=== PATIENT | female | born 1970 | race Caucasian/White ===

== ENCOUNTER 2017-10-20 00:12 | Inpatient (IN) | payer MEDICAID ==
[2017-10-20 01:15] LABS: Absolute Lymphocytes (CBC) 0.4 K/uL (0.7-4.9); Absolute Monocytes 0.5 K/uL (0.1-1.3); Absolute Neutrophil 4.3 K/uL (1.8-8.0); Basophils % 2.3 % (0-1.3); Eosinophils % 6.1 % (0-4.4); Hematocrit 27.8 % (36.0-45.0); Lymphocytes % 7.2 % (15.3-44.8); MCH 32.5 pg (27.0-35.0); MCV 97.6 fL (80-100); MPV 9.5 fL (7.6-11.3); Monocytes % 9.4 % (3.3-12.3); RBC Red Blood Cell Count 2.85 M/uL (3.86-4.86)
[2017-10-20 01:31] LABS: Albumin 2.7 g/dL (3.2-5.5); Bilirubin Direct 0.3 mg/dL (0-0.2); Bilirubin Total 0.9 mg/dL (0.3-1.2); Protein, Total 7.5 g/dL (6.0-8.3)
--- NOTE | 2017-10-20 02:43 | EDPHYS ---
Physician Documentation [facility] Name: Amauri Miller Age: 47 yrs Sex: Female : 1970 Arrival Date: 10/20/2017 Time: 00:14 Bed 20 Private MD: ED Physician Gilberto Duenas HPI: 10/20 02:36 This 47 yrs old Female presents to ER via Wheelchair with complaints of LIVER gs PROBLEMS, POSSIBLE HIGH AMONIA LEVELS. 02:36 The patient presents to the emergency department with weakness of the entire body, gs generalized weakness. Onset: The symptoms/episode began/occurred 1 week(s) ago, and became worse and became persistent. Associated signs and symptoms: Pertinent negatives: altered mental status. Severity of symptoms: At their worst the symptoms were moderate in the emergency department the symptoms are unchanged. Current symptoms: Currently, the patient is not experiencing any symptoms. The patient has experienced similar episodes in the past, several times. EDI ARCHITECT: 03:30 LMP N/A - lk1 Historical: - Allergies: 00:33 No Known Allergies; ak1 - Home Meds: 00:33 ciprofloxacin chl 500 mg once dialy for 30 days [Active]; ferrous sulfate 134 mg (27 mg ak1 iron) Oral tab [Active]; folic acid 1 mg Oral tab 1 tab once daily [Active]; furosemide 40 mg Oral tab 1 tab once daily [Active]; lactulose 20 gram/30 mL Oral soln 30 mL 3 times per day [Active]; multivitamin with minerals Oral tab [Active]; nadolol 20 mg Oral tab 1 tab once daily [Active]; omeprazole 20 mg Oral cpDR 2 caps 2 times per day [Active]; Zofran (as hydrochloride) 4 mg Oral tab 2 tabs for one tab as needed [Active]; potassium chloride 20 mEq Oral TbTQ 1 tab once daily [Active]; rifaximin 550 mg tab Oral 1 tab 2 times per day [Active]; sodium bicarbonate 650 mg Oral tab twice a day [Active]; spironolactone 100 mg Oral tab 1 tab once daily [Active]; vitamin b1 [Active]; Vitamin B-6 Oral [Active]; - PMHx: 00:33 Anemia; Cirrhosis; Hernia; second one, not repaired; possible htn; ak1 - PSHx: 00:33 Hernia repair; paracentesis- 7 or 8 L removed weekly; ak1 - Immunization history:: Adult Immunizations unknown. - Social history:: Smoking status: Patient uses tobacco products, denies chronic smoking, but will smoke occasionally. ROS: 02:36 All other systems are negative. gs Exam: 02:36 Head/Face: Normocephalic, atraumatic. Eyes: Pupils equal round and reactive to light, gs extra-ocular motions intact. Lids and lashes normal. Conjunctiva and sclera are non-icteric and not injected. Cornea within normal limits. Periorbital areas with no swelling, redness, or edema. ENT: Nares patent. No nasal discharge, no septal abnormalities noted. Tympanic membranes are normal and external auditory canals are clear. Oropharynx with no redness, swelling, or masses, exudates, or evidence of obstruction, uvula midline. Mucous membranes moist. Neck: Trachea midline, no thyromegaly or masses palpated, and no cervical lymphadenopathy. Supple, full range of motion without nuchal rigidity, or vertebral point tenderness. No Meningismus. Chest/axilla: Normal chest wall appearance and motion. Nontender with no deformity. No lesions are appreciated. Cardiovascular: Regular rate and rhythm with a normal S1 and S2. No gallops, murmurs, or rubs. Normal PMI, no JVD. No pulse deficits. Respiratory: Lungs have equal breath sounds bilaterally, clear to auscultation and percussion. No rales, rhonchi or wheezes noted. No increased work of breathing, no retractions or nasal flaring. Back: No spinal tenderness. No costovertebral tenderness. Full range of motion. Skin: Warm, dry with normal turgor. Normal color with no rashes, no lesions, and no evidence of cellulitis. MS/ Extremity: Pulses equal, no cyanosis. Neurovascular intact. Full, normal range of motion. Neuro: Awake and alert, GCS 15, oriented to person, place, time, and situation. Cranial nerves II-XII grossly intact. Motor strength 5/5 in all extremities. Sensory grossly intact. Cerebellar exam normal. Normal gait. 02:36 Constitutional: The patient appears alert, awake. 02:36 Abdomen/GI: Inspection: distension, that is moderate, Palpation: abdomen is soft and non-tender, Liver: is enlarged. Vital Signs: 00:30 BP 110 / 76; Pulse 80; Resp 18; Temp 98.4; Pulse Ox 100% on R/A; Weight 61.69 kg (R); ak1 Height 5 ft. 6 in. (167.64 cm) (R); Pain 10/10; 01:00 BP 101 / 62; Pulse 79; Resp 18; Pulse Ox 100% on R/A; lk1 01:30 BP 79 / 55; Pulse 82; Resp 16; Pulse Ox 100% on R/A; Pain 0/10; lk1 02:30 BP 83 / 47; Pulse 79; Resp 16; Pulse Ox 100% on R/A; lk1 03:00 BP 89 / 52; Pulse 86; Resp 15; Pulse Ox 100% on R/A; lk1 03:30 BP 86 / 53; Pulse 85; Resp 16; Pulse Ox 99% on R/A; lk1 00:30 Body Mass Index 21.95 (61.69 kg, 167.64 cm) ak1 01:30 sleeping lk1 03:00 sleeping lk1 03:30 sleeping lk1 MDM: 00:42 Patient medically screened. 02:36 Data reviewed: vital signs, nurses notes. Data interpreted: physical therapy coordinator: Pulse gs oximetry:. ED course: ddx-liver failure,hyperammonia,gen weakness, sepsis. 03 00:43 Order name: Basic Metabolic Panel 10/20 00:43 Order name: CBC with Diff 10/20 00:43 Order name: Hepatic Function 10/20 00:43 Order name: Lipase 10/20 00:43 Order name: AMMONIA 10/20 00:43 Order name: IV Saline Lock; Complete Time: 00:57 10/20 00:43 Order name: Labs collected and sent; Complete Time: 00:57 10/20 01:18 Order name: CBC with Automated Diff; Complete Time: 01:28 EDMS 10/20 01:25 Order name: Basic Metabolic Panel; Complete Time: 02:33 EDMS 10/20 01:25 Order name: Lipase; Complete Time: 02:33 EDMS 10/20 01:31 Order name: Ammonia; Complete Time: 02:33 EDMS 10/20 01:32 Order name: Liver (Hepatic) Function; Complete Time: 02:33 EDMS Administered Medications: 04:12 Drug: Lactulose 30 grams Volume: 45 ml; Route: PO; lk1 04:43 Follow up: Response: No adverse reaction lk1 Disposition: 10/20/17 02:43 Hospitalization ordered by Lizeth Etienne for Inpatient Admission. Preliminary diagnosis is Encephalopathy, unspecified. - Bed requested for Telemetry/MedSurg (Inpatient). - Status is Inpatient Admission. lk1 - Condition is Stable. - Problem is new. - Symptoms are unchanged. UTI on Admission? No Signatures: Dispatcher [employer] EDMS Josi Ruiz RN RN Angella Gtz RN KIMBERLY mo1 Lorena Claire RN RN lk1 Gilberto Duenas MD MD gs Corrections: (The following items were deleted from the chart) 00:57 00:44 UA MICROSCOPIC+U.LAB.BRZ ordered. EDMS EDMS
--- NOTE | 2017-10-20 02:43 | ER ---
Nurse's Notes [facility] Name: Amauri Miller Age: 47 yrs Sex: Female : 1970 Arrival Date: 10/20/2017 Time: 00:14 Bed 20 Private MD: Diagnosis: Encephalopathy, unspecified Presentation: 10/20 00:30 Presenting complaint: Patient states: pain to abd hernia site. pt stated pt ak1 ammonia lever may be high. pt abd was drained last on Saturday. pt c/o vomiting 3 times today. Transition of care: patient was not received from another setting of care. Onset of symptoms is unknown. Care prior to arrival: None. 00:30 Method Of Arrival: Wheelchair ak1 00:30 Acuity: CASI 4 ak1 Triage Assessment: 00:33 General: Appears in no apparent distress. Behavior is calm, cooperative. 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 LMP N/A - lk1 Historical: - Allergies: 00:33 No Known Allergies; ak1 - Home Meds: 00:33 ciprofloxacin chl 500 mg once dialy for 30 days [Active]; ferrous sulfate 134 mg (27 mg ak1 iron) Oral tab [Active]; folic acid 1 mg Oral tab 1 tab once daily [Active]; furosemide 40 mg Oral tab 1 tab once daily [Active]; lactulose 20 gram/30 mL Oral soln 30 mL 3 times per day [Active]; multivitamin with minerals Oral tab [Active]; nadolol 20 mg Oral tab 1 tab once daily [Active]; omeprazole 20 mg Oral cpDR 2 caps 2 times per day [Active]; Zofran (as hydrochloride) 4 mg Oral tab 2 tabs for one tab as needed [Active]; potassium chloride 20 mEq Oral TbTQ 1 tab once daily [Active]; rifaximin 550 mg tab Oral 1 tab 2 times per day [Active]; sodium bicarbonate 650 mg Oral tab twice a day [Active]; spironolactone 100 mg Oral tab 1 tab once daily [Active]; vitamin b1 [Active]; Vitamin B-6 Oral [Active]; - PMHx: 00:33 Anemia; Cirrhosis; Hernia; second one, not repaired; possible htn; ak1 - PSHx: 00:33 Hernia repair; paracentesis- 7 or 8 L removed weekly; ak1 - Immunization history:: Adult Immunizations unknown. - Social history:: Smoking status: Patient uses tobacco products, denies chronic smoking, but will smoke occasionally. Screenin:04 Abuse screen: Denies threats or abuse. Denies injuries from another. Nutritional lk1 screening: No deficits noted. Tuberculosis screening: No symptoms or risk factors identified. Fall Risk Total Mora Fall Scale indicates High Risk Score (45 or more points). Fall prevention measures have been instituted. Side Rails Up X 2 Placed Close to Nursing Station Frequent Obs/Assessments Occuring Family Present and informed to notify staff if the need to leave the bedside As available patient and family educated on Fall Prevention Program and Strategies. Assessment: 00:35 General: Appears uncomfortable, Behavior is calm, cooperative, appropriate for age. lk1 Pain: Complains of pain in abdomen Pain currently is 10 out of 10 on a pain scale. Quality of pain is described as aching. Neuro: Level of Consciousness is awake, alert, obeys commands, Oriented to person, place, time, situation, Moves all extremities. Weakness Gait is unsteady, Speech is normal, Facial symmetry appears normal, Patient states she "feels woozy" and "My vision is a little blurry" and "I can tell my ammonia his high when I feel like this" . Cardiovascular: Heart tones S1 S2 present Capillary refill < 3 seconds Patient's skin is warm and dry. Respiratory: Airway is patent Respiratory effort is even, unlabored, Respiratory pattern is regular, symmetrical, Breath sounds are clear bilaterally. GI: Abdomen is distended, noted to have ascites, Bowel sounds diminished in right upper quadrant, left upper quadrant, right lower quadrant and left lower quadrant. : : No signs and/or symptoms were reported regarding the genitourinary system. EENT: No signs and/or symptoms were reported regarding the EENT system. Derm: No signs and/or symptoms reported regarding the dermatologic system. Musculoskeletal: No signs and/or symptoms reported regarding the musculoskeletal system. Vital Signs: 00:30 BP 110 / 76; Pulse 80; Resp 18; Temp 98.4; Pulse Ox 100% on R/A; Weight 61.69 kg (R); ak1 Height 5 ft. 6 in. (167.64 cm) (R); Pain 10/10; 01:00 BP 101 / 62; Pulse 79; Resp 18; Pulse Ox 100% on R/A; lk1 01:30 BP 79 / 55; Pulse 82; Resp 16; Pulse Ox 100% on R/A; Pain 0/10; lk1 02:30 BP 83 / 47; Pulse 79; Resp 16; Pulse Ox 100% on R/A; lk1 03:00 BP 89 / 52; Pulse 86; Resp 15; Pulse Ox 100% on R/A; lk1 03:30 BP 86 / 53; Pulse 85; Resp 16; Pulse Ox 99% on R/A; lk1 00:30 Body Mass Index 21.95 (61.69 kg, 167.64 cm) ak1 01:30 sleeping lk1 03:00 sleeping lk1 03:30 sleeping lk1 ED Course: 00:14 Patient arrived in ED. al2 00:26 Gilberto Duenas MD is Attending Physician. gs 00:31 Triage completed. ak1 00:33 Arm band placed on Patient placed in an exam room, Patient notified of wait time. ak1 00:57 AMMONIA Sent. cc 00:57 Basic Metabolic Panel Sent. cc 00:57 CBC with Diff Sent. cc 00:57 Hepatic Function Sent. cc 00:57 Lipase Sent. cc 00:57 Initial lab(s) drawn, by me, sent to lab. Inserted saline lock: 20 gauge in right cc forearm, using aseptic technique. Blood collected. 00:59 Lorena Claire, KIMBERLY is Primary Nurse. lk1 02:42 Lizeth Etienne MD is Hospitalizing Provider. gs 04:04 Patient has correct armband on for positive identification. Placed in gown. Bed in low lk1 position. Call light in reach. Adult w/ patient. 04:04 No provider procedures requiring assistance completed. lk1 04:05 Patient admitted, IV remains in place. lk1 Administered Medications: 04:12 Drug: Lactulose 30 grams Volume: 45 ml; Route: PO; lk1 04:43 Follow up: Response: No adverse reaction lk1 Outcome: 02:43 Decision to Hospitalize by Provider. gs 04:42 Admitted to Med/surg accompanied by tech, via stretcher, room 401, with chart. lk1 04:42 Condition: unchanged 04:42 Discharge instructions given to patient, family, Instructed on the need for admit, Demonstrated understanding of instructions. 04:43 Patient left the ED. lk1 Signatures: TenriismSusanne whitlock Amber RN RN ak1 Lorena Claire, RN RN lk1 Gilberto Duenas MD MD gs Love, Angelica al2 Corrections: (The following items were deleted from the chart) 04:05 04:04 IV discontinued, lk1 lk1
[2017-10-20] MEDS ORDERED: ACETAMINOPHEN 500 MG TAB PO PRN (03:26)
[2017-10-20] MEDS: LACTULOSE 20 GM/30 ML UCUP PO SCH ×4 (04:00→21:33)
[2017-10-20] MEDS ORDERED: LACTULOSE 20 GM/30 ML UCUP ONE (04:13)
[2017-10-20] MEDS: MORPHINE 2 MG/ML SYR IV PRN ×3 (05:38→21:33)
[2017-10-20] MEDS: NA CHLORIDE 0.9% 1,000 ML IV SCH (05:38)
[2017-10-20] MEDS ORDERED: VANCOMYCIN 1.5 GM in NA CHLORIDE 0.9% 500 ML IVPB ONE (06:30)
[2017-10-20] MEDS: NADOLOL 40 MG TAB PO SCH (08:23)
[2017-10-20] MEDS: MULTIVITAMIN TAB PO SCH (08:23)
[2017-10-20] MEDS: THIAMINE HCL 100 MG TABLET PO SCH (08:23)
[2017-10-20] MEDS: FERROUS SULFATE 325 MG TAB PO SCH (08:24)
[2017-10-20] MEDS: PANTOPRAZOLE 40MG TABLET PO SCH (08:24)
[2017-10-20] MEDS: PYRIDOXINE (VIT B6) 50 MG TAB PO SCH (08:25)
[2017-10-20] MEDS: Rifaximin 550 MG Tab PO SCH ×2 (08:25→21:00)
[2017-10-20] MEDS: ASPIRIN 81 MG CHEWABLE TABLET PO SCH (08:28)
[2017-10-20] MEDS: FOLIC ACID 1 MG TABLET PO SCH (08:28)
[2017-10-20] MEDS: ONDANSETRON 4 MG/2 ML VIAL IV PRN (08:33)
[2017-10-20] MEDS ORDERED: FUROSEMIDE 40 MG TABLET PO SCH (09:00)
[2017-10-20] MEDS ORDERED: SPIRONOLACTONE 100 MG TAB PO SCH (09:00)
--- NOTE | 2017-10-20 09:06 | P.HP ---
Certification for Inpatient Patient admitted to: Inpatient With expected LOS: >2 Midnights Practitioner: I am a practitioner with admitting privileges, knowledge of patient current condition, hospital course, and medical plan of care. Services: Services provided to patient in accordance with Admission requirements found in Title 42 Section 412.3 of the Code of Federal Regulations Patient History Date of Service: 10/20/17 Reason for admission: Hepatic encephalopathy History of Present Illness: Patient is a 47-year-old female who came into the hospital with altered mental status. Patient recently had a paracentesis done this past Saturday. Patient had 4-5 L of fluid removed. Patient felt somewhat better however she did become more altered. Patient has a history of alcoholic liver cirrhosis. Patient's last drink was about 2 weeks ago. She has had a hard time remaining sober. She has had many family members who have recently. It has been very stressful for her. I had a long talk with her regarding her current condition and the importance of refraining from alcohol so she can possibly get to see a lead accountant and try to get on the transplant list. On this admission , she came in with an elevated ammonia level. She was found to have hepatic encephalopathy. She will be admitted to the hospital for further treatment. She is scheduled for a paracentesis to have additional fluid removed in the morning. We will go ahead and consult Gastroenterology to see if we can arrange for this in the morning. Allergies NKDA Allergy (Uncoded 09/21/15 18:36) Unknown No Known Allergies Allergy (Uncoded 08/16/17 17:44) Unknown Home Medications: Aspirin Chewable [Aspirin Chewable*] 81 mg PO DAILY 02/15/16 Furosemide [Lasix*] 40 mg PO DAILY 02/15/16 Lactulose 20 gm PO TID 02/15/16 Spironolactone [Aldactone*] 20 mg PO DAILY 02/15/16 Ferrous Sulfate [Slow Fe] 1 tab PO DAILY 10/20/17 Folic Acid 1 tab PO DAILY 10/20/17 Multivitamin-Min/Iron/FA/Vit K [Multi-Day Plus Minerals Tablet] 1 tab PO DAILY 10/20/17 Nadolol 1 tab PO DAILY 10/20/17 Omeprazole 1 cap PO DAILY 10/20/17 Ondansetron HCl 1 tab PO Q12HP 10/20/17 Potassium Chloride [K-Dur] 1 tab PO DAILY 10/20/17 Pyridoxine HCl [Vitamin B-6] 1 tab PO DAILY 10/20/17 Rifaximin [Xifaxan] 1 tab PO BID 10/20/17 Sodium Bicarbonate 1 tab PO BID 10/20/17 Thiamine Mononitrate [Vitamin B-1] 1 tab PO DAILY 10/20/17 - Past Medical/Surgical History Has patient received pneumonia vaccine in the past: No Diabetic: No -: Alcoholic liver cirrhosis -: anemia -: Paracentesis -: Hernia repair - Family History Father Notes: pt adopted, does not any history of her parents. - Social History Smoking Status: Smoker current status UNK Alcohol use: Yes CD- Drugs: No Caffeine use: No Place of Residence: Home Physical Examination - Vital Signs Temperature: 97.6 F Blood Pressure: 83/59 Pulse: 86 Respirations: 20 Pulse Ox (%): 99 - Studies Laboratory Data (last 24 hrs) 10/20/17 00:52: WBC 5.8, Hgb 9.3 L, Hct 27.8 L, Plt Count 162 10/20/17 00:52: Sodium 134 L, Potassium 4.0, BUN 40 H, Creatinine 2.73 H, Glucose 107, Total Bilirubin 0.9, AST 36, ALT 19, Alkaline Phosphatase 87, Lipase 33 Assessment & Plan - Advance Directives Does patient have a Living Will: No Does patient have a Durable POA for Healthcare: No
--- NOTE | 2017-10-20 09:22 | P.HP ---
Certification for Inpatient Patient admitted to: Inpatient With expected LOS: >2 Midnights Patient will require the following post-hospital care: None Practitioner: I am a practitioner with admitting privileges, knowledge of patient current condition, hospital course, and medical plan of care. Services: Services provided to patient in accordance with Admission requirements found in Title 42 Section 412.3 of the Code of Federal Regulations Patient History Date of Service: 10/20/17 Reason for admission: hepatic encephalopathy History of Present Illness: Patient is a 47-year-old female who was admitted to the hospital with altered mental status. Patient has a history of alcoholic liver cirrhosis. Patient recently had a paracentesis performed. Patient had 4-5 L of fluid removed and was scheduled to return back Saturday on October 21. However she became obtunded and her brought her into the hospital for further evaluation. In the emergency room she had multiple labs performed.. Patient had an elevated ammonia level and she will require admission for hepatic encephalopathy. Patient also has a wound above the umbilicus. This occurred after she had developed significant amount of ascites. She will need continued IV antibiotic therapy for the wound. We will also order Bactroban ointment for the wound. Allergies NKDA Allergy (Uncoded 09/21/15 18:36) Unknown No Known Allergies Allergy (Uncoded 08/16/17 17:44) Unknown Home Medications: Aspirin Chewable [Aspirin Chewable*] 81 mg PO DAILY 02/15/16 Furosemide [Lasix*] 40 mg PO DAILY 02/15/16 Lactulose 20 gm PO TID 02/15/16 Spironolactone [Aldactone*] 20 mg PO DAILY 02/15/16 Ferrous Sulfate [Slow Fe] 1 tab PO DAILY 10/20/17 Folic Acid 1 tab PO DAILY 10/20/17 Multivitamin-Min/Iron/FA/Vit K [Multi-Day Plus Minerals Tablet] 1 tab PO DAILY 10/20/17 Nadolol 1 tab PO DAILY 10/20/17 Omeprazole 1 cap PO DAILY 10/20/17 Ondansetron HCl 1 tab PO Q12HP 10/20/17 Potassium Chloride [K-Dur] 1 tab PO DAILY 10/20/17 Pyridoxine HCl [Vitamin B-6] 1 tab PO DAILY 10/20/17 Rifaximin [Xifaxan] 1 tab PO BID 10/20/17 Sodium Bicarbonate 1 tab PO BID 10/20/17 Thiamine Mononitrate [Vitamin B-1] 1 tab PO DAILY 10/20/17 - Past Medical/Surgical History Has patient received pneumonia vaccine in the past: No Diabetic: No -: Alcoholic liver cirrhosis -: anemia -: Paracentesis -: Hernia repair - Family History Father Notes: pt adopted, does not any history of her parents. - Social History Smoking Status: Smoker current status UNK Alcohol use: Yes CD- Drugs: No Caffeine use: No Place of Residence: Home Review of Systems 10-point ROS is otherwise unremarkable Physical Examination - Vital Signs Temperature: 97.6 F Blood Pressure: 83/59 Pulse: 86 Respirations: 20 Pulse Ox (%): 99 - Physical Exam General: Alert, In no apparent distress HEENT: Atraumatic, PERRLA, Mucous membr. moist/pink, EOMI, Sclerae nonicteric Neck: Supple, 2+ carotid pulse no bruit, No LAD, Without JVD or thyroid abnormality Respiratory: Clear to auscultation bilaterally, Normal air movement Cardiovascular: Regular rate/rhythm, Normal S1 S2, No murmurs Gastrointestinal: Soft and benign, No rebound, No guarding, Distended, Ascites, Tenderness Musculoskeletal: No clubbing, No swelling, No tenderness Integumentary: No rashes Neurological: Normal gait, Normal speech, Normal strength at 5/5 x4 extr, Normal tone, Normal affect Lymphatics: No axilla or inguinal lymphadenopathy - Studies Laboratory Data (last 24 hrs) 10/20/17 00:52: WBC 5.8, Hgb 9.3 L, Hct 27.8 L, Plt Count 162 10/20/17 00:52: Sodium 134 L, Potassium 4.0, BUN 40 H, Creatinine 2.73 H, Glucose 107, Total Bilirubin 0.9, AST 36, ALT 19, Alkaline Phosphatase 87, Lipase 33 Assessment & Plan - Problems (Diagnosis) (1) Hepatic encephalopathy Onset Date: 09/21/15 Current Visit: Yes Status: Acute (2) Alcoholic cirrhosis of liver Current Visit: No Status: Acute - Plan Plan: 1. Lactulose and rifaximin 2. Monitor ammonia level 3. GI consultation 4. Ultrasound-guided paracentesis 5. Neuro checks q.4 hours 6. Monitor hemodynamics and hold blood pressure meds if systolic blood pressure less than 100 7. Monitor patient for DTs even though she states that she has not had anything to drink for over 2 weeks. Discharge Plan: Home Plan to discharge in: Greater than 2 days - Advance Directives Does patient have a Living Will: No Does patient have a Durable POA for Healthcare: No - Code Status/Comfort Care Code Status Assessed: Yes Code Status: Full Code Critical Care: No Time Spent Managing PTS Care (In Minutes): 50
--- NOTE | 2017-10-20 09:38 | P.PN ---
Subjective Date of Service: 10/20/17 Primary Care Provider: None; GI-Dr. Solis Chief Complaint: hepatic encephalopathy Subjective: Improving (Patient more alert and appropriate this morning. at bedside. No abdominal pain noted. No nausea vomiting. Patient requests a diet. Patient admits not being compliant with lactulose. Patient recently moved back from [place] to the area. She has been in this area before.) Physical Examination - Vital Signs Temperature: 97.6 F Blood Pressure: 83/59 Pulse: 86 Respirations: 20 Pulse Ox (%): 99 - Physical Exam General: Alert, In no apparent distress, Oriented x3, Cooperative, Disheveled HEENT: Atraumatic Neck: Supple Respiratory: Clear to auscultation bilaterally, Normal air movement Cardiovascular: Normal pulses, Regular rate/rhythm Gastrointestinal: Normal bowel sounds, Soft and benign, No tenderness, No masses , No rebound, No guarding, Other (Mild irritation to the skin near the umbilicus. No exudate noted.), Ascites Musculoskeletal: No erythema, No tenderness, No warmth Integumentary: No tenderness/swelling, No erythema, No warmth, No cyanosis Neurological: Normal speech, Normal strength at 5/5 x4 extr, Normal tone, Normal affect Lymphatics: No axilla or inguinal lymphadenopathy - Studies Laboratory Data (last 24 hrs) 10/20/17 00:52: WBC 5.8, Hgb 9.3 L, Hct 27.8 L, Plt Count 162 10/20/17 00:52: Sodium 134 L, Potassium 4.0, BUN 40 H, Creatinine 2.73 H, Glucose 107, Total Bilirubin 0.9, AST 36, ALT 19, Alkaline Phosphatase 87, Lipase 33 Medications List Reviewed: Yes Assessment & Plan - Problems (Diagnosis) (1) History of esophageal varices Current Visit: Yes Status: Chronic Plan: Will continue with nadolol and PPI. Will monitor closely. May need to hold nadolol if blood pressure systolic less than 120. GI has been consulted. Will monitor for any bleeding. No reports of bleeding at this time. (2) Anemia Current Visit: Yes Status: Chronic Plan: This is likely of chronic disease. Will continue with vitamin supplementation. Will hold off on DVT prophylaxis due to history of alcohol abuse, alcohol cirrhosis and history of esophageal varices. Qualifiers: Anemia type: other cause Other causes of anemia: chronic disease, other Qualified Code(s): D63.8 - Anemia in other chronic diseases classified elsewhere (3) Chronic kidney disease Current Visit: Yes Status: Acute Plan: Patient with acute on chronic kidney disease. Will monitor closely. Will check renal ultrasound. Nephrology has been consulted to further address. Qualifiers: Chronic kidney disease stage: stage 4 (severe) Qualified Code(s): N18.4 - Chronic kidney disease, stage 4 (severe) (4) Grief reaction Current Visit: Yes Status: Acute Plan: Patient reports grief reaction. Patient will need counseling as an outpatient. (5) Ascites Current Visit: Yes Status: Acute Plan: Patient reports getting paracentesis weekly. She had 1 done last week. Patient with ascites. Will set up a radiology assisted paracentesis for tomorrow. GI consulted to further address. Qualifiers: Ascites type: due to alcoholic hepatitis Qualified Code(s): K70.11 - Alcoholic hepatitis with ascites (6) Hepatic encephalopathy Onset Date: 09/21/15 Current Visit: Yes Status: Acute Plan: Patient presented with hepatic encephalopathy. Her mentation is much improved. Patient admits to being noncompliant with lactulose. Will continue with lactulose and Xifaxan. Compliance addressed in detail. Will recheck ammonia level tomorrow. Anticipate discharge within the next 1-2 days. (7) Alcoholic cirrhosis Current Visit: Yes Status: Chronic Plan: Patient with chronic alcoholic cirrhosis and ascites. Will continue with above plan of care. GI has been consulted to further address. Patient will have radiology assisted paracentesis tomorrow. Will continue with lactulose and Xifaxan. Compliance with lactulose addressed in detail. Compliance with alcohol cessation addressed in detail. Qualifiers: Ascites presence: with ascites Qualified Code(s): K70.31 - Alcoholic cirrhosis of liver with ascites (8) GERD (gastroesophageal reflux disease) Current Visit: Yes Status: Chronic Plan: Will continue with PPI. Qualifiers: Esophagitis presence: esophagitis presence not specified Qualified Code(s) : K21.9 - Gastro-esophageal reflux disease without esophagitis Discharge Plan: Home Plan to discharge in: 48 Hours Time Spent Managing Pts Care (In Minutes): 55
[2017-10-20 11:56] LABS: Urine Appearance CLEAR; Urine Bilirubin NEGATIVE (NEG); Urine Blood NEGATIVE (NEG); Urine Color YELLOW; Urine Glucose NEGATIVE (NEG); Urine Microscopic Reflex ORDER UMIC; Urine Protein TRACE (NEG); Urine Specific Gravity 1.025 (1.005-1.030); Urine Urobilinogen 0.2 mg/dL (0.2-1.0)
[2017-10-20 13:26] LABS: Urine Bacteria <20 /HPF (<20); Urine Culture Reflex Order NOT NEEDED; Urine RBC <5 /HPF (NONE SEEN)
--- NOTE | 2017-10-20 16:33 | CON ---
Date of Consultation: 10/20/2017 Reason For Consultation: Mental status change. History Of Present Illness: Ms. Miller is a 47-year-old female, well known to our practice with history of alcoholic cirrhosis and past encephalopathy. She recently underwent ascitic fluid tap. Approxim ately 5 L were taken out. She was brought to the hospital with mental status change. However, since brought to the hospital ov er the night, her condition has improved. She is now alert and oriented x3. Denies any hematemesis, melena, or hematochezia. Denies any odynophagia or dysphagia. However, her indicates that she ran out of antibiotic, which is Xifaxan. At this time, the patient denies any abdominal pain, any shortness of breath. Her abdomen is swollen ; however, denies any shortness of breath. Past Medical History: As elaborated above. Past Surgical History: As above. Family History: Unchanged. Social History: Unchanged. Psych History: Unchanged. Review of Systems: General: No weight loss. Some weight gain since last paracentesis. No fever or chills. GI: As elaborated above. Hematologic: As elaborated above. Pulmonary: No shortness of breath, cough, or expectoration. Cardiac: No orthopnea or dyspnea, although she has significant ascites. Genitourinary: No complaint. Musculoskeletal: Generalized weakness and fatigue. Neuropsychiatric: As elaborated above. Neuroendocrine: None. Physical Examination: General: Young female, at this time no other acute distress noted other than ascites. Hemodynamic r espiratory profile within normal range. HEENT: Atraumatic, normocephalic. Some bitemporal wasting. Positive icterus. Mild pallor. Oropha rynx is clear. Neck: Supple. No lymphadenopathy. Trachea in central position. Chest: Clear to auscultation and percussion. Cardiovascular: Normal S1, S2. No S3, no S4. Abdomen: Soft, however, has significant amount of ascites with umbilical hernia. Umbilicus is jesu ed. Bowel sounds are present. No tenderness whatsoever. No hepatomegaly. No splenomegaly. Positi ve fluid thrill. Neurologic: Alert and oriented x3. Intact memory, mentation, and judgment. Very mild asterixis sti ll present. Extremities: Upper and lower extremities are normal, symmetrical. Can move all her extremities. Dermatologic: Normal. Diagnostic Data: Reviewed, analyzed, and discussed with the patient. Hemoglobin and hematocrit 9.3 and 27 respectively. Impression, Plan, And Recommendation: Ms. Miller is a 47-year-old female with hepatic encephalopathy; h owever, her condition is rapidly improving. She has alcoholic cirrhosis. I have had a long discussion with the patient and her family regarding the outcome and I have told th em that we cannot cure her disease; however, we can always give her supportive treatment. She has to be always of Xifaxan and continue on this medication. She still has mild amount of asterixis, which will probably improve with time. She still has significant ascites; however, this is not tight ascites and should be conservative in r emoving fluid, should be all as the last measure since we are also removing lot of protein along with that ascites tap. They expressed g ood understanding. MIHIR/HILARIO Voice ID: [id number] Report ID: [id number]
[2017-10-20] MEDS: MUPIROCIN 2% OINT 22GM TUBE TOP SCH (21:00)
[2017-10-20] MEDS: OCTREOTIDE 500 MCG in NA CHLORIDE 0.9% 500 ML IV SCH (23:00)
--- NOTE | 2017-10-20 23:42 | PN ---
Date of Nephrology Consultation: 10/20/2017 Chief Complaint: Acute kidney injury. History Of Present Illness: Acute kidney injury, severe, nonoliguric, associated with fluid overload and tense ascites, in setting of severe hepatorenal syndrome and associated hypotension . The patient has multiple medical problems including history of alcoholic liver cirrhosis. The patient came to the hospital because of generalized weakness, altered mental status, was found to have severe hyperammonemia secondary to liver failure. The patient is admitted for hepatic encephalopathy, is started on lactulose to treat hyperammonemia. The patient apparently has a paracenteses done in last week on Saturday and 4-5 L of fluid were drained. The patient although was feeling weak and became lethargic. Today, she is somewhat alert. She states that she quit alcohol about 2 weeks ago. She denies any history of kidney disease on previous occasion, denies kidney stones and denies hematuria. Review of Systems: Constitutional: Denies fever, chills. Eyes: Denies vision changes. Ears, Nose, Mouth and Throat: Denies sore throat or earache. Respiratory: Denies PND, orthopnea. Cardiovascular: Denies chest pain or palpitations. GI: Denies melena, hematemesis. Complaining of abdominal distention, ascites, and previous history of paracenteses. : Denies dysuria, hematuria. Extremities: Denies tremor, extremity weakness. All other systems reviewed and all are negative. Past Medical History: Alcoholic liver disease, anemia of chronic disease, paracenteses, and hernia repair. Family History: The patient is adopted. She does not know history of the family. Social History: Smoker. History of heavy alcohol use. Physical Examination: Vital Signs: Blood pressure is 83/59, temperature 97.6, respiratory rate 20, and SpO2 99%. Eyes: Anicteric sclerae. EOMI. Ears, Nose, Mouth, and Throat: Oral mucosa moist. No pallor. Neck: Supple. No JVD. No bruits. Cardiovascular: S1, S2 , RRR, no pericardial friction rub Lungs: few crackels at bases.o wheezing Abdomen: Distended, bowel sounds present, tense ascites present . Umbilical hernia present. Extremities: Some edema present. Skin : warm and dry , no skin rashes Laboratory Data: WBC 5.8, hemoglobin 9.3, hematocrit 27.8, and platelet count 162,000. Sodium 134, potassium 4.0, BUN 40, creatinine 2.73, and glucose 107. Total bilirubin 0.9, AST 36, ALT 19, and lipase 33. Impression And Plan: Acute kidney injury, likely severe hepatorenal syndrome associated witj liver cirrhosis, live failure , fluid overload, tense ascites, hypotension leading to severe renal hypoperfusion and likely nonoliguric acute tubular necrosis with elevated azotemia and kidney failure. Patient will start midodrine, IV albumin, and octreotide to treat hepatorenal syndrome and stabilize renal function. The patient may need a challenge with IV normal saline to induce diuresis. The patient may need paracenteses with IV albumin, and GI consultation was obtained for liver cirrhosis. Continue to monitor fluid balance and adjust medication as needed. Monitor electrolytes and avoid spironolactone in the setting of acute kidney injury with hyperazotemia to prevent hyperkalemia secondary to kidney failure and spironolactone effect. The patient has nonoliguric acute kidney injury. Monitor urine output and start octreotide and midodrine for hepatorenal syndrome. Monitor urine output and fluid balance, check renal panel and adjust electrolytes replacement as needed according to current labs results. CT Scan per stone protocol recommended to rule out obstructive uropathy. Check proteinuria screen and rule out active urinary sediment to evaluate for possible nephritis . FÁTIMA/HILARIO Voice ID: [id number] Report ID: [id number] NHAN
[2017-10-21] MEDS: MIDODRINE HCL 5 MG TABLET PO SCH ×5 (00:21→16:40)
[2017-10-21] MEDS ORDERED: NA CHLORIDE 0.9% 500 ML ONE (00:34)
[2017-10-21] MEDS ORDERED: OCTREOTIDE ACETATE 500 MCG/ML ONE (00:34)
[2017-10-21] MEDS: MORPHINE 2 MG/ML SYR IV PRN ×3 (01:31→20:10)
[2017-10-21] MEDS: LACTULOSE 20 GM/30 ML UCUP PO SCH ×4 (04:00→19:57)
[2017-10-21 05:33] VITALS: BMI 24.5
[2017-10-21 05:36] LABS: Absolute Lymphocytes (CBC) 0.5 K/uL (0.7-4.9); Absolute Monocytes 0.5 K/uL (0.1-1.3); Absolute Neutrophil 3.3 K/uL (1.8-8.0); Basophils % 2.7 % (0-1.3); Eosinophils % 7.7 % (0-4.4); Hematocrit 27.5 % (36.0-45.0); Lymphocytes % 9.8 % (15.3-44.8); MCH 32.4 pg (27.0-35.0); MCV 98.4 fL (80-100); MPV 9.6 fL (7.6-11.3); Monocytes % 10.8 % (3.3-12.3); RBC Red Blood Cell Count 2.79 M/uL (3.86-4.86)
[2017-10-21 06:07] LABS: Magnesium 1.8 mg/dL (1.8-2.5); Potassium 3.7 mEq/L (3.6-5.0)
[2017-10-21 07:04] LABS: Arterial Blood Carboxyhemoglob 1.1 % (0-1.5); Blood Gas Oxyhemoglobin 93.9 % (94-97); Blood O2 Saturation 95.4 % (92-98.5)
[2017-10-21 08:56] LABS: Protime INR 1.15
[2017-10-21] MEDS: NADOLOL 40 MG TAB PO SCH (09:00)
[2017-10-21] MEDS ORDERED: SPIRONOLACTONE 100 MG TAB PO SCH (09:00)
[2017-10-21] MEDS: WATER FOR INJ,STERILE 1,000 ML with NA BICARB 8.4% 150 MEQ IV SCH ×4 (09:27→19:51)
--- NOTE | 2017-10-21 10:32 | P.PN ---
Subjective Date of Service: 10/21/17 Primary Care Provider: None; GI-Dr. Solis Chief Complaint: hepatic encephalopathy Subjective: Doing well (Patient improved. Mentation also improved.) Physical Examination - Vital Signs Temperature: 99.2 F Blood Pressure: 101/70 Pulse: 89 Respirations: 12 Pulse Ox (%): 97 - Physical Exam General: Alert, In no apparent distress, Oriented x3, Cooperative HEENT: Atraumatic Neck: Supple Respiratory: Clear to auscultation bilaterally, Normal air movement Cardiovascular: Normal pulses, Regular rate/rhythm Gastrointestinal: Normal bowel sounds, Soft and benign, No tenderness, No masses , No rebound, No guarding, Ascites (Increased ascites noted.) Musculoskeletal: No erythema, No tenderness, No warmth Integumentary: No tenderness/swelling, No erythema, No warmth, No cyanosis Neurological: Normal speech, Normal strength at 5/5 x4 extr, Normal tone, Normal affect Lymphatics: No axilla or inguinal lymphadenopathy - Studies Medications List Reviewed: Yes Assessment & Plan - Problems (Diagnosis) (1) History of esophageal varices Current Visit: Yes Status: Chronic Plan: Patient be continued on nadolol. Patient to have paracentesis today. She will get IV albumin after this. Patient currently in ICU due to cardiorenal syndrome and acute renal failure. Patient getting bicarbonate drip. Adjustments in medications have been done by nephrology. Will continue monitor closely. Aldactone has been discontinued. Patient now on midodrine. (2) Anemia Current Visit: Yes Status: Chronic Plan: This is likely of chronic disease. Will continue with vitamin supplementation. Will hold off on DVT prophylaxis due to history of alcohol abuse, alcohol cirrhosis and history of esophageal varices. Qualifiers: Anemia type: other cause Other causes of anemia: chronic disease, other Qualified Code(s): D63.8 - Anemia in other chronic diseases classified elsewhere (3) Chronic kidney disease Current Visit: Yes Status: Acute Plan: Patient with acute on chronic kidney disease. Patient with noted cardiorenal syndrome. Will continue with above plan of care. Patient in ICU receiving IV bicarbonate. Patient now on midodrine. Adjustments have been done by nephrology. Qualifiers: Chronic kidney disease stage: stage 4 (severe) Qualified Code(s): N18.4 - Chronic kidney disease, stage 4 (severe) (4) Grief reaction Current Visit: Yes Status: Acute Plan: Patient reports grief reaction. Patient will need counseling as an outpatient. (5) Ascites Current Visit: Yes Status: Acute Plan: Patient to get paracentesis today. Patient will need IV albumin after this. Qualifiers: Ascites type: due to alcoholic hepatitis Qualified Code(s): K70.11 - Alcoholic hepatitis with ascites (6) Hepatic encephalopathy Onset Date: 09/21/15 Current Visit: Yes Status: Acute Plan: This appears resolved. Ammonia level much improved. Compliance with her medication addressed in detail. Will continue with lactulose and Xifaxan. (7) Alcoholic cirrhosis Current Visit: Yes Status: Chronic Plan: Patient with chronic alcoholic cirrhosis and ascites. Patient a get paracentesis today. Will continue with current medications. Adjustments have been made. GI has evaluated the patient. GI reports that the patient is not a good candidate for liver transplant at this time due to her use of alcohol. Qualifiers: Ascites presence: with ascites Qualified Code(s): K70.31 - Alcoholic cirrhosis of liver with ascites (8) GERD (gastroesophageal reflux disease) Current Visit: Yes Status: Chronic Plan: Will continue with PPI. Qualifiers: Esophagitis presence: esophagitis presence not specified Qualified Code(s) : K21.9 - Gastro-esophageal reflux disease without esophagitis (9) Cardiorenal syndrome with renal failure Current Visit: Yes Status: Acute Plan: Will continue with nephrology recommendation. Discharge Plan: Home Plan to discharge in: 48 Hours Time Spent Managing Pts Care (In Minutes): 55
--- NOTE | 2017-10-21 10:51 | RAD REPORT ---
EXAM DESCRIPTION: Ultrasound-guided paracentesis CLINICAL HISTORY: Ascites COMPARISON: None. FINDINGS: Informed consent was obtained and time-out was performed. Patient's abdomen was prepped and draped in the usual sterile fashion. 1% lidocaine was used for loca l anesthetic purposes. A small skin incision was made. A paracentesis catheter was guided into the peroneal cavity under son ographic guidance. A small amount of fluid was sent for requested lab studies. Following this, a large volume paracentes is was performed. 7 liters of clear fluid was obtained. The patient tolerated the procedure well. IMPRESSION: Successful ultrasound-guided paracentesis.
[2017-10-21] MEDS: THIAMINE HCL 100 MG TABLET PO SCH (11:03)
[2017-10-21] MEDS: FOLIC ACID 1 MG TABLET PO SCH (11:03)
[2017-10-21] MEDS: FERROUS SULFATE 325 MG TAB PO SCH (11:03)
[2017-10-21] MEDS: OCTREOTIDE 500 MCG in NA CHLORIDE 0.9% 500 ML IV SCH ×2 (11:03→19:51)
[2017-10-21] MEDS: PANTOPRAZOLE 40MG TABLET PO SCH (11:04)
[2017-10-21] MEDS: MULTIVITAMIN TAB PO SCH (11:04)
[2017-10-21] MEDS: MUPIROCIN 2% OINT 22GM TUBE TOP SCH ×2 (11:04→22:36)
[2017-10-21] MEDS: ASPIRIN 81 MG CHEWABLE TABLET PO SCH (11:04)
--- NOTE | 2017-10-21 12:31 | RAD REPORT ---
EXAM DESCRIPTION: CT - Stone Protocol - 10/21/2017 12:02 pm CLINICAL HISTORY: Flank pain. Renal failure. COMPARISON: None. TECHNIQUE: Axial images were obtained without oral or IV contrast. Lack of contrast limits solid org an and vascular assessment. The [id number] spans the entirety of the system partially obscuring uppermost abdomen and lung bases. Coronal reformatted images were obtained and reviewed. All CT scans are performed using dose optimization technique as appropriate and may include automated exposure control or mA/KV adjustment according to patient size. FINDINGS: Mild linear atelectasis is present in the right lung base. The liver has a nodular contour with areas of fibrosis in the right lobe suspected. This is compatibl e cirrhosis. Small hiatal hernia is present with evidence of esophageal varices. The spleen is mildly enlarged. The pancreas, adrenal glands and kidneys show no acute noncontrast finding. Gallstone is p resent in gallbladder. Moderate volume ascites. No bowel obstruction or free air. No evidence of intra-abdominal abscess. Normal appendix noted. No significant bony abnormality. IMPRESSION: No renal stone or hydronephrosis. Moderate ascites with evidence of liver cirrhosis and mild splenomegaly. Cholelithiasis.
[2017-10-21] MEDS: Rifaximin 550 MG Tab PO SCH ×2 (14:10→19:57)
[2017-10-21] MEDS: PYRIDOXINE (VIT B6) 50 MG TAB PO SCH (14:10)
[2017-10-21 14:59] LABS: Appearance CLEAR (CLEAR); Body Fluid Source PERITONEAL; Body Fluid WBC 3 /mm^3; Color of fluid Yellow (COLORLESS)
[2017-10-21] MEDS ORDERED: ALBUMIN HUMAN 25% 200 ML IV ONE (16:30)
[2017-10-21] MEDS ORDERED: TRAMADOL HCL 50 MG TAB PO PRN (16:32)
[2017-10-21] MEDS ORDERED: HALOPERIDOL LACT 5 MG/ML INJ IV PRN (19:29)
[2017-10-21] MEDS ORDERED: LORazepam 2 MG/ML VIAL IV PRN (19:29)
[2017-10-21] MEDS: NA CHLORIDE 0.9% 1,000 ML IV SCH (23:00)
--- NOTE | 2017-10-22 00:04 | PN ---
Date of Progress Note: 10/21/2017 Chief Complaint: Acute kidney injury. Subjective: Acute kidney injury, severe, nonoliguric associated with chronic liver disease and tense ascites. The patient has multiple medical problems including alcoholic liver cirrhosis, chronic ascites. She presented to the hospital because of altered mental status, confusion, was found to have hyperammonemia. Lactulose was started and the patient was scheduled to have paracentesis. The patient was transferred to ICU for octreotide drip and midodrine to initiate treatment for hepatorenal syndrome. The patient was found to have nonoliguric acute kidney injury, severe. Renal function has somewhat improved since yesterday. Lab work showed creatinine was 2.73 and BUN 40 yesterday. Today, BUN is 31 and creatinine 1.63. Review of Systems: Denies fever, chills. Objective: Lungs: Clear to auscultation bilaterally. Heart: S1, S2. Abdomen: Soft, benign. Extremities: Edema present in both legs. Laboratory Data: Sodium 136, potassium 3.7, chloride 114, CO2 12, BUN 31, creatinine 1.63, glucose 106, ammonia 76. Impression And Plan: 1. Severe metabolic acidosis, hyperchloremic secondary to gastrointestinal losses due to treatment with lactulose and multiple loose bowel movements. The patient developed metabolic acidosis despite the fact that she is on bicarbonate drip. Plan is to increase bicarbonate drip rate. Re-evaluate electrolytes. 2. Acute kidney injury. Continue octreotide and midodrine for hepatorenal syndrome. Monitor potassium level and start spironolactone for potassium sparing effect when renal function improves. 3. Acute kidney injury, hepatorenal syndrome. The patient is responding to midodrine. Continue treatment as before. monitor urine output and fluid balance . I spent total 36 min including 26 min to coordinate care plan. FÁTIMA/MODL Voice ID: [id number] Report ID: [id number] NHAN
[2017-10-22] MEDS: MORPHINE 2 MG/ML SYR IV PRN (00:42)
[2017-10-22] MEDS: ACETAMINOPHEN 500 MG TAB PO PRN ×2 (01:27→12:27)
[2017-10-22 04:35] LABS: Absolute Lymphocytes (CBC) 0.3 K/uL (0.7-4.9); Absolute Monocytes 0.5 K/uL (0.1-1.3); Absolute Neutrophil 3.9 K/uL (1.8-8.0); Basophils % 2.1 % (0-1.3); Eosinophils % 4.5 % (0-4.4); Hematocrit 25.3 % (36.0-45.0); Lymphocytes % 6.4 % (15.3-44.8); MCH 32.8 pg (27.0-35.0); MCV 97.7 fL (80-100); MPV 9.3 fL (7.6-11.3); Monocytes % 10.6 % (3.3-12.3); RBC Red Blood Cell Count 2.58 M/uL (3.86-4.86)
[2017-10-22 04:43] LABS: Potassium 3.7 mEq/L (3.6-5.0)
[2017-10-22] MEDS: LACTULOSE 20 GM/30 ML UCUP PO SCH ×3 (04:44→15:46)
[2017-10-22 04:56] LABS: Magnesium 1.7 mg/dL (1.8-2.5)
[2017-10-22] MEDS ORDERED: POTASSIUM CL SA 10 MEQ TAB PO ONE (07:30)
[2017-10-22] MEDS ORDERED: MAGNESIUM SULFATE 1 gm IVPB 1 GM/100 ML BAG IV ONE (07:45)
[2017-10-22] MEDS ORDERED: MIDODRINE HCL 5 MG TABLET PO SCH (09:00)
[2017-10-22] MEDS ORDERED: NADOLOL 40 MG TAB PO SCH (09:00)
[2017-10-22] MEDS: PANTOPRAZOLE 40MG TABLET PO SCH (09:24)
[2017-10-22] MEDS: ASPIRIN 81 MG CHEWABLE TABLET PO SCH (09:25)
[2017-10-22] MEDS: FOLIC ACID 1 MG TABLET PO SCH (09:25)
[2017-10-22] MEDS: THIAMINE HCL 100 MG TABLET PO SCH (09:25)
[2017-10-22] MEDS: MULTIVITAMIN TAB PO SCH (09:25)
[2017-10-22] MEDS: FERROUS SULFATE 325 MG TAB PO SCH (09:26)
[2017-10-22] MEDS: MUPIROCIN 2% OINT 22GM TUBE TOP SCH (09:26)
[2017-10-22] MEDS: ONDANSETRON 4 MG/2 ML VIAL IV PRN (09:41)
[2017-10-22] MEDS: Rifaximin 550 MG Tab PO SCH (10:13)
[2017-10-22] MEDS: PYRIDOXINE (VIT B6) 50 MG TAB PO SCH (10:13)
[2017-10-22 11:00] VITALS: O2SAT 95
[2017-10-22] MEDS ORDERED: HYDROCODONE/APAP 7.5/325 MG TAB PO PRN (12:54)
--- NOTE | 2017-10-22 16:44 | P.DS ---
Admission Date: 10/20/17 Discharge Date: 10/22/17 Primary Care Provider: None; GI-Dr. Solis Disposition: ROUTINE DISCHARGE Discharge Condition: GOOD Reason for Admission: hepatic encephalopathy Consultations: GI Nephrology Procedures: Paracentesis - Problems (1) History of esophageal varices Status: Chronic (2) Anemia Onset Date: 10/21/17 Status: Chronic Qualifiers: Anemia type: other cause Other causes of anemia: chronic disease, other Qualified Code(s): D63.8 - Anemia in other chronic diseases classified elsewhere (3) Chronic kidney disease Onset Date: 10/21/17 Status: Acute Qualifiers: Chronic kidney disease stage: stage 3 (moderate) Qualified Code(s): N18.3 - Chronic kidney disease, stage 3 (moderate) (4) Grief reaction Onset Date: 10/21/17 Status: Acute (5) Ascites Onset Date: 10/21/17 Status: Acute Qualifiers: Ascites type: due to alcoholic hepatitis Qualified Code(s): K70.11 - Alcoholic hepatitis with ascites (6) Hepatic encephalopathy Onset Date: 09/21/15 Status: Acute (7) Alcoholic cirrhosis Onset Date: 10/21/17 Status: Chronic Qualifiers: Ascites presence: with ascites Qualified Code(s): K70.31 - Alcoholic cirrhosis of liver with ascites (8) GERD (gastroesophageal reflux disease) Onset Date: 10/21/17 Status: Chronic Qualifiers: Esophagitis presence: esophagitis presence not specified Qualified Code(s) : K21.9 - Gastro-esophageal reflux disease without esophagitis (9) Cardiorenal syndrome with renal failure Onset Date: 10/21/17 Status: Acute Brief History of Present Illness: 47-year-old female presented emergency room with hepatic encephalopathy. Patient with history of alcoholic cirrhosis. The patient was admitted for further evaluation. Patient with significant ascites. Patient also in acute renal failure. Hospital Course: During the course of her stay her hepatic encephalopathy resolved. Ammonia improved. Patient has history of alcoholic cirrhosis. She has been seen by GI. Patient admits not taking her medication on a regular basis. Patient also non compliant with alcohol. In the hospital the patient required paracentesis. Cultures were negative. 7 L removed. Compliance with medication and alcohol cessation addressed in detail. At discharge patient will continue with lactulose 20 g 4 times a day and Xifaxan 550 mg twice daily. Strict compliance with medication will need to be enforced. Patient will continue with a 1500 cc per day fluid restriction and low-salt diet. Recommendation is for the patient to follow up with GI in 1 week to follow up this hospitalization and continue her care. Patient may need to see a liver specialist at a higher level of care center to further evaluate. Patient has GERD. Medications have been adjusted. She will no longer take Prilosec. Recommendation at discharge to continue with Protonix 40 mg daily. Patient with history of esophageal varices. At discharge medications have been adjusted. She will continue with nadolol 10 mg daily. Patient has anemia likely of chronic disease with iron deficiency. Patient will continue with iron 325 mg 1 pill daily. Patient will continue multiple vitamin supplements including B6 and thiamine. Recommendation is to recheck CBC in 1-2 weeks to monitor progress. Patient had low blood pressure likely related to her liver disease. At discharge Midodrine 5 mg twice daily has been added. She is to maintain blood pressures above 100 systolic. She is to monitor for orthostatics changes. Further adjustment in medication can be done by her PCP. Patient with history of alcohol abuse. Patient recently used alcohol. Alcohol cessation addressed in detail. Patient understands this. This will need to be enforced as an outpatient. At discharge she will continue with thiamine 100 mg daily and folic acid daily. Patient may continue with aspirin 81 mg daily. Patient with acute on chronic renal disease. Patient presented with cardiorenal syndrome. This has significantly improved. Adjustments in medication have been done. At discharge patient will continue with Aldactone 25 mg daily. Patient will also continue with Bumex 0.5 mg daily. Patient will continue with a 1500 cc per day fluid restriction. Recommendation is for the patient follow up with nephrology as an outpatient to further monitor. Recommendation to recheck lab-BMP in 1 week Vital Signs/Physical Exam: Temp Pulse Resp BP Pulse Ox 98.8 F 94 H 16 95/53 L 93 10/22/17 12:00 10/22/17 12:00 10/22/17 12:10/22/17 12:10/22/17 12:00 General: Alert, In no apparent distress, Oriented x3, Cooperative HEENT: Atraumatic Neck: Supple Respiratory: Clear to auscultation bilaterally, Normal air movement Cardiovascular: Normal pulses, Regular rate/rhythm Gastrointestinal: Normal bowel sounds, Ascites (But significantly improved with recent paracentesis) Musculoskeletal: No erythema, No tenderness, No warmth Integumentary: No erythema, No warmth, No cyanosis Neurological: Normal speech, Normal strength at 5/5 x4 extr, Normal tone, Normal affect Laboratory Data at Discharge: WBC 5.1 K/uL (4.3-10.9) 10/22/17 03:52 Hgb 8.5 g/dL (12.0-15.0) L 10/22/17 03:52 Hct 25.3 % (36.0-45.0) L 10/22/17 03:52 Plt Count 138 K/uL (152-406) L 10/22/17 03:52 PT 13.6 SECONDS (9.5-12.5) H 10/21/17 08:30 INR 1.15 10/21/17 08:30 APTT 34.9 SECONDS (24.3-36.9) 10/21/17 08:30 Sodium 132 mEq/L (135-145) L 10/22/17 03:52 Potassium 3.7 mEq/L (3.6-5.0) 10/22/17 03:52 BUN 24 mg/dL (6-20) H 10/22/17 03:52 Creatinine 1.13 mg/dL (0.44-1.00) H 10/22/17 03:52 Glucose 132 mg/dL (65-120) H 10/22/17 03:52 Magnesium 1.7 mg/dL (1.8-2.5) L 10/22/17 03:52 Total Bilirubin 0.9 mg/dL (0.3-1.2) 10/20/17 00:52 AST 36 IU/L (10-42) 10/20/17 00:52 ALT 19 IU/L (10-60) 10/20/17 00:52 Alkaline Phosphatase 87 IU/L (42-121) 10/20/17 00:52 Lipase 33 U/L (22-51) 10/20/17 00:52 Home Medications: Aspirin Chewable [Aspirin Chewable*] 81 mg PO DAILY 02/15/16 Folic Acid 1 tab PO DAILY 10/20/17 Multivitamin-Min/Iron/FA/Vit K [Multi-Day Plus Minerals Tablet] 1 tab PO DAILY 10/20/17 Ondansetron HCl 1 tab PO Q12HP 10/20/17 Pyridoxine HCl [Vitamin B-6] 1 tab PO DAILY 10/20/17 Rifaximin [Xifaxan] 1 tab PO BID 10/20/17 Thiamine Mononitrate [Vitamin B-1] 1 tab PO DAILY 10/20/17 Bumetanide [Bumex] 0.5 mg PO DAILY #30 tablet 10/22/17 Ferrous Sulfate [Ferrous Sulfate*] 325 mg PO DAILY tab 10/22/17 Lactulose [Cephulac*] 30 ml PO Q6H #1 bottle 10/22/17 Midodrine HCl [Proamatine*] 5 mg PO BID #60 tab 10/22/17 Mupirocin Oint [Bactroban 2% Ointment*] 1 appl TOP BID #1 tube 10/22/17 Nadolol 0.5 tab PO DAILY #30 tablet 10/22/17 Pantoprazole [Protonix Tab*] 40 mg PO DAILY #30 tab 10/22/17 Rifaximin [Xifaxan] 550 mg PO BID #60 tablet 10/22/17 Spironolactone [Aldactone] 25 mg PO DAILY #30 tab 10/22/17 New Medications: Bumetanide [Bumex] 0.5 mg PO DAILY #30 tablet Lactulose [Cephulac*] 30 ml PO Q6H #1 bottle Midodrine HCl [Proamatine*] 5 mg PO BID #60 tab Mupirocin Oint [Bactroban 2% Ointment*] 1 appl TOP BID #1 tube Nadolol 0.5 tab PO DAILY #30 tablet Pantoprazole [Protonix Tab*] 40 mg PO DAILY #30 tab Rifaximin [Xifaxan] 550 mg PO BID #60 tablet Spironolactone [Aldactone] 25 mg PO DAILY #30 tab Patient Discharge Instructions: 1. Patient will need to follow up with a PCP in the local area to establish care. 2. Patient presented with hepatic encephalopathy. Patient with history of alcoholic cirrhosis. Patient seen by GI. Patient required paracentesis. 7 L removed. Compliance with medication and alcohol cessation addressed in detail. At discharge patient will continue with lactulose 20 g 4 times a day and Xifaxan 550 mg twice daily. Strict compliance with medication will need to be enforced. Patient will continue with a 1500 cc per day fluid restriction and low-salt diet. Recommendation is for the patient to follow up with GI in 1 week to follow up this hospitalization and continue her care. Patient may need to see a liver specialist at a higher level of care center to further evaluate. 3. Patient has GERD. Medications have been adjusted. She will no longer take Prilosec. Recommendation at discharge to continue with Protonix 40 mg daily. 4. Patient with history of esophageal varices. At discharge medications have been adjusted. She will continue with nadolol 10 mg daily. 5. Patient has anemia likely of chronic disease with iron deficiency. Patient will continue with iron 325 mg 1 pill daily. Patient will continue multiple vitamin supplements including B6 and thiamine. Recommendation is to recheck CBC in 1-2 weeks to monitor progress. 6. Patient had low blood pressure likely related to her liver disease. At discharge Midodrine 5 mg twice daily has been added. She is to maintain blood pressures above 100 systolic. She is to monitor for orthostatics changes. Further adjustment in medication can be done by her PCP. 7. Patient with history of alcohol abuse. Alcohol cessation addressed in detail. Patient understands this. This will need to be enforced as an outpatient. At discharge she will continue with thiamine 100 mg daily and folic acid daily. 8. Patient may continue with aspirin 81 mg daily. 9. Patient with acute on chronic renal disease. Patient with cardial renal syndrome. Overall stable. Adjustments in medication have been done. At discharge patient will continue with Aldactone 25 mg daily. Patient will also continue with Bumex 0.5 mg daily. Patient will continue with a 1500 cc per day fluid restriction. Recommendation is for the patient follow up with nephrology as an outpatient to further monitor. Recommendation to recheck lab-BMP in 1 week Diet: AHA Activity: Fall precautions Time spent managing pt's care (in minutes): 55
[2017-10-22 17:52] VITALS: BP 99/53; TEMP 98.3
--- NOTE | 2017-10-23 00:55 | PN ---
Date of Progress Note: 10/22/2017 Subjective: The patient doing well. The patient was admitted with acute kidney injury secondary to hepatorenal and anasarca, status post paracentesis. Objective: Vital Signs: Blood pressure of 99/53, pulse of 87. Chest: Clear to auscultation. Heart: S1, S2. Regular. Abdomen: Ascites. Extremities: Plus edema. Laboratory Data: H and H 8.5/25.3. Sodium 132, potassium 3.7, bicarb 19, BUN 24, creatinine 1.1, ca lcium 8.1, magnesium 1.7. Assessment And Plan: 1.Acute kidney injury secondary to hepatorenal, recovered, back to baseline. Resume the patient on her Bumex and Aldactone. The patient cleared from the renal standpoint for discharge. 2.Hypertension. Continue diuresis. 3.Hypertension, controlled, optimal. We will utilize the blood pressure for more diuresis. 4.Anemia, stable. Follow up with GI. 5.Cirrhosis, p.r.n. paracentesis. We will resume diuresis. 6.Hypokalemia, resume Aldactone. JESICA/HILARIO Voice ID: [id number] Report ID: [id number]
--- NOTE | 2017-11-07 21:42 | CON ---
Date of Consultation: 10/20/2017 Consultation note was dictated on October 20, , dictation #[id number]. DICTATION ENDS HERE. FÁTIMA/HILARIO Voice ID: [id number] Report ID: [id number]
== END 2017-10-22 16:37 | disposition home or self-care (01) | DRG 433 ==
LOC: ER 00:12 → ERHOLD 02:46 → 4TH 03:26 → 3RD-ICU 23:54 → 4TH 10-21 22:43
PROVIDERS: ADMIT Hospitalist; ATTEND Hospitalist
DX: E87.6 Hypokalemia; F43.20 Adjustment disorder, unspecified; F17.200 Nicotine dependence, unspecified, uncomplicated; N18.4 Chronic kidney disease, stage 4 (severe); D64.9 Anemia, unspecified; K70.11 Alcoholic hepatitis with ascites; N17.9 Acute kidney failure, unspecified; K21.9 Gastro-esophageal reflux disease without esophagitis; K72.90 Hepatic failure, unspecified without coma; K70.31 Alcoholic cirrhosis of liver with ascites
CPT/HCPCS: 36415; 49083; 74176; 76377; 80048; 80076; 81003; 81015; 82140; 82805; 83690; 83735; 85025; 85610; 85730; 87070; 87205; 89050; 97163; 99285; J2270; J2354; J2405; J3475; J7030; P9047

== ENCOUNTER 2017-10-28 09:20 | Day surgery (SDC) | payer MEDICAID ==
[2017-10-28 10:07] VITALS: BMI 23.6
[2017-10-28] MEDS ORDERED: ALBUMIN HUMAN 25% 100 ML IV SCH (11:30)
--- NOTE | 2017-10-28 12:13 | RAD REPORT ---
EXAM DESCRIPTION: US - Paracentesis Proc Guidance - 10/28/2017 11:13 am CLINICAL HISTORY: Ascites COMPARISON: None. TECHNIQUE: The patient presents for ultrasound-guided paracentesis. The procedure, risks and alterna tives were discussed with the patient in detail. Oral and written consent were obtained. Time out pr ocedure was performed. The patient had no contraindicated allergy or medication history. PT/PTT/INR values were within acceptable limits. Patient is on daily 81 milligram aspirin therapy. She indicates that she has been on this for a long duration and multiple preceding paracentesis procedures perform ed locally and in [place] for performed wall on aspirin. Preliminary sonographic evaluation identified a right lower quadrant access site. The skin and deepe r tissues were anesthetized with 1 percent lidocaine. Under direct sonographic visualization, a para centesis catheter was advanced into the peritoneal cavity. Intraperitoneal placement was confirmed. A pproximately 20 mL of ascites retained for requested laboratory studies. A high-volume paracentesis p rocedure was then initiated with approximately 10 liters of ascites removed. At the conclusion of the procedure, catheter was withdrawn and a bandage placed at the puncture site. Postprocedure care and precaution instructions were given to the patient. Patient was transferred back to the same day surg [facility] area for pending albumin infusion. IMPRESSION: Ultrasound-guided paracentesis as detailed. Approximately 10 liters of ascites was remov ed. Small quantity of ascites retained for laboratory studies.
[2017-10-28 13:09] VITALS: BP 90/56; TEMP 98.2; O2SAT 99
[2017-10-28 13:59] LABS: Body Fluid WBC 40 /mm^3
[2017-10-28 14:09] LABS: Appearance CLEAR (CLEAR); Body Fluid Source PERITONEAL; Color of fluid Colorless (COLORLESS)
== END 2017-10-28 12:20 | disposition home or self-care (01) ==
LOC: DS 09:20
PROVIDERS: ATTEND Internal Medicine Gastroenterology
PROC: 0W9G3ZX Drainage of Peritoneal Cavity, Percutaneous Approach, Diagnostic (ICD-10-PCS; principal; 2017-10-28)
PROC: BW40ZZZ Ultrasonography of Abdomen (ICD-10-PCS; 2017-10-28)
DX: R18.8 Other ascites (principal); R17 Unspecified jaundice; R11.2 Nausea with vomiting, unspecified; R10.33 Periumbilical pain
CPT/HCPCS: 36415; 49083; 87070; 89050; 96365; P9047

== ENCOUNTER 2017-11-07 09:55 | Day surgery (SDC) | payer MEDICAID ==
[2017-11-07 10:45] VITALS: BMI 25.2
[2017-11-07] MEDS ORDERED: ALBUMIN HUMAN 25% 100 ML IV SCH (11:00)
--- NOTE | 2017-11-07 13:00 | RAD REPORT ---
EXAM DESCRIPTION: US - Paracentesis Proc Guidance - 11/07/2017 11:09 am CLINICAL HISTORY: Liver disease with ascites FINDINGS: The risks, benefits and alternatives to the procedure were explained to the patient and in formed consent obtained. The skin and subcutaneous tissues were anesthetized with Lidocaine. Under sonographic guidance an 8 F rench catheter was placed into the right lower quadrant. 10.5 liters liters of yellow fluid was remov ed and sent to the lab. The patient was administered 75 grams of albumin after the procedure. The patient experienced no immediate complication. IMPRESSION: Paracentesis
[2017-11-07 13:28] VITALS: O2SAT 100
[2017-11-07 13:30] VITALS: BP 83/52; TEMP 98.6
[2017-11-07 15:24] LABS: Appearance CLEAR (CLEAR); Body Fluid Source PERITONEAL; Color of fluid Colorless (COLORLESS)
[2017-11-07 15:25] LABS: Body Fluid WBC 1 /mm^3
== END 2017-11-07 13:18 | disposition home or self-care (01) ==
LOC: DS 09:55
PROVIDERS: ATTEND Internal Medicine Gastroenterology
PROC: 0W9G3ZX Drainage of Peritoneal Cavity, Percutaneous Approach, Diagnostic (ICD-10-PCS; principal; 2017-11-07)
PROC: BW40ZZZ Ultrasonography of Abdomen (ICD-10-PCS; 2017-11-07)
DX: K70.31 Alcoholic cirrhosis of liver with ascites (principal); R17 Unspecified jaundice; R16.0 Hepatomegaly, not elsewhere classified
CPT/HCPCS: 36415; 49083; 87070; 89050; 96365; P9047

== ENCOUNTER → 2017-11-19 | Day surgery (SDC) | payer MEDICAID ==
[~2017-11-19] MED LIST: ALBUMIN HUMAN 25% 100 ML IV SCH
[2017-11-19 09:23] VITALS: TEMP 98.3; O2SAT 99; BMI 23.6
--- NOTE | 2017-11-19 11:29 | RAD REPORT ---
EXAM DESCRIPTION: US - Paracentesis Proc Guidance - 11/19/2017 9:36 am CLINICAL HISTORY: Ascites. COMPARISON: Multiple prior paracentesis procedures. TECHNIQUE: The patient presents for ultrasound-guided paracentesis. The procedure, risks and altern atives were discussed with the patient in detail. Oral and written consent were obtained. Time out p rocedure was performed. The patient had no contraindicated allergy or medication history. PT/INR reji ues within acceptable limits. Preliminary sonographic evaluation identified a right lower quadrant access site. The skin and deepe r tissues were anesthetized with 1 percent lidocaine. Under direct sonographic visualization, a para centesis catheter was advanced into the peritoneal cavity. Intraperitoneal placement confirmed and hi gh volume drainage was initiated. A total of 10 liters was removed. At the conclusion of the procedur e, catheter was withdrawn and a bandage placed at the puncture site. Post-procedure care and precaut ion instructions were given to the patient. At the conclusion of the procedure the patient was transf erred back to the same day surgical area for albumin infusion as requested by the referring physician . IMPRESSION: Ultrasound-guided paracentesis as detailed.
[2017-11-19 11:49] VITALS: BP 89/59
== END | disposition home or self-care (01) ==
LOC: DS 08:39
PROVIDERS: ATTEND Internal Medicine Gastroenterology
PROC: 0W9G3ZX Drainage of Peritoneal Cavity, Percutaneous Approach, Diagnostic (ICD-10-PCS; principal; 2017-11-19)
PROC: BW40ZZZ Ultrasonography of Abdomen (ICD-10-PCS; 2017-11-19)
DX: K70.31 Alcoholic cirrhosis of liver with ascites (principal)
CPT/HCPCS: 49083; 96365; P9047

== ENCOUNTER 2017-11-29 09:04 | Day surgery (SDC) | payer MEDICAID ==
--- OUTSIDE RECORDS SUMMARY | 2017-11-29 09:06 | XMS REPORT ---
:1970 [facility] Address [address] [place] [address] Dr. Lockhart [address] [place] [id number] Care Team Providers Name Role Phone JUANA NEL NAVARRO Unavailable Unavailable Problems This patient has no known problems. Allergies, Adverse Reactions, Alerts This patient has no known allergies or adverse reactions. Medications This patient has no known medications. Results Test Description Test Time Test Comments Text Results Atomic Results Result Comments FERRITIN 2017-11-27 15:34:00 Test Item Value Reference Range Comments FERRITIN (BEAKER) (test kvgj=197) 237 ng/mL 5-275 HEPATITIS B SURFACE [id number] 14:54:00 Test Item Value Reference Range Comments HEPATITIS B SURFACE ANTIBODY (BEAKER) (test < mIU/mL <8.0 nunt=044) HEPATITIS B SURFACE [id number] 14:49:00 Test Item Value Reference Range Comments HEPATITIS B SURFACE ANTIGEN (2) (BEAKER) (test Nonreactive Nonreactive eidg=5468) HEPATITIS C [id number] 14:49:00 Test Item Value Reference Range Comments HEPATITIS C ANTIBODY (BEAKER) (test rokj=007) Nonreactive Nonreactive ALPHA FETOPROTEIN (AFP), TUMOR [id number] 14:48:00 Test Item Value Reference Range Comments ALPHA-FETOPROTEIN (BEAKER) (test gcln=8278) 4.9 ng/mL <10.0 HEPATITIS B CORE ANTIBODY, [id number] 14:48:00 Test Item Value Reference Range Comments HEPATITIS B CORE TOTAL ANTIBODY (BEAKER) (test Nonreactive Nonreactive kagq=061) HEPATITIS A ANTIBODY, [id number] 14:48:00 Test Item Value Reference Range Comments HEPATITIS A IGG ANTIBODY (BEAKER) (test Nonreactive Nonreactive ygse=1338) CBC W/PLT COUNT & AUTO [id number] 14:30:00 Test Item Value Reference Range Comments WHITE BLOOD CELL COUNT (BEAKER) (test prmg=112) 5.2 K/ L 3.5-10.5 RED BLOOD CELL COUNT (BEAKER) (test aqtv=509) 2.96 M/ L 3.93-5.22 HEMOGLOBIN (BEAKER) (test ksnx=219) 9.7 GM/DL 11.2-15.7 HEMATOCRIT (BEAKER) (test rzul=003) 31.0 % 34.1-44.9 MEAN CORPUSCULAR VOLUME (BEAKER) (test moqz=593) 104.7 fL 79.4-94.8 MEAN CORPUSCULAR HEMOGLOBIN (BEAKER) (test 32.8 pg 25.6-32.2 gjex=841) MEAN CORPUSCULAR HEMOGLOBIN CONC (BEAKER) (test 31.3 GM/DL 32.2-35.5 agft=354) RED CELL DISTRIBUTION WIDTH (BEAKER) (test 17.8 % 11.7-14.4 uxht=046) PLATELET COUNT (BEAKER) (test brbf=283) 92 K/CU MM 150-450 MEAN PLATELET VOLUME (BEAKER) (test dviq=053) 10.3 fL 9.4-12.3 NUCLEATED RED BLOOD CELLS (BEAKER) (test 0 /100 WBC 0-0 pmkc=109) NEUTROPHILS RELATIVE PERCENT (BEAKER) (test 81 % mtlj=363) LYMPHOCYTES RELATIVE PERCENT (BEAKER) (test 6 % oslg=907) MONOCYTES RELATIVE PERCENT (BEAKER) (test 9 % ngzn=649) EOSINOPHILS RELATIVE PERCENT (BEAKER) (test 3 % vfei=958) BASOPHILS RELATIVE PERCENT (BEAKER) (test 1 % wjqe=731) NEUTROPHILS ABSOLUTE COUNT (BEAKER) (test 4.23 K/ L 1.56-6.13 ykvb=832) LYMPHOCYTES ABSOLUTE COUNT (BEAKER) (test 0.29 K/ L 1.18-3.74 wveu=782) MONOCYTES ABSOLUTE COUNT (BEAKER) (test szyh=891) 0.49 K/ L 0.24-0.36 EOSINOPHILS ABSOLUTE COUNT (BEAKER) (test 0.14 K/ L 0.04-0.36 chpz=432) BASOPHILS ABSOLUTE COUNT (BEAKER) (test nwnr=672) 0.06 K/ L 0.01-0.08 IMMATURE GRANULOCYTES-RELATIVE PERCENT (BEAKER) 0 % 0-1 (test jxgo=7143) COMPREHENSIVE METABOLIC [id number] 14:28:00 Test Item Value Reference Range Comments TOTAL PROTEIN (BEAKER) 7.6 gm/dL 6.0-8.3 (test rvhx=934) ALBUMIN (BEAKER) (test 3.6 g/dL 3.5-5.0 jlxx=3676) ALKALINE PHOSPHATASE 144 U/L 40-150 (BEAKER) (test onen=469) BILIRUBIN TOTAL (BEAKER) 1.1 mg/dL 0.2-1.2 (test cqwt=444) SODIUM (BEAKER) (test 135 meq/L 136-145 vcnf=482) POTASSIUM (BEAKER) (test 3.6 meq/L 3.5-5.1 eisq=983) CHLORIDE (BEAKER) (test 103 meq/L 98-107 fzqr=680) CO2 (BEAKER) (test 22 meq/L 22-29 atwj=452) BLOOD UREA NITROGEN 16 mg/dL 7-21 (BEAKER) (test gerh=092) CREATININE (BEAKER) (test 1.82 mg/dL 0.57-1.25 zkab=945) GLUCOSE RANDOM (BEAKER) 102 mg/dL 70-105 (test zait=375) CALCIUM (BEAKER) (test 9.1 mg/dL 8.4-10.2 fabm=260) AST (SGOT) (BEAKER) (test 39 U/L 5-34 heob=931) ALT (SGPT) (BEAKER) (test 14 U/L 6-55 saby=787) EGFR (BEAKER) (test 30 mL/min/1.73 sq m ESTIMATED GFR IS NOT pmuy=1776) ACCURATE CREATININE CLEARANCE IN PREDICTING GLOMERULAR FILTRATION RATE. ESTIMATED GFR IS NOT APPLICABLE FOR DIALYSIS PATIENTS. BILIRUBIN, [id number] 14:28:00 Test Item Value Reference Range Comments BILIRUBIN DIRECT (BEAKER) (test thvc=977) 0.6 mg/dL 0.1-0.5 IRON, TIBC, % SAT. (WITHOUT FERRITIN)2017-11-27 14:26:00 Test Item Value Reference Range Comments IRON (BEAKER) (test wskc=593) 37 ug/dL 40-160 TOTAL IRON BINDING CAPACITY (BEAKER) (test 219 ug/dL 250-450 hhid=338) IRON % SATURATION (2) (BEAKER) (test hmet=6637) 17 % 20-55 [id number] 14:25:00 Test Item Value Reference Range Comments ALPHA-1 ANTITRYPSIN (BEAKER) (test uvwi=504) 151.80 mg/dL 90.00-200.00 PROTHROMBIN [id number] 14:03:00 Test Item Value Reference Range Comments PROTIME (BEAKER) (test tlew=711) 17.2 seconds 11.7-14.7 INR (BEAKER) (test rxss=227) 1.4 <=5.9 RECOMMENDED COUMADIN/WARFARIN INR THERAPY RANGESSTANDARD DOSE: 2.0 - 3.0 Includes: PROPHYLAXIS forvenous thrombosis, systemic embolization; TREATMENT for venous thrombosis and/or pulmonary embolus.HIGH RISK: Target INR is 2.5-3.5 for patients with mechanical heart valves.
--- OUTSIDE RECORDS SUMMARY | 2017-11-29 09:06 | XMS REPORT | Clinical Summary ---
:1970 Author Organization [facility] Address [address] [place] [address] Phone Care Team Providers Name Role Phone Unavailable Primary Care Provider Unavailable Allergies No Known Allergies Current Medications Prescription Sig. Disp. Refills Start Date End Date Status omeprazole (PRILOSEC) TAKE ONE 2 09/09/2017 Active 40 MG capsule CAPSULE BY MOUTH EVERY DAY 30 MINUTES BEFORE FIRST MEALS midodrine (PROAMATINE) Take 5 mg by 0 10/22/2017 Active 5 MG tablet mouth 2 (two) times daily. mupirocin (BACTROBAN) APPLY 2 TIMES 0 10/22/2017 Active 2 % ointment A DAY pantoprazole Take 40 mg by 0 10/22/2017 Active (PROTONIX) 40 MG mouth daily. tablet ondansetron (ZOFRAN) 4 TK 1 T PO Q 8 0 11/05/2017 Active MG tablet H PRN spironolactone Take 25 mg by 0 10/22/2017 Active (ALDACTONE) 25 MG mouth daily. tablet traMADol (ULTRAM) 50 0 10/30/2017 Active mg tablet sodium bicarbonate 325 Take 325 mg by Active MG tablet mouth 4 (four) times daily. potassium chloride Take 20 mEq by Active (KLOR-CON) 20 mEq mouth daily. packet aspirin 81 MG chewable Take 81 mg by Active tablet mouth daily. nadolol (CORGARD) 20 Take 20 mg by Active MG tablet mouth daily. ibuprofen Take 200 mg by 11/27/2017 Discontinued (ADVIL,MOTRIN) 200 MG mouth every 6 tablet (six) hours as needed for Pain. UNKNOWN Water Pill 11/27/2017 Discontinued Active Problems Problem Noted Date Ascites 11/27/2017 Last Assessment & Plan: Last paracentesis on 10/28/17. Patient has required paracentesis every 1 to 1.5 weeks. Alcoholic cirrhosis of liver with ascites (HCC) 11/27/2017 Last Assessment & Plan: Cirrhosis based on labs, clinical symptoms, and imaging. Screening for malignant neoplasm 11/27/2017 Last Assessment & Plan: Cirrhosis, regardless of etiology, is a risk factor for development of hepatocellular carcinoma. The annual incidence of HCC varies from 1.5-7%. Thus, we recommend surveillance for HCC be performed usin g contrast MRI or CT imaging and alphafetoprotein every 6 months. Immunity status testing 11/27/2017 Last Assessment & Plan: All patients with chronic liver disease, regardless of etiology, should be immunized to prevent hepatitis A and hepatitis B if they are not already immune. We will test for immunity to both viruses - [facility]. Portal hypertension (HCC) 11/27/2017 Last Assessment & Plan: Portal hypertension is evidenced by gastric and esophageal varices seen on EGD and CT scan 10/21/17 and splenomegaly. Encounters Date Type Specialty Care Team Description 11/28/2017 Abstract Transplant Hepatology Tim Riley MD 11/27/2017 Office Visit Hepatology Ugo Doss Alcoholic cirrhosis of MD Ant liver with ascites (HCC) (Primary Dx);Other ascites;Screening for malignant neoplasm;Immunity status testing;Portal hypertension (HCC) after 11/28/2016 Social History Tobacco Use Types Packs/Day Years Used Date Current Every Day Smoker Cigarettes 1 12 Alcohol Use Drinks/Week oz/Week Comments Yes 14 Glasses of wine 8.4 pt states she usually drinks a 6 pack daily Sex Assigned at Date Recorded Not on file Last Filed Vital Signs Vital Sign Reading Time Taken Blood Pressure 109/73 11/27/2017 11:48 AM CDT Pulse 99 11/27/2017 11:48 AM CDT Temperature 36.9 C (98.4 F) 11/27/2017 11:48 AM CDT Respiratory Rate 17 11/27/2017 11:48 AM CDT Oxygen Saturation 99% 11/27/2017 11:48 AM CDT Inhaled Oxygen Concentration - - Weight 65.8 kg (145 lb 1.6 oz) 11/27/2017 11:48 AM CDT Height 167.6 cm (5' 6") 11/27/2017 11:48 AM CDT Body Mass Index 23.42 11/27/2017 11:48 AM CDT Plan of Treatment Date Type Specialty Care Team Description 12/13/2017 Procedure visit Radiology Ugo Doss MD [address] [phone] 01/02/2018 Office Visit Hepatology Ugo Doss MD [address] [id number] Health Maintenance Due Date Last Done Comments INFLUENZA VACCINE 05/05/2018 Results Hepatitis A antibody, IgG (11/27/2017 1:34 PM) Component Value Ref Range Hep A IgG Nonreactive Nonreactive Specimen Performing Laboratory Blood [address] [address] Iron, TIBC, % sat. (without ferritin) (11/27/2017 1:34 PM) Component Value Ref Range Iron 37 (L) 40 - 160 ug/dL TIBC 219 (L) 250 - 450 ug/dL Iron % Saturation 17 (L) 20 - 55 % Specimen Performing Laboratory Blood [address] [address] CBC with platelet count + automated diff (11/27/2017 1:34 PM) Component Value Ref Range WBC 5.2 3.5 - 10.5 K/L RBC 2.96 (L) 3.93 - 5.22 M/L Hemoglobin 9.7 (L) 11.2 - 15.7 GM/DL Hematocrit 31.0 (L) 34.1 - 44.9 % MCV 104.7 (H) 79.4 - 94.8 fL MCH 32.8 (H) 25.6 - 32.2 pg MCHC 31.3 (L) 32.2 - 35.5 GM/DL RDW 17.8 (H) 11.7 - 14.4 % Platelets 92 (L) 150 - 450 K/CU MM MPV 10.3 9.4 - 12.3 fL nRBC 0 0 - 0 /100 WBC % Neutros 81 % % Lymphs 6 % % Monos 9 % % Eos 3 % % Baso 1 % # Neutros 4.23 1.56 - 6.13 K/L # Lymphs 0.29 (L) 1.18 - 3.74 K/L # Monos 0.49 (H) 0.24 - 0.36 K/L # Eos 0.14 0.04 - 0.36 K/L # Baso 0.06 0.01 - 0.08 K/L Immature Granulocytes-Relative 0 0 - 1 % Specimen Performing Laboratory [address] [address] Hepatitis C antibody (11/27/2017 1:34 PM) Component Value Ref Range Hepatitis C Ab Nonreactive Nonreactive Specimen Performing Laboratory [address] [address] [id number]-7-Gwcosemdvta (11/27/2017 1:34 PM) Component Value Ref Range A-1 Antitrypsin 151.80 90.00 - 200.00 mg/dL Specimen Performing Laboratory [address] [address] Alpha fetoprotein (AFP), tumor marker (11/27/2017 1:34 PM) Component Value Ref Range Alpha-Fetoprotein 4.9 <10.0 ng/mL Specimen Performing Laboratory [address] [address] Hepatitis B core antibody, total (11/27/2017 1:34 PM) Component Value Ref Range Hep B Core Total Ab Nonreactive Nonreactive Specimen Performing Laboratory [address] [address] Hepatitis B surface antibody (11/27/2017 1:34 PM) Component Value Ref Range Hep B S Ab <8.0 <8.0 mIU/mL Specimen Performing Laboratory [address] [address] Hepatitis B surface antigen (11/27/2017 1:34 PM) Component Value Ref Range hepatitis B Surface Ag Nonreactive Nonreactive Specimen Performing Laboratory [address] [address] Pro-time/INR (11/27/2017 1:34 PM) Component Value Ref Range Protime 17.2 (H) 11.7 - 14.7 seconds INR 1.4 <=5.9 Specimen Performing Laboratory Blood [facility] [address] [address] Narrative RECOMMENDED COUMADIN/WARFARIN INR THERAPY RANGES STANDARD DOSE: 2.0 - 3.0 Includes: PROPHYLAXIS for venous thrombosis, systemic embolization; TREATMENT for venous thrombosis and/or pulmonary embolus. HIGH RISK: Target INR is 2.5-3.5 for patients with mechanical heart valves. CBC with platelet count + automated diff (11/27/2017 1:34 PM) Specimen Performing Laboratory Blood Narrative The following orders were created for panel order CBC with platelet count + automated diff. Procedure Abnormality Status --------- ------ CBC with platelet count ...[[id number]]AbnormalFinal result Please view results for these tests on the individual orders. Ferritin (11/27/2017 1:34 PM) Component Value Ref Range Ferritin 237 5 - 275 ng/mL Specimen Performing Laboratory Blood [address] [address] Bilirubin, direct (11/27/2017 1:34 PM) Component Value Ref Range Bilirubin, Direct 0.6 (H) 0.1 - 0.5 mg/dL Specimen Performing Laboratory Blood [address] [address] Comprehensive Metabolic Panel (11/27/2017 1:34 PM) Component Value Ref Range Protein, Total 7.6 6.0 - 8.3 gm/dL Albumin 3.6 3.5 - 5.0 g/dL Alkaline Phosphatase 144 40 - 150 U/L Total Bilirubin 1.1 0.2 - 1.2 mg/dL Sodium 135 (L) 136 - 145 meq/L Potassium 3.6 3.5 - 5.1 meq/L Chloride 103 98 - 107 meq/L CO2 22 22 - 29 meq/L BUN 16 7 - 21 mg/dL Creatinine 1.82 (H) 0.57 - 1.25 mg/dL Glucose 102 70 - 105 mg/dL Calcium 9.1 8.4 - 10.2 mg/dL AST 39 (H) 5 - 34 U/L ALT 14 6 - 55 U/L EGFR 30Comment: ESTIMATED GFR IS NOT ACCURATE mL/min/1.73 sq m CREATININE CLEARANCE IN PREDICTING GLOMERULAR FILTRATION RATE. ESTIMATED GFR IS NOT APPLICABLE FOR DIALYSIS PATIENTS. Specimen Performing Laboratory Blood [facility] [address] [address] after 11/28/2016
[2017-11-29 09:28] VITALS: TEMP 97.6
[2017-11-29 09:29] VITALS: BMI 23.6
[2017-11-29] MEDS ORDERED: ALBUMIN HUMAN 25% 100 ML IV SCH (11:15)
[2017-11-29 12:13] VITALS: BP 104/60; O2SAT 100
--- NOTE | 2017-11-29 12:51 | RAD REPORT ---
EXAM DESCRIPTION: US - Paracentesis Proc Guidance - 11/29/2017 10:01 am CLINICAL HISTORY: Recurrent ascites COMPARISON: Multiple prior paracentesis procedures TECHNIQUE: The patient presents for ultrasound-guided paracentesis. The procedure, risks and altern atives were discussed with the patient in detail. Oral and written consent were obtained. Time out p rocedure was performed. The patient had no contraindicated allergy or medication history. Patient's PT/INR/platelet values were normal or within acceptable limits. Preliminary sonographic evaluation identified a right lower quadrant access site. The skin and deepe r tissues were anesthetized with 1 percent lidocaine. Under direct sonographic visualization, a para centesis catheter was advanced into the peritoneal cavity. Approximately 10 mL of ascites retained fo r requested laboratory studies. High-volume paracentesis was then initiated with 10 liters of ascites removed. At the conclusion of the procedure, catheter was withdrawn and a bandage placed at the [facility] site. Postprocedure care and precaution instructions were given to the patient. IMPRESSION: Ultrasound-guided paracentesis as detailed.
[2017-11-29 13:48] LABS: Appearance CLEAR (CLEAR); Body Fluid Source PERITONEAL; Color of fluid Yellow (COLORLESS)
[2017-11-29 13:49] LABS: Body Fluid WBC 62 /mm^3
== END 2017-11-29 12:12 | disposition home or self-care (01) ==
LOC: DS 09:04
PROVIDERS: ATTEND Internal Medicine Gastroenterology
PROC: 0W9G3ZX Drainage of Peritoneal Cavity, Percutaneous Approach, Diagnostic (ICD-10-PCS; principal; 2017-11-29)
PROC: BW40ZZZ Ultrasonography of Abdomen (ICD-10-PCS; 2017-11-29)
DX: K70.31 Alcoholic cirrhosis of liver with ascites (principal)
CPT/HCPCS: 36415; 49083; 87070; 89050; 96365; P9047

== ENCOUNTER 2017-12-05 05:13 | Observation (INO) | payer MEDICAID ==
--- OUTSIDE RECORDS SUMMARY | 2017-12-05 05:16 | XMS REPORT | Clinical Summary ---
:1970 Author Organization [facility] Address [address] [place] [address] Phone Care Team Providers Name Role Phone [...] test for immunity to both viruses - [facility] follow. Portal hypertension (HCC) 11/27/2017 [...] malignant neoplasm;Immunity status testing;Portal hypertension (HCC) after 12/04/2016 Social History Tobacco Use Types Packs/Day Years [...] Procedure visit Radiology Ugo Doss MD [address] [address] [phone] 01/02/2018 Office Visit Hepatology Ugo Doss MD [address] [phone] Health Maintenance Due Date Last Done Comments INFLUENZA VACCINE 05/05/2018 Results Hepatitis A antibody, IgG (11/27/2017 1:34 PM) Component Value Ref Range Hep A IgG Nonreactive Nonreactive Specimen Performing Laboratory Blood [address] [address] Mitochondrial Antibodies, M2 (11/27/2017 1:34 PM) Component Value Ref Range Mitochondria M2 Ab <20.0 See Note: U Comment: Reference Range: NEGATIVE:< OR=20.0 EQUIVOCAL: 20.1-24.9 POSITIVE:> OR=25.0 Specimen Performing Laboratory Blood [facility] [address] [address] Narrative Performing Lab E[facility] [address] [address] Lizette Cason MD, PhD, ABIMBOLA Iron, TIBC, % sat. (without ferritin) (11/27/2017 1:34 PM) Component Value Ref Range Iron 37 (L) 40 - 160 ug/dL TIBC 219 (L) 250 - 450 ug/dL Iron % Saturation 17 (L) 20 - 55 % Specimen Performing Laboratory Blood [address] [address] CBC with platelet count + automated diff [...] 0 - 1 % Specimen Performing Laboratory Blood [address] [address] Hepatitis C antibody (11/27/2017 1:34 PM) Component Value Ref Range Hepatitis C Ab Nonreactive Nonreactive Specimen Performing Laboratory Blood [address] [address] Actin (Smooth Muscle) Antibody, IgG (11/27/2017 1:34 PM) Component Value Ref Range Anti-Smooth Muscle Ab 21 (H) See Note: U Comment: Reference Range: <20 NEGATIVE > OR=20 POSITIVE Antibodies recognizing actin are the main component of smooth muscle antibodies associated with autoimmune liver disease. Actin antibodies are found in approximately 75% of patients with autoimmune hepatitis (AIH) type 1, approximately 65% of patients with autoimmune cholangitis, approximately 30% of patients with primary biliary cirrhosis, and approximately 2% of healthy people. High values are closely correlated with AIH type 1. Specimen Performing Laboratory Blood [facility] [address] [place] [address] Narrative Performing Lab EZ [facility] [address] [place] [address] Lizette Cason MD, PhD, ABIMBOLA [id number]-1-Vytjbfvtnam (11/27/2017 1:34 PM) Component Value Ref Range A-1 Antitrypsin 151.80 90.00 - 200.00 mg/dL Specimen Performing Laboratory Blood [facility] [address] LÓPEZ Titer & Pattern (11/27/2017 1:34 PM) Component Value Ref Range LÓPEZ Titer 1:40 LÓPEZ Pattern Speckled Specimen Performing Laboratory Blood [address] [address] Ceruloplasmin (11/27/2017 1:34 PM) Component Value Ref Range Ceruloplasmin 25 18 - 53 mg/dL Comment: Adults:Males: 18-36 mg/dL Females: 18-53 mg/dL Pediatrics:Males (mg/dL)Females (mg/dL) 0-30 Days 8-25 3-28 31 Days-11 Month 15-4815-43 1-3 Vraoj16-3535-33 4-6 Tnohp71-0518-27 7-9 [id number] 10-12 Linfk53-9914-84 13-15 [id number] 16-18 [id number] The pediatric ranges are derived from the following criteria: Yehuda SJ, Buck JM, Lorna J et al Pediatric reference ranges for Xgcx-1-Ggknsinrsxitg and ceruloplasmin. Clin. Chem 1997; 43:S1999 Pediatric Reference Ranges, 2nd., [place] Yehudaet al. editors. [employer], [place], [place] 1997. Specimen Performing Laboratory Blood [facility] [address] [place] [address] Narrative Performing Lab *SPL [facility], [address] [place] [address] Florencia Almanzar MD, PhD Alpha fetoprotein (AFP), tumor marker (11/27/2017 1:34 PM) Component Value Ref Range Alpha-Fetoprotein 4.9 <10.0 ng/mL Specimen Performing Laboratory Blood [address] [address] Hepatitis B core antibody, total (11/27/2017 1:34 PM) Component Value Ref Range Hep B Core Total Ab Nonreactive Nonreactive Specimen Performing Laboratory Blood [address] [address] Hepatitis B surface antibody (11/27/2017 1:34 PM) Component Value Ref Range Hep B S Ab <8.0 <8.0 mIU/mL Specimen Performing Laboratory Blood [address] [address] Hepatitis B surface antigen (11/27/2017 1:34 PM) Component Value Ref Range hepatitis B Surface Ag Nonreactive Nonreactive Specimen Performing Laboratory [address] [address] Pro-time/INR (11/27/2017 1:34 PM) Component Value Ref Range Protime 17.2 (H) 11.7 - 14.7 seconds INR 1.4 <=5.9 Specimen Performing Laboratory [address] [address] Narrative RECOMMENDED COUMADIN/WARFARIN INR THERAPY RANGES STANDARD [...] Status --------- ------ CBC with platelet count ...[[id number]]AbnormalFinal result Please view results for these tests on the individual orders. Anti-Nuclear Antibody (LÓPEZ) (11/27/2017 1:34 PM) Component Value Ref Range LÓPEZ Positive (A) Negative Specimen Performing Laboratory Blood [address] [address] Ferritin (11/27/2017 1:34 PM) Component Value Ref Range Ferritin 237 5 - 275 ng/mL Specimen Performing Laboratory [address] [address] Bilirubin, direct (11/27/2017 1:34 PM) Component Value Ref Range Bilirubin, Direct 0.6 (H) 0.1 - 0.5 mg/dL Specimen Performing Laboratory [address] [address] Comprehensive Metabolic Panel (11/27/2017 1:34 PM) Component [...] DIALYSIS PATIENTS. Specimen Performing Laboratory Blood [facility] [address] [place] [address] after 12/04/2016
--- OUTSIDE RECORDS SUMMARY | 2017-12-05 05:16 | XMS REPORT ---
:1970 [facility] [place] [address] Care Team Providers Name Role Phone RAMON ARIAS Unavailable Unavailable Problems This patient has no known problems. Allergies, Adverse Reactions, Alerts This patient has no known allergies or adverse reactions. Medications This patient has no known medications. Results Test Description Test Time Test Comments Text Results Atomic Results Result Comments ANTI-NUCLEAR ANTIBODY (LÓPEZ) 2017-11-29 09:50:00 Test Item Value Reference Range Comments ANTI-NUCLEAR ANTIBODY (LÓPEZ) (BEAKER) (test myty=564) Positive Negative LÓPEZ TITER AND [id number] 09:50:00 Test Item Value Reference Range Comments LÓPEZ TITER (BEAKER) (test twqp=0119) :40 LÓPEZ PATTERN (BEAKER) (test fxcs=0380) Speckled [id number] 15:34:00 Test Item Value Reference Range Comments FERRITIN (BEAKER) (test bqla=764) 237 ng/mL 5-275 HEPATITIS B SURFACE [id number] 14:54:00 Test Item Value Reference Range Comments HEPATITIS B SURFACE ANTIBODY (BEAKER) (test < mIU/mL <8.0 qbac=731) HEPATITIS B SURFACE [id number] 14:49:00 Test Item Value Reference Range Comments HEPATITIS B SURFACE ANTIGEN (2) (BEAKER) (test Nonreactive Nonreactive ziis=6490) HEPATITIS C [id number] 14:49:00 Test Item Value Reference Range Comments HEPATITIS C ANTIBODY (BEAKER) (test zadq=930) Nonreactive Nonreactive ALPHA FETOPROTEIN (AFP), TUMOR [id number] 14:48:00 Test Item Value Reference Range Comments ALPHA-FETOPROTEIN (BEAKER) (test cvkn=7552) 4.9 ng/mL <10.0 HEPATITIS B CORE ANTIBODY, [id number] 14:48:00 Test Item Value Reference Range Comments HEPATITIS B CORE TOTAL ANTIBODY (BEAKER) (test Nonreactive Nonreactive thal=452) HEPATITIS A ANTIBODY, [id number] 14:48:00 Test Item Value Reference Range Comments HEPATITIS A IGG ANTIBODY (BEAKER) (test Nonreactive Nonreactive cvbq=0686) CBC W/PLT COUNT & AUTO [id number] 14:30:00 Test Item Value Reference Range Comments WHITE BLOOD CELL COUNT (BEAKER) (test pyyf=481) 5.2 K/ L 3.5-10.5 RED BLOOD CELL COUNT (BEAKER) (test rnni=183) 2.96 M/ L 3.93-5.22 HEMOGLOBIN (BEAKER) (test aapi=245) 9.7 GM/DL 11.2-15.7 HEMATOCRIT (BEAKER) (test wnbr=291) 31.0 % 34.1-44.9 MEAN CORPUSCULAR VOLUME (BEAKER) (test wncj=316) 104.7 fL 79.4-94.8 MEAN CORPUSCULAR HEMOGLOBIN (BEAKER) (test 32.8 pg 25.6-32.2 tcfb=072) MEAN CORPUSCULAR HEMOGLOBIN CONC (BEAKER) (test 31.3 GM/DL 32.2-35.5 qzbe=809) RED CELL DISTRIBUTION WIDTH (BEAKER) (test 17.8 % 11.7-14.4 ubgj=029) PLATELET COUNT (BEAKER) (test pifb=636) 92 K/CU MM 150-450 MEAN PLATELET VOLUME (BEAKER) (test zgzv=917) 10.3 fL 9.4-12.3 NUCLEATED RED BLOOD CELLS (BEAKER) (test 0 /100 WBC 0-0 zyii=932) NEUTROPHILS RELATIVE PERCENT (BEAKER) (test 81 % rbqc=734) LYMPHOCYTES RELATIVE PERCENT (BEAKER) (test 6 % ksjt=321) MONOCYTES RELATIVE PERCENT (BEAKER) (test 9 % owbq=691) EOSINOPHILS RELATIVE PERCENT (BEAKER) (test 3 % amhs=151) BASOPHILS RELATIVE PERCENT (BEAKER) (test 1 % cfwf=679) NEUTROPHILS ABSOLUTE COUNT (BEAKER) (test 4.23 K/ L 1.56-6.13 mwat=115) LYMPHOCYTES ABSOLUTE COUNT (BEAKER) (test 0.29 K/ L 1.18-3.74 adob=369) MONOCYTES ABSOLUTE COUNT (BEAKER) (test slfj=770) 0.49 K/ L 0.24-0.36 EOSINOPHILS ABSOLUTE COUNT (BEAKER) (test 0.14 K/ L 0.04-0.36 frer=905) BASOPHILS ABSOLUTE COUNT (BEAKER) (test otnk=126) 0.06 K/ L 0.01-0.08 IMMATURE GRANULOCYTES-RELATIVE PERCENT (BEAKER) 0 % 0-1 (test etxs=4140) COMPREHENSIVE METABOLIC [id number] 14:28:00 Test Item Value Reference Range Comments TOTAL PROTEIN (BEAKER) 7.6 gm/dL 6.0-8.3 (test yjhe=712) ALBUMIN (BEAKER) (test 3.6 g/dL 3.5-5.0 gyzh=8857) ALKALINE PHOSPHATASE 144 U/L 40-150 (BEAKER) (test ztbk=037) BILIRUBIN TOTAL (BEAKER) 1.1 mg/dL 0.2-1.2 (test javo=045) SODIUM (BEAKER) (test 135 meq/L 136-145 dybe=505) POTASSIUM (BEAKER) (test 3.6 meq/L 3.5-5.1 ckls=200) CHLORIDE (BEAKER) (test 103 meq/L 98-107 uzpd=794) CO2 (BEAKER) (test 22 meq/L 22-29 wuck=465) BLOOD UREA NITROGEN 16 mg/dL 7-21 (BEAKER) (test qqai=135) CREATININE (BEAKER) (test 1.82 mg/dL 0.57-1.25 owqx=278) GLUCOSE RANDOM (BEAKER) 102 mg/dL 70-105 (test fwdd=629) CALCIUM (BEAKER) (test 9.1 mg/dL 8.4-10.2 cuvs=457) AST (SGOT) (BEAKER) (test 39 U/L 5-34 legw=978) ALT (SGPT) (BEAKER) (test 14 U/L 6-55 pldx=711) EGFR (BEAKER) (test 30 mL/min/1.73 sq m ESTIMATED GFR IS NOT utpa=3236) ACCURATE CREATININE CLEARANCE IN PREDICTING GLOMERULAR FILTRATION RATE. ESTIMATED GFR IS NOT APPLICABLE FOR DIALYSIS PATIENTS. BILIRUBIN, [id number] 14:28:00 Test Item Value Reference Range Comments BILIRUBIN DIRECT (BEAKER) (test bcie=978) 0.6 mg/dL 0.1-0.5 IRON, TIBC, % SAT. (WITHOUT FERRITIN)2017-11-27 14:26:00 Test Item Value Reference Range Comments IRON (BEAKER) (test isjv=753) 37 ug/dL 40-160 TOTAL IRON BINDING CAPACITY (BEAKER) (test 219 ug/dL 250-450 mtdo=349) IRON % SATURATION (2) (BEAKER) (test tycy=7426) 17 % 20-55 [id number] 14:25:00 Test Item Value Reference Range Comments ALPHA-1 ANTITRYPSIN (BEAKER) (test spfh=360) 151.80 mg/dL 90.00-200.00 PROTHROMBIN [id number] 14:03:00 Test Item Value Reference Range Comments PROTIME (BEAKER) (test ylme=706) 17.2 seconds 11.7-14.7 INR (BEAKER) (test rpsd=410) 1.4 <=5.9 RECOMMENDED COUMADIN/WARFARIN INR THERAPY RANGESSTANDARD DOSE: 2.0 - 3.0 Includes: PROPHYLAXIS forvenous thrombosis, systemic embolization; TREATMENT for venous thrombosis and/or pulmonary embolus.HIGH RISK: Target INR is 2.5-3.5 for patients with mechanical heart valves.
[2017-12-05 06:07] LABS: Absolute Lymphocytes (CBC) 0.3 K/uL (0.7-4.9); Absolute Monocytes 0.6 K/uL (0.1-1.3); Absolute Neutrophil 2.8 K/uL (1.8-8.0); Basophils % 3.2 % (0-1.3); Eosinophils % 4.5 % (0-4.4); Hematocrit 26.7 % (36.0-45.0); Lymphocytes % 7.9 % (15.3-44.8); MCH 34.4 pg (27.0-35.0); MCV 100.3 fL (80-100); MPV 8.8 fL (7.6-11.3); Monocytes % 14.1 % (3.3-12.3); RBC Red Blood Cell Count 2.66 M/uL (3.86-4.86)
[2017-12-05 06:09] LABS: Bicarbonate 20 mEq/L (21-31); Glucose Level 100 mg/dL (65-120); Potassium 3.4 mEq/L (3.6-5.0); Sodium Level 132 mEq/L (135-145)
[2017-12-05 06:12] LABS: Protime INR 1.18
[2017-12-05 06:15] LABS: ALT/SGPT 20 IU/L (10-60); AST/SGOT 58 IU/L (10-42); Albumin 3.6 g/dL (3.2-5.5); Alkaline Phosphatase 102 IU/L (42-121); BUN Blood Urea Nitrogen 12 mg/dL (6-20); Bilirubin Direct 0.3 mg/dL (0-0.2); Bilirubin Total 0.9 mg/dL (0.3-1.2); Protein, Total 7.2 g/dL (6.0-8.3)
[2017-12-05 06:16] LABS: Alcohol Serum/Plasma 122 mg/dl; Salicylates Level < 4.0 mg/dl (<30)
--- NOTE | 2017-12-05 07:19 | EDPHYS ---
Physician Documentation [facility] Name: Amauri Miller Age: 47 yrs Sex: Female : 1970 Arrival Date: 12/05/2017 Time: 05:14 Bed 6 Private MD: Tray Leigh H ED Physician Josh Guevara HPI: 12/05 05:31 This 47 yrs old Female presents to ER via Ambulatory with complaints of Wound bro Check - Abd. 05:31 Patient presents to ED for recheck of: ulcerated area. The affected area is on the left bro upper quadrant. Previous treatment: none. Progress: The patient reports no change in. The patient has not experienced similar symptoms in the past. 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 LMP N/A - iw Historical: - Allergies: :27 No Known Allergies; tl2 - Home Meds: 05:27 ciprofloxacin chl 500 mg once dialy for 30 days [Active]; ferrous sulfate 134 mg (27 mg tl2 iron) Oral tab [Active]; folic acid 1 mg Oral tab 1 tab once daily [Active]; furosemide 40 mg Oral tab 1 tab once daily [Active]; lactulose 20 gram/30 mL Oral soln 30 mL 3 times per day [Active]; multivitamin with minerals Oral tab [Active]; nadolol 20 mg Oral tab 1 tab once daily [Active]; omeprazole 20 mg Oral cpDR 2 caps 2 times per day [Active]; potassium chloride 20 mEq Oral TbTQ 1 tab once daily [Active]; rifaximin 550 mg tab Oral 1 tab 2 times per day [Active]; sodium bicarbonate 650 mg Oral tab twice a day [Active]; vitamin b1 [Active]; Vitamin B-6 Oral [Active]; Zofran (as hydrochloride) 4 mg Oral tab 2 tabs for one tab as needed [Active]; tramadol 50 mg Oral tab 1 tab every 6 hours [Active]; - PMHx: 05:27 Anemia; Cirrhosis; Hernia; second one, not repaired; possible htn; tl2 - Immunization history:: Adult Immunizations up to date. - Social history:: Smoking status: Patient uses tobacco products, smokes one-half pack cigarettes per day. - Family history:: not pertinent. ROS: 05:31 Constitutional: Negative for fever, chills, and weight loss, Eyes: Negative for injury, bro pain, redness, and discharge, ENT: Negative for injury, pain, and discharge, Neck: Negative for injury, pain, and swelling, Cardiovascular: Negative for chest pain, palpitations, and edema, Respiratory: Negative for shortness of breath, cough, wheezing, and pleuritic chest pain, Back: Negative for injury and pain, : Negative for injury, bleeding, discharge, and swelling, MS/Extremity: Negative for injury and deformity, Skin: Negative for injury, rash, and discoloration, Neuro: Negative for headache, weakness, numbness, tingling, and seizure. 05:31 Abdomen/GI: Positive for abdominal pain. Exam: 05:31 Constitutional: This is a well developed, well nourished patient who is awake, alert, bro and in no acute distress. Head/Face: Normocephalic, atraumatic. Eyes: Pupils equal round and reactive to light, extra-ocular motions intact. Lids and lashes normal. Conjunctiva and sclera are non-icteric and not injected. Cornea within normal limits. Periorbital areas with no swelling, redness, or edema. ENT: Nares patent. No nasal discharge, no septal abnormalities noted. Tympanic membranes are normal and external auditory canals are clear. Oropharynx with no redness, swelling, or masses, exudates, or evidence of obstruction, uvula midline. Mucous membranes moist. Neck: Trachea midline, no thyromegaly or masses palpated, and no cervical lymphadenopathy. Supple, full range of motion without nuchal rigidity, or vertebral point tenderness. No Meningismus. Chest/axilla: Normal chest wall appearance and motion. Nontender with no deformity. No lesions are appreciated. Cardiovascular: Regular rate and rhythm with a normal S1 and S2. No gallops, murmurs, or rubs. Normal PMI, no JVD. No pulse deficits. Respiratory: Lungs have equal breath sounds bilaterally, clear to auscultation and percussion. No rales, rhonchi or wheezes noted. No increased work of breathing, no retractions or nasal flaring. Back: No spinal tenderness. No costovertebral tenderness. Full range of motion. Skin: Warm, dry with normal turgor. Normal color with no rashes, no lesions, and no evidence of cellulitis. MS/ Extremity: Pulses equal, no cyanosis. Neurovascular intact. Full, normal range of motion. Neuro: Awake and alert, GCS 15, oriented to person, place, time, and situation. Cranial nerves II-XII grossly intact. Motor strength 5/5 in all extremities. Sensory grossly intact. Cerebellar exam normal. Normal gait. Psych: Awake, alert, with orientation to person, place and time. Behavior, mood, and affect are within normal limits. 05:31 Abdomen/GI: Inspection: distension, Bowel sounds: normal, Palpation: abdomen is soft and non-tender, Liver: no appreciated palpable abnormalities, Hernia: not appreciated. Vital Signs: 05:27 BP 125 / 81; Pulse 89; Resp 18; Pulse Ox 100% on R/A; Weight 63.5 kg; Height 5 ft. 6 tl2 in. (167.64 cm); Pain 0/10; 06:59 BP 106 / 69; Pulse 85; Resp 18; Pulse Ox 95% on R/A; tl2 05:27 Body Mass Index 22.60 (63.50 kg, 167.64 cm) tl2 MDM: 05:17 Patient medically screened. [facility] 05:35 Data reviewed: vital signs, nurses notes, lab test result(s), EKG, radiologic studies. [facility] 12/05 05:31 Order name: Acetaminophen; Complete Time: 07:06 [facility] 12/05 05:31 Order name: Basic Metabolic Panel; Complete Time: 07:06 [facility] 12/05 05:31 Order name: CBC with Diff [facility] 12/05 05:31 Order name: ETOH Level; Complete Time: 07:06 [facility] 12/05 05:31 Order name: Hepatic Function; Complete Time: 07:06 [facility] 12/05 05:31 Order name: PT-INR; Complete Time: 07:06 [facility] 12/05 05:31 Order name: Ptt, Activated; Complete Time: 07:06 [facility] 12/05 05:31 Order name: Salicylate; Complete Time: 07:06 [facility] 12/05 05:31 Order name: Urine Drug Screen [facility] 12/05 05:31 Order name: AMMONIA; Complete Time: 07:06 [facility] 12/05 05:31 Order name: Urine Culture [facility] 12/05 06:12 Order name: CBC Smear Scan EDMS 12/05 07:10 Order name: Type And Screen [facility] 12/05 10:34 Order name: Urine Dipstick--Ancillary (enter results) ag 12/05 05:31 Order name: EKG; Complete Time: 05:31 [facility] 12/05 05:31 Order name: EKG - Nurse/Tech; Complete Time: 05:55 [facility] 12/05 05:31 Order name: IV Saline Lock; Complete Time: 05:58 [facility] 12/05 05:31 Order name: Labs collected and sent; Complete Time: 05:58 [facility] 12/05 05:31 Order name: Chest Single View XRAY [facility] 12/05 05:31 Order name: Wound dressing; Complete Time: 05:59 [facility] 12/05 05:57 Order name: CT Abd/Pelvis - Without Cont [facility] 12/05 07:28 Order name: CONS Physician Consult EDMS 12/05 07:28 Order name: CONS Physician Consult EDMS Administered Medications: 07:30 Drug: Lactulose 30 grams Volume: 45 ml; Route: PO; iw 08:30 Follow up: Response: No adverse reaction hj 07:31 Drug: Potassium Chloride 20 mEq Route: PO; iw 08:31 Follow up: Response: No adverse reaction hj 08:30 Drug: Thiamine 100 mg Route: IV; Rate: bolus; Site: right antecubital; hj 08:49 Follow up: IV Status: Completed infusion hj Disposition: 12/05/17 07:18 Hospitalization ordered by Argenis Moreno for Observation. Preliminary diagnosis are Alcoholic cirrhosis of liver, Ascites, Abdominal tenderness - cutaneous leak, acites, Alcohol abuse with intoxication, Anemia, unspecified, Hypokalemia. - Bed requested for Telemetry/MedSurg (observation). - Status is Observation. ag - Condition is Stable. - Problem is new. - Symptoms have improved. UTI on Admission? No Signatures: Dispatcher [employer] EDOK Josh Guevara MD MD cha Williams, Irene, RN RN Christi Romero Mani Tomas RN RN Lucy Sellers RN RN Diamante Manzo, KIMBERLY RN tl2 Corrections: (The following items were deleted from the chart) 09:33 07:18 Hospitalization Ordered by Argenis Moreno MD for Observation. Preliminary diagnosis ag is Alcoholic cirrhosis of liver; Ascites; Abdominal tenderness - cutaneous leak, acites; Alcohol abuse with intoxication; Anemia, unspecified; Hypokalemia. Bed requested for Telemetry/MedSurg (observation). Status is Observation. Condition is Stable. Problem is new. Symptoms have improved. UTI on Admission? No. bro 10:05 09:33 12/05/2017 07:18 Hospitalization Ordered by Argenis Moreno MD for Observation. hb Preliminary diagnosis is Alcoholic cirrhosis of liver; Ascites; Abdominal tenderness - cutaneous leak, acites; Alcohol abuse with intoxication; Anemia, unspecified; Hypokalemia. Bed requested for Telemetry/MedSurg (observation). Status is Observation. Condition is Stable. Problem is new. Symptoms have improved. UTI on Admission? No. ag 10:35 10:05 12/05/2017 07:18 Hospitalization Ordered by Argenis Moreno MD for Observation. ag Preliminary diagnosis is Alcoholic cirrhosis of liver; Ascites; Abdominal tenderness - cutaneous leak, acites; Alcohol abuse with intoxication; Anemia, unspecified; Hypokalemia. Bed requested for Telemetry/MedSurg (observation). Status is Observation. Condition is Stable. Problem is new. Symptoms have improved. UTI on Admission? No. hb
--- NOTE | 2017-12-05 07:19 | ER ---
Nurse's Notes [facility] Name: Amauri Miller Age: 47 yrs Sex: Female : 1970 Arrival Date: 12/05/2017 Time: 05:14 Bed 6 Private MD: Tray Leigh H Diagnosis: Alcoholic cirrhosis of liver;Ascites;Abdominal tenderness-cutaneous leak, acites;Alcohol abuse with intoxication;Anemia, unspecified;Hypokalemia Presentation: 12/05 05:23 Presenting complaint: Patient states: I have a paracentesis every two weeks. I have tl2 this scab on my abdomen where I have a hernia and tonight I scratched it and it started draining that fluid. Pt denies pain, SOB, NV. Transition of care: patient was not received from another setting of care. Onset of symptoms was December 05, 2017 at 05:00. Initial Sepsis Screen: Does the patient meet any 2 criteria? No. Patient's initial sepsis screen is negative. Does the patient have a suspected source of infection? No. Patient's initial sepsis screen is negative. Care prior to arrival: None. 05:23 Method Of Arrival: Ambulatory tl2 05:23 Acuity: CASI 3 tl2 Triage Assessment: 05:27 General: Appears in no apparent distress. comfortable, Behavior is calm, cooperative, tl2 appropriate for age. Pain: Denies pain. Neuro: Level of Consciousness is awake, alert, obeys commands, Oriented to person, place, time, situation. Cardiovascular: Denies chest pain. Respiratory: Airway is patent Respiratory effort is even, unlabored, Respiratory pattern is regular, symmetrical, Breath sounds are clear bilaterally. GI: Abdomen is round distended, noted to have ascites, Pt states she has a paracentesis every 2 weeks. : No signs and/or symptoms were reported regarding the genitourinary system. Derm: Skin is pink, warm \T\ dry. Wound noted umbilical area Wound is pink around edges, is draining serous fluid. DIRECTOR TITLE: 07:31 LMP N/A - iw Historical: - Allergies: 05:27 No Known Allergies; tl2 - Home Meds: 05:27 ciprofloxacin chl 500 mg once dialy for 30 days [Active]; ferrous sulfate 134 mg (27 mg tl2 iron) Oral tab [Active]; folic acid 1 mg Oral tab 1 tab once daily [Active]; furosemide 40 mg Oral tab 1 tab once daily [Active]; lactulose 20 gram/30 mL Oral soln 30 mL 3 times per day [Active]; multivitamin with minerals Oral tab [Active]; nadolol 20 mg Oral tab 1 tab once daily [Active]; omeprazole 20 mg Oral cpDR 2 caps 2 times per day [Active]; potassium chloride 20 mEq Oral TbTQ 1 tab once daily [Active]; rifaximin 550 mg tab Oral 1 tab 2 times per day [Active]; sodium bicarbonate 650 mg Oral tab twice a day [Active]; vitamin b1 [Active]; Vitamin B-6 Oral [Active]; Zofran (as hydrochloride) 4 mg Oral tab 2 tabs for one tab as needed [Active]; tramadol 50 mg Oral tab 1 tab every 6 hours [Active]; - PMHx: 05:27 Anemia; Cirrhosis; Hernia; second one, not repaired; possible htn; tl2 - Immunization history:: Adult Immunizations up to date. - Social history:: Smoking status: Patient uses tobacco products, smokes one-half pack cigarettes per day. - Family history:: not pertinent. Screenin:29 Abuse screen: Denies threats or abuse. Nutritional screening: No deficits noted. tl2 Tuberculosis screening: No symptoms or risk factors identified. Fall Risk None identified. Assessment: 05:29 General: see triage assessment. tl2 06:54 Reassessment: Patient appears in no apparent distress at this time. Patient and/or tl2 family updated on plan of care and expected duration. Pain level reassessed. Patient is alert, oriented x 3, equal unlabored respirations, skin warm/dry/pink. Pt returned from CT. 07:31 General: Appears in no apparent distress. Behavior is calm, cooperative. Pain: Denies iw pain. Neuro: Level of Consciousness is awake, alert, obeys commands, Oriented to person, place, time, Moves all extremities. Cardiovascular: Patient's skin is warm and dry. Respiratory: Respiratory effort is even, unlabored, Respiratory pattern is regular, symmetrical. GI: Abdomen is distended, noted to have ascites, wound noted to mid abdomen, pink, with clear peritoneal fluid leaking, abd pad in place, secured with foam tape. Derm: Skin is fragile, Skin is normal. Vital Signs: 05:27 BP 125 / 81; Pulse 89; Resp 18; Pulse Ox 100% on R/A; Weight 63.5 kg; Height 5 ft. 6 tl2 in. (167.64 cm); Pain 0/10; 06:59 BP 106 / 69; Pulse 85; Resp 18; Pulse Ox 95% on R/A; tl2 05:27 Body Mass Index 22.60 (63.50 kg, 167.64 cm) tl2 ED Course: 05:14 Patient arrived in ED. am2 05:15 Tray Leigh MD is Private Physician. am2 05:17 Josh Guevara MD is Attending Physician. bro 05:25 Triage completed. tl2 05:27 Arm band placed on right wrist. tl2 05:29 Patient has correct armband on for positive identification. Bed in low position. Call tl2 light in reach. Side rails up X 1. Adult w/ patient. 05:38 Inserted saline lock: 20 gauge in right forearm, using aseptic technique. Blood tl2 collected. 05:47 EKG done, by ED staff, reviewed by Josh Guevara MD. cb2 05:56 X-ray completed. Portable x-ray completed in exam room. Patient tolerated procedure kw well. 05:56 Chest Single View XRAY In Process Unspecified. EDMS 05:58 Diamante Manzo RN is Primary Nurse. tl2 06:01 Wound care: to puncture located on epigastric area was dressed with ABD pads, Patient bp tolerated well. 06:24 CT Abd/Pelvis - Without Cont In Process Unspecified. EDMS 07:11 Argenis Moreno MD is Hospitalizing Provider. bro 07:33 Primary Nurse role handed off by Diamante Manzo RN iw 07:33 Jennifer Blancas, KIMBERLY is Primary Nurse. iw 08:28 Dressings: ABD pad X 1; abdomen. bm6 10:03 No provider procedures requiring assistance completed. Patient admitted, IV remains in hb place. Administered Medications: 07:30 Drug: Lactulose 30 grams Volume: 45 ml; Route: PO; iw 08:30 Follow up: Response: No adverse reaction hj 07:31 Drug: Potassium Chloride 20 mEq Route: PO; iw 08:31 Follow up: Response: No adverse reaction hj 08:30 Drug: Thiamine 100 mg Route: IV; Rate: bolus; Site: right antecubital; hj 08:49 Follow up: IV Status: Completed infusion hj Outcome: 07:18 Decision to Hospitalize by Provider. bro 10:03 Admitted to Med/surg Other Reprot called to Gertrudis HARRIS. Pt then transported for hb paracentesis with tech. 2nd Floor ROBERT Mondragon RN notified pt will be coming up after paracentesis. 10:05 Condition: stable hb 10:05 Instructed on the need for admit, Demonstrated understanding of instructions. 10:05 Patient left the ED. hb 10:35 Patient left the ED. ag Signatures: Dispatcher [employer] EDJosh Craig MD MD cha Williams, Irene, RN KIMBERLY Fidelina Dave Ana Mani Tomas RN KIMBERLY Lucy Sellers RN RN Diamante Manzo, RN RN tl2 Shamar Nicole 6 Radha Weaver [facility] Abraham Hirsch RN RN bp
[2017-12-05] MEDS ORDERED: POTASSIUM CL SA 10 MEQ TAB PO ONE (07:21)
[2017-12-05] MEDS ORDERED: LACTULOSE 20 GM/30 ML UCUP ONE (07:21)
[2017-12-05 07:46] LABS: Blood Morphology Comment NOT SEEN (NOT SEEN); Platelet Estimate ADEQ; Urine White Blood Cell Casts OK
[2017-12-05] MEDS ORDERED: THIAMINE 200 MG/2 ML INJ ONE (08:36)
--- NOTE | 2017-12-05 08:51 | RAD REPORT ---
EXAM DESCRIPTION: RAD - Chest Single View - 12/05/2017 5:58 am CLINICAL HISTORY: Chest pain. COMPARISON: 09/30/2017 FINDINGS: Portable technique limits examination quality. The lungs are grossly clear. The heart is normal in size. No displaced fractures. IMPRESSION: No acute intrathoracic process suspected.
--- NOTE | 2017-12-05 08:55 | RAD REPORT ---
EXAM DESCRIPTION: CT - Abdomen Pelvis Wo Contrast - 12/05/2017 7:32 am CLINICAL HISTORY: Abdominal pain. Ascites. COMPARISON: 10/21/2017 TECHNIQUE: CT imaging of the abdomen and pelvis was performed without contrast. Solid organ, bowel a nd vascular assessment is limited due to lack of IV and oral contrast. All CT scans are performed using dose optimization technique as appropriate and may include automated exposure control or mA/KV adjustment according to patient size. FINDINGS: Linear atelectasis is seen in the right lung base. Esophageal varices are seen. Shrunken nodular liver contour seen compatible with cirrhosis. Gallstone is present in the gallbladde r. The spleen, pancreas, adrenal glands and kidneys are without acute process. Moderate volume ascites noted. A collection of ascitic fluid is seen anterior to the anterior abdomin al wall fascia, presumably within a ventral hernia, unchanged since prior study. No bowel obstruction or free air seen. The osseous structures are within normal limits. IMPRESSION: Moderate volume ascites. Ascitic fluid is also present within a ventral hernia as detail ed. Liver cirrhosis. Cholelithiasis. A limited non-contrast examination was performed as detailed.
[2017-12-05] MEDS: PIPER/TAZO/NS 3.375gm 3.375 GM/100 ML BAG IVPB SCH ×2 (09:00→17:09)
--- NOTE | 2017-12-05 10:03 | EKG ---
Test Date: 2017-12-05 Test Time: 05:47:14 Golf Course Keeper: OSKAR MEASUREMENT RESULTS: Intervals: Rate: 83 VA: 156 QRSD: 72 QT: 398 QTc: 467 [place]: P: 37 VA: 156 QRS: 47 T: 43 INTERPRETIVE STATEMENTS: Normal sinus rhythm Septal infarct, age undetermined Abnormal ECG No previous ECG available for comparison Electronically Signed On 12-05-17 10:02:51 CDT by Eduard Crawford
[2017-12-05 10:45] LABS: Urine Blood NEGATIVE (NEG); Urine Glucose NEGATIVE (NEG); Urine Protein NEGATIVE (NEG); Urine Specific Gravity <1.005 (1.005-1.030)
[2017-12-05 10:48] LABS: Barbiturates NEGATIVE; Benzodiazepines NEGATIVE; Cocaine NEGATIVE; METHAMPHETAM NEGATIVE; Opiates NEGATIVE; Phencyclidine NEGATIVE; THC Cannibis POSITIVE
--- NOTE | 2017-12-05 11:07 | RAD REPORT ---
EXAM DESCRIPTION: US - Paracentesis Proc Guidance - 12/05/2017 10:49 am CLINICAL HISTORY: Cirrhosis, spontaneous drainage through skin wound COMPARISON: Multiple prior studies TECHNIQUE: The patient presents for ultrasound-guided paracentesis. The procedure, risks and altern atives were discussed with the patient in detail. Oral and written consent were obtained. Time out p rocedure was performed. The patient had no contraindicated allergy or medication history. Preliminary imaging showed far less ascites than typically seen for this patient. An estimated 1 lite r of ascites available for drainage. After discussion with the primary service, it was elected to can milo the therapeutic paracentesis and to perform a diagnostic paracentesis. Preliminary imaging identified a right side access site. The skin and deeper tissues were anesthetize d with 1 percent lidocaine. Under direct sonographic visualization, a 22 gauge needle was advanced i nto the peritoneal cavity. Approximately 5 mL of ascites removed for requested laboratory studies. Ba ndage placed to the puncture site. IMPRESSION: Ultrasound-guided diagnostic paracentesis performed as detailed.
[2017-12-05 11:19] VITALS: BMI 21.9
[2017-12-05 12:04] LABS: Appearance CLEAR (CLEAR); Body Fluid Source PERITONEAL; Body Fluid WBC 350 /mm^3; Color of fluid Colorless (COLORLESS)
[2017-12-05] MEDS ORDERED: LORazepam 2 MG/ML VIAL IV PRN (13:12)
[2017-12-05] MEDS: LACTULOSE 20 GM/30 ML UCUP PO SCH ×2 (13:41→20:58)
[2017-12-05] MEDS: TRAMADOL HCL 50 MG TAB PO PRN ×2 (17:09→23:28)
[2017-12-05] MEDS: MIDODRINE HCL 5 MG TABLET PO SCH (20:59)
--- NOTE | 2017-12-06 01:29 | HP ---
Date of Admission: 12/05/2017 Rn Endocrinology: Dr. Leigh, GI. Chief Complaint: Abdominal pain and discharge from wound. Primary Care Physician: Dr. Leigh. History Of Present Illness: The patient is a 47-year-old female with past medical history of liver c irrhosis secondary to chronic alcohol use, nicotine dependence, as well as anemia, who was in her [facility] state of health until night prior to admission when the patient accidentally scratched out her sca b from her abdomen and noticed fluid leaking. The patient denies any significant abdominal pain, iraida sea, vomiting, fever, chills, chest pain, shortness of breath of breath. The patient came into the E R for further evaluation. Upon arrival, her vital signs were stable. She was afebrile. The patient 's workup revealed a white count of 4, hemoglobin was 9. She did have some mild electrolyte abnormal ities. The patient's symptoms were constant, moderate, progressively worsening. No alleviating or a ggravating factors. The patient was referred for admission. Radiology was consulted for paracentesi s by Dr. Guevara. When the patient was seen in the ER, she was awake, alert, oriented x3, in some m ild distress. Past Medical History: Alcoholic liver cirrhosis, anemia. Past Surgical History: Multiple paracentesis on a biweekly basis. Hernia repair. Allergies: NO KNOWN DRUG ALLERGIES. Medications: Reviewed. Social History: The patient is . Has a son. The patient smokes half a pack per day for porsha ral years. Drinks a glass of wine daily and smokes marijuana. Family History: The patient does not know her family history due to being adopted. She does not kno w the history of her parents. Review of Systems: An 11-point system reviewed, negative except as per HPI. Physical Examination: Vital Signs: Blood pressure 125/81, pulse 89, respirations 18, O2 100% on room air. General: Awake, alert, and oriented x3, in some mild distress, appears older than the stated age, il l-appearing female. BMI 22. CV: S1, S2. Regular rate and rhythm. Peripheral pulses present bilaterally. Respiratory: Clear to auscultation bilaterally. No wheezing. No stridor. No use of accessory musc les. Gastrointestinal: Abdomen is soft, distended. Positive bowel sounds. No guarding or rigidity. Extremities: No clubbing, cyanosis, or edema. Neuro: Cranial nerves 2 through 12 intact grossly. No focal neurological deficit. Speech is normal . Strength is 5/5 bilateral upper and lower extremities. Skin: The patient does have some excoriation and ulceration on the abdomen with opening with resulta nt ascitic fluid discharge. No foul odor. Psych: Mood is okay. Affect is full. Insight and judgment are good. Laboratory Data: WBC 4, H and H 9.2, 26.7, MCV 100.3, platelets 127, neutrophils 70%. INR 1.18. So dium 132, potassium 3.4, chloride 105, CO2 of 20, BUN 12, creatinine 0.86, glucose 100, calcium 8.5, AST 58, ALT 20, alkaline phosphatase 102, total bilirubin 0.9, ammonia 71. Albumin 3.6. UA is negat madeleine. Peritoneal fluid is colorless, clear, and 350 WBC's, 10-30 RBC's, 30 neutrophils, 27 lymphocyte s. UDS; positive for THC. Serum alcohol level 122. Assessment And Plan: A 47-year-old female with; 1.Abdominal ulceration with ascitic fluid discharge. We will obtain wound cultures and the patient may have spontaneous bacterial peritonitis. We will start on IV antibiotics. 2.Acute alcohol intoxication. Alcohol level is 122. We will place on Ativan p.r.n. We will place on thiamine and folate. 3.Alcoholic liver cirrhosis, status post diagnostic paracentesis. The patient only had less than 1 L of ascitic fluid. We will follow up on culture. 4.Anemia, likely secondary to liver disease with macrocytosis. We will monitor H and H. 5.Hypokalemia. We will replace and monitor. 6.Marijuana abuse. 7.Hyponatremia, secondary to alcoholic liver disease. 8.Hyperammonemia. We will continue lactulose. 9.Gastrointestinal and deep venous thrombosis prophylaxes addressed. No chemical anticoagulation du e to recent procedure. 10.Nicotine dependence with cigarette smoking. Counseled. Plan: Continue IV antibiotics. Admit to Med-Surg. Place as observation. Counseled. MIKE Voice ID: [id number]
--- NOTE | 2017-12-06 02:05 | CON ---
Date of Consultation: 12/05/2017 Reason For Consultation: Ascites with spontaneous rupture of intraabdominal wall with ascites over a bdomen. History Of Present Illness: The patient is a 47-year-old white female with history of alcoholic live r disease, end-stage, with massive ascites, requiring recurrent ultrasound-guided paracenteses. The patient states she was in usual state of health and has had decreasing frequency of ultrasound-guided paracenteses which she has needed. However, she had a scab on her abdomen, began scratching it, and then the scab broke off, and then the fluid started coming out of her abdomen. The patient states t hat it overflowed and went all over her new mattress she had just bought and soaked the mattress. Th e patient came to the hospital for further evaluation and care. The patient has been told multiple t imes to refrain from any further alcohol. The patient states she will refrain from alcohol at this t gaye. Allergies: NKDA. Home Medications: Include aspirin, Lasix, Aldactone (spironolactone), iron sulfate, folic acid, mult ivitamins, nadolol, omeprazole, Zofran, potassium, vitamin B6, rifaximin, sodium bicarbonate, vitamin B1, and lactulose. Past Medical History: Significant for alcoholic liver cirrhosis, end-stage, with massive ascites, wi th recurrent ultrasound-guided paracenteses, though the patient states its frequency is decreasing. Hernia repair. Family History: The patient does not know history of her parents, she reports. Social History: Positive for tobacco. Positive for alcohol, beer. No caffeine. Lives at home with her . Review of Systems: The patient had spontaneous rupture after scratching scab on abdomen, with fluid going all over herse lf and all over the bed, soaking her new mattress. The patient denies any melena, hematochezia, aravind temesis, coffee-ground emesis, hematuria, dysphagia, dysuria, polyphagia, polydipsia, seizures, synco pe, shortness of breath, or chest pain. No depression or anxiety. Physical Examination: Vital Signs: The patient is 5 feet 5 inches, 132 pounds, BMI 22 kg/m2, temperature 99.8 degrees Fahr enheit, pulse 92, respirations 18, blood pressure 89/54, and O2 saturation 97%. General: She is a patient lying in bed, with protuberant and large abdomen, with thin extremities. No acute distress. HEENT: Normocephalic, atraumatic. Anicteric. Pupils are equal, round, and reactive to light. Extr aocular movements are intact. Oropharynx clear. Neck: Supple. No masses. Respirations: Clear to auscultation bilaterally. Cardiac: Regular rate and rhythm. Gastrointestinal: Positive bowel sounds. Soft, nontender, and nondistended. No hepatosplenomegaly. Slight dullness on percussion in the flanks. The patient has a large, like a Band-Aid, 2 x 2 fuller ge over the area where her abdomen spontaneously leaked. Extremities: No clubbing, cyanosis, or edema. Muscle wasting is noted in all extremities and face a nd temporal wasting as well. Neurologic: Alert and oriented x3. Grossly nonfocal; 5/5 motor strength. Sensation intact to light touch. Laboratory Data: The patient has a white count of 4.0, hemoglobin 9.2, hematocrit 27, MCV of 100, pl atelet count 127, polys 70, lymphocytes 8, monocytes 14, eosinophils 5, and basophils 3%. PT of 13.9 , INR of 1.2, and PTT 32.2. The patient has a sodium of 132, potassium 3.4, chloride 105, bicarb 20, BUN of 12, creatinine of 0.9, glucose 100, and calcium 8.5. Total bilirubin 0.9, direct bilirubin 0 .3, AST of 58, ALT of 20, alkaline phosphatase 102, ammonia 71, total protein 7.2, and albumin 3.6. UA was negative. Plasma alcohol was 122; normal range is less than 50. Tylenol was less than 10. P ositive for urine THC screen. CT abdomen and pelvis on December 05 revealed moderate volume ascites. Ascitic fluid is also present wit hin the ventral hernia as detailed. Liver cirrhosis and cholelithiasis. Impression: 1.Spontaneous leaking of ascites after scab/wound on the ventral abdominal wall surfaces was scratch ed, and fluid bursted out. She said it went all over her like urine and all over her new mattress an d soaked the mattress. The patient was told to clip her fingernails; so, this would not happen again , hopefully, but the patient needs to stop drinking all alcohol immediately. I told her that her ris k of dying is over 50% in the next 1 to 2 years and that with the rupture of the ascites, the fluid c an get out, and infections and bacteria can get into her abdomen, and she can have a massive infectio n which could cause her with spontaneous bacterial peritonitis. 2.Ascites secondary to end-stage liver disease and cirrhosis secondary alcoholism. The patient note s decreased frequency of ultrasound-guided paracenteses. 3.Cirrhosis secondary to alcohol. Recommendations: 1.No more alcohol. The patient will have to go to [facility]coh[facility] or rehab facility on discharg e. Continue IV antibiotics and switch to p.o. antibiotics as able. 2.Low-sodium diet. 3.Discontinue Aldactone and Xifaxan. Continue lactulose. 4.DT precautions. 5.Thiamine and folate supplementation in this alcoholic. 6.P.r.n. benzodiazepine for probable alcohol withdrawal which will occur in this patient. CORNELIO/HILARIO Voice ID: [id number] Report ID: [id number]
[2017-12-06] MEDS ORDERED: NA CHLORIDE 0.9% 250 ML ONE (02:10)
[2017-12-06] MEDS: PIPER/TAZO/NS 3.375gm 3.375 GM/100 ML BAG IVPB SCH ×3 (02:16→18:34)
[2017-12-06] MEDS: LACTULOSE 20 GM/30 ML UCUP PO SCH ×4 (02:16→21:39)
[2017-12-06 06:44] LABS: Absolute Lymphocytes (CBC) 0.3 K/uL (0.7-4.9); Absolute Monocytes 0.6 K/uL (0.1-1.3); Absolute Neutrophil 3.3 K/uL (1.8-8.0); Basophils % 2.2 % (0-1.3); Eosinophils % 4.9 % (0-4.4); Hematocrit 28.3 % (36.0-45.0); Lymphocytes % 5.6 % (15.3-44.8); MCV 102.2 fL (80-100); MPV 9.3 fL (7.6-11.3); Monocytes % 13.4 % (3.3-12.3); RBC Red Blood Cell Count 2.77 M/uL (3.86-4.86)
[2017-12-06 07:04] LABS: Albumin 3.3 g/dL (3.2-5.5); Bilirubin Total 1.8 mg/dL (0.3-1.2); Potassium 3.9 mEq/L (3.6-5.0)
[2017-12-06] MEDS ORDERED: NADOLOL 40 MG TAB PO SCH (09:00)
[2017-12-06] MEDS ORDERED: NADOLOL 10 MG PO SCH (09:00)
[2017-12-06] MEDS: MIDODRINE HCL 5 MG TABLET PO SCH ×2 (09:00→21:40)
[2017-12-06] MEDS: TRAMADOL HCL 50 MG TAB PO PRN ×2 (10:24→21:40)
[2017-12-06] MEDS: THIAMINE HCL 100 MG TABLET PO SCH (10:25)
[2017-12-06] MEDS: BUMETANIDE 1 MG TABLET PO SCH (10:26)
[2017-12-06] MEDS: SODIUM BICARB 325 MG TAB PO SCH (10:26)
[2017-12-06] MEDS: POTASSIUM CL SA 10 MEQ TAB PO SCH (10:26)
[2017-12-06] MEDS: PANTOPRAZOLE 40MG TABLET PO SCH (10:26)
[2017-12-06] MEDS: FOLIC ACID 1 MG TABLET PO SCH (10:26)
[2017-12-06] MEDS: MUPIROCIN 2% OINT 22GM TUBE TOP SCH (10:27)
--- NOTE | 2017-12-06 16:22 | P.PN ---
Subjective Date of Service: 12/06/17 Chief Complaint: ascites with spontaneous rupture of ventral abdominal wall after scratching Subjective: Improving (No further leaking of ascites fluid since paracentesis yesterday. Feels better. Ascites may have bacterial growth, culture pending.) Review of Systems 10-point ROS is otherwise unremarkable General: Weakness (improved) Physical Examination - Vital Signs Temperature: 98 F Blood Pressure: 99/55 Pulse: 78 Respirations: 18 Pulse Ox (%): 99 - Physical Exam General: Alert, In no apparent distress, Oriented x3, Cooperative HEENT: Atraumatic, Normocephalic, PERRLA, EOMI, Sclerae nonicteric Neck: Supple Respiratory: Normal air movement Cardiovascular: Normal pulses Gastrointestinal: No tenderness, No rebound, No guarding, Ascites (mild) Neurological: Normal speech, Normal strength at 5/5 x4 extr Assessment And Plan - Current Problems (Diagnosis) (1) Ascites Onset Date: 10/21/17 Current Visit: Yes Status: Acute Qualifiers: (2) Chronic kidney disease Onset Date: 10/21/17 Current Visit: No Status: Acute Qualifiers: (3) Hepatic encephalopathy Onset Date: 09/21/15 Current Visit: No Status: Acute (4) Alcoholic cirrhosis Onset Date: 10/21/17 Current Visit: No Status: Chronic Qualifiers: (5) Anemia Onset Date: 10/21/17 Current Visit: No Status: Chronic Qualifiers: (6) GERD (gastroesophageal reflux disease) Onset Date: 10/21/17 Current Visit: No Status: Chronic Qualifiers: (7) History of esophageal varices Current Visit: No Status: Chronic - Plan REC: 1) continue diuretics, lactulose, Xifaxan, antibiotics 2) await ascites fluid culture and other fluid studies 3) continue prn U/S guided paracenteses 4) stop all alcohol now. AA on discharge
--- NOTE | 2017-12-06 17:01 | PN ---
Date of Progress Note: 12/06/2017 Subjective: The patient seen and examined, chart reviewed, and case discussed with RN. The patient states, she is feeling significantly better. The patient was seen by wound care and she has not had any further leaking of ascites fluid from her abdomen. Review of Systems: Negative except as above. Medications: Reviewed. Objective: Vital Signs: Temperature 97.4, heart rate 89, blood pressure 91/50, respirations 18, and O2 98% on room air. General: Awake, alert, oriented x3. CV: S1, S2. Regular rate and rhythm. Peripheral pulses present. No murmurs. Respiratory: Clear to auscultation bilaterally. No wheezing. No stridor. No use of accessory musc les. Gastrointestinal: Abdomen is soft. Mild distention. Bowel sounds positive. No rebound or gu arding. A ventral hernia is present. Extremities: No clubbing, cyanosis, or edema. Neurologic: Nonfocal. Skin: Ulceration around the mid abdominal wall with opening in the skin that is covered with no leak ing ascites fluid. Laboratory Data: Sodium 133, potassium 3.9, chloride 107, CO2 18, BUN 14, creatinine 0.93, glucose 9 2, calcium 8.7, total bilirubin 1.8, AST 54, ALT 20, and alkaline phosphatase 91. WBC 4.5, H and H 9 .4, 28.3, platelets 126, and neutrophils 73%. Microbiology; body fluid culture and sensitivity shows 3+ staph coagulase negative. ID and sensitivity pending. Wound culture from abdomen shows no growt h. Urine culture, 100,000 colony-forming units of mixed daniele. Blood cultures show no growth to eveline e. Assessment: A 47-year-old female with; 1.Abdominal ulceration with ascitic fluid leakage. Wound cultures are negative. Ascites fluid cult ure growing 3+ coagulase-negative Staphylococcus, likely contaminant and will amount to nothing, byrd rob, we will wait for identification and sensitivity. We will continue with IV antibiotics. Appreci ate GI input. 2.Acute alcohol intoxication. Alcohol level 122. Continue Ativan p.r.n. for withdrawal symptoms. Continue thiamine and folate. 3.Alcoholic liver cirrhosis, status post diagnostic paracentesis. Follow up on cultures. 4.Macrocytic anemia due to alcohol. 5.Hypokalemia, replaced. Continue to monitor. 6.Marijuana abuse. 7.Hyponatremia, improved. 8.Hyperammonemia. Continue lactulose. 9.Gastrointestinal and deep venous thrombosis prophylaxis with PPI and SCDs. 10.Nicotine dependence with cigarette smoking. Counseled. Plan: Continue antibiotics. Follow up with body fluid culture. Likely discharge in a.m. if continu es to improve. /MODDavion Voice ID: [id number] Report ID: [id number]
[2017-12-06] MEDS: VANCOMYCIN/NS 1 gm 1 GM/250 ML BAG IVPB SCH (21:40)
[2017-12-06] MEDS: ONDANSETRON 4 MG/2 ML VIAL IV PRN (22:24)
[2017-12-07] MEDS: PIPER/TAZO/NS 3.375gm 3.375 GM/100 ML BAG IVPB SCH ×3 (00:54→17:01)
[2017-12-07] MEDS: LACTULOSE 20 GM/30 ML UCUP PO SCH ×4 (02:59→20:37)
[2017-12-07 05:44] LABS: Absolute Lymphocytes (CBC) 0.2 K/uL (0.7-4.9); Absolute Monocytes 0.5 K/uL (0.1-1.3); Absolute Neutrophil 2.8 K/uL (1.8-8.0); Basophils % 2.6 % (0-1.3); Hematocrit 27.6 % (36.0-45.0); Lymphocytes % 6.2 % (15.3-44.8); MCH 33.8 pg (27.0-35.0); MCV 102.2 fL (80-100); Monocytes % 12.8 % (3.3-12.3); RBC Red Blood Cell Count 2.71 M/uL (3.86-4.86)
[2017-12-07 06:19] LABS: Albumin 3.3 g/dL (3.2-5.5); Bilirubin Total 1.3 mg/dL (0.3-1.2); Potassium 3.6 mEq/L (3.6-5.0); Protein, Total 6.8 g/dL (6.0-8.3)
[2017-12-07] MEDS: NADOLOL 40 MG TAB PO SCH (09:00)
[2017-12-07] MEDS: FOLIC ACID 1 MG TABLET PO SCH (09:20)
[2017-12-07] MEDS: PANTOPRAZOLE 40MG TABLET PO SCH (09:20)
[2017-12-07] MEDS: THIAMINE HCL 100 MG TABLET PO SCH (09:20)
[2017-12-07] MEDS: BUMETANIDE 1 MG TABLET PO SCH (09:20)
[2017-12-07] MEDS: MIDODRINE HCL 5 MG TABLET PO SCH ×2 (09:20→20:38)
[2017-12-07] MEDS: POTASSIUM CL SA 10 MEQ TAB PO SCH (09:20)
[2017-12-07] MEDS: MUPIROCIN 2% OINT 22GM TUBE TOP SCH (09:22)
[2017-12-07] MEDS: TRAMADOL HCL 50 MG TAB PO PRN ×2 (09:23→20:45)
[2017-12-07] MEDS: SODIUM BICARB 325 MG TAB PO SCH (09:27)
[2017-12-07] MEDS: ONDANSETRON 4 MG/2 ML VIAL IV PRN ×2 (09:58→20:48)
[2017-12-07] MEDS: VANCOMYCIN/NS 1 gm 1 GM/250 ML BAG IVPB SCH (16:03)
--- NOTE | 2017-12-08 01:40 | DS ---
Date of Discharge: 12/08/2017 Consultants: Dr. Leigh with Gastroenterology. Admitting Diagnoses: 1. Abdominal ulceration with ascitic fluid discharge. 2. Acute alcohol intoxication. 3. Alcoholic liver cirrhosis. 4. Anemia. 5. Hypokalemia. 6. Marijuana abuse. 7. Hyponatremia. 8. Hyperammonemia. 9. Nicotine dependence with cigarette smoking. Discharge Diagnoses: 1. Abdominal ulceration with ascitic fluid leakage. Wound cultures negative. 2. Acute alcohol intoxication, alcohol level 122. 3. Liver cirrhosis secondary to alcohol, status post diagnostic paracentesis. 4. Macrocytic anemia secondary to alcohol. 5. Hypokalemia, replaced. 6. Marijuana abuse. 7. Hyponatremia, improving. 8. Hyperammonemia, continue lactulose. 9. Acute dependence with cigarette smoking, counseled. Hospital Course: The patient is a 47-year-old female with alcoholic liver cirrhosis, who continues to drink, who sees Dr. Leigh as her primary and as her GI, who comes into the hospital with ascites, fluid leakage from her abdominal wall. The patient has a ventral hernia, which causes pressure, and the patient accidentally scratched one of her scabs and has ascites fluid leaking from that area, has caused ulceration around her skin. The patient had abdominal pads placed, and leakage was stopped. Culture was sent off, which grew out coagulase positive Staph, possible skin contaminant. The patient was continued on broad-spectrum IV antibiotics. She did not have enough ascites for paracentesis, however, did have a diagnostic paracentesis. Her initial fluid analysis did not show any bacterial peritonitis signs. The patient was seen by her GI specialist, Dr. Leigh. The patient's white count remained normal. Her vital signs were stable. She was afebrile. She was resumed on her medication. She was counseled extensively against smoking and more importantly against drinking. Her mortality rate is very high within the next year if she continues to drink. She was started on folate and thiamine. Her alcohol level was elevated at 112. She did not have any acute withdrawal symptoms. The patient had CT scan of the abdomen done, which showed linear atelectasis in the right lung base, esophageal varices, shrunken nodular liver contour compatible with cirrhosis. She had moderate volume ascites and ventral hernia. Ascitic fluid present in the hernia as well. She also showed liver cirrhosis, cholelithiasis. The patient did well overall. Her cytology results from the paracentesis showed no malignant cells. The patient's urine culture showed mixed daniele. She was doing well and tolerating diet. The patient was then cleared for discharge, sent home in a stable condition. Activity: As tolerated. Medications: As per medication reconciliation list. Followup: Follow up with primary care physician in 2-3 days. Return to ER for worsening condition. Diet: Low sodium, 1500 mL fluid restriction. Physical Examination: General: Awake, alert, oriented, no acute distress CV: S1, S2. Respiratory: Moving air well bilaterally. Gastrointestinal: Abdomen is soft, nontender, nondistended. Positive bowel sounds. Extremities: No clubbing, cyanosis, edema. Neuro: Nonfocal. Skin: Some mild ulceration around the central abdominal wall near ascites fluid leakage which is now covered with absorbent. No further leakage. /HILARIO Voice ID: [id number] Report ID: [id number] NHAN
[2017-12-08] MEDS ORDERED: NA CHLORIDE 0.9% 250 ML ONE (01:52)
[2017-12-08] MEDS: LACTULOSE 20 GM/30 ML UCUP PO SCH ×2 (02:00→08:56)
[2017-12-08] MEDS: PIPER/TAZO/NS 3.375gm 3.375 GM/100 ML BAG IVPB SCH ×2 (02:00→08:55)
[2017-12-08] MEDS: ONDANSETRON 4 MG/2 ML VIAL IV PRN ×2 (02:05→08:55)
[2017-12-08 03:48] VITALS: O2SAT 99
[2017-12-08] MEDS: TRAMADOL HCL 50 MG TAB PO PRN (05:05)
[2017-12-08 05:25] LABS: Absolute Lymphocytes (CBC) 0.3 K/uL (0.7-4.9); Absolute Monocytes 0.5 K/uL (0.1-1.3); Basophils % 2.6 % (0-1.3); Eosinophils % 5.7 % (0-4.4); Hematocrit 27.2 % (36.0-45.0); Lymphocytes % 7.3 % (15.3-44.8); MCH 34.4 pg (27.0-35.0); MCV 102.4 fL (80-100); MPV 9.4 fL (7.6-11.3); RBC Red Blood Cell Count 2.65 M/uL (3.86-4.86)
[2017-12-08 06:11] LABS: Albumin 2.9 g/dL (3.2-5.5); Bilirubin Total 1.1 mg/dL (0.3-1.2); Potassium 3.4 mEq/L (3.6-5.0); Protein, Total 6.4 g/dL (6.0-8.3)
[2017-12-08 08:41] VITALS: BP 109/57; TEMP 97.9
[2017-12-08] MEDS: VANCOMYCIN/NS 1 gm 1 GM/250 ML BAG IVPB SCH (08:55)
[2017-12-08] MEDS: THIAMINE HCL 100 MG TABLET PO SCH (08:56)
[2017-12-08] MEDS: POTASSIUM CL SA 10 MEQ TAB PO SCH (08:56)
[2017-12-08] MEDS: FOLIC ACID 1 MG TABLET PO SCH (08:57)
[2017-12-08] MEDS: BUMETANIDE 1 MG TABLET PO SCH (08:57)
[2017-12-08] MEDS: SODIUM BICARB 325 MG TAB PO SCH (08:57)
[2017-12-08] MEDS: MUPIROCIN 2% OINT 22GM TUBE TOP SCH (08:58)
[2017-12-08] MEDS: MIDODRINE HCL 5 MG TABLET PO SCH (08:58)
[2017-12-08] MEDS: NADOLOL 40 MG TAB PO SCH (09:00)
[2017-12-08] MEDS: PANTOPRAZOLE 40MG TABLET PO SCH (09:02)
--- NOTE | 2017-12-08 13:25 | PN ---
Date of Progress Note: 12/08/2017 Subjective: The patient is seen and examined. Chart reviewed and case discussed with RN. The patient is doing well. No further leak from her abdominal wall. Review of Systems: Negative except as above. Medications: Reviewed. Objective: Vital Signs: Temperature 97.9, heart rate 91, blood pressure 109/57 , respirations 16, O2 97% on room air. General: Awake, alert, oriented x3, in no acute distress. CV: S1 and S2. No murmurs. Peripheral pulses present. Respiratory: Moving air well bilaterally. No wheezing. Gastrointestinal: Abdomen is soft, nontender. Mild distention. Ascites is present. Ventral hernia present. Bowel sounds positive. Extremities: No clubbing, cyanosis, or edema. Neurologic: Nonfocal. Skin: Ulceration around the abdominal wall leak with ascites fluid draining, bandaged. Laboratory Data: Sodium 135, potassium 3.4, chloride 111, CO2 19, BUN 15, creatinine 1.01, glucose 91, calcium 8.6. WBC 4.1, hemoglobin and hematocrit of 9.1 and 27.2, platelets 124. Prelim blood culture shows gram-positive cocci in clusters, likely contaminant. Assessment And Plan: A 47-year-old female with: 1. Abdominal ulceration with ascitic fluid leakage. Wound cultures negative. 2. Acute alcohol intoxication, alcohol level of 122, resolved. 3. Liver cirrhosis, secondary to alcohol. Status post diagnostic paracentesis. No spontaneous bacterial peritonitis. 4. Microcytic anemia, secondary to alcohol use. 5. Hypokalemia, replaced. 6. Marijuana abuse. 7. Hyponatremia, improving. 8. Hyperammonemia, on lactulose. 9. Nicotine dependence with cigarette smoking. Counseled. Discharge home on antibiotics. Follow up with GI. /MODL Voice ID: [id number] Report ID: [id number] NHAN
== END 2017-12-08 10:40 | disposition home or self-care (01) ==
LOC: ER 05:13 → ERHOLD 07:25 → 2ND 10:53
PROVIDERS: ADMIT Family Medicine; ATTEND Family Medicine
PROC: 0W9G3ZX Drainage of Peritoneal Cavity, Percutaneous Approach, Diagnostic (ICD-10-PCS; principal; 2017-12-05)
PROC: BW40ZZZ Ultrasonography of Abdomen (ICD-10-PCS; 2017-12-05)
DX: K70.31 Alcoholic cirrhosis of liver with ascites (principal); L98.499 Non-pressure chronic ulcer of skin of other sites with unspecified severity; F10.129 Alcohol abuse with intoxication, unspecified; F12.10 Cannabis abuse, uncomplicated; Y90.6 Blood alcohol level of 120-199 mg/100 ml; E87.6 Hypokalemia; F17.210 Nicotine dependence, cigarettes, uncomplicated; D64.9 Anemia, unspecified; E87.1 Hypo-osmolality and hyponatremia; E72.20 Disorder of urea cycle metabolism, unspecified; K43.9 Ventral hernia without obstruction or gangrene
CPT/HCPCS: 36415; 49083; 71045; 74176; 80048; 80053; 80076; 80307; 80320; 80329; 81003; 82140; 82962; 85025; 85610; 85730; 86850; 86900; 86901; 87040; 87070; 87086; 87088; 87205; 88108; 88305; 89050; 93005; 94760; 96365; 99285; G0378; J2405; J2543; J3370; J3411

== ENCOUNTER 2017-12-16 16:24 | Inpatient (IN) | payer MEDICAID ==
--- OUTSIDE RECORDS SUMMARY | 2017-12-16 16:25 | XMS REPORT ---
:1970 [facility] Address [address] [place] [address] Dr. Lockhart [address] [place] [id number] Care Team Providers Name Role Phone RAMON [...] Range Comments ANTI-NUCLEAR ANTIBODY (LÓPEZ) (BEAKER) (test vusa=879) Positive Negative LÓPEZ TITER AND [id number] 09:50:00 Test Item Value Reference Range Comments LÓPEZ TITER (BEAKER) (test xfoo=4636) :40 LÓPEZ PATTERN (BEAKER) (test orrr=9696) Speckled [id number] 15:34:00 Test Item Value Reference Range Comments FERRITIN (BEAKER) (test eocr=091) 237 ng/mL 5-275 HEPATITIS B SURFACE [id number] 14:54:00 Test Item Value Reference Range Comments HEPATITIS B SURFACE ANTIBODY (BEAKER) (test < mIU/mL <8.0 lmju=340) HEPATITIS B SURFACE [id number] 14:49:00 Test Item Value Reference Range Comments HEPATITIS B SURFACE ANTIGEN (2) (BEAKER) (test Nonreactive Nonreactive irnn=1289) HEPATITIS C [id number] 14:49:00 Test Item Value Reference Range Comments HEPATITIS C ANTIBODY (BEAKER) (test evic=736) Nonreactive Nonreactive ALPHA FETOPROTEIN (AFP), TUMOR [id number] 14:48:00 Test Item Value Reference Range Comments ALPHA-FETOPROTEIN (BEAKER) (test dhzc=3342) 4.9 ng/mL <10.0 HEPATITIS B CORE ANTIBODY, [id number] 14:48:00 Test Item Value Reference Range Comments HEPATITIS B CORE TOTAL ANTIBODY (BEAKER) (test Nonreactive Nonreactive czhv=199) HEPATITIS A ANTIBODY, [id number] 14:48:00 Test Item Value Reference Range Comments HEPATITIS A IGG ANTIBODY (BEAKER) (test Nonreactive Nonreactive uamq=8886) CBC W/PLT COUNT & AUTO [id number] 14:30:00 Test Item Value Reference Range Comments WHITE BLOOD CELL COUNT (BEAKER) (test egoj=432) 5.2 K/ L 3.5-10.5 RED BLOOD CELL COUNT (BEAKER) (test hwvg=633) 2.96 M/ L 3.93-5.22 HEMOGLOBIN (BEAKER) (test qpgu=644) 9.7 GM/DL 11.2-15.7 HEMATOCRIT (BEAKER) (test xgrt=008) 31.0 % 34.1-44.9 MEAN CORPUSCULAR VOLUME (BEAKER) (test djxb=768) 104.7 fL 79.4-94.8 MEAN CORPUSCULAR HEMOGLOBIN (BEAKER) (test 32.8 pg 25.6-32.2 liie=151) MEAN CORPUSCULAR HEMOGLOBIN CONC (BEAKER) (test 31.3 GM/DL 32.2-35.5 fhmq=007) RED CELL DISTRIBUTION WIDTH (BEAKER) (test 17.8 % 11.7-14.4 fqqa=313) PLATELET COUNT (BEAKER) (test vmqa=229) 92 K/CU MM 150-450 MEAN PLATELET VOLUME (BEAKER) (test xtxy=898) 10.3 fL 9.4-12.3 NUCLEATED RED BLOOD CELLS (BEAKER) (test 0 /100 WBC 0-0 aafh=279) NEUTROPHILS RELATIVE PERCENT (BEAKER) (test 81 % akad=653) LYMPHOCYTES RELATIVE PERCENT (BEAKER) (test 6 % yhbo=717) MONOCYTES RELATIVE PERCENT (BEAKER) (test 9 % trcq=164) EOSINOPHILS RELATIVE PERCENT (BEAKER) (test 3 % fqzr=842) BASOPHILS RELATIVE PERCENT (BEAKER) (test 1 % ggin=129) NEUTROPHILS ABSOLUTE COUNT (BEAKER) (test 4.23 K/ L 1.56-6.13 sbns=973) LYMPHOCYTES ABSOLUTE COUNT (BEAKER) (test 0.29 K/ L 1.18-3.74 jjwl=170) MONOCYTES ABSOLUTE COUNT (BEAKER) (test ltuo=175) 0.49 K/ L 0.24-0.36 EOSINOPHILS ABSOLUTE COUNT (BEAKER) (test 0.14 K/ L 0.04-0.36 yhfc=454) BASOPHILS ABSOLUTE COUNT (BEAKER) (test fgac=617) 0.06 K/ L 0.01-0.08 IMMATURE GRANULOCYTES-RELATIVE PERCENT (BEAKER) 0 % 0-1 (test hvdq=6883) COMPREHENSIVE METABOLIC [id number] 14:28:00 Test Item Value Reference Range Comments TOTAL PROTEIN (BEAKER) 7.6 gm/dL 6.0-8.3 (test etvz=962) ALBUMIN (BEAKER) (test 3.6 g/dL 3.5-5.0 kcmx=9975) ALKALINE PHOSPHATASE 144 U/L 40-150 (BEAKER) (test opnw=862) BILIRUBIN TOTAL (BEAKER) 1.1 mg/dL 0.2-1.2 (test oska=620) SODIUM (BEAKER) (test 135 meq/L 136-145 ketx=111) POTASSIUM (BEAKER) (test 3.6 meq/L 3.5-5.1 aldo=983) CHLORIDE (BEAKER) (test 103 meq/L 98-107 ojvz=978) CO2 (BEAKER) (test 22 meq/L 22-29 ktbe=227) BLOOD UREA NITROGEN 16 mg/dL 7-21 (BEAKER) (test jold=628) CREATININE (BEAKER) (test 1.82 mg/dL 0.57-1.25 ayih=889) GLUCOSE RANDOM (BEAKER) 102 mg/dL 70-105 (test ppsj=025) CALCIUM (BEAKER) (test 9.1 mg/dL 8.4-10.2 lhon=911) AST (SGOT) (BEAKER) (test 39 U/L 5-34 hvpy=659) ALT (SGPT) (BEAKER) (test 14 U/L 6-55 vevp=665) EGFR (BEAKER) (test 30 mL/min/1.73 sq m ESTIMATED GFR IS NOT ewqa=3887) ACCURATE CREATININE CLEARANCE IN PREDICTING GLOMERULAR FILTRATION RATE. ESTIMATED GFR IS NOT APPLICABLE FOR DIALYSIS PATIENTS. BILIRUBIN, [id number] 14:28:00 Test Item Value Reference Range Comments BILIRUBIN DIRECT (BEAKER) (test wlrl=290) 0.6 mg/dL 0.1-0.5 IRON, TIBC, % SAT. (WITHOUT FERRITIN)2017-11-27 14:26:00 Test Item Value Reference Range Comments IRON (BEAKER) (test tgoy=422) 37 ug/dL 40-160 TOTAL IRON BINDING CAPACITY (BEAKER) (test 219 ug/dL 250-450 mvnb=463) IRON % SATURATION (2) (BEAKER) (test nqbo=1388) 17 % 20-55 [id number] 14:25:00 Test Item Value Reference Range Comments ALPHA-1 ANTITRYPSIN (BEAKER) (test ccyo=171) 151.80 mg/dL 90.00-200.00 PROTHROMBIN [id number] 14:03:00 Test Item Value Reference Range Comments PROTIME (BEAKER) (test luzy=030) 17.2 seconds 11.7-14.7 INR (BEAKER) (test zrnz=347) 1.4 <=5.9 RECOMMENDED COUMADIN/WARFARIN INR THERAPY RANGESSTANDARD DOSE: 2.0 - 3.0 Includes: PROPHYLAXIS forvenous thrombosis, systemic embolization; TREATMENT for venous thrombosis and/or pulmonary embolus.HIGH RISK: Target INR is 2.5-3.5 for patients with mechanical heart valves.
--- OUTSIDE RECORDS SUMMARY | 2017-12-16 16:25 | XMS REPORT | Clinical Summary ---
:1970 Author Organization [facility] Address [address] [place] [address] Phone Care Team Providers Name Role Phone [...] test for immunity to both viruses - [facility] recommendations will follow. Portal hypertension (HCC) 11/27/2017 Last Assessment & Plan: Portal hypertension is evidenced by gastric and esophageal varices seen on EGD and CT scan 10/21/17 and splenomegaly. Encounters Date Type Specialty Care Team Description 12/06/2017 Documentation Transplant Hepatology Mona Newman RN 12/06/2017 Abstract Transplant Hepatology Mona Newman RN 11/28/2017 Abstract Transplant Hepatology Tim Riley MD 11/27/2017 Office Visit Hepatology Ugo Doss Alcoholic cirrhosis of MD Ant liver with ascites (HCC) (Primary Dx);Other ascites;Screening for malignant neoplasm;Immunity status testing;Portal hypertension (HCC) after 12/15/2016 Social History Tobacco Use Types Packs/Day Years [...] Treatment Date Type Specialty Care Team Description 01/02/2018 Office Visit Hepatology Ugo Doss MD [address] [facility] [address] [place] [address] Health Maintenance Due Date Last Done Comments INFLUENZA VACCINE 05/05/2018 Results Hepatitis A antibody, IgG (11/27/2017 1:34 PM) Component Value Ref Range Hep A IgG Nonreactive Nonreactive Specimen Performing Laboratory Blood [address] [address] Mitochondrial Antibodies, M2 (11/27/2017 1:34 PM) Component Value Ref Range Mitochondria M2 Ab <20.0 See Note: U Comment: Reference Range: NEGATIVE:< OR=20.0 EQUIVOCAL: 20.1-24.9 POSITIVE:> OR=25.0 Specimen Performing Laboratory Blood [facility] [address] [address] Narrative Performing Lab [facility] [address] [address] Lizette Cason MD, PhD, ABIMBOLA Iron, TIBC, % sat. (without ferritin) (11/27/2017 1:34 PM) Component Value Ref Range Iron 37 (L) 40 - 160 ug/dL TIBC 219 (L) 250 - 450 ug/dL Iron % Saturation 17 (L) 20 - 55 % Specimen Performing Laboratory Blood [address] [address] CBC with platelet count + automated diff [...] - 1 % Specimen Performing Laboratory Blood [address] [address] Hepatitis C antibody (11/27/2017 1:34 PM) Component Value Ref Range Hepatitis C Ab Nonreactive Nonreactive Specimen Performing Laboratory Blood [address] [address] Actin (Smooth Muscle) Antibody, IgG (11/27/2017 1:34 [...] Specimen Performing Laboratory Blood [facility] [address] [address] Narrative Performing Lab [facility] [address] [address] Lizette Cason MD, PhD, ABIMBOLA [id number] (11/27/2017 1:34 PM) Component Value Ref Range A-1 Antitrypsin 151.80 90.00 - 200.00 mg/dL Specimen Performing Laboratory Blood [address] [address] LÓPEZ Titer & Pattern (11/27/2017 1:34 PM) Component Value Ref Range LÓPEZ Titer 1:40 LÓPEZ Pattern Speckled Specimen Performing Laboratory Blood [address] [address] Ceruloplasmin (11/27/2017 1:34 PM) Component Value Ref Range Ceruloplasmin 25 18 - 53 mg/dL Comment: Adults:Males: 18-36 mg/dL Females: 18-53 mg/dL Pediatrics:Males (mg/dL)Females (mg/dL) 0-30 Days 8-25 3-28 31 Days-11 Month [id number] 1-3 [id number] 4-6 [id number] 7-9 [id number] 10-12 [id number] 13-15 [id number] 16-18 [id number] The pediatric ranges are derived from the following criteria: Yehuda SJ, Buck JM, Lorna J et al Pediatric reference ranges for Wkwc-8-Myihfeibajhra and ceruloplasmin. Clin. Chem 1997; 43:S1999 Pediatric Reference Ranges, 2nd., [place] Yehudaet al. editors. [employer], [place], [place] 1997. Specimen Performing Laboratory Blood [facility] [address] [place] [address] Narrative Performing Lab *S[facility], [address] [place] [address] Florencia Almanzar MD, PhD Alpha fetoprotein (AFP), tumor marker (11/27/2017 1:34 PM) Component Value Ref Range Alpha-Fetoprotein 4.9 <10.0 ng/mL Specimen Performing Laboratory Blood [address] [address] Hepatitis B core antibody, total (11/27/2017 1:34 PM) Component Value Ref Range Hep B Core Total Ab Nonreactive Nonreactive Specimen Performing Laboratory Blood [address] [address] Hepatitis B surface antibody (11/27/2017 1:34 PM) Component Value Ref Range Hep B S Ab <8.0 <8.0 mIU/mL Specimen Performing Laboratory Blood [address] [address] Hepatitis B surface antigen (11/27/2017 1:34 PM) Component Value Ref Range hepatitis B Surface Ag Nonreactive Nonreactive Specimen Performing Laboratory [address] [address] Pro-time/INR (11/27/2017 1:34 PM) Component Value Ref Range Protime 17.2 (H) 11.7 - 14.7 seconds INR 1.4 <=5.9 Specimen Performing Laboratory [address] [address] Narrative RECOMMENDED COUMADIN/WARFARIN INR THERAPY RANGES STANDARD [...] Status --------- ------ CBC with platelet count ...[[id number]]AbnormalFinal result Please view results for these tests on the individual orders. Anti-Nuclear Antibody (LÓPEZ) (11/27/2017 1:34 PM) Component Value Ref Range LÓPEZ Positive (A) Negative Specimen Performing Laboratory Blood [address] [address] Ferritin (11/27/2017 1:34 PM) Component Value Ref Range Ferritin 237 5 - 275 ng/mL Specimen Performing Laboratory Blood [address] [address] Bilirubin, direct (11/27/2017 1:34 PM) Component Value Ref Range Bilirubin, Direct 0.6 (H) 0.1 - 0.5 mg/dL Specimen Performing Laboratory Blood [address] [address] Comprehensive Metabolic Panel (11/27/2017 1:34 PM) Component [...] DIALYSIS PATIENTS. Specimen Performing Laboratory Blood [facility] [address] [address] after 12/15/2016
[2017-12-16] MEDS ORDERED: PROMETHAZINE 25 MG/ML VIAL ONE ×2 (17:21→19:14)
[2017-12-16] MEDS ORDERED: NA CHLORIDE 0.9% 500 ML ONE (17:22)
[2017-12-16] MEDS ORDERED: PANTOPRAZOLE 40 MG INJ ONE (17:22)
[2017-12-16] MEDS ORDERED: CEFTRIAXONE/SWI 1gm 1 GM/10 ML SYR ONE (17:23)
[2017-12-16] MEDS ORDERED: OCTREOTIDE ACETATE 100 MCG/ML ONE (17:23)
[2017-12-16 17:40] LABS: Absolute Lymphocytes (CBC) 0.2 K/uL (0.7-4.9); Absolute Monocytes 0.6 K/uL (0.1-1.3); Absolute Neutrophil 4.5 K/uL (1.8-8.0); Basophils % 2.5 % (0-1.3); Eosinophils % 0.6 % (0-4.4); Hematocrit 29.8 % (36.0-45.0); Lymphocytes % 3.6 % (15.3-44.8); MCV 101.7 fL (80-100); MPV 9.6 fL (7.6-11.3); Monocytes % 11.3 % (3.3-12.3); RBC Red Blood Cell Count 2.93 M/uL (3.86-4.86)
[2017-12-16 17:43] LABS: Potassium 4.6 mEq/L (3.6-5.0); Protime INR 1.18
[2017-12-16 17:51] LABS: Albumin 3.2 g/dL (3.2-5.5); Bilirubin Direct 0.5 mg/dL (0-0.2); Bilirubin Total 2.1 mg/dL (0.3-1.2); Protein, Total 7.4 g/dL (6.0-8.3)
--- NOTE | 2017-12-16 17:52 | P.HP ---
Certification for Inpatient Patient admitted to: Inpatient With expected LOS: >2 Midnights Patient will require the following post-hospital care: None Practitioner: I am a practitioner with admitting privileges, knowledge of patient current condition, hospital course, and medical plan of care. Services: Services provided to patient in accordance with Admission requirements found in Title 42 Section 412.3 of the Code of Federal Regulations Patient History Date of Service: 12/16/17 Primary Care Provider: None Reason for admission: Hematemesis History of Present Illness: This is a 47 y/o F patient who presented to the ED with complaints of hematemesis. Patient stated that she was not feeling well yesterday. Today had vomited pure blood about 4 times since this morning. Had bowel movement in ED and noted it to be black. Stated that she has history of esophageal varices from alcoholic cirrhosis of the liver. Stated that she has had banding of esophagus in past. Has not had any bleeding for several months. Feeling weak and dizzy. Initial HR of 142 in ED. No hypotension currently Allergies No Known Allergies Allergy (Verified 11/07/17 10:47) Home medications list reviewed: Yes Home Medications: Ondansetron HCl 1 tab PO Q12HP 10/20/17 Bumetanide [Bumex] 0.5 mg PO DAILY #30 tablet 10/22/17 Lactulose [Cephulac*] 30 ml PO Q6H #1 bottle 10/22/17 Midodrine HCl [Proamatine*] 5 mg PO BID #60 tab 10/22/17 Mupirocin Oint [Bactroban 2% Ointment*] 1 appl TOP BID #1 tube 10/22/17 Nadolol 0.5 tab PO DAILY #30 tablet 10/22/17 Pantoprazole [Protonix Tab*] 40 mg PO DAILY #30 tab 10/22/17 Potassium Chloride 20 meq PO DAILY 10/28/17 Sodium Bicarbonate 325 mg PO DAILY 10/28/17 Tramadol HCl [Ultram] 50 mg PO Q6H PRN 11/07/17 Ciprofloxacin HCl [Cipro 500 MG Tablet] 500 mg PO BID #14 tab 12/08/17 Thiamine HCl [Vitamin B-1*] 100 mg PO DAILY tablet 12/08/17 - Past Medical/Surgical History Has patient received pneumonia vaccine in the past: No Diabetic: No -: Alcoholic liver cirrhosis -: anemia -: Paracentesis -: Hernia repair - Family History Father -: Liver disease Notes: pt adopted, does not any history of her parents. - Social History Smoking Status: Light Tobacco smoker (1-9 cigarettes/day) Counseled patient to stop smoking for: less than 10 minutes Smoking therapy provided: Yes Patient receptive to therapy: Yes Alcohol use: Yes CD- Drugs: No Caffeine use: No Place of Residence: Home Review of Systems General: Unremarkable Eyes: Unremarkable ENT: Unremarkable Respiratory: Unremarkable Cardiovascular: Unremarkable Gastrointestinal: Nausea, Vomiting, Melena, Other (Hematemesis), As per HPI Genitourinary: Unremarkable Musculoskeletal: Unremarkable Integumentary: Unremarkable Neurological: Other (dizziness ) Lymphatics: Unremarkable Physical Examination - Vital Signs Temperature: 97.9 F Blood Pressure: 152/64 Pulse: 147 Respirations: 20 Pulse Ox (%): 97 - Physical Exam General: Alert, In no apparent distress, Oriented x3, Cooperative HEENT: Atraumatic, Normocephalic, PERRLA, Mucous membr. moist/pink, EOMI Neck: Supple, 2+ carotid pulse no bruit, JVD not distended, No Thyromegaly Respiratory: Clear to auscultation bilaterally, Normal air movement Cardiovascular: No edema, Normal pulses, Normal S1 S2, No gallops, No rubs, No murmurs, Other (Sinus Tachycardia present) Capillary refill: <2 Seconds Gastrointestinal: Normal bowel sounds, Soft and benign, Distended, Hepatomegaly , Ascites, Tenderness (Mild tenderness to epigastric region) Musculoskeletal: No clubbing, No swelling, No erythema, No tenderness, No warmth Integumentary: No rashes, No breakdown, No significant lesion Neurological: Normal speech, Normal strength at 5/5 x4 extr, Normal tone, Sensation intact, Cranial nerves 3-12 intact, Normal reflexes 2+, Normal affect Assessment and Plan - Problems (Diagnosis) (1) Ascites Onset Date: 10/21/17 Current Visit: No Status: Chronic Qualifiers: (2) Alcoholic cirrhosis Onset Date: 10/21/17 Current Visit: No Status: Chronic Qualifiers: (3) History of esophageal varices Current Visit: No Status: Chronic (4) Gastrointestinal hemorrhage Current Visit: Yes Status: Acute Plan: Patient has been put on octreotide and protonix drips. Nausea medicine given. Monitoring H/H. GI consulted for possible esophageal varices bleed. Qualifiers: GI bleed type/associated pathology: gastrointestinal hemorrhage with hematemesis Qualified Code(s): K92.0 - Hematemesis Discharge Plan: Home Plan to discharge in: Greater than 2 days - Advance Directives Does patient have a Living Will: No Does patient have a Durable POA for Healthcare: No - Code Status/Comfort Care Code Status Assessed: Yes Code Status: Full Code
[2017-12-16] MEDS: OCTREOTIDE 500 MCG in NA CHLORIDE 0.9% 500 ML IV SCH (18:00)
[2017-12-16] MEDS: PANTOPRAZOLE INJ 80 MG in NA CHLORIDE 0.9% 250 ML IV SCH (18:00)
--- NOTE | 2017-12-16 18:02 | EDPHYS ---
Physician Documentation [facility] Name: Amauri Miller Age: 47 yrs Sex: Female : 1970 Arrival Date: 12/16/2017 Time: 16:28 Bed 25 Private MD: ED Physician Tank Lee HPI: 12/16 17:57 This 47 yrs old Female presents to ER via Wheelchair with complaints of rn VOMITING BLOOD. 17:57 The patient presents to the emergency department vomiting blood, a moderate amount, rn coffee grounds in nature, with multiple such episodes. Onset: The symptoms/episode began/occurred this morning. Abdominal pain: none is appreciated. Associated signs and symptoms: Pertinent positives: vomiting. The patient has experienced similar episodes in the past. Reports nausea/vomiting since this morning, no fever, + coffee grounds, has hx of esophageal varices, not on blood thinners, + lightheaded, has seen Dr. Thomason and Dr. Leigh. . 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 N/A - Post-menopause ed1 Historical: - Allergies: 16:50 No Known Allergies; hb - Home Meds: 16:50 ciprofloxacin chl 500 mg once dialy for 30 days [Active]; folic acid 1 mg Oral tab 1 hb tab once daily [Active]; furosemide 40 mg Oral tab 1 tab once daily [Active]; lactulose 20 gram/30 mL Oral soln 30 mL 3 times per day [Active]; multivitamin with minerals Oral tab [Active]; nadolol 20 mg Oral tab 1 tab once daily [Active]; omeprazole 20 mg Oral cpDR 2 caps 2 times per day [Active]; potassium chloride 20 mEq Oral TbTQ 1 tab once daily [Active]; rifaximin 550 mg tab Oral 1 tab 2 times per day [Active]; sodium bicarbonate 650 mg Oral tab twice a day [Active]; ferrous sulfate 134 mg (27 mg iron) Oral tab [Active]; tramadol 50 mg Oral tab 1 tab every 6 hours [Active]; vitamin b1 [Active]; Vitamin B-6 Oral [Active]; Zofran (as hydrochloride) 4 mg Oral tab 2 tabs for one tab as needed [Active]; - PMHx: 16:50 Anemia; Cirrhosis; Hernia; second one, not repaired; possible htn; hb 16:50 esophageal varices; hb - Immunization history:: Adult Immunizations up to date. - Social history:: Smoking status: Patient/guardian denies using tobacco. - Family history:: not pertinent. - Hospitalizations: : No recent hospitalization is reported. ROS: 17:57 Constitutional: Negative for fever, chills, and weight loss, Eyes: Negative for injury, rn pain, redness, and discharge, Cardiovascular: Negative for chest pain, palpitations, and edema, Respiratory: Negative for shortness of breath, cough, wheezing, and pleuritic chest pain, Abdomen/GI: Negative for abdominal pain, diarrhea, and constipation, Back: Negative for injury and pain, MS/Extremity: Negative for injury and deformity, Skin: Negative for injury, rash, and discoloration, Neuro: Negative for headache, numbness, tingling, and seizure. Exam: 17:57 Constitutional: This is a well developed, well nourished patient who is awake, alert, rn + holding emesis bag Head/Face: Normocephalic, atraumatic. Eyes: Pupils equal round and reactive to light, extra-ocular motions intact. Lids and lashes normal. Conjunctiva and sclera are non-icteric and not injected. Cornea within normal limits. Periorbital areas with no swelling, redness, or edema. Neck: Trachea midline, no thyromegaly or masses palpated, and no cervical lymphadenopathy. Supple, full range of motion without nuchal rigidity, or vertebral point tenderness. No Meningismus. Cardiovascular: tachycardic, regular, no murmur Respiratory: Lungs have equal breath sounds bilaterally, clear to auscultation and percussion. No rales, rhonchi or wheezes noted. No increased work of breathing, no retractions or nasal flaring. Abdomen/GI: Soft, non-tender, with normal bowel sounds. No distension or tympany. No guarding or rebound. No evidence of tenderness throughout. MS/ Extremity: Pulses equal, no cyanosis. Neurovascular intact. Full, normal range of motion. Equal circumference. Neuro: Awake and alert, GCS 15, oriented to person, place, time, and situation. Cranial nerves II-XII grossly intact. Motor strength 5/5 in all extremities. Sensory grossly intact. Cerebellar exam normal. Normal gait. Vital Signs: 16:48 BP 102 / 64; Pulse 142; Resp 20; Temp 97.7(TE); Pulse Ox 97% on R/A; Weight 58.97 kg; hb Height 5 ft. 6 in. (167.64 cm); Pain 10/10; 17:55 BP 116 / 91; Pulse 112; Resp 20; Pulse Ox 100% on R/A; Pain 10/10; ed1 18:38 BP 111 / 78; Pulse 126; Resp 20; Pulse Ox 100% on R/A; Pain 9/10; ed1 19:33 BP 91 / 67; Pulse 130; Resp 18; Temp 98.3(TE); Pulse Ox 100% on R/A; Pain 8/10; ed1 16:48 Body Mass Index 20.98 (58.97 kg, 167.64 cm) hb MDM: 16:53 Patient medically screened. rn 17:57 Differential diagnosis: gastritis, varices. 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 Counseling: I had a detailed discussion with the patient and/or guardian regarding: the historical points, exam findings, and any diagnostic results supporting the discharge/admit diagnosis, lab results, the need for further work-up and treatment in the hospital. Response to treatment: the patient's symptoms have mildly improved after treatment, and as a result, I will admit patient. Admission orders: after a detailed discussion of the patient's condition and case, the admit orders are written by me. ED course: Admitted for UGIB, improving vitals, no indication for emergent transfer. . 12/16 17:05 Order name: Basic Metabolic Panel rn 12/16 17:05 Order name: CBC with Diff rn 12/16 17:05 Order name: Hepatic Function; Complete Time: 18:02 rn 12/16 17:05 Order name: Lipase; Complete Time: 18:02 rn 12/16 17:05 Order name: Urine Microscopic Only; Complete Time: 19:12 12/16 17:05 Order name: PT-INR; Complete Time: 17:57 12/16 17:05 Order name: Ptt, Activated; Complete Time: 17:57 12/16 17:05 Order name: Basic Metabolic Panel; Complete Time: 18:02 EDIA 12/16 17:05 Order name: CBC with Automated Diff; Complete Time: 17:57 EDIA 12/16 17:05 Order name: Troponin (emerg Dept Use Only); Complete Time: 19:12 rn 12/16 18:13 Order name: Urine Dipstick--Ancillary (enter results) bd 12/16 18:13 Order name: Urine --Ancillary (enter results) bd 12/16 18:14 Order name: Urine --Ancillary; Complete Time: 19:12 EDMS 12/16 18:14 Order name: Urine Dipstick-Ancillary; Complete Time: 19:12 EDMS 12/16 17:05 Order name: IV Saline Lock; Complete Time: 17:43 rn 12/16 17:05 Order name: Labs collected and sent; Complete Time: 17:43 rn 12/16 17:05 Order name: Urine Dipstick-Ancillary (obtain specimen); Complete Time: 17:43 rn 12/16 17:05 Order name: Urine Test (obtain specimen); Complete Time: 17:43 rn 12/16 17:05 Order name: EKG; Complete Time: 17:06 rn 12/16 17:05 Order name: EKG - Nurse/Tech; Complete Time: 17:59 rn Administered Medications: 17:39 Drug: NS 0.9% 500 ml Route: IV; Rate: bolus; Site: left forearm; aa5 18:39 Follow up: IV Status: Completed infusion; IV Intake: 500ml ed1 17:39 Drug: Rocephin - (cefTRIAXone) 1 grams Route: IVPB; Infused Over: 30 mins; Site: left aa5 forearm; 18:39 Follow up: Response: No adverse reaction; IV Status: Completed infusion ed1 17:39 Drug: Phenergan 25 mg Route: IVP; Site: left forearm; aa5 18:39 Follow up: Response: No adverse reaction; Nausea unchanged ed1 17:40 Drug: ProTONIX 40 mg Route: IVP; Site: left forearm; aa5 18:40 Follow up: Response: No adverse reaction ed1 17:40 Drug: Octreotide 50 mcg Route: IV; Rate: calculated rate; Site: left forearm; aa5 18:39 Follow up: Response: No adverse reaction; IV Status: Completed infusion ed1 18:28 Drug: Octreotide Infusion (50 mcg/hr) - (Octreotide 500 mcg, NS 0.9% 500 ml) Route: IV; ed1 Rate: 50 ml/hr; Site: left forearm; 19:51 Follow up: IV Status: Infusion continued upon admission ed1 18:37 Drug: ProTONIX 8 mg/hr Route: IV; Rate: 25 ml/hr; Site: left hand; ed1 19:51 Follow up: IV Status: Infusion continued upon admission ed1 19:18 Drug: Phenergan 25 mg Route: IVP; Site: left forearm; ed1 19:50 Follow up: Response: Nausea is decreased ed1 Disposition: 12/16/17 18:02 Hospitalization ordered by Rosie Kenney for Inpatient Admission. Preliminary diagnosis are Hematemesis, Unspecified cirrhosis of liver, Esophageal varices with bleeding. - Bed requested for Telemetry/MedSurg (Inpatient). - Status is Inpatient Admission. ed1 - Condition is Stable. - Problem is new. - Symptoms have improved. UTI on Admission? No Signatures: Dispatcher [employer] EDMS Josi Ruiz RN RN Tank Lee MD MD rn Calderon, Audri, RN RN aa5 Darlene Topete LVN [employer] ADMINISTRATOR ed1 Lucy Sellers RN RN Corrections: (The following items were deleted from the chart) 19:29 18:02 Hospitalization Ordered by Rosie Kenney MD for Inpatient Admission. Preliminary mw diagnosis is Hematemesis; Unspecified cirrhosis of liver; Esophageal varices with bleeding. Bed requested for Telemetry/MedSurg (Inpatient). Status is Inpatient Admission. Condition is Stable. Problem is new. Symptoms have improved. UTI on Admission? No. rn 20:24 19:29 12/16/2017 18:02 Hospitalization Ordered by Rosie Kenney MD for Inpatient ed1 Admission. Preliminary diagnosis is Hematemesis; Unspecified cirrhosis of liver; Esophageal varices with bleeding. Bed requested for Telemetry/MedSurg (Inpatient). Status is Inpatient Admission. Condition is Stable. Problem is new. Symptoms have improved. UTI on Admission? No. mw
--- NOTE | 2017-12-16 18:02 | ER ---
Nurse's Notes [facility] Name: Amauri Miller Age: 47 yrs Sex: Female : 1970 Arrival Date: 12/16/2017 Time: 16:28 Bed 25 Private MD: Diagnosis: Hematemesis;Unspecified cirrhosis of liver;Esophageal varices with bleeding Presentation: 12/16 16:46 Presenting complaint: Patient states: Upper abdominal pain and vomiting dark blood hb since this morning. Hx esophageal varices. Transition of care: patient was not received from another setting of care. Onset of symptoms was December 16, 2017. 16:46 Method Of Arrival: Wheelchair hb 16:46 Acuity: CASI 2 hb 16:51 Initial Sepsis Screen: Does the patient meet any 2 criteria? Systolic BP < 90 mmHg. HR ed1 > 90 bpm. Yes Does the patient have a suspected source of infection? No. Patient's initial sepsis screen is negative. Care prior to arrival: None. RN PSYCHIATRIC: 19:35 LMP N/A - Post-menopause ed1 Historical: - Allergies: 16:50 No Known Allergies; hb - Home Meds: 16:50 ciprofloxacin chl 500 mg once dialy for 30 days [Active]; folic acid 1 mg Oral tab 1 hb tab once daily [Active]; furosemide 40 mg Oral tab 1 tab once daily [Active]; lactulose 20 gram/30 mL Oral soln 30 mL 3 times per day [Active]; multivitamin with minerals Oral tab [Active]; nadolol 20 mg Oral tab 1 tab once daily [Active]; omeprazole 20 mg Oral cpDR 2 caps 2 times per day [Active]; potassium chloride 20 mEq Oral TbTQ 1 tab once daily [Active]; rifaximin 550 mg tab Oral 1 tab 2 times per day [Active]; sodium bicarbonate 650 mg Oral tab twice a day [Active]; ferrous sulfate 134 mg (27 mg iron) Oral tab [Active]; tramadol 50 mg Oral tab 1 tab every 6 hours [Active]; vitamin b1 [Active]; Vitamin B-6 Oral [Active]; Zofran (as hydrochloride) 4 mg Oral tab 2 tabs for one tab as needed [Active]; - PMHx: 16:50 Anemia; Cirrhosis; Hernia; second one, not repaired; possible htn; hb 16:50 esophageal varices; hb - Immunization history:: Adult Immunizations up to date. - Social history:: Smoking status: Patient/guardian denies using tobacco. - Family history:: not pertinent. - Hospitalizations: : No recent hospitalization is reported. Screenin:51 Abuse screen: Denies threats or abuse. Denies injuries from another. Nutritional ed1 screening: No deficits noted. Tuberculosis screening: No symptoms or risk factors identified. Fall Risk None identified. Assessment: 16:51 General: Appears uncomfortable, Behavior is calm, cooperative. Pain: Complains of pain ed1 in abdomen Pain does not radiate. Pain currently is 10 out of 10 on a pain scale. Quality of pain is described as stabbing, Pain began 4 hours ago. Is continuous. Neuro: Level of Consciousness is awake, alert, obeys commands, Oriented to person, place, time, situation. Cardiovascular: Denies chest pain, Heart tones S1 S2 present. Respiratory: Airway is patent Respiratory effort is even, unlabored, Respiratory pattern is regular, symmetrical, Breath sounds are clear bilaterally. GI: Abdomen is distended, Pt is actively vomiting bright red blood, Bowel sounds present X 4 quads. Reports nausea, vomiting, Patient currently denies diarrhea. : No signs and/or symptoms were reported regarding the genitourinary system. EENT: No signs and/or symptoms were reported regarding the EENT system. Derm: Skin is intact, is fragile, is thin, Skin is dry, Skin is normal, Skin temperature is warm. Musculoskeletal: Circulation, motion, and sensation intact. Capillary refill < 3 seconds, in bilateral fingers. 16:51 Reassessment: I agree with assessment completed by BRIGITTE Colon . aa5 18:38 Reassessment: Patient appears in no apparent distress at this time. No changes from ed1 previously documented assessment. Patient and/or family updated on plan of care and expected duration. Pain level reassessed. Patient is alert, oriented x 3, equal unlabored respirations, skin warm/dry/pink. Patient states symptoms have not improved. Vital Signs: 16:48 BP 102 / 64; Pulse 142; Resp 20; Temp 97.7(TE); Pulse Ox 97% on R/A; Weight 58.97 kg; hb Height 5 ft. 6 in. (167.64 cm); Pain 10/10; 17:55 BP 116 / 91; Pulse 112; Resp 20; Pulse Ox 100% on R/A; Pain 10/10; ed1 18:38 BP 111 / 78; Pulse 126; Resp 20; Pulse Ox 100% on R/A; Pain 9/10; ed1 19:33 BP 91 / 67; Pulse 130; Resp 18; Temp 98.3(TE); Pulse Ox 100% on R/A; Pain 8/10; ed1 16:48 Body Mass Index 20.98 (58.97 kg, 167.64 cm) hb ED Course: 16:28 Patient arrived in ED. mr 16:48 Triage completed. hb 16:48 Arm band placed on right wrist. hb 16:51 Patient has correct armband on for positive identification. ed1 16:52 Darlene Topete LVN is Primary Nurse. ed1 16:53 Tank Lee MD is Attending Physician. rn 17:15 Urine collected: clean catch specimen, clear. dh3 17:31 Initial lab(s) drawn, by me, sent to lab. T\T\S collected, blood band applied to patient. dh3 Inserted saline lock: 22 gauge in left antecubital area, using aseptic technique. Blood collected. 17:43 Inserted saline lock: 22 gauge in left forearm, using aseptic technique. Blood dh3 collected. 18:01 Rosie Kenney MD is Hospitalizing Provider. rn 18:36 Inserted saline lock: 22 gauge in left hand, using aseptic technique. dh3 19:35 No provider procedures requiring assistance completed. Patient admitted, IV remains in ed1 place. intact, No redness/swelling at site. Administered Medications: 17:39 Drug: NS 0.9% 500 ml Route: IV; Rate: bolus; Site: left forearm; aa5 18:39 Follow up: IV Status: Completed infusion; IV Intake: 500ml ed1 17:39 Drug: Rocephin - (cefTRIAXone) 1 grams Route: IVPB; Infused Over: 30 mins; Site: left aa5 forearm; 18:39 Follow up: Response: No adverse reaction; IV Status: Completed infusion ed1 17:39 Drug: Phenergan 25 mg Route: IVP; Site: left forearm; aa5 18:39 Follow up: Response: No adverse reaction; Nausea unchanged ed1 17:40 Drug: ProTONIX 40 mg Route: IVP; Site: left forearm; aa5 18:40 Follow up: Response: No adverse reaction ed1 17:40 Drug: Octreotide 50 mcg Route: IV; Rate: calculated rate; Site: left forearm; aa5 18:39 Follow up: Response: No adverse reaction; IV Status: Completed infusion ed1 18:28 Drug: Octreotide Infusion (50 mcg/hr) - (Octreotide 500 mcg, NS 0.9% 500 ml) Route: IV; ed1 Rate: 50 ml/hr; Site: left forearm; 19:51 Follow up: IV Status: Infusion continued upon admission ed1 18:37 Drug: ProTONIX 8 mg/hr Route: IV; Rate: 25 ml/hr; Site: left hand; ed1 19:51 Follow up: IV Status: Infusion continued upon admission ed1 19:18 Drug: Phenergan 25 mg Route: IVP; Site: left forearm; ed1 19:50 Follow up: Response: Nausea is decreased ed1 Intake: 18:39 IV: 500ml; Total: 500ml. ed1 Output: 17:55 Gastric: 250ml (Emesis); Total: 250ml. ed1 Outcome: 18:02 Decision to Hospitalize by Provider. rn 19:36 Admitted to Med/surg accompanied by tech, family with patient, via stretcher, room 211, ed1 Report called to KIMBERLY Rodas 19:36 Condition: stable 19:36 Discharge instructions given to patient, family, Instructed on the need for admit. 20:24 Patient left the ED. ed1 Signatures: Yasmeen Pacheco Roman, MD MD rn Calderon, Audri, RN RN aa5 Darlene Topete, GLOVE CUFFER GLOVE CUFFER ed1 Lucy Sellers RN RN hb Herrera, Deanna 3 Corrections: (The following items were deleted from the chart) 19:47 19:36 Admitted to Med/surg accompanied by tech, family with patient, via stretcher, ed1 room 211, with chart, Report called to KIMBERLY Barakat ed1
[2017-12-16 18:14] LABS: Urine Blood NEGATIVE (NEG); Urine Glucose NEGATIVE (NEG); Urine Protein 1+ (NEG); Urine Specific Gravity 1.015 (1.005-1.030)
[2017-12-16 18:27] LABS: Urine Bacteria <20 /HPF (<20); Urine Culture Reflex Order NOT NEEDED; Urine RBC <5 /HPF (NONE SEEN)
[2017-12-16 20:45] VITALS: BMI 18.3
--- NOTE | 2017-12-16 20:58 | EKG ---
Test Date: 2017-12-16 Test Time: 17:26:11 Collections Technician: HANK MEASUREMENT RESULTS: Intervals: Rate: 117 OR: 142 QRSD: 78 QT: 320 QTc: 446 [place]: P: 65 OR: 142 QRS: 66 T: 69 INTERPRETIVE STATEMENTS: Sinus tachycardia Otherwise normal ECG Compared to ECG 12/05/2017 05:47:14 Sinus rhythm no longer present Myocardial infarct finding no longer present Electronically Signed On 12-16-17 20:57:36 CDT by Marek Mccarthy
[2017-12-16] MEDS ORDERED: MORPHINE 4 MG/ML SYR IV PRN (22:04)
[2017-12-16] MEDS ORDERED: PROMETHAZINE 25 MG/ML VIAL IV PRN (22:04)
[2017-12-16] MEDS ORDERED: MORPHINE 4 MG/ML SYR ONE (22:42)
[2017-12-16] MEDS: NA CHLORIDE 0.9% 1,000 ML IV SCH (22:53)
[2017-12-16] MEDS ORDERED: MORPHINE 2 MG/ML SYR IV PRN (23:00)
[2017-12-17] MEDS: PANTOPRAZOLE INJ 80 MG in NA CHLORIDE 0.9% 250 ML IV SCH ×2 (04:00→13:58)
[2017-12-17] MEDS: OCTREOTIDE 500 MCG in NA CHLORIDE 0.9% 500 ML IV SCH ×2 (04:00→13:58)
[2017-12-17] MEDS ORDERED: PANTOPRAZOLE 40 MG INJ ONE (04:48)
[2017-12-17] MEDS ORDERED: NA CHLORIDE 0.9% 250 ML ONE (04:49)
[2017-12-17] MEDS ORDERED: NA CHLORIDE 0.9% 500 ML ONE (04:50)
[2017-12-17] MEDS ORDERED: OCTREOTIDE ACETATE 500 MCG/ML ONE (04:56)
[2017-12-17] MEDS ORDERED: MORPHINE 4 MG/ML SYR ONE (04:57)
[2017-12-17] MEDS: NA CHLORIDE 0.9% 1,000 ML IV SCH (05:11)
[2017-12-17 05:26] LABS: Absolute Lymphocytes (CBC) 0.4 K/uL (0.7-4.9); Absolute Monocytes 0.7 K/uL (0.1-1.3); Absolute Neutrophil 3.7 K/uL (1.8-8.0); Basophils % 3.4 % (0-1.3); Eosinophils % 3.4 % (0-4.4); Hematocrit 23.8 % (36.0-45.0); Lymphocytes % 7.2 % (15.3-44.8); MCH 33.9 pg (27.0-35.0); MCV 103.2 fL (80-100); MPV 9.9 fL (7.6-11.3); Monocytes % 13.1 % (3.3-12.3)
[2017-12-17 05:40] LABS: Albumin 2.6 g/dL (3.2-5.5); Bilirubin Direct 0.4 mg/dL (0-0.2); Bilirubin Total 1.2 mg/dL (0.3-1.2)
[2017-12-17 05:57] LABS: Blood Morphology Comment NOT SEEN (NOT SEEN); Platelet Estimate DECR; Urine White Blood Cell Casts OK
[2017-12-17] MEDS ORDERED: Morphine 2 MG/2 ML SYR IV PRN (07:14)
--- NOTE | 2017-12-17 11:51 | P.PN ---
Subjective Date of Service: 12/17/17 Primary Care Provider: None Chief Complaint: Hematemesis Pt seen and examined at bedside. Case D/W GI. Will be by today to evaluate the pt. Pt usually seen by Dr Leigh who is unavailable at this time. Dr Solis contacted and will see the pt here. No complains of pain. Review of Systems General: As per HPI Physical Examination - Vital Signs Temperature: 98.2 F Blood Pressure: 106/57 Pulse: 112 Respirations: 18 Pulse Ox (%): 97 - Physical Exam General: Alert, In no apparent distress HEENT: Atraumatic, PERRLA, EOMI Neck: Supple, JVD not distended Respiratory: Clear to auscultation bilaterally, Normal air movement Cardiovascular: Regular rate/rhythm, Normal S1 S2 Gastrointestinal: Normal bowel sounds, No tenderness, Other (Area of abd with fluid drainage. Most likley ascitic fluids), Ascites Musculoskeletal: No tenderness Integumentary: No rashes Neurological: Normal speech, Normal tone, Normal affect Lymphatics: No axilla or inguinal lymphadenopathy - Studies Laboratory Data (last 24 hrs) 12/16/17 17:21: PT 13.9 H, INR 1.18, APTT 30.0 12/16/17 17:21: WBC 5.5 D, Hgb 9.7 L, Hct 29.8 L, Plt Count 142 L 12/16/17 17:21: Sodium 128 L, Potassium 4.6, BUN 37 H D, Creatinine 1.76 H, Glucose 119, Total Bilirubin 2.1 H, AST 88 H, ALT 27, Alkaline Phosphatase 114, Lipase 37 Medications List Reviewed: Yes Assessment & Plan - Problems (Diagnosis) (1) Gastrointestinal hemorrhage Onset Date: 12/17/17 Current Visit: Yes Status: Acute Plan: H/o of GI bleed now again with Hematemesis. -GI consulted. Awaiting reccs -H/H q6h -IV protonix and octerotide -IV fluids at 75ml.hr -NPO for now Qualifiers: GI bleed type/associated pathology: gastrointestinal hemorrhage with hematemesis Qualified Code(s): K92.0 - Hematemesis (2) History of esophageal varices Current Visit: No Status: Chronic Plan: H/o Varices due to chronic alcoholic Cirrhosis -IV protonix, Octreotide for now -BB and Rifaxmin started (3) Alcoholic cirrhosis Onset Date: 10/21/17 Current Visit: No Status: Chronic Qualifiers: Ascites presence: with ascites Qualified Code(s): K70.31 - Alcoholic cirrhosis of liver with ascites (4) Ascites Onset Date: 10/21/17 Current Visit: No Status: Chronic Qualifiers: Ascites type: due to alcoholic cirrhosis Qualified Code(s): K70.31 - Alcoholic cirrhosis of liver with ascites (5) GERD (gastroesophageal reflux disease) Onset Date: 10/21/17 Current Visit: No Status: Chronic Qualifiers: Esophagitis presence: with esophagitis Qualified Code(s): K21.0 - Gastro- esophageal reflux disease with esophagitis (6) Marijuana abuse Onset Date: 12/09/17 Current Visit: No Status: Acute (7) Nicotine dependence Onset Date: 12/09/17 Current Visit: No Status: Acute Qualifiers: Nicotine product type: cigarettes Substance use status: unspecified nicotine-induced disorder Qualified Code(s): F17.219 - Nicotine dependence, cigarettes, with unspecified nicotine-induced disorders Discharge Plan: Home Plan to discharge in: 48 Hours - Code Status/Comfort Care Code Status Assessed: Yes Critical Care: No
--- NOTE | 2017-12-17 12:16 | RAD REPORT ---
EXAM DESCRIPTION: CT - Abdomen Pelvis Wo Contrast - 12/17/2017 11:52 am CLINICAL HISTORY: Abdominal pain, ascites, draining wound anterior abdominal wall COMPARISON: Ultrasound study December 05, CT imaging December 05 TECHNIQUE: Axial [address] imaging of the abdomen and pelvis was performed without IV contrast. No IV contrast was given because of allergy, abnormal renal function, patient refusal or physician re quest. Oral contrast was given. All CT scans are performed using dose optimization technique as appropriate and may include automated exposure control or mA/KV adjustment according to patient size. FINDINGS: No suspicious findings in the lung bases. Prominent liver capsule nodularity and enlargement of the left lobe are similar to prior imaging. No new liver parenchymal lesion on noncontrast imaging. Spleen and pancreas are stable. Sludge or possib le some contrast present within the lumen of the gallbladder. Two small stones are present. No new ga llbladder process. No biliary tree dilatation. No hydronephrosis or suspicious renal mass. No significant adrenal finding. Isodense renal masses an d pyelonephritis cannot be excluded in the absence of IV contrast. The urinary bladder is without sig nificant finding. Calero of the stomach are mildly prominent. No discrete gastric wall mass or pneumatosis. Stomach is n ot substantially different from comparison. Small bowel loops are not dilated. No focal colon process seen. Calero of the decompressed colon are mildly prominent. This could be artifact. Mild edema from diminished liver function could be possible. This is not seen as an acute process. There is left-side d diverticulosis. No free air or pneumatosis. No bulky lymphadenopathy or omental thickening. Moderate ascites is seen adjacent to the liver with a mild amount of ascites adjacent to the spleen. Small amount of free fluid is pooling in the dependent portion of the pelvis. The patient has 13 cent imeter TR x 2 centimeter AP x 5 centimeter CC fluid collection in the subcutaneous fatty tissues supe rior and left lateral to the umbilicus. Patient has a known draining wound. The subcutaneous fluid co llection is smaller than seen December 05. It is uncertain if this is fluid accumulating within a small v entral hernia or subcutaneous fluid collection due to a draining wound between the skin and abdominal wall. No air within this fluid collection. No thickened rim or rind. No intraperitoneal walled off or drainable fluid collections seen to suspect intraperitoneal abscess. Vascular calcifications and bony degenerative changes again noted. IMPRESSION: Moderate ascites immediately adjacent to the cirrhotic liver. Small amounts of ascites a re present in the dependent portion of the pelvis and adjacent to the spleen. Fluid collection in the subcutaneous fatty tissues of the anterior abdomen has diminished in size sin ce December 05. This may be fluid accumulation as part of a ventral hernia or could be subcutaneous accum ulation of a draining abdominal wall wound. No thickened wall or rind in the subcutaneous fluid collection and no air. No CT finding to elevate p robability of abscess in the subcutaneous fatty tissues. No peritoneal collection suspicious for abscess. Prominent gallbladder with known gallstones. An acute gallbladder process is doubtful. Full assessment is limited is the absence of IV contrast.
[2017-12-17] MEDS: ACETAMINOPHEN 500 MG TAB PO PRN (13:32)
--- NOTE | 2017-12-17 19:22 | CON ---
Date of Consultation: 12/17/2017 A 47-year-old female, 211. Reason For Consultation: 1.Hematemesis with known history of cirrhosis. 2.Persistent use of alcohol. History Of Present Illness: Ms. Miller is a 47-year-old female, who developed alcoholic cirrhosis for a while. She states that stopped alcohol for a while; however, has reported back to alcohol. Last dr danae was Saturday. After that, she started having nausea, vomiting, and eventually started vomiting blo od. She felt weak and dizzy and also specially symptoms got worse when she stood up. As a result, s he came to the hospital. Today she did not have any further hematemesis, however, stool is still dark. Denies any odynophagia dysphagia. Denies any abdominal pain. Weakness is also there, but is better. Past Medical History: As elaborated above. In addition to hypertension. Past Surgical History: Not related to above. Family History: Denies any gastrointestinal malignancy in the family. Social History: Still continues to drink alcohol as above. Positive tobacco. Psychiatric History: None. Allergies: REVIEWED IN THE CHART. Medications: Reviewed in the chart. Review of Systems: General: No fever, chills. No weight loss, weight gain. Appetite is good. GI: As elaborated above. Hepatologic: As elaborated above, however, no other history of other form of hepatitis, especially i nfectious variety. Pulmonary: No shortness of breath, cough, or expectoration. Cardiac: Palpitation is resolved. No orthopnea, dyspnea. Genitourinary: No complaint. Musculoskeletal: Generalized weakness. Dermatologic: No pruritus. No new lesion. Neuroendocrine: None. Neuropsychiatric: None. Physical Examination: General: Young female, thin build, with prominent abdomen. No other acute distress noted. Hemodyna will respiratory profile within normal range. HEENT: Atraumatic, normocephalic. Positive pallor. Some bitemporal wasting. Facial area appears t o be within normal range. Neck: Supple. No lymph lymphadenopathy. Trachea central in position. Pharyngeal anatomy type 2. Chest: Clear to auscultation and percussion. Cardiovascular: Normal S1, S2. No S3, no S4. Abdomen: Soft, mildly distended. Mild ascites. No hepatomegaly, no splenomegaly. No succussion sp lash. No rebound tenderness. Bowel sounds are excellent. neurologic: alert and oriented x3. Intact memory, mentation, and judgment. No asterixis. No flapp ing tremor. Dermatologic: Upper and lower extremities are wasted, but symmetric. No pitting edema noted. Diagnostic Data: Reviewed and analyzed. Hemoglobin and hematocrit, initial 7.[address] scan trell ws ascites, consistent with cirrhosis. Impression, Plan, And Recommendation: Ms. Miller is a 47-year-old female with recurrent alcohol and alc oholic cirrhosis. She also has ascites, other evidence of portal hypertension. Given the hematemesi s at this time, variceal bleeding will be #1 concern however and up to 40% of cases, it could be due to peptic ulcer disease. She is hungry. We will start her on liquid diet and will prepare her for a n EGD. In the meanwhile, continue on proton pump inhibitor and octreotide and also on nadolol. I have had a long discussion with her regarding the indications, contraindications, possible complica tions, alternatives, all of the above, especially endoscopy, and risk of anesthesia including rare fatalities. She has good understa nding. She is agreeable. MIHIR/HILARIO Voice ID: [id number] Report ID: [id number]
[2017-12-17] MEDS: SODIUM BICARB 325 MG TAB PO SCH (20:17)
[2017-12-17] MEDS ORDERED: Rifaximin 550 MG Tab PO SCH (21:00)
[2017-12-18] MEDS: NA CHLORIDE 0.9% 1,000 ML IV SCH ×3 (00:44→20:37)
[2017-12-18] MEDS ORDERED: NA CHLORIDE 0.9% 250 ML ONE ×2 (02:17→14:25)
[2017-12-18] MEDS: OCTREOTIDE 500 MCG in NA CHLORIDE 0.9% 500 ML IV SCH ×3 (03:03→20:35)
[2017-12-18] MEDS: PANTOPRAZOLE INJ 80 MG in NA CHLORIDE 0.9% 250 ML IV SCH ×3 (03:03→20:35)
[2017-12-18 06:31] LABS: Hematocrit 28.2 % (36.0-45.0)
[2017-12-18] MEDS: NADOLOL 40 MG TAB PO SCH (09:44)
[2017-12-18] MEDS: THIAMINE HCL 100 MG TABLET PO SCH (09:45)
[2017-12-18] MEDS: FOLIC ACID 1 MG TABLET PO SCH (09:45)
[2017-12-18] MEDS: ACETAMINOPHEN 500 MG TAB PO PRN ×2 (09:59→16:36)
[2017-12-18] MEDS: MULTIVIT W/ MINERAL TAB PO SCH (09:59)
[2017-12-18] MEDS: SODIUM BICARB 325 MG TAB PO SCH ×2 (10:00→20:34)
--- NOTE | 2017-12-18 11:02 | P.PN ---
Subjective Date of Service: 12/18/17 Primary Care Provider: None Chief Complaint: Hematemesis Pt seen and examined at bedside. Case D/W GI. Pt usually seen by Dr Leigh who is unavailable at this time. EGD scheduled with Dr Soils today. Complains of being hungry and wants to know when her EGD will be done. Review of Systems General: As per HPI Physical Examination - Vital Signs Temperature: 98.5 F Blood Pressure: 90/62 Pulse: 90 Respirations: 18 Pulse Ox (%): 99 - Physical Exam General: Alert, In no apparent distress HEENT: Atraumatic, PERRLA, EOMI Neck: Supple, JVD not distended Respiratory: Clear to auscultation bilaterally, Normal air movement Cardiovascular: Regular rate/rhythm, Normal S1 S2 Gastrointestinal: Normal bowel sounds, No tenderness Musculoskeletal: No tenderness Integumentary: No rashes Neurological: Normal speech, Normal tone, Normal affect Lymphatics: No axilla or inguinal lymphadenopathy - Studies Medications List Reviewed: Yes Assessment & Plan - Problems (Diagnosis) (1) Gastrointestinal hemorrhage Onset Date: 12/17/17 Current Visit: Yes Status: Acute Plan: H/o of GI bleed now again with Hematemesis. -GI consulted. Reccs appreciated -EGD scheduled for today -H/H q6h -IV protonix and octerotide -IV fluids at 100ml.hr -NPO for now Qualifiers: GI bleed type/associated pathology: gastrointestinal hemorrhage with hematemesis Qualified Code(s): K92.0 - Hematemesis (2) History of esophageal varices Current Visit: No Status: Chronic Plan: H/o Varices due to chronic alcoholic Cirrhosis -IV protonix, Octreotide for now -BB and Rifaxmin started (3) Alcoholic cirrhosis Onset Date: 10/21/17 Current Visit: No Status: Chronic Qualifiers: Ascites presence: with ascites Qualified Code(s): K70.31 - Alcoholic cirrhosis of liver with ascites (4) Ascites Onset Date: 10/21/17 Current Visit: No Status: Chronic Plan: Pt had small leak in the abdomen yesterday. -CT ABD with small. No changes from before. -Will observe for now Qualifiers: Ascites type: due to alcoholic cirrhosis Qualified Code(s): K70.31 - Alcoholic cirrhosis of liver with ascites (5) GERD (gastroesophageal reflux disease) Onset Date: 10/21/17 Current Visit: No Status: Chronic Qualifiers: Esophagitis presence: with esophagitis Qualified Code(s): K21.0 - Gastro- esophageal reflux disease with esophagitis (6) Marijuana abuse Onset Date: 12/09/17 Current Visit: No Status: Acute (7) Nicotine dependence Onset Date: 12/09/17 Current Visit: No Status: Acute Qualifiers: Nicotine product type: cigarettes Substance use status: unspecified nicotine-induced disorder Qualified Code(s): F17.219 - Nicotine dependence, cigarettes, with unspecified nicotine-induced disorders Discharge Plan: Home Plan to discharge in: 24 Hours - Code Status/Comfort Care Code Status Assessed: Yes Critical Care: No
[2017-12-18 12:31] LABS: Hematocrit 23.3 % (36.0-45.0)
[2017-12-18] MEDS ORDERED: PROPOFOL 200 MG/20 ML VIAL IV ONE (14:36)
[2017-12-18] MEDS ORDERED: Phenylephrine HCl 10 MG/ML 1 ML VIAL ONE (14:54)
[2017-12-18] MEDS: ENSURE ENLIVE 237 ML CAN PO SCH (20:34)
[2017-12-18] MEDS ORDERED: NA CHLORIDE 0.9% 1,000 ML IV ONE (21:00)
[2017-12-18] MEDS ORDERED: ONDANSETRON 4 MG/2 ML VIAL IV PRN (23:00)
[2017-12-19 01:07] VITALS: O2SAT 99
--- NOTE | 2017-12-19 02:05 | OP ---
Date of Procedure: 12/18/2017 Surgeon: Merrill Thomason MD A 47-year-old female. Indication: GI bleeding. History of cirrhosis. Premedication: Per anesthesia. Complexity: Moderate. Tolerance Of Sedation: Excellent. Procedure In Detail: The procedure, possible complications, alternatives including but not limited t o the possibility of bleeding, perforation, tear, infection, sepsis, need for surgery, need for blood transfusion, anesthesia related problem explained to the patient. Informed consent was obtained. A fter appropriate level of anesthesia, scope was passed. Esophageal mucosa in the proximal aspect ryan eared to be within normal range. However mid to distal aspect grade 2 esophageal varices noted. No stigmata of bleeding was noted upon repeated examination. In the stomach, diffuse portal hypertensive gastropathy noted in fundus, body, antrum, pyloric area, prepyloric area, and upon retroflexion, no active or passive bleeding noted. Duodenal bulb, duodenal angle, duodenal part 2 appeared to be within normal range. Biopsy from gastric body and antrum done. Having done the above procedure in a safe, diligent, and satisfactory manner, endoscope and rest of t he endoscopic accessories were removed. The patient's oropharyngeal area was cleaned out in a respec tful manner. The patient has been sent in excellent condition to postop recovery, from there to the floor. Impression: 1.Grade 2 esophageal varices in the distal and mid area. No stigmata of bleeding was noted. 2.Portal hypertensive gastropathy. Plan: Await biopsy results. Continue proton pump inhibitor. Start full liquid diet and clearly adv ance unless any recurrent bleeding or blood drop of hemoglobin and hematocrit. Further treatment as an outpatient from tomorrow. Complications none. The patient tolerated the procedure well. She has been advised that stopping alcohol is the primary therapy in this case. MIHIR/HILARIO Voice ID: [id number] Report ID: [id number]
[2017-12-19] MEDS: OCTREOTIDE 500 MCG in NA CHLORIDE 0.9% 500 ML IV SCH (06:33)
[2017-12-19] MEDS: PANTOPRAZOLE INJ 80 MG in NA CHLORIDE 0.9% 250 ML IV SCH (06:33)
[2017-12-19] MEDS: NA CHLORIDE 0.9% 1,000 ML IV SCH (06:34)
[2017-12-19] MEDS: SODIUM BICARB 325 MG TAB PO SCH ×2 (08:14→21:11)
[2017-12-19] MEDS: MULTIVIT W/ MINERAL TAB PO SCH (08:14)
[2017-12-19] MEDS: FOLIC ACID 1 MG TABLET PO SCH (08:14)
[2017-12-19] MEDS: ENSURE ENLIVE 237 ML CAN PO SCH ×2 (08:15→21:12)
[2017-12-19] MEDS: NADOLOL 40 MG TAB PO SCH (08:16)
[2017-12-19] MEDS: THIAMINE HCL 100 MG TABLET PO SCH (08:17)
[2017-12-19] MEDS: ACETAMINOPHEN 500 MG TAB PO PRN ×2 (10:54→18:40)
[2017-12-19 11:29] LABS: Absolute Lymphocytes (CBC) 0.3 K/uL (0.7-4.9); Absolute Monocytes 0.3 K/uL (0.1-1.3); Absolute Neutrophil 3.7 K/uL (1.8-8.0); Eosinophils % 4.8 % (0-4.4); Hematocrit 27.7 % (36.0-45.0); Lymphocytes % 5.8 % (15.3-44.8); MCH 32.6 pg (27.0-35.0); MPV 10.4 fL (7.6-11.3); Monocytes % 6.6 % (3.3-12.3); RBC Red Blood Cell Count 2.75 M/uL (3.86-4.86)
[2017-12-19 11:35] LABS: Potassium 3.9 mEq/L (3.6-5.0)
[2017-12-19] MEDS ORDERED: NA CHLORIDE 0.9% 1,000 ML IV SCH (12:00)
--- NOTE | 2017-12-19 12:15 | P.PN ---
Subjective Date of Service: 12/19/17 Primary Care Provider: None Chief Complaint: Hematemesis Pt seen and examined at bedside. Case D/W GI. Pt usually seen by Dr Leigh who is unavailable at this time. S/p EGD. No acute bleeding noted. Consistent with Esophageal Varies Review of Systems General: As per HPI Physical Examination - Vital Signs Temperature: 98.9 F Blood Pressure: 92/48 Pulse: 79 Respirations: 16 Pulse Ox (%): 95 - Physical Exam General: Alert, In no apparent distress, Oriented x3 HEENT: Atraumatic, PERRLA, EOMI Neck: Supple, JVD distended Respiratory: Clear to auscultation bilaterally, Normal air movement Cardiovascular: Regular rate/rhythm, Normal S1 S2 Gastrointestinal: Normal bowel sounds, No tenderness, Distended, Ascites Musculoskeletal: No tenderness Integumentary: No rashes Neurological: Normal speech, Normal tone, Normal affect Lymphatics: No axilla or inguinal lymphadenopathy - Studies Medications List Reviewed: Yes Assessment & Plan - Problems (Diagnosis) (1) Gastrointestinal hemorrhage Onset Date: 12/17/17 Current Visit: Yes Status: Acute Plan: H/o of GI bleed now again with Hematemesis. -GI consulted. Reccs appreciated -s/p EGD - No acute bleeding or ulcers noted. Esophageal Varies -Switch to PO protonix -CLD for now Qualifiers: GI bleed type/associated pathology: gastrointestinal hemorrhage with hematemesis Qualified Code(s): K92.0 - Hematemesis (2) History of esophageal varices Current Visit: No Status: Chronic Plan: H/o Varices due to chronic alcoholic Cirrhosis -PO protonix now -BB and Rifaxmin started (3) Alcoholic cirrhosis Onset Date: 10/21/17 Current Visit: No Status: Chronic Qualifiers: Ascites presence: with ascites Qualified Code(s): K70.31 - Alcoholic cirrhosis of liver with ascites (4) Ascites Onset Date: 10/21/17 Current Visit: No Status: Chronic Plan: Pt had small leak in the abdomen yesterday. -CT ABD with small. No new changes from before. -Will observe for now Qualifiers: Ascites type: due to alcoholic cirrhosis Qualified Code(s): K70.31 - Alcoholic cirrhosis of liver with ascites (5) GERD (gastroesophageal reflux disease) Onset Date: 10/21/17 Current Visit: No Status: Chronic Qualifiers: Esophagitis presence: with esophagitis Qualified Code(s): K21.0 - Gastro- esophageal reflux disease with esophagitis (6) Marijuana abuse Onset Date: 12/09/17 Current Visit: No Status: Acute (7) Nicotine dependence Onset Date: 12/09/17 Current Visit: No Status: Acute Qualifiers: Nicotine product type: cigarettes Substance use status: unspecified nicotine-induced disorder Qualified Code(s): F17.219 - Nicotine dependence, cigarettes, with unspecified nicotine-induced disorders (8) Low bicarbonate level Current Visit: Yes Status: Acute Plan: Most muro 2.2 to Shallow respiration due to ascites vs medication -Will observe -IV fluids stopped at this time
[2017-12-19] MEDS ORDERED: ALBUMIN HUMAN 25% 100 ML IV ONE (13:00)
[2017-12-19] MEDS: MIDODRINE HCL 5 MG TABLET PO SCH ×2 (13:02→21:11)
[2017-12-19] MEDS: LACTULOSE 20 GM/30 ML UCUP PO SCH ×2 (13:03→21:11)
[2017-12-19] MEDS ORDERED: VANCOMYCIN/NS 1 gm 1 GM/250 ML BAG IVPB ONE (16:00)
[2017-12-19] MEDS: PANTOPRAZOLE 40MG TABLET PO SCH (17:28)
[2017-12-19] MEDS ORDERED: MIDODRINE HCL 5 MG TABLET PO SCH (21:00)
[2017-12-20] MEDS: ENSURE ENLIVE 237 ML CAN PO SCH (09:00)
[2017-12-20] MEDS: NADOLOL 40 MG TAB PO SCH (09:00)
[2017-12-20] MEDS: MULTIVIT W/ MINERAL TAB PO SCH (09:19)
[2017-12-20] MEDS: LACTULOSE 20 GM/30 ML UCUP PO SCH ×2 (09:19→15:16)
[2017-12-20] MEDS: FOLIC ACID 1 MG TABLET PO SCH (09:19)
[2017-12-20] MEDS: SODIUM BICARB 325 MG TAB PO SCH (09:19)
[2017-12-20] MEDS: PANTOPRAZOLE 40MG TABLET PO SCH ×2 (09:19→17:10)
[2017-12-20] MEDS: ACETAMINOPHEN 500 MG TAB PO PRN (09:20)
[2017-12-20] MEDS: THIAMINE HCL 100 MG TABLET PO SCH (09:20)
[2017-12-20] MEDS: MIDODRINE HCL 5 MG TABLET PO SCH (09:20)
[2017-12-20 11:40] LABS: Absolute Lymphocytes (CBC) 0.3 K/uL (0.7-4.9); Absolute Monocytes 0.4 K/uL (0.1-1.3); Absolute Neutrophil 4.2 K/uL (1.8-8.0); Basophils % 1.6 % (0-1.3); Eosinophils % 6.9 % (0-4.4); Hematocrit 28.2 % (36.0-45.0); Lymphocytes % 5.2 % (15.3-44.8); MCH 33.2 pg (27.0-35.0); MCV 100.5 fL (80-100); Monocytes % 8.1 % (3.3-12.3)
[2017-12-20 12:09] LABS: Albumin 2.7 g/dL (3.2-5.5); Protein, Total 5.7 g/dL (6.0-8.3)
--- NOTE | 2017-12-20 15:18 | P.DS ---
Admission Date: 12/16/17 Discharge Date: 12/20/17 Primary Care Provider: None Disposition: ROUTINE DISCHARGE Discharge Condition: GOOD Reason for Admission: Hematemesis Consultations: GI Procedures: EGD - Problems (1) Gastrointestinal hemorrhage Onset Date: 12/17/17 Current Visit: Yes Status: Acute Qualifiers: GI bleed type/associated pathology: gastrointestinal hemorrhage with hematemesis Qualified Code(s): K92.0 - Hematemesis (2) History of esophageal varices Current Visit: No Status: Chronic (3) Alcoholic cirrhosis Onset Date: 10/21/17 Current Visit: No Status: Chronic Qualifiers: Ascites presence: with ascites Qualified Code(s): K70.31 - Alcoholic cirrhosis of liver with ascites (4) Ascites Onset Date: 10/21/17 Current Visit: No Status: Chronic Qualifiers: Ascites type: due to alcoholic cirrhosis Qualified Code(s): K70.31 - Alcoholic cirrhosis of liver with ascites (5) GERD (gastroesophageal reflux disease) Onset Date: 10/21/17 Current Visit: No Status: Chronic Qualifiers: Esophagitis presence: with esophagitis Qualified Code(s): K21.0 - Gastro- esophageal reflux disease with esophagitis (6) Marijuana abuse Onset Date: 12/09/17 Current Visit: No Status: Acute (7) Nicotine dependence Onset Date: 12/09/17 Current Visit: No Status: Acute Qualifiers: Nicotine product type: cigarettes Substance use status: unspecified nicotine-induced disorder Qualified Code(s): F17.219 - Nicotine dependence, cigarettes, with unspecified nicotine-induced disorders (8) Low bicarbonate level Current Visit: Yes Status: Acute Brief History of Present Illness: See HPI Hospital Course: Overall during the hospital stay patient remained stable The patient was initially admitted to the hospital for hematemesis. Patient noted that she has been having hematemesis for past 2-3 days and thus decided to come to the ER. Initially hemoglobin in the ER was low and this patient was admitted for further GI workup. Patient was kept on IV fluids, IV Protonix, IV octreotide, and IV antibiotics. Patient does have a history of alcoholism which has caused her to have liver cirrhosis and esophageal varices. Patient will was given 2 units of transfusion here in the hospital. GI was consulted who did an EGD on the patient was found to have esophageal varices stage II with no acute bleeding along with esophagitis and gastritis. Patient also was found to have some leakage of fluid from her abdomen area most likely ascitic fluid and thus was sent for cultures and grew Staph epidermidis. Patient was stable after 2-3 days of hospitalization without having any acute bleeding. Patient was then discharged home under stable condition upon improvement of her GI bleeding and ascites. Patient was given IV vancomycin has sensitivity to Staph epidermis revealed that he was only sensitive to Vancomycin. Patient followup with GI in about 1-2 weeks post discharge. Patient stated that she will not be drinking anymore alcohol that she understands the importance of alcohol damaging her liver. Patient also to follow up with her primary care provider in about 1-2 days post discharge. Vital Signs/Physical Exam: Temp Pulse Resp BP Pulse Ox 99.1 F 82 16 93/50 L 97 12/20/17 12:00 12/20/17 12:00 12/20/17 12:00 12/20/17 12:00 12/20/17 12:00 General: Alert, In no apparent distress HEENT: Atraumatic, PERRLA, EOMI Neck: Supple, JVD not distended Respiratory: Clear to auscultation bilaterally, Normal air movement Cardiovascular: Regular rate/rhythm, Normal S1 S2 Gastrointestinal: Normal bowel sounds, No tenderness Musculoskeletal: No tenderness Integumentary: No rashes Neurological: Normal speech, Normal tone, Normal affect Lymphatics: No axilla or inguinal lymphadenopathy Laboratory Data at Discharge: WBC 5.4 K/uL (4.3-10.9) D 12/20/17 11:15 Hgb 9.3 g/dL (12.0-15.0) L 12/20/17 11:15 Hct 28.2 % (36.0-45.0) L 12/20/17 11:15 Plt Count 105 K/uL (152-406) L 12/20/17 11:15 PT 13.9 SECONDS (9.5-12.5) H 12/16/17 17:21 INR 1.18 12/16/17 17:21 APTT 30.0 SECONDS (24.3-36.9) 12/16/17 17:21 Sodium 136 mEq/L (135-145) 12/20/17 11:15 Potassium 4.0 mEq/L (3.6-5.0) 12/20/17 11:15 BUN 21 mg/dL (6-20) H 12/20/17 11:15 Creatinine 1.16 mg/dL (0.44-1.00) H 12/20/17 11:15 Glucose 147 mg/dL (65-120) H 12/20/17 11:15 Total Bilirubin 1.0 mg/dL (0.3-1.2) 12/20/17 11:15 AST 64 IU/L (10-42) H 12/20/17 11:15 ALT 25 IU/L (10-60) 12/20/17 11:15 Alkaline Phosphatase 91 IU/L (42-121) 12/20/17 11:15 Lipase 37 U/L (22-51) 12/17/17 04:25 Home Medications: Ondansetron HCl 1 tab PO Q12HP PRN 10/20/17 Potassium Chloride 20 meq PO DAILY 10/28/17 Tramadol HCl [Ultram] 50 mg PO Q6H PRN 11/07/17 Thiamine HCl [Vitamin B-1*] 100 mg PO DAILY tablet 12/08/17 Folic Acid 1 mg PO DAILY 12/17/17 Furosemide 40 mg PO DAILY 12/17/17 Lactulose [Cephulac*] 30 ml PO TID 12/17/17 Multivit-Min/Iron Fum/Folic AC [Qklqq-Kzpniwc-Vnbxfbex Tablet] 1 tab PO DAILY Nadolol 20 mg PO DAILY 12/17/17 Omeprazole 2 cap PO BID 12/17/17 Rifaximin [Xifaxan] 550 mg PO BID 12/17/17 Sodium Bicarbonate 650 mg PO BID 12/17/17 Midodrine HCl [Proamatine*] 5 mg PO BID #60 tab 12/20/17 Pantoprazole [Protonix Tab*] 40 mg PO BIDAC #60 tab 12/20/17 Vancomycin/0.9 % Sod Chloride [Vanco 1.25 gm/250 ml-0.9% NaCl] 1.25 gm IV Q18H 14 Days plast..bag 12/20/17 New Medications: Midodrine HCl [Proamatine*] 5 mg PO BID #60 tab Pantoprazole [Protonix Tab*] 40 mg PO BIDAC #60 tab Vancomycin/0.9 % Sod Chloride [Vanco 1.25 gm/250 ml-0.9% NaCl] 1.25 gm IV Q18H 14 Days plast..bag Patient Discharge Instructions: Please f/u PCP in 1 week post discharge. Please f/u GI in 1 week post discharge. new medication. CiproFloxacin. Flagyl Diet: Regular Activity: Ad alina Followup: Merrill Thomason MD [ACTIVE - CAN ADMIT] - 1 Week
--- NOTE | 2017-12-20 15:21 | RAD REPORT ---
EXAM DESCRIPTION: RAD - Chest Single View - 12/20/2017 3:10 pm CLINICAL HISTORY: Left-sided PICC line COMPARISON: None. FINDINGS: Portable chest was obtained following placement of a left upper extremity PICC line. The c atheter tip is in the SVC.
[2017-12-20] MEDS ORDERED: VANCOMYCIN 1.25 GM in NA CHLORIDE 0.9% 250 ML IVPB SCH ×4 (17:00)
[2017-12-20 17:15] VITALS: BP 91/57; TEMP 98.4
== END 2017-12-20 19:30 | disposition home or self-care (01) | DRG 378 ==
LOC: ER 16:24 → ERHOLD 18:03 → 2ND 19:54
PROVIDERS: ADMIT Family Medicine; ATTEND Family Medicine
PROC: 0DB68ZX Excision of Stomach, Via Natural or Artificial Opening Endoscopic, Diagnostic (ICD-10-PCS; principal; 2017-12-18 10:30)
PROC: 02HV33Z Insertion of Infusion Device into Superior Vena Cava, Percutaneous Approach (ICD-10-PCS; 2017-12-20)
PROC: 30233N1 Transfusion of Nonautologous Red Blood Cells into Peripheral Vein, Percutaneous Approach (ICD-10-PCS; 2017-12-20)
DX: K92.0 Hematemesis (principal); K76.6 Portal hypertension; K70.31 Alcoholic cirrhosis of liver with ascites; I85.10 Secondary esophageal varices without bleeding; B95.7 Other staphylococcus as the cause of diseases classified elsewhere; K21.9 Gastro-esophageal reflux disease without esophagitis; F12.10 Cannabis abuse, uncomplicated; K31.89 Other diseases of stomach and duodenum; F17.210 Nicotine dependence, cigarettes, uncomplicated
CPT/HCPCS: 36415; 71045; 74176; 80048; 80053; 80076; 81003; 81015; 81025; 83690; 84484; 85014; 85018; 85025; 85610; 85730; 86850; 86900; 86901; 87070; 87077; 87186; 88305; 88312; 93005; 99285; C9113; J0696; J2270; J2354; J2370; J2405; J2550; J3370; J7030; P9016; P9047

== ENCOUNTER → 2017-12-25 | Day surgery (SDC) | payer MEDICAID ==
[~2017-12-25] MED LIST changes: -ALBUMIN HUMAN 25% 100 ML IV SCH; +ALBUMIN HUMAN 25% 300 ML IV ONE
--- OUTSIDE RECORDS SUMMARY | 2017-12-25 09:38 | XMS REPORT | Clinical Summary ---
:1970 Author Organization [facility] Address [address] [place] [address] Phone Care Team Providers Name Role Phone [...] test for immunity to both viruses - [facility] recommendations will follow. Portal hypertension (HCC) 11/27/2017 [...] malignant neoplasm;Immunity status testing;Portal hypertension (HCC) after 12/24/2016 Social History Tobacco Use Types Packs/Day Years [...] Office Visit Hepatology Ugo Doss MD [address] [facility] [address] [place] [address] Health Maintenance Due Date Last Done Comments INFLUENZA VACCINE 05/05/2018 Results Hepatitis A antibody, IgG (11/27/2017 1:34 PM) Component Value Ref Range Hep A IgG Nonreactive Nonreactive Specimen Performing Laboratory Blood [address] [address] Mitochondrial Antibodies, M2 (11/27/2017 1:34 PM) Component Value Ref Range Mitochondria M2 Ab <20.0 See Note: U Comment: Reference Range: NEGATIVE:< OR=20.0 EQUIVOCAL: 20.1-24.9 POSITIVE:> OR=25.0 Specimen Performing Laboratory Blood [facility] [address] [address] Narrative Performing Lab [facility] [address] [address] Lizette Cason MD, PhD, ABIMBOLA Iron, TIBC, % sat. (without ferritin) (11/27/2017 1:34 PM) Component Value Ref Range Iron 37 (L) 40 - 160 ug/dL TIBC 219 (L) 250 - 450 ug/dL Iron % Saturation 17 (L) 20 - 55 % Specimen Performing Laboratory Blood [address] [address] CBC with platelet count + automated diff [...] - 1 % Specimen Performing Laboratory Blood [address] [address] Hepatitis C antibody (11/27/2017 1:34 PM) Component Value Ref Range Hepatitis C Ab Nonreactive Nonreactive Specimen Performing Laboratory Blood [address] [address] Actin (Smooth Muscle) Antibody, IgG (11/27/2017 1:34 [...] Specimen Performing Laboratory Blood [facility] [address] [address] Narrative Performing Lab [facility] [address] [address] Lizette Cason MD, PhD, ABIMBOLA [id number]-6-[id number] (11/27/2017 1:34 PM) Component Value Ref Range A-1 Antitrypsin 151.80 90.00 - 200.00 mg/dL Specimen Performing Laboratory Blood [address] [address] LÓPEZ Titer & Pattern (11/27/2017 1:34 PM) Component Value Ref Range LÓPEZ Titer 1:40 LÓPEZ Pattern Speckled Specimen Performing Laboratory Blood [address] [address] Ceruloplasmin (11/27/2017 1:34 PM) Component Value Ref Range Ceruloplasmin 25 18 - 53 mg/dL Comment: Adults:Males: 18-36 mg/dL Females: 18-53 mg/dL Pediatrics:Males (mg/dL)Females (mg/dL) 0-30 Days 8-25 3-28 31 Days-11 Month 15-4815-43 1-3 [id number] 4-6 [id number] 7-9 [id number] 10-12 [id number] 13-15 [id number] 16-18 Gukij25-5340-11 The pediatric ranges are derived from the following criteria: Yehuda SJ, Buck JM, Lorna J et al Pediatric reference ranges for Oq[place]-5-Fxroahefhejrz and ceruloplasmin. Clin. Chem 1997; 43:S1999 Pediatric Reference Ranges, 2nd., [place] Yehudaet al. editors. [employer], [place], [place] 1997. Specimen Performing Laboratory Blood [facility] [address] [place] [address] Narrative Performing Lab *SPL [facility], [address] [place] [address] Florencia Almanzar MD, PhD Alpha fetoprotein (AFP), tumor marker (11/27/2017 1:34 PM) Component Value Ref Range Alpha-Fetoprotein 4.9 <10.0 ng/mL Specimen Performing Laboratory Blood [address] [address] Hepatitis B core antibody, total (11/27/2017 1:34 PM) Component Value Ref Range Hep B Core Total Ab Nonreactive Nonreactive Specimen Performing Laboratory Blood [address] [address] Hepatitis B surface antibody (11/27/2017 1:34 PM) Component Value Ref Range Hep B S Ab <8.0 <8.0 mIU/mL Specimen Performing Laboratory Blood [address] [address] Hepatitis B surface antigen (11/27/2017 1:34 PM) Component Value Ref Range hepatitis B Surface Ag Nonreactive Nonreactive Specimen Performing Laboratory [address] [address] Pro-time/INR (11/27/2017 1:34 PM) Component Value Ref Range Protime 17.2 (H) 11.7 - 14.7 seconds INR 1.4 <=5.9 Specimen Performing Laboratory [address] [address] Narrative RECOMMENDED COUMADIN/WARFARIN INR THERAPY RANGES STANDARD [...] Status --------- ------ CBC with platelet count ...[[id number]]AbnormalFinal result Please view results for these tests on the individual orders. Anti-Nuclear Antibody (LÓPEZ) (11/27/2017 1:34 PM) Component Value Ref Range LÓPEZ Positive (A) Negative Specimen Performing Laboratory Blood [address] [address] Ferritin (11/27/2017 1:34 PM) Component Value Ref Range Ferritin 237 5 - 275 ng/mL Specimen Performing Laboratory Blood [address] [address] Bilirubin, direct (11/27/2017 1:34 PM) Component Value Ref Range Bilirubin, Direct 0.6 (H) 0.1 - 0.5 mg/dL Specimen Performing Laboratory Blood [address] [address] Comprehensive Metabolic Panel (11/27/2017 1:34 PM) Component [...] DIALYSIS PATIENTS. Specimen Performing Laboratory Blood [facility] [address] [address] after 12/24/2016
--- OUTSIDE RECORDS SUMMARY | 2017-12-25 09:38 | XMS REPORT ---
:1970 [facility] Address [address] [place] [address] Dr. Lockhart [address] [place] [address] Care Team Providers Name Role Phone RAMON [...] Range Comments ANTI-NUCLEAR ANTIBODY (LÓPEZ) (BEAKER) (test oyzs=760) Positive Negative LÓPEZ TITER AND [id number] 09:50:00 Test Item Value Reference Range Comments LÓPEZ TITER (BEAKER) (test nokq=8586) :40 LÓPEZ PATTERN (BEAKER) (test ohyw=6009) Speckled [id number] 15:34:00 Test Item Value Reference Range Comments FERRITIN (BEAKER) (test dejo=118) 237 ng/mL 5-275 HEPATITIS B SURFACE [id number] 14:54:00 Test Item Value Reference Range Comments HEPATITIS B SURFACE ANTIBODY (BEAKER) (test < mIU/mL <8.0 sbhi=082) HEPATITIS B SURFACE [id number] 14:49:00 Test Item Value Reference Range Comments HEPATITIS B SURFACE ANTIGEN (2) (BEAKER) (test Nonreactive Nonreactive vbjq=3198) HEPATITIS C [id number] 14:49:00 Test Item Value Reference Range Comments HEPATITIS C ANTIBODY (BEAKER) (test goya=128) Nonreactive Nonreactive ALPHA FETOPROTEIN (AFP), TUMOR [id number] 14:48:00 Test Item Value Reference Range Comments ALPHA-FETOPROTEIN (BEAKER) (test wlay=7219) 4.9 ng/mL <10.0 HEPATITIS B CORE ANTIBODY, [id number] 14:48:00 Test Item Value Reference Range Comments HEPATITIS B CORE TOTAL ANTIBODY (BEAKER) (test Nonreactive Nonreactive casr=072) HEPATITIS A ANTIBODY, [id number] 14:48:00 Test Item Value Reference Range Comments HEPATITIS A IGG ANTIBODY (BEAKER) (test Nonreactive Nonreactive pvyw=0887) CBC W/PLT COUNT & AUTO [id number] 14:30:00 Test Item Value Reference Range Comments WHITE BLOOD CELL COUNT (BEAKER) (test dyst=900) 5.2 K/ L 3.5-10.5 RED BLOOD CELL COUNT (BEAKER) (test fylf=572) 2.96 M/ L 3.93-5.22 HEMOGLOBIN (BEAKER) (test yswn=934) 9.7 GM/DL 11.2-15.7 HEMATOCRIT (BEAKER) (test mtpp=807) 31.0 % 34.1-44.9 MEAN CORPUSCULAR VOLUME (BEAKER) (test xnsg=572) 104.7 fL 79.4-94.8 MEAN CORPUSCULAR HEMOGLOBIN (BEAKER) (test 32.8 pg 25.6-32.2 hnbe=598) MEAN CORPUSCULAR HEMOGLOBIN CONC (BEAKER) (test 31.3 GM/DL 32.2-35.5 doew=500) RED CELL DISTRIBUTION WIDTH (BEAKER) (test 17.8 % 11.7-14.4 vwtn=193) PLATELET COUNT (BEAKER) (test pclz=911) 92 K/CU MM 150-450 MEAN PLATELET VOLUME (BEAKER) (test ksta=375) 10.3 fL 9.4-12.3 NUCLEATED RED BLOOD CELLS (BEAKER) (test 0 /100 WBC 0-0 isxf=743) NEUTROPHILS RELATIVE PERCENT (BEAKER) (test 81 % rfwa=472) LYMPHOCYTES RELATIVE PERCENT (BEAKER) (test 6 % gpqi=539) MONOCYTES RELATIVE PERCENT (BEAKER) (test 9 % hvxh=390) EOSINOPHILS RELATIVE PERCENT (BEAKER) (test 3 % akga=982) BASOPHILS RELATIVE PERCENT (BEAKER) (test 1 % wxtu=914) NEUTROPHILS ABSOLUTE COUNT (BEAKER) (test 4.23 K/ L 1.56-6.13 sdhs=050) LYMPHOCYTES ABSOLUTE COUNT (BEAKER) (test 0.29 K/ L 1.18-3.74 bnmi=842) MONOCYTES ABSOLUTE COUNT (BEAKER) (test ymow=997) 0.49 K/ L 0.24-0.36 EOSINOPHILS ABSOLUTE COUNT (BEAKER) (test 0.14 K/ L 0.04-0.36 ysby=763) BASOPHILS ABSOLUTE COUNT (BEAKER) (test eilw=941) 0.06 K/ L 0.01-0.08 IMMATURE GRANULOCYTES-RELATIVE PERCENT (BEAKER) 0 % 0-1 (test fzcf=0791) COMPREHENSIVE METABOLIC [id number] 14:28:00 Test Item Value Reference Range Comments TOTAL PROTEIN (BEAKER) 7.6 gm/dL 6.0-8.3 (test nnrf=838) ALBUMIN (BEAKER) (test 3.6 g/dL 3.5-5.0 krlp=1236) ALKALINE PHOSPHATASE 144 U/L 40-150 (BEAKER) (test zrum=466) BILIRUBIN TOTAL (BEAKER) 1.1 mg/dL 0.2-1.2 (test lwau=639) SODIUM (BEAKER) (test 135 meq/L 136-145 hckg=774) POTASSIUM (BEAKER) (test 3.6 meq/L 3.5-5.1 qzux=759) CHLORIDE (BEAKER) (test 103 meq/L 98-107 psat=702) CO2 (BEAKER) (test 22 meq/L 22-29 hvmf=241) BLOOD UREA NITROGEN 16 mg/dL 7-21 (BEAKER) (test eews=604) CREATININE (BEAKER) (test 1.82 mg/dL 0.57-1.25 fgoy=888) GLUCOSE RANDOM (BEAKER) 102 mg/dL 70-105 (test bmem=806) CALCIUM (BEAKER) (test 9.1 mg/dL 8.4-10.2 xrsr=316) AST (SGOT) (BEAKER) (test 39 U/L 5-34 kenr=459) ALT (SGPT) (BEAKER) (test 14 U/L 6-55 efms=650) EGFR (BEAKER) (test 30 mL/min/1.73 sq m ESTIMATED GFR IS NOT nqot=4578) ACCURATE CREATININE CLEARANCE IN PREDICTING GLOMERULAR FILTRATION RATE. ESTIMATED GFR IS NOT APPLICABLE FOR DIALYSIS PATIENTS. BILIRUBIN, [id number] 14:28:00 Test Item Value Reference Range Comments BILIRUBIN DIRECT (BEAKER) (test ntuw=304) 0.6 mg/dL 0.1-0.5 IRON, TIBC, % SAT. (WITHOUT FERRITIN)2017-11-27 14:26:00 Test Item Value Reference Range Comments IRON (BEAKER) (test mumc=562) 37 ug/dL 40-160 TOTAL IRON BINDING CAPACITY (BEAKER) (test 219 ug/dL 250-450 komu=103) IRON % SATURATION (2) (BEAKER) (test miqk=9919) 17 % 20-55 [id number] 14:25:00 Test Item Value Reference Range Comments ALPHA-1 ANTITRYPSIN (BEAKER) (test khgp=154) 151.80 mg/dL 90.00-200.00 PROTHROMBIN [id number] 14:03:00 Test Item Value Reference Range Comments PROTIME (BEAKER) (test vnfz=429) 17.2 seconds 11.7-14.7 INR (BEAKER) (test bupr=302) 1.4 <=5.9 RECOMMENDED COUMADIN/WARFARIN INR THERAPY RANGESSTANDARD DOSE: 2.0 - 3.0 Includes: PROPHYLAXIS forvenous thrombosis, systemic embolization; TREATMENT for venous thrombosis and/or pulmonary embolus.HIGH RISK: Target INR is 2.5-3.5 for patients with mechanical heart valves.
[2017-12-25 10:12] VITALS: BP 109/78; TEMP 97.6; O2SAT 100; BMI 21.9
--- NOTE | 2017-12-25 11:52 | RAD REPORT ---
EXAM DESCRIPTION: US - Paracentesis Proc Guidance - 12/25/2017 11:12 am CLINICAL HISTORY: Ascites COMPARISON: Multiple prior paracentesis procedures. TECHNIQUE: The patient presents for ultrasound-guided paracentesis. The procedure, risks and altern atives were discussed with the patient in detail. Oral and written consent were obtained. Time out p rocedure was performed. The patient had no contraindicated allergy or medication history. Preliminary sonographic evaluation identified a right lower quadrant access site. The skin and deepe r tissues were anesthetized with 1 percent lidocaine. Under direct sonographic visualization, a para centesis catheter was advanced into the peritoneal cavity. Approximately 15 mL were retained for requ ested laboratory studies. Drainage was initiated. At the conclusion of the procedure, catheter was wi thdrawn and a bandage placed at the puncture site. Post-procedure care and precaution instructions we re given to the patient. IMPRESSION: 1. Ultrasound-guided paracentesis as detailed. Approximately 10 liters of ascites remove d. 2. A small quantity of fluid was retained for requested laboratory studies.
[2017-12-25 12:10] LABS: Appearance CLEAR (CLEAR); Body Fluid Source PLEURAL; Body Fluid WBC 5 /mm^3; Color of fluid Colorless (COLORLESS)
== END | disposition home or self-care (01) ==
LOC: DS 09:35
PROVIDERS: ATTEND Internal Medicine Gastroenterology
PROC: 0W9G3ZX Drainage of Peritoneal Cavity, Percutaneous Approach, Diagnostic (ICD-10-PCS; principal; 2017-12-25)
PROC: BW40ZZZ Ultrasonography of Abdomen (ICD-10-PCS; 2017-12-25)
DX: K70.31 Alcoholic cirrhosis of liver with ascites (principal)
CPT/HCPCS: 36415; 49083; 87070; 89050; P9047

== ENCOUNTER 2018-01-07 08:58 | Emergency (ER) | payer MEDICAID ==
--- OUTSIDE RECORDS SUMMARY | 2018-01-07 09:02 | XMS REPORT ---
:1970 Author Organization [facility] Address [address] [place] [address] Dr. Lockhart [address] [place] [id number] Care Team Providers Name Role Phone RAMON [...] Range Comments ANTI-NUCLEAR ANTIBODY (LÓPEZ) (BEAKER) (test rglz=611) Positive Negative LÓPEZ TITER AND [id number] 09:50:00 Test Item Value Reference Range Comments LÓPEZ TITER (BEAKER) (test mwkx=9601) :40 LÓPEZ PATTERN (BEAKER) (test ryth=2646) Speckled [id number] 15:34:00 Test Item Value Reference Range Comments FERRITIN (BEAKER) (test asya=859) 237 ng/mL 5-275 HEPATITIS B SURFACE [id number] 14:54:00 Test Item Value Reference Range Comments HEPATITIS B SURFACE ANTIBODY (BEAKER) (test < mIU/mL <8.0 kpcm=359) HEPATITIS B SURFACE [id number] 14:49:00 Test Item Value Reference Range Comments HEPATITIS B SURFACE ANTIGEN (2) (BEAKER) (test Nonreactive Nonreactive gwcw=2837) HEPATITIS C [id number] 14:49:00 Test Item Value Reference Range Comments HEPATITIS C ANTIBODY (BEAKER) (test wdsu=792) Nonreactive Nonreactive ALPHA FETOPROTEIN (AFP), TUMOR [id number] 14:48:00 Test Item Value Reference Range Comments ALPHA-FETOPROTEIN (BEAKER) (test vvbq=3617) 4.9 ng/mL <10.0 HEPATITIS B CORE ANTIBODY, [id number] 14:48:00 Test Item Value Reference Range Comments HEPATITIS B CORE TOTAL ANTIBODY (BEAKER) (test Nonreactive Nonreactive zjsy=859) HEPATITIS A ANTIBODY, [id number] 14:48:00 Test Item Value Reference Range Comments HEPATITIS A IGG ANTIBODY (BEAKER) (test Nonreactive Nonreactive hgot=2405) CBC W/PLT COUNT & AUTO [id number] 14:30:00 Test Item Value Reference Range Comments WHITE BLOOD CELL COUNT (BEAKER) (test wxwr=031) 5.2 K/ L 3.5-10.5 RED BLOOD CELL COUNT (BEAKER) (test coml=064) 2.96 M/ L 3.93-5.22 HEMOGLOBIN (BEAKER) (test txqp=264) 9.7 GM/DL 11.2-15.7 HEMATOCRIT (BEAKER) (test hfkg=148) 31.0 % 34.1-44.9 MEAN CORPUSCULAR VOLUME (BEAKER) (test yjhw=425) 104.7 fL 79.4-94.8 MEAN CORPUSCULAR HEMOGLOBIN (BEAKER) (test 32.8 pg 25.6-32.2 hxmo=010) MEAN CORPUSCULAR HEMOGLOBIN CONC (BEAKER) (test 31.3 GM/DL 32.2-35.5 tdkp=343) RED CELL DISTRIBUTION WIDTH (BEAKER) (test 17.8 % 11.7-14.4 hfsp=343) PLATELET COUNT (BEAKER) (test svyu=985) 92 K/CU MM 150-450 MEAN PLATELET VOLUME (BEAKER) (test wnhe=951) 10.3 fL 9.4-12.3 NUCLEATED RED BLOOD CELLS (BEAKER) (test 0 /100 WBC 0-0 yzol=817) NEUTROPHILS RELATIVE PERCENT (BEAKER) (test 81 % ueqz=930) LYMPHOCYTES RELATIVE PERCENT (BEAKER) (test 6 % fews=537) MONOCYTES RELATIVE PERCENT (BEAKER) (test 9 % mtxp=620) EOSINOPHILS RELATIVE PERCENT (BEAKER) (test 3 % cnqs=270) BASOPHILS RELATIVE PERCENT (BEAKER) (test 1 % oqtu=951) NEUTROPHILS ABSOLUTE COUNT (BEAKER) (test 4.23 K/ L 1.56-6.13 ijjc=404) LYMPHOCYTES ABSOLUTE COUNT (BEAKER) (test 0.29 K/ L 1.18-3.74 hnrx=290) MONOCYTES ABSOLUTE COUNT (BEAKER) (test nnws=991) 0.49 K/ L 0.24-0.36 EOSINOPHILS ABSOLUTE COUNT (BEAKER) (test 0.14 K/ L 0.04-0.36 ozar=720) BASOPHILS ABSOLUTE COUNT (BEAKER) (test dlhf=387) 0.06 K/ L 0.01-0.08 IMMATURE GRANULOCYTES-RELATIVE PERCENT (BEAKER) 0 % 0-1 (test moor=2900) COMPREHENSIVE METABOLIC [id number] 14:28:00 Test Item Value Reference Range Comments TOTAL PROTEIN (BEAKER) 7.6 gm/dL 6.0-8.3 (test votd=190) ALBUMIN (BEAKER) (test 3.6 g/dL 3.5-5.0 lwnu=0495) ALKALINE PHOSPHATASE 144 U/L 40-150 (BEAKER) (test aasz=501) BILIRUBIN TOTAL (BEAKER) 1.1 mg/dL 0.2-1.2 (test polf=680) SODIUM (BEAKER) (test 135 meq/L 136-145 yiap=536) POTASSIUM (BEAKER) (test 3.6 meq/L 3.5-5.1 xbvg=136) CHLORIDE (BEAKER) (test 103 meq/L 98-107 dhrf=596) CO2 (BEAKER) (test 22 meq/L 22-29 hsvn=430) BLOOD UREA NITROGEN 16 mg/dL 7-21 (BEAKER) (test kpzs=839) CREATININE (BEAKER) (test 1.82 mg/dL 0.57-1.25 txlb=711) GLUCOSE RANDOM (BEAKER) 102 mg/dL 70-105 (test ywss=719) CALCIUM (BEAKER) (test 9.1 mg/dL 8.4-10.2 qpis=033) AST (SGOT) (BEAKER) (test 39 U/L 5-34 uvju=944) ALT (SGPT) (BEAKER) (test 14 U/L 6-55 efxr=545) EGFR (BEAKER) (test 30 mL/min/1.73 sq m ESTIMATED GFR IS NOT gbis=8590) ACCURATE CREATININE CLEARANCE IN PREDICTING GLOMERULAR FILTRATION RATE. ESTIMATED GFR IS NOT APPLICABLE FOR DIALYSIS PATIENTS. BILIRUBIN, [id number] 14:28:00 Test Item Value Reference Range Comments BILIRUBIN DIRECT (BEAKER) (test bssc=580) 0.6 mg/dL 0.1-0.5 IRON, TIBC, % SAT. (WITHOUT FERRITIN)2017-11-27 14:26:00 Test Item Value Reference Range Comments IRON (BEAKER) (test lmjf=179) 37 ug/dL 40-160 TOTAL IRON BINDING CAPACITY (BEAKER) (test 219 ug/dL 250-450 mcfu=968) IRON % SATURATION (2) (BEAKER) (test bfis=2773) 17 % 20-55 [id number] 14:25:00 Test Item Value Reference Range Comments ALPHA-1 ANTITRYPSIN (BEAKER) (test xupb=206) 151.80 mg/dL 90.00-200.00 PROTHROMBIN [id number] 14:03:00 Test Item Value Reference Range Comments PROTIME (BEAKER) (test bmkl=458) 17.2 seconds 11.7-14.7 INR (BEAKER) (test boat=928) 1.4 <=5.9 RECOMMENDED COUMADIN/WARFARIN INR THERAPY RANGESSTANDARD DOSE: 2.0 - 3.0 Includes: PROPHYLAXIS forvenous thrombosis, systemic embolization; TREATMENT for venous thrombosis and/or pulmonary embolus.HIGH RISK: Target INR is 2.5-3.5 for patients with mechanical heart valves.
--- OUTSIDE RECORDS SUMMARY | 2018-01-07 09:02 | XMS REPORT | Clinical Summary ---
:1970 Author Organization [facility] Address [address] [place] [address] Phone Care Team Providers Name Role Phone [...] test for immunity to both viruses - [facility] recommendations will follow. Portal hypertension (HCC) 11/27/2017 [...] malignant neoplasm;Immunity status testing;Portal hypertension (HCC) after 01/06/2017 Social History Tobacco Use Types Packs/Day Years [...] 11/27/2017 11:48 AM CDT Plan of Treatment Health Maintenance Due Date Last Done Comments INFLUENZA VACCINE 05/05/2018 Results Hepatitis A antibody, IgG (11/27/2017 1:34 PM) Component Value Ref Range Hep A IgG Nonreactive Nonreactive Specimen Performing Laboratory Blood [address] [address] Mitochondrial Antibodies, M2 (11/27/2017 1:34 PM) Component Value Ref Range Mitochondria M2 Ab <20.0 See Note: U Comment: Reference Range: NEGATIVE:< OR=20.0 EQUIVOCAL: 20.1-24.9 POSITIVE:> OR=25.0 Specimen Performing Laboratory Blood [facility] [address] [address] Narrative Performing Lab EZ [facility] [address] [address] I Kamla BULLOCK, PhD, ABIMBOLA Iron, TIBC, % sat. (without ferritin) (11/27/2017 1:34 PM) Component Value Ref Range Iron 37 (L) 40 - 160 ug/dL TIBC 219 (L) 250 - 450 ug/dL Iron % Saturation 17 (L) 20 - 55 % Specimen Performing Laboratory Blood [address] [address] CBC with platelet count + automated diff [...] - 1 % Specimen Performing Laboratory Blood [address] [address] Hepatitis C antibody (11/27/2017 1:34 PM) Component Value Ref Range Hepatitis C Ab Nonreactive Nonreactive Specimen Performing Laboratory [address] [address] Actin (Smooth Muscle) Antibody, IgG (11/27/2017 1:34 [...] Specimen Performing Laboratory Blood [facility] [address] [address] Narrative Performing Lab EZ [facility] [address] [address] Lizette Cason MD, PhD, ABIMBOLA [id number]-5-[id number] (11/27/2017 1:34 PM) Component Value Ref Range A-1 Antitrypsin 151.80 90.00 - 200.00 mg/dL Specimen Performing Laboratory Blood [address] [address] LÓPEZ Titer & Pattern (11/27/2017 1:34 PM) Component Value Ref Range LÓPEZ Titer 1:40 LÓPEZ Pattern Speckled Specimen Performing Laboratory [address] [address] Ceruloplasmin (11/27/2017 1:34 PM) Component Value Ref Range Ceruloplasmin 25 18 - 53 mg/dL Comment: Adults:Males: 18-36 mg/dL Females: 18-53 mg/dL Pediatrics:Males (mg/dL)Females (mg/dL) 0-30 Days 8-25 3-28 31 Days-11 Month 15-43 1-3 [id number] 4-6 [id number] 7-9 [id number] 10-12 [id number] 13-15 [id number] 16-18 [id number] The pediatric ranges are derived from the following criteria: Yehuda SJ, Buck MERCHANT, Lorna J et al Pediatric reference ranges for Qytp-8-Afctclaevmnzv and ceruloplasmin. Clin. Chem 1997; 43:S1999 Pediatric Reference Ranges, 2nd., [place] Yehudaet al. editors. [employer], [place], [place] 1997. Specimen Performing Laboratory Blood [facility] [address] [address] Narrative Performing Lab *SPL [facility], [address] [place] [phone] Florencia Almanzar MD, PhD Alpha fetoprotein (AFP), tumor marker (11/27/2017 1:34 PM) Component Value Ref Range Alpha-Fetoprotein 4.9 <10.0 ng/mL Specimen Performing Laboratory Blood [address] [address] Hepatitis B core antibody, total (11/27/2017 1:34 PM) Component Value Ref Range Hep B Core Total Ab Nonreactive Nonreactive Specimen Performing Laboratory Blood [address] [address] Hepatitis B surface antibody (11/27/2017 1:34 PM) Component Value Ref Range Hep B S Ab <8.0 <8.0 mIU/mL Specimen Performing Laboratory Blood [address] [address] Hepatitis B surface antigen (11/27/2017 1:34 PM) Component Value Ref Range hepatitis B Surface Ag Nonreactive Nonreactive Specimen Performing Laboratory Blood [address] [address] Pro-time/INR (11/27/2017 1:34 PM) Component Value Ref Range Protime 17.2 (H) 11.7 - 14.7 seconds INR 1.4 <=5.9 Specimen Performing Laboratory Blood [address] [address] Narrative RECOMMENDED COUMADIN/WARFARIN INR THERAPY RANGES STANDARD [...] Status --------- ------ CBC with platelet count ...[[id number]]AbnormalFinal result Please view results for these tests on the individual orders. Anti-Nuclear Antibody (LÓPEZ) (11/27/2017 1:34 PM) Component Value Ref Range LÓPEZ Positive (A) Negative Specimen Performing Laboratory [address] [address] Ferritin (11/27/2017 1:34 PM) Component Value Ref Range Ferritin 237 5 - 275 ng/mL Specimen Performing Laboratory Blood [address] [address] Bilirubin, direct (11/27/2017 1:34 PM) Component Value Ref Range Bilirubin, Direct 0.6 (H) 0.1 - 0.5 mg/dL Specimen Performing Laboratory [address] [address] Comprehensive Metabolic Panel (11/27/2017 1:34 PM) Component [...] DIALYSIS PATIENTS. Specimen Performing Laboratory Blood [facility] [address] [place] [address] after 01/06/2017
[2018-01-07] MEDS ORDERED: ONDANSETRON 4 MG/2 ML VIAL ONE (09:58)
[2018-01-07 10:12] LABS: Absolute Lymphocytes (CBC) 0.2 K/uL (0.7-4.9); Absolute Monocytes 0.4 K/uL (0.1-1.3); Basophils % 1.9 % (0-1.3); Eosinophils % 6.7 % (0-4.4); Hematocrit 28.9 % (36.0-45.0); MCH 32.4 pg (27.0-35.0); MCV 97.3 fL (80-100); MPV 9.3 fL (7.6-11.3); Monocytes % 9.8 % (3.3-12.3); RBC Red Blood Cell Count 2.97 M/uL (3.86-4.86)
[2018-01-07 10:32] LABS: Albumin 3.4 g/dL (3.2-5.5); Bilirubin Direct 0.4 mg/dL (0-0.2); Bilirubin Total 1.3 mg/dL (0.3-1.2); Protein, Total 7.2 g/dL (6.0-8.3)
[2018-01-07 10:35] LABS: Potassium 2.4 mEq/L (3.6-5.0)
[2018-01-07] MEDS ORDERED: NA CHLORIDE 0.9% 500 ML ONE (10:57)
[2018-01-07] MEDS ORDERED: KCL 20 MEQ/100 mL IVPB 20 MEQ/100 ML BAG IV ONE (10:58)
[2018-01-07] MEDS ORDERED: MEPERIDINE HCL 25 MG/0.5 ML ONE (11:17)
--- NOTE | 2018-01-07 12:31 | RAD REPORT ---
EXAM DESCRIPTION: CT - Abdomen Pelvis W Contrast - 01/07/2018 11:55 am CLINICAL HISTORY: Abdominal pain. COMPARISON: None. TECHNIQUE: Computed axial tomography of the abdomen and pelvis was obtained. 100 cc Isovue-300 is ad ministered intravenously. Oral contrast was given. All CT scans are performed using dose optimization technique as appropriate and may include automated exposure control or mA/KV adjustment according to patient size. FINDINGS: A cirrhotic liver is present. Fibrosis is present. The liver is inhomogeneous. Cavernous transformati on of the portal vein is suspected varices are present within the abdomen. Paraesophageal varices are seen. The spleen is mildly enlarged. The pancreas, adrenals and kidneys appear unremarkable. Gallstones are seen without gallbladder wall thickening. A large amount of ascites is present within the abdomen and pelvis. A right ventral hernia contains ascites. IMPRESSION: Cirrhosis with large amount of ascites. Fibrosis is present. Low-density areas within t he liver may represent a combination of inflammation fibrosis. Underlying neoplasm within the right l obe of the liver could also have this appearance. A right ventral hernia contains ascites Cholelithiasis without evidence of cholecystitis
--- NOTE | 2018-01-07 13:04 | EDPHYS ---
Physician Documentation [facility] Name: Amauri Miller Age: 47 yrs Sex: Female : 1970 Arrival Date: 01/07/2018 Time: 09:01 Bed 26 Private MD: Tray Leigh H ED Physician Tank Lee HPI: 01/07 11:23 This 47 yrs old Female presents to ER via Ambulatory with complaints of rn Hernia. 11:23 The patient presents with abdominal pain. The patient presents with abdominal rn distention. Onset: The symptoms/episode began/occurred at an unknown time. Associated signs and symptoms: Pertinent positives: constipation, nausea, Pertinent negatives: blood in stools, vomiting blood. Modifying factors: The symptoms are alleviated by nothing, the symptoms are aggravated by nothing. Severity of pain: At its worst the pain was moderate in the emergency department the pain is unchanged. The patient has experienced similar episodes in the past. Reports abd pain and distension, hasn't had paracentesis in 2 weeks, has cirrhosis, long standing hernia but hurts worse today, + constipation and nausea, no fever. . Historical: - Allergies: 09:14 No Known Allergies; aa5 - PMHx: 09:14 Anemia; Cirrhosis; esophageal varices; Hernia; second one, not repaired; aa5 - Immunization history:: Adult Immunizations up to date. - Social history:: Smoking status: Patient uses tobacco products, 2-3 cigarettes a day . - Ebola Screening: : No symptoms or risks identified at this time. - Family history:: not pertinent. - Hospitalizations: : No recent hospitalization is reported. ROS: 11:23 Constitutional: Negative for fever, chills, and weight loss, Eyes: Negative for injury, rn pain, redness, and discharge, Neck: Negative for injury, pain, and swelling, Cardiovascular: Negative for chest pain, palpitations, and edema, Respiratory: Negative for shortness of breath, cough, wheezing, and pleuritic chest pain, Abdomen/GI: Negative for vomiting, diarrhea MS/Extremity: Negative for injury and deformity, Skin: Negative for injury, rash, and discoloration, Neuro: Negative for headache, weakness, numbness, tingling, and seizure. Exam: 11:23 Constitutional: Thin female with protruberant abdomen Head/Face: Normocephalic, rn atraumatic. Neck: Trachea midline, no thyromegaly or masses palpated, and no cervical lymphadenopathy. Supple, full range of motion without nuchal rigidity, or vertebral point tenderness. No Meningismus. Cardiovascular: Regular rate and rhythm with a normal S1 and S2. No gallops, murmurs, or rubs. Normal PMI, no JVD. No pulse deficits. Respiratory: Lungs have equal breath sounds bilaterally, clear to auscultation and percussion. No rales, rhonchi or wheezes noted. No increased work of breathing, no retractions or nasal flaring. Abdomen/GI: distended abdomen with large ventral hernia, + tenderness, no peritoneal signs Skin: Warm, dry and no evidence of cellulitis. MS/ Extremity: Pulses equal, no cyanosis. Neurovascular intact. Full, normal range of motion. Equal circumference. Neuro: Awake and alert, GCS 15, oriented to person, place, time, and situation. Cranial nerves II-XII grossly intact. Motor strength 5/5 in all extremities. Sensory grossly intact. Cerebellar exam normal. Normal gait. Vital Signs: 09:15 BP 103 / 78; Pulse 107; Resp 18 S; Temp 98.6(O); Pulse Ox 100% on R/A; Weight 61.69 kg aa5 (R); Height 5 ft. 6 in. (167.64 cm) (R); Pain 10/10; 10:00 BP 112 / 81; Pulse 86; Resp 18; Pulse Ox 99% ; aj1 11:00 BP 108 / 77; Pulse 88; Resp 16; Pulse Ox 98% on R/A; aj1 12:00 BP 100 / 72; Pulse 80; Resp 18; Pulse Ox 99% ; aj1 13:55 BP 107 / 72; Pulse 76; Resp 18; Pulse Ox 99% on R/A; aj1 09:15 Body Mass Index 21.95 (61.69 kg, 167.64 cm) aa5 MDM: 09:30 Patient medically screened. rn 13:02 Differential diagnosis: non-specific abd pain, ascites, incarcerated hernia, abd rn distension, constipation. Data reviewed: vital signs, nurses notes, lab test result(s), radiologic studies, CT scan, and as a result, I will admit patient. Counseling: I had a detailed discussion with the patient and/or guardian regarding: the historical points, exam findings, and any diagnostic results supporting the discharge/admit diagnosis, lab results, radiology results, the need for further work-up and treatment in the hospital. Admission orders: after a detailed discussion of the patient's condition and case, the admit orders are written by me. ED course: Pt with generalized ascites, + distension and firm, afebrile, no sign of incarcerated hernia, will admit for paracentesis, sees dr serna.. 13:19 Refusal of service: The patient/guardian displays adequate decision making capability rn and despite a detailed discussion of alternatives, benefits, risks, and consequences refuses: Admission to the hospital for further work-up and treatment. ED course: Pt states has outpt paracentesis scheduled tomorrow, wants to go home. . 01/07 09:44 Order name: Basic Metabolic Panel; Complete Time: 10:36 rn 01/07 09:44 Order name: CBC with Diff; Complete Time: 10:36 rn 01/07 09:44 Order name: Creatinine for Radiology; Complete Time: 10:36 rn 01/07 09:44 Order name: Hepatic Function; Complete Time: 10:36 rn 01/07 09:44 Order name: Lipase; Complete Time: 10:36 rn 01/07 09:45 Order name: CT Abd/Pelvis - W/Contrast; Complete Time: 12:33 rn 01/07 09:44 Order name: IV Saline Lock; Complete Time: 09:52 rn 01/07 09:44 Order name: Labs collected and sent; Complete Time: 09:52 rn Administered Medications: 10:02 Drug: Zofran 4 mg Route: IVP; Site: PICC; aj1 10:53 CANCELLED (Physician Discretion): Potassium Chloride 10 mEq IV at calculated rate once; aa5 administer over 1-2 hours 11:01 Drug: NS 0.9% 500 ml Route: IV; Rate: bolus; Site: PICC; aj1 11:01 Drug: Potassium Chloride 20 mEq Route: IV; Rate: calculated rate; Site: PICC; aj1 11:20 Drug: Demerol 25 mg Route: IVP; Site: PICC; aj1 Disposition: 01/07/18 13:20 Discharged to Home. Impression: Ascites, Ventral hernia. - Condition is Stable. - Discharge Instructions: Ascites. - Medication Reconciliation Form, Thank You Letter, Antibiotic Education, Prescription Opioid Use form. - Follow up: Private Physician; When: Tomorrow; Reason: Recheck today's complaints, Re-evaluation by your physician. - Problem is an ongoing problem. - Symptoms are unchanged. Signatures: Dispatcher [employer] [facility] Claudia Conn, RN RN aj1 Tank Lee MD MD rn Calderon, Audri, RN RN aa5 Corrections: (The following items were deleted from the chart) 10:53 10:37 Potassium Chloride 10 mEq IV at calculated rate once; administer over 1-2 hours aa5 ordered. rn 10:53 10:53 Potassium Chloride 10 mEq IV at calculated rate once; administer over 1-2 hours aa5 ordered. aa5 13:20 09:44 UA MICROSCOPIC+U.LAB.BRZ ordered. [facility] 13:20 13:19 CONS Physician Consult ordered. [facility] 13:20 13:19 Heart Healthy ordered. [facility] 13:20 13:04 Hospitalization Ordered by Rosie Kenney MD for Observation. Preliminary rn diagnosis is Ascites; Unspecified cirrhosis of liver. Bed requested for Telemetry/MedSurg (observation). Status is Observation. Condition is Stable. Problem is an ongoing problem. Symptoms have improved. UTI on Admission? No. rn 13:58 13:20 01/07/2018 13:20 Discharged to Home. Impression: Ascites; Ventral hernia. aj1 Condition is Stable. Forms are Medication Reconciliation Form, Thank You Letter, Antibiotic Education, Prescription Opioid Use. Follow up: Private Physician; When: Tomorrow; Reason: Recheck today's complaints, Re-evaluation by your physician. Problem is an ongoing problem. Symptoms are unchanged. rn
--- NOTE | 2018-01-07 13:04 | ER ---
Nurse's Notes [facility] Name: Amauri Miller Age: 47 yrs Sex: Female : 1970 Arrival Date: 01/07/2018 Time: 09:01 Bed 26 Private MD: Tray Leigh H Diagnosis: Ascites;Ventral hernia Presentation: 01/07 09:10 Presenting complaint: Patient states: "my abdomen is swelling up and it's pushing my aa5 hernia out and it's very painful". Pt reports last paracentesis was 2 weeks ago. Pt also c/o SOB. 09:10 Transition of care: patient was not received from another setting of care. Onset of aa5 symptoms was January 2018. Risk Assessment: Do you want to hurt yourself or someone else? Patient reports no desire to harm self or others. Initial Sepsis Screen: Does the patient meet any 2 criteria? No. Patient's initial sepsis screen is negative. Does the patient have a suspected source of infection? No. Patient's initial sepsis screen is negative. Care prior to arrival: None. 09:10 Method Of Arrival: Ambulatory aa5 09:10 Acuity: CASI 3 aa5 Historical: - Allergies: 09:14 No Known Allergies; aa5 - PMHx: 09:14 Anemia; Cirrhosis; esophageal varices; Hernia; second one, not repaired; aa5 - Immunization history:: Adult Immunizations up to date. - Social history:: Smoking status: Patient uses tobacco products, 2-3 cigarettes a day . - Ebola Screening: : No symptoms or risks identified at this time. - Family history:: not pertinent. - Hospitalizations: : No recent hospitalization is reported. Screenin:15 Abuse screen: Denies threats or abuse. Denies injuries from another. Nutritional aj1 screening: No deficits noted. Tuberculosis screening: No symptoms or risk factors identified. 13:58 Fall Risk None identified. aj1 Assessment: 09:15 General: Appears in no apparent distress. uncomfortable, Behavior is calm, cooperative, aj1 appropriate for age. Pain: Complains of pain in abdomen diffusely Pain does not radiate. Pain currently is 10 out of 10 on a pain scale. Quality of pain is described as pressure, Is continuous, Alleviated by nothing. Aggravated by repositioning, Noted to be guarding. Neuro: Level of Consciousness is awake, alert, obeys commands, Oriented to person, place, time, situation, Speech is normal. Cardiovascular: Patient's skin is warm and dry. Respiratory: Airway is patent Respiratory effort is even, unlabored, Respiratory pattern is regular, symmetrical. GI: Abdomen is distended, Abd is non tender X 4 quads Abd is rigid X 4 quads. Reports nausea, vomiting. : No signs and/or symptoms were reported regarding the genitourinary system. EENT: No signs and/or symptoms were reported regarding the EENT system. Derm: No signs and/or symptoms reported regarding the dermatologic system. Skin is pink, warm \\T\\ dry. normal. Musculoskeletal: No signs and/or symptoms reported regarding the musculoskeletal system. Circulation, motion, and sensation intact. 10:15 Reassessment: Notified CT that patient has finished drinking contrast. aj1 10:15 Reassessment: Patient appears in no apparent distress at this time. No changes from aj1 previously documented assessment. Patient and/or family updated on plan of care and expected duration. Pain level reassessed. Patient is alert, oriented x 3, equal unlabored respirations, skin warm/dry/pink. 11:15 Reassessment: Patient appears in no apparent distress at this time. No changes from aj1 previously documented assessment. Patient and/or family updated on plan of care and expected duration. Pain level reassessed. Patient is alert, oriented x 3, equal unlabored respirations, skin warm/dry/pink. 11:15 Reassessment: Patient states that she is still in a lot of pain and would like some [facility] pain medication. Notified Dr. Lee. Order recieved. 12:32 Reassessment: Patient appears in no apparent distress at this time. No changes from aj1 previously documented assessment. Patient and/or family updated on plan of care and expected duration. Pain level reassessed. Patient is alert, oriented x 3, equal unlabored respirations, skin warm/dry/pink. 13:42 Reassessment: Patient appears in no apparent distress at this time. No changes from aj1 previously documented assessment. Patient and/or family updated on plan of care and expected duration. Pain level reassessed. Patient is alert, oriented x 3, equal unlabored respirations, skin warm/dry/pink. 13:57 Reassessment: Dressing to PICC on left arm changed using sterile technique. Patient aj1 tolerated well. Vital Signs: 09:15 BP 103 / 78; Pulse 107; Resp 18 S; Temp 98.6(O); Pulse Ox 100% on R/A; Weight 61.69 kg aa5 (R); Height 5 ft. 6 in. (167.64 cm) (R); Pain 10/10; 10:00 BP 112 / 81; Pulse 86; Resp 18; Pulse Ox 99% ; aj1 11:00 BP 108 / 77; Pulse 88; Resp 16; Pulse Ox 98% on R/A; aj1 12:00 BP 100 / 72; Pulse 80; Resp 18; Pulse Ox 99% ; aj1 13:55 BP 107 / 72; Pulse 76; Resp 18; Pulse Ox 99% on R/A; aj1 09:15 Body Mass Index 21.95 (61.69 kg, 167.64 cm) aa5 ED Course: 09:01 Patient arrived in ED. mr 09:01 Tray Leigh MD is Private Physician. mr 09:10 Arm band placed on Patient placed in an exam room, on a stretcher. aa5 09:15 Triage completed. aa5 09:15 Patient has correct armband on for positive identification. Bed in low position. Call aj1 light in reach. Side rails up X 1. 09:15 No provider procedures requiring assistance completed. aj1 09:15 Accessed PICC line. using per hospital protocol. Clean \\T\\ dry. Dressing intact. Good aj1 blood return. Flushes easily. 09:30 Tank Lee MD is Attending Physician. rn 09:52 Claudia Conn RN is Primary Nurse. aj1 11:55 CT Abd/Pelvis - W/Contrast In Process Unspecified. EDCO 11:55 CT completed. Patient tolerated procedure well. Patient moved to CT via wheelchair. vr Patient moved back from CT. 13:03 Rosie Kenney MD is Hospitalizing Provider. rn 13:57 PICC line flushed and wrapped with SANTANA wrap per protocol. aj1 Administered Medications: 10:02 Drug: Zofran 4 mg Route: IVP; Site: PICC; aj1 10:53 CANCELLED (Physician Discretion): Potassium Chloride 10 mEq IV at calculated rate once; aa5 administer over 1-2 hours 11:01 Drug: NS 0.9% 500 ml Route: IV; Rate: bolus; Site: PICC; aj1 11:01 Drug: Potassium Chloride 20 mEq Route: IV; Rate: calculated rate; Site: PICC; aj1 11:20 Drug: Demerol 25 mg Route: IVP; Site: PICC; aj1 Outcome: 13:04 Decision to Hospitalize by Provider. rn 13:20 Discharge ordered by MD. rn 13:58 Discharged to home ambulatory. aj1 13:58 Condition: good 13:58 Discharge instructions given to patient, Instructed on discharge instructions, follow up and referral plans. Demonstrated understanding of instructions, follow-up care. 13:58 Patient left the ED. aj1 Signatures: Dispatcher [employer] EDClaudia Mcpherson RN RN aj1 Yasmeen Pacheco Roman, MD MD rn Calderon, Audri, RN RN aa5 Lori Capellan
[2018-01-07] MEDS ORDERED: ONDANSETRON 4 MG/2 ML VIAL IV PRN (13:16)
[2018-01-07 14:18] VITALS: TEMP 98.6
[2018-01-07 14:22] VITALS: O2SAT 99
[2018-01-07 14:23] VITALS: BP 107/72
[2018-01-08] MEDS ORDERED: CEFTRIAXONE 1 GM/NS 50 ML 1 GM/50 ML BAG IV SCH (09:00)
== END 2018-01-07 13:58 | disposition home or self-care (01) ==
LOC: ER 08:58
DX: R18.8 Other ascites (principal); K43.9 Ventral hernia without obstruction or gangrene; K74.60 Unspecified cirrhosis of liver; Z72.0 Tobacco use
CPT/HCPCS: 36415; 74177; 80048; 80076; 83690; 85025; 96374; 96375; 99284; J2175; J2405; Q9967

== ENCOUNTER 2018-02-09 18:06 | Emergency (ER) | payer MEDICAID ==
--- OUTSIDE RECORDS SUMMARY | 2018-02-09 18:08 | XMS REPORT | Clinical Summary ---
:1970 Author Organization [facility] Address [address] [place] [address] Phone Care Team Providers Name Role Phone [...] test for immunity to both viruses - [facility] recommendations will follow. Portal hypertension (HCC) [...] malignant neoplasm;Immunity status testing;Portal hypertension (HCC) after 02/08/2017 Social History Tobacco Use Types Packs/Day Years [...] IgG Nonreactive Nonreactive Specimen Performing Laboratory Blood [address] [address] Mitochondrial Antibodies, M2 (11/27/2017 1:34 PM) Component Value Ref Range Mitochondria M2 Ab <20.0 See Note: U Comment: Reference Range: NEGATIVE:< OR=20.0 EQUIVOCAL: 20.1-24.9 POSITIVE:> OR=25.0 Specimen Performing Laboratory Blood [facility] [address] [address] Narrative Performing Lab EZ [facility] [address] [address] I Kamla BULLOCK, PhD, ABIMBOLA Iron, TIBC, % sat. (without ferritin) (11/27/2017 1:34 PM) Component Value Ref Range Iron 37 (L) 40 - 160 ug/dL TIBC 219 (L) 250 - 450 ug/dL Iron % Saturation 17 (L) 20 - 55 % Specimen Performing Laboratory Blood [address] [address] CBC with platelet count + automated diff [...] - 1 % Specimen Performing Laboratory Blood [address] [address] Hepatitis C antibody (11/27/2017 1:34 PM) Component Value Ref Range Hepatitis C Ab Nonreactive Nonreactive Specimen Performing Laboratory [address] [address] Actin (Smooth Muscle) Antibody, IgG (11/27/2017 1:34 [...] Specimen Performing Laboratory Blood [facility] [address] [address] Narrative Performing Lab EZ [facility] [address] [address] Lizette Cason MD, PhD, ABIMBOLA Fcady-5-Yiwyazgvwpz (11/27/2017 1:34 PM) Component Value Ref Range A-1 Antitrypsin 151.80 90.00 - 200.00 mg/dL Specimen Performing Laboratory Blood [address] [address] LÓPEZ Titer & Pattern (11/27/2017 1:34 PM) Component Value Ref Range LÓPEZ Titer 1:40 LÓPEZ Pattern Speckled Specimen Performing Laboratory [address] [address] Ceruloplasmin (11/27/2017 1:34 PM) Component Value Ref Range Ceruloplasmin 25 18 - 53 mg/dL Comment: Adults:Males: 18-36 mg/dL Females: 18-53 mg/dL Pediatrics:Males (mg/dL)Females (mg/dL) 0-30 Days 8-25 3-28 31 Days-11 Month 15-43 1-3 [id number] 4-6 [id number] 7-9 [id number] 10-12 [id number] 13-15 [id number] 16-18 [id number] The pediatric ranges are derived from the following criteria: Yehuda SJ, Buck MERCHANT, Lorna J et al Pediatric reference ranges for Cdxe-7-Sufjwizksuczw and ceruloplasmin. Clin. Chem 1997; 43:S1999 Pediatric Reference Ranges, 2nd., [place] Yehudaet al. editors. [employer], [place], [place] 1997. Specimen Performing Laboratory Blood [facility] [address] [address] Narrative Performing Lab *SPL [facility], [address] [place] [id number] Florencia Almanzar MD, PhD Alpha fetoprotein (AFP), tumor marker (11/27/2017 1:34 PM) Component Value Ref Range Alpha-Fetoprotein 4.9 <10.0 ng/mL Specimen Performing Laboratory Blood [address] [address] Hepatitis B core antibody, total (11/27/2017 1:34 PM) Component Value Ref Range Hep B Core Total Ab Nonreactive Nonreactive Specimen Performing Laboratory Blood [address] [address] Hepatitis B surface antibody (11/27/2017 1:34 PM) Component Value Ref Range Hep B S Ab <8.0 <8.0 mIU/mL Specimen Performing Laboratory Blood [address] [address] Hepatitis B surface antigen (11/27/2017 1:34 PM) Component Value Ref Range hepatitis B Surface Ag Nonreactive Nonreactive Specimen Performing Laboratory Blood [address] [address] Pro-time/INR (11/27/2017 1:34 PM) Component Value Ref Range Protime 17.2 (H) 11.7 - 14.7 seconds INR 1.4 <=5.9 Specimen Performing Laboratory Blood [address] [address] Narrative RECOMMENDED COUMADIN/WARFARIN INR THERAPY RANGES STANDARD [...] Status --------- ------ CBC with platelet count ...[[id number]]AbnormalFinal result Please view results for these tests on the individual orders. Anti-Nuclear Antibody (LÓPEZ) (11/27/2017 1:34 PM) Component Value Ref Range LÓPEZ Positive (A) Negative Specimen Performing Laboratory [address] [address] Ferritin (11/27/2017 1:34 PM) Component Value Ref Range Ferritin 237 5 - 275 ng/mL Specimen Performing Laboratory Blood [address] [address] Bilirubin, direct (11/27/2017 1:34 PM) Component Value Ref Range Bilirubin, Direct 0.6 (H) 0.1 - 0.5 mg/dL Specimen Performing Laboratory [address] [address] Comprehensive Metabolic Panel (11/27/2017 1:34 PM) Component [...] DIALYSIS PATIENTS. Specimen Performing Laboratory Blood [facility] [address] [place] [address] after 02/08/2017
--- OUTSIDE RECORDS SUMMARY | 2018-02-09 18:08 | XMS REPORT ---
:1970 [facility] Address [facility] [place] [address] [place] [address] Care Team Providers Name Role Phone RAMON [...] Range Comments ANTI-NUCLEAR ANTIBODY (LÓPEZ) (BEAKER) (test vjth=483) Positive Negative LÓPEZ TITER AND [id number] 09:50:00 Test Item Value Reference Range Comments LÓPEZ TITER (BEAKER) (test ybsh=8412) :40 LÓPEZ PATTERN (BEAKER) (test yltk=1011) Speckled [id number] 15:34:00 Test Item Value Reference Range Comments FERRITIN (BEAKER) (test zoco=947) 237 ng/mL 5-275 HEPATITIS B SURFACE [id number] 14:54:00 Test Item Value Reference Range Comments HEPATITIS B SURFACE ANTIBODY (BEAKER) (test < mIU/mL <8.0 oazm=460) HEPATITIS B SURFACE [id number] 14:49:00 Test Item Value Reference Range Comments HEPATITIS B SURFACE ANTIGEN (2) (BEAKER) (test Nonreactive Nonreactive jrwu=8610) HEPATITIS C [id number] 14:49:00 Test Item Value Reference Range Comments HEPATITIS C ANTIBODY (BEAKER) (test cnwz=219) Nonreactive Nonreactive ALPHA FETOPROTEIN (AFP), TUMOR [id number] 14:48:00 Test Item Value Reference Range Comments ALPHA-FETOPROTEIN (BEAKER) (test ufxs=5767) 4.9 ng/mL <10.0 HEPATITIS B CORE ANTIBODY, [id number] 14:48:00 Test Item Value Reference Range Comments HEPATITIS B CORE TOTAL ANTIBODY (BEAKER) (test Nonreactive Nonreactive pbss=720) HEPATITIS A ANTIBODY, [id number] 14:48:00 Test Item Value Reference Range Comments HEPATITIS A IGG ANTIBODY (BEAKER) (test Nonreactive Nonreactive fwzm=8448) CBC W/PLT COUNT & AUTO [id number] 14:30:00 Test Item Value Reference Range Comments WHITE BLOOD CELL COUNT (BEAKER) (test sday=617) 5.2 K/ L 3.5-10.5 RED BLOOD CELL COUNT (BEAKER) (test ewiq=663) 2.96 M/ L 3.93-5.22 HEMOGLOBIN (BEAKER) (test tsrt=018) 9.7 GM/DL 11.2-15.7 HEMATOCRIT (BEAKER) (test royf=159) 31.0 % 34.1-44.9 MEAN CORPUSCULAR VOLUME (BEAKER) (test ctfv=722) 104.7 fL 79.4-94.8 MEAN CORPUSCULAR HEMOGLOBIN (BEAKER) (test 32.8 pg 25.6-32.2 wnma=279) MEAN CORPUSCULAR HEMOGLOBIN CONC (BEAKER) (test 31.3 GM/DL 32.2-35.5 bybt=579) RED CELL DISTRIBUTION WIDTH (BEAKER) (test 17.8 % 11.7-14.4 cuzf=137) PLATELET COUNT (BEAKER) (test aucd=091) 92 K/CU MM 150-450 MEAN PLATELET VOLUME (BEAKER) (test jknp=569) 10.3 fL 9.4-12.3 NUCLEATED RED BLOOD CELLS (BEAKER) (test 0 /100 WBC 0-0 wbze=544) NEUTROPHILS RELATIVE PERCENT (BEAKER) (test 81 % hebf=763) LYMPHOCYTES RELATIVE PERCENT (BEAKER) (test 6 % qvqv=020) MONOCYTES RELATIVE PERCENT (BEAKER) (test 9 % ltpo=602) EOSINOPHILS RELATIVE PERCENT (BEAKER) (test 3 % giix=640) BASOPHILS RELATIVE PERCENT (BEAKER) (test 1 % enbp=455) NEUTROPHILS ABSOLUTE COUNT (BEAKER) (test 4.23 K/ L 1.56-6.13 olag=327) LYMPHOCYTES ABSOLUTE COUNT (BEAKER) (test 0.29 K/ L 1.18-3.74 wnhk=434) MONOCYTES ABSOLUTE COUNT (BEAKER) (test hdvy=439) 0.49 K/ L 0.24-0.36 EOSINOPHILS ABSOLUTE COUNT (BEAKER) (test 0.14 K/ L 0.04-0.36 zrja=977) BASOPHILS ABSOLUTE COUNT (BEAKER) (test qzyc=258) 0.06 K/ L 0.01-0.08 IMMATURE GRANULOCYTES-RELATIVE PERCENT (BEAKER) 0 % 0-1 (test fspv=7393) COMPREHENSIVE METABOLIC [id number] 14:28:00 Test Item Value Reference Range Comments TOTAL PROTEIN (BEAKER) 7.6 gm/dL 6.0-8.3 (test nnxg=736) ALBUMIN (BEAKER) (test 3.6 g/dL 3.5-5.0 larb=7697) ALKALINE PHOSPHATASE 144 U/L 40-150 (BEAKER) (test kqpe=707) BILIRUBIN TOTAL (BEAKER) 1.1 mg/dL 0.2-1.2 (test maab=685) SODIUM (BEAKER) (test 135 meq/L 136-145 lsnl=137) POTASSIUM (BEAKER) (test 3.6 meq/L 3.5-5.1 fltd=154) CHLORIDE (BEAKER) (test 103 meq/L 98-107 qbde=626) CO2 (BEAKER) (test 22 meq/L 22-29 xenw=014) BLOOD UREA NITROGEN 16 mg/dL 7-21 (BEAKER) (test aslw=233) CREATININE (BEAKER) (test 1.82 mg/dL 0.57-1.25 panj=713) GLUCOSE RANDOM (BEAKER) 102 mg/dL 70-105 (test wgrv=048) CALCIUM (BEAKER) (test 9.1 mg/dL 8.4-10.2 squb=961) AST (SGOT) (BEAKER) (test 39 U/L 5-34 aovg=338) ALT (SGPT) (BEAKER) (test 14 U/L 6-55 tbms=324) EGFR (BEAKER) (test 30 mL/min/1.73 sq m ESTIMATED GFR IS NOT htdh=1704) ACCURATE CREATININE CLEARANCE IN PREDICTING GLOMERULAR FILTRATION RATE. ESTIMATED GFR IS NOT APPLICABLE FOR DIALYSIS PATIENTS. BILIRUBIN, [id number] 14:28:00 Test Item Value Reference Range Comments BILIRUBIN DIRECT (BEAKER) (test zgkw=309) 0.6 mg/dL 0.1-0.5 IRON, TIBC, % SAT. (WITHOUT FERRITIN)[id number] 14:26:00 Test Item Value Reference Range Comments IRON (BEAKER) (test ciqh=717) 37 ug/dL 40-160 TOTAL IRON BINDING CAPACITY (BEAKER) (test 219 ug/dL 250-450 qraj=309) IRON % SATURATION (2) (BEAKER) (test kgao=8909) 17 % 20-55 [id number] 14:25:00 Test Item Value Reference Range Comments ALPHA-1 ANTITRYPSIN (BEAKER) (test aqqx=678) 151.80 mg/dL 90.00-200.00 PROTHROMBIN [id number] 14:03:00 Test Item Value Reference Range Comments PROTIME (BEAKER) (test wwya=492) 17.2 seconds 11.7-14.7 INR (BEAKER) (test ujuc=849) 1.4 <=5.9 RECOMMENDED COUMADIN/WARFARIN INR THERAPY RANGESSTANDARD DOSE: 2.0 - 3.0 Includes: PROPHYLAXIS forvenous thrombosis, systemic embolization; TREATMENT for venous thrombosis and/or pulmonary embolus.HIGH RISK: Target INR is 2.5-3.5 for patients with mechanical heart valves.
[2018-02-09 18:41] LABS: Urine Blood NEGATIVE (NEG); Urine Glucose NEGATIVE (NEG); Urine Protein NEGATIVE (NEG); Urine Specific Gravity 1.015 (1.005-1.030)
[2018-02-09] MEDS ORDERED: PROMETHAZINE 25 MG/ML VIAL ONE (18:58)
[2018-02-09] MEDS ORDERED: NA CHLORIDE 0.9% 500 ML ONE ×3 (18:58→21:54)
[2018-02-09] MEDS ORDERED: NA CHLORIDE 0.9% 100 ML IV ONE (18:59)
[2018-02-09 19:04] LABS: Absolute Lymphocytes (CBC) 0.3 K/uL (0.7-4.9); Absolute Monocytes 0.6 K/uL (0.1-1.3); Basophils % 1.2 % (0-1.3); Hematocrit 19.7 % (36.0-45.0); Lymphocytes % 5.9 % (15.3-44.8); MCH 32.9 pg (27.0-35.0); MCV 96.5 fL (80-100); MPV 9.3 fL (7.6-11.3); Monocytes % 11.4 % (3.3-12.3); RBC Red Blood Cell Count 2.04 M/uL (3.86-4.86)
[2018-02-09 19:29] LABS: AST/SGOT 35 U/L (15-37); BUN Blood Urea Nitrogen 33 mg/dL (7-18); Bicarbonate 18 mmol/L (21-32); Glucose Level 108 mg/dL (74-106); Sodium Level 138 mmol/L (136-145)
[2018-02-09 19:30] LABS: ALT/SGPT 18 U/L (12-78); Albumin 3.7 g/dL (3.4-5.0); Alkaline Phosphatase 82 U/L (45-117); Bilirubin Direct 0.4 mg/dL (0-0.2); Lipase 202 U/L (73-393); Protein, Total 7.6 g/dL (6.4-8.2)
[2018-02-09 19:35] LABS: Potassium 2.5 mmol/L (3.5-5.1)
[2018-02-09] MEDS ORDERED: PANTOPRAZOLE 40 MG INJ ONE ×2 (19:54→19:55)
[2018-02-09] MEDS ORDERED: NA CHLORIDE 0.9% 250 ML ONE (19:54)
[2018-02-09] MEDS ORDERED: KCL 20 MEQ/100 mL IVPB 20 MEQ/100 ML BAG IV ONE (19:55)
[2018-02-09] MEDS ORDERED: LACTULOSE 20 GM/30 ML UCUP ONE (19:55)
--- NOTE | 2018-02-09 20:19 | EDPHYS ---
Physician Documentation [facility] Name: Amauri Miller Age: 47 yrs Sex: Female : 1970 Arrival Date: 02/09/2018 Time: 18:08 Bed 14 Private MD: None, None ED Physician Gilberto Duenas HPI: 02/09 18:48 This 47 yrs old Female presents to ER via Wheelchair with complaints of jr8 Dizziness, Confusion. 18:48 Patient with history of cirrhosis of the liver. Stated that she has felt nauseated for jr8 the past day and generally weak. stated that she does not take her lactulose like she needs to. Has felt that she is more confused. Worried that her ammonia is elevated . Severity of symptoms: At their worst the symptoms were mild in the emergency department the symptoms are unchanged. The patient has experienced similar episodes in the past, a few times. The patient has not recently seen a physician. 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 LMP N/A - Post-menopause aj1 Historical: - Allergies: 18:15 No Known Allergies; aj1 - Home Meds: 18:15 ferrous sulfate 134 mg (27 mg iron) Oral tab [Active]; folic acid 1 mg Oral tab 1 tab aj1 once daily [Active]; furosemide 40 mg Oral tab 1 tab once daily [Active]; lactulose 20 gram/30 mL Oral soln 30 mL 3 times per day [Active]; multivitamin with minerals Oral tab [Active]; nadolol 20 mg Oral tab 1 tab once daily [Active]; omeprazole 20 mg Oral cpDR 2 caps 2 times per day [Active]; potassium chloride 20 mEq Oral TbTQ 1 tab once daily [Active]; rifaximin 550 mg tab Oral 1 tab 2 times per day [Active]; sodium bicarbonate 650 mg Oral tab twice a day [Active]; tramadol 50 mg Oral tab 1 tab every 6 hours [Active]; vitamin b1 [Active]; Vitamin B-6 Oral [Active]; Zofran (as hydrochloride) 4 mg Oral tab 2 tabs for one tab as needed [Active]; - PMHx: 18:15 Anemia; Cirrhosis; esophageal varices; Hernia; second one, not repaired; possible htn; aj1 - Immunization history:: Flu vaccine is not up to date. - Social history:: Smoking status: Patient uses tobacco products, 5- 6 cigarettes per day. - Ebola Screening: : Patient denies travel to an Ebola-affected area in the 21 days before illness onset. ROS: 18:48 Eyes: Negative for injury, pain, redness, and discharge, ENT: Negative for injury, jr8 pain, and discharge, Neck: Negative for injury, pain, and swelling, Cardiovascular: Negative for chest pain, palpitations, and edema, Respiratory: Negative for shortness of breath, cough, wheezing, and pleuritic chest pain, Back: Negative for injury and pain, MS/Extremity: Negative for injury and deformity, Skin: Negative for injury, rash, and discoloration, Neuro: Negative for headache, weakness, numbness, tingling, and seizure. Positive for dizziness 18:48 Constitutional: Positive for fatigue, malaise. 18:48 Abdomen/GI: Positive for nausea, Negative for abdominal pain, diarrhea, constipation, abdominal cramps, abdominal distension, anorexia, dysphagia, hematemesis, black/tarry stool, rectal pain, rectal bleeding, bowel incontinence, flatulence. Exam: 18:48 Eyes: Pupils equal round and reactive to light, extra-ocular motions intact. Lids and jr8 lashes normal. Conjunctiva and sclera are non-icteric and not injected. Cornea within normal limits. Periorbital areas with no swelling, redness, or edema. ENT: Nares patent. No nasal discharge, no septal abnormalities noted. Tympanic membranes are normal and external auditory canals are clear. Oropharynx with no redness, swelling, or masses, exudates, or evidence of obstruction, uvula midline. Mucous membranes moist. Neck: Trachea midline, no thyromegaly or masses palpated, and no cervical lymphadenopathy. Supple, full range of motion without nuchal rigidity, or vertebral point tenderness. No Meningismus. Cardiovascular: Regular rate and rhythm with a normal S1 and S2. No gallops, murmurs, or rubs. Normal PMI, no JVD. No pulse deficits. Respiratory: Lungs have equal breath sounds bilaterally, clear to auscultation and percussion. No rales, rhonchi or wheezes noted. No increased work of breathing, no retractions or nasal flaring. Back: No spinal tenderness. No costovertebral tenderness. Full range of motion. Skin: Warm, dry with normal turgor. Normal color with no rashes, no lesions, and no evidence of cellulitis. MS/ Extremity: Pulses equal, no cyanosis. Neurovascular intact. Full, normal range of motion. Neuro: Awake and alert, GCS 15, oriented to person, place, time, and situation. Cranial nerves II-XII grossly intact. Motor strength 5/5 in all extremities. Sensory grossly intact. Cerebellar exam normal. Normal gait. 18:48 Abdomen/GI: Inspection: lower abdominal hernia present. Healing wound noted to abdomen , Bowel sounds: active, all quadrants, Palpation: abdomen is soft and non-tender, in all quadrants. Vital Signs: 18:15 BP 99 / 65; Pulse 112; Resp 18; Temp 99.0; Pulse Ox 100% on R/A; Weight 61.69 kg; aj1 Height 5 ft. 6 in. (167.64 cm); Pain 0/10; 20:08 BP 104 / 73; Pulse 101; Resp 18; Pulse Ox 100% on R/A; Pain 2/10; mg2 18:15 Body Mass Index 21.95 (61.69 kg, 167.64 cm) aj1 MDM: 18:28 Patient medically screened. jr8 19:54 Data reviewed: vital signs, nurses notes, lab test result(s). Data interpreted: Pulse jr8 oximetry: on room air is 100 %. Interpretation: normal. Counseling: I had a detailed discussion with the patient and/or guardian regarding: the historical points, exam findings, and any diagnostic results supporting the discharge/admit diagnosis, lab results, the need to transfer to another facility, [facility] does not immediately have the required specialist. ED course: Dr. Leigh is out of state. Dr. Avila is not available for the next 24-48 hours as well. Will have to transfer for no GI . 02/09 18:37 Order name: Urine Dipstick--Ancillary (enter results); Complete Time: 18:45 ag 02/09 18:37 Order name: Urine --Ancillary (enter results); Complete Time: 18:45 ag 02/09 18:45 Order name: Basic Metabolic Panel; Complete Time: 20:42 8 02/09 18:45 Order name: CBC with Diff; Complete Time: 19:14 [facility] 02/09 18:45 Order name: Creatinine for Radiology; Complete Time: 19:25 02/09 18:45 Order name: Hepatic Function; Complete Time: 20:42 02/09 18:45 Order name: Lipase; Complete Time: 20:42 02/09 18:45 Order name: AMMONIA; Complete Time: 19:25 02/09 20:19 Order name: LAB Add On 02/09 20:22 Order name: Alcohol Serum/Plasma; Complete Time: 20:42 EDMS 02/09 20:25 Order name: PT-INR 02/09 20:25 Order name: Protime (+INR); Complete Time: 21:17 EDMS 02/09 20:27 Order name: Type And Screen [facility] 02/09 20:45 Order name: Packed RBC Leukored -1 EDNV 02/09 18:45 Order name: IV Saline Lock; Complete Time: 18:52 8 02/09 18:45 Order name: Labs collected and sent; Complete Time: 18:52 [facility] 02/09 19:30 Order name: Hemacult; Complete Time: 19:31 rg2 Administered Medications: 19:06 Drug: NS 0.9% 500 ml Route: IV; Rate: bolus; Site: PICC; mg2 20:00 Follow up: Response: No adverse reaction; IV Status: Completed infusion mg2 19:07 Drug: Phenergan 12.5 mg Route: IVP; Site: PICC; mg2 20:00 Follow up: Response: No adverse reaction; Nausea is decreased mg2 20:06 Drug: ProTONIX 8 mg/hr Route: IV; Rate: 25 ml/hr; Site: PICC; mg2 23:10 Follow up: Response: No adverse reaction; IV Status: Infusion continued upon transfer mg2 20:06 Drug: Lactulose 30 grams Volume: 45 ml; Route: PO; mg2 21:00 Follow up: Response: No adverse reaction mg2 20:07 Drug: Potassium Chloride 20 mEq Route: IV; Rate: calculated rate; Site: PICC; mg2 22:00 Follow up: Response: No adverse reaction; IV Status: Completed infusion mg2 20:07 Drug: ProTONIX 40 mg Route: IVP; Site: PICC; mg2 21:00 Follow up: Response: No adverse reaction mg2 20:47 Drug: Rocephin 1 grams Route: IV; Rate: calculated rate; Site: right forearm; mg2 21:30 Follow up: Response: No adverse reaction; IV Status: Completed infusion mg2 22:30 Drug: Octreotide 50 mcg Route: IV; Rate: bolus; Site: left forearm; mg2 22:35 Follow up: Response: No adverse reaction; IV Status: Completed infusion mg2 23:10 Follow up: Response: No adverse reaction; IV Status: Infusion continued upon transfer mg2 22:30 Drug: Octreotide Infusion (50 mcg/hr) - (Octreotide 500 mcg, NS 0.9% 500 ml) Route: IV; mg2 Rate: 50 ml/hr; Site: left forearm; Point of Care Testing: Guaiac: 19:31 Stool Guaiac: Positive; Stool Hemoccult Control: Pass; rg2 Disposition: 02/10 10:34 Co-signature as Attending Physician, Gilberto Duenas MD. Disposition: 02/09/18 20:18 Transfer ordered to [facility]. Diagnosis are Anemia, Gastrointestinal hemorrhage, unspecified, Hypokalemia, Hepatic Encephalopathy. - Reason for transfer: Higher level of care. - Accepting physician is [facility]. - Condition is Stable. - Problem is new. - Symptoms are unchanged. Signatures: Dispatcher [employer] EDMS Case Soler rg2 Claudia Conn RN RN aj1 Guy Arredondo PA PA jr8 Gilberto Duenas MD MD Mykel Jack RN RN mg2 Corrections: (The following items were deleted from the chart) 02/09 23:22 20:18 02/09/2018 20:18 Transfer ordered to [facility]. Diagnosis is mg2 Anemia; Gastrointestinal hemorrhage, unspecified; Hypokalemia; Hepatic Encephalopathy. Reason for transfer: Higher level of care. Accepting physician is [facility]. Condition is Stable. Problem is new. Symptoms are unchanged. jr8
--- NOTE | 2018-02-09 20:19 | ER ---
Nurse's Notes [facility] Name: Amauri Miller Age: 47 yrs Sex: Female : 1970 Arrival Date: 02/09/2018 Time: 18:08 Bed 14 Private MD: None, None Diagnosis: Anemia;Gastrointestinal hemorrhage, unspecified;Hypokalemia;Hepatic Encephalopathy Presentation: 02/09 18:09 Presenting complaint: Patient states: She had a nose bleed yesterday and now today aj1 she's feeling dizzy, with no energy. Also reports nausea, vomiting. Fiance states that she has been acting "spacey" like she does when her ammonia levels are high. Patient denies pain. Transition of care: patient was not received from another setting of care. Onset of symptoms was February 08, 2018. Risk Assessment: Do you want to hurt yourself or someone else? Patient reports no desire to harm self or others. Initial Sepsis Screen: Does the patient meet any 2 criteria? HR > 90 bpm. No. Patient's initial sepsis screen is negative. Does the patient have a suspected source of infection? No. Patient's initial sepsis screen is negative. Care prior to arrival: None. 18:09 Method Of Arrival: Wheelchair aj1 18:09 Acuity: CASI 3 aj1 Triage Assessment: 18:15 General: Appears in no apparent distress. uncomfortable, Behavior is calm, cooperative, aj1 appropriate for age. Pain: Denies pain. Neuro: Level of Consciousness is awake, alert, obeys commands, Oriented to person, place, time, situation, Speech is normal. Cardiovascular: Patient's skin is warm and dry. Respiratory: Airway is patent Respiratory effort is even, unlabored, Respiratory pattern is regular, symmetrical. 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 LMP N/A - Post-menopause aj1 Historical: - Allergies: 18:15 No Known Allergies; aj1 - Home Meds: 18:15 ferrous sulfate 134 mg (27 mg iron) Oral tab [Active]; folic acid 1 mg Oral tab 1 tab aj1 once daily [Active]; furosemide 40 mg Oral tab 1 tab once daily [Active]; lactulose 20 gram/30 mL Oral soln 30 mL 3 times per day [Active]; multivitamin with minerals Oral tab [Active]; nadolol 20 mg Oral tab 1 tab once daily [Active]; omeprazole 20 mg Oral cpDR 2 caps 2 times per day [Active]; potassium chloride 20 mEq Oral TbTQ 1 tab once daily [Active]; rifaximin 550 mg tab Oral 1 tab 2 times per day [Active]; sodium bicarbonate 650 mg Oral tab twice a day [Active]; tramadol 50 mg Oral tab 1 tab every 6 hours [Active]; vitamin b1 [Active]; Vitamin B-6 Oral [Active]; Zofran (as hydrochloride) 4 mg Oral tab 2 tabs for one tab as needed [Active]; - PMHx: 18:15 Anemia; Cirrhosis; esophageal varices; Hernia; second one, not repaired; possible htn; aj1 - Immunization history:: Flu vaccine is not up to date. - Social history:: Smoking status: Patient uses tobacco products, 5- 6 cigarettes per day. - Ebola Screening: : Patient denies travel to an Ebola-affected area in the 21 days before illness onset. Screenin:37 Abuse screen: Denies threats or abuse. Denies injuries from another. Nutritional mg2 screening: No deficits noted. Tuberculosis screening: No symptoms or risk factors identified. 20:00 Fall Risk IV access (20 points). mg2 Assessment: 18:37 General: Appears comfortable, Behavior is calm, cooperative. Pain: Denies pain. Neuro: mg2 Level of Consciousness is awake, alert, obeys commands, confused, Oriented to person, place, situation. Cardiovascular: Capillary refill < 3 seconds Patient's skin is warm and dry. Respiratory: Airway is patent Respiratory effort is even, unlabored, Respiratory pattern is regular, symmetrical. GI: Abdomen is distended, with wound in the hernia area. : EENT: Reports had nose bleeding yesterday \\T\\ 1600 that lasted for 40 min. . Derm: Skin has lesions on in the abdomen. Musculoskeletal: No signs and/or symptoms reported regarding the musculoskeletal system. 18:40 Reassessment: patient refused hospital gown. mg2 19:40 Reassessment: Patient appears in no apparent distress at this time. Patient and/or mg2 family updated on plan of care and expected duration. Pain level reassessed. Patient is alert, oriented x 3, equal unlabored respirations, skin warm/dry/pink. 20:50 Reassessment: Patient appears in no apparent distress at this time. Patient and/or mg2 family updated on plan of care and expected duration. Pain level reassessed. Patient is alert, oriented x 3, equal unlabored respirations, skin warm/dry/pink. 22:00 Reassessment: Patient appears in no apparent distress at this time. Patient and/or mg2 family updated on plan of care and expected duration. Pain level reassessed. Patient is alert, oriented x 3, equal unlabored respirations, skin warm/dry/pink. 22:05 Reassessment: blood transfusion started with first bag of PRBC. informed consent signed mg2 by the . Vital Signs: 18:15 BP 99 / 65; Pulse 112; Resp 18; Temp 99.0; Pulse Ox 100% on R/A; Weight 61.69 kg; aj1 Height 5 ft. 6 in. (167.64 cm); Pain 0/10; 20:08 BP 104 / 73; Pulse 101; Resp 18; Pulse Ox 100% on R/A; Pain 2/10; mg2 18:15 Body Mass Index 21.95 (61.69 kg, 167.64 cm) aj1 ED Course: 18:08 Patient arrived in ED. mr 18:09 None, None is Private Physician. mr 18:14 Triage completed. aj1 18:15 Arm band placed on. aj1 18:20 Mykel Jack, KIMBERLY is Primary Nurse. mg2 18:28 Guy Arredondo PA is PHCP. jr8 18:28 Gilberto Duenas MD is Attending Physician. jr8 18:40 Patient has correct armband on for positive identification. Bed in low position. Call mg2 light in reach. Side rails up X2. Door closed. Warm blanket given. 18:40 Urine --Ancillary (enter results) Sent. em 18:40 Urine Dipstick--Ancillary (enter results) Sent. em 19:35 Notified Nurse Practitioner and/or Physician Viscose Department Worker of a critical lab result(s), fc potassium of 2.5. 23:10 No provider procedures requiring assistance completed. Patient transferred, IV remains mg2 in place. Administered Medications: 19:06 Drug: NS 0.9% 500 ml Route: IV; Rate: bolus; Site: PICC; mg2 20:00 Follow up: Response: No adverse reaction; IV Status: Completed infusion mg2 19:07 Drug: Phenergan 12.5 mg Route: IVP; Site: PICC; mg2 20:00 Follow up: Response: No adverse reaction; Nausea is decreased mg2 20:06 Drug: ProTONIX 8 mg/hr Route: IV; Rate: 25 ml/hr; Site: PICC; mg2 23:10 Follow up: Response: No adverse reaction; IV Status: Infusion continued upon transfer mg2 20:06 Drug: Lactulose 30 grams Volume: 45 ml; Route: PO; mg2 21:00 Follow up: Response: No adverse reaction mg2 20:07 Drug: Potassium Chloride 20 mEq Route: IV; Rate: calculated rate; Site: PICC; mg2 22:00 Follow up: Response: No adverse reaction; IV Status: Completed infusion mg2 20:07 Drug: ProTONIX 40 mg Route: IVP; Site: PICC; mg2 21:00 Follow up: Response: No adverse reaction mg2 20:47 Drug: Rocephin 1 grams Route: IV; Rate: calculated rate; Site: right forearm; mg2 21:30 Follow up: Response: No adverse reaction; IV Status: Completed infusion mg2 22:30 Drug: Octreotide 50 mcg Route: IV; Rate: bolus; Site: left forearm; mg2 22:35 Follow up: Response: No adverse reaction; IV Status: Completed infusion mg2 23:10 Follow up: Response: No adverse reaction; IV Status: Infusion continued upon transfer mg2 22:30 Drug: Octreotide Infusion (50 mcg/hr) - (Octreotide 500 mcg, NS 0.9% 500 ml) Route: IV; mg2 Rate: 50 ml/hr; Site: left forearm; Point of Care Testing: Guaiac: 19:31 Stool Guaiac: Positive; Stool Hemoccult Control: Pass; rg2 Outcome: 20:18 ER care complete, transfer ordered by MD. ulrich 23:10 Transferred by ground EMS to [facility]. mg2 23:10 Condition: stable 23:10 Instructed on the need for transfer, Demonstrated understanding of instructions. 23:22 Patient left the ED. mg2 Signatures: Case Soler rg2 Claudia Conn RN RN aj1 Yasmeen Pacheco mr La Seals RN RN Brandon Wiley, WELDING MACHINE OPERATOR WELDING MACHINE OPERATOR Guy Jaramillo PA PA jr8 Mykel Jack RN RN mg2
[2018-02-09 20:37] LABS: Alcohol Serum/Plasma < 3 mg/dL (0-3)
[2018-02-09] MEDS ORDERED: CEFTRIAXONE/SWI 1gm 1 GM/10 ML SYR ONE (20:37)
[2018-02-09 20:43] LABS: Protime INR 1.19
[2018-02-09] MEDS ORDERED: OCTREOTIDE ACETATE 100 MCG/ML ONE (20:56)
[2018-02-09] MEDS ORDERED: OCTREOTIDE ACETATE 500 MCG/ML ONE (21:10)
[2018-02-09] MEDS ORDERED: HYDROCORTISONE SUC 100 MG INJ ONE (21:50)
[2018-02-09] MEDS ORDERED: ACETAMINOPHEN 325 MG TABLET ONE (21:50)
[2018-02-09] MEDS ORDERED: DIPHENHYDRAMINE 12.5MG/5ML LIQ ONE (21:50)
[2018-02-09] MEDS ORDERED: DIPHENHYDRAMINE 50 MG/ML VIAL ONE (21:51)
[2018-02-09 23:26] VITALS: TEMP 99; O2SAT 100
[2018-02-09 23:27] VITALS: BP 104/73
== END 2018-02-09 23:22 | disposition short-term general hospital (02) ==
LOC: ER 18:06
PROC: 30233N1 Transfusion of Nonautologous Red Blood Cells into Peripheral Vein, Percutaneous Approach (ICD-10-PCS; principal; 2018-02-09)
DX: D64.9 Anemia, unspecified (principal); K72.90 Hepatic failure, unspecified without coma; K74.60 Unspecified cirrhosis of liver; K92.2 Gastrointestinal hemorrhage, unspecified; E87.6 Hypokalemia; F17.210 Nicotine dependence, cigarettes, uncomplicated
CPT/HCPCS: 36415; 80048; 80076; 80320; 81003; 81025; 82140; 83690; 85025; 85610; 86850; 86900; 86901; 99285; C9113; J0696; J1720; J2354; J2550; P9016

== ENCOUNTER 2018-03-04 09:32 | Emergency (ER) | payer MEDICAID ==
--- OUTSIDE RECORDS SUMMARY | 2018-03-04 09:35 | XMS REPORT | Clinical Summary ---
:1970 Author Organization [facility] Address [address] [place] [address] Phone Care Team Providers Name Role Phone Unavailable Primary Care Provider Unavailable Allergies No Known Allergies Current Medications Prescription Sig. Disp. Refills Start Date End Date Status ondansetron (ZOFRAN) TK 1 T PO Q 8 0 11/05/2017 Active 4 MG tablet H PRN sodium bicarbonate Take 650 mg Active 325 MG tablet by mouth 2 (two) times daily . potassium chloride Take 20 mEq Active (KLOR-CON) 20 mEq by mouth packet daily. nadolol (CORGARD) 20 Take 20 mg by Active MG tablet mouth daily. ferrous sulfate 134 Take 134 mg Active mg (27 mg iron) Tab by mouth daily. folic acid (FOLVITE) Take 1 mg by Active 1 MG tablet mouth daily. furosemide (LASIX) Take 40 mg by Active 40 MG tablet mouth daily. lactulose (CEPHULAC) Take 20 g by Active 20 gram packet mouth 3 (three) times daily. multivitamin per Take 1 tablet Active tablet by mouth daily. omeprazole Take 40 mg by Active (PRILOSEC) 40 MG mouth 2 (two) capsule times daily. ibuprofen Take 200 mg 11/27/2017 Discontinued (ADVIL,MOTRIN) 200 by mouth MG tablet every 6 (six) hours as needed for Pain. UNKNOWN Water Pill 11/27/2017 Discontinued omeprazole TAKE ONE 2 09/09/2017 02/10/2018 Discontinued (PRILOSEC) 40 MG CAPSULE BY capsule MOUTH EVERY DAY 30 MINUTES BEFORE FIRST MEALS midodrine Take 5 mg by 0 10/22/2017 02/10/2018 Discontinued (PROAMATINE) 5 MG mouth 2 (two) tablet times daily. mupirocin APPLY 2 TIMES 0 10/22/2017 02/10/2018 Discontinued (BACTROBAN) 2 % A DAY ointment pantoprazole Take 40 mg by 0 10/22/2017 02/10/2018 Discontinued (PROTONIX) 40 MG mouth daily. tablet spironolactone Take 25 mg by 0 10/22/2017 02/10/2018 Discontinued (ALDACTONE) 25 MG mouth daily. tablet traMADol (ULTRAM) 50 0 10/30/2017 02/10/2018 Discontinued mg tablet aspirin 81 MG Take 81 mg by 02/10/2018 Discontinued chewable tablet mouth daily. traMADol (ULTRAM) 50 Take 1 tablet 30 tablet 0 02/15/2018 02/25/2018 mg tablet (50 mg total) by mouth every 6 (six) hours as needed for Pain for up to 10 days. Max Daily Amount: 200 mg Active Problems Problem Noted Date s/p incisional hernia repair 02/11/2018 suspected Spontaneous bacterial peritonitis (HCC) 02/11/2018 Thrombocytopenia due to sequestration (HCC) 02/11/2018 Acute pain 02/11/2018 Melena 02/10/2018 Acute hepatic encephalopathy 02/10/2018 Acute blood loss anemia 02/10/2018 Acute upper GI bleed 02/10/2018 Acute renal failure (ARF) (HCC) 02/10/2018 Ascites 11/27/2017 Last Assessment & Plan: Last [...] test for immunity to both viruses - [facility] recommendations will follow. Portal hypertension (HCC) 11/27/2017 Last Assessment & Plan: Portal hypertension is evidenced by gastric and esophageal varices seen on EGD and CT scan 10/21/17 and splenomegaly. Encounters Date Type Specialty Care Team Description 02/11/2018 Procedure Pass 02/11/2018 Surgery Tamera Mayorga HERNIORRHAPHYCK MD LICCT 02/10/2018 Hospital Encounter General Internal Naresh Alvarado Alcoholic - Medicine MD Kavya cirrhosis of liver 02/15/2018 Lino, with ascites Lionel Brady, (HCC);Acute blood MD loss anemia;Acute hepatic encephalopathy;Acu te renal failure, unspecified acute renal failure type (HCC);Acute upper GI bleed;Other ascites;Umbilical hernia with obstruction;Ascite s due to alcoholic cirrhosis (HCC);Portal hypertension (HCC);Umbilical hernia with gangrene;Incarcera jean claude umbilical hernia;Acute renal failure with tubular necrosis (HCC);Hypovolemia* * 02/10/2018 Anesthesia Event Roxy Anderson MD 02/10/2018 Anesthesia Event Gastroenterology Rafael Almaguer MD 02/10/2018 Procedure Pass Gastroenterology 02/10/2018 Surgery Gastroenterology Raul, UPPER ENDOSCOPY Bonnie Buchanan MD 02/10/2018 Orders Only General Internal Medicine 02/09/2018 Telephone Critical Care Medicine Naresh Alvarado GI Bleeding MD Kavya 12/06/2017 Documentation Transplant Hepatology Mona Newman RN 12/06/2017 Abstract Transplant Hepatology Mona Newman RN 11/28/2017 Abstract Transplant Hepatology Tim Riley MD 11/27/2017 Office Visit Hepatology Ugo Doss MD cirrhosis of liver with ascites (HCC) (Primary Dx);Other ascites;Screening for malignant neoplasm;Immunity status testing;Portal hypertension (HCC) after 03/03/2017 Social History Tobacco Use Types Packs/Day Years Used Date Current Every Day Smoker Cigarettes 1 12 Alcohol Use Drinks/Week oz/Week Comments Yes 14 Glasses of wine 8.4 pt states she usually drinks a 6 pack daily Sex Assigned at Date Recorded Not on file Last Filed Vital Signs Vital Sign Reading Time Taken Blood Pressure 95/64 02/15/2018 3:33 PM CDT Pulse 99 02/15/2018 3:33 PM CDT Temperature 37.2 C (99 F) 02/15/2018 3:33 PM CDT Respiratory Rate 18 02/15/2018 3:33 PM CDT Oxygen Saturation 99% 02/15/2018 3:33 PM CDT Inhaled Oxygen Concentration - - Weight 54.4 kg (120 lb) 02/15/2018 4:00 AM CDT Height 167.6 cm (5' 6") 11/27/2017 11:48 AM CDT Body Mass Index 19.37 02/15/2018 4:00 AM CDT Plan of Treatment Date Type Specialty Care Team Description 03/06/2018 Office Visit Hepatology Ugo Doss MD [address] [id number] Resource, [facility] Health Maintenance Due Date Last Done Comments INFLUENZA VACCINE 05/05/2018 Procedures Procedure Name Priority Date/Time Associated Diagnosis Comments PLACEMENT,WOUND VAC 02/11/2018 11:30 AM Incarcerated umbilical CDT hernia Special Needs (INCISIONAL WOUND VAC, PATIENT HAS CIRRHOSIS) HERNIORRHAPHY,UMBILICAL 02/11/2018 11:30 AM CDT Incarcerated umbilical hernia Special Needs (INCISIONAL WOUND VAC, PATIENT HAS CIRRHOSIS) UPPER ENDOSCOPY 02/10/2018 12:00 PM CDT Gastrointestinal hemorrhage, unspecified gastrointestinal hemorrhage type after 03/03/2017 Results RHYTHM STRIP - SCAN (02/18/2018 10:30 AM)TRANSFUSION SERVICE REPORT - SCAN ( 5:50 PM)Only the most recent of5 resultswithin the time period is included.POC-Glucose meter (02/15/2018 11:14 AM)Only the most recent of17 resultswithin the time period is included. Component Value Ref Range POC-Glucose Meter 119 (H)Comment: TESTED AT [address] 70 - 110 mg/[place] [address] Specimen Performing Laboratory Blood [facility] [address] [address] CBC with platelet count + automated diff (02/15/2018 5:05 AM)Only the most recent of9 resultswithin the time period is included. Component Value Ref Range WBC 5.1 3.5 - 10.5 K/L RBC 2.79 (L) 3.93 - 5.22 M/L Hemoglobin 8.8 (L) 11.2 - 15.7 GM/DL Hematocrit 27.2 (L) 34.1 - 44.9 % MCV 97.5 (H) 79.4 - 94.8 fL MCH 31.5 25.6 - 32.2 pg MCHC 32.4 32.2 - 35.5 GM/DL RDW 18.8 (H) 11.7 - 14.4 % Platelets 86 (L) 150 - 450 K/CU MM MPV 12.6 (H) 9.4 - 12.3 fL nRBC 0 0 - 0 /100 WBC % Neutros 73 % % Lymphs 7 % % Monos 12 % % Eos 6 % % Baso 1 % # Neutros 3.63 1.56 - 6.13 K/L # Lymphs 0.36 (L) 1.18 - 3.74 K/L # Monos 0.61 (H) 0.24 - 0.36 K/L # Eos 0.31 0.04 - 0.36 K/L # Baso 0.06 0.01 - 0.08 K/L Immature Granulocytes-Relative 0 0 - 1 % Specimen Performing Laboratory Blood [address] [address] CBC (Hemogram only) (02/15/2018 5:05 AM)Only the most recent of3 resultswithin the time period is included. Component Value Ref Range WBC 5.1 3.5 - 10.5 K/L RBC 2.79 (L) 3.93 - 5.22 M/L Hemoglobin 8.8 (L) 11.2 - 15.7 GM/DL Hematocrit 27.2 (L) 34.1 - 44.9 % MCV 97.5 (H) 79.4 - 94.8 fL MCH 31.5 25.6 - 32.2 pg MCHC 32.4 32.2 - 35.5 GM/DL RDW 18.8 (H) 11.7 - 14.4 % Platelets 86 (L) 150 - 450 K/CU MM MPV 12.6 (H) 9.4 - 12.3 fL nRBC 0 0 - 0 /100 WBC Specimen Performing Laboratory Blood [address] [address] CBC with platelet count + automated diff (02/15/2018 5:05 AM)Only the most recent of9 resultswithin the time period is included. Specimen Performing Laboratory Blood [facility] The following orders were created for panel order CBC with platelet count + automated diff. Procedure Abnormality Status --------- ------ CBC with platelet count ...[[id number]]AbnormalFinal result Please view results for these tests on the individual orders. Phosphorus (02/15/2018 5:05 AM)Only the most recent of6 resultswithin the time period is included. Component Value Ref Range Phosphorus 3.5 2.3 - 4.7 mg/dL Specimen Performing Laboratory Blood [address] [address] Magnesium (02/15/2018 5:05 AM)Only the most recent of6 resultswithin the time period is included. Component Value Ref Range Magnesium 1.7 1.6 - 2.6 mg/dL Specimen Performing Laboratory Blood [address] [address] Hepatic function panel (02/15/2018 5:05 AM)Only the most recent of5 resultswithin the time period is included. Component Value Ref Range Protein, Total 6.3 6.0 - 8.3 gm/dL Albumin 3.9 3.5 - 5.0 g/dL Total Bilirubin 1.7 (H) 0.2 - 1.2 mg/dL Bilirubin, Direct 1.0 (H) 0.1 - 0.5 mg/dL Alkaline Phosphatase 126 40 - 150 U/L AST 118 (H) 5 - 34 U/L ALT 56 (H) 6 - 55 U/L Specimen Performing Laboratory Blood [address] [address] Basic Metabolic Panel (02/15/2018 5:05 AM)Only the most recent of4 resultswithin the time period is included. Component Value Ref Range Sodium 136 136 - 145 meq/L Potassium 3.2 (L) 3.5 - 5.1 meq/L Chloride 112 (H) 98 - 107 meq/L CO2 14 (L) 22 - 29 meq/L BUN 14 7 - 21 mg/dL Creatinine 0.71 0.57 - 1.25 mg/dL Glucose 92 70 - 105 mg/dL Calcium 8.9 8.4 - 10.2 mg/dL EGFR 88Comment: ESTIMATED GFR IS NOT ACCURATE mL/min/1.73 sq m CREATININE CLEARANCE IN PREDICTING GLOMERULAR FILTRATION RATE. ESTIMATED GFR IS NOT APPLICABLE FOR DIALYSIS PATIENTS. Specimen Performing Laboratory Blood [facility] [address] [address] Prepare Leuko-Red RBC (02/14/2018 11:54 PM) Component Value Ref Range CROSSMATCH COMPATIBLE Unit ABO O Pos UNIT NUMBER [id number] Status TRANSFUSED Blood Bank Product RED BLOOD CELLS PRODUCT CODE [id number] Specimen Performing Laboratory Other [employer] [place] US paracentesis (02/14/2018 5:06 PM) Specimen Performing Laboratory [facility] RIS Narrative FINAL REPORT Paracentesis: Performing MD: Bela Rios M.D. Preoperative Diagnosis:Ascites Postoperative Diagnosis: Ascites Side Seam Envelope Machine Operator: none Specimen: As requested Estimated Blood Loss: less than 10 cc Complications: none Anesthesia: local 2% subcutaneously at the insertion site Grafts or Implants: none Modality: sonography Sedation: none Approach: Right lower quadrant, anterior abdominal wall Technique:After informed written consent was obtained, the patient was prepped and draped in the usual sterile manner.Access was obtained using sonographic guidance.Images documented fluid.The images were saved to PACS.The rightlower quadrant anterior abdominal wall was instrumented.A small bore catheterwas advanced into the peritoneal space.The patient tolerated the procedure well. Impression: Successful, uncomplicated ultrasound guided paracentesis of the right lower quadrant peritoneal space.6400 cc of serosanguineous fluid was removed. Signed: Bela Rios MD Report Verified Date/Time:02/14/2018 17:34:56 Reading Location: [address] Ultrasound Reading Room Procedure Note Interface, External Ris In - 02/14/2018 5:37 PM CDT FINAL REPORT Paracentesis: Performing MD: Bela Rios M.D. Preoperative Diagnosis:Ascites Postoperative Diagnosis: Ascites Side Seam Envelope Machine Operator: none Specimen: As requested Estimated Blood Loss: less than 10 cc Complications: none Anesthesia: local 2% subcutaneously at the insertion site Grafts or Implants: none Modality: sonography Sedation: none Approach: Right lower quadrant, anterior abdominal wall Technique: After informed written consent was obtained, the patient was prepped and draped in the usual sterile manner. Access was obtained using sonographic guidance. Images documented fluid. The images were saved to PACS. The right lower quadrant anterior abdominal wall was instrumented. A small bore catheter was advanced into the peritoneal space. The patient tolerated the procedure well. Impression: Successful, uncomplicated ultrasound guided paracentesis of the right lower quadrant peritoneal space. 6400 cc of serosanguineous fluid was removed. Signed: Bela Rios MD Report Verified Date/Time: 02/14/2018 17:34:56 Reading Location: [place] [id number] Ultrasound Reading Room Body fluid culture + gram stain (02/14/2018 5:00 PM) Component Value Ref Range Result No growth Gram Stain Result <1+ WBCs Gram Stain Result No organisms seen Specimen Performing Laboratory Body Fluid - Ascites [address] [address] Body fluid cell count with differential (02/14/2018 5:00 PM) Component Value Ref Range Appearance Bloody (A) Clear Color Red (A) Colorless, Straw RBCs [address] (H) <=1 /cu mm Adjusted WBC Count 206 (H) <=5 /cu mm Lining Cells 4 (H) <=1 /cu mm % Segs 50 % % Lymphs 5 % % Monos 45 % % Eos 0 % % Baso 0 % Container Body Fluid EDTA Tube Specimen Performing Laboratory Body Fluid - Ascites [address] [address] aPTT (02/14/2018 3:12 PM)Only the most recent of2 resultswithin the time period is included. Component Value Ref Range PTT 28.9 22.5 - 36.0 seconds Specimen Performing Laboratory Blood - Central Venous Line [address] [address] Prothrombin time/INR (02/14/2018 3:12 PM)Only the most recent of3 resultswithin the time period is included. Component Value Ref Range Protime 18.3 (H) 11.7 - 14.7 seconds INR 1.5 <=5.9 Specimen Performing Laboratory Blood - Central Venous Line [address] [address] Narrative RECOMMENDED COUMADIN/WARFARIN INR THERAPY RANGES STANDARD DOSE: 2.0 - 3.0 Includes: PROPHYLAXIS for venous thrombosis, systemic embolization; TREATMENT for venous thrombosis and/or pulmonary embolus. HIGH RISK: Target INR is 2.5-3.5 for patients with mechanical heart valves. Transfuse Leuko-Red RBC (02/13/2018 3:02 PM)Only the most recent of2 resultswithin the time period is included.Comprehensive metabolic panel (2017 5:16 AM)Only the most recent of3 resultswithin the time period is included. Component Value Ref Range Protein, Total 6.6 6.0 - 8.3 gm/dL Albumin 4.5 3.5 - 5.0 g/dL Alkaline Phosphatase 56 40 - 150 U/L Total Bilirubin 1.0 0.2 - 1.2 mg/dL Sodium 138 136 - 145 meq/L Potassium 3.3 (L) 3.5 - 5.1 meq/L Chloride 114 (H) 98 - 107 meq/L CO2 15 (L) 22 - 29 meq/L BUN 15 7 - 21 mg/dL Creatinine 0.83 0.57 - 1.25 mg/dL Glucose 108 (H) 70 - 105 mg/dL Calcium 9.0 8.4 - 10.2 mg/dL AST 51 (H) 5 - 34 U/L ALT 17 6 - 55 U/L EGFR 73Comment: ESTIMATED GFR IS NOT ACCURATE mL/min/1.73 sq m CREATININE CLEARANCE IN PREDICTING GLOMERULAR FILTRATION RATE. ESTIMATED GFR IS NOT APPLICABLE FOR DIALYSIS PATIENTS. Specimen Performing Laboratory Blood - Central Venous Line [address] [address] Prepare RBC (02/12/2018 11:54 PM) Component Value Ref Range CROSSMATCH COMPATIBLE Unit ABO O Pos UNIT NUMBER [id number] Status RETURNED FROM ISSUE Blood Bank Product RED BLOOD CELLS PRODUCT CODE [id number] CROSSMATCH COMPATIBLE Unit ABO O Pos UNIT NUMBER [id number] Status TRANSFUSED Blood Bank Product RED BLOOD CELLS PRODUCT CODE [id number] Specimen Performing Laboratory [employer] [place] HIV-1 Antigen with HIV-1/2 Antibody (02/12/2018 5:29 AM) Component Value Ref Range HIV-1 Antigen with HIV 1&2 Antibody Nonreactive Nonreactive Specimen Performing Laboratory Blood [address] [address] PT/aPTT (02/11/2018 3:47 PM)Only the most recent of2 resultswithin the time period is included. Component Value Ref Range Protime 18.7 (H) 11.7 - 14.7 seconds INR 1.6 <=5.9 PTT 36.5 (H) 22.5 - 36.0 seconds Specimen Performing Laboratory Blood [address] [address] Narrative RECOMMENDED COUMADIN/WARFARIN INR THERAPY RANGES STANDARD DOSE: 2.0 - 3.0 Includes: PROPHYLAXIS for venous thrombosis, systemic embolization; TREATMENT for venous thrombosis and/or pulmonary embolus. HIGH RISK: Target INR is 2.5-3.5 for patients with mechanical heart valves. Tissue Exam (02/11/2018 1:38 PM) Component Value Ref Range Case Report Surgical Pathology Report Case: [id number] Authorizing Provider:Tamera Mayorga MD Collected: 02/11/2018 1338 Ordering Location: [place] [address] ICUReceived: 02/11/2018 1613 Pathologist: Herminia Hope MD Specimen:Hernia Sac, Umbilical DIAGNOSIS SKIN AND HERNIA SAC, EXCISION: - SKIN WITH ULCER, NECROSIS, HERNIA WITH FIBROSIS, ADHESION AND CHRONIC INFLAMMATION Signing Pathologist Direct Phone Line: [phone] CPT Code(s) 78565 CLINICAL HISTORY Incarcerated umbilical hernia SPECIMEN SOURCE Hernia sac umbilical GROSS DESCRIPTION The specimen is received in a formalin-filled container labeled with the patient's information and labeled "umbilical hernial sac" and consists of hemorrhagic membranous tissue measuring 6 x 3 x 0.2 cm with overlying brown skin measuring 5.5 x 3 x 0.3 cm, submitted in A1 and A2. There are no areas of suspicion. CG/ew MICROSCOPIC DESCRIPTION Performed Specimen Performing Laboratory Tissue - Hernia Sac, Umbilical [address] [address] Anaerobic culture (02/11/2018 1:34 PM) Component Value Ref Range Result No anaerobes isolated Specimen Performing Laboratory Wound - Abdomen [address] [address] Surgically obtained culture + gram stain (02/11/2018 1:34 PM) Component Value Ref Range Result No growth Gram Stain Result <1+ WBCs Gram Stain Result No organisms seen Specimen Performing Laboratory Wound - Abdomen [facility] [address] SPIN/CONCENTRATION CHARGE (02/11/2018 1:34 PM) Component Value Ref Range Concentration charged Done Specimen Performing Laboratory [place] [address] Potassium-Stat Lab (02/11/2018 1:21 PM) Component Value Ref Range Potassium 3.9 3.6 - 5.5 meq/L Specimen Performing Laboratory Other [place] [id number] Narrative THIS IS A VENOUS SAMPLE THIS IS A VENOUS SAMPLE THIS IS A VENOUS SAMPLE Sodium Na-Stat Lab (02/11/2018 1:21 PM) Component Value Ref Range Sodium 135 135 - 148 meq/L Specimen Performing Laboratory [address] [address] Narrative THIS IS A VENOUS SAMPLE THIS IS A VENOUS SAMPLE THIS IS A VENOUS SAMPLE Glucose-Stat Lab (02/11/2018 1:21 PM) Component Value Ref Range Glucose 122 (H) 70 - 110 mg/dL Specimen Performing Laboratory Other [address] [address] Narrative THIS IS A VENOUS SAMPLE THIS IS A VENOUS SAMPLE THIS IS A VENOUS SAMPLE HGB/HCT (H&H)-Stat Lab (02/11/2018 1:21 PM) Component Value Ref Range Hemoglobin 8.7 (L) 12.0 - 15.0 g/dL Hematocrit 26.0 (L) 36.0 - 45.0 % Specimen Performing Laboratory Other [address] [address] Narrative THIS IS A VENOUS SAMPLE Calcium, Ionized (02/11/2018 1:21 PM) Component Value Ref Range Calcium, Ion 1.07 (L) 1.12 - 1.27 mmol/L pH, Blood 7.28 Specimen Performing Laboratory Blood [place] [id number] US abdomen complete (02/11/2018 6:57 AM) Specimen Performing Laboratory [employer] RIS Narrative FINAL REPORT Abdominal Ultrasound Clinical Diagnosis: Ascites acute renal failure and hydronephrosis Comparison: No comparison ultrasounds Technique: Multiple transaxial and longitudinal images were obtained through the abdomen with real time ultrasonography.Five MHz transducer was utilized.83 images were submitted for interpretation. Report: Liver: The liver measures 18.8 cm in the right midaxillary line. There are no focal masses.The echogenicity is homogenous. Spleen: The spleen measures 15.1 cm. in the left mid axillary line. Gallbladder: The transverse diameter is 2.2 cm.The wall measures five mm.There are no shadowing stones visualized. Biliary tree: There is no evidence of intra or extra hepatic biliary ductal dilatation.The common bile duct measures six mm. Portal vein: The portal vein measures 12 mm. Pancreas:The pancreatic tail is not well seen secondary to overlying bowel gas. Ascites: Moderate Pleural Effusion: Negative Right kidney: The right kidney measures 10.2 cm. in length without evidence of hydronephrosis. Left kidney: Theleft kidney measures 10.6 cm. in length without evidence of hydronephrosis. IVC/Aorta: Partially seen segments demonstrate no abnormality. Maximum transverse dimension the aorta is 2 cm Impression: Hepatosplenomegaly with moderate ascites. There is scalloping of the liver cortex consistent with cirrhosis. The gallbladder is not distended. Thickened wall is presumed secondary to hypoproteinemia. Signed: Bela Rios MD Report Verified Date/Time:02/11/2018 09:32:36 Reading Location: [address] Ultrasound Reading Room Procedure Note Interface, External Ris In - 02/11/2018 9:34 AM CDT FINAL REPORT Abdominal Ultrasound Clinical Diagnosis: Ascites acute renal failure and hydronephrosis Comparison: No comparison ultrasounds Technique: Multiple transaxial and longitudinal images were obtained through the abdomen with real time ultrasonography. Five MHz transducer was utilized. 83 images were submitted for interpretation. Report: Liver: The liver measures 18.8 cm in the right midaxillary line. There are no focal masses. The echogenicity is homogenous. Spleen: The spleen measures 15.1 cm. in the left mid axillary line. Gallbladder: The transverse diameter is 2.2 cm. The wall measures five mm. There are no shadowing stones visualized. Biliary tree: There is no evidence of intra or extra hepatic biliary ductal dilatation. The common bile duct measures six mm. Portal vein: The portal vein measures 12 mm. Pancreas: The pancreatic tail is not well seen secondary to overlying bowel gas. Ascites: Moderate Pleural Effusion: Negative Right kidney: The right kidney measures 10.2 cm. in length without evidence of hydronephrosis. Left kidney: The left kidney measures 10.6 cm. in length without evidence of hydronephrosis. IVC/Aorta: Partially seen segments demonstrate no abnormality. Maximum transverse dimension the aorta is 2 cm Impression: Hepatosplenomegaly with moderate ascites. There is scalloping of the liver cortex consistent with cirrhosis. The gallbladder is not distended. Thickened wall is presumed secondary to hypoproteinemia. Signed: Bela Rios MD Report Verified Date/Time: 02/11/2018 09:32:36 Reading Location: [place] [id number] Ultrasound Reading Room abdomen/pelvis without iv contrast (02/11/2018 12:01 AM) Specimen Performing Laboratory [employer] Narrative FINAL REPORT HISTORY : Hernia, complicated Technique: Multiple axial images of the abdomen and pelvis were performed without the administration of IV contrast from the lung bases to the pubic symphysis. This exam was performed according to our departmental dose optimization program which includes automated exposure control, adjustment of the mA and/or kV according to patient size and/or use of iterative reconstructive technique. COMPARISON : None COMMENT : The lung bases are clear. The visualized spleen, adrenal glands, kidneys, pancreas, stomach and duodenum are within normal limits. There is hepatic cirrhosis. There is atherosclerotic vascular disease. There is cholelithiasis. There is no abdominal, retroperitoneal or pelvic lymphadenopathy. Multilevel degenerative disc changes of the visualized thoracolumbar spine are seen. There is a large right of midline ventral hernia containing fat as well as fluid. No bowel contents are seen within the hernias, however. No free air is identified in the abdomen or pelvis. There is a moderate amount of abdominal ascites/free fluid. No findings of any bowel obstruction. The small bowel is within normal limits. There is colonic diverticulosis. There are no CT findings to suggest diverticulitis, however. Some nonspecific fluid is seen within the large bowel. This finding can be seen in impending diarrhea or a nonspecific enterocolitis. There is some mild nonspecific thickening identified of the ascending colon that could be due to underdistention. A degree of nonspecific colitis or portal colopathy cannot be entirely excluded. The appendix is visualized. There are no CT findings to suggest appendicitis. The uterus is within normal limits. No adnexal masses/lesions are appreciated. Impression: 1. Large, slightly right of midline ventral hernia containing fat and fluid. No bowel contents are seen within the hernia. 2. Hepatic cirrhosis. 3. Moderate amount of abdominal ascites. 4. Long segment wall thickening of the right colon with fluid in the large bowel. Findings could be due to a nonspecific colitis, portal colopathy or underdistention. 5. Cholelithiasis. Signed: Jesse Hathaway MD Report Verified Date/Time:02/11/2018 07:50:19 Reading Location: [facility] Diagnostic Imaging Reading Room - [place] [address] Procedure Note Interface, External Ris In - 02/11/2018 7:52 AM CDT FINAL REPORT HISTORY : Hernia, complicated Technique: Multiple axial images of the abdomen and pelvis were performed without the administration of IV contrast from the lung bases to the pubic symphysis. This exam was performed according to our departmental dose optimization program which includes automated exposure control, adjustment of the mA and/or kV according to patient size and/or use of iterative reconstructive technique. COMPARISON : None COMMENT : The lung bases are clear. The visualized spleen, adrenal glands, kidneys, pancreas, stomach and duodenum are within normal limits. There is hepatic cirrhosis. There is atherosclerotic vascular disease. There is cholelithiasis. There is no abdominal, retroperitoneal or pelvic lymphadenopathy. Multilevel degenerative disc changes of the visualized thoracolumbar spine are seen. There is a large right of midline ventral hernia containing fat as well as fluid. No bowel contents are seen within the hernias, however. No free air is identified in the abdomen or pelvis. There is a moderate amount of abdominal ascites/free fluid. No findings of any bowel obstruction. The small bowel is within normal limits. There is colonic diverticulosis. There are no CT findings to suggest diverticulitis, however. Some nonspecific fluid is seen within the large bowel. This finding can be seen in impending diarrhea or a nonspecific enterocolitis. There is some mild nonspecific thickening identified of the ascending colon that could be due to underdistention. A degree of nonspecific colitis or portal colopathy cannot be entirely excluded. The appendix is visualized. There are no CT findings to suggest appendicitis. The uterus is within normal limits. No adnexal masses/lesions are appreciated. Impression: 1. Large, slightly right of midline ventral hernia containing fat and fluid. No bowel contents are seen within the hernia. 2. Hepatic cirrhosis. 3. Moderate amount of abdominal ascites. 4. Long segment wall thickening of the right colon with fluid in the large bowel. Findings could be due to a nonspecific colitis, portal colopathy or underdistention. 5. Cholelithiasis. Signed: Jesse Hathaway MD Report Verified Date/Time: 02/11/2018 07:50:19 Reading Location: [facility] Diagnostic Imaging Reading Room - [place] [address] Potassium (02/10/2018 9:04 PM)Only the most recent of2 resultswithin the time period is included. Component Value Ref Range Potassium 3.9Comment: Specimen moderately hemolyzed 3.5 - 5.1 meq/L Specimen Performing Laboratory Blood [address] [address] Sodium, random urine (02/10/2018 6:15 PM) Component Value Ref Range Sodium Urine <20 meq/L Specimen Performing Laboratory Urine - Urine, Voided [address] [address] Narrative Reference Range: No Normals Protein, random urine (02/10/2018 6:15 PM) Component Value Ref Range Protein, Urine 19 (H) 0 - 14 mg/dL Specimen Performing Laboratory [facility] [address] [address] Creatinine, random urine (02/10/2018 6:15 PM) Component Value Ref Range Creatinine, Ur 160.3 mg/dL Specimen Performing Laboratory Urine - Urine, Voided [address] [address] Narrative Reference Range: No Normals Screen, urine (02/10/2018 6:14 PM) Component Value Ref Range Preg Test, Ur Negative Specimen Performing Laboratory [facility] [address] [address] REPORT OF PROCEDURE - ENDOSCOPY URL (02/10/2018 4:35 PM)Urinalysis w/ Microscopic + Reflex to Culture (02/10/2018 4:08 AM) Component Value Ref Range Color, UA Yellow Clarity, UA Hazy Specific [place], UA 1.013 1.001 - 1.035 pH, UA 6.0 5.0 - 8.0 Protein, UA 10 mg/dL (A) Negative Glucose, UA Negative Negative Ketones, UA Trace (A) Negative Bilirubin, UA Negative Negative Blood, UA Negative Negative Nitrite, UA Negative Negative Leukocytes, UA Negative Negative Urobilinogen, UA 0.2 0.2 - 1.0 mg/dL RBC, UA <1 /HPF WBC, UA 2 /HPF Bacteria, UA Rare Mucus Rare Squam Epithel, UA 8 /HPF Hyaline Casts, UA 70 /LPF Amorphous Crystals Rare Specimen Source Specimen Performing Laboratory Urine - Urine, Voided [address] [address] Rapid drug screen, urine (02/10/2018 4:08 AM) Component Value Ref Range Barbiturate Screen Negative Negative Benzodiazepine Screen Negative Negative Cocaine (Metab.) Screen Negative Negative Methadone Screen Negative Negative Opiate Screen Negative Negative Cannabinoid Screen Negative Negative Amph/Methamph Screen Negative Negative Phencyclidine Screen Negative Negative Oxycodone Screen Negative Negative Specimen Performing Laboratory Urine - Urine, Voided [address] [address] Narrative DRUGCUTOFF CONC. Cocaine 300 ng/mL Fwzqatejzds84 ng/mL Ltkdjkfrusgnos244 ng/mL Barbiturate 200 ng/mL Ctiklxyyxgrup78 ng/mL Qtjxnm498 ng/mL Methadone 300 ng/mL Amphetamine/ 1000 ng/mL Methamphetamine Oxycodone 300 ng/mL This assay provides an unconfirmed qualitative test result for the clinical management of patients in emergency situations. Chain of custody not maintained. Some ngcw-cvq-smzuwyg medications, as well as adulterants, may cause inaccurate results. Clinical correlation should be applied. A more comprehensive drug screen or confirmation of a detected drug may be performed upon request. ECG 12 lead (02/10/2018 2:05 AM)Only the most recent of2 resultswithin the time period is included. Specimen Performing Laboratory GE MUSE Narrative Ventricular Rate 84 BPM Atrial Rate 84 BPM P-R Interval 138 ms QRS Duration 70 ms Q-T Interval 436 ms QTC Calculation(Bazett) 515 ms P Wallis 94 degrees R Wallis 24 degrees T Wallis 27 degrees Normal sinus rhythm Low voltage QRS Septal infarct (cited on or before 10-FEB-2018) Prolonged QT Abnormal ECG When compared with ECG of 10-FEB-2018 02:05, No significant changes Confirmed by MD MCFARLANE YOCHAI ([id number]) on 02/10/2018 6:23:14 AM Procedure Note Interface, External Ris In - 02/10/2018 6:23 AM CDT Ventricular Rate 84 BPM Atrial Rate 84 BPM P-R Interval 138 ms QRS Duration 70 ms Q-T Interval 436 ms QTC Calculation(Bazett) 515 ms P Wallis 94 degrees R Wallis 24 degrees T Wallis 27 degrees Normal sinus rhythm Low voltage QRS Septal infarct (cited on or before 10-FEB-2018) Prolonged QT Abnormal ECG When compared with ECG of 10-FEB-2018 02:05, No significant changes Confirmed by MD MCFARLANE YOCHAI ([id number]) on 02/10/2018 6:23:14 AM Blood culture (02/10/2018 2:01 AM)Only the most recent of2 resultswithin the time period is included. Component Value Ref Range Result No growth in 5 days Specimen Performing Laboratory Blood - Line, Venous [address] [address] Blood gas, venous (02/10/2018 2:00 AM) Component Value Ref Range pH, Ortiz 7.42 7.32 - 7.42 pCO2, Ortiz 28 (L) 41 - 51 mmHg pO2, Ortiz 34 25 - 40 mmHg O2 Sat, Ortiz 67.6 40.0 - 70.0 % HCO3, Ortiz 17 (L) 21 - 29 mmol/L Base Excess, Ortiz -6.2 (L) -2.0 - 3.0 mmol/L Patient Temperature 37.0 C Specimen Performing Laboratory Blood - Central Venous Line [address] [address] Type and screen, automated (02/10/2018 1:54 AM) Component Value Ref Range ABO/RH AUTOMATED (BEAKER) O POSITIVE Ab Scrn NEGATIVE Specimen Performing Laboratory Blood [address] [address] Troponin I (02/10/2018 1:54 AM) Component Value Ref Range Troponin I <0.01 0.00 - 0.03 ng/mL Specimen Performing Laboratory [address] [address] Narrative Troponin I (TnI) levels must be interpreted in the context of the presenting symptoms and the clinical findings. Elevated TnI levels indicate myocardial damage, but are not specific for ischemic heart disease. Elevated TnI levels are seen in patients with other cardiac conditions (including myocarditis and congestive heart failure), and slight TnI elevations occur in patients with other conditions, including sepsis, renal failure, acidosis, acute neurological disease, and persistent tachyarrhythmia. Lactic acid, venous, whole blood (02/10/2018 1:54 AM) Component Value Ref Range Lactate, Venous 1.2 0.5 - 2.2 mmol/L Specimen Performing Laboratory [address] [address] Narrative Effective 12/07/2015: Units/Reference Range Change New: 0.5-2.2 mmol/LPrevious: 5-20 mg/dL Fibrinogen (02/10/2018 1:54 AM) Component Value Ref Range Fibrinogen 372 225 - 434 mg/dl Specimen Performing Laboratory Blood [address] [address] Lipase (02/10/2018 1:54 AM) Component Value Ref Range Lipase 40 8 - 78 U/L Specimen Performing Laboratory [address] [address] Creatine Kinase (CK), Total and MB (02/10/2018 1:54 AM) Component Value Ref Range Total CK 30 29 - 200 U/L CK-MB 0.4 0.0 - 6.6 ng/mL MB Relative Index 1.3 % Specimen Performing Laboratory [address] [address] Narrative CK-MB Reference Range: <6.7Normal 6.7-10.0Borderline >10.0 Abnormal Ammonia (02/10/2018 1:54 AM) Component Value Ref Range Ammonia 75 (H) 18 - 72 mol/L Specimen Performing Laboratory [address] [address] Ethanol (02/10/2018 1:54 AM) Component Value Ref Range Ethanol Lvl <10 <=10 mg/dL Specimen Performing Laboratory Blood [address] [address] Hepatitis A antibody, IgG (11/27/2017 1:34 PM) Component Value Ref Range Hep A IgG Nonreactive Nonreactive Specimen Performing Laboratory Blood [address] [address] Mitochondrial Antibodies, M2 (11/27/2017 1:34 PM) Component Value Ref Range Mitochondria M2 Ab <20.0 See Note: U Comment: Reference Range: NEGATIVE:< OR=20.0 EQUIVOCAL: 20.1-24.9 POSITIVE:> OR=25.0 Specimen Performing Laboratory Blood [facility] [address] [address] Narrative Performing Lab [facility] [address] [address] I Kamla BULLOCK, PhD, ABIMBOLA Iron, TIBC, % sat. (without ferritin) (11/27/2017 1:34 PM) Component Value Ref Range Iron 37 (L) 40 - 160 ug/dL TIBC 219 (L) 250 - 450 ug/dL Iron % Saturation 17 (L) 20 - 55 % Specimen Performing Laboratory Blood [address] [address] Hepatitis C antibody (11/27/2017 1:34 PM) Component Value Ref Range Hepatitis C Ab Nonreactive Nonreactive Specimen Performing Laboratory Blood [address] [address] Actin (Smooth Muscle) Antibody, IgG (11/27/2017 1:34 [...] 1. Specimen Performing Laboratory Blood [facility] [address] [place] [address] Narrative Performing Lab EZ [facility] [address] [place] [address] Lizette Cason MD, PhD, ABIMBOLA [id number] (11/27/2017 1:34 PM) Component Value Ref Range A-1 Antitrypsin 151.80 90.00 - 200.00 mg/dL Specimen Performing Laboratory Blood [address] [address] LÓPEZ Titer & Pattern (11/27/2017 1:34 PM) Component Value Ref Range LÓPEZ Titer 1:40 LÓPEZ Pattern Speckled Specimen Performing Laboratory Blood [address] [address] Ceruloplasmin (11/27/2017 1:34 PM) Component Value Ref Range Ceruloplasmin 25 18 - 53 mg/dL Comment: Adults:Males: 18-36 mg/dL Females: 18-53 mg/dL Pediatrics:Males (mg/dL)Females (mg/dL) 0-30 Days 8-25 3-28 31 Days-11 Month 15-4815-43 1-3 [id number] 4-6 [id number] 7-9 Fyeww00-1725-15 10-12 [id number] 13-15 [id number] 16-18 [id number] The pediatric ranges are derived from the following criteria: Yehuda SJ, Buck JM, Lorna J et al Pediatric reference ranges for Phzs-6-Vbybabomecelc and ceruloplasmin. Clin. Chem 1997; 43:S1999 Pediatric Reference Ranges, 2nd., [place] Yehudaet al. editors. [employer], [place], [place] 1997. Specimen Performing Laboratory Blood [facility] [address] [address] Narrative Performing Lab *SPL [facility], [address] [place] [address] Folrencia Almanzar MD, PhD Alpha fetoprotein (AFP), tumor marker (11/27/2017 1:34 PM) Component Value Ref Range Alpha-Fetoprotein 4.9 <10.0 ng/mL Specimen Performing Laboratory [address] [address] Hepatitis B core antibody, total (11/27/2017 1:34 PM) Component Value Ref Range Hep B Core Total Ab Nonreactive Nonreactive Specimen Performing Laboratory [address] [address] Hepatitis B surface antibody (11/27/2017 1:34 PM) Component Value Ref Range Hep B S Ab <8.0 <8.0 mIU/mL Specimen Performing Laboratory [address] [address] Hepatitis B surface antigen (11/27/2017 1:34 PM) Component Value Ref Range hepatitis B Surface Ag Nonreactive Nonreactive Specimen Performing Laboratory [address] [address] Anti-Nuclear Antibody (LÓPEZ) (11/27/2017 1:34 PM) Component Value Ref Range LÓPEZ Positive (A) Negative Specimen Performing Laboratory [address] [address] Ferritin (11/27/2017 1:34 PM) Component Value Ref Range Ferritin 237 5 - 275 ng/mL Specimen Performing Laboratory [address] [address] Bilirubin, direct (11/27/2017 1:34 PM) Component Value Ref Range Bilirubin, Direct 0.6 (H) 0.1 - 0.5 mg/dL Specimen Performing Laboratory [address] [address] after 03/03/2017
--- OUTSIDE RECORDS SUMMARY | 2018-03-04 09:37 | XMS REPORT ---
:1970 [facility] Address [address] [place] [address] Care Team Providers Name Role Phone NICK MCKENZIE Unavailable Unavailable RAMON ARIAS Unavailable Unavailable Problems This patient has no known problems. Allergies, Adverse Reactions, Alerts This patient has no known allergies or adverse reactions. Medications This patient has no known medications. Results Test Description Test Time Test Comments Text Results Atomic Results Result Comments BODY FLUID CULTURE + GRAM STAIN 2018-02-17 05:31:00 Test Item Value Reference Range Comments CULTURE (BEAKER) (test cevr=3523) No growth GRAM STAIN RESULT (BEAKER) (test pmyd=5151) <1+ WBCs GRAM STAIN RESULT (BEAKER) (test mrcy=50850) No organisms seen ANAEROBIC [id number] 02:42:00 Test Item Value Reference Range Comments CULTURE (BEAKER) (test mmpe=1613) No anaerobes isolated POCT-GLUCOSE [id number] 13:58:00 Test Item Value Reference Range Comments POC-GLUCOSE METER (BEAKER) 119 mg/dL 70-110 TESTED AT [facility] [address] [facility] (test kiyv=7885) [facility] [address] CBC W/PLT COUNT & AUTO [id number] 09:22:00 Test Item Value Reference Range Comments WHITE BLOOD CELL COUNT (BEAKER) (test bkgz=549) 5.1 K/ L 3.5-10.5 RED BLOOD CELL COUNT (BEAKER) (test cfei=706) 2.79 M/ L 3.93-5.22 HEMOGLOBIN (BEAKER) (test xfso=989) 8.8 GM/DL 11.2-15.7 HEMATOCRIT (BEAKER) (test zvsx=293) 27.2 % 34.1-44.9 MEAN CORPUSCULAR VOLUME (BEAKER) (test bhoh=169) 97.5 fL 79.4-94.8 MEAN CORPUSCULAR HEMOGLOBIN (BEAKER) (test 31.5 pg 25.6-32.2 tvll=617) MEAN CORPUSCULAR HEMOGLOBIN CONC (BEAKER) (test 32.4 GM/DL 32.2-35.5 gpkz=090) RED CELL DISTRIBUTION WIDTH (BEAKER) (test 18.8 % 11.7-14.4 xroe=433) PLATELET COUNT (BEAKER) (test qjsb=338) 86 K/CU MM 150-450 MEAN PLATELET VOLUME (BEAKER) (test pidy=502) 12.6 fL 9.4-12.3 NUCLEATED RED BLOOD CELLS (BEAKER) (test 0 /100 WBC 0-0 cgjn=344) NEUTROPHILS RELATIVE PERCENT (BEAKER) (test 73 % hdqo=858) LYMPHOCYTES RELATIVE PERCENT (BEAKER) (test 7 % ndha=892) MONOCYTES RELATIVE PERCENT (BEAKER) (test 12 % eqfj=886) EOSINOPHILS RELATIVE PERCENT (BEAKER) (test 6 % xyaw=480) BASOPHILS RELATIVE PERCENT (BEAKER) (test 1 % ntux=242) NEUTROPHILS ABSOLUTE COUNT (BEAKER) (test 3.63 K/ L 1.56-6.13 wxuv=860) LYMPHOCYTES ABSOLUTE COUNT (BEAKER) (test 0.36 K/ L 1.18-3.74 wqql=167) MONOCYTES ABSOLUTE COUNT (BEAKER) (test bvkc=307) 0.61 K/ L 0.24-0.36 EOSINOPHILS ABSOLUTE COUNT (BEAKER) (test 0.31 K/ L 0.04-0.36 derw=113) BASOPHILS ABSOLUTE COUNT (BEAKER) (test hzrx=163) 0.06 K/ L 0.01-0.08 IMMATURE GRANULOCYTES-RELATIVE PERCENT (BEAKER) 0 % 0-1 (test cmbo=5836) CBC (HEMOGRAM ONLY)2018-02-15 09:16:00 Test Item Value Reference Range Comments WHITE BLOOD CELL COUNT (BEAKER) (test ovfm=038) 5.1 K/ L 3.5-10.5 RED BLOOD CELL COUNT (BEAKER) (test ccca=885) 2.79 M/ L 3.93-5.22 HEMOGLOBIN (BEAKER) (test ddtg=005) 8.8 GM/DL 11.2-15.7 HEMATOCRIT (BEAKER) (test meyu=175) 27.2 % 34.1-44.9 MEAN CORPUSCULAR VOLUME (BEAKER) (test yncu=182) 97.5 fL 79.4-94.8 MEAN CORPUSCULAR HEMOGLOBIN (BEAKER) (test 31.5 pg 25.6-32.2 yszd=236) MEAN CORPUSCULAR HEMOGLOBIN CONC (BEAKER) (test 32.4 GM/DL 32.2-35.5 chpf=394) RED CELL DISTRIBUTION WIDTH (BEAKER) (test 18.8 % 11.7-14.4 kxoi=373) PLATELET COUNT (BEAKER) (test reid=358) 86 K/CU MM 150-450 MEAN PLATELET VOLUME (BEAKER) (test lvjf=669) 12.6 fL 9.4-12.3 NUCLEATED RED BLOOD CELLS (BEAKER) (test 0 /100 WBC 0-0 gfum=482) POCT-GLUCOSE [id number] 08:54:00 Test Item Value Reference Range Comments POC-GLUCOSE METER (BEAKER) 135 mg/dL 70-110 TESTED AT [address] (test mhrc=4598) [facility] [address] [id number] 06:41:00 Test Item Value Reference Range Comments PHOSPHORUS (BEAKER) (test hftg=395) 3.5 mg/dL 2.3-4.7 [id number] 06:41:00 Test Item Value Reference Range Comments MAGNESIUM (BEAKER) (test nine=651) 1.7 mg/dL 1.6-2.6 BASIC METABOLIC [id number] 06:41:00 Test Item Value Reference Range Comments SODIUM (BEAKER) (test 136 meq/L 136-145 hdqu=533) POTASSIUM (BEAKER) (test 3.2 meq/L 3.5-5.1 aahz=635) CHLORIDE (BEAKER) (test 112 meq/L 98-107 xlrx=404) CO2 (BEAKER) (test 14 meq/L 22-29 lxvq=961) BLOOD UREA NITROGEN 14 mg/dL 7-21 (BEAKER) (test egju=891) CREATININE (BEAKER) (test 0.71 mg/dL 0.57-1.25 sfgj=066) GLUCOSE RANDOM (BEAKER) 92 mg/dL 70-105 (test utxe=054) CALCIUM (BEAKER) (test 8.9 mg/dL 8.4-10.2 ecvx=679) EGFR (BEAKER) (test 88 mL/min/1.73 sq m ESTIMATED GFR IS NOT fywl=1544) ACCURATE CREATININE CLEARANCE IN PREDICTING GLOMERULAR FILTRATION RATE. ESTIMATED GFR IS NOT APPLICABLE FOR DIALYSIS PATIENTS. HEPATIC FUNCTION [id number] 06:41:00 Test Item Value Reference Range Comments TOTAL PROTEIN (BEAKER) (test ymbo=306) 6.3 gm/dL 6.0-8.3 ALBUMIN (BEAKER) (test iymg=1464) 3.9 g/dL 3.5-5.0 BILIRUBIN TOTAL (BEAKER) (test uupf=455) 1.7 mg/dL 0.2-1.2 BILIRUBIN DIRECT (BEAKER) (test utrx=722) 1.0 mg/dL 0.1-0.5 ALKALINE PHOSPHATASE (BEAKER) (test vkfn=054) 126 U/L 40-150 AST (SGOT) (BEAKER) (test qxru=836) 118 U/L 5-34 ALT (SGPT) (BEAKER) (test xeev=758) 56 U/L 6-55 BLOOD [id number] 06:00:00 Test Item Value Reference Range Comments CULTURE (BEAKER) (test kxqs=1200) No growth in 5 days BLOOD [id number] 06:00:00 Test Item Value Reference Range Comments CULTURE (BEAKER) (test yylj=5113) No growth in 5 days POCT-GLUCOSE [id number] 21:33:00 Test Item Value Reference Range Comments POC-GLUCOSE METER (BEAKER) 126 mg/dL 70-110 TESTED AT [address] (test yupd=0100) [facility] [address] BODY FLUID CELL COUNT WITH [id number] 20:39:00 Test Item Value Reference Range Comments APPEARANCE FLUID (BEAKER) (test wndx=175) Bloody Clear COLOR FLUID (BEAKER) (test pqft=529) Red Colorless, Straw RBC FLUID (BEAKER) (test hqwa=283) [address] /cu mm <=1 ADJUSTED WBC FLUID (BEAKER) (test gcrc=2340) 206 /cu mm <=5 LINING CELLS (BEAKER) (test ugwx=0035) 4 /cu mm <=1 NEUTROPHILS FLUID (BEAKER) (test ypiy=5170) 50 % LYMPHS FLUID (BEAKER) (test ccjm=796) 5 % MONO/MACROPHAGE FLUID (BEAKER) (test xoko=419) 45 % EOSINOPHILS FLUID (BEAKER) (test gbxt=377) 0 % BASO FLUID (BEAKER) (test phse=069) 0 % CONTAINER BODY FLUID (BEAKER) (test pwvq=0362) EDTA Tube TISSUE [id number] 18:33:00Surgical Pathology Report Case: [id number] Authorizing Provider: Tamera Mayorga MD Collected: 02/11/2018 1338 Ordering Location: [place] [address] ICU Received: 02/11/2018 1613 Pathologist: Herminia Hope MD Specimen: Hernia Sac, Umbilical SKIN AND HERNIA SAC, EXCISION:- SKIN WITH ULCER, NECROSIS, HERNIA WITH FIBROSIS, ADHESION AND CHRONIC INFLAMMATION Signing Pathologist Direct Phone Line: [phone] umbilical hernia Hernia sac umbilical The specimen is received in a formalin-filled container labeled with the patient's information and labeled "umbilical hernial sac" and consists of hemorrhagic membranous tissue measuring 6 x 3 x 0.2 cm with overlying brown skin measuring 5.5 x 3 x 0.3 cm, submitted in A1 and A2. There are no areas of suspicion. CG/ew PerformedPOCT-GLUCOSE [id number] 18:27:00 Test Item Value Reference Range Comments POC-GLUCOSE METER (BEAKER) 152 mg/dL 70-110 TESTED AT [facility] [address] (test souz=5792) [facility] [address] U/S, [id number] 17:34:00Send fluid for cell ct \\T\\ diff, C\\T\\ SReason for exam:->poss bile leakShould this be performed atthe bedside?-> YesFINAL REPORT Paracentesis: Performing MD: Fish Rios M.D.Preoperative Diagnosis:AscitesPostoperative Diagnosis: AscitesAssistant: noneSpecimen: As requestedEstimated Blood Loss: less than 10 ccComplications: noneAnesthesia: local 2% subcutaneously at the insertion site Grafts or Implants : noneModality: sonographySedation: noneApproach: Right lower quadrant, anterior abdominalwall Technique: After informed written consent was obtained, the patient was prepped and draped in the usual sterile manner. Access was obtained using sonographic guidance. Images documented fluid.The images were saved to PACS. The right lower quadrant anterior abdominal wall was instrumented.A small bore catheter was advanced into the peritoneal space. The patient tolerated the procedure well. Impression:Successful, uncomplicated ultrasound guided paracentesis of the right lower quadrant peritoneal space. 6400 cc of serosanguineous fluid was removed. Signed: Fish Riosort Verified Date/Time: 02/14/2018 17:34:56 Reading Location: [address] Ultrasound Reading Room [id number] 15:56:00 Test Item Value Reference Range Comments PARTIAL THROMBOPLASTIN TIME (BEAKER) (test 28.9 seconds 22.5-36.0 spcd=298) PROTHROMBIN [id number] 15:55:00 Test Item Value Reference Range Comments PROTIME (BEAKER) (test mdbg=472) 18.3 seconds 11.7-14.7 INR (BEAKER) (test qsie=890) 1.5 <=5.9 RECOMMENDED COUMADIN/WARFARIN INR THERAPY RANGESSTANDARD DOSE: 2.0 - 3.0 Includes: PROPHYLAXIS forvenous thrombosis, systemic embolization; TREATMENT for venous thrombosis and/or pulmonary embolus.HIGH RISK: Target INR is 2.5-3.5 for patients with mechanical heart valves.CBC W/PLT COUNT & AUTO [id number] 15:49:00 Test Item Value Reference Range Comments WHITE BLOOD CELL COUNT (BEAKER) (test bkhv=546) 6.5 K/ L 3.5-10.5 RED BLOOD CELL COUNT (BEAKER) (test xyzl=029) 2.69 M/ L 3.93-5.22 HEMOGLOBIN (BEAKER) (test jzqz=597) 8.5 GM/DL 11.2-15.7 HEMATOCRIT (BEAKER) (test ujhl=867) 25.9 % 34.1-44.9 MEAN CORPUSCULAR VOLUME (BEAKER) (test ojmq=652) 96.3 fL 79.4-94.8 MEAN CORPUSCULAR HEMOGLOBIN (BEAKER) (test 31.6 pg 25.6-32.2 rsyv=747) MEAN CORPUSCULAR HEMOGLOBIN CONC (BEAKER) (test 32.8 GM/DL 32.2-35.5 yzcw=317) RED CELL DISTRIBUTION WIDTH (BEAKER) (test 19.0 % 11.7-14.4 xkbn=395) PLATELET COUNT (BEAKER) (test qeog=203) 63 K/CU MM 150-450 MEAN PLATELET VOLUME (BEAKER) (test tjhz=365) 11.6 fL 9.4-12.3 NUCLEATED RED BLOOD CELLS (BEAKER) (test 0 /100 WBC 0-0 iljk=101) NEUTROPHILS RELATIVE PERCENT (BEAKER) (test 82 % bxlg=464) LYMPHOCYTES RELATIVE PERCENT (BEAKER) (test 4 % tqsz=065) MONOCYTES RELATIVE PERCENT (BEAKER) (test 9 % pgyg=071) EOSINOPHILS RELATIVE PERCENT (BEAKER) (test 3 % jczg=931) BASOPHILS RELATIVE PERCENT (BEAKER) (test 1 % htgu=723) NEUTROPHILS ABSOLUTE COUNT (BEAKER) (test 5.30 K/ L 1.56-6.13 cpfo=193) LYMPHOCYTES ABSOLUTE COUNT (BEAKER) (test 0.26 K/ L 1.18-3.74 ldeg=986) MONOCYTES ABSOLUTE COUNT (BEAKER) (test eqbq=957) 0.59 K/ L 0.24-0.36 EOSINOPHILS ABSOLUTE COUNT (BEAKER) (test 0.20 K/ L 0.04-0.36 wuaa=573) BASOPHILS ABSOLUTE COUNT (BEAKER) (test uwat=640) 0.06 K/ L 0.01-0.08 IMMATURE GRANULOCYTES-RELATIVE PERCENT (BEAKER) 1 % 0-1 (test fvaj=4906) POCT-GLUCOSE [id number] 13:10:00 Test Item Value Reference Range Comments POC-GLUCOSE METER (BEAKER) 138 mg/dL 70-110 TESTED AT [place] [id number] [facility] (test hweb=9456) [facility] [address] SURGICALLY OBTAINED CULTURE + GRAM [id number] 11:29:00 Test Item Value Reference Range Comments CULTURE (BEAKER) (test lemp=0756) No growth GRAM STAIN RESULT (BEAKER) (test <1+ WBCs fpcg=7394) GRAM STAIN RESULT (BEAKER) (test No organisms seen jiae=11728) CBC W/PLT COUNT & AUTO [id number] 09:31:00 Test Item Value Reference Range Comments WHITE BLOOD CELL COUNT (BEAKER) (test kbni=276) 5.3 K/ L 3.5-10.5 RED BLOOD CELL COUNT (BEAKER) (test ozgs=864) 2.76 M/ L 3.93-5.22 HEMOGLOBIN (BEAKER) (test fmkz=623) 8.5 GM/DL 11.2-15.7 HEMATOCRIT (BEAKER) (test maxm=012) 26.7 % 34.1-44.9 MEAN CORPUSCULAR VOLUME (BEAKER) (test ccde=366) 96.7 fL 79.4-94.8 MEAN CORPUSCULAR HEMOGLOBIN (BEAKER) (test 30.8 pg 25.6-32.2 syfq=572) MEAN CORPUSCULAR HEMOGLOBIN CONC (BEAKER) (test 31.8 GM/DL 32.2-35.5 avcx=442) RED CELL DISTRIBUTION WIDTH (BEAKER) (test 19.1 % 11.7-14.4 vjao=578) PLATELET COUNT (BEAKER) (test nxnv=259) 82 K/CU MM 150-450 MEAN PLATELET VOLUME (BEAKER) (test gcea=313) 11.5 fL 9.4-12.3 NUCLEATED RED BLOOD CELLS (BEAKER) (test 0 /100 WBC 0-0 rdnj=903) NEUTROPHILS RELATIVE PERCENT (BEAKER) (test 79 % zyhy=957) LYMPHOCYTES RELATIVE PERCENT (BEAKER) (test 6 % cvxb=249) MONOCYTES RELATIVE PERCENT (BEAKER) (test 10 % fjcq=076) EOSINOPHILS RELATIVE PERCENT (BEAKER) (test 3 % zrny=447) BASOPHILS RELATIVE PERCENT (BEAKER) (test 1 % bgdw=669) NEUTROPHILS ABSOLUTE COUNT (BEAKER) (test 4.21 K/ L 1.56-6.13 heja=932) LYMPHOCYTES ABSOLUTE COUNT (BEAKER) (test 0.33 K/ L 1.18-3.74 gdmv=217) MONOCYTES ABSOLUTE COUNT (BEAKER) (test fwom=887) 0.55 K/ L 0.24-0.36 EOSINOPHILS ABSOLUTE COUNT (BEAKER) (test 0.17 K/ L 0.04-0.36 krpf=096) BASOPHILS ABSOLUTE COUNT (BEAKER) (test sqhq=453) 0.05 K/ L 0.01-0.08 IMMATURE GRANULOCYTES-RELATIVE PERCENT (BEAKER) 1 % 0-1 (test agxw=1720) POCT-GLUCOSE [id number] 08:00:00 Test Item Value Reference Range Comments POC-GLUCOSE METER (BEAKER) 100 mg/dL 70-110 TESTED AT [address] (test ncfj=8758) [facility] [address] [id number] 07:25:00 Test Item Value Reference Range Comments PHOSPHORUS (BEAKER) (test fypg=057) 3.0 mg/dL 2.3-4.7 [id number] 07:25:00 Test Item Value Reference Range Comments MAGNESIUM (BEAKER) (test pmwh=418) 2.0 mg/dL 1.6-2.6 HEPATIC FUNCTION [id number] 07:25:00 Test Item Value Reference Range Comments TOTAL PROTEIN (BEAKER) (test cqbj=949) 6.5 gm/dL 6.0-8.3 ALBUMIN (BEAKER) (test xwnz=0514) 4.2 g/dL 3.5-5.0 BILIRUBIN TOTAL (BEAKER) (test fgfg=462) 1.7 mg/dL 0.2-1.2 BILIRUBIN DIRECT (BEAKER) (test sjtr=471) 1.1 mg/dL 0.1-0.5 ALKALINE PHOSPHATASE (BEAKER) (test dwjx=289) 140 U/L 40-150 AST (SGOT) (BEAKER) (test krfa=330) 182 U/L 5-34 ALT (SGPT) (BEAKER) (test dpuy=970) 58 U/L 6-55 POCT-GLUCOSE [id number] 23:06:00 Test Item Value Reference Range Comments POC-GLUCOSE METER (BEAKER) 106 mg/dL 70-110 TESTED AT [address] (test hrxr=1472) [facility] [address] POCT-GLUCOSE [id number] 17:34:00 Test Item Value Reference Range Comments POC-GLUCOSE METER (BEAKER) 149 mg/dL 70-110 TESTED AT [address] (test squn=9836) [facility] [address] POCT-GLUCOSE [id number] 11:39:00 Test Item Value Reference Range Comments POC-GLUCOSE METER (BEAKER) 117 mg/dL 70-110 TESTED AT [facility] [address] [facility] (test wyau=0709) [facility] [address] POCT-GLUCOSE [id number] 08:13:00 Test Item Value Reference Range Comments POC-GLUCOSE METER (BEAKER) 126 mg/dL 70-110 TESTED AT [facility] [address] [facility] (test vknn=7632) [facility] [address] [id number] 06:41:00 Test Item Value Reference Range Comments PHOSPHORUS (BEAKER) (test dmev=397) 2.1 mg/dL 2.3-4.7 [id number] 06:41:00 Test Item Value Reference Range Comments MAGNESIUM (BEAKER) (test bboi=152) 2.1 mg/dL 1.6-2.6 HEPATIC FUNCTION [id number] 06:41:00 Test Item Value Reference Range Comments TOTAL PROTEIN (BEAKER) (test hjzv=646) 6.6 gm/dL 6.0-8.3 ALBUMIN (BEAKER) (test yvse=6247) 4.5 g/dL 3.5-5.0 BILIRUBIN TOTAL (BEAKER) (test plfp=479) 1.0 mg/dL 0.2-1.2 BILIRUBIN DIRECT (BEAKER) (test eqai=575) 0.6 mg/dL 0.1-0.5 ALKALINE PHOSPHATASE (BEAKER) (test oyhf=218) 56 U/L 40-150 AST (SGOT) (BEAKER) (test mlfp=321) 51 U/L 5-34 ALT (SGPT) (BEAKER) (test egkr=494) 17 U/L 6-55 COMPREHENSIVE METABOLIC [id number] 06:41:00 Test Item Value Reference Range Comments TOTAL PROTEIN (BEAKER) 6.6 gm/dL 6.0-8.3 (test txom=306) ALBUMIN (BEAKER) (test 4.5 g/dL 3.5-5.0 lejc=2687) ALKALINE PHOSPHATASE 56 U/L 40-150 (BEAKER) (test ghdy=933) BILIRUBIN TOTAL (BEAKER) 1.0 mg/dL 0.2-1.2 (test pygs=450) SODIUM (BEAKER) (test 138 meq/L 136-145 orxa=586) POTASSIUM (BEAKER) (test 3.3 meq/L 3.5-5.1 vuha=912) CHLORIDE (BEAKER) (test 114 meq/L 98-107 drbe=520) CO2 (BEAKER) (test 15 meq/L 22-29 xbsq=621) BLOOD UREA NITROGEN 15 mg/dL 7-21 (BEAKER) (test zpjb=118) CREATININE (BEAKER) (test 0.83 mg/dL 0.57-1.25 hnzx=432) GLUCOSE RANDOM (BEAKER) 108 mg/dL 70-105 (test jlid=325) CALCIUM (BEAKER) (test 9.0 mg/dL 8.4-10.2 wobz=149) AST (SGOT) (BEAKER) (test 51 U/L 5-34 kjwf=475) ALT (SGPT) (BEAKER) (test 17 U/L 6-55 baue=323) EGFR (BEAKER) (test 73 mL/min/1.73 sq m ESTIMATED GFR IS NOT krzu=4597) ACCURATE CREATININE CLEARANCE IN PREDICTING GLOMERULAR FILTRATION RATE. ESTIMATED GFR IS NOT APPLICABLE FOR DIALYSIS PATIENTS. CBC W/PLT COUNT & AUTO [id number] 06:25:00 Test Item Value Reference Range Comments WHITE BLOOD CELL COUNT (BEAKER) (test ibsh=752) 6.7 K/ L 3.5-10.5 RED BLOOD CELL COUNT (BEAKER) (test yatu=776) 2.17 M/ L 3.93-5.22 HEMOGLOBIN (BEAKER) (test rqma=493) 6.8 GM/DL 11.2-15.7 HEMATOCRIT (BEAKER) (test qgmm=455) 21.8 % 34.1-44.9 MEAN CORPUSCULAR VOLUME (BEAKER) (test mbed=867) 100.5 fL 79.4-94.8 MEAN CORPUSCULAR HEMOGLOBIN (BEAKER) (test 31.3 pg 25.6-32.2 axxx=209) MEAN CORPUSCULAR HEMOGLOBIN CONC (BEAKER) (test 31.2 GM/DL 32.2-35.5 zbfk=431) RED CELL DISTRIBUTION WIDTH (BEAKER) (test 19.9 % 11.7-14.4 wspd=168) PLATELET COUNT (BEAKER) (test ibub=594) 84 K/CU MM 150-450 MEAN PLATELET VOLUME (BEAKER) (test wklm=980) 11.1 fL 9.4-12.3 NUCLEATED RED BLOOD CELLS (BEAKER) (test 0 /100 WBC 0-0 nhkh=639) NEUTROPHILS RELATIVE PERCENT (BEAKER) (test 84 % zrnf=257) LYMPHOCYTES RELATIVE PERCENT (BEAKER) (test 4 % eghh=423) MONOCYTES RELATIVE PERCENT (BEAKER) (test 12 % invu=020) EOSINOPHILS RELATIVE PERCENT (BEAKER) (test 0 % cyws=711) BASOPHILS RELATIVE PERCENT (BEAKER) (test 0 % losl=402) NEUTROPHILS ABSOLUTE COUNT (BEAKER) (test 5.59 K/ L 1.56-6.13 kuyj=485) LYMPHOCYTES ABSOLUTE COUNT (BEAKER) (test 0.25 K/ L 1.18-3.74 jciy=494) MONOCYTES ABSOLUTE COUNT (BEAKER) (test vefh=661) 0.77 K/ L 0.24-0.36 EOSINOPHILS ABSOLUTE COUNT (BEAKER) (test 0.02 K/ L 0.04-0.36 dsez=002) BASOPHILS ABSOLUTE COUNT (BEAKER) (test htgm=492) 0.00 K/ L 0.01-0.08 IMMATURE GRANULOCYTES-RELATIVE PERCENT (BEAKER) 1 % 0-1 (test ekmv=9391) SPIN/CONCENTRATION [id number] 15:23:00 Test Item Value Reference Range Comments CONCENTRATION CHARGED (BEAKER) (test lrqb=5596) Done POCT-GLUCOSE [id number] 08:15:00 Test Item Value Reference Range Comments POC-GLUCOSE METER (BEAKER) 147 mg/dL 70-110 TESTED AT [address] (test krqj=7436) [facility] [address] HIV-1 ANTIGEN WITH HIV-1/2 [id number] 06:57:00 Test Item Value Reference Range Comments HIV-1 ANTIGEN WITH HIV 1\\T\\2 ANTIBODY (2) Nonreactive Nonreactive (BEAKER) (test ghtg=6888) [id number] 06:35:00 Test Item Value Reference Range Comments PHOSPHORUS (BEAKER) (test mhfk=060) 2.8 mg/dL 2.3-4.7 [id number] 06:35:00 Test Item Value Reference Range Comments MAGNESIUM (BEAKER) (test teei=997) 1.9 mg/dL 1.6-2.6 BASIC METABOLIC [id number] 06:35:00 Test Item Value Reference Range Comments SODIUM (BEAKER) (test 133 meq/L 136-145 emly=284) POTASSIUM (BEAKER) (test 3.9 meq/L 3.5-5.1 zqdu=268) CHLORIDE (BEAKER) (test 111 meq/L 98-107 gkaa=602) CO2 (BEAKER) (test 13 meq/L 22-29 pboq=781) BLOOD UREA NITROGEN 18 mg/dL 7-21 (BEAKER) (test eozu=436) CREATININE (BEAKER) (test 0.86 mg/dL 0.57-1.25 ozyk=600) GLUCOSE RANDOM (BEAKER) 142 mg/dL 70-105 (test iwxq=152) CALCIUM (BEAKER) (test 8.7 mg/dL 8.4-10.2 qkey=287) EGFR (BEAKER) (test 70 mL/min/1.73 sq m ESTIMATED GFR IS NOT pwto=0869) ACCURATE CREATININE CLEARANCE IN PREDICTING GLOMERULAR FILTRATION RATE. ESTIMATED GFR IS NOT APPLICABLE FOR DIALYSIS PATIENTS. HEPATIC FUNCTION [id number] 06:35:00 Test Item Value Reference Range Comments TOTAL PROTEIN (BEAKER) (test rusx=842) 6.4 gm/dL 6.0-8.3 ALBUMIN (BEAKER) (test hojc=0724) 4.0 g/dL 3.5-5.0 BILIRUBIN TOTAL (BEAKER) (test lrga=138) 1.5 mg/dL 0.2-1.2 BILIRUBIN DIRECT (BEAKER) (test uypp=538) 0.9 mg/dL 0.1-0.5 ALKALINE PHOSPHATASE (BEAKER) (test djwn=404) 46 U/L 40-150 AST (SGOT) (BEAKER) (test oyzl=273) 32 U/L 5-34 ALT (SGPT) (BEAKER) (test nwyy=034) 12 U/L 6-55 CBC W/PLT COUNT & AUTO [id number] 06:26:00 Test Item Value Reference Range Comments WHITE BLOOD CELL COUNT (BEAKER) (test mzzj=349) 6.4 K/ L 3.5-10.5 RED BLOOD CELL COUNT (BEAKER) (test xhas=565) 2.47 M/ L 3.93-5.22 HEMOGLOBIN (BEAKER) (test ieki=134) 7.5 GM/DL 11.2-15.7 HEMATOCRIT (BEAKER) (test hcnk=111) 24.3 % 34.1-44.9 MEAN CORPUSCULAR VOLUME (BEAKER) (test bjhz=549) 98.4 fL 79.4-94.8 MEAN CORPUSCULAR HEMOGLOBIN (BEAKER) (test 30.4 pg 25.6-32.2 pvjd=523) MEAN CORPUSCULAR HEMOGLOBIN CONC (BEAKER) (test 30.9 GM/DL 32.2-35.5 ldjm=224) RED CELL DISTRIBUTION WIDTH (BEAKER) (test 20.0 % 11.7-14.4 sfee=650) PLATELET COUNT (BEAKER) (test rxqm=781) 85 K/CU MM 150-450 MEAN PLATELET VOLUME (BEAKER) (test gafa=319) 11.3 fL 9.4-12.3 NUCLEATED RED BLOOD CELLS (BEAKER) (test 0 /100 WBC 0-0 cbow=603) NEUTROPHILS RELATIVE PERCENT (BEAKER) (test 92 % eync=446) LYMPHOCYTES RELATIVE PERCENT (BEAKER) (test 3 % sthm=979) MONOCYTES RELATIVE PERCENT (BEAKER) (test 5 % spnj=860) EOSINOPHILS RELATIVE PERCENT (BEAKER) (test 0 % etey=337) BASOPHILS RELATIVE PERCENT (BEAKER) (test 0 % zyvi=529) NEUTROPHILS ABSOLUTE COUNT (BEAKER) (test 5.89 K/ L 1.56-6.13 xsao=076) LYMPHOCYTES ABSOLUTE COUNT (BEAKER) (test 0.19 K/ L 1.18-3.74 yesi=572) MONOCYTES ABSOLUTE COUNT (BEAKER) (test jicn=910) 0.31 K/ L 0.24-0.36 EOSINOPHILS ABSOLUTE COUNT (BEAKER) (test 0.00 K/ L 0.04-0.36 efsu=695) BASOPHILS ABSOLUTE COUNT (BEAKER) (test uqsc=148) 0.00 K/ L 0.01-0.08 IMMATURE GRANULOCYTES-RELATIVE PERCENT (BEAKER) 1 % 0-1 (test abeb=3647) POCT-GLUCOSE [id number] 00:47:00 Test Item Value Reference Range Comments POC-GLUCOSE METER (BEAKER) 220 mg/dL 70-110 TESTED AT [address] (test xrus=6803) [facility] [id number] 19:57:00 Test Item Value Reference Range Comments PHOSPHORUS (BEAKER) (test qjpv=912) 2.9 mg/dL 2.3-4.7 [id number] 19:57:00 Test Item Value Reference Range Comments MAGNESIUM (BEAKER) (test kcmy=261) 1.7 mg/dL 1.6-2.6 [id number] 16:27:00 Test Item Value Reference Range Comments PROTIME (BEAKER) (test cxvt=346) 18.7 seconds 11.7-14.7 INR (BEAKER) (test iokp=151) 1.6 <=5.9 PARTIAL THROMBOPLASTIN TIME (BEAKER) (test 36.5 seconds 22.5-36.0 rjuq=165) RECOMMENDED COUMADIN/WARFARIN INR THERAPY RANGESSTANDARD DOSE: 2.0 - 3.0 Includes: PROPHYLAXIS forvenous thrombosis, systemic embolization; TREATMENT for venous thrombosis and/or pulmonary embolus.HIGH RISK: Target INR is 2.5-3.5 for patients with mechanical heart valves.BASIC METABOLIC [id number] 16:24: 00 Test Item Value Reference Range Comments SODIUM (BEAKER) (test 136 meq/L 136-145 ylip=006) POTASSIUM (BEAKER) (test 3.7 meq/L 3.5-5.1 nctq=351) CHLORIDE (BEAKER) (test 113 meq/L 98-107 qfif=860) CO2 (BEAKER) (test 16 meq/L 22-29 mgmn=357) BLOOD UREA NITROGEN 20 mg/dL 7-21 (BEAKER) (test adov=070) CREATININE (BEAKER) (test 1.03 mg/dL 0.57-1.25 hisj=644) GLUCOSE RANDOM (BEAKER) 133 mg/dL 70-105 (test lclo=044) CALCIUM (BEAKER) (test 8.2 mg/dL 8.4-10.2 pwfr=848) EGFR (BEAKER) (test 57 mL/min/1.73 sq m ESTIMATED GFR IS NOT bssy=3559) ACCURATE CREATININE CLEARANCE IN PREDICTING GLOMERULAR FILTRATION RATE. ESTIMATED GFR IS NOT APPLICABLE FOR DIALYSIS PATIENTS. CBC W/PLT COUNT & AUTO [id number] 16:00:00 Test Item Value Reference Range Comments WHITE BLOOD CELL COUNT (BEAKER) (test efpj=263) 4.6 K/ L 3.5-10.5 RED BLOOD CELL COUNT (BEAKER) (test aebk=984) 2.57 M/ L 3.93-5.22 HEMOGLOBIN (BEAKER) (test bvti=967) 7.9 GM/DL 11.2-15.7 HEMATOCRIT (BEAKER) (test nkrr=433) 24.9 % 34.1-44.9 MEAN CORPUSCULAR VOLUME (BEAKER) (test urox=038) 96.9 fL 79.4-94.8 MEAN CORPUSCULAR HEMOGLOBIN (BEAKER) (test 30.7 pg 25.6-32.2 szru=659) MEAN CORPUSCULAR HEMOGLOBIN CONC (BEAKER) (test 31.7 GM/DL 32.2-35.5 jzsh=334) RED CELL DISTRIBUTION WIDTH (BEAKER) (test 20.0 % 11.7-14.4 xtit=355) PLATELET COUNT (BEAKER) (test vyqp=557) 101 K/CU MM 150-450 MEAN PLATELET VOLUME (BEAKER) (test hunx=183) 10.5 fL 9.4-12.3 NUCLEATED RED BLOOD CELLS (BEAKER) (test 0 /100 WBC 0-0 unlm=444) NEUTROPHILS RELATIVE PERCENT (BEAKER) (test 94 % vcxc=731) LYMPHOCYTES RELATIVE PERCENT (BEAKER) (test 3 % vmic=677) MONOCYTES RELATIVE PERCENT (BEAKER) (test 2 % bynb=254) EOSINOPHILS RELATIVE PERCENT (BEAKER) (test 1 % swvw=781) BASOPHILS RELATIVE PERCENT (BEAKER) (test 1 % sawf=337) NEUTROPHILS ABSOLUTE COUNT (BEAKER) (test 4.31 K/ L 1.56-6.13 pueb=530) LYMPHOCYTES ABSOLUTE COUNT (BEAKER) (test 0.12 K/ L 1.18-3.74 ypem=183) MONOCYTES ABSOLUTE COUNT (BEAKER) (test 0.10 K/ L 0.24-0.36 mhod=653) EOSINOPHILS ABSOLUTE COUNT (BEAKER) (test 0.03 K/ L 0.04-0.36 ikxw=775) BASOPHILS ABSOLUTE COUNT (BEAKER) (test 0.03 K/ L 0.01-0.08 kscf=564) IMMATURE GRANULOCYTES-RELATIVE PERCENT (BEAKER) 0 % 0-1 (test ljcf=1846) HGB/HCT (H&H) - STAT [id number] 13:33:00 Test Item Value Reference Range Comments HEMOGLOBIN (BEAKER) (test dquq=625) 8.7 g/dL 12.0-15.0 HEMATOCRIT (BEAKER) (test snbc=653) 26.0 % 36.0-45.0 THIS IS A VENOUS SAMPLECALCIUM, [id number] 13:33:00 Test Item Value Reference Range Comments CALCIUM IONIZED (BEAKER) (test ybeb=300) 1.07 mmol/L 1.12-1.27 PH, BLOOD (BEAKER) (test xgtv=6535) 7.28 GLUCOSE-STAT [id number] 13:33:00 Test Item Value Reference Range Comments GLUCOSE RANDOM (BEAKER) (test njiv=901) 122 mg/dL 70-110 THIS IS A VENOUS SAMPLETHIS IS A VENOUS SAMPLETHIS IS A VENOUS SAMPLESODIUM NA- STAT [id number] 13:32:00 Test Item Value Reference Range Comments SODIUM (BEAKER) (test nioz=470) 135 meq/L 135-148 THIS IS A VENOUS SAMPLETHIS IS A VENOUS SAMPLETHIS IS A VENOUS SAMPLEPOTASSIUM- STAT [id number] 13:32:00 Test Item Value Reference Range Comments POTASSIUM (BEAKER) (test rhqa=898) 3.9 meq/L 3.6-5.5 THIS IS A VENOUS SAMPLETHIS IS A VENOUS SAMPLETHIS IS A VENOUS SAMPLEU/S, ABDOMINAL, [id number] 09:32:00Reason for exam:->ascites, acute renal failure, hydronephrosisShould this be performed at the bedside?->YesFINAL REPORT Abdominal Ultrasound Clinical Diagnosis: Ascites acute renal failure and hydronephrosis Comparison: No comparison ultrasounds Technique: Multiple transaxial and longitudinal images were obtained through the abdomen with real time ultrasonography. Five MHz transducer was utilized. 83 images were submitted for interpretation. Report:Liver: The liver measures 18.8 cm in the right midaxillary line. There are no focal masses. The echogenicity is homogenous.Spleen:The spleen measures 15.1 cm. in the left mid axillary line. Gallbladder: The transverse diameter is 2.2 cm. The wall measures five mm. There are no shadowing stones visualized. Biliary tree : There is no evidence of intra or extra hepatic biliary ductal dilatation. The common bile duct measures six mm.Portal vein: The portal vein measures 12 mm. Pancreas: The pancreatic tail is not well seen secondary to overlying bowel gas. Ascites: ModeratePleural Effusion: NegativeRight kidney: The right kidney measures 10.2 cm. in length without evidence of hydronephrosis.Left kidney: The leftkidney measures 10.6 cm. in length without evidence of hydronephrosis.IVC/Aorta: Partially seen segments demonstrate no abnormality. Maximum transverse dimension the aorta is 2 cm Impression: Hepatosplenomegaly with moderate ascites. There is scalloping of the liver cortex consistent with cirrhosis.Thegallbladder is not distended. Thickened wall is presumed secondary to hypoproteinemia. Signed: Fish Rios MDReport Verified Date/Time: 02/11/2018 09:32:36 Reading Location: [address] Ultrasound Reading Room Electronically signed by: FISH RIOS M.D. on 05/2018 09:32 AMPOCT-GLUCOSE [id number] 08:05:00 Test Item Value Reference Range Comments POC-GLUCOSE METER (BEAKER) 117 mg/dL 70-110 TESTED AT [facility] [address] [place] [address] (test jdwh=7104) [facility] [address] COMPREHENSIVE METABOLIC [id number] 07:53:00 Test Item Value Reference Range Comments TOTAL PROTEIN (BEAKER) 6.1 gm/dL 6.0-8.3 (test wdox=334) ALBUMIN (BEAKER) (test 3.2 g/dL 3.5-5.0 mkff=2127) ALKALINE PHOSPHATASE 58 U/L 40-150 (BEAKER) (test orzr=272) BILIRUBIN TOTAL (BEAKER) 1.6 mg/dL 0.2-1.2 (test zfyh=582) SODIUM (BEAKER) (test 135 meq/L 136-145 pqvm=015) POTASSIUM (BEAKER) (test 3.5 meq/L 3.5-5.1 jxmu=538) CHLORIDE (BEAKER) (test 111 meq/L 98-107 becv=841) CO2 (BEAKER) (test 17 meq/L 22-29 zqhv=192) BLOOD UREA NITROGEN 25 mg/dL 7-21 (BEAKER) (test qyub=799) CREATININE (BEAKER) (test 1.29 mg/dL 0.57-1.25 faqi=674) GLUCOSE RANDOM (BEAKER) 110 mg/dL 70-105 (test mrnm=838) CALCIUM (BEAKER) (test 8.5 mg/dL 8.4-10.2 homr=101) AST (SGOT) (BEAKER) (test 39 U/L 5-34 fpse=421) ALT (SGPT) (BEAKER) (test 13 U/L 6-55 vtrg=727) EGFR (BEAKER) (test 44 mL/min/1.73 sq m ESTIMATED GFR IS NOT pfbk=8085) ACCURATE CREATININE CLEARANCE IN PREDICTING GLOMERULAR FILTRATION RATE. ESTIMATED GFR IS NOT APPLICABLE FOR DIALYSIS PATIENTS. CT, [id number] 07:50:00FINAL REPORT HISTORY : Hernia, complicated Technique: Multiple axial images of the abdomen and pelvis were performed without the administration of IV contrast from the lung basesto the pubic symphysis. This exam was performed [...] findings to suggest appendicitis. The uterus is withinnormal limits. No adnexal masses/ lesions are appreciated. Impression: 1. Large, slightly right [...] or underdistention. 5. Cholelithiasis. Signed: Jesse Hathaway MDReport Verified Date/ Time: 02/11/2018 07:50:19 Reading Location: [facility] Diagnostic Imaging Reading Room - [place] [id number] Electronically signed by: JESSE HATHAWAY M.D. on 2017 07:50 [id number] 07:06:00 Test Item Value Reference Range Comments PROTIME (BEAKER) (test riay=491) 17.3 seconds 11.7-14.7 INR (BEAKER) (test yutm=587) 1.4 <=5.9 PARTIAL THROMBOPLASTIN TIME (BEAKER) (test 34.7 seconds 22.5-36.0 nish=319) RECOMMENDED COUMADIN/WARFARIN INR THERAPY RANGESSTANDARD DOSE: 2.0 - 3.0 Includes: PROPHYLAXIS forvenous thrombosis, systemic embolization; TREATMENT for venous thrombosis and/or pulmonary embolus.HIGH RISK: Target INR is 2.5-3.5 for patients with mechanical heart valves.CBC W/PLT COUNT & AUTO [id number] 06:22:00 Test Item Value Reference Range Comments WHITE BLOOD CELL COUNT (BEAKER) (test aeqm=160) 4.1 K/ L 3.5-10.5 RED BLOOD CELL COUNT (BEAKER) (test jllb=587) 2.36 M/ L 3.93-5.22 HEMOGLOBIN (BEAKER) (test btie=664) 7.5 GM/DL 11.2-15.7 HEMATOCRIT (BEAKER) (test kgbe=425) 22.9 % 34.1-44.9 MEAN CORPUSCULAR VOLUME (BEAKER) (test fkwd=376) 97.0 fL 79.4-94.8 MEAN CORPUSCULAR HEMOGLOBIN (BEAKER) (test 31.8 pg 25.6-32.2 omql=293) MEAN CORPUSCULAR HEMOGLOBIN CONC (BEAKER) (test 32.8 GM/DL 32.2-35.5 bxkz=791) RED CELL DISTRIBUTION WIDTH (BEAKER) (test 21.1 % 11.7-14.4 qnqg=052) PLATELET COUNT (BEAKER) (test kjwj=101) 131 K/CU MM 150-450 MEAN PLATELET VOLUME (BEAKER) (test anvs=751) 11.0 fL 9.4-12.3 NUCLEATED RED BLOOD CELLS (BEAKER) (test 0 /100 WBC 0-0 acil=004) NEUTROPHILS RELATIVE PERCENT (BEAKER) (test 69 % yyyd=422) LYMPHOCYTES RELATIVE PERCENT (BEAKER) (test 11 % mvuw=257) MONOCYTES RELATIVE PERCENT (BEAKER) (test 15 % zvbo=650) EOSINOPHILS RELATIVE PERCENT (BEAKER) (test 4 % ljsp=572) BASOPHILS RELATIVE PERCENT (BEAKER) (test 1 % lovu=504) NEUTROPHILS ABSOLUTE COUNT (BEAKER) (test 2.82 K/ L 1.56-6.13 mwow=225) LYMPHOCYTES ABSOLUTE COUNT (BEAKER) (test 0.43 K/ L 1.18-3.74 nxva=308) MONOCYTES ABSOLUTE COUNT (BEAKER) (test 0.60 K/ L 0.24-0.36 qlht=325) EOSINOPHILS ABSOLUTE COUNT (BEAKER) (test 0.17 K/ L 0.04-0.36 qdea=079) BASOPHILS ABSOLUTE COUNT (BEAKER) (test 0.03 K/ L 0.01-0.08 svtm=716) IMMATURE GRANULOCYTES-RELATIVE PERCENT (BEAKER) 1 % 0-1 (test xwkx=9225) POCT-GLUCOSE [id number] 00:49:00 Test Item Value Reference Range Comments POC-GLUCOSE METER (BEAKER) 95 mg/dL 70-110 TESTED AT [facility] [address] [facility] (test oapg=5598) [facility] [address] [id number] 21:49:00 Test Item Value Reference Range Comments POTASSIUM (BEAKER) (test 3.9 meq/L 3.5-5.1 Specimen moderately hemolyzed ngzu=543) SODIUM, RANDOM [id number] 19:06:00 Test Item Value Reference Range Comments SODIUM URINE (BEAKER) (test iihv=511) < meq/L Reference Range: No NormalsCREATININE, RANDOM [id number] 19:02:00 Test Item Value Reference Range Comments CREATININE URINE (BEAKER) (test qbuh=544) 160.3 mg/dL Reference Range: No NormalsPROTEIN, RANDOM [id number] 19:02:00 Test Item Value Reference Range Comments PROTEIN, URINE (BEAKER) (test okpm=4774) 19 mg/dL 0-14 SCREEN, [id number] 18:47:00 Test Item Value Reference Range Comments TEST URINE (BEAKER) (test xipb=098) Negative POCT-GLUCOSE [id number] 18:08:00 Test Item Value Reference Range Comments POC-GLUCOSE METER (BEAKER) 183 mg/dL 70-110 TESTED AT [address] (test ioih=3477) [facility] [address] [id number] 13:33:00 Test Item Value Reference Range Comments POTASSIUM (BEAKER) (test iuld=909) 3.2 meq/L 3.5-5.1 CBC (HEMOGRAM ONLY)2018-02-10 13:20:00 Test Item Value Reference Range Comments WHITE BLOOD CELL COUNT 4.6 K/ L 3.5-10.5 (BEAKER) (test uivi=160) RED BLOOD CELL COUNT (BEAKER) 2.47 M/ L 3.93-5.22 (test zigh=178) HEMOGLOBIN (BEAKER) (test 7.6 GM/DL 11.2-15.7 nhcu=802) HEMATOCRIT (BEAKER) (test 23.0 % 34.1-44.9 kiat=823) MEAN CORPUSCULAR VOLUME 93.1 fL 79.4-94.8 Discordant from previous (BEAKER) (test awgv=013) results. Clinical correlation suggested. MEAN CORPUSCULAR HEMOGLOBIN 30.8 pg 25.6-32.2 (BEAKER) (test nwab=911) MEAN CORPUSCULAR HEMOGLOBIN 33.0 GM/DL 32.2-35.5 CONC (BEAKER) (test kkcd=353) RED CELL DISTRIBUTION WIDTH 20.5 % 11.7-14.4 (BEAKER) (test cjye=627) PLATELET COUNT (BEAKER) (test 111 K/CU MM 150-450 bamr=278) MEAN PLATELET VOLUME (BEAKER) 11.2 fL 9.4-12.3 (test mzoy=069) NUCLEATED RED BLOOD CELLS 0 /100 WBC 0-0 (BEAKER) (test kjuq=889) POCT-GLUCOSE [id number] 11:51:00 Test Item Value Reference Range Comments POC-GLUCOSE METER (BEAKER) 123 mg/dL 70-110 TESTED AT [place] [id number] [facility] (test kjnu=9391) [facility] [address] POCT-GLUCOSE [id number] 06:46:00 Test Item Value Reference Range Comments POC-GLUCOSE METER (BEAKER) 237 mg/dL 70-110 TESTED AT [address] (test nmwp=0147) [facility] [address] CBC (HEMOGRAM ONLY)2018-02-10 06:44:00 Test Item Value Reference Range Comments WHITE BLOOD CELL COUNT (BEAKER) (test pyyl=290) 2.8 K/ L 3.5-10.5 RED BLOOD CELL COUNT (BEAKER) (test czop=419) 2.34 M/ L 3.93-5.22 HEMOGLOBIN (BEAKER) (test jisl=277) 7.2 GM/DL 11.2-15.7 HEMATOCRIT (BEAKER) (test xpeo=198) 22.8 % 34.1-44.9 MEAN CORPUSCULAR VOLUME (BEAKER) (test uomy=981) 97.4 fL 79.4-94.8 MEAN CORPUSCULAR HEMOGLOBIN (BEAKER) (test 30.8 pg 25.6-32.2 fnny=096) MEAN CORPUSCULAR HEMOGLOBIN CONC (BEAKER) (test 31.6 GM/DL 32.2-35.5 vdnd=964) RED CELL DISTRIBUTION WIDTH (BEAKER) (test 20.3 % 11.7-14.4 xmnk=338) PLATELET COUNT (BEAKER) (test obhy=641) 102 K/CU MM 150-450 MEAN PLATELET VOLUME (BEAKER) (test azdh=809) 11.3 fL 9.4-12.3 NUCLEATED RED BLOOD CELLS (BEAKER) (test 0 /100 WBC 0-0 mxic=017) RAPID DRUG SCREEN, [id number] 06:12:00 Test Item Value Reference Range Comments BARBITURATE URINE (BEAKER) (test zwvt=764) Negative Negative BENZODIAZEPINE SCREEN URINE (BEAKER) (test Negative Negative jugf=417) COCAINE (METAB.) SCREEN (BEAKER) (test afsh=1592) Negative Negative METHADONE SCREEN (BEAKER) (test bcpv=9272) Negative Negative OPIATE SCREEN URINE (BEAKER) (test whxr=796) Negative Negative CANNABINOID SCREEN URINE (BEAKER) (test cxqb=330) Negative Negative AMPH/METHAMPH SCREEN (BEAKER) (test szwg=7293) Negative Negative PHENCYCLIDINE SCREEN URINE (BEAKER) (test ipue=925) Negative Negative OXYCODONE SCREEN URINE (BEAKER) (test njfo=9966) Negative Negative DRUG CUTOFF CONC.Cocaine 300 ng/mL Cannabinoid 50 ng/mL Benzodiazepine 200 ng/mLBarbiturate 200 ng/ mLPhencyclidine 25 ng/mLOpiate 300 ng/mLMethadone 300 ng/mLAmphetamine/ 1000 ng/mL MethamphetamineOxycodone 300 ng/mLThis assay provides an unconfirmed qualitative test result for the clinical management of patients in emergency situations. Chain of custody not maintained. Some hwrf-jjg-gvpqvrc medications, as well as adulterants, may cause inaccurate results. Clinical correlation should be applied. A more comprehensive drug screen or confirmation of a detected drug may be performed upon request.URINALYSIS W/ REFLEX URINE [id number] 04:33:00 Test Item Value Reference Range Comments COLOR (BEAKER) (test gjta=174) Yellow CLARITY (BEAKER) (test arpa=644) Hazy SPECIFIC GRAVITY UA (BEAKER) (test prso=942) 1.013 1.001-1.035 PH UA (BEAKER) (test dmfq=547) 6.0 5.0-8.0 PROTEIN UA (BEAKER) (test rmql=246) 10 mg/dL Negative GLUCOSE UA (BEAKER) (test qwsi=622) Negative Negative KETONES UA (BEAKER) (test lpjb=478) Trace Negative BILIRUBIN UA (BEAKER) (test piqx=070) Negative Negative BLOOD UA (BEAKER) (test jxqf=324) Negative Negative NITRITE UA (BEAKER) (test rzoz=273) Negative Negative LEUKOCYTE ESTERASE UA (BEAKER) (test jyna=894) Negative Negative UROBILINOGEN UA (BEAKER) (test rroz=031) 0.2 mg/dL 0.2-1.0 RBC UA (BEAKER) (test fcir=232) < /HPF WBC UA (BEAKER) (test qgbc=989) 2 /HPF BACTERIA (BEAKER) (test tosm=514) Rare MUCUS (BEAKER) (test skpx=5903) Rare SQUAMOUS EPITHELIAL (BEAKER) (test fagd=696) 8 /HPF HYALINE CASTS (BEAKER) (test djkb=195) 70 /LPF AMORPHOUS CRYSTALS (BEAKER) (test aasd=7087) Rare SOURCE(BEAKER) (test fofq=2447) BASIC METABOLIC [id number] 02:35:00 Test Item Value Reference Range Comments SODIUM (BEAKER) (test 137 meq/L 136-145 sbnx=793) POTASSIUM (BEAKER) (test 2.9 meq/L 3.5-5.1 oeqx=011) CHLORIDE (BEAKER) (test 109 meq/L 98-107 zaun=555) CO2 (BEAKER) (test 14 meq/L 22-29 jjjr=259) BLOOD UREA NITROGEN 31 mg/dL 7-21 (BEAKER) (test jovz=253) CREATININE (BEAKER) (test 1.98 mg/dL 0.57-1.25 dzph=473) GLUCOSE RANDOM (BEAKER) 146 mg/dL 70-105 (test rlye=134) CALCIUM (BEAKER) (test 8.9 mg/dL 8.4-10.2 xgxk=587) EGFR (BEAKER) (test 27 mL/min/1.73 sq m ESTIMATED GFR IS NOT vecf=0669) ACCURATE CREATININE CLEARANCE IN PREDICTING GLOMERULAR FILTRATION RATE. ESTIMATED GFR IS NOT APPLICABLE FOR DIALYSIS PATIENTS. [id number] 02:35:00 Test Item Value Reference Range Comments MAGNESIUM (BEAKER) (test cvdc=099) 2.0 mg/dL 1.6-2.6 HEPATIC FUNCTION [id number] 02:35:00 Test Item Value Reference Range Comments TOTAL PROTEIN (BEAKER) (test lipz=989) 7.4 gm/dL 6.0-8.3 ALBUMIN (BEAKER) (test ouxy=0487) 3.8 g/dL 3.5-5.0 BILIRUBIN TOTAL (BEAKER) (test gdzm=085) 1.8 mg/dL 0.2-1.2 BILIRUBIN DIRECT (BEAKER) (test vsll=779) 0.9 mg/dL 0.1-0.5 ALKALINE PHOSPHATASE (BEAKER) (test cpus=035) 73 U/L 40-150 AST (SGOT) (BEAKER) (test qupb=552) 38 U/L 5-34 ALT (SGPT) (BEAKER) (test fwic=267) 14 U/L 6-55 BLOOD GAS, [id number] 02:34:00 Test Item Value Reference Range Comments PH VENOUS (BEAKER) (test rkxe=491) 7.42 7.32-7.42 PCO2 VENOUS (BEAKER) (test bmde=955) 28 mmHg 41-51 PO2 VENOUS (BEAKER) (test ictf=139) 34 mmHg 25-40 O2 SATURATION VENOUS (BEAKER) (test ekrl=669) 67.6 % 40.0-70.0 HCO3 VENOUS (BEAKER) (test vfyq=778) 17 mmol/L 21-29 BASE EXCESS VENOUS (BEAKER) (test emve=097) -6.2 mmol/L -2.0-3.0 PATIENT TEMPERATURE (BEAKER) (test mgho=0221) 37.0 C [id number] 02:33:00 Test Item Value Reference Range Comments PHOSPHORUS (BEAKER) (test wyae=097) 3.7 mg/dL 2.3-4.7 [id number] 02:33:00 Test Item Value Reference Range Comments LIPASE (BEAKER) (test vkuo=112) 40 U/L 8-78 CREATINE KINASE (CK), TOTAL AND [id number] 02:30:00 Test Item Value Reference Range Comments CREATINE KINASE TOTAL (BEAKER) (test iwad=500) 30 U/L 29-200 CREATINE KINASE-MB (BEAKER) (test xrqu=732) 0.4 ng/mL 0.0-6.6 CREATINE KINASE-MB INDEX (BEAKER) (test iubj=797) 1.3 % CK-MB Reference Range:<6.7 Normal6.7-10.0 Borderline>10.0 AbnormalTROPONIN [id number] 02:30:00 Test Item Value Reference Range Comments TROPONIN I (BEAKER) (test sohj=232) < ng/mL 0.00-0.03 Troponin I (TnI) levels must be interpreted [...] failure, acidosis, acute neurological disease, and persistent tachyarrhythmia.[id number] 02:19:00 Test Item Value Reference Range Comments ETHANOL (BEAKER) (test menh=423) < mg/dL <=10 [id number] 02:17:00 Test Item Value Reference Range Comments PARTIAL THROMBOPLASTIN TIME (BEAKER) (test 32.8 seconds 22.5-36.0 musz=896) LACTIC ACID, VENOUS, WHOLE [id number] 02:17:00 Test Item Value Reference Range Comments LACTATE BLOOD VENOUS (2) (BEAKER) (test 1.2 mmol/L 0.5-2.2 qact=9359) Effective 12/07/2015: Units/Reference Range ChangeNew: 0.5-2.2 mmol/L Previous: 5 -20 mg/dLPROTHROMBIN [id number] 02:16:00 Test Item Value Reference Range Comments PROTIME (BEAKER) (test jbjz=206) 17.0 seconds 11.7-14.7 INR (BEAKER) (test sasu=314) 1.4 <=5.9 RECOMMENDED COUMADIN/WARFARIN INR THERAPY RANGESSTANDARD DOSE: 2.0 - 3.0 Includes: PROPHYLAXIS forvenous thrombosis, systemic embolization; TREATMENT for venous thrombosis and/or pulmonary embolus.HIGH RISK: Target INR is 2.5-3.5 for patients with mechanical heart valves.[id number] 02:16:00 Test Item Value Reference Range Comments AMMONIA (BEAKER) (test dlmj=294) 75 mol/L 18-72 [id number] 02:16:00 Test Item Value Reference Range Comments FIBRINOGEN LEVEL (BEAKER) (test lequ=480) 372 mg/dl 225-434 CBC W/PLT COUNT & AUTO [id number] 02:10:00 Test Item Value Reference Range Comments WHITE BLOOD CELL COUNT (BEAKER) (test apkm=023) 4.0 K/ L 3.5-10.5 RED BLOOD CELL COUNT (BEAKER) (test gfwi=180) 2.78 M/ L 3.93-5.22 HEMOGLOBIN (BEAKER) (test edjq=490) 8.5 GM/DL 11.2-15.7 HEMATOCRIT (BEAKER) (test gxpa=570) 25.8 % 34.1-44.9 MEAN CORPUSCULAR VOLUME (BEAKER) (test vzdj=307) 92.8 fL 79.4-94.8 MEAN CORPUSCULAR HEMOGLOBIN (BEAKER) (test 30.6 pg 25.6-32.2 lpmm=997) MEAN CORPUSCULAR HEMOGLOBIN CONC (BEAKER) (test 32.9 GM/DL 32.2-35.5 rhht=508) RED CELL DISTRIBUTION WIDTH (BEAKER) (test 18.7 % 11.7-14.4 lden=845) PLATELET COUNT (BEAKER) (test fbmg=548) 110 K/CU MM 150-450 MEAN PLATELET VOLUME (BEAKER) (test kfqh=927) 11.2 fL 9.4-12.3 NUCLEATED RED BLOOD CELLS (BEAKER) (test 0 /100 WBC 0-0 yqiv=834) NEUTROPHILS RELATIVE PERCENT (BEAKER) (test 92 % wjrn=807) LYMPHOCYTES RELATIVE PERCENT (BEAKER) (test 4 % ttoc=939) MONOCYTES RELATIVE PERCENT (BEAKER) (test 3 % toko=330) EOSINOPHILS RELATIVE PERCENT (BEAKER) (test 1 % wnbb=827) BASOPHILS RELATIVE PERCENT (BEAKER) (test 0 % pcnw=712) NEUTROPHILS ABSOLUTE COUNT (BEAKER) (test 3.69 K/ L 1.56-6.13 pvdo=910) LYMPHOCYTES ABSOLUTE COUNT (BEAKER) (test 0.14 K/ L 1.18-3.74 stkr=937) MONOCYTES ABSOLUTE COUNT (BEAKER) (test 0.11 K/ L 0.24-0.36 onoi=672) EOSINOPHILS ABSOLUTE COUNT (BEAKER) (test 0.03 K/ L 0.04-0.36 fghl=655) BASOPHILS ABSOLUTE COUNT (BEAKER) (test 0.01 K/ L 0.01-0.08 kqyf=188) IMMATURE GRANULOCYTES-RELATIVE PERCENT (BEAKER) 1 % 0-1 (test ragy=8710) ANTI-NUCLEAR ANTIBODY (LÓPEZ)2017-11-29 09:50:00 Test Item Value Reference Range Comments ANTI-NUCLEAR ANTIBODY (LÓPEZ) (BEAKER) (test Positive Negative hfqw=736) LÓPEZ TITER AND [id number] 09:50:00 Test Item Value Reference Range Comments LÓPEZ TITER (BEAKER) (test krsh=1379) :40 LÓPEZ PATTERN (BEAKER) (test ehuz=1763) Speckled [id number] 15:34:00 Test Item Value Reference Range Comments FERRITIN (BEAKER) (test oqdt=698) 237 ng/mL 5-275 HEPATITIS B SURFACE [id number] 14:54:00 Test Item Value Reference Range Comments HEPATITIS B SURFACE ANTIBODY (BEAKER) (test < mIU/mL <8.0 xfsh=246) HEPATITIS B SURFACE [id number] 14:49:00 Test Item Value Reference Range Comments HEPATITIS B SURFACE ANTIGEN (2) (BEAKER) (test Nonreactive Nonreactive vfit=2836) HEPATITIS C [id number] 14:49:00 Test Item Value Reference Range Comments HEPATITIS C ANTIBODY (BEAKER) (test wazr=422) Nonreactive Nonreactive ALPHA FETOPROTEIN (AFP), TUMOR [id number] 14:48:00 Test Item Value Reference Range Comments ALPHA-FETOPROTEIN (BEAKER) (test eunn=7217) 4.9 ng/mL <10.0 HEPATITIS B CORE ANTIBODY, [id number] 14:48:00 Test Item Value Reference Range Comments HEPATITIS B CORE TOTAL ANTIBODY (BEAKER) (test Nonreactive Nonreactive hqhe=455) HEPATITIS A ANTIBODY, [id number] 14:48:00 Test Item Value Reference Range Comments HEPATITIS A IGG ANTIBODY (BEAKER) (test Nonreactive Nonreactive tjvh=9433) CBC W/PLT COUNT & AUTO [id number] 14:30:00 Test Item Value Reference Range Comments WHITE BLOOD CELL COUNT (BEAKER) (test euwz=841) 5.2 K/ L 3.5-10.5 RED BLOOD CELL COUNT (BEAKER) (test luuz=907) 2.96 M/ L 3.93-5.22 HEMOGLOBIN (BEAKER) (test svux=027) 9.7 GM/DL 11.2-15.7 HEMATOCRIT (BEAKER) (test vayl=078) 31.0 % 34.1-44.9 MEAN CORPUSCULAR VOLUME (BEAKER) (test dtgt=052) 104.7 fL 79.4-94.8 MEAN CORPUSCULAR HEMOGLOBIN (BEAKER) (test 32.8 pg 25.6-32.2 pdou=029) MEAN CORPUSCULAR HEMOGLOBIN CONC (BEAKER) (test 31.3 GM/DL 32.2-35.5 oxjg=055) RED CELL DISTRIBUTION WIDTH (BEAKER) (test 17.8 % 11.7-14.4 knwk=255) PLATELET COUNT (BEAKER) (test qclj=837) 92 K/CU MM 150-450 MEAN PLATELET VOLUME (BEAKER) (test ykgi=063) 10.3 fL 9.4-12.3 NUCLEATED RED BLOOD CELLS (BEAKER) (test 0 /100 WBC 0-0 ejyo=362) NEUTROPHILS RELATIVE PERCENT (BEAKER) (test 81 % gcfy=894) LYMPHOCYTES RELATIVE PERCENT (BEAKER) (test 6 % tzca=710) MONOCYTES RELATIVE PERCENT (BEAKER) (test 9 % ptst=615) EOSINOPHILS RELATIVE PERCENT (BEAKER) (test 3 % xltc=988) BASOPHILS RELATIVE PERCENT (BEAKER) (test 1 % qnlo=352) NEUTROPHILS ABSOLUTE COUNT (BEAKER) (test 4.23 K/ L 1.56-6.13 owvu=336) LYMPHOCYTES ABSOLUTE COUNT (BEAKER) (test 0.29 K/ L 1.18-3.74 ozis=217) MONOCYTES ABSOLUTE COUNT (BEAKER) (test xnov=732) 0.49 K/ L 0.24-0.36 EOSINOPHILS ABSOLUTE COUNT (BEAKER) (test 0.14 K/ L 0.04-0.36 ufhd=299) BASOPHILS ABSOLUTE COUNT (BEAKER) (test ieyy=361) 0.06 K/ L 0.01-0.08 IMMATURE GRANULOCYTES-RELATIVE PERCENT (BEAKER) 0 % 0-1 (test vkaq=1402) COMPREHENSIVE METABOLIC [id number] 14:28:00 Test Item Value Reference Range Comments TOTAL PROTEIN (BEAKER) 7.6 gm/dL 6.0-8.3 (test stjo=907) ALBUMIN (BEAKER) (test 3.6 g/dL 3.5-5.0 hcih=2260) ALKALINE PHOSPHATASE 144 U/L 40-150 (BEAKER) (test odql=403) BILIRUBIN TOTAL (BEAKER) 1.1 mg/dL 0.2-1.2 (test oibs=702) SODIUM (BEAKER) (test 135 meq/L 136-145 qcow=120) POTASSIUM (BEAKER) (test 3.6 meq/L 3.5-5.1 ehgw=883) CHLORIDE (BEAKER) (test 103 meq/L 98-107 ypsi=966) CO2 (BEAKER) (test 22 meq/L 22-29 olzb=906) BLOOD UREA NITROGEN 16 mg/dL 7-21 (BEAKER) (test fdfl=523) CREATININE (BEAKER) (test 1.82 mg/dL 0.57-1.25 uobd=352) GLUCOSE RANDOM (BEAKER) 102 mg/dL 70-105 (test cdup=588) CALCIUM (BEAKER) (test 9.1 mg/dL 8.4-10.2 ukhf=115) AST (SGOT) (BEAKER) (test 39 U/L 5-34 qpjg=843) ALT (SGPT) (BEAKER) (test 14 U/L 6-55 xmpi=620) EGFR (BEAKER) (test 30 mL/min/1.73 sq m ESTIMATED GFR IS NOT zoku=8931) ACCURATE CREATININE CLEARANCE IN PREDICTING GLOMERULAR FILTRATION RATE. ESTIMATED GFR IS NOT APPLICABLE FOR DIALYSIS PATIENTS. BILIRUBIN, [id number] 14:28:00 Test Item Value Reference Range Comments BILIRUBIN DIRECT (BEAKER) (test urri=559) 0.6 mg/dL 0.1-0.5 IRON, TIBC, % SAT. (WITHOUT FERRITIN)[id number] 14:26:00 Test Item Value Reference Range Comments IRON (BEAKER) (test jqbr=715) 37 ug/dL 40-160 TOTAL IRON BINDING CAPACITY (BEAKER) (test 219 ug/dL 250-450 vnct=622) IRON % SATURATION (2) (BEAKER) (test qsiy=6333) 17 % 20-55 [id number] 14:25:00 Test Item Value Reference Range Comments ALPHA-1 ANTITRYPSIN (BEAKER) (test appz=678) 151.80 mg/dL 90.00-200.00 PROTHROMBIN [id number] 14:03:00 Test Item Value Reference Range Comments PROTIME (BEAKER) (test dzlf=900) 17.2 seconds 11.7-14.7 INR (MEREDITH) (test uplu=741) 1.4 <=5.9 RECOMMENDED COUMADIN/WARFARIN INR THERAPY RANGESSTANDARD DOSE: 2.0 - 3.0 Includes: PROPHYLAXIS forvenous thrombosis, systemic embolization; TREATMENT for venous thrombosis and/or pulmonary embolus.HIGH RISK: Target INR is 2.5-3.5 for patients with mechanical heart valves.
--- NOTE | 2018-03-04 10:37 | ER ---
Nurse's Notes [facility] Name: Amauri Miller Age: 47 yrs Sex: Female : 1970 Arrival Date: 03/04/2018 Time: 09:36 Bed 18 Private MD: Diagnosis: Abdominal Wound Check Presentation: 03/04 09:46 Presenting complaint: Patient states: just need to get my venancio out on my stomach. tw2 Transition of care: patient was not received from another setting of care. Onset of symptoms was March 04, 2018. Risk Assessment: Do you want to hurt yourself or someone else? Patient reports no desire to harm self or others. Initial Sepsis Screen: Does the patient meet any 2 criteria? No. Patient's initial sepsis screen is negative. Does the patient have a suspected source of infection? No. Patient's initial sepsis screen is negative. Care prior to arrival: None. 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 tw2 Historical: - Allergies: 09:54 No Known Allergies; tw2 - Home Meds: 09:54 ciprofloxacin chl 500 mg once dialy for 30 days [Active]; ferrous sulfate 134 mg (27 mg tw2 iron) Oral tab [Active]; folic acid 1 mg Oral tab 1 tab once daily [Active]; furosemide 40 mg Oral tab 1 tab once daily [Active]; lactulose 20 gram/30 mL Oral soln 30 mL 3 times per day [Active]; multivitamin with minerals Oral tab [Active]; nadolol 20 mg Oral tab 1 tab once daily [Active]; omeprazole 20 mg Oral cpDR 2 caps 2 times per day [Active]; potassium chloride 20 mEq Oral TbTQ 1 tab once daily [Active]; rifaximin 550 mg tab Oral 1 tab 2 times per day [Active]; sodium bicarbonate 650 mg Oral tab twice a day [Active]; tramadol 50 mg Oral tab 1 tab every 6 hours [Active]; vitamin b1 [Active]; Vitamin B-6 Oral [Active]; Zofran (as hydrochloride) 4 mg Oral tab 2 tabs for one tab as needed [Active]; - PMHx: 09:54 Anemia; possible htn; Cirrhosis; esophageal varices; Hernia; second one, not repaired; tw2 - Immunization history:: Adult Immunizations. - Social history:: Smoking status: . - Ebola Screening: : Patient denies travel to an Ebola-affected area in the 21 days before illness onset. Screenin:52 Abuse screen: Denies threats or abuse. Nutritional screening: No deficits noted. tw2 Tuberculosis screening: No symptoms or risk factors identified. Fall Risk None identified. Assessment: 09:50 General: Appears in no apparent distress. Behavior is calm, cooperative, appropriate tw2 for age. Pain: Denies pain. Neuro: Level of Consciousness is awake, alert, obeys commands, Oriented to person, place, time, situation. Cardiovascular: Denies chest pain, shortness of breath, Capillary refill < 3 seconds Patient's skin is warm and dry. Respiratory: Airway is patent Respiratory effort is even, unlabored, Respiratory pattern is regular, symmetrical. GI: Abdomen is round. : No signs and/or symptoms were reported regarding the genitourinary system. EENT: No signs and/or symptoms were reported regarding the EENT system. Derm: No signs and/or symptoms reported regarding the dermatologic system. Derm: Reports " a little bit of drainage on the right side of where the venancio are but i have been taking it easy and dressing it daily", minimal bloody drainage noted on dressing. Musculoskeletal: Range of motion: intact in all extremities. 10:40 Reassessment: Patient appears in no apparent distress at this time. No changes from tw2 previously documented assessment. Patient and/or family updated on plan of care and expected duration. Pain level reassessed. Patient is alert, oriented x 3, equal unlabored respirations, skin warm/dry/pink. Vital Signs: 09:46 BP 124 / 93; Pulse 110; Resp 19; Temp 98.1(TE); Pulse Ox 100% on R/A; Pain 0/10; tw2 09:56 Pulse 106; tw2 10:40 BP 116 / 85; Pulse 98; Resp 17; Pulse Ox 100% on R/A; tw2 ED Course: 09:36 Patient arrived in ED. rg4 09:45 Sara Hess RN is Primary Nurse. tw2 09:46 Triage completed. tw2 09:50 Arm band placed on. tw2 09:52 Bed in low position. Call light in reach. Pulse ox on. NIBP on. tw2 09:59 Josh King PA is PHCP. cp 09:59 Josh Guevara MD is Attending Physician. cp 10:28 Noel Henderson MD is Attending Physician. cp 10:40 No provider procedures requiring assistance completed. Patient did not have IV access tw2 during this emergency room visit. Dressings: non-adherent dressing 4X4s X 4; abdomen. Administered Medications: No medications were administered Outcome: 10:36 Discharge ordered by MD. cp 10:41 Discharged to home ambulatory. tw2 10:41 Condition: stable 10:41 Discharge instructions given to patient, Instructed on discharge instructions, follow up and referral plans. Demonstrated understanding of instructions, follow-up care, wound care. 10:41 Patient left the ED. tw2 Signatures: Josh King PA PA cp Sara Hess RN RN tw2 Leigha Mulligan rg4 Corrections: (The following items were deleted from the chart) 09:52 09:50 Derm: Reports " a little bit of drainage on the right side of where the venancio tw2 are but i have been taking it easy and dressing it daily", minimal bloody drainage noted on dressing, venancio in tact tw2
--- NOTE | 2018-03-04 10:37 | EDPHYS ---
Physician Documentation [facility] Name: Amauri Miller Age: 47 yrs Sex: Female : 1970 Arrival Date: 03/04/2018 Time: 09:36 Bed 18 Private MD: ED Physician Noel Henderson HPI: 03/04 10:25 This 47 yrs old Female presents to ER via Ambulatory with complaints of cp Staple Removal. 10:25 The patient has venancio on the abdomen. Previous treatment: The patient was initially cp treated Approximately 2 weeks ago, the care was rendered at [facility], Treatment type: The patient's original treatment included venancio. Sutures/venancio progress: The patient's wound displays purulent drainage, redness at site, wound dehiscence. Patient reports she has not followed up since surgery for wound check. 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 tw2 Historical: - Allergies: 09:54 No Known Allergies; tw2 - Home Meds: 09:54 ciprofloxacin chl 500 mg once dialy for 30 days [Active]; ferrous sulfate 134 mg (27 mg tw2 iron) Oral tab [Active]; folic acid 1 mg Oral tab 1 tab once daily [Active]; furosemide 40 mg Oral tab 1 tab once daily [Active]; lactulose 20 gram/30 mL Oral soln 30 mL 3 times per day [Active]; multivitamin with minerals Oral tab [Active]; nadolol 20 mg Oral tab 1 tab once daily [Active]; omeprazole 20 mg Oral cpDR 2 caps 2 times per day [Active]; potassium chloride 20 mEq Oral TbTQ 1 tab once daily [Active]; rifaximin 550 mg tab Oral 1 tab 2 times per day [Active]; sodium bicarbonate 650 mg Oral tab twice a day [Active]; tramadol 50 mg Oral tab 1 tab every 6 hours [Active]; vitamin b1 [Active]; Vitamin B-6 Oral [Active]; Zofran (as hydrochloride) 4 mg Oral tab 2 tabs for one tab as needed [Active]; - PMHx: 09:54 Anemia; possible htn; Cirrhosis; esophageal varices; Hernia; second one, not repaired; tw2 - Immunization history:: Adult Immunizations. - Social history:: Smoking status: . - Ebola Screening: : Patient denies travel to an Ebola-affected area in the 21 days before illness onset. ROS: 10:27 Skin: Positive for transverse surgical wound mid abdomen. cp 10:27 All other systems are negative. Exam: 10:28 Head/Face: Normocephalic, atraumatic. cp 10:28 Constitutional: The patient appears in no acute distress, alert, awake, non-toxic, well developed. 10:28 Eyes: Periorbital structures: appear normal, Conjunctiva: normal, no exudate, no injection, Lids and lashes: appear normal, bilaterally. 10:28 ENT: External ear(s): are unremarkable, Nose: is normal, Mouth: Lips: moist, Oral mucosa: moist, Posterior pharynx: is normal, airway is patent. 10:28 Chest/axilla: Inspection: normal. 10:28 Cardiovascular: Rate: tachycardic, Rhythm: regular. 10:28 Respiratory: the patient does not display signs of respiratory distress, Respirations: normal, no use of accessory muscles, no retractions, no splinting, no tachypnea. 10:28 Abdomen/GI: Inspection: distension, Bowel sounds: active, all quadrants, Palpation: soft, in all quadrants, nontender, in all quadrants. 10:28 Skin: Wound recheck: Staple laceration closure: mild erythema, moderate dehiscence, moderate drainage. Vital Signs: 09:46 BP 124 / 93; Pulse 110; Resp 19; Temp 98.1(TE); Pulse Ox 100% on R/A; Pain 0/10; tw2 09:56 Pulse 106; tw2 10:40 BP 116 / 85; Pulse 98; Resp 17; Pulse Ox 100% on R/A; tw2 MDM: 09:59 Patient medically screened. cp 10:32 Data reviewed: vital signs, nurses notes, and as a result, I will discharge patient. ED cp course: Patient instructed on need for f/u with surgeon for wound evaluation and removal of venancio. 03/04 10:08 Order name: Staple Remover Setup; Complete Time: 10:08 tw2 03/04 10:22 Order name: Wound dressing: do not remove venancio, redress wound; Complete Time: 10:25 cp Administered Medications: No medications were administered Disposition: 11:00 Chart complete. cp 21:09 Co-signature as Attending Physician, Noel Henderson MD I agree with the assessment and ps1 plan of care. Attestation: The patient's history, exam findings, diagnostics, and a summary of any interventions or procedures was reviewed in detail with Josh AGGARWAL. Disposition: 03/04/18 10:36 Discharged to Home. Impression: Abdominal Wound Check. - Condition is Stable. - Discharge Instructions: Wound Check, Wound Care. - Medication Reconciliation Form, Thank You Letter, Antibiotic Education, Prescription Opioid Use form. - Follow up: Private Physician; When: surgeon who performed hernia repair; Reason: Wound Recheck. - Problem is an ongoing problem. - Symptoms are unchanged. Signatures: Josh King PA PA cp Sara Hess RN RN tw2 Noel Henderson MD MD ps1 Corrections: (The following items were deleted from the chart) 10:41 10:36 03/04/2018 10:36 Discharged to Home. Impression: Abdominal Wound Check. Condition tw2 is Stable. Forms are Medication Reconciliation Form, Thank You Letter, Antibiotic Education, Prescription Opioid Use. Follow up: Private Physician; When: surgeon who performed hernia repair; Reason: Wound Recheck. Problem is an ongoing problem. Symptoms are unchanged. cp
[2018-03-04 10:52] VITALS: TEMP 98.1; O2SAT 100
[2018-03-04 10:53] VITALS: BP 116/85
== END 2018-03-04 10:41 | disposition home or self-care (01) ==
LOC: ER 09:32
DX: Z48.01 Encounter for change or removal of surgical wound dressing (principal)
CPT/HCPCS: 99283

== ENCOUNTER 2018-04-06 14:30 | Observation (INO) | payer MEDICAID ==
--- OUTSIDE RECORDS SUMMARY | 2018-04-06 14:33 | XMS REPORT | Clinical Summary ---
:1970 Author Organization [facility] Address [address] [place] [address] Phone Care Team Providers Name Role Phone [...] test for immunity to [facility]. Portal hypertension (HCC) 11/27/2017 Last Assessment & Plan: Portal hypertension is evidenced by gastric and esophageal varices seen on EGD and CT scan 10/21/17 and splenomegaly. Encounters Date Type Specialty Care Team Description 02/11/2018 Procedure Pass 02/11/2018 Surgery Tamera Mayorga HERNIORRHAPHYCK MD LICWA 02/10/2018 Hospital Encounter General Internal Naresh Alvarado [...] Bleeding MD Kavya 12/06/2017 Documentation Transplant Hepatology Mnoa Newman RN 12/06/2017 Abstract Transplant Hepatology Mona Newman RN 11/28/2017 Abstract Transplant Hepatology Tim Riley MD 11/27/2017 Office Visit Hepatology Ugo Doss MD cirrhosis of liver with ascites (HCC) (Primary Dx);Other ascites;Screening for malignant neoplasm;Immunity status testing;Portal hypertension (HCC) after 04/05/2017 Social History Tobacco Use Types Packs/Day Years [...] Treatment Date Type Specialty Care Team Description 04/18/2018 Office Visit Hepatology JaUgo chiu MD [address] [id number] Resource, [facility] C Health Maintenance Due Date Last Done Comments [...] Gastrointestinal hemorrhage, unspecified gastrointestinal hemorrhage type after 04/05/2017 Results RHYTHM STRIP - SCAN (02/18/2018 10:30 AM)TRANSFUSION SERVICE REPORT - SCAN ( 5:50 PM)Only the most recent of5 resultswithin the time period is included.POC-Glucose meter (02/15/2018 11:14 AM)Only the most recent of17 resultswithin the time period is included. Component Value Ref Range POC-Glucose Meter 119 (H)Comment: TESTED AT [address] 70 - 110 mg/[place] [address] Specimen Performing Laboratory Blood [facility] [address] [address] CBC with platelet count + automated diff [...] - 1 % Specimen Performing Laboratory Blood [address] [address] CBC (Hemogram only) (02/15/2018 5:05 AM)Only the [...] 0 /100 WBC Specimen Performing Laboratory Blood [address] [address] CBC with platelet count + automated diff (02/15/2018 5:05 AM)Only the most recent of9 resultswithin the time period is included. Specimen Performing Laboratory Blood [facility] The following orders were created for panel order CBC with platelet count + automated diff. Procedure Abnormality Status --------- ------ CBC with platelet count ...[[id number]]AbnormalFinal result Please view results for these tests on the individual orders. Phosphorus (02/15/2018 5:05 AM)Only the most recent of6 resultswithin the time period is included. Component Value Ref Range Phosphorus 3.5 2.3 - 4.7 mg/dL Specimen Performing Laboratory Blood [address] [address] Magnesium (02/15/2018 5:05 AM)Only the most recent of6 resultswithin the time period is included. Component Value Ref Range Magnesium 1.7 1.6 - 2.6 mg/dL Specimen Performing Laboratory Blood [address] [address] Hepatic function panel (02/15/2018 5:05 AM)Only the [...] - 55 U/L Specimen Performing Laboratory Blood [address] [address] Basic Metabolic Panel (02/15/2018 5:05 AM)Only the [...] DIALYSIS PATIENTS. Specimen Performing Laboratory Blood [facility] [address] [address] Prepare Leuko-Red RBC (02/14/2018 11:54 PM) Component Value Ref Range CROSSMATCH COMPATIBLE Unit ABO O Pos UNIT NUMBER [id number] Status TRANSFUSED Blood Bank Product RED BLOOD CELLS PRODUCT CODE D0074N32 Specimen Performing Laboratory Other [facility] US paracentesis (02/14/2018 5:06 PM) Specimen Performing Laboratory GE RIS Narrative FINAL REPORT Paracentesis: Performing MD: Bela Rios M.D. Preoperative Diagnosis:Ascites Postoperative Diagnosis: Ascites Construction Driver: none Specimen: As requested Estimated Blood Loss: [...] MD Report Verified Date/Time:02/14/2018 17:34:56 Reading Location: [address] Ultrasound Reading Room Procedure Note Interface, External Ris In - 02/14/2018 5:37 PM CDT FINAL REPORT Paracentesis: Performing MD: Bela Rios M.D. Preoperative Diagnosis:Ascites Postoperative Diagnosis: Ascites Construction Driver: none Specimen: As requested Estimated Blood Loss: [...] Report Verified Date/Time: 02/14/2018 17:34:56 Reading Location: [place] [id number] Ultrasound Reading Room Body fluid culture + gram stain (02/14/2018 5:00 PM) Component Value Ref Range Result No growth Gram Stain Result <1+ WBCs Gram Stain Result No organisms seen Specimen Performing Laboratory Body Fluid - Ascites [address] [address] Body fluid cell count with differential (02/14/2018 5:00 PM) Component Value Ref Range Appearance Bloody (A) Clear Color Red (A) Colorless, Straw RBCs [address] (H) <=1 /cu mm Adjusted WBC Count 206 (H) <=5 /cu mm Lining Cells 4 (H) <=1 /cu mm % Segs 50 % % Lymphs 5 % % Monos 45 % % Eos 0 % % Baso 0 % Container Body Fluid EDTA Tube Specimen Performing Laboratory Body Fluid - Ascites [address] [address] aPTT (02/14/2018 3:12 PM)Only the most recent of2 resultswithin the time period is included. Component Value Ref Range PTT 28.9 22.5 - 36.0 seconds Specimen Performing Laboratory Blood - Central Venous Line [address] [address] Prothrombin time/INR (02/14/2018 3:12 PM)Only the most recent of3 resultswithin the time period is included. Component Value Ref Range Protime 18.3 (H) 11.7 - 14.7 seconds INR 1.5 <=5.9 Specimen Performing Laboratory Blood - Central Venous Line [address] [address] Narrative RECOMMENDED COUMADIN/WARFARIN INR THERAPY RANGES STANDARD [...] Performing Laboratory Blood - Central Venous Line [address] [address] Prepare RBC (02/12/2018 11:54 PM) Component Value Ref Range CROSSMATCH COMPATIBLE Unit ABO O Pos UNIT NUMBER [id number] Status RETURNED FROM ISSUE Blood Bank Product RED BLOOD CELLS PRODUCT CODE T0064X13 CROSSMATCH COMPATIBLE Unit ABO O Pos UNIT NUMBER [id number] Status TRANSFUSED Blood Bank Product RED BLOOD CELLS PRODUCT CODE [id number] Specimen Performing Laboratory [place] [place] HIV-1 Antigen with HIV-1/2 Antibody (02/12/2018 5:29 AM) Component Value Ref Range HIV-1 Antigen with HIV 1&2 Antibody Nonreactive Nonreactive Specimen Performing Laboratory Blood [address] [address] PT/aPTT (02/11/2018 3:47 PM)Only the most recent of2 resultswithin the time period is included. Component Value Ref Range Protime 18.7 (H) 11.7 - 14.7 seconds INR 1.6 <=5.9 PTT 36.5 (H) 22.5 - 36.0 seconds Specimen Performing Laboratory Blood [address] [address] Narrative RECOMMENDED COUMADIN/WARFARIN INR THERAPY RANGES STANDARD DOSE: 2.0 - 3.0 Includes: PROPHYLAXIS for venous thrombosis, systemic embolization; TREATMENT for venous thrombosis and/or pulmonary embolus. HIGH RISK: Target INR is 2.5-3.5 for patients with mechanical heart valves. Tissue Exam (02/11/2018 1:38 PM) Component Value Ref Range Case Report Surgical Pathology Report Case: [id number] Authorizing Provider:Tamera Mayorga MD Collected: 02/11/2018 1338 Ordering Location: [place] [address] ICUReceived: 02/11/2018 1613 Pathologist: Herminia Hope MD Specimen:Hernia Sac, Umbilical DIAGNOSIS SKIN AND HERNIA SAC, EXCISION: - SKIN WITH ULCER, NECROSIS, HERNIA WITH FIBROSIS, ADHESION AND CHRONIC INFLAMMATION Signing Pathologist Direct Phone Line: [phone] CPT Code(s) 43899 CLINICAL HISTORY Incarcerated umbilical hernia SPECIMEN SOURCE [...] Performing Laboratory Tissue - Hernia Sac, Umbilical [address] [address] AFB culture + smear (02/11/2018 1:34 PM) Component Value Ref Range Result No acid-fast bacilli isolated in 42 days AFB Smear No acid fast bacilli seen Specimen Performing Laboratory Wound - Abdomen [address] [address] Anaerobic culture (02/11/2018 1:34 PM) Component Value Ref Range Result No anaerobes isolated Specimen Performing Laboratory Wound - Abdomen [facility] [address] Surgically obtained culture + gram stain (02/11/2018 1:34 PM) Component Value Ref Range Result No growth Gram Stain Result <1+ WBCs Gram Stain Result No organisms seen Specimen Performing Laboratory Wound - Abdomen [address] [address] Fungus culture + smear (02/11/2018 1:34 PM) Component Value Ref Range Result No fungus isolated in 28 days Fungus Smear No fungi seen Specimen Performing Laboratory Wound - Abdomen [address] [address] SPIN/CONCENTRATION CHARGE (02/11/2018 1:34 PM) Component Value Ref Range Concentration charged Done Specimen Performing Laboratory Wound Abdomen [address] [address] Potassium-Stat Lab (02/11/2018 1:21 PM) Component Value Ref Range Potassium 3.9 3.6 - 5.5 meq/L Specimen Performing Laboratory Other [address] [address] Narrative THIS IS A VENOUS SAMPLE THIS IS A VENOUS SAMPLE THIS IS A VENOUS SAMPLE Sodium Na-Stat Lab (02/11/2018 1:21 PM) Component Value Ref Range Sodium 135 135 - 148 meq/L Specimen Performing Laboratory Other [address] [address] Narrative THIS IS A VENOUS SAMPLE THIS IS A VENOUS SAMPLE THIS IS A VENOUS SAMPLE Glucose-Stat Lab (02/11/2018 1:21 PM) Component Value Ref Range Glucose 122 (H) 70 - 110 mg/dL Specimen Performing Laboratory Other [address] [address] Narrative THIS IS A VENOUS SAMPLE THIS IS A VENOUS SAMPLE THIS IS A VENOUS SAMPLE HGB/HCT (H&H)-Stat Lab (02/11/2018 1:21 PM) Component Value Ref Range Hemoglobin 8.7 (L) 12.0 - 15.0 g/dL Hematocrit 26.0 (L) 36.0 - 45.0 % Specimen Performing Laboratory Other [address] [address] Narrative THIS IS A VENOUS SAMPLE Calcium, Ionized (02/11/2018 1:21 PM) Component Value Ref Range Calcium, Ion 1.07 (L) 1.12 - 1.27 mmol/L pH, Blood 7.28 Specimen Performing Laboratory Blood [facility] [address] [address] US abdomen complete (02/11/2018 6:57 AM) Specimen Performing Laboratory GE RIS Narrative FINAL REPORT Abdominal Ultrasound Clinical [...] MD Report Verified Date/Time:02/11/2018 09:32:36 Reading Location: [address] Ultrasound Reading Room Procedure Note Interface, [...] Report Verified Date/Time: 02/11/2018 09:32:36 Reading Location: [address] Ultrasound Reading Room abdomen/pelvis without iv contrast (02/11/2018 12:01 AM) Specimen Performing Laboratory [employer] Narrative FINAL REPORT HISTORY : Hernia, complicated [...] MD Report Verified Date/Time:02/11/2018 07:50:19 Reading Location: [facility] Diagnostic Imaging Reading Room - [place] [address] Procedure Note Interface, External Ris In - [...] Report Verified Date/Time: 02/11/2018 07:50:19 Reading Location: [facility] Diagnostic Imaging Reading Room - [place] [address] Potassium (02/10/2018 9:04 PM)Only the most recent of2 resultswithin the time period is included. Component Value Ref Range Potassium 3.9Comment: Specimen moderately hemolyzed 3.5 - 5.1 meq/L Specimen Performing Laboratory Blood [address] [address] Sodium, random urine (02/10/2018 6:15 PM) Component Value Ref Range Sodium Urine <20 meq/L Specimen Performing Laboratory Urine - Urine, Voided [address] [address] Narrative Reference Range: No Normals Protein, random urine (02/10/2018 6:15 PM) Component Value Ref Range Protein, Urine 19 (H) 0 - 14 mg/dL Specimen Performing Laboratory Urine - Urine, Voided [address] [address] Creatinine, random urine (02/10/2018 6:15 PM) Component Value Ref Range Creatinine, Ur 160.3 mg/dL Specimen Performing Laboratory Urine - Urine, Voided [address] [address] Narrative Reference Range: No Normals Screen, urine (02/10/2018 6:14 PM) Component Value Ref Range Preg Test, Ur Negative Specimen Performing Laboratory Urine - Urine, Void[address] [address] REPORT OF PROCEDURE - ENDOSCOPY URL (02/10/2018 4:35 PM)Urinalysis w/ Microscopic + Reflex to Culture (02/10/2018 4:08 AM) Component Value Ref Range Color, UA Yellow Clarity, UA Hazy Specific [place], UA 1.013 1.001 - 1.035 pH, UA [...] Specimen Performing Laboratory Urine - Urine, Voided [address] [address] Rapid drug screen, urine (02/10/2018 4:08 AM) Component Value Ref Range Barbiturate Screen Negative Negative Benzodiazepine Screen Negative Negative Cocaine (Metab.) Screen Negative Negative Methadone Screen Negative Negative Opiate Screen Negative Negative Cannabinoid Screen Negative Negative Amph/Methamph Screen Negative Negative Phencyclidine Screen Negative Negative Oxycodone Screen Negative Negative Specimen Performing Laboratory Urine - Urine, Voided [address] [address] Narrative DRUGCUTOFF CONC. Cocaine 300 ng/mL Uxjhafgdhmg49 ng/mL Viodtwnmesvyiu467 ng/mL Barbiturate 200 ng/mL Wyirowyvkwwlv49 ng/mL Dcpbrq436 ng/mL Methadone 300 ng/mL Amphetamine/ 1000 ng/mL Methamphetamine Oxycodone 300 ng/mL This assay provides an unconfirmed qualitative test result for the clinical management of patients in emergency situations. Chain of custody not maintained. Some mefp-vjs-gwdfhuq medications, as well as adulterants, may cause [...] 436 ms QTC Calculation(Bazett) 515 ms P Elmer 94 degrees R Elmer 24 degrees T Elmer 27 degrees Normal sinus rhythm Low voltage QRS Septal infarct (cited on or before 10-FEB-2018) Prolonged QT Abnormal ECG When compared with ECG of 10-FEB-2018 02:05, No significant changes Confirmed by MD MCFARLANE YOCHAI ([id number]) on 02/10/2018 6:23:14 AM Procedure Note Interface, External Ris In - 02/10/2018 6:23 AM CDT Ventricular Rate 84 BPM Atrial Rate 84 BPM P-R Interval 138 ms QRS Duration 70 ms Q-T Interval 436 ms QTC Calculation(Bazett) 515 ms P Elmer 94 degrees R Elmer 24 degrees T Elmer 27 degrees Normal sinus rhythm Low voltage QRS Septal infarct (cited on or before 10-FEB-2018) Prolonged QT Abnormal ECG When compared with ECG of 10-FEB-2018 02:05, No significant changes Confirmed by MD MCFARLANE YOCHAI ([id number]) on 02/10/2018 6:23:14 AM Blood culture (02/10/2018 2:01 AM)Only the most recent of2 resultswithin the time period is included. Component Value Ref Range Result No growth in 5 days Specimen Performing Laboratory Blood - Line, Venous [facility] [address] [address] Blood gas, venous (02/10/2018 2:00 AM) Component [...] Performing Laboratory Blood - Central Venous Line [address] [address] Type and screen, automated (02/10/2018 1:54 AM) Component Value Ref Range ABO/RH AUTOMATED (BEAKER) O POSITIVE Ab Scrn NEGATIVE Specimen Performing Laboratory Blood [address] [address] Troponin I (02/10/2018 1:54 AM) Component Value Ref Range Troponin I <0.01 0.00 - 0.03 ng/mL Specimen Performing Laboratory Blood [address] [address] Narrative Troponin I (TnI) levels must be [...] 0.5 - 2.2 mmol/L Specimen Performing Laboratory Blood [address] [address] Narrative Effective 12/07/2015: Units/Reference Range Change New: 0.5-2.2 mmol/LPrevious: 5-20 mg/dL Fibrinogen (02/10/2018 1:54 AM) Component Value Ref Range Fibrinogen 372 225 - 434 mg/dl Specimen Performing Laboratory Blood [address] [address] Lipase (02/10/2018 1:54 AM) Component Value Ref Range Lipase 40 8 - 78 U/L Specimen Performing Laboratory Blood [address] [address] Creatine Kinase (CK), Total and MB (02/10/2018 1:54 AM) Component Value Ref Range Total CK 30 29 - 200 U/L CK-MB 0.4 0.0 - 6.6 ng/mL MB Relative Index 1.3 % Specimen Performing Laboratory Blood [address] [address] Narrative CK-MB Reference Range: <6.7Normal 6.7-10.0Borderline >10.0 Abnormal Ammonia (02/10/2018 1:54 AM) Component Value Ref Range Ammonia 75 (H) 18 - 72 mol/L Specimen Performing Laboratory Blood [address] [address] Ethanol (02/10/2018 1:54 AM) Component Value Ref Range Ethanol Lvl <10 <=10 mg/dL Specimen Performing Laboratory [address] [address] Hepatitis A antibody, IgG (11/27/2017 1:34 PM) Component Value Ref Range Hep A IgG Nonreactive Nonreactive Specimen Performing Laboratory [address] [address] Mitochondrial Antibodies, M2 (11/27/2017 1:34 PM) Component Value Ref Range Mitochondria M2 Ab <20.0 See Note: U Comment: Reference Range: NEGATIVE:< OR=20.0 EQUIVOCAL: 20.1-24.9 POSITIVE:> OR=25.0 Specimen Performing Laboratory Blood [facility] [address] [address] Narrative Performing Lab [facility] [address] [address] I Kamla BULLOCK, PhD, ABIMBOLA Iron, TIBC, % sat. (without ferritin) (11/27/2017 1:34 PM) Component Value Ref Range Iron 37 (L) 40 - 160 ug/dL TIBC 219 (L) 250 - 450 ug/dL Iron % Saturation 17 (L) 20 - 55 % Specimen Performing Laboratory [address] [address] Hepatitis C antibody (11/27/2017 1:34 PM) Component Value Ref Range Hepatitis C Ab Nonreactive Nonreactive Specimen Performing Laboratory [address] [address] Actin (Smooth Muscle) Antibody, IgG (11/27/2017 1:34 [...] Specimen Performing Laboratory Blood [facility] [address] [address] Narrative Performing Lab EZ [facility] [address] [address] Lizette Cason MD, PhD, ABIMBOLA Abtil-5-Bfsmtxkwxml (11/27/2017 1:34 PM) Component Value Ref Range A-1 Antitrypsin 151.80 90.00 - 200.00 mg/dL Specimen Performing Laboratory Blood [address] [address] LÓPEZ Titer & Pattern (11/27/2017 1:34 PM) Component Value Ref Range LÓPEZ Titer 1:40 LÓPEZ Pattern Speckled Specimen Performing Laboratory Blood [address] [address] Ceruloplasmin (11/27/2017 1:34 PM) Component Value Ref Range Ceruloplasmin 25 18 - 53 mg/dL Comment: Adults:Males: 18-36 mg/dL Females: 18-53 mg/dL Pediatrics:Males (mg/dL)Females (mg/dL) 0-30 Days 8-25 3-28 31 Days-11 Month -43 1-3 Cttme79-7409-09 4-6 Tfvbq53-2449-98 7-9 Thxwv06-5304-33 10-12 Qmtjf27-9262-16 13-15 Gypvr84-9551-84 16-18 Dzzlz05-1389-22 The pediatric ranges are derived from the following criteria: Yehuda S[place], Buck MERCHANT, Lorna Don et al Pediatric reference ranges for Dlkn-1-Tggrdtcfsooiz and ceruloplasmin. Clin. Chem 1997; 43:S1999 Pediatric Reference Ranges, 2nd., [place] Yehuda,et al. editors. [employer], [place], [place] 1997. Specimen Performing Laboratory Blood [facility] [address] [place] [address] Narrative Performing Lab *SPL [facility], [address] [place] [address] Florencia Almanzar MD, PhD Alpha fetoprotein (AFP), tumor marker (11/27/2017 1:34 PM) Component Value Ref Range Alpha-Fetoprotein 4.9 <10.0 ng/mL Specimen Performing Laboratory Blood [address] [address] Hepatitis B core antibody, total (11/27/2017 1:34 PM) Component Value Ref Range Hep B Core Total Ab Nonreactive Nonreactive Specimen Performing Laboratory Blood [address] [address] Hepatitis B surface antibody (11/27/2017 1:34 PM) Component Value Ref Range Hep B S Ab <8.0 <8.0 mIU/mL Specimen Performing Laboratory Blood [address] [address] Hepatitis B surface antigen (11/27/2017 1:34 PM) Component Value Ref Range hepatitis B Surface Ag Nonreactive Nonreactive Specimen Performing Laboratory [address] [address] Anti-Nuclear Antibody (LÓPEZ) (11/27/2017 1:34 PM) Component Value Ref Range LÓPEZ Positive (A) Negative Specimen Performing Laboratory [address] [address] Ferritin (11/27/2017 1:34 PM) Component Value Ref Range Ferritin 237 5 - 275 ng/mL Specimen Performing Laboratory [address] [address] Bilirubin, direct (11/27/2017 1:34 PM) Component Value Ref Range Bilirubin, Direct 0.6 (H) 0.1 - 0.5 mg/dL Specimen Performing Laboratory [address] [place] [address] after 04/05/2017
--- OUTSIDE RECORDS SUMMARY | 2018-04-06 14:34 | XMS REPORT ---
:1970 Author Organization [facility] Address [address] [place] [address] [address] [place] [address] Care Team Providers Name Role Phone NICK MCKENZIE Unavailable Unavailable RAMON ARIAS Unavailable Unavailable Problems This patient has no known problems. Allergies, Adverse Reactions, Alerts This patient has no known allergies or adverse reactions. Medications This patient has no known medications. Results Test Description Test Time Test Comments Text Results Atomic Results Result Comments AFB CULTURE + SMEAR 2018-03-31 00:02:00 Test Item Value Reference Range Comments CULTURE (BEAKER) (test axjj=7653) No acid-fast bacilli isolated in 42 days AFB SMEAR (BEAKER) (test opnt=642) No acid fast bacilli seen FUNGUS CULTURE + [id number] 12:57:00 Test Item Value Reference Range Comments CULTURE (BEAKER) (test No fungus isolated in 28 days kuje=9021) FUNGUS SMEAR (BEAKER) (test No fungi seen ocke=9250) BODY FLUID CULTURE + GRAM [id number] 05:31:00 Test Item Value Reference Range Comments CULTURE (BEAKER) (test qsyt=4581) No growth GRAM STAIN RESULT (BEAKER) (test <1+ WBCs xpdi=1150) GRAM STAIN RESULT (BEAKER) (test No organisms seen vczw=09890) ANAEROBIC [id number] 02:42:00 Test Item Value Reference Range Comments CULTURE (BEAKER) (test aquk=1241) No anaerobes isolated POCT-GLUCOSE [id number] 13:58:00 Test Item Value Reference Range Comments POC-GLUCOSE METER (BEAKER) 119 mg/dL 70-110 TESTED AT [facility] [address] [facility] (test roqw=6121) [facility] [address] CBC W/PLT COUNT & AUTO [id number] 09:22:00 Test Item Value Reference Range Comments WHITE BLOOD CELL COUNT (BEAKER) (test jatr=108) 5.1 K/ L 3.5-10.5 RED BLOOD CELL COUNT (BEAKER) (test gsej=882) 2.79 M/ L 3.93-5.22 HEMOGLOBIN (BEAKER) (test wxbt=684) 8.8 GM/DL 11.2-15.7 HEMATOCRIT (BEAKER) (test oeed=657) 27.2 % 34.1-44.9 MEAN CORPUSCULAR VOLUME (BEAKER) (test nokq=358) 97.5 fL 79.4-94.8 MEAN CORPUSCULAR HEMOGLOBIN (BEAKER) (test 31.5 pg 25.6-32.2 xjra=235) MEAN CORPUSCULAR HEMOGLOBIN CONC (BEAKER) (test 32.4 GM/DL 32.2-35.5 rxvz=348) RED CELL DISTRIBUTION WIDTH (BEAKER) (test 18.8 % 11.7-14.4 xgvm=997) PLATELET COUNT (BEAKER) (test lctc=386) 86 K/CU MM 150-450 MEAN PLATELET VOLUME (BEAKER) (test aluo=167) 12.6 fL 9.4-12.3 NUCLEATED RED BLOOD CELLS (BEAKER) (test 0 /100 WBC 0-0 bdrt=920) NEUTROPHILS RELATIVE PERCENT (BEAKER) (test 73 % uycw=211) LYMPHOCYTES RELATIVE PERCENT (BEAKER) (test 7 % kcse=959) MONOCYTES RELATIVE PERCENT (BEAKER) (test 12 % etwz=491) EOSINOPHILS RELATIVE PERCENT (BEAKER) (test 6 % mfrb=998) BASOPHILS RELATIVE PERCENT (BEAKER) (test 1 % rsrb=998) NEUTROPHILS ABSOLUTE COUNT (BEAKER) (test 3.63 K/ L 1.56-6.13 mnnn=304) LYMPHOCYTES ABSOLUTE COUNT (BEAKER) (test 0.36 K/ L 1.18-3.74 gcjj=088) MONOCYTES ABSOLUTE COUNT (BEAKER) (test ixue=281) 0.61 K/ L 0.24-0.36 EOSINOPHILS ABSOLUTE COUNT (BEAKER) (test 0.31 K/ L 0.04-0.36 jprn=514) BASOPHILS ABSOLUTE COUNT (BEAKER) (test gzcd=511) 0.06 K/ L 0.01-0.08 IMMATURE GRANULOCYTES-RELATIVE PERCENT (BEAKER) 0 % 0-1 (test mejc=9693) CBC (HEMOGRAM ONLY)2018-02-15 09:16:00 Test Item Value Reference Range Comments WHITE BLOOD CELL COUNT (BEAKER) (test limn=987) 5.1 K/ L 3.5-10.5 RED BLOOD CELL COUNT (BEAKER) (test dqqa=061) 2.79 M/ L 3.93-5.22 HEMOGLOBIN (BEAKER) (test yunq=909) 8.8 GM/DL 11.2-15.7 HEMATOCRIT (BEAKER) (test kfir=222) 27.2 % 34.1-44.9 MEAN CORPUSCULAR VOLUME (BEAKER) (test fimz=895) 97.5 fL 79.4-94.8 MEAN CORPUSCULAR HEMOGLOBIN (BEAKER) (test 31.5 pg 25.6-32.2 sjgm=253) MEAN CORPUSCULAR HEMOGLOBIN CONC (BEAKER) (test 32.4 GM/DL 32.2-35.5 bimk=063) RED CELL DISTRIBUTION WIDTH (BEAKER) (test 18.8 % 11.7-14.4 uulu=240) PLATELET COUNT (BEAKER) (test fsfd=451) 86 K/CU MM 150-450 MEAN PLATELET VOLUME (BEAKER) (test yfmh=058) 12.6 fL 9.4-12.3 NUCLEATED RED BLOOD CELLS (BEAKER) (test 0 /100 WBC 0-0 figg=062) POCT-GLUCOSE [id number] 08:54:00 Test Item Value Reference Range Comments POC-GLUCOSE METER (BEAKER) 135 mg/dL 70-110 TESTED AT [address] (test zaes=5471) [facility] [address] [id number] 06:41:00 Test Item Value Reference Range Comments PHOSPHORUS (BEAKER) (test epyt=990) 3.5 mg/dL 2.3-4.7 [id number] 06:41:00 Test Item Value Reference Range Comments MAGNESIUM (BEAKER) (test gels=125) 1.7 mg/dL 1.6-2.6 BASIC METABOLIC [id number] 06:41:00 Test Item Value Reference Range Comments SODIUM (BEAKER) (test 136 meq/L 136-145 xbnx=933) POTASSIUM (BEAKER) (test 3.2 meq/L 3.5-5.1 vmtb=091) CHLORIDE (BEAKER) (test 112 meq/L 98-107 yjxh=923) CO2 (BEAKER) (test 14 meq/L 22-29 pkmr=281) BLOOD UREA NITROGEN 14 mg/dL 7-21 (BEAKER) (test sujs=678) CREATININE (BEAKER) (test 0.71 mg/dL 0.57-1.25 avsl=469) GLUCOSE RANDOM (BEAKER) 92 mg/dL 70-105 (test ctsg=068) CALCIUM (BEAKER) (test 8.9 mg/dL 8.4-10.2 bhkz=977) EGFR (BEAKER) (test 88 mL/min/1.73 sq m ESTIMATED GFR IS NOT ipzb=1070) ACCURATE CREATININE CLEARANCE IN PREDICTING GLOMERULAR FILTRATION RATE. ESTIMATED GFR IS NOT APPLICABLE FOR DIALYSIS PATIENTS. HEPATIC FUNCTION [id number] 06:41:00 Test Item Value Reference Range Comments TOTAL PROTEIN (BEAKER) (test zufh=576) 6.3 gm/dL 6.0-8.3 ALBUMIN (BEAKER) (test dyws=7042) 3.9 g/dL 3.5-5.0 BILIRUBIN TOTAL (BEAKER) (test bmzx=731) 1.7 mg/dL 0.2-1.2 BILIRUBIN DIRECT (BEAKER) (test rubn=677) 1.0 mg/dL 0.1-0.5 ALKALINE PHOSPHATASE (BEAKER) (test fsee=075) 126 U/L 40-150 AST (SGOT) (BEAKER) (test oktr=547) 118 U/L 5-34 ALT (SGPT) (BEAKER) (test awgl=588) 56 U/L 6-55 BLOOD [id number] 06:00:00 Test Item Value Reference Range Comments CULTURE (BEAKER) (test cxws=5527) No growth in 5 days BLOOD [id number] 06:00:00 Test Item Value Reference Range Comments CULTURE (BEAKER) (test uyvz=9591) No growth in 5 days POCT-GLUCOSE [id number] 21:33:00 Test Item Value Reference Range Comments POC-GLUCOSE METER (BEAKER) 126 mg/dL 70-110 TESTED AT [place] [address] [address] (test tbsn=6898) [facility] [address] BODY FLUID CELL COUNT WITH [id number] 20:39:00 Test Item Value Reference Range Comments APPEARANCE FLUID (BEAKER) (test chqy=450) Bloody Clear COLOR FLUID (BEAKER) (test lwlm=911) Red Colorless, Straw RBC FLUID (BEAKER) (test ligi=934) [address] /cu mm <=1 ADJUSTED WBC FLUID (BEAKER) (test sdso=7395) 206 /cu mm <=5 LINING CELLS (BEAKER) (test ypqw=6256) 4 /cu mm <=1 NEUTROPHILS FLUID (BEAKER) (test umsv=8233) 50 % LYMPHS FLUID (BEAKER) (test blii=074) 5 % MONO/MACROPHAGE FLUID (BEAKER) (test cixw=328) 45 % EOSINOPHILS FLUID (BEAKER) (test umzq=406) 0 % BASO FLUID (BEAKER) (test kpwe=668) 0 % CONTAINER BODY FLUID (BEAKER) (test lkih=6846) EDTA Tube TISSUE [id number] 18:33:00Surgical Pathology Report Case: [id number] Authorizing Provider: Tamera Mayorga MD Collected: 02/11/2018 1338 Ordering Location: [place] [address] ICU Received: 02/11/2018 1613 Pathologist: Herminia Hope MD Specimen: Hernia Sac, Umbilical SKIN AND HERNIA SAC, EXCISION:- SKIN WITH ULCER, NECROSIS, HERNIA WITH FIBROSIS, ADHESION AND CHRONIC INFLAMMATION Signing Pathologist Direct Phone Line: [phone] umbilical hernia Hernia sac umbilical The specimen is received in a formalin-filled container labeled with the patient's information and labeled "umbilical hernial sac" and consists of hemorrhagic membranous tissue measuring 6 x 3 x 0.2 cm with overlying brown skin measuring 5.5 x 3 x 0.3 cm, submitted in A1 and A2. There are no areas of suspicion. CG/ew PerformedPOCT-GLUCOSE [id number] 18:27:00 Test Item Value Reference Range Comments POC-GLUCOSE METER (BEAKER) 152 mg/dL 70-110 TESTED AT [facility] [address] (test elok=2200) [place] [address] U/S, [id number] 17:34:00Send fluid for cell ct \\T\\ diff, [...] of serosanguineous fluid was removed. Signed: Fish Rios MDReport Verified Date/Time: 02/14/2018 17:34:56 Reading Location: [address] Ultrasound Reading Room [id number] 15:56:00 Test Item Value Reference Range Comments PARTIAL THROMBOPLASTIN TIME (BEAKER) (test 28.9 seconds 22.5-36.0 sogk=143) PROTHROMBIN [id number] 15:55:00 Test Item Value Reference Range Comments PROTIME (BEAKER) (test ruhb=388) 18.3 seconds 11.7-14.7 INR (BEAKER) (test gvxg=232) 1.5 <=5.9 RECOMMENDED COUMADIN/WARFARIN INR THERAPY RANGESSTANDARD DOSE: 2.0 - 3.0 Includes: PROPHYLAXIS forvenous thrombosis, systemic embolization; TREATMENT for venous thrombosis and/or pulmonary embolus.HIGH RISK: Target INR is 2.5-3.5 for patients with mechanical heart valves.CBC W/PLT COUNT & AUTO [id number] 15:49:00 Test Item Value Reference Range Comments WHITE BLOOD CELL COUNT (BEAKER) (test tacr=663) 6.5 K/ L 3.5-10.5 RED BLOOD CELL COUNT (BEAKER) (test wwey=612) 2.69 M/ L 3.93-5.22 HEMOGLOBIN (BEAKER) (test qzag=432) 8.5 GM/DL 11.2-15.7 HEMATOCRIT (BEAKER) (test xcan=998) 25.9 % 34.1-44.9 MEAN CORPUSCULAR VOLUME (BEAKER) (test yvdg=323) 96.3 fL 79.4-94.8 MEAN CORPUSCULAR HEMOGLOBIN (BEAKER) (test 31.6 pg 25.6-32.2 cayd=107) MEAN CORPUSCULAR HEMOGLOBIN CONC (BEAKER) (test 32.8 GM/DL 32.2-35.5 gkbt=192) RED CELL DISTRIBUTION WIDTH (BEAKER) (test 19.0 % 11.7-14.4 rckr=693) PLATELET COUNT (BEAKER) (test luqe=432) 63 K/CU MM 150-450 MEAN PLATELET VOLUME (BEAKER) (test lvnn=601) 11.6 fL 9.4-12.3 NUCLEATED RED BLOOD CELLS (BEAKER) (test 0 /100 WBC 0-0 hkqs=556) NEUTROPHILS RELATIVE PERCENT (BEAKER) (test 82 % rhqa=128) LYMPHOCYTES RELATIVE PERCENT (BEAKER) (test 4 % onbl=970) MONOCYTES RELATIVE PERCENT (BEAKER) (test 9 % hnpg=574) EOSINOPHILS RELATIVE PERCENT (BEAKER) (test 3 % cqmt=489) BASOPHILS RELATIVE PERCENT (BEAKER) (test 1 % cjid=705) NEUTROPHILS ABSOLUTE COUNT (BEAKER) (test 5.30 K/ L 1.56-6.13 ypqd=222) LYMPHOCYTES ABSOLUTE COUNT (BEAKER) (test 0.26 K/ L 1.18-3.74 ioeh=846) MONOCYTES ABSOLUTE COUNT (BEAKER) (test hqog=079) 0.59 K/ L 0.24-0.36 EOSINOPHILS ABSOLUTE COUNT (BEAKER) (test 0.20 K/ L 0.04-0.36 woxj=101) BASOPHILS ABSOLUTE COUNT (BEAKER) (test jczm=087) 0.06 K/ L 0.01-0.08 IMMATURE GRANULOCYTES-RELATIVE PERCENT (BEAKER) 1 % 0-1 (test lmip=9229) POCT-GLUCOSE [id number] 13:10:00 Test Item Value Reference Range Comments POC-GLUCOSE METER (BEAKER) 138 mg/dL 70-110 TESTED AT [facility] [address] [facility] (test sdss=6879) [place] [address] SURGICALLY OBTAINED CULTURE + GRAM [id number] 11:29:00 Test Item Value Reference Range Comments CULTURE (BEAKER) (test ioum=2394) No growth GRAM STAIN RESULT (BEAKER) (test <1+ WBCs iwgg=3263) GRAM STAIN RESULT (BEAKER) (test No organisms seen zskv=98350) CBC W/PLT COUNT & AUTO [id number] 09:31:00 Test Item Value Reference Range Comments WHITE BLOOD CELL COUNT (BEAKER) (test ohwp=143) 5.3 K/ L 3.5-10.5 RED BLOOD CELL COUNT (BEAKER) (test vjuc=344) 2.76 M/ L 3.93-5.22 HEMOGLOBIN (BEAKER) (test wygc=763) 8.5 GM/DL 11.2-15.7 HEMATOCRIT (BEAKER) (test wtau=780) 26.7 % 34.1-44.9 MEAN CORPUSCULAR VOLUME (BEAKER) (test ukub=678) 96.7 fL 79.4-94.8 MEAN CORPUSCULAR HEMOGLOBIN (BEAKER) (test 30.8 pg 25.6-32.2 algd=712) MEAN CORPUSCULAR HEMOGLOBIN CONC (BEAKER) (test 31.8 GM/DL 32.2-35.5 nsrt=152) RED CELL DISTRIBUTION WIDTH (BEAKER) (test 19.1 % 11.7-14.4 heie=332) PLATELET COUNT (BEAKER) (test vhej=203) 82 K/CU MM 150-450 MEAN PLATELET VOLUME (BEAKER) (test ryyy=640) 11.5 fL 9.4-12.3 NUCLEATED RED BLOOD CELLS (BEAKER) (test 0 /100 WBC 0-0 jkkg=943) NEUTROPHILS RELATIVE PERCENT (BEAKER) (test 79 % jeda=940) LYMPHOCYTES RELATIVE PERCENT (BEAKER) (test 6 % qkqw=843) MONOCYTES RELATIVE PERCENT (BEAKER) (test 10 % siew=090) EOSINOPHILS RELATIVE PERCENT (BEAKER) (test 3 % obtb=058) BASOPHILS RELATIVE PERCENT (BEAKER) (test 1 % hmlx=933) NEUTROPHILS ABSOLUTE COUNT (BEAKER) (test 4.21 K/ L 1.56-6.13 wioe=003) LYMPHOCYTES ABSOLUTE COUNT (BEAKER) (test 0.33 K/ L 1.18-3.74 lscr=704) MONOCYTES ABSOLUTE COUNT (BEAKER) (test ocgc=700) 0.55 K/ L 0.24-0.36 EOSINOPHILS ABSOLUTE COUNT (BEAKER) (test 0.17 K/ L 0.04-0.36 uumc=820) BASOPHILS ABSOLUTE COUNT (BEAKER) (test pnne=769) 0.05 K/ L 0.01-0.08 IMMATURE GRANULOCYTES-RELATIVE PERCENT (BEAKER) 1 % 0-1 (test lbpc=2236) POCT-GLUCOSE [id number] 08:00:00 Test Item Value Reference Range Comments POC-GLUCOSE METER (BEAKER) 100 mg/dL 70-110 TESTED AT [facility] [address] [facility] (test creq=2823) [facility] [address] [id number] 07:25:00 Test Item Value Reference Range Comments PHOSPHORUS (BEAKER) (test pdry=559) 3.0 mg/dL 2.3-4.7 [id number] 07:25:00 Test Item Value Reference Range Comments MAGNESIUM (BEAKER) (test jhxr=282) 2.0 mg/dL 1.6-2.6 HEPATIC FUNCTION [id number] 07:25:00 Test Item Value Reference Range Comments TOTAL PROTEIN (BEAKER) (test xmwk=693) 6.5 gm/dL 6.0-8.3 ALBUMIN (BEAKER) (test qbsh=8640) 4.2 g/dL 3.5-5.0 BILIRUBIN TOTAL (BEAKER) (test qxju=986) 1.7 mg/dL 0.2-1.2 BILIRUBIN DIRECT (BEAKER) (test tlvk=977) 1.1 mg/dL 0.1-0.5 ALKALINE PHOSPHATASE (BEAKER) (test nsui=607) 140 U/L 40-150 AST (SGOT) (BEAKER) (test idxc=452) 182 U/L 5-34 ALT (SGPT) (BEAKER) (test eoza=030) 58 U/L 6-55 POCT-GLUCOSE [id number] 23:06:00 Test Item Value Reference Range Comments POC-GLUCOSE METER (BEAKER) 106 mg/dL 70-110 TESTED AT [address] (test iedh=0556) [facility] [address] POCT-GLUCOSE [id number] 17:34:00 Test Item Value Reference Range Comments POC-GLUCOSE METER (BEAKER) 149 mg/dL 70-110 TESTED AT [address] (test jtqw=2979) [facility] [address] POCT-GLUCOSE [id number] 11:39:00 Test Item Value Reference Range Comments POC-GLUCOSE METER (BEAKER) 117 mg/dL 70-110 TESTED AT [address] (test bkdv=8309) [facility] [address] POCT-GLUCOSE [id number] 08:13:00 Test Item Value Reference Range Comments POC-GLUCOSE METER (BEAKER) 126 mg/dL 70-110 TESTED AT [address] (test efdd=5292) [facility] [address] [id number] 06:41:00 Test Item Value Reference Range Comments PHOSPHORUS (BEAKER) (test hhkw=840) 2.1 mg/dL 2.3-4.7 [id number] 06:41:00 Test Item Value Reference Range Comments MAGNESIUM (BEAKER) (test hxwk=533) 2.1 mg/dL 1.6-2.6 HEPATIC FUNCTION [id number] 06:41:00 Test Item Value Reference Range Comments TOTAL PROTEIN (BEAKER) (test msax=616) 6.6 gm/dL 6.0-8.3 ALBUMIN (BEAKER) (test odsp=8822) 4.5 g/dL 3.5-5.0 BILIRUBIN TOTAL (BEAKER) (test lztk=802) 1.0 mg/dL 0.2-1.2 BILIRUBIN DIRECT (BEAKER) (test pffn=405) 0.6 mg/dL 0.1-0.5 ALKALINE PHOSPHATASE (BEAKER) (test plua=537) 56 U/L 40-150 AST (SGOT) (BEAKER) (test ikin=537) 51 U/L 5-34 ALT (SGPT) (BEAKER) (test dlet=958) 17 U/L 6-55 COMPREHENSIVE METABOLIC [id number] 06:41:00 Test Item Value Reference Range Comments TOTAL PROTEIN (BEAKER) 6.6 gm/dL 6.0-8.3 (test wzcu=702) ALBUMIN (BEAKER) (test 4.5 g/dL 3.5-5.0 bkpq=2146) ALKALINE PHOSPHATASE 56 U/L 40-150 (BEAKER) (test mtcc=734) BILIRUBIN TOTAL (BEAKER) 1.0 mg/dL 0.2-1.2 (test jbef=487) SODIUM (BEAKER) (test 138 meq/L 136-145 ldlo=360) POTASSIUM (BEAKER) (test 3.3 meq/L 3.5-5.1 ujuk=717) CHLORIDE (BEAKER) (test 114 meq/L 98-107 eary=331) CO2 (BEAKER) (test 15 meq/L 22-29 yiuw=914) BLOOD UREA NITROGEN 15 mg/dL 7-21 (BEAKER) (test vvzl=516) CREATININE (BEAKER) (test 0.83 mg/dL 0.57-1.25 otys=682) GLUCOSE RANDOM (BEAKER) 108 mg/dL 70-105 (test yflx=259) CALCIUM (BEAKER) (test 9.0 mg/dL 8.4-10.2 rmqz=466) AST (SGOT) (BEAKER) (test 51 U/L 5-34 hvst=571) ALT (SGPT) (BEAKER) (test 17 U/L 6-55 fjwx=509) EGFR (BEAKER) (test 73 mL/min/1.73 sq m ESTIMATED GFR IS NOT zwnb=2168) ACCURATE CREATININE CLEARANCE IN PREDICTING GLOMERULAR FILTRATION RATE. ESTIMATED GFR IS NOT APPLICABLE FOR DIALYSIS PATIENTS. CBC W/PLT COUNT & AUTO [id number] 06:25:00 Test Item Value Reference Range Comments WHITE BLOOD CELL COUNT (BEAKER) (test rqbw=301) 6.7 K/ L 3.5-10.5 RED BLOOD CELL COUNT (BEAKER) (test eiym=711) 2.17 M/ L 3.93-5.22 HEMOGLOBIN (BEAKER) (test uigw=844) 6.8 GM/DL 11.2-15.7 HEMATOCRIT (BEAKER) (test ybgg=443) 21.8 % 34.1-44.9 MEAN CORPUSCULAR VOLUME (BEAKER) (test uzgk=191) 100.5 fL 79.4-94.8 MEAN CORPUSCULAR HEMOGLOBIN (BEAKER) (test 31.3 pg 25.6-32.2 bqxy=019) MEAN CORPUSCULAR HEMOGLOBIN CONC (BEAKER) (test 31.2 GM/DL 32.2-35.5 zzvj=155) RED CELL DISTRIBUTION WIDTH (BEAKER) (test 19.9 % 11.7-14.4 iecd=428) PLATELET COUNT (BEAKER) (test mteu=469) 84 K/CU MM 150-450 MEAN PLATELET VOLUME (BEAKER) (test whvh=999) 11.1 fL 9.4-12.3 NUCLEATED RED BLOOD CELLS (BEAKER) (test 0 /100 WBC 0-0 vtce=239) NEUTROPHILS RELATIVE PERCENT (BEAKER) (test 84 % yeso=550) LYMPHOCYTES RELATIVE PERCENT (BEAKER) (test 4 % gcdy=245) MONOCYTES RELATIVE PERCENT (BEAKER) (test 12 % rjzm=369) EOSINOPHILS RELATIVE PERCENT (BEAKER) (test 0 % pczm=700) BASOPHILS RELATIVE PERCENT (BEAKER) (test 0 % kmjv=635) NEUTROPHILS ABSOLUTE COUNT (BEAKER) (test 5.59 K/ L 1.56-6.13 hwka=544) LYMPHOCYTES ABSOLUTE COUNT (BEAKER) (test 0.25 K/ L 1.18-3.74 wgvk=628) MONOCYTES ABSOLUTE COUNT (BEAKER) (test mxto=863) 0.77 K/ L 0.24-0.36 EOSINOPHILS ABSOLUTE COUNT (BEAKER) (test 0.02 K/ L 0.04-0.36 vkka=360) BASOPHILS ABSOLUTE COUNT (BEAKER) (test styx=787) 0.00 K/ L 0.01-0.08 IMMATURE GRANULOCYTES-RELATIVE PERCENT (BEAKER) 1 % 0-1 (test rfhp=8148) SPIN/CONCENTRATION [id number] 15:23:00 Test Item Value Reference Range Comments CONCENTRATION CHARGED (BEAKER) (test vewc=9442) Done POCT-GLUCOSE [id number] 08:15:00 Test Item Value Reference Range Comments POC-GLUCOSE METER (BEAKER) 147 mg/dL 70-110 TESTED AT [facility] [address] [facility] (test hmsh=0934) [facility] [address] HIV-1 ANTIGEN WITH HIV-1/2 [id number] 06:57:00 Test Item Value Reference Range Comments HIV-1 ANTIGEN WITH HIV 1\\T\\2 ANTIBODY (2) Nonreactive Nonreactive (BEAKER) (test yujb=7023) [id number] 06:35:00 Test Item Value Reference Range Comments PHOSPHORUS (BEAKER) (test nyow=723) 2.8 mg/dL 2.3-4.7 [id number] 06:35:00 Test Item Value Reference Range Comments MAGNESIUM (BEAKER) (test eava=732) 1.9 mg/dL 1.6-2.6 BASIC METABOLIC [id number] 06:35:00 Test Item Value Reference Range Comments SODIUM (BEAKER) (test 133 meq/L 136-145 akcy=402) POTASSIUM (BEAKER) (test 3.9 meq/L 3.5-5.1 fokk=511) CHLORIDE (BEAKER) (test 111 meq/L 98-107 tncc=766) CO2 (BEAKER) (test 13 meq/L 22-29 uzdf=209) BLOOD UREA NITROGEN 18 mg/dL 7-21 (BEAKER) (test jaek=089) CREATININE (BEAKER) (test 0.86 mg/dL 0.57-1.25 xkyq=394) GLUCOSE RANDOM (BEAKER) 142 mg/dL 70-105 (test zsgd=636) CALCIUM (BEAKER) (test 8.7 mg/dL 8.4-10.2 hdvp=761) EGFR (BEAKER) (test 70 mL/min/1.73 sq m ESTIMATED GFR IS NOT vyrv=1599) ACCURATE CREATININE CLEARANCE IN PREDICTING GLOMERULAR FILTRATION RATE. ESTIMATED GFR IS NOT APPLICABLE FOR DIALYSIS PATIENTS. HEPATIC FUNCTION [id number] 06:35:00 Test Item Value Reference Range Comments TOTAL PROTEIN (BEAKER) (test wdwz=502) 6.4 gm/dL 6.0-8.3 ALBUMIN (BEAKER) (test gxds=1875) 4.0 g/dL 3.5-5.0 BILIRUBIN TOTAL (BEAKER) (test qyfr=675) 1.5 mg/dL 0.2-1.2 BILIRUBIN DIRECT (BEAKER) (test xjrv=658) 0.9 mg/dL 0.1-0.5 ALKALINE PHOSPHATASE (BEAKER) (test nwes=877) 46 U/L 40-150 AST (SGOT) (BEAKER) (test xhxu=874) 32 U/L 5-34 ALT (SGPT) (BEAKER) (test wlkd=282) 12 U/L 6-55 CBC W/PLT COUNT & AUTO [id number] 06:26:00 Test Item Value Reference Range Comments WHITE BLOOD CELL COUNT (BEAKER) (test nkdt=169) 6.4 K/ L 3.5-10.5 RED BLOOD CELL COUNT (BEAKER) (test cdmg=981) 2.47 M/ L 3.93-5.22 HEMOGLOBIN (BEAKER) (test hiov=921) 7.5 GM/DL 11.2-15.7 HEMATOCRIT (BEAKER) (test ymll=336) 24.3 % 34.1-44.9 MEAN CORPUSCULAR VOLUME (BEAKER) (test xwlt=078) 98.4 fL 79.4-94.8 MEAN CORPUSCULAR HEMOGLOBIN (BEAKER) (test 30.4 pg 25.6-32.2 fkvr=356) MEAN CORPUSCULAR HEMOGLOBIN CONC (BEAKER) (test 30.9 GM/DL 32.2-35.5 hiwi=406) RED CELL DISTRIBUTION WIDTH (BEAKER) (test 20.0 % 11.7-14.4 nbww=792) PLATELET COUNT (BEAKER) (test iznl=448) 85 K/CU MM 150-450 MEAN PLATELET VOLUME (BEAKER) (test xetc=638) 11.3 fL 9.4-12.3 NUCLEATED RED BLOOD CELLS (BEAKER) (test 0 /100 WBC 0-0 jrbx=725) NEUTROPHILS RELATIVE PERCENT (BEAKER) (test 92 % ghgg=972) LYMPHOCYTES RELATIVE PERCENT (BEAKER) (test 3 % jmsj=727) MONOCYTES RELATIVE PERCENT (BEAKER) (test 5 % clwa=133) EOSINOPHILS RELATIVE PERCENT (BEAKER) (test 0 % rpwx=659) BASOPHILS RELATIVE PERCENT (BEAKER) (test 0 % zlac=134) NEUTROPHILS ABSOLUTE COUNT (BEAKER) (test 5.89 K/ L 1.56-6.13 rcdf=102) LYMPHOCYTES ABSOLUTE COUNT (BEAKER) (test 0.19 K/ L 1.18-3.74 ulhe=096) MONOCYTES ABSOLUTE COUNT (BEAKER) (test nzdq=326) 0.31 K/ L 0.24-0.36 EOSINOPHILS ABSOLUTE COUNT (BEAKER) (test 0.00 K/ L 0.04-0.36 szqz=589) BASOPHILS ABSOLUTE COUNT (BEAKER) (test qwaf=180) 0.00 K/ L 0.01-0.08 IMMATURE GRANULOCYTES-RELATIVE PERCENT (BEAKER) 1 % 0-1 (test tjho=6464) POCT-GLUCOSE [id number] 00:47:00 Test Item Value Reference Range Comments POC-GLUCOSE METER (BEAKER) 220 mg/dL 70-110 TESTED AT [facility] [address] [facility] (test bmhi=5226) [facility] [id number] [id number] 19:57:00 Test Item Value Reference Range Comments PHOSPHORUS (BEAKER) (test jhcc=523) 2.9 mg/dL 2.3-4.7 [id number] 19:57:00 Test Item Value Reference Range Comments MAGNESIUM (BEAKER) (test ongh=126) 1.7 mg/dL 1.6-2.6 [id number] 16:27:00 Test Item Value Reference Range Comments PROTIME (BEAKER) (test dtit=865) 18.7 seconds 11.7-14.7 INR (BEAKER) (test evpt=942) 1.6 <=5.9 PARTIAL THROMBOPLASTIN TIME (BEAKER) (test 36.5 seconds 22.5-36.0 lbsr=491) RECOMMENDED COUMADIN/WARFARIN INR THERAPY RANGESSTANDARD DOSE: 2.0 - 3.0 Includes: PROPHYLAXIS forvenous thrombosis, systemic embolization; TREATMENT for venous thrombosis and/or pulmonary embolus.HIGH RISK: Target INR is 2.5-3.5 for patients with mechanical heart valves.BASIC METABOLIC [id number] 16:24: 00 Test Item Value Reference Range Comments SODIUM (BEAKER) (test 136 meq/L 136-145 lmgb=302) POTASSIUM (BEAKER) (test 3.7 meq/L 3.5-5.1 yesc=542) CHLORIDE (BEAKER) (test 113 meq/L 98-107 cype=776) CO2 (BEAKER) (test 16 meq/L 22-29 qufg=808) BLOOD UREA NITROGEN 20 mg/dL 7-21 (BEAKER) (test pzyv=256) CREATININE (BEAKER) (test 1.03 mg/dL 0.57-1.25 jpil=308) GLUCOSE RANDOM (BEAKER) 133 mg/dL 70-105 (test mvym=688) CALCIUM (BEAKER) (test 8.2 mg/dL 8.4-10.2 blcu=434) EGFR (BEAKER) (test 57 mL/min/1.73 sq m ESTIMATED GFR IS NOT nito=7587) ACCURATE CREATININE CLEARANCE IN PREDICTING GLOMERULAR FILTRATION RATE. ESTIMATED GFR IS NOT APPLICABLE FOR DIALYSIS PATIENTS. CBC W/PLT COUNT & AUTO [id number] 16:00:00 Test Item Value Reference Range Comments WHITE BLOOD CELL COUNT (BEAKER) (test lhjw=663) 4.6 K/ L 3.5-10.5 RED BLOOD CELL COUNT (BEAKER) (test vvpk=793) 2.57 M/ L 3.93-5.22 HEMOGLOBIN (BEAKER) (test mbwt=414) 7.9 GM/DL 11.2-15.7 HEMATOCRIT (BEAKER) (test hnua=462) 24.9 % 34.1-44.9 MEAN CORPUSCULAR VOLUME (BEAKER) (test pfyj=696) 96.9 fL 79.4-94.8 MEAN CORPUSCULAR HEMOGLOBIN (BEAKER) (test 30.7 pg 25.6-32.2 hexd=970) MEAN CORPUSCULAR HEMOGLOBIN CONC (BEAKER) (test 31.7 GM/DL 32.2-35.5 mpap=423) RED CELL DISTRIBUTION WIDTH (BEAKER) (test 20.0 % 11.7-14.4 wkxx=891) PLATELET COUNT (BEAKER) (test sbov=622) 101 K/CU MM 150-450 MEAN PLATELET VOLUME (BEAKER) (test caqd=595) 10.5 fL 9.4-12.3 NUCLEATED RED BLOOD CELLS (BEAKER) (test 0 /100 WBC 0-0 xsoz=780) NEUTROPHILS RELATIVE PERCENT (BEAKER) (test 94 % aait=239) LYMPHOCYTES RELATIVE PERCENT (BEAKER) (test 3 % otmc=319) MONOCYTES RELATIVE PERCENT (BEAKER) (test 2 % ymlb=489) EOSINOPHILS RELATIVE PERCENT (BEAKER) (test 1 % rrsn=229) BASOPHILS RELATIVE PERCENT (BEAKER) (test 1 % ljtt=322) NEUTROPHILS ABSOLUTE COUNT (BEAKER) (test 4.31 K/ L 1.56-6.13 enif=040) LYMPHOCYTES ABSOLUTE COUNT (BEAKER) (test 0.12 K/ L 1.18-3.74 ggmh=435) MONOCYTES ABSOLUTE COUNT (BEAKER) (test 0.10 K/ L 0.24-0.36 nauh=509) EOSINOPHILS ABSOLUTE COUNT (BEAKER) (test 0.03 K/ L 0.04-0.36 epko=205) BASOPHILS ABSOLUTE COUNT (BEAKER) (test 0.03 K/ L 0.01-0.08 sheh=436) IMMATURE GRANULOCYTES-RELATIVE PERCENT (BEAKER) 0 % 0-1 (test wkev=1431) HGB/HCT (H&H) - STAT [id number] 13:33:00 Test Item Value Reference Range Comments HEMOGLOBIN (BEAKER) (test unqo=032) 8.7 g/dL 12.0-15.0 HEMATOCRIT (BEAKER) (test eagp=005) 26.0 % 36.0-45.0 THIS IS A VENOUS SAMPLECALCIUM, [id number] 13:33:00 Test Item Value Reference Range Comments CALCIUM IONIZED (BEAKER) (test qfze=871) 1.07 mmol/L 1.12-1.27 PH, BLOOD (BEAKER) (test nvjp=5657) 7.28 GLUCOSE-STAT [id number] 13:33:00 Test Item Value Reference Range Comments GLUCOSE RANDOM (BEAKER) (test emrf=497) 122 mg/dL 70-110 THIS IS A VENOUS SAMPLETHIS IS A VENOUS SAMPLETHIS IS A VENOUS SAMPLESODIUM NA- STAT [id number] 13:32:00 Test Item Value Reference Range Comments SODIUM (BEAKER) (test ucfe=111) 135 meq/L 135-148 THIS IS A VENOUS SAMPLETHIS IS A VENOUS SAMPLETHIS IS A VENOUS SAMPLEPOTASSIUM- STAT [id number] 13:32:00 Test Item Value Reference Range Comments POTASSIUM (BEAKER) (test mlfe=374) 3.9 meq/L 3.6-5.5 THIS IS A VENOUS SAMPLETHIS IS A VENOUS SAMPLETHIS IS A VENOUS SAMPLEU/S, ABDOMINAL, [id number] 09:32:00Reason for exam:->ascites, acute renal failure, hydronephrosisShould [...] presumed secondary to hypoproteinemia. Signed: Fish Rios Verified Date/Time: 02/11/2018 09:32:36 Reading Location: [address] Ultrasound Reading Room Electronically signed by: FISH RIOS M.D. on 05/2018 09:32 AMPOCT-GLUCOSE [id number] 08:05:00 Test Item Value Reference Range Comments POC-GLUCOSE METER (BEAKER) 117 mg/dL 70-110 TESTED AT [facility] [address] [place] [address] (test zooo=9635) [facility] [address] COMPREHENSIVE METABOLIC [id number] 07:53:00 Test Item Value Reference Range Comments TOTAL PROTEIN (BEAKER) 6.1 gm/dL 6.0-8.3 (test hxlz=978) ALBUMIN (BEAKER) (test 3.2 g/dL 3.5-5.0 arqg=4394) ALKALINE PHOSPHATASE 58 U/L 40-150 (BEAKER) (test tttc=524) BILIRUBIN TOTAL (BEAKER) 1.6 mg/dL 0.2-1.2 (test gfgd=222) SODIUM (BEAKER) (test 135 meq/L 136-145 gjov=081) POTASSIUM (BEAKER) (test 3.5 meq/L 3.5-5.1 mios=285) CHLORIDE (BEAKER) (test 111 meq/L 98-107 pqai=649) CO2 (BEAKER) (test 17 meq/L 22-29 lsua=163) BLOOD UREA NITROGEN 25 mg/dL 7-21 (BEAKER) (test cfrt=039) CREATININE (BEAKER) (test 1.29 mg/dL 0.57-1.25 rmrr=810) GLUCOSE RANDOM (BEAKER) 110 mg/dL 70-105 (test ymqj=372) CALCIUM (BEAKER) (test 8.5 mg/dL 8.4-10.2 pykj=931) AST (SGOT) (BEAKER) (test 39 U/L 5-34 bqqw=544) ALT (SGPT) (BEAKER) (test 13 U/L 6-55 jnfg=393) EGFR (BEAKER) (test 44 mL/min/1.73 sq m ESTIMATED GFR IS NOT rmjf=0099) ACCURATE CREATININE CLEARANCE IN PREDICTING GLOMERULAR FILTRATION RATE. ESTIMATED GFR IS NOT APPLICABLE FOR DIALYSIS PATIENTS. CT, [id number] 07:50:00FINAL REPORT HISTORY : Hernia, complicated Technique: [...] Verified Date/ Time: 02/11/2018 07:50:19 Reading Location: [facility] Diagnostic Imaging Reading Room - [place] [address] Electronically signed by: JESSE HATHAWAY M.D. on 2017 07:50 [id number] 07:06:00 Test Item Value Reference Range Comments PROTIME (BEAKER) (test tvcb=190) 17.3 seconds 11.7-14.7 INR (BEAKER) (test qyal=037) 1.4 <=5.9 PARTIAL THROMBOPLASTIN TIME (BEAKER) (test 34.7 seconds 22.5-36.0 lzqc=276) RECOMMENDED COUMADIN/WARFARIN INR THERAPY RANGESSTANDARD DOSE: 2.0 - 3.0 Includes: PROPHYLAXIS forvenous thrombosis, systemic embolization; TREATMENT for venous thrombosis and/or pulmonary embolus.HIGH RISK: Target INR is 2.5-3.5 for patients with mechanical heart valves.CBC W/PLT COUNT & AUTO [id number] 06:22:00 Test Item Value Reference Range Comments WHITE BLOOD CELL COUNT (BEAKER) (test rgdg=806) 4.1 K/ L 3.5-10.5 RED BLOOD CELL COUNT (BEAKER) (test jkvo=436) 2.36 M/ L 3.93-5.22 HEMOGLOBIN (BEAKER) (test nmct=410) 7.5 GM/DL 11.2-15.7 HEMATOCRIT (BEAKER) (test zzek=610) 22.9 % 34.1-44.9 MEAN CORPUSCULAR VOLUME (BEAKER) (test jiuh=601) 97.0 fL 79.4-94.8 MEAN CORPUSCULAR HEMOGLOBIN (BEAKER) (test 31.8 pg 25.6-32.2 wrlh=638) MEAN CORPUSCULAR HEMOGLOBIN CONC (BEAKER) (test 32.8 GM/DL 32.2-35.5 eort=877) RED CELL DISTRIBUTION WIDTH (BEAKER) (test 21.1 % 11.7-14.4 uydj=546) PLATELET COUNT (BEAKER) (test ixls=805) 131 K/CU MM 150-450 MEAN PLATELET VOLUME (BEAKER) (test gvph=230) 11.0 fL 9.4-12.3 NUCLEATED RED BLOOD CELLS (BEAKER) (test 0 /100 WBC 0-0 upzr=868) NEUTROPHILS RELATIVE PERCENT (BEAKER) (test 69 % fnig=832) LYMPHOCYTES RELATIVE PERCENT (BEAKER) (test 11 % mtql=877) MONOCYTES RELATIVE PERCENT (BEAKER) (test 15 % krwz=404) EOSINOPHILS RELATIVE PERCENT (BEAKER) (test 4 % oozu=934) BASOPHILS RELATIVE PERCENT (BEAKER) (test 1 % keer=775) NEUTROPHILS ABSOLUTE COUNT (BEAKER) (test 2.82 K/ L 1.56-6.13 ffkk=225) LYMPHOCYTES ABSOLUTE COUNT (BEAKER) (test 0.43 K/ L 1.18-3.74 odbl=547) MONOCYTES ABSOLUTE COUNT (BEAKER) (test 0.60 K/ L 0.24-0.36 cfya=980) EOSINOPHILS ABSOLUTE COUNT (BEAKER) (test 0.17 K/ L 0.04-0.36 nxrs=739) BASOPHILS ABSOLUTE COUNT (BEAKER) (test 0.03 K/ L 0.01-0.08 zlds=508) IMMATURE GRANULOCYTES-RELATIVE PERCENT (BEAKER) 1 % 0-1 (test ebuj=3668) POCT-GLUCOSE [id number] 00:49:00 Test Item Value Reference Range Comments POC-GLUCOSE METER (BEAKER) 95 mg/dL 70-110 TESTED AT [address] (test farn=6727) [place] [address] [id number] 21:49:00 Test Item Value Reference Range Comments POTASSIUM (BEAKER) (test 3.9 meq/L 3.5-5.1 Specimen moderately hemolyzed exvh=760) SODIUM, RANDOM [id number] 19:06:00 Test Item Value Reference Range Comments SODIUM URINE (BEAKER) (test tyol=737) < meq/L Reference Range: No NormalsCREATININE, RANDOM [id number] 19:02:00 Test Item Value Reference Range Comments CREATININE URINE (BEAKER) (test kjkk=113) 160.3 mg/dL Reference Range: No NormalsPROTEIN, RANDOM [id number] 19:02:00 Test Item Value Reference Range Comments PROTEIN, URINE (BEAKER) (test ndps=7852) 19 mg/dL 0-14 SCREEN, [id number] 18:47:00 Test Item Value Reference Range Comments TEST URINE (BEAKER) (test bdqw=673) Negative POCT-GLUCOSE [id number] 18:08:00 Test Item Value Reference Range Comments POC-GLUCOSE METER (BEAKER) 183 mg/dL 70-110 TESTED AT [address] (test mqfm=0063) [place] [address] [id number] 13:33:00 Test Item Value Reference Range Comments POTASSIUM (BEAKER) (test kgjb=696) 3.2 meq/L 3.5-5.1 CBC (HEMOGRAM ONLY)2018-02-10 13:20:00 Test Item Value Reference Range Comments WHITE BLOOD CELL COUNT 4.6 K/ L 3.5-10.5 (BEAKER) (test xijl=581) RED BLOOD CELL COUNT (BEAKER) 2.47 M/ L 3.93-5.22 (test dkjp=030) HEMOGLOBIN (BEAKER) (test 7.6 GM/DL 11.2-15.7 guhw=372) HEMATOCRIT (BEAKER) (test 23.0 % 34.1-44.9 sblk=280) MEAN CORPUSCULAR VOLUME 93.1 fL 79.4-94.8 Discordant from previous (BEAKER) (test wvqg=686) results. Clinical correlation suggested. MEAN CORPUSCULAR HEMOGLOBIN 30.8 pg 25.6-32.2 (BEAKER) (test ezun=544) MEAN CORPUSCULAR HEMOGLOBIN 33.0 GM/DL 32.2-35.5 CONC (BEAKER) (test bcqr=060) RED CELL DISTRIBUTION WIDTH 20.5 % 11.7-14.4 (BEAKER) (test xhps=884) PLATELET COUNT (BEAKER) (test 111 K/CU MM 150-450 tzlr=619) MEAN PLATELET VOLUME (BEAKER) 11.2 fL 9.4-12.3 (test vfiz=878) NUCLEATED RED BLOOD CELLS 0 /100 WBC 0-0 (BEAKER) (test qszu=957) POCT-GLUCOSE [id number] 11:51:00 Test Item Value Reference Range Comments POC-GLUCOSE METER (BEAKER) 123 mg/dL 70-110 TESTED AT [address] (test ysfw=8571) [facility] [address] POCT-GLUCOSE [id number] 06:46:00 Test Item Value Reference Range Comments POC-GLUCOSE METER (BEAKER) 237 mg/dL 70-110 TESTED AT [address] (test kwxb=0178) [facility] [address] CBC (HEMOGRAM ONLY)2018-02-10 06:44:00 Test Item Value Reference Range Comments WHITE BLOOD CELL COUNT (BEAKER) (test fujw=487) 2.8 K/ L 3.5-10.5 RED BLOOD CELL COUNT (BEAKER) (test tuqn=485) 2.34 M/ L 3.93-5.22 HEMOGLOBIN (BEAKER) (test yxwc=579) 7.2 GM/DL 11.2-15.7 HEMATOCRIT (BEAKER) (test twue=920) 22.8 % 34.1-44.9 MEAN CORPUSCULAR VOLUME (BEAKER) (test cacs=113) 97.4 fL 79.4-94.8 MEAN CORPUSCULAR HEMOGLOBIN (BEAKER) (test 30.8 pg 25.6-32.2 teih=223) MEAN CORPUSCULAR HEMOGLOBIN CONC (BEAKER) (test 31.6 GM/DL 32.2-35.5 dcsi=283) RED CELL DISTRIBUTION WIDTH (BEAKER) (test 20.3 % 11.7-14.4 xryp=224) PLATELET COUNT (BEAKER) (test bern=710) 102 K/CU MM 150-450 MEAN PLATELET VOLUME (BEAKER) (test mvpm=654) 11.3 fL 9.4-12.3 NUCLEATED RED BLOOD CELLS (BEAKER) (test 0 /100 WBC 0-0 qfyu=065) RAPID DRUG SCREEN, [id number] 06:12:00 Test Item Value Reference Range Comments BARBITURATE URINE (BEAKER) (test huee=784) Negative Negative BENZODIAZEPINE SCREEN URINE (BEAKER) (test Negative Negative ygql=918) COCAINE (METAB.) SCREEN (BEAKER) (test nxva=4771) Negative Negative METHADONE SCREEN (BEAKER) (test feed=8730) Negative Negative OPIATE SCREEN URINE (BEAKER) (test lepa=114) Negative Negative CANNABINOID SCREEN URINE (BEAKER) (test rfjw=250) Negative Negative AMPH/METHAMPH SCREEN (BEAKER) (test zrbq=0661) Negative Negative PHENCYCLIDINE SCREEN URINE (BEAKER) (test coxw=589) Negative Negative OXYCODONE SCREEN URINE (BEAKER) (test otmn=5307) Negative Negative DRUG CUTOFF CONC.Cocaine 300 ng/mL Cannabinoid 50 ng/mL Benzodiazepine 200 ng/mLBarbiturate 200 ng/ mLPhencyclidine 25 ng/mLOpiate 300 ng/mLMethadone 300 ng/mLAmphetamine/ 1000 ng/mL MethamphetamineOxycodone 300 ng/mLThis assay provides an unconfirmed qualitative test result for the clinical management of patients in emergency situations. Chain of custody not maintained. Some gwmj-rgg-fqzbzuw medications, as well as adulterants, may cause inaccurate results. Clinical correlation should be applied. A more comprehensive drug screen or confirmation of a detected drug may be performed upon request.URINALYSIS W/ REFLEX URINE [id number] 04:33:00 Test Item Value Reference Range Comments COLOR (BEAKER) (test fzfl=905) Yellow CLARITY (BEAKER) (test qlmn=530) Hazy SPECIFIC GRAVITY UA (BEAKER) (test gzdc=561) 1.013 1.001-1.035 PH UA (BEAKER) (test qoih=246) 6.0 5.0-8.0 PROTEIN UA (BEAKER) (test yydg=751) 10 mg/dL Negative GLUCOSE UA (BEAKER) (test tbey=301) Negative Negative KETONES UA (BEAKER) (test ozfm=123) Trace Negative BILIRUBIN UA (BEAKER) (test ygdc=785) Negative Negative BLOOD UA (BEAKER) (test bgvp=279) Negative Negative NITRITE UA (BEAKER) (test ismz=320) Negative Negative LEUKOCYTE ESTERASE UA (BEAKER) (test adbn=379) Negative Negative UROBILINOGEN UA (BEAKER) (test fvnp=297) 0.2 mg/dL 0.2-1.0 RBC UA (BEAKER) (test bgaa=241) < /HPF WBC UA (BEAKER) (test gzxr=405) 2 /HPF BACTERIA (BEAKER) (test sncj=530) Rare MUCUS (BEAKER) (test kddb=6777) Rare SQUAMOUS EPITHELIAL (BEAKER) (test zyyr=724) 8 /HPF HYALINE CASTS (BEAKER) (test dgla=342) 70 /LPF AMORPHOUS CRYSTALS (BEAKER) (test jwpy=7328) Rare SOURCE(BEAKER) (test acfi=9943) BASIC METABOLIC [id number] 02:35:00 Test Item Value Reference Range Comments SODIUM (BEAKER) (test 137 meq/L 136-145 xljx=220) POTASSIUM (BEAKER) (test 2.9 meq/L 3.5-5.1 huya=242) CHLORIDE (BEAKER) (test 109 meq/L 98-107 varm=223) CO2 (BEAKER) (test 14 meq/L 22-29 uriv=993) BLOOD UREA NITROGEN 31 mg/dL 7-21 (BEAKER) (test xolc=784) CREATININE (BEAKER) (test 1.98 mg/dL 0.57-1.25 wapm=132) GLUCOSE RANDOM (BEAKER) 146 mg/dL 70-105 (test fshl=785) CALCIUM (BEAKER) (test 8.9 mg/dL 8.4-10.2 nlwf=304) EGFR (BEAKER) (test 27 mL/min/1.73 sq m ESTIMATED GFR IS NOT mrgi=4288) ACCURATE CREATININE CLEARANCE IN PREDICTING GLOMERULAR FILTRATION RATE. ESTIMATED GFR IS NOT APPLICABLE FOR DIALYSIS PATIENTS. [id number] 02:35:00 Test Item Value Reference Range Comments MAGNESIUM (BEAKER) (test gnnl=999) 2.0 mg/dL 1.6-2.6 HEPATIC FUNCTION [id number] 02:35:00 Test Item Value Reference Range Comments TOTAL PROTEIN (BEAKER) (test wqed=013) 7.4 gm/dL 6.0-8.3 ALBUMIN (BEAKER) (test rppo=6758) 3.8 g/dL 3.5-5.0 BILIRUBIN TOTAL (BEAKER) (test dbdn=593) 1.8 mg/dL 0.2-1.2 BILIRUBIN DIRECT (BEAKER) (test cduc=615) 0.9 mg/dL 0.1-0.5 ALKALINE PHOSPHATASE (BEAKER) (test fbgj=466) 73 U/L 40-150 AST (SGOT) (BEAKER) (test eult=225) 38 U/L 5-34 ALT (SGPT) (BEAKER) (test gumo=634) 14 U/L 6-55 BLOOD GAS, [id number] 02:34:00 Test Item Value Reference Range Comments PH VENOUS (BEAKER) (test rpdf=044) 7.42 7.32-7.42 PCO2 VENOUS (BEAKER) (test kbha=089) 28 mmHg 41-51 PO2 VENOUS (BEAKER) (test fvtu=010) 34 mmHg 25-40 O2 SATURATION VENOUS (BEAKER) (test lcpw=012) 67.6 % 40.0-70.0 HCO3 VENOUS (BEAKER) (test nwei=854) 17 mmol/L 21-29 BASE EXCESS VENOUS (BEAKER) (test euzv=380) -6.2 mmol/L -2.0-3.0 PATIENT TEMPERATURE (BEAKER) (test dkzz=9625) 37.0 C [id number] 02:33:00 Test Item Value Reference Range Comments PHOSPHORUS (BEAKER) (test qohe=291) 3.7 mg/dL 2.3-4.7 [id number] 02:33:00 Test Item Value Reference Range Comments LIPASE (BEAKER) (test jgwx=765) 40 U/L 8-78 CREATINE KINASE (CK), TOTAL AND [id number] 02:30:00 Test Item Value Reference Range Comments CREATINE KINASE TOTAL (BEAKER) (test bwdq=777) 30 U/L 29-200 CREATINE KINASE-MB (BEAKER) (test ufdg=807) 0.4 ng/mL 0.0-6.6 CREATINE KINASE-MB INDEX (BEAKER) (test ilcw=265) 1.3 % CK-MB Reference Range:<6.7 Normal6.7-10.0 Borderline>10.0 AbnormalTROPONIN [id number] 02:30:00 Test Item Value Reference Range Comments TROPONIN I (BEAKER) (test cyvd=593) < ng/mL 0.00-0.03 Troponin I (TnI) levels [...] failure, acidosis, acute neurological disease, and persistent tachyarrhythmia.[id number] 02:19:00 Test Item Value Reference Range Comments ETHANOL (BEAKER) (test wreu=105) < mg/dL <=10 [id number] 02:17:00 Test Item Value Reference Range Comments PARTIAL THROMBOPLASTIN TIME (BEAKER) (test 32.8 seconds 22.5-36.0 aqrm=680) LACTIC ACID, VENOUS, WHOLE [id number] 02:17:00 Test Item Value Reference Range Comments LACTATE BLOOD VENOUS (2) (BEAKER) (test 1.2 mmol/L 0.5-2.2 favo=6416) Effective 12/07/2015: Units/Reference Range ChangeNew: 0.5-2.2 mmol/L Previous: 5 -20 mg/dLPROTHROMBIN [id number] 02:16:00 Test Item Value Reference Range Comments PROTIME (BEAKER) (test qwme=553) 17.0 seconds 11.7-14.7 INR (BEAKER) (test hohz=856) 1.4 <=5.9 RECOMMENDED COUMADIN/WARFARIN INR THERAPY RANGESSTANDARD DOSE: 2.0 - 3.0 Includes: PROPHYLAXIS forvenous thrombosis, systemic embolization; TREATMENT for venous thrombosis and/or pulmonary embolus.HIGH RISK: Target INR is 2.5-3.5 for patients with mechanical heart valves.[id number] 02:16:00 Test Item Value Reference Range Comments AMMONIA (BEAKER) (test krvb=674) 75 mol/L 18-72 [id number] 02:16:00 Test Item Value Reference Range Comments FIBRINOGEN LEVEL (BEAKER) (test cisf=912) 372 mg/dl 225-434 CBC W/PLT COUNT & AUTO [id number] 02:10:00 Test Item Value Reference Range Comments WHITE BLOOD CELL COUNT (BEAKER) (test eqvd=679) 4.0 K/ L 3.5-10.5 RED BLOOD CELL COUNT (BEAKER) (test ngvv=236) 2.78 M/ L 3.93-5.22 HEMOGLOBIN (BEAKER) (test snbc=284) 8.5 GM/DL 11.2-15.7 HEMATOCRIT (BEAKER) (test gqdr=680) 25.8 % 34.1-44.9 MEAN CORPUSCULAR VOLUME (BEAKER) (test uxct=797) 92.8 fL 79.4-94.8 MEAN CORPUSCULAR HEMOGLOBIN (BEAKER) (test 30.6 pg 25.6-32.2 pqfb=567) MEAN CORPUSCULAR HEMOGLOBIN CONC (BEAKER) (test 32.9 GM/DL 32.2-35.5 mqbe=138) RED CELL DISTRIBUTION WIDTH (BEAKER) (test 18.7 % 11.7-14.4 hvsw=358) PLATELET COUNT (BEAKER) (test wjsj=019) 110 K/CU MM 150-450 MEAN PLATELET VOLUME (BEAKER) (test veza=747) 11.2 fL 9.4-12.3 NUCLEATED RED BLOOD CELLS (BEAKER) (test 0 /100 WBC 0-0 kkuk=787) NEUTROPHILS RELATIVE PERCENT (BEAKER) (test 92 % penn=636) LYMPHOCYTES RELATIVE PERCENT (BEAKER) (test 4 % kbew=073) MONOCYTES RELATIVE PERCENT (BEAKER) (test 3 % bqpf=863) EOSINOPHILS RELATIVE PERCENT (BEAKER) (test 1 % atux=692) BASOPHILS RELATIVE PERCENT (BEAKER) (test 0 % ttzy=592) NEUTROPHILS ABSOLUTE COUNT (BEAKER) (test 3.69 K/ L 1.56-6.13 abwt=401) LYMPHOCYTES ABSOLUTE COUNT (BEAKER) (test 0.14 K/ L 1.18-3.74 aeas=576) MONOCYTES ABSOLUTE COUNT (BEAKER) (test 0.11 K/ L 0.24-0.36 vxuo=375) EOSINOPHILS ABSOLUTE COUNT (BEAKER) (test 0.03 K/ L 0.04-0.36 afvl=328) BASOPHILS ABSOLUTE COUNT (BEAKER) (test 0.01 K/ L 0.01-0.08 rwov=656) IMMATURE GRANULOCYTES-RELATIVE PERCENT (BEAKER) 1 % 0-1 (test tuaf=1150) ANTI-NUCLEAR ANTIBODY (LÓPEZ)2017-11-29 09:50:00 Test Item Value Reference Range Comments ANTI-NUCLEAR ANTIBODY (LÓPEZ) (BEAKER) (test Positive Negative pfdy=268) LÓPEZ TITER AND [id number] 09:50:00 Test Item Value Reference Range Comments LÓPEZ TITER (BEAKER) (test oxhv=3211) :40 LÓPEZ PATTERN (BEAKER) (test ellh=6945) Speckled [id number] 15:34:00 Test Item Value Reference Range Comments FERRITIN (BEAKER) (test myue=402) 237 ng/mL 5-275 HEPATITIS B SURFACE [id number] 14:54:00 Test Item Value Reference Range Comments HEPATITIS B SURFACE ANTIBODY (BEAKER) (test < mIU/mL <8.0 offz=549) HEPATITIS B SURFACE [id number] 14:49:00 Test Item Value Reference Range Comments HEPATITIS B SURFACE ANTIGEN (2) (BEAKER) (test Nonreactive Nonreactive qbmb=4936) HEPATITIS C [id number] 14:49:00 Test Item Value Reference Range Comments HEPATITIS C ANTIBODY (BEAKER) (test knts=312) Nonreactive Nonreactive ALPHA FETOPROTEIN (AFP), TUMOR [id number] 14:48:00 Test Item Value Reference Range Comments ALPHA-FETOPROTEIN (BEAKER) (test dcfj=7204) 4.9 ng/mL <10.0 HEPATITIS B CORE ANTIBODY, [id number] 14:48:00 Test Item Value Reference Range Comments HEPATITIS B CORE TOTAL ANTIBODY (BEAKER) (test Nonreactive Nonreactive sett=793) HEPATITIS A ANTIBODY, [id number] 14:48:00 Test Item Value Reference Range Comments HEPATITIS A IGG ANTIBODY (BEAKER) (test Nonreactive Nonreactive wquc=1528) CBC W/PLT COUNT & AUTO [id number] 14:30:00 Test Item Value Reference Range Comments WHITE BLOOD CELL COUNT (BEAKER) (test zvql=515) 5.2 K/ L 3.5-10.5 RED BLOOD CELL COUNT (BEAKER) (test bsrd=731) 2.96 M/ L 3.93-5.22 HEMOGLOBIN (BEAKER) (test jbbi=616) 9.7 GM/DL 11.2-15.7 HEMATOCRIT (BEAKER) (test prkq=853) 31.0 % 34.1-44.9 MEAN CORPUSCULAR VOLUME (BEAKER) (test nphm=673) 104.7 fL 79.4-94.8 MEAN CORPUSCULAR HEMOGLOBIN (BEAKER) (test 32.8 pg 25.6-32.2 hjsh=544) MEAN CORPUSCULAR HEMOGLOBIN CONC (BEAKER) (test 31.3 GM/DL 32.2-35.5 lwyf=071) RED CELL DISTRIBUTION WIDTH (BEAKER) (test 17.8 % 11.7-14.4 cavg=587) PLATELET COUNT (BEAKER) (test gbuu=773) 92 K/CU MM 150-450 MEAN PLATELET VOLUME (BEAKER) (test knji=354) 10.3 fL 9.4-12.3 NUCLEATED RED BLOOD CELLS (BEAKER) (test 0 /100 WBC 0-0 okkq=074) NEUTROPHILS RELATIVE PERCENT (BEAKER) (test 81 % wjnk=407) LYMPHOCYTES RELATIVE PERCENT (BEAKER) (test 6 % axxt=297) MONOCYTES RELATIVE PERCENT (BEAKER) (test 9 % mowh=106) EOSINOPHILS RELATIVE PERCENT (BEAKER) (test 3 % gxpp=935) BASOPHILS RELATIVE PERCENT (BEAKER) (test 1 % cqgu=365) NEUTROPHILS ABSOLUTE COUNT (BEAKER) (test 4.23 K/ L 1.56-6.13 pkzg=101) LYMPHOCYTES ABSOLUTE COUNT (BEAKER) (test 0.29 K/ L 1.18-3.74 gtmy=101) MONOCYTES ABSOLUTE COUNT (BEAKER) (test aqpw=253) 0.49 K/ L 0.24-0.36 EOSINOPHILS ABSOLUTE COUNT (BEAKER) (test 0.14 K/ L 0.04-0.36 iqvf=119) BASOPHILS ABSOLUTE COUNT (BEAKER) (test okww=449) 0.06 K/ L 0.01-0.08 IMMATURE GRANULOCYTES-RELATIVE PERCENT (BEAKER) 0 % 0-1 (test xepz=7264) COMPREHENSIVE METABOLIC [id number] 14:28:00 Test Item Value Reference Range Comments TOTAL PROTEIN (BEAKER) 7.6 gm/dL 6.0-8.3 (test tryj=567) ALBUMIN (BEAKER) (test 3.6 g/dL 3.5-5.0 bblj=8194) ALKALINE PHOSPHATASE 144 U/L 40-150 (BEAKER) (test tlfs=030) BILIRUBIN TOTAL (BEAKER) 1.1 mg/dL 0.2-1.2 (test kbtf=602) SODIUM (BEAKER) (test 135 meq/L 136-145 ipwe=835) POTASSIUM (BEAKER) (test 3.6 meq/L 3.5-5.1 kgzh=317) CHLORIDE (BEAKER) (test 103 meq/L 98-107 hjab=814) CO2 (BEAKER) (test 22 meq/L 22-29 yyjt=489) BLOOD UREA NITROGEN 16 mg/dL 7-21 (BEAKER) (test eoih=228) CREATININE (BEAKER) (test 1.82 mg/dL 0.57-1.25 tsfi=985) GLUCOSE RANDOM (BEAKER) 102 mg/dL 70-105 (test wjif=574) CALCIUM (BEAKER) (test 9.1 mg/dL 8.4-10.2 zenn=877) AST (SGOT) (BEAKER) (test 39 U/L 5-34 hbgl=244) ALT (SGPT) (BEAKER) (test 14 U/L 6-55 lcrm=834) EGFR (BEAKER) (test 30 mL/min/1.73 sq m ESTIMATED GFR IS NOT pwjs=6026) ACCURATE CREATININE CLEARANCE IN PREDICTING GLOMERULAR FILTRATION RATE. ESTIMATED GFR IS NOT APPLICABLE FOR DIALYSIS PATIENTS. BILIRUBIN, [id number] 14:28:00 Test Item Value Reference Range Comments BILIRUBIN DIRECT (BEAKER) (test pbqb=377) 0.6 mg/dL 0.1-0.5 IRON, TIBC, % SAT. (WITHOUT FERRITIN)2017-11-27 14:26:00 Test Item Value Reference Range Comments IRON (BEAKER) (test wlab=713) 37 ug/dL 40-160 TOTAL IRON BINDING CAPACITY (BEAKER) (test 219 ug/dL 250-450 rnyh=886) IRON % SATURATION (2) (BEAKER) (test ekfq=9399) 17 % 20-55 [id number] 14:25:00 Test Item Value Reference Range Comments ALPHA-1 ANTITRYPSIN (BEAKER) (test dgtc=651) 151.80 mg/dL 90.00-200.00 PROTHROMBIN TIME/[id number] 14:03:00 Test Item Value Reference Range Comments PROTIME (BEAKER) (test gvht=975) 17.2 seconds 11.7-14.7 INR (BEAKER) (test akem=130) 1.4 <=5.9 RECOMMENDED COUMADIN/WARFARIN INR THERAPY RANGESSTANDARD DOSE: 2.0 - 3.0 Includes: PROPHYLAXIS forvenous thrombosis, systemic embolization; TREATMENT for venous thrombosis and/or pulmonary embolus.HIGH RISK: Target INR is 2.5-3.5 for patients with mechanical heart valves.
[2018-04-06 15:52] LABS: Barbiturates NEGATIVE (NEGATIVE); Benzodiazepines NEGATIVE (NEGATIVE); Cocaine NEGATIVE (NEGATIVE); METHAMPHETAM NEGATIVE (NEGATIVE); Methadone NEGATIVE (NEGATIVE); Opiates NEGATIVE (NEGATIVE); Phencyclidine NEGATIVE (NEGATIVE); THC Cannibis NEGATIVE (NEGATIVE)
[2018-04-06 15:54] LABS: Absolute Lymphocytes (CBC) 0.2 K/uL (0.7-4.9); Absolute Monocytes 0.4 K/uL (0.1-1.3); Absolute Neutrophil 2.8 K/uL (1.8-8.0); Basophils % 2.4 % (0-1.3); Eosinophils % 5.4 % (0-4.4); Hematocrit 29.6 % (36.0-45.0); MPV 9.7 fL (7.6-11.3); Monocytes % 10.9 % (3.3-12.3); RBC Red Blood Cell Count 3.08 M/uL (3.86-4.86)
[2018-04-06 15:57] LABS: Protime INR 1.22
[2018-04-06 16:03] LABS: Albumin 3.9 g/dL (3.4-5.0); Bilirubin Direct 0.5 mg/dL (0-0.2); Bilirubin Total 1.3 mg/dL (0.2-1.0); Magnesium 1.7 mg/dL (1.8-2.4); Protein, Total 7.9 g/dL (6.4-8.2)
--- NOTE | 2018-04-06 16:19 | RAD REPORT ---
EXAM DESCRIPTION: [place] Single View04/06/2018 3:53 pm CLINICAL HISTORY: PALPITATIONS COMPARISON: Chest Single View dated 12/20/2017; FINDINGS: The lungs appear clear of acute infiltrate. The heart is normal size IMPRESSION: No acute abnormalities displayed
[2018-04-06] MEDS ORDERED: POTASSIUM 25 MEQ EFFERV TAB ONE ×2 (16:46→17:41)
[2018-04-06] MEDS ORDERED: KCL 20 MEQ/100 mL IVPB 20 MEQ/100 ML BAG IV ONE (16:46)
[2018-04-06] MEDS ORDERED: NA CHLORIDE 0.9% 250 ML ONE ×2 (16:46→20:11)
--- NOTE | 2018-04-06 17:53 | ER ---
Nurse's Notes [facility] Name: Amauri Miller Age: 47 yrs Sex: Female : 1970 Arrival Date: 04/06/2018 Time: 14:33 Bed 30 Private MD: None, None Diagnosis: Hypokalemia Presentation: 04/06 14:37 Presenting complaint: Patient states: palpitations and SOB since yesterday. Pt reports aa5 last paracentesis was Saturday. Pt states "I stopped drinking a week ago". Transition of care: patient was not received from another setting of care. Onset of symptoms was April 2018. Risk Assessment: Do you want to hurt yourself or someone else? Patient reports no desire to harm self or others. Initial Sepsis Screen: Does the patient meet any 2 criteria? No. Patient's initial sepsis screen is negative. Does the patient have a suspected source of infection? No. Patient's initial sepsis screen is negative. Care prior to arrival: None. 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 - Social history:: Smoking status: Patient uses tobacco products, denies chronic smoking, but will smoke occasionally. - Ebola Screening: : No symptoms or risks identified at this time. Screenin:12 Abuse screen: Denies threats or abuse. Denies injuries from another. Nutritional wh screening: No deficits noted. Tuberculosis screening: No symptoms or risk factors identified. Fall Risk None identified. Assessment: 15:03 General: Appears in no apparent distress. comfortable, Behavior is calm, cooperative, wh appropriate for age. Pain: Denies pain. Neuro: Level of Consciousness is awake, alert, obeys commands, Logistics Management Specialist are equal bilaterally. Cardiovascular: Reports palpitations, for 2 days now lasting 2 to 3 seconds Heart tones S1 S2 Capillary refill < 3 seconds Rhythm is regular. Respiratory: Airway is patent Respiratory effort is even, unlabored, Respiratory pattern is regular, symmetrical, Breath sounds are clear bilaterally. GI: Abdomen is round non-distended, Pt with open wound from previous hernia repair, dressing dry and intact Bowel sounds present X 4 quads. Abd is soft and non tender X 4 quads. Reports once a week Paracentesis done last one done Saturday. : No signs and/or symptoms were reported regarding the genitourinary system. EENT: No signs and/or symptoms were reported regarding the EENT system. Derm: Skin is intact, is healthy with good turgor, Skin is pink, warm \\T\\ dry. normal. Musculoskeletal: Range of motion: intact in all extremities. 16:11 Reassessment: Patient appears in no apparent distress at this time. Patient and/or wh family updated on plan of care and expected duration. Pain level reassessed. Patient is alert, oriented x 3, equal unlabored respirations, skin warm/dry/pink. 16:57 Reassessment: Patient appears in no apparent distress at this time. Patient and/or wh family updated on plan of care and expected duration. Pain level reassessed. Patient is alert, oriented x 3, equal unlabored respirations, skin warm/dry/pink. 18:22 Reassessment: Patient appears in no apparent distress at this time. Patient and/or wh family updated on plan of care and expected duration. Pain level reassessed. Patient is alert, oriented x 3, equal unlabored respirations, skin warm/dry/pink. 19:14 Reassessment: Patient and/or family updated on plan of care and expected duration. Pain sr5 level reassessed. Patient is alert, oriented x 3, equal unlabored respirations, skin warm/dry/pink. Sinus rhythm on monitor, denies CP at this time. Requesting meal tray. Awaiting transfer to inpatient. 19:38 Reassessment: No changes from previously documented assessment. Patient and/or family sr5 updated on plan of care and expected duration. Pain level reassessed. Patient is alert, oriented x 3, equal unlabored respirations, skin warm/dry/pink. 19:50 Reassessment: Report given to 2nd floor receiving RN. sr5 Vital Signs: 14:38 BP 129 / 87; Pulse 96; Resp 16 S; Temp 97.7(TE); Pulse Ox 100% on R/A; Weight 57.15 kg aa5 (R); Height 5 ft. 6 in. (167.64 cm) (R); Pain 10/10; 15:30 BP 107 / 74; Pulse 84; Resp 18; Pulse Ox 100% on R/A; wh 16:57 BP 104 / 71; Pulse 88; Resp 17; Pulse Ox 99% on R/A; wh 18:22 BP 99 / 82; Pulse 85; Resp 17; Pulse Ox 100% on R/A; wh 19:38 BP 95 / 67; Pulse 94; Resp 18; Pulse Ox 100% ; Pain 5/10; sr5 14:38 Body Mass Index 20.34 (57.15 kg, 167.64 cm) aa5 14:38 reports chest pain aa5 19:38 denies CP. c/o pain to hernia repair site. Bandage remains dry/intact. Requesting meal sr5 tray Vitals: 19:38 Cardiac Rhythm Assessment Sinus rhythm. sr5 ED Course: 14:33 Patient arrived in ED. mr 14:33 None, None is Private Physician. mr 14:37 Triage completed. aa5 14:37 Arm band placed on. aa5 14:43 Felicia Ovalles is Primary Nurse. wh 14:54 Jeovanny Tobar NP is PHCP. pm1 14:54 Harley Olguin MD is Attending Physician. pm1 15:09 Inserted saline lock: 22 gauge in right forearm, using aseptic technique. Blood wh collected. 15:48 X-ray completed. Portable x-ray completed in exam room. Patient tolerated procedure jb2 well. 15:54 XRAY Chest (1 view) In Process Unspecified. EDMS 16:13 Patient has correct armband on for positive identification. Placed in gown. Bed in low wh position. Call light in reach. Side rails up X 1. hospital monitor on. Pulse ox on. NIBP on. 17:53 Rudi Denise MD is Hospitalizing Provider. pm1 17:53 Jose Denise MD is Hospitalizing Provider. pm1 Administered Medications: 16:50 Drug: Potassium Effervescent Tablet 50 mEq Route: PO; wh 17:31 Follow up: Response: No adverse reaction wh 16:50 Drug: Potassium Chloride 20 mEq Route: IV; Rate: calculated rate; Site: right forearm; wh 18:45 Follow up: IV Status: Completed infusion; IV Intake: 200ml sr5 17:31 Drug: Potassium Effervescent Tablet 50 mEq Route: PO; wh 17:41 Follow up: Response: No adverse reaction Intake: 18:45 IV: 200ml; Total: 200ml. sr5 Outcome: 17:53 Decision to Hospitalize by Provider. pm1 20:00 Patient left the ED. sr5 Signatures: Dispatcher [employer] Yasmeen Song mr Hankins, Stevo jb2 Shu Fatima, RN RN aa5 Jeovanny Tobar, SUPERVISOR SOLDER MAKING SUPERVISOR SOLDER MAKING pm1 Mainor Garcia RN RN sr5 Felicia Ovalles
--- NOTE | 2018-04-06 17:54 | EDPHYS ---
Physician Documentation [facility] Name: Amauri Miller Age: 47 yrs Sex: Female : 1970 Arrival Date: 04/06/2018 Time: 14:33 Bed 30 Private MD: None, None ED Physician Harley Olguin HPI: 04/06 16:00 This 47 yrs old Female presents to ER via Ambulatory with complaints of pm1 Palpitations. 16:00 The patient presents with a history of heart racing. Context: The symptoms occur at pm1 rest. Onset: The symptoms/episode began/occurred yesterday. Duration: The patient or guardian reports multiple episodes, the episodes last approximately 3 second(s). Modifying factors: The symptoms are aggravated by nothing. The symptoms are alleviated by nothing. Associated signs and symptoms: Pertinent positives: SOB with palpitations, Pertinent negatives: chest pain, fever, nausea, vomiting. Severity of symptoms: in the emergency department the symptoms have resolved. The patient has not experienced similar symptoms in the past. The patient has been recently seen by a physician: Saturday had a paracentesis here. 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 - Social history:: Smoking status: Patient uses tobacco products, denies chronic smoking, but will smoke occasionally. - Ebola Screening: : No symptoms or risks identified at this time. ROS: 16:00 Constitutional: Negative for fever, chills, and weight loss, Eyes: Negative for injury, pm1 pain, redness, and discharge, ENT: Negative for injury, pain, and discharge, Neck: Negative for injury, pain, and swelling, Abdomen/GI: Negative for abdominal pain, nausea, vomiting, diarrhea, and constipation. 16:00 Back: Negative for injury and pain, : Negative for injury, bleeding, discharge, and swelling, MS/Extremity: Negative for injury and deformity, Skin: Negative for injury, rash, and discoloration, Neuro: Negative for headache, weakness, numbness, tingling, and seizure. 16:00 Cardiovascular: Positive for palpitations, Negative for chest pain. 16:00 Respiratory: Positive for SOB with palpitations, Negative for cough, dyspnea on exertion. Exam: 16:00 Constitutional: This is a well developed, well nourished patient who is awake, alert, pm1 and in no acute distress. Head/Face: Normocephalic, atraumatic. Eyes: Pupils equal round and reactive to light, extra-ocular motions intact. Lids and lashes normal. Conjunctiva and sclera are non-icteric and not injected. Cornea within normal limits. Periorbital areas with no swelling, redness, or edema. ENT: Nares patent. No nasal discharge, no septal abnormalities noted. Tympanic membranes are normal and external auditory canals are clear. Oropharynx with no redness, swelling, or masses, exudates, or evidence of obstruction, uvula midline. Mucous membranes moist. Neck: Trachea midline, no thyromegaly or masses palpated, and no cervical lymphadenopathy. Supple, full range of motion without nuchal rigidity, or vertebral point tenderness. No Meningismus. Chest/axilla: Normal chest wall appearance and motion. Nontender with no deformity. No lesions are appreciated. Cardiovascular: Regular rate and rhythm with a normal S1 and S2. No gallops, murmurs, or rubs. Normal PMI, no JVD. No pulse deficits. Respiratory: Lungs have equal breath sounds bilaterally, clear to auscultation and percussion. No rales, rhonchi or wheezes noted. No increased work of breathing, no retractions or nasal flaring. 16:00 Abdomen/GI: Inspection: abdomen appears normal, distension. Vital Signs: 14:38 BP 129 / 87; Pulse 96; Resp 16 S; Temp 97.7(TE); Pulse Ox 100% on R/A; Weight 57.15 kg aa5 (R); Height 5 ft. 6 in. (167.64 cm) (R); Pain 10/10; 15:30 BP 107 / 74; Pulse 84; Resp 18; Pulse Ox 100% on R/A; wh 16:57 BP 104 / 71; Pulse 88; Resp 17; Pulse Ox 99% on R/A; wh 18:22 BP 99 / 82; Pulse 85; Resp 17; Pulse Ox 100% on R/A; wh 19:38 BP 95 / 67; Pulse 94; Resp 18; Pulse Ox 100% ; Pain 5/10; sr5 14:38 Body Mass Index 20.34 (57.15 kg, 167.64 cm) aa5 14:38 reports chest pain aa5 19:38 denies CP. c/o pain to hernia repair site. Bandage remains dry/intact. Requesting meal sr5 tray MDM: 15:05 Patient medically screened. pm1 17:45 Physician consultation: Tray Leigh MD was contacted at 17:45, regarding consult, pm1 patient's condition, He is out of town until Saturday. Recommends observation admission to hospitalist. 17:51 Data reviewed: vital signs. Data interpreted: Pulse oximetry: on room air is 99 %. pm1 Interpretation: normal. Counseling: I had a detailed discussion with the patient and/or guardian regarding: the historical points, exam findings, and any diagnostic results supporting the discharge/admit diagnosis, lab results, the need for further work-up and treatment in the hospital. 17:51 Physician consultation: Jose Denise MD was called at 17:52, was contacted at 17:52, pm1 regarding admission, patient's condition, and will see patient would like medications started, potassium replacement protocol. 04/06 15:15 Order name: Basic Metabolic Panel; Complete Time: 16:29 pm1 04/06 15:15 Order name: CBC with Diff; Complete Time: 16:29 pm1 04/06 15:15 Order name: LFT's; Complete Time: 16:29 pm1 04/06 15:15 Order name: Magnesium; Complete Time: 16:29 pm1 04/06 15:15 Order name: PT-INR; Complete Time: 16:29 pm1 04/06 15:15 Order name: Ptt, Activated; Complete Time: 16:29 pm1 04/06 15:16 Order name: UDS; Complete Time: 16:29 pm1 04/06 16:37 Order name: Urine Dipstick--Ancillary (enter results) 04/06 18:08 Order name: Basic Metabolic Panel EDMS 04/06 18:08 Order name: Basic Metabolic Panel EDNC 04/06 18:08 Order name: CBC with Automated Diff EDMS 04/06 18:08 Order name: CBC with Automated Diff EDMS 04/06 15:15 Order name: XRAY Chest (1 view); Complete Time: 16:29 pm1 04/06 15:15 Order name: EKG; Complete Time: 15:16 pm1 04/06 15:15 Order name: Cardiac monitoring; Complete Time: 15:37 pm1 04/06 15:15 Order name: EKG - Nurse/Tech; Complete Time: 15:37 pm1 04/06 15:15 Order name: IV Saline Lock; Complete Time: 15:37 pm1 04/06 15:15 Order name: Labs collected and sent; Complete Time: 15:37 pm1 04/06 15:15 Order name: O2 Per Protocol; Complete Time: 15:37 pm1 04/06 15:15 Order name: O2 Sat Monitoring; Complete Time: 15:37 pm1 04/06 15:16 Order name: Urine Dipstick-Ancillary (obtain specimen); Complete Time: 15:37 pm1 Administered Medications: 16:50 Drug: Potassium Effervescent Tablet 50 mEq Route: PO; 17:31 Follow up: Response: No adverse reaction 16:50 Drug: Potassium Chloride 20 mEq Route: IV; Rate: calculated rate; Site: right forearm; 18:45 Follow up: IV Status: Completed infusion; IV Intake: 200ml sr5 17:31 Drug: Potassium Effervescent Tablet 50 mEq Route: PO; 17:41 Follow up: Response: No adverse reaction Disposition: 04/06/18 17:53 Hospitalization ordered by Jose Denise for Observation. Preliminary diagnosis is Hypokalemia. - Bed requested for Telemetry/MedSurg (observation). - Status is Observation. sr5 - Condition is Stable. - Problem is new. - Symptoms have improved. UTI on Admission? No Addendum: 04/10/2018 07:13 Co-signature as Attending Physician, Harley Olguin MD I agree with the assessment and k dr plan of care. Signatures: Dispatcher [employer] EDNC Harley Olguin MD MD kdr Calderon, Audri RN RN aa5 Jeovanny Tobar NP FINANCIAL ASSOCIATE pm1 Mainor Garcia RN RN sr5 Felicia Ovalles Farzana Rivera Corrections: (The following items were deleted from the chart) 04/06 18:27 17:53 Hospitalization Ordered by Jose Denise MD for Observation. Preliminary eb diagnosis is Hypokalemia. Bed requested for Telemetry/MedSurg (observation). Status is Observation. Condition is Stable. Problem is new. Symptoms have improved. UTI on Admission? No. pm1 20:00 18:27 04/06/2018 17:53 Hospitalization Ordered by Jose Denise MD for Observation. sr5 Preliminary diagnosis is Hypokalemia. Bed requested for Telemetry/MedSurg (observation). Status is Observation. Condition is Stable. Problem is new. Symptoms have improved. UTI on Admission? No. eb
[2018-04-06] MEDS ORDERED: ACETAMINOPHEN 500 MG TAB PO PRN (18:06)
--- NOTE | 2018-04-06 19:10 | P.HP ---
Certification for Inpatient With expected LOS: <2 Midnights Patient will require the following post-hospital care: None Practitioner: I am a practitioner with admitting privileges, knowledge of patient current condition, hospital course, and medical plan of care. Services: Services provided to patient in accordance with Admission requirements found in Title 42 Section 412.3 of the Code of Federal Regulations Patient History Date of Service: 04/06/18 Primary Care Provider: Dr. randolph Reason for admission: Hypokalemia and palpitations History of Present Illness: Patient is 47 years of age with a history of alcohol-induced cirrhosis admitted with sudden onset of palpitations and she felt dizzy patient came to the emergency room and was found to be hypokalemic she does take diuretics in addition to a lactulose and recently feeling nauseated no fever chills also seen by a surgical department at [facility] for hernia Allergies No Known Allergies Allergy (Verified 04/04/18 09:28) Home Medications: Potassium Chloride 20 meq PO DAILY 10/28/17 Tramadol HCl [Ultram] 50 mg PO Q6H PRN 11/07/17 Thiamine HCl [Vitamin B-1*] 100 mg PO DAILY tablet 12/08/17 Nadolol 20 mg PO DAILY 12/17/17 Sodium Bicarbonate 325 mg PO DAILY 12/17/17 Bumetanide [Bumex] 0.5 mg PO DAILY 02/06/18 Ciprofloxacin [Ciprofloxacin 500 MG/5 ML Susp] 500 mg PO BID 02/06/18 Lactulose [Cephulac] 30 ml PO Q6H 02/06/18 Midodrine HCl [Proamatine] 5 mg PO BID 02/06/18 Mupirocin Cream [Bactroban 2% Cream*] 1 ryan TOP BID 02/06/18 Ondansetron HCl [Zofran] 4 mg PO Q12H PRN 02/06/18 Pantoprazole [Protonix Tab*] 40 mg PO DAILY 02/06/18 - Past Medical/Surgical History Diabetic: No -: Alcoholic liver cirrhosis -: anemia -: Esophageal varices -: HTN -: Paracentesis -: Hernia repair -: Banding - Family History Father -: Liver disease Notes: pt adopted, does not any history of her parents. - Social History Alcohol use: Yes CD- Drugs: No Caffeine use: No Review of Systems 10-point ROS is otherwise unremarkable General: Weakness Cardiovascular: Palpitations Physical Examination - Vital Signs Temperature: 96 F Blood Pressure: 129/87 Pulse: 96 Respirations: 16 Pulse Ox (%): 100 - Physical Exam General: Alert, Oriented x3 HEENT: Atraumatic Neck: Supple Respiratory: Clear to auscultation bilaterally, Normal air movement Cardiovascular: No edema, Regular rate/rhythm, Normal S1 S2 Gastrointestinal: Normal bowel sounds, Soft and benign, Other (She has a wound dehiscence) Musculoskeletal: No clubbing, No swelling Integumentary: No rashes, No breakdown - Studies Laboratory Data (last 24 hrs) 04/06/18 15:25: PT 14.4 H, INR 1.22, APTT 33.9 04/06/18 15:25: WBC 3.7 L, Hgb 10.5 L, Hct 29.6 L, Plt Count 104 L 04/06/18 15:25: Sodium 139, Potassium 2.0 L*, BUN 19 H, Creatinine 1.50 H, Glucose 117 H, Magnesium 1.7 L, Total Bilirubin 1.3 H, AST 50 H, ALT 25, Alkaline Phosphatase 133 H Assessment and Plan - Problems (Diagnosis) (1) Hypokalemia Onset Date: 12/09/17 Current Visit: No Status: Acute Plan: Patient is 47 years of age admitted with palpitations secondary to hypokalemia he does take diuretics and lactulose at home patient end-stage liver cirrhosis and is to replace her potassium he does take diuretics at home chest x-rays clear mild pancytopenia former cirrhosis plan to also replace her magnesium Discharge Plan: Home Plan to discharge in: 24 Hours - Advance Directives Does patient have a Living Will: No Does patient have a Durable POA for Healthcare: No
[2018-04-06] MEDS ORDERED: Magnesium Sulfate 2gm IVPB 2 G/50 ML BAG IV ONE (19:13)
[2018-04-06 20:15] VITALS: O2SAT 100
[2018-04-06 20:32] VITALS: BMI 19.4
[2018-04-06] MEDS ORDERED: HYDROCODONE/APAP 10/325 TAB PO PRN (23:10)
[2018-04-06] MEDS ORDERED: TEMAZEPAM 15 MG CAP PO PRN (23:10)
[2018-04-06 23:33] LABS: Potassium 2.6 mmol/L (3.5-5.1)
[2018-04-07] MEDS ORDERED: POTASSIUM 25 MEQ EFFERV TAB PO ONE ×2 (00:06→06:00)
[2018-04-07 00:26] LABS: Urine Appearance CLEAR; Urine Bilirubin NEGATIVE (NEG); Urine Blood NEGATIVE (NEG); Urine Color YELLOW; Urine Glucose NEGATIVE (NEG); Urine Protein NEGATIVE (NEG); Urine Specific Gravity 1.015 (1.005-1.030)
[2018-04-07 00:34] LABS: Urine Microscopic Reflex NO UMIC
[2018-04-07] MEDS ORDERED: KCL 20 MEQ/100 mL IVPB 20 MEQ/100 ML BAG IV SCH (01:00)
[2018-04-07 05:05] LABS: Absolute Lymphocytes (CBC) 0.2 K/uL (0.7-4.9); Absolute Monocytes 0.3 K/uL (0.1-1.3); Absolute Neutrophil 2.2 K/uL (1.8-8.0); Basophils % 0.9 % (0-1.3); Eosinophils % 7.8 % (0-4.4); Hematocrit 26.3 % (36.0-45.0); Lymphocytes % 8.2 % (15.3-44.8); MCH 32.9 pg (27.0-35.0); MCV 95.9 fL (80-100); MPV 9.9 fL (7.6-11.3); Monocytes % 9.8 % (3.3-12.3); RBC Red Blood Cell Count 2.74 M/uL (3.86-4.86)
[2018-04-07 05:42] LABS: Blood Morphology Comment NOT SEEN (NOT SEEN); Platelet Estimate ADEQ; Urine White Blood Cell Casts OK
[2018-04-07 07:24] LABS: Magnesium 2.4 mg/dL (1.8-2.4); Potassium 4.2 mmol/L (3.5-5.1)
--- NOTE | 2018-04-07 07:56 | EKG ---
Test Date: 2018-04-06 Test Time: 14:59:49 Office Clin Asst: JUANITA MEASUREMENT RESULTS: Intervals: Rate: 90 MS: 156 QRSD: 80 QT: 394 QTc: 481 [place]: P: 46 MS: 156 QRS: 14 T: 38 INTERPRETIVE STATEMENTS: Normal sinus rhythm Nonspecific ST abnormality Prolonged QT Abnormal ECG Compared to ECG 12/16/2017 17:26:11 ST (T wave) deviation now present Prolonged QT interval now present Sinus tachycardia no longer present Electronically Signed On 04-07-18 07:54:47 CDT by Eduard Crawford
[2018-04-07] MEDS ORDERED: DIPHENHYDRAMINE 25 MG TAB/CAP PO PRN (09:31)
[2018-04-07] MEDS ORDERED: MUPIROCIN 2% OINT 22GM TUBE TOP SCH (10:15)
[2018-04-07] MEDS ORDERED: THIAMINE HCL 100 MG TABLET PO SCH (10:15)
[2018-04-07] MEDS ORDERED: FOLIC ACID 1 MG TABLET PO SCH (11:00)
[2018-04-07] MEDS ORDERED: MIDODRINE HCL 5 MG TABLET PO SCH (11:00)
[2018-04-07] MEDS ORDERED: Rifaximin 550 MG Tab PO SCH (11:00)
[2018-04-07] MEDS ORDERED: PANTOPRAZOLE 40MG TABLET PO SCH (11:30)
--- NOTE | 2018-04-07 12:08 | PN ---
Date of Progress Note: 04/07/2018 Subjective: The patient is seen and examined. Chart reviewed and case discussed with RN. The patie nt still very somnolent and drowsy. Denies any pain. Review of Systems: Negative as above. Medications: List reviewed. Physical Examination: Vital Signs: Temperature 98.2, heart rate 87, blood pressure 92/56, respirations 15, O2 97% on room air. General: Asleep, but arousable, somnolent, ill-appearing female. CV: S1, S2. No murmurs. Peripheral pulses present. Respiratory: Diminished breath sounds at the bases. No wheezing or stridor. Poor inspiratory effor t. Gastrointestinal: Abdomen is soft, nontender, nondistended. Positive bowel sounds. Extremities: No clubbing, cyanosis. Trace edema. Neurologic: Nonfocal. Laboratory Data: Sodium 139, potassium 4.2, chloride 105, CO2 26, BUN 20, creatinine 1.4, glucose 97 , calcium 8.7, magnesium 2.4. WBC 3, H and H 9 and 26.3, platelets 86, neutrophils 73%. Assessment And Plan: A 47-year-old female with: 1.Dizziness. We will obtain PT evaluation and ambulate with assist. May be related to the patient' s generalized condition. 2.Hypokalemia. We will replace and monitor. Check magnesium level. 3.Palpitations, resolved. 4.History of alcoholic liver cirrhosis. We will resume home medications. Continue lactulose. 5.Thrombocytopenia, likely related to liver cirrhosis. 6.Acute kidney injury. Creatinine is improved from yesterday. We will continue to monitor. 7.Hypomagnesemia, replaced. 8.Normocytic normochromic anemia. Plan: Follow up on wound cultures, PT eval, likely discharge in the next 24 hours if improves. SA/MODL Voice ID: [id number] Report ID: [id number]
[2018-04-07 13:14] VITALS: BP 103/56; TEMP 97.3
--- NOTE | 2018-04-07 13:54 | P.DS ---
Admission Date: 04/06/18 Discharge Date: 04/07/18 Primary Care Provider: Dr. randolph Disposition: ROUTINE DISCHARGE Discharge Condition: FAIR Reason for Admission: Hypokalemia and palpitations - Problems (1) Palpitations Status: Acute (2) Chronic kidney disease Onset Date: 10/21/17 Status: Acute Qualifiers: (3) Hypokalemia Onset Date: 12/09/17 Status: Acute (4) Nicotine dependence Onset Date: 12/09/17 Status: Acute Qualifiers: Nicotine product type: cigarettes Substance use status: unspecified nicotine-induced disorder Qualified Code(s): F17.219 - Nicotine dependence, cigarettes, with unspecified nicotine-induced disorders (5) Alcoholic cirrhosis Onset Date: 10/21/17 Status: Chronic Qualifiers: Ascites presence: with ascites Qualified Code(s): K70.31 - Alcoholic cirrhosis of liver with ascites (6) Anemia Onset Date: 10/21/17 Status: Chronic Qualifiers: (7) GERD (gastroesophageal reflux disease) Onset Date: 10/21/17 Status: Chronic Qualifiers: Esophagitis presence: with esophagitis Qualified Code(s): K21.0 - Gastro- esophageal reflux disease with esophagitis (8) History of esophageal varices Status: Chronic Brief History of Present Illness: From H&P Patient is 47 years of age with a history of alcohol-induced cirrhosis admitted with sudden onset of palpitations and she felt dizzy patient came to the emergency room and was found to be hypokalemic she does take diuretics in addition to a lactulose and recently feeling nauseated no fever chills also seen by a surgical department at [facility] Course: Patient is a 47-year-old female with history of alcoholic liver cirrhosis comes in with dizziness palpitations. Patient was started on IV fluids her potassium was found to be low which was replaced her home medications were continued patient does have some level of chronic kidney disease however creatinine was slightly above baseline baseline at 1.5 patient's creatinine improved she was recommended to lower her dose of Bumex to 1 mg daily. Patient voiced understanding she will continue her potassium supplementation. Patient was able to ambulate well with PT she no longer had any dizziness or palpitations. Patient was then cleared for discharge and was sent home in a stable condition. Vital Signs/Physical Exam: Temp Pulse Resp BP Pulse Ox 97.3 F 88 16 103/56 L 100 04/07/18 12:00 04/07/18 12:00 04/07/18 12:00 04/07/18 12:00 04/07/18 12:00 Other Physical/Emotional Findings: PLEASE SEE PROGRESS NOTE DICTATED ON THE DAY OF DISCHARGE FOR PHYSICAL EXAM FINDINGS Laboratory Data at Discharge: WBC 3.0 K/uL (4.3-10.9) L D 04/07/18 04:27 Hgb 9.0 g/dL (12.0-15.0) L 04/07/18 04:27 Hct 26.3 % (36.0-45.0) L 04/07/18 04:27 Plt Count 86 K/uL (152-406) L* 04/07/18 04:27 PT 14.4 SECONDS (9.5-12.5) H 04/06/18 15:25 INR 1.22 04/06/18 15:25 APTT 33.9 SECONDS (24.3-36.9) 04/06/18 15:25 Sodium 139 mmol/L (136-145) 04/07/18 06:56 Potassium 4.2 mmol/L (3.5-5.1) D 04/07/18 06:56 BUN 20 mg/dL (7-18) H 04/07/18 06:56 Creatinine 1.40 mg/dL (0.55-1.3) H 04/07/18 06:56 Glucose 97 mg/dL (74-106) 04/07/18 06:56 Magnesium 2.4 mg/dL (1.8-2.4) D 04/07/18 06:56 Total Bilirubin 1.3 mg/dL (0.2-1.0) H 04/06/18 15:25 AST 50 U/L (15-37) H 04/06/18 15:25 ALT 25 U/L (12-78) 04/06/18 15:25 Alkaline Phosphatase 133 U/L (45-117) H 04/06/18 15:25 Home Medications: Diphenhydramine [Benadryl*] 2 tab PO BEDTIME PRN 04/06/18 Folic Acid 1 mg PO DAILY 04/06/18 Lactulose [Cephulac*] 20 gm PO TID 04/06/18 Midodrine HCl [Proamatine*] 5 mg PO BID 04/06/18 Multivitamin [Multivitamins] 1 each PO DAILY 04/06/18 Mupirocin Oint [Bactroban 2% Ointment*] 1 appl TOP DAILY 04/06/18 Ondansetron HCl [Zofran] 4 mg PO SEECOM PRN 04/06/18 Pantoprazole Sodium [Protonix] 40 mg PO AC 04/06/18 Potassium Chloride [Klor-Con] 20 meq PO DAILY 04/06/18 Rifaximin [Xifaxan] 550 mg PO BID 04/06/18 Thiamine HCl [Vitamin B-1*] 100 mg PO DAILY 04/06/18 Tramadol HCl [Ultram] 50 mg PO Q6H PRN 04/06/18 Bumetanide [Bumex] 1 mg PO DAILY #30 tab 04/07/18 New Medications: Bumetanide [Bumex] 1 mg PO DAILY #30 tab Patient Discharge Instructions: f/up w PCP in 2-3 days. Return to ER for worsening condition Diet: Low sodium (1500 ml fluid restriction) Activity: Ad alina
[2018-04-07] MEDS ORDERED: LACTULOSE 20 GM/30 ML UCUP PO SCH (14:00)
[2018-04-08] MEDS ORDERED: FOLIC ACID 1 MG TABLET PO SCH (09:00)
[2018-04-17 14:42] LABS: Urine Blood NEGATIVE (NEG); Urine Glucose NEGATIVE (NEG); Urine Protein NEGATIVE (NEG); Urine Specific Gravity 1.015 (1.005-1.030); Urine pH 5.5 (5.0-7.0)
== END 2018-04-07 16:12 | disposition home or self-care (01) ==
LOC: ER 14:30 → ERHOLD 18:05 → 2ND 18:45
PROVIDERS: ADMIT Internal Medicine Sleep Medicine; ATTEND Internal Medicine Sleep Medicine
DX: E87.6 Hypokalemia (principal); R00.2 Palpitations; K70.31 Alcoholic cirrhosis of liver with ascites; K21.9 Gastro-esophageal reflux disease without esophagitis; D64.9 Anemia, unspecified; T81.30XA Disruption of wound, unspecified, initial encounter; F17.210 Nicotine dependence, cigarettes, uncomplicated; E83.42 Hypomagnesemia; N17.9 Acute kidney failure, unspecified
CPT/HCPCS: 36415; 71045; 80048; 80076; 80307; 81003; 83735; 85025; 85610; 85730; 87070; 87077; 87186; 87205; 93005; 96365; 96366; 97163; 99284; G0378; J3475

== ENCOUNTER 2018-09-10 14:21 | Inpatient (IN) | payer MEDICAID ==
--- OUTSIDE RECORDS SUMMARY | 2018-09-10 14:26 | XMS REPORT | Clinical Summary ---
:1970 Author Organization [facility] Address [address] [place] [address] Care Team Providers Name Role Phone Alison Kebede MD Primary Care Provider Allergies No Known Allergies Medications Medication Sig Dispensed Refills Start Date End Date Status ondansetron ODT Take 4 mg by 0 Active (ZOFRAN-ODT) 4 MG mouth every disintegrating tablet 8 (eight) hours as needed for nausea or vomiting. ferrous sulfate 325 Take 325 mg 0 Active (65 FE) MG tablet by mouth daily with breakfast. folic acid (FOLVITE) Take 1 mg by 0 Active 1 MG tablet mouth daily. lactulose (CEPHULAC) Take 20 g by 0 Active 20 gram packet mouth 3 (three) times a day. midodrine Take 5 mg by 0 Active (PROAMATINE) 5 MG mouth 3 tablet (three) times a day. nadolol (CORGARD) 20 Take 20 mg 0 Active MG tablet by mouth daily. omeprazole (PriLOSEC) Take 40 mg 0 Active 40 MG capsule by mouth daily. potassium chloride Take 20 mEq 0 Active (KLOR-CON) 20 mEq by mouth 2 packet (two) times a day. BUMETanide (BUMEX) 2 Take 2 mg by 0 08/04/2018 Discontinued MG tablet mouth daily. spironolactone Take 100 mg 0 08/07/2018 Discontinued (ALDACTONE) 100 MG by mouth tablet daily. furosemide (LASIX) 40 Take 40 mg 0 08/07/2018 Discontinued mg tablet by mouth 2 (two) times a day. sodium bicarbonate Take 648 mg 0 08/08/2018 Discontinued 650 mg tablet by mouth 4 (four) times a day. furosemide (LASIX) 40 Take 1 60 tablet 0 08/07/2018 09/06/2018 mg tablet tablet (40 mg total) by mouth 2 (two) times a day for 30 days. spironolactone Take 1 30 tablet 0 08/07/2018 09/06/2018 (ALDACTONE) 100 MG tablet (100 tablet mg total) by mouth daily for 30 days. Active Problems Problem Noted Date Generalized abdominal pain 08/04/2018 Ascites due to alcoholic cirrhosis 08/04/2018 Encounters Date Type Specialty Care Team Description 08/04/2018 - Hospital Encounter General Internal Schaferling, Generalized abdominal pain (Primary Dx); 08/08/2018 Medicine Dorothy Win MD Ascites due to alcoholic cirrhosis (HCC); Torie Lima Intractable pain MD Cj Aguilar, Tom Garner Sr., MD Sanders, Sunny Buchanan MD after 09/09/2017 Social History Tobacco Use Types Packs/Day Years Used Date Current Some Day Smoker 0.5 36 Smokeless Tobacco: Never Used Tobacco Cessation: Ready to Quit: No; Counseling Given: Yes Alcohol Use Drinks/Week oz/Week Comments Yes quit 2 months Alcohol Habits Answer Date Recorded How often do you have a drink containing alcohol? Never 08/04/2018 How many drinks containing alcohol do you have on a typical Not asked day when you are drinking? How often do you have six or more drinks on one occasion? Not asked Sex Assigned at Date Recorded Not on file Job Start Date Occupation Industry Not on file Not on file Not on file Travel History Travel Start Travel End No recent travel history available. Last Filed Vital Signs Vital Sign Reading Time Taken Blood Pressure 109/68 08/08/2018 4:30 PM [facility] Pulse 105 08/08/2018 4:30 PM [facility] Temperature 36.6 C (97.9 F) 08/08/2018 3:40 PM [facility] Respiratory Rate 18 08/08/2018 4:30 PM [facility] Oxygen Saturation 100% 08/08/2018 3:40 PM [facility] Inhaled Oxygen Concentration - - Weight 59 kg (130 lb) 08/04/2018 4:30 AM [facility] Height 167.6 cm (5' 6") 08/04/2018 4:30 AM [facility] Body Mass Index 20.98 08/04/2018 4:30 AM [facility] Plan of Treatment Health Maintenance Due Date Last Done Comments CERVICAL CANCER SCREENING 1990 INFLUENZA VACCINE 03/05/2018 Procedures Procedure Name Priority Date/Time Associated Comments Diagnosis ESTIMATED GFR Routine 08/08/2018 2:25 Results for this PM [facility] procedure are in the results section. BASIC METABOLIC PANEL Routine 08/08/2018 2:25 Results for this PM [facility] procedure are in the results section. US ABDOMINAL Routine 08/08/2018 9:50 Results for this PARACENTESIS IMAGING AM [facility] procedure are in the results section. ESTIMATED GFR Routine 08/07/2018 4:40 Results for this AM [facility] procedure are in the results section. BASIC METABOLIC PANEL Routine 08/07/2018 4:40 Results for this AM [facility] procedure are in the results section. VENOUS BLOOD GAS Routine 08/06/2018 6:42 Results for this PM [facility] procedure are in the results section. US ABDOMINAL Routine 08/06/2018 2:30 Results for this PARACENTESIS IMAGING PM [facility] procedure are in the results section. SMEAR REVIEW Routine 08/06/2018 6:45 Results for this AM [facility] procedure are in the results section. ESTIMATED GFR Routine 08/06/2018 6:45 Results for this AM [facility] procedure are in the results section. LACTIC ACID LEVEL Routine 08/06/2018 6:45 Results for this AM [facility] procedure are in the results section. HC COMPLETE BLD COUNT Routine 08/06/2018 6:45 Results for this W/AUTO DIFF AM [facility] procedure are in the results section. PROTHROMBIN TIME WITH Routine 08/06/2018 6:45 Results for this INR AM [facility] procedure are in the results section. BASIC METABOLIC PANEL Routine 08/06/2018 6:45 Results for this AM [facility] procedure are in the results section. PARTIAL THROMBOPLASTIN Routine 08/06/2018 6:45 Results for this TIME (PTT) AM [facility] procedure are in the results section. LACTIC ACID LEVEL, Timed 08/05/2018 6:00 Results for this SEPSIS - NOW AND REPEAT PM [facility] procedure are in 2X EVERY 3 HOURS the results section. LACTIC ACID LEVEL, Timed 08/05/2018 3:25 Results for this SEPSIS - NOW AND REPEAT PM [facility] procedure are in 2X EVERY 3 HOURS the results section. SMEAR REVIEW Routine 08/05/2018 4:35 Results for this AM [facility] procedure are in the results section. ESTIMATED GFR Routine 08/05/2018 4:35 Results for this AM [facility] procedure are in the results section. AMMONIA LEVEL Routine 08/05/2018 4:35 Results for this AM [facility] procedure are in the results section. BASIC METABOLIC PANEL Routine 08/05/2018 4:35 Results for this AM [facility] procedure are in the results section. HC COMPLETE BLD COUNT Routine 08/05/2018 4:35 Results for this W/AUTO DIFF AM [facility] procedure are in the results section. US ABDOMINAL STAT 08/04/2018 1:35 Results for this PARACENTESIS IMAGING PM [facility] procedure are in the results section. XR CHEST 1 VW PORTABLE STAT 08/04/2018 5:19 Results for this AM [facility] procedure are in the results section. SMEAR REVIEW STAT 08/04/2018 5:00 Results for this AM [facility] procedure are in the results section. AMMONIA LEVEL STAT 08/04/2018 5:00 Results for this AM [facility] procedure are in the results section. ESTIMATED GFR STAT 08/04/2018 5:00 Results for this AM [facility] procedure are in the results section. MAGNESIUM LEVEL STAT 08/04/2018 5:00 Results for this AM [facility] procedure are in the results section. PARTIAL THROMBOPLASTIN STAT 08/04/2018 5:00 Results for this TIME (PTT) AM [facility] procedure are in the results section. PROTHROMBIN TIME WITH STAT 08/04/2018 5:00 Results for this INR AM [facility] procedure are in the results section. HC COMPLETE BLD COUNT STAT 08/04/2018 5:00 Results for this W/AUTO DIFF AM [facility] procedure are in the results section. COMPREHENSIVE METABOLIC STAT 08/04/2018 5:00 Results for this PANEL AM [facility] procedure are in the results section. after 09/09/2017 Results Estimated GFR (08/08/2018 2:25 PM [facility])Only the most recent of5 resultswithin the time period is included. Estimated GFR 59 (A) mL/min/1.73 m2 [facility] Comment: [facility] CatergoryUnitsInterpretation G1 >=90 Normal or high G2 60-89Mildly decreased [id number] to moderately decreased [id number] to severely decreased G4 15-29Severely decreased G5 <15Kidney failure The eGFR was calculated using the Chronic Kidney Disease Epidemiology Collaboration (CKD-EPI) equation. Interpretation is based on recommendations of the National Kidney Foundation-Kidney Disease Outcomes Quality Initiative (NKF-KDOQI) published in 2014. Specimen Plasma specimen Performing Organization Address City/State/Zipcode [place] [address], [address] [place] [address] PATHOLOGY AND GENOMIC S MEDICINE [facility] THE [address] [place] [address] [facility] Basic metabolic panel (08/08/2018 2:25 PM [facility])Only the most recent of4 resultswithin the time period is included. Sodium 139 135 - 148 mEq/L [facility] Potassium 3.7 3.5 - 5.0 mEq/L [facility] Chloride 107 98 - 112 mEq/L [facility] CO2 17 (L) 24 - 31 mEq/L [facility] Anion gap 15 7 - 15 mEq/L [facility] BUN 20 6 - 20 mg/dL [facility] Creatinine 1.10 (H) 0.50 - 0.90 mg/dL [facility] Glucose 105 (H) 65 - 99 mg/dL [facility] Calcium 9.2 8.3 - 10.2 mg/dL [facility] Specimen Plasma specimen Performing Organization Address City/State/[place]code [place] [address], [address] [place] [address] PATHOLOGY AND GENOMIC S MEDICINE [facility] [address] [place] [address] [facility] US Abdominal Paracentesis Imaging (08/08/2018 9:50 AM [facility])Only the most recent of3 resultswithin the time period is included. Narrative Performed At [facility] Ultrasound-guided paracentesis. Clinical Indication Ascites. Anesthesia Lidocaine 1%. Sedation None. Technique Written informed consent was obtained prior to the procedure. The patient was placed in a supine position, and ultrasound imaging over the abdomen was performed, demonstrating a large amount of ascites. The right lower abdomen was sterilely prepared and draped in the routine manner. Lidocaine 1% was used for local anesthetic. Using real-time ultrasound guidance, a 5 Persian Yueh catheter was advanced successfully into the peritoneal cavity with return of cloudy yellow ascites. A total of 5000 mL of fluid was removed. The Yueh catheter was removed and hemostasis was achieved with manual compression. The patient tolerated the procedure well. Complications None. Impression: Successful ultrasound-guided paracentesis with removal of 5000 ml of cloudy yellow ascites. [id number] Procedure Note Hm Interface, Radiology Results Incoming - 08/08/2018 12:03 PM [facility] Procedure Ultrasound-guided paracentesis. Clinical Indication Ascites. Anesthesia Lidocaine 1%. Sedation None. Technique Written informed consent was obtained prior to the procedure. The patient was placed in a supine position, and ultrasound imaging over the abdomen was performed, demonstrating a large amount of ascites. The right lower abdomen was sterilely prepared and draped in the routine manner. Lidocaine 1% was used for local anesthetic. Using real-time ultrasound guidance, a 5 Persian Yueh catheter was advanced successfully into the peritoneal cavity with return of cloudy yellow ascites. A total of 5000 mL of fluid was removed. The Yueh catheter was removed and hemostasis was achieved with manual compression. The patient tolerated the procedure well. Complications None. Impression: Successful ultrasound-guided paracentesis with removal of 5000 ml of cloudy yellow ascites. [facility]-[id number] Performing Organization Address City/[facility] Phone Number [facility] [address] [place] [address] Venous blood gas (08/06/2018 6:42 PM [facility]) pH, venous 7.41 7.32 - 7.42 [facility] pCO2, venous 24 (L) 45 - 51 mmHg [facility] pO2, venous 75 (H) 25 - 40 mmHg [facility] Base excess, venous -9 (L) -2 - 2 meq/L [facility] O2 saturation, venous 95 (H) 40 - 70 % [facility] Bicarbonate, venous 14.5 (L) 21.0 - 28.0 mmol/L [facility] Specimen Blood Performing Organization Address City/[facility] [place] Number [place] [address], [address] [place] [address] PATHOLOGY AND GENOMIC S MEDICINE [facility] THE [address] [place] [address] [facility] Smear review (08/06/2018 6:45 AM [facility])Only the most recent of3 resultswithin the time period is included. Platelet slide review Decreased (A) [facility] Anisocytosis Moderate [facility] Tear drop cells Occasional [facility] Schistocytes Occasional [facility] Spherocytes Occasional [facility] Performing Organization Address City/[facility] Phone Number [facility] DEPARTMENT OF [facility] [place] [address] PATHOLOGY [facility] THE [address] Partial thromboplastin time, activated (08/06/2018 6:45 AM [facility])Only the most recent of2 resultswithin the time period is included. PTT 42.1 (H) 23.0 - 36.0 sec [facility] Comment: [facility] PTT therapeutic range for unfractionated heparin is 61.0-112.0 seconds which corresponds to Anti-Xa 0.3-0.7 U/ml. Specimen Blood Performing Organization Address [facility] Phone Number [facility] DEPARTMENT OF [facility] [address] Prothrombin time with INR (08/06/2018 6:45 AM [facility])Only the most recent of2 resultswithin the time period is included. Prothrombin time 15.2 (H) 11.5 - 14.5 sec [facility] INR 1.2 [facility] Comment: [facility] The International Normalized Ratio (INR) is a therapeutic monitoring tool for patients who are stable on oral anticoagulant therapy. An INR of 2.0-3.0 is suggested for deep vein thrombosis/pulmonary embolism. Specimen Blood Performing Organization Address [facility] Phone Number [facility] DEPARTMENT OF [facility] [address] THE [address] [address] CBC with platelet and differential (08/06/2018 6:45 AM [facility])Only the most recent of3 resultswithin the time period is included. WBC 3.27 (L) 4.50 - 11.00 k/uL [facility] RBC 2.52 (L) 4.20 - 5.50 m/uL [facility] HGB 7.7 (L) 12.0 - 16.0 g/dL [facility] HCT 24.6 (L) 37.0 - 47.0 % [facility] MCV 97.6 82.0 - 100.0 fL [facility] MCH 30.6 27.0 - 34.0 pg [facility] MCHC 31.3 31.0 - 37.0 g/dL [facility] RDW - SD 72.1 (H) 37.0 - 55.0 fL [facility] MPV 10.3 8.8 - 13.2 fL [facility] Platelet count 115 (L) 150 - 400 k/uL [facility] Nucleated RBC 0.00 /100 WBC [facility] Neutrophils 72.2 (H) 39.0 - 69.0 % [facility] Lymphocytes 6.7 (L) 25.0 - 45.0 % [facility] Monocytes 14.4 (H) 0.0 - 10.0 % [facility] Eosinophils 4.9 0.0 - 5.0 % [facility] Basophils 1.5 (H) 0.0 - 1.0 % [facility] Immature granulocytes 0.3Comment: "Immature 0.0 - 1.0 % [facility] granulocytes" [facility] (promyelocytes, myelocytes, metamyelocytes) Specimen Blood Performing Organization Address City/[facility] Phone Number [place] [id number], [address] [place] [address] PATHOLOGY AND [employer] S MEDICINE [facility] THE [address] Lactic acid level (08/06/2018 6:45 AM [facility]) Lactic acid 1.6 0.5 - 2.2 mmol/L [facility] Specimen Plasma specimen Performing Organization Address City/[facility] Phone Number [place] [address], [address] [place] [address] PATHOLOGY AND GENOMIC S MEDICINE [facility] THE [address] [place] [id number] Lactic acid level, SEPSIS - Now and repeat 2x every 3 hours (08/05/2018 6:00 PM [facility])Only the most recent of2 resultswithin the time period is included. Lactic acid 1.5 0.5 - 2.2 mmol/L [facility] Specimen Plasma specimen Performing Organization Address City/State/Zipcode Phone Number [facility] [place] [address], [address] [place] [address] PATHOLOGY AND GENOMIC S MEDICINE [facility] THE [address] [place] [address] [facility] Ammonia level (08/05/2018 4:35 AM [facility])Only the most recent of2 resultswithin the time period is included. Ammonia 276 (H) 11 - 51 umol/L [facility] Specimen Blood Performing Organization Address [facility] Phone Number [facility] [place] [address], [address] [place] [address] PATHOLOGY AND GENOMIC S MEDICINE [facility] THE [address] [place] [address] [facility] XR Chest 1 Vw Portable (08/04/2018 5:19 AM [facility]) Narrative Performed At Examination:XR CHEST 1 VW PORTABLE [facility] Clinical History:sob Comparison: None. Technique: Single frontal view of the chest is obtained. Findings: Low lung volume with vascular crowding is noted. The heart size is normal. No pleural effusion is seen. Impression: Low lung volume but no acute infiltrate. [facility]-[id number] Procedure Note Hm Interface, Radiology Results Incoming - 08/04/2018 5:46 AM [facility] Examination: XR CHEST 1 VW PORTABLE Clinical History: sob Comparison: None. Technique: Single frontal view of the chest is obtained. Findings: Low lung volume with vascular crowding is noted. The heart size is normal. No pleural effusion is seen. Impression: Low lung volume but no acute infiltrate. [id number] Performing Organization Address City/[facility]/Zipcode Phone Number [facility] [address] [place] [address] Magnesium level (08/04/2018 5:00 AM [facility]) Magnesium 1.9 1.6 - 2.6 mg/dL [facility] Specimen Plasma specimen Performing Organization Address City/[facility]/Zipcode Phone Number [facility] [place] [address], [address] [place] [address] PATHOLOGY AND GENOMIC S MEDICINE [facility] THE [address] [place] [address] [facility] Comprehensive metabolic panel (08/04/2018 5:00 AM [facility]) Sodium 137 135 - 148 mEq/L [facility] Potassium 3.8 3.5 - 5.0 mEq/L [facility] Chloride 109 98 - 112 mEq/L [facility] CO2 13 (LL) 24 - 31 mEq/L [facility] Comment: [facility] CO2 Results called to and read back by FISH VIEYRA RN/ED at [id number] by ROXANNA. Anion gap 15 7 - 15 mEq/L [facility] BUN 23 (H) 6 - 20 mg/dL [facility] Creatinine 1.65 (H) 0.50 - 0.90 mg/dL [facility] Glucose 94 65 - 99 mg/dL [facility] Calcium 8.6 8.3 - 10.2 mg/dL [facility] Protein 7.0 6.3 - 8.3 g/dL [facility] Comment: [facility] Stigler 4.6-7.0 g/dL 1 week 4.4-7.6 g/dL 7 months-1year5.1-7.3 g/dL 1-2 years5.6-7.5 g/dL >3 years6.0-8.0 g/dL 18-150 6.3-8.3 g/dL Albumin 3.1 (L) 3.5 - 5.0 g/dL [facility] A/G ratio 0.8 0.7 - 3.8 [facility] Alkaline phosphatase 147 (H) 35 - 104 U/L [facility] AST 66 (H) 10 - 35 U/L [facility] ALT 36 5 - 50 U/L [facility] Total bilirubin 1.0 0.0 - 1.2 mg/dL [facility] Specimen Plasma specimen Performing Organization Address City/State/[place]code [place] [address], [address] [place] [address] PATHOLOGY AND GENOMIC S MEDICINE [facility] THE [address] [place] [address] [facility] after 09/09/2017 Insurance Payer Benefit Plan / Group Subscriber ID Type Phone Address GARCIA GARCIA [employer] xxxxxxxxx HMO Advance Directives Patient has advance care planning documents on file. For more information, please contact:Keith Mcwilliams[address] [place] [address]
--- OUTSIDE RECORDS SUMMARY | 2018-09-10 14:27 | XMS REPORT | Clinical Summary ---
:[address] [facility] Address [address] [place] [address] Care Team Providers Name Role Phone Tray Leigh Primary Care Provider Allergies No Known Allergies Medications Medication Sig Dispensed Refills Start Date End Date Status ondansetron (ZOFRAN) TK 1 T PO Q 8 0 11/05/2017 Active 4 MG tablet H PRN sodium bicarbonate Take 650 mg 0 Active 325 MG tablet by mouth 2 (two) times daily . potassium chloride Take 20 mEq 0 Active (KLOR-CON) 20 mEq by mouth packet daily. nadolol (CORGARD) 20 Take 20 mg by 0 Active MG tablet mouth daily. ferrous sulfate 134 Take 134 mg 0 Active mg (27 mg iron) Tab by mouth daily. folic acid (FOLVITE) Take 1 mg by 0 Active 1 MG tablet mouth daily. furosemide (LASIX) Take 40 mg by 0 Active 40 MG tablet mouth daily. lactulose (CEPHULAC) Take 20 g by 0 Active 20 gram packet mouth 3 (three) times daily. multivitamin per Take 1 tablet 0 Active tablet by mouth daily. omeprazole Take 40 mg by 0 Active (PRILOSEC) 40 MG mouth 2 (two) capsule times daily. midodrine TWICE DAILY 0 10/22/2017 Active (PROAMATINE) 5 MG tablet pantoprazole DAILY 0 10/22/2017 Active (PROTONIX) 40 MG tablet spironolactone Take 100 mg 0 Active (ALDACTONE) 100 MG by mouth 2 tablet (two) times daily. bumetanide (BUMEX) 2 Take 2 mg by 0 Active MG tablet mouth daily. rifAXIMin 550 mg Tab Take 1 tablet 60 tablet 0 05/27/2018 Active (550 mg total) by mouth 2 (two) times daily. ibuprofen Take 200 mg 0 11/27/2017 Discontinued (ADVIL,MOTRIN) 200 by mouth MG tablet every 6 (six) hours as needed for Pain. UNKNOWN Water Pill 0 11/27/2017 Discontinued omeprazole TAKE ONE 2 09/09/2017 [...] aspirin 81 MG Take 81 mg by 0 02/10/2018 Discontinued chewable tablet mouth daily. traMADol (ULTRAM) 50 Take 1 tablet 30 tablet 0 02/15/2018 02/25/2018 mg tablet (50 mg total) by mouth every 6 (six) hours as needed for Pain for up to 10 days. Max Daily Amount: 200 mg ondansetron (ZOFRAN) EVERY TWELVE 0 10/20/2017 05/27/2018 Discontinued 4 MG tablet HOURS NEEDED rifAXIMin 550 mg Tab Take 1 tablet 60 tablet 0 05/27/2018 05/27/2018 Discontinued (550 mg total) by mouth 2 (two) times daily. Active Problems Problem Noted Date Hepatic encephalopathy 05/23/2018 s/p incisional hernia repair 02/11/2018 suspected Spontaneous bacterial peritonitis 02/11/2018 Thrombocytopenia due to sequestration 02/11/2018 Acute pain 02/11/2018 Melena 02/10/2018 Acute hepatic encephalopathy 02/10/2018 Acute blood loss anemia 02/10/2018 Acute upper GI bleed 02/10/2018 Acute renal failure (ARF) 02/10/2018 Ascites 11/27/2017 Last Assessment & Plan: Last paracentesis on 10/28/17. Patient has required paracentesis every 1 to 1.5 weeks. Alcoholic cirrhosis of liver with ascites 11/27/2017 Last Assessment & Plan: Cirrhosis based [...] [facility]. Portal hypertension 11/27/2017 Last Assessment & Plan: Portal hypertension is evidenced by gastric and esophageal varices seen on EGD and CT scan 10/21/17 and splenomegaly. Hypertension Liver disorder Encounters Date Type Specialty Care Team Description 07/24/2018 Hospital Encounter Radiology [facility], No Show MD Alison 07/09/2018 Hospital Encounter Radiology System, No Show Provider Not In 06/21/2018 Outside Orders Central Scheduling System, Alcoholic cirrhosis of liver with ascites (HCC) (Primary Dx); Provider Not Other ascites In 06/13/2018 Telephone Case Management [facility] Enriqueta D, encephalopathy RN (Social Work Follow-up Call / CM - Transition Care Team ) 06/12/2018 Telephone Lily Smith, RN encephalopathy (#4 call- final attempt of 7day call) 06/12/2018 Telephone Lily Smith, RN encephalopathy (#3 call- 2nd attempt of 7day f/u call) 06/10/2018 Telephone Lily Smith, RN encephalopathy (#2 call- 7day f/u call 1st attempt) 06/02/2018 Telephone Case Management [place], Liver Cirrhosis Enriqueta D, (Social Work fruit dryer / CM - Transition Care Team ) 06/02/2018 Telephone Case Management [facility], Liver Cirrhosis Enriqueta D, (Social Work fruit dryer / CM - Transition Care Team ) 05/30/2018 Telephone Case Management [place], Liver Cirrhosis Enriqueta D, (Social Work fruit dryer / CM - Transition Care Team ) 05/30/2018 Telephone Case Management [facility], Liver Cirrhosis Enriqueta D, (Social Work housing grant analyst/ CM - Transition Care Team ) 05/29/2018 Telephone Lily Smith liver cirrhosis (#1 M, RN call- 24-48hr f/u call) 05/23/2018 Hospital Encounter General Internal [place], Hepatic encephalopathy (HCC) (Primary Dx); - Medicine Gilberto Anemia, unspecified type; 05/27/2018 MD John Hypokalemia; Hopkins, Melo Acute renal failure, unspecified acute renal failure type ( HCC); MD Kate Elevated LFTs; Chelsie, Acute blood loss anemia; Enriqueta Moore, Acute hepatic encephalopathy; Acute pain 05/23/2018 Orders Only General Internal Medicine 05/23/2018 Telephone Radiology Arianne Farmer RN 02/11/2018 Anesthesia Event Roxy Anderson MD 02/11/2018 Surgery Tamera Mayorga HERNIORRHAPHY,UMBILIC FMD [place] 02/10/2018 Anesthesia Event Gastroenterology Rafael Almaguer MD 02/10/2018 Surgery Gastroenterology Raul, UPPER ENDOSCOPY Bonnie Buchanan MD 02/10/2018 Hospital Encounter General Internal Naresh Alvarado Alcoholic cirrhosis of liver with ascites (HCC); - Medicine MD Kavya Acute blood loss anemia; 02/15/2018 Lino, Acute hepatic encephalopathy; Lionel Brady, Acute renal failure, unspecified acute renal failure type (HCC); Acute upper GI bleed; Other ascites; Umbilical hernia with obstruction; Ascites due to alcoholic cirrhosis (HCC); Portal hypertension (HCC); Umbilical hernia with gangrene; Incarcerated umbilical hernia; Acute renal failure with tubular necrosis (HCC); Hypovolemia; Thrombocytopenia due to sequestration (HCC) 02/10/2018 Orders Only General Internal Medicine 02/09/2018 Telephone Critical Care Naresh Alvarado GI Bleeding Loreto Hoff MD 12/06/2017 Documentation Transplant Hepatology Mona Newman RN 12/06/2017 Abstract Transplant Hepatology Mona Newman RN 11/28/2017 Abstract Transplant Hepatology Tim Riley MD 11/27/2017 Office Visit Hepatology Ugo Doss Alcoholic cirrhosis of liver with ascites (HCC) (Primary Dx); MD Ant Other ascites; Screening for malignant neoplasm; Immunity status testing; Portal hypertension (HCC) after 09/09/2017 Social History Tobacco Use Types [...] Vital Sign Reading Time Taken Blood Pressure 122/71 05/27/2018 3:43 PM CDT Pulse 94 05/27/2018 3:43 PM CDT Temperature 37.1 C (98.7 F) 05/27/2018 3:43 PM CDT Respiratory Rate 19 05/27/2018 3:43 PM CDT Oxygen Saturation 100% 05/27/2018 3:43 PM CDT Inhaled Oxygen Concentration 22.5% 02/10/2018 12:43 PM CDT Weight 55.8 kg (123 lb) 05/23/2018 11:00 PM CDT Height 167.6 cm (5' 6") 05/23/2018 11:00 PM CDT Body Mass Index 19.85 05/23/2018 11:00 PM CDT Plan of Treatment Health Maintenance Due Date Last Done Comments INFLUENZA VACCINE 05/05/2018 Procedures Procedure Name Priority Date/Time Associated Comments Diagnosis BASIC METABOLIC PANEL Routine 05/27/2018 2:39 Results for this (7) AM CDT procedure are in the results section. TRANSFUSION SERVICE 05/26/2018 6:12 REPORT - SCAN PM CDT US PARACENTESIS Routine 05/26/2018 3:49 Results for this PM CDT procedure are in the results section. BODY FLUID CULTURE + STAT 05/26/2018 3:20 Results for this GRAM STAIN PM CDT procedure are in the results section. BODY FLUID CELL COUNT STAT 05/26/2018 3:20 Results for this WITH DIFFERENTIAL PM CDT procedure are in the results section. AMMONIA Routine 05/26/2018 5:16 Results for this AM CDT procedure are in the results section. MAGNESIUM Routine 05/26/2018 5:16 Results for this AM CDT procedure are in the results section. COMPREHENSIVE Routine 05/26/2018 5:16 Results for this METABOLIC PANEL AM CDT procedure are in the results section. POTASSIUM Routine 05/26/2018 5:16 Results for this AM CDT procedure are in the results section. PREPARE LEUKO-REDUCED Routine 05/25/2018 11:54 Results for this RBC PM CDT procedure are in the results section. TRANSFUSION SERVICE 05/25/2018 6:02 REPORT - SCAN PM CDT CBC W/PLT COUNT & AUTO Routine 05/25/2018 3:49 Results for this DIFFERENTIAL AM CDT procedure are in the results section. CBC W/PLT COUNT & AUTO Routine 05/25/2018 3:49 Results for this DIFFERENTIAL AM CDT procedure are in the results section. BASIC METABOLIC PANEL Routine 05/25/2018 3:49 Results for this (7) AM CDT procedure are in the results section. TRANSFUSE Routine 05/25/2018 12:17 LEUKO-REDUCED RED AM CDT BLOOD CELLS TRANSFUSE Routine 05/24/2018 7:01 LEUKO-REDUCED RED PM CDT BLOOD CELLS CREATININE, RANDOM Routine 05/24/2018 1:38 Results for this URINE PM CDT procedure are in the results section. SODIUM, RANDOM URINE Routine 05/24/2018 1:38 Results for this PM CDT procedure are in the results section. OCCULT BLOOD, STOOL STAT 05/24/2018 1:38 Results for this PM CDT procedure are in the results section. TYPE AND SCREEN, Routine 05/24/2018 1:36 Results for this AUTOMATED PM CDT procedure are in the results section. ALPHA FETOPROTEIN Routine 05/24/2018 1:36 Results for this (AFP), TUMOR MARKER PM CDT procedure are in the results section. HEPATITIS PANEL, ACUTE Routine 05/24/2018 1:36 Results for this PM CDT procedure are in the results section. US RENAL COMPLETE Routine 05/24/2018 11:37 Results for this AM CDT procedure are in the results section. CBC W/PLT COUNT & AUTO Routine 05/24/2018 4:26 Results for this DIFFERENTIAL AM CDT procedure are in the results section. CBC W/PLT COUNT & AUTO Routine 05/24/2018 4:26 Results for this DIFFERENTIAL AM CDT procedure are in the results section. BASIC METABOLIC PANEL Routine 05/24/2018 4:26 Results for this (7) AM CDT procedure are in the results section. BASIC METABOLIC PANEL STAT 05/23/2018 6:36 Results for this (7) PM CDT procedure are in the results section. CT BRAIN WITHOUT IV STAT 05/23/2018 5:55 Results for this CONTRAST PM CDT procedure are in the results section. US PARACENTESIS STAT 05/23/2018 5:50 Results for this PM CDT procedure are in the results section. XR CHEST 1 VIEW STAT 05/23/2018 4:25 Results for this PORTABLE/BEDSIDE PM CDT procedure are in the results section. ECG 12-LEAD Routine 05/23/2018 3:52 PM CDT Procedure Note - Interface, External Ris In - 05/23/2018 3:52 PM CDT Ventricular Rate 98 BPM Atrial Rate 98 BPM P-R Interval 136 ms QRS Duration 74 ms Q-T Interval 434 ms QTC Calculation(Bazett) 554 ms P [place] 71 degrees R [place] 36 degrees T [place] 61 degrees Normal sinus rhythm Nonspecific ST abnormality Prolonged QT Abnormal ECG No previous ECGs available ECG 12-LEAD STAT 05/23/2018 3:52 Results for this PM CDT procedure are in the results section. URINALYSIS W/ STAT 05/23/2018 3:47 Results for this MICROSCOPIC PM CDT procedure are in the results section. URINE CULTURE STAT 05/23/2018 3:47 Results for this PM CDT procedure are in the results section. PROTHROMBIN TIME/INR STAT 05/23/2018 3:40 Results for this PM CDT procedure are in the results section. BLOOD CULTURE STAT 05/23/2018 3:39 Results for this PM CDT procedure are in the results section. CBC W/PLT COUNT & STAT 05/23/2018 3:38 Results for this AUTO DIFFERENTIAL PM CDT procedure are in the results section. LIPASE STAT 05/23/2018 3:38 Results for this PM CDT procedure are in the results section. LACTIC ACID, VENOUS, STAT 05/23/2018 3:38 Results for this WHOLE BLOOD PM CDT procedure are in the results section. COMPREHENSIVE STAT 05/23/2018 3:38 Results for this METABOLIC PANEL PM CDT procedure are in the results section. CBC W/PLT COUNT & STAT 05/23/2018 3:38 Results for this AUTO DIFFERENTIAL PM CDT procedure are in the results section. AMMONIA STAT 05/23/2018 3:38 Results for this PM CDT procedure are in the results section. BLOOD CULTURE STAT 05/23/2018 3:24 Results for this PM CDT procedure are in the results section. RHYTHM STRIP - SCAN 02/18/2018 10:30 AM CDT TRANSFUSION SERVICE 02/15/2018 5:50 REPORT - SCAN PM CDT POCT-GLUCOSE METER Routine 02/15/2018 11:14 Results for this AM CDT procedure are in the results section. POCT-GLUCOSE METER Routine 02/15/2018 8:48 Results for this AM CDT procedure are in the results section. CBC W/PLT COUNT & Routine 02/15/2018 5:05 Results for this AUTO DIFFERENTIAL AM CDT procedure are in the results section. BASIC METABOLIC PANEL Routine 02/15/2018 5:05 Results for this (7) AM CDT procedure are in the results section. CBC (HEMOGRAM ONLY) Routine 02/15/2018 5:05 Results for this AM CDT procedure are in the results section. PHOSPHORUS Routine 02/15/2018 5:05 Results for this AM CDT procedure are in the results section. MAGNESIUM Routine 02/15/2018 5:05 Results for this AM CDT procedure are in the results section. HEPATIC FUNCTION Routine 02/15/2018 5:05 Results for this PANEL AM CDT procedure are in the results section. CBC W/PLT COUNT & Routine 02/15/2018 5:05 Results for this AUTO DIFFERENTIAL AM CDT procedure are in the results section. PREPARE LEUKO-REDUCED Routine 02/14/2018 11:54 Results for this RBC PM CDT procedure are in the results section. POCT-GLUCOSE METER Routine 02/14/2018 9:30 Results for this PM CDT procedure are in the results section. POCT-GLUCOSE METER Routine 02/14/2018 6:07 Results for this PM CDT procedure are in the results section. TRANSFUSION SERVICE 02/14/2018 5:50 REPORT - SCAN PM CDT US PARACENTESIS Routine 02/14/2018 5:06 Results for this PM CDT procedure are in the results section. BODY FLUID CULTURE + Routine 02/14/2018 5:00 Results for this GRAM STAIN PM CDT procedure are in the results section. BODY FLUID CELL COUNT Routine 02/14/2018 5:00 Results for this WITH DIFFERENTIAL PM CDT procedure are in the results section. APTT Routine 02/14/2018 3:12 Results for this PM CDT procedure are in the results section. PROTHROMBIN TIME/INR IVANA 02/14/2018 3:12 Results for this PM CDT procedure are in the results section. CBC W/PLT COUNT & IVANA 02/14/2018 2:39 Results for this AUTO DIFFERENTIAL PM CDT procedure are in the results section. CBC W/PLT COUNT & IVANA 02/14/2018 2:39 Results for this AUTO DIFFERENTIAL PM CDT procedure are in the results section. POCT-GLUCOSE METER Routine 02/14/2018 12:50 Results for this PM CDT procedure are in the results section. CBC W/PLT COUNT & Routine 02/14/2018 8:44 Results for this AUTO DIFFERENTIAL AM CDT procedure are in the results section. CBC W/PLT COUNT & Routine 02/14/2018 8:44 Results for this AUTO DIFFERENTIAL AM CDT procedure are in the results section. POCT-GLUCOSE METER Routine 02/14/2018 7:54 Results for this AM CDT procedure are in the results section. PHOSPHORUS Routine 02/14/2018 6:00 Results for this AM CDT procedure are in the results section. MAGNESIUM Routine 02/14/2018 6:00 Results for this AM CDT procedure are in the results section. HEPATIC FUNCTION Routine 02/14/2018 6:00 Results for this PANEL AM CDT procedure are in the results section. POCT-GLUCOSE METER Routine 02/13/2018 10:51 Results for this PM CDT procedure are in the results section. TRANSFUSION SERVICE 02/13/2018 6:00 REPORT - SCAN PM CDT POCT-GLUCOSE METER Routine 02/13/2018 5:23 Results for this PM CDT procedure are in the results section. TRANSFUSE Routine 02/13/2018 3:02 LEUKO-REDUCED RED PM CDT BLOOD CELLS POCT-GLUCOSE METER Routine 02/13/2018 11:37 Results for this AM CDT procedure are in the results section. POCT-GLUCOSE METER Routine 02/13/2018 8:11 Results for this AM CDT procedure are in the results section. CBC W/PLT COUNT & Routine 02/13/2018 5:16 Results for this AUTO DIFFERENTIAL AM CDT procedure are in the results section. COMPREHENSIVE Routine 02/13/2018 5:16 Results for this METABOLIC PANEL AM CDT procedure are in the results section. PHOSPHORUS Routine 02/13/2018 5:16 Results for this AM CDT procedure are in the results section. MAGNESIUM Routine 02/13/2018 5:16 Results for this AM CDT procedure are in the results section. HEPATIC FUNCTION Routine 02/13/2018 5:16 Results for this PANEL AM CDT procedure are in the results section. CBC W/PLT COUNT & Routine 02/13/2018 5:16 Results for this AUTO DIFFERENTIAL AM CDT procedure are in the results section. PREPARE RBC STAT 02/12/2018 11:54 Results for this PM CDT procedure are in the results section. TRANSFUSION SERVICE 02/12/2018 6:01 REPORT - SCAN PM CDT POCT-GLUCOSE METER Routine 02/12/2018 8:12 Results for this AM CDT procedure are in the results section. CBC W/PLT COUNT & Routine 02/12/2018 5:29 Results for this AUTO DIFFERENTIAL AM CDT procedure are in the results section. PHOSPHORUS Routine 02/12/2018 5:29 Results for this AM CDT procedure are in the results section. MAGNESIUM Routine 02/12/2018 5:29 Results for this AM CDT procedure are in the results section. HIV-1 ANTIGEN WITH Routine 02/12/2018 5:29 Results for this HIV-1/2 ANTIBODY AM CDT procedure are in the results section. BASIC METABOLIC PANEL Routine 02/12/2018 5:29 Results for this (7) AM CDT procedure are in the results section. HEPATIC FUNCTION Routine 02/12/2018 5:29 Results for this PANEL AM CDT procedure are in the results section. CBC W/PLT COUNT & Routine 02/12/2018 5:29 Results for this AUTO DIFFERENTIAL AM CDT procedure are in the results section. POCT-GLUCOSE METER Routine 02/11/2018 11:55 Results for this PM CDT procedure are in the results section. TRANSFUSION SERVICE 02/11/2018 6:02 REPORT - SCAN PM CDT CBC W/PLT COUNT & STAT 02/11/2018 3:47 Results for this AUTO DIFFERENTIAL PM CDT procedure are in the results section. PHOSPHORUS Routine 02/11/2018 3:47 Results for this PM CDT procedure are in the results section. MAGNESIUM Routine 02/11/2018 3:47 Results for this PM CDT procedure are in the results section. PT/APTT Routine 02/11/2018 3:47 Results for this PM CDT procedure are in the results section. BASIC METABOLIC PANEL STAT 02/11/2018 3:47 Results for this (7) PM CDT procedure are in the results section. CBC W/PLT COUNT & STAT 02/11/2018 3:47 Results for this AUTO DIFFERENTIAL PM CDT procedure are in the results section. TISSUE EXAM AP Routine 02/11/2018 1:38 Results for this PM CDT procedure are in the results section. AFB CULTURE + SMEAR Routine 02/11/2018 1:34 Results for this PM CDT procedure are in the results section. ANAEROBIC CULTURE Routine 02/11/2018 1:34 Results for this PM CDT procedure are in the results section. SURGICALLY OBTAINED Routine 02/11/2018 1:34 Results for this CULTURE + GRAM STAIN PM CDT procedure are in the results section. FUNGUS CULTURE + Routine 02/11/2018 1:34 Results for this SMEAR PM CDT procedure are in the results section. SPIN/CONCENTRATION Routine 02/11/2018 1:34 Results for this CHARGE PM CDT procedure are in the results section. HGB/HCT (H&H) - STAT STAT 02/11/2018 1:21 Results for this LAB PM CDT procedure are in the results section. GLUCOSE-STAT LAB STAT 02/11/2018 1:21 Results for this PM CDT procedure are in the results section. POTASSIUM-STAT LAB STAT 02/11/2018 1:21 Results for this PM CDT procedure are in the results section. SODIUM NA-STAT LAB STAT 02/11/2018 1:21 Results for this PM CDT procedure are in the results section. CALCIUM, IONIZED STAT 02/11/2018 1:21 Results for this PM CDT procedure are in the results section. TRANSFUSE Routine 02/11/2018 12:47 LEUKO-REDUCED RED PM CDT BLOOD CELLS PLACEMENT,WOUND VAC 02/11/2018 11:30 Incarcerated AM CDT umbilical hernia Special Needs (INCISIONAL WOUND VAC, PATIENT HAS CIRRHOSIS) HERNIORRHAPHY,UMBILICAL 02/11/2018 11:30 AM CDT Incarcerated umbilical hernia Special Needs (INCISIONAL WOUND VAC, PATIENT HAS CIRRHOSIS) POCT-GLUCOSE METER Routine 02/11/2018 7:43 Results for this AM CDT procedure are in the results section. US ABDOMEN COMPLETE IVANA 02/11/2018 6:57 Results for this AM CDT procedure are in the results section. CBC W/PLT COUNT & Routine 02/11/2018 5:32 Results for this AUTO DIFFERENTIAL AM CDT procedure are in the results section. PT/APTT Routine 02/11/2018 5:32 Results for this AM CDT procedure are in the results section. CBC W/PLT COUNT & Routine 02/11/2018 5:32 Results for this AUTO DIFFERENTIAL AM CDT procedure are in the results section. COMPREHENSIVE Routine 02/11/2018 5:32 Results for this METABOLIC PANEL AM CDT procedure are in the results section. POCT-GLUCOSE METER Routine 02/11/2018 12:45 Results for this AM CDT procedure are in the results section. CT ABDOMEN/PELVIS Routine 02/11/2018 12:01 Results for this WITHOUT IV CONTRAST AM CDT procedure are in the results section. POTASSIUM Routine 02/10/2018 9:04 Results for this PM CDT procedure are in the results section. PROTEIN, RANDOM URINE STAT 02/10/2018 6:15 Results for this PM CDT procedure are in the results section. CREATININE, RANDOM STAT 02/10/2018 6:15 Results for this URINE PM CDT procedure are in the results section. SODIUM, RANDOM URINE STAT 02/10/2018 6:15 Results for this PM CDT procedure are in the results section. SCREEN, IVANA 02/10/2018 6:14 Results for this URINE PM CDT procedure are in the results section. POCT-GLUCOSE METER Routine 02/10/2018 6:06 Results for this PM CDT procedure are in the results section. REPORT OF PROCEDURE - 02/10/2018 4:35 ENDOSCOPY URL PM CDT POTASSIUM STAT 02/10/2018 1:09 Results for this PM CDT procedure are in the results section. CBC (HEMOGRAM ONLY) STAT 02/10/2018 1:09 Results for this PM CDT procedure are in the results section. UPPER ENDOSCOPY 02/10/2018 12:00 Gastrointestinal PM CDT hemorrhage, unspecified gastrointestinal hemorrhage type POCT-GLUCOSE METER Routine 02/10/2018 11:46 Results for this AM CDT procedure are in the results section. POCT-GLUCOSE METER Routine 02/10/2018 6:45 Results for this AM CDT procedure are in the results section. CBC (HEMOGRAM ONLY) STAT 02/10/2018 6:35 Results for this AM CDT procedure are in the results section. URINALYSIS W/ REFLEX STAT 02/10/2018 4:08 Results for this URINE CULTURE AM CDT procedure are in the results section. RAPID DRUG SCREEN, STAT 02/10/2018 4:08 Results for this URINE AM CDT procedure are in the results section. ECG 12-LEAD Routine 02/10/2018 2:05 Results for this AM CDT procedure are in the results section. ECG 12-LEAD Routine 02/10/2018 2:05 AM CDT Procedure Note - Interface, External Ris In - 02/10/2018 4:08 AM CDT Ventricular Rate 84 BPM Atrial Rate 84 BPM P-R Interval 138 ms QRS Duration 70 ms Q-T Interval 436 ms QTC Calculation(Bazett) 515 ms P [place] 94 degrees R [place] 24 degrees T [place] 27 degrees Normal sinus rhythm Low voltage QRS Septal infarct (cited on or before 10-FEB-2018) Abnormal ECG When compared with ECG of 10-FEB-2018 02:05, Sinus rhythm has replaced Junctional rhythm ECG 12-LEAD Routine 02/10/2018 2:05 AM CDT Procedure Note - Interface, External Ris In - 02/10/2018 4:08 AM CDT Ventricular Rate 87 BPM Atrial Rate 39 BPM QRS Duration 64 ms Q-T Interval 430 ms QTC Calculation(Bazett) 517 ms R [place] 30 degrees T [place] 20 degrees Accelerated Junctional rhythm Septal infarct , age undetermined Abnormal ECG When compared with ECG of 10-FEB-2018 02:04, Previous ECG has undetermined rhythm, needs review ECG 12-LEAD STAT 02/10/2018 2:05 AM CDT ECG 12-LEAD Routine 02/10/2018 2:04 AM CDT Procedure Note - Interface, External Ris In - 02/10/2018 4:07 AM CDT Ventricular Rate 0 BPM Atrial Rate 0 BPM QRS Duration 0 ms Q-T Interval 0 ms QTC Calculation(Bazett) 0 ms R [place] 0 degrees T [place] 0 degrees No QRS complexes found, no ECG analysis possible No previous ECGs available BLOOD CULTURE STAT 02/10/2018 2:01 AM Results for this CDT procedure are in the results section. BLOOD GAS, VENOUS STAT 02/10/2018 2:00 AM Results for this CDT procedure are in the results section. BLOOD CULTURE STAT 02/10/2018 1:56 AM Results for this CDT procedure are in the results section. CBC W/PLT COUNT & AUTO STAT 02/10/2018 1:54 AM Results for this DIFFERENTIAL CDT procedure are in the results section. TYPE AND SCREEN, STAT 02/10/2018 1:54 AM Results for this AUTOMATED CDT procedure are in the results section. ETHANOL STAT 02/10/2018 1:54 AM Results for this CDT procedure are in the results section. AMMONIA STAT 02/10/2018 1:54 AM Results for this CDT procedure are in the results section. TROPONIN I STAT 02/10/2018 1:54 AM Results for this CDT procedure are in the results section. CREATINE KINASE (CK), STAT 02/10/2018 1:54 AM Results for this TOTAL AND MB CDT procedure are in the results section. LIPASE STAT 02/10/2018 1:54 AM Results for this CDT procedure are in the results section. FIBRINOGEN STAT 02/10/2018 1:54 AM Results for this CDT procedure are in the results section. APTT STAT 02/10/2018 1:54 AM Results for this CDT procedure are in the results section. PROTHROMBIN TIME/INR STAT 02/10/2018 1:54 AM Results for this CDT procedure are in the results section. LACTIC ACID, VENOUS, STAT 02/10/2018 1:54 AM Results for this WHOLE BLOOD CDT procedure are in the results section. HEPATIC FUNCTION PANEL STAT 02/10/2018 1:54 AM Results for this CDT procedure are in the results section. PHOSPHORUS STAT 02/10/2018 1:54 AM Results for this CDT procedure are in the results section. MAGNESIUM STAT 02/10/2018 1:54 AM Results for this CDT procedure are in the results section. BASIC METABOLIC PANEL STAT 02/10/2018 1:54 AM Results for this (7) CDT procedure are in the results section. CBC W/PLT COUNT & AUTO STAT 02/10/2018 1:54 AM Results for this DIFFERENTIAL CDT procedure are in the results section. CBC W/PLT COUNT & AUTO Routine 11/27/2017 1:34 PM Alcoholic Results for this DIFFERENTIAL CDT cirrhosis of liver procedure are in with ascites (HCC) the results section. LÓPEZ TITER AND PATTERN Routine 11/27/2017 1:34 PM Alcoholic Results for this CDT cirrhosis of liver procedure are in with ascites (HCC) the results section. ALPHA FETOPROTEIN Routine 11/27/2017 1:34 PM Other ascites Results for this (AFP), TUMOR MARKER CDT procedure are in the results section. MITOCHONDRIA M2 Routine 11/27/2017 1:34 PM Alcoholic Results for this ANTIBODY (IGG) CDT cirrhosis of liver procedure are in with ascites (HCC) the results section. ACTIN (SMOOTH MUSCLE) Routine 11/27/2017 1:34 PM Alcoholic Results for this ANTIBODY, IGG CDT cirrhosis of liver procedure are in with ascites (HCC) the results section. ANTI-NUCLEAR ANTIBODY Routine 11/27/2017 1:34 PM Alcoholic Results for this (LÓPEZ) CDT cirrhosis of liver procedure are in with ascites (HCC) the results section. CERULOPLASMIN Routine 11/27/2017 1:34 PM Alcoholic Results for this CDT cirrhosis of liver procedure are in with ascites (HCC) the results section. [id number]\\, Routine 11/27/2017 1:34 PM Alcoholic Results for this SERUM CDT cirrhosis of liver procedure are in with ascites (HCC) the results section. FERRITIN Routine 11/27/2017 1:34 PM Alcoholic Results for this CDT cirrhosis of liver procedure are in with ascites (HCC) the results section. IRON, TIBC, % SAT. Routine 11/27/2017 1:34 PM Alcoholic Results for this (WITHOUT FERRITIN) CDT cirrhosis of liver procedure are in with ascites (HCC) the results section. HEPATITIS C ANTIBODY Routine 11/27/2017 1:34 PM Alcoholic Results for this CDT cirrhosis of liver procedure are in with ascites (HCC) the results section. HEPATITIS B CORE Routine 11/27/2017 1:34 PM Alcoholic Results for this ANTIBODY, TOTAL CDT cirrhosis of liver procedure are in with ascites (HCC) the results section. HEPATITIS B SURFACE Routine 11/27/2017 1:34 PM Alcoholic Results for this ANTIBODY CDT cirrhosis of liver procedure are in with ascites (HCC) the results section. HEPATITIS B SURFACE Routine 11/27/2017 1:34 PM Alcoholic Results for this ANTIGEN CDT cirrhosis of liver procedure are in with ascites (HCC) the results section. HEPATITIS A ANTIBODY, Routine 11/27/2017 1:34 PM Alcoholic Results for this IGG CDT cirrhosis of liver procedure are in with ascites (HCC) the results section. PROTHROMBIN TIME/INR Routine 11/27/2017 1:34 PM Alcoholic Results for this CDT cirrhosis of liver procedure are in with ascites (HCC) the results section. CBC W/PLT COUNT & AUTO Routine 11/27/2017 1:34 PM Alcoholic Results for this DIFFERENTIAL CDT cirrhosis of liver procedure are in with ascites (HCC) the results section. BILIRUBIN, DIRECT Routine 11/27/2017 1:34 PM Alcoholic Results for this CDT cirrhosis of liver procedure are in with ascites (HCC) the results section. COMPREHENSIVE Routine 11/27/2017 1:34 PM Alcoholic Results for this METABOLIC PANEL CDT cirrhosis of liver procedure are in with ascites (HCC) the results section. after 09/09/2017 Results Basic Metabolic Panel (05/27/2018 2:39 AM CDT)Only the most recent of8 resultswithin the time period is included. Sodium 134 (L) 135 - 148 meq/L [facility] Potassium 3.5 3.5 - 5.5 meq/L [facility] Chloride 107 (H) 98 - 106 meq/L [facility] CO2 15 (L) 20 - 31 meq/L [facility] BUN 22 10 - 26 mg/dL [facility] Creatinine 1.51 (H) 0.50 - 1.20 mg/dL [facility] Glucose 105 70 - 110 mg/dL [facility] Calcium 9.7 8.5 - 10.5 mg/dL [facility] EGFR 37Comment: ESTIMATED GFR IS NOT mL/min/1.73 sq m [facility] ACCURATE CREATININE CLEARANCE IN PREDICTING GLOMERULAR FILTRATION RATE. ESTIMATED GFR IS NOT APPLICABLE FOR DIALYSIS PATIENTS. Specimen Blood - Arm, Right Narrative Performed At [facility] Specimen slightly icteric Performing Organization Address City/State/Zipcode Phone Number [facility] [address] [place] [address] TRANSFUSION SERVICE REPORT - SCAN (05/26/2018 6:12 PM CDT)Only the most recent of7 resultswithin the time period is included. Narrative Performed At US paracentesis (05/26/2018 3:49 PM CDT)Only the most recent of3 resultswithin the time period is included. Narrative Performed At FINAL REPORT [facility] Ultrasound guided paracentesis, 05/26/2018. Clinical History:Ascites. Sedation: None. Rehabilitation Physician:Vishnu Biggs MD News Technical Director:None. Estimated Blood Loss: < 1 cc. Specimen: 3000 cc of clear yellow fluid, samples sent to laboratory. Technique:Informed consent was obtained.The risks of pain, bleeding, infection, bowel perforation, injury to adjacent structures, and adverse medication reactions were discussed with the patient. After informed consent was obtained, the patient's abdomen was scanned.The right lower quadrant of the abdomen was selected for paracentesis.After the largest fluid pocket area was marked, and the anterior abdominal wall was evaluated with color Doppler to exclude presence of blood vessels traversing the area, the skin was prepped and draped in the usual sterile manner.After local anesthesia was achieved with 1% lidocaine, a 5 Liberian one-step catheter was advanced into the peritoneal cavity under ultrasound guidance. After completion of drainage, the catheter was removed. There was no evidence of complication. Impression: Successful ultrasound guided paracentesis. Signed: Vishnu Biggs MD Report Verified Date/Time:05/26/2018 16:05:11 Reading Location: [facility] Radiology Reading Room Procedure Note Interface, External Ris In - 05/27/2018 7:25 AM CDT FINAL REPORT Ultrasound guided paracentesis, 05/26/2018. Clinical History: Ascites. Sedation: None. Rehabilitation Physician: Vishnu Biggs MD News Technical Director: None. Estimated Blood Loss: < 1 cc. Specimen: 3000 cc of clear yellow fluid, samples sent to laboratory. Technique: Informed consent was obtained. The risks of pain, bleeding, infection, bowel perforation, injury to adjacent structures, and adverse medication reactions were discussed with the patient. After informed consent was obtained, the patient's abdomen was scanned. The right lower quadrant of the abdomen was selected for paracentesis. After the largest fluid pocket area was marked, and the anterior abdominal wall was evaluated with color Doppler to exclude presence of blood vessels traversing the area, the skin was prepped and draped in the usual sterile manner. After local anesthesia was achieved with 1% lidocaine, a 5 Liberian one-step catheter was advanced into the peritoneal cavity under ultrasound guidance. After completion of drainage, the catheter was removed. There was no evidence of complication. Impression: Successful ultrasound guided paracentesis. Signed: Vishnu Biggs MD Report Verified Date/Time: 05/26/2018 16:05:11 Reading Location: [facility] Radiology Reading Room Performing Organization Address City/State/Zipcode Phone Number [facility] Body fluid culture (05/26/2018 3:20 PM CDT)Only the most recent of2 resultswithin the time period is included. Result No growth [facility] Gram Stain Result 2+ WBCs [facility] Gram Stain Result No organisms seen [facility] Specimen Body Fluid - Ascites Performing Organization Address City/[facility]/Zipcode Phone Number [facility] [address] [place] [address] Body fluid cell count with differential (05/26/2018 3:20 PM CDT)Only the most recent of2 resultswithin the time period is included. Appearance Hazy (A) Clear [facility] Color Straw Colorless, Straw [facility] RBCs 1,220 (H) <=1 /uL [facility] Adjusted WBC Count 193 (H) <=5 /cu mm [facility] Lining Cells 14 (H) <=1 /cu mm [facility] % Segs 44 % [facility] % Lymphs 26 % [facility] % Monos 30 % [facility] % Eos 0 % [facility] % Baso 0 % [facility] Interpretation Negative for malignant [facility] cells. Pathologist: Stanislav Sofia M.D. [facility] (electronic signature) Container Body Fluid Sterile Cup [facility] Specimen Body Fluid - Ascites Performing Organization Address [facility] Phone Number [facility] [address] [place] [address] Potassium (05/26/2018 5:16 AM CDT)Only the most recent of3 resultswithin the time period is included. Potassium 3.7 3.5 - 5.5 meq/L [facility] Specimen Blood - Arm, Right Performing Organization Address [facility] Phone Number [facility] [address] [place] [address] [phone] Magnesium (05/26/2018 5:16 AM CDT)Only the most recent of7 resultswithin the time period is included. Magnesium 2.1 1.5 - 3.0 mg/dL [facility] Specimen Blood - Arm, Right Performing Organization Address [facility] Phone Number [facility] [address] [place] [address] Ammonia (05/26/2018 5:16 AM CDT)Only the most recent of3 resultswithin the time period is included. Ammonia 134 (H) 12 - 72 mol/L [facility] Specimen Blood - Arm, Right Performing Organization Address [facility] Phone Number [facility] [address] [place] [address] Comprehensive metabolic panel (05/26/2018 5:16 AM CDT)Only the most recent of5 resultswithin the time period is included. Protein, Total 7.5 6.0 - 8.5 gm/dL [facility] Albumin 3.9 3.5 - 5.0 g/dL [facility] Alkaline Phosphatase 97 30 - 115 U/L [facility] Total Bilirubin 2.3 (H) 0.1 - 1.3 mg/dL [facility] Sodium 134 (L) 135 - 148 meq/L [facility] Potassium 3.7 3.5 - 5.5 meq/L [facility] Chloride 105 98 - 106 meq/L [facility] CO2 16 (L) 20 - 31 meq/L [facility] BUN 25 10 - 26 mg/dL [facility] Creatinine 1.74 (H) 0.50 - 1.20 mg/dL [facility] Glucose 116 (H) 70 - 110 mg/dL [facility] Calcium 9.6 8.5 - 10.5 mg/dL [facility] AST 44 (H) 5 - 40 U/L [facility] ALT 23 6 - 50 U/L [facility] EGFR 31Comment: ESTIMATED GFR mL/min/1.73 sq m [facility] IS NOT ACCURATE CREATININE CLEARANCE IN PREDICTING GLOMERULAR FILTRATION RATE. ESTIMATED GFR IS NOT APPLICABLE FOR DIALYSIS PATIENTS. Specimen Blood - Arm, Right Performing Organization Address City/State/Zipcode Phone Number [facility] [address] [place] [address] [phone] Prepare Leuko-Red RBC (05/25/2018 11:54 PM CDT)Only the most recent of2 resultswithin the time period is included. CROSSMATCH COMPATIBLE SAFETRACE TX Unit ABO O Pos SAFETRACE TX UNIT NUMBER [id number] SAFETRACE TX Status TRANSFUSED SAFETRACE TX Blood Bank Product RED BLOOD CELLS SAFETRACE TX PRODUCT CODE [id number] SAFETRACE TX CROSSMATCH COMPATIBLE SAFETRACE TX Unit ABO O Pos SAFETRACE TX UNIT NUMBER [id number] SAFETRACE TX Status TRANSFUSED SAFETRACE TX Blood Bank Product RED BLOOD CELLS SAFETRACE TX PRODUCT CODE [id number] SAFETRACE TX Specimen Other Performing Organization Address City/State/Zipcode Phone Number [facility] [place] CBC with platelet count + automated diff (05/25/2018 3:49 AM CDT)Only the most recent of12 resultswithin the time period is included. WBC 4.5 4.0 - 10.0 K/L [facility] RBC 3.28 (L) 4.00 - 5.00 M/L [facility] Hemoglobin 10.0 (L) 12.0 - 15.5 GM/DL [facility] Hematocrit 29.9 (L) 36.0 - 46.0 % [facility] MCV 91.2 82.0 - 99.0 fL [facility] MCH 30.5 27.0 - 33.0 pg [facility] MCHC 33.4 32.0 - 36.0 GM/DL [facility] RDW 17.4 (H) 12.0 - 15.0 % [facility] Platelets 105 (L) 150 - 430 K/CU MM [facility] MPV 10.5Comment: 6.0 - 11.5 fL [facility] MPV-Approximately 20% positive bias due to method change. nRBC 0 0 - 0 /100 WBC [facility] % Neutros 71 % [facility] % Lymphs 8 % [facility] % Monos 13 % [facility] % Eos 6 % [facility] % Baso 1 % [facility] # Neutros 3.22 1.80 - 8.00 K/L [facility] # Lymphs 0.38 (L) 1.48 - 4.50 K/L [facility] # Monos 0.57 0.00 - 1.30 K/L [facility] # Eos 0.29 0.00 - 0.50 K/L [facility] # Baso 0.05 0.00 - 0.20 K/L [facility] Immature 0 0 - 0 % [facility] Granulocytes-Relative Specimen Blood Performing Organization Address City/[facility]/Zipcode Phone Number [facility] [address] [place] [address] Transfuse Leuko-Red RBC (05/25/2018 12:17 AM CDT)Only the most recent of5 resultswithin the time period is included.Occult blood, stool (05/24/2018 1:38 PM CDT) Occult blood Positive (A) Negative [facility] Specimen Stool Performing Organization Address [facility] Phone Number [facility] [address] [place] [address] [phone] Sodium, random urine (05/24/2018 1:38 PM CDT)Only the most recent of2 resultswithin the time period is included. Sodium Urine 28 meq/L [facility] Specimen Urine Narrative Performed At [facility] Reference Range: No Normals Performing Organization Address [facility] Phone Number [facility] [address] [place] [address] [phone] Creatinine, random urine (05/24/2018 1:38 PM CDT)Only the most recent of2 resultswithin the time period is included. Creatinine, Ur 42.7 mg/dL [facility] Specimen Urine Narrative Performed At [facility] Reference Range: No Normals Performing Organization Address [facility] Phone Number [facility] [address] [place] [address] [phone] Type and screen, automated (05/24/2018 1:36 PM CDT)Only the most recent of2 resultswithin the time period is included. ABORh O POSITIVE [facility] Antibody Screen NEGATIVE [facility] Specimen Blood Performing Organization Address [facility] Phone Number [facility] [address] [place] [address] [phone] [facility] Alpha fetoprotein (AFP), tumor marker (05/24/2018 1:36 PM CDT)Only the most recent of2 resultswithin the time period is included. Alpha-Fetoprotein 5.5 <10.0 ng/mL [facility] Specimen Blood Performing Organization Address City/[facility]/Zipcode Phone Number [facility] [address] [place] [id number] [place] Hepatitis panel, acute (05/24/2018 1:36 PM CDT) Hep A IgM HEPATITIS A TEST NEGATIVE Nonreactive [facility] Hep B C IgM NON-REACTIVE Nonreactive [facility] Hepatitis C Ab NON-REACTIVE Nonreactive [facility] hepatitis B Surface Ag NON-REACTIVE Nonreactive [facility] Specimen Blood Performing Organization Address City/State/Zipcode Phone Number [facility] [address] [place] [address] [phone] CENTER US renal complete (05/24/2018 11:37 AM CDT) Narrative Performed At FINAL REPORT [employer] [facility] RENAL ULTRASOUND HISTORY: Acute kidney injury COMPARISON: Abdominal ultrasound 02/11/2018 TECHNIQUE: Real-time ultrasound of the kidneys was performed. FINDINGS: The kidneys are normal in size. The right kidney measures 11.6 cm in length and the left kidney measures 11.1 cm in length. Renal cortical thickness measures 1.1 cm on the right and 1.6 cm on the left. Renal echogenicity appears mildly increased bilaterally suggestive of chronic renal parenchymal disease. No renal mass lesion. No hydronephrosis or calculi are seen. Limited Doppler evaluation of the bilateral main renal arteries and veins demonstrated patency. The bladder is unremarkable. Incidental note is made of cirrhosis with ascites. IMPRESSION: 1. No acute ultrasound abnormalities are visualized in the kidneys. 2. Increased renal echogenicity bilaterally suggestive of chronic renal parenchymal disease. Signed: Mariel Greenberg MD Report Verified Date/Time:05/24/2018 11:53:08 Reading Location: [address] Transitional Reading Room Procedure Note Interface, External Ris In - 05/24/2018 11:55 AM CDT FINAL REPORT RENAL ULTRASOUND HISTORY: Acute kidney injury COMPARISON: Abdominal ultrasound 02/11/2018 TECHNIQUE: Real-time ultrasound of the kidneys was performed. FINDINGS: The kidneys are normal in size. The right kidney measures 11.6 cm in length and the left kidney measures 11.1 cm in length. Renal cortical thickness measures 1.1 cm on the right and 1.6 cm on the left. Renal echogenicity appears mildly increased bilaterally suggestive of chronic renal parenchymal disease. No renal mass lesion. No hydronephrosis or calculi are seen. Limited Doppler evaluation of the bilateral main renal arteries and veins demonstrated patency. The bladder is unremarkable. Incidental note is made of cirrhosis with ascites. IMPRESSION: 1. No acute ultrasound abnormalities are visualized in the kidneys. 2. Increased renal echogenicity bilaterally suggestive of chronic renal parenchymal disease. Signed: Mariel Greenberg MD Report Verified Date/Time: 05/24/2018 11:53:08 Reading Location: [id number] Transitional Reading Room Performing Organization Address City/State/Zipcode Phone Number [facility] brain without IV contrast (05/23/2018 5:55 PM CDT) Narrative Performed At FINAL REPORT [facility] CT head without contrast 05/23/2018 5:55 PM CLINICAL HISTORY: ALTERED MENTAL STATUS BLOATED ABSCESS altered mental status TECHNIQUE: Axial noncontrast CT images through the head were obtained. This examination was performed according to our departmental dose optimization program, which includes automated exposure control, adjustment of the mA and/or kV according to patient size, and/or use of iterated reconstruction technique. COMPARISON: None available FINDINGS: There is no hemorrhage, extra-axial collection, mass, hydrocephalus, or midline shift. There is no CT evidence for cerebral infarction. There is generalized parenchymal volume loss. The visualized paranasal sinuses and mastoid air cells are well aerated. The skull is intact. IMPRESSION: No intracranial hemorrhage or mass effect. If concern for acute pathology persists, further evaluation with MRI is recommended. Signed: Denis Silver MD Report Verified Date/Time:05/23/2018 17:56:33 Reading Location: [facility] Radiology Reading Room Procedure Note Interface, External Ris In - 05/23/2018 5:58 PM CDT FINAL REPORT CT head without contrast 05/23/2018 5:55 PM CLINICAL HISTORY: ALTERED MENTAL STATUS BLOATED ABSCESS altered mental status TECHNIQUE: Axial noncontrast CT images through the head were obtained. This examination was performed according to our departmental dose optimization program, which includes automated exposure control, adjustment of the mA and/or kV according to patient size, and/or use of iterated reconstruction technique. COMPARISON: None available FINDINGS: There is no hemorrhage, extra-axial collection, mass, hydrocephalus, or midline shift. There is no CT evidence for cerebral infarction. There is generalized parenchymal volume loss. The visualized paranasal sinuses and mastoid air cells are well aerated. The skull is intact. IMPRESSION: No intracranial hemorrhage or mass effect. If concern for acute pathology persists, further evaluation with MRI is recommended. Signed: Denis Silver MD Report Verified Date/Time: 05/23/2018 17:56:33 Reading Location: [facility] Radiology Reading Room Performing Organization Address [facility] Phone Number GE RIS XR chest 1 view portable / bedside (05/23/2018 4:25 PM CDT) Narrative Performed At FINAL REPORT [facility] CHEST AP PORTABLE History provided: Altered mental status Heart size normal. Lungs clear and vascularity normal. IMPRESSION: Clear chest. Signed: Gonzalo Serrano MD Report Verified Date/Time:05/23/2018 16:22:47 Reading Location: [facility] Radiology Reading Room Procedure Note Interface, External Ris In - 05/23/2018 4:45 PM CDT FINAL REPORT CHEST AP PORTABLE History provided: Altered mental status Heart size normal. Lungs clear and vascularity normal. IMPRESSION: Clear chest. Signed: Gonzalo Serrano MD Report Verified Date/Time: 05/23/2018 16:22:47 Reading Location: [facility] Radiology Reading Room Performing Organization Address [facility] Phone Number GE RIS ECG 12 lead (05/23/2018 3:52 PM CDT)Only the most recent of3 resultswithin the time period is included. Narrative Performed At Ventricular Rate 98 BPM GE MUSE Atrial Rate 98 BPM P-R Interval 136 ms QRS Duration 74 ms Q-T Interval 434 ms QTC Calculation(Bazett) 554 ms P [place] 71 degrees R [place] 36 degrees T [place] 61 degrees Normal sinus rhythm Nonspecific ST abnormality Prolonged QT Abnormal ECG No previous ECGs available Procedure Note Interface, External Ris In - 05/26/2018 4:49 PM CDT Ventricular Rate 98 BPM Atrial Rate 98 BPM P-R Interval 136 ms QRS Duration 74 ms Q-T Interval 434 ms QTC Calculation(Bazett) 554 ms P [place] 71 degrees R [place] 36 degrees T [place] 61 degrees Normal sinus rhythm Nonspecific ST abnormality Prolonged QT Abnormal ECG No previous ECGs available Performing Organization Address [facility] Phone Number GE MUSE Urinalysis w/Microscopic (05/23/2018 3:47 PM CDT) Color, UA Yellow [facility] Clarity, UA Hazy [facility] Specific [place], UA 1.016 1.001 - 1.035 [facility] pH, UA 5.0 5.0 - 8.0 [facility] Protein, UA Negative Negative [facility] Glucose, UA Negative Negative [facility] Ketones, UA Negative Negative [facility] Bilirubin, UA Negative Negative [facility] Blood, UA Negative Negative [facility] Nitrite, UA Negative Negative [facility] Leukocytes, UA Negative Negative [facility] Urobilinogen, UA <1.0 0.2 - 1.0 mg/dL [facility] RBC, UA 1 /HPF [facility] WBC, UA 1 /HPF [facility] Bacteria, UA Rare [facility] Mucus Rare [facility] Squam Epithel, UA <1 /HPF [facility] Hyaline Casts, UA 4 /LPF [facility] Specimen Source [facility] Specimen Urine - Urine, Straight Catheter Performing Organization Address [facility] Phone Number [facility] [address] [place] [address] [phone] Urine culture (05/23/2018 3:47 PM CDT) Result No growth [facility] Specimen Urine - Urine, Straight Catheter Performing Organization Address [facility] Phone Number [facility] [address] [place] [address] [phone] Prothrombin time/INR (05/23/2018 3:40 PM CDT)Only the most recent of4 resultswithin the time period is included. Protime 16.1 (H) 11.8 - 14.4 seconds [facility] INR 1.3 1.2 - 1.5 [facility] Specimen Blood - Arm, Right Narrative Performed At [facility] RECOMMENDED COUMADIN/WARFARIN INR THERAPY RANGES STANDARD DOSE: 2.0 - 3.0 Includes: PROPHYLAXIS for venous thrombosis, systemic embolization; TREATMENT for venous thrombosis and/or pulmonary embolus. HIGH RISK: Target INR is 2.5-3.5 for patients with mechanical heart valves. Performing Organization Address [facility] Phone Number [facility] [address] [place] [address] Blood culture (05/23/2018 3:39 PM CDT)Only the most recent of4 resultswithin the time period is included. Result No growth in 5 days [facility] Specimen Blood - Arm, Right Performing Organization Address [facility] Phone Number [facility] [address] [place] [address] Lactic acid, venous, whole blood (05/23/2018 3:38 PM CDT)Only the most recent of2 resultswithin the time period is included. Lactate, Venous 2.0Comment: Specimen moderately 0.5 - 2.2 mmol/L [facility] hemolyzed Specimen Blood - Line, Venous Narrative Performed At [facility] Effective 12/07/2015: Units/Reference Range Change New: 0.5-2.2 mmol/LPrevious: 5-20 mg/dL Performing Organization Address [facility] Number [facility] [address] [place] [address] Lipase (05/23/2018 3:38 PM CDT)Only the most recent of2 resultswithin the time period is included. Lipase 82 (H) 8 - 78 U/L [facility] Specimen Blood - Line, Venous Performing Organization Address [facility] Phone Number [facility] [address] [place] [address] RHYTHM STRIP - SCAN (02/18/2018 10:30 AM CDT) Narrative Performed At POC-Glucose meter (02/15/2018 11:14 AM CDT)Only the most recent of17 resultswithin the time period is included. POC-Glucose Meter 119 (H)Comment: TESTED AT 70 - 110 mg/dL [facility] [address] [facility] [address] Specimen Blood Performing Organization Address City/[facility]/Zipcode Phone Number [address] [address] CENTER CBC (Hemogram only) (02/15/2018 5:05 AM CDT)Only the most recent of3 resultswithin the time period is included. WBC 5.1 3.5 - 10.5 K/L [facility] RBC 2.79 (L) 3.93 - 5.22 M/L [facility] Hemoglobin 8.8 (L) 11.2 - 15.7 GM/DL [facility] Hematocrit 27.2 (L) 34.1 - 44.9 % [facility] MCV 97.5 (H) 79.4 - 94.8 fL [facility] MCH 31.5 25.6 - 32.2 pg [facility] MCHC 32.4 32.2 - 35.5 GM/DL [facility] RDW 18.8 (H) 11.7 - 14.4 % [facility] Platelets 86 (L) 150 - 450 K/CU MM [facility] MPV 12.6 (H) 9.4 - 12.3 fL [facility] nRBC 0 0 - 0 /100 WBC [facility] Specimen Blood Performing Organization Address City/State/Zipcode Phone Number [address] [address] CENTER Phosphorus (02/15/2018 5:05 AM CDT)Only the most recent of6 resultswithin the time period is included. Phosphorus 3.5 2.3 - 4.7 mg/dL [facility] Specimen Blood Performing Organization Address City/[facility] Phone Number [facility] [address] [place] [address] [place] Hepatic function panel (02/15/2018 5:05 AM CDT)Only the most recent of5 resultswithin the time period is included. Protein, Total 6.3 6.0 - 8.3 gm/dL [facility] Albumin 3.9 3.5 - 5.0 g/dL [facility] Total Bilirubin 1.7 (H) 0.2 - 1.2 mg/dL [facility] Bilirubin, Direct 1.0 (H) 0.1 - 0.5 mg/dL [facility] Alkaline Phosphatase 126 40 - 150 U/L [facility] AST 118 (H) 5 - 34 U/L [facility] ALT 56 (H) 6 - 55 U/L [facility] Specimen Blood Performing Organization Address City/[facility] Phone Number [address] [address] [place] aPTT (02/14/2018 3:12 PM CDT)Only the most recent of2 resultswithin the time period is included. PTT 28.9 22.5 - 36.0 seconds [facility] Specimen Blood - Central Venous Line Performing Organization Address City/[facility] Phone Number [facility] [address] [place] [address] [phone] CENTER Prepare RBC (02/12/2018 11:54 PM CDT) CROSSMATCH COMPATIBLE SAFETRACE TX Unit ABO O Pos SAFETRACE TX UNIT NUMBER [id number] SAFETRACE TX Status RETURNED FROM ISSUE SAFETRACE TX Blood Bank Product RED BLOOD CELLS SAFETRACE TX PRODUCT CODE [id number] SAFETRACE TX CROSSMATCH COMPATIBLE SAFETRACE TX Unit ABO O Pos SAFETRACE TX UNIT NUMBER [id number] SAFETRACE TX Status TRANSFUSED SAFETRACE TX Blood Bank Product RED BLOOD CELLS SAFETRACE TX PRODUCT CODE [id number] SAFETRACE TX Performing Organization Address [facility] Phone Number SAFETRACE TX HIV-1 Antigen with HIV-1/2 Antibody (02/12/2018 5:29 AM CDT) HIV-1 Antigen with HIV 1&2 NON-REACTIVE Nonreactive [facility] Antibody [facility] Specimen Blood Performing Organization Address [facility] Phone Number [facility] [address] [place] [address] [phone] CENTER PT/aPTT (02/11/2018 3:47 PM CDT)Only the most recent of2 resultswithin the time period is included. Protime 18.7 (H) 11.7 - 14.7 seconds [facility] INR 1.6 <=5.9 [facility] PTT 36.5 (H) 22.5 - 36.0 seconds [facility] Specimen Blood Narrative Performed At [facility] RECOMMENDED COUMADIN/WARFARIN INR THERAPY RANGES STANDARD DOSE: 2.0 - 3.0 Includes: PROPHYLAXIS for venous thrombosis, systemic embolization; TREATMENT for venous thrombosis and/or pulmonary embolus. HIGH RISK: Target INR is 2.5-3.5 for patients with mechanical heart valves. Performing Organization Address [facility] Phone Number [address] [phone] CENTER Tissue Exam (02/11/2018 1:38 PM CDT) Case Report Surgical Pathology Report Case: [id number] [facility] Authorizing Provider:Tamera Mayorga MD Collected: 02/11/2018 1338 [facility]ICAL [facility]ENTER Ordering Location: [place] [address] ICUReceived: 02/11/2018 1613 Pathologist: Herminia Hope MD Specimen:Hernia Sac, Umbilical DIAGNOSIS SKIN AND HERNIA SAC, EXCISION: [facility] - SKIN WITH ULCER, NECROSIS, HERNIA WITH FIBROSIS, ADHESION AND CHRONIC INFLAMMATION [facility] Signing Pathologist Direct Phone Line: [phone] CPT Code(s) 87500 [facility] CLINICAL HISTORY Incarcerated umbilical [facility] hernia [facility] SPECIMEN SOURCE Hernia sac umbilical [facility] GROSS DESCRIPTION The specimen is received in [facility] a formalin-filled container [facility] labeled with the patient's information and labeled "umbilical hernial sac" and consists of hemorrhagic membranous tissue measuring 6 x 3 x 0.2 cm with overlying brown skin measuring 5.5 x 3 x 0.3 cm, submitted in A1 and A2. There are no areas of suspicion. CG/ew MICROSCOPIC DESCRIPTION Performed [facility] Specimen Tissue - Hernia Sac, Umbilical Performing Organization Address [facility] Phone Number [address] [address] [phone] CENTER AFB culture + smear (02/11/2018 1:34 PM CDT) Result No acid-fast bacilli isolated in [facility] 42 days CENTER AFB Smear No acid fast bacilli seen [facility] Specimen Wound - Abdomen Performing Organization Address [facility] Phone Number [address] [address] [phone] [place] Anaerobic culture (02/11/2018 1:34 PM CDT) Result No anaerobes isolated [facility] Specimen Wound - Abdomen Performing Organization Address [facility] Phone Number [address] [address] CENTER Surgically obtained culture + gram stain (02/11/2018 1:34 PM CDT) Result No growth [facility] Gram Stain Result <1+ WBCs [facility] Gram Stain Result No organisms seen [facility] Specimen Wound - Abdomen Performing Organization Address [facility]/State/[facility] Phone Number [address] [address] [phone] [place] Fungus culture + smear (02/11/2018 1:34 PM CDT) Result No fungus isolated in 28 days [facility] Fungus Smear No fungi seen [facility] Specimen Wound - Abdomen Performing Organization Address [facility] Phone Number [address] [address] [phone] [place] SPIN/CONCENTRATION CHARGE (02/11/2018 1:34 PM CDT) Concentration charged Done [facility] Specimen Wound - Abdomen Performing Organization Address [facility] Number [address] [address] [phone] [place] Potassium-Stat Lab (02/11/2018 1:21 PM CDT) Potassium 3.9 3.6 - 5.5 meq/L [facility] Specimen Other Narrative Performed At THIS IS A VENOUS SAMPLE [facility] THIS IS A VENOUS SAMPLE THIS IS A VENOUS SAMPLE Performing Organization Address [facility] Number [address] [address] [phone] [place] Sodium Na-Stat Lab (02/11/2018 1:21 PM CDT) Sodium 135 135 - 148 meq/L [facility] Specimen Other Narrative Performed At THIS IS A VENOUS SAMPLE [facility] THIS IS A VENOUS SAMPLE THIS IS A VENOUS SAMPLE Performing Organization Address [facility] Phone Number [address] [address] [place] Glucose-Stat Lab (02/11/2018 1:21 PM CDT) Glucose 122 (H) 70 - 110 mg/dL [facility] Specimen Other Narrative Performed At THIS IS A VENOUS SAMPLE [facility] THIS IS A VENOUS SAMPLE THIS IS A VENOUS SAMPLE Performing Organization Address City/[facility]/Zipcode Phone Number [address] [address] [phone] [place] HGB/HCT (H&H)-Stat Lab (02/11/2018 1:21 PM CDT) Hemoglobin 8.7 (L) 12.0 - 15.0 g/dL [facility] Hematocrit 26.0 (L) 36.0 - 45.0 % [facility] Specimen Other Narrative Performed At THIS IS A VENOUS SAMPLE [facility] Performing Organization Address [facility] Phone Number [address] [address] [place] Calcium, Ionized (02/11/2018 1:21 PM CDT) Calcium, Ion 1.07 (L) 1.12 - 1.27 mmol/L [facility] pH, Blood 7.28 [facility] Specimen Blood Performing Organization Address City/[facility] Phone Number [address] [address] [place] US abdomen complete (02/11/2018 6:57 AM CDT) Narrative Performed At [facility] Abdominal Ultrasound Clinical Diagnosis: Ascites acute renal [...] MD Report Verified Date/Time:02/11/2018 09:32:36 Reading Location: [address] Ultrasound Reading Room Procedure Note Interface, [...] Report Verified Date/Time: 02/11/2018 09:32:36 Reading Location: [facility] [id number] Ultrasound Reading Room Performing Organization Address City/State/Zipcode Phone Number [facility] CT abdomen/pelvis without iv contrast (02/11/2018 12:01 AM CDT) Narrative Performed At [facility] HISTORY : Hernia, complicated Technique: Multiple axial [...] MD Report Verified Date/Time:02/11/2018 07:50:19 Reading Location: [facility] Diagnostic Imaging Reading Room - [place] [address] Procedure Note Interface, External Ris In - [...] Report Verified Date/Time: 02/11/2018 07:50:19 Reading Location: [facility] Diagnostic Imaging Reading Room - [place] [address] Performing Organization Address City/[facility]/Zipcode Phone Number GE RIS Protein, random urine (02/10/2018 6:15 PM CDT) Protein, Urine 19 (H) 0 - 14 mg/dL [facility] Specimen Urine - Urine, Voided Performing Organization Address [facility] Phone Number [address] [address] [phone] [place] Screen, urine (02/10/2018 6:14 PM CDT) Preg Test, Ur Negative [facility] Specimen Urine - Urine, Voided Performing Organization Address [facility] Phone Number [address] [address] CENTER REPORT OF PROCEDURE - ENDOSCOPY URL (02/10/2018 4:35 PM CDT) Narrative Performed At Urinalysis w/Microscopic + Reflex to Culture (02/10/2018 4:08 AM CDT) Color, UA Yellow [facility] Clarity, UA Hazy [facility] Specific [place], UA 1.013 1.001 - 1.035 [facility] pH, UA 6.0 5.0 - 8.0 [facility] Protein, UA 10 mg/dL (A) Negative [facility] Glucose, UA Negative Negative [facility] Ketones, UA Trace (A) Negative [facility] Bilirubin, UA Negative Negative [facility] Blood, UA Negative Negative [facility] Nitrite, UA Negative Negative [facility] Leukocytes, UA Negative Negative [facility] Urobilinogen, UA 0.2 0.2 - 1.0 mg/dL [facility] RBC, UA <1 /HPF [facility] WBC, UA 2 /HPF [facility] Bacteria, UA Rare [facility] Mucus Rare [facility] Squam Epithel, UA 8 /HPF [facility] Hyaline Casts, UA 70 /LPF [facility] Amorphous Crystals Rare [facility] Specimen Source [facility] Specimen Urine - Urine, Voided Performing Organization Address City/State/Zipcode Phone Number [facility] [address] [place] [address] [place] Rapid drug screen, urine (02/10/2018 4:08 AM CDT) Barbiturate Screen Negative Negative [facility] Benzodiazepine Screen Negative Negative [facility] Cocaine (Metab.) Screen Negative Negative [facility] Methadone Screen Negative Negative [facility] Opiate Screen Negative Negative [facility] Cannabinoid Screen Negative Negative [facility] Amph/Methamph Screen Negative Negative [facility] Phencyclidine Screen Negative Negative [facility] Oxycodone Screen Negative Negative [facility] Specimen Urine - Urine, Voided Narrative Performed At [facility] DRUGCUTOFF CONC. Cocaine 300 ng/mL Bbyhaxpcekt24 ng/mL Zeeovuelrixhxb705 ng/mL Barbiturate 200 ng/mL Mfuoslhypxbhn48 ng/mL Okqmwt149 ng/mL Methadone 300 ng/mL Amphetamine/ 1000 ng/mL Methamphetamine Oxycodone 300 ng/mL This assay provides an unconfirmed qualitative test result for the clinical management of patients in emergency situations. Chain of custody not maintained. Some hugs-koa-dybbutl medications, as well as adulterants, may cause inaccurate results. Clinical correlation should be applied. A more comprehensive drug screen or confirmation of a detected drug may be performed upon request. Performing Organization Address [facility] Phone Number [address] [address] [place] Blood gas, venous (02/10/2018 2:00 AM CDT) pH, Ortiz 7.42 7.32 - 7.42 [facility] pCO2, Ortiz 28 (L) 41 - 51 mmHg [facility] pO2, Ortiz 34 25 - 40 mmHg [facility] O2 Sat, Ortiz 67.6 40.0 - 70.0 % [facility] HCO3, Ortiz 17 (L) 21 - 29 mmol/L [facility] Base Excess, Ortiz -6.2 (L) -2.0 - 3.0 mmol/L [facility] Patient Temperature 37.0 C [facility] Specimen Blood - Central Venous Line Performing Organization Address [facility] Phone Number [address] [address] [phone] [place] Troponin I (02/10/2018 1:54 AM CDT) Troponin I <0.01 0.00 - 0.03 ng/mL [facility] Specimen Blood Narrative Performed At [facility] Troponin I (TnI) levels must be interpreted [...] acidosis, acute neurological disease, and persistent tachyarrhythmia. Performing Organization Address [facility] Phone Number [address] [address] [phone] CENTER Fibrinogen (02/10/2018 1:54 AM CDT) Fibrinogen 372 225 - 434 mg/dl [facility] Specimen Blood Performing Organization Address [facility] Phone Number [address] [address] [phone] [place] Creatine Kinase (CK), Total and MB (02/10/2018 1:54 AM CDT) Total CK 30 29 - 200 U/L [facility] CK-MB 0.4 0.0 - 6.6 ng/mL [facility] MB Relative Index 1.3 % [facility] Specimen Blood Narrative Performed At CK-MB Reference Range: [facility] <6.7Normal 6.7-10.0Borderline >10.0 Abnormal Performing Organization Address [facility] Phone Number [address] [address] [phone] CENTER Ethanol (02/10/2018 1:54 AM CDT) Ethanol Lvl <10 <=10 mg/dL [facility] Specimen Blood Performing Organization Address [facility] Phone Number [address] [address] [phone] [place] Hepatitis A antibody, IgG (11/27/2017 1:34 PM CDT) Hep A IgG Nonreactive Nonreactive [facility] Specimen Blood Performing Organization Address [facility] Phone Number [address] [address] [place] Mitochondrial Antibodies, M2 (11/27/2017 1:34 PM CDT) Mitochondria M2 Ab <20.0 See Note: U [facility] Comment: Reference Range: NEGATIVE:< OR=20.0 EQUIVOCAL: 20.1-24.9 POSITIVE:> OR=25.0 Specimen Blood Narrative Performed At Performing Lab [facility] EZ [facility] [address] [place] [address] Lizette Cason MD, PhD, ABIMBOLA Performing Organization Address City/[facility] Phone Number [facility] [place] [id number] [place] [address] Iron, TIBC, % sat. (without ferritin) (11/27/2017 1:34 PM CDT) Iron 37 (L) 40 - 160 ug/dL [facility] TIBC 219 (L) 250 - 450 ug/dL [facility] Iron % Saturation 17 (L) 20 - 55 % [facility] Specimen Blood Performing Organization Address [facility] Phone Number [address] [phone] [place] Hepatitis C antibody (11/27/2017 1:34 PM CDT) Hepatitis C Ab NON-REACTIVE Nonreactive [facility] Specimen Blood Performing Organization Address [facility] Phone Number [address] [phone] [place] Actin (Smooth Muscle) Antibody, IgG (11/27/2017 1:34 PM CDT) Anti-Smooth Muscle Ab 21 (H) See Note: U [facility] Comment: [facility] Reference Range: <20 NEGATIVE > OR=20 POSITIVE [...] closely correlated with AIH type 1. Specimen Blood Narrative Performed At Performing Lab [facility] E[facility] [place] [address] [place] [address] Lizette Cason MD, PhD, ABIMBOLA Performing Organization Address City/[facility] Phone Number [facility] [place] [address] [facility] [address] [facility] [id number] (11/27/2017 1:34 PM CDT) A-1 Antitrypsin 151.80 90.00 - 200.00 mg/dL [facility] Specimen Blood Performing Organization Address City/State/Zipcode Phone Number [address] [address] [phone] CENTER LÓPEZ Titer & Pattern (11/27/2017 1:34 PM CDT) LÓPEZ Titer 1:40 [facility] LÓPEZ Pattern Speckled [facility] Specimen Blood Performing Organization Address City/State/Zipcode Phone Number [address] [address] CENTER Ceruloplasmin (11/27/2017 1:34 PM CDT) Ceruloplasmin 25 18 - 53 mg/dL [facility] Comment: Adults:Males: 18-36 mg/dL Females: 18-53 mg/dL Pediatrics:Males (mg/dL)Females (mg/dL) 0-30 Days 8-25 3-28 31 Days-11 Month 15-43 1-3 [id number] 4-6 [id number] 7-9 [id number] 10-12 [id number] 13-15 [id number] 16-18 [id number] The pediatric ranges are derived from the following criteria: Yehuda FINN, Buck MERCHANT, Lorna J et al Pediatric reference ranges for Oagi-0-Ckqgepctutbde and ceruloplasmin. Clin. Chem 1997; 43:S1999 Pediatric Reference Ranges, 2nd., [place] Yehudaet al. editors. [employer], [place], [place] 1997. Specimen Blood Narrative Performed At Performing Lab [facility] *[facility], [address] [place] [id number] Florencia Almanzar MD, PhD Performing Organization Address City/State/Zipcode Phone Number [facility], [place] [address] [facility] [id number] [facility] Hepatitis B core antibody, total (11/27/2017 1:34 PM CDT) Hep B Core Total Ab NON-REACTIVE Nonreactive [facility] Specimen Blood Performing Organization Address City/[facility] Phone Number [address] [address] CENTER Hepatitis B surface antibody (11/27/2017 1:34 PM CDT) Hep B S Ab <8.0 <8.0 mIU/mL [facility] Specimen Blood Performing Organization Address [facility] Phone Number [address] [phone] [place] Hepatitis B surface antigen (11/27/2017 1:34 PM CDT) hepatitis B Surface Ag NON-REACTIVE Nonreactive [facility] Specimen Blood Performing Organization Address [facility] Phone Number [address] [address] [phone] CENTER Anti-Nuclear Antibody (LÓPEZ) (11/27/2017 1:34 PM CDT) LÓPEZ Positive (A) Negative [facility] Specimen Blood Performing Organization Address [facility]/Zipcode Phone Number [address] [address] CENTER Ferritin (11/27/2017 1:34 PM CDT) Ferritin 237 5 - 275 ng/mL [facility] Specimen Blood Performing Organization Address [facility]/Zipcode Phone Number [address] [address] [phone] CENTER Bilirubin, direct (11/27/2017 1:34 PM CDT) Bilirubin, Direct 0.6 (H) 0.1 - 0.5 mg/dL [facility] Specimen Blood Performing Organization Address City/State/Zipcode Phone Number [facility] [address] [place] [address] CENTER after 09/09/2017 Insurance Payer Benefit Plan / Group Subscriber ID Type Phone Address [employer]ARC[employer] MEDICAID MEDICAID GARCIA xxxxxxxxx Advance Directives For more information, please contact:[facility] [place], [place] [phone] Code Status Date Activated Date Inactivated Comments Full Code 05/23/2018 8:59 PM 05/27/2018 7:11 PM This code status was determined by: Patient Full Code 02/10/2018 2:37 AM 02/15/2018 7:08 PM This code status was determined by: Patient
--- OUTSIDE RECORDS SUMMARY | 2018-09-10 14:29 | XMS REPORT ---
:1970 [facility] [address] [place] [address] [place] [id number] Care Team Providers Name Role Phone CLEVE ALCOCER Unavailable Unavailable NICK MCKENZIE Unavailable Unavailable RAMON ARIAS Unavailable Unavailable Problems This patient has no known problems. Allergies, Adverse Reactions, Alerts This patient has no known allergies or adverse reactions. Medications This patient has no known medications. Results Test Description Test Time Test Comments Text Results Atomic Results Result Comments U/S, PARACENTESIS 2018-06-02 Reason for FINAL REPORT PATIENT ID: [id number] exam:->ascitesReason for [id number] Ultrasound exam:->possible sbpShould guided paracentesis, this be performed at the 05/23/2018. Clinical bedside?->Yes History: Ascites. Sedation: None. Miner Placer: Mckenzie. Supervisor Maintenance: None. Estimated Blood Loss: < 1 cc. Specimen: 6500 cc of clear yellow fluid, samples sent [...] was achieved with 1% lidocaine, a 5 [place] one-step catheter was advanced into the peritoneal cavity under ultrasound guidance. After completion of drainage, the catheter was removed. There was no evidence of complication. Patient Disposition: The patient was discharged from the ultrasound department after the paracentesis, in good condition. Impression:Successful ultrasound guided paracentesis. Signed: Pino Rincon Verified Date/Time: 06/02/2018 08:43:07 Reading Location: [facility] B1 P048 Angio Body Reading Room FLUID CULTURE + GRAM STAIN 2018-05-29 08:26:00 Test Item Value Reference Range Comments CULTURE (BEAKER) (test cxho=4556) No growth GRAM STAIN RESULT (BEAKER) (test sqyp=4212) 2+ WBCs GRAM STAIN RESULT (BEAKER) (test lyau=42086) No organisms seen BLOOD [id number] 19:00:00 Test Item Value Reference Range Comments CULTURE (BEAKER) (test otzn=6934) No growth in 5 days BLOOD [id number] 19:00:00 Test Item Value Reference Range Comments CULTURE (BEAKER) (test dtwz=1045) No growth in 5 days BODY FLUID CELL COUNT WITH [id number] 15:04:00 Test Item Value Reference Range Comments APPEARANCE FLUID (BEAKER) (test Hazy Clear eycf=475) COLOR FLUID (BEAKER) (test Straw Colorless, Straw rccz=933) RBC FLUID (BEAKER) (test 1220 /uL <=1 kqng=448) ADJUSTED WBC FLUID (BEAKER) 193 /cu mm <=5 (test pist=6603) LINING CELLS (BEAKER) (test 14 /cu mm <=1 octm=9638) NEUTROPHILS FLUID (BEAKER) 44 % (test qtei=3991) LYMPHS FLUID (BEAKER) (test 26 % exnj=548) MONO/MACROPHAGE FLUID (BEAKER) 30 % (test ouic=199) EOSINOPHILS FLUID (BEAKER) 0 % (test ogdj=427) BASO FLUID (BEAKER) (test 0 % vdvx=682) INTERPRETATION-210 (BEAKER) Negative for malignant (test gfvc=6264) cells. WVIH-ZVJMLXWEQEK-713 (BEAKER) Stanislav Sofia M.D. (test ohpb=8850) (electronic signature) CONTAINER BODY FLUID (BEAKER) Sterile Cup (test tuzu=6975) BASIC METABOLIC [id number] 03:33:00 Test Item Value Reference Range Comments SODIUM (BEAKER) (test 134 meq/L 135-148 ilax=263) POTASSIUM (BEAKER) (test 3.5 meq/L 3.5-5.5 wkih=511) CHLORIDE (BEAKER) (test 107 meq/L 98-106 scxc=387) CO2 (BEAKER) (test 15 meq/L 20-31 xjbv=796) BLOOD UREA NITROGEN 22 mg/dL 10-26 (BEAKER) (test ctcj=056) CREATININE (BEAKER) (test 1.51 mg/dL 0.50-1.20 hziz=600) GLUCOSE RANDOM (BEAKER) 105 mg/dL 70-110 (test govx=320) CALCIUM (BEAKER) (test 9.7 mg/dL 8.5-10.5 rhpo=208) EGFR (BEAKER) (test 37 mL/min/1.73 sq m ESTIMATED GFR IS NOT nkjp=8632) ACCURATE CREATININE CLEARANCE IN PREDICTING GLOMERULAR FILTRATION RATE. ESTIMATED GFR IS NOT APPLICABLE FOR DIALYSIS PATIENTS. Specimen slightly ictericU/S, [id number] 16:05:00Reason for exam:-& gt;ascites, please only remove about 3L, pt with ZUNILDA too, dont want to shift fluidbalanceFINAL REPORT Ultrasound guided paracentesis , 05/26/2018. Clinical History:Ascites. Sedation: None. Miner Placer: Vishnu Biggs MD Supervisor Maintenance: None. Estimated Blood Loss: < 1 cc. Specimen: 3000 cc of clear yellow fluid, samples sent to laboratory. Technique: Informed consent was obtained. The risks of pain, bleeding, infection, bowel perforation, injury to adjacent structures, and adverse medication reactions were discussed with the patient. After informed consent was obtained, the patient's abdomen was scanned. The right lower quadrant of theabdomen was selected for paracentesis. After the largest fluid pocket area was marked, and the anterior abdominal wall was evaluated with color Doppler to exclude presence of blood vessels traversing the area, the skin was prepped and draped in the usual sterile manner. After local anesthesia was achieved with 1 % lidocaine, a 5 [place]orese one-step catheter was advanced into the peritoneal cavity under ultrasound guidance. After completion of drainage, the catheter was removed. There was no evidence ofcomplication. Impression:Successful ultrasound guided paracentesis. Signed: V[facility]nu [facility] Verified Date/ Time: 05/26/2018 16:05:11 Reading Location: [facility] Radiology Reading Room COMPREHENSIVE METABOLIC [id number] 05:55:00 Test Item Value Reference Range Comments TOTAL PROTEIN (BEAKER) 7.5 gm/dL 6.0-8.5 (test ipwx=073) ALBUMIN (BEAKER) (test 3.9 g/dL 3.5-5.0 wafw=4109) ALKALINE PHOSPHATASE 97 U/L 30-115 (BEAKER) (test ksee=123) BILIRUBIN TOTAL (BEAKER) 2.3 mg/dL 0.1-1.3 (test nwih=188) SODIUM (BEAKER) (test 134 meq/L 135-148 wroz=614) POTASSIUM (BEAKER) (test 3.7 meq/L 3.5-5.5 ufxl=470) CHLORIDE (BEAKER) (test 105 meq/L 98-106 tuod=118) CO2 (BEAKER) (test 16 meq/L 20-31 jpnj=619) BLOOD UREA NITROGEN 25 mg/dL 10-26 (BEAKER) (test xgwz=716) CREATININE (BEAKER) (test 1.74 mg/dL 0.50-1.20 bsau=294) GLUCOSE RANDOM (BEAKER) 116 mg/dL 70-110 (test arpq=312) CALCIUM (BEAKER) (test 9.6 mg/dL 8.5-10.5 zfhg=015) AST (SGOT) (BEAKER) (test 44 U/L 5-40 rqzt=795) ALT (SGPT) (BEAKER) (test 23 U/L 6-50 yqso=011) EGFR (BEAKER) (test 31 mL/min/1.73 sq m ESTIMATED GFR IS NOT daix=8160) ACCURATE CREATININE CLEARANCE IN PREDICTING GLOMERULAR FILTRATION RATE. ESTIMATED GFR IS NOT APPLICABLE FOR DIALYSIS PATIENTS. [id number] 05:51:00 Test Item Value Reference Range Comments POTASSIUM (BEAKER) (test fgwu=881) 3.7 meq/L 3.5-5.5 [id number] 05:51:00 Test Item Value Reference Range Comments MAGNESIUM (BEAKER) (test qdhy=208) 2.1 mg/dL 1.5-3.0 [id number] 05:31:00 Test Item Value Reference Range Comments AMMONIA (BEAKER) (test irmi=265) 134 mol/L 12-72 URINE [id number] 12:48:00 Test Item Value Reference Range Comments CULTURE (BEAKER) (test fnyk=3771) No growth BASIC METABOLIC [id number] 04:24:00 Test Item Value Reference Range Comments SODIUM (BEAKER) (test 131 meq/L 135-148 zenm=363) POTASSIUM (BEAKER) (test 3.5 meq/L 3.5-5.5 mqph=877) CHLORIDE (BEAKER) (test 103 meq/L 98-106 bytn=005) CO2 (BEAKER) (test 17 meq/L 20-31 fqgm=693) BLOOD UREA NITROGEN 27 mg/dL 10-26 (BEAKER) (test jhbz=098) CREATININE (BEAKER) (test 2.29 mg/dL 0.50-1.20 sjmh=578) GLUCOSE RANDOM (BEAKER) 93 mg/dL 70-110 (test crgm=388) CALCIUM (BEAKER) (test 9.2 mg/dL 8.5-10.5 rlca=689) EGFR (BEAKER) (test 23 mL/min/1.73 sq m ESTIMATED GFR IS NOT zuzw=3475) ACCURATE CREATININE CLEARANCE IN PREDICTING GLOMERULAR FILTRATION RATE. ESTIMATED GFR IS NOT APPLICABLE FOR DIALYSIS PATIENTS. CBC W/PLT COUNT & AUTO [id number] 03:55:00 Test Item Value Reference Range Comments WHITE BLOOD CELL COUNT (BEAKER) 4.5 K/ L 4.0-10.0 (test tvxu=900) RED BLOOD CELL COUNT (BEAKER) 3.28 M/ L 4.00-5.00 (test rfjr=687) HEMOGLOBIN (BEAKER) (test 10.0 GM/DL 12.0-15.5 htqx=501) HEMATOCRIT (BEAKER) (test 29.9 % 36.0-46.0 aivw=610) MEAN CORPUSCULAR VOLUME 91.2 fL 82.0-99.0 (BEAKER) (test lutl=026) MEAN CORPUSCULAR HEMOGLOBIN 30.5 pg 27.0-33.0 (BEAKER) (test tkcl=745) MEAN CORPUSCULAR HEMOGLOBIN 33.4 GM/DL 32.0-36.0 CONC (BEAKER) (test dcoe=663) RED CELL DISTRIBUTION WIDTH 17.4 % 12.0-15.0 (BEAKER) (test eaic=795) PLATELET COUNT (BEAKER) (test 105 K/CU MM 150-430 wpoz=788) MEAN PLATELET VOLUME (BEAKER) 10.5 fL 6.0-11.5 MPV-Approximately 20% (test zscb=565) positive bias due to method change. NUCLEATED RED BLOOD CELLS 0 /100 WBC 0-0 (BEAKER) (test ugsq=153) NEUTROPHILS RELATIVE PERCENT 71 % (BEAKER) (test mnll=790) LYMPHOCYTES RELATIVE PERCENT 8 % (BEAKER) (test toih=922) MONOCYTES RELATIVE PERCENT 13 % (BEAKER) (test istw=450) EOSINOPHILS RELATIVE PERCENT 6 % (BEAKER) (test zepq=944) BASOPHILS RELATIVE PERCENT 1 % (BEAKER) (test aplm=045) NEUTROPHILS ABSOLUTE COUNT 3.22 K/ L 1.80-8.00 (BEAKER) (test ywqw=835) LYMPHOCYTES ABSOLUTE COUNT 0.38 K/ L 1.48-4.50 (BEAKER) (test lfyh=527) MONOCYTES ABSOLUTE COUNT 0.57 K/ L 0.00-1.30 (BEAKER) (test ekjd=757) EOSINOPHILS ABSOLUTE COUNT 0.29 K/ L 0.00-0.50 (BEAKER) (test wftw=593) BASOPHILS ABSOLUTE COUNT 0.05 K/ L 0.00-0.20 (BEAKER) (test qbug=486) IMMATURE GRANULOCYTES-RELATIVE 0 % 0-0 PERCENT (BEAKER) (test ujrg=4747) HEPATITIS PANEL, [id number] 20:47:00 Test Item Value Reference Range Comments HEPATITIS A IGM ANTIBODY (BEAKER) (test Nonreactive Nonreactive rquw=426) HEPATITIS B CORE IGM ANTIBODY (BEAKER) (test Nonreactive Nonreactive qeth=963) HEPATITIS C ANTIBODY (BEAKER) (test unrg=505) Nonreactive Nonreactive HEPATITIS B SURFACE ANTIGEN (2) (BEAKER) (test Nonreactive Nonreactive ggwj=0241) ALPHA FETOPROTEIN (AFP), TUMOR [id number] 19:52:00 Test Item Value Reference Range Comments ALPHA-FETOPROTEIN (BEAKER) (test yoei=9220) 5.5 ng/mL <10.0 CREATININE, RANDOM [id number] 14:08:00 Test Item Value Reference Range Comments CREATININE URINE (BEAKER) (test ifvg=655) 42.7 mg/dL Reference Range: No NormalsSODIUM, RANDOM [id number] 14:08:00 Test Item Value Reference Range Comments SODIUM URINE (BEAKER) (test opsr=977) 28 meq/L Reference Range: No NormalsOCCULT BLOOD, [id number] 13:56:00 Test Item Value Reference Range Comments FECAL OCCULT BLOOD (BEAKER) (test pfpi=100) Positive Negative U/S, RENAL, [id number] 11:53:00Reason for exam:->akiFINAL REPORT RENAL ULTRASOUND HISTORY: Acute kidney injury COMPARISON : Abdominal ultrasound 02/11/2018 TECHNIQUE: Real-time ultrasound of the kidneys was performed. FINDINGS: Thekidneys are normal in size. The right kidney measures 11.6 cm in length and the left kidney oqolsbpf45.1 cm in length. Renal cortical thickness measures 1.1 cm on the right and 1.6 cm on the left. Renal echogenicity appears mildly increased bilaterally suggestive of chronic renal parenchymal disease.No renal mass lesion. No hydronephrosis or calculi are seen. Limited Doppler evaluation of the bilateral main renal arteries and veins demonstrated patency. The bladder is unremarkable. Incidental noteis made of cirrhosis with ascites. IMPRESSION: 1. No acute ultrasound abnormalities are visualizedin the kidneys. 2. Increased renal echogenicity bilaterally suggestive of chronic renal parenchymaldisease. Signed: Mariel Greenberg MDReport Verified Date/Time: 05/24/2018 11:53:08 Reading Location: [address] Reading Room BASIC METABOLIC [id number] 05:13:00 Test Item Value Reference Range Comments SODIUM (BEAKER) (test 131 meq/L 135-148 imrq=736) POTASSIUM (BEAKER) (test 2.8 meq/L 3.5-5.5 zfrr=005) CHLORIDE (BEAKER) (test 101 meq/L 98-106 ktzw=113) CO2 (BEAKER) (test 17 meq/L 20-31 uqyx=646) BLOOD UREA NITROGEN 28 mg/dL 10-26 (BEAKER) (test eajg=613) CREATININE (BEAKER) (test 2.85 mg/dL 0.50-1.20 jjoq=837) GLUCOSE RANDOM (BEAKER) 91 mg/dL 70-110 (test ouec=818) CALCIUM (BEAKER) (test 9.0 mg/dL 8.5-10.5 wsre=470) EGFR (BEAKER) (test 18 mL/min/1.73 sq m ESTIMATED GFR IS NOT xogf=3606) ACCURATE CREATININE CLEARANCE IN PREDICTING GLOMERULAR FILTRATION RATE. ESTIMATED GFR IS NOT APPLICABLE FOR DIALYSIS PATIENTS. CBC W/PLT COUNT & AUTO [id number] 04:39:00 Test Item Value Reference Range Comments WHITE BLOOD CELL COUNT (BEAKER) 5.4 K/ L 4.0-10.0 (test yjbi=528) RED BLOOD CELL COUNT (BEAKER) 2.26 M/ L 4.00-5.00 (test acld=913) HEMOGLOBIN (BEAKER) (test 7.2 GM/DL 12.0-15.5 gqsr=120) HEMATOCRIT (BEAKER) (test 21.3 % 36.0-46.0 aljj=501) MEAN CORPUSCULAR VOLUME 94.2 fL 82.0-99.0 (BEAKER) (test gvgc=967) MEAN CORPUSCULAR HEMOGLOBIN 31.9 pg 27.0-33.0 (BEAKER) (test ykok=968) MEAN CORPUSCULAR HEMOGLOBIN 33.8 GM/DL 32.0-36.0 CONC (BEAKER) (test cqbu=749) RED CELL DISTRIBUTION WIDTH 17.1 % 12.0-15.0 (BEAKER) (test wuwj=994) PLATELET COUNT (BEAKER) (test 98 K/CU MM 150-430 owtx=116) MEAN PLATELET VOLUME (BEAKER) 10.4 fL 6.0-11.5 MPV-Approximately 20% (test yfjs=428) positive bias due to method change. NUCLEATED RED BLOOD CELLS 0 /100 WBC 0-0 (BEAKER) (test hfgq=839) NEUTROPHILS RELATIVE PERCENT 77 % (BEAKER) (test rpsc=300) LYMPHOCYTES RELATIVE PERCENT 7 % (BEAKER) (test pnix=995) MONOCYTES RELATIVE PERCENT 10 % (BEAKER) (test fufl=662) EOSINOPHILS RELATIVE PERCENT 5 % (BEAKER) (test gigd=719) BASOPHILS RELATIVE PERCENT 1 % (BEAKER) (test jflh=435) NEUTROPHILS ABSOLUTE COUNT 4.15 K/ L 1.80-8.00 (BEAKER) (test fdpj=286) LYMPHOCYTES ABSOLUTE COUNT 0.35 K/ L 1.48-4.50 (BEAKER) (test mljk=953) MONOCYTES ABSOLUTE COUNT 0.55 K/ L 0.00-1.30 (BEAKER) (test uzht=626) EOSINOPHILS ABSOLUTE COUNT 0.27 K/ L 0.00-0.50 (BEAKER) (test efna=430) BASOPHILS ABSOLUTE COUNT 0.04 K/ L 0.00-0.20 (BEAKER) (test iqiy=333) IMMATURE GRANULOCYTES-RELATIVE 0 % 0-0 PERCENT (BEAKER) (test sdbo=1428) BASIC METABOLIC [id number] 19:11:00 Test Item Value Reference Range Comments SODIUM (BEAKER) (test 130 meq/L 135-148 rbpp=843) POTASSIUM (BEAKER) (test 3.8 meq/L 3.5-5.5 Specimen slightly lasq=394) hemolyzed CHLORIDE (BEAKER) (test 100 meq/L 98-106 vicx=075) CO2 (BEAKER) (test 17 meq/L 20-31 pbgk=270) BLOOD UREA NITROGEN 27 mg/dL 10-26 (BEAKER) (test iscs=153) CREATININE (BEAKER) (test 2.86 mg/dL 0.50-1.20 Specimen slightly rrkl=699) hemolyzed GLUCOSE RANDOM (BEAKER) 97 mg/dL 70-110 (test ozlk=186) CALCIUM (BEAKER) (test 8.8 mg/dL 8.5-10.5 rwyd=146) EGFR (BEAKER) (test 18 mL/min/1.73 sq m ESTIMATED GFR IS NOT hkzh=6360) ACCURATE CREATININE CLEARANCE IN PREDICTING GLOMERULAR FILTRATION RATE. ESTIMATED GFR IS NOT APPLICABLE FOR DIALYSIS PATIENTS. CT, BRAIN, WITHOUT [id number] 17:56:00Reason for exam:->ALTERED MENTAL STATUSReason for exam:->BLOATEDReason for exam:->ABSCESSIsthe patient ?->NoWhat is the patient's sedation requirement?->No SedationFINAL REPORT CT head without contrast 05/23/2018 5:55 PM CLINICAL HISTORY: ALTERED MENTAL STATUSBLOATEDABSCESSaltered mental status TECHNIQUE: Axial noncontrast CT images throughthe head were obtained. This examination was performed [...] persists, further evaluation with MRI is recommended. Signed : Denis Silver Verified Date/Time: 05/23/2018 17:56:33 Reading Location: [facility] Radiology Reading Room COMPREHENSIVE METABOLIC [id number] 16:54:00 Test Item Value Reference Range Comments TOTAL PROTEIN (BEAKER) 7.2 gm/dL 6.0-8.5 Specimen slightly (test wrth=482) hemolyzed ALBUMIN (BEAKER) (test 3.5 g/dL 3.5-5.0 Specimen slightly pcoo=8582) hemolyzed ALKALINE PHOSPHATASE 122 U/L 30-115 (BEAKER) (test nizx=358) BILIRUBIN TOTAL (BEAKER) 1.5 mg/dL 0.1-1.3 Specimen slightly (test tqmj=107) hemolyzed SODIUM (BEAKER) (test 131 meq/L 135-148 ionv=005) POTASSIUM (BEAKER) (test 2.9 meq/L 3.5-5.5 Specimen slightly diuu=664) hemolyzed CHLORIDE (BEAKER) (test 101 meq/L 98-106 pdac=358) CO2 (BEAKER) (test 16 meq/L 20-31 nytl=874) BLOOD UREA NITROGEN 27 mg/dL 10-26 (BEAKER) (test drdw=375) CREATININE (BEAKER) (test 2.98 mg/dL 0.50-1.20 Specimen slightly bwox=192) hemolyzed GLUCOSE RANDOM (BEAKER) 99 mg/dL 70-110 (test csga=024) CALCIUM (BEAKER) (test 8.9 mg/dL 8.5-10.5 muut=105) AST (SGOT) (BEAKER) (test 53 U/L 5-40 Specimen slightly vahn=861) hemolyzed ALT (SGPT) (BEAKER) (test 23 U/L 6-50 Specimen slightly fqca=661) hemolyzed EGFR (BEAKER) (test 17 mL/min/1.73 sq m ESTIMATED GFR IS NOT shhf=2270) ACCURATE CREATININE CLEARANCE IN PREDICTING GLOMERULAR FILTRATION RATE. ESTIMATED GFR IS NOT APPLICABLE FOR DIALYSIS PATIENTS. [id number] 16:38:00 Test Item Value Reference Range Comments LIPASE (BEAKER) (test prql=196) 82 U/L 8-78 PROTHROMBIN [id number] 16:28:00 Test Item Value Reference Range Comments PROTIME (BEAKER) (test teqw=597) 16.1 seconds 11.8-14.4 INR (BEAKER) (test grig=234) 1.3 1.2-1.5 RECOMMENDED COUMADIN/WARFARIN INR THERAPY RANGESSTANDARD DOSE: 2.0 - 3.0 Includes: PROPHYLAXIS forvenous thrombosis, systemic embolization; TREATMENT for venous thrombosis and/or pulmonary embolus.HIGH RISK: Target INR is 2.5-3.5 for patients with mechanical heart valves.CBC W/PLT COUNT & AUTO [id number] 16:26:00 Test Item Value Reference Range Comments WHITE BLOOD CELL COUNT (BEAKER) 7.1 K/ L 4.0-10.0 (test tpzg=803) RED BLOOD CELL COUNT (BEAKER) 2.50 M/ L 4.00-5.00 (test ijwy=765) HEMOGLOBIN (BEAKER) (test 8.0 GM/DL 12.0-15.5 zwoi=241) HEMATOCRIT (BEAKER) (test 24.1 % 36.0-46.0 mgyj=068) MEAN CORPUSCULAR VOLUME 96.4 fL 82.0-99.0 (BEAKER) (test xurw=468) MEAN CORPUSCULAR HEMOGLOBIN 32.0 pg 27.0-33.0 (BEAKER) (test navx=237) MEAN CORPUSCULAR HEMOGLOBIN 33.2 GM/DL 32.0-36.0 CONC (BEAKER) (test andx=084) RED CELL DISTRIBUTION WIDTH 17.3 % 12.0-15.0 (BEAKER) (test ssil=920) PLATELET COUNT (BEAKER) (test 115 K/CU MM 150-430 ocuc=716) MEAN PLATELET VOLUME (BEAKER) 11.3 fL 6.0-11.5 MPV-Approximately 20% (test lije=140) positive bias due to method change. NUCLEATED RED BLOOD CELLS 0 /100 WBC 0-0 (BEAKER) (test dvjx=612) NEUTROPHILS RELATIVE PERCENT 90 % (BEAKER) (test ggkk=365) LYMPHOCYTES RELATIVE PERCENT 4 % (BEAKER) (test gdut=355) MONOCYTES RELATIVE PERCENT 4 % (BEAKER) (test eyeq=017) EOSINOPHILS RELATIVE PERCENT 1 % (BEAKER) (test jqfg=681) BASOPHILS RELATIVE PERCENT 1 % (BEAKER) (test aeqt=348) NEUTROPHILS ABSOLUTE COUNT 6.34 K/ L 1.80-8.00 (BEAKER) (test ogac=410) LYMPHOCYTES ABSOLUTE COUNT 0.25 K/ L 1.48-4.50 (BEAKER) (test allo=461) MONOCYTES ABSOLUTE COUNT 0.30 K/ L 0.00-1.30 (BEAKER) (test zzsv=970) EOSINOPHILS ABSOLUTE COUNT 0.10 K/ L 0.00-0.50 (BEAKER) (test dsie=445) BASOPHILS ABSOLUTE COUNT 0.04 K/ L 0.00-0.20 (BEAKER) (test fjyl=636) IMMATURE GRANULOCYTES-RELATIVE 0 % 0-0 PERCENT (BEAKER) (test moic=5339) RAD, CHEST, 1 VIEW, NON [id number] 16:22:00Reason for exam:->altered mental statusShould this be performed at the bedside?->YesIs the patient ?->NoFINAL REPORT CHEST AP PORTABLE History provided: Altered mental status Heart size normal. Lungs clear and vascularity normal. IMPRESSION: Clear chest. Signed: Gonzalo Serrano MDReport Verified Date/ Time: 05/23/2018 16:22:47 Reading Location: [facility] Radiology Reading Room URINALYSIS W/ [id number] 16:19:00 Test Item Value Reference Range Comments COLOR (BEAKER) (test yeqb=436) Yellow CLARITY (BEAKER) (test aeic=892) Hazy SPECIFIC GRAVITY UA (BEAKER) (test byfu=193) 1.016 1.001-1.035 PH UA (BEAKER) (test sgql=146) 5.0 5.0-8.0 PROTEIN UA (BEAKER) (test hbeo=600) Negative Negative GLUCOSE UA (BEAKER) (test uhaq=750) Negative Negative KETONES UA (BEAKER) (test xxxi=912) Negative Negative BILIRUBIN UA (BEAKER) (test cwrm=392) Negative Negative BLOOD UA (BEAKER) (test omnl=923) Negative Negative NITRITE UA (BEAKER) (test nxbm=091) Negative Negative LEUKOCYTE ESTERASE UA (BEAKER) (test rgdz=505) Negative Negative UROBILINOGEN UA (BEAKER) (test xnmz=926) < mg/dL 0.2-1.0 RBC UA (BEAKER) (test frpz=999) 1 /HPF WBC UA (BEAKER) (test vclk=579) 1 /HPF BACTERIA (BEAKER) (test rkto=891) Rare MUCUS (BEAKER) (test zwyg=3989) Rare SQUAMOUS EPITHELIAL (BEAKER) (test zkav=478) < /HPF HYALINE CASTS (BEAKER) (test fnsx=501) 4 /LPF SOURCE(BEAKER) (test avsb=5184) LACTIC ACID, VENOUS, WHOLE [id number] 16:12:00 Test Item Value Reference Range Comments LACTATE BLOOD VENOUS (2) 2.0 mmol/L 0.5-2.2 Specimen moderately hemolyzed (BEAKER) (test nkht=7891) Effective 12/07/2015: Units/Reference Range ChangeNew: 0.5-2.2 mmol/L Previous: 5 -20 mg/[id number] 16:07:00 Test Item Value Reference Range Comments AMMONIA (BEAKER) (test 90 mol/L 12-72 Specimen moderately hemolyzed mdbd=007) AFB CULTURE + [id number] 00:02:00 Test Item Value Reference Range Comments CULTURE (BEAKER) (test No acid-fast bacilli isolated ylda=0053) in 42 days AFB SMEAR (BEAKER) (test No acid fast bacilli seen qoxz=926) FUNGUS CULTURE + [id number] 12:57:00 Test Item Value Reference Range Comments CULTURE (BEAKER) (test No fungus isolated in 28 days mxzo=5039) FUNGUS SMEAR (BEAKER) (test No fungi seen bqeb=1601) BODY FLUID CULTURE + GRAM [id number] 05:31:00 Test Item Value Reference Range Comments CULTURE (BEAKER) (test wxfc=8840) No growth GRAM STAIN RESULT (BEAKER) (test <1+ WBCs sqtf=7542) GRAM STAIN RESULT (BEAKER) (test No organisms seen ijpk=38456) ANAEROBIC [id number] 02:42:00 Test Item Value Reference Range Comments CULTURE (BEAKER) (test kiwh=5701) No anaerobes isolated POCT-GLUCOSE [id number] 13:58:00 Test Item Value Reference Range Comments POC-GLUCOSE METER (BEAKER) 119 mg/dL 70-[address] [facility] [address] [facility] (test beso=3300) [facility] [address] CBC W/PLT COUNT & AUTO [id number] 09:22:00 Test Item Value Reference Range Comments WHITE BLOOD CELL COUNT (BEAKER) (test mrtd=825) 5.1 K/ L 3.5-10.5 RED BLOOD CELL COUNT (BEAKER) (test chud=825) 2.79 M/ L 3.93-5.22 HEMOGLOBIN (BEAKER) (test gudv=759) 8.8 GM/DL 11.2-15.7 HEMATOCRIT (BEAKER) (test fqea=977) 27.2 % 34.1-44.9 MEAN CORPUSCULAR VOLUME (BEAKER) (test fdsd=847) 97.5 fL 79.4-94.8 MEAN CORPUSCULAR HEMOGLOBIN (BEAKER) (test 31.5 pg 25.6-32.2 dnvi=760) MEAN CORPUSCULAR HEMOGLOBIN CONC (BEAKER) (test 32.4 GM/DL 32.2-35.5 ipgt=395) RED CELL DISTRIBUTION WIDTH (BEAKER) (test 18.8 % 11.7-14.4 hcpn=123) PLATELET COUNT (BEAKER) (test wpxr=124) 86 K/CU MM 150-450 MEAN PLATELET VOLUME (BEAKER) (test utho=420) 12.6 fL 9.4-12.3 NUCLEATED RED BLOOD CELLS (BEAKER) (test 0 /100 WBC 0-0 zmil=499) NEUTROPHILS RELATIVE PERCENT (BEAKER) (test 73 % rjus=620) LYMPHOCYTES RELATIVE PERCENT (BEAKER) (test 7 % eycn=303) MONOCYTES RELATIVE PERCENT (BEAKER) (test 12 % wygz=743) EOSINOPHILS RELATIVE PERCENT (BEAKER) (test 6 % gjqj=933) BASOPHILS RELATIVE PERCENT (BEAKER) (test 1 % uzvp=667) NEUTROPHILS ABSOLUTE COUNT (BEAKER) (test 3.63 K/ L 1.56-6.13 vevh=505) LYMPHOCYTES ABSOLUTE COUNT (BEAKER) (test 0.36 K/ L 1.18-3.74 kohl=075) MONOCYTES ABSOLUTE COUNT (BEAKER) (test oafw=725) 0.61 K/ L 0.24-0.36 EOSINOPHILS ABSOLUTE COUNT (BEAKER) (test 0.31 K/ L 0.04-0.36 mxha=151) BASOPHILS ABSOLUTE COUNT (BEAKER) (test jrrs=555) 0.06 K/ L 0.01-0.08 IMMATURE GRANULOCYTES-RELATIVE PERCENT (BEAKER) 0 % 0-1 (test iqhq=6082) CBC (HEMOGRAM ONLY)2018-02-15 09:16:00 Test Item Value Reference Range Comments WHITE BLOOD CELL COUNT (BEAKER) (test ghpy=937) 5.1 K/ L 3.5-10.5 RED BLOOD CELL COUNT (BEAKER) (test orif=190) 2.79 M/ L 3.93-5.22 HEMOGLOBIN (BEAKER) (test baoq=496) 8.8 GM/DL 11.2-15.7 HEMATOCRIT (BEAKER) (test wysx=881) 27.2 % 34.1-44.9 MEAN CORPUSCULAR VOLUME (BEAKER) (test fnzr=533) 97.5 fL 79.4-94.8 MEAN CORPUSCULAR HEMOGLOBIN (BEAKER) (test 31.5 pg 25.6-32.2 lcbi=572) MEAN CORPUSCULAR HEMOGLOBIN CONC (BEAKER) (test 32.4 GM/DL 32.2-35.5 oswj=376) RED CELL DISTRIBUTION WIDTH (BEAKER) (test 18.8 % 11.7-14.4 fpdm=187) PLATELET COUNT (BEAKER) (test ievi=750) 86 K/CU MM 150-450 MEAN PLATELET VOLUME (BEAKER) (test zuvt=735) 12.6 fL 9.4-12.3 NUCLEATED RED BLOOD CELLS (BEAKER) (test 0 /100 WBC 0-0 dxwu=589) POCT-GLUCOSE [id number] 08:54:00 Test Item Value Reference Range Comments POC-GLUCOSE METER (BEAKER) 135 mg/dL 70-[address] [facility] [address] [facility] (test jxad=0059) [facility] [id number] [id number] 06:41:00 Test Item Value Reference Range Comments PHOSPHORUS (BEAKER) (test vizw=039) 3.5 mg/dL 2.3-4.7 [id number] 06:41:00 Test Item Value Reference Range Comments MAGNESIUM (BEAKER) (test rsjl=393) 1.7 mg/dL 1.6-2.6 BASIC METABOLIC [id number] 06:41:00 Test Item Value Reference Range Comments SODIUM (BEAKER) (test 136 meq/L 136-145 wlob=116) POTASSIUM (BEAKER) (test 3.2 meq/L 3.5-5.1 xzad=067) CHLORIDE (BEAKER) (test 112 meq/L 98-107 cadt=489) CO2 (BEAKER) (test 14 meq/L 22-29 lzdh=128) BLOOD UREA NITROGEN 14 mg/dL 7-21 (BEAKER) (test qjor=882) CREATININE (BEAKER) (test 0.71 mg/dL 0.57-1.25 iujw=641) GLUCOSE RANDOM (BEAKER) 92 mg/dL 70-105 (test pbxb=892) CALCIUM (BEAKER) (test 8.9 mg/dL 8.4-10.2 ehcw=617) EGFR (BEAKER) (test 88 mL/min/1.73 sq m ESTIMATED GFR IS NOT iljn=1473) ACCURATE CREATININE CLEARANCE IN PREDICTING GLOMERULAR FILTRATION RATE. ESTIMATED GFR IS NOT APPLICABLE FOR DIALYSIS PATIENTS. HEPATIC FUNCTION [id number] 06:41:00 Test Item Value Reference Range Comments TOTAL PROTEIN (BEAKER) (test oqst=283) 6.3 gm/dL 6.0-8.3 ALBUMIN (BEAKER) (test dgbn=8683) 3.9 g/dL 3.5-5.0 BILIRUBIN TOTAL (BEAKER) (test yaap=303) 1.7 mg/dL 0.2-1.2 BILIRUBIN DIRECT (BEAKER) (test cxyc=168) 1.0 mg/dL 0.1-0.5 ALKALINE PHOSPHATASE (BEAKER) (test cgrq=334) 126 U/L 40-150 AST (SGOT) (BEAKER) (test nmve=364) 118 U/L 5-34 ALT (SGPT) (BEAKER) (test tnjx=641) 56 U/L 6-55 BLOOD [id number] 06:00:00 Test Item Value Reference Range Comments CULTURE (BEAKER) (test lsuh=2243) No growth in 5 days BLOOD [id number] 06:00:00 Test Item Value Reference Range Comments CULTURE (BEAKER) (test uvsn=2822) No growth in 5 days POCT-GLUCOSE [id number] 21:33:00 Test Item Value Reference Range Comments POC-GLUCOSE METER (BEAKER) 126 mg/dL 70-[address] [facility] [address] [facility] (test qacg=2527) [facility] [address] BODY FLUID CELL COUNT WITH [id number] 20:39:00 Test Item Value Reference Range Comments APPEARANCE FLUID (BEAKER) (test ckdm=023) Bloody Clear COLOR FLUID (BEAKER) (test arra=545) Red Colorless, Straw RBC FLUID (BEAKER) (test zgqa=411) 18270 /cu mm <=1 ADJUSTED WBC FLUID (BEAKER) (test asei=7432) 206 /cu mm <=5 LINING CELLS (BEAKER) (test jxkp=8384) 4 /cu mm <=1 NEUTROPHILS FLUID (BEAKER) (test zaac=4021) 50 % LYMPHS FLUID (BEAKER) (test cudb=489) 5 % MONO/MACROPHAGE FLUID (BEAKER) (test uftq=545) 45 % EOSINOPHILS FLUID (BEAKER) (test mree=092) 0 % BASO FLUID (BEAKER) (test nfxv=940) 0 % CONTAINER BODY FLUID (BEAKER) (test tqti=5609) EDTA Tube TISSUE [id number] 18:33:00Surgical Pathology Report Case: [id number] Authorizing Provider: Tamera Mayorga MD Collected: 02/11/2018 1338 Ordering Location: [place] [address] ICU Received: 02/11/2018 1613 Pathologist: Herminia Hope MD Specimen: Hernia Sac, Umbilical SKIN AND HERNIA SAC, EXCISION:- SKIN WITH ULCER, NECROSIS, HERNIA WITH FIBROSIS, ADHESION AND CHRONIC INFLAMMATION Signing Pathologist Direct Phone Line: [phone] 72207Uhgtifkylwqw umbilical hernia Hernia sac umbilical The specimen is received in a formalin-filled container labeled with the patient's information and labeled "umbilical hernial sac" and consists of hemorrhagic membranous tissue measuring 6 x 3 x 0.2 cm with overlying brown skin measuring 5.5 x 3 x 0.3 cm, submitted in A1 and A2. There are no areas of suspicion. CG/ew PerformedPOCT-GLUCOSE [id number] 18:27:00 Test Item Value Reference Range Comments POC-GLUCOSE METER (BEAKER) 152 mg/dL 70-110 TESTED AT [address] (test fwsc=9755) [facility] [address] U/S, [id number] 17:34:00Send fluid for cell ct \\T\\ diff, C\\T\\ SReason for exam:->poss bile leakShould this be performed atthe bedside?-> YesFINAL REPORT Paracentesis: Performing MD: Bela Rios M.D.Preoperative Diagnosis:AscitesPostoperative Diagnosis: AscitesAssistant: noneSpecimen: As [...] serosanguineous fluid was removed. Signed: Bela Rios MDReport Verified Date/Time: 02/14/2018 17:34:56 Reading Location: [facility] B1 [id number] Ultrasound Reading Room [id number] 15:56:00 Test Item Value Reference Range Comments PARTIAL THROMBOPLASTIN TIME (BEAKER) (test 28.9 seconds 22.5-36.0 wamq=980) PROTHROMBIN [id number] 15:55:00 Test Item Value Reference Range Comments PROTIME (BEAKER) (test jigh=639) 18.3 seconds 11.7-14.7 INR (BEAKER) (test uqhc=491) 1.5 <=5.9 RECOMMENDED COUMADIN/WARFARIN INR THERAPY RANGESSTANDARD DOSE: 2.0 - 3.0 Includes: PROPHYLAXIS forvenous thrombosis, systemic embolization; TREATMENT for venous thrombosis and/or pulmonary embolus.HIGH RISK: Target INR is 2.5-3.5 for patients with mechanical heart valves.CBC W/PLT COUNT & AUTO [id number] 15:49:00 Test Item Value Reference Range Comments WHITE BLOOD CELL COUNT (BEAKER) (test klxt=800) 6.5 K/ L 3.5-10.5 RED BLOOD CELL COUNT (BEAKER) (test fmdf=613) 2.69 M/ L 3.93-5.22 HEMOGLOBIN (BEAKER) (test fpjr=764) 8.5 GM/DL 11.2-15.7 HEMATOCRIT (BEAKER) (test hnuo=818) 25.9 % 34.1-44.9 MEAN CORPUSCULAR VOLUME (BEAKER) (test pegx=961) 96.3 fL 79.4-94.8 MEAN CORPUSCULAR HEMOGLOBIN (BEAKER) (test 31.6 pg 25.6-32.2 mcfo=034) MEAN CORPUSCULAR HEMOGLOBIN CONC (BEAKER) (test 32.8 GM/DL 32.2-35.5 ljbu=903) RED CELL DISTRIBUTION WIDTH (BEAKER) (test 19.0 % 11.7-14.4 bilp=508) PLATELET COUNT (BEAKER) (test qxuy=057) 63 K/CU MM 150-450 MEAN PLATELET VOLUME (BEAKER) (test eftk=968) 11.6 fL 9.4-12.3 NUCLEATED RED BLOOD CELLS (BEAKER) (test 0 /100 WBC 0-0 zyej=623) NEUTROPHILS RELATIVE PERCENT (BEAKER) (test 82 % nzpx=634) LYMPHOCYTES RELATIVE PERCENT (BEAKER) (test 4 % tkyk=695) MONOCYTES RELATIVE PERCENT (BEAKER) (test 9 % njuj=258) EOSINOPHILS RELATIVE PERCENT (BEAKER) (test 3 % bdvn=674) BASOPHILS RELATIVE PERCENT (BEAKER) (test 1 % vjvl=067) NEUTROPHILS ABSOLUTE COUNT (BEAKER) (test 5.30 K/ L 1.56-6.13 nokt=327) LYMPHOCYTES ABSOLUTE COUNT (BEAKER) (test 0.26 K/ L 1.18-3.74 lilz=437) MONOCYTES ABSOLUTE COUNT (BEAKER) (test enfx=722) 0.59 K/ L 0.24-0.36 EOSINOPHILS ABSOLUTE COUNT (BEAKER) (test 0.20 K/ L 0.04-0.36 szhj=605) BASOPHILS ABSOLUTE COUNT (BEAKER) (test cnse=969) 0.06 K/ L 0.01-0.08 IMMATURE GRANULOCYTES-RELATIVE PERCENT (BEAKER) 1 % 0-1 (test rswt=7432) POCT-GLUCOSE [id number] 13:10:00 Test Item Value Reference Range Comments POC-GLUCOSE METER (BEAKER) 138 mg/dL 70-110 TESTED AT [address] (test rsny=9029) [facility] [address] SURGICALLY OBTAINED CULTURE + GRAM [id number] 11:29:00 Test Item Value Reference Range Comments CULTURE (BEAKER) (test cqtr=1980) No growth GRAM STAIN RESULT (BEAKER) (test <1+ WBCs ugks=4613) GRAM STAIN RESULT (BEAKER) (test No organisms seen semg=49379) CBC W/PLT COUNT & AUTO [id number] 09:31:00 Test Item Value Reference Range Comments WHITE BLOOD CELL COUNT (BEAKER) (test fila=530) 5.3 K/ L 3.5-10.5 RED BLOOD CELL COUNT (BEAKER) (test kbpr=302) 2.76 M/ L 3.93-5.22 HEMOGLOBIN (BEAKER) (test pvuo=474) 8.5 GM/DL 11.2-15.7 HEMATOCRIT (BEAKER) (test qodi=721) 26.7 % 34.1-44.9 MEAN CORPUSCULAR VOLUME (BEAKER) (test zmxl=111) 96.7 fL 79.4-94.8 MEAN CORPUSCULAR HEMOGLOBIN (BEAKER) (test 30.8 pg 25.6-32.2 ybuh=751) MEAN CORPUSCULAR HEMOGLOBIN CONC (BEAKER) (test 31.8 GM/DL 32.2-35.5 ckmr=250) RED CELL DISTRIBUTION WIDTH (BEAKER) (test 19.1 % 11.7-14.4 htev=148) PLATELET COUNT (BEAKER) (test owoz=169) 82 K/CU MM 150-450 MEAN PLATELET VOLUME (BEAKER) (test sapl=762) 11.5 fL 9.4-12.3 NUCLEATED RED BLOOD CELLS (BEAKER) (test 0 /100 WBC 0-0 xdeg=423) NEUTROPHILS RELATIVE PERCENT (BEAKER) (test 79 % wobe=276) LYMPHOCYTES RELATIVE PERCENT (BEAKER) (test 6 % sdlr=085) MONOCYTES RELATIVE PERCENT (BEAKER) (test 10 % lald=724) EOSINOPHILS RELATIVE PERCENT (BEAKER) (test 3 % rxzx=483) BASOPHILS RELATIVE PERCENT (BEAKER) (test 1 % txzu=920) NEUTROPHILS ABSOLUTE COUNT (BEAKER) (test 4.21 K/ L 1.56-6.13 mcmi=438) LYMPHOCYTES ABSOLUTE COUNT (BEAKER) (test 0.33 K/ L 1.18-3.74 ybva=294) MONOCYTES ABSOLUTE COUNT (BEAKER) (test inpm=809) 0.55 K/ L 0.24-0.36 EOSINOPHILS ABSOLUTE COUNT (BEAKER) (test 0.17 K/ L 0.04-0.36 plma=414) BASOPHILS ABSOLUTE COUNT (BEAKER) (test soiw=425) 0.05 K/ L 0.01-0.08 IMMATURE GRANULOCYTES-RELATIVE PERCENT (BEAKER) 1 % 0-1 (test ugav=3113) POCT-GLUCOSE [id number] 08:00:00 Test Item Value Reference Range Comments POC-GLUCOSE METER (BEAKER) 100 mg/dL 70-[address] [facility] [address] [facility] (test mxxn=9259) [facility] [address] [id number] 07:25:00 Test Item Value Reference Range Comments PHOSPHORUS (BEAKER) (test galk=615) 3.0 mg/dL 2.3-4.7 [id number] 07:25:00 Test Item Value Reference Range Comments MAGNESIUM (BEAKER) (test wfox=429) 2.0 mg/dL 1.6-2.6 HEPATIC FUNCTION [id number] 07:25:00 Test Item Value Reference Range Comments TOTAL PROTEIN (BEAKER) (test rbyq=920) 6.5 gm/dL 6.0-8.3 ALBUMIN (BEAKER) (test fedj=2957) 4.2 g/dL 3.5-5.0 BILIRUBIN TOTAL (BEAKER) (test wpmp=418) 1.7 mg/dL 0.2-1.2 BILIRUBIN DIRECT (BEAKER) (test mvga=253) 1.1 mg/dL 0.1-0.5 ALKALINE PHOSPHATASE (BEAKER) (test unmo=819) 140 U/L 40-150 AST (SGOT) (BEAKER) (test ykiw=943) 182 U/L 5-34 ALT (SGPT) (BEAKER) (test crsb=086) 58 U/L 6-55 POCT-GLUCOSE [id number] 23:06:00 Test Item Value Reference Range Comments POC-GLUCOSE METER (BEAKER) 106 mg/dL 70-110 TESTED AT [address] (test ykqp=6587) [facility] [address] POCT-GLUCOSE [id number] 17:34:00 Test Item Value Reference Range Comments POC-GLUCOSE METER (BEAKER) 149 mg/dL 70-110 TESTED AT [address] (test ibcv=9989) [facility] [address] POCT-GLUCOSE [id number] 11:39:00 Test Item Value Reference Range Comments POC-GLUCOSE METER (BEAKER) 117 mg/dL 70-110 TESTED AT [address] (test vntf=3839) [facility] [address] POCT-GLUCOSE [id number] 08:13:00 Test Item Value Reference Range Comments POC-GLUCOSE METER (BEAKER) 126 mg/dL 70-110 TESTED AT [address] (test uytv=9758) [facility] [address] [id number] 06:41:00 Test Item Value Reference Range Comments PHOSPHORUS (BEAKER) (test trez=808) 2.1 mg/dL 2.3-4.7 [id number] 06:41:00 Test Item Value Reference Range Comments MAGNESIUM (BEAKER) (test oqch=505) 2.1 mg/dL 1.6-2.6 HEPATIC FUNCTION [id number] 06:41:00 Test Item Value Reference Range Comments TOTAL PROTEIN (BEAKER) (test iazu=304) 6.6 gm/dL 6.0-8.3 ALBUMIN (BEAKER) (test lrov=9993) 4.5 g/dL 3.5-5.0 BILIRUBIN TOTAL (BEAKER) (test pwht=853) 1.0 mg/dL 0.2-1.2 BILIRUBIN DIRECT (BEAKER) (test nvag=947) 0.6 mg/dL 0.1-0.5 ALKALINE PHOSPHATASE (BEAKER) (test bgjn=120) 56 U/L 40-150 AST (SGOT) (BEAKER) (test vnxv=676) 51 U/L 5-34 ALT (SGPT) (BEAKER) (test rqjf=912) 17 U/L 6-55 COMPREHENSIVE METABOLIC [id number] 06:41:00 Test Item Value Reference Range Comments TOTAL PROTEIN (BEAKER) 6.6 gm/dL 6.0-8.3 (test vudg=460) ALBUMIN (BEAKER) (test 4.5 g/dL 3.5-5.0 cvdv=9992) ALKALINE PHOSPHATASE 56 U/L 40-150 (BEAKER) (test cnqt=803) BILIRUBIN TOTAL (BEAKER) 1.0 mg/dL 0.2-1.2 (test ltum=093) SODIUM (BEAKER) (test 138 meq/L 136-145 fnwe=849) POTASSIUM (BEAKER) (test 3.3 meq/L 3.5-5.1 awqk=122) CHLORIDE (BEAKER) (test 114 meq/L 98-107 dopo=924) CO2 (BEAKER) (test 15 meq/L 22-29 ejhq=332) BLOOD UREA NITROGEN 15 mg/dL 7-21 (BEAKER) (test lacg=035) CREATININE (BEAKER) (test 0.83 mg/dL 0.57-1.25 mmrq=604) GLUCOSE RANDOM (BEAKER) 108 mg/dL 70-105 (test ktyy=339) CALCIUM (BEAKER) (test 9.0 mg/dL 8.4-10.2 qxrz=281) AST (SGOT) (BEAKER) (test 51 U/L 5-34 vcxw=684) ALT (SGPT) (BEAKER) (test 17 U/L 6-55 hmwl=068) EGFR (BEAKER) (test 73 mL/min/1.73 sq m ESTIMATED GFR IS NOT kwwb=9596) ACCURATE CREATININE CLEARANCE IN PREDICTING GLOMERULAR FILTRATION RATE. ESTIMATED GFR IS NOT APPLICABLE FOR DIALYSIS PATIENTS. CBC W/PLT COUNT & AUTO [id number] 06:25:00 Test Item Value Reference Range Comments WHITE BLOOD CELL COUNT (BEAKER) (test fngy=435) 6.7 K/ L 3.5-10.5 RED BLOOD CELL COUNT (BEAKER) (test dtiy=778) 2.17 M/ L 3.93-5.22 HEMOGLOBIN (BEAKER) (test rlue=376) 6.8 GM/DL 11.2-15.7 HEMATOCRIT (BEAKER) (test qkws=807) 21.8 % 34.1-44.9 MEAN CORPUSCULAR VOLUME (BEAKER) (test onzd=386) 100.5 fL 79.4-94.8 MEAN CORPUSCULAR HEMOGLOBIN (BEAKER) (test 31.3 pg 25.6-32.2 rsoq=950) MEAN CORPUSCULAR HEMOGLOBIN CONC (BEAKER) (test 31.2 GM/DL 32.2-35.5 mvha=195) RED CELL DISTRIBUTION WIDTH (BEAKER) (test 19.9 % 11.7-14.4 csfw=244) PLATELET COUNT (BEAKER) (test jgkf=937) 84 K/CU MM 150-450 MEAN PLATELET VOLUME (BEAKER) (test meca=274) 11.1 fL 9.4-12.3 NUCLEATED RED BLOOD CELLS (BEAKER) (test 0 /100 WBC 0-0 fjjl=347) NEUTROPHILS RELATIVE PERCENT (BEAKER) (test 84 % odft=389) LYMPHOCYTES RELATIVE PERCENT (BEAKER) (test 4 % wmdt=710) MONOCYTES RELATIVE PERCENT (BEAKER) (test 12 % qjiu=622) EOSINOPHILS RELATIVE PERCENT (BEAKER) (test 0 % vpph=818) BASOPHILS RELATIVE PERCENT (BEAKER) (test 0 % eccv=846) NEUTROPHILS ABSOLUTE COUNT (BEAKER) (test 5.59 K/ L 1.56-6.13 nvhh=526) LYMPHOCYTES ABSOLUTE COUNT (BEAKER) (test 0.25 K/ L 1.18-3.74 osxf=510) MONOCYTES ABSOLUTE COUNT (BEAKER) (test vtdg=143) 0.77 K/ L 0.24-0.36 EOSINOPHILS ABSOLUTE COUNT (BEAKER) (test 0.02 K/ L 0.04-0.36 bgxd=635) BASOPHILS ABSOLUTE COUNT (BEAKER) (test xhre=765) 0.00 K/ L 0.01-0.08 IMMATURE GRANULOCYTES-RELATIVE PERCENT (BEAKER) 1 % 0-1 (test lndj=0300) SPIN/CONCENTRATION [id number] 15:23:00 Test Item Value Reference Range Comments CONCENTRATION CHARGED (BEAKER) (test jwwq=1614) Done POCT-GLUCOSE [id number] 08:15:00 Test Item Value Reference Range Comments POC-GLUCOSE METER (BEAKER) 147 mg/dL 70-[address] [facility] [address] [facility] (test updq=6105) [facility] [address] HIV-1 ANTIGEN WITH HIV-1/2 [id number] 06:57:00 Test Item Value Reference Range Comments HIV-1 ANTIGEN WITH HIV 1\\T\\2 ANTIBODY (2) Nonreactive Nonreactive (BEAKER) (test mzfk=1990) [id number] 06:35:00 Test Item Value Reference Range Comments PHOSPHORUS (BEAKER) (test oxap=679) 2.8 mg/dL 2.3-4.7 [id number] 06:35:00 Test Item Value Reference Range Comments MAGNESIUM (BEAKER) (test tzit=204) 1.9 mg/dL 1.6-2.6 BASIC METABOLIC [id number] 06:35:00 Test Item Value Reference Range Comments SODIUM (BEAKER) (test 133 meq/L 136-145 rgbz=513) POTASSIUM (BEAKER) (test 3.9 meq/L 3.5-5.1 tklv=558) CHLORIDE (BEAKER) (test 111 meq/L 98-107 jfrd=877) CO2 (BEAKER) (test 13 meq/L 22-29 zaec=997) BLOOD UREA NITROGEN 18 mg/dL 7-21 (BEAKER) (test ztjs=234) CREATININE (BEAKER) (test 0.86 mg/dL 0.57-1.25 wail=919) GLUCOSE RANDOM (BEAKER) 142 mg/dL 70-105 (test rvui=958) CALCIUM (BEAKER) (test 8.7 mg/dL 8.4-10.2 mdym=436) EGFR (BEAKER) (test 70 mL/min/1.73 sq m ESTIMATED GFR IS NOT wmrw=2475) ACCURATE CREATININE CLEARANCE IN PREDICTING GLOMERULAR FILTRATION RATE. ESTIMATED GFR IS NOT APPLICABLE FOR DIALYSIS PATIENTS. HEPATIC FUNCTION [id number] 06:35:00 Test Item Value Reference Range Comments TOTAL PROTEIN (BEAKER) (test dxzo=839) 6.4 gm/dL 6.0-8.3 ALBUMIN (BEAKER) (test zrqv=0489) 4.0 g/dL 3.5-5.0 BILIRUBIN TOTAL (BEAKER) (test rzgn=248) 1.5 mg/dL 0.2-1.2 BILIRUBIN DIRECT (BEAKER) (test fumh=382) 0.9 mg/dL 0.1-0.5 ALKALINE PHOSPHATASE (BEAKER) (test tsiy=269) 46 U/L 40-150 AST (SGOT) (BEAKER) (test qstb=367) 32 U/L 5-34 ALT (SGPT) (BEAKER) (test twtx=146) 12 U/L 6-55 CBC W/PLT COUNT & AUTO [id number] 06:26:00 Test Item Value Reference Range Comments WHITE BLOOD CELL COUNT (BEAKER) (test mzpg=559) 6.4 K/ L 3.5-10.5 RED BLOOD CELL COUNT (BEAKER) (test mesm=198) 2.47 M/ L 3.93-5.22 HEMOGLOBIN (BEAKER) (test fgji=526) 7.5 GM/DL 11.2-15.7 HEMATOCRIT (BEAKER) (test onnr=884) 24.3 % 34.1-44.9 MEAN CORPUSCULAR VOLUME (BEAKER) (test brbz=054) 98.4 fL 79.4-94.8 MEAN CORPUSCULAR HEMOGLOBIN (BEAKER) (test 30.4 pg 25.6-32.2 roks=514) MEAN CORPUSCULAR HEMOGLOBIN CONC (BEAKER) (test 30.9 GM/DL 32.2-35.5 snvw=159) RED CELL DISTRIBUTION WIDTH (BEAKER) (test 20.0 % 11.7-14.4 guzw=557) PLATELET COUNT (BEAKER) (test djif=092) 85 K/CU MM 150-450 MEAN PLATELET VOLUME (BEAKER) (test uqzd=507) 11.3 fL 9.4-12.3 NUCLEATED RED BLOOD CELLS (BEAKER) (test 0 /100 WBC 0-0 fjyi=612) NEUTROPHILS RELATIVE PERCENT (BEAKER) (test 92 % luhk=987) LYMPHOCYTES RELATIVE PERCENT (BEAKER) (test 3 % peoc=575) MONOCYTES RELATIVE PERCENT (BEAKER) (test 5 % mmge=317) EOSINOPHILS RELATIVE PERCENT (BEAKER) (test 0 % viuv=934) BASOPHILS RELATIVE PERCENT (BEAKER) (test 0 % rjfp=037) NEUTROPHILS ABSOLUTE COUNT (BEAKER) (test 5.89 K/ L 1.56-6.13 slma=774) LYMPHOCYTES ABSOLUTE COUNT (BEAKER) (test 0.19 K/ L 1.18-3.74 lbmq=311) MONOCYTES ABSOLUTE COUNT (BEAKER) (test wdyv=386) 0.31 K/ L 0.24-0.36 EOSINOPHILS ABSOLUTE COUNT (BEAKER) (test 0.00 K/ L 0.04-0.36 dxtg=229) BASOPHILS ABSOLUTE COUNT (BEAKER) (test mycw=442) 0.00 K/ L 0.01-0.08 IMMATURE GRANULOCYTES-RELATIVE PERCENT (BEAKER) 1 % 0-1 (test jctl=9160) POCT-GLUCOSE [id number] 00:47:00 Test Item Value Reference Range Comments POC-GLUCOSE METER (BEAKER) 220 mg/dL 70-110 TESTED AT [address] (test zqsu=9078) [facility] [address] [id number] 19:57:00 Test Item Value Reference Range Comments PHOSPHORUS (BEAKER) (test ujhy=602) 2.9 mg/dL 2.3-4.7 [id number] 19:57:00 Test Item Value Reference Range Comments MAGNESIUM (BEAKER) (test qhli=003) 1.7 mg/dL 1.6-2.6 [id number] 16:27:00 Test Item Value Reference Range Comments PROTIME (BEAKER) (test nkkh=785) 18.7 seconds 11.7-14.7 INR (BEAKER) (test habu=802) 1.6 <=5.9 PARTIAL THROMBOPLASTIN TIME (BEAKER) (test 36.5 seconds 22.5-36.0 kmzm=880) RECOMMENDED COUMADIN/WARFARIN INR THERAPY RANGESSTANDARD DOSE: 2.0 - 3.0 Includes: PROPHYLAXIS forvenous thrombosis, systemic embolization; TREATMENT for venous thrombosis and/or pulmonary embolus.HIGH RISK: Target INR is 2.5-3.5 for patients with mechanical heart valves.BASIC METABOLIC [id number] 16:24: 00 Test Item Value Reference Range Comments SODIUM (BEAKER) (test 136 meq/L 136-145 bxkt=333) POTASSIUM (BEAKER) (test 3.7 meq/L 3.5-5.1 oldh=695) CHLORIDE (BEAKER) (test 113 meq/L 98-107 cbix=098) CO2 (BEAKER) (test 16 meq/L 22-29 sotg=394) BLOOD UREA NITROGEN 20 mg/dL 7-21 (BEAKER) (test ehnv=425) CREATININE (BEAKER) (test 1.03 mg/dL 0.57-1.25 iiai=332) GLUCOSE RANDOM (BEAKER) 133 mg/dL 70-105 (test vfoh=886) CALCIUM (BEAKER) (test 8.2 mg/dL 8.4-10.2 slsi=559) EGFR (BEAKER) (test 57 mL/min/1.73 sq m ESTIMATED GFR IS NOT fgpi=4405) ACCURATE CREATININE CLEARANCE IN PREDICTING GLOMERULAR FILTRATION RATE. ESTIMATED GFR IS NOT APPLICABLE FOR DIALYSIS PATIENTS. CBC W/PLT COUNT & AUTO [id number] 16:00:00 Test Item Value Reference Range Comments WHITE BLOOD CELL COUNT (BEAKER) (test umqc=163) 4.6 K/ L 3.5-10.5 RED BLOOD CELL COUNT (BEAKER) (test qblg=152) 2.57 M/ L 3.93-5.22 HEMOGLOBIN (BEAKER) (test vjaz=135) 7.9 GM/DL 11.2-15.7 HEMATOCRIT (BEAKER) (test fpqw=017) 24.9 % 34.1-44.9 MEAN CORPUSCULAR VOLUME (BEAKER) (test gfgy=572) 96.9 fL 79.4-94.8 MEAN CORPUSCULAR HEMOGLOBIN (BEAKER) (test 30.7 pg 25.6-32.2 raij=929) MEAN CORPUSCULAR HEMOGLOBIN CONC (BEAKER) (test 31.7 GM/DL 32.2-35.5 dyaf=259) RED CELL DISTRIBUTION WIDTH (BEAKER) (test 20.0 % 11.7-14.4 jqft=146) PLATELET COUNT (BEAKER) (test dvjl=954) 101 K/CU MM 150-450 MEAN PLATELET VOLUME (BEAKER) (test njvq=083) 10.5 fL 9.4-12.3 NUCLEATED RED BLOOD CELLS (BEAKER) (test 0 /100 WBC 0-0 hfmc=100) NEUTROPHILS RELATIVE PERCENT (BEAKER) (test 94 % nrib=513) LYMPHOCYTES RELATIVE PERCENT (BEAKER) (test 3 % pldy=601) MONOCYTES RELATIVE PERCENT (BEAKER) (test 2 % nuhk=558) EOSINOPHILS RELATIVE PERCENT (BEAKER) (test 1 % jesg=646) BASOPHILS RELATIVE PERCENT (BEAKER) (test 1 % ilhg=986) NEUTROPHILS ABSOLUTE COUNT (BEAKER) (test 4.31 K/ L 1.56-6.13 ycuh=670) LYMPHOCYTES ABSOLUTE COUNT (BEAKER) (test 0.12 K/ L 1.18-3.74 txtn=420) MONOCYTES ABSOLUTE COUNT (BEAKER) (test 0.10 K/ L 0.24-0.36 hmjy=926) EOSINOPHILS ABSOLUTE COUNT (BEAKER) (test 0.03 K/ L 0.04-0.36 njqx=184) BASOPHILS ABSOLUTE COUNT (BEAKER) (test 0.03 K/ L 0.01-0.08 qptc=925) IMMATURE GRANULOCYTES-RELATIVE PERCENT (BEAKER) 0 % 0-1 (test fkiq=2777) HGB/HCT (H&H) - STAT [id number] 13:33:00 Test Item Value Reference Range Comments HEMOGLOBIN (BEAKER) (test rwhu=806) 8.7 g/dL 12.0-15.0 HEMATOCRIT (BEAKER) (test irix=107) 26.0 % 36.0-45.0 THIS IS A VENOUS SAMPLECALCIUM, [id number] 13:33:00 Test Item Value Reference Range Comments CALCIUM IONIZED (BEAKER) (test pgnh=565) 1.07 mmol/L 1.12-1.27 PH, BLOOD (BEAKER) (test utbq=8257) 7.28 GLUCOSE-STAT [id number] 13:33:00 Test Item Value Reference Range Comments GLUCOSE RANDOM (BEAKER) (test kgkt=647) 122 mg/dL 70-110 THIS IS A VENOUS SAMPLETHIS IS A VENOUS SAMPLETHIS IS A VENOUS SAMPLESODIUM NA- STAT [id number] 13:32:00 Test Item Value Reference Range Comments SODIUM (BEAKER) (test xioi=946) 135 meq/L 135-148 THIS IS A VENOUS SAMPLETHIS IS A VENOUS SAMPLETHIS IS A VENOUS SAMPLEPOTASSIUM- STAT [id number] 13:32:00 Test Item Value Reference Range Comments POTASSIUM (BEAKER) (test tsjn=818) 3.9 meq/L 3.6-5.5 THIS IS A VENOUS SAMPLETHIS IS A VENOUS SAMPLETHIS IS A VENOUS SAMPLEU/S, ABDOMINAL, [id number] 09:32:00Reason for exam:->ascites, acute renal failure, hydronephrosisShould [...] presumed secondary to hypoproteinemia. Signed: Bela Rios MDReport Verified Date/Time: 02/11/2018 09:32:36 Reading Location: [address] Ultrasound Reading Room Electronically signed by: BELA RIOS M.D. on 05/2018 09:32 AMPOCT-GLUCOSE [id number] 08:05:00 Test Item Value Reference Range Comments POC-GLUCOSE METER (BEAKER) 117 mg/dL 70-[address] [facility] [address] [facility] (test uymo=4999) [facility] [address] COMPREHENSIVE METABOLIC [id number] 07:53:00 Test Item Value Reference Range Comments TOTAL PROTEIN (BEAKER) 6.1 gm/dL 6.0-8.3 (test ggyd=505) ALBUMIN (BEAKER) (test 3.2 g/dL 3.5-5.0 ucit=0096) ALKALINE PHOSPHATASE 58 U/L 40-150 (BEAKER) (test salh=531) BILIRUBIN TOTAL (BEAKER) 1.6 mg/dL 0.2-1.2 (test bqxo=502) SODIUM (BEAKER) (test 135 meq/L 136-145 ebap=627) POTASSIUM (BEAKER) (test 3.5 meq/L 3.5-5.1 zqyz=243) CHLORIDE (BEAKER) (test 111 meq/L 98-107 hgvh=692) CO2 (BEAKER) (test 17 meq/L 22-29 uqxd=687) BLOOD UREA NITROGEN 25 mg/dL 7-21 (BEAKER) (test wrgd=024) CREATININE (BEAKER) (test 1.29 mg/dL 0.57-1.25 proy=131) GLUCOSE RANDOM (BEAKER) 110 mg/dL 70-105 (test pssw=663) CALCIUM (BEAKER) (test 8.5 mg/dL 8.4-10.2 mjdt=959) AST (SGOT) (BEAKER) (test 39 U/L 5-34 idwu=553) ALT (SGPT) (BEAKER) (test 13 U/L 6-55 qvfh=410) EGFR (BEAKER) (test 44 mL/min/1.73 sq m ESTIMATED GFR IS NOT rwad=6893) ACCURATE CREATININE CLEARANCE IN PREDICTING GLOMERULAR FILTRATION RATE. ESTIMATED GFR IS NOT APPLICABLE FOR DIALYSIS PATIENTS. CT, [id number] 07:50:00FINAL REPORT HISTORY : Hernia, complicated Technique: [...] or underdistention. 5. Cholelithiasis. Signed: Jesse Hathaway Verified Date/ Time: 02/11/2018 07:50:19 Reading Location: [facility] Diagnostic Imaging Reading Room - [place] [id number] Electronically signed by: JESSE HATHAWAY M.D. on 2017 07:50 [id number] 07:06:00 Test Item Value Reference Range Comments PROTIME (BEAKER) (test tgvu=306) 17.3 seconds 11.7-14.7 INR (BEAKER) (test wgjw=287) 1.4 <=5.9 PARTIAL THROMBOPLASTIN TIME (BEAKER) (test 34.7 seconds 22.5-36.0 qvux=468) RECOMMENDED COUMADIN/WARFARIN INR THERAPY RANGESSTANDARD DOSE: 2.0 - 3.0 Includes: PROPHYLAXIS forvenous thrombosis, systemic embolization; TREATMENT for venous thrombosis and/or pulmonary embolus.HIGH RISK: Target INR is 2.5-3.5 for patients with mechanical heart valves.CBC W/PLT COUNT & AUTO [id number] 06:22:00 Test Item Value Reference Range Comments WHITE BLOOD CELL COUNT (BEAKER) (test yoex=873) 4.1 K/ L 3.5-10.5 RED BLOOD CELL COUNT (BEAKER) (test rgch=773) 2.36 M/ L 3.93-5.22 HEMOGLOBIN (BEAKER) (test ycrz=290) 7.5 GM/DL 11.2-15.7 HEMATOCRIT (BEAKER) (test bqdt=377) 22.9 % 34.1-44.9 MEAN CORPUSCULAR VOLUME (BEAKER) (test lobl=918) 97.0 fL 79.4-94.8 MEAN CORPUSCULAR HEMOGLOBIN (BEAKER) (test 31.8 pg 25.6-32.2 xvsw=610) MEAN CORPUSCULAR HEMOGLOBIN CONC (BEAKER) (test 32.8 GM/DL 32.2-35.5 xvjn=535) RED CELL DISTRIBUTION WIDTH (BEAKER) (test 21.1 % 11.7-14.4 ogkz=033) PLATELET COUNT (BEAKER) (test uvpk=616) 131 K/CU MM 150-450 MEAN PLATELET VOLUME (BEAKER) (test cheq=711) 11.0 fL 9.4-12.3 NUCLEATED RED BLOOD CELLS (BEAKER) (test 0 /100 WBC 0-0 cbvy=827) NEUTROPHILS RELATIVE PERCENT (BEAKER) (test 69 % tksf=565) LYMPHOCYTES RELATIVE PERCENT (BEAKER) (test 11 % mvcz=472) MONOCYTES RELATIVE PERCENT (BEAKER) (test 15 % yytt=313) EOSINOPHILS RELATIVE PERCENT (BEAKER) (test 4 % vqvq=777) BASOPHILS RELATIVE PERCENT (BEAKER) (test 1 % pqad=538) NEUTROPHILS ABSOLUTE COUNT (BEAKER) (test 2.82 K/ L 1.56-6.13 ypfv=537) LYMPHOCYTES ABSOLUTE COUNT (BEAKER) (test 0.43 K/ L 1.18-3.74 xgyg=660) MONOCYTES ABSOLUTE COUNT (BEAKER) (test 0.60 K/ L 0.24-0.36 ymae=961) EOSINOPHILS ABSOLUTE COUNT (BEAKER) (test 0.17 K/ L 0.04-0.36 jyzq=906) BASOPHILS ABSOLUTE COUNT (BEAKER) (test 0.03 K/ L 0.01-0.08 vxgt=028) IMMATURE GRANULOCYTES-RELATIVE PERCENT (BEAKER) 1 % 0-1 (test cidc=7234) POCT-GLUCOSE [id number] 00:49:00 Test Item Value Reference Range Comments POC-GLUCOSE METER (BEAKER) 95 mg/dL 70-[address] [facility] [address] [facility] (test bkkr=5920) [facility] [address] [id number] 21:49:00 Test Item Value Reference Range Comments POTASSIUM (BEAKER) (test 3.9 meq/L 3.5-5.1 Specimen moderately hemolyzed hyje=107) SODIUM, RANDOM [id number] 19:06:00 Test Item Value Reference Range Comments SODIUM URINE (BEAKER) (test dknu=670) < meq/L Reference Range: No NormalsCREATININE, RANDOM [id number] 19:02:00 Test Item Value Reference Range Comments CREATININE URINE (BEAKER) (test xdgq=003) 160.3 mg/dL Reference Range: No NormalsPROTEIN, RANDOM [id number] 19:02:00 Test Item Value Reference Range Comments PROTEIN, URINE (BEAKER) (test rpgm=4065) 19 mg/dL 0-14 SCREEN, [id number] 18:47:00 Test Item Value Reference Range Comments TEST URINE (BEAKER) (test ynlr=077) Negative POCT-GLUCOSE [id number] 18:08:00 Test Item Value Reference Range Comments POC-GLUCOSE METER (BEAKER) 183 mg/dL 70-110 TESTED AT [address] (test xfnu=4921) [facility] [address] [id number] 13:33:00 Test Item Value Reference Range Comments POTASSIUM (BEAKER) (test umfs=733) 3.2 meq/L 3.5-5.1 CBC (HEMOGRAM ONLY)2018-02-10 13:20:00 Test Item Value Reference Range Comments WHITE BLOOD CELL COUNT 4.6 K/ L 3.5-10.5 (BEAKER) (test halx=931) RED BLOOD CELL COUNT (BEAKER) 2.47 M/ L 3.93-5.22 (test akzd=021) HEMOGLOBIN (BEAKER) (test 7.6 GM/DL 11.2-15.7 xuno=922) HEMATOCRIT (BEAKER) (test 23.0 % 34.1-44.9 ktqw=067) MEAN CORPUSCULAR VOLUME 93.1 fL 79.4-94.8 Discordant from previous (BEAKER) (test evqq=146) results. Clinical correlation suggested. MEAN CORPUSCULAR HEMOGLOBIN 30.8 pg 25.6-32.2 (BEAKER) (test drjh=634) MEAN CORPUSCULAR HEMOGLOBIN 33.0 GM/DL 32.2-35.5 CONC (BEAKER) (test yzpp=897) RED CELL DISTRIBUTION WIDTH 20.5 % 11.7-14.4 (BEAKER) (test qqfg=913) PLATELET COUNT (BEAKER) (test 111 K/CU MM 150-450 kuka=221) MEAN PLATELET VOLUME (BEAKER) 11.2 fL 9.4-12.3 (test szpe=295) NUCLEATED RED BLOOD CELLS 0 /100 WBC 0-0 (BEAKER) (test prqg=728) POCT-GLUCOSE [id number] 11:51:00 Test Item Value Reference Range Comments POC-GLUCOSE METER (BEAKER) 123 mg/dL 70-110 TESTED AT [place] [id number] [facility] (test zqno=1593) [facility] [address] POCT-GLUCOSE [id number] 06:46:00 Test Item Value Reference Range Comments POC-GLUCOSE METER (BEAKER) 237 mg/dL 70-[address] [facility] [address] (test gomh=7283) [facility] [address] CBC (HEMOGRAM ONLY)2018-02-10 06:44:00 Test Item Value Reference Range Comments WHITE BLOOD CELL COUNT (BEAKER) (test xicb=618) 2.8 K/ L 3.5-10.5 RED BLOOD CELL COUNT (BEAKER) (test ehys=808) 2.34 M/ L 3.93-5.22 HEMOGLOBIN (BEAKER) (test fuuq=721) 7.2 GM/DL 11.2-15.7 HEMATOCRIT (BEAKER) (test vkrp=153) 22.8 % 34.1-44.9 MEAN CORPUSCULAR VOLUME (BEAKER) (test cmfv=250) 97.4 fL 79.4-94.8 MEAN CORPUSCULAR HEMOGLOBIN (BEAKER) (test 30.8 pg 25.6-32.2 dogu=133) MEAN CORPUSCULAR HEMOGLOBIN CONC (BEAKER) (test 31.6 GM/DL 32.2-35.5 qdys=250) RED CELL DISTRIBUTION WIDTH (BEAKER) (test 20.3 % 11.7-14.4 uqfp=364) PLATELET COUNT (BEAKER) (test vpxl=878) 102 K/CU MM 150-450 MEAN PLATELET VOLUME (BEAKER) (test cdco=671) 11.3 fL 9.4-12.3 NUCLEATED RED BLOOD CELLS (BEAKER) (test 0 /100 WBC 0-0 qxpk=361) RAPID DRUG SCREEN, [id number] 06:12:00 Test Item Value Reference Range Comments BARBITURATE URINE (BEAKER) (test vcac=511) Negative Negative BENZODIAZEPINE SCREEN URINE (BEAKER) (test Negative Negative dgjk=899) COCAINE (METAB.) SCREEN (BEAKER) (test tcjm=6576) Negative Negative METHADONE SCREEN (BEAKER) (test jpbu=3070) Negative Negative OPIATE SCREEN URINE (BEAKER) (test lsfk=118) Negative Negative CANNABINOID SCREEN URINE (BEAKER) (test kpva=577) Negative Negative AMPH/METHAMPH SCREEN (BEAKER) (test pvog=1954) Negative Negative PHENCYCLIDINE SCREEN URINE (BEAKER) (test pdeg=441) Negative Negative OXYCODONE SCREEN URINE (BEAKER) (test pcuw=3664) Negative Negative DRUG CUTOFF CONC.Cocaine 300 ng/mL Cannabinoid 50 ng/mL Benzodiazepine 200 ng/mLBarbiturate 200 ng/ mLPhencyclidine 25 ng/mLOpiate 300 ng/mLMethadone 300 ng/mLAmphetamine/ 1000 ng/mL MethamphetamineOxycodone 300 ng/mLThis assay provides an unconfirmed qualitative test result for the clinical management of patients in emergency situations. Chain of custody not maintained. Some pylr-yvc-iztmuwy medications, as well as adulterants, may cause inaccurate results. Clinical correlation should be applied. A more comprehensive drug screen or confirmation of a detected drug may be performed upon request.URINALYSIS W/ REFLEX URINE [id number] 04:33:00 Test Item Value Reference Range Comments COLOR (BEAKER) (test odsf=190) Yellow CLARITY (BEAKER) (test qbbx=105) Hazy SPECIFIC GRAVITY UA (BEAKER) (test zrbv=441) 1.013 1.001-1.035 PH UA (BEAKER) (test mvvv=884) 6.0 5.0-8.0 PROTEIN UA (BEAKER) (test jmaz=252) 10 mg/dL Negative GLUCOSE UA (BEAKER) (test efgc=052) Negative Negative KETONES UA (BEAKER) (test odts=579) Trace Negative BILIRUBIN UA (BEAKER) (test jljs=883) Negative Negative BLOOD UA (BEAKER) (test dxok=126) Negative Negative NITRITE UA (BEAKER) (test asla=113) Negative Negative LEUKOCYTE ESTERASE UA (BEAKER) (test lfmw=021) Negative Negative UROBILINOGEN UA (BEAKER) (test qxmg=104) 0.2 mg/dL 0.2-1.0 RBC UA (BEAKER) (test avei=570) < /HPF WBC UA (BEAKER) (test ieyk=851) 2 /HPF BACTERIA (BEAKER) (test psxc=070) Rare MUCUS (BEAKER) (test jpkk=4566) Rare SQUAMOUS EPITHELIAL (BEAKER) (test hkgz=723) 8 /HPF HYALINE CASTS (BEAKER) (test ofut=922) 70 /LPF AMORPHOUS CRYSTALS (BEAKER) (test pudm=8616) Rare SOURCE(BEAKER) (test lqrn=1994) BASIC METABOLIC [id number] 02:35:00 Test Item Value Reference Range Comments SODIUM (BEAKER) (test 137 meq/L 136-145 hnam=748) POTASSIUM (BEAKER) (test 2.9 meq/L 3.5-5.1 nzrf=588) CHLORIDE (BEAKER) (test 109 meq/L 98-107 kqjz=737) CO2 (BEAKER) (test 14 meq/L 22-29 tjer=729) BLOOD UREA NITROGEN 31 mg/dL 7-21 (BEAKER) (test ppdf=350) CREATININE (BEAKER) (test 1.98 mg/dL 0.57-1.25 hvhk=099) GLUCOSE RANDOM (BEAKER) 146 mg/dL 70-105 (test dfup=583) CALCIUM (BEAKER) (test 8.9 mg/dL 8.4-10.2 efkt=878) EGFR (BEAKER) (test 27 mL/min/1.73 sq m ESTIMATED GFR IS NOT icid=2757) ACCURATE CREATININE CLEARANCE IN PREDICTING GLOMERULAR FILTRATION RATE. ESTIMATED GFR IS NOT APPLICABLE FOR DIALYSIS PATIENTS. [id number] 02:35:00 Test Item Value Reference Range Comments MAGNESIUM (BEAKER) (test cydn=500) 2.0 mg/dL 1.6-2.6 HEPATIC FUNCTION [id number] 02:35:00 Test Item Value Reference Range Comments TOTAL PROTEIN (BEAKER) (test cdaf=287) 7.4 gm/dL 6.0-8.3 ALBUMIN (BEAKER) (test mprd=1046) 3.8 g/dL 3.5-5.0 BILIRUBIN TOTAL (BEAKER) (test wqwy=293) 1.8 mg/dL 0.2-1.2 BILIRUBIN DIRECT (BEAKER) (test xptn=389) 0.9 mg/dL 0.1-0.5 ALKALINE PHOSPHATASE (BEAKER) (test hmde=794) 73 U/L 40-150 AST (SGOT) (BEAKER) (test gtee=327) 38 U/L 5-34 ALT (SGPT) (BEAKER) (test ptcy=830) 14 U/L 6-55 BLOOD GAS, [id number] 02:34:00 Test Item Value Reference Range Comments PH VENOUS (BEAKER) (test yxvr=969) 7.42 7.32-7.42 PCO2 VENOUS (BEAKER) (test wyzy=729) 28 mmHg 41-51 PO2 VENOUS (BEAKER) (test gmdg=856) 34 mmHg 25-40 O2 SATURATION VENOUS (BEAKER) (test zxtd=601) 67.6 % 40.0-70.0 HCO3 VENOUS (BEAKER) (test idlg=283) 17 mmol/L 21-29 BASE EXCESS VENOUS (BEAKER) (test kdge=227) -6.2 mmol/L -2.0-3.0 PATIENT TEMPERATURE (BEAKER) (test yemu=3545) 37.0 C [id number] 02:33:00 Test Item Value Reference Range Comments PHOSPHORUS (BEAKER) (test yhlo=396) 3.7 mg/dL 2.3-4.7 [id number] 02:33:00 Test Item Value Reference Range Comments LIPASE (BEAKER) (test zsrc=297) 40 U/L 8-78 CREATINE KINASE (CK), TOTAL AND [id number] 02:30:00 Test Item Value Reference Range Comments CREATINE KINASE TOTAL (BEAKER) (test kdrf=370) 30 U/L 29-200 CREATINE KINASE-MB (BEAKER) (test bxxa=919) 0.4 ng/mL 0.0-6.6 CREATINE KINASE-MB INDEX (BEAKER) (test tyeg=423) 1.3 % CK-MB Reference Range:<6.7 Normal6.7-10.0 Borderline>10.0 AbnormalTROPONIN [id number] 02:30:00 Test Item Value Reference Range Comments TROPONIN I (BEAKER) (test vswo=928) < ng/mL 0.00-0.03 Troponin I (TnI) levels [...] failure, acidosis, acute neurological disease, and persistent tachyarrhythmia.[id number] 02:19:00 Test Item Value Reference Range Comments ETHANOL (BEAKER) (test odky=631) < mg/dL <=10 [id number] 02:17:00 Test Item Value Reference Range Comments PARTIAL THROMBOPLASTIN TIME (BEAKER) (test 32.8 seconds 22.5-36.0 rzzd=068) LACTIC ACID, VENOUS, WHOLE [id number] 02:17:00 Test Item Value Reference Range Comments LACTATE BLOOD VENOUS (2) (BEAKER) (test 1.2 mmol/L 0.5-2.2 ehcj=8575) Effective 12/07/2015: Units/Reference Range ChangeNew: 0.5-2.2 mmol/L Previous: 5 -20 mg/dLPROTHROMBIN [id number] 02:16:00 Test Item Value Reference Range Comments PROTIME (BEAKER) (test posi=748) 17.0 seconds 11.7-14.7 INR (BEAKER) (test jzrb=962) 1.4 <=5.9 RECOMMENDED COUMADIN/WARFARIN INR THERAPY RANGESSTANDARD DOSE: 2.0 - 3.0 Includes: PROPHYLAXIS forvenous thrombosis, systemic embolization; TREATMENT for venous thrombosis and/or pulmonary embolus.HIGH RISK: Target INR is 2.5-3.5 for patients with mechanical heart valves.[id number] 02:16:00 Test Item Value Reference Range Comments AMMONIA (BEAKER) (test huko=130) 75 mol/L 18-72 [id number] 02:16:00 Test Item Value Reference Range Comments FIBRINOGEN LEVEL (BEAKER) (test lkrw=848) 372 mg/dl 225-434 CBC W/PLT COUNT & AUTO [id number] 02:10:00 Test Item Value Reference Range Comments WHITE BLOOD CELL COUNT (BEAKER) (test bkdc=531) 4.0 K/ L 3.5-10.5 RED BLOOD CELL COUNT (BEAKER) (test qfbi=223) 2.78 M/ L 3.93-5.22 HEMOGLOBIN (BEAKER) (test tuth=715) 8.5 GM/DL 11.2-15.7 HEMATOCRIT (BEAKER) (test vsie=725) 25.8 % 34.1-44.9 MEAN CORPUSCULAR VOLUME (BEAKER) (test vzrx=397) 92.8 fL 79.4-94.8 MEAN CORPUSCULAR HEMOGLOBIN (BEAKER) (test 30.6 pg 25.6-32.2 ryat=616) MEAN CORPUSCULAR HEMOGLOBIN CONC (BEAKER) (test 32.9 GM/DL 32.2-35.5 zhuc=450) RED CELL DISTRIBUTION WIDTH (BEAKER) (test 18.7 % 11.7-14.4 rpyl=065) PLATELET COUNT (BEAKER) (test japj=953) 110 K/CU MM 150-450 MEAN PLATELET VOLUME (BEAKER) (test nwzi=382) 11.2 fL 9.4-12.3 NUCLEATED RED BLOOD CELLS (BEAKER) (test 0 /100 WBC 0-0 wdkq=773) NEUTROPHILS RELATIVE PERCENT (BEAKER) (test 92 % erpy=696) LYMPHOCYTES RELATIVE PERCENT (BEAKER) (test 4 % bzca=424) MONOCYTES RELATIVE PERCENT (BEAKER) (test 3 % ckfw=948) EOSINOPHILS RELATIVE PERCENT (BEAKER) (test 1 % hklg=159) BASOPHILS RELATIVE PERCENT (BEAKER) (test 0 % mdru=065) NEUTROPHILS ABSOLUTE COUNT (BEAKER) (test 3.69 K/ L 1.56-6.13 ztpt=433) LYMPHOCYTES ABSOLUTE COUNT (BEAKER) (test 0.14 K/ L 1.18-3.74 qfrr=085) MONOCYTES ABSOLUTE COUNT (BEAKER) (test 0.11 K/ L 0.24-0.36 cgvv=413) EOSINOPHILS ABSOLUTE COUNT (BEAKER) (test 0.03 K/ L 0.04-0.36 adtg=140) BASOPHILS ABSOLUTE COUNT (BEAKER) (test 0.01 K/ L 0.01-0.08 alff=045) IMMATURE GRANULOCYTES-RELATIVE PERCENT (BEAKER) 1 % 0-1 (test kuhl=2800) ANTI-NUCLEAR ANTIBODY (LÓPEZ)2017-11-29 09:50:00 Test Item Value Reference Range Comments ANTI-NUCLEAR ANTIBODY (LÓPEZ) (BEAKER) (test Positive Negative bbrb=441) LÓPEZ TITER AND [id number] 09:50:00 Test Item Value Reference Range Comments LÓPEZ TITER (BEAKER) (test qffv=6029) :40 LÓPEZ PATTERN (BEAKER) (test stog=7051) Speckled [id number] 15:34:00 Test Item Value Reference Range Comments FERRITIN (BEAKER) (test nwrf=797) 237 ng/mL 5-275 HEPATITIS B SURFACE [id number] 14:54:00 Test Item Value Reference Range Comments HEPATITIS B SURFACE ANTIBODY (BEAKER) (test < mIU/mL <8.0 hkgd=769) HEPATITIS B SURFACE [id number] 14:49:00 Test Item Value Reference Range Comments HEPATITIS B SURFACE ANTIGEN (2) (BEAKER) (test Nonreactive Nonreactive tcvk=1062) HEPATITIS C [id number] 14:49:00 Test Item Value Reference Range Comments HEPATITIS C ANTIBODY (BEAKER) (test jraz=873) Nonreactive Nonreactive ALPHA FETOPROTEIN (AFP), TUMOR [id number] 14:48:00 Test Item Value Reference Range Comments ALPHA-FETOPROTEIN (BEAKER) (test qoml=1840) 4.9 ng/mL <10.0 HEPATITIS B CORE ANTIBODY, [id number] 14:48:00 Test Item Value Reference Range Comments HEPATITIS B CORE TOTAL ANTIBODY (BEAKER) (test Nonreactive Nonreactive fftp=301) HEPATITIS A ANTIBODY, [id number] 14:48:00 Test Item Value Reference Range Comments HEPATITIS A IGG ANTIBODY (BEAKER) (test Nonreactive Nonreactive wxkf=8824) CBC W/PLT COUNT & AUTO [id number] 14:30:00 Test Item Value Reference Range Comments WHITE BLOOD CELL COUNT (BEAKER) (test aodz=783) 5.2 K/ L 3.5-10.5 RED BLOOD CELL COUNT (BEAKER) (test kpwm=281) 2.96 M/ L 3.93-5.22 HEMOGLOBIN (BEAKER) (test wkxi=090) 9.7 GM/DL 11.2-15.7 HEMATOCRIT (BEAKER) (test qpmt=027) 31.0 % 34.1-44.9 MEAN CORPUSCULAR VOLUME (BEAKER) (test vnsg=622) 104.7 fL 79.4-94.8 MEAN CORPUSCULAR HEMOGLOBIN (BEAKER) (test 32.8 pg 25.6-32.2 nthl=633) MEAN CORPUSCULAR HEMOGLOBIN CONC (BEAKER) (test 31.3 GM/DL 32.2-35.5 gzyn=618) RED CELL DISTRIBUTION WIDTH (BEAKER) (test 17.8 % 11.7-14.4 hqdv=561) PLATELET COUNT (BEAKER) (test aiyn=980) 92 K/CU MM 150-450 MEAN PLATELET VOLUME (BEAKER) (test cpcv=719) 10.3 fL 9.4-12.3 NUCLEATED RED BLOOD CELLS (BEAKER) (test 0 /100 WBC 0-0 bbbx=179) NEUTROPHILS RELATIVE PERCENT (BEAKER) (test 81 % rksx=707) LYMPHOCYTES RELATIVE PERCENT (BEAKER) (test 6 % itpc=070) MONOCYTES RELATIVE PERCENT (BEAKER) (test 9 % bekl=837) EOSINOPHILS RELATIVE PERCENT (BEAKER) (test 3 % eqmp=822) BASOPHILS RELATIVE PERCENT (BEAKER) (test 1 % rjub=705) NEUTROPHILS ABSOLUTE COUNT (BEAKER) (test 4.23 K/ L 1.56-6.13 jcoj=253) LYMPHOCYTES ABSOLUTE COUNT (BEAKER) (test 0.29 K/ L 1.18-3.74 zscx=007) MONOCYTES ABSOLUTE COUNT (BEAKER) (test xkbo=395) 0.49 K/ L 0.24-0.36 EOSINOPHILS ABSOLUTE COUNT (BEAKER) (test 0.14 K/ L 0.04-0.36 itpx=883) BASOPHILS ABSOLUTE COUNT (BEAKER) (test drbo=257) 0.06 K/ L 0.01-0.08 IMMATURE GRANULOCYTES-RELATIVE PERCENT (BEAKER) 0 % 0-1 (test gmne=1061) COMPREHENSIVE METABOLIC [id number] 14:28:00 Test Item Value Reference Range Comments TOTAL PROTEIN (BEAKER) 7.6 gm/dL 6.0-8.3 (test oahf=525) ALBUMIN (BEAKER) (test 3.6 g/dL 3.5-5.0 zrfz=4093) ALKALINE PHOSPHATASE 144 U/L 40-150 (BEAKER) (test ewbs=172) BILIRUBIN TOTAL (BEAKER) 1.1 mg/dL 0.2-1.2 (test izhh=391) SODIUM (BEAKER) (test 135 meq/L 136-145 djbo=102) POTASSIUM (BEAKER) (test 3.6 meq/L 3.5-5.1 qlgx=988) CHLORIDE (BEAKER) (test 103 meq/L 98-107 wyuh=560) CO2 (BEAKER) (test 22 meq/L 22-29 aaks=243) BLOOD UREA NITROGEN 16 mg/dL 7-21 (BEAKER) (test ducr=468) CREATININE (BEAKER) (test 1.82 mg/dL 0.57-1.25 xudd=015) GLUCOSE RANDOM (BEAKER) 102 mg/dL 70-105 (test tlbl=951) CALCIUM (BEAKER) (test 9.1 mg/dL 8.4-10.2 nngv=661) AST (SGOT) (BEAKER) (test 39 U/L 5-34 kdwz=915) ALT (SGPT) (BEAKER) (test 14 U/L 6-55 eboy=177) EGFR (BEAKER) (test 30 mL/min/1.73 sq m ESTIMATED GFR IS NOT dgwl=3762) ACCURATE CREATININE CLEARANCE IN PREDICTING GLOMERULAR FILTRATION RATE. ESTIMATED GFR IS NOT APPLICABLE FOR DIALYSIS PATIENTS. BILIRUBIN, [id number] 14:28:00 Test Item Value Reference Range Comments BILIRUBIN DIRECT (BEAKER) (test wsgu=145) 0.6 mg/dL 0.1-0.5 IRON, TIBC, % SAT. (WITHOUT FERRITIN)2017-11-27 14:26:00 Test Item Value Reference Range Comments IRON (BEAKER) (test ishe=418) 37 ug/dL 40-160 TOTAL IRON BINDING CAPACITY (BEAKER) (test 219 ug/dL 250-450 nnnc=423) IRON % SATURATION (2) (BEAKER) (test zped=5570) 17 % 20-55 [id number] 14:25:00 Test Item Value Reference Range Comments ALPHA-1 ANTITRYPSIN (BEAKER) (test wcjz=601) 151.80 mg/dL 90.00-200.00 PROTHROMBIN [id number] 14:03:00 Test Item Value Reference Range Comments PROTIME (BEAKER) (test pmop=559) 17.2 seconds 11.7-14.7 INR (BEAKER) (test hahz=649) 1.4 <=5.9 RECOMMENDED COUMADIN/WARFARIN INR THERAPY RANGESSTANDARD DOSE: 2.0 - 3.0 Includes: PROPHYLAXIS forvenous thrombosis, systemic embolization; TREATMENT for venous thrombosis and/or pulmonary embolus.HIGH RISK: Target INR is 2.5-3.5 for patients with mechanical heart valves.
[2018-09-10] MEDS ORDERED: PANTOPRAZOLE 40 MG INJ ONE (14:57)
[2018-09-10] MEDS ORDERED: ONDANSETRON 4 MG/2 ML VIAL ONE (14:57)
[2018-09-10] MEDS ORDERED: NA CHLORIDE 0.9% 1,000 ML ONE (14:58)
[2018-09-10] MEDS: PANTOPRAZOLE INJ 80 MG in NA CHLORIDE 0.9% 250 ML IV SCH (15:00)
[2018-09-10 15:03] LABS: Absolute Lymphocytes (CBC) 0.3 K/uL (0.7-4.9); Absolute Monocytes 0.7 K/uL (0.1-1.3); Absolute Neutrophil 4.7 K/uL (1.8-8.0); Basophils % 0.7 % (0-1.3); Eosinophils % 0.1 % (0-4.4); Hematocrit 16.7 % (36.0-45.0); Lymphocytes % 4.9 % (15.3-44.8); MPV 9.3 fL (7.6-11.3); Monocytes % 12.4 % (3.3-12.3); RBC Red Blood Cell Count 1.71 M/uL (3.86-4.86)
[2018-09-10 15:24] LABS: Albumin 2.2 g/dL (3.4-5.0); Bilirubin Direct 0.5 mg/dL (0-0.2); Bilirubin Total 0.9 mg/dL (0.2-1.0); Potassium 3.5 mmol/L (3.5-5.1); Protein, Total 5.6 g/dL (6.4-8.2)
[2018-09-10 15:39] LABS: Protime INR 1.46
--- NOTE | 2018-09-10 15:55 | ER ---
Nurse's Notes [facility] Name: Amauri Miller Age: 47 yrs Sex: Female : 1970 Arrival Date: 09/10/2018 Time: 14:24 Bed 6 Private MD: Diagnosis: Hematemesis;Upper GI bleed;Anemia;Ascites Presentation: 09/10 14:28 Presenting complaint: EMS states: hx of cirrhosis, pt has had increased abd distention iw over past couple days, was due for paracentesis yesterday, was unable to go, has been vomiting blood for a couple days, small amounts, pt hypotensive at 70's systolic. Transition of care: patient was not received from another setting of care. Onset of symptoms was September 08, 2018. Risk Assessment: Do you want to hurt yourself or someone else? Patient reports no desire to harm self or others. Initial Sepsis Screen: Does the patient meet any 2 criteria? Systolic BP < 90 mmHg. HR > 90 bpm. Does the patient have a suspected source of infection? No. Patient's initial sepsis screen is negative. Care prior to arrival: Medication(s) given: Normal saline infusion, 500 mL, IV initiated. 20 GA, in the left forearm, Med neb given. 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: 17:06 LMP N/A - Irregular menses bp Historical: - Allergies: 14:45 No Known Allergies; iw - Home Meds: 14:45 ferrous sulfate 134 mg (27 mg iron) Oral tab [Active]; folic acid 1 mg Oral tab 1 tab iw once daily [Active]; furosemide 40 mg Oral tab 1 tab once daily [Active]; lactulose 20 gram/30 mL Oral soln 30 mL 3 times per day [Active]; multivitamin with minerals Oral tab [Active]; nadolol 20 mg Oral tab 1 tab once daily [Active]; omeprazole 20 mg Oral cpDR 2 caps 2 times per day [Active]; potassium chloride 20 mEq Oral TbTQ 1 tab once daily [Active]; rifaximin 550 mg tab Oral 1 tab 2 times per day [Active]; sodium bicarbonate 650 mg Oral tab twice a day [Active]; tramadol 50 mg Oral tab 1 tab every 6 hours [Active]; vitamin b1 [Active]; Zofran (as hydrochloride) 4 mg Oral tab 2 tabs for one tab as needed [Active]; Vitamin B-6 Oral [Active]; - PMHx: 14:45 Anemia; Cirrhosis; esophageal varices; Hernia; second one, not repaired; iw - Ebola Screening: : Patient negative for fever greater than or equal to 101.5 degrees Fahrenheit, and additional compatible Ebola Virus Disease symptoms Patient denies exposure to infectious person Patient denies travel to an Ebola-affected area in the 21 days before illness onset No symptoms or risks identified at this time. - Family history:: not pertinent. - Hospitalizations: : No recent hospitalization is reported. Screenin:46 Abuse screen: Denies threats or abuse. Denies injuries from another. Nutritional iw screening: Has had N/V for 3 or more days. Tuberculosis screening: No symptoms or risk factors identified. Fall Risk IV access (20 points). Assessment: 14:30 General: Appears distressed, uncomfortable, Behavior is cooperative, appropriate for bp age, drowsy. Pain: Complains of pain in abdomen diffusely. Neuro: Level of Consciousness is awake, obeys commands, lethargic, Oriented to person, place, time, situation, Appropriate for age. Cardiovascular: Rhythm is sinus tachycardia. Respiratory: Airway is patent Respiratory effort is even, unlabored, Respiratory pattern is regular, symmetrical. GI: Abdomen is distended, noted to have ascites, Bowel sounds diminished in abdomen diffusely Hepatomegaly noted. : No signs and/or symptoms were reported regarding the genitourinary system. EENT: No deficits noted. Derm: No deficits noted. Musculoskeletal: Circulation, motion, and sensation intact. Range of motion: intact in all extremities. 16:10 Reassessment: ADMIT MD AT B/S. PT TO ADMIT TO ENDOSCOPY. bp 17:07 Reassessment: PT PADILLA WITH ENDOSCOPY PERSONNEL. bp Vital Signs: 14:45 BP 79 / 55; Pulse 128; Resp 22 S; Temp 98.2(TE); Pulse Ox 100% on R/A; iw 15:16 BP 90 / 46; Pulse 118; Resp 18; Pulse Ox 100% on R/A; aj 16:07 BP 99 / 67; Pulse 115; Resp 14; Pulse Ox 100% ; bp 17:06 BP 94 / 51; Pulse 121; Resp 20; Pulse Ox 100% ; bp ED Course: 14:24 Patient arrived in ED. rn 14:24 Tank Lee MD is Attending Physician. rn 14:35 Abraham Hirsch, KIMBERLY is Primary Nurse. bp 14:35 First set of blood cultures drawn by me. jb1 14:40 EKG done, by surgical scrub technician. reviewed by Tank Lee MD. at1 14:43 Triage completed. iw 14:46 Maintain EMS IV. Dressing intact. Good blood return noted. Site clean \T\ dry. Gauge \T\ iw site: 20 LFA. 14:46 Arm band placed on right wrist. iw 14:50 Inserted saline lock: 22 gauge in left forearm, using aseptic technique. Blood jb1 collected. 14:50 Initial lab(s) drawn, by me, sent to lab. jb1 14:50 Second set of blood cultures drawn by me. jb1 15:54 Charanjit Washington DO is Hospitalizing Provider. rn 16:04 Inserted saline lock: 22 gauge in right forearm, using aseptic technique. jb1 16:04 T\T\S collected, blood band applied to patient. jb1 17:08 No provider procedures requiring assistance completed. Patient admitted, IV remains in bp place. Administered Medications: 14:45 Drug: NS 0.9% 1000 ml Route: IV; Rate: 1000 ml; Site: left forearm; bp 17:09 Follow up: IV Status: Completed infusion; IV Intake: 1000ml bp 14:45 Drug: ProTONIX 40 mg Route: IVP; Site: left forearm; bp 17:10 Follow up: Response: No adverse reaction bp 14:45 Drug: Zofran 4 mg Route: IVP; Site: left forearm; bp 15:39 Follow up: Response: No adverse reaction bp 15:04 Drug: ProTONIX 8 mg/hr Route: IV; Rate: 25 ml/hr; Site: left forearm; bp 17:09 Follow up: IV Status: Infusion continued upon admission bp 16:00 Drug: Octreotide 50 mcg Route: IV; Rate: calculated rate; Site: right forearm; bp 16:32 Follow up: IV Status: Completed infusion bp 16:00 Drug: Rocephin - (cefTRIAXone) 1 grams Route: IVPB; Infused Over: 30 mins; Site: right bp forearm; 16:32 Follow up: IV Status: Completed infusion; IV Intake: 50ml bp 16:06 Drug: NS 0.9% 1000 ml Route: IV; Rate: 1000 ml; Site: left forearm; bp 17:08 Follow up: IV Status: Completed infusion; IV Intake: 1000ml bp 16:31 Drug: Octreotide Infusion (50 mcg/hr) - (Octreotide 500 mcg, NS 0.9% 500 ml) Route: IV; bp Rate: 50 ml/hr; Site: right forearm; 17:08 Follow up: IV Status: Completed infusion; IV Intake: 1000ml bp Intake: 16:32 IV: 50ml; Total: 50ml. bp 17:08 IV: 1000ml; Total: 1050ml. bp 17:08 IV: 1000ml; Total: 2050ml. bp 17:09 IV: 1000ml; Total: 3050ml. bp Outcome: 15:55 Decision to Hospitalize by Provider. rn 17:10 Patient left the ED. bp Signatures: Tim Granado jb1 Radha Rueda, RN Jennifer Reeves RN RN iw Tank Lee MD MD rn Radha Burns, inpatient nursing aide EKG Tat1 Abraham Hirsch RN RN bp
--- NOTE | 2018-09-10 15:56 | EDPHYS ---
Physician Documentation [facility] Name: Amauri Miller Age: 47 yrs Sex: Female : 1970 Arrival Date: 09/10/2018 Time: 14:24 Bed 6 Private MD: ED Physician Tank Lee HPI: 09/10 15:00 This 47 yrs old Female presents to ER via EMS with complaints of GI Bleeding, rn Abdominal Distention. 15:00 The patient presents to the emergency department vomiting blood. Onset: The rn symptoms/episode began/occurred 2 day(s) ago. Abdominal pain: described as achy, located in the abdomen diffusely. Modifying factors: The symptoms are alleviated by nothing, the symptoms are aggravated by nothing. Severity of symptoms: At their worst the symptoms were moderate in the emergency department the symptoms are unchanged. The patient has experienced similar episodes in the past. Reports abd distension, had scheduled paracentesis yesterday, couldn't make it due to unknown reason, reports needs fluid removed, also reports vomiting bright red blood for 2-3 days.. 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 LMP N/A - Irregular menses bp Historical: - Allergies: 14:45 No Known Allergies; iw - Home Meds: 14:45 ferrous sulfate 134 mg (27 mg iron) Oral tab [Active]; folic acid 1 mg Oral tab 1 tab iw once daily [Active]; furosemide 40 mg Oral tab 1 tab once daily [Active]; lactulose 20 gram/30 mL Oral soln 30 mL 3 times per day [Active]; multivitamin with minerals Oral tab [Active]; nadolol 20 mg Oral tab 1 tab once daily [Active]; omeprazole 20 mg Oral cpDR 2 caps 2 times per day [Active]; potassium chloride 20 mEq Oral TbTQ 1 tab once daily [Active]; rifaximin 550 mg tab Oral 1 tab 2 times per day [Active]; sodium bicarbonate 650 mg Oral tab twice a day [Active]; tramadol 50 mg Oral tab 1 tab every 6 hours [Active]; vitamin b1 [Active]; Zofran (as hydrochloride) 4 mg Oral tab 2 tabs for one tab as needed [Active]; Vitamin B-6 Oral [Active]; - PMHx: 14:45 Anemia; Cirrhosis; esophageal varices; Hernia; second one, not repaired; iw - Ebola Screening: : Patient negative for fever greater than or equal to 101.5 degrees Fahrenheit, and additional compatible Ebola Virus Disease symptoms Patient denies exposure to infectious person Patient denies travel to an Ebola-affected area in the 21 days before illness onset No symptoms or risks identified at this time. - Family history:: not pertinent. - Hospitalizations: : No recent hospitalization is reported. ROS: 15:00 Constitutional: Negative for fever, chills, and weight loss, Eyes: Negative for injury, rn pain, redness, and discharge, Cardiovascular: Negative for chest pain, palpitations, and edema, Respiratory: Negative for shortness of breath, cough, wheezing, and pleuritic chest pain, Abdomen/GI: + abdominal distension and pain MS/Extremity: Negative for injury and deformity, Skin: Negative for injury, rash, and discoloration, Neuro: Negative for headache, numbness, tingling, and seizure. Exam: 15:00 Constitutional: cachectic female, + protruberant abdomen Head/Face: Normocephalic, rn atraumatic. Cardiovascular: tachycardic, regular, no murmur Respiratory: Lungs have equal breath sounds bilaterally, clear to auscultation , mild tachypnea, clear bilaterally Abdomen/GI: + distended abdomen, no peritoneal signs, + fluid wave MS/ Extremity: Pulses equal, no cyanosis. Neurovascular intact. Full, normal range of motion. Equal circumference. Neuro: Awake and alert, GCS 15, oriented to person, place, time, and situation. Cranial nerves II-XII grossly intact. Motor strength 5/5 in all extremities. Sensory grossly intact. Cerebellar exam normal. Vital Signs: 14:45 BP 79 / 55; Pulse 128; Resp 22 S; Temp 98.2(TE); Pulse Ox 100% on R/A; iw 15:16 BP 90 / 46; Pulse 118; Resp 18; Pulse Ox 100% on R/A; aj 16:07 BP 99 / 67; Pulse 115; Resp 14; Pulse Ox 100% ; bp 17:06 BP 94 / 51; Pulse 121; Resp 20; Pulse Ox 100% ; bp MDM: 14:24 Patient medically screened. rn 15:40 ED course: Called Dr. Solis, sustainability consultanthome planning consultant salesperson took down information and states will rn notify him immediately, told her about clinical status, hypotension, and hematemesis, will admit to Dr. Washington in ICU. . 15:46 Differential diagnosis: gastritis, hemorrhagic shock, varices. Data reviewed: vital rn signs, nurses notes, lab test result(s), and as a result, I will admit patient. ED course: Spoke with Dr. Solis, asked me to call Dr. Leigh, who directed me back to Dr. Solis, contacted Will again and states will see patient. . 15:49 Counseling: I had a detailed discussion with the patient and/or guardian regarding: the rn historical points, exam findings, and any diagnostic results supporting the discharge/admit diagnosis, lab results, the need for further work-up and treatment in the hospital. Response to treatment: the patient's symptoms have mildly improved after treatment, and as a result, I will admit patient. ED course: Pt admitted to Dr. Washington, Dr. Solis aware of clinical status, blood ordered. NO longer vomiting. BP still low but stable. Low threshold for central line with pressor if does not improve. . 15:53 ED course: SPoke again with Dr. Solis, he plans on doing Endoscopy and is calling rn out Endo team. . 09/10 14:25 Order name: CBC with Diff; Complete Time: 15:30 rn 09/10 14:25 Order name: Basic Metabolic Panel; Complete Time: 15:30 rn 09/10 14:25 Order name: Protime (+inr) rn 09/10 14:25 Order name: Ptt, Activated rn 09/10 14:25 Order name: Urine Culture rn 09/10 14:25 Order name: Urine Microscopic Only rn 09/10 14:25 Order name: Procalcitonin; Complete Time: 15:59 rn 09/10 14:25 Order name: Lactate; Complete Time: 15:59 rn 09/10 14:25 Order name: Blood Culture Adult (2) rn 09/10 14:25 Order name: LFT's; Complete Time: 15:30 rn 09/10 14:36 Order name: AMMONIA; Complete Time: 15:30 bp 09/10 15:20 Order name: TS bd 09/10 15:22 Order name: Bb Add On bd 09/10 16:21 Order name: Packed RBC Leukored -1 EDMS 09/10 14:25 Order name: IV Start; Complete Time: 14:44 rn 09/10 15:31 Order name: EKG Electrocardiogram EDMS 09/10 15:41 Order name: Labs - recollect needed bd Administered Medications: 14:45 Drug: NS 0.9% 1000 ml Route: IV; Rate: 1000 ml; Site: left forearm; bp 17:09 Follow up: IV Status: Completed infusion; IV Intake: 1000ml bp 14:45 Drug: ProTONIX 40 mg Route: IVP; Site: left forearm; bp 17:10 Follow up: Response: No adverse reaction bp 14:45 Drug: Zofran 4 mg Route: IVP; Site: left forearm; bp 15:39 Follow up: Response: No adverse reaction bp 15:04 Drug: ProTONIX 8 mg/hr Route: IV; Rate: 25 ml/hr; Site: left forearm; bp 17:09 Follow up: IV Status: Infusion continued upon admission bp 16:00 Drug: Octreotide 50 mcg Route: IV; Rate: calculated rate; Site: right forearm; bp 16:32 Follow up: IV Status: Completed infusion bp 16:00 Drug: Rocephin - (cefTRIAXone) 1 grams Route: IVPB; Infused Over: 30 mins; Site: right bp forearm; 16:32 Follow up: IV Status: Completed infusion; IV Intake: 50ml bp 16:06 Drug: NS 0.9% 1000 ml Route: IV; Rate: 1000 ml; Site: left forearm; bp 17:08 Follow up: IV Status: Completed infusion; IV Intake: 1000ml bp 16:31 Drug: Octreotide Infusion (50 mcg/hr) - (Octreotide 500 mcg, NS 0.9% 500 ml) Route: IV; bp Rate: 50 ml/hr; Site: right forearm; 17:08 Follow up: IV Status: Completed infusion; IV Intake: 1000ml bp Disposition: 09/10/18 15:55 Hospitalization ordered by Charanjit Washington for Inpatient Admission. Preliminary diagnosis are Hematemesis, Upper GI bleed, Anemia, Ascites. - Bed requested for DAY SURGERY OTHER. - Status is Inpatient Admission. bp - Condition is Serious. - Problem is new. - Symptoms have improved. UTI on Admission? No Critical care time excluding procedures: 15:54 Critical care time: Bedside Care: 25 minutes, Consultation: 10 minutes. Total time: 35 rn minutes Signatures: Dispatcher [employer] EDMS Dirrim, Kavya Jennifer Blancas RN RN iw Nieto, Roman, MD MD rn Peltier, Brian, RN RN bp Corrections: (The following items were deleted from the chart) 16:44 15:55 Hospitalization Ordered by Charanjit Felix for Inpatient Admission. Preliminary bd diagnosis is Hematemesis; Upper GI bleed; Anemia; Ascites. Bed requested for Intensive Care Unit. Status is Inpatient Admission. Condition is Serious. Problem is new. Symptoms have improved. UTI on Admission? No. rn 16:45 16:44 09/10/2018 15:55 Hospitalization Ordered by Charanjit Felix for Inpatient bd Admission. Preliminary diagnosis is Hematemesis; Upper GI bleed; Anemia; Ascites. Bed requested for Intensive Care Unit. Status is Inpatient Admission. Condition is Serious. Problem is new. Symptoms have improved. UTI on Admission? No. bd 16:46 16:45 09/10/2018 15:55 Hospitalization Ordered by [facility] for Inpatient bd Admission. Preliminary diagnosis is Hematemesis; Upper GI bleed; Anemia; Ascites. Bed requested for DAY SURGERY OTHER. Status is Inpatient Admission. Condition is Serious. Problem is new. Symptoms have improved. UTI on Admission? No. bd 17:10 16:46 09/10/2018 15:55 Hospitalization Ordered by Charanjit Felix for Inpatient bp Admission. Preliminary diagnosis is Hematemesis; Upper GI bleed; Anemia; Ascites. Bed requested for DAY SURGERY OTHER. Status is Inpatient Admission. Condition is Serious. Problem is new. Symptoms have improved. UTI on Admission? No. bd
[2018-09-10] MEDS ORDERED: CEFTRIAXONE/SWI 1gm 1 GM/10 ML SYR ONE (16:31)
[2018-09-10] MEDS ORDERED: OCTREOTIDE ACETATE 100 MCG/ML ONE (16:31)
--- NOTE | 2018-09-10 16:41 | P.HP ---
Certification for Inpatient Patient admitted to: Inpatient With expected LOS: >2 Midnights Patient will require the following post-hospital care: None Practitioner: I am a practitioner with admitting privileges, knowledge of patient current condition, hospital course, and medical plan of care. Services: Services provided to patient in accordance with Admission requirements found in Title 42 Section 412.3 of the Code of Federal Regulations Patient History Date of Service: 09/10/18 Primary Care Provider: None; GI-Dr. Kebede([place]) Reason for admission: Hematemesis History of Present Illness: 47-year-old female with history of alcoholic cirrhosis, chronic renal disease, alcohol abuse. Patient recently moved back to the area from . Over the last several days patient has reported some hematemesis. She reports this as mild but getting worse. She is not able to keep anything down just ice. She has some abdominal pain related to severe ascites. She reports getting paracentesis done every other week. Patient admits still drinking wine. Patient denies any melena or rectal bleeding. Patient is had history of GI bleed in the past. In the ER patient was hypotensive. Hemoglobin was found to be at 5.5. White count 5.7. Previous hemoglobin around 8.5. Creatinine 1.2 and GFR-48. Lactic acid elevated. Pro calcitonin unremarkable. Blood pressure around 77 systolic. Patient was given IV fluid bolus, Rocephin, octreotide and Protonix. Improvement in BP around 99 systolic. ER discussed case with GI. GI plans for EGD. Blood has been ordered. I was asked to admit the patient to ICU. When I saw the patient ER, she appeared stable. She was without any significant pain. She did not appear septic. Patient admits drinking wine regularly still. She also smokes. Unclear patient has been compliant with follow up with GI. Allergies No Known Allergies Allergy (Verified 04/06/18 22:12) Home medications list reviewed: Yes Home Medications: Diphenhydramine [Benadryl*] 2 tab PO BEDTIME PRN 04/06/18 Folic Acid 1 mg PO DAILY 04/06/18 Lactulose [Cephulac*] 20 gm PO TID 04/06/18 Multivitamin [Multivitamins] 1 each PO DAILY 04/06/18 Mupirocin Oint [Bactroban 2% Ointment*] 1 appl TOP DAILY 04/06/18 Ondansetron HCl [Zofran] 4 mg PO SEECOM PRN 04/06/18 Potassium Chloride [Klor-Con] 20 meq PO DAILY 04/06/18 Rifaximin [Xifaxan] 550 mg PO BID 04/06/18 Thiamine HCl [Vitamin B-1*] 100 mg PO DAILY 04/06/18 Tramadol HCl [Ultram] 50 mg PO Q6H PRN 04/06/18 Bumetanide [Bumex*] 1 mg PO DAILY #30 tab 04/07/18 Midodrine HCl [Proamatine*] 5 mg PO BID #60 tab 04/28/18 Pantoprazole [Protonix Tab*] 40 mg PO BIDAC #60 tab 04/28/18 - Past Medical/Surgical History Diabetic: No -: Advanced alcohol liver cirrhosis -: Anemia of chronic disease -: History of esophageal varices -: Alcohol abuse -: Tobacco abuse -: Multiple paracentesis -: Hernia repair -: Esophageal banding with multiple EGD Psychosocial/ Personal History: Patient is single. She has 3 children. She does not work. - Family History Father -: Liver disease Notes: patient adopted, does not any history of her parents - Social History Smoking Status: Heavy Tobacco smoker (>10 cigarettes/day) Counseled patient to stop smoking for: less than 10 minutes Smoking therapy provided: Yes Patient receptive to therapy: No Alcohol use: Yes CD- Drugs: No Caffeine use: Yes Place of Residence: Home Review of Systems General: Weakness, As per HPI Eyes: Unremarkable ENT: As per HPI, Unremarkable Respiratory: Shortness of Breath Cardiovascular: Unremarkable Gastrointestinal: Nausea, Vomiting, Abdominal Pain, As per HPI Genitourinary: Unremarkable Musculoskeletal: Unremarkable Integumentary: As per HPI Neurological: Unremarkable Lymphatics: Unremarkable Physical Examination - Physical Exam General: Alert, In no apparent distress, Oriented x3, Cooperative HEENT: Atraumatic, Normocephalic, Mucous membr. moist/pink, Scleral icterus Neck: Supple, No Thyromegaly Respiratory: Clear to auscultation bilaterally, Normal air movement Cardiovascular: Normal pulses, Regular rate/rhythm Gastrointestinal: Normal bowel sounds, Soft and benign, Distended, Ascites ( Severe ascites with abdominal striae ), Tenderness (Mild pain with palpation) Musculoskeletal: No erythema, No tenderness, No warmth Integumentary: No erythema, No warmth, No cyanosis Neurological: Normal speech, Normal strength at 5/5 x4 extr, Normal tone, Normal affect - Studies Laboratory Data (last 24 hrs) 09/10/18 14:45: PT 17.3 H, INR 1.46, APTT 30.9 09/10/18 14:45: Sodium 137, Potassium 3.5, BUN 36 H, Creatinine 1.20, Glucose 100, Total Bilirubin 0.9, AST 232 H, ALT 73, Alkaline Phosphatase 113 09/10/18 14:45: WBC 5.7, Hgb 5.5 L*, Hct 16.7 L*, Plt Count 173 Assessment and Plan - Plan Impression: Hematemesis and hypotension secondary to acute on chronic anemia with upper GI bleed complicated with history of alcoholic cirrhosis and history of esophageal varices Advanced ascites with history of multiple recurrent paracentesis Acute on chronic renal failure, stage II with hypovolemia Alcohol abuse Tobacco abuse Plan: Hematemesis and hypotension secondary to acute on chronic anemia with upper GI bleed complicated with history of alcoholic cirrhosis and history of esophageal varices: Patient will be admitted to ICU. Case discussed with ER physician and GI. GI plans for EGD soon. Blood pressure improved with bolus of fluid. Patient has received Rocephin, octreotide and Protonix. Patient to receive 2 units of packed red blood cells. Anticipate once transfusion is started then GI will proceed with EGD. Patient will continue with octreotide and Protonix drips. Will need to monitor hemoglobin closely. Await findings from EGD. Await further recommendations from GI. Once the patient is stable will need to continue with Xifaxan and lactulose. Will monitor for hepatic encephalopathy. Blood cultures obtained. Urine drug screen obtained. Advanced ascites with history of multiple recurrent paracentesis: Will require abdominal paracentesis likely in the next day due to severe advanced ascites. GI recommends that the patient have a TIPS procedure in the near future as she has had recurrent paracentesis. Acute on chronic renal failure, stage II with hypovolemia: Nephrology consulted. Will monitor closely. Patient will continue with IV fluids. Will continue with diuretic therapy to prevent overload. Alcohol abuse: Admits alcohol abuse. She continues to drink on a regular basis. Patient does not appear willing to quit. Education address concerning the need for cessation especially in light of her liver cirrhosis and GI bleed. Will continue to discuss this in detail. Tobacco abuse: Will address lifestyle modification education. May need nicotine patch. Discharge Plan: Home Plan to discharge in: Greater than 2 days - Advance Directives Does patient have a Living Will: No Does patient have a Durable POA for Healthcare: Yes - Code Status/Comfort Care Code Status Assessed: Yes (Patient full code.) Time Spent Managing Pts Care (In Minutes): 55
[2018-09-10] MEDS: OCTREOTIDE 500 MCG in NA CHLORIDE 0.9% 500 ML IV SCH ×2 (17:00→21:57)
--- NOTE | 2018-09-10 17:12 | EKG ---
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
[2018-09-10] MEDS ORDERED: PROPOFOL 200 MG/20 ML VIAL IV ONE (17:14)
[2018-09-10] MEDS ORDERED: LIDOCAINE 1% MPF 2 ML AMPULE ONE (17:14)
[2018-09-10] MEDS ORDERED: Ringers Lactate 1,000 ML IV ONE (17:24)
[2018-09-10] MEDS ORDERED: NA CHLORIDE 0.9% 500 ML ONE (17:25)
[2018-09-10] MEDS ORDERED: ALBUMIN HUM 5% 250 ML IV ONE (17:27)
[2018-09-10] MEDS ORDERED: MIDAZOLAM HCL 2 MG/2 ML INJ ONE (17:31)
[2018-09-10] MEDS ORDERED: ACETAMINOPHEN 650MG/RECT SUPP PR PRN (17:45)
[2018-09-10] MEDS ORDERED: NA CHLORIDE 0.9% 1,000 ML IV SCH (17:45)
[2018-09-10] MEDS ORDERED: NA CHLORIDE 0.9% 100 ML ONE (18:36)
[2018-09-10] MEDS ORDERED: FUROSEMIDE 20 MG/ 2ML VIAL IV SCH (19:00)
[2018-09-10] MEDS: ONDANSETRON 4 MG/2 ML VIAL IV PRN (19:15)
[2018-09-10 19:25] LABS: Thyroid Stimulating Hormone 0.971 uIU/mL (0.360-3.740)
[2018-09-10 19:57] LABS: Barbiturates NEGATIVE (NEGATIVE); Benzodiazepines POSITIVE (NEGATIVE); Cocaine NEGATIVE (NEGATIVE); METHAMPHETAM NEGATIVE (NEGATIVE); Methadone NEGATIVE (NEGATIVE); Opiates NEGATIVE (NEGATIVE); Phencyclidine NEGATIVE (NEGATIVE); THC Cannibis NEGATIVE (NEGATIVE)
[2018-09-10] MEDS: FUROSEMIDE 20 MG/ 2ML VIAL IV PRN (21:57)
[2018-09-10] MEDS ORDERED: NA CHLORIDE 0.9% 250 ML IV SCH (22:00)
[2018-09-10] MEDS ORDERED: MORPHINE 2 MG/ML SYR IV ONE (23:24)
[2018-09-11] MEDS ORDERED: MORPHINE 2 MG/ML SYR ONE (00:22)
[2018-09-11] MEDS: PANTOPRAZOLE INJ 80 MG in NA CHLORIDE 0.9% 250 ML IV SCH ×3 (00:56→20:53)
[2018-09-11] MEDS: FUROSEMIDE 20 MG/ 2ML VIAL IV PRN ×2 (02:00→10:14)
[2018-09-11 02:30] LABS: Hematocrit 20.6 % (36.0-45.0)
[2018-09-11 05:18] LABS: Absolute Lymphocytes (CBC) 0.3 K/uL (0.7-4.9); Absolute Monocytes 0.9 K/uL (0.1-1.3); Absolute Neutrophil 5.5 K/uL (1.8-8.0); Lymphocytes % 4.6 % (15.3-44.8); MPV 9.4 fL (7.6-11.3); Monocytes % 13.5 % (3.3-12.3); RBC Red Blood Cell Count 2.18 M/uL (3.86-4.86)
[2018-09-11 05:19] LABS: Hematocrit 20.4 % (36.0-45.0)
[2018-09-11 05:44] LABS: Albumin 2.5 g/dL (3.4-5.0); Bilirubin Total 2.1 mg/dL (0.2-1.0); Magnesium 1.7 mg/dL (1.8-2.4); Potassium 3.8 mmol/L (3.5-5.1); Protein, Total 5.6 g/dL (6.4-8.2)
[2018-09-11] MEDS ORDERED: MAGNESIUM SULFATE 1 gm IVPB 1 GM/100 ML BAG IV ONE (06:06)
[2018-09-11] MEDS ORDERED: KCL 20 MEQ/100 mL IVPB 20 MEQ/100 ML BAG IV SCH (07:00)
[2018-09-11] MEDS: MORPHINE 2 MG/ML SYR IV PRN (08:17)
[2018-09-11] MEDS: CEFTRIAXONE/SWI 1gm 1 GM/10 ML SYR IVP SCH (08:18)
[2018-09-11] MEDS: SPIRONOLACTONE 100 MG TAB PO SCH (09:00)
[2018-09-11] MEDS: MIDODRINE HCL 5 MG TABLET PO SCH ×3 (09:00→20:55)
--- NOTE | 2018-09-11 09:49 | ECHO ---
HEIGHT: 5 ft 6 in WEIGHT: 171 lb 0 oz DATE OF STUDY: 09/11/[address]: Charanjit Washington DO 2-DIMENSIONAL: YES M.MODE: YES DOPPLER: YES COLOR FLOW: YES TDS: PORTABLE: DEFINITY: BUBBLE STUDY: DIAGNOSIS: ALCOHOL CIRRHOSIS, SEVERE ASCITES, GI BLEED CARDIAC HISTORY: CATHERIZATION: SURGERY: PROSTHETIC VALVE: PACEMAKER: MEASUREMENTS (cm) DIASTOLIC (NORMALS) SYSTOLIC (NORMALS) IVSd 1.1 (0.6-1.2) LA Diam 3.4 (1.9-4.0) LVEF 68% LVIDd 3.8 (3.5-5.7) LVIDs 2.4 (2.0-3.5) %FS 37% LVPWd 1.1 (0.6-1.2) Ao Diam 2.9 (2.0-3.7) 2 DIMENSIONAL ASSESSMENT: RIGHT ATRIUM: NORMAL LEFT ATRIUM: NORMAL RIGHT VENTRICLE: NORMAL LEFT VENTRICLE: NORMAL TRICUSPID VALVE: NORMAL MITRAL VALVE: NORMAL PULMONIC VALVE: NORMAL AORTIC VALVE: NORMAL PERICARDIAL EFFUSION: NONE AORTIC ROOT: NORMAL LEFT VENTRICULAR WALL MOTION: NORMAL DOPPLER/COLOR FLOW: MILD TO MODERATE MITRAL REGURGITATION. COMMENTS: NORMAL 2-DIMENSIONAL ECHOCARDIOGRAM. MILD TO MODERATE MITRAL REGURGITATION. ASCITES INCIDENTALLY NOTED. TECHNOLOGIST: OLGA LERNER
[2018-09-11] MEDS: OCTREOTIDE 500 MCG in NA CHLORIDE 0.9% 500 ML IV SCH ×2 (10:02→20:53)
[2018-09-11] MEDS: ALBUMIN HUMAN 25% 100 ML IV SCH ×2 (11:00→17:00)
--- NOTE | 2018-09-11 11:24 | P.PN ---
Subjective Date of Service: 09/11/18 Primary Care Provider: None; GI-Dr. Kebede([place]) Chief Complaint: Hematemesis Subjective: Improving Physical Examination - Vital Signs Temperature: 98.1 F Blood Pressure: 144/71 Pulse: 102 Respirations: 15 Pulse Ox (%): 97 - Physical Exam General: Alert, In no apparent distress, Oriented x3, Cooperative HEENT: Atraumatic Neck: Supple Respiratory: Clear to auscultation bilaterally, Normal air movement Cardiovascular: Normal pulses, Regular rate/rhythm Gastrointestinal: Normal bowel sounds, Ascites (Large amount of ascites noted), Tenderness (Tenderness due to ascites) Neurological: Normal speech, Normal strength at 5/5 x4 extr, Normal tone, Normal affect - Studies Laboratory Data (last 24 hrs) 09/10/18 14:45: PT 17.3 H, INR 1.46, APTT 30.9 09/10/18 14:45: Sodium 137, Potassium 3.5, BUN 36 H, Creatinine 1.20, Glucose 100, Total Bilirubin 0.9, AST 232 H, ALT 73, Alkaline Phosphatase 113 09/10/18 14:45: WBC 5.7, Hgb 5.5 L*, Hct 16.7 L*, Plt Count 173 Medications List Reviewed: Yes Assessment & Plan Discharge Plan: Home Plan to discharge in: 72 Hours Physician Review Additional Text: Impression: Hematemesis and hypotension secondary to acute on chronic anemia with upper GI bleed complicated with history of alcoholic cirrhosis and history of esophageal varices Advanced ascites with history of multiple recurrent paracentesis Acute on chronic renal failure, stage II with hypovolemia Alcohol abuse Tobacco abuse Plan: Hematemesis and hypotension secondary to acute on chronic anemia with upper GI bleed complicated with history of alcoholic cirrhosis and history of esophageal varices: Patient remains in ICU. Patient has received 2 units of blood. She will receive another unit. Will try to maintain hemoglobin above 8.0. Case discussed with GI. Patient had a lot of scarring from her previous esophageal varices. Banding was done. No active bleeding identified. Continue with Protonix, Rocephin and octreotide. Will start clear liquid diet. Nephrology on board. We will hold Lasix and Aldactone and provide albumin as the patient will get the paracentesis today. Will continue to monitor closely. Will provide lactulose and Xifaxan. Will review and restart home medications. Will continue to address compliance with medication and alcohol cessation. Advanced ascites with history of multiple recurrent paracentesis: Will get abdominal paracentesis to remove some fluid from the advanced ascites. GI recommends that the patient have a TIPS procedure in the near future as she has had recurrent paracentesis. Acute on chronic renal failure, stage II with hypovolemia: Nephrology consulted. Diuretics on hold as per Nephrology. Will monitor closely. Alcohol abuse: Admits alcohol abuse. She continues to drink on a regular basis. Patient does not appear willing to quit. Will continue to address alcohol cessation especially in light of her alcoholic cirrhosis. Tobacco abuse: Will address lifestyle modification education. May need nicotine patch. Time Spent Managing Pts Care (In Minutes): 55
[2018-09-11] MEDS ORDERED: ALBUMIN HUMAN 25% 100 ML IV ONE (12:20)
--- NOTE | 2018-09-11 12:20 | RAD REPORT ---
EXAM DESCRIPTION: US - Paracentesis Proc Guidance - 09/11/2018 11:25 am CLINICAL HISTORY: Ascites COMPARISON: Multiple prior paracentesis procedures TECHNIQUE: The patient presents for ultrasound-guided paracentesis. The procedure, risks and altern atives were discussed with the patient in detail. Oral and written consent were obtained. Time out p rocedure was performed. The patient had no contraindicated allergy or medication history. PT, INR va lues within acceptable limits. Preliminary sonographic evaluation identified right lower quadrant access site. The skin and deeper tissues were anesthetized with 1 percent lidocaine. Under direct sonographic visualization, a parace ntesis catheter was advanced into the peritoneal cavity. Large volume drainage was initiated. Approx imately 12 liters of ascites removed. At the conclusion of the procedure, catheter was withdrawn and a bandage placed at the puncture site. The patient was transferred back to the intensive care unit for post paracentesis care and ongoing c are. The patient also pending albumin infusion per consulting systems software designer orders. IMPRESSION: Ultrasound-guided paracentesis as detailed.
--- NOTE | 2018-09-11 12:21 | RAD REPORT ---
EXAM DESCRIPTION: US - Renal Ultrasound-Complete - 09/11/2018 11:25 am CLINICAL HISTORY: Ascites, renal insufficiency COMPARISON: None. FINDINGS: The right kidney measures 10.6 x 5.2 x 5.0 cm. The left kidney measures 10.7 x 6.1 x 4.4 cm. Cortical thickness is normal. There is increase in cortical echogenicity that is nonspecific but can indicate underlying medical renal disease. No mass identified in either kidney. There is fullness of the left renal pelvis without clear hydronephrosis. Bladder was not well visualized. IMPRESSION: 1. Fullness of the left renal pelvis without hydronephrosis. 2. No hydronephrosis of the right kidney. No mass of either kidney. 3. Mild underlying medical renal disease is evident.
[2018-09-11] MEDS ORDERED: POTASSIUM CL SA 10 MEQ TAB PO ONE (12:37)
[2018-09-11] MEDS: LACTULOSE 20 GM/30 ML UCUP PO SCH (12:46)
[2018-09-11] MEDS: XIFAXAN 550 MG PO SCH ×2 (12:46→20:54)
[2018-09-11] MEDS: FOLIC ACID 1 MG, MULTIVITAMINS INJ 10 ML, THIAMINE HCL 100 MG in NA CHLORIDE 0.9% 1,000 ML IV SCH (12:52)
[2018-09-11 13:05] LABS: Hematocrit 23.9 % (36.0-45.0)
[2018-09-11] MEDS: HYDROCODONE/APAP 7.5/325 MG TAB PO PRN ×2 (14:51→20:54)
[2018-09-11] MEDS: TRAZODONE 50 MG TABLET PO SCH (20:54)
--- NOTE | 2018-09-11 21:47 | P.CNS ---
Date of Consult: 09/11/18 Reason for Consult: Volume managmement Primary Care Provider: None; GI-Dr. Kebede([place]) Chief Complaint: Hematemesis History of Present Illness: 47-year-old woman with history of alcoholic liver cirrhosis, chronic renal disease, recurrent ascites with multiple paracentesis in the past Presented with bloody vomitus Pt also was complaining of Abd distension and pain In the ER patient was hypotensive. Hemoglobin was found to be at 5.5. White count 5.7. Lactic acid elevated 7.3. Pro calcitonin unremarkable. Blood pressure around 77 systolic. Patient was given IV fluid bolus, Rocephin, octreotide and Protonix. Allergies No Known Allergies Allergy (Verified 09/10/18 18:25) Home Medications: Diphenhydramine [Benadryl*] 2 tab PO BEDTIME PRN 04/06/18 Folic Acid 1 mg PO DAILY 04/06/18 Lactulose [Cephulac*] 15 gm PO DAILY 04/06/18 Ondansetron HCl [Zofran] 4 mg PO Q8H PRN 04/06/18 Rifaximin [Xifaxan] 550 mg PO BID 04/06/18 Thiamine HCl [Vitamin B-1*] 100 mg PO DAILY 04/06/18 Bumetanide [Bumex*] 3 mg PO DAILY 09/10/18 Furosemide 40 mg PO BID 09/10/18 Melatonin/Pyridoxine [Melatonin 5 mg Tablet] 10 mg PO BEDTIME 09/10/18 Midodrine HCl [Proamatine*] 5 mg PO TID 09/10/18 Potassium Gluconate [Potassium] 99 mg PO DAILY 09/10/18 Pyridoxine [Vitamin B-6] 100 mg PO DAILY 09/10/18 Spironolactone 100 mg PO DAILY 09/10/18 Trazodone [Desyrel*] 50 mg PO BEDTIME MDD 1 09/10/18 - Past Medical/Surgical History Diabetic: No -: cirrhosis -: etoh abuse -: abdominal distention -: paracentesis -: vomiting blood for 3 days -: anemia -: varices -: hernia -: Multiple paracentesis -: Hernia repair -: Esophageal banding with multiple EGD's Psychosocial/ Personal History: Patient is single. She has 3 children. She does not work. - Family History Father Medical History: Liver disease Notes: patient adopted, does not any history of her parents - Social History Smoking Status: Current some day smoker Alcohol use: Yes CD- Drugs: No Caffeine use: Yes Place of Residence: Home Physical Examination Temp Pulse Resp BP Pulse Ox 98.8 F 87 12 100/60 100 09/11/18 20:00 09/11/18 20:00 09/11/18 20:00 09/11/18 20:00 09/11/18 20:00 General: Alert, In no apparent distress HEENT: Atraumatic Neck: Supple, Without JVD or thyroid abnormality Respiratory: Clear to auscultation bilaterally Cardiovascular: No edema, Normal pulses, Regular rate/rhythm, Normal S1 S2 Gastrointestinal: Distended, Ascites Integumentary: No rashes - Problems (1) Acute on chronic renal failure Onset Date: 09/11/18 Current Visit: Yes Status: Acute (2) Alcohol abuse Onset Date: 09/11/18 Current Visit: Yes Status: Acute (3) Gastrointestinal hemorrhage Onset Date: 09/11/18 Current Visit: Yes Status: Acute Qualifiers: GI bleed type/associated pathology: gastrointestinal hemorrhage with hematemesis Qualified Code(s): K92.0 - Hematemesis Conclusions/Impression: Assessment and plan Acute anemia Transfuse to keep Hb >7.0 S/P EGD PPI Octreotide plan jolene paracentcis Hold lasix and aldactone Albumin after paracentecis Midodrine prn Lactic acidosis Due to hypovolemic shock Pt with asciticsis Albumin and pressers Shocked liver Hx of alcohol abuse and alcoholic cirrhosis monitor for withdrawal
--- NOTE | 2018-09-11 23:16 | OP ---
Surgeon: Rg Solis MD Procedure To Be Performed: Esophagogastroduodenoscopy. Performing Physician: Rg Solis MD. Indication For Procedure: Upper GI bleed, anemia, history of esophageal varices. Of note, the patient actually follows Dr. Leigh, but he is not available at this time, so he asked me to see the patient. Complexity: High due to probability of therapeutic intervention and low hemoglobin and hematocrit. Plan For Anesthesia: Monitored anesthesia care. Technique: After obtaining informed consent from the patient and explaining risks and complications which include but are not limited to bleeding, infection , perforation, and anesthesia complications, the patient was placed in left lateral position and sedation was given. From then on, the scope was further advanced to the mouth and carefully guided up till the second portion of the duodenum. There was no active bleeding seen in the esophagus, but there were some residual clots of blood in the gastric fundus. Recent stigmata of bleeding were identified and were treated as detailed below. After the completion of examination, the scope and equipment were withdrawn and procedure terminated in a safe manner. Findings: Esophagus: In the mid and distal esophagus, there was evidence of scarring from prior banding procedure. There was one site that appeared to have a little platelet plug that was seen. In the stomach, diffuse portal hypertensive gastropathy seen. (In the past patient has had spontaneous oozing from the gastropathy). The views of the fundus were obscured due to old blood. Duodenum: The bulb and second portion appeared normal. Subsequently the scope was withdrawn and esophageal bands were attached to the tip of the scope and it was reinserted. With the first band, I tried to band the most likely site of bleed which appeared to have the platelet plug. This was not easy initially due to the scarring, however eventually I was able to securely place a band. Another band was successfully placed more proximally on another varix. No bleeding noted during the entire maneuver. Complications: None. Tolerance To Anesthesia: Excellent. Postoperative Diagnoses: Esophageal varices, status post banding. Plan: 1. Continue octreotide and PPI drip. 2. Continue antibiotics. 3. She is scheduled for a paracentesis tomorrow by Radiology. 4. She can follow up with Dr. Leigh if there are no further episodes of bleeding. If however there seems to be evidence of recurrent bleed, she may need to be transferred to a higher level facility for possible other intervention and/or TIPS. She may also need TIPS due to the recurrent ascites that she has been developing. This was discussed with the patient as well as Dr. Washington. /HILARIO Voice ID: [id number] Report ID: [id number] MTDD
[2018-09-12] MEDS: DIPHENHYDRAMINE 25 MG TAB/CAP PO PRN ×2 (00:38→21:55)
[2018-09-12] MEDS: ALBUMIN HUMAN 25% 100 ML IV SCH ×4 (02:16→20:19)
[2018-09-12] MEDS: OCTREOTIDE 500 MCG in NA CHLORIDE 0.9% 500 ML IV SCH ×2 (05:38→17:16)
[2018-09-12] MEDS: PANTOPRAZOLE INJ 80 MG in NA CHLORIDE 0.9% 250 ML IV SCH (05:38)
[2018-09-12 06:26] LABS: Absolute Lymphocytes (CBC) 0.3 K/uL (0.7-4.9); Absolute Monocytes 0.4 K/uL (0.1-1.3); Absolute Neutrophil 3.1 K/uL (1.8-8.0); Basophils % 1.4 % (0-1.3); Eosinophils % 3.9 % (0-4.4); Hematocrit 17.5 % (36.0-45.0); Lymphocytes % 6.5 % (15.3-44.8); MPV 9.2 fL (7.6-11.3); Monocytes % 10.3 % (3.3-12.3)
[2018-09-12 06:31] LABS: Albumin 3.5 g/dL (3.4-5.0); Bilirubin Total 1.8 mg/dL (0.2-1.0); Magnesium 1.9 mg/dL (1.8-2.4); Potassium 3.1 mmol/L (3.5-5.1); Protein, Total 5.5 g/dL (6.4-8.2)
[2018-09-12] MEDS ORDERED: POTASSIUM 25 MEQ EFFERV TAB PO ONE (07:32)
[2018-09-12 07:52] LABS: Anisocytosis 2+; Blood Morphology Comment NOTED (NOT SEEN); Platelet Estimate DECR; Polychromasia 1+
[2018-09-12 07:59] LABS: Hematocrit 17.9 % (36.0-45.0)
[2018-09-12] MEDS: SPIRONOLACTONE 100 MG TAB PO SCH ×2 (09:00→09:45)
[2018-09-12] MEDS: MIDODRINE HCL 5 MG TABLET PO SCH ×3 (09:45→21:52)
[2018-09-12] MEDS: XIFAXAN 550 MG PO SCH ×2 (09:46→20:24)
[2018-09-12] MEDS: LACTULOSE 20 GM/30 ML UCUP PO SCH (09:46)
[2018-09-12] MEDS: CEFTRIAXONE/SWI 1gm 1 GM/10 ML SYR IVP SCH (09:46)
[2018-09-12] MEDS ORDERED: NA CHLORIDE 0.9% 250 ML ONE ×2 (10:02→15:34)
--- NOTE | 2018-09-12 13:24 | P.PN ---
Subjective Date of Service: 09/12/18 Primary Care Provider: None; GI-Dr. Kebede([place]) Chief Complaint: Hematemesis Subjective: Other (Patient doing better. She wants to increase her diet. No vomiting of blood.) Physical Examination - Vital Signs Temperature: 98.8 F Blood Pressure: 89/56 Pulse: 90 Respirations: 18 Pulse Ox (%): 94 - Physical Exam General: Alert, In no apparent distress, Oriented x3, Cooperative HEENT: Atraumatic Neck: Supple Respiratory: Clear to auscultation bilaterally, Normal air movement Cardiovascular: Normal pulses, Regular rate/rhythm Gastrointestinal: Normal bowel sounds, Soft and benign, Non-distended, Ascites Musculoskeletal: No tenderness, No warmth Neurological: Normal speech, Normal strength at 5/5 x4 extr, Normal tone, Normal affect - Studies Medications List Reviewed: Yes Assessment & Plan Discharge Plan: Home Plan to discharge in: 48 Hours Physician Review Additional Text: Impression: Hematemesis and hypotension secondary to acute on chronic anemia with upper GI bleed complicated with history of alcoholic cirrhosis and history of esophageal varices Advanced ascites with history of multiple recurrent paracentesis Acute on chronic renal failure, stage II with hypovolemia Alcohol abuse Tobacco abuse Thrombocytopenia secondary to alcoholic cirrhosis Plan: Hematemesis and hypotension secondary to acute on chronic anemia with upper GI bleed complicated with history of alcoholic cirrhosis and history of esophageal varices: Patient stable at this time. Hemoglobin low. Will provide 2 units of blood. Will monitor closely. Will advance diet. Will continue with midodrine. Case discussed with GI. Case also discussed with nephrology. Anticipate discharge once hemoglobin is stable and she is tolerating her diet. Will check with GI on when she can transition off Protonix drip. Alcohol cessation addressed in detail. Compliance also address with the patient. Advanced directives address in detail with the patient as well. Patient understands that she has a terminal illness. If she continues to drink alcohol this will likely worsen her condition. Patient with increased mortality. Will continue to address advanced directives. Advanced ascites with history of multiple recurrent paracentesis: 12 L of fluid removed. Ascites improved. GI recommends that the patient have a TIPS procedure in the near future as she has had recurrent paracentesis. Acute on chronic renal failure, stage II with hypovolemia: Nephrology consulted. Diuretics adjusted by Nephrology Alcohol abuse: Admits alcohol abuse. She continues to drink on a regular basis. Patient does not appear willing to quit. Will continue to address alcohol cessation especially in light of her alcoholic cirrhosis. Tobacco abuse: Will address lifestyle modification education. May need nicotine patch. Thrombocytopenia secondary to alcoholic cirrhosis: Will monitor closely. Time Spent Managing Pts Care (In Minutes): 55
[2018-09-12] MEDS ORDERED: SODIUM CHLORIDE 0.9% 10ML INJ IV PRN (14:44)
[2018-09-12] MEDS: FOLIC ACID 1 MG, MULTIVITAMINS INJ 10 ML, THIAMINE HCL 100 MG in NA CHLORIDE 0.9% 1,000 ML IV SCH (16:00)
[2018-09-12] MEDS: HYDROCODONE/APAP 7.5/325 MG TAB PO PRN (16:07)
[2018-09-12] MEDS ORDERED: FUROSEMIDE 20 MG/ 2ML VIAL IV SCH (19:00)
[2018-09-12] MEDS: TRAZODONE 50 MG TABLET PO SCH (20:20)
[2018-09-12] MEDS: PANTOPRAZOLE 40 MG INJ IVP SCH (20:20)
[2018-09-12] MEDS: MORPHINE 2 MG/ML SYR IV PRN (20:24)
[2018-09-12 21:21] LABS: Hematocrit 25.1 % (36.0-45.0)
[2018-09-12] MEDS ORDERED: POTASSIUM CL SA 10 MEQ TAB PO ONE (22:34)
--- NOTE | 2018-09-12 23:42 | P.PN ---
Subjective Date of Service: 09/12/18 Primary Care Provider: None; GI-Dr. Kbeede([place]) Chief Complaint: Hematemesis Subjective: Improving pt with alcoholic cirrhosis admitted for hematamesis asceites S/P 12liter removal BP on low side now start albumin, cont to hold lasix Cont midodrine K replaced Physical Examination - Vital Signs Temperature: 98.7 F Blood Pressure: 86/50 Pulse: 84 Respirations: 16 Pulse Ox (%): 96 - Physical Exam General: In no apparent distress, Oriented x3 HEENT: Atraumatic Neck: Supple, Without JVD or thyroid abnormality Respiratory: Clear to auscultation bilaterally Cardiovascular: No edema, Normal S1 S2, No rubs Gastrointestinal: Normal bowel sounds, Soft and benign, Distended Integumentary: No rashes - Studies Medications List Reviewed: Yes Assessment And Plan - Current Problems (Diagnosis) (1) Acute on chronic renal failure Onset Date: 09/11/18 Current Visit: Yes Status: Acute (2) Alcohol abuse Onset Date: 09/11/18 Current Visit: Yes Status: Acute (3) Gastrointestinal hemorrhage Onset Date: 09/11/18 Current Visit: Yes Status: Acute Qualifiers: GI bleed type/associated pathology: gastrointestinal hemorrhage with hematemesis Qualified Code(s): K92.0 - Hematemesis - Plan Acute anemia Due to Hematamesis Transfuse to keep Hb >7.0 S/P EGD PPI Octreotide Hold lasix Lactic acidosis Due to hypovolemic shock improved Shocked liver Improving Ascites 2/2 liver cirrhosis S/P paracentesis hold lasix , cont midodrine will give albumin Hx of alcohol abuse and alcoholic cirrhosis monitor for withdrawal Overall poor prognosis
[2018-09-13] MEDS: ALBUMIN HUMAN 25% 100 ML IV SCH ×3 (02:30→17:21)
[2018-09-13] MEDS: OCTREOTIDE 500 MCG in NA CHLORIDE 0.9% 500 ML IV SCH (02:34)
[2018-09-13] MEDS: ACETAMINOPHEN 500 MG TAB PO PRN (04:17)
[2018-09-13 05:15] VITALS: BMI 24.3
[2018-09-13 06:52] LABS: Absolute Lymphocytes (CBC) 0.2 K/uL (0.7-4.9); Absolute Neutrophil 3.8 K/uL (1.8-8.0); Basophils % 1.3 % (0-1.3); Eosinophils % 3.9 % (0-4.4); Hematocrit 24.5 % (36.0-45.0); Lymphocytes % 4.5 % (15.3-44.8); MPV 9.5 fL (7.6-11.3); Monocytes % 11.6 % (3.3-12.3); RBC Red Blood Cell Count 2.67 M/uL (3.86-4.86)
[2018-09-13 06:53] LABS: Absolute Monocytes 0.6 K/uL (0.1-1.3)
[2018-09-13 06:56] LABS: Albumin 3.5 g/dL (3.4-5.0); Bilirubin Total 2.4 mg/dL (0.2-1.0); Magnesium 1.9 mg/dL (1.8-2.4); Protein, Total 5.8 g/dL (6.4-8.2)
[2018-09-13] MEDS: PANTOPRAZOLE 40 MG INJ IVP SCH ×2 (09:03→20:19)
[2018-09-13] MEDS: MIDODRINE HCL 5 MG TABLET PO SCH ×3 (09:03→20:19)
[2018-09-13] MEDS: LACTULOSE 20 GM/30 ML UCUP PO SCH (09:03)
[2018-09-13] MEDS: SPIRONOLACTONE 100 MG TAB PO SCH (09:04)
[2018-09-13] MEDS: CEFTRIAXONE/SWI 1gm 1 GM/10 ML SYR IVP SCH (09:05)
[2018-09-13] MEDS: XIFAXAN 550 MG PO SCH ×2 (09:19→20:20)
[2018-09-13] MEDS: FOLIC ACID 1 MG, MULTIVITAMINS INJ 10 ML, THIAMINE HCL 100 MG in NA CHLORIDE 0.9% 1,000 ML IV SCH (10:15)
[2018-09-13] MEDS: ONDANSETRON 4 MG/2 ML VIAL IV PRN (10:15)
--- NOTE | 2018-09-13 10:37 | P.PN ---
Subjective Date of Service: 09/13/18 Primary Care Provider: None; GI-Dr. Kebede([place]) Chief Complaint: Hematemesis Subjective: Improving, Doing well Physical Examination - Vital Signs Temperature: 99.7 F Blood Pressure: 96/52 Pulse: 98 Respirations: 16 Pulse Ox (%): 91 - Physical Exam General: Alert, In no apparent distress, Oriented x3, Cooperative HEENT: Atraumatic Neck: Supple Respiratory: Clear to auscultation bilaterally, Normal air movement Cardiovascular: Normal pulses, Regular rate/rhythm Gastrointestinal: Normal bowel sounds, Soft and benign, No tenderness, No masses , No rebound, No guarding, Ascites Musculoskeletal: No erythema, No tenderness, No warmth Integumentary: No tenderness/swelling, No erythema, No warmth, No cyanosis Neurological: Normal speech, Normal strength at 5/5 x4 extr, Normal tone, Normal affect - Studies Medications List Reviewed: Yes Assessment & Plan Discharge Plan: Home Plan to discharge in: 48 Hours Physician Review Additional Text: Impression: Hematemesis and hypotension secondary to acute on chronic anemia with upper GI bleed complicated with history of alcoholic cirrhosis and history of esophageal varices Advanced ascites with history of multiple recurrent paracentesis Acute on chronic renal failure, stage II with hypovolemia Alcohol abuse Tobacco abuse Thrombocytopenia secondary to alcoholic cirrhosis Plan: Hematemesis and hypotension secondary to acute on chronic anemia with upper GI bleed complicated with history of alcoholic cirrhosis and history of esophageal varices: Patient stable at this time. Patient received another 2 units of blood yesterday. Hemoglobin improved to 8.3. Continue to monitor closely. Will try to maintain hemoglobin above 8.0. Case discussed with GI yesterday. Will discontinue octreotide and continue with Protonix b.i.d.. Will increase midodrine for better blood pressure control. Encourage ambulation. Diet advanced. Alcohol cessation continues to be addressed. Anticipate discharge in the next 24-48 hr. If hemoglobin stable. Advanced ascites with history of multiple recurrent paracentesis: 12 L of fluid removed. Ascites improved. GI recommends that the patient have a TIPS procedure in the near future as she has had recurrent paracentesis. This will need to be done as an outpatient. Patient understands that she will need see hepatology as an outpatient for this. Acute on chronic renal failure, stage II with hypovolemia: Nephrology consulted. Diuretics adjusted by Nephrology Alcohol abuse: Alcohol cessation addressed in detail. Patient understands the risks and complications with alcohol. Tobacco abuse: Will address lifestyle modification education. May need nicotine patch. Thrombocytopenia secondary to alcoholic cirrhosis: This has improved. Will monitor closely. Time Spent Managing Pts Care (In Minutes): 55
[2018-09-13] MEDS ORDERED: ALBUMIN HUMAN 25% 50 ML IV ONE (10:56)
--- NOTE | 2018-09-13 14:50 | PN ---
Date of Progress Note: 09/13/2018 Chief Complaint: Acute on chronic kidney injury. History Of Present Illness: The patient has acute on chronic nonoliguric kidney injury. She is on IV fluids and nutrition for alcoholic cirrhosis. She has paracentesis done for ascites with tense ascites present on arrival. The patient is on potassium replacement and she was started on albumin and midodrine for hepatorenal syndrome. The patient has nonoliguric urine output. Blood pressure in systolic is improving from 80s to 90s. The patient is on midodrine for blood pressure support to prevent renal hypoperfusion and to control hepatorenal syndrome. Review of Systems: The patient denies fever, chills. Physical Examination: Lungs: Few crackles at the bases. Heart: S1, S2. Abdomen: Soft, benign. Extremities: No edema. Laboratory Work: Sodium 136, potassium 4.0, chloride 108, CO2 18, BUN 30, creatinine 1.08, calcium is 7.5, magnesium 1.9, total bilirubin 2.4, albumin 3.5. Impression And Plan: 1. Acute on chronic kidney injury with hepatorenal syndrome. Continue midodrine. Blood pressure is improving. Adjust midodrine dose according to blood pressure. 2. Alcoholic liver disease. Alcohol abuse, gastrointestinal hemorrhage. Monitor hemoglobin level and continue PPI and octreotide. 3. Acute kidney injury. Lasix currently on hold. 4. Hepatorenal syndrome. Continue midodrine with albumin for blood pressure control. The patient has ascites and required paracentesis for tense ascites. FÁTIMA/HILARIO Voice ID: [id number] Report ID: [id number] MTDD
[2018-09-13 18:08] LABS: Hematocrit 26.7 % (36.0-45.0)
[2018-09-13] MEDS: TRAZODONE 50 MG TABLET PO SCH (20:19)
[2018-09-14] MEDS: ALBUMIN HUMAN 25% 100 ML IV SCH ×3 (00:03→16:31)
[2018-09-14] MEDS: DIPHENHYDRAMINE 25 MG TAB/CAP PO PRN ×2 (00:24→22:27)
[2018-09-14] MEDS: HYDROCODONE/APAP 7.5/325 MG TAB PO PRN ×2 (02:14→20:47)
[2018-09-14 06:13] LABS: Absolute Lymphocytes (CBC) 0.2 K/uL (0.7-4.9); Absolute Monocytes 0.6 K/uL (0.1-1.3); Absolute Neutrophil 3.4 K/uL (1.8-8.0); Basophils % 1.3 % (0-1.3); Eosinophils % 4.8 % (0-4.4); Hematocrit 25.3 % (36.0-45.0); Lymphocytes % 4.6 % (15.3-44.8); MPV 9.3 fL (7.6-11.3); Monocytes % 13.6 % (3.3-12.3)
[2018-09-14 06:55] LABS: Magnesium 2.1 mg/dL (1.8-2.4); Potassium 3.7 mmol/L (3.5-5.1)
[2018-09-14] MEDS ORDERED: POTASSIUM 25 MEQ EFFERV TAB PO ONE (07:23)
[2018-09-14] MEDS: LACTULOSE 20 GM/30 ML UCUP PO SCH (08:33)
[2018-09-14] MEDS: PANTOPRAZOLE 40 MG INJ IVP SCH (08:34)
[2018-09-14] MEDS: FOLIC ACID 1 MG TABLET PO SCH (08:34)
[2018-09-14] MEDS: THIAMINE HCL 100 MG TABLET PO SCH (08:34)
[2018-09-14] MEDS: CEFTRIAXONE/SWI 1gm 1 GM/10 ML SYR IVP SCH (08:35)
[2018-09-14] MEDS: MIDODRINE HCL 5 MG TABLET PO SCH ×3 (08:49→20:47)
[2018-09-14] MEDS: XIFAXAN 550 MG PO SCH ×2 (08:50→20:48)
[2018-09-14] MEDS: SPIRONOLACTONE 100 MG TAB PO SCH (08:52)
[2018-09-14 11:46] LABS: Hematocrit 25.7 % (36.0-45.0)
--- NOTE | 2018-09-14 11:57 | P.PN ---
Subjective Date of Service: 09/14/18 Primary Care Provider: None; GI-Dr. Kebede([place]) Chief Complaint: Hematemesis Subjective: Doing well (No melena, hematemesis or rectal bleeding), Other ( Desires paracentesis) Physical Examination - Vital Signs Temperature: 98.8 F Blood Pressure: 95/54 Pulse: 88 Respirations: 16 Pulse Ox (%): 95 - Physical Exam General: Alert, In no apparent distress, Oriented x3, Cooperative HEENT: Atraumatic Neck: Supple Respiratory: Clear to auscultation bilaterally, Normal air movement Cardiovascular: Normal pulses, Regular rate/rhythm Gastrointestinal: Normal bowel sounds, No tenderness, No masses, No rebound, No guarding, Ascites (Large amount of ascites noted) Musculoskeletal: No erythema, No tenderness, No warmth Integumentary: No tenderness/swelling, No erythema, No warmth, No cyanosis Neurological: Normal speech, Normal strength at 5/5 x4 extr, Normal tone, Normal affect - Studies Medications List Reviewed: Yes Assessment & Plan Discharge Plan: Home Plan to discharge in: 24 Hours Physician Review Additional Text: Impression: Hematemesis and hypotension secondary to acute on chronic anemia with upper GI bleed complicated with history of alcoholic cirrhosis and history of esophageal varices Advanced ascites with history of multiple recurrent paracentesis Acute on chronic renal failure, stage II with hypovolemia Alcohol abuse Tobacco abuse Thrombocytopenia secondary to alcoholic cirrhosis Plan: Hematemesis and hypotension secondary to acute on chronic anemia with upper GI bleed complicated with history of alcoholic cirrhosis and history of esophageal varices: Patient improving and stable at this time. Patient has received a total of 4 units of blood. Hemoglobin remained stable. Patient off octreotide. Will transition to Protonix oral b.i.d.. Midodrine was increased yesterday with good blood pressure control. Patient tolerating diet. Anticipate discharge tomorrow after paracentesis. Patient will need to receive albumin after paracentesis. Patient will need to follow up with GI as an outpatient for referral for TIPS procedure and follow up with hepatology. Patient counseled extensively on alcohol cessation. Patient understands this especially if she is to improve and be considered for liver transplant in the future. Patient plans to quit alcohol. I will turn the service over to Dr. Reza tomorrow. I will go over the plan of care with her. Advanced ascites with history of multiple recurrent paracentesis: 12 L of fluid removed on September 11. Ascites improved but still present. Patient desires paracentesis prior to discharge. Will make arrangements for paracentesis tomorrow. Anticipate discharge tomorrow after paracentesis. GI recommends that the patient have a TIPS procedure in the near future as she has had recurrent paracentesis. This will need to be done as an outpatient. Patient understands that she will need see hepatology as an outpatient for this. Acute on chronic renal failure, stage II with hypovolemia: Nephrology consulted. Diuretics adjusted by Nephrology Alcohol abuse: Alcohol cessation addressed in detail. Patient understands the risks and complications with alcohol. Tobacco abuse: Will continue to address lifestyle modification education. May need nicotine patch. Thrombocytopenia secondary to alcoholic cirrhosis: This has improved. Will monitor closely. Time Spent Managing Pts Care (In Minutes): 55
[2018-09-14] MEDS: MORPHINE 2 MG/ML SYR IV PRN (13:36)
[2018-09-14] MEDS: PANTOPRAZOLE 40MG TABLET PO SCH (16:31)
[2018-09-14] MEDS: TRAZODONE 50 MG TABLET PO SCH (20:47)
[2018-09-15] MEDS: ALBUMIN HUMAN 25% 100 ML IV SCH ×2 (00:16→09:00)
--- NOTE | 2018-09-15 01:32 | PN ---
Date of Progress Note: 09/14/2018 Chief Complaint: Acute on chronic kidney injury. History Of Present Illness: The patient was found to have elevated azotemia. She is on IV fluids and is on p.o. clear liquid diet. She has alcoholic liver disease with liver cirrhosis. She was found to have pancreatitis and ascites. Paracentesis was done for ascites. The patient is on potassium replacement. She was started on IV albumin and midodrine for hepatorenal syndrome. The patient has nonoliguric urine output. Blood pressure is improving. Midodrine dose was adjusted. Review of Systems: The patient denies fever or chills. Physical Examination: Lungs: Clear to auscultation bilaterally. Heart: S1, S2. Abdomen: Soft, benign. Extremities: No edema. Laboratory Data: potassium 3.7, chloride 109, CO2 of 17, BUN 23, creatinine 0.95, glucose is 105, calcium 8.2. Impression And Plan: 1. Hepatorenal syndrome. Creatinine level is improving from 1.24 to 0.95. There is persistent hyperazotemia, improving BUN from 46 to 23. 2. Blood pressure is ranging from 96/57 to 105/62. Continue current dose of midodrine. Continue hydration. The patient is on p.o. fluid intake and is on clear liquids. 3. Monitor ammonia level. 4. Hypokalemia, improved. Potassium was 3.1, is improving to 4.0 range. 5. Monitor urine output and continue to evaluate renal function. FÁTIMA/MODDavion Voice ID: [id number] Report ID: [id number] NHAN
[2018-09-15 05:25] LABS: Absolute Lymphocytes (CBC) 0.2 K/uL (0.7-4.9); Absolute Monocytes 0.6 K/uL (0.1-1.3); Absolute Neutrophil 3.3 K/uL (1.8-8.0); Basophils % 0.8 % (0-1.3); Eosinophils % 5.8 % (0-4.4); Hematocrit 24.7 % (36.0-45.0); Lymphocytes % 4.6 % (15.3-44.8); RBC Red Blood Cell Count 2.64 M/uL (3.86-4.86)
[2018-09-15 05:26] LABS: Potassium 3.8 mmol/L (3.5-5.1)
[2018-09-15] MEDS: ACETAMINOPHEN 500 MG TAB PO PRN (05:35)
[2018-09-15] MEDS: PANTOPRAZOLE 40MG TABLET PO SCH ×3 (07:30→16:32)
[2018-09-15] MEDS: POTASSIUM 25 MEQ EFFERV TAB PO ONE ×2 (07:30→12:23)
[2018-09-15] MEDS: SPIRONOLACTONE 100 MG TAB PO SCH ×2 (09:00→12:09)
[2018-09-15] MEDS: CEFTRIAXONE/SWI 1gm 1 GM/10 ML SYR IVP SCH ×2 (09:00→12:24)
[2018-09-15] MEDS: FOLIC ACID 1 MG TABLET PO SCH ×2 (09:00→12:10)
[2018-09-15] MEDS: XIFAXAN 550 MG PO SCH ×2 (09:00→12:12)
[2018-09-15] MEDS: THIAMINE HCL 100 MG TABLET PO SCH ×2 (09:00→12:08)
[2018-09-15] MEDS: MIDODRINE HCL 5 MG TABLET PO SCH ×4 (09:00→16:31)
[2018-09-15] MEDS: LACTULOSE 20 GM/30 ML UCUP PO SCH ×2 (09:00→12:09)
[2018-09-15] MEDS: ONDANSETRON 4 MG/2 ML VIAL IV PRN (09:45)
[2018-09-15 10:47] VITALS: O2SAT 94
--- NOTE | 2018-09-15 11:13 | P.DS ---
Admission Date: 09/10/18 Discharge Date: 09/15/18 Primary Care Provider: None; GI-Dr. Kebede([place]) Disposition: ROUTINE DISCHARGE Discharge Condition: GOOD Reason for Admission: Hematemesis Consultations: Nephrology Procedures: 09/11/2018: Paracentesis, removed 12 L of fluid 09/15/2018: Paracentesis, removed 12 L of fluid Brief History of Present Illness: This is a 47-year-old female with history of alcoholic cirrhosis, chronic renal disease, alcohol abuse admitted for hematemesis with hypotension, acute on chronic anemia, advanced ascites and acute on chronic renal failure. She came to the ER with complaints of abdominal pain related to severe ascites, unable to keep anything down. She reported getting paracentesis done every other week and continues alcohol usage. She does have a history of GI bleed in the past. In the ER, she was hypotensive with a hemoglobin of 5.5, creatinine of 1.2 and GFR 48 along with lactic acid elevations. Her blood pressure was in the 70s systolic. In the ER, she was given IV fluid bolus, Rocephin, octreotide and Protonix which improved her blood pressure to 99-100 systolic. Patient was then admitted to the ICU for further management. Of note, Patient recently moved back to the area from . Hospital Course: Hematemesis hypotension Acute on chronic anemia Upper GI bleed History of alcoholic cirrhosis History of esophageal varices Patient was admitted to the ICU for further management. GI was consulted, EGD was planned. She received 5 units of packed red blood cells throughout the stay. Patient was started on octreotide and Protonix drip. Patient underwent an EGD. Patient had a lot of scarring from her previous esophageal varices. Banding was done. No active bleeding identified. She was continued on Protonix , Rocephin and octreotide. She was slowly started on clear liquid diet, advance as tolerated. She underwent 2 sessions of paracentesis prior to discharge. Her hemoglobin was maintained above 8.0. She was started on midodrine. Octreotide was discontinued prior to discharge and she was continued on Protonix twice a day. Her midodrine was increased for better blood pressure control. Her hemoglobin and remained stable status post 4 units of PRBCs. She was tolerating a diet prior to discharge. Blood cultures remained negative Urine culture remained negative Advanced ascites with history of multiple recurrent paracentesis Patient underwent abdominal paracentesis x2 throughout the stay. 12L of fluid removed both times. GI recommends that the patient have a TIPS procedure in the near future as she has had recurrent paracentesis. patient understands that she will need see hepatology as an outpatient for this. Acute on chronic renal failure, stage II with hypovolemia Nephrology was consulted. IV fluids were started along with diuretic therapy to prevent overload. Nephrology consulted. And diuretics were held as per Nephrology. Her creatinine improved back to baseline, in the normal range prior to discharge. Alcohol abuse: Admits alcohol abuse. She continues to drink on a regular basis. She is interested in quitting, states that she was taught alcohol usage. Education address concerning the need for cessation especially in light of her liver cirrhosis and GI bleed. Patient understood that she has a terminal illness. If she continues to drink alcohol this will likely worsen her condition. Vital Signs/Physical Exam: Temp Pulse Resp BP Pulse Ox 98.9 F 86 16 90/60 94 09/15/18 08:00 09/15/18 08:00 09/15/18 08:00 09/15/18 08:00 09/15/18 08:00 General: Alert, In no apparent distress, Oriented x3 HEENT: Atraumatic, PERRLA, EOMI Neck: Supple, JVD not distended Respiratory: Clear to auscultation bilaterally, Normal air movement Cardiovascular: Regular rate/rhythm, Normal S1 S2 Gastrointestinal: Normal bowel sounds, No tenderness Musculoskeletal: No tenderness Integumentary: No rashes Neurological: Normal speech, Normal tone, Normal affect Lymphatics: No axilla or inguinal lymphadenopathy Laboratory Data at Discharge: WBC 4.4 K/uL (4.3-10.9) 09/15/18 04:48 Hgb 8.4 g/dL (12.0-15.0) L 09/15/18 04:48 Hct 24.7 % (36.0-45.0) L 09/15/18 04:48 Plt Count 101 K/uL (152-406) L 09/15/18 04:48 PT 17.3 SECONDS (9.5-12.5) H 09/10/18 14:45 INR 1.46 09/10/18 14:45 APTT 30.9 SECONDS (24.3-36.9) 09/10/18 14:45 Sodium 137 mmol/L (136-145) 09/15/18 04:48 Potassium 3.8 mmol/L (3.5-5.1) 09/15/18 04:48 BUN 18 mg/dL (7-18) 09/15/18 04:48 Creatinine 0.89 mg/dL (0.55-1.3) 09/15/18 04:48 Glucose 108 mg/dL (74-106) H 09/15/18 04:48 Magnesium 2.0 mg/dL (1.8-2.4) 09/15/18 04:48 Total Bilirubin 2.4 mg/dL (0.2-1.0) H 09/13/18 05:26 AST 170 U/L (15-37) H 09/13/18 05:26 ALT 85 U/L (12-78) H 09/13/18 05:26 Alkaline Phosphatase 66 U/L (45-117) 09/13/18 05:26 Triglycerides 71 mg/dL (<150) 09/11/18 04:57 Cholesterol 66 mg/dL (<200) 09/11/18 04:57 HDL Cholesterol 27 mg/dL (40-60) L 09/11/18 04:57 Cholesterol/HDL Ratio 2.44 09/11/18 04:57 Home Medications: Diphenhydramine [Benadryl*] 2 tab PO BEDTIME PRN 04/06/18 Folic Acid 1 mg PO DAILY 04/06/18 Lactulose [Cephulac*] 15 gm PO DAILY 04/06/18 Ondansetron HCl [Zofran] 4 mg PO Q8H PRN 04/06/18 Rifaximin [Xifaxan] 550 mg PO BID 04/06/18 Thiamine HCl [Vitamin B-1*] 100 mg PO DAILY 04/06/18 Melatonin/Pyridoxine [Melatonin 5 mg Tablet] 10 mg PO BEDTIME 09/10/18 Potassium Gluconate [Potassium] 99 mg PO DAILY 09/10/18 Pyridoxine [Vitamin B-6*] 100 mg PO DAILY 09/10/18 Spironolactone 100 mg PO DAILY 09/10/18 Trazodone [Desyrel*] 50 mg PO BEDTIME MDD 1 09/10/18 Midodrine HCl 10 mg PO TID #90 tablet 09/15/18 Pantoprazole [Protonix Tab*] 40 mg PO BIDAC #60 tab 09/15/18 New Medications: Midodrine HCl 10 mg PO TID #90 tablet Pantoprazole [Protonix Tab*] 40 mg PO BIDAC #60 tab Patient Discharge Instructions: Please follow up with the primary care physician 1 week. Please follow up with Gastroenterology in 2-3 weeks. Information provided to you Diet: Low sodium Activity: Ad alina Time spent managing pt's care (in minutes): 55
[2018-09-15] MEDS ORDERED: ALBUMIN HUMAN 25% 100 ML IV ONE (11:18)
--- NOTE | 2018-09-15 11:22 | RAD REPORT ---
EXAM DESCRIPTION: US - Paracentesis Proc Guidance - 09/15/2018 10:59 am CLINICAL HISTORY: Ascites COMPARISON: Multiple prior paracentesis procedures TECHNIQUE: The patient presents from the fourth floor for ultrasound-guided paracentesis. The proce dure, risks and alternatives were discussed with the patient in detail. Oral and written consent were obtained. Time out procedure was performed. The patient had no contraindicated allergy or medicati on history. PT, INR values within acceptable limits. Preliminary sonographic evaluation identified right lower quadrant access site. The skin and deeper tissues were anesthetized with 1 percent lidocaine. Under direct sonographic visualization, a parace ntesis catheter was advanced into the peritoneal cavity. Large volume drainage was initiated. Approx imately 12 liters of ascites removed. At the conclusion of the procedure, catheter was withdrawn and a bandage placed at the puncture site. Patient was transferred back to the floor for continued care. Albumin protocol deferred to the prima ry or consulting nephrology service. Patient's nurse was contacted after the procedure regarding the albumin therapy protocol. IMPRESSION: Ultrasound-guided paracentesis as detailed.
[2018-09-15] MEDS: MORPHINE 2 MG/ML SYR IV PRN (12:23)
[2018-09-15] MEDS: HYDROCODONE/APAP 7.5/325 MG TAB PO PRN (16:32)
[2018-09-15 17:39] VITALS: BP 98/54; TEMP 98.2
--- NOTE | 2018-09-16 03:50 | PN ---
Date of Progress Note: 09/15/2018 Chief Complaint: [id number] kidney injury. History Of Present Illness: The patient was found to have elevated azotemia. She is on IV fluids, a nd she is advancing with p.o. intake. She was started on clear liquid diet. She has alcoholic liver disease, liver cirrhosis. She was found to have pancreatitis and ascites. She underwent paracentes is. Review of Systems: Denies fever or chills. Physical Examination: Lungs: Clear to auscultation bilaterally. Heart: S1 and S2. Abdomen: Soft, benign, nontender. Extremities: No edema. Laboratory Data: Potassium 3.7, BUN 23, creatinine 0.95, and glucose 105. Impression And Plan: 1.Acute kidney injury. Hepatorenal syndrome. Creatinine level is improving from 1.24 to 0.95. 2.Persistent hyperazotemia, BUN improving from 46 to 23. 3.Hypotension. Continue midodrine. Adjust midodrine dose for systolic blood pressure 100. Continu e IV hydration. 4.Liver cirrhosis, chronic liver disease. Monitor ammonia level. 5.Hypokalemia. Potassium level is improving. Continue replacement. EB/MODL Voice ID: [id number] Report ID: [id number]
== END 2018-09-15 19:10 | disposition home or self-care (01) | DRG 432 ==
LOC: ER 14:21 → ERHOLD 16:15 → 3RD-ICU 17:52 → 4TH 09-11 18:45
PROVIDERS: ADMIT Family Medicine; ATTEND Family Medicine
PROC: 30233N1 Transfusion of Nonautologous Red Blood Cells into Peripheral Vein, Percutaneous Approach (ICD-10-PCS; principal; 2018-09-10 16:31)
PROC: 06L38CZ Occlusion of Esophageal Vein with Extraluminal Device, Via Natural or Artificial Opening Endoscopic (ICD-10-PCS; 2018-09-11)
PROC: 0W9G3ZZ Drainage of Peritoneal Cavity, Percutaneous Approach (ICD-10-PCS; 2018-09-11)
PROC: 0W9G3ZZ Drainage of Peritoneal Cavity, Percutaneous Approach (ICD-10-PCS; 2018-09-15)
DX: K70.31 Alcoholic cirrhosis of liver with ascites (principal); R57.1 Hypovolemic shock; K72.00 Acute and subacute hepatic failure without coma; K85.90 Acute pancreatitis without necrosis or infection, unspecified; K92.0 Hematemesis; N17.9 Acute kidney failure, unspecified; E87.2 Acidosis; I95.9 Hypotension, unspecified; F17.210 Nicotine dependence, cigarettes, uncomplicated; F10.20 Alcohol dependence, uncomplicated; D63.8 Anemia in other chronic diseases classified elsewhere; N18.2 Chronic kidney disease, stage 2 (mild); D69.6 Thrombocytopenia, unspecified; E87.6 Hypokalemia
CPT/HCPCS: 36415; 36430; 49083; 76770; 80048; 80053; 80061; 80076; 80307; 82140; 83605; 83735; 84132; 84145; 84439; 84443; 85014; 85018; 85025; 85610; 85730; 86850; 86900; 86901; 87040; 93005; 93306; 97163; 99284; C9113; J0696; J1940; J2001; J2250; J2270; J2354; J2405; J2704; J3411; J3475; J7030; P9016; P9045; P9047

== ENCOUNTER 2018-09-23 16:49 | Inpatient (IN) | payer MEDICAID ==
--- OUTSIDE RECORDS SUMMARY | 2018-09-23 16:50 | XMS REPORT | Clinical Summary ---
:1970 Author Organization [facility] Address [address] [place] [address] Care Team Providers Name Role Phone Alison [...] Sr., MD Sanders, Sunny Buchanan MD after 09/22/2017 Social History Tobacco Use Types Packs/Day Years [...] Taken Blood Pressure 109/68 08/08/2018 4:30 PM PUTTY MAKER Pulse 105 08/08/2018 4:30 PM PUTTY MAKER Temperature 36.6 C (97.9 F) 08/08/2018 3:40 PM PUTTY MAKER Respiratory Rate 18 08/08/2018 4:30 PM PUTTY MAKER Oxygen Saturation 100% 08/08/2018 3:40 PM PUTTY MAKER Inhaled Oxygen Concentration - - Weight 59 kg (130 lb) 08/04/2018 4:30 AM PUTTY MAKER Height 167.6 cm (5' 6") 08/04/2018 4:30 AM PUTTY MAKER Body Mass Index 20.98 08/04/2018 4:30 AM PUTTY MAKER Plan of Treatment Health Maintenance Due Date Last Done Comments CERVICAL CANCER SCREENING 1990 INFLUENZA VACCINE 03/05/2018 Procedures Procedure Name Priority Date/Time Associated Comments Diagnosis ESTIMATED GFR Routine 08/08/2018 2:25 Results for this PM P[facility]TY MAKER procedure are in the results section. BASIC METABOLIC PANEL Routine 08/08/2018 2:25 Results for this PM [facility]ER procedure are in the results section. US ABDOMINAL Routine 08/08/2018 9:50 Results for this PARACENTESIS IMAGING AM [facility] MAKER procedure are in the results section. ESTIMATED GFR Routine 08/07/2018 4:40 Results for this AM [facility] procedure are in the results section. BASIC METABOLIC PANEL Routine 08/07/2018 4:40 Results for this AM [facility]ER procedure are in the results section. VENOUS BLOOD GAS Routine 08/06/2018 6:42 Results for this PM [facility] procedure are in the results section. US ABDOMINAL Routine 08/06/2018 2:30 Results for this PARACENTESIS IMAGING PM [facility]TY MAKER procedure are in the results section. SMEAR REVIEW Routine 08/06/2018 6:45 Results for this AM [facility] procedure are in the results section. ESTIMATED GFR Routine 08/06/2018 6:45 Results for this AM [facility] procedure are in the results section. LACTIC ACID LEVEL Routine 08/06/2018 6:45 Results for this AM [facility] procedure are in the results section. HC COMPLETE BLD COUNT Routine 08/06/2018 6:45 Results for this W/AUTO DIFF AM [facility] procedure are in the results section. PROTHROMBIN TIME WITH Routine 08/06/2018 6:45 Results for this INR AM [facility]KER procedure are in the results section. BASIC METABOLIC PANEL Routine 08/06/2018 6:45 Results for this AM [facility]ER procedure are in the results section. PARTIAL THROMBOPLASTIN Routine 08/06/2018 6:45 Results for this TIME (PTT) AM [facility] procedure are in the results section. LACTIC ACID LEVEL, Timed 08/05/2018 6:00 Results for this SEPSIS - NOW AND REPEAT PM [facility]TY MAKER procedure are in 2X EVERY 3 HOURS the results section. LACTIC ACID LEVEL, Timed 08/05/2018 3:25 Results for this SEPSIS - NOW AND REPEAT PM [facility]TY [facility]KER procedure are in 2X EVERY 3 HOURS the results section. SMEAR REVIEW Routine 08/05/2018 4:35 Results for this AM [facility]ER procedure are in the results section. ESTIMATED GFR Routine 08/05/2018 4:35 Results for this AM [facility] procedure are in the results section. AMMONIA LEVEL Routine 08/05/2018 4:35 Results for this AM [facility]ER procedure are in the results section. BASIC METABOLIC PANEL Routine 08/05/2018 4:35 Results for this AM [facility]ER procedure are in the results section. HC COMPLETE BLD COUNT Routine 08/05/2018 4:35 Results for this W/AUTO DIFF AM [facility] procedure are in the results section. US ABDOMINAL STAT 08/04/2018 1:35 Results for this PARACENTESIS IMAGING PM [facility]TY MAKER procedure are in the results section. XR CHEST 1 VW PORTABLE STAT 08/04/2018 5:19 Results for this AM [facility] procedure are in the results section. SMEAR REVIEW STAT 08/04/2018 5:00 Results for this AM [facility] procedure are in the results section. AMMONIA LEVEL STAT 08/04/2018 5:00 Results for this AM [facility] procedure are in the results section. ESTIMATED GFR STAT 08/04/2018 5:00 Results for this AM [facility] procedure are in the results section. MAGNESIUM LEVEL STAT 08/04/2018 5:00 Results for this AM [facility] procedure are in the results section. PARTIAL THROMBOPLASTIN STAT 08/04/2018 5:00 Results for this TIME (PTT) AM [facility] procedure are in the results section. PROTHROMBIN TIME WITH STAT 08/04/2018 5:00 Results for this INR AM [facility]ER procedure are in the results section. HC COMPLETE BLD COUNT STAT 08/04/2018 5:00 Results for this W/AUTO DIFF AM [facility] procedure are in the results section. COMPREHENSIVE METABOLIC STAT 08/04/2018 5:00 Results for this PANEL AM [facility]KER procedure are in the results section. after 09/22/2017 Results Estimated GFR (08/08/2018 2:25 PM PUTTY MAKER)Only the most recent of5 resultswithin the time period is included. Estimated GFR 59 (A) mL/min/1.73 m2 [facility] Comment: [facility] CatergoryUnitsInterpretation G1 >=90 Normal or high G2 60-89Mildly decreased [id number] to moderately decreased [id number] to severely decreased G4 15-29Severely decreased G5 <15Kidney failure The eGFR was calculated using the Chronic Kidney Disease Epidemiology Collaboration (CKD-EPI) equation. Interpretation is based on recommendations of the National Kidney Foundation-Kidney Disease Outcomes Quality Initiative (NKF-KDOQI) published in 2014. Specimen Plasma specimen Performing Organization Address City/State/Zipcode [place] [address], [address] [place] [address] PATHOLOGY AND GENOMIC S MEDICINE [facility] THE [address] [place] [address] [facility] Basic metabolic panel (08/08/2018 2:25 PM PUTTY MAKER)Only the most recent of4 resultswithin the time period is included. Sodium 139 135 - 148 mEq/L [facility] Potassium 3.7 3.5 - 5.0 mEq/L [facility] Chloride 107 98 - 112 mEq/L [facility] CO2 17 (L) 24 - 31 mEq/L [facility] Anion gap 15 7 - 15 mEq/L [facility] BUN 20 6 - 20 mg/dL [facility] Creatinine 1.10 (H) 0.50 - 0.90 mg/dL [facility] Glucose 105 (H) 65 - 99 mg/dL [facility] Calcium 9.2 8.3 - 10.2 mg/dL [facility] Specimen Plasma specimen Performing Organization Address City/State/[place]code [place] [address], [address] [place] [address] PATHOLOGY AND GENOMIC S MEDICINE [facility] THE [address] [place] [address] [facility] US Abdominal Paracentesis Imaging (08/08/2018 9:50 AM PUTTY MAKER)Only the most recent of3 resultswithin the time period is included. Narrative Performed At [facility] Ultrasound-guided paracentesis. Clinical Indication Ascites. Anesthesia [...] anesthetic. Using real-time ultrasound guidance, a 5 Prydeinig Yueh catheter was advanced successfully into the peritoneal cavity with return of cloudy yellow ascites. A total of 5000 mL of fluid was removed. The Yueh catheter was removed and hemostasis was achieved with manual compression. The patient tolerated the procedure well. Complications None. Impression: Successful ultrasound-guided paracentesis with removal of 5000 ml of cloudy yellow ascites. [id number] Procedure Note Hm Interface, Radiology Results Incoming - 08/08/2018 12:03 PM PUTTY MAKER Procedure Ultrasound-guided paracentesis. Clinical Indication Ascites. Anesthesia [...] anesthetic. Using real-time ultrasound guidance, a 5 Prydeinig Yueh catheter was advanced successfully into the peritoneal cavity with return of cloudy yellow ascites. A total of 5000 mL of fluid was removed. The Yueh catheter was removed and hemostasis was achieved with manual compression. The patient tolerated the procedure well. Complications None. Impression: Successful ultrasound-guided paracentesis with removal of 5000 ml of cloudy yellow ascites. [facility]-[id number] Performing Organization Address City/[facility] Phone Number [facility] [address] [place] [address] Venous blood gas (08/06/2018 6:42 PM PUTTY MAKER) pH, venous 7.41 7.32 - 7.42 [facility] pCO2, venous 24 (L) 45 - 51 mmHg [facility] pO2, venous 75 (H) 25 - 40 mmHg [facility] Base excess, venous -9 (L) -2 - 2 meq/L [facility] O2 saturation, venous 95 (H) 40 - 70 % [facility] Bicarbonate, venous 14.5 (L) 21.0 - 28.0 mmol/L [facility] Specimen Blood Performing Organization Address City/[facility] [place] Number [place] [address], [address] [place] [address] PATHOLOGY AND GENOMIC S MEDICINE [facility] THE [address] [place] [address] [facility] Smear review (08/06/2018 6:45 AM PUTTY MAKER)Only the most recent of3 resultswithin the time period is included. Platelet slide review Decreased (A) [facility] Anisocytosis Moderate [facility] Tear drop cells Occasional [facility] Schistocytes Occasional [facility] Spherocytes Occasional [facility] Performing Organization Address City/[facility] Phone Number [facility] DEPARTMENT OF [facility] [place] [address] PATHOLOGY [facility] THE [address] Partial thromboplastin time, activated (08/06/2018 6:45 AM PUTTY MAKER)Only the most recent of2 resultswithin the time period is included. PTT 42.1 (H) 23.0 - 36.0 sec [facility] THE Comment: [facility] PTT therapeutic range for unfractionated heparin is 61.0-112.0 seconds which corresponds to Anti-Xa 0.3-0.7 U/ml. Specimen Blood Performing Organization Address [facility] Phone Number [facility] DEPARTMENT OF [facility] [address] Prothrombin time with INR (08/06/2018 6:45 AM PUTTY MAKER)Only the most recent of2 resultswithin the time period is included. Prothrombin time 15.2 (H) 11.5 - 14.5 sec [facility] INR 1.2 [facility] THE Comment: [facility] The International Normalized Ratio (INR) is a therapeutic monitoring tool for patients who are stable on oral anticoagulant therapy. An INR of 2.0-3.0 is suggested for deep vein thrombosis/pulmonary embolism. Specimen Blood Performing Organization Address [facility] Phone Number [facility] DEPARTMENT OF [facility] [address] [address] [address] CBC with platelet and differential (08/06/2018 6:45 AM PUTTY MAKER)Only the most recent of3 resultswithin the time period is included. WBC 3.27 (L) 4.50 - 11.00 k/uL [facility] RBC 2.52 (L) 4.20 - 5.50 m/uL [facility] HGB 7.7 (L) 12.0 - 16.0 g/dL [facility] HCT 24.6 (L) 37.0 - 47.0 % [facility] MCV 97.6 82.0 - 100.0 fL [facility] MCH 30.6 27.0 - 34.0 pg [facility] MCHC 31.3 31.0 - 37.0 g/dL [facility] RDW - SD 72.1 (H) 37.0 - 55.0 fL [facility] MPV 10.3 8.8 - 13.2 fL [facility] Platelet count 115 (L) 150 - 400 k/uL [facility] Nucleated RBC 0.00 /100 WBC [facility] Neutrophils 72.2 (H) 39.0 - 69.0 % [facility] Lymphocytes 6.7 (L) 25.0 - 45.0 % [facility] Monocytes 14.4 (H) 0.0 - 10.0 % [facility] Eosinophils 4.9 0.0 - 5.0 % [facility] Basophils 1.5 (H) 0.0 - 1.0 % [facility] Immature granulocytes 0.3Comment: "Immature 0.0 - 1.0 % [facility] granulocytes" [facility] (promyelocytes, myelocytes, metamyelocytes) Specimen Blood Performing Organization Address City/[facility] Phone Number [place] [phone], [address] [place] [address] PATHOLOGY AND [place] S MEDICINE [facility] THE [address] Lactic acid level (08/06/2018 6:45 AM PUTTY MAKER) Lactic acid 1.6 0.5 - 2.2 mmol/L [facility] Specimen Plasma specimen Performing Organization Address City/[facility] Phone Number [place] [address], [address] [place] [address] PATHOLOGY AND GENOMIC S MEDICINE [facility] THE [address] [place] [id number] Lactic acid level, SEPSIS - Now and repeat 2x every 3 hours (08/05/2018 6:00 PM PUTTY MAKER)Only the most recent of2 resultswithin the time period is included. Lactic acid 1.5 0.5 - 2.2 mmol/L [facility] Specimen Plasma specimen Performing Organization Address City/State/Zipcode Phone Number [facility] [place] [address], [address] [place] [address] PATHOLOGY AND GENOMIC S MEDICINE [facility] THE [address] [place] [address] [facility] Ammonia level (08/05/2018 4:35 AM PUTTY MAKER)Only the most recent of2 resultswithin the time period is included. Ammonia 276 (H) 11 - 51 umol/L [facility] Specimen Blood Performing Organization Address [facility] [place] Phone Number [facility] [place] [address], [address] [place] [address] PATHOLOGY AND GENOMIC S MEDICINE [facility] THE [address] [place] [address] [facility] XR Chest 1 Vw Portable (08/04/2018 5:19 AM PUTTY MAKER) Narrative Performed At Examination:XR CHEST 1 VW PORTABLE [facility] Clinical History:sob Comparison: None. Technique: Single frontal view of the chest is obtained. Findings: Low lung volume with vascular crowding is noted. The heart size is normal. No pleural effusion is seen. Impression: Low lung volume but no acute infiltrate. [facility]-[id number] Procedure Note Hm Interface, Radiology Results Incoming - 08/04/2018 5:46 AM PUTTY MAKER Examination: XR CHEST 1 VW PORTABLE Clinical History: sob Comparison: None. Technique: Single frontal view of the chest is obtained. Findings: Low lung volume with vascular crowding is noted. The heart size is normal. No pleural effusion is seen. Impression: Low lung volume but no acute infiltrate. [facility]-[id number] Performing Organization Address City/[facility]/Zipcode Phone Number [facility] [address] [place] [address] Magnesium level (08/04/2018 5:00 AM PUTTY MAKER) Magnesium 1.9 1.6 - 2.6 mg/dL [facility] Specimen Plasma specimen Performing Organization Address City/[facility]/Zipcode Phone Number [facility] [place] [address], [address] [place] [address] PATHOLOGY AND GENOMIC S MEDICINE [facility] THE [address] [place] [address] [facility] Comprehensive metabolic panel (08/04/2018 5:00 AM PUTTY MAKER) Sodium 137 135 - 148 mEq/L [facility] Potassium 3.8 3.5 - 5.0 mEq/L [facility] Chloride 109 98 - 112 mEq/L [facility] CO2 13 (LL) 24 - 31 mEq/L [facility] Comment: [facility] CO2 Results called to and read back by FISH VIEYRA RN/ED at [id number] by ROXANNA. Anion gap 15 7 - 15 mEq/L [facility] BUN 23 (H) 6 - 20 mg/dL [facility] Creatinine 1.65 (H) 0.50 - 0.90 mg/dL [facility] Glucose 94 65 - 99 mg/dL [facility] Calcium 8.6 8.3 - 10.2 mg/dL [facility] Protein 7.0 6.3 - 8.3 g/dL [facility] Comment: [facility] [place] 4.6-7.0 g/dL 1 week 4.4-7.6 g/dL 7 months-1year5.1-7.3 g/dL 1-2 years5.6-7.5 g/dL >3 years6.0-8.0 g/dL 18-150 6.3-8.3 g/dL Albumin 3.1 (L) 3.5 - 5.0 g/dL [facility] A/G ratio 0.8 0.7 - 3.8 [facility] Alkaline phosphatase 147 (H) 35 - 104 U/L [facility] AST 66 (H) 10 - 35 U/L [facility] ALT 36 5 - 50 U/L [facility] Total bilirubin 1.0 0.0 - 1.2 mg/dL [facility] Specimen Plasma specimen Performing Organization Address City/State/[place]code [place] [address], [address] [place] [address] PATHOLOGY AND GENOMIC S MEDICINE [facility] THE [address] [place] [address] [facility] after 09/22/2017 Insurance Payer Benefit Plan / Group Subscriber ID Type Phone Address JOSE GARCIA [email or web address] xxxxxxxxx HMO Advance Directives Patient has advance care planning documents on file. For more information, please contact:Keith Mcwilliams[address] [place] [address]
--- OUTSIDE RECORDS SUMMARY | 2018-09-23 16:53 | XMS REPORT | Clinical Summary ---
:1970 Author Organization [facility] Address [address] [place] [address] Care Team Providers Name Role Phone Tray [...] test [facility] to [facility]. Portal hypertension 11/27/2017 [...] [place], Liver Cirrhosis Enriqueta D, (Social Work tax compliance officer / CM - Transition Care Team ) 06/02/2018 Telephone Case Management [place], Liver Cirrhosis Enriqueta D, (Social Work tax compliance officer / CM - Transition Care Team ) 05/30/2018 Telephone Case Management [place], Liver Cirrhosis Enriqueta D, (Social Work tax compliance officer / CM - Transition Care Team ) 05/30/2018 Telephone Case Management [place], Liver Cirrhosis Enriqueta D, (Social Work road consultant/ CM - Transition Care Team ) 05/29/2018 [...] Immunity status testing; Portal hypertension (HCC) after 09/22/2017 Social History Tobacco Use Types [...] 434 ms QTC Calculation(Bazett) 554 ms P [place] 71 degrees R [place] 36 degrees T [place] 61 degrees Normal sinus rhythm Nonspecific ST [...] 436 ms QTC Calculation(Bazett) 515 ms P [place] 94 degrees R [place] 24 degrees T [place] 27 degrees Normal sinus rhythm Low voltage [...] 430 ms QTC Calculation(Bazett) 517 ms R [place] 30 degrees T [place] 20 degrees Accelerated Junctional rhythm Septal infarct [...] 0 ms QTC Calculation(Bazett) 0 ms R [place] 0 degrees T [place] 0 degrees No QRS complexes found, no [...] in with ascites (HCC) the results section. [id number]\\, Routine 11/27/2017 1:34 PM Alcoholic Results for [...] with ascites (HCC) the results section. after 09/22/2017 Results Basic Metabolic Panel (05/27/2018 2:39 AM CDT)Only the most recent of8 resultswithin the time period is included. Sodium 134 (L) 135 - 148 meq/L [facility] Potassium 3.5 3.5 - 5.5 meq/L [facility] Chloride 107 (H) 98 - 106 meq/L [facility] CO2 15 (L) 20 - 31 meq/L [facility] BUN 22 10 - 26 mg/dL [facility] Creatinine 1.51 (H) 0.50 - 1.20 mg/dL [facility] Glucose 105 70 - 110 mg/dL [facility] Calcium 9.7 8.5 - 10.5 mg/dL [facility] EGFR 37Comment: ESTIMATED GFR IS NOT mL/min/1.73 sq m [facility] ACCURATE CREATININE CLEARANCE IN PREDICTING GLOMERULAR FILTRATION RATE. ESTIMATED GFR IS NOT APPLICABLE FOR DIALYSIS PATIENTS. Specimen Blood - Arm, Right Narrative Performed At [facility] Specimen slightly icteric Performing Organization Address City/State/Zipcode Phone Number [facility] [address] [place] [address] [phone] TRANSFUSION SERVICE REPORT - SCAN (05/26/2018 6:12 PM CDT)Only the most recent of7 resultswithin the time period is included. Narrative Performed At US paracentesis (05/26/2018 3:49 PM CDT)Only the most recent of3 resultswithin the time period is included. Narrative Performed At FINAL REPORT [facility] Ultrasound guided paracentesis, 05/26/2018. Clinical History:Ascites. Sedation: None. Saxophone Player:Vishnu Biggs MD Menagerie Caretaker:None. Estimated Blood Loss: < 1 cc. Specimen: [...] was achieved with 1% lidocaine, a 5 Mongolian one-step catheter was advanced into the peritoneal cavity under ultrasound guidance. After completion of drainage, the catheter was removed. There was no evidence of complication. Impression: Successful ultrasound guided paracentesis. Signed: Vishnu Biggs MD Report Verified Date/Time:05/26/2018 16:05:11 Reading Location: [facility] Radiology Reading Room Procedure Note Interface, External Ris In - 05/27/2018 7:25 AM CDT FINAL REPORT Ultrasound guided paracentesis, 05/26/2018. Clinical History: Ascites. Sedation: None. Saxophone Player: Vishnu Biggs MD Menagerie Caretaker: None. Estimated Blood Loss: < 1 cc. [...] was achieved with 1% lidocaine, a 5 Mongolian one-step catheter was advanced into the peritoneal cavity under ultrasound guidance. After completion of drainage, the catheter was removed. There was no evidence of complication. Impression: Successful ultrasound guided paracentesis. Signed: Vishnu Biggs MD Report Verified Date/Time: 05/26/2018 16:05:11 Reading Location: [facility] Radiology Reading Room Performing Organization Address City/State/Zipcode Phone Number [facility] Body fluid culture (05/26/2018 3:20 PM CDT)Only the most recent of2 resultswithin the time period is included. Result No growth [facility] Gram Stain Result 2+ WBCs [facility] Gram Stain Result No organisms seen [facility] Specimen Body Fluid - Ascites Performing Organization Address City/[facility]/Zipcode Phone Number [facility] [address] [place] [address] Body fluid cell count with differential (05/26/2018 3:20 PM CDT)Only the most recent of2 resultswithin the time period is included. Appearance Hazy (A) Clear [facility] Color Straw Colorless, Straw [facility] RBCs 1,220 (H) <=1 /uL [facility] Adjusted WBC Count 193 (H) <=5 /cu mm [facility] Lining Cells 14 (H) <=1 /cu mm [facility] % Segs 44 % [facility] % Lymphs 26 % [facility] % Monos 30 % [facility] % Eos 0 % [facility] % Baso 0 % [facility] Interpretation Negative for malignant [facility] cells. Pathologist: Stanislav Sofia M.D. [facility] (electronic signature) Container Body Fluid Sterile Cup [facility] Specimen Body Fluid - Ascites Performing Organization Address [facility] Phone Number [facility] [address] [place] [address] Potassium (05/26/2018 5:16 AM CDT)Only the most recent of3 resultswithin the time period is included. Potassium 3.7 3.5 - 5.5 meq/L [facility] Specimen Blood - Arm, Right Performing Organization Address [facility] Phone Number [facility] [address] [place] [address] Magnesium (05/26/2018 5:16 AM CDT)Only the most recent of7 resultswithin the time period is included. Magnesium 2.1 1.5 - 3.0 mg/dL [facility] Specimen Blood - Arm, Right Performing Organization Address [facility] Phone Number [facility] [address] [place] [address] Ammonia (05/26/2018 5:16 AM CDT)Only the most recent of3 resultswithin the time period is included. Ammonia 134 (H) 12 - 72 mol/L [facility] Specimen Blood - Arm, Right Performing Organization Address [facility] Phone Number [facility] [address] [place] [address] Comprehensive metabolic panel (05/26/2018 5:16 AM CDT)Only the most recent of5 resultswithin the time period is included. Protein, Total 7.5 6.0 - 8.5 gm/dL [facility] Albumin 3.9 3.5 - 5.0 g/dL [facility] Alkaline Phosphatase 97 30 - 115 U/L [facility] Total Bilirubin 2.3 (H) 0.1 - 1.3 mg/dL [facility] Sodium 134 (L) 135 - 148 meq/L [facility] Potassium 3.7 3.5 - 5.5 meq/L [facility] Chloride 105 98 - 106 meq/L [facility] CO2 16 (L) 20 - 31 meq/L [facility] BUN 25 10 - 26 mg/dL [facility] Creatinine 1.74 (H) 0.50 - 1.20 mg/dL [facility] Glucose 116 (H) 70 - 110 mg/dL [facility] Calcium 9.6 8.5 - 10.5 mg/dL [facility] AST 44 (H) 5 - 40 U/L [facility] ALT 23 6 - 50 U/L [facility] EGFR 31Comment: ESTIMATED GFR mL/min/1.73 sq m [facility] IS NOT ACCURATE CREATININE CLEARANCE IN PREDICTING GLOMERULAR FILTRATION RATE. ESTIMATED GFR IS NOT APPLICABLE FOR DIALYSIS PATIENTS. Specimen Blood - Arm, Right Performing Organization Address City/State/Zipcode Phone Number [facility] [address] [place] [address] Prepare Leuko-Red RBC (05/25/2018 11:54 PM CDT)Only the most recent of2 resultswithin the time period is included. CROSSMATCH COMPATIBLE SAFETRACE TX Unit ABO O Pos SAFETRACE TX UNIT NUMBER [id number] SAFETRACE TX Status TRANSFUSED SAFETRACE TX Blood Bank Product RED BLOOD CELLS SAFETRACE TX PRODUCT CODE [id number] SAFETRACE TX CROSSMATCH COMPATIBLE SAFETRACE TX Unit ABO O Pos SAFETRACE TX UNIT NUMBER [id number] SAFETRACE TX Status TRANSFUSED SAFETRACE TX Blood Bank Product RED BLOOD CELLS SAFETRACE TX PRODUCT CODE [id number] SAFETRACE TX Specimen Other Performing Organization Address City/State/Zipcode Phone Number [facility] [place] CBC with platelet count + automated diff (05/25/2018 3:49 AM CDT)Only the most recent of12 resultswithin the time period is included. WBC 4.5 4.0 - 10.0 K/L [facility] RBC 3.28 (L) 4.00 - 5.00 M/L [facility] Hemoglobin 10.0 (L) 12.0 - 15.5 GM/DL [facility] Hematocrit 29.9 (L) 36.0 - 46.0 % [facility] MCV 91.2 82.0 - 99.0 fL [facility] MCH 30.5 27.0 - 33.0 pg [facility] MCHC 33.4 32.0 - 36.0 GM/DL [facility] RDW 17.4 (H) 12.0 - 15.0 % [facility] Platelets 105 (L) 150 - 430 K/CU MM [facility] MPV 10.5Comment: 6.0 - 11.5 fL [facility] MPV-Approximately 20% positive bias due to method change. nRBC 0 0 - 0 /100 WBC [facility] % Neutros 71 % [facility] % Lymphs 8 % [facility] % Monos 13 % [facility] % Eos 6 % [facility] % Baso 1 % [facility] # Neutros 3.22 1.80 - 8.00 K/L [facility] # Lymphs 0.38 (L) 1.48 - 4.50 K/L [facility] # Monos 0.57 0.00 - 1.30 K/L [facility] # Eos 0.29 0.00 - 0.50 K/L [facility] # Baso 0.05 0.00 - 0.20 K/L [facility] Immature 0 0 - 0 % [facility] Granulocytes-Relative Specimen Blood Performing Organization Address City/[facility]/Zipcode Phone Number [facility] [address] [place] [address] Transfuse Leuko-Red RBC (05/25/2018 12:17 AM CDT)Only the most recent of5 resultswithin the time period is included.Occult blood, stool (05/24/2018 1:38 PM CDT) Occult blood Positive (A) Negative [facility] Specimen Stool Performing Organization Address [facility] Phone Number [facility] [address] [place] [address] Sodium, random urine (05/24/2018 1:38 PM CDT)Only the most recent of2 resultswithin the time period is included. Sodium Urine 28 meq/L [facility] Specimen Urine Narrative Performed At [facility] Reference Range: No Normals Performing Organization Address [facility] Phone Number [facility] [address] [place] [address] Creatinine, random urine (05/24/2018 1:38 PM CDT)Only the most recent of2 resultswithin the time period is included. Creatinine, Ur 42.7 mg/dL [facility] Specimen Urine Narrative Performed At [facility] Reference Range: No Normals Performing Organization Address [facility] Phone Number [facility] [address] [place] [address] [phone] Type and screen, automated (05/24/2018 1:36 PM CDT)Only the most recent of2 resultswithin the time period is included. ABORh O POSITIVE [facility] Antibody Screen NEGATIVE [facility] Specimen Blood Performing Organization Address [facility] Phone Number [facility] [address] [place] [address] [facility] Alpha fetoprotein (AFP), tumor marker (05/24/2018 1:36 PM CDT)Only the most recent of2 resultswithin the time period is included. Alpha-Fetoprotein 5.5 <10.0 ng/mL [facility] Specimen Blood Performing Organization Address City/[facility]/Zipcode Phone Number [facility] [address] [place] [address] [phone] [place] Hepatitis panel, acute (05/24/2018 1:36 PM CDT) Hep A IgM HEPATITIS A TEST NEGATIVE Nonreactive [facility] Hep B C IgM NON-REACTIVE Nonreactive [facility] Hepatitis C Ab NON-REACTIVE Nonreactive [facility] hepatitis B Surface Ag NON-REACTIVE Nonreactive [facility] Specimen Blood Performing Organization Address City/State/Zipcode Phone Number [facility] [address] [place] [address] CENTER US renal complete (05/24/2018 11:37 AM CDT) Narrative Performed At FINAL REPORT [facility] RENAL ULTRASOUND HISTORY: Acute kidney injury COMPARISON: [...] MD Report Verified Date/Time:05/24/2018 11:53:08 Reading Location: [address] Transitional Reading Room Procedure Note Interface, [...] Report Verified Date/Time: 05/24/2018 11:53:08 Reading Location: [facility] Transitional Reading Room Performing Organization Address City/State/Zipcode Phone Number [email or web address] [address] brain without IV contrast (05/23/2018 5:55 PM CDT) Narrative Performed At FINAL REPORT [email or web address] [address] head without contrast 05/23/2018 5:55 PM [...] MD Report Verified Date/Time:05/23/2018 17:56:33 Reading Location: [facility] Radiology Reading Room Procedure Note Interface, External [...] Report Verified Date/Time: 05/23/2018 17:56:33 Reading Location: [facility] Radiology Reading Room Performing Organization Address [facility] Phone Number [facility] XR chest 1 view portable / bedside (05/23/2018 4:25 PM CDT) Narrative Performed At FINAL REPORT [facility] CHEST AP PORTABLE History provided: Altered mental status Heart size normal. Lungs clear and vascularity normal. IMPRESSION: Clear chest. Signed: Gonzalo Serrano MD Report Verified Date/Time:05/23/2018 16:22:47 Reading Location: [facility] Radiology Reading Room Procedure Note Interface, External Ris In - 05/23/2018 4:45 PM CDT FINAL REPORT CHEST AP PORTABLE History provided: Altered mental status Heart size normal. Lungs clear and vascularity normal. IMPRESSION: Clear chest. Signed: Gonzalo Serrano MD Report Verified Date/Time: 05/23/2018 16:22:47 Reading Location: [facility] Radiology Reading Room Performing Organization Address [facility] Phone Number [facility] ECG 12 lead (05/23/2018 3:52 PM CDT)Only the most recent of3 resultswithin the time period is included. Narrative Performed At Ventricular Rate 98 BPM [facility]USE Atrial Rate 98 BPM P-R Interval 136 ms QRS Duration 74 ms Q-T Interval 434 ms QTC Calculation(Bazett) 554 ms P [place] 71 degrees R [place] 36 degrees T [place] 61 degrees Normal sinus rhythm Nonspecific ST abnormality Prolonged QT Abnormal ECG No previous ECGs available Procedure Note Interface, External Ris In - 05/26/2018 4:49 PM CDT Ventricular Rate 98 BPM Atrial Rate 98 BPM P-R Interval 136 ms QRS Duration 74 ms Q-T Interval 434 ms QTC Calculation(Bazett) 554 ms P [place] 71 degrees R [place] 36 degrees T [place] 61 degrees Normal sinus rhythm Nonspecific ST abnormality Prolonged QT Abnormal ECG No previous ECGs available Performing Organization Address [facility] Phone Number GE MUSE Urinalysis w/Microscopic (05/23/2018 3:47 PM CDT) Color, UA Yellow [facility] Clarity, UA Hazy [facility] Specific [place], UA 1.016 1.001 - 1.035 [facility] pH, UA 5.0 5.0 - 8.0 [facility] Protein, UA Negative Negative [facility] Glucose, UA Negative Negative [facility] Ketones, UA Negative Negative [facility] Bilirubin, UA Negative Negative [facility] Blood, UA Negative Negative [facility] Nitrite, UA Negative Negative [facility] Leukocytes, UA Negative Negative [facility] Urobilinogen, UA <1.0 0.2 - 1.0 mg/dL [facility] RBC, UA 1 /HPF [facility] WBC, UA 1 /HPF [facility] Bacteria, UA Rare [facility] Mucus Rare [facility] Squam Epithel, UA <1 /HPF [facility] Hyaline Casts, UA 4 /LPF [facility] Specimen Source [facility] Specimen Urine - Urine, Straight Catheter Performing Organization Address [facility] Phone Number [facility] [address] [place] [address] [phone] Urine culture (05/23/2018 3:47 PM CDT) Result No growth [facility] Specimen Urine - Urine, Straight Catheter Performing Organization Address [facility] Phone Number [facility] [address] [place] [address] Prothrombin time/INR (05/23/2018 3:40 PM CDT)Only the most recent of4 resultswithin the time period is included. Protime 16.1 (H) 11.8 - 14.4 seconds [facility] INR 1.3 1.2 - 1.5 [facility] Specimen Blood - Arm, Right Narrative Performed At [facility] RECOMMENDED COUMADIN/WARFARIN INR THERAPY RANGES STANDARD DOSE: 2.0 - 3.0 Includes: PROPHYLAXIS for venous thrombosis, systemic embolization; TREATMENT for venous thrombosis and/or pulmonary embolus. HIGH RISK: Target INR is 2.5-3.5 for patients with mechanical heart valves. Performing Organization Address [facility] Phone Number [facility] [address] [place] [address] Blood culture (05/23/2018 3:39 PM CDT)Only the most recent of4 resultswithin the time period is included. Result No growth in 5 days [facility] Specimen Blood - Arm, Right Performing Organization Address [facility] Phone Number [facility] [address] [place] [address] Lactic acid, venous, whole blood (05/23/2018 3:38 PM CDT)Only the most recent of2 resultswithin the time period is included. Lactate, Venous 2.0Comment: Specimen moderately 0.5 - 2.2 mmol/L [facility] hemolyzed Specimen Blood - Line, Venous Narrative Performed At [facility] Effective 12/07/2015: Units/Reference Range Change New: 0.5-2.2 mmol/LPrevious: 5-20 mg/dL Performing Organization Address [facility] Number [facility] [address] [place] [address] [phone] Lipase (05/23/2018 3:38 PM CDT)Only the most recent of2 resultswithin the time period is included. Lipase 82 (H) 8 - 78 U/L [facility] Specimen Blood - Line, Venous Performing Organization Address [facility] Phone Number [facility] [address] [place] [address] RHYTHM STRIP - SCAN (02/18/2018 10:30 AM CDT) Narrative Performed At POC-Glucose meter (02/15/2018 11:14 AM CDT)Only the most recent of17 resultswithin the time period is included. POC-Glucose Meter 119 (H)Comment: TESTED AT 70 - 110 mg/dL [facility] [address] [place] [address] Specimen Blood Performing Organization Address City/[facility]/Zipcode Phone Number [address] [address] [phone] CENTER CBC (Hemogram only) (02/15/2018 5:05 AM CDT)Only the most recent of3 resultswithin the time period is included. WBC 5.1 3.5 - 10.5 K/L [facility] RBC 2.79 (L) 3.93 - 5.22 M/L [facility] Hemoglobin 8.8 (L) 11.2 - 15.7 GM/DL [facility] Hematocrit 27.2 (L) 34.1 - 44.9 % [facility] MCV 97.5 (H) 79.4 - 94.8 fL [facility] MCH 31.5 25.6 - 32.2 pg [facility] MCHC 32.4 32.2 - 35.5 GM/DL [facility] RDW 18.8 (H) 11.7 - 14.4 % [facility] Platelets 86 (L) 150 - 450 K/CU MM [facility] MPV 12.6 (H) 9.4 - 12.3 fL [facility] nRBC 0 0 - 0 /100 WBC [facility] Specimen Blood Performing Organization Address City/State/Zipcode Phone Number [address] [address] [phone] CENTER Phosphorus (02/15/2018 5:05 AM CDT)Only the most recent of6 resultswithin the time period is included. Phosphorus 3.5 2.3 - 4.7 mg/dL [facility] Specimen Blood Performing Organization Address City/[facility] Phone Number [facility] [address] [place] [address] [phone] [place] Hepatic function panel (02/15/2018 5:05 AM CDT)Only the most recent of5 resultswithin the time period is included. Protein, Total 6.3 6.0 - 8.3 gm/dL [facility] Albumin 3.9 3.5 - 5.0 g/dL [facility] Total Bilirubin 1.7 (H) 0.2 - 1.2 mg/dL [facility] Bilirubin, Direct 1.0 (H) 0.1 - 0.5 mg/dL [facility] Alkaline Phosphatase 126 40 - 150 U/L [facility] AST 118 (H) 5 - 34 U/L [facility] ALT 56 (H) 6 - 55 U/L [facility] Specimen Blood Performing Organization Address City/[facility] Phone Number [address] [address] [phone] [place] aPTT (02/14/2018 3:12 PM CDT)Only the most recent of2 resultswithin the time period is included. PTT 28.9 22.5 - 36.0 seconds [facility] Specimen Blood - Central Venous Line Performing Organization Address City/[facility] Phone Number [facility] [address] [place] [address] [phone] CENTER Prepare RBC (02/12/2018 11:54 PM CDT) CROSSMATCH COMPATIBLE SAFETRACE TX Unit ABO O Pos SAFETRACE TX UNIT NUMBER [id number] [place] [place] Status RETURNED FROM ISSUE SAFETRACE TX Blood Bank Product RED BLOOD CELLS SAFETRACE TX PRODUCT CODE [id number] SAFETRACE TX CROSSMATCH COMPATIBLE SAFETRACE TX Unit ABO O Pos SAFETRACE TX UNIT NUMBER [id number] [facility]AFET[facility]ACE TX Status TRANSFUSED SAFETRACE TX Blood Bank Product RED BLOOD CELLS [place]ET[place] TX PRODUCT CODE [id number] SAFETRACE TX Performing Organization Address [facility] Phone Number SAFETRACE TX HIV-1 Antigen with HIV-1/2 Antibody (02/12/2018 5:29 AM CDT) HIV-1 Antigen with HIV 1&2 NON-REACTIVE Nonreactive [facility] Antibody [facility] Specimen Blood Performing Organization Address [facility] Phone Number [facility] [address] [place] [address] [phone] CENTER PT/aPTT (02/11/2018 3:47 PM CDT)Only the most recent of2 resultswithin the time period is included. Protime 18.7 (H) 11.7 - 14.7 seconds [facility] INR 1.6 <=5.9 [facility] PTT 36.5 (H) 22.5 - 36.0 seconds [facility] Specimen Blood Narrative Performed At [facility] RECOMMENDED COUMADIN/WARFARIN INR THERAPY RANGES STANDARD DOSE: 2.0 - 3.0 Includes: PROPHYLAXIS for venous thrombosis, systemic embolization; TREATMENT for venous thrombosis and/or pulmonary embolus. HIGH RISK: Target INR is 2.5-3.5 for patients with mechanical heart valves. Performing Organization Address [facility] Phone Number [address] [phone] CENTER Tissue Exam (02/11/2018 1:38 PM CDT) Case Report Surgical Pathology Report Case: [id number] [facility] Authorizing Provider:Tamera Mayorga MD Collected: 02/11/2018 1338 [facility] Ordering Location: [place] [address] ICUReceived: 02/11/2018 1613 Pathologist: Herminia Hope MD Specimen:Hernia Sac, Umbilical DIAGNOSIS SKIN AND HERNIA SAC, EXCISION: [facility] - SKIN WITH ULCER, NECROSIS, HERNIA WITH FIBROSIS, ADHESION AND CHRONIC INFLAMMATION [facility] Signing Pathologist Direct Phone Line: [phone] CPT Code(s) 35374 [facility] CLINICAL HISTORY Incarcerated umbilical [facility] hernia [facility] SPECIMEN SOURCE Hernia sac umbilical [facility] GROSS DESCRIPTION The specimen is received in [facility] a formalin-filled container [facility] labeled with the patient's information and labeled "umbilical hernial sac" and consists of hemorrhagic membranous tissue measuring 6 x 3 x 0.2 cm with overlying brown skin measuring 5.5 x 3 x 0.3 cm, submitted in A1 and A2. There are no areas of suspicion. CG/ew MICROSCOPIC DESCRIPTION Performed [facility] Specimen Tissue - Hernia Sac, Umbilical Performing Organization Address [facility] Phone Number [address] [address] [phone] CENTER AFB culture + smear (02/11/2018 1:34 PM CDT) Result No acid-fast bacilli isolated in [facility] 42 days CENTER AFB Smear No acid fast bacilli seen [facility] Specimen Wound - Abdomen Performing Organization Address [facility] Phone Number [address] [address] [place] Anaerobic culture (02/11/2018 1:34 PM CDT) Result No anaerobes isolated [facility] Specimen Wound - Abdomen Performing Organization Address [facility] Phone Number [address] [address] CENTER Surgically obtained culture + gram stain (02/11/2018 1:34 PM CDT) Result No growth [facility] Gram Stain Result <1+ WBCs [facility] Gram Stain Result No organisms seen [facility] Specimen Wound - Abdomen Performing Organization Address [facility]/State/[facility] Phone Number [address] [address] [phone] [place] Fungus culture + smear (02/11/2018 1:34 PM CDT) Result No fungus isolated in 28 days [facility] Fungus Smear No fungi seen [facility] Specimen Wound - Abdomen Performing Organization Address [facility] Phone Number [address] [address] [place] SPIN/CONCENTRATION CHARGE (02/11/2018 1:34 PM CDT) Concentration charged Done [facility] Specimen Wound - Abdomen Performing Organization Address [facility] Number [address] [address] [phone] [place] Potassium-Stat Lab (02/11/2018 1:21 PM CDT) Potassium 3.9 3.6 - 5.5 meq/L [facility] Specimen Other Narrative Performed At THIS IS A VENOUS SAMPLE [facility] THIS IS A VENOUS SAMPLE THIS IS A VENOUS SAMPLE Performing Organization Address [facility] Number [address] [address] [place] Sodium Na-Stat Lab (02/11/2018 1:21 PM CDT) Sodium 135 135 - 148 meq/L [facility] Specimen Other Narrative Performed At THIS IS A VENOUS SAMPLE [facility] THIS IS A VENOUS SAMPLE THIS IS A VENOUS SAMPLE Performing Organization Address [facility] Phone Number [address] [address] [phone] [place] Glucose-Stat Lab (02/11/2018 1:21 PM CDT) Glucose 122 (H) 70 - 110 mg/dL [facility] Specimen Other Narrative Performed At THIS IS A VENOUS SAMPLE [facility] THIS IS A VENOUS SAMPLE THIS IS A VENOUS SAMPLE Performing Organization Address City/[facility]/Zipcode Phone Number [address] [address] [phone] [place] HGB/HCT (H&H)-Stat Lab (02/11/2018 1:21 PM CDT) Hemoglobin 8.7 (L) 12.0 - 15.0 g/dL [facility] Hematocrit 26.0 (L) 36.0 - 45.0 % [facility] Specimen Other Narrative Performed At THIS IS A VENOUS SAMPLE [facility] Performing Organization Address [facility] Phone Number [address] [address] [phone] [place] Calcium, Ionized (02/11/2018 1:21 PM CDT) Calcium, Ion 1.07 (L) 1.12 - 1.27 mmol/L [facility] pH, Blood 7.28 [facility] Specimen Blood Performing Organization Address City/[facility] Phone Number [address] [address] [place] US abdomen complete (02/11/2018 6:57 AM CDT) Narrative Performed At FINAL REPORT [email or web address] Abdominal Ultrasound Clinical Diagnosis: Ascites acute renal [...] MD Report Verified Date/Time:02/11/2018 09:32:36 Reading Location: [address] Ultrasound Reading Room Procedure Note Interface, [...] Report Verified Date/Time: 02/11/2018 09:32:36 Reading Location: [facility] [id number] Ultrasound Reading Room Performing Organization Address City/State/Zipcode Phone Number [email or web address] CT abdomen/pelvis without iv contrast (02/11/2018 12:01 AM CDT) Narrative Performed At FINAL REPORT [email or web address] HISTORY : Hernia, complicated Technique: Multiple axial [...] MD Report Verified Date/Time:02/11/2018 07:50:19 Reading Location: [facility] Diagnostic Imaging Reading Room - [place] [address] Procedure Note Interface, External Ris In - [...] Report Verified Date/Time: 02/11/2018 07:50:19 Reading Location: [facility] Diagnostic Imaging Reading Room - [place] [address] Performing Organization Address City/[facility]/Zipcode Phone Number [facility] Protein, random urine (02/10/2018 6:15 PM CDT) Protein, Urine 19 (H) 0 - 14 mg/dL [facility] Specimen Urine - Urine, Voided Performing Organization Address [facility] Phone Number [address] [address] [place] Screen, urine (02/10/2018 6:14 PM CDT) Preg Test, Ur Negative [facility] Specimen Urine - Urine, Voided Performing Organization Address [facility] Phone Number [address] [address] CENTER REPORT OF PROCEDURE - ENDOSCOPY URL (02/10/2018 4:35 PM CDT) Narrative Performed At Urinalysis w/Microscopic + Reflex to Culture (02/10/2018 4:08 AM CDT) Color, UA Yellow [facility] Clarity, UA Hazy [facility] Specific [place], UA 1.013 1.001 - 1.035 [facility] pH, UA 6.0 5.0 - 8.0 [facility] Protein, UA 10 mg/dL (A) Negative [facility] Glucose, UA Negative Negative [facility] Ketones, UA Trace (A) Negative [facility] Bilirubin, UA Negative Negative [facility] Blood, UA Negative Negative [facility] Nitrite, UA Negative Negative [facility] Leukocytes, UA Negative Negative [facility] Urobilinogen, UA 0.2 0.2 - 1.0 mg/dL [facility] RBC, UA <1 /HPF [facility] WBC, UA 2 /HPF [facility] Bacteria, UA Rare [facility] Mucus Rare [facility] Squam Epithel, UA 8 /HPF [facility] Hyaline Casts, UA 70 /LPF [facility] Amorphous Crystals Rare [facility] Specimen Source [facility] Specimen Urine - Urine, Voided Performing Organization Address City/State/Zipcode Phone Number [facility] [address] [place] [address] [phone] [place] Rapid drug screen, urine (02/10/2018 4:08 AM CDT) Barbiturate Screen Negative Negative [facility] Benzodiazepine Screen Negative Negative [facility] Cocaine (Metab.) Screen Negative Negative [facility] Methadone Screen Negative Negative [facility] Opiate Screen Negative Negative [facility] Cannabinoid Screen Negative Negative [facility] Amph/Methamph Screen Negative Negative [facility] Phencyclidine Screen Negative Negative [facility] Oxycodone Screen Negative Negative [facility] Specimen Urine - Urine, Voided Narrative Performed At [facility] DRUGCUTOFF CONC. Cocaine 300 ng/mL Wvxdqdvxbjv17 ng/mL Cptdptfmskjwuw429 ng/mL Barbiturate 200 ng/mL Toeeajlgmdwka46 ng/mL Zzxmso118 ng/mL Methadone 300 ng/mL Amphetamine/ 1000 ng/mL Methamphetamine Oxycodone 300 ng/mL This assay provides an unconfirmed qualitative test result for the clinical management of patients in emergency situations. Chain of custody not maintained. Some ejah-swb-aysmxsp medications, as well as adulterants, may cause inaccurate results. Clinical correlation should be applied. A more comprehensive drug screen or confirmation of a detected drug may be performed upon request. Performing Organization Address [facility] Phone Number [address] [address] [phone] [place] Blood gas, venous (02/10/2018 2:00 AM CDT) pH, Ortiz 7.42 7.32 - 7.42 [facility] pCO2, Ortiz 28 (L) 41 - 51 mmHg [facility] pO2, Ortiz 34 25 - 40 mmHg [facility] O2 Sat, Ortiz 67.6 40.0 - 70.0 % [facility] HCO3, Ortiz 17 (L) 21 - 29 mmol/L [facility] Base Excess, Ortiz -6.2 (L) -2.0 - 3.0 mmol/L [facility] Patient Temperature 37.0 C [facility] Specimen Blood - Central Venous Line Performing Organization Address [facility] Phone Number [address] [address] [place] Troponin I (02/10/2018 1:54 AM CDT) Troponin I <0.01 0.00 - 0.03 ng/mL [facility] Specimen Blood Narrative Performed At [facility] Troponin I (TnI) levels must [...] disease, and persistent tachyarrhythmia. Performing Organization Address [facility] Phone Number [address] [address] C[place] Fibrinogen (02/10/2018 1:54 AM CDT) Fibrinogen 372 225 - 434 mg/dl [facility] Specimen Blood Performing Organization Address [facility] Phone Number [address] [address] [place] Creatine Kinase (CK), Total and MB (02/10/2018 1:54 AM CDT) Total CK 30 29 - 200 U/L [facility] CK-MB 0.4 0.0 - 6.6 ng/mL [facility] MB Relative Index 1.3 % [facility] Specimen Blood Narrative Performed At CK-MB Reference Range: [facility] <6.7Normal 6.7-10.0Borderline >10.0 Abnormal Performing Organization Address [facility] Phone Number [address] [address] [place] Ethanol (02/10/2018 1:54 AM CDT) Ethanol Lvl <10 <=10 mg/dL [facility] Specimen Blood Performing Organization Address [facility] Phone Number [address] [address] [place] Hepatitis A antibody, IgG (11/27/2017 1:34 PM CDT) Hep A IgG Nonreactive Nonreactive [facility] Specimen Blood Performing Organization Address [facility] Phone Number [address] [address] [phone] [place] Mitochondrial Antibodies, M2 (11/27/2017 1:34 PM CDT) Mitochondria M2 Ab <20.0 See Note: U [facility] Comment: Reference Range: NEGATIVE:< OR=20.0 EQUIVOCAL: 20.1-24.9 POSITIVE:> OR=25.0 Specimen Blood Narrative Performed At Performing Lab [facility] [address] [place] [address] Lizette Cason MD, PhD, ABIMBOLA Performing Organization Address City/[facility] Phone Number [place] [phone] [place] [address] Iron, TIBC, % sat. (without ferritin) (11/27/2017 1:34 PM CDT) Iron 37 (L) 40 - 160 ug/dL [facility] TIBC 219 (L) 250 - 450 ug/dL [facility] Iron % Saturation 17 (L) 20 - 55 % [facility] Specimen Blood Performing Organization Address [facility] Phone Number [address] [phone] [place] Hepatitis C antibody (11/27/2017 1:34 PM CDT) Hepatitis C Ab NON-REACTIVE Nonreactive [facility] Specimen Blood Performing Organization Address [facility] Phone Number [address] [phone] [place] Actin (Smooth Muscle) Antibody, IgG (11/27/2017 1:34 [...] Specimen Blood Narrative Performed At Performing Lab [facility] [place] [address] [place] [address] Lizette Cason MD, PhD, ABIMBOLA Performing Organization Address City/[facility] Phone Number [place] [address] [facility] [address] [facility] Uppkb-0-Pgemwtdbmev (11/27/2017 1:34 PM CDT) A-1 Antitrypsin 151.80 90.00 - 200.00 mg/dL [facility] Specimen Blood Performing Organization Address City/State/Zipcode Phone Number [address] [address] [phone] CENTER [place] Titer & Pattern (11/27/2017 1:34 PM CDT) [place] Titer 1:40 [facility] [place] Pattern Speckled [facility] Specimen Blood Performing Organization Address City/State/Zipcode Phone Number [address] [address] C[place] Ceruloplasmin (11/27/2017 1:34 PM CDT) Ceruloplasmin 25 18 - 53 mg/dL [facility] Comment: Adults:Males: 18-36 mg/dL Females: 18-53 mg/dL Pediatrics:Males (mg/dL)Females (mg/dL) 0-30 Days 8-25 3-28 31 Days-11 Month 15-43 1-3 Gezlk45-2220-83 4-6 Ngfze92-4394-49 7-9 Yyewu97-9737-85 10-12 Wulcx34-3335-66 13-15 Nfmle00-6625-42 16-18 Jiupu70-1700-88 The pediatric ranges are derived from the following criteria: Yehuda FINN, Buck MERCHANT, Lorna J et al Pediatric reference ranges for Boyn-0-Aadfezugtxmrg and ceruloplasmin. Clin. Chem 1997; 43:S1999 Pediatric Reference Ranges, 2nd., [place] Yehudaet al. editors. [employer], [place], [place] 1997. Specimen Blood Narrative Performed At Performing Lab [facility] *SPL [facility], [address] [place] [phone] Florencia Almanzar MD, PhD Performing Organization Address City/State/Zipcode Phone Number [facility], [place] [address] [facility]ATED [address] [facility] Hepatitis B core antibody, total (11/27/2017 1:34 PM CDT) Hep B Core Total Ab NON-REACTIVE Nonreactive [facility] Specimen Blood Performing Organization Address City/[facility] Phone Number [address] [address] C[place] Hepatitis B surface antibody (11/27/2017 1:34 PM CDT) Hep B S Ab <8.0 <8.0 mIU/mL [facility] Specimen Blood Performing Organization Address [facility] Phone Number [address] [phone] [place] Hepatitis B surface antigen (11/27/2017 1:34 PM CDT) hepatitis B Surface Ag NON-REACTIVE Nonreactive [facility] Specimen Blood Performing Organization Address [facility] Phone Number [address] [address] [phone] CENTER Anti-Nuclear Antibody (LÓPEZ) (11/27/2017 1:34 PM CDT) [place] Positive (A) Negative [facility] Specimen Blood Performing Organization Address [facility]/Zipcode Phone Number [address] [address] C[place] Ferritin (11/27/2017 1:34 PM CDT) Ferritin 237 5 - 275 ng/mL [facility] Specimen Blood Performing Organization Address [facility]/Zipcode Phone Number [address] [address] CENTER Bilirubin, direct (11/27/2017 1:34 PM CDT) Bilirubin, Direct 0.6 (H) 0.1 - 0.5 mg/dL [facility] Specimen Blood Performing Organization Address City/State/Zipcode Phone Number [facility] [address] [place] [address] CENTER after 09/22/2017 Insurance Payer Benefit Plan / Group Subscriber ID Type Phone Address GARCIA MEDICAID MEDICAID GARCIA xxxxxxxxx Advance Directives For more information, please contact:[facility] [place], [place] [phone] Code Status Date Activated Date Inactivated Comments Full Code 05/23/2018 8:59 PM 05/27/2018 7:11 PM This code status was determined by: Patient Full Code 02/10/2018 2:37 AM 02/15/2018 7:08 PM This code status was determined by: Patient
--- OUTSIDE RECORDS SUMMARY | 2018-09-23 16:55 | XMS REPORT ---
:1970 [facility] Address [address] [place] [address] [place] [address] Care Team Providers Name Role Phone CLEVE ALCOCER Unavailable Unavailable NICK MCKENZIE Unavailable Unavailable RAMON RAIAS Unavailable Unavailable Problems This patient has no known problems. Allergies, Adverse Reactions, Alerts This patient has no known allergies or adverse reactions. Medications This patient has no known medications. Results Test Description Test Time Test Comments Text Results Atomic Results Result Comments U/S, PARACENTESIS 2018-06-02 Reason for FINAL REPORT PATIENT ID: [id number] exam:->ascitesReason for [id number] Ultrasound exam:->possible sbpShould guided paracentesis, this be performed at the 05/23/2018. Clinical bedside?->Yes History: Ascites. Sedation: None. Radio Broadcaster: Mckenzie. College Sports Assistant: None. Estimated Blood Loss: < 1 cc. [...] was achieved with 1% lidocaine, a 5 Tongan one-step catheter was advanced into the peritoneal cavity under ultrasound guidance. After completion of drainage, the catheter was removed. There was no evidence of complication. Patient Disposition: The patient was discharged from the ultrasound department after the paracentesis, in good condition. Impression:Successful ultrasound guided paracentesis. Signed: Pino Rincon Verified Date/Time: 06/02/2018 08:43:07 Reading Location: [facility] B1 P048 Angio Body Reading Room FLUID CULTURE + GRAM STAIN 2018-05-29 08:26:00 Test Item Value Reference Range Comments CULTURE (BEAKER) (test deko=5662) No growth GRAM STAIN RESULT (BEAKER) (test edph=4891) 2+ WBCs GRAM STAIN RESULT (BEAKER) (test szjt=94569) No organisms seen BLOOD [id number] 19:00:00 Test Item Value Reference Range Comments CULTURE (BEAKER) (test zybt=1691) No growth in 5 days BLOOD [id number] 19:00:00 Test Item Value Reference Range Comments CULTURE (BEAKER) (test sbws=6867) No growth in 5 days BODY FLUID CELL COUNT WITH [id number] 15:04:00 Test Item Value Reference Range Comments APPEARANCE FLUID (BEAKER) (test Hazy Clear hfos=650) COLOR FLUID (BEAKER) (test Straw Colorless, Straw ctoc=878) RBC FLUID (BEAKER) (test 1220 /uL <=1 wqax=284) ADJUSTED WBC FLUID (BEAKER) 193 /cu mm <=5 (test mooj=4023) LINING CELLS (BEAKER) (test 14 /cu mm <=1 qzhz=0694) NEUTROPHILS FLUID (BEAKER) 44 % (test zxiq=4016) LYMPHS FLUID (BEAKER) (test 26 % lcyw=886) MONO/MACROPHAGE FLUID (BEAKER) 30 % (test hrck=355) EOSINOPHILS FLUID (BEAKER) 0 % (test atvh=752) BASO FLUID (BEAKER) (test 0 % jepc=947) INTERPRETATION-210 (BEAKER) Negative for malignant (test qqdo=6122) cells. GUGU-ZBMXNBIRTNZ-328 (BEAKER) Stanislav Sofia M.D. (test kbvc=5750) (electronic signature) CONTAINER BODY FLUID (BEAKER) Sterile Cup (test qpcj=8329) BASIC METABOLIC [id number] 03:33:00 Test Item Value Reference Range Comments SODIUM (BEAKER) (test 134 meq/L 135-148 jdch=761) POTASSIUM (BEAKER) (test 3.5 meq/L 3.5-5.5 vwna=890) CHLORIDE (BEAKER) (test 107 meq/L 98-106 fsfm=969) CO2 (BEAKER) (test 15 meq/L 20-31 gegb=623) BLOOD UREA NITROGEN 22 mg/dL 10-26 (BEAKER) (test eive=836) CREATININE (BEAKER) (test 1.51 mg/dL 0.50-1.20 fzgf=232) GLUCOSE RANDOM (BEAKER) 105 mg/dL 70-110 (test lrng=712) CALCIUM (BEAKER) (test 9.7 mg/dL 8.5-10.5 yskp=299) EGFR (BEAKER) (test 37 mL/min/1.73 sq m ESTIMATED GFR IS NOT qmov=2524) ACCURATE CREATININE CLEARANCE IN PREDICTING GLOMERULAR FILTRATION RATE. ESTIMATED GFR IS NOT APPLICABLE FOR DIALYSIS PATIENTS. Specimen slightly ictericU/S, [id number] 16:05:00Reason for exam:-& gt;ascites, please only remove about 3L, pt with ZUNILDA too, dont want to shift fluidbalanceFINAL REPORT Ultrasound guided paracentesis , 05/26/2018. Clinical History:Ascites. Sedation: None. Radio Broadcaster: Vishnu Biggs MD College Sports Assistant: None. Estimated Blood Loss: < 1 cc. [...] achieved with 1 % lidocaine, a 5 Tongan one-step catheter was advanced into the peritoneal cavity under ultrasound guidance. After completion of drainage, the catheter was removed. There was no evidence ofcomplication. Impression:Successful ultrasound guided paracentesis. Signed: [facility] Verified Date/ Time: 05/26/2018 16:05:11 Reading Location: [facility] Radiology Reading Room COMPREHENSIVE METABOLIC [id number] 05:55:00 Test Item Value Reference Range Comments TOTAL PROTEIN (BEAKER) 7.5 gm/dL 6.0-8.5 (test hkoi=955) ALBUMIN (BEAKER) (test 3.9 g/dL 3.5-5.0 arag=3383) ALKALINE PHOSPHATASE 97 U/L 30-115 (BEAKER) (test pjrn=386) BILIRUBIN TOTAL (BEAKER) 2.3 mg/dL 0.1-1.3 (test hrve=197) SODIUM (BEAKER) (test 134 meq/L 135-148 fjhz=625) POTASSIUM (BEAKER) (test 3.7 meq/L 3.5-5.5 ymqm=730) CHLORIDE (BEAKER) (test 105 meq/L 98-106 rjhh=787) CO2 (BEAKER) (test 16 meq/L 20-31 zzkh=586) BLOOD UREA NITROGEN 25 mg/dL 10-26 (BEAKER) (test jlhs=812) CREATININE (BEAKER) (test 1.74 mg/dL 0.50-1.20 sqkp=313) GLUCOSE RANDOM (BEAKER) 116 mg/dL 70-110 (test didn=004) CALCIUM (BEAKER) (test 9.6 mg/dL 8.5-10.5 pwkc=402) AST (SGOT) (BEAKER) (test 44 U/L 5-40 xfbs=403) ALT (SGPT) (BEAKER) (test 23 U/L 6-50 ppmx=385) EGFR (BEAKER) (test 31 mL/min/1.73 sq m ESTIMATED GFR IS NOT pspo=1366) ACCURATE CREATININE CLEARANCE IN PREDICTING GLOMERULAR FILTRATION RATE. ESTIMATED GFR IS NOT APPLICABLE FOR DIALYSIS PATIENTS. [id number] 05:51:00 Test Item Value Reference Range Comments POTASSIUM (BEAKER) (test loag=945) 3.7 meq/L 3.5-5.5 [id number] 05:51:00 Test Item Value Reference Range Comments MAGNESIUM (BEAKER) (test riia=852) 2.1 mg/dL 1.5-3.0 [id number] 05:31:00 Test Item Value Reference Range Comments AMMONIA (BEAKER) (test zwmi=563) 134 mol/L 12-72 URINE [id number] 12:48:00 Test Item Value Reference Range Comments CULTURE (BEAKER) (test fvel=7514) No growth BASIC METABOLIC [id number] 04:24:00 Test Item Value Reference Range Comments SODIUM (BEAKER) (test 131 meq/L 135-148 wepq=120) POTASSIUM (BEAKER) (test 3.5 meq/L 3.5-5.5 tmid=651) CHLORIDE (BEAKER) (test 103 meq/L 98-106 fjyk=178) CO2 (BEAKER) (test 17 meq/L 20-31 mywt=277) BLOOD UREA NITROGEN 27 mg/dL 10-26 (BEAKER) (test njhs=291) CREATININE (BEAKER) (test 2.29 mg/dL 0.50-1.20 kwzx=775) GLUCOSE RANDOM (BEAKER) 93 mg/dL 70-110 (test lcyb=552) CALCIUM (BEAKER) (test 9.2 mg/dL 8.5-10.5 bngf=532) EGFR (BEAKER) (test 23 mL/min/1.73 sq m ESTIMATED GFR IS NOT yyeh=6881) ACCURATE CREATININE CLEARANCE IN PREDICTING GLOMERULAR FILTRATION RATE. ESTIMATED GFR IS NOT APPLICABLE FOR DIALYSIS PATIENTS. CBC W/PLT COUNT & AUTO [id number] 03:55:00 Test Item Value Reference Range Comments WHITE BLOOD CELL COUNT (BEAKER) 4.5 K/ L 4.0-10.0 (test asfh=077) RED BLOOD CELL COUNT (BEAKER) 3.28 M/ L 4.00-5.00 (test nniy=358) HEMOGLOBIN (BEAKER) (test 10.0 GM/DL 12.0-15.5 ftoj=698) HEMATOCRIT (BEAKER) (test 29.9 % 36.0-46.0 oqng=937) MEAN CORPUSCULAR VOLUME 91.2 fL 82.0-99.0 (BEAKER) (test bkjg=901) MEAN CORPUSCULAR HEMOGLOBIN 30.5 pg 27.0-33.0 (BEAKER) (test cngj=089) MEAN CORPUSCULAR HEMOGLOBIN 33.4 GM/DL 32.0-36.0 CONC (BEAKER) (test iczx=695) RED CELL DISTRIBUTION WIDTH 17.4 % 12.0-15.0 (BEAKER) (test nmrt=331) PLATELET COUNT (BEAKER) (test 105 K/CU MM 150-430 weyl=545) MEAN PLATELET VOLUME (BEAKER) 10.5 fL 6.0-11.5 MPV-Approximately 20% (test gwvq=635) positive bias due to method change. NUCLEATED RED BLOOD CELLS 0 /100 WBC 0-0 (BEAKER) (test deor=518) NEUTROPHILS RELATIVE PERCENT 71 % (BEAKER) (test jdor=575) LYMPHOCYTES RELATIVE PERCENT 8 % (BEAKER) (test htbv=494) MONOCYTES RELATIVE PERCENT 13 % (BEAKER) (test dgip=647) EOSINOPHILS RELATIVE PERCENT 6 % (BEAKER) (test ifrq=728) BASOPHILS RELATIVE PERCENT 1 % (BEAKER) (test zlsu=547) NEUTROPHILS ABSOLUTE COUNT 3.22 K/ L 1.80-8.00 (BEAKER) (test wtjc=306) LYMPHOCYTES ABSOLUTE COUNT 0.38 K/ L 1.48-4.50 (BEAKER) (test avwj=966) MONOCYTES ABSOLUTE COUNT 0.57 K/ L 0.00-1.30 (BEAKER) (test wktv=115) EOSINOPHILS ABSOLUTE COUNT 0.29 K/ L 0.00-0.50 (BEAKER) (test oyjc=348) BASOPHILS ABSOLUTE COUNT 0.05 K/ L 0.00-0.20 (BEAKER) (test pxwz=723) IMMATURE GRANULOCYTES-RELATIVE 0 % 0-0 PERCENT (BEAKER) (test coet=6408) HEPATITIS PANEL, [id number] 20:47:00 Test Item Value Reference Range Comments HEPATITIS A IGM ANTIBODY (BEAKER) (test Nonreactive Nonreactive qhdc=215) HEPATITIS B CORE IGM ANTIBODY (BEAKER) (test Nonreactive Nonreactive jguc=832) HEPATITIS C ANTIBODY (BEAKER) (test bcec=057) Nonreactive Nonreactive HEPATITIS B SURFACE ANTIGEN (2) (BEAKER) (test Nonreactive Nonreactive vjec=8514) ALPHA FETOPROTEIN (AFP), TUMOR [id number] 19:52:00 Test Item Value Reference Range Comments ALPHA-FETOPROTEIN (BEAKER) (test yjum=2834) 5.5 ng/mL <10.0 CREATININE, RANDOM [id number] 14:08:00 Test Item Value Reference Range Comments CREATININE URINE (BEAKER) (test tuwt=770) 42.7 mg/dL Reference Range: No NormalsSODIUM, RANDOM [id number] 14:08:00 Test Item Value Reference Range Comments SODIUM URINE (BEAKER) (test slje=239) 28 meq/L Reference Range: No NormalsOCCULT BLOOD, [id number] 13:56:00 Test Item Value Reference Range Comments FECAL OCCULT BLOOD (BEAKER) (test aoqy=893) Positive Negative U/S, RENAL, [id number] 11:53:00Reason for exam:->akiFINAL REPORT RENAL ULTRASOUND HISTORY: Acute kidney injury COMPARISON : Abdominal ultrasound 02/11/2018 TECHNIQUE: Real-time ultrasound of the kidneys was performed. FINDINGS: Thekidneys are normal in size. The right kidney measures 11.6 cm in length and the left kidney fyvfkicc45.1 cm in length. Renal cortical thickness measures [...] MDReport Verified Date/Time: 05/24/2018 11:53:08 Reading Location: [address] Reading Room BASIC METABOLIC [id number] 05:13:00 Test Item Value Reference Range Comments SODIUM (BEAKER) (test 131 meq/L 135-148 yfja=276) POTASSIUM (BEAKER) (test 2.8 meq/L 3.5-5.5 plnf=156) CHLORIDE (BEAKER) (test 101 meq/L 98-106 lslk=781) CO2 (BEAKER) (test 17 meq/L 20-31 sycd=025) BLOOD UREA NITROGEN 28 mg/dL 10-26 (BEAKER) (test wwsk=193) CREATININE (BEAKER) (test 2.85 mg/dL 0.50-1.20 fufc=757) GLUCOSE RANDOM (BEAKER) 91 mg/dL 70-110 (test hxbl=620) CALCIUM (BEAKER) (test 9.0 mg/dL 8.5-10.5 yhwd=170) EGFR (BEAKER) (test 18 mL/min/1.73 sq m ESTIMATED GFR IS NOT ytju=6955) ACCURATE CREATININE CLEARANCE IN PREDICTING GLOMERULAR FILTRATION RATE. ESTIMATED GFR IS NOT APPLICABLE FOR DIALYSIS PATIENTS. CBC W/PLT COUNT & AUTO [id number] 04:39:00 Test Item Value Reference Range Comments WHITE BLOOD CELL COUNT (BEAKER) 5.4 K/ L 4.0-10.0 (test fpdt=276) RED BLOOD CELL COUNT (BEAKER) 2.26 M/ L 4.00-5.00 (test asfh=299) HEMOGLOBIN (BEAKER) (test 7.2 GM/DL 12.0-15.5 murc=142) HEMATOCRIT (BEAKER) (test 21.3 % 36.0-46.0 jjha=973) MEAN CORPUSCULAR VOLUME 94.2 fL 82.0-99.0 (BEAKER) (test hsij=511) MEAN CORPUSCULAR HEMOGLOBIN 31.9 pg 27.0-33.0 (BEAKER) (test uyzw=024) MEAN CORPUSCULAR HEMOGLOBIN 33.8 GM/DL 32.0-36.0 CONC (BEAKER) (test afma=638) RED CELL DISTRIBUTION WIDTH 17.1 % 12.0-15.0 (BEAKER) (test caah=878) PLATELET COUNT (BEAKER) (test 98 K/CU MM 150-430 pnbf=599) MEAN PLATELET VOLUME (BEAKER) 10.4 fL 6.0-11.5 MPV-Approximately 20% (test njqe=584) positive bias due to method change. NUCLEATED RED BLOOD CELLS 0 /100 WBC 0-0 (BEAKER) (test thbl=756) NEUTROPHILS RELATIVE PERCENT 77 % (BEAKER) (test vynh=394) LYMPHOCYTES RELATIVE PERCENT 7 % (BEAKER) (test vkfa=225) MONOCYTES RELATIVE PERCENT 10 % (BEAKER) (test cgod=135) EOSINOPHILS RELATIVE PERCENT 5 % (BEAKER) (test utjf=117) BASOPHILS RELATIVE PERCENT 1 % (BEAKER) (test vono=639) NEUTROPHILS ABSOLUTE COUNT 4.15 K/ L 1.80-8.00 (BEAKER) (test larj=367) LYMPHOCYTES ABSOLUTE COUNT 0.35 K/ L 1.48-4.50 (BEAKER) (test neif=463) MONOCYTES ABSOLUTE COUNT 0.55 K/ L 0.00-1.30 (BEAKER) (test ajqc=990) EOSINOPHILS ABSOLUTE COUNT 0.27 K/ L 0.00-0.50 (BEAKER) (test vphh=907) BASOPHILS ABSOLUTE COUNT 0.04 K/ L 0.00-0.20 (BEAKER) (test zjpc=840) IMMATURE GRANULOCYTES-RELATIVE 0 % 0-0 PERCENT (BEAKER) (test ftcm=9209) BASIC METABOLIC [id number] 19:11:00 Test Item Value Reference Range Comments SODIUM (BEAKER) (test 130 meq/L 135-148 ggli=681) POTASSIUM (BEAKER) (test 3.8 meq/L 3.5-5.5 Specimen slightly qtml=205) hemolyzed CHLORIDE (BEAKER) (test 100 meq/L 98-106 kbjw=282) CO2 (BEAKER) (test 17 meq/L 20-31 rrru=791) BLOOD UREA NITROGEN 27 mg/dL 10-26 (BEAKER) (test wmyk=209) CREATININE (BEAKER) (test 2.86 mg/dL 0.50-1.20 Specimen slightly ictl=103) hemolyzed GLUCOSE RANDOM (BEAKER) 97 mg/dL 70-110 (test juxd=022) CALCIUM (BEAKER) (test 8.8 mg/dL 8.5-10.5 lwgk=091) EGFR (BEAKER) (test 18 mL/min/1.73 sq m ESTIMATED GFR IS NOT xrlh=9698) ACCURATE CREATININE CLEARANCE IN PREDICTING GLOMERULAR FILTRATION RATE. ESTIMATED GFR IS NOT APPLICABLE FOR DIALYSIS PATIENTS. CT, BRAIN, WITHOUT [id number] 17:56:00Reason for exam:->ALTERED MENTAL STATUSReason for exam:->BLOATEDReason [...] Silver Verified Date/Time: 05/23/2018 17:56:33 Reading Location: [facility] Radiology Reading Room COMPREHENSIVE METABOLIC [id number] 16:54:00 Test Item Value Reference Range Comments TOTAL PROTEIN (BEAKER) 7.2 gm/dL 6.0-8.5 Specimen slightly (test tfxl=801) hemolyzed ALBUMIN (BEAKER) (test 3.5 g/dL 3.5-5.0 Specimen slightly rbts=1172) hemolyzed ALKALINE PHOSPHATASE 122 U/L 30-115 (BEAKER) (test uwaj=970) BILIRUBIN TOTAL (BEAKER) 1.5 mg/dL 0.1-1.3 Specimen slightly (test bmzv=072) hemolyzed SODIUM (BEAKER) (test 131 meq/L 135-148 wcar=697) POTASSIUM (BEAKER) (test 2.9 meq/L 3.5-5.5 Specimen slightly stje=395) hemolyzed CHLORIDE (BEAKER) (test 101 meq/L 98-106 moqh=594) CO2 (BEAKER) (test 16 meq/L 20-31 lcyi=914) BLOOD UREA NITROGEN 27 mg/dL 10-26 (BEAKER) (test cclx=033) CREATININE (BEAKER) (test 2.98 mg/dL 0.50-1.20 Specimen slightly wznw=008) hemolyzed GLUCOSE RANDOM (BEAKER) 99 mg/dL 70-110 (test dbyk=528) CALCIUM (BEAKER) (test 8.9 mg/dL 8.5-10.5 dmuk=023) AST (SGOT) (BEAKER) (test 53 U/L 5-40 Specimen slightly jiwq=726) hemolyzed ALT (SGPT) (BEAKER) (test 23 U/L 6-50 Specimen slightly nvth=628) hemolyzed EGFR (BEAKER) (test 17 mL/min/1.73 sq m ESTIMATED GFR IS NOT tenh=3352) ACCURATE CREATININE CLEARANCE IN PREDICTING GLOMERULAR FILTRATION RATE. ESTIMATED GFR IS NOT APPLICABLE FOR DIALYSIS PATIENTS. [id number] 16:38:00 Test Item Value Reference Range Comments LIPASE (BEAKER) (test mmcn=969) 82 U/L 8-78 PROTHROMBIN [id number] 16:28:00 Test Item Value Reference Range Comments PROTIME (BEAKER) (test ktfc=653) 16.1 seconds 11.8-14.4 INR (BEAKER) (test xsli=228) 1.3 1.2-1.5 RECOMMENDED COUMADIN/WARFARIN INR THERAPY RANGESSTANDARD DOSE: 2.0 - 3.0 Includes: PROPHYLAXIS forvenous thrombosis, systemic embolization; TREATMENT for venous thrombosis and/or pulmonary embolus.HIGH RISK: Target INR is 2.5-3.5 for patients with mechanical heart valves.CBC W/PLT COUNT & AUTO [id number] 16:26:00 Test Item Value Reference Range Comments WHITE BLOOD CELL COUNT (BEAKER) 7.1 K/ L 4.0-10.0 (test rqeg=641) RED BLOOD CELL COUNT (BEAKER) 2.50 M/ L 4.00-5.00 (test dcnq=351) HEMOGLOBIN (BEAKER) (test 8.0 GM/DL 12.0-15.5 ogbr=526) HEMATOCRIT (BEAKER) (test 24.1 % 36.0-46.0 mlzb=501) MEAN CORPUSCULAR VOLUME 96.4 fL 82.0-99.0 (BEAKER) (test erlj=430) MEAN CORPUSCULAR HEMOGLOBIN 32.0 pg 27.0-33.0 (BEAKER) (test bjfn=040) MEAN CORPUSCULAR HEMOGLOBIN 33.2 GM/DL 32.0-36.0 CONC (BEAKER) (test unly=537) RED CELL DISTRIBUTION WIDTH 17.3 % 12.0-15.0 (BEAKER) (test bxji=064) PLATELET COUNT (BEAKER) (test 115 K/CU MM 150-430 czsf=487) MEAN PLATELET VOLUME (BEAKER) 11.3 fL 6.0-11.5 MPV-Approximately 20% (test jtbf=515) positive bias due to method change. NUCLEATED RED BLOOD CELLS 0 /100 WBC 0-0 (BEAKER) (test zrhi=260) NEUTROPHILS RELATIVE PERCENT 90 % (BEAKER) (test rbsl=195) LYMPHOCYTES RELATIVE PERCENT 4 % (BEAKER) (test tonc=456) MONOCYTES RELATIVE PERCENT 4 % (BEAKER) (test kqoo=894) EOSINOPHILS RELATIVE PERCENT 1 % (BEAKER) (test jvbs=001) BASOPHILS RELATIVE PERCENT 1 % (BEAKER) (test nvkp=841) NEUTROPHILS ABSOLUTE COUNT 6.34 K/ L 1.80-8.00 (BEAKER) (test izqo=280) LYMPHOCYTES ABSOLUTE COUNT 0.25 K/ L 1.48-4.50 (BEAKER) (test kudf=229) MONOCYTES ABSOLUTE COUNT 0.30 K/ L 0.00-1.30 (BEAKER) (test vpvo=064) EOSINOPHILS ABSOLUTE COUNT 0.10 K/ L 0.00-0.50 (BEAKER) (test qdnk=179) BASOPHILS ABSOLUTE COUNT 0.04 K/ L 0.00-0.20 (BEAKER) (test fuzo=491) IMMATURE GRANULOCYTES-RELATIVE 0 % 0-0 PERCENT (BEAKER) (test hkgm=6651) RAD, CHEST, 1 VIEW, NON [id number] 16:22:00Reason for exam:->altered mental statusShould this be performed at the bedside?->YesIs the patient ?->NoFINAL REPORT CHEST AP PORTABLE History provided: Altered mental status Heart size normal. Lungs clear and vascularity normal. IMPRESSION: Clear chest. Signed: Gonzalo Serrano MDReport Verified Date/ Time: 05/23/2018 16:22:47 Reading Location: [facility] Radiology Reading Room URINALYSIS W/ [id number] 16:19:00 Test Item Value Reference Range Comments COLOR (BEAKER) (test rwuq=952) Yellow CLARITY (BEAKER) (test muka=356) Hazy SPECIFIC GRAVITY UA (BEAKER) (test ecar=745) 1.016 1.001-1.035 PH UA (BEAKER) (test ejim=427) 5.0 5.0-8.0 PROTEIN UA (BEAKER) (test mufm=093) Negative Negative GLUCOSE UA (BEAKER) (test cilu=727) Negative Negative KETONES UA (BEAKER) (test grou=560) Negative Negative BILIRUBIN UA (BEAKER) (test tcio=427) Negative Negative BLOOD UA (BEAKER) (test wjvu=430) Negative Negative NITRITE UA (BEAKER) (test cius=369) Negative Negative LEUKOCYTE ESTERASE UA (BEAKER) (test czji=641) Negative Negative UROBILINOGEN UA (BEAKER) (test piab=655) < mg/dL 0.2-1.0 RBC UA (BEAKER) (test affv=967) 1 /HPF WBC UA (BEAKER) (test ntxi=347) 1 /HPF BACTERIA (BEAKER) (test itbh=227) Rare MUCUS (BEAKER) (test pzdx=9824) Rare SQUAMOUS EPITHELIAL (BEAKER) (test alsd=080) < /HPF HYALINE CASTS (BEAKER) (test hida=479) 4 /LPF SOURCE(BEAKER) (test mgkt=3038) LACTIC ACID, VENOUS, WHOLE [id number] 16:12:00 Test Item Value Reference Range Comments LACTATE BLOOD VENOUS (2) 2.0 mmol/L 0.5-2.2 Specimen moderately hemolyzed (BEAKER) (test kqsv=0793) Effective 12/07/2015: Units/Reference Range ChangeNew: 0.5-2.2 mmol/L Previous: 5 -20 mg/[id number] 16:07:00 Test Item Value Reference Range Comments AMMONIA (BEAKER) (test 90 mol/L 12-72 Specimen moderately hemolyzed licd=579) AFB CULTURE + [id number] 00:02:00 Test Item Value Reference Range Comments CULTURE (BEAKER) (test No acid-fast bacilli isolated clmh=7451) in 42 days AFB SMEAR (BEAKER) (test No acid fast bacilli seen fadg=357) FUNGUS CULTURE + [id number] 12:57:00 Test Item Value Reference Range Comments CULTURE (BEAKER) (test No fungus isolated in 28 days aigp=5706) FUNGUS SMEAR (BEAKER) (test No fungi seen yxgg=6140) BODY FLUID CULTURE + GRAM [id number] 05:31:00 Test Item Value Reference Range Comments CULTURE (BEAKER) (test ccms=9287) No growth GRAM STAIN RESULT (BEAKER) (test <1+ WBCs ujwj=9621) GRAM STAIN RESULT (BEAKER) (test No organisms seen yxtw=38224) ANAEROBIC [id number] 02:42:00 Test Item Value Reference Range Comments CULTURE (BEAKER) (test untx=5166) No anaerobes isolated POCT-GLUCOSE [id number] 13:58:00 Test Item Value Reference Range Comments POC-GLUCOSE METER (BEAKER) 119 mg/dL 70-[address] [facility] [address] [facility] (test ogrp=0139) [facility] [address] CBC W/PLT COUNT & AUTO [id number] 09:22:00 Test Item Value Reference Range Comments WHITE BLOOD CELL COUNT (BEAKER) (test sxcw=679) 5.1 K/ L 3.5-10.5 RED BLOOD CELL COUNT (BEAKER) (test tado=895) 2.79 M/ L 3.93-5.22 HEMOGLOBIN (BEAKER) (test bufi=401) 8.8 GM/DL 11.2-15.7 HEMATOCRIT (BEAKER) (test uxql=709) 27.2 % 34.1-44.9 MEAN CORPUSCULAR VOLUME (BEAKER) (test nfms=055) 97.5 fL 79.4-94.8 MEAN CORPUSCULAR HEMOGLOBIN (BEAKER) (test 31.5 pg 25.6-32.2 djox=675) MEAN CORPUSCULAR HEMOGLOBIN CONC (BEAKER) (test 32.4 GM/DL 32.2-35.5 bkqr=133) RED CELL DISTRIBUTION WIDTH (BEAKER) (test 18.8 % 11.7-14.4 fhjq=949) PLATELET COUNT (BEAKER) (test exib=418) 86 K/CU MM 150-450 MEAN PLATELET VOLUME (BEAKER) (test pizz=908) 12.6 fL 9.4-12.3 NUCLEATED RED BLOOD CELLS (BEAKER) (test 0 /100 WBC 0-0 jern=603) NEUTROPHILS RELATIVE PERCENT (BEAKER) (test 73 % qmww=726) LYMPHOCYTES RELATIVE PERCENT (BEAKER) (test 7 % xefu=744) MONOCYTES RELATIVE PERCENT (BEAKER) (test 12 % bihx=720) EOSINOPHILS RELATIVE PERCENT (BEAKER) (test 6 % nytr=402) BASOPHILS RELATIVE PERCENT (BEAKER) (test 1 % ddgy=589) NEUTROPHILS ABSOLUTE COUNT (BEAKER) (test 3.63 K/ L 1.56-6.13 bexk=674) LYMPHOCYTES ABSOLUTE COUNT (BEAKER) (test 0.36 K/ L 1.18-3.74 yehf=559) MONOCYTES ABSOLUTE COUNT (BEAKER) (test xdry=233) 0.61 K/ L 0.24-0.36 EOSINOPHILS ABSOLUTE COUNT (BEAKER) (test 0.31 K/ L 0.04-0.36 zfmv=691) BASOPHILS ABSOLUTE COUNT (BEAKER) (test wzzq=086) 0.06 K/ L 0.01-0.08 IMMATURE GRANULOCYTES-RELATIVE PERCENT (BEAKER) 0 % 0-1 (test yohv=7889) CBC (HEMOGRAM ONLY)2018-02-15 09:16:00 Test Item Value Reference Range Comments WHITE BLOOD CELL COUNT (BEAKER) (test txjm=773) 5.1 K/ L 3.5-10.5 RED BLOOD CELL COUNT (BEAKER) (test lsvw=456) 2.79 M/ L 3.93-5.22 HEMOGLOBIN (BEAKER) (test jbnn=387) 8.8 GM/DL 11.2-15.7 HEMATOCRIT (BEAKER) (test dtep=805) 27.2 % 34.1-44.9 MEAN CORPUSCULAR VOLUME (BEAKER) (test cutb=574) 97.5 fL 79.4-94.8 MEAN CORPUSCULAR HEMOGLOBIN (BEAKER) (test 31.5 pg 25.6-32.2 sutx=178) MEAN CORPUSCULAR HEMOGLOBIN CONC (BEAKER) (test 32.4 GM/DL 32.2-35.5 wnic=122) RED CELL DISTRIBUTION WIDTH (BEAKER) (test 18.8 % 11.7-14.4 gipw=997) PLATELET COUNT (BEAKER) (test qiii=114) 86 K/CU MM 150-450 MEAN PLATELET VOLUME (BEAKER) (test dwiw=402) 12.6 fL 9.4-12.3 NUCLEATED RED BLOOD CELLS (BEAKER) (test 0 /100 WBC 0-0 xgcj=151) POCT-GLUCOSE [id number] 08:54:00 Test Item Value Reference Range Comments POC-GLUCOSE METER (BEAKER) 135 mg/dL 70-[address] [facility] [address] [facility] (test ursh=6166) [facility] [address] [id number] 06:41:00 Test Item Value Reference Range Comments PHOSPHORUS (BEAKER) (test nagz=197) 3.5 mg/dL 2.3-4.7 [id number] 06:41:00 Test Item Value Reference Range Comments MAGNESIUM (BEAKER) (test sgju=699) 1.7 mg/dL 1.6-2.6 BASIC METABOLIC [id number] 06:41:00 Test Item Value Reference Range Comments SODIUM (BEAKER) (test 136 meq/L 136-145 iybk=989) POTASSIUM (BEAKER) (test 3.2 meq/L 3.5-5.1 bgup=512) CHLORIDE (BEAKER) (test 112 meq/L 98-107 rvuc=207) CO2 (BEAKER) (test 14 meq/L 22-29 rdyo=086) BLOOD UREA NITROGEN 14 mg/dL 7-21 (BEAKER) (test ieac=633) CREATININE (BEAKER) (test 0.71 mg/dL 0.57-1.25 ozbb=158) GLUCOSE RANDOM (BEAKER) 92 mg/dL 70-105 (test buzl=939) CALCIUM (BEAKER) (test 8.9 mg/dL 8.4-10.2 euhp=477) EGFR (BEAKER) (test 88 mL/min/1.73 sq m ESTIMATED GFR IS NOT wvtj=7730) ACCURATE CREATININE CLEARANCE IN PREDICTING GLOMERULAR FILTRATION RATE. ESTIMATED GFR IS NOT APPLICABLE FOR DIALYSIS PATIENTS. HEPATIC FUNCTION [id number] 06:41:00 Test Item Value Reference Range Comments TOTAL PROTEIN (BEAKER) (test ilrx=958) 6.3 gm/dL 6.0-8.3 ALBUMIN (BEAKER) (test wreu=5242) 3.9 g/dL 3.5-5.0 BILIRUBIN TOTAL (BEAKER) (test thwp=539) 1.7 mg/dL 0.2-1.2 BILIRUBIN DIRECT (BEAKER) (test pgph=134) 1.0 mg/dL 0.1-0.5 ALKALINE PHOSPHATASE (BEAKER) (test xosc=805) 126 U/L 40-150 AST (SGOT) (BEAKER) (test cmor=147) 118 U/L 5-34 ALT (SGPT) (BEAKER) (test levj=441) 56 U/L 6-55 BLOOD [id number] 06:00:00 Test Item Value Reference Range Comments CULTURE (BEAKER) (test xwyl=5668) No growth in 5 days BLOOD [id number] 06:00:00 Test Item Value Reference Range Comments CULTURE (BEAKER) (test qfcs=3020) No growth in 5 days POCT-GLUCOSE [id number] 21:33:00 Test Item Value Reference Range Comments POC-GLUCOSE METER (BEAKER) 126 mg/dL 70-[address] [facility] [address] [facility] [employer] (test ldla=9805) [facility] [address] BODY FLUID CELL COUNT WITH [id number] 20:39:00 Test Item Value Reference Range Comments APPEARANCE FLUID (BEAKER) (test zumt=639) Bloody Clear COLOR FLUID (BEAKER) (test sqch=277) Red Colorless, Straw RBC FLUID (BEAKER) (test fmsh=732) 71984 /cu mm <=1 ADJUSTED WBC FLUID (BEAKER) (test iajl=3071) 206 /cu mm <=5 LINING CELLS (BEAKER) (test sopc=5158) 4 /cu mm <=1 NEUTROPHILS FLUID (BEAKER) (test elrg=8077) 50 % LYMPHS FLUID (BEAKER) (test aihk=308) 5 % MONO/MACROPHAGE FLUID (BEAKER) (test deop=747) 45 % EOSINOPHILS FLUID (BEAKER) (test qjjl=554) 0 % BASO FLUID (BEAKER) (test incv=404) 0 % CONTAINER BODY FLUID (BEAKER) (test xkrw=7261) EDTA Tube TISSUE [id number] 18:33:00Surgical Pathology Report Case: [id number] Authorizing Provider: Tamera Mayorga MD Collected: 02/11/2018 1338 Ordering Location: [place] [address] ICU Received: 02/11/2018 1613 Pathologist: Herminia Hope MD Specimen: Hernia Sac, Umbilical SKIN AND HERNIA SAC, EXCISION:- SKIN WITH ULCER, NECROSIS, HERNIA WITH FIBROSIS, ADHESION AND CHRONIC INFLAMMATION Signing Pathologist Direct Phone Line: [phone] umbilical hernia Hernia sac umbilical The specimen is received in a formalin-filled container labeled with the patient's information and labeled "umbilical hernial sac" and consists of hemorrhagic membranous tissue measuring 6 x 3 x 0.2 cm with overlying brown skin measuring 5.5 x 3 x 0.3 cm, submitted in A1 and A2. There are no areas of suspicion. CG/ew PerformedPOCT-GLUCOSE [id number] 18:27:00 Test Item Value Reference Range Comments POC-GLUCOSE METER (BEAKER) 152 mg/dL 70-110 TESTED AT [address] (test lavt=1768) [facility] [address] U/S, [id number] 17:34:00Send fluid for cell ct \\T\\ diff, [...] MDReport Verified Date/Time: 02/14/2018 17:34:56 Reading Location: [facility] B1 [id number] Ultrasound Reading Room [id number] 15:56:00 Test Item Value Reference Range Comments PARTIAL THROMBOPLASTIN TIME (BEAKER) (test 28.9 seconds 22.5-36.0 ejqu=317) PROTHROMBIN [id number] 15:55:00 Test Item Value Reference Range Comments PROTIME (BEAKER) (test xkxp=318) 18.3 seconds 11.7-14.7 INR (BEAKER) (test wjtu=780) 1.5 <=5.9 RECOMMENDED COUMADIN/WARFARIN INR THERAPY RANGESSTANDARD DOSE: 2.0 - 3.0 Includes: PROPHYLAXIS forvenous thrombosis, systemic embolization; TREATMENT for venous thrombosis and/or pulmonary embolus.HIGH RISK: Target INR is 2.5-3.5 for patients with mechanical heart valves.CBC W/PLT COUNT & AUTO [id number] 15:49:00 Test Item Value Reference Range Comments WHITE BLOOD CELL COUNT (BEAKER) (test dqta=213) 6.5 K/ L 3.5-10.5 RED BLOOD CELL COUNT (BEAKER) (test vqql=508) 2.69 M/ L 3.93-5.22 HEMOGLOBIN (BEAKER) (test swwx=625) 8.5 GM/DL 11.2-15.7 HEMATOCRIT (BEAKER) (test bbfu=371) 25.9 % 34.1-44.9 MEAN CORPUSCULAR VOLUME (BEAKER) (test cmpk=561) 96.3 fL 79.4-94.8 MEAN CORPUSCULAR HEMOGLOBIN (BEAKER) (test 31.6 pg 25.6-32.2 ayei=520) MEAN CORPUSCULAR HEMOGLOBIN CONC (BEAKER) (test 32.8 GM/DL 32.2-35.5 sldr=512) RED CELL DISTRIBUTION WIDTH (BEAKER) (test 19.0 % 11.7-14.4 qqyp=471) PLATELET COUNT (BEAKER) (test hdum=614) 63 K/CU MM 150-450 MEAN PLATELET VOLUME (BEAKER) (test wysc=286) 11.6 fL 9.4-12.3 NUCLEATED RED BLOOD CELLS (BEAKER) (test 0 /100 WBC 0-0 rlbv=591) NEUTROPHILS RELATIVE PERCENT (BEAKER) (test 82 % ggqc=945) LYMPHOCYTES RELATIVE PERCENT (BEAKER) (test 4 % wzrs=097) MONOCYTES RELATIVE PERCENT (BEAKER) (test 9 % uvmf=015) EOSINOPHILS RELATIVE PERCENT (BEAKER) (test 3 % xzci=175) BASOPHILS RELATIVE PERCENT (BEAKER) (test 1 % xbar=424) NEUTROPHILS ABSOLUTE COUNT (BEAKER) (test 5.30 K/ L 1.56-6.13 aghf=134) LYMPHOCYTES ABSOLUTE COUNT (BEAKER) (test 0.26 K/ L 1.18-3.74 puez=221) MONOCYTES ABSOLUTE COUNT (BEAKER) (test kbcl=980) 0.59 K/ L 0.24-0.36 EOSINOPHILS ABSOLUTE COUNT (BEAKER) (test 0.20 K/ L 0.04-0.36 gvjw=139) BASOPHILS ABSOLUTE COUNT (BEAKER) (test ifcw=017) 0.06 K/ L 0.01-0.08 IMMATURE GRANULOCYTES-RELATIVE PERCENT (BEAKER) 1 % 0-1 (test zquc=8563) POCT-GLUCOSE [id number] 13:10:00 Test Item Value Reference Range Comments POC-GLUCOSE METER (BEAKER) 138 mg/dL 70-110 TESTED AT [address] (test lgle=6658) [facility] [address] SURGICALLY OBTAINED CULTURE + GRAM [id number] 11:29:00 Test Item Value Reference Range Comments CULTURE (BEAKER) (test zycz=9155) No growth GRAM STAIN RESULT (BEAKER) (test <1+ WBCs ryon=7624) GRAM STAIN RESULT (BEAKER) (test No organisms seen eaod=83660) CBC W/PLT COUNT & AUTO [id number] 09:31:00 Test Item Value Reference Range Comments WHITE BLOOD CELL COUNT (BEAKER) (test phzz=843) 5.3 K/ L 3.5-10.5 RED BLOOD CELL COUNT (BEAKER) (test dfqu=157) 2.76 M/ L 3.93-5.22 HEMOGLOBIN (BEAKER) (test flyq=684) 8.5 GM/DL 11.2-15.7 HEMATOCRIT (BEAKER) (test fwhg=041) 26.7 % 34.1-44.9 MEAN CORPUSCULAR VOLUME (BEAKER) (test zpjk=506) 96.7 fL 79.4-94.8 MEAN CORPUSCULAR HEMOGLOBIN (BEAKER) (test 30.8 pg 25.6-32.2 owyt=798) MEAN CORPUSCULAR HEMOGLOBIN CONC (BEAKER) (test 31.8 GM/DL 32.2-35.5 bcuo=698) RED CELL DISTRIBUTION WIDTH (BEAKER) (test 19.1 % 11.7-14.4 wvlf=097) PLATELET COUNT (BEAKER) (test nlkg=326) 82 K/CU MM 150-450 MEAN PLATELET VOLUME (BEAKER) (test erkf=453) 11.5 fL 9.4-12.3 NUCLEATED RED BLOOD CELLS (BEAKER) (test 0 /100 WBC 0-0 wpiw=151) NEUTROPHILS RELATIVE PERCENT (BEAKER) (test 79 % iwap=776) LYMPHOCYTES RELATIVE PERCENT (BEAKER) (test 6 % eccz=133) MONOCYTES RELATIVE PERCENT (BEAKER) (test 10 % boio=978) EOSINOPHILS RELATIVE PERCENT (BEAKER) (test 3 % yvnt=879) BASOPHILS RELATIVE PERCENT (BEAKER) (test 1 % nseg=526) NEUTROPHILS ABSOLUTE COUNT (BEAKER) (test 4.21 K/ L 1.56-6.13 ddkn=025) LYMPHOCYTES ABSOLUTE COUNT (BEAKER) (test 0.33 K/ L 1.18-3.74 hefy=329) MONOCYTES ABSOLUTE COUNT (BEAKER) (test fqwc=032) 0.55 K/ L 0.24-0.36 EOSINOPHILS ABSOLUTE COUNT (BEAKER) (test 0.17 K/ L 0.04-0.36 xico=750) BASOPHILS ABSOLUTE COUNT (BEAKER) (test fwlo=669) 0.05 K/ L 0.01-0.08 IMMATURE GRANULOCYTES-RELATIVE PERCENT (BEAKER) 1 % 0-1 (test qony=0279) POCT-GLUCOSE [id number] 08:00:00 Test Item Value Reference Range Comments POC-GLUCOSE METER (BEAKER) 100 mg/dL 70-[address] [facility] [address] [facility] (test quzs=7470) [facility] [address] [id number] 07:25:00 Test Item Value Reference Range Comments PHOSPHORUS (BEAKER) (test jxtl=187) 3.0 mg/dL 2.3-4.7 [id number] 07:25:00 Test Item Value Reference Range Comments MAGNESIUM (BEAKER) (test iuxb=129) 2.0 mg/dL 1.6-2.6 HEPATIC FUNCTION [id number] 07:25:00 Test Item Value Reference Range Comments TOTAL PROTEIN (BEAKER) (test wroj=176) 6.5 gm/dL 6.0-8.3 ALBUMIN (BEAKER) (test cfee=2144) 4.2 g/dL 3.5-5.0 BILIRUBIN TOTAL (BEAKER) (test hhus=635) 1.7 mg/dL 0.2-1.2 BILIRUBIN DIRECT (BEAKER) (test jjpw=565) 1.1 mg/dL 0.1-0.5 ALKALINE PHOSPHATASE (BEAKER) (test phgs=159) 140 U/L 40-150 AST (SGOT) (BEAKER) (test hyof=644) 182 U/L 5-34 ALT (SGPT) (BEAKER) (test qfdl=449) 58 U/L 6-55 POCT-GLUCOSE [id number] 23:06:00 Test Item Value Reference Range Comments POC-GLUCOSE METER (BEAKER) 106 mg/dL 70-110 TESTED AT [address] (test itfr=8213) [facility] [address] POCT-GLUCOSE [id number] 17:34:00 Test Item Value Reference Range Comments POC-GLUCOSE METER (BEAKER) 149 mg/dL 70-110 TESTED AT [address] (test bwtb=4187) [facility] [address] POCT-GLUCOSE [id number] 11:39:00 Test Item Value Reference Range Comments POC-GLUCOSE METER (BEAKER) 117 mg/dL 70-110 TESTED AT [address] (test uuiu=9018) [facility] [address] POCT-GLUCOSE [id number] 08:13:00 Test Item Value Reference Range Comments POC-GLUCOSE METER (BEAKER) 126 mg/dL 70-110 TESTED AT [address] (test tpkh=3999) [facility] [address] [id number] 06:41:00 Test Item Value Reference Range Comments PHOSPHORUS (BEAKER) (test igze=952) 2.1 mg/dL 2.3-4.7 [id number] 06:41:00 Test Item Value Reference Range Comments MAGNESIUM (BEAKER) (test bxtb=194) 2.1 mg/dL 1.6-2.6 HEPATIC FUNCTION [id number] 06:41:00 Test Item Value Reference Range Comments TOTAL PROTEIN (BEAKER) (test baoa=430) 6.6 gm/dL 6.0-8.3 ALBUMIN (BEAKER) (test fhxd=5204) 4.5 g/dL 3.5-5.0 BILIRUBIN TOTAL (BEAKER) (test nylv=867) 1.0 mg/dL 0.2-1.2 BILIRUBIN DIRECT (BEAKER) (test pvtf=095) 0.6 mg/dL 0.1-0.5 ALKALINE PHOSPHATASE (BEAKER) (test topt=050) 56 U/L 40-150 AST (SGOT) (BEAKER) (test jbkd=069) 51 U/L 5-34 ALT (SGPT) (BEAKER) (test snkf=786) 17 U/L 6-55 COMPREHENSIVE METABOLIC [id number] 06:41:00 Test Item Value Reference Range Comments TOTAL PROTEIN (BEAKER) 6.6 gm/dL 6.0-8.3 (test xqsy=487) ALBUMIN (BEAKER) (test 4.5 g/dL 3.5-5.0 rjyt=9773) ALKALINE PHOSPHATASE 56 U/L 40-150 (BEAKER) (test sjng=216) BILIRUBIN TOTAL (BEAKER) 1.0 mg/dL 0.2-1.2 (test mzyn=503) SODIUM (BEAKER) (test 138 meq/L 136-145 szoy=039) POTASSIUM (BEAKER) (test 3.3 meq/L 3.5-5.1 akff=937) CHLORIDE (BEAKER) (test 114 meq/L 98-107 bwth=453) CO2 (BEAKER) (test 15 meq/L 22-29 wcvh=523) BLOOD UREA NITROGEN 15 mg/dL 7-21 (BEAKER) (test cpvr=206) CREATININE (BEAKER) (test 0.83 mg/dL 0.57-1.25 ymhw=052) GLUCOSE RANDOM (BEAKER) 108 mg/dL 70-105 (test sekf=828) CALCIUM (BEAKER) (test 9.0 mg/dL 8.4-10.2 ceyw=668) AST (SGOT) (BEAKER) (test 51 U/L 5-34 zxqp=705) ALT (SGPT) (BEAKER) (test 17 U/L 6-55 ahcx=106) EGFR (BEAKER) (test 73 mL/min/1.73 sq m ESTIMATED GFR IS NOT yjvm=6229) ACCURATE CREATININE CLEARANCE IN PREDICTING GLOMERULAR FILTRATION RATE. ESTIMATED GFR IS NOT APPLICABLE FOR DIALYSIS PATIENTS. CBC W/PLT COUNT & AUTO [id number] 06:25:00 Test Item Value Reference Range Comments WHITE BLOOD CELL COUNT (BEAKER) (test bhgt=109) 6.7 K/ L 3.5-10.5 RED BLOOD CELL COUNT (BEAKER) (test kamw=462) 2.17 M/ L 3.93-5.22 HEMOGLOBIN (BEAKER) (test xour=934) 6.8 GM/DL 11.2-15.7 HEMATOCRIT (BEAKER) (test cibg=501) 21.8 % 34.1-44.9 MEAN CORPUSCULAR VOLUME (BEAKER) (test mkys=434) 100.5 fL 79.4-94.8 MEAN CORPUSCULAR HEMOGLOBIN (BEAKER) (test 31.3 pg 25.6-32.2 jmou=115) MEAN CORPUSCULAR HEMOGLOBIN CONC (BEAKER) (test 31.2 GM/DL 32.2-35.5 wdsv=128) RED CELL DISTRIBUTION WIDTH (BEAKER) (test 19.9 % 11.7-14.4 oayc=082) PLATELET COUNT (BEAKER) (test rvdf=869) 84 K/CU MM 150-450 MEAN PLATELET VOLUME (BEAKER) (test zymk=348) 11.1 fL 9.4-12.3 NUCLEATED RED BLOOD CELLS (BEAKER) (test 0 /100 WBC 0-0 hgkt=704) NEUTROPHILS RELATIVE PERCENT (BEAKER) (test 84 % umbe=502) LYMPHOCYTES RELATIVE PERCENT (BEAKER) (test 4 % uzac=659) MONOCYTES RELATIVE PERCENT (BEAKER) (test 12 % bpko=111) EOSINOPHILS RELATIVE PERCENT (BEAKER) (test 0 % jlgk=198) BASOPHILS RELATIVE PERCENT (BEAKER) (test 0 % gzrx=470) NEUTROPHILS ABSOLUTE COUNT (BEAKER) (test 5.59 K/ L 1.56-6.13 eeeg=631) LYMPHOCYTES ABSOLUTE COUNT (BEAKER) (test 0.25 K/ L 1.18-3.74 tbaf=808) MONOCYTES ABSOLUTE COUNT (BEAKER) (test cfsk=524) 0.77 K/ L 0.24-0.36 EOSINOPHILS ABSOLUTE COUNT (BEAKER) (test 0.02 K/ L 0.04-0.36 cglt=711) BASOPHILS ABSOLUTE COUNT (BEAKER) (test nrlo=382) 0.00 K/ L 0.01-0.08 IMMATURE GRANULOCYTES-RELATIVE PERCENT (BEAKER) 1 % 0-1 (test cfhv=7686) SPIN/CONCENTRATION [id number] 15:23:00 Test Item Value Reference Range Comments CONCENTRATION CHARGED (BEAKER) (test kdth=5626) Done POCT-GLUCOSE [id number] 08:15:00 Test Item Value Reference Range Comments POC-GLUCOSE METER (BEAKER) 147 mg/dL 70-[address] [facility] [address] [facility] (test wtnj=9792) [facility] [address] HIV-1 ANTIGEN WITH HIV-1/2 [id number] 06:57:00 Test Item Value Reference Range Comments HIV-1 ANTIGEN WITH HIV 1\\T\\2 ANTIBODY (2) Nonreactive Nonreactive (BEAKER) (test nimd=9835) [id number] 06:35:00 Test Item Value Reference Range Comments PHOSPHORUS (BEAKER) (test ljqi=979) 2.8 mg/dL 2.3-4.7 [id number] 06:35:00 Test Item Value Reference Range Comments MAGNESIUM (BEAKER) (test czfh=529) 1.9 mg/dL 1.6-2.6 BASIC METABOLIC [id number] 06:35:00 Test Item Value Reference Range Comments SODIUM (BEAKER) (test 133 meq/L 136-145 drbs=145) POTASSIUM (BEAKER) (test 3.9 meq/L 3.5-5.1 dqrk=662) CHLORIDE (BEAKER) (test 111 meq/L 98-107 oypi=858) CO2 (BEAKER) (test 13 meq/L 22-29 ccac=755) BLOOD UREA NITROGEN 18 mg/dL 7-21 (BEAKER) (test lncb=178) CREATININE (BEAKER) (test 0.86 mg/dL 0.57-1.25 phnu=941) GLUCOSE RANDOM (BEAKER) 142 mg/dL 70-105 (test bqrs=572) CALCIUM (BEAKER) (test 8.7 mg/dL 8.4-10.2 ryrp=510) EGFR (BEAKER) (test 70 mL/min/1.73 sq m ESTIMATED GFR IS NOT bvrw=4440) ACCURATE CREATININE CLEARANCE IN PREDICTING GLOMERULAR FILTRATION RATE. ESTIMATED GFR IS NOT APPLICABLE FOR DIALYSIS PATIENTS. HEPATIC FUNCTION [id number] 06:35:00 Test Item Value Reference Range Comments TOTAL PROTEIN (BEAKER) (test ycvn=181) 6.4 gm/dL 6.0-8.3 ALBUMIN (BEAKER) (test xcxr=7563) 4.0 g/dL 3.5-5.0 BILIRUBIN TOTAL (BEAKER) (test wnvn=052) 1.5 mg/dL 0.2-1.2 BILIRUBIN DIRECT (BEAKER) (test ocds=859) 0.9 mg/dL 0.1-0.5 ALKALINE PHOSPHATASE (BEAKER) (test eeus=428) 46 U/L 40-150 AST (SGOT) (BEAKER) (test eczq=375) 32 U/L 5-34 ALT (SGPT) (BEAKER) (test qyqe=838) 12 U/L 6-55 CBC W/PLT COUNT & AUTO [id number] 06:26:00 Test Item Value Reference Range Comments WHITE BLOOD CELL COUNT (BEAKER) (test stnm=731) 6.4 K/ L 3.5-10.5 RED BLOOD CELL COUNT (BEAKER) (test mukl=133) 2.47 M/ L 3.93-5.22 HEMOGLOBIN (BEAKER) (test swbx=218) 7.5 GM/DL 11.2-15.7 HEMATOCRIT (BEAKER) (test yayi=441) 24.3 % 34.1-44.9 MEAN CORPUSCULAR VOLUME (BEAKER) (test djzu=161) 98.4 fL 79.4-94.8 MEAN CORPUSCULAR HEMOGLOBIN (BEAKER) (test 30.4 pg 25.6-32.2 lkjj=665) MEAN CORPUSCULAR HEMOGLOBIN CONC (BEAKER) (test 30.9 GM/DL 32.2-35.5 odde=914) RED CELL DISTRIBUTION WIDTH (BEAKER) (test 20.0 % 11.7-14.4 eihy=684) PLATELET COUNT (BEAKER) (test rwsp=255) 85 K/CU MM 150-450 MEAN PLATELET VOLUME (BEAKER) (test rsvr=340) 11.3 fL 9.4-12.3 NUCLEATED RED BLOOD CELLS (BEAKER) (test 0 /100 WBC 0-0 rkll=108) NEUTROPHILS RELATIVE PERCENT (BEAKER) (test 92 % rcln=758) LYMPHOCYTES RELATIVE PERCENT (BEAKER) (test 3 % qyzx=545) MONOCYTES RELATIVE PERCENT (BEAKER) (test 5 % nkjw=479) EOSINOPHILS RELATIVE PERCENT (BEAKER) (test 0 % ftzn=093) BASOPHILS RELATIVE PERCENT (BEAKER) (test 0 % cqyd=060) NEUTROPHILS ABSOLUTE COUNT (BEAKER) (test 5.89 K/ L 1.56-6.13 gngk=250) LYMPHOCYTES ABSOLUTE COUNT (BEAKER) (test 0.19 K/ L 1.18-3.74 jofm=456) MONOCYTES ABSOLUTE COUNT (BEAKER) (test gmvx=673) 0.31 K/ L 0.24-0.36 EOSINOPHILS ABSOLUTE COUNT (BEAKER) (test 0.00 K/ L 0.04-0.36 xpiy=293) BASOPHILS ABSOLUTE COUNT (BEAKER) (test qiax=524) 0.00 K/ L 0.01-0.08 IMMATURE GRANULOCYTES-RELATIVE PERCENT (BEAKER) 1 % 0-1 (test rhgi=4436) POCT-GLUCOSE [id number] 00:47:00 Test Item Value Reference Range Comments POC-GLUCOSE METER (BEAKER) 220 mg/dL 70-110 TESTED AT [address] (test uygf=7895) [facility] [address] [id number] 19:57:00 Test Item Value Reference Range Comments PHOSPHORUS (BEAKER) (test vqwv=566) 2.9 mg/dL 2.3-4.7 [id number] 19:57:00 Test Item Value Reference Range Comments MAGNESIUM (BEAKER) (test sxaz=556) 1.7 mg/dL 1.6-2.6 [id number] 16:27:00 Test Item Value Reference Range Comments PROTIME (BEAKER) (test akcf=108) 18.7 seconds 11.7-14.7 INR (BEAKER) (test emmj=642) 1.6 <=5.9 PARTIAL THROMBOPLASTIN TIME (BEAKER) (test 36.5 seconds 22.5-36.0 opbb=103) RECOMMENDED COUMADIN/WARFARIN INR THERAPY RANGESSTANDARD DOSE: 2.0 - 3.0 Includes: PROPHYLAXIS forvenous thrombosis, systemic embolization; TREATMENT for venous thrombosis and/or pulmonary embolus.HIGH RISK: Target INR is 2.5-3.5 for patients with mechanical heart valves.BASIC METABOLIC [id number] 16:24: 00 Test Item Value Reference Range Comments SODIUM (BEAKER) (test 136 meq/L 136-145 dquj=330) POTASSIUM (BEAKER) (test 3.7 meq/L 3.5-5.1 qzvv=572) CHLORIDE (BEAKER) (test 113 meq/L 98-107 skpj=502) CO2 (BEAKER) (test 16 meq/L 22-29 gzmr=175) BLOOD UREA NITROGEN 20 mg/dL 7-21 (BEAKER) (test gibp=227) CREATININE (BEAKER) (test 1.03 mg/dL 0.57-1.25 mkbr=627) GLUCOSE RANDOM (BEAKER) 133 mg/dL 70-105 (test cngm=878) CALCIUM (BEAKER) (test 8.2 mg/dL 8.4-10.2 lbxr=676) EGFR (BEAKER) (test 57 mL/min/1.73 sq m ESTIMATED GFR IS NOT wbig=7171) ACCURATE CREATININE CLEARANCE IN PREDICTING GLOMERULAR FILTRATION RATE. ESTIMATED GFR IS NOT APPLICABLE FOR DIALYSIS PATIENTS. CBC W/PLT COUNT & AUTO [id number] 16:00:00 Test Item Value Reference Range Comments WHITE BLOOD CELL COUNT (BEAKER) (test jizb=448) 4.6 K/ L 3.5-10.5 RED BLOOD CELL COUNT (BEAKER) (test doly=926) 2.57 M/ L 3.93-5.22 HEMOGLOBIN (BEAKER) (test hnvu=656) 7.9 GM/DL 11.2-15.7 HEMATOCRIT (BEAKER) (test ubra=644) 24.9 % 34.1-44.9 MEAN CORPUSCULAR VOLUME (BEAKER) (test tglq=889) 96.9 fL 79.4-94.8 MEAN CORPUSCULAR HEMOGLOBIN (BEAKER) (test 30.7 pg 25.6-32.2 mdsa=990) MEAN CORPUSCULAR HEMOGLOBIN CONC (BEAKER) (test 31.7 GM/DL 32.2-35.5 cumx=313) RED CELL DISTRIBUTION WIDTH (BEAKER) (test 20.0 % 11.7-14.4 okjb=469) PLATELET COUNT (BEAKER) (test dfdt=157) 101 K/CU MM 150-450 MEAN PLATELET VOLUME (BEAKER) (test vynw=943) 10.5 fL 9.4-12.3 NUCLEATED RED BLOOD CELLS (BEAKER) (test 0 /100 WBC 0-0 qogm=722) NEUTROPHILS RELATIVE PERCENT (BEAKER) (test 94 % aanq=918) LYMPHOCYTES RELATIVE PERCENT (BEAKER) (test 3 % uzaf=981) MONOCYTES RELATIVE PERCENT (BEAKER) (test 2 % kzbd=053) EOSINOPHILS RELATIVE PERCENT (BEAKER) (test 1 % mtom=508) BASOPHILS RELATIVE PERCENT (BEAKER) (test 1 % vdzb=531) NEUTROPHILS ABSOLUTE COUNT (BEAKER) (test 4.31 K/ L 1.56-6.13 usnj=653) LYMPHOCYTES ABSOLUTE COUNT (BEAKER) (test 0.12 K/ L 1.18-3.74 ptny=935) MONOCYTES ABSOLUTE COUNT (BEAKER) (test 0.10 K/ L 0.24-0.36 avex=867) EOSINOPHILS ABSOLUTE COUNT (BEAKER) (test 0.03 K/ L 0.04-0.36 ihzs=003) BASOPHILS ABSOLUTE COUNT (BEAKER) (test 0.03 K/ L 0.01-0.08 mmeq=338) IMMATURE GRANULOCYTES-RELATIVE PERCENT (BEAKER) 0 % 0-1 (test mdcf=3452) HGB/HCT (H&H) - STAT [id number] 13:33:00 Test Item Value Reference Range Comments HEMOGLOBIN (BEAKER) (test uxdi=649) 8.7 g/dL 12.0-15.0 HEMATOCRIT (BEAKER) (test czqc=351) 26.0 % 36.0-45.0 THIS IS A VENOUS SAMPLECALCIUM, [id number] 13:33:00 Test Item Value Reference Range Comments CALCIUM IONIZED (BEAKER) (test fslw=137) 1.07 mmol/L 1.12-1.27 PH, BLOOD (BEAKER) (test fpas=9585) 7.28 GLUCOSE-STAT [id number] 13:33:00 Test Item Value Reference Range Comments GLUCOSE RANDOM (BEAKER) (test vwse=275) 122 mg/dL 70-110 THIS IS A VENOUS SAMPLETHIS IS A VENOUS SAMPLETHIS IS A VENOUS SAMPLESODIUM NA- STAT [id number] 13:32:00 Test Item Value Reference Range Comments SODIUM (BEAKER) (test sgpv=604) 135 meq/L 135-148 THIS IS A VENOUS SAMPLETHIS IS A VENOUS SAMPLETHIS IS A VENOUS SAMPLEPOTASSIUM- STAT [id number] 13:32:00 Test Item Value Reference Range Comments POTASSIUM (BEAKER) (test tach=570) 3.9 meq/L 3.6-5.5 THIS IS A VENOUS SAMPLETHIS IS A VENOUS SAMPLETHIS IS A VENOUS SAMPLEU/S, ABDOMINAL, [id number] 09:32:00Reason for exam:->ascites, acute renal failure, hydronephrosisShould [...] MDReport Verified Date/Time: 02/11/2018 09:32:36 Reading Location: [address] Ultrasound Reading Room Electronically signed by: BELA RIOS M.D. on 05/2018 09:32 AMPOCT-GLUCOSE [id number] 08:05:00 Test Item Value Reference Range Comments POC-GLUCOSE METER (BEAKER) 117 mg/dL 70-[address] [facility] [address] [facility] (test hctl=8468) [facility] [address] COMPREHENSIVE METABOLIC [id number] 07:53:00 Test Item Value Reference Range Comments TOTAL PROTEIN (BEAKER) 6.1 gm/dL 6.0-8.3 (test wudd=721) ALBUMIN (BEAKER) (test 3.2 g/dL 3.5-5.0 ehii=1161) ALKALINE PHOSPHATASE 58 U/L 40-150 (BEAKER) (test tkau=618) BILIRUBIN TOTAL (BEAKER) 1.6 mg/dL 0.2-1.2 (test tppv=937) SODIUM (BEAKER) (test 135 meq/L 136-145 hdlt=040) POTASSIUM (BEAKER) (test 3.5 meq/L 3.5-5.1 mins=461) CHLORIDE (BEAKER) (test 111 meq/L 98-107 luyv=224) CO2 (BEAKER) (test 17 meq/L 22-29 xdcs=651) BLOOD UREA NITROGEN 25 mg/dL 7-21 (BEAKER) (test bnkp=724) CREATININE (BEAKER) (test 1.29 mg/dL 0.57-1.25 omhy=426) GLUCOSE RANDOM (BEAKER) 110 mg/dL 70-105 (test dwmx=253) CALCIUM (BEAKER) (test 8.5 mg/dL 8.4-10.2 erds=387) AST (SGOT) (BEAKER) (test 39 U/L 5-34 tljl=274) ALT (SGPT) (BEAKER) (test 13 U/L 6-55 rahf=300) EGFR (BEAKER) (test 44 mL/min/1.73 sq m ESTIMATED GFR IS NOT zmpl=8869) ACCURATE CREATININE CLEARANCE IN PREDICTING GLOMERULAR FILTRATION RATE. ESTIMATED GFR IS NOT APPLICABLE FOR DIALYSIS PATIENTS. CT, [id number] 07:50:00FINAL REPORT HISTORY : Hernia, complicated Technique: [...] [facility] Diagnostic Imaging Reading Room - [place] [id number] Electronically signed by: JESSE HATHAWAY M.D. on 2017 07:50 [id number] 07:06:00 Test Item Value Reference Range Comments PROTIME (BEAKER) (test rfvn=630) 17.3 seconds 11.7-14.7 INR (BEAKER) (test vfns=777) 1.4 <=5.9 PARTIAL THROMBOPLASTIN TIME (BEAKER) (test 34.7 seconds 22.5-36.0 vazr=070) RECOMMENDED COUMADIN/WARFARIN INR THERAPY RANGESSTANDARD DOSE: 2.0 - 3.0 Includes: PROPHYLAXIS forvenous thrombosis, systemic embolization; TREATMENT for venous thrombosis and/or pulmonary embolus.HIGH RISK: Target INR is 2.5-3.5 for patients with mechanical heart valves.CBC W/PLT COUNT & AUTO [id number] 06:22:00 Test Item Value Reference Range Comments WHITE BLOOD CELL COUNT (BEAKER) (test lpyn=972) 4.1 K/ L 3.5-10.5 RED BLOOD CELL COUNT (BEAKER) (test untx=667) 2.36 M/ L 3.93-5.22 HEMOGLOBIN (BEAKER) (test gnps=414) 7.5 GM/DL 11.2-15.7 HEMATOCRIT (BEAKER) (test wmmo=429) 22.9 % 34.1-44.9 MEAN CORPUSCULAR VOLUME (BEAKER) (test srkh=277) 97.0 fL 79.4-94.8 MEAN CORPUSCULAR HEMOGLOBIN (BEAKER) (test 31.8 pg 25.6-32.2 rorz=110) MEAN CORPUSCULAR HEMOGLOBIN CONC (BEAKER) (test 32.8 GM/DL 32.2-35.5 hmnz=346) RED CELL DISTRIBUTION WIDTH (BEAKER) (test 21.1 % 11.7-14.4 odvd=415) PLATELET COUNT (BEAKER) (test duqr=691) 131 K/CU MM 150-450 MEAN PLATELET VOLUME (BEAKER) (test tqdu=483) 11.0 fL 9.4-12.3 NUCLEATED RED BLOOD CELLS (BEAKER) (test 0 /100 WBC 0-0 qqks=919) NEUTROPHILS RELATIVE PERCENT (BEAKER) (test 69 % rpnw=107) LYMPHOCYTES RELATIVE PERCENT (BEAKER) (test 11 % zxzn=237) MONOCYTES RELATIVE PERCENT (BEAKER) (test 15 % unjf=175) EOSINOPHILS RELATIVE PERCENT (BEAKER) (test 4 % xedu=499) BASOPHILS RELATIVE PERCENT (BEAKER) (test 1 % srok=806) NEUTROPHILS ABSOLUTE COUNT (BEAKER) (test 2.82 K/ L 1.56-6.13 esxy=941) LYMPHOCYTES ABSOLUTE COUNT (BEAKER) (test 0.43 K/ L 1.18-3.74 cfmy=388) MONOCYTES ABSOLUTE COUNT (BEAKER) (test 0.60 K/ L 0.24-0.36 oxfj=312) EOSINOPHILS ABSOLUTE COUNT (BEAKER) (test 0.17 K/ L 0.04-0.36 mybv=366) BASOPHILS ABSOLUTE COUNT (BEAKER) (test 0.03 K/ L 0.01-0.08 pbye=980) IMMATURE GRANULOCYTES-RELATIVE PERCENT (BEAKER) 1 % 0-1 (test uixj=0689) POCT-GLUCOSE [id number] 00:49:00 Test Item Value Reference Range Comments POC-GLUCOSE METER (BEAKER) 95 mg/dL 70-[address] [facility] [address] [employer] [facility] [employer] (test guvj=1566) [facility] [address] [id number] 21:49:00 Test Item Value Reference Range Comments POTASSIUM (BEAKER) (test 3.9 meq/L 3.5-5.1 Specimen moderately hemolyzed gwsb=020) SODIUM, RANDOM [id number] 19:06:00 Test Item Value Reference Range Comments SODIUM URINE (BEAKER) (test ovnw=157) < meq/L Reference Range: No NormalsCREATININE, RANDOM [id number] 19:02:00 Test Item Value Reference Range Comments CREATININE URINE (BEAKER) (test xdru=007) 160.3 mg/dL Reference Range: No NormalsPROTEIN, RANDOM [id number] 19:02:00 Test Item Value Reference Range Comments PROTEIN, URINE (BEAKER) (test txdl=7744) 19 mg/dL 0-14 SCREEN, [id number] 18:47:00 Test Item Value Reference Range Comments TEST URINE (BEAKER) (test havz=396) Negative POCT-GLUCOSE [id number] 18:08:00 Test Item Value Reference Range Comments POC-GLUCOSE METER (BEAKER) 183 mg/dL 70-110 TESTED AT [address] (test btya=4475) [facility] [address] [id number] 13:33:00 Test Item Value Reference Range Comments POTASSIUM (BEAKER) (test foaj=934) 3.2 meq/L 3.5-5.1 CBC (HEMOGRAM ONLY)2018-02-10 13:20:00 Test Item Value Reference Range Comments WHITE BLOOD CELL COUNT 4.6 K/ L 3.5-10.5 (BEAKER) (test cwoy=691) RED BLOOD CELL COUNT (BEAKER) 2.47 M/ L 3.93-5.22 (test qjgo=689) HEMOGLOBIN (BEAKER) (test 7.6 GM/DL 11.2-15.7 tcor=022) HEMATOCRIT (BEAKER) (test 23.0 % 34.1-44.9 ywvz=288) MEAN CORPUSCULAR VOLUME 93.1 fL 79.4-94.8 Discordant from previous (BEAKER) (test fafs=882) results. Clinical correlation suggested. MEAN CORPUSCULAR HEMOGLOBIN 30.8 pg 25.6-32.2 (BEAKER) (test rolf=967) MEAN CORPUSCULAR HEMOGLOBIN 33.0 GM/DL 32.2-35.5 CONC (BEAKER) (test hdbv=093) RED CELL DISTRIBUTION WIDTH 20.5 % 11.7-14.4 (BEAKER) (test omqh=401) PLATELET COUNT (BEAKER) (test 111 K/CU MM 150-450 qmoj=593) MEAN PLATELET VOLUME (BEAKER) 11.2 fL 9.4-12.3 (test jqlo=945) NUCLEATED RED BLOOD CELLS 0 /100 WBC 0-0 (BEAKER) (test tyyj=281) POCT-GLUCOSE [id number] 11:51:00 Test Item Value Reference Range Comments POC-GLUCOSE METER (BEAKER) 123 mg/dL 70-110 TESTED AT [place] [id number] [employer] [facility] (test skkf=4400) [facility] [address] POCT-GLUCOSE [id number] 06:46:00 Test Item Value Reference Range Comments POC-GLUCOSE METER (BEAKER) 237 mg/dL 70-[address] [facility] [address] (test ixbk=0071) [facility] [address] CBC (HEMOGRAM ONLY)2018-02-10 06:44:00 Test Item Value Reference Range Comments WHITE BLOOD CELL COUNT (BEAKER) (test mgav=181) 2.8 K/ L 3.5-10.5 RED BLOOD CELL COUNT (BEAKER) (test lwic=893) 2.34 M/ L 3.93-5.22 HEMOGLOBIN (BEAKER) (test ibim=585) 7.2 GM/DL 11.2-15.7 HEMATOCRIT (BEAKER) (test xvhs=747) 22.8 % 34.1-44.9 MEAN CORPUSCULAR VOLUME (BEAKER) (test anrm=825) 97.4 fL 79.4-94.8 MEAN CORPUSCULAR HEMOGLOBIN (BEAKER) (test 30.8 pg 25.6-32.2 grrs=452) MEAN CORPUSCULAR HEMOGLOBIN CONC (BEAKER) (test 31.6 GM/DL 32.2-35.5 jjfa=396) RED CELL DISTRIBUTION WIDTH (BEAKER) (test 20.3 % 11.7-14.4 njbw=077) PLATELET COUNT (BEAKER) (test vwin=959) 102 K/CU MM 150-450 MEAN PLATELET VOLUME (BEAKER) (test djkq=898) 11.3 fL 9.4-12.3 NUCLEATED RED BLOOD CELLS (BEAKER) (test 0 /100 WBC 0-0 koyx=861) RAPID DRUG SCREEN, [id number] 06:12:00 Test Item Value Reference Range Comments BARBITURATE URINE (BEAKER) (test ikgr=047) Negative Negative BENZODIAZEPINE SCREEN URINE (BEAKER) (test Negative Negative watv=418) COCAINE (METAB.) SCREEN (BEAKER) (test zpux=6854) Negative Negative METHADONE SCREEN (BEAKER) (test epwb=1794) Negative Negative OPIATE SCREEN URINE (BEAKER) (test stmo=919) Negative Negative CANNABINOID SCREEN URINE (BEAKER) (test anew=058) Negative Negative AMPH/METHAMPH SCREEN (BEAKER) (test mkvv=7649) Negative Negative PHENCYCLIDINE SCREEN URINE (BEAKER) (test jebg=234) Negative Negative OXYCODONE SCREEN URINE (BEAKER) (test oxam=1921) Negative Negative DRUG CUTOFF CONC.Cocaine 300 ng/mL Cannabinoid 50 ng/mL Benzodiazepine 200 ng/mLBarbiturate 200 ng/ mLPhencyclidine 25 ng/mLOpiate 300 ng/mLMethadone 300 ng/mLAmphetamine/ 1000 ng/mL MethamphetamineOxycodone 300 ng/mLThis assay provides an unconfirmed qualitative test result for the clinical management of patients in emergency situations. Chain of custody not maintained. Some ofad-sag-gdwogum medications, as well as adulterants, may cause inaccurate results. Clinical correlation should be applied. A more comprehensive drug screen or confirmation of a detected drug may be performed upon request.URINALYSIS W/ REFLEX URINE [id number] 04:33:00 Test Item Value Reference Range Comments COLOR (BEAKER) (test iery=232) Yellow CLARITY (BEAKER) (test pbfe=068) Hazy SPECIFIC GRAVITY UA (BEAKER) (test bmgn=733) 1.013 1.001-1.035 PH UA (BEAKER) (test gyst=689) 6.0 5.0-8.0 PROTEIN UA (BEAKER) (test nhoj=062) 10 mg/dL Negative GLUCOSE UA (BEAKER) (test unrv=700) Negative Negative KETONES UA (BEAKER) (test uaxn=703) Trace Negative BILIRUBIN UA (BEAKER) (test ffye=949) Negative Negative BLOOD UA (BEAKER) (test xaym=359) Negative Negative NITRITE UA (BEAKER) (test gizn=929) Negative Negative LEUKOCYTE ESTERASE UA (BEAKER) (test kiqk=358) Negative Negative UROBILINOGEN UA (BEAKER) (test adkb=622) 0.2 mg/dL 0.2-1.0 RBC UA (BEAKER) (test jqxa=800) < /HPF WBC UA (BEAKER) (test numz=449) 2 /HPF BACTERIA (BEAKER) (test iljn=081) Rare MUCUS (BEAKER) (test juut=3208) Rare SQUAMOUS EPITHELIAL (BEAKER) (test pdok=475) 8 /HPF HYALINE CASTS (BEAKER) (test snxs=732) 70 /LPF AMORPHOUS CRYSTALS (BEAKER) (test ceez=2606) Rare SOURCE(BEAKER) (test zxsa=9441) BASIC METABOLIC [id number] 02:35:00 Test Item Value Reference Range Comments SODIUM (BEAKER) (test 137 meq/L 136-145 tlxj=789) POTASSIUM (BEAKER) (test 2.9 meq/L 3.5-5.1 hylz=938) CHLORIDE (BEAKER) (test 109 meq/L 98-107 thob=349) CO2 (BEAKER) (test 14 meq/L 22-29 wswd=870) BLOOD UREA NITROGEN 31 mg/dL 7-21 (BEAKER) (test aihx=004) CREATININE (BEAKER) (test 1.98 mg/dL 0.57-1.25 dwsu=972) GLUCOSE RANDOM (BEAKER) 146 mg/dL 70-105 (test nqow=315) CALCIUM (BEAKER) (test 8.9 mg/dL 8.4-10.2 ihyf=172) EGFR (BEAKER) (test 27 mL/min/1.73 sq m ESTIMATED GFR IS NOT eokp=7552) ACCURATE CREATININE CLEARANCE IN PREDICTING GLOMERULAR FILTRATION RATE. ESTIMATED GFR IS NOT APPLICABLE FOR DIALYSIS PATIENTS. [id number] 02:35:00 Test Item Value Reference Range Comments MAGNESIUM (BEAKER) (test cbqn=750) 2.0 mg/dL 1.6-2.6 HEPATIC FUNCTION [id number] 02:35:00 Test Item Value Reference Range Comments TOTAL PROTEIN (BEAKER) (test muir=744) 7.4 gm/dL 6.0-8.3 ALBUMIN (BEAKER) (test uopn=5905) 3.8 g/dL 3.5-5.0 BILIRUBIN TOTAL (BEAKER) (test xqec=128) 1.8 mg/dL 0.2-1.2 BILIRUBIN DIRECT (BEAKER) (test hpvb=051) 0.9 mg/dL 0.1-0.5 ALKALINE PHOSPHATASE (BEAKER) (test cmvb=420) 73 U/L 40-150 AST (SGOT) (BEAKER) (test rput=373) 38 U/L 5-34 ALT (SGPT) (BEAKER) (test lqow=896) 14 U/L 6-55 BLOOD GAS, [id number] 02:34:00 Test Item Value Reference Range Comments PH VENOUS (BEAKER) (test jwoz=550) 7.42 7.32-7.42 PCO2 VENOUS (BEAKER) (test swzn=651) 28 mmHg 41-51 PO2 VENOUS (BEAKER) (test slhu=996) 34 mmHg 25-40 O2 SATURATION VENOUS (BEAKER) (test hkcq=617) 67.6 % 40.0-70.0 HCO3 VENOUS (BEAKER) (test ljrr=507) 17 mmol/L 21-29 BASE EXCESS VENOUS (BEAKER) (test suvl=400) -6.2 mmol/L -2.0-3.0 PATIENT TEMPERATURE (BEAKER) (test fifr=4477) 37.0 C [id number] 02:33:00 Test Item Value Reference Range Comments PHOSPHORUS (BEAKER) (test cukg=082) 3.7 mg/dL 2.3-4.7 [id number] 02:33:00 Test Item Value Reference Range Comments LIPASE (BEAKER) (test wuok=010) 40 U/L 8-78 CREATINE KINASE (CK), TOTAL AND [id number] 02:30:00 Test Item Value Reference Range Comments CREATINE KINASE TOTAL (BEAKER) (test wvfe=657) 30 U/L 29-200 CREATINE KINASE-MB (BEAKER) (test xpcs=156) 0.4 ng/mL 0.0-6.6 CREATINE KINASE-MB INDEX (BEAKER) (test zadm=927) 1.3 % CK-MB Reference Range:<6.7 Normal6.7-10.0 Borderline>10.0 AbnormalTROPONIN [id number] 02:30:00 Test Item Value Reference Range Comments TROPONIN I (BEAKER) (test nqwf=525) < ng/mL 0.00-0.03 Troponin I (TnI) levels [...] failure, acidosis, acute neurological disease, and persistent tachyarrhythmia.[id number] 02:19:00 Test Item Value Reference Range Comments ETHANOL (BEAKER) (test utlj=291) < mg/dL <=10 [id number] 02:17:00 Test Item Value Reference Range Comments PARTIAL THROMBOPLASTIN TIME (BEAKER) (test 32.8 seconds 22.5-36.0 cjdt=816) LACTIC ACID, VENOUS, WHOLE [id number] 02:17:00 Test Item Value Reference Range Comments LACTATE BLOOD VENOUS (2) (BEAKER) (test 1.2 mmol/L 0.5-2.2 lytp=5133) Effective 12/07/2015: Units/Reference Range ChangeNew: 0.5-2.2 mmol/L Previous: 5 -20 mg/dLPROTHROMBIN TIME/[id number] 02:16:00 Test Item Value Reference Range Comments PROTIME (BEAKER) (test wtvg=702) 17.0 seconds 11.7-14.7 INR (BEAKER) (test uush=502) 1.4 <=5.9 RECOMMENDED COUMADIN/WARFARIN INR THERAPY RANGESSTANDARD DOSE: 2.0 - 3.0 Includes: PROPHYLAXIS forvenous thrombosis, systemic embolization; TREATMENT for venous thrombosis and/or pulmonary embolus.HIGH RISK: Target INR is 2.5-3.5 for patients with mechanical heart valves.[id number] 02:16:00 Test Item Value Reference Range Comments AMMONIA (BEAKER) (test dhqe=963) 75 mol/L 18-72 [id number] 02:16:00 Test Item Value Reference Range Comments FIBRINOGEN LEVEL (BEAKER) (test hmrd=290) 372 mg/dl 225-434 CBC W/PLT COUNT & AUTO [id number] 02:10:00 Test Item Value Reference Range Comments WHITE BLOOD CELL COUNT (BEAKER) (test nvmn=542) 4.0 K/ L 3.5-10.5 RED BLOOD CELL COUNT (BEAKER) (test gbrj=599) 2.78 M/ L 3.93-5.22 HEMOGLOBIN (BEAKER) (test aiyb=115) 8.5 GM/DL 11.2-15.7 HEMATOCRIT (BEAKER) (test hzwm=772) 25.8 % 34.1-44.9 MEAN CORPUSCULAR VOLUME (BEAKER) (test apfi=869) 92.8 fL 79.4-94.8 MEAN CORPUSCULAR HEMOGLOBIN (BEAKER) (test 30.6 pg 25.6-32.2 jbvr=003) MEAN CORPUSCULAR HEMOGLOBIN CONC (BEAKER) (test 32.9 GM/DL 32.2-35.5 qdaz=495) RED CELL DISTRIBUTION WIDTH (BEAKER) (test 18.7 % 11.7-14.4 sumx=293) PLATELET COUNT (BEAKER) (test mlvd=053) 110 K/CU MM 150-450 MEAN PLATELET VOLUME (BEAKER) (test gkci=165) 11.2 fL 9.4-12.3 NUCLEATED RED BLOOD CELLS (BEAKER) (test 0 /100 WBC 0-0 jeiw=257) NEUTROPHILS RELATIVE PERCENT (BEAKER) (test 92 % zwmq=831) LYMPHOCYTES RELATIVE PERCENT (BEAKER) (test 4 % elgo=660) MONOCYTES RELATIVE PERCENT (BEAKER) (test 3 % slwn=252) EOSINOPHILS RELATIVE PERCENT (BEAKER) (test 1 % hxjs=132) BASOPHILS RELATIVE PERCENT (BEAKER) (test 0 % uyyd=269) NEUTROPHILS ABSOLUTE COUNT (BEAKER) (test 3.69 K/ L 1.56-6.13 sbfs=622) LYMPHOCYTES ABSOLUTE COUNT (BEAKER) (test 0.14 K/ L 1.18-3.74 tvyw=827) MONOCYTES ABSOLUTE COUNT (BEAKER) (test 0.11 K/ L 0.24-0.36 lcaq=203) EOSINOPHILS ABSOLUTE COUNT (BEAKER) (test 0.03 K/ L 0.04-0.36 pfxy=227) BASOPHILS ABSOLUTE COUNT (BEAKER) (test 0.01 K/ L 0.01-0.08 wtqo=613) IMMATURE GRANULOCYTES-RELATIVE PERCENT (BEAKER) 1 % 0-1 (test ojyf=1074) ANTI-NUCLEAR ANTIBODY (LÓPEZ)2017-11-29 09:50:00 Test Item Value Reference Range Comments ANTI-NUCLEAR ANTIBODY (LÓPEZ) (BEAKER) (test Positive Negative kbpt=325) LÓPEZ TITER AND [id number] 09:50:00 Test Item Value Reference Range Comments LÓPEZ TITER (BEAKER) (test zvti=0804) :40 LÓPEZ PATTERN (BEAKER) (test xntw=7309) Speckled [id number] 15:34:00 Test Item Value Reference Range Comments FERRITIN (BEAKER) (test rgsn=963) 237 ng/mL 5-275 HEPATITIS B SURFACE [id number] 14:54:00 Test Item Value Reference Range Comments HEPATITIS B SURFACE ANTIBODY (BEAKER) (test < mIU/mL <8.0 dfje=351) HEPATITIS B SURFACE [id number] 14:49:00 Test Item Value Reference Range Comments HEPATITIS B SURFACE ANTIGEN (2) (BEAKER) (test Nonreactive Nonreactive dkro=5311) HEPATITIS C [id number] 14:49:00 Test Item Value Reference Range Comments HEPATITIS C ANTIBODY (BEAKER) (test qezh=068) Nonreactive Nonreactive ALPHA FETOPROTEIN (AFP), TUMOR [id number] 14:48:00 Test Item Value Reference Range Comments ALPHA-FETOPROTEIN (BEAKER) (test skpn=9601) 4.9 ng/mL <10.0 HEPATITIS B CORE ANTIBODY, [id number] 14:48:00 Test Item Value Reference Range Comments HEPATITIS B CORE TOTAL ANTIBODY (BEAKER) (test Nonreactive Nonreactive xpzx=497) HEPATITIS A ANTIBODY, [id number] 14:48:00 Test Item Value Reference Range Comments HEPATITIS A IGG ANTIBODY (BEAKER) (test Nonreactive Nonreactive tmfc=0903) CBC W/PLT COUNT & AUTO [id number] 14:30:00 Test Item Value Reference Range Comments WHITE BLOOD CELL COUNT (BEAKER) (test knse=344) 5.2 K/ L 3.5-10.5 RED BLOOD CELL COUNT (BEAKER) (test alrl=241) 2.96 M/ L 3.93-5.22 HEMOGLOBIN (BEAKER) (test apdg=281) 9.7 GM/DL 11.2-15.7 HEMATOCRIT (BEAKER) (test lfsj=952) 31.0 % 34.1-44.9 MEAN CORPUSCULAR VOLUME (BEAKER) (test cauf=246) 104.7 fL 79.4-94.8 MEAN CORPUSCULAR HEMOGLOBIN (BEAKER) (test 32.8 pg 25.6-32.2 rgdo=502) MEAN CORPUSCULAR HEMOGLOBIN CONC (BEAKER) (test 31.3 GM/DL 32.2-35.5 cpet=294) RED CELL DISTRIBUTION WIDTH (BEAKER) (test 17.8 % 11.7-14.4 diqp=880) PLATELET COUNT (BEAKER) (test bvpm=690) 92 K/CU MM 150-450 MEAN PLATELET VOLUME (BEAKER) (test bmih=400) 10.3 fL 9.4-12.3 NUCLEATED RED BLOOD CELLS (BEAKER) (test 0 /100 WBC 0-0 zvzq=577) NEUTROPHILS RELATIVE PERCENT (BEAKER) (test 81 % vran=940) LYMPHOCYTES RELATIVE PERCENT (BEAKER) (test 6 % pgya=231) MONOCYTES RELATIVE PERCENT (BEAKER) (test 9 % fkay=854) EOSINOPHILS RELATIVE PERCENT (BEAKER) (test 3 % nhuq=288) BASOPHILS RELATIVE PERCENT (BEAKER) (test 1 % vfol=670) NEUTROPHILS ABSOLUTE COUNT (BEAKER) (test 4.23 K/ L 1.56-6.13 hdzh=143) LYMPHOCYTES ABSOLUTE COUNT (BEAKER) (test 0.29 K/ L 1.18-3.74 xykm=229) MONOCYTES ABSOLUTE COUNT (BEAKER) (test mooe=250) 0.49 K/ L 0.24-0.36 EOSINOPHILS ABSOLUTE COUNT (BEAKER) (test 0.14 K/ L 0.04-0.36 suva=604) BASOPHILS ABSOLUTE COUNT (BEAKER) (test ykxy=117) 0.06 K/ L 0.01-0.08 IMMATURE GRANULOCYTES-RELATIVE PERCENT (BEAKER) 0 % 0-1 (test iqxi=4536) COMPREHENSIVE METABOLIC [id number] 14:28:00 Test Item Value Reference Range Comments TOTAL PROTEIN (BEAKER) 7.6 gm/dL 6.0-8.3 (test oxea=268) ALBUMIN (BEAKER) (test 3.6 g/dL 3.5-5.0 gamc=9790) ALKALINE PHOSPHATASE 144 U/L 40-150 (BEAKER) (test mhaw=989) BILIRUBIN TOTAL (BEAKER) 1.1 mg/dL 0.2-1.2 (test oydh=778) SODIUM (BEAKER) (test 135 meq/L 136-145 qvil=652) POTASSIUM (BEAKER) (test 3.6 meq/L 3.5-5.1 aifq=553) CHLORIDE (BEAKER) (test 103 meq/L 98-107 kwlb=690) CO2 (BEAKER) (test 22 meq/L 22-29 lfgx=462) BLOOD UREA NITROGEN 16 mg/dL 7-21 (BEAKER) (test mouq=777) CREATININE (BEAKER) (test 1.82 mg/dL 0.57-1.25 wqmt=067) GLUCOSE RANDOM (BEAKER) 102 mg/dL 70-105 (test dyvf=972) CALCIUM (BEAKER) (test 9.1 mg/dL 8.4-10.2 focw=751) AST (SGOT) (BEAKER) (test 39 U/L 5-34 nkvz=552) ALT (SGPT) (BEAKER) (test 14 U/L 6-55 vewc=017) EGFR (BEAKER) (test 30 mL/min/1.73 sq m ESTIMATED GFR IS NOT fbcs=9380) ACCURATE CREATININE CLEARANCE IN PREDICTING GLOMERULAR FILTRATION RATE. ESTIMATED GFR IS NOT APPLICABLE FOR DIALYSIS PATIENTS. BILIRUBIN, [id number] 14:28:00 Test Item Value Reference Range Comments BILIRUBIN DIRECT (BEAKER) (test pdbl=200) 0.6 mg/dL 0.1-0.5 IRON, TIBC, % SAT. (WITHOUT FERRITIN)2017-11-27 14:26:00 Test Item Value Reference Range Comments IRON (BEAKER) (test hhyq=611) 37 ug/dL 40-160 TOTAL IRON BINDING CAPACITY (BEAKER) (test 219 ug/dL 250-450 czmw=694) IRON % SATURATION (2) (BEAKER) (test lxkt=9803) 17 % 20-55 [id number] 14:25:00 Test Item Value Reference Range Comments ALPHA-1 ANTITRYPSIN (BEAKER) (test jaja=552) 151.80 mg/dL 90.00-200.00 PROTHROMBIN [id number] 14:03:00 Test Item Value Reference Range Comments PROTIME (BEAKER) (test eflh=533) 17.2 seconds 11.7-14.7 INR (BEAKER) (test gzsv=687) 1.4 <=5.9 RECOMMENDED COUMADIN/WARFARIN INR THERAPY RANGESSTANDARD DOSE: 2.0 - 3.0 Includes: PROPHYLAXIS forvenous thrombosis, systemic embolization; TREATMENT for venous thrombosis and/or pulmonary embolus.HIGH RISK: Target INR is 2.5-3.5 for patients with mechanical heart valves.
[2018-09-23 17:51] LABS: Absolute Lymphocytes (CBC) 0.3 K/uL (0.7-4.9); Absolute Monocytes 0.8 K/uL (0.1-1.3); Absolute Neutrophil 6.3 K/uL (1.8-8.0); Basophils % 1.1 % (0-1.3); Eosinophils % 0.4 % (0-4.4); Hematocrit 21.8 % (36.0-45.0); Lymphocytes % 3.8 % (15.3-44.8); MPV 9.5 fL (7.6-11.3); Monocytes % 11.1 % (3.3-12.3); RBC Red Blood Cell Count 2.31 M/uL (3.86-4.86)
[2018-09-23] MEDS ORDERED: NA CHLORIDE 0.9% 1,000 ML ONE (17:56)
--- NOTE | 2018-09-23 18:44 | EDPHYS ---
Physician Documentation [facility] Name: Amauri Miller Age: 48 yrs Sex: Female : 1970 Arrival Date: 09/23/2018 Time: 16:51 Bed 24 Private MD: ED Physician Josh Guevara HPI: 09/23 18:38 This 48 yrs old Female presents to ER via EMS with complaints of vomiting snw blood. 18:38 The patient presents to the emergency department vomiting blood, with rectal bleeding. snw Onset: The symptoms/episode began/occurred suddenly, today. Abdominal pain: described as vague,\E\. Modifying factors: The symptoms are alleviated by nothing. Severity of symptoms: At their worst the symptoms were moderate. The patient has experienced similar episodes in the past, chronically. The patient has been recently seen by a physician: with similar presenting complaints. [employer]: 16:55 LMP N/A - Post-menopause ca1 Historical: - Allergies: 16:55 No Known Allergies; ca1 - PMHx: 16:55 Anemia; Cirrhosis; esophageal varices; Hernia; second one, not repaired; possible htn; ca1 - PSHx: 16:55 Hernia Surgery; ca1 - Immunization history:: Flu vaccine is not up to date. - Social history:: Smoking status: Patient uses tobacco products, denies chronic smoking, but will smoke occasionally. - Ebola Screening: : Patient negative for fever greater than or equal to 101.5 degrees Fahrenheit, and additional compatible Ebola Virus Disease symptoms Patient denies exposure to infectious person Patient denies travel to an Ebola-affected area in the 21 days before illness onset. ROS: 18:38 Constitutional: Negative for fever, chills, and weight loss, Eyes: Negative for injury, snw pain, redness, and discharge, ENT: Negative for injury, pain, and discharge, Neck: Negative for injury, pain, and swelling, Cardiovascular: Negative for chest pain, palpitations, and edema, Respiratory: Negative for shortness of breath, cough, wheezing, and pleuritic chest pain. 18:38 Back: Negative for injury and pain, : Negative for injury, bleeding, discharge, and swelling, MS/Extremity: Negative for injury and deformity, Skin: Negative for injury, rash, and discoloration, Neuro: Negative for headache, weakness, numbness, tingling, and seizure. 18:38 Abdomen/GI: Positive for nausea and vomiting, hematemesis, black/tarry stool. Exam: 18:31 Head/Face: Normocephalic, atraumatic. Eyes: Pupils equal round and reactive to light, snw extra-ocular motions intact. Lids and lashes normal. Conjunctiva and sclera are non-icteric and not injected. Cornea within normal limits. Periorbital areas with no swelling, redness, or edema. ENT: Nares patent. No nasal discharge, no septal abnormalities noted. Tympanic membranes are normal and external auditory canals are clear. Oropharynx with no redness, swelling, or masses, exudates, or evidence of obstruction, uvula midline. Mucous membranes moist. Neck: Trachea midline, no thyromegaly or masses palpated, and no cervical lymphadenopathy. Supple, full range of motion without nuchal rigidity, or vertebral point tenderness. No Meningismus. Chest/axilla: Normal chest wall appearance and motion. Nontender with no deformity. No lesions are appreciated. 18:31 Respiratory: Lungs have equal breath sounds bilaterally, clear to auscultation and percussion. No rales, rhonchi or wheezes noted. No increased work of breathing, no retractions or nasal flaring. 18:31 Back: No spinal tenderness. No costovertebral tenderness. Full range of motion. 18:31 Constitutional: The patient appears alert, awake, febrile, uncomfortable, malnourished with severe ascites, paracentesis last week (700ml) 18:31 Cardiovascular: Rate: tachycardic, Heart sounds: normal. 18:31 Abdomen/GI: Inspection: gravid appearance, is noted, Bowel sounds: normal, Palpation: mild abdominal tenderness, organomegaly is appreciated, +alcoholic cirrhosis. 18:31 Skin: Appearance: Color: dusky. Vital Signs: 16:55 BP 105 / 71; Pulse 112; Resp 18; Temp 100; Pulse Ox 100% on R/A; Weight 57.61 kg; ca1 Height 5 ft. 6 in. (167.64 cm); Pain 10/10; 18:00 BP 110 / 70; Pulse 110; Resp 20; Temp 99.8(O); Pulse Ox 100% on R/A; Pain 3/10; ls4 19:00 BP 104 / 69; Pulse 117; Resp 22; Pulse Ox 100% on R/A; Pain 4/10; ls4 20:00 BP 108 / 74; Pulse 116; Resp 22; Pulse Ox 100% on R/A; Pain 3/10; ls4 16:55 Body Mass Index 20.50 (57.61 kg, 167.64 cm) ca1 MDM: 18:04 Patient medically screened. snw 18:29 Data reviewed: vital signs, nurses notes. Data interpreted: Pulse oximetry: on room air snw is 100 %. Interpretation: normal. Counseling: I had a detailed discussion with the patient and/or guardian regarding: the historical points, exam findings, and any diagnostic results supporting the discharge/admit diagnosis, lab results, the need for further work-up and treatment in the hospital. Physician consultation: Tray Leigh MD was called at 18:29, was contacted at 18:29, regarding consult, Rocephin 1gm/IV Q 12 hour. 18:45 Physician consultation: Charanjit Washington DO was called at 18:46, was contacted at 18:45, snw regarding admission, to the ICU. 09/23 17:14 Order name: Basic Metabolic Panel [facility] 09/23 17:14 Order name: CBC with Diff; Complete Time: 18:08 snw 09/23 17:14 Order name: Creatinine for Radiology; Complete Time: 18:08 snw 09/23 17:14 Order name: Hepatic Function snw 09/23 17:14 Order name: Lipase snw 09/23 17:14 Order name: AMMONIA; Complete Time: 18:08 snw 09/23 17:14 Order name: TS sn 09/23 17:19 Order name: Urine Dipstick--Ancillary (enter results); Complete Time: 19:49 bd 09/23 18:14 Order name: ETOH Level; Complete Time: 19:09 snw 09/23 18:14 Order name: PT-INR; Complete Time: 18:59 snw 09/23 18:14 Order name: Ptt, Activated; Complete Time: 18:59 snw 09/23 18:44 Order name: Bb Add On snw 09/23 19:19 Order name: Packed RBC Leukored -1 EDID 09/23 17:14 Order name: IV Saline Lock; Complete Time: 17:34 snw 09/23 17:14 Order name: Labs collected and sent; Complete Time: 17:34 snw Administered Medications: 17:43 Drug: NS 0.9% 1000 ml Route: IV; Rate: 75 ml/hr; Site: right forearm; ls4 21:49 Follow up: IV Status: Completed infusion; IV Intake: 300ml ls4 18:38 Drug: Rocephin - (cefTRIAXone) 1 grams Route: IVPB; Infused Over: 10 mins; Site: right ls4 forearm; 19:10 Follow up: IV Status: Completed infusion; IV Intake: 10ml ls4 19:14 Drug: ProTONIX 8 mg/hr Route: IV; Rate: 25 ml/hr; Site: right forearm; ls4 21:48 Follow up: IV Status: Infusion continued upon admission ls4 20:54 Drug: Octreotide Infusion (50 mcg/hr) - (Octreotide 500 mcg, NS 0.9% 500 ml) Route: IV; ls4 Rate: 50 ml/hr; Site: left forearm; 21:48 Follow up: IV Status: Infusion continued upon admission ls4 21:45 Not Given (Other Intervention Used; other ): Octreotide 100 mcg IV at calculated rate ls4 once Disposition: 09/24 07:01 Co-signature as Attending Physician, Josh Guevara MD I agree with the assessment and bro plan of care. Disposition: 09/23/18 18:42 Hospitalization ordered by Kamar Zapata for Inpatient Admission. Preliminary diagnosis are Alcoholic cirrhosis of liver with ascites, Gastrointestinal hemorrhage, unspecified. - Bed requested for Intensive Care Unit. - Status is Inpatient Admission. ls4 - Condition is Fair. - Problem is an acute exacerbation. - Symptoms have worsened. UTI on Admission? No Signatures: Dispatcher [employer] EDID Josi Ruiz RN RN mw Anderson, Corey, MD MD cha Therrien, Shelly, SUPREME COURT JUSTICE-C SUPREME [facility] JUSTICE-Csnw Joanne Torres RN RN ls4 Tootie Mariee RN RN ca1 Corrections: (The following items were deleted from the chart) 09/23 20:17 18:42 Hospitalization Ordered by Kamar Zapata MD for Inpatient Admission. Preliminary diagnosis is Alcoholic cirrhosis of liver with ascites; Gastrointestinal hemorrhage, unspecified. Bed requested for Intensive Care Unit. Status is Inpatient Admission. Condition is Fair. Problem is an acute exacerbation. Symptoms have worsened. UTI on Admission? No. snw 21:47 20:17 09/23/2018 18:42 Hospitalization Ordered by Kamar Zapata MD for Inpatient ls4 Admission. Preliminary diagnosis is Alcoholic cirrhosis of liver with ascites; Gastrointestinal hemorrhage, unspecified. Bed requested for Intensive Care Unit. Status is Inpatient Admission. Condition is Fair. Problem is an acute exacerbation. Symptoms have worsened. UTI on Admission? No. mw
--- NOTE | 2018-09-23 18:44 | ER ---
Nurse's Notes [facility] Name: Amauri Miller Age: 48 yrs Sex: Female : 1970 Arrival Date: 09/23/2018 Time: 16:51 Bed 24 Private MD: Diagnosis: Alcoholic cirrhosis of liver with ascites;Gastrointestinal hemorrhage, unspecified Presentation: 09/23 16:52 Presenting complaint: EMS states: pt has Liver Cirrhosis complains of abdominal pain, ca1 vomiting of blood this morning and black tarry stool. Transition of care: patient was not received from another setting of care. Onset of symptoms was September 23, 2018. Risk Assessment: Do you want to hurt yourself or someone else? Patient reports no desire to harm self or others. Initial Sepsis Screen: Does the patient meet any 2 criteria? HR > 90 bpm. Does the patient have a suspected source of infection? No. Patient's initial sepsis screen is negative. Care prior to arrival: IV initiated. 22 GA, in the left forearm, Glucose check: 95. 16:52 Method Of Arrival: EMS: [facility] ca1 16:52 Acuity: CASI 3 ca1 Triage Assessment: 16:55 General: Appears in no apparent distress. ill, Behavior is calm, cooperative, ca1 appropriate for age. Pain: Complains of pain in abdomen Pain currently is 10 out of 10 on a pain scale. 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 - Social history:: Smoking status: Patient uses tobacco products, denies chronic smoking, but will smoke occasionally. - Ebola Screening: : Patient negative for fever greater than or equal to 101.5 degrees Fahrenheit, and additional compatible Ebola Virus Disease symptoms Patient denies exposure to infectious person Patient denies travel to an Ebola-affected area in the 21 days before illness onset. Screenin:59 Abuse screen: Denies threats or abuse. Denies injuries from another. Nutritional ls4 screening: No deficits noted. Tuberculosis screening: No symptoms or risk factors identified. Fall Risk None identified. Assessment: 16:57 General: Appears ill, Behavior is calm, cooperative. Neuro: Level of Consciousness is ls4 awake, alert, obeys commands, Oriented to person, place, time, situation. Cardiovascular: Capillary refill < 3 seconds Pulses are 2+ in right radial artery and left radial artery. Respiratory: Airway is patent Respiratory effort is even, unlabored, Breath sounds are clear bilaterally. GI: Abdomen is round distended, noted to have ascites, Bowel sounds diminished in right lower quadrant and abdomen diffusely Reports bloody stool, vomiting. : No deficits noted. 18:00 Reassessment: Patient appears in no apparent distress at this time. Patient and/or ls4 family updated on plan of care and expected duration. Pain level reassessed. Patient is alert, oriented x 3, equal unlabored respirations, skin warm/dry/pink. 19:00 Reassessment: No changes from previously documented assessment. Patient and/or family ls4 updated on plan of care and expected duration. Pain level reassessed. Patient is alert, oriented x 3, equal unlabored respirations, skin warm/dry/pink. 20:00 Reassessment: No changes from previously documented assessment. Patient and/or family ls4 updated on plan of care and expected duration. Pain level reassessed. Patient is alert, oriented x 3, equal unlabored respirations, skin warm/dry/pink. 21:51 Reassessment: No changes from previously documented assessment. Patient and/or family ls4 updated on plan of care and expected duration. Pain level reassessed. Patient is alert, oriented x 3, equal unlabored respirations, skin warm/dry/pink. pt transferred to ICU 7, bedside report to Mohsen. Questions answered. . Vital Signs: 16:55 BP 105 / 71; Pulse 112; Resp 18; Temp 100; Pulse Ox 100% on R/A; Weight 57.61 kg; ca1 Height 5 ft. 6 in. (167.64 cm); Pain 10/10; 18:00 BP 110 / 70; Pulse 110; Resp 20; Temp 99.8(O); Pulse Ox 100% on R/A; Pain 3/10; ls4 19:00 BP 104 / 69; Pulse 117; Resp 22; Pulse Ox 100% on R/A; Pain 4/10; ls4 20:00 BP 108 / 74; Pulse 116; Resp 22; Pulse Ox 100% on R/A; Pain 3/10; ls4 16:55 Body Mass Index 20.50 (57.61 kg, 167.64 cm) ca1 ED Course: 16:51 Patient arrived in ED. ca1 16:54 Triage completed. ca1 16:55 Joanne Torres, RN is Primary Nurse. ls4 16:57 Arm band placed on. ls4 16:59 Bed in low position. Call light in reach. Side rails up X 1. gasket notcher on. Pulse ls4 ox on. NIBP on. Warm blanket given. 17:13 Rebekah Canchola FNP-C is PHCP. snw 17:13 Josh Guevara MD is Attending Physician. snw 18:02 No provider procedures requiring assistance completed. Inserted saline lock: 24 gauge ls4 in left forearm, using aseptic technique. 18:02 Initial lab(s) drawn, by me, sent to lab. ls4 18:41 Kamar Zapata MD is Hospitalizing Provider. snw 21:44 Patient admitted, IV remains in place. No redness/swelling at site. ls4 Administered Medications: 17:43 Drug: NS 0.9% 1000 ml Route: IV; Rate: 75 ml/hr; Site: right forearm; ls4 21:49 Follow up: IV Status: Completed infusion; IV Intake: 300ml ls4 18:38 Drug: Rocephin - (cefTRIAXone) 1 grams Route: IVPB; Infused Over: 10 mins; Site: right ls4 forearm; 19:10 Follow up: IV Status: Completed infusion; IV Intake: 10ml ls4 19:14 Drug: ProTONIX 8 mg/hr Route: IV; Rate: 25 ml/hr; Site: right forearm; ls4 21:48 Follow up: IV Status: Infusion continued upon admission ls4 20:54 Drug: Octreotide Infusion (50 mcg/hr) - (Octreotide 500 mcg, NS 0.9% 500 ml) Route: IV; ls4 Rate: 50 ml/hr; Site: left forearm; 21:48 Follow up: IV Status: Infusion continued upon admission ls4 21:45 Not Given (Other Intervention Used; other ): Octreotide 100 mcg IV at calculated rate ls4 once Intake: 19:10 IV: 10ml; Total: 10ml. ls4 21:49 IV: 300ml; Total: 310ml. ls4 Outcome: 18:42 Decision to Hospitalize by Provider. snw 20:32 Admitted to ICU accompanied by nurse, accompanied by tech, room 7, with chart. ls4 20:40 Admitted to ICU Report called to Mohsen HARRIS ls4 20:40 Condition: unchanged 21:47 Patient left the ED. ls4 Signatures: Rebekah Canchola, GROCERY CLERK SELLING-C GROCERY CLERK SELLING-Csnw Joanne Torres RN RN ls4 Tootie Mariee RN RN ca1 Corrections: (The following items were deleted from the chart) 16:58 16:55 LMP N/A - Pre-menarche ca1 ca1
[2018-09-23] MEDS ORDERED: CEFTRIAXONE/SWI 1gm 1 GM/10 ML SYR ONE (18:48)
[2018-09-23 18:50] LABS: Protime INR 1.32
[2018-09-23] MEDS: PANTOPRAZOLE INJ 80 MG in NA CHLORIDE 0.9% 250 ML IV SCH (19:00)
[2018-09-23] MEDS ORDERED: NA CHLORIDE 0.9% 500 ML ONE ×2 (19:04→20:51)
[2018-09-23 19:46] LABS: Urine Blood NEGATIVE (NEG); Urine Glucose NEGATIVE (NEG); Urine Protein NEGATIVE (NEG)
--- NOTE | 2018-09-23 20:27 | P.HP ---
Certification for Inpatient Patient admitted to: Inpatient With expected LOS: >2 Midnights Practitioner: I am a practitioner with admitting privileges, knowledge of patient current condition, hospital course, and medical plan of care. Services: Services provided to patient in accordance with Admission requirements found in Title 42 Section 412.3 of the Code of Federal Regulations Patient History Date of Service: 09/23/18 Reason for admission: GIB History of Present Illness: Ms Miller is a 48 years old woman with history of alcoholic cirrhosis requiring recurrent paracentesis done every 2 weeks, last one 1 week ago, history of esophageal varices, states that got depressed yesterday and drank about 1 pint of vodka. After that, she start feeling severe abdominal pain, associated with bloody vomiting and black tarry stools. Last drink though was this morning. At arrival her BP was 105/71 HR 112, lab shows Hgb 7.5 mg/dl. Temp 100.0F. Chemestry is still pending. Allergies No Known Allergies Allergy (Verified 09/10/18 18:25) Home medications list reviewed: Yes Home Medications: Diphenhydramine [Benadryl*] 2 tab PO BEDTIME PRN 04/06/18 Folic Acid 1 mg PO DAILY 04/06/18 Lactulose [Cephulac*] 15 gm PO DAILY 04/06/18 Ondansetron HCl [Zofran] 4 mg PO Q8H PRN 04/06/18 Rifaximin [Xifaxan] 550 mg PO BID 04/06/18 Thiamine HCl [Vitamin B-1*] 100 mg PO DAILY 04/06/18 Melatonin/Pyridoxine [Melatonin 5 mg Tablet] 10 mg PO BEDTIME 09/10/18 Potassium Gluconate [Potassium] 99 mg PO DAILY 09/10/18 Pyridoxine [Vitamin B-6*] 100 mg PO DAILY 09/10/18 Spironolactone 100 mg PO DAILY 09/10/18 Trazodone [Desyrel*] 50 mg PO BEDTIME MDD 1 09/10/18 Midodrine HCl 10 mg PO TID #90 tablet 09/15/18 Pantoprazole [Protonix Tab*] 40 mg PO BIDAC #60 tab 09/15/18 - Past Medical/Surgical History Diabetic: No -: cirrhosis -: etoh abuse -: abdominal distention -: paracentesis -: GIB -: anemia -: varices -: hernia -: Multiple paracentesis -: Hernia repair -: Esophageal banding with multiple EGD's Psychosocial/ Personal History: Patient is single. She has 3 children. She does not work. - Family History Father -: Liver disease Notes: patient adopted, does not any history of her parents - Social History Smoking Status: Current every day smoker Counseled patient to stop smoking for: less than 10 minutes Alcohol use: Yes CD- Drugs: No Caffeine use: Yes Place of Residence: Home Review of Systems 10-point ROS is otherwise unremarkable Physical Examination - Physical Exam General: Alert, In no apparent distress HEENT: Atraumatic, PERRLA, Mucous membr. moist/pink, EOMI, Sclerae nonicteric Neck: Supple, 2+ carotid pulse no bruit, No LAD, Without JVD or thyroid abnormality Respiratory: Clear to auscultation bilaterally, Normal air movement Cardiovascular: Regular rate/rhythm, Normal S1 S2 Gastrointestinal: Hypoactive, Distended, Ascites, Tenderness Musculoskeletal: No tenderness Integumentary: No rashes Neurological: Normal speech, Normal strength at 5/5 x4 extr, Normal tone, Normal affect Lymphatics: No axilla or inguinal lymphadenopathy - Studies Laboratory Data (last 24 hrs) 09/23/18 18:31: PT 15.4 H, INR 1.32, APTT 31.3 09/23/18 17:19: Creatinine 1.07 09/23/18 17:19: WBC 7.5 D, Hgb 7.5 L*, Hct 21.8 L, Plt Count 191 D Assessment and Plan - Problems (Diagnosis) (1) Acute blood loss anemia Onset Date: 04/25/18 Current Visit: No Status: Acute (2) Alcohol abuse Onset Date: 09/11/18 Current Visit: No Status: Acute (3) Gastrointestinal hemorrhage Onset Date: 09/11/18 Current Visit: No Status: Acute Qualifiers: GI bleed type/associated pathology: gastrointestinal hemorrhage with hematemesis Qualified Code(s): K92.0 - Hematemesis (4) Tobacco abuse Onset Date: 09/11/18 Current Visit: No Status: Acute (5) Alcoholic cirrhosis Onset Date: 09/11/18 Current Visit: No Status: Chronic Qualifiers: Ascites presence: with ascites Qualified Code(s): K70.31 - Alcoholic cirrhosis of liver with ascites (6) Ascites Onset Date: 09/11/18 Current Visit: No Status: Chronic Qualifiers: Ascites type: due to alcoholic cirrhosis Qualified Code(s): K70.31 - Alcoholic cirrhosis of liver with ascites (7) History of esophageal varices Current Visit: No Status: Chronic - Plan The patient will be admitted to ICU for close monitoring, check serial Hgb/hct, will order protonix and octreotide continue infusion. Consult Dr eLigh for EGD. Will potentially transfuse PRBC's if is needed. - Advance Directives Does patient have a Living Will: No Does patient have a Durable POA for Healthcare: No - Code Status/Comfort Care Code Status Assessed: Yes Code Status: Full Code
[2018-09-23] MEDS ORDERED: OCTREOTIDE ACETATE 100 MCG/ML ONE (20:38)
[2018-09-23] MEDS ORDERED: OCTREOTIDE ACETATE 500 MCG/ML ONE (20:51)
[2018-09-23] MEDS ORDERED: ONDANSETRON 4 MG/2 ML VIAL IV PRN (21:01)
[2018-09-23 21:50] LABS: Albumin 3.7 g/dL (3.4-5.0); Bilirubin Direct 0.5 mg/dL (0-0.2); Bilirubin Total 0.9 mg/dL (0.2-1.0); Potassium 3.2 mmol/L (3.5-5.1); Protein, Total 6.4 g/dL (6.4-8.2)
[2018-09-23] MEDS: NA CHLORIDE 0.9% 1,000 ML IV SCH (22:39)
[2018-09-23] MEDS: OCTREOTIDE 500 MCG in NA CHLORIDE 0.9% 500 ML IV SCH (22:39)
[2018-09-23] MEDS ORDERED: FENTANYL CITR 100 MCG/2 ML IV ONE (23:15)
[2018-09-24] MEDS: NA CHLORIDE 0.9% 1,000 ML IV SCH ×2 (02:21→17:01)
[2018-09-24] MEDS ORDERED: PANTOPRAZOLE 40 MG INJ ONE (02:25)
[2018-09-24] MEDS ORDERED: NA CHLORIDE 0.9% 250 ML ONE (02:26)
[2018-09-24] MEDS: PANTOPRAZOLE INJ 80 MG in NA CHLORIDE 0.9% 250 ML IV SCH ×3 (04:51→17:44)
[2018-09-24 05:28] LABS: Absolute Lymphocytes (CBC) 0.3 K/uL (0.7-4.9); Absolute Monocytes 0.6 K/uL (0.1-1.3); Absolute Neutrophil 4.2 K/uL (1.8-8.0); Basophils % 1.5 % (0-1.3); Eosinophils % 3.1 % (0-4.4); Hematocrit 21.3 % (36.0-45.0); Lymphocytes % 6.4 % (15.3-44.8); MPV 9.1 fL (7.6-11.3); Monocytes % 10.9 % (3.3-12.3); RBC Red Blood Cell Count 2.35 M/uL (3.86-4.86)
[2018-09-24 05:41] LABS: Potassium 3.1 mmol/L (3.5-5.1)
[2018-09-24] MEDS: KCL 20 MEQ/100 mL IVPB 20 MEQ/100 ML BAG IV SCH ×2 (05:59→08:00)
[2018-09-24] MEDS ORDERED: NA CHLORIDE 0.9% 250 ML IV SCH (06:00)
[2018-09-24 06:17] LABS: Anisocytosis 1+; Blood Morphology Comment NOTED (NOT SEEN); Platelet Estimate ADEQ
[2018-09-24] MEDS: OCTREOTIDE 500 MCG in NA CHLORIDE 0.9% 500 ML IV SCH ×3 (07:01→17:44)
[2018-09-24] MEDS ORDERED: CEFTRIAXONE 1 GM/NS 50 ML 1 GM/50 ML BAG IV SCH (09:00)
[2018-09-24] MEDS: CEFTRIAXONE/SWI 1gm 1 GM/10 ML SYR IV SCH (09:35)
[2018-09-24] MEDS ORDERED: POTASSIUM 25 MEQ EFFERV TAB PO ONE (10:25)
[2018-09-24] MEDS: LACTULOSE 20 GM/30 ML UCUP PO SCH ×3 (11:44→20:43)
[2018-09-24] MEDS: FOLIC ACID 1 MG TABLET PO SCH (11:45)
[2018-09-24] MEDS: MIDODRINE HCL 5 MG TABLET PO SCH ×3 (11:45→20:44)
--- NOTE | 2018-09-24 11:50 | RAD REPORT ---
EXAM DESCRIPTION: US - Paracentesis Proc Guidance - 09/24/2018 10:32 am CLINICAL HISTORY: Liver disease with ascites FINDINGS: The risks, benefits and alternatives to the procedure were explained to the patient and in formed consent obtained. The skin and subcutaneous tissues were anesthetized with Lidocaine. Under sonographic guidance an 8 F rench catheter was placed into the right lower quadrant. 12 liters yellow fluid removed and sent to l ab. The patient experienced no immediate complication. IMPRESSION: Paracentesis
[2018-09-24] MEDS ORDERED: ALBUMIN HUMAN 25% 100 ML IV ONE (11:59)
[2018-09-24] MEDS ORDERED: LORazepam 2 MG/ML VIAL IV PRN (14:19)
[2018-09-24 14:57] LABS: Appearance CLEAR (CLEAR); Body Fluid Source OTHER; Body Fluid WBC 4 /mm^3; Color of fluid Yellow (COLORLESS)
--- NOTE | 2018-09-24 15:58 | P.PN ---
Subjective Date of Service: 09/24/18 Primary Care Provider: none Chief Complaint: GIB Subjective: Other (Patient feels better today. No hematemesis or nausea this morning.) Physical Examination - Vital Signs Temperature: 98.7 F Blood Pressure: 99/60 Pulse: 71 Respirations: 12 Pulse Ox (%): 100 - Physical Exam General: Alert, In no apparent distress, Oriented x3, Cooperative HEENT: Atraumatic Neck: Supple Respiratory: Clear to auscultation bilaterally, Normal air movement Cardiovascular: Normal pulses, Regular rate/rhythm Gastrointestinal: Normal bowel sounds, No tenderness, No masses, No rebound, Ascites (Large ascites noted) Musculoskeletal: No tenderness, No warmth Integumentary: No erythema, No warmth, No cyanosis Neurological: Normal speech, Normal strength at 5/5 x4 extr, Normal tone, Normal affect - Studies Laboratory Data (last 24 hrs) 09/23/18 18:31: PT 15.4 H, INR 1.32, APTT 31.3 09/23/18 17:19: Creatinine 1.07 09/23/18 17:19: WBC 7.5 D, Hgb 7.5 L*, Hct 21.8 L, Plt Count 191 D Medications List Reviewed: Yes Assessment & Plan Discharge Plan: Home Plan to discharge in: Greater than 2 days Physician Review Additional Text: Impression: Acute on chronic anemia with acute recurrent upper GI bleed likely related to esophageal varices with history of alcoholic cirrhosis and esophageal varices Advanced ascites with history of multiple recurrent paracentesis Acute on chronic renal failure, stage 3 with hypovolemia Alcohol abuse Tobacco abuse Thrombocytopenia secondary to alcoholic cirrhosis Plan: Acute on chronic anemia with acute recurrent upper GI bleed likely related to esophageal varices with history of alcoholic cirrhosis and esophageal varices : Patient has received 1 unit of blood. Patient will receive another unit. No nausea or vomiting noted. Continue with current medication-Rocephin, Protonix/ octreotide drip, and midodrine. Patient to get paracentesis today. GI plans for EGD tomorrow. Will continue to monitor closely. Advanced ascites with history of multiple recurrent paracentesis: Paracentesis to be done today. Patient to get albumin after paracentesis Acute on chronic renal failure, stage 3 with hypovolemia: Continue to monitor closely. Alcohol abuse: Patient continues to drink alcohol at home. Alcohol cessation addressed in detail. Patient understands the risks and complications with alcohol. Tobacco abuse: Will continue to address lifestyle modification education. May need nicotine patch. Thrombocytopenia secondary to alcoholic cirrhosis: Will monitor closely. Time Spent Managing Pts Care (In Minutes): 55
[2018-09-24 17:26] LABS: Hematocrit 24.8 % (36.0-45.0)
[2018-09-24] MEDS ORDERED: POTASSIUM CL SA 10 MEQ TAB PO ONE (20:22)
[2018-09-24 23:32] LABS: Hematocrit 21.6 % (36.0-45.0)
[2018-09-25 05:15] LABS: Absolute Lymphocytes (CBC) 0.2 K/uL (0.7-4.9); Absolute Monocytes 0.4 K/uL (0.1-1.3); Absolute Neutrophil 2.7 K/uL (1.8-8.0); Basophils % 2.9 % (0-1.3); Eosinophils % 4.1 % (0-4.4); Lymphocytes % 6.5 % (15.3-44.8); MPV 9.1 fL (7.6-11.3); Monocytes % 11.2 % (3.3-12.3); RBC Red Blood Cell Count 2.42 M/uL (3.86-4.86)
[2018-09-25] MEDS: PANTOPRAZOLE INJ 80 MG in NA CHLORIDE 0.9% 250 ML IV SCH ×2 (05:29→13:33)
[2018-09-25] MEDS: OCTREOTIDE 500 MCG in NA CHLORIDE 0.9% 500 ML IV SCH ×2 (05:29→13:34)
[2018-09-25 05:36] LABS: Albumin 3.8 g/dL (3.4-5.0); Protein, Total 5.9 g/dL (6.4-8.2)
[2018-09-25] MEDS ORDERED: THIAMINE 200 MG/2 ML INJ IVP SCH (09:00)
[2018-09-25] MEDS: FOLIC ACID 1 MG TABLET PO SCH (09:03)
[2018-09-25] MEDS: MIDODRINE HCL 5 MG TABLET PO SCH ×3 (09:04→20:12)
[2018-09-25] MEDS: LACTULOSE 20 GM/30 ML UCUP PO SCH ×3 (09:04→20:12)
[2018-09-25] MEDS: CEFTRIAXONE/SWI 1gm 1 GM/10 ML SYR IV SCH (09:05)
--- NOTE | 2018-09-25 11:36 | P.PN ---
Subjective Date of Service: 09/25/18 Primary Care Provider: none Chief Complaint: GIB Subjective: Improving (Patient reports improvement. No nausea or vomiting noted.) Physical Examination - Vital Signs Temperature: 98.1 F Blood Pressure: 91/54 Pulse: 82 Respirations: 14 Pulse Ox (%): 95 - Physical Exam General: Alert, In no apparent distress, Oriented x3, Cooperative HEENT: Atraumatic Neck: Supple Respiratory: Clear to auscultation bilaterally, Normal air movement Cardiovascular: Normal pulses, Regular rate/rhythm Gastrointestinal: Normal bowel sounds, Soft and benign, Non-distended, No masses , No rebound, No guarding, Ascites (Ascites noted but improved) Musculoskeletal: No tenderness, No warmth Integumentary: No erythema, No warmth, No cyanosis Neurological: Normal speech, Normal strength at 5/5 x4 extr, Normal tone, Normal affect - Studies Medications List Reviewed: Yes Assessment & Plan Discharge Plan: Home Plan to discharge in: 48 Hours Physician Review Additional Text: Impression: Acute on chronic anemia with acute recurrent upper GI bleed likely related to esophageal varices with history of alcoholic cirrhosis and esophageal varices Advanced ascites with history of multiple recurrent paracentesis Acute on chronic renal failure, stage 3 with hypovolemia Alcohol abuse Tobacco abuse Thrombocytopenia secondary to alcoholic cirrhosis Plan: Acute on chronic anemia with acute recurrent upper GI bleed likely related to esophageal varices with history of alcoholic cirrhosis and esophageal varices : Patient has received 2 units of blood. Hemoglobin remained stable. Will monitor closely. Continue with Rocephin, Protonix/Octreotide drip. Patient also on midodrine. Will advance diet. If tolerating diet then will transition patient to the floor. Patient did get the paracentesis yesterday. 12 L removed. Patient much improved. EGD cancel today since the patient is without any nausea/vomiting. Advanced ascites with history of multiple recurrent paracentesis: 12 L removed from abdomen after paracentesis yesterday. Acute on chronic renal failure, stage 3 with hypovolemia: Continue to monitor closely. Alcohol abuse: Patient continues to drink alcohol at home. Alcohol cessation addressed in detail. Patient understands the risks and complications with alcohol. This was readdressed again in detail. Patient understands this in detail. She spoke to family. She has been encouraged to quit. She appears willing to quit. Tobacco abuse: Will continue to address lifestyle modification education. May need nicotine patch. Thrombocytopenia secondary to alcoholic cirrhosis: Will monitor closely. Time Spent Managing Pts Care (In Minutes): 55
[2018-09-25] MEDS ORDERED: DIAZEPAM 10 MG/2 ML INJ SYRINGE ONE (12:02)
[2018-09-25 13:18] LABS: Hematocrit 24.8 % (36.0-45.0)
[2018-09-25] MEDS ORDERED: TRAMADOL HCL 50 MG TAB PO PRN (14:53)
[2018-09-25] MEDS: HYDROCODONE/APAP 7.5/325 MG TAB PO PRN ×2 (15:06→22:24)
--- NOTE | 2018-09-25 18:51 | P.PN ---
Subjective Date of Service: 09/25/18 Primary Care Provider: none Chief Complaint: GIB, ESLD/cirrhosis EtOH, massive ascites Subjective: Improving (Feels much better, planning what she will do with ex- and ex-boyfriend on discharge. No bleeding since admission. EGD with esophageal variceal banding last week with Dr. Solis.) Review of Systems 10-point ROS is otherwise unremarkable General: Weakness, Malaise Physical Examination - Vital Signs Temperature: 98.2 F Blood Pressure: 104/63 Pulse: 86 Respirations: 18 Pulse Ox (%): 100 - Physical Exam General: Alert, In no apparent distress, Oriented x3, Cooperative HEENT: Atraumatic, Normocephalic, PERRLA, EOMI Neck: Supple Respiratory: Normal air movement Cardiovascular: Normal pulses Gastrointestinal: Soft and benign, No tenderness, No rebound, No guarding, Ascites Neurological: Normal speech, Normal strength at 5/5 x4 extr - Studies Medications List Reviewed: Yes Assessment And Plan - Current Problems (Diagnosis) (1) Cirrhosis, alcoholic Current Visit: Yes Status: Acute (2) Acute alcohol intoxication Onset Date: 12/09/17 Current Visit: No Status: Acute (3) Acute on chronic renal failure Onset Date: 09/11/18 Current Visit: No Status: Acute (4) Alcohol abuse Onset Date: 09/11/18 Current Visit: No Status: Acute (5) Gastrointestinal hemorrhage Onset Date: 09/11/18 Current Visit: No Status: Acute Qualifiers: GI bleed type/associated pathology: gastrointestinal hemorrhage with hematemesis Qualified Code(s): K92.0 - Hematemesis (6) Hematemesis Onset Date: 09/11/18 Current Visit: No Status: Acute (7) Hepatic encephalopathy Onset Date: 09/21/15 Current Visit: No Status: Acute (8) Hypotension Onset Date: 09/11/18 Current Visit: No Status: Acute (9) Tobacco abuse Onset Date: 09/11/18 Current Visit: No Status: Acute (10) Alcoholic cirrhosis Onset Date: 09/11/18 Current Visit: No Status: Chronic Qualifiers: Ascites presence: with ascites Qualified Code(s): K70.31 - Alcoholic cirrhosis of liver with ascites (11) Ascites Onset Date: 09/11/18 Current Visit: No Status: Chronic Qualifiers: Ascites type: due to alcoholic cirrhosis Qualified Code(s): K70.31 - Alcoholic cirrhosis of liver with ascites - Plan REC: 1) continue IV Octreotide and Ceftriaxone 2) serial H&Hs with goal hgb 7-8 3) PPI therapy 4) advance diet slowly from CLs to FLs to GI soft low salt 5) AA or other rehab on discharge Physician Review Additional Text: Impression: Acute on chronic anemia with acute recurrent upper GI bleed likely related to esophageal varices with history of alcoholic cirrhosis and esophageal varices Advanced ascites with history of multiple recurrent paracentesis Acute on chronic renal failure, stage 3 with hypovolemia Alcohol abuse Tobacco abuse Thrombocytopenia secondary to alcoholic cirrhosis Plan: Acute on chronic anemia with acute recurrent upper GI bleed likely related to esophageal varices with history of alcoholic cirrhosis and esophageal varices : Patient has received 2 units of blood. Hemoglobin remained stable. Will monitor closely. Continue with Rocephin, Protonix/Octreotide drip. Patient also on midodrine. Will advance diet. If tolerating diet then will transition patient to the floor. Patient did get the paracentesis yesterday. 12 L removed. Patient much improved. EGD cancel today since the patient is without any nausea/vomiting. Advanced ascites with history of multiple recurrent paracentesis: 12 L removed from abdomen after paracentesis yesterday. Acute on chronic renal failure, stage 3 with hypovolemia: Continue to monitor closely. Alcohol abuse: Patient continues to drink alcohol at home. Alcohol cessation addressed in detail. Patient understands the risks and complications with alcohol. This was readdressed again in detail. Patient understands this in detail. She spoke to family. She has been encouraged to quit. She appears willing to quit. Tobacco abuse: Will continue to address lifestyle modification education. May need nicotine patch. Thrombocytopenia secondary to alcoholic cirrhosis: Will monitor closely.
[2018-09-25] MEDS: LORazepam 2 MG/ML VIAL IV PRN (21:10)
[2018-09-26 02:10] LABS: Hematocrit 23.1 % (36.0-45.0)
[2018-09-26] MEDS: PANTOPRAZOLE INJ 80 MG in NA CHLORIDE 0.9% 250 ML IV SCH ×4 (02:11→19:15)
[2018-09-26] MEDS: OCTREOTIDE 500 MCG in NA CHLORIDE 0.9% 500 ML IV SCH ×4 (02:29→19:15)
[2018-09-26 05:14] LABS: Absolute Lymphocytes (CBC) 0.2 K/uL (0.7-4.9); Absolute Monocytes 0.4 K/uL (0.1-1.3); Absolute Neutrophil 2.8 K/uL (1.8-8.0); Basophils % 1.4 % (0-1.3); Eosinophils % 4.6 % (0-4.4); Hematocrit 23.4 % (36.0-45.0); Lymphocytes % 5.6 % (15.3-44.8); Monocytes % 12.2 % (3.3-12.3); RBC Red Blood Cell Count 2.53 M/uL (3.86-4.86)
[2018-09-26] MEDS: LORazepam 2 MG/ML VIAL IV PRN ×3 (05:22→23:53)
[2018-09-26 05:27] LABS: Albumin 3.4 g/dL (3.4-5.0); Potassium 3.9 mmol/L (3.5-5.1); Protein, Total 5.8 g/dL (6.4-8.2)
[2018-09-26 06:52] VITALS: BMI 24.0
[2018-09-26] MEDS ORDERED: POTASSIUM CL SA 10 MEQ TAB PO ONE (07:50)
[2018-09-26] MEDS: LACTULOSE 20 GM/30 ML UCUP PO SCH ×3 (09:31→20:01)
[2018-09-26] MEDS: FUROSEMIDE 20 MG TABLET PO SCH (09:32)
[2018-09-26] MEDS: SPIRONOLACTONE 25 MG TABLET PO SCH (09:32)
[2018-09-26] MEDS: THIAMINE HCL 100 MG TABLET PO SCH (09:33)
[2018-09-26] MEDS: FOLIC ACID 1 MG TABLET PO SCH (09:33)
[2018-09-26] MEDS: CEFTRIAXONE/SWI 1gm 1 GM/10 ML SYR IV SCH (09:33)
[2018-09-26] MEDS: MIDODRINE HCL 5 MG TABLET PO SCH ×3 (09:39→20:01)
--- NOTE | 2018-09-26 15:44 | P.PN ---
Subjective Date of Service: 09/26/18 Primary Care Provider: none Chief Complaint: GIB, ESLD/cirrhosis EtOH, massive ascites Subjective: Improving, Doing well Physical Examination - Vital Signs Temperature: 97.7 F Blood Pressure: 99/62 Pulse: 78 Respirations: 16 Pulse Ox (%): 100 - Physical Exam General: Alert, In no apparent distress, Oriented x3, Cooperative HEENT: Atraumatic Neck: Supple Respiratory: Clear to auscultation bilaterally, Normal air movement Cardiovascular: Normal pulses, Regular rate/rhythm Gastrointestinal: Normal bowel sounds, Soft and benign, Non-distended, No tenderness, No masses, No rebound, No guarding, Ascites Musculoskeletal: No erythema, No tenderness, No warmth Integumentary: No tenderness/swelling, No erythema, No warmth, No cyanosis Neurological: Normal speech, Normal strength at 5/5 x4 extr, Normal tone, Normal affect - Studies Medications List Reviewed: Yes Assessment & Plan Discharge Plan: Home Plan to discharge in: 24 Hours Physician Review Additional Text: Impression: Acute on chronic anemia with acute recurrent upper GI bleed likely related to esophageal varices with history of alcoholic cirrhosis and esophageal varices Advanced ascites with history of multiple recurrent paracentesis Acute on chronic renal failure, stage 3 with hypovolemia Alcohol abuse Tobacco abuse Thrombocytopenia secondary to alcoholic cirrhosis Plan: Acute on chronic anemia with acute recurrent upper GI bleed likely related to esophageal varices with history of alcoholic cirrhosis and esophageal varices status post paracentesis : Patient continues to improve. Will transfer patient to the floor. Will have physical therapy ambulate. Will advance diet. Continue current medications. Anticipate discharge tomorrow. Patient desires to go home. Advanced ascites with history of multiple recurrent paracentesis status post paracentesis: 12 L removed from abdomen after paracentesis the other day. Acute on chronic renal failure, stage 3 with hypovolemia: Continue to monitor closely. Alcohol abuse: Patient continues to drink alcohol at home. Alcohol cessation addressed in detail. Patient understands the risks and complications with alcohol. This was readdressed again in detail. Patient understands this in detail. She spoke to family. She has been encouraged to quit. She appears willing to quit. Tobacco abuse: Will continue to address lifestyle modification education. May need nicotine patch. Thrombocytopenia secondary to alcoholic cirrhosis: Will monitor closely. Time Spent Managing Pts Care (In Minutes): 55
[2018-09-26] MEDS: HYDROCODONE/APAP 7.5/325 MG TAB PO PRN (19:46)
[2018-09-27] MEDS: OCTREOTIDE 500 MCG in NA CHLORIDE 0.9% 500 ML IV SCH ×3 (01:23→15:15)
[2018-09-27] MEDS: PANTOPRAZOLE INJ 80 MG in NA CHLORIDE 0.9% 250 ML IV SCH ×3 (01:24→15:15)
[2018-09-27 05:04] LABS: Absolute Lymphocytes (CBC) 0.2 K/uL (0.7-4.9); Absolute Monocytes 0.4 K/uL (0.1-1.3); Absolute Neutrophil 2.7 K/uL (1.8-8.0); Eosinophils % 5.6 % (0-4.4); Hematocrit 23.2 % (36.0-45.0); Lymphocytes % 6.5 % (15.3-44.8); MPV 8.8 fL (7.6-11.3); Monocytes % 12.1 % (3.3-12.3); RBC Red Blood Cell Count 2.46 M/uL (3.86-4.86)
[2018-09-27 05:27] LABS: Albumin 3.5 g/dL (3.4-5.0); Bilirubin Total 1.1 mg/dL (0.2-1.0); Potassium 3.7 mmol/L (3.5-5.1)
--- NOTE | 2018-09-27 08:21 | P.PN ---
Subjective Date of Service: 09/27/18 Primary Care Provider: none Chief Complaint: GIB, ESLD/cirrhosis EtOH, massive ascites Subjective: Improving (No bleeding since admission. Hgb within goal range 7-8, now at 7.7Feels better. Wants to consider anti-depressant medication. No complaints today. Moved from ICU to floor. Tolerating GI soft diet well.) Review of Systems 10-point ROS is otherwise unremarkable General: Weakness (Improved. ) Physical Examination - Vital Signs Temperature: 99.3 F Blood Pressure: 105/58 Pulse: 79 Respirations: 17 Pulse Ox (%): 95 - Physical Exam General: Alert, In no apparent distress, Oriented x3, Cooperative HEENT: Atraumatic, Normocephalic, PERRLA, EOMI Neck: Supple Respiratory: Diminished (in bases) Cardiovascular: Normal pulses Gastrointestinal: Soft and benign, No tenderness, No rebound, No guarding, Ascites Neurological: Normal speech, Normal strength at 5/5 x4 extr - Studies Medications List Reviewed: Yes Assessment And Plan - Current Problems (Diagnosis) (1) Cirrhosis, alcoholic Current Visit: Yes Status: Acute (2) Acute alcohol intoxication Onset Date: 12/09/17 Current Visit: No Status: Acute (3) Acute on chronic renal failure Onset Date: 09/11/18 Current Visit: No Status: Acute (4) Alcohol abuse Onset Date: 09/11/18 Current Visit: No Status: Acute (5) Gastrointestinal hemorrhage Onset Date: 09/11/18 Current Visit: No Status: Acute Qualifiers: GI bleed type/associated pathology: gastrointestinal hemorrhage with hematemesis Qualified Code(s): K92.0 - Hematemesis (6) Hematemesis Onset Date: 09/11/18 Current Visit: No Status: Acute (7) Hepatic encephalopathy Onset Date: 09/21/15 Current Visit: No Status: Acute (8) Hypotension Onset Date: 09/11/18 Current Visit: No Status: Acute (9) Tobacco abuse Onset Date: 09/11/18 Current Visit: No Status: Acute (10) Alcoholic cirrhosis Onset Date: 09/11/18 Current Visit: No Status: Chronic Qualifiers: Ascites presence: with ascites Qualified Code(s): K70.31 - Alcoholic cirrhosis of liver with ascites (11) Ascites Onset Date: 09/11/18 Current Visit: No Status: Chronic Qualifiers: Ascites type: due to alcoholic cirrhosis Qualified Code(s): K70.31 - Alcoholic cirrhosis of liver with ascites - Plan REC: 1) continue IV Octreotide and Ceftriaxone 2) serial H&Hs with goal hgb 7-8 3) PPI therapy 4) consider anti-depressant medication 5) outpatient EGD with variceal banding in 2 weeks 6) AA or other rehab on discharge Physician Review Additional Text: Impression: Acute on chronic anemia with acute recurrent upper GI bleed likely related to esophageal varices with history of alcoholic cirrhosis and esophageal varices Advanced ascites with history of multiple recurrent paracentesis Acute on chronic renal failure, stage 3 with hypovolemia Alcohol abuse Tobacco abuse Thrombocytopenia secondary to alcoholic cirrhosis Plan: Acute on chronic anemia with acute recurrent upper GI bleed likely related to esophageal varices with history of alcoholic cirrhosis and esophageal varices status post paracentesis : Patient continues to improve. Will transfer patient to the floor. Will have physical therapy ambulate. Will advance diet. Continue current medications. Anticipate discharge tomorrow. Patient desires to go home. Advanced ascites with history of multiple recurrent paracentesis status post paracentesis: 12 L removed from abdomen after paracentesis the other day. Acute on chronic renal failure, stage 3 with hypovolemia: Continue to monitor closely. Alcohol abuse: Patient continues to drink alcohol at home. Alcohol cessation addressed in detail. Patient understands the risks and complications with alcohol. This was readdressed again in detail. Patient understands this in detail. She spoke to family. She has been encouraged to quit. She appears willing to quit. Tobacco abuse: Will continue to address lifestyle modification education. May need nicotine patch. Thrombocytopenia secondary to alcoholic cirrhosis: Will monitor closely.
[2018-09-27] MEDS: MIDODRINE HCL 5 MG TABLET PO SCH ×2 (08:35→14:05)
[2018-09-27] MEDS: SPIRONOLACTONE 25 MG TABLET PO SCH (08:36)
[2018-09-27] MEDS: HYDROCODONE/APAP 7.5/325 MG TAB PO PRN (08:36)
[2018-09-27] MEDS: THIAMINE HCL 100 MG TABLET PO SCH (08:37)
[2018-09-27] MEDS: LACTULOSE 20 GM/30 ML UCUP PO SCH ×2 (08:37→14:04)
[2018-09-27] MEDS: CEFTRIAXONE/SWI 1gm 1 GM/10 ML SYR IV SCH (08:38)
[2018-09-27] MEDS: FUROSEMIDE 20 MG TABLET PO SCH (08:38)
[2018-09-27] MEDS: FOLIC ACID 1 MG TABLET PO SCH (08:38)
[2018-09-27] MEDS ORDERED: POTASSIUM 25 MEQ EFFERV TAB PO ONE (09:00)
--- NOTE | 2018-09-27 09:54 | P.DS ---
Admission Date: 09/23/18 Discharge Date: 09/27/18 Primary Care Provider: none Disposition: ROUTINE DISCHARGE Discharge Condition: GOOD Reason for Admission: GIB, ESLD/cirrhosis EtOH, massive ascites Consultations: GI-Dr. Leigh Procedures: Paracentesis: 12 L removed Medical problem list: Acute on chronic anemia with acute recurrent upper GI bleed likely related to esophageal varices with history of alcoholic cirrhosis and esophageal varices Advanced ascites with history of multiple recurrent paracentesis status post paracentesis Acute on chronic renal failure, stage 2 with hypovolemia Alcohol abuse Tobacco abuse Thrombocytopenia secondary to alcoholic cirrhosis Orthostatic hypotension on midodrine Brief History of Present Illness: 48-year-old female with history of alcoholic cirrhosis and esophageal varices. Patient presented with hematemesis. Patient was admitted for further evaluation due to anemia. Hospital Course: Patient presented with hematemesis secondary to acute on chronic anemia with acute recurrent upper GI bleed related to esophageal varices with history of alcoholic cirrhosis and severe ascites. Patient was given multiple transfusions. Hemoglobin stabilized. GI was consulted. No GI intervention was required during the hospital stay. Hemoglobin remained stable at discharge. At discharge she will continue with iron 325 mg 1 pill twice daily, thiamine 100 mg daily, folic acid 1 mg daily, lactulose daily to maintain 3-4 bowel movements daily, Xifaxan 550 mg 1 pill twice daily, and Protonix 40 mg 1 pill twice daily. Patient has been counseled extensively about cessation of alcohol. Patient understands the risks of continued alcohol including reoccurrence of a GI bleed and worsening liver failure. Patient plans to quit. She is in the process of moving to get away from the people that provide her alcohol. Recommend to follow up with GI in 1-2 weeks to follow up this hospitalization. Patient will require hepatology evaluation as an outpatient in [facility] if the patient remains alcohol free for possible intervention. Patient will establish care with a local physician to continue her care. Recommend to recheck lab-CBC, CMP in 1-2 weeks. Patient with advanced ascites with history of multiple recurrent paracentesis. Patient did get a paracentesis during her hospital stay. 12 L removed. Patient will likely need outpatient paracentesis every 2-4 weeks. This can be arranged as an outpatient by her PCP or GI. Diuretic therapy adjusted. At discharge she will continue with Lasix 20 mg daily and Aldactone 25 mg daily. Patient continue with a 1500 cc per day fluid restriction and low-salt diet. Recommend to follow up with GI in 1 week. Patient with acute on chronic renal failure. Patient receive IV fluids and blood. Renal function now stable. Recommend to recheck lab-CMP in 1-2 weeks to monitor progress. Patient with orthostatic hypotension. Patient remains on midodrine. Patient will continue with midodrine 5 mg 1 pill 3 times a day. Medication can be further adjusted by her PCP. Tobacco and alcohol cessation education provided Vital Signs/Physical Exam: Temp Pulse Resp BP Pulse Ox 99.3 F 82 17 96/59 L 95 09/27/18 08:20 09/27/18 08:38 09/27/18 08:20 09/27/18 08:38 09/27/18 08:20 General: Alert, In no apparent distress, Oriented x3, Cooperative HEENT: Atraumatic Neck: Supple Respiratory: Clear to auscultation bilaterally, Normal air movement Cardiovascular: Normal pulses, Regular rate/rhythm Gastrointestinal: Normal bowel sounds, Soft and benign, Non-distended, No tenderness, No masses, No rebound, No guarding, Ascites Musculoskeletal: No erythema, No tenderness, No warmth Integumentary: No tenderness/swelling, No erythema, No warmth, No cyanosis Neurological: Normal speech, Normal strength at 5/5 x4 extr, Normal tone, Normal affect Laboratory Data at Discharge: WBC 3.7 K/uL (4.3-10.9) L 09/27/18 04:47 Hgb 7.7 g/dL (12.0-15.0) L* 09/27/18 04:47 Hct 23.2 % (36.0-45.0) L 09/27/18 04:47 Plt Count 93 K/uL (152-406) L* 09/27/18 04:47 PT 15.4 SECONDS (9.5-12.5) H 09/23/18 18:31 INR 1.32 09/23/18 18:31 APTT 31.3 SECONDS (24.3-36.9) 09/23/18 18:31 Sodium 140 mmol/L (136-145) 09/27/18 04:47 Potassium 3.7 mmol/L (3.5-5.1) 09/27/18 04:47 BUN 19 mg/dL (7-18) H 09/27/18 04:47 Creatinine 0.80 mg/dL (0.55-1.3) 09/27/18 04:47 Glucose 113 mg/dL (74-106) H 09/27/18 04:47 Magnesium 2.0 mg/dL (1.8-2.4) 09/27/18 04:47 Total Bilirubin 1.1 mg/dL (0.2-1.0) H 09/27/18 04:47 AST 32 U/L (15-37) 09/27/18 04:47 ALT 25 U/L (12-78) 09/27/18 04:47 Alkaline Phosphatase 91 U/L (45-117) 09/27/18 04:47 Lipase 209 U/L (73-393) 09/23/18 21:23 Home Medications: Diphenhydramine [Benadryl*] 2 tab PO BEDTIME PRN 04/06/18 Ondansetron HCl [Zofran] 4 mg PO Q8H PRN 04/06/18 Melatonin/Pyridoxine [Melatonin 5 mg Tablet] 10 mg PO BEDTIME 09/10/18 Pyridoxine [Vitamin B-6*] 100 mg PO DAILY 09/10/18 Trazodone [Desyrel*] 50 mg PO BEDTIME MDD 1 09/10/18 Ferrous Sulfate [Iron] 325 mg PO BID #60 tablet 09/27/18 Folic Acid 1 mg PO DAILY #30 tablet 09/27/18 Furosemide [Lasix*] 20 mg PO DAILY #30 tab 09/27/18 Lactulose [Cephulac*] 30 ml PO DAILY #1 bottle 09/27/18 Midodrine HCl 5 mg PO TID #90 tablet 09/27/18 Pantoprazole [Protonix Tab*] 40 mg PO BIDAC #60 tab 09/27/18 Rifaximin [Xifaxan] 550 mg PO BID #60 tablet 09/27/18 Spironolactone [Aldactone*] 25 mg PO DAILY #30 tab 09/27/18 Thiamine HCl [Vitamin B-1*] 100 mg PO DAILY #30 tablet 09/27/18 New Medications: Ferrous Sulfate [Iron] 325 mg PO BID #60 tablet Folic Acid 1 mg PO DAILY #30 tablet Furosemide [Lasix*] 20 mg PO DAILY #30 tab Lactulose [Cephulac*] 30 ml PO DAILY #1 bottle Midodrine HCl 5 mg PO TID #90 tablet Pantoprazole [Protonix Tab*] 40 mg PO BIDAC #60 tab Rifaximin [Xifaxan] 550 mg PO BID #60 tablet Spironolactone [Aldactone*] 25 mg PO DAILY #30 tab Thiamine HCl [Vitamin B-1*] 100 mg PO DAILY #30 tablet Patient Discharge Instructions: 1. Patient will establish care with a PCP to follow up this hospitalization within 1 week. 2. Patient presented with hematemesis secondary to acute on chronic anemia with acute recurrent upper GI bleed related to esophageal varices with history of alcoholic cirrhosis and severe ascites. Patient was given multiple transfusions. Hemoglobin stabilized. GI was consulted. No GI intervention was required during the hospital stay. Hemoglobin remained stable at discharge. At discharge she will continue with iron 325 mg 1 pill twice daily, thiamine 100 mg daily, folic acid 1 mg daily, lactulose daily to maintain 3-4 bowel movements daily, Xifaxan 550 mg 1 pill twice daily, and Protonix 40 mg 1 pill twice daily. Patient has been counseled extensively about cessation of alcohol. Patient understands the risks of continued alcohol including reoccurrence of a GI bleed and worsening liver failure. Patient plans to quit. She is in the process of moving to get away from the people that provide her alcohol. Recommend to follow up with GI in 1-2 weeks to follow up this hospitalization. Patient will require hepatology evaluation as an outpatient in [facility] if the patient remains alcohol free for possible intervention. Patient will establish care with a local physician to continue her care. Recommend to recheck lab-CBC, CMP in 1-2 weeks. 3. Patient with advanced ascites with history of multiple recurrent paracentesis. Patient did get a paracentesis during her hospital stay. 12 L removed. Patient will likely need outpatient paracentesis every 2-4 weeks. This can be arranged as an outpatient by her PCP or GI. Diuretic therapy adjusted. At discharge she will continue with Lasix 20 mg daily and Aldactone 25 mg daily. Patient continue with a 1500 cc per day fluid restriction and low- salt diet. Recommend to follow up with GI in 1 week. 4. Patient with acute on chronic renal failure. Patient receive IV fluids and blood. Renal function now stable. Recommend to recheck lab-CMP in 1-2 weeks to monitor progress. 5. Patient with orthostatic hypotension. Patient remains on midodrine. Patient will continue with midodrine 5 mg 1 pill 3 times a day. Medication can be further adjusted by her PCP. Diet: GI soft, alcohol free Activity: Fall precautions Time spent managing pt's care (in minutes): 55
[2018-09-27 11:18] VITALS: O2SAT 99
[2018-09-27 12:43] VITALS: BP 97/63; TEMP 98.2
[2018-09-27] MEDS: LORazepam 2 MG/ML VIAL IV PRN (14:11)
== END 2018-09-27 16:00 | disposition home or self-care (01) | DRG 432 ==
LOC: ER 16:49 → ERHOLD 20:19 → 3RD-ICU 20:52 → 4TH 09-26 17:00
PROVIDERS: ADMIT Internal Medicine; ATTEND Family Medicine
PROC: 30233N1 Transfusion of Nonautologous Red Blood Cells into Peripheral Vein, Percutaneous Approach (ICD-10-PCS; principal; 2018-09-23)
PROC: 0W9G3ZX Drainage of Peritoneal Cavity, Percutaneous Approach, Diagnostic (ICD-10-PCS; 2018-09-24)
DX: K70.31 Alcoholic cirrhosis of liver with ascites (principal); I85.11 Secondary esophageal varices with bleeding; D62 Acute posthemorrhagic anemia; N17.9 Acute kidney failure, unspecified; K92.0 Hematemesis; F17.210 Nicotine dependence, cigarettes, uncomplicated; D69.6 Thrombocytopenia, unspecified; I95.1 Orthostatic hypotension; E86.1 Hypovolemia; F10.120 Alcohol abuse with intoxication, uncomplicated; K72.90 Hepatic failure, unspecified without coma; N18.3 Chronic kidney disease, stage 3 (moderate)
CPT/HCPCS: 36415; 36430; 49083; 80048; 80053; 80076; 80320; 81003; 82140; 83690; 83735; 84132; 85014; 85018; 85025; 85610; 85730; 86850; 86900; 86901; 88108; 88305; 89050; 94760; 99285; C9113; J0696; J2354; J3010; J3360; J3411; J7030; P9016; P9047

== ENCOUNTER → 2018-10-01 | Day surgery (SDC) | payer MEDICAID ==
[~2018-10-01] MED LIST changes: +ALBUMIN HUMAN 25% 200 ML IV ONE; -ALBUMIN HUMAN 25% 300 ML IV ONE
--- OUTSIDE RECORDS SUMMARY | 2018-10-01 09:21 | XMS REPORT | Clinical Summary ---
:1970 Author Organization [facility] Address [address] [place] [address] Care Team Providers Name Role Phone Alison [...] Sr., MD Sanders, Sunny Buchanan MD after 09/30/2017 Social History Tobacco Use Types Packs/Day Years [...] Taken Blood Pressure 109/68 08/08/2018 4:30 PM [employer] Pulse 105 08/08/2018 4:30 PM [employer] Temperature 36.6 C (97.9 F) 08/08/2018 3:40 PM [employer] Respiratory Rate 18 08/08/2018 4:30 PM [employer] Oxygen Saturation 100% 08/08/2018 3:40 PM [employer] Inhaled Oxygen Concentration - - Weight 59 kg (130 lb) 08/04/2018 4:30 AM [employer] Height 167.6 cm (5' 6") 08/04/2018 4:30 AM [employer] Body Mass Index 20.98 08/04/2018 4:30 AM [employer] Plan of Treatment Health Maintenance Due Date Last Done Comments CERVICAL CANCER SCREENING 1990 INFLUENZA VACCINE 03/05/2018 Procedures Procedure Name Priority Date/Time Associated Comments Diagnosis ESTIMATED GFR Routine 08/08/2018 2:25 Results for this PM [employer] procedure are in the results section. BASIC METABOLIC PANEL Routine 08/08/2018 2:25 Results for this PM [employer] procedure are in the results section. US ABDOMINAL Routine 08/08/2018 9:50 Results for this PARACENTESIS IMAGING AM [employer] procedure are in the results section. ESTIMATED GFR Routine 08/07/2018 4:40 Results for this AM [employer] procedure are in the results section. BASIC METABOLIC PANEL Routine 08/07/2018 4:40 Results for this AM [employer] procedure are in the results section. VENOUS BLOOD GAS Routine 08/06/2018 6:42 Results for this PM [employer] procedure are in the results section. US ABDOMINAL Routine 08/06/2018 2:30 Results for this PARACENTESIS IMAGING PM [employer] procedure are in the results section. SMEAR REVIEW Routine 08/06/2018 6:45 Results for this AM [employer] procedure are in the results section. ESTIMATED GFR Routine 08/06/2018 6:45 Results for this AM [employer] procedure are in the results section. LACTIC ACID LEVEL Routine 08/06/2018 6:45 Results for this AM [employer] procedure are in the results section. HC COMPLETE BLD COUNT Routine 08/06/2018 6:45 Results for this W/AUTO DIFF AM [employer] procedure are in the results section. PROTHROMBIN TIME WITH Routine 08/06/2018 6:45 Results for this INR AM [employer] procedure are in the results section. BASIC METABOLIC PANEL Routine 08/06/2018 6:45 Results for this AM [employer] procedure are in the results section. PARTIAL THROMBOPLASTIN Routine 08/06/2018 6:45 Results for this TIME (PTT) AM [employer] procedure are in the results section. LACTIC ACID LEVEL, Timed 08/05/2018 6:00 Results for this SEPSIS - NOW AND REPEAT PM [employer] procedure are in 2X EVERY 3 HOURS the results section. LACTIC ACID LEVEL, Timed 08/05/2018 3:25 Results for this SEPSIS - NOW AND REPEAT PM [employer] procedure are in 2X EVERY 3 HOURS the results section. SMEAR REVIEW Routine 08/05/2018 4:35 Results for this AM [employer] procedure are in the results section. ESTIMATED GFR Routine 08/05/2018 4:35 Results for this AM [employer] procedure are in the results section. AMMONIA LEVEL Routine 08/05/2018 4:35 Results for this AM [employer] procedure are in the results section. BASIC METABOLIC PANEL Routine 08/05/2018 4:35 Results for this AM [employer] procedure are in the results section. HC COMPLETE BLD COUNT Routine 08/05/2018 4:35 Results for this W/AUTO DIFF AM [employer] procedure are in the results section. US ABDOMINAL STAT 08/04/2018 1:35 Results for this PARACENTESIS IMAGING PM [employer] procedure are in the results section. XR CHEST 1 VW PORTABLE STAT 08/04/2018 5:19 Results for this AM [employer] procedure are in the results section. SMEAR REVIEW STAT 08/04/2018 5:00 Results for this AM [employer] procedure are in the results section. AMMONIA LEVEL STAT 08/04/2018 5:00 Results for this AM [employer] procedure are in the results section. ESTIMATED GFR STAT 08/04/2018 5:00 Results for this AM [employer] procedure are in the results section. MAGNESIUM LEVEL STAT 08/04/2018 5:00 Results for this AM [employer] procedure are in the results section. PARTIAL THROMBOPLASTIN STAT 08/04/2018 5:00 Results for this TIME (PTT) AM [employer] procedure are in the results section. PROTHROMBIN TIME WITH STAT 08/04/2018 5:00 Results for this INR AM [employer] procedure are in the results section. HC COMPLETE BLD COUNT STAT 08/04/2018 5:00 Results for this W/AUTO DIFF AM [employer] procedure are in the results section. COMPREHENSIVE METABOLIC STAT 08/04/2018 5:00 Results for this PANEL AM [employer] procedure are in the results section. after 09/30/2017 Results Estimated GFR (08/08/2018 2:25 PM [employer])Only the most recent of5 resultswithin the time period is included. Estimated GFR 59 (A) mL/min/1.73 m2 [facility] Comment: [facility] CatergoryUnitsInterpretation G1 >=90 Normal or high G2 60-89Mildly decreased [id number] to moderately decreased D6m04-31Hnmcqspgiy to severely decreased G4 15-29Severely decreased G5 <15Kidney failure The eGFR was calculated using the Chronic Kidney Disease Epidemiology Collaboration (CKD-EPI) equation. Interpretation is based on recommendations of the National Kidney Foundation-Kidney Disease Outcomes Quality Initiative (NKF-KDOQI) published in 2014. Specimen Plasma specimen Performing Organization Address City/State/Zipcode [place] [id number], [address] [place] [address] PATHOLOGY AND GENOMIC S MEDICINE [facility] THE [address] [place] [address] [facility] Basic metabolic panel (08/08/2018 2:25 PM [employer])Only the most recent of4 resultswithin the time period is included. Sodium 139 135 - 148 mEq/L [facility] Potassium 3.7 3.5 - 5.0 mEq/L [facility] Chloride 107 98 - 112 mEq/L [facility] CO2 17 (L) 24 - 31 mEq/L [facility] Anion gap 15 7 - 15 mEq/L [facility] BUN 20 6 - 20 mg/dL [facility] Creatinine 1.10 (H) 0.50 - 0.90 mg/dL [facility] Glucose 105 (H) 65 - 99 mg/dL [facility] Calcium 9.2 8.3 - 10.2 mg/dL [facility] Specimen Plasma specimen Performing Organization Address City/State/[place]code [place] [address], [address] [place] [address] PATHOLOGY AND GENOMIC S MEDICINE [facility] THE [address] [place] [address] [facility] US Abdominal Paracentesis Imaging (08/08/2018 9:50 AM [employer])Only the most recent of3 resultswithin the time period is included. Narrative Performed At [facility] Ultrasound-guided paracentesis. Clinical Indication [...] anesthetic. Using real-time ultrasound guidance, a 5 [place] Yueh catheter was advanced successfully into the peritoneal cavity with return of cloudy yellow ascites. A total of 5000 mL of fluid was removed. The Yueh catheter was removed and hemostasis was achieved with manual compression. The patient tolerated the procedure well. Complications None. Impression: Successful ultrasound-guided paracentesis with removal of 5000 ml of cloudy yellow ascites. [id number] Procedure Note Hm Interface, Radiology Results Incoming - 08/08/2018 12:03 PM [employer] Procedure Ultrasound-guided paracentesis. Clinical Indication Ascites. Anesthesia [...] anesthetic. Using real-time ultrasound guidance, a 5 [place] Yueh catheter was advanced successfully into the peritoneal cavity with return of cloudy yellow ascites. A total of 5000 mL of fluid was removed. The Yueh catheter was removed and hemostasis was achieved with manual compression. The patient tolerated the procedure well. Complications None. Impression: Successful ultrasound-guided paracentesis with removal of 5000 ml of cloudy yellow ascites. [facility]-[id number] Performing Organization Address City/[facility] Phone [facility] [address] [place] [address] Venous blood gas (08/06/2018 6:42 PM [employer]) pH, venous 7.41 7.32 - 7.42 [facility] pCO2, venous 24 (L) 45 - 51 mmHg [facility] pO2, venous 75 (H) 25 - 40 mmHg [facility] Base excess, venous -9 (L) -2 - 2 meq/L [facility] O2 saturation, venous 95 (H) 40 - 70 % [facility] Bicarbonate, venous 14.5 (L) 21.0 - 28.0 mmol/L [facility] Specimen Blood Performing Organization Address City/[facility] [place] Number [place] [address], [address] [place] [address] PATHOLOGY AND GENOMIC S MEDICINE [facility] THE [address] [place] [address] [facility] Smear review (08/06/2018 6:45 AM [employer])Only the most recent of3 resultswithin the time period is included. Platelet slide review Decreased (A) [facility] Anisocytosis Moderate [facility] Tear drop cells Occasional [facility] Schistocytes Occasional [facility] Spherocytes Occasional [facility] Performing Organization Address City/[facility] Phone Number [facility] [place]PARTMENT [place] [address] PATHOLOGY [facility] THE [address] Partial thromboplastin time, activated (08/06/2018 6:45 AM [employer])Only the most recent of2 resultswithin the time period is included. PTT 42.1 (H) 23.0 - 36.[address] [facility] THE Comment: [facility] PTT therapeutic range for unfractionated heparin is 61.0-112.0 seconds which corresponds to Anti-Xa 0.3-0.7 U/ml. Specimen Blood Performing Organization Address [facility] Phone Number [facility] DEPARTMENT OF [facility] [address] Prothrombin time with INR (08/06/2018 6:45 AM [employer])Only the most recent of2 resultswithin the time period is included. Prothrombin time 15.2 (H) 11.5 - 14.5 sec [facility] INR 1.[address] [facility] THE Comment: [facility] The International Normalized Ratio (INR) is a therapeutic monitoring tool for patients who are stable on oral anticoagulant therapy. An INR of 2.0-3.0 is suggested for deep vein thrombosis/pulmonary embolism. Specimen Blood Performing Organization Address [facility] Phone Number [facility] DEPARTMENT OF [facility] [address] [address] [address] CBC with platelet and differential (08/06/2018 6:45 AM [employer])Only the most recent of3 resultswithin the time period is included. WBC 3.27 (L) 4.50 - 11.00 k/uL [facility] RBC 2.52 (L) 4.20 - 5.50 m/uL [facility] HGB 7.7 (L) 12.0 - 16.0 g/dL [facility] HCT 24.6 (L) 37.0 - 47.0 % [facility] MCV 97.6 82.0 - 100.0 fL [facility] MCH 30.6 27.0 - 34.0 pg [facility] MCHC 31.3 31.0 - 37.0 g/dL [facility] RDW - SD 72.1 (H) 37.0 - 55.0 fL [facility] MPV 10.3 8.8 - 13.2 fL [facility] Platelet count 115 (L) 150 - 400 k/uL [facility] Nucleated RBC 0.00 /100 WBC [facility] Neutrophils 72.2 (H) 39.0 - 69.0 % [facility] Lymphocytes 6.7 (L) 25.0 - 45.0 % [facility] Monocytes 14.4 (H) 0.0 - 10.0 % [facility] Eosinophils 4.9 0.0 - 5.0 % [facility] Basophils 1.5 (H) 0.0 - 1.0 % [facility] Immature granulocytes 0.3Comment: "Immature 0.0 - 1.0 % [facility] granulocytes" [facility] (promyelocytes, myelocytes, metamyelocytes) Specimen Blood Performing Organization Address City/[facility] Phone Number [place] [phone], [address] [place] [address] PATHOLOGY AND Mingly S MEDICINE [facility] THE [address] Lactic acid level (08/06/2018 6:45 AM [employer]) Lactic acid 1.6 0.5 - 2.2 mmol/L [facility] Specimen Plasma specimen Performing Organization Address City/[facility] Cent[facility]ode Phone Number [place] [phone], [address] [place] [address] PATHOLOGY AND GENOMIC S MEDICINE [facility] THE [address] [place] [id number] Lactic acid level, SEPSIS - Now and repeat 2x every 3 hours (08/05/2018 6:00 PM [employer])Only the most recent of2 resultswithin the time period is included. Lactic acid 1.5 0.5 - 2.2 mmol/L [facility] Specimen Plasma specimen Performing Organization Address City/State/Zipcode Phone Number [facility] [place] [address], [address] [place] [address] PATHOLOGY AND GENOMIC S MEDICINE [facility] THE [address] [place] [address] [facility] Ammonia level (08/05/2018 4:35 AM [employer])Only the most recent of2 resultswithin the time period is included. Ammonia 276 (H) 11 - 51 umol/L [facility] Specimen Blood Performing Organization Address [facility] Phone Number [facility] [place] [address], [address] [place] [address] PATHOLOGY AND GENOMIC S MEDICINE [facility] THE [address] [place] [address] [facility] XR Chest 1 Vw Portable (08/04/2018 5:19 AM [employer]) Narrative Performed At Examination:XR CHEST 1 VW PORTABLE [facility] Clinical History:sob Comparison: None. Technique: Single frontal view of the chest is obtained. Findings: Low lung volume with vascular crowding is noted. The heart size is normal. No pleural effusion is seen. Impression: Low lung volume but no acute infiltrate. [facility]-[id number] Procedure Note Hm Interface, Radiology Results Incoming - 08/04/2018 5:46 AM [employer] Examination: XR CHEST 1 VW PORTABLE Clinical History: sob Comparison: None. Technique: Single frontal view of the chest is obtained. Findings: Low lung volume with vascular crowding is noted. The heart size is normal. No pleural effusion is seen. Impression: Low lung volume but no acute infiltrate. [facility]-[id number] Performing Organization Address City/[facility]/Zipcode Phone Number [facility] [address] [place] [address] Magnesium level (08/04/2018 5:00 AM [employer]) Magnesium 1.9 1.6 - 2.6 mg/dL [facility] Specimen Plasma specimen Performing Organization Address City/[facility]/Zipcode Phone Number [facility] [place] [address], [address] [place] [address] PATHOLOGY AND GENOMIC S MEDICINE [facility] THE [address] [place] [address] [facility] Comprehensive metabolic panel (08/04/2018 5:00 AM [employer]) Sodium 137 135 - 148 mEq/L [facility] Potassium 3.8 3.5 - 5.0 mEq/L [facility] Chloride 109 98 - 112 mEq/L [facility] CO2 13 (LL) 24 - 31 mEq/L [facility] THE Comment: [facility] CO2 Results called to and read back by FISH VIEYRA RN/ED at [id number] by ROXANNA. Anion gap 15 7 - 15 mEq/L [facility] BUN 23 (H) 6 - 20 mg/dL [facility] Creatinine 1.65 (H) 0.50 - 0.90 mg/dL [facility] Glucose 94 65 - 99 mg/dL [facility] Calcium 8.6 8.3 - 10.2 mg/dL [facility] Protein 7.0 6.3 - 8.3 g/dL [facility] THE Comment: [facility] [place] 4.6-7.0 g/dL 1 week 4.4-7.6 g/dL 7 months-1year5.1-7.3 g/dL 1-2 years5.6-7.5 g/dL >3 years6.0-8.0 g/dL 18-150 6.3-8.3 g/dL Albumin 3.1 (L) 3.5 - 5.0 g/dL [facility] A/G ratio 0.8 0.7 - 3.8 [facility] Alkaline phosphatase 147 (H) 35 - 104 U/L [facility] AST 66 (H) 10 - 35 U/L [facility] ALT 36 5 - 50 U/L [facility] Total bilirubin 1.0 0.0 - 1.2 mg/dL [facility] Specimen Plasma specimen Performing Organization Address City/State/[place] [address], [address] [place] [address] PATHOLOGY AND GENOMIC S MEDICINE [facility] THE [address] [place] [address] [facility] after 09/30/2017 Insurance Payer Benefit Plan / Group Subscriber ID Type Phone Address JOSE GARCIA [facility] [employer] xxxxxxxxx HMO Advance Directives Patient has advance care planning documents on file. For more information, please contact:Keith Mcwilliams[address] [place] [address]
--- OUTSIDE RECORDS SUMMARY | 2018-10-01 09:23 | XMS REPORT | Clinical Summary ---
:1970 Author Organization [facility] Address [address] [place] [address] Care Team Providers Name Role Phone Tray [...] test for immunity to both viruses - [facility]. Portal hypertension 11/27/2017 Last [...] [place], Liver Cirrhosis Enriqueta D, (Social Work superintendent radio communications / CM - Transition Care Team ) 06/02/2018 Telephone Case Management [place], Liver Cirrhosis Enriqueta D, (Social Work superintendent radio communications / CM - Transition Care Team ) 05/30/2018 Telephone Case Management [place], Liver Cirrhosis Enriqueta D, (Social Work superintendent radio communications / CM - Transition Care Team ) 05/30/2018 Telephone Case Management [place], Liver Cirrhosis Enriqueta D, (Social Work pneumatic tester mechanic/ CM - Transition Care Team ) 05/29/2018 [...] Immunity status testing; Portal hypertension (HCC) after 09/30/2017 Social History Tobacco Use Types [...] 434 ms QTC Calculation(Bazett) 554 ms P [place] 71 degrees R [place] 36 degrees [place] 61 degrees Normal sinus rhythm Nonspecific ST [...] 436 ms QTC Calculation(Bazett) 515 ms P [place] 94 degrees [place] 24 degrees [place] 27 degrees Normal sinus rhythm Low voltage [...] 430 ms QTC Calculation(Bazett) 517 ms R [place] 30 degrees [place] 20 degrees Accelerated Junctional rhythm Septal infarct [...] 0 ms QTC Calculation(Bazett) 0 ms R [place] 0 degrees [place] 0 degrees No QRS complexes found, no [...] in with ascites (HCC) the results section. [id number], Routine 11/27/2017 1:34 PM Alcoholic Results for [...] with ascites (HCC) the results section. after 09/30/2017 Results Basic Metabolic Panel (05/27/2018 2:39 AM CDT)Only the most recent of8 resultswithin the time period is included. Sodium 134 (L) 135 - 148 meq/L [facility] Potassium 3.5 3.5 - 5.5 meq/L [facility] Chloride 107 (H) 98 - 106 meq/L [facility] CO2 15 (L) 20 - 31 meq/L [facility] BUN 22 10 - 26 mg/dL [facility] Creatinine 1.51 (H) 0.50 - 1.20 mg/dL [facility] Glucose 105 70 - 110 mg/dL [facility] Calcium 9.7 8.5 - 10.5 mg/dL [facility] EGFR 37Comment: ESTIMATED GFR IS NOT mL/min/1.73 sq m [facility] ACCURATE CREATININE CLEARANCE IN PREDICTING GLOMERULAR FILTRATION RATE. ESTIMATED GFR IS NOT APPLICABLE FOR DIALYSIS PATIENTS. Specimen Blood - Arm, Right Narrative Performed At [facility] Specimen slightly icteric Performing Organization Address City/State/Zipcode Phone Number [facility] [address] [place] [address] TRANSFUSION SERVICE REPORT - SCAN (05/26/2018 6:12 PM CDT)Only the most recent of7 resultswithin the time period is included. Narrative Performed At US paracentesis (05/26/2018 3:49 PM CDT)Only the most recent of3 resultswithin the time period is included. Narrative Performed At FINAL REPORT [facility] Ultrasound guided paracentesis, 05/26/2018. Clinical History:Ascites. Sedation: None. Uniforms Sales Representative:Vishnu Biggs MD Electrical Technician Instructor:None. Estimated Blood Loss: < 1 cc. Specimen: [...] was achieved with 1% lidocaine, a 5 Greenlandic one-step catheter was advanced into the peritoneal cavity under ultrasound guidance. After completion of drainage, the catheter was removed. There was no evidence of complication. Impression: Successful ultrasound guided paracentesis. Signed: Vishnu Biggs MD Report Verified Date/Time:05/26/2018 16:05:11 Reading Location: [facility] Radiology Reading Room Procedure Note Interface, External Ris In - 05/27/2018 7:25 AM CDT FINAL REPORT Ultrasound guided paracentesis, 05/26/2018. Clinical History: Ascites. Sedation: None. Uniforms Sales Representative: Vishnu Biggs MD Electrical Technician Instructor: None. Estimated Blood Loss: < 1 cc. [...] was achieved with 1% lidocaine, a 5 Greenlandic one-step catheter was advanced into the peritoneal cavity under ultrasound guidance. After completion of drainage, the catheter was removed. There was no evidence of complication. Impression: Successful ultrasound guided paracentesis. Signed: Vishnu Biggs MD Report Verified Date/Time: 05/26/2018 16:05:11 Reading Location: [facility] Radiology Reading Room Performing Organization Address City/State/Zipcode Phone Number [facility] Body fluid culture (05/26/2018 3:20 PM CDT)Only the most recent of2 resultswithin the time period is included. Result No growth [facility] Gram Stain Result 2+ WBCs [facility] Gram Stain Result No organisms seen [facility] Specimen Body Fluid - Ascites Performing Organization Address City/[facility]/Zipcode Phone Number [facility] [address] [place] [address] Body fluid cell count with differential (05/26/2018 3:20 PM CDT)Only the most recent of2 resultswithin the time period is included. Appearance Hazy (A) Clear [facility] Color Straw Colorless, Straw [facility] RBCs 1,220 (H) <=1 /uL [facility] Adjusted WBC Count 193 (H) <=5 /cu mm [facility] Lining Cells 14 (H) <=1 /cu mm [facility] % Segs 44 % [facility] % Lymphs 26 % [facility] % Monos 30 % [facility] % Eos 0 % [facility] % Baso 0 % [facility] Interpretation Negative for malignant [facility] cells. Pathologist: Stanislav Sofia M.D. [facility] (electronic signature) Container Body Fluid Sterile Cup [facility] Specimen Body Fluid - Ascites Performing Organization Address [facility] Phone Number [facility] [address] [place] [address] [phone] Potassium (05/26/2018 5:16 AM CDT)Only the most recent of3 resultswithin the time period is included. Potassium 3.7 3.5 - 5.5 meq/L [facility] Specimen Blood - Arm, Right Performing Organization Address [facility] [place] [place] Phone Number [facility] [address] [place] [address] Magnesium (05/26/2018 5:16 AM CDT)Only the most recent of7 resultswithin the time period is included. Magnesium 2.1 1.5 - 3.0 mg/dL [facility] Specimen Blood - Arm, Right Performing Organization Address [facility] Phone Number [facility] [address] [place] [address] [phone] Ammonia (05/26/2018 5:16 AM CDT)Only the most recent of3 resultswithin the time period is included. Ammonia 134 (H) 12 - 72 mol/L [facility] Specimen Blood - Arm, Right Performing Organization Address [facility] Phone Number [facility] [address] [place] [address] [phone] Comprehensive metabolic panel (05/26/2018 5:16 AM CDT)Only the most recent of5 resultswithin the time period is included. Protein, Total 7.5 6.0 - 8.5 gm/dL [facility] Albumin 3.9 3.5 - 5.0 g/dL [facility] Alkaline Phosphatase 97 30 - 115 U/L [facility] Total Bilirubin 2.3 (H) 0.1 - 1.3 mg/dL [facility] Sodium 134 (L) 135 - 148 meq/L [facility] Potassium 3.7 3.5 - 5.5 meq/L [facility] Chloride 105 98 - 106 meq/L [facility] CO2 16 (L) 20 - 31 meq/L [facility] BUN 25 10 - 26 mg/dL [facility] Creatinine 1.74 (H) 0.50 - 1.20 mg/dL [facility] Glucose 116 (H) 70 - 110 mg/dL [facility] Calcium 9.6 8.5 - 10.5 mg/dL [facility] AST 44 (H) 5 - 40 U/L [facility] ALT 23 6 - 50 U/L [facility] EGFR 31Comment: ESTIMATED GFR mL/min/1.73 sq m [facility] IS NOT ACCURATE CREATININE CLEARANCE IN PREDICTING GLOMERULAR FILTRATION RATE. ESTIMATED GFR IS NOT APPLICABLE FOR DIALYSIS PATIENTS. Specimen Blood - Arm, Right Performing Organization Address City/State/Zipcode Phone Number [facility] [address] [place] [address] Prepare Leuko-Red RBC (05/25/2018 11:54 PM CDT)Only the most recent of2 resultswithin the time period is included. CROSSMATCH COMPATIBLE SAFETRACE TX Unit ABO O Pos SAFETRACE TX UNIT NUMBER [id number] SAFETRACE TX Status TRANSFUSED SAFETRACE TX Blood Bank Product RED BLOOD CELLS SAFETRACE TX PRODUCT CODE [id number] SAFETRACE TX CROSSMATCH COMPATIBLE SAFETRACE TX Unit ABO O Pos SAFETRACE TX UNIT NUMBER [id number] SAFETRACE TX Status TRANSFUSED SAFETRACE TX Blood Bank Product RED BLOOD CELLS SAFETRACE [place] PRODUCT CODE [id number] SAFETRACE [place] Specimen Other Performing Organization Address City/State/Zipcode Phone Number [place] CBC with platelet count + automated diff (05/25/2018 3:49 AM CDT)Only the most recent of12 resultswithin the time period is included. WBC 4.5 4.0 - 10.0 K/L [facility] RBC 3.28 (L) 4.00 - 5.00 M/L [facility] Hemoglobin 10.0 (L) 12.0 - 15.5 GM/DL [facility] Hematocrit 29.9 (L) 36.0 - 46.0 % [facility] MCV 91.2 82.0 - 99.0 fL [facility] MCH 30.5 27.0 - 33.0 pg [facility] MCHC 33.4 32.0 - 36.0 GM/DL [facility] RDW 17.4 (H) 12.0 - 15.0 % [facility] Platelets 105 (L) 150 - 430 K/CU MM [facility] MPV 10.5Comment: 6.0 - 11.5 fL [facility] MPV-Approximately 20% positive bias due to method change. nRBC 0 0 - 0 /100 WBC [facility] % Neutros 71 % [facility] % Lymphs 8 % [facility] % Monos 13 % [facility] % Eos 6 % [facility] % Baso 1 % [facility] # Neutros 3.22 1.80 - 8.00 K/L [facility] # Lymphs 0.38 (L) 1.48 - 4.50 K/L [facility] # Monos 0.57 0.00 - 1.30 K/L [facility] # Eos 0.29 0.00 - 0.50 K/L [facility] # Baso 0.05 0.00 - 0.20 K/L [facility] Immature 0 0 - 0 % [facility] Granulocytes-Relative Specimen Blood Performing Organization Address City/[facility]/Zipcode Phone Number [facility] [address] [place] [address] [phone] Transfuse Leuko-Red RBC (05/25/2018 12:17 AM CDT)Only the most recent of5 resultswithin the time period is included.Occult blood, stool (05/24/2018 1:38 PM CDT) Occult blood Positive (A) Negative [facility] Specimen Stool Performing Organization Address [facility] Phone Number [facility] [address] [place] [address] [phone] Sodium, random urine (05/24/2018 1:38 PM CDT)Only the most recent of2 resultswithin the time period is included. Sodium Urine 28 meq/L [facility] Specimen Urine Narrative Performed At [facility] Reference Range: No Normals Performing Organization Address [facility] Phone Number [facility] [address] [place] [address] Creatinine, random urine (05/24/2018 1:38 PM CDT)Only the most recent of2 resultswithin the time period is included. Creatinine, Ur 42.7 mg/dL [facility] Specimen Urine Narrative Performed At [facility] Reference Range: No Normals Performing Organization Address [facility] [place] [place] Phone Number [facility] [address] [place] [address] Type and screen, automated (05/24/2018 1:36 PM CDT)Only the most recent of2 resultswithin the time period is included. ABORh O POSITIVE [facility] Antibody Screen NEGATIVE [facility] Specimen Blood Performing Organization Address [facility] Phone Number [facility] [address] [place] [address] [facility] Alpha fetoprotein (AFP), tumor marker (05/24/2018 1:36 PM CDT)Only the most recent of2 resultswithin the time period is included. Alpha-Fetoprotein 5.5 <10.0 ng/mL [facility] Specimen Blood Performing Organization Address City/[facility]/Zipcode Phone Number [facility] [address] [place] [address] [place] Hepatitis panel, acute (05/24/2018 1:36 PM CDT) Hep A IgM HEPATITIS A TEST NEGATIVE Nonreactive [facility] Hep B C IgM NON-REACTIVE Nonreactive [facility] Hepatitis C Ab NON-REACTIVE Nonreactive [facility] hepatitis B Surface Ag NON-REACTIVE Nonreactive [facility] Specimen Blood Performing Organization Address City/State/Zipcode Phone Number [facility] [address] [place] [address] CENTER US renal complete (05/24/2018 11:37 AM CDT) Narrative Performed At FINAL REPORT [facility] RENAL ULTRASOUND HISTORY: [...] MD Report Verified Date/Time:05/24/2018 11:53:08 Reading Location: [address] Transitional Reading Room Procedure Note Interface, [...] Report Verified Date/Time: 05/24/2018 11:53:08 Reading Location: [facility] C0[facility] Transitional Reading Room Performing Organization Address City/State/Zipcode Phone Number [facility] CT brain without IV contrast (05/23/2018 5:55 PM CDT) Narrative Performed At FINAL REPORT [facility] CT head without contrast 05/23/2018 5:55 PM [...] MD Report Verified Date/Time:05/23/2018 17:56:33 Reading Location: [facility] Radiology Reading Room Procedure Note Interface, External [...] Report Verified Date/Time: 05/23/2018 17:56:33 Reading Location: [facility] Radiology Reading Room Performing Organization Address [facility] [place] [place] Phone Number GE RIS XR chest 1 view portable / bedside (05/23/2018 4:25 PM CDT) Narrative Performed At FINAL REPORT [facility] CHEST AP PORTABLE History provided: Altered mental status Heart size normal. Lungs clear and vascularity normal. IMPRESSION: Clear chest. Signed: Gonzalo Serrano MD Report Verified Date/Time:05/23/2018 16:22:47 Reading Location: [facility] Radiology Reading Room Procedure Note Interface, External Ris In - 05/23/2018 4:45 PM CDT FINAL REPORT CHEST AP PORTABLE History provided: Altered mental status Heart size normal. Lungs clear and vascularity normal. IMPRESSION: Clear chest. Signed: Gonzalo Serrano MD Report Verified Date/Time: 05/23/2018 16:22:47 Reading Location: [facility] Radiology Reading Room Performing Organization Address [facility] [place] [place] Phone Number [facility] RIS ECG 12 lead (05/23/2018 3:52 PM CDT)Only the most recent of3 resultswithin the time period is included. Narrative Performed At Ventricular Rate 98 BPM [facility] Atrial Rate 98 BPM P-R Interval 136 ms QRS Duration 74 ms Q-T Interval 434 ms QTC Calculation(Bazett) 554 ms P [place] 71 degrees [place] 36 degrees [place] 61 degrees Normal sinus rhythm Nonspecific ST abnormality Prolonged QT Abnormal ECG No previous ECGs available Procedure Note Interface, External Ris In - 05/26/2018 4:49 PM CDT Ventricular Rate 98 BPM Atrial Rate 98 BPM P-R Interval 136 ms QRS Duration 74 ms Q-T Interval 434 ms QTC Calculation(Bazett) 554 ms P [place] 71 degrees [place] 36 degrees [place] 61 degrees Normal sinus rhythm Nonspecific ST abnormality Prolonged QT Abnormal ECG No previous ECGs available Performing Organization Address [facility] [place] [place] Phone Number GE MUSE Urinalysis w/Microscopic (05/23/2018 3:47 PM CDT) Color, UA Yellow [facility] Clarity, UA Hazy [facility] Specific [place], UA 1.016 1.001 - 1.035 [facility] pH, UA 5.0 5.0 - 8.0 [facility] Protein, UA Negative Negative [facility] Glucose, UA Negative Negative [facility] Ketones, UA Negative Negative [facility] Bilirubin, UA Negative Negative [facility] Blood, UA Negative Negative [facility] Nitrite, UA Negative Negative [facility] Leukocytes, UA Negative Negative [facility] Urobilinogen, UA <1.0 0.2 - 1.0 mg/dL [facility] RBC, UA 1 /HPF [facility] WBC, UA 1 /HPF [facility] Bacteria, UA Rare [facility] Mucus Rare [facility] Squam Epithel, UA <1 /HPF [facility] Hyaline Casts, UA 4 /LPF [facility] Specimen Source [facility] Specimen Urine - Urine, Straight Catheter Performing Organization Address [facility] [place] [place] Phone Number [facility] [address] [place] [address] Urine culture (05/23/2018 3:47 PM CDT) Result No growth [facility] Specimen Urine - Urine, Straight Catheter Performing Organization Address [facility] [place] [place] Phone Number [facility] [address] [place] [address] [phone] Prothrombin time/INR (05/23/2018 3:40 PM CDT)Only the most recent of4 resultswithin the time period is included. Protime 16.1 (H) 11.8 - 14.4 seconds [facility] INR 1.3 1.2 - 1.5 [facility] Specimen Blood - Arm, Right Narrative Performed At [facility] RECOMMENDED COUMADIN/WARFARIN INR THERAPY RANGES STANDARD DOSE: 2.0 - 3.0 Includes: PROPHYLAXIS for venous thrombosis, systemic embolization; TREATMENT for venous thrombosis and/or pulmonary embolus. HIGH RISK: Target INR is 2.5-3.5 for patients with mechanical heart valves. Performing Organization Address [facility] [place] [place] Phone Number [facility] [address] [place] [address] [phone] Blood culture (05/23/2018 3:39 PM CDT)Only the most recent of4 resultswithin the time period is included. Result No growth in 5 days [facility] Specimen Blood - Arm, Right Performing Organization Address [facility] [place] [place] Phone Number [facility] [address] [place] [address] Lactic acid, venous, whole blood (05/23/2018 3:38 PM CDT)Only the most recent of2 resultswithin the time period is included. Lactate, Venous 2.0Comment: Specimen moderately 0.5 - 2.2 mmol/L [facility] hemolyzed Specimen Blood - Line, Venous Narrative Performed At [facility] Effective 12/07/2015: Units/Reference Range Change New: 0.5-2.2 mmol/LPrevious: 5-20 mg/dL Performing Organization Address [facility] Number [facility] [address] [place] [address] Lipase (05/23/2018 3:38 PM CDT)Only the most recent of2 resultswithin the time period is included. Lipase 82 (H) 8 - 78 U/L [facility] Specimen Blood - Line, Venous Performing Organization Address [facility] [place] [place] Phone Number [facility] [address] [place] [address] RHYTHM STRIP - SCAN (02/18/2018 10:30 AM CDT) Narrative Performed At POC-Glucose meter (02/15/2018 11:14 AM CDT)Only the most recent of17 resultswithin the time period is included. POC-Glucose Meter 119 (H)Comment: TESTED AT 70 - 110 mg/dL [facility] [address] [facility] [address] Specimen Blood Performing Organization Address City/[facility]/Zipcode Phone Number [address] [address] CENTER CBC (Hemogram only) (02/15/2018 5:05 AM CDT)Only the most recent of3 resultswithin the time period is included. WBC 5.1 3.5 - 10.5 K/L [facility] RBC 2.79 (L) 3.93 - 5.22 M/L [facility] Hemoglobin 8.8 (L) 11.2 - 15.7 GM/DL [facility] Hematocrit 27.2 (L) 34.1 - 44.9 % [facility] MCV 97.5 (H) 79.4 - 94.8 fL [facility] MCH 31.5 25.6 - 32.2 pg [facility] MCHC 32.4 32.2 - 35.5 GM/DL [facility] RDW 18.8 (H) 11.7 - 14.4 % [facility] Platelets 86 (L) 150 - 450 K/CU MM [facility] MPV 12.6 (H) 9.4 - 12.3 fL [facility] nRBC 0 0 - 0 /100 WBC [facility] Specimen Blood Performing Organization Address City/State/Zipcode Phone Number [address] [address] CENTER Phosphorus (02/15/2018 5:05 AM CDT)Only the most recent of6 resultswithin the time period is included. Phosphorus 3.5 2.3 - 4.7 mg/dL [facility] Specimen Blood Performing Organization Address City/[facility] Phone Number [facility] [address] [place] [phone] [place] Hepatic function panel (02/15/2018 5:05 AM CDT)Only the most recent of5 resultswithin the time period is included. Protein, Total 6.3 6.0 - 8.3 gm/dL [facility] Albumin 3.9 3.5 - 5.0 g/dL [facility] Total Bilirubin 1.7 (H) 0.2 - 1.2 mg/dL [facility] Bilirubin, Direct 1.0 (H) 0.1 - 0.5 mg/dL [facility] Alkaline Phosphatase 126 40 - 150 U/L [facility] AST 118 (H) 5 - 34 U/L [facility] ALT 56 (H) 6 - 55 U/L [facility] Specimen Blood Performing Organization Address City/[facility] Phone Number [address] [address] [place] aPTT (02/14/2018 3:12 PM CDT)Only the most recent of2 resultswithin the time period is included. PTT 28.9 22.5 - 36.0 seconds [facility] Specimen Blood - Central Venous Line Performing Organization Address City/[facility] Phone Number [facility] [address] [place] [phone] CENTER Prepare RBC (02/12/2018 11:54 PM CDT) CROSSMATCH COMPATIBLE SAFETRACE TX Unit ABO O Pos SAFETRACE TX UNIT NUMBER [id number] SAFETRACE TX Status RETURNED FROM ISSUE SAFETRACE TX Blood Bank Product RED BLOOD CELLS SAFETRACE TX PRODUCT CODE [id number] SAFETRACE TX CROSSMATCH COMPATIBLE SAFETRACE TX Unit ABO O Pos SAFETRACE TX UNIT NUMBER [id number] SAFETRACE TX Status TRANSFUSED SAFETRACE TX Blood Bank Product RED BLOOD CELLS SAFETRACE TX PRODUCT CODE [id number] SAFETRACE TX Performing Organization Address [facility] [place] [place] Phone Number SAFETRACE TX HIV-1 Antigen with HIV-1/2 Antibody (02/12/2018 5:29 AM CDT) HIV-1 Antigen with HIV 1&2 NON-REACTIVE Nonreactive [facility] Antibody [facility] Specimen Blood Performing Organization Address [facility] Phone Number [facility] [address] [place] [address] [phone] CENTER PT/aPTT (02/11/2018 3:47 PM CDT)Only the most recent of2 resultswithin the time period is included. Protime 18.7 (H) 11.7 - 14.7 seconds [facility] INR 1.6 <=5.9 [facility] PTT 36.5 (H) 22.5 - 36.0 seconds [facility] Specimen Blood Narrative Performed At [facility] RECOMMENDED COUMADIN/WARFARIN INR THERAPY RANGES STANDARD DOSE: 2.0 - 3.0 Includes: PROPHYLAXIS for venous thrombosis, systemic embolization; TREATMENT for venous thrombosis and/or pulmonary embolus. HIGH RISK: Target INR is 2.5-3.5 for patients with mechanical heart valves. Performing Organization Address [facility] [place], [place] Phone Number [address] [phone] CENTER Tissue Exam (02/11/2018 1:38 PM CDT) Case Report Surgical Pathology Report Case: [id number] [facility] Authorizing Provider:Tamera Mayorga MD Collected: 02/11/2018 1338 [facility] Ordering Location: [place] [address] ICUReceived: 02/11/2018 1613 Pathologist: Herminia Hope MD Specimen:Hernia Sac, Umbilical DIAGNOSIS SKIN AND HERNIA SAC, EXCISION: [facility] - SKIN WITH ULCER, NECROSIS, HERNIA WITH FIBROSIS, ADHESION AND CHRONIC INFLAMMATION [facility] Signing Pathologist Direct Phone Line: [phone] CPT Code(s) 88063 [facility] CLINICAL HISTORY Incarcerated umbilical [facility] hernia [facility]IM[facility] S[facility] Hernia sac umbilical [facility] GROSS DESCRIPTION The specimen is received in [facility] a formalin-filled container [facility] labeled with the patient's information and labeled "umbilical hernial sac" and consists of hemorrhagic membranous tissue measuring 6 x 3 x 0.2 cm with overlying brown skin measuring 5.5 x 3 x 0.3 cm, submitted in A1 and A2. There are no areas of suspicion. CG/ew MICROSCOPIC DESCRIPTION Performed [facility] Specimen Tissue - Hernia Sac, Umbilical Performing Organization Address [facility] Phone Number [address] [address] CENTER AFB culture + smear (02/11/2018 1:34 PM CDT) Result No acid-fast bacilli isolated in [facility] 42 days CENTER AFB Smear No acid fast bacilli seen [facility] Specimen Wound - Abdomen Performing Organization Address [facility] Phone Number [address] [address] [place] Anaerobic culture (02/11/2018 1:34 PM CDT) Result No anaerobes isolated [facility] Specimen Wound - Abdomen Performing Organization Address [facility] Phone Number [address] [address] [phone] CENTER Surgically obtained culture + gram stain (02/11/2018 1:34 PM CDT) Result No growth [facility] Gram Stain Result <1+ WBCs [facility] Gram Stain Result No organisms seen [facility] Specimen Wound - Abdomen Performing Organization Address [facility]/State[facility] Phone Number [address] [address] [place] Fungus culture + smear (02/11/2018 1:34 PM CDT) Result No fungus isolated in 28 days [facility] Fungus Smear No fungi seen [facility] Specimen Wound - Abdomen Performing Organization Address [facility] Phone Number [address] [address] [place] SPIN/CONCENTRATION CHARGE (02/11/2018 1:34 PM CDT) Concentration charged Done [facility] Specimen Wound - Abdomen Performing Organization Address [facility] Number [address] [address] [place] Potassium-Stat Lab (02/11/2018 1:21 PM CDT) Potassium 3.9 3.6 - 5.5 meq/L [facility] Specimen Other Narrative Performed At [facility] THIS IS A VENOUS SAMPLE THIS IS A [facility]ENOUS SAMPLE Performing Organization Address [facility] Number [address] [address] [place] Sodium Na-Stat Lab (02/11/2018 1:21 PM CDT) Sodium 135 135 - 148 meq/L [facility] Specimen Other Narrative Performed At [facility] THIS IS A VENOUS SAMPLE THIS IS A VENOUS SAMPLE Performing Organization Address [facility] [place] [place] Phone Number [address] [address] [place] Glucose-Stat Lab (02/11/2018 1:21 PM CDT) Glucose 122 (H) 70 - 110 mg/dL [facility] Specimen Other Narrative Performed At [facility] THIS IS A VENOUS SAMPLE THIS IS A VENOUS SAMPLE Performing Organization Address City/[facility]/Zipcode Phone Number [address] [address] [phone] [place] HGB/HCT (H&H)-Stat Lab (02/11/2018 1:21 PM CDT) Hemoglobin 8.7 (L) 12.0 - 15.0 g/dL [facility] Hematocrit 26.0 (L) 36.0 - 45.0 % [facility] Specimen Other Narrative Performed At [facility] Performing Organization Address [facility] Phone Number [address] [address] [place] Calcium, Ionized (02/11/2018 1:21 PM CDT) Calcium, Ion 1.07 (L) 1.12 - 1.27 mmol/L [facility] pH, Blood 7.28 [facility] Specimen Blood Performing Organization Address City/[facility] Phone Number [address] [address] [phone] [place] US abdomen complete (02/11/2018 6:57 AM CDT) Narrative Performed At FINAL REPORT [facility] Abdominal Ultrasound Clinical Diagnosis: Ascites acute renal [...] MD Report Verified Date/Time:02/11/2018 09:32:36 Reading Location: [address] Ultrasound Reading Room Procedure Note Interface, [...] Report Verified Date/Time: 02/11/2018 09:32:36 Reading Location: [facility] [id number] Ultrasound Reading Room Performing Organization Address City/State/Zipcode Phone Number [facility] CT abdomen/pelvis without iv contrast (02/11/2018 12:01 AM CDT) Narrative Performed At FINAL REPORT [facility] HISTORY : Hernia, complicated Technique: Multiple axial [...] MD Report Verified Date/Time:02/11/2018 07:50:19 Reading Location: [facility] Diagnostic Imaging Reading Room - [place] [address] Procedure Note Interface, External Ris In - [...] Report Verified Date/Time: 02/11/2018 07:50:19 Reading Location: [facility] Diagnostic Imaging Reading Room - [place] [address] Performing Organization Address City/[facility]/Zipcode Phone Number [facility] Protein, random urine (02/10/2018 6:15 PM CDT) Protein, Urine 19 (H) 0 - 14 mg/dL [facility] Specimen Urine - Urine, Voided Performing Organization Address [facility] Phone Number [address] [address] [phone] [place] Screen, urine (02/10/2018 6:14 PM CDT) Preg Test, Ur Negative [facility] Specimen Urine - Urine, Voided Performing Organization Address [facility] Phone Number [address] [address] CENTER REPORT OF PROCEDURE - ENDOSCOPY URL (02/10/2018 4:35 PM CDT) Narrative Performed At Urinalysis w/Microscopic + Reflex to Culture (02/10/2018 4:08 AM CDT) Color, UA Yellow [facility] Clarity, UA Hazy [facility] Specific [place], UA 1.013 1.001 - 1.035 [facility] pH, UA 6.0 5.0 - 8.0 [facility] Protein, UA 10 mg/dL (A) Negative [facility] Glucose, UA Negative Negative [facility] Ketones, UA Trace (A) Negative [facility] Bilirubin, UA Negative Negative [facility] Blood, UA Negative Negative [facility] Nitrite, UA Negative Negative [facility] Leukocytes, UA Negative Negative [facility] Urobilinogen, UA 0.2 0.2 - 1.0 mg/dL [facility] RBC, UA <1 /HPF [facility] WBC, UA 2 /HPF [facility] Bacteria, UA Rare [facility] Mucus Rare [facility] Squam Epithel, UA 8 /HPF [facility] Hyaline Casts, UA 70 /LPF [facility] Amorphous Crystals Rare [facility] Specimen Source [facility] Specimen Urine - Urine, Voided Performing Organization Address City/State/Zipcode Phone Number [facility] [address] [place] [address] [place] Rapid drug screen, urine (02/10/2018 4:08 AM CDT) Barbiturate Screen Negative Negative [facility] Benzodiazepine Screen Negative Negative [facility] Cocaine (Metab.) Screen Negative Negative [facility] Methadone Screen Negative Negative [facility] Opiate Screen Negative Negative [facility] Cannabinoid Screen Negative Negative [facility] Amph/Methamph Screen Negative Negative [facility] Phencyclidine Screen Negative Negative [facility] Oxycodone Screen Negative Negative [facility] Specimen Urine - Urine, Voided Narrative Performed At [facility] DRUGCUTOFF CONC. Cocaine 300 ng/mL Hlwpcocxors80 ng/mL Jqyaaxwqbsxpru414 ng/mL Barbiturate 200 ng/mL Wzsdyxiianvuc49 ng/mL Kfjpxh839 ng/mL Methadone 300 ng/mL Amphetamine/ 1000 ng/mL Methamphetamine Oxycodone 300 ng/mL This assay provides an unconfirmed qualitative test result for the clinical management of patients in emergency situations. Chain of custody not maintained. Some xxfa-phe-ruxcahl medications, as well as adulterants, may cause inaccurate results. Clinical correlation should be applied. A more comprehensive drug screen or confirmation of a detected drug may be performed upon request. Performing Organization Address [facility] Phone Number [address] [address] [place] Blood gas, venous (02/10/2018 2:00 AM CDT) pH, Ortiz 7.42 7.32 - 7.42 [facility] pCO2, [place] 28 (L) 41 - 51 mmHg [facility] pO2, [place] 34 25 - 40 mmHg [facility] O2 Sat, [place] 67.6 40.0 - 70.0 % [facility] HCO3, [place] 17 (L) 21 - 29 mmol/L [facility] Base Excess, [place] -6.2 (L) -2.0 - 3.0 mmol/L [facility] Patient Temperature 37.0 C [facility] Specimen Blood - Central Venous Line Performing Organization Address [facility] [place], [place] Phone Number [address] [address] [phone] [place] Troponin I (02/10/2018 1:54 AM CDT) Troponin I <0.01 0.00 - 0.03 ng/mL [facility] Specimen Blood Narrative Performed At [facility] Troponin I (TnI) levels must be interpreted [...] disease, and persistent tachyarrhythmia. Performing Organization Address [facility] Phone Number [address] [address] CENTER Fibrinogen (02/10/2018 1:54 AM CDT) Fibrinogen 372 225 - 434 mg/dl [facility] Specimen Blood Performing Organization Address [facility] Phone Number [address] [address] [place] Creatine Kinase (CK), Total and MB (02/10/2018 1:54 AM CDT) Total CK 30 29 - 200 U/L [facility] CK-MB 0.4 0.0 - 6.6 ng/mL [facility] MB Relative Index 1.3 % [facility] Specimen Blood Narrative Performed At CK-MB Reference Range: [facility] <6.7Normal 6.7-10.0Borderline >10.0 Abnormal Performing Organization Address [facility] Phone Number [address] [address] CENTER Ethanol (02/10/2018 1:54 AM CDT) Ethanol Lvl <10 <=10 mg/dL [facility] Specimen Blood Performing Organization Address [facility] Phone Number [address] [address] [place] Hepatitis A antibody, IgG (11/27/2017 1:34 PM CDT) Hep A IgG Nonreactive Nonreactive [facility] Specimen Blood Performing Organization Address [facility] Phone Number [address] [address] [phone] [place] Mitochondrial Antibodies, M2 (11/27/2017 1:34 PM CDT) Mitochondria M2 Ab <20.0 See Note: U [facility] Comment: Reference Range: NEGATIVE:< OR=20.0 EQUIVOCAL: 20.1-24.9 POSITIVE:> OR=25.0 Specimen Blood Narrative Performed At Performing Lab [facility] [place] [address] [place] [address] Lizette Cason MD, PhD, [place] Performing Organization Address City/[facility] Phone Number [place] [id number] [place] [address] Iron, TIBC, % sat. (without ferritin) (11/27/2017 1:34 PM CDT) Iron 37 (L) 40 - 160 ug/dL [facility] TIBC 219 (L) 250 - 450 ug/dL [facility] Iron % Saturation 17 (L) 20 - 55 % [facility] Specimen Blood Performing Organization Address [facility] Phone Number [address] [phone] [place] Hepatitis C antibody (11/27/2017 1:34 PM CDT) Hepatitis C Ab NON-REACTIVE Nonreactive [facility] Specimen Blood Performing Organization Address [facility] Phone Number [address] [phone] [place] Actin (Smooth Muscle) Antibody, IgG (11/27/2017 1:34 [...] Specimen Blood Narrative Performed At Performing Lab [facility] [employer] [place] [address] [place] [address] Lizette Cason MD, PhD, [place] Performing Organization Address City/[facility] Phone Number [place] [address] [facility] [address] [facility] Creic-7-Oqlztbtainw (11/27/2017 1:34 PM CDT) A-1 Antitrypsin 151.80 90.00 - 200.00 mg/dL [facility] Specimen Blood Performing Organization Address City/State/Zipcode Phone Number [address] [address] CENTER [place] Titer & Pattern (11/27/2017 1:34 PM CDT) [place] Titer 1:40 [facility] [place] Pattern Speckled [facility] Specimen Blood Performing Organization Address City/State/Zipcode Phone Number [address] [address] CENTER Ceruloplasmin (11/27/2017 1:34 PM CDT) Ceruloplasmin 25 18 - 53 mg/dL [facility] Comment: Adults:Males: 18-36 mg/dL Females: 18-53 mg/dL Pediatrics:Males (mg/dL)Females (mg/dL) 0-30 Days 8-25 3-28 31 Days-11 Month 15-43 1-3 [id number] 4-6 Vlzze35-8885-56 7-9 Ppfyq48-1023-97 10-12 [id number] 13-15 Disyw60-1791-03 16-18 [id number] The pediatric ranges are derived from the following criteria: Yehuda FINN, Buck MERCHANT, Lorna J et al Pediatric reference ranges for Neei-8-Zwvyzqwlnjbrb and ceruloplasmin. Clin. Chem 1997; 43:S1999 Pediatric Reference Ranges, 2nd., [place] Yehudaet al. editors. [employer], [place], [place] 1997. Specimen Blood Narrative Performed At Performing Lab [facility] *SPL [facility], [id number] [place] [phone] Florencia Almanzar MD, PhD Performing Organization Address City/State/Zipcode Phone Number [facility] [place] [address] [facility] [address] [facility] Hepatitis B core antibody, total (11/27/2017 1:34 PM CDT) Hep B Core Total Ab NON-REACTIVE Nonreactive [facility] Specimen Blood Performing Organization Address City/[facility] Phone Number [address] [address] CENTER Hepatitis B surface antibody (11/27/2017 1:34 PM CDT) Hep B S Ab <8.0 <8.0 mIU/mL [facility] Specimen Blood Performing Organization Address [facility] Phone Number [address] [phone] [place] Hepatitis B surface antigen (11/27/2017 1:34 PM CDT) hepatitis B Surface Ag NON-REACTIVE Nonreactive [facility] Specimen Blood Performing Organization Address [facility] Phone Number [address] [address] CENTER Anti-Nuclear Antibody (LÓPEZ) (11/27/2017 1:34 PM CDT) [place] Positive (A) Negative [facility] Specimen Blood Performing Organization Address [facility]/Zipcode Phone Number [address] [address] CENTER Ferritin (11/27/2017 1:34 PM CDT) Ferritin 237 5 - 275 ng/mL [facility] Specimen Blood Performing Organization Address [facility]/Zipcode Phone Number [address] [address] [phone] CENTER Bilirubin, direct (11/27/2017 1:34 PM CDT) Bilirubin, Direct 0.6 (H) 0.1 - 0.5 mg/dL [facility] Specimen Blood Performing Organization Address City/State/Zipcode Phone Number [facility] [address] [place] [address] CENTER after 09/30/2017 Insurance Payer Benefit Plan / Group Subscriber ID Type Phone Address GARCIA MEDICAID MEDICAID GARCIA xxxxxxxxx Advance Directives For more information, please contact:[facility] [place], [place] [phone] Code Status Date Activated Date Inactivated Comments Full Code 05/23/2018 8:59 PM 05/27/2018 7:11 PM This code status was determined by: Patient Full Code 02/10/2018 2:37 AM 02/15/2018 7:08 PM This code status was determined by: Patient
--- OUTSIDE RECORDS SUMMARY | 2018-10-01 09:25 | XMS REPORT ---
:1970 [facility] [address] [place] [address] [address]. [address] [place] [address] Care Team Providers Name Role Phone CLEVE ALCOCER Unavailable Unavailable NICK MCKENZIE Unavailable Unavailable JUANA, RAMON NEUMANN Unavailable Unavailable Problems This patient has no known problems. Allergies, Adverse Reactions, Alerts This patient has no known allergies or adverse reactions. Medications This patient has no known medications. Results Test Description Test Time Test Comments Text Results Atomic Results Result Comments U/S, PARACENTESIS 2018-06-02 Reason for FINAL REPORT PATIENT ID: 08:43:[id number] exam:->ascitesReason for [id number] Ultrasound exam:->possible sbpShould guided paracentesis, this be performed at the 05/23/2018. Clinical bedside?->Yes History: Ascites. Sedation: None. Utilization Management Rn: Mckenzie. Personnel And Payroll Technician: None. Estimated Blood Loss: < 1 cc. [...] was achieved with 1% lidocaine, a 5 Japanese one-step catheter was advanced into the peritoneal cavity under ultrasound guidance. After completion of drainage, the catheter was removed. There was no evidence of complication. Patient Disposition: The patient was discharged from the ultrasound department after the paracentesis, in good condition. Impression:Successful ultrasound guided paracentesis. Signed: Mckenzie, Pino MDReport Verified Date/Time: 06/02/2018 08:43:07 Reading Location: [facility] B1 P048 [facility] Body Reading Room FLUID CULTURE + GRAM STAIN 2018-05-29 08:26:00 Test Item Value Reference Range Comments CULTURE (BEAKER) (test hmqn=9731) No growth GRAM STAIN RESULT (BEAKER) (test hxvu=2134) 2+ WBCs GRAM STAIN RESULT (BEAKER) (test gcvt=49120) No organisms seen BLOOD [id number] 19:00:00 Test Item Value Reference Range Comments CULTURE (BEAKER) (test roro=0716) No growth in 5 days BLOOD [id number] 19:00:00 Test Item Value Reference Range Comments CULTURE (BEAKER) (test arca=5650) No growth in 5 days BODY FLUID CELL COUNT WITH [id number] 15:04:00 Test Item Value Reference Range Comments APPEARANCE FLUID (BEAKER) (test Hazy Clear vxpm=070) COLOR FLUID (BEAKER) (test Straw Colorless, Straw utpq=768) RBC FLUID (BEAKER) (test 1220 /uL <=1 kosl=485) ADJUSTED WBC FLUID (BEAKER) 193 /cu mm <=5 (test ypnh=7241) LINING CELLS (BEAKER) (test 14 /cu mm <=1 rvds=1739) NEUTROPHILS FLUID (BEAKER) 44 % (test idio=0715) LYMPHS FLUID (BEAKER) (test 26 % seul=161) MONO/MACROPHAGE FLUID (BEAKER) 30 % (test lkpy=562) EOSINOPHILS FLUID (BEAKER) 0 % (test cwnw=479) BASO FLUID (BEAKER) (test 0 % wgga=668) INTERPRETATION-210 (BEAKER) Negative for malignant (test cugv=7703) cells. FVJY-LKXJFLULLQF-214 (BEAKER) Stanislav Sofia M.D. (test lbpb=0890) (electronic signature) CONTAINER BODY FLUID (BEAKER) Sterile Cup (test nxvi=6855) BASIC METABOLIC [id number] 03:33:00 Test Item Value Reference Range Comments SODIUM (BEAKER) (test 134 meq/L 135-148 vqbu=907) POTASSIUM (BEAKER) (test 3.5 meq/L 3.5-5.5 zxup=257) CHLORIDE (BEAKER) (test 107 meq/L 98-106 uyux=103) CO2 (BEAKER) (test 15 meq/L 20-31 uoam=420) BLOOD UREA NITROGEN 22 mg/dL 10-26 (BEAKER) (test enuu=163) CREATININE (BEAKER) (test 1.51 mg/dL 0.50-1.20 gyhs=343) GLUCOSE RANDOM (BEAKER) 105 mg/dL 70-110 (test nokx=411) CALCIUM (BEAKER) (test 9.7 mg/dL 8.5-10.5 qcrd=296) EGFR (BEAKER) (test 37 mL/min/1.73 sq m ESTIMATED GFR IS NOT mrzm=8334) ACCURATE CREATININE CLEARANCE IN PREDICTING GLOMERULAR FILTRATION RATE. ESTIMATED GFR IS NOT APPLICABLE FOR DIALYSIS PATIENTS. Specimen slightly ictericU/S, [id number] 16:05:00Reason for exam:-& gt;ascites, please only remove about 3L, pt with ZUNILDA too, dont want to shift fluidbalanceFINAL REPORT Ultrasound guided paracentesis , 05/26/2018. Clinical History:Ascites. Sedation: None. Utilization Management Rn: Vishnu Biggs MD Personnel And Payroll Technician: None. Estimated Blood Loss: < 1 cc. [...] achieved with 1 % lidocaine, a 5 Japanese one-step catheter was advanced into the peritoneal cavity under ultrasound guidance. After completion of drainage, the catheter was removed. There was no evidence ofcomplication. Impression:Successful ultrasound guided paracentesis. Signed: Vishnu Biggs [facility] Verified Date/ Time: 05/26/2018 16:05:11 Reading Location: [facility] Radiology Reading Room COMPREHENSIVE METABOLIC [id number] 05:55:00 Test Item Value Reference Range Comments TOTAL PROTEIN (BEAKER) 7.5 gm/dL 6.0-8.5 (test gnqi=168) ALBUMIN (BEAKER) (test 3.9 g/dL 3.5-5.0 imbx=6193) ALKALINE PHOSPHATASE 97 U/L 30-115 (BEAKER) (test znjk=919) BILIRUBIN TOTAL (BEAKER) 2.3 mg/dL 0.1-1.3 (test kocl=264) SODIUM (BEAKER) (test 134 meq/L 135-148 nfqh=572) POTASSIUM (BEAKER) (test 3.7 meq/L 3.5-5.5 cqse=910) CHLORIDE (BEAKER) (test 105 meq/L 98-106 hutl=254) CO2 (BEAKER) (test 16 meq/L 20-31 gmaj=061) BLOOD UREA NITROGEN 25 mg/dL 10-26 (BEAKER) (test dawl=102) CREATININE (BEAKER) (test 1.74 mg/dL 0.50-1.20 qqem=006) GLUCOSE RANDOM (BEAKER) 116 mg/dL 70-110 (test cqlp=587) CALCIUM (BEAKER) (test 9.6 mg/dL 8.5-10.5 oakd=956) AST (SGOT) (BEAKER) (test 44 U/L 5-40 twgt=288) ALT (SGPT) (BEAKER) (test 23 U/L 6-50 fyud=358) EGFR (BEAKER) (test 31 mL/min/1.73 sq m ESTIMATED GFR IS NOT rlev=1915) ACCURATE CREATININE CLEARANCE IN PREDICTING GLOMERULAR FILTRATION RATE. ESTIMATED GFR IS NOT APPLICABLE FOR DIALYSIS PATIENTS. [id number] 05:51:00 Test Item Value Reference Range Comments POTASSIUM (BEAKER) (test mfdc=526) 3.7 meq/L 3.5-5.5 [id number] 05:51:00 Test Item Value Reference Range Comments MAGNESIUM (BEAKER) (test lccb=231) 2.1 mg/dL 1.5-3.0 [id number] 05:31:00 Test Item Value Reference Range Comments AMMONIA (BEAKER) (test kbvs=097) 134 mol/L 12-72 URINE [id number] 12:48:00 Test Item Value Reference Range Comments CULTURE (BEAKER) (test vubb=0674) No growth BASIC METABOLIC [id number] 04:24:00 Test Item Value Reference Range Comments SODIUM (BEAKER) (test 131 meq/L 135-148 lque=567) POTASSIUM (BEAKER) (test 3.5 meq/L 3.5-5.5 rzhl=652) CHLORIDE (BEAKER) (test 103 meq/L 98-106 wzxg=020) CO2 (BEAKER) (test 17 meq/L 20-31 rwvm=655) BLOOD UREA NITROGEN 27 mg/dL 10-26 (BEAKER) (test emjg=246) CREATININE (BEAKER) (test 2.29 mg/dL 0.50-1.20 dwkf=512) GLUCOSE RANDOM (BEAKER) 93 mg/dL 70-110 (test pgtp=276) CALCIUM (BEAKER) (test 9.2 mg/dL 8.5-10.5 sohi=181) EGFR (BEAKER) (test 23 mL/min/1.73 sq m ESTIMATED GFR IS NOT bkam=8437) ACCURATE CREATININE CLEARANCE IN PREDICTING GLOMERULAR FILTRATION RATE. ESTIMATED GFR IS NOT APPLICABLE FOR DIALYSIS PATIENTS. CBC W/PLT COUNT & AUTO [id number] 03:55:00 Test Item Value Reference Range Comments WHITE BLOOD CELL COUNT (BEAKER) 4.5 K/ L 4.0-10.0 (test srkg=953) RED BLOOD CELL COUNT (BEAKER) 3.28 M/ L 4.00-5.00 (test yjpc=306) HEMOGLOBIN (BEAKER) (test 10.0 GM/DL 12.0-15.5 elod=498) HEMATOCRIT (BEAKER) (test 29.9 % 36.0-46.0 lxnw=289) MEAN CORPUSCULAR VOLUME 91.2 fL 82.0-99.0 (BEAKER) (test xxor=523) MEAN CORPUSCULAR HEMOGLOBIN 30.5 pg 27.0-33.0 (BEAKER) (test atgv=560) MEAN CORPUSCULAR HEMOGLOBIN 33.4 GM/DL 32.0-36.0 CONC (BEAKER) (test unhc=302) RED CELL DISTRIBUTION WIDTH 17.4 % 12.0-15.0 (BEAKER) (test vtgy=196) PLATELET COUNT (BEAKER) (test 105 K/CU MM 150-430 kklo=454) MEAN PLATELET VOLUME (BEAKER) 10.5 fL 6.0-11.5 MPV-Approximately 20% (test zcbb=285) positive bias due to method change. NUCLEATED RED BLOOD CELLS 0 /100 WBC 0-0 (BEAKER) (test rnjc=898) NEUTROPHILS RELATIVE PERCENT 71 % (BEAKER) (test gwks=492) LYMPHOCYTES RELATIVE PERCENT 8 % (BEAKER) (test wccj=544) MONOCYTES RELATIVE PERCENT 13 % (BEAKER) (test wkzq=277) EOSINOPHILS RELATIVE PERCENT 6 % (BEAKER) (test iedh=531) BASOPHILS RELATIVE PERCENT 1 % (BEAKER) (test oupr=837) NEUTROPHILS ABSOLUTE COUNT 3.22 K/ L 1.80-8.00 (BEAKER) (test bryv=711) LYMPHOCYTES ABSOLUTE COUNT 0.38 K/ L 1.48-4.50 (BEAKER) (test qlxf=302) MONOCYTES ABSOLUTE COUNT 0.57 K/ L 0.00-1.30 (BEAKER) (test umvd=088) EOSINOPHILS ABSOLUTE COUNT 0.29 K/ L 0.00-0.50 (BEAKER) (test uxyp=287) BASOPHILS ABSOLUTE COUNT 0.05 K/ L 0.00-0.20 (BEAKER) (test fjrh=460) IMMATURE GRANULOCYTES-RELATIVE 0 % 0-0 PERCENT (BEAKER) (test cklg=3372) HEPATITIS PANEL, [id number] 20:47:00 Test Item Value Reference Range Comments HEPATITIS A IGM ANTIBODY (BEAKER) (test Nonreactive Nonreactive zvmr=495) HEPATITIS B CORE IGM ANTIBODY (BEAKER) (test Nonreactive Nonreactive rios=448) HEPATITIS C ANTIBODY (BEAKER) (test hycf=969) Nonreactive Nonreactive HEPATITIS B SURFACE ANTIGEN (2) (BEAKER) (test Nonreactive Nonreactive xade=3563) ALPHA FETOPROTEIN (AFP), TUMOR [id number] 19:52:00 Test Item Value Reference Range Comments ALPHA-FETOPROTEIN (BEAKER) (test cpkr=4670) 5.5 ng/mL <10.0 CREATININE, RANDOM [id number] 14:08:00 Test Item Value Reference Range Comments CREATININE URINE (BEAKER) (test ryji=038) 42.7 mg/dL Reference Range: No NormalsSODIUM, RANDOM [id number] 14:08:00 Test Item Value Reference Range Comments SODIUM URINE (BEAKER) (test zmsv=703) 28 meq/L Reference Range: No NormalsOCCULT BLOOD, [id number] 13:56:00 Test Item Value Reference Range Comments FECAL OCCULT BLOOD (BEAKER) (test kcsh=568) Positive Negative U/S, RENAL, [id number] 11:53:00Reason for exam:->akiFINAL REPORT RENAL ULTRASOUND HISTORY: Acute kidney injury COMPARISON : Abdominal ultrasound 02/11/2018 TECHNIQUE: Real-time ultrasound of the kidneys was performed. FINDINGS: Thekidneys are normal in size. The right kidney measures 11.6 cm in length and the left kidney cjssjamz52.1 cm in length. Renal cortical thickness measures [...] MDReport Verified Date/Time: 05/24/2018 11:53:08 Reading Location: [address] Reading Room BASIC METABOLIC [id number] 05:13:00 Test Item Value Reference Range Comments SODIUM (BEAKER) (test 131 meq/L 135-148 yivg=888) POTASSIUM (BEAKER) (test 2.8 meq/L 3.5-5.5 kiwu=442) CHLORIDE (BEAKER) (test 101 meq/L 98-106 kirb=113) CO2 (BEAKER) (test 17 meq/L 20-31 ilvu=905) BLOOD UREA NITROGEN 28 mg/dL 10-26 (BEAKER) (test ymru=753) CREATININE (BEAKER) (test 2.85 mg/dL 0.50-1.20 rosb=377) GLUCOSE RANDOM (BEAKER) 91 mg/dL 70-110 (test xnlh=670) CALCIUM (BEAKER) (test 9.0 mg/dL 8.5-10.5 bsoz=229) EGFR (BEAKER) (test 18 mL/min/1.73 sq m ESTIMATED GFR IS NOT jsfw=4654) ACCURATE CREATININE CLEARANCE IN PREDICTING GLOMERULAR FILTRATION RATE. ESTIMATED GFR IS NOT APPLICABLE FOR DIALYSIS PATIENTS. CBC W/PLT COUNT & AUTO [id number] 04:39:00 Test Item Value Reference Range Comments WHITE BLOOD CELL COUNT (BEAKER) 5.4 K/ L 4.0-10.0 (test kzto=639) RED BLOOD CELL COUNT (BEAKER) 2.26 M/ L 4.00-5.00 (test uwhj=939) HEMOGLOBIN (BEAKER) (test 7.2 GM/DL 12.0-15.5 pali=580) HEMATOCRIT (BEAKER) (test 21.3 % 36.0-46.0 bgkd=322) MEAN CORPUSCULAR VOLUME 94.2 fL 82.0-99.0 (BEAKER) (test lngj=054) MEAN CORPUSCULAR HEMOGLOBIN 31.9 pg 27.0-33.0 (BEAKER) (test coho=550) MEAN CORPUSCULAR HEMOGLOBIN 33.8 GM/DL 32.0-36.0 CONC (BEAKER) (test rlyj=252) RED CELL DISTRIBUTION WIDTH 17.1 % 12.0-15.0 (BEAKER) (test dbsr=313) PLATELET COUNT (BEAKER) (test 98 K/CU MM 150-430 ojix=772) MEAN PLATELET VOLUME (BEAKER) 10.4 fL 6.0-11.5 MPV-Approximately 20% (test blld=231) positive bias due to method change. NUCLEATED RED BLOOD CELLS 0 /100 WBC 0-0 (BEAKER) (test qouj=857) NEUTROPHILS RELATIVE PERCENT 77 % (BEAKER) (test csif=179) LYMPHOCYTES RELATIVE PERCENT 7 % (BEAKER) (test rqoc=559) MONOCYTES RELATIVE PERCENT 10 % (BEAKER) (test ieyj=006) EOSINOPHILS RELATIVE PERCENT 5 % (BEAKER) (test nnhy=577) BASOPHILS RELATIVE PERCENT 1 % (BEAKER) (test cxug=359) NEUTROPHILS ABSOLUTE COUNT 4.15 K/ L 1.80-8.00 (BEAKER) (test afcl=163) LYMPHOCYTES ABSOLUTE COUNT 0.35 K/ L 1.48-4.50 (BEAKER) (test winu=062) MONOCYTES ABSOLUTE COUNT 0.55 K/ L 0.00-1.30 (BEAKER) (test ynur=290) EOSINOPHILS ABSOLUTE COUNT 0.27 K/ L 0.00-0.50 (BEAKER) (test iugv=181) BASOPHILS ABSOLUTE COUNT 0.04 K/ L 0.00-0.20 (BEAKER) (test luuq=099) IMMATURE GRANULOCYTES-RELATIVE 0 % 0-0 PERCENT (BEAKER) (test kmes=2392) BASIC METABOLIC [id number] 19:11:00 Test Item Value Reference Range Comments SODIUM (BEAKER) (test 130 meq/L 135-148 ohbd=089) POTASSIUM (BEAKER) (test 3.8 meq/L 3.5-5.5 Specimen slightly kuzs=308) hemolyzed CHLORIDE (BEAKER) (test 100 meq/L 98-106 fgzc=283) CO2 (BEAKER) (test 17 meq/L 20-31 ukjf=114) BLOOD UREA NITROGEN 27 mg/dL 10-26 (BEAKER) (test lscl=301) CREATININE (BEAKER) (test 2.86 mg/dL 0.50-1.20 Specimen slightly susm=512) hemolyzed GLUCOSE RANDOM (BEAKER) 97 mg/dL 70-110 (test leya=789) CALCIUM (BEAKER) (test 8.8 mg/dL 8.5-10.5 rnex=460) EGFR (BEAKER) (test 18 mL/min/1.73 sq m ESTIMATED GFR IS NOT kjhb=7422) ACCURATE CREATININE CLEARANCE IN PREDICTING GLOMERULAR FILTRATION RATE. ESTIMATED GFR IS NOT APPLICABLE FOR DIALYSIS PATIENTS. CT, BRAIN, WITHOUT [id number] 17:56:00Reason for exam:->ALTERED MENTAL STATUSReason for exam:->BLOATEDReason [...] Silver Verified Date/Time: 05/23/2018 17:56:33 Reading Location: [facility] Radiology Reading Room COMPREHENSIVE METABOLIC [id number] 16:54:00 Test Item Value Reference Range Comments TOTAL PROTEIN (BEAKER) 7.2 gm/dL 6.0-8.5 Specimen slightly (test jviw=915) hemolyzed ALBUMIN (BEAKER) (test 3.5 g/dL 3.5-5.0 Specimen slightly nbmc=5531) hemolyzed ALKALINE PHOSPHATASE 122 U/L 30-115 (BEAKER) (test ylkg=529) BILIRUBIN TOTAL (BEAKER) 1.5 mg/dL 0.1-1.3 Specimen slightly (test uhak=209) hemolyzed SODIUM (BEAKER) (test 131 meq/L 135-148 ntre=360) POTASSIUM (BEAKER) (test 2.9 meq/L 3.5-5.5 Specimen slightly idqi=235) hemolyzed CHLORIDE (BEAKER) (test 101 meq/L 98-106 mfxl=200) CO2 (BEAKER) (test 16 meq/L 20-31 bfnc=007) BLOOD UREA NITROGEN 27 mg/dL 10-26 (BEAKER) (test seqx=856) CREATININE (BEAKER) (test 2.98 mg/dL 0.50-1.20 Specimen slightly ypwy=508) hemolyzed GLUCOSE RANDOM (BEAKER) 99 mg/dL 70-110 (test yfmc=154) CALCIUM (BEAKER) (test 8.9 mg/dL 8.5-10.5 ruek=656) AST (SGOT) (BEAKER) (test 53 U/L 5-40 Specimen slightly vggf=969) hemolyzed ALT (SGPT) (BEAKER) (test 23 U/L 6-50 Specimen slightly pbwo=234) hemolyzed EGFR (BEAKER) (test 17 mL/min/1.73 sq m ESTIMATED GFR IS NOT ohal=4298) ACCURATE CREATININE CLEARANCE IN PREDICTING GLOMERULAR FILTRATION RATE. ESTIMATED GFR IS NOT APPLICABLE FOR DIALYSIS PATIENTS. [id number] 16:38:00 Test Item Value Reference Range Comments LIPASE (BEAKER) (test befv=767) 82 U/L 8-78 PROTHROMBIN [id number] 16:28:00 Test Item Value Reference Range Comments PROTIME (BEAKER) (test covp=764) 16.1 seconds 11.8-14.4 INR (BEAKER) (test hdch=117) 1.3 1.2-1.5 RECOMMENDED COUMADIN/WARFARIN INR THERAPY RANGESSTANDARD DOSE: 2.0 - 3.0 Includes: PROPHYLAXIS forvenous thrombosis, systemic embolization; TREATMENT for venous thrombosis and/or pulmonary embolus.HIGH RISK: Target INR is 2.5-3.5 for patients with mechanical heart valves.CBC W/PLT COUNT & AUTO [id number] 16:26:00 Test Item Value Reference Range Comments WHITE BLOOD CELL COUNT (BEAKER) 7.1 K/ L 4.0-10.0 (test hmkj=156) RED BLOOD CELL COUNT (BEAKER) 2.50 M/ L 4.00-5.00 (test hagy=912) HEMOGLOBIN (BEAKER) (test 8.0 GM/DL 12.0-15.5 rsrl=898) HEMATOCRIT (BEAKER) (test 24.1 % 36.0-46.0 yqha=900) MEAN CORPUSCULAR VOLUME 96.4 fL 82.0-99.0 (BEAKER) (test typh=379) MEAN CORPUSCULAR HEMOGLOBIN 32.0 pg 27.0-33.0 (BEAKER) (test dhqo=618) MEAN CORPUSCULAR HEMOGLOBIN 33.2 GM/DL 32.0-36.0 CONC (BEAKER) (test tehy=939) RED CELL DISTRIBUTION WIDTH 17.3 % 12.0-15.0 (BEAKER) (test uqmy=971) PLATELET COUNT (BEAKER) (test 115 K/CU MM 150-430 xnlx=307) MEAN PLATELET VOLUME (BEAKER) 11.3 fL 6.0-11.5 MPV-Approximately 20% (test jtml=646) positive bias due to method change. NUCLEATED RED BLOOD CELLS 0 /100 WBC 0-0 (BEAKER) (test gkrv=979) NEUTROPHILS RELATIVE PERCENT 90 % (BEAKER) (test tnns=947) LYMPHOCYTES RELATIVE PERCENT 4 % (BEAKER) (test drcs=887) MONOCYTES RELATIVE PERCENT 4 % (BEAKER) (test crjf=739) EOSINOPHILS RELATIVE PERCENT 1 % (BEAKER) (test iuly=170) BASOPHILS RELATIVE PERCENT 1 % (BEAKER) (test tuuw=457) NEUTROPHILS ABSOLUTE COUNT 6.34 K/ L 1.80-8.00 (BEAKER) (test ubbh=725) LYMPHOCYTES ABSOLUTE COUNT 0.25 K/ L 1.48-4.50 (BEAKER) (test mdvn=226) MONOCYTES ABSOLUTE COUNT 0.30 K/ L 0.00-1.30 (BEAKER) (test kanr=648) EOSINOPHILS ABSOLUTE COUNT 0.10 K/ L 0.00-0.50 (BEAKER) (test sbcd=993) BASOPHILS ABSOLUTE COUNT 0.04 K/ L 0.00-0.20 (BEAKER) (test odxf=305) IMMATURE GRANULOCYTES-RELATIVE 0 % 0-0 PERCENT (BEAKER) (test ethb=9329) RAD, CHEST, 1 VIEW, NON [id number] 16:22:00Reason for exam:->altered mental statusShould this be performed at the bedside?->YesIs the patient ?->NoFINAL REPORT CHEST AP PORTABLE History provided: Altered mental status Heart size normal. Lungs clear and vascularity normal. IMPRESSION: Clear chest. Signed: Gonzalo Serranoeport Verified Date/ Time: 05/23/2018 16:22:47 Reading Location: [facility] Radiology Reading Room URINALYSIS W/ [id number] 16:19:00 Test Item Value Reference Range Comments COLOR (BEAKER) (test oolb=764) Yellow CLARITY (BEAKER) (test luqw=232) Hazy SPECIFIC GRAVITY UA (BEAKER) (test rsgd=449) 1.016 1.001-1.035 PH UA (BEAKER) (test ysfc=080) 5.0 5.0-8.0 PROTEIN UA (BEAKER) (test etlb=759) Negative Negative GLUCOSE UA (BEAKER) (test skmn=310) Negative Negative KETONES UA (BEAKER) (test rfwq=391) Negative Negative BILIRUBIN UA (BEAKER) (test sngf=911) Negative Negative BLOOD UA (BEAKER) (test pfgm=413) Negative Negative NITRITE UA (BEAKER) (test lbyk=731) Negative Negative LEUKOCYTE ESTERASE UA (BEAKER) (test hjxz=392) Negative Negative UROBILINOGEN UA (BEAKER) (test fznf=008) < mg/dL 0.2-1.0 RBC UA (BEAKER) (test yymv=565) 1 /HPF WBC UA (BEAKER) (test hklx=179) 1 /HPF BACTERIA (BEAKER) (test punm=127) Rare MUCUS (BEAKER) (test azcm=9947) Rare SQUAMOUS EPITHELIAL (BEAKER) (test xoss=981) < /HPF HYALINE CASTS (BEAKER) (test xsnw=045) 4 /LPF SOURCE(BEAKER) (test eluy=4142) LACTIC ACID, VENOUS, WHOLE [id number] 16:12:00 Test Item Value Reference Range Comments LACTATE BLOOD VENOUS (2) 2.0 mmol/L 0.5-2.2 Specimen moderately hemolyzed (BEAKER) (test ayds=1514) Effective 12/07/2015: Units/Reference Range ChangeNew: 0.5-2.2 mmol/L Previous: 5 -20 mg/[id number] 16:07:00 Test Item Value Reference Range Comments AMMONIA (BEAKER) (test 90 mol/L 12-72 Specimen moderately hemolyzed dsna=680) AFB CULTURE + [id number] 00:02:00 Test Item Value Reference Range Comments CULTURE (BEAKER) (test No acid-fast bacilli isolated ggby=9861) in 42 days AFB SMEAR (BEAKER) (test No acid fast bacilli seen ygod=117) FUNGUS CULTURE + [id number] 12:57:00 Test Item Value Reference Range Comments CULTURE (BEAKER) (test No fungus isolated in 28 days csfy=5011) FUNGUS SMEAR (BEAKER) (test No fungi seen aorm=0001) BODY FLUID CULTURE + GRAM [id number] 05:31:00 Test Item Value Reference Range Comments CULTURE (BEAKER) (test jots=7549) No growth GRAM STAIN RESULT (BEAKER) (test <1+ WBCs vlsc=3925) GRAM STAIN RESULT (BEAKER) (test No organisms seen bzvr=19215) ANAEROBIC [id number] 02:42:00 Test Item Value Reference Range Comments CULTURE (BEAKER) (test vdqu=6790) No anaerobes isolated POCT-GLUCOSE [id number] 13:58:00 Test Item Value Reference Range Comments POC-GLUCOSE METER (BEAKER) 119 mg/dL 70-110 TESTED AT [facility] [address] [facility] (test dnfp=7694) [facility] [address] CBC W/PLT COUNT & AUTO [id number] 09:22:00 Test Item Value Reference Range Comments WHITE BLOOD CELL COUNT (BEAKER) (test kwkc=468) 5.1 K/ L 3.5-10.5 RED BLOOD CELL COUNT (BEAKER) (test rkjc=097) 2.79 M/ L 3.93-5.22 HEMOGLOBIN (BEAKER) (test xiuc=304) 8.8 GM/DL 11.2-15.7 HEMATOCRIT (BEAKER) (test nrhw=134) 27.2 % 34.1-44.9 MEAN CORPUSCULAR VOLUME (BEAKER) (test vode=102) 97.5 fL 79.4-94.8 MEAN CORPUSCULAR HEMOGLOBIN (BEAKER) (test 31.5 pg 25.6-32.2 fipn=252) MEAN CORPUSCULAR HEMOGLOBIN CONC (BEAKER) (test 32.4 GM/DL 32.2-35.5 fpfn=429) RED CELL DISTRIBUTION WIDTH (BEAKER) (test 18.8 % 11.7-14.4 rvpm=152) PLATELET COUNT (BEAKER) (test ordi=552) 86 K/CU MM 150-450 MEAN PLATELET VOLUME (BEAKER) (test qrsa=037) 12.6 fL 9.4-12.3 NUCLEATED RED BLOOD CELLS (BEAKER) (test 0 /100 WBC 0-0 oiuk=368) NEUTROPHILS RELATIVE PERCENT (BEAKER) (test 73 % cwgj=498) LYMPHOCYTES RELATIVE PERCENT (BEAKER) (test 7 % tsey=416) MONOCYTES RELATIVE PERCENT (BEAKER) (test 12 % ixck=634) EOSINOPHILS RELATIVE PERCENT (BEAKER) (test 6 % uzff=974) BASOPHILS RELATIVE PERCENT (BEAKER) (test 1 % iegg=266) NEUTROPHILS ABSOLUTE COUNT (BEAKER) (test 3.63 K/ L 1.56-6.13 zovf=428) LYMPHOCYTES ABSOLUTE COUNT (BEAKER) (test 0.36 K/ L 1.18-3.74 nqua=662) MONOCYTES ABSOLUTE COUNT (BEAKER) (test prxd=793) 0.61 K/ L 0.24-0.36 EOSINOPHILS ABSOLUTE COUNT (BEAKER) (test 0.31 K/ L 0.04-0.36 vuvw=308) BASOPHILS ABSOLUTE COUNT (BEAKER) (test wngj=398) 0.06 K/ L 0.01-0.08 IMMATURE GRANULOCYTES-RELATIVE PERCENT (BEAKER) 0 % 0-1 (test kxgx=2636) CBC (HEMOGRAM ONLY)2018-02-15 09:16:00 Test Item Value Reference Range Comments WHITE BLOOD CELL COUNT (BEAKER) (test lqfx=716) 5.1 K/ L 3.5-10.5 RED BLOOD CELL COUNT (BEAKER) (test swsc=734) 2.79 M/ L 3.93-5.22 HEMOGLOBIN (BEAKER) (test rfhb=100) 8.8 GM/DL 11.2-15.7 HEMATOCRIT (BEAKER) (test wkqk=235) 27.2 % 34.1-44.9 MEAN CORPUSCULAR VOLUME (BEAKER) (test konw=397) 97.5 fL 79.4-94.8 MEAN CORPUSCULAR HEMOGLOBIN (BEAKER) (test 31.5 pg 25.6-32.2 oqnt=555) MEAN CORPUSCULAR HEMOGLOBIN CONC (BEAKER) (test 32.4 GM/DL 32.2-35.5 iwxx=874) RED CELL DISTRIBUTION WIDTH (BEAKER) (test 18.8 % 11.7-14.4 ceso=370) PLATELET COUNT (BEAKER) (test cppt=739) 86 K/CU MM 150-450 MEAN PLATELET VOLUME (BEAKER) (test npdt=172) 12.6 fL 9.4-12.3 NUCLEATED RED BLOOD CELLS (BEAKER) (test 0 /100 WBC 0-0 kwbh=846) POCT-GLUCOSE [id number] 08:54:00 Test Item Value Reference Range Comments POC-GLUCOSE METER (BEAKER) 135 mg/dL 70-110 TESTED AT [facility] [address] [facility] (test emui=9269) [facility] [address] [id number] 06:41:00 Test Item Value Reference Range Comments PHOSPHORUS (BEAKER) (test yltv=658) 3.5 mg/dL 2.3-4.7 [id number] 06:41:00 Test Item Value Reference Range Comments MAGNESIUM (BEAKER) (test ness=862) 1.7 mg/dL 1.6-2.6 BASIC METABOLIC [id number] 06:41:00 Test Item Value Reference Range Comments SODIUM (BEAKER) (test 136 meq/L 136-145 ooei=172) POTASSIUM (BEAKER) (test 3.2 meq/L 3.5-5.1 dynf=557) CHLORIDE (BEAKER) (test 112 meq/L 98-107 plwk=467) CO2 (BEAKER) (test 14 meq/L 22-29 ehkw=208) BLOOD UREA NITROGEN 14 mg/dL 7-21 (BEAKER) (test lxoy=555) CREATININE (BEAKER) (test 0.71 mg/dL 0.57-1.25 mjlo=098) GLUCOSE RANDOM (BEAKER) 92 mg/dL 70-105 (test agnq=397) CALCIUM (BEAKER) (test 8.9 mg/dL 8.4-10.2 kchq=351) EGFR (BEAKER) (test 88 mL/min/1.73 sq m ESTIMATED GFR IS NOT fpbf=1342) ACCURATE CREATININE CLEARANCE IN PREDICTING GLOMERULAR FILTRATION RATE. ESTIMATED GFR IS NOT APPLICABLE FOR DIALYSIS PATIENTS. HEPATIC FUNCTION [id number] 06:41:00 Test Item Value Reference Range Comments TOTAL PROTEIN (BEAKER) (test zyyp=732) 6.3 gm/dL 6.0-8.3 ALBUMIN (BEAKER) (test hpsy=7424) 3.9 g/dL 3.5-5.0 BILIRUBIN TOTAL (BEAKER) (test xgtf=959) 1.7 mg/dL 0.2-1.2 BILIRUBIN DIRECT (BEAKER) (test uwwe=570) 1.0 mg/dL 0.1-0.5 ALKALINE PHOSPHATASE (BEAKER) (test fjpa=818) 126 U/L 40-150 AST (SGOT) (BEAKER) (test iddt=626) 118 U/L 5-34 ALT (SGPT) (BEAKER) (test bodu=857) 56 U/L 6-55 BLOOD [id number] 06:00:00 Test Item Value Reference Range Comments CULTURE (BEAKER) (test mara=7922) No growth in 5 days BLOOD [id number] 06:00:00 Test Item Value Reference Range Comments CULTURE (BEAKER) (test ahsd=6024) No growth in 5 days POCT-GLUCOSE [id number] 21:33:00 Test Item Value Reference Range Comments POC-GLUCOSE METER (BEAKER) 126 mg/dL 70-110 TESTED AT [place] [id number] [facility] (test jcqt=7743) [facility] [id number] BODY FLUID CELL COUNT WITH [id number] 20:39:00 Test Item Value Reference Range Comments APPEARANCE FLUID (BEAKER) (test lbus=783) Bloody Clear COLOR FLUID (BEAKER) (test uziw=674) Red Colorless, Straw RBC FLUID (BEAKER) (test bjmk=769) [address] /cu mm <=1 ADJUSTED WBC FLUID (BEAKER) (test vydq=8202) 206 /cu mm <=5 LINING CELLS (BEAKER) (test jlzr=9277) 4 /cu mm <=1 NEUTROPHILS FLUID (BEAKER) (test vbhd=0674) 50 % LYMPHS FLUID (BEAKER) (test suxz=989) 5 % MONO/MACROPHAGE FLUID (BEAKER) (test ebvq=327) 45 % EOSINOPHILS FLUID (BEAKER) (test lrag=931) 0 % BASO FLUID (BEAKER) (test qkvs=765) 0 % CONTAINER BODY FLUID (BEAKER) (test vmxu=2255) EDTA Tube TISSUE [id number] 18:33:00Surgical Pathology Report Case: [id number] Authorizing Provider: Tamera Mayorga MD Collected: 02/11/2018 2303 Ordering Location: [place] [address] ICU Received: 02/11/2018 1613 Pathologist: Herminia Hope MD Specimen: Hernia Sac, Umbilical SKIN AND HERNIA SAC, EXCISION:- SKIN WITH ULCER, NECROSIS, HERNIA WITH FIBROSIS, ADHESION AND CHRONIC INFLAMMATION Signing Pathologist Direct Phone Line: [phone] umbilical hernia Hernia sac umbilical The specimen is received in a formalin-filled container labeled with the patient's information and labeled "umbilical hernial sac" and consists of hemorrhagic membranous tissue measuring 6 x 3 x 0.2 cm with overlying brown skin measuring 5.5 x 3 x 0.3 cm, submitted in A1 and A2. There are no areas of suspicion. CG/ew PerformedPOCT-GLUCOSE [id number] 18:27:00 Test Item Value Reference Range Comments POC-GLUCOSE METER (BEAKER) 152 mg/dL 70-110 TESTED AT [facility] [address] [place] [address] (test fcsd=0271) [facility] [address] U/S, [id number] 17:34:00Send fluid for cell ct \\T\\ diff, [...] MDReport Verified Date/Time: 02/14/2018 17:34:56 Reading Location: [facility] [id number] Ultrasound Reading Room [id number] 15:56:00 Test Item Value Reference Range Comments PARTIAL THROMBOPLASTIN TIME (BEAKER) (test 28.9 seconds 22.5-36.0 wgxv=496) PROTHROMBIN [id number] 15:55:00 Test Item Value Reference Range Comments PROTIME (BEAKER) (test uwlg=295) 18.3 seconds 11.7-14.7 INR (BEAKER) (test xzeh=511) 1.5 <=5.9 RECOMMENDED COUMADIN/WARFARIN INR THERAPY RANGESSTANDARD DOSE: 2.0 - 3.0 Includes: PROPHYLAXIS forvenous thrombosis, systemic embolization; TREATMENT for venous thrombosis and/or pulmonary embolus.HIGH RISK: Target INR is 2.5-3.5 for patients with mechanical heart valves.CBC W/PLT COUNT & AUTO [id number] 15:49:00 Test Item Value Reference Range Comments WHITE BLOOD CELL COUNT (BEAKER) (test zoed=373) 6.5 K/ L 3.5-10.5 RED BLOOD CELL COUNT (BEAKER) (test njsc=168) 2.69 M/ L 3.93-5.22 HEMOGLOBIN (BEAKER) (test oqhg=287) 8.5 GM/DL 11.2-15.7 HEMATOCRIT (BEAKER) (test yhrq=151) 25.9 % 34.1-44.9 MEAN CORPUSCULAR VOLUME (BEAKER) (test qaug=806) 96.3 fL 79.4-94.8 MEAN CORPUSCULAR HEMOGLOBIN (BEAKER) (test 31.6 pg 25.6-32.2 kpap=650) MEAN CORPUSCULAR HEMOGLOBIN CONC (BEAKER) (test 32.8 GM/DL 32.2-35.5 mooh=317) RED CELL DISTRIBUTION WIDTH (BEAKER) (test 19.0 % 11.7-14.4 anks=736) PLATELET COUNT (BEAKER) (test nuyz=883) 63 K/CU MM 150-450 MEAN PLATELET VOLUME (BEAKER) (test qnzp=717) 11.6 fL 9.4-12.3 NUCLEATED RED BLOOD CELLS (BEAKER) (test 0 /100 WBC 0-0 lbqg=130) NEUTROPHILS RELATIVE PERCENT (BEAKER) (test 82 % nfie=048) LYMPHOCYTES RELATIVE PERCENT (BEAKER) (test 4 % sigw=281) MONOCYTES RELATIVE PERCENT (BEAKER) (test 9 % sxkk=718) EOSINOPHILS RELATIVE PERCENT (BEAKER) (test 3 % pkkl=005) BASOPHILS RELATIVE PERCENT (BEAKER) (test 1 % pdgd=866) NEUTROPHILS ABSOLUTE COUNT (BEAKER) (test 5.30 K/ L 1.56-6.13 vwwy=500) LYMPHOCYTES ABSOLUTE COUNT (BEAKER) (test 0.26 K/ L 1.18-3.74 ymod=185) MONOCYTES ABSOLUTE COUNT (BEAKER) (test zenx=585) 0.59 K/ L 0.24-0.36 EOSINOPHILS ABSOLUTE COUNT (BEAKER) (test 0.20 K/ L 0.04-0.36 emze=751) BASOPHILS ABSOLUTE COUNT (BEAKER) (test ktdk=278) 0.06 K/ L 0.01-0.08 IMMATURE GRANULOCYTES-RELATIVE PERCENT (BEAKER) 1 % 0-1 (test mtbw=4798) POCT-GLUCOSE [id number] 13:10:00 Test Item Value Reference Range Comments POC-GLUCOSE METER (BEAKER) 138 mg/dL 70-110 TESTED AT [address] (test pgww=7490) [facility] [address] SURGICALLY OBTAINED CULTURE + GRAM [id number] 11:29:00 Test Item Value Reference Range Comments CULTURE (BEAKER) (test psrz=7368) No growth GRAM STAIN RESULT (BEAKER) (test <1+ WBCs qxow=5177) GRAM STAIN RESULT (BEAKER) (test No organisms seen rchs=06893) CBC W/PLT COUNT & AUTO [id number] 09:31:00 Test Item Value Reference Range Comments WHITE BLOOD CELL COUNT (BEAKER) (test vbws=041) 5.3 K/ L 3.5-10.5 RED BLOOD CELL COUNT (BEAKER) (test mddj=951) 2.76 M/ L 3.93-5.22 HEMOGLOBIN (BEAKER) (test zyjg=812) 8.5 GM/DL 11.2-15.7 HEMATOCRIT (BEAKER) (test fbas=973) 26.7 % 34.1-44.9 MEAN CORPUSCULAR VOLUME (BEAKER) (test zkto=132) 96.7 fL 79.4-94.8 MEAN CORPUSCULAR HEMOGLOBIN (BEAKER) (test 30.8 pg 25.6-32.2 gtxo=012) MEAN CORPUSCULAR HEMOGLOBIN CONC (BEAKER) (test 31.8 GM/DL 32.2-35.5 lzkc=943) RED CELL DISTRIBUTION WIDTH (BEAKER) (test 19.1 % 11.7-14.4 swpo=692) PLATELET COUNT (BEAKER) (test kkkg=426) 82 K/CU MM 150-450 MEAN PLATELET VOLUME (BEAKER) (test tnaw=721) 11.5 fL 9.4-12.3 NUCLEATED RED BLOOD CELLS (BEAKER) (test 0 /100 WBC 0-0 fbxm=469) NEUTROPHILS RELATIVE PERCENT (BEAKER) (test 79 % odbk=766) LYMPHOCYTES RELATIVE PERCENT (BEAKER) (test 6 % lhgz=969) MONOCYTES RELATIVE PERCENT (BEAKER) (test 10 % whin=965) EOSINOPHILS RELATIVE PERCENT (BEAKER) (test 3 % rdfm=202) BASOPHILS RELATIVE PERCENT (BEAKER) (test 1 % xeus=924) NEUTROPHILS ABSOLUTE COUNT (BEAKER) (test 4.21 K/ L 1.56-6.13 cbao=216) LYMPHOCYTES ABSOLUTE COUNT (BEAKER) (test 0.33 K/ L 1.18-3.74 dwww=143) MONOCYTES ABSOLUTE COUNT (BEAKER) (test pmlt=030) 0.55 K/ L 0.24-0.36 EOSINOPHILS ABSOLUTE COUNT (BEAKER) (test 0.17 K/ L 0.04-0.36 datz=067) BASOPHILS ABSOLUTE COUNT (BEAKER) (test eleu=251) 0.05 K/ L 0.01-0.08 IMMATURE GRANULOCYTES-RELATIVE PERCENT (BEAKER) 1 % 0-1 (test lvgt=8741) POCT-GLUCOSE [id number] 08:00:00 Test Item Value Reference Range Comments POC-GLUCOSE METER (BEAKER) 100 mg/dL 70-110 TESTED AT [facility] [address] [facility] (test ffvq=7735) [facility] [address] [id number] 07:25:00 Test Item Value Reference Range Comments PHOSPHORUS (BEAKER) (test dvde=287) 3.0 mg/dL 2.3-4.7 [id number] 07:25:00 Test Item Value Reference Range Comments MAGNESIUM (BEAKER) (test slmz=890) 2.0 mg/dL 1.6-2.6 HEPATIC FUNCTION [id number] 07:25:00 Test Item Value Reference Range Comments TOTAL PROTEIN (BEAKER) (test jbzc=285) 6.5 gm/dL 6.0-8.3 ALBUMIN (BEAKER) (test zptc=5182) 4.2 g/dL 3.5-5.0 BILIRUBIN TOTAL (BEAKER) (test dqix=520) 1.7 mg/dL 0.2-1.2 BILIRUBIN DIRECT (BEAKER) (test orad=383) 1.1 mg/dL 0.1-0.5 ALKALINE PHOSPHATASE (BEAKER) (test cqrr=700) 140 U/L 40-150 AST (SGOT) (BEAKER) (test xeqh=841) 182 U/L 5-34 ALT (SGPT) (BEAKER) (test mrhr=495) 58 U/L 6-55 POCT-GLUCOSE [id number] 23:06:00 Test Item Value Reference Range Comments POC-GLUCOSE METER (BEAKER) 106 mg/dL 70-110 TESTED AT [address] (test lqhw=5214) [facility] [address] POCT-GLUCOSE [id number] 17:34:00 Test Item Value Reference Range Comments POC-GLUCOSE METER (BEAKER) 149 mg/dL 70-110 TESTED AT [address] (test ujta=5607) [facility] [address] POCT-GLUCOSE [id number] 11:39:00 Test Item Value Reference Range Comments POC-GLUCOSE METER (BEAKER) 117 mg/dL 70-110 TESTED AT [address] (test gacq=5238) [facility] [address] POCT-GLUCOSE [id number] 08:13:00 Test Item Value Reference Range Comments POC-GLUCOSE METER (BEAKER) 126 mg/dL 70-110 TESTED AT [address] (test fxdh=1909) [facility] [address] [id number] 06:41:00 Test Item Value Reference Range Comments PHOSPHORUS (BEAKER) (test pgyr=488) 2.1 mg/dL 2.3-4.7 [id number] 06:41:00 Test Item Value Reference Range Comments MAGNESIUM (BEAKER) (test mjng=318) 2.1 mg/dL 1.6-2.6 HEPATIC FUNCTION [id number] 06:41:00 Test Item Value Reference Range Comments TOTAL PROTEIN (BEAKER) (test prjw=788) 6.6 gm/dL 6.0-8.3 ALBUMIN (BEAKER) (test tzih=7268) 4.5 g/dL 3.5-5.0 BILIRUBIN TOTAL (BEAKER) (test wjfg=748) 1.0 mg/dL 0.2-1.2 BILIRUBIN DIRECT (BEAKER) (test wlqn=636) 0.6 mg/dL 0.1-0.5 ALKALINE PHOSPHATASE (BEAKER) (test egwy=076) 56 U/L 40-150 AST (SGOT) (BEAKER) (test ocyu=962) 51 U/L 5-34 ALT (SGPT) (BEAKER) (test wdjv=295) 17 U/L 6-55 COMPREHENSIVE METABOLIC [id number] 06:41:00 Test Item Value Reference Range Comments TOTAL PROTEIN (BEAKER) 6.6 gm/dL 6.0-8.3 (test grmt=231) ALBUMIN (BEAKER) (test 4.5 g/dL 3.5-5.0 bqpb=8961) ALKALINE PHOSPHATASE 56 U/L 40-150 (BEAKER) (test jutz=960) BILIRUBIN TOTAL (BEAKER) 1.0 mg/dL 0.2-1.2 (test ilyg=748) SODIUM (BEAKER) (test 138 meq/L 136-145 ttdh=641) POTASSIUM (BEAKER) (test 3.3 meq/L 3.5-5.1 hofd=873) CHLORIDE (BEAKER) (test 114 meq/L 98-107 bogi=619) CO2 (BEAKER) (test 15 meq/L 22-29 qmww=233) BLOOD UREA NITROGEN 15 mg/dL 7-21 (BEAKER) (test goph=326) CREATININE (BEAKER) (test 0.83 mg/dL 0.57-1.25 wpje=210) GLUCOSE RANDOM (BEAKER) 108 mg/dL 70-105 (test zauq=705) CALCIUM (BEAKER) (test 9.0 mg/dL 8.4-10.2 xske=973) AST (SGOT) (BEAKER) (test 51 U/L 5-34 cbll=092) ALT (SGPT) (BEAKER) (test 17 U/L 6-55 spjm=786) EGFR (BEAKER) (test 73 mL/min/1.73 sq m ESTIMATED GFR IS NOT ivtc=5056) ACCURATE CREATININE CLEARANCE IN PREDICTING GLOMERULAR FILTRATION RATE. ESTIMATED GFR IS NOT APPLICABLE FOR DIALYSIS PATIENTS. CBC W/PLT COUNT & AUTO [id number] 06:25:00 Test Item Value Reference Range Comments WHITE BLOOD CELL COUNT (BEAKER) (test jmdd=039) 6.7 K/ L 3.5-10.5 RED BLOOD CELL COUNT (BEAKER) (test bhxd=329) 2.17 M/ L 3.93-5.22 HEMOGLOBIN (BEAKER) (test kssr=323) 6.8 GM/DL 11.2-15.7 HEMATOCRIT (BEAKER) (test nhrz=018) 21.8 % 34.1-44.9 MEAN CORPUSCULAR VOLUME (BEAKER) (test szeh=773) 100.5 fL 79.4-94.8 MEAN CORPUSCULAR HEMOGLOBIN (BEAKER) (test 31.3 pg 25.6-32.2 wfdk=632) MEAN CORPUSCULAR HEMOGLOBIN CONC (BEAKER) (test 31.2 GM/DL 32.2-35.5 jofx=257) RED CELL DISTRIBUTION WIDTH (BEAKER) (test 19.9 % 11.7-14.4 kyrf=209) PLATELET COUNT (BEAKER) (test pbgi=250) 84 K/CU MM 150-450 MEAN PLATELET VOLUME (BEAKER) (test bpcl=557) 11.1 fL 9.4-12.3 NUCLEATED RED BLOOD CELLS (BEAKER) (test 0 /100 WBC 0-0 twjz=203) NEUTROPHILS RELATIVE PERCENT (BEAKER) (test 84 % upqm=123) LYMPHOCYTES RELATIVE PERCENT (BEAKER) (test 4 % rzpz=515) MONOCYTES RELATIVE PERCENT (BEAKER) (test 12 % bzot=015) EOSINOPHILS RELATIVE PERCENT (BEAKER) (test 0 % ugov=442) BASOPHILS RELATIVE PERCENT (BEAKER) (test 0 % fpfe=240) NEUTROPHILS ABSOLUTE COUNT (BEAKER) (test 5.59 K/ L 1.56-6.13 zlmy=421) LYMPHOCYTES ABSOLUTE COUNT (BEAKER) (test 0.25 K/ L 1.18-3.74 prsg=379) MONOCYTES ABSOLUTE COUNT (BEAKER) (test lilr=419) 0.77 K/ L 0.24-0.36 EOSINOPHILS ABSOLUTE COUNT (BEAKER) (test 0.02 K/ L 0.04-0.36 mpnb=041) BASOPHILS ABSOLUTE COUNT (BEAKER) (test itfr=491) 0.00 K/ L 0.01-0.08 IMMATURE GRANULOCYTES-RELATIVE PERCENT (BEAKER) 1 % 0-1 (test comf=1785) SPIN/CONCENTRATION [id number] 15:23:00 Test Item Value Reference Range Comments CONCENTRATION CHARGED (BEAKER) (test nceu=5248) Done POCT-GLUCOSE [id number] 08:15:00 Test Item Value Reference Range Comments POC-GLUCOSE METER (BEAKER) 147 mg/dL 70-110 TESTED AT [address] (test qppc=8095) [facility] [address] HIV-1 ANTIGEN WITH HIV-1/2 [id number] 06:57:00 Test Item Value Reference Range Comments HIV-1 ANTIGEN WITH HIV 1\\T\\2 ANTIBODY (2) Nonreactive Nonreactive (BEAKER) (test oeiq=2636) [id number] 06:35:00 Test Item Value Reference Range Comments PHOSPHORUS (BEAKER) (test rvut=011) 2.8 mg/dL 2.3-4.7 [id number] 06:35:00 Test Item Value Reference Range Comments MAGNESIUM (BEAKER) (test posd=268) 1.9 mg/dL 1.6-2.6 BASIC METABOLIC [id number] 06:35:00 Test Item Value Reference Range Comments SODIUM (BEAKER) (test 133 meq/L 136-145 khfj=887) POTASSIUM (BEAKER) (test 3.9 meq/L 3.5-5.1 qdxz=460) CHLORIDE (BEAKER) (test 111 meq/L 98-107 ecxs=188) CO2 (BEAKER) (test 13 meq/L 22-29 vzye=155) BLOOD UREA NITROGEN 18 mg/dL 7-21 (BEAKER) (test cpog=371) CREATININE (BEAKER) (test 0.86 mg/dL 0.57-1.25 fvxk=506) GLUCOSE RANDOM (BEAKER) 142 mg/dL 70-105 (test gjdo=912) CALCIUM (BEAKER) (test 8.7 mg/dL 8.4-10.2 hnea=100) EGFR (BEAKER) (test 70 mL/min/1.73 sq m ESTIMATED GFR IS NOT igbg=4074) ACCURATE CREATININE CLEARANCE IN PREDICTING GLOMERULAR FILTRATION RATE. ESTIMATED GFR IS NOT APPLICABLE FOR DIALYSIS PATIENTS. HEPATIC FUNCTION [id number] 06:35:00 Test Item Value Reference Range Comments TOTAL PROTEIN (BEAKER) (test hedu=339) 6.4 gm/dL 6.0-8.3 ALBUMIN (BEAKER) (test qmkd=0395) 4.0 g/dL 3.5-5.0 BILIRUBIN TOTAL (BEAKER) (test gnun=525) 1.5 mg/dL 0.2-1.2 BILIRUBIN DIRECT (BEAKER) (test dbrf=708) 0.9 mg/dL 0.1-0.5 ALKALINE PHOSPHATASE (BEAKER) (test dlua=761) 46 U/L 40-150 AST (SGOT) (BEAKER) (test rsuk=760) 32 U/L 5-34 ALT (SGPT) (BEAKER) (test eaoq=761) 12 U/L 6-55 CBC W/PLT COUNT & AUTO [id number] 06:26:00 Test Item Value Reference Range Comments WHITE BLOOD CELL COUNT (BEAKER) (test kdtj=175) 6.4 K/ L 3.5-10.5 RED BLOOD CELL COUNT (BEAKER) (test ksfq=803) 2.47 M/ L 3.93-5.22 HEMOGLOBIN (BEAKER) (test tsqq=522) 7.5 GM/DL 11.2-15.7 HEMATOCRIT (BEAKER) (test bipl=284) 24.3 % 34.1-44.9 MEAN CORPUSCULAR VOLUME (BEAKER) (test odgh=173) 98.4 fL 79.4-94.8 MEAN CORPUSCULAR HEMOGLOBIN (BEAKER) (test 30.4 pg 25.6-32.2 gctp=670) MEAN CORPUSCULAR HEMOGLOBIN CONC (BEAKER) (test 30.9 GM/DL 32.2-35.5 gcnf=483) RED CELL DISTRIBUTION WIDTH (BEAKER) (test 20.0 % 11.7-14.4 qwee=041) PLATELET COUNT (BEAKER) (test zkep=244) 85 K/CU MM 150-450 MEAN PLATELET VOLUME (BEAKER) (test blts=413) 11.3 fL 9.4-12.3 NUCLEATED RED BLOOD CELLS (BEAKER) (test 0 /100 WBC 0-0 pymv=365) NEUTROPHILS RELATIVE PERCENT (BEAKER) (test 92 % mfiw=573) LYMPHOCYTES RELATIVE PERCENT (BEAKER) (test 3 % frlx=648) MONOCYTES RELATIVE PERCENT (BEAKER) (test 5 % skdk=666) EOSINOPHILS RELATIVE PERCENT (BEAKER) (test 0 % obhs=769) BASOPHILS RELATIVE PERCENT (BEAKER) (test 0 % vhxl=126) NEUTROPHILS ABSOLUTE COUNT (BEAKER) (test 5.89 K/ L 1.56-6.13 ljlr=782) LYMPHOCYTES ABSOLUTE COUNT (BEAKER) (test 0.19 K/ L 1.18-3.74 cixt=602) MONOCYTES ABSOLUTE COUNT (BEAKER) (test ofxu=323) 0.31 K/ L 0.24-0.36 EOSINOPHILS ABSOLUTE COUNT (BEAKER) (test 0.00 K/ L 0.04-0.36 posa=553) BASOPHILS ABSOLUTE COUNT (BEAKER) (test clvh=925) 0.00 K/ L 0.01-0.08 IMMATURE GRANULOCYTES-RELATIVE PERCENT (BEAKER) 1 % 0-1 (test hvmv=4810) POCT-GLUCOSE [id number] 00:47:00 Test Item Value Reference Range Comments POC-GLUCOSE METER (BEAKER) 220 mg/dL 70-110 TESTED AT [facility] [address] [facility] (test jaln=2669) [facility] [address] [id number] 19:57:00 Test Item Value Reference Range Comments PHOSPHORUS (BEAKER) (test uote=441) 2.9 mg/dL 2.3-4.7 [id number] 19:57:00 Test Item Value Reference Range Comments MAGNESIUM (BEAKER) (test mjvz=847) 1.7 mg/dL 1.6-2.6 [id number] 16:27:00 Test Item Value Reference Range Comments PROTIME (BEAKER) (test balu=111) 18.7 seconds 11.7-14.7 INR (BEAKER) (test nxhu=732) 1.6 <=5.9 PARTIAL THROMBOPLASTIN TIME (BEAKER) (test 36.5 seconds 22.5-36.0 musk=430) RECOMMENDED COUMADIN/WARFARIN INR THERAPY RANGESSTANDARD DOSE: 2.0 - 3.0 Includes: PROPHYLAXIS forvenous thrombosis, systemic embolization; TREATMENT for venous thrombosis and/or pulmonary embolus.HIGH RISK: Target INR is 2.5-3.5 for patients with mechanical heart valves.BASIC METABOLIC [id number] 16:24: 00 Test Item Value Reference Range Comments SODIUM (BEAKER) (test 136 meq/L 136-145 xtqs=542) POTASSIUM (BEAKER) (test 3.7 meq/L 3.5-5.1 ylah=633) CHLORIDE (BEAKER) (test 113 meq/L 98-107 rkqy=063) CO2 (BEAKER) (test 16 meq/L 22-29 hmvz=399) BLOOD UREA NITROGEN 20 mg/dL 7-21 (BEAKER) (test fhrr=904) CREATININE (BEAKER) (test 1.03 mg/dL 0.57-1.25 yvua=386) GLUCOSE RANDOM (BEAKER) 133 mg/dL 70-105 (test pxkk=373) CALCIUM (BEAKER) (test 8.2 mg/dL 8.4-10.2 gfvp=766) EGFR (BEAKER) (test 57 mL/min/1.73 sq m ESTIMATED GFR IS NOT jfaa=8268) ACCURATE CREATININE CLEARANCE IN PREDICTING GLOMERULAR FILTRATION RATE. ESTIMATED GFR IS NOT APPLICABLE FOR DIALYSIS PATIENTS. CBC W/PLT COUNT & AUTO [id number] 16:00:00 Test Item Value Reference Range Comments WHITE BLOOD CELL COUNT (BEAKER) (test csrw=104) 4.6 K/ L 3.5-10.5 RED BLOOD CELL COUNT (BEAKER) (test kuzj=756) 2.57 M/ L 3.93-5.22 HEMOGLOBIN (BEAKER) (test xvxd=289) 7.9 GM/DL 11.2-15.7 HEMATOCRIT (BEAKER) (test hnuh=951) 24.9 % 34.1-44.9 MEAN CORPUSCULAR VOLUME (BEAKER) (test ogri=494) 96.9 fL 79.4-94.8 MEAN CORPUSCULAR HEMOGLOBIN (BEAKER) (test 30.7 pg 25.6-32.2 ubos=478) MEAN CORPUSCULAR HEMOGLOBIN CONC (BEAKER) (test 31.7 GM/DL 32.2-35.5 ukrq=034) RED CELL DISTRIBUTION WIDTH (BEAKER) (test 20.0 % 11.7-14.4 pvsj=377) PLATELET COUNT (BEAKER) (test kxjh=334) 101 K/CU MM 150-450 MEAN PLATELET VOLUME (BEAKER) (test rqee=851) 10.5 fL 9.4-12.3 NUCLEATED RED BLOOD CELLS (BEAKER) (test 0 /100 WBC 0-0 dell=914) NEUTROPHILS RELATIVE PERCENT (BEAKER) (test 94 % krol=541) LYMPHOCYTES RELATIVE PERCENT (BEAKER) (test 3 % rpie=217) MONOCYTES RELATIVE PERCENT (BEAKER) (test 2 % cpdl=868) EOSINOPHILS RELATIVE PERCENT (BEAKER) (test 1 % uljo=219) BASOPHILS RELATIVE PERCENT (BEAKER) (test 1 % ywvg=331) NEUTROPHILS ABSOLUTE COUNT (BEAKER) (test 4.31 K/ L 1.56-6.13 vetg=302) LYMPHOCYTES ABSOLUTE COUNT (BEAKER) (test 0.12 K/ L 1.18-3.74 mweb=345) MONOCYTES ABSOLUTE COUNT (BEAKER) (test 0.10 K/ L 0.24-0.36 uuwx=403) EOSINOPHILS ABSOLUTE COUNT (BEAKER) (test 0.03 K/ L 0.04-0.36 sunh=746) BASOPHILS ABSOLUTE COUNT (BEAKER) (test 0.03 K/ L 0.01-0.08 xjir=536) IMMATURE GRANULOCYTES-RELATIVE PERCENT (BEAKER) 0 % 0-1 (test ptog=4253) HGB/HCT (H&H) - STAT [id number] 13:33:00 Test Item Value Reference Range Comments HEMOGLOBIN (BEAKER) (test drty=375) 8.7 g/dL 12.0-15.0 HEMATOCRIT (BEAKER) (test erin=048) 26.0 % 36.0-45.0 THIS IS A VENOUS SAMPLECALCIUM, [id number] 13:33:00 Test Item Value Reference Range Comments CALCIUM IONIZED (BEAKER) (test muop=336) 1.07 mmol/L 1.12-1.27 PH, BLOOD (BEAKER) (test impc=4135) 7.28 GLUCOSE-STAT [id number] 13:33:00 Test Item Value Reference Range Comments GLUCOSE RANDOM (BEAKER) (test zdnb=350) 122 mg/dL 70-110 THIS IS A VENOUS SAMPLETHIS IS A VENOUS SAMPLETHIS IS A VENOUS SAMPLESODIUM NA- STAT [id number] 13:32:00 Test Item Value Reference Range Comments SODIUM (BEAKER) (test wapt=135) 135 meq/L 135-148 THIS IS A VENOUS SAMPLETHIS IS A VENOUS SAMPLETHIS IS A VENOUS SAMPLEPOTASSIUM- STAT [id number] 13:32:00 Test Item Value Reference Range Comments POTASSIUM (BEAKER) (test dmjc=313) 3.9 meq/L 3.6-5.5 THIS IS A VENOUS SAMPLETHIS IS A VENOUS SAMPLETHIS IS A VENOUS SAMPLEU/S, ABDOMINAL, [id number] 09:32:00Reason for exam:->ascites, acute renal failure, hydronephrosisShould [...] MDReport Verified Date/Time: 02/11/2018 09:32:36 Reading Location: [place] [id number] Ultrasound Reading Room Electronically signed by: BELA RIOS M.D. on 05/2018 09:32 AMPOCT-GLUCOSE [id number] 08:05:00 Test Item Value Reference Range Comments POC-GLUCOSE METER (BEAKER) 117 mg/dL 70-110 TESTED AT [facility] [address] [facility] (test smoz=9554) [facility] [address] COMPREHENSIVE METABOLIC [id number] 07:53:00 Test Item Value Reference Range Comments TOTAL PROTEIN (BEAKER) 6.1 gm/dL 6.0-8.3 (test keok=436) ALBUMIN (BEAKER) (test 3.2 g/dL 3.5-5.0 rzpr=3241) ALKALINE PHOSPHATASE 58 U/L 40-150 (BEAKER) (test zblp=197) BILIRUBIN TOTAL (BEAKER) 1.6 mg/dL 0.2-1.2 (test jjxo=511) SODIUM (BEAKER) (test 135 meq/L 136-145 xqlv=532) POTASSIUM (BEAKER) (test 3.5 meq/L 3.5-5.1 oaud=244) CHLORIDE (BEAKER) (test 111 meq/L 98-107 bhvc=017) CO2 (BEAKER) (test 17 meq/L 22-29 jwcy=069) BLOOD UREA NITROGEN 25 mg/dL 7-21 (BEAKER) (test zuyz=227) CREATININE (BEAKER) (test 1.29 mg/dL 0.57-1.25 hsvh=398) GLUCOSE RANDOM (BEAKER) 110 mg/dL 70-105 (test nuxu=953) CALCIUM (BEAKER) (test 8.5 mg/dL 8.4-10.2 pgim=484) AST (SGOT) (BEAKER) (test 39 U/L 5-34 qceo=052) ALT (SGPT) (BEAKER) (test 13 U/L 6-55 nphu=860) EGFR (MEREDITH) (test 44 mL/min/1.73 sq m ESTIMATED GFR IS NOT snym=2322) ACCURATE CREATININE CLEARANCE IN PREDICTING GLOMERULAR FILTRATION RATE. ESTIMATED GFR IS NOT APPLICABLE FOR DIALYSIS PATIENTS. CT, [id number] 07:50:00FINAL REPORT HISTORY : Hernia, complicated Technique: [...] colopathy or underdistention. 5. Cholelithiasis. Signed: Jesse Hathawayeport Verified Date/ Time: 02/11/2018 07:50:19 Reading Location: [facility] Diagnostic Imaging Reading Room - [place] [id number] Electronically signed by: JESSE HATHAWAY M.D. on 2017 07:50 [id number] 07:06:00 Test Item Value Reference Range Comments PROTIME (BEAKER) (test ewsp=462) 17.3 seconds 11.7-14.7 INR (BEAKER) (test rjcg=975) 1.4 <=5.9 PARTIAL THROMBOPLASTIN TIME (BEAKER) (test 34.7 seconds 22.5-36.0 zocj=773) RECOMMENDED COUMADIN/WARFARIN INR THERAPY RANGESSTANDARD DOSE: 2.0 - 3.0 Includes: PROPHYLAXIS forvenous thrombosis, systemic embolization; TREATMENT for venous thrombosis and/or pulmonary embolus.HIGH RISK: Target INR is 2.5-3.5 for patients with mechanical heart valves.CBC W/PLT COUNT & AUTO [id number] 06:22:00 Test Item Value Reference Range Comments WHITE BLOOD CELL COUNT (BEAKER) (test iebw=420) 4.1 K/ L 3.5-10.5 RED BLOOD CELL COUNT (BEAKER) (test qhhi=508) 2.36 M/ L 3.93-5.22 HEMOGLOBIN (BEAKER) (test poyn=756) 7.5 GM/DL 11.2-15.7 HEMATOCRIT (BEAKER) (test rdez=301) 22.9 % 34.1-44.9 MEAN CORPUSCULAR VOLUME (BEAKER) (test dzus=295) 97.0 fL 79.4-94.8 MEAN CORPUSCULAR HEMOGLOBIN (BEAKER) (test 31.8 pg 25.6-32.2 rvom=119) MEAN CORPUSCULAR HEMOGLOBIN CONC (BEAKER) (test 32.8 GM/DL 32.2-35.5 lnah=038) RED CELL DISTRIBUTION WIDTH (BEAKER) (test 21.1 % 11.7-14.4 prpb=456) PLATELET COUNT (BEAKER) (test vwpu=959) 131 K/CU MM 150-450 MEAN PLATELET VOLUME (BEAKER) (test tmcs=718) 11.0 fL 9.4-12.3 NUCLEATED RED BLOOD CELLS (BEAKER) (test 0 /100 WBC 0-0 vkfu=040) NEUTROPHILS RELATIVE PERCENT (BEAKER) (test 69 % xyao=565) LYMPHOCYTES RELATIVE PERCENT (BEAKER) (test 11 % srgm=798) MONOCYTES RELATIVE PERCENT (BEAKER) (test 15 % qfkm=144) EOSINOPHILS RELATIVE PERCENT (BEAKER) (test 4 % uqen=879) BASOPHILS RELATIVE PERCENT (BEAKER) (test 1 % vwxa=655) NEUTROPHILS ABSOLUTE COUNT (BEAKER) (test 2.82 K/ L 1.56-6.13 wcrz=834) LYMPHOCYTES ABSOLUTE COUNT (BEAKER) (test 0.43 K/ L 1.18-3.74 wzkd=850) MONOCYTES ABSOLUTE COUNT (BEAKER) (test 0.60 K/ L 0.24-0.36 cphn=482) EOSINOPHILS ABSOLUTE COUNT (BEAKER) (test 0.17 K/ L 0.04-0.36 rnch=492) BASOPHILS ABSOLUTE COUNT (BEAKER) (test 0.03 K/ L 0.01-0.08 wwxw=109) IMMATURE GRANULOCYTES-RELATIVE PERCENT (BEAKER) 1 % 0-1 (test qbyf=7431) POCT-GLUCOSE [id number] 00:49:00 Test Item Value Reference Range Comments POC-GLUCOSE METER (BEAKER) 95 mg/dL 70-110 TESTED AT [facility] [address] [facility] (test bciz=4148) [facility] [address] [id number] 21:49:00 Test Item Value Reference Range Comments POTASSIUM (BEAKER) (test 3.9 meq/L 3.5-5.1 Specimen moderately hemolyzed bmha=842) SODIUM, RANDOM [id number] 19:06:00 Test Item Value Reference Range Comments SODIUM URINE (BEAKER) (test zpzl=589) < meq/L Reference Range: No NormalsCREATININE, RANDOM [id number] 19:02:00 Test Item Value Reference Range Comments CREATININE URINE (BEAKER) (test tarb=752) 160.3 mg/dL Reference Range: No NormalsPROTEIN, RANDOM [id number] 19:02:00 Test Item Value Reference Range Comments PROTEIN, URINE (BEAKER) (test xpqz=0298) 19 mg/dL 0-14 SCREEN, [id number] 18:47:00 Test Item Value Reference Range Comments TEST URINE (BEAKER) (test txms=728) Negative POCT-GLUCOSE [id number] 18:08:00 Test Item Value Reference Range Comments POC-GLUCOSE METER (BEAKER) 183 mg/dL 70-110 TESTED AT [address] (test xyhe=9158) [facility] [address] [id number] 13:33:00 Test Item Value Reference Range Comments POTASSIUM (BEAKER) (test jhda=097) 3.2 meq/L 3.5-5.1 CBC (HEMOGRAM ONLY)2018-02-10 13:20:00 Test Item Value Reference Range Comments WHITE BLOOD CELL COUNT 4.6 K/ L 3.5-10.5 (BEAKER) (test hrmg=655) RED BLOOD CELL COUNT (BEAKER) 2.47 M/ L 3.93-5.22 (test qxhx=549) HEMOGLOBIN (BEAKER) (test 7.6 GM/DL 11.2-15.7 gygm=446) HEMATOCRIT (BEAKER) (test 23.0 % 34.1-44.9 iboi=821) MEAN CORPUSCULAR VOLUME 93.1 fL 79.4-94.8 Discordant from previous (BEAKER) (test yukt=258) results. Clinical correlation suggested. MEAN CORPUSCULAR HEMOGLOBIN 30.8 pg 25.6-32.2 (BEAKER) (test teym=817) MEAN CORPUSCULAR HEMOGLOBIN 33.0 GM/DL 32.2-35.5 CONC (BEAKER) (test naof=079) RED CELL DISTRIBUTION WIDTH 20.5 % 11.7-14.4 (BEAKER) (test ltna=518) PLATELET COUNT (BEAKER) (test 111 K/CU MM 150-450 okln=506) MEAN PLATELET VOLUME (BEAKER) 11.2 fL 9.4-12.3 (test hurs=119) NUCLEATED RED BLOOD CELLS 0 /100 WBC 0-0 (BEAKER) (test kydk=174) POCT-GLUCOSE [id number] 11:51:00 Test Item Value Reference Range Comments POC-GLUCOSE METER (BEAKER) 123 mg/dL 70-110 TESTED AT [address] (test gqtk=5721) [facility] [address] POCT-GLUCOSE [id number] 06:46:00 Test Item Value Reference Range Comments POC-GLUCOSE METER (BEAKER) 237 mg/dL 70-110 TESTED AT [facility] [address] (test uvjq=0882) [facility] [address] CBC (HEMOGRAM ONLY)2018-02-10 06:44:00 Test Item Value Reference Range Comments WHITE BLOOD CELL COUNT (BEAKER) (test mqvg=510) 2.8 K/ L 3.5-10.5 RED BLOOD CELL COUNT (BEAKER) (test lcfq=851) 2.34 M/ L 3.93-5.22 HEMOGLOBIN (BEAKER) (test bytj=952) 7.2 GM/DL 11.2-15.7 HEMATOCRIT (BEAKER) (test eizw=355) 22.8 % 34.1-44.9 MEAN CORPUSCULAR VOLUME (BEAKER) (test tylc=791) 97.4 fL 79.4-94.8 MEAN CORPUSCULAR HEMOGLOBIN (BEAKER) (test 30.8 pg 25.6-32.2 jabb=688) MEAN CORPUSCULAR HEMOGLOBIN CONC (BEAKER) (test 31.6 GM/DL 32.2-35.5 hsll=476) RED CELL DISTRIBUTION WIDTH (BEAKER) (test 20.3 % 11.7-14.4 sbtx=175) PLATELET COUNT (BEAKER) (test eind=964) 102 K/CU MM 150-450 MEAN PLATELET VOLUME (BEAKER) (test zgjf=640) 11.3 fL 9.4-12.3 NUCLEATED RED BLOOD CELLS (BEAKER) (test 0 /100 WBC 0-0 yaqp=026) RAPID DRUG SCREEN, [id number] 06:12:00 Test Item Value Reference Range Comments BARBITURATE URINE (BEAKER) (test kzec=513) Negative Negative BENZODIAZEPINE SCREEN URINE (BEAKER) (test Negative Negative edhe=068) COCAINE (METAB.) SCREEN (BEAKER) (test wmsr=0342) Negative Negative METHADONE SCREEN (BEAKER) (test vngj=8114) Negative Negative OPIATE SCREEN URINE (BEAKER) (test vxfr=814) Negative Negative CANNABINOID SCREEN URINE (BEAKER) (test twoi=002) Negative Negative AMPH/METHAMPH SCREEN (BEAKER) (test tuxb=6181) Negative Negative PHENCYCLIDINE SCREEN URINE (BEAKER) (test afvp=164) Negative Negative OXYCODONE SCREEN URINE (BEAKER) (test nwtp=5188) Negative Negative DRUG CUTOFF CONC.Cocaine 300 ng/mL Cannabinoid 50 ng/mL Benzodiazepine 200 ng/mLBarbiturate 200 ng/ mLPhencyclidine 25 ng/mLOpiate 300 ng/mLMethadone 300 ng/mLAmphetamine/ 1000 ng/mL MethamphetamineOxycodone 300 ng/mLThis assay provides an unconfirmed qualitative test result for the clinical management of patients in emergency situations. Chain of custody not maintained. Some oszi-ldt-cdrqozb medications, as well as adulterants, may cause inaccurate results. Clinical correlation should be applied. A more comprehensive drug screen or confirmation of a detected drug may be performed upon request.URINALYSIS W/ REFLEX URINE [id number] 04:33:00 Test Item Value Reference Range Comments COLOR (BEAKER) (test ycfa=798) Yellow CLARITY (BEAKER) (test tndy=507) Hazy SPECIFIC GRAVITY UA (BEAKER) (test yapn=352) 1.013 1.001-1.035 PH UA (BEAKER) (test ijca=560) 6.0 5.0-8.0 PROTEIN UA (BEAKER) (test oser=836) 10 mg/dL Negative GLUCOSE UA (BEAKER) (test mbnf=347) Negative Negative KETONES UA (BEAKER) (test hzao=700) Trace Negative BILIRUBIN UA (BEAKER) (test tque=438) Negative Negative BLOOD UA (BEAKER) (test npiz=277) Negative Negative NITRITE UA (BEAKER) (test vymq=632) Negative Negative LEUKOCYTE ESTERASE UA (BEAKER) (test qwrk=653) Negative Negative UROBILINOGEN UA (BEAKER) (test whwj=385) 0.2 mg/dL 0.2-1.0 RBC UA (BEAKER) (test wqkc=824) < /HPF WBC UA (BEAKER) (test jgxk=506) 2 /HPF BACTERIA (BEAKER) (test vvfi=766) Rare MUCUS (BEAKER) (test amlt=6548) Rare SQUAMOUS EPITHELIAL (BEAKER) (test nxzw=487) 8 /HPF HYALINE CASTS (BEAKER) (test kpin=635) 70 /LPF AMORPHOUS CRYSTALS (BEAKER) (test zxrc=0348) Rare SOURCE(BEAKER) (test ibzw=6162) BASIC METABOLIC [id number] 02:35:00 Test Item Value Reference Range Comments SODIUM (BEAKER) (test 137 meq/L 136-145 muqb=505) POTASSIUM (BEAKER) (test 2.9 meq/L 3.5-5.1 pwcs=200) CHLORIDE (BEAKER) (test 109 meq/L 98-107 cvjo=893) CO2 (BEAKER) (test 14 meq/L 22-29 jwjv=402) BLOOD UREA NITROGEN 31 mg/dL 7-21 (BEAKER) (test awww=606) CREATININE (BEAKER) (test 1.98 mg/dL 0.57-1.25 ptgg=411) GLUCOSE RANDOM (BEAKER) 146 mg/dL 70-105 (test cjwr=097) CALCIUM (BEAKER) (test 8.9 mg/dL 8.4-10.2 fktu=584) EGFR (BEAKER) (test 27 mL/min/1.73 sq m ESTIMATED GFR IS NOT kset=1024) ACCURATE CREATININE CLEARANCE IN PREDICTING GLOMERULAR FILTRATION RATE. ESTIMATED GFR IS NOT APPLICABLE FOR DIALYSIS PATIENTS. [id number] 02:35:00 Test Item Value Reference Range Comments MAGNESIUM (BEAKER) (test akti=398) 2.0 mg/dL 1.6-2.6 HEPATIC FUNCTION [id number] 02:35:00 Test Item Value Reference Range Comments TOTAL PROTEIN (BEAKER) (test swip=667) 7.4 gm/dL 6.0-8.3 ALBUMIN (BEAKER) (test cqym=5256) 3.8 g/dL 3.5-5.0 BILIRUBIN TOTAL (BEAKER) (test tmyz=693) 1.8 mg/dL 0.2-1.2 BILIRUBIN DIRECT (BEAKER) (test bfck=831) 0.9 mg/dL 0.1-0.5 ALKALINE PHOSPHATASE (BEAKER) (test nuit=422) 73 U/L 40-150 AST (SGOT) (BEAKER) (test eusj=970) 38 U/L 5-34 ALT (SGPT) (BEAKER) (test bvjm=908) 14 U/L 6-55 BLOOD GAS, [id number] 02:34:00 Test Item Value Reference Range Comments PH VENOUS (BEAKER) (test evyy=771) 7.42 7.32-7.42 PCO2 VENOUS (BEAKER) (test imdj=326) 28 mmHg 41-51 PO2 VENOUS (BEAKER) (test lmxo=448) 34 mmHg 25-40 O2 SATURATION VENOUS (BEAKER) (test xmxq=369) 67.6 % 40.0-70.0 HCO3 VENOUS (BEAKER) (test mcrr=901) 17 mmol/L 21-29 BASE EXCESS VENOUS (BEAKER) (test xrjq=717) -6.2 mmol/L -2.0-3.0 PATIENT TEMPERATURE (BEAKER) (test idqt=7849) 37.0 C [id number] 02:33:00 Test Item Value Reference Range Comments PHOSPHORUS (BEAKER) (test gwse=710) 3.7 mg/dL 2.3-4.7 [id number] 02:33:00 Test Item Value Reference Range Comments LIPASE (BEAKER) (test krno=713) 40 U/L 8-78 CREATINE KINASE (CK), TOTAL AND [id number] 02:30:00 Test Item Value Reference Range Comments CREATINE KINASE TOTAL (BEAKER) (test nclc=884) 30 U/L 29-200 CREATINE KINASE-MB (BEAKER) (test wunu=922) 0.4 ng/mL 0.0-6.6 CREATINE KINASE-MB INDEX (BEAKER) (test jhso=150) 1.3 % CK-MB Reference Range:<6.7 Normal6.7-10.0 Borderline>10.0 AbnormalTROPONIN [id number] 02:30:00 Test Item Value Reference Range Comments TROPONIN I (BEAKER) (test wetv=920) < ng/mL 0.00-0.03 Troponin I (TnI) levels [...] failure, acidosis, acute neurological disease, and persistent tachyarrhythmia.[id number] 02:19:00 Test Item Value Reference Range Comments ETHANOL (BEAKER) (test grdg=814) < mg/dL <=10 [id number] 02:17:00 Test Item Value Reference Range Comments PARTIAL THROMBOPLASTIN TIME (BEAKER) (test 32.8 seconds 22.5-36.0 cajn=115) LACTIC ACID, VENOUS, WHOLE [id number] 02:17:00 Test Item Value Reference Range Comments LACTATE BLOOD VENOUS (2) (BEAKER) (test 1.2 mmol/L 0.5-2.2 jext=6090) Effective 12/07/2015: Units/Reference Range ChangeNew: 0.5-2.2 mmol/L Previous: 5 -20 mg/dLPROTHROMBIN [id number] 02:16:00 Test Item Value Reference Range Comments PROTIME (BEAKER) (test gtbu=257) 17.0 seconds 11.7-14.7 INR (BEAKER) (test qeai=573) 1.4 <=5.9 RECOMMENDED COUMADIN/WARFARIN INR THERAPY RANGESSTANDARD DOSE: 2.0 - 3.0 Includes: PROPHYLAXIS forvenous thrombosis, systemic embolization; TREATMENT for venous thrombosis and/or pulmonary embolus.HIGH RISK: Target INR is 2.5-3.5 for patients with mechanical heart valves.[id number] 02:16:00 Test Item Value Reference Range Comments AMMONIA (BEAKER) (test nzon=704) 75 mol/L 18-72 [id number] 02:16:00 Test Item Value Reference Range Comments FIBRINOGEN LEVEL (BEAKER) (test rtfs=288) 372 mg/dl 225-434 CBC W/PLT COUNT & AUTO [id number] 02:10:00 Test Item Value Reference Range Comments WHITE BLOOD CELL COUNT (BEAKER) (test yzum=722) 4.0 K/ L 3.5-10.5 RED BLOOD CELL COUNT (BEAKER) (test nrkf=482) 2.78 M/ L 3.93-5.22 HEMOGLOBIN (BEAKER) (test tlax=012) 8.5 GM/DL 11.2-15.7 HEMATOCRIT (BEAKER) (test jbgf=406) 25.8 % 34.1-44.9 MEAN CORPUSCULAR VOLUME (BEAKER) (test owxa=462) 92.8 fL 79.4-94.8 MEAN CORPUSCULAR HEMOGLOBIN (BEAKER) (test 30.6 pg 25.6-32.2 mkyt=556) MEAN CORPUSCULAR HEMOGLOBIN CONC (BEAKER) (test 32.9 GM/DL 32.2-35.5 nggo=307) RED CELL DISTRIBUTION WIDTH (BEAKER) (test 18.7 % 11.7-14.4 ilzh=896) PLATELET COUNT (BEAKER) (test vgzz=785) 110 K/CU MM 150-450 MEAN PLATELET VOLUME (BEAKER) (test gskt=205) 11.2 fL 9.4-12.3 NUCLEATED RED BLOOD CELLS (BEAKER) (test 0 /100 WBC 0-0 wrwf=559) NEUTROPHILS RELATIVE PERCENT (BEAKER) (test 92 % mmpo=842) LYMPHOCYTES RELATIVE PERCENT (BEAKER) (test 4 % cffz=072) MONOCYTES RELATIVE PERCENT (BEAKER) (test 3 % yyqk=093) EOSINOPHILS RELATIVE PERCENT (BEAKER) (test 1 % mhqx=234) BASOPHILS RELATIVE PERCENT (BEAKER) (test 0 % iihl=233) NEUTROPHILS ABSOLUTE COUNT (BEAKER) (test 3.69 K/ L 1.56-6.13 iewb=034) LYMPHOCYTES ABSOLUTE COUNT (BEAKER) (test 0.14 K/ L 1.18-3.74 wosa=127) MONOCYTES ABSOLUTE COUNT (BEAKER) (test 0.11 K/ L 0.24-0.36 hdve=170) EOSINOPHILS ABSOLUTE COUNT (BEAKER) (test 0.03 K/ L 0.04-0.36 hkei=135) BASOPHILS ABSOLUTE COUNT (BEAKER) (test 0.01 K/ L 0.01-0.08 kxsj=886) IMMATURE GRANULOCYTES-RELATIVE PERCENT (BEAKER) 1 % 0-1 (test xfua=5681) ANTI-NUCLEAR ANTIBODY (LÓPEZ)2017-11-29 09:50:00 Test Item Value Reference Range Comments ANTI-NUCLEAR ANTIBODY (LÓPEZ) (BEAKER) (test Positive Negative vvvj=045) LÓPEZ TITER AND [id number] 09:50:00 Test Item Value Reference Range Comments LÓPEZ TITER (BEAKER) (test oygm=9207) :40 LÓPEZ PATTERN (BEAKER) (test rwda=6545) Speckled [id number] 15:34:00 Test Item Value Reference Range Comments FERRITIN (BEAKER) (test jmxt=463) 237 ng/mL 5-275 HEPATITIS B SURFACE [id number] 14:54:00 Test Item Value Reference Range Comments HEPATITIS B SURFACE ANTIBODY (BEAKER) (test < mIU/mL <8.0 qdri=960) HEPATITIS B SURFACE [id number] 14:49:00 Test Item Value Reference Range Comments HEPATITIS B SURFACE ANTIGEN (2) (BEAKER) (test Nonreactive Nonreactive rnmq=2012) HEPATITIS C [id number] 14:49:00 Test Item Value Reference Range Comments HEPATITIS C ANTIBODY (BEAKER) (test jqbu=704) Nonreactive Nonreactive ALPHA FETOPROTEIN (AFP), TUMOR [id number] 14:48:00 Test Item Value Reference Range Comments ALPHA-FETOPROTEIN (BEAKER) (test dnoh=4941) 4.9 ng/mL <10.0 HEPATITIS B CORE ANTIBODY, [id number] 14:48:00 Test Item Value Reference Range Comments HEPATITIS B CORE TOTAL ANTIBODY (BEAKER) (test Nonreactive Nonreactive hslr=781) HEPATITIS A ANTIBODY, [id number] 14:48:00 Test Item Value Reference Range Comments HEPATITIS A IGG ANTIBODY (BEAKER) (test Nonreactive Nonreactive bmky=5459) CBC W/PLT COUNT & AUTO [id number] 14:30:00 Test Item Value Reference Range Comments WHITE BLOOD CELL COUNT (BEAKER) (test cgdw=073) 5.2 K/ L 3.5-10.5 RED BLOOD CELL COUNT (BEAKER) (test gzuc=057) 2.96 M/ L 3.93-5.22 HEMOGLOBIN (BEAKER) (test cobm=963) 9.7 GM/DL 11.2-15.7 HEMATOCRIT (BEAKER) (test ksuj=159) 31.0 % 34.1-44.9 MEAN CORPUSCULAR VOLUME (BEAKER) (test yhmk=906) 104.7 fL 79.4-94.8 MEAN CORPUSCULAR HEMOGLOBIN (BEAKER) (test 32.8 pg 25.6-32.2 jieg=646) MEAN CORPUSCULAR HEMOGLOBIN CONC (BEAKER) (test 31.3 GM/DL 32.2-35.5 bacf=724) RED CELL DISTRIBUTION WIDTH (BEAKER) (test 17.8 % 11.7-14.4 dqtp=974) PLATELET COUNT (BEAKER) (test ivem=423) 92 K/CU MM 150-450 MEAN PLATELET VOLUME (BEAKER) (test oipx=609) 10.3 fL 9.4-12.3 NUCLEATED RED BLOOD CELLS (BEAKER) (test 0 /100 WBC 0-0 kiol=470) NEUTROPHILS RELATIVE PERCENT (BEAKER) (test 81 % qcbd=296) LYMPHOCYTES RELATIVE PERCENT (BEAKER) (test 6 % ushf=524) MONOCYTES RELATIVE PERCENT (BEAKER) (test 9 % jxks=193) EOSINOPHILS RELATIVE PERCENT (BEAKER) (test 3 % pabn=540) BASOPHILS RELATIVE PERCENT (BEAKER) (test 1 % qcuy=253) NEUTROPHILS ABSOLUTE COUNT (BEAKER) (test 4.23 K/ L 1.56-6.13 sgmn=579) LYMPHOCYTES ABSOLUTE COUNT (BEAKER) (test 0.29 K/ L 1.18-3.74 fpch=831) MONOCYTES ABSOLUTE COUNT (BEAKER) (test vswu=945) 0.49 K/ L 0.24-0.36 EOSINOPHILS ABSOLUTE COUNT (BEAKER) (test 0.14 K/ L 0.04-0.36 rlbn=196) BASOPHILS ABSOLUTE COUNT (BEAKER) (test rkgg=026) 0.06 K/ L 0.01-0.08 IMMATURE GRANULOCYTES-RELATIVE PERCENT (BEAKER) 0 % 0-1 (test gcma=5047) COMPREHENSIVE METABOLIC [id number] 14:28:00 Test Item Value Reference Range Comments TOTAL PROTEIN (BEAKER) 7.6 gm/dL 6.0-8.3 (test xnkd=890) ALBUMIN (BEAKER) (test 3.6 g/dL 3.5-5.0 iztv=1357) ALKALINE PHOSPHATASE 144 U/L 40-150 (BEAKER) (test xvrv=904) BILIRUBIN TOTAL (BEAKER) 1.1 mg/dL 0.2-1.2 (test tjfo=271) SODIUM (BEAKER) (test 135 meq/L 136-145 ngll=767) POTASSIUM (BEAKER) (test 3.6 meq/L 3.5-5.1 fttb=496) CHLORIDE (BEAKER) (test 103 meq/L 98-107 wdmy=070) CO2 (BEAKER) (test 22 meq/L 22-29 qsci=919) BLOOD UREA NITROGEN 16 mg/dL 7-21 (BEAKER) (test qbgr=231) CREATININE (BEAKER) (test 1.82 mg/dL 0.57-1.25 uqsk=266) GLUCOSE RANDOM (BEAKER) 102 mg/dL 70-105 (test efhy=248) CALCIUM (BEAKER) (test 9.1 mg/dL 8.4-10.2 ypnn=789) AST (SGOT) (BEAKER) (test 39 U/L 5-34 lgbb=953) ALT (SGPT) (BEAKER) (test 14 U/L 6-55 hmkf=412) EGFR (BEAKER) (test 30 mL/min/1.73 sq m ESTIMATED GFR IS NOT ybih=2782) ACCURATE CREATININE CLEARANCE IN PREDICTING GLOMERULAR FILTRATION RATE. ESTIMATED GFR IS NOT APPLICABLE FOR DIALYSIS PATIENTS. BILIRUBIN, [id number] 14:28:00 Test Item Value Reference Range Comments BILIRUBIN DIRECT (BEAKER) (test bsbx=991) 0.6 mg/dL 0.1-0.5 IRON, TIBC, % SAT. (WITHOUT FERRITIN)[id number] 14:26:00 Test Item Value Reference Range Comments IRON (BEAKER) (test acfk=983) 37 ug/dL 40-160 TOTAL IRON BINDING CAPACITY (BEAKER) (test 219 ug/dL 250-450 rmsi=420) IRON % SATURATION (2) (BEAKER) (test srzc=6119) 17 % 20-55 [id number] 14:25:00 Test Item Value Reference Range Comments ALPHA-1 ANTITRYPSIN (BEAKER) (test vcil=045) 151.80 mg/dL 90.00-200.00 PROTHROMBIN [id number] 14:03:00 Test Item Value Reference Range Comments PROTIME (BEAKER) (test ezxl=372) 17.2 seconds 11.7-14.7 INR (BEAKER) (test pwst=313) 1.4 <=5.9 RECOMMENDED COUMADIN/WARFARIN INR THERAPY RANGESSTANDARD DOSE: 2.0 - 3.0 Includes: PROPHYLAXIS forvenous thrombosis, systemic embolization; TREATMENT for venous thrombosis and/or pulmonary embolus.HIGH RISK: Target INR is 2.5-3.5 for patients with mechanical heart valves.
[2018-10-01 10:00] VITALS: O2SAT 100
--- NOTE | 2018-10-01 10:53 | RAD REPORT ---
EXAM DESCRIPTION: US - Paracentesis Proc Guidance - 10/01/2018 10:47 am CLINICAL HISTORY: ASCITES Ascites COMPARISON: Paracentesis Proc Guidance dated 09/24/2018 FINDINGS: Informed consent was obtained and time-out was performed. Patient's abdomen was prepped and draped in the usual sterile fashion. 1% lidocaine was used for loca l anesthetic purposes. A small skin incision was made along the right lower quadrant. A paracentesis catheter was guided int o the peroneal cavity under sonographic guidance. A small amount of fluid was sent for requested lab studies. A large volume paracentesis was performed . The patient tolerated the procedure well. Patient was administered IV albumin per protocol following the procedure. IMPRESSION: Successful ultrasound-guided paracentesis.
[2018-10-01 14:05] LABS: Appearance CLEAR (CLEAR); Body Fluid Source PLEURAL; Color of fluid Yellow (COLORLESS)
[2018-10-01 14:06] LABS: Body Fluid WBC 21 /mm^3
[2018-10-01 15:05] VITALS: BMI 22.6
[2018-10-01 15:13] VITALS: TEMP 98.2
[2018-10-01 15:15] VITALS: BP 105/62
== END ==
LOC: DS 09:17
PROVIDERS: ATTEND Internal Medicine Gastroenterology
PROC: 0W9G3ZX Drainage of Peritoneal Cavity, Percutaneous Approach, Diagnostic (ICD-10-PCS; principal; 2018-10-01)
PROC: BW40ZZZ Ultrasonography of Abdomen (ICD-10-PCS; 2018-10-01)
DX: R18.8 Other ascites (principal)
CPT/HCPCS: 36415; 49083; 87070; 89050; 96365; P9047

== ENCOUNTER 2018-10-06 23:13 | Inpatient (IN) | payer MEDICAID ==
--- OUTSIDE RECORDS SUMMARY | 2018-10-06 23:15 | XMS REPORT | Clinical Summary ---
:1970 Author Organization [facility] Address [address] [place] [address] Care Team Providers Name Role Phone Alison [...] Sr., MD Sanders, Sunny Buchanan MD after 10/05/2017 Social History Tobacco Use Types Packs/Day Years [...] Taken Blood Pressure 109/68 08/08/2018 4:30 PM VEGETABLE PREPARER Pulse 105 08/08/2018 4:30 PM VEGETABLE PREPARER Temperature 36.6 C (97.9 F) 08/08/2018 3:40 PM VEGETABLE PREPARER Respiratory Rate 18 08/08/2018 4:30 PM VEGETABLE PREPARER Oxygen Saturation 100% 08/08/2018 3:40 PM VEGETABLE PREPARER Inhaled Oxygen Concentration - - Weight 59 kg (130 lb) 08/04/2018 4:30 AM VEGETABLE PREPARER Height 167.6 cm (5' 6") 08/04/2018 4:30 AM VEGETABLE PREPARER Body Mass Index 20.98 08/04/2018 4:30 AM VEGETABLE PREPARER Plan of Treatment Health Maintenance Due Date Last Done Comments CERVICAL CANCER SCREENING 1990 INFLUENZA VACCINE 03/05/2018 Procedures Procedure Name Priority Date/Time Associated Comments Diagnosis ESTIMATED GFR Routine 08/08/2018 2:25 Results for this PM VEGETABLE PREPARER procedure are in the results section. BASIC METABOLIC PANEL Routine 08/08/2018 2:25 Results for this PM VEGETABLE PREPARER procedure are in the results section. US ABDOMINAL Routine 08/08/2018 9:50 Results for this PARACENTESIS IMAGING AM VEGETABLE PREPARER procedure are in the results section. ESTIMATED GFR Routine 08/07/2018 4:40 Results for this AM VEGETABLE PREPARER procedure are in the results section. BASIC METABOLIC PANEL Routine 08/07/2018 4:40 Results for this AM VEGETABLE PREPARER procedure are in the results section. VENOUS BLOOD GAS Routine 08/06/2018 6:42 Results for this PM VEGETABLE PREPARER procedure are in the results section. US ABDOMINAL Routine 08/06/2018 2:30 Results for this PARACENTESIS IMAGING PM VEGETABLE PREPARER procedure are in the results section. SMEAR REVIEW Routine 08/06/2018 6:45 Results for this AM VEGETABLE PREPARER procedure are in the results section. ESTIMATED GFR Routine 08/06/2018 6:45 Results for this AM VEGETABLE PREPARER procedure are in the results section. LACTIC ACID LEVEL Routine 08/06/2018 6:45 Results for this AM VEGETABLE PREPARER procedure are in the results section. HC COMPLETE BLD COUNT Routine 08/06/2018 6:45 Results for this W/AUTO DIFF AM VEGETABLE PREPARER procedure are in the results section. PROTHROMBIN TIME WITH Routine 08/06/2018 6:45 Results for this INR AM VEGETABLE PREPARER procedure are in the results section. BASIC METABOLIC PANEL Routine 08/06/2018 6:45 Results for this AM VEGETABLE PREPARER procedure are in the results section. PARTIAL THROMBOPLASTIN Routine 08/06/2018 6:45 Results for this TIME (PTT) AM VEGETABLE PREPARER procedure are in the results section. LACTIC ACID LEVEL, Timed 08/05/2018 6:00 Results for this SEPSIS - NOW AND REPEAT PM VEGETABLE PREPARER procedure are in 2X EVERY 3 HOURS the results section. LACTIC ACID LEVEL, Timed 08/05/2018 3:25 Results for this SEPSIS - NOW AND REPEAT PM VEGETABLE PREPARER procedure are in 2X EVERY 3 HOURS the results section. SMEAR REVIEW Routine 08/05/2018 4:35 Results for this AM VEGETABLE PREPARER procedure are in the results section. ESTIMATED GFR Routine 08/05/2018 4:35 Results for this AM VEGETABLE PREPARER procedure are in the results section. AMMONIA LEVEL Routine 08/05/2018 4:35 Results for this AM VEGETABLE PREPARER procedure are in the results section. BASIC METABOLIC PANEL Routine 08/05/2018 4:35 Results for this AM VEGETABLE PREPARER procedure are in the results section. HC COMPLETE BLD COUNT Routine 08/05/2018 4:35 Results for this W/AUTO DIFF AM VEGETABLE PREPARER procedure are in the results section. US ABDOMINAL STAT 08/04/2018 1:35 Results for this PARACENTESIS IMAGING PM VEGETABLE PREPARER procedure are in the results section. XR CHEST 1 VW PORTABLE STAT 08/04/2018 5:19 Results for this AM VEGETABLE PREPARER procedure are in the results section. SMEAR REVIEW STAT 08/04/2018 5:00 Results for this AM VEGETABLE PREPARER procedure are in the results section. AMMONIA LEVEL STAT 08/04/2018 5:00 Results for this AM VEGETABLE PREPARER procedure are in the results section. ESTIMATED GFR STAT 08/04/2018 5:00 Results for this AM VEGETABLE PREPARER procedure are in the results section. MAGNESIUM LEVEL STAT 08/04/2018 5:00 Results for this AM VEGETABLE PREPARER procedure are in the results section. PARTIAL THROMBOPLASTIN STAT 08/04/2018 5:00 Results for this TIME (PTT) AM VEGETABLE PREPARER procedure are in the results section. PROTHROMBIN TIME WITH STAT 08/04/2018 5:00 Results for this INR AM VEGETABLE PREPARER procedure are in the results section. HC COMPLETE BLD COUNT STAT 08/04/2018 5:00 Results for this W/AUTO DIFF AM VEGETABLE PREPARER procedure are in the results section. COMPREHENSIVE METABOLIC STAT 08/04/2018 5:00 Results for this PANEL AM VEGETABLE PREPARER procedure are in the results section. after 10/05/2017 Results Estimated GFR (08/08/2018 2:25 PM VEGETABLE PREPARER)Only the most recent of5 resultswithin the time period is included. Estimated GFR 59 (A) mL/min/1.73 m2 [facility] Comment: [facility] CatergoryUnitsInterpretation G1 >=90 Normal or high G2 60-89Mildly decreased [id number] to moderately decreased [id number] to severely decreased G4 15-29Severely decreased G5 <15Kidney failure The eGFR was calculated using the Chronic Kidney Disease Epidemiology Collaboration (CKD-EPI) equation. Interpretation is based on recommendations of the National Kidney Foundation-Kidney Disease Outcomes Quality Initiative (NKF-KDOQI) published in 2014. Specimen Plasma specimen Performing Organization Address City/State/Zipcode [place] [id number], [address] [place] [address] PATHOLOGY AND GENOMIC S MEDICINE [facility] [address] [place] [address] [facility] Basic metabolic panel (08/08/2018 2:25 PM VEGETABLE PREPARER)Only the most recent of4 resultswithin the time period is included. Sodium 139 135 - 148 mEq/L [facility] Potassium 3.7 3.5 - 5.0 mEq/L [facility] Chloride 107 98 - 112 mEq/L [facility] CO2 17 (L) 24 - 31 mEq/L [facility] Anion gap 15 7 - 15 mEq/L [facility] BUN 20 6 - 20 mg/dL [facility] Creatinine 1.10 (H) 0.50 - 0.90 mg/dL [facility] Glucose 105 (H) 65 - 99 mg/dL [facility] Calcium 9.2 8.3 - 10.2 mg/dL [facility] Specimen Plasma specimen Performing Organization Address City/State/[place]code [place] [address], [address] [place] [address] PATHOLOGY AND GENOMIC S MEDICINE [facility] THE [address] [place] [address] [facility] US Abdominal Paracentesis Imaging (08/08/2018 9:50 AM VEGETABLE PREPARER)Only the most recent of3 resultswithin the time period is included. Narrative Performed At [facility] Ultrasound-guided paracentesis. Clinical Indication [...] anesthetic. Using real-time ultrasound guidance, a 5 Iraqi Yueh catheter was advanced successfully into the peritoneal cavity with return of cloudy yellow ascites. A total of 5000 mL of fluid was removed. The Yueh catheter was removed and hemostasis was achieved with manual compression. The patient tolerated the procedure well. Complications None. Impression: Successful ultrasound-guided paracentesis with removal of 5000 ml of cloudy yellow ascites. [id number] Procedure Note Hm Interface, Radiology Results Incoming - 08/08/2018 12:03 PM VEGETABLE PREPARER Procedure Ultrasound-guided paracentesis. Clinical Indication Ascites. Anesthesia [...] anesthetic. Using real-time ultrasound guidance, a 5 Iraqi Yueh catheter was advanced successfully into the peritoneal cavity with return of cloudy yellow ascites. A total of 5000 mL of fluid was removed. The Yueh catheter was removed and hemostasis was achieved with manual compression. The patient tolerated the procedure well. Complications None. Impression: Successful ultrasound-guided paracentesis with removal of 5000 ml of cloudy yellow ascites. [facility]-[id number] Performing Organization Address City/[facility] Phone Number [facility] [address] [place] [address] Venous blood gas (08/06/2018 6:42 PM VEGETABLE PREPARER) pH, venous 7.41 7.32 - 7.42 [facility] pCO2, venous 24 (L) 45 - 51 mmHg [facility] pO2, venous 75 (H) 25 - 40 mmHg [facility] Base excess, venous -9 (L) -2 - 2 meq/L [facility] O2 saturation, venous 95 (H) 40 - 70 % [facility] Bicarbonate, venous 14.5 (L) 21.0 - 28.0 mmol/L [facility] Specimen Blood Performing Organization Address City/[facility] [place] Number [place] [address], [address] [place] [address] PATHOLOGY AND GENOMIC S MEDICINE [facility] THE [address] [place] [address] [facility] Smear review (08/06/2018 6:45 AM VEGETABLE PREPARER)Only the most recent of3 resultswithin the time period is included. Platelet slide review Decreased (A) [facility] Anisocytosis Moderate [facility] Tear drop cells Occasional [facility] Schistocytes Occasional [facility] Spherocytes Occasional [facility] Performing Organization Address City/[facility] Phone Number [facility] DEPARTMENT OF [facility] [place] [address] PATHOLOGY [facility] THE [address] Partial thromboplastin time, activated (08/06/2018 6:45 AM VEGETABLE PREPARER)Only the most recent of2 resultswithin the time period is included. PTT 42.1 (H) 23.0 - 36.0 sec [facility] Comment: [facility] PTT therapeutic range for unfractionated heparin is 61.0-112.0 seconds which corresponds to Anti-Xa 0.3-0.7 U/ml. Specimen Blood Performing Organization Address [facility] Phone Number [facility] DEPARTMENT OF [facility] [address] Prothrombin time with INR (08/06/2018 6:45 AM VEGETABLE PREPARER)Only the most recent of2 resultswithin the time period is included. Prothrombin time 15.2 (H) 11.5 - 14.5 sec [facility] INR 1.2 [facility] Comment: [facility] The International Normalized Ratio (INR) is a therapeutic monitoring tool for patients who are stable on oral anticoagulant therapy. An INR of 2.0-3.0 is suggested for deep vein thrombosis/pulmonary embolism. Specimen Blood Performing Organization Address [facility] Phone Number [facility] DEPARTMENT OF [facility] [address] [address] [address] CBC with platelet and differential (08/06/2018 6:45 AM VEGETABLE PREPARER)Only the most recent of3 resultswithin the time period is included. WBC 3.27 (L) 4.50 - 11.00 k/uL [facility] RBC 2.52 (L) 4.20 - 5.50 m/uL [facility] HGB 7.7 (L) 12.0 - 16.0 g/dL [facility] HCT 24.6 (L) 37.0 - 47.0 % [facility] MCV 97.6 82.0 - 100.0 fL [facility] MCH 30.6 27.0 - 34.0 pg [facility] MCHC 31.3 31.0 - 37.0 g/dL [facility] RDW - SD 72.1 (H) 37.0 - 55.0 fL [facility] MPV 10.3 8.8 - 13.2 fL [facility] Platelet count 115 (L) 150 - 400 k/uL [facility] Nucleated RBC 0.00 /100 WBC [facility] Neutrophils 72.2 (H) 39.0 - 69.0 % [facility] Lymphocytes 6.7 (L) 25.0 - 45.0 % [facility] Monocytes 14.4 (H) 0.0 - 10.0 % [facility] Eosinophils 4.9 0.0 - 5.0 % [facility] Basophils 1.5 (H) 0.0 - 1.0 % [facility] Immature granulocytes 0.3Comment: "Immature 0.0 - 1.0 % [facility] granulocytes" [facility] (promyelocytes, myelocytes, metamyelocytes) Specimen Blood Performing Organization Address City/[facility] Phone Number [place] [id number], [address] [place] [address] PATHOLOGY AND WelVU S MEDICINE [facility] THE [address] Lactic acid level (08/06/2018 6:45 AM VEGETABLE PREPARER) Lactic acid 1.6 0.5 - 2.2 mmol/L [facility] Specimen Plasma specimen Performing Organization Address City/[facility] Phone Number [place] [phone], [address] [place] [address] PATHOLOGY AND GENOMIC S MEDICINE [facility] [address] [place] [id number] Lactic acid level, SEPSIS - Now and repeat 2x every 3 hours (08/05/2018 6:00 PM VEGETABLE PREPARER)Only the most recent of2 resultswithin the time period is included. Lactic acid 1.5 0.5 - 2.2 mmol/L [facility] Specimen Plasma specimen Performing Organization Address City/State/Zipcode Phone Number [facility] [place] [address], [address] [place] [address] PATHOLOGY AND GENOMIC S MEDICINE [facility] THE [address] [place] [address] [facility] Ammonia level (08/05/2018 4:35 AM VEGETABLE PREPARER)Only the most recent of2 resultswithin the time period is included. Ammonia 276 (H) 11 - 51 umol/L [facility] Specimen Blood Performing Organization Address [facility] Phone Number [facility] [place] [address], [address] [place] [address] PATHOLOGY AND GENOMIC S MEDICINE [facility] THE [address] [place] [address] [facility] XR Chest 1 Vw Portable (08/04/2018 5:19 AM VEGETABLE PREPARER) Narrative Performed At Examination:XR CHEST 1 VW PORTABLE [facility] Clinical History:sob Comparison: None. Technique: Single frontal view of the chest is obtained. Findings: Low lung volume with vascular crowding is noted. The heart size is normal. No pleural effusion is seen. Impression: Low lung volume but no acute infiltrate. [facility]-[id number] Procedure Note Hm Interface, Radiology Results Incoming - 08/04/2018 5:46 AM VEGETABLE PREPARER Examination: XR CHEST 1 VW PORTABLE Clinical History: sob Comparison: None. Technique: Single frontal view of the chest is obtained. Findings: Low lung volume with vascular crowding is noted. The heart size is normal. No pleural effusion is seen. Impression: Low lung volume but no acute infiltrate. [facility]-[id number] Performing Organization Address City/[facility]/Zipcode Phone Number [facility] [address] [place] [address] Magnesium level (08/04/2018 5:00 AM VEGETABLE PREPARER) Magnesium 1.9 1.6 - 2.6 mg/dL [facility] Specimen Plasma specimen Performing Organization Address City/[facility]/Zipcode Phone Number [facility] [place] [address], [address] [place] [address] PATHOLOGY AND GENOMIC S MEDICINE [facility] THE [address] [place] [address] [facility] Comprehensive metabolic panel (08/04/2018 5:00 AM VEGETABLE PREPARER) Sodium 137 135 - 148 mEq/L [facility] Potassium 3.8 3.5 - 5.0 mEq/L [facility] Chloride 109 98 - 112 mEq/L [facility] CO2 13 (LL) 24 - 31 mEq/L [facility] Comment: [facility] CO2 Results called to and read back by FISH VIEYRA RN/ED at [id number] by ROXANNA. Anion gap 15 7 - 15 mEq/L [facility] BUN 23 (H) 6 - 20 mg/dL [facility] Creatinine 1.65 (H) 0.50 - 0.90 mg/dL [facility] Glucose 94 65 - 99 mg/dL [facility] Calcium 8.6 8.3 - 10.2 mg/dL [facility] Protein 7.0 6.3 - 8.3 g/dL [facility] Comment: [facility] 4.6-7.0 g/dL 1 week 4.4-7.6 g/dL 7 months-1year5.1-7.3 g/dL 1-2 years5.6-7.5 g/dL >3 years6.0-8.0 g/dL 18-150 6.3-8.3 g/dL Albumin 3.1 (L) 3.5 - 5.0 g/dL [facility] A/G ratio 0.8 0.7 - 3.8 [facility] Alkaline phosphatase 147 (H) 35 - 104 U/L [facility] AST 66 (H) 10 - 35 U/L [facility] ALT 36 5 - 50 U/L [facility] Total bilirubin 1.0 0.0 - 1.2 mg/dL [facility] Specimen Plasma specimen Performing Organization Address City/State/[place]code [place] [address], [address] [place] [address] PATHOLOGY AND GENOMIC S MEDICINE [facility] [address] [place] [address] [facility] after 10/05/2017 Insurance Payer Benefit Plan / Group Subscriber ID Type Phone Address GARCIA GACRIA apprupt [employer] DOMENICA xxxxxxxxx HMO Advance Directives Patient has advance care planning documents on file. For more information, please contact:[facility] [place] [address]
--- OUTSIDE RECORDS SUMMARY | 2018-10-06 23:17 | XMS REPORT | Clinical Summary ---
:1970 Author Organization [facility] Address [address] [place] [address] Care Team Providers Name Role Phone Tray [...] test for immunity to both viruses - [facility]. Portal hypertension [...] Jefferson, Liver Cirrhosis Enriqueta D, (Social Work program support specialist / CM - Transition Care Team ) 06/02/2018 Telephone Case Management Jefferson, Liver Cirrhosis Enriqueta D, (Social Work program support specialist / CM - Transition Care Team ) 05/30/2018 Telephone Case Management Jefferson, Liver Cirrhosis Enriqueta D, (Social Work program support specialist / CM - Transition Care Team ) 05/30/2018 Telephone Case Management Jefferson, Liver Cirrhosis Enriqueta D, (Social Work adult protective caseworker/ CM - Transition Care Team ) 05/29/2018 [...] Immunity status testing; Portal hypertension (HCC) after 10/05/2017 Social History Tobacco Use Types [...] 05/23/2018 11:00 PM CDT Plan of Treatment Not on file Procedures Procedure Name Priority Date/Time Associated Comments [...] 434 ms QTC Calculation(Bazett) 554 ms P [place] 71 degrees R [place] 36 degrees T [place] 61 degrees Normal sinus rhythm Nonspecific ST [...] 436 ms QTC Calculation(Bazett) 515 ms P [place] 94 degrees R [place] 24 degrees T [place] 27 degrees Normal sinus rhythm Low voltage [...] 430 ms QTC Calculation(Bazett) 517 ms R [place] 30 degrees T [place] 20 degrees Accelerated Junctional rhythm Septal infarct [...] 0 ms QTC Calculation(Bazett) 0 ms R [place] 0 degrees T [place] 0 degrees No QRS complexes found, no [...] in with ascites (HCC) the results section. [id number]\\, Routine 11/27/2017 1:34 PM Alcoholic Results for [...] with ascites (HCC) the results section. after 10/05/2017 Results Basic Metabolic Panel (05/27/2018 2:39 AM CDT)Only the most recent of8 resultswithin the time period is included. Sodium 134 (L) 135 - 148 meq/L [facility] Potassium 3.5 3.5 - 5.5 meq/L [facility] Chloride 107 (H) 98 - 106 meq/L [facility] CO2 15 (L) 20 - 31 meq/L [facility] BUN 22 10 - 26 mg/dL [facility] Creatinine 1.51 (H) 0.50 - 1.20 mg/dL [facility] Glucose 105 70 - 110 mg/dL [facility] Calcium 9.7 8.5 - 10.5 mg/dL [facility] EGFR 37Comment: ESTIMATED GFR IS NOT mL/min/1.73 sq m [facility] ACCURATE CREATININE CLEARANCE IN PREDICTING GLOMERULAR FILTRATION RATE. ESTIMATED GFR IS NOT APPLICABLE FOR DIALYSIS PATIENTS. Specimen Blood - Arm, Right Narrative Performed At [facility] Specimen slightly icteric Performing Organization Address City/State/Zipcode Phone Number [facility] [address] [place], [place] [id number] TRANSFUSION SERVICE REPORT - SCAN (05/26/2018 6:12 PM CDT)Only the most recent of7 resultswithin the time period is included. Narrative Performed At US paracentesis (05/26/2018 3:49 PM CDT)Only the most recent of3 resultswithin the time period is included. Narrative Performed At FINAL REPORT [facility] Ultrasound guided paracentesis, 05/26/2018. Clinical History:Ascites. Sedation: None. Soda Jerker:Vishnu Biggs MD Fabricator Artificial Breast:None. Estimated Blood Loss: < 1 cc. Specimen: [...] MD Report Verified Date/Time:05/26/2018 16:05:11 Reading Location: [facility] Radiology Reading Room Procedure Note Interface, External Ris In - 05/27/2018 7:25 AM CDT FINAL REPORT Ultrasound guided paracentesis, 05/26/2018. Clinical History: Ascites. Sedation: None. Soda Jerker: Vishnu Biggs MD Fabricator Artificial Breast: None. Estimated Blood Loss: < 1 cc. [...] Report Verified Date/Time: 05/26/2018 16:05:11 Reading Location: [facility] Radiology Reading Room Performing Organization Address City/[facility]/Zipcode Phone Number [facility] Body fluid culture (05/26/2018 3:20 PM CDT)Only the most recent of2 resultswithin the time period is included. Result No growth [facility] Gram Stain Result 2+ WBCs [facility] Gram Stain Result No organisms seen [facility] Specimen Body Fluid - Ascites Performing Organization Address City/[facility]/Zipcode Phone Number [facility] [address] [place] [address] Body fluid cell count with differential (05/26/2018 3:20 PM CDT)Only the most recent of2 resultswithin the time period is included. Appearance Hazy (A) Clear [facility] Color Straw Colorless, Straw [facility] RBCs 1,220 (H) <=1 /uL [facility] Adjusted WBC Count 193 (H) <=5 /cu mm [facility] Lining Cells 14 (H) <=1 /cu mm [facility] % Segs 44 % [facility] % Lymphs 26 % [facility] % Monos 30 % [facility] % Eos 0 % [facility] % Baso 0 % [facility] Interpretation Negative for malignant [facility] cells. Pathologist: Stanislav Sofia M.D. [facility] (electronic signature) Container Body Fluid Sterile Cup [facility] Specimen Body Fluid - Ascites Performing Organization Address [facility] Phone Number [facility] [address] [place] [address] [phone] Potassium (05/26/2018 5:16 AM CDT)Only the most recent of3 resultswithin the time period is included. Potassium 3.7 3.5 - 5.5 meq/L [facility] Specimen Blood - Arm, Right Performing Organization Address [facility] Phone Number [facility] [address] [place] [address] Magnesium (05/26/2018 5:16 AM CDT)Only the most recent of7 resultswithin the time period is included. Magnesium 2.1 1.5 - 3.0 mg/dL [facility] Specimen Blood - Arm, Right Performing Organization Address [facility] Phone Number [facility] [address] [place] [address] Ammonia (05/26/2018 5:16 AM CDT)Only the most recent of3 resultswithin the time period is included. Ammonia 134 (H) 12 - 72 mol/L [facility] Specimen Blood - Arm, Right Performing Organization Address [facility] Phone Number [facility] [address] [place] [phone] Comprehensive metabolic panel (05/26/2018 5:16 AM CDT)Only the most recent of5 resultswithin the time period is included. Protein, Total 7.5 6.0 - 8.5 gm/dL [facility] Albumin 3.9 3.5 - 5.0 g/dL [facility] Alkaline Phosphatase 97 30 - 115 U/L [facility] Total Bilirubin 2.3 (H) 0.1 - 1.3 mg/dL [facility] Sodium 134 (L) 135 - 148 meq/L [facility] Potassium 3.7 3.5 - 5.5 meq/L [facility] Chloride 105 98 - 106 meq/L [facility] CO2 16 (L) 20 - 31 meq/L [facility] BUN 25 10 - 26 mg/dL [facility] Creatinine 1.74 (H) 0.50 - 1.20 mg/dL [facility] Glucose 116 (H) 70 - 110 mg/dL [facility] Calcium 9.6 8.5 - 10.5 mg/dL [facility] AST 44 (H) 5 - 40 U/L [facility] ALT 23 6 - 50 U/L [facility] EGFR 31Comment: ESTIMATED GFR mL/min/1.73 sq m [facility] IS NOT ACCURATE CREATININE CLEARANCE IN PREDICTING GLOMERULAR FILTRATION RATE. ESTIMATED GFR IS NOT APPLICABLE FOR DIALYSIS PATIENTS. Specimen Blood - Arm, Right Performing Organization Address City/State/Zipcode Phone Number [facility] [address] [place] [address] [phone] Prepare Leuko-Red RBC (05/25/2018 11:54 PM CDT)Only the most recent of2 resultswithin the time period is included. CROSSMATCH COMPATIBLE SAFETRACE TX Unit ABO O Pos SAFETRACE TX UNIT NUMBER [id number] SAFETRACE TX Status TRANSFUSED SAFETRACE TX Blood Bank Product RED BLOOD CELLS SAFETRACE TX PRODUCT CODE [id number] SAFETRACE TX CROSSMATCH COMPATIBLE SAFETRACE TX Unit ABO O Pos SAFETRACE TX UNIT NUMBER [id number] SAFETRACE TX Status TRANSFUSED SAFETRACE TX Blood Bank Product RED BLOOD CELLS SAFETRACE TX PRODUCT CODE [id number] SAFETRACE TX Specimen Other Performing Organization Address City/[facility]/Zipcode Phone Number SAFETRACE [place] CBC with platelet count + automated diff (05/25/2018 3:49 AM CDT)Only the most recent of12 resultswithin the time period is included. WBC 4.5 4.0 - 10.0 K/L [facility] RBC 3.28 (L) 4.00 - 5.00 M/L [facility] Hemoglobin 10.0 (L) 12.0 - 15.5 GM/DL [facility] Hematocrit 29.9 (L) 36.0 - 46.0 % [facility] MCV 91.2 82.0 - 99.0 fL [facility] MCH 30.5 27.0 - 33.0 pg [facility] MCHC 33.4 32.0 - 36.0 GM/DL [facility] RDW 17.4 (H) 12.0 - 15.0 % [facility] Platelets 105 (L) 150 - 430 K/CU MM [facility] MPV 10.5Comment: 6.0 - 11.5 fL [facility] MPV-Approximately 20% positive bias due to method change. nRBC 0 0 - 0 /100 WBC [facility] % Neutros 71 % [facility] % Lymphs 8 % [facility] % Monos 13 % [facility] % Eos 6 % [facility] % Baso 1 % [facility] # Neutros 3.22 1.80 - 8.00 K/L [facility] # Lymphs 0.38 (L) 1.48 - 4.50 K/L [facility] # Monos 0.57 0.00 - 1.30 K/L [facility] # Eos 0.29 0.00 - 0.50 K/L [facility] # Baso 0.05 0.00 - 0.20 K/L [facility] Immature 0 0 - 0 % [facility] Granulocytes-Relative Specimen Blood Performing Organization Address City/[facility]/Zipcode Phone Number [facility] [address] [place] [address] Transfuse Leuko-Red RBC (05/25/2018 12:17 AM CDT)Only the most recent of5 resultswithin the time period is included.Occult blood, stool (05/24/2018 1:38 PM CDT) Occult blood Positive (A) Negative [facility] Specimen Stool Performing Organization Address [facility] Phone Number [facility] [address] [place] [address] Sodium, random urine (05/24/2018 1:38 PM CDT)Only the most recent of2 resultswithin the time period is included. Sodium Urine 28 meq/L [facility] Specimen Urine Narrative Performed At [facility] Reference Range: No Normals Performing Organization Address [facility] Phone Number [facility] [address] [place] [address] [phone] Creatinine, random urine (05/24/2018 1:38 PM CDT)Only the most recent of2 resultswithin the time period is included. Creatinine, Ur 42.7 mg/dL [facility] Specimen Urine Narrative Performed At [facility] Reference Range: No Normals Performing Organization Address [facility] Phone Number [facility] [address] [place] [address] Type and screen, automated (05/24/2018 1:36 PM CDT)Only the most recent of2 resultswithin the time period is included. ABORh O POSITIVE [facility] Antibody Screen NEGATIVE [facility] Specimen Blood Performing Organization Address [facility] Phone Number [facility] [address] [place] [address] [phone] [facility] Alpha fetoprotein (AFP), tumor marker (05/24/2018 1:36 PM CDT)Only the most recent of2 resultswithin the time period is included. Alpha-Fetoprotein 5.5 <10.0 ng/mL [facility] Specimen Blood Performing Organization Address City/[facility]/Zipcode Phone Number [facility] [address] [place] [address] CENTER Hepatitis panel, acute (05/24/2018 1:36 PM CDT) Hep A IgM HEPATITIS A TEST NEGATIVE Nonreactive [facility] Hep B C IgM NON-REACTIVE Nonreactive [facility] Hepatitis C Ab NON-REACTIVE Nonreactive [facility] hepatitis B Surface Ag NON-REACTIVE Nonreactive [facility] Specimen Blood Performing Organization Address City/State/Zipcode Phone Number [facility] [address] [place] [address] [phone] CENTER US renal complete (05/24/2018 11:37 AM CDT) Narrative Performed At FINAL REPORT [facility] RENAL ULTRASOUND HISTORY: Acute kidney injury [...] MD Report Verified Date/Time:05/24/2018 11:53:08 Reading Location: [address] Reading Room Procedure Note Interface, External Ris [...] Report Verified Date/Time: 05/24/2018 11:53:08 Reading Location: [address] Transitional Reading Room Performing Organization Address City/State/Zipcode Phone Number [facility] CT brain without IV contrast (05/23/2018 5:55 PM CDT) Narrative Performed At FINAL REPORT [facility] CT head without contrast 05/23/2018 5:55 PM [...] MD Report Verified Date/Time:05/23/2018 17:56:33 Reading Location: [facility] Radiology Reading Room Procedure Note Interface, External [...] Report Verified Date/Time: 05/23/2018 17:56:33 Reading Location: [facility] Radiology Reading Room Performing Organization Address [facility] Phone Number GE RIS XR chest 1 view portable / bedside (05/23/2018 4:25 PM CDT) Narrative Performed At FINAL REPORT GE [facility] CHEST AP PORTABLE History provided: Altered mental status Heart size normal. Lungs clear and vascularity normal. IMPRESSION: Clear chest. Signed: Gonzalo Serrano MD Report Verified Date/Time:05/23/2018 16:22:47 Reading Location: [facility] Radiology Reading Room Procedure Note Interface, External Ris In - 05/23/2018 4:45 PM CDT FINAL REPORT CHEST AP PORTABLE History provided: Altered mental status Heart size normal. Lungs clear and vascularity normal. IMPRESSION: Clear chest. Signed: Gonzalo Serrano MD Report Verified Date/Time: 05/23/2018 16:22:47 Reading Location: [facility] Radiology Reading Room Performing Organization Address [facility] Phone Number GE RIS ECG 12 lead (05/23/2018 3:52 PM CDT)Only the most recent of3 resultswithin the time period is included. Narrative Performed At Ventricular Rate 98 BPM GE MUSE Atrial Rate 98 BPM P-R Interval 136 ms QRS Duration 74 ms Q-T Interval 434 ms QTC Calculation(Bazett) 554 ms P [place] 71 degrees R [place] 36 degrees T [place] 61 degrees Normal sinus rhythm Nonspecific ST abnormality Prolonged QT Abnormal ECG No previous ECGs available Procedure Note Interface, External Ris In - 05/26/2018 4:49 PM CDT Ventricular Rate 98 BPM Atrial Rate 98 BPM P-R Interval 136 ms QRS Duration 74 ms Q-T Interval 434 ms QTC Calculation(Bazett) 554 ms P [place] 71 degrees R [place] 36 degrees T [place] 61 degrees Normal sinus rhythm Nonspecific ST abnormality Prolonged QT Abnormal ECG No previous ECGs available Performing Organization Address [facility] Phone Number GE MUSE Urinalysis w/Microscopic (05/23/2018 3:47 PM CDT) Color, UA Yellow [facility] Clarity, UA Hazy [facility] Specific [place], UA 1.016 1.001 - 1.035 [facility] pH, UA 5.0 5.0 - 8.0 [facility] Protein, UA Negative Negative [facility] Glucose, UA Negative Negative [facility] Ketones, UA Negative Negative [facility] Bilirubin, UA Negative Negative [facility] Blood, UA Negative Negative [facility] Nitrite, UA Negative Negative [facility] Leukocytes, UA Negative Negative [facility] Urobilinogen, UA <1.0 0.2 - 1.0 mg/dL [facility] RBC, UA 1 /HPF [facility] WBC, UA 1 /HPF [facility] Bacteria, UA Rare [facility] Mucus Rare [facility] Squam Epithel, UA <1 /HPF [facility] Hyaline Casts, UA 4 /LPF [facility] Specimen Source [facility] Specimen Urine - Urine, Straight Catheter Performing Organization Address [facility] Phone Number [facility] [address] [place] [address] Urine culture (05/23/2018 3:47 PM CDT) Result No growth [facility] Specimen Urine - Urine, Straight Catheter Performing Organization Address [facility] Phone Number [facility] [address] [place], [place] [address] Prothrombin time/INR (05/23/2018 3:40 PM CDT)Only the most recent of4 resultswithin the time period is included. Protime 16.1 (H) 11.8 - 14.4 seconds [facility] INR 1.3 1.2 - 1.5 [facility] Specimen Blood - Arm, Right Narrative Performed At [facility] RECOMMENDED COUMADIN/WARFARIN INR THERAPY RANGES STANDARD DOSE: 2.0 - 3.0 Includes: PROPHYLAXIS for venous thrombosis, systemic embolization; TREATMENT for venous thrombosis and/or pulmonary embolus. HIGH RISK: Target INR is 2.5-3.5 for patients with mechanical heart valves. Performing Organization Address [facility] Phone Number [facility] [address] [place] [address] Blood culture (05/23/2018 3:39 PM CDT)Only the most recent of4 resultswithin the time period is included. Result No growth in 5 days [facility] Specimen Blood - Arm, Right Performing Organization Address [facility] Phone Number [facility] [address] [place] [address] Lactic acid, venous, whole blood (05/23/2018 3:38 PM CDT)Only the most recent of2 resultswithin the time period is included. Lactate, Venous 2.0Comment: Specimen moderately 0.5 - 2.2 mmol/L [facility] hemolyzed Specimen Blood - Line, Venous Narrative Performed At [facility] Effective 12/07/2015: Units/Reference Range Change New: 0.5-2.2 mmol/LPrevious: 5-20 mg/dL Performing Organization Address [facility] Number [facility] [address] [place] [address] Lipase (05/23/2018 3:38 PM CDT)Only the most recent of2 resultswithin the time period is included. Lipase 82 (H) 8 - 78 U/L [facility] Specimen Blood - Line, Venous Performing Organization Address [facility] Phone Number [facility] [address] [place] [address] RHYTHM STRIP - SCAN (02/18/2018 10:30 AM CDT) Narrative Performed At POC-Glucose meter (02/15/2018 11:14 AM CDT)Only the most recent of17 resultswithin the time period is included. POC-Glucose Meter 119 (H)Comment: TESTED AT 70 - 110 mg/dL [facility] [address] [facility] [address] Specimen Blood Performing Organization Address City/[facility]/Zipcode Phone Number [address] [address] CENTER CBC (Hemogram only) (02/15/2018 5:05 AM CDT)Only the most recent of3 resultswithin the time period is included. WBC 5.1 3.5 - 10.5 K/L [facility] RBC 2.79 (L) 3.93 - 5.22 M/L [facility] Hemoglobin 8.8 (L) 11.2 - 15.7 GM/DL [facility] Hematocrit 27.2 (L) 34.1 - 44.9 % [facility] MCV 97.5 (H) 79.4 - 94.8 fL [facility] MCH 31.5 25.6 - 32.2 pg [facility] MCHC 32.4 32.2 - 35.5 GM/DL [facility] RDW 18.8 (H) 11.7 - 14.4 % [facility] Platelets 86 (L) 150 - 450 K/CU MM [facility] MPV 12.6 (H) 9.4 - 12.3 fL [facility] nRBC 0 0 - 0 /100 WBC [facility] Specimen Blood Performing Organization Address City/State/Zipcode Phone Number [address] [address] CENTER Phosphorus (02/15/2018 5:05 AM CDT)Only the most recent of6 resultswithin the time period is included. Phosphorus 3.5 2.3 - 4.7 mg/dL [facility] Specimen Blood Performing Organization Address City/[facility] Phone Number [address] [phone] [place] Hepatic function panel (02/15/2018 5:05 AM CDT)Only the most recent of5 resultswithin the time period is included. Protein, Total 6.3 6.0 - 8.3 gm/dL [facility] Albumin 3.9 3.5 - 5.0 g/dL [facility] Total Bilirubin 1.7 (H) 0.2 - 1.2 mg/dL [facility] Bilirubin, Direct 1.0 (H) 0.1 - 0.5 mg/dL [facility] Alkaline Phosphatase 126 40 - 150 U/L [facility] AST 118 (H) 5 - 34 U/L [facility] ALT 56 (H) 6 - 55 U/L [facility] Specimen Blood Performing Organization Address [facility] Phone Number [address] [address] [place] aPTT (02/14/2018 3:12 PM CDT)Only the most recent of2 resultswithin the time period is included. PTT 28.9 22.5 - 36.0 seconds [facility] Specimen Blood - Central Venous Line Performing Organization Address City/[facility] Phone Number [address] [phone] [place] Prepare RBC (02/12/2018 11:54 PM CDT) CROSSMATCH COMPATIBLE SAFETRACE TX Unit ABO O Pos SAFETRACE TX UNIT NUMBER [id number] SAFETRACE TX Status RETURNED FROM ISSUE SAFETRACE TX Blood Bank Product RED BLOOD CELLS SAFETRACE TX PRODUCT CODE [id number] SAFETRACE TX CROSSMATCH COMPATIBLE SAFETRACE TX Unit ABO O Pos SAFETRACE TX UNIT NUMBER [id number] SAFETRACE TX Status TRANSFUSED SAFETRACE TX Blood Bank Product RED BLOOD CELLS [place] PRODUCT CODE [id number] [place] Performing Organization Address [facility]oid Phone Number [place] HIV-1 Antigen with HIV-1/2 Antibody (02/12/2018 5:29 AM CDT) HIV-1 Antigen with HIV 1&2 NON-REACTIVE Nonreactive [facility] Antibody [facility]ICAL [facility]ENTER Specimen Blood Performing Organization Address City/[facility] Centercode Phone Number [address] [address] [phone] CENTER PT/aPTT (02/11/2018 3:47 PM CDT)Only the most recent of2 resultswithin the time period is included. Protime 18.7 (H) 11.7 - 14.7 seconds [facility] INR 1.6 <=5.9 [facility] PTT 36.5 (H) 22.5 - 36.0 seconds [facility] Specimen Blood Narrative Performed At [facility] RECOMMENDED COUMADIN/WARFARIN INR THERAPY RANGES STANDARD DOSE: 2.0 - 3.0 Includes: PROPHYLAXIS for venous thrombosis, systemic embolization; TREATMENT for venous thrombosis and/or pulmonary embolus. HIGH RISK: Target INR is 2.5-3.5 for patients with mechanical heart valves. Performing Organization Address [facility]oid Phone Number [address] [phone] CENTER Tissue Exam (02/11/2018 1:38 PM CDT) Case Report Surgical Pathology Report Case: [id number] [facility] Authorizing Provider:Tamera Mayorga MD Collected: 02/11/2018 1338 MEDICAL CENTER Ordering Location: [place] [address] ICUReceived: 02/11/2018 1613 Pathologist: Herminia Hope MD Specimen:Hernia Sac, Umbilical DIAGNOSIS SKIN AND HERNIA SAC, EXCISION: [facility] - SKIN WITH ULCER, NECROSIS, HERNIA WITH FIBROSIS, ADHESION AND CHRONIC INFLAMMATION [facility] Signing Pathologist Direct Phone Line: [phone] CPT Code(s) 52170 [facility] CLINICAL HISTORY Incarcerated umbilical [facility] hernia [facility]ENTER SPECIMEN SOURCE Hernia sac umbilical [facility] GROSS DESCRIPTION The specimen is received in [facility] a formalin-filled container [facility] labeled with the patient's information and labeled "umbilical hernial sac" and consists of hemorrhagic membranous tissue measuring 6 x 3 x 0.2 cm with overlying brown skin measuring 5.5 x 3 x 0.3 cm, submitted in A1 and A2. There are no areas of suspicion. CG/ew MICROSCOPIC DESCRIPTION Performed [facility] Specimen Tissue - Hernia Sac, Umbilical Performing Organization Address [facility]oid Phone Number [address] [address] [phone] CENTER AFB culture + smear (02/11/2018 1:34 PM CDT) Result No acid-fast bacilli isolated in [facility] 42 days CENTER AFB Smear No acid fast bacilli seen [facility] Specimen Wound - Abdomen Performing Organization Address [facility] Centercode Phone Number [address] [address] CENTER Anaerobic culture (02/11/2018 1:34 PM CDT) Result No anaerobes isolated [facility] Specimen Wound - Abdomen Performing Organization Address City/[facility] Centercode Phone Number [address] [address] CENTER Surgically obtained culture + gram stain (02/11/2018 1:34 PM CDT) Result No growth [facility] Gram Stain Result <1+ WBCs [facility] Gram Stain Result No organisms seen [facility] Specimen Wound - Abdomen Performing Organization Address [facility]ode Phone Number [facility] [address] [phone] [place] Fungus culture + smear (02/11/2018 1:34 PM CDT) Result No fungus isolated in 28 days [facility] Fungus Smear No fungi seen [facility] Specimen Wound - Abdomen Performing Organization Address [facility] Centercode Phone Number [address] [address] [place] SPIN/CONCENTRATION CHARGE (02/11/2018 1:34 PM CDT) Concentration charged Done [facility] Specimen Wound - Abdomen Performing Organization Address [facility] Phone Number [address] [address] [place] Potassium-Stat Lab (02/11/2018 1:21 PM CDT) Potassium 3.9 3.6 - 5.5 meq/L [facility] Specimen Other Narrative Performed At THIS IS A VENOUS SAMPLE [facility] THIS IS A VENOUS SAMPLE THIS IS A VENOUS SAMPLE Performing Organization Address [facility] Phone Number [address] [address] [place] Sodium Na-Stat Lab (02/11/2018 1:21 PM CDT) Sodium 135 135 - 148 meq/L [facility] Specimen Other Narrative Performed At THIS IS A VENOUS SAMPLE [facility] THIS IS A VENOUS SAMPLE THIS IS A VENOUS SAMPLE Performing Organization Address [facility] Centercoid Phone Number [address] [address] [place] Glucose-Stat Lab (02/11/2018 1:21 PM CDT) Glucose 122 (H) 70 - 110 mg/dL [facility] Specimen Other Narrative Performed At THIS IS A VENOUS SAMPLE [facility] THIS IS A VENOUS SAMPLE THIS IS A VENOUS SAMPLE Performing Organization Address City/[facility]/Zipcode Phone Number [address] [address] CENTER HGB/HCT (H&H)-Stat Lab (02/11/2018 1:21 PM CDT) Hemoglobin 8.7 (L) 12.0 - 15.0 g/dL [facility] Hematocrit 26.0 (L) 36.0 - 45.0 % [facility] Specimen Other Narrative Performed At THIS IS A VENOUS SAMPLE [facility] Performing Organization Address City/[facility]/Zipcode Phone Number [address] [address] [phone] [place] Calcium, Ionized (02/11/2018 1:21 PM CDT) Calcium, Ion 1.07 (L) 1.12 - 1.27 mmol/L [facility] pH, Blood 7.28 [facility] Specimen Blood Performing Organization Address City/[facility] Centercode Phone Number [address] [address] [phone] [place] US abdomen complete (02/11/2018 6:57 AM CDT) Narrative Performed At FINAL REPORT [facility] Abdominal Ultrasound Clinical Diagnosis: Ascites acute renal [...] MD Report Verified Date/Time:02/11/2018 09:32:36 Reading Location: [address] Ultrasound Reading Room Procedure Note Interface, [...] Report Verified Date/Time: 02/11/2018 09:32:36 Reading Location: [facility] [id number] Ultrasound Reading Room Performing Organization Address City/State/Zipcode Phone Number [facility] CT abdomen/pelvis without iv contrast (02/11/2018 12:01 AM CDT) Narrative Performed At FINAL REPORT [facility] HISTORY : Hernia, complicated Technique: Multiple axial [...] MD Report Verified Date/Time:02/11/2018 07:50:19 Reading Location: [facility] Diagnostic Imaging Reading Room - [place] [address] Procedure Note Interface, External Ris In [...] Report Verified Date/Time: 02/11/2018 07:50:19 Reading Location: [facility] Diagnostic Imaging Reading Room - [place] [address] Performing Organization Address City/[facility]ercode Phone Number GE RIS Protein, random urine (02/10/2018 6:15 PM CDT) Protein, Urine 19 (H) 0 - 14 mg/dL [facility] Specimen Urine - Urine, Voided Performing Organization Address [facility]ercoid Phone Number [address] [address] [phone] [place] Screen, urine (02/10/2018 6:14 PM CDT) Preg Test, Ur Negative [facility] Specimen Urine - Urine, Voided Performing Organization Address [facility] Phone Number [address] [address] [phone] [place] REPORT OF PROCEDURE - ENDOSCOPY URL (02/10/2018 4:35 PM CDT) Narrative Performed At Urinalysis w/Microscopic + Reflex to Culture (02/10/2018 4:08 AM CDT) Color, UA Yellow [facility] Clarity, UA Hazy [facility] Specific [place], UA 1.013 1.001 - 1.035 [facility] pH, UA 6.0 5.0 - 8.0 [facility] Protein, UA 10 mg/dL (A) Negative [facility] Glucose, UA Negative Negative [facility] Ketones, UA Trace (A) Negative [facility] Bilirubin, UA Negative Negative [facility] Blood, UA Negative Negative [facility] Nitrite, UA Negative Negative [facility] Leukocytes, UA Negative Negative [facility] Urobilinogen, UA 0.2 0.2 - 1.0 mg/dL [facility] RBC, UA <1 /HPF [facility] WBC, UA 2 /HPF [facility] Bacteria, UA Rare [facility] Mucus Rare [facility] Squam Epithel, UA 8 /HPF [facility] Hyaline Casts, UA 70 /LPF [facility] Amorphous Crystals Rare [facility] Specimen Source [facility] Specimen Urine - Urine, Voided Performing Organization Address City/State/Zipcode Phone Number [facility] [address] [place] [address] CENTER Rapid drug screen, urine (02/10/2018 4:08 AM CDT) Barbiturate Screen Negative Negative [facility] Benzodiazepine Screen Negative Negative [facility] Cocaine (Metab.) Screen Negative Negative [facility] Methadone Screen Negative Negative [facility] Opiate Screen Negative Negative [facility] Cannabinoid Screen Negative Negative [facility] Amph/Methamph Screen Negative Negative [facility] Phencyclidine Screen Negative Negative [facility] Oxycodone Screen Negative Negative [facility] Specimen Urine - Urine, Voided Narrative Performed At [facility] DRUGCUTOFF CONC. Cocaine 300 ng/mL Nornyvohkgv49 ng/mL Zdtzzvflbjoeoy378 ng/mL Barbiturate 200 ng/mL Grxmkaogrrana72 ng/mL Rskrhw766 ng/mL Methadone 300 ng/mL Amphetamine/ 1000 ng/mL Methamphetamine Oxycodone 300 ng/mL This assay provides an unconfirmed qualitative test result for the clinical management of patients in emergency situations. Chain of custody not maintained. Some hqaw-hep-yznpabi medications, as well as adulterants, may cause inaccurate results. Clinical correlation should be applied. A more comprehensive drug screen or confirmation of a detected drug may be performed upon request. Performing Organization Address [facility] Centercode Phone Number [address] [phone] [place] Blood gas, venous (02/10/2018 2:00 AM CDT) pH, Ortiz 7.42 7.32 - 7.42 [facility] pCO2, Ortiz 28 (L) 41 - 51 mmHg [facility] pO2, Ortiz 34 25 - 40 mmHg [facility] O2 Sat, Ortiz 67.6 40.0 - 70.0 % [facility] HCO3, Ortiz 17 (L) 21 - 29 mmol/L [facility] Base Excess, Ortiz -6.2 (L) -2.0 - 3.0 mmol/L [facility] Patient Temperature 37.0 C [facility] Specimen Blood - Central Venous Line Performing Organization Address [facility]ercoid Phone Number [address] [address] [place] Troponin I (02/10/2018 1:54 AM CDT) Troponin I <0.01 0.00 - 0.03 ng/mL [facility] Specimen Blood Narrative Performed At [facility] Troponin I (TnI) levels must be interpreted [...] disease, and persistent tachyarrhythmia. Performing Organization Address [facility]ercode Phone Number [address] [address] [phone] [place] Fibrinogen (02/10/2018 1:54 AM CDT) Fibrinogen 372 225 - 434 mg/dl [facility] Specimen Blood Performing Organization Address [facility]ercoid Phone Number [address] [address] [place] Creatine Kinase (CK), Total and MB (02/10/2018 1:54 AM CDT) Total CK 30 29 - 200 U/L [facility] CK-MB 0.4 0.0 - 6.6 ng/mL [facility] MB Relative Index 1.3 % [facility] Specimen Blood Narrative Performed At CK-MB Reference Range: [facility] <6.7Normal 6.7-10.0Borderline >10.0 Abnormal Performing Organization Address [facility] Phone Number [address] [address] [place] Ethanol (02/10/2018 1:54 AM CDT) Ethanol Lvl <10 <=10 mg/dL [facility] Specimen Blood Performing Organization Address [facility] Phone Number [address] [address] [phone] [place] Hepatitis A antibody, IgG (11/27/2017 1:34 PM CDT) Hep A IgG Nonreactive Nonreactive [facility] Specimen Blood Performing Organization Address [facility] Centercode Phone Number [address] [address] [phone] [place] Mitochondrial Antibodies, M2 (11/27/2017 1:34 PM CDT) Mitochondria M2 Ab <20.0 See Note: U [facility] Comment: Reference Range: NEGATIVE:< OR=20.0 EQUIVOCAL: 20.1-24.9 POSITIVE:> OR=25.0 Specimen Blood Narrative Performed At Performing Lab [facility] [employer] [facility] [address] [address] Lizette Cason MD, PhD, ABIMBOLA Performing Organization Address City/[facility] Centercoid Phone Number [place] [address] [place] [address] Iron, TIBC, % sat. (without ferritin) (11/27/2017 1:34 PM CDT) Iron 37 (L) 40 - 160 ug/dL [facility] TIBC 219 (L) 250 - 450 ug/dL [facility] Iron % Saturation 17 (L) 20 - 55 % [facility] Specimen Blood Performing Organization Address [facility]ercoid Phone Number [address] [address] [place] Hepatitis C antibody (11/27/2017 1:34 PM CDT) Hepatitis C Ab NON-REACTIVE Nonreactive [facility] Specimen Blood Performing Organization Address [facility]ercoid Phone Number [address] [address] [place] Actin (Smooth Muscle) Antibody, IgG (11/27/2017 1:34 [...] Specimen Blood Narrative Performed At Performing Lab [facility] E[facility] [address] [place] [address] Lizette Cason MD, PhD, ABIMBOL[place] Performing Organization Address [facility] Centercode Phone Number [facility] [place] [address] [facility] Xgajj-2-Mtlueyaczro (11/27/2017 1:34 PM CDT) A-1 Antitrypsin 151.80 90.00 - 200.00 mg/dL [facility] Specimen Blood Performing Organization Address City/[facility]/Zipcode Phone Number [address] [address] [phone] CENTER LÓPE[place] Titer & Pattern (11/27/2017 1:34 PM CDT) L[place] Titer 1:40 [facility] LÓPEZ Pattern Speckled [facility] Specimen Blood Performing Organization Address [facility]/Zipcode Phone Number [address] [address] CENTER Ceruloplasmin (11/27/2017 1:34 PM CDT) Ceruloplasmin 25 18 - 53 mg/dL [facility] Comment: Adults:Males: 18-36 mg/dL Females: 18-53 mg/dL Pediatrics:Males (mg/dL)Females (mg/dL) 0-30 Days 8-25 3-28 31 Days-11 Month 15-4815-43 1-3 Kyjps96-8115-22 4-6 Kzfxl64-8987-93 7-9 Ybbvy56-4314-24 10-12 Fwbpj37-0540-35 13-15 Gtuzz66-2570-80 16-18 Ysfkv86-3631-96 The pediatric ranges are derived from the following criteria: Yehuda SJ, Buck MERCHANT, Lorna J et al Pediatric reference ranges for Ktrn-8-Qroqcpcjdthdp and ceruloplasmin. Clin. Chem 1997; 43:S1999 Pediatric Reference Ranges, 2nd., [place] Yehudaet al. editors. [employer], [place], [place] 1997. Specimen Blood Narrative Performed At Performing Lab [facility] *[facility], [address] [place] [id number] Florencia Almanzar MD, PhD Performing Organization Address City/State/Zipcode Phone Number [facility], [place] [address] [facility] [address] [facility] Hepatitis B core antibody, total (11/27/2017 1:34 PM CDT) Hep B Core Total Ab NON-REACTIVE Nonreactive [facility] Specimen Blood Performing Organization Address City/[facility] Centercode Phone Number [address] [address] CENTER Hepatitis B surface antibody (11/27/2017 1:34 PM CDT) Hep B S Ab <8.0 <8.0 mIU/mL [facility] Specimen Blood Performing Organization Address [facility] Centercode Phone Number [address] [address] [phone] [place] Hepatitis B surface antigen (11/27/2017 1:34 PM CDT) hepatitis B Surface Ag NON-REACTIVE Nonreactive [facility] Specimen Blood Performing Organization Address [facility]ode Phone Number [address] [address] [phone] CENTER Anti-Nuclear Antibody (LÓPEZ) (11/27/2017 1:34 PM CDT) LÓPEZ Positive (A) Negative [facility] Specimen Blood Performing Organization Address [facility]/Zipcode Phone Number [address] [address] CENTER Ferritin (11/27/2017 1:34 PM CDT) Ferritin 237 5 - 275 ng/mL [facility] Specimen Blood Performing Organization Address [facility]/Zipcode Phone Number [address] [address] CENTER Bilirubin, direct (11/27/2017 1:34 PM CDT) Bilirubin, Direct 0.6 (H) 0.1 - 0.5 mg/dL [facility] CENTER Specimen Blood Performing Organization Address City/State/Zipcode Phone Number [facility] [address] [place] [address] CENTER after 10/05/2017 Insurance Payer Benefit Plan / Group Subscriber ID Type Phone Address GARCIA MEDICAID MEDICAID GARCIA xxxxxxxxx Advance Directives For more information, please contact:[facility] [place] [address] [phone] Code Status Date Activated Date Inactivated Comments Full Code 05/23/2018 8:59 PM 05/27/2018 7:11 PM This code status was determined by: Patient Full Code 02/10/2018 2:37 AM 02/15/2018 7:08 PM This code status was determined by: Patient
--- OUTSIDE RECORDS SUMMARY | 2018-10-06 23:20 | XMS REPORT ---
:1970 [facility] Address [address] [place] [address] [place] [address] Care Team Providers Name Role Phone CLEVE [...] FINAL REPORT PATIENT ID: [id number] exam:->ascitesReason for [id number] Ultrasound exam:->possible sbpShould guided paracentesis, this be performed at the 05/23/2018. Clinical bedside?->Yes History: Ascites. Sedation: None. Adjunct Art History Instructor: Mckenzie. Shipping Lead Person: None. Estimated Blood Loss: < 1 cc. [...] was achieved with 1% lidocaine, a 5 Brazilian one-step catheter was advanced into the peritoneal cavity under ultrasound guidance. After completion of drainage, the catheter was removed. There was no evidence of complication. Patient Disposition: The patient was discharged from the ultrasound department after the paracentesis, in good condition. Impression:Successful ultrasound guided paracentesis. Signed: Pino Rincon Verified Date/Time: 06/02/2018 08:43:07 Reading Location: [facility] B1 P048 Angio Body Reading Room FLUID CULTURE + GRAM STAIN 2018-05-29 08:26:00 Test Item Value Reference Range Comments CULTURE (BEAKER) (test eiwx=4000) No growth GRAM STAIN RESULT (BEAKER) (test rfwc=9063) 2+ WBCs GRAM STAIN RESULT (BEAKER) (test uyuy=72985) No organisms seen BLOOD [id number] 19:00:00 Test Item Value Reference Range Comments CULTURE (BEAKER) (test enck=7117) No growth in 5 days BLOOD [id number] 19:00:00 Test Item Value Reference Range Comments CULTURE (BEAKER) (test vciz=5577) No growth in 5 days BODY FLUID CELL COUNT WITH [id number] 15:04:00 Test Item Value Reference Range Comments APPEARANCE FLUID (BEAKER) (test Hazy Clear bgwz=623) COLOR FLUID (BEAKER) (test Straw Colorless, Straw aekn=342) RBC FLUID (BEAKER) (test 1220 /uL <=1 uidh=850) ADJUSTED WBC FLUID (BEAKER) 193 /cu mm <=5 (test rnrs=1488) LINING CELLS (BEAKER) (test 14 /cu mm <=1 objf=4488) NEUTROPHILS FLUID (BEAKER) 44 % (test apav=0160) LYMPHS FLUID (BEAKER) (test 26 % bxxy=192) MONO/MACROPHAGE FLUID (BEAKER) 30 % (test kofk=267) EOSINOPHILS FLUID (BEAKER) 0 % (test ubxo=476) BASO FLUID (BEAKER) (test 0 % fipf=540) INTERPRETATION-210 (BEAKER) Negative for malignant (test noyl=1867) cells. [id number]-SJXHUTWGDUH-927 (BEAKER) Stanislav Sofia M.D. (test lgkx=4733) (electronic signature) CONTAINER BODY FLUID (BEAKER) Sterile Cup (test mihg=9081) BASIC METABOLIC [id number] 03:33:00 Test Item Value Reference Range Comments SODIUM (BEAKER) (test 134 meq/L 135-148 aosk=981) POTASSIUM (BEAKER) (test 3.5 meq/L 3.5-5.5 eoly=362) CHLORIDE (BEAKER) (test 107 meq/L 98-106 djso=286) CO2 (BEAKER) (test 15 meq/L 20-31 nvwq=123) BLOOD UREA NITROGEN 22 mg/dL 10-26 (BEAKER) (test maen=047) CREATININE (BEAKER) (test 1.51 mg/dL 0.50-1.20 hxel=343) GLUCOSE RANDOM (BEAKER) 105 mg/dL 70-110 (test zgtu=626) CALCIUM (BEAKER) (test 9.7 mg/dL 8.5-10.5 asmq=338) EGFR (BEAKER) (test 37 mL/min/1.73 sq m ESTIMATED GFR IS NOT rbka=6178) ACCURATE CREATININE CLEARANCE IN PREDICTING GLOMERULAR FILTRATION RATE. ESTIMATED GFR IS NOT APPLICABLE FOR DIALYSIS PATIENTS. Specimen slightly ictericU/S, [id number] 16:05:00Reason for exam:-& gt;ascites, please only remove about 3L, pt with ZUNILDA too, dont want to shift fluidbalanceFINAL REPORT Ultrasound guided paracentesis , 05/26/2018. Clinical History:Ascites. Sedation: None. Adjunct Art History Instructor: Vishnu Biggs MD Shipping Lead Person: None. Estimated Blood Loss: < 1 cc. [...] achieved with 1 % lidocaine, a 5 Brazilian one-step catheter was advanced into the peritoneal cavity under ultrasound guidance. After completion of drainage, the catheter was removed. There was no evidence ofcomplication. Impression:Successful ultrasound guided paracentesis. Signed: [facility]nu [facility] Verified Date/ Time: 05/26/2018 16:05:11 Reading Location: [facility] Radiology Reading Room COMPREHENSIVE METABOLIC [id number] 05:55:00 Test Item Value Reference Range Comments TOTAL PROTEIN (BEAKER) 7.5 gm/dL 6.0-8.5 (test inzj=206) ALBUMIN (BEAKER) (test 3.9 g/dL 3.5-5.0 yiko=3652) ALKALINE PHOSPHATASE 97 U/L 30-115 (BEAKER) (test vdob=052) BILIRUBIN TOTAL (BEAKER) 2.3 mg/dL 0.1-1.3 (test oddk=228) SODIUM (BEAKER) (test 134 meq/L 135-148 qwdq=231) POTASSIUM (BEAKER) (test 3.7 meq/L 3.5-5.5 kost=720) CHLORIDE (BEAKER) (test 105 meq/L 98-106 onlx=182) CO2 (BEAKER) (test 16 meq/L 20-31 vles=526) BLOOD UREA NITROGEN 25 mg/dL 10-26 (BEAKER) (test uvgm=056) CREATININE (BEAKER) (test 1.74 mg/dL 0.50-1.20 tnlr=441) GLUCOSE RANDOM (BEAKER) 116 mg/dL 70-110 (test rmio=293) CALCIUM (BEAKER) (test 9.6 mg/dL 8.5-10.5 eeoz=548) AST (SGOT) (BEAKER) (test 44 U/L 5-40 tnqf=329) ALT (SGPT) (BEAKER) (test 23 U/L 6-50 xapq=334) EGFR (BEAKER) (test 31 mL/min/1.73 sq m ESTIMATED GFR IS NOT hgnx=9934) ACCURATE CREATININE CLEARANCE IN PREDICTING GLOMERULAR FILTRATION RATE. ESTIMATED GFR IS NOT APPLICABLE FOR DIALYSIS PATIENTS. [id number] 05:51:00 Test Item Value Reference Range Comments POTASSIUM (BEAKER) (test zkab=166) 3.7 meq/L 3.5-5.5 [id number] 05:51:00 Test Item Value Reference Range Comments MAGNESIUM (BEAKER) (test kvfp=295) 2.1 mg/dL 1.5-3.0 [id number] 05:31:00 Test Item Value Reference Range Comments AMMONIA (BEAKER) (test welm=373) 134 mol/L 12-72 URINE [id number] 12:48:00 Test Item Value Reference Range Comments CULTURE (BEAKER) (test yryp=7632) No growth BASIC METABOLIC [id number] 04:24:00 Test Item Value Reference Range Comments SODIUM (BEAKER) (test 131 meq/L 135-148 ytaq=347) POTASSIUM (BEAKER) (test 3.5 meq/L 3.5-5.5 moie=880) CHLORIDE (BEAKER) (test 103 meq/L 98-106 mndi=382) CO2 (BEAKER) (test 17 meq/L 20-31 kunv=449) BLOOD UREA NITROGEN 27 mg/dL 10-26 (BEAKER) (test oxbe=839) CREATININE (BEAKER) (test 2.29 mg/dL 0.50-1.20 ccov=068) GLUCOSE RANDOM (BEAKER) 93 mg/dL 70-110 (test kbio=716) CALCIUM (BEAKER) (test 9.2 mg/dL 8.5-10.5 wkav=011) EGFR (BEAKER) (test 23 mL/min/1.73 sq m ESTIMATED GFR IS NOT sslj=9487) ACCURATE CREATININE CLEARANCE IN PREDICTING GLOMERULAR FILTRATION RATE. ESTIMATED GFR IS NOT APPLICABLE FOR DIALYSIS PATIENTS. CBC W/PLT COUNT & AUTO [id number] 03:55:00 Test Item Value Reference Range Comments WHITE BLOOD CELL COUNT (BEAKER) 4.5 K/ L 4.0-10.0 (test ojqb=965) RED BLOOD CELL COUNT (BEAKER) 3.28 M/ L 4.00-5.00 (test ulqz=330) HEMOGLOBIN (BEAKER) (test 10.0 GM/DL 12.0-15.5 rwoo=903) HEMATOCRIT (BEAKER) (test 29.9 % 36.0-46.0 gxio=122) MEAN CORPUSCULAR VOLUME 91.2 fL 82.0-99.0 (BEAKER) (test vosq=902) MEAN CORPUSCULAR HEMOGLOBIN 30.5 pg 27.0-33.0 (BEAKER) (test bplb=439) MEAN CORPUSCULAR HEMOGLOBIN 33.4 GM/DL 32.0-36.0 CONC (BEAKER) (test xpgl=320) RED CELL DISTRIBUTION WIDTH 17.4 % 12.0-15.0 (BEAKER) (test werj=740) PLATELET COUNT (BEAKER) (test 105 K/CU MM 150-430 azxi=740) MEAN PLATELET VOLUME (BEAKER) 10.5 fL 6.0-11.5 MPV-Approximately 20% (test kxej=029) positive bias due to method change. NUCLEATED RED BLOOD CELLS 0 /100 WBC 0-0 (BEAKER) (test shrj=944) NEUTROPHILS RELATIVE PERCENT 71 % (BEAKER) (test njit=546) LYMPHOCYTES RELATIVE PERCENT 8 % (BEAKER) (test alyj=085) MONOCYTES RELATIVE PERCENT 13 % (BEAKER) (test jhbk=312) EOSINOPHILS RELATIVE PERCENT 6 % (BEAKER) (test vbiy=031) BASOPHILS RELATIVE PERCENT 1 % (BEAKER) (test qjnh=978) NEUTROPHILS ABSOLUTE COUNT 3.22 K/ L 1.80-8.00 (BEAKER) (test bcer=968) LYMPHOCYTES ABSOLUTE COUNT 0.38 K/ L 1.48-4.50 (BEAKER) (test uqvl=745) MONOCYTES ABSOLUTE COUNT 0.57 K/ L 0.00-1.30 (BEAKER) (test qiry=253) EOSINOPHILS ABSOLUTE COUNT 0.29 K/ L 0.00-0.50 (BEAKER) (test jcuu=107) BASOPHILS ABSOLUTE COUNT 0.05 K/ L 0.00-0.20 (BEAKER) (test rgsx=791) IMMATURE GRANULOCYTES-RELATIVE 0 % 0-0 PERCENT (BEAKER) (test ctkk=6192) HEPATITIS PANEL, [id number] 20:47:00 Test Item Value Reference Range Comments HEPATITIS A IGM ANTIBODY (BEAKER) (test Nonreactive Nonreactive sifx=728) HEPATITIS B CORE IGM ANTIBODY (BEAKER) (test Nonreactive Nonreactive bvbz=762) HEPATITIS C ANTIBODY (BEAKER) (test zkiu=570) Nonreactive Nonreactive HEPATITIS B SURFACE ANTIGEN (2) (BEAKER) (test Nonreactive Nonreactive ynia=1708) ALPHA FETOPROTEIN (AFP), TUMOR [id number] 19:52:00 Test Item Value Reference Range Comments ALPHA-FETOPROTEIN (BEAKER) (test gtoy=2477) 5.5 ng/mL <10.0 CREATININE, RANDOM [id number] 14:08:00 Test Item Value Reference Range Comments CREATININE URINE (BEAKER) (test onhd=076) 42.7 mg/dL Reference Range: No NormalsSODIUM, RANDOM [id number] 14:08:00 Test Item Value Reference Range Comments SODIUM URINE (BEAKER) (test mfyd=626) 28 meq/L Reference Range: No NormalsOCCULT BLOOD, [id number] 13:56:00 Test Item Value Reference Range Comments FECAL OCCULT BLOOD (BEAKER) (test fqox=579) Positive Negative U/S, RENAL, [id number] 11:53:00Reason for exam:->akiFINAL REPORT RENAL ULTRASOUND HISTORY: Acute kidney injury COMPARISON : Abdominal ultrasound 02/11/2018 TECHNIQUE: Real-time ultrasound of the kidneys was performed. FINDINGS: Thekidneys are normal in size. The right kidney measures 11.6 cm in length and the left kidney hazudvzq97.1 cm in length. Renal cortical thickness measures [...] MDReport Verified Date/Time: 05/24/2018 11:53:08 Reading Location: [address] Reading Room BASIC METABOLIC [id number] 05:13:00 Test Item Value Reference Range Comments SODIUM (BEAKER) (test 131 meq/L 135-148 vhjf=979) POTASSIUM (BEAKER) (test 2.8 meq/L 3.5-5.5 dwqf=069) CHLORIDE (BEAKER) (test 101 meq/L 98-106 eurl=030) CO2 (BEAKER) (test 17 meq/L 20-31 ggxw=742) BLOOD UREA NITROGEN 28 mg/dL 10-26 (BEAKER) (test kssj=393) CREATININE (BEAKER) (test 2.85 mg/dL 0.50-1.20 ughk=641) GLUCOSE RANDOM (BEAKER) 91 mg/dL 70-110 (test vpjm=631) CALCIUM (BEAKER) (test 9.0 mg/dL 8.5-10.5 gomz=535) EGFR (BEAKER) (test 18 mL/min/1.73 sq m ESTIMATED GFR IS NOT dvrn=8036) ACCURATE CREATININE CLEARANCE IN PREDICTING GLOMERULAR FILTRATION RATE. ESTIMATED GFR IS NOT APPLICABLE FOR DIALYSIS PATIENTS. CBC W/PLT COUNT & AUTO [id number] 04:39:00 Test Item Value Reference Range Comments WHITE BLOOD CELL COUNT (BEAKER) 5.4 K/ L 4.0-10.0 (test pygp=602) RED BLOOD CELL COUNT (BEAKER) 2.26 M/ L 4.00-5.00 (test zyna=481) HEMOGLOBIN (BEAKER) (test 7.2 GM/DL 12.0-15.5 jcfg=509) HEMATOCRIT (BEAKER) (test 21.3 % 36.0-46.0 jtng=069) MEAN CORPUSCULAR VOLUME 94.2 fL 82.0-99.0 (BEAKER) (test xblf=881) MEAN CORPUSCULAR HEMOGLOBIN 31.9 pg 27.0-33.0 (BEAKER) (test bqgp=964) MEAN CORPUSCULAR HEMOGLOBIN 33.8 GM/DL 32.0-36.0 CONC (BEAKER) (test nvor=176) RED CELL DISTRIBUTION WIDTH 17.1 % 12.0-15.0 (BEAKER) (test fggp=069) PLATELET COUNT (BEAKER) (test 98 K/CU MM 150-430 bxzl=249) MEAN PLATELET VOLUME (BEAKER) 10.4 fL 6.0-11.5 MPV-Approximately 20% (test pxvn=664) positive bias due to method change. NUCLEATED RED BLOOD CELLS 0 /100 WBC 0-0 (BEAKER) (test jrbw=584) NEUTROPHILS RELATIVE PERCENT 77 % (BEAKER) (test smcb=505) LYMPHOCYTES RELATIVE PERCENT 7 % (BEAKER) (test wqpu=517) MONOCYTES RELATIVE PERCENT 10 % (BEAKER) (test sdxf=968) EOSINOPHILS RELATIVE PERCENT 5 % (BEAKER) (test cnni=939) BASOPHILS RELATIVE PERCENT 1 % (BEAKER) (test uclq=029) NEUTROPHILS ABSOLUTE COUNT 4.15 K/ L 1.80-8.00 (BEAKER) (test yluy=895) LYMPHOCYTES ABSOLUTE COUNT 0.35 K/ L 1.48-4.50 (BEAKER) (test pkgi=706) MONOCYTES ABSOLUTE COUNT 0.55 K/ L 0.00-1.30 (BEAKER) (test nubi=457) EOSINOPHILS ABSOLUTE COUNT 0.27 K/ L 0.00-0.50 (BEAKER) (test exvb=744) BASOPHILS ABSOLUTE COUNT 0.04 K/ L 0.00-0.20 (BEAKER) (test zkbs=022) IMMATURE GRANULOCYTES-RELATIVE 0 % 0-0 PERCENT (BEAKER) (test bosk=4563) BASIC METABOLIC [id number] 19:11:00 Test Item Value Reference Range Comments SODIUM (BEAKER) (test 130 meq/L 135-148 tpld=876) POTASSIUM (BEAKER) (test 3.8 meq/L 3.5-5.5 Specimen slightly jzzj=649) hemolyzed CHLORIDE (BEAKER) (test 100 meq/L 98-106 qefb=741) CO2 (BEAKER) (test 17 meq/L 20-31 lkvg=130) BLOOD UREA NITROGEN 27 mg/dL 10-26 (BEAKER) (test yzmf=362) CREATININE (BEAKER) (test 2.86 mg/dL 0.50-1.20 Specimen slightly qxpc=739) hemolyzed GLUCOSE RANDOM (BEAKER) 97 mg/dL 70-110 (test zmch=773) CALCIUM (BEAKER) (test 8.8 mg/dL 8.5-10.5 dqpy=882) EGFR (BEAKER) (test 18 mL/min/1.73 sq m ESTIMATED GFR IS NOT iizt=9667) ACCURATE CREATININE CLEARANCE IN PREDICTING GLOMERULAR FILTRATION RATE. ESTIMATED GFR IS NOT APPLICABLE FOR DIALYSIS PATIENTS. CT, BRAIN, WITHOUT [id number] 17:56:00Reason for exam:->ALTERED MENTAL STATUSReason for exam:->BLOATEDReason [...] Silver Verified Date/Time: 05/23/2018 17:56:33 Reading Location: [facility] Radiology Reading Room COMPREHENSIVE METABOLIC [id number] 16:54:00 Test Item Value Reference Range Comments TOTAL PROTEIN (BEAKER) 7.2 gm/dL 6.0-8.5 Specimen slightly (test yqmq=767) hemolyzed ALBUMIN (BEAKER) (test 3.5 g/dL 3.5-5.0 Specimen slightly bsii=7112) hemolyzed ALKALINE PHOSPHATASE 122 U/L 30-115 (BEAKER) (test piab=867) BILIRUBIN TOTAL (BEAKER) 1.5 mg/dL 0.1-1.3 Specimen slightly (test byzq=116) hemolyzed SODIUM (BEAKER) (test 131 meq/L 135-148 guif=036) POTASSIUM (BEAKER) (test 2.9 meq/L 3.5-5.5 Specimen slightly wabu=701) hemolyzed CHLORIDE (BEAKER) (test 101 meq/L 98-106 wtzv=841) CO2 (BEAKER) (test 16 meq/L 20-31 fqzn=791) BLOOD UREA NITROGEN 27 mg/dL 10-26 (BEAKER) (test xbmr=717) CREATININE (BEAKER) (test 2.98 mg/dL 0.50-1.20 Specimen slightly vumn=123) hemolyzed GLUCOSE RANDOM (BEAKER) 99 mg/dL 70-110 (test wgbz=766) CALCIUM (BEAKER) (test 8.9 mg/dL 8.5-10.5 xjlb=960) AST (SGOT) (BEAKER) (test 53 U/L 5-40 Specimen slightly bcsj=544) hemolyzed ALT (SGPT) (BEAKER) (test 23 U/L 6-50 Specimen slightly zbzx=999) hemolyzed EGFR (BEAKER) (test 17 mL/min/1.73 sq m ESTIMATED GFR IS NOT taye=8601) ACCURATE CREATININE CLEARANCE IN PREDICTING GLOMERULAR FILTRATION RATE. ESTIMATED GFR IS NOT APPLICABLE FOR DIALYSIS PATIENTS. [id number] 16:38:00 Test Item Value Reference Range Comments LIPASE (BEAKER) (test slve=129) 82 U/L 8-78 PROTHROMBIN [id number] 16:28:00 Test Item Value Reference Range Comments PROTIME (BEAKER) (test zqdh=887) 16.1 seconds 11.8-14.4 INR (BEAKER) (test cutj=241) 1.3 1.2-1.5 RECOMMENDED COUMADIN/WARFARIN INR THERAPY RANGESSTANDARD DOSE: 2.0 - 3.0 Includes: PROPHYLAXIS forvenous thrombosis, systemic embolization; TREATMENT for venous thrombosis and/or pulmonary embolus.HIGH RISK: Target INR is 2.5-3.5 for patients with mechanical heart valves.CBC W/PLT COUNT & AUTO [id number] 16:26:00 Test Item Value Reference Range Comments WHITE BLOOD CELL COUNT (BEAKER) 7.1 K/ L 4.0-10.0 (test mhce=274) RED BLOOD CELL COUNT (BEAKER) 2.50 M/ L 4.00-5.00 (test pzcj=739) HEMOGLOBIN (BEAKER) (test 8.0 GM/DL 12.0-15.5 fwdd=481) HEMATOCRIT (BEAKER) (test 24.1 % 36.0-46.0 wdoe=375) MEAN CORPUSCULAR VOLUME 96.4 fL 82.0-99.0 (BEAKER) (test xkwc=125) MEAN CORPUSCULAR HEMOGLOBIN 32.0 pg 27.0-33.0 (BEAKER) (test dsgf=232) MEAN CORPUSCULAR HEMOGLOBIN 33.2 GM/DL 32.0-36.0 CONC (BEAKER) (test jxaw=415) RED CELL DISTRIBUTION WIDTH 17.3 % 12.0-15.0 (BEAKER) (test jxjf=176) PLATELET COUNT (BEAKER) (test 115 K/CU MM 150-430 pnjv=233) MEAN PLATELET VOLUME (BEAKER) 11.3 fL 6.0-11.5 MPV-Approximately 20% (test ibar=726) positive bias due to method change. NUCLEATED RED BLOOD CELLS 0 /100 WBC 0-0 (BEAKER) (test rbem=739) NEUTROPHILS RELATIVE PERCENT 90 % (BEAKER) (test akvv=060) LYMPHOCYTES RELATIVE PERCENT 4 % (BEAKER) (test zulh=969) MONOCYTES RELATIVE PERCENT 4 % (BEAKER) (test ajxd=227) EOSINOPHILS RELATIVE PERCENT 1 % (BEAKER) (test irty=772) BASOPHILS RELATIVE PERCENT 1 % (BEAKER) (test uhrp=953) NEUTROPHILS ABSOLUTE COUNT 6.34 K/ L 1.80-8.00 (BEAKER) (test greg=771) LYMPHOCYTES ABSOLUTE COUNT 0.25 K/ L 1.48-4.50 (BEAKER) (test zyjo=698) MONOCYTES ABSOLUTE COUNT 0.30 K/ L 0.00-1.30 (BEAKER) (test rylc=349) EOSINOPHILS ABSOLUTE COUNT 0.10 K/ L 0.00-0.50 (BEAKER) (test femn=507) BASOPHILS ABSOLUTE COUNT 0.04 K/ L 0.00-0.20 (BEAKER) (test venz=030) IMMATURE GRANULOCYTES-RELATIVE 0 % 0-0 PERCENT (BEAKER) (test oebb=3940) RAD, CHEST, 1 VIEW, NON [id number] 16:22:00Reason for exam:->altered mental statusShould this be performed at the bedside?->YesIs the patient ?->NoFINAL REPORT CHEST AP PORTABLE History provided: Altered mental status Heart size normal. Lungs clear and vascularity normal. IMPRESSION: Clear chest. Signed: Gonzalo Serrano MDReport Verified Date/ Time: 05/23/2018 16:22:47 Reading Location: [facility] Radiology Reading Room URINALYSIS W/ [id number] 16:19:00 Test Item Value Reference Range Comments COLOR (BEAKER) (test zymv=256) Yellow CLARITY (BEAKER) (test qlbv=376) Hazy SPECIFIC GRAVITY UA (BEAKER) (test xwkg=902) 1.016 1.001-1.035 PH UA (BEAKER) (test ntju=004) 5.0 5.0-8.0 PROTEIN UA (BEAKER) (test yywg=122) Negative Negative GLUCOSE UA (BEAKER) (test guro=105) Negative Negative KETONES UA (BEAKER) (test zdtz=564) Negative Negative BILIRUBIN UA (BEAKER) (test hvop=472) Negative Negative BLOOD UA (BEAKER) (test sqbe=979) Negative Negative NITRITE UA (BEAKER) (test czcn=371) Negative Negative LEUKOCYTE ESTERASE UA (BEAKER) (test xgdh=270) Negative Negative UROBILINOGEN UA (BEAKER) (test ndpi=931) < mg/dL 0.2-1.0 RBC UA (BEAKER) (test gjvk=765) 1 /HPF WBC UA (BEAKER) (test rmpj=874) 1 /HPF BACTERIA (BEAKER) (test fgyn=084) Rare MUCUS (BEAKER) (test fsbp=3691) Rare SQUAMOUS EPITHELIAL (BEAKER) (test ippn=218) < /HPF HYALINE CASTS (BEAKER) (test indn=068) 4 /LPF SOURCE(BEAKER) (test nwgq=6472) LACTIC ACID, VENOUS, WHOLE [id number] 16:12:00 Test Item Value Reference Range Comments LACTATE BLOOD VENOUS (2) 2.0 mmol/L 0.5-2.2 Specimen moderately hemolyzed (BEAKER) (test zuva=2868) Effective 12/07/2015: Units/Reference Range ChangeNew: 0.5-2.2 mmol/L Previous: 5 -20 mg/[id number] 16:07:00 Test Item Value Reference Range Comments AMMONIA (BEAKER) (test 90 mol/L 12-72 Specimen moderately hemolyzed yrrx=706) AFB CULTURE + [id number] 00:02:00 Test Item Value Reference Range Comments CULTURE (BEAKER) (test No acid-fast bacilli isolated shal=3143) in 42 days AFB SMEAR (BEAKER) (test No acid fast bacilli seen fauq=355) FUNGUS CULTURE + [id number] 12:57:00 Test Item Value Reference Range Comments CULTURE (BEAKER) (test No fungus isolated in 28 days ohmc=5469) FUNGUS SMEAR (BEAKER) (test No fungi seen mzph=5248) BODY FLUID CULTURE + GRAM [id number] 05:31:00 Test Item Value Reference Range Comments CULTURE (BEAKER) (test daha=2272) No growth GRAM STAIN RESULT (BEAKER) (test <1+ WBCs oufx=6441) GRAM STAIN RESULT (BEAKER) (test No organisms seen ldvd=60400) ANAEROBIC [id number] 02:42:00 Test Item Value Reference Range Comments CULTURE (BEAKER) (test njhv=2231) No anaerobes isolated POCT-GLUCOSE [id number] 13:58:00 Test Item Value Reference Range Comments POC-GLUCOSE METER (BEAKER) 119 mg/dL 70-110 TESTED AT [facility] [address] [facility] (test dkiz=8931) [facility] [address] CBC W/PLT COUNT & AUTO [id number] 09:22:00 Test Item Value Reference Range Comments WHITE BLOOD CELL COUNT (BEAKER) (test ursh=764) 5.1 K/ L 3.5-10.5 RED BLOOD CELL COUNT (BEAKER) (test nyep=608) 2.79 M/ L 3.93-5.22 HEMOGLOBIN (BEAKER) (test wsyo=438) 8.8 GM/DL 11.2-15.7 HEMATOCRIT (BEAKER) (test epxx=995) 27.2 % 34.1-44.9 MEAN CORPUSCULAR VOLUME (BEAKER) (test mgjv=829) 97.5 fL 79.4-94.8 MEAN CORPUSCULAR HEMOGLOBIN (BEAKER) (test 31.5 pg 25.6-32.2 fbla=683) MEAN CORPUSCULAR HEMOGLOBIN CONC (BEAKER) (test 32.4 GM/DL 32.2-35.5 fzgz=406) RED CELL DISTRIBUTION WIDTH (BEAKER) (test 18.8 % 11.7-14.4 ihkm=001) PLATELET COUNT (BEAKER) (test lijh=937) 86 K/CU MM 150-450 MEAN PLATELET VOLUME (BEAKER) (test vvhx=185) 12.6 fL 9.4-12.3 NUCLEATED RED BLOOD CELLS (BEAKER) (test 0 /100 WBC 0-0 llqr=267) NEUTROPHILS RELATIVE PERCENT (BEAKER) (test 73 % ootw=218) LYMPHOCYTES RELATIVE PERCENT (BEAKER) (test 7 % fndi=906) MONOCYTES RELATIVE PERCENT (BEAKER) (test 12 % drti=629) EOSINOPHILS RELATIVE PERCENT (BEAKER) (test 6 % kwfm=379) BASOPHILS RELATIVE PERCENT (BEAKER) (test 1 % wpmo=572) NEUTROPHILS ABSOLUTE COUNT (BEAKER) (test 3.63 K/ L 1.56-6.13 ugxm=847) LYMPHOCYTES ABSOLUTE COUNT (BEAKER) (test 0.36 K/ L 1.18-3.74 dcsf=335) MONOCYTES ABSOLUTE COUNT (BEAKER) (test rbji=862) 0.61 K/ L 0.24-0.36 EOSINOPHILS ABSOLUTE COUNT (BEAKER) (test 0.31 K/ L 0.04-0.36 wtkd=437) BASOPHILS ABSOLUTE COUNT (BEAKER) (test hvqs=402) 0.06 K/ L 0.01-0.08 IMMATURE GRANULOCYTES-RELATIVE PERCENT (BEAKER) 0 % 0-1 (test remj=3025) CBC (HEMOGRAM ONLY)2018-02-15 09:16:00 Test Item Value Reference Range Comments WHITE BLOOD CELL COUNT (BEAKER) (test pvkw=636) 5.1 K/ L 3.5-10.5 RED BLOOD CELL COUNT (BEAKER) (test woay=184) 2.79 M/ L 3.93-5.22 HEMOGLOBIN (BEAKER) (test ocsy=448) 8.8 GM/DL 11.2-15.7 HEMATOCRIT (BEAKER) (test elvz=710) 27.2 % 34.1-44.9 MEAN CORPUSCULAR VOLUME (BEAKER) (test sskt=270) 97.5 fL 79.4-94.8 MEAN CORPUSCULAR HEMOGLOBIN (BEAKER) (test 31.5 pg 25.6-32.2 lgtv=945) MEAN CORPUSCULAR HEMOGLOBIN CONC (BEAKER) (test 32.4 GM/DL 32.2-35.5 kbci=680) RED CELL DISTRIBUTION WIDTH (BEAKER) (test 18.8 % 11.7-14.4 vpxo=157) PLATELET COUNT (BEAKER) (test kamj=693) 86 K/CU MM 150-450 MEAN PLATELET VOLUME (BEAKER) (test ddkq=845) 12.6 fL 9.4-12.3 NUCLEATED RED BLOOD CELLS (BEAKER) (test 0 /100 WBC 0-0 llyd=923) POCT-GLUCOSE [id number] 08:54:00 Test Item Value Reference Range Comments POC-GLUCOSE METER (BEAKER) 135 mg/dL 70-110 TESTED AT [facility] [address] [facility] (test vyxk=8670) [facility] [id number] [id number] 06:41:00 Test Item Value Reference Range Comments PHOSPHORUS (BEAKER) (test fual=550) 3.5 mg/dL 2.3-4.7 [id number] 06:41:00 Test Item Value Reference Range Comments MAGNESIUM (BEAKER) (test wcqb=256) 1.7 mg/dL 1.6-2.6 BASIC METABOLIC [id number] 06:41:00 Test Item Value Reference Range Comments SODIUM (BEAKER) (test 136 meq/L 136-145 qgeq=853) POTASSIUM (BEAKER) (test 3.2 meq/L 3.5-5.1 sedt=547) CHLORIDE (BEAKER) (test 112 meq/L 98-107 zszd=145) CO2 (BEAKER) (test 14 meq/L 22-29 ufyr=724) BLOOD UREA NITROGEN 14 mg/dL 7-21 (BEAKER) (test rozt=913) CREATININE (BEAKER) (test 0.71 mg/dL 0.57-1.25 lcfq=373) GLUCOSE RANDOM (BEAKER) 92 mg/dL 70-105 (test rlbv=471) CALCIUM (BEAKER) (test 8.9 mg/dL 8.4-10.2 csjb=086) EGFR (BEAKER) (test 88 mL/min/1.73 sq m ESTIMATED GFR IS NOT hcrw=2678) ACCURATE CREATININE CLEARANCE IN PREDICTING GLOMERULAR FILTRATION RATE. ESTIMATED GFR IS NOT APPLICABLE FOR DIALYSIS PATIENTS. HEPATIC FUNCTION [id number] 06:41:00 Test Item Value Reference Range Comments TOTAL PROTEIN (BEAKER) (test yifd=757) 6.3 gm/dL 6.0-8.3 ALBUMIN (BEAKER) (test qgbi=2430) 3.9 g/dL 3.5-5.0 BILIRUBIN TOTAL (BEAKER) (test anwd=625) 1.7 mg/dL 0.2-1.2 BILIRUBIN DIRECT (BEAKER) (test pvpj=919) 1.0 mg/dL 0.1-0.5 ALKALINE PHOSPHATASE (BEAKER) (test bmbg=178) 126 U/L 40-150 AST (SGOT) (BEAKER) (test fyii=977) 118 U/L 5-34 ALT (SGPT) (BEAKER) (test pquh=723) 56 U/L 6-55 BLOOD [id number] 06:00:00 Test Item Value Reference Range Comments CULTURE (BEAKER) (test uyea=3735) No growth in 5 days BLOOD [id number] 06:00:00 Test Item Value Reference Range Comments CULTURE (BEAKER) (test ikyx=9257) No growth in 5 days POCT-GLUCOSE [id number] 21:33:00 Test Item Value Reference Range Comments POC-GLUCOSE METER (BEAKER) 126 mg/dL 70-110 TESTED AT [facility] [address] [facility] (test moss=2849) [facility] [address] BODY FLUID CELL COUNT WITH [id number] 20:39:00 Test Item Value Reference Range Comments APPEARANCE FLUID (BEAKER) (test chsq=968) Bloody Clear COLOR FLUID (BEAKER) (test eykl=270) Red Colorless, Straw RBC FLUID (BEAKER) (test bsyz=601) [address] /cu mm <=1 ADJUSTED WBC FLUID (BEAKER) (test agfh=4119) 206 /cu mm <=5 LINING CELLS (BEAKER) (test dluc=1589) 4 /cu mm <=1 NEUTROPHILS FLUID (BEAKER) (test fbph=0246) 50 % LYMPHS FLUID (BEAKER) (test dsbe=520) 5 % MONO/MACROPHAGE FLUID (BEAKER) (test yhya=775) 45 % EOSINOPHILS FLUID (BEAKER) (test amwq=410) 0 % BASO FLUID (BEAKER) (test xlqt=442) 0 % CONTAINER BODY FLUID (BEAKER) (test lyme=7087) EDTA Tube TISSUE [id number] 18:33:00Surgical Pathology Report Case: [id number] Authorizing Provider: Tamera Mayorga MD Collected: 02/11/2018 1338 Ordering Location: [place] [address] ICU Received: 02/11/2018 1613 Pathologist: Herminia Hope MD Specimen: Hernia Sac, Umbilical SKIN AND HERNIA SAC, EXCISION:- SKIN WITH ULCER, NECROSIS, HERNIA WITH FIBROSIS, ADHESION AND CHRONIC INFLAMMATION Signing Pathologist Direct Phone Line: [phone] umbilical hernia Hernia sac umbilical The specimen is received in a formalin-filled container labeled with the patient's information and labeled "umbilical hernial sac" and consists of hemorrhagic membranous tissue measuring 6 x 3 x 0.2 cm with overlying brown skin measuring 5.5 x 3 x 0.3 cm, submitted in A1 and A2. There are no areas of suspicion. CG/ew PerformedPOCT-GLUCOSE [id number] 18:27:00 Test Item Value Reference Range Comments POC-GLUCOSE METER (BEAKER) 152 mg/dL 70-110 TESTED AT [address] (test rpzl=1578) [facility] [address] U/S, [id number] 17:34:00Send fluid for cell ct \\T\\ diff, [...] 02/14/2018 17:34:56 Reading Location: [facility] B1 [id number] Ultrasound Reading Room [id number] 15:56:00 Test Item Value Reference Range Comments PARTIAL THROMBOPLASTIN TIME (BEAKER) (test 28.9 seconds 22.5-36.0 xzde=689) PROTHROMBIN [id number] 15:55:00 Test Item Value Reference Range Comments PROTIME (BEAKER) (test tlmg=020) 18.3 seconds 11.7-14.7 INR (BEAKER) (test kpft=812) 1.5 <=5.9 RECOMMENDED COUMADIN/WARFARIN INR THERAPY RANGESSTANDARD DOSE: 2.0 - 3.0 Includes: PROPHYLAXIS forvenous thrombosis, systemic embolization; TREATMENT for venous thrombosis and/or pulmonary embolus.HIGH RISK: Target INR is 2.5-3.5 for patients with mechanical heart valves.CBC W/PLT COUNT & AUTO [id number] 15:49:00 Test Item Value Reference Range Comments WHITE BLOOD CELL COUNT (BEAKER) (test tonk=169) 6.5 K/ L 3.5-10.5 RED BLOOD CELL COUNT (BEAKER) (test gixo=785) 2.69 M/ L 3.93-5.22 HEMOGLOBIN (BEAKER) (test befe=046) 8.5 GM/DL 11.2-15.7 HEMATOCRIT (BEAKER) (test hihq=377) 25.9 % 34.1-44.9 MEAN CORPUSCULAR VOLUME (BEAKER) (test athn=160) 96.3 fL 79.4-94.8 MEAN CORPUSCULAR HEMOGLOBIN (BEAKER) (test 31.6 pg 25.6-32.2 ucxo=671) MEAN CORPUSCULAR HEMOGLOBIN CONC (BEAKER) (test 32.8 GM/DL 32.2-35.5 iviz=992) RED CELL DISTRIBUTION WIDTH (BEAKER) (test 19.0 % 11.7-14.4 iuqf=073) PLATELET COUNT (BEAKER) (test xtlu=792) 63 K/CU MM 150-450 MEAN PLATELET VOLUME (BEAKER) (test wmlo=254) 11.6 fL 9.4-12.3 NUCLEATED RED BLOOD CELLS (BEAKER) (test 0 /100 WBC 0-0 poyf=680) NEUTROPHILS RELATIVE PERCENT (BEAKER) (test 82 % ogkg=634) LYMPHOCYTES RELATIVE PERCENT (BEAKER) (test 4 % ekgc=465) MONOCYTES RELATIVE PERCENT (BEAKER) (test 9 % dwsf=553) EOSINOPHILS RELATIVE PERCENT (BEAKER) (test 3 % dhva=878) BASOPHILS RELATIVE PERCENT (BEAKER) (test 1 % axnw=113) NEUTROPHILS ABSOLUTE COUNT (BEAKER) (test 5.30 K/ L 1.56-6.13 rdbg=928) LYMPHOCYTES ABSOLUTE COUNT (BEAKER) (test 0.26 K/ L 1.18-3.74 jofd=235) MONOCYTES ABSOLUTE COUNT (BEAKER) (test vvlt=393) 0.59 K/ L 0.24-0.36 EOSINOPHILS ABSOLUTE COUNT (BEAKER) (test 0.20 K/ L 0.04-0.36 pifq=697) BASOPHILS ABSOLUTE COUNT (BEAKER) (test dygz=693) 0.06 K/ L 0.01-0.08 IMMATURE GRANULOCYTES-RELATIVE PERCENT (BEAKER) 1 % 0-1 (test afnz=9331) POCT-GLUCOSE [id number] 13:10:00 Test Item Value Reference Range Comments POC-GLUCOSE METER (BEAKER) 138 mg/dL 70-110 TESTED AT [address] (test oenv=8932) [facility] [address] SURGICALLY OBTAINED CULTURE + GRAM [id number] 11:29:00 Test Item Value Reference Range Comments CULTURE (BEAKER) (test vtdy=3380) No growth GRAM STAIN RESULT (BEAKER) (test <1+ WBCs bnjx=2629) GRAM STAIN RESULT (BEAKER) (test No organisms seen fldc=33748) CBC W/PLT COUNT & AUTO [id number] 09:31:00 Test Item Value Reference Range Comments WHITE BLOOD CELL COUNT (BEAKER) (test hcha=079) 5.3 K/ L 3.5-10.5 RED BLOOD CELL COUNT (BEAKER) (test nhql=108) 2.76 M/ L 3.93-5.22 HEMOGLOBIN (BEAKER) (test jkoi=346) 8.5 GM/DL 11.2-15.7 HEMATOCRIT (BEAKER) (test buii=742) 26.7 % 34.1-44.9 MEAN CORPUSCULAR VOLUME (BEAKER) (test tqtj=044) 96.7 fL 79.4-94.8 MEAN CORPUSCULAR HEMOGLOBIN (BEAKER) (test 30.8 pg 25.6-32.2 akbx=193) MEAN CORPUSCULAR HEMOGLOBIN CONC (BEAKER) (test 31.8 GM/DL 32.2-35.5 agqv=182) RED CELL DISTRIBUTION WIDTH (BEAKER) (test 19.1 % 11.7-14.4 jgkf=803) PLATELET COUNT (BEAKER) (test hhlk=174) 82 K/CU MM 150-450 MEAN PLATELET VOLUME (BEAKER) (test zyxo=811) 11.5 fL 9.4-12.3 NUCLEATED RED BLOOD CELLS (BEAKER) (test 0 /100 WBC 0-0 vdqh=058) NEUTROPHILS RELATIVE PERCENT (BEAKER) (test 79 % fgoh=987) LYMPHOCYTES RELATIVE PERCENT (BEAKER) (test 6 % rooq=417) MONOCYTES RELATIVE PERCENT (BEAKER) (test 10 % ljwp=708) EOSINOPHILS RELATIVE PERCENT (BEAKER) (test 3 % gtpi=438) BASOPHILS RELATIVE PERCENT (BEAKER) (test 1 % jset=780) NEUTROPHILS ABSOLUTE COUNT (BEAKER) (test 4.21 K/ L 1.56-6.13 quxt=931) LYMPHOCYTES ABSOLUTE COUNT (BEAKER) (test 0.33 K/ L 1.18-3.74 qghr=431) MONOCYTES ABSOLUTE COUNT (BEAKER) (test zgbw=999) 0.55 K/ L 0.24-0.36 EOSINOPHILS ABSOLUTE COUNT (BEAKER) (test 0.17 K/ L 0.04-0.36 mdoj=095) BASOPHILS ABSOLUTE COUNT (BEAKER) (test ucgp=265) 0.05 K/ L 0.01-0.08 IMMATURE GRANULOCYTES-RELATIVE PERCENT (BEAKER) 1 % 0-1 (test iwjr=2791) POCT-GLUCOSE [id number] 08:00:00 Test Item Value Reference Range Comments POC-GLUCOSE METER (BEAKER) 100 mg/dL 70-110 TESTED AT [facility] [address] [facility] (test pvzx=5818) [facility] [address] [id number] 07:25:00 Test Item Value Reference Range Comments PHOSPHORUS (BEAKER) (test qerl=933) 3.0 mg/dL 2.3-4.7 [id number] 07:25:00 Test Item Value Reference Range Comments MAGNESIUM (BEAKER) (test kozj=509) 2.0 mg/dL 1.6-2.6 HEPATIC FUNCTION [id number] 07:25:00 Test Item Value Reference Range Comments TOTAL PROTEIN (BEAKER) (test rtbr=650) 6.5 gm/dL 6.0-8.3 ALBUMIN (BEAKER) (test zsyp=6600) 4.2 g/dL 3.5-5.0 BILIRUBIN TOTAL (BEAKER) (test blbu=277) 1.7 mg/dL 0.2-1.2 BILIRUBIN DIRECT (BEAKER) (test qrwt=093) 1.1 mg/dL 0.1-0.5 ALKALINE PHOSPHATASE (BEAKER) (test vkme=155) 140 U/L 40-150 AST (SGOT) (BEAKER) (test sfru=477) 182 U/L 5-34 ALT (SGPT) (BEAKER) (test llwu=304) 58 U/L 6-55 POCT-GLUCOSE [id number] 23:06:00 Test Item Value Reference Range Comments POC-GLUCOSE METER (BEAKER) 106 mg/dL 70-110 TESTED AT [address] (test zmmk=4178) [facility] [address] POCT-GLUCOSE [id number] 17:34:00 Test Item Value Reference Range Comments POC-GLUCOSE METER (BEAKER) 149 mg/dL 70-110 TESTED AT [address] (test etlz=5883) [facility] [address] POCT-GLUCOSE [id number] 11:39:00 Test Item Value Reference Range Comments POC-GLUCOSE METER (BEAKER) 117 mg/dL 70-110 TESTED AT [address] (test rjyd=6846) [facility] [address] POCT-GLUCOSE [id number] 08:13:00 Test Item Value Reference Range Comments POC-GLUCOSE METER (BEAKER) 126 mg/dL 70-110 TESTED AT [address] (test dffj=4273) [facility] [address] [id number] 06:41:00 Test Item Value Reference Range Comments PHOSPHORUS (BEAKER) (test nffh=905) 2.1 mg/dL 2.3-4.7 [id number] 06:41:00 Test Item Value Reference Range Comments MAGNESIUM (BEAKER) (test tqic=344) 2.1 mg/dL 1.6-2.6 HEPATIC FUNCTION [id number] 06:41:00 Test Item Value Reference Range Comments TOTAL PROTEIN (BEAKER) (test odwc=235) 6.6 gm/dL 6.0-8.3 ALBUMIN (BEAKER) (test cuin=1957) 4.5 g/dL 3.5-5.0 BILIRUBIN TOTAL (BEAKER) (test ezkv=659) 1.0 mg/dL 0.2-1.2 BILIRUBIN DIRECT (BEAKER) (test zdzi=574) 0.6 mg/dL 0.1-0.5 ALKALINE PHOSPHATASE (BEAKER) (test crwu=489) 56 U/L 40-150 AST (SGOT) (BEAKER) (test woog=247) 51 U/L 5-34 ALT (SGPT) (BEAKER) (test ucrr=475) 17 U/L 6-55 COMPREHENSIVE METABOLIC [id number] 06:41:00 Test Item Value Reference Range Comments TOTAL PROTEIN (BEAKER) 6.6 gm/dL 6.0-8.3 (test aujv=262) ALBUMIN (BEAKER) (test 4.5 g/dL 3.5-5.0 owih=4096) ALKALINE PHOSPHATASE 56 U/L 40-150 (BEAKER) (test pmdd=685) BILIRUBIN TOTAL (BEAKER) 1.0 mg/dL 0.2-1.2 (test ifos=761) SODIUM (BEAKER) (test 138 meq/L 136-145 cubb=940) POTASSIUM (BEAKER) (test 3.3 meq/L 3.5-5.1 kuri=542) CHLORIDE (BEAKER) (test 114 meq/L 98-107 brpw=512) CO2 (BEAKER) (test 15 meq/L 22-29 phvi=020) BLOOD UREA NITROGEN 15 mg/dL 7-21 (BEAKER) (test xflb=521) CREATININE (BEAKER) (test 0.83 mg/dL 0.57-1.25 qxui=128) GLUCOSE RANDOM (BEAKER) 108 mg/dL 70-105 (test uhns=325) CALCIUM (BEAKER) (test 9.0 mg/dL 8.4-10.2 drrn=636) AST (SGOT) (BEAKER) (test 51 U/L 5-34 myms=341) ALT (SGPT) (BEAKER) (test 17 U/L 6-55 hpxa=128) EGFR (BEAKER) (test 73 mL/min/1.73 sq m ESTIMATED GFR IS NOT wfhl=2228) ACCURATE CREATININE CLEARANCE IN PREDICTING GLOMERULAR FILTRATION RATE. ESTIMATED GFR IS NOT APPLICABLE FOR DIALYSIS PATIENTS. CBC W/PLT COUNT & AUTO [id number] 06:25:00 Test Item Value Reference Range Comments WHITE BLOOD CELL COUNT (BEAKER) (test ekki=306) 6.7 K/ L 3.5-10.5 RED BLOOD CELL COUNT (BEAKER) (test pcne=524) 2.17 M/ L 3.93-5.22 HEMOGLOBIN (BEAKER) (test zgzw=336) 6.8 GM/DL 11.2-15.7 HEMATOCRIT (BEAKER) (test rtms=730) 21.8 % 34.1-44.9 MEAN CORPUSCULAR VOLUME (BEAKER) (test fpnh=870) 100.5 fL 79.4-94.8 MEAN CORPUSCULAR HEMOGLOBIN (BEAKER) (test 31.3 pg 25.6-32.2 lzdh=681) MEAN CORPUSCULAR HEMOGLOBIN CONC (BEAKER) (test 31.2 GM/DL 32.2-35.5 hqna=014) RED CELL DISTRIBUTION WIDTH (BEAKER) (test 19.9 % 11.7-14.4 sjue=956) PLATELET COUNT (BEAKER) (test kxxp=718) 84 K/CU MM 150-450 MEAN PLATELET VOLUME (BEAKER) (test vtpe=228) 11.1 fL 9.4-12.3 NUCLEATED RED BLOOD CELLS (BEAKER) (test 0 /100 WBC 0-0 yfir=041) NEUTROPHILS RELATIVE PERCENT (BEAKER) (test 84 % kpso=412) LYMPHOCYTES RELATIVE PERCENT (BEAKER) (test 4 % zijo=538) MONOCYTES RELATIVE PERCENT (BEAKER) (test 12 % plyb=773) EOSINOPHILS RELATIVE PERCENT (BEAKER) (test 0 % vhwz=703) BASOPHILS RELATIVE PERCENT (BEAKER) (test 0 % xyrs=074) NEUTROPHILS ABSOLUTE COUNT (BEAKER) (test 5.59 K/ L 1.56-6.13 btxk=222) LYMPHOCYTES ABSOLUTE COUNT (BEAKER) (test 0.25 K/ L 1.18-3.74 dhyj=539) MONOCYTES ABSOLUTE COUNT (BEAKER) (test lfmy=687) 0.77 K/ L 0.24-0.36 EOSINOPHILS ABSOLUTE COUNT (BEAKER) (test 0.02 K/ L 0.04-0.36 ddkp=432) BASOPHILS ABSOLUTE COUNT (BEAKER) (test vraa=199) 0.00 K/ L 0.01-0.08 IMMATURE GRANULOCYTES-RELATIVE PERCENT (BEAKER) 1 % 0-1 (test cahs=1771) SPIN/CONCENTRATION [id number] 15:23:00 Test Item Value Reference Range Comments CONCENTRATION CHARGED (BEAKER) (test glpo=5667) Done POCT-GLUCOSE [id number] 08:15:00 Test Item Value Reference Range Comments POC-GLUCOSE METER (BEAKER) 147 mg/dL 70-110 TESTED AT [facility] [address] [facility] (test dlqh=9746) [facility] [address] HIV-1 ANTIGEN WITH HIV-1/2 [id number] 06:57:00 Test Item Value Reference Range Comments HIV-1 ANTIGEN WITH HIV 1\\T\\2 ANTIBODY (2) Nonreactive Nonreactive (BEAKER) (test qdmo=4987) [id number] 06:35:00 Test Item Value Reference Range Comments PHOSPHORUS (BEAKER) (test tltz=631) 2.8 mg/dL 2.3-4.7 [id number] 06:35:00 Test Item Value Reference Range Comments MAGNESIUM (BEAKER) (test shnb=194) 1.9 mg/dL 1.6-2.6 BASIC METABOLIC [id number] 06:35:00 Test Item Value Reference Range Comments SODIUM (BEAKER) (test 133 meq/L 136-145 yumn=526) POTASSIUM (BEAKER) (test 3.9 meq/L 3.5-5.1 cros=486) CHLORIDE (BEAKER) (test 111 meq/L 98-107 pctf=742) CO2 (BEAKER) (test 13 meq/L 22-29 razx=778) BLOOD UREA NITROGEN 18 mg/dL 7-21 (BEAKER) (test uyur=253) CREATININE (BEAKER) (test 0.86 mg/dL 0.57-1.25 hrty=105) GLUCOSE RANDOM (BEAKER) 142 mg/dL 70-105 (test vsmo=139) CALCIUM (BEAKER) (test 8.7 mg/dL 8.4-10.2 hqlo=959) EGFR (BEAKER) (test 70 mL/min/1.73 sq m ESTIMATED GFR IS NOT oepo=3571) ACCURATE CREATININE CLEARANCE IN PREDICTING GLOMERULAR FILTRATION RATE. ESTIMATED GFR IS NOT APPLICABLE FOR DIALYSIS PATIENTS. HEPATIC FUNCTION [id number] 06:35:00 Test Item Value Reference Range Comments TOTAL PROTEIN (BEAKER) (test mzuy=957) 6.4 gm/dL 6.0-8.3 ALBUMIN (BEAKER) (test vsal=7762) 4.0 g/dL 3.5-5.0 BILIRUBIN TOTAL (BEAKER) (test zofh=158) 1.5 mg/dL 0.2-1.2 BILIRUBIN DIRECT (BEAKER) (test nvvj=558) 0.9 mg/dL 0.1-0.5 ALKALINE PHOSPHATASE (BEAKER) (test drhr=012) 46 U/L 40-150 AST (SGOT) (BEAKER) (test yvrl=187) 32 U/L 5-34 ALT (SGPT) (BEAKER) (test bsej=510) 12 U/L 6-55 CBC W/PLT COUNT & AUTO [id number] 06:26:00 Test Item Value Reference Range Comments WHITE BLOOD CELL COUNT (BEAKER) (test rglp=464) 6.4 K/ L 3.5-10.5 RED BLOOD CELL COUNT (BEAKER) (test osql=434) 2.47 M/ L 3.93-5.22 HEMOGLOBIN (BEAKER) (test vyvb=927) 7.5 GM/DL 11.2-15.7 HEMATOCRIT (BEAKER) (test bxkx=321) 24.3 % 34.1-44.9 MEAN CORPUSCULAR VOLUME (BEAKER) (test sxxk=267) 98.4 fL 79.4-94.8 MEAN CORPUSCULAR HEMOGLOBIN (BEAKER) (test 30.4 pg 25.6-32.2 utle=153) MEAN CORPUSCULAR HEMOGLOBIN CONC (BEAKER) (test 30.9 GM/DL 32.2-35.5 lcfc=543) RED CELL DISTRIBUTION WIDTH (BEAKER) (test 20.0 % 11.7-14.4 zeeq=972) PLATELET COUNT (BEAKER) (test ohop=050) 85 K/CU MM 150-450 MEAN PLATELET VOLUME (BEAKER) (test bqqj=158) 11.3 fL 9.4-12.3 NUCLEATED RED BLOOD CELLS (BEAKER) (test 0 /100 WBC 0-0 ofhl=028) NEUTROPHILS RELATIVE PERCENT (BEAKER) (test 92 % xtem=519) LYMPHOCYTES RELATIVE PERCENT (BEAKER) (test 3 % csce=114) MONOCYTES RELATIVE PERCENT (BEAKER) (test 5 % dols=571) EOSINOPHILS RELATIVE PERCENT (BEAKER) (test 0 % mxiw=241) BASOPHILS RELATIVE PERCENT (BEAKER) (test 0 % qqoh=315) NEUTROPHILS ABSOLUTE COUNT (BEAKER) (test 5.89 K/ L 1.56-6.13 wxam=629) LYMPHOCYTES ABSOLUTE COUNT (BEAKER) (test 0.19 K/ L 1.18-3.74 hjzy=153) MONOCYTES ABSOLUTE COUNT (BEAKER) (test nppd=561) 0.31 K/ L 0.24-0.36 EOSINOPHILS ABSOLUTE COUNT (BEAKER) (test 0.00 K/ L 0.04-0.36 otie=897) BASOPHILS ABSOLUTE COUNT (BEAKER) (test iidw=381) 0.00 K/ L 0.01-0.08 IMMATURE GRANULOCYTES-RELATIVE PERCENT (BEAKER) 1 % 0-1 (test rkeo=6436) POCT-GLUCOSE [id number] 00:47:00 Test Item Value Reference Range Comments POC-GLUCOSE METER (BEAKER) 220 mg/dL 70-110 TESTED AT [address] (test gxzo=6388) [facility] [address] [id number] 19:57:00 Test Item Value Reference Range Comments PHOSPHORUS (BEAKER) (test ldti=549) 2.9 mg/dL 2.3-4.7 [id number] 19:57:00 Test Item Value Reference Range Comments MAGNESIUM (BEAKER) (test ivap=875) 1.7 mg/dL 1.6-2.6 [id number] 16:27:00 Test Item Value Reference Range Comments PROTIME (BEAKER) (test ioud=816) 18.7 seconds 11.7-14.7 INR (BEAKER) (test hccl=102) 1.6 <=5.9 PARTIAL THROMBOPLASTIN TIME (BEAKER) (test 36.5 seconds 22.5-36.0 mmwb=155) RECOMMENDED COUMADIN/WARFARIN INR THERAPY RANGESSTANDARD DOSE: 2.0 - 3.0 Includes: PROPHYLAXIS forvenous thrombosis, systemic embolization; TREATMENT for venous thrombosis and/or pulmonary embolus.HIGH RISK: Target INR is 2.5-3.5 for patients with mechanical heart valves.BASIC METABOLIC [id number] 16:24: 00 Test Item Value Reference Range Comments SODIUM (BEAKER) (test 136 meq/L 136-145 hsgl=843) POTASSIUM (BEAKER) (test 3.7 meq/L 3.5-5.1 jpcn=994) CHLORIDE (BEAKER) (test 113 meq/L 98-107 jfwo=721) CO2 (BEAKER) (test 16 meq/L 22-29 yasm=445) BLOOD UREA NITROGEN 20 mg/dL 7-21 (BEAKER) (test mdnz=241) CREATININE (BEAKER) (test 1.03 mg/dL 0.57-1.25 zumb=119) GLUCOSE RANDOM (BEAKER) 133 mg/dL 70-105 (test bniu=817) CALCIUM (BEAKER) (test 8.2 mg/dL 8.4-10.2 gwpe=223) EGFR (BEAKER) (test 57 mL/min/1.73 sq m ESTIMATED GFR IS NOT tojg=0874) ACCURATE CREATININE CLEARANCE IN PREDICTING GLOMERULAR FILTRATION RATE. ESTIMATED GFR IS NOT APPLICABLE FOR DIALYSIS PATIENTS. CBC W/PLT COUNT & AUTO [id number] 16:00:00 Test Item Value Reference Range Comments WHITE BLOOD CELL COUNT (BEAKER) (test yfsv=909) 4.6 K/ L 3.5-10.5 RED BLOOD CELL COUNT (BEAKER) (test oeev=248) 2.57 M/ L 3.93-5.22 HEMOGLOBIN (BEAKER) (test gtnh=345) 7.9 GM/DL 11.2-15.7 HEMATOCRIT (BEAKER) (test epfu=338) 24.9 % 34.1-44.9 MEAN CORPUSCULAR VOLUME (BEAKER) (test lsrr=067) 96.9 fL 79.4-94.8 MEAN CORPUSCULAR HEMOGLOBIN (BEAKER) (test 30.7 pg 25.6-32.2 aczb=732) MEAN CORPUSCULAR HEMOGLOBIN CONC (BEAKER) (test 31.7 GM/DL 32.2-35.5 alhw=209) RED CELL DISTRIBUTION WIDTH (BEAKER) (test 20.0 % 11.7-14.4 ogzd=198) PLATELET COUNT (BEAKER) (test qzfj=374) 101 K/CU MM 150-450 MEAN PLATELET VOLUME (BEAKER) (test xmpt=881) 10.5 fL 9.4-12.3 NUCLEATED RED BLOOD CELLS (BEAKER) (test 0 /100 WBC 0-0 rlmi=542) NEUTROPHILS RELATIVE PERCENT (BEAKER) (test 94 % segw=119) LYMPHOCYTES RELATIVE PERCENT (BEAKER) (test 3 % ftiy=020) MONOCYTES RELATIVE PERCENT (BEAKER) (test 2 % qzrd=282) EOSINOPHILS RELATIVE PERCENT (BEAKER) (test 1 % ctxg=346) BASOPHILS RELATIVE PERCENT (BEAKER) (test 1 % mpwa=100) NEUTROPHILS ABSOLUTE COUNT (BEAKER) (test 4.31 K/ L 1.56-6.13 yrqy=271) LYMPHOCYTES ABSOLUTE COUNT (BEAKER) (test 0.12 K/ L 1.18-3.74 lldk=614) MONOCYTES ABSOLUTE COUNT (BEAKER) (test 0.10 K/ L 0.24-0.36 awce=534) EOSINOPHILS ABSOLUTE COUNT (BEAKER) (test 0.03 K/ L 0.04-0.36 wsfd=038) BASOPHILS ABSOLUTE COUNT (BEAKER) (test 0.03 K/ L 0.01-0.08 qdjr=981) IMMATURE GRANULOCYTES-RELATIVE PERCENT (BEAKER) 0 % 0-1 (test zhmk=2555) HGB/HCT (H&H) - STAT [id number] 13:33:00 Test Item Value Reference Range Comments HEMOGLOBIN (BEAKER) (test anmn=035) 8.7 g/dL 12.0-15.0 HEMATOCRIT (BEAKER) (test ncmk=060) 26.0 % 36.0-45.0 THIS IS A VENOUS SAMPLECALCIUM, [id number] 13:33:00 Test Item Value Reference Range Comments CALCIUM IONIZED (BEAKER) (test zheo=272) 1.07 mmol/L 1.12-1.27 PH, BLOOD (BEAKER) (test fxnz=5641) 7.28 GLUCOSE-STAT [id number] 13:33:00 Test Item Value Reference Range Comments GLUCOSE RANDOM (BEAKER) (test gonr=271) 122 mg/dL 70-110 THIS IS A VENOUS SAMPLETHIS IS A VENOUS SAMPLETHIS IS A VENOUS SAMPLESODIUM NA- STAT [id number] 13:32:00 Test Item Value Reference Range Comments SODIUM (BEAKER) (test xqdb=098) 135 meq/L 135-148 THIS IS A VENOUS SAMPLETHIS IS A VENOUS SAMPLETHIS IS A VENOUS SAMPLEPOTASSIUM- STAT [id number] 13:32:00 Test Item Value Reference Range Comments POTASSIUM (BEAKER) (test mtjk=166) 3.9 meq/L 3.6-5.5 THIS IS A VENOUS SAMPLETHIS IS A VENOUS SAMPLETHIS IS A VENOUS SAMPLEU/S, ABDOMINAL, [id number] 09:32:00Reason for exam:->ascites, acute renal failure, hydronephrosisShould [...] MDReport Verified Date/Time: 02/11/2018 09:32:36 Reading Location: [address] Ultrasound Reading Room Electronically signed by: BELA RIOS M.D. on 05/2018 09:32 AMPOCT-GLUCOSE [id number] 08:05:00 Test Item Value Reference Range Comments POC-GLUCOSE METER (BEAKER) 117 mg/dL 70-110 TESTED AT [facility] [address] [facility] (test iybg=9397) [facility] [address] COMPREHENSIVE METABOLIC [id number] 07:53:00 Test Item Value Reference Range Comments TOTAL PROTEIN (BEAKER) 6.1 gm/dL 6.0-8.3 (test focv=671) ALBUMIN (BEAKER) (test 3.2 g/dL 3.5-5.0 cbaj=9297) ALKALINE PHOSPHATASE 58 U/L 40-150 (BEAKER) (test veyc=590) BILIRUBIN TOTAL (BEAKER) 1.6 mg/dL 0.2-1.2 (test kzkt=030) SODIUM (BEAKER) (test 135 meq/L 136-145 turx=784) POTASSIUM (BEAKER) (test 3.5 meq/L 3.5-5.1 xfin=554) CHLORIDE (BEAKER) (test 111 meq/L 98-107 juce=900) CO2 (BEAKER) (test 17 meq/L 22-29 cisi=936) BLOOD UREA NITROGEN 25 mg/dL 7-21 (BEAKER) (test jcos=804) CREATININE (BEAKER) (test 1.29 mg/dL 0.57-1.25 deqd=748) GLUCOSE RANDOM (BEAKER) 110 mg/dL 70-105 (test kvej=139) CALCIUM (BEAKER) (test 8.5 mg/dL 8.4-10.2 vblj=989) AST (SGOT) (BEAKER) (test 39 U/L 5-34 yhkm=387) ALT (SGPT) (BEAKER) (test 13 U/L 6-55 vhak=374) EGFR (BEAKER) (test 44 mL/min/1.73 sq m ESTIMATED GFR IS NOT wqha=7530) ACCURATE CREATININE CLEARANCE IN PREDICTING GLOMERULAR FILTRATION RATE. ESTIMATED GFR IS NOT APPLICABLE FOR DIALYSIS PATIENTS. CT, [id number] 07:50:00FINAL REPORT HISTORY : Hernia, complicated Technique: [...] Verified Date/ Time: 02/11/2018 07:50:19 Reading Location: [facility] Diagnostic Imaging Reading Room - [place] [id number] Electronically signed by: JESSE HATHAWAY M.D. on 2017 07:50 [id number] 07:06:00 Test Item Value Reference Range Comments PROTIME (BEAKER) (test jetv=566) 17.3 seconds 11.7-14.7 INR (BEAKER) (test nuyh=601) 1.4 <=5.9 PARTIAL THROMBOPLASTIN TIME (BEAKER) (test 34.7 seconds 22.5-36.0 rwxq=503) RECOMMENDED COUMADIN/WARFARIN INR THERAPY RANGESSTANDARD DOSE: 2.0 - 3.0 Includes: PROPHYLAXIS forvenous thrombosis, systemic embolization; TREATMENT for venous thrombosis and/or pulmonary embolus.HIGH RISK: Target INR is 2.5-3.5 for patients with mechanical heart valves.CBC W/PLT COUNT & AUTO [id number] 06:22:00 Test Item Value Reference Range Comments WHITE BLOOD CELL COUNT (BEAKER) (test fldh=765) 4.1 K/ L 3.5-10.5 RED BLOOD CELL COUNT (BEAKER) (test uucc=427) 2.36 M/ L 3.93-5.22 HEMOGLOBIN (BEAKER) (test phzd=326) 7.5 GM/DL 11.2-15.7 HEMATOCRIT (BEAKER) (test kmzr=383) 22.9 % 34.1-44.9 MEAN CORPUSCULAR VOLUME (BEAKER) (test pnxx=927) 97.0 fL 79.4-94.8 MEAN CORPUSCULAR HEMOGLOBIN (BEAKER) (test 31.8 pg 25.6-32.2 lrjn=164) MEAN CORPUSCULAR HEMOGLOBIN CONC (BEAKER) (test 32.8 GM/DL 32.2-35.5 djwp=421) RED CELL DISTRIBUTION WIDTH (BEAKER) (test 21.1 % 11.7-14.4 vpai=155) PLATELET COUNT (BEAKER) (test kvcs=086) 131 K/CU MM 150-450 MEAN PLATELET VOLUME (BEAKER) (test nbjj=888) 11.0 fL 9.4-12.3 NUCLEATED RED BLOOD CELLS (BEAKER) (test 0 /100 WBC 0-0 tbhp=121) NEUTROPHILS RELATIVE PERCENT (BEAKER) (test 69 % sjum=752) LYMPHOCYTES RELATIVE PERCENT (BEAKER) (test 11 % bxnh=439) MONOCYTES RELATIVE PERCENT (BEAKER) (test 15 % pzje=366) EOSINOPHILS RELATIVE PERCENT (BEAKER) (test 4 % vemu=492) BASOPHILS RELATIVE PERCENT (BEAKER) (test 1 % fewv=043) NEUTROPHILS ABSOLUTE COUNT (BEAKER) (test 2.82 K/ L 1.56-6.13 wrwa=609) LYMPHOCYTES ABSOLUTE COUNT (BEAKER) (test 0.43 K/ L 1.18-3.74 ynzo=346) MONOCYTES ABSOLUTE COUNT (BEAKER) (test 0.60 K/ L 0.24-0.36 nfhf=746) EOSINOPHILS ABSOLUTE COUNT (BEAKER) (test 0.17 K/ L 0.04-0.36 sucq=920) BASOPHILS ABSOLUTE COUNT (BEAKER) (test 0.03 K/ L 0.01-0.08 lcyo=599) IMMATURE GRANULOCYTES-RELATIVE PERCENT (BEAKER) 1 % 0-1 (test pgei=5728) POCT-GLUCOSE [id number] 00:49:00 Test Item Value Reference Range Comments POC-GLUCOSE METER (BEAKER) 95 mg/dL 70-110 TESTED AT [facility] [address] [facility] (test zlyp=2141) [facility] [address] [id number] 21:49:00 Test Item Value Reference Range Comments POTASSIUM (BEAKER) (test 3.9 meq/L 3.5-5.1 Specimen moderately hemolyzed jnyj=005) SODIUM, RANDOM [id number] 19:06:00 Test Item Value Reference Range Comments SODIUM URINE (BEAKER) (test wsmx=147) < meq/L Reference Range: No NormalsCREATININE, RANDOM [id number] 19:02:00 Test Item Value Reference Range Comments CREATININE URINE (BEAKER) (test wjlm=656) 160.3 mg/dL Reference Range: No NormalsPROTEIN, RANDOM [id number] 19:02:00 Test Item Value Reference Range Comments PROTEIN, URINE (BEAKER) (test ordw=1604) 19 mg/dL 0-14 SCREEN, [id number] 18:47:00 Test Item Value Reference Range Comments TEST URINE (BEAKER) (test igmm=119) Negative POCT-GLUCOSE [id number] 18:08:00 Test Item Value Reference Range Comments POC-GLUCOSE METER (BEAKER) 183 mg/dL 70-110 TESTED AT [address] (test aswd=9554) [facility] [address] [id number] 13:33:00 Test Item Value Reference Range Comments POTASSIUM (BEAKER) (test nzjg=122) 3.2 meq/L 3.5-5.1 CBC (HEMOGRAM ONLY)[id number] 13:20:00 Test Item Value Reference Range Comments WHITE BLOOD CELL COUNT 4.6 K/ L 3.5-10.5 (BEAKER) (test decv=167) RED BLOOD CELL COUNT (BEAKER) 2.47 M/ L 3.93-5.22 (test vypy=522) HEMOGLOBIN (BEAKER) (test 7.6 GM/DL 11.2-15.7 ghan=890) HEMATOCRIT (BEAKER) (test 23.0 % 34.1-44.9 xyqp=671) MEAN CORPUSCULAR VOLUME 93.1 fL 79.4-94.8 Discordant from previous (BEAKER) (test ttyb=088) results. Clinical correlation suggested. MEAN CORPUSCULAR HEMOGLOBIN 30.8 pg 25.6-32.2 (BEAKER) (test cwlu=208) MEAN CORPUSCULAR HEMOGLOBIN 33.0 GM/DL 32.2-35.5 CONC (BEAKER) (test pzko=214) RED CELL DISTRIBUTION WIDTH 20.5 % 11.7-14.4 (BEAKER) (test lpdc=411) PLATELET COUNT (BEAKER) (test 111 K/CU MM 150-450 ypfb=088) MEAN PLATELET VOLUME (BEAKER) 11.2 fL 9.4-12.3 (test omvw=459) NUCLEATED RED BLOOD CELLS 0 /100 WBC 0-0 (BEAKER) (test ltma=518) POCT-GLUCOSE [id number] 11:51:00 Test Item Value Reference Range Comments POC-GLUCOSE METER (BEAKER) 123 mg/dL 70-110 TESTED AT [place] [id number] [facility] (test pqgj=0828) [facility] [address] POCT-GLUCOSE [id number] 06:46:00 Test Item Value Reference Range Comments POC-GLUCOSE METER (BEAKER) 237 mg/dL 70-110 TESTED AT [facility] [address] (test mtof=2178) [facility] [address] CBC (HEMOGRAM ONLY)2018-02-10 06:44:00 Test Item Value Reference Range Comments WHITE BLOOD CELL COUNT (BEAKER) (test etyy=001) 2.8 K/ L 3.5-10.5 RED BLOOD CELL COUNT (BEAKER) (test dsmw=947) 2.34 M/ L 3.93-5.22 HEMOGLOBIN (BEAKER) (test rdzg=204) 7.2 GM/DL 11.2-15.7 HEMATOCRIT (BEAKER) (test mwep=602) 22.8 % 34.1-44.9 MEAN CORPUSCULAR VOLUME (BEAKER) (test vxme=331) 97.4 fL 79.4-94.8 MEAN CORPUSCULAR HEMOGLOBIN (BEAKER) (test 30.8 pg 25.6-32.2 lysn=960) MEAN CORPUSCULAR HEMOGLOBIN CONC (BEAKER) (test 31.6 GM/DL 32.2-35.5 gmva=445) RED CELL DISTRIBUTION WIDTH (BEAKER) (test 20.3 % 11.7-14.4 wiad=507) PLATELET COUNT (BEAKER) (test jxdq=702) 102 K/CU MM 150-450 MEAN PLATELET VOLUME (BEAKER) (test fyzs=943) 11.3 fL 9.4-12.3 NUCLEATED RED BLOOD CELLS (BEAKER) (test 0 /100 WBC 0-0 smfx=307) RAPID DRUG SCREEN, [id number] 06:12:00 Test Item Value Reference Range Comments BARBITURATE URINE (BEAKER) (test togb=130) Negative Negative BENZODIAZEPINE SCREEN URINE (BEAKER) (test Negative Negative iibm=160) COCAINE (METAB.) SCREEN (BEAKER) (test owdp=5834) Negative Negative METHADONE SCREEN (BEAKER) (test fojv=2121) Negative Negative OPIATE SCREEN URINE (BEAKER) (test wbzl=973) Negative Negative CANNABINOID SCREEN URINE (BEAKER) (test zhzv=505) Negative Negative AMPH/METHAMPH SCREEN (BEAKER) (test aadi=3132) Negative Negative PHENCYCLIDINE SCREEN URINE (BEAKER) (test ypye=311) Negative Negative OXYCODONE SCREEN URINE (BEAKER) (test mvlk=4720) Negative Negative DRUG CUTOFF CONC.Cocaine 300 ng/mL Cannabinoid 50 ng/mL Benzodiazepine 200 ng/mLBarbiturate 200 ng/ mLPhencyclidine 25 ng/mLOpiate 300 ng/mLMethadone 300 ng/mLAmphetamine/ 1000 ng/mL MethamphetamineOxycodone 300 ng/mLThis assay provides an unconfirmed qualitative test result for the clinical management of patients in emergency situations. Chain of custody not maintained. Some gjmm-kqp-obbznjb medications, as well as adulterants, may cause inaccurate results. Clinical correlation should be applied. A more comprehensive drug screen or confirmation of a detected drug may be performed upon request.URINALYSIS W/ REFLEX URINE [id number] 04:33:00 Test Item Value Reference Range Comments COLOR (BEAKER) (test gyzt=776) Yellow CLARITY (BEAKER) (test gkhi=202) Hazy SPECIFIC GRAVITY UA (BEAKER) (test wtcu=638) 1.013 1.001-1.035 PH UA (BEAKER) (test lcdq=927) 6.0 5.0-8.0 PROTEIN UA (BEAKER) (test qzbf=887) 10 mg/dL Negative GLUCOSE UA (BEAKER) (test hvsj=433) Negative Negative KETONES UA (BEAKER) (test fczc=032) Trace Negative BILIRUBIN UA (BEAKER) (test jkrn=359) Negative Negative BLOOD UA (BEAKER) (test muhq=873) Negative Negative NITRITE UA (BEAKER) (test zpbb=399) Negative Negative LEUKOCYTE ESTERASE UA (BEAKER) (test glvf=707) Negative Negative UROBILINOGEN UA (BEAKER) (test cwff=888) 0.2 mg/dL 0.2-1.0 RBC UA (BEAKER) (test jaub=276) < /HPF WBC UA (BEAKER) (test cwjl=357) 2 /HPF BACTERIA (BEAKER) (test lwlf=315) Rare MUCUS (BEAKER) (test aecw=9997) Rare SQUAMOUS EPITHELIAL (BEAKER) (test rlgr=732) 8 /HPF HYALINE CASTS (BEAKER) (test zycp=044) 70 /LPF AMORPHOUS CRYSTALS (BEAKER) (test hymd=2788) Rare SOURCE(BEAKER) (test udfg=4612) BASIC METABOLIC [id number] 02:35:00 Test Item Value Reference Range Comments SODIUM (BEAKER) (test 137 meq/L 136-145 zxbt=642) POTASSIUM (BEAKER) (test 2.9 meq/L 3.5-5.1 clhp=145) CHLORIDE (BEAKER) (test 109 meq/L 98-107 zwfa=534) CO2 (BEAKER) (test 14 meq/L 22-29 zpam=140) BLOOD UREA NITROGEN 31 mg/dL 7-21 (BEAKER) (test vhem=786) CREATININE (BEAKER) (test 1.98 mg/dL 0.57-1.25 alys=377) GLUCOSE RANDOM (BEAKER) 146 mg/dL 70-105 (test lgjq=524) CALCIUM (BEAKER) (test 8.9 mg/dL 8.4-10.2 dhmt=656) EGFR (BEAKER) (test 27 mL/min/1.73 sq m ESTIMATED GFR IS NOT yfrl=0038) ACCURATE CREATININE CLEARANCE IN PREDICTING GLOMERULAR FILTRATION RATE. ESTIMATED GFR IS NOT APPLICABLE FOR DIALYSIS PATIENTS. [id number] 02:35:00 Test Item Value Reference Range Comments MAGNESIUM (BEAKER) (test aidx=997) 2.0 mg/dL 1.6-2.6 HEPATIC FUNCTION [id number] 02:35:00 Test Item Value Reference Range Comments TOTAL PROTEIN (BEAKER) (test emxl=105) 7.4 gm/dL 6.0-8.3 ALBUMIN (BEAKER) (test yqtv=6293) 3.8 g/dL 3.5-5.0 BILIRUBIN TOTAL (BEAKER) (test pvzw=513) 1.8 mg/dL 0.2-1.2 BILIRUBIN DIRECT (BEAKER) (test wkcd=312) 0.9 mg/dL 0.1-0.5 ALKALINE PHOSPHATASE (BEAKER) (test axjl=769) 73 U/L 40-150 AST (SGOT) (BEAKER) (test eywt=188) 38 U/L 5-34 ALT (SGPT) (BEAKER) (test erxh=771) 14 U/L 6-55 BLOOD GAS, [id number] 02:34:00 Test Item Value Reference Range Comments PH VENOUS (BEAKER) (test kmxy=452) 7.42 7.32-7.42 PCO2 VENOUS (BEAKER) (test zhdi=256) 28 mmHg 41-51 PO2 VENOUS (BEAKER) (test mkof=191) 34 mmHg 25-40 O2 SATURATION VENOUS (BEAKER) (test dzkr=710) 67.6 % 40.0-70.0 HCO3 VENOUS (BEAKER) (test jqel=886) 17 mmol/L 21-29 BASE EXCESS VENOUS (BEAKER) (test qcty=885) -6.2 mmol/L -2.0-3.0 PATIENT TEMPERATURE (BEAKER) (test hthr=0800) 37.0 C [id number] 02:33:00 Test Item Value Reference Range Comments PHOSPHORUS (BEAKER) (test ycjj=963) 3.7 mg/dL 2.3-4.7 [id number] 02:33:00 Test Item Value Reference Range Comments LIPASE (BEAKER) (test aszv=798) 40 U/L 8-78 CREATINE KINASE (CK), TOTAL AND [id number] 02:30:00 Test Item Value Reference Range Comments CREATINE KINASE TOTAL (BEAKER) (test gzjc=465) 30 U/L 29-200 CREATINE KINASE-MB (BEAKER) (test fyvp=351) 0.4 ng/mL 0.0-6.6 CREATINE KINASE-MB INDEX (BEAKER) (test uesy=933) 1.3 % CK-MB Reference Range:<6.7 Normal6.7-10.0 Borderline>10.0 AbnormalTROPONIN [id number] 02:30:00 Test Item Value Reference Range Comments TROPONIN I (BEAKER) (test bevo=852) < ng/mL 0.00-0.03 Troponin I (TnI) levels [...] failure, acidosis, acute neurological disease, and persistent tachyarrhythmia.[id number] 02:19:00 Test Item Value Reference Range Comments ETHANOL (BEAKER) (test hfkw=149) < mg/dL <=10 [id number] 02:17:00 Test Item Value Reference Range Comments PARTIAL THROMBOPLASTIN TIME (BEAKER) (test 32.8 seconds 22.5-36.0 srub=493) LACTIC ACID, VENOUS, WHOLE [id number] 02:17:00 Test Item Value Reference Range Comments LACTATE BLOOD VENOUS (2) (BEAKER) (test 1.2 mmol/L 0.5-2.2 rcrz=2181) Effective 12/07/2015: Units/Reference Range ChangeNew: 0.5-2.2 mmol/L Previous: 5 -20 mg/dLPROTHROMBIN [id number] 02:16:00 Test Item Value Reference Range Comments PROTIME (BEAKER) (test nnck=851) 17.0 seconds 11.7-14.7 INR (BEAKER) (test wvle=621) 1.4 <=5.9 RECOMMENDED COUMADIN/WARFARIN INR THERAPY RANGESSTANDARD DOSE: 2.0 - 3.0 Includes: PROPHYLAXIS forvenous thrombosis, systemic embolization; TREATMENT for venous thrombosis and/or pulmonary embolus.HIGH RISK: Target INR is 2.5-3.5 for patients with mechanical heart valves.[id number] 02:16:00 Test Item Value Reference Range Comments AMMONIA (BEAKER) (test dbby=064) 75 mol/L 18-72 [id number] 02:16:00 Test Item Value Reference Range Comments FIBRINOGEN LEVEL (BEAKER) (test mkbo=211) 372 mg/dl 225-434 CBC W/PLT COUNT & AUTO [id number] 02:10:00 Test Item Value Reference Range Comments WHITE BLOOD CELL COUNT (BEAKER) (test jrtk=847) 4.0 K/ L 3.5-10.5 RED BLOOD CELL COUNT (BEAKER) (test cyir=541) 2.78 M/ L 3.93-5.22 HEMOGLOBIN (BEAKER) (test xaum=688) 8.5 GM/DL 11.2-15.7 HEMATOCRIT (BEAKER) (test yfcv=825) 25.8 % 34.1-44.9 MEAN CORPUSCULAR VOLUME (BEAKER) (test gjlz=381) 92.8 fL 79.4-94.8 MEAN CORPUSCULAR HEMOGLOBIN (BEAKER) (test 30.6 pg 25.6-32.2 qxaw=748) MEAN CORPUSCULAR HEMOGLOBIN CONC (BEAKER) (test 32.9 GM/DL 32.2-35.5 zfzj=246) RED CELL DISTRIBUTION WIDTH (BEAKER) (test 18.7 % 11.7-14.4 ppew=259) PLATELET COUNT (BEAKER) (test vqyc=399) 110 K/CU MM 150-450 MEAN PLATELET VOLUME (BEAKER) (test zvar=694) 11.2 fL 9.4-12.3 NUCLEATED RED BLOOD CELLS (BEAKER) (test 0 /100 WBC 0-0 sjam=017) NEUTROPHILS RELATIVE PERCENT (BEAKER) (test 92 % qbdt=860) LYMPHOCYTES RELATIVE PERCENT (BEAKER) (test 4 % kzin=743) MONOCYTES RELATIVE PERCENT (BEAKER) (test 3 % mavz=346) EOSINOPHILS RELATIVE PERCENT (BEAKER) (test 1 % fqon=581) BASOPHILS RELATIVE PERCENT (BEAKER) (test 0 % ldrw=580) NEUTROPHILS ABSOLUTE COUNT (BEAKER) (test 3.69 K/ L 1.56-6.13 mxzh=167) LYMPHOCYTES ABSOLUTE COUNT (BEAKER) (test 0.14 K/ L 1.18-3.74 btet=215) MONOCYTES ABSOLUTE COUNT (BEAKER) (test 0.11 K/ L 0.24-0.36 aact=734) EOSINOPHILS ABSOLUTE COUNT (BEAKER) (test 0.03 K/ L 0.04-0.36 pwxf=872) BASOPHILS ABSOLUTE COUNT (BEAKER) (test 0.01 K/ L 0.01-0.08 muwx=804) IMMATURE GRANULOCYTES-RELATIVE PERCENT (BEAKER) 1 % 0-1 (test vlzp=7119) ANTI-NUCLEAR ANTIBODY (LÓPEZ)2017-11-29 09:50:00 Test Item Value Reference Range Comments ANTI-NUCLEAR ANTIBODY (LÓPEZ) (BEAKER) (test Positive Negative opvc=527) LÓPEZ TITER AND [id number] 09:50:00 Test Item Value Reference Range Comments LÓPEZ TITER (BEAKER) (test egek=8312) :40 LÓPEZ PATTERN (BEAKER) (test onoz=2636) Speckled [id number] 15:34:00 Test Item Value Reference Range Comments FERRITIN (BEAKER) (test oynz=475) 237 ng/mL 5-275 HEPATITIS B SURFACE [id number] 14:54:00 Test Item Value Reference Range Comments HEPATITIS B SURFACE ANTIBODY (BEAKER) (test < mIU/mL <8.0 txlm=130) HEPATITIS B SURFACE [id number] 14:49:00 Test Item Value Reference Range Comments HEPATITIS B SURFACE ANTIGEN (2) (BEAKER) (test Nonreactive Nonreactive bmoj=6749) HEPATITIS C [id number] 14:49:00 Test Item Value Reference Range Comments HEPATITIS C ANTIBODY (BEAKER) (test xeax=675) Nonreactive Nonreactive ALPHA FETOPROTEIN (AFP), TUMOR [id number] 14:48:00 Test Item Value Reference Range Comments ALPHA-FETOPROTEIN (BEAKER) (test zsdn=8711) 4.9 ng/mL <10.0 HEPATITIS B CORE ANTIBODY, [id number] 14:48:00 Test Item Value Reference Range Comments HEPATITIS B CORE TOTAL ANTIBODY (BEAKER) (test Nonreactive Nonreactive plkd=379) HEPATITIS A ANTIBODY, [id number] 14:48:00 Test Item Value Reference Range Comments HEPATITIS A IGG ANTIBODY (BEAKER) (test Nonreactive Nonreactive tvze=7194) CBC W/PLT COUNT & AUTO [id number] 14:30:00 Test Item Value Reference Range Comments WHITE BLOOD CELL COUNT (BEAKER) (test mzus=162) 5.2 K/ L 3.5-10.5 RED BLOOD CELL COUNT (BEAKER) (test fcbj=012) 2.96 M/ L 3.93-5.22 HEMOGLOBIN (BEAKER) (test kdqg=229) 9.7 GM/DL 11.2-15.7 HEMATOCRIT (BEAKER) (test hpql=196) 31.0 % 34.1-44.9 MEAN CORPUSCULAR VOLUME (BEAKER) (test mwba=690) 104.7 fL 79.4-94.8 MEAN CORPUSCULAR HEMOGLOBIN (BEAKER) (test 32.8 pg 25.6-32.2 jgbg=290) MEAN CORPUSCULAR HEMOGLOBIN CONC (BEAKER) (test 31.3 GM/DL 32.2-35.5 bwiu=660) RED CELL DISTRIBUTION WIDTH (BEAKER) (test 17.8 % 11.7-14.4 mndk=834) PLATELET COUNT (BEAKER) (test fxjd=085) 92 K/CU MM 150-450 MEAN PLATELET VOLUME (BEAKER) (test vilt=285) 10.3 fL 9.4-12.3 NUCLEATED RED BLOOD CELLS (BEAKER) (test 0 /100 WBC 0-0 iune=640) NEUTROPHILS RELATIVE PERCENT (BEAKER) (test 81 % rrtw=079) LYMPHOCYTES RELATIVE PERCENT (BEAKER) (test 6 % wltv=490) MONOCYTES RELATIVE PERCENT (BEAKER) (test 9 % cnoh=951) EOSINOPHILS RELATIVE PERCENT (BEAKER) (test 3 % rcwi=450) BASOPHILS RELATIVE PERCENT (BEAKER) (test 1 % icrg=900) NEUTROPHILS ABSOLUTE COUNT (BEAKER) (test 4.23 K/ L 1.56-6.13 fiei=174) LYMPHOCYTES ABSOLUTE COUNT (BEAKER) (test 0.29 K/ L 1.18-3.74 siqn=770) MONOCYTES ABSOLUTE COUNT (BEAKER) (test pgul=108) 0.49 K/ L 0.24-0.36 EOSINOPHILS ABSOLUTE COUNT (BEAKER) (test 0.14 K/ L 0.04-0.36 znlm=922) BASOPHILS ABSOLUTE COUNT (BEAKER) (test yagd=308) 0.06 K/ L 0.01-0.08 IMMATURE GRANULOCYTES-RELATIVE PERCENT (BEAKER) 0 % 0-1 (test tryu=3015) COMPREHENSIVE METABOLIC [id number] 14:28:00 Test Item Value Reference Range Comments TOTAL PROTEIN (BEAKER) 7.6 gm/dL 6.0-8.3 (test iznr=327) ALBUMIN (BEAKER) (test 3.6 g/dL 3.5-5.0 zaid=9424) ALKALINE PHOSPHATASE 144 U/L 40-150 (BEAKER) (test kxze=712) BILIRUBIN TOTAL (BEAKER) 1.1 mg/dL 0.2-1.2 (test rvhf=640) SODIUM (BEAKER) (test 135 meq/L 136-145 hpdi=072) POTASSIUM (BEAKER) (test 3.6 meq/L 3.5-5.1 crrj=004) CHLORIDE (BEAKER) (test 103 meq/L 98-107 buho=804) CO2 (BEAKER) (test 22 meq/L 22-29 apcg=563) BLOOD UREA NITROGEN 16 mg/dL 7-21 (BEAKER) (test oszd=365) CREATININE (BEAKER) (test 1.82 mg/dL 0.57-1.25 rvyh=873) GLUCOSE RANDOM (BEAKER) 102 mg/dL 70-105 (test duqf=446) CALCIUM (BEAKER) (test 9.1 mg/dL 8.4-10.2 wysc=601) AST (SGOT) (BEAKER) (test 39 U/L 5-34 crrv=457) ALT (SGPT) (BEAKER) (test 14 U/L 6-55 pffr=004) EGFR (BEAKER) (test 30 mL/min/1.73 sq m ESTIMATED GFR IS NOT clnr=3039) ACCURATE CREATININE CLEARANCE IN PREDICTING GLOMERULAR FILTRATION RATE. ESTIMATED GFR IS NOT APPLICABLE FOR DIALYSIS PATIENTS. BILIRUBIN, [id number] 14:28:00 Test Item Value Reference Range Comments BILIRUBIN DIRECT (BEAKER) (test ahre=526) 0.6 mg/dL 0.1-0.5 IRON, TIBC, % SAT. (WITHOUT FERRITIN)2017-11-27 14:26:00 Test Item Value Reference Range Comments IRON (BEAKER) (test xcal=537) 37 ug/dL 40-160 TOTAL IRON BINDING CAPACITY (BEAKER) (test 219 ug/dL 250-450 uvuq=946) IRON % SATURATION (2) (BEAKER) (test takv=2472) 17 % 20-55 [id number] 14:25:00 Test Item Value Reference Range Comments ALPHA-1 ANTITRYPSIN (BEAKER) (test pdye=729) 151.80 mg/dL 90.00-200.00 PROTHROMBIN [id number] 14:03:00 Test Item Value Reference Range Comments PROTIME (BEAKER) (test scoy=078) 17.2 seconds 11.7-14.7 INR (BEAKER) (test vdrw=663) 1.4 <=5.9 RECOMMENDED COUMADIN/WARFARIN INR THERAPY RANGESSTANDARD DOSE: 2.0 - 3.0 Includes: PROPHYLAXIS forvenous thrombosis, systemic embolization; TREATMENT for venous thrombosis and/or pulmonary embolus.HIGH RISK: Target INR is 2.5-3.5 for patients with mechanical heart valves.
[2018-10-07 00:22] LABS: Absolute Lymphocytes (CBC) 0.3 K/uL (0.7-4.9); Absolute Monocytes 0.7 K/uL (0.1-1.3); Basophils % 0.9 % (0-1.3); Eosinophils % 0.2 % (0-4.4); Lymphocytes % 3.2 % (15.3-44.8); MPV 10.7 fL (7.6-11.3); Monocytes % 7.2 % (3.3-12.3); RBC Red Blood Cell Count 2.06 M/uL (3.86-4.86)
[2018-10-07 00:23] LABS: Protime INR 1.46
[2018-10-07] MEDS ORDERED: PANTOPRAZOLE 40 MG INJ ONE ×2 (00:34→00:51)
[2018-10-07] MEDS ORDERED: NA CHLORIDE 0.9% 1,000 ML ONE (00:34)
[2018-10-07] MEDS ORDERED: ONDANSETRON 4 MG/2 ML VIAL ONE (00:34)
[2018-10-07] MEDS ORDERED: OCTREOTIDE ACETATE 100 MCG/ML ONE ×2 (00:37→00:47)
[2018-10-07 00:40] LABS: ALT/SGPT 39 U/L (12-78); AST/SGOT 77 U/L (15-37); Albumin 3.2 g/dL (3.4-5.0); Alkaline Phosphatase 121 U/L (45-117); BUN Blood Urea Nitrogen 62 mg/dL (7-18); Bicarbonate 24 mmol/L (21-32); Bilirubin Direct 0.6 mg/dL (0-0.2); Bilirubin Total 1.5 mg/dL (0.2-1.0); Glucose Level 164 mg/dL (74-106); Magnesium 2.1 mg/dL (1.8-2.4); NT PRO-BNP 112 pg/mL (<125); Potassium 3.2 mmol/L (3.5-5.1); Protein, Total 6.1 g/dL (6.4-8.2); Sodium Level 138 mmol/L (136-145); Troponin (Emerg Dept Use Only) < 0.02 ng/mL (0.0-0.045)
[2018-10-07] MEDS ORDERED: NA CHLORIDE 0.9% 500 ML ONE ×2 (00:48→02:04)
[2018-10-07 00:51] LABS: Hematocrit 19.3 % (36.0-45.0)
[2018-10-07] MEDS ORDERED: NA CHLORIDE 0.9% 250 ML ONE ×4 (00:51→20:00)
[2018-10-07 01:11] LABS: Anisocytosis 1+; Blood Morphology Comment NOTED (NOT SEEN); Platelet Estimate ADEQ; Platelets, Giant FEW; Polychromasia SLIGHT; Urine White Blood Cell Casts OK
--- NOTE | 2018-10-07 02:30 | EDPHYS ---
Physician Documentation [facility] Name: Amauri Miller Age: 48 yrs Sex: Female : 1970 Arrival Date: 10/06/2018 Time: 23:24 Bed 13 Private MD: ED Physician Josh Guevara HPI: 10/06 23:55 This 48 yrs old Female presents to ER via EMS with complaints of Bloody cp Stools, vomiting of blood. 23:55 Onset: The symptoms/episode began/occurred 2 day(s) ago. cp 23:55 Associated signs and symptoms: Pertinent negatives: abdominal pain, chest pain, cp constipation, cough, diarrhea, fever. 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 cc3 Historical: - Allergies: 23:10 No Known Allergies; cc3 - Home Meds: 23:10 ciprofloxacin chl 500 mg once dialy for 30 days [Active]; ferrous sulfate 134 mg (27 mg cc3 iron) Oral tab [Active]; folic acid 1 mg Oral tab 1 tab once daily [Active]; furosemide 40 mg Oral tab 1 tab once daily [Active]; lactulose 20 gram/30 mL Oral soln 30 mL 3 times per day [Active]; multivitamin with minerals Oral tab [Active]; nadolol 20 mg Oral tab 1 tab once daily [Active]; omeprazole 20 mg Oral cpDR 2 caps 2 times per day [Active]; potassium chloride 20 mEq Oral TbTQ 1 tab once daily [Active]; rifaximin 550 mg tab Oral 1 tab 2 times per day [Active]; sodium bicarbonate 650 mg Oral tab twice a day [Active]; tramadol 50 mg Oral tab 1 tab every 6 hours [Active]; vitamin b1 [Active]; Zofran (as hydrochloride) 4 mg Oral tab 2 tabs for one tab as needed [Active]; Vitamin B-6 Oral [Active]; - PMHx: 23:10 Anemia; Cirrhosis; esophageal varices; Hernia; second one, not repaired; possible htn; cc3 - Immunization history:: Adult Immunizations up to date. - Social history:: Smoking status: Patient uses tobacco products, smokes one pack cigarettes per day. - Ebola Screening: : No symptoms or risks identified at this time. ROS: 10/07 00:00 Constitutional: Negative for body aches, chills, fever, poor PO intake. cp 00:00 Eyes: Negative for injury, pain, redness, and discharge. cp 00:00 ENT: Negative for drainage from ear(s), ear pain, sore throat, difficulty swallowing, difficulty handling secretions. 00:00 Cardiovascular: Negative for chest pain, edema. 00:00 Respiratory: Negative for cough, shortness of breath, wheezing. 00:00 Abdomen/GI: Positive for hematemesis, black/tarry stool, Negative for abdominal pain, vomiting, diarrhea, constipation. 00:00 : Negative for urinary symptoms. 00:00 Skin: Negative for cellulitis, rash. 00:00 Neuro: Negative for altered mental status, headache, syncope. 00:00 All other systems are negative. Exam: 00:05 Constitutional: The patient appears in no acute distress, alert, awake, cp non-diaphoretic, non-toxic, well developed, well nourished. 00:05 Head/Face: Normocephalic, atraumatic. cp 00:05 Eyes: Periorbital structures: appear normal, Conjunctiva: normal, no exudate, no injection, Sclera: no appreciated abnormality, Lids and lashes: appear normal, bilaterally. 00:05 ENT: External ear(s): are unremarkable, Nose: is normal, Mouth: Lips: moist, Oral mucosa: moist, Posterior pharynx: Airway: no evidence of obstruction, patent. 00:05 Neck: ROM/movement: is normal, is supple, without pain, no range of motions limitations, no nuchal rigidity. 00:05 Chest/axilla: Inspection: normal, Palpation: is normal, no crepitus, no tenderness. 00:05 Cardiovascular: Rate: tachycardic, Rhythm: regular, Edema: is not appreciated, JVD: is not appreciated. 00:05 Respiratory: the patient does not display signs of respiratory distress, Respirations: normal, no use of accessory muscles, no retractions, no splinting, no tachypnea, labored breathing, is not present, Breath sounds: are clear throughout, no decreased breath sounds, no stridor, no wheezing. 00:05 Abdomen/GI: Inspection: distension, that is severe, Bowel sounds: active, all quadrants, Palpation: soft, in all quadrants, mild abdominal tenderness, in the umbilical area, rebound tenderness, is not appreciated, involuntary guarding, is not appreciated. 00:05 Back: pain, is absent, ROM is normal. 00:05 Skin: cellulitis, is not appreciated, no rash present. 00:05 Neuro: Orientation: to person, place \T\ time. Mentation: is normal, Cerebellar function: is grossly normal, Motor: moves all fours, strength is normal. 00:55 ECG was reviewed by the Attending Physician. cp Vital Signs: 10/06 23:10 BP 96 / 73; Pulse 134; Resp 25 S; Temp 98.7(O); Pulse Ox 100% on R/A; Weight 63.5 kg cc3 (R); Height 5 ft. 6 in. (167.64 cm) (R); 10/07 00:46 BP 91 / 61; Pulse 136; Resp 20 S; Pulse Ox 99% on R/A; cc3 01:06 BP 91 / 55; Pulse 118; Resp 23 S; Pulse Ox 100% on R/A; cc3 02:10 BP 89 / 39; Pulse 124; Resp 13 S; Temp 99(O); Pulse Ox 100% on R/A; cc3 02:15 BP 83 / 51; Pulse 123; Resp 16 S; Temp 99(O); Pulse Ox 100% on R/A; cc3 02:20 BP 85 / 48; Pulse 124; Resp 19 S; Temp 98.8(O); Pulse Ox 98% on R/A; cc3 02:25 BP 95 / 52; Pulse 128; Resp 19 S; Temp 98.8(O); Pulse Ox 100% on R/A; cc3 02:40 BP 103 / 59; Pulse 122; Resp 23 S; Temp 98.8(O); Pulse Ox 100% on R/A; cc3 03:10 BP 106 / 68; Pulse 125; Resp 25 S; Temp 98.8(O); Pulse Ox 98% on R/A; cc3 03:40 BP 89 / 56; Pulse 121; Resp 17 S; Temp 98.9(O); Pulse Ox 99% on R/A; cc3 04:10 BP 109 / 90; Pulse 118; Resp 15 S; Temp 98.9(O); Pulse Ox 99% on R/A; cc3 04:40 BP 132 / 91; Pulse 123; Resp 14 S; Temp 98.9(O); Pulse Ox 99% on R/A; cc3 05:10 BP 108 / 76; Pulse 118; Resp 15 S; Temp 98.8(O); Pulse Ox 99% on R/A; cc3 10/06 23:10 Body Mass Index 22.60 (63.50 kg, 167.64 cm) cc3 MDM: 10/06 23:45 Patient medically screened. 10/07 01:20 Physician consultation: Tray Leigh MD was called at 01:20, left message on voicemail. 01:44 Physician consultation: Rg Solis MD was called at 01:44, was contacted at 01:44, regarding consult, patient's condition, spoke with nurse practitioner. 02:20 Data reviewed: vital signs, nurses notes, lab test result(s), EKG, radiologic studies, cp plain films, I have discussed the patient's presentation/case with the attending Emergency Department Physician;. 02:20 Test interpretation: by ED physician or midlevel provider: ECG, plain radiologic cp studies. 10/07 00:07 Order name: Basic Metabolic Panel; Complete Time: 00:54 cp 10/07 00:56 Interpretation: Normal except: K 3.2; GLUC 164; BUN 62; GFR 47; CA 7.9. cp 10/07 00:07 Order name: CBC with Diff; Complete Time: 01:26 cp 10/07 00:55 Interpretation: Normal except: WBC 10.2; RBC 2.06; HGB 6.3; PLT 195; RDW 20.1; MPV cp 10.7; DIAMANTE% 88.5; LYM% 3.2; NEUT A 9.0; LYMA 0.3. 03 00:07 Order name: LFT's; Complete Time: 00:54 cp 10/07 01:27 Interpretation: Normal except: AST 77; ALK 121; BILIT 1.5; BILID 0.6; TP 6.1; ALB 3.2. cp 10/07 00:07 Order name: Magnesium; Complete Time: 00:54 cp 10/07 00:07 Order name: NT PRO-BNP; Complete Time: 00:54 cp 10/07 00:07 Order name: PT-INR; Complete Time: 00:54 cp 10/07 01:27 Interpretation: Reviewed. 10/07 00:07 Order name: Troponin (emerg Dept Use Only); Complete Time: 00:54 cp 10/07 02:15 Interpretation: Reviewed. cp 10/07 00:07 Order name: XRAY Chest (1 view) cp 10/07 00:07 Order name: Type And Screen cp 10/07 00:07 Order name: ETOH Level; Complete Time: 00:54 cp 10/07 00:59 Order name: Packed RBC Leukored -1 EDMS 10/07 01:11 Order name: CBC Smear Scan; Complete Time: 01:26 EDMS 10/07 00:07 Order name: EKG; Complete Time: 00:08 cp 10/07 00:07 Order name: Cardiac monitoring; Complete Time: 00:53 cp 10/07 00:07 Order name: EKG - Nurse/Tech; Complete Time: 00:53 cp 10/07 00:07 Order name: IV Saline Lock; Complete Time: 00:53 cp 10/07 00:07 Order name: Labs collected and sent; Complete Time: 00:53 cp 10/07 00:07 Order name: O2 Per Protocol; Complete Time: 00:53 cp 10/07 00:07 Order name: O2 Sat Monitoring; Complete Time: 00:53 cp 03 02:45 Order name: Transfuse; Complete Time: 02:45 cc3 EC:55 Rate is 130 beats/min. Rhythm is regular. OR interval is normal. QRS interval is cp normal. QT interval is normal. Interpreted by me. Reviewed by me. Administered Medications: 00:30 Drug: Zofran 4 mg Route: IVP; Site: right upper arm; cc3 01:14 Follow up: Response: No adverse reaction; Nausea is decreased; Vomiting decreased cc3 00:35 Drug: NS 0.9% 1000 ml Route: IV; Rate: 1 bolus; Site: right upper arm; cc3 01:35 Follow up: Response: No adverse reaction; IV Status: Completed infusion; IV Intake: cc3 1000ml 00:36 Drug: ProTONIX 40 mg Route: IVP; Site: right upper arm; cc3 01:13 Follow up: Response: No adverse reaction cc3 00:42 Drug: Octreotide 50 mcg Route: IV; Rate: bolus; Site: right upper arm; cc3 00:50 Follow up: Response: No adverse reaction; IV Status: Completed infusion cc3 00:53 Drug: ProTONIX 8 mg/hr Route: IV; Rate: 25 ml/hr; Site: right forearm; fc 00:53 Drug: Octreotide Infusion (50 mcg/hr) - (Octreotide 500 mcg, NS 0.9% 500 ml) Route: IV; fc Rate: 50 ml/hr; Site: right forearm; 02:55 Drug: Vitamin K1 10 mg Route: Sub-Q; Site: left upper arm; cc3 03:01 Follow up: Response: No adverse reaction cc3 Disposition: 10/07/18 02:30 Hospitalization ordered by Kamar Zapata for Inpatient Admission. Preliminary diagnosis are Gastrointestinal hemorrhage, unspecified, Hematemesis, Anemia in chronic diseases classified elsewhere, Alcoholic cirrhosis of liver with ascites. - Bed requested for Intensive Care Unit. - Status is Inpatient Admission. rb1 - Condition is Stable. - Problem is an acute exacerbation. - Symptoms have improved. UTI on Admission? No Addendum: 10/08/2018 11:15 Co-signature as Attending Physician, Josh Guevara MD I agree with the assessment and c soria plan of care. Signatures: Dispatcher [employer] EDMS Josi Ruiz RN RN mw Anderson, Corey, MD MD cha Chretien, Felicia, RN RN fc Ballard, Brenda, RN RN bb Page, Corey, PA PA cp Barber, Rebecca, RN RN rb1 Shaina Ariza cc3 Corrections: (The following items were deleted from the chart) 03 00:55 00:55 Normal except: WBC 10.2; RBC 2.06; HGB 6.3; PLT 195; RDW 20.1; MPV 10.7; DIAMANTE% cp 88.5; LYM% 3.2; NEUT A 9.0. cp 00:56 00:55 Normal except: K 3.2; GLUC 164; BUN 62; GFR 47. cp cp 02:30 02:30 Hospitalization Ordered by Kamar Zapata MD for Inpatient Admission. Preliminary cp diagnosis is Gastrointestinal hemorrhage, unspecified; Hematemesis; Anemia in chronic diseases classified elsewhere. Bed requested for Intensive Care Unit. Status is Inpatient Admission. Condition is Stable. Problem is an acute exacerbation. Symptoms have improved. UTI on Admission? No. cp 03:09 02:30 10/07/2018 02:30 Hospitalization Ordered by Kamar Zapata MD for Inpatient bb Admission. Preliminary diagnosis is Gastrointestinal hemorrhage, unspecified; Hematemesis; Anemia in chronic diseases classified elsewhere; Alcoholic cirrhosis of liver with ascites. Bed requested for Intensive Care Unit. Status is Inpatient Admission. Condition is Stable. Problem is an acute exacerbation. Symptoms have improved. UTI on Admission? No. cp 05:37 03:09 10/07/2018 02:30 Hospitalization Ordered by Kamar Zapata MD for Inpatient mw Admission. Preliminary diagnosis is Gastrointestinal hemorrhage, unspecified; Hematemesis; Anemia in chronic diseases classified elsewhere; Alcoholic cirrhosis of liver with ascites. Bed requested for [email or web address] ER HOLD. Status is Inpatient Admission. Condition is Stable. Problem is an acute exacerbation. Symptoms have improved. UTI on Admission? No. bb 08:13 05:37 10/07/2018 02:30 Hospitalization Ordered by Kamar Zapata MD for Inpatient rb1 Admission. Preliminary diagnosis is Gastrointestinal hemorrhage, unspecified; Hematemesis; Anemia in chronic diseases classified elsewhere; Alcoholic cirrhosis of liver with ascites. Bed requested for Intensive Care Unit. Status is Inpatient Admission. Condition is Stable. Problem is an acute exacerbation. Symptoms have improved. UTI on Admission? No. mw
--- NOTE | 2018-10-07 02:30 | ER ---
Nurse's Notes [facility] Name: Amauri Miller Age: 48 yrs Sex: Female : 1970 Arrival Date: 10/06/2018 Time: 23:24 Bed 13 Private MD: Diagnosis: Gastrointestinal hemorrhage, unspecified;Hematemesis;Anemia in chronic diseases classified elsewhere;Alcoholic cirrhosis of liver with ascites Presentation: 10/06 23:10 Presenting complaint: EMS states: vomiting of blood and blood in stools since 2 days. cc3 Transition of care: patient was not received from another setting of care. Onset of symptoms was October 04, 2018. Risk Assessment: Do you want to hurt yourself or someone else? Patient reports no desire to harm self or others. Initial Sepsis Screen: Does the patient meet any 2 criteria? No. Patient's initial sepsis screen is negative. Does the patient have a suspected source of infection? No. Patient's initial sepsis screen is negative. Care prior to arrival: None. 23:10 Method Of Arrival: EMS: [facility] cc3 23:10 Acuity: CASI 3 cc3 Triage Assessment: 23:10 General: Appears in no apparent distress. uncomfortable, Behavior is calm, cooperative, cc3 appropriate for age. Pain: Complains of pain in abdomen. EENT: No signs and/or symptoms were reported regarding the EENT system. Neuro: Level of Consciousness is awake, alert, obeys commands, Oriented to person, place, time, situation, Appropriate for age. Cardiovascular: Patient's skin is warm and dry. Respiratory: Airway is patent Respiratory effort is even, unlabored, Respiratory pattern is regular, symmetrical. GI: Abdomen is distended, noted to have ascites, with dry wound noted on the upper part of the umbilical area Pt is actively vomiting bright red blood. : No signs and/or symptoms were reported regarding the genitourinary system. Derm: Wound noted dry wound over her abdomen. Musculoskeletal: Circulation, motion, and sensation intact. Range of motion: intact in all extremities. 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 cc3 Historical: - Allergies: 23:10 No Known Allergies; cc3 - Home Meds: 23:10 ciprofloxacin chl 500 mg once dialy for 30 days [Active]; ferrous sulfate 134 mg (27 mg cc3 iron) Oral tab [Active]; folic acid 1 mg Oral tab 1 tab once daily [Active]; furosemide 40 mg Oral tab 1 tab once daily [Active]; lactulose 20 gram/30 mL Oral soln 30 mL 3 times per day [Active]; multivitamin with minerals Oral tab [Active]; nadolol 20 mg Oral tab 1 tab once daily [Active]; omeprazole 20 mg Oral cpDR 2 caps 2 times per day [Active]; potassium chloride 20 mEq Oral TbTQ 1 tab once daily [Active]; rifaximin 550 mg tab Oral 1 tab 2 times per day [Active]; sodium bicarbonate 650 mg Oral tab twice a day [Active]; tramadol 50 mg Oral tab 1 tab every 6 hours [Active]; vitamin b1 [Active]; Zofran (as hydrochloride) 4 mg Oral tab 2 tabs for one tab as needed [Active]; Vitamin B-6 Oral [Active]; - PMHx: 23:10 Anemia; Cirrhosis; esophageal varices; Hernia; second one, not repaired; possible htn; cc3 - Immunization history:: Adult Immunizations up to date. - Social history:: Smoking status: Patient uses tobacco products, smokes one pack cigarettes per day. - Ebola Screening: : No symptoms or risks identified at this time. Screenin:10 Abuse screen: Denies threats or abuse. Denies injuries from another. Nutritional cc3 screening: No deficits noted. Tuberculosis screening: No symptoms or risk factors identified. Fall Risk Ambulatory Aid- None/Bed Rest/Nurse Assist (0 pts). Gait- Weak (10 pts.). Mental Status- Oriented to own ability (0 pts). Assessment: 23:10 General: see triage note. cc3 10/07 00:25 Reassessment: Patient appears in no apparent distress at this time. Patient and/or cc3 family updated on plan of care and expected duration. Pain level reassessed. Patient is alert, oriented x 3, equal unlabored respirations, skin warm/dry/pink. 01:12 Reassessment: Patient appears in no apparent distress at this time. Patient and/or cc3 family updated on plan of care and expected duration. Pain level reassessed. Patient is alert, oriented x 3, equal unlabored respirations, skin warm/dry/pink. 01:45 Reassessment: PA Page ordered for 2 units of PRBC transfusion for hemoglobin of 6.3, cc3 consent for blood transfusion secured and completed signed by the patient herself. 02:10 Reassessment: Patient appears in no apparent distress at this time. Patient and/or cc3 family updated on plan of care and expected duration. Pain level reassessed. Patient is alert, oriented x 3, equal unlabored respirations, skin warm/dry/pink. First unit of packed RBC received with unit number [id number], blood counterchecked and started with KIMBERLY Topete, patient closely monitored at bedside. See transfusion record for vital signs recorded. 03:00 Reassessment: Patient appears in no apparent distress at this time. Patient and/or cc3 family updated on plan of care and expected duration. Pain level reassessed. Patient is alert, oriented x 3, equal unlabored respirations, skin warm/dry/pink. Patient on ER Hold, charting continued in [facility]. 07:38 Reassessment: Gave report to KIMBERLY Lyon. Information from the SBAR was given. All rb1 questions asked and answered. Vital Signs: 10/06 23:10 BP 96 / 73; Pulse 134; Resp 25 S; Temp 98.7(O); Pulse Ox 100% on R/A; Weight 63.5 kg cc3 (R); Height 5 ft. 6 in. (167.64 cm) (R); 05 00:46 BP 91 / 61; Pulse 136; Resp 20 S; Pulse Ox 99% on R/A; cc3 01:06 BP 91 / 55; Pulse 118; Resp 23 S; Pulse Ox 100% on R/A; cc3 02:10 BP 89 / 39; Pulse 124; Resp 13 S; Temp 99(O); Pulse Ox 100% on R/A; cc3 02:15 BP 83 / 51; Pulse 123; Resp 16 S; Temp 99(O); Pulse Ox 100% on R/A; cc3 02:20 BP 85 / 48; Pulse 124; Resp 19 S; Temp 98.8(O); Pulse Ox 98% on R/A; cc3 02:25 BP 95 / 52; Pulse 128; Resp 19 S; Temp 98.8(O); Pulse Ox 100% on R/A; cc3 02:40 BP 103 / 59; Pulse 122; Resp 23 S; Temp 98.8(O); Pulse Ox 100% on R/A; cc3 03:10 BP 106 / 68; Pulse 125; Resp 25 S; Temp 98.8(O); Pulse Ox 98% on R/A; cc3 03:40 BP 89 / 56; Pulse 121; Resp 17 S; Temp 98.9(O); Pulse Ox 99% on R/A; cc3 04:10 BP 109 / 90; Pulse 118; Resp 15 S; Temp 98.9(O); Pulse Ox 99% on R/A; cc3 04:40 BP 132 / 91; Pulse 123; Resp 14 S; Temp 98.9(O); Pulse Ox 99% on R/A; cc3 05:10 BP 108 / 76; Pulse 118; Resp 15 S; Temp 98.8(O); Pulse Ox 99% on R/A; cc3 / 23:10 Body Mass Index 22.60 (63.50 kg, 167.64 cm) cc3 ED Course: 10/06 23:10 Arm band placed on right wrist. Patient notified of wait time. cc3 23:10 Patient has correct armband on for positive identification. Placed in gown. Bed in low cc3 position. Call light in reach. Side rails up X 1. vehicle monitor technician on. Pulse ox on. NIBP on. 23:24 Patient arrived in ED. ed1 23:25 Inserted saline lock: 22 gauge in right forearm, using aseptic technique. Blood mt collected. 23:27 Shaina Ariza is Primary Nurse. cc3 23:43 Triage completed. cc3 23:45 [facility] cp 23:45 Josh Guevara MD is Attending Physician. cp 10/07 00:30 T\T\S collected, blood band applied to patient. Inserted 18 gauge 8 cm midline to right fc upper basilic vein on first attempt. Line with good blood return and flushes well. 00:52 Notified Nurse Practitioner and/or Physician Drive Away Driver of a critical lab result(s), hgb fc 6.3, hct 19.1 Josh AGGARWAL notified. 00:53 X-ray completed. Portable x-ray completed in exam room. Patient tolerated procedure kw well. 00:55 XRAY Chest (1 view) In Process Unspecified. EDMS 02:29 Kamar Zapata MD is Hospitalizing Provider. cp 07:00 Report given to KIMBERLY Quinones. cc3 07:32 Stacie Clifton RN is Primary Nurse. rb1 08:13 No provider procedures requiring assistance completed. Patient admitted, IV remains in rb1 place. Administered Medications: 00:30 Drug: Zofran 4 mg Route: IVP; Site: right upper arm; cc3 01:14 Follow up: Response: No adverse reaction; Nausea is decreased; Vomiting decreased cc3 00:35 Drug: NS 0.9% 1000 ml Route: IV; Rate: 1 bolus; Site: right upper arm; cc3 01:35 Follow up: Response: No adverse reaction; IV Status: Completed infusion; IV Intake: cc3 1000ml 00:36 Drug: ProTONIX 40 mg Route: IVP; Site: right upper arm; cc3 01:13 Follow up: Response: No adverse reaction cc3 00:42 Drug: Octreotide 50 mcg Route: IV; Rate: bolus; Site: right upper arm; cc3 00:50 Follow up: Response: No adverse reaction; IV Status: Completed infusion cc3 00:53 Drug: ProTONIX 8 mg/hr Route: IV; Rate: 25 ml/hr; Site: right forearm; fc 00:53 Drug: Octreotide Infusion (50 mcg/hr) - (Octreotide 500 mcg, NS 0.9% 500 ml) Route: IV; fc Rate: 50 ml/hr; Site: right forearm; 02:55 Drug: Vitamin K1 10 mg Route: Sub-Q; Site: left upper arm; cc3 03:01 Follow up: Response: No adverse reaction cc3 Intake: 01:35 IV: 1000ml; Total: 1000ml. cc3 Outcome: 02:30 Decision to Hospitalize by Provider. cp 08:13 Patient left the ED. rb1 08:13 Admitted to OR accompanied by nurse, via stretcher, with chart, Report called to rb1 Report was called to KIMBERLY Lyon in ICU at 0738. Gave bedside report to KIMBERLY Spencer from [facility] when she came to transport the pt. to the OR. 08:13 Condition: stable 08:13 Instructed on the need for admit. Signatures: Dispatcher [employer] EDMS La Seals RN RN fc Riggs, Erika, RN RN ed1 Fidelina Dave Corey, PA PA cp Barber, Rebecca, RN RN rb1 Annel Astudillo mt, Charlene cc3 Corrections: (The following items were deleted from the chart) 01:07 10/06 23:10 BP 96 / 73; Pulse 134bpm; Resp 20bpm; Spontaneous; Pulse Ox 100% RA; Temp cc3 98.7F Oral; 63.5 kg Reported; Height 5 ft. 6 in. Reported; BMI: 22.6; cc3 10/07 06:14 02:10 Reassessment: Patient appears in no apparent distress at this time. Patient cc3 and/or family updated on plan of care and expected duration. Pain level reassessed. Patient is alert, oriented x 3, equal unlabored respirations, skin warm/dry/pink. First unit of packed RBC received with unit number [id number], blood counterchecked and started with KIMBERLY Topete, patient closely monitored at bedside. cc3
[2018-10-07] MEDS ORDERED: VITAMIN K (ADULT) 10 MG/ML ONE (03:02)
--- NOTE | 2018-10-07 03:13 | P.HP ---
Certification for Inpatient Patient admitted to: Inpatient With expected LOS: >2 Midnights Practitioner: I am a practitioner with admitting privileges, knowledge of patient current condition, hospital course, and medical plan of care. Services: Services provided to patient in accordance with Admission requirements found in Title 42 Section 412.3 of the Code of Federal Regulations Patient History Date of Service: 10/07/18 Reason for admission: GIB History of Present Illness: Ms Miller is a 48 years old woman with history of alcoholic liver cirrhosis, portal hypertension with recurrent episodes of ascites requiring paracentesis, previous GIB due to esophageal varices requiring banding procedure, who came to ED complaining of epigastric abdominal pain, associated with bloody vomiting and black stools. Her symptoms started last night. She states that had samoan food and only had 1 gerson. She blamed her symptoms to the samoan food. She was feeling dizzy today. At arrival her lab work was remarkable for anemia, Hgb was 6.3 mg/dl, BUN 62, hypokalemic, abnormal liver function. Her BP was 96/78, HR 134 bpm. Allergies No Known Allergies Allergy (Verified 09/10/18 18:25) Home medications list reviewed: Yes Home Medications: Diphenhydramine [Benadryl*] 2 tab PO BEDTIME PRN 04/06/18 Ondansetron HCl [Zofran] 4 mg PO Q8H PRN 04/06/18 Melatonin/Pyridoxine [Melatonin 5 mg Tablet] 10 mg PO BEDTIME 09/10/18 Pyridoxine [Vitamin B-6*] 100 mg PO DAILY 09/10/18 Trazodone [Desyrel*] 50 mg PO BEDTIME MDD 1 09/10/18 Ferrous Sulfate [Iron] 325 mg PO BID #60 tablet 09/27/18 Folic Acid 1 mg PO DAILY #30 tablet 09/27/18 Furosemide [Lasix*] 20 mg PO DAILY #30 tab 09/27/18 Lactulose [Cephulac*] 30 ml PO DAILY #1 bottle 09/27/18 Midodrine HCl 5 mg PO TID #90 tablet 09/27/18 Pantoprazole [Protonix Tab*] 40 mg PO BIDAC #60 tab 09/27/18 Rifaximin [Xifaxan] 550 mg PO BID #60 tablet 09/27/18 Spironolactone [Aldactone*] 25 mg PO DAILY #30 tab 09/27/18 Thiamine HCl [Vitamin B-1*] 100 mg PO DAILY #30 tablet 09/27/18 - Past Medical/Surgical History Diabetic: No -: cirrhosis -: etoh abuse -: ascites -: hernia -: GIB -: anemia -: esophageal varices -: hernia -: Multiple paracentesis -: Hernia repair -: Esophageal banding with multiple EGD's Psychosocial/ Personal History: Patient is single. She has 3 children. She does not work. - Family History Father -: Liver disease Notes: patient adopted, does not any history of her parents - Social History Smoking Status: Current every day smoker Counseled patient to stop smoking for: less than 10 minutes Alcohol use: Yes CD- Drugs: No Caffeine use: Yes Place of Residence: Home Review of Systems 10-point ROS is otherwise unremarkable Physical Examination - Physical Exam General: Alert, In no apparent distress HEENT: Atraumatic, PERRLA, Mucous membr. moist/pink, EOMI, Scleral icterus Neck: Supple, 2+ carotid pulse no bruit, No LAD, Without JVD or thyroid abnormality Respiratory: Normal air movement, Diminished Cardiovascular: Regular rate/rhythm, Normal S1 S2 Gastrointestinal: Normal bowel sounds, Distended, Ascites, Tenderness Musculoskeletal: No tenderness Integumentary: No rashes Neurological: Normal speech, Normal strength at 5/5 x4 extr, Normal tone, Normal affect Lymphatics: No axilla or inguinal lymphadenopathy - Studies Laboratory Data (last 24 hrs) 10/06/18 23:20: PT 17.0 H, INR 1.46 10/06/18 23:20: WBC 10.2 D, Hgb 6.3 L*, Hct 19.3 L* D, Plt Count 195 D 10/06/18 23:20: Sodium 138, Potassium 3.2 L, BUN 62 H D, Creatinine 1.22, Glucose 164 H, Magnesium 2.1, Total Bilirubin 1.5 H, AST 77 H, ALT 39, Alkaline Phosphatase 121 H Assessment and Plan - Problems (Diagnosis) (1) Acute blood loss anemia Onset Date: 04/25/18 Current Visit: No Status: Acute (2) Acute on chronic renal failure Onset Date: 09/11/18 Current Visit: No Status: Acute Qualifiers: Chronic kidney disease stage: stage 3 (moderate) (3) Cirrhosis, alcoholic Current Visit: No Status: Acute Qualifiers: Ascites presence: with ascites Qualified Code(s): K70.31 - Alcoholic cirrhosis of liver with ascites (4) Gastrointestinal hemorrhage Onset Date: 09/11/18 Current Visit: No Status: Acute Qualifiers: GI bleed type/associated pathology: gastrointestinal hemorrhage with hematemesis Qualified Code(s): K92.0 - Hematemesis (5) Hypokalemia Onset Date: 12/09/17 Current Visit: No Status: Acute (6) Tobacco abuse Onset Date: 09/11/18 Current Visit: No Status: Acute (7) History of esophageal varices Current Visit: No Status: Chronic - Plan The patient will be admitted to ICU due to upper GIB. Will continue with Protonix and Octreotide drip, Josh King spoke with Dr Solis's PA, who comfirmed that will see the patient in the morning. In the meantime will transfuse 2 units of PRBC's, and 2 FFP's. Keep her NPO. - Advance Directives Does patient have a Living Will: No Does patient have a Durable POA for Healthcare: No - Code Status/Comfort Care Code Status Assessed: Yes Code Status: Full Code
[2018-10-07] MEDS: PANTOPRAZOLE INJ 80 MG in NA CHLORIDE 0.9% 250 ML IV SCH ×2 (04:00→14:04)
[2018-10-07] MEDS ORDERED: OCTREOTIDE 500 MCG in NA CHLORIDE 0.9% 500 ML IV SCH (04:00)
[2018-10-07] MEDS: NA CHLORIDE 0.9% 1,000 ML IV SCH ×2 (04:00→12:59)
--- NOTE | 2018-10-07 08:24 | RAD REPORT ---
EXAM DESCRIPTION: [place] Single View10/07/2018 12:57 am CLINICAL HISTORY: Hemoptysis COMPARISON: April 2018 FINDINGS: The lungs appear clear of acute infiltrate. The heart is normal size IMPRESSION: No acute abnormalities displayed
[2018-10-07] MEDS ORDERED: LIDOCAINE 1% MPF 5 ML VIAL ONE (08:47)
[2018-10-07] MEDS ORDERED: PROPOFOL 200 MG/20 ML VIAL IV ONE ×2 (08:47)
[2018-10-07] MEDS ORDERED: CEFTRIAXONE 1 GM/NS 50 ML 1 GM/50 ML BAG IV SCH (09:00)
--- NOTE | 2018-10-07 09:52 | OP ---
Surgeon: Rg Solis MD Procedure To Be Performed: Esophagogastroduodenoscopy. Performing Physician: Rg Solis M.D. Indication For Procedure: Upper GI bleed, likely varices, and the patient with cirrhosis. Of note, the patient is Dr. Leigh's patient. However, he is unavailable at this time. Therefore, I am going to do the case. Plan For Anesthesia: Monitored anesthesia care. Complexity: High. Technique: After obtaining informed consent from the patient and explaining risks and complications which include, but are not limited to bleeding, infection, perforation, and anesthesia complication, the patient was placed in the left lateral position, and sedation was given. The scope was advanced into the mouth, and carefully guided up until the second portion of the duodenum. Stigmata of active bleeding was seen in the esophagus, and was treated. After the completion of examination, the scope and equipment were withdrawn, and procedure was terminated in a safe manner. Findings: Duodenum: No gross lesion seen in the brief view of the duodenum. Stomach: Evidence of moderate portal hypertensive gastropathy. No bleeding. Retroflexion did not r eveal any definitive gastric varices. Esophagus: In the mid and distal esophagus, at least grade 3 varices with significant scarring were seen. Two large ulcers were visualized at the site of prior bandings. The more proximal ulcer actua llisela had bleeding from its margin, which was quite significant, and nearby varix also was seen right n ext to the ulcer. Ideally, this would be treated with TIPS; however, we did not have that ability at least at this time. Therefore, decision was taken to try banding first. One band was successfully placed more distal to this bleeding varix, and then another band was attempted. This was accomplishe d with some difficulty as there was significant scarring, but we were able to get a good whole of the varix, and banded. This resulted in the bleeding stopping completely. Complications: None. Tolerance To Anesthesia: Excellent. Postoperative Diagnosis: Esophageal varices with bleeding from varix as well as ulcerated area. Plan: Continue IV PPI, octreotide, and antibiotics. I also briefly discussed the case with the Live r Team. They agreed that the TIPS would be the way to go if there is any further evidence of rebleed ing noted. I will communicate this to the primary team. We will keep the patient n.p.o. for now. US/HILARIO Voice ID: [id number] Report ID: [id number]
[2018-10-07] MEDS: FOLIC ACID 1 MG, MULTIVITAMINS INJ 10 ML, THIAMINE HCL 100 MG in NA CHLORIDE 0.9% 1,000 ML IV SCH ×2 (09:57→16:15)
[2018-10-07] MEDS: CEFTRIAXONE/SWI 1gm 1 GM/10 ML SYR IV SCH (10:06)
[2018-10-07] MEDS: MIDODRINE HCL 5 MG TABLET PO SCH ×3 (10:06→19:59)
--- NOTE | 2018-10-07 10:31 | EKG ---
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
[2018-10-07] MEDS: OCTREOTIDE 500 MCG in NA CHLORIDE 0.9% 500 ML IV SCH ×2 (10:49→21:21)
--- NOTE | 2018-10-07 11:37 | P.PN ---
Subjective Date of Service: 10/07/18 Primary Care Provider: None Chief Complaint: GIB Subjective: Other (No significant nausea, vomiting at this time.) Physical Examination - Vital Signs Temperature: 97.7 F Blood Pressure: 112/71 Pulse: 103 Respirations: 16 Pulse Ox (%): 97 - Physical Exam General: Alert, In no apparent distress, Oriented x3, Cooperative HEENT: Atraumatic Neck: Supple Respiratory: Clear to auscultation bilaterally, Normal air movement Cardiovascular: Abnormal pulses (Mild sinus tachycardia) Gastrointestinal: Normal bowel sounds, Soft and benign, No tenderness, No masses , No rebound, No guarding, Ascites (Severe abdominal ascites noted) Musculoskeletal: No erythema, No tenderness, No warmth Integumentary: No tenderness/swelling, No erythema, No warmth, No cyanosis Neurological: Normal speech, Normal strength at 5/5 x4 extr, Normal tone, Normal affect - Studies Laboratory Data (last 24 hrs) 10/06/18 23:20: PT 17.0 H, INR 1.46 10/06/18 23:20: WBC 10.2 D, Hgb 6.3 L*, Hct 19.3 L* D, Plt Count 195 D 10/06/18 23:20: Sodium 138, Potassium 3.2 L, BUN 62 H D, Creatinine 1.22, Glucose 164 H, Magnesium 2.1, Total Bilirubin 1.5 H, AST 77 H, ALT 39, Alkaline Phosphatase 121 H Medications List Reviewed: Yes Assessment & Plan Discharge Plan: Home Plan to discharge in: Greater than 2 days Physician Review Additional Text: Impression: Acute on chronic anemia with acute recurrent upper GI bleed secondary to esophageal varices bleed with gastric ulcer status post banding with history of alcoholic cirrhosis and esophageal varices complicated with alcohol abuse Acute on chronic renal failure, stage III Severe advanced ascites with history of multiple recurrent paracentesis Alcohol/tobacco abuse Orthostatic hypotension on midodrine Plan: Acute on chronic anemia with acute recurrent upper GI bleed secondary to esophageal varices bleed with gastric ulcer status post banding with history of alcoholic cirrhosis and esophageal varices complicated with alcohol abuse: Spoke with GI this morning. GI performed EGD. Bleeding noted to varices and gastric ulcer. Banding was done with stoppage of bleeding. Scarring noted to esophageal area. GI spoke with liver center-Dr Doss. If the patient continues to bleed patient will need to be transferred to liver center for TIPS procedure. At this time no bleeding noted. Will consider advancing diet to clears tomorrow. Continue with IV Protonix, Rocephin and octreotide. If the patient continues to improve patient may be able to be discharged home over the next couple of days. Will need to monitor closely. Patient to get 2 units of blood. Will monitor hemoglobin closely. Continue to reassess and monitor serial lab/exam. Acute on chronic renal failure, stage III: Continue fluids. Will monitor closely. Severe advanced ascites with history of multiple recurrent paracentesis: Will order radiology assisted paracentesis tomorrow. Albumin IV to be given after paracentesis. Alcohol/tobacco abuse: Continue to address lifestyle modification education including alcohol and tobacco cessation. Orthostatic hypotension on midodrine: Will restart midodrine. Time Spent Managing Pts Care (In Minutes): 55
[2018-10-07] MEDS ORDERED: FUROSEMIDE 20 MG/ 2ML VIAL IV ONE ×2 (15:50→18:39)
[2018-10-07 17:43] LABS: Potassium 3.3 mmol/L (3.5-5.1)
[2018-10-07 18:05] LABS: Hematocrit 19.3 % (36.0-45.0)
[2018-10-07] MEDS ORDERED: MORPHINE 2 MG/ML SYR IV PRN (18:26)
[2018-10-07] MEDS: ONDANSETRON 4 MG/2 ML VIAL IV PRN (19:56)
[2018-10-07] MEDS: HYDROCODONE/APAP 7.5/325 MG TAB PO PRN (20:00)
[2018-10-07] MEDS ORDERED: TRAZODONE 50 MG TABLET PO ONE (23:17)
[2018-10-07] MEDS: KCL 20 MEQ/100 mL IVPB 20 MEQ/100 ML BAG IV SCH (23:26)
[2018-10-08 00:59] LABS: Hematocrit 20.7 % (36.0-45.0)
[2018-10-08] MEDS: KCL 20 MEQ/100 mL IVPB 20 MEQ/100 ML BAG IV SCH ×3 (01:06→10:26)
[2018-10-08] MEDS: PANTOPRAZOLE INJ 80 MG in NA CHLORIDE 0.9% 250 ML IV SCH ×5 (02:37→20:00)
[2018-10-08 05:38] LABS: Absolute Lymphocytes (CBC) 0.3 K/uL (0.7-4.9); Absolute Monocytes 0.4 K/uL (0.1-1.3); Absolute Neutrophil 3.6 K/uL (1.8-8.0); Basophils % 1.9 % (0-1.3); Eosinophils % 3.9 % (0-4.4); Lymphocytes % 6.5 % (15.3-44.8); Monocytes % 9.1 % (3.3-12.3); RBC Red Blood Cell Count 2.13 M/uL (3.86-4.86)
[2018-10-08 05:43] LABS: Hematocrit 19.6 % (36.0-45.0)
[2018-10-08 06:13] LABS: Albumin 2.7 g/dL (3.4-5.0); Bilirubin Total 1.9 mg/dL (0.2-1.0); Magnesium 1.9 mg/dL (1.8-2.4); Potassium 3.4 mmol/L (3.5-5.1); Protein, Total 5.1 g/dL (6.4-8.2)
[2018-10-08] MEDS ORDERED: NA CHLORIDE 0.9% 250 ML ONE ×2 (06:37→23:35)
[2018-10-08] MEDS: MIDODRINE HCL 5 MG TABLET PO SCH ×3 (08:37→21:25)
[2018-10-08] MEDS: CEFTRIAXONE/SWI 1gm 1 GM/10 ML SYR IV SCH (08:37)
[2018-10-08] MEDS: OCTREOTIDE 500 MCG in NA CHLORIDE 0.9% 500 ML IV SCH ×2 (08:38→18:23)
[2018-10-08] MEDS: NA CHLORIDE 0.9% 1,000 ML IV SCH ×3 (10:00→20:00)
--- NOTE | 2018-10-08 10:03 | RAD REPORT ---
EXAM DESCRIPTION: US - Paracentesis Proc Guidance - 10/08/2018 9:46 am CLINICAL HISTORY: Ascities Ascites COMPARISON: Paracentesis Proc Guidance dated 10/01/2018 FINDINGS: Informed consent was obtained and time-out was performed. Patient's abdomen was prepped and draped in the usual sterile fashion. 1% lidocaine was used for loca l anesthetic purposes. A small skin incision was made along the right lower quadrant. A paracentesis catheter was guided int o the peroneal cavity under sonographic guidance. A small amount of fluid was sent for requested lab studies. A large volume paracentesis was performed . The patient tolerated the procedure well. Following the procedure, the patient transferred back to the ICU. IMPRESSION: Successful ultrasound-guided paracentesis.
[2018-10-08] MEDS ORDERED: ALBUMIN HUMAN 25% 100 ML IV ONE (10:20)
[2018-10-08 12:44] LABS: Hematocrit 22.3 % (36.0-45.0)
[2018-10-08] MEDS: HYDROCODONE/APAP 7.5/325 MG TAB PO PRN ×2 (13:19→21:25)
[2018-10-08] MEDS: FOLIC ACID 1 MG, MULTIVITAMINS INJ 10 ML, THIAMINE HCL 100 MG in NA CHLORIDE 0.9% 1,000 ML IV SCH (13:20)
[2018-10-08] MEDS ORDERED: POTASSIUM 25 MEQ EFFERV TAB PO ONE (15:33)
[2018-10-08 15:39] LABS: Appearance SLT. TURBID (CLEAR); Body Fluid Source PERITONEAL; Color of fluid Pink (COLORLESS)
[2018-10-08 15:45] LABS: Body Fluid WBC 25 /mm^3
--- NOTE | 2018-10-08 16:09 | P.PN ---
Subjective Date of Service: 10/08/18 Primary Care Provider: None Chief Complaint: GIB Subjective: Improving Physical Examination - Vital Signs Temperature: 97 F Blood Pressure: 117/65 Pulse: 82 Respirations: 12 Pulse Ox (%): 100 - Physical Exam General: Alert, In no apparent distress, Oriented x3, Cooperative HEENT: Atraumatic Neck: Supple Respiratory: Clear to auscultation bilaterally, Normal air movement Cardiovascular: Normal pulses, Regular rate/rhythm Gastrointestinal: Normal bowel sounds, No tenderness, No masses, No rebound, No guarding, Ascites Integumentary: No tenderness/swelling, No erythema, No warmth, No cyanosis Neurological: Normal speech, Normal strength at 5/5 x4 extr, Normal tone, Normal affect - Studies Medications List Reviewed: Yes Assessment & Plan Discharge Plan: Home Plan to discharge in: 48 Hours Physician Review Additional Text: Impression: Acute on chronic anemia with acute recurrent upper GI bleed secondary to esophageal varices bleed with gastric ulcer status post banding with history of alcoholic cirrhosis and esophageal varices complicated with alcohol abuse Acute on chronic renal failure, stage III Severe advanced ascites with history of multiple recurrent paracentesis Alcohol/tobacco abuse Orthostatic hypotension on midodrine Plan: Acute on chronic anemia with acute recurrent upper GI bleed secondary to esophageal varices bleed with gastric ulcer status post banding with history of alcoholic cirrhosis and esophageal varices complicated with alcohol abuse: Patient continues to do well. Will advance diet to clear liquid. Patient receiving another unit of blood. Will continue to monitor hemoglobin. Anticipate improvement with patient. If bleeding continues will need to transfer to liver center for TIPS procedure. Continue IV Protonix, Rocephin and octreotide. If the patient continues to improve and hemoglobin stable the patient can be possibly discharge in the next couple of days. Will continue monitor closely. Acute on chronic renal failure, stage III: Continue fluids. Will monitor closely. Severe advanced ascites with history of multiple recurrent paracentesis: Paracentesis ordered for today. Patient will get albumin IV after paracentesis. Alcohol/tobacco abuse: Continue to address lifestyle modification education including alcohol and tobacco cessation. Orthostatic hypotension on midodrine: Continue with midodrine. Time Spent Managing Pts Care (In Minutes): 55
[2018-10-08 19:17] LABS: Hematocrit 21.6 % (36.0-45.0)
[2018-10-08] MEDS ORDERED: TRAZODONE 50 MG TABLET PO ONE (22:51)
[2018-10-09 05:55] LABS: Absolute Lymphocytes (CBC) 0.2 K/uL (0.7-4.9); Absolute Monocytes 0.4 K/uL (0.1-1.3); Basophils % 1.4 % (0-1.3); Eosinophils % 6.2 % (0-4.4); Hematocrit 26.5 % (36.0-45.0); MPV 9.6 fL (7.6-11.3); Monocytes % 9.4 % (3.3-12.3); RBC Red Blood Cell Count 2.92 M/uL (3.86-4.86)
[2018-10-09 05:58] LABS: Albumin 3.4 g/dL (3.4-5.0); Bilirubin Total 3.3 mg/dL (0.2-1.0); Magnesium 2.1 mg/dL (1.8-2.4); Protein, Total 5.7 g/dL (6.4-8.2)
[2018-10-09] MEDS: NA CHLORIDE 0.9% 1,000 ML IV SCH (06:00)
[2018-10-09 07:02] VITALS: BMI 22.8
[2018-10-09] MEDS: OCTREOTIDE 500 MCG in NA CHLORIDE 0.9% 500 ML IV SCH (07:07)
[2018-10-09] MEDS: PANTOPRAZOLE INJ 80 MG in NA CHLORIDE 0.9% 250 ML IV SCH (07:08)
[2018-10-09] MEDS: CEFTRIAXONE/SWI 1gm 1 GM/10 ML SYR IV SCH (08:30)
[2018-10-09] MEDS: MIDODRINE HCL 5 MG TABLET PO SCH ×3 (08:30→22:14)
[2018-10-09] MEDS: FOLIC ACID 1 MG, MULTIVITAMINS INJ 10 ML, THIAMINE HCL 100 MG in NA CHLORIDE 0.9% 1,000 ML IV SCH (08:34)
[2018-10-09 08:59] LABS: Anisocytosis 1+; Blood Morphology Comment NOTED (NOT SEEN); Macrocytosis 1+; Platelet Estimate DECR
[2018-10-09] MEDS ORDERED: DIPHENHYDRAMINE 25 MG TAB/CAP PO PRN (09:33)
--- NOTE | 2018-10-09 09:42 | P.PN ---
Subjective Date of Service: 10/09/18 Primary Care Provider: None Chief Complaint: GIB Subjective: Improving (No nausea, vomiting, melena or rectal bleeding. No abdominal pain noted. Patient desires more to eat.) Physical Examination - Vital Signs Temperature: 97.1 F Blood Pressure: 107/63 Pulse: 79 Respirations: 10 Pulse Ox (%): 99 - Physical Exam General: Alert, In no apparent distress, Oriented x3, Cooperative HEENT: Atraumatic Neck: Supple Respiratory: Clear to auscultation bilaterally, Normal air movement Cardiovascular: Normal pulses, Regular rate/rhythm Gastrointestinal: Normal bowel sounds, Soft and benign, Non-distended, No tenderness, No masses, No rebound, No guarding, Ascites Integumentary: No tenderness/swelling, No erythema, No warmth, No cyanosis Neurological: Normal speech, Normal strength at 5/5 x4 extr, Normal tone, Normal affect - Studies Medications List Reviewed: Yes Assessment & Plan Discharge Plan: Home Plan to discharge in: 24 Hours Physician Review Additional Text: Impression: Acute on chronic anemia with acute recurrent upper GI bleed secondary to esophageal varices bleed with gastric ulcer status post banding with history of alcoholic cirrhosis and esophageal varices complicated with alcohol abuse Acute on chronic renal failure, stage III Severe advanced ascites with history of multiple recurrent paracentesis Alcohol/tobacco abuse Orthostatic hypotension on midodrine Plan: Acute on chronic anemia with acute recurrent upper GI bleed secondary to esophageal varices bleed with gastric ulcer status post banding with history of alcoholic cirrhosis and esophageal varices complicated with alcohol abuse: Patient continues to do well. H&H now stable. Will transfer the patient to the floor. Will advance diet to GI soft. Will restart home medication including lactulose, Xifaxan. Will change Protonix to oral b.i.d.. Will discontinue octreotide. Continue IV Rocephin. Anticipate discharge tomorrow if significantly improved. Will have physical therapy ambulate. Discontinue IV fluids. Restart diuretic therapy. Patient will require TIPS procedure as an outpatient. She understands this. She also understands that she needs to quit alcohol. She put plans in place to quit alcohol entirely. This will need to be readdressed and monitored closely as an outpatient. Acute on chronic renal failure, stage III: Much improved. Discontinue IV fluids. Severe advanced ascites with history of multiple recurrent paracentesis: Paracentesis done yesterday. Will monitor closely. Alcohol/tobacco abuse: Continue to address lifestyle modification education including alcohol and tobacco cessation. Patient plans to quit alcohol entirely. Orthostatic hypotension on midodrine: Continue with midodrine. Time Spent Managing Pts Care (In Minutes): 55
[2018-10-09] MEDS: HYDROCODONE/APAP 7.5/325 MG TAB PO PRN (13:06)
[2018-10-09] MEDS: PANTOPRAZOLE 40MG TABLET PO SCH (17:27)
[2018-10-09] MEDS ORDERED: NACHLORIDE 0.45% 500 ML IV SCH (20:45)
[2018-10-09] MEDS ORDERED: MELATONIN 5 MG TABLET PO SCH (21:00)
[2018-10-09] MEDS ORDERED: Rifaximin 550 MG Tab PO SCH (21:00)
[2018-10-09] MEDS ORDERED: NICOTINE 7 MG/PAT TD SCH (22:00)
[2018-10-09] MEDS: FERROUS SULFATE 325 MG TAB PO SCH (22:15)
[2018-10-10 06:43] LABS: Absolute Lymphocytes (CBC) 0.2 K/uL (0.7-4.9); Absolute Monocytes 0.5 K/uL (0.1-1.3); Absolute Neutrophil 4.3 K/uL (1.8-8.0); Basophils % 1.3 % (0-1.3); Eosinophils % 5.3 % (0-4.4); Hematocrit 27.5 % (36.0-45.0); Lymphocytes % 4.6 % (15.3-44.8); MPV 9.6 fL (7.6-11.3); Monocytes % 9.1 % (3.3-12.3); RBC Red Blood Cell Count 2.99 M/uL (3.86-4.86)
[2018-10-10 06:53] LABS: Albumin 3.3 g/dL (3.4-5.0); Bilirubin Total 1.7 mg/dL (0.2-1.0); Magnesium 1.9 mg/dL (1.8-2.4); Potassium 4.2 mmol/L (3.5-5.1); Protein, Total 5.9 g/dL (6.4-8.2)
[2018-10-10] MEDS: HYDROCODONE/APAP 7.5/325 MG TAB PO PRN (08:44)
[2018-10-10] MEDS: CEFTRIAXONE/SWI 1gm 1 GM/10 ML SYR IV SCH (08:45)
[2018-10-10] MEDS: MIDODRINE HCL 5 MG TABLET PO SCH ×2 (08:45→13:25)
[2018-10-10] MEDS: FERROUS SULFATE 325 MG TAB PO SCH (08:46)
[2018-10-10] MEDS: PANTOPRAZOLE 40MG TABLET PO SCH (08:46)
[2018-10-10] MEDS ORDERED: PYRIDOXINE (VIT B6) 50 MG TAB PO SCH (09:00)
[2018-10-10] MEDS ORDERED: FUROSEMIDE 20 MG TABLET PO SCH (09:00)
[2018-10-10] MEDS ORDERED: SPIRONOLACTONE 25 MG TABLET PO SCH (09:00)
[2018-10-10] MEDS ORDERED: LACTULOSE 20 GM/30 ML UCUP PO SCH (09:00)
[2018-10-10] MEDS ORDERED: THIAMINE HCL 100 MG TABLET PO SCH (09:00)
[2018-10-10] MEDS ORDERED: NICOTINE 7 MG/PAT TD SCH (09:00)
[2018-10-10] MEDS ORDERED: FOLIC ACID 1 MG TABLET PO SCH (09:00)
--- NOTE | 2018-10-10 09:58 | P.DS ---
Admission Date: 10/07/18 Discharge Date: 10/10/18 Primary Care Provider: None; Richard Solis Disposition: ROUTINE DISCHARGE Discharge Condition: GOOD Reason for Admission: GIB Consultations: GI-Dr. Solis Procedures: EGD: Findings: Duodenum: No gross lesion seen in the brief view of the duodenum. Stomach: Evidence of moderate portal hypertensive gastropathy. No bleeding. Retroflexion did not reveal any definitive gastric varices. Esophagus: In the mid and distal esophagus, at least grade 3 varices with significant scarring were seen. Two large ulcers were visualized at the site of prior bandings. The more proximal ulcer actually had bleeding from its margin, which was quite significant, and nearby varix also was seen right next to the ulcer. Ideally, this would be treated with TIPS; however, we did not have that ability at least at this time. Therefore, decision was taken to try banding first. One band was successfully placed more distal to this bleeding varix, and then another band was attempted. This was accomplished with some difficulty as there was significant scarring, but we were able to get a good whole of the varix, and banded. This resulted in the bleeding stopping completely. Complications: None. Tolerance To Anesthesia: Excellent. Postoperative Diagnosis: Esophageal varices with bleeding from varix as well as ulcerated area. Plan: Continue IV PPI, octreotide, and antibiotics. I also briefly discussed the case with the Liver Team. They agreed that the TIPS would be the way to go if there is any further evidence of rebleeding noted. I will communicate this to the primary team. We will keep the patient Paracentesis: FINDINGS: Informed consent was obtained and time-out was performed. Patient's abdomen was prepped and draped in the usual sterile fashion. 1% lidocaine was used for local anesthetic purposes. A small skin incision was made along the right lower quadrant. A paracentesis catheter was guided into the peroneal cavity under sonographic guidance. A small amount of fluid was sent for requested lab studies. A large volume paracentesis was performed. The patient tolerated the procedure well. Following the procedure, the patient transferred back to the ICU. IMPRESSION: Successful ultrasound-guided paracentesis. Medical problem list: Acute on chronic anemia with acute recurrent upper GI bleed secondary to esophageal varices bleed with ulcer status post EGD showing moderate portal hypertensive gastropathy, grade 3 varices with significant scarring, 2 large ulcers with prior banding, and proximal ulcer with bleeding nearby varix that required banding secondary to alcoholic cirrhosis and alcohol abuse Acute on chronic renal failure, stage II Severe advanced ascites with history of multiple recurrent paracentesis Alcohol/tobacco abuse Orthostatic hypotension on midodrine Brief History of Present Illness: 48-year-old female presented emergency room with hematemesis and melena. Patient found to have recurrent upper GI bleed. Patient with history of alcoholic cirrhosis, esophageal varices and prior banding. Patient was severely anemic. Patient admitted to alcohol use. The patient was admitted to ICU for further treatment. Hospital Course: Patient presented with acute on chronic anemia with acute recurrent upper GI bleed secondary to esophageal varices bleeding with ulcer. Patient was admitted to ICU. Patient was started on IV octreotide, Rocephin and Protonix. Patient required multiple transfusions. Patient was seen and evaluated by GI. Patient had EGD showing moderate portal hypertensive gastropathy, grade 3 varices with significant scarring, 2 large ulcers with prior banding, and proximal ulcer with bleeding nearby varix. That ulcer required banding. Bleeding stopped. After multiple transfusions, hemoglobin stabilized. Patient was transitioned to the floor with good recovery. If her bleeding had continued then she would have required transfer for TIPS procedure. GI did speak to the liver center/assembler wet wash-Dr. Doss, who made recommendations. Now that her bleeding has stopped, patient will need TIPS procedure as an outpatient. Patient was counseled heavily on alcohol cessation. Patient plans to quit. She is making arrangements so that she and family members do not bring alcohol to her home. She understands that if she continues to drink alcohol this may compromise her significantly including . If she returns for recurrent upper GI bleed, patient will need to be transferred to liver center for TIPS procedure as the patient has extensive scarring and banding to the esophageal area. This was recommended by GI and liver center. At discharge she will continue with Protonix 40 mg 1 pill twice daily. She will continue with Xifaxan 550 mg one pill twice daily and lactulose 30 g daily to maintain 3-4 bowel movements a day, medication may need to be adjusted. Patient will also continue with Benadryl 50 mg at bedtime as needed for itching , folic acid 1 mg daily, Aldactone 25 mg daily, thiamine 100 mg daily, and iron 325 mg 1 pill twice daily. Patient will be provided with tramadol 50 mg daily as needed for pain. Alcohol cessation to be enforced. Recommend to follow up with GI in 1 week to make arrangements for outpatient TIPS procedure. Patient to make arrangements to establish care with a PCP to continue her care. Recommend to recheck lab-CBC and CMP in 1-2 weeks to monitor her progress. Patient with acute on chronic renal failure. Patient received IV fluids during her stay. This improved. Patient now at baseline. Patient with severe advanced ascites. She has had multiple recurrent paracentesis. During the course of her stay patient received paracentesis. Patient received IV albumin after the procedure. Culture negative. She will need to make arrangements with a new PCP or with GI to continue with outpatient paracentesis. Patient has required paracentesis every 1-2 weeks. Hopefully this will resolve once TIPS procedure has been done. TIPS procedure does increase risk for hepatic encephalopathy. This will need to be monitored closely. Patient will continue with Aldactone 25 mg daily. Patient with orthostatic hypotension on midodrine. Patient will continue with midodrine 5 mg 1 pill 3 times a day. Fall precautions in place. Vital Signs/Physical Exam: Temp Pulse Resp BP Pulse Ox 99.0 F 90 16 87/50 L 96 10/10/18 08:00 10/10/18 08:43 10/10/18 08:00 10/10/18 08:43 10/10/18 08:00 General: Alert, In no apparent distress, Oriented x3, Cooperative HEENT: Atraumatic Neck: Supple Respiratory: Clear to auscultation bilaterally, Normal air movement Cardiovascular: Normal pulses, Regular rate/rhythm Gastrointestinal: Normal bowel sounds, Soft and benign, Non-distended, No tenderness, No masses, No rebound, No guarding, Ascites Musculoskeletal: No erythema, No tenderness, No warmth Integumentary: No erythema, No warmth, No cyanosis Neurological: Normal speech, Normal strength at 5/5 x4 extr, Normal tone, Normal affect Laboratory Data at Discharge: WBC 5.3 K/uL (4.3-10.9) D 10/10/18 06:13 Hgb 9.2 g/dL (12.0-15.0) L 10/10/18 06:13 Hct 27.5 % (36.0-45.0) L 10/10/18 06:13 Plt Count 103 K/uL (152-406) L 10/10/18 06:13 PT 17.0 SECONDS (9.5-12.5) H 10/06/18 23:20 INR 1.46 10/06/18 23:20 Sodium 142 mmol/L (136-145) 10/10/18 06:13 Potassium 4.2 mmol/L (3.5-5.1) 10/10/18 06:13 BUN 16 mg/dL (7-18) 10/10/18 06:13 Creatinine 0.74 mg/dL (0.55-1.3) 10/10/18 06:13 Glucose 111 mg/dL (74-106) H 10/10/18 06:13 Magnesium 1.9 mg/dL (1.8-2.4) 10/10/18 06:13 Total Bilirubin 1.7 mg/dL (0.2-1.0) H 10/10/18 06:13 AST 39 U/L (15-37) H 10/10/18 06:13 ALT 23 U/L (12-78) 10/10/18 06:13 Alkaline Phosphatase 107 U/L (45-117) 10/10/18 06:13 Home Medications: Diphenhydramine [Benadryl*] 2 tab PO BEDTIME PRN 04/06/18 Ondansetron HCl [Zofran] 4 mg PO Q8H PRN 04/06/18 Melatonin/Pyridoxine [Melatonin 5 mg Tablet] 10 mg PO BEDTIME 09/10/18 Pyridoxine [Vitamin B-6*] 100 mg PO DAILY 09/10/18 Ferrous Sulfate [Iron] 325 mg PO BID #60 tablet 09/27/18 Folic Acid 1 mg PO DAILY #30 tablet 09/27/18 Lactulose [Cephulac*] 30 ml PO DAILY #1 bottle 09/27/18 Pantoprazole [Protonix Tab*] 40 mg PO BIDAC #60 tab 09/27/18 Rifaximin [Xifaxan] 550 mg PO BID #60 tablet 09/27/18 Spironolactone [Aldactone*] 25 mg PO DAILY #30 tab 09/27/18 Thiamine HCl [Vitamin B-1*] 100 mg PO DAILY #30 tablet 09/27/18 Midodrine HCl [Proamatine*] 5 mg PO TID #90 tab 10/10/18 Trazodone [Desyrel*] 50 mg PO BEDTIME PRN #15 tablet MDD 1 10/10/18 New Medications: Midodrine HCl [Proamatine*] 5 mg PO TID #90 tab Trazodone [Desyrel*] 50 mg PO BEDTIME PRN #15 tablet MDD 1 PRN Reason: Pain Scale 2-4 (Mild) Patient Discharge Instructions: 1. Patient will establish care with a PCP and follow up with GI as directed. 2. Patient presented with acute on chronic anemia with acute recurrent upper GI bleed secondary to esophageal varices bleeding with ulcer. Patient was admitted to ICU. Patient was started on IV octreotide, Rocephin and Protonix. Patient required multiple transfusions. Patient was seen and evaluated by GI. Patient had EGD showing moderate portal hypertensive gastropathy, grade 3 varices with significant scarring, 2 large ulcers with prior banding, and proximal ulcer with bleeding nearby varix. That ulcer required banding. Bleeding stopped. After multiple transfusions, hemoglobin stabilized. Patient was transitioned to the floor with good recovery. If her bleeding had continued then she would have required transfer for TIPS procedure. GI did speak to the liver center/assembler wet wash-Dr. Doss, who made recommendations. Now that her bleeding has stopped, patient will need TIPS procedure as an outpatient. Patient was counseled heavily on alcohol cessation. Patient plans to quit. She is making arrangements so that she and family members do not bring alcohol to her home. She understands that if she continues to drink alcohol this may compromise her significantly including . If she returns for recurrent upper GI bleed, patient will need to be transferred to liver center for TIPS procedure as the patient has extensive scarring and banding to the esophageal area. This was recommended by GI and liver center. At discharge she will continue with Protonix 40 mg 1 pill twice daily. She will continue with Xifaxan 550 mg one pill twice daily and lactulose 30 g daily to maintain 3-4 bowel movements a day, medication may need to be adjusted. Patient will also continue with Benadryl 50 mg at bedtime as needed for itching, folic acid 1 mg daily, Aldactone 25 mg daily, thiamine 100 mg daily, and iron 325 mg 1 pill twice daily. Patient will be provided with tramadol 50 mg daily as needed for pain. Alcohol cessation to be enforced. Recommend to follow up with GI in 1 week to make arrangements for outpatient TIPS procedure. Patient to make arrangements to establish care with a PCP to continue her care. Recommend to recheck lab-CBC and CMP in 1-2 weeks to monitor her progress. 3. Patient with acute on chronic renal failure. Patient received IV fluids during her stay. This improved. Patient now at baseline. 4. Patient with severe advanced ascites. She has had multiple recurrent paracentesis. During the course of her stay patient received paracentesis. Patient received IV albumin after the procedure. Culture negative. She will need to make arrangements with a new PCP or with GI to continue with outpatient paracentesis. Patient has required paracentesis every 1-2 weeks. Hopefully this will resolve once TIPS procedure has been done. TIPS procedure does increase risk for hepatic encephalopathy. This will need to be monitored closely. Patient will continue with Aldactone 25 mg daily. 5. Patient with orthostatic hypotension on midodrine. Patient will continue with midodrine 5 mg 1 pill 3 times a day. Fall precautions in place. Diet: GI soft diet Activity: Fall precautions Time spent managing pt's care (in minutes): 55
[2018-10-10 10:00] VITALS: O2SAT 96
[2018-10-10] MEDS: ONDANSETRON 4 MG/2 ML VIAL IV PRN (10:05)
[2018-10-10 12:37] VITALS: BP 84/53; TEMP 98.8
== END 2018-10-10 14:42 | disposition home or self-care (01) | DRG 441 ==
LOC: ER 23:13 → ERHOLD 10-07 03:04 → 3RD-ICU 10-07 07:56 → 4TH 10-09 11:30
PROVIDERS: ADMIT Internal Medicine; ATTEND Family Medicine
PROC: 30233K1 Transfusion of Nonautologous Frozen Plasma into Peripheral Vein, Percutaneous Approach (ICD-10-PCS; 2018-10-07)
PROC: 30233N1 Transfusion of Nonautologous Red Blood Cells into Peripheral Vein, Percutaneous Approach (ICD-10-PCS; 2018-10-07)
PROC: 06L38CZ Occlusion of Esophageal Vein with Extraluminal Device, Via Natural or Artificial Opening Endoscopic (ICD-10-PCS; principal; 2018-10-07 08:45)
PROC: 0W9G3ZX Drainage of Peritoneal Cavity, Percutaneous Approach, Diagnostic (ICD-10-PCS; 2018-10-08)
DX: K76.6 Portal hypertension (principal); I85.11 Secondary esophageal varices with bleeding; K22.11 Ulcer of esophagus with bleeding; D62 Acute posthemorrhagic anemia; N17.9 Acute kidney failure, unspecified; K31.89 Other diseases of stomach and duodenum; K70.31 Alcoholic cirrhosis of liver with ascites; F10.20 Alcohol dependence, uncomplicated; D50.0 Iron deficiency anemia secondary to blood loss (chronic); I95.1 Orthostatic hypotension; F17.210 Nicotine dependence, cigarettes, uncomplicated; E87.6 Hypokalemia; N18.3 Chronic kidney disease, stage 3 (moderate)
CPT/HCPCS: 36415; 49083; 71045; 80048; 80053; 80076; 80320; 83735; 83880; 84132; 84484; 85014; 85018; 85025; 85610; 86850; 86900; 86901; 87070; 88108; 88305; 89050; 93005; 96372; 99285; C9113; J0696; J1940; J2270; J2354; J2405; J2704; J3411; J3430; J7030; P9016; P9017; P9047; P9059

== ENCOUNTER 2018-12-06 04:20 | Emergency (ER) | payer MEDICAID ==
--- OUTSIDE RECORDS SUMMARY | 2018-12-06 04:23 | XMS REPORT | Clinical Summary ---
:1970 Author Organization [facility] Address [address] [place] [address] Care Team Providers Name Role Phone Alison [...] Sr., MD Sanders, Sunny Buchanan MD after 12/05/2017 Social History Tobacco Use Types Packs/Day Years [...] Taken Blood Pressure 109/68 08/08/2018 4:30 PM [facility] Pulse 105 08/08/2018 4:30 PM [facility] Temperature 36.6 C (97.9 F) 08/08/2018 3:40 PM [facility] Respiratory Rate 18 08/08/2018 4:30 PM [facility] Oxygen Saturation 100% 08/08/2018 3:40 PM [facility] Inhaled Oxygen Concentration - - Weight 59 kg (130 lb) 08/04/2018 4:30 AM [facility] Height 167.6 cm (5' 6") 08/04/2018 4:30 AM [facility] Body Mass Index 20.98 08/04/2018 4:30 AM [facility] Plan of Treatment Health Maintenance Due Date Last Done Comments CERVICAL CANCER SCREENING 1990 INFLUENZA VACCINE 03/05/2019 Procedures Procedure Name Priority Date/Time Associated Comments Diagnosis ESTIMATED GFR Routine 08/08/2018 2:25 Results for this PM [facility] procedure are in the results section. BASIC METABOLIC PANEL Routine 08/08/2018 2:25 Results for this PM [employer] [facility] procedure are in the results section. US ABDOMINAL Routine 08/08/2018 9:50 Results for this PARACENTESIS IMAGING AM [employer] procedure are in the results section. ESTIMATED GFR Routine 08/07/2018 4:40 Results for this AM [employer] procedure are in the results section. BASIC METABOLIC PANEL Routine 08/07/2018 4:40 Results for this AM [employer] procedure are in the results section. VENOUS BLOOD GAS Routine 08/06/2018 6:42 Results for this PM [employer] procedure are in the results section. US ABDOMINAL Routine 08/06/2018 2:30 Results for this PARACENTESIS IMAGING PM [employer] procedure are in the results section. SMEAR REVIEW Routine 08/06/2018 6:45 Results for this AM [employer] procedure are in the results section. ESTIMATED GFR Routine 08/06/2018 6:45 Results for this AM [employer] procedure are in the results section. LACTIC ACID LEVEL Routine 08/06/2018 6:45 Results for this AM [employer] procedure are in the results section. HC COMPLETE BLD COUNT Routine 08/06/2018 6:45 Results for this W/AUTO DIFF AM [employer] procedure are in the results section. PROTHROMBIN TIME WITH Routine 08/06/2018 6:45 Results for this INR AM [employer] procedure are in the results section. BASIC METABOLIC PANEL Routine 08/06/2018 6:45 Results for this AM [employer] procedure are in the results section. PARTIAL THROMBOPLASTIN Routine 08/06/2018 6:45 Results for this TIME (PTT) AM [employer] procedure are in the results section. LACTIC ACID LEVEL, Timed 08/05/2018 6:00 Results for this SEPSIS - NOW AND REPEAT PM [employer] procedure are in 2X EVERY 3 HOURS the results section. LACTIC ACID LEVEL, Timed 08/05/2018 3:25 Results for this SEPSIS - NOW AND REPEAT PM [employer] procedure are in 2X EVERY 3 HOURS the results section. SMEAR REVIEW Routine 08/05/2018 4:35 Results for this AM [employer] procedure are in the results section. ESTIMATED GFR Routine 08/05/2018 4:35 Results for this AM [employer] procedure are in the results section. AMMONIA LEVEL Routine 08/05/2018 4:35 Results for this AM [employer] procedure are in the results section. BASIC METABOLIC PANEL Routine 08/05/2018 4:35 Results for this AM [employer] procedure are in the results section. HC COMPLETE BLD COUNT Routine 08/05/2018 4:35 Results for this W/AUTO DIFF AM [employer] procedure are in the results section. US ABDOMINAL STAT 08/04/2018 1:35 Results for this PARACENTESIS IMAGING PM [employer] procedure are in the results section. XR CHEST 1 VW PORTABLE STAT 08/04/2018 5:19 Results for this AM [employer] procedure are in the results section. SMEAR REVIEW STAT 08/04/2018 5:00 Results for this AM [employer] procedure are in the results section. AMMONIA LEVEL STAT 08/04/2018 5:00 Results for this AM [employer] procedure are in the results section. ESTIMATED GFR STAT 08/04/2018 5:00 Results for this AM [employer] procedure are in the results section. MAGNESIUM LEVEL STAT 08/04/2018 5:00 Results for this AM [employer] procedure are in the results section. PARTIAL THROMBOPLASTIN STAT 08/04/2018 5:00 Results for this TIME (PTT) AM [employer] procedure are in the results section. PROTHROMBIN TIME WITH STAT 08/04/2018 5:00 Results for this INR AM [employer] procedure are in the results section. HC COMPLETE BLD COUNT STAT 08/04/2018 5:00 Results for this W/AUTO DIFF AM [employer] procedure are in the results section. COMPREHENSIVE METABOLIC STAT 08/04/2018 5:00 Results for this PANEL AM [employer] procedure are in the results section. after 12/05/2017 Results Estimated GFR (08/08/2018 2:25 PM [employer])Only the most recent of5 resultswithin the time period is included. Estimated GFR 59 (A) mL/min/1.73 m2 [facility] Comment: [facility] CatergoryUnitsInterpretation G1 >=90 Normal or high G2 60-89Mildly decreased [id number] to moderately decreased [id number] to severely decreased G4 15-29Severely decreased G5 <15Kidney failure The eGFR was calculated using the Chronic Kidney Disease Epidemiology Collaboration (CKD-EPI) equation. Interpretation is based on recommendations of the National Kidney Foundation-Kidney Disease Outcomes Quality Initiative (NKF-KDOQI) published in 2014. Specimen Plasma specimen Performing Organization Address City/State/Zipcode [place] [address], [address] [place] [address] PATHOLOGY AND GENOMIC S MEDICINE [facility] [address] [place] [address] [facility] Basic metabolic panel (08/08/2018 2:25 PM [facility])Only the most recent of4 resultswithin the time period is included. Sodium 139 135 - 148 mEq/L [facility] Potassium 3.7 3.5 - 5.0 mEq/L [facility] Chloride 107 98 - 112 mEq/L [facility] CO2 17 (L) 24 - 31 mEq/L [facility] Anion gap 15 7 - 15 mEq/L [facility] BUN 20 6 - 20 mg/dL [facility] Creatinine 1.10 (H) 0.50 - 0.90 mg/dL [facility] Glucose 105 (H) 65 - 99 mg/dL [facility] Calcium 9.2 8.3 - 10.2 mg/dL [facility] Specimen Plasma specimen Performing Organization Address City/State/[place]code [place] [address], [address] [place] [address] PATHOLOGY AND GENOMIC S MEDICINE [facility] THE [address] [place] [address] [facility] US Abdominal Paracentesis Imaging (08/08/2018 9:50 AM [facility])Only the most recent of3 resultswithin the time period is included. Narrative Performed At [facility] Ultrasound-guided paracentesis. Clinical [...] anesthetic. Using real-time ultrasound guidance, a 5 Argentine Yueh catheter was advanced successfully into the peritoneal cavity with return of cloudy yellow ascites. A total of 5000 mL of fluid was removed. The Yueh catheter was removed and hemostasis was achieved with manual compression. The patient tolerated the procedure well. Complications None. Impression: Successful ultrasound-guided paracentesis with removal of 5000 ml of cloudy yellow ascites. [id number] Procedure Note Hm Interface, Radiology Results Incoming - 08/08/2018 12:03 PM [facility] [employer] [facility] Procedure Ultrasound-guided paracentesis. Clinical Indication Ascites. Anesthesia [...] anesthetic. Using real-time ultrasound guidance, a 5 Argentine Yueh catheter was advanced successfully into the peritoneal cavity with return of cloudy yellow ascites. A total of 5000 mL of fluid was removed. The Yueh catheter was removed and hemostasis was achieved with manual compression. The patient tolerated the procedure well. Complications None. Impression: Successful ultrasound-guided paracentesis with removal of 5000 ml of cloudy yellow ascites. [facility]-[id number] Performing Organization Address City/[facility] Phone Number [facility] [address] [place] [address] Venous blood gas (08/06/2018 6:42 PM [facility] [employer]) pH, venous 7.41 7.32 - 7.42 [facility] pCO2, venous 24 (L) 45 - 51 mmHg [facility] pO2, venous 75 (H) 25 - 40 mmHg [facility] Base excess, venous -9 (L) -2 - 2 meq/L [facility] O2 saturation, venous 95 (H) 40 - 70 % [facility] Bicarbonate, venous 14.5 (L) 21.0 - 28.0 mmol/L [facility] Specimen Blood Performing Organization Address City/[facility] [place] Number [place] [address], [address] [place] [address] PATHOLOGY AND GENOMIC S MEDICINE [facility] THE [address] [place] [address] [facility] Smear review (08/06/2018 6:45 AM [employer])Only the most recent of3 resultswithin the time period is included. Platelet slide review Decreased (A) [facility] Anisocytosis Moderate [facility] Tear drop cells Occasional [facility] Schistocytes Occasional [facility] Spherocytes Occasional [facility] Performing Organization Address City/[facility] Phone Number [facility] DEPARTMENT OF [facility] [place] [address] PATHOLOGY [facility] THE [address] Partial thromboplastin time, activated (08/06/2018 6:45 AM [employer])Only the most recent of2 resultswithin the time period is included. PTT 42.1 (H) 23.0 - 36.0 sec [facility] THE Comment: [facility] PTT therapeutic range for unfractionated heparin is 61.0-112.0 seconds which corresponds to Anti-Xa 0.3-0.7 U/ml. Specimen Blood Performing Organization Address [facility] Phone Number [facility] DEPARTMENT OF [facility] [address] Prothrombin time with INR (08/06/2018 6:45 AM [employer])Only the most recent of2 resultswithin the time period is included. Prothrombin time 15.2 (H) 11.5 - 14.5 sec [facility] INR 1.2 [facility] THE Comment: [facility] The International Normalized Ratio (INR) is a therapeutic monitoring tool for patients who are stable on oral anticoagulant therapy. An INR of 2.0-3.0 is suggested for deep vein thrombosis/pulmonary embolism. Specimen Blood Performing Organization Address [facility] Phone Number [facility] DEPARTMENT OF [facility] [address] [address] [address] CBC with platelet and differential (08/06/2018 6:45 AM [employer])Only the most recent of3 resultswithin the time period is included. WBC 3.27 (L) 4.50 - 11.00 k/uL [facility] RBC 2.52 (L) 4.20 - 5.50 m/uL [facility] HGB 7.7 (L) 12.0 - 16.0 g/dL [facility] HCT 24.6 (L) 37.0 - 47.0 % [facility] MCV 97.6 82.0 - 100.0 fL [facility] MCH 30.6 27.0 - 34.0 pg [facility] MCHC 31.3 31.0 - 37.0 g/dL [facility] RDW - SD 72.1 (H) 37.0 - 55.0 fL [facility] MPV 10.3 8.8 - 13.2 fL [facility] Platelet count 115 (L) 150 - 400 k/uL [facility] Nucleated RBC 0.00 /100 WBC [facility] Neutrophils 72.2 (H) 39.0 - 69.0 % [facility] Lymphocytes 6.7 (L) 25.0 - 45.0 % [facility] Monocytes 14.4 (H) 0.0 - 10.0 % [facility] Eosinophils 4.9 0.0 - 5.0 % [facility] Basophils 1.5 (H) 0.0 - 1.0 % [facility] Immature granulocytes 0.3Comment: "Immature 0.0 - 1.0 % [facility] granulocytes" [facility] (promyelocytes, myelocytes, metamyelocytes) Specimen Blood Performing Organization Address City/[facility] Phone Number [place] [phone], [address] [place] [address] PATHOLOGY AND [employer] S MEDICINE [facility] THE [address] Lactic acid level (08/06/2018 6:45 AM [employer]) Lactic acid 1.6 0.5 - 2.2 mmol/L [facility] Specimen Plasma specimen Performing Organization Address City/[facility] Phone Number [place] [address], [address] [place] [address] PATHOLOGY AND GENOMIC S MEDICINE [facility] THE [address] [place] [phone] Lactic acid level, SEPSIS - Now and repeat 2x every 3 hours (08/05/2018 6:00 PM [employer])Only the most recent of2 resultswithin the time period is included. Lactic acid 1.5 0.5 - 2.2 mmol/L [facility] Specimen Plasma specimen Performing Organization Address City/State/Zipcode Phone Number [facility] [address], [address] [place] [address] PATHOLOGY AND GENOMIC S MEDICINE [facility] THE [address] [place] [address] [facility] Ammonia level (08/05/2018 4:35 AM [employer])Only the most recent of2 resultswithin the time period is included. Ammonia 276 (H) 11 - 51 umol/L [facility] Specimen Blood Performing Organization Address [facility] Phone Number [facility] [address], [address] [place] [address] PATHOLOGY AND GENOMIC S MEDICINE [facility] THE [address] [place] [address] [facility] XR Chest 1 Vw Portable (08/04/2018 5:19 AM [employer]) Narrative Performed At Examination:XR CHEST 1 VW PORTABLE [facility] Clinical History:sob Comparison: None. Technique: Single frontal view of the chest is obtained. Findings: Low lung volume with vascular crowding is noted. The heart size is normal. No pleural effusion is seen. Impression: Low lung volume but no acute infiltrate. [facility]-[id number] Procedure Note Hm Interface, Radiology Results Incoming - 08/04/2018 5:46 AM [employer] Examination: XR CHEST 1 VW PORTABLE Clinical History: sob Comparison: None. Technique: Single frontal view of the chest is obtained. Findings: Low lung volume with vascular crowding is noted. The heart size is normal. No pleural effusion is seen. Impression: Low lung volume but no acute infiltrate. [facility]-[id number] Performing Organization Address City/[facility]/Zipcode Phone Number [facility] [address] [place] [address] Magnesium level (08/04/2018 5:00 AM [employer]ER) Magnesium 1.9 1.6 - 2.6 mg/dL [facility] Specimen Plasma specimen Performing Organization Address City/[facility]/Zipcode Phone Number [facility] [address], [address] [place] [address] PATHOLOGY AND GENOMIC S MEDICINE [facility] THE [address] [place] [address] [facility] Comprehensive metabolic panel (08/04/2018 5:00 AM [employer]ER) Sodium 137 135 - 148 mEq/L [facility] Potassium 3.8 3.5 - 5.0 mEq/L [facility] Chloride 109 98 - 112 mEq/L [facility] CO2 13 (LL) 24 - 31 mEq/L [facility] THE Comment: [facility] CO2 Results called to and read back by FISH VIEYRA RN/ED at [id number] by ROXANNA. Anion gap 15 7 - 15 mEq/L [facility] BUN 23 (H) 6 - 20 mg/dL [facility] Creatinine 1.65 (H) 0.50 - 0.90 mg/dL [facility] Glucose 94 65 - 99 mg/dL [facility] Calcium 8.6 8.3 - 10.2 mg/dL [facility] Protein 7.0 6.3 - 8.3 g/dL [facility] THE Comment: [facility] [place] 4.6-7.0 g/dL 1 week 4.4-7.6 g/dL 7 months-1year5.1-7.3 g/dL 1-2 years5.6-7.5 g/dL >3 years6.0-8.0 g/dL 18-150 6.3-8.3 g/dL Albumin 3.1 (L) 3.5 - 5.0 g/dL [facility] A/G ratio 0.8 0.7 - 3.8 [facility] Alkaline phosphatase 147 (H) 35 - 104 U/L [facility] AST 66 (H) 10 - 35 U/L [facility] ALT 36 5 - 50 U/L [facility] Total bilirubin 1.0 0.0 - 1.2 mg/dL [facility] Specimen Plasma specimen Performing Organization Address City/State/[place]code [place] [address], [address] [place] [address] PATHOLOGY AND GENOMIC S MEDICINE [facility] [address] [place] [address] [facility] after 12/05/2017 Insurance Payer Benefit Plan / Group Subscriber ID Type Phone Address GARCIA GARCIA [employer] DOMENICA xxxxxxxxx HMO Advance Directives Patient has advance care planning documents on file. For more information, please contact:Keith Mcwilliams[address] [place] [address]
--- OUTSIDE RECORDS SUMMARY | 2018-12-06 04:25 | XMS REPORT | Clinical Summary ---
:1970 Author Organization [facility] Address [address] [place] [address] Care Team Providers Name Role Phone Tray [...] total) by mouth 2 (two) times daily. omeprazole TAKE ONE 2 09/09/2017 02/10/2018 Discontinued [...] test for immunity to both viruses - [facility] recommendations will follow. Portal hypertension 11/27/2017 Last [...] Other ascites In 06/13/2018 Telephone Case Management [place], hepatic Enriqueta D, encephalopathy RN (Social Work Follow-up Call / CM - Transition Care Team ) 06/12/2018 Telephone Lily Smith hepatic M, RN encephalopathy (#4 call- final attempt of 7day call) 06/12/2018 Telephone Lily Smith hepatic M, RN encephalopathy (#3 call- 2nd attempt of 7day f/u call) 06/10/2018 Telephone Lily Smith M, RN encephalopathy (#2 call- 7day f/u call 1st attempt) 06/02/2018 Telephone Case Management [place], Liver Cirrhosis Enriqueta D, (Social Work brass wind instruments tube bender / CM - Transition Care Team ) 06/02/2018 Telephone Case Management [place], Liver Cirrhosis Enriqueta D, (Social Work brass wind instruments tube bender / CM - Transition Care Team ) 05/30/2018 Telephone Case Management [place], Liver Cirrhosis Enriqueta D, (Social Work brass wind instruments tube bender / CM - Transition Care Team ) 05/30/2018 Telephone Case Management [place], Liver Cirrhosis Enriqueta D, (Social Work hot stick worker/ CM - Transition Care Team ) 05/29/2018 Telephone Lily Smith liver cirrhosis (#1 M, RN call- 24-48hr f/u call) 05/23/2018 Hospital Encounter General Internal [place], Hepatic encephalopathy (HCC) (Primary Dx); - Medicine [...] Anderson MD 02/11/2018 Surgery Tamera Mayorga HERNIORRHAPHY,UMBILIC F., [place] 02/10/2018 Anesthesia Event Gastroenterology Rafael Almaguer [...] 12/06/2017 Abstract Transplant Hepatology Mona Newman RN after 12/05/2017 Social History Tobacco Use Types [...] 434 ms QTC Calculation(Bazett) 554 ms P [place] 71 degrees R [place] 36 degrees T [place] 61 degrees Normal sinus rhythm Nonspecific ST [...] are in the results section. LACTIC ACID, VENOUS STAT 05/23/2018 3:38 Results for this PM [...] 436 ms QTC Calculation(Bazett) 515 ms P [place] 94 degrees R [place] 24 degrees T [place] 27 degrees Normal sinus rhythm Low voltage [...] 430 ms QTC Calculation(Bazett) 517 ms R [place] 30 degrees T [place] 20 degrees Accelerated Junctional rhythm Septal infarct [...] 0 ms QTC Calculation(Bazett) 0 ms R [place] 0 degrees T [place] 0 degrees No QRS complexes found, no ECG analysis possible No previous ECGs available BLOOD CULTURE STAT 02/10/2018 2:01 AM CDT BLOOD GAS, VENOUS STAT 02/10/2018 2:00 AM CDT BLOOD CULTURE STAT 02/10/2018 1:56 AM CDT CBC W/PLT COUNT & AUTO STAT 02/10/2018 1:54 AM CDT Results for this DIFFERENTIAL procedure are in the results section. TYPE AND SCREEN, AUTOMATED STAT 02/10/2018 1:54 AM CDT ETHANOL STAT 02/10/2018 1:54 AM CDT AMMONIA STAT 02/10/2018 1:54 AM CDT TROPONIN I STAT 02/10/2018 1:54 AM CDT CREATINE KINASE (CK), TOTAL STAT 02/10/2018 1:54 AM CDT Results for this AND MB procedure are in the results section. LIPASE STAT 02/10/2018 1:54 AM CDT FIBRINOGEN STAT 02/10/2018 1:54 AM CDT APTT STAT 02/10/2018 1:54 AM CDT PROTHROMBIN TIME/INR STAT 02/10/2018 1:54 AM CDT LACTIC ACID, VENOUS STAT 02/10/2018 1:54 AM CDT HEPATIC FUNCTION PANEL STAT 02/10/2018 1:54 AM CDT PHOSPHORUS STAT 02/10/2018 1:54 AM CDT MAGNESIUM STAT 02/10/2018 1:54 AM CDT BASIC METABOLIC PANEL (7) STAT 02/10/2018 1:54 AM CDT CBC W/PLT COUNT & AUTO STAT 02/10/2018 1:54 AM CDT Results for this DIFFERENTIAL procedure are in the results section. after 12/05/2017 Results Basic Metabolic Panel (05/27/2018 2:39 AM CDT)Only the most recent of8 resultswithin the time period is included. Sodium 134 (L) 135 - 148 meq/L [facility] Potassium 3.5 3.5 - 5.5 meq/L [facility] Chloride 107 (H) 98 - 106 meq/L [facility] CO2 15 (L) 20 - 31 meq/L [facility] BUN 22 10 - 26 mg/dL [facility] Creatinine 1.51 (H) 0.50 - 1.20 mg/dL [facility] Glucose 105 70 - 110 mg/dL [facility] Calcium 9.7 8.5 - 10.5 mg/dL [facility] EGFR 37Comment: ESTIMATED GFR IS NOT mL/min/1.[address] [facility] ACCURATE CREATININE CLEARANCE IN PREDICTING GLOMERULAR FILTRATION RATE. ESTIMATED GFR IS NOT APPLICABLE FOR DIALYSIS PATIENTS. Specimen Blood Narrative Performed At [facility] Specimen slightly icteric Performing Organization Address City/State/Zipcode Phone Number [facility] [address] [place] [address] TRANSFUSION SERVICE REPORT - SCAN (05/26/2018 6:12 PM CDT)Only the most recent of7 resultswithin the time period is included. Narrative Performed At US paracentesis (05/26/2018 3:49 PM CDT)Only the most recent of3 resultswithin the time period is included. Specimen Narrative Performed At FINAL REPORT [facility] Ultrasound guided paracentesis, 05/26/2018. Clinical History:Ascites. Sedation: None. Youth Services Librarian:Vishnu Biggs MD Tree Driller:None. Estimated Blood Loss: < 1 cc. Specimen: [...] was achieved with 1% lidocaine, a 5 Indian one-step catheter was advanced into the peritoneal cavity under ultrasound guidance. After completion of drainage, the catheter was removed. There was no evidence of complication. Impression: Successful ultrasound guided paracentesis. Signed: Vishnu Biggs MD Report Verified Date/Time:05/26/2018 16:05:11 Reading Location: [facility] Radiology Reading Room Procedure Note Interface, External Ris In - 05/27/2018 7:25 AM CDT FINAL REPORT Ultrasound guided paracentesis, 05/26/2018. Clinical History: Ascites. Sedation: None. Youth Services Librarian: Vishnu Biggs MD Tree Driller: None. Estimated Blood Loss: < 1 cc. [...] was achieved with 1% lidocaine, a 5 Indian one-step catheter was advanced into the peritoneal cavity under ultrasound guidance. After completion of drainage, the catheter was removed. There was no evidence of complication. Impression: Successful ultrasound guided paracentesis. Signed: Vishnu Biggs MD Report Verified Date/Time: 05/26/2018 16:05:11 Reading Location: [facility] Radiology Reading Room Performing Organization Address [facility] Phone Number [facility] Body fluid culture (05/26/2018 3:20 PM CDT)Only the most recent of2 resultswithin the time period is included. Result No growth [facility] Gram Stain Result 2+ WBCs [facility] Gram Stain Result No organisms seen [facility] Specimen Body Fluid Performing Organization Address [facility] Phone Number [facility] [address] [place] [address] [phone] Body fluid cell count with differential (05/26/2018 3:20 PM CDT)Only the most recent of2 resultswithin the time period is included. Appearance Hazy (A) Clear [facility] Color Straw Colorless, Straw [facility] RBCs 1,220 (H) <=1 /uL [facility] Adjusted WBC Count 193 (H) <=5 /cu mm [facility] Lining Cells 14 (H) <=1 /cu mm [facility] % Segs 44 % [facility] % Lymphs 26 % [facility] % Monos 30 % [facility] % Eos 0 % [facility] % Baso 0 % [facility] Interpretation Negative for malignant [facility] cells. Pathologist: Stanislav Sofia M.D. [facility] (electronic signature) Container Body Fluid Sterile Cup [facility] Specimen Body Fluid Performing Organization Address [facility] Phone Number [facility] [address] [place] [address] Potassium (05/26/2018 5:16 AM CDT)Only the most recent of3 resultswithin the time period is included. Potassium 3.7 3.5 - 5.5 meq/L [facility] Specimen Blood Performing Organization Address [facility] Phone Number [facility] [address] [place] [address] Magnesium (05/26/2018 5:16 AM CDT)Only the most recent of7 resultswithin the time period is included. Magnesium 2.1 1.5 - 3.0 mg/dL [facility] Specimen Blood Performing Organization Address City/[facility]/Zipcode Phone Number [facility] [address] [place] [address] [phone] Ammonia (05/26/2018 5:16 AM CDT)Only the most recent of3 resultswithin the time period is included. Ammonia 134 (H) 12 - 72 mol/L [facility] Specimen Blood Performing Organization Address [facility] Phone Number [facility] [address] [place] [address] Comprehensive metabolic panel (05/26/2018 5:16 AM CDT)Only the most recent of4 resultswithin the time period is included. Protein, Total 7.5 6.0 - 8.5 gm/dL [facility] Albumin 3.9 3.5 - 5.0 g/dL [facility] Alkaline Phosphatase 97 30 - 115 U/L [facility] Total Bilirubin 2.3 (H) 0.1 - 1.3 mg/dL [facility] Sodium 134 (L) 135 - 148 meq/L [facility] Potassium 3.7 3.5 - 5.5 meq/L [facility] Chloride 105 98 - 106 meq/L [facility] CO2 16 (L) 20 - 31 meq/L [facility] BUN 25 10 - 26 mg/dL [facility] Creatinine 1.74 (H) 0.50 - 1.20 mg/dL [facility] Glucose 116 (H) 70 - 110 mg/dL [facility] Calcium 9.6 8.5 - 10.5 mg/dL [facility] AST 44 (H) 5 - 40 U/L [facility] ALT 23 6 - 50 U/L [facility] EGFR 31Comment: ESTIMATED GFR mL/min/1.[address] [facility] IS NOT ACCURATE CREATININE CLEARANCE IN PREDICTING GLOMERULAR FILTRATION RATE. ESTIMATED GFR IS NOT APPLICABLE FOR DIALYSIS PATIENTS. Specimen Blood Performing Organization Address City/[facility] Phone Number [facility] [address] [place] [address] Prepare Leuko-Red RBC (05/25/2018 11:54 PM CDT)Only the most recent of2 resultswithin the time period is included. CROSSMATCH COMPATIBLE SAFETRACE TX Unit ABO O Pos SAFETRACE TX UNIT NUMBER [id number] SAFETRACE TX Status TRANSFUSED SAFETRACE TX Blood Bank Product RED BLOOD CELLS SAFETRACE TX PRODUCT CODE [id number] SAFETRACE TX CROSSMATCH COMPATIBLE SAFETRACE TX Unit ABO O Pos SAFETRACE TX UNIT NUMBER [id number] SAFETRACE TX Status TRANSFUSED SAFETRACE TX Blood Bank Product RED BLOOD CELLS SAFETRACE TX PRODUCT CODE [id number] SAFETRACE TX Specimen Other Performing Organization Address City/State/[facility] Phone Number SAFETRACE TX CBC with platelet count + automated diff (05/25/2018 3:49 AM CDT)Only the most recent of11 resultswithin the time period is included. WBC 4.5 4.0 - 10.0 K/L [facility] RBC 3.28 (L) 4.00 - 5.00 M/L [facility] Hemoglobin 10.0 (L) 12.0 - 15.5 GM/DL [facility] Hematocrit 29.9 (L) 36.0 - 46.0 % [facility] MCV 91.2 82.0 - 99.0 fL [facility] MCH 30.5 27.0 - 33.0 pg [facility] MCHC 33.4 32.0 - 36.0 GM/DL [facility] RDW 17.4 (H) 12.0 - 15.0 % [facility] Platelets 105 (L) 150 - 430 K/CU MM [facility] MPV 10.5Comment: 6.0 - 11.5 fL [facility] MPV-Approximately 20% positive bias due to method change. nRBC 0 0 - 0 /[address] [facility] % Neutros 71 % [facility] % Lymphs 8 % [facility] % Monos 13 % [facility] % Eos 6 % [facility] % Baso 1 % [facility] # Neutros 3.22 1.80 - 8.00 K/L [facility] # Lymphs 0.38 (L) 1.48 - 4.50 K/L [facility] # Monos 0.57 0.00 - 1.30 K/L [facility] # Eos 0.29 0.00 - 0.50 K/L [facility] # Baso 0.05 0.00 - 0.20 K/L [facility] Immature 0 0 - 0 % [facility] Granulocytes-Relative Specimen Blood Performing Organization Address [facility] Phone Number [facility] [address] [place] [address] Transfuse Leuko-Red RBC (05/25/2018 12:17 AM CDT)Only the most recent of5 resultswithin the time period is included.Occult blood, stool (05/24/2018 1:38 PM CDT) Occult blood Positive (A) Negative [facility] Specimen Stool Performing Organization Address [facility] [address] [place] [address] [phone] Sodium, random urine (05/24/2018 1:38 PM CDT)Only the most recent of2 resultswithin the time period is included. Sodium Urine 28 meq/L [facility] Specimen Urine Narrative Performed At [facility] Reference Range: No Normals Performing Organization Address [facility] [address] [place] [address] [phone] Creatinine, random urine (05/24/2018 1:38 PM CDT)Only the most recent of2 resultswithin the time period is included. Creatinine, Ur 42.7 mg/dL [facility] Specimen Urine Narrative Performed At [facility] Reference Range: No Normals Performing Organization Address [facility] Number [facility] [address] [place] [address] Type and screen, automated (05/24/2018 1:36 PM CDT)Only the most recent of2 resultswithin the time period is included. ABORh O POSITIVE [facility] Antibody Screen NEGATIVE [facility] Specimen Blood Performing Organization Address City/[facility] Phone Number [facility] [address] [facility] [place] [address] [facility] Alpha fetoprotein (AFP), tumor marker (05/24/2018 1:36 PM CDT) Alpha-Fetoprotein 5.5 <10.0 ng/mL [facility] Specimen Blood Performing Organization Address City/[facility]/Zipcode Phone Number [facility] [address] [place] [phone] [place] Hepatitis panel, acute (05/24/2018 1:36 PM CDT) Hep A IgM HEPATITIS A TEST NEGATIVE Nonreactive [facility] Hep B C IgM NON-REACTIVE Nonreactive [facility] Hepatitis C Ab NON-REACTIVE Nonreactive [facility] hepatitis B Surface Ag NON-REACTIVE Nonreactive [facility] Specimen Blood Performing Organization Address City/[facility] Phone Number [address] [phone] CENTER US renal complete (05/24/2018 11:37 AM CDT) Specimen Narrative Performed At FINAL REPORT [employer] RENAL ULTRASOUND HISTORY: Acute kidney injury COMPARISON: [...] MD Report Verified Date/Time:05/24/2018 11:53:08 Reading Location: [address] Transitional Reading Room Procedure Note Interface, [...] Report Verified Date/Time: 05/24/2018 11:53:08 Reading Location: [facility] Transitional Reading Room Performing Organization Address City/State/Zipcode Phone Number [facility] CT brain without IV contrast (05/23/2018 5:55 PM CDT) Specimen Narrative Performed At FINAL REPORT [facility] CT head without contrast 05/23/2018 5:55 PM [...] MD Report Verified Date/Time:05/23/2018 17:56:33 Reading Location: [facility] Radiology Reading Room Procedure Note Interface, [...] Report Verified Date/Time: 05/23/2018 17:56:33 Reading Location: [facility] Radiology Reading Room Performing Organization Address City/State/Zipcode Phone Number [facility] XR chest 1 view portable / bedside (05/23/2018 4:25 PM CDT) Specimen Narrative Performed At FINAL REPORT [employer] RIS CHEST AP PORTABLE History provided: Altered mental status Heart size normal. Lungs clear and vascularity normal. IMPRESSION: Clear chest. Signed: Gonzalo Serrano MD Report Verified Date/Time:05/23/2018 16:22:47 Reading Location: [facility] Radiology Reading Room Procedure Note Interface, External Ris In - 05/23/2018 4:45 PM CDT FINAL REPORT CHEST AP PORTABLE History provided: Altered mental status Heart size normal. Lungs clear and vascularity normal. IMPRESSION: Clear chest. Signed: Gonzalo Serrano MD Report Verified Date/Time: 05/23/2018 16:22:47 Reading Location: [facility] Radiology Reading Room Performing Organization Address City/[facility] Phone Number [employer] ECG 12 lead (05/23/2018 3:52 PM CDT)Only the most recent of3 resultswithin the time period is included. Specimen Narrative Performed At Ventricular Rate 98 BPM [facility] Atrial Rate 98 BPM P-R Interval 136 ms QRS Duration 74 ms Q-T Interval 434 ms QTC Calculation(Bazett) 554 ms P [place] 71 degrees R [place] 36 degrees T [place] 61 degrees Normal sinus rhythm Nonspecific ST abnormality Prolonged QT Abnormal ECG No previous ECGs available Procedure Note Interface, External Ris In - 05/26/2018 4:49 PM CDT Ventricular Rate 98 BPM Atrial Rate 98 BPM P-R Interval 136 ms QRS Duration 74 ms Q-T Interval 434 ms QTC Calculation(Bazett) 554 ms P [place] 71 degrees R [place] 36 degrees T [place] 61 degrees Normal sinus rhythm Nonspecific ST abnormality Prolonged QT Abnormal ECG No previous ECGs available Performing Organization Address [facility] Phone Number [employer] MUSE Urinalysis w/Microscopic (05/23/2018 3:47 PM CDT) Color, UA Yellow [facility] Clarity, UA Hazy [facility] Specific Arrey, UA 1.016 1.001 - 1.035 [facility] pH, UA 5.0 5.0 - 8.0 [facility] Protein, UA Negative Negative [facility] Glucose, UA Negative Negative [facility] Ketones, UA Negative Negative [facility] Bilirubin, UA Negative Negative [facility] Blood, UA Negative Negative [facility] Nitrite, UA Negative Negative [facility] Leukocytes, UA Negative Negative [facility] Urobilinogen, UA <1.0 0.2 - 1.0 mg/dL [facility] RBC, UA 1 /HPF [facility] WBC, UA 1 /HPF [facility] Bacteria, UA Rare [facility] Mucus Rare [facility] Squam Epithel, UA <1 /HPF [facility] Hyaline Casts, UA 4 /LPF [facility] Specimen Source [facility] Specimen Urine - Urine, Straight Catheter Performing Organization Address [facility] Phone Number [facility] [address] [place], [place] [address] [phone] Urine culture (05/23/2018 3:47 PM CDT) Result No growth [facility] Specimen Urine - Urine, Straight Catheter Performing Organization Address [facility] Phone Number [facility] [address] [place] [address] Prothrombin time/INR (05/23/2018 3:40 PM CDT)Only the most recent of3 resultswithin the time period is included. Protime 16.1 (H) 11.8 - 14.4 seconds [facility] INR 1.3 1.2 - 1.5 [facility] Specimen Blood Narrative Performed At [facility] RECOMMENDED COUMADIN/WARFARIN INR THERAPY RANGES STANDARD DOSE: 2.0 - 3.0 Includes: PROPHYLAXIS for venous thrombosis, systemic embolization; TREATMENT for venous thrombosis and/or pulmonary embolus. HIGH RISK: Target INR is 2.5-3.5 for patients with mechanical heart valves. Performing Organization Address [facility]/[place] [id number] [place] [address] Blood culture (05/23/2018 3:39 PM CDT)Only the most recent of4 resultswithin the time period is included. Result No growth in 5 days [facility] Specimen Blood Performing Organization Address [facility] [address] [place] [address] Lactic acid, venous, whole blood (05/23/2018 3:38 PM CDT)Only the most recent of2 resultswithin the time period is included. Lactate, Venous 2.0Comment: Specimen moderately 0.5 - 2.2 mmol/L [facility] hemolyzed Specimen Blood Narrative Performed At [facility] Effective 12/07/2015: Units/Reference Range Change New: 0.5-2.2 mmol/LPrevious: 5-20 mg/dL Performing Organization Address [facility] Number [facility] [address] [place] [address] [phone] Lipase (05/23/2018 3:38 PM CDT)Only the most recent of2 resultswithin the time period is included. Lipase 82 (H) 8 - 78 U/L [facility] Specimen Blood Performing Organization Address City/State/Zipcode Phone Number [facility] [address] [place] [address] RHYTHM STRIP - SCAN (02/18/2018 10:30 AM CDT) Narrative Performed At POC-Glucose meter (02/15/2018 11:14 AM CDT)Only the most recent of17 resultswithin the time period is included. POC-Glucose Meter 119 (H)Comment: TESTED AT 70 - 110 mg/dL [address] [address] Specimen Blood Performing Organization Address City/[facility]/Zipcode Phone Number [address] [phone] CENTER CBC (Hemogram only) (02/15/2018 5:05 AM CDT)Only the most recent of3 resultswithin the time period is included. WBC 5.1 3.5 - 10.5 K/L [facility] RBC 2.79 (L) 3.93 - 5.22 M/L [facility] Hemoglobin 8.8 (L) 11.2 - 15.7 GM/DL [facility] [facility] Hematocrit 27.2 (L) 34.1 - 44.9 % [facility] MCV 97.5 (H) 79.4 - 94.8 fL [facility] MCH 31.5 25.6 - 32.2 pg [facility] MCHC 32.4 32.2 - 35.5 GM/DL [facility] RDW 18.8 (H) 11.7 - 14.4 % [facility] Platelets 86 (L) 150 - 450 K/CU MM [facility] MPV 12.6 (H) 9.4 - 12.3 fL [facility] nRBC 0 0 - 0 /100 WBC [facility] Specimen Blood Performing Organization Address City/[facility] Phone Number [address] [address] CENTER Phosphorus (02/15/2018 5:05 AM CDT)Only the most recent of6 resultswithin the time period is included. Phosphorus 3.5 2.3 - 4.7 mg/dL [facility] Specimen Blood Performing Organization Address [facility] Phone Number [address] [address] [phone] [place] Hepatic function panel (02/15/2018 5:05 AM CDT)Only the most recent of5 resultswithin the time period is included. Protein, Total 6.3 6.0 - 8.3 gm/dL [facility] Albumin 3.9 3.5 - 5.0 g/dL [facility] Total Bilirubin 1.7 (H) 0.2 - 1.2 mg/dL [facility] Bilirubin, Direct 1.0 (H) 0.1 - 0.5 mg/dL [facility] Alkaline Phosphatase 126 40 - 150 U/L [facility] AST 118 (H) 5 - 34 U/L [facility] ALT 56 (H) 6 - 55 U/L [facility] Specimen Blood Performing Organization Address City/[facility] Phone Number [address] [address] [phone] CENTER aPTT (02/14/2018 3:12 PM CDT)Only the most recent of2 resultswithin the time period is included. PTT 28.9 22.5 - 36.0 seconds [facility] Specimen Blood Performing Organization Address City/[facility] Phone Number [address] [address] [phone] CENTER Prepare RBC (02/12/2018 11:54 PM CDT) CROSSMATCH COMPATIBLE SAFETRACE TX Unit ABO O Pos SAFETRACE TX UNIT NUMBER [id number] SAFETRACE TX Status RETURNED FROM ISSUE SAFETRACE TX Blood Bank Product RED BLOOD CELLS SAFETRACE TX PRODUCT CODE [id number] SAFETRACE TX CROSSMATCH COMPATIBLE SAFETRACE TX Unit ABO O Pos SAFETRACE TX UNIT NUMBER [id number] SAFETRACE TX Status TRANSFUSED SAFETRACE TX Blood Bank Product RED BLOOD CELLS SAFETRACE TX PRODUCT CODE [id number] SAFETRACE TX Performing Organization Address [facility] Phone Number SAFETRACE TX HIV-1 Antigen with HIV-1/2 Antibody (02/12/2018 5:29 AM CDT) HIV-1 Antigen with HIV 1&2 NON-REACTIVE Nonreactive [facility] Specimen Blood Performing Organization Address [facility] Phone Number [address] [address] CENTER PT/aPTT (02/11/2018 3:47 PM CDT)Only the most recent of2 resultswithin the time period is included. Protime 18.7 (H) 11.7 - 14.7 seconds [facility] INR 1.6 <=5.9 [facility] PTT 36.5 (H) 22.5 - 36.0 seconds [facility] Specimen Blood Narrative Performed At [facility] RECOMMENDED COUMADIN/WARFARIN INR THERAPY RANGES STANDARD DOSE: 2.0 - 3.0 Includes: PROPHYLAXIS for venous thrombosis, systemic embolization; TREATMENT for venous thrombosis and/or pulmonary embolus. HIGH RISK: Target INR is 2.5-3.5 for patients with mechanical heart valves. Performing Organization Address [facility] Phone Number [address] [address] CENTER Tissue Exam (02/11/2018 1:38 PM CDT) Case Report Surgical Pathology Report Case: [id number] [facility] Authorizing Provider:Tamera Mayorga MD Collected: 02/11/2018 1338 [facility]ICAL [facility]ENTER Ordering Location: [place] [address] ICUReceived: 02/11/2018 1613 Pathologist: Herminia Hope MD Specimen:Hernia Sac, Umbilical DIAGNOSIS SKIN AND HERNIA SAC, EXCISION: [facility] - SKIN WITH ULCER, NECROSIS, HERNIA WITH FIBROSIS, ADHESION AND CHRONIC INFLAMMATION [facility] Signing Pathologist Direct Phone Line: [phone] CPT Code(s) 09798 [facility] CLINICAL HISTORY Incarcerated umbilical [facility] hernia [facility]ENTER SPECIMEN SOURCE Hernia sac umbilical [facility] GROSS DESCRIPTION The specimen is received in [facility] a formalin-filled container [facility] labeled with the patient's information and labeled "umbilical hernial sac" and consists of hemorrhagic membranous tissue measuring 6 x 3 x 0.2 cm with overlying brown skin measuring 5.5 x 3 x 0.3 cm, submitted in A1 and A2. There are no areas of suspicion. CG/ew MICROSCOPIC DESCRIPTION Performed [facility] Specimen Tissue - Hernia Sac, Umbilical Performing Organization Address City/[facility] Phone Number [facility] [address] [place] [address] CENTER AFB culture + smear (02/11/2018 1:34 PM CDT) Result No acid-fast bacilli isolated in [facility] 42 days CENTER AF[employer] Smear No acid fast bacilli seen [facility] Specimen Wound Performing Organization Address City/[facility] Phone Number [facility] [address] [place] [address] [place] Anaerobic culture (02/11/2018 1:34 PM CDT) Result No anaerobes isolated [facility] Specimen Wound Performing Organization Address City/[facility] Phone Number [address] [address] [phone] [place] Surgically obtained culture + gram stain (02/11/2018 1:34 PM CDT) Result No growth [facility] Gram Stain Result <1+ WBCs [facility] Gram Stain Result No organisms seen [facility] Specimen Wound Performing Organization Address City/[facility] Phone Number [address] [address] [place] Fungus culture + smear (02/11/2018 1:34 PM CDT) Result No fungus isolated in 28 days [facility] Fungus Smear No fungi seen [facility] Specimen Wound Performing Organization Address [facility] Phone Number [address] [address] [phone] [place] SPIN/CONCENTRATION CHARGE (02/11/2018 1:34 PM CDT) Concentration charged Done [facility] Specimen Wound Performing Organization Address [facility] Number [address] [address] [phone] [place] Potassium-Stat Lab (02/11/2018 1:21 PM CDT) Potassium 3.9 3.6 - 5.5 meq/L [facility] Specimen Other Narrative Performed At THIS IS A VENOUS SAMPLE [facility] THIS IS A VENOUS SAMPLE THIS IS A VENOUS SAMPLE Performing Organization Address [facility] Phone Number [address] [address] [place] Sodium Na-Stat Lab (02/11/2018 1:21 PM CDT) Sodium 135 135 - 148 meq/L [facility] Specimen Other Narrative Performed At THIS IS A VENOUS SAMPLE [facility] THIS IS A VENOUS SAMPLE THIS IS A VENOUS SAMPLE Performing Organization Address City/[facility] Phone Number [address] [address] [place] Glucose-Stat Lab (02/11/2018 1:21 PM CDT) Glucose 122 (H) 70 - 110 mg/dL [facility] Specimen Other Narrative Performed At THIS IS A VENOUS SAMPLE [facility] THIS IS A VENOUS SAMPLE THIS IS A VENOUS SAMPLE Performing Organization Address [facility] Phone Number [address] [address] [phone] [place] HGB/HCT (H&H)-Stat Lab (02/11/2018 1:21 PM CDT) Hemoglobin 8.7 (L) 12.0 - 15.0 g/dL [facility] Hematocrit 26.0 (L) 36.0 - 45.0 % [facility] Specimen Other Narrative Performed At THIS IS A VENOUS SAMPLE [facility] Performing Organization Address [facility] Phone Number [address] [address] [place] Calcium, Ionized (02/11/2018 1:21 PM CDT) Calcium, Ion 1.07 (L) 1.12 - 1.27 mmol/L [facility] pH, Blood 7.28 [facility] Specimen Blood Performing Organization Address [facility] Phone Number [address] [address] [place] US abdomen complete (02/11/2018 6:57 AM CDT) Specimen Narrative Performed At FINAL REPORT [employer] Abdominal Ultrasound Clinical Diagnosis: Ascites acute renal [...] MD Report Verified Date/Time:02/11/2018 09:32:36 Reading Location: [address] Ultrasound Reading Room Procedure Note Interface, [...] Report Verified Date/Time: 02/11/2018 09:32:36 Reading Location: [facility] [id number] Ultrasound Reading Room Performing Organization Address City/State/Zipcode Phone Number [employer] [facility] CT abdomen/pelvis without iv contrast (02/11/2018 12:01 AM CDT) Specimen Narrative Performed At FINAL REPORT [employer] HISTORY : Hernia, complicated Technique: Multiple axial [...] MD Report Verified Date/Time:02/11/2018 07:50:19 Reading Location: [facility] Diagnostic Imaging Reading Room - [place] [address] Procedure Note Interface, External Ris In - [...] Report Verified Date/Time: 02/11/2018 07:50:19 Reading Location: [facility] Diagnostic Imaging Reading Room - [place] [address] Performing Organization Address City/State/Zipcode Phone Number [facility] Protein, random urine (02/10/2018 6:15 PM CDT) Protein, Urine 19 (H) 0 - 14 mg/dL [facility] Specimen Urine Performing Organization Address [facility] Phone Number [address] [address] [phone] [place] Screen, urine (02/10/2018 6:14 PM CDT) Preg Test, Ur Negative [facility] Specimen Urine Performing Organization Address [facility] Phone Number [address] [address] [place] REPORT OF PROCEDURE - ENDOSCOPY URL (02/10/2018 4:35 PM CDT) Narrative Performed At Urinalysis w/Microscopic + Reflex to Culture (02/10/2018 4:08 AM CDT) Color, UA Yellow [facility] Clarity, UA Hazy [facility] Specific Arrey, UA 1.013 1.001 - 1.035 [facility] pH, UA 6.0 5.0 - 8.0 [facility] Protein, UA 10 mg/dL (A) Negative [facility] Glucose, UA Negative Negative [facility] Ketones, UA Trace (A) Negative [facility] Bilirubin, UA Negative Negative [facility] Blood, UA Negative Negative [facility] Nitrite, UA Negative Negative [facility] Leukocytes, UA Negative Negative [facility] Urobilinogen, UA 0.2 0.2 - 1.0 mg/dL [facility] RBC, UA <1 /HPF [facility] WBC, UA 2 /HPF [facility] Bacteria, UA Rare [facility] Mucus Rare [facility] Squam Epithel, UA 8 /HPF [facility] Hyaline Casts, UA 70 /LPF [facility] Amorphous Crystals Rare [facility] Specimen Source [facility] Specimen Urine Performing Organization Address City/State/Zipcode Phone Number [facility] [address] [place] [address] CENTER Rapid drug screen, urine (02/10/2018 4:08 AM CDT) Barbiturate Screen Negative Negative [facility] Benzodiazepine Screen Negative Negative [facility] Cocaine (Metab.) Screen Negative Negative [facility] Methadone Screen Negative Negative [facility] Opiate Screen Negative Negative [facility] Cannabinoid Screen Negative Negative [facility] Amph/Methamph Screen Negative Negative [facility] Phencyclidine Screen Negative Negative [facility] Oxycodone Screen Negative Negative [facility] Specimen Urine Narrative Performed At [facility] DRUGCUTOFF CONC. Cocaine 300 ng/mL Cckeipxqdgx89 ng/mL Tpxlbmxfguymey833 ng/mL Barbiturate 200 ng/mL Busmwyyjbdgnn85 ng/mL Fqsydo716 ng/mL Methadone 300 ng/mL Amphetamine/ 1000 ng/mL Methamphetamine Oxycodone 300 ng/mL This assay provides an unconfirmed qualitative test result for the clinical management of patients in emergency situations. Chain of custody not maintained. Some ymij-ajn-awaegxs medications, as well as adulterants, may cause inaccurate results. Clinical correlation should be applied. A more comprehensive drug screen or confirmation of a detected drug may be performed upon request. Performing Organization Address City/[facility]/Zipcode Phone Number [address] [address] [place] Blood gas, venous (02/10/2018 2:00 AM CDT) pH, Ortiz 7.42 7.32 - 7.42 [facility] pCO2, Ortiz 28 (L) 41 - 51 mmHg [facility] pO2, Ortiz 34 25 - 40 mmHg [facility] O2 Sat, Ortiz 67.6 40.0 - 70.0 % [facility] HCO3, Ortiz 17 (L) 21 - 29 mmol/L [facility] Base Excess, Ortiz -6.2 (L) -2.0 - 3.0 mmol/L [facility] Patient Temperature 37.0 C [facility] Specimen Blood Performing Organization Address City/[facility]/Zipcode Phone Number [facility] [address] [place] [address] [phone] [place] Troponin I (02/10/2018 1:54 AM CDT) Troponin I <0.01 0.00 - 0.03 ng/mL [facility] Specimen Blood Narrative Performed At [facility] Troponin I (TnI) levels must be interpreted [...] disease, and persistent tachyarrhythmia. Performing Organization Address [facility] Phone Number [address] [address] [phone] CENTER Fibrinogen (02/10/2018 1:54 AM CDT) Fibrinogen 372 225 - 434 mg/dl [facility] Specimen Blood Performing Organization Address [facility] Phone Number [address] [address] [place] Creatine Kinase (CK), Total and MB (02/10/2018 1:54 AM CDT) Total CK 30 29 - 200 U/L [facility] CK-MB 0.4 0.0 - 6.6 ng/mL [facility] MB Relative Index 1.3 % [facility] Specimen Blood Narrative Performed At CK-MB Reference Range: [facility] <6.7Normal 6.7-10.0Borderline >10.0 Abnormal Performing Organization Address [facility] Phone Number [address] [address] CENTER Ethanol (02/10/2018 1:54 AM CDT) Ethanol Lvl <10 <=10 mg/dL [facility] Specimen Blood Performing Organization Address [facility] Phone Number [address] [address] [phone] CENTER after 12/05/2017 Insurance Payer Benefit Plan / Group Subscriber ID Type Phone Address [employer] MED[place] MEDICAID [place] xxxxxxxxx Advance Directives For more information, please contact:[address] [phone] Code Status Date Activated Date Inactivated Comments Full Code 05/23/2018 8:59 PM 05/27/2018 7:11 PM This code status was determined by: Patient Full Code 02/10/2018 2:37 AM 02/15/2018 7:08 PM This code status was determined by: Patient
--- OUTSIDE RECORDS SUMMARY | 2018-12-06 04:28 | XMS REPORT ---
:1970 [facility] Address [address] [place] [address] [place] [address] Care Team Providers Name Role Phone CLEVE [...] FINAL REPORT PATIENT ID: [id number] exam:->ascitesReason for [id number] Ultrasound exam:->possible sbpShould guided paracentesis, this be performed at the 05/23/2018. Clinical bedside?->Yes History: Ascites. Sedation: None. Staff Physician: Mckenzie. Biomass Plant Manager: None. Estimated Blood Loss: < 1 cc. [...] was achieved with 1% lidocaine, a 5 Tu[place] one-step catheter was advanced into the peritoneal cavity under ultrasound guidance. After completion of drainage, the catheter was removed. There was no evidence of complication. Patient Disposition: The patient was discharged from the ultrasound department after the paracentesis, in good condition. Impression:Successful ultrasound guided paracentesis. Signed: Pino Rincon Verified Date/Time: 06/02/2018 08:43:07 Reading Location: [facility] B1 P048 Angio Body Reading Room FLUID CULTURE + GRAM STAIN 2018-05-29 08:26:00 Test Item Value Reference Range Comments CULTURE (BEAKER) (test dvop=2085) No growth GRAM STAIN RESULT (BEAKER) (test tohd=5123) 2+ WBCs GRAM STAIN RESULT (BEAKER) (test kgfs=80488) No organisms seen BLOOD [id number] 19:00:00 Test Item Value Reference Range Comments CULTURE (BEAKER) (test qyye=0754) No growth in 5 days BLOOD [id number] 19:00:00 Test Item Value Reference Range Comments CULTURE (BEAKER) (test leko=3305) No growth in 5 days BODY FLUID CELL COUNT WITH [id number] 15:04:00 Test Item Value Reference Range Comments APPEARANCE FLUID (BEAKER) (test Hazy Clear okql=507) COLOR FLUID (BEAKER) (test Straw Colorless, Straw kmvg=452) RBC FLUID (BEAKER) (test 1220 /uL <=1 gxyg=057) ADJUSTED WBC FLUID (BEAKER) 193 /cu mm <=5 (test tgau=3706) LINING CELLS (BEAKER) (test 14 /cu mm <=1 yhcz=2948) NEUTROPHILS FLUID (BEAKER) 44 % (test hzms=0761) LYMPHS FLUID (BEAKER) (test 26 % cppb=768) MONO/MACROPHAGE FLUID (BEAKER) 30 % (test qgsu=872) EOSINOPHILS FLUID (BEAKER) 0 % (test vmhm=166) BASO FLUID (BEAKER) (test 0 % scll=204) INTERPRETATION-210 (BEAKER) Negative for malignant (test ycnj=7162) cells. HBUG-NSXJMOOGZLR-609 (BEAKER) Stanislav Sofia M.D. (test hneq=5230) (electronic signature) CONTAINER BODY FLUID (BEAKER) Sterile Cup (test mahd=8084) BASIC METABOLIC [id number] 03:33:00 Test Item Value Reference Range Comments SODIUM (BEAKER) (test 134 meq/L 135-148 koqp=721) POTASSIUM (BEAKER) (test 3.5 meq/L 3.5-5.5 vpqq=006) CHLORIDE (BEAKER) (test 107 meq/L 98-106 srnw=382) CO2 (BEAKER) (test 15 meq/L 20-31 thuf=871) BLOOD UREA NITROGEN 22 mg/dL 10-26 (BEAKER) (test qxev=776) CREATININE (BEAKER) (test 1.51 mg/dL 0.50-1.20 aeng=711) GLUCOSE RANDOM (BEAKER) 105 mg/dL 70-110 (test nhsj=327) CALCIUM (BEAKER) (test 9.7 mg/dL 8.5-10.5 fdmm=196) EGFR (BEAKER) (test 37 mL/min/1.73 sq m ESTIMATED GFR IS NOT vtoz=2645) ACCURATE CREATININE CLEARANCE IN PREDICTING GLOMERULAR FILTRATION RATE. ESTIMATED GFR IS NOT APPLICABLE FOR DIALYSIS PATIENTS. Specimen slightly ictericU/S, [id number] 16:05:00Reason for exam:-& gt;ascites, please only remove about 3L, pt with ZUNILDA too, dont want to shift fluidbalanceFINAL REPORT Ultrasound guided paracentesis , 05/26/2018. Clinical History:Ascites. Sedation: None. Staff Physician: Vishnu Biggs MD Biomass Plant Manager: None. Estimated Blood Loss: < 1 cc. [...] achieved with 1 % lidocaine, a 5 Tu[place]uan one-step catheter was advanced into the peritoneal cavity under ultrasound guidance. After completion of drainage, the catheter was removed. There was no evidence ofcomplication. Impression:Successful ultrasound guided paracentesis. Signed: Vishnu Biggsepfre[facility] Verified Date/ Time: 05/26/2018 16:05:11 Reading Location: [facility] Radiology Reading Room COMPREHENSIVE METABOLIC [id number] 05:55:00 Test Item Value Reference Range Comments TOTAL PROTEIN (BEAKER) 7.5 gm/dL 6.0-8.5 (test essh=330) ALBUMIN (BEAKER) (test 3.9 g/dL 3.5-5.0 bnuv=6264) ALKALINE PHOSPHATASE 97 U/L 30-115 (BEAKER) (test oogz=060) BILIRUBIN TOTAL (BEAKER) 2.3 mg/dL 0.1-1.3 (test itof=215) SODIUM (BEAKER) (test 134 meq/L 135-148 grnb=426) POTASSIUM (BEAKER) (test 3.7 meq/L 3.5-5.5 thfx=191) CHLORIDE (BEAKER) (test 105 meq/L 98-106 jsaq=240) CO2 (BEAKER) (test 16 meq/L 20-31 ntqo=251) BLOOD UREA NITROGEN 25 mg/dL 10-26 (BEAKER) (test hrxb=170) CREATININE (BEAKER) (test 1.74 mg/dL 0.50-1.20 antq=848) GLUCOSE RANDOM (BEAKER) 116 mg/dL 70-110 (test ydcf=881) CALCIUM (BEAKER) (test 9.6 mg/dL 8.5-10.5 rglg=622) AST (SGOT) (BEAKER) (test 44 U/L 5-40 nsuu=449) ALT (SGPT) (BEAKER) (test 23 U/L 6-50 icsb=499) EGFR (BEAKER) (test 31 mL/min/1.73 sq m ESTIMATED GFR IS NOT zxsy=9722) ACCURATE CREATININE CLEARANCE IN PREDICTING GLOMERULAR FILTRATION RATE. ESTIMATED GFR IS NOT APPLICABLE FOR DIALYSIS PATIENTS. [id number] 05:51:00 Test Item Value Reference Range Comments POTASSIUM (BEAKER) (test hzek=992) 3.7 meq/L 3.5-5.5 [id number] 05:51:00 Test Item Value Reference Range Comments MAGNESIUM (BEAKER) (test awds=944) 2.1 mg/dL 1.5-3.0 [id number] 05:31:00 Test Item Value Reference Range Comments AMMONIA (BEAKER) (test uewa=554) 134 mol/L 12-72 URINE [id number] 12:48:00 Test Item Value Reference Range Comments CULTURE (BEAKER) (test rfme=8757) No growth BASIC METABOLIC [id number] 04:24:00 Test Item Value Reference Range Comments SODIUM (BEAKER) (test 131 meq/L 135-148 xdfd=101) POTASSIUM (BEAKER) (test 3.5 meq/L 3.5-5.5 eodn=705) CHLORIDE (BEAKER) (test 103 meq/L 98-106 liof=023) CO2 (BEAKER) (test 17 meq/L 20-31 oqse=999) BLOOD UREA NITROGEN 27 mg/dL 10-26 (BEAKER) (test srbh=624) CREATININE (BEAKER) (test 2.29 mg/dL 0.50-1.20 nbbb=463) GLUCOSE RANDOM (BEAKER) 93 mg/dL 70-110 (test eqbg=667) CALCIUM (BEAKER) (test 9.2 mg/dL 8.5-10.5 gqfc=620) EGFR (BEAKER) (test 23 mL/min/1.73 sq m ESTIMATED GFR IS NOT hjzm=9957) ACCURATE CREATININE CLEARANCE IN PREDICTING GLOMERULAR FILTRATION RATE. ESTIMATED GFR IS NOT APPLICABLE FOR DIALYSIS PATIENTS. CBC W/PLT COUNT & AUTO [id number] 03:55:00 Test Item Value Reference Range Comments WHITE BLOOD CELL COUNT (BEAKER) 4.5 K/ L 4.0-10.0 (test mjfm=696) RED BLOOD CELL COUNT (BEAKER) 3.28 M/ L 4.00-5.00 (test zokm=648) HEMOGLOBIN (BEAKER) (test 10.0 GM/DL 12.0-15.5 nzvl=572) HEMATOCRIT (BEAKER) (test 29.9 % 36.0-46.0 kwtb=072) MEAN CORPUSCULAR VOLUME 91.2 fL 82.0-99.0 (BEAKER) (test owcb=750) MEAN CORPUSCULAR HEMOGLOBIN 30.5 pg 27.0-33.0 (BEAKER) (test vwrf=564) MEAN CORPUSCULAR HEMOGLOBIN 33.4 GM/DL 32.0-36.0 CONC (BEAKER) (test ogzp=347) RED CELL DISTRIBUTION WIDTH 17.4 % 12.0-15.0 (BEAKER) (test daim=160) PLATELET COUNT (BEAKER) (test 105 K/CU MM 150-430 lubw=561) MEAN PLATELET VOLUME (BEAKER) 10.5 fL 6.0-11.5 MPV-Approximately 20% (test etso=583) positive bias due to method change. NUCLEATED RED BLOOD CELLS 0 /100 WBC 0-0 (BEAKER) (test ucec=223) NEUTROPHILS RELATIVE PERCENT 71 % (BEAKER) (test lfuy=942) LYMPHOCYTES RELATIVE PERCENT 8 % (BEAKER) (test wdyd=328) MONOCYTES RELATIVE PERCENT 13 % (BEAKER) (test aswl=118) EOSINOPHILS RELATIVE PERCENT 6 % (BEAKER) (test slie=037) BASOPHILS RELATIVE PERCENT 1 % (BEAKER) (test hxzh=002) NEUTROPHILS ABSOLUTE COUNT 3.22 K/ L 1.80-8.00 (BEAKER) (test zagl=852) LYMPHOCYTES ABSOLUTE COUNT 0.38 K/ L 1.48-4.50 (BEAKER) (test rrfy=025) MONOCYTES ABSOLUTE COUNT 0.57 K/ L 0.00-1.30 (BEAKER) (test tuar=039) EOSINOPHILS ABSOLUTE COUNT 0.29 K/ L 0.00-0.50 (BEAKER) (test ayme=826) BASOPHILS ABSOLUTE COUNT 0.05 K/ L 0.00-0.20 (BEAKER) (test ztpa=494) IMMATURE GRANULOCYTES-RELATIVE 0 % 0-0 PERCENT (BEAKER) (test sjfa=7703) HEPATITIS PANEL, [id number] 20:47:00 Test Item Value Reference Range Comments HEPATITIS A IGM ANTIBODY (BEAKER) (test Nonreactive Nonreactive jvwb=344) HEPATITIS B CORE IGM ANTIBODY (BEAKER) (test Nonreactive Nonreactive vmlf=309) HEPATITIS C ANTIBODY (BEAKER) (test hmir=331) Nonreactive Nonreactive HEPATITIS B SURFACE ANTIGEN (2) (BEAKER) (test Nonreactive Nonreactive gzon=3338) ALPHA FETOPROTEIN (AFP), TUMOR [id number] 19:52:00 Test Item Value Reference Range Comments ALPHA-FETOPROTEIN (BEAKER) (test laod=5789) 5.5 ng/mL <10.0 CREATININE, RANDOM [id number] 14:08:00 Test Item Value Reference Range Comments CREATININE URINE (BEAKER) (test jmth=104) 42.7 mg/dL Reference Range: No NormalsSODIUM, RANDOM [id number] 14:08:00 Test Item Value Reference Range Comments SODIUM URINE (BEAKER) (test vhmo=445) 28 meq/L Reference Range: No NormalsOCCULT BLOOD, [id number] 13:56:00 Test Item Value Reference Range Comments FECAL OCCULT BLOOD (BEAKER) (test aflt=384) Positive Negative U/S, RENAL, [id number] 11:53:00Reason for exam:->akiFINAL REPORT RENAL ULTRASOUND HISTORY: Acute kidney injury COMPARISON : Abdominal ultrasound 02/11/2018 TECHNIQUE: Real-time ultrasound of the kidneys was performed. FINDINGS: Thekidneys are normal in size. The right kidney measures 11.6 cm in length and the left kidney pcwogfup04.1 cm in length. Renal cortical thickness measures [...] MDReport Verified Date/Time: 05/24/2018 11:53:08 Reading Location: [address] Reading Room BASIC METABOLIC [id number] 05:13:00 Test Item Value Reference Range Comments SODIUM (BEAKER) (test 131 meq/L 135-148 vuou=102) POTASSIUM (BEAKER) (test 2.8 meq/L 3.5-5.5 rcur=140) CHLORIDE (BEAKER) (test 101 meq/L 98-106 kpvi=886) CO2 (BEAKER) (test 17 meq/L 20-31 utky=204) BLOOD UREA NITROGEN 28 mg/dL 10-26 (BEAKER) (test dwik=266) CREATININE (BEAKER) (test 2.85 mg/dL 0.50-1.20 ijhq=242) GLUCOSE RANDOM (BEAKER) 91 mg/dL 70-110 (test hbgx=455) CALCIUM (BEAKER) (test 9.0 mg/dL 8.5-10.5 efga=688) EGFR (BEAKER) (test 18 mL/min/1.73 sq m ESTIMATED GFR IS NOT crtf=8513) ACCURATE CREATININE CLEARANCE IN PREDICTING GLOMERULAR FILTRATION RATE. ESTIMATED GFR IS NOT APPLICABLE FOR DIALYSIS PATIENTS. CBC W/PLT COUNT & AUTO [id number] 04:39:00 Test Item Value Reference Range Comments WHITE BLOOD CELL COUNT (BEAKER) 5.4 K/ L 4.0-10.0 (test zjnx=148) RED BLOOD CELL COUNT (BEAKER) 2.26 M/ L 4.00-5.00 (test kjtc=489) HEMOGLOBIN (BEAKER) (test 7.2 GM/DL 12.0-15.5 lbuo=235) HEMATOCRIT (BEAKER) (test 21.3 % 36.0-46.0 ivyy=726) MEAN CORPUSCULAR VOLUME 94.2 fL 82.0-99.0 (BEAKER) (test ikwr=822) MEAN CORPUSCULAR HEMOGLOBIN 31.9 pg 27.0-33.0 (BEAKER) (test daac=299) MEAN CORPUSCULAR HEMOGLOBIN 33.8 GM/DL 32.0-36.0 CONC (BEAKER) (test qglp=730) RED CELL DISTRIBUTION WIDTH 17.1 % 12.0-15.0 (BEAKER) (test swnr=320) PLATELET COUNT (BEAKER) (test 98 K/CU MM 150-430 vuso=275) MEAN PLATELET VOLUME (BEAKER) 10.4 fL 6.0-11.5 MPV-Approximately 20% (test kehe=497) positive bias due to method change. NUCLEATED RED BLOOD CELLS 0 /100 WBC 0-0 (BEAKER) (test gcug=034) NEUTROPHILS RELATIVE PERCENT 77 % (BEAKER) (test nyio=553) LYMPHOCYTES RELATIVE PERCENT 7 % (BEAKER) (test ytmc=606) MONOCYTES RELATIVE PERCENT 10 % (BEAKER) (test lzuy=312) EOSINOPHILS RELATIVE PERCENT 5 % (BEAKER) (test ouhq=531) BASOPHILS RELATIVE PERCENT 1 % (BEAKER) (test ysjq=947) NEUTROPHILS ABSOLUTE COUNT 4.15 K/ L 1.80-8.00 (BEAKER) (test clcy=762) LYMPHOCYTES ABSOLUTE COUNT 0.35 K/ L 1.48-4.50 (BEAKER) (test vjiw=163) MONOCYTES ABSOLUTE COUNT 0.55 K/ L 0.00-1.30 (BEAKER) (test xngc=351) EOSINOPHILS ABSOLUTE COUNT 0.27 K/ L 0.00-0.50 (BEAKER) (test fkje=451) BASOPHILS ABSOLUTE COUNT 0.04 K/ L 0.00-0.20 (BEAKER) (test ijil=708) IMMATURE GRANULOCYTES-RELATIVE 0 % 0-0 PERCENT (BEAKER) (test agjq=7253) BASIC METABOLIC [id number] 19:11:00 Test Item Value Reference Range Comments SODIUM (BEAKER) (test 130 meq/L 135-148 xrqq=135) POTASSIUM (BEAKER) (test 3.8 meq/L 3.5-5.5 Specimen slightly ggfm=430) hemolyzed CHLORIDE (BEAKER) (test 100 meq/L 98-106 kuzf=633) CO2 (BEAKER) (test 17 meq/L 20-31 poka=981) BLOOD UREA NITROGEN 27 mg/dL 10-26 (BEAKER) (test yxzx=588) CREATININE (BEAKER) (test 2.86 mg/dL 0.50-1.20 Specimen slightly ascw=598) hemolyzed GLUCOSE RANDOM (BEAKER) 97 mg/dL 70-110 (test vfsp=426) CALCIUM (BEAKER) (test 8.8 mg/dL 8.5-10.5 kadr=991) EGFR (BEAKER) (test 18 mL/min/1.73 sq m ESTIMATED GFR IS NOT otfd=4555) ACCURATE CREATININE CLEARANCE IN PREDICTING GLOMERULAR FILTRATION RATE. ESTIMATED GFR IS NOT APPLICABLE FOR DIALYSIS PATIENTS. CT, BRAIN, WITHOUT [id number] 17:56:00Reason for exam:->ALTERED MENTAL STATUSReason for exam:->BLOATEDReason [...] Silver Verified Date/Time: 05/23/2018 17:56:33 Reading Location: [facility] Radiology Reading Room COMPREHENSIVE METABOLIC [id number] 16:54:00 Test Item Value Reference Range Comments TOTAL PROTEIN (BEAKER) 7.2 gm/dL 6.0-8.5 Specimen slightly (test vdza=208) hemolyzed ALBUMIN (BEAKER) (test 3.5 g/dL 3.5-5.0 Specimen slightly btsy=8959) hemolyzed ALKALINE PHOSPHATASE 122 U/L 30-115 (BEAKER) (test aori=837) BILIRUBIN TOTAL (BEAKER) 1.5 mg/dL 0.1-1.3 Specimen slightly (test scfe=271) hemolyzed SODIUM (BEAKER) (test 131 meq/L 135-148 mvgw=548) POTASSIUM (BEAKER) (test 2.9 meq/L 3.5-5.5 Specimen slightly vcgt=029) hemolyzed CHLORIDE (BEAKER) (test 101 meq/L 98-106 btvz=509) CO2 (BEAKER) (test 16 meq/L 20-31 gfar=981) BLOOD UREA NITROGEN 27 mg/dL 10-26 (BEAKER) (test bmpn=652) CREATININE (BEAKER) (test 2.98 mg/dL 0.50-1.20 Specimen slightly nfsq=183) hemolyzed GLUCOSE RANDOM (BEAKER) 99 mg/dL 70-110 (test gssf=122) CALCIUM (BEAKER) (test 8.9 mg/dL 8.5-10.5 bejj=727) AST (SGOT) (BEAKER) (test 53 U/L 5-40 Specimen slightly ksxb=961) hemolyzed ALT (SGPT) (BEAKER) (test 23 U/L 6-50 Specimen slightly rcoh=131) hemolyzed EGFR (BEAKER) (test 17 mL/min/1.73 sq m ESTIMATED GFR IS NOT uqoq=4477) ACCURATE CREATININE CLEARANCE IN PREDICTING GLOMERULAR FILTRATION RATE. ESTIMATED GFR IS NOT APPLICABLE FOR DIALYSIS PATIENTS. [id number] 16:38:00 Test Item Value Reference Range Comments LIPASE (BEAKER) (test atim=288) 82 U/L 8-78 PROTHROMBIN [id number] 16:28:00 Test Item Value Reference Range Comments PROTIME (BEAKER) (test yhze=249) 16.1 seconds 11.8-14.4 INR (BEAKER) (test vjhi=807) 1.3 1.2-1.5 RECOMMENDED COUMADIN/WARFARIN INR THERAPY RANGESSTANDARD DOSE: 2.0 - 3.0 Includes: PROPHYLAXIS forvenous thrombosis, systemic embolization; TREATMENT for venous thrombosis and/or pulmonary embolus.HIGH RISK: Target INR is 2.5-3.5 for patients with mechanical heart valves.CBC W/PLT COUNT & AUTO [id number] 16:26:00 Test Item Value Reference Range Comments WHITE BLOOD CELL COUNT (BEAKER) 7.1 K/ L 4.0-10.0 (test kowe=126) RED BLOOD CELL COUNT (BEAKER) 2.50 M/ L 4.00-5.00 (test twea=413) HEMOGLOBIN (BEAKER) (test 8.0 GM/DL 12.0-15.5 uzyw=746) HEMATOCRIT (BEAKER) (test 24.1 % 36.0-46.0 zmhj=345) MEAN CORPUSCULAR VOLUME 96.4 fL 82.0-99.0 (BEAKER) (test bljo=640) MEAN CORPUSCULAR HEMOGLOBIN 32.0 pg 27.0-33.0 (BEAKER) (test lzou=437) MEAN CORPUSCULAR HEMOGLOBIN 33.2 GM/DL 32.0-36.0 CONC (BEAKER) (test dgef=742) RED CELL DISTRIBUTION WIDTH 17.3 % 12.0-15.0 (BEAKER) (test vzjw=680) PLATELET COUNT (BEAKER) (test 115 K/CU MM 150-430 akxh=835) MEAN PLATELET VOLUME (BEAKER) 11.3 fL 6.0-11.5 MPV-Approximately 20% (test niua=713) positive bias due to method change. NUCLEATED RED BLOOD CELLS 0 /100 WBC 0-0 (BEAKER) (test vzkv=707) NEUTROPHILS RELATIVE PERCENT 90 % (BEAKER) (test evsu=613) LYMPHOCYTES RELATIVE PERCENT 4 % (BEAKER) (test uvoi=784) MONOCYTES RELATIVE PERCENT 4 % (BEAKER) (test glmp=343) EOSINOPHILS RELATIVE PERCENT 1 % (BEAKER) (test ihaq=868) BASOPHILS RELATIVE PERCENT 1 % (BEAKER) (test gbbj=008) NEUTROPHILS ABSOLUTE COUNT 6.34 K/ L 1.80-8.00 (BEAKER) (test yjzd=700) LYMPHOCYTES ABSOLUTE COUNT 0.25 K/ L 1.48-4.50 (BEAKER) (test elra=299) MONOCYTES ABSOLUTE COUNT 0.30 K/ L 0.00-1.30 (BEAKER) (test vdeg=316) EOSINOPHILS ABSOLUTE COUNT 0.10 K/ L 0.00-0.50 (BEAKER) (test nyxw=566) BASOPHILS ABSOLUTE COUNT 0.04 K/ L 0.00-0.20 (BEAKER) (test wvmj=687) IMMATURE GRANULOCYTES-RELATIVE 0 % 0-0 PERCENT (BEAKER) (test yylv=9797) RAD, CHEST, 1 VIEW, NON [id number] 16:22:00Reason for exam:->altered mental statusShould this be performed at the bedside?->YesIs the patient ?->NoFINAL REPORT CHEST AP PORTABLE History provided: Altered mental status Heart size normal. Lungs clear and vascularity normal. IMPRESSION: Clear chest. Signed: Gonzalo Serrano MDReport Verified Date/ Time: 05/23/2018 16:22:47 Reading Location: [facility] Radiology Reading Room URINALYSIS W/ [id number] 16:19:00 Test Item Value Reference Range Comments COLOR (BEAKER) (test nqqf=906) Yellow CLARITY (BEAKER) (test twyu=520) Hazy SPECIFIC GRAVITY UA (BEAKER) (test dsrp=338) 1.016 1.001-1.035 PH UA (BEAKER) (test kgqb=049) 5.0 5.0-8.0 PROTEIN UA (BEAKER) (test aivn=388) Negative Negative GLUCOSE UA (BEAKER) (test ajct=771) Negative Negative KETONES UA (BEAKER) (test vwzu=299) Negative Negative BILIRUBIN UA (BEAKER) (test vxyn=795) Negative Negative BLOOD UA (BEAKER) (test ssvs=948) Negative Negative NITRITE UA (BEAKER) (test olki=975) Negative Negative LEUKOCYTE ESTERASE UA (BEAKER) (test xokg=951) Negative Negative UROBILINOGEN UA (BEAKER) (test ezfy=575) < mg/dL 0.2-1.0 RBC UA (BEAKER) (test odgj=507) 1 /HPF WBC UA (BEAKER) (test ujmt=639) 1 /HPF BACTERIA (BEAKER) (test tfep=156) Rare MUCUS (BEAKER) (test qvqo=1240) Rare SQUAMOUS EPITHELIAL (BEAKER) (test sezf=586) < /HPF HYALINE CASTS (BEAKER) (test tkow=904) 4 /LPF SOURCE(BEAKER) (test ypmk=2742) LACTIC ACID, VENOUS, WHOLE [id number] 16:12:00 Test Item Value Reference Range Comments LACTATE BLOOD VENOUS (2) 2.0 mmol/L 0.5-2.2 Specimen moderately hemolyzed (BEAKER) (test cflp=4468) Effective 12/07/2015: Units/Reference Range ChangeNew: 0.5-2.2 mmol/L Previous: 5 -20 mg/[id number] 16:07:00 Test Item Value Reference Range Comments AMMONIA (BEAKER) (test 90 mol/L 12-72 Specimen moderately hemolyzed zcpk=285) AFB CULTURE + [id number] 00:02:00 Test Item Value Reference Range Comments CULTURE (BEAKER) (test No acid-fast bacilli isolated iwrk=4379) in 42 days AFB SMEAR (BEAKER) (test No acid fast bacilli seen srjq=456) FUNGUS CULTURE + [id number] 12:57:00 Test Item Value Reference Range Comments CULTURE (BEAKER) (test No fungus isolated in 28 days htxd=9512) FUNGUS SMEAR (BEAKER) (test No fungi seen gdzg=2716) BODY FLUID CULTURE + GRAM [id number] 05:31:00 Test Item Value Reference Range Comments CULTURE (BEAKER) (test frfh=1476) No growth GRAM STAIN RESULT (BEAKER) (test <1+ WBCs hkrj=2220) GRAM STAIN RESULT (BEAKER) (test No organisms seen jowg=47056) ANAEROBIC [id number] 02:42:00 Test Item Value Reference Range Comments CULTURE (BEAKER) (test ibrh=8671) No anaerobes isolated POCT-GLUCOSE [id number] 13:58:00 Test Item Value Reference Range Comments POC-GLUCOSE METER (BEAKER) 119 mg/dL 70-110 TESTED AT [facility] [address] [facility] (test dwmv=6707) [facility] [address] CBC W/PLT COUNT & AUTO [id number] 09:22:00 Test Item Value Reference Range Comments WHITE BLOOD CELL COUNT (BEAKER) (test jhrw=720) 5.1 K/ L 3.5-10.5 RED BLOOD CELL COUNT (BEAKER) (test kfvf=070) 2.79 M/ L 3.93-5.22 HEMOGLOBIN (BEAKER) (test ttuy=904) 8.8 GM/DL 11.2-15.7 HEMATOCRIT (BEAKER) (test mjmo=018) 27.2 % 34.1-44.9 MEAN CORPUSCULAR VOLUME (BEAKER) (test lpvo=410) 97.5 fL 79.4-94.8 MEAN CORPUSCULAR HEMOGLOBIN (BEAKER) (test 31.5 pg 25.6-32.2 tnzq=765) MEAN CORPUSCULAR HEMOGLOBIN CONC (BEAKER) (test 32.4 GM/DL 32.2-35.5 pnhg=926) RED CELL DISTRIBUTION WIDTH (BEAKER) (test 18.8 % 11.7-14.4 uwzc=155) PLATELET COUNT (BEAKER) (test hybx=653) 86 K/CU MM 150-450 MEAN PLATELET VOLUME (BEAKER) (test ktqr=739) 12.6 fL 9.4-12.3 NUCLEATED RED BLOOD CELLS (BEAKER) (test 0 /100 WBC 0-0 keob=621) NEUTROPHILS RELATIVE PERCENT (BEAKER) (test 73 % ovxs=326) LYMPHOCYTES RELATIVE PERCENT (BEAKER) (test 7 % mnao=642) MONOCYTES RELATIVE PERCENT (BEAKER) (test 12 % intx=398) EOSINOPHILS RELATIVE PERCENT (BEAKER) (test 6 % airc=707) BASOPHILS RELATIVE PERCENT (BEAKER) (test 1 % gdeb=682) NEUTROPHILS ABSOLUTE COUNT (BEAKER) (test 3.63 K/ L 1.56-6.13 rztk=190) LYMPHOCYTES ABSOLUTE COUNT (BEAKER) (test 0.36 K/ L 1.18-3.74 qfwp=857) MONOCYTES ABSOLUTE COUNT (BEAKER) (test yhec=351) 0.61 K/ L 0.24-0.36 EOSINOPHILS ABSOLUTE COUNT (BEAKER) (test 0.31 K/ L 0.04-0.36 ubgu=615) BASOPHILS ABSOLUTE COUNT (BEAKER) (test swln=538) 0.06 K/ L 0.01-0.08 IMMATURE GRANULOCYTES-RELATIVE PERCENT (BEAKER) 0 % 0-1 (test fouw=5535) CBC (HEMOGRAM ONLY)2018-02-15 09:16:00 Test Item Value Reference Range Comments WHITE BLOOD CELL COUNT (BEAKER) (test ruxc=420) 5.1 K/ L 3.5-10.5 RED BLOOD CELL COUNT (BEAKER) (test agsn=950) 2.79 M/ L 3.93-5.22 HEMOGLOBIN (BEAKER) (test hbdg=785) 8.8 GM/DL 11.2-15.7 HEMATOCRIT (BEAKER) (test ixjc=538) 27.2 % 34.1-44.9 MEAN CORPUSCULAR VOLUME (BEAKER) (test oaof=185) 97.5 fL 79.4-94.8 MEAN CORPUSCULAR HEMOGLOBIN (BEAKER) (test 31.5 pg 25.6-32.2 hlzl=138) MEAN CORPUSCULAR HEMOGLOBIN CONC (BEAKER) (test 32.4 GM/DL 32.2-35.5 vfie=124) RED CELL DISTRIBUTION WIDTH (BEAKER) (test 18.8 % 11.7-14.4 zksv=040) PLATELET COUNT (BEAKER) (test ityb=458) 86 K/CU MM 150-450 MEAN PLATELET VOLUME (BEAKER) (test ovpq=164) 12.6 fL 9.4-12.3 NUCLEATED RED BLOOD CELLS (BEAKER) (test 0 /100 WBC 0-0 awgu=753) POCT-GLUCOSE [id number] 08:54:00 Test Item Value Reference Range Comments POC-GLUCOSE METER (BEAKER) 135 mg/dL 70-110 TESTED AT [facility] [address] [facility] (test tvku=3481) [facility] [address] [id number] 06:41:00 Test Item Value Reference Range Comments PHOSPHORUS (BEAKER) (test hsjo=141) 3.5 mg/dL 2.3-4.7 [id number] 06:41:00 Test Item Value Reference Range Comments MAGNESIUM (BEAKER) (test hhvu=369) 1.7 mg/dL 1.6-2.6 BASIC METABOLIC [id number] 06:41:00 Test Item Value Reference Range Comments SODIUM (BEAKER) (test 136 meq/L 136-145 nvlv=963) POTASSIUM (BEAKER) (test 3.2 meq/L 3.5-5.1 qwqo=838) CHLORIDE (BEAKER) (test 112 meq/L 98-107 defj=924) CO2 (BEAKER) (test 14 meq/L 22-29 luws=734) BLOOD UREA NITROGEN 14 mg/dL 7-21 (BEAKER) (test sobr=749) CREATININE (BEAKER) (test 0.71 mg/dL 0.57-1.25 xcyw=768) GLUCOSE RANDOM (BEAKER) 92 mg/dL 70-105 (test qhey=995) CALCIUM (BEAKER) (test 8.9 mg/dL 8.4-10.2 empo=808) EGFR (BEAKER) (test 88 mL/min/1.73 sq m ESTIMATED GFR IS NOT itqr=0841) ACCURATE CREATININE CLEARANCE IN PREDICTING GLOMERULAR FILTRATION RATE. ESTIMATED GFR IS NOT APPLICABLE FOR DIALYSIS PATIENTS. HEPATIC FUNCTION [id number] 06:41:00 Test Item Value Reference Range Comments TOTAL PROTEIN (BEAKER) (test iruu=140) 6.3 gm/dL 6.0-8.3 ALBUMIN (BEAKER) (test lnfk=5661) 3.9 g/dL 3.5-5.0 BILIRUBIN TOTAL (BEAKER) (test goju=148) 1.7 mg/dL 0.2-1.2 BILIRUBIN DIRECT (BEAKER) (test dpcj=074) 1.0 mg/dL 0.1-0.5 ALKALINE PHOSPHATASE (BEAKER) (test mqtz=907) 126 U/L 40-150 AST (SGOT) (BEAKER) (test enka=278) 118 U/L 5-34 ALT (SGPT) (BEAKER) (test txci=239) 56 U/L 6-55 BLOOD [id number] 06:00:00 Test Item Value Reference Range Comments CULTURE (BEAKER) (test vrmm=7516) No growth in 5 days BLOOD [id number] 06:00:00 Test Item Value Reference Range Comments CULTURE (BEAKER) (test kgew=3888) No growth in 5 days POCT-GLUCOSE [id number] 21:33:00 Test Item Value Reference Range Comments POC-GLUCOSE METER (BEAKER) 126 mg/dL 70-110 TESTED AT [facility] [address] [facility] (test qavj=6462) [facility] [address] BODY FLUID CELL COUNT WITH [id number] 20:39:00 Test Item Value Reference Range Comments APPEARANCE FLUID (BEAKER) (test wtdg=741) Bloody Clear COLOR FLUID (BEAKER) (test yxch=568) Red Colorless, Straw RBC FLUID (BEAKER) (test bakq=916) [address] /cu mm <=1 ADJUSTED WBC FLUID (BEAKER) (test npuo=7534) 206 /cu mm <=5 LINING CELLS (BEAKER) (test hdim=6022) 4 /cu mm <=1 NEUTROPHILS FLUID (BEAKER) (test xjrs=9931) 50 % LYMPHS FLUID (BEAKER) (test suaw=024) 5 % MONO/MACROPHAGE FLUID (BEAKER) (test nqon=751) 45 % EOSINOPHILS FLUID (BEAKER) (test ediw=223) 0 % BASO FLUID (BEAKER) (test nqig=288) 0 % CONTAINER BODY FLUID (BEAKER) (test jqcf=2485) EDTA Tube TISSUE [id number] 18:33:00Surgical Pathology Report Case: [id number] Authorizing Provider: Tamera Mayorga MD Collected: 02/11/2018 1338 Ordering Location: [place] [address] ICU Received: 02/11/2018 1613 Pathologist: Herminia Hope MD Specimen: Hernia Sac, Umbilical SKIN AND HERNIA SAC, EXCISION:- SKIN WITH ULCER, NECROSIS, HERNIA WITH FIBROSIS, ADHESION AND CHRONIC INFLAMMATION Signing Pathologist Direct Phone Line: [phone] umbilical hernia Hernia sac umbilical The specimen is received in a formalin-filled container labeled with the patient's information and labeled "umbilical hernial sac" and consists of hemorrhagic membranous tissue measuring 6 x 3 x 0.2 cm with overlying brown skin measuring 5.5 x 3 x 0.3 cm, submitted in A1 and A2. There are no areas of suspicion. CG/ew PerformedPOCT-GLUCOSE [id number] 18:27:00 Test Item Value Reference Range Comments POC-GLUCOSE METER (BEAKER) 152 mg/dL 70-110 TESTED AT [address] (test iqir=2844) [facility] [address] U/S, [id number] 17:34:00Send fluid for cell ct \\T\\ diff, [...] MDReport Verified Date/Time: 02/14/2018 17:34:56 Reading Location: [facility] B1 [id number] Ultrasound Reading Room [id number] 15:56:00 Test Item Value Reference Range Comments PARTIAL THROMBOPLASTIN TIME (BEAKER) (test 28.9 seconds 22.5-36.0 avax=097) PROTHROMBIN [id number] 15:55:00 Test Item Value Reference Range Comments PROTIME (BEAKER) (test znfc=554) 18.3 seconds 11.7-14.7 INR (BEAKER) (test tytg=209) 1.5 <=5.9 RECOMMENDED COUMADIN/WARFARIN INR THERAPY RANGESSTANDARD DOSE: 2.0 - 3.0 Includes: PROPHYLAXIS forvenous thrombosis, systemic embolization; TREATMENT for venous thrombosis and/or pulmonary embolus.HIGH RISK: Target INR is 2.5-3.5 for patients with mechanical heart valves.CBC W/PLT COUNT & AUTO [id number] 15:49:00 Test Item Value Reference Range Comments WHITE BLOOD CELL COUNT (BEAKER) (test iixz=712) 6.5 K/ L 3.5-10.5 RED BLOOD CELL COUNT (BEAKER) (test bkck=119) 2.69 M/ L 3.93-5.22 HEMOGLOBIN (BEAKER) (test ihqb=662) 8.5 GM/DL 11.2-15.7 HEMATOCRIT (BEAKER) (test xzpx=709) 25.9 % 34.1-44.9 MEAN CORPUSCULAR VOLUME (BEAKER) (test yspm=561) 96.3 fL 79.4-94.8 MEAN CORPUSCULAR HEMOGLOBIN (BEAKER) (test 31.6 pg 25.6-32.2 qgmo=378) MEAN CORPUSCULAR HEMOGLOBIN CONC (BEAKER) (test 32.8 GM/DL 32.2-35.5 hxxu=085) RED CELL DISTRIBUTION WIDTH (BEAKER) (test 19.0 % 11.7-14.4 vwuv=066) PLATELET COUNT (BEAKER) (test bvbm=221) 63 K/CU MM 150-450 MEAN PLATELET VOLUME (BEAKER) (test pdyp=739) 11.6 fL 9.4-12.3 NUCLEATED RED BLOOD CELLS (BEAKER) (test 0 /100 WBC 0-0 yomm=520) NEUTROPHILS RELATIVE PERCENT (BEAKER) (test 82 % hiyi=439) LYMPHOCYTES RELATIVE PERCENT (BEAKER) (test 4 % rqpk=661) MONOCYTES RELATIVE PERCENT (BEAKER) (test 9 % kyna=438) EOSINOPHILS RELATIVE PERCENT (BEAKER) (test 3 % xjrq=668) BASOPHILS RELATIVE PERCENT (BEAKER) (test 1 % cdse=118) NEUTROPHILS ABSOLUTE COUNT (BEAKER) (test 5.30 K/ L 1.56-6.13 abtb=316) LYMPHOCYTES ABSOLUTE COUNT (BEAKER) (test 0.26 K/ L 1.18-3.74 ujgo=666) MONOCYTES ABSOLUTE COUNT (BEAKER) (test ksun=671) 0.59 K/ L 0.24-0.36 EOSINOPHILS ABSOLUTE COUNT (BEAKER) (test 0.20 K/ L 0.04-0.36 uler=324) BASOPHILS ABSOLUTE COUNT (BEAKER) (test wxbx=757) 0.06 K/ L 0.01-0.08 IMMATURE GRANULOCYTES-RELATIVE PERCENT (BEAKER) 1 % 0-1 (test butg=9664) POCT-GLUCOSE [id number] 13:10:00 Test Item Value Reference Range Comments POC-GLUCOSE METER (BEAKER) 138 mg/dL 70-110 TESTED AT [address] (test ovru=3276) [facility] [address] SURGICALLY OBTAINED CULTURE + GRAM [id number] 11:29:00 Test Item Value Reference Range Comments CULTURE (BEAKER) (test rsww=9856) No growth GRAM STAIN RESULT (BEAKER) (test <1+ WBCs cidq=2792) GRAM STAIN RESULT (BEAKER) (test No organisms seen kuwk=60334) CBC W/PLT COUNT & AUTO [id number] 09:31:00 Test Item Value Reference Range Comments WHITE BLOOD CELL COUNT (BEAKER) (test ovmq=223) 5.3 K/ L 3.5-10.5 RED BLOOD CELL COUNT (BEAKER) (test wzzm=045) 2.76 M/ L 3.93-5.22 HEMOGLOBIN (BEAKER) (test mryl=432) 8.5 GM/DL 11.2-15.7 HEMATOCRIT (BEAKER) (test jsxp=539) 26.7 % 34.1-44.9 MEAN CORPUSCULAR VOLUME (BEAKER) (test taku=581) 96.7 fL 79.4-94.8 MEAN CORPUSCULAR HEMOGLOBIN (BEAKER) (test 30.8 pg 25.6-32.2 srkj=558) MEAN CORPUSCULAR HEMOGLOBIN CONC (BEAKER) (test 31.8 GM/DL 32.2-35.5 tmxh=939) RED CELL DISTRIBUTION WIDTH (BEAKER) (test 19.1 % 11.7-14.4 fdcz=364) PLATELET COUNT (BEAKER) (test aary=919) 82 K/CU MM 150-450 MEAN PLATELET VOLUME (BEAKER) (test jtxh=722) 11.5 fL 9.4-12.3 NUCLEATED RED BLOOD CELLS (BEAKER) (test 0 /100 WBC 0-0 qmvb=634) NEUTROPHILS RELATIVE PERCENT (BEAKER) (test 79 % gxfe=731) LYMPHOCYTES RELATIVE PERCENT (BEAKER) (test 6 % rmlw=552) MONOCYTES RELATIVE PERCENT (BEAKER) (test 10 % kuvu=323) EOSINOPHILS RELATIVE PERCENT (BEAKER) (test 3 % rsxr=012) BASOPHILS RELATIVE PERCENT (BEAKER) (test 1 % vchv=048) NEUTROPHILS ABSOLUTE COUNT (BEAKER) (test 4.21 K/ L 1.56-6.13 mzbr=778) LYMPHOCYTES ABSOLUTE COUNT (BEAKER) (test 0.33 K/ L 1.18-3.74 lwom=556) MONOCYTES ABSOLUTE COUNT (BEAKER) (test sila=446) 0.55 K/ L 0.24-0.36 EOSINOPHILS ABSOLUTE COUNT (BEAKER) (test 0.17 K/ L 0.04-0.36 dqik=200) BASOPHILS ABSOLUTE COUNT (BEAKER) (test tykp=906) 0.05 K/ L 0.01-0.08 IMMATURE GRANULOCYTES-RELATIVE PERCENT (BEAKER) 1 % 0-1 (test gxtm=7105) POCT-GLUCOSE [id number] 08:00:00 Test Item Value Reference Range Comments POC-GLUCOSE METER (BEAKER) 100 mg/dL 70-110 TESTED AT [facility] [address] [facility] (test nspg=6803) [facility] [address] [id number] 07:25:00 Test Item Value Reference Range Comments PHOSPHORUS (BEAKER) (test ylub=764) 3.0 mg/dL 2.3-4.7 [id number] 07:25:00 Test Item Value Reference Range Comments MAGNESIUM (BEAKER) (test iurx=297) 2.0 mg/dL 1.6-2.6 HEPATIC FUNCTION [id number] 07:25:00 Test Item Value Reference Range Comments TOTAL PROTEIN (BEAKER) (test oijj=976) 6.5 gm/dL 6.0-8.3 ALBUMIN (BEAKER) (test bhnz=7451) 4.2 g/dL 3.5-5.0 BILIRUBIN TOTAL (BEAKER) (test uszx=547) 1.7 mg/dL 0.2-1.2 BILIRUBIN DIRECT (BEAKER) (test back=245) 1.1 mg/dL 0.1-0.5 ALKALINE PHOSPHATASE (BEAKER) (test oqzu=142) 140 U/L 40-150 AST (SGOT) (BEAKER) (test fykr=652) 182 U/L 5-34 ALT (SGPT) (BEAKER) (test xpzz=870) 58 U/L 6-55 POCT-GLUCOSE [id number] 23:06:00 Test Item Value Reference Range Comments POC-GLUCOSE METER (BEAKER) 106 mg/dL 70-110 TESTED AT [address] (test mmmb=2524) [facility] [address] POCT-GLUCOSE [id number] 17:34:00 Test Item Value Reference Range Comments POC-GLUCOSE METER (BEAKER) 149 mg/dL 70-110 TESTED AT [address] (test uggi=0382) [facility] [address] POCT-GLUCOSE [id number] 11:39:00 Test Item Value Reference Range Comments POC-GLUCOSE METER (BEAKER) 117 mg/dL 70-110 TESTED AT [address] (test lagu=6516) [facility] [address] POCT-GLUCOSE [id number] 08:13:00 Test Item Value Reference Range Comments POC-GLUCOSE METER (BEAKER) 126 mg/dL 70-110 TESTED AT [address] (test ykms=4875) [facility] [address] [id number] 06:41:00 Test Item Value Reference Range Comments PHOSPHORUS (BEAKER) (test csds=462) 2.1 mg/dL 2.3-4.7 [id number] 06:41:00 Test Item Value Reference Range Comments MAGNESIUM (BEAKER) (test wrbk=782) 2.1 mg/dL 1.6-2.6 HEPATIC FUNCTION [id number] 06:41:00 Test Item Value Reference Range Comments TOTAL PROTEIN (BEAKER) (test kldl=568) 6.6 gm/dL 6.0-8.3 ALBUMIN (BEAKER) (test evgv=7912) 4.5 g/dL 3.5-5.0 BILIRUBIN TOTAL (BEAKER) (test prci=747) 1.0 mg/dL 0.2-1.2 BILIRUBIN DIRECT (BEAKER) (test atkb=714) 0.6 mg/dL 0.1-0.5 ALKALINE PHOSPHATASE (BEAKER) (test bosv=213) 56 U/L 40-150 AST (SGOT) (BEAKER) (test xwbh=154) 51 U/L 5-34 ALT (SGPT) (BEAKER) (test zbvr=044) 17 U/L 6-55 COMPREHENSIVE METABOLIC [id number] 06:41:00 Test Item Value Reference Range Comments TOTAL PROTEIN (BEAKER) 6.6 gm/dL 6.0-8.3 (test mwgn=380) ALBUMIN (BEAKER) (test 4.5 g/dL 3.5-5.0 vlxl=1884) ALKALINE PHOSPHATASE 56 U/L 40-150 (BEAKER) (test nmzi=786) BILIRUBIN TOTAL (BEAKER) 1.0 mg/dL 0.2-1.2 (test iatk=936) SODIUM (BEAKER) (test 138 meq/L 136-145 uwdg=374) POTASSIUM (BEAKER) (test 3.3 meq/L 3.5-5.1 aopf=402) CHLORIDE (BEAKER) (test 114 meq/L 98-107 chgd=441) CO2 (BEAKER) (test 15 meq/L 22-29 wjtg=173) BLOOD UREA NITROGEN 15 mg/dL 7-21 (BEAKER) (test idpr=805) CREATININE (BEAKER) (test 0.83 mg/dL 0.57-1.25 vfyf=540) GLUCOSE RANDOM (BEAKER) 108 mg/dL 70-105 (test qmiv=806) CALCIUM (BEAKER) (test 9.0 mg/dL 8.4-10.2 vzac=280) AST (SGOT) (BEAKER) (test 51 U/L 5-34 etkp=853) ALT (SGPT) (BEAKER) (test 17 U/L 6-55 stbv=119) EGFR (BEAKER) (test 73 mL/min/1.73 sq m ESTIMATED GFR IS NOT wzgl=4711) ACCURATE CREATININE CLEARANCE IN PREDICTING GLOMERULAR FILTRATION RATE. ESTIMATED GFR IS NOT APPLICABLE FOR DIALYSIS PATIENTS. CBC W/PLT COUNT & AUTO [id number] 06:25:00 Test Item Value Reference Range Comments WHITE BLOOD CELL COUNT (BEAKER) (test kpsd=559) 6.7 K/ L 3.5-10.5 RED BLOOD CELL COUNT (BEAKER) (test dshy=261) 2.17 M/ L 3.93-5.22 HEMOGLOBIN (BEAKER) (test bnhw=404) 6.8 GM/DL 11.2-15.7 HEMATOCRIT (BEAKER) (test zgxn=133) 21.8 % 34.1-44.9 MEAN CORPUSCULAR VOLUME (BEAKER) (test tqxx=007) 100.5 fL 79.4-94.8 MEAN CORPUSCULAR HEMOGLOBIN (BEAKER) (test 31.3 pg 25.6-32.2 uavt=931) MEAN CORPUSCULAR HEMOGLOBIN CONC (BEAKER) (test 31.2 GM/DL 32.2-35.5 gknb=574) RED CELL DISTRIBUTION WIDTH (BEAKER) (test 19.9 % 11.7-14.4 keaa=283) PLATELET COUNT (BEAKER) (test iefy=324) 84 K/CU MM 150-450 MEAN PLATELET VOLUME (BEAKER) (test jtql=881) 11.1 fL 9.4-12.3 NUCLEATED RED BLOOD CELLS (BEAKER) (test 0 /100 WBC 0-0 lgpx=326) NEUTROPHILS RELATIVE PERCENT (BEAKER) (test 84 % mdzz=389) LYMPHOCYTES RELATIVE PERCENT (BEAKER) (test 4 % nbdq=019) MONOCYTES RELATIVE PERCENT (BEAKER) (test 12 % mryp=315) EOSINOPHILS RELATIVE PERCENT (BEAKER) (test 0 % cwoc=127) BASOPHILS RELATIVE PERCENT (BEAKER) (test 0 % snxx=128) NEUTROPHILS ABSOLUTE COUNT (BEAKER) (test 5.59 K/ L 1.56-6.13 mvhl=725) LYMPHOCYTES ABSOLUTE COUNT (BEAKER) (test 0.25 K/ L 1.18-3.74 ujrc=618) MONOCYTES ABSOLUTE COUNT (BEAKER) (test hohp=606) 0.77 K/ L 0.24-0.36 EOSINOPHILS ABSOLUTE COUNT (BEAKER) (test 0.02 K/ L 0.04-0.36 anaw=327) BASOPHILS ABSOLUTE COUNT (BEAKER) (test gopl=000) 0.00 K/ L 0.01-0.08 IMMATURE GRANULOCYTES-RELATIVE PERCENT (BEAKER) 1 % 0-1 (test gkpi=7389) SPIN/CONCENTRATION [id number] 15:23:00 Test Item Value Reference Range Comments CONCENTRATION CHARGED (BEAKER) (test xmkf=5395) Done POCT-GLUCOSE [id number] 08:15:00 Test Item Value Reference Range Comments POC-GLUCOSE METER (BEAKER) 147 mg/dL 70-110 TESTED AT [facility] [address] [facility] (test voyc=5501) [facility] [address] HIV-1 ANTIGEN WITH HIV-1/2 [id number] 06:57:00 Test Item Value Reference Range Comments HIV-1 ANTIGEN WITH HIV 1\\T\\2 ANTIBODY (2) Nonreactive Nonreactive (BEAKER) (test byif=8759) [id number] 06:35:00 Test Item Value Reference Range Comments PHOSPHORUS (BEAKER) (test dgda=229) 2.8 mg/dL 2.3-4.7 [id number] 06:35:00 Test Item Value Reference Range Comments MAGNESIUM (BEAKER) (test fgqm=870) 1.9 mg/dL 1.6-2.6 BASIC METABOLIC [id number] 06:35:00 Test Item Value Reference Range Comments SODIUM (BEAKER) (test 133 meq/L 136-145 ygul=744) POTASSIUM (BEAKER) (test 3.9 meq/L 3.5-5.1 vtvh=934) CHLORIDE (BEAKER) (test 111 meq/L 98-107 ytrc=262) CO2 (BEAKER) (test 13 meq/L 22-29 pckp=743) BLOOD UREA NITROGEN 18 mg/dL 7-21 (BEAKER) (test xgem=311) CREATININE (BEAKER) (test 0.86 mg/dL 0.57-1.25 irpi=547) GLUCOSE RANDOM (BEAKER) 142 mg/dL 70-105 (test arlk=824) CALCIUM (BEAKER) (test 8.7 mg/dL 8.4-10.2 zyks=428) EGFR (BEAKER) (test 70 mL/min/1.73 sq m ESTIMATED GFR IS NOT wjvg=3659) ACCURATE CREATININE CLEARANCE IN PREDICTING GLOMERULAR FILTRATION RATE. ESTIMATED GFR IS NOT APPLICABLE FOR DIALYSIS PATIENTS. HEPATIC FUNCTION [id number] 06:35:00 Test Item Value Reference Range Comments TOTAL PROTEIN (BEAKER) (test amqf=982) 6.4 gm/dL 6.0-8.3 ALBUMIN (BEAKER) (test jags=8666) 4.0 g/dL 3.5-5.0 BILIRUBIN TOTAL (BEAKER) (test ihlm=486) 1.5 mg/dL 0.2-1.2 BILIRUBIN DIRECT (BEAKER) (test wdmf=871) 0.9 mg/dL 0.1-0.5 ALKALINE PHOSPHATASE (BEAKER) (test ydwh=713) 46 U/L 40-150 AST (SGOT) (BEAKER) (test esnm=636) 32 U/L 5-34 ALT (SGPT) (BEAKER) (test klbj=292) 12 U/L 6-55 CBC W/PLT COUNT & AUTO [id number] 06:26:00 Test Item Value Reference Range Comments WHITE BLOOD CELL COUNT (BEAKER) (test hazy=728) 6.4 K/ L 3.5-10.5 RED BLOOD CELL COUNT (BEAKER) (test vpxz=953) 2.47 M/ L 3.93-5.22 HEMOGLOBIN (BEAKER) (test npfg=837) 7.5 GM/DL 11.2-15.7 HEMATOCRIT (BEAKER) (test pdln=695) 24.3 % 34.1-44.9 MEAN CORPUSCULAR VOLUME (BEAKER) (test alve=081) 98.4 fL 79.4-94.8 MEAN CORPUSCULAR HEMOGLOBIN (BEAKER) (test 30.4 pg 25.6-32.2 xwfz=521) MEAN CORPUSCULAR HEMOGLOBIN CONC (BEAKER) (test 30.9 GM/DL 32.2-35.5 nghf=417) RED CELL DISTRIBUTION WIDTH (BEAKER) (test 20.0 % 11.7-14.4 fxko=987) PLATELET COUNT (BEAKER) (test gijq=989) 85 K/CU MM 150-450 MEAN PLATELET VOLUME (BEAKER) (test fmsb=595) 11.3 fL 9.4-12.3 NUCLEATED RED BLOOD CELLS (BEAKER) (test 0 /100 WBC 0-0 hade=940) NEUTROPHILS RELATIVE PERCENT (BEAKER) (test 92 % pkpy=774) LYMPHOCYTES RELATIVE PERCENT (BEAKER) (test 3 % opvh=367) MONOCYTES RELATIVE PERCENT (BEAKER) (test 5 % wgcu=376) EOSINOPHILS RELATIVE PERCENT (BEAKER) (test 0 % zthe=641) BASOPHILS RELATIVE PERCENT (BEAKER) (test 0 % wnms=409) NEUTROPHILS ABSOLUTE COUNT (BEAKER) (test 5.89 K/ L 1.56-6.13 wltp=936) LYMPHOCYTES ABSOLUTE COUNT (BEAKER) (test 0.19 K/ L 1.18-3.74 ximn=351) MONOCYTES ABSOLUTE COUNT (BEAKER) (test pjzo=702) 0.31 K/ L 0.24-0.36 EOSINOPHILS ABSOLUTE COUNT (BEAKER) (test 0.00 K/ L 0.04-0.36 encd=349) BASOPHILS ABSOLUTE COUNT (BEAKER) (test zunx=132) 0.00 K/ L 0.01-0.08 IMMATURE GRANULOCYTES-RELATIVE PERCENT (BEAKER) 1 % 0-1 (test cuxr=0406) POCT-GLUCOSE [id number] 00:47:00 Test Item Value Reference Range Comments POC-GLUCOSE METER (BEAKER) 220 mg/dL 70-110 TESTED AT [address] (test uleo=9076) [facility] [address] [id number] 19:57:00 Test Item Value Reference Range Comments PHOSPHORUS (BEAKER) (test jshb=214) 2.9 mg/dL 2.3-4.7 [id number] 19:57:00 Test Item Value Reference Range Comments MAGNESIUM (BEAKER) (test pkrw=537) 1.7 mg/dL 1.6-2.6 [id number] 16:27:00 Test Item Value Reference Range Comments PROTIME (BEAKER) (test tcvl=617) 18.7 seconds 11.7-14.7 INR (BEAKER) (test fchp=138) 1.6 <=5.9 PARTIAL THROMBOPLASTIN TIME (BEAKER) (test 36.5 seconds 22.5-36.0 cxvt=118) RECOMMENDED COUMADIN/WARFARIN INR THERAPY RANGESSTANDARD DOSE: 2.0 - 3.0 Includes: PROPHYLAXIS forvenous thrombosis, systemic embolization; TREATMENT for venous thrombosis and/or pulmonary embolus.HIGH RISK: Target INR is 2.5-3.5 for patients with mechanical heart valves.BASIC METABOLIC [id number] 16:24: 00 Test Item Value Reference Range Comments SODIUM (BEAKER) (test 136 meq/L 136-145 fntk=655) POTASSIUM (BEAKER) (test 3.7 meq/L 3.5-5.1 ecwu=986) CHLORIDE (BEAKER) (test 113 meq/L 98-107 dqjv=347) CO2 (BEAKER) (test 16 meq/L 22-29 mxrj=341) BLOOD UREA NITROGEN 20 mg/dL 7-21 (BEAKER) (test lpya=189) CREATININE (BEAKER) (test 1.03 mg/dL 0.57-1.25 ngwj=912) GLUCOSE RANDOM (BEAKER) 133 mg/dL 70-105 (test inyp=713) CALCIUM (BEAKER) (test 8.2 mg/dL 8.4-10.2 xfth=682) EGFR (BEAKER) (test 57 mL/min/1.73 sq m ESTIMATED GFR IS NOT qjel=8653) ACCURATE CREATININE CLEARANCE IN PREDICTING GLOMERULAR FILTRATION RATE. ESTIMATED GFR IS NOT APPLICABLE FOR DIALYSIS PATIENTS. CBC W/PLT COUNT & AUTO [id number] 16:00:00 Test Item Value Reference Range Comments WHITE BLOOD CELL COUNT (BEAKER) (test ewok=149) 4.6 K/ L 3.5-10.5 RED BLOOD CELL COUNT (BEAKER) (test sevi=644) 2.57 M/ L 3.93-5.22 HEMOGLOBIN (BEAKER) (test dthe=448) 7.9 GM/DL 11.2-15.7 HEMATOCRIT (BEAKER) (test pcbp=362) 24.9 % 34.1-44.9 MEAN CORPUSCULAR VOLUME (BEAKER) (test mszb=635) 96.9 fL 79.4-94.8 MEAN CORPUSCULAR HEMOGLOBIN (BEAKER) (test 30.7 pg 25.6-32.2 mttw=103) MEAN CORPUSCULAR HEMOGLOBIN CONC (BEAKER) (test 31.7 GM/DL 32.2-35.5 xanp=184) RED CELL DISTRIBUTION WIDTH (BEAKER) (test 20.0 % 11.7-14.4 fgbt=180) PLATELET COUNT (BEAKER) (test hsnw=909) 101 K/CU MM 150-450 MEAN PLATELET VOLUME (BEAKER) (test iurt=631) 10.5 fL 9.4-12.3 NUCLEATED RED BLOOD CELLS (BEAKER) (test 0 /100 WBC 0-0 oyyx=708) NEUTROPHILS RELATIVE PERCENT (BEAKER) (test 94 % hwlc=092) LYMPHOCYTES RELATIVE PERCENT (BEAKER) (test 3 % lkvq=519) MONOCYTES RELATIVE PERCENT (BEAKER) (test 2 % qqfg=305) EOSINOPHILS RELATIVE PERCENT (BEAKER) (test 1 % gugj=402) BASOPHILS RELATIVE PERCENT (BEAKER) (test 1 % nafn=723) NEUTROPHILS ABSOLUTE COUNT (BEAKER) (test 4.31 K/ L 1.56-6.13 drll=937) LYMPHOCYTES ABSOLUTE COUNT (BEAKER) (test 0.12 K/ L 1.18-3.74 pvaj=850) MONOCYTES ABSOLUTE COUNT (BEAKER) (test 0.10 K/ L 0.24-0.36 hyih=889) EOSINOPHILS ABSOLUTE COUNT (BEAKER) (test 0.03 K/ L 0.04-0.36 yqlt=353) BASOPHILS ABSOLUTE COUNT (BEAKER) (test 0.03 K/ L 0.01-0.08 ajre=107) IMMATURE GRANULOCYTES-RELATIVE PERCENT (BEAKER) 0 % 0-1 (test tbin=8323) HGB/HCT (H&H) - STAT [id number] 13:33:00 Test Item Value Reference Range Comments HEMOGLOBIN (BEAKER) (test eynv=997) 8.7 g/dL 12.0-15.0 HEMATOCRIT (BEAKER) (test jsjj=226) 26.0 % 36.0-45.0 THIS IS A VENOUS SAMPLECALCIUM, [id number] 13:33:00 Test Item Value Reference Range Comments CALCIUM IONIZED (BEAKER) (test lzlp=648) 1.07 mmol/L 1.12-1.27 PH, BLOOD (BEAKER) (test ayyv=9468) 7.28 GLUCOSE-STAT [id number] 13:33:00 Test Item Value Reference Range Comments GLUCOSE RANDOM (BEAKER) (test elyc=554) 122 mg/dL 70-110 THIS IS A VENOUS SAMPLETHIS IS A VENOUS SAMPLETHIS IS A VENOUS SAMPLESODIUM NA- STAT [id number] 13:32:00 Test Item Value Reference Range Comments SODIUM (BEAKER) (test vgwq=684) 135 meq/L 135-148 THIS IS A VENOUS SAMPLETHIS IS A VENOUS SAMPLETHIS IS A VENOUS SAMPLEPOTASSIUM- STAT [id number] 13:32:00 Test Item Value Reference Range Comments POTASSIUM (BEAKER) (test yply=854) 3.9 meq/L 3.6-5.5 THIS IS A VENOUS SAMPLETHIS IS A VENOUS SAMPLETHIS IS A VENOUS SAMPLEU/S, ABDOMINAL, [id number] 09:32:00Reason for exam:->ascites, acute renal failure, hydronephrosisShould [...] MDReport Verified Date/Time: 02/11/2018 09:32:36 Reading Location: [address] Ultrasound Reading Room Electronically signed by: BELA RIOS M.D. on 05/2018 09:32 AMPOCT-GLUCOSE [id number] 08:05:00 Test Item Value Reference Range Comments POC-GLUCOSE METER (BEAKER) 117 mg/dL 70-110 TESTED AT [facility] [address] [facility] (test yqxw=2817) [facility] [address] COMPREHENSIVE METABOLIC [id number] 07:53:00 Test Item Value Reference Range Comments TOTAL PROTEIN (BEAKER) 6.1 gm/dL 6.0-8.3 (test wmko=087) ALBUMIN (BEAKER) (test 3.2 g/dL 3.5-5.0 uyzf=2785) ALKALINE PHOSPHATASE 58 U/L 40-150 (BEAKER) (test beqo=689) BILIRUBIN TOTAL (BEAKER) 1.6 mg/dL 0.2-1.2 (test sphs=101) SODIUM (BEAKER) (test 135 meq/L 136-145 hapl=437) POTASSIUM (BEAKER) (test 3.5 meq/L 3.5-5.1 vyvc=488) CHLORIDE (BEAKER) (test 111 meq/L 98-107 vjzk=365) CO2 (BEAKER) (test 17 meq/L 22-29 ceii=009) BLOOD UREA NITROGEN 25 mg/dL 7-21 (BEAKER) (test pjct=606) CREATININE (BEAKER) (test 1.29 mg/dL 0.57-1.25 lufc=559) GLUCOSE RANDOM (BEAKER) 110 mg/dL 70-105 (test ctav=251) CALCIUM (BEAKER) (test 8.5 mg/dL 8.4-10.2 hoen=176) AST (SGOT) (BEAKER) (test 39 U/L 5-34 ypmq=133) ALT (SGPT) (BEAKER) (test 13 U/L 6-55 axyx=199) EGFR (BEAKER) (test 44 mL/min/1.73 sq m ESTIMATED GFR IS NOT zxap=9436) ACCURATE CREATININE CLEARANCE IN PREDICTING GLOMERULAR FILTRATION RATE. ESTIMATED GFR IS NOT APPLICABLE FOR DIALYSIS PATIENTS. CT, [id number] 07:50:00FINAL REPORT HISTORY : Hernia, complicated Technique: [...] Verified Date/ Time: 02/11/2018 07:50:19 Reading Location: [facility] Diagnostic Imaging Reading Room - [place] [id number] Electronically signed by: JESSE HATHAWAY M.D. on 2017 07:50 [id number] 07:06:00 Test Item Value Reference Range Comments PROTIME (BEAKER) (test hkqt=701) 17.3 seconds 11.7-14.7 INR (BEAKER) (test kywm=152) 1.4 <=5.9 PARTIAL THROMBOPLASTIN TIME (BEAKER) (test 34.7 seconds 22.5-36.0 cxju=613) RECOMMENDED COUMADIN/WARFARIN INR THERAPY RANGESSTANDARD DOSE: 2.0 - 3.0 Includes: PROPHYLAXIS forvenous thrombosis, systemic embolization; TREATMENT for venous thrombosis and/or pulmonary embolus.HIGH RISK: Target INR is 2.5-3.5 for patients with mechanical heart valves.CBC W/PLT COUNT & AUTO [id number] 06:22:00 Test Item Value Reference Range Comments WHITE BLOOD CELL COUNT (BEAKER) (test mrma=134) 4.1 K/ L 3.5-10.5 RED BLOOD CELL COUNT (BEAKER) (test zunj=106) 2.36 M/ L 3.93-5.22 HEMOGLOBIN (BEAKER) (test shfv=107) 7.5 GM/DL 11.2-15.7 HEMATOCRIT (BEAKER) (test wenv=055) 22.9 % 34.1-44.9 MEAN CORPUSCULAR VOLUME (BEAKER) (test naxi=719) 97.0 fL 79.4-94.8 MEAN CORPUSCULAR HEMOGLOBIN (BEAKER) (test 31.8 pg 25.6-32.2 ibkf=248) MEAN CORPUSCULAR HEMOGLOBIN CONC (BEAKER) (test 32.8 GM/DL 32.2-35.5 nupx=021) RED CELL DISTRIBUTION WIDTH (BEAKER) (test 21.1 % 11.7-14.4 ciqf=063) PLATELET COUNT (BEAKER) (test qpok=063) 131 K/CU MM 150-450 MEAN PLATELET VOLUME (BEAKER) (test fony=259) 11.0 fL 9.4-12.3 NUCLEATED RED BLOOD CELLS (BEAKER) (test 0 /100 WBC 0-0 jmso=865) NEUTROPHILS RELATIVE PERCENT (BEAKER) (test 69 % cxeu=920) LYMPHOCYTES RELATIVE PERCENT (BEAKER) (test 11 % kyqw=035) MONOCYTES RELATIVE PERCENT (BEAKER) (test 15 % qbjq=322) EOSINOPHILS RELATIVE PERCENT (BEAKER) (test 4 % bgav=392) BASOPHILS RELATIVE PERCENT (BEAKER) (test 1 % qgig=529) NEUTROPHILS ABSOLUTE COUNT (BEAKER) (test 2.82 K/ L 1.56-6.13 wcpl=773) LYMPHOCYTES ABSOLUTE COUNT (BEAKER) (test 0.43 K/ L 1.18-3.74 izau=170) MONOCYTES ABSOLUTE COUNT (BEAKER) (test 0.60 K/ L 0.24-0.36 rzpy=452) EOSINOPHILS ABSOLUTE COUNT (BEAKER) (test 0.17 K/ L 0.04-0.36 pnzj=918) BASOPHILS ABSOLUTE COUNT (BEAKER) (test 0.03 K/ L 0.01-0.08 ebzm=718) IMMATURE GRANULOCYTES-RELATIVE PERCENT (BEAKER) 1 % 0-1 (test vtro=2155) POCT-GLUCOSE [id number] 00:49:00 Test Item Value Reference Range Comments POC-GLUCOSE METER (BEAKER) 95 mg/dL 70-110 TESTED AT [facility] [address] [facility] (test zswc=7344) [facility] [address] [id number] 21:49:00 Test Item Value Reference Range Comments POTASSIUM (BEAKER) (test 3.9 meq/L 3.5-5.1 Specimen moderately hemolyzed mwre=658) SODIUM, RANDOM [id number] 19:06:00 Test Item Value Reference Range Comments SODIUM URINE (BEAKER) (test ruuw=646) < meq/L Reference Range: No NormalsCREATININE, RANDOM [id number] 19:02:00 Test Item Value Reference Range Comments CREATININE URINE (BEAKER) (test izvp=344) 160.3 mg/dL Reference Range: No NormalsPROTEIN, RANDOM [id number] 19:02:00 Test Item Value Reference Range Comments PROTEIN, URINE (BEAKER) (test irwu=7343) 19 mg/dL 0-14 SCREEN, [id number] 18:47:00 Test Item Value Reference Range Comments TEST URINE (BEAKER) (test yubs=820) Negative POCT-GLUCOSE [id number] 18:08:00 Test Item Value Reference Range Comments POC-GLUCOSE METER (BEAKER) 183 mg/dL 70-110 TESTED AT [address] (test kfun=4857) [facility] [address] [id number] 13:33:00 Test Item Value Reference Range Comments POTASSIUM (BEAKER) (test qfve=391) 3.2 meq/L 3.5-5.1 CBC (HEMOGRAM ONLY)[id number] 13:20:00 Test Item Value Reference Range Comments WHITE BLOOD CELL COUNT 4.6 K/ L 3.5-10.5 (BEAKER) (test wtcc=965) RED BLOOD CELL COUNT (BEAKER) 2.47 M/ L 3.93-5.22 (test psif=654) HEMOGLOBIN (BEAKER) (test 7.6 GM/DL 11.2-15.7 sdte=289) HEMATOCRIT (BEAKER) (test 23.0 % 34.1-44.9 irdr=295) MEAN CORPUSCULAR VOLUME 93.1 fL 79.4-94.8 Discordant from previous (BEAKER) (test ctsb=734) results. Clinical correlation suggested. MEAN CORPUSCULAR HEMOGLOBIN 30.8 pg 25.6-32.2 (BEAKER) (test jpxx=141) MEAN CORPUSCULAR HEMOGLOBIN 33.0 GM/DL 32.2-35.5 CONC (BEAKER) (test zsco=214) RED CELL DISTRIBUTION WIDTH 20.5 % 11.7-14.4 (BEAKER) (test vusr=177) PLATELET COUNT (BEAKER) (test 111 K/CU MM 150-450 evgb=884) MEAN PLATELET VOLUME (BEAKER) 11.2 fL 9.4-12.3 (test vuxe=935) NUCLEATED RED BLOOD CELLS 0 /100 WBC 0-0 (BEAKER) (test fmpc=073) POCT-GLUCOSE [id number] 11:51:00 Test Item Value Reference Range Comments POC-GLUCOSE METER (BEAKER) 123 mg/dL 70-110 TESTED AT [place] [id number] [facility] (test nmgv=1464) [facility] [address] POCT-GLUCOSE [id number] 06:46:00 Test Item Value Reference Range Comments POC-GLUCOSE METER (BEAKER) 237 mg/dL 70-110 TESTED AT [facility] [address] (test itpr=7837) [facility] [address] CBC (HEMOGRAM ONLY)2018-02-10 06:44:00 Test Item Value Reference Range Comments WHITE BLOOD CELL COUNT (BEAKER) (test rgmp=575) 2.8 K/ L 3.5-10.5 RED BLOOD CELL COUNT (BEAKER) (test bzub=538) 2.34 M/ L 3.93-5.22 HEMOGLOBIN (BEAKER) (test vsuu=141) 7.2 GM/DL 11.2-15.7 HEMATOCRIT (BEAKER) (test qhvh=437) 22.8 % 34.1-44.9 MEAN CORPUSCULAR VOLUME (BEAKER) (test scdy=717) 97.4 fL 79.4-94.8 MEAN CORPUSCULAR HEMOGLOBIN (BEAKER) (test 30.8 pg 25.6-32.2 pcyq=886) MEAN CORPUSCULAR HEMOGLOBIN CONC (BEAKER) (test 31.6 GM/DL 32.2-35.5 pbab=400) RED CELL DISTRIBUTION WIDTH (BEAKER) (test 20.3 % 11.7-14.4 syej=851) PLATELET COUNT (BEAKER) (test behg=874) 102 K/CU MM 150-450 MEAN PLATELET VOLUME (BEAKER) (test mqhj=014) 11.3 fL 9.4-12.3 NUCLEATED RED BLOOD CELLS (BEAKER) (test 0 /100 WBC 0-0 tqqf=271) RAPID DRUG SCREEN, [id number] 06:12:00 Test Item Value Reference Range Comments BARBITURATE URINE (BEAKER) (test arpx=894) Negative Negative BENZODIAZEPINE SCREEN URINE (BEAKER) (test Negative Negative gvch=145) COCAINE (METAB.) SCREEN (BEAKER) (test tehx=1210) Negative Negative METHADONE SCREEN (BEAKER) (test kjcu=3645) Negative Negative OPIATE SCREEN URINE (BEAKER) (test cnnt=207) Negative Negative CANNABINOID SCREEN URINE (BEAKER) (test ykjt=924) Negative Negative AMPH/METHAMPH SCREEN (BEAKER) (test oagz=1411) Negative Negative PHENCYCLIDINE SCREEN URINE (BEAKER) (test kgne=811) Negative Negative OXYCODONE SCREEN URINE (BEAKER) (test nnlu=8776) Negative Negative DRUG CUTOFF CONC.Cocaine 300 ng/mL Cannabinoid 50 ng/mL Benzodiazepine 200 ng/mLBarbiturate 200 ng/ mLPhencyclidine 25 ng/mLOpiate 300 ng/mLMethadone 300 ng/mLAmphetamine/ 1000 ng/mL MethamphetamineOxycodone 300 ng/mLThis assay provides an unconfirmed qualitative test result for the clinical management of patients in emergency situations. Chain of custody not maintained. Some plfa-yzk-sklnfib medications, as well as adulterants, may cause inaccurate results. Clinical correlation should be applied. A more comprehensive drug screen or confirmation of a detected drug may be performed upon request.URINALYSIS W/ REFLEX URINE [id number] 04:33:00 Test Item Value Reference Range Comments COLOR (BEAKER) (test qxck=419) Yellow CLARITY (BEAKER) (test adxy=131) Hazy SPECIFIC GRAVITY UA (BEAKER) (test kghz=377) 1.013 1.001-1.035 PH UA (BEAKER) (test sqai=922) 6.0 5.0-8.0 PROTEIN UA (BEAKER) (test divn=308) 10 mg/dL Negative GLUCOSE UA (BEAKER) (test awwy=215) Negative Negative KETONES UA (BEAKER) (test pnai=610) Trace Negative BILIRUBIN UA (BEAKER) (test txsj=598) Negative Negative BLOOD UA (BEAKER) (test sxqv=051) Negative Negative NITRITE UA (BEAKER) (test ddir=628) Negative Negative LEUKOCYTE ESTERASE UA (BEAKER) (test kgwy=639) Negative Negative UROBILINOGEN UA (BEAKER) (test zhke=835) 0.2 mg/dL 0.2-1.0 RBC UA (BEAKER) (test wwdk=050) < /HPF WBC UA (BEAKER) (test pybb=688) 2 /HPF BACTERIA (BEAKER) (test pdwh=146) Rare MUCUS (BEAKER) (test ffkg=9405) Rare SQUAMOUS EPITHELIAL (BEAKER) (test jmhm=103) 8 /HPF HYALINE CASTS (BEAKER) (test zjct=311) 70 /LPF AMORPHOUS CRYSTALS (BEAKER) (test crod=9115) Rare SOURCE(BEAKER) (test rtmn=7024) BASIC METABOLIC [id number] 02:35:00 Test Item Value Reference Range Comments SODIUM (BEAKER) (test 137 meq/L 136-145 sxtk=912) POTASSIUM (BEAKER) (test 2.9 meq/L 3.5-5.1 auow=655) CHLORIDE (BEAKER) (test 109 meq/L 98-107 hzsb=339) CO2 (BEAKER) (test 14 meq/L 22-29 zqvw=982) BLOOD UREA NITROGEN 31 mg/dL 7-21 (BEAKER) (test eerd=909) CREATININE (BEAKER) (test 1.98 mg/dL 0.57-1.25 hnso=776) GLUCOSE RANDOM (BEAKER) 146 mg/dL 70-105 (test rinh=164) CALCIUM (BEAKER) (test 8.9 mg/dL 8.4-10.2 oqex=412) EGFR (BEAKER) (test 27 mL/min/1.73 sq m ESTIMATED GFR IS NOT pdgo=0608) ACCURATE CREATININE CLEARANCE IN PREDICTING GLOMERULAR FILTRATION RATE. ESTIMATED GFR IS NOT APPLICABLE FOR DIALYSIS PATIENTS. [id number] 02:35:00 Test Item Value Reference Range Comments MAGNESIUM (BEAKER) (test qnqs=387) 2.0 mg/dL 1.6-2.6 HEPATIC FUNCTION [id number] 02:35:00 Test Item Value Reference Range Comments TOTAL PROTEIN (BEAKER) (test nmjg=800) 7.4 gm/dL 6.0-8.3 ALBUMIN (BEAKER) (test jwdm=1740) 3.8 g/dL 3.5-5.0 BILIRUBIN TOTAL (BEAKER) (test xsgn=322) 1.8 mg/dL 0.2-1.2 BILIRUBIN DIRECT (BEAKER) (test frrs=427) 0.9 mg/dL 0.1-0.5 ALKALINE PHOSPHATASE (BEAKER) (test omwl=101) 73 U/L 40-150 AST (SGOT) (BEAKER) (test eraj=391) 38 U/L 5-34 ALT (SGPT) (BEAKER) (test fzau=158) 14 U/L 6-55 BLOOD GAS, [id number] 02:34:00 Test Item Value Reference Range Comments PH VENOUS (BEAKER) (test keck=608) 7.42 7.32-7.42 PCO2 VENOUS (BEAKER) (test ckkl=280) 28 mmHg 41-51 PO2 VENOUS (BEAKER) (test zeft=719) 34 mmHg 25-40 O2 SATURATION VENOUS (BEAKER) (test ygmq=912) 67.6 % 40.0-70.0 HCO3 VENOUS (BEAKER) (test vbdl=360) 17 mmol/L 21-29 BASE EXCESS VENOUS (BEAKER) (test mpje=490) -6.2 mmol/L -2.0-3.0 PATIENT TEMPERATURE (BEAKER) (test hwti=1276) 37.0 C [id number] 02:33:00 Test Item Value Reference Range Comments PHOSPHORUS (BEAKER) (test iods=508) 3.7 mg/dL 2.3-4.7 [id number] 02:33:00 Test Item Value Reference Range Comments LIPASE (BEAKER) (test uvnz=646) 40 U/L 8-78 CREATINE KINASE (CK), TOTAL AND [id number] 02:30:00 Test Item Value Reference Range Comments CREATINE KINASE TOTAL (BEAKER) (test lpty=690) 30 U/L 29-200 CREATINE KINASE-MB (BEAKER) (test zgdm=208) 0.4 ng/mL 0.0-6.6 CREATINE KINASE-MB INDEX (BEAKER) (test pitq=432) 1.3 % CK-MB Reference Range:<6.7 Normal6.7-10.0 Borderline>10.0 AbnormalTROPONIN [id number] 02:30:00 Test Item Value Reference Range Comments TROPONIN I (BEAKER) (test ddgu=062) < ng/mL 0.00-0.03 Troponin I (TnI) levels [...] failure, acidosis, acute neurological disease, and persistent tachyarrhythmia.[id number] 02:19:00 Test Item Value Reference Range Comments ETHANOL (BEAKER) (test uwrt=458) < mg/dL <=10 [id number] 02:17:00 Test Item Value Reference Range Comments PARTIAL THROMBOPLASTIN TIME (BEAKER) (test 32.8 seconds 22.5-36.0 soan=810) LACTIC ACID, VENOUS, WHOLE [id number] 02:17:00 Test Item Value Reference Range Comments LACTATE BLOOD VENOUS (2) (BEAKER) (test 1.2 mmol/L 0.5-2.2 fmod=0256) Effective 12/07/2015: Units/Reference Range ChangeNew: 0.5-2.2 mmol/L Previous: 5 -20 mg/dLPROTHROMBIN [id number] 02:16:00 Test Item Value Reference Range Comments PROTIME (BEAKER) (test eklp=907) 17.0 seconds 11.7-14.7 INR (BEAKER) (test dojv=251) 1.4 <=5.9 RECOMMENDED COUMADIN/WARFARIN INR THERAPY RANGESSTANDARD DOSE: 2.0 - 3.0 Includes: PROPHYLAXIS forvenous thrombosis, systemic embolization; TREATMENT for venous thrombosis and/or pulmonary embolus.HIGH RISK: Target INR is 2.5-3.5 for patients with mechanical heart valves.[id number] 02:16:00 Test Item Value Reference Range Comments AMMONIA (BEAKER) (test hvxy=592) 75 mol/L 18-72 [id number] 02:16:00 Test Item Value Reference Range Comments FIBRINOGEN LEVEL (BEAKER) (test eemf=058) 372 mg/dl 225-434 CBC W/PLT COUNT & AUTO [id number] 02:10:00 Test Item Value Reference Range Comments WHITE BLOOD CELL COUNT (BEAKER) (test xaif=149) 4.0 K/ L 3.5-10.5 RED BLOOD CELL COUNT (BEAKER) (test jplc=318) 2.78 M/ L 3.93-5.22 HEMOGLOBIN (BEAKER) (test fsbb=789) 8.5 GM/DL 11.2-15.7 HEMATOCRIT (BEAKER) (test jfwy=421) 25.8 % 34.1-44.9 MEAN CORPUSCULAR VOLUME (BEAKER) (test kbmm=109) 92.8 fL 79.4-94.8 MEAN CORPUSCULAR HEMOGLOBIN (BEAKER) (test 30.6 pg 25.6-32.2 jhqg=931) MEAN CORPUSCULAR HEMOGLOBIN CONC (BEAKER) (test 32.9 GM/DL 32.2-35.5 phue=374) RED CELL DISTRIBUTION WIDTH (BEAKER) (test 18.7 % 11.7-14.4 indb=836) PLATELET COUNT (BEAKER) (test jhcy=652) 110 K/CU MM 150-450 MEAN PLATELET VOLUME (BEAKER) (test izvj=120) 11.2 fL 9.4-12.3 NUCLEATED RED BLOOD CELLS (BEAKER) (test 0 /100 WBC 0-0 apxi=353) NEUTROPHILS RELATIVE PERCENT (BEAKER) (test 92 % mhxu=852) LYMPHOCYTES RELATIVE PERCENT (BEAKER) (test 4 % jejc=941) MONOCYTES RELATIVE PERCENT (BEAKER) (test 3 % zyup=250) EOSINOPHILS RELATIVE PERCENT (BEAKER) (test 1 % bpjd=154) BASOPHILS RELATIVE PERCENT (BEAKER) (test 0 % ggns=983) NEUTROPHILS ABSOLUTE COUNT (BEAKER) (test 3.69 K/ L 1.56-6.13 zfjn=134) LYMPHOCYTES ABSOLUTE COUNT (BEAKER) (test 0.14 K/ L 1.18-3.74 xbrv=051) MONOCYTES ABSOLUTE COUNT (BEAKER) (test 0.11 K/ L 0.24-0.36 dmca=918) EOSINOPHILS ABSOLUTE COUNT (BEAKER) (test 0.03 K/ L 0.04-0.36 wfzc=700) BASOPHILS ABSOLUTE COUNT (BEAKER) (test 0.01 K/ L 0.01-0.08 qqhg=629) IMMATURE GRANULOCYTES-RELATIVE PERCENT (BEAKER) 1 % 0-1 (test gbqu=5737) ANTI-NUCLEAR ANTIBODY (LÓPEZ)2017-11-29 09:50:00 Test Item Value Reference Range Comments ANTI-NUCLEAR ANTIBODY (LÓPEZ) (BEAKER) (test Positive Negative lsby=093) LÓPEZ TITER AND [id number] 09:50:00 Test Item Value Reference Range Comments LÓPEZ TITER (BEAKER) (test dnjc=6970) :40 LÓPEZ PATTERN (BEAKER) (test xoui=6443) Speckled [id number] 15:34:00 Test Item Value Reference Range Comments FERRITIN (BEAKER) (test wuih=916) 237 ng/mL 5-275 HEPATITIS B SURFACE [id number] 14:54:00 Test Item Value Reference Range Comments HEPATITIS B SURFACE ANTIBODY (BEAKER) (test < mIU/mL <8.0 vgmz=437) HEPATITIS B SURFACE [id number] 14:49:00 Test Item Value Reference Range Comments HEPATITIS B SURFACE ANTIGEN (2) (BEAKER) (test Nonreactive Nonreactive ioqc=7915) HEPATITIS C [id number] 14:49:00 Test Item Value Reference Range Comments HEPATITIS C ANTIBODY (BEAKER) (test mzag=379) Nonreactive Nonreactive ALPHA FETOPROTEIN (AFP), TUMOR [id number] 14:48:00 Test Item Value Reference Range Comments ALPHA-FETOPROTEIN (BEAKER) (test hbwz=7512) 4.9 ng/mL <10.0 HEPATITIS B CORE ANTIBODY, [id number] 14:48:00 Test Item Value Reference Range Comments HEPATITIS B CORE TOTAL ANTIBODY (BEAKER) (test Nonreactive Nonreactive xwgn=348) HEPATITIS A ANTIBODY, [id number] 14:48:00 Test Item Value Reference Range Comments HEPATITIS A IGG ANTIBODY (BEAKER) (test Nonreactive Nonreactive cozd=6321) CBC W/PLT COUNT & AUTO [id number] 14:30:00 Test Item Value Reference Range Comments WHITE BLOOD CELL COUNT (BEAKER) (test yfqj=727) 5.2 K/ L 3.5-10.5 RED BLOOD CELL COUNT (BEAKER) (test unve=260) 2.96 M/ L 3.93-5.22 HEMOGLOBIN (BEAKER) (test xvxl=295) 9.7 GM/DL 11.2-15.7 HEMATOCRIT (BEAKER) (test onbj=068) 31.0 % 34.1-44.9 MEAN CORPUSCULAR VOLUME (BEAKER) (test ryhn=595) 104.7 fL 79.4-94.8 MEAN CORPUSCULAR HEMOGLOBIN (BEAKER) (test 32.8 pg 25.6-32.2 acsx=707) MEAN CORPUSCULAR HEMOGLOBIN CONC (BEAKER) (test 31.3 GM/DL 32.2-35.5 mlso=137) RED CELL DISTRIBUTION WIDTH (BEAKER) (test 17.8 % 11.7-14.4 yuqp=752) PLATELET COUNT (BEAKER) (test fkgw=613) 92 K/CU MM 150-450 MEAN PLATELET VOLUME (BEAKER) (test vbap=130) 10.3 fL 9.4-12.3 NUCLEATED RED BLOOD CELLS (BEAKER) (test 0 /100 WBC 0-0 kasl=910) NEUTROPHILS RELATIVE PERCENT (BEAKER) (test 81 % jqpy=744) LYMPHOCYTES RELATIVE PERCENT (BEAKER) (test 6 % fukf=365) MONOCYTES RELATIVE PERCENT (BEAKER) (test 9 % lsae=819) EOSINOPHILS RELATIVE PERCENT (BEAKER) (test 3 % vgvg=782) BASOPHILS RELATIVE PERCENT (BEAKER) (test 1 % xsoj=018) NEUTROPHILS ABSOLUTE COUNT (BEAKER) (test 4.23 K/ L 1.56-6.13 bamu=505) LYMPHOCYTES ABSOLUTE COUNT (BEAKER) (test 0.29 K/ L 1.18-3.74 flch=531) MONOCYTES ABSOLUTE COUNT (BEAKER) (test npes=203) 0.49 K/ L 0.24-0.36 EOSINOPHILS ABSOLUTE COUNT (BEAKER) (test 0.14 K/ L 0.04-0.36 vnka=979) BASOPHILS ABSOLUTE COUNT (BEAKER) (test evsp=725) 0.06 K/ L 0.01-0.08 IMMATURE GRANULOCYTES-RELATIVE PERCENT (BEAKER) 0 % 0-1 (test arpp=0318) COMPREHENSIVE METABOLIC [id number] 14:28:00 Test Item Value Reference Range Comments TOTAL PROTEIN (BEAKER) 7.6 gm/dL 6.0-8.3 (test iqpp=573) ALBUMIN (BEAKER) (test 3.6 g/dL 3.5-5.0 fltf=8278) ALKALINE PHOSPHATASE 144 U/L 40-150 (BEAKER) (test ebpn=814) BILIRUBIN TOTAL (BEAKER) 1.1 mg/dL 0.2-1.2 (test muau=482) SODIUM (BEAKER) (test 135 meq/L 136-145 mufn=772) POTASSIUM (BEAKER) (test 3.6 meq/L 3.5-5.1 vonu=330) CHLORIDE (BEAKER) (test 103 meq/L 98-107 jqse=365) CO2 (BEAKER) (test 22 meq/L 22-29 yhpv=086) BLOOD UREA NITROGEN 16 mg/dL 7-21 (BEAKER) (test ohbp=020) CREATININE (BEAKER) (test 1.82 mg/dL 0.57-1.25 auzc=438) GLUCOSE RANDOM (BEAKER) 102 mg/dL 70-105 (test tsbf=591) CALCIUM (BEAKER) (test 9.1 mg/dL 8.4-10.2 arfb=151) AST (SGOT) (BEAKER) (test 39 U/L 5-34 negj=556) ALT (SGPT) (BEAKER) (test 14 U/L 6-55 rgss=471) EGFR (BEAKER) (test 30 mL/min/1.73 sq m ESTIMATED GFR IS NOT uroy=1537) ACCURATE CREATININE CLEARANCE IN PREDICTING GLOMERULAR FILTRATION RATE. ESTIMATED GFR IS NOT APPLICABLE FOR DIALYSIS PATIENTS. BILIRUBIN, [id number] 14:28:00 Test Item Value Reference Range Comments BILIRUBIN DIRECT (BEAKER) (test vcrt=942) 0.6 mg/dL 0.1-0.5 IRON, TIBC, % SAT. (WITHOUT FERRITIN)2017-11-27 14:26:00 Test Item Value Reference Range Comments IRON (BEAKER) (test iqhz=430) 37 ug/dL 40-160 TOTAL IRON BINDING CAPACITY (BEAKER) (test 219 ug/dL 250-450 nywd=150) IRON % SATURATION (2) (BEAKER) (test qhtm=8607) 17 % 20-55 [id number] 14:25:00 Test Item Value Reference Range Comments ALPHA-1 ANTITRYPSIN (BEAKER) (test rpkk=128) 151.80 mg/dL 90.00-200.00 PROTHROMBIN [id number] 14:03:00 Test Item Value Reference Range Comments PROTIME (BEAKER) (test cpij=911) 17.2 seconds 11.7-14.7 INR (BEAKER) (test pdrm=081) 1.4 <=5.9 RECOMMENDED COUMADIN/WARFARIN INR THERAPY RANGESSTANDARD DOSE: 2.0 - 3.0 Includes: PROPHYLAXIS forvenous thrombosis, systemic embolization; TREATMENT for venous thrombosis and/or pulmonary embolus.HIGH RISK: Target INR is 2.5-3.5 for patients with mechanical heart valves.
--- NOTE | 2018-12-06 04:37 | EDPHYS ---
Physician Documentation [facility] Name: Amauri Miller Age: 48 yrs Sex: Female : 1970 Arrival Date: 12/06/2018 Time: 04:24 Bed 14 Private MD: JAGDISH Physician Josh Guevara HPI: 12/06 04:30 This 48 yrs old Female presents to ER via Unassigned with complaints of bro ascites, bleeding of skin. 04:30 The patient presents with abdominal pain in the upper abdomen, in the lower abdomen, bro abdominal distention in the upper abdomen, in the lower abdomen. Onset: The symptoms/episode began/occurred 1 day(s) ago. alcohol cirrhosis. Onset: The symptoms/episode began/occurred 1 day(s) ago. The symptoms do not radiate. Associated signs and symptoms: Pertinent positives: bleeding at umbilicus. Severity of pain: At its worst the pain was mild in the emergency department the pain is unchanged. PROGRAM THERAPIST: 07:05 LMP N/A - Irregular menses rb1 Historical: - Allergies: 04:00 No Known Allergies; jb4 - Home Meds: 04:00 ciprofloxacin chl 500 mg once dialy for 30 days [Active]; ferrous sulfate 134 mg (27 mg jb4 iron) Oral tab [Active]; folic acid 1 mg Oral tab 1 tab once daily [Active]; furosemide 40 mg Oral tab 1 tab once daily [Active]; lactulose 20 gram/30 mL Oral soln 30 mL 3 times per day [Active]; nadolol 20 mg Oral tab 1 tab once daily [Active]; rifaximin 550 mg tab Oral 1 tab 2 times per day [Active]; potassium chloride 20 mEq Oral TbTQ 1 tab once daily [Active]; multivitamin with minerals Oral tab [Active]; omeprazole 20 mg Oral cpDR 2 caps 2 times per day [Active]; sodium bicarbonate 650 mg Oral tab twice a day [Active]; tramadol 50 mg Oral tab 1 tab every 6 hours [Active]; vitamin b1 [Active]; Vitamin B-6 Oral [Active]; Zofran (as hydrochloride) 4 mg Oral tab 2 tabs for one tab as needed [Active]; - PMHx: 04:00 Anemia; Cirrhosis; esophageal varices; possible htn; Hernia; second one, not repaired; jb4 - PSHx: 04:00 Hernia repair; jb4 - Immunization history:: Adult Immunizations up to date. - Social history:: Smoking status: Patient uses tobacco products, Patient uses alcohol. - Family history:: not pertinent. - Ebola Screening: : No symptoms or risks identified at this time. ROS: 04:30 Constitutional: Negative for fever, chills, and weight loss, Eyes: Negative for injury, bro pain, redness, and discharge, ENT: Negative for injury, pain, and discharge, Neck: Negative for injury, pain, and swelling, Cardiovascular: Negative for chest pain, palpitations, and edema, Respiratory: Negative for shortness of breath, cough, wheezing, and pleuritic chest pain, Back: Negative for injury and pain, : Negative for injury, bleeding, discharge, and swelling, MS/Extremity: Negative for injury and deformity, Neuro: Negative for headache, weakness, numbness, tingling, and seizure, Psych: Negative for depression, anxiety, suicide ideation, homicidal ideation, and hallucinations, Allergy/Immunology: Negative for hives, rash, and allergies, Endocrine: Negative for neck swelling, polydipsia, polyuria, polyphagia, and marked weight changes, Hematologic/Lymphatic: Negative for swollen nodes, abnormal bleeding, and unusual bruising. 04:30 Abdomen/GI: Positive for abdominal pain, abdominal distension. 04:30 Skin: Positive for ulceration, varicose vein. Exam: 04:30 Constitutional: This is a well developed, well nourished patient who is awake, alert, bro and in no acute distress. Head/Face: Normocephalic, atraumatic. Eyes: Pupils equal round and reactive to light, extra-ocular motions intact. Lids and lashes normal. Conjunctiva and sclera are non-icteric and not injected. Cornea within normal limits. Periorbital areas with no swelling, redness, or edema. ENT: Nares patent. No nasal discharge, no septal abnormalities noted. Tympanic membranes are normal and external auditory canals are clear. Oropharynx with no redness, swelling, or masses, exudates, or evidence of obstruction, uvula midline. Mucous membranes moist. Neck: Trachea midline, no thyromegaly or masses palpated, and no cervical lymphadenopathy. Supple, full range of motion without nuchal rigidity, or vertebral point tenderness. No Meningismus. Chest/axilla: Normal chest wall appearance and motion. Nontender with no deformity. No lesions are appreciated. Cardiovascular: Regular rate and rhythm with a normal S1 and S2. No gallops, murmurs, or rubs. Normal PMI, no JVD. No pulse deficits. Respiratory: Lungs have equal breath sounds bilaterally, clear to auscultation and percussion. No rales, rhonchi or wheezes noted. No increased work of breathing, no retractions or nasal flaring. Back: No spinal tenderness. No costovertebral tenderness. Full range of motion. MS/ Extremity: Pulses equal, no cyanosis. Neurovascular intact. Full, normal range of motion. Neuro: Awake and alert, GCS 15, oriented to person, place, time, and situation. Cranial nerves II-XII grossly intact. Motor strength 5/5 in all extremities. Sensory grossly intact. Cerebellar exam normal. Normal gait. Psych: Awake, alert, with orientation to person, place and time. Behavior, mood, and affect are within normal limits. 04:30 Abdomen/GI: Inspection: distension, Bowel sounds: normal, Palpation: abdomen is soft and non-tender, Liver: is firm, Hernia: not appreciated. 06:53 Abdomen/GI: Rectal exam: is unremarkable, rectal tone normal, Stool: guaiac negative, bro hemorrhoid(s), are not appreciated, mass, is not appreciated, swelling, is not appreciated, tenderness, is not appreciated. Vital Signs: 04:00 BP 99 / 79; Pulse 109; Resp 22; Temp 98.1(O); Pulse Ox 100% on R/A; Weight 59.87 kg jb4 (R); Height 5 ft. 6 in. (167.64 cm); Pain 0/10; 05:00 BP 111 / 81; Pulse 107; Resp 20; Pulse Ox 100% on R/A; jb4 06:15 BP 107 / 80; Pulse 112; Resp 15; Pulse Ox 98% on R/A; jb4 07:05 BP 109 / 78; Pulse 108; Resp 16; Temp 98.1(O); Pulse Ox 99% on R/A; Pain 3/10; rb1 08:05 BP 113 / 77; Pulse 104; Resp 16; Temp 98.3(O); Pulse Ox 100% on R/A; Pain 3/10; rb1 09:05 BP 117 / 81; Pulse 104; Resp 14; Temp 98.3(O); Pulse Ox 100% on R/A; Pain 2/10; rb1 09:45 BP 107 / 75; Pulse 107; Resp 16; Temp 98.2(O); Pulse Ox 100% on R/A; Pain 2/10; rb1 04:00 Body Mass Index 21.31 (59.87 kg, 167.64 cm) jb4 06:15 See [facility] eliceo medrano for further vital signs jb4 Procedures: 04:54 Peripheral line: by aseptic technique a peripheral line was placed in the right bro external jugular vein, . Laceration: 04:54 Wound Repair of .2cm ( 0.1in ) subcutaneous laceration to umbilical area. Distal bro neuro/vascular/tendon intact. Anesthesia: none with 1 mls of none. Wound prep: Moderate cleansing by me. Skin closed with 1 5-0 Prolene using interrupted sutures. Dressed with pressure dressing, non-adherent dressing. MDM: 04:34 Data reviewed: vital signs, nurses notes, lab test result(s), EKG, radiologic studies, [facility] plain films. 04:36 Patient medically screened. [facility] 12/06 04:29 Order name: Basic Metabolic Panel; Complete Time: 05:45 [facility] 12/06 04:29 Order name: CBC with Diff; Complete Time: 05:18 [facility] 12/06 04:29 Order name: LFT's; Complete Time: 05:45 [facility] 12/06 04:29 Order name: Magnesium; Complete Time: 05:45 [facility] 12/06 04:29 Order name: NT PRO-BNP; Complete Time: 05:45 [facility] 12/06 04:29 Order name: PT-INR; Complete Time: 05:18 [facility] 12/06 04:29 Order name: Troponin (emerg Dept Use Only); Complete Time: 05:45 [facility] 12/06 04:29 Order name: Lipase; Complete Time: 05:45 [facility] 12/06 04:29 Order name: AMMONIA; Complete Time: 05:45 [facility] 12/06 04:29 Order name: Type And Screen [facility] 12/06 04:29 Order name: Blood Culture Adult (2) bro 12/06 04:29 Order name: Urine Culture [facility] 12/06 05:58 Order name: Packed RBC Leukored -1 EDMS 12/06 06:10 Order name: Urine Dipstick--Ancillary (enter results) [facility] 12/06 04:29 Order name: XRAY Chest (1 view) [facility] 12/06 04:29 Order name: EKG; Complete Time: 04:30 [facility] 12/06 04:29 Order name: Cardiac monitoring; Complete Time: 05:07 [facility] 12/06 04:29 Order name: EKG - Nurse/Tech; Complete Time: 05:07 [facility] 12/06 04:29 Order name: IV Saline Lock; Complete Time: 05:07 [facility] 12/06 04:29 Order name: Labs collected and sent; Complete Time: 05:07 [facility] 12/06 04:29 Order name: O2 Per Protocol; Complete Time: 05:07 [facility] 12/06 04:29 Order name: O2 Sat Monitoring; Complete Time: 05:07 [facility] 12/06 06:10 Order name: Urine --Ancillary (enter results) [facility] 12/06 04:29 Order name: Prolene, Sutures; Complete Time: 05:04 [facility] 12/06 04:29 Order name: Dressing - Wound; Complete Time: 05:04 [facility] 12/06 04:29 Order name: Gloves, Sterile; Complete Time: 05:04 [facility] 12/06 04:29 Order name: Setup Suture Tray; Complete Time: 05:04 [facility] 12/06 05:22 Order name: Transfuse; Complete Time: 07:13 [facility] Administered Medications: 05:04 Drug: Vitamin K1 10 mg Route: Sub-Q; Site: left upper arm; [facility] 06:01 Follow up: Response: No adverse reaction [facility] 05:29 Drug: ProTONIX 40 mg {Note: administered to right EJ.} Route: IVP; Site: Other; [facility] 06:01 Follow up: Response: No adverse reaction [facility] 05:31 Drug: Rocephin - (cefTRIAXone) 1 grams {Note: Administered to Right EJ, via IV push per [facility] pharmacy protocol.} Route: IVPB; Infused Over: 30 mins; Site: Other; 05:33 Follow up: Response: No adverse reaction; IV Status: Completed infusion; IV Intake: [id number] 05:38 Drug: NS 0.9% 500 ml {Note: infusing in right EJ.} Route: IV; Rate: bolus; Site: Other; [facility] 06:08 Follow up: Response: No adverse reaction; IV Status: Completed infusion; IV Intake: jb4 500ml 06:08 Drug: NS 0.9% 1000 ml {Note: Infusing to right EJ.} Route: IV; Rate: 125 ml/hr; Site: [facility] Other; 06:20 Drug: Tylenol 500 mg Route: PO; jb4 07:00 Follow up: Response: No adverse reaction [facility] 06:22 Drug: Benadryl 12.5 mg {Note: administered to right EJ..} Route: IVP; Site: Other; [facility] 07:00 Follow up: Response: No adverse reaction [facility] Disposition: 12/06/18 04:[address] [facility]. Diagnosis are Alcoholic cirrhosis of liver with ascites, Ascites, Pressure ulcer - varicose bleeding, Encephalopathy, unspecified - hepatic encephlopathy. - Reason for transfer: Higher level of care. - Accepting physician is [facility] liver team. - Condition is Fair. - Problem is new. - Symptoms have improved. Signatures: Dispatcher [employer] EDJosh Craig MD MD cha Barber, Rebecca, KIMBERLY HARRIS [facility] Bharat Flores RN RN jb4 Corrections: (The following items were deleted from the chart) 05:47 04:36 12/06/2018 04:[address] [facility]. Diagnosis is bro Alcoholic cirrhosis of liver with ascites; Ascites; Pressure ulcer - varicose bleeding. Reason for transfer: Higher level of care. Accepting physician is [facility] liver team. Condition is Fair. Problem is new. Symptoms have improved. [facility] 10:03 05:47 12/06/2018 04:[address] [facility]. Diagnosis is rb1 Alcoholic cirrhosis of liver with ascites; Ascites; Pressure ulcer - varicose bleeding; Encephalopathy, unspecified - hepatic encephlopathy. Reason for transfer: Higher level of care. Accepting physician is [facility] liver team. Condition is Fair. Problem is new. Symptoms have improved. bro
[2018-12-06] MEDS ORDERED: VITAMIN K (ADULT) 10 MG/ML ONE (04:59)
[2018-12-06 05:03] LABS: Absolute Lymphocytes (CBC) 0.3 K/uL (0.7-4.9); Absolute Monocytes 0.7 K/uL (0.1-1.3); Absolute Neutrophil 3.3 K/uL (1.8-8.0); Basophils % 1.7 % (0-1.3); Eosinophils % 2.9 % (0-4.4); Lymphocytes % 6.7 % (15.3-44.8); MPV 9.1 fL (7.6-11.3); Monocytes % 14.7 % (3.3-12.3); RBC Red Blood Cell Count 2.18 M/uL (3.86-4.86)
[2018-12-06 05:04] LABS: Protime INR 1.15
[2018-12-06 05:07] LABS: Hematocrit 18.9 % (36.0-45.0)
[2018-12-06 05:17] LABS: ALT/SGPT 23 U/L (12-78); AST/SGOT 45 U/L (15-37); Alkaline Phosphatase 194 U/L (45-117); BUN Blood Urea Nitrogen 11 mg/dL (7-18); Bicarbonate 16 mmol/L (21-32); Bilirubin Direct 0.2 mg/dL (0-0.2); Bilirubin Total 0.4 mg/dL (0.2-1.0); Glucose Level 98 mg/dL (74-106); Lipase 370 U/L (73-393); Magnesium 2.3 mg/dL (1.8-2.4); NT PRO-BNP 112 pg/mL (<125); Potassium 4.1 mmol/L (3.5-5.1); Protein, Total 6.9 g/dL (6.4-8.2); Sodium Level 141 mmol/L (136-145); Troponin (Emerg Dept Use Only) < 0.02 ng/mL (0.0-0.045)
[2018-12-06] MEDS ORDERED: CEFTRIAXONE/SWI 1gm 1 GM/10 ML SYR ONE (05:35)
[2018-12-06] MEDS ORDERED: NA CHLORIDE 0.9% 1,000 ML ONE (05:35)
[2018-12-06] MEDS ORDERED: PANTOPRAZOLE 40 MG INJ ONE (05:35)
[2018-12-06] MEDS ORDERED: ACETAMINOPHEN 500 MG TAB ONE (06:29)
[2018-12-06] MEDS ORDERED: DIPHENHYDRAMINE 50 MG/ML VIAL ONE (06:30)
[2018-12-06] MEDS ORDERED: NA CHLORIDE 0.9% 500 ML ONE (06:30)
--- NOTE | 2018-12-06 06:46 | EKG ---
Test Date: 2018-12-06 Test Time: 04:46:01 Senior [employer] Design Engineer: ERNESTINA MEASUREMENT RESULTS: Intervals: Rate: 104 MT: 146 QRSD: 74 QT: 358 QTc: 470 [place]: P: 43 MT: 146 QRS: 47 T: 60 INTERPRETIVE STATEMENTS: Sinus tachycardia Otherwise normal ECG Compared to ECG 10/07/2018 00:48:34 No significant changes Electronically Signed On 12-06-18 06:45:45 CDT by Marek Mccarthy
[2018-12-06 07:17] LABS: Urine Blood NEGATIVE (NEG); Urine Glucose NEGATIVE (NEG); Urine Protein 1+ (NEG)
--- NOTE | 2018-12-06 10:03 | RAD REPORT ---
EXAM DESCRIPTION: [place] Single View12/06/2018 4:50 am CLINICAL HISTORY: Abdominal pain COMPARISON: October 2018 FINDINGS: The lungs appear clear of acute infiltrate. The heart is normal size IMPRESSION: No acute abnormalities displayed
--- NOTE | 2018-12-06 10:04 | ER ---
Nurse's Notes [facility] Name: Amauri Miller Age: 48 yrs Sex: Female : 1970 Arrival Date: 12/06/2018 Time: 04:24 Bed 14 Private MD: Diagnosis: Alcoholic cirrhosis of liver with ascites;Ascites;Pressure ulcer-varicose bleeding;Encephalopathy, unspecified-hepatic encephlopathy Presentation: 12/06 04:00 Presenting complaint: EMS states: Pt reported abdominal bleeding. on scene patient was jb4 holding a towel to her stomach. Pt bleeding continuously profusely. 04:00 Transition of care: patient was not received from another setting of care. Onset of jb4 symptoms was December 06, 2018. Risk Assessment: Do you want to hurt yourself or someone else? Patient reports no desire to harm self or others. Initial Sepsis Screen: Does the patient meet any 2 criteria? RR > 20 per min. HR > 90 bpm. Yes Does the patient have a suspected source of infection? Yes: Other: abdominal distention If YES to both, name of provider notified: Josh Guevara MD Care prior to arrival: None. 04:00 Method Of Arrival: EMS: [facility] 04:00 Acuity: CASI 2 jb4 Triage Assessment: 04:00 General: Appears distressed, uncomfortable, Behavior is cooperative, appropriate for jb4 age, anxious. Pain: Denies pain. EENT: No signs and/or symptoms were reported regarding the EENT system. Neuro: Level of Consciousness is awake, alert, obeys commands, Oriented to person, place, time, situation. Cardiovascular: Heart tones S1 S2 present Patient's skin is warm and dry. Respiratory: Airway is patent Respiratory effort is even, unlabored, Respiratory pattern is regular, symmetrical, tachypnea Breath sounds are clear bilaterally. GI: Abdomen is round distended, noted to have ascites, Profuse bleeding noted to middle of the abdomen. Pressure applied, Provider notified. : No signs and/or symptoms were reported regarding the genitourinary system. Derm: Skin is intact, Skin is pink, warm \T\ dry. Musculoskeletal: Circulation, motion, and sensation intact. SHADE BANDER: 07:05 LMP N/A - Irregular menses rb1 Historical: - Allergies: 04:00 No Known Allergies; jb4 - Home Meds: 04:00 ciprofloxacin chl 500 mg once dialy for 30 days [Active]; ferrous sulfate 134 mg (27 mg jb4 iron) Oral tab [Active]; folic acid 1 mg Oral tab 1 tab once daily [Active]; furosemide 40 mg Oral tab 1 tab once daily [Active]; lactulose 20 gram/30 mL Oral soln 30 mL 3 times per day [Active]; nadolol 20 mg Oral tab 1 tab once daily [Active]; rifaximin 550 mg tab Oral 1 tab 2 times per day [Active]; potassium chloride 20 mEq Oral TbTQ 1 tab once daily [Active]; multivitamin with minerals Oral tab [Active]; omeprazole 20 mg Oral cpDR 2 caps 2 times per day [Active]; sodium bicarbonate 650 mg Oral tab twice a day [Active]; tramadol 50 mg Oral tab 1 tab every 6 hours [Active]; vitamin b1 [Active]; Vitamin B-6 Oral [Active]; Zofran (as hydrochloride) 4 mg Oral tab 2 tabs for one tab as needed [Active]; - PMHx: 04:00 Anemia; Cirrhosis; esophageal varices; possible htn; Hernia; second one, not repaired; jb4 - PSHx: 04:00 Hernia repair; jb4 - Immunization history:: Adult Immunizations up to date. - Social history:: Smoking status: Patient uses tobacco products, Patient uses alcohol. - Family history:: not pertinent. - Ebola Screening: : No symptoms or risks identified at this time. Screenin:00 Abuse screen: Denies threats or abuse. Nutritional screening: No deficits noted. jb4 Tuberculosis screening: No symptoms or risk factors identified. Fall Risk Secondary diagnosis (15 points) Ascites, abdominal distention. Abdominal bleed.. IV access (20 points). Mental Status- Oriented to own ability (0 pts). Total Mora Fall Scale indicates Low Risk Score (25-44 pts). Fall prevention measures have been instituted. Side Rails Up X 2 Placed close to Nursing Station Frequent Obs/Assesments occuring As available Patient and Family Educated on Fall Prevention Program and strategies. Assessment: 04:00 General: see triage note.. jb4 04:20 Reassessment: No changes from previously documented assessment. Patient and/or family jb4 updated on plan of care and expected duration. Pain level reassessed. Patient is alert, oriented x 3, equal unlabored respirations, skin warm/dry/pink. Provider at the bedside performing laceration repair. ABD bandage applied to site. 05:00 Reassessment: No changes from previously documented assessment. Patient and/or family jb4 updated on plan of care and expected duration. Pain level reassessed. Patient is alert, oriented x 3, equal unlabored respirations, skin warm/dry/pink. 06:00 Reassessment: No changes from previously documented assessment. Patient and/or family jb4 updated on plan of care and expected duration. Pain level reassessed. Patient is alert, oriented x 3, equal unlabored respirations, skin warm/dry/pink. 07:05 Reassessment: Patient appears in no apparent distress at this time. Patient and/or jb4 family updated on plan of care and expected duration. Pain level reassessed. Patient is alert, oriented x 3, equal unlabored respirations, skin warm/dry/pink. Blood cross checked at the bed side with KIMBERLY Quinones. 07:05 Pain: Denies pain. Respiratory: Airway is patent Respiratory effort is even, unlabored, jb4 Respiratory pattern is regular, symmetrical, Breath sounds are clear bilaterally. Denies cough, shortness of breath. 07:05 General: Appears in no apparent distress. comfortable, Behavior is calm, cooperative. rb1 Neuro: Level of Consciousness is awake, alert, obeys commands, Oriented to person, place, time, situation. Cardiovascular: Capillary refill < 3 seconds is brisk in bilateral fingers Rhythm is sinus tachycardia. Respiratory: Airway is patent Respiratory effort is even, unlabored, Respiratory pattern is regular, symmetrical, Breath sounds are clear bilaterally. Denies shortness of breath. GI: No signs and/or symptoms were reported involving the gastrointestinal system. : No signs and/or symptoms were reported regarding the genitourinary system. Derm: Skin is dry, Skin is normal, Skin temperature is warm. 07:05 Pain: Complains of pain in right front headache Pain currently is 3 out of 10 on a pain rb1 scale. Pain began Pt. describes it as a sinus headache. 07:38 Reassessment: Report called to KIMBERLY Anand at receiving facility. jb4 08:05 Reassessment: Patient appears in no apparent distress at this time. No changes from rb1 previously documented assessment. Neuro: Level of Consciousness is awake, alert, obeys commands, Oriented to person, place, time, situation. Respiratory: Airway is patent Respiratory effort is even, unlabored, Respiratory pattern is regular, symmetrical, Breath sounds are clear bilaterally. Denies shortness of breath. Derm: No bleeding noted on the abdomen at this time. 09:05 Reassessment: Patient appears in no apparent distress at this time. No changes from rb1 previously documented assessment. Blood infusion complete. No adverse reactions noted at this time. Pt. denies SOB. Lung sounds are clear bilaterally. 09:45 Reassessment: Patient appears in no apparent distress at this time. No changes from rb1 previously documented assessment. Gave report to [facility]. Information from the [facility] was given. All questions asked and answered. Vital Signs: 04:00 BP 99 / 79; Pulse 109; Resp 22; Temp 98.1(O); Pulse Ox 100% on R/A; Weight 59.87 kg jb4 (R); Height 5 ft. 6 in. (167.64 cm); Pain 0/10; 05:00 BP 111 / 81; Pulse 107; Resp 20; Pulse Ox 100% on R/A; jb4 06:15 BP 107 / 80; Pulse 112; Resp 15; Pulse Ox 98% on R/A; jb4 07:05 BP 109 / 78; Pulse 108; Resp 16; Temp 98.1(O); Pulse Ox 99% on R/A; Pain 3/10; rb1 08:05 BP 113 / 77; Pulse 104; Resp 16; Temp 98.3(O); Pulse Ox 100% on R/A; Pain 3/10; rb1 09:05 BP 117 / 81; Pulse 104; Resp 14; Temp 98.3(O); Pulse Ox 100% on R/A; Pain 2/10; rb1 09:45 BP 107 / 75; Pulse 107; Resp 16; Temp 98.2(O); Pulse Ox 100% on R/A; Pain 2/10; rb1 04:00 Body Mass Index 21.31 (59.87 kg, 167.64 cm) jb4 06:15 See [facility] eliceo medrano for further vital signs jb4 ED Course: 04:00 Arm band placed on right wrist. EKG completed in triage. Results shown to jb4 04:00 Patient has correct armband on for positive identification. Placed in gown. Bed in low jb4 position. Call light in reach. Side rails up X 1. hospital monitor on. Pulse ox on. NIBP on. 04:24 Patient arrived in ED. fc 04:26 Josh Guevara MD is Attending Physician. bro 04:31 Bharat Flores, RN is Primary Nurse. jb4 04:38 Triage completed. jb4 04:45 X-ray completed. Portable x-ray completed in exam room. Patient tolerated procedure az well. 04:50 XRAY Chest (1 view) In Process Unspecified. EDMS 05:08 EKG done, by ED staff, reviewed by Josh Guevara MD. Inserted saline lock: 18 gauge in ag4 right EJ, using aseptic technique. Blood collected. 09:58 No provider procedures requiring assistance completed. Patient transferred, IV remains rb1 in place. Administered Medications: 05:04 Drug: Vitamin K1 10 mg Route: Sub-Q; Site: left upper arm; [facility] 06:01 Follow up: Response: No adverse reaction [facility] 05:29 Drug: ProTONIX 40 mg {Note: administered to right EJ.} Route: IVP; Site: Other; [facility] 06:01 Follow up: Response: No adverse reaction 4 05:31 Drug: Rocephin - (cefTRIAXone) 1 grams {Note: Administered to Right EJ, via IV push per [facility] pharmacy protocol.} Route: IVPB; Infused Over: 30 mins; Site: Other; 05:33 Follow up: Response: No adverse reaction; IV Status: Completed infusion; IV Intake: [id number] 05:38 Drug: NS 0.9% 500 ml {Note: infusing in right EJ.} Route: IV; Rate: bolus; Site: Other; [facility] 06:08 Follow up: Response: No adverse reaction; IV Status: Completed infusion; IV Intake: jb4 500ml 06:08 Drug: NS 0.9% 1000 ml {Note: Infusing to right EJ.} Route: IV; Rate: 125 ml/hr; Site: [address]; 06:20 Drug: Tylenol 500 mg Route: PO; [facility] 07:00 Follow up: Response: No adverse reaction [facility] 06:22 Drug: Benadryl 12.5 mg {Note: administered to right EJ..} Route: IVP; Site: Other; [facility] 07:00 Follow up: Response: No adverse reaction jb4 Intake: 05:33 IV: 10ml; Total: 10ml. jb4 06:08 IV: 500ml; Total: 510ml. jb4 Outcome: 04:36 ER care complete, transfer ordered by . bro 09:58 Transferred by ground EMS to [facility], Transfer form completed. rb1 09:58 Condition: stable 09:58 Instructed on the need for transfer. 10:03 Patient left the ED. rb1 Signatures: Dispatcher [employer] EDMS Josh Guevara MD MD cha Chretien, Felicia, RN RN Stacie Galvan RN RN rb1 Bharat Flores RN RN jb4 Rosey Johnson Adan ag4 Corrections: (The following items were deleted from the chart) 05:14 04:00 BP 111 / 81; Pulse 107bpm; Resp 20bpm; Pulse Ox 100% RA; jb4 jb4
[2018-12-06 10:19] VITALS: O2SAT 100
[2018-12-06 10:21] VITALS: BP 107/75; TEMP 98.2
== END 2018-12-06 10:03 | disposition short-term general hospital (02) ==
LOC: ER 04:20
PROC: 0JQ80ZZ Repair Abdomen Subcutaneous Tissue and Fascia, Open Approach (ICD-10-PCS; principal; 2018-12-06)
PROC: 05HP33Z Insertion of Infusion Device into Right External Jugular Vein, Percutaneous Approach (ICD-10-PCS; 2018-12-06)
DX: K70.31 Alcoholic cirrhosis of liver with ascites (principal); K72.90 Hepatic failure, unspecified without coma; L89.899 Pressure ulcer of other site, unspecified stage; D64.9 Anemia, unspecified; Z72.0 Tobacco use
CPT/HCPCS: 36415; 71045; 80048; 80076; 81003; 81025; 82140; 83690; 83735; 83880; 84484; 85025; 85610; 86850; 86900; 86901; 87040; 87086; 87088; 93005; 96372; 96374; 96375; 99285; C9113; J0696; J3430; J7030; P9016

== ENCOUNTER 2019-01-29 16:23 | Emergency (ER) | payer MEDICAID ==
--- OUTSIDE RECORDS SUMMARY | 2019-01-29 16:32 | XMS REPORT | Clinical Summary ---
:1970 Author Organization [facility] Address [address] [place] [address] Care Team Providers Name Role Phone Alison [...] Sr., MD Sanders, Sunny Buchanan MD after 01/28/2018 Social History Tobacco Use Types Packs/Day Years [...] Taken Blood Pressure 109/68 08/08/2018 4:30 PM VIDEO NEWS EDITOR Pulse 105 08/08/2018 4:30 PM VIDEO NEWS EDITOR Temperature 36.6 C (97.9 F) 08/08/2018 3:40 PM VIDEO NEWS EDITOR Respiratory Rate 18 08/08/2018 4:30 PM VIDEO NEWS EDITOR Oxygen Saturation 100% 08/08/2018 3:40 PM VIDEO NEWS EDITOR Inhaled Oxygen Concentration - - Weight 59 kg (130 lb) 08/04/2018 4:30 AM VIDEO NEWS EDITOR Height 167.6 cm (5' 6") 08/04/2018 4:30 AM VIDEO NEWS EDITOR Body Mass Index 20.98 08/04/2018 4:30 AM VIDEO NEWS EDITOR Plan of Treatment Health Maintenance Due Date Last Done Comments INFLUENZA VACCINE 03/05/2019 Procedures Procedure Name Priority Date/Time Associated Comments Diagnosis ESTIMATED GFR Routine 08/08/2018 2:25 Results for this PM VIDEO NEWS EDITOR procedure are in the results section. BASIC METABOLIC PANEL Routine 08/08/2018 2:25 Results for this PM [employer]IDEO NEWS EDITOR procedure are in the results section. US ABDOMINAL Routine 08/08/2018 9:50 Results for this PARACENTESIS IMAGING AM [employer]IDEO NEWS EDITOR procedure are in the results section. ESTIMATED GFR Routine 08/07/2018 4:40 Results for this AM VIDEO NEWS EDITOR procedure are in the results section. BASIC METABOLIC PANEL Routine 08/07/2018 4:40 Results for this AM VIDEO NEWS EDITOR procedure are in the results section. VENOUS BLOOD GAS Routine 08/06/2018 6:42 Results for this PM [employer]IDEO NEWS EDITOR procedure are in the results section. US ABDOMINAL Routine 08/06/2018 2:30 Results for this [facility]AC[facility]ESIS IMAGING PM [employer] EDITOR procedure are in the results section. SMEAR REVIEW Routine 08/06/2018 6:45 Results for this AM VIDEO NEWS EDITOR procedure are in the results section. ESTIMATED GFR Routine 08/06/2018 6:45 Results for this AM [employer]IDEO NEWS EDITOR procedure are in the results section. LACTIC ACID LEVEL Routine 08/06/2018 6:45 Results for this AM VIDEO NEWS EDITOR procedure are in the results section. HC COMPLETE BLD COUNT Routine 08/06/2018 6:45 Results for this W/AUTO DIFF AM [employer]IDEO NEWS EDITOR procedure are in the results section. PROTHROMBIN TIME WITH Routine 08/06/2018 6:45 Results for this INR AM VIDEO NEWS EDITOR procedure are in the results section. BASIC METABOLIC PANEL Routine 08/06/2018 6:45 Results for this AM VIDEO NEWS EDITOR procedure are in the results section. PARTIAL THROMBOPLASTIN Routine 08/06/2018 6:45 Results for this TIME (PTT) AM VIDEO NEWS EDITOR procedure are in the results section. LACTIC ACID LEVEL, Timed 08/05/2018 6:00 Results for this SEPSIS - NOW AND REPEAT PM VIDEO NEWS EDITOR procedure are in 2X EVERY 3 HOURS the results section. LACTIC ACID LEVEL, Timed 08/05/2018 3:25 Results for this SEPSIS - NOW AND REPEAT PM VIDEO NEWS EDITOR procedure are in 2X EVERY 3 HOURS the results section. SMEAR REVIEW Routine 08/05/2018 4:35 Results for this AM VIDEO NEWS EDITOR procedure are in the results section. ESTIMATED GFR Routine 08/05/2018 4:35 Results for this AM VIDEO NEWS EDITOR procedure are in the results section. AMMONIA LEVEL Routine 08/05/2018 4:35 Results for this AM VIDEO NEWS EDITOR procedure are in the results section. BASIC METABOLIC PANEL Routine 08/05/2018 4:35 Results for this AM [employer]IDEO NEWS EDITOR procedure are in the results section. HC COMPLETE BLD COUNT Routine 08/05/2018 4:35 Results for this W/AUTO DIFF AM [employer]IDEO NEWS EDITOR procedure are in the results section. US ABDOMINAL STAT 08/04/2018 1:35 Results for this [facility]ACENTESIS IMAGING PM [employer] NEWS EDITOR procedure are in the results section. XR CHEST 1 VW PORTABLE STAT 08/04/2018 5:19 Results for this AM VIDEO NEWS EDITOR procedure are in the results section. SMEAR REVIEW STAT 08/04/2018 5:00 Results for this AM VIDEO NEWS EDITOR procedure are in the results section. AMMONIA LEVEL STAT 08/04/2018 5:00 Results for this AM VIDEO NEWS EDITOR procedure are in the results section. ESTIMATED GFR STAT 08/04/2018 5:00 Results for this AM VIDEO NEWS EDITOR procedure are in the results section. MAGNESIUM LEVEL STAT 08/04/2018 5:00 Results for this AM VIDEO NEWS EDITOR procedure are in the results section. PARTIAL THROMBOPLASTIN STAT 08/04/2018 5:00 Results for this TIME (PTT) AM VIDEO NEWS EDITOR procedure are in the results section. PROTHROMBIN TIME WITH STAT 08/04/2018 5:00 Results for this INR AM VIDEO NEWS EDITOR procedure are in the results section. HC COMPLETE BLD COUNT STAT 08/04/2018 5:00 Results for this W/AUTO DIFF AM [employer]IDEO NEWS EDITOR procedure are in the results section. COMPREHENSIVE METABOLIC STAT 08/04/2018 5:00 Results for this PANEL AM VIDEO NEWS EDITOR procedure are in the results section. after 01/28/2018 Results Estimated GFR (08/08/2018 2:25 PM VIDEO NEWS EDITOR)Only the most recent of5 resultswithin the time period is included. Estimated GFR 59 (A) mL/min/1.73 [place] Comment: m2 [facility] THE CatergoryUnitsInterpretation [facility] G1 >=90 Normal or high HOSPITAL G2 60-89Mildly decreased [id number] to moderately decreased [id number] to severely decreased G4 15-29Severely decreased G5 <15Kidney failure The eGFR was calculated using the Chronic Kidney Disease Epidemiology Collaboration (CKD-EPI) equation. Interpretation is based on recommendations of the National Kidney Foundation-Kidney Disease Outcomes Quality Initiative (NKF-KDOQI) published in 2014. Specimen Plasma specimen Performing Organization Address City/State/Zipcode [place] [address], [address] [place] [address] PATHOLOGY AND GENOMIC S MEDICINE [place] [address] [place] [address] [facility] Basic metabolic panel (08/08/2018 2:25 PM VIDEO NEWS EDITOR)Only the most recent of4 resultswithin the time period is included. Sodium 139 135 - 148 mEq/L [facility] Potassium 3.7 3.5 - 5.0 mEq/L [facility] Chloride 107 98 - 112 mEq/L [facility] CO2 17 (L) 24 - 31 mEq/L [facility] Anion gap 15 7 - 15 mEq/L [facility] BUN 20 6 - 20 mg/dL [facility] Creatinine 1.10 (H) 0.50 - 0.90 mg/dL [facility] Glucose 105 (H) 65 - 99 mg/dL [facility] Calcium 9.2 8.3 - 10.2 mg/dL [facility] Specimen Plasma specimen Performing Organization Address City/State/[place]code [place] [address], [address] [place] [address] PATHOLOGY AND GENOMIC S MEDICINE [facility] [place] [address] [address] [place] [address] [facility] US Abdominal Paracentesis Imaging (08/08/2018 9:50 AM VIDEO NEWS EDITOR)Only the most recent of3 resultswithin the time period is included. Specimen Narrative Performed At Procedure [facility] Ultrasound-guided paracentesis. Clinical Indication Ascites. Anesthesia [...] anesthetic. Using real-time ultrasound guidance, a 5 Israeli Yueh catheter was advanced successfully into the peritoneal cavity with return of cloudy yellow ascites. A total of 5000 mL of fluid was removed. The Yueh catheter was removed and hemostasis was achieved with manual compression. The patient tolerated the procedure well. Complications None. Impression: Successful ultrasound-guided paracentesis with removal of 5000 ml of cloudy yellow ascites. [id number] Procedure Note Hm Interface, Radiology Results Incoming - 08/08/2018 12:03 PM VIDEO NEWS EDITOR Procedure Ultrasound-guided paracentesis. Clinical Indication Ascites. Anesthesia [...] anesthetic. Using real-time ultrasound guidance, a 5 Israeli Yueh catheter was advanced successfully into the peritoneal cavity with return of cloudy yellow ascites. A total of 5000 mL of fluid was removed. The Yueh catheter was removed and hemostasis was achieved with manual compression. The patient tolerated the procedure well. Complications None. Impression: Successful ultrasound-guided paracentesis with removal of 5000 ml of cloudy yellow ascites. [facility]-[id number] Performing Organization Address City/[facility] Phone Number [facility] [address] [place] [address] Venous blood gas (08/06/2018 6:42 PM VIDEO NEWS EDITOR) pH, venous 7.41 7.32 - 7.42 [facility] pCO2, venous 24 (L) 45 - 51 mmHg [facility] pO2, venous 75 (H) 25 - 40 mmHg [facility] Base excess, venous -9 (L) -2 - 2 meq/L [facility] O2 saturation, 95 (H) 40 - 70 % [facility] venous [facility] Bicarbonate, venous 14.5 (L) 21.0 - 28.0 [facility] mmol/L [facility] Specimen Blood Performing Organization Address City/[facility] [place] Number [place] [address], [address] [place] [address] PATHOLOGY AND GENOMIC S MEDICINE [facility] THE [address] [place] [address] [facility] Smear review (08/06/2018 6:45 AM VIDEO NEWS EDITOR)Only the most recent of3 resultswithin the time period is included. Platelet slide review Decreased (A) [facility] Anisocytosis Moderate [facility] Tear drop cells Occasional [facility] Schistocytes Occasional [facility] Spherocytes Occasional [facility] Specimen Performing Organization Address City/State/Zipcode Phone Number [facility] DEPARTMENT OF [facility] [place] [address] PATHOLOGY AND [facility] THE [address] Partial thromboplastin time, activated (08/06/2018 6:45 AM VIDEO NEWS EDITOR)Only the most recent of2 resultswithin the time period is included. PTT 42.1 (H) 23.0 - 36.0 KEITH MCWILLIAMS Comment: [facility] PTT therapeutic range for unfractionated heparin is HOSPITAL 61.0-112.0 seconds which corresponds to Anti-Xa 0.3-0.7 U/ml. Specimen Blood Performing Organization Address City/[facility] Phone Number [facility] DEPARTMENT OF [facility] [address] THE [address] [address] Prothrombin time with INR (08/06/2018 6:45 AM VIDEO NEWS EDITOR)Only the most recent of2 resultswithin the time period is included. Prothrombin time 15.2 (H) 11.5 - 14.5 [place] sec [facility] INR 1.2 [place] Comment: [facility] THE The International Normalized Ratio (INR) is a therapeutic [facility] monitoring tool for patients who are stable on oral HOSPITAL anticoagulant therapy. An INR of 2.0-3.0 is suggested for deep vein thrombosis/pulmonary embolism. Specimen Blood Performing Organization Address City/[facility]/Zipcode Phone Number [facility] DEPARTMENT OF [facility] [place] [address] PATHOLOGY AND [facility] THE [address] [address] CBC with platelet and differential (08/06/2018 6:45 AM VIDEO NEWS EDITOR)Only the most recent of3 resultswithin the time period is included. WBC 3.27 (L) 4.50 - 11.00 [place] k/uL [facility] RBC 2.52 (L) 4.20 - 5.50 [place] m/uL [facility] HGB 7.7 (L) 12.0 - 16.0 [place] g/dL [facility] HCT 24.6 (L) 37.0 - 47.0 % [facility] MCV 97.6 82.0 - 100.0 [place] fL [facility] MCH 30.6 27.0 - 34.0 pg [facility] MCHC 31.3 31.0 - 37.0 [place] g/dL [facility] RDW - SD 72.1 (H) 37.0 - 55.0 fL [facility] MPV 10.3 8.8 - 13.2 fL [facility] Platelet count 115 (L) 150 - 400 k/uL [facility] Nucleated RBC 0.00 /100 WBC [facility] Neutrophils 72.2 (H) 39.0 - 69.0 % [facility] Lymphocytes 6.7 (L) 25.0 - 45.0 % [facility] Monocytes 14.4 (H) 0.0 - 10.0 % [facility] Eosinophils 4.9 0.0 - 5.0 % [facility] Basophils 1.5 (H) 0.0 - 1.0 % [facility] Immature granulocytes 0.3Comment: 0.0 - 1.0 % [place] "Immature [facility] granulocytes"[facility] (promyelocytes HOSPITAL , myelocytes, metamyelocytes ) Specimen Blood Performing Organization Address City/[facility]/Zipcode Phone Number [place] [address], [address] [place] [address] PATHOLOGY AND GENOMIC S MEDICINE [facility] [address] [place] [phone] Lactic acid level (08/06/2018 6:45 AM VIDEO NEWS EDITOR) Lactic acid 1.6 0.5 - 2.2 mmol/L [facility] Specimen Plasma specimen Performing Organization Address City/[facility] Phone Number [facility] DEPARTMENT [place] [address], [address] [place] [address] PATHOLOGY AND GENOMIC S MEDICINE [facility] THE [address] [place] [id number] Lactic acid level, SEPSIS - Now and repeat 2x every 3 hours (08/05/2018 6:00 PM VIDEO NEWS EDITOR)Only the most recent of2 resultswithin the time period is included. Lactic acid 1.5 0.5 - 2.2 mmol/L [facility] Specimen Plasma specimen Performing Organization Address City/[facility]/Zipcode Phone Number [facility] [place] [address], [address] [place] [address] PATHOLOGY AND GENOMIC S MEDICINE [facility] THE [address] [address] [place] [phone] [place] [address] Ammonia level (08/05/2018 4:35 AM VIDEO NEWS EDITOR)Only the most recent of2 resultswithin the time period is included. Ammonia 276 (H) 11 - 51 umol/L [facility] Specimen Blood Performing Organization Address [facility] Phone Number [facility] [place] [address], [address] [place] [address] PATHOLOGY AND GENOMIC S MEDICINE [facility] THE [address] [place] [address] [place] [address] XR Chest 1 Vw Portable (08/04/2018 5:19 AM VIDEO NEWS EDITOR) Specimen Narrative Performed At Examination:XR CHEST 1 VW PORTABLE [facility] Clinical History:sob Comparison: None. Technique: Single frontal view of the chest is obtained. Findings: Low lung volume with vascular crowding is noted. The heart size is normal. No pleural effusion is seen. Impression: Low lung volume but no acute infiltrate. [facility]-[id number] Procedure Note Hm Interface, Radiology Results Incoming - 08/04/2018 5:46 AM VIDEO NEWS EDITOR Examination: XR CHEST 1 VW PORTABLE Clinical History: sob Comparison: None. Technique: Single frontal view of the chest is obtained. Findings: Low lung volume with vascular crowding is noted. The heart size is normal. No pleural effusion is seen. Impression: Low lung volume but no acute infiltrate. [facility]-[id number] Performing Organization Address City/[facility]/Zipcode Phone Number [facility] [address] [place] [address] Magnesium level (08/04/2018 5:00 AM VIDEO NEWS EDITOR) Magnesium 1.9 1.6 - 2.6 mg/dL [facility] Specimen Plasma specimen Performing Organization Address City/State/Zipcode [place] [address], [address] [place] [address] PATHOLOGY AND GENOMIC S MEDICINE [facility] THE [address] [place] [address] [facility] Comprehensive metabolic panel (08/04/2018 5:00 AM VIDEO NEWS EDITOR) Sodium 137 135 - 148 [place] mEq/L [facility] Potassium 3.8 3.5 - 5.0 [place] mEq/L [facility] Chloride 109 98 - 112 [place] mEq/L [facility] CO2 13 (LL) 24 - 31 mEq/L [place] Comment: [facility] THE CO2 Results called to and read back by FISH VIEYRA RN/ED at [id number] [facility] by [facility]. HOSPITAL Anion gap 15 7 - 15 mEq/L [facility] BUN 23 (H) 6 - 20 mg/dL [facility] Creatinine 1.65 (H) 0.50 - 0.90 [place] mg/dL [facility] Glucose 94 65 - 99 mg/dL [facility] Calcium 8.6 8.3 - 10.2 [place] mg/dL [facility] Protein 7.0 6.3 - 8.3 [place] Comment: g/dL [facility] [place] 4.6-7.0 g/dL [facility] 1 week 4.4-7.6 g/dL HOSPITAL 7 months-1year5.1-7.3 g/dL 1-2 years5.6-7.5 g/dL >3 years6.0-8.0 g/dL 18-150 6.3-8.3 g/dL Albumin 3.1 (L) 3.5 - 5.0 [place] g/dL [facility] A/G ratio 0.8 0.7 - 3.8 [facility] Alkaline phosphatase 147 (H) 35 - 104 U/L [facility] AST 66 (H) 10 - 35 U/L [facility] ALT 36 5 - 50 U/L [facility] Total bilirubin 1.0 0.0 - 1.2 [place] mg/dL [facility] Specimen Plasma specimen Performing Organization Address City/State/Zipcode [place] Number [place] [address], [address] [place] [address] PATHOLOGY AND GENOMIC S MEDICINE KE[facility] MCWILLIAMS THE [address] [place] [address] [facility] after 01/28/2018 Advance Directives Patient has advance care planning documents on file. For more information, please contact:Keith Mcwilliams[address] [place] [address]
--- OUTSIDE RECORDS SUMMARY | 2019-01-29 16:34 | XMS REPORT | Clinical Summary ---
:1970 Author Organization [facility] Address [address] [place] [address] Care Team Providers Name Role Phone Tray [...] 0 10/22/2017 Active (PROAMATINE) 5 MG tablet spironolactone Take 100 mg 0 Active (ALDACTONE) 100 MG by mouth 2 tablet (two) times daily. rifAXIMin 550 mg Tab Take 1 [...] 05/27/2018 Discontinued 4 MG tablet HOURS NEEDED pantoprazole DAILY 0 10/22/2017 12/08/2018 Discontinued (PROTONIX) 40 MG tablet bumetanide (BUMEX) 2 Take 2 mg by 0 12/08/2018 Discontinued MG tablet mouth daily. rifAXIMin 550 mg Tab Take 1 tablet 60 tablet 0 05/27/2018 05/27/2018 Discontinued (550 mg total) by mouth 2 (two) times daily. Active Problems Problem Noted Date Bleeding 12/07/2018 Cirrhosis 12/07/2018 Anemia 12/07/2018 Hepatic encephalopathy 05/23/2018 s/p incisional hernia repair [...] test [facility]. Portal hypertension 11/27/2017 Last Assessment & Plan: Portal hypertension is evidenced by gastric and esophageal varices seen on EGD and CT scan 10/21/17 and splenomegaly. Hypertension Liver disorder Encounters Date Type Specialty Care Team Description 12/06/[address] [facility] Internal [place], Portal hypertension (HCC); - Encounter Medicine Richard-Filiberto Decompensated hepatic cirrhosis (HCC); 12/08/2018 MD Lupillo Other ascites; Lino, Ascites due to alcoholic cirrhosis (HCC); Lionel Brady, Screening for malignant neoplasm; Immunization counseling; Esophageal varices without bleeding, unspecified esophageal varices type (HCC); Portal hypertensive gastropathy (HCC) 07/24/2018 [facility] Radiology Alison Kebede, No Show Encounter 07/09/2018 [facility] Radiology Alison Kebede, No Show Encounter 06/21/2018 Outside Orders Central Scheduling System, Alcoholic cirrhosis of liver with ascites (HCC) (Primary Dx); Provider Not In Other ascites 06/13/2018 Telephone Case Management [place] hepatic encephalopathy Enriqueta Swain RN (Social Work Follow-up Call / CM - Transition Care Team ) 06/12/2018 Telephone Lily Smith hepatic duy Velasquez RN (#4 call- final attempt of 7day call) 06/12/2018 Telephone Lily Smith RN (#3 call- 2nd attempt of 7day f/u call) 06/10/2018 Telephone Lily Smith RN (#2 call- 7day f/u call 1st attempt) 06/02/2018 Telephone Case Management [place], Liver Cirrhosis Enriqueta Swain, RN (Social Work Referral / CM - Transition Care Team ) 06/02/2018 Telephone Case Management [place], Liver Cirrhosis Enriqueta Swain, RN (Social Work Referral / CM - Transition Care Team ) 05/30/2018 Telephone Case Management [place], Liver Cirrhosis Enriqueta Swain, RN (Social Work Referral / CM - Transition Care Team ) 05/30/2018 Telephone Case Management [place], Liver Cirrhosis Enriqueta Swain RN (Social Work Referral/ CM - Transition Care Team ) 05/29/2018 Telephone Lily Smith liver cirrhosis (#1 M, RN call- 24-48hr f/u call) 05/23/[address] [facility] Internal [place], Hepatic encephalopathy (HCC) (Primary Dx); - Encounter Medicine Gilberto Anemia, unspecified type; 05/27/2018 MD John Hypokalemia; Kellie Melo Acute renal failure, unspecified acute renal failure type ( HCC); MD Kate Elevated LFTs; Chelsie, Acute blood loss anemia; Enriqueta Moore, Acute hepatic encephalopathy; Acute pain 05/23/2018 Orders Only General Internal Medicine 05/23/2018 Telephone Radiology Arianne Farmer RN 02/11/2018 Anesthesia Event Roxy Anderson MD 02/11/2018 Surgery Tmaera Mayorga HERNIORRHAPHY,UMBILICA MD Nelson L 02/10/2018 Anesthesia Event Gastroenterology Rafael Almaguer MD 02/10/2018 Surgery Gastroenterology Raul, Suneal UPPER ENDOSCOPY MD Chanel 02/10/[address] [facility] Internal Naresh Alvarado Alcoholic cirrhosis of liver with ascites (HCC); - Encounter Medicine MD Kavya Acute blood loss anemia; [...] Medicine Naresh Alvarado GI Bleeding MD Kavya after 01/28/2018 Social History Tobacco Use Types [...] Vital Sign Reading Time Taken Blood Pressure 109/55 12/08/2018 11:00 AM CDT Pulse 79 12/08/2018 11:00 AM CDT Temperature 36.6 C (97.9 F) 12/08/2018 11:00 AM CDT Respiratory Rate 18 12/08/2018 11:00 AM CDT Oxygen Saturation 98% 12/08/2018 11:00 AM CDT Inhaled Oxygen Concentration 22.5% 02/10/2018 12:43 PM CDT Weight 55.8 kg (123 lb) 05/23/2018 11:00 PM CDT Height 167.6 cm (5' 6") 12/06/2018 11:13 AM CDT Body Mass Index 19.85 05/23/2018 11:00 PM CDT Plan of Treatment Not on file Procedures Procedure Name Priority Date/Time Associated Comments Diagnosis TRANSFUSION SERVICE 12/09/2018 6:15 REPORT - SCAN PM CDT REPORT OF PROCEDURE - 12/09/2018 1:00 ENDOSCOPY SCAN PM CDT PREPARE LEUKO-REDUCED Routine 12/08/2018 11:54 Results for this RBC PM CDT procedure are in the results section. TRANSFUSION SERVICE 12/08/2018 6:01 REPORT - SCAN PM CDT CBC W/PLT COUNT & AUTO Routine 12/08/2018 4:31 Results for this DIFFERENTIAL AM CDT procedure are in the results section. CBC W/PLT COUNT & AUTO Routine 12/08/2018 4:31 Results for this DIFFERENTIAL AM CDT procedure are in the results section. BASIC METABOLIC PANEL Routine 12/08/2018 4:31 Results for this (7) AM CDT procedure are in the results section. TRANSFUSION SERVICE 12/07/2018 6:01 REPORT - SCAN PM CDT CBC W/PLT COUNT & AUTO Routine 12/07/2018 7:10 Results for this DIFFERENTIAL AM CDT procedure are in the results section. CBC W/PLT COUNT & AUTO Routine 12/07/2018 7:10 Results for this DIFFERENTIAL AM CDT procedure are in the results section. BASIC METABOLIC PANEL Routine 12/07/2018 7:10 Results for this (7) AM CDT procedure are in the results section. TRANSFUSE Routine 12/07/2018 6:10 LEUKO-REDUCED RED AM CDT BLOOD CELLS TRANSFUSE Routine 12/07/2018 2:24 LEUKO-REDUCED RED AM CDT BLOOD CELLS TYPE AND SCREEN, Routine 12/06/2018 6:10 Results for this AUTOMATED PM CDT procedure are in the results section. US PARACENTESIS Routine 12/06/2018 5:43 Results for this PM CDT procedure are in the results section. PROTHROMBIN TIME/INR Routine 12/06/2018 2:49 Results for this PM CDT procedure are in the results section. APTT Routine 12/06/2018 2:49 Results for this PM CDT procedure are in the results section. CBC W/PLT COUNT & AUTO Routine 12/06/2018 12:42 Results for this DIFFERENTIAL PM CDT procedure are in the results section. AMMONIA Routine 12/06/2018 12:42 Results for this PM CDT procedure are in the results section. B-TYPE NATRIURETIC Routine 12/06/2018 12:42 Results for this FACTOR (BNP) PM CDT procedure are in the results section. CBC W/PLT COUNT & AUTO Routine 12/06/2018 12:42 Results for this DIFFERENTIAL PM CDT procedure are in the results section. COMPREHENSIVE Routine 12/06/2018 12:42 Results for this METABOLIC PANEL PM CDT procedure are in the results section. BASIC METABOLIC PANEL Routine 05/27/2018 2:39 Results [...] 434 ms QTC Calculation(Bazett) 554 ms P Wilkinson 71 degrees R Wilkinson 36 degrees T Wilkinson 61 degrees Normal sinus rhythm Nonspecific ST [...] 436 ms QTC Calculation(Bazett) 515 ms P Wilkinson 94 degrees R Wilkinson 24 degrees T Wilkinson 27 degrees Normal sinus rhythm Low voltage [...] 430 ms QTC Calculation(Bazett) 517 ms R Wilkinson 30 degrees T Wilkinson 20 degrees Accelerated Junctional rhythm Septal infarct [...] 0 ms QTC Calculation(Bazett) 0 ms R Wilkinson 0 degrees T Wilkinson 0 degrees No QRS complexes found, no [...] in the results section. after 01/28/2018 Results TRANSFUSION SERVICE REPORT - SCAN (12/09/2018 6:15 PM CDT)Only the most recent of10 resultswithin the time period is included. Narrative Performed At EKG-SCANNED (12/09/2018 1:00 PM CDT) Narrative Performed At Prepare Leuko-Red RBC (12/08/2018 11:54 PM CDT)Only the most recent of3 resultswithin the time period is included. CROSSMATCH COMPATIBLE SAFETRACE TX Unit ABO O Pos SAFETRACE TX UNIT NUMBER [id number] [facility]AFET[facility]ACE TX Status TX_TIMEINCHART [facility]AFET[facility] TX Blood Bank Product RED BLOOD CELLS SAFETRACE TX PRODUCT CODE [id number] SAFETRACE TX CROSSMATCH COMPATIBLE SAFETRACE TX Unit ABO O Pos SAFETRACE TX UNIT NUMBER [id number] SAFETRACE TX Status TX_TIMEINCHART SAFETRACE TX Blood Bank Product RED BLOOD CELLS [place]ET[place] PRODUCT CODE [id number] [facility] [place] Specimen Other Performing Organization Address City/State/Zipcode Phone Number [employer] [place] CBC with platelet count + automated diff (12/08/2018 4:31 AM CDT)Only the most recent of14 resultswithin the time period is included. WBC 4.3 3.5 - 10.5 K/L [facility] RBC 2.91 (L) 3.93 - 5.22 M/L [facility] Hemoglobin 8.1 (L) 11.2 - 15.7 GM/DL [facility] Hematocrit 25.6 (L) 34.1 - 44.9 % [facility] MCV 88.0 79.4 - 94.8 fL [facility] MCH 27.8 25.6 - 32.2 pg [facility] MCHC 31.6 (L) 32.2 - 35.5 GM/DL [facility] RDW 16.3 (H) 11.7 - 14.4 % [facility] Platelets 129 (L) 150 - 450 K/CU MM [facility] MPV 11.5 9.4 - 12.3 fL [facility] nRBC 0 0 - 0 /100 WBC [facility] % Neutros 71 % [facility] % Lymphs 6 % [facility] % Monos 14 % [facility] % Eos 7 % [facility] % Baso 1 % [facility] # Neutros 3.07 1.56 - 6.13 K/L [facility] # Lymphs 0.27 (L) 1.18 - 3.74 K/L [facility] # Monos 0.60 (H) 0.24 - 0.36 K/L [facility] # Eos 0.29 0.04 - 0.36 K/L [facility] # Baso 0.06 0.01 - 0.08 K/L [facility] Immature Granulocytes-Relative 0 0 - 1 % [facility] Specimen Blood Performing Organization Address City/[facility]/Zipcode Phone Number [address] [address] CENTER Basic Metabolic Panel (12/08/2018 4:31 AM CDT)Only the most recent of10 resultswithin the time period is included. Sodium 133 (L) 136 - 145 meq/L [facility] Potassium 3.0 (L) 3.5 - 5.1 meq/L [facility] Chloride 107 98 - 107 meq/L [facility] CO2 18 (L) 22 - 29 meq/L [facility] BUN 15 7 - 21 mg/dL [facility] Creatinine 0.93 0.57 - 1.25 mg/dL [facility] Glucose 94 70 - 105 mg/dL [facility] Calcium 8.1 (L) 8.4 - 10.2 mg/dL [facility] EGFR 64Comment: ESTIMATED GFR IS mL/min/1.73 sq m [facility] NOT ACCURATE [facility] CLEARANCE IN PREDICTING GLOMERULAR FILTRATION RATE. ESTIMATED GFR IS NOT APPLICABLE FOR DIALYSIS PATIENTS. Specimen Blood Performing Organization Address City/State/Zipcode Phone Number [facility] [address] [place] [address] [phone] CENTER Transfuse Leuko-Red RBC (12/07/2018 6:10 AM CDT)Only the most recent of8 resultswithin the time period is included.Type and screen, automated (2018 6:10 PM CDT)Only the most recent of3 resultswithin the time period is included. ABO/RH AUTOMATED (BEAKER) O POSITIVE [facility] Ab Scrn NEGATIVE [facility] Specimen Blood Performing Organization Address City/State/Zipcode Phone Number [facility] [address] [place], [place] [phone] US paracentesis (12/06/2018 5:43 PM CDT)Only the most recent of4 resultswithin the time period is included. Specimen Narrative Performed At FINAL REPORT GE RIS Paracentesis dated 12/06/2018 Procedure: Ultrasound-guided paracentesis. Preprocedure diagnosis: Ascites Postprocedure diagnosis: Ascites Conscious sedation: None. Radiologist: Laure Jules M.D. Machine Operator Picker: None Anesthesia: 1% Xylocaine mixed with sodium bicarbonate local anesthesia. Technique: After obtaining informed consent, ultrasound-guided paracentesis was performed under usual sterile technique. Using a 5 khmer drainage catheter, puncture was made in the right lower quadrant abdomen. Approximately 11,500 cc of serous fluid was removed. Patient tolerated the procedure well without complication. Complication: None Graft/Implant: None Estimated Blood Loss: None Impression: Ultrasound-guided paracentesis. Signed: Laure Jules MD Report Verified Date/Time:12/06/2018 17:49:10 Reading Location: [facility] B1 [id number] Consult Reading Room Procedure Note Interface, External Ris In - 12/06/2018 5:55 PM CDT FINAL REPORT Paracentesis dated 12/06/2018 Procedure: Ultrasound-guided paracentesis. Preprocedure diagnosis: Ascites Postprocedure diagnosis: Ascites Conscious sedation: None. Radiologist: Laure Jules M.D. Machine Operator Picker: None Anesthesia: 1% Xylocaine mixed with sodium bicarbonate local anesthesia. Technique: After obtaining informed consent, ultrasound-guided paracentesis was performed under usual sterile technique. Using a 5 khmer drainage catheter, puncture was made in the right lower quadrant abdomen. Approximately 11,500 cc of serous fluid was removed. Patient tolerated the procedure well without complication. Complication: None Graft/Implant: None Estimated Blood Loss: None Impression: Ultrasound-guided paracentesis. Signed: Laure Jules MD Report Verified Date/Time: 12/06/2018 17:49:10 Reading Location: [facility] [id number] Consult Reading Room Performing Organization Address [facility] Phone Number [facility] aPTT (12/06/2018 2:49 PM CDT)Only the most recent of3 resultswithin the time period is included. PTT 35.9 22.5 - 36.0 seconds [facility] Specimen Blood Performing Organization Address [facility] Phone Number [address] [address] CENTER Prothrombin time/INR (12/06/2018 2:49 PM CDT)Only the most recent of4 resultswithin the time period is included. Protime 16.7 (H) 11.7 - 14.7 seconds [facility] INR 1.4 <=5.9 [facility] Specimen Blood Narrative Performed At RECOMMENDED COUMADIN/WARFARIN INR THERAPY [facility] RANGES STANDARD DOSE: 2.0 - 3.0 Includes: PROPHYLAXIS for venous thrombosis, systemic embolization; TREATMENT for venous thrombosis and/or pulmonary embolus. HIGH RISK: Target INR is 2.5-3.5 for patients with mechanical heart valves. Performing Organization Address [facility] Phone Number [address] [address] CENTER B-type Natriuretic Factor (BNP) (12/06/2018 12:42 PM CDT) BNP 45 0 - 100 pg/mL [facility] Specimen Blood Performing Organization Address City/State/Zipcode Phone Number [facility] [address] [place] [address] [phone] CENTER Ammonia (12/06/2018 12:42 PM CDT)Only the most recent of4 resultswithin the time period is included. Ammonia 62 18 - 72 mol/L [facility] Specimen Blood Performing Organization Address City/State/Zipcode Phone Number [facility] [address] [place] [address] [phone] [place] Comprehensive metabolic panel (12/06/2018 12:42 PM CDT)Only the most recent of5 resultswithin the time period is included. Protein, Total 6.6 6.0 - 8.3 gm/dL [facility] Albumin 3.3 (L) 3.5 - 5.0 g/dL [facility] Alkaline Phosphatase 152 (H) 40 - 150 U/L [facility] Total Bilirubin 1.3 (H) 0.2 - 1.2 mg/dL [facility] Sodium 135 (L) 136 - 145 meq/L [facility] Potassium 4.5 3.5 - 5.1 meq/L [facility] Chloride 112 (H) 98 - 107 meq/L [facility] CO2 15 (L) 22 - 29 meq/L [facility] BUN 11 7 - 21 mg/dL [facility] Creatinine 0.70 0.57 - 1.25 mg/dL [facility] Glucose 85 70 - 105 mg/dL [facility] Calcium 8.3 (L) 8.4 - 10.2 mg/dL [facility] AST 42 (H) 5 - 34 U/L [facility] ALT 18 6 - 55 U/L [facility] EGFR 89Comment: ESTIMATED GFR mL/min/1.73 sq m [facility] IS NOT ACCURATE [facility] CREATININE CLEARANCE IN PREDICTING GLOMERULAR FILTRATION RATE. ESTIMATED GFR IS NOT APPLICABLE FOR DIALYSIS PATIENTS. Specimen Blood Performing Organization Address City/[facility]/Zipcode Phone Number [facility] [address] [place] [address] CENTER Body fluid culture (05/26/2018 3:20 PM CDT)Only the most recent of2 resultswithin the time period is included. Result No growth [facility] Gram Stain Result 2+ WBCs [facility] Gram Stain Result No organisms seen [facility] Specimen Body Fluid Performing Organization Address [facility] Phone Number [facility] [address] [place] [address] [phone] Body fluid cell count with differential (05/26/2018 3:20 PM CDT)Only the most recent of2 resultswithin the time period is included. Appearance Hazy (A) Clear [facility] Color Straw Colorless, Straw [facility] RBCs 1,220 (H) <=1 /uL [facility] Adjusted WBC Count 193 (H) <=5 /cu mm [facility] Lining Cells 14 (H) <=1 /cu mm [facility] % Segs 44 % [facility] % Lymphs 26 % [facility] % Monos 30 % [facility] % Eos 0 % [facility] % Baso 0 % [facility] Interpretation Negative for malignant [facility] cells. Pathologist: Stanislav Sofia M.D. [facility] (electronic signature) Container Body Fluid Sterile Cup [facility] Specimen Body Fluid Performing Organization Address [facility] Phone Number [facility] [address] [place] [address] Potassium (05/26/2018 5:16 AM CDT)Only the most recent of3 resultswithin the time period is included. Potassium 3.7 3.5 - 5.5 meq/L [facility] Specimen Blood Performing Organization Address [facility] Facility[facility] Phone Number [facility] [address] [place], [place] [phone] Magnesium (05/26/2018 5:16 AM CDT)Only the most recent of7 resultswithin the time period is included. Magnesium 2.1 1.5 - 3.0 mg/dL [facility] Specimen Blood Performing Organization Address [facility] Phone Number [facility] [address] [place] [address] Occult blood, stool (05/24/2018 1:38 PM CDT) Occult blood Positive (A) Negative [facility] Specimen Stool Performing Organization Address [facility] Phone Number [facility] [phone] [place] [phone] Sodium, random urine (05/24/2018 1:38 PM CDT)Only the most recent of2 resultswithin the time period is included. Sodium Urine 28 meq/L [facility] Specimen Urine Narrative Performed At [facility] Reference Range: No Normals Performing Organization Address [facility] Phone Number [facility] [address] [place] [address] [phone] Creatinine, random urine (05/24/2018 1:38 PM CDT)Only the most recent of2 resultswithin the time period is included. Creatinine, Ur 42.7 mg/dL [facility] Specimen Urine Narrative Performed At [facility] Reference Range: No Normals Performing Organization Address [facility] Phone Number [facility] [address] [place] [address] [phone] Alpha fetoprotein (AFP), tumor marker (05/24/2018 1:36 PM CDT) Alpha-Fetoprotein 5.5 <10.0 ng/mL [facility] Specimen Blood Performing Organization Address [facility] Phone Number [place] [phone] [place] [address] CENTER Hepatitis panel, acute (05/24/2018 1:36 PM CDT) Hep A IgM Nonreactive Nonreactive [facility] Hep B C IgM Nonreactive Nonreactive [facility] Hepatitis C Ab Nonreactive Nonreactive [facility] hepatitis B Surface Ag Nonreactive Nonreactive [facility] Specimen Blood Performing Organization Address City/State/Zipcode Phone Number [facility] [address] [place] [address] [phone] CENTER US renal complete (05/24/2018 11:37 AM CDT) Specimen Narrative Performed At FINAL REPORT [facility] RENAL ULTRASOUND HISTORY: Acute kidney injury [...] Report Verified Date/Time:05/24/2018 11:53:08 Reading Location: [address] Reading Room Procedure Note Interface, External [...] Report Verified Date/Time: 05/24/2018 11:53:08 Reading Location: [facility] C0[facility] Transitional Reading Room Performing Organization Address City/State/Zipcode Phone Number [facility] CT brain without IV contrast (05/23/2018 5:55 PM CDT) Specimen Narrative Performed At FINAL REPORT [facility] CT head without contrast 05/23/2018 5:55 PM [...] MD Report Verified Date/Time:05/23/2018 17:56:33 Reading Location: [facility] Radiology Reading Room Procedure Note Interface, [...] evaluation with MRI is recommended. Signed: Denis iSlver MD Report Verified Date/Time: 05/23/2018 17:56:33 Reading Location: [facility] Radiology Reading Room Performing Organization Address [facility] Phone Number GE RIS XR chest 1 view portable / bedside (05/23/2018 4:25 PM CDT) Specimen Narrative Performed At FINAL REPORT GE RIS CHEST AP PORTABLE History provided: Altered mental status Heart size normal. Lungs clear and vascularity normal. IMPRESSION: Clear chest. Signed: Gonzalo Serrano MD Report Verified Date/Time:05/23/2018 16:22:47 Reading Location: [facility] Radiology Reading Room Procedure Note Interface, External Ris In - 05/23/2018 4:45 PM CDT FINAL REPORT CHEST AP PORTABLE History provided: Altered mental status Heart size normal. Lungs clear and vascularity normal. IMPRESSION: Clear chest. Signed: Gonzalo Serrano MD Report Verified Date/Time: 05/23/2018 16:22:47 Reading Location: [facility] Radiology Reading Room Performing Organization Address [facility] Phone Number GE RIS ECG 12 lead (05/23/2018 3:52 PM CDT)Only the most recent of3 resultswithin the time period is included. Specimen Narrative Performed At Ventricular Rate 98 BPM GE MUSE Atrial Rate 98 BPM P-R Interval 136 ms QRS Duration 74 ms Q-T Interval 434 ms QTC Calculation(Bazett) 554 ms P Wilkinson 71 degrees R Wilkinson 36 degrees T Wilkinson 61 degrees Normal sinus rhythm Nonspecific ST abnormality Prolonged QT Abnormal ECG No previous ECGs available Procedure Note Interface, External Ris In - 05/26/2018 4:49 PM CDT Ventricular Rate 98 BPM Atrial Rate 98 BPM P-R Interval 136 ms QRS Duration 74 ms Q-T Interval 434 ms QTC Calculation(Bazett) 554 ms P Wilkinson 71 degrees R Wilkinson 36 degrees T Wilkinson 61 degrees Normal sinus rhythm Nonspecific ST abnormality Prolonged QT Abnormal ECG No previous ECGs available Performing Organization Address [facility] [place] Phone Number GE MUSE Urinalysis w/Microscopic (05/23/2018 3:47 PM CDT) Color, UA Yellow [facility] Clarity, UA Hazy [facility] Specific [place], UA 1.016 1.001 - 1.035 [facility] pH, UA 5.0 5.0 - 8.0 [facility] Protein, UA Negative Negative [facility] Glucose, UA Negative Negative [facility] Ketones, UA Negative Negative [facility] Bilirubin, UA Negative Negative [facility] Blood, UA Negative Negative [facility] Nitrite, UA Negative Negative [facility] Leukocytes, UA Negative Negative [facility] Urobilinogen, UA <1.0 0.2 - 1.0 mg/dL [facility] RBC, UA 1 /HPF [facility] WBC, UA 1 /HPF [facility] Bacteria, UA Rare [facility] Mucus Rare [facility] Squam Epithel, UA <1 /HPF [facility] Hyaline Casts, UA 4 /LPF [facility] Specimen Source [facility] Specimen Urine - Urine, Straight Catheter Performing Organization Address [facility] Phone Number [facility] [address] [place] [address] [phone] Urine culture (05/23/2018 3:47 PM CDT) Result No growth [facility] Specimen Urine - Urine, Straight Catheter Performing Organization Address [facility] [place] Phone Number [facility] [address] [place] [address] [phone] Blood culture (05/23/2018 3:39 PM CDT)Only the most recent of4 resultswithin the time period is included. Result No growth in 5 days [facility] Specimen Blood Performing Organization Address [facility] [place] Phone Number [facility] [address] [place] [address] Lactic acid, venous, whole blood (05/23/2018 3:38 PM CDT)Only the most recent of2 resultswithin the time period is included. Lactate, Venous 2.0Comment: Specimen moderately 0.5 - 2.2 mmol/L [facility] hemolyzed Specimen Blood Narrative Performed At [facility] Effective 12/07/2015: Units/Reference Range Change New: 0.5-2.2 mmol/LPrevious: 5-20 mg/dL Performing Organization Address [facility] [place] Phone Number [facility] [address] [place] [address] Lipase (05/23/2018 3:38 PM CDT)Only the most recent of2 resultswithin the time period is included. Lipase 82 (H) 8 - 78 U/L [facility] Specimen Blood Performing Organization Address [facility] [place] Phone Number [facility] [address] [place] [address] [phone] RHYTHM STRIP - SCAN (02/18/2018 10:30 AM CDT) Narrative Performed At POC-Glucose meter (02/15/2018 11:14 AM CDT)Only the most recent of17 resultswithin the time period is included. POC-Glucose Meter 119 (H)Comment: TESTED AT 70 - 110 mg/dL [address] [address] Specimen Blood Performing Organization Address [facility] [place] Phone Number [address] [address] CENTER CBC (Hemogram only) (02/15/2018 5:05 AM CDT)Only the most recent of3 resultswithin the time period is included. WBC 5.1 3.5 - 10.5 K/L [facility] RBC 2.79 (L) 3.93 - 5.22 M/L [facility] Hemoglobin 8.8 (L) 11.2 - 15.7 GM/DL [facility] Hematocrit 27.2 (L) 34.1 - 44.9 % [facility] MCV 97.5 (H) 79.4 - 94.8 fL [facility] MCH 31.5 25.6 - 32.2 pg [facility] MCHC 32.4 32.2 - 35.5 GM/DL [facility] RDW 18.8 (H) 11.7 - 14.4 % [facility] Platelets 86 (L) 150 - 450 K/CU MM [facility] MPV 12.6 (H) 9.4 - 12.3 fL [facility] nRBC 0 0 - 0 /100 WBC [facility] Specimen Blood Performing Organization Address City/[facility]/Zipcode Phone Number [address] [address] CENTER Phosphorus (02/15/2018 5:05 AM CDT)Only the most recent of6 resultswithin the time period is included. Phosphorus 3.5 2.3 - 4.7 mg/dL [facility] Specimen Blood Performing Organization Address City/[facility]/Zipcode Phone Number [address] [address] CENTER Hepatic function panel (02/15/2018 5:05 AM CDT)Only the most recent of5 resultswithin the time period is included. Protein, Total 6.3 6.0 - 8.3 gm/dL [facility] Albumin 3.9 3.5 - 5.0 g/dL [facility] Total Bilirubin 1.7 (H) 0.2 - 1.2 mg/dL [facility] Bilirubin, Direct 1.0 (H) 0.1 - 0.5 mg/dL [facility] Alkaline Phosphatase 126 40 - 150 U/L [facility] AST 118 (H) 5 - 34 U/L [facility] ALT 56 (H) 6 - 55 U/L [facility] Specimen Blood Performing Organization Address City/[facility]/Zipcode Phone Number [facility] [address] [place] [address] CENTER Prepare RBC (02/12/2018 11:54 PM CDT) CROSSMATCH COMPATIBLE SAFETRACE TX Unit ABO O Pos SAFETRACE TX UNIT NUMBER [id number] SAFETRACE TX Status RETURNED FROM ISSUE SAFETRACE TX Blood Bank Product RED BLOOD CELLS SAFETRACE TX PRODUCT CODE [id number] SAFETRACE TX CROSSMATCH COMPATIBLE SAFETRACE TX Unit ABO O Pos SAFETRACE TX UNIT NUMBER [id number] SAFETRACE TX Status TRANSFUSED SAFETRACE TX Blood Bank Product RED BLOOD CELLS SAFETRACE TX PRODUCT CODE [id number] SAFETRACE TX Performing Organization Address [facility] Phone Number SAFETRACE TX HIV-1 Antigen with HIV-1/2 Antibody (02/12/2018 5:29 AM CDT) HIV-1 Antigen with HIV 1&2 Nonreactive Nonreactive [facility] Specimen Blood Performing Organization Address City/[facility] Phone Number [address] [address] CENTER PT/aPTT (02/11/2018 3:47 PM CDT)Only the most recent of2 resultswithin the time period is included. Protime 18.7 (H) 11.7 - 14.7 seconds [facility] INR 1.6 <=5.9 [facility] PTT 36.5 (H) 22.5 - 36.0 seconds [facility] Specimen Blood Narrative Performed At [facility] RECOMMENDED COUMADIN/WARFARIN INR THERAPY RANGES STANDARD DOSE: 2.0 - 3.0 Includes: PROPHYLAXIS for venous thrombosis, systemic embolization; TREATMENT for venous thrombosis and/or pulmonary embolus. HIGH RISK: Target INR is 2.5-3.5 for patients with mechanical heart valves. Performing Organization Address [facility]/Zipcode Phone Number [address] [address] [phone] [place] Tissue Exam (02/11/2018 1:38 PM CDT) Case Report Surgical Pathology Report Case: [id number] [facility] Authorizing Provider:Tamera Mayorga MD Collected: 02/11/2018 1338 [facility] Ordering Location: [place] [address] ICUReceived: 02/11/2018 1613 Pathologist: Herminia Hope MD Specimen:Hernia Sac, Umbilical DIAGNOSIS SKIN AND HERNIA SAC, EXCISION: [facility] - SKIN WITH ULCER, NECROSIS, HERNIA WITH FIBROSIS, ADHESION AND CHRONIC INFLAMMATION [facility] Signing Pathologist Direct Phone Line: [phone] CPT Code(s) 25796 [facility] CLINICAL HISTORY Incarcerated umbilical [facility] hernia [facility] SPECIMEN SOURCE Hernia sac umbilical [facility] GROSS DESCRIPTION The specimen is received in [facility] a formalin-filled container [facility] labeled with the patient's information and labeled "umbilical hernial sac" and consists of hemorrhagic membranous tissue measuring 6 x 3 x 0.2 cm with overlying brown skin measuring 5.5 x 3 x 0.3 cm, submitted in A1 and A2. There are no areas of suspicion. CG/ew MICROSCOPIC DESCRIPTION Performed [facility] Specimen Tissue - Hernia Sac, Umbilical Performing Organization Address [facility]/Zipcode Phone Number [address] [address] [phone] CENTER AFB culture + smear (02/11/2018 1:34 PM CDT) Result No acid-fast bacilli isolated in [facility] 42 days CENTER [employer] Smear No acid fast bacilli seen [facility] Specimen Wound Performing Organization Address [facility]/Zipcode Phone Number [address] [address] [phone] [place] Anaerobic culture (02/11/2018 1:34 PM CDT) Result No anaerobes isolated [facility] Specimen Wound Performing Organization Address [facility] Phone Number [address] [address] [place] Surgically obtained culture + gram stain (02/11/2018 1:34 PM CDT) Result No growth [facility] Gram Stain Result <1+ WBCs [facility] Gram Stain Result No organisms seen [facility] Specimen Wound Performing Organization Address [facility] [place] [facility] Phone Number [address] [address] [place] Fungus culture + smear (02/11/2018 1:34 PM CDT) Result No fungus isolated in 28 days [facility] Fungus Smear No fungi seen [facility] Specimen Wound Performing Organization Address [facility] Phone Number [address] [address] [place] SPIN/CONCENTRATION CHARGE (02/11/2018 1:34 PM CDT) Concentration charged Done [facility] Specimen Wound Performing Organization Address [facility] [place] [facility] Phone Number [address] [address] [place] Potassium-Stat Lab (02/11/2018 1:21 PM CDT) Potassium 3.9 3.6 - 5.5 meq/L [facility] Specimen Other Narrative Performed At THIS IS A VENOUS SAMPLE [facility] THIS IS A VENOUS SAMPLE THIS IS A VENOUS SAMPLE Performing Organization Address [facility] [place] [facility] Phone Number [address] [address] [phone] [place] Sodium Na-Stat Lab (02/11/2018 1:21 PM CDT) Sodium 135 135 - 148 meq/L [facility] Specimen Other Narrative Performed At THIS IS A VENOUS SAMPLE [facility] THIS IS A VENOUS SAMPLE THIS IS A VENOUS SAMPLE Performing Organization Address [facility] [place] [facility] Phone Number [address] [address] [phone] [place] Glucose-Stat Lab (02/11/2018 1:21 PM CDT) Glucose 122 (H) 70 - 110 mg/dL [facility] Specimen Other Narrative Performed At THIS IS A VENOUS SAMPLE [facility] THIS IS A VENOUS SAMPLE THIS IS A VENOUS SAMPLE Performing Organization Address [facility] [place] [facility] Phone Number [address] [address] [place] HGB/HCT (H&H)-Stat Lab (02/11/2018 1:21 PM CDT) Hemoglobin 8.7 (L) 12.0 - 15.0 g/dL [facility] Hematocrit 26.0 (L) 36.0 - 45.0 % [facility] Specimen Other Narrative Performed At THIS IS A VENOUS SAMPLE [facility] Performing Organization Address [facility] [place] [facility] Phone Number [address] [address] [phone] [place] Calcium, Ionized (02/11/2018 1:21 PM CDT) Calcium, Ion 1.07 (L) 1.12 - 1.27 mmol/L [facility] pH, Blood 7.28 [facility] Specimen Blood Performing Organization Address [facility] Phone Number [address] [address] [place] US abdomen complete (02/11/2018 6:57 AM CDT) Specimen Narrative Performed At FINAL REPORT [facility] Abdominal Ultrasound Clinical Diagnosis: Ascites acute renal [...] MD Report Verified Date/Time:02/11/2018 09:32:36 Reading Location: [address] Ultrasound Reading Room Procedure Note Interface, [...] Report Verified Date/Time: 02/11/2018 09:32:36 Reading Location: [place] [id number] Ultrasound Reading Room Performing Organization Address City/State/Zipcode Phone Number [facility] abdomen/pelvis without iv contrast (02/11/2018 12:01 AM CDT) Specimen Narrative Performed At FINAL REPORT [facility] HISTORY : Hernia, complicated Technique: Multiple axial [...] MD Report Verified Date/Time:02/11/2018 07:50:19 Reading Location: [facility] Diagnostic Imaging Reading Room - [place] [address] Procedure Note Interface, External Ris In - [...] colopathy or underdistention. 5. Cholelithiasis. Signed: Jesse Hatahway MD Report Verified Date/Time: 02/11/2018 07:50:19 Reading Location: [facility] Diagnostic Imaging Reading Room - [place] [address] Performing Organization Address [facility] Phone Number RIS Protein, random urine (02/10/2018 6:15 PM CDT) Protein, Urine 19 (H) 0 - 14 mg/dL [facility] Specimen Urine Performing Organization Address [facility] Phone Number [address] [address] [place] Screen, urine (02/10/2018 6:14 PM CDT) Preg Test, Ur Negative [facility] Specimen Urine Performing Organization Address [facility] Phone Number [address] [address] [place] REPORT OF PROCEDURE - ENDOSCOPY URL (02/10/2018 4:35 PM CDT) Narrative Performed At Urinalysis w/Microscopic + Reflex to Culture (02/10/2018 4:08 AM CDT) Color, UA Yellow [facility] Clarity, UA Hazy [facility] Specific [place], UA 1.013 1.001 - 1.035 [facility] pH, UA 6.0 5.0 - 8.0 [facility] Protein, UA 10 mg/dL (A) Negative [facility] Glucose, UA Negative Negative [facility] Ketones, UA Trace (A) Negative [facility] Bilirubin, UA Negative Negative [facility] Blood, UA Negative Negative [facility] Nitrite, UA Negative Negative [facility] Leukocytes, UA Negative Negative [facility] Urobilinogen, UA 0.2 0.2 - 1.0 mg/dL [facility] RBC, UA <1 /HPF [facility] WBC, UA 2 /HPF [facility] Bacteria, UA Rare [facility] Mucus Rare [facility] Squam Epithel, UA 8 /HPF [facility] Hyaline Casts, UA 70 /LPF [facility] Amorphous Crystals Rare [facility] Specimen Source [facility] Specimen Urine Performing Organization Address City/State/Zipcode Phone Number [facility] [address] [place] [address] CENTER Rapid drug screen, urine (02/10/2018 4:08 AM CDT) Barbiturate Screen Negative Negative [facility] Benzodiazepine Screen Negative Negative [facility] Cocaine (Metab.) Screen Negative Negative [facility] Methadone Screen Negative Negative [facility] Opiate Screen Negative Negative [facility] Cannabinoid Screen Negative Negative [facility] Amph/Methamph Screen Negative Negative [facility] Phencyclidine Screen Negative Negative [facility] Oxycodone Screen Negative Negative [facility] Specimen Urine Narrative Performed At [facility] DRUGCUTOFF CONC. Cocaine 300 ng/mL Qfdigujnkgp31 ng/mL Neldxuedmegtlg619 ng/mL Barbiturate 200 ng/mL Jdvwnanvizror73 ng/mL Zxaleu805 ng/mL Methadone 300 ng/mL Amphetamine/ 1000 ng/mL Methamphetamine Oxycodone 300 ng/mL This assay provides an unconfirmed qualitative test result for the clinical management of patients in emergency situations. Chain of custody not maintained. Some qxvz-oel-fwgqtdw medications, as well as adulterants, may cause inaccurate results. Clinical correlation should be applied. A more comprehensive drug screen or confirmation of a detected drug may be performed upon request. Performing Organization Address City/[facility] Phone Number [address] [address] [place] Blood gas, venous (02/10/2018 2:00 AM CDT) pH, Ortiz 7.42 7.32 - 7.42 [facility] pCO2, Ortiz 28 (L) 41 - 51 mmHg [facility] pO2, Ortiz 34 25 - 40 mmHg [facility] O2 Sat, Ortiz 67.6 40.0 - 70.0 % [facility] HCO3, Ortiz 17 (L) 21 - 29 mmol/L [facility] Base Excess, Ortiz -6.2 (L) -2.0 - 3.0 mmol/L [facility] Patient Temperature 37.0 C [facility] Specimen Blood Performing Organization Address City/[facility]/Zipcode Phone Number [address] [address] CENTER Troponin I (02/10/2018 1:54 AM CDT) Troponin I <0.01 0.00 - 0.03 ng/mL [facility] Specimen Blood Narrative Performed At [facility] Troponin I (TnI) levels must be [...] disease, and persistent tachyarrhythmia. Performing Organization Address City/[facility] Phone Number [address] [address] CENTER Fibrinogen (02/10/2018 1:54 AM CDT) Fibrinogen 372 225 - 434 mg/dl [facility] Specimen Blood Performing Organization Address [facility] Phone Number [address] [address] [place] Creatine Kinase (CK), Total and MB (02/10/2018 1:54 AM CDT) Total CK 30 29 - 200 U/L [facility] CK-MB 0.4 0.0 - 6.6 ng/mL [facility] MB Relative Index 1.3 % [facility] Specimen Blood Narrative Performed At CK-MB Reference Range: [facility] <6.7Normal 6.7-10.0Borderline >10.0 Abnormal Performing Organization Address [facility] Phone Number [address] [address] [phone] CENTER Ethanol (02/10/2018 1:54 AM CDT) Ethanol Lvl <10 <=10 mg/dL [facility] Specimen Blood Performing Organization Address [facility] Phone Number [address] [address] [phone] CENTER after 01/28/2018 Insurance Payer Benefit Plan / Group Subscriber ID Type Phone Address GARCIA MEDICAID MEDICAID GARCIA xxxxxxxxx Advance Directives For more information, please contact:[address] [phone] Code Status Date Activated Date Inactivated Comments Full Code 05/23/2018 8:59 PM 05/27/2018 7:11 PM This code status was determined by: Patient Full Code 02/10/2018 2:37 AM 02/15/2018 7:08 PM This code status was determined by: Patient
--- OUTSIDE RECORDS SUMMARY | 2019-01-29 16:37 | XMS REPORT ---
:1970 [facility] Address [address] [place] [address] Care Team Providers Name Role Phone KENYA CHANTE PETERSON Unavailable Unavailable CLEVE ALCOCER Unavailable Unavailable NICK MCKENZIE Unavailable Unavailable RAMON ARIAS Unavailable Unavailable Problems This patient has no known problems. Allergies, Adverse Reactions, Alerts This patient has no known allergies or adverse reactions. Medications This patient has no known medications. Results Test Description Test Time Test Comments Text Results Atomic Results Result Comments BASIC METABOLIC PANEL 2018-12-08 05:46:00 Test Item Value Reference Range Comments SODIUM (BEAKER) (test 133 meq/L 136-145 kaki=363) POTASSIUM (BEAKER) (test 3.0 meq/L 3.5-5.1 fwgy=009) CHLORIDE (BEAKER) (test 107 meq/L 98-107 zduc=652) CO2 (BEAKER) (test tmjh=521) 18 meq/L 22-29 BLOOD UREA NITROGEN (BEAKER) 15 mg/dL 7-21 (test muwl=735) CREATININE (BEAKER) (test 0.93 mg/dL 0.57-1.25 hlop=835) GLUCOSE RANDOM (BEAKER) 94 mg/dL 70-105 (test nyyn=595) CALCIUM (BEAKER) (test 8.1 mg/dL 8.4-10.2 oloy=458) EGFR (BEAKER) (test 64 mL/min/1.73 sq m ESTIMATED GFR IS NOT djvg=9182) ACCURATE CREATININE CLEARANCE IN PREDICTING GLOMERULAR FILTRATION RATE. ESTIMATED GFR IS NOT APPLICABLE FOR DIALYSIS PATIENTS. CBC W/PLT COUNT & AUTO [id number] 05:30:00 Test Item Value Reference Range Comments WHITE BLOOD CELL COUNT (BEAKER) (test htds=113) 4.3 K/ L 3.5-10.5 RED BLOOD CELL COUNT (BEAKER) (test wlkx=845) 2.91 M/ L 3.93-5.22 HEMOGLOBIN (BEAKER) (test xpyl=196) 8.1 GM/DL 11.2-15.7 HEMATOCRIT (BEAKER) (test ghfj=022) 25.6 % 34.1-44.9 MEAN CORPUSCULAR VOLUME (BEAKER) (test jrkm=570) 88.0 fL 79.4-94.8 MEAN CORPUSCULAR HEMOGLOBIN (BEAKER) (test 27.8 pg 25.6-32.2 rcxg=126) MEAN CORPUSCULAR HEMOGLOBIN CONC (BEAKER) (test 31.6 GM/DL 32.2-35.5 pidb=785) RED CELL DISTRIBUTION WIDTH (BEAKER) (test 16.3 % 11.7-14.4 wish=574) PLATELET COUNT (BEAKER) (test qott=706) 129 K/CU MM 150-450 MEAN PLATELET VOLUME (BEAKER) (test frjq=362) 11.5 fL 9.4-12.3 NUCLEATED RED BLOOD CELLS (BEAKER) (test 0 /100 WBC 0-0 gfzo=367) NEUTROPHILS RELATIVE PERCENT (BEAKER) (test 71 % xsfx=715) LYMPHOCYTES RELATIVE PERCENT (BEAKER) (test 6 % ohxn=970) MONOCYTES RELATIVE PERCENT (BEAKER) (test 14 % syxf=452) EOSINOPHILS RELATIVE PERCENT (BEAKER) (test 7 % gcwh=290) BASOPHILS RELATIVE PERCENT (BEAKER) (test 1 % xfsw=162) NEUTROPHILS ABSOLUTE COUNT (BEAKER) (test 3.07 K/ L 1.56-6.13 kjqb=742) LYMPHOCYTES ABSOLUTE COUNT (BEAKER) (test 0.27 K/ L 1.18-3.74 llwz=509) MONOCYTES ABSOLUTE COUNT (BEAKER) (test 0.60 K/ L 0.24-0.36 lhed=499) EOSINOPHILS ABSOLUTE COUNT (BEAKER) (test 0.29 K/ L 0.04-0.36 gtqt=035) BASOPHILS ABSOLUTE COUNT (BEAKER) (test 0.06 K/ L 0.01-0.08 rkfp=193) IMMATURE GRANULOCYTES-RELATIVE PERCENT (BEAKER) 0 % 0-1 (test brgy=1891) BASIC METABOLIC [id number] 07:48:00 Test Item Value Reference Range Comments SODIUM (BEAKER) (test 134 meq/L 136-145 asgp=101) POTASSIUM (BEAKER) (test 3.7 meq/L 3.5-5.1 Specimen slightly uait=345) hemolyzed CHLORIDE (BEAKER) (test 107 meq/L 98-107 yxdm=330) CO2 (BEAKER) (test 17 meq/L 22-29 tund=018) BLOOD UREA NITROGEN 15 mg/dL 7-21 (BEAKER) (test zcen=777) CREATININE (BEAKER) (test 0.84 mg/dL 0.57-1.25 Specimen slightly mvti=812) hemolyzed GLUCOSE RANDOM (BEAKER) 88 mg/dL 70-105 (test zvqg=806) CALCIUM (BEAKER) (test 8.1 mg/dL 8.4-10.2 wtjm=305) EGFR (BEAKER) (test 72 mL/min/1.73 sq m ESTIMATED GFR IS NOT scje=8656) ACCURATE CREATININE CLEARANCE IN PREDICTING GLOMERULAR FILTRATION RATE. ESTIMATED GFR IS NOT APPLICABLE FOR DIALYSIS PATIENTS. CBC W/PLT COUNT & AUTO [id number] 07:40:00 Test Item Value Reference Range Comments WHITE BLOOD CELL COUNT (BEAKER) (test lqoe=822) 4.3 K/ L 3.5-10.5 RED BLOOD CELL COUNT (BEAKER) (test rjxv=298) 2.96 M/ L 3.93-5.22 HEMOGLOBIN (BEAKER) (test gqrh=834) 8.2 GM/DL 11.2-15.7 HEMATOCRIT (BEAKER) (test ouvu=385) 26.4 % 34.1-44.9 MEAN CORPUSCULAR VOLUME (BEAKER) (test zrdu=017) 89.2 fL 79.4-94.8 MEAN CORPUSCULAR HEMOGLOBIN (BEAKER) (test 27.7 pg 25.6-32.2 ccji=738) MEAN CORPUSCULAR HEMOGLOBIN CONC (BEAKER) (test 31.1 GM/DL 32.2-35.5 cqcu=514) RED CELL DISTRIBUTION WIDTH (BEAKER) (test 15.9 % 11.7-14.4 ssaa=439) PLATELET COUNT (BEAKER) (test nzbb=246) 121 K/CU MM 150-450 MEAN PLATELET VOLUME (BEAKER) (test kuoe=735) 11.4 fL 9.4-12.3 NUCLEATED RED BLOOD CELLS (BEAKER) (test 0 /100 WBC 0-0 eoww=218) NEUTROPHILS RELATIVE PERCENT (BEAKER) (test 83 % kiiy=836) LYMPHOCYTES RELATIVE PERCENT (BEAKER) (test 4 % hvjs=923) MONOCYTES RELATIVE PERCENT (BEAKER) (test 7 % fvbv=203) EOSINOPHILS RELATIVE PERCENT (BEAKER) (test 4 % jssi=239) BASOPHILS RELATIVE PERCENT (BEAKER) (test 1 % vecf=823) NEUTROPHILS ABSOLUTE COUNT (BEAKER) (test 3.57 K/ L 1.56-6.13 yftu=294) LYMPHOCYTES ABSOLUTE COUNT (BEAKER) (test 0.18 K/ L 1.18-3.74 zicf=447) MONOCYTES ABSOLUTE COUNT (BEAKER) (test 0.31 K/ L 0.24-0.36 ckeo=263) EOSINOPHILS ABSOLUTE COUNT (BEAKER) (test 0.17 K/ L 0.04-0.36 gwzr=198) BASOPHILS ABSOLUTE COUNT (BEAKER) (test 0.06 K/ L 0.01-0.08 hkxa=192) IMMATURE GRANULOCYTES-RELATIVE PERCENT (BEAKER) 1 % 0-1 (test cowu=3860) U/S, [id number] 17:49:00TherapeuticReason for exam:-> AscitesShould this be performed at the bedside?->NoFINAL REPORT Paracentesis dated 12/06/2018 Procedure: Ultrasound-guided paracentesis. Preprocedure diagnosis: Ascites Postprocedure diagnosis: Ascites Conscious sedation: None. Radiologist: Laure Jules M.D. Machine Repairer Maintenance: None Anesthesia: 1% Xylocaine mixed with sodium bicarbonate local anesthesia. Technique: After obtaining informed consent, ultrasound-guided paracentesis was performed under usual sterile technique. Using a 5 romanian drainage catheter , puncture was made in the right lower quadrant abdomen. Approximately 11,500 cc of serous fluid was removed. Patient tolerated theprocedure well without complication. Complication: None Graft/Implant: None Estimated Blood Loss: None Impression: Ultrasound-guided paracentesis. Signed: Laure Jules MDReport Verified Date/Time: 12/06/2018 17:49:10 Reading Location: [facility] [id number] Consult Reading Room 05: 49 [id number] 15:10:00 Test Item Value Reference Range Comments PARTIAL THROMBOPLASTIN TIME (BEAKER) (test 35.9 seconds 22.5-36.0 svnq=358) PROTHROMBIN [id number] 15:09:00 Test Item Value Reference Range Comments PROTIME (BEAKER) (test nenk=351) 16.7 seconds 11.7-14.7 INR (BEAKER) (test litf=275) 1.4 <=5.9 RECOMMENDED COUMADIN/WARFARIN INR THERAPY RANGESSTANDARD DOSE: 2.0 - 3.0 Includes: PROPHYLAXIS forvenous thrombosis, systemic embolization; TREATMENT for venous thrombosis and/or pulmonary embolus.HIGH RISK: Target INR is 2.5-3.5 for patients with mechanical heart valves.B-TYPE NATRIURETIC FACTOR (BNP)2018-12 13:18:00 Test Item Value Reference Range Comments B-TYPE NATRIURETIC PEPTIDE (BEAKER) (test ocyg=541) 45 pg/mL 0-100 COMPREHENSIVE METABOLIC [id number] 13:12:00 Test Item Value Reference Range Comments TOTAL PROTEIN (BEAKER) 6.6 gm/dL 6.0-8.3 (test flxa=380) ALBUMIN (BEAKER) (test 3.3 g/dL 3.5-5.0 aeib=2231) ALKALINE PHOSPHATASE 152 U/L 40-150 (BEAKER) (test piwv=297) BILIRUBIN TOTAL (BEAKER) 1.3 mg/dL 0.2-1.2 (test fxuj=629) SODIUM (BEAKER) (test 135 meq/L 136-145 wjui=745) POTASSIUM (BEAKER) (test 4.5 meq/L 3.5-5.1 pgkg=592) CHLORIDE (BEAKER) (test 112 meq/L 98-107 ruup=217) CO2 (BEAKER) (test 15 meq/L 22-29 fzmt=186) BLOOD UREA NITROGEN 11 mg/dL 7-21 (BEAKER) (test ycmd=907) CREATININE (BEAKER) (test 0.70 mg/dL 0.57-1.25 vxea=336) GLUCOSE RANDOM (BEAKER) 85 mg/dL 70-105 (test qyzk=984) CALCIUM (BEAKER) (test 8.3 mg/dL 8.4-10.2 udri=666) AST (SGOT) (BEAKER) (test 42 U/L 5-34 khfk=583) ALT (SGPT) (BEAKER) (test 18 U/L 6-55 vvyg=712) EGFR (BEAKER) (test 89 mL/min/1.73 sq m ESTIMATED GFR IS NOT mqdq=6357) ACCURATE CREATININE CLEARANCE IN PREDICTING GLOMERULAR FILTRATION RATE. ESTIMATED GFR IS NOT APPLICABLE FOR DIALYSIS PATIENTS. CBC W/PLT COUNT & AUTO [id number] 13:05:00 Test Item Value Reference Range Comments WHITE BLOOD CELL COUNT (BEAKER) (test csct=229) 3.9 K/ L 3.5-10.5 RED BLOOD CELL COUNT (BEAKER) (test feaa=288) 2.30 M/ L 3.93-5.22 HEMOGLOBIN (BEAKER) (test iovy=602) 6.2 GM/DL 11.2-15.7 HEMATOCRIT (BEAKER) (test mprt=335) 20.9 % 34.1-44.9 MEAN CORPUSCULAR VOLUME (BEAKER) (test gmqr=505) 90.9 fL 79.4-94.8 MEAN CORPUSCULAR HEMOGLOBIN (BEAKER) (test 27.0 pg 25.6-32.2 qdux=586) MEAN CORPUSCULAR HEMOGLOBIN CONC (BEAKER) (test 29.7 GM/DL 32.2-35.5 dkos=800) RED CELL DISTRIBUTION WIDTH (BEAKER) (test 17.0 % 11.7-14.4 vhzw=763) PLATELET COUNT (BEAKER) (test jasy=053) 136 K/CU MM 150-450 MEAN PLATELET VOLUME (BEAKER) (test hdci=841) 10.6 fL 9.4-12.3 NUCLEATED RED BLOOD CELLS (BEAKER) (test 0 /100 WBC 0-0 qxqy=195) NEUTROPHILS RELATIVE PERCENT (BEAKER) (test 75 % zddz=663) LYMPHOCYTES RELATIVE PERCENT (BEAKER) (test 7 % iqel=924) MONOCYTES RELATIVE PERCENT (BEAKER) (test 14 % hsie=817) EOSINOPHILS RELATIVE PERCENT (BEAKER) (test 2 % phum=809) BASOPHILS RELATIVE PERCENT (BEAKER) (test 1 % ktic=870) NEUTROPHILS ABSOLUTE COUNT (BEAKER) (test 2.90 K/ L 1.56-6.13 alhh=551) LYMPHOCYTES ABSOLUTE COUNT (BEAKER) (test 0.25 K/ L 1.18-3.74 ngwd=563) MONOCYTES ABSOLUTE COUNT (BEAKER) (test 0.54 K/ L 0.24-0.36 xqea=712) EOSINOPHILS ABSOLUTE COUNT (BEAKER) (test 0.09 K/ L 0.04-0.36 ayiz=017) BASOPHILS ABSOLUTE COUNT (BEAKER) (test 0.05 K/ L 0.01-0.08 juqw=813) IMMATURE GRANULOCYTES-RELATIVE PERCENT (BEAKER) 1 % 0-1 (test xrfr=5565) [id number] 13:02:00 Test Item Value Reference Range Comments AMMONIA (BEAKER) (test hdti=764) 62 mol/L 18-72 U/S, [id number] 08:43:00Reason for exam:->ascitesReason for exam: ->possible sbpShould this be performed at the bedside?->YesFINAL REPORT Ultrasound guided paracentesis, 05/23/2018. Clinical History:Ascites. Sedation: None. Paper Wrapping Machine Operator: Mckenzie. Machine Repairer Maintenance : None. Estimated Blood Loss: < 1 cc. Specimen: 6500 cc of clear yellow fluid, samples sent to laboratory. Technique: Informed consent was obtained. The risks of pain, bleeding, infection, bowel perforation, injury to adjacent structures, and adverse medication reactions were discussed with the patient. After informed consent was obtained, the patient's abdomen was scanned. The right lower quadrant of the abdomen wasselected for paracentesis. After the largest fluid pocket area was marked, and the anterior abdominal wall was evaluated with color Doppler to exclude presence of blood vessels traversing the area, the skin was prepped and draped in the usual sterile manner. After local anesthesia was achieved with 1% lidocaine, a 5 Faroese one-step catheter was advanced into the peritoneal cavity under ultrasound guidance. After completion of drainage, the catheter was removed. There was no evidence of complication. Patient Disposition: The patient was discharged from the ultrasound department after the paracentesis, in good condition. Impression: Successful ultrasound guided paracentesis. Signed: Pino Rincon Verified Date/Time: 06/02/2018 08:43:07 Reading Location: [facility] B1 P048 Angio Body Reading Room Electronically signed by: PINO RINCON M.D. on 2017 08:43 AMBODY FLUID CULTURE + GRAM [id number] 08:26:00 Test Item Value Reference Range Comments CULTURE (BEAKER) (test mdlz=8415) No growth GRAM STAIN RESULT (BEAKER) (test 2+ WBCs eotm=6290) GRAM STAIN RESULT (BEAKER) (test No organisms seen pfzw=55192) BLOOD [id number] 19:00:00 Test Item Value Reference Range Comments CULTURE (BEAKER) (test tnjg=7134) No growth in 5 days BLOOD [id number] 19:00:00 Test Item Value Reference Range Comments CULTURE (BEAKER) (test lwkk=4046) No growth in 5 days BODY FLUID CELL COUNT WITH [id number] 15:04:00 Test Item Value Reference Range Comments APPEARANCE FLUID (BEAKER) (test Hazy Clear flcl=783) COLOR FLUID (BEAKER) (test Straw Colorless, Straw otcg=912) RBC FLUID (BEAKER) (test 1220 /uL <=1 ooxm=697) ADJUSTED WBC FLUID (BEAKER) 193 /cu mm <=5 (test burx=1501) LINING CELLS (BEAKER) (test 14 /cu mm <=1 yanu=2204) NEUTROPHILS FLUID (BEAKER) 44 % (test yhwe=7510) LYMPHS FLUID (BEAKER) (test 26 % xout=106) MONO/MACROPHAGE FLUID (BEAKER) 30 % (test plra=217) EOSINOPHILS FLUID (BEAKER) 0 % (test cdgv=623) BASO FLUID (BEAKER) (test 0 % sykr=114) INTERPRETATION-210 (BEAKER) Negative for malignant (test gyrx=8543) cells. WHNK-JHCCJOTRHUU-019 (BEAKER) Stanislav Sofia M.D. (test mapo=2626) (electronic signature) CONTAINER BODY FLUID (BEAKER) Sterile Cup (test nofx=2674) BASIC METABOLIC [id number] 03:33:00 Test Item Value Reference Range Comments SODIUM (BEAKER) (test 134 meq/L 135-148 jyzk=386) POTASSIUM (BEAKER) (test 3.5 meq/L 3.5-5.5 sdnb=949) CHLORIDE (BEAKER) (test 107 meq/L 98-106 fvtx=529) CO2 (BEAKER) (test 15 meq/L 20-31 ehhr=775) BLOOD UREA NITROGEN 22 mg/dL 10-26 (BEAKER) (test lhed=419) CREATININE (BEAKER) (test 1.51 mg/dL 0.50-1.20 tnrb=807) GLUCOSE RANDOM (BEAKER) 105 mg/dL 70-110 (test tmuj=749) CALCIUM (BEAKER) (test 9.7 mg/dL 8.5-10.5 gwcy=480) EGFR (BEAKER) (test 37 mL/min/1.73 sq m ESTIMATED GFR IS NOT xfvs=4245) ACCURATE CREATININE CLEARANCE IN PREDICTING GLOMERULAR FILTRATION RATE. ESTIMATED GFR IS NOT APPLICABLE FOR DIALYSIS PATIENTS. Specimen slightly ictericU/S, [id number] 16:05:00Reason for exam:-& gt;ascites, please only remove about 3L, pt with ZUNILDA too, dont want to shift fluidbalanceFINAL REPORT Ultrasound guided paracentesis , 05/26/2018. Clinical History:Ascites. Sedation: None. Paper Wrapping Machine Operator: Vishnu Biggs MD Machine Repairer Maintenance: None. Estimated Blood Loss: < 1 [...] achieved with 1 % lidocaine, a 5 Faroese one-step catheter was advanced into the peritoneal cavity under ultrasound guidance. After completion of drainage, the catheter was removed. There was no evidence ofcomplication. Impression:Successful ultrasound guided paracentesis. Signed: Vishnu Biggs MDReport Verified Date/ Time: 05/26/2018 16:05:11 Reading Location: [facility] Radiology Reading Room COMPREHENSIVE METABOLIC [id number] 05:55:00 Test Item Value Reference Range Comments TOTAL PROTEIN (BEAKER) 7.5 gm/dL 6.0-8.5 (test sjxr=364) ALBUMIN (BEAKER) (test 3.9 g/dL 3.5-5.0 dvsq=0698) ALKALINE PHOSPHATASE 97 U/L 30-115 (BEAKER) (test qneo=829) BILIRUBIN TOTAL (BEAKER) 2.3 mg/dL 0.1-1.3 (test bthu=666) SODIUM (BEAKER) (test 134 meq/L 135-148 iauj=143) POTASSIUM (BEAKER) (test 3.7 meq/L 3.5-5.5 tole=818) CHLORIDE (BEAKER) (test 105 meq/L 98-106 cfib=113) CO2 (BEAKER) (test 16 meq/L 20-31 cvry=008) BLOOD UREA NITROGEN 25 mg/dL 10-26 (BEAKER) (test pppa=879) CREATININE (BEAKER) (test 1.74 mg/dL 0.50-1.20 zbhb=276) GLUCOSE RANDOM (BEAKER) 116 mg/dL 70-110 (test hydz=599) CALCIUM (BEAKER) (test 9.6 mg/dL 8.5-10.5 twbe=428) AST (SGOT) (BEAKER) (test 44 U/L 5-40 fspv=656) ALT (SGPT) (BEAKER) (test 23 U/L 6-50 sdqc=908) EGFR (BEAKER) (test 31 mL/min/1.73 sq m ESTIMATED GFR IS NOT bxlw=8958) ACCURATE CREATININE CLEARANCE IN PREDICTING GLOMERULAR FILTRATION RATE. ESTIMATED GFR IS NOT APPLICABLE FOR DIALYSIS PATIENTS. [id number] 05:51:00 Test Item Value Reference Range Comments POTASSIUM (BEAKER) (test ubly=386) 3.7 meq/L 3.5-5.5 [id number] 05:51:00 Test Item Value Reference Range Comments MAGNESIUM (BEAKER) (test wwel=527) 2.1 mg/dL 1.5-3.0 [id number] 05:31:00 Test Item Value Reference Range Comments AMMONIA (BEAKER) (test lqyo=162) 134 mol/L 12-72 URINE [id number] 12:48:00 Test Item Value Reference Range Comments CULTURE (BEAKER) (test urpy=8790) No growth BASIC METABOLIC [id number] 04:24:00 Test Item Value Reference Range Comments SODIUM (BEAKER) (test 131 meq/L 135-148 tquw=560) POTASSIUM (BEAKER) (test 3.5 meq/L 3.5-5.5 thbb=528) CHLORIDE (BEAKER) (test 103 meq/L 98-106 gpat=247) CO2 (BEAKER) (test 17 meq/L 20-31 wton=766) BLOOD UREA NITROGEN 27 mg/dL 10-26 (BEAKER) (test luqo=834) CREATININE (BEAKER) (test 2.29 mg/dL 0.50-1.20 unxl=859) GLUCOSE RANDOM (BEAKER) 93 mg/dL 70-110 (test dnox=882) CALCIUM (BEAKER) (test 9.2 mg/dL 8.5-10.5 swez=899) EGFR (BEAKER) (test 23 mL/min/1.73 sq m ESTIMATED GFR IS NOT yewb=3515) ACCURATE CREATININE CLEARANCE IN PREDICTING GLOMERULAR FILTRATION RATE. ESTIMATED GFR IS NOT APPLICABLE FOR DIALYSIS PATIENTS. CBC W/PLT COUNT & AUTO [id number] 03:55:00 Test Item Value Reference Range Comments WHITE BLOOD CELL COUNT (BEAKER) 4.5 K/ L 4.0-10.0 (test ynad=831) RED BLOOD CELL COUNT (BEAKER) 3.28 M/ L 4.00-5.00 (test uwzh=390) HEMOGLOBIN (BEAKER) (test 10.0 GM/DL 12.0-15.5 dtms=952) HEMATOCRIT (BEAKER) (test 29.9 % 36.0-46.0 iwqc=936) MEAN CORPUSCULAR VOLUME 91.2 fL 82.0-99.0 (BEAKER) (test ehzr=557) MEAN CORPUSCULAR HEMOGLOBIN 30.5 pg 27.0-33.0 (BEAKER) (test cgaw=426) MEAN CORPUSCULAR HEMOGLOBIN 33.4 GM/DL 32.0-36.0 CONC (BEAKER) (test zxjc=442) RED CELL DISTRIBUTION WIDTH 17.4 % 12.0-15.0 (BEAKER) (test izqq=735) PLATELET COUNT (BEAKER) (test 105 K/CU MM 150-430 sbge=790) MEAN PLATELET VOLUME (BEAKER) 10.5 fL 6.0-11.5 MPV-Approximately 20% (test jdev=341) positive bias due to method change. NUCLEATED RED BLOOD CELLS 0 /100 WBC 0-0 (BEAKER) (test lcpg=295) NEUTROPHILS RELATIVE PERCENT 71 % (BEAKER) (test qqcg=438) LYMPHOCYTES RELATIVE PERCENT 8 % (BEAKER) (test wotk=394) MONOCYTES RELATIVE PERCENT 13 % (BEAKER) (test zsgt=602) EOSINOPHILS RELATIVE PERCENT 6 % (BEAKER) (test lifn=199) BASOPHILS RELATIVE PERCENT 1 % (BEAKER) (test tbgw=090) NEUTROPHILS ABSOLUTE COUNT 3.22 K/ L 1.80-8.00 (BEAKER) (test ogds=098) LYMPHOCYTES ABSOLUTE COUNT 0.38 K/ L 1.48-4.50 (BEAKER) (test awop=127) MONOCYTES ABSOLUTE COUNT 0.57 K/ L 0.00-1.30 (BEAKER) (test venb=178) EOSINOPHILS ABSOLUTE COUNT 0.29 K/ L 0.00-0.50 (BEAKER) (test avbu=610) BASOPHILS ABSOLUTE COUNT 0.05 K/ L 0.00-0.20 (BEAKER) (test gnqv=833) IMMATURE GRANULOCYTES-RELATIVE 0 % 0-0 PERCENT (BEAKER) (test jowz=5982) HEPATITIS PANEL, [id number] 20:47:00 Test Item Value Reference Range Comments HEPATITIS A IGM ANTIBODY (BEAKER) (test Nonreactive Nonreactive yarv=237) HEPATITIS B CORE IGM ANTIBODY (BEAKER) (test Nonreactive Nonreactive xfdv=545) HEPATITIS C ANTIBODY (BEAKER) (test paxv=406) Nonreactive Nonreactive HEPATITIS B SURFACE ANTIGEN (2) (BEAKER) (test Nonreactive Nonreactive tubs=7429) ALPHA FETOPROTEIN (AFP), TUMOR [id number] 19:52:00 Test Item Value Reference Range Comments ALPHA-FETOPROTEIN (BEAKER) (test zizg=1561) 5.5 ng/mL <10.0 CREATININE, RANDOM [id number] 14:08:00 Test Item Value Reference Range Comments CREATININE URINE (BEAKER) (test knug=107) 42.7 mg/dL Reference Range: No NormalsSODIUM, RANDOM [id number] 14:08:00 Test Item Value Reference Range Comments SODIUM URINE (BEAKER) (test gmcn=696) 28 meq/L Reference Range: No NormalsOCCULT BLOOD, [id number] 13:56:00 Test Item Value Reference Range Comments FECAL OCCULT BLOOD (BEAKER) (test ptvc=286) Positive Negative U/S, RENAL, [id number] 11:53:00Reason for exam:->akiFINAL REPORT RENAL ULTRASOUND HISTORY: Acute kidney injury COMPARISON : Abdominal ultrasound 02/11/2018 TECHNIQUE: Real-time ultrasound of the kidneys was performed. FINDINGS: Thekidneys are normal in size. The right kidney measures 11.6 cm in length and the left kidney ixihqpyh93.1 cm in length. Renal cortical thickness measures [...] MDReport Verified Date/Time: 05/24/2018 11:53:08 Reading Location: [address] Reading Room BASIC METABOLIC [id number] 05:13:00 Test Item Value Reference Range Comments SODIUM (BEAKER) (test 131 meq/L 135-148 kxun=715) POTASSIUM (BEAKER) (test 2.8 meq/L 3.5-5.5 sjks=100) CHLORIDE (BEAKER) (test 101 meq/L 98-106 bynx=612) CO2 (BEAKER) (test 17 meq/L 20-31 ssif=527) BLOOD UREA NITROGEN 28 mg/dL 10-26 (BEAKER) (test fakb=772) CREATININE (BEAKER) (test 2.85 mg/dL 0.50-1.20 petp=211) GLUCOSE RANDOM (BEAKER) 91 mg/dL 70-110 (test bugo=494) CALCIUM (BEAKER) (test 9.0 mg/dL 8.5-10.5 jrhn=223) EGFR (BEAKER) (test 18 mL/min/1.73 sq m ESTIMATED GFR IS NOT eust=0613) ACCURATE CREATININE CLEARANCE IN PREDICTING GLOMERULAR FILTRATION RATE. ESTIMATED GFR IS NOT APPLICABLE FOR DIALYSIS PATIENTS. CBC W/PLT COUNT & AUTO [id number] 04:39:00 Test Item Value Reference Range Comments WHITE BLOOD CELL COUNT (BEAKER) 5.4 K/ L 4.0-10.0 (test dxce=029) RED BLOOD CELL COUNT (BEAKER) 2.26 M/ L 4.00-5.00 (test nqwm=461) HEMOGLOBIN (BEAKER) (test 7.2 GM/DL 12.0-15.5 niku=999) HEMATOCRIT (BEAKER) (test 21.3 % 36.0-46.0 edyk=718) MEAN CORPUSCULAR VOLUME 94.2 fL 82.0-99.0 (BEAKER) (test rfgx=001) MEAN CORPUSCULAR HEMOGLOBIN 31.9 pg 27.0-33.0 (BEAKER) (test cmlh=614) MEAN CORPUSCULAR HEMOGLOBIN 33.8 GM/DL 32.0-36.0 CONC (BEAKER) (test ccwv=200) RED CELL DISTRIBUTION WIDTH 17.1 % 12.0-15.0 (BEAKER) (test imkf=534) PLATELET COUNT (BEAKER) (test 98 K/CU MM 150-430 bcvm=656) MEAN PLATELET VOLUME (BEAKER) 10.4 fL 6.0-11.5 MPV-Approximately 20% (test czua=363) positive bias due to method change. NUCLEATED RED BLOOD CELLS 0 /100 WBC 0-0 (BEAKER) (test caps=955) NEUTROPHILS RELATIVE PERCENT 77 % (BEAKER) (test dwdh=710) LYMPHOCYTES RELATIVE PERCENT 7 % (BEAKER) (test weub=342) MONOCYTES RELATIVE PERCENT 10 % (BEAKER) (test wccz=441) EOSINOPHILS RELATIVE PERCENT 5 % (BEAKER) (test igmo=344) BASOPHILS RELATIVE PERCENT 1 % (BEAKER) (test ufcs=606) NEUTROPHILS ABSOLUTE COUNT 4.15 K/ L 1.80-8.00 (BEAKER) (test hsbj=505) LYMPHOCYTES ABSOLUTE COUNT 0.35 K/ L 1.48-4.50 (BEAKER) (test aysg=794) MONOCYTES ABSOLUTE COUNT 0.55 K/ L 0.00-1.30 (BEAKER) (test hhhq=684) EOSINOPHILS ABSOLUTE COUNT 0.27 K/ L 0.00-0.50 (BEAKER) (test uajn=377) BASOPHILS ABSOLUTE COUNT 0.04 K/ L 0.00-0.20 (BEAKER) (test fbfk=110) IMMATURE GRANULOCYTES-RELATIVE 0 % 0-0 PERCENT (BEAKER) (test nvqb=7856) BASIC METABOLIC [id number] 19:11:00 Test Item Value Reference Range Comments SODIUM (BEAKER) (test 130 meq/L 135-148 ughm=030) POTASSIUM (BEAKER) (test 3.8 meq/L 3.5-5.5 Specimen slightly zyro=232) hemolyzed CHLORIDE (BEAKER) (test 100 meq/L 98-106 wqrt=890) CO2 (BEAKER) (test 17 meq/L 20-31 mfye=858) BLOOD UREA NITROGEN 27 mg/dL 10-26 (BEAKER) (test mdpg=768) CREATININE (BEAKER) (test 2.86 mg/dL 0.50-1.20 Specimen slightly esxl=324) hemolyzed GLUCOSE RANDOM (BEAKER) 97 mg/dL 70-110 (test evij=232) CALCIUM (BEAKER) (test 8.8 mg/dL 8.5-10.5 dtnj=691) EGFR (BEAKER) (test 18 mL/min/1.73 sq m ESTIMATED GFR IS NOT jwdw=2871) ACCURATE CREATININE CLEARANCE IN PREDICTING GLOMERULAR FILTRATION RATE. ESTIMATED GFR IS NOT APPLICABLE FOR DIALYSIS PATIENTS. CT, BRAIN, WITHOUT [id number] 17:56:00Reason for exam:->ALTERED MENTAL STATUSReason for exam:->BLOATEDReason [...] Silver Verified Date/Time: 05/23/2018 17:56:33 Reading Location: [facility] Radiology Reading Room COMPREHENSIVE METABOLIC [id number] 16:54:00 Test Item Value Reference Range Comments TOTAL PROTEIN (BEAKER) 7.2 gm/dL 6.0-8.5 Specimen slightly (test tjqo=039) hemolyzed ALBUMIN (BEAKER) (test 3.5 g/dL 3.5-5.0 Specimen slightly wjvr=6723) hemolyzed ALKALINE PHOSPHATASE 122 U/L 30-115 (BEAKER) (test camv=024) BILIRUBIN TOTAL (BEAKER) 1.5 mg/dL 0.1-1.3 Specimen slightly (test puvq=238) hemolyzed SODIUM (BEAKER) (test 131 meq/L 135-148 gcgl=959) POTASSIUM (BEAKER) (test 2.9 meq/L 3.5-5.5 Specimen slightly przr=021) hemolyzed CHLORIDE (BEAKER) (test 101 meq/L 98-106 labn=004) CO2 (BEAKER) (test 16 meq/L 20-31 jmjp=193) BLOOD UREA NITROGEN 27 mg/dL 10-26 (BEAKER) (test dhpw=602) CREATININE (BEAKER) (test 2.98 mg/dL 0.50-1.20 Specimen slightly hvzw=254) hemolyzed GLUCOSE RANDOM (BEAKER) 99 mg/dL 70-110 (test nugi=011) CALCIUM (BEAKER) (test 8.9 mg/dL 8.5-10.5 lene=256) AST (SGOT) (BEAKER) (test 53 U/L 5-40 Specimen slightly rvii=404) hemolyzed ALT (SGPT) (BEAKER) (test 23 U/L 6-50 Specimen slightly xofq=177) hemolyzed EGFR (BEAKER) (test 17 mL/min/1.73 sq m ESTIMATED GFR IS NOT akrb=7850) ACCURATE CREATININE CLEARANCE IN PREDICTING GLOMERULAR FILTRATION RATE. ESTIMATED GFR IS NOT APPLICABLE FOR DIALYSIS PATIENTS. [id number] 16:38:00 Test Item Value Reference Range Comments LIPASE (BEAKER) (test xweb=601) 82 U/L 8-78 PROTHROMBIN [id number] 16:28:00 Test Item Value Reference Range Comments PROTIME (BEAKER) (test ktww=111) 16.1 seconds 11.8-14.4 INR (BEAKER) (test wuna=961) 1.3 1.2-1.5 RECOMMENDED COUMADIN/WARFARIN INR THERAPY RANGESSTANDARD DOSE: 2.0 - 3.0 Includes: PROPHYLAXIS forvenous thrombosis, systemic embolization; TREATMENT for venous thrombosis and/or pulmonary embolus.HIGH RISK: Target INR is 2.5-3.5 for patients with mechanical heart valves.CBC W/PLT COUNT & AUTO [id number] 16:26:00 Test Item Value Reference Range Comments WHITE BLOOD CELL COUNT (BEAKER) 7.1 K/ L 4.0-10.0 (test zdjs=891) RED BLOOD CELL COUNT (BEAKER) 2.50 M/ L 4.00-5.00 (test jhcp=185) HEMOGLOBIN (BEAKER) (test 8.0 GM/DL 12.0-15.5 eqep=418) HEMATOCRIT (BEAKER) (test 24.1 % 36.0-46.0 bmye=279) MEAN CORPUSCULAR VOLUME 96.4 fL 82.0-99.0 (BEAKER) (test ajos=019) MEAN CORPUSCULAR HEMOGLOBIN 32.0 pg 27.0-33.0 (BEAKER) (test cdmf=978) MEAN CORPUSCULAR HEMOGLOBIN 33.2 GM/DL 32.0-36.0 CONC (BEAKER) (test nsea=465) RED CELL DISTRIBUTION WIDTH 17.3 % 12.0-15.0 (BEAKER) (test jdee=903) PLATELET COUNT (BEAKER) (test 115 K/CU MM 150-430 efbu=185) MEAN PLATELET VOLUME (BEAKER) 11.3 fL 6.0-11.5 MPV-Approximately 20% (test gfws=856) positive bias due to method change. NUCLEATED RED BLOOD CELLS 0 /100 WBC 0-0 (BEAKER) (test tynm=696) NEUTROPHILS RELATIVE PERCENT 90 % (BEAKER) (test iecv=405) LYMPHOCYTES RELATIVE PERCENT 4 % (BEAKER) (test sqxi=009) MONOCYTES RELATIVE PERCENT 4 % (BEAKER) (test zgdy=130) EOSINOPHILS RELATIVE PERCENT 1 % (BEAKER) (test smlq=901) BASOPHILS RELATIVE PERCENT 1 % (BEAKER) (test cepm=058) NEUTROPHILS ABSOLUTE COUNT 6.34 K/ L 1.80-8.00 (BEAKER) (test bzsu=331) LYMPHOCYTES ABSOLUTE COUNT 0.25 K/ L 1.48-4.50 (BEAKER) (test htze=695) MONOCYTES ABSOLUTE COUNT 0.30 K/ L 0.00-1.30 (BEAKER) (test ggrk=753) EOSINOPHILS ABSOLUTE COUNT 0.10 K/ L 0.00-0.50 (BEAKER) (test zzdb=769) BASOPHILS ABSOLUTE COUNT 0.04 K/ L 0.00-0.20 (BEAKER) (test okio=487) IMMATURE GRANULOCYTES-RELATIVE 0 % 0-0 PERCENT (BEAKER) (test ctxw=8718) RAD, CHEST, 1 VIEW, NON [id number] 16:22:00Reason for exam:->altered mental statusShould this be performed at the bedside?->YesIs the patient ?->NoFINAL REPORT CHEST AP PORTABLE History provided: Altered mental status Heart size normal. Lungs clear and vascularity normal. IMPRESSION: Clear chest. Signed: Gonzalo Serranoeport Verified Date/ Time: 05/23/2018 16:22:47 Reading Location: [facility] Radiology Reading Room URINALYSIS W/ [id number] 16:19:00 Test Item Value Reference Range Comments COLOR (BEAKER) (test hjbn=120) Yellow CLARITY (BEAKER) (test sjcg=706) Hazy SPECIFIC GRAVITY UA (BEAKER) (test dqfe=485) 1.016 1.001-1.035 PH UA (BEAKER) (test dugn=902) 5.0 5.0-8.0 PROTEIN UA (BEAKER) (test ikbe=132) Negative Negative GLUCOSE UA (BEAKER) (test neuz=023) Negative Negative KETONES UA (BEAKER) (test rnec=774) Negative Negative BILIRUBIN UA (BEAKER) (test slzr=381) Negative Negative BLOOD UA (BEAKER) (test pscv=502) Negative Negative NITRITE UA (BEAKER) (test mjph=429) Negative Negative LEUKOCYTE ESTERASE UA (BEAKER) (test prpn=759) Negative Negative UROBILINOGEN UA (BEAKER) (test zixa=318) < mg/dL 0.2-1.0 RBC UA (BEAKER) (test dkal=939) 1 /HPF WBC UA (BEAKER) (test fczw=874) 1 /HPF BACTERIA (BEAKER) (test krpt=627) Rare MUCUS (BEAKER) (test xxut=9567) Rare SQUAMOUS EPITHELIAL (BEAKER) (test llpu=351) < /HPF HYALINE CASTS (BEAKER) (test fjyv=996) 4 /LPF SOURCE(BEAKER) (test mjau=1917) LACTIC ACID, VENOUS, WHOLE [id number] 16:12:00 Test Item Value Reference Range Comments LACTATE BLOOD VENOUS (2) 2.0 mmol/L 0.5-2.2 Specimen moderately hemolyzed (BEAKER) (test gsrn=0196) Effective 12/07/2015: Units/Reference Range ChangeNew: 0.5-2.2 mmol/L Previous: 5 -20 mg/[id number] 16:07:00 Test Item Value Reference Range Comments AMMONIA (BEAKER) (test 90 mol/L 12-72 Specimen moderately hemolyzed eoys=619) AFB CULTURE + [id number] 00:02:00 Test Item Value Reference Range Comments CULTURE (BEAKER) (test No acid-fast bacilli isolated saey=0249) in 42 days AFB SMEAR (BEAKER) (test No acid fast bacilli seen tijw=145) FUNGUS CULTURE + [id number] 12:57:00 Test Item Value Reference Range Comments CULTURE (BEAKER) (test No fungus isolated in 28 days ripp=3676) FUNGUS SMEAR (BEAKER) (test No fungi seen fucg=3999) BODY FLUID CULTURE + GRAM [id number] 05:31:00 Test Item Value Reference Range Comments CULTURE (BEAKER) (test cpfn=2373) No growth GRAM STAIN RESULT (BEAKER) (test <1+ WBCs urdh=6014) GRAM STAIN RESULT (BEAKER) (test No organisms seen jxpf=02639) ANAEROBIC [id number] 02:42:00 Test Item Value Reference Range Comments CULTURE (BEAKER) (test usiu=3895) No anaerobes isolated POCT-GLUCOSE [id number] 13:58:00 Test Item Value Reference Range Comments POC-GLUCOSE METER (BEAKER) 119 mg/dL 70-110 TESTED AT [facility] [address] [facility] (test gzoz=5278) [facility] [address] CBC W/PLT COUNT & AUTO [id number] 09:22:00 Test Item Value Reference Range Comments WHITE BLOOD CELL COUNT (BEAKER) (test ktah=118) 5.1 K/ L 3.5-10.5 RED BLOOD CELL COUNT (BEAKER) (test okml=000) 2.79 M/ L 3.93-5.22 HEMOGLOBIN (BEAKER) (test vytu=265) 8.8 GM/DL 11.2-15.7 HEMATOCRIT (BEAKER) (test kiqa=928) 27.2 % 34.1-44.9 MEAN CORPUSCULAR VOLUME (BEAKER) (test qddp=001) 97.5 fL 79.4-94.8 MEAN CORPUSCULAR HEMOGLOBIN (BEAKER) (test 31.5 pg 25.6-32.2 eisi=948) MEAN CORPUSCULAR HEMOGLOBIN CONC (BEAKER) (test 32.4 GM/DL 32.2-35.5 chsx=737) RED CELL DISTRIBUTION WIDTH (BEAKER) (test 18.8 % 11.7-14.4 hknj=660) PLATELET COUNT (BEAKER) (test dbqi=883) 86 K/CU MM 150-450 MEAN PLATELET VOLUME (BEAKER) (test lfbr=516) 12.6 fL 9.4-12.3 NUCLEATED RED BLOOD CELLS (BEAKER) (test 0 /100 WBC 0-0 vklv=615) NEUTROPHILS RELATIVE PERCENT (BEAKER) (test 73 % uahx=353) LYMPHOCYTES RELATIVE PERCENT (BEAKER) (test 7 % vdaj=679) MONOCYTES RELATIVE PERCENT (BEAKER) (test 12 % ckun=877) EOSINOPHILS RELATIVE PERCENT (BEAKER) (test 6 % pxum=164) BASOPHILS RELATIVE PERCENT (BEAKER) (test 1 % kpwj=670) NEUTROPHILS ABSOLUTE COUNT (BEAKER) (test 3.63 K/ L 1.56-6.13 nzpn=120) LYMPHOCYTES ABSOLUTE COUNT (BEAKER) (test 0.36 K/ L 1.18-3.74 ytvs=261) MONOCYTES ABSOLUTE COUNT (BEAKER) (test qwba=205) 0.61 K/ L 0.24-0.36 EOSINOPHILS ABSOLUTE COUNT (BEAKER) (test 0.31 K/ L 0.04-0.36 zjkk=266) BASOPHILS ABSOLUTE COUNT (BEAKER) (test eftc=849) 0.06 K/ L 0.01-0.08 IMMATURE GRANULOCYTES-RELATIVE PERCENT (BEAKER) 0 % 0-1 (test zsid=9336) CBC (HEMOGRAM ONLY)2018-02-15 09:16:00 Test Item Value Reference Range Comments WHITE BLOOD CELL COUNT (BEAKER) (test rvgj=867) 5.1 K/ L 3.5-10.5 RED BLOOD CELL COUNT (BEAKER) (test uexd=438) 2.79 M/ L 3.93-5.22 HEMOGLOBIN (BEAKER) (test mgfg=623) 8.8 GM/DL 11.2-15.7 HEMATOCRIT (BEAKER) (test psnj=841) 27.2 % 34.1-44.9 MEAN CORPUSCULAR VOLUME (BEAKER) (test xrty=483) 97.5 fL 79.4-94.8 MEAN CORPUSCULAR HEMOGLOBIN (BEAKER) (test 31.5 pg 25.6-32.2 udsp=687) MEAN CORPUSCULAR HEMOGLOBIN CONC (BEAKER) (test 32.4 GM/DL 32.2-35.5 ivvk=626) RED CELL DISTRIBUTION WIDTH (BEAKER) (test 18.8 % 11.7-14.4 yzmj=472) PLATELET COUNT (BEAKER) (test cihy=648) 86 K/CU MM 150-450 MEAN PLATELET VOLUME (BEAKER) (test diis=384) 12.6 fL 9.4-12.3 NUCLEATED RED BLOOD CELLS (BEAKER) (test 0 /100 WBC 0-0 uiav=234) POCT-GLUCOSE [id number] 08:54:00 Test Item Value Reference Range Comments POC-GLUCOSE METER (BEAKER) 135 mg/dL 70-110 TESTED AT [facility] [address] [facility] (test lhbz=9424) [facility] [address] [id number] 06:41:00 Test Item Value Reference Range Comments PHOSPHORUS (BEAKER) (test vgnm=364) 3.5 mg/dL 2.3-4.7 [id number] 06:41:00 Test Item Value Reference Range Comments MAGNESIUM (BEAKER) (test mwcq=238) 1.7 mg/dL 1.6-2.6 BASIC METABOLIC [id number] 06:41:00 Test Item Value Reference Range Comments SODIUM (BEAKER) (test 136 meq/L 136-145 bhig=742) POTASSIUM (BEAKER) (test 3.2 meq/L 3.5-5.1 tdvw=897) CHLORIDE (BEAKER) (test 112 meq/L 98-107 slfm=063) CO2 (BEAKER) (test 14 meq/L 22-29 duee=955) BLOOD UREA NITROGEN 14 mg/dL 7-21 (BEAKER) (test uuua=908) CREATININE (BEAKER) (test 0.71 mg/dL 0.57-1.25 cdsf=178) GLUCOSE RANDOM (BEAKER) 92 mg/dL 70-105 (test vjnx=448) CALCIUM (BEAKER) (test 8.9 mg/dL 8.4-10.2 mgoc=792) EGFR (BEAKER) (test 88 mL/min/1.73 sq m ESTIMATED GFR IS NOT zcbx=8160) ACCURATE CREATININE CLEARANCE IN PREDICTING GLOMERULAR FILTRATION RATE. ESTIMATED GFR IS NOT APPLICABLE FOR DIALYSIS PATIENTS. HEPATIC FUNCTION [id number] 06:41:00 Test Item Value Reference Range Comments TOTAL PROTEIN (BEAKER) (test wqbi=668) 6.3 gm/dL 6.0-8.3 ALBUMIN (BEAKER) (test wfaq=3924) 3.9 g/dL 3.5-5.0 BILIRUBIN TOTAL (BEAKER) (test uxru=127) 1.7 mg/dL 0.2-1.2 BILIRUBIN DIRECT (BEAKER) (test znis=910) 1.0 mg/dL 0.1-0.5 ALKALINE PHOSPHATASE (BEAKER) (test bnqg=032) 126 U/L 40-150 AST (SGOT) (BEAKER) (test xenl=997) 118 U/L 5-34 ALT (SGPT) (BEAKER) (test bwwv=007) 56 U/L 6-55 BLOOD [id number] 06:00:00 Test Item Value Reference Range Comments CULTURE (BEAKER) (test oqlv=1201) No growth in 5 days BLOOD [id number] 06:00:00 Test Item Value Reference Range Comments CULTURE (BEAKER) (test jtuv=5848) No growth in 5 days POCT-GLUCOSE [id number] 21:33:00 Test Item Value Reference Range Comments POC-GLUCOSE METER (BEAKER) 126 mg/dL 70-110 TESTED AT [facility] [address] [facility] (test tkut=9902) [facility] [address] BODY FLUID CELL COUNT WITH [id number] 20:39:00 Test Item Value Reference Range Comments APPEARANCE FLUID (BEAKER) (test ojky=002) Bloody Clear COLOR FLUID (BEAKER) (test envl=807) Red Colorless, Straw RBC FLUID (BEAKER) (test zokf=757) [address] /cu mm <=1 ADJUSTED WBC FLUID (BEAKER) (test epwq=0270) 206 /cu mm <=5 LINING CELLS (BEAKER) (test fseh=4529) 4 /cu mm <=1 NEUTROPHILS FLUID (BEAKER) (test ezqi=9340) 50 % LYMPHS FLUID (BEAKER) (test vlwa=115) 5 % MONO/MACROPHAGE FLUID (BEAKER) (test fawq=153) 45 % EOSINOPHILS FLUID (BEAKER) (test xcrk=827) 0 % BASO FLUID (BEAKER) (test owwq=493) 0 % CONTAINER BODY FLUID (BEAKER) (test ipxq=9194) EDTA Tube TISSUE [id number] 18:33:00Surgical Pathology Report Case: [id number] Authorizing Provider: Tamera Mayorga MD Collected: 02/11/2018 7728 Ordering Location: [place] [address] ICU Received: 02/11/2018 1613 Pathologist: Herminia Hope MD Specimen: Hernia Sac, Umbilical SKIN AND HERNIA SAC, EXCISION:- SKIN WITH ULCER, NECROSIS, HERNIA WITH FIBROSIS, ADHESION AND CHRONIC INFLAMMATION Signing Pathologist Direct Phone Line: [phone] 13771Rdzytjzoqioe umbilical hernia Hernia sac umbilical The specimen is received in a formalin-filled container labeled with the patient's information and labeled "umbilical hernial sac" and consists of hemorrhagic membranous tissue measuring 6 x 3 x 0.2 cm with overlying brown skin measuring 5.5 x 3 x 0.3 cm, submitted in A1 and A2. There are no areas of suspicion. CG/ew PerformedPOCT-GLUCOSE [id number] 18:27:00 Test Item Value Reference Range Comments POC-GLUCOSE METER (BEAKER) 152 mg/dL 70-110 TESTED AT [facility] [address] [place] [address] (test fzke=4292) [facility] [address] U/S, [id number] 17:34:00Send fluid for cell ct \\T\\ diff, [...] MDReport Verified Date/Time: 02/14/2018 17:34:56 Reading Location: [facility] B1 [id number] Ultrasound Reading Room [id number] 15:56:00 Test Item Value Reference Range Comments PARTIAL THROMBOPLASTIN TIME (BEAKER) (test 28.9 seconds 22.5-36.0 znwo=782) PROTHROMBIN [id number] 15:55:00 Test Item Value Reference Range Comments PROTIME (BEAKER) (test wigg=825) 18.3 seconds 11.7-14.7 INR (BEAKER) (test wakc=329) 1.5 <=5.9 RECOMMENDED COUMADIN/WARFARIN INR THERAPY RANGESSTANDARD DOSE: 2.0 - 3.0 Includes: PROPHYLAXIS forvenous thrombosis, systemic embolization; TREATMENT for venous thrombosis and/or pulmonary embolus.HIGH RISK: Target INR is 2.5-3.5 for patients with mechanical heart valves.CBC W/PLT COUNT & AUTO [id number] 15:49:00 Test Item Value Reference Range Comments WHITE BLOOD CELL COUNT (BEAKER) (test fuas=994) 6.5 K/ L 3.5-10.5 RED BLOOD CELL COUNT (BEAKER) (test ejnp=296) 2.69 M/ L 3.93-5.22 HEMOGLOBIN (BEAKER) (test vuxq=796) 8.5 GM/DL 11.2-15.7 HEMATOCRIT (BEAKER) (test kmqj=378) 25.9 % 34.1-44.9 MEAN CORPUSCULAR VOLUME (BEAKER) (test ihds=961) 96.3 fL 79.4-94.8 MEAN CORPUSCULAR HEMOGLOBIN (BEAKER) (test 31.6 pg 25.6-32.2 vtxb=675) MEAN CORPUSCULAR HEMOGLOBIN CONC (BEAKER) (test 32.8 GM/DL 32.2-35.5 kftn=878) RED CELL DISTRIBUTION WIDTH (BEAKER) (test 19.0 % 11.7-14.4 bawq=765) PLATELET COUNT (BEAKER) (test vrur=735) 63 K/CU MM 150-450 MEAN PLATELET VOLUME (BEAKER) (test eixk=262) 11.6 fL 9.4-12.3 NUCLEATED RED BLOOD CELLS (BEAKER) (test 0 /100 WBC 0-0 micd=819) NEUTROPHILS RELATIVE PERCENT (BEAKER) (test 82 % dtpc=406) LYMPHOCYTES RELATIVE PERCENT (BEAKER) (test 4 % bvir=400) MONOCYTES RELATIVE PERCENT (BEAKER) (test 9 % bvcq=085) EOSINOPHILS RELATIVE PERCENT (BEAKER) (test 3 % epbj=289) BASOPHILS RELATIVE PERCENT (BEAKER) (test 1 % dvzb=623) NEUTROPHILS ABSOLUTE COUNT (BEAKER) (test 5.30 K/ L 1.56-6.13 bqlx=428) LYMPHOCYTES ABSOLUTE COUNT (BEAKER) (test 0.26 K/ L 1.18-3.74 cora=139) MONOCYTES ABSOLUTE COUNT (BEAKER) (test ekce=298) 0.59 K/ L 0.24-0.36 EOSINOPHILS ABSOLUTE COUNT (BEAKER) (test 0.20 K/ L 0.04-0.36 pmyk=487) BASOPHILS ABSOLUTE COUNT (BEAKER) (test yexv=743) 0.06 K/ L 0.01-0.08 IMMATURE GRANULOCYTES-RELATIVE PERCENT (BEAKER) 1 % 0-1 (test gnca=6724) POCT-GLUCOSE [id number] 13:10:00 Test Item Value Reference Range Comments POC-GLUCOSE METER (BEAKER) 138 mg/dL 70-110 TESTED AT [address] (test qfpn=0654) [facility] [address] SURGICALLY OBTAINED CULTURE + GRAM [id number] 11:29:00 Test Item Value Reference Range Comments CULTURE (BEAKER) (test rdzs=8259) No growth GRAM STAIN RESULT (BEAKER) (test <1+ WBCs mfky=7767) GRAM STAIN RESULT (BEAKER) (test No organisms seen xmdd=11854) CBC W/PLT COUNT & AUTO [id number] 09:31:00 Test Item Value Reference Range Comments WHITE BLOOD CELL COUNT (BEAKER) (test dgjn=939) 5.3 K/ L 3.5-10.5 RED BLOOD CELL COUNT (BEAKER) (test jbjw=207) 2.76 M/ L 3.93-5.22 HEMOGLOBIN (BEAKER) (test ukcy=778) 8.5 GM/DL 11.2-15.7 HEMATOCRIT (BEAKER) (test ffry=764) 26.7 % 34.1-44.9 MEAN CORPUSCULAR VOLUME (BEAKER) (test ffcu=588) 96.7 fL 79.4-94.8 MEAN CORPUSCULAR HEMOGLOBIN (BEAKER) (test 30.8 pg 25.6-32.2 ncth=476) MEAN CORPUSCULAR HEMOGLOBIN CONC (BEAKER) (test 31.8 GM/DL 32.2-35.5 vzoy=015) RED CELL DISTRIBUTION WIDTH (BEAKER) (test 19.1 % 11.7-14.4 lrex=989) PLATELET COUNT (BEAKER) (test hdqc=405) 82 K/CU MM 150-450 MEAN PLATELET VOLUME (BEAKER) (test qdww=051) 11.5 fL 9.4-12.3 NUCLEATED RED BLOOD CELLS (BEAKER) (test 0 /100 WBC 0-0 qodr=075) NEUTROPHILS RELATIVE PERCENT (BEAKER) (test 79 % jbvv=270) LYMPHOCYTES RELATIVE PERCENT (BEAKER) (test 6 % ggea=732) MONOCYTES RELATIVE PERCENT (BEAKER) (test 10 % otgr=811) EOSINOPHILS RELATIVE PERCENT (BEAKER) (test 3 % fjvp=095) BASOPHILS RELATIVE PERCENT (BEAKER) (test 1 % eudq=399) NEUTROPHILS ABSOLUTE COUNT (BEAKER) (test 4.21 K/ L 1.56-6.13 mdnt=279) LYMPHOCYTES ABSOLUTE COUNT (BEAKER) (test 0.33 K/ L 1.18-3.74 avmm=074) MONOCYTES ABSOLUTE COUNT (BEAKER) (test aerx=697) 0.55 K/ L 0.24-0.36 EOSINOPHILS ABSOLUTE COUNT (BEAKER) (test 0.17 K/ L 0.04-0.36 dnel=334) BASOPHILS ABSOLUTE COUNT (BEAKER) (test qabo=751) 0.05 K/ L 0.01-0.08 IMMATURE GRANULOCYTES-RELATIVE PERCENT (BEAKER) 1 % 0-1 (test bnzc=7741) POCT-GLUCOSE [id number] 08:00:00 Test Item Value Reference Range Comments POC-GLUCOSE METER (BEAKER) 100 mg/dL 70-110 TESTED AT [facility] [address] (test nnqt=5590) [facility] [address] [id number] 07:25:00 Test Item Value Reference Range Comments PHOSPHORUS (BEAKER) (test xidf=267) 3.0 mg/dL 2.3-4.7 [id number] 07:25:00 Test Item Value Reference Range Comments MAGNESIUM (BEAKER) (test lgef=822) 2.0 mg/dL 1.6-2.6 HEPATIC FUNCTION [id number] 07:25:00 Test Item Value Reference Range Comments TOTAL PROTEIN (BEAKER) (test gmuh=456) 6.5 gm/dL 6.0-8.3 ALBUMIN (BEAKER) (test tvun=5187) 4.2 g/dL 3.5-5.0 BILIRUBIN TOTAL (BEAKER) (test pxmt=930) 1.7 mg/dL 0.2-1.2 BILIRUBIN DIRECT (BEAKER) (test exjy=262) 1.1 mg/dL 0.1-0.5 ALKALINE PHOSPHATASE (BEAKER) (test nqfm=982) 140 U/L 40-150 AST (SGOT) (BEAKER) (test kvav=917) 182 U/L 5-34 ALT (SGPT) (BEAKER) (test tkak=044) 58 U/L 6-55 POCT-GLUCOSE [id number] 23:06:00 Test Item Value Reference Range Comments POC-GLUCOSE METER (BEAKER) 106 mg/dL 70-110 TESTED AT [address] (test tutu=9059) [facility] [address] POCT-GLUCOSE [id number] 17:34:00 Test Item Value Reference Range Comments POC-GLUCOSE METER (BEAKER) 149 mg/dL 70-110 TESTED AT [address] (test knin=2318) [facility] [address] POCT-GLUCOSE [id number] 11:39:00 Test Item Value Reference Range Comments POC-GLUCOSE METER (BEAKER) 117 mg/dL 70-110 TESTED AT [address] (test tove=9657) [facility] [address] POCT-GLUCOSE [id number] 08:13:00 Test Item Value Reference Range Comments POC-GLUCOSE METER (BEAKER) 126 mg/dL 70-110 TESTED AT [address] (test fmiz=3706) [facility] [address] [id number] 06:41:00 Test Item Value Reference Range Comments PHOSPHORUS (BEAKER) (test dhec=048) 2.1 mg/dL 2.3-4.7 [id number] 06:41:00 Test Item Value Reference Range Comments MAGNESIUM (BEAKER) (test kxpu=278) 2.1 mg/dL 1.6-2.6 HEPATIC FUNCTION [id number] 06:41:00 Test Item Value Reference Range Comments TOTAL PROTEIN (BEAKER) (test bmnh=894) 6.6 gm/dL 6.0-8.3 ALBUMIN (BEAKER) (test mymo=8871) 4.5 g/dL 3.5-5.0 BILIRUBIN TOTAL (BEAKER) (test soev=105) 1.0 mg/dL 0.2-1.2 BILIRUBIN DIRECT (BEAKER) (test rhds=921) 0.6 mg/dL 0.1-0.5 ALKALINE PHOSPHATASE (BEAKER) (test jgsx=178) 56 U/L 40-150 AST (SGOT) (BEAKER) (test mqii=990) 51 U/L 5-34 ALT (SGPT) (BEAKER) (test ixta=669) 17 U/L 6-55 COMPREHENSIVE METABOLIC [id number] 06:41:00 Test Item Value Reference Range Comments TOTAL PROTEIN (BEAKER) 6.6 gm/dL 6.0-8.3 (test ezuf=293) ALBUMIN (BEAKER) (test 4.5 g/dL 3.5-5.0 jtda=5812) ALKALINE PHOSPHATASE 56 U/L 40-150 (BEAKER) (test yvfy=747) BILIRUBIN TOTAL (BEAKER) 1.0 mg/dL 0.2-1.2 (test ooiw=415) SODIUM (BEAKER) (test 138 meq/L 136-145 xoas=972) POTASSIUM (BEAKER) (test 3.3 meq/L 3.5-5.1 rwvd=992) CHLORIDE (BEAKER) (test 114 meq/L 98-107 kadp=966) CO2 (BEAKER) (test 15 meq/L 22-29 tyqu=703) BLOOD UREA NITROGEN 15 mg/dL 7-21 (BEAKER) (test fxxv=217) CREATININE (BEAKER) (test 0.83 mg/dL 0.57-1.25 wpyv=605) GLUCOSE RANDOM (BEAKER) 108 mg/dL 70-105 (test gscc=979) CALCIUM (BEAKER) (test 9.0 mg/dL 8.4-10.2 kiyi=650) AST (SGOT) (BEAKER) (test 51 U/L 5-34 xsrh=856) ALT (SGPT) (BEAKER) (test 17 U/L 6-55 isdb=326) EGFR (BEAKER) (test 73 mL/min/1.73 sq m ESTIMATED GFR IS NOT ukas=6778) ACCURATE CREATININE CLEARANCE IN PREDICTING GLOMERULAR FILTRATION RATE. ESTIMATED GFR IS NOT APPLICABLE FOR DIALYSIS PATIENTS. CBC W/PLT COUNT & AUTO [id number] 06:25:00 Test Item Value Reference Range Comments WHITE BLOOD CELL COUNT (BEAKER) (test bppw=641) 6.7 K/ L 3.5-10.5 RED BLOOD CELL COUNT (BEAKER) (test zthe=016) 2.17 M/ L 3.93-5.22 HEMOGLOBIN (BEAKER) (test psiu=199) 6.8 GM/DL 11.2-15.7 HEMATOCRIT (BEAKER) (test glna=591) 21.8 % 34.1-44.9 MEAN CORPUSCULAR VOLUME (BEAKER) (test ztvb=490) 100.5 fL 79.4-94.8 MEAN CORPUSCULAR HEMOGLOBIN (BEAKER) (test 31.3 pg 25.6-32.2 jkwv=836) MEAN CORPUSCULAR HEMOGLOBIN CONC (BEAKER) (test 31.2 GM/DL 32.2-35.5 znus=929) RED CELL DISTRIBUTION WIDTH (BEAKER) (test 19.9 % 11.7-14.4 cvzo=280) PLATELET COUNT (BEAKER) (test wtvo=838) 84 K/CU MM 150-450 MEAN PLATELET VOLUME (BEAKER) (test squn=935) 11.1 fL 9.4-12.3 NUCLEATED RED BLOOD CELLS (BEAKER) (test 0 /100 WBC 0-0 kfzl=226) NEUTROPHILS RELATIVE PERCENT (BEAKER) (test 84 % nipb=924) LYMPHOCYTES RELATIVE PERCENT (BEAKER) (test 4 % crtp=789) MONOCYTES RELATIVE PERCENT (BEAKER) (test 12 % hiqu=360) EOSINOPHILS RELATIVE PERCENT (BEAKER) (test 0 % ccnn=174) BASOPHILS RELATIVE PERCENT (BEAKER) (test 0 % mwlo=797) NEUTROPHILS ABSOLUTE COUNT (BEAKER) (test 5.59 K/ L 1.56-6.13 adko=213) LYMPHOCYTES ABSOLUTE COUNT (BEAKER) (test 0.25 K/ L 1.18-3.74 sxfr=457) MONOCYTES ABSOLUTE COUNT (BEAKER) (test kjbn=699) 0.77 K/ L 0.24-0.36 EOSINOPHILS ABSOLUTE COUNT (BEAKER) (test 0.02 K/ L 0.04-0.36 hloq=524) BASOPHILS ABSOLUTE COUNT (BEAKER) (test rveg=221) 0.00 K/ L 0.01-0.08 IMMATURE GRANULOCYTES-RELATIVE PERCENT (BEAKER) 1 % 0-1 (test yvof=9292) SPIN/CONCENTRATION [id number] 15:23:00 Test Item Value Reference Range Comments CONCENTRATION CHARGED (BEAKER) (test issk=5486) Done POCT-GLUCOSE [id number] 08:15:00 Test Item Value Reference Range Comments POC-GLUCOSE METER (BEAKER) 147 mg/dL 70-110 TESTED AT [facility] [address] [facility] (test olwh=2735) [facility] [address] HIV-1 ANTIGEN WITH HIV-1/2 [id number] 06:57:00 Test Item Value Reference Range Comments HIV-1 ANTIGEN WITH HIV 1\\T\\2 ANTIBODY (2) Nonreactive Nonreactive (BEAKER) (test wslx=3270) [id number] 06:35:00 Test Item Value Reference Range Comments PHOSPHORUS (BEAKER) (test lpkx=337) 2.8 mg/dL 2.3-4.7 [id number] 06:35:00 Test Item Value Reference Range Comments MAGNESIUM (BEAKER) (test cbkn=504) 1.9 mg/dL 1.6-2.6 BASIC METABOLIC [id number] 06:35:00 Test Item Value Reference Range Comments SODIUM (BEAKER) (test 133 meq/L 136-145 xzij=135) POTASSIUM (BEAKER) (test 3.9 meq/L 3.5-5.1 tbgn=995) CHLORIDE (BEAKER) (test 111 meq/L 98-107 dgrm=513) CO2 (BEAKER) (test 13 meq/L 22-29 jkya=552) BLOOD UREA NITROGEN 18 mg/dL 7-21 (BEAKER) (test avyj=096) CREATININE (BEAKER) (test 0.86 mg/dL 0.57-1.25 jvui=301) GLUCOSE RANDOM (BEAKER) 142 mg/dL 70-105 (test sigr=307) CALCIUM (BEAKER) (test 8.7 mg/dL 8.4-10.2 uiro=022) EGFR (BEAKER) (test 70 mL/min/1.73 sq m ESTIMATED GFR IS NOT dezu=5266) ACCURATE CREATININE CLEARANCE IN PREDICTING GLOMERULAR FILTRATION RATE. ESTIMATED GFR IS NOT APPLICABLE FOR DIALYSIS PATIENTS. HEPATIC FUNCTION [id number] 06:35:00 Test Item Value Reference Range Comments TOTAL PROTEIN (BEAKER) (test rlxp=274) 6.4 gm/dL 6.0-8.3 ALBUMIN (BEAKER) (test rucq=2876) 4.0 g/dL 3.5-5.0 BILIRUBIN TOTAL (BEAKER) (test xyob=114) 1.5 mg/dL 0.2-1.2 BILIRUBIN DIRECT (BEAKER) (test xgwe=628) 0.9 mg/dL 0.1-0.5 ALKALINE PHOSPHATASE (BEAKER) (test admv=857) 46 U/L 40-150 AST (SGOT) (BEAKER) (test lwan=042) 32 U/L 5-34 ALT (SGPT) (BEAKER) (test sdxt=826) 12 U/L 6-55 CBC W/PLT COUNT & AUTO [id number] 06:26:00 Test Item Value Reference Range Comments WHITE BLOOD CELL COUNT (BEAKER) (test yrvl=028) 6.4 K/ L 3.5-10.5 RED BLOOD CELL COUNT (BEAKER) (test hkfx=940) 2.47 M/ L 3.93-5.22 HEMOGLOBIN (BEAKER) (test mlvw=775) 7.5 GM/DL 11.2-15.7 HEMATOCRIT (BEAKER) (test oqqo=251) 24.3 % 34.1-44.9 MEAN CORPUSCULAR VOLUME (BEAKER) (test otst=905) 98.4 fL 79.4-94.8 MEAN CORPUSCULAR HEMOGLOBIN (BEAKER) (test 30.4 pg 25.6-32.2 emfs=504) MEAN CORPUSCULAR HEMOGLOBIN CONC (BEAKER) (test 30.9 GM/DL 32.2-35.5 usyd=491) RED CELL DISTRIBUTION WIDTH (BEAKER) (test 20.0 % 11.7-14.4 lnol=698) PLATELET COUNT (BEAKER) (test zxel=811) 85 K/CU MM 150-450 MEAN PLATELET VOLUME (BEAKER) (test drfb=115) 11.3 fL 9.4-12.3 NUCLEATED RED BLOOD CELLS (BEAKER) (test 0 /100 WBC 0-0 xvje=021) NEUTROPHILS RELATIVE PERCENT (BEAKER) (test 92 % iiwn=592) LYMPHOCYTES RELATIVE PERCENT (BEAKER) (test 3 % ntab=525) MONOCYTES RELATIVE PERCENT (BEAKER) (test 5 % wpwu=748) EOSINOPHILS RELATIVE PERCENT (BEAKER) (test 0 % rjcl=164) BASOPHILS RELATIVE PERCENT (BEAKER) (test 0 % cneg=748) NEUTROPHILS ABSOLUTE COUNT (BEAKER) (test 5.89 K/ L 1.56-6.13 ngor=350) LYMPHOCYTES ABSOLUTE COUNT (BEAKER) (test 0.19 K/ L 1.18-3.74 nunr=819) MONOCYTES ABSOLUTE COUNT (BEAKER) (test hhqn=624) 0.31 K/ L 0.24-0.36 EOSINOPHILS ABSOLUTE COUNT (BEAKER) (test 0.00 K/ L 0.04-0.36 lmrx=428) BASOPHILS ABSOLUTE COUNT (BEAKER) (test rgbj=424) 0.00 K/ L 0.01-0.08 IMMATURE GRANULOCYTES-RELATIVE PERCENT (BEAKER) 1 % 0-1 (test vhps=2451) POCT-GLUCOSE [id number] 00:47:00 Test Item Value Reference Range Comments POC-GLUCOSE METER (BEAKER) 220 mg/dL 70-110 TESTED AT [address] (test muyl=0707) [facility] [address] [id number] 19:57:00 Test Item Value Reference Range Comments PHOSPHORUS (BEAKER) (test dhgj=823) 2.9 mg/dL 2.3-4.7 [id number] 19:57:00 Test Item Value Reference Range Comments MAGNESIUM (BEAKER) (test gcut=952) 1.7 mg/dL 1.6-2.6 [id number] 16:27:00 Test Item Value Reference Range Comments PROTIME (BEAKER) (test gsce=227) 18.7 seconds 11.7-14.7 INR (BEAKER) (test tfwh=042) 1.6 <=5.9 PARTIAL THROMBOPLASTIN TIME (BEAKER) (test 36.5 seconds 22.5-36.0 cgkc=168) RECOMMENDED COUMADIN/WARFARIN INR THERAPY RANGESSTANDARD DOSE: 2.0 - 3.0 Includes: PROPHYLAXIS forvenous thrombosis, systemic embolization; TREATMENT for venous thrombosis and/or pulmonary embolus.HIGH RISK: Target INR is 2.5-3.5 for patients with mechanical heart valves.BASIC METABOLIC [id number] 16:24: 00 Test Item Value Reference Range Comments SODIUM (BEAKER) (test 136 meq/L 136-145 dhdj=934) POTASSIUM (BEAKER) (test 3.7 meq/L 3.5-5.1 exus=209) CHLORIDE (BEAKER) (test 113 meq/L 98-107 yufm=309) CO2 (BEAKER) (test 16 meq/L 22-29 zmwb=794) BLOOD UREA NITROGEN 20 mg/dL 7-21 (BEAKER) (test obcm=669) CREATININE (BEAKER) (test 1.03 mg/dL 0.57-1.25 svhr=988) GLUCOSE RANDOM (BEAKER) 133 mg/dL 70-105 (test qnew=745) CALCIUM (BEAKER) (test 8.2 mg/dL 8.4-10.2 fggq=135) EGFR (BEAKER) (test 57 mL/min/1.73 sq m ESTIMATED GFR IS NOT zhjw=6835) ACCURATE CREATININE CLEARANCE IN PREDICTING GLOMERULAR FILTRATION RATE. ESTIMATED GFR IS NOT APPLICABLE FOR DIALYSIS PATIENTS. CBC W/PLT COUNT & AUTO [id number] 16:00:00 Test Item Value Reference Range Comments WHITE BLOOD CELL COUNT (BEAKER) (test cgls=119) 4.6 K/ L 3.5-10.5 RED BLOOD CELL COUNT (BEAKER) (test ipbr=635) 2.57 M/ L 3.93-5.22 HEMOGLOBIN (BEAKER) (test frtp=363) 7.9 GM/DL 11.2-15.7 HEMATOCRIT (BEAKER) (test ykfy=822) 24.9 % 34.1-44.9 MEAN CORPUSCULAR VOLUME (BEAKER) (test zjbn=549) 96.9 fL 79.4-94.8 MEAN CORPUSCULAR HEMOGLOBIN (BEAKER) (test 30.7 pg 25.6-32.2 xhal=773) MEAN CORPUSCULAR HEMOGLOBIN CONC (BEAKER) (test 31.7 GM/DL 32.2-35.5 iqub=002) RED CELL DISTRIBUTION WIDTH (BEAKER) (test 20.0 % 11.7-14.4 rtqa=980) PLATELET COUNT (BEAKER) (test dakm=573) 101 K/CU MM 150-450 MEAN PLATELET VOLUME (BEAKER) (test rrvr=648) 10.5 fL 9.4-12.3 NUCLEATED RED BLOOD CELLS (BEAKER) (test 0 /100 WBC 0-0 rwgg=250) NEUTROPHILS RELATIVE PERCENT (BEAKER) (test 94 % vrjy=626) LYMPHOCYTES RELATIVE PERCENT (BEAKER) (test 3 % nnlw=344) MONOCYTES RELATIVE PERCENT (BEAKER) (test 2 % xctu=859) EOSINOPHILS RELATIVE PERCENT (BEAKER) (test 1 % mzai=809) BASOPHILS RELATIVE PERCENT (BEAKER) (test 1 % opqj=902) NEUTROPHILS ABSOLUTE COUNT (BEAKER) (test 4.31 K/ L 1.56-6.13 itdk=461) LYMPHOCYTES ABSOLUTE COUNT (BEAKER) (test 0.12 K/ L 1.18-3.74 yovh=733) MONOCYTES ABSOLUTE COUNT (BEAKER) (test 0.10 K/ L 0.24-0.36 zhel=906) EOSINOPHILS ABSOLUTE COUNT (BEAKER) (test 0.03 K/ L 0.04-0.36 ahrj=984) BASOPHILS ABSOLUTE COUNT (BEAKER) (test 0.03 K/ L 0.01-0.08 gied=815) IMMATURE GRANULOCYTES-RELATIVE PERCENT (BEAKER) 0 % 0-1 (test ibrj=7062) HGB/HCT (H&H) - STAT [id number] 13:33:00 Test Item Value Reference Range Comments HEMOGLOBIN (BEAKER) (test okbp=398) 8.7 g/dL 12.0-15.0 HEMATOCRIT (BEAKER) (test qxom=318) 26.0 % 36.0-45.0 THIS IS A VENOUS SAMPLECALCIUM, [id number] 13:33:00 Test Item Value Reference Range Comments CALCIUM IONIZED (BEAKER) (test undw=193) 1.07 mmol/L 1.12-1.27 PH, BLOOD (BEAKER) (test zxso=6509) 7.28 GLUCOSE-STAT [id number] 13:33:00 Test Item Value Reference Range Comments GLUCOSE RANDOM (BEAKER) (test abzc=337) 122 mg/dL 70-110 THIS IS A VENOUS SAMPLETHIS IS A VENOUS SAMPLETHIS IS A VENOUS SAMPLESODIUM NA- STAT [id number] 13:32:00 Test Item Value Reference Range Comments SODIUM (BEAKER) (test bwis=067) 135 meq/L 135-148 THIS IS A VENOUS SAMPLETHIS IS A VENOUS SAMPLETHIS IS A VENOUS SAMPLEPOTASSIUM- STAT [id number] 13:32:00 Test Item Value Reference Range Comments POTASSIUM (BEAKER) (test mijq=566) 3.9 meq/L 3.6-5.5 THIS IS A VENOUS SAMPLETHIS IS A VENOUS SAMPLETHIS IS A VENOUS SAMPLEU/S, ABDOMINAL, [id number] 09:32:00Reason for exam:->ascites, acute renal failure, hydronephrosisShould [...] MDReport Verified Date/Time: 02/11/2018 09:32:36 Reading Location: [place] [id number] Ultrasound Reading Room Electronically signed by: BELA RIOS M.D. on 05/2018 09:32 AMPOCT-GLUCOSE [id number] 08:05:00 Test Item Value Reference Range Comments POC-GLUCOSE METER (BEAKER) 117 mg/dL 70-110 TESTED AT [facility] [address] [facility] (test jhbv=6521) [facility] [address] COMPREHENSIVE METABOLIC [id number] 07:53:00 Test Item Value Reference Range Comments TOTAL PROTEIN (BEAKER) 6.1 gm/dL 6.0-8.3 (test tuxf=060) ALBUMIN (BEAKER) (test 3.2 g/dL 3.5-5.0 skqa=8363) ALKALINE PHOSPHATASE 58 U/L 40-150 (BEAKER) (test hdur=776) BILIRUBIN TOTAL (BEAKER) 1.6 mg/dL 0.2-1.2 (test htan=487) SODIUM (BEAKER) (test 135 meq/L 136-145 bpds=743) POTASSIUM (BEAKER) (test 3.5 meq/L 3.5-5.1 ibeo=640) CHLORIDE (BEAKER) (test 111 meq/L 98-107 rqcz=032) CO2 (BEAKER) (test 17 meq/L 22-29 jhlq=474) BLOOD UREA NITROGEN 25 mg/dL 7-21 (BEAKER) (test yptu=509) CREATININE (BEAKER) (test 1.29 mg/dL 0.57-1.25 zxtt=631) GLUCOSE RANDOM (BEAKER) 110 mg/dL 70-105 (test wupb=086) CALCIUM (BEAKER) (test 8.5 mg/dL 8.4-10.2 rsnm=430) AST (SGOT) (BEAKER) (test 39 U/L 5-34 gvth=233) ALT (SGPT) (BEAKER) (test 13 U/L 6-55 vpth=699) EGFR (BEAKER) (test 44 mL/min/1.73 sq m ESTIMATED GFR IS NOT sngy=5536) ACCURATE CREATININE CLEARANCE IN PREDICTING GLOMERULAR FILTRATION RATE. ESTIMATED GFR IS NOT APPLICABLE FOR DIALYSIS PATIENTS. CT, [id number] 07:50:00FINAL REPORT HISTORY : Hernia, complicated Technique: [...] Verified Date/ Time: 02/11/2018 07:50:19 Reading Location: [facility] Diagnostic Imaging Reading Room - [facility] F1 [id number] Electronically signed by: JESSE HATHAWAY M.D. on 2017 07:50 [id number] 07:06:00 Test Item Value Reference Range Comments PROTIME (BEAKER) (test suxn=075) 17.3 seconds 11.7-14.7 INR (BEAKER) (test ijzu=982) 1.4 <=5.9 PARTIAL THROMBOPLASTIN TIME (BEAKER) (test 34.7 seconds 22.5-36.0 bhfm=049) RECOMMENDED COUMADIN/WARFARIN INR THERAPY RANGESSTANDARD DOSE: 2.0 - 3.0 Includes: PROPHYLAXIS forvenous thrombosis, systemic embolization; TREATMENT for venous thrombosis and/or pulmonary embolus.HIGH RISK: Target INR is 2.5-3.5 for patients with mechanical heart valves.CBC W/PLT COUNT & AUTO [id number] 06:22:00 Test Item Value Reference Range Comments WHITE BLOOD CELL COUNT (BEAKER) (test loxm=428) 4.1 K/ L 3.5-10.5 RED BLOOD CELL COUNT (BEAKER) (test pckt=221) 2.36 M/ L 3.93-5.22 HEMOGLOBIN (BEAKER) (test hhkp=611) 7.5 GM/DL 11.2-15.7 HEMATOCRIT (BEAKER) (test whoh=563) 22.9 % 34.1-44.9 MEAN CORPUSCULAR VOLUME (BEAKER) (test ualq=567) 97.0 fL 79.4-94.8 MEAN CORPUSCULAR HEMOGLOBIN (BEAKER) (test 31.8 pg 25.6-32.2 qnda=853) MEAN CORPUSCULAR HEMOGLOBIN CONC (BEAKER) (test 32.8 GM/DL 32.2-35.5 xdxz=400) RED CELL DISTRIBUTION WIDTH (BEAKER) (test 21.1 % 11.7-14.4 ukow=359) PLATELET COUNT (BEAKER) (test iail=332) 131 K/CU MM 150-450 MEAN PLATELET VOLUME (BEAKER) (test sqfl=418) 11.0 fL 9.4-12.3 NUCLEATED RED BLOOD CELLS (BEAKER) (test 0 /100 WBC 0-0 uvob=802) NEUTROPHILS RELATIVE PERCENT (BEAKER) (test 69 % gfgx=365) LYMPHOCYTES RELATIVE PERCENT (BEAKER) (test 11 % mwzb=766) MONOCYTES RELATIVE PERCENT (BEAKER) (test 15 % buto=704) EOSINOPHILS RELATIVE PERCENT (BEAKER) (test 4 % rcqt=766) BASOPHILS RELATIVE PERCENT (BEAKER) (test 1 % ddwf=653) NEUTROPHILS ABSOLUTE COUNT (BEAKER) (test 2.82 K/ L 1.56-6.13 dawo=349) LYMPHOCYTES ABSOLUTE COUNT (BEAKER) (test 0.43 K/ L 1.18-3.74 gffv=695) MONOCYTES ABSOLUTE COUNT (BEAKER) (test 0.60 K/ L 0.24-0.36 potl=537) EOSINOPHILS ABSOLUTE COUNT (BEAKER) (test 0.17 K/ L 0.04-0.36 ronl=820) BASOPHILS ABSOLUTE COUNT (BEAKER) (test 0.03 K/ L 0.01-0.08 aicu=395) IMMATURE GRANULOCYTES-RELATIVE PERCENT (BEAKER) 1 % 0-1 (test wnky=5696) POCT-GLUCOSE [id number] 00:49:00 Test Item Value Reference Range Comments POC-GLUCOSE METER (BEAKER) 95 mg/dL 70-110 TESTED AT [facility] [address] [facility] (test wdsf=3415) [facility] [address] [id number] 21:49:00 Test Item Value Reference Range Comments POTASSIUM (BEAKER) (test 3.9 meq/L 3.5-5.1 Specimen moderately hemolyzed aohj=907) SODIUM, RANDOM [id number] 19:06:00 Test Item Value Reference Range Comments SODIUM URINE (BEAKER) (test acnu=274) < meq/L Reference Range: No NormalsCREATININE, RANDOM [id number] 19:02:00 Test Item Value Reference Range Comments CREATININE URINE (BEAKER) (test iroo=008) 160.3 mg/dL Reference Range: No NormalsPROTEIN, RANDOM [id number] 19:02:00 Test Item Value Reference Range Comments PROTEIN, URINE (BEAKER) (test hnum=1128) 19 mg/dL 0-14 SCREEN, [id number] 18:47:00 Test Item Value Reference Range Comments TEST URINE (BEAKER) (test wkex=480) Negative POCT-GLUCOSE [id number] 18:08:00 Test Item Value Reference Range Comments POC-GLUCOSE METER (BEAKER) 183 mg/dL 70-110 TESTED AT [address] (test nowx=9228) [facility] [address] [id number] 13:33:00 Test Item Value Reference Range Comments POTASSIUM (BEAKER) (test udaf=843) 3.2 meq/L 3.5-5.1 CBC (HEMOGRAM ONLY)2018-02-10 13:20:00 Test Item Value Reference Range Comments WHITE BLOOD CELL COUNT 4.6 K/ L 3.5-10.5 (BEAKER) (test lamc=375) RED BLOOD CELL COUNT (BEAKER) 2.47 M/ L 3.93-5.22 (test oaas=957) HEMOGLOBIN (BEAKER) (test 7.6 GM/DL 11.2-15.7 sbie=623) HEMATOCRIT (BEAKER) (test 23.0 % 34.1-44.9 ovjj=439) MEAN CORPUSCULAR VOLUME 93.1 fL 79.4-94.8 Discordant from previous (BEAKER) (test eusr=631) results. Clinical correlation suggested. MEAN CORPUSCULAR HEMOGLOBIN 30.8 pg 25.6-32.2 (BEAKER) (test ydms=699) MEAN CORPUSCULAR HEMOGLOBIN 33.0 GM/DL 32.2-35.5 CONC (BEAKER) (test gvmu=647) RED CELL DISTRIBUTION WIDTH 20.5 % 11.7-14.4 (BEAKER) (test wpxo=729) PLATELET COUNT (BEAKER) (test 111 K/CU MM 150-450 dcgl=406) MEAN PLATELET VOLUME (BEAKER) 11.2 fL 9.4-12.3 (test kuwp=966) NUCLEATED RED BLOOD CELLS 0 /100 WBC 0-0 (BEAKER) (test eldy=643) POCT-GLUCOSE [id number] 11:51:00 Test Item Value Reference Range Comments POC-GLUCOSE METER (BEAKER) 123 mg/dL 70-110 TESTED AT [address] (test ujsv=2394) [facility] [address] POCT-GLUCOSE [id number] 06:46:00 Test Item Value Reference Range Comments POC-GLUCOSE METER (BEAKER) 237 mg/dL 70-110 TESTED AT [facility] [address] (test fbpk=3834) [facility] [address] CBC (HEMOGRAM ONLY)2018-02-10 06:44:00 Test Item Value Reference Range Comments WHITE BLOOD CELL COUNT (BEAKER) (test pkex=735) 2.8 K/ L 3.5-10.5 RED BLOOD CELL COUNT (BEAKER) (test qwnf=991) 2.34 M/ L 3.93-5.22 HEMOGLOBIN (BEAKER) (test waft=438) 7.2 GM/DL 11.2-15.7 HEMATOCRIT (BEAKER) (test xntx=195) 22.8 % 34.1-44.9 MEAN CORPUSCULAR VOLUME (BEAKER) (test vars=155) 97.4 fL 79.4-94.8 MEAN CORPUSCULAR HEMOGLOBIN (BEAKER) (test 30.8 pg 25.6-32.2 fbau=356) MEAN CORPUSCULAR HEMOGLOBIN CONC (BEAKER) (test 31.6 GM/DL 32.2-35.5 xxux=878) RED CELL DISTRIBUTION WIDTH (BEAKER) (test 20.3 % 11.7-14.4 vtlb=388) PLATELET COUNT (BEAKER) (test nkhe=053) 102 K/CU MM 150-450 MEAN PLATELET VOLUME (BEAKER) (test ottf=191) 11.3 fL 9.4-12.3 NUCLEATED RED BLOOD CELLS (BEAKER) (test 0 /100 WBC 0-0 umpx=670) RAPID DRUG SCREEN, [id number] 06:12:00 Test Item Value Reference Range Comments BARBITURATE URINE (BEAKER) (test jglq=337) Negative Negative BENZODIAZEPINE SCREEN URINE (BEAKER) (test Negative Negative qoyf=241) COCAINE (METAB.) SCREEN (BEAKER) (test rorf=0274) Negative Negative METHADONE SCREEN (BEAKER) (test bdtx=3941) Negative Negative OPIATE SCREEN URINE (BEAKER) (test cezd=630) Negative Negative CANNABINOID SCREEN URINE (BEAKER) (test nvao=159) Negative Negative AMPH/METHAMPH SCREEN (BEAKER) (test gyiv=3439) Negative Negative PHENCYCLIDINE SCREEN URINE (BEAKER) (test skte=535) Negative Negative OXYCODONE SCREEN URINE (BEAKER) (test vywq=5253) Negative Negative DRUG CUTOFF CONC.Cocaine 300 ng/mL Cannabinoid 50 ng/mL Benzodiazepine 200 ng/mLBarbiturate 200 ng/ mLPhencyclidine 25 ng/mLOpiate 300 ng/mLMethadone 300 ng/mLAmphetamine/ 1000 ng/mL MethamphetamineOxycodone 300 ng/mLThis assay provides an unconfirmed qualitative test result for the clinical management of patients in emergency situations. Chain of custody not maintained. Some relg-xyl-bfdhfzj medications, as well as adulterants, may cause inaccurate results. Clinical correlation should be applied. A more comprehensive drug screen or confirmation of a detected drug may be performed upon request.URINALYSIS W/ REFLEX URINE [id number] 04:33:00 Test Item Value Reference Range Comments COLOR (BEAKER) (test tyks=363) Yellow CLARITY (BEAKER) (test pawh=773) Hazy SPECIFIC GRAVITY UA (BEAKER) (test rtti=794) 1.013 1.001-1.035 PH UA (BEAKER) (test anfm=677) 6.0 5.0-8.0 PROTEIN UA (BEAKER) (test dwnx=272) 10 mg/dL Negative GLUCOSE UA (BEAKER) (test baeh=847) Negative Negative KETONES UA (BEAKER) (test xmqy=871) Trace Negative BILIRUBIN UA (BEAKER) (test ijie=367) Negative Negative BLOOD UA (BEAKER) (test qrjd=765) Negative Negative NITRITE UA (BEAKER) (test kmkm=266) Negative Negative LEUKOCYTE ESTERASE UA (BEAKER) (test nmgk=785) Negative Negative UROBILINOGEN UA (BEAKER) (test uuii=063) 0.2 mg/dL 0.2-1.0 RBC UA (BEAKER) (test akpb=903) < /HPF WBC UA (BEAKER) (test roct=890) 2 /HPF BACTERIA (BEAKER) (test wczv=461) Rare MUCUS (BEAKER) (test ijrk=4799) Rare SQUAMOUS EPITHELIAL (BEAKER) (test qkiy=553) 8 /HPF HYALINE CASTS (BEAKER) (test zwtz=918) 70 /LPF AMORPHOUS CRYSTALS (BEAKER) (test drej=9063) Rare SOURCE(BEAKER) (test niqf=2802) BASIC METABOLIC [id number] 02:35:00 Test Item Value Reference Range Comments SODIUM (BEAKER) (test 137 meq/L 136-145 shjt=128) POTASSIUM (BEAKER) (test 2.9 meq/L 3.5-5.1 ttlr=536) CHLORIDE (BEAKER) (test 109 meq/L 98-107 lthf=911) CO2 (BEAKER) (test 14 meq/L 22-29 wgiy=989) BLOOD UREA NITROGEN 31 mg/dL 7-21 (BEAKER) (test fhbi=178) CREATININE (BEAKER) (test 1.98 mg/dL 0.57-1.25 cojl=922) GLUCOSE RANDOM (BEAKER) 146 mg/dL 70-105 (test eirm=648) CALCIUM (BEAKER) (test 8.9 mg/dL 8.4-10.2 ftyo=013) EGFR (BEAKER) (test 27 mL/min/1.73 sq m ESTIMATED GFR IS NOT txwd=8018) ACCURATE CREATININE CLEARANCE IN PREDICTING GLOMERULAR FILTRATION RATE. ESTIMATED GFR IS NOT APPLICABLE FOR DIALYSIS PATIENTS. [id number] 02:35:00 Test Item Value Reference Range Comments MAGNESIUM (BEAKER) (test twyb=400) 2.0 mg/dL 1.6-2.6 HEPATIC FUNCTION [id number] 02:35:00 Test Item Value Reference Range Comments TOTAL PROTEIN (BEAKER) (test qztv=763) 7.4 gm/dL 6.0-8.3 ALBUMIN (BEAKER) (test xxge=1730) 3.8 g/dL 3.5-5.0 BILIRUBIN TOTAL (BEAKER) (test ojqb=582) 1.8 mg/dL 0.2-1.2 BILIRUBIN DIRECT (BEAKER) (test pltb=461) 0.9 mg/dL 0.1-0.5 ALKALINE PHOSPHATASE (BEAKER) (test qcdy=002) 73 U/L 40-150 AST (SGOT) (BEAKER) (test uxoe=972) 38 U/L 5-34 ALT (SGPT) (BEAKER) (test voqb=018) 14 U/L 6-55 BLOOD GAS, [id number] 02:34:00 Test Item Value Reference Range Comments PH VENOUS (BEAKER) (test yfdn=105) 7.42 7.32-7.42 PCO2 VENOUS (BEAKER) (test xnox=572) 28 mmHg 41-51 PO2 VENOUS (BEAKER) (test ckef=137) 34 mmHg 25-40 O2 SATURATION VENOUS (BEAKER) (test lrjd=282) 67.6 % 40.0-70.0 HCO3 VENOUS (BEAKER) (test dnrk=115) 17 mmol/L 21-29 BASE EXCESS VENOUS (BEAKER) (test invh=812) -6.2 mmol/L -2.0-3.0 PATIENT TEMPERATURE (BEAKER) (test zfur=5540) 37.0 C [id number] 02:33:00 Test Item Value Reference Range Comments PHOSPHORUS (BEAKER) (test uicm=104) 3.7 mg/dL 2.3-4.7 [id number] 02:33:00 Test Item Value Reference Range Comments LIPASE (BEAKER) (test midl=994) 40 U/L 8-78 CREATINE KINASE (CK), TOTAL AND [id number] 02:30:00 Test Item Value Reference Range Comments CREATINE KINASE TOTAL (BEAKER) (test bxat=872) 30 U/L 29-200 CREATINE KINASE-MB (BEAKER) (test yhyw=238) 0.4 ng/mL 0.0-6.6 CREATINE KINASE-MB INDEX (BEAKER) (test ylpn=834) 1.3 % CK-MB Reference Range:<6.7 Normal6.7-10.0 Borderline>10.0 AbnormalTROPONIN [id number] 02:30:00 Test Item Value Reference Range Comments TROPONIN I (BEAKER) (test yjlw=142) < ng/mL 0.00-0.03 Troponin I (TnI) levels [...] failure, acidosis, acute neurological disease, and persistent tachyarrhythmia.[id number] 02:19:00 Test Item Value Reference Range Comments ETHANOL (BEAKER) (test zrqk=641) < mg/dL <=10 [id number] 02:17:00 Test Item Value Reference Range Comments PARTIAL THROMBOPLASTIN TIME (BEAKER) (test 32.8 seconds 22.5-36.0 fvau=273) LACTIC ACID, VENOUS, WHOLE [id number] 02:17:00 Test Item Value Reference Range Comments LACTATE BLOOD VENOUS (2) (BEAKER) (test 1.2 mmol/L 0.5-2.2 rafs=6969) Effective 12/07/2015: Units/Reference Range ChangeNew: 0.5-2.2 mmol/L Previous: 5 -20 mg/dLPROTHROMBIN [id number] 02:16:00 Test Item Value Reference Range Comments PROTIME (BEAKER) (test gfdy=496) 17.0 seconds 11.7-14.7 INR (BEAKER) (test kfrf=701) 1.4 <=5.9 RECOMMENDED COUMADIN/WARFARIN INR THERAPY RANGESSTANDARD DOSE: 2.0 - 3.0 Includes: PROPHYLAXIS forvenous thrombosis, systemic embolization; TREATMENT for venous thrombosis and/or pulmonary embolus.HIGH RISK: Target INR is 2.5-3.5 for patients with mechanical heart valves.[id number] 02:16:00 Test Item Value Reference Range Comments AMMONIA (BEAKER) (test nslm=641) 75 mol/L 18-72 [id number] 02:16:00 Test Item Value Reference Range Comments FIBRINOGEN LEVEL (BEAKER) (test rscw=955) 372 mg/dl 225-434 CBC W/PLT COUNT & AUTO [id number] 02:10:00 Test Item Value Reference Range Comments WHITE BLOOD CELL COUNT (BEAKER) (test ptpm=677) 4.0 K/ L 3.5-10.5 RED BLOOD CELL COUNT (BEAKER) (test gqql=104) 2.78 M/ L 3.93-5.22 HEMOGLOBIN (BEAKER) (test kczp=336) 8.5 GM/DL 11.2-15.7 HEMATOCRIT (BEAKER) (test tbyw=104) 25.8 % 34.1-44.9 MEAN CORPUSCULAR VOLUME (BEAKER) (test lbfo=683) 92.8 fL 79.4-94.8 MEAN CORPUSCULAR HEMOGLOBIN (BEAKER) (test 30.6 pg 25.6-32.2 uttt=073) MEAN CORPUSCULAR HEMOGLOBIN CONC (BEAKER) (test 32.9 GM/DL 32.2-35.5 npvb=950) RED CELL DISTRIBUTION WIDTH (BEAKER) (test 18.7 % 11.7-14.4 quji=716) PLATELET COUNT (BEAKER) (test gzyg=595) 110 K/CU MM 150-450 MEAN PLATELET VOLUME (BEAKER) (test vxtq=961) 11.2 fL 9.4-12.3 NUCLEATED RED BLOOD CELLS (BEAKER) (test 0 /100 WBC 0-0 obnz=694) NEUTROPHILS RELATIVE PERCENT (BEAKER) (test 92 % zknr=285) LYMPHOCYTES RELATIVE PERCENT (BEAKER) (test 4 % ccsy=332) MONOCYTES RELATIVE PERCENT (BEAKER) (test 3 % swfg=359) EOSINOPHILS RELATIVE PERCENT (BEAKER) (test 1 % itfw=796) BASOPHILS RELATIVE PERCENT (BEAKER) (test 0 % iewm=417) NEUTROPHILS ABSOLUTE COUNT (BEAKER) (test 3.69 K/ L 1.56-6.13 mfce=115) LYMPHOCYTES ABSOLUTE COUNT (BEAKER) (test 0.14 K/ L 1.18-3.74 ptzp=106) MONOCYTES ABSOLUTE COUNT (BEAKER) (test 0.11 K/ L 0.24-0.36 tqwa=207) EOSINOPHILS ABSOLUTE COUNT (BEAKER) (test 0.03 K/ L 0.04-0.36 gfsz=928) BASOPHILS ABSOLUTE COUNT (BEAKER) (test 0.01 K/ L 0.01-0.08 bepg=611) IMMATURE GRANULOCYTES-RELATIVE PERCENT (BEAKER) 1 % 0-1 (test tmmh=9717) ANTI-NUCLEAR ANTIBODY (LÓPEZ)2017-11-29 09:50:00 Test Item Value Reference Range Comments ANTI-NUCLEAR ANTIBODY (LÓPEZ) (BEAKER) (test Positive Negative yueu=715) LÓPEZ TITER AND [id number] 09:50:00 Test Item Value Reference Range Comments LÓPEZ TITER (BEAKER) (test ssyz=2469) :40 LÓPEZ PATTERN (BEAKER) (test vnxr=9299) Speckled [id number] 15:34:00 Test Item Value Reference Range Comments FERRITIN (BEAKER) (test twch=013) 237 ng/mL 5-275 HEPATITIS B SURFACE [id number] 14:54:00 Test Item Value Reference Range Comments HEPATITIS B SURFACE ANTIBODY (BEAKER) (test < mIU/mL <8.0 hqvy=385) HEPATITIS B SURFACE [id number] 14:49:00 Test Item Value Reference Range Comments HEPATITIS B SURFACE ANTIGEN (2) (BEAKER) (test Nonreactive Nonreactive wkrz=1708) HEPATITIS C [id number] 14:49:00 Test Item Value Reference Range Comments HEPATITIS C ANTIBODY (BEAKER) (test lgja=267) Nonreactive Nonreactive ALPHA FETOPROTEIN (AFP), TUMOR [id number] 14:48:00 Test Item Value Reference Range Comments ALPHA-FETOPROTEIN (BEAKER) (test arir=3449) 4.9 ng/mL <10.0 HEPATITIS B CORE ANTIBODY, [id number] 14:48:00 Test Item Value Reference Range Comments HEPATITIS B CORE TOTAL ANTIBODY (BEAKER) (test Nonreactive Nonreactive xeji=585) HEPATITIS A ANTIBODY, [id number] 14:48:00 Test Item Value Reference Range Comments HEPATITIS A IGG ANTIBODY (BEAKER) (test Nonreactive Nonreactive myqe=2641) CBC W/PLT COUNT & AUTO [id number] 14:30:00 Test Item Value Reference Range Comments WHITE BLOOD CELL COUNT (BEAKER) (test voca=132) 5.2 K/ L 3.5-10.5 RED BLOOD CELL COUNT (BEAKER) (test xhys=924) 2.96 M/ L 3.93-5.22 HEMOGLOBIN (BEAKER) (test ycme=248) 9.7 GM/DL 11.2-15.7 HEMATOCRIT (BEAKER) (test tgcs=211) 31.0 % 34.1-44.9 MEAN CORPUSCULAR VOLUME (BEAKER) (test kppg=863) 104.7 fL 79.4-94.8 MEAN CORPUSCULAR HEMOGLOBIN (BEAKER) (test 32.8 pg 25.6-32.2 mjqx=991) MEAN CORPUSCULAR HEMOGLOBIN CONC (BEAKER) (test 31.3 GM/DL 32.2-35.5 hmxd=997) RED CELL DISTRIBUTION WIDTH (BEAKER) (test 17.8 % 11.7-14.4 foky=782) PLATELET COUNT (BEAKER) (test jxxc=132) 92 K/CU MM 150-450 MEAN PLATELET VOLUME (BEAKER) (test zdvj=072) 10.3 fL 9.4-12.3 NUCLEATED RED BLOOD CELLS (BEAKER) (test 0 /100 WBC 0-0 ddib=370) NEUTROPHILS RELATIVE PERCENT (BEAKER) (test 81 % fixh=078) LYMPHOCYTES RELATIVE PERCENT (BEAKER) (test 6 % uuyr=459) MONOCYTES RELATIVE PERCENT (BEAKER) (test 9 % zmsf=187) EOSINOPHILS RELATIVE PERCENT (BEAKER) (test 3 % nzcv=707) BASOPHILS RELATIVE PERCENT (BEAKER) (test 1 % ltou=830) NEUTROPHILS ABSOLUTE COUNT (BEAKER) (test 4.23 K/ L 1.56-6.13 zvyv=416) LYMPHOCYTES ABSOLUTE COUNT (BEAKER) (test 0.29 K/ L 1.18-3.74 zcqu=452) MONOCYTES ABSOLUTE COUNT (BEAKER) (test kcjh=251) 0.49 K/ L 0.24-0.36 EOSINOPHILS ABSOLUTE COUNT (BEAKER) (test 0.14 K/ L 0.04-0.36 rift=292) BASOPHILS ABSOLUTE COUNT (BEAKER) (test wlyw=960) 0.06 K/ L 0.01-0.08 IMMATURE GRANULOCYTES-RELATIVE PERCENT (BEAKER) 0 % 0-1 (test lkre=7688) COMPREHENSIVE METABOLIC [id number] 14:28:00 Test Item Value Reference Range Comments TOTAL PROTEIN (BEAKER) 7.6 gm/dL 6.0-8.3 (test drzw=121) ALBUMIN (BEAKER) (test 3.6 g/dL 3.5-5.0 xkgm=4125) ALKALINE PHOSPHATASE 144 U/L 40-150 (BEAKER) (test zvfk=739) BILIRUBIN TOTAL (BEAKER) 1.1 mg/dL 0.2-1.2 (test usfv=318) SODIUM (BEAKER) (test 135 meq/L 136-145 xonb=422) POTASSIUM (BEAKER) (test 3.6 meq/L 3.5-5.1 fwog=101) CHLORIDE (BEAKER) (test 103 meq/L 98-107 unpu=071) CO2 (BEAKER) (test 22 meq/L 22-29 sfhj=779) BLOOD UREA NITROGEN 16 mg/dL 7-21 (BEAKER) (test sihf=616) CREATININE (BEAKER) (test 1.82 mg/dL 0.57-1.25 jqqi=590) GLUCOSE RANDOM (BEAKER) 102 mg/dL 70-105 (test pxxj=639) CALCIUM (BEAKER) (test 9.1 mg/dL 8.4-10.2 hymv=716) AST (SGOT) (BEAKER) (test 39 U/L 5-34 qsol=221) ALT (SGPT) (BEAKER) (test 14 U/L 6-55 kelc=615) EGFR (BEAKER) (test 30 mL/min/1.73 sq m ESTIMATED GFR IS NOT royl=1524) ACCURATE CREATININE CLEARANCE IN PREDICTING GLOMERULAR FILTRATION RATE. ESTIMATED GFR IS NOT APPLICABLE FOR DIALYSIS PATIENTS. BILIRUBIN, [id number] 14:28:00 Test Item Value Reference Range Comments BILIRUBIN DIRECT (BEAKER) (test yega=753) 0.6 mg/dL 0.1-0.5 IRON, TIBC, % SAT. (WITHOUT FERRITIN)2017-11-27 14:26:00 Test Item Value Reference Range Comments IRON (BEAKER) (test iklk=371) 37 ug/dL 40-160 TOTAL IRON BINDING CAPACITY (BEAKER) (test 219 ug/dL 250-450 fcoy=631) IRON % SATURATION (2) (BEAKER) (test gici=7232) 17 % 20-55 [id number] 14:25:00 Test Item Value Reference Range Comments ALPHA-1 ANTITRYPSIN (BEAKER) (test hdwd=944) 151.80 mg/dL 90.00-200.00 PROTHROMBIN TIME/[id number] 14:03:00 Test Item Value Reference Range Comments PROTIME (BEAKER) (test wqpp=202) 17.2 seconds 11.7-14.7 INR (BEAKER) (test thyv=243) 1.4 <=5.9 RECOMMENDED COUMADIN/WARFARIN INR THERAPY RANGESSTANDARD DOSE: 2.0 - 3.0 Includes: PROPHYLAXIS forvenous thrombosis, systemic embolization; TREATMENT for venous thrombosis and/or pulmonary embolus.HIGH RISK: Target INR is 2.5-3.5 for patients with mechanical heart valves.
[2019-01-29 17:33] LABS: Absolute Lymphocytes (CBC) 0.1 K/uL (0.7-4.9); Basophils % 1.1 % (0-1.3); Eosinophils % 1.2 % (0-4.4); Hematocrit 34.1 % (36.0-45.0); Lymphocytes % 2.4 % (15.3-44.8); MPV 8.8 fL (7.6-11.3); Monocytes % 11.7 % (3.3-12.3); RBC Red Blood Cell Count 3.85 M/uL (3.86-4.86)
[2019-01-29 17:49] LABS: Albumin 3.3 g/dL (3.4-5.0); Bilirubin Direct 0.5 mg/dL (0-0.2); Potassium 4.7 mmol/L (3.5-5.1); Protein, Total 8.2 g/dL (6.4-8.2)
[2019-01-29 18:38] LABS: Urine Blood NEGATIVE (NEG); Urine Glucose NEGATIVE (NEG); Urine Protein 1+ (NEG); Urine Specific Gravity 1.025 (1.005-1.030)
--- NOTE | 2019-01-29 18:47 | RAD REPORT ---
EXAM DESCRIPTION: CT - Abdomen Pelvis W Contrast - 01/29/2019 6:24 pm CLINICAL HISTORY: Abdominal pain . COMPARISON: January 2018 TECHNIQUE: Computed axial tomography of the abdomen pelvis was obtained. 100 cc Isovue-300 was admin istered intravenously. Oral contrast was not requested which limits evaluation of bowel. All CT scans are performed using dose optimization technique as appropriate and may include automated exposure control or mA/KV adjustment according to patient size. FINDINGS: A cirrhotic liver contains areas of fibrosis. Spleen measures 14 centimeters. Varices with in the upper abdomen. Small amount of ascites The pancreas, adrenals and kidneys appear unremarkable. Gallstones without gallbladder wall thickening. There is no evidence of diverticulitis. . The wall of the colon appears mildly thickened Subcutaneous abscess is not seen IMPRESSION: Cirrhosis Mild thickening of the wall of the colon probably secondary to hypoalbuminemia. Colitis can also this appearance should be correlated clinically Cholelithiasis without cholecystitis.
--- NOTE | 2019-01-29 19:01 | EDPHYS ---
Physician Documentation [facility] Name: Amauri Miller Age: 48 yrs Sex: Female : 1970 Arrival Date: 01/29/2019 Time: 16:29 Bed 26 Private MD: ED Physician Gilberto Duenas HPI: 01/29 17:55 This 48 yrs old Female presents to ER via EMS with complaints of abdominal pm1 pain and wound on abdomen. 17:55 The patient presents with abdominal pain in the upper abdomen. Onset: The pm1 symptoms/episode began/occurred 3 day(s) ago. The symptoms do not radiate. Associated signs and symptoms: Pertinent positives: diarrhea, nausea, Pertinent negatives: chest pain, constipation, shortness of breath, vomiting, fever that has resolved three days ago. Modifying factors: The symptoms are alleviated by nothing, the symptoms are aggravated by nothing. The patient has been recently seen by a physician: paracentesis last week. Patient with wound on abdomen where prior hernia repair performed 8 months ago. Reports clear discharge from the wound when she stands up. No redness warmth on abdomen. 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 mg2 Historical: - Allergies: 16:36 No Known Allergies; mg2 - Home Meds: 18:21 ciprofloxacin chl 500 mg once dialy for 30 days [Active]; ferrous sulfate 134 mg (27 mg mg2 iron) Oral tab [Active]; folic acid 1 mg Oral tab 1 tab once daily [Active]; furosemide 40 mg Oral tab 1 tab once daily [Active]; lactulose 20 gram/30 mL Oral soln 30 mL 3 times per day [Active]; multivitamin with minerals Oral tab [Active]; nadolol 20 mg Oral tab 1 tab once daily [Active]; omeprazole 20 mg Oral cpDR 2 caps 2 times per day [Active]; potassium chloride 20 mEq Oral TbTQ 1 tab once daily [Active]; rifaximin 550 mg tab Oral 1 tab 2 times per day [Active]; sodium bicarbonate 650 mg Oral tab twice a day [Active]; tramadol 50 mg Oral tab 1 tab every 6 hours [Active]; vitamin b1 [Active]; Vitamin B-6 Oral [Active]; Zofran (as hydrochloride) 4 mg Oral tab 2 tabs for one tab as needed [Active]; - PMHx: 16:36 Anemia; Cirrhosis; esophageal varices; Hernia; second one, not repaired; possible htn; mg2 - PSHx: 16:36 Hernia repair; mg2 - Immunization history:: Flu vaccine is not up to date. - Social history:: Smoking status: Patient uses tobacco products, smokes one-half pack cigarettes per day. - Ebola Screening: : No symptoms or risks identified at this time. ROS: 17:55 Constitutional: Negative for fever, chills, and weight loss, Eyes: Negative for injury, pm1 pain, redness, and discharge, ENT: Negative for injury, pain, and discharge, Neck: Negative for injury, pain, and swelling, Cardiovascular: Negative for chest pain, palpitations, and edema, Respiratory: Negative for shortness of breath, cough, wheezing, and pleuritic chest pain. 17:55 Back: Negative for injury and pain, : Negative for injury, bleeding, discharge, and swelling, MS/Extremity: Negative for injury and deformity. 17:55 Neuro: Negative for headache, weakness, numbness, tingling, and seizure. 17:55 Abdomen/GI: Positive for abdominal pain, nausea, diarrhea, Negative for vomiting. 17:55 Skin: Positive for wound on hernia repair scar tissue. Exam: 17:55 Constitutional: This is a well developed, well nourished patient who is awake, alert, pm1 and in no acute distress. Head/Face: Normocephalic, atraumatic. Eyes: Pupils equal round and reactive to light, extra-ocular motions intact. Lids and lashes normal. Conjunctiva and sclera are non-icteric and not injected. Cornea within normal limits. Periorbital areas with no swelling, redness, or edema. ENT: Nares patent. No nasal discharge, no septal abnormalities noted. Tympanic membranes are normal and external auditory canals are clear. Oropharynx with no redness, swelling, or masses, exudates, or evidence of obstruction, uvula midline. Mucous membranes moist. Neck: Trachea midline, no thyromegaly or masses palpated, and no cervical lymphadenopathy. Supple, full range of motion without nuchal rigidity, or vertebral point tenderness. No Meningismus. Chest/axilla: Normal chest wall appearance and motion. Nontender with no deformity. No lesions are appreciated. Cardiovascular: Regular rate and rhythm with a normal S1 and S2. No gallops, murmurs, or rubs. Normal PMI, no JVD. No pulse deficits. Respiratory: Lungs have equal breath sounds bilaterally, clear to auscultation and percussion. No rales, rhonchi or wheezes noted. No increased work of breathing, no retractions or nasal flaring. Abdomen/GI: Soft, non-tender, with normal bowel sounds. No distension or tympany. No guarding or rebound. No evidence of tenderness throughout. Back: No spinal tenderness. No costovertebral tenderness. Full range of motion. 17:55 MS/ Extremity: Pulses equal, no cyanosis. Neurovascular intact. Full, normal range of motion. 17:55 Skin: Appearance: normal except for affected area, abscess, not appreciated, cellulitis, is not appreciated, injury, abrasion(s), small abrasion noted, 1 cm(s), of the hernia scar tissue on ventral abdomen. 17:55 Neuro: Orientation: is normal, Motor: is normal, moves all fours, Sensation: is normal, no obvious gross deficits. Vital Signs: 16:35 BP 117 / 77; Pulse 100; Resp 18; Temp 99; Pulse Ox 100% on R/A; Weight 61.69 kg; Height mg2 5 ft. 6 in. (167.64 cm); Pain 10/10; 18:19 BP 103 / 66; Pulse 109; Resp 18; Pulse Ox 99% on R/A; mg2 18:43 BP 118 / 75; Pulse 103; Resp 18; Pulse Ox 100% on R/A; mg2 19:55 BP 122 / 77; Pulse 101; Resp 18; Temp 99; Pulse Ox 100% on R/A; Pain 0/10; mg2 16:35 Body Mass Index 21.95 (61.69 kg, 167.64 cm) mg2 MDM: 16:49 Patient medically screened. pm1 18:58 Data reviewed: vital signs. Data interpreted: Pulse oximetry: on room air is 100 %. pm1 Interpretation: normal. Counseling: I had a detailed discussion with the patient and/or guardian regarding: the historical points, exam findings, and any diagnostic results supporting the discharge/admit diagnosis, lab results, radiology results, the need for outpatient follow up, to return to the emergency department if symptoms worsen or persist or if there are any questions or concerns that arise at home. 01/29 17:02 Order name: Basic Metabolic Panel; Complete Time: 17:55 pm1 01/29 17:02 Order name: CBC with Diff; Complete Time: 17:35 pm1 01/29 17:02 Order name: Creatinine for Radiology; Complete Time: 17:55 pm1 01/29 17:02 Order name: Hepatic Function; Complete Time: 17:55 pm1 01/29 17:02 Order name: Lipase; Complete Time: 17:55 pm1 01/29 18:18 Order name: Urine Dipstick--Ancillary (enter results); Complete Time: 18:43 eb 01/29 17:02 Order name: IV Saline Lock; Complete Time: 17:25 pm1 01/29 17:02 Order name: Labs collected and sent; Complete Time: 17:25 pm1 01/29 17:02 Order name: CT Abd/Pelvis - IV Contrast Only; Complete Time: 18:53 pm1 01/29 17:02 Order name: Urine Dipstick-Ancillary (obtain specimen); Complete Time: 18:22 pm1 01/29 17:02 Order name: Urine Test (obtain specimen); Complete Time: 18:22 pm01/29 18:18 Order name: Urine --Ancillary (enter results); Complete Time: 18:43 eb Administered Medications: 19:22 Drug: Cipro 500 mg Route: PO; mg2 19:56 Follow up: Response: No adverse reaction mg2 19:22 Drug: Flagyl 500 mg Volume: 100 ml; Route: IVPB; Rate: 200 ml/hr; Infused Over: 30 mg2 mins; Site: right antecubital; 19:56 Follow up: Response: No adverse reaction; IV Status: Completed infusion mg2 Disposition: 01/30 16:45 Co-signature as Attending Physician, Gilberto Duenas MD. gs Disposition: 01/29/19 19:00 Discharged to Home. Impression: Abrasion of abdominal wall, Colitis. - Condition is Stable. - Discharge Instructions: Abrasion, Colitis. - Prescriptions for Bactroban 2 % Topical Ointment - Apply to affected area 1 application by TOPICAL route every 12 hours; 30 gram. Flagyl 500 mg Oral Tablet - take 1 tablet by ORAL route every 8 hours for 10 days; 30 tablet. Cipro 500 mg Oral Tablet - take 1 tablet by ORAL route every 12 hours for 10 days; 20 tablet. promethazine 25 mg Oral Tablet - take 1 tablet by ORAL route every 6 hours As needed; 20 tablet. - Medication Reconciliation Form, Thank You Letter, Antibiotic Education, Prescription Opioid Use form. - Follow up: Emergency Department; When: As needed; Reason: Worsening of condition. Follow up: Private Physician; When: 2 - 3 days; Reason: Recheck today's complaints, Continuance of care, Re-evaluation by your physician. - Problem is new. - Symptoms have improved. Signatures: Dispatcher [employer] EDMS Jeovanny Tobar, HYDROELECTRIC PLANT ELECTRICAL ENGINEER HYDROELECTRIC PLANT ELECTRICAL ENGINEER pm1 Gilberto Duenas MD MD gs Mykel Jack, KIMBERLY RN mg2 Corrections: (The following items were deleted from the chart) 01/29 19:14 19:00 01/29/2019 19:00 Discharged to Home. Impression: Abrasion of abdominal wall. pm1 Condition is Stable. Forms are Medication Reconciliation Form, Thank You Letter, Antibiotic Education, Prescription Opioid Use. Follow up: Emergency Department; When: As needed; Reason: Worsening of condition. Follow up: Private Physician; When: 2 - 3 days; Reason: Recheck today's complaints, Continuance of care, Re-evaluation by your physician. Problem is new. Symptoms have improved. pm1 20:57 19:14 01/29/2019 19:00 Discharged to Home. Impression: Abrasion of abdominal wall; mg2 Colitis. Condition is Stable. Discharge Instructions: Abrasion. Prescriptions for Bactroban 2 % Topical Ointment - Apply to affected area 1 application by TOPICAL route every 12 hours; 30 gram, Doxycycline Hyclate 100 mg Oral Tablet - take 1 tablet by ORAL route every 12 hours; 20 tablet. and Forms are Medication Reconciliation Form, Thank You Letter, Antibiotic Education, Prescription Opioid Use. Follow up: Emergency Department; When: As needed; Reason: Worsening of condition. Follow up: Private Physician; When: 2 - 3 days; Reason: Recheck today's complaints, Continuance of care, Re-evaluation by your physician. Problem is new. Symptoms have improved. pm1
--- NOTE | 2019-01-29 19:01 | ER ---
Nurse's Notes [facility] Name: Amauri Miller Age: 48 yrs Sex: Female : 1970 Arrival Date: 01/29/2019 Time: 16:29 Bed 26 Private MD: Diagnosis: Abrasion of abdominal wall;Colitis Presentation: 01/29 16:31 Presenting complaint: EMS states: patient had a hernia repair 8 months ago in [place] [address] and for 3 days now she noticed yellow discharges from the post op site. the site was already healed but now it's open. had low grade fever 2 nights ago. she also complained of upper abdominal and lower back pain with n/v and diarrhea since yesterday. BGL 82 mg/dl. Transition of care: patient was not received from another setting of care. Onset of symptoms was January 27, 2019. Risk Assessment: Do you want to hurt yourself or someone else? Patient reports no desire to harm self or others. Initial Sepsis Screen: Does the patient meet any 2 criteria? No. Patient's initial sepsis screen is negative. Does the patient have a suspected source of infection? No. Patient's initial sepsis screen is negative. Care prior to arrival: None. 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 Historical: - Allergies: 16:36 No Known Allergies; mg2 - Home Meds: 18:21 ciprofloxacin chl 500 mg once dialy for 30 days [Active]; ferrous sulfate 134 mg (27 mg mg2 iron) Oral tab [Active]; folic acid 1 mg Oral tab 1 tab once daily [Active]; furosemide 40 mg Oral tab 1 tab once daily [Active]; lactulose 20 gram/30 mL Oral soln 30 mL 3 times per day [Active]; multivitamin with minerals Oral tab [Active]; nadolol 20 mg Oral tab 1 tab once daily [Active]; omeprazole 20 mg Oral cpDR 2 caps 2 times per day [Active]; potassium chloride 20 mEq Oral TbTQ 1 tab once daily [Active]; rifaximin 550 mg tab Oral 1 tab 2 times per day [Active]; sodium bicarbonate 650 mg Oral tab twice a day [Active]; tramadol 50 mg Oral tab 1 tab every 6 hours [Active]; vitamin b1 [Active]; Vitamin B-6 Oral [Active]; Zofran (as hydrochloride) 4 mg Oral tab 2 tabs for one tab as needed [Active]; - PMHx: 16:36 Anemia; Cirrhosis; esophageal varices; Hernia; second one, not repaired; possible htn; mg2 - PSHx: 16:36 Hernia repair; mg2 - Immunization history:: Flu vaccine is not up to date. - Social history:: Smoking status: Patient uses tobacco products, smokes one-half pack cigarettes per day. - Ebola Screening: : No symptoms or risks identified at this time. Screenin:25 Abuse screen: Denies threats or abuse. Denies injuries from another. Nutritional mg2 screening: No deficits noted. Tuberculosis screening: No symptoms or risk factors identified. Fall Risk IV access (20 points). Assessment: 18:16 General: Appears in no apparent distress. comfortable, Behavior is calm, cooperative. mg2 Pain: Complains of pain in back and abdomen Pain does not radiate. Pain currently is 6 out of 10 on a pain scale. Quality of pain is described as burning, aching, Pain began gradually, 2-3 days ago. Is intermittent. Neuro: Level of Consciousness is awake, alert, obeys commands, Oriented to person, place, time, situation. Cardiovascular: Capillary refill < 3 seconds Patient's skin is warm and dry. Respiratory: Airway is patent Respiratory effort is even, unlabored, Respiratory pattern is regular, symmetrical. GI: Abdomen is flat, non-distended, Reports upper abdominal pain, diarrhea, nausea, vomiting, since 2 days now. : Urine is clear. EENT: No signs and/or symptoms were reported regarding the EENT system. Derm: Skin post op site -(umbilical hernia) red and open, reported some discharge for the last 3 days. Musculoskeletal: Circulation, motion, and sensation intact. Capillary refill < 3 seconds. 19:10 Reassessment: No changes from previously documented assessment. mg2 19:22 Reassessment: patient is up for discharge once IV antibiotic is completed. mg2 Vital Signs: 16:35 BP 117 / 77; Pulse 100; Resp 18; Temp 99; Pulse Ox 100% on R/A; Weight 61.69 kg; Height mg2 5 ft. 6 in. (167.64 cm); Pain 10/10; 18:19 BP 103 / 66; Pulse 109; Resp 18; Pulse Ox 99% on R/A; mg2 18:43 BP 118 / 75; Pulse 103; Resp 18; Pulse Ox 100% on R/A; mg2 19:55 BP 122 / 77; Pulse 101; Resp 18; Temp 99; Pulse Ox 100% on R/A; Pain 0/10; mg2 16:35 Body Mass Index 21.95 (61.69 kg, 167.64 cm) mg2 ED Course: 16:29 Patient arrived in ED. mg2 16:31 Mykel Jack RN is Primary Nurse. mg2 16:32 Jeovanny Tobar NP is PHCP. pm1 16:32 Gilberto Duenas MD is Attending Physician. pm1 16:35 Triage completed. mg2 17:25 No provider procedures requiring assistance completed. Inserted saline lock: 20 gauge mg2 in right antecubital area, using aseptic technique. Blood collected. 18:18 Patient has correct armband on for positive identification. Pulse ox on. NIBP on. Door mg2 closed. Warm blanket given. Pillow given. socks provided. 18:27 CT Abd/Pelvis - IV Contrast Only In Process Unspecified. EDMS 19:10 Arm band placed on. mg2 19:57 IV discontinued, intact, bleeding controlled, No redness/swelling at site. Pressure mg2 dressing applied. Administered Medications: 19:22 Drug: Cipro 500 mg Route: PO; mg2 19:56 Follow up: Response: No adverse reaction mg2 19:22 Drug: Flagyl 500 mg Volume: 100 ml; Route: IVPB; Rate: 200 ml/hr; Infused Over: 30 mg2 mins; Site: right antecubital; 19:56 Follow up: Response: No adverse reaction; IV Status: Completed infusion mg2 Outcome: 19:00 Discharge ordered by . pm1 19:56 Condition: stable mg2 19:56 Discharge instructions given to patient, Instructed on discharge instructions, follow up and referral plans. medication usage, Demonstrated understanding of instructions, follow-up care, medications, Prescriptions given X 4. 20:57 Patient left the ED. mg2 Signatures: Dispatcher [employer] EDMS Jeovanny Tobar, JASON PACKAGING CLERK pm1 Mykel Jack RN RN mg2
[2019-01-29] MEDS ORDERED: CIPROFLOXACIN HCL 500 MG TAB ONE (19:34)
[2019-01-29] MEDS ORDERED: METRONIDAZOLE 500mg IVPB 500 MG/100 ML BAG IV ONE (19:34)
[2019-01-29 21:35] VITALS: BP 122/77; TEMP 99; O2SAT 100
== END 2019-01-29 20:57 | disposition home or self-care (01) ==
LOC: ER 16:23
DX: K52.9 Noninfective gastroenteritis and colitis, unspecified (principal); S30.811A Abrasion of abdominal wall, initial encounter; K74.60 Unspecified cirrhosis of liver; F17.210 Nicotine dependence, cigarettes, uncomplicated
CPT/HCPCS: 36415; 74177; 80048; 80076; 81003; 81025; 83690; 85025; 96365; 99284; Q9967

== ENCOUNTER 2019-02-10 10:41 | Observation (INO) | payer MEDICAID ==
--- OUTSIDE RECORDS SUMMARY | 2019-02-10 10:45 | XMS REPORT | Clinical Summary ---
:1970 Author Organization [facility] Address [address] [place] [address] Care Team Providers Name Role Phone Alison [...] abdominal pain (Primary Dx); 08/08/2018 Medicine Dorothy iWn MD Ascites due to alcoholic cirrhosis (HCC); Torie Lima Intractable pain MD Cj Aguilar, Tom Garner Sr., MD Sanders, Sunny Buchanan MD after 02/09/2018 Social History Tobacco Use Types Packs/Day Years [...] Taken Blood Pressure 109/68 08/08/2018 4:30 PM HEDDLE MACHINE OPERATOR Pulse 105 08/08/2018 4:30 PM HEDDLE MACHINE OPERATOR Temperature 36.6 C (97.9 F) 08/08/2018 3:40 PM HEDDLE MACHINE OPERATOR Respiratory Rate 18 08/08/2018 4:30 PM HEDDLE MACHINE OPERATOR Oxygen Saturation 100% 08/08/2018 3:40 PM HEDDLE MACHINE OPERATOR Inhaled Oxygen Concentration - - Weight 59 kg (130 lb) 08/04/2018 4:30 AM HEDDLE MACHINE OPERATOR Height 167.6 cm (5' 6") 08/04/2018 4:30 AM HEDDLE MACHINE OPERATOR Body Mass Index 20.98 08/04/2018 4:30 AM HEDDLE MACHINE OPERATOR Plan of Treatment Health Maintenance Due Date Last Done Comments INFLUENZA VACCINE 03/05/2019 Procedures Procedure Name Priority Date/Time Associated Comments Diagnosis ESTIMATED GFR Routine 08/08/2018 2:25 Results for this PM HEDDLE MACHINE OPERATOR procedure are in the results section. BASIC METABOLIC PANEL Routine 08/08/2018 2:25 Results for this PM HEDDLE MACHINE OPERATOR procedure are in the results section. US ABDOMINAL Routine 08/08/2018 9:50 Results for this PARACENTESIS IMAGING AM HEDDLE MACHINE OPERATOR procedure are in the results section. ESTIMATED GFR Routine 08/07/2018 4:40 Results for this AM HEDDLE MACHINE OPERATOR procedure are in the results section. BASIC METABOLIC PANEL Routine 08/07/2018 4:40 Results for this AM HEDDLE MACHINE OPERATOR procedure are in the results section. VENOUS BLOOD GAS Routine 08/06/2018 6:42 Results for this PM HEDDLE MACHINE OPERATOR procedure are in the results section. US ABDOMINAL Routine 08/06/2018 2:30 Results for this PARACENTESIS IMAGING PM HEDDLE MACHINE OPERATOR procedure are in the results section. SMEAR REVIEW Routine 08/06/2018 6:45 Results for this AM HEDDLE MACHINE OPERATOR procedure are in the results section. ESTIMATED GFR Routine 08/06/2018 6:45 Results for this AM HEDDLE MACHINE OPERATOR procedure are in the results section. LACTIC ACID LEVEL Routine 08/06/2018 6:45 Results for this AM HEDDLE MACHINE OPERATOR procedure are in the results section. HC COMPLETE BLD COUNT Routine 08/06/2018 6:45 Results for this W/AUTO DIFF AM HEDDLE MACHINE OPERATOR procedure are in the results section. PROTHROMBIN TIME WITH Routine 08/06/2018 6:45 Results for this INR AM HEDDLE MACHINE OPERATOR procedure are in the results section. BASIC METABOLIC PANEL Routine 08/06/2018 6:45 Results for this AM HEDDLE MACHINE OPERATOR procedure are in the results section. PARTIAL THROMBOPLASTIN Routine 08/06/2018 6:45 Results for this TIME (PTT) AM HEDDLE MACHINE OPERATOR procedure are in the results section. LACTIC ACID LEVEL, Timed 08/05/2018 6:00 Results for this SEPSIS - NOW AND REPEAT PM HEDDLE MACHINE OPERATOR procedure are in 2X EVERY 3 HOURS the results section. LACTIC ACID LEVEL, Timed 08/05/2018 3:25 Results for this SEPSIS - NOW AND REPEAT PM HEDDLE MACHINE OPERATOR procedure are in 2X EVERY 3 HOURS the results section. SMEAR REVIEW Routine 08/05/2018 4:35 Results for this AM HEDDLE MACHINE OPERATOR procedure are in the results section. ESTIMATED GFR Routine 08/05/2018 4:35 Results for this AM HEDDLE MACHINE OPERATOR procedure are in the results section. AMMONIA LEVEL Routine 08/05/2018 4:35 Results for this AM HEDDLE MACHINE OPERATOR procedure are in the results section. BASIC METABOLIC PANEL Routine 08/05/2018 4:35 Results for this AM HEDDLE MACHINE OPERATOR procedure are in the results section. HC COMPLETE BLD COUNT Routine 08/05/2018 4:35 Results for this W/AUTO DIFF AM HEDDLE MACHINE OPERATOR procedure are in the results section. US ABDOMINAL STAT 08/04/2018 1:35 Results for this PARACENTESIS IMAGING PM HEDDLE MACHINE OPERATOR procedure are in the results section. XR CHEST 1 VW PORTABLE STAT 08/04/2018 5:19 Results for this AM HEDDLE MACHINE OPERATOR procedure are in the results section. SMEAR REVIEW STAT 08/04/2018 5:00 Results for this AM HEDDLE MACHINE OPERATOR procedure are in the results section. AMMONIA LEVEL STAT 08/04/2018 5:00 Results for this AM HEDDLE MACHINE OPERATOR procedure are in the results section. ESTIMATED GFR STAT 08/04/2018 5:00 Results for this AM HEDDLE MACHINE OPERATOR procedure are in the results section. MAGNESIUM LEVEL STAT 08/04/2018 5:00 Results for this AM HEDDLE MACHINE OPERATOR procedure are in the results section. PARTIAL THROMBOPLASTIN STAT 08/04/2018 5:00 Results for this TIME (PTT) AM HEDDLE MACHINE OPERATOR procedure are in the results section. PROTHROMBIN TIME WITH STAT 08/04/2018 5:00 Results for this INR AM HEDDLE MACHINE OPERATOR procedure are in the results section. HC COMPLETE BLD COUNT STAT 08/04/2018 5:00 Results for this W/AUTO DIFF AM HEDDLE MACHINE OPERATOR procedure are in the results section. COMPREHENSIVE METABOLIC STAT 08/04/2018 5:00 Results for this PANEL AM HEDDLE MACHINE OPERATOR procedure are in the results section. after 02/09/2018 Results Estimated GFR (08/08/2018 2:25 PM HEDDLE MACHINE OPERATOR)Only the most recent of5 resultswithin the time period is included. Estimated GFR 59 (A) mL/min/1.73 [place] Comment: m2 YARSANI THE CatergoryUnitsInterpretation [facility] G1 >=90 Normal or high HOSPITAL G2 60-89Mildly decreased [id number] to moderately decreased [id number] to severely decreased G4 15-29Severely decreased G5 <15Kidney failure The eGFR was calculated using the Chronic Kidney Disease Epidemiology Collaboration (CKD-EPI) equation. Interpretation is based on recommendations of the National Kidney Foundation-Kidney Disease Outcomes Quality Initiative (NKF-KDOQI) published in 2014. Specimen Plasma specimen Performing Organization Address City/State/Zipcode [place] [address], [address] [place] [address] PATHOLOGY AND GENOMIC S MEDICINE [place] [address] [place] [address] [facility] Basic metabolic panel (08/08/2018 2:25 PM HEDDLE MACHINE OPERATOR)Only the most recent of4 resultswithin the time period is included. Sodium 139 135 - 148 mEq/L [facility] Potassium 3.7 3.5 - 5.0 mEq/L [facility] Chloride 107 98 - 112 mEq/L [facility] CO2 17 (L) 24 - 31 mEq/L [facility] Anion gap 15 7 - 15 mEq/L [facility] BUN 20 6 - 20 mg/dL [facility] Creatinine 1.10 (H) 0.50 - 0.90 mg/dL [facility] Glucose 105 (H) 65 - 99 mg/dL [facility] Calcium 9.2 8.3 - 10.2 mg/dL [facility] Specimen Plasma specimen Performing Organization Address City/State/[place]code [place] [address], [address] [place] [address] PATHOLOGY AND GENOMIC S MEDICINE [facility] [address] [place] [address] [facility] US Abdominal Paracentesis Imaging (08/08/2018 9:50 AM HEDDLE MACHINE OPERATOR)Only the most recent of3 resultswithin the time [...] of 5000 ml of cloudy yellow ascites. [id number] Procedure Note Hm Interface, Radiology Results Incoming - 08/08/2018 12:03 PM HEDDLE MACHINE OPERATOR Procedure Ultrasound-guided paracentesis. Clinical Indication Ascites. Anesthesia [...] of 5000 ml of cloudy yellow ascites. [facility]-[id number] Performing Organization Address City/[facility] Cent[facility]ode Phone Number [facility] [address] [place] [address] Venous blood gas (08/06/2018 6:42 PM HEDDLE MACHINE OPERATOR) pH, venous 7.41 7.32 - 7.42 [facility] pCO2, venous 24 (L) 45 - 51 mmHg [facility] pO2, venous 75 (H) 25 - 40 mmHg [facility] Base excess, venous -9 (L) -2 - 2 meq/L [facility] O2 saturation, 95 (H) 40 - 70 % [facility] venous [facility] Bicarbonate, venous 14.5 (L) 21.0 - 28.0 [facility] mmol/L [facility] Specimen Blood Performing Organization Address City/[facility] Centercova [place] Number [place] [address], [address] [place] [address] PATHOLOGY AND GENOMIC S MEDICINE [facility] THE [address] [place] [address] [facility] Smear review (08/06/2018 6:45 AM HEDDLE MACHINE OPERATOR)Only the most recent of3 resultswithin the time period is included. Platelet slide review Decreased (A) [facility] Anisocytosis Moderate [facility] Tear drop cells Occasional [facility] Schistocytes Occasional [facility] Spherocytes Occasional [facility] Specimen Performing Organization Address City/State/Zipcode Phone Number [facility] DEPARTMENT OF [facility] [place] [address] PATHOLOGY AND [facility] THE [address] Partial thromboplastin time, activated (08/06/2018 6:45 AM HEDDLE MACHINE OPERATOR)Only the most recent of2 resultswithin the time period is included. PTT 42.1 (H) 23.0 - 36.0 KEITH MCWILLIAMS Comment: [facility] PTT therapeutic range for unfractionated heparin is HOSPITAL 61.0-112.0 seconds which corresponds to Anti-Xa 0.3-0.7 U/ml. Specimen Blood Performing Organization Address City/[facility] Centercode Phone Number [facility] DEPARTMENT OF [facility] [address] [place] [address] [address] Prothrombin time with INR (08/06/2018 6:45 AM HEDDLE MACHINE OPERATOR)Only the most recent of2 resultswithin the time period is included. Prothrombin time 15.2 (H) 11.5 - 14.5 [place] sec [facility] INR 1.2 [place] Comment: YARSANI THE The International Normalized Ratio (INR) is a therapeutic [facility] monitoring tool for patients who are stable on oral HOSPITAL anticoagulant therapy. An INR of 2.0-3.0 is suggested for deep vein thrombosis/pulmonary embolism. Specimen Blood Performing Organization Address City/[facility]/Zipcode Phone Number [facility] DEPARTMENT OF [facility] [place] [address] PATHOLOGY AND [facility] THE [address] [address] CBC with platelet and differential (08/06/2018 6:45 AM HEDDLE MACHINE OPERATOR)Only the most recent of3 resultswithin the time period is included. WBC 3.27 (L) 4.50 - 11.00 [place] k/uL [facility] RBC 2.52 (L) 4.20 - 5.50 [place] m/uL [facility] HGB 7.7 (L) 12.0 - 16.0 [place] g/dL [facility] HCT 24.6 (L) 37.0 - 47.0 % [facility] MCV 97.6 82.0 - 100.0 [place] fL [facility] MCH 30.6 27.0 - 34.0 pg [facility] MCHC 31.3 31.0 - 37.0 [place] g/dL [facility] RDW - SD 72.1 (H) 37.0 - 55.0 fL [facility] MPV 10.3 8.8 - 13.2 fL [facility] Platelet count 115 (L) 150 - 400 k/uL [facility] Nucleated RBC 0.00 /100 WBC [facility] Neutrophils 72.2 (H) 39.0 - 69.0 % [facility] Lymphocytes 6.7 (L) 25.0 - 45.0 % [facility] Monocytes 14.4 (H) 0.0 - 10.0 % [facility] Eosinophils 4.9 0.0 - 5.0 % [facility] Basophils 1.5 (H) 0.0 - 1.0 % [facility] Immature granulocytes 0.3Comment: 0.0 - 1.0 % [place] "Immature [facility] granulocytes"[facility] (promyelocytes HOSPITAL , myelocytes, metamyelocytes ) Specimen Blood Performing Organization Address City/[facility]/Zipcode Phone Number [place] [address], [address] [place] [address] PATHOLOGY AND GENOMIC S MEDICINE [facility] [place] [address] [place] [phone] Lactic acid level (08/06/2018 6:45 AM HEDDLE MACHINE OPERATOR) Lactic acid 1.6 0.5 - 2.2 mmol/L [facility] Specimen Plasma specimen Performing Organization Address City/[facility] Centercode Phone Number [facility] DEPARTMENT [place] [address], [address] [place] [address] PATHOLOGY AND GENOMIC S MEDICINE [facility] THE [address] [place] [phone] Lactic acid level, SEPSIS - Now and repeat 2x every 3 hours (08/05/2018 6:00 PM HEDDLE MACHINE OPERATOR)Only the most recent of2 resultswithin the time period is included. Lactic acid 1.5 0.5 - 2.2 mmol/L [facility] Specimen Plasma specimen Performing Organization Address City/[facility]/Zipcode Phone Number [facility] [place] [address], [address] [place] [address] PATHOLOGY AND GENOMIC S MEDICINE [facility] THE [address] [address] [place] [phone] [place] [address] Ammonia level (08/05/2018 4:35 AM HEDDLE MACHINE OPERATOR)Only the most recent of2 resultswithin the time period is included. Ammonia 276 (H) 11 - 51 umol/L [facility] Specimen Blood Performing Organization Address [facility] [facility] Centercova Phone Number [facility] [place] [address], [address] [place] [address] PATHOLOGY AND GENOMIC S MEDICINE [facility] THE [address] [place] [address] [place] [address] XR Chest 1 Vw Portable (08/04/2018 5:19 AM HEDDLE MACHINE OPERATOR) Specimen Narrative Performed At Examination:XR CHEST 1 VW PORTABLE RADIANT Clinical History:sob Comparison: None. Technique: Single frontal view of the chest is obtained. Findings: Low lung volume with vascular crowding is noted. The heart size is normal. No pleural effusion is seen. Impression: Low lung volume but no acute infiltrate. [facility]-[id number] Procedure Note Hm Interface, Radiology Results Incoming - 08/04/2018 5:46 AM HEDDLE MACHINE OPERATOR Examination: XR CHEST 1 VW PORTABLE Clinical History: sob Comparison: None. Technique: Single frontal view of the chest is obtained. Findings: Low lung volume with vascular crowding is noted. The heart size is normal. No pleural effusion is seen. Impression: Low lung volume but no acute infiltrate. [facility]-[id number] Performing Organization Address City/[facility]/Zipcode Phone Number [facility] [address] [place] [address] Magnesium level (08/04/2018 5:00 AM HEDDLE MACHINE OPERATOR) Magnesium 1.9 1.6 - 2.6 mg/dL [facility] Specimen Plasma specimen Performing Organization Address City/State/Zipcode [place] [address], [address] [place] [address] PATHOLOGY AND GENOMIC S MEDICINE [facility] THE [address] [place] [address] [facility] Comprehensive metabolic panel (08/04/2018 5:00 AM HEDDLE MACHINE OPERATOR) Sodium 137 135 - 148 [place] mEq/L [facility] Potassium 3.8 3.5 - 5.0 [place] mEq/L [facility] Chloride 109 98 - 112 [place] mEq/L [facility] CO2 13 (LL) 24 - 31 mEq/L [place] Comment: YARSANI THE CO2 Results called to and read back by FISH VIEYRA RN/ED at [id number] [facility] by [facility]. HOSPITAL Anion gap 15 7 - 15 mEq/L [facility] BUN 23 (H) 6 - 20 mg/dL [facility] Creatinine 1.65 (H) 0.50 - 0.90 [place] mg/dL [facility] Glucose 94 65 - 99 mg/dL [facility] Calcium 8.6 8.3 - 10.2 [place] mg/dL [facility] Protein 7.0 6.3 - 8.3 [place] Comment: g/dL YARSANI THE [place] 4.6-7.0 g/dL [facility] 1 week 4.4-7.6 g/dL HOSPITAL 7 months-1year5.1-7.3 g/dL 1-2 years5.6-7.5 g/dL >3 years6.0-8.0 g/dL 18-150 6.3-8.3 g/dL Albumin 3.1 (L) 3.5 - 5.0 [place] g/dL [facility] A/G ratio 0.8 0.7 - 3.8 [facility] Alkaline phosphatase 147 (H) 35 - 104 U/L [facility] AST 66 (H) 10 - 35 U/L [facility] ALT 36 5 - 50 U/L [facility] Total bilirubin 1.0 0.0 - 1.2 [place] mg/dL [facility] Specimen Plasma specimen Performing Organization Address City/State/Zipcode [place] Number [place] [address], [address] [place] [address] PATHOLOGY AND GENOMIC S MEDICINE KEITH MCWILLIAMS THE [address] [place] [address] [facility] after 02/09/2018 Advance Directives Patient has advance care planning documents on file. For more information, please contact:Keith Mcwilliams[address] [place] [address]
--- OUTSIDE RECORDS SUMMARY | 2019-02-10 10:47 | XMS REPORT | Clinical Summary ---
:1970 Author Organization [facility] Address [address] [place] [address] Care Team Providers Name Role Phone Tray [...] Date Type Specialty Care Team Description 12/06/2018 [facility] Internal Shamsee, Portal hypertension (HCC); - Encounter Medicine Richard-Filiberto Decompensated hepatic cirrhosis (HCC); 12/08/2018 MD Lupillo Other ascites; Lino, Ascites due to alcoholic cirrhosis (HCC); Lionel Brady, Screening for malignant neoplasm; Immunization counseling; Esophageal varices without bleeding, unspecified esophageal varices type (HCC); Portal hypertensive gastropathy (HCC) 07/24/2018 [facility] Radiology Alison Kebede, No Show Encounter 07/09/2018 [facility] Radiology Alison Kebede, No Show Encounter [...] M, RN call- 24-48hr f/u call) 05/23/2018 [facility] Internal [place], Hepatic encephalopathy (HCC) (Primary Dx); [...] Roxy Anderson MD 02/11/2018 Surgery Tamera Mayorga HERNIORRHAPHY,UMBILICA MD Nelson L 02/10/2018 Anesthesia Event Gastroenterology Rafael Almaguer MD 02/10/2018 Surgery Gastroenterology Raul, Suneal UPPER ENDOSCOPY MD Chanel 02/10/2018 [facility] Internal Naresh Alvarado Alcoholic cirrhosis of liver [...] Naresh Alvarado GI Bleeding MD Kavya after 02/09/2018 Social History Tobacco Use Types [...] 434 ms QTC Calculation(Bazett) 554 ms P [place] 71 degrees R [place] 36 degrees [place] 61 degrees Normal sinus rhythm Nonspecific ST [...] 436 ms QTC Calculation(Bazett) 515 ms [place] 94 degrees R [place] 24 degrees [place] 27 degrees Normal sinus rhythm Low voltage [...] 430 ms QTC Calculation(Bazett) 517 ms R [place] 30 degrees [place] 20 degrees Accelerated Junctional rhythm Septal infarct [...] 0 ms QTC Calculation(Bazett) 0 ms R [place] 0 degrees [place] 0 degrees No QRS complexes found, no [...] in the results section. after 02/09/2018 Results TRANSFUSION SERVICE REPORT - SCAN (12/09/2018 6:15 PM CDT)Only the most recent of10 resultswithin the time period is included. Narrative Performed At EKG-SCANNED (12/09/2018 1:00 PM CDT) Narrative Performed At Prepare Leuko-Red RBC (12/08/2018 11:54 PM CDT)Only the most recent of3 resultswithin the time period is included. CROSSMATCH COMPATIBLE SAFETRACE TX Unit ABO O Pos SAFETRACE TX UNIT NUMBER [id number] [facility]AF[place]ACE TX Status TX_TIMEINCHART [facility]AF[place]ACE TX Blood Bank Product RED BLOOD CELLS SAFETRACE TX PRODUCT CODE [id number] SAFETRACE TX CROSSMATCH COMPATIBLE SAFETRACE TX Unit ABO O Pos SAFETRACE TX UNIT NUMBER [id number] SAFETRACE TX Status TX_TIMEINCHART SAFETRACE TX Blood Bank Product RED BLOOD CELLS [place] PRODUCT CODE [id number] [place] Specimen Other Performing Organization Address City/State/Zipcode Phone Number [place] CBC with platelet count + automated diff (12/08/2018 4:31 AM CDT)Only the most recent of14 resultswithin the time period is included. WBC 4.3 3.5 - 10.5 K/L [facility] RBC 2.91 (L) 3.93 - 5.22 M/L [facility] Hemoglobin 8.1 (L) 11.2 - 15.7 GM/DL [facility] Hematocrit 25.6 (L) 34.1 - 44.9 % [facility] MCV 88.0 79.4 - 94.8 fL [facility] MCH 27.8 25.6 - 32.2 pg [facility] MCHC 31.6 (L) 32.2 - 35.5 GM/DL [facility] RDW 16.3 (H) 11.7 - 14.4 % [facility] Platelets 129 (L) 150 - 450 K/CU MM [facility] MPV 11.5 9.4 - 12.3 fL [facility] nRBC 0 0 - 0 /100 WBC [facility] % Neutros 71 % [facility] % Lymphs 6 % [facility] % Monos 14 % [facility] % Eos 7 % [facility] % Baso 1 % [facility] # Neutros 3.07 1.56 - 6.13 K/L [facility] # Lymphs 0.27 (L) 1.18 - 3.74 K/L [facility] # Monos 0.60 (H) 0.24 - 0.36 K/L [facility] # Eos 0.29 0.04 - 0.36 K/L [facility] # Baso 0.06 0.01 - 0.08 K/L [facility] Immature Granulocytes-Relative 0 0 - 1 % [facility] Specimen Blood Performing Organization Address City/[facility]/Zipcode Phone Number [address] [address] [phone] CENTER Basic Metabolic Panel (12/08/2018 4:31 AM CDT)Only the most recent of10 resultswithin the time period is included. Sodium 133 (L) 136 - 145 meq/L [facility] Potassium 3.0 (L) 3.5 - 5.1 meq/L [facility] Chloride 107 98 - 107 meq/L [facility] CO2 18 (L) 22 - 29 meq/L [facility] BUN 15 7 - 21 mg/dL [facility] Creatinine 0.93 0.57 - 1.25 mg/dL [facility] Glucose 94 70 - 105 mg/dL [facility] Calcium 8.1 (L) 8.4 - 10.2 mg/dL [facility] EGFR 64Comment: ESTIMATED GFR IS mL/min/1.73 sq m [facility] NOT ACCURATE [facility] CLEARANCE IN PREDICTING GLOMERULAR FILTRATION RATE. ESTIMATED GFR IS NOT APPLICABLE FOR DIALYSIS PATIENTS. Specimen Blood Performing Organization Address City/State/Zipcode Phone Number [facility] [address] [place] [address] [phone] CENTER Transfuse Leuko-Red RBC (12/07/2018 6:10 AM CDT)Only the most recent of8 resultswithin the time period is included.Type and screen, automated (2018 6:10 PM CDT)Only the most recent of3 resultswithin the time period is included. ABO/RH AUTOMATED (BEAKER) O POSITIVE [facility] Ab Scrn NEGATIVE [facility] Specimen Blood Performing Organization Address City/State/Zipcode Phone Number [facility] [address] [place], [place] [phone] US paracentesis (12/06/2018 5:43 PM CDT)Only the most recent of4 resultswithin the time period is included. Specimen Narrative Performed At FINAL REPORT GE RIS Paracentesis dated 12/06/2018 Procedure: Ultrasound-guided paracentesis. Preprocedure diagnosis: Ascites Postprocedure diagnosis: Ascites Conscious sedation: None. Radiologist: Laure Jules M.D. Contract Mail Carrier: None Anesthesia: 1% Xylocaine mixed with sodium bicarbonate local anesthesia. Technique: After obtaining informed consent, ultrasound-guided paracentesis was performed under usual sterile technique. Using a 5 barbadian drainage catheter, puncture was made in the right lower quadrant abdomen. Approximately 11,500 cc of serous fluid was removed. Patient tolerated the procedure well without complication. Complication: None Graft/Implant: None Estimated Blood Loss: None Impression: Ultrasound-guided paracentesis. Signed: Laure Jules MD Report Verified Date/Time:12/06/2018 17:49:10 Reading Location: [facility] B1 C013W Consult Reading Room Procedure Note Interface, External Ris In - 12/06/2018 5:55 PM CDT FINAL REPORT Paracentesis dated 12/06/2018 Procedure: Ultrasound-guided paracentesis. Preprocedure diagnosis: Ascites Postprocedure diagnosis: Ascites Conscious sedation: None. Radiologist: Laure Jules M.D. Contract Mail Carrier: None Anesthesia: 1% Xylocaine mixed with sodium bicarbonate local anesthesia. Technique: After obtaining informed consent, ultrasound-guided paracentesis was performed under usual sterile technique. Using a 5 barbadian drainage catheter, puncture was made in the right lower quadrant abdomen. Approximately 11,500 cc of serous fluid was removed. Patient tolerated the procedure well without complication. Complication: None Graft/Implant: None Estimated Blood Loss: None Impression: Ultrasound-guided paracentesis. Signed: Laure Jules MD Report Verified Date/Time: 12/06/2018 17:49:10 Reading Location: [facility] [id number] Consult Reading Room Performing Organization Address [facility] Phone Number [facility] aPTT (12/06/2018 2:49 PM CDT)Only the most recent of3 resultswithin the time period is included. PTT 35.9 22.5 - 36.0 seconds [facility] Specimen Blood Performing Organization Address [facility] Phone Number [address] [address] CENTER Prothrombin time/INR (12/06/2018 2:49 PM CDT)Only the most recent of4 resultswithin the time period is included. Protime 16.7 (H) 11.7 - 14.7 seconds [facility] INR 1.4 <=5.9 [facility] Specimen Blood Narrative Performed At RECOMMENDED COUMADIN/WARFARIN INR THERAPY [facility] RANGES STANDARD DOSE: 2.0 - 3.0 Includes: PROPHYLAXIS for venous thrombosis, systemic embolization; TREATMENT for venous thrombosis and/or pulmonary embolus. HIGH RISK: Target INR is 2.5-3.5 for patients with mechanical heart valves. Performing Organization Address [facility] Phone Number [address] [address] CENTER B-type Natriuretic Factor (BNP) (12/06/2018 12:42 PM CDT) BNP 45 0 - 100 pg/mL [facility] Specimen Blood Performing Organization Address City/State/Zipcode Phone Number [facility] [address] [place] [address] CENTER Ammonia (12/06/2018 12:42 PM CDT)Only the most recent of4 resultswithin the time period is included. Ammonia 62 18 - 72 mol/L [facility] Specimen Blood Performing Organization Address City/State/Zipcode Phone Number [facility] [address] [place] [address] [place] Comprehensive metabolic panel (12/06/2018 12:42 PM CDT)Only the most recent of5 resultswithin the time period is included. Protein, Total 6.6 6.0 - 8.3 gm/dL [facility] Albumin 3.3 (L) 3.5 - 5.0 g/dL [facility] Alkaline Phosphatase 152 (H) 40 - 150 U/L [facility] Total Bilirubin 1.3 (H) 0.2 - 1.2 mg/dL [facility] Sodium 135 (L) 136 - 145 meq/L [facility] Potassium 4.5 3.5 - 5.1 meq/L [facility] Chloride 112 (H) 98 - 107 meq/L [facility] CO2 15 (L) 22 - 29 meq/L [facility] BUN 11 7 - 21 mg/dL [facility] Creatinine 0.70 0.57 - 1.25 mg/dL [facility] Glucose 85 70 - 105 mg/dL [facility] Calcium 8.3 (L) 8.4 - 10.2 mg/dL [facility] AST 42 (H) 5 - 34 U/L [facility] ALT 18 6 - 55 U/L [facility] EGFR 89Comment: ESTIMATED GFR mL/min/1.73 sq m [facility] IS NOT ACCURATE [facility] CREATININE CLEARANCE IN PREDICTING GLOMERULAR FILTRATION RATE. ESTIMATED GFR IS NOT APPLICABLE FOR DIALYSIS PATIENTS. Specimen Blood Performing Organization Address City/[facility]/Zipcode Phone Number [facility] [address] [place] [address] [phone] CENTER Body fluid culture (05/26/2018 3:20 PM CDT)Only the most recent of2 resultswithin the time period is included. Result No growth [facility] Gram Stain Result 2+ WBCs [facility] Gram Stain Result No organisms seen [facility] Specimen Body Fluid Performing Organization Address [facility] Phone Number [facility] [address] [place] [address] Body fluid cell count with differential (05/26/2018 3:20 PM CDT)Only the most recent of2 resultswithin the time period is included. Appearance Hazy (A) Clear [facility] Color Straw Colorless, Straw [facility] RBCs 1,220 (H) <=1 /uL [facility] Adjusted WBC Count 193 (H) <=5 /cu mm [facility] Lining Cells 14 (H) <=1 /cu mm [facility] % Segs 44 % [facility] % Lymphs 26 % [facility] % Monos 30 % [facility] % Eos 0 % [facility] % Baso 0 % [facility] Interpretation Negative for malignant [facility] cells. Pathologist: Stanislav Sofia M.D. [facility] (electronic signature) Container Body Fluid Sterile Cup [facility] Specimen Body Fluid Performing Organization Address [facility] Phone Number [facility] [address] [place] [address] [phone] Potassium (05/26/2018 5:16 AM CDT)Only the most recent of3 resultswithin the time period is included. Potassium 3.7 3.5 - 5.5 meq/L [facility] Specimen Blood Performing Organization Address [facility] Cent[facility] Phone Number [facility] [address] [place], [place] [phone] Magnesium (05/26/2018 5:16 AM CDT)Only the most recent of7 resultswithin the time period is included. Magnesium 2.1 1.5 - 3.0 mg/dL [facility] Specimen Blood Performing Organization Address [facility] Phone Number [facility] [address] [place] [address] Occult blood, stool (05/24/2018 1:38 PM CDT) Occult blood Positive (A) Negative [facility] Specimen Stool Performing Organization Address [facility] Phone Number [facility] [id number] [place] [address] [phone] Sodium, random urine (05/24/2018 1:38 PM CDT)Only the most recent of2 resultswithin the time period is included. Sodium Urine 28 meq/L [facility] Specimen Urine Narrative Performed At [facility] Reference Range: No Normals Performing Organization Address [facility] Phone Number [facility] [address] [place] [address] [phone] Creatinine, random urine (05/24/2018 1:38 PM CDT)Only the most recent of2 resultswithin the time period is included. Creatinine, Ur 42.7 mg/dL [facility] Specimen Urine Narrative Performed At [facility] Reference Range: No Normals Performing Organization Address [facility] Phone Number [facility] [address] [place] [address] Alpha fetoprotein (AFP), tumor marker (05/24/2018 1:36 PM CDT) Alpha-Fetoprotein 5.5 <10.0 ng/mL [facility] Specimen Blood Performing Organization Address [facility] Phone Number [place] [phone] [place] [address] CENTER Hepatitis panel, acute (05/24/2018 1:36 PM CDT) Hep A IgM Nonreactive Nonreactive [facility] Hep B C IgM Nonreactive Nonreactive [facility] Hepatitis C Ab Nonreactive Nonreactive [facility] hepatitis B Surface Ag Nonreactive Nonreactive [facility] Specimen Blood Performing Organization Address City/State/Zipcode Phone Number [facility] [address] [place] [address] CENTER US renal complete (05/24/2018 11:37 AM CDT) Specimen Narrative Performed At FINAL REPORT [facility] RENAL ULTRASOUND HISTORY: Acute kidney injury [...] MD Report Verified Date/Time:05/24/2018 11:53:08 Reading Location: [address] Reading Room Procedure Note Interface, External [...] Report Verified Date/Time: 05/24/2018 11:53:08 Reading Location: [facility] C0[facility] Transitional Reading Room Performing Organization Address City/State/Zipcode Phone Number iHydroRun CT brain without IV contrast (05/23/2018 5:55 PM CDT) Specimen Narrative Performed At FINAL REPORT [facility]HydroRun CT head without contrast 05/23/2018 5:55 PM [...] MD Report Verified Date/Time:05/23/2018 17:56:33 Reading Location: [facility] Radiology Reading Room Procedure Note Interface, External [...] Report Verified Date/Time: 05/23/2018 17:56:33 Reading Location: [facility] Radiology Reading Room Performing Organization Address [facility] Phone Number GE RIS XR chest 1 view portable / bedside (05/23/2018 4:25 PM CDT) Specimen Narrative Performed At FINAL REPORT GE RIS CHEST AP PORTABLE History provided: Altered mental status Heart size normal. Lungs clear and vascularity normal. IMPRESSION: Clear chest. Signed: Gonzalo Serrano MD Report Verified Date/Time:05/23/2018 16:22:47 Reading Location: [facility] Radiology Reading Room Procedure Note Interface, External Ris In - 05/23/2018 4:45 PM CDT FINAL REPORT CHEST AP PORTABLE History provided: Altered mental status Heart size normal. Lungs clear and vascularity normal. IMPRESSION: Clear chest. Signed: Gonzalo Serrano MD Report Verified Date/Time: 05/23/2018 16:22:47 Reading Location: [facility] Radiology Reading Room Performing Organization Address [facility] Phone Number GE RIS ECG 12 lead (05/23/2018 3:52 PM CDT)Only the most recent of3 resultswithin the time period is included. Specimen Narrative Performed At Ventricular Rate 98 BPM GE MUSE Atrial Rate 98 BPM P-R Interval 136 ms QRS Duration 74 ms Q-T Interval 434 ms QTC Calculation(Bazett) 554 ms P [place] 71 degrees R [place] 36 degrees [place] 61 degrees Normal sinus rhythm Nonspecific ST abnormality Prolonged QT Abnormal ECG No previous ECGs available Procedure Note Interface, External Ris In - 05/26/2018 4:49 PM CDT Ventricular Rate 98 BPM Atrial Rate 98 BPM P-R Interval 136 ms QRS Duration 74 ms Q-T Interval 434 ms QTC Calculation(Bazett) 554 ms P [place] 71 degrees R [place] 36 degrees T [place] 61 degrees Normal sinus rhythm Nonspecific ST abnormality Prolonged QT Abnormal ECG No previous ECGs available Performing Organization Address [facility] Phone Number GE MUSE Urinalysis w/Microscopic (05/23/2018 3:47 PM CDT) Color, UA Yellow [facility] Clarity, UA Hazy [facility] Specific Mcloud, UA 1.016 1.001 - 1.035 [facility] pH, UA 5.0 5.0 - 8.0 [facility] Protein, UA Negative Negative [facility] Glucose, UA Negative Negative [facility] Ketones, UA Negative Negative [facility] Bilirubin, UA Negative Negative [facility] Blood, UA Negative Negative [facility] Nitrite, UA Negative Negative [facility] Leukocytes, UA Negative Negative [facility] Urobilinogen, UA <1.0 0.2 - 1.0 mg/dL [facility] RBC, UA 1 /HPF [facility] WBC, UA 1 /HPF [facility] Bacteria, UA Rare [facility] Mucus Rare [facility] Squam Epithel, UA <1 /HPF [facility] Hyaline Casts, UA 4 /LPF [facility] Specimen Source [facility] Specimen Urine - Urine, Straight Catheter Performing Organization Address [facility] Phone Number [facility] [address] [place] [address] Urine culture (05/23/2018 3:47 PM CDT) Result No growth [facility] Specimen Urine - Urine, Straight Catheter Performing Organization Address [facility] Phone Number [facility] [address] [place] [address] [phone] Blood culture (05/23/2018 3:39 PM CDT)Only the most recent of4 resultswithin the time period is included. Result No growth in 5 days [facility] Specimen Blood Performing Organization Address [facility] Phone Number [facility] [address] [place] [address] Lactic acid, venous, whole blood (05/23/2018 3:38 PM CDT)Only the most recent of2 resultswithin the time period is included. Lactate, Venous 2.0Comment: Specimen moderately 0.5 - 2.2 mmol/L [facility] hemolyzed Specimen Blood Narrative Performed At [facility] Effective 12/07/2015: Units/Reference Range Change New: 0.5-2.2 mmol/LPrevious: 5-20 mg/dL Performing Organization Address [facility] Phone Number [facility] [address] [place] [address] [phone] Lipase (05/23/2018 3:38 PM CDT)Only the most recent of2 resultswithin the time period is included. Lipase 82 (H) 8 - 78 U/L [facility] Specimen Blood Performing Organization Address [facility] Phone Number [facility] [address] [place] [address] [phone] RHYTHM STRIP - SCAN (02/18/2018 10:30 AM CDT) Narrative Performed At POC-Glucose meter (02/15/2018 11:14 AM CDT)Only the most recent of17 resultswithin the time period is included. POC-Glucose Meter 119 (H)Comment: TESTED AT 70 - 110 mg/dL [address] [address] Specimen Blood Performing Organization Address [facility] Phone Number [address] [address] CENTER CBC (Hemogram only) (02/15/2018 5:05 AM CDT)Only the most recent of3 resultswithin the time period is included. WBC 5.1 3.5 - 10.5 K/L [facility] RBC 2.79 (L) 3.93 - 5.22 M/L [facility] Hemoglobin 8.8 (L) 11.2 - 15.7 GM/DL [facility] Hematocrit 27.2 (L) 34.1 - 44.9 % [facility] MCV 97.5 (H) 79.4 - 94.8 fL [facility] MCH 31.5 25.6 - 32.2 pg [facility] MCHC 32.4 32.2 - 35.5 GM/DL [facility] RDW 18.8 (H) 11.7 - 14.4 % [facility] Platelets 86 (L) 150 - 450 K/CU MM [facility] MPV 12.6 (H) 9.4 - 12.3 fL [facility] nRBC 0 0 - 0 /100 WBC [facility] Specimen Blood Performing Organization Address City/[facility]/Zipcode Phone Number [address] [address] [phone] CENTER Phosphorus (02/15/2018 5:05 AM CDT)Only the most recent of6 resultswithin the time period is included. Phosphorus 3.5 2.3 - 4.7 mg/dL [facility] Specimen Blood Performing Organization Address City/[facility]/Zipcode Phone Number [address] [address] [phone] CENTER Hepatic function panel (02/15/2018 5:05 AM CDT)Only the most recent of5 resultswithin the time period is included. Protein, Total 6.3 6.0 - 8.3 gm/dL [facility] Albumin 3.9 3.5 - 5.0 g/dL [facility] Total Bilirubin 1.7 (H) 0.2 - 1.2 mg/dL [facility] Bilirubin, Direct 1.0 (H) 0.1 - 0.5 mg/dL [facility] Alkaline Phosphatase 126 40 - 150 U/L [facility] AST 118 (H) 5 - 34 U/L [facility] ALT 56 (H) 6 - 55 U/L [facility] Specimen Blood Performing Organization Address City/[facility]/Zipcode Phone Number [facility] [address] [place] [phone] CENTER Prepare RBC (02/12/2018 11:54 PM CDT) CROSSMATCH COMPATIBLE [place]AFET[place] Unit ABO O Pos SAFET[facility] TX UNIT NUMBER [id number] [place] Status RETURNED FROM ISSUE [facility] [place] Blood Bank Product RED BLOOD CELLS [facility]AF[facility] [place] PRODUCT CODE [id number] [place]AF[place] [place] CROSSMATCH COMPATIBLE SAFETRACE TX Unit ABO O Pos SAFETRACE TX UNIT NUMBER [id number] [facility] TX Status TRANSFUSED [facility] [place] Blood Bank Product RED BLOOD CELLS [facility] [place] PRODUCT CODE [id number] [place]AF[place] TX Performing Organization Address City/[facility] Phone Number SAF[facility] [place] HIV-1 Antigen with HIV-1/2 Antibody (02/12/2018 5:29 AM CDT) HIV-1 Antigen with HIV 1&2 Nonreactive Nonreactive [facility] Specimen Blood Performing Organization Address City/[facility] Cent[facility]ode Phone Number [address] [address] CENTER PT/aPTT (02/11/2018 3:47 PM CDT)Only the most recent of2 resultswithin the time period is included. Protime 18.7 (H) 11.7 - 14.7 seconds [facility] INR 1.6 <=5.9 [facility] PTT 36.5 (H) 22.5 - 36.0 seconds [facility] Specimen Blood Narrative Performed At [facility] RECOMMENDED COUMADIN/WARFARIN INR THERAPY RANGES STANDARD DOSE: 2.0 - 3.0 Includes: PROPHYLAXIS for venous thrombosis, systemic embolization; TREATMENT for venous thrombosis and/or pulmonary embolus. HIGH RISK: Target INR is 2.5-3.5 for patients with mechanical heart valves. Performing Organization Address [facility]/Zipcode Phone Number [address] [address] [place] Tissue Exam (02/11/2018 1:38 PM CDT) Case Report Surgical Pathology Report Case: [id number] [facility] Authorizing Provider:Tamera Mayorga MD Collected: 02/11/2018 1338 MEDICAL CENTER Ordering Location: [place] [address] ICUReceived: 02/11/2018 1613 Pathologist: Herminia Hope MD Specimen:Hernia Sac, Umbilical DIAGNOSIS SKIN AND HERNIA SAC, EXCISION: [facility] - SKIN WITH ULCER, NECROSIS, HERNIA WITH FIBROSIS, ADHESION AND CHRONIC INFLAMMATION [facility] Signing Pathologist Direct Phone Line: [phone] CPT Code(s) 22238 [facility] CLINICAL HISTORY Incarcerated umbilical [facility] hernia MEDICAL CENTER SPECIMEN SOURCE Hernia sac umbilical [facility] GROSS DESCRIPTION The specimen is [...] areas of suspicion. CG/ew MICROSCOPIC DESCRIPTION Performed [facility] Specimen Tissue - Hernia Sac, Umbilical Performing Organization Address [facility]/Zipcode Phone Number [address] [address] CENTER AFB culture + smear (02/11/2018 1:34 PM CDT) Result No acid-fast bacilli isolated in [facility] 42 days CENTER AFB Smear No acid fast bacilli seen [facility] Specimen Wound Performing Organization Address [facility]/Zipcode Phone Number [address] [address] [place] Anaerobic culture (02/11/2018 1:34 PM CDT) Result No anaerobes isolated [facility] Specimen Wound Performing Organization Address [facility] Centerconj Phone Number [address] [address] [place] Surgically obtained culture + gram stain (02/11/2018 1:34 PM CDT) Result No growth [facility] Gram Stain Result <1+ WBCs [facility] Gram Stain Result No organisms seen [facility] Specimen Wound Performing Organization Address [facility] Phone Number [address] [address] [phone] [place] Fungus culture + smear (02/11/2018 1:34 PM CDT) Result No fungus isolated in 28 days [facility] Fungus Smear No fungi seen [facility] Specimen Wound Performing Organization Address [facility] Phone Number [address] [address] [place] SPIN/CONCENTRATION CHARGE (02/11/2018 1:34 PM CDT) Concentration charged Done [facility] Specimen Wound Performing Organization Address [facility] Phone Number [address] [address] [place] Potassium-Stat Lab (02/11/2018 1:21 PM CDT) Potassium 3.9 3.6 - 5.5 meq/L [facility] Specimen Other Narrative Performed At THIS IS A VENOUS SAMPLE [facility] THIS IS A VENOUS SAMPLE THIS IS A VENOUS SAMPLE Performing Organization Address [facility] Phone Number [address] [address] [place] Sodium Na-Stat Lab (02/11/2018 1:21 PM CDT) Sodium 135 135 - 148 meq/L [facility] Specimen Other Narrative Performed At THIS IS A VENOUS SAMPLE [facility] THIS IS A VENOUS SAMPLE THIS IS A VENOUS SAMPLE Performing Organization Address [facility] Phone Number [address] [address] [phone] [place] Glucose-Stat Lab (02/11/2018 1:21 PM CDT) Glucose 122 (H) 70 - 110 mg/dL [facility] Specimen Other Narrative Performed At THIS IS A VENOUS SAMPLE [facility] THIS IS A VENOUS SAMPLE THIS IS A VENOUS SAMPLE Performing Organization Address [facility] Phone Number [address] [address] [place] HGB/HCT (H&H)-Stat Lab (02/11/2018 1:21 PM CDT) Hemoglobin 8.7 (L) 12.0 - 15.0 g/dL [facility] Hematocrit 26.0 (L) 36.0 - 45.0 % [facility] Specimen Other Narrative Performed At THIS IS A VENOUS SAMPLE [facility] Performing Organization Address [facility] Phone Number [address] [address] [phone] [place] Calcium, Ionized (02/11/2018 1:21 PM CDT) Calcium, Ion 1.07 (L) 1.12 - 1.27 mmol/L [facility] pH, Blood 7.28 [facility] Specimen Blood Performing Organization Address [facility] Centercon[facility] Phone Number [address] [address] [phone] [place] US abdomen complete (02/11/2018 6:57 AM CDT) Specimen Narrative Performed At FINAL REPORT [facility] Abdominal Ultrasound Clinical Diagnosis: Ascites acute [...] MD Report Verified Date/Time:02/11/2018 09:32:36 Reading Location: [address] Ultrasound Reading Room Procedure Note Interface, [...] Report Verified Date/Time: 02/11/2018 09:32:36 Reading Location: [place] [id number] Ultrasound Reading Room Performing Organization Address City/State/Zipcode Phone Number [facility] CT abdomen/pelvis without iv contrast (02/11/2018 12:01 AM CDT) Specimen Narrative Performed At FINAL REPORT [facility] HISTORY : Hernia, complicated Technique: Multiple axial [...] MD Report Verified Date/Time:02/11/2018 07:50:19 Reading Location: [facility] Diagnostic Imaging Reading Room - [place] [address] Procedure Note Interface, External Ris In - [...] Report Verified Date/Time: 02/11/2018 07:50:19 Reading Location: [facility] Diagnostic Imaging Reading Room - [place] [address] Performing Organization Address [facility] Phone Number RIS Protein, random urine (02/10/2018 6:15 PM CDT) Protein, Urine 19 (H) 0 - 14 mg/dL [facility] Specimen Urine Performing Organization Address [facility] Phone Number [address] [address] [place] Screen, urine (02/10/2018 6:14 PM CDT) Preg Test, Ur Negative [facility] Specimen Urine Performing Organization Address [facility] Phone Number [address] [address] [place] REPORT OF PROCEDURE - ENDOSCOPY URL (02/10/2018 4:35 PM CDT) Narrative Performed At Urinalysis w/Microscopic + Reflex to Culture (02/10/2018 4:08 AM CDT) Color, UA Yellow [facility] Clarity, UA Hazy [facility] Specific Mcloud, UA 1.013 1.001 - 1.035 [facility] pH, UA 6.0 5.0 - 8.0 [facility] Protein, UA 10 mg/dL (A) Negative [facility] Glucose, UA Negative Negative [facility] Ketones, UA Trace (A) Negative [facility] Bilirubin, UA Negative Negative [facility] Blood, UA Negative Negative [facility] Nitrite, UA Negative Negative [facility] Leukocytes, UA Negative Negative [facility] Urobilinogen, UA 0.2 0.2 - 1.0 mg/dL [facility] RBC, UA <1 /HPF [facility] WBC, UA 2 /HPF [facility] Bacteria, UA Rare [facility] Mucus Rare [facility] Squam Epithel, UA 8 /HPF [facility] Hyaline Casts, UA 70 /LPF [facility] Amorphous Crystals Rare [facility] Specimen Source [facility] Specimen Urine Performing Organization Address City/State/Zipcode Phone Number [facility] [address] [place] [address] CENTER Rapid drug screen, urine (02/10/2018 4:08 AM CDT) Barbiturate Screen Negative Negative [facility] Benzodiazepine Screen Negative Negative [facility] Cocaine (Metab.) Screen Negative Negative [facility] Methadone Screen Negative Negative [facility] Opiate Screen Negative Negative [facility] Cannabinoid Screen Negative Negative [facility] Amph/Methamph Screen Negative Negative [facility] Phencyclidine Screen Negative Negative [facility] Oxycodone Screen Negative Negative [facility] Specimen Urine Narrative Performed At [facility] DRUGCUTOFF CONC. Cocaine 300 ng/mL Fvyirfslwro68 ng/mL Eqmiberuxbwmmk566 ng/mL Barbiturate 200 ng/mL Wtyjdsrgzpwab22 ng/mL Pmupjj914 ng/mL Methadone 300 ng/mL Amphetamine/ 1000 ng/mL Methamphetamine Oxycodone 300 ng/mL This assay provides an unconfirmed qualitative test result for the clinical management of patients in emergency situations. Chain of custody not maintained. Some zqsb-slb-aehlcrw medications, as well as adulterants, may cause inaccurate results. Clinical correlation should be applied. A more comprehensive drug screen or confirmation of a detected drug may be performed upon request. Performing Organization Address City/[facility] [place] [facility] Centercode Phone Number [address] [address] [phone] [place] Blood gas, venous (02/10/2018 2:00 AM CDT) pH, Ortiz 7.42 7.32 - 7.42 [facility] pCO2, Ortiz 28 (L) 41 - 51 mmHg [facility] pO2, Ortiz 34 25 - 40 mmHg [facility] O2 Sat, Ortiz 67.6 40.0 - 70.0 % [facility] HCO3, Ortiz 17 (L) 21 - 29 mmol/L [facility] Base Excess, Ortiz -6.2 (L) -2.0 - 3.0 mmol/L [facility] Patient Temperature 37.0 C [facility] Specimen Blood Performing Organization Address City/[facility]/Zipcode Phone Number [address] [address] CENTER Troponin I (02/10/2018 1:54 AM CDT) Troponin I <0.01 0.00 - 0.03 ng/mL [facility] Specimen Blood Narrative Performed At [facility] Troponin I (TnI) levels must [...] disease, and persistent tachyarrhythmia. Performing Organization Address City/[facility] [place] [facility] Centercode Phone Number [address] [address] CENTER Fibrinogen (02/10/2018 1:54 AM CDT) Fibrinogen 372 225 - 434 mg/dl [facility] Specimen Blood Performing Organization Address [facility] Phone Number [address] [address] [phone] [place] Creatine Kinase (CK), Total and MB (02/10/2018 1:54 AM CDT) Total CK 30 29 - 200 U/L [facility] CK-MB 0.4 0.0 - 6.6 ng/mL [facility] MB Relative Index 1.3 % [facility] Specimen Blood Narrative Performed At CK-MB Reference Range: [facility] <6.7Normal 6.7-10.0Borderline >10.0 Abnormal Performing Organization Address [facility] [place] [facility] Centercode Phone Number [address] [address] CENTER Ethanol (02/10/2018 1:54 AM CDT) Ethanol Lvl <10 <=10 mg/dL [facility] Specimen Blood Performing Organization Address [facility] [place] [facility] Centercode Phone Number [address] [address] CENTER after 02/09/2018 Insurance Payer Benefit Plan / Group Subscriber ID Type Phone Address GARCIA MEDICAID MEDICAID GARCIA xxxxxxxxx Advance Directives For more information, please contact:[address] [phone] Code Status Date Activated Date Inactivated Comments Full Code 05/23/2018 8:59 PM 05/27/2018 7:11 PM This code status was determined by: Patient Full Code 02/10/2018 2:37 AM 02/15/2018 7:08 PM This code status was determined by: Patient
--- OUTSIDE RECORDS SUMMARY | 2019-02-10 10:51 | XMS REPORT ---
:1970 [facility] Address [address] [place] [address] Care Team Providers Name Role Phone KENYA [...] Comments SODIUM (BEAKER) (test 133 meq/L 136-145 ensv=605) POTASSIUM (BEAKER) (test 3.0 meq/L 3.5-5.1 blqp=404) CHLORIDE (BEAKER) (test 107 meq/L 98-107 toqc=406) CO2 (BEAKER) (test zgso=635) 18 meq/L 22-29 BLOOD UREA NITROGEN (BEAKER) 15 mg/dL 7-21 (test hnap=659) CREATININE (BEAKER) (test 0.93 mg/dL 0.57-1.25 hwqf=096) GLUCOSE RANDOM (BEAKER) 94 mg/dL 70-105 (test qzrw=580) CALCIUM (BEAKER) (test 8.1 mg/dL 8.4-10.2 kkpm=744) EGFR (BEAKER) (test 64 mL/min/1.73 sq m ESTIMATED GFR IS NOT qevn=2193) ACCURATE CREATININE CLEARANCE IN PREDICTING GLOMERULAR FILTRATION RATE. ESTIMATED GFR IS NOT APPLICABLE FOR DIALYSIS PATIENTS. CBC W/PLT COUNT & AUTO [id number] 05:30:00 Test Item Value Reference Range Comments WHITE BLOOD CELL COUNT (BEAKER) (test mryg=264) 4.3 K/ L 3.5-10.5 RED BLOOD CELL COUNT (BEAKER) (test dpip=751) 2.91 M/ L 3.93-5.22 HEMOGLOBIN (BEAKER) (test nuif=409) 8.1 GM/DL 11.2-15.7 HEMATOCRIT (BEAKER) (test hblk=280) 25.6 % 34.1-44.9 MEAN CORPUSCULAR VOLUME (BEAKER) (test aeud=761) 88.0 fL 79.4-94.8 MEAN CORPUSCULAR HEMOGLOBIN (BEAKER) (test 27.8 pg 25.6-32.2 bjdx=092) MEAN CORPUSCULAR HEMOGLOBIN CONC (BEAKER) (test 31.6 GM/DL 32.2-35.5 obhw=805) RED CELL DISTRIBUTION WIDTH (BEAKER) (test 16.3 % 11.7-14.4 base=699) PLATELET COUNT (BEAKER) (test rbqj=435) 129 K/CU MM 150-450 MEAN PLATELET VOLUME (BEAKER) (test uvsi=535) 11.5 fL 9.4-12.3 NUCLEATED RED BLOOD CELLS (BEAKER) (test 0 /100 WBC 0-0 uhhy=887) NEUTROPHILS RELATIVE PERCENT (BEAKER) (test 71 % lqzq=586) LYMPHOCYTES RELATIVE PERCENT (BEAKER) (test 6 % emid=950) MONOCYTES RELATIVE PERCENT (BEAKER) (test 14 % xzej=241) EOSINOPHILS RELATIVE PERCENT (BEAKER) (test 7 % yqkr=782) BASOPHILS RELATIVE PERCENT (BEAKER) (test 1 % ethw=800) NEUTROPHILS ABSOLUTE COUNT (BEAKER) (test 3.07 K/ L 1.56-6.13 bxpo=170) LYMPHOCYTES ABSOLUTE COUNT (BEAKER) (test 0.27 K/ L 1.18-3.74 xnem=948) MONOCYTES ABSOLUTE COUNT (BEAKER) (test 0.60 K/ L 0.24-0.36 vkpa=351) EOSINOPHILS ABSOLUTE COUNT (BEAKER) (test 0.29 K/ L 0.04-0.36 lpgg=080) BASOPHILS ABSOLUTE COUNT (BEAKER) (test 0.06 K/ L 0.01-0.08 rzyu=445) IMMATURE GRANULOCYTES-RELATIVE PERCENT (BEAKER) 0 % 0-1 (test vcfu=5566) BASIC METABOLIC [id number] 07:48:00 Test Item Value Reference Range Comments SODIUM (BEAKER) (test 134 meq/L 136-145 rwxs=540) POTASSIUM (BEAKER) (test 3.7 meq/L 3.5-5.1 Specimen slightly cdkm=476) hemolyzed CHLORIDE (BEAKER) (test 107 meq/L 98-107 pjsd=486) CO2 (BEAKER) (test 17 meq/L 22-29 eanx=760) BLOOD UREA NITROGEN 15 mg/dL 7-21 (BEAKER) (test jmzj=437) CREATININE (BEAKER) (test 0.84 mg/dL 0.57-1.25 Specimen slightly goce=788) hemolyzed GLUCOSE RANDOM (BEAKER) 88 mg/dL 70-105 (test ktqx=232) CALCIUM (BEAKER) (test 8.1 mg/dL 8.4-10.2 pxev=853) EGFR (BEAKER) (test 72 mL/min/1.73 sq m ESTIMATED GFR IS NOT wdcw=9082) ACCURATE CREATININE CLEARANCE IN PREDICTING GLOMERULAR FILTRATION RATE. ESTIMATED GFR IS NOT APPLICABLE FOR DIALYSIS PATIENTS. CBC W/PLT COUNT & AUTO [id number] 07:40:00 Test Item Value Reference Range Comments WHITE BLOOD CELL COUNT (BEAKER) (test unyz=315) 4.3 K/ L 3.5-10.5 RED BLOOD CELL COUNT (BEAKER) (test kyte=173) 2.96 M/ L 3.93-5.22 HEMOGLOBIN (BEAKER) (test ureb=349) 8.2 GM/DL 11.2-15.7 HEMATOCRIT (BEAKER) (test fdpd=578) 26.4 % 34.1-44.9 MEAN CORPUSCULAR VOLUME (BEAKER) (test umcx=455) 89.2 fL 79.4-94.8 MEAN CORPUSCULAR HEMOGLOBIN (BEAKER) (test 27.7 pg 25.6-32.2 bvvd=987) MEAN CORPUSCULAR HEMOGLOBIN CONC (BEAKER) (test 31.1 GM/DL 32.2-35.5 caza=058) RED CELL DISTRIBUTION WIDTH (BEAKER) (test 15.9 % 11.7-14.4 ugrh=753) PLATELET COUNT (BEAKER) (test mnnl=681) 121 K/CU MM 150-450 MEAN PLATELET VOLUME (BEAKER) (test uqas=246) 11.4 fL 9.4-12.3 NUCLEATED RED BLOOD CELLS (BEAKER) (test 0 /100 WBC 0-0 bfko=846) NEUTROPHILS RELATIVE PERCENT (BEAKER) (test 83 % mgkf=135) LYMPHOCYTES RELATIVE PERCENT (BEAKER) (test 4 % stmi=682) MONOCYTES RELATIVE PERCENT (BEAKER) (test 7 % andk=153) EOSINOPHILS RELATIVE PERCENT (BEAKER) (test 4 % znpd=090) BASOPHILS RELATIVE PERCENT (BEAKER) (test 1 % hwux=291) NEUTROPHILS ABSOLUTE COUNT (BEAKER) (test 3.57 K/ L 1.56-6.13 vjok=054) LYMPHOCYTES ABSOLUTE COUNT (BEAKER) (test 0.18 K/ L 1.18-3.74 yzic=286) MONOCYTES ABSOLUTE COUNT (BEAKER) (test 0.31 K/ L 0.24-0.36 ofuv=637) EOSINOPHILS ABSOLUTE COUNT (BEAKER) (test 0.17 K/ L 0.04-0.36 ybns=593) BASOPHILS ABSOLUTE COUNT (BEAKER) (test 0.06 K/ L 0.01-0.08 mplx=622) IMMATURE GRANULOCYTES-RELATIVE PERCENT (BEAKER) 1 % 0-1 (test nztg=5063) U/S, [id number] 17:49:00TherapeuticReason for exam:-> AscitesShould this be performed at the bedside?->NoFINAL REPORT Paracentesis dated 12/06/2018 Procedure: Ultrasound-guided paracentesis. Preprocedure diagnosis: Ascites Postprocedure diagnosis: Ascites Conscious sedation: None. Radiologist: Laure Jules M.D. Roofer Metal: None Anesthesia: 1% Xylocaine mixed with sodium bicarbonate local anesthesia. Technique: After obtaining informed consent, ultrasound-guided paracentesis was performed under usual sterile technique. Using a 5 botswanan drainage catheter , puncture was made in the right lower quadrant abdomen. Approximately 11,500 cc of serous fluid was removed. Patient tolerated theprocedure well without complication. Complication: None Graft/Implant: None Estimated Blood Loss: None Impression: Ultrasound-guided paracentesis. Signed: Laure Jules MDReport Verified Date/Time: 12/06/2018 17:49:10 Reading Location: [facility] [id number] Consult Reading Room 05: 49 [id number] 15:10:00 Test Item Value Reference Range Comments PARTIAL THROMBOPLASTIN TIME (BEAKER) (test 35.9 seconds 22.5-36.0 nxfa=919) PROTHROMBIN TIME/[id number] 15:09:00 Test Item Value Reference Range Comments PROTIME (BEAKER) (test lcdy=031) 16.7 seconds 11.7-14.7 INR (BEAKER) (test wnxu=954) 1.4 <=5.9 RECOMMENDED COUMADIN/WARFARIN INR THERAPY RANGESSTANDARD DOSE: 2.0 - 3.0 Includes: PROPHYLAXIS forvenous thrombosis, systemic embolization; TREATMENT for venous thrombosis and/or pulmonary embolus.HIGH RISK: Target INR is 2.5-3.5 for patients with mechanical heart valves.B-TYPE NATRIURETIC FACTOR (BNP)2018-12 13:18:00 Test Item Value Reference Range Comments B-TYPE NATRIURETIC PEPTIDE (BEAKER) (test orrv=133) 45 pg/mL 0-100 COMPREHENSIVE METABOLIC [id number] 13:12:00 Test Item Value Reference Range Comments TOTAL PROTEIN (BEAKER) 6.6 gm/dL 6.0-8.3 (test niqb=779) ALBUMIN (BEAKER) (test 3.3 g/dL 3.5-5.0 kknh=5781) ALKALINE PHOSPHATASE 152 U/L 40-150 (BEAKER) (test wcna=660) BILIRUBIN TOTAL (BEAKER) 1.3 mg/dL 0.2-1.2 (test jrue=464) SODIUM (BEAKER) (test 135 meq/L 136-145 jaut=094) POTASSIUM (BEAKER) (test 4.5 meq/L 3.5-5.1 eqad=465) CHLORIDE (BEAKER) (test 112 meq/L 98-107 yjsb=702) CO2 (BEAKER) (test 15 meq/L 22-29 ispd=729) BLOOD UREA NITROGEN 11 mg/dL 7-21 (BEAKER) (test fkyo=070) CREATININE (BEAKER) (test 0.70 mg/dL 0.57-1.25 dmoz=793) GLUCOSE RANDOM (BEAKER) 85 mg/dL 70-105 (test xnuz=930) CALCIUM (BEAKER) (test 8.3 mg/dL 8.4-10.2 okgl=332) AST (SGOT) (BEAKER) (test 42 U/L 5-34 xslh=827) ALT (SGPT) (BEAKER) (test 18 U/L 6-55 iryf=024) EGFR (BEAKER) (test 89 mL/min/1.73 sq m ESTIMATED GFR IS NOT veqw=1907) ACCURATE CREATININE CLEARANCE IN PREDICTING GLOMERULAR FILTRATION RATE. ESTIMATED GFR IS NOT APPLICABLE FOR DIALYSIS PATIENTS. CBC W/PLT COUNT & AUTO [id number] 13:05:00 Test Item Value Reference Range Comments WHITE BLOOD CELL COUNT (BEAKER) (test dqyo=140) 3.9 K/ L 3.5-10.5 RED BLOOD CELL COUNT (BEAKER) (test vmae=984) 2.30 M/ L 3.93-5.22 HEMOGLOBIN (BEAKER) (test xgyr=911) 6.2 GM/DL 11.2-15.7 HEMATOCRIT (BEAKER) (test fvyd=004) 20.9 % 34.1-44.9 MEAN CORPUSCULAR VOLUME (BEAKER) (test fpqr=865) 90.9 fL 79.4-94.8 MEAN CORPUSCULAR HEMOGLOBIN (BEAKER) (test 27.0 pg 25.6-32.2 xjsg=328) MEAN CORPUSCULAR HEMOGLOBIN CONC (BEAKER) (test 29.7 GM/DL 32.2-35.5 tnuc=913) RED CELL DISTRIBUTION WIDTH (BEAKER) (test 17.0 % 11.7-14.4 jovw=718) PLATELET COUNT (BEAKER) (test vaji=045) 136 K/CU MM 150-450 MEAN PLATELET VOLUME (BEAKER) (test zrha=161) 10.6 fL 9.4-12.3 NUCLEATED RED BLOOD CELLS (BEAKER) (test 0 /100 WBC 0-0 pnbn=170) NEUTROPHILS RELATIVE PERCENT (BEAKER) (test 75 % elnu=210) LYMPHOCYTES RELATIVE PERCENT (BEAKER) (test 7 % lapk=080) MONOCYTES RELATIVE PERCENT (BEAKER) (test 14 % jyte=058) EOSINOPHILS RELATIVE PERCENT (BEAKER) (test 2 % thxv=257) BASOPHILS RELATIVE PERCENT (BEAKER) (test 1 % ozas=470) NEUTROPHILS ABSOLUTE COUNT (BEAKER) (test 2.90 K/ L 1.56-6.13 ejiz=636) LYMPHOCYTES ABSOLUTE COUNT (BEAKER) (test 0.25 K/ L 1.18-3.74 rabm=564) MONOCYTES ABSOLUTE COUNT (BEAKER) (test 0.54 K/ L 0.24-0.36 azzl=218) EOSINOPHILS ABSOLUTE COUNT (BEAKER) (test 0.09 K/ L 0.04-0.36 lomv=173) BASOPHILS ABSOLUTE COUNT (BEAKER) (test 0.05 K/ L 0.01-0.08 atkj=564) IMMATURE GRANULOCYTES-RELATIVE PERCENT (BEAKER) 1 % 0-1 (test rjdr=5173) [id number] 13:02:00 Test Item Value Reference Range Comments AMMONIA (BEAKER) (test vdmv=551) 62 mol/L 18-72 U/S, [id number] 08:43:00Reason for exam:->ascitesReason for exam: ->possible sbpShould this be performed at the bedside?->YesFINAL REPORT Ultrasound guided paracentesis, 05/23/2018. Clinical History:Ascites. Sedation: None. Nozzle Tender: Mckenzie. Roofer Metal : None. Estimated Blood Loss: < 1 [...] was achieved with 1% lidocaine, a 5 Dominican one-step catheter was advanced into the peritoneal cavity under ultrasound guidance. After completion of drainage, the catheter was removed. There was no evidence of complication. Patient Disposition: The patient was discharged from the ultrasound department after the paracentesis, in good condition. Impression: Successful ultrasound guided paracentesis. Signed: Pino Rincon Verified Date/Time: 06/02/2018 08:43:07 Reading Location: [facility] B1 P048 Angio Body Reading Room Electronically signed by: PINO RINCON M.D. on 2017 08:43 AMBODY FLUID CULTURE + GRAM [id number] 08:26:00 Test Item Value Reference Range Comments CULTURE (BEAKER) (test pzvu=1796) No growth GRAM STAIN RESULT (BEAKER) (test 2+ WBCs gkgr=7806) GRAM STAIN RESULT (BEAKER) (test No organisms seen jzgb=46328) BLOOD [id number] 19:00:00 Test Item Value Reference Range Comments CULTURE (BEAKER) (test dpvi=8497) No growth in 5 days BLOOD [id number] 19:00:00 Test Item Value Reference Range Comments CULTURE (BEAKER) (test dxcc=7598) No growth in 5 days BODY FLUID CELL COUNT WITH [id number] 15:04:00 Test Item Value Reference Range Comments APPEARANCE FLUID (BEAKER) (test Hazy Clear vspb=226) COLOR FLUID (BEAKER) (test Straw Colorless, Straw ufmn=426) RBC FLUID (BEAKER) (test 1220 /uL <=1 qlil=017) ADJUSTED WBC FLUID (BEAKER) 193 /cu mm <=5 (test bqzi=9267) LINING CELLS (BEAKER) (test 14 /cu mm <=1 gcni=0583) NEUTROPHILS FLUID (BEAKER) 44 % (test ssbe=2902) LYMPHS FLUID (BEAKER) (test 26 % onuq=429) MONO/MACROPHAGE FLUID (BEAKER) 30 % (test eulz=015) EOSINOPHILS FLUID (BEAKER) 0 % (test qwhx=774) BASO FLUID (BEAKER) (test 0 % vybq=524) INTERPRETATION-210 (BEAKER) Negative for malignant (test rkik=6549) cells. UOPM-VLYERSEDJDS-171 (BEAKER) Stanislav Sofia M.D. (test ygto=0345) (electronic signature) CONTAINER BODY FLUID (BEAKER) Sterile Cup (test gtpe=4160) BASIC METABOLIC [id number] 03:33:00 Test Item Value Reference Range Comments SODIUM (BEAKER) (test 134 meq/L 135-148 xncv=534) POTASSIUM (BEAKER) (test 3.5 meq/L 3.5-5.5 qtpd=458) CHLORIDE (BEAKER) (test 107 meq/L 98-106 icaa=227) CO2 (BEAKER) (test 15 meq/L 20-31 nuhz=808) BLOOD UREA NITROGEN 22 mg/dL 10-26 (BEAKER) (test evlq=778) CREATININE (BEAKER) (test 1.51 mg/dL 0.50-1.20 qkzy=775) GLUCOSE RANDOM (BEAKER) 105 mg/dL 70-110 (test bvos=636) CALCIUM (BEAKER) (test 9.7 mg/dL 8.5-10.5 vfna=065) EGFR (BEAKER) (test 37 mL/min/1.73 sq m ESTIMATED GFR IS NOT ymtv=0810) ACCURATE CREATININE CLEARANCE IN PREDICTING GLOMERULAR FILTRATION RATE. ESTIMATED GFR IS NOT APPLICABLE FOR DIALYSIS PATIENTS. Specimen slightly ictericU/S, [id number] 16:05:00Reason for exam:-& gt;ascites, please only remove about 3L, pt with ZUNILDA too, dont want to shift fluidbalanceFINAL REPORT Ultrasound guided paracentesis , 05/26/2018. Clinical History:Ascites. Sedation: None. Nozzle Tender: Vishnu Biggs MD Roofer Metal: None. Estimated Blood Loss: < 1 cc. [...] achieved with 1 % lidocaine, a 5 Dominican one-step catheter was advanced into the peritoneal cavity under ultrasound guidance. After completion of drainage, the catheter was removed. There was no evidence ofcomplication. Impression:Successful ultrasound guided paracentesis. Signed: Vishnu Biggs MDReport Verified Date/ Time: 05/26/2018 16:05:11 Reading Location: [facility] Radiology Reading Room COMPREHENSIVE METABOLIC [id number] 05:55:00 Test Item Value Reference Range Comments TOTAL PROTEIN (BEAKER) 7.5 gm/dL 6.0-8.5 (test uqod=731) ALBUMIN (BEAKER) (test 3.9 g/dL 3.5-5.0 arzm=8668) ALKALINE PHOSPHATASE 97 U/L 30-115 (BEAKER) (test bmoo=506) BILIRUBIN TOTAL (BEAKER) 2.3 mg/dL 0.1-1.3 (test fkxt=966) SODIUM (BEAKER) (test 134 meq/L 135-148 itfi=260) POTASSIUM (BEAKER) (test 3.7 meq/L 3.5-5.5 jrwo=769) CHLORIDE (BEAKER) (test 105 meq/L 98-106 adez=660) CO2 (BEAKER) (test 16 meq/L 20-31 kpcz=294) BLOOD UREA NITROGEN 25 mg/dL 10-26 (BEAKER) (test ybox=380) CREATININE (BEAKER) (test 1.74 mg/dL 0.50-1.20 fpsy=112) GLUCOSE RANDOM (BEAKER) 116 mg/dL 70-110 (test srrg=339) CALCIUM (BEAKER) (test 9.6 mg/dL 8.5-10.5 oezb=145) AST (SGOT) (BEAKER) (test 44 U/L 5-40 hvtf=755) ALT (SGPT) (BEAKER) (test 23 U/L 6-50 duzx=857) EGFR (BEAKER) (test 31 mL/min/1.73 sq m ESTIMATED GFR IS NOT xpsn=6087) ACCURATE CREATININE CLEARANCE IN PREDICTING GLOMERULAR FILTRATION RATE. ESTIMATED GFR IS NOT APPLICABLE FOR DIALYSIS PATIENTS. [id number] 05:51:00 Test Item Value Reference Range Comments POTASSIUM (BEAKER) (test cofb=701) 3.7 meq/L 3.5-5.5 [id number] 05:51:00 Test Item Value Reference Range Comments MAGNESIUM (BEAKER) (test lcvd=376) 2.1 mg/dL 1.5-3.0 [id number] 05:31:00 Test Item Value Reference Range Comments AMMONIA (BEAKER) (test qhsz=184) 134 mol/L 12-72 URINE [id number] 12:48:00 Test Item Value Reference Range Comments CULTURE (BEAKER) (test vldk=0924) No growth BASIC METABOLIC [id number] 04:24:00 Test Item Value Reference Range Comments SODIUM (BEAKER) (test 131 meq/L 135-148 yjjw=006) POTASSIUM (BEAKER) (test 3.5 meq/L 3.5-5.5 pegp=978) CHLORIDE (BEAKER) (test 103 meq/L 98-106 meiw=306) CO2 (BEAKER) (test 17 meq/L 20-31 bcfy=745) BLOOD UREA NITROGEN 27 mg/dL 10-26 (BEAKER) (test lpkn=769) CREATININE (BEAKER) (test 2.29 mg/dL 0.50-1.20 yvcf=333) GLUCOSE RANDOM (BEAKER) 93 mg/dL 70-110 (test kusz=803) CALCIUM (BEAKER) (test 9.2 mg/dL 8.5-10.5 dqvv=589) EGFR (BEAKER) (test 23 mL/min/1.73 sq m ESTIMATED GFR IS NOT vzlu=5328) ACCURATE CREATININE CLEARANCE IN PREDICTING GLOMERULAR FILTRATION RATE. ESTIMATED GFR IS NOT APPLICABLE FOR DIALYSIS PATIENTS. CBC W/PLT COUNT & AUTO [id number] 03:55:00 Test Item Value Reference Range Comments WHITE BLOOD CELL COUNT (BEAKER) 4.5 K/ L 4.0-10.0 (test nncb=490) RED BLOOD CELL COUNT (BEAKER) 3.28 M/ L 4.00-5.00 (test tuwb=893) HEMOGLOBIN (BEAKER) (test 10.0 GM/DL 12.0-15.5 wxqn=486) HEMATOCRIT (BEAKER) (test 29.9 % 36.0-46.0 khfe=342) MEAN CORPUSCULAR VOLUME 91.2 fL 82.0-99.0 (BEAKER) (test ejtp=725) MEAN CORPUSCULAR HEMOGLOBIN 30.5 pg 27.0-33.0 (BEAKER) (test oacw=805) MEAN CORPUSCULAR HEMOGLOBIN 33.4 GM/DL 32.0-36.0 CONC (BEAKER) (test jaaz=713) RED CELL DISTRIBUTION WIDTH 17.4 % 12.0-15.0 (BEAKER) (test gaph=780) PLATELET COUNT (BEAKER) (test 105 K/CU MM 150-430 qylf=915) MEAN PLATELET VOLUME (BEAKER) 10.5 fL 6.0-11.5 MPV-Approximately 20% (test ijnw=976) positive bias due to method change. NUCLEATED RED BLOOD CELLS 0 /100 WBC 0-0 (BEAKER) (test dpkt=604) NEUTROPHILS RELATIVE PERCENT 71 % (BEAKER) (test dypv=740) LYMPHOCYTES RELATIVE PERCENT 8 % (BEAKER) (test fkfm=515) MONOCYTES RELATIVE PERCENT 13 % (BEAKER) (test gmiv=114) EOSINOPHILS RELATIVE PERCENT 6 % (BEAKER) (test cegh=409) BASOPHILS RELATIVE PERCENT 1 % (BEAKER) (test lxyy=280) NEUTROPHILS ABSOLUTE COUNT 3.22 K/ L 1.80-8.00 (BEAKER) (test knef=571) LYMPHOCYTES ABSOLUTE COUNT 0.38 K/ L 1.48-4.50 (BEAKER) (test kesj=842) MONOCYTES ABSOLUTE COUNT 0.57 K/ L 0.00-1.30 (BEAKER) (test qbtp=396) EOSINOPHILS ABSOLUTE COUNT 0.29 K/ L 0.00-0.50 (BEAKER) (test qvzh=773) BASOPHILS ABSOLUTE COUNT 0.05 K/ L 0.00-0.20 (BEAKER) (test pzpd=108) IMMATURE GRANULOCYTES-RELATIVE 0 % 0-0 PERCENT (BEAKER) (test qcea=9406) HEPATITIS PANEL, [id number] 20:47:00 Test Item Value Reference Range Comments HEPATITIS A IGM ANTIBODY (BEAKER) (test Nonreactive Nonreactive pbfw=055) HEPATITIS B CORE IGM ANTIBODY (BEAKER) (test Nonreactive Nonreactive gedt=913) HEPATITIS C ANTIBODY (BEAKER) (test mbif=515) Nonreactive Nonreactive HEPATITIS B SURFACE ANTIGEN (2) (BEAKER) (test Nonreactive Nonreactive hbqh=7442) ALPHA FETOPROTEIN (AFP), TUMOR [id number] 19:52:00 Test Item Value Reference Range Comments ALPHA-FETOPROTEIN (BEAKER) (test kbnx=2635) 5.5 ng/mL <10.0 CREATININE, RANDOM [id number] 14:08:00 Test Item Value Reference Range Comments CREATININE URINE (BEAKER) (test znuw=711) 42.7 mg/dL Reference Range: No NormalsSODIUM, RANDOM [id number] 14:08:00 Test Item Value Reference Range Comments SODIUM URINE (BEAKER) (test stir=479) 28 meq/L Reference Range: No NormalsOCCULT BLOOD, [id number] 13:56:00 Test Item Value Reference Range Comments FECAL OCCULT BLOOD (BEAKER) (test tjzi=493) Positive Negative U/S, RENAL, [id number] 11:53:00Reason for exam:->akiFINAL REPORT RENAL ULTRASOUND HISTORY: Acute kidney injury COMPARISON : Abdominal ultrasound 02/11/2018 TECHNIQUE: Real-time ultrasound of the kidneys was performed. FINDINGS: Thekidneys are normal in size. The right kidney measures 11.6 cm in length and the left kidney dqgwrnca84.1 cm in length. Renal cortical thickness measures [...] MDReport Verified Date/Time: 05/24/2018 11:53:08 Reading Location: [address] Reading Room BASIC METABOLIC [id number] 05:13:00 Test Item Value Reference Range Comments SODIUM (BEAKER) (test 131 meq/L 135-148 kvfb=318) POTASSIUM (BEAKER) (test 2.8 meq/L 3.5-5.5 kicw=870) CHLORIDE (BEAKER) (test 101 meq/L 98-106 qmja=150) CO2 (BEAKER) (test 17 meq/L 20-31 umkm=334) BLOOD UREA NITROGEN 28 mg/dL 10-26 (BEAKER) (test gipj=094) CREATININE (BEAKER) (test 2.85 mg/dL 0.50-1.20 wugj=135) GLUCOSE RANDOM (BEAKER) 91 mg/dL 70-110 (test ksgf=281) CALCIUM (BEAKER) (test 9.0 mg/dL 8.5-10.5 snwx=260) EGFR (BEAKER) (test 18 mL/min/1.73 sq m ESTIMATED GFR IS NOT oyas=7838) ACCURATE CREATININE CLEARANCE IN PREDICTING GLOMERULAR FILTRATION RATE. ESTIMATED GFR IS NOT APPLICABLE FOR DIALYSIS PATIENTS. CBC W/PLT COUNT & AUTO [id number] 04:39:00 Test Item Value Reference Range Comments WHITE BLOOD CELL COUNT (BEAKER) 5.4 K/ L 4.0-10.0 (test mhka=640) RED BLOOD CELL COUNT (BEAKER) 2.26 M/ L 4.00-5.00 (test clvp=088) HEMOGLOBIN (BEAKER) (test 7.2 GM/DL 12.0-15.5 nkrd=201) HEMATOCRIT (BEAKER) (test 21.3 % 36.0-46.0 wttf=508) MEAN CORPUSCULAR VOLUME 94.2 fL 82.0-99.0 (BEAKER) (test wjph=898) MEAN CORPUSCULAR HEMOGLOBIN 31.9 pg 27.0-33.0 (BEAKER) (test lvaw=765) MEAN CORPUSCULAR HEMOGLOBIN 33.8 GM/DL 32.0-36.0 CONC (BEAKER) (test nsdp=481) RED CELL DISTRIBUTION WIDTH 17.1 % 12.0-15.0 (BEAKER) (test magg=373) PLATELET COUNT (BEAKER) (test 98 K/CU MM 150-430 ahee=763) MEAN PLATELET VOLUME (BEAKER) 10.4 fL 6.0-11.5 MPV-Approximately 20% (test xjzc=310) positive bias due to method change. NUCLEATED RED BLOOD CELLS 0 /100 WBC 0-0 (BEAKER) (test ykey=451) NEUTROPHILS RELATIVE PERCENT 77 % (BEAKER) (test lync=652) LYMPHOCYTES RELATIVE PERCENT 7 % (BEAKER) (test rrwe=506) MONOCYTES RELATIVE PERCENT 10 % (BEAKER) (test zslm=191) EOSINOPHILS RELATIVE PERCENT 5 % (BEAKER) (test vfnp=422) BASOPHILS RELATIVE PERCENT 1 % (BEAKER) (test vuix=914) NEUTROPHILS ABSOLUTE COUNT 4.15 K/ L 1.80-8.00 (BEAKER) (test ccxg=291) LYMPHOCYTES ABSOLUTE COUNT 0.35 K/ L 1.48-4.50 (BEAKER) (test wdcx=778) MONOCYTES ABSOLUTE COUNT 0.55 K/ L 0.00-1.30 (BEAKER) (test kiqe=125) EOSINOPHILS ABSOLUTE COUNT 0.27 K/ L 0.00-0.50 (BEAKER) (test bwxk=695) BASOPHILS ABSOLUTE COUNT 0.04 K/ L 0.00-0.20 (BEAKER) (test yvsq=776) IMMATURE GRANULOCYTES-RELATIVE 0 % 0-0 PERCENT (BEAKER) (test rtbd=0992) BASIC METABOLIC [id number] 19:11:00 Test Item Value Reference Range Comments SODIUM (BEAKER) (test 130 meq/L 135-148 ghpk=632) POTASSIUM (BEAKER) (test 3.8 meq/L 3.5-5.5 Specimen slightly hqld=615) hemolyzed CHLORIDE (BEAKER) (test 100 meq/L 98-106 mngb=897) CO2 (BEAKER) (test 17 meq/L 20-31 zbkg=438) BLOOD UREA NITROGEN 27 mg/dL 10-26 (BEAKER) (test ycix=555) CREATININE (BEAKER) (test 2.86 mg/dL 0.50-1.20 Specimen slightly wfkj=357) hemolyzed GLUCOSE RANDOM (BEAKER) 97 mg/dL 70-110 (test uyhk=443) CALCIUM (BEAKER) (test 8.8 mg/dL 8.5-10.5 ljay=819) EGFR (BEAKER) (test 18 mL/min/1.73 sq m ESTIMATED GFR IS NOT imcy=6246) ACCURATE CREATININE CLEARANCE IN PREDICTING GLOMERULAR FILTRATION RATE. ESTIMATED GFR IS NOT APPLICABLE FOR DIALYSIS PATIENTS. CT, BRAIN, WITHOUT [id number] 17:56:00Reason for exam:->ALTERED MENTAL STATUSReason for exam:->BLOATEDReason [...] Silver Verified Date/Time: 05/23/2018 17:56:33 Reading Location: [facility] Radiology Reading Room COMPREHENSIVE METABOLIC [id number] 16:54:00 Test Item Value Reference Range Comments TOTAL PROTEIN (BEAKER) 7.2 gm/dL 6.0-8.5 Specimen slightly (test fgdn=230) hemolyzed ALBUMIN (BEAKER) (test 3.5 g/dL 3.5-5.0 Specimen slightly lhct=5462) hemolyzed ALKALINE PHOSPHATASE 122 U/L 30-115 (BEAKER) (test iuut=716) BILIRUBIN TOTAL (BEAKER) 1.5 mg/dL 0.1-1.3 Specimen slightly (test tlop=781) hemolyzed SODIUM (BEAKER) (test 131 meq/L 135-148 ijus=464) POTASSIUM (BEAKER) (test 2.9 meq/L 3.5-5.5 Specimen slightly yzve=487) hemolyzed CHLORIDE (BEAKER) (test 101 meq/L 98-106 yljf=546) CO2 (BEAKER) (test 16 meq/L 20-31 cjcp=626) BLOOD UREA NITROGEN 27 mg/dL 10-26 (BEAKER) (test pxrj=360) CREATININE (BEAKER) (test 2.98 mg/dL 0.50-1.20 Specimen slightly ddjj=898) hemolyzed GLUCOSE RANDOM (BEAKER) 99 mg/dL 70-110 (test sqna=820) CALCIUM (BEAKER) (test 8.9 mg/dL 8.5-10.5 ltnl=848) AST (SGOT) (BEAKER) (test 53 U/L 5-40 Specimen slightly yula=087) hemolyzed ALT (SGPT) (BEAKER) (test 23 U/L 6-50 Specimen slightly ohgx=065) hemolyzed EGFR (BEAKER) (test 17 mL/min/1.73 sq m ESTIMATED GFR IS NOT jrqo=7343) ACCURATE CREATININE CLEARANCE IN PREDICTING GLOMERULAR FILTRATION RATE. ESTIMATED GFR IS NOT APPLICABLE FOR DIALYSIS PATIENTS. [id number] 16:38:00 Test Item Value Reference Range Comments LIPASE (BEAKER) (test mmgy=933) 82 U/L 8-78 PROTHROMBIN [id number] 16:28:00 Test Item Value Reference Range Comments PROTIME (BEAKER) (test iuyv=003) 16.1 seconds 11.8-14.4 INR (BEAKER) (test cgsz=548) 1.3 1.2-1.5 RECOMMENDED COUMADIN/WARFARIN INR THERAPY RANGESSTANDARD DOSE: 2.0 - 3.0 Includes: PROPHYLAXIS forvenous thrombosis, systemic embolization; TREATMENT for venous thrombosis and/or pulmonary embolus.HIGH RISK: Target INR is 2.5-3.5 for patients with mechanical heart valves.CBC W/PLT COUNT & AUTO [id number] 16:26:00 Test Item Value Reference Range Comments WHITE BLOOD CELL COUNT (BEAKER) 7.1 K/ L 4.0-10.0 (test bkig=104) RED BLOOD CELL COUNT (BEAKER) 2.50 M/ L 4.00-5.00 (test iwdu=139) HEMOGLOBIN (BEAKER) (test 8.0 GM/DL 12.0-15.5 jgcv=373) HEMATOCRIT (BEAKER) (test 24.1 % 36.0-46.0 izrr=425) MEAN CORPUSCULAR VOLUME 96.4 fL 82.0-99.0 (BEAKER) (test uxxd=632) MEAN CORPUSCULAR HEMOGLOBIN 32.0 pg 27.0-33.0 (BEAKER) (test sojw=536) MEAN CORPUSCULAR HEMOGLOBIN 33.2 GM/DL 32.0-36.0 CONC (BEAKER) (test xepl=533) RED CELL DISTRIBUTION WIDTH 17.3 % 12.0-15.0 (BEAKER) (test yimi=327) PLATELET COUNT (BEAKER) (test 115 K/CU MM 150-430 htbz=349) MEAN PLATELET VOLUME (BEAKER) 11.3 fL 6.0-11.5 MPV-Approximately 20% (test mgqc=223) positive bias due to method change. NUCLEATED RED BLOOD CELLS 0 /100 WBC 0-0 (BEAKER) (test pgzk=243) NEUTROPHILS RELATIVE PERCENT 90 % (BEAKER) (test gfnp=832) LYMPHOCYTES RELATIVE PERCENT 4 % (BEAKER) (test wupx=590) MONOCYTES RELATIVE PERCENT 4 % (BEAKER) (test olji=976) EOSINOPHILS RELATIVE PERCENT 1 % (BEAKER) (test eswl=501) BASOPHILS RELATIVE PERCENT 1 % (BEAKER) (test pwyn=348) NEUTROPHILS ABSOLUTE COUNT 6.34 K/ L 1.80-8.00 (BEAKER) (test eyqt=266) LYMPHOCYTES ABSOLUTE COUNT 0.25 K/ L 1.48-4.50 (BEAKER) (test rrqk=808) MONOCYTES ABSOLUTE COUNT 0.30 K/ L 0.00-1.30 (BEAKER) (test xkap=714) EOSINOPHILS ABSOLUTE COUNT 0.10 K/ L 0.00-0.50 (BEAKER) (test tweq=058) BASOPHILS ABSOLUTE COUNT 0.04 K/ L 0.00-0.20 (BEAKER) (test cars=829) IMMATURE GRANULOCYTES-RELATIVE 0 % 0-0 PERCENT (BEAKER) (test fiyn=8889) RAD, CHEST, 1 VIEW, NON [id number] 16:22:00Reason for exam:->altered mental statusShould this be performed at the bedside?->YesIs the patient ?->NoFINAL REPORT CHEST AP PORTABLE History provided: Altered mental status Heart size normal. Lungs clear and vascularity normal. IMPRESSION: Clear chest. Signed: Gonzalo Serranoeport Verified Date/ Time: 05/23/2018 16:22:47 Reading Location: [facility] Radiology Reading Room URINALYSIS W/ [id number] 16:19:00 Test Item Value Reference Range Comments COLOR (BEAKER) (test xahs=057) Yellow CLARITY (BEAKER) (test gxjn=311) Hazy SPECIFIC GRAVITY UA (BEAKER) (test vnlf=557) 1.016 1.001-1.035 PH UA (BEAKER) (test nmpg=710) 5.0 5.0-8.0 PROTEIN UA (BEAKER) (test hurz=946) Negative Negative GLUCOSE UA (BEAKER) (test vowq=196) Negative Negative KETONES UA (BEAKER) (test pijb=458) Negative Negative BILIRUBIN UA (BEAKER) (test xmaf=300) Negative Negative BLOOD UA (BEAKER) (test qlza=395) Negative Negative NITRITE UA (BEAKER) (test utbd=985) Negative Negative LEUKOCYTE ESTERASE UA (BEAKER) (test hqjd=575) Negative Negative UROBILINOGEN UA (BEAKER) (test ywcj=366) < mg/dL 0.2-1.0 RBC UA (BEAKER) (test tyno=109) 1 /HPF WBC UA (BEAKER) (test exzt=827) 1 /HPF BACTERIA (BEAKER) (test hdjs=576) Rare MUCUS (BEAKER) (test tayw=8984) Rare SQUAMOUS EPITHELIAL (BEAKER) (test aykj=003) < /HPF HYALINE CASTS (BEAKER) (test hoex=422) 4 /LPF SOURCE(BEAKER) (test lbol=9411) LACTIC ACID, VENOUS, WHOLE [id number] 16:12:00 Test Item Value Reference Range Comments LACTATE BLOOD VENOUS (2) 2.0 mmol/L 0.5-2.2 Specimen moderately hemolyzed (BEAKER) (test hkfo=2058) Effective 12/07/2015: Units/Reference Range ChangeNew: 0.5-2.2 mmol/L Previous: 5 -20 mg/[id number] 16:07:00 Test Item Value Reference Range Comments AMMONIA (BEAKER) (test 90 mol/L 12-72 Specimen moderately hemolyzed yxgo=107) AFB CULTURE + [id number] 00:02:00 Test Item Value Reference Range Comments CULTURE (BEAKER) (test No acid-fast bacilli isolated mrzk=9227) in 42 days AFB SMEAR (BEAKER) (test No acid fast bacilli seen azkw=354) FUNGUS CULTURE + [id number] 12:57:00 Test Item Value Reference Range Comments CULTURE (BEAKER) (test No fungus isolated in 28 days rfer=6094) FUNGUS SMEAR (BEAKER) (test No fungi seen gesz=4551) BODY FLUID CULTURE + GRAM [id number] 05:31:00 Test Item Value Reference Range Comments CULTURE (BEAKER) (test koqr=6925) No growth GRAM STAIN RESULT (BEAKER) (test <1+ WBCs iopq=2864) GRAM STAIN RESULT (BEAKER) (test No organisms seen yjri=85668) ANAEROBIC [id number] 02:42:00 Test Item Value Reference Range Comments CULTURE (BEAKER) (test jnwq=2712) No anaerobes isolated POCT-GLUCOSE [id number] 13:58:00 Test Item Value Reference Range Comments POC-GLUCOSE METER (BEAKER) 119 mg/dL 70-110 TESTED AT [facility] [address] [facility] (test hzqv=8364) [facility] [address] CBC W/PLT COUNT & AUTO [id number] 09:22:00 Test Item Value Reference Range Comments WHITE BLOOD CELL COUNT (BEAKER) (test lgiq=568) 5.1 K/ L 3.5-10.5 RED BLOOD CELL COUNT (BEAKER) (test yqkf=153) 2.79 M/ L 3.93-5.22 HEMOGLOBIN (BEAKER) (test fzkl=305) 8.8 GM/DL 11.2-15.7 HEMATOCRIT (BEAKER) (test ceel=945) 27.2 % 34.1-44.9 MEAN CORPUSCULAR VOLUME (BEAKER) (test zbmv=952) 97.5 fL 79.4-94.8 MEAN CORPUSCULAR HEMOGLOBIN (BEAKER) (test 31.5 pg 25.6-32.2 xyhv=551) MEAN CORPUSCULAR HEMOGLOBIN CONC (BEAKER) (test 32.4 GM/DL 32.2-35.5 rdlr=458) RED CELL DISTRIBUTION WIDTH (BEAKER) (test 18.8 % 11.7-14.4 qbux=484) PLATELET COUNT (BEAKER) (test cghh=287) 86 K/CU MM 150-450 MEAN PLATELET VOLUME (BEAKER) (test ckjy=618) 12.6 fL 9.4-12.3 NUCLEATED RED BLOOD CELLS (BEAKER) (test 0 /100 WBC 0-0 vcij=262) NEUTROPHILS RELATIVE PERCENT (BEAKER) (test 73 % wrsp=237) LYMPHOCYTES RELATIVE PERCENT (BEAKER) (test 7 % qfjx=754) MONOCYTES RELATIVE PERCENT (BEAKER) (test 12 % djdu=820) EOSINOPHILS RELATIVE PERCENT (BEAKER) (test 6 % wcff=323) BASOPHILS RELATIVE PERCENT (BEAKER) (test 1 % lbbz=232) NEUTROPHILS ABSOLUTE COUNT (BEAKER) (test 3.63 K/ L 1.56-6.13 molq=175) LYMPHOCYTES ABSOLUTE COUNT (BEAKER) (test 0.36 K/ L 1.18-3.74 aapp=221) MONOCYTES ABSOLUTE COUNT (BEAKER) (test uwyz=592) 0.61 K/ L 0.24-0.36 EOSINOPHILS ABSOLUTE COUNT (BEAKER) (test 0.31 K/ L 0.04-0.36 feul=307) BASOPHILS ABSOLUTE COUNT (BEAKER) (test tepd=461) 0.06 K/ L 0.01-0.08 IMMATURE GRANULOCYTES-RELATIVE PERCENT (BEAKER) 0 % 0-1 (test begg=5715) CBC (HEMOGRAM ONLY)2018-02-15 09:16:00 Test Item Value Reference Range Comments WHITE BLOOD CELL COUNT (BEAKER) (test mwll=609) 5.1 K/ L 3.5-10.5 RED BLOOD CELL COUNT (BEAKER) (test vbzp=989) 2.79 M/ L 3.93-5.22 HEMOGLOBIN (BEAKER) (test subk=534) 8.8 GM/DL 11.2-15.7 HEMATOCRIT (BEAKER) (test klio=180) 27.2 % 34.1-44.9 MEAN CORPUSCULAR VOLUME (BEAKER) (test pwaq=925) 97.5 fL 79.4-94.8 MEAN CORPUSCULAR HEMOGLOBIN (BEAKER) (test 31.5 pg 25.6-32.2 sflr=008) MEAN CORPUSCULAR HEMOGLOBIN CONC (BEAKER) (test 32.4 GM/DL 32.2-35.5 ihus=245) RED CELL DISTRIBUTION WIDTH (BEAKER) (test 18.8 % 11.7-14.4 llxk=534) PLATELET COUNT (BEAKER) (test cxyd=003) 86 K/CU MM 150-450 MEAN PLATELET VOLUME (BEAKER) (test bijp=294) 12.6 fL 9.4-12.3 NUCLEATED RED BLOOD CELLS (BEAKER) (test 0 /100 WBC 0-0 aqrr=528) POCT-GLUCOSE [id number] 08:54:00 Test Item Value Reference Range Comments POC-GLUCOSE METER (BEAKER) 135 mg/dL 70-110 TESTED AT [facility] [address] [facility] (test wbux=5347) [facility] [address] [id number] 06:41:00 Test Item Value Reference Range Comments PHOSPHORUS (BEAKER) (test jpcf=519) 3.5 mg/dL 2.3-4.7 [id number] 06:41:00 Test Item Value Reference Range Comments MAGNESIUM (BEAKER) (test mbca=926) 1.7 mg/dL 1.6-2.6 BASIC METABOLIC [id number] 06:41:00 Test Item Value Reference Range Comments SODIUM (BEAKER) (test 136 meq/L 136-145 ebom=998) POTASSIUM (BEAKER) (test 3.2 meq/L 3.5-5.1 gncc=226) CHLORIDE (BEAKER) (test 112 meq/L 98-107 styc=042) CO2 (BEAKER) (test 14 meq/L 22-29 hrmk=231) BLOOD UREA NITROGEN 14 mg/dL 7-21 (BEAKER) (test gbkj=829) CREATININE (BEAKER) (test 0.71 mg/dL 0.57-1.25 gtjy=752) GLUCOSE RANDOM (BEAKER) 92 mg/dL 70-105 (test abus=888) CALCIUM (BEAKER) (test 8.9 mg/dL 8.4-10.2 wgox=394) EGFR (BEAKER) (test 88 mL/min/1.73 sq m ESTIMATED GFR IS NOT yyba=0581) ACCURATE CREATININE CLEARANCE IN PREDICTING GLOMERULAR FILTRATION RATE. ESTIMATED GFR IS NOT APPLICABLE FOR DIALYSIS PATIENTS. HEPATIC FUNCTION [id number] 06:41:00 Test Item Value Reference Range Comments TOTAL PROTEIN (BEAKER) (test ggut=501) 6.3 gm/dL 6.0-8.3 ALBUMIN (BEAKER) (test plvf=2257) 3.9 g/dL 3.5-5.0 BILIRUBIN TOTAL (BEAKER) (test auyh=184) 1.7 mg/dL 0.2-1.2 BILIRUBIN DIRECT (BEAKER) (test vmsj=340) 1.0 mg/dL 0.1-0.5 ALKALINE PHOSPHATASE (BEAKER) (test sppq=690) 126 U/L 40-150 AST (SGOT) (BEAKER) (test hpsm=682) 118 U/L 5-34 ALT (SGPT) (BEAKER) (test shay=313) 56 U/L 6-55 BLOOD [id number] 06:00:00 Test Item Value Reference Range Comments CULTURE (BEAKER) (test cuyf=2398) No growth in 5 days BLOOD [id number] 06:00:00 Test Item Value Reference Range Comments CULTURE (BEAKER) (test rexc=4225) No growth in 5 days POCT-GLUCOSE [id number] 21:33:00 Test Item Value Reference Range Comments POC-GLUCOSE METER (BEAKER) 126 mg/dL 70-110 TESTED AT [facility] [address] [facility] (test qxxi=7183) [facility] [address] BODY FLUID CELL COUNT WITH [id number] 20:39:00 Test Item Value Reference Range Comments APPEARANCE FLUID (BEAKER) (test qlzg=749) Bloody Clear COLOR FLUID (BEAKER) (test bpdn=029) Red Colorless, Straw RBC FLUID (BEAKER) (test fisj=549) [address] /cu mm <=1 ADJUSTED WBC FLUID (BEAKER) (test opte=8696) 206 /cu mm <=5 LINING CELLS (BEAKER) (test mhwj=3191) 4 /cu mm <=1 NEUTROPHILS FLUID (BEAKER) (test kvuh=1761) 50 % LYMPHS FLUID (BEAKER) (test blbv=457) 5 % MONO/MACROPHAGE FLUID (BEAKER) (test okal=287) 45 % EOSINOPHILS FLUID (BEAKER) (test kocq=451) 0 % BASO FLUID (BEAKER) (test kvfl=608) 0 % CONTAINER BODY FLUID (BEAKER) (test ngyz=3526) EDTA Tube TISSUE [id number] 18:33:00Surgical Pathology Report Case: [id number] Authorizing Provider: Tamera Mayorga MD Collected: 02/11/2018 9378 Ordering Location: [place] [address] ICU Received: 02/11/2018 1613 Pathologist: Herminia Hope MD Specimen: Hernia Sac, Umbilical SKIN AND HERNIA SAC, EXCISION:- SKIN WITH ULCER, NECROSIS, HERNIA WITH FIBROSIS, ADHESION AND CHRONIC INFLAMMATION Signing Pathologist Direct Phone Line: [phone] umbilical hernia Hernia sac umbilical The specimen is received in a formalin-filled container labeled with the patient's information and labeled "umbilical hernial sac" and consists of hemorrhagic membranous tissue measuring 6 x 3 x 0.2 cm with overlying brown skin measuring 5.5 x 3 x 0.3 cm, submitted in A1 and A2. There are no areas of suspicion. CG/ew PerformedPOCT-GLUCOSE [id number] 18:27:00 Test Item Value Reference Range Comments POC-GLUCOSE METER (BEAKER) 152 mg/dL 70-110 TESTED AT [facility] [address] [place] [address] (test qtyp=8632) [facility] [address] U/S, [id number] 17:34:00Send fluid for cell ct \\T\\ diff, [...] MDReport Verified Date/Time: 02/14/2018 17:34:56 Reading Location: [facility] B1 [id number] Ultrasound Reading Room [id number] 15:56:00 Test Item Value Reference Range Comments PARTIAL THROMBOPLASTIN TIME (BEAKER) (test 28.9 seconds 22.5-36.0 hwkw=858) PROTHROMBIN TIME/[id number] 15:55:00 Test Item Value Reference Range Comments PROTIME (BEAKER) (test qshp=007) 18.3 seconds 11.7-14.7 INR (BEAKER) (test turk=917) 1.5 <=5.9 RECOMMENDED COUMADIN/WARFARIN INR THERAPY RANGESSTANDARD DOSE: 2.0 - 3.0 Includes: PROPHYLAXIS forvenous thrombosis, systemic embolization; TREATMENT for venous thrombosis and/or pulmonary embolus.HIGH RISK: Target INR is 2.5-3.5 for patients with mechanical heart valves.CBC W/PLT COUNT & AUTO [id number] 15:49:00 Test Item Value Reference Range Comments WHITE BLOOD CELL COUNT (BEAKER) (test ziva=675) 6.5 K/ L 3.5-10.5 RED BLOOD CELL COUNT (BEAKER) (test gqws=714) 2.69 M/ L 3.93-5.22 HEMOGLOBIN (BEAKER) (test hgkl=352) 8.5 GM/DL 11.2-15.7 HEMATOCRIT (BEAKER) (test zrpr=734) 25.9 % 34.1-44.9 MEAN CORPUSCULAR VOLUME (BEAKER) (test bolg=485) 96.3 fL 79.4-94.8 MEAN CORPUSCULAR HEMOGLOBIN (BEAKER) (test 31.6 pg 25.6-32.2 kmxb=909) MEAN CORPUSCULAR HEMOGLOBIN CONC (BEAKER) (test 32.8 GM/DL 32.2-35.5 ujcc=212) RED CELL DISTRIBUTION WIDTH (BEAKER) (test 19.0 % 11.7-14.4 ciir=456) PLATELET COUNT (BEAKER) (test mlfl=989) 63 K/CU MM 150-450 MEAN PLATELET VOLUME (BEAKER) (test vjmn=224) 11.6 fL 9.4-12.3 NUCLEATED RED BLOOD CELLS (BEAKER) (test 0 /100 WBC 0-0 gose=841) NEUTROPHILS RELATIVE PERCENT (BEAKER) (test 82 % rous=476) LYMPHOCYTES RELATIVE PERCENT (BEAKER) (test 4 % lxur=610) MONOCYTES RELATIVE PERCENT (BEAKER) (test 9 % njas=427) EOSINOPHILS RELATIVE PERCENT (BEAKER) (test 3 % rqxw=552) BASOPHILS RELATIVE PERCENT (BEAKER) (test 1 % xtua=400) NEUTROPHILS ABSOLUTE COUNT (BEAKER) (test 5.30 K/ L 1.56-6.13 voao=816) LYMPHOCYTES ABSOLUTE COUNT (BEAKER) (test 0.26 K/ L 1.18-3.74 dpmn=635) MONOCYTES ABSOLUTE COUNT (BEAKER) (test ibrp=813) 0.59 K/ L 0.24-0.36 EOSINOPHILS ABSOLUTE COUNT (BEAKER) (test 0.20 K/ L 0.04-0.36 sdzu=814) BASOPHILS ABSOLUTE COUNT (BEAKER) (test xtvo=207) 0.06 K/ L 0.01-0.08 IMMATURE GRANULOCYTES-RELATIVE PERCENT (BEAKER) 1 % 0-1 (test dose=3926) POCT-GLUCOSE [id number] 13:10:00 Test Item Value Reference Range Comments POC-GLUCOSE METER (BEAKER) 138 mg/dL 70-110 TESTED AT [address] (test fatm=1793) [facility] [address] SURGICALLY OBTAINED CULTURE + GRAM [id number] 11:29:00 Test Item Value Reference Range Comments CULTURE (BEAKER) (test lyzk=5721) No growth GRAM STAIN RESULT (BEAKER) (test <1+ WBCs hfld=5460) GRAM STAIN RESULT (BEAKER) (test No organisms seen fvsh=93383) CBC W/PLT COUNT & AUTO [id number] 09:31:00 Test Item Value Reference Range Comments WHITE BLOOD CELL COUNT (BEAKER) (test dqbd=428) 5.3 K/ L 3.5-10.5 RED BLOOD CELL COUNT (BEAKER) (test xfil=867) 2.76 M/ L 3.93-5.22 HEMOGLOBIN (BEAKER) (test oowh=677) 8.5 GM/DL 11.2-15.7 HEMATOCRIT (BEAKER) (test kriq=135) 26.7 % 34.1-44.9 MEAN CORPUSCULAR VOLUME (BEAKER) (test ivhy=723) 96.7 fL 79.4-94.8 MEAN CORPUSCULAR HEMOGLOBIN (BEAKER) (test 30.8 pg 25.6-32.2 zspm=243) MEAN CORPUSCULAR HEMOGLOBIN CONC (BEAKER) (test 31.8 GM/DL 32.2-35.5 lliw=290) RED CELL DISTRIBUTION WIDTH (BEAKER) (test 19.1 % 11.7-14.4 yaxf=650) PLATELET COUNT (BEAKER) (test tkpt=354) 82 K/CU MM 150-450 MEAN PLATELET VOLUME (BEAKER) (test yhjm=229) 11.5 fL 9.4-12.3 NUCLEATED RED BLOOD CELLS (BEAKER) (test 0 /100 WBC 0-0 vang=967) NEUTROPHILS RELATIVE PERCENT (BEAKER) (test 79 % ywxs=177) LYMPHOCYTES RELATIVE PERCENT (BEAKER) (test 6 % ttmp=685) MONOCYTES RELATIVE PERCENT (BEAKER) (test 10 % fomv=442) EOSINOPHILS RELATIVE PERCENT (BEAKER) (test 3 % czge=847) BASOPHILS RELATIVE PERCENT (BEAKER) (test 1 % osyv=794) NEUTROPHILS ABSOLUTE COUNT (BEAKER) (test 4.21 K/ L 1.56-6.13 lscj=433) LYMPHOCYTES ABSOLUTE COUNT (BEAKER) (test 0.33 K/ L 1.18-3.74 nypn=251) MONOCYTES ABSOLUTE COUNT (BEAKER) (test fcsy=544) 0.55 K/ L 0.24-0.36 EOSINOPHILS ABSOLUTE COUNT (BEAKER) (test 0.17 K/ L 0.04-0.36 btrj=975) BASOPHILS ABSOLUTE COUNT (BEAKER) (test wkew=050) 0.05 K/ L 0.01-0.08 IMMATURE GRANULOCYTES-RELATIVE PERCENT (BEAKER) 1 % 0-1 (test wahl=9447) POCT-GLUCOSE [id number] 08:00:00 Test Item Value Reference Range Comments POC-GLUCOSE METER (BEAKER) 100 mg/dL 70-110 TESTED AT [facility] [address] (test hhla=6557) [facility] [address] [id number] 07:25:00 Test Item Value Reference Range Comments PHOSPHORUS (BEAKER) (test kuxb=181) 3.0 mg/dL 2.3-4.7 [id number] 07:25:00 Test Item Value Reference Range Comments MAGNESIUM (BEAKER) (test cnts=874) 2.0 mg/dL 1.6-2.6 HEPATIC FUNCTION [id number] 07:25:00 Test Item Value Reference Range Comments TOTAL PROTEIN (BEAKER) (test expw=453) 6.5 gm/dL 6.0-8.3 ALBUMIN (BEAKER) (test umkz=5702) 4.2 g/dL 3.5-5.0 BILIRUBIN TOTAL (BEAKER) (test gmgr=518) 1.7 mg/dL 0.2-1.2 BILIRUBIN DIRECT (BEAKER) (test xzhq=678) 1.1 mg/dL 0.1-0.5 ALKALINE PHOSPHATASE (BEAKER) (test wgay=760) 140 U/L 40-150 AST (SGOT) (BEAKER) (test vzdi=412) 182 U/L 5-34 ALT (SGPT) (BEAKER) (test xrlg=393) 58 U/L 6-55 POCT-GLUCOSE [id number] 23:06:00 Test Item Value Reference Range Comments POC-GLUCOSE METER (BEAKER) 106 mg/dL 70-110 TESTED AT [address] (test cmxo=3415) [facility] [address] POCT-GLUCOSE [id number] 17:34:00 Test Item Value Reference Range Comments POC-GLUCOSE METER (BEAKER) 149 mg/dL 70-110 TESTED AT [address] (test sycv=0735) [facility] [address] POCT-GLUCOSE [id number] 11:39:00 Test Item Value Reference Range Comments POC-GLUCOSE METER (BEAKER) 117 mg/dL 70-110 TESTED AT [address] (test ypwe=1731) [facility] [address] POCT-GLUCOSE [id number] 08:13:00 Test Item Value Reference Range Comments POC-GLUCOSE METER (BEAKER) 126 mg/dL 70-110 TESTED AT [address] (test ztcm=6746) [facility] [address] [id number] 06:41:00 Test Item Value Reference Range Comments PHOSPHORUS (BEAKER) (test awjr=397) 2.1 mg/dL 2.3-4.7 [id number] 06:41:00 Test Item Value Reference Range Comments MAGNESIUM (BEAKER) (test nceu=390) 2.1 mg/dL 1.6-2.6 HEPATIC FUNCTION [id number] 06:41:00 Test Item Value Reference Range Comments TOTAL PROTEIN (BEAKER) (test omhm=991) 6.6 gm/dL 6.0-8.3 ALBUMIN (BEAKER) (test ukjk=4812) 4.5 g/dL 3.5-5.0 BILIRUBIN TOTAL (BEAKER) (test zntq=204) 1.0 mg/dL 0.2-1.2 BILIRUBIN DIRECT (BEAKER) (test btcf=071) 0.6 mg/dL 0.1-0.5 ALKALINE PHOSPHATASE (BEAKER) (test dfbt=970) 56 U/L 40-150 AST (SGOT) (BEAKER) (test ehqy=896) 51 U/L 5-34 ALT (SGPT) (BEAKER) (test utnj=744) 17 U/L 6-55 COMPREHENSIVE METABOLIC [id number] 06:41:00 Test Item Value Reference Range Comments TOTAL PROTEIN (BEAKER) 6.6 gm/dL 6.0-8.3 (test ijou=225) ALBUMIN (BEAKER) (test 4.5 g/dL 3.5-5.0 lcms=2256) ALKALINE PHOSPHATASE 56 U/L 40-150 (BEAKER) (test cbsw=596) BILIRUBIN TOTAL (BEAKER) 1.0 mg/dL 0.2-1.2 (test oxmi=476) SODIUM (BEAKER) (test 138 meq/L 136-145 zote=947) POTASSIUM (BEAKER) (test 3.3 meq/L 3.5-5.1 zsze=136) CHLORIDE (BEAKER) (test 114 meq/L 98-107 aqyu=673) CO2 (BEAKER) (test 15 meq/L 22-29 mpnz=072) BLOOD UREA NITROGEN 15 mg/dL 7-21 (BEAKER) (test gpoo=209) CREATININE (BEAKER) (test 0.83 mg/dL 0.57-1.25 aqbs=441) GLUCOSE RANDOM (BEAKER) 108 mg/dL 70-105 (test zwue=061) CALCIUM (BEAKER) (test 9.0 mg/dL 8.4-10.2 mosg=324) AST (SGOT) (BEAKER) (test 51 U/L 5-34 dxej=811) ALT (SGPT) (BEAKER) (test 17 U/L 6-55 zvhf=667) EGFR (BEAKER) (test 73 mL/min/1.73 sq m ESTIMATED GFR IS NOT eqvh=8442) ACCURATE CREATININE CLEARANCE IN PREDICTING GLOMERULAR FILTRATION RATE. ESTIMATED GFR IS NOT APPLICABLE FOR DIALYSIS PATIENTS. CBC W/PLT COUNT & AUTO [id number] 06:25:00 Test Item Value Reference Range Comments WHITE BLOOD CELL COUNT (BEAKER) (test izdg=758) 6.7 K/ L 3.5-10.5 RED BLOOD CELL COUNT (BEAKER) (test vpdw=826) 2.17 M/ L 3.93-5.22 HEMOGLOBIN (BEAKER) (test spjy=678) 6.8 GM/DL 11.2-15.7 HEMATOCRIT (BEAKER) (test obga=240) 21.8 % 34.1-44.9 MEAN CORPUSCULAR VOLUME (BEAKER) (test gade=450) 100.5 fL 79.4-94.8 MEAN CORPUSCULAR HEMOGLOBIN (BEAKER) (test 31.3 pg 25.6-32.2 edzn=649) MEAN CORPUSCULAR HEMOGLOBIN CONC (BEAKER) (test 31.2 GM/DL 32.2-35.5 mjvb=939) RED CELL DISTRIBUTION WIDTH (BEAKER) (test 19.9 % 11.7-14.4 dcty=013) PLATELET COUNT (BEAKER) (test azwd=355) 84 K/CU MM 150-450 MEAN PLATELET VOLUME (BEAKER) (test zkzf=710) 11.1 fL 9.4-12.3 NUCLEATED RED BLOOD CELLS (BEAKER) (test 0 /100 WBC 0-0 bjwj=529) NEUTROPHILS RELATIVE PERCENT (BEAKER) (test 84 % uwht=665) LYMPHOCYTES RELATIVE PERCENT (BEAKER) (test 4 % kmez=504) MONOCYTES RELATIVE PERCENT (BEAKER) (test 12 % zlnk=901) EOSINOPHILS RELATIVE PERCENT (BEAKER) (test 0 % kbtj=952) BASOPHILS RELATIVE PERCENT (BEAKER) (test 0 % icll=623) NEUTROPHILS ABSOLUTE COUNT (BEAKER) (test 5.59 K/ L 1.56-6.13 lpfa=733) LYMPHOCYTES ABSOLUTE COUNT (BEAKER) (test 0.25 K/ L 1.18-3.74 shbk=030) MONOCYTES ABSOLUTE COUNT (BEAKER) (test iqnw=917) 0.77 K/ L 0.24-0.36 EOSINOPHILS ABSOLUTE COUNT (BEAKER) (test 0.02 K/ L 0.04-0.36 hfgi=211) BASOPHILS ABSOLUTE COUNT (BEAKER) (test wivk=801) 0.00 K/ L 0.01-0.08 IMMATURE GRANULOCYTES-RELATIVE PERCENT (BEAKER) 1 % 0-1 (test isns=6181) SPIN/CONCENTRATION [id number] 15:23:00 Test Item Value Reference Range Comments CONCENTRATION CHARGED (BEAKER) (test fukx=8976) Done POCT-GLUCOSE [id number] 08:15:00 Test Item Value Reference Range Comments POC-GLUCOSE METER (BEAKER) 147 mg/dL 70-110 TESTED AT [facility] [address] [facility] (test lrai=6861) [facility] [address] HIV-1 ANTIGEN WITH HIV-1/2 [id number] 06:57:00 Test Item Value Reference Range Comments HIV-1 ANTIGEN WITH HIV 1\\T\\2 ANTIBODY (2) Nonreactive Nonreactive (BEAKER) (test pxgw=4163) [id number] 06:35:00 Test Item Value Reference Range Comments PHOSPHORUS (BEAKER) (test qerd=416) 2.8 mg/dL 2.3-4.7 [id number] 06:35:00 Test Item Value Reference Range Comments MAGNESIUM (BEAKER) (test uqwa=342) 1.9 mg/dL 1.6-2.6 BASIC METABOLIC [id number] 06:35:00 Test Item Value Reference Range Comments SODIUM (BEAKER) (test 133 meq/L 136-145 dhjo=643) POTASSIUM (BEAKER) (test 3.9 meq/L 3.5-5.1 tdkw=070) CHLORIDE (BEAKER) (test 111 meq/L 98-107 ptso=159) CO2 (BEAKER) (test 13 meq/L 22-29 wfol=606) BLOOD UREA NITROGEN 18 mg/dL 7-21 (BEAKER) (test ouaa=296) CREATININE (BEAKER) (test 0.86 mg/dL 0.57-1.25 abxb=339) GLUCOSE RANDOM (BEAKER) 142 mg/dL 70-105 (test cbvp=833) CALCIUM (BEAKER) (test 8.7 mg/dL 8.4-10.2 nutr=889) EGFR (BEAKER) (test 70 mL/min/1.73 sq m ESTIMATED GFR IS NOT uyut=9704) ACCURATE CREATININE CLEARANCE IN PREDICTING GLOMERULAR FILTRATION RATE. ESTIMATED GFR IS NOT APPLICABLE FOR DIALYSIS PATIENTS. HEPATIC FUNCTION [id number] 06:35:00 Test Item Value Reference Range Comments TOTAL PROTEIN (BEAKER) (test whki=383) 6.4 gm/dL 6.0-8.3 ALBUMIN (BEAKER) (test udgl=6192) 4.0 g/dL 3.5-5.0 BILIRUBIN TOTAL (BEAKER) (test nzay=799) 1.5 mg/dL 0.2-1.2 BILIRUBIN DIRECT (BEAKER) (test ilzj=073) 0.9 mg/dL 0.1-0.5 ALKALINE PHOSPHATASE (BEAKER) (test xzup=421) 46 U/L 40-150 AST (SGOT) (BEAKER) (test slhm=032) 32 U/L 5-34 ALT (SGPT) (BEAKER) (test tbeg=131) 12 U/L 6-55 CBC W/PLT COUNT & AUTO [id number] 06:26:00 Test Item Value Reference Range Comments WHITE BLOOD CELL COUNT (BEAKER) (test mfxc=771) 6.4 K/ L 3.5-10.5 RED BLOOD CELL COUNT (BEAKER) (test dqqt=079) 2.47 M/ L 3.93-5.22 HEMOGLOBIN (BEAKER) (test ephd=788) 7.5 GM/DL 11.2-15.7 HEMATOCRIT (BEAKER) (test jdwu=751) 24.3 % 34.1-44.9 MEAN CORPUSCULAR VOLUME (BEAKER) (test fgvz=502) 98.4 fL 79.4-94.8 MEAN CORPUSCULAR HEMOGLOBIN (BEAKER) (test 30.4 pg 25.6-32.2 viir=886) MEAN CORPUSCULAR HEMOGLOBIN CONC (BEAKER) (test 30.9 GM/DL 32.2-35.5 onyg=152) RED CELL DISTRIBUTION WIDTH (BEAKER) (test 20.0 % 11.7-14.4 iide=839) PLATELET COUNT (BEAKER) (test yofa=527) 85 K/CU MM 150-450 MEAN PLATELET VOLUME (BEAKER) (test odwb=393) 11.3 fL 9.4-12.3 NUCLEATED RED BLOOD CELLS (BEAKER) (test 0 /100 WBC 0-0 zrfl=318) NEUTROPHILS RELATIVE PERCENT (BEAKER) (test 92 % fqup=229) LYMPHOCYTES RELATIVE PERCENT (BEAKER) (test 3 % vmcp=655) MONOCYTES RELATIVE PERCENT (BEAKER) (test 5 % kfbp=814) EOSINOPHILS RELATIVE PERCENT (BEAKER) (test 0 % bvac=359) BASOPHILS RELATIVE PERCENT (BEAKER) (test 0 % zvjg=374) NEUTROPHILS ABSOLUTE COUNT (BEAKER) (test 5.89 K/ L 1.56-6.13 bvxn=655) LYMPHOCYTES ABSOLUTE COUNT (BEAKER) (test 0.19 K/ L 1.18-3.74 kauu=257) MONOCYTES ABSOLUTE COUNT (BEAKER) (test lsgo=415) 0.31 K/ L 0.24-0.36 EOSINOPHILS ABSOLUTE COUNT (BEAKER) (test 0.00 K/ L 0.04-0.36 pkcs=098) BASOPHILS ABSOLUTE COUNT (BEAKER) (test ncgd=618) 0.00 K/ L 0.01-0.08 IMMATURE GRANULOCYTES-RELATIVE PERCENT (BEAKER) 1 % 0-1 (test pgjy=2255) POCT-GLUCOSE [id number] 00:47:00 Test Item Value Reference Range Comments POC-GLUCOSE METER (BEAKER) 220 mg/dL 70-110 TESTED AT [address] (test zucx=7437) [facility] [address] [id number] 19:57:00 Test Item Value Reference Range Comments PHOSPHORUS (BEAKER) (test iupd=029) 2.9 mg/dL 2.3-4.7 [id number] 19:57:00 Test Item Value Reference Range Comments MAGNESIUM (BEAKER) (test fswu=135) 1.7 mg/dL 1.6-2.6 [id number] 16:27:00 Test Item Value Reference Range Comments PROTIME (BEAKER) (test kspu=144) 18.7 seconds 11.7-14.7 INR (BEAKER) (test gnfi=572) 1.6 <=5.9 PARTIAL THROMBOPLASTIN TIME (BEAKER) (test 36.5 seconds 22.5-36.0 urcp=916) RECOMMENDED COUMADIN/WARFARIN INR THERAPY RANGESSTANDARD DOSE: 2.0 - 3.0 Includes: PROPHYLAXIS forvenous thrombosis, systemic embolization; TREATMENT for venous thrombosis and/or pulmonary embolus.HIGH RISK: Target INR is 2.5-3.5 for patients with mechanical heart valves.BASIC METABOLIC [id number] 16:24: 00 Test Item Value Reference Range Comments SODIUM (BEAKER) (test 136 meq/L 136-145 awfn=620) POTASSIUM (BEAKER) (test 3.7 meq/L 3.5-5.1 xunf=322) CHLORIDE (BEAKER) (test 113 meq/L 98-107 fulk=003) CO2 (BEAKER) (test 16 meq/L 22-29 tgui=702) BLOOD UREA NITROGEN 20 mg/dL 7-21 (BEAKER) (test hbjd=566) CREATININE (BEAKER) (test 1.03 mg/dL 0.57-1.25 xvrr=040) GLUCOSE RANDOM (BEAKER) 133 mg/dL 70-105 (test lzqh=542) CALCIUM (BEAKER) (test 8.2 mg/dL 8.4-10.2 dfan=781) EGFR (BEAKER) (test 57 mL/min/1.73 sq m ESTIMATED GFR IS NOT nlyn=2992) ACCURATE CREATININE CLEARANCE IN PREDICTING GLOMERULAR FILTRATION RATE. ESTIMATED GFR IS NOT APPLICABLE FOR DIALYSIS PATIENTS. CBC W/PLT COUNT & AUTO [id number] 16:00:00 Test Item Value Reference Range Comments WHITE BLOOD CELL COUNT (BEAKER) (test gzvv=544) 4.6 K/ L 3.5-10.5 RED BLOOD CELL COUNT (BEAKER) (test jxdw=507) 2.57 M/ L 3.93-5.22 HEMOGLOBIN (BEAKER) (test vqed=776) 7.9 GM/DL 11.2-15.7 HEMATOCRIT (BEAKER) (test hmfe=928) 24.9 % 34.1-44.9 MEAN CORPUSCULAR VOLUME (BEAKER) (test tkte=721) 96.9 fL 79.4-94.8 MEAN CORPUSCULAR HEMOGLOBIN (BEAKER) (test 30.7 pg 25.6-32.2 acvg=805) MEAN CORPUSCULAR HEMOGLOBIN CONC (BEAKER) (test 31.7 GM/DL 32.2-35.5 yrte=797) RED CELL DISTRIBUTION WIDTH (BEAKER) (test 20.0 % 11.7-14.4 ltdq=022) PLATELET COUNT (BEAKER) (test egtf=914) 101 K/CU MM 150-450 MEAN PLATELET VOLUME (BEAKER) (test ktbb=166) 10.5 fL 9.4-12.3 NUCLEATED RED BLOOD CELLS (BEAKER) (test 0 /100 WBC 0-0 hfuc=620) NEUTROPHILS RELATIVE PERCENT (BEAKER) (test 94 % dnet=105) LYMPHOCYTES RELATIVE PERCENT (BEAKER) (test 3 % arrq=466) MONOCYTES RELATIVE PERCENT (BEAKER) (test 2 % lupb=802) EOSINOPHILS RELATIVE PERCENT (BEAKER) (test 1 % wzua=960) BASOPHILS RELATIVE PERCENT (BEAKER) (test 1 % iiun=449) NEUTROPHILS ABSOLUTE COUNT (BEAKER) (test 4.31 K/ L 1.56-6.13 adnu=220) LYMPHOCYTES ABSOLUTE COUNT (BEAKER) (test 0.12 K/ L 1.18-3.74 xaoj=451) MONOCYTES ABSOLUTE COUNT (BEAKER) (test 0.10 K/ L 0.24-0.36 qeyd=620) EOSINOPHILS ABSOLUTE COUNT (BEAKER) (test 0.03 K/ L 0.04-0.36 yzyg=057) BASOPHILS ABSOLUTE COUNT (BEAKER) (test 0.03 K/ L 0.01-0.08 qrjq=594) IMMATURE GRANULOCYTES-RELATIVE PERCENT (BEAKER) 0 % 0-1 (test ifyd=3588) HGB/HCT (H&H) - STAT [id number] 13:33:00 Test Item Value Reference Range Comments HEMOGLOBIN (BEAKER) (test jpxf=897) 8.7 g/dL 12.0-15.0 HEMATOCRIT (BEAKER) (test dixr=053) 26.0 % 36.0-45.0 THIS IS A VENOUS SAMPLECALCIUM, [id number] 13:33:00 Test Item Value Reference Range Comments CALCIUM IONIZED (BEAKER) (test ydvy=379) 1.07 mmol/L 1.12-1.27 PH, BLOOD (BEAKER) (test gcjb=8527) 7.28 GLUCOSE-STAT [id number] 13:33:00 Test Item Value Reference Range Comments GLUCOSE RANDOM (BEAKER) (test ubij=175) 122 mg/dL 70-110 THIS IS A VENOUS SAMPLETHIS IS A VENOUS SAMPLETHIS IS A VENOUS SAMPLESODIUM NA- STAT [id number] 13:32:00 Test Item Value Reference Range Comments SODIUM (BEAKER) (test oijw=643) 135 meq/L 135-148 THIS IS A VENOUS SAMPLETHIS IS A VENOUS SAMPLETHIS IS A VENOUS SAMPLEPOTASSIUM- STAT [id number] 13:32:00 Test Item Value Reference Range Comments POTASSIUM (BEAKER) (test rjhn=587) 3.9 meq/L 3.6-5.5 THIS IS A VENOUS SAMPLETHIS IS A VENOUS SAMPLETHIS IS A VENOUS SAMPLEU/S, ABDOMINAL, [id number] 09:32:00Reason for exam:->ascites, acute renal failure, hydronephrosisShould [...] MDReport Verified Date/Time: 02/11/2018 09:32:36 Reading Location: [place] [id number] Ultrasound Reading Room Electronically signed by: BELA RIOS M.D. on 05/2018 09:32 AMPOCT-GLUCOSE [id number] 08:05:00 Test Item Value Reference Range Comments POC-GLUCOSE METER (BEAKER) 117 mg/dL 70-110 TESTED AT [facility] [address] [facility] (test tffl=7326) [facility] [address] COMPREHENSIVE METABOLIC [id number] 07:53:00 Test Item Value Reference Range Comments TOTAL PROTEIN (BEAKER) 6.1 gm/dL 6.0-8.3 (test jiof=570) ALBUMIN (BEAKER) (test 3.2 g/dL 3.5-5.0 lkrw=8841) ALKALINE PHOSPHATASE 58 U/L 40-150 (BEAKER) (test cugc=588) BILIRUBIN TOTAL (BEAKER) 1.6 mg/dL 0.2-1.2 (test nhwk=358) SODIUM (BEAKER) (test 135 meq/L 136-145 nves=657) POTASSIUM (BEAKER) (test 3.5 meq/L 3.5-5.1 xmnr=188) CHLORIDE (BEAKER) (test 111 meq/L 98-107 rubm=702) CO2 (BEAKER) (test 17 meq/L 22-29 gptg=314) BLOOD UREA NITROGEN 25 mg/dL 7-21 (BEAKER) (test pspk=151) CREATININE (BEAKER) (test 1.29 mg/dL 0.57-1.25 gchm=294) GLUCOSE RANDOM (BEAKER) 110 mg/dL 70-105 (test lieu=318) CALCIUM (BEAKER) (test 8.5 mg/dL 8.4-10.2 nvij=039) AST (SGOT) (BEAKER) (test 39 U/L 5-34 anbt=791) ALT (SGPT) (BEAKER) (test 13 U/L 6-55 zrag=678) EGFR (BEAKER) (test 44 mL/min/1.73 sq m ESTIMATED GFR IS NOT ztmv=7471) ACCURATE CREATININE CLEARANCE IN PREDICTING GLOMERULAR FILTRATION RATE. ESTIMATED GFR IS NOT APPLICABLE FOR DIALYSIS PATIENTS. CT, [id number] 07:50:00FINAL REPORT HISTORY : Hernia, complicated Technique: [...] Verified Date/ Time: 02/11/2018 07:50:19 Reading Location: [facility] Diagnostic Imaging Reading Room - [facility] F1 [id number] Electronically signed by: JESSE HATHAWAY M.D. on 2017 07:50 [id number] 07:06:00 Test Item Value Reference Range Comments PROTIME (BEAKER) (test cjbx=856) 17.3 seconds 11.7-14.7 INR (BEAKER) (test xkxe=676) 1.4 <=5.9 PARTIAL THROMBOPLASTIN TIME (BEAKER) (test 34.7 seconds 22.5-36.0 ntnd=058) RECOMMENDED COUMADIN/WARFARIN INR THERAPY RANGESSTANDARD DOSE: 2.0 - 3.0 Includes: PROPHYLAXIS forvenous thrombosis, systemic embolization; TREATMENT for venous thrombosis and/or pulmonary embolus.HIGH RISK: Target INR is 2.5-3.5 for patients with mechanical heart valves.CBC W/PLT COUNT & AUTO [id number] 06:22:00 Test Item Value Reference Range Comments WHITE BLOOD CELL COUNT (BEAKER) (test yjse=681) 4.1 K/ L 3.5-10.5 RED BLOOD CELL COUNT (BEAKER) (test yqgr=007) 2.36 M/ L 3.93-5.22 HEMOGLOBIN (BEAKER) (test jxmj=835) 7.5 GM/DL 11.2-15.7 HEMATOCRIT (BEAKER) (test ovms=848) 22.9 % 34.1-44.9 MEAN CORPUSCULAR VOLUME (BEAKER) (test ifpw=207) 97.0 fL 79.4-94.8 MEAN CORPUSCULAR HEMOGLOBIN (BEAKER) (test 31.8 pg 25.6-32.2 shih=238) MEAN CORPUSCULAR HEMOGLOBIN CONC (BEAKER) (test 32.8 GM/DL 32.2-35.5 uogz=122) RED CELL DISTRIBUTION WIDTH (BEAKER) (test 21.1 % 11.7-14.4 oxks=351) PLATELET COUNT (BEAKER) (test qlau=410) 131 K/CU MM 150-450 MEAN PLATELET VOLUME (BEAKER) (test hoee=258) 11.0 fL 9.4-12.3 NUCLEATED RED BLOOD CELLS (BEAKER) (test 0 /100 WBC 0-0 wtra=597) NEUTROPHILS RELATIVE PERCENT (BEAKER) (test 69 % ixxg=051) LYMPHOCYTES RELATIVE PERCENT (BEAKER) (test 11 % pszl=896) MONOCYTES RELATIVE PERCENT (BEAKER) (test 15 % rrhe=917) EOSINOPHILS RELATIVE PERCENT (BEAKER) (test 4 % tfiw=640) BASOPHILS RELATIVE PERCENT (BEAKER) (test 1 % genh=423) NEUTROPHILS ABSOLUTE COUNT (BEAKER) (test 2.82 K/ L 1.56-6.13 ujzx=096) LYMPHOCYTES ABSOLUTE COUNT (BEAKER) (test 0.43 K/ L 1.18-3.74 vnrk=006) MONOCYTES ABSOLUTE COUNT (BEAKER) (test 0.60 K/ L 0.24-0.36 ogap=501) EOSINOPHILS ABSOLUTE COUNT (BEAKER) (test 0.17 K/ L 0.04-0.36 fyzh=050) BASOPHILS ABSOLUTE COUNT (BEAKER) (test 0.03 K/ L 0.01-0.08 etde=137) IMMATURE GRANULOCYTES-RELATIVE PERCENT (BEAKER) 1 % 0-1 (test dlqu=6000) POCT-GLUCOSE [id number] 00:49:00 Test Item Value Reference Range Comments POC-GLUCOSE METER (BEAKER) 95 mg/dL 70-110 TESTED AT [facility] [address] [facility] (test hkiv=2754) [facility] [address] [id number] 21:49:00 Test Item Value Reference Range Comments POTASSIUM (BEAKER) (test 3.9 meq/L 3.5-5.1 Specimen moderately hemolyzed fkuy=909) SODIUM, RANDOM [id number] 19:06:00 Test Item Value Reference Range Comments SODIUM URINE (BEAKER) (test ufdx=049) < meq/L Reference Range: No NormalsCREATININE, RANDOM [id number] 19:02:00 Test Item Value Reference Range Comments CREATININE URINE (BEAKER) (test nvdw=251) 160.3 mg/dL Reference Range: No NormalsPROTEIN, RANDOM [id number] 19:02:00 Test Item Value Reference Range Comments PROTEIN, URINE (BEAKER) (test sqcx=3886) 19 mg/dL 0-14 SCREEN, [id number] 18:47:00 Test Item Value Reference Range Comments TEST URINE (BEAKER) (test btsu=762) Negative POCT-GLUCOSE [id number] 18:08:00 Test Item Value Reference Range Comments POC-GLUCOSE METER (BEAKER) 183 mg/dL 70-110 TESTED AT [address] (test pvsh=0658) [facility] [address] [id number] 13:33:00 Test Item Value Reference Range Comments POTASSIUM (BEAKER) (test zian=015) 3.2 meq/L 3.5-5.1 CBC (HEMOGRAM ONLY)2018-02-10 13:20:00 Test Item Value Reference Range Comments WHITE BLOOD CELL COUNT 4.6 K/ L 3.5-10.5 (BEAKER) (test mxzi=905) RED BLOOD CELL COUNT (BEAKER) 2.47 M/ L 3.93-5.22 (test lmrh=990) HEMOGLOBIN (BEAKER) (test 7.6 GM/DL 11.2-15.7 ojap=557) HEMATOCRIT (BEAKER) (test 23.0 % 34.1-44.9 btzi=136) MEAN CORPUSCULAR VOLUME 93.1 fL 79.4-94.8 Discordant from previous (BEAKER) (test gosj=811) results. Clinical correlation suggested. MEAN CORPUSCULAR HEMOGLOBIN 30.8 pg 25.6-32.2 (BEAKER) (test amte=013) MEAN CORPUSCULAR HEMOGLOBIN 33.0 GM/DL 32.2-35.5 CONC (BEAKER) (test edrm=038) RED CELL DISTRIBUTION WIDTH 20.5 % 11.7-14.4 (BEAKER) (test rrdu=584) PLATELET COUNT (BEAKER) (test 111 K/CU MM 150-450 xhva=512) MEAN PLATELET VOLUME (BEAKER) 11.2 fL 9.4-12.3 (test urnj=962) NUCLEATED RED BLOOD CELLS 0 /100 WBC 0-0 (BEAKER) (test parp=249) POCT-GLUCOSE [id number] 11:51:00 Test Item Value Reference Range Comments POC-GLUCOSE METER (BEAKER) 123 mg/dL 70-110 TESTED AT [address] (test hycg=5484) [facility] [address] POCT-GLUCOSE [id number] 06:46:00 Test Item Value Reference Range Comments POC-GLUCOSE METER (BEAKER) 237 mg/dL 70-110 TESTED AT [facility] [address] (test ohcm=7271) [facility] [address] CBC (HEMOGRAM ONLY)2018-02-10 06:44:00 Test Item Value Reference Range Comments WHITE BLOOD CELL COUNT (BEAKER) (test vuut=247) 2.8 K/ L 3.5-10.5 RED BLOOD CELL COUNT (BEAKER) (test icqd=725) 2.34 M/ L 3.93-5.22 HEMOGLOBIN (BEAKER) (test zvjs=217) 7.2 GM/DL 11.2-15.7 HEMATOCRIT (BEAKER) (test biqy=638) 22.8 % 34.1-44.9 MEAN CORPUSCULAR VOLUME (BEAKER) (test abkb=767) 97.4 fL 79.4-94.8 MEAN CORPUSCULAR HEMOGLOBIN (BEAKER) (test 30.8 pg 25.6-32.2 zisn=465) MEAN CORPUSCULAR HEMOGLOBIN CONC (BEAKER) (test 31.6 GM/DL 32.2-35.5 kwpf=475) RED CELL DISTRIBUTION WIDTH (BEAKER) (test 20.3 % 11.7-14.4 zifl=520) PLATELET COUNT (BEAKER) (test rhuj=415) 102 K/CU MM 150-450 MEAN PLATELET VOLUME (BEAKER) (test bfzl=286) 11.3 fL 9.4-12.3 NUCLEATED RED BLOOD CELLS (BEAKER) (test 0 /100 WBC 0-0 hoox=707) RAPID DRUG SCREEN, [id number] 06:12:00 Test Item Value Reference Range Comments BARBITURATE URINE (BEAKER) (test chym=584) Negative Negative BENZODIAZEPINE SCREEN URINE (BEAKER) (test Negative Negative sxwr=086) COCAINE (METAB.) SCREEN (BEAKER) (test xwti=1501) Negative Negative METHADONE SCREEN (BEAKER) (test iquc=8448) Negative Negative OPIATE SCREEN URINE (BEAKER) (test ztzm=290) Negative Negative CANNABINOID SCREEN URINE (BEAKER) (test zsqj=510) Negative Negative AMPH/METHAMPH SCREEN (BEAKER) (test jwwu=2333) Negative Negative PHENCYCLIDINE SCREEN URINE (BEAKER) (test xtbz=202) Negative Negative OXYCODONE SCREEN URINE (BEAKER) (test cyvt=8174) Negative Negative DRUG CUTOFF CONC.Cocaine 300 ng/mL Cannabinoid 50 ng/mL Benzodiazepine 200 ng/mLBarbiturate 200 ng/ mLPhencyclidine 25 ng/mLOpiate 300 ng/mLMethadone 300 ng/mLAmphetamine/ 1000 ng/mL MethamphetamineOxycodone 300 ng/mLThis assay provides an unconfirmed qualitative test result for the clinical management of patients in emergency situations. Chain of custody not maintained. Some innn-iwb-whvmdkd medications, as well as adulterants, may cause inaccurate results. Clinical correlation should be applied. A more comprehensive drug screen or confirmation of a detected drug may be performed upon request.URINALYSIS W/ REFLEX URINE [id number] 04:33:00 Test Item Value Reference Range Comments COLOR (BEAKER) (test uofu=763) Yellow CLARITY (BEAKER) (test kcbw=347) Hazy SPECIFIC GRAVITY UA (BEAKER) (test ihaq=140) 1.013 1.001-1.035 PH UA (BEAKER) (test udxi=046) 6.0 5.0-8.0 PROTEIN UA (BEAKER) (test cdct=106) 10 mg/dL Negative GLUCOSE UA (BEAKER) (test prwa=255) Negative Negative KETONES UA (BEAKER) (test kjfw=057) Trace Negative BILIRUBIN UA (BEAKER) (test skhq=904) Negative Negative BLOOD UA (BEAKER) (test xfxd=893) Negative Negative NITRITE UA (BEAKER) (test sxua=473) Negative Negative LEUKOCYTE ESTERASE UA (BEAKER) (test dqvv=616) Negative Negative UROBILINOGEN UA (BEAKER) (test zgdd=404) 0.2 mg/dL 0.2-1.0 RBC UA (BEAKER) (test unne=764) < /HPF WBC UA (BEAKER) (test njox=897) 2 /HPF BACTERIA (BEAKER) (test qvbb=046) Rare MUCUS (BEAKER) (test kjpk=0123) Rare SQUAMOUS EPITHELIAL (BEAKER) (test zhsu=912) 8 /HPF HYALINE CASTS (BEAKER) (test nfdj=233) 70 /LPF AMORPHOUS CRYSTALS (BEAKER) (test pfiv=8855) Rare SOURCE(BEAKER) (test hryn=7748) BASIC METABOLIC [id number] 02:35:00 Test Item Value Reference Range Comments SODIUM (BEAKER) (test 137 meq/L 136-145 edqy=176) POTASSIUM (BEAKER) (test 2.9 meq/L 3.5-5.1 soif=959) CHLORIDE (BEAKER) (test 109 meq/L 98-107 upop=495) CO2 (BEAKER) (test 14 meq/L 22-29 xoei=861) BLOOD UREA NITROGEN 31 mg/dL 7-21 (BEAKER) (test mqjg=619) CREATININE (BEAKER) (test 1.98 mg/dL 0.57-1.25 rzmn=924) GLUCOSE RANDOM (BEAKER) 146 mg/dL 70-105 (test hriy=836) CALCIUM (BEAKER) (test 8.9 mg/dL 8.4-10.2 ygrf=598) EGFR (BEAKER) (test 27 mL/min/1.73 sq m ESTIMATED GFR IS NOT piou=7912) ACCURATE CREATININE CLEARANCE IN PREDICTING GLOMERULAR FILTRATION RATE. ESTIMATED GFR IS NOT APPLICABLE FOR DIALYSIS PATIENTS. [id number] 02:35:00 Test Item Value Reference Range Comments MAGNESIUM (BEAKER) (test vrrx=051) 2.0 mg/dL 1.6-2.6 HEPATIC FUNCTION [id number] 02:35:00 Test Item Value Reference Range Comments TOTAL PROTEIN (BEAKER) (test bjjs=355) 7.4 gm/dL 6.0-8.3 ALBUMIN (BEAKER) (test ptxm=9219) 3.8 g/dL 3.5-5.0 BILIRUBIN TOTAL (BEAKER) (test khub=964) 1.8 mg/dL 0.2-1.2 BILIRUBIN DIRECT (BEAKER) (test amxw=352) 0.9 mg/dL 0.1-0.5 ALKALINE PHOSPHATASE (BEAKER) (test wgpj=885) 73 U/L 40-150 AST (SGOT) (BEAKER) (test nnnb=449) 38 U/L 5-34 ALT (SGPT) (BEAKER) (test zhca=145) 14 U/L 6-55 BLOOD GAS, [id number] 02:34:00 Test Item Value Reference Range Comments PH VENOUS (BEAKER) (test kdyp=822) 7.42 7.32-7.42 PCO2 VENOUS (BEAKER) (test ndcr=862) 28 mmHg 41-51 PO2 VENOUS (BEAKER) (test orln=806) 34 mmHg 25-40 O2 SATURATION VENOUS (BEAKER) (test oued=443) 67.6 % 40.0-70.0 HCO3 VENOUS (BEAKER) (test rtin=907) 17 mmol/L 21-29 BASE EXCESS VENOUS (BEAKER) (test xdup=731) -6.2 mmol/L -2.0-3.0 PATIENT TEMPERATURE (BEAKER) (test ihrb=8634) 37.0 C [id number] 02:33:00 Test Item Value Reference Range Comments PHOSPHORUS (BEAKER) (test hbkf=581) 3.7 mg/dL 2.3-4.7 [id number] 02:33:00 Test Item Value Reference Range Comments LIPASE (BEAKER) (test aidc=799) 40 U/L 8-78 CREATINE KINASE (CK), TOTAL AND [id number] 02:30:00 Test Item Value Reference Range Comments CREATINE KINASE TOTAL (BEAKER) (test bsyg=240) 30 U/L 29-200 CREATINE KINASE-MB (BEAKER) (test babc=886) 0.4 ng/mL 0.0-6.6 CREATINE KINASE-MB INDEX (BEAKER) (test tfof=109) 1.3 % CK-MB Reference Range:<6.7 Normal6.7-10.0 Borderline>10.0 AbnormalTROPONIN [id number] 02:30:00 Test Item Value Reference Range Comments TROPONIN I (BEAKER) (test nsax=048) < ng/mL 0.00-0.03 Troponin I (TnI) levels [...] failure, acidosis, acute neurological disease, and persistent tachyarrhythmia.[id number] 02:19:00 Test Item Value Reference Range Comments ETHANOL (BEAKER) (test ebtd=423) < mg/dL <=10 [id number] 02:17:00 Test Item Value Reference Range Comments PARTIAL THROMBOPLASTIN TIME (BEAKER) (test 32.8 seconds 22.5-36.0 zfyw=930) LACTIC ACID, VENOUS, WHOLE [id number] 02:17:00 Test Item Value Reference Range Comments LACTATE BLOOD VENOUS (2) (BEAKER) (test 1.2 mmol/L 0.5-2.2 bxts=3142) Effective 12/07/2015: Units/Reference Range ChangeNew: 0.5-2.2 mmol/L Previous: 5 -20 mg/dLPROTHROMBIN [id number] 02:16:00 Test Item Value Reference Range Comments PROTIME (BEAKER) (test wclz=804) 17.0 seconds 11.7-14.7 INR (BEAKER) (test gsdj=655) 1.4 <=5.9 RECOMMENDED COUMADIN/WARFARIN INR THERAPY RANGESSTANDARD DOSE: 2.0 - 3.0 Includes: PROPHYLAXIS forvenous thrombosis, systemic embolization; TREATMENT for venous thrombosis and/or pulmonary embolus.HIGH RISK: Target INR is 2.5-3.5 for patients with mechanical heart valves.[id number] 02:16:00 Test Item Value Reference Range Comments AMMONIA (BEAKER) (test ppne=403) 75 mol/L 18-72 [id number] 02:16:00 Test Item Value Reference Range Comments FIBRINOGEN LEVEL (BEAKER) (test siur=432) 372 mg/dl 225-434 CBC W/PLT COUNT & AUTO [id number] 02:10:00 Test Item Value Reference Range Comments WHITE BLOOD CELL COUNT (BEAKER) (test cmvn=086) 4.0 K/ L 3.5-10.5 RED BLOOD CELL COUNT (BEAKER) (test gxcp=445) 2.78 M/ L 3.93-5.22 HEMOGLOBIN (BEAKER) (test zczi=126) 8.5 GM/DL 11.2-15.7 HEMATOCRIT (BEAKER) (test cggu=004) 25.8 % 34.1-44.9 MEAN CORPUSCULAR VOLUME (BEAKER) (test xypn=102) 92.8 fL 79.4-94.8 MEAN CORPUSCULAR HEMOGLOBIN (BEAKER) (test 30.6 pg 25.6-32.2 sqde=081) MEAN CORPUSCULAR HEMOGLOBIN CONC (BEAKER) (test 32.9 GM/DL 32.2-35.5 axpm=988) RED CELL DISTRIBUTION WIDTH (BEAKER) (test 18.7 % 11.7-14.4 dhib=569) PLATELET COUNT (BEAKER) (test ojga=796) 110 K/CU MM 150-450 MEAN PLATELET VOLUME (BEAKER) (test ctjf=973) 11.2 fL 9.4-12.3 NUCLEATED RED BLOOD CELLS (BEAKER) (test 0 /100 WBC 0-0 lzza=700) NEUTROPHILS RELATIVE PERCENT (BEAKER) (test 92 % wkzh=481) LYMPHOCYTES RELATIVE PERCENT (BEAKER) (test 4 % vqro=560) MONOCYTES RELATIVE PERCENT (BEAKER) (test 3 % acep=761) EOSINOPHILS RELATIVE PERCENT (BEAKER) (test 1 % swrv=612) BASOPHILS RELATIVE PERCENT (BEAKER) (test 0 % lbmf=899) NEUTROPHILS ABSOLUTE COUNT (BEAKER) (test 3.69 K/ L 1.56-6.13 kjoq=293) LYMPHOCYTES ABSOLUTE COUNT (BEAKER) (test 0.14 K/ L 1.18-3.74 actg=044) MONOCYTES ABSOLUTE COUNT (BEAKER) (test 0.11 K/ L 0.24-0.36 ciby=066) EOSINOPHILS ABSOLUTE COUNT (BEAKER) (test 0.03 K/ L 0.04-0.36 hvyn=598) BASOPHILS ABSOLUTE COUNT (BEAKER) (test 0.01 K/ L 0.01-0.08 zokv=026) IMMATURE GRANULOCYTES-RELATIVE PERCENT (BEAKER) 1 % 0-1 (test hvpg=4066) ANTI-NUCLEAR ANTIBODY (LÓPEZ)2017-11-29 09:50:00 Test Item Value Reference Range Comments ANTI-NUCLEAR ANTIBODY (LÓPEZ) (BEAKER) (test Positive Negative aaah=368) LÓPEZ TITER AND [id number] 09:50:00 Test Item Value Reference Range Comments LÓPEZ TITER (BEAKER) (test ndos=7849) :40 LÓPEZ PATTERN (BEAKER) (test dsky=4507) Speckled [id number] 15:34:00 Test Item Value Reference Range Comments FERRITIN (BEAKER) (test avsu=571) 237 ng/mL 5-275 HEPATITIS B SURFACE [id number] 14:54:00 Test Item Value Reference Range Comments HEPATITIS B SURFACE ANTIBODY (BEAKER) (test < mIU/mL <8.0 xerh=581) HEPATITIS B SURFACE [id number] 14:49:00 Test Item Value Reference Range Comments HEPATITIS B SURFACE ANTIGEN (2) (BEAKER) (test Nonreactive Nonreactive nwtl=2423) HEPATITIS C [id number] 14:49:00 Test Item Value Reference Range Comments HEPATITIS C ANTIBODY (BEAKER) (test bybl=823) Nonreactive Nonreactive ALPHA FETOPROTEIN (AFP), TUMOR [id number] 14:48:00 Test Item Value Reference Range Comments ALPHA-FETOPROTEIN (BEAKER) (test yrnr=1275) 4.9 ng/mL <10.0 HEPATITIS B CORE ANTIBODY, [id number] 14:48:00 Test Item Value Reference Range Comments HEPATITIS B CORE TOTAL ANTIBODY (BEAKER) (test Nonreactive Nonreactive sxbw=230) HEPATITIS A ANTIBODY, [id number] 14:48:00 Test Item Value Reference Range Comments HEPATITIS A IGG ANTIBODY (BEAKER) (test Nonreactive Nonreactive dzni=8813) CBC W/PLT COUNT & AUTO [id number] 14:30:00 Test Item Value Reference Range Comments WHITE BLOOD CELL COUNT (BEAKER) (test pzod=531) 5.2 K/ L 3.5-10.5 RED BLOOD CELL COUNT (BEAKER) (test gzdr=489) 2.96 M/ L 3.93-5.22 HEMOGLOBIN (BEAKER) (test lmuu=092) 9.7 GM/DL 11.2-15.7 HEMATOCRIT (BEAKER) (test abuc=115) 31.0 % 34.1-44.9 MEAN CORPUSCULAR VOLUME (BEAKER) (test jbyd=897) 104.7 fL 79.4-94.8 MEAN CORPUSCULAR HEMOGLOBIN (BEAKER) (test 32.8 pg 25.6-32.2 yztq=097) MEAN CORPUSCULAR HEMOGLOBIN CONC (BEAKER) (test 31.3 GM/DL 32.2-35.5 vakk=992) RED CELL DISTRIBUTION WIDTH (BEAKER) (test 17.8 % 11.7-14.4 aqmk=447) PLATELET COUNT (BEAKER) (test cdph=370) 92 K/CU MM 150-450 MEAN PLATELET VOLUME (BEAKER) (test zkot=780) 10.3 fL 9.4-12.3 NUCLEATED RED BLOOD CELLS (BEAKER) (test 0 /100 WBC 0-0 bjzv=039) NEUTROPHILS RELATIVE PERCENT (BEAKER) (test 81 % mcwt=242) LYMPHOCYTES RELATIVE PERCENT (BEAKER) (test 6 % lmal=730) MONOCYTES RELATIVE PERCENT (BEAKER) (test 9 % whlk=898) EOSINOPHILS RELATIVE PERCENT (BEAKER) (test 3 % pofb=776) BASOPHILS RELATIVE PERCENT (BEAKER) (test 1 % uqsj=214) NEUTROPHILS ABSOLUTE COUNT (BEAKER) (test 4.23 K/ L 1.56-6.13 iear=110) LYMPHOCYTES ABSOLUTE COUNT (BEAKER) (test 0.29 K/ L 1.18-3.74 dutl=987) MONOCYTES ABSOLUTE COUNT (BEAKER) (test oovk=724) 0.49 K/ L 0.24-0.36 EOSINOPHILS ABSOLUTE COUNT (BEAKER) (test 0.14 K/ L 0.04-0.36 ytbi=081) BASOPHILS ABSOLUTE COUNT (BEAKER) (test zraz=847) 0.06 K/ L 0.01-0.08 IMMATURE GRANULOCYTES-RELATIVE PERCENT (BEAKER) 0 % 0-1 (test xitx=1364) COMPREHENSIVE METABOLIC [id number] 14:28:00 Test Item Value Reference Range Comments TOTAL PROTEIN (BEAKER) 7.6 gm/dL 6.0-8.3 (test ouik=052) ALBUMIN (BEAKER) (test 3.6 g/dL 3.5-5.0 jksb=9917) ALKALINE PHOSPHATASE 144 U/L 40-150 (BEAKER) (test mqqi=436) BILIRUBIN TOTAL (BEAKER) 1.1 mg/dL 0.2-1.2 (test nshl=060) SODIUM (BEAKER) (test 135 meq/L 136-145 xlkx=584) POTASSIUM (BEAKER) (test 3.6 meq/L 3.5-5.1 sgzi=028) CHLORIDE (BEAKER) (test 103 meq/L 98-107 nlwl=690) CO2 (BEAKER) (test 22 meq/L 22-29 dtab=933) BLOOD UREA NITROGEN 16 mg/dL 7-21 (BEAKER) (test vazl=868) CREATININE (BEAKER) (test 1.82 mg/dL 0.57-1.25 hijd=505) GLUCOSE RANDOM (BEAKER) 102 mg/dL 70-105 (test yqzd=242) CALCIUM (BEAKER) (test 9.1 mg/dL 8.4-10.2 ipbl=014) AST (SGOT) (BEAKER) (test 39 U/L 5-34 bygy=891) ALT (SGPT) (BEAKER) (test 14 U/L 6-55 lchc=172) EGFR (BEAKER) (test 30 mL/min/1.73 sq m ESTIMATED GFR IS NOT esrv=5350) ACCURATE CREATININE CLEARANCE IN PREDICTING GLOMERULAR FILTRATION RATE. ESTIMATED GFR IS NOT APPLICABLE FOR DIALYSIS PATIENTS. BILIRUBIN, [id number] 14:28:00 Test Item Value Reference Range Comments BILIRUBIN DIRECT (BEAKER) (test tnnq=959) 0.6 mg/dL 0.1-0.5 IRON, TIBC, % SAT. (WITHOUT FERRITIN)[id number] 14:26:00 Test Item Value Reference Range Comments IRON (BEAKER) (test karc=955) 37 ug/dL 40-160 TOTAL IRON BINDING CAPACITY (BEAKER) (test 219 ug/dL 250-450 oysx=643) IRON % SATURATION (2) (BEAKER) (test ulje=2370) 17 % 20-55 [id number] 14:25:00 Test Item Value Reference Range Comments ALPHA-1 ANTITRYPSIN (BEAKER) (test khah=341) 151.80 mg/dL 90.00-200.00 PROTHROMBIN [id number] 14:03:00 Test Item Value Reference Range Comments PROTIME (BEAKER) (test bybr=262) 17.2 seconds 11.7-14.7 INR (BEAKER) (test cvpr=132) 1.4 <=5.9 RECOMMENDED COUMADIN/WARFARIN INR THERAPY RANGESSTANDARD DOSE: 2.0 - 3.0 Includes: PROPHYLAXIS forvenous thrombosis, systemic embolization; TREATMENT for venous thrombosis and/or pulmonary embolus.HIGH RISK: Target INR is 2.5-3.5 for patients with mechanical heart valves.
[2019-02-10 11:42] LABS: Absolute Lymphocytes (CBC) 0.2 K/uL (0.7-4.9); Basophils % 2.7 % (0-1.3); Eosinophils % 7.4 % (0-4.4); Hematocrit 23.1 % (36.0-45.0); Lymphocytes % 4.6 % (15.3-44.8); MPV 8.6 fL (7.6-11.3); Monocytes % 14.1 % (3.3-12.3); RBC Red Blood Cell Count 2.56 M/uL (3.86-4.86)
[2019-02-10] MEDS ORDERED: ALBUMIN HUMAN 25% 100 ML IV ONE ×2 (12:15→14:00)
[2019-02-10 12:20] LABS: Albumin 2.7 g/dL (3.4-5.0); Bilirubin Direct 0.4 mg/dL (0-0.2); Bilirubin Total 0.8 mg/dL (0.2-1.0); Potassium 3.4 mmol/L (3.5-5.1); Protein, Total 7.6 g/dL (6.4-8.2)
[2019-02-10] MEDS ORDERED: ALBUMIN HUMAN 25% 50 ML IV ONE (12:28)
[2019-02-10] MEDS ORDERED: NA CHLORIDE 0.9% 1,000 ML ONE (12:28)
[2019-02-10 12:44] LABS: Anisocytosis 1+; Blood Morphology Comment NOTED (NOT SEEN); Platelet Estimate ADEQ; Urine White Blood Cell Casts OK
--- NOTE | 2019-02-10 12:46 | RAD REPORT ---
EXAM DESCRIPTION: RAD - Chest Single View - 02/10/2019 12:28 pm CLINICAL HISTORY: Cough, shortness of breath, cirrhosis, ascites COMPARISON: December 06, 2018 TECHNIQUE: AP portable chest image was obtained 1224 hours . FINDINGS: Lung volumes are low. No consolidation or mass. No failure or volume overload findings. No free air under the diaphragm. Heart and vasculature are normal. No measurable pleural effusion and no pneumothorax. No acute bony abnormality seen. No acute aortic findings suspected. IMPRESSION: No acute cardiopulmonary process.
[2019-02-10 13:52] LABS: Magnesium 2.4 mg/dL (1.8-2.4); NT PRO-BNP 64 pg/mL (<125); Troponin (Emerg Dept Use Only) < 0.02 ng/mL (0.0-0.045)
[2019-02-10] MEDS ORDERED: PANTOPRAZOLE 40 MG INJ ONE ×3 (13:59→15:41)
[2019-02-10 14:04] LABS: Hematocrit 23.1 % (36.0-45.0); RBC Red Blood Cell Count 2.54 M/uL (3.86-4.86)
--- NOTE | 2019-02-10 14:14 | RAD REPORT ---
EXAM DESCRIPTION: US - Paracentesis Proc Guidance - 02/10/2019 12:40 pm CLINICAL HISTORY: Liver disease with ascites FINDINGS: The risks, benefits and alternatives to the procedure were explained to the patient and in formed consent obtained. The skin and subcutaneous tissues were anesthetized with Lidocaine. Under sonographic guidance an 8 F rench catheter was placed into the right lower quadrant. 12 liters of whitish yellow fluid removed The patient experienced no immediate complication. IMPRESSION: Paracentesis
[2019-02-10 14:23] LABS: Potassium 3.5 mmol/L (3.5-5.1)
[2019-02-10 14:36] LABS: Protime INR 1.07
--- NOTE | 2019-02-10 15:34 | EDPHYS ---
Physician Documentation [facility] Name: Amauri Miller Age: 48 yrs Sex: Female : 1970 Arrival Date: 02/10/2019 Time: 10:42 Bed 19 Private MD: JAGDISH Physician Josh Guevara HPI: 02/10 11:39 This 48 yrs old Female presents to ER via Wheelchair with complaints of bro Abdominal Swelling. 11:39 The patient presents with abdominal pain in the upper abdomen, in the lower abdomen, bro abdominal distention in the upper abdomen, in the lower abdomen. Onset: The symptoms/episode began/occurred 2 day(s) ago. The symptoms do not radiate. Associated signs and symptoms: none. The symptoms are described as constant, crampy. Modifying factors: The symptoms are alleviated by nothing, the symptoms are aggravated by nothing. Severity of pain: At its worst the pain was mild in the emergency department the pain is unchanged. The patient has not experienced similar symptoms in the past. 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 LMP N/A - Irregular menses bp Historical: - Allergies: 11:07 No Known Allergies; bp - Home Meds: 11:47 ciprofloxacin chl 500 mg once dialy for 30 days [Active]; ferrous sulfate 134 mg (27 mg tr5 iron) Oral tab [Active]; furosemide 40 mg Oral tab 1 tab once daily [Active]; folic acid 1 mg Oral tab 1 tab once daily [Active]; multivitamin with minerals Oral tab [Active]; lactulose 20 gram/30 mL Oral soln 30 mL 3 times per day [Active]; nadolol 20 mg Oral tab 1 tab once daily [Active]; omeprazole 20 mg Oral cpDR 2 caps 2 times per day [Active]; potassium chloride 20 mEq Oral TbTQ 1 tab once daily [Active]; rifaximin 550 mg tab Oral 1 tab 2 times per day [Active]; sodium bicarbonate 650 mg Oral tab twice a day [Active]; tramadol 50 mg Oral tab 1 tab every 6 hours [Active]; vitamin b1 [Active]; Vitamin B-6 Oral [Active]; Zofran (as hydrochloride) 4 mg Oral tab 2 tabs for one tab as needed [Active]; - PMHx: 11:07 Anemia; Cirrhosis; esophageal varices; Hernia; second one, not repaired; bp 11:47 possible htn; tr5 - Immunization history:: Adult Immunizations up to date. - Social history:: Smoking status: Patient/guardian denies using tobacco. - Ebola Screening: : No symptoms or risks identified at this time. - Family history:: not pertinent. ROS: 11:39 Constitutional: Negative for fever, chills, and weight loss, Eyes: Negative for injury, bro pain, redness, and discharge, ENT: Negative for injury, pain, and discharge, Neck: Negative for injury, pain, and swelling, Cardiovascular: Negative for chest pain, palpitations, and edema, Respiratory: Negative for shortness of breath, cough, wheezing, and pleuritic chest pain, Back: Negative for injury and pain, : Negative for injury, bleeding, discharge, and swelling, MS/Extremity: Negative for injury and deformity, Skin: Negative for injury, rash, and discoloration, Neuro: Negative for headache, weakness, numbness, tingling, and seizure. 11:39 Abdomen/GI: Positive for abdominal pain, abdominal distension, of the right upper quadrant, left upper quadrant, right lower quadrant and left lower quadrant. Exam: 11:39 Constitutional: This is a well developed, well nourished patient who is awake, alert, bro and in no acute distress. Head/Face: Normocephalic, atraumatic. Eyes: Pupils equal round and reactive to light, extra-ocular motions intact. Lids and lashes normal. Conjunctiva and sclera are non-icteric and not injected. Cornea within normal limits. Periorbital areas with no swelling, redness, or edema. ENT: Nares patent. No nasal discharge, no septal abnormalities noted. Tympanic membranes are normal and external auditory canals are clear. Oropharynx with no redness, swelling, or masses, exudates, or evidence of obstruction, uvula midline. Mucous membranes moist. Neck: Trachea midline, no thyromegaly or masses palpated, and no cervical lymphadenopathy. Supple, full range of motion without nuchal rigidity, or vertebral point tenderness. No Meningismus. Chest/axilla: Normal chest wall appearance and motion. Nontender with no deformity. No lesions are appreciated. Cardiovascular: Regular rate and rhythm with a normal S1 and S2. No gallops, murmurs, or rubs. Normal PMI, no JVD. No pulse deficits. Respiratory: Lungs have equal breath sounds bilaterally, clear to auscultation and percussion. No rales, rhonchi or wheezes noted. No increased work of breathing, no retractions or nasal flaring. Back: No spinal tenderness. No costovertebral tenderness. Full range of motion. Female : Normal external genitalia. Skin: Warm, dry with normal turgor. Normal color with no rashes, no lesions, and no evidence of cellulitis. MS/ Extremity: Pulses equal, no cyanosis. Neurovascular intact. Full, normal range of motion. Neuro: Awake and alert, GCS 15, oriented to person, place, time, and situation. Cranial nerves II-XII grossly intact. Motor strength 5/5 in all extremities. Sensory grossly intact. Cerebellar exam normal. Normal gait. Psych: Awake, alert, with orientation to person, place and time. Behavior, mood, and affect are within normal limits. 11:39 Abdomen/GI: Inspection: distension, Bowel sounds: normal, Palpation: mild abdominal tenderness, Liver: no appreciated palpable abnormalities, Hernia: not appreciated, TENSE ASCITES. 14:47 Abdomen/GI: Rectal exam: is unremarkable, rectal tone normal, Stool: normal, guaiac bro negative, hemorrhoid(s), are not appreciated, mass, is not appreciated, swelling, is not appreciated, tenderness, is not appreciated, fecal impaction, is not appreciated. Vital Signs: 11:05 BP 103 / 61; Pulse 112; Resp 20; Temp 98.9; Pulse Ox 100% ; Weight 61.69 kg; Height 5 bp ft. 6 in. (167.64 cm); 14:02 BP 111 / 68; Pulse 100; Resp 16; Pulse Ox 100% ; tr5 11:05 Body Mass Index 21.95 (61.69 kg, 167.64 cm) bp MDM: 11:03 Patient medically screened. bro 11:40 Data reviewed: vital signs, nurses notes, lab test result(s), EKG, radiologic studies, bro plain films. 02/10 11:25 Order name: Basic Metabolic Panel; Complete Time: 13:15 ms 02/10 11:25 Order name: CBC with Diff ms 02/10 11:25 Order name: Creatinine for Radiology; Complete Time: 13:15 ms 02/10 11:25 Order name: Hepatic Function; Complete Time: 13:15 ms 02/10 11:25 Order name: Lipase; Complete Time: 13:15 ms 02/10 11:37 Order name: Magnesium [facility] 02/10 11:37 Order name: NT PRO-BNP [facility] 02/10 11:37 Order name: PT-INR [facility] 02/10 11:37 Order name: Troponin (emerg Dept Use Only) [facility] 02/10 11:47 Order name: CBC with Automated Diff; Complete Time: 13:15 EDMS 02/10 12:13 Order name: Type And Screen [facility] 02/10 12:45 Order name: CBC Smear Scan; Complete Time: 13:15 EDMS 02/10 13:39 Order name: CBC w/o diff [facility] 02/10 13:39 Order name: Chem 7 [facility] 02/10 11:25 Order name: IV Saline Lock; Complete Time: 12:09 ms 02/10 11:25 Order name: Labs collected and sent; Complete Time: 12:09 ms 02/10 11:37 Order name: XRAY Chest (1 view); Complete Time: 13:15 [facility] 02/10 11:37 Order name: EKG; Complete Time: 11:39 [facility] 02/10 11:37 Order name: Cardiac monitoring; Complete Time: 12:09 [facility] 02/10 11:55 Order name: Paracentesis Proc Guidance EDPR 02/10 14:01 Order name: Diet Regular; Complete Time: 15:14 [facility] 02/10 15:10 Order name: CBC without Diff EDPR 02/10 15:11 Order name: Basic Metabolic Panel EDPR 02/10 15:25 Order name: Regular EDPR 02/10 15:35 Order name: Packed RBC Leukored [facility] 02/10 11:37 Order name: EKG - Nurse/Tech; Complete Time: 12:09 [facility] 02/10 11:37 Order name: O2 Per Protocol; Complete Time: 12:09 [facility] 02/10 11:37 Order name: O2 Sat Monitoring; Complete Time: 12:09 [facility] Administered Medications: 13:56 Drug: Albumin 25 grams Volume: 100 ml; Route: IVPB; Site: right forearm; aa5 14:20 Follow up: Response: No adverse reaction; IV Status: Completed infusion tr5 13:56 Drug: ProTONIX 40 mg Route: IVP; Site: right forearm; aa5 14:33 Follow up: Response: No adverse reaction tr5 14:32 Drug: Albumin 25 grams Volume: 100 ml; Route: IVPB; Site: left forearm; tr5 14:54 Follow up: Response: No adverse reaction; IV Status: Completed infusion tr5 14:55 Drug: NS 0.9% 1000 ml Route: IV; Rate: 75 ml/hr; Site: right forearm; tr5 15:29 Drug: ProTONIX 40 mg Route: IVP; Site: right forearm; tr5 Disposition: 02/10/19 14:41 Hospitalization ordered by Charanjit [place] for Observation. Preliminary diagnosis are Anemia, unspecified, Unspecified cirrhosis of liver, Ascites. - Bed requested for Telemetry/MedSurg (observation). - Status is Observation. tr5 - Condition is Fair. - Problem is new. - Symptoms have improved. UTI on Admission? No Signatures: Dispatcher [employer] Lillian Barragan, RN RN Josh Browne MD MD cha Solis, Maria ms Calderon, Audri, RN RN aa5 Abraham Hirsch RN Jose Elias Julio RN RN tr5 Corrections: (The following items were deleted from the chart) 16:05 14:41 Hospitalization Ordered by Charanjit [place] DO for Observation. Preliminary dw diagnosis is Anemia, unspecified; Unspecified cirrhosis of liver; Ascites. Bed requested for Telemetry/MedSurg (observation). Status is Observation. Condition is Fair. Problem is new. Symptoms have improved. UTI on Admission? No. [facility] 16:56 16:05 02/10/2019 14:41 Hospitalization Ordered by Charanjit [place] DO for Observation. tr5 Preliminary diagnosis is Anemia, unspecified; Unspecified cirrhosis of liver; Ascites. Bed requested for Telemetry/MedSurg (observation). Status is Observation. Condition is Fair. Problem is new. Symptoms have improved. UTI on Admission? No. dw
--- NOTE | 2019-02-10 15:34 | ER ---
Nurse's Notes [facility] Name: Amauri Miller Age: 48 yrs Sex: Female : 1970 Arrival Date: 02/10/2019 Time: 10:42 Bed 19 Private MD: Diagnosis: Anemia, unspecified;Unspecified cirrhosis of liver;Ascites Presentation: 02/10 11:05 Presenting complaint: Patient states: FLUID OVERLOAD AND SHORTNESS OF BREATH 2/2 bp CIRRHOSIS. Transition of care: patient was not received from another setting of care. Onset of symptoms is unknown. Risk Assessment: Do you want to hurt yourself or someone else? Patient reports no desire to harm self or others. Initial Sepsis Screen: Does the patient meet any 2 criteria? HR > 90 bpm. No. Patient's initial sepsis screen is negative. Does the patient have a suspected source of infection? No. Patient's initial sepsis screen is negative. Care prior to arrival: LAST PARACENTESIS x2 WK. 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 - Irregular menses bp Historical: - Allergies: 11:07 No Known Allergies; bp - Home Meds: 11:47 ciprofloxacin chl 500 mg once dialy for 30 days [Active]; ferrous sulfate 134 mg (27 mg tr5 iron) Oral tab [Active]; furosemide 40 mg Oral tab 1 tab once daily [Active]; folic acid 1 mg Oral tab 1 tab once daily [Active]; multivitamin with minerals Oral tab [Active]; lactulose 20 gram/30 mL Oral soln 30 mL 3 times per day [Active]; nadolol 20 mg Oral tab 1 tab once daily [Active]; omeprazole 20 mg Oral cpDR 2 caps 2 times per day [Active]; potassium chloride 20 mEq Oral TbTQ 1 tab once daily [Active]; rifaximin 550 mg tab Oral 1 tab 2 times per day [Active]; sodium bicarbonate 650 mg Oral tab twice a day [Active]; tramadol 50 mg Oral tab 1 tab every 6 hours [Active]; vitamin b1 [Active]; Vitamin B-6 Oral [Active]; Zofran (as hydrochloride) 4 mg Oral tab 2 tabs for one tab as needed [Active]; - PMHx: 11:07 Anemia; Cirrhosis; esophageal varices; Hernia; second one, not repaired; bp 11:47 possible htn; tr5 - Immunization history:: Adult Immunizations up to date. - Social history:: Smoking status: Patient/guardian denies using tobacco. - Ebola Screening: : No symptoms or risks identified at this time. - Family history:: not pertinent. Screenin:15 Abuse screen: Denies threats or abuse. Nutritional screening: No deficits noted. tr5 Tuberculosis screening: No symptoms or risk factors identified. Fall Risk No fall in past 12 months (0 pts). No secondary diagnosis (0 pts). IV access (20 points). Ambulatory Aid- None/Bed Rest/Nurse Assist (0 pts). Gait- Normal/Bed Rest/Wheelchair (0 pts) Mental Status- Oriented to own ability (0 pts). Total Mora Fall Scale indicates No Risk (0-24 pts). Assessment: 11:06 General: Appears comfortable, Behavior is calm, cooperative. Pain: Complains of pain in tr5 abdomen Pain does not radiate. Pain currently is 9 out of 10 on a pain scale. Quality of pain is described as aching, crampy, Is continuous. Neuro: Level of Consciousness is awake, alert, Oriented to person, place, time, Jet Mechanic are equal bilaterally Moves all extremities. Cardiovascular: Heart tones present Bruits absent Capillary refill < 3 seconds Pulses are all present. Edema is absent. Respiratory: Airway is patent Trachea midline Respiratory effort is even, Respiratory pattern is symmetrical, Breath sounds are clear bilaterally. GI: Bowel sounds diminished in right upper quadrant, left upper quadrant, right lower quadrant and left lower quadrant Abd is rigid X 4 quads. Reports lower abdominal pain, upper abdominal pain. : No signs and/or symptoms were reported regarding the genitourinary system. EENT: No signs and/or symptoms were reported regarding the EENT system. Derm: Skin is intact, Skin is dry, Skin is pink, warm \T\ dry. Skin temperature is warm. Musculoskeletal: Capillary refill < 3 seconds, Range of motion: intact in all extremities, 11:41 Reassessment: Patient and/or family updated on plan of care and expected duration. Pain tr5 level reassessed. 13:36 Reassessment: Pt back from radiology. Ultrasound guided Paracentesis completed by Dr. maria isabel Marcus, 12 Liters drained. . 13:55 Reassessment: Repeat CBC and Chem 7 drawn and sent to lab. Pt lying down in bed, aa5 watching TV. Equal unlabored, respirations. Pt requesting to eat, was notified and stated to keep pt NPO at this time. Pt was notified. . Vital Signs: 11:05 BP 103 / 61; Pulse 112; Resp 20; Temp 98.9; Pulse Ox 100% ; Weight 61.69 kg; Height 5 bp ft. 6 in. (167.64 cm); 14:02 BP 111 / 68; Pulse 100; Resp 16; Pulse Ox 100% ; tr5 11:05 Body Mass Index 21.95 (61.69 kg, 167.64 cm) bp ED Course: 10:42 Patient arrived in ED. as 11:03 Josh Guevara MD is Attending Physician. bro 11:05 Arm band placed on. bp 11:06 Triage completed. bp 11:15 Patient has correct armband on for positive identification. Bed in low position. Call tr5 light in reach. Side rails up X 1. 11:41 Jose Elias Huynh, RN is Primary Nurse. tr5 12:26 Patient moved to radiology via stretcher. tr5 12:35 XRAY Chest (1 view) In Process Unspecified. EDMS 12:40 Paracentesis Proc Guidance In Process Unspecified. EDMS 14:40 Charanjit [place] DO is Hospitalizing Provider. bro 16:00 Awaiting bed assignment. tr5 16:55 No provider procedures requiring assistance completed. Patient admitted, IV remains in tr5 place. Administered Medications: 13:56 Drug: Albumin 25 grams Volume: 100 ml; Route: IVPB; Site: right forearm; aa5 14:20 Follow up: Response: No adverse reaction; IV Status: Completed infusion tr5 13:56 Drug: ProTONIX 40 mg Route: IVP; Site: right forearm; aa5 14:33 Follow up: Response: No adverse reaction tr5 14:32 Drug: Albumin 25 grams Volume: 100 ml; Route: IVPB; Site: left forearm; tr5 14:54 Follow up: Response: No adverse reaction; IV Status: Completed infusion tr5 14:55 Drug: NS 0.9% 1000 ml Route: IV; Rate: 75 ml/hr; Site: right forearm; tr5 15:29 Drug: ProTONIX 40 mg Route: IVP; Site: right forearm; tr5 Outcome: 14:41 Decision to Hospitalize by Provider. bro 16:55 Admitted to Med/surg accompanied by tech, via stretcher, with chart. tr5 16:55 Condition: stable 16:55 Instructed on the need for admit. 16:56 Patient left the ED. tr5 Signatures: Dispatcher [employer] EDJosh Craig MD MD cha Martinez, Amelia as Calderon, Audri, RN RN aa5 Abraham Hirsch RN RN bp Rodriguez, Tommie, RN RN tr5 Corrections: (The following items were deleted from the chart) 14:07 13:55 Reassessment: Repeat CBC and Chem 7 drawn and sent to lab. Pt lying down in bed, aa5 watching TV. Equal unlabored, respirations.. aa5
--- NOTE | 2019-02-10 15:36 | P.HP ---
Certification for Inpatient Patient admitted to: Observation With expected LOS: <2 Midnights Patient will require the following post-hospital care: None Practitioner: I am a practitioner with admitting privileges, knowledge of patient current condition, hospital course, and medical plan of care. Services: Services provided to patient in accordance with Admission requirements found in Title 42 Section 412.3 of the Code of Federal Regulations Patient History Date of Service: 02/10/19 Primary Care Provider: Dr. Leigh-GI Reason for admission: Shortness of breath, abdominal ascites History of Present Illness: 48-year-old female with history of alcoholic cirrhosis, multiple recurrent paracentesis, anemia of chronic disease, portal hypertensive gastropathy, and varices presented to the ER with increasing shortness of breath and abdominal distention related to ascites. Patient seen by GI locally. Patient was to have scheduled outpatient paracentesis tomorrow but she could not wait. Patient reported worsening shortness of breath. She came to the ER for further evaluation. In the ER patient evaluated. She denied it nausea, vomiting, hematemesis, melena or rectal bleeding. Radiology assisted paracentesis was done in the emergency room. 12 L removed. Albumin given thereafter. On lab hemoglobin 7.4 with repeat at 7.5. This is slightly low then her average. Sodium 137, potassium 3.5, BUN of 16, creatinine 0.95 with a GFR 63. AST 61, ALT 67. Lipase 261. INR within normal range. Chest x-ray unremarkable. Due to the severity of her symptoms and anemia patient was admitted for observation. I saw the patient ER, she appeared comfortable. She just had her paracentesis. Patient reports that she did drink 1 beer the other day. She is trying very hard to quit Allergies No Known Allergies Allergy (Verified 01/21/19 08:24) Home medications list reviewed: Yes Home Medications: Diphenhydramine [Benadryl*] 2 tab PO BEDTIME PRN 04/06/18 Ondansetron HCl [Zofran] 4 mg PO Q8H PRN 04/06/18 Melatonin/Pyridoxine [Melatonin 5 mg Tablet] 10 mg PO BEDTIME 09/10/18 Pyridoxine [Vitamin B-6*] 100 mg PO DAILY 09/10/18 Ferrous Sulfate [Iron] 325 mg PO BID #60 tablet 09/27/18 Folic Acid 1 mg PO DAILY #30 tablet 09/27/18 Lactulose [Cephulac*] 30 ml PO DAILY #1 bottle 09/27/18 Pantoprazole [Protonix Tab*] 40 mg PO BIDAC #60 tab 09/27/18 Rifaximin [Xifaxan] 550 mg PO BID #60 tablet 09/27/18 Spironolactone [Aldactone*] 25 mg PO DAILY #30 tab 09/27/18 Thiamine HCl [Vitamin B-1*] 100 mg PO DAILY #30 tablet 09/27/18 Midodrine HCl [Proamatine*] 5 mg PO TID #90 tab 10/10/18 Trazodone [Desyrel*] 50 mg PO BEDTIME PRN #15 tablet MDD 1 10/10/18 - Past Medical/Surgical History Diabetic: No -: Severe alcoholic cirrhosis -: Severe abdominal ascites with Multiple paracentesis -: History of GI bleed with esophageal varices -: Portal hypertensive gastropathy -: Anemia of chronic disease with iron deficiency -: Multiple paracentesis -: Hernia repair -: Esophageal banding with multiple EGD's Psychosocial/ Personal History: Patient is single. She has 3 children. She does not work. - Family History Father -: Liver disease Notes: patient adopted, does not any history of her parents - Social History Smoking Status: Former smoker Alcohol use: Yes CD- Drugs: No Caffeine use: Yes Place of Residence: Home Review of Systems General: Weakness, As per HPI Eyes: Unremarkable ENT: Unremarkable Respiratory: Shortness of Breath, As per HPI Cardiovascular: Unremarkable Gastrointestinal: Distention, As per HPI Genitourinary: Unremarkable Musculoskeletal: Unremarkable Integumentary: Unremarkable Neurological: Unremarkable Lymphatics: Unremarkable Physical Examination - Physical Exam General: Alert, In no apparent distress, Oriented x3, Cooperative HEENT: Atraumatic, Normocephalic, PERRLA, Mucous membr. moist/pink Neck: Supple, No Thyromegaly Respiratory: Clear to auscultation bilaterally, Normal air movement Cardiovascular: Normal pulses, Regular rate/rhythm Gastrointestinal: Normal bowel sounds, Soft and benign, No masses, No rebound, No guarding, Ascites (Severe abdominal ascites noted status post paracentesis) Musculoskeletal: No erythema, No tenderness, No warmth Integumentary: No tenderness/swelling, No erythema, No warmth, No cyanosis Neurological: Normal speech, Normal strength at 5/5 x4 extr, Normal tone, Normal affect - Studies Laboratory Data (last 24 hrs) 02/10/19 13:55: Sodium 137, Potassium 3.5, BUN 16, Creatinine 0.95, Glucose 95 02/10/19 13:55: WBC 3.6 L, Hgb 7.5 L*, Hct 23.1 L, Plt Count 163 02/10/19 11:30: PT 12.6 H, INR 1.07 02/10/19 11:30: Magnesium 2.4 02/10/19 11:30: Creatinine 0.97 02/10/19 11:30: WBC 4.0 L D, Hgb 7.4 L* D, Hct 23.1 L D, Plt Count 168 02/10/19 11:30: Sodium 137, Potassium 3.4 L, BUN 16, Creatinine 1.00, Glucose 98 , Total Bilirubin 0.8, AST 67 H, ALT 61, Alkaline Phosphatase 157 H, Lipase 261 Assessment and Plan - Plan Impression: Shortness of breath secondary to severe ascites with history of multiple recurrent paracentesis status post paracentesis, 12 L Chronic alcoholic cirrhosis Chronic anemia with iron deficiency complicated with history of GI bleed/ esophageal varices/portal hypertensive gastropathy Alcohol abuse Plan: Patient will be admitted for observation. Patient is status post paracentesis. 12 L removed. Albumin given in the emergency room post paracentesis. Patient less short of breath at this time. Will maintain sats above 90%. Wean off oxygen. Patient with history of anemia. Hemoglobin 7.5. This is below her average. Will transfuse 1 unit of blood. Will recheck hemoglobin after transfusion. If above 8.0 then no need for further transfusion. No evidence of GI bleed is noted at this time. Guaiac stool negative. Patient denies any hematemesis or melena. Alcohol cessation addressed in detail. Compliance with medication addressed. Anticipate discharge within the next 24 hr with clinical improvement and stability of her anemia. Discharge Plan: Home Plan to discharge in: 24 Hours - Advance Directives Does patient have a Living Will: No Does patient have a Durable POA for Healthcare: No - Code Status/Comfort Care Code Status Assessed: Yes (Patient is full code) Time Spent Managing Pts Care (In Minutes): 55
[2019-02-10] MEDS ORDERED: TRAMADOL HCL 50 MG TAB PO PRN (16:52)
[2019-02-10] MEDS ORDERED: ONDANSETRON 4 MG/2 ML VIAL IV PRN (16:52)
[2019-02-10] MEDS ORDERED: ACETAMINOPHEN 500 MG TAB PO PRN (16:52)
[2019-02-10] MEDS: HYDROCODONE/APAP 7.5/325 MG TAB PO PRN ×2 (17:29→23:14)
[2019-02-10 17:50] VITALS: BMI 21.9
[2019-02-10] MEDS ORDERED: hydrOXYzine HCl 25 MG TAB PO PRN (18:18)
[2019-02-10] MEDS ORDERED: CETIRIZINE HCL 5 MG TABLET PO ONE (18:26)
[2019-02-10] MEDS: PANTOPRAZOLE 40MG TABLET PO SCH (18:31)
[2019-02-10] MEDS ORDERED: NA CHLORIDE 0.9% 250 ML ONE (18:44)
[2019-02-10] MEDS ORDERED: FUROSEMIDE 20 MG/ 2ML VIAL IV SCH (19:00)
[2019-02-10] MEDS: Rifaximin 550 MG Tab PO SCH (21:40)
[2019-02-10] MEDS: LACTULOSE 20 GM/30 ML UCUP PO SCH (21:40)
[2019-02-10] MEDS: FERROUS SULFATE 325 MG TAB PO SCH (21:41)
[2019-02-10 23:08] LABS: Hematocrit 23.6 % (36.0-45.0)
[2019-02-11] MEDS ORDERED: NA CHLORIDE 0.9% 100 ML IV ONE (01:20)
[2019-02-11 06:19] LABS: Hematocrit 26.1 % (36.0-45.0); RBC Red Blood Cell Count 2.95 M/uL (3.86-4.86)
[2019-02-11 06:20] LABS: Absolute Lymphocytes (CBC) 0.2 K/uL (0.7-4.9); Basophils % 1.6 % (0-1.3); Eosinophils % 8.6 % (0-4.4); Lymphocytes % 3.7 % (15.3-44.8); MPV 8.8 fL (7.6-11.3); Monocytes % 11.3 % (3.3-12.3)
[2019-02-11 07:08] LABS: Albumin 3.1 g/dL (3.4-5.0); Bilirubin Total 2.2 mg/dL (0.2-1.0); Potassium 3.6 mmol/L (3.5-5.1); Protein, Total 7.1 g/dL (6.4-8.2)
[2019-02-11] MEDS: HYDROCODONE/APAP 7.5/325 MG TAB PO PRN (07:55)
[2019-02-11] MEDS: LACTULOSE 20 GM/30 ML UCUP PO SCH (08:00)
[2019-02-11] MEDS: FERROUS SULFATE 325 MG TAB PO SCH (08:00)
[2019-02-11] MEDS: PANTOPRAZOLE 40MG TABLET PO SCH (08:01)
[2019-02-11] MEDS: Rifaximin 550 MG Tab PO SCH (08:10)
[2019-02-11] MEDS ORDERED: SPIRONOLACTONE 25 MG TABLET PO SCH (09:00)
--- NOTE | 2019-02-11 09:12 | P.DS ---
Admission Date: 02/10/19 Discharge Date: 02/11/19 Primary Care Provider: Dr. Leigh-GI Disposition: ROUTINE DISCHARGE Discharge Condition: GOOD Reason for Admission: Shortness of breath, abdominal ascites Consultations: none Procedures: Medical Problem List: Shortness of breath secondary to severe ascites with history of multiple recurrent paracentesis status post paracentesis, 12 L Chronic alcoholic cirrhosis Acute on Chronic anemia with iron deficiency complicated with history of GI bleed/esophageal varices/portal hypertensive gastropathy, status post 2 units of packed red blood cells transfused Alcohol abuse Chronic orthostatic hypotension on midodrine Brief History of Present Illness: 48-year-old female with history of alcoholic cirrhosis, multiple recurrent paracentesis, anemia of chronic disease, portal hypertensive gastropathy, and varices presented to the ER with increasing shortness of breath and abdominal distention related to ascites. Patient seen by GI locally. Patient was to have scheduled outpatient paracentesis tomorrow but she could not wait. Patient reported worsening shortness of breath. She came to the ER for further evaluation. In the ER patient evaluated. She denied it nausea, vomiting, hematemesis, melena or rectal bleeding. Radiology assisted paracentesis was done in the emergency room. 12 L removed. Albumin given thereafter. On lab hemoglobin 7.4 with repeat at 7.5. This is slightly low then her average. Sodium 137, potassium 3.5, BUN of 16, creatinine 0.95 with a GFR 63. AST 61, ALT 67. Lipase 261. INR within normal range. Chest x-ray unremarkable. Due to the severity of her symptoms and anemia patient was admitted for observation. I saw the patient ER, she appeared comfortable. She just had her paracentesis. Patient reports that she did drink 1 beer the other day. She is trying very hard to quit Hospital Course: Patient presented with shortness of breath secondary to severe ascites. Patient with history of multiple recurrent paracentesis due to chronic alcoholic cirrhosis. Patient was to have an outpatient paracentesis but the patient could not wait. She came to the ER for further evaluation and treatment. Patient with severe ascites. Radiology assisted paracentesis was done. 12 L removed. Albumin given. Patient also had some anemia. This was below her baseline. The patient was admitted for observation. During the course of her stay patient received 2 units of packed red blood cells. Hemoglobin improved. Patient currently stable this time. No significant shortness of breath noted. At discharge patient will continue her Xifaxan 550 mg 1 pill twice daily and lactulose 30 mg 3 times a day. Recommend to follow up with her food service specialist. Patient will continue with her scheduled outpatient paracentesis in the near future. Patient in process of seen hepatology for further treatment. Patient with acute on chronic anemia. As mentioned above patient received 2 units of packed red blood cells. Hemoglobin now stable. At discharge she will continue with iron 325 mg 1 pill twice daily, folic acid 1 pill daily, and thiamine 100 mg daily. Recommend to recheck CBC in 1-2 weeks to monitor progress. Patient had no melena, rectal bleeding or hematemesis. Patient with prior history of GI bleed with esophageal varices. At discharge she will also continue with Protonix 40 mg 1 pill twice daily. Patient with history of chronic orthostatic hypotension. Patient takes midodrine to maintain blood pressure. At discharge, she will continue with midodrine 5 mg 1 pill twice daily. Patient with alcohol abuse. Patient has being decreasing her alcohol intake. Recommend to continue with alcohol cessation. Patient plans to eventually quit. This was highly encouraged. Vital Signs/Physical Exam: Temp Pulse Resp BP Pulse Ox 99.0 F 82 16 94/57 L 99 02/11/19 04:00 02/11/19 08:22 02/11/19 04:00 02/11/19 08:22 02/11/19 04:00 General: Alert, In no apparent distress, Oriented x3, Cooperative HEENT: Atraumatic Neck: Supple Respiratory: Clear to auscultation bilaterally, Normal air movement Cardiovascular: Normal pulses, Regular rate/rhythm Gastrointestinal: Normal bowel sounds, Soft and benign, Non-distended, No tenderness, No masses, No rebound, No guarding, Ascites Musculoskeletal: No erythema, No tenderness, No warmth Integumentary: No erythema, No warmth, No cyanosis Neurological: Normal speech, Normal strength at 5/5 x4 extr, Normal tone, Normal affect Laboratory Data at Discharge: WBC 4.6 K/uL (4.3-10.9) D 02/11/19 05:51 Hgb 8.7 g/dL (12.0-15.0) L 02/11/19 05:51 Hct 26.1 % (36.0-45.0) L 02/11/19 05:51 Plt Count 146 K/uL (152-406) L 02/11/19 05:51 PT 12.6 SECONDS (9.5-12.5) H 02/10/19 11:30 INR 1.07 02/10/19 11:30 Sodium 137 mmol/L (136-145) 02/11/19 05:51 Potassium 3.6 mmol/L (3.5-5.1) 02/11/19 05:51 BUN 19 mg/dL (7-18) H 02/11/19 05:51 Creatinine 1.25 mg/dL (0.55-1.3) 02/11/19 05:51 Glucose 103 mg/dL (74-106) 02/11/19 05:51 Magnesium 2.3 mg/dL (1.8-2.4) 02/11/19 05:51 Total Bilirubin 2.2 mg/dL (0.2-1.0) H 02/11/19 05:51 AST 47 U/L (15-37) H 02/11/19 05:51 ALT 43 U/L (12-78) 02/11/19 05:51 Alkaline Phosphatase 149 U/L (45-117) H 02/11/19 05:51 Lipase 261 U/L (73-393) 02/10/19 11:30 Home Medications: Ondansetron HCl [Zofran] 4 mg PO Q8H PRN 04/06/18 Melatonin/Pyridoxine [Melatonin 5 mg Tablet] 10 mg PO BEDTIME 09/10/18 Pyridoxine [Vitamin B-6*] 50 mg PO BID 09/10/18 Ferrous Sulfate [Iron] 325 mg PO BID #60 tablet 09/27/18 Folic Acid 1 mg PO DAILY #30 tablet 09/27/18 Pantoprazole [Protonix Tab*] 40 mg PO BIDAC #60 tab 09/27/18 Rifaximin [Xifaxan] 550 mg PO BID #60 tablet 09/27/18 Thiamine HCl [Vitamin B-1*] 100 mg PO DAILY #30 tablet 09/27/18 Lactulose [Cephulac*] 30 ml PO TID 02/10/19 Midodrine HCl [Proamatine*] 5 mg PO BID 02/10/19 Potassium 1 tab PO DAILY 02/10/19 Spironolactone [Aldactone*] 50 mg PO BID 02/10/19 Patient Discharge Instructions: 1. Recommend follow up with her PCP in 1 week. 2. Patient presented with shortness of breath secondary to severe ascites. Patient with history of multiple recurrent paracentesis due to chronic alcoholic cirrhosis. Patient was to have an outpatient paracentesis but the patient could not wait. She came to the ER for further evaluation and treatment. Patient with severe ascites. Radiology assisted paracentesis was done. 12 L removed. Albumin given. Patient also had some anemia. This was below her baseline. The patient was admitted for observation. During the course of her stay patient received 2 units of packed red blood cells. Hemoglobin improved. Patient currently stable this time. No significant shortness of breath noted. At discharge patient will continue her Xifaxan 550 mg 1 pill twice daily and lactulose 30 mg 3 times a day. Recommend to follow up with her food service specialist. Patient will continue with her scheduled outpatient paracentesis in the near future. Patient in process of seen hepatology for further treatment. 3. Patient with acute on chronic anemia. As mentioned above patient received 2 units of packed red blood cells. Hemoglobin now stable. At discharge she will continue with iron 325 mg 1 pill twice daily, folic acid 1 pill daily, and thiamine 100 mg daily. Recommend to recheck CBC in 1-2 weeks to monitor progress. Patient had no melena, rectal bleeding or hematemesis. Patient with prior history of GI bleed with esophageal varices. At discharge she will also continue with Protonix 40 mg 1 pill twice daily. 4. Patient with history of chronic orthostatic hypotension. Patient takes midodrine to maintain blood pressure. At discharge, she will continue with midodrine 5 mg 1 pill twice daily. 5. Patient with alcohol abuse. Patient has being decreasing her alcohol intake. Recommend to continue with alcohol cessation. Patient plans to eventually quit. This was highly encouraged. Diet: GI soft diet Activity: Fall precautions Time spent managing pt's care (in minutes): 55
[2019-02-11 09:31] VITALS: O2SAT 100
[2019-02-11] MEDS ORDERED: POTASSIUM CL SA 10 MEQ TAB PO ONE (09:32)
[2019-02-11 12:55] VITALS: BP 99/58; TEMP 97.3
[2019-02-11] MEDS ORDERED: MIDODRINE HCL 5 MG TABLET PO SCH (21:00)
== END 2019-02-11 13:41 | disposition home or self-care (01) ==
LOC: ER 10:41 → ERHOLD 15:22 → 4TH 16:34
PROVIDERS: ADMIT Family Medicine; ATTEND Family Medicine
DX: K70.31 Alcoholic cirrhosis of liver with ascites (principal); R06.02 Shortness of breath; D50.0 Iron deficiency anemia secondary to blood loss (chronic); I95.1 Orthostatic hypotension; F10.10 Alcohol abuse, uncomplicated; Z79.899 Other long term (current) drug therapy; Z87.19 Personal history of other diseases of the digestive system
CPT/HCPCS: 36415; 36430; 49083; 71045; 80048; 80053; 80076; 83690; 83735; 83880; 84484; 85014; 85018; 85025; 85027; 85610; 86850; 86900; 86901; 93005; 99285; C9113; J1940; J2405; J7030; P9016; P9047

== ENCOUNTER 2023-03-18 20:11 | Emergency (ER) | payer OTHER ==
--- OUTSIDE RECORDS SUMMARY | 2023-03-18 20:22 | XMS REPORT | Continuity of Care Document ---
:1970 Author Organization [facility] t Address [address] [place] [address] Care Team Providers Name Role Phone NOLOCAL, PRIMARY CARE DOC Primary Care Physician Unavailable GC_CCW_Ramineni_R Attending Clinician Unavailable JANETTE HERNANDEZ MD Attending Clinician HUGO BOOKER Attending Clinician CHANTE ZAMBRANO Attending Clinician Unavail able CLEVE ALCOCER Attending Clinician Unavailable NICK MCKENZIE Attending Clinician Unavailable RAMON ARIAS Attending Clinician Unavailable GC_CCW_Ramineni_R Admitting Clinician Unavailable CHANTE ZAMBRANO Admitting Clinician Unavail able NEAL WHEELER Admitting Clinician Unavailable NICK MCKENZIE Admitting Clinician Unavailable Payers Payer Name Policy Type Policy Effective Date Expiration Date Sour ce Number MEDICAID NA [place] [id number] MEDICAID NA [facility] JAGDEEP CARE NA [facility] Problems Condition Condition Condition Status Onset Resolution Last Treating Co mments Source Name Details Category Date Date Treatment Clinician Date Generalize Generalize Disease Active 2017-08 M ethodi d d abdominal abdominal 00:00: [facility]osp [facility] pain pain 00 l Ascites Ascites Disease Active 2017-08 Method[facility] due to due to st alcoholic alcoholic 00:00: Hosp [facility]aye cirrhosis cirrhosis 00 l Abdominal Abdominal Problem Active [facility] pain pain lle [facility] Alcoholic Alcoholic Problem Active [facility] cirrhosis cirrhosis lle of liver of liver [facility] a with with l ascites ascites Hospita [facility] Poorly Poorly Problem Active [place] controlled controlled ll e ascites ascites [facility] Hepatic Problem Active [place] encephalop lle athy [facility] Rhabdomyol Problem Active [facility] [facility] ysis [facility] Altered Problem Active [place] mental lle status [facility] Open wound Problem Active [facility] anterior [facility] abdominal l wall [facility]ospita l Hepatic Problem Active [place] cirrhosis lle [facility] Urinary Problem Active [place] tract [facility]le infection [facility] Confusion Problem Active [place] [facility] Allergies, Adverse Reactions, Alerts Allergy Allergy Status Severity Reaction(s) Onset Inactive Treating Comm ents Source Name Type Date Date Clinician No Known DA Active [facility]ie 04-27 [place] [facility] Social History Social Habit Start Date Stop Date Quantity Comments Source Gender identity [facility] Sexual orientation [facility] History of tobacco Occasional [facility] use tobacco smoker Hospital History of Social 2019-03-26 2019-03-[address] function 00:00:00 00:00:00 Hospital Alcohol intake 2018-08-06 2018-08-06 Current drinker [facility] 00:00:00 00:00:00 of alcohol Hospital (finding) Alcohol Comment 2018-08-04 2018-08-04 quit 2 months Method ist 00:00:00 00:00:00 Hospital Cigarettes smoked 2018-08-04 2018-08-[address] current (pack per 00:00:00 00:00:00 Hospita l day) - Reported Cigarette 2018-08-04 2018-08-04 [facility] 00:[facility]00:00 Hospital Tobacco use and 2018-08-04 2018-08-04 Smokeless tobacco Id thodist exposure 00:00:00 00:00:00 non-user Hospital Sex Assigned At [birth year] [facility] 00[facility] Smoking Status Start Date Stop Date Source Occasional tobacco [facility] 2018[facility] Ordered Filled Start Stop Current Ordering Indication Dosage Frequency Signature Comments Components Source Medication Medication Date Date Medication? Clinician (SIG) Name Name Lactulose Lactulose 2019-0 Yes 20 THREE TIME [place] (LACTULOSE (LACTULOSE 5-13 A lle 10 GM/15 ML 10 GM/15 ML 13:48: DAY(;15; Memoria ORAL SOLN) ORAL SOLN) 00 21) l 10 GM/15 ML 10 GM/15 ML H ospita JUSTINO JUSTINO l Rifaximin Rifaximin 0 Yes 550 EVERY [facility] [place] (Xifaxan) (Xifaxan) 5-13 TWELVE lle 550 MG TAB 550 MG TAB 13:48: HOURS [facility] 00 l Hospita l ondansetron 2018-0 Yes 4mg Q8H Take 4 mg M ethodi ODT 1-[address] (ZOFRAN-ODT 17:26: every 8 Hos jorge alberto ) 4 MG 49 (eight) l disintegrat hours as ing tablet needed for nausea or vomiting. ferrous 2019-0 Yes 325mg QD Take 325 Metho di sulfate 325 1-[address] (65 FE) MG 17:26: mouth Hospit a tablet 49 daily with l breakfast. folic acid 2019-0 Yes 1mg QD Take 1 mg Me thodi (FOLVITE) 1 1-[address] MG tablet 17:26: daily. Hospit a 49 l lactulose 2019-0 Yes 20g Q.[id number] Take 20 g [facility] (CEPHULAC) 1-04 [id number] mouth [address] 20 gram 17:26: 3D (three) Hospita packet 49 times a l day. midodrine 2019-0 Yes 5mg Q.25027772 Take 5 mg [facility] (PROAMATINE -04 [id number] by mouth 3 st ) 5 MG 17:26: 3D (three) Hospita tablet 49 times a l day. nadolol 2019-0 Yes 20mg QD Take 20 mg Meth dipti (CORGARD) 1-[address] 20 MG 17:26: daily. Hospita tablet 49 l omeprazole 2019-0 Yes 40mg QD Take 40 mg M ethodi (PriLOSEC) 1-[address] 40 MG 17:26: daily. Hospita capsule 49 l potassium 2019-0 Yes 20meq Q.5D Take 20 Meth dipti chloride 1-[address] (KLOR-CON) 17:26: mouth 2 Hosp faye 20 mEq 49 (two) l packet times a day. HYDROXYZINE HYDROXYZINE Yes 25 THREE TIME [place] HCL (ATARAX HCL (ATARAX A l le 25 MG TAB) 25 MG TAB) DAY(; Memoria 25 MG TAB 25 MG TAB 21) l Hospita l Midodrine Midodrine Yes 5 THREE TIME [place] HCl HCl A lle (PROAMATINE (PROAMATINE DAY(; Memoria 5 MG TAB) 5 5 MG TAB) 5 21) l MG TAB MG TAB Hospita l Promethazin Promethazin Yes 25 EVERY SIX [place] e HCl e HCl HOURS lle (PROMETHAZI (PROMETHAZI NEEDED as Memoria NE 25 MG NE 25 MG needed l TABLET) 25 TABLET) 25 Hos jorge alberto MG TAB MG TAB l Vital Signs Vital Name Observation Time Observation Value Comments Source Heart Rate 2020-01-02 09:00:00 80 /min [facility] BP Systolic 2020-01-02 07:51:00 110 mm[Hg] [facility] BP Diastolic 2020-01-02 07:51:00 62 mm[Hg] Jordan mendoza [facility] Body Temperature 2020-01-02 07:51:00 96.9 [degF] Geo [facility] Respiratory rate 2020-01-02 07:51:00 16 /min Geo [facility] Oxygen saturation by 2020-01-02 07:51:00 96 /min [place] Pulse oximetry [facility] Height 2020-01-02 06:00:00 66 [in_i] [facility] Weight 2020-01-02 06:00:[address] [facility] BMI (Body Mass 2020-01-02 06:00:00 20.9 kg/m2 [place] Index) [facility] BP Systolic 2019-12-16 13:56:00 109 mm[Hg] Jordan [facility] BP Diastolic 2019-12-16 13:56:00 66 mm[Hg] Jordan mendoza [facility] al Body Temperature 2019-12-16 13:56:00 98.5 [degF] Geo [facility] Respiratory rate 2019-12-16 13:56:00 18 /min [place] Heart Rate 2019-12-16 13:56:00 111 /min [facility] Oxygen saturation by 2019-12-16 13:56:00 95 /min [place] Pulse oximetry [facility] ital Height 2019-12-16 06:00:00 68 [in_i] Jordan [facility] Weight 2019-12-16 06:00:[address] [facility] BMI (Body Mass 2019-12-16 06:00:00 17.1 kg/m2 [facility] Respiratory rate 2019-04-16 13:37:00 18 /min [facility] Procedures Procedure Date / Time Performing Clinician Source Performed BASIC METABOLIC PANEL 2020-01-02 00:00:00 [facility] CBCA W/PLT & AUTO 2020-01-02 00:00:00 [facility] AMMONIA 2020-01-02 00:00:00 [facility] ALCOHOL 2020-01-01 00:00:00 [facility] AMMONIA 2020-01-01 00:00:00 [facility] CK 2020-01-01 00:00:00 [facility] CKMB 2020-01-01 00:00:00 [facility] MYOGLOBIN,BLOOD 2020-01-01 00:00:00 [facility] TROPONIN I 2020-01-01 00:00:00 [facility] PROCALCITONIN 2019-12-31 00:00:00 [facility] LACTIC ACID 2019-12-31 00:00:00 [facility] URINE CULTURE 2019-12-31 00:00:00 [facility] AMMONIA 2019-12-31 00:00:00 [facility] ALCOHOL 2019-12-31 00:00:00 [facility] URINE DRUG 2019-12-31 00:00:00 [facility] CK 2019-12-31 00:00:00 [facility] CKMB 2019-12-31 00:00:00 [facility] MYOGLOBIN,BLOOD 2019-12-31 00:00:00 [facility] TROPONIN I 2019-12-31 00:00:[address] [facility] [address] BRAIN W/O CONTRAST 2019-12-31 00:00:00 [facility] CHEST 1 VIEW (AP) 2019-12-31 00:00:00 [facility] CBCA W/PLT & AUTO 2019-12-31 00:00:00 [facility] COMPREHENSIVE METABOLIC 2019-12-31 00:00:00 [facility] UA COMPLETE W/CULTURE 2019-12-31 00:00:00 [facility] PROTIME 2019-12-31 00:00:00 [facility] PTT 2019-12-31 00:00:00 [facility] CARDIAC MARKERS PANEL 2019-12-31 00:00:00 [facility] AMYLASE 2019-12-31 00:00:00 [facility] LIPASE 2019-12-31 00:00:00 [facility] BLOOD CULTURE 2019-12-31 00:00:00 [facility] AMMONIA 2019-12-16 00:00:00 [facility] BASIC METABOLIC PANEL 2019-12-15 00:00:00 [facility] AMMONIA 2019-12-15 00:00:00 [facility] AMMONIA 2019-12-14 00:00:00 [facility] BASIC METABOLIC PANEL 2019-12-14 00:00:00 [facility] MAGNESIUM 2019-12-14 00:00:00 [facility] CBCA W/PLT & AUTO 2019-12-13 00:00:00 [facility] COMPREHENSIVE METABOLIC 2019-12-13 00:00:00 [facility] AMMONIA 2019-12-13 00:00:00 [facility] CBCA W/PLT & AUTO 2019-12-12 00:00:00 [facility] COMPREHENSIVE METABOLIC 2019-12-12 00:00:00 [facility] UA COMPLETE W/CULTURE 2019-12-12 00:00:00 [facility] PROTIME 2019-12-12 00:00:00 [facility] PTT 2019-12-12 00:00:00 [facility] BNP RAPID 2019-12-12 00:00:00 [facility] AMYLASE 2019-12-12 00:00:00 [facility] LIPASE 2019-12-12 00:00:00 [facility] AMMONIA 2019-12-12 00:00:00 [facility] LACTIC ACID 2019-12-12 00:00:00 [facility] URINE DRUG 2019-12-12 00:00:00 [facility] BLOOD CULTURE 2019-12-12 00:00:00 [facility] CARDIAC MARKERS PANEL 2019-12-12 00:00:00 [facility] () [facility] WOUND CULTURE 2019-12-12 00:00:00 [facility] ALCOHOL 2019-12-12 00:00:00 [facility] CHEST 1 VIEW (AP) 2019-12-12 00:00:00 [facility] CT ABD & PELVIS W 2019-12-12 00:00:00 [facility] CT BRAIN W/O CONTRAST 2019-12-12 00:00:00 [facility] CBCA W/PLT & AUTO 2019-04-27 00:00:00 [facility] COMPREHENSIVE METABOLIC 2019-04-27 00:00:00 [facility] AMYLASE 2019-04-27 00:00:00 [facility] LIPASE 2019-04-27 00:00:00 [facility] TYPE AND SCREEN 2019-04-27 00:00:00 [facility] PACKED CELLS (RBC) 2019-04-27 00:00:00 [facility] LACTIC ACID 2019-04-27 00:00:00 [facility] STOOL OCCULT BLOOD 2019-04-27 00:00:00 [facility] GASTRICULT 2019-04-27 00:00:00 [facility] PROTIME 2019-04-27 00:00:00 [facility] PTT 2019-04-27 00:00:00 [facility] FRESH FROZEN PLASMA 2019-04-27 00:00:00 [facility] ALCOHOL 2019-04-27 00:00:00 [facility] BASIC METABOLIC PANEL 2019-04-16 00:00:00 [facility] CBCA W/PLT & AUTO 2019-04-16 00:00:00 [facility] ERYTHROCYTE 2019-04-16 00:00:00 [facility] AFT, SERUM,TUMOR MARKER* 2019-04-16 00:00:00 [facility] BASIC METABOLIC PANEL 2019-04-14 00:00:00 [facility] VANCOMYCIN TROUGH 2019-04-14 00:00:00 [facility] URINE CULTURE 2019-04-13 00:00:00 [facility] US ECHO GUIDANCE 2019-04-13 00:00:00 [facility] PARACENTESIS [facility] DRAINAGE OF PERITONEAL 2019-04-13 00:00:00 [facility] CAVITY, PERCUTANEOUS Hospital APPROACH, DIAGN VANCOMYCIN TROUGH 2019-04-12 00:00:00 [facility] CBCA W/PLT & AUTO 2019-04-12 00:00:00 [facility] COMPREHENSIVE METABOLIC 2019-04-12 00:00:00 [facility] BLOOD CULTURE 2019-04-12 00:00:00 [facility] BASIC METABOLIC PANEL 2019-04-11 00:00:00 [facility] CBCA W/PLT & AUTO 2019-04-11 00:00:00 [facility] VANCOMYCIN TROUGH 2019-04-10 00:00:00 [facility] CBCA W/PLT & AUTO 2019-04-10 00:00:00 [facility] BASIC METABOLIC PANEL 2019-04-10 00:00:00 [facility] BLOOD CULTURE 2019-04-10 00:00:00 [facility] CBCA W/PLT & AUTO 2019-04-09 00:00:00 [facility] COMPREHENSIVE METABOLIC 2019-04-09 00:00:00 [facility] PACKED CELLS (RBC) 2019-04-09 00:00:00 [facility] STOOL OCCULT BLOOD 2019-04-09 00:00:00 [facility] TYPE AND SCREEN 2019-04-09 00:00:00 [facility] HEMOGLOBIN 2019-04-09 00:00:00 [facility] HEMATOCRIT 2019-04-09 00:00:00 [facility] TRANSFUSE NONAUT RED 2019-04-09 00:00:[address] [facility] [place] [place] BLOOD CELLS IN [facility] VEIN, PERC URINE CULTURE 2019-04-08 00:00:00 [facility] PROTIME 2019-04-08 00:00:00 [facility] PTT 2019-04-08 00:00:00 [facility] A1C 2019-04-08 00:00:00 [facility] LIPID PANEL 2019-04-08 00:00:00 [facility] THYROID STIMULATING 2019-04-08 00:00:00 [facility] BODY FLUID CULTURE 2019-04-08 00:00:00 [facility] BODY FLUID CELL COUNT 2019-04-08 00:00:00 [facility] US ECHO GUIDANCE 2019-04-08 00:00:00 [facility] PARACENTESIS [facility] DRAINAGE OF PERITONEAL 2019-04-08 00:00:00 [facility] CAVITY, PERCUTANEOUS Hospital APPROACH CBCA W/PLT & AUTO 2019-04-07 00:00:00 [facility] COMPREHENSIVE METABOLIC 2019-04-07 00:00:00 [facility] LACTIC ACID 2019-04-07 00:00:00 [facility] UA COMPLETE W/CULTURE 2019-04-07 00:00:00 [facility] BLOOD CULTURE 2019-04-07 00:00:00 [facility] HIV ANTIGEN/ANTIBODY 2019-04-07 00:00:00 [facility] CHEST 2 VIEWS 2019-04-07 00:00:[address] [facility] [address] ABD & PELVIS W 2019-04-07 00:00:00 [facility] Plan of Care Planned Activity Planned Date Details Comments Source Future Scheduled 2023-03-09 Screening for [facility] Test 14:37:42 malignant neoplasm of colon (procedure) [code = 560447438] Future Scheduled 2023-03-09 Screening for [facility] Test 14:37:42 malignant neoplasm of colon (procedure) [code = 599767895] Future Scheduled 2023-03-09 Screening for [facility] Test 14:37:42 malignant neoplasm of colon (procedure) [code = 648385917] Future Scheduled 2023-03-09 [facility] 14:37:42 (#1) [code = COVID-19 VACCINE (#1)] Future Scheduled 2023-03-09 Screening for [facility] Test 14:37:42 malignant neoplasm of cervix (procedure) [code = 876620270] Future Scheduled 2023-03-09 BREAST CANCER [facility] Test 14:37:42 SCREENING [code = BREAST CANCER SCREENING] Future Scheduled 2023-03-09 Screening for [facility] Test 14:37:42 malignant neoplasm of colon (procedure) [code = 296149146] Future Scheduled 2023-03-09 Screening for [facility] Test 14:37:42 malignant neoplasm of colon (procedure) [code = 137506845] Future Scheduled 2023-03-09 SHINGLES VACCINES [facility] Test 14:37:42 (1 of 2) [code = SHINGLES VACCINES (1 of 2)] Future Scheduled 2023-03-09 INFLUENZA VACCINE [facility] Test 14:37:42 [code = INFLUENZA VACCINE] Encounters Start End Encounter Admission Attending Care Care Encounter Source Date/Time Date/Time Type Type Clinicians Facility Department ID 2022-11-11 2022-11-11 Outpatient GC_CCW_Rami PRIV PRIV [id number] [facility] 00:00:00 00:00:00 luisito_Estefania [id number] Medica l 2019-12-31 2020-01-02 Discharged [place] [id number] [place] 14:14:00 13:39:00 Inpatient [facility] 92 [facility] Hospita l 2019-12-12 2019-12-16 Discharged [facility] [id number] [place] 16:25:00 14:51:00 Inpatient [facility] 66 [facility] Hospita l 2019-08-04 2019-08-04 Departed [facility] [id number] [place] 11:53:00 13:55:00 Emergency [facility] 44 [facility] Hospita l 2019-04-27 2019-04-27 Departed HERNANDEZ [facility] [id number] [place] 15:16:00 18:31:00 Emergency JANETTE 01 [facility] 2019-04-07 2019-04-16 Discharged TAMMY BOOKERED [facility] [id number] [place] 17:12:00 14:25:00 [facility] Results Test Description Test Time Test Comments Results Result Comments Source White Blood Count 2020-01-02 03:50:00 Test Item Value Reference Range Interpretation Comme nts White Blood Count (test code = 6690-2) 3.1 4.1-12.9 [facility] [id number] 03:50:00 Test Item Value Reference Range Interpretation Comments Red Blood Count (test code = 789-8) 2.63 3.64-5.20 [facility]emoglobin2020-05-30 03:50:00 Test Item Value Reference Range Interpretation Comments Hemoglobin (test code = 718-7) 8.1 10.6-15.6 [facility] Falls[facility]ematocrit2020-05-30 03:50:00 Test Item Value Reference Range Interpretation Comments Hematocrit (test code = 18665-7) 25.3 32.0-45.9 [facility] Corpuscular [id number] 03:50:00 Test Item Value Reference Range Interpretation Comments Mean Corpuscular Volume (test code = 96.3 74.6-98.2 49178-5) [facility] Corpuscular [id number] 03:50:00 Test Item Value Reference Range Interpretation Comments Mean Corpuscular Hemoglobin (test code 30.9 24.3-33.8 = 51258-9) [facility] Corpuscular Hgb Concent [id number] 03:50:00 Test Item Value Reference Range Interpretation Comments Mean Corpuscular Hgb Concent Diff (test 32.0 32.0-36.0 code = 32523-0) [facility] Cell Distribution [id number] 03:50:00 Test Item Value Reference Range Interpretation Comments Red Cell Distribution Width (test code 18.1 11.4-16.3 = 77015-6) 1+ [facility]ISOCYTOSIS[facility] FallsPlatelet [id number] 03:50:00 Test Item Value Reference Range Interpretation Comments Platelet Count (test code = 777-3) 129 168-441 [facility] Platelet [id number] 03:50:00 Test Item Value Reference Range Interpretation Comments Mean Platelet Volume (test code = 9.1 6.8-10.2 77774-0) [facility] FallsGranulocytes (%)2020-01-02 03:50:00 Test Item Value Reference Range Interpretation Comments Granulocytes (%) (test code = 96222-6) 69.1 39.8-78.1 [facility] FallsLymphocytes %2020-01-02 03:50:00 Test Item Value Reference Range Interpretation Comments Lymphocytes % (test code = 736-9) 10.6 14.1-47.6 [facility] FallsMonocytes %2020-01-02 03:50:00 Test Item Value Reference Range Interpretation Comments Monocytes % (test code = 5905-5) 11.6 3.8-11.6 [facility] FallsEosinophils %2020-01-02 03:50:00 Test Item Value Reference Range Interpretation Comments Eosinophils % (test code = 713-8) 6.5 0.6-7.3 [facility]ophils %2020-01-02 03:50:00 Test Item Value Reference Range Interpretation Comments Basophils % (test code = 45911-1) 2.2 0.0-2.0 [facility] FallsGranulocytes #2020-01-02 03:50:00 Test Item Value Reference Range Interpretation Comments Granulocytes # (test code = 16275-9) 2.2 1.6-10.1 [facility] FallsLymphocytes #2020-01-02 03:50:00 Test Item Value Reference Range Interpretation Comments Lymphocytes # (test code = 85277-8) 0.3 0.6-6.1 [facility] FallsMonocytes #2020-01-02 03:50:00 Test Item Value Reference Range Interpretation Comments Monocytes # (test code = 742-7) 0.4 0.2-1.5 [facility] FallsEosinophils #2020-01-02 03:50:00 Test Item Value Reference Range Interpretation Comments Eosinophils # (test code = 711-2) 0.2 0.0-0.9 [facility] Falls[facility]ophils #2020-01-02 03:50:00 Test Item Value Reference Range Interpretation Comments Basophils # (test code = 70884-7) 0.1 0.0-0.2 [facility] FallsManual [id number] 03:50:00 Test Item Value Reference Range Interpretation Comments Manual Differential (test code = Manual NO Differential) [facility] [id number] 03:50:00 Test Item Value Reference Range Interpretation Comments Sodium Level (test code = 2951-2) 141 135-144 [facility] FallsPotassium [id number] 03:50:00 Test Item Value Reference Range Interpretation Comments Potassium Level (test code = 2823-3) 2.5 3.5-5.1 Critical Result S_K:2.5 Called to and read back by: ISRAEL ROJAS at: 01/02/2020 06:19:53 by:SUSI SzymanskiTyler County HospitalChloride Level 2020-01-02 03:50:00 Test Item Value Reference Range Interpretation Comments Chloride Level (test code = 2075-0) 125 101-111 [facility] FallsCarbon Dioxide [id number] 03:50:00 Test Item Value Reference Range Interpretation Comments Carbon Dioxide Level (test code = 2027-9) [facility] FallsAnion [id number] 03:50:00 Test Item Value Reference Range Interpretation Comments Anion Gap (test code = 45063-1) 6.5 10-20 [facility] FallsGlucose [id number] 03:50:00 Test Item Value Reference Range Interpretation Comments Glucose Level (test code = 2345-7) 90 65-99 Prediabetes 100 to 125 mg/dlDiabetes 126mg/dl or higher Prediabetes refers to individuals with plasma glucose levelsintermediate between those considered normal and thoseconsidered diabetic and is also referred to as impairedglucose tolerance (IGT) or impaired fasting glucose (IFG). [facility] FallsBlood Urea Cunsclws5532-04-30 03:50:00 Test Item Value Reference Range Interpretation Comments Blood Urea Nitrogen (test code = 9 03-30 3094-0) [facility] FallsCreatinine2020-05-30 03:50:00 Test Item Value Reference Range Interpretation Comments Creatinine (test code = 2160-0) 0.5 0.44-1.00 [facility] FallsEGFR [id number] 03:50:00 Test Item Value Reference Range Interpretation Comments EGFR Note (test code = 89470-7) 101.4 63.8-143.2 eGFR (Estimated Glomerular Filtration Rate) eGFR calculation value obtained using the [facility] HospitalQuadratic (Q) equation. The reportable reference range isrecommended to be greater than 60 ml/min/1.73m. This is anestimation of the patient's GFR and clinical correlation isrecommended. This eGFR calculation does not account for race. This resultmay differ from other equations available. [facility] FallsCalcium [id number] 03:50:00 Test Item Value Reference Range Interpretation Comments Calcium Level (test code = 51332-0) 7.2 8.9-10.3 [facility] FallsAmmonia2020-05-30 03:50:00 Test Item Value Reference Range Interpretation Comments Ammonia (test code = 16103-0) 90 11-35 [facility] FallsCreatine Ktzbux9171-36-71 02:59:00 Test Item Value Reference Range Interpretation Comments Creatine Kinase (test code = 2157-6) 309 38-234 [facility] FallsCreatine Kinase [id number] 02:59:00 Test Item Value Reference Range Interpretation Comments Creatine Kinase MB (test code = 5.90 0.6-6.3 59151-9) [facility] FallsTroponin [id number] 02:59:00 Test Item Value Reference Range Interpretation Comments Troponin I (test code = 25227-1) 0.02 0.00-0.03 Troponin I-Interpretation Reference : <0.03 ng/mL NEGATIVE 0.04 - 0.49 ng/mL EQUIVOCAL = OR >0.5 ng/mL CONSISTENT WITH ACUTE MYOCARDIAL INJURY 98% of confirmed AMI patients will have at least one valuein a set or serial specimens >0.50 ng/ml. 99% of normals are between 0.0 - 0.10 ng/ml. Serial samples on a patient that are all <0.10 ng/mleffectively rules out AMI. Persistently increasedtroponin I values that are above theupper limit of normal but below the threshold for AMIindicate mycardial injury but not necessarily an ischemicmechanism of injury. Troponin Important Points 1. Troponin is specific for myocardial injury but not forAMI. Elevated troponin levels above the upper limit ofnormal but below the AMI cutoff may be present in cardiacinjury other then AMI and represent some degree of risk. 2. Elevated troponin levels inconsistent with patienthistory or clinical condition should be considered a sign toinvestigate for other cardiac conditions. 3. Serial sampling is critical for accurate diagnosis.[facility] FallsMyoglobin 2020-01-01 02:59:00 Test Item Value Reference Range Interpretation Comments Myoglobin (test code = 2639-3) 91 14.3-65.8 [facility] FallsAlcohols2020-05-29 02:59:00 Test Item Value Reference Range Interpretation Comments Alcohols (test code = 5643-2) < 5 0-5 [facility] FallsLactic Acid Vzayf9879-20-01 22:19:00 Test Item Value Reference Range Interpretation Comments Lactic Acid Level (test code = 2524-7) 1.9 0.5-2.0 [facility] FallsUrine Lpocpmy8975-24-11 15:16:00 Test Item Value Reference Range Interpretation Comments Urine Culture (test code = ESCHERICHIA COLI 630-4) [facility] FallsProthrombin Jmhu6979-37-70 14:50:00 Test Item Value Reference Range Interpretation Comments Prothrombin Time (test code = 5964-2) 15.1 10.0-12.9 [facility] FallsINR International Normalized Lqrun0262-21-74 14:50:00 Test Item Value Reference Range Interpretation Comments INR International Normalized Ratio 1.4 0.91-1.15 (test code = 6301-6) THE INR IS TO BE USED ONLY FOR MONITORING ORAL ANTICOAGULANTTHERAPY. INDICATION INR VALUE 1. Prophylaxis of venous thrombosis 2.0-3.0 (high-risk surgery) Treatment of venous thrombosis Treatment of PEPrevention of systemic embolism Tissue heart valves AMI (to prevent systemic embolism) Valvular heart disease Atrial fibrillation Bileaflet mechanical valve in aortic position 2. Mechanical prosthetic heart valves (high risk) 2.5-3.5 Thrombosis and Antiphospholipid syndrome Prevention of recurrent GA Sixth ACCP Consensus Conference on Antithrombotic Therapy,Chest 2001; 119:Supplement 8-21.[facility] FallsActivated Partial Thromboplast Bpgp4661-11-90 14:50:00 Test Item Value Reference Range Interpretation Comments Activated Partial Thromboplast Time 37.8 25.1-36.5 (test code = 3173-2) [facility] FallsAlbumin2020-05-28 14:50:00 Test Item Value Reference Range Interpretation Comments Albumin (test code = 1751-7) 2.4 3.5-5.0 [facility] FallsTotal Axoxvekyt4458-28-75 14:50:00 Test Item Value Reference Range Interpretation Comments Total Bilirubin (test code = 1975-2) 1.6 0.2-1.2 [facility] FallsAlkaline Pybsgplfmdn6598-65-65 14:50:00 Test Item Value Reference Range Interpretation Comments Alkaline Phosphatase (test code = 118 32-91 6768-6) [facility] FallsTotal Kosfioy2265-85-80 14:50:00 Test Item Value Reference Range Interpretation Comments Total Protein (test code = 2885-2) 6.8 6.5-8.1 [facility] FallsAlanine Aminotransferase (ALT/SGPT)2019-12-31 14:50:00 Test Item Value Reference Range Interpretation Comments Alanine Aminotransferase (ALT/SGPT) 31 7-55 (test code = 1742-6) [facility] FallsAspartate Amino Transf (AST/SGOT)2019-12-31 14:50:00 Test Item Value Reference Range Interpretation Comments Aspartate Amino Transf (AST/SGOT) (test 78 15 code = 1920-8) [facility] FallsGlobulin2020-05-28 14:50:00 Test Item Value Reference Range Interpretation Comments Globulin (test code = 32006-3) 4.4 2.3-3.5 [facility] FallsAlbumin/Globulin Mingy0512-58-72 14:50:00 Test Item Value Reference Range Interpretation Comments Albumin/Globulin Ratio (test code = 0.5 1.2-2.2 1759-0) [facility] FallsAmylase Yabmz5140-14-95 14:50:00 Test Item Value Reference Range Interpretation Comments Amylase Level (test code = 1798-8) 81 36-128 [facility] FallsLipase2020-05-28 14:50:00 Test Item Value Reference Range Interpretation Comments Lipase (test code = 3040-3) 18 22-51 [facility] FallsJsbepbmvAscksedpyzbsc5139-62-69 14:50:00 Test Item Value Reference Range Interpretation Comments Procalcitonin (test code = 98554-3) 0.10 0-0.49 PROCALCITONIN <0.50 ng/mL Systemic infection is not likely. Local bacterial infection is possible. PROCALCITONIN >0.50-2.00 ng/mL Systemic infection is possible. PROCALCITONIN >2.00 ng/mL Systemic infection is likely, unless other causes are known PROCALCITONIN >10.00 ng/mL Critical systemic inflammatory response, most likely due to bacterial sepsis.[facility] FallsUrine Cannabinoids Yghfqq2166-82-55 14:40:00 Test Item Value Reference Range Interpretation Comments Urine Cannabinoids Screen (test code NEGATIVE NEGATIVE = 75363-7) [facility] FallsPhencyclidine (PCP) Qtzctg8385-58-17 14:40:00 Test Item Value Reference Range Interpretation Comments Phencyclidine (PCP) Screen (test NEGATIVE NEGATIVE code = Phencyclidine (PCP) Screen) [facility] FallsCocaine Spwopl2600-50-32 14:40:00 Test Item Value Reference Range Interpretation Comments Cocaine Screen (test code = 3397-7) NEGATIVE NEGATIVE [facility] Methamphetamines [id number] 14:40:00 Test Item Value Reference Range Interpretation Comments Urine Methamphetamines Screen (test NEGATIVE NEGATIVE code = 66599-2) [facility] FallsOpiates Msoorq9021-95-01 14:40:00 Test Item Value Reference Range Interpretation Comments Opiates Screen (test code = 22192-9) NEGATIVE NEGATIVE [facility] Amphetamines Cvelmz8062-78-29 14:40:00 Test Item Value Reference Range Interpretation Comments Urine Amphetamines Screen (test code NEGATIVE NEGATIVE = 97422-6) [facility] FallsBenzodiazepines Csvlxc9234-04-06 14:40:00 Test Item Value Reference Range Interpretation Comments Benzodiazepines Screen (test code = NEGATIVE NEGATIVE 77227-9) [facility] FallsTricyclic Antidepressants Yomkgc3321-15-24 14:40:00 Test Item Value Reference Range Interpretation Comments Tricyclic Antidepressants Screen NEGATIVE NEGATIVE (test code = 73818-4) [facility] FallsMethadone Ttwfji4499-94-44 14:40:00 Test Item Value Reference Range Interpretation Comments Methadone Screen (test code = NEGATIVE NEGATIVE 96176-9) [facility] Barbiturates Nhagpp2928-36-52 14:40:00 Test Item Value Reference Range Interpretation Comments Urine Barbiturates Screen (test code NEGATIVE NEGATIVE = 63655-0) [facility] FallsOxycodone Ndwroo7773-38-55 14:40:00 Test Item Value Reference Range Interpretation Comments Oxycodone Screen (test code = NEGATIVE NEGATIVE 83159-9) [facility] FallsPropoxyphene Iotkxr8590-65-12 14:40:00 Test Item Value Reference Range Interpretation Comments Propoxyphene Screen (test code = NEGATIVE NEGATIVE 45139-1) [facility] FallsUrine Buprenorphine Yixufm5783-25-40 14:40:00 Test Item Value Reference Range Interpretation Comments Urine Buprenorphine Screen (test NEGATIVE NEGATIVE code = 3414-0) CUT OFF CONCENTRATIONS:AMPHETAMINE 500 ng/mlBARBITURATES 200 ng/mlBENZODIAZEPINES 150 ng/mlBUPRENORPHINE 10 ng/mlCOCAINE 150 ng/mlMETHAMPHETAMINE 500 ng/mlMETHADONE 200 ng/mlOPIATES 100 ng/gsARFHRHIYN317 ng/mlPHENCYCLIDINE 25 ng/mlPROPOXYPHENE 300 ng/mlCANNIBINOIDS 50 ng/mlTRICYCLIC QPBNECKPQRYRDBF857 ng/ml ATTENTION:It is important to remember that the Par[employer] EnergyTOX device, likeother instant drug testing immunoassays are screening testsand they give a preliminary result. A presumptive positiveresult(s) should be explored for possible alternativeexplanations- i.e. known related/unrelated cross reactivecompounds, etc. Alternative, more specific methods likeGC/MS OR LC/MS should be utilized to obtain adefinitiveconfirmed quantitative result. A presumptive positive result for any drug does not indicatethe level of intoxication, administration route orconcentration of that drug in the urine specimen. A negative result may not necessarily indicate drug-freeurine. Negative results can be obtained when drug is presentbut below the cut-off level of the test.[facility] FallsUrine [id number] 14:40:00 Test Item Value Reference Range Interpretation Comments Urine Color (test code = 51989-1) [place] YELLOW Substances that cause abnormal urine color may affect thereadability of test pads on urinalysis reagent strips. Thesesubstances include visible levels of blood or bilirubin anddrugs containing dyes (e.g., Pyridium, Azo Gantrisin, AzoGantanol), nitrofurantion (Macrodantin, Furadantin), orriboflavin.[facility] Lkzxdaw2657-48-62 14:40:00 Test Item Value Reference Range Interpretation Comments Urine Clarity (test code = 80950-4) Cloudy CLEAR [facility] Ddttlon0101-78-66 14:40:00 Test Item Value Reference Range Interpretation Comments Urine Glucose (test code = 5792-7) NEGATIVE NEGATIVE [facility] Ctvcbnqdy1809-31-54 14:40:00 Test Item Value Reference Range Interpretation Comments Urine Bilirubin (test code = 5770-3) NEGATIVE NEGATIVE [facility] Rjslgtc6260-43-49 14:40:00 Test Item Value Reference Range Interpretation Comments Urine Ketones (test code = 5797-6) NEGATIVE NEGATIVE [facility] Specific Ekzogyv3762-54-89 14:40:00 Test Item Value Reference Range Interpretation Comments Urine Specific Cherry Plain (test code = 1.023 1.002-1.030 5811-5) [facility] Gzqyv4804-01-64 14:40:00 Test Item Value Reference Range Interpretation Comments Urine Blood (test code = 95804-7) SMALL NEGATIVE [facility] [id number] 14:40:00 Test Item Value Reference Range Interpretation Comments Urine pH (test code = 5803-2) 6 5.0-8.0 [facility] Zcruwsy9246-82-49 14:40:00 Test Item Value Reference Range Interpretation Comments Urine Protein (test code = 5804-0) 30 NEGATIVE [facility] Tnwdqeojgdwf2294-68-47 14:40:00 Test Item Value Reference Range Interpretation Comments Urine Urobilinogen (test code = 2.0 NEGATIVE 10873-8) [facility] Ectzpwk9807-59-87 14:40:00 Test Item Value Reference Range Interpretation Comments Urine Nitrite (test code = 5802-4) POSITIVE NEGATIVE [facility] Leukocyte Zoehxpwy4884-97-51 14:40:00 Test Item Value Reference Range Interpretation Comments Urine Leukocyte Esterase (test code = 250 NEGATIVE 91314-2) [facility] [id number] 14:40:00 Test Item Value Reference Range Interpretation Comments Urine RBC (test code = 07593-4) 6-14 0-2 [facility] [id number] 14:40:00 Test Item Value Reference Range Interpretation Comments Urine WBC (test code = 60305-4) TNTC 0-5 "Urine Culture test was reflexed and added to this specimen"[facility] Squamous Epithelial Ceile2909-76-69 14:40:00 Test Item Value Reference Range Interpretation Comments Urine Squamous Epithelial Cells (test 0-2 0-5 code = 48648-4) [facility] Rqtuokpr2244-93-41 14:40:00 Test Item Value Reference Range Interpretation Comments Urine Bacteria (test code = 97093-7) 2+ NEGATIVE "Urine Culture test was reflexed and added to this specimen"[facility] WBC Tnzisp6052-68-19 14:40:00 Test Item Value Reference Range Interpretation Comments Urine WBC Clumps (test code = 23916-5) 15-30 NEGATIVE [facility] [id number] 14:40:00 Test Item Value Reference Range Interpretation Comments Urine Mucus (test code = 06792-6) MANY NEGATIVE [facility] FallsAmmonia2020-05-13 05:00:00 Test Item Value Reference Range Interpretation Comments Ammonia (test code = 70391-7) 75 11-35 [facility] Kjgtv8659-69-83 04:11:00 Test Item Value Reference Range Interpretation Comments Sodium Level (test code = 2951-2) 135 135-144 [facility] FallsPotassium Lijbg8996-07-74 04:11:00 Test Item Value Reference Range Interpretation Comments Potassium Level (test code = 2823-3) 4.2 3.5-5.1 [facility] FallsChloride Bqlbo9803-10-98 04:11:00 Test Item Value Reference Range Interpretation Comments Chloride Level (test code = 2075-0) 115 101-111 [facility] FallsCarbon Dioxide Goexr7864-47-94 04:11:00 Test Item Value Reference Range Interpretation Comments Carbon Dioxide Level (test code = 16 22-32 8-9) [facility] FallsAnion Luw3839-50-33 04:11:00 Test Item Value Reference Range Interpretation Comments Anion Gap (test code = 32367-2) 8.2 10-20 [facility] FallsGlucose Ssxuc6076-51-93 04:11:00 Test Item Value Reference Range Interpretation Comments Glucose Level (test code = 2345-7) 95 65-99 Prediabetes 100 to 125 mg/dlDiabetes 126mg/dl or higher Prediabetes refers to individuals with plasma glucose levelsintermediate between those considered normal and thoseconsidered diabetic and is also referred to as impairedglucose tolerance (IGT) or impaired fasting glucose (IFG). [facility] FallsBlood Urea Xfdiyqpr7400-70-49 04:11:00 Test Item Value Reference Range Interpretation Comments Blood Urea Nitrogen (test code = 6 03-30 3094-0) [facility] FallsCreatinine2020-05-12 04:11:00 Test Item Value Reference Range Interpretation Comments Creatinine (test code = 2160-0) 0.6 0.44-1.00 [facility] FallsEGFR [id number] 04:11:00 Test Item Value Reference Range Interpretation Comments EGFR Note (test code = 93402-1) 101.4 63.8-143.2 eGFR (Estimated Glomerular Filtration Rate) eGFR calculation value obtained using the [facility] HospitalQuadratic (Q) equation. The reportable reference range isrecommended to be greater than 60 ml/min/1.73m. This is anestimation of the patient's GFR and clinical correlation isrecommended. This eGFR calculation does not account for race. This resultmay differ from other equations available. [facility] FallsCalcium Hvwyi4905-00-10 04:11:00 Test Item Value Reference Range Interpretation Comments Calcium Level (test code = 00430-3) 7.7 8.9-10.3 [facility]gn[facility] Vhtvk3867-43-02 04:16:00 Test Item Value Reference Range Interpretation Comments Magnesium Level (test code = 21921-9) 2.0 1.8-2.5 [facility] Tjxkh6592-56-00 04:16:00 Test Item Value Reference Range Interpretation Comments Magnesium Level (test code = 58492-5) 2.0 1.8-2.5 [facility] Blood Tysjq2286-13-95 03:08:00 Test Item Value Reference Range Interpretation Comments White Blood Count (test code = 6690-2) 5.4 4.1-12.9 [facility] Blood Prwwd5133-15-88 03:08:00 Test Item Value Reference Range Interpretation Comments Red Blood Count (test code = 789-8) 3.05 3.64-5.20 [facility] FallsHemoglobin2020-05-10 03:08:00 Test Item Value Reference Range Interpretation Comments Hemoglobin (test code = 718-7) 9.6 10.6-15.6 [facility] FallsHematocrit2020-05-10 03:08:00 Test Item Value Reference Range Interpretation Comments Hematocrit (test code = 51860-8) 29.3 32.0-45.9 [facility] Corpuscular Isvkmh6138-24-97 03:08:00 Test Item Value Reference Range Interpretation Comments Mean Corpuscular Volume (test code = 96.1 74.6-98.2 64532-3) [facility] Corpuscular Ejurrkgnuj6490-05-94 03:08:00 Test Item Value Reference Range Interpretation Comments Mean Corpuscular Hemoglobin (test code 31.5 24.3-33.8 = 09293-3) [facility] Corpuscular Hgb Concent Icdb3696-66-27 03:08:00 Test Item Value Reference Range Interpretation Comments Mean Corpuscular Hgb Concent Diff (test 32.8 32.0-36.0 code = 43349-2) [facility] FallsRed Cell Distribution Tdmyr6297-21-56 03:08:00 Test Item Value Reference Range Interpretation Comments Red Cell Distribution Width (test code 16.9 11.4-16.3 = 86917-4) [facility] FallsPlatelet Xgvtu5555-30-59 03:08:00 Test Item Value Reference Range Interpretation Comments Platelet Count (test code = 777-3) 208 168441 [facility] Platelet Jjbtnk4366-19-90 03:08:00 Test Item Value Reference Range Interpretation Comments Mean Platelet Volume (test code = 7.9 6.8-10.2 60819-6) [facility] FallsGranulocytes (%)2019-12-13 03:08:00 Test Item Value Reference Range Interpretation Comments Granulocytes (%) (test code = 81216-8) 75.3 39.8-78.1 [facility] HospitalLymphocytes %2019-12-13 03:08:00 Test Item Value Reference Range Interpretation Comments Lymphocytes % (test code = 736-9) 6.2 14.1-47.6 [facility] HospitalMonocytes %2019-12-13 03:08:00 Test Item Value Reference Range Interpretation Comments Monocytes % (test code = 5905-5) 9.5 3.8-11.6 [facility] HospitalEosinophils %2019-12-13 03:08:00 Test Item Value Reference Range Interpretation Comments Eosinophils % (test code = 713-8) 6.8 0.6-7.3 [facility] FallsBasophils %2019-12-13 03:08:00 Test Item Value Reference Range Interpretation Comments Basophils % (test code = 34132-2) 2.2 0.0-2.0 [facility] FallsGranulocytes #2019-12-13 03:08:00 Test Item Value Reference Range Interpretation Comments Granulocytes # (test code = 95206-1) 4.1 1.6-10.1 [facility] FallsLymphocytes #2019-12-13 03:08:00 Test Item Value Reference Range Interpretation Comments Lymphocytes # (test code = 38622-6) 0.3 0.6-6.1 [facility] FallsMonocytes #2019-12-13 03:08:00 Test Item Value Reference Range Interpretation Comments Monocytes # (test code = 742-7) 0.5 0.2-1.5 [facility] HospitalEosinophils #2019-12-13 03:08:00 Test Item Value Reference Range Interpretation Comments Eosinophils # (test code = 711-2) 0.4 0.0-0.9 [facility] FallsBasophils #2019-12-13 03:08:00 Test Item Value Reference Range Interpretation Comments Basophils # (test code = 94135-3) 0.1 0.0-0.2 [facility] FallsManual Kcxzkvxbzqcc2169-36-20 03:08:00 Test Item Value Reference Range Interpretation Comments Manual Differential (test code = Manual NO Differential) [facility] FallsAlbumin2020-05-10 03:08:00 Test Item Value Reference Range Interpretation Comments Albumin (test code = 1751-7) 2.3 3.5-5.0 [facility] Ljbfjqocr5610-32-48 03:08:00 Test Item Value Reference Range Interpretation Comments Total Bilirubin (test code = 1975-2) 2.0 0.2-1.2 [facility] FallsAlkaline Jfzhsqodyyg6113-59-89 03:08:00 Test Item Value Reference Range Interpretation Comments Alkaline Phosphatase (test code = 131 32-91 6768-6) [facility] Sycgmmd1253-77-39 03:08:00 Test Item Value Reference Range Interpretation Comments Total Protein (test code = 2885-2) 7.0 6.5-8.1 [facility] FallsAlanine Aminotransferase (ALT/SGPT)2019-12-13 03:08:00 Test Item Value Reference Range Interpretation Comments Alanine Aminotransferase (ALT/SGPT) 22 7-55 (test code = 1742-6) [facility] FallsAspartate Amino Transf (AST/SGOT)2019-12-13 03:08:00 Test Item Value Reference Range Interpretation Comments Aspartate Amino Transf (AST/SGOT) (test 65 15-41 code = 1920-8) [facility] FallsGlobulin2020-05-10 03:08:00 Test Item Value Reference Range Interpretation Comments Globulin (test code = 48922-2) 4.7 2.3-3.5 [facility] FallsAlbumin/Globulin Fhtfk1007-29-32 03:08:00 Test Item Value Reference Range Interpretation Comments Albumin/Globulin Ratio (test code = 0.5 1.2-2.2 1759-0) [facility] FallsLactic Acid Vlrex5666-95-35 20:26:00 Test Item Value Reference Range Interpretation Comments Lactic Acid Level (test code = 2524-7) 1.8 0.5-2.0 [facility] FallsAlcohols2020-05-09 19:00:00 Test Item Value Reference Range Interpretation Comments Alcohols (test code = 5643-2) < 5 0-5 [facility] FallsUrine Cannabinoids Dpgajq8950-51-51 17:53:00 Test Item Value Reference Range Interpretation Comments Urine Cannabinoids Screen (test code NEGATIVE NEGATIVE = 31043-3) [facility] FallsPhencyclidine (PCP) Czndsb2446-34-00 17:53:00 Test Item Value Reference Range Interpretation Comments Phencyclidine (PCP) Screen (test NEGATIVE NEGATIVE code = Phencyclidine (PCP) Screen) [facility] FallsCocaine Kowtxu1937-96-31 17:53:00 Test Item Value Reference Range Interpretation Comments Cocaine Screen (test code = 3397-7) NEGATIVE NEGATIVE [facility] Methamphetamines [id number] 17:53:00 Test Item Value Reference Range Interpretation Comments Urine Methamphetamines Screen (test NEGATIVE NEGATIVE code = 95271-5) [facility] Falls[facility]piates [id number] 17:53:00 Test Item Value Reference Range Interpretation Comments Opiates Screen (test code = 99315-6) NEGATIVE NEGATIVE [facility] Amphetamines [id number] 17:53:00 Test Item Value Reference Range Interpretation Comments Urine Amphetamines Screen (test code NEGATIVE NEGATIVE = 01817-4) [facility] FallsBenzodiazepines [id number] 17:53:00 Test Item Value Reference Range Interpretation Comments Benzodiazepines Screen (test code = NEGATIVE NEGATIVE 38225-3) [facility] FallsTricyclic Antidepressants [id number] 17:53:00 Test Item Value Reference Range Interpretation Comments Tricyclic Antidepressants Screen NEGATIVE NEGATIVE (test code = 61764-7) [facility] FallsMethadone [id number] 17:53:00 Test Item Value Reference Range Interpretation Comments Methadone Screen (test code = NEGATIVE NEGATIVE 00845-8) [facility] Barbiturates [id number] 17:53:00 Test Item Value Reference Range Interpretation Comments Urine Barbiturates Screen (test code NEGATIVE NEGATIVE = 08522-6) [facility] FallsOxycodone [id number] 17:53:00 Test Item Value Reference Range Interpretation Comments Oxycodone Screen (test code = NEGATIVE NEGATIVE 12800-0) [facility] FallsPropoxyphene [id number] 17:53:00 Test Item Value Reference Range Interpretation Comments Propoxyphene Screen (test code = NEGATIVE NEGATIVE 61417-6) [facility] Buprenorphine [id number] 17:53:00 Test Item Value Reference Range Interpretation Comments Urine Buprenorphine Screen (test NEGATIVE NEGATIVE code = 3414-0) CUT OFF CONCENTRATIONS:AMPHETAMINE 500 ng/mlBARBITURATES 200 ng/mlBENZODIAZEPINES 150 ng/mlBUPRENORPHINE 10 ng/mlCOCAINE 150 ng/mlMETHAMPHETAMINE 500 ng/mlMETHADONE 200 ng/mlOPIATES 100 ng/hhMELOGLIIA730 ng/mlPHENCYCLIDINE 25 ng/mlPROPOXYPHENE 300 ng/mlCANNIBINOIDS 50 ng/mlTRICYCLIC ANTIDEPRESSANTS 300 ng/ml ATTENTION:It is important to remember that the [facility] [facility] [employer] device, likeother instant drug testing immunoassays are screening testsand they give a preliminary result. A presumptive positiveresult(s)should be explored for possible alternativeexplanations- i.e. known related/unrelated cross reactivec ompounds, etc. Alternative, more specific methods likeGC/MS OR LC/MS should be utilized to obtain a definitiveconfirmed quantitative result. A presumptive positive result for any drug does not indicatethe level of intoxication, administration route orconcentration of that drug in the urine specimen. A negative result may not necessarily indicate drug-freeurine. Negative results can be obtained when drug is presentbut below the cut-off level of the test. [facility] [id number] 17:53:00 Test Item Value Reference Range Interpretation Comments Urine Color (test code = 21833-6) [place] YELLOW Substances that cause abnormal urine color may affect thereadability of test pads on urinalysis reagent strips. Thesesubstances include visible levels of blood or bilirubin anddrugs containing dyes (e.g., Pyridium, Azo Gantrisin, AzoGantanol), nitrofurantion (Macrodantin, Furadantin), orriboflavin.[facility] [id number] 17:53:00 Test Item Value Reference Range Interpretation Comments Urine Clarity (test code = 32873-4) Cloudy CLEAR [facility] [id number] 17:53:00 Test Item Value Reference Range Interpretation Comments Urine Glucose (test code = 5792-7) NEGATIVE NEGATIVE [facility] [id number] 17:53:00 Test Item Value Reference Range Interpretation Comments Urine Bilirubin (test code = 5770-3) NEGATIVE NEGATIVE [facility] [id number] 17:53:00 Test Item Value Reference Range Interpretation Comments Urine Ketones (test code = 5797-6) NEGATIVE NEGATIVE [facility] Specific [id number] 17:53:00 Test Item Value Reference Range Interpretation Comments Urine Specific [place] (test code = 1.014 1.002-1.030 5811-5) [facility] [id number] 17:53:00 Test Item Value Reference Range Interpretation Comments Urine Blood (test code = 54221-2) NEGATIVE NEGATIVE [facility] [id number] 17:53:00 Test Item Value Reference Range Interpretation Comments Urine pH (test code = 5803-2) 7 5.0-8.0 [facility] [id number] 17:53:00 Test Item Value Reference Range Interpretation Comments Urine Protein (test code = 5804-0) NEGATIVE NEGATIVE [facility] Qkfbwdfdmkdx4542-79-14 17:53:00 Test Item Value Reference Range Interpretation Comments Urine Urobilinogen (test code = 4.0 NEGATIVE 73645-3) [facility] [id number] 17:53:00 Test Item Value Reference Range Interpretation Comments Urine Nitrite (test code = 5802-4) NEGATIVE NEGATIVE [facility] Leukocyte [id number] 17:53:00 Test Item Value Reference Range Interpretation Comments Urine Leukocyte Esterase (test code = 25 NEGATIVE 19620-4) [facility] [id number] 17:53:00 Test Item Value Reference Range Interpretation Comments Urine RBC (test code = 25374-8) 0-2 0-2 [facility] [id number] 17:53:00 Test Item Value Reference Range Interpretation Comments Urine WBC (test code = 36204-4) 3-5 0-5 [facility] Squamous Epithelial [id number] 17:53:00 Test Item Value Reference Range Interpretation Comments Urine Squamous Epithelial Cells (test 31-50 0-5 code = 16338-1) [facility] [id number] 17:53:00 Test Item Value Reference Range Interpretation Comments Urine Bacteria (test code = 69969-7) RARE NEGATIVE [facility] Hyaline [id number] 17:53:00 Test Item Value Reference Range Interpretation Comments Urine Hyaline Casts (test code = 0-2 0-2 99295-1) [facility] Amorphous [id number] 17:53:00 Test Item Value Reference Range Interpretation Comments Urine Amorphous Crystals (test OCCASIONAL NEGATIVE code = 89182-7) [facility] [id number] 17:53:00 Test Item Value Reference Range Interpretation Comments Urine Mucus (test code = 12932-5) 2+ NEGATIVE [facility] Hyaline [id number] 17:53:00 Test Item Value Reference Range Interpretation Comments Urine Hyaline Casts (test code = 0-2 0-2 29924-4) [facility] Amorphous [id number] 17:53:00 Test Item Value Reference Range Interpretation Comments Urine Amorphous Crystals (test OCCASIONAL NEGATIVE code = 77922-7) [facility] FallsProthrombin [id number] 16:30:00 Test Item Value Reference Range Interpretation Comments Prothrombin Time (test code = 5964-2) 16.0 10.0-12.9 [facility] FallsINR International Normalized [id number] 16:30:00 Test Item Value Reference Range Interpretation Comments INR International Normalized Ratio 1.4 0.91-1.15 (test code = 6301-6) THE INR IS TO BE USED ONLY FOR MONITORING ORAL ANTICOAGULANTTHERAPY. INDICATION INR VALUE 1. Prophylaxis of venous thrombosis 2.0-3.0 (high-risk surgery) Treatment of venous thrombosis Treatment of PEPrevention of systemic embolism Tissue heart valves AMI (to prevent systemic embolism) Valvular heart disease Atrial fibrillation Bileaflet mechanical valve in aortic position 2. Mechanical prosthetic heart valves (high risk) 2.5-3.5 Thrombosis and Antiphospholipid syndrome Prevention of recurrent [place] Sixth ACCP Consensus Conference on Antithrombotic Therapy,Chest 2001; 119:Supplement 8-21.[facility]Act[facility] Partial Thromboplast [id number] 16:30:00 Test Item Value Reference Range Interpretation Comments Activated Partial Thromboplast Time 42.7 25.1-36.5 (test code = 3173-2) [facility] FallsAmylase [id number] 16:30:00 Test Item Value Reference Range Interpretation Comments Amylase Level (test code = 1798-8) 54 36-128 [facility] FallsLipase2020-05-09 16:30:00 Test Item Value Reference Range Interpretation Comments Lipase (test code = 3040-3) 19 22-51 [facility] FallsCreatine [id number] 16:30:00 Test Item Value Reference Range Interpretation Comments Creatine Kinase (test code = 2157-6) 1055 38-234 [facility] FallsCreatine Kinase [id number] 16:30:00 Test Item Value Reference Range Interpretation Comments Creatine Kinase MB (test code = 4.55 0.6-6.3 30383-5) [facility] FallsTroponin [id number] 16:30:00 Test Item Value Reference Range Interpretation Comments Troponin I (test code = 42624-2) < 0.01 0.00-0.03 Troponin I-Interpretation Reference : <0.03 ng/mL NEGATIVE 0.04 - 0.49 ng/mL EQUIVOCAL = OR >0.5 ng/mL CONSISTENT WITH ACUTE MYOCARDIAL INJURY 98% of confirmed AMI patients will have at least one valuein a set or serial specimens >0.50 ng/ml. 99% of normals are between 0.0 - 0.10 ng/ml. Serial samples on a patient that are all <0.10 ng/mleffectively rules out AMI. Persistently increasedtroponin I values that are above theupper limit of normal but below the threshold for AMIindicate mycardial injury but not necessarily an ischemicmechanism of injury. Troponin Important Points 1. Troponin is specific for myocardial injury but not forAMI. Elevated troponin levels above the upper limit ofnormal but below the AMI cutoff may be present in cardiacinjury other then AMI and represent some degree of risk. 2. Elevated troponin levels inconsistent with patienthistory or clinical condition should be considered a sign toinvestigate for other cardiac conditions. 3. Serial sampling is critical for accurate diagnosis.[facility] FallsMyoglobin 2019-12-12 16:30:00 Test Item Value Reference Range Interpretation Comments Myoglobin (test code = 2639-3) 1884 14.3-65.8 [facility] FallsB-Type Natriuretic [id number] 16:30:00 Test Item Value Reference Range Interpretation Comments B-Type Natriuretic Peptide (test code = 34 0-100 09092-6) [facility] FallsBlood [id number] 16:30:00 Test Item Value Reference Range Interpretation Comments Blood Culture (test code NO GROWTH AT 48 HRS = Blood Culture) [facility] FallsB-Type Natriuretic [id number] 16:30:00 Test Item Value Reference Range Interpretation Comments B-Type Natriuretic Peptide (test code = 34 0-100 65517-0) [facility] [id number] 16:30:00 Test Item Value Reference Range Interpretation Comments Blood Culture (test code NO GROWTH AT 5 DAYS. = Blood Culture) [facility] [id number] 16:16:00 Test Item Value Reference Range Interpretation Comments Blood Culture (test code NO GROWTH AT 48 HRS = Blood Culture) [facility] [id number] 16:16:00 Test Item Value Reference Range Interpretation Comments Blood Culture (test code NO GROWTH AT 5 DAYS. = Blood Culture) [facility]- SP PARACENTESIS W [id number] 08:09:00 Patient Name: AMAURI CAPELLAN Unit No: [id number] EXAMS: CPT CODE: [id number] SP PARACENTESIS W [id number] Site ID: [id number] EXAMINATION: Ultrasound-guided paracentesis. INDICATION: Ascites. CONSENT: Informed consent was obtained from the patient. The risks, benefits, potential complications and alternatives were reviewed and all questions answered to the patient's satisfaction. Sedation/Medications: None. FINDINGS: ascites. PROCEDURE: After sterile preparation and draping, 1% lidocaine was utilized for local anesthesia. Following sterile preparation and local anesthetic and using 2 D real-time ultrasound for guidance, a 5 Fr sheath on a trocar needle was introduced into the peritoneal fluid collection in the right lower quadrant from an anterior approach. Images of needle position documented. The sheath was advanced into the deepest fluid pocket and a total of 12.6 liters of harrison-colored fluid was then evacuated from the peritoneum without difficulty. Fluid was submitted to the laboratory. No immediate complications. IMPRESSION: Successful ultrasound guided paracentesis. at 0809 Reported and signed by: Shilo Tesfaye CC: May Dewitt MD; Oscar Mcleod MD; Shilo Tesfaye MD Dictated Date/Time: 05/04/2019 (0809) Technologist: Toby Giles Fluoro Time: DAP (Gy m2): Air Kerma (mGy): Trnscrpt: 05/04/2019 (0809) [facility] CenterEst[facility] NAME: AMAURI CAPELLAN Interventional Lab PHYS: Shilo Newton MD [address] [place] [address] : 1970 AGE: 48 SEX: F [place], [place] [address] LOC: B.243 W PHONE #: EXAM DATE: 05/01/2019 STATUS: DIS IN FAX #: RAD #: D/C DT 05/02/2019 PAGE 1 Signed ReportBASIC METABOLIC [id number] 03:45:00 Test Item Value Reference Range Interpretation Comments SODIUM (test code = 134.0 mmol/L 133-144 N NA) POTASSIUM (test code 3.7 mmol/L 3.5-5.1 N = K) CHLORIDE (test code 109 mmol/L 95-105 H = CL) CARBON DIOXIDE (test 15 mmol/L 21-32 LL ON 04/06 03/23 AT code = CO2) 0344, B.LAB.CHIEF DEPUTY SHERIFF CALLED TO JENNY CARTER . The report was confirmed by re ad back protocols Y,N:Y . ANION GAP (test code 10.0 GAP calc 4.0-15.0 N = GAP) GLUCOSE (test code = 115 MG/DL 70-110 H GLU) BLOOD UREA NITROGEN 22 MG/DL 7-18 H (test code = BUN) CREATININE (test 0.97 MG/DL 0.55-1.30 N Results may be code = CREAT) depressed if patient is takingN-Acetylc yste ine (NAC) and Metamizole (Dipyrone). CALCIUM (test code = 7.5 MG/DL 8.5-10.1 L CA) INDEX HEMOLYSIS 1 NORMAL <10 MG 1 NORMAL (test code = Index/DL HEMINDEX) INDEX ICTERIC (test 2 TRACE 2-5 MG 1 NORMAL code = ICTINDEX) Index/DL INDEX LIPEMIA (test 1 NORMAL <50 MG 1 NORMAL code = LIPINDEX) Index/DL Is this a LINE draw? NVANCOMYCIN [id number] 22:26:00 Test Item Value Reference Range Interpretation Comments VANCOMYCIN TROUGH 23.1 mcG/ML 10-20 H (test code = VANCT) -------- VANCO MYCIN TROUGH MONITORI NG GOALS:. Vancomy johanny trough should b e obtained prior to 4th dose with Q 8H and Q 12H intervals.. Vancomycin trou gh should be obtai michael prior to 3rd do se with Q 24H and Q 48H intervals.. Vancomycin peak s are not recommended for routine monitoring.---- ------ ----- ------ Indication Trou gh Goal (mcg/mL)------- ------ -- ------ Bacteremia, Endocarditis, 15-20 Osteomyelitis, MRSA pneumonia, heal thcare acquired pneumo pearl, meningitis, cul tures with EDMUNDO of 2 f or Vancomycin----- ------ ------ ------ Cellulitis, emp irical coverage 10-15 ------ - ------ UTI, pediatric patient 10-15 ------ - ------ Renal Function Note - Serum creatinin e and blood urea nitr ogen should be monit ored at baseline and every 48H while on Vancomycin. Is this a LINE draw? N- NM MYOCRD SPECT R/S [id number] 12:15:00 Patient Name: AMAURI CAPELLAN Unit No: [id number] EXAMS: CPT CODE: [id number] NM MYOCRD SPECT R/S MULT 60251 The patient exercised according to standard Lexiscan protocol and received 13 mCi of technetium sestamibi at rest and 30.4 mCi of technetium sestamibi during Lexiscan infusion. Baseline EKG showed normal sinus rhythmwith nonspecific T wave changes. During lexiscan infusion, there were no further EKG changes Myocardial perfusion images show homogenous radiotracer uptake throughout the left ventricle without any perfusion defects. Gated SPECT images show normal left ventricular wall motion and thickening with an overall ejection fraction of 68 %. Conclusion: Normal myocardial perfusion study Normal left ventricular wall function. at 1215 Reported and signed by: Magdalene Smart M.D. Nuclear Medicine Cardiology exams performed on dual head cameras with appropriate software for processing and reporting. CC: Juani Florez NP; Oscar Solano NAME: AMAURI CAPELLAN MEDICAL IMAGING PHYS: Juani Ruiz NP [address] [place] [address] : 1970 AGE: 48 SEX: F [place] [address] LOC: B.560 W PHONE #: [phone] EXAM DATE: 05/01/2019 STATUS: ADM IN FAX #: [phone] RAD NO: DC Dt: PAGE 1 Signed Rep ort Patient Name: AMAURI CAPELLAN Unit No: [id number] EXAMS: CPT CODE: [id number] NM MYOCRD SPECT R/S MULT 39229 (Continued) Technologist: Claudia Daniel; Courtney Campbell; ... Transcribed Date/Time: 05/01/2019 (1210) - [email or web address] Orig Print D/T: S: 05/01/2019 (3907) DILLON Solano NAME: AMAURI CAPELLAN MEDICAL IMAGING PHYS: Juani Ruiz [address] : 1970 AGE: 48 SEX: Jo SOLANO, BHAV[place] [address] LOC: B.243 W PHONE #: [phone] EXAM DATE: 05/01/2019 STATUS: ADM IN FAX #: [phone] RAD NO: DC Dt: PAGE 2 Signed ReportBASIC METABOLIC [id number] 03:49:00 Test Item Value Reference Range Interpretation Comments SODIUM (test code = 136.0 mmol/L 133-144 N NA) POTASSIUM (test code 3.6 mmol/L 3.5-5.1 N = K) CHLORIDE (test code 111 mmol/L 95-105 H = CL) CARBON DIOXIDE (test 16 mmol/L 21-32 L code = CO2) ANION GAP (test code 9.0 GAP calc 4.0-15.0 N = GAP) GLUCOSE (test code = 97 MG/DL 70-110 N GLU) BLOOD UREA NITROGEN 24 MG/DL 7-18 H (test code = BUN) CREATININE (test 0.96 MG/DL 0.55-1.30 N Results may be code = CREAT) depressed if patient is takingN-Acetylc yste ine (NAC) and Metamizole (Dipyrone). CALCIUM (test code = 7.4 MG/DL 8.5-10.1 L CA) INDEX HEMOLYSIS 1 NORMAL <10 MG 1 NORMAL (test code = Index/DL HEMINDEX) INDEX ICTERIC (test 2 TRACE 2-5 MG 1 NORMAL code = ICTINDEX) Index/DL INDEX LIPEMIA (test 1 NORMAL <50 MG 1 NORMAL code = LIPINDEX) Index/DL Is this a LINE draw? NBASIC METABOLIC [id number] 03:40:00 Test Item Value Reference Range Interpretation Comments SODIUM (test code = NA) 136.0 mmol/L 133-144 N POTASSIUM (test code = K) 3.6 mmol/L 3.5-5.1 N CHLORIDE (test code = CL) 111 mmol/L 95-105 H CARBON DIOXIDE (test code mmol/L 21-32 = CO2) ANION GAP (test code = GAP calc 4.0-15.0 GAP) GLUCOSE (test code = GLU) MG/DL 70-110 BLOOD UREA NITROGEN (test MG/DL 7-18 code = BUN) CREATININE (test code = MG/DL 0.55-1.30 CREAT) CALCIUM (test code = CA) 7.4 MG/DL 8.5-10.1 L INDEX HEMOLYSIS (test 1 NORMAL <10 MG 1 NORMAL code = HEMINDEX) Index/DL INDEX ICTERIC (test code 2 TRACE 2-5 MG 1 NORMAL = ICTINDEX) Index/DL INDEX LIPEMIA (test code 1 NORMAL <50 MG 1 NORMAL = LIPINDEX) Index/DL Is this a LINE draw? [facility] W/AUTO [id number] 03:32:00 Test Item Value Reference Range Interpretation Comments WHITE BLOOD CELL (test code = 9.5 K/mm3 4.1-12.1 N WBC) RED BLOOD CELL (test code = RBC) 4.07 M/mm3 3.8-5.5 N HEMOGLOBIN (test code = HGB) 12.3 G/DL 10.6-15.8 N HEMATOCRIT (test code = HCT) 36.8 % 31.8-47.4 N MEAN CELL VOLUME (test code = 90.4 fL 80.1-101.1 N MCV) MEAN CELL HGB (test code = MCH) 30.2 pg 25.3-35.3 N MEAN CELL HGB CONCETRATION (test 33.4 G/DL 32.7-35.1 N code = MCHC) RED CELL DISTRIBUTION WIDTH 18.3 % 12.2-16.4 H (test code = RDW) RED CELL DISTRIBUTION WIDTH 53.1 fL 36.4-46.3 H (test code = RDW-SD) PLATELET COUNT (test code = PLT) 102 K/mm3 155-337 L MEAN PLATELET VOLUME (test code 11.3 fL 6.8-11.2 H = MPV) GRANULOCYTE % (test code = GR%) 76.7 % 37.8-82.6 N IMMATURE GRANULOCYTE % (test 4.6 % 0.0-2.0 H code = IG%) LYMPHOCYTE % (test code = LY%) 4.0 % 14.1-45.4 L MONOCYTE % (test code = MO%) 10.5 % 2.5-11.7 N EOSINOPHIL % (test code = EO%) 3.6 % 0.0-6.2 N BASOPHIL % (test code = BA%) 0.6 % 0.0-2.1 N NUCLEATED RBC % (test code = 0.0 /100WBC% 0.0-1.0 N NRBC%) GRANULOCYTE # (test code = GR#) 7.31 k/mm3 2.0-13.7 N IMMATURE GRANULOCYTE # (test 0.44 K/mm3 0.00-0.03 H code = IG#) LYMPHOCYTE # (test code = LY#) 0.38 K/mm3 0.6-3.8 L MONOCYTE # (test code = MO#) 1.00 K/mm3 0.11-0.59 H EOSINOPHIL # (test code = EO#) 0.34 K/mm3 0.0-0.4 N BASOPHIL # (test code = BA#) 0.06 K/mm3 0.0-0.1 N NUCLEATED RBC # (test code = 0.00 K/mm3 0.0-0.05 N NRBC#) GLUCOSE BEDSIDE [id number] 11:36:00 Test Item Value Reference Range Interpretation Comments GLUCOSE BEDSIDE TESTING (test code 121 MG/DL 70-119 H = GLUBED) CBC W/MANUAL [id number] 06:50:00 Test Item Value Reference Range Interpretation Comments WHITE BLOOD CELL (test 10.8 K/mm3 4.1-12.1 N code = WBC) RED BLOOD CELL (test 4.28 M/mm3 3.8-5.5 N code = RBC) HEMOGLOBIN (test code = 12.7 G/DL 10.6-15.8 N HGB) HEMATOCRIT (test code = 37.2 % 31.8-47.4 N HCT) MEAN CELL VOLUME (test 86.9 fL 80.1-101.1 N code = MCV) MEAN CELL HGB (test code 29.7 pg 25.3-35.3 N = MCH) MEAN CELL HGB 34.1 G/DL 32.7-35.1 N CONCETRATION (test code = MCHC) RED CELL DISTRIBUTION 17.4 % 12.2-16.4 H WIDTH (test code = RDW) RED CELL DISTRIBUTION 50.4 fL 36.4-46.3 H WIDTH (test code = RDW-SD) PLATELET COUNT (test 115 K/mm3 155-337 L code = PLT) MEAN PLATELET VOLUME 11.1 fL 6.8-11.2 N (test code = MPV) GRANULOCYTE % (test code 79.5 % 37.8-82.6 N = GR%) IMMATURE GRANULOCYTE % 4.9 % 0.0-2.0 H (test code = IG%) LYMPHOCYTE % (test code 3.9 % 14.1-45.4 L = LY%) MONOCYTE % (test code = 9.4 % 2.5-11.7 N MO%) EOSINOPHIL % (test code 1.8 % 0.0-6.2 N = EO%) BASOPHIL % (test code = 0.5 % 0.0-2.1 N BA%) NUCLEATED RBC % (test 0.0 /100WBC% 0.0-1.0 N code = NRBC%) GRANULOCYTE # (test code 8.56 k/mm3 2.0-13.7 N = GR#) IMMATURE GRANULOCYTE # 0.53 K/mm3 0.00-0.03 H (test code = IG#) LYMPHOCYTE # (test code 0.42 K/mm3 0.6-3.8 L = LY#) MONOCYTE # (test code = 1.01 K/mm3 0.11-0.59 H MO#) EOSINOPHIL # (test code 0.19 K/mm3 0.0-0.4 N = EO#) BASOPHIL # (test code = 0.05 K/mm3 0.0-0.1 N BA#) NUCLEATED RBC # (test 0.00 K/mm3 0.0-0.05 N code = NRBC#) MANUAL DIFF REQUIRED MAN DIFF INDICATED CRITERIA (test code = MDIFF) DIFF/SCN WBC [id number] 06:50:00 Test Item Value Reference Range Interpretation Comments TOTAL CELLS COUNTED (test 100 #CELLS >100 code = TCC) SEGMENTED NEUTROPHILS (test 82 % 40-75 H code = SEG) LYMPHOCYTE (test code = 4 % 18.7-40.6 L LYMPH) MONOCYTE (test code = MON) 10 % 3.8-11.4 N EOSINOPHIL (test code = EOS) 2 % 0.0-4.1 N METAMYELOCYTE (test code = 1 % 0-2 N META) MYELOCYTE (test code = MYELO) 1 % 0-1 N POLYCHROMASIA (test code = SLIGHT ON SCAN NONE POLC) ANISOCYTOSIS (test code = SLIGHT ON SCAN NONE ANISO) PLATELET ESTIMATE (test code SL DECR ON SCAN ADEQUATE = PLTEST) BASIC METABOLIC [id number] 05:10:00 Test Item Value Reference Range Interpretation Comments SODIUM (test code = 136.0 mmol/L 133-144 N NA) POTASSIUM (test code 4.2 mmol/L 3.5-5.1 N = K) CHLORIDE (test code 111 mmol/L 95-105 H = CL) CARBON DIOXIDE (test 15 mmol/L 21-32 LL ON 04/06 01/21 AT code = CO2) 0510, B.LAB.AR CALLED TO KIMBERLY MCDONALD. The repo rt was confirmed b y read back emery cols Y,N: Y. ANION GAP (test code 10.0 GAP calc 4.0-15.0 N = GAP) GLUCOSE (test code = 117 MG/DL 70-110 H GLU) BLOOD UREA NITROGEN 38 MG/DL 7-18 H (test code = BUN) CREATININE (test 1.09 MG/DL 0.55-1.30 N Results may be code = CREAT) depressed if patient is takingN-Acetylc yste ine (NAC) and Metamizole (Dipyrone). CALCIUM (test code = 7.7 MG/DL 8.5-10.1 L CA) INDEX HEMOLYSIS 1 NORMAL <10 MG 1 NORMAL (test code = Index/DL HEMINDEX) INDEX ICTERIC (test 1 NORMAL <2 MG 1 NORMAL code = ICTINDEX) Index/DL INDEX LIPEMIA (test 1 NORMAL <50 MG 1 NORMAL code = LIPINDEX) Index/DL CBC W/MANUAL [id number] 04:26:00 Test Item Value Reference Range Interpretation Comments WHITE BLOOD CELL (test 10.8 K/mm3 4.1-12.1 N code = WBC) RED BLOOD CELL (test 4.28 M/mm3 3.8-5.5 N code = RBC) HEMOGLOBIN (test code = 12.7 G/DL 10.6-15.8 N HGB) HEMATOCRIT (test code = 37.2 % 31.8-47.4 N HCT) MEAN CELL VOLUME (test 86.9 fL 80.1-101.1 N code = MCV) MEAN CELL HGB (test code 29.7 pg 25.3-35.3 N = MCH) MEAN CELL HGB 34.1 G/DL 32.7-35.1 N CONCETRATION (test code = MCHC) RED CELL DISTRIBUTION 17.4 % 12.2-16.4 H WIDTH (test code = RDW) RED CELL DISTRIBUTION 50.4 fL 36.4-46.3 H WIDTH (test code = RDW-SD) PLATELET COUNT (test 115 K/mm3 155-337 L code = PLT) MEAN PLATELET VOLUME 11.1 fL 6.8-11.2 N (test code = MPV) GRANULOCYTE % (test code 79.5 % 37.8-82.6 N = GR%) IMMATURE GRANULOCYTE % 4.9 % 0.0-2.0 H (test code = IG%) LYMPHOCYTE % (test code 3.9 % 14.1-45.4 L = LY%) MONOCYTE % (test code = 9.4 % 2.5-11.7 N MO%) EOSINOPHIL % (test code 1.8 % 0.0-6.2 N = EO%) BASOPHIL % (test code = 0.5 % 0.0-2.1 N BA%) NUCLEATED RBC % (test 0.0 /100WBC% 0.0-1.0 N code = NRBC%) GRANULOCYTE # (test code 8.56 k/mm3 2.0-13.7 N = GR#) IMMATURE GRANULOCYTE # 0.53 K/mm3 0.00-0.03 H (test code = IG#) LYMPHOCYTE # (test code 0.42 K/mm3 0.6-3.8 L = LY#) MONOCYTE # (test code = 1.01 K/mm3 0.11-0.59 H MO#) EOSINOPHIL # (test code 0.19 K/mm3 0.0-0.4 N = EO#) BASOPHIL # (test code = 0.05 K/mm3 0.0-0.1 N BA#) NUCLEATED RBC # (test 0.00 K/mm3 0.0-0.05 N code = NRBC#) MANUAL DIFF REQUIRED MAN DIFF INDICATED CRITERIA (test code = MDIFF) DIFF/SCN WBC [id number] 04:26:00 Test Item Value Reference Range Interpretation Comments TOTAL CELLS COUNTED (test code = #CELLS >100 TCC) SEGMENTED NEUTROPHILS (test code = % 40-75 SEG) LYMPHOCYTE (test code = LYMPH) % 18.7-40.6 MORPHOLOGY COMMENT (test code = MOC) ON SCAN NORMAL RBCS PLATELET ESTIMATE (test code = ON SCAN ADEQUATE PLTEST) CBC W/MANUAL [id number] 04:26:00 Test Item Value Reference Range Interpretation Comments WHITE BLOOD CELL (test 10.8 K/mm3 4.1-12.1 N code = WBC) RED BLOOD CELL (test 4.28 M/mm3 3.8-5.5 N code = RBC) HEMOGLOBIN (test code = 12.7 G/DL 10.6-15.8 N HGB) HEMATOCRIT (test code = 37.2 % 31.8-47.4 N HCT) MEAN CELL VOLUME (test 86.9 fL 80.1-101.1 N code = MCV) MEAN CELL HGB (test code 29.7 pg 25.3-35.3 N = MCH) MEAN CELL HGB 34.1 G/DL 32.7-35.1 N CONCETRATION (test code = MCHC) RED CELL DISTRIBUTION 17.4 % 12.2-16.4 H WIDTH (test code = RDW) RED CELL DISTRIBUTION 50.4 fL 36.4-46.3 H WIDTH (test code = RDW-SD) PLATELET COUNT (test 115 K/mm3 155-337 L code = PLT) MEAN PLATELET VOLUME 11.1 fL 6.8-11.2 N (test code = MPV) GRANULOCYTE % (test code 79.5 % 37.8-82.6 N = GR%) IMMATURE GRANULOCYTE % 4.9 % 0.0-2.0 H (test code = IG%) LYMPHOCYTE % (test code 3.9 % 14.1-45.4 L = LY%) MONOCYTE % (test code = 9.4 % 2.5-11.7 N MO%) EOSINOPHIL % (test code 1.8 % 0.0-6.2 N = EO%) BASOPHIL % (test code = 0.5 % 0.0-2.1 N BA%) NUCLEATED RBC % (test 0.0 /100WBC% 0.0-1.0 N code = NRBC%) GRANULOCYTE # (test code 8.56 k/mm3 2.0-13.7 N = GR#) IMMATURE GRANULOCYTE # 0.53 K/mm3 0.00-0.03 H (test code = IG#) LYMPHOCYTE # (test code 0.42 K/mm3 0.6-3.8 L = LY#) MONOCYTE # (test code = 1.01 K/mm3 0.11-0.59 H MO#) EOSINOPHIL # (test code 0.19 K/mm3 0.0-0.4 N = EO#) BASOPHIL # (test code = 0.05 K/mm3 0.0-0.1 N BA#) NUCLEATED RBC # (test 0.00 K/mm3 0.0-0.05 N code = NRBC#) MANUAL DIFF REQUIRED MAN DIFF INDICATED CRITERIA (test code = MDIFF) DIFF/SCN WBC [id number] 04:26:00 Test Item Value Reference Range Interpretation Comments TOTAL CELLS COUNTED (test code = #CELLS >100 TCC) SEGMENTED NEUTROPHILS (test code = % 40-75 SEG) LYMPHOCYTE (test code = LYMPH) % 18.7-40.6 MORPHOLOGY COMMENT (test code = MOC) ON SCAN NORMAL RBCS PLATELET ESTIMATE (test code = ON SCAN ADEQUATE PLTEST) HGB [id number] 22:43:00 Test Item Value Reference Range Interpretation Comments RED BLOOD CELL (test code = RBC) 4.44 M/mm3 3.8-5.5 N HEMOGLOBIN (test code = HGB) 13.4 G/DL 10.6-15.8 N HEMATOCRIT (test code = HCT) 39.3 % 31.8-47.4 N MEAN CELL VOLUME (test code = MCV) 88.5 fL 80.1-101.1 N PERITONEAL FLD CELL [id number] 13:22:00 Test Item Value Reference Range Interpretation Comments PERITONEAL FLD COLOR STRAW DESCRIP. COLORLESS (test code = COLPT) PERITONEAL FLD CLEAR DESCRIP. CLEAR APPEARANCE (test code = APPPT) PERITONEAL FLD WBC 126 #/mm3 0-300 N (test code = WBCPT) PERITONEAL FLD RBC 495 #/mm3 0-0 H (test code = RBCPT) PERITONEAL FLD POLY 78 % 0-49 H (test code = POLYPT) PERITONEAL FLD 12 % 0-25 N LYMPHOCYTE (test code = LYMPHPT) PERITONEAL FLD 10 % 0-71 N MONOCYTE (test code = MONOPT) PERITONEAL FLD FEW NONE MACROPHAGE (test code = MACPT) PERITONEAL FLD RARE NONE MESOTHELIAL (test code = MESPT) PERITONEAL FLD DIFF PATH REVIEW. NONE WBC'S- I NCREASED COMMENT (test code = COMMENT NEUTROP HILS NO COMPT) ORGANISMS IDENTIFIED. Gianfranco ESPARZA MD. PERITONEAL FLD [id number] 13:22:00 Test Item Value Reference Interpretation Comments Range PERITONEAL FLD 112 mg/dL () GLUCOSE (test : code = GLUPT) Peritoneal : P leural : Synovial :: _: :___ :: : Transudate : Exudate : :: _: : :___ :: Not Estab. : Eq ual to simultaneously drawn plasma :: _: : The method perf ormance specifications have not been established for this test in body fluid. The test result should be integ rated into clinical contex t for interpretation. The reference intervals and o ther method performancespec ifications have not been establ ished for this test. Thetest r esult should be integrated into the clinical contextfor inte rpretation. PERITONEAL FLD [id number] 13:22:00 Test Item Value Reference Range Interpretation Comments PERITONEAL FLD LDH 59 IU/L () (test code = LDHPT) : Pe ritoneal : Pleural : Syn ovial : CSF :: : :_ : :: : Transudate: Exu date : : :: : __: :_ : :: Not Estab. : <200 U /L : >200 U/L : <240 U/L : Not Estab.:: :___ : ____:____ ___: The method performa nce specifications have not been establishe d for this test in shana dy fluid. The test result should be integrated i nto the clinical contex t for interpretation. The reference inter vals and other method performancespec ification s have not been established for this test. Thetest r esult should be integ rated into the clinic al contextfor interpretation. Performed At: [facility] [address] [place] , [place] [id number] Dagoberto Ricardo MD Ph:[phone] PERITONEAL FLD [id number] 13:22:00 Test Item Value Reference Range Interpretation Comments PERITONEAL FLD 11 U/L () AMYLASE (test code = AMYPT) : Peritone al : Pleural : Synov ial :: _: : :: : Singh sudate : Exudate : :: _: ___: : :: 88-109 U/L : Not Estab. : Not Es tab.: Not Estab. :: _: ___: : : The met hod performance spe cifications have not been e stablished for this test i n body fluid. The test result should be integ rated into the clinical co ntext for interpretation. The method performance spe cifications have not beenes tablished for this test i n body fluid. The test resultshould be integrated into the clinic al context forinterpretati on. CBC W/MANUAL [id number] 13:12:00 Test Item Value Reference Range Interpretation Comments WHITE BLOOD CELL (test 10.6 K/mm3 4.1-12.1 N code = WBC) RED BLOOD CELL (test 3.57 M/mm3 3.8-5.5 L code = RBC) HEMOGLOBIN (test code = 10.6 G/DL 10.6-15.8 N HGB) HEMATOCRIT (test code = 30.9 % 31.8-47.4 L HCT) MEAN CELL VOLUME (test 86.6 fL 80.1-101.1 N code = MCV) MEAN CELL HGB (test code 29.7 pg 25.3-35.3 N = MCH) MEAN CELL HGB 34.3 G/DL 32.7-35.1 N CONCETRATION (test code = MCHC) RED CELL DISTRIBUTION 15.9 % 12.2-16.4 N WIDTH (test code = RDW) RED CELL DISTRIBUTION 48.7 fL 36.4-46.3 H WIDTH (test code = RDW-SD) PLATELET COUNT (test 91 K/mm3 155-337 L code = PLT) MEAN PLATELET VOLUME 10.9 fL 6.8-11.2 N (test code = MPV) GRANULOCYTE % (test code 81.0 % 37.8-82.6 N = GR%) IMMATURE GRANULOCYTE % 5.1 % 0.0-2.0 H (test code = IG%) LYMPHOCYTE % (test code 4.0 % 14.1-45.4 L = LY%) MONOCYTE % (test code = 9.5 % 2.5-11.7 N MO%) EOSINOPHIL % (test code 0.3 % 0.0-6.2 N = EO%) BASOPHIL % (test code = 0.1 % 0.0-2.1 N BA%) NUCLEATED RBC % (test 0.5 /100WBC% 0.0-1.0 N code = NRBC%) GRANULOCYTE # (test code 8.57 k/mm3 2.0-13.7 N = GR#) IMMATURE GRANULOCYTE # 0.54 K/mm3 0.00-0.03 H (test code = IG#) LYMPHOCYTE # (test code 0.42 K/mm3 0.6-3.8 L = LY#) MONOCYTE # (test code = 1.01 K/mm3 0.11-0.59 H MO#) EOSINOPHIL # (test code 0.03 K/mm3 0.0-0.4 N = EO#) BASOPHIL # (test code = 0.01 K/mm3 0.0-0.1 N BA#) NUCLEATED RBC # (test 0.05 K/mm3 0.0-0.05 N code = NRBC#) MANUAL DIFF REQUIRED MAN DIFF INDICATED CRITERIA (test code = MDIFF) DIFF/SCN WBC [id number] 13:12:00 Test Item Value Reference Range Interpretation Comments TOTAL CELLS COUNTED (test 100 #CELLS >100 code = TCC) SEGMENTED NEUTROPHILS (test 91 % 40-75 H code = SEG) LYMPHOCYTE (test code = 1 % 18.7-40.6 L LYMPH) MONOCYTE (test code = MON) 6 % 3.8-11.4 N EOSINOPHIL (test code = EOS) 1 % 0.0-4.1 N MYELOCYTE (test code = MYELO) 1 % 0-1 N POLYCHROMASIA (test code = SLIGHT ON SCAN NONE POLC) PLATELET ESTIMATE (test code SL DECR ON SCAN ADEQUATE = PLTEST) CBC W/MANUAL [id number] 11:53:00 Test Item Value Reference Range Interpretation Comments WHITE BLOOD CELL (test 10.6 K/mm3 4.1-12.1 N code = WBC) RED BLOOD CELL (test 3.57 M/mm3 3.8-5.5 L code = RBC) HEMOGLOBIN (test code = 10.6 G/DL 10.6-15.8 N HGB) HEMATOCRIT (test code = 30.9 % 31.8-47.4 L HCT) MEAN CELL VOLUME (test 86.6 fL 80.1-101.1 N code = MCV) MEAN CELL HGB (test code 29.7 pg 25.3-35.3 N = MCH) MEAN CELL HGB 34.3 G/DL 32.7-35.1 N CONCETRATION (test code = MCHC) RED CELL DISTRIBUTION 15.9 % 12.2-16.4 N WIDTH (test code = RDW) RED CELL DISTRIBUTION 48.7 fL 36.4-46.3 H WIDTH (test code = RDW-SD) PLATELET COUNT (test 91 K/mm3 155-337 L code = PLT) MEAN PLATELET VOLUME 10.9 fL 6.8-11.2 N (test code = MPV) GRANULOCYTE % (test code 81.0 % 37.8-82.6 N = GR%) IMMATURE GRANULOCYTE % 5.1 % 0.0-2.0 H (test code = IG%) LYMPHOCYTE % (test code 4.0 % 14.1-45.4 L = LY%) MONOCYTE % (test code = 9.5 % 2.5-11.7 N MO%) EOSINOPHIL % (test code 0.3 % 0.0-6.2 N = EO%) BASOPHIL % (test code = 0.1 % 0.0-2.1 N BA%) NUCLEATED RBC % (test 0.5 /100WBC% 0.0-1.0 N code = NRBC%) GRANULOCYTE # (test code 8.57 k/mm3 2.0-13.7 N = GR#) IMMATURE GRANULOCYTE # 0.54 K/mm3 0.00-0.03 H (test code = IG#) LYMPHOCYTE # (test code 0.42 K/mm3 0.6-3.8 L = LY#) MONOCYTE # (test code = 1.01 K/mm3 0.11-0.59 H MO#) EOSINOPHIL # (test code 0.03 K/mm3 0.0-0.4 N = EO#) BASOPHIL # (test code = 0.01 K/mm3 0.0-0.1 N BA#) NUCLEATED RBC # (test 0.05 K/mm3 0.0-0.05 N code = NRBC#) MANUAL DIFF REQUIRED MAN DIFF INDICATED CRITERIA (test code = MDIFF) DIFF/SCN WBC [id number] 11:53:00 Test Item Value Reference Range Interpretation Comments TOTAL CELLS COUNTED (test code = #CELLS >100 TCC) SEGMENTED NEUTROPHILS (test code = % 40-75 SEG) LYMPHOCYTE (test code = LYMPH) % 18.7-40.6 MORPHOLOGY COMMENT (test code = MOC) ON SCAN NORMAL RBCS PLATELET ESTIMATE (test code = ON SCAN ADEQUATE PLTEST) CBC W/MANUAL [id number] 11:53:00 Test Item Value Reference Range Interpretation Comments WHITE BLOOD CELL (test 10.6 K/mm3 4.1-12.1 N code = WBC) RED BLOOD CELL (test 3.57 M/mm3 3.8-5.5 L code = RBC) HEMOGLOBIN (test code = 10.6 G/DL 10.6-15.8 N HGB) HEMATOCRIT (test code = 30.9 % 31.8-47.4 L HCT) MEAN CELL VOLUME (test 86.6 fL 80.1-101.1 N code = MCV) MEAN CELL HGB (test code 29.7 pg 25.3-35.3 N = MCH) MEAN CELL HGB 34.3 G/DL 32.7-35.1 N CONCETRATION (test code = MCHC) RED CELL DISTRIBUTION 15.9 % 12.2-16.4 N WIDTH (test code = RDW) RED CELL DISTRIBUTION 48.7 fL 36.4-46.3 H WIDTH (test code = RDW-SD) PLATELET COUNT (test 91 K/mm3 155-337 L code = PLT) MEAN PLATELET VOLUME 10.9 fL 6.8-11.2 N (test code = MPV) GRANULOCYTE % (test code 81.0 % 37.8-82.6 N = GR%) IMMATURE GRANULOCYTE % 5.1 % 0.0-2.0 H (test code = IG%) LYMPHOCYTE % (test code 4.0 % 14.1-45.4 L = LY%) MONOCYTE % (test code = 9.5 % 2.5-11.7 N MO%) EOSINOPHIL % (test code 0.3 % 0.0-6.2 N = EO%) BASOPHIL % (test code = 0.1 % 0.0-2.1 N BA%) NUCLEATED RBC % (test 0.5 /100WBC% 0.0-1.0 N code = NRBC%) GRANULOCYTE # (test code 8.57 k/mm3 2.0-13.7 N = GR#) IMMATURE GRANULOCYTE # 0.54 K/mm3 0.00-0.03 H (test code = IG#) LYMPHOCYTE # (test code 0.42 K/mm3 0.6-3.8 L = LY#) MONOCYTE # (test code = 1.01 K/mm3 0.11-0.59 H MO#) EOSINOPHIL # (test code 0.03 K/mm3 0.0-0.4 N = EO#) BASOPHIL # (test code = 0.01 K/mm3 0.0-0.1 N BA#) NUCLEATED RBC # (test 0.05 K/mm3 0.0-0.05 N code = NRBC#) MANUAL DIFF REQUIRED MAN DIFF INDICATED CRITERIA (test code = MDIFF) DIFF/SCN WBC [id number] 11:53:00 Test Item Value Reference Range Interpretation Comments TOTAL CELLS COUNTED (test code = #CELLS >100 TCC) SEGMENTED NEUTROPHILS (test code = % 40-75 SEG) LYMPHOCYTE (test code = LYMPH) % 18.7-40.6 MORPHOLOGY COMMENT (test code = MOC) ON SCAN NORMAL RBCS PLATELET ESTIMATE (test code = ON SCAN ADEQUATE PLTEST) PERITONEAL FLD CELL [id number] 11:10:00 Test Item Value Reference Range Interpretation Comments PERITONEAL FLD COLOR (test STRAW DESCRIP. COLORLESS code = COLPT) PERITONEAL FLD APPEARANCE CLEAR DESCRIP. CLEAR (test code = APPPT) PERITONEAL FLD WBC (test code 126 #/mm3 0-300 N = WBCPT) PERITONEAL FLD RBC (test code 495 #/mm3 0-0 H = RBCPT) PERITONEAL FLD POLY (test code 78 % 0-49 H = POLYPT) PERITONEAL FLD LYMPHOCYTE 12 % 0-25 N (test code = LYMPHPT) PERITONEAL FLD MONOCYTE (test 10 % 0-71 N code = MONOPT) PERITONEAL FLD MACROPHAGE FEW NONE (test code = MACPT) PERITONEAL FLD MESOTHELIAL RARE NONE (test code = MESPT) PERITONEAL FLD [id number] 11:10:00 Test Item Value Reference Interpretation Comments Range PERITONEAL FLD 112 mg/dL () GLUCOSE (test : code = GLUPT) Peritoneal : P leural : Synovial :: _: :___ :: : Transudate : Exudate : :: _: : :___ :: Not Estab. : Eq ual to simultaneously drawn plasma :: _: : The method perf ormance specifications have not been established for this test in body fluid. The test result should be integ rated into clinical contex t for interpretation. The reference intervals and o ther method performancespec ifications have not been establ ished for this test. Thetest r esult should be integrated into the clinical contextfor inte rpretation. PERITONEAL FLD [id number] 11:10:00 Test Item Value Reference Range Interpretation Comments PERITONEAL FLD LDH (test code = LDHPT) PERITONEAL FLD [id number] 11:10:00 Test Item Value Reference Range Interpretation Comments PERITONEAL FLD AMYLASE (test code = AMYPT) PERITONEAL FLD CELL [id number] 11:10:00 Test Item Value Reference Range Interpretation Comments PERITONEAL FLD COLOR (test STRAW DESCRIP. COLORLESS code = COLPT) PERITONEAL FLD APPEARANCE CLEAR DESCRIP. CLEAR (test code = APPPT) PERITONEAL FLD WBC (test code 126 #/mm3 0-300 N = WBCPT) PERITONEAL FLD RBC (test code 495 #/mm3 0-0 H = RBCPT) PERITONEAL FLD POLY (test code 78 % 0-49 H = POLYPT) PERITONEAL FLD LYMPHOCYTE 12 % 0-25 N (test code = LYMPHPT) PERITONEAL FLD MONOCYTE (test 10 % 0-71 N code = MONOPT) PERITONEAL FLD MACROPHAGE FEW NONE (test code = MACPT) PERITONEAL FLD MESOTHELIAL RARE NONE (test code = MESPT) PERITONEAL FLD [id number] 11:10:00 Test Item Value Reference Interpretation Comments Range PERITONEAL FLD 112 mg/dL () GLUCOSE (test : code = GLUPT) Peritoneal : P leural : Synovial :: _: :___ :: : Transudate : Exudate : :: _: : :___ :: Not Estab. : Eq ual to simultaneously drawn plasma :: _: : The method perf ormance specifications have not been established for this test in body fluid. The test result should be integ rated into clinical contex t for interpretation. The reference intervals and o ther method performancespec ifications have not been establ ished for this test. Thetest r esult should be integrated into the clinical contextfor inte rpretation. PERITONEAL FLD [id number] 11:10:00 Test Item Value Reference Range Interpretation Comments PERITONEAL FLD LDH (test code = LDHPT) PERITONEAL FLD [id number] 11:10:00 Test Item Value Reference Range Interpretation Comments PERITONEAL FLD 11 U/L () AMYLASE (test code = AMYPT) : Peritone al : Pleural : Synov ial :: _: : :: : Singh sudate : Exudate : :: _: ___: : :: 88-109 U/L : Not Estab. : Not Es tab.: Not Estab. :: _: ___: : : The met hod performance spe cifications have not been e stablished for this test i n body fluid. The test result should be integ rated into the clinical co ntext for interpretation. The method performance spe cifications have not beenes tablished for this test i n body fluid. The test resultshould be integrated into the clinic al context forinterpretati on. PERITONEAL FLD CELL [id number] 11:10:00 Test Item Value Reference Range Interpretation Comments PERITONEAL FLD COLOR (test STRAW DESCRIP. COLORLESS code = COLPT) PERITONEAL FLD APPEARANCE CLEAR DESCRIP. CLEAR (test code = APPPT) PERITONEAL FLD WBC (test code 126 #/mm3 0-300 N = WBCPT) PERITONEAL FLD RBC (test code 495 #/mm3 0-0 H = RBCPT) PERITONEAL FLD POLY (test code 78 % 0-49 H = POLYPT) PERITONEAL FLD LYMPHOCYTE 12 % 0-25 N (test code = LYMPHPT) PERITONEAL FLD MONOCYTE (test 10 % 0-71 N code = MONOPT) PERITONEAL FLD MACROPHAGE FEW NONE (test code = MACPT) PERITONEAL FLD MESOTHELIAL RARE NONE (test code = MESPT) PERITONEAL FLD [id number] 11:10:00 Test Item Value Reference Interpretation Comments Range PERITONEAL FLD 112 mg/dL () GLUCOSE (test : code = GLUPT) Peritoneal : P leural : Synovial :: _: :___ :: : Transudate : Exudate : :: _: : :___ :: Not Estab. : Eq ual to simultaneously drawn plasma :: _: : The method perf ormance specifications have not been established for this test in body fluid. The test result should be integ rated into clinical contex t for interpretation. The reference intervals and o ther method performancespec ifications have not been establ ished for this test. Thetest r esult should be integrated into the clinical contextfor inte rpretation. PERITONEAL FLD [id number] 11:10:00 Test Item Value Reference Range Interpretation Comments PERITONEAL FLD LDH 59 IU/L () (test code = LDHPT) : Pe ritoneal : Pleural : Syn ovial : CSF :: : :_ : :: : Transudate: Exu date : : :: : __: :_ : :: Not Estab. : <200 U /L : >200 U/L : <240 U/L : Not Estab.:: :___ : ____:____ ___: The method performa nce specifications have not been establishe d for this test in shana dy fluid. The test result should be integrated i nto the clinical contex t for interpretation. The reference inter vals and other method performancespec ification s have not been established for this test. Thetest r esult should be integ rated into the clinic al contextfor interpretation. Performed At: [facility] [address] [facility] [address] [place] , [place] [id number] Kyle L MD Ph:[phone] PERITONEAL FLD [id number] 11:10:00 Test Item Value Reference Range Interpretation Comments PERITONEAL FLD 11 U/L () AMYLASE (test code = AMYPT) : Peritone al : Pleural : Synov ial :: _: : :: : Tra nsudate : Exudate : :: _: ___: : :: 88-109 U/L : Not Estab. : Not Es tab.: Not Estab. :: _: ___: : : The met hod performance spe cifications have not been e stablished for this test i n body fluid. The test result should be integ rated into the clinical co ntext for interpretation. The method performance spe cifications have not beenes tablished for this test i n body fluid. The test resultshould be integrated into the clinic al context forinterpretati on. BODY FLUID [id number] 11:10:00 Test Item Value Reference Range Interpretation Comments BODY FLUID 0.3 g/dL () ALBUMIN (test : code = ALBF) Peritoneal : Pl eural : Synovial :: _: :____ :: : Transudate : Ex udate : :: _: :_ :____ :: Not Estab. : No t Estab. : Not Estab.: Not Est ab. :: _: :_ :____ : The method perf ormance specifications have not been established for this test in body fluid. The test result should be integ rated into the clinical contex t for interpretation. The reference intervals and o ther method performancespec ifications have not been establ ished for this test. Thetest r esult should be integrated into the clinical contextfor inte rpretation. Effective May jermain2018 the reference i nterval for [id number] Albumin, Body Fluid will be changing to Not Estab.Performed At: [facility] [address] [place], [place] [id number] Dagoberto Ricardo MD Ph:[phone] Specimen comments: PERITONEAL FLUIDCBC W/MANUAL [id number] 06:17:00 Test Item Value Reference Range Interpretation Comments WHITE BLOOD CELL (test 12.9 K/mm3 4.1-12.1 H code = WBC) RED BLOOD CELL (test 4.07 M/mm3 3.8-5.5 N code = RBC) HEMOGLOBIN (test code = 12.2 G/DL 10.6-15.8 HGB) HEMATOCRIT (test code = 35.0 % 31.8-47.4 N HCT) MEAN CELL VOLUME (test 86.0 fL 80.1-101.1 N code = MCV) MEAN CELL HGB (test code 30.0 pg 25.3-35.3 N = MCH) MEAN CELL HGB 34.9 G/DL 32.7-35.1 N CONCETRATION (test code = MCHC) RED CELL DISTRIBUTION 15.7 % 12.2-16.4 N WIDTH (test code = RDW) RED CELL DISTRIBUTION 47.8 fL 36.4-46.3 H WIDTH (test code = RDW-SD) PLATELET COUNT (test 111 K/mm3 155-337 L code = PLT) MEAN PLATELET VOLUME 11.1 fL 6.8-11.2 N (test code = MPV) GRANULOCYTE % (test code 79.1 % 37.8-82.6 N = GR%) IMMATURE GRANULOCYTE % 6.1 % 0.0-2.0 H (test code = IG%) LYMPHOCYTE % (test code 3.2 % 14.1-45.4 L = LY%) MONOCYTE % (test code = 11.3 % 2.5-11.7 N MO%) EOSINOPHIL % (test code 0.0 % 0.0-6.2 N = EO%) BASOPHIL % (test code = 0.3 % 0.0-2.1 N BA%) NUCLEATED RBC % (test 0.6 /100WBC% 0.0-1.0 N code = NRBC%) GRANULOCYTE # (test code 10.24 k/mm3 2.0-13.7 N = GR#) IMMATURE GRANULOCYTE # 0.79 K/mm3 0.00-0.03 H (test code = IG#) LYMPHOCYTE # (test code 0.41 K/mm3 0.6-3.8 L = LY#) MONOCYTE # (test code = 1.46 K/mm3 0.11-0.59 H MO#) EOSINOPHIL # (test code 0.00 K/mm3 0.0-0.4 N = EO#) BASOPHIL # (test code = 0.04 K/mm3 0.0-0.1 N BA#) NUCLEATED RBC # (test 0.08 K/mm3 0.0-0.05 H code = NRBC#) MANUAL DIFF REQUIRED MAN DIFF INDICATED CRITERIA (test code = MDIFF) DIFF/SCN WBC [id number] 06:17:00 Test Item Value Reference Range Interpretation Comments TOTAL CELLS COUNTED (test 100 #CELLS >100 code = TCC) SEGMENTED NEUTROPHILS (test 87 % 40-75 H code = SEG) LYMPHOCYTE (test code = 2 % 18.7-40.6 L LYMPH) MONOCYTE (test code = MON) 5 % 3.8-11.4 N METAMYELOCYTE (test code = 5 % 0-2 H META) MYELOCYTE (test code = 1 % 0-1 N MYELO) NUCLEATED RED BLOOD CELL 2.00 #/100WBC 0-0.5 H (test code = NRBC) POLYCHROMASIA (test code = SLIGHT ON SCAN NONE POLC) ANISOCYTOSIS (test code = SLIGHT ON SCAN NONE ANISO) OVALOCYTES (test code = FEW ON SCAN NONE OVAL) ETHAN CELLS (test code = FEW ON SCAN NONE BUR) PLATELET ESTIMATE (test SL DECR ON SCAN ADEQUATE code = PLTEST) PLATELET MORPHOLOGY (test LARGE FEW ON SCAN NORMAL PLTS code = PLTMORPH) BASIC METABOLIC [id number] 04:00:00 Test Item Value Reference Range Interpretation Comments SODIUM (test code = 140.0 mmol/L 133-144 N NA) POTASSIUM (test code 3.3 mmol/L 3.5-5.1 L = K) CHLORIDE (test code 112 mmol/L 95-105 H = CL) CARBON DIOXIDE (test 17 mmol/L 21-32 L code = CO2) ANION GAP (test code 11.0 GAP calc 4.0-15.0 N = GAP) GLUCOSE (test code = 123 MG/DL 70-110 H GLU) BLOOD UREA NITROGEN 49 MG/DL 7-18 H (test code = BUN) CREATININE (test 1.35 MG/DL 0.55-1.30 H Results may be code = CREAT) depressed if patient is takingN-Acetylc yste ine (NAC) and Metamizole (Dipyrone). CALCIUM (test code = 7.6 MG/DL 8.5-10.1 L CA) INDEX HEMOLYSIS 1 NORMAL <10 MG 1 NORMAL (test code = Index/DL HEMINDEX) INDEX ICTERIC (test 2 TRACE 2-5 MG 1 NORMAL code = ICTINDEX) Index/DL INDEX LIPEMIA (test 1 NORMAL <50 MG 1 NORMAL code = LIPINDEX) Index/DL [id number] 04:00:00 Test Item Value Reference Range Interpretation Comments MAGNESIUM (test code = MAG) 1.8 MG/DL 1.6-2.6 N CBC W/MANUAL [id number] 03:57:00 Test Item Value Reference Range Interpretation Comments WHITE BLOOD CELL (test 12.9 K/mm3 4.1-12.1 H code = WBC) RED BLOOD CELL (test 4.07 M/mm3 3.8-5.5 N code = RBC) HEMOGLOBIN (test code = 12.2 G/DL 10.6-15.8 HGB) HEMATOCRIT (test code = 35.0 % 31.8-47.4 N HCT) MEAN CELL VOLUME (test 86.0 fL 80.1-101.1 N code = MCV) MEAN CELL HGB (test code 30.0 pg 25.3-35.3 N = MCH) MEAN CELL HGB 34.9 G/DL 32.7-35.1 N CONCETRATION (test code = MCHC) RED CELL DISTRIBUTION 15.7 % 12.2-16.4 N WIDTH (test code = RDW) RED CELL DISTRIBUTION 47.8 fL 36.4-46.3 H WIDTH (test code = RDW-SD) PLATELET COUNT (test 111 K/mm3 155-337 L code = PLT) MEAN PLATELET VOLUME 11.1 fL 6.8-11.2 N (test code = MPV) GRANULOCYTE % (test code 79.1 % 37.8-82.6 N = GR%) IMMATURE GRANULOCYTE % 6.1 % 0.0-2.0 H (test code = IG%) LYMPHOCYTE % (test code 3.2 % 14.1-45.4 L = LY%) MONOCYTE % (test code = 11.3 % 2.5-11.7 N MO%) EOSINOPHIL % (test code 0.0 % 0.0-6.2 N = EO%) BASOPHIL % (test code = 0.3 % 0.0-2.1 N BA%) NUCLEATED RBC % (test 0.6 /100WBC% 0.0-1.0 N code = NRBC%) GRANULOCYTE # (test code 10.24 k/mm3 2.0-13.7 N = GR#) IMMATURE GRANULOCYTE # 0.79 K/mm3 0.00-0.03 H (test code = IG#) LYMPHOCYTE # (test code 0.41 K/mm3 0.6-3.8 L = LY#) MONOCYTE # (test code = 1.46 K/mm3 0.11-0.59 H MO#) EOSINOPHIL # (test code 0.00 K/mm3 0.0-0.4 N = EO#) BASOPHIL # (test code = 0.04 K/mm3 0.0-0.1 N BA#) NUCLEATED RBC # (test 0.08 K/mm3 0.0-0.05 H code = NRBC#) MANUAL DIFF REQUIRED MAN DIFF INDICATED CRITERIA (test code = MDIFF) DIFF/SCN WBC [id number] 03:57:00 Test Item Value Reference Range Interpretation Comments TOTAL CELLS COUNTED (test code = #CELLS >100 TCC) SEGMENTED NEUTROPHILS (test code = % 40-75 SEG) LYMPHOCYTE (test code = LYMPH) % 18.7-40.6 MORPHOLOGY COMMENT (test code = MOC) ON SCAN NORMAL RBCS PLATELET ESTIMATE (test code = ON SCAN ADEQUATE PLTEST) CBC W/MANUAL [id number] 03:57:00 Test Item Value Reference Range Interpretation Comments WHITE BLOOD CELL (test 12.9 K/mm3 4.1-12.1 H code = WBC) RED BLOOD CELL (test 4.07 M/mm3 3.8-5.5 N code = RBC) HEMOGLOBIN (test code = 12.2 G/DL 10.6-15.8 HGB) HEMATOCRIT (test code = 35.0 % 31.8-47.4 N HCT) MEAN CELL VOLUME (test 86.0 fL 80.1-101.1 N code = MCV) MEAN CELL HGB (test code 30.0 pg 25.3-35.3 N = MCH) MEAN CELL HGB 34.9 G/DL 32.7-35.1 N CONCETRATION (test code = MCHC) RED CELL DISTRIBUTION 15.7 % 12.2-16.4 N WIDTH (test code = RDW) RED CELL DISTRIBUTION 47.8 fL 36.4-46.3 H WIDTH (test code = RDW-SD) PLATELET COUNT (test 111 K/mm3 155-337 L code = PLT) MEAN PLATELET VOLUME 11.1 fL 6.8-11.2 N (test code = MPV) GRANULOCYTE % (test code 79.1 % 37.8-82.6 N = GR%) IMMATURE GRANULOCYTE % 6.1 % 0.0-2.0 H (test code = IG%) LYMPHOCYTE % (test code 3.2 % 14.1-45.4 L = LY%) MONOCYTE % (test code = 11.3 % 2.5-11.7 N MO%) EOSINOPHIL % (test code 0.0 % 0.0-6.2 N = EO%) BASOPHIL % (test code = 0.3 % 0.0-2.1 N BA%) NUCLEATED RBC % (test 0.6 /100WBC% 0.0-1.0 N code = NRBC%) GRANULOCYTE # (test code 10.24 k/mm3 2.0-13.7 N = GR#) IMMATURE GRANULOCYTE # 0.79 K/mm3 0.00-0.03 H (test code = IG#) LYMPHOCYTE # (test code 0.41 K/mm3 0.6-3.8 L = LY#) MONOCYTE # (test code = 1.46 K/mm3 0.11-0.59 H MO#) EOSINOPHIL # (test code 0.00 K/mm3 0.0-0.4 N = EO#) BASOPHIL # (test code = 0.04 K/mm3 0.0-0.1 N BA#) NUCLEATED RBC # (test 0.08 K/mm3 0.0-0.05 H code = NRBC#) MANUAL DIFF REQUIRED MAN DIFF INDICATED CRITERIA (test code = MDIFF) DIFF/SCN WBC [id number] 03:57:00 Test Item Value Reference Range Interpretation Comments TOTAL CELLS COUNTED (test code = #CELLS >100 TCC) SEGMENTED NEUTROPHILS (test code = % 40-75 SEG) LYMPHOCYTE (test code = LYMPH) % 18.7-40.6 MORPHOLOGY COMMENT (test code = MOC) ON SCAN NORMAL RBCS PLATELET ESTIMATE (test code = ON SCAN ADEQUATE PLTEST) CBC W/MANUAL [id number] 19:07:00 Test Item Value Reference Range Interpretation Comments WHITE BLOOD CELL 7.7 K/mm3 4.1-12.1 N (test code = WBC) RED BLOOD CELL (test 2.16 M/mm3 3.8-5.5 L code = RBC) HEMOGLOBIN (test 6.5 G/DL 10.6-15.8 L code = HGB) HEMATOCRIT (test 19.2 % 31.8-47.4 LL ON 04/28/19 AT code = HCT) 1824, B.LAB.PRF CALLED TO ZARA Robertson The report w as confirmed by re ad back protocols Y,N: Y. MEAN CELL VOLUME 88.9 fL 80.1-101.1 N (test code = MCV) MEAN CELL HGB (test 30.1 pg 25.3-35.3 N code = MCH) MEAN CELL HGB 33.9 G/DL 32.7-35.1 N CONCETRATION (test code = MCHC) RED CELL 16.1 % 12.2-16.4 N DISTRIBUTION WIDTH (test code = RDW) RED CELL 50.9 fL 36.4-46.3 H DISTRIBUTION WIDTH (test code = RDW-SD) PLATELET COUNT (test 66 K/mm3 155-337 L code = PLT) MEAN PLATELET VOLUME 10.9 fL 6.8-11.2 N (test code = MPV) GRANULOCYTE % (test 81.0 % 37.8-82.6 N code = GR%) IMMATURE GRANULOCYTE 5.2 % 0.0-2.0 H % (test code = IG%) LYMPHOCYTE % (test 2.6 % 14.1-45.4 L code = LY%) MONOCYTE % (test 11.2 % 2.5-11.7 N code = MO%) EOSINOPHIL % (test 0.0 % 0.0-6.2 N code = EO%) BASOPHIL % (test 0.0 % 0.0-2.1 N code = BA%) NUCLEATED RBC % 1.0 /100WBC% 0.0-1.0 N (test code = NRBC%) GRANULOCYTE # (test 6.21 k/mm3 2.0-13.7 N code = GR#) IMMATURE GRANULOCYTE 0.40 K/mm3 0.00-0.03 H # (test code = IG#) LYMPHOCYTE # (test 0.20 K/mm3 0.6-3.8 L code = LY#) MONOCYTE # (test 0.86 K/mm3 0.11-0.59 H code = MO#) EOSINOPHIL # (test 0.00 K/mm3 0.0-0.4 N code = EO#) BASOPHIL # (test 0.00 K/mm3 0.0-0.1 N code = BA#) NUCLEATED RBC # 0.08 K/mm3 0.0-0.05 H (test code = NRBC#) MANUAL DIFF REQUIRED MAN DIFF CRITERIA (test code = MDIFF) INDICATED DIFF/SCN WBC [id number] 19:07:00 Test Item Value Reference Range Interpretation Comments TOTAL CELLS COUNTED (test 100 #CELLS >100 code = TCC) SEGMENTED NEUTROPHILS (test 93 % 40-75 H code = SEG) LYMPHOCYTE (test code = 4 % 18.7-40.6 L LYMPH) MONOCYTE (test code = MON) 3 % 3.8-11.4 L POLYCHROMASIA (test code = SLIGHT ON SCAN NONE POLC) ANISOCYTOSIS (test code = SLIGHT ON SCAN NONE ANISO) OVALOCYTES (test code = FEW ON SCAN NONE OVAL) TOXIC GRANULATION (test SLIGHT ON SCAN NONE code = TOX) ETHAN CELLS (test code = FEW ON SCAN NONE BUR) PLATELET ESTIMATE (test MOD DECR ON SCAN ADEQUATE A code = PLTEST) PLATELET MORPHOLOGY (test LARGE FEW ON SCAN NORMAL PLTS code = PLTMORPH) CBC W/MANUAL [id number] 19:06:00 Test Item Value Reference Range Interpretation Comments WHITE BLOOD CELL 7.7 K/mm3 4.1-12.1 N (test code = WBC) RED BLOOD CELL (test 2.16 M/mm3 3.8-5.5 L code = RBC) HEMOGLOBIN (test 6.5 G/DL 10.6-15.8 L code = HGB) HEMATOCRIT (test 19.2 % 31.8-47.4 LL ON 04/28/19 AT code = HCT) 1824, B.LAB.PRF CALLED TO ZARA R M. The report w as confirmed by re ad back protocols Y,N: Y. MEAN CELL VOLUME 88.9 fL 80.1-101.1 N (test code = MCV) MEAN CELL HGB (test 30.1 pg 25.3-35.3 N code = MCH) MEAN CELL HGB 33.9 G/DL 32.7-35.1 N CONCETRATION (test code = MCHC) RED CELL 16.1 % 12.2-16.4 N DISTRIBUTION WIDTH (test code = RDW) RED CELL 50.9 fL 36.4-46.3 H DISTRIBUTION WIDTH (test code = RDW-SD) PLATELET COUNT (test 66 K/mm3 155-337 L code = PLT) MEAN PLATELET VOLUME 10.9 fL 6.8-11.2 N (test code = MPV) GRANULOCYTE % (test 81.0 % 37.8-82.6 N code = GR%) IMMATURE GRANULOCYTE 5.2 % 0.0-2.0 H % (test code = IG%) LYMPHOCYTE % (test 2.6 % 14.1-45.4 L code = LY%) MONOCYTE % (test 11.2 % 2.5-11.7 N code = MO%) EOSINOPHIL % (test 0.0 % 0.0-6.2 N code = EO%) BASOPHIL % (test 0.0 % 0.0-2.1 N code = BA%) NUCLEATED RBC % 1.0 /100WBC% 0.0-1.0 N (test code = NRBC%) GRANULOCYTE # (test 6.21 k/mm3 2.0-13.7 N code = GR#) IMMATURE GRANULOCYTE 0.40 K/mm3 0.00-0.03 H # (test code = IG#) LYMPHOCYTE # (test 0.20 K/mm3 0.6-3.8 L code = LY#) MONOCYTE # (test 0.86 K/mm3 0.11-0.59 H code = MO#) EOSINOPHIL # (test 0.00 K/mm3 0.0-0.4 N code = EO#) BASOPHIL # (test 0.00 K/mm3 0.0-0.1 N code = BA#) NUCLEATED RBC # 0.08 K/mm3 0.0-0.05 H (test code = NRBC#) MANUAL DIFF REQUIRED MAN DIFF CRITERIA (test code = MDIFF) INDICATED DIFF/SCN WBC [id number] 19:06:00 Test Item Value Reference Range Interpretation Comments TOTAL CELLS COUNTED (test 100 #CELLS >100 code = TCC) SEGMENTED NEUTROPHILS (test 93 % 40-75 H code = SEG) LYMPHOCYTE (test code = 4 % 18.7-40.6 L LYMPH) MONOCYTE (test code = MON) 3 % 3.8-11.4 L POLYCHROMASIA (test code = SLIGHT ON SCAN NONE POLC) ANISOCYTOSIS (test code = SLIGHT ON SCAN NONE ANISO) OVALOCYTES (test code = FEW ON SCAN NONE OVAL) ETHAN CELLS (test code = FEW ON SCAN NONE BUR) PLATELET ESTIMATE (test MOD DECR ON SCAN ADEQUATE A code = PLTEST) PLATELET MORPHOLOGY (test LARGE FEW ON SCAN NORMAL PLTS code = PLTMORPH) CBC W/MANUAL [id number] 18:24:00 Test Item Value Reference Range Interpretation Comments WHITE BLOOD CELL 7.7 K/mm3 4.1-12.1 N (test code = WBC) RED BLOOD CELL (test 2.16 M/mm3 3.8-5.5 L code = RBC) HEMOGLOBIN (test 6.5 G/DL 10.6-15.8 L code = HGB) HEMATOCRIT (test 19.2 % 31.8-47.4 LL ON 04/28/19 AT code = HCT) 1824, B.LAB.PRF CALLED TO ZARA Robertson The report w as confirmed by re ad back protocols Y,N: Y. MEAN CELL VOLUME 88.9 fL 80.1-101.1 N (test code = MCV) MEAN CELL HGB (test 30.1 pg 25.3-35.3 N code = MCH) MEAN CELL HGB 33.9 G/DL 32.7-35.1 N CONCETRATION (test code = MCHC) RED CELL 16.1 % 12.2-16.4 N DISTRIBUTION WIDTH (test code = RDW) RED CELL 50.9 fL 36.4-46.3 H DISTRIBUTION WIDTH (test code = RDW-SD) PLATELET COUNT (test 66 K/mm3 155-337 L code = PLT) MEAN PLATELET VOLUME 10.9 fL 6.8-11.2 N (test code = MPV) GRANULOCYTE % (test 81.0 % 37.8-82.6 N code = GR%) IMMATURE GRANULOCYTE 5.2 % 0.0-2.0 H % (test code = IG%) LYMPHOCYTE % (test 2.6 % 14.1-45.4 L code = LY%) MONOCYTE % (test 11.2 % 2.5-11.7 N code = MO%) EOSINOPHIL % (test 0.0 % 0.0-6.2 N code = EO%) BASOPHIL % (test 0.0 % 0.0-2.1 N code = BA%) NUCLEATED RBC % 1.0 /100WBC% 0.0-1.0 N (test code = NRBC%) GRANULOCYTE # (test 6.21 k/mm3 2.0-13.7 N code = GR#) IMMATURE GRANULOCYTE 0.40 K/mm3 0.00-0.03 H # (test code = IG#) LYMPHOCYTE # (test 0.20 K/mm3 0.6-3.8 L code = LY#) MONOCYTE # (test 0.86 K/mm3 0.11-0.59 H code = MO#) EOSINOPHIL # (test 0.00 K/mm3 0.0-0.4 N code = EO#) BASOPHIL # (test 0.00 K/mm3 0.0-0.1 N code = BA#) NUCLEATED RBC # 0.08 K/mm3 0.0-0.05 H (test code = NRBC#) MANUAL DIFF REQUIRED MAN DIFF CRITERIA (test code = MDIFF) INDICATED DIFF/SCN WBC [id number] 18:24:00 Test Item Value Reference Range Interpretation Comments TOTAL CELLS COUNTED (test code = #CELLS >100 TCC) SEGMENTED NEUTROPHILS (test code = % 40-75 SEG) LYMPHOCYTE (test code = LYMPH) % 18.7-40.6 MORPHOLOGY COMMENT (test code = MOC) ON SCAN NORMAL RBCS PLATELET ESTIMATE (test code = ON SCAN ADEQUATE PLTEST) CBC W/MANUAL [id number] 18:24:00 Test Item Value Reference Range Interpretation Comments WHITE BLOOD CELL 7.7 K/mm3 4.1-12.1 N (test code = WBC) RED BLOOD CELL (test 2.16 M/mm3 3.8-5.5 L code = RBC) HEMOGLOBIN (test 6.5 G/DL 10.6-15.8 L code = HGB) HEMATOCRIT (test 19.2 % 31.8-47.4 LL ON 04/28/19 AT code = HCT) 1824, B.LAB.PRF CALLED TO ZARA Robertson The report w as confirmed by re ad back protocols Y,N: Y. MEAN CELL VOLUME 88.9 fL 80.1-101.1 N (test code = MCV) MEAN CELL HGB (test 30.1 pg 25.3-35.3 N code = MCH) MEAN CELL HGB 33.9 G/DL 32.7-35.1 N CONCETRATION (test code = MCHC) RED CELL 16.1 % 12.2-16.4 N DISTRIBUTION WIDTH (test code = RDW) RED CELL 50.9 fL 36.4-46.3 H DISTRIBUTION WIDTH (test code = RDW-SD) PLATELET COUNT (test 66 K/mm3 155-337 L code = PLT) MEAN PLATELET VOLUME 10.9 fL 6.8-11.2 N (test code = MPV) GRANULOCYTE % (test 81.0 % 37.8-82.6 N code = GR%) IMMATURE GRANULOCYTE 5.2 % 0.0-2.0 H % (test code = IG%) LYMPHOCYTE % (test 2.6 % 14.1-45.4 L code = LY%) MONOCYTE % (test 11.2 % 2.5-11.7 N code = MO%) EOSINOPHIL % (test 0.0 % 0.0-6.2 N code = EO%) BASOPHIL % (test 0.0 % 0.0-2.1 N code = BA%) NUCLEATED RBC % 1.0 /100WBC% 0.0-1.0 N (test code = NRBC%) GRANULOCYTE # (test 6.21 k/mm3 2.0-13.7 N code = GR#) IMMATURE GRANULOCYTE 0.40 K/mm3 0.00-0.03 H # (test code = IG#) LYMPHOCYTE # (test 0.20 K/mm3 0.6-3.8 L code = LY#) MONOCYTE # (test 0.86 K/mm3 0.11-0.59 H code = MO#) EOSINOPHIL # (test 0.00 K/mm3 0.0-0.4 N code = EO#) BASOPHIL # (test 0.00 K/mm3 0.0-0.1 N code = BA#) NUCLEATED RBC # 0.08 K/mm3 0.0-0.05 H (test code = NRBC#) MANUAL DIFF REQUIRED MAN DIFF CRITERIA (test code = MDIFF) INDICATED DIFF/SCN WBC [id number] 18:24:00 Test Item Value Reference Range Interpretation Comments TOTAL CELLS COUNTED (test code = #CELLS >100 TCC) SEGMENTED NEUTROPHILS (test code = % 40-75 SEG) LYMPHOCYTE (test code = LYMPH) % 18.7-40.6 MORPHOLOGY COMMENT (test code = MOC) ON SCAN NORMAL RBCS PLATELET ESTIMATE (test code = ON SCAN ADEQUATE PLTEST) PERITONEAL FLD CELL [id number] 17:43:00 Test Item Value Reference Range Interpretation Comments PERITONEAL FLD COLOR (test STRAW DESCRIP. COLORLESS code = COLPT) PERITONEAL FLD APPEARANCE CLEAR DESCRIP. CLEAR (test code = APPPT) PERITONEAL FLD WBC (test code 126 #/mm3 0-300 N = WBCPT) PERITONEAL FLD RBC (test code 495 #/mm3 0-0 H = RBCPT) PERITONEAL FLD POLY (test code 78 % 0-49 H = POLYPT) PERITONEAL FLD LYMPHOCYTE 12 % 0-25 N (test code = LYMPHPT) PERITONEAL FLD MONOCYTE (test 10 % 0-71 N code = MONOPT) PERITONEAL FLD MACROPHAGE FEW NONE (test code = MACPT) PERITONEAL FLD MESOTHELIAL RARE NONE (test code = MESPT) PERITONEAL FLD [id number] 17:43:00 Test Item Value Reference Range Interpretation Comments PERITONEAL FLD GLUCOSE (test code = GLUPT) PERITONEAL FLD [id number] 17:43:00 Test Item Value Reference Range Interpretation Comments PERITONEAL FLD LDH (test code = LDHPT) PERITONEAL FLD [id number] 17:43:00 Test Item Value Reference Range Interpretation Comments PERITONEAL FLD AMYLASE (test code = AMYPT) PERITONEAL FLD CELL [id number] 16:44:00 Test Item Value Reference Range Interpretation Comments PERITONEAL FLD COLOR (test STRAW DESCRIP. COLORLESS code = COLPT) PERITONEAL FLD APPEARANCE CLEAR DESCRIP. CLEAR (test code = APPPT) PERITONEAL FLD WBC (test code 126 #/mm3 0-300 N = WBCPT) PERITONEAL FLD RBC (test code 495 #/mm3 0-0 H = RBCPT) PERITONEAL FLD POLY (test code % 0-49 = POLYPT) PERITONEAL FLD [id number] 16:44:00 Test Item Value Reference Range Interpretation Comments PERITONEAL FLD GLUCOSE (test code = GLUPT) PERITONEAL FLD [id number] 16:44:00 Test Item Value Reference Range Interpretation Comments PERITONEAL FLD LDH (test code = LDHPT) PERITONEAL FLD [id number] 16:44:00 Test Item Value Reference Range Interpretation Comments PERITONEAL FLD AMYLASE (test code = AMYPT) PERITONEAL FLD CELL [id number] 16:39:00 Test Item Value Reference Range Interpretation Comments PERITONEAL FLD COLOR (test code = DESCRIP. COLORLESS COLPT) PERITONEAL FLD APPEARANCE (test DESCRIP. CLEAR code = APPPT) PERITONEAL FLD WBC (test code = 126 #/mm3 0-300 N WBCPT) PERITONEAL FLD RBC (test code = 495 #/mm3 0-0 H RBCPT) PERITONEAL FLD POLY (test code = % 0-49 POLYPT) PERITONEAL FLD [id number] 16:39:00 Test Item Value Reference Range Interpretation Comments PERITONEAL FLD GLUCOSE (test code = GLUPT) PERITONEAL FLD [id number] 16:39:00 Test Item Value Reference Range Interpretation Comments PERITONEAL FLD LDH (test code = LDHPT) PERITONEAL FLD [id number] 16:39:00 Test Item Value Reference Range Interpretation Comments PERITONEAL FLD AMYLASE (test code = AMYPT) PERITONEAL FLD CELL [id number] 16:35:00 Test Item Value Reference Range Interpretation Comments PERITONEAL FLD COLOR (test code = DESCRIP. COLORLESS COLPT) PERITONEAL FLD APPEARANCE (test DESCRIP. CLEAR code = APPPT) PERITONEAL FLD WBC (test code = #/mm3 0-300 WBCPT) PERITONEAL FLD RBC (test code = 495 #/mm3 0-0 H RBCPT) PERITONEAL FLD POLY (test code = % 0-49 POLYPT) PERITONEAL FLD [id number] 16:35:00 Test Item Value Reference Range Interpretation Comments PERITONEAL FLD GLUCOSE (test code = GLUPT) PERITONEAL FLD [id number] 16:35:00 Test Item Value Reference Range Interpretation Comments PERITONEAL FLD LDH (test code = LDHPT) PERITONEAL FLD [id number] 16:35:00 Test Item Value Reference Range Interpretation Comments PERITONEAL FLD AMYLASE (test code = AMYPT) - SP PARACENTESIS W [id number] 15:59:00 Patient Name: AMAURI CAPELLAN Unit No: [id number] EXAMS: CPT CODE: [id number] SP PARACENTESIS W [id number] Site ID: [id number] EXAMINATION: Ultrasound-guided paracentesis. INDICATION: Ascites. CONSENT: Informed consent was obtained from the patient. The risks, benefits, potential complications and alternatives were reviewed and all questions answered to the patient's satisfaction. Sedation/Medications: None. FINDINGS: ascites. PROCEDURE: After sterile preparation and draping, 1% lidocaine was utilized for local anesthesia. Following sterile preparation and local anesthetic and using 2 D real-time ultrasound for guidance, a 5 Fr sheath on a trocar needle was introduced into the peritoneal fluid collectionin the right lower quadrant from an anterior approach. Images of needle position documented. The sheath was advanced into the deepest fluid pocket and a total of 10 liters of harrison-colored fluid was then evacuated from the peritoneum without difficulty. Fluid was submitted to the laboratory. No immediate complications. IMPRESSION: Successful ultrasound guided paracentesis. at 1559 Reported and signed by: Shilo Tesfaye CC: Oscar Mcleod MD;Shilo Tesfaye MD Dictated Date/Time: 04/28/2019 (1559) Technologist: Tamar Ruiz Time: DAP (Gy m2): Air Kerma (mGy): Trnscrpt: 04/28/2019 (1559) [place] [place] [facility] PHYS: Shilo Newton MD [address] [place] [address] Blvd : 1970 AGE: 48 SEX: F [place], [place] [address] LOC: [id number] PHONE #: EXAM DATE: 04/28/2019 STATUS:ADM IN FAX #: RAD #: D/C DT PAGE 1 Signed ReportUA RFLX MICR CULT IF [id number] 14:08:00 Test Item Value Reference Range Interpretation Comments UA COLOR (test code = YELLOW DESCRIPT YELLOW COLU) UA APPEARANCE (test code CLEAR DESCRIPT CLEAR = APPU) UA GLUCOSE DIPSTICK (test NEGATIVE (0) mg/dL (NEG) 0 code = DGLUU) UA BILIRUBIN DIPSTICK NEGATIVE (0) mg/dL (NEG) 0 (test code = BILU) UA KETONE DIPSTICK (test 0 (NEG) mg/dL (NEG) 0 code = KETU) UA SPECIFIC GRAVITY (test 1.014 SG 1.001-1.035 code = SGU) UA BLOOD DIPSTICK (test NEGATIVE (0) mg/DL (NEG) 0 code = CHASIDY) UA PH DIPSTICK (test code 6.0 pH UNITS 4.6-8.0 = BALBIR) UA PROTEIN DIPSTICK (test NEGATIVE (0) mg/dL <30 (1+) code = PROU) UA UROBILINIOGEN DIPSTICK NORMAL (0) mg/dL <2.0 (1+) (test code = URO) UA NITRITE DIPSTICK (test NEGATIVE (0) SCREEN NEG code = CRYSTAL) UA LEUKOCYTE ESTERASE NEGATIVE (0) (NEG) 0 DIPSTICK (test code = Leuk/mcL LEUU) UA COMMENT (test code = MONROY SPEC Notes SpecComment COMU) UA WBC (test code = WBCU) 0-3 #WBC/HPF 0-3 UA RBC (test code = RBCU) 0-3 #RBC/HPF 0-3 UA BACTERIA (test code = FEW >1 /HPF NONE-FEW BACU) UA SQUAMOUS CELLS (test RARE >0 /HPF NONE-SQepi code = SQU) UA CULTURE NEEDED? (test Crit NOTmet CULT-N/A Cult byWBC code = UACULT) Criteria Indication for culture: Flank PainCBC W/MANUAL [id number] 13:04:00 Test Item Value Reference Range Interpretation Comments WHITE BLOOD CELL (test 9.7 K/mm3 4.1-12.1 N code = WBC) RED BLOOD CELL (test 2.65 M/mm3 3.8-5.5 L code = RBC) HEMOGLOBIN (test code = 7.7 G/DL 10.6-15.8 L HGB) HEMATOCRIT (test code = 23.2 % 31.8-47.4 L HCT) MEAN CELL VOLUME (test 87.5 fL 80.1-101.1 N code = MCV) MEAN CELL HGB (test code 29.1 pg 25.3-35.3 N = MCH) MEAN CELL HGB 33.2 G/DL 32.7-35.1 N CONCETRATION (test code = MCHC) RED CELL DISTRIBUTION 15.7 % 12.2-16.4 N WIDTH (test code = RDW) RED CELL DISTRIBUTION 49.2 fL 36.4-46.3 H WIDTH (test code = RDW-SD) PLATELET COUNT (test 92 K/mm3 155-337 L code = PLT) MEAN PLATELET VOLUME 11.5 fL 6.8-11.2 H (test code = MPV) GRANULOCYTE % (test code 81.8 % 37.8-82.6 N = GR%) IMMATURE GRANULOCYTE % 5.6 % 0.0-2.0 H (test code = IG%) LYMPHOCYTE % (test code 2.8 % 14.1-45.4 L = LY%) MONOCYTE % (test code = 9.7 % 2.5-11.7 N MO%) EOSINOPHIL % (test code 0.0 % 0.0-6.2 N = EO%) BASOPHIL % (test code = 0.1 % 0.0-2.1 N BA%) NUCLEATED RBC % (test 0.9 /100WBC% 0.0-1.0 N code = NRBC%) GRANULOCYTE # (test code 7.93 k/mm3 2.0-13.7 N = GR#) IMMATURE GRANULOCYTE # 0.54 K/mm3 0.00-0.03 H (test code = IG#) LYMPHOCYTE # (test code 0.27 K/mm3 0.6-3.8 L = LY#) MONOCYTE # (test code = 0.94 K/mm3 0.11-0.59 H MO#) EOSINOPHIL # (test code 0.00 K/mm3 0.0-0.4 N = EO#) BASOPHIL # (test code = 0.01 K/mm3 0.0-0.1 N BA#) NUCLEATED RBC # (test 0.09 K/mm3 0.0-0.05 H code = NRBC#) MANUAL DIFF REQUIRED MAN DIFF INDICATED CRITERIA (test code = MDIFF) DIFF/SCN WBC [id number] 13:04:00 Test Item Value Reference Range Interpretation Comments TOTAL CELLS COUNTED (test 100 #CELLS >100 code = TCC) SEGMENTED NEUTROPHILS (test 88 % 40-75 H code = SEG) LYMPHOCYTE (test code = 5 % 18.7-40.6 L LYMPH) MONOCYTE (test code = MON) 3 % 3.8-11.4 L METAMYELOCYTE (test code = 1 % 0-2 N META) MYELOCYTE (test code = MYELO) 3 % 0-1 H NUCLEATED RED BLOOD CELL 1.00 #/100WBC 0-0.5 H (test code = NRBC) POLYCHROMASIA (test code = SLIGHT ON SCAN NONE POLC) ANISOCYTOSIS (test code = SLIGHT ON SCAN NONE ANISO) PLATELET ESTIMATE (test code SL DECR ON SCAN ADEQUATE = PLTEST) CBC W/MANUAL [id number] 12:23:00 Test Item Value Reference Range Interpretation Comments WHITE BLOOD CELL (test 9.7 K/mm3 4.1-12.1 N code = WBC) RED BLOOD CELL (test 2.65 M/mm3 3.8-5.5 L code = RBC) HEMOGLOBIN (test code = 7.7 G/DL 10.6-15.8 L HGB) HEMATOCRIT (test code = 23.2 % 31.8-47.4 L HCT) MEAN CELL VOLUME (test 87.5 fL 80.1-101.1 N code = MCV) MEAN CELL HGB (test code 29.1 pg 25.3-35.3 N = MCH) MEAN CELL HGB 33.2 G/DL 32.7-35.1 N CONCETRATION (test code = MCHC) RED CELL DISTRIBUTION 15.7 % 12.2-16.4 N WIDTH (test code = RDW) RED CELL DISTRIBUTION 49.2 fL 36.4-46.3 H WIDTH (test code = RDW-SD) PLATELET COUNT (test 92 K/mm3 155-337 L code = PLT) MEAN PLATELET VOLUME 11.5 fL 6.8-11.2 H (test code = MPV) GRANULOCYTE % (test code 81.8 % 37.8-82.6 N = GR%) IMMATURE GRANULOCYTE % 5.6 % 0.0-2.0 H (test code = IG%) LYMPHOCYTE % (test code 2.8 % 14.1-45.4 L = LY%) MONOCYTE % (test code = 9.7 % 2.5-11.7 N MO%) EOSINOPHIL % (test code 0.0 % 0.0-6.2 N = EO%) BASOPHIL % (test code = 0.1 % 0.0-2.1 N BA%) NUCLEATED RBC % (test 0.9 /100WBC% 0.0-1.0 N code = NRBC%) GRANULOCYTE # (test code 7.93 k/mm3 2.0-13.7 N = GR#) IMMATURE GRANULOCYTE # 0.54 K/mm3 0.00-0.03 H (test code = IG#) LYMPHOCYTE # (test code 0.27 K/mm3 0.6-3.8 L = LY#) MONOCYTE # (test code = 0.94 K/mm3 0.11-0.59 H MO#) EOSINOPHIL # (test code 0.00 K/mm3 0.0-0.4 N = EO#) BASOPHIL # (test code = 0.01 K/mm3 0.0-0.1 N BA#) NUCLEATED RBC # (test 0.09 K/mm3 0.0-0.05 H code = NRBC#) MANUAL DIFF REQUIRED MAN DIFF INDICATED CRITERIA (test code = MDIFF) DIFF/SCN WBC [id number] 12:23:00 Test Item Value Reference Range Interpretation Comments TOTAL CELLS COUNTED (test code = #CELLS >100 TCC) SEGMENTED NEUTROPHILS (test code = % 40-75 SEG) LYMPHOCYTE (test code = LYMPH) % 18.7-40.6 MORPHOLOGY COMMENT (test code = MOC) ON SCAN NORMAL RBCS PLATELET ESTIMATE (test code = ON SCAN ADEQUATE PLTEST) CBC W/MANUAL [id number] 12:23:00 Test Item Value Reference Range Interpretation Comments WHITE BLOOD CELL (test 9.7 K/mm3 4.1-12.1 N code = WBC) RED BLOOD CELL (test 2.65 M/mm3 3.8-5.5 L code = RBC) HEMOGLOBIN (test code = 7.7 G/DL 10.6-15.8 L HGB) HEMATOCRIT (test code = 23.2 % 31.8-47.4 L HCT) MEAN CELL VOLUME (test 87.5 fL 80.1-101.1 N code = MCV) MEAN CELL HGB (test code 29.1 pg 25.3-35.3 N = MCH) MEAN CELL HGB 33.2 G/DL 32.7-35.1 N CONCETRATION (test code = MCHC) RED CELL DISTRIBUTION 15.7 % 12.2-16.4 N WIDTH (test code = RDW) RED CELL DISTRIBUTION 49.2 fL 36.4-46.3 H WIDTH (test code = RDW-SD) PLATELET COUNT (test 92 K/mm3 155-337 L code = PLT) MEAN PLATELET VOLUME 11.5 fL 6.8-11.2 H (test code = MPV) GRANULOCYTE % (test code 81.8 % 37.8-82.6 N = GR%) IMMATURE GRANULOCYTE % 5.6 % 0.0-2.0 H (test code = IG%) LYMPHOCYTE % (test code 2.8 % 14.1-45.4 L = LY%) MONOCYTE % (test code = 9.7 % 2.5-11.7 N MO%) EOSINOPHIL % (test code 0.0 % 0.0-6.2 N = EO%) BASOPHIL % (test code = 0.1 % 0.0-2.1 N BA%) NUCLEATED RBC % (test 0.9 /100WBC% 0.0-1.0 N code = NRBC%) GRANULOCYTE # (test code 7.93 k/mm3 2.0-13.7 N = GR#) IMMATURE GRANULOCYTE # 0.54 K/mm3 0.00-0.03 H (test code = IG#) LYMPHOCYTE # (test code 0.27 K/mm3 0.6-3.8 L = LY#) MONOCYTE # (test code = 0.94 K/mm3 0.11-0.59 H MO#) EOSINOPHIL # (test code 0.00 K/mm3 0.0-0.4 N = EO#) BASOPHIL # (test code = 0.01 K/mm3 0.0-0.1 N BA#) NUCLEATED RBC # (test 0.09 K/mm3 0.0-0.05 H code = NRBC#) MANUAL DIFF REQUIRED MAN DIFF INDICATED CRITERIA (test code = MDIFF) DIFF/SCN WBC [id number] 12:23:00 Test Item Value Reference Range Interpretation Comments TOTAL CELLS COUNTED (test code = #CELLS >100 TCC) SEGMENTED NEUTROPHILS (test code = % 40-75 SEG) LYMPHOCYTE (test code = LYMPH) % 18.7-40.6 MORPHOLOGY COMMENT (test code = MOC) ON SCAN NORMAL RBCS PLATELET ESTIMATE (test code = ON SCAN ADEQUATE PLTEST) CBC W/MANUAL [id number] 12:10:00 Test Item Value Reference Range Interpretation Comments WHITE BLOOD CELL 14.6 K/mm3 4.1-12.1 H (test code = WBC) RED BLOOD CELL (test 1.07 M/mm3 3.8-5.5 LL code = RBC) HEMOGLOBIN (test 3.2 G/DL 10.6-15.8 LL ON 04/27/19 AT code = HGB) 2028, B.LAB.AK CALLED TO [facility]. The report was confirmed b y read back protocols Y,N: Y. HEMATOCRIT (test 10.8 % 31.8-47.4 LL ON 04/27/19 AT code = HCT) B.LAB.AK CALLED TO [facility]. The report was confirmed by re ad back protocols Y,N: Y. MEAN CELL VOLUME 100.9 fL 80.1-101.1 N (test code = MCV) MEAN CELL HGB (test 29.9 pg 25.3-35.3 N code = MCH) MEAN CELL HGB 29.6 G/DL 32.7-35.1 L CONCETRATION (test code = MCHC) RED CELL 16.5 % 12.2-16.4 H DISTRIBUTION WIDTH (test code = RDW) RED CELL 52.8 fL 36.4-46.3 H DISTRIBUTION WIDTH (test code = RDW-SD) PLATELET COUNT (test 217 K/mm3 155-337 N code = PLT) MEAN PLATELET VOLUME 12.5 fL 6.8-11.2 H (test code = MPV) GRANULOCYTE % (test 71.3 % 37.8-82.6 N code = GR%) IMMATURE GRANULOCYTE 11.6 % 0.0-2.0 H % (test code = IG%) LYMPHOCYTE % (test 4.2 % 14.1-45.4 L code = LY%) MONOCYTE % (test 12.6 % 2.5-11.7 H code = MO%) EOSINOPHIL % (test 0.3 % 0.0-6.2 N code = EO%) BASOPHIL % (test 0.0 % 0.0-2.1 N code = BA%) NUCLEATED RBC % 1.6 /100WBC% 0.0-1.0 H (test code = NRBC%) GRANULOCYTE # (test 10.44 k/mm3 2.0-13.7 N code = GR#) IMMATURE GRANULOCYTE 1.69 K/mm3 0.00-0.03 H # (test code = IG#) LYMPHOCYTE # (test 0.61 K/mm3 0.6-3.8 N code = LY#) MONOCYTE # (test 1.85 K/mm3 0.11-0.59 H code = MO#) EOSINOPHIL # (test 0.04 K/mm3 0.0-0.4 N code = EO#) BASOPHIL # (test 0.00 K/mm3 0.0-0.1 N code = BA#) NUCLEATED RBC # 0.24 K/mm3 0.0-0.05 H (test code = NRBC#) MANUAL DIFF REQUIRED MAN DIFF CRITERIA (test code = MDIFF) INDICATED DIFF/SCN PATHOLOGIST'S [id number] 12:10:00 Test Item Value Reference Range Interpretation Comments PATHOLOGIST'S EXTERNAL COMMENTS RBC'S- HYPOCHR OMIC ANEMIA FINDINGS (test WITH INCREASE D code = PATH) POLYCHROMASIA A NDNRBC'S. WBC'S- LEUKOCYT OSIS WITH LEFT SHIFT. RAREPROMYELOCYT ES IDENTIFIED. Gianfranco ESPARZA MD. WBC [id number] 12:10:00 Test Item Value Reference Range Interpretation Comments TOTAL CELLS COUNTED (test code 100 #CELLS >100 = TCC) SEGMENTED NEUTROPHILS (test 82 % 40-75 H code = SEG) LYMPHOCYTE (test code = LYMPH) 9 % 18.7-40.6 L ATYPICAL LYMPH (test code = 2 % 0-0 H ALYMPH) MONOCYTE (test code = MON) 2 % 3.8-11.4 L MYELOCYTE (test code = MYELO) 4 % 0-1 H PROMYELOCYTE (test code = 1 % 0-0 H PROM) NUCLEATED RED BLOOD CELL (test 1.00 #/100WBC 0-0.5 H code = NRBC) POLYCHROMASIA (test code = SLIGHT ON SCAN NONE POLC) ANISOCYTOSIS (test code = MOD ON SCAN NONE A ANISO) ETHAN CELLS (test code = BUR) FEW ON SCAN NONE PLATELET ESTIMATE (test code = ADEQ ON SCAN ADEQUATE PLTEST) [id number] 10:49:00 Test Item Value Reference Range Interpretation Comments TROPONIN-I 0.141 NG/ML 0.000-0.045 HH Critical values after the (test code = first occurrenc e are excluded TROPI) fromcall docume ntation requirements fo r this analyte due to thepatie nt diagnosis or therapy prot ocols.An elevated tropon in value alone is not sufficie nt todiagnose a myocardial in farction. Rather, the pat ient'sclinical presentation (h istory, physical exam) and ECGshould be used in conj unction with troponin in the diagnostic evaluation of s uspected myocardial infa rction. Aserial samplin g protocol is recommended to facilitate theidentificati on of temporal changes in trop onin levelscharacter istic of [place]. HCG [id number] 09:00:00 Test Item Value Reference Range Interpretation Comments HCG SERUM (test <1 mi-IU/ML 0-3 N INTERPRET B- HCG LEVELS code = HCG) LESS THAN OR EQ UAL TO 3 MIU/ML NEG Specimen comments: PRE-OP ENDOComments to [employer] Machine Operator: BLOOD ALREADY IN LABIs this a LINE draw? NCBC W/MANUAL [id number] 08:42:00 Test Item Value Reference Range Interpretation Comments WHITE BLOOD CELL (test 11.5 K/mm3 4.1-12.1 N code = WBC) RED BLOOD CELL (test 3.35 M/mm3 3.8-5.5 L code = RBC) HEMOGLOBIN (test code = 9.7 G/DL 10.6-15.8 L HGB) HEMATOCRIT (test code = 28.8 % 31.8-47.4 L HCT) MEAN CELL VOLUME (test 86.0 fL 80.1-101.1 code = MCV) MEAN CELL HGB (test code 29.0 pg 25.3-35.3 N = MCH) MEAN CELL HGB 33.7 G/DL 32.7-35.1 N CONCETRATION (test code = MCHC) RED CELL DISTRIBUTION 15.3 % 12.2-16.4 N WIDTH (test code = RDW) RED CELL DISTRIBUTION 46.1 fL 36.4-46.3 N WIDTH (test code = RDW-SD) PLATELET COUNT (test 110 K/mm3 155-337 L code = PLT) MEAN PLATELET VOLUME 11.8 fL 6.8-11.2 H (test code = MPV) GRANULOCYTE % (test code 79.1 % 37.8-82.6 N = GR%) IMMATURE GRANULOCYTE % 7.9 % 0.0-2.0 H (test code = IG%) LYMPHOCYTE % (test code 3.1 % 14.1-45.4 L = LY%) MONOCYTE % (test code = 9.3 % 2.5-11.7 N MO%) EOSINOPHIL % (test code 0.1 % 0.0-6.2 N = EO%) BASOPHIL % (test code = 0.5 % 0.0-2.1 N BA%) NUCLEATED RBC % (test 1.3 /100WBC% 0.0-1.0 H code = NRBC%) GRANULOCYTE # (test code 9.07 k/mm3 2.0-13.7 N = GR#) IMMATURE GRANULOCYTE # 0.90 K/mm3 0.00-0.03 H (test code = IG#) LYMPHOCYTE # (test code 0.35 K/mm3 0.6-3.8 L = LY#) MONOCYTE # (test code = 1.07 K/mm3 0.11-0.59 H MO#) EOSINOPHIL # (test code 0.01 K/mm3 0.0-0.4 N = EO#) BASOPHIL # (test code = 0.06 K/mm3 0.0-0.1 N BA#) NUCLEATED RBC # (test 0.15 K/mm3 0.0-0.05 H code = NRBC#) MANUAL DIFF REQUIRED MAN DIFF INDICATED CRITERIA (test code = MDIFF) DIFF/SCN WBC [id number] 08:42:00 Test Item Value Reference Range Interpretation Comments TOTAL CELLS COUNTED (test 100 #CELLS >100 code = TCC) SEGMENTED NEUTROPHILS (test 86 % 40-75 H code = SEG) LYMPHOCYTE (test code = 2 % 18.7-40.6 L LYMPH) ATYPICAL LYMPH (test code = 1 % 0-0 H ALYMPH) MONOCYTE (test code = MON) 5 % 3.8-11.4 N METAMYELOCYTE (test code = 3 % 0-2 H META) MYELOCYTE (test code = MYELO) 3 % 0-1 H NUCLEATED RED BLOOD CELL 1.00 #/100WBC 0-0.5 H (test code = NRBC) POLYCHROMASIA (test code = SLIGHT ON SCAN NONE POLC) ANISOCYTOSIS (test code = SLIGHT ON SCAN NONE ANISO) OVALOCYTES (test code = OVAL) FEW ON SCAN NONE PLATELET ESTIMATE (test code SL DECR ON SCAN ADEQUATE = PLTEST) CBC W/MANUAL [id number] 07:01:00 Test Item Value Reference Range Interpretation Comments WHITE BLOOD CELL (test 11.5 K/mm3 4.1-12.1 N code = WBC) RED BLOOD CELL (test 3.35 M/mm3 3.8-5.5 L code = RBC) HEMOGLOBIN (test code = 9.7 G/DL 10.6-15.8 L HGB) HEMATOCRIT (test code = 28.8 % 31.8-47.4 L HCT) MEAN CELL VOLUME (test 86.0 fL 80.1-101.1 code = MCV) MEAN CELL HGB (test code 29.0 pg 25.3-35.3 N = MCH) MEAN CELL HGB 33.7 G/DL 32.7-35.1 N CONCETRATION (test code = MCHC) RED CELL DISTRIBUTION 15.3 % 12.2-16.4 N WIDTH (test code = RDW) RED CELL DISTRIBUTION 46.1 fL 36.4-46.3 N WIDTH (test code = RDW-SD) PLATELET COUNT (test 110 K/mm3 155-337 L code = PLT) MEAN PLATELET VOLUME 11.8 fL 6.8-11.2 H (test code = MPV) GRANULOCYTE % (test code 79.1 % 37.8-82.6 N = GR%) IMMATURE GRANULOCYTE % 7.9 % 0.0-2.0 H (test code = IG%) LYMPHOCYTE % (test code 3.1 % 14.1-45.4 L = LY%) MONOCYTE % (test code = 9.3 % 2.5-11.7 N MO%) EOSINOPHIL % (test code 0.1 % 0.0-6.2 N = EO%) BASOPHIL % (test code = 0.5 % 0.0-2.1 N BA%) NUCLEATED RBC % (test 1.3 /100WBC% 0.0-1.0 H code = NRBC%) GRANULOCYTE # (test code 9.07 k/mm3 2.0-13.7 N = GR#) IMMATURE GRANULOCYTE # 0.90 K/mm3 0.00-0.03 H (test code = IG#) LYMPHOCYTE # (test code 0.35 K/mm3 0.6-3.8 L = LY#) MONOCYTE # (test code = 1.07 K/mm3 0.11-0.59 H MO#) EOSINOPHIL # (test code 0.01 K/mm3 0.0-0.4 N = EO#) BASOPHIL # (test code = 0.06 K/mm3 0.0-0.1 N BA#) NUCLEATED RBC # (test 0.15 K/mm3 0.0-0.05 H code = NRBC#) MANUAL DIFF REQUIRED MAN DIFF INDICATED CRITERIA (test code = MDIFF) DIFF/SCN WBC [id number] 07:01:00 Test Item Value Reference Range Interpretation Comments TOTAL CELLS COUNTED (test code = #CELLS >100 TCC) SEGMENTED NEUTROPHILS (test code = % 40-75 SEG) LYMPHOCYTE (test code = LYMPH) % 18.7-40.6 MORPHOLOGY COMMENT (test code = MOC) ON SCAN NORMAL RBCS PLATELET ESTIMATE (test code = ON SCAN ADEQUATE PLTEST) CBC W/MANUAL [id number] 07:01:00 Test Item Value Reference Range Interpretation Comments WHITE BLOOD CELL (test 11.5 K/mm3 4.1-12.1 N code = WBC) RED BLOOD CELL (test 3.35 M/mm3 3.8-5.5 L code = RBC) HEMOGLOBIN (test code = 9.7 G/DL 10.6-15.8 L HGB) HEMATOCRIT (test code = 28.8 % 31.8-47.4 L HCT) MEAN CELL VOLUME (test 86.0 fL 80.1-101.1 code = MCV) MEAN CELL HGB (test code 29.0 pg 25.3-35.3 N = MCH) MEAN CELL HGB 33.7 G/DL 32.7-35.1 N CONCETRATION (test code = MCHC) RED CELL DISTRIBUTION 15.3 % 12.2-16.4 N WIDTH (test code = RDW) RED CELL DISTRIBUTION 46.1 fL 36.4-46.3 N WIDTH (test code = RDW-SD) PLATELET COUNT (test 110 K/mm3 155-337 L code = PLT) MEAN PLATELET VOLUME 11.8 fL 6.8-11.2 H (test code = MPV) GRANULOCYTE % (test code 79.1 % 37.8-82.6 N = GR%) IMMATURE GRANULOCYTE % 7.9 % 0.0-2.0 H (test code = IG%) LYMPHOCYTE % (test code 3.1 % 14.1-45.4 L = LY%) MONOCYTE % (test code = 9.3 % 2.5-11.7 N MO%) EOSINOPHIL % (test code 0.1 % 0.0-6.2 N = EO%) BASOPHIL % (test code = 0.5 % 0.0-2.1 N BA%) NUCLEATED RBC % (test 1.3 /100WBC% 0.0-1.0 H code = NRBC%) GRANULOCYTE # (test code 9.07 k/mm3 2.0-13.7 N = GR#) IMMATURE GRANULOCYTE # 0.90 K/mm3 0.00-0.03 H (test code = IG#) LYMPHOCYTE # (test code 0.35 K/mm3 0.6-3.8 L = LY#) MONOCYTE # (test code = 1.07 K/mm3 0.11-0.59 H MO#) EOSINOPHIL # (test code 0.01 K/mm3 0.0-0.4 N = EO#) BASOPHIL # (test code = 0.06 K/mm3 0.0-0.1 N BA#) NUCLEATED RBC # (test 0.15 K/mm3 0.0-0.05 H code = NRBC#) MANUAL DIFF REQUIRED MAN DIFF INDICATED CRITERIA (test code = MDIFF) DIFF/SCN WBC [id number] 07:01:00 Test Item Value Reference Range Interpretation Comments TOTAL CELLS COUNTED (test code = #CELLS >100 TCC) SEGMENTED NEUTROPHILS (test code = % 40-75 SEG) LYMPHOCYTE (test code = LYMPH) % 18.7-40.6 MORPHOLOGY COMMENT (test code = MOC) ON SCAN NORMAL RBCS PLATELET ESTIMATE (test code = ON SCAN ADEQUATE PLTEST) BASIC METABOLIC [id number] 06:50:00 Test Item Value Reference Range Interpretation Comments SODIUM (test code = 139.0 mmol/L 133-144 N NA) POTASSIUM (test code 3.4 mmol/L 3.5-5.1 L = K) CHLORIDE (test code 110 mmol/L 95-105 H = CL) CARBON DIOXIDE (test 17 mmol/L 21-32 L code = CO2) ANION GAP (test code 12.0 GAP calc 4.0-15.0 N = GAP) GLUCOSE (test code = 133 MG/DL 70-110 H GLU) BLOOD UREA NITROGEN 58 MG/DL 7-18 H (test code = BUN) CREATININE (test 1.35 MG/DL 0.55-1.30 H Results may be code = CREAT) depressed if patient is takingN-Acetylc yste ine (NAC) and Metamizole (Dipyrone). CALCIUM (test code = 7.5 MG/DL 8.5-10.1 L CA) INDEX HEMOLYSIS 1 NORMAL <10 MG 1 NORMAL (test code = Index/DL HEMINDEX) INDEX ICTERIC (test 2 TRACE 2-5 MG 1 NORMAL code = ICTINDEX) Index/DL INDEX LIPEMIA (test 1 NORMAL <50 MG 1 NORMAL code = LIPINDEX) Index/DL BASIC METABOLIC [id number] 06:42:00 Test Item Value Reference Range Interpretation Comments SODIUM (test code = NA) 139.0 mmol/L 133-144 N POTASSIUM (test code = K) 3.4 mmol/L 3.5-5.1 L CHLORIDE (test code = CL) 110 mmol/L 95-105 H CARBON DIOXIDE (test code mmol/L 21-32 = CO2) ANION GAP (test code = GAP calc 4.0-15.0 GAP) GLUCOSE (test code = GLU) MG/DL 70-110 BLOOD UREA NITROGEN (test MG/DL 7-18 code = BUN) CREATININE (test code = MG/DL 0.55-1.30 CREAT) CALCIUM (test code = CA) MG/DL 8.5-10.1 INDEX HEMOLYSIS (test 1 NORMAL <10 MG 1 NORMAL code = HEMINDEX) Index/DL INDEX ICTERIC (test code 2 TRACE 2-5 MG 1 NORMAL = ICTINDEX) Index/DL INDEX LIPEMIA (test code 1 NORMAL <50 MG 1 NORMAL = LIPINDEX) Index/DL LACTIC [id number] 04:16:00 Test Item Value Reference Range Interpretation Comments LACTIC ACID (test code = LACT) 1.6 mmol/L 0.4-2.0 N Specimen comments: SEPSIS WORKUPTHYROID STIMULATING [id number] 02:23:00 Test Item Value Reference Range Interpretation Comments THYROID STIMULATING HORMONE 1.440 mc IU/ML 0.340-4.820 N (test code = TSH) [id number] 02:23:00 Test Item Value Reference Range Interpretation Comments TROPONIN-I 0.304 NG/ML 0.000-0.045 HH Critical values after the (test code = first occurrenc e are excluded TROPI) fromcall docume ntation requirements fo r this analyte due to thepatie nt diagnosis or therapy prot ocols.An elevated tropon in value alone is not sufficie nt todiagnose a myocardial in farction. Rather, the pat ient'sclinical presentation (h istory, physical exam) and ECGshould be used in conj unction with troponin in the diagnostic evaluation of s uspected myocardial infa rction. Aserial samplin g protocol is recommended to facilitate theidentificati on of temporal changes in trop onin levelscharacter istic of [place]. PROCALCITONIN (PCT)2019-04-28 02:23:00 Test Item Value Reference Range Interpretation Comments PROCALCITONIN (PCT) 1.21 NG/ML 0.00-0.10 H PROCALCI TONIN (PCT) (test code = PROCAL) NORMAL RANGE (ADULT) <0.05 NG/ML-nor mal <0.50 NG/ML-low risk of severe sepsis a nd/or septic shock >2 .00 NG/ML-high risk of severe sepsis a nd/or septic shcock Concentrations of <0.5 ng/mL do not ex clude an infection.Local ized infections (wit hout systemic signs) or a systemicinfecti on in its initial sta ges (<6 hours) can be associatedwith such low concentrations. It is recommended to retestPCT withi n 6-24 hours if concen trations <2 NG/ML. CBC W/MANUAL [id number] 02:13:00 Test Item Value Reference Range Interpretation Comments WHITE BLOOD CELL 11.6 K/mm3 4.1-12.1 N (test code = WBC) RED BLOOD CELL (test 1.88 M/mm3 3.8-5.5 LL code = RBC) HEMOGLOBIN (test 5.6 G/DL 10.6-15.8 LL ON 04/27/19 AT code = HGB) 2135, B.LAB.GP CALLED TO DEM[facility] COOPER. The report was confirmed by re ad back protocols Y,N: Y. HEMATOCRIT (test 17.9 % 31.8-47.4 LL ON 04/27/19 AT code = HCT) 2135, B.LAB.GP CALLED TO [facility]. The report was confirmed by re ad back protocols Y,N: Y. MEAN CELL VOLUME 95.2 fL 80.1-101.1 N (test code = MCV) MEAN CELL HGB (test 29.8 pg 25.3-35.3 N code = MCH) MEAN CELL HGB 31.3 G/DL 32.7-35.1 L CONCETRATION (test code = MCHC) RED CELL 15.1 % 12.2-16.4 N DISTRIBUTION WIDTH (test code = RDW) RED CELL 50.7 fL 36.4-46.3 H DISTRIBUTION WIDTH (test code = RDW-SD) PLATELET COUNT (test 120 K/mm3 155-337 L code = PLT) MEAN PLATELET VOLUME 12.1 fL 6.8-11.2 H (test code = MPV) GRANULOCYTE % (test 76.1 % 37.8-82.6 N code = GR%) IMMATURE GRANULOCYTE 10.3 % 0.0-2.0 H % (test code = IG%) LYMPHOCYTE % (test 2.7 % 14.1-45.4 L code = LY%) MONOCYTE % (test 10.5 % 2.5-11.7 N code = MO%) EOSINOPHIL % (test 0.2 % 0.0-6.2 N code = EO%) BASOPHIL % (test 0.2 % 0.0-2.1 N code = BA%) NUCLEATED RBC % 1.7 /100WBC% 0.0-1.0 H (test code = NRBC%) GRANULOCYTE # (test 8.82 k/mm3 2.0-13.7 N code = GR#) IMMATURE GRANULOCYTE 1.19 K/mm3 0.00-0.03 H # (test code = IG#) LYMPHOCYTE # (test 0.31 K/mm3 0.6-3.8 L code = LY#) MONOCYTE # (test 1.21 K/mm3 0.11-0.59 H code = MO#) EOSINOPHIL # (test 0.02 K/mm3 0.0-0.4 N code = EO#) BASOPHIL # (test 0.02 K/mm3 0.0-0.1 N code = BA#) NUCLEATED RBC # 0.20 K/mm3 0.0-0.05 H (test code = NRBC#) MANUAL DIFF REQUIRED MAN DIFF CRITERIA (test code = MDIFF) INDICATED DIFF/SCN WBC [id number] 02:13:00 Test Item Value Reference Range Interpretation Comments TOTAL CELLS COUNTED (test 100 #CELLS >100 code = TCC) SEGMENTED NEUTROPHILS (test 79 % 40-75 H code = SEG) LYMPHOCYTE (test code = 2 % 18.7-40.6 L LYMPH) ATYPICAL LYMPH (test code = 1 % 0-0 H ALYMPH) MONOCYTE (test code = MON) 12 % 3.8-11.4 H EOSINOPHIL (test code = EOS) 1 % 0.0-4.1 N METAMYELOCYTE (test code = 2 % 0-2 N META) MYELOCYTE (test code = MYELO) 3 % 0-1 H NUCLEATED RED BLOOD CELL 3.00 #/100WBC 0-0.5 H (test code = NRBC) POLYCHROMASIA (test code = SLIGHT ON SCAN NONE POLC) ANISOCYTOSIS (test code = MOD ON SCAN NONE A ANISO) MICROCYTOSIS (test code = SLIGHT ON SCAN NONE MICR) MACROCYTOSIS (test code = SLIGHT ON SCAN NONE MACR) OVALOCYTES (test code = OVAL) FEW ON SCAN NONE ETHAN CELLS (test code = BUR) FEW ON SCAN NONE ACANTHOCYTES (test code = FEW ON SCAN NONE ACAN) PLATELET ESTIMATE (test code SL DECR ON SCAN ADEQUATE = PLTEST) LACTIC [id number] 02:07:00 Test Item Value Reference Range Interpretation Comments LACTIC ACID (test 2.9 mmol/L 0.4-2.0 HH Critical v alues after the code = LACT) first occurrenc e are excluded fromca ll documentation requirements fo r this analyte due to thepatient diagnosis or th erapy protocols. Specimen comments: SEPSIS WORKUPTHYROID STIMULATING [id number] 01:58:00 Test Item Value Reference Range Interpretation Comments THYROID STIMULATING HORMONE 1.440 mc IU/ML 0.340-4.820 N (test code = TSH) [id number] 01:58:00 Test Item Value Reference Range Interpretation Comments TROPONIN-I 0.304 NG/ML 0.000-0.045 HH Critical values after the (test code = first occurrenc e are excluded TROPI) fromcall docume ntation requirements fo r this analyte due to thepatie nt diagnosis or therapy prot ocols.An elevated tropon in value alone is not sufficie nt todiagnose a myocardial in farction. Rather, the pat ient'sclinical presentation (h istory, physical exam) and ECGshould be used in conj unction with troponin in the diagnostic evaluation of s uspected myocardial infa rction. Aserial samplin g protocol is recommended to facilitate theidentificati on of temporal changes in trop onin levelscharacter istic of [place]. PROCALCITONIN (PCT)2019-04-28 01:58:00 Test Item Value Reference Range Interpretation Comments PROCALCITONIN (PCT) (test code = NG/ML 0.00-0.10 PROCAL) THYROID STIMULATING [id number] 01:49:00 Test Item Value Reference Range Interpretation Comments THYROID STIMULATING HORMONE (test mc IU/ML 0.340-4.820 code = TSH) [id number] 01:49:00 Test Item Value Reference Range Interpretation Comments TROPONIN-I 0.304 NG/ML 0.000-0.045 HH Critical values after the (test code = first occurrenc e are excluded TROPI) fromcall docume ntation requirements fo r this analyte due to thepatie nt diagnosis or therapy prot ocols.An elevated tropon in value alone is not sufficie nt todiagnose a myocardial in farction. Rather, the pat ient'sclinical presentation (h istory, physical exam) and ECGshould be used in conj unction with troponin in the diagnostic evaluation of s uspected myocardial infa rction. Aserial samplin g protocol is recommended to facilitate theidentificati on of temporal changes in trop onin levelscharacter istic of [place]. PROCALCITONIN (PCT)2019-04-28 01:49:00 Test Item Value Reference Range Interpretation Comments PROCALCITONIN (PCT) (test code = NG/ML 0.00-0.10 PROCAL) - CT ABD PELVIS W/O [id number] 23:36:00 Patient Name: AMAURI CAPELLAN Unit No: [id number] EXAMS: CPT CODE: [id number] CT ABD PELVIS W/O CONT 74498 AFTER HOURS SERVICE ON: 04/27/2019 11:[address] Scan of the Abdomen and Pelvis Without Contrast Location Code M12 History: BACK PAIN Technique: Axial and reconstructed coronal scans were performed on a helical scanner pre oral and IV contrast. Study is limited secondary to lack of oral and IV contrast. One or more of the following dose reduction techniques were used: Automated exposure control, adj ustment of the mA and/or kV according to patient size, and/or utilization of iterative reconstruction technique. Findings: Large amount of ascites is present in the abdomen and pelvis so significant abdominal distention. The liver surface is nodular and cirrhotic appearing. Spleen is borderline enlarged measuring 13 cm. There are multiple gallstones. There are no peripancreatic inflammatory changes. Kidneys and adrenal glands are within normal limits. There is no hydronephrosis. There is no retroperitoneal adenopathy. Bladder, uterus and adnexa are within normal limits. Small bowel loops are fluid-filled. There is no evidence of small bowel obstruction or free air. There is wall thickening of the gastric body and antrum. The appendix is not visualized. There is a fluid containing umbilical herniameasuring 6.4 cm. IMPRESSION: Extensive ascites and a nodular cirrhotic appearing liver. Cholelithiasis. No bowel obstruction or free air. Extensive wall thickening of the stomach. Endoscopic correlation recommended. Fluid containing umbilical hernia. at 2336 Reported and signed by: Lizeth España M.D. CC: Oscar Mcleod MD Dictated Date/Time: 04/27/2019 (2336) Technologist: Joselin Sosa CTDI: 10.62 DLP: 1250.01 Trnscrpt: 04/27/2019 (2336) GreggMA50 [facility] [place] NAME: NEENA[address] PHYS: SIMAL. - Oscar Mcleod [place], [place] [address] : 1970 AGE: 48 SEX: F LOC: [id number] D PHONE #: [phone] EXAM DATE: 04/27/2019 STATUS: ADM IN FAX #: [phone] RAD #: D/C DT PAGE 1 Signed Report Patient Name: AMAURI CAPELLAN Unit No: [id number] EXAMS: CPT CODE: [id number] CT ABD PELVIS W/O CONT [id number] (Continued) Orig Print D/T: S: 04/27/2019 (2340) DILLON Solano NAME: AMAURI CAPELLAN [address] [place] [address] Blvd PHYS: EDI.Marie - Oscar Mcleod [place], [place] [address] : 1970 AGE: 48 SEX: F LOC: [id number] D PHONE #: [phone] EXAM DATE: 04/27/2019 STATUS: ADM IN FAX #: [phone] RAD #: D/C DT PAGE 2 Signed ReportLACTIC ACID 2019-04-27 23:20:00 Test Item Value Reference Range Interpretation Comments LACTIC ACID (test 6.2 mmol/L 0.4-2.0 HH ON AT 2318, code = LACT) B.LAB.AR CALLED TO KIMBERLY PORTER . The report was conf irmed by read back emery darrell Y,N:Y . Critica l values after the first occurrence are excluded. Specimen comments: SEPSIS WORKUPPT AND [id number] 22:26:00 Test Item Value Reference Interpretation Comments Range PT PATIENT (test 16.6 SECONDS 9.4-12.5 H code = PTP) INTERNATIONAL 1.46 INR 0.88-1.13 H NORMAL RATIO (test Unit --------- code = INR) ---------Therap eutic range for INR i s dependent upon the situation.2.0-3 .0 Prophylaxis / v enous thromboembolism , Treatment of DV T, Acute myocardial infa rction stroke preventi on, Systemic emboli sm prevention in fibrillation3.0 -4.5 AMI recurrence prev ention, Systemic emboli sm prevention in p rosthetic heart 3.0-5.4 A GA mortality reduc tion THROMBOPLASTIN TIME 21.3 SECONDS 24-37.7 L THERAPEU TIC RANGE FOR PARTIAL (test code UNFRACTIO NATED HEPARIN = = PTT) 50.5-83.6 SEC T his test is not recommen ded to monitor low molecularweight heparin or danaparoid. Order LMWH test COLLECTION THROUGH LINES THAT HAVE BEEN PREVIOUSLY FLUS HEDWITH HEPARIN SHOULD BE AVOIDED DUE TO POSSIBLE HEPARINCONTAMIN ATION [id number] 22:26:00 Test Item Value Reference Range Interpretation Comments FIBRINOGEN (test code = FIB) 232 mg/dL 192-485 N CBC W/MANUAL [id number] 21:37:00 Test Item Value Reference Range Interpretation Comments WHITE BLOOD CELL 11.6 K/mm3 4.1-12.1 N (test code = WBC) RED BLOOD CELL (test 1.88 M/mm3 3.8-5.5 LL code = RBC) HEMOGLOBIN (test 5.6 G/DL 10.6-15.8 LL ON 04/27/19 AT code = HGB) 2134, B.LAB.GP CALLED TO DEMIAN COOPER. The report was confirmed by re ad back protocols Y,N: Y. HEMATOCRIT (test 17.9 % 31.8-47.4 LL ON 04/27/19 AT code = HCT) 2134, B.LAB.GP CALLED TO DEMIAN CAMPBELL. The report was confirmed by re ad back protocols Y,N: Y. MEAN CELL VOLUME 95.2 fL 80.1-101.1 N (test code = MCV) MEAN CELL HGB (test 29.8 pg 25.3-35.3 N code = MCH) MEAN CELL HGB 31.3 G/DL 32.7-35.1 L CONCETRATION (test code = MCHC) RED CELL 15.1 % 12.2-16.4 N DISTRIBUTION WIDTH (test code = RDW) RED CELL 50.7 fL 36.4-46.3 H DISTRIBUTION WIDTH (test code = RDW-SD) PLATELET COUNT (test 120 K/mm3 155-337 L code = PLT) MEAN PLATELET VOLUME 12.1 fL 6.8-11.2 H (test code = MPV) GRANULOCYTE % (test 76.1 % 37.8-82.6 N code = GR%) IMMATURE GRANULOCYTE 10.3 % 0.0-2.0 H % (test code = IG%) LYMPHOCYTE % (test 2.7 % 14.1-45.4 L code = LY%) MONOCYTE % (test 10.5 % 2.5-11.7 N code = MO%) EOSINOPHIL % (test 0.2 % 0.0-6.2 N code = EO%) BASOPHIL % (test 0.2 % 0.0-2.1 N code = BA%) NUCLEATED RBC % 1.7 /100WBC% 0.0-1.0 H (test code = NRBC%) GRANULOCYTE # (test 8.82 k/mm3 2.0-13.7 N code = GR#) IMMATURE GRANULOCYTE 1.19 K/mm3 0.00-0.03 H # (test code = IG#) LYMPHOCYTE # (test 0.31 K/mm3 0.6-3.8 L code = LY#) MONOCYTE # (test 1.21 K/mm3 0.11-0.59 H code = MO#) EOSINOPHIL # (test 0.02 K/mm3 0.0-0.4 N code = EO#) BASOPHIL # (test 0.02 K/mm3 0.0-0.1 N code = BA#) NUCLEATED RBC # 0.20 K/mm3 0.0-0.05 H (test code = NRBC#) MANUAL DIFF REQUIRED MAN DIFF CRITERIA (test code = MDIFF) INDICATED DIFF/SCN WBC [id number] 21:37:00 Test Item Value Reference Range Interpretation Comments TOTAL CELLS COUNTED (test code = #CELLS >100 TCC) SEGMENTED NEUTROPHILS (test code = % 40-75 SEG) LYMPHOCYTE (test code = LYMPH) % 18.7-40.6 MORPHOLOGY COMMENT (test code = MOC) ON SCAN NORMAL RBCS PLATELET ESTIMATE (test code = ON SCAN ADEQUATE PLTEST) CBC W/MANUAL [id number] 21:37:00 Test Item Value Reference Range Interpretation Comments WHITE BLOOD CELL 11.6 K/mm3 4.1-12.1 N (test code = WBC) RED BLOOD CELL (test 1.88 M/mm3 3.8-5.5 LL code = RBC) HEMOGLOBIN (test 5.6 G/DL 10.6-15.8 LL ON 04/27/19 AT code = HGB) 2135, B.LAB.GP CALLED TO [facility] COOPER. The report was confirmed by re ad back protocols Y,N: Y. HEMATOCRIT (test 17.9 % 31.8-47.4 LL ON 04/27/19 AT code = HCT) 2135, B.LAB.GP CALLED TO [facility] CO[facility]. The report was confirmed by re ad back protocols Y,N: Y. MEAN CELL VOLUME 95.2 fL 80.1-101.1 N (test code = MCV) MEAN CELL HGB (test 29.8 pg 25.3-35.3 N code = MCH) MEAN CELL HGB 31.3 G/DL 32.7-35.1 L CONCETRATION (test code = MCHC) RED CELL 15.1 % 12.2-16.4 N DISTRIBUTION WIDTH (test code = RDW) RED CELL 50.7 fL 36.4-46.3 H DISTRIBUTION WIDTH (test code = RDW-SD) PLATELET COUNT (test 120 K/mm3 155-337 L code = PLT) MEAN PLATELET VOLUME 12.1 fL 6.8-11.2 H (test code = MPV) GRANULOCYTE % (test 76.1 % 37.8-82.6 N code = GR%) IMMATURE GRANULOCYTE 10.3 % 0.0-2.0 H % (test code = IG%) LYMPHOCYTE % (test 2.7 % 14.1-45.4 L code = LY%) MONOCYTE % (test 10.5 % 2.5-11.7 N code = MO%) EOSINOPHIL % (test 0.2 % 0.0-6.2 N code = EO%) BASOPHIL % (test 0.2 % 0.0-2.1 N code = BA%) NUCLEATED RBC % 1.7 /100WBC% 0.0-1.0 H (test code = NRBC%) GRANULOCYTE # (test 8.82 k/mm3 2.0-13.7 N code = GR#) IMMATURE GRANULOCYTE 1.19 K/mm3 0.00-0.03 H # (test code = IG#) LYMPHOCYTE # (test 0.31 K/mm3 0.6-3.8 L code = LY#) MONOCYTE # (test 1.21 K/mm3 0.11-0.59 H code = MO#) EOSINOPHIL # (test 0.02 K/mm3 0.0-0.4 N code = EO#) BASOPHIL # (test 0.02 K/mm3 0.0-0.1 N code = BA#) NUCLEATED RBC # 0.20 K/mm3 0.0-0.05 H (test code = NRBC#) MANUAL DIFF REQUIRED MAN DIFF CRITERIA (test code = MDIFF) INDICATED DIFF/SCN WBC [id number] 21:37:00 Test Item Value Reference Range Interpretation Comments TOTAL CELLS COUNTED (test code = #CELLS >100 TCC) SEGMENTED NEUTROPHILS (test code = % 40-75 SEG) LYMPHOCYTE (test code = LYMPH) % 18.7-40.6 MORPHOLOGY COMMENT (test code = MOC) ON SCAN NORMAL RBCS PLATELET ESTIMATE (test code = ON SCAN ADEQUATE PLTEST) CALCIUM [id number] 21:33:00 Test Item Value Reference Range Interpretation Comments CALCIUM IONIZED (test code = ELDON) 0.83 mmol/L 1.13-1.32 L - XR CHEST 1 [id number] 21:06:00 FAX: Oscar Mcleod MD [phone] [place]: E St: PRE Patient Name: AMAURI DOLAN Unit No: [id number] EXAMS: CPT CODE: [id number] XR CHEST 1 V 48588 - XR CHEST 1 V, 04/27/2019 8:26 PM Reason For Examination: cp Comparison: None available Location: R16 Findings LUNGS: No definite consolidation, question vascular congestion although exam findings limited by low lung volumes PLEURA: No pleural effusions CARDIOMEDIASTINAL SILHOUETTE Nonspecific prominence of the upper mediastinum is seen possibly reflecting aortic ectasiaIMPRESSION: No definite consolidation. Question vascular congestion, evaluation limited by low lung v olumes Nonspecific prominence of the upper mediastinum at 2106 Reported and signed by: Lorena Valderrama M.D. CC: Oscar Mcleod MD Dictated Date/Time: 04/27/2019 (2105)Technologist: James Hernandez Transcribed Date/Time: 04/27/2019 (2105) By: [email or web address] Orig Print D/T: S: 04/27/2019 (2108) DILLON Solano NAME: KIMBERLY DOLAN[address] PHYS: Oscar Min MD, [place] [address] : 1970 AGE: 48 SEX: F LOC: B.ERS PHONE #: [phone] EXAM DATE: 04/27/2019 STATUS: PRE ER FAX #: [phone] RAD NO: DC Dt: PAGE 1 Signed ReportCBC W/MANUAL [id number] 21:05:00 Test Item Value Reference Range Interpretation Comments WHITE BLOOD CELL 14.6 K/mm3 4.1-12.1 H (test code = WBC) RED BLOOD CELL (test 1.07 M/mm3 3.8-5.5 LL code = RBC) HEMOGLOBIN (test 3.2 G/DL 10.6-15.8 LL ON 04/27/19 AT code = HGB) 2028, B.LAB.AK CALLED TO [facility]. The report was confirmed b y read back protocols Y,N: Y. HEMATOCRIT (test 10.8 % 31.8-47.4 LL ON 04/27/19 AT code = HCT) 2029, B.LAB.AK CALLED TO [facility]. The report was confirmed by re ad back protocols Y,N: Y. MEAN CELL VOLUME 100.9 fL 80.1-101.1 N (test code = MCV) MEAN CELL HGB (test 29.9 pg 25.3-35.3 N code = MCH) MEAN CELL HGB 29.6 G/DL 32.7-35.1 L CONCETRATION (test code = MCHC) RED CELL 16.5 % 12.2-16.4 H DISTRIBUTION WIDTH (test code = RDW) RED CELL 52.8 fL 36.4-46.3 H DISTRIBUTION WIDTH (test code = RDW-SD) PLATELET COUNT (test 217 K/mm3 155-337 N code = PLT) MEAN PLATELET VOLUME 12.5 fL 6.8-11.2 H (test code = MPV) GRANULOCYTE % (test 71.3 % 37.8-82.6 N code = GR%) IMMATURE GRANULOCYTE 11.6 % 0.0-2.0 H % (test code = IG%) LYMPHOCYTE % (test 4.2 % 14.1-45.4 L code = LY%) MONOCYTE % (test 12.6 % 2.5-11.7 H code = MO%) EOSINOPHIL % (test 0.3 % 0.0-6.2 N code = EO%) BASOPHIL % (test 0.0 % 0.0-2.1 N code = BA%) NUCLEATED RBC % 1.6 /100WBC% 0.0-1.0 H (test code = NRBC%) GRANULOCYTE # (test 10.44 k/mm3 2.0-13.7 N code = GR#) IMMATURE GRANULOCYTE 1.69 K/mm3 0.00-0.03 H # (test code = IG#) LYMPHOCYTE # (test 0.61 K/mm3 0.6-3.8 N code = LY#) MONOCYTE # (test 1.85 K/mm3 0.11-0.59 H code = MO#) EOSINOPHIL # (test 0.04 K/mm3 0.0-0.4 N code = EO#) BASOPHIL # (test 0.00 K/mm3 0.0-0.1 N code = BA#) NUCLEATED RBC # 0.24 K/mm3 0.0-0.05 H (test code = NRBC#) MANUAL DIFF REQUIRED MAN DIFF CRITERIA (test code = MDIFF) INDICATED DIFF/SCN PATHOLOGIST'S [id number] 21:05:00 Test Item Value Reference Range Interpretation Comments PATHOLOGIST'S FINDINGS (test code = EXTERNAL COMMENTS PATH) WBC [id number] 21:05:00 Test Item Value Reference Range Interpretation Comments TOTAL CELLS COUNTED (test code 100 #CELLS >100 = TCC) SEGMENTED NEUTROPHILS (test 82 % 40-75 H code = SEG) LYMPHOCYTE (test code = LYMPH) 9 % 18.7-40.6 L ATYPICAL LYMPH (test code = 2 % 0-0 H ALYMPH) MONOCYTE (test code = MON) 2 % 3.8-11.4 L MYELOCYTE (test code = MYELO) 4 % 0-1 H PROMYELOCYTE (test code = 1 % 0-0 H PROM) NUCLEATED RED BLOOD CELL (test 1.00 #/100WBC 0-0.5 H code = NRBC) POLYCHROMASIA (test code = SLIGHT ON SCAN NONE POLC) ANISOCYTOSIS (test code = MOD ON SCAN NONE A ANISO) ETHAN CELLS (test code = BUR) FEW ON SCAN NONE PLATELET ESTIMATE (test code = ADEQ ON SCAN ADEQUATE PLTEST) [id number] 20:50:00 Test Item Value Reference Range Interpretation Comments TROPONIN-I 0.064 NG/ML 0.000-0.045 HH ON 04/27/19 AT 2049, (test code = B.LAB.SRS2 CALL ED TO [facility]ORD[facility]) [place]. The repo rt was confirmed by re ad back protocols Y,N: Y. Critical values after th e first occurrence are excluded.An elevated tropon in value alone is not sufficie nt todiagnose a myocardial in farction. Rather, the pat ient'sclinical presentation (h istory, physical exam) and ECGshould be used in conj unction with troponin in the diagnostic evaluation of s uspected myocardial infa rction. Aserial samplin g protocol is recommended to facilitate theidentificati on of temporal changes in trop onin levelscharacter istic of GA. - XR ABDOMEN 1 [id number] 20:44:00 FAX: Oscar Mcleod MD [phone] [place]: E St: PRE Patient Name: AMAURI DOLAN Unit No: [id number] EXAMS: CPT CODE: [id number] XR ABDOMEN 1 V 60829 - XR ABDOMEN 1 V, 04/27/2019 7:44 PM Reason For Examination: abd pain Comparison: None available Location: R16: Findings: Appearance of the abdomen is nearly nondiagnostic secondary to patient's habitus. No definite prominent small bowel dilation is visualized. Impression: Appearance of the abdomen is nearly nondiagnostic secondary to patient's habitus. No definite prominent small bowel dilation is visualized. at 2043 Reported and signed by: Lorena Valderrama M.D. CC: Oscar Mcleod MD Dictated Date/Time: 04/27/2019 (2043)Technologist: James Hernandez Transcribed Date/Time: 04/27/2019 (2043) By: [email or web address] Orig Print D/T: S: 04/27/2019 (2046) NEVILLE Xiomara NAME: KEL[address] PHYS: EDI. - Oscar Mcleod MD, [place] [address] : 1970 AGE: 48 SEX: F LOC: [facility] PHONE #: [phone] EXAM DATE: 04/27/2019 STATUS: PRE ER FAX #: [phone] RAD NO: DC Dt: PAGE 1 Signed [id number] 20:36:00 Test Item Value Reference Range Interpretation Comments MODALITY (test code = MOD) NC COMMENT DESCRIPTION VENOUS BLOOD GAS [id number] 20:36:00 Test Item Value Reference Range Interpretation Comments VENOUS BLOOD GAS PH (test code 7.16 pH units 7.32-7.42 L = PHV) VENOUS BLOOD GAS [id number] 20:36:00 Test Item Value Reference Range Interpretation Comments VENOUS BLOOD GAS PCO2 (test code = 23 mmHg 41-51 L PCO2V) VENOUS BLOOD GAS [id number] 20:36:00 Test Item Value Reference Range Interpretation Comments VENOUS BLOOD GAS PO2 (test code = 23 mmHg 25-40 L PO2V) VBG [id number] 20:36:00 Test Item Value Reference Range Interpretation Comments VBG HCO3 (test code = HCO3V) 8.3 mmol/L 24-28 L VENOUS BLOOD GAS [id number] 20:36:00 Test Item Value Reference Range Interpretation Comments VENOUS BLOOD GAS SITE (test code Venous Site DESCRIPTION = SITEV) COMPREHENSIVE METABOLIC [id number] 20:32:00 Test Item Value Reference Range Interpretation Comments SODIUM (test code = 136.0 mmol/L 133-144 N NA) POTASSIUM (test code 4.5 mmol/L 3.5-5.1 N = K) CHLORIDE (test code 108 mmol/L 95-105 H = CL) CARBON DIOXIDE (test 8 mmol/L 21-32 LL ON 04/06 10/21 AT 2031, code = CO2) B.LAB.SRS2 CALL ED TO [facility]. Th e report was conf irmed by read back protocols Y,N: Y. ANION GAP (test code 20.0 GAP calc 4.0-15.0 H = GAP) GLUCOSE (test code = 94 MG/DL 70-110 N GLU) BLOOD UREA NITROGEN 57 MG/DL 7-18 H (test code = BUN) GLOMERULAR 32 estGFR >60 L The estimated FILTRATION RATE glomerular (test code = GFR) filtration rate is computed usingpatient ra ce, age, sex, and s july creatinine. If any of theneeded da ta elements are mi ssing the Laboratory can notcompute an estimation of t he glomerular filtration rate .The GFR value units = ml/min/1.73 met er squared. EstimatedGFR va lues above 60 should be interpreted as >60, not anexact number.--- DRUG DOSAGE ALERT -- - Drug dosage adjustments uti lize different calculationpara meter s. CREATININE (test 1.70 MG/DL 0.55-1.30 H Results may be code = CREAT) depressed if p atient is takingN-Acetylc ystei ne (NAC) and Metamizole (Dipyrone). TOTAL PROTEIN (test 5.2 G/DL 6.4-8.2 L code = PROT) ALBUMIN (test code = 1.5 G/DL 3.4-5.0 L ALB) ALBUMIN/GLOBULIN 0.4 RATIO 1.2-2.2 L RATIO (test code = A/G) CALCIUM (test code = 7.0 MG/DL 8.5-10.1 L CA) BILIRUBIN TOTAL 0.61 MG/DL 0.00-1.00 N (test code = BILT) BILIRUBIN DIRECT 0.37 MG/DL 0.00-0.30 H (test code = BILD) BILIRUBIN INDIRECT 0.24 MG/DL 0.2-1.3 N (test code = BILIND) SGOT/AST (test code 46 Unit/L 15-37 H = AST) SGPT/ALT (test code 24 Unit/L 12-78 N = ALT) ALKALINE PHOSPHATASE 138 Unit/L 45-117 H TOTAL (test code = ALKP) INDEX HEMOLYSIS 1 NORMAL <10 1 NORMAL (test code = MG Index/DL HEMINDEX) INDEX ICTERIC (test 1 NORMAL <2 MG 1 NORMAL code = ICTINDEX) Index/DL INDEX LIPEMIA (test 1 NORMAL <50 1 NORMAL code = LIPINDEX) MG Index/DL CBC W/MANUAL [id number] 20:30:00 Test Item Value Reference Range Interpretation Comments WHITE BLOOD CELL 14.6 K/mm3 4.1-12.1 H (test code = WBC) RED BLOOD CELL (test 1.07 M/mm3 3.8-5.5 LL code = RBC) HEMOGLOBIN (test 3.2 G/DL 10.6-15.8 LL ON 04/27/19 AT code = HGB) 2028, B.LAB.AK CALLED TO [facility]. The report was confirmed b y read back protocols Y,N: Y. HEMATOCRIT (test 10.8 % 31.8-47.4 LL ON 04/27/19 AT code = HCT) 2029, B.LAB.AK CALLED TO [facility]. The report was confirmed by re ad back protocols Y,N: Y. MEAN CELL VOLUME 100.9 fL 80.1-101.1 N (test code = MCV) MEAN CELL HGB (test 29.9 pg 25.3-35.3 N code = MCH) MEAN CELL HGB 29.6 G/DL 32.7-35.1 L CONCETRATION (test code = MCHC) RED CELL 16.5 % 12.2-16.4 H DISTRIBUTION WIDTH (test code = RDW) RED CELL 52.8 fL 36.4-46.3 H DISTRIBUTION WIDTH (test code = RDW-SD) PLATELET COUNT (test 217 K/mm3 155-337 N code = PLT) MEAN PLATELET VOLUME 12.5 fL 6.8-11.2 H (test code = MPV) GRANULOCYTE % (test 71.3 % 37.8-82.6 N code = GR%) IMMATURE GRANULOCYTE 11.6 % 0.0-2.0 H % (test code = IG%) LYMPHOCYTE % (test 4.2 % 14.1-45.4 L code = LY%) MONOCYTE % (test 12.6 % 2.5-11.7 H code = MO%) EOSINOPHIL % (test 0.3 % 0.0-6.2 N code = EO%) BASOPHIL % (test 0.0 % 0.0-2.1 N code = BA%) NUCLEATED RBC % 1.6 /100WBC% 0.0-1.0 H (test code = NRBC%) GRANULOCYTE # (test 10.44 k/mm3 2.0-13.7 N code = GR#) IMMATURE GRANULOCYTE 1.69 K/mm3 0.00-0.03 H # (test code = IG#) LYMPHOCYTE # (test 0.61 K/mm3 0.6-3.8 N code = LY#) MONOCYTE # (test 1.85 K/mm3 0.11-0.59 H code = MO#) EOSINOPHIL # (test 0.04 K/mm3 0.0-0.4 N code = EO#) BASOPHIL # (test 0.00 K/mm3 0.0-0.1 N code = BA#) NUCLEATED RBC # 0.24 K/mm3 0.0-0.05 H (test code = NRBC#) MANUAL DIFF REQUIRED MAN DIFF CRITERIA (test code = MDIFF) INDICATED DIFF/SCN PATHOLOGIST'S [id number] 20:30:00 Test Item Value Reference Range Interpretation Comments PATHOLOGIST'S FINDINGS (test code = EXTERNAL COMMENTS PATH) WBC [id number] 20:30:00 Test Item Value Reference Range Interpretation Comments TOTAL CELLS COUNTED (test code = #CELLS >100 TCC) SEGMENTED NEUTROPHILS (test code = % 40-75 SEG) LYMPHOCYTE (test code = LYMPH) % 18.7-40.6 MORPHOLOGY COMMENT (test code = MOC) ON SCAN NORMAL RBCS PLATELET ESTIMATE (test code = ON SCAN ADEQUATE PLTEST) CBC W/MANUAL [id number] 20:30:00 Test Item Value Reference Range Interpretation Comments WHITE BLOOD CELL 14.6 K/mm3 4.1-12.1 H (test code = WBC) RED BLOOD CELL (test 1.07 M/mm3 3.8-5.5 LL code = RBC) HEMOGLOBIN (test 3.2 G/DL 10.6-15.8 LL ON 04/27/19 AT code = HGB) 2028, B.LAB.AK CALLED TO [facility] ER. The report was confirmed b y read back protocols Y,N: Y. HEMATOCRIT (test 10.8 % 31.8-47.4 LL ON 04/27/19 AT code = HCT) B.LAB.AK CALLED TO [facility]. The report was confirmed by re ad back protocols Y,N: Y. MEAN CELL VOLUME 100.9 fL 80.1-101.1 N (test code = MCV) MEAN CELL HGB (test 29.9 pg 25.3-35.3 N code = MCH) MEAN CELL HGB 29.6 G/DL 32.7-35.1 L CONCETRATION (test code = MCHC) RED CELL 16.5 % 12.2-16.4 H DISTRIBUTION WIDTH (test code = RDW) RED CELL 52.8 fL 36.4-46.3 H DISTRIBUTION WIDTH (test code = RDW-SD) PLATELET COUNT (test 217 K/mm3 155-337 N code = PLT) MEAN PLATELET VOLUME 12.5 fL 6.8-11.2 H (test code = MPV) GRANULOCYTE % (test 71.3 % 37.8-82.6 N code = GR%) IMMATURE GRANULOCYTE 11.6 % 0.0-2.0 H % (test code = IG%) LYMPHOCYTE % (test 4.2 % 14.1-45.4 L code = LY%) MONOCYTE % (test 12.6 % 2.5-11.7 H code = MO%) EOSINOPHIL % (test 0.3 % 0.0-6.2 N code = EO%) BASOPHIL % (test 0.0 % 0.0-2.1 N code = BA%) NUCLEATED RBC % 1.6 /100WBC% 0.0-1.0 H (test code = NRBC%) GRANULOCYTE # (test 10.44 k/mm3 2.0-13.7 N code = GR#) IMMATURE GRANULOCYTE 1.69 K/mm3 0.00-0.03 H # (test code = IG#) LYMPHOCYTE # (test 0.61 K/mm3 0.6-3.8 N code = LY#) MONOCYTE # (test 1.85 K/mm3 0.11-0.59 H code = MO#) EOSINOPHIL # (test 0.04 K/mm3 0.0-0.4 N code = EO#) BASOPHIL # (test 0.00 K/mm3 0.0-0.1 N code = BA#) NUCLEATED RBC # 0.24 K/mm3 0.0-0.05 H (test code = NRBC#) MANUAL DIFF REQUIRED MAN DIFF CRITERIA (test code = MDIFF) INDICATED DIFF/SCN WBC [id number] 20:30:00 Test Item Value Reference Range Interpretation Comments TOTAL CELLS COUNTED (test code = #CELLS >100 TCC) SEGMENTED NEUTROPHILS (test code = % 40-75 SEG) LYMPHOCYTE (test code = LYMPH) % 18.7-40.6 MORPHOLOGY COMMENT (test code = MOC) ON SCAN NORMAL RBCS PLATELET ESTIMATE (test code = ON SCAN ADEQUATE PLTEST) PT AND [id number] 20:25:00 Test Item Value Reference Interpretation Comments Range PT PATIENT (test 21.3 SECONDS 9.4-12.5 H code = PTP) INTERNATIONAL 1.87 INR 0.88-1.13 H NORMAL RATIO (test Unit --------- code = INR) ---------Therap eutic range for INR i s dependent upon the situation.2.0-3 .0 Prophylaxis / v enous thromboembolism , Treatment of DV T, Acute myocardial infa rction stroke preventi on, Systemic emboli sm prevention in fibrillation3.0 -4.5 AMI recurrence prev ention, Systemic emboli sm prevention in p rosthetic heart 3.0-5.4 A GA mortality reduc tion THROMBOPLASTIN TIME 30.8 SECONDS 24-37.7 N THERAPEU TIC RANGE FOR PARTIAL (test code UNFRACTIO NATED HEPARIN = = PTT) 50.5-83.6 SEC T his test is not recommen ded to monitor low molecularweight heparin or danaparoid. Order LMWH test COLLECTION THROUGH LINES THAT HAVE BEEN PREVIOUSLY FLUS HEDWITH HEPARIN SHOULD BE AVOIDED DUE TO POSSIBLE HEPARINCONTAMIN ATION Lactic Acid [id number] 16:54:00 Test Item Value Reference Range Interpretation Comments Lactic Acid Level (test code = 2524-7) 7.3 0.5-2.0 HH Critical Result S_LAC:7.3 Called to and read back by: JOHAN BARTLETT at: 04/27/2019 16:57:46 by:[facility] BeevilleAlcohols 2019-04-27 16:52:00 Test Item Value Reference Range Interpretation Comments Alcohols (test code = 5643-2) < 5 0-5 [facility] FallsProthrombin [id number] 16:46:00 Test Item Value Reference Range Interpretation Comments Prothrombin Time (test code = 5964-2) 20.0 10.0-12.9 H [facility] FallsINR International Normalized [id number] 16:46:00 Test Item Value Reference Range Interpretation Comments INR International Normalized Ratio 1.8 0.91-1.15 H (test code = 6301-6) THE INR IS TO BE USED ONLY FOR MONITORING ORAL ANTICOAGULANTTHERAPY. INDICATION INR VALUE 1. Prophylaxis of venous thrombosis 2.0-3.0 (high-risk surgery) Treatment of venous thrombosis Treatment of PEPrevention of systemic embolism Tissue heart valves AMI (to prevent systemic embolism) Valvular heart disease Atrial fibrillation Bileaflet mechanical valve in aortic position 2. Mechanical prosthetic heart valves (high risk) 2.5-3.5 Thrombosis and Antiphospholipid syndrome Prevention of recurrent GA Sixth ACCP Consensus Conference on Antithrombotic Therapy,Chest 2001; 119:Supplement 8-21.[facility] FallsActivated Partial Thromboplast [id number] 16:46:00 Test Item Value Reference Range Interpretation Comments Activated Partial Thromboplast Time 30.5 25.1-36.5 (test code = 3173-2) [facility] [id number] 16:36:00 Test Item Value Reference Range Interpretation Comments Segmented Neutrophils (test code = 85 42-75 H 47457-5) [facility] [id number] 16:36:00 Test Item Value Reference Range Interpretation Comments Lymphocytes (test code = 87295-6) 5 20-51 L [facility] FallsMonocytes2019-09-23 16:36:00 Test Item Value Reference Range Interpretation Comments Monocytes (test code = 26684-5) 6 2-9 [facility] [id number] 16:36:00 Test Item Value Reference Range Interpretation Comments Eosinophils (test code = 27771-3) 4 1-4 [facility] FallsNucleated Red Blood [id number] 16:36:00 Test Item Value Reference Range Interpretation Comments Nucleated Red Blood Cells (test code = 3 >0 H 51038-5) [facility] FallsPlatelet [id number] 16:36:00 Test Item Value Reference Range Interpretation Comments Platelet Estimate (test code = ADEQUATE ADEQUATE 83303-7) [facility] FallsPlatelet [id number] 16:36:00 Test Item Value Reference Range Interpretation Comments Platelet Morphology LARGE PLATELETS SEEN NORMAL (test code = 59651-0) [facility] FallsNormal RBC [id number] 16:36:00 Test Item Value Reference Range Interpretation Comments Normal RBC Morphology (test SEE MORPHOLOGY NORMAL code = 04394-1) [facility] FallsF[id number] 16:36:00 Test Item Value Reference Range Interpretation Comments Hypochromasia (test code = 728-6) 1+ NONE A [facility] FallsBlood Urea [id number] 16:13:00 Test Item Value Reference Range Interpretation Comments Blood Urea Nitrogen (test code = 66 8-26 H 3094-0) [facility] FallsCreatinine2019-09-23 16:13:00 Test Item Value Reference Range Interpretation Comments Creatinine (test code = 2160-0) 1.6 0.44-1.00 H [facility] FallsEGFR [id number] 16:13:00 Test Item Value Reference Range Interpretation Comments EGFR Note (test code = 37665-1) 45.6 63.8-143.2 L eGFR (Estimated Glomerular Filtration Rate) eGFR calculation value obtained using the Baptist HospitalQuadratic (Q) equation. The reportable reference range isrecommended to be greater than 60 ml/min/1.73m. This is anestimation of the patient's GFR and clinical correlation isrecommended. This eGFR calculation does not account for race. This resultmay differ from other equations available. [facility] FallsAlbumin2019-09-23 16:13:00 Test Item Value Reference Range Interpretation Comments Albumin (test code = 1751-7) 1.5 3.5-5.0 L [facility] FallsTotal [id number] 16:13:00 Test Item Value Reference Range Interpretation Comments Total Bilirubin (test code = 1975-2) 0.8 0.2-1.2 [facility] FallsAlkaline [id number] 16:13:00 Test Item Value Reference Range Interpretation Comments Alkaline Phosphatase (test code = 129 32-91 H 6768-6) [facility] FallsTotal [id number] 16:13:00 Test Item Value Reference Range Interpretation Comments Total Protein (test code = 2885-2) 5.1 6.5-8.1 L [facility] FallsAlanine Aminotransferase (ALT/SGPT)2019-04-27 16:13:00 Test Item Value Reference Range Interpretation Comments Alanine Aminotransferase (ALT/SGPT) 21 7-55 (test code = 1742-6) [facility] FallsAspartate Amino Transf (AST/SGOT)2019-04-27 16:13:00 Test Item Value Reference Range Interpretation Comments Aspartate Amino Transf (AST/SGOT) (test 53 15-41 H code = 1920-8) [facility] FallsGlobulin2019-09-23 16:13:00 Test Item Value Reference Range Interpretation Comments Globulin (test code = 21924-0) 3.6 2.3-3.5 H [facility] FallsAlbumin/Globulin [id number] 16:13:00 Test Item Value Reference Range Interpretation Comments Albumin/Globulin Ratio (test code = 0.4 1.2-2.2 L 1759-0) [facility] FallsAmylase [id number] 16:13:00 Test Item Value Reference Range Interpretation Comments Amylase Level (test code = 1798-8) 77 36-128 [facility]Lip[facility]2019-09-23 16:13:00 Test Item Value Reference Range Interpretation Comments Lipase (test code = 3040-3) 62 22-51 H [facility] [place]White Blood [id number] 16:06:00 Test Item Value Reference Range Interpretation Comments White Blood Count (test code = 6690-2) 10.1 4.1-12.9 [facility] [place] [place] Blood [id number] 16:06:00 Test Item Value Reference Range Interpretation Comments Red Blood Count (test code = 789-8) 0.85 3.64-5.20 L [facility] FallsHemoglobin2019-09-23 16:06:00 Test Item Value Reference Range Interpretation Comments Hemoglobin (test code = 718-7) 2.7 10.6-15.6 LL ALERT (CRITICAL) VALUE -CALLED RESULTS TO AND VERBAL READ BACK FROMANICETO GANDARA @ [id number] 04/27/19 [facility]emat[facility]2019-09-23 16:06:00 Test Item Value Reference Range Interpretation Comments Hematocrit (test code = 38057-2) 8.2 32.0-45.9 L [facility] Corpuscular [id number] 16:06:00 Test Item Value Reference Range Interpretation Comments Mean Corpuscular Volume (test code = 96.6 74.6-98.2 07752-3) [facility] Corpuscular [id number] 16:06:00 Test Item Value Reference Range Interpretation Comments Mean Corpuscular Hemoglobin (test code 31.5 24.3-33.8 = 28513-8) [facility] Corpuscular Hgb Concent [id number] 16:06:00 Test Item Value Reference Range Interpretation Comments Mean Corpuscular Hgb Concent Diff (test 32.6 32.0-36.0 code = 98450-0) [facility] [place] Cell Distribution [id number] 16:06:00 Test Item Value Reference Range Interpretation Comments Red Cell Distribution Width (test code 16.9 11.4-16.3 H = 53500-0) [facility] FallsPlatelet Misup9232-03-76 16:06:00 Test Item Value Reference Range Interpretation Comments Platelet Count (test code = 777-3) 197 168-441 [facility] Platelet Niubuy4676-78-96 16:06:00 Test Item Value Reference Range Interpretation Comments Mean Platelet Volume (test code = 10.3 6.8-10.2 H 89652-4) [facility] FallsGranulocytes (%)2019-04-27 16:06:00 Test Item Value Reference Range Interpretation Comments Granulocytes (%) (test code = 65300-9) 74.3 39.8-78.1 [facility] FallsLymphocytes %2019-04-27 16:06:00 Test Item Value Reference Range Interpretation Comments Lymphocytes % (test code = 736-9) 5.3 14.1-47.6 L [facility] HospitalMonocytes %2019-04-27 16:06:00 Test Item Value Reference Range Interpretation Comments Monocytes % (test code = 5905-5) 18.6 3.8-11.6 H [facility] HospitalEosinophils %2019-04-27 16:06:00 Test Item Value Reference Range Interpretation Comments Eosinophils % (test code = 713-8) 0.6 0.6-7.3 [facility] FallsBasophils %2019-04-27 16:06:00 Test Item Value Reference Range Interpretation Comments Basophils % (test code = 08650-8) 1.2 0.0-2.0 [facility] FallsGranulocytes #2019-04-27 16:06:00 Test Item Value Reference Range Interpretation Comments Granulocytes # (test code = 65934-7) 7.5 1.6-10.1 [facility] FallsLymphocytes #2019-04-27 16:06:00 Test Item Value Reference Range Interpretation Comments Lymphocytes # (test code = 82722-8) 0.5 0.6-6.1 L [facility] FallsMonocytes #2019-04-27 16:06:00 Test Item Value Reference Range Interpretation Comments Monocytes # (test code = 742-7) 1.9 0.2-1.5 H [facility] HospitalEosinophils #2019-04-27 16:06:00 Test Item Value Reference Range Interpretation Comments Eosinophils # (test code = 711-2) 0.1 0.0-0.9 [facility] FallsBasophils #2019-04-27 16:06:00 Test Item Value Reference Range Interpretation Comments Basophils # (test code = 77921-6) 0.1 0.0-0.2 [facility] FallsManual Fmiystfcdxdu3281-25-65 16:06:00 Test Item Value Reference Range Interpretation Comments Manual Differential (test code = Manual YES Differential) [facility] Sgmpt0442-33-58 16:05:00 Test Item Value Reference Range Interpretation Comments Sodium Level (test code = 2951-2) 131 135-144 L [facility] FallsPotassium Blqcc9391-26-74 16:05:00 Test Item Value Reference Range Interpretation Comments Potassium Level (test code = 2823-3) 4.2 3.5-5.1 [facility] FallsChloride Znneh4695-48-62 16:05:00 Test Item Value Reference Range Interpretation Comments Chloride Level (test code = 2075-0) 105 101-111 [facility] FallsCarbon Dioxide Wofum2587-70-74 16:05:00 Test Item Value Reference Range Interpretation Comments Carbon Dioxide Level (test code = 14 22-32 L 8-9) [facility] FallsAnion Emv3311-01-85 16:05:00 Test Item Value Reference Range Interpretation Comments Anion Gap (test code = 26906-4) 16.2 10-20 [facility] FallsGlucose Vkysy0451-82-29 16:05:00 Test Item Value Reference Range Interpretation Comments Glucose Level (test code = 2345-7) 119 65-99 H Prediabetes 100 to 125 mg/dlDiabetes 126 mg/dl or higher Prediabetes refers to individuals with plasma glucose levelsintermediate between those considered normal and thoseconsidered diabetic and is also referred to as impairedglucose tolerance (IGT) or impaired fasting glucose (IFG). [facility] FallsCalcium Yqybe3204-02-46 16:05:00 Test Item Value Reference Range Interpretation Comments Calcium Level (test code = 91130-6) 7.2 8.9-10.3 L [facility] FallsBlood Weeevde9774-72-51 14:23:00 Test Item Value Reference Range Interpretation Comments Blood Culture (test NO GROWTH AT 5 DAYS. code = 600-7) [facility]ood Dkyudam5322-46-17 14:23:00 Test Item Value Reference Range Interpretation Comments Blood Culture (test NO GROWTH AT 5 DAYS. code = 600-7) [facility] FallsTumor Marker Alpha Vawbaqflaur0940-28-70 08:25:00 Test Item Value Reference Range Interpretation Comments Tumor Marker Alpha Fetoprotein (test 3.1 0.0-8.3 code = 79439-5) [facility] Electrochemiluminescence Immunoassay(ECLIA) Values obtained with different assay methods or kits cannotbe used interchangeably. Results cannot be interpreted asabsolute evidence of the presence or absence of malignantdisease. This test is not interpretable in females.Performed at: [facility] Lab[address] [id number] Director: Dagoberto Rodriguez MD, Phone: [phone]. David's [facility] Medical Centerellavaous Test Cyepoyx5911-69-82 14:03:00 Test Item Value Reference Range Interpretation Comments Miscellaneous Test Comment (test code = YES YES Miscellaneous Test Comment) [facility] FallsErythrocyte Sedimentation Pncg0830-14-98 14:03:00 Test Item Value Reference Range Interpretation Comments Erythrocyte Sedimentation Rate (test 117 0-20 H code = 4537-7) [facility] Centerellaneous Test Wiowkgv4641-32-11 14:03:00 Test Item Value Reference Range Interpretation Comments Miscellaneous Test Comment (test code = YES YES Miscellaneous Test Comment) [facility] FallsErythrocyte Sedimentation Egrd4687-64-12 14:03:00 Test Item Value Reference Range Interpretation Comments Erythrocyte Sedimentation Rate (test 117 0-20 H code = 4537-7) [facility] Bowlvex3067-55-97 05:49:00 Test Item Value Reference Range Interpretation Comments Blood Culture (test NO GROWTH AT 5 DAYS. code = 600-7) [facility] Sqfkhxm1285-99-60 05:49:00 Test Item Value Reference Range Interpretation Comments Blood Culture (test NO GROWTH AT 5 DAYS. code = 600-7) [facility] Nruwtaj0055-26-95 05:49:00 Test Item Value Reference Range Interpretation Comments Blood Culture (test NO GROWTH AT 5 DAYS. code = 600-7) [facility]odium Yttqh7041-22-29 05:16:00 Test Item Value Reference Range Interpretation Comments Sodium Level (test code = 2951-2) 129 135-144 L [facility] FallsPotassium Bhfjl0975-08-51 05:16:00 Test Item Value Reference Range Interpretation Comments Potassium Level (test code = 2823-3) 3.1 3.5-5.1 L [facility] FallsChloride Rlvfk9315-41-09 05:16:00 Test Item Value Reference Range Interpretation Comments Chloride Level (test code = 2075-0) 107 101-111 [facility] FallsCarbon Dioxide Gjgke3099-86-86 05:16:00 Test Item Value Reference Range Interpretation Comments Carbon Dioxide Level (test code = 15 22-32 L 2027-9) [facility] FallsAnion Cft2421-51-80 05:16:00 Test Item Value Reference Range Interpretation Comments Anion Gap (test code = 65543-2) 10.1 10-20 [facility] FallsGlucose Ifnfs1300-77-73 05:16:00 Test Item Value Reference Range Interpretation Comments Glucose Level (test code = 2345-7) 117 65-99 H Prediabetes 100 to 125 mg/dlDiabetes 126mg/dl or higher Prediabetes refers to individuals with plasma glucose levelsintermediate between those considered normal and thoseconsidered diabetic and is also referred to as impairedglucose tolerance (IGT) or impaired fasting glucose (IFG). [facility] FallsBlood Urea Rlogzprr6099-31-84 05:16:00 Test Item Value Reference Range Interpretation Comments Blood Urea Nitrogen (test code = 15 03-30 3094-0) [facility] FallsCreatinine2019-09-12 05:16:00 Test Item Value Reference Range Interpretation Comments Creatinine (test code = 2160-0) 1.0 0.44-1.00 [facility] FallsEGFR Rgvm7974-55-37 05:16:00 Test Item Value Reference Range Interpretation Comments EGFR Note (test code = 93994-5) 90.1 63.8-143.2 eGFR (Estimated Glomerular Filtration Rate) eGFR calculation value obtained using the Baptist HospitalQuadratic (Q) equation. The reportable reference range isrecommended to be greater than 60 ml/min/1.73m. This is anestimation of the patient's GFR and clinical correlation isrecommended. This eGFR calculation does not account for race. This resultmay differ from other equations available. [facility] FallsCalcium Ekhxf9732-33-81 05:16:00 Test Item Value Reference Range Interpretation Comments Calcium Level (test code = 73751-9) 7.6 8.9-10.3 L [facility] FallsWhite Blood Wdnaq8405-19-32 05:05:00 Test Item Value Reference Range Interpretation Comments White Blood Count (test code = 6690-2) 8.1 4.1-12.9 [facility] FallsRed Blood Efagj1647-11-09 05:05:00 Test Item Value Reference Range Interpretation Comments Red Blood Count (test code = 789-8) 2.54 3.64-5.20 L [facility] FallsHemoglobin2019-09-12 05:05:00 Test Item Value Reference Range Interpretation Comments Hemoglobin (test code = 718-7) 8.0 10.6-15.6 L [facility] FallsHematocrit2019-09-12 05:05:00 Test Item Value Reference Range Interpretation Comments Hematocrit (test code = 75025-2) 23.3 32.0-45.9 L [facility] Corpuscular Yiubwj2274-66-12 05:05:00 Test Item Value Reference Range Interpretation Comments Mean Corpuscular Volume (test code = 91.8 74.6-98.2 00836-3) [facility] Corpuscular Vachhxkjmn0152-98-27 05:05:00 Test Item Value Reference Range Interpretation Comments Mean Corpuscular Hemoglobin (test code 31.6 24.3-33.8 = 33177-8) [facility] Corpuscular Hgb Concent Xeir1107-66-89 05:05:00 Test Item Value Reference Range Interpretation Comments Mean Corpuscular Hgb Concent Diff (test 34.4 32.0-36.0 code = 64988-0) [facility] FallsRed Cell Distribution Mpmrt9594-70-15 05:05:00 Test Item Value Reference Range Interpretation Comments Red Cell Distribution Width (test code 15.6 11.4-16.3 = 44382-6) [facility] FallsPlatelet Wyzco9644-57-07 05:05:00 Test Item Value Reference Range Interpretation Comments Platelet Count (test code = 777-3) 179 168-441 [facility] Platelet Rewkxe5312-36-02 05:05:00 Test Item Value Reference Range Interpretation Comments Mean Platelet Volume (test code = 8.9 6.8-10.2 68234-9) [facility] FallsGranulocytes (%)2019-04-16 05:05:00 Test Item Value Reference Range Interpretation Comments Granulocytes (%) (test code = 81833-0) 79.9 39.8-78.1 H [facility] FallsLymphocytes %2019-04-16 05:05:00 Test Item Value Reference Range Interpretation Comments Lymphocytes % (test code = 736-9) 2.6 14.1-47.6 L [facility] FallsMonocytes %2019-04-16 05:05:00 Test Item Value Reference Range Interpretation Comments Monocytes % (test code = 5905-5) 15.3 3.8-11.6 H [facility] FallsEosinophils %2019-04-16 05:05:00 Test Item Value Reference Range Interpretation Comments Eosinophils % (test code = 713-8) 1.6 0.6-7.3 [facility] FallsBasophils %2019-04-16 05:05:00 Test Item Value Reference Range Interpretation Comments Basophils % (test code = 43818-4) 0.6 0.0-2.0 [facility] FallsGranulocytes #2019-04-16 05:05:00 Test Item Value Reference Range Interpretation Comments Granulocytes # (test code = 29384-0) 6.5 1.6-10.1 [facility] FallsLymphocytes #2019-04-16 05:05:00 Test Item Value Reference Range Interpretation Comments Lymphocytes # (test code = 12923-6) 0.2 0.6-6.1 L [facility] FallsMonocytes #2019-04-16 05:05:00 Test Item Value Reference Range Interpretation Comments Monocytes # (test code = 742-7) 1.2 0.2-1.5 [facility] FallsEosinophils #2019-04-16 05:05:00 Test Item Value Reference Range Interpretation Comments Eosinophils # (test code = 711-2) 0.1 0.0-0.9 [facility] FallsBasophils #2019-04-16 05:05:00 Test Item Value Reference Range Interpretation Comments Basophils # (test code = 17239-0) 0.0 0.0-0.2 [facility] FallsManual Twjjgrbbzwgo7917-95-39 05:05:00 Test Item Value Reference Range Interpretation Comments Manual Differential (test code = Manual NO Differential) [facility] FallsBlood Yfznbyh8756-04-11 08:16:00 Test Item Value Reference Range Interpretation Comments Blood Culture (test code NO GROWTH AT 48 HRS = 600-7) [facility] Centerycin Level Jenwrg1387-27-18 07:38:00 Test Item Value Reference Range Interpretation Comments Vancomycin Level Trough (test code = 19.8 10-15 H 4092-3) [facility] Centerycin Level Kqptmw2299-38-25 07:38:00 Test Item Value Reference Range Interpretation Comments Vancomycin Level Trough (test code = 19.8 10-15 H 4092-3) [facility] FallsAlbumin2019-09-08 05:51:00 Test Item Value Reference Range Interpretation Comments Albumin (test code = 1751-7) 2.1 3.5-5.0 L [facility] FallsTotal Dtoolnjno7859-81-53 05:51:00 Test Item Value Reference Range Interpretation Comments Total Bilirubin (test code = 1975-2) 1.1 0.2-1.2 [facility] FallsAlkaline Tseyaxxvlqh6037-22-73 05:51:00 Test Item Value Reference Range Interpretation Comments Alkaline Phosphatase (test code = 108 32-91 H 6768-6) [facility] FallsTotal Lclgbfu3211-41-13 05:51:00 Test Item Value Reference Range Interpretation Comments Total Protein (test code = 2885-2) 5.9 6.5-8.1 L [facility] FallsAlanine Aminotransferase (ALT/SGPT)2019-04-12 05:51:00 Test Item Value Reference Range Interpretation Comments Alanine Aminotransferase (ALT/SGPT) 33 7-55 (test code = 1742-6) [facility] FallsAspartate Amino Transf (AST/SGOT)2019-04-12 05:51:00 Test Item Value Reference Range Interpretation Comments Aspartate Amino Transf (AST/SGOT) (test 64 15-41 H code = 1920-8) [facility] FallsGlobulin2019-09-08 05:51:00 Test Item Value Reference Range Interpretation Comments Globulin (test code = 05137-5) 3.8 2.3-3.5 H [facility] FallsAlbumin/Globulin Eairo6464-06-85 05:51:00 Test Item Value Reference Range Interpretation Comments Albumin/Globulin Ratio (test code = 0.6 1.2-2.2 L 1759-0) [facility] FallsUrine Pctgwhw3051-60-96 06:12:00 Test Item Value Reference Range Interpretation Comments Urine Culture (test Organism: Escherichia code = 630-4) Coli [facility] Syjjgfx6727-98-90 06:12:00 Test Item Value Reference Range Interpretation Comments Urine Culture (test Organism: Escherichia code = 630-4) Coli [facility] FallsHemoglobin2019-09-05 15:43:00 Test Item Value Reference Range Interpretation Comments Hemoglobin (test code = 718-7) 8.0 10.6-15.6 L [facility] FallsHematocrit2019-09-05 15:43:00 Test Item Value Reference Range Interpretation Comments Hematocrit (test code = 83369-2) 24.1 32.0-45.9 L [facility] FallsHemoglobin2019-09-05 15:43:00 Test Item Value Reference Range Interpretation Comments Hemoglobin (test code = 718-7) 8.0 10.6-15.6 L [facility] FallsHematocrit2019-09-05 15:43:00 Test Item Value Reference Range Interpretation Comments Hematocrit (test code = 11631-5) 24.1 32.0-45.9 L [facility] Oepcamb5622-82-46 08:19:00 Test Item Value Reference Range Interpretation Comments Blood Culture (test Organism: Group G code = 600-7) Streptococcus [facility] Wqvwhzp2334-14-55 08:19:00 Test Item Value Reference Range Interpretation Comments Blood Culture (test Organism: Group G code = 600-7) Streptococcus [facility] FallsGlucose (Fingerstick)2019-04-08 17:31:00 Test Item Value Reference Range Interpretation Comments Glucose (Fingerstick) (test code = 207 65-99 H 18265-0) [facility] FallsGlucose (Fingerstick)2019-04-08 17:31:00 Test Item Value Reference Range Interpretation Comments Glucose (Fingerstick) (test code = 207 65-99 H 83113-3) [facility] Fluid Segmented Goxinhktcva4458-06-48 15:46:00 Test Item Value Reference Range Interpretation Comments Body Fluid Segmented Neutrophils (test 96 code = 98984-8) [facility] Uqspkpqpcov4314-62-56 15:46:00 Test Item Value Reference Range Interpretation Comments Body Fluid Lymphocytes (test code = 4 04637-2) [facility]#CELLS FATJLZV0303-65-03 15:46:00 Test Item Value Reference Range Interpretation Comments #CELLS COUNTED (test code = #CELLS 100 COUNTED) [facility] Segmented Ntetkaalcmr6084-90-04 15:46:00 Test Item Value Reference Range Interpretation Comments Body Fluid Segmented Neutrophils (test 96 code = 62019-3) [facility] Fluid Jodocbiptnr0030-39-96 15:46:00 Test Item Value Reference Range Interpretation Comments Body Fluid Lymphocytes (test code = 4 93284-5) [facility] [place]#CELLS GJUWKHP3873-69-73 15:46:00 Test Item Value Reference Range Interpretation Comments #CELLS COUNTED (test code = #CELLS [address]) [facility] Fluid Nwnj5065-16-72 15:31:00 Test Item Value Reference Range Interpretation Comments Body Fluid Type (test code = PERITONEAL FLUID 14760-9) [facility] Fluid [id number] 15:31:00 Test Item Value Reference Range Interpretation Comments Body Fluid RBC (test code = 79579-1) 200 0-[address] [facility] Fluid BWA1135-60-00 15:31:00 Test Item Value Reference Range Interpretation Comments Body Fluid WBC (test code = 45759-1) 2200 0-20 H [facility]#ZFRVFHUXFJ9680-86-71 15:31:00 Test Item Value Reference Range Interpretation Comments #CONTAINERS (test code = #CONTAINERS) 1 [facility] TOTAL [id number] 15:31:00 Test Item Value Reference Range Interpretation Comments BF TOTAL VOLUME (test code = BF TOTAL 1000 VOLUME) [facility] TXDSEVHB9652-13-89 15:31:00 Test Item Value Reference Range Interpretation Comments SPECIMEN ADEQUACY (test code = ADEQUATE SPECIMEN ADEQUACY) [facility] Fluid Vwaa4623-19-78 15:31:00 Test Item Value Reference Range Interpretation Comments Body Fluid Type (test code = PERITONEAL FLUID 88573-6) [facility] [id number] 15:31:00 Test Item Value Reference Range Interpretation Comments Body Fluid RBC (test code = 36025-1) 200 0-[address] [facility] Fluid [id number] 15:31:00 Test Item Value Reference Range Interpretation Comments Body Fluid WBC (test code = 87212-3) 2200 0-20 H [facility]#VZIKWRSJLV2824-54-95 15:31:00 Test Item Value Reference Range Interpretation Comments #CONTAINERS (test code = #CONTAINERS) 1 [facility] TOTAL GERDHM2642-03-54 15:31:00 Test Item Value Reference Range Interpretation Comments BF TOTAL VOLUME (test code = BF TOTAL 1000 VOLUME) [facility] VILFBBVZ5727-22-06 15:31:00 Test Item Value Reference Range Interpretation Comments SPECIMEN ADEQUACY (test code = ADEQUATE SPECIMEN ADEQUACY) [facility] Smear Pathologist Ullusg1950-02-83 14:25:00 Test Item Value Reference Range Interpretation Comments Blood Smear Pathologist PANCYTOPENIA. Review (test code = [place] [address]-0) BLASTS, SCHISTOCYTES, OR PLATELET CLUMPS IDENTFIED. DR. REEVES; LAB.KN [facility] Smear Pathologist Djiiwx5088-71-46 14:25:00 Test Item Value Reference Range Interpretation Comments Blood Smear Pathologist PANCYTOPENIA. Review (test code = [place] [address]-9) BLASTS, SCHISTOCYTES, OR PLATELET CLUMPS IDENTFIED. DR. REEVES; LAB.KN [facility] FallsCholesterol Ozdfm0355-26-52 13:03:00 Test Item Value Reference Range Interpretation Comments Cholesterol Level (test code = 2093-3) 71 0-200 [facility] FallsTriglycerides Nfrbv6624-23-05 13:03:00 Test Item Value Reference Range Interpretation Comments Triglycerides Level (test code = 34 10-150 2571-8) Normal triglycerides: <150 mg/dLBorderline-high triglycerides: 150-199 mg/dLHigh triglycerides: 200-499 mg/dLVery high triglycerides: > or = 500 mg/dLB[facility] FallsHDL Mjquawrhojh6588-64-66 13:03:00 Test Item Value Reference Range Interpretation Comments HDL Cholesterol (test code = 2085-9) 23.1 40-130 L [facility] FallsN/F2537-06-26 13:03:00 Test Item Value Reference Range Interpretation Comments N/A (test code = 37726-6) 3.1 0.0-5.0 [facility] FallsLDL Cholesterol (Measured)2019-04-08 13:03:00 Test Item Value Reference Range Interpretation Comments LDL Cholesterol (Measured) (test code = 37 0-130 15025-2) *LDL Cholesterol <130 mg/dL, No CHD or CHD Risk Equivalent <100 mg/dL, With CHD or CHD Risk Equivalent LDL Cholesterol Therapeutic Goal:100 mg/dL or Less if CHD or CHD Risk Equivalent Present<130 mg/dL if No CHD or REq; 2 or more Risk Factors<160 mg/dL if No CHD or REq; 0-1 Risk Factors Reference: ATP III, SALVATORE, 285:19, 1066-97, 2001.[facility] FallsThyroid Stimulating Hormone (TSH)2019-04-08 13:03:00 Test Item Value Reference Range Interpretation Comments Thyroid Stimulating Hormone (TSH) (test 1.83 0.34-5.6 code = 3015-5) [facility] FallsCholesterol Ifdyh2239-38-92 13:03:00 Test Item Value Reference Range Interpretation Comments Cholesterol Level (test code = 2093-3) 71 0-200 [facility] FallsTriglycerides Gqgdb8994-11-20 13:03:00 Test Item Value Reference Range Interpretation Comments Triglycerides Level (test code = 34 10-150 2571-8) Normal triglycerides: <150 mg/dLBorderline-high triglycerides: 150-199 mg/dLHigh triglycerides: 200-499 mg/dLVery high triglycerides: > or = 500 mg/dLB[facility] FallsHDL Gxrcmpzsmhw7011-29-50 13:03:00 Test Item Value Reference Range Interpretation Comments HDL Cholesterol (test code = 2085-9) 23.1 40-130 L [facility] FallsN/[id number] 13:03:00 Test Item Value Reference Range Interpretation Comments N/A (test code = 58260-7) 3.1 0.0-5.0 [facility] FallsLDL Cholesterol (Measured)2019-04-08 13:03:00 Test Item Value Reference Range Interpretation Comments LDL Cholesterol (Measured) (test code = 37 0-130 84585-9) *LDL Cholesterol <130 mg/dL, No CHD or CHD Risk Equivalent <100 mg/dL, With CHD or CHD Risk Equivalent LDL Cholesterol Therapeutic Goal:100 mg/dL or Less if CHD or CHD Risk Equivalent Present<130 mg/dL if No CHD or REq; 2 or more Risk Factors<160 mg/dL if No CHD or REq; 0-1 Risk Factors Reference: ATP III, SALVATORE, 285:19, 0154-06, 2001.[facility] FallsThyroid Stimulating Hormone (TSH)2019-04-08 13:03:00 Test Item Value Reference Range Interpretation Comments Thyroid Stimulating Hormone (TSH) (test 1.83 0.34-5.6 code = 3015-5) [facility] FallsHemoglobin A1c [id number] 12:52:00 Test Item Value Reference Range Interpretation Comments Hemoglobin A1c Percent (test code = 5.10 4.0-5.6 4548-4) Prediabetes 5.7% to 6.4%Diabetes 6.5% orhigher Elevated levels of HbA1c suggest the need for moreaggressive treatment of glycemia. The [place] Diabetes[employer] recommends that a primary goal of therapy shouldbe a HbA1c of <7% and that physicians should reevaluate thetreatment regimen in patients with HbA1c values consistently>8%. [facility]/[id number] 12:52:00 Test Item Value Reference Range Interpretation Comments N/A (test code = 14758-7) 101 A1C Result% Estimated Avg.Glucose (EAG) 6.0% 126 mg/dL 6.5% 140 mg/dL 7.0% 154 mg/dL 7.5% 169 mg/dL 8.0% 183 mg/dL 8.5% 197 mg/dL 9.0% 212 mg/dL 9.5% 226 mg/dL 10.0% 240 mg/dL Reference: ross Montero, Diabetes Care 31: 1437, 2008.[facility] FallsHemoglobin A1c [id number] 12:52:00 Test Item Value Reference Range Interpretation Comments Hemoglobin A1c Percent (test code = 5.10 4.0-5.6 4548-4) Prediabetes 5.7% to 6.4%Diabetes 6.5% or higher Elevated levels of HbA1c suggest the need for moreaggressive treatment of glycemia. The [place] [employer] recommends that a primary goal of therapy shouldbe a HbA1c of <7% and that physicians should reevaluate thetreatment regimen in patients with HbA1c values consistently>8%. [facility]/[id number] 12:52:00 Test Item Value Reference Range Interpretation Comments N/A (test code = 84162-6) 101 A1C Result% Estimated Avg.Glucose (EAG) 6.0% 126 mg/dL 6.5% 140 mg/dL 7.0% 154 mg/dL 7.5% 169 mg/dL 8.0% 183 mg/dL 8.5% 197 mg/dL 9.0% 212 mg/dL 9.5% 226 mg/dL10.0% 240 mg/dL Reference: ross Montero, Diabetes Care 31: 1437, 2008. [facility]/[id number] 12:25:00 Test Item Value Reference Range Interpretation Comments N/A (test code = N/A) CALCULATE BELOW CORONARY HEART DISEASE (CHD) RISK FACTORS: +1, Age (y): Men, >45 Women, >55 or Premature Menopause Without Estrogen Therapy +1, Family History of Premature CHD +1, Current Cigarette Smoking +1, Hypertension +1, Low HDL-C: <40 mg/dL -1, High HDL-C: 60 mg/dL or More Total RFs CHD Risk Equivalents (REq): Diabetes Other Forms of Atherosclerotic Disease Lipid testing of hospitalized patients may be inaccurate dueto fluctuations from the patients normal metabolic state. Accurate triglyceride and LDL testing requires a fastingspecimen. If non-fasting cholesterol > or = 200 mg/dL orHDL is < 40 mg/dL, fasting lipid panel is recommended.Repeat testing recommended prior to treatment. [facility]/[id number] 12:25:00 Test Item Value Reference Range Interpretation Comments N/A (test code = N/A) CALCULATE BELOW CORONARY HEART DISEASE (CHD) RISK FACTORS: +1, Age (y): Men, >45 Women, >55 or Premature Menopause Without Estrogen Therapy +1, Family History of Premature CHD +1, Current Cigarette Smoking +1, Hypertension +1, Low HDL-C: <40 mg/dL -1, High HDL-C: 60 mg/dL or More Total RFs CHD Risk Equivalents (REq): Diabetes Other Forms of Atherosclerotic Disease Lipid testing of hospitalized patients may be inaccurate dueto fluctuations from the patients normal metabolic state. Accurate triglyceride and LDL testing requires a fastingspecimen. If non-fastingcholesterol > or = 200 mg/dL orHDL is < 40 mg/dL, fasting lipid panel is recommended.Repeat testing recommended prior to treatment. [facility] HospitalProthrombin [id number] 11:12:00 Test Item Value Reference Range Interpretation Comments Prothrombin Time (test code = 5964-2) 15.0 10.0-12.9 H [facility] FallsINR International Normalized [id number] 11:12:00 Test Item Value Reference Range Interpretation Comments INR International Normalized Ratio 1.4 0.91-1.15 H (test code = 6301-6) THE INR IS TO BE USED ONLY FOR MONITORING ORAL ANTICOAGULANTTHERAPY. INDICATION INR VALUE 1. Prophylaxis of venous thrombosis 2.0-3.0 (high-risk surgery) Treatment of venous thrombosis Treatment of PE Prevention of systemic embolism Tissue heart valves AMI (to prevent systemic embolism) Valvular heart disease Atrial fibrillation Bileaflet mechanical valve in aortic position 2. Mechanical prostheticheart valves (high risk) 2.5-3.5 Thrombosis and Antiphospholipid syndrome Prevention of recurrent MISixth ACCP Consensus Conference on Antithrombotic Therapy,Chest 2001; 119:Supplement 8-21.[facility] FallsActivated Partial Thromboplast [id number] 11:12:00 Test Item Value Reference Range Interpretation Comments Activated Partial Thromboplast Time 35.1 25.1-36.5 (test code = 3173-2) [facility] [id number] 01:06:00 Test Item Value Reference Range Interpretation Comments Urine Color (test code = 54035-3) [place] YELLOW A Substances that cause abnormal urine color may affect thereadability of test pads on urinalysis reagent strips. Thesesubstances include visible levels of blood or bilirubin anddrugs containing dyes (e.g., Pyridium, Azo Gantrisin, AzoGantanol), nitrofurantion (Macrodantin, Furadantin), orriboflavin.[facility] [id number] 01:06:00 Test Item Value Reference Range Interpretation Comments Urine Clarity (test code = 28575-5) Cloudy CLEAR A [facility] [id number] 01:06:00 Test Item Value Reference Range Interpretation Comments Urine Glucose (test code = 5792-7) NEGATIVE NEGATIVE [facility] [id number] 01:06:00 Test Item Value Reference Range Interpretation Comments Urine Bilirubin (test code = 5770-3) SMALL NEGATIVE A [facility] [id number] 01:06:00 Test Item Value Reference Range Interpretation Comments Urine Ketones (test code = 5797-6) NEGATIVE NEGATIVE [facility] Specific [id number] 01:06:00 Test Item Value Reference Range Interpretation Comments Urine Specific [place] (test code = 1.049 1.002-1.030 H 5811-5) [facility] [id number] 01:06:00 Test Item Value Reference Range Interpretation Comments Urine Blood (test code = 20052-8) LARGE NEGATIVE A [facility] [id number] 01:06:00 Test Item Value Reference Range Interpretation Comments Urine pH (test code = 5803-2) 5 5.0-8.0 [facility] Ogasuwz3080-17-07 01:06:00 Test Item Value Reference Range Interpretation Comments Urine Protein (test code = 5804-0) NEGATIVE NEGATIVE [facility] [id number] 01:06:00 Test Item Value Reference Range Interpretation Comments Urine Urobilinogen (test code = 2.0 NEGATIVE A 37013-2) [facility] [id number] 01:06:00 Test Item Value Reference Range Interpretation Comments Urine Nitrite (test code = 5802-4) NEGATIVE NEGATIVE [facility] Leukocyte Dqxrafbj7248-02-52 01:06:00 Test Item Value Reference Range Interpretation Comments Urine Leukocyte Esterase (test code = 250 NEGATIVE A 30042-6) [facility] [id number] 01:06:00 Test Item Value Reference Range Interpretation Comments Urine RBC (test code = 30999-0) 15-30 0-2 A [facility] [id number] 01:06:00 Test Item Value Reference Range Interpretation Comments Urine WBC (test code = 56429-0) 6-14 0-5 A "Urine Culture test was reflexed and added to this specimen"[facility] Squamous Epithelial [id number] 01:06:00 Test Item Value Reference Range Interpretation Comments Urine Squamous Epithelial Cells (test 3-5 0-5 code = 37207-4) [facility] [id number] 01:06:00 Test Item Value Reference Range Interpretation Comments Urine Bacteria (test code = 54487-4) RARE NEGATIVE A [facility] WBC [id number] 01:06:00 Test Item Value Reference Range Interpretation Comments Urine WBC Clumps (test code = 78804-4) 6-14 NEGATIVE A [facility] Amorphous [id number] 01:06:00 Test Item Value Reference Range Interpretation Comments Urine Amorphous Crystals (test code = RARE NEGATIVE A 29537-3) [facility] [id number] 01:06:00 Test Item Value Reference Range Interpretation Comments Urine Mucus (test code = 16575-1) 1+ NEGATIVE [facility] [id number] 01:06:00 Test Item Value Reference Range Interpretation Comments Urine Color (test code = 65569-8) [place] YELLOW A Substances that cause abnormal urine color may affect thereadability of test pads on urinalysis reagent strips. Thesesubstances include visible levels of blood or bilirubin anddrugs containing dyes (e.g., Pyridium, Azo Gantrisin, AzoGantanol), nitrofurantion (Macrodantin, Furadantin), orriboflavin.[facility] [id number] 01:06:00 Test Item Value Reference Range Interpretation Comments Urine Clarity (test code = 26103-9) Cloudy CLEAR A [facility] [id number] 01:06:00 Test Item Value Reference Range Interpretation Comments Urine Glucose (test code = 5792-7) NEGATIVE NEGATIVE [facility] [id number] 01:06:00 Test Item Value Reference Range Interpretation Comments Urine Bilirubin (test code = 5770-3) SMALL NEGATIVE A [facility] [id number] 01:06:00 Test Item Value Reference Range Interpretation Comments Urine Ketones (test code = 5797-6) NEGATIVE NEGATIVE [facility] Specific [id number] 01:06:00 Test Item Value Reference Range Interpretation Comments Urine Specific [place] (test code = 1.049 1.002-1.030 H 5811-5) [facility] [id number] 01:06:00 Test Item Value Reference Range Interpretation Comments Urine Blood (test code = 29526-2) LARGE NEGATIVE A [facility] [id number] 01:06:00 Test Item Value Reference Range Interpretation Comments Urine pH (test code = 5803-2) 5 5.0-8.0 [facility] Bsjwpny3365-09-77 01:06:00 Test Item Value Reference Range Interpretation Comments Urine Protein (test code = 5804-0) NEGATIVE NEGATIVE [facility] Bpdzucyragyg0436-03-06 01:06:00 Test Item Value Reference Range Interpretation Comments Urine Urobilinogen (test code = 2.0 NEGATIVE A 55698-0) [facility] [id number] 01:06:00 Test Item Value Reference Range Interpretation Comments Urine Nitrite (test code = 5802-4) NEGATIVE NEGATIVE [facility] Leukocyte [id number] 01:06:00 Test Item Value Reference Range Interpretation Comments Urine Leukocyte Esterase (test code = 250 NEGATIVE A 58391-7) [facility] [id number] 01:06:00 Test Item Value Reference Range Interpretation Comments Urine RBC (test code = 68208-5) 15-30 0-2 A [facility] [id number] 01:06:00 Test Item Value Reference Range Interpretation Comments Urine WBC (test code = 19413-4) 6-14 0-5 A "Urine Culture test was reflexed and added to this specimen"[facility] Squamous Epithelial [id number] 01:06:00 Test Item Value Reference Range Interpretation Comments Urine Squamous Epithelial Cells (test 3-5 0-5 code = 46286-4) [facility] Rigikcjc7536-60-29 01:06:00 Test Item Value Reference Range Interpretation Comments Urine Bacteria (test code = 65962-1) RARE NEGATIVE A [facility] WBC [id number] 01:06:00 Test Item Value Reference Range Interpretation Comments Urine WBC Clumps (test code = 47912-2) 6-14 NEGATIVE A [facility] Amorphous [id number] 01:06:00 Test Item Value Reference Range Interpretation Comments Urine Amorphous Crystals (test code = RARE NEGATIVE A 72686-6) [facility] [id number] 01:06:00 Test Item Value Reference Range Interpretation Comments Urine Mucus (test code = 76009-4) 1+ [facility]IVE [facility] and Ab, 4th [id number] 22:41:00 Test Item Value Reference Range Interpretation Comments HIV (1&2) Ag and Ab, 4th NONREACTIVE NONREACTIVE Generation (test code = 11303-6) Limitations -The interpretation of specimens with a final result of reactiveby this assay and indeterminate by supplemental testing is not definitive; further clarification maybe obtained by testing another specimen taken at least 1 month later.-Reactive test results should be confirmed by additional testing using other tests.-A Nonreactive result does not preclude the possibility of exposure to HIV or infection with HIV.-A person who has HIV-1 p24 antigen or antibodies to HIV-1 or HIV-2 is presumed to be infected with the virus. However a person who has participated in anHIV vaccine study may develop antibodies to the vaccine and may not be infected with HIV.-The performance of this assay has not been established for individual younger than 2 years of age.- Specimens from individuals infected with HIV-1 and/or HIV-2 who are receiving antiretroviral (ART) therapy may produce false negative test results.-Specimens from individuals with Toxoplasma IgG, human anti-mouse antibodies, rheumatoid factor, elevated triglycerides (above 600 mg/dL), herpes simplex virus infection , hospitalized and cancer patients may give false positive test results. [facility]HIV (1&2) Ag and Ab, 4th [id number] 22:41:00 Test Item Value Reference Range Interpretation Comments HIV (1&2) Ag and Ab, 4th NONREACTIVE NONREACTIVE Generation (test code = 10877-6) Limitations -The interpretation of specimens with a final result of reactiveby this assay and indeterminate by supplemental testing is not definitive; further clarification maybe obtained by testing another specimen taken at least 1 month later.-Reactive test results should be confirmed by additional testing using other tests.-A Nonreactive result does not preclude the possibility of exposure to HIV or infection with HIV.-A person who has HIV-1 p24 antigen or antibodies to HIV-1 or HIV-2 is presumed to be infected with the virus. However a person who has participated in anHIV vaccine study may develop antibodies to the vaccine and may not be infected with HIV.-The performance of this assay has not been established for individual younger than 2 years of age.- Specimens from individuals infected with HIV-1 and/or HIV-2 who are receiving antiretroviral (ART) therapy may produce false negative test results.-Specimens from individuals with Toxoplasma IgG, human anti-mouse antibodies, rheumatoid factor, elevated triglycerides (above 600 mg/dL), herpes simplex virus infection , hospitalized and cancer patients may give false positive test results. [facility] FallsLactic Acid [id number] 22:16:00 Test Item Value Reference Range Interpretation Comments Lactic Acid Level (test code = 2524-7) 2.2 0.5-2.0 Critical Result S_LAC:2.2 Called to and read back by: AADL POMPA at: 04/07/2019 22:19:39 by:[facility]ANYHill [facility] Hospitalegmented Neutrophils 2019-04-07 19:12:00 Test Item Value Reference Range Interpretation Comments Segmented Neutrophils (test code = 42 42-75 32818-2) [facility] FallsBand [id number] 19:12:00 Test Item Value Reference Range Interpretation Comments Band Neutrophils (test code = 43366-9) 16 2-10 H [facility] FallsZxikatdwEahpcofvwdg2282-29-14 19:12:00 Test Item Value Reference Range Interpretation Comments Lymphocytes (test code = 57450-0) 30 20-51 [facility] FallsMonocytes2019-09-03 19:12:00 Test Item Value Reference Range Interpretation Comments Monocytes (test code = 94186-6) 10 2-9 H [facility] FallsEmeivvubJvzdssapbyk7613-18-32 19:12:00 Test Item Value Reference Range Interpretation Comments Eosinophils (test code = 96532-2) 2 1-4 [facility] FallsPlatelet [id number] 19:12:00 Test Item Value Reference Range Interpretation Comments Platelet Estimate (test code = DECREASED ADEQUATE A 46279-1) [facility] FallsPlatelet [id number] 19:12:00 Test Item Value Reference Range Interpretation Comments Platelet Morphology (test code = NORMAL NORMAL 01026-9) [facility] FallsNormal RBC [id number] 19:12:00 Test Item Value Reference Range Interpretation Comments Normal RBC Morphology (test code = NORMAL NORMAL 36433-8) [facility] [id number] 19:12:00 Test Item Value Reference Range Interpretation Comments Band Neutrophils (test code = 61627-4) 16 2-10 H [facility] METABOLIC [id number] 05:46:00 Test Item Value Reference Range Interpretation Comments SODIUM (BEAKER) 133 meq/L 136-145 L (test code = 381) POTASSIUM (BEAKER) 3.0 meq/L 3.5-5.1 L (test code = 379) CHLORIDE (BEAKER) 107 meq/L 98-107 (test code = 382) CO2 (BEAKER) (test 18 meq/L 22-29 L code = 355) BLOOD UREA NITROGEN 15 mg/dL 7-21 (BEAKER) (test code = 354) CREATININE (BEAKER) 0.93 mg/dL 0.57-1.25 (test code = 358) GLUCOSE RANDOM 94 mg/dL 70-105 (BEAKER) (test code = 652) CALCIUM (BEAKER) 8.1 mg/dL 8.4-10.2 L (test code = 697) EGFR (BEAKER) (test 64 mL/min/1.73 ESTIMA CLARK GFR IS code = 1092) sq m NOT ACCURATE CREATININE CLEARANCE IN PREDICTING GLOMERULAR FILTRATION RATE . ESTIMATED GFR I S NOT APPLICABLE FOR DIALYSIS PATIEN TS. CBC W/PLT COUNT & AUTO [id number] 05:30:00 Test Item Value Reference Range Interpretation Comments WHITE BLOOD CELL COUNT (BEAKER) 4.3 K/ L 3.5-10.5 (test code = 775) RED BLOOD CELL COUNT (BEAKER) 2.91 M/ L 3.93-5.22 L (test code = 761) HEMOGLOBIN (BEAKER) (test code = 8.1 GM/DL 11.2-15.7 L 410) HEMATOCRIT (BEAKER) (test code = 25.6 % 34.1-44.9 L 411) MEAN CORPUSCULAR VOLUME (BEAKER) 88.0 fL 79.4-94.8 (test code = 753) MEAN CORPUSCULAR HEMOGLOBIN 27.8 pg 25.6-32.2 (BEAKER) (test code = 751) MEAN CORPUSCULAR HEMOGLOBIN CONC 31.6 GM/DL 32.2-35.5 L (BEAKER) (test code = 752) RED CELL DISTRIBUTION WIDTH 16.3 % 11.7-14.4 H (BEAKER) (test code = 412) PLATELET COUNT (BEAKER) (test 129 K/CU MM 150-450 L code = 756) MEAN PLATELET VOLUME (BEAKER) 11.5 fL 9.4-12.3 (test code = 754) NUCLEATED RED BLOOD CELLS 0 /100 WBC 0-0 (BEAKER) (test code = 413) NEUTROPHILS RELATIVE PERCENT 71 % (BEAKER) (test code = 429) LYMPHOCYTES RELATIVE PERCENT 6 % (BEAKER) (test code = 430) MONOCYTES RELATIVE PERCENT 14 % (BEAKER) (test code = 431) EOSINOPHILS RELATIVE PERCENT 7 % (BEAKER) (test code = 432) BASOPHILS RELATIVE PERCENT 1 % (BEAKER) (test code = 437) NEUTROPHILS ABSOLUTE COUNT 3.07 K/ L 1.56-6.13 (BEAKER) (test code = 670) LYMPHOCYTES ABSOLUTE COUNT 0.27 K/ L 1.18-3.74 L (BEAKER) (test code = 414) MONOCYTES ABSOLUTE COUNT (BEAKER) 0.60 K/ L 0.24-0.36 H (test code = 415) EOSINOPHILS ABSOLUTE COUNT 0.29 K/ L 0.04-0.36 (BEAKER) (test code = 416) BASOPHILS ABSOLUTE COUNT (BEAKER) 0.06 K/ L 0.01-0.08 (test code = 417) IMMATURE GRANULOCYTES-RELATIVE 0 % 0-1 PERCENT (BEAKER) (test code = 2801) BASIC METABOLIC [id number] 07:48:00 Test Item Value Reference Range Interpretation Comments SODIUM (BEAKER) 134 meq/L 136-145 L (test code = 381) POTASSIUM (BEAKER) 3.7 meq/L 3.5-5.1 Specimen slightly (test code = 379) hemolyzed CHLORIDE (BEAKER) 107 meq/L 98-107 (test code = 382) CO2 (BEAKER) (test 17 meq/L 22-29 L code = 355) BLOOD UREA NITROGEN 15 mg/dL 7-21 (BEAKER) (test code = 354) CREATININE (BEAKER) 0.84 mg/dL 0.57-1.25 Specimen slightly (test code = 358) hemolyzed GLUCOSE RANDOM 88 mg/dL 70-105 (BEAKER) (test code = 652) CALCIUM (BEAKER) 8.1 mg/dL 8.4-10.2 L (test code = 697) EGFR (BEAKER) (test 72 mL/min/1.73 ESTIMA CLARK GFR IS code = 1092) sq m NOT ACCURATE CREATININE CLEARANCE IN PREDICTING GLOMERULAR FILTRATION RATE . ESTIMATED GFR I S NOT APPLICABLE FOR DIALYSIS PATIEN TS. CBC W/PLT COUNT & AUTO [id number] 07:40:00 Test Item Value Reference Range Interpretation Comments WHITE BLOOD CELL COUNT (BEAKER) 4.3 K/ L 3.5-10.5 (test code = 775) RED BLOOD CELL COUNT (BEAKER) 2.96 M/ L 3.93-5.22 L (test code = 761) HEMOGLOBIN (BEAKER) (test code = 8.2 GM/DL 11.2-15.7 L 410) HEMATOCRIT (BEAKER) (test code = 26.4 % 34.1-44.9 L 411) MEAN CORPUSCULAR VOLUME (BEAKER) 89.2 fL 79.4-94.8 (test code = 753) MEAN CORPUSCULAR HEMOGLOBIN 27.7 pg 25.6-32.2 (BEAKER) (test code = 751) MEAN CORPUSCULAR HEMOGLOBIN CONC 31.1 GM/DL 32.2-35.5 L (BEAKER) (test code = 752) RED CELL DISTRIBUTION WIDTH 15.9 % 11.7-14.4 H (BEAKER) (test code = 412) PLATELET COUNT (BEAKER) (test 121 K/CU MM 150-450 L code = 756) MEAN PLATELET VOLUME (BEAKER) 11.4 fL 9.4-12.3 (test code = 754) NUCLEATED RED BLOOD CELLS 0 /100 WBC 0-0 (BEAKER) (test code = 413) NEUTROPHILS RELATIVE PERCENT 83 % (BEAKER) (test code = 429) LYMPHOCYTES RELATIVE PERCENT 4 % (BEAKER) (test code = 430) MONOCYTES RELATIVE PERCENT 7 % (BEAKER) (test code = 431) EOSINOPHILS RELATIVE PERCENT 4 % (BEAKER) (test code = 432) BASOPHILS RELATIVE PERCENT 1 % (BEAKER) (test code = 437) NEUTROPHILS ABSOLUTE COUNT 3.57 K/ L 1.56-6.13 (BEAKER) (test code = 670) LYMPHOCYTES ABSOLUTE COUNT 0.18 K/ L 1.18-3.74 L (BEAKER) (test code = 414) MONOCYTES ABSOLUTE COUNT (BEAKER) 0.31 K/ L 0.24-0.36 (test code = 415) EOSINOPHILS ABSOLUTE COUNT 0.17 K/ L 0.04-0.36 (BEAKER) (test code = 416) BASOPHILS ABSOLUTE COUNT (BEAKER) 0.06 K/ L 0.01-0.08 (test code = 417) IMMATURE GRANULOCYTES-RELATIVE 1 % 0-1 PERCENT (BEAKER) (test code = 2801) U/S, [id number] 17:49:00TherapeuticReason for exam:- >AscitesShould this be performed at the bedside?->NoFINAL REPORT Paracentesis dated 12/06/2018 Procedure: Ultrasound-guided paracentes is. Preprocedure diagnosis: Ascites Postprocedure diagnosis: Ascites Conscious sedation: None. Radiologist: Laure Jules M.D. Terrazzo Polisher: None Anesthesia: 1% Xylocaine mixed with sodium bicarbonate localanesthesia. Technique: After obtaining informed consent, ultrasound-guided paracentesis was performed under usual sterile technique. Using a 5 telugu drainage catheter, puncture was made in the right lower quadrant abdomen. Approximately 11,500 cc of serous fluid was removed. Patient tolerated the procedure well without complication. Complication: None Graft/Implant: None Estimated Blood Loss: None Impression: Ultrasound-guided paracentesis. Signed: Laure Julesort Verified Date/Time: 12/06/2018 17:49:10 Reading Location: [address] Consult Reading [facility] 2018-12[facility] 15:10:00 Test Item Value Reference Range Interpretation Comments PARTIAL THROMBOPLASTIN TIME 35.9 seconds 22.5-36.0 (BEAKER) (test code = 760) PROTHROMBIN TIME/[id number] 15:09:00 Test Item Value Reference Range Interpretation Comments PROTIME (BEAKER) (test code = 16.7 seconds 11.7-14.7 H 759) INR (BEAKER) (test code = 370) 1.4 <=5.9 RECOMMENDED COUMADIN/WARFARIN INR THERAPY RANGESSTANDARD DOSE: 2.0 - 3.0 Includes: PROPHYLAXIS for venous thrombosis, systemic embolization; TREATMENT for venous thrombosis and/or pulmonary embolus.HIGH RISK: Target INR is 2.5-3.5 for patients with mechanical heart valves.B-TYPE NATRIURETIC FACTOR (BNP) 2018-12-06 13:18:00 Test Item Value Reference Range Interpretation Comments B-TYPE NATRIURETIC PEPTIDE (BEAKER) 45 pg/mL 0-100 (test code = 700) COMPREHENSIVE METABOLIC [id number] 13:12:00 Test Item Value Reference Range Interpretation Comments TOTAL PROTEIN 6.6 gm/dL 6.0-8.3 (BEAKER) (test code = 770) ALBUMIN (BEAKER) 3.3 g/dL 3.5-5.0 L (test code = 1145) ALKALINE PHOSPHATASE 152 U/L 40-150 H (BEAKER) (test code = 346) BILIRUBIN TOTAL 1.3 mg/dL 0.2-1.2 H (BEAKER) (test code = 377) SODIUM (BEAKER) (test 135 meq/L 136-145 L code = 381) POTASSIUM (BEAKER) 4.5 meq/L 3.5-5.1 (test code = 379) CHLORIDE (BEAKER) 112 meq/L 98-107 H (test code = 382) CO2 (BEAKER) (test 15 meq/L 22-29 L code = 355) BLOOD UREA NITROGEN 11 mg/dL 7-21 (BEAKER) (test code = 354) CREATININE (BEAKER) 0.70 mg/dL 0.57-1.25 (test code = 358) GLUCOSE RANDOM 85 mg/dL 70-105 (BEAKER) (test code = 652) CALCIUM (BEAKER) 8.3 mg/dL 8.4-10.2 L (test code = 697) AST (SGOT) (BEAKER) 42 U/L 5-34 H (test code = 353) ALT (SGPT) (BEAKER) 18 U/L 6-55 (test code = 347) EGFR (BEAKER) (test 89 mL/min/1.73 ESTIMA CLARK GFR IS code = 1092) sq m NOT ACCURATE CREATININE CLEARANCE IN PREDICTING GLOMERULAR FILTRATION RATE . ESTIMATED GFR I S NOT APPLICABLE FOR DIALYSIS PATIEN TS. CBC W/PLT COUNT & AUTO [id number] 13:05:00 Test Item Value Reference Range Interpretation Comments WHITE BLOOD CELL COUNT (BEAKER) 3.9 K/ L 3.5-10.5 (test code = 775) RED BLOOD CELL COUNT (BEAKER) 2.30 M/ L 3.93-5.22 L (test code = 761) HEMOGLOBIN (BEAKER) (test code = 6.2 GM/DL 11.2-15.7 L 410) HEMATOCRIT (BEAKER) (test code = 20.9 % 34.1-44.9 L 411) MEAN CORPUSCULAR VOLUME (BEAKER) 90.9 fL 79.4-94.8 (test code = 753) MEAN CORPUSCULAR HEMOGLOBIN 27.0 pg 25.6-32.2 (BEAKER) (test code = 751) MEAN CORPUSCULAR HEMOGLOBIN CONC 29.7 GM/DL 32.2-35.5 L (BEAKER) (test code = 752) RED CELL DISTRIBUTION WIDTH 17.0 % 11.7-14.4 H (BEAKER) (test code = 412) PLATELET COUNT (BEAKER) (test 136 K/CU MM 150-450 L code = 756) MEAN PLATELET VOLUME (BEAKER) 10.6 fL 9.4-12.3 (test code = 754) NUCLEATED RED BLOOD CELLS 0 /100 WBC 0-0 (BEAKER) (test code = 413) NEUTROPHILS RELATIVE PERCENT 75 % (BEAKER) (test code = 429) LYMPHOCYTES RELATIVE PERCENT 7 % (BEAKER) (test code = 430) MONOCYTES RELATIVE PERCENT 14 % (BEAKER) (test code = 431) EOSINOPHILS RELATIVE PERCENT 2 % (BEAKER) (test code = 432) BASOPHILS RELATIVE PERCENT 1 % (BEAKER) (test code = 437) NEUTROPHILS ABSOLUTE COUNT 2.90 K/ L 1.56-6.13 (BEAKER) (test code = 670) LYMPHOCYTES ABSOLUTE COUNT 0.25 K/ L 1.18-3.74 L (BEAKER) (test code = 414) MONOCYTES ABSOLUTE COUNT (BEAKER) 0.54 K/ L 0.24-0.36 H (test code = 415) EOSINOPHILS ABSOLUTE COUNT 0.09 K/ L 0.04-0.36 (BEAKER) (test code = 416) BASOPHILS ABSOLUTE COUNT (BEAKER) 0.05 K/ L 0.01-0.08 (test code = 417) IMMATURE GRANULOCYTES-RELATIVE 1 % 0-1 PERCENT (BEAKER) (test code = 2801) [id number] 13:02:00 Test Item Value Reference Range Interpretation Comments AMMONIA (BEAKER) (test code = 348) 62 mol/L 18-72 U/S, [id number] 08:43:00Reason for exam:->ascitesReason for exam:->possible sbpShould this be performed at the bedside?->YesFINAL REPORT Ultrasound guided paracentesis, 05/23/2018. Clinical History: Ascites. Sedation: None. Non Licensed Nuclear Equipment Operator: Mckenzie. Terrazzo Polisher: None. Estimated Blood Loss: < 1 cc. Specimen: 6500 cc of clear yellow fluid, samples sent to laboratory. Technique: Informed consent was obtained. The risks of pain, bleeding, infection, bowel perforation, injury to adjacent structures, and adverse medication reactions were discussed with the patient. After informed consent was obtained, thepatient's abdomen was scanned. The right lower quadrant of the abdomen was selected for paracentesis. After the largest fluid pocket area was marked, and the anterior abdominal wall was evaluated with color Doppler to exclude presence of blood vessels traversing the area, the skin was prepped and draped in the usual sterile manner. After local anesthesia was achieved with 1% lidocaine, a 5 Amharic one-step catheter was advanced into the peritoneal cavity under ultrasound guidance. After completion ofdrainage, the catheter was removed. There was no evidence of complication. Patient Disposition: The patient was discharged from the ultrasound department after the paracentesis, in good condition. Impression:Successful ultrasound guided paracentesis. Signed: [facility] Verified Date/Time:06/02/2018 08:43:07 Reading Location: [place] [address] Angio Body Reading Room BODY FLUID CULTURE + GRAM [id number] 08:26:00 Test Item Value Reference Range Interpretation Comments CULTURE (BEAKER) (test code No growth = 1095) GRAM STAIN RESULT (BEAKER) 2+ WBCs (test code = 1123) GRAM STAIN RESULT (BEAKER) No organisms seen (test code = 71690) BLOOD [id number] 19:00:00 Test Item Value Reference Range Interpretation Comments CULTURE (BEAKER) (test No growth in 5 days code = 1095) BLOOD [id number] 19:00:00 Test Item Value Reference Range Interpretation Comments CULTURE (BEAKER) (test No growth in 5 days code = 1095) BODY FLUID CELL COUNT WITH [id number] 15:04:00 Test Item Value Reference Range Interpretation Comments APPEARANCE FLUID Hazy Clear A (BEAKER) (test code = 510) COLOR FLUID (BEAKER) Straw Colorless, Straw (test code = 511) RBC FLUID (BEAKER) 1220 /uL <=1 H (test code = 513) ADJUSTED WBC FLUID 193 /cu mm <=5 H (BEAKER) (test code = 1691) LINING CELLS (BEAKER) 14 /cu mm <=1 H (test code = 1590) NEUTROPHILS FLUID 44 % (BEAKER) (test code = 1656) LYMPHS FLUID (BEAKER) 26 % (test code = 488) MONO/MACROPHAGE FLUID 30 % (BEAKER) (test code = 489) EOSINOPHILS FLUID 0 % (BEAKER) (test code = 491) BASO FLUID (BEAKER) 0 % (test code = 492) INTERPRETATION-210 Negative for (BEAKER) (test code = malignant cells. 2619) FIXA-NVBEADSEDAT-975 Stanislav Sofia M.D. (BEAKER) (test code = (electronic 4530) signature) CONTAINER BODY FLUID Sterile Cup (BEAKER) (test code = 4483) BASIC METABOLIC [id number] 03:33:00 Test Item Value Reference Range Interpretation Comments SODIUM (BEAKER) 134 meq/L 135-148 L (test code = 381) POTASSIUM (BEAKER) 3.5 meq/L 3.5-5.5 (test code = 379) CHLORIDE (BEAKER) 107 meq/L 98-106 H (test code = 382) CO2 (BEAKER) (test 15 meq/L 20-31 L code = 355) BLOOD UREA NITROGEN 22 mg/dL 10-26 (BEAKER) (test code = 354) CREATININE (BEAKER) 1.51 mg/dL 0.50-1.20 H (test code = 358) GLUCOSE RANDOM 105 mg/dL 70-110 (BEAKER) (test code = 652) CALCIUM (BEAKER) 9.7 mg/dL 8.5-10.5 (test code = 697) EGFR (BEAKER) (test 37 mL/min/1.73 ESTIMA CLARK GFR IS code = 1092) sq m NOT ACCURATE CREATININE CLEARANCE IN PREDICTING GLOMERULAR FILTRATION RATE . ESTIMATED GFR I S NOT APPLICABLE FOR DIALYSIS PATIEN TS. Specimen slightly ictericU/S, [id number] 16:05:00Reason for exam:- >ascites, please only remove about 3L, pt with ZUNILDA too, dont want to shift fluidbalanceFINAL REPORT Ultrasound guided paracentesis, 05/26/2018. Clinical History: Ascites. Sedation: None. Non Licensed Nuclear Equipment Operator: Vishnu Perez MD Terrazzo Polisher: None. Estimated Blood Loss: <1 cc. Specimen: 3000 cc of clear yellow [...] marked, and the anterior abdominal wall was evalu ated with color Doppler to exclude presence of blood vessels traversing the area, the skin was prepped and draped in the usual sterile manner. After local anesthesia was achieved with 1% lidocaine, a 5French one-step catheter was advanced into the peritoneal cavity under ultrasound guidance. After completion of drainage, the catheter was removed. There was no evidence of complication. Impression:Successful ultrasound guided paracentesis. Signed: Vishnu Perez [facility] Verified Date/Time: 05/26/2018 16:05:11 Reading Location: [facility] Radiology Reading Room COMPREHENSIVE METABOLIC [id number] 05:55:00 Test Item Value Reference Range Interpretation Comments TOTAL PROTEIN 7.5 gm/dL 6.0-8.5 (BEAKER) (test code = 770) ALBUMIN (BEAKER) 3.9 g/dL 3.5-5.0 (test code = 1145) ALKALINE PHOSPHATASE 97 U/L 30-115 (BEAKER) (test code = 346) BILIRUBIN TOTAL 2.3 mg/dL 0.1-1.3 H (BEAKER) (test code = 377) SODIUM (BEAKER) (test 134 meq/L 135-148 L code = 381) POTASSIUM (BEAKER) 3.7 meq/L 3.5-5.5 (test code = 379) CHLORIDE (BEAKER) 105 meq/L 98-106 (test code = 382) CO2 (BEAKER) (test 16 meq/L 20-31 L code = 355) BLOOD UREA NITROGEN 25 mg/dL 10-26 (BEAKER) (test code = 354) CREATININE (BEAKER) 1.74 mg/dL 0.50-1.20 H (test code = 358) GLUCOSE RANDOM 116 mg/dL 70-110 H (BEAKER) (test code = 652) CALCIUM (BEAKER) 9.6 mg/dL 8.5-10.5 (test code = 697) AST (SGOT) (BEAKER) 44 U/L 5-40 H (test code = 353) ALT (SGPT) (BEAKER) 23 U/L 6-50 (test code = 347) EGFR (BEAKER) (test 31 mL/min/1.73 ESTIMA CLARK GFR IS code = 1092) sq m NOT ACCURATE CREATININE CLEARANCE IN PREDICTING GLOMERULAR FILTRATION RATE . ESTIMATED GFR I S NOT APPLICABLE FOR DIALYSIS PATIEN TS. [id number] 05:51:00 Test Item Value Reference Range Interpretation Comments POTASSIUM (BEAKER) (test code = 3.7 meq/L 3.5-5.5 379) [id number] 05:51:00 Test Item Value Reference Range Interpretation Comments MAGNESIUM (BEAKER) (test code = 2.1 mg/dL 1.5-3.0 627) [id number] 05:31:00 Test Item Value Reference Range Interpretation Comments AMMONIA (BEAKER) (test code = 348) 134 mol/L 12-72 H URINE [id number] 12:48:00 Test Item Value Reference Range Interpretation Comments CULTURE (BEAKER) (test code = 1095) No growth BASIC METABOLIC [id number] 04:24:00 Test Item Value Reference Range Interpretation Comments SODIUM (BEAKER) 131 meq/L 135-148 L (test code = 381) POTASSIUM (BEAKER) 3.5 meq/L 3.5-5.5 (test code = 379) CHLORIDE (BEAKER) 103 meq/L 98-106 (test code = 382) CO2 (BEAKER) (test 17 meq/L 20-31 L code = 355) BLOOD UREA NITROGEN 27 mg/dL 10-26 H (BEAKER) (test code = 354) CREATININE (BEAKER) 2.29 mg/dL 0.50-1.20 H (test code = 358) GLUCOSE RANDOM 93 mg/dL 70-110 (BEAKER) (test code = 652) CALCIUM (BEAKER) 9.2 mg/dL 8.5-10.5 (test code = 697) EGFR (BEAKER) (test 23 mL/min/1.73 ESTIMA CLARK GFR IS code = 1092) sq m NOT ACCURATE CREATININE CLEARANCE IN PREDICTING GLOMERULAR FILTRATION RATE . ESTIMATED GFR I S NOT APPLICABLE FOR DIALYSIS PATIEN TS. CBC W/PLT COUNT & AUTO [id number] 03:55:00 Test Item Value Reference Range Interpretation Comments WHITE BLOOD CELL COUNT 4.5 K/ L 4.0-10.0 (BEAKER) (test code = 775) RED BLOOD CELL COUNT 3.28 M/ L 4.00-5.00 L (BEAKER) (test code = 761) HEMOGLOBIN (BEAKER) 10.0 GM/DL 12.0-15.5 L (test code = 410) HEMATOCRIT (BEAKER) 29.9 % 36.0-46.0 L (test code = 411) MEAN CORPUSCULAR VOLUME 91.2 fL 82.0-99.0 (BEAKER) (test code = 753) MEAN CORPUSCULAR 30.5 pg 27.0-33.0 HEMOGLOBIN (BEAKER) (test code = 751) MEAN CORPUSCULAR 33.4 GM/DL 32.0-36.0 HEMOGLOBIN CONC (BEAKER) (test code = 752) RED CELL DISTRIBUTION 17.4 % 12.0-15.0 H WIDTH (BEAKER) (test code = 412) PLATELET COUNT (BEAKER) 105 K/CU MM 150-430 L (test code = 756) MEAN PLATELET VOLUME 10.5 fL 6.0-11.5 MPV-Robin roximately (BEAKER) (test code = 20% po sitive bias 754) due to method change. NUCLEATED RED BLOOD 0 /100 WBC 0-0 CELLS (BEAKER) (test code = 413) NEUTROPHILS RELATIVE 71 % PERCENT (BEAKER) (test code = 429) LYMPHOCYTES RELATIVE 8 % PERCENT (BEAKER) (test code = 430) MONOCYTES RELATIVE 13 % PERCENT (BEAKER) (test code = 431) EOSINOPHILS RELATIVE 6 % PERCENT (BEAKER) (test code = 432) BASOPHILS RELATIVE 1 % PERCENT (BEAKER) (test code = 437) NEUTROPHILS ABSOLUTE 3.22 K/ L 1.80-8.00 COUNT (BEAKER) (test code = 670) LYMPHOCYTES ABSOLUTE 0.38 K/ L 1.48-4.50 L COUNT (BEAKER) (test code = 414) MONOCYTES ABSOLUTE 0.57 K/ L 0.00-1.30 COUNT (BEAKER) (test code = 415) EOSINOPHILS ABSOLUTE 0.29 K/ L 0.00-0.50 COUNT (BEAKER) (test code = 416) BASOPHILS ABSOLUTE 0.05 K/ L 0.00-0.20 COUNT (BEAKER) (test code = 417) IMMATURE 0 % 0-0 GRANULOCYTES-RELATIVE PERCENT (BEAKER) (test code = 2801) HEPATITIS PANEL, [id number] 20:47:00 Test Item Value Reference Range Interpretation Comments HEPATITIS A IGM ANTIBODY (BEAKER) Nonreactive Nonreactive (test code = 498) HEPATITIS B CORE IGM ANTIBODY Nonreactive Nonreactive (BEAKER) (test code = 645) HEPATITIS C ANTIBODY (BEAKER) Nonreactive Nonreactive (test code = 367) HEPATITIS B SURFACE ANTIGEN (2) Nonreactive Nonreactive (BEAKER) (test code = 2585) ALPHA FETOPROTEIN (AFP), TUMOR [id number] 19:52:00 Test Item Value Reference Range Interpretation Comments ALPHA-FETOPROTEIN (BEAKER) (test 5.5 ng/mL <10.0 code = 1094) CREATININE, RANDOM [id number] 14:08:00 Test Item Value Reference Range Interpretation Comments CREATININE URINE (BEAKER) (test 42.7 mg/dL code = 375) Reference Range: No NormalsSODIUM, RANDOM [id number] 14:08:00 Test Item Value Reference Range Interpretation Comments SODIUM URINE (BEAKER) (test code = 28 meq/L 243) Reference Range: No NormalsOCCULT BLOOD, [id number] 13:56:00 Test Item Value Reference Range Interpretation Comments FECAL OCCULT BLOOD (BEAKER) (test Positive Negative A code = 618) U/S, RENAL, [id number] 11:53:00Reason for exam:->akiFINAL REPORT RENAL ULTRASOUND HISTORY: Acute kidney injury COMPARISON: Abdominal ultrasound 02/11/2018 TECHNIQUE: Real-time ultrasound of the kidneys was performed. FINDINGS: The kidneys are normal in size. The right kidney measures 11.6 cm in length and the left kidney measures 11.1 cm in length. Renal cortical thickness measures 1.1 cm on the right and 1.6 cm on the left. Renal e chogenicity appears mildly increased bilaterally suggestive of chronic renal parenchymal disease. Norenal mass lesion. No hydronephrosis or calculi are seen. Limited Doppler evaluation of the bilateral main renal arteries and veins demonstrated patency. The bladder is unremarkable. Incidental note ismade of cirrhosis with ascites. IMPRESSION: 1. No acute ultrasound abnormalities are visualized in the kidneys. 2. Increased renal echogenicity bilaterally suggestive of chronic renal parenchymal disease. Signed: Mariel Greenberg MDReport Verified Date/Time: 05/24/2018 11:53:08 Reading Location: [address] Transitional Reading Room BASIC METABOLIC [id number] 05:13:00 Test Item Value Reference Range Interpretation Comments SODIUM (BEAKER) 131 meq/L 135-148 L (test code = 381) POTASSIUM (BEAKER) 2.8 meq/L 3.5-5.5 LL (test code = 379) CHLORIDE (BEAKER) 101 meq/L 98-106 (test code = 382) CO2 (BEAKER) (test 17 meq/L 20-31 L code = 355) BLOOD UREA NITROGEN 28 mg/dL 10-26 H (BEAKER) (test code = 354) CREATININE (BEAKER) 2.85 mg/dL 0.50-1.20 H (test code = 358) GLUCOSE RANDOM 91 mg/dL 70-110 (BEAKER) (test code = 652) CALCIUM (BEAKER) 9.0 mg/dL 8.5-10.5 (test code = 697) EGFR (BEAKER) (test 18 mL/min/1.73 ESTIMA CLARK GFR IS code = 1092) sq m NOT ACCURATE CREATININE CLEARANCE IN PREDICTING GLOMERULAR FILTRATION RATE . ESTIMATED GFR I S NOT APPLICABLE FOR DIALYSIS PATIEN TS. CBC W/PLT COUNT & AUTO [id number] 04:39:00 Test Item Value Reference Range Interpretation Comments WHITE BLOOD CELL COUNT 5.4 K/ L 4.0-10.0 (BEAKER) (test code = 775) RED BLOOD CELL COUNT 2.26 M/ L 4.00-5.00 L (BEAKER) (test code = 761) HEMOGLOBIN (BEAKER) 7.2 GM/DL 12.0-15.5 L (test code = 410) HEMATOCRIT (BEAKER) 21.3 % 36.0-46.0 L (test code = 411) MEAN CORPUSCULAR VOLUME 94.2 fL 82.0-99.0 (BEAKER) (test code = 753) MEAN CORPUSCULAR 31.9 pg 27.0-33.0 HEMOGLOBIN (BEAKER) (test code = 751) MEAN CORPUSCULAR 33.8 GM/DL 32.0-36.0 HEMOGLOBIN CONC (BEAKER) (test code = 752) RED CELL DISTRIBUTION 17.1 % 12.0-15.0 H WIDTH (BEAKER) (test code = 412) PLATELET COUNT (BEAKER) 98 K/CU MM 150-430 L (test code = 756) MEAN PLATELET VOLUME 10.4 fL 6.0-11.5 MPV-Robin roximately (BEAKER) (test code = 20% po sitive bias 754) due to method change. NUCLEATED RED BLOOD 0 /100 WBC 0-0 CELLS (BEAKER) (test code = 413) NEUTROPHILS RELATIVE 77 % PERCENT (BEAKER) (test code = 429) LYMPHOCYTES RELATIVE 7 % PERCENT (BEAKER) (test code = 430) MONOCYTES RELATIVE 10 % PERCENT (BEAKER) (test code = 431) EOSINOPHILS RELATIVE 5 % PERCENT (BEAKER) (test code = 432) BASOPHILS RELATIVE 1 % PERCENT (BEAKER) (test code = 437) NEUTROPHILS ABSOLUTE 4.15 K/ L 1.80-8.00 COUNT (BEAKER) (test code = 670) LYMPHOCYTES ABSOLUTE 0.35 K/ L 1.48-4.50 L COUNT (BEAKER) (test code = 414) MONOCYTES ABSOLUTE COUNT 0.55 K/ L 0.00-1.30 (BEAKER) (test code = 415) EOSINOPHILS ABSOLUTE 0.27 K/ L 0.00-0.50 COUNT (BEAKER) (test code = 416) BASOPHILS ABSOLUTE COUNT 0.04 K/ L 0.00-0.20 (BEAKER) (test code = 417) IMMATURE 0 % 0-0 GRANULOCYTES-RELATIVE PERCENT (BEAKER) (test code = 2801) BASIC METABOLIC [id number] 19:11:00 Test Item Value Reference Range Interpretation Comments SODIUM (BEAKER) 130 meq/L 135-148 L (test code = 381) POTASSIUM (BEAKER) 3.8 meq/L 3.5-5.5 Specimen slightly (test code = 379) hemolyzed CHLORIDE (BEAKER) 100 meq/L 98-106 (test code = 382) CO2 (BEAKER) (test 17 meq/L 20-31 L code = 355) BLOOD UREA NITROGEN 27 mg/dL 10-26 H (BEAKER) (test code = 354) CREATININE (BEAKER) 2.86 mg/dL 0.50-1.20 H Specimen slightly (test code = 358) hemolyzed GLUCOSE RANDOM 97 mg/dL 70-110 (BEAKER) (test code = 652) CALCIUM (BEAKER) 8.8 mg/dL 8.5-10.5 (test code = 697) EGFR (BEAKER) (test 18 mL/min/1.73 ESTIMA CLARK GFR IS code = 1092) sq m NOT ACCURATE CREATININE CLEARANCE IN PREDICTING GLOMERULAR FILTRATION RATE . ESTIMATED GFR I S NOT APPLICABLE FOR DIALYSIS PATIEN TS. CT, BRAIN, WITHOUT [id number] 17:56:00Reason for exam:->ALTERED MENTAL STATUSReason for exam:->BLOATEDReason [...] iterated reconstruction technique. COMPARISON: None available FINDINGS: Thereis no hemorrhage, extra-axial collection, mass, hydrocephalus, or midline shift. There is no CT evidence for cerebral infarction. There is generalized parenchymal volume loss. The visualized paranasal sinuses and mastoid air cells are well aerated. The skull is intact. IMPRESSION: No intracranial hemorrhage or mass effect. If concern for acute pathology persists, further evaluation with MRI is recommended. Signed: Georgia Silver Verified Date/Time: 05/23/2018 17:56:33 Reading Location: [facility] Radiology Reading [facility] [id number] 16:54:00 Test Item Value Reference Range Interpretation Comments TOTAL PROTEIN 7.2 gm/dL 6.0-8.5 Specimen sligh tly (BEAKER) (test code = hemoly zed 770) ALBUMIN (BEAKER) 3.5 g/dL 3.5-5.0 Specimen sl ightly (test code = 1145) hemolyzed ALKALINE PHOSPHATASE 122 U/L 30-115 H (BEAKER) (test code = 346) BILIRUBIN TOTAL 1.5 mg/dL 0.1-1.3 H Specimen sli ghtly (BEAKER) (test code = hemoly zed 377) SODIUM (BEAKER) (test 131 meq/L 135-148 L code = 381) POTASSIUM (BEAKER) 2.9 meq/L 3.5-5.5 LL Specimen slightly (test code = 379) hemolyzed CHLORIDE (BEAKER) 101 meq/L 98-106 (test code = 382) CO2 (BEAKER) (test 16 meq/L 20-31 L code = 355) BLOOD UREA NITROGEN 27 mg/dL 10-26 H (BEAKER) (test code = 354) CREATININE (BEAKER) 2.98 mg/dL 0.50-1.20 H Specimen slightly (test code = 358) hemolyzed GLUCOSE RANDOM 99 mg/dL 70-110 (BEAKER) (test code = 652) CALCIUM (BEAKER) 8.9 mg/dL 8.5-10.5 (test code = 697) AST (SGOT) (BEAKER) 53 U/L 5-40 H Specimen slightly (test code = 353) hemolyzed ALT (SGPT) (BEAKER) 23 U/L 6-50 Specimen slightly (test code = 347) hemolyzed EGFR (BEAKER) (test 17 mL/min/1.73 ESTIMA CLARK GFR IS code = 1092) sq m NOT ACCURATE CREATININE CLEARANCE IN PREDICTING GLOMERULAR FILTRATION RATE . ESTIMATED GFR I S NOT APPLICABLE FOR DIALYSIS PATIEN TS. [id number] 16:38:00 Test Item Value Reference Range Interpretation Comments LIPASE (BEAKER) (test code = 749) 82 U/L 8-78 H PROTHROMBIN [id number] 16:28:00 Test Item Value Reference Range Interpretation Comments PROTIME (BEAKER) (test code = 16.1 seconds 11.8-14.4 H 759) INR (BEAKER) (test code = 370) 1.3 1.2-1.5 RECOMMENDED COUMADIN/WARFARIN INR THERAPY RANGESSTANDARD DOSE: 2.0 - 3.0 Includes: PROPHYLAXIS for venous thrombosis, systemic embolization; TREATMENT for venous thrombosis and/or pulmonary embolus.HIGH RISK: Target INR is 2.5-3.5 for patients with mechanical heart valves.CBC W/PLT COUNT & AUTO [id number] 16:26:00 Test Item Value Reference Range Interpretation Comments WHITE BLOOD CELL COUNT 7.1 K/ L 4.0-10.0 (BEAKER) (test code = 775) RED BLOOD CELL COUNT 2.50 M/ L 4.00-5.00 L (BEAKER) (test code = 761) HEMOGLOBIN (BEAKER) 8.0 GM/DL 12.0-15.5 L (test code = 410) HEMATOCRIT (BEAKER) 24.1 % 36.0-46.0 L (test code = 411) MEAN CORPUSCULAR VOLUME 96.4 fL 82.0-99.0 (BEAKER) (test code = 753) MEAN CORPUSCULAR 32.0 pg 27.0-33.0 HEMOGLOBIN (BEAKER) (test code = 751) MEAN CORPUSCULAR 33.2 GM/DL 32.0-36.0 HEMOGLOBIN CONC (BEAKER) (test code = 752) RED CELL DISTRIBUTION 17.3 % 12.0-15.0 H WIDTH (BEAKER) (test code = 412) PLATELET COUNT (BEAKER) 115 K/CU MM 150-430 L (test code = 756) MEAN PLATELET VOLUME 11.3 fL 6.0-11.5 MPV-Robin roximately (BEAKER) (test code = 20% po sitive bias 754) due to method change. NUCLEATED RED BLOOD 0 /100 WBC 0-0 CELLS (BEAKER) (test code = 413) NEUTROPHILS RELATIVE 90 % PERCENT (BEAKER) (test code = 429) LYMPHOCYTES RELATIVE 4 % PERCENT (BEAKER) (test code = 430) MONOCYTES RELATIVE 4 % PERCENT (BEAKER) (test code = 431) EOSINOPHILS RELATIVE 1 % PERCENT (BEAKER) (test code = 432) BASOPHILS RELATIVE 1 % PERCENT (BEAKER) (test code = 437) NEUTROPHILS ABSOLUTE 6.34 K/ L 1.80-8.00 COUNT (BEAKER) (test code = 670) LYMPHOCYTES ABSOLUTE 0.25 K/ L 1.48-4.50 L COUNT (BEAKER) (test code = 414) MONOCYTES ABSOLUTE 0.30 K/ L 0.00-1.30 COUNT (BEAKER) (test code = 415) EOSINOPHILS ABSOLUTE 0.10 K/ L 0.00-0.50 COUNT (BEAKER) (test code = 416) BASOPHILS ABSOLUTE 0.04 K/ L 0.00-0.20 COUNT (BEAKER) (test code = 417) IMMATURE 0 % 0-0 GRANULOCYTES-RELATIVE PERCENT (BEAKER) (test code = 2801) RAD, CHEST, 1 VIEW, NON [id number] 16:22:00Reason for exam:->altered mental statusShould this be performed at the bedside?->YesIs the patient ?->NoFINAL REPORT CHEST AP PORTABLE History provided: Altered mental status Heart size normal. Lungs clear and vascularity normal. IMPRESSION: Clear chest. Signed: Bruno Serrano MDReportVerified Date/Time: 05/23/2018 16:22:47 Reading Location: [facility] Radiology Reading Room URINALYSIS W/ [id number] 16:19:00 Test Item Value Reference Range Interpretation Comments COLOR (BEAKER) (test code = 470) Yellow CLARITY (BEAKER) (test code = 469) Hazy SPECIFIC GRAVITY UA (BEAKER) (test 1.016 1.001-1.035 code = 468) PH UA (BEAKER) (test code = 467) 5.0 5.0-8.0 PROTEIN UA (BEAKER) (test code = Negative Negative 464) GLUCOSE UA (BEAKER) (test code = Negative Negative 365) KETONES UA (BEAKER) (test code = Negative Negative 371) BILIRUBIN UA (BEAKER) (test code = Negative Negative 462) BLOOD UA (BEAKER) (test code = 461) Negative Negative NITRITE UA (BEAKER) (test code = Negative Negative 465) LEUKOCYTE ESTERASE UA (BEAKER) (test Negative Negative code = 466) UROBILINOGEN UA (BEAKER) (test code < mg/dL 0.2-1.0 = 463) RBC UA (BEAKER) (test code = 519) 1 /HPF WBC UA (BEAKER) (test code = 520) 1 /HPF BACTERIA (BEAKER) (test code = 517) Rare MUCUS (BEAKER) (test code = 1574) Rare SQUAMOUS EPITHELIAL (BEAKER) (test < /HPF code = 516) HYALINE CASTS (BEAKER) (test code = 4 /LPF 514) SOURCE(BEAKER) (test code = 2795) LACTIC ACID, VENOUS, WHOLE [id number] 16:12:00 Test Item Value Reference Range Interpretation Comments LACTATE BLOOD VENOUS 2.0 mmol/L 0.5-2.2 Specime n moderately (2) (BEAKER) (test hemolyzed code = 2872) Effective 12/07/2015: Units/Reference Range ChangeNew: 0.5-2.2 mmol/L Previous: 5- 20 mg/[id number] 16:07:00 Test Item Value Reference Range Interpretation Comments AMMONIA (BEAKER) 90 mol/L 12-72 H Specimen mo derately (test code = 348) hemolyzed AFB CULTURE + [id number] 00:02:00 Test Item Value Reference Range Interpretation Comments CULTURE (BEAKER) (test No acid-fast bacilli code = 1095) isolated in 42 days AFB SMEAR (BEAKER) No acid fast bacilli (test code = 994) seen FUNGUS CULTURE + [id number] 12:57:00 Test Item Value Reference Range Interpretation Comments CULTURE (BEAKER) (test No fungus isolated in code = 1095) 28 days FUNGUS SMEAR (BEAKER) No fungi seen (test code = 1406) BODY FLUID CULTURE + GRAM [id number] 05:31:00 Test Item Value Reference Range Interpretation Comments CULTURE (BEAKER) (test code No growth = 1095) GRAM STAIN RESULT (BEAKER) <1+ WBCs (test code = 1123) GRAM STAIN RESULT (BEAKER) No organisms seen (test code = 43026) ANAEROBIC [id number] 02:42:00 Test Item Value Reference Range Interpretation Comments CULTURE (BEAKER) (test No anaerobes isolated code = 1095) POCT-GLUCOSE [id number] 13:58:00 Test Item Value Reference Range Interpretation Comments POC-GLUCOSE METER 119 mg/dL 70-110 H TESTED AT [facility] 6720 (BEAKER) (test code = [place] 1538) [address] CBC W/PLT COUNT & AUTO [id number] 09:22:00 Test Item Value Reference Range Interpretation Comments WHITE BLOOD CELL COUNT (BEAKER) 5.1 K/ L 3.5-10.5 (test code = 775) RED BLOOD CELL COUNT (BEAKER) 2.79 M/ L 3.93-5.22 L (test code = 761) HEMOGLOBIN (BEAKER) (test code = 8.8 GM/DL 11.2-15.7 L 410) HEMATOCRIT (BEAKER) (test code = 27.2 % 34.1-44.9 L 411) MEAN CORPUSCULAR VOLUME (BEAKER) 97.5 fL 79.4-94.8 H (test code = 753) MEAN CORPUSCULAR HEMOGLOBIN 31.5 pg 25.6-32.2 (BEAKER) (test code = 751) MEAN CORPUSCULAR HEMOGLOBIN CONC 32.4 GM/DL 32.2-35.5 (BEAKER) (test code = 752) RED CELL DISTRIBUTION WIDTH 18.8 % 11.7-14.4 H (BEAKER) (test code = 412) PLATELET COUNT (BEAKER) (test code 86 K/CU MM 150-450 L = 756) MEAN PLATELET VOLUME (BEAKER) 12.6 fL 9.4-12.3 H (test code = 754) NUCLEATED RED BLOOD CELLS (BEAKER) 0 /100 WBC 0-0 (test code = 413) NEUTROPHILS RELATIVE PERCENT 73 % (BEAKER) (test code = 429) LYMPHOCYTES RELATIVE PERCENT 7 % (BEAKER) (test code = 430) MONOCYTES RELATIVE PERCENT 12 % (BEAKER) (test code = 431) EOSINOPHILS RELATIVE PERCENT 6 % (BEAKER) (test code = 432) BASOPHILS RELATIVE PERCENT 1 % (BEAKER) (test code = 437) NEUTROPHILS ABSOLUTE COUNT 3.63 K/ L 1.56-6.13 (BEAKER) (test code = 670) LYMPHOCYTES ABSOLUTE COUNT 0.36 K/ L 1.18-3.74 L (BEAKER) (test code = 414) MONOCYTES ABSOLUTE COUNT (BEAKER) 0.61 K/ L 0.24-0.36 H (test code = 415) EOSINOPHILS ABSOLUTE COUNT 0.31 K/ L 0.04-0.36 (BEAKER) (test code = 416) BASOPHILS ABSOLUTE COUNT (BEAKER) 0.06 K/ L 0.01-0.08 (test code = 417) IMMATURE GRANULOCYTES-RELATIVE 0 % 0-1 PERCENT (BEAKER) (test code = 2801) CBC (HEMOGRAM ONLY)2018-02-15 09:16:00 Test Item Value Reference Range Interpretation Comments WHITE BLOOD CELL COUNT (BEAKER) 5.1 K/ L 3.5-10.5 (test code = 775) RED BLOOD CELL COUNT (BEAKER) 2.79 M/ L 3.93-5.22 L (test code = 761) HEMOGLOBIN (BEAKER) (test code = 8.8 GM/DL 11.2-15.7 L 410) HEMATOCRIT (BEAKER) (test code = 27.2 % 34.1-44.9 L 411) MEAN CORPUSCULAR VOLUME (BEAKER) 97.5 fL 79.4-94.8 H (test code = 753) MEAN CORPUSCULAR HEMOGLOBIN 31.5 pg 25.6-32.2 (BEAKER) (test code = 751) MEAN CORPUSCULAR HEMOGLOBIN CONC 32.4 GM/DL 32.2-35.5 (BEAKER) (test code = 752) RED CELL DISTRIBUTION WIDTH 18.8 % 11.7-14.4 H (BEAKER) (test code = 412) PLATELET COUNT (BEAKER) (test code 86 K/CU MM 150-450 L = 756) MEAN PLATELET VOLUME (BEAKER) 12.6 fL 9.4-12.3 H (test code = 754) NUCLEATED RED BLOOD CELLS (BEAKER) 0 /100 WBC 0-0 (test code = 413) POCT-GLUCOSE [id number] 08:54:00 Test Item Value Reference Range Interpretation Comments POC-GLUCOSE METER 135 mg/dL 70-110 H TESTED AT [facility] 6720 (BEAKER) (test code = [facility] 1538) [address] [id number] 06:41:00 Test Item Value Reference Range Interpretation Comments PHOSPHORUS (BEAKER) (test code = 3.5 mg/dL 2.3-4.7 604) [id number] 06:41:00 Test Item Value Reference Range Interpretation Comments MAGNESIUM (BEAKER) (test code = 1.7 mg/dL 1.6-2.6 627) BASIC METABOLIC [id number] 06:41:00 Test Item Value Reference Range Interpretation Comments SODIUM (BEAKER) 136 meq/L 136-145 (test code = 381) POTASSIUM (BEAKER) 3.2 meq/L 3.5-5.1 L (test code = 379) CHLORIDE (BEAKER) 112 meq/L 98-107 H (test code = 382) CO2 (BEAKER) (test 14 meq/L 22-29 L code = 355) BLOOD UREA NITROGEN 14 mg/dL 7-21 (BEAKER) (test code = 354) CREATININE (BEAKER) 0.71 mg/dL 0.57-1.25 (test code = 358) GLUCOSE RANDOM 92 mg/dL 70-105 (BEAKER) (test code = 652) CALCIUM (BEAKER) 8.9 mg/dL 8.4-10.2 (test code = 697) EGFR (BEAKER) (test 88 mL/min/1.73 ESTIMA CLARK GFR IS code = 1092) sq m NOT ACCURATE CREATININE CLEARANCE IN PREDICTING GLOMERULAR FILTRATION RATE . ESTIMATED GFR I S NOT APPLICABLE FOR DIALYSIS PATIEN TS. HEPATIC FUNCTION [id number] 06:41:00 Test Item Value Reference Range Interpretation Comments TOTAL PROTEIN (BEAKER) (test code = 6.3 gm/dL 6.0-8.3 770) ALBUMIN (BEAKER) (test code = 1145) 3.9 g/dL 3.5-5.0 BILIRUBIN TOTAL (BEAKER) (test code 1.7 mg/dL 0.2-1.2 H = 377) BILIRUBIN DIRECT (BEAKER) (test 1.0 mg/dL 0.1-0.5 H code = 706) ALKALINE PHOSPHATASE (BEAKER) (test 126 U/L 40-150 code = 346) AST (SGOT) (BEAKER) (test code = 118 U/L 5-34 H 353) ALT (SGPT) (BEAKER) (test code = 56 U/L 6-55 H 347) BLOOD [id number] 06:00:00 Test Item Value Reference Range Interpretation Comments CULTURE (BEAKER) (test No growth in 5 days code = 1095) BLOOD [id number] 06:00:00 Test Item Value Reference Range Interpretation Comments CULTURE (BEAKER) (test No growth in 5 days code = 1095) POCT-GLUCOSE [id number] 21:33:00 Test Item Value Reference Range Interpretation Comments POC-GLUCOSE METER 126 mg/dL 70-110 H TESTED AT [facility] 6720 (BEAKER) (test code = [facility] [place] 1538) [address] BODY FLUID CELL COUNT WITH [id number] 20:39:00 Test Item Value Reference Range Interpretation Comments APPEARANCE FLUID (BEAKER) (test Bloody Clear A code = 510) COLOR FLUID (BEAKER) (test code Red Colorless, Straw A = 511) RBC FLUID (BEAKER) (test code = 15951 /cu mm <=1 H 513) ADJUSTED WBC FLUID (BEAKER) 206 /cu mm <=5 H (test code = 1691) LINING CELLS (BEAKER) (test 4 /cu mm <=1 H code = 1590) NEUTROPHILS FLUID (BEAKER) 50 % (test code = 1656) LYMPHS FLUID (BEAKER) (test 5 % code = 488) MONO/MACROPHAGE FLUID (BEAKER) 45 % (test code = 489) EOSINOPHILS FLUID (BEAKER) 0 % (test code = 491) BASO FLUID (BEAKER) (test code 0 % = 492) CONTAINER BODY FLUID (BEAKER) EDTA Tube (test code = 2873) TISSUE [id number] 18:33:00Surgical Pathology Report Case: [id number] Authorizing Provider: Tamera Mayorga MD Collected: 02/11/2018 1338 Ordering Location: [place] [address] ICU Received: 02/11/2018 1613 Pathologist: Herminia Hope MD Specimen: Hernia Sac, Umbilical SKIN AND HERNIA SAC, EXCISION:- SKIN WITH ULCER, NECROSIS, HERNIAWITH FIBROSIS, ADHESION AND CHRONIC INFLAMMATION Signing Pathologist Direct Phone Line: [phone] signed by Herminia Hope MD on 02/14/2018 at 6:33 [id number] umbilical hernia Hernia sac umbilical The specimen is received in a formalin-filled container labeled with the patient's information and labeled "umbilical hernial sac" and consists of hemorrhagic membranous tissue measuring 6 x 3 x 0.2 cm with overlying brown skin measuring 5.5 x 3 x 0.3 cm, submitted in A1 and A2. Thereare no areas of suspicion. CG/ew PerformedPOCT-GLUCOSE [id number] 18:27:00 Test Item Value Reference Range Interpretation Comments POC-GLUCOSE METER 152 mg/dL 70-110 H TESTED AT [facility] 6720 [facility] (test code = MAGGY [place] 1538) [address] U/S, [id number] 17:34:00Send fluid for cell ct \\T\\ diff, C\\T\\SReason for exam:->poss bile leakShould this be performed atthe bedside?->YesFINAL REPORT Paracentesis: Performing MD: Bela Rios M.D.Preoperative Diagnosis:AscitesPostoperative Diagnosis: AscitesAssistant: noneSpecimen: As requestedEstimated Blood Loss: less than 10 ccComplications: noneAnesthesia: local 2% subcutaneously at the insertion site Grafts or I mplants: noneModality: sonographySedation: noneApproach: Right lower quadrant, anterior abdominal wall Technique: [...] serosanguineous fluid was removed. Signed: Bela Rios Verified Date/Time:02/14/2018 17:34:56 Reading Location: [address] Ultrasound Reading Room [id number] 15:56:00 Test Item Value Reference Range Interpretation Comments PARTIAL THROMBOPLASTIN TIME 28.9 seconds 22.5-36.0 (BEAKER) (test code = 760) PROTHROMBIN [id number] 15:55:00 Test Item Value Reference Range Interpretation Comments PROTIME (BEAKER) (test code = 18.3 seconds 11.7-14.7 H 759) INR (BEAKER) (test code = 370) 1.5 <=5.9 RECOMMENDED COUMADIN/WARFARIN INR THERAPY RANGESSTANDARD DOSE: 2.0 - 3.0 Includes: PROPHYLAXIS for venous thrombosis, systemic embolization; TREATMENT for venous thrombosis and/or pulmonary embolus.HIGH RISK: Target INR is 2.5-3.5 for patients with mechanical heart valves.CBC W/PLT COUNT & AUTO [id number] 15:49:00 Test Item Value Reference Range Interpretation Comments WHITE BLOOD CELL COUNT (BEAKER) 6.5 K/ L 3.5-10.5 (test code = 775) RED BLOOD CELL COUNT (BEAKER) 2.69 M/ L 3.93-5.22 L (test code = 761) HEMOGLOBIN (BEAKER) (test code = 8.5 GM/DL 11.2-15.7 L 410) HEMATOCRIT (BEAKER) (test code = 25.9 % 34.1-44.9 L 411) MEAN CORPUSCULAR VOLUME (BEAKER) 96.3 fL 79.4-94.8 H (test code = 753) MEAN CORPUSCULAR HEMOGLOBIN 31.6 pg 25.6-32.2 (BEAKER) (test code = 751) MEAN CORPUSCULAR HEMOGLOBIN CONC 32.8 GM/DL 32.2-35.5 (BEAKER) (test code = 752) RED CELL DISTRIBUTION WIDTH 19.0 % 11.7-14.4 H (BEAKER) (test code = 412) PLATELET COUNT (BEAKER) (test code 63 K/CU MM 150-450 L = 756) MEAN PLATELET VOLUME (BEAKER) 11.6 fL 9.4-12.3 (test code = 754) NUCLEATED RED BLOOD CELLS (BEAKER) 0 /100 WBC 0-0 (test code = 413) NEUTROPHILS RELATIVE PERCENT 82 % (BEAKER) (test code = 429) LYMPHOCYTES RELATIVE PERCENT 4 % (BEAKER) (test code = 430) MONOCYTES RELATIVE PERCENT 9 % (BEAKER) (test code = 431) EOSINOPHILS RELATIVE PERCENT 3 % (BEAKER) (test code = 432) BASOPHILS RELATIVE PERCENT 1 % (BEAKER) (test code = 437) NEUTROPHILS ABSOLUTE COUNT 5.30 K/ L 1.56-6.13 (BEAKER) (test code = 670) LYMPHOCYTES ABSOLUTE COUNT 0.26 K/ L 1.18-3.74 L (BEAKER) (test code = 414) MONOCYTES ABSOLUTE COUNT (BEAKER) 0.59 K/ L 0.24-0.36 H (test code = 415) EOSINOPHILS ABSOLUTE COUNT 0.20 K/ L 0.04-0.36 (BEAKER) (test code = 416) BASOPHILS ABSOLUTE COUNT (BEAKER) 0.06 K/ L 0.01-0.08 (test code = 417) IMMATURE GRANULOCYTES-RELATIVE 1 % 0-1 PERCENT (BEAKER) (test code = 2801) POCT-GLUCOSE [id number] 13:10:00 Test Item Value Reference Range Interpretation Comments POC-GLUCOSE METER 138 mg/dL 70-110 H TESTED AT [facility] 6720 (BEAKER) ([facility] 1538[facility] [address] SURGICALLY OBTAINED CULTURE + GRAM [id number] 11:29:00 Test Item Value Reference Range Interpretation Comments CULTURE (BEAKER) (test code No growth = 1095) GRAM STAIN RESULT (BEAKER) <1+ WBCs (test code = 1123) GRAM STAIN RESULT (BEAKER) No organisms seen (test code = 15934) CBC W/PLT COUNT & AUTO [id number] 09:31:00 Test Item Value Reference Range Interpretation Comments WHITE BLOOD CELL COUNT (BEAKER) 5.3 K/ L 3.5-10.5 (test code = 775) RED BLOOD CELL COUNT (BEAKER) 2.76 M/ L 3.93-5.22 L (test code = 761) HEMOGLOBIN (BEAKER) (test code = 8.5 GM/DL 11.2-15.7 L 410) HEMATOCRIT (BEAKER) (test code = 26.7 % 34.1-44.9 L 411) MEAN CORPUSCULAR VOLUME (BEAKER) 96.7 fL 79.4-94.8 H (test code = 753) MEAN CORPUSCULAR HEMOGLOBIN 30.8 pg 25.6-32.2 (BEAKER) (test code = 751) MEAN CORPUSCULAR HEMOGLOBIN CONC 31.8 GM/DL 32.2-35.5 L (BEAKER) (test code = 752) RED CELL DISTRIBUTION WIDTH 19.1 % 11.7-14.4 H (BEAKER) (test code = 412) PLATELET COUNT (BEAKER) (test code 82 K/CU MM 150-450 L = 756) MEAN PLATELET VOLUME (BEAKER) 11.5 fL 9.4-12.3 (test code = 754) NUCLEATED RED BLOOD CELLS (BEAKER) 0 /100 WBC 0-0 (test code = 413) NEUTROPHILS RELATIVE PERCENT 79 % (BEAKER) (test code = 429) LYMPHOCYTES RELATIVE PERCENT 6 % (BEAKER) (test code = 430) MONOCYTES RELATIVE PERCENT 10 % (BEAKER) (test code = 431) EOSINOPHILS RELATIVE PERCENT 3 % (BEAKER) (test code = 432) BASOPHILS RELATIVE PERCENT 1 % (BEAKER) (test code = 437) NEUTROPHILS ABSOLUTE COUNT 4.21 K/ L 1.56-6.13 (BEAKER) (test code = 670) LYMPHOCYTES ABSOLUTE COUNT 0.33 K/ L 1.18-3.74 L (BEAKER) (test code = 414) MONOCYTES ABSOLUTE COUNT (BEAKER) 0.55 K/ L 0.24-0.36 H (test code = 415) EOSINOPHILS ABSOLUTE COUNT 0.17 K/ L 0.04-0.36 (BEAKER) (test code = 416) BASOPHILS ABSOLUTE COUNT (BEAKER) 0.05 K/ L 0.01-0.08 (test code = 417) IMMATURE GRANULOCYTES-RELATIVE 1 % 0-1 PERCENT (BEAKER) (test code = 2801) POCT-GLUCOSE [id number] 08:00:00 Test Item Value Reference Range Interpretation Comments POC-GLUCOSE METER 100 mg/dL 70-110 TESTED AT [place] [address] [facility] (test code = MAGGY [place] 1538) [address] [id number] 07:25:00 Test Item Value Reference Range Interpretation Comments PHOSPHORUS (BEAKER) (test code = 3.0 mg/dL 2.3-4.7 604) [id number] 07:25:00 Test Item Value Reference Range Interpretation Comments MAGNESIUM (BEAKER) (test code = 2.0 mg/dL 1.6-2.6 627) HEPATIC FUNCTION [id number] 07:25:00 Test Item Value Reference Range Interpretation Comments TOTAL PROTEIN (BEAKER) (test code = 6.5 gm/dL 6.0-8.3 770) ALBUMIN (BEAKER) (test code = 1145) 4.2 g/dL 3.5-5.0 BILIRUBIN TOTAL (BEAKER) (test code 1.7 mg/dL 0.2-1.2 H = 377) BILIRUBIN DIRECT (BEAKER) (test 1.1 mg/dL 0.1-0.5 H code = 706) ALKALINE PHOSPHATASE (BEAKER) (test 140 U/L 40-150 code = 346) AST (SGOT) (BEAKER) (test code = 182 U/L 5-34 H 353) ALT (SGPT) (BEAKER) (test code = 58 U/L 6-55 H 347) POCT-GLUCOSE [id number] 23:06:00 Test Item Value Reference Range Interpretation Comments POC-GLUCOSE METER 106 mg/dL 70-110 TESTED AT [place] [address] (BEAKER) (test code = [facility] [place] 1538) [address] POCT-GLUCOSE [id number] 17:34:00 Test Item Value Reference Range Interpretation Comments POC-GLUCOSE METER 149 mg/dL 70-110 H TESTED AT [place] [address] (BEAKER) (test code = [facility] [place] 1538) [address] POCT-GLUCOSE [id number] 11:39:00 Test Item Value Reference Range Interpretation Comments POC-GLUCOSE METER 117 mg/dL 70-110 H TESTED AT [facility] 6720 (BEAKER) (test code = MAG[place] 1538) [address] POCT-GLUCOSE [id number] 08:13:00 Test Item Value Reference Range Interpretation Comments POC-GLUCOSE METER 126 mg/dL 70-110 H TESTED AT [facility] 6720 (BEAKER) (test code = [facility] [place] 1538) [address] [id number] 06:41:00 Test Item Value Reference Range Interpretation Comments PHOSPHORUS (BEAKER) (test code = 2.1 mg/dL 2.3-4.7 L 604) [id number] 06:41:00 Test Item Value Reference Range Interpretation Comments MAGNESIUM (BEAKER) (test code = 2.1 mg/dL 1.6-2.6 627) HEPATIC FUNCTION [id number] 06:41:00 Test Item Value Reference Range Interpretation Comments TOTAL PROTEIN (BEAKER) (test code = 6.6 gm/dL 6.0-8.3 770) ALBUMIN (BEAKER) (test code = 1145) 4.5 g/dL 3.5-5.0 BILIRUBIN TOTAL (BEAKER) (test code 1.0 mg/dL 0.2-1.2 = 377) BILIRUBIN DIRECT (BEAKER) (test 0.6 mg/dL 0.1-0.5 H code = 706) ALKALINE PHOSPHATASE (BEAKER) (test 56 U/L 40-150 code = 346) AST (SGOT) (BEAKER) (test code = 51 U/L 5-34 H 353) ALT (SGPT) (BEAKER) (test code = 17 U/L 6-55 347) COMPREHENSIVE METABOLIC [id number] 06:41:00 Test Item Value Reference Range Interpretation Comments TOTAL PROTEIN 6.6 gm/dL 6.0-8.3 (BEAKER) (test code = 770) ALBUMIN (BEAKER) 4.5 g/dL 3.5-5.0 (test code = 1145) ALKALINE PHOSPHATASE 56 U/L 40-150 (BEAKER) (test code = 346) BILIRUBIN TOTAL 1.0 mg/dL 0.2-1.2 (BEAKER) (test code = 377) SODIUM (BEAKER) (test 138 meq/L 136-145 code = 381) POTASSIUM (BEAKER) 3.3 meq/L 3.5-5.1 L (test code = 379) CHLORIDE (BEAKER) 114 meq/L 98-107 H (test code = 382) CO2 (BEAKER) (test 15 meq/L 22-29 L code = 355) BLOOD UREA NITROGEN 15 mg/dL 7-21 (BEAKER) (test code = 354) CREATININE (BEAKER) 0.83 mg/dL 0.57-1.25 (test code = 358) GLUCOSE RANDOM 108 mg/dL 70-105 H (BEAKER) (test code = 652) CALCIUM (BEAKER) 9.0 mg/dL 8.4-10.2 (test code = 697) AST (SGOT) (BEAKER) 51 U/L 5-34 H (test code = 353) ALT (SGPT) (BEAKER) 17 U/L 6-55 (test code = 347) EGFR (BEAKER) (test 73 mL/min/1.73 ESTIMA CLARK GFR IS code = 1092) sq m NOT ACCURATE CREATININE CLEARANCE IN PREDICTING GLOMERULAR FILTRATION RATE . ESTIMATED GFR I S NOT APPLICABLE FOR DIALYSIS PATIEN TS. CBC W/PLT COUNT & AUTO [id number] 06:25:00 Test Item Value Reference Range Interpretation Comments WHITE BLOOD CELL COUNT (BEAKER) 6.7 K/ L 3.5-10.5 (test code = 775) RED BLOOD CELL COUNT (BEAKER) 2.17 M/ L 3.93-5.22 L (test code = 761) HEMOGLOBIN (BEAKER) (test code = 6.8 GM/DL 11.2-15.7 L 410) HEMATOCRIT (BEAKER) (test code = 21.8 % 34.1-44.9 L 411) MEAN CORPUSCULAR VOLUME (BEAKER) 100.5 fL 79.4-94.8 H (test code = 753) MEAN CORPUSCULAR HEMOGLOBIN 31.3 pg 25.6-32.2 (BEAKER) (test code = 751) MEAN CORPUSCULAR HEMOGLOBIN CONC 31.2 GM/DL 32.2-35.5 L (BEAKER) (test code = 752) RED CELL DISTRIBUTION WIDTH 19.9 % 11.7-14.4 H (BEAKER) (test code = 412) PLATELET COUNT (BEAKER) (test code 84 K/CU MM 150-450 L = 756) MEAN PLATELET VOLUME (BEAKER) 11.1 fL 9.4-12.3 (test code = 754) NUCLEATED RED BLOOD CELLS (BEAKER) 0 /100 WBC 0-0 (test code = 413) NEUTROPHILS RELATIVE PERCENT 84 % (BEAKER) (test code = 429) LYMPHOCYTES RELATIVE PERCENT 4 % (BEAKER) (test code = 430) MONOCYTES RELATIVE PERCENT 12 % (BEAKER) (test code = 431) EOSINOPHILS RELATIVE PERCENT 0 % (BEAKER) (test code = 432) BASOPHILS RELATIVE PERCENT 0 % (BEAKER) (test code = 437) NEUTROPHILS ABSOLUTE COUNT 5.59 K/ L 1.56-6.13 (BEAKER) (test code = 670) LYMPHOCYTES ABSOLUTE COUNT 0.25 K/ L 1.18-3.74 L (BEAKER) (test code = 414) MONOCYTES ABSOLUTE COUNT (BEAKER) 0.77 K/ L 0.24-0.36 H (test code = 415) EOSINOPHILS ABSOLUTE COUNT 0.02 K/ L 0.04-0.36 L (BEAKER) (test code = 416) BASOPHILS ABSOLUTE COUNT (BEAKER) 0.00 K/ L 0.01-0.08 L (test code = 417) IMMATURE GRANULOCYTES-RELATIVE 1 % 0-1 PERCENT (BEAKER) (test code = 2802) SPIN/CONCENTRATION [id number] 15:23:00 Test Item Value Reference Range Interpretation Comments CONCENTRATION CHARGED (BEAKER) (test Done code = 2657) POCT-GLUCOSE [id number] 08:15:00 Test Item Value Reference Range Interpretation Comments POC-GLUCOSE METER 147 mg/dL 70-110 H TESTED AT [facility] 6720 (BEAKER) (test code = CY[place] 1538) [address] HIV-1 ANTIGEN WITH HIV-1/2 [id number] 06:57:00 Test Item Value Reference Range Interpretation Comments HIV-1 ANTIGEN WITH HIV 1\\T\\2 Nonreactive Nonreactive ANTIBODY (2) (BEAKER) (test code = 2586) [id number] 06:35:00 Test Item Value Reference Range Interpretation Comments PHOSPHORUS (BEAKER) (test code = 2.8 mg/dL 2.3-4.7 604) [id number] 06:35:00 Test Item Value Reference Range Interpretation Comments MAGNESIUM (BEAKER) (test code = 1.9 mg/dL 1.6-2.6 627) BASIC METABOLIC [id number] 06:35:00 Test Item Value Reference Range Interpretation Comments SODIUM (BEAKER) 133 meq/L 136-145 L (test code = 381) POTASSIUM (BEAKER) 3.9 meq/L 3.5-5.1 (test code = 379) CHLORIDE (BEAKER) 111 meq/L 98-107 H (test code = 382) CO2 (BEAKER) (test 13 meq/L 22-29 L code = 355) BLOOD UREA NITROGEN 18 mg/dL 7-21 (BEAKER) (test code = 354) CREATININE (BEAKER) 0.86 mg/dL 0.57-1.25 (test code = 358) GLUCOSE RANDOM 142 mg/dL 70-105 H (BEAKER) (test code = 652) CALCIUM (BEAKER) 8.7 mg/dL 8.4-10.2 (test code = 697) EGFR (BEAKER) (test 70 mL/min/1.73 ESTIMA CLARK GFR IS code = 1092) sq m NOT ACCURATE CREATININE CLEARANCE IN PREDICTING GLOMERULAR FILTRATION RATE . ESTIMATED GFR I S NOT APPLICABLE FOR DIALYSIS PATIEN TS. HEPATIC FUNCTION [id number] 06:35:00 Test Item Value Reference Range Interpretation Comments TOTAL PROTEIN (BEAKER) (test code = 6.4 gm/dL 6.0-8.3 770) ALBUMIN (BEAKER) (test code = 1145) 4.0 g/dL 3.5-5.0 BILIRUBIN TOTAL (BEAKER) (test code 1.5 mg/dL 0.2-1.2 H = 377) BILIRUBIN DIRECT (BEAKER) (test 0.9 mg/dL 0.1-0.5 H code = 706) ALKALINE PHOSPHATASE (BEAKER) (test 46 U/L 40-150 code = 346) AST (SGOT) (BEAKER) (test code = 32 U/L 5-34 353) ALT (SGPT) (BEAKER) (test code = 12 U/L 6-55 347) CBC W/PLT COUNT & AUTO [id number] 06:26:00 Test Item Value Reference Range Interpretation Comments WHITE BLOOD CELL COUNT (BEAKER) 6.4 K/ L 3.5-10.5 (test code = 775) RED BLOOD CELL COUNT (BEAKER) 2.47 M/ L 3.93-5.22 L (test code = 761) HEMOGLOBIN (BEAKER) (test code = 7.5 GM/DL 11.2-15.7 L 410) HEMATOCRIT (BEAKER) (test code = 24.3 % 34.1-44.9 L 411) MEAN CORPUSCULAR VOLUME (BEAKER) 98.4 fL 79.4-94.8 H (test code = 753) MEAN CORPUSCULAR HEMOGLOBIN 30.4 pg 25.6-32.2 (BEAKER) (test code = 751) MEAN CORPUSCULAR HEMOGLOBIN CONC 30.9 GM/DL 32.2-35.5 L (BEAKER) (test code = 752) RED CELL DISTRIBUTION WIDTH 20.0 % 11.7-14.4 H (BEAKER) (test code = 412) PLATELET COUNT (BEAKER) (test code 85 K/CU MM 150-450 L = 756) MEAN PLATELET VOLUME (BEAKER) 11.3 fL 9.4-12.3 (test code = 754) NUCLEATED RED BLOOD CELLS (BEAKER) 0 /100 WBC 0-0 (test code = 413) NEUTROPHILS RELATIVE PERCENT 92 % (BEAKER) (test code = 429) LYMPHOCYTES RELATIVE PERCENT 3 % (BEAKER) (test code = 430) MONOCYTES RELATIVE PERCENT 5 % (BEAKER) (test code = 431) EOSINOPHILS RELATIVE PERCENT 0 % (BEAKER) (test code = 432) BASOPHILS RELATIVE PERCENT 0 % (BEAKER) (test code = 437) NEUTROPHILS ABSOLUTE COUNT 5.89 K/ L 1.56-6.13 (BEAKER) (test code = 670) LYMPHOCYTES ABSOLUTE COUNT 0.19 K/ L 1.18-3.74 L (BEAKER) (test code = 414) MONOCYTES ABSOLUTE COUNT (BEAKER) 0.31 K/ L 0.24-0.36 (test code = 415) EOSINOPHILS ABSOLUTE COUNT 0.00 K/ L 0.04-0.36 L (BEAKER) (test code = 416) BASOPHILS ABSOLUTE COUNT (BEAKER) 0.00 K/ L 0.01-0.08 L (test code = 417) IMMATURE GRANULOCYTES-RELATIVE 1 % 0-1 PERCENT (BEAKER) (test code = 8411) POCT-GLUCOSE [id number] 00:47:00 Test Item Value Reference Range Interpretation Comments POC-GLUCOSE METER 220 mg/dL 70-110 H TESTED AT [facility] [address] (BEAKER) (test code = [facility]38) [id number] 19:57:00 Test Item Value Reference Range Interpretation Comments PHOSPHORUS (BEAKER) (test code = 2.9 mg/dL 2.3-4.7 604) [id number] 19:57:00 Test Item Value Reference Range Interpretation Comments MAGNESIUM (BEAKER) (test code = 1.7 mg/dL 1.6-2.6 627) [id number] 16:27:00 Test Item Value Reference Range Interpretation Comments PROTIME (BEAKER) (test code = 18.7 seconds 11.7-14.7 H 759) INR (BEAKER) (test code = 370) 1.6 <=5.9 PARTIAL THROMBOPLASTIN TIME 36.5 seconds 22.5-36.0 H (BEAKER) (test code = 760) RECOMMENDED COUMADIN/WARFARIN INR THERAPY RANGESSTANDARD DOSE: 2.0 - 3.0 Includes: PROPHYLAXIS for venous thrombosis, systemic embolization; TREATMENT for venous thrombosis and/or pulmonary embolus.HIGH RISK: Target INR is 2.5-3.5 for patients with mechanical heart valves.BASIC METABOLIC [id number] 16:24:00 Test Item Value Reference Range Interpretation Comments SODIUM (BEAKER) 136 meq/L 136-145 (test code = 381) POTASSIUM (BEAKER) 3.7 meq/L 3.5-5.1 (test code = 379) CHLORIDE (BEAKER) 113 meq/L 98-107 H (test code = 382) CO2 (BEAKER) (test 16 meq/L 22-29 L code = 355) BLOOD UREA NITROGEN 20 mg/dL 7-21 (BEAKER) (test code = 354) CREATININE (BEAKER) 1.03 mg/dL 0.57-1.25 (test code = 358) GLUCOSE RANDOM 133 mg/dL 70-105 H (BEAKER) (test code = 652) CALCIUM (BEAKER) 8.2 mg/dL 8.4-10.2 L (test code = 697) EGFR (BEAKER) (test 57 mL/min/1.73 ESTIMA CLARK GFR IS code = 1092) sq m NOT ACCURATE CREATININE CLEARANCE IN PREDICTING GLOMERULAR FILTRATION RATE . ESTIMATED GFR I S NOT APPLICABLE FOR DIALYSIS PATIEN TS. CBC W/PLT COUNT & AUTO [id number] 16:00:00 Test Item Value Reference Range Interpretation Comments WHITE BLOOD CELL COUNT (BEAKER) 4.6 K/ L 3.5-10.5 (test code = 775) RED BLOOD CELL COUNT (BEAKER) 2.57 M/ L 3.93-5.22 L (test code = 761) HEMOGLOBIN (BEAKER) (test code = 7.9 GM/DL 11.2-15.7 L 410) HEMATOCRIT (BEAKER) (test code = 24.9 % 34.1-44.9 L 411) MEAN CORPUSCULAR VOLUME (BEAKER) 96.9 fL 79.4-94.8 H (test code = 753) MEAN CORPUSCULAR HEMOGLOBIN 30.7 pg 25.6-32.2 (BEAKER) (test code = 751) MEAN CORPUSCULAR HEMOGLOBIN CONC 31.7 GM/DL 32.2-35.5 L (BEAKER) (test code = 752) RED CELL DISTRIBUTION WIDTH 20.0 % 11.7-14.4 H (BEAKER) (test code = 412) PLATELET COUNT (BEAKER) (test 101 K/CU MM 150-450 L code = 756) MEAN PLATELET VOLUME (BEAKER) 10.5 fL 9.4-12.3 (test code = 754) NUCLEATED RED BLOOD CELLS 0 /100 WBC 0-0 (BEAKER) (test code = 413) NEUTROPHILS RELATIVE PERCENT 94 % (BEAKER) (test code = 429) LYMPHOCYTES RELATIVE PERCENT 3 % (BEAKER) (test code = 430) MONOCYTES RELATIVE PERCENT 2 % (BEAKER) (test code = 431) EOSINOPHILS RELATIVE PERCENT 1 % (BEAKER) (test code = 432) BASOPHILS RELATIVE PERCENT 1 % (BEAKER) (test code = 437) NEUTROPHILS ABSOLUTE COUNT 4.31 K/ L 1.56-6.13 (BEAKER) (test code = 670) LYMPHOCYTES ABSOLUTE COUNT 0.12 K/ L 1.18-3.74 L (BEAKER) (test code = 414) MONOCYTES ABSOLUTE COUNT (BEAKER) 0.10 K/ L 0.24-0.36 L (test code = 415) EOSINOPHILS ABSOLUTE COUNT 0.03 K/ L 0.04-0.36 L (BEAKER) (test code = 416) BASOPHILS ABSOLUTE COUNT (BEAKER) 0.03 K/ L 0.01-0.08 (test code = 417) IMMATURE GRANULOCYTES-RELATIVE 0 % 0-1 PERCENT (BEAKER) (test code = 2801) HGB/HCT (H&H) - STAT [id number] 13:33:00 Test Item Value Reference Range Interpretation Comments HEMOGLOBIN (BEAKER) (test code = 8.7 g/dL 12.0-15.0 L 410) HEMATOCRIT (BEAKER) (test code = 26.0 % 36.0-45.0 L 411) THIS IS A VENOUS SAMPLECALCIUM, [id number] 13:33:00 Test Item Value Reference Range Interpretation Comments CALCIUM IONIZED (BEAKER) (test 1.07 mmol/L 1.12-1.27 L code = 698) PH, BLOOD (BEAKER) (test code = 7.28 1810) GLUCOSE-STAT [id number] 13:33:00 Test Item Value Reference Range Interpretation Comments GLUCOSE RANDOM (BEAKER) (test code 122 mg/dL 70-110 H = 652) THIS IS A VENOUS SAMPLETHIS IS A VENOUS SAMPLETHIS IS A VENOUS SAMPLESODIUM NA- STAT [id number] 13:32:00 Test Item Value Reference Range Interpretation Comments SODIUM (BEAKER) (test code = 381) 135 meq/L 135-148 THIS IS A VENOUS SAMPLETHIS IS A VENOUS SAMPLETHIS IS A VENOUS SAMPLEPOTASSIUM- STAT [id number] 13:32:00 Test Item Value Reference Range Interpretation Comments POTASSIUM (BEAKER) (test code = 3.9 meq/L 3.6-5.5 379) THIS IS A VENOUS SAMPLETHIS IS A VENOUS SAMPLETHIS IS A VENOUS SAMPLEU/S, ABDOMINAL, [id number] 09:32:00Reason for exam:->ascites, acute renal failure, hydronephrosisShould this be performed at the bedside?->YesFINAL REPORT Abdominal Ultrasound Clinical Diagnosis: Ascites acute renal failure and hydronephrosis Comparison: No comparison ultrasounds Technique: Multiple transaxial and longitudinal images were obtained through the abdomen with real time ultrasonography. Five MHz transducer was utilized. 83 images were submitted for interpretation. Report:Liver: The liver measures 18.8 cm inthe right midaxillary line. There are no focal masses. The echogenicity is homogenous.Spleen: The spleen measures 15.1 cm. in the left mid axillary line. Gallbladder: The transverse diameter is 2.2 cm.The wall measures five mm. There are no [...] length without evidence of hydronephrosis.Left kidney: The left kidney measures 10.6 cm. in length without evidence of hydronephrosis.IVC/Aorta: Partially seen segments demonstrate no abnormality. Maximum transverse dimension the aorta is 2 cm Impression:Hepatosplenomegaly with moderate ascites. There is scalloping of the liver cortex consistent with cirrhosis.The gallbladder is not distended. Thickened wall is presumed secondary to hypoproteinemia. Signed: Bela Riosort Verified Date/Time: 02/11/2018 09:32:36 Reading Location: [address] Ultrasound Reading Room POCT-GLUCOSE [id number] 08:05:00 Test Item Value Reference Range Interpretation Comments POC-GLUCOSE METER 117 mg/dL 70-110 H TESTED AT [facility] ([facility]) (test code = [facility] 1538) [id number] COMPREHENSIVE METABOLIC [id number] 07:53:00 Test Item Value Reference Range Interpretation Comments TOTAL PROTEIN 6.1 gm/dL 6.0-8.3 ([facility]) (test code = 770) ALBUMIN ([facility]) 3.2 g/dL 3.5-5.0 L (test code = 1145) ALKALINE PHOSPHATASE 58 U/L 40-150 ([facility]) (test code = 346) BILIRUBIN TOTAL 1.6 mg/dL 0.2-1.2 H ([facility]) (test code = 377) SODIUM (BEAKER) (test 135 meq/L 136-145 L code = 381) POTASSIUM (BEAKER) 3.5 meq/L 3.5-5.1 (test code = 379) CHLORIDE (BEAKER) 111 meq/L 98-107 H (test code = 382) CO2 (BEAKER) (test 17 meq/L 22-29 L code = 355) BLOOD UREA NITROGEN 25 mg/dL 7-21 H (BEAKER) (test code = 354) CREATININE (BEAKER) 1.29 mg/dL 0.57-1.25 H (test code = 358) GLUCOSE RANDOM 110 mg/dL 70-105 H (BEAKER) (test code = 652) CALCIUM (BEAKER) 8.5 mg/dL 8.4-10.2 (test code = 697) AST (SGOT) (BEAKER) 39 U/L 5-34 H (test code = 353) ALT (SGPT) (BEAKER) 13 U/L 6-55 (test code = 347) EGFR (BEAKER) (test 44 mL/min/1.73 ESTIMA CLARK GFR IS code = 1092) sq m NOT ACCURATE CREATININE CLEARANCE IN PREDICTING GLOMERULAR FILTRATION RATE . ESTIMATED GFR I S NOT APPLICABLE FOR DIALYSIS PATIEN TS. CT, [id number] 07:50:00FINAL REPORT HISTORY : Hernia, complicated Technique: Multiple axial images of the abdomen and pelvis were performed without the administration of IV contrast from the lung bases to the pubic symphysis. This exam was performed according to our departmental dose optimization program which includes automated exposure control, adjustment of the mA and/or kV according to patient sizeand/or use of iterative reconstructive technique. COMPARISON : [...] seen within the hernias, however. No free airis identified in the abdomen or pelvis. There [...] or portal colopathy cannot be entirely excluded. Theappendix is visualized. There are no CT findings [...] portal colopathy or underdistention. 5. Cholelithiasis. Signed: Tyrell Mercerort Verified Date/Time: 02/11/2018 07:50:19 Reading Location: [facility] Diagnostic Imaging Reading Room - [place] [address] [id number] 07:06:00 Test Item Value Reference Range Interpretation Comments PROTIME (BEAKER) (test code = 17.3 seconds 11.7-14.7 H 759) INR (BEAKER) (test code = 370) 1.4 <=5.9 PARTIAL THROMBOPLASTIN TIME 34.7 seconds 22.5-36.0 (BEAKER) (test code = 760) RECOMMENDED COUMADIN/WARFARIN INR THERAPY RANGESSTANDARD DOSE: 2.0 - 3.0 Includes: PROPHYLAXIS for venous thrombosis, systemic embolization; TREATMENT for venous thrombosis and/or pulmonary embolus.HIGH RISK: Target INR is 2.5-3.5 for patients with mechanical heart valves.CBC W/PLT COUNT & AUTO [id number] 06:22:00 Test Item Value Reference Range Interpretation Comments WHITE BLOOD CELL COUNT (BEAKER) 4.1 K/ L 3.5-10.5 (test code = 775) RED BLOOD CELL COUNT (BEAKER) 2.36 M/ L 3.93-5.22 L (test code = 761) HEMOGLOBIN (BEAKER) (test code = 7.5 GM/DL 11.2-15.7 L 410) HEMATOCRIT (BEAKER) (test code = 22.9 % 34.1-44.9 L 411) MEAN CORPUSCULAR VOLUME (BEAKER) 97.0 fL 79.4-94.8 H (test code = 753) MEAN CORPUSCULAR HEMOGLOBIN 31.8 pg 25.6-32.2 (BEAKER) (test code = 751) MEAN CORPUSCULAR HEMOGLOBIN CONC 32.8 GM/DL 32.2-35.5 (BEAKER) (test code = 752) RED CELL DISTRIBUTION WIDTH 21.1 % 11.7-14.4 H (BEAKER) (test code = 412) PLATELET COUNT (BEAKER) (test 131 K/CU MM 150-450 L code = 756) MEAN PLATELET VOLUME (BEAKER) 11.0 fL 9.4-12.3 (test code = 754) NUCLEATED RED BLOOD CELLS 0 /100 WBC 0-0 (BEAKER) (test code = 413) NEUTROPHILS RELATIVE PERCENT 69 % (BEAKER) (test code = 429) LYMPHOCYTES RELATIVE PERCENT 11 % (BEAKER) (test code = 430) MONOCYTES RELATIVE PERCENT 15 % (BEAKER) (test code = 431) EOSINOPHILS RELATIVE PERCENT 4 % (BEAKER) (test code = 432) BASOPHILS RELATIVE PERCENT 1 % (BEAKER) (test code = 437) NEUTROPHILS ABSOLUTE COUNT 2.82 K/ L 1.56-6.13 (BEAKER) (test code = 670) LYMPHOCYTES ABSOLUTE COUNT 0.43 K/ L 1.18-3.74 L (BEAKER) (test code = 414) MONOCYTES ABSOLUTE COUNT (BEAKER) 0.60 K/ L 0.24-0.36 H (test code = 415) EOSINOPHILS ABSOLUTE COUNT 0.17 K/ L 0.04-0.36 (BEAKER) (test code = 416) BASOPHILS ABSOLUTE COUNT (BEAKER) 0.03 K/ L 0.01-0.08 (test code = 417) IMMATURE GRANULOCYTES-RELATIVE 1 % 0-1 PERCENT (BEAKER) (test code = 2801) POCT-GLUCOSE [id number] 00:49:00 Test Item Value Reference Range Interpretation Comments POC-GLUCOSE METER 95 mg/dL 70-110 TESTED AT [place] [address] (BEAKER) (test code = [place] [address] 1538) [id number] 21:49:00 Test Item Value Reference Range Interpretation Comments POTASSIUM (BEAKER) 3.9 meq/L 3.5-5.1 Specimen moderately (test code = 379) hemolyzed SODIUM, RANDOM [id number] 19:06:00 Test Item Value Reference Range Interpretation Comments SODIUM URINE (BEAKER) (test code = < meq/L 243) Reference Range: No NormalsCREATININE, RANDOM [id number] 19:02:00 Test Item Value Reference Range Interpretation Comments CREATININE URINE (BEAKER) (test 160.3 mg/dL code = 375) Reference Range: No NormalsPROTEIN, RANDOM [id number] 19:02:00 Test Item Value Reference Range Interpretation Comments PROTEIN, URINE (BEAKER) (test code = 19 mg/dL 0-14 H 1569) SCREEN, [id number] 18:47:00 Test Item Value Reference Range Interpretation Comments TEST URINE (BEAKER) (test Negative code = 583) POCT-GLUCOSE [id number] 18:08:00 Test Item Value Reference Range Interpretation Comments POC-GLUCOSE METER 183 mg/dL 70-110 H TESTED AT [place] [address] (BEAKER) (test code = [facility] 1538) [id number] 13:33:00 Test Item Value Reference Range Interpretation Comments POTASSIUM (BEAKER) (test code = 3.2 meq/L 3.5-5.1 L 379) CBC (HEMOGRAM ONLY)2018-02-10 13:20:00 Test Item Value Reference Range Interpretation Comments WHITE BLOOD CELL COUNT 4.6 K/ L 3.5-10.5 (BEAKER) (test code = 775) RED BLOOD CELL COUNT 2.47 M/ L 3.93-5.22 L (BEAKER) (test code = 761) HEMOGLOBIN (BEAKER) 7.6 GM/DL 11.2-15.7 L (test code = 410) HEMATOCRIT (BEAKER) 23.0 % 34.1-44.9 L (test code = 411) MEAN CORPUSCULAR 93.1 fL 79.4-94.8 Discordant from VOLUME (BEAKER) (test previo us results. code = 753) Clinical correl ation suggested. MEAN CORPUSCULAR 30.8 pg 25.6-32.2 HEMOGLOBIN (BEAKER) (test code = 751) MEAN CORPUSCULAR 33.0 GM/DL 32.2-35.5 HEMOGLOBIN CONC (BEAKER) (test code = 752) RED CELL DISTRIBUTION 20.5 % 11.7-14.4 H WIDTH (BEAKER) (test code = 412) PLATELET COUNT 111 K/CU MM 150-450 L (BEAKER) (test code = 756) MEAN PLATELET VOLUME 11.2 fL 9.4-12.3 (BEAKER) (test code = 754) NUCLEATED RED BLOOD 0 /100 WBC 0-0 CELLS (BEAKER) (test code = 413) POCT-GLUCOSE [id number] 11:51:00 Test Item Value Reference Range Interpretation Comments POC-GLUCOSE METER 123 mg/dL 70-110 H TESTED AT [place] [address] [facility] (test code = [place] 1538) [id number] POCT-GLUCOSE [id number] 06:46:00 Test Item Value Reference Range Interpretation Comments POC-GLUCOSE METER 237 mg/dL 70-110 H TESTED AT [place] [address] ([facility]) (test code = [place] 1538) [id number] CBC (HEMOGRAM ONLY)2018-02-10 06:44:00 Test Item Value Reference Range Interpretation Comments WHITE BLOOD CELL COUNT (BEAKER) 2.8 K/ L 3.5-10.5 L (test code = 775) RED BLOOD CELL COUNT (BEAKER) 2.34 M/ L 3.93-5.22 L (test code = 761) HEMOGLOBIN (BEAKER) (test code = 7.2 GM/DL 11.2-15.7 L 410) HEMATOCRIT (BEAKER) (test code = 22.8 % 34.1-44.9 L 411) MEAN CORPUSCULAR VOLUME (BEAKER) 97.4 fL 79.4-94.8 H (test code = 753) MEAN CORPUSCULAR HEMOGLOBIN 30.8 pg 25.6-32.2 (BEAKER) (test code = 751) MEAN CORPUSCULAR HEMOGLOBIN CONC 31.6 GM/DL 32.2-35.5 L (BEAKER) (test code = 752) RED CELL DISTRIBUTION WIDTH 20.3 % 11.7-14.4 H (BEAKER) (test code = 412) PLATELET COUNT (BEAKER) (test 102 K/CU MM 150-450 L code = 756) MEAN PLATELET VOLUME (BEAKER) 11.3 fL 9.4-12.3 (test code = 754) NUCLEATED RED BLOOD CELLS 0 /100 WBC 0-0 (BEAKER) (test code = 413) RAPID DRUG SCREEN, [id number] 06:12:00 Test Item Value Reference Range Interpretation Comments BARBITURATE URINE (BEAKER) (test Negative Negative code = 725) BENZODIAZEPINE SCREEN URINE (BEAKER) Negative Negative (test code = 726) COCAINE (METAB.) SCREEN (BEAKER) Negative Negative (test code = 1164) METHADONE SCREEN (BEAKER) (test code Negative Negative = 1436) OPIATE SCREEN URINE (BEAKER) (test Negative Negative code = 734) CANNABINOID SCREEN URINE (BEAKER) Negative Negative (test code = 727) AMPH/METHAMPH SCREEN (BEAKER) (test Negative Negative code = 1438) PHENCYCLIDINE SCREEN URINE (BEAKER) Negative Negative (test code = 608) OXYCODONE SCREEN URINE (BEAKER) Negative Negative (test code = 2761) DRUG CUTOFF CONC.Cocaine 300 ng/mL Cannabinoid 50 ng/mL Benzodiazepine 200 ng/mLBarbiturate 200 ng/mLPhencyclidine 25 ng/mLOpiate 300 ng/mLMethadone 300 ng/mLAmphetamine/ 1000 ng/mL MethamphetamineOxycodone 300 ng/mLThis assay provides an unconfirmed qualitative test result for the clinical management of patients in emergency situations. Chain of custody not maintained. Some lyhe-uff-tcnccby medications, as well as adulterants, may cause inaccurate results. Clinical correlation should be applied. Saira comprehensive drug screen or confirmation of a detected drug may be performed upon request.URINALYSIS W/ REFLEX URINE [id number] 04:33:00 Test Item Value Reference Range Interpretation Comments COLOR (BEAKER) (test code = 470) Yellow CLARITY (BEAKER) (test code = 469) Hazy SPECIFIC GRAVITY UA (BEAKER) (test 1.013 1.001-1.035 code = 468) PH UA (BEAKER) (test code = 467) 6.0 5.0-8.0 PROTEIN UA (BEAKER) (test code = 10 mg/dL Negative A 464) GLUCOSE UA (BEAKER) (test code = Negative Negative 365) KETONES UA (BEAKER) (test code = Trace Negative A 371) BILIRUBIN UA (BEAKER) (test code = Negative Negative 462) BLOOD UA (BEAKER) (test code = 461) Negative Negative NITRITE UA (BEAKER) (test code = Negative Negative 465) LEUKOCYTE ESTERASE UA (BEAKER) Negative Negative (test code = 466) UROBILINOGEN UA (BEAKER) (test code 0.2 mg/dL 0.2-1.0 = 463) RBC UA (BEAKER) (test code = 519) < /HPF WBC UA (BEAKER) (test code = 520) 2 /HPF BACTERIA (BEAKER) (test code = 517) Rare MUCUS (BEAKER) (test code = 1574) Rare SQUAMOUS EPITHELIAL (BEAKER) (test 8 /HPF code = 516) HYALINE CASTS (BEAKER) (test code = 70 /LPF 514) AMORPHOUS CRYSTALS (BEAKER) (test Rare code = 1584) SOURCE(BEAKER) (test code = 2795) BASIC METABOLIC [id number] 02:35:00 Test Item Value Reference Range Interpretation Comments SODIUM (BEAKER) 137 meq/L 136-145 (test code = 381) POTASSIUM (BEAKER) 2.9 meq/L 3.5-5.1 L (test code = 379) CHLORIDE (BEAKER) 109 meq/L 98-107 H (test code = 382) CO2 (BEAKER) (test 14 meq/L 22-29 L code = 355) BLOOD UREA NITROGEN 31 mg/dL 7-21 H (BEAKER) (test code = 354) CREATININE (BEAKER) 1.98 mg/dL 0.57-1.25 H (test code = 358) GLUCOSE RANDOM 146 mg/dL 70-105 H (BEAKER) (test code = 652) CALCIUM (BEAKER) 8.9 mg/dL 8.4-10.2 (test code = 697) EGFR (BEAKER) (test 27 mL/min/1.73 ESTIMA CLARK GFR IS code = 1092) sq m NOT ACCURATE CREATININE CLEARANCE IN PREDICTING GLOMERULAR FILTRATION RATE . ESTIMATED GFR I S NOT APPLICABLE FOR DIALYSIS PATIEN TS. [id number] 02:35:00 Test Item Value Reference Range Interpretation Comments MAGNESIUM (BEAKER) (test code = 2.0 mg/dL 1.6-2.6 627) HEPATIC FUNCTION [id number] 02:35:00 Test Item Value Reference Range Interpretation Comments TOTAL PROTEIN (BEAKER) (test code = 7.4 gm/dL 6.0-8.3 770) ALBUMIN (BEAKER) (test code = 1145) 3.8 g/dL 3.5-5.0 BILIRUBIN TOTAL (BEAKER) (test code 1.8 mg/dL 0.2-1.2 H = 377) BILIRUBIN DIRECT (BEAKER) (test 0.9 mg/dL 0.1-0.5 H code = 706) ALKALINE PHOSPHATASE (BEAKER) (test 73 U/L 40-150 code = 346) AST (SGOT) (BEAKER) (test code = 38 U/L 5-34 H 353) ALT (SGPT) (BEAKER) (test code = 14 U/L 6-55 347) BLOOD GAS, [id number] 02:34:00 Test Item Value Reference Range Interpretation Comments PH VENOUS (BEAKER) (test code = 7.42 7.32-7.42 701) PCO2 VENOUS (BEAKER) (test code = 28 mmHg 41-51 L 755) PO2 VENOUS (BEAKER) (test code = 34 mmHg 25-40 702) O2 SATURATION VENOUS (BEAKER) 67.6 % 40.0-70.0 (test code = 703) HCO3 VENOUS (BEAKER) (test code = 17 mmol/L 21-29 L 705) BASE EXCESS VENOUS (BEAKER) (test -6.2 mmol/L -2.0-3.0 L code = 704) PATIENT TEMPERATURE (BEAKER) 37.0 C (test code = 1818) [id number] 02:33:00 Test Item Value Reference Range Interpretation Comments PHOSPHORUS (BEAKER) (test code = 3.7 mg/dL 2.3-4.7 604) [id number] 02:33:00 Test Item Value Reference Range Interpretation Comments LIPASE (BEAKER) (test code = 749) 40 U/L 8-78 CREATINE KINASE (CK), TOTAL AND [id number] 02:30:00 Test Item Value Reference Range Interpretation Comments CREATINE KINASE TOTAL (BEAKER) 30 U/L 29-200 (test code = 380) CREATINE KINASE-MB (BEAKER) (test 0.4 ng/mL 0.0-6.6 code = 750) CREATINE KINASE-MB INDEX (BEAKER) 1.3 % (test code = 395) CK-MB Reference Range:<6.7 Normal6.7-10.0 Borderline>10.0 AbnormalTROPONIN [id number] 02:30:00 Test Item Value Reference Range Interpretation Comments TROPONIN I (BEAKER) (test code = 397) < ng/mL 0.00-0.03 Troponin I (TnI) levels [...] failure, acidosis, acute neurological disease, and persistent tachyarrhythmia.[id number] 02:19:00 Test Item Value Reference Range Interpretation Comments ETHANOL (BEAKER) (test code = 400) < mg/dL <=10 [id number] 02:17:00 Test Item Value Reference Range Interpretation Comments PARTIAL THROMBOPLASTIN TIME 32.8 seconds 22.5-36.0 (BEAKER) (test code = 760) LACTIC ACID, VENOUS, WHOLE [id number] 02:17:00 Test Item Value Reference Range Interpretation Comments LACTATE BLOOD VENOUS (2) (BEAKER) 1.2 mmol/L 0.5-2.2 (test code = 2872) Effective 12/07/2015: Units/Reference Range ChangeNew: 0.5-2.2 mmol/L Previous: 5- 20 mg/dLPROTHROMBIN [id number] 02:16:00 Test Item Value Reference Range Interpretation Comments PROTIME (BEAKER) (test code = 17.0 seconds 11.7-14.7 H 759) INR (BEAKER) (test code = 370) 1.4 <=5.9 RECOMMENDED COUMADIN/WARFARIN INR THERAPY RANGESSTANDARD DOSE: 2.0 - 3.0 Includes: PROPHYLAXIS for venous thrombosis, systemic embolization; TREATMENT for venous thrombosis and/or pulmonary embolus.HIGH RISK: Target INR is 2.5-3.5 for patients with mechanical heart valves.[id number] 02:16:00 Test Item Value Reference Range Interpretation Comments AMMONIA (BEAKER) (test code = 348) 75 mol/L 18-72 H [id number] 02:16:00 Test Item Value Reference Range Interpretation Comments FIBRINOGEN LEVEL (BEAKER) (test 372 mg/dl 225-434 code = 658) CBC W/PLT COUNT & AUTO [id number] 02:10:00 Test Item Value Reference Range Interpretation Comments WHITE BLOOD CELL COUNT (BEAKER) 4.0 K/ L 3.5-10.5 (test code = 775) RED BLOOD CELL COUNT (BEAKER) 2.78 M/ L 3.93-5.22 L (test code = 761) HEMOGLOBIN (BEAKER) (test code = 8.5 GM/DL 11.2-15.7 L 410) HEMATOCRIT (BEAKER) (test code = 25.8 % 34.1-44.9 L 411) MEAN CORPUSCULAR VOLUME (BEAKER) 92.8 fL 79.4-94.8 (test code = 753) MEAN CORPUSCULAR HEMOGLOBIN 30.6 pg 25.6-32.2 (BEAKER) (test code = 751) MEAN CORPUSCULAR HEMOGLOBIN CONC 32.9 GM/DL 32.2-35.5 (BEAKER) (test code = 752) RED CELL DISTRIBUTION WIDTH 18.7 % 11.7-14.4 H (BEAKER) (test code = 412) PLATELET COUNT (BEAKER) (test 110 K/CU MM 150-450 L code = 756) MEAN PLATELET VOLUME (BEAKER) 11.2 fL 9.4-12.3 (test code = 754) NUCLEATED RED BLOOD CELLS 0 /100 WBC 0-0 (BEAKER) (test code = 413) NEUTROPHILS RELATIVE PERCENT 92 % (BEAKER) (test code = 429) LYMPHOCYTES RELATIVE PERCENT 4 % (BEAKER) (test code = 430) MONOCYTES RELATIVE PERCENT 3 % (BEAKER) (test code = 431) EOSINOPHILS RELATIVE PERCENT 1 % (BEAKER) (test code = 432) BASOPHILS RELATIVE PERCENT 0 % (BEAKER) (test code = 437) NEUTROPHILS ABSOLUTE COUNT 3.69 K/ L 1.56-6.13 (BEAKER) (test code = 670) LYMPHOCYTES ABSOLUTE COUNT 0.14 K/ L 1.18-3.74 L (BEAKER) (test code = 414) MONOCYTES ABSOLUTE COUNT (BEAKER) 0.11 K/ L 0.24-0.36 L (test code = 415) EOSINOPHILS ABSOLUTE COUNT 0.03 K/ L 0.04-0.36 L (BEAKER) (test code = 416) BASOPHILS ABSOLUTE COUNT (BEAKER) 0.01 K/ L 0.01-0.08 (test code = 417) IMMATURE GRANULOCYTES-RELATIVE 1 % 0-1 PERCENT (BEAKER) (test code = 2801) ANTI-NUCLEAR ANTIBODY (LÓPEZ)[id number] 09:50:00 Test Item Value Reference Range Interpretation Comments ANTI-NUCLEAR ANTIBODY (LÓPEZ) (BEAKER) Positive Negative A (test code = 418) LÓPEZ TITER AND [id number] 09:50:00 Test Item Value Reference Range Interpretation Comments LÓPEZ TITER (BEAKER) (test code = :40 1541) LÓPEZ PATTERN (BEAKER) (test code = Speckled 1781) [id number] 15:34:00 Test Item Value Reference Range Interpretation Comments FERRITIN (BEAKER) (test code = 361) 237 ng/mL 5-275 HEPATITIS B SURFACE [id number] 14:54:00 Test Item Value Reference Range Interpretation Comments HEPATITIS B SURFACE ANTIBODY < mIU/mL <8.0 (BEAKER) (test code = 647) HEPATITIS B SURFACE [id number] 14:49:00 Test Item Value Reference Range Interpretation Comments HEPATITIS B SURFACE ANTIGEN (2) Nonreactive Nonreactive (BEAKER) (test code = 2585) HEPATITIS C [id number] 14:49:00 Test Item Value Reference Range Interpretation Comments HEPATITIS C ANTIBODY (BEAKER) Nonreactive Nonreactive (test code = 367) ALPHA FETOPROTEIN (AFP), TUMOR [id number] 14:48:00 Test Item Value Reference Range Interpretation Comments ALPHA-FETOPROTEIN (BEAKER) (test 4.9 ng/mL <10.0 code = 1094) HEPATITIS B CORE ANTIBODY, [id number] 14:48:00 Test Item Value Reference Range Interpretation Comments HEPATITIS B CORE TOTAL ANTIBODY Nonreactive Nonreactive (BEAKER) (test code = 497) HEPATITIS A ANTIBODY, [id number] 14:48:00 Test Item Value Reference Range Interpretation Comments HEPATITIS A IGG ANTIBODY (BEAKER) Nonreactive Nonreactive (test code = 2797) CBC W/PLT COUNT & AUTO [id number] 14:30:00 Test Item Value Reference Range Interpretation Comments WHITE BLOOD CELL COUNT (BEAKER) 5.2 K/ L 3.5-10.5 (test code = 775) RED BLOOD CELL COUNT (BEAKER) 2.96 M/ L 3.93-5.22 L (test code = 761) HEMOGLOBIN (BEAKER) (test code = 9.7 GM/DL 11.2-15.7 L 410) HEMATOCRIT (BEAKER) (test code = 31.0 % 34.1-44.9 L 411) MEAN CORPUSCULAR VOLUME (BEAKER) 104.7 fL 79.4-94.8 H (test code = 753) MEAN CORPUSCULAR HEMOGLOBIN 32.8 pg 25.6-32.2 H (BEAKER) (test code = 751) MEAN CORPUSCULAR HEMOGLOBIN CONC 31.3 GM/DL 32.2-35.5 L (BEAKER) (test code = 752) RED CELL DISTRIBUTION WIDTH 17.8 % 11.7-14.4 H (BEAKER) (test code = 412) PLATELET COUNT (BEAKER) (test code 92 K/CU MM 150-450 L = 756) MEAN PLATELET VOLUME (BEAKER) 10.3 fL 9.4-12.3 (test code = 754) NUCLEATED RED BLOOD CELLS (BEAKER) 0 /100 WBC 0-0 (test code = 413) NEUTROPHILS RELATIVE PERCENT 81 % (BEAKER) (test code = 429) LYMPHOCYTES RELATIVE PERCENT 6 % (BEAKER) (test code = 430) MONOCYTES RELATIVE PERCENT 9 % (BEAKER) (test code = 431) EOSINOPHILS RELATIVE PERCENT 3 % (BEAKER) (test code = 432) BASOPHILS RELATIVE PERCENT 1 % (BEAKER) (test code = 437) NEUTROPHILS ABSOLUTE COUNT 4.23 K/ L 1.56-6.13 (BEAKER) (test code = 670) LYMPHOCYTES ABSOLUTE COUNT 0.29 K/ L 1.18-3.74 L (BEAKER) (test code = 414) MONOCYTES ABSOLUTE COUNT (BEAKER) 0.49 K/ L 0.24-0.36 H (test code = 415) EOSINOPHILS ABSOLUTE COUNT 0.14 K/ L 0.04-0.36 (BEAKER) (test code = 416) BASOPHILS ABSOLUTE COUNT (BEAKER) 0.06 K/ L 0.01-0.08 (test code = 417) IMMATURE GRANULOCYTES-RELATIVE 0 % 0-1 PERCENT (BEAKER) (test code = 2801) COMPREHENSIVE METABOLIC [id number] 14:28:00 Test Item Value Reference Range Interpretation Comments TOTAL PROTEIN 7.6 gm/dL 6.0-8.3 (BEAKER) (test code = 770) ALBUMIN (BEAKER) 3.6 g/dL 3.5-5.0 (test code = 1145) ALKALINE PHOSPHATASE 144 U/L 40-150 (BEAKER) (test code = 346) BILIRUBIN TOTAL 1.1 mg/dL 0.2-1.2 (BEAKER) (test code = 377) SODIUM (BEAKER) (test 135 meq/L 136-145 L code = 381) POTASSIUM (BEAKER) 3.6 meq/L 3.5-5.1 (test code = 379) CHLORIDE (BEAKER) 103 meq/L 98-107 (test code = 382) CO2 (BEAKER) (test 22 meq/L 22-29 code = 355) BLOOD UREA NITROGEN 16 mg/dL 7-21 (BEAKER) (test code = 354) CREATININE (BEAKER) 1.82 mg/dL 0.57-1.25 H (test code = 358) GLUCOSE RANDOM 102 mg/dL 70-105 (BEAKER) (test code = 652) CALCIUM (BEAKER) 9.1 mg/dL 8.4-10.2 (test code = 697) AST (SGOT) (BEAKER) 39 U/L 5-34 H (test code = 353) ALT (SGPT) (BEAKER) 14 U/L 6-55 (test code = 347) EGFR (BEAKER) (test 30 mL/min/1.73 ESTIMA CLARK GFR IS code = 1092) sq m NOT ACCURATE CREATININE CLEARANCE IN PREDICTING GLOMERULAR FILTRATION RATE . ESTIMATED GFR I S NOT APPLICABLE FOR DIALYSIS PATIEN TS. BILIRUBIN, [id number] 14:28:00 Test Item Value Reference Range Interpretation Comments BILIRUBIN DIRECT (BEAKER) (test 0.6 mg/dL 0.1-0.5 H code = 706) IRON, TIBC, % SAT. (WITHOUT FERRITIN)[id number] 14:26:00 Test Item Value Reference Range Interpretation Comments IRON (BEAKER) (test code = 547) 37 ug/dL 40-160 L TOTAL IRON BINDING CAPACITY 219 ug/dL 250-450 L (BEAKER) (test code = 769) IRON % SATURATION (2) (BEAKER) 17 % 20-55 L (test code = 2590) [id number] 14:25:00 Test Item Value Reference Range Interpretation Comments ALPHA-1 ANTITRYPSIN (BEAKER) 151.80 mg/dL 90.00-200.00 (test code = 502) PROTHROMBIN TIME/[id number] 14:03:00 Test Item Value Reference Range Interpretation Comments PROTIME (BEAKER) (test code = 17.2 seconds 11.7-14.7 H 759) INR (BEAKER) (test code = 370) 1.4 <=5.9 RECOMMENDED COUMADIN/WARFARIN INR THERAPY RANGESSTANDARD DOSE: 2.0 - 3.0 Includes: PROPHYLAXIS for venous thrombosis, systemic embolization; TREATMENT for venous thrombosis and/or pulmonary embolus.HIGH RISK: Target INR is 2.5-3.5 for patients with mechanical heart valves. Notes Date/Time Note Provider Source 2019-05-02 14:37:00-00:00 [id number] [address] PATIENT NAME: AMAURI CAPELLAN ADMIT DATE: 9 ACCOUNT NO: [id number] ROOM NO: [facility] AGE: 48 REPORT TYPE: DISCHARGE SUMMARY SEX: F ADMITTING PHYSICIAN:May Dewitt MD ATTENDING PHYSICIAN:May Dewitt MD ADMISSION DATE: 04/27/2019 DISCHARGE DATE: 05/02/2019 PRIMARY CARE PHYSICIAN: In [facility] COURSE: This is a 48-year-old female tr ansferred from [facility] because of abdominal pain, nausea, vomit ing, hematemesis and black stools. The patient also had history of cirrhosis, a dmitted with diagnosis of septic shock with lactate of more than 6 and with cirrhosis and upper GI bleed with varices. GI was consulted, was started on broad-spectrum antibiotics, also had severe ascites. IR was consulted for paracentesis. The patient was seen by senior construction manager due to elevated troponin le vels and for preop evaluation prior to EGD. Had EGD done by Dr. South. PPI was continue d. The patient remained in ICU and later on she was able to be transferred out of ICU and has been improving. Had paracentesis by IR. Cultures stay ed negative. The patient was started on vancomycin for gram-positive cocci in blood, but at this time they came back as a contamination. All of the culture s came back as contamination. Repeat blood cultures are negative. Plan was to discharge the patient today. The patient had a paracentes is yesterday as well. Today, she really wants to go home. She states that she will leave AMA if not discharged. She is cleared by cardiology. Stress test was done, it came back a s negative. Cleared by GI and all the consultants for the discharge. H and H h as been negative. Denies any further bleeding. States that she is on the medi rob regimen and has a primary care physician and GI doctor in [place] and her cousin is on her way to come pick her up and again insisting to go home today . RN reports that she had a temperature of 100 earlier today, so I recommend ed to watch the temperature overnight today and make sure that she does not have any temperature, but the patient again seems to be leaning towards leavin g and most likely will leave once her cousin is here, understands all the ris k, but wants to sign AMA papers and leave once the cousin is here. If she agrees to stay, then she will be watched overnight and if remains fever f ree, then can be discharged tomorrow, but again the patient seems to be lean ing towards leaving AMA once the cousin is here. She states that she has her doctor, GI doctor, primary care doctor and also gets paracentesis on regula r basis every 2 weeks and her doctors are arranging it in [place] and agrees to follow up with primary care physician and GI on Saturday. FINAL DIAGNOSES: 1. Septic shock, on presentation, resolved. 2. Upper gastrointestinal bleed. 3. Acute blood loss anemia. 4. Now H and H is better. PATIENT NAME: AMAURI CAPELLAN 7182 5. Severe recurrent ascites, increasing, paracentesis regularly as outpatient. 6. Elevated troponin. Stress test negative. Mariola cyn by cardiology for the discharge. 7. Hepatic encephalopathy, resolved. DISPOSITION: Home. DISCHARGE MEDICATIONS: See medication reconcilia tion form. DISCHARGE INSTRUCTIONS: The patient is a ctually recommended to stay today, but again she is wanting to leave AMA, agrees to fol low up with primary care physician, GI, and IR on Saturday and recommended to go to the ER if any of the symptoms worsens. Recommended to monitor the blo od pressure. The patient is planning to leave AMA. Dictated By: Chas Hilliard MD WT: DS:RAMILA/SARA/MICHELLE Conf#: [id number]/DID#: [id number] Authenticated and Edited by Chas Hilliard MD O n 05/03/19 11:39:48 PM Electronically Signed by Chas Hilliard MD on at 2341 PATIENT NAME: AMAURI CAPELLAN 7182 2019-05-02 09:26:00-00:00 [facility] Prog.Note-Vancomycin REPORT#:[id number] REPORT STATUS: Signed DATE:05/02/19 TIME: 925 PATIENT: AMAURI CAPELLAN UNIT #: [id number] ROOM/BED: [address] : [birth year] AGE: 48 SEX: F ATTEND: Jamie Dewitt MD ADM AUTHOR: Abiodun Barlow Ph * ALL edits or amendments must be made on the Le[employer]/computer document * Vancomycin Vancomycin Medication Therapy: Vancomycin Labs: Laboratory Tests: 05/016 Toxicology Vancomycin Trough (10 - 20 mcG/ML) 23.1 H Laboratory Test : 05/02 0309 Chemistry BUN (7 - 18 MG/DL) 22 H Creatinine (0.55 - 1.30 MG/DL) 0.97 Microbiology: 04/30 121 BLOOD: Blood Culture - RES 04/30 1213 BLOOD: Blood Culture - RES Treatment plan: consult (VANC TROUGH=23.1) Regimen: 243 SEPSIS GOAL 15-20 VANCOMYCIN 1500MG IVPB Q12HRS (1000,2200) TROUGH DUE 05-01-2019 @ 2100 = 23.1; 2200 DOSE W NOT GIVEN; LAST DOSE WAS GIVEN @904 ON 05/01; TROUGH WAS TA ASHLEE @2115 ON 05/01 ON TIME; CHANGE ORDER TO; VANC 1.25GM IV Q12H (1000,2200) ; NEXT TROUGH DUE: 05/03 @2100= 04/30 SCR 1.09 CRCL 97 ML/MIN; 05/01 SCR 0.96; CRCL=84ML/MIN; 05/01 SCR 0.97; CRCL=83ML/MIN; at 0927 RPT #:[id number] END OF REPORT 2019-05-01 17:11:00-00:[address] [facility] ([facility]) Op/Inv Procedure Note - Brief REPORT#:[id number] REPORT STATUS: Signed DATE:05/01/19 TIME: 1710 PATIENT: AMAURI CAPELLAN UNIT #: [id number] ROOM/BED: [address] : [birth year] AGE: 48 SEX: F ATTEND: Jamie Dewitt MD ADM AUTHOR: Shilo Tesfaye MD * ALL edits or amendments must be made on the el ectronic/computer document * Op/Inv Proc Note - Brief TEXT Brief Op/Inv Procedure Note Note details: Pre-procedure: Ascites Post-procedure: Same Procedure: US-guided paracentesis Primary Surgeon: Dr. Tesfaye Assistants: None Anesthetic: Local; EBL: Less than 10 cc Specimens Removed: None Complications: None Drains: None Fluid Findings: Harrison clear. Full procedure details will be under imaging. Electronically Signed by Shilo Tesfaye MD on at 1711 RPT #:[id number] END OF REPORT 2019-05-01 11:30:00-00:00 [facility] ([facility]) Cardiology Progress Note REPORT#:[id number] REPORT STATUS: Signed DATE:05/01/19 TIME: 1130 PATIENT: AMAURI CAPELLAN UNIT #: [id number] ROOM/BED: [address] : 69 AGE: 48 SEX: F ATTEND: Jenny Dewitt MD ADM AUTHOR: Magdalene Smart MD * ALL edits or amendments must be made on the [employer]/computer document * Subjective Free Text Subj Notes Free Text Subj Notes: Patient is seen in the stress lab. She denies an y active chest pain, palpitations or dizziness. Objective General VS/I O: Vital Signs: Date Time Temp Pulse Resp B/P B/P Pulse O2 O2 F low FiO2 Mean Ox Delivery Rate 05/01 0905 90/59 69.3 05/01 0826 99.5 90 18 83/53 63.1 94 Room air 05/01 0318 99.1 86 12 94/58 69.8 97 04/30 2339 98.8 81 12 97/56 70.1 97 04/30 2054 98.4 79 14 96/59 71.2 100 04/30 1959 97.7 84 18 107/69 81.9 96 04/30 1621 98.1 85 18 104/65 78.1 98 Room air 04/30 1535 98 21 04/30 1207 98.6 83 20 110/68 81.6 98 Room air Patient Weight Weight (lb): 217 Weight (oz): 2.49 Weight (kg): 98.500 Free Text Obj Notes Free Text Obj Notes: General Impression: Alert and oriented x3, not i n acute distress HEENT: Normocephalic atrauma tic, extraocular movements intact, pupils equal and reactive to light bilaterally Cardiovascular: Heart regular rate and rhythm, S 1 S2 audible, no murmurs Chest: Lungs clear to auscul tation bilaterally, no rhonchi, no wheeze, no rales Abdomen: Bowel sounds present, abdomen soft, non -tender, non-distended, no organomegaly Extremities: No cyanosis, clubbing or edema. Diagnosis, Assessment Plan Free Text DxA P Notes Free Text DxA P Notes: 1. Preprocedure evaluation, cardiac clearance Patient with history of hypertension and cirrhos is She denies history of diabetes, hyperlipidemia, stroke, CHF, lung disease or kidney disease Minimal troponin elevation likely demand ischemi a in the setting of severe anemia Patient of moderate risk for perioperative cardi ovascular events. 2. GI bleed/Severe anemia Management per GI team. 3. Hypertension, Benign: Blood pressure will be check ed at regular intervals and dose adjustment will be made accordingly. Patient is educated about the importance of low- sodium diet and exercise is recommended. Side effects of the medications currently being used for the patient were explained to him in detail. 4. Ascites Status post paracentesis 5. Elevated lactic acid 6. Elevated troponin Likely demand ischemia in the setting of severe anemia no hx CAD, no CP Obtain echo to evaluate LVEF, assess for RWMA an d valve disease Patient underwent stress test today. Pending res ults. Electronically Signed by Magdalene Smart MD on 0 05/01/19 at 1131 RPT #:[id number] END OF REPORT 2019-05-01 11:30:00-00:[address] [facility] ([facility] Hospitalist Progress Note REPORT#:[id number] REPORT STATUS: Signed DATE:05/01/19 TIME: 1130 PATIENT: AMAURI CAPELLAN UNIT #: [id number] ROOM/BED: [address] : [birth year] AGE: 48 SEX: F ATTEND: Jamie Dewitt MD ADM AUTHOR: Chas Hilliard MD * ALL edits or amendments must be made on the [employer]/computer document * Subjective Chief Complaint: pt seen in room blood Cx 1/2 +ve for GPC on vanc Back from stress test Abd is distended Pt has no c/o other than abdominal distention Denies CP/sob Patient reports: Yes: resting comfortably. No : chest pain, chills, constipation, cough, diarrhea , dizziness, fever, headache, nausea, pain, shor tness of breath, vomiting. Nursing reports: No: complaints. Objective General VS/I O: Vital Signs: Date Time Temp Pulse Resp B/P B/P Pulse O2 O2 F low FiO2 Mean Ox Delivery Rate 05/01 1209 37.5 82 18 100/61 73.9 99 Room air 05/01 0905 90/59 69.3 05/01 08 37.5 90 18 83/53 63.1 94 Room air 05/01 0318 37.3 86 12 94/58 69.8 97 04/30 2339 37.1 81 12 97/56 70.1 97 04/30 2054 36.9 79 14 96/59 71.2 100 04/30 1959 36.5 84 18 107/69 81.9 96 04/30 1621 36.7 85 18 104/65 78.1 98 Room air 04/30 1535 98 21 Patient Weight Weight (lb): 217 Weight (oz): 2.49 Weight (kg): 98.500 Medications: Active Meds + DC'd Last 24 Hrs Regadenoson 0.4 MG .STK-MED ONE IV (DC) Technetium TC99M Sestamibi 30.4 mCi .STK-MED ONE IV (DC) Technetium TC99M Sestamibi 13 mCi .STK-MED ONE I V (DC) Diphenhydramine HCl 50 MG BEDTIME PRN PRN PO Undefined Medication 1 APPLIC Q6H PRN PRN TOPICA L Acetaminophen 650 MG Q6H PRN PRN PO Vancomycin HCl 1,500 MG Q12H IV Sodium Chloride 500 ML Furosemide 40 MG DAILY PO Spironolactone 12.5 MG DAILY PO Miscellaneous Information 1 EACH ASDIR IV (CKD) Lactulose 30 ML TID PO (CKD) Pantoprazole 40 MG BID IV Thiamine HCl 100 MG Q24H IV Sodium Chloride 100 ML Furosemide 20 MG BLOOD-DOSE AFTER IV (DC) Mupirocin 1 APPLIC BID NASAL Calcium Gluconate 1,000 MG ASDIR PRN IV Sodium Chloride 100 ML Magnesium Sulfate 50 ML ASDIR PRN IV Magnesium Sulfate/Dextrose 100 ML ASDIR PRN IV Ondansetron HCl 4 MG Q6H PRN PRN IV Potassium Chloride 20 MEQ ASDIR PRN PO Potassium Chloride 40 MEQ ASDIR PRN PO Potassium Chloride 40 MEQ ASDIR PRN PO Potassium Chloride 200 ML ASDIR PRN IV Potassium Chloride 400 ML ASDIR PRN IV Potassium Chloride 400 ML ASDIR PRN IV Potassium Chloride 100 ML ASDIR PRN IV Potassium Chloride 200 ML ASDIR PRN IV Potassium Chloride 200 ML ASDIR PRN IV Potassium Phos/Sodium Phos 1 PKT ASDIR PRN PO (C KD) Potassium Phosphate 15 MM ASDIR PRN IV (CKD) Sodium Chloride 250 ML Potassium Phosphate 30 MM ASDIR PRN IV (CKD) Sodium Chloride 500 ML Ceftriaxone Sodium 1 GM BEDTIME IV Sterile Water 10 ML Albuterol Sulfate 2.5 MG RTQ6H PRN PRN INH Dextrose/Water 25 ML ASDIR PRN IV Glucagon 1 MG ASDIR PRN IM Glucose Polymer 15 GM ASDIR PRN PO Physical Exam General appearance: alert, awake, oriented, no a cute distress ENT: moist mucosal membranes Neck: supple/no meningismus Cardiovascular: regular rate rhythm Respiratory: decreased breath sounds Abdomen: ascites, fluid wave c/w ascites, non-te nder, soft Extremities: moves all Psychiatry: normal affect Results Findings/Data: Laboratory Tests 05/01 235 Chemistry Sodium (133 - 144 mmol/L) 136.0 Potassium (3.5 - 5.1 mmol/L) 3.6 Chloride (95 - 105 mmol/L) 111 H Carbon Dioxide (21 - 32 mmol/L) 16 L Anion Gap (4.0 - 15.0 GAP calc) 9.0 BUN (7 - 18 MG/DL) 24 H Creatinine (0.55 - 1.30 MG/DL) 0.96 Glucose (70 - 110 MG/DL) 97 Calcium (8.5 - 10.1 MG/DL) 7.4 L Specimen Appearance (1 NORMAL Index/DL) 2 TRACE 2-5 MG Specimen Hemolysis (1 NORMAL Index/DL) 1 NORMAL <10 MG Laboratory Tests 05/01 235 Hematology WBC (4.1 - 12.1 K/mm3) 9.5 RBC (3.8 - 5.5 M/mm3) 4.07 Hgb (10.6 - 15.8 G/DL) 12.3 Hct (31.8 - 47.4 %) 36.8 MCV (80.1 - 101.1 fL) 90.4 MCH (25.3 - 35.3 pg) 30.2 MCHC (32.7 - 35.1 G/DL) 33.4 RDW (12.2 - 16.4 %) 18.3 H Plt Count (155 - 337 K/mm3) 102 L MPV (6.8 - 11.2 fL) 11.3 H Gran % (37.8 - 82.6 %) 76.7 Lymph % (Auto) (14.1 - 45.4 %) 4.0 L [place] % (Auto) (2.5 - 11.7 %) 10.5 Eos % (Auto) (0.0 - 6.2 %) 3.6 Baso % (Auto) (0.0 - 2.1 %) 0.6 Gran # (2.0 - 13.7 k/mm3) 7.31 Lymph # (Auto) (0.6 - 3.8 K/mm3) 0.38 L [place] # (Auto) (0.11 - 0.59 K/mm3) 1.00 H Eos # (Auto) (0.0 - 0.4 K/mm3) 0.34 Baso # (Auto) (0.0 - 0.1 K/mm3) 0.06 Immature Gran % (0.0 - 2.0 %) 4.6 H Nucleated RBC % (0.0 - 1.0 /100WBC%) 0.0 Nucleated RBCs # (0.0 - 0.05 K/mm3) 0.00 Results: labs reviewed, vital signs stable, curr ent med profile rev'd Diagnosis, Assessment Plan Free Text DxA P Notes Free Text DxA P Notes: 1. Septic shock on presentation with lactic acid more than 6. Resolved blood cx +ve for GPC in 1/2 On vanc Follow culture results If am blood Cx negative this am then possibly co ntaminated specimen 2. Upper gastrointestinal bleed . Continue Protonix. s/p EGD HH stable 3. Severe acute blood loss anemia. will monitor and keep hb above 7, HH stable 4. Severe ascites. Status post paracentesis 10 L of fluid removed We will start patient on Lasix and small dose of Aldactone if blood pressure allows, BP on the lower side. Pt w distended abdomen. re consult IR for repeat paracentesis 5. Increase in troponin, possibly demand ischemi a. cardio following. Await stress test result 6. Hepatic encephalopathy improved with the lact ulose 7. We will do deep venous thrombosis and gastroi ntestinal prophylaxes. 8. Will advance diet increase activity Disposition if hemoglobin stable and repeat bloo d Cx negative from am will anticipate discharging her home tomorrow Await IR for repeat paracentesis Dw pt an RN Electronically Signed by Chas Hilliard MD on 04/06 02/20 at 1339 RPT #:[id number] END OF REPORT 2019-04-30 15:17:00-00:00 [facility] ([facility]) Hospitalist Progress Note REPORT#:[id number] REPORT STATUS: Signed DATE:04/30/19 TIME: 1516 PATIENT: AMAURI CAPELLAN UNIT #: [id number] ROOM/BED: [address] : [birth year] AGE: 48 SEX: F ATTEND: Jamie Dewitt MD ADM AUTHOR: May Dewitt MD * ALL edits or amendments must be made on the [employer]/computer document * Subjective Chief Complaint: pt seen in room blood Cx 1/2 +ve for GPC started on vanc Objective General VS/I O: Vital Signs: Date Time Temp Pulse Resp B/P B/P Pulse O2 O2 F low FiO2 Mean Ox Delivery Rate 04/30 2339 37.1 81 12 97/56 70.1 97 04/30 2054 36.9 79 14 96/59 71.2 100 04/30 1959 36.5 84 18 107/69 81.9 96 04/30 1621 36.7 85 18 104/65 78.1 98 Room air 04/30 1535 98 21 04/30 1207 37.0 83 20 110/68 81.6 98 Room air 04/30 0749 36.9 83 18 94/56 68.6 93 Room air 04/30 0343 37.5 86 14 104/67 79.5 97 Patient Weight Weight (lb): 217 Weight (oz): 2.49 Weight (kg): 98.500 Medications: Active Meds + DC'd Last 24 Hrs Diphenhydramine HCl 50 MG BEDTIME PRN PRN PO Undefined Medication 1 APPLIC Q6H PRN PRN TOPICA L Acetaminophen 650 MG Q6H PRN PRN PO Vancomycin HCl 1,500 MG Q12H IV Sodium Chloride 500 ML Furosemide 40 MG DAILY PO Spironolactone 12.5 MG DAILY PO Miscellaneous Information 1 EACH ASDIR IV (CKD) Lactulose 30 ML TID PO (CKD) Pantoprazole 40 MG BID IV Thiamine HCl 100 MG Q24H IV Sodium Chloride 100 ML Furosemide 20 MG BLOOD-DOSE AFTER IV (CKD) Mupirocin 1 APPLIC BID NASAL Calcium Gluconate 1,000 MG ASDIR PRN IV Sodium Chloride 100 ML Magnesium Sulfate 50 ML ASDIR PRN IV Magnesium Sulfate/Dextrose 100 ML ASDIR PRN IV Ondansetron HCl 4 MG Q6H PRN PRN IV Potassium Chloride 20 MEQ ASDIR PRN PO Potassium Chloride 40 MEQ ASDIR PRN PO Potassium Chloride 40 MEQ ASDIR PRN PO Potassium Chloride 200 ML ASDIR PRN IV Potassium Chloride 400 ML ASDIR PRN IV Potassium Chloride 400 ML ASDIR PRN IV Potassium Chloride 100 ML ASDIR PRN IV Potassium Chloride 200 ML ASDIR PRN IV Potassium Chloride 200 ML ASDIR PRN IV Potassium Phos/Sodium Phos 1 PKT ASDIR PRN PO (C KD) Potassium Phosphate 15 MM ASDIR PRN IV (CKD) Sodium Chloride 250 ML Potassium Phosphate 30 MM ASDIR PRN IV (CKD) Sodium Chloride 500 ML Ceftriaxone Sodium 1 GM BEDTIME IV Sterile Water 10 ML Albuterol Sulfate 2.5 MG RTQ6H PRN PRN INH Dextrose/Water 25 ML ASDIR PRN IV Glucagon 1 MG ASDIR PRN IM Glucose Polymer 15 GM ASDIR PRN PO Physical Exam General appearance: alert, awake, oriented ENT: moist mucosal membranes Neck: supple/no meningismus Cardiovascular: regular rate rhythm Respiratory: decreased breath sounds Abdomen: ascites, fluid wave c/w ascites, non-te nder, soft Extremities: moves all Results Findings/Data: Laboratory Tests 04/30 04/30 0748 0329 Chemistry Sodium (133 - 144 mmol/L) 136.0 Potassium (3.5 - 5.1 mmol/L) 4.2 Chloride (95 - 105 mmol/L) 111 H Carbon Dioxide (21 - 32 mmol/L) 15 *L Anion Gap (4.0 - 15.0 GAP calc) 10.0 BUN (7 - 18 MG/DL) 38 H Creatinine (0.55 - 1.30 MG/DL) 1.09 Glucose (70 - 110 MG/DL) 117 H POC Glucose (70 - 119 MG/DL) 121 H Calcium (8.5 - 10.1 MG/DL) 7.7 L Specimen Appearance (1 NORMAL Index/DL) 1 BRIAN L <2 MG Specimen Hemolysis (1 NORMAL Index/DL) 1 NORMAL <10 MG Laboratory Tests 04/30 0329 Hematology WBC (4.1 - 12.1 K/mm3) 10.8 RBC (3.8 - 5.5 M/mm3) 4.28 Hgb (10.6 - 15.8 G/DL) 12.7 Hct (31.8 - 47.4 %) 37.2 MCV (80.1 - 101.1 fL) 86.9 MCH (25.3 - 35.3 pg) 29.7 MCHC (32.7 - 35.1 G/DL) 34.1 RDW (12.2 - 16.4 %) 17.4 H Plt Count (155 - 337 K/mm3) 115 L MPV (6.8 - 11.2 fL) 11.1 Gran % (37.8 - 82.6 %) 79.5 Lymph % (Auto) (14.1 - 45.4 %) 3.9 L [place] % (Auto) (2.5 - 11.7 %) 9.4 Eos % (Auto) (0.0 - 6.2 %) 1.8 Baso % (Auto) (0.0 - 2.1 %) 0.5 Gran # (2.0 - 13.7 k/mm3) 8.56 Lymph # (Auto) (0.6 - 3.8 K/mm3) 0.42 L [place] # (Auto) (0.11 - 0.59 K/mm3) 1.01 H Eos # (Auto) (0.0 - 0.4 K/mm3) 0.19 Baso # (Auto) (0.0 - 0.1 K/mm3) 0.05 Add Manual Diff (CRITERIA DIFF/SCN) MAN DIFF IN DICATED Total Counted (100 #CELLS) 100 Immature Gran % (0.0 - 2.0 %) 4.9 H Seg Neutrophils % (40 - 75 %) 82 H Lymphocytes % (Manual) (18.7 - 40.6 %) 4 L Monocytes % (Manual) (3.8 - 11.4 %) 10 Eosinophils % (Manual) (0.0 - 4.1 %) 2 Nucleated RBC % (0.0 - 1.0 /100WBC%) 0.0 Metamyelocytes (0 - 2 %) 1 Myelocytes (0 - 1 %) 1 Nucleated RBCs # (0.0 - 0.05 K/mm3) 0.00 Platelet Estimate (ADEQUATE ON SCAN) SL DECR Polychromasia (NONE ON SCAN) SLIGHT Anisocytosis (NONE ON SCAN) SLIGHT Diagnosis, Assessment Plan Free Text DxA P Notes Free Text DxA P Notes: 1. Septic shock on presentation with lactic acid more than 6. We will continue sepsis protocol. Continue antib iotics. blood cx +ve for GPC in 08/06 On vanc Repeated blood cX this am If am blood Cx negative this am then possibly co ntaminated specimen 2. Upper gastrointestinal bleed . Continue Protonix. s/p EGD DC octreotide 3. Severe acute blood loss anemia. will monitor and keep hb above 7 4. Severe ascites. Status post paracentesis 10 L of fluid removed We will start patient on Lasix and small dose of Aldactone if blood pressure allows 5. Increase in troponin, possibly demand ischemi a. cardio following. 6. Hepatic encephalopathy improved with the lact ulose 7. We will do deep venous thrombosis and gastroi ntestinal prophylaxes. 8. Will advance diet increase activity Disposition if hemoglobin stable and repeat bloo d Cx negative from am will anticipate discharging her home tomorrow Electronically Signed by May Dewitt MD on at 0200 RPT #:[id number] END OF REPORT 2019-04-30 09:28:00-00:00 [facility] Prog.Note-Vancomycin REPORT#:[id number] REPORT STATUS: Signed DATE:04/30/19 TIME: 927 PATIENT: AMAURI CAPELLAN UNIT #: [id number] ROOM/BED: [address] : [birth year] AGE: 48 SEX: F ATTEND: Jenny Cruz ADM AUTHOR: Margie Sargent [facility] * ALL edits or amendments must be made on the el [employer]/computer document * Vancomycin Vancomycin Medication Therapy: Vancomycin Goal trough: 15-20 mcg/ml Indication for treatment: SEPSIS Current therapy: VANCOMYCIN 1500MG IVPB Q12H Day of therapy: 1 Weight: Actual weight (kg): 99 Labs: Laboratory Test : 04/30 04/29 0329 1125 Chemistry BUN (7 - 18 MG/DL) 38 H Creatinine (0.55 - 1.30 MG/DL) 1.09 Hematology WBC (4.1 - 12.1 K/mm3) 10.8 10.6 Microbiology: 04/30 841 BLOOD: Blood Culture - ORD 04/30 841 BLOOD: Blood Culture - ORD 04/28 1418 PERITONEAL: Body Fluid Culture - RES 04/28 141 PERITONEAL: Gram Stain - RES 04/27 2358 NASAL: MSSA Surveillance Screen - RES 04/27 2358 NASAL: MRSA Screen - RES 04/27 2200 BLOOD: Blood Culture - RES GRAM POSITIVE COCCI 04/27 2200 BLOOD: Blood Culture - RES 04/27 2200 BLOOD: Blood Culture - RES GRAM POSITIVE COCCI Treatment plan: initiation of therapy Follow up: Lab: TROUGH DUE 05-01-19 @ 2100 at 0929 RPT #:[id number] END OF REPORT 2019-04-30 09:22:00-00:[address] [facility] ([facility]) Gastroenterology Progress Note REPORT#:[id number] REPORT STATUS: Signed DATE:04/30/19 TIME: 921 PATIENT: AMAURI CAPELLAN UNIT #: [id number] ROOM/BED: [address] : [birth year] AGE: 48 SEX: F ATTEND: Jenny Cruz ADM AUTHOR: Morelia Westno [employer] [facility] TECHNICIAN * ALL edits or amendments must be made on the [employer] document * Subjective Comments: Pt reports mild nausea but improved and no vomit ing. Denies abd pain or cramping. Stools are loose due to lactul ose but no bloody or black appearance. Objective Physical Exam VS/I O: Last Documented: Result Date Time Pulse Ox 93 04/30 0749 B/P 94/56 04/30 0749 B/P Mean 68.6 04/30 07 O2 Delivery Room air 04/30 749 Temp 98.4 04/30 749 Pulse 83 04/30 0749 Resp 18 04/30 0749 O2 Flow Rate 2.349195 04/27 2110 24 hour I O ending at 0700: 04/30 0700 04/29 1900 Intake Total Output Total Balance Number 1 Bowel Movements Number Voids 5 Patient 98.5 kg Weight Weight Bed scale Measurement Method Patient Weight Weight (lb): 217 Weight (oz): 2.49 Weight (kg): 98.500 HEENT: anicteric, moist mucosal membranes Abdomen: Abd distended with ascites fluid noted, large drsg intact to lower abd, active bowel sounds. soft, non-tender. Extremities: no clubbing, no cyanosis, no edema Neuro/CLINICAL SALES CONSULTANT: alert, oriented X 3 Skin: dry, intact, normal color Results Findings/Data: Laboratory Tests 04/30/19328: [Embedded Image Not Available] 04/29/192234: [Embedded Image Not Available] 04/29/19 1125: [Embedded Image Not Available] Laboratory Tests 04/30 329 Chemistry Sodium (133 - 144 mmol/L) 136.0 Potassium (3.5 - 5.1 mmol/L) 4.2 Chloride (95 - 105 mmol/L) 111 H Carbon Dioxide (21 - 32 mmol/L) 15 *L Anion Gap (4.0 - 15.0 GAP calc) 10.0 BUN (7 - 18 MG/DL) 38 H Creatinine (0.55 - 1.30 MG/DL) 1.09 Glucose (70 - 110 MG/DL) 117 H Calcium (8.5 - 10.1 MG/DL) 7.7 L Specimen Appearance (1 NORMAL Index/DL) 1 BRIAN L <2 MG Specimen Hemolysis (1 NORMAL Index/DL) 1 NORMAL <10 MG Laboratory Tests 04/30 Hematology WBC (4.1 - 12.1 K/mm3) 10.8 RBC (3.8 - 5.5 M/mm3) 4.28 4.44 Hgb (10.6 - 15.8 G/DL) 12.7 13.4 Hct (31.8 - 47.4 %) 37.2 39.3 MCV (80.1 - 101.1 fL) 86.9 88.5 MCH (25.3 - 35.3 pg) 29.7 MCHC (32.7 - 35.1 G/DL) 34.1 RDW (12.2 - 16.4 %) 17.4 H Plt Count (155 - 337 K/mm3) 115 L MPV (6.8 - 11.2 fL) 11.1 Gran % (37.8 - 82.6 %) 79.5 Lymph % (Auto) (14.1 - 45.4 %) 3.9 L [place] % (Auto) (2.5 - 11.7 %) 9.4 Eos % (Auto) (0.0 - 6.2 %) 1.8 Baso % (Auto) (0.0 - 2.1 %) 0.5 Gran # (2.0 - 13.7 k/mm3) 8.56 Lymph # (Auto) (0.6 - 3.8 K/mm3) 0.42 L [place] # (Auto) (0.11 - 0.59 K/mm3) 1.01 H Eos # (Auto) (0.0 - 0.4 K/mm3) 0.19 Baso # (Auto) (0.0 - 0.1 K/mm3) 0.05 Add Manual Diff (CRITERIA DIFF/SCN) MAN DIFF IN DICATED Total Counted (100 #CELLS) 100 Immature Gran % (0.0 - 2.0 %) 4.9 H Seg Neutrophils % (40 - 75 %) 82 H Lymphocytes % (Manual) (18.7 - 40.6 %) 4 L Monocytes % (Manual) (3.8 - 11.4 %) 10 Eosinophils % (Manual) (0.0 - 4.1 %) 2 Nucleated RBC % (0.0 - 1.0 /100WBC%) 0.0 Metamyelocytes (0 - 2 %) 1 Myelocytes (0 - 1 %) 1 Nucleated RBCs # (0.0 - 0.05 K/mm3) 0.00 Platelet Estimate (ADEQUATE ON SCAN) SL DECR Polychromasia (NONE ON SCAN) SLIGHT Anisocytosis (NONE ON SCAN) SLIGHT 04/29 1125 Hematology WBC (4.1 - 12.1 K/mm3) 10.6 RBC (3.8 - 5.5 M/mm3) 3.57 L Hgb (10.6 - 15.8 G/DL) 10.6 Hct (31.8 - 47.4 %) 30.9 L MCV (80.1 - 101.1 fL) 86.6 MCH (25.3 - 35.3 pg) 29.7 MCHC (32.7 - 35.1 G/DL) 34.3 RDW (12.2 - 16.4 %) 15.9 Plt Count (155 - 337 K/mm3) 91 L MPV (6.8 - 11.2 fL) 10.9 Gran % (37.8 - 82.6 %) 81.0 Lymph % (Auto) (14.1 - 45.4 %) 4.0 L [place] % (Auto) (2.5 - 11.7 %) 9.5 Eos % (Auto) (0.0 - 6.2 %) 0.3 Baso % (Auto) (0.0 - 2.1 %) 0.1 Gran # (2.0 - 13.7 k/mm3) 8.57 Lymph # (Auto) (0.6 - 3.8 K/mm3) 0.42 L [place] # (Auto) (0.11 - 0.59 K/mm3) 1.01 H Eos # (Auto) (0.0 - 0.4 K/mm3) 0.03 Baso # (Auto) (0.0 - 0.1 K/mm3) 0.01 Add Manual Diff (CRITERIA DIFF/SCN) MAN DIFF IN DICATED Total Counted (100 #CELLS) 100 Immature Gran % (0.0 - 2.0 %) 5.1 H Seg Neutrophils % (40 - 75 %) 91 H Lymphocytes % (Manual) (18.7 - 40.6 %) 1 L Monocytes % (Manual) (3.8 - 11.4 %) 6 Eosinophils % (Manual) (0.0 - 4.1 %) 1 Nucleated RBC % (0.0 - 1.0 /100WBC%) 0.5 Myelocytes (0 - 1 %) 1 Nucleated RBCs # (0.0 - 0.05 K/mm3) 0.05 Platelet Estimate (ADEQUATE ON SCAN) SL DECR Polychromasia (NONE ON SCAN) SLIGHT Diagnosis, Assessment Plan Free Text A P: Patient with cirrhosis non c ompliant with hx of esophageal varices who presents with anemia and hematemesis to an OSH - s/p EGD with portal hypertensive gastropathy, duodenitis with hemorrhage. Continu e PPI. S/p paracetesis paracentesis due to asci anat-- will need diuretics on discharge if BP able to hold Follow H/H, transfuse to uli ntain hgb >7.0 and/or if hemodynamically unstable or signs of occult GIB-stable. Lactulose TID for encephalopathy, goal 3-4 soft stools daily. Recommend albumin if low BPs-spironolact one/furosemide if b/p stable and renal fxn stable Check for SBP with paracentesis with 10 liters r emoved, neg cultures. Repeat para prn symptomatic ascites Thrombocytopenia-stable. at 0925 RPT #:[id number] END OF REPORT 2019-04-30 09:22:00-00:00 [facility] Gastroenterology Progress Note REPORT#:[id number] REPORT STATUS: Signed DATE:04/30/19 TIME: 921 PATIENT: AMAURI CAPELLAN UNIT #: [id number] ROOM/BED: [address] : [birth year] AGE: 48 SEX: F ATTEND: Jamie Dewitt MD ADM AUTHOR: Morelia Weston [employer] LAB TECHNICIAN * ALL edits or amendments must be made on the [employer]/computer document * Subjective Comments: Pt reports mild nausea but improved and no vomit ing. Denies abd pain or cramping. Stools are loose due to lactul ose but no bloody or black appearance. Objective Physical Exam VS/I O: Last Documented: Result Date Time Pulse Ox 93 04/30 749 B/P 94/56 04/30 0749 B/P Mean 68.6 04/30 0749 O2 Delivery Room air 04/30 749 Temp 98.4 04/30 749 Pulse 83 04/30 0749 Resp 18 04/30 749 O2 Flow Rate 2.763497 04/270 24 hour I O ending at 0700: 04/30 0700 04/29 1900 Intake Total Output Total Balance Number 1 Bowel Movements Number Voids 5 Patient 98.5 kg Weight Weight Bed scale Measurement Method Patient Weight Weight (lb): 217 Weight (oz): 2.49 Weight (kg): 98.500 HEENT: anicteric, moist mucosal membranes Abdomen: Abd distended with ascites fluid noted, large drsg intact to lower abd, active bowel sounds. soft, non-tender. Extremities: no clubbing, no cyanosis, no edema Neuro/CLINICAL SALES CONSULTANT: alert, oriented X 3 Skin: dry, intact, normal color Results Findings/Data: Laboratory Tests 04/30/19328: [Embedded Image Not Available] 04/29/192234: [Embedded Image Not Available] 04/29/19 1125: [Embedded Image Not Available] Laboratory Tests 04/30 329 Chemistry Sodium (133 - 144 mmol/L) 136.0 Potassium (3.5 - 5.1 mmol/L) 4.2 Chloride (95 - 105 mmol/L) 111 H Carbon Dioxide (21 - 32 mmol/L) 15 *L Anion Gap (4.0 - 15.0 GAP calc) 10.0 BUN (7 - 18 MG/DL) 38 H Creatinine (0.55 - 1.30 MG/DL) 1.09 Glucose (70 - 110 MG/DL) 117 H Calcium (8.5 - 10.1 MG/DL) 7.7 L Specimen Appearance (1 NORMAL Index/DL) 1 BRIAN L <2 MG Specimen Hemolysis (1 NORMAL Index/DL) 1 NORMAL <10 MG Laboratory Tests 04/30 Hematology WBC (4.1 - 12.1 K/mm3) 10.8 RBC (3.8 - 5.5 M/mm3) 4.28 4.44 Hgb (10.6 - 15.8 G/DL) 12.7 13.4 Hct (31.8 - 47.4 %) 37.2 39.3 MCV (80.1 - 101.1 fL) 86.9 88.5 MCH (25.3 - 35.3 pg) 29.7 MCHC (32.7 - 35.1 G/DL) 34.1 RDW (12.2 - 16.4 %) 17.4 H Plt Count (155 - 337 K/mm3) 115 L MPV (6.8 - 11.2 fL) 11.1 Gran % (37.8 - 82.6 %) 79.5 Lymph % (Auto) (14.1 - 45.4 %) 3.9 L [place] % (Auto) (2.5 - 11.7 %) 9.4 Eos % (Auto) (0.0 - 6.2 %) 1.8 Baso % (Auto) (0.0 - 2.1 %) 0.5 Gran # (2.0 - 13.7 k/mm3) 8.56 Lymph # (Auto) (0.6 - 3.8 K/mm3) 0.42 L [place] # (Auto) (0.11 - 0.59 K/mm3) 1.01 H Eos # (Auto) (0.0 - 0.4 K/mm3) 0.19 Baso # (Auto) (0.0 - 0.1 K/mm3) 0.05 Add Manual Diff (CRITERIA DIFF/SCN) MAN DIFF IN DICATED Total Counted (100 #CELLS) 100 Immature Gran % (0.0 - 2.0 %) 4.9 H Seg Neutrophils % (40 - 75 %) 82 H Lymphocytes % (Manual) (18.7 - 40.6 %) 4 L Monocytes % (Manual) (3.8 - 11.4 %) 10 Eosinophils % (Manual) (0.0 - 4.1 %) 2 Nucleated RBC % (0.0 - 1.0 /100WBC%) 0.0 Metamyelocytes (0 - 2 %) 1 Myelocytes (0 - 1 %) 1 Nucleated RBCs # (0.0 - 0.05 K/mm3) 0.00 Platelet Estimate (ADEQUATE ON SCAN) SL DECR Polychromasia (NONE ON SCAN) SLIGHT Anisocytosis (NONE ON SCAN) SLIGHT 04/29 1125 Hematology WBC (4.1 - 12.1 K/mm3) 10.6 RBC (3.8 - 5.5 M/mm3) 3.57 L Hgb (10.6 - 15.8 G/DL) 10.6 Hct (31.8 - 47.4 %) 30.9 L MCV (80.1 - 101.1 fL) 86.6 MCH (25.3 - 35.3 pg) 29.7 MCHC (32.7 - 35.1 G/DL) 34.3 RDW (12.2 - 16.4 %) 15.9 Plt Count (155 - 337 K/mm3) 91 L MPV (6.8 - 11.2 fL) 10.9 Gran % (37.8 - 82.6 %) 81.0 Lymph % (Auto) (14.1 - 45.4 %) 4.0 L [place] % (Auto) (2.5 - 11.7 %) 9.5 Eos % (Auto) (0.0 - 6.2 %) 0.3 Baso % (Auto) (0.0 - 2.1 %) 0.1 Gran # (2.0 - 13.7 k/mm3) 8.57 Lymph # (Auto) (0.6 - 3.8 K/mm3) 0.42 L [place] # (Auto) (0.11 - 0.59 K/mm3) 1.01 H Eos # (Auto) (0.0 - 0.4 K/mm3) 0.03 Baso # (Auto) (0.0 - 0.1 K/mm3) 0.01 Add Manual Diff (CRITERIA DIFF/SCN) MAN DIFF IN DICATED Total Counted (100 #CELLS) 100 Immature Gran % (0.0 - 2.0 %) 5.1 H Seg Neutrophils % (40 - 75 %) 91 H Lymphocytes % (Manual) (18.7 - 40.6 %) 1 L Monocytes % (Manual) (3.8 - 11.4 %) 6 Eosinophils % (Manual) (0.0 - 4.1 %) 1 Nucleated RBC % (0.0 - 1.0 /100WBC%) 0.5 Myelocytes (0 - 1 %) 1 Nucleated RBCs # (0.0 - 0.05 K/mm3) 0.05 Platelet Estimate (ADEQUATE ON SCAN) SL DECR Polychromasia (NONE ON SCAN) SLIGHT Diagnosis, Assessment Plan Free Text A P: Patient with cirrhosis non c ompliant with hx of esophageal varices who presents with anemia and hematemesis to an OSH - s/p EGD with portal hypertensive gastropathy, duodenitis with hemorrhage. Continu e PPI. S/p paracetesis paracentesis due to asci anat-- will need diuretics on discharge if BP able to hold Follow H/H, transfuse to uli ntain hgb >7.0 and/or if hemodynamically unstable or signs of occult GIB-stable. Lactulose TID for encephalopathy, goal 3-4 soft stools daily. Recommend albumin if low BPs-spironolact one/furosemide if b/p stable and renal fxn stable Check for SBP with paracentesis with 10 liters r emoved, neg cultures. Repeat para prn symptomatic ascites Thrombocytopenia-stable. at 0925 Electronically Signed by Sandy South MD on 01/21 at 1141 RPT #:[id number] END OF REPORT 2019-04-29 15:37:00-00:[address] [facility] ([facility]) Cardiology Progress Note REPORT#:[id number] REPORT STATUS: Signed DATE:04/29/19 TIME: 1536 PATIENT: AMAURI CAPELLAN UNIT #: [id number] ROOM/BED: [address] : [birth year] AGE: 48 SEX: F ATTEND: Jenny Cruz ADM AUTHOR: Juani Florez NP * ALL edits or amendments must be made on the [employer]/computer document * Subjective Comments: feeling better no CP she reports epeisode of CP yesterday after given med just prior to her EGD no recurrent pain Objective General VS/I O: 24 hour I O ending at 0700: 04/30 0700 04/29 1900 Intake Total Output Total Balance Number 1 Bowel Movements Number Voids 5 Patient 98.5 kg Weight Weight Bed scale Measurement Method Vital Signs: Date Time Temp Pulse Resp B/P B/P Pulse O2 O2 F low FiO2 Mean Ox Delivery Rate 04/30 0749 98.4 83 18 94/56 68.6 93 Room air 04/30 0343 99.5 86 14 104/67 79.5 97 04/29 2328 98.8 79 12 103/63 76.4 96 04/29 1919 99.1 73 14 106/69 81.5 96 Room air 04/29 1841 77 18 04/29 1830 81 21 105/63 79 95 04/29 1811 82 24 116/63 84 96 04/29 1800 82 19 98 04/29 1730 80 19 98 04/29 1700 76 15 99 04/29 1630 77 21 99 04/29 1600 76 59 100/59 76 98 04/29 1530 77 44 101/55 73 98 04/29 1500 79 22 94/53 68 98 04/29 1430 72 61 100/57 72 97 04/29 1422 73 24 98 04/29 1400 74 27 104/62 78 98 04/29 1330 73 41 111/68 85 97 04/29 1306 76 29 108/63 80 97 04/29 1300 84 25 04/29 1230 69 15 100/59 74 98 04/29 1200 66 20 99/59 75 97 04/29 1130 70 27 92/50 65 97 04/29 1100 70 17 90/55 70 97 04/29 1030 67 14 100/55 72 97 Patient Weight Weight (lb): 217 Weight (oz): 2.49 Weight (kg): 98.500 Medications: Active Meds + DC'd Last 24 Hrs Vancomycin HCl 1,500 MG Q12H IV Sodium Chloride 500 ML Furosemide 40 MG DAILY PO Spironolactone 12.5 MG DAILY PO Miscellaneous Information 1 EACH ASDIR IV (CKD) Lactulose 30 ML TID PO (CKD) Pantoprazole 40 MG BID IV Insulin Human Regular 100 UNIT ASDIR IV (CAN) Sodium Chloride 100 ML Potassium Chloride 40 MEQ ONCE ONE PO (DC) Thiamine HCl 100 MG Q24H IV Sodium Chloride 100 ML Furosemide 20 MG BLOOD-DOSE AFTER IV (CKD) Sodium Chloride 250 ML ASDIR IV (DC) Mupirocin 1 APPLIC BID NASAL Calcium Gluconate 1,000 MG ASDIR PRN IV Sodium Chloride 100 ML Magnesium Sulfate 50 ML ASDIR PRN IV Magnesium Sulfate/Dextrose 100 ML ASDIR PRN IV Ondansetron HCl 4 MG Q6H PRN PRN IV Potassium Chloride 20 MEQ ASDIR PRN PO Potassium Chloride 40 MEQ ASDIR PRN PO Potassium Chloride 40 MEQ ASDIR PRN PO Potassium Chloride 200 ML ASDIR PRN IV Potassium Chloride 400 ML ASDIR PRN IV Potassium Chloride 400 ML ASDIR PRN IV Potassium Chloride 100 ML ASDIR PRN IV Potassium Chloride 200 ML ASDIR PRN IV Potassium Chloride 200 ML ASDIR PRN IV Potassium Phos/Sodium Phos 1 PKT ASDIR PRN PO (C KD) Potassium Phosphate 15 MM ASDIR PRN IV (CKD) Sodium Chloride 250 ML Potassium Phosphate 30 MM ASDIR PRN IV (CKD) Sodium Chloride 500 ML Ceftriaxone Sodium 1 GM BEDTIME IV Sterile Water 10 ML Albuterol Sulfate 2.5 MG RTQ6H PRN PRN INH Dextrose/Water 25 ML ASDIR PRN IV Glucagon 1 MG ASDIR PRN IM Glucose Polymer 15 GM ASDIR PRN PO Norepinephrine/Dextrose 250 ML ASDIR IV (DC) Octreotide Acetate 500 MCG ASDIR IV (DC) Sodium Chloride 249 ML Pantoprazole Sodium 80 MG ASDIR IV (DC) Sodium Chloride 100 ML Physical Exam General appearance: alert, awake, oriented, no a cute distress, pleasant Head/Eyes: atraumatic, EOMI Neck: no JVD Cardiovascular: CV assessment: regular rate and rhythm, normal heart sounds Respiratory: decreased breath sounds, no distres s Abdomen: soft Genitourinary: no monroy Lower extremity: LE assessment: no edema Musculoskeletal: FAULKNER Neuro/CLINICAL SALES CONSULTANT: alert, oriented X 3 Skin: dry (pale) Psychiatry: normal affect Results Findings/Data: Laboratory Tests 04/30 329 Chemistry Sodium (133 - 144 mmol/L) 136.0 Potassium (3.5 - 5.1 mmol/L) 4.2 Chloride (95 - 105 mmol/L) 111 H Carbon Dioxide (21 - 32 mmol/L) 15 *L Anion Gap (4.0 - 15.0 GAP calc) 10.0 BUN (7 - 18 MG/DL) 38 H Creatinine (0.55 - 1.30 MG/DL) 1.09 Glucose (70 - 110 MG/DL) 117 H Calcium (8.5 - 10.1 MG/DL) 7.7 L Specimen Appearance (1 NORMAL Index/DL) 1 BRIAN L <2 MG Specimen Hemolysis (1 NORMAL Index/DL) 1 NORMAL <10 MG Laboratory Tests 04/30 2235 Hematology WBC (4.1 - 12.1 K/mm3) 10.8 RBC (3.8 - 5.5 M/mm3) 4.28 4.44 Hgb (10.6 - 15.8 G/DL) 12.7 13.4 Hct (31.8 - 47.4 %) 37.2 39.3 MCV (80.1 - 101.1 fL) 86.9 88.5 MCH (25.3 - 35.3 pg) 29.7 MCHC (32.7 - 35.1 G/DL) 34.1 RDW (12.2 - 16.4 %) 17.4 H Plt Count (155 - 337 K/mm3) 115 L MPV (6.8 - 11.2 fL) 11.1 Gran % (37.8 - 82.6 %) 79.5 Lymph % (Auto) (14.1 - 45.4 %) 3.9 L [place] % (Auto) (2.5 - 11.7 %) 9.4 Eos % (Auto) (0.0 - 6.2 %) 1.8 Baso % (Auto) (0.0 - 2.1 %) 0.5 Gran # (2.0 - 13.7 k/mm3) 8.56 Lymph # (Auto) (0.6 - 3.8 K/mm3) 0.42 L [place] # (Auto) (0.11 - 0.59 K/mm3) 1.01 H Eos # (Auto) (0.0 - 0.4 K/mm3) 0.19 Baso # (Auto) (0.0 - 0.1 K/mm3) 0.05 Add Manual Diff (CRITERIA DIFF/SCN) MAN DIFF IN DICATED Total Counted (100 #CELLS) 100 Immature Gran % (0.0 - 2.0 %) 4.9 H Seg Neutrophils % (40 - 75 %) 82 H Lymphocytes % (Manual) (18.7 - 40.6 %) 4 L Monocytes % (Manual) (3.8 - 11.4 %) 10 Eosinophils % (Manual) (0.0 - 4.1 %) 2 Nucleated RBC % (0.0 - 1.0 /100WBC%) 0.0 Metamyelocytes (0 - 2 %) 1 Myelocytes (0 - 1 %) 1 Nucleated RBCs # (0.0 - 0.05 K/mm3) 0.00 Platelet Estimate (ADEQUATE ON SCAN) SL DECR Polychromasia (NONE ON SCAN) SLIGHT Anisocytosis (NONE ON SCAN) SLIGHT 04/29 1125 Hematology WBC (4.1 - 12.1 K/mm3) 10.6 RBC (3.8 - 5.5 M/mm3) 3.57 L Hgb (10.6 - 15.8 G/DL) 10.6 Hct (31.8 - 47.4 %) 30.9 L MCV (80.1 - 101.1 fL) 86.6 MCH (25.3 - 35.3 pg) 29.7 MCHC (32.7 - 35.1 G/DL) 34.3 RDW (12.2 - 16.4 %) 15.9 Plt Count (155 - 337 K/mm3) 91 L MPV (6.8 - 11.2 fL) 10.9 Gran % (37.8 - 82.6 %) 81.0 Lymph % (Auto) (14.1 - 45.4 %) 4.0 L [place] % (Auto) (2.5 - 11.7 %) 9.5 Eos % (Auto) (0.0 - 6.2 %) 0.3 Baso % (Auto) (0.0 - 2.1 %) 0.1 Gran # (2.0 - 13.7 k/mm3) 8.57 Lymph # (Auto) (0.6 - 3.8 K/mm3) 0.42 L [place] # (Auto) (0.11 - 0.59 K/mm3) 1.01 H Eos # (Auto) (0.0 - 0.4 K/mm3) 0.03 Baso # (Auto) (0.0 - 0.1 K/mm3) 0.01 Add Manual Diff (CRITERIA DIFF/SCN) MAN DIFF IN DICATED Total Counted (100 #CELLS) 100 Immature Gran % (0.0 - 2.0 %) 5.1 H Seg Neutrophils % (40 - 75 %) 91 H Lymphocytes % (Manual) (18.7 - 40.6 %) 1 L Monocytes % (Manual) (3.8 - 11.4 %) 6 Eosinophils % (Manual) (0.0 - 4.1 %) 1 Nucleated RBC % (0.0 - 1.0 /100WBC%) 0.5 Myelocytes (0 - 1 %) 1 Nucleated RBCs # (0.0 - 0.05 K/mm3) 0.05 Platelet Estimate (ADEQUATE ON SCAN) SL DECR Polychromasia (NONE ON SCAN) SLIGHT Diagnosis, Assessment Plan Free Text DxA P Notes Free Text DxA P Notes: 1. Preprocedure evaluation, cardiac clearance Patient with history of hypertension and cirrhos is She denies history of diabetes, hyperlipidemia, stroke, CHF, lung disease or kidney disease Minimal troponin elevation likely demand ischemi a in the setting of severe anemia Patient of moderate risk for perioperative cardi ovascular events. 2. GI bleed/Severe anemia Work-up pending 3. HTN BPs on the low side. Continue to monitor. Patient states she always has low BPs. 4. Ascites Status post paracentesis 5. Elevated lactic acid 6. Elevated troponin Likely demand ischemia in the setting of severe anemia no hx CAD, no CP Obtain echo to evaluate LVEF, assess for RWMA an d valve disease Further ischemic eval when cleared from GI stand point Electronically Signed by Juani Florez NP on at 1017 RPT #:[id number] END OF REPORT 2019-04-29 14:56:00-00:[address] [facility] ([facility]) Gastroenterology Progress Note REPORT#:[id number] REPORT STATUS: Signed DATE:04/29/19 TIME: 1455 PATIENT: AMAURI CAPELLAN UNIT #: [id number] ROOM/BED: [address] : [birth year] AGE: 48 SEX: F ATTEND: Jenny Cruz ADM AUTHOR: Morelia Weston NP * ALL edits or amendments must be made on the [employer]/computer document * Subjective Comments: Pt awake, alert, tolerating a diet. Reports naus ea but denies vomiting. Large stool due to lactulose but no melena or hematoch ezia. Objective Physical Exam VS/I O: Last Documented: Result Date Time Pulse Ox 98 04/29 1422 Pulse 73 04/29 1422 Resp 24 04/29 1422 B/P 104/62 04/29 1400 B/P Mean 78 04/29 1400 O2 Delivery Room air 04/29 1004 Temp 98.5 04/29 0737 O2 Flow Rate 2.897753 04/27 2110 24 hour I O ending at 0700: 04/29 0700 04/28 1900 Intake Total 3450.00 1191.80 Output Total 1350 375 Balance 2100.00 816.80 Intake, Blood 250 Product Intake, IV 320.00 571.80 Intake, Oral 1380 120 Intake, 1750 250 Packed Cells Number 1 Bowel Movements Number Voids 1 Output, Urine 1350 375 Patient Weight Weight (lb): 217 Weight (oz): 2.49 Weight (kg): 98.500 Medications: Active Meds + DC'd Last 24 Hrs Furosemide 40 MG DAILY PO Spironolactone 12.5 MG DAILY PO Potassium Chloride 40 MEQ ONCE ONE PO (DC) Albumin Human 200 ML ONCE ONE IV (DC) Thiamine HCl 100 MG Q24H IV Sodium Chloride 100 ML Furosemide 20 MG BLOOD-DOSE AFTER IV (CKD) Sodium Chloride 250 ML ASDIR IV (DC) Mupirocin 1 APPLIC BID NASAL Calcium Gluconate 1,000 MG ASDIR PRN IV Sodium Chloride 100 ML Magnesium Sulfate 50 ML ASDIR PRN IV Magnesium Sulfate/Dextrose 100 ML ASDIR PRN IV Ondansetron HCl 4 MG Q6H PRN PRN IV Potassium Chloride 20 MEQ ASDIR PRN PO Potassium Chloride 40 MEQ ASDIR PRN PO Potassium Chloride 40 MEQ ASDIR PRN PO Potassium Chloride 200 ML ASDIR PRN IV Potassium Chloride 400 ML ASDIR PRN IV Potassium Chloride 400 ML ASDIR PRN IV Potassium Chloride 100 ML ASDIR PRN IV Potassium Chloride 200 ML ASDIR PRN IV Potassium Chloride 200 ML ASDIR PRN IV Potassium Phos/Sodium Phos 1 PKT ASDIR PRN PO (C KD) Potassium Phosphate 15 MM ASDIR PRN IV (CKD) Sodium Chloride 250 ML Potassium Phosphate 30 MM ASDIR PRN IV (CKD) Sodium Chloride 500 ML Sodium Chloride 250 ML ASDIR IV (DC) Ceftriaxone Sodium 1 GM BEDTIME IV Sterile Water 10 ML Albuterol Sulfate 2.5 MG RTQ6H PRN PRN INH Dextrose/Water 25 ML ASDIR PRN IV Glucagon 1 MG ASDIR PRN IM Glucose Polymer 15 GM ASDIR PRN PO Norepinephrine/Dextrose 250 ML ASDIR IV (DC) Octreotide Acetate 500 MCG ASDIR IV (DC) Sodium Chloride 249 ML Pantoprazole Sodium 80 MG ASDIR IV (CKD) Sodium Chloride 100 ML General appearance: chronically ill appearing, a lert, awake, oriented HEENT: anicteric, moist mucosal membranes Abdomen: Abd distended with ascites fluid noted, large drsg intact to lower abd, active bowel sounds. soft, non-tender. Extremities: no clubbing, no cyanosis, no edema Neuro/CLINICAL SALES CONSULTANT: alert, oriented X 3 Skin: dry, intact, normal color Results Findings/Data: Laboratory Tests 04/29/19 1125: [Embedded Image Not Available] 04/29/19 0330: [Embedded Image Not Available] 04/28/19 1815: [Embedded Image Not Available] Laboratory Tests 04/29 330 Chemistry Sodium (133 - 144 mmol/L) 140.0 Potassium (3.5 - 5.1 mmol/L) 3.3 L Chloride (95 - 105 mmol/L) 112 H Carbon Dioxide (21 - 32 mmol/L) 17 L Anion Gap (4.0 - 15.0 GAP calc) 11.0 BUN (7 - 18 MG/DL) 49 H Creatinine (0.55 - 1.30 MG/DL) 1.35 H Glucose (70 - 110 MG/DL) 123 H Calcium (8.5 - 10.1 MG/DL) 7.6 L Magnesium (1.6 - 2.6 MG/DL) 1.8 Specimen Appearance (1 NORMAL Index/DL) 2 TRACE 2-5 MG Specimen Hemolysis (1 NORMAL Index/DL) 1 BRIAN L <10 MG Laboratory Tests 04/29 1125 Hematology WBC (4.1 - 12.1 K/mm3) 10.6 RBC (3.8 - 5.5 M/mm3) 3.57 L Hgb (10.6 - 15.8 G/DL) 10.6 Hct (31.8 - 47.4 %) 30.9 L MCV (80.1 - 101.1 fL) 86.6 MCH (25.3 - 35.3 pg) 29.7 MCHC (32.7 - 35.1 G/DL) 34.3 RDW (12.2 - 16.4 %) 15.9 Plt Count (155 - 337 K/mm3) 91 L MPV (6.8 - 11.2 fL) 10.9 Gran % (37.8 - 82.6 %) 81.0 Lymph % (Auto) (14.1 - 45.4 %) 4.0 L [place] % (Auto) (2.5 - 11.7 %) 9.5 Eos % (Auto) (0.0 - 6.2 %) 0.3 Baso % (Auto) (0.0 - 2.1 %) 0.1 Gran # (2.0 - 13.7 k/mm3) 8.57 Lymph # (Auto) (0.6 - 3.8 K/mm3) 0.42 L [place] # (Auto) (0.11 - 0.59 K/mm3) 1.01 H Eos # (Auto) (0.0 - 0.4 K/mm3) 0.03 Baso # (Auto) (0.0 - 0.1 K/mm3) 0.01 Add Manual Diff (CRITERIA DIFF/SCN) MAN DIFF IN DICATED Total Counted (100 #CELLS) 100 Immature Gran % (0.0 - 2.0 %) 5.1 H Seg Neutrophils % (40 - 75 %) 91 H Lymphocytes % (Manual) (18.7 - 40.6 %) 1 L Monocytes % (Manual) (3.8 - 11.4 %) 6 Eosinophils % (Manual) (0.0 - 4.1 %) 1 Nucleated RBC % (0.0 - 1.0 /100WBC%) 0.5 Myelocytes (0 - 1 %) 1 Nucleated RBCs # (0.0 - 0.05 K/mm3) 0.05 Platelet Estimate (ADEQUATE ON SCAN) SL DECR Polychromasia (NONE ON SCAN) SLIGHT 04/29 0330 Hematology WBC (4.1 - 12.1 K/mm3) 12.9 H RBC (3.8 - 5.5 M/mm3) 4.07 Hgb (10.6 - 15.8 G/DL) 12.2 Hct (31.8 - 47.4 %) 35.0 MCV (80.1 - 101.1 fL) 86.0 MCH (25.3 - 35.3 pg) 30.0 MCHC (32.7 - 35.1 G/DL) 34.9 RDW (12.2 - 16.4 %) 15.7 Plt Count (155 - 337 K/mm3) 111 L MPV (6.8 - 11.2 fL) 11.1 Gran % (37.8 - 82.6 %) 79.1 Lymph % (Auto) (14.1 - 45.4 %) 3.2 L [place] % (Auto) (2.5 - 11.7 %) 11.3 Eos % (Auto) (0.0 - 6.2 %) 0.0 Baso % (Auto) (0.0 - 2.1 %) 0.3 Gran # (2.0 - 13.7 k/mm3) 10.24 Lymph # (Auto) (0.6 - 3.8 K/mm3) 0.41 L [place] # (Auto) (0.11 - 0.59 K/mm3) 1.46 H Eos # (Auto) (0.0 - 0.4 K/mm3) 0.00 Baso # (Auto) (0.0 - 0.1 K/mm3) 0.04 Add Manual Diff (CRITERIA DIFF/SCN) MAN DIFF IN DICATED Total Counted (100 #CELLS) 100 Immature Gran % (0.0 - 2.0 %) 6.1 H Seg Neutrophils % (40 - 75 %) 87 H Lymphocytes % (Manual) (18.7 - 40.6 %) 2 L Monocytes % (Manual) (3.8 - 11.4 %) 5 Nucleated RBC % (0.0 - 1.0 /100WBC%) 0.6 Metamyelocytes (0 - 2 %) 5 H Myelocytes (0 - 1 %) 1 Nucleated RBCs # (0.0 - 0.05 K/mm3) 0.08 H Platelet Estimate (ADEQUATE ON SCAN) SL DECR Plt Morphology Comment (NORMAL PLTS ON SCAN) LA RGE FEW Polychromasia (NONE ON SCAN) SLIGHT Anisocytosis (NONE ON SCAN) SLIGHT Ovalocytes (NONE ON SCAN) FEW [place] Cells (NONE ON SCAN) FEW 04/28 1815 Hematology WBC (4.1 - 12.1 K/mm3) 7.7 RBC (3.8 - 5.5 M/mm3) 2.16 L Hgb (10.6 - 15.8 G/DL) 6.5 L Hct (31.8 - 47.4 %) 19.2 *L MCV (80.1 - 101.1 fL) 88.9 MCH (25.3 - 35.3 pg) 30.1 MCHC (32.7 - 35.1 G/DL) 33.9 RDW (12.2 - 16.4 %) 16.1 Plt Count (155 - 337 K/mm3) 66 L MPV (6.8 - 11.2 fL) 10.9 Gran % (37.8 - 82.6 %) 81.0 Lymph % (Auto) (14.1 - 45.4 %) 2.6 L [place] % (Auto) (2.5 - 11.7 %) 11.2 Eos % (Auto) (0.0 - 6.2 %) 0.0 Baso % (Auto) (0.0 - 2.1 %) 0.0 Gran # (2.0 - 13.7 k/mm3) 6.21 Lymph # (Auto) (0.6 - 3.8 K/mm3) 0.20 L [place] # (Auto) (0.11 - 0.59 K/mm3) 0.86 H Eos # (Auto) (0.0 - 0.4 K/mm3) 0.00 Baso # (Auto) (0.0 - 0.1 K/mm3) 0.00 Add Manual Diff (CRITERIA DIFF/SCN) MAN DIFF IN DICATED Total Counted (100 #CELLS) 100 Immature Gran % (0.0 - 2.0 %) 5.2 H Seg Neutrophils % (40 - 75 %) 93 H Lymphocytes % (Manual) (18.7 - 40.6 %) 4 L Monocytes % (Manual) (3.8 - 11.4 %) 3 L Nucleated RBC % (0.0 - 1.0 /100WBC%) 1.0 Nucleated RBCs # (0.0 - 0.05 K/mm3) 0.08 H Toxic Granulation (NONE ON SCAN) SLIGHT Platelet Estimate (ADEQUATE ON SCAN) MOD DECR L Plt Morphology Comment (NORMAL PLTS ON SCAN) LA RGE FEW Polychromasia (NONE ON SCAN) SLIGHT Anisocytosis (NONE ON SCAN) SLIGHT Ovalocytes (NONE ON SCAN) FEW Ethan Cells (NONE ON SCAN) FEW Diagnosis, Assessment Plan Free Text A P: Patient with cirrhosis non c ompliant with hx of esophageal varices who presents with anemia and hematemesis to an OSH - s/p EGD with portal hypertensive gastropathy, duodenitis with hemorrhage. Continue PPI, octreotide has been dc'd. S/p paracetesis paracentesis due to asci anat-- will need diuretics on discharge if BP able to hold Follow H/H, transfuse to uli ntain hgb >7.0 and/or if hemodynamically unstable or signs of occult GIB. If recurrent bleeding consi darcie bleeding scan. Lactulose TID for encephalopathy, goal 3-4 soft stools daily. Recommend albumin if low BPs-spironolact one/furosemide if b/p stable and renal fxn stable Check for SBP with paracentesis with 10 liters removed, gram stain pending but fluid cultures so far negative. at 1504 RPT #:[id number] END OF REPORT 2019-04-29 14:56:00-00:[address] ([facility]) Gastroenterology Progress Note REPORT#:[id number] REPORT STATUS: Signed DATE:04/29/19 TIME: 1455 PATIENT: AMAURI CAPELLAN UNIT #: [id number] [facility] AGE: 48 SEX: F ATTEND: Jamie Dewitt MD ADM AUTHOR: Morelia Weston [employer] QA LAB TECHNICIAN * ALL edits or amendments must be made on the [employer]/computer document * Subjective Comments: Pt awake, alert, tolerating a diet. Reports naus ea but denies vomiting. Large stool due to lactulose but no melena or hematoch ezia. Objective Physical Exam VS/I O: Last Documented: Result Date Time Pulse Ox 98 04/29 1422 Pulse 73 04/29 1422 Resp 24 04/29 1422 B/P 104/62 04/29 1400 B/P Mean 78 04/29 1400 O2 Delivery Room air 04/29 1004 Temp 98.5 04/29 0737 O2 Flow Rate 2.357126 04/27 2110 24 hour I O ending at 0700: 04/29 0700 04/28 1900 Intake Total 3450.00 1191.80 Output Total 1350 375 Balance 2100.00 816.80 Intake, Blood 250 Product Intake, IV 320.00 571.80 Intake, Oral 1380 120 Intake, 1750 250 Packed Cells Number 1 Bowel Movements Number Voids 1 Output, Urine 1350 375 Patient Weight Weight (lb): 217 Weight (oz): 2.49 Weight (kg): 98.500 Medications: Active Meds + DC'd Last 24 Hrs Furosemide 40 MG DAILY PO Spironolactone 12.5 MG DAILY PO Potassium Chloride 40 MEQ ONCE ONE PO (DC) Albumin Human 200 ML ONCE ONE IV (DC) Thiamine HCl 100 MG Q24H IV Sodium Chloride 100 ML Furosemide 20 MG BLOOD-DOSE AFTER IV (CKD) Sodium Chloride 250 ML ASDIR IV (DC) Mupirocin 1 APPLIC BID NASAL Calcium Gluconate 1,000 MG ASDIR PRN IV Sodium Chloride 100 ML Magnesium Sulfate 50 ML ASDIR PRN IV Magnesium Sulfate/Dextrose 100 ML ASDIR PRN IV Ondansetron HCl 4 MG Q6H PRN PRN IV Potassium Chloride 20 MEQ ASDIR PRN PO Potassium Chloride 40 MEQ ASDIR PRN PO Potassium Chloride 40 MEQ ASDIR PRN PO Potassium Chloride 200 ML ASDIR PRN IV Potassium Chloride 400 ML ASDIR PRN IV Potassium Chloride 400 ML ASDIR PRN IV Potassium Chloride 100 ML ASDIR PRN IV Potassium Chloride 200 ML ASDIR PRN IV Potassium Chloride 200 ML ASDIR PRN IV Potassium Phos/Sodium Phos 1 PKT ASDIR PRN PO (C KD) Potassium Phosphate 15 MM ASDIR PRN IV (CKD) Sodium Chloride 250 ML Potassium Phosphate 30 MM ASDIR PRN IV (CKD) Sodium Chloride 500 ML Sodium Chloride 250 ML ASDIR IV (DC) Ceftriaxone Sodium 1 GM BEDTIME IV Sterile Water 10 ML Albuterol Sulfate 2.5 MG RTQ6H PRN PRN INH Dextrose/Water 25 ML ASDIR PRN IV Glucagon 1 MG ASDIR PRN IM Glucose Polymer 15 GM ASDIR PRN PO Norepinephrine/Dextrose 250 ML ASDIR IV (DC) Octreotide Acetate 500 MCG ASDIR IV (DC) Sodium Chloride 249 ML Pantoprazole Sodium 80 MG ASDIR IV (CKD) Sodium Chloride 100 ML General appearance: chronically ill appearing, a lert, awake, oriented HEENT: anicteric, moist mucosal membranes Abdomen: Abd distended with ascites fluid noted, large drsg intact to lower abd, active bowel sounds. soft, non-tender. Extremities: no clubbing, no cyanosis, no edema Neuro/CLINICAL SALES CONSULTANT: alert, oriented X 3 Skin: dry, intact, normal color Results Findings/Data: Laboratory Tests 04/29/19 1125: [Embedded Image Not Available] 04/29/19 0330: [Embedded Image Not Available] 04/28/19 1815: [Embedded Image Not Available] Laboratory Tests 04/29 330 Chemistry Sodium (133 - 144 mmol/L) 140.0 Potassium (3.5 - 5.1 mmol/L) 3.3 L Chloride (95 - 105 mmol/L) 112 H Carbon Dioxide (21 - 32 mmol/L) 17 L Anion Gap (4.0 - 15.0 GAP calc) 11.0 BUN (7 - 18 MG/DL) 49 H Creatinine (0.55 - 1.30 MG/DL) 1.35 H Glucose (70 - 110 MG/DL) 123 H Calcium (8.5 - 10.1 MG/DL) 7.6 L Magnesium (1.6 - 2.6 MG/DL) 1.8 Specimen Appearance (1 NORMAL Index/DL) 2 TRACE 2-5 MG Specimen Hemolysis (1 NORMAL Index/DL) 1 BRIAN L <10 MG Laboratory Tests 04/29 1125 Hematology WBC (4.1 - 12.1 K/mm3) 10.6 RBC (3.8 - 5.5 M/mm3) 3.57 L Hgb (10.6 - 15.8 G/DL) 10.6 Hct (31.8 - 47.4 %) 30.9 L MCV (80.1 - 101.1 fL) 86.6 MCH (25.3 - 35.3 pg) 29.7 MCHC (32.7 - 35.1 G/DL) 34.3 RDW (12.2 - 16.4 %) 15.9 Plt Count (155 - 337 K/mm3) 91 L MPV (6.8 - 11.2 fL) 10.9 Gran % (37.8 - 82.6 %) 81.0 Lymph % (Auto) (14.1 - 45.4 %) 4.0 L [place] % (Auto) (2.5 - 11.7 %) 9.5 Eos % (Auto) (0.0 - 6.2 %) 0.3 Baso % (Auto) (0.0 - 2.1 %) 0.1 Gran # (2.0 - 13.7 k/mm3) 8.57 Lymph # (Auto) (0.6 - 3.8 K/mm3) 0.42 L [place] # (Auto) (0.11 - 0.59 K/mm3) 1.01 H Eos # (Auto) (0.0 - 0.4 K/mm3) 0.03 Baso # (Auto) (0.0 - 0.1 K/mm3) 0.01 Add Manual Diff (CRITERIA DIFF/SCN) MAN DIFF IN DICATED Total Counted (100 #CELLS) 100 Immature Gran % (0.0 - 2.0 %) 5.1 H Seg Neutrophils % (40 - 75 %) 91 H Lymphocytes % (Manual) (18.7 - 40.6 %) 1 L Monocytes % (Manual) (3.8 - 11.4 %) 6 Eosinophils % (Manual) (0.0 - 4.1 %) 1 Nucleated RBC % (0.0 - 1.0 /100WBC%) 0.5 Myelocytes (0 - 1 %) 1 Nucleated RBCs # (0.0 - 0.05 K/mm3) 0.05 Platelet Estimate (ADEQUATE ON SCAN) SL DECR Polychromasia (NONE ON SCAN) SLIGHT 04/29 0330 Hematology WBC (4.1 - 12.1 K/mm3) 12.9 H RBC (3.8 - 5.5 M/mm3) 4.07 Hgb (10.6 - 15.8 G/DL) 12.2 Hct (31.8 - 47.4 %) 35.0 MCV (80.1 - 101.1 fL) 86.0 MCH (25.3 - 35.3 pg) 30.0 MCHC (32.7 - 35.1 G/DL) 34.9 RDW (12.2 - 16.4 %) 15.7 Plt Count (155 - 337 K/mm3) 111 L MPV (6.8 - 11.2 fL) 11.1 Gran % (37.8 - 82.6 %) 79.1 Lymph % (Auto) (14.1 - 45.4 %) 3.2 L [place] % (Auto) (2.5 - 11.7 %) 11.3 Eos % (Auto) (0.0 - 6.2 %) 0.0 Baso % (Auto) (0.0 - 2.1 %) 0.3 Gran # (2.0 - 13.7 k/mm3) 10.24 Lymph # (Auto) (0.6 - 3.8 K/mm3) 0.41 L [place] # (Auto) (0.11 - 0.59 K/mm3) 1.46 H Eos # (Auto) (0.0 - 0.4 K/mm3) 0.00 Baso # (Auto) (0.0 - 0.1 K/mm3) 0.04 Add Manual Diff (CRITERIA DIFF/SCN) MAN DIFF I NDICATED Total Counted (100 #CELLS) 100 Immature Gran % (0.0 - 2.0 %) 6.1 H Seg Neutrophils % (40 - 75 %) 87 H Lymphocytes % (Manual) (18.7 - 40.6 %) 2 L Monocytes % (Manual) (3.8 - 11.4 %) 5 Nucleated RBC % (0.0 - 1.0 /100WBC%) 0.6 Metamyelocytes (0 - 2 %) 5 H Myelocytes (0 - 1 %) 1 Nucleated RBCs # (0.0 - 0.05 K/mm3) 0.08 H Platelet Estimate (ADEQUATE ON SCAN) SL DECR Plt Morphology Comment (NORMAL PLTS ON SCAN) LA RGE FEW Polychromasia (NONE ON SCAN) SLIGHT Anisocytosis (NONE ON SCAN) SLIGHT Ovalocytes (NONE ON SCAN) FEW Ethan Cells (NONE ON SCAN) FEW 04/28 1815 Hematology WBC (4.1 - 12.1 K/mm3) 7.7 RBC (3.8 - 5.5 M/mm3) 2.16 L Hgb (10.6 - 15.8 G/DL) 6.5 L Hct (31.8 - 47.4 %) 19.2 *L MCV (80.1 - 101.1 fL) 88.9 MCH (25.3 - 35.3 pg) 30.1 MCHC (32.7 - 35.1 G/DL) 33.9 RDW (12.2 - 16.4 %) 16.1 Plt Count (155 - 337 K/mm3) 66 L MPV (6.8 - 11.2 fL) 10.9 Gran % (37.8 - 82.6 %) 81.0 Lymph % (Auto) (14.1 - 45.4 %) 2.6 L [place] % (Auto) (2.5 - 11.7 %) 11.2 Eos % (Auto) (0.0 - 6.2 %) 0.0 Baso % (Auto) (0.0 - 2.1 %) 0.0 Gran # (2.0 - 13.7 k/mm3) 6.21 Lymph # (Auto) (0.6 - 3.8 K/mm3) 0.20 L [place] # (Auto) (0.11 - 0.59 K/mm3) 0.86 H Eos # (Auto) (0.0 - 0.4 K/mm3) 0.00 Baso # (Auto) (0.0 - 0.1 K/mm3) 0.00 Add Manual Diff (CRITERIA DIFF/SCN) MAN DIFF IN DICATED Total Counted (100 #CELLS) 100 Immature Gran % (0.0 - 2.0 %) 5.2 H Seg Neutrophils % (40 - 75 %) 93 H Lymphocytes % (Manual) (18.7 - 40.6 %) 4 L Monocytes % (Manual) (3.8 - 11.4 %) 3 L Nucleated RBC % (0.0 - 1.0 /100WBC%) 1.0 Nucleated RBCs # (0.0 - 0.05 K/mm3) 0.08 H Toxic Granulation (NONE ON SCAN) SLIGHT Platelet Estimate (ADEQUATE ON SCAN) MOD DECR L Plt Morphology Comment (NORMAL PLTS ON SCAN) LA RGE FEW Polychromasia (NONE ON SCAN) SLIGHT Anisocytosis (NONE ON SCAN) SLIGHT Ovalocytes (NONE ON SCAN) FEW Ethan Cells (NONE ON SCAN) FEW Diagnosis, Assessment Plan Free Text A P: Patient with cirrhosis non c ompliant with hx of esophageal varices who presents with anemia and hematemesis to an OSH - s/p EGD with portal hypertensive gastropathy, duodenitis with hemorrhage. Continue PPI, octreotide has been dc'd. S/p paracetesis paracentesis due to asci anat-- will need diuretics on discharge if BP able to hold Follow H/H, transfuse to uli ntain hgb >7.0 and/or if hemodynamically unstable or signs of occult GIB. If recurrent bleeding consi darcie bleeding scan. Lactulose TID for encephalopathy, goal 3-4 soft stools daily. Recommend albumin if low BPs-spironolact one/furosemide if b/p stable and renal fxn stable Check for SBP with paracentesis with 10 liters removed, gram stain pending but fluid cultures so far negative. at 1504 Electronically Signed by Sandy South MD on 01/21 at 1142 RPT #:[id number] END OF REPORT 2019-04-29 14:35:00-00:[address] [facility] ([facility]) Hospitalist Progress Note REPORT#:[id number] REPORT STATUS: Signed DATE:04/29/19 TIME: 1435 PATIENT: AMAURI CAPELLAN UNIT #: [id number] ROOM/BED: [address] : [birth year] AGE: 48 SEX: F ATTEND: Jenny Cruz ADM AUTHOR: Vanessa Webb MD * ALL edits or amendments must be made on the el [employer]/computer document * Subjective Free Text Subj Notes Free Subj Notes: pt feeling better Hb 10 today Status post paracentesis 10 L of fluid was remov ed Objective General VS/I O: Vital Signs: Date Time Temp Pulse Resp B/P B/P Pulse O2 O2 F low FiO2 Mean Ox Delivery Rate 04/29 1422 73 24 98 / 1400 74 27 104/62 78 98 / 1330 73 41 111/68 85 97 / 1306 76 29 108/63 80 97 / 1300 84 25 09/ 1230 69 15 100/59 74 98 09/ 1200 66 20 99/59 75 97 09/ 1130 70 27 92/50 65 97 / 1100 70 17 90/55 70 97 09/ 1030 67 14 100/55 72 97 09/ 1004 97 Room air / 1000 67 19 97/56 71 97 09/ 0930 64 21 109/60 80 97 09/25 0900 64 22 100/59 77 99 09/25 0830 62 29 108/56 75 98 09/25 0800 67 35 91/53 68 97 09/25 0737 36.9 64 27 107/62 77 96 09/25 0730 63 16 107/62 80 97 09/25 0700 62 16 108/59 79 97 09/25 0637 61 16 96 09/25 0630 61 17 104/59 77 97 09/25 0600 63 103/59 78 96 09/25 0530 65 19 100/59 77 95 09/25 0517 36.9 09/25 0500 65 16 106/58 76 96 09/25 0431 63 14 106/58 77 95 09/25 0430 63 16 95 09/25 0400 65 91/56 68 94 09/25 0330 61 18 108/63 81 97 09/25 0300 65 18 106/60 78 95 09/25 0230 62 22 114/63 84 95 09/25 0200 68 105/58 76 94 09/25 0130 71 100/56 73 95 09/25 0124 72 25 95 09/25 0104 37.0 69 14 87/51 98 09/25 0100 73 28 87/51 62 94 09/25 0047 96 Room air / 0030 72 99/58 76 96 09/25 0015 69 19 97 09/25 0000 72 21 89/54 69 97 09/24 2330 70 24 105/57 76 98 09/24 2309 37.0 09/24 2300 71 27 97/54 73 96 09/24 2249 37.4 09/24 2245 67 22 97 09/24 2239 37.4 69 15 103/56 98 09/24 2230 68 103/56 76 98 09/24 2200 69 106/53 73 97 09/24 2145 66 23 98 09/24 2130 78 89/63 72 97 09/24 2125 36.9 09/24 2115 68 19 98 09/24 2100 69 114/57 80 98 09/24 2059 36.9 69 14 107/56 98 09/24 2047 36.8 71 14 107/56 98 09/24 2030 71 107/56 78 97 09/24 2014 69 26 95 09/24 2000 65 106/58 77 96 09/24 1945 70 25 96 09/24 1930 70 22 111/56 77 95 09/24 1915 73 19 95 09/24 1900 75 112/59 80 97 09/24 1830 110/59 79 09/24 1829 74 25 96 09/24 1815 71 22 96 09/24 1800 67 16 109/58 78 97 09/24 1745 69 18 97 09/24 1730 66 22 106/59 78 97 09/24 1715 69 16 96 09/24 1700 68 15 106/59 77 97 09/24 1645 67 12 97 09/24 1630 67 13 100/58 74 98 09/24 1628 66 15 98 09/24 1627 67 22 105/59 78 98 09/24 1624 66 19 104/59 79 98 09/24 1621 67 22 103/55 74 98 09/24 1618 74 39 101/59 72 98 09/24 1615 67 22 98/54 73 98 09/24 1612 67 34 98/52 72 98 09/24 1609 66 18 109/58 78 99 09/24 1606 68 17 103/56 76 98 09/24 1603 66 18 101/51 72 98 09/24 1600 72 29 93/55 69 98 09/24 1557 66 24 102/58 76 99 09/24 1554 67 20 105/58 77 98 09/24 1551 67 13 103/58 77 98 09/24 1548 71 25 99/58 75 98 09/24 1545 70 21 102/52 74 98 09/24 1542 72 16 114/58 78 98 09/24 1540 77 14 121/57 82 97 09/24 1536 70 32 99/57 75 98 09/24 1533 68 19 105/58 75 98 09/24 1530 69 15 100/59 77 98 09/24 1527 68 17 105/55 74 99 09/24 1524 69 17 101/56 75 99 09/24 1521 69 19 105/57 78 98 09/24 1518 71 26 107/57 80 99 09/24 1515 72 16 108/58 78 99 09/24 1512 68 21 107/60 77 99 09/24 1509 69 20 107/57 77 99 09/24 1506 67 22 104/55 74 99 09/24 1503 67 19 105/56 75 99 09/24 1500 67 32 105/56 73 99 09/24 1457 67 21 103/57 74 98 09/24 1454 66 16 100/55 73 99 09/24 1451 71 22 105/56 76 98 09/24 1448 68 17 101/55 74 99 09/24 1445 68 28 102/58 75 99 09/24 1442 68 24 105/59 76 98 09/24 1439 67 24 95/57 72 99 09/24 1436 69 18 104/59 80 99 24 hour I O ending at 0700: 04/29 0700 04/28 1900 Intake Total 3450.00 1191.80 Output Total 1350 375 Balance 2100.00 816.80 Intake, Blood 250 Product Intake, IV 320.00 571.80 Intake, Oral 1380 120 Intake, 1750 250 Packed Cells Number 1 Bowel Movements Number Voids 1 Output, Urine 1350 375 Patient Weight Weight (lb): 217 Weight (oz): 2.49 Weight (kg): 98.500 Medications: Active Meds + DC'd Last 24 Hrs Albumin Human 200 ML ONCE ONE IV (DC) Thiamine HCl 100 MG Q24H IV Sodium Chloride 100 ML Furosemide 20 MG BLOOD-DOSE AFTER IV (CKD) Sodium Chloride 250 ML ASDIR IV (DC) Mupirocin 1 APPLIC BID NASAL Calcium Gluconate 1,000 MG ASDIR PRN IV Sodium Chloride 100 ML Magnesium Sulfate 50 ML ASDIR PRN IV Magnesium Sulfate/Dextrose 100 ML ASDIR PRN IV Ondansetron HCl 4 MG Q6H PRN PRN IV Potassium Chloride 20 MEQ ASDIR PRN PO Potassium Chloride 40 MEQ ASDIR PRN PO Potassium Chloride 40 MEQ ASDIR PRN PO Potassium Chloride 200 ML ASDIR PRN IV Potassium Chloride 400 ML ASDIR PRN IV Potassium Chloride 400 ML ASDIR PRN IV Potassium Chloride 100 ML ASDIR PRN IV Potassium Chloride 200 ML ASDIR PRN IV Potassium Chloride 200 ML ASDIR PRN IV Potassium Phos/Sodium Phos 1 PKT ASDIR PRN PO (C KD) Potassium Phosphate 15 MM ASDIR PRN IV (CKD) Sodium Chloride 250 ML Potassium Phosphate 30 MM ASDIR PRN IV (CKD) Sodium Chloride 500 ML Sodium Chloride 250 ML ASDIR IV (DC) Ceftriaxone Sodium 1 GM BEDTIME IV Sterile Water 10 ML Albuterol Sulfate 2.5 MG RTQ6H PRN PRN INH Dextrose/Water 25 ML ASDIR PRN IV Glucagon 1 MG ASDIR PRN IM Glucose Polymer 15 GM ASDIR PRN PO Norepinephrine/Dextrose 250 ML ASDIR IV Octreotide Acetate 500 MCG ASDIR IV (CKD) Sodium Chloride 249 ML Pantoprazole Sodium 80 MG ASDIR IV (CKD) Sodium Chloride 100 ML Physical Exam General appearance: , awake, oriented ENT: moist mucosal membranes Neck: supple/no meningismus Cardiovascular: regular rate rhythm Respiratory: decreased breath sounds Abdomen: ascites, fluid wave c/w ascites, non-te nder, soft Extremities: moves all Results Findings/Data: Laboratory Tests 04/29 0330 Chemistry Sodium (133 - 144 mmol/L) 140.0 Potassium (3.5 - 5.1 mmol/L) 3.3 L Chloride (95 - 105 mmol/L) 112 H Carbon Dioxide (21 - 32 mmol/L) 17 L Anion Gap (4.0 - 15.0 GAP calc) 11.0 BUN (7 - 18 MG/DL) 49 H Creatinine (0.55 - 1.30 MG/DL) 1.35 H Glucose (70 - 110 MG/DL) 123 H Calcium (8.5 - 10.1 MG/DL) 7.6 L Magnesium (1.6 - 2.6 MG/DL) 1.8 Specimen Appearance (1 NORMAL Index/DL) 2 TRACE 2-5 MG Specimen Hemolysis (1 NORMAL Index/DL) 1 NORMAL <10 MG Laboratory Tests 04/29 1125 Hematology WBC (4.1 - 12.1 K/mm3) 10.6 RBC (3.8 - 5.5 M/mm3) 3.57 L Hgb (10.6 - 15.8 G/DL) 10.6 Hct (31.8 - 47.4 %) 30.9 L MCV (80.1 - 101.1 fL) 86.6 MCH (25.3 - 35.3 pg) 29.7 MCHC (32.7 - 35.1 G/DL) 34.3 RDW (12.2 - 16.4 %) 15.9 Plt Count (155 - 337 K/mm3) 91 L MPV (6.8 - 11.2 fL) 10.9 Gran % (37.8 - 82.6 %) 81.0 Lymph % (Auto) (14.1 - 45.4 %) 4.0 L [place] % (Auto) (2.5 - 11.7 %) 9.5 Eos % (Auto) (0.0 - 6.2 %) 0.3 Baso % (Auto) (0.0 - 2.1 %) 0.1 Gran # (2.0 - 13.7 k/mm3) 8.57 Lymph # (Auto) (0.6 - 3.8 K/mm3) 0.42 L [place] # (Auto) (0.11 - 0.59 K/mm3) 1.01 H Eos # (Auto) (0.0 - 0.4 K/mm3) 0.03 Baso # (Auto) (0.0 - 0.1 K/mm3) 0.01 Add Manual Diff (CRITERIA DIFF/SCN) MAN DIFF IN DICATED Total Counted (100 #CELLS) 100 Immature Gran % (0.0 - 2.0 %) 5.1 H Seg Neutrophils % (40 - 75 %) 91 H Lymphocytes % (Manual) (18.7 - 40.6 %) 1 L Monocytes % (Manual) (3.8 - 11.4 %) 6 Eosinophils % (Manual) (0.0 - 4.1 %) 1 Nucleated RBC % (0.0 - 1.0 /100WBC%) 0.5 Myelocytes (0 - 1 %) 1 Nucleated RBCs # (0.0 - 0.05 K/mm3) 0.05 Platelet Estimate (ADEQUATE ON SCAN) SL DECR Polychromasia (NONE ON SCAN) SLIGHT 04/29 0330 Hematology WBC (4.1 - 12.1 K/mm3) 12.9 H RBC (3.8 - 5.5 M/mm3) 4.07 Hgb (10.6 - 15.8 G/DL) 12.2 Hct (31.8 - 47.4 %) 35.0 MCV (80.1 - 101.1 fL) 86.0 MCH (25.3 - 35.3 pg) 30.0 MCHC (32.7 - 35.1 G/DL) 34.9 RDW (12.2 - 16.4 %) 15.7 Plt Count (155 - 337 K/mm3) 111 L MPV (6.8 - 11.2 fL) 11.1 Gran % (37.8 - 82.6 %) 79.1 Lymph % (Auto) (14.1 - 45.4 %) 3.2 L [place] % (Auto) (2.5 - 11.7 %) 11.3 Eos % (Auto) (0.0 - 6.2 %) 0.0 Baso % (Auto) (0.0 - 2.1 %) 0.3 Gran # (2.0 - 13.7 k/mm3) 10.24 Lymph # (Auto) (0.6 - 3.8 K/mm3) 0.41 L [place] # (Auto) (0.11 - 0.59 K/mm3) 1.46 H Eos # (Auto) (0.0 - 0.4 K/mm3) 0.00 Baso # (Auto) (0.0 - 0.1 K/mm3) 0.04 Add Manual Diff (CRITERIA DIFF/SCN) MAN DIFF IN DICATED Total Counted (100 #CELLS) 100 Immature Gran % (0.0 - 2.0 %) 6.1 H Seg Neutrophils % (40 - 75 %) 87 H Lymphocytes % (Manual) (18.7 - 40.6 %) 2 L Monocytes % (Manual) (3.8 - 11.4 %) 5 Nucleated RBC % (0.0 - 1.0 /100WBC%) 0.6 Metamyelocytes (0 - 2 %) 5 H Myelocytes (0 - 1 %) 1 Nucleated RBCs # (0.0 - 0.05 K/mm3) 0.08 H Platelet Estimate (ADEQUATE ON SCAN) SL DECR Plt Morphology Comment (NORMAL PLTS ON SCAN) LA RGE FEW Polychromasia (NONE ON SCAN) SLIGHT Anisocytosis (NONE ON SCAN) SLIGHT Ovalocytes (NONE ON SCAN) FEW Ethan Cells (NONE ON SCAN) FEW 04/28 1815 Hematology WBC (4.1 - 12.1 K/mm3) 7.7 RBC (3.8 - 5.5 M/mm3) 2.16 L Hgb (10.6 - 15.8 G/DL) 6.5 L Hct (31.8 - 47.4 %) 19.2 *L MCV (80.1 - 101.1 fL) 88.9 MCH (25.3 - 35.3 pg) 30.1 MCHC (32.7 - 35.1 G/DL) 33.9 RDW (12.2 - 16.4 %) 16.1 Plt Count (155 - 337 K/mm3) 66 L MPV (6.8 - 11.2 fL) 10.9 Gran % (37.8 - 82.6 %) 81.0 Lymph % (Auto) (14.1 - 45.4 %) 2.6 L [place] % (Auto) (2.5 - 11.7 %) 11.2 Eos % (Auto) (0.0 - 6.2 %) 0.0 Baso % (Auto) (0.0 - 2.1 %) 0.0 Gran # (2.0 - 13.7 k/mm3) 6.21 Lymph # (Auto) (0.6 - 3.8 K/mm3) 0.20 L [place] # (Auto) (0.11 - 0.59 K/mm3) 0.86 H Eos # (Auto) (0.0 - 0.4 K/mm3) 0.00 Baso # (Auto) (0.0 - 0.1 K/mm3) 0.00 Add Manual Diff (CRITERIA DIFF/SCN) MAN DIFF IN DICATED Total Counted (100 #CELLS) 100 Immature Gran % (0.0 - 2.0 %) 5.2 H Seg Neutrophils % (40 - 75 %) 93 H Lymphocytes % (Manual) (18.7 - 40.6 %) 4 L Monocytes % (Manual) (3.8 - 11.4 %) 3 L Nucleated RBC % (0.0 - 1.0 /100WBC%) 1.0 Nucleated RBCs # (0.0 - 0.05 K/mm3) 0.08 H Toxic Granulation (NONE ON SCAN) SLIGHT Platelet Estimate (ADEQUATE ON SCAN) MOD DECR L Plt Morphology Comment (NORMAL PLTS ON SCAN) LA RGE FEW Polychromasia (NONE ON SCAN) SLIGHT Anisocytosis (NONE ON SCAN) SLIGHT Ovalocytes (NONE ON SCAN) FEW Ethan Cells (NONE ON SCAN) FEW Diagnosis, Assessment Plan Free Text DxA P Notes Free Text DxA P Notes: 1. Septic shock on presentation with lactic acid more than 6. We will continue sepsis protocol. Continue antib iotics. Cultures negative today 2. Upper gastrointestinal bleed . Continue Protonix. s/p EGD DC octreotide 3. Severe acute blood loss anemia. will monitor and keep hb above 7 4. Severe ascites. Status post paracentesis 10 L of fluid removed We will start patient on Lasix and small dose of Aldactone if blood pressure allows 5. Increase in troponin, possibly demand ischemi a. cardio following. 6. Hepatic encephalopathy improved with the lact ulose 7. We will do deep venous thrombosis and gastroi ntestinal prophylaxes. 8. Will advance diet increase activity Disposition if hemoglobin stable will an ticipate discharging her home tomorrow Electronically Signed by Vanessa Webb MD on 04/06 12/21 at 1438 RPT #:[id number] END OF REPORT 2019-04-29 14:34:00-00:[address] [facility] ([facility]) Critical Care Progress Note REPORT#:[id number] REPORT STATUS: Signed DATE:04/29/19 TIME: 1434 PATIENT: AMAURI CAPELLAN UNIT #: [id number] ROOM/BED: [address] : [birth year] AGE: 48 SEX: F ATTEND: Jenny Cruz ADM AUTHOR: Andrew De Luna MD * ALL edits or amendments must be made on the el [employer]/computer document * Subjective Patient reports: No: complaints. Nursing reports: No: complaints. Comments: THE PT SEEMS TO BE DOING FAIRLY WELL ON RX. Objective General VS/I O Last Documented: Result Date Time Pulse Ox 98 04/29 1422 Pulse 73 04/29 1422 Resp 24 04/29 1422 B/P 104/62 04/29 1400 B/P Mean 78 04/29 1400 O2 Delivery Room air 04/29 1004 Temp 36.9 04/29 0737 O2 Flow Rate 2.312809 04/27 2110 24 hour I O ending at 0700: 04/29 0700 04/28 1900 Intake Total 3450.00 1191.80 Output Total 1350 375 Balance 2100.00 816.80 Intake, Blood 250 Product Intake, IV 320.00 571.80 Intake, Oral 1380 120 Intake, 1750 250 Packed Cells Number 1 Bowel Movements Number Voids 1 Output, Urine 1350 375 Physical Exam General appearance: alert, awake Head/Eyes: atraumatic, normocephalic, PERRL ENT: normal ear left, normal ear right, normal n ose Neck: full range of motion, non-tender, normal t hyroid Cardiovascular: normal heart sounds, normal S1 S 2, normal rate and rhythm Respiratory/Chest: decreased breath soun ds, aerating well, symmetric expansion Abdomen: ascites, soft, non-tender Extremities: no clubbing, no cyanosis, no edema Results Findings/Data: Laboratory Tests 04/29/19 1125: [Embedded Image Not Available] 04/29/19 033: [Embedded Image Not Available] 04/28/19 1815: [Embedded Image Not Available] Laboratory Tests 04/29 033 Chemistry Sodium (133 - 144 mmol/L) 140.0 Potassium (3.5 - 5.1 mmol/L) 3.3 L Chloride (95 - 105 mmol/L) 112 H Carbon Dioxide (21 - 32 mmol/L) 17 L Anion Gap (4.0 - 15.0 GAP calc) 11.0 BUN (7 - 18 MG/DL) 49 H Creatinine (0.55 - 1.30 MG/DL) 1.35 H Glucose (70 - 110 MG/DL) 123 H Calcium (8.5 - 10.1 MG/DL) 7.6 L Magnesium (1.6 - 2.6 MG/DL) 1.8 Specimen Appearance (1 NORMAL Index/DL) 2 TRACE 2-5 MG Specimen Hemolysis (1 NORMAL Index/DL) 1 NORMAL <10 MG Laboratory Tests 04/29 1125 Hematology WBC (4.1 - 12.1 K/mm3) 10.6 RBC (3.8 - 5.5 M/mm3) 3.57 L Hgb (10.6 - 15.8 G/DL) 10.6 Hct (31.8 - 47.4 %) 30.9 L MCV (80.1 - 101.1 fL) 86.6 MCH (25.3 - 35.3 pg) 29.7 MCHC (32.7 - 35.1 G/DL) 34.3 RDW (12.2 - 16.4 %) 15.9 Plt Count (155 - 337 K/mm3) 91 L MPV (6.8 - 11.2 fL) 10.9 Gran % (37.8 - 82.6 %) 81.0 Lymph % (Auto) (14.1 - 45.4 %) 4.0 L [place] % (Auto) (2.5 - 11.7 %) 9.5 Eos % (Auto) (0.0 - 6.2 %) 0.3 Baso % (Auto) (0.0 - 2.1 %) 0.1 Gran # (2.0 - 13.7 k/mm3) 8.57 Lymph # (Auto) (0.6 - 3.8 K/mm3) 0.42 L [place] # (Auto) (0.11 - 0.59 K/mm3) 1.01 H Eos # (Auto) (0.0 - 0.4 K/mm3) 0.03 Baso # (Auto) (0.0 - 0.1 K/mm3) 0.01 Add Manual Diff (CRITERIA DIFF/SCN) MAN DIFF IN DICATED Total Counted (100 #CELLS) 100 Immature Gran % (0.0 - 2.0 %) 5.1 H Seg Neutrophils % (40 - 75 %) 91 H Lymphocytes % (Manual) (18.7 - 40.6 %) 1 L Monocytes % (Manual) (3.8 - 11.4 %) 6 Eosinophils % (Manual) (0.0 - 4.1 %) 1 Nucleated RBC % (0.0 - 1.0 /100WBC%) 0.5 Myelocytes (0 - 1 %) 1 Nucleated RBCs # (0.0 - 0.05 K/mm3) 0.05 Platelet Estimate (ADEQUATE ON SCAN) SL DECR Polychromasia (NONE ON SCAN) SLIGHT 04/29 0330 Hematology WBC (4.1 - 12.1 K/mm3) 12.9 H RBC (3.8 - 5.5 M/mm3) 4.07 Hgb (10.6 - 15.8 G/DL) 12.2 Hct (31.8 - 47.4 %) 35.0 MCV (80.1 - 101.1 fL) 86.0 MCH (25.3 - 35.3 pg) 30.0 MCHC (32.7 - 35.1 G/DL) 34.9 RDW (12.2 - 16.4 %) 15.7 Plt Count (155 - 337 K/mm3) 111 L MPV (6.8 - 11.2 fL) 11.1 Gran % (37.8 - 82.6 %) 79.1 Lymph % (Auto) (14.1 - 45.4 %) 3.2 L [place] % (Auto) (2.5 - 11.7 %) 11.3 Eos % (Auto) (0.0 - 6.2 %) 0.0 Baso % (Auto) (0.0 - 2.1 %) 0.3 Gran # (2.0 - 13.7 k/mm3) 10.24 Lymph # (Auto) (0.6 - 3.8 K/mm3) 0.41 L [place] # (Auto) (0.11 - 0.59 K/mm3) 1.46 H Eos # (Auto) (0.0 - 0.4 K/mm3) 0.00 Baso # (Auto) (0.0 - 0.1 K/mm3) 0.04 Add Manual Diff (CRITERIA DIFF/SCN) MAN DIFF I NDICATED Total Counted (100 #CELLS) 100 Immature Gran % (0.0 - 2.0 %) 6.1 H Seg Neutrophils % (40 - 75 %) 87 H Lymphocytes % (Manual) (18.7 - 40.6 %) 2 L Monocytes % (Manual) (3.8 - 11.4 %) 5 Nucleated RBC % (0.0 - 1.0 /100WBC%) 0.6 Metamyelocytes (0 - 2 %) 5 H Myelocytes (0 - 1 %) 1 Nucleated RBCs # (0.0 - 0.05 K/mm3) 0.08 H Platelet Estimate (ADEQUATE ON SCAN) SL DECR Plt Morphology Comment (NORMAL PLTS ON SCAN) LA RGE FEW Polychromasia (NONE ON SCAN) SLIGHT Anisocytosis (NONE ON SCAN) SLIGHT Ovalocytes (NONE ON SCAN) FEW [place] Cells (NONE ON SCAN) FEW 04/28 1815 Hematology WBC (4.1 - 12.1 K/mm3) 7.7 RBC (3.8 - 5.5 M/mm3) 2.16 L Hgb (10.6 - 15.8 G/DL) 6.5 L Hct (31.8 - 47.4 %) 19.2 *L MCV (80.1 - 101.1 fL) 88.9 MCH (25.3 - 35.3 pg) 30.1 MCHC (32.7 - 35.1 G/DL) 33.9 RDW (12.2 - 16.4 %) 16.1 Plt Count (155 - 337 K/mm3) 66 L MPV (6.8 - 11.2 fL) 10.9 Gran % (37.8 - 82.6 %) 81.0 Lymph % (Auto) (14.1 - 45.4 %) 2.6 L [place] % (Auto) (2.5 - 11.7 %) 11.2 Eos % (Auto) (0.0 - 6.2 %) 0.0 Baso % (Auto) (0.0 - 2.1 %) 0.0 Gran # (2.0 - 13.7 k/mm3) 6.21 Lymph # (Auto) (0.6 - 3.8 K/mm3) 0.20 L [place] # (Auto) (0.11 - 0.59 K/mm3) 0.86 H Eos # (Auto) (0.0 - 0.4 K/mm3) 0.00 Baso # (Auto) (0.0 - 0.1 K/mm3) 0.00 Add Manual Diff (CRITERIA DIFF/SCN) MAN DIFF IN DICATED Total Counted (100 #CELLS) 100 Immature Gran % (0.0 - 2.0 %) 5.2 H Seg Neutrophils % (40 - 75 %) 93 H Lymphocytes % (Manual) (18.7 - 40.6 %) 4 L Monocytes % (Manual) (3.8 - 11.4 %) 3 L Nucleated RBC % (0.0 - 1.0 /100WBC%) 1.0 Nucleated RBCs # (0.0 - 0.05 K/mm3) 0.08 H Toxic Granulation (NONE ON SCAN) SLIGHT Platelet Estimate (ADEQUATE ON SCAN) MOD DECR L Plt Morphology Comment (NORMAL PLTS ON SCAN) LA RGE FEW Polychromasia (NONE ON SCAN) SLIGHT Anisocytosis (NONE ON SCAN) SLIGHT Ovalocytes (NONE ON SCAN) FEW Ethan Cells (NONE ON SCAN) FEW Microbiology: 04/28 141 PERITONEAL: Body Fluid Culture - RECD 04/28 1418 PERITONEAL: Gram Stain - RECD 04/27 2358 NASAL: MSSA Surveillance Screen - RES 04/27 2358 NASAL: MRSA Screen - RES 04/27 2200 BLOOD: Blood Culture - RES 04/27 2200 BLOOD: Blood Culture - RES Results: labs reviewed, current med profile rev' d Treatment Prophylaxis Treatment Prophylaxis Oxygen: nasal cannula Lines: peripheral Anti-infectives: ceftriaxone Ulcer prophylaxis: famotidine Diagnosis, Assessment Plan Problem List/A P: 1. Upper GI bleed 2. Symptomatic anemia 3. Hemorrhagic shock Free Text A P: 04/28 THE PT SEEMS TO BE DOING FAIRLY WELL ON SUPPLEMENTAL O2 AND HAS HAD ENDOSCOPY. CERTAINLY I AM CONCERNED ABOUT HER LONG HX OF TOBACCO AND ETOH ABUSE. THERE IS EVIDENCE OF CIRRHOSIS AND ASCITES WITH P ROTAL HTN AND ONGOING DUODENITIS. WILL PLAN ANGELITO RN VIEWED CXR FLU WITH GI SERIAL H/H RX K 04/29 THE PT SEEMS TO BE DOING FAIRLY WELLTHER E IS EVIDENCE OF CIRRHOSIS AND ASCITES WITH PROTAL HTN AND ONGOING DUODENITIS. THE PT U NDERWENT PARACENTESIS FOR 10 LITERS YESTERDAY. WILL PLAN ANGELITO RN FLU WITH GI SERIAL H/H TX MED SURG at 1438 RPT #:[id number] END OF REPORT 2019-04-28 23:42:00-00:00 [facility] ([facility]) GE Consultation Note REPORT#:[id number] REPORT STATUS: Signed DATE:04/28/19 TIME: 2341 PATIENT: AMAURI CAPELLAN UNIT #: [id number] [address] AGE: 48 SEX: F ATTEND: Jenny Cruz ADM AUTHOR: Sandy South MD * ALL edits or amendments must be made on the el [employer]/computer document * History of Present Illness Reason for consult: Hematemesis HPI: This is a 48-year-old female who was tra nsferred from [place] who has hx of cirrhosis because of the abdominal pain, nausea and vomiting blood. She was found to be severely anemic at [place]. Patie nt also presented encephalopathic. She was tra nsfused on arrival. She has hx of esophageal varices and banding. History - Adult longitudinal Past medical history: Reports: Anemia, Hypertension, Cirrhosis. 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 Review of Systems Unable to obtain due to: encephalopathic Objective Physical Exam VS/I O: Last Documented: Result Date Time Temp 37.0 04/28 2309 Pulse Ox 96 04/28 2300 B/P 97/54 04/28 2300 B/P Mean 73 04/28 2300 Pulse 71 04/28 2300 Resp 27 04/28 2300 O2 Delivery Room air 04/28 0756 O2 Flow Rate 2.407993 04/27 2110 24 hour I O ending at 0700: 04/28 0700 04/27 1900 Intake Total 2151.70 Output Total Balance 2151.70 Intake, IV 1801.70 Intake, 350 Packed Cells Number 1 Bowel Movements Number Voids 4 Patient 74.091 kg Weight Weight Stated/Reported Measurement Method Patient Weight Weight (lb): Weight (oz): Weight (kg): 74.091 Medications: Active Meds + DC'd Last 24 Hrs Albumin Human 200 ML ONCE ONE IV (DC) Thiamine HCl 100 MG Q24H IV Sodium Chloride 100 ML Furosemide 20 MG BLOOD-DOSE AFTER IV (CKD) Sodium Chloride 250 ML ASDIR IV Lidocaine HCl 0 .STK-MED ONE .ROUTE (DC) Propofol 20 ML .STK-MED ONE IV (DC) Mupirocin 1 APPLIC BID NASAL Albumin Human 200 ML Q1H IV (DC) Hydrocortisone Sodium Succinate 100 MG Q12HR IV (DC) Lactulose 300 ML ONCE ONE RECTAL (DC) Sodium Chloride 700 ML Calcium Gluconate 1,000 MG ASDIR PRN IV Sodium Chloride 100 ML Lactulose 1,000 ML ONCE ONE RECTAL (CAN) Magnesium Sulfate 50 ML ASDIR PRN IV Magnesium Sulfate/Dextrose 100 ML ASDIR PRN IV Ondansetron HCl 4 MG Q6H PRN PRN IV Potassium Chloride 20 MEQ ASDIR PRN PO Potassium Chloride 40 MEQ ASDIR PRN PO Potassium Chloride 40 MEQ ASDIR PRN PO Potassium Chloride 200 ML ASDIR PRN IV Potassium Chloride 400 ML ASDIR PRN IV Potassium Chloride 400 ML ASDIR PRN IV Potassium Chloride 100 ML ASDIR PRN IV Potassium Chloride 200 ML ASDIR PRN IV Potassium Chloride 200 ML ASDIR PRN IV Potassium Phos/Sodium Phos 1 PKT ASDIR PRN PO (C KD) Potassium Phosphate 15 MM ASDIR PRN IV (CKD) Sodium Chloride 250 ML Potassium Phosphate 30 MM ASDIR PRN IV (CKD) Sodium Chloride 500 ML Sodium Chloride 250 ML ASDIR IV Ceftriaxone Sodium 1 GM BEDTIME IV Sterile Water 10 ML Albuterol Sulfate 2.5 MG RTQ6H PRN PRN INH Dextrose/Water 25 ML ASDIR PRN IV Glucagon 1 MG ASDIR PRN IM Glucose Polymer 15 GM ASDIR PRN PO Norepinephrine/Dextrose 250 ML ASDIR IV Octreotide Acetate 500 MCG ASDIR IV (CKD) Sodium Chloride 249 ML Pantoprazole Sodium 80 MG ASDIR IV (CKD) Sodium Chloride 100 ML Octreotide Acetate 500 MCG .[id number] ONE IV (DC) Sodium Chloride 249 ML Pantoprazole Sodium 80 MG X1ED STA IV (DC) Sodium Chloride 100 ML General appearance: awake HEENT: normocephalic Cardiovascular: normal heart sounds Respiratory: symmetric expansion Abdomen: ascites Extremities: no cyanosis Neuro/CLINICAL SALES CONSULTANT: disoriented Results Findings/Data: Laboratory Tests 04/28/19 1815: [Embedded Image Not Available] 04/28/19 1157: [Embedded Image Not Available] 04/28/19 0545: [Embedded Image Not Available] Laboratory Tests 04/28 04/28 04/28 1020 0545 0330 Chemistry Sodium (133 - 144 mmol/L) 139.0 Potassium (3.5 - 5.1 mmol/L) 3.4 L Chloride (95 - 105 mmol/L) 110 H Carbon Dioxide (21 - 32 mmol/L) 17 L Anion Gap (4.0 - 15.0 GAP calc) 12.0 BUN (7 - 18 MG/DL) 58 H Creatinine (0.55 - 1.30 MG/DL) 1.35 H Glucose (70 - 110 MG/DL) 133 H Lactic Acid (0.4 - 2.0 mmol/L) 1.6 Calcium (8.5 - 10.1 MG/DL) 7.5 L Troponin I (0.000 - 0.045 NG/ML) 0.141 *H Specimen Appearance (1 NORMAL Index/DL) 2 TRACE 2-5 MG Specimen Hemolysis (1 NORMAL Index/DL) 1 NORMAL <10 MG 04/28 04/28 0107 0107 Chemistry Lactic Acid (0.4 - 2.0 mmol/L) 2.9 *H Troponin I (0.000 - 0.045 NG/ML) 0.304 *H Procalcitonin (0.00 - 0.10 NG/ML) 1.21 H TSH (0.340 - 4.820 mc IU/ML) 1.440 Laboratory Tests 04/28 1815 Hematology WBC (4.1 - 12.1 K/mm3) 7.7 RBC (3.8 - 5.5 M/mm3) 2.16 L Hgb (10.6 - 15.8 G/DL) 6.5 L Hct (31.8 - 47.4 %) 19.2 *L MCV (80.1 - 101.1 fL) 88.9 MCH (25.3 - 35.3 pg) 30.1 MCHC (32.7 - 35.1 G/DL) 33.9 RDW (12.2 - 16.4 %) 16.1 Plt Count (155 - 337 K/mm3) 66 L MPV (6.8 - 11.2 fL) 10.9 Gran % (37.8 - 82.6 %) 81.0 Lymph % (Auto) (14.1 - 45.4 %) 2.6 L [place] % (Auto) (2.5 - 11.7 %) 11.2 Eos % (Auto) (0.0 - 6.2 %) 0.0 Baso % (Auto) (0.0 - 2.1 %) 0.0 Gran # (2.0 - 13.7 k/mm3) 6.21 Lymph # (Auto) (0.6 - 3.8 K/mm3) 0.20 L [place] # (Auto) (0.11 - 0.59 K/mm3) 0.86 H Eos # (Auto) (0.0 - 0.4 K/mm3) 0.00 Baso # (Auto) (0.0 - 0.1 K/mm3) 0.00 Add Manual Diff (CRITERIA DIFF/SCN) MAN DIFF IN DICATED Total Counted (100 #CELLS) 100 Immature Gran % (0.0 - 2.0 %) 5.2 H Seg Neutrophils % (40 - 75 %) 93 H Lymphocytes % (Manual) (18.7 - 40.6 %) 4 L Monocytes % (Manual) (3.8 - 11.4 %) 3 L Nucleated RBC % (0.0 - 1.0 /100WBC%) 1.0 Nucleated RBCs # (0.0 - 0.05 K/mm3) 0.08 H Toxic Granulation (NONE ON SCAN) SLIGHT Platelet Estimate (ADEQUATE ON SCAN) MOD DECR L Plt Morphology Comment (NORMAL PLTS ON SCAN) LA RGE FEW Polychromasia (NONE ON SCAN) SLIGHT Anisocytosis (NONE ON SCAN) SLIGHT Ovalocytes (NONE ON SCAN) FEW Ethan Cells (NONE ON SCAN) FEW 04/28 1157 Hematology WBC (4.1 - 12.1 K/mm3) 9.7 RBC (3.8 - 5.5 M/mm3) 2.65 L Hgb (10.6 - 15.8 G/DL) 7.7 L Hct (31.8 - 47.4 %) 23.2 L MCV (80.1 - 101.1 fL) 87.5 MCH (25.3 - 35.3 pg) 29.1 MCHC (32.7 - 35.1 G/DL) 33.2 RDW (12.2 - 16.4 %) 15.7 Plt Count (155 - 337 K/mm3) 92 L MPV (6.8 - 11.2 fL) 11.5 H Gran % (37.8 - 82.6 %) 81.8 Lymph % (Auto) (14.1 - 45.4 %) 2.8 L [place] % (Auto) (2.5 - 11.7 %) 9.7 Eos % (Auto) (0.0 - 6.2 %) 0.0 Baso % (Auto) (0.0 - 2.1 %) 0.1 Gran # (2.0 - 13.7 k/mm3) 7.93 Lymph # (Auto) (0.6 - 3.8 K/mm3) 0.27 L [place] # (Auto) (0.11 - 0.59 K/mm3) 0.94 H Eos # (Auto) (0.0 - 0.4 K/mm3) 0.00 Baso # (Auto) (0.0 - 0.1 K/mm3) 0.01 Add Manual Diff (CRITERIA DIFF/SCN) MAN DIFF IN DICATED Total Counted (100 #CELLS) 100 Immature Gran % (0.0 - 2.0 %) 5.6 H Seg Neutrophils % (40 - 75 %) 88 H Lymphocytes % (Manual) (18.7 - 40.6 %) 5 L Monocytes % (Manual) (3.8 - 11.4 %) 3 L Nucleated RBC % (0.0 - 1.0 /100WBC%) 0.9 Metamyelocytes (0 - 2 %) 1 Myelocytes (0 - 1 %) 3 H Nucleated RBCs # (0.0 - 0.05 K/mm3) 0.09 H Platelet Estimate (ADEQUATE ON SCAN) SL DECR Polychromasia (NONE ON SCAN) SLIGHT Anisocytosis (NONE ON SCAN) SLIGHT 04/28 0545 Hematology WBC (4.1 - 12.1 K/mm3) 11.5 RBC (3.8 - 5.5 M/mm3) 3.35 L Hgb (10.6 - 15.8 G/DL) 9.7 L Hct (31.8 - 47.4 %) 28.8 L MCV (80.1 - 101.1 fL) 86.0 MCH (25.3 - 35.3 pg) 29.0 MCHC (32.7 - 35.1 G/DL) 33.7 RDW (12.2 - 16.4 %) 15.3 Plt Count (155 - 337 K/mm3) 110 L MPV (6.8 - 11.2 fL) 11.8 H Gran % (37.8 - 82.6 %) 79.1 Lymph % (Auto) (14.1 - 45.4 %) 3.1 L [place] % (Auto) (2.5 - 11.7 %) 9.3 Eos % (Auto) (0.0 - 6.2 %) 0.1 Baso % (Auto) (0.0 - 2.1 %) 0.5 Gran # (2.0 - 13.7 k/mm3) 9.07 Lymph # (Auto) (0.6 - 3.8 K/mm3) 0.35 L [place] # (Auto) (0.11 - 0.59 K/mm3) 1.07 H Eos # (Auto) (0.0 - 0.4 K/mm3) 0.01 Baso # (Auto) (0.0 - 0.1 K/mm3) 0.06 Add Manual Diff (CRITERIA DIFF/SCN) MAN DIFF IN DICATED Total Counted (100 #CELLS) 100 Immature Gran % (0.0 - 2.0 %) 7.9 H Seg Neutrophils % (40 - 75 %) 86 H Lymphocytes % (Manual) (18.7 - 40.6 %) 2 L Atypical Lymphs % (0 - 0 %) 1 H Monocytes % (Manual) (3.8 - 11.4 %) 5 Nucleated RBC % (0.0 - 1.0 /100WBC%) 1.3 H Metamyelocytes (0 - 2 %) 3 H Myelocytes (0 - 1 %) 3 H Nucleated RBCs # (0.0 - 0.05 K/mm3) 0.15 H Platelet Estimate (ADEQUATE ON SCAN) SL DECR Polychromasia (NONE ON SCAN) SLIGHT Anisocytosis (NONE ON SCAN) SLIGHT Ovalocytes (NONE ON SCAN) FEW Laboratory Tests 04/28 0545 Miscellaneous Maternal Serum HCG (0 - 3 mi-IU/ML) <1 Laboratory Tests 04/28 1418 Other Body Source Peritoneal Color (COLORLESS DESCRIP.) STRAW Peritoneal Appearance (CLEAR DESCRIP.) CLEAR Peritoneal WBC (0 - 300 #/mm3) 126 Peritoneal RBC (0 - 0 #/mm3) 495 H [place] Polynucl WBCs (0 - 49 %) 78 H [place] Lymphocytes (0 - 25 %) 12 Peritoneal Monocytes (0 - 71 %) 10 [place] Mesothelial (NONE) RARE [place] Macrophages (NONE) FEW Laboratory Tests 04/28 1400 Urines Urine Color (YELLOW DESCRIPT) YELLOW Urine Appearance (CLEAR DESCRIPT) CLEAR Urine pH (4.6 - 8.0 pH UNITS) 6.0 Ur Specific [place] (1.001 - 1.035 SG) 1.014 Urine Protein (<30 (1+) mg/dL) NEGATIVE (0) Urine Glucose (UA) ((NEG) 0 mg/dL) NEGATIVE (0 ) Urine Ketones ((NEG) 0 mg/dL) 0 (NEG) Urine Blood ((NEG) 0 mg/DL) NEGATIVE (0) Urine Nitrite (NEG SCREEN) NEGATIVE (0) Urine Bilirubin ((NEG) 0 mg/dL) NEGATIVE (0) Urine Urobilinogen (<2.0 (1+) mg/dL) NORMAL (0) Ur Leukocyte Esterase ((NEG) 0 Leuk/mcL) NEGATI VE (0) Urine RBC (0 - 3 #RBC/HPF) 0-3 Urine WBC (0 - 3 #WBC/HPF) 0-3 Ur Squamous Epith Cells (NONE - SQepi /HPF) RAR E >0 Urine Bacteria (NONE - FEW /HPF) FEW >1 Urine Culture Screen (Cult byWBC Criteria) Crit NOTmet CULT-N/A Urine Comment (SpecComment Notes) MONROY SPEC Diagnosis, Assessment Plan Free Text DxA P Notes Free Text DxA P Notes: Patient with cirrhosis non c ompliant with hx of esophageal varices who presents with anemia and hematemesis to an OSH - currently on PPI and octreotide drips. Recommend EGD today to evalute for varices and n eed for possible banding Recommend paracentesis due to ascites-- will need diuretics on discharge if BP able to hold Monitor H/H for now Lactulose TID for encephalopathy Recommend albumin if low BPs Check for SBP with paracentesis If bleeding persists then consider bleeding scan Electronically Signed by Sandy South MD on at 2350 RPT #:[id number] END OF REPORT 2019-04-28 17:21:00-00:[address] [facility] ([facility]) Hospitalist Progress Note REPORT#:[id number] REPORT STATUS: Signed DATE:04/28/19 TIME: 172 PATIENT: AMAURI CAPELLAN UNIT #: [id number] ROOM[address]BED: [address] : [birth year] AGE: 48 SEX: F ATTEND: Jenny Cruz ADM AUTHOR: Vanessa Webb MD * ALL edits or amendments must be made on the el [employer] document * Subjective Free Text Subj Notes Free Subj Notes: pt s/p transfusion S/p EGD Objective General VS/I O: Vital Signs: Date Time Temp Pulse Resp B/P B/P Pulse O2 O2 F low FiO2 Mean Ox Delivery Rate 04/28 1628 66 15 98 09/ 1627 67 22 105/59 78 98 09/ 1624 66 19 104/59 79 98 09/ 1621 67 22 103/55 74 98 09/24 1618 74 39 101/59 72 98 09/ 1615 67 22 98/54 73 98 09/24 1612 67 34 98/52 72 98 09/ 1609 66 18 109/58 78 99 09/ 1606 68 17 103/56 76 98 09/24 1603 66 18 101/51 72 98 09/ 1600 72 29 93/55 69 98 09/24 1557 66 24 102/58 76 99 09/ 1554 67 20 105/58 77 98 09/24 1551 67 13 103/58 77 98 09/24 1548 71 25 99/58 75 98 09/24 1545 70 21 102/52 74 98 09/24 1542 72 16 114/58 78 98 09/24 1540 77 14 121/57 82 97 09/24 1536 70 32 99/57 75 98 09/24 1533 68 19 105/58 75 98 09/24 1530 69 15 100/59 77 98 09/24 1527 68 17 105/55 74 99 09/24 1524 69 17 101/56 75 99 09/24 1521 69 19 105/57 78 98 09/24 1518 71 26 107/57 80 99 09/24 1515 72 16 108/58 78 99 09/24 1512 68 21 107/60 77 99 09/24 1509 69 20 107/57 77 99 09/24 1506 67 22 104/55 74 99 09/24 1503 67 19 105/56 75 99 09/24 1500 67 32 105/56 73 99 09/24 1457 67 21 103/57 74 98 09/24 1454 66 16 100/55 73 99 09/24 1451 71 22 105/56 76 98 09/24 1448 68 17 101/55 74 99 09/24 1445 68 28 102/58 75 99 09/24 1442 68 24 105/59 76 98 09/24 1439 67 24 95/57 72 99 09/24 1436 69 18 104/59 80 99 09/24 1433 70 20 107/59 78 99 09/24 1430 70 16 106/57 77 98 09/24 1427 68 19 105/59 76 98 09/24 1424 68 15 103/60 77 98 09/24 1421 69 19 103/59 77 99 09/24 1418 72 18 103/62 78 98 09/24 1415 71 17 108/60 80 98 09/24 1412 69 18 105/60 78 99 09/24 1409 68 19 107/60 78 97 09/24 1406 72 18 110/58 78 97 09/24 1403 68 22 96/55 73 99 09/24 1400 70 25 98/54 71 99 09/24 1357 71 32 97/53 69 98 09/24 1354 71 20 97/55 71 98 09/24 1351 69 19 96/55 71 99 09/24 1348 68 17 97/55 72 98 09/24 1345 75 19 93/51 67 99 09/24 1342 80 27 112/65 84 97 09/24 1339 79 26 105/61 78 99 09/24 1336 70 23 95/50 67 99 09/24 1333 72 24 102/58 77 98 09/24 1330 68 20 102/57 77 98 09/24 1327 69 32 102/59 78 98 09/24 1324 76 22 94/53 71 99 09/24 1321 71 22 100/55 73 99 09/24 1318 71 16 99/57 76 98 09/24 1315 67 23 98/54 71 98 09/24 1312 68 17 101/56 73 99 09/24 1309 68 17 101/55 72 99 09/24 1306 71 21 97/53 70 99 09/24 1303 76 26 92/53 68 98 09/24 1300 79 30 100/56 75 99 09/24 1257 70 18 97/56 73 98 09/24 1254 70 23 95/53 70 98 09/24 1251 71 17 92/55 68 98 09/24 1248 80 31 105/57 76 98 09/24 1245 70 17 98/55 73 98 09/24 1242 70 27 94/53 71 98 09/24 1239 71 28 94/56 70 98 09/24 1236 72 25 98/60 70 98 09/24 1233 73 35 87/52 66 97 09/24 1230 71 25 98/54 73 97 09/24 1227 73 27 95/54 72 98 09/24 1224 75 28 98/55 74 97 09/24 1221 73 27 104/55 73 98 09/24 1218 71 24 98/55 74 98 09/24 1215 74 20 97/50 69 98 09/24 1212 76 32 97/51 71 98 09/24 1209 75 40 104/58 76 98 09/24 1206 76 29 96/55 73 98 09/24 1203 79 27 91/52 67 98 09/24 1200 73 18 105/59 76 98 09/24 1157 75 17 93/50 67 98 09/24 1154 76 18 93/52 69 97 09/24 1151 75 18 108/64 80 97 09/24 1148 77 22 108/60 79 97 09/24 1145 79 22 107/60 75 97 09/24 1139 77 18 107/62 78 96 09/24 1136 80 17 108/66 80 96 09/24 1133 80 16 110/65 80 95 09/24 1130 82 15 116/60 82 94 09/24 1128 94 21 119/59 83 92 09/24 1115 81 28 144/94 115 100 09/24 1103 62 26 100 09/24 1100 47 27 102/53 73 100 09/24 1045 72 19 103/64 79 97 09/24 1030 79 25 104/63 78 97 09/24 1015 79 15 110/61 81 94 09/24 1000 75 14 85/49 63 95 09/24 0945 77 14 86/48 62 92 09/24 0930 78 13 89/50 65 90 09/24 0915 80 14 83/46 60 91 09/24 0901 76 13 85/46 59 93 09/24 0900 77 13 85/46 59 93 09/24 0845 85 16 100/59 76 90 09/24 0830 80 13 97/56 71 93 09/24 0815 81 13 98/53 68 93 09/24 0800 81 13 97/54 72 92 09/24 0756 93 Room air 09/24 0745 76 14 99/58 75 96 09/24 0730 73 14 95/52 70 92 09/24 0715 76 17 100/55 72 95 09/24 0700 86 14 102/54 74 94 09/24 0645 84 13 98/56 72 92 09/24 0630 87 15 93/52 69 91 09/24 0615 90 11 87/49 62 91 09/24 0600 91 11 89/50 64 92 09/24 0545 93 13 92/51 68 93 09/24 0530 91 15 96/52 71 92 09/24 0515 92 15 101/53 70 93 09/24 0507 93 Room air 09/24 0500 88 15 97/55 73 94 09/24 0445 83 11 89/51 65 96 09/24 0430 92 21 94/55 69 92 09/24 0415 96 29 88/53 65 93 09/24 0400 37.6 98 31 93/50 67 96 09/24 0345 37.5 98 23 93/55 68 09/24 0330 99 20 103/63 78 96 09/24 0315 100 22 100/56 74 97 09/24 0300 99 19 97/53 72 94 09/24 0245 106 30 109/68 83 96 09/24 0230 102 18 106/65 80 91 09/24 0215 109 23 85/46 61 95 09/24 0200 115 21 96/51 70 95 09/24 0145 112 22 98/54 74 95 09/24 0130 108 19 107/68 83 94 09/24 0115 109 20 113/69 86 96 09/24 0100 120 22 97/55 71 96 09/24 0045 109 17 112/63 79 98 09/24 0030 37.1 117 24 100/59 76 98 09/24 0015 113 17 94/53 69 98 09/24 0000 37.2 114 19 112/68 83 96 09/23 2345 115 19 117/75 92 97 09/23 2330 115 19 117/73 88 98 09/23 2315 37.2 113 26 143/76 100 98 09/23 2200 37.1 114 27 124/67 86 100 Room air 09/23 2150 117 25 112/65 80 100 Room air 09/23 2135 117 24 98/54 68 100 Room air 09/23 2125 36.6 119 24 97/53 67 100 Room air 09/23 2116 118 19 84/48 60 100 Room air 09/ 2110 36.8 119 23 77/40 52 100 Nasal 2.000 000 cannula 04/275 116 24 93/48 63 100 Nasal 2.974749 cannula 04/27 2000 117 24 99/59 72 99 Nasal 2.070837 cannula 04/27 1930 36.9 132 20 79/46 57 100 Room air 24 hour I O ending at 0700: 04/28 0700 04/27 1900 Intake Total 2151.70 Output Total Balance 2151.70 Intake, IV 1801.70 Intake, 350 Packed Cells Number 1 Bowel Movements Number Voids 4 Patient 74.091 kg Weight Weight Stated/Reported Measurement Method Patient Weight Weight (lb): Weight (oz): Weight (kg): 74.091 Medications: Active Meds + DC'd Last 24 Hrs Albumin Human 200 ML ONCE ONE IV (DC) Thiamine HCl 100 MG Q24H IV Sodium Chloride 100 ML Furosemide 20 MG BLOOD-DOSE AFTER IV (CKD) Sodium Chloride 250 ML ASDIR IV Lidocaine HCl 0 .STK-MED ONE .ROUTE (DC) Propofol 20 ML .STK-MED ONE IV (DC) Mupirocin 1 APPLIC BID NASAL Albumin Human 200 ML Q1H IV (DC) Hydrocortisone Sodium Succinate 100 MG Q12HR IV (DC) Lactulose 300 ML ONCE ONE RECTAL (DC) Sodium Chloride 700 ML Calcium Gluconate 1,000 MG ASDIR PRN IV Sodium Chloride 100 ML Lactulose 1,000 ML ONCE ONE RECTAL (CAN) Magnesium Sulfate 50 ML ASDIR PRN IV Magnesium Sulfate/Dextrose 100 ML ASDIR PRN IV Ondansetron HCl 4 MG Q6H PRN PRN IV Potassium Chloride 20 MEQ ASDIR PRN PO Potassium Chloride 40 MEQ ASDIR PRN PO Potassium Chloride 40 MEQ ASDIR PRN PO Potassium Chloride 200 ML ASDIR PRN IV Potassium Chloride 400 ML ASDIR PRN IV Potassium Chloride 400 ML ASDIR PRN IV Potassium Chloride 100 ML ASDIR PRN IV Potassium Chloride 200 ML ASDIR PRN IV Potassium Chloride 200 ML ASDIR PRN IV Potassium Phos/Sodium Phos 1 PKT ASDIR PRN PO (C KD) Potassium Phosphate 15 MM ASDIR PRN IV (CKD) Sodium Chloride 250 ML Potassium Phosphate 30 MM ASDIR PRN IV (CKD) Sodium Chloride 500 ML Sodium Chloride 250 ML ASDIR IV Ceftriaxone Sodium 1 GM BEDTIME IV Sterile Water 10 ML Albuterol Sulfate 2.5 MG RTQ6H PRN PRN INH Dextrose/Water 25 ML ASDIR PRN IV Glucagon 1 MG ASDIR PRN IM Glucose Polymer 15 GM ASDIR PRN PO Norepinephrine/Dextrose 250 ML ASDIR IV Octreotide Acetate 500 MCG ASDIR IV (CKD) Sodium Chloride 249 ML Pantoprazole Sodium 80 MG ASDIR IV (CKD) Sodium Chloride 100 ML Calcium Gluconate 1,000 MG X1ED STA IV (DC) Sodium Chloride 100 ML Octreotide Acetate 500 MCG .[id number] ONE IV (DC) Sodium Chloride 249 ML Pantoprazole Sodium 80 MG X1ED STA IV (DC) Sodium Chloride 100 ML Physical Exam General appearance: alert, awake ENT: moist mucosal membranes Neck: supple/no meningismus Cardiovascular: regular rate rhythm Respiratory: decreased breath sounds Abdomen: ascites, distended Extremities: moves all Results Findings/Data: Laboratory Tests 04/27 2034 Blood Gas Puncture Site (DESCRIPTION Site) Venous VBG pH (7.32 - 7.42 pH units) 7.16 L VBG pCO2 (41 - 51 mmHg) 23 L VBG pO2 (25 - 40 mmHg) 23 L VBG HCO3 (24 - 28 mmol/L) 8.3 L O2 Delivery Method (DESCRIPTION COMMENT) DE Laboratory Tests 04/28 04/28 04/28 1020 0545 0330 Chemistry Sodium (133 - 144 mmol/L) 139.0 Potassium (3.5 - 5.1 mmol/L) 3.4 L Chloride (95 - 105 mmol/L) 110 H Carbon Dioxide (21 - 32 mmol/L) 17 L Anion Gap (4.0 - 15.0 GAP calc) 12.0 BUN (7 - 18 MG/DL) 58 H Creatinine (0.55 - 1.30 MG/DL) 1.35 H Glucose (70 - 110 MG/DL) 133 H Lactic Acid (0.4 - 2.0 mmol/L) 1.6 Calcium (8.5 - 10.1 MG/DL) 7.5 L Troponin I (0.000 - 0.045 NG/ML) 0.141 *H Specimen Appearance (1 NORMAL Index/DL) 2 TRACE 2-5 MG Specimen Hemolysis (1 NORMAL Index/DL) 1 NORMAL <10 MG 04/28 04/28 04/27 04/27 0107 7 5490 5640 Chemistry Lactic Acid (0.4 - 2.0 mmol/L) 2.9 *H 6.2 *H Ionized Calcium Javed (1.13 - 1.32 mmol/L) 0.83 L Troponin I (0.000 - 0.045 NG/ML) 0.304 *H Procalcitonin (0.00 - 0.10 NG/ML) 1.21 H TSH (0.340 - 4.820 mc IU/ML) 1.440 04/27 Chemistry Sodium (133 - 144 mmol/L) 136.0 Potassium (3.5 - 5.1 mmol/L) 4.5 Chloride (95 - 105 mmol/L) 108 H Carbon Dioxide (21 - 32 mmol/L) 8 *L Anion Gap (4.0 - 15.0 GAP calc) 20.0 H BUN (7 - 18 MG/DL) 57 H Creatinine (0.55 - 1.30 MG/DL) 1.70 H Glomerular Filtr Rate (>60 estGFR) 32 L Glucose (70 - 110 MG/DL) 94 Calcium (8.5 - 10.1 MG/DL) 7.0 L Total Bilirubin (0.00 - 1.00 MG/DL) 0.61 Direct Bilirubin (0.00 - 0.30 MG/DL) 0.37 H Indirect Bilirubin (0.2 - 1.3 MG/DL) 0.24 AST (15 - 37 Unit/L) 46 H ALT (12 - 78 Unit/L) 24 Total Alk Phosphatase (45 - 117 Unit/L) 138 H Troponin I (0.000 - 0.045 NG/ML) 0.064 *H Total Protein (6.4 - 8.2 G/DL) 5.2 L Albumin (3.4 - 5.0 G/DL) 1.5 L Albumin/Globulin Ratio (1.2 - 2.2 RATIO) 0.4 L Specimen Appearance (1 NORMAL Index/DL) 1 BRIAN L <2 MG Specimen Hemolysis (1 NORMAL Index/DL) 1 BRIAN L <10 MG Laboratory Tests 04/27 Coagulation PT (9.4 - 12.5 SECONDS) 16.6 H 21.3 H INR (0.88 - 1.13 INR Unit) 1.46 H 1.87 H PTT (Miguel) (24 - 37.7 SECONDS) 21.3 L 30.8 Fibrinogen (192 - 485 mg/dL) 232 Laboratory Tests 04/28 1157 Hematology WBC (4.1 - 12.1 K/mm3) 9.7 RBC (3.8 - 5.5 M/mm3) 2.65 L Hgb (10.6 - 15.8 G/DL) 7.7 L Hct (31.8 - 47.4 %) 23.2 L MCV (80.1 - 101.1 fL) 87.5 MCH (25.3 - 35.3 pg) 29.1 MCHC (32.7 - 35.1 G/DL) 33.2 RDW (12.2 - 16.4 %) 15.7 Plt Count (155 - 337 K/mm3) 92 L MPV (6.8 - 11.2 fL) 11.5 H Gran % (37.8 - 82.6 %) 81.8 Lymph % (Auto) (14.1 - 45.4 %) 2.8 L [place] % (Auto) (2.5 - 11.7 %) 9.7 Eos % (Auto) (0.0 - 6.2 %) 0.0 Baso % (Auto) (0.0 - 2.1 %) 0.1 Gran # (2.0 - 13.7 k/mm3) 7.93 Lymph # (Auto) (0.6 - 3.8 K/mm3) 0.27 L [place] # (Auto) (0.11 - 0.59 K/mm3) 0.94 H Eos # (Auto) (0.0 - 0.4 K/mm3) 0.00 Baso # (Auto) (0.0 - 0.1 K/mm3) 0.01 Add Manual Diff (CRITERIA DIFF/SCN) MAN DIFF IN DICATED Total Counted (100 #CELLS) 100 Immature Gran % (0.0 - 2.0 %) 5.6 H Seg Neutrophils % (40 - 75 %) 88 H Lymphocytes % (Manual) (18.7 - 40.6 %) 5 L Monocytes % (Manual) (3.8 - 11.4 %) 3 L Nucleated RBC % (0.0 - 1.0 /100WBC%) 0.9 Metamyelocytes (0 - 2 %) 1 Myelocytes (0 - 1 %) 3 H Nucleated RBCs # (0.0 - 0.05 K/mm3) 0.09 H Platelet Estimate (ADEQUATE ON SCAN) SL DECR Polychromasia (NONE ON SCAN) SLIGHT Anisocytosis (NONE ON SCAN) SLIGHT 04/28 0545 Hematology WBC (4.1 - 12.1 K/mm3) 11.5 RBC (3.8 - 5.5 M/mm3) 3.35 L Hgb (10.6 - 15.8 G/DL) 9.7 L Hct (31.8 - 47.4 %) 28.8 L MCV (80.1 - 101.1 fL) 86.0 MCH (25.3 - 35.3 pg) 29.0 MCHC (32.7 - 35.1 G/DL) 33.7 RDW (12.2 - 16.4 %) 15.3 Plt Count (155 - 337 K/mm3) 110 L MPV (6.8 - 11.2 fL) 11.8 H Gran % (37.8 - 82.6 %) 79.1 Lymph % (Auto) (14.1 - 45.4 %) 3.1 L [place] % (Auto) (2.5 - 11.7 %) 9.3 Eos % (Auto) (0.0 - 6.2 %) 0.1 Baso % (Auto) (0.0 - 2.1 %) 0.5 Gran # (2.0 - 13.7 k/mm3) 9.07 Lymph # (Auto) (0.6 - 3.8 K/mm3) 0.35 L [place] # (Auto) (0.11 - 0.59 K/mm3) 1.07 H Eos # (Auto) (0.0 - 0.4 K/mm3) 0.01 Baso # (Auto) (0.0 - 0.1 K/mm3) 0.06 Add Manual Diff (CRITERIA DIFF/SCN) MAN DIFF IN DICATED Total Counted (100 #CELLS) 100 Immature Gran % (0.0 - 2.0 %) 7.9 H Seg Neutrophils % (40 - 75 %) 86 H Lymphocytes % (Manual) (18.7 - 40.6 %) 2 L Atypical Lymphs % (0 - 0 %) 1 H Monocytes % (Manual) (3.8 - 11.4 %) 5 Nucleated RBC % (0.0 - 1.0 /100WBC%) 1.3 H Metamyelocytes (0 - 2 %) 3 H Myelocytes (0 - 1 %) 3 H Nucleated RBCs # (0.0 - 0.05 K/mm3) 0.15 H Platelet Estimate (ADEQUATE ON SCAN) SL DECR Polychromasia (NONE ON SCAN) SLIGHT Anisocytosis (NONE ON SCAN) SLIGHT Ovalocytes (NONE ON SCAN) FEW 04/275 Hematology WBC (4.1 - 12.1 K/mm3) 11.6 RBC (3.8 - 5.5 M/mm3) 1.88 *L Hgb (10.6 - 15.8 G/DL) 5.6 *L Hct (31.8 - 47.4 %) 17.9 *L MCV (80.1 - 101.1 fL) 95.2 MCH (25.3 - 35.3 pg) 29.8 MCHC (32.7 - 35.1 G/DL) 31.3 L RDW (12.2 - 16.4 %) 15.1 Plt Count (155 - 337 K/mm3) 120 L MPV (6.8 - 11.2 fL) 12.1 H Gran % (37.8 - 82.6 %) 76.1 Lymph % (Auto) (14.1 - 45.4 %) 2.7 L [place] % (Auto) (2.5 - 11.7 %) 10.5 Eos % (Auto) (0.0 - 6.2 %) 0.2 Baso % (Auto) (0.0 - 2.1 %) 0.2 Gran # (2.0 - 13.7 k/mm3) 8.82 Lymph # (Auto) (0.6 - 3.8 K/mm3) 0.31 L [place] # (Auto) (0.11 - 0.59 K/mm3) 1.21 H Eos # (Auto) (0.0 - 0.4 K/mm3) 0.02 Baso # (Auto) (0.0 - 0.1 K/mm3) 0.02 Add Manual Diff (CRITERIA DIFF/SCN) MAN DIFF IN DICATED Total Counted (100 #CELLS) 100 Immature Gran % (0.0 - 2.0 %) 10.3 H Seg Neutrophils % (40 - 75 %) 79 H Lymphocytes % (Manual) (18.7 - 40.6 %) 2 L Atypical Lymphs % (0 - 0 %) 1 H Monocytes % (Manual) (3.8 - 11.4 %) 12 H Eosinophils % (Manual) (0.0 - 4.1 %) 1 Nucleated RBC % (0.0 - 1.0 /100WBC%) 1.7 H Metamyelocytes (0 - 2 %) 2 Myelocytes (0 - 1 %) 3 H Nucleated RBCs # (0.0 - 0.05 K/mm3) 0.20 H Platelet Estimate (ADEQUATE ON SCAN) SL DECR Polychromasia (NONE ON SCAN) SLIGHT Anisocytosis (NONE ON SCAN) MOD H Microcytosis (NONE ON SCAN) SLIGHT Macrocytosis (NONE ON SCAN) SLIGHT Ovalocytes (NONE ON SCAN) FEW Ethan Cells (NONE ON SCAN) FEW Acanthocytes (Spur) (NONE ON SCAN) FEW 04/27 1945 Hematology WBC (4.1 - 12.1 K/mm3) 14.6 H RBC (3.8 - 5.5 M/mm3) 1.07 *L Hgb (10.6 - 15.8 G/DL) 3.2 *L Hct (31.8 - 47.4 %) 10.8 *L MCV (80.1 - 101.1 fL) 100.9 MCH (25.3 - 35.3 pg) 29.9 MCHC (32.7 - 35.1 G/DL) 29.6 L RDW (12.2 - 16.4 %) 16.5 H Plt Count (155 - 337 K/mm3) 217 MPV (6.8 - 11.2 fL) 12.5 H Gran % (37.8 - 82.6 %) 71.3 Lymph % (Auto) (14.1 - 45.4 %) 4.2 L [place] % (Auto) (2.5 - 11.7 %) 12.6 H Eos % (Auto) (0.0 - 6.2 %) 0.3 Baso % (Auto) (0.0 - 2.1 %) 0.0 Gran # (2.0 - 13.7 k/mm3) 10.44 Lymph # (Auto) (0.6 - 3.8 K/mm3) 0.61 [place] # (Auto) (0.11 - 0.59 K/mm3) 1.85 H Eos # (Auto) (0.0 - 0.4 K/mm3) 0.04 Baso # (Auto) (0.0 - 0.1 K/mm3) 0.00 Add Manual Diff (CRITERIA DIFF/SCN) MAN DIFF IN DICATED Total Counted (100 #CELLS) 100 Immature Gran % (0.0 - 2.0 %) 11.6 H Seg Neutrophils % (40 - 75 %) 82 H Lymphocytes % (Manual) (18.7 - 40.6 %) 9 L Atypical Lymphs % (0 - 0 %) 2 H Monocytes % (Manual) (3.8 - 11.4 %) 2 L Nucleated RBC % (0.0 - 1.0 /100WBC%) 1.6 H Myelocytes (0 - 1 %) 4 H Promyelocytes (0 - 0 %) 1 H Nucleated RBCs # (0.0 - 0.05 K/mm3) 0.24 H Platelet Estimate (ADEQUATE ON SCAN) ADEQ Polychromasia (NONE ON SCAN) SLIGHT Anisocytosis (NONE ON SCAN) MOD H Ethan Cells (NONE ON SCAN) FEW Hem Pathologist Report (COMMENTS EXTERNAL) Laboratory Tests 04/28 0545 Miscellaneous Maternal Serum HCG (0 - 3 mi-IU/ML) <1 Laboratory Tests 04/28 1418 Other Body Source Peritoneal Color (COLORLESS DESCRIP.) STRAW Peritoneal Appearance (CLEAR DESCRIP.) CLEAR Peritoneal WBC (0 - 300 #/mm3) 126 Peritoneal RBC (0 - 0 #/mm3) 495 H Laboratory Tests 04/28 1400 Urines Urine Color (YELLOW DESCRIPT) YELLOW Urine Appearance (CLEAR DESCRIPT) CLEAR Urine pH (4.6 - 8.0 pH UNITS) 6.0 Ur Specific [place] (1.001 - 1.035 SG) 1.014 Urine Protein (<30 (1+) mg/dL) NEGATIVE (0) Urine Glucose (UA) ((NEG) 0 mg/dL) NEGATIVE (0 ) Urine Ketones ((NEG) 0 mg/dL) 0 (NEG) Urine Blood ((NEG) 0 mg/DL) NEGATIVE (0) Urine Nitrite (NEG SCREEN) NEGATIVE (0) Urine Bilirubin ((NEG) 0 mg/dL) NEGATIVE (0) Urine Urobilinogen (<2.0 (1+) mg/dL) NORMAL (0) Ur Leukocyte Esterase ((NEG) 0 Leuk/mcL) NEGATI VE (0) Urine RBC (0 - 3 #RBC/HPF) 0-3 Urine WBC (0 - 3 #WBC/HPF) 0-3 Ur Squamous Epith Cells (NONE - SQepi /HPF) RAR E >0 Urine Bacteria (NONE - FEW /HPF) FEW >1 Urine Culture Screen (Cult byWBC Criteria) Crit NOTmet CULT-N/A Urine Comment (SpecComment Notes) MONROY SPEC Diagnosis, Assessment Plan Free Text DxA P Notes Free Text DxA P Notes: 1. Septic shock on presentation with lactic acid more than 6. We will continue sepsis protocol. Continue antib iotics. Follow up cultures. 2. Upper gastrointestinal bleed secondar y to varices. Continue Sandostatin and Protonix. s/p EGD 3. Severe acute blood loss anemia. will monitor and keep hb above 7 4. Severe ascites. IR consulted for paracentesis when the patient is stable. 5. Increase in troponin, possibly demand ischemi a. cardio following. 6. The patient has hepatic encephalopathy. We wi ll continue lactulose to make sure at least 3 bowel movements per day. 7. We will do deep venous thrombosis and gastroi ntestinal prophylaxes. Electronically Signed by Vanessa Webb MD on 04/06 11/21 at 1725 RPT #:[id number] END OF REPORT 2019-04-28 16:00:00-00:[address] [facility] ([facility]) Op/Inv Procedure Note - Brief REPORT#:[id number] REPORT STATUS: Signed DATE:04/28/19 TIME: 1600 PATIENT: AMAURI CAPELLAN UNIT #: [id number] ROOM/BED: [address] : [birth year] AGE: 48 SEX: F ATTEND: Jenny Cruz ADM AUTHOR: Shilo Tesfaye MD * ALL edits or amendments must be made on the el ectronic/computer document * Op/Inv Proc Note - Brief TEXT Brief Op/Inv Procedure Note Note details: Pre-procedure: Ascites Post-procedure: Same Procedure: US-guided paracentesis Primary Surgeon: __Dr. Tesfaye_ Assistants: None Anesthetic: Local; EBL: Less than 10 cc Specimens Removed: None Complications: None Drains: None Fluid Findings: Harrison clear. Please see full procedure report under imaging. Electronically Signed by Shilo Tesfaye MD on at 1600 RPT #:[id number] END OF REPORT 2019-04-28 12:14:00-00:00 [facility] Critical Care Consult Note REPORT#:[id number] REPORT STATUS: Signed DATE:04/28/19 TIME: 1214 PATIENT: AMAURI CAPELLAN UNIT #: [id number] ROOM/BED: [address] : [birth year] AGE: 48 SEX: F ATTEND: Jenny Cruz ADM AUTHOR: Andrew De Luna MD * ALL edits or amendments must be made on the el [employer]/computer document * History of Present Illness HPI Requesting clinician: hospitalist Reason for consult: CRITICAL CARE Chief complaint: HEMATEMESIS HPI: MRS CAPELLAN IS A 48 YO WF WHO PRESENTS TO [facility] WIT H A HX OF HEMATEMESIS AND HEMATOCHEZIA, SHE HAS HAD ISSUES LIKE THIS IN PAST AND HAS BEEN DX WITH PORTAL 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 SHE DENIES ANY F C CHEST PAIN OR SOB WHEEZING COUGH OR SPUTUM PRODUCTION. History - Adult longitudinal Past medical history: Reports: Anemia, Hypertension, Cirrhosis. 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 Skin: Denies: itching, laceration. Allergy/Immun: Denies: itching, rhinorrhea. Eyes: Denies: photophobia, swelling. ENT: Denies: tongue pain, tongue swelling. Respiratory: Denies: SOLIZ (dyspnea on exertion), hemoptysis, n on productive cough, SOB, wheezing. Cardiovascular: Denies: chest pain, SOLIZ (dyspnea on exertion), e nickie, orthopnea. GI: Reports: hematemesis, hematochezia, nausea, vomi ting. Denies: melena. Objective Physical Exam: VS/I O: Last Documented: Result Date Time Pulse Ox 100 04/28 1103 Pulse 62 04/28 1103 Resp 26 04/28 1103 B/P 102/53 04/28 1100 B/P Mean 73 04/28 1100 O2 Delivery Room air 04/28 0756 Temp 37.6 04/28 0400 O2 Flow Rate 2.996676 04/27 2110 24 hour I O ending at 0700: 04/28 0700 04/27 1900 Intake Total 2151.70 Output Total Balance 2151.70 Intake, IV 1801.70 Intake, 350 Packed Cells Number 1 Bowel Movements Number Voids 4 Patient 74.091 kg Weight Weight Stated/Reported Measurement Method General appearance: alert, awake Head/Eyes: atraumatic, normocephalic, PERRL ENT: normal ear left, normal ear right, normal n ose Neck: full range of motion, non-tender, normal t hyroid Cardiovascular: normal heart sounds, normal S1 S 2, normal rate and rhythm Respiratory/Chest: decreased breath soun ds, aerating well, symmetric expansion Abdomen: ascites, soft, non-tender Extremities: no clubbing, no cyanosis, no edema Results: Findings/Data: Laboratory Tests 04/28/19 0545: [Embedded Image Not Available] 04/27/192114: [Embedded Image Not Available] 04/27/191944: [Embedded Image Not Available] Laboratory Tests 04/27 2034 Blood Gas Puncture Site (DESCRIPTION Site) Venous VBG pH (7.32 - 7.42 pH units) 7.16 L VBG pCO2 (41 - 51 mmHg) 23 L VBG pO2 (25 - 40 mmHg) 23 L VBG HCO3 (24 - 28 mmol/L) 8.3 L O2 Delivery Method (DESCRIPTION COMMENT) DE Laboratory Tests 04/28 04/28 04/28 1020 0545 0330 Chemistry Sodium (133 - 144 mmol/L) 139.0 Potassium (3.5 - 5.1 mmol/L) 3.4 L Chloride (95 - 105 mmol/L) 110 H Carbon Dioxide (21 - 32 mmol/L) 17 L Anion Gap (4.0 - 15.0 GAP calc) 12.0 BUN (7 - 18 MG/DL) 58 H Creatinine (0.55 - 1.30 MG/DL) 1.35 H Glucose (70 - 110 MG/DL) 133 H Lactic Acid (0.4 - 2.0 mmol/L) 1.6 Calcium (8.5 - 10.1 MG/DL) 7.5 L Troponin I (0.000 - 0.045 NG/ML) 0.141 *H Specimen Appearance (1 NORMAL Index/DL) 2 TRACE 2-5 MG Specimen Hemolysis (1 NORMAL Index/DL) 1 BRIAN L <10 MG 04/28 04/28 04/27 04/27 0107 0107 2234 2114 Chemistry Lactic Acid (0.4 - 2.0 mmol/L) 2.9 *H 6.2 *H Ionized Calcium Javed (1.13 - 1.32 mmol/L) 0.83 L Troponin I (0.000 - 0.045 NG/ML) 0.304 *H Procalcitonin (0.00 - 0.10 NG/ML) 1.21 H TSH (0.340 - 4.820 mc IU/ML) 1.440 04/27 Chemistry Sodium (133 - 144 mmol/L) 136.0 Potassium (3.5 - 5.1 mmol/L) 4.5 Chloride (95 - 105 mmol/L) 108 H Carbon Dioxide (21 - 32 mmol/L) 8 *L Anion Gap (4.0 - 15.0 GAP calc) 20.0 H BUN (7 - 18 MG/DL) 57 H Creatinine (0.55 - 1.30 MG/DL) 1.70 H Glomerular Filtr Rate (>60 estGFR) 32 L Glucose (70 - 110 MG/DL) 94 Calcium (8.5 - 10.1 MG/DL) 7.0 L Total Bilirubin (0.00 - 1.00 MG/DL) 0.61 Direct Bilirubin (0.00 - 0.30 MG/DL) 0.37 H Indirect Bilirubin (0.2 - 1.3 MG/DL) 0.24 AST (15 - 37 Unit/L) 46 H ALT (12 - 78 Unit/L) 24 Total Alk Phosphatase (45 - 117 Unit/L) 138 H Troponin I (0.000 - 0.045 NG/ML) 0.064 *H Total Protein (6.4 - 8.2 G/DL) 5.2 L Albumin (3.4 - 5.0 G/DL) 1.5 L Albumin/Globulin Ratio (1.2 - 2.2 RATIO) 0.4 L Specimen Appearance (1 NORMAL Index/DL) 1 BRIAN L <2 MG Specimen Hemolysis (1 NORMAL Index/DL) 1 NORMAL <10 MG Laboratory Tests 04/27 Coagulation PT (9.4 - 12.5 SECONDS) 16.6 H 21.3 H INR (0.88 - 1.13 INR Unit) 1.46 H 1.87 H PTT (Miguel) (24 - 37.7 SECONDS) 21.3 L 30.8 Fibrinogen (192 - 485 mg/dL) 232 Laboratory Tests 04/28 0545 Hematology WBC (4.1 - 12.1 K/mm3) 11.5 RBC (3.8 - 5.5 M/mm3) 3.35 L Hgb (10.6 - 15.8 G/DL) 9.7 L Hct (31.8 - 47.4 %) 28.8 L MCV (80.1 - 101.1 fL) 86.0 MCH (25.3 - 35.3 pg) 29.0 MCHC (32.7 - 35.1 G/DL) 33.7 RDW (12.2 - 16.4 %) 15.3 Plt Count (155 - 337 K/mm3) 110 L MPV (6.8 - 11.2 fL) 11.8 H Gran % (37.8 - 82.6 %) 79.1 Lymph % (Auto) (14.1 - 45.4 %) 3.1 L [place] % (Auto) (2.5 - 11.7 %) 9.3 Eos % (Auto) (0.0 - 6.2 %) 0.1 Baso % (Auto) (0.0 - 2.1 %) 0.5 Gran # (2.0 - 13.7 k/mm3) 9.07 Lymph # (Auto) (0.6 - 3.8 K/mm3) 0.35 L [place] # (Auto) (0.11 - 0.59 K/mm3) 1.07 H Eos # (Auto) (0.0 - 0.4 K/mm3) 0.01 Baso # (Auto) (0.0 - 0.1 K/mm3) 0.06 Add Manual Diff (CRITERIA DIFF/SCN) MAN DIFF IN DICATED Total Counted (100 #CELLS) 100 Immature Gran % (0.0 - 2.0 %) 7.9 H Seg Neutrophils % (40 - 75 %) 86 H Lymphocytes % (Manual) (18.7 - 40.6 %) 2 L Atypical Lymphs % (0 - 0 %) 1 H Monocytes % (Manual) (3.8 - 11.4 %) 5 Nucleated RBC % (0.0 - 1.0 /100WBC%) 1.3 H Metamyelocytes (0 - 2 %) 3 H Myelocytes (0 - 1 %) 3 H Nucleated RBCs # (0.0 - 0.05 K/mm3) 0.15 H Platelet Estimate (ADEQUATE ON SCAN) SL DECR Polychromasia (NONE ON SCAN) SLIGHT Anisocytosis (NONE ON SCAN) SLIGHT Ovalocytes (NONE ON SCAN) FEW 04/27 2115 Hematology WBC (4.1 - 12.1 K/mm3) 11.6 RBC (3.8 - 5.5 M/mm3) 1.88 *L Hgb (10.6 - 15.8 G/DL) 5.6 *L Hct (31.8 - 47.4 %) 17.9 *L MCV (80.1 - 101.1 fL) 95.2 MCH (25.3 - 35.3 pg) 29.8 MCHC (32.7 - 35.1 G/DL) 31.3 L RDW (12.2 - 16.4 %) 15.1 Plt Count (155 - 337 K/mm3) 120 L MPV (6.8 - 11.2 fL) 12.1 H Gran % (37.8 - 82.6 %) 76.1 Lymph % (Auto) (14.1 - 45.4 %) 2.7 L [place] % (Auto) (2.5 - 11.7 %) 10.5 Eos % (Auto) (0.0 - 6.2 %) 0.2 Baso % (Auto) (0.0 - 2.1 %) 0.2 Gran # (2.0 - 13.7 k/mm3) 8.82 Lymph # (Auto) (0.6 - 3.8 K/mm3) 0.31 L [place] # (Auto) (0.11 - 0.59 K/mm3) 1.21 H Eos # (Auto) (0.0 - 0.4 K/mm3) 0.02 Baso # (Auto) (0.0 - 0.1 K/mm3) 0.02 Add Manual Diff (CRITERIA DIFF/SCN) MAN DIFF I NDICATED Total Counted (100 #CELLS) 100 Immature Gran % (0.0 - 2.0 %) 10.3 H Seg Neutrophils % (40 - 75 %) 79 H Lymphocytes % (Manual) (18.7 - 40.6 %) 2 L Atypical Lymphs % (0 - 0 %) 1 H Monocytes % (Manual) (3.8 - 11.4 %) 12 H Eosinophils % (Manual) (0.0 - 4.1 %) 1 Nucleated RBC % (0.0 - 1.0 /100WBC%) 1.7 H Metamyelocytes (0 - 2 %) 2 Myelocytes (0 - 1 %) 3 H Nucleated RBCs # (0.0 - 0.05 K/mm3) 0.20 H Platelet Estimate (ADEQUATE ON SCAN) SL DECR Polychromasia (NONE ON SCAN) SLIGHT Anisocytosis (NONE ON SCAN) MOD H Microcytosis (NONE ON SCAN) SLIGHT Macrocytosis (NONE ON SCAN) SLIGHT Ovalocytes (NONE ON SCAN) FEW Ethan Cells (NONE ON SCAN) FEW Acanthocytes (Spur) (NONE ON SCAN) FEW 04/27 1945 Hematology WBC (4.1 - 12.1 K/mm3) 14.6 H RBC (3.8 - 5.5 M/mm3) 1.07 *L Hgb (10.6 - 15.8 G/DL) 3.2 *L Hct (31.8 - 47.4 %) 10.8 *L MCV (80.1 - 101.1 fL) 100.9 MCH (25.3 - 35.3 pg) 29.9 MCHC (32.7 - 35.1 G/DL) 29.6 L RDW (12.2 - 16.4 %) 16.5 H Plt Count (155 - 337 K/mm3) 217 MPV (6.8 - 11.2 fL) 12.5 H Gran % (37.8 - 82.6 %) 71.3 Lymph % (Auto) (14.1 - 45.4 %) 4.2 L [place] % (Auto) (2.5 - 11.7 %) 12.6 H Eos % (Auto) (0.0 - 6.2 %) 0.3 Baso % (Auto) (0.0 - 2.1 %) 0.0 Gran # (2.0 - 13.7 k/mm3) 10.44 Lymph # (Auto) (0.6 - 3.8 K/mm3) 0.61 [place] # (Auto) (0.11 - 0.59 K/mm3) 1.85 H Eos # (Auto) (0.0 - 0.4 K/mm3) 0.04 Baso # (Auto) (0.0 - 0.1 K/mm3) 0.00 Add Manual Diff (CRITERIA DIFF/SCN) MAN DIFF IN DICATED Total Counted (100 #CELLS) 100 Immature Gran % (0.0 - 2.0 %) 11.6 H Seg Neutrophils % (40 - 75 %) 82 H Lymphocytes % (Manual) (18.7 - 40.6 %) 9 L Atypical Lymphs % (0 - 0 %) 2 H Monocytes % (Manual) (3.8 - 11.4 %) 2 L Nucleated RBC % (0.0 - 1.0 /100WBC%) 1.6 H Myelocytes (0 - 1 %) 4 H Promyelocytes (0 - 0 %) 1 H Nucleated RBCs # (0.0 - 0.05 K/mm3) 0.24 H Platelet Estimate (ADEQUATE ON SCAN) ADEQ Polychromasia (NONE ON SCAN) SLIGHT Anisocytosis (NONE ON SCAN) MOD H Ethan Cells (NONE ON SCAN) FEW Hem Pathologist Report (COMMENTS EXTERNAL) Laboratory Tests 04/28 0545 Miscellaneous Maternal Serum HCG (0 - 3 mi-IU/ML) <1 Microbiology: 04/27 2358 NASAL: MSSA Surveillance Screen - REC D 04/27 2358 NASAL: MRSA Screen - RECD 04/27 2200 BLOOD: Blood Culture - RES 04/27 2200 BLOOD: Blood Culture - RES Radiology data: Recent Impressions: RADIOLOGY - XR ABDOMEN 1 V 04/27 2010 Report Impression - Status: SIGNED Entered: 04/27/20192046 Impression: Appearance of the abdomen is nearly nondiagnosti c secondary to patient's habitus. No definite prominent small b owel dilation is visualized. Impression By: [email or web address] - Lorena Patton RADIOLOGY - XR CHEST 1 V 04/27 2033 Report Impression - Status: SIGNED Entered: 04/27/20192108 IMPRESSION: No definite consolidation. Question vascular con gestion, evaluation limited by low lung volumes Nonspecific prominence of the upper mediastinum Impression By: [email or web address] - Lorena Patton CAT SCAN - CT ABD PELVIS W/O CONT 04/27 225 Report Impression - Status: SIGNED Entered: 04/27/2019 2340 IMPRESSION: Extensive ascites and a nodular cirrhotic appear ing liver. Cholelithiasis. No bowel obstruction or free air. Extensive wall thickening of the stomach. Endosc opic correlation recommended. Fluid containing umbilical hernia. Impression By: [email or web address] - Ailyn Álvarez Results: labs reviewed, vital signs stab le, x-ray personally reviewed, current med profile rev'd Treatment Prophylaxis Treatment Prophylaxis Oxygen: nasal cannula Lines: peripheral Anti-infectives: ceftriaxone Ulcer prophylaxis: pantoprazole Diagnosis, Assessment Plan Diagnosis, Assessment Plan Problem List/A P: 1. Upper GI bleed 2. Symptomatic anemia 3. Hemorrhagic shock Free Text A P: 04/28 THE PT SEEMS TO BE DOING FAIRLY WELL ON SUPPLEMENTAL O2 AND HAS HAD ENDOSCOPY. CERTAINLY I AM CONCERNED ABOUT HER LONG HX OF TOBACCO AND ETOH ABUSE. THERE IS EVIDENCE OF CIRRHOSIS AND ASCITES WITH P ROTAL HTN AND ONGOING DUODENITIS. WILL PLAN DW RN VIEWED CXR FLU WITH GI SERIAL H/H RX K at 1225 RPT #:[id number] END OF REPORT 2019-04-28 11:14:00-00:00 [id number] [place] [address] PATIENT NAME: AMAURI CAPELLAN ADMIT DATE: 9 ACCOUNT NO: [id number] ROOM NO: [id number].[id number] AGE: 48 REPORT TYPE: ELECTROCARDIOGRAM SEX: F ADMITTING PHYSICIAN:Jenny Cruz MD ATTENDING PHYSICIAN:Jenny Cruz MD Order: [id number] Test Reason : CHEST PAIN Test Date/Time Stamp: SatApr 28 2019 11:14:25 Blood Pressure : / mmHG Vent. Rate : 071 BPM Atrial Rate : 071 BPM P-R Int : 158 ms QRS Dur : 094 ms QT Int : 472 ms P-R-T Axes : 038 038 054 degree s QTc Int : 512 ms Normal sinus rhythm Prolonged QT Abnormal ECG No previous ECGs available Confirmed by JING GARCIA MD ([id number]) on 2018 7:09:05 AM Referred By: Oscar Mcleod Confirmed by:JING KEENAN MD at 0709 PATIENT NAME: AMAURI CAPELLAN 7182 2019-04-28 10:55:00-00:00 [id number] [place] [address] PATIENT NAME: AMAURI CAPELLAN ADMIT DATE: 9 ACCOUNT NO: [id number] ROOM NO: [place] [address] AGE: 48 REPORT TYPE: ENDOSCOPY REPORT SEX: F ADMITTING PHYSICIAN:Jenny Cruz MD ATTENDING PHYSICIAN:Jenny Cruz MD Patient Name: Amauri Capellan Attending MD: Sandy South MD Gender: Female Procedure Date No Time: 04/28/2019 Date of : 1970 Instrument Name: [id number] Referring Physician: Oscar Mcleod, Indications: Recent gastrointestinal bleeding, H ematemesis Medicines: Monitored Anesthesia Care Procedure: Upper GI endoscopy Complications: No immediate complications. Estim ated blood loss: Minimal. Pre-Sedation Assessment: Pre-Anesthesia Assessment: - Prior to the procedure, a History and Physica l was performed, and patient medications and allergies were reviewed . The patient's tolerance of previous anesthesia was also reviewed. The r isks and benefits of the procedure and the sedation options and risks we re discussed with the patient. All questions were answered, and infor med consent was obtained. Prior Anticoagulants: The patient has taken no previous anticoagulant or antiplatelet agents. ASA Grade Assessment: IV - A patient with severe systemic disease that is a constant threat to l edil. After reviewing the risks and benefits, the patient was deemed in s atisfactory condition to undergo the procedure. - H and P completed, I have examined the patien t on this date and have reviewed the medical history, drug history, and previous anesthesia experience. Results of the relevant diagnostic studies have been reviewed. Planned choice of anesthesia risk, co mplications, benefits and alternatives have been discussed. - Airway Examination: normal oropharyngeal airw ay and neck mobility. After obtaining informed consent, the endoscope was passed under direct visualization. Throughout the procedure, the pa tient's blood pressure, EKG, pulse, and oxygen saturations were monitor ed continuously. The Endoscope was introduced through the mouth, and advanced to the second part of duodenum. The upper GI endoscopy was ac complished without difficulty. The patient tolerated the procedure well. Findings: The upper third of the esophagus and m iddle third of the esophagus were normal. A post variceal banding scar was found in the l ower PATIENT NAME: AMAURI CAPELLAN 7182 third of the esophagus. The scar was unremarka ble in appearance. Portal hypertensive gastropathy was found in th e stomach. Retained fluid was found in the gastric fundus. Patchy moderate inflammation with hemorrhage characterized by friability was found in the du odenal bulb. Coagulation for hemostasis using argon pl asma was successful. The second portion of the duodenum was normal. Estimated Blood Loss: Estimated blood loss was m inimal. Impression: - Normal upper third of esophagus an d middle third of esophagus. - Scar in the lower third of the esophagus. - Portal hypertensive gastropathy. - Retained gastric fluid. - Duodenitis with hemorrhage. Treated with arg on plasma coagulation (APC). - Normal second portion of the duodenum. - No specimens collected. Recommendation: - Return patient to ICU for ongo ing care. - NPO. - Continue present medications. - Use Prilosec (omeprazole) 40 mg PO BID for 6 weeks. Procedure Code(s): --- Professional --- 63802, Esophagogastroduodenoscopy, flexible, tr ansoral; with control of bleeding, any method Diagnosis Code(s): --- Professional --- K22.8, Other specified diseases of esophagus K76.6, Portal hypertension K31.89, Other diseases of stomach and duodenum K29.81, Duodenitis with bleeding K92.2, Gastrointestinal hemorrhage, unspecified K92.0, Hematemesis CPT copyright 2017 [employer]. All rights reserved. The codes documented in this report are prelimin yuval and upon fresh work inspector review may be revised to meet current compliance requiremen ts. Sandy South MD Sandy South MD 04/28/2019 11:37:28 AM This report has been signed electronically. Provation {[id number]}.pdf ProVation FT PDF Electronically Signed by Sandy South MD on at 1132 PATIENT NAME: AMAURI CAPELLAN 7182 2019-04-28 10:33:00-00:00 [id number] [address] PATIENT NAME: AMAURI CAPELLAN ADMIT DATE: 9 ACCOUNT NO: [id number] ROOM NO: [place] [address] AGE: 48 REPORT TYPE: eECHOCARDIOGRAM REPORT SEX: F ADMITTING PHYSICIAN:Jenny Cruz MD ATTENDING PHYSICIAN:Jenny Cruz MD Name: AMAURI CAPELLAN Study Date: 04/28/2019 10: 33 AMPatient Location: [address] URN: [id number] BP: 100/55 mmHg : 66 in Gender: Female Weight: 163 lb : 1970 Gender: Female Age: 48 yrs Ethnicity: W BSA: 1.8 m2 Reason For Study: anemia/elevated trop Cardiac Measurements with Normal Values: Ao root diam: 3.2 cm 20-37 mmACS: 2.2 cm 15-26 m m LA dimension: 4.1 cm 19-40 mm LVIDd: 5.1 cm 37-56 mm LVIDs: 3.5 cm - IVSd: 0.95 cm6-11 mm RVDd: 2.5 cm 7-23 mm MMode/2D Measurements Calculations LVPWd: 0.92 cm FS: 31.0 % EDV(Teich): 124.4 ml ESV(Teich): 51.8 ml EF(Teich): 58.3 % LVOT diam: 2.0 cm Ao root area: 7.8 cm2 LVOT area: 3.1 cm2 Doppler Measurements Calculations MV E max garfield: 83.8 cm/sec MV dec slope: 337.0 cm /sec2 MV A max garfield: 60.2 cm/sec MV dec time: 0.25 sec MV E/A: 1.4 TR max garfield: 265.0 cm/sec RAP systole: 5.0 mmHg TR max P.1 mmHg RVSP(TR): 33.1 mmHg Conclusions Left ventricular systolic function is normal. Ej ection Fraction = 55-60%. PATIENT NAME: AMAURI CAPELLAN [id number] The left ventricular wall motion is normal. There is normal left ventricular wall thickness. Right ventricular systolic pressure is normal. Left Ventricle The left ventricle is normal in size. There is n ormal left ventricular wall thickness. Left ventricular systolic function is normal. Ejection Fraction = 55-60%. The left ventricular wall motion is norm al. Right Ventricle The right ventricle is normal in size and functi on. Atria The left atrium is mildly dilated. Right atrial size is normal. Mitral Valve The mitral valve is normal in structure and func tion. There is trace mitral regurgitation. Tricuspid Valve The tricuspid valve is normal in structure and f unction. There is trace tricuspid regurgitation. Right ventricular systo lic pressure is normal. Aortic Valve The aortic valve is normal in structure and func tion. Pulmonic Valve The pulmonic valve is not well visualized. Great Vessels The aortic root is normal size. Pericardium/Pleural There is no pericardial effusion. Electronically signed by: MAGDALENE SMART MD 10:51 AM Ordering Physician: Juani Florez Referring Physician: Oscar Mcleod Performed By: Ayo Miller at 1052 PATIENT NAME: AMAURI CAPELLAN [id number] 2019-04-28 10:23:00-00:[address] [facility] ([facility]) Cardiology Consultation REPORT#:[id number] REPORT STATUS: Signed DATE:04/28/19 TIME: 1023 PATIENT: AMAURI CAPELLAN UNIT #: [id number] [facility] AGE: 48 SEX: F ATTEND: Jenny Cruz ADM AUTHOR: Lee Padron MD * ALL edits or amendments must be made on the el [employer]/computer document * History of Present Illness HPI Requesting Clinician: Anesthesia Reason for consult: preop eval Chief complaint: GI bleed HPI: 48-year-old female presents with complaints of vomiting blood also passing dark stools over the last several days. She has a his tory of tobacco and alcohol abuse. She states she quit drinking drinking robin roximately 3 months ago. She denies chest pain, palpitations, syncope. She re ports associated generalized weakness and dizziness. No history of CAD, CHF, diabetes, stroke, CKD. Patient has a history of hernia, with me sh repair. She has a history of anemia and has received blood transfusions in the past. History - Adult longitudinal Past medical history: Reports: Anemia, Hypertension, Cirrhosis. Alcohol use: Alcohol use (quit 3 months ago) Smoking status for patients 13 years old or olde r: Former Smoker Medications: Home Medications: Medication Dose/Rte/Freq Days Qty Entered Last Max Daily Dose Reviewed Unable to Obtain Home Medication History Current Hospital Medications: Anti-Infective Agents Sig/Ever Start time Last Medication Dose Route Stop Time Status Admin Ceftriaxone Sodium 1 GM BEDTIME 04/27 2359 AC 0 04/28 (ROCEPHIN) IV 05/02 0400 0132 Sterile Water 10 ML (STERILE WATER) Antineoplastic Agents Sig/Ever Start time Last Medication Dose Route Stop Time Status Admin Octreotide Acetate 500 MCG ASDIR 04/27 234 CK D 04/28 (SandoSTATIN) IV 05/27 2346 0133 Sodium Chloride 249 ML (NORMAL SALINE 250 ML) Octreotide Acetate 500 MCG .[id number] ONE 04/27 2 000 DC (SandoSTATIN) IV 04/28 0829 Sodium Chloride 249 ML (NORMAL SALINE 250 ML) Autonomic Drugs Sig/Ever Start time Last Medication Dose Route Stop Time Status Admin Albuterol Sulfate 2.5 MG RTQ6H PRN PRN 04/27 23 45 AC (PROVENTIL) INH 05/27 2346 Norepinephrine/ 250 ML ASDIR 04/27 2345 AC Dextrose IV 05/27 2346 (LEVOPHED-D5W 8 MG/ 250 ML) Blood Derivatives Sig/Ever Start time Last Medication Dose Route Stop Time Status Admin Albumin Human 200 ML Q1H 04/28 100 DC 04/28 (ALBUMINAR-25) IV 04/28 0259 0238 Central Nervous System Agents Sig/Ever Start time Last Medication Dose Route Stop Time Status Admin Magnesium Sulfate 50 ML ASDIR PRN 04/28 15 AC (MAGNESIUM SULFATE IV 05/28 16 2GM/50ML BAG) Magnesium Sulfate/ 100 ML ASDIR PRN 04/28 15 AC Dextrose IV 05/28 16 (MAGNESIUM SULFATE 1GM/D5W 100ML) Electrolytic, Caloric, And Stephen Sig/Ever Start time Last Medication Dose Route Stop Time Status Admin Lactulose 300 ML ONCE ONE 04/28 100 DC 04/28 (CHRONULAC 20 GM/30 RECTAL 04/28 101 0355 ML) Sodium Chloride 700 ML (SODIUM CHLORIDE IRRIGATION) Calcium Gluconate 1,000 MG ASDIR PRN 04/28 15 AC (CALCIUM GLUCONATE IV 05/28 16 10%) Sodium Chloride 100 ML (SODIUM CHLORIDE 0.9% 100 ML MINIBAG) Lactulose 1,000 ML ONCE ONE 04/28 15 CAN (LACTULOSE) RECTAL 04/28 16 Potassium Chloride 20 MEQ ASDIR PRN 04/28 15 AC (K-DUR) PO 05/28 16 Potassium Chloride 40 MEQ ASDIR PRN 04/28 15 AC (K-DUR) PO 05/28 16 Potassium Chloride 40 MEQ ASDIR PRN 04/28 15 AC (K-DUR) PO 05/28 16 Potassium Chloride 200 ML ASDIR PRN 04/28 15 AC (KCL 10 MEQ/100ML) IV 05/28 16 Potassium Chloride 400 ML ASDIR PRN 04/28 15 AC (KCL 10 MEQ/100ML) IV 05/28 16 Potassium Chloride 400 ML ASDIR PRN 04/28 15 AC (KCL 10 MEQ/100ML) IV 05/28 16 Potassium Chloride 100 ML ASDIR PRN 04/28 15 AC (KCL 20 MEQ/100 ML) IV 05/28 16 Potassium Chloride 200 ML ASDIR PRN 04/28 15 AC (KCL 20 MEQ/100 ML) IV 05/28 16 Potassium Chloride 200 ML ASDIR PRN 04/28 15 AC (KCL 20 MEQ/100 ML) IV 05/28 16 Potassium Phos/ 1 PKT ASDIR PRN 04/28 15 CKD Sodium Phos PO 05/28 16 (PHOS-NAK PACKET) Potassium Phosphate 15 MM ASDIR PRN 04/28 15 CKD (POTASSIUM PHOS 15MM/ IV 05/28 16 5ML) Sodium Chloride 250 ML (NORMAL SALINE 250 ML) Potassium Phosphate 30 MM ASDIR PRN 04/28 15 CKD (POTASSIUM PHOS 15MM/ IV 05/28 16 5ML) Sodium Chloride 500 ML (SODIUM CHLORIDE 0.9% 500 ML) Sodium Chloride 250 ML ASDIR 04/28 15 AC (NORMAL SALINE 250 IV 04/29 0002 ML) Dextrose/Water 25 ML ASDIR PRN 04/27 2345 AC (DEXTROSE 50%-WATER) IV 05/27 2346 Glucose Polymer 15 GM ASDIR PRN 04/27 2345 AC (GLUTOSE) PO 05/27 2346 Calcium Gluconate 1,000 MG X1ED STA 04/27 2106 DC 04/27 (CALCIUM GLUCONATE IV 04/27 10%) Sodium Chloride 100 ML (SODIUM CHLORIDE 0.9% 100 ML MINIBAG) Gastrointestinal Drugs Sig/Ever Start time Last Medication Dose Route Stop Time Status Admin Ondansetron HCl 4 MG Q6H PRN PRN 04/28 15 AC (ZOFRAN) IV 05/28 16 Pantoprazole Sodium 80 MG ASDIR 04/27 2345 CKD 04/28 (Protonix IV) IV 05/27 2346 0134 Sodium Chloride 100 ML (NORMAL SALINE 100 ML) Pantoprazole Sodium 80 MG X1ED STA 04/27 1946 D C (Protonix IV) IV 04/28 0545 Sodium Chloride 100 ML (NORMAL SALINE 100 ML) Hormones And Synthetic Substit Sig/Ever Start time Last Medication Dose Route Stop Time Status Admin Hydrocortisone 100 MG Q12HR 04/28 010 AC 04/06 4 Sodium Succinate IV 05/28 010 0850 (Solu-CORTEF) Glucagon 1 MG ASDIR PRN 04/27 2345 AC (GLUCAGON) IM 05/27 2346 Skin And Mucous Membrane Agent Sig/Ever Start time Last Medication Dose Route Stop Time Status Admin Mupirocin 1 APPLIC BID 04/28 0200 AC 04/28 (BACTROBAN NASAL - NASAL 05/02 0901 0850 ADULT ICU) Allergies: Coded Allergies: No Known Allergies (04/27/19) Review of Systems Additional notes: 12 point ROS performed with pertinent +/- per HP I Objective Physical Exam VS/I O: Vital Signs: Date Time Temp Pulse Resp B/P B/P Pulse O2 O2 Flow FiO2 Mean Ox Delivery Rate 04/28 0756 93 Room air 04/28 0715 76 17 100/55 72 95 04/28 0700 86 14 102/54 74 94 04/28 0645 84 13 98/56 72 92 04/28 0630 87 15 93/52 69 91 04/28 0615 90 11 87/49 62 91 04/28 0600 91 11 89/50 64 92 04/28 0545 93 13 92/51 68 93 04/28 0530 91 15 96/52 71 92 04/28 0515 92 15 101/53 70 93 04/28 0507 93 Room air 04/28 0500 88 15 97/55 73 94 04/28 0445 83 11 89/51 65 96 04/28 0430 92 21 94/55 69 92 04/28 0415 96 29 88/53 65 93 / 0400 37.6 98 31 93/50 67 96 / 0345 37.5 98 23 93/55 68 / 0330 99 20 103/63 78 96 / 0315 100 22 100/56 74 97 / 0300 99 19 97/53 72 94 / 0245 106 30 109/68 83 96 / 0230 102 18 106/65 80 91 / 0215 109 23 85/46 61 95 04/28 0200 115 21 96/51 70 95 04/28 0145 112 22 98/54 74 95 / 0130 108 19 107/68 83 94 / 0115 109 20 113/69 86 96 /24 0100 120 22 97/55 71 96 / 0045 109 17 112/63 79 98 / 0030 37.1 117 24 100/59 76 98 / 0015 113 17 94/53 69 98 09/24 0000 37.2 114 19 112/68 83 96 / 2345 115 19 117/75 92 97 / 2330 115 19 117/73 88 98 / 2315 37.2 113 26 143/76 100 98 2200 37.1 114 27 124/67 86 100 Room air 04/270 117 25 112/65 80 100 Room air 04/27 2135 117 24 98/54 68 100 Room air 04/27 2125 36.6 119 24 97/53 67 100 Room air 04/27 2116 118 19 84/48 60 100 Room air 04/27 2110 36.8 119 23 77/40 52 100 Nasal 2.000 000 cannula 04/27 2105 116 24 93/48 63 100 Nasal 2.258220 cannula 04/27 2000 117 24 99/59 72 99 Nasal 2.070106 cannula 04/27 1930 36.9 132 20 79/46 57 100 Room air 24 hour I O ending at 0700: 04/28 0700 04/27 1900 Intake Total 2151.70 Output Total Balance 2151.70 Intake, IV 1801.70 Intake, 350 Packed Cells Number 1 Bowel Movements Number Voids 4 Patient 74.091 kg Weight Weight Stated/Reported Measurement Method Patient Weight Weight (lb): Weight (oz): Weight (kg): 74.091 General appearance: awake, oriented, no acute di stress, pleasant Head/Eyes: atraumatic, EOMI Neck: no JVD Cardiovascular: CV assessment: regular rate and rhythm, normal heart sounds Respiratory: decreased breath sounds, no distres s Abdomen: distended Genitourinary: no monroy Lower extremity: LE assessment: no edema Musculoskeletal: FAULKNRE Neuro/CLINICAL SALES CONSULTANT: alert, oriented X 3 Skin: dry (pale) Psychiatry: normal affect Results Findings/Data: Laboratory Tests 04/27 2034 Blood Gas Puncture Site (DESCRIPTION Site) Venous VBG pH (7.32 - 7.42 pH units) 7.16 L VBG pCO2 (41 - 51 mmHg) 23 L VBG pO2 (25 - 40 mmHg) 23 L VBG HCO3 (24 - 28 mmol/L) 8.3 L O2 Delivery Method (DESCRIPTION COMMENT) DE Laboratory Tests 04/28 04/28 04/28 0545 0330 0107 Chemistry Sodium (133 - 144 mmol/L) 139.0 Potassium (3.5 - 5.1 mmol/L) 3.4 L Chloride (95 - 105 mmol/L) 110 H Carbon Dioxide (21 - 32 mmol/L) 17 L Anion Gap (4.0 - 15.0 GAP calc) 12.0 BUN (7 - 18 MG/DL) 58 H Creatinine (0.55 - 1.30 MG/DL) 1.35 H Glucose (70 - 110 MG/DL) 133 H Lactic Acid (0.4 - 2.0 mmol/L) 1.6 Calcium (8.5 - 10.1 MG/DL) 7.5 L Troponin I (0.000 - 0.045 NG/ML) 0.304 *H Procalcitonin (0.00 - 0.10 NG/ML) 1.21 H TSH (0.340 - 4.820 mc IU/ML) 1.440 Specimen Appearance (1 NORMAL Index/DL) 2 TRACE 2-5 MG Specimen Hemolysis (1 NORMAL Index/DL) 1 NORMAL <10 MG 04/287 2234 2114 1944 Chemistry Lactic Acid (0.4 - 2.0 mmol/L) 2.9 *H 6.2 *H Ionized Calcium Javed (1.13 - 1.32 mmol/L) 0.83 L Troponin I (0.000 - 0.045 NG/ML) 0.064 *H 04/27 1945 Chemistry Sodium (133 - 144 mmol/L) 136.0 Potassium (3.5 - 5.1 mmol/L) 4.5 Chloride (95 - 105 mmol/L) 108 H Carbon Dioxide (21 - 32 mmol/L) 8 *L Anion Gap (4.0 - 15.0 GAP calc) 20.0 H BUN (7 - 18 MG/DL) 57 H Creatinine (0.55 - 1.30 MG/DL) 1.70 H Glomerular Filtr Rate (>60 estGFR) 32 L Glucose (70 - 110 MG/DL) 94 Calcium (8.5 - 10.1 MG/DL) 7.0 L Total Bilirubin (0.00 - 1.00 MG/DL) 0.61 Direct Bilirubin (0.00 - 0.30 MG/DL) 0.37 H Indirect Bilirubin (0.2 - 1.3 MG/DL) 0.24 AST (15 - 37 Unit/L) 46 H ALT (12 - 78 Unit/L) 24 Total Alk Phosphatase (45 - 117 Unit/L) 138 H Total Protein (6.4 - 8.2 G/DL) 5.2 L Albumin (3.4 - 5.0 G/DL) 1.5 L Albumin/Globulin Ratio (1.2 - 2.2 RATIO) 0.4 L Specimen Appearance (1 NORMAL Index/DL) 1 BRIAN L <2 MG Specimen Hemolysis (1 NORMAL Index/DL) 1 NORMAL <10 MG Laboratory Tests 04/27 Coagulation PT (9.4 - 12.5 SECONDS) 16.6 H 21.3 H INR (0.88 - 1.13 INR Unit) 1.46 H 1.87 H PTT (Miguel) (24 - 37.7 SECONDS) 21.3 L 30.8 Fibrinogen (192 - 485 mg/dL) 232 Laboratory Tests 04/28 0545 Hematology WBC (4.1 - 12.1 K/mm3) 11.5 RBC (3.8 - 5.5 M/mm3) 3.35 L Hgb (10.6 - 15.8 G/DL) 9.7 L Hct (31.8 - 47.4 %) 28.8 L MCV (80.1 - 101.1 fL) 86.0 MCH (25.3 - 35.3 pg) 29.0 MCHC (32.7 - 35.1 G/DL) 33.7 RDW (12.2 - 16.4 %) 15.3 Plt Count (155 - 337 K/mm3) 110 L MPV (6.8 - 11.2 fL) 11.8 H Gran % (37.8 - 82.6 %) 79.1 Lymph % (Auto) (14.1 - 45.4 %) 3.1 L [place] % (Auto) (2.5 - 11.7 %) 9.3 Eos % (Auto) (0.0 - 6.2 %) 0.1 Baso % (Auto) (0.0 - 2.1 %) 0.5 Gran # (2.0 - 13.7 k/mm3) 9.07 Lymph # (Auto) (0.6 - 3.8 K/mm3) 0.35 L [place] # (Auto) (0.11 - 0.59 K/mm3) 1.07 H Eos # (Auto) (0.0 - 0.4 K/mm3) 0.01 Baso # (Auto) (0.0 - 0.1 K/mm3) 0.06 Add Manual Diff (CRITERIA DIFF/SCN) MAN DIFF IN DICATED Total Counted (100 #CELLS) 100 Immature Gran % (0.0 - 2.0 %) 7.9 H Seg Neutrophils % (40 - 75 %) 86 H Lymphocytes % (Manual) (18.7 - 40.6 %) 2 L Atypical Lymphs % (0 - 0 %) 1 H Monocytes % (Manual) (3.8 - 11.4 %) 5 Nucleated RBC % (0.0 - 1.0 /100WBC%) 1.3 H Metamyelocytes (0 - 2 %) 3 H Myelocytes (0 - 1 %) 3 H Nucleated RBCs # (0.0 - 0.05 K/mm3) 0.15 H Platelet Estimate (ADEQUATE ON SCAN) SL DECR Polychromasia (NONE ON SCAN) SLIGHT Anisocytosis (NONE ON SCAN) SLIGHT Ovalocytes (NONE ON SCAN) FEW 04/27 2115 Hematology WBC (4.1 - 12.1 K/mm3) 11.6 RBC (3.8 - 5.5 M/mm3) 1.88 *L Hgb (10.6 - 15.8 G/DL) 5.6 *L Hct (31.8 - 47.4 %) 17.9 *L MCV (80.1 - 101.1 fL) 95.2 MCH (25.3 - 35.3 pg) 29.8 MCHC (32.7 - 35.1 G/DL) 31.3 L RDW (12.2 - 16.4 %) 15.1 Plt Count (155 - 337 K/mm3) 120 L MPV (6.8 - 11.2 fL) 12.1 H Gran % (37.8 - 82.6 %) 76.1 Lymph % (Auto) (14.1 - 45.4 %) 2.7 L [place] % (Auto) (2.5 - 11.7 %) 10.5 Eos % (Auto) (0.0 - 6.2 %) 0.2 Baso % (Auto) (0.0 - 2.1 %) 0.2 Gran # (2.0 - 13.7 k/mm3) 8.82 Lymph # (Auto) (0.6 - 3.8 K/mm3) 0.31 L [place] # (Auto) (0.11 - 0.59 K/mm3) 1.21 H Eos # (Auto) (0.0 - 0.4 K/mm3) 0.02 Baso # (Auto) (0.0 - 0.1 K/mm3) 0.02 Add Manual Diff (CRITERIA DIFF/SCN) MAN DIFF IN DICATED Total Counted (100 #CELLS) 100 Immature Gran % (0.0 - 2.0 %) 10.3 H Seg Neutrophils % (40 - 75 %) 79 H Lymphocytes % (Manual) (18.7 - 40.6 %) 2 L Atypical Lymphs % (0 - 0 %) 1 H Monocytes % (Manual) (3.8 - 11.4 %) 12 H Eosinophils % (Manual) (0.0 - 4.1 %) 1 Nucleated RBC % (0.0 - 1.0 /100WBC%) 1.7 H Metamyelocytes (0 - 2 %) 2 Myelocytes (0 - 1 %) 3 H Nucleated RBCs # (0.0 - 0.05 K/mm3) 0.20 H Platelet Estimate (ADEQUATE ON SCAN) SL DECR Polychromasia (NONE ON SCAN) SLIGHT Anisocytosis (NONE ON SCAN) MOD H Microcytosis (NONE ON SCAN) SLIGHT Macrocytosis (NONE ON SCAN) SLIGHT Ovalocytes (NONE ON SCAN) FEW [place] Cells (NONE ON SCAN) FEW Acanthocytes (Spur) (NONE ON SCAN) FEW 04/27 1945 Hematology WBC (4.1 - 12.1 K/mm3) 14.6 H RBC (3.8 - 5.5 M/mm3) 1.07 *L Hgb (10.6 - 15.8 G/DL) 3.2 *L Hct (31.8 - 47.4 %) 10.8 *L MCV (80.1 - 101.1 fL) 100.9 MCH (25.3 - 35.3 pg) 29.9 MCHC (32.7 - 35.1 G/DL) 29.6 L RDW (12.2 - 16.4 %) 16.5 H Plt Count (155 - 337 K/mm3) 217 MPV (6.8 - 11.2 fL) 12.5 H Gran % (37.8 - 82.6 %) 71.3 Lymph % (Auto) (14.1 - 45.4 %) 4.2 L [place] % (Auto) (2.5 - 11.7 %) 12.6 H Eos % (Auto) (0.0 - 6.2 %) 0.3 Baso % (Auto) (0.0 - 2.1 %) 0.0 Gran # (2.0 - 13.7 k/mm3) 10.44 Lymph # (Auto) (0.6 - 3.8 K/mm3) 0.61 [place] # (Auto) (0.11 - 0.59 K/mm3) 1.85 H Eos # (Auto) (0.0 - 0.4 K/mm3) 0.04 Baso # (Auto) (0.0 - 0.1 K/mm3) 0.00 Add Manual Diff (CRITERIA DIFF/SCN) MAN DIFF IN DICATED Total Counted (100 #CELLS) 100 Immature Gran % (0.0 - 2.0 %) 11.6 H Seg Neutrophils % (40 - 75 %) 82 H Lymphocytes % (Manual) (18.7 - 40.6 %) 9 L Atypical Lymphs % (0 - 0 %) 2 H Monocytes % (Manual) (3.8 - 11.4 %) 2 L Nucleated RBC % (0.0 - 1.0 /100WBC%) 1.6 H Myelocytes (0 - 1 %) 4 H Promyelocytes (0 - 0 %) 1 H Nucleated RBCs # (0.0 - 0.05 K/mm3) 0.24 H Platelet Estimate (ADEQUATE ON SCAN) ADEQ Polychromasia (NONE ON SCAN) SLIGHT Anisocytosis (NONE ON SCAN) MOD H Ethan Cells (NONE ON SCAN) FEW Laboratory Tests 04/28 0545 Miscellaneous Maternal Serum HCG (0 - 3 mi-IU/ML) <1 Laboratory Tests 04/28 04/27 0107 1945 Chemistry Troponin I (0.000 - 0.045 NG/ML) 0.304 *H 0.064 *H Radiology Data: Recent Impressions: RADIOLOGY - XR ABDOMEN 1 V 04/27 2010 Report Impression - Status: SIGNED Entered: 04/27/20192046 Impression: Appearance of the abdomen is nearly nondiagnosti c secondary to patient's habitus. No definite prominent small b owel dilation is visualized. Impression By: [email or web address] Mildred Patton RADIOLOGY - XR CHEST 1 V 04/27 2033 Report Impression - Status: SIGNED Entered: 04/27/20192108 IMPRESSION: No definite consolidation. Question vascular con gestion, evaluation limited by low lung volumes Nonspecific prominence of the upper mediastinum Impression By: [email or web address] Mildred Patton CAT SCAN - CT ABD PELVIS W/O CONT 04/27 225 Report Impression - Status: SIGNED Entered: 04/27/2019 2340 IMPRESSION: Extensive ascites and a nodular cirrhotic appear ing liver. Cholelithiasis. No bowel obstruction or free air. Extensive wall thickening of the stomach. Endosc opic correlation recommended. Fluid containing umbilical hernia. Impression By: [email or web address] - Ailyn Álvarez Diagnosis, Assessment Plan Free Text DxA P Notes Free Text DxA P Notes: 1. Preprocedure evaluation, cardiac clearance Patient with history of hypertension and cirrhos is She denies history of diabetes, hyperlipidemia, stroke, CHF, lung disease or kidney disease Minimal troponin elevation likely demand ischemi a in the setting of severe anemia Patient of moderate risk for perioperative cardi ovascular events. 2. GI bleed/Severe anemia Work-up pending 3. HTN BPs on the low side. Continue to monitor 4. Ascites 5. Elevated lactic acid 6. Elevated troponin Likely demand ischemia in the setting of severe anemia no hx CAD, no CP Obtain echo to evaluate LVEF, assess for RWMA an d valve disease Further ischemic eval when cleared from GI stand point at 1033 RPT #:[id number] END OF REPORT 2019-04-27 23:51:00-00:[address] [facility] ([facility]) Admit Note - Brief REPORT#:[id number] REPORT STATUS: Signed DATE:04/27/19 TIME: 2351 PATIENT: AMAURI CAPELLAN UNIT #: [id number] ROOM/BED: [place] [id number]-D : 69 AGE: 48 SEX: F ATTEND: Jenny Cruz ADM AUTHOR: Jenny Cruz MD * ALL edits or amendments must be made on the el ectronic/computer document * History - Adult longitudinal Allergies: Coded Allergies: No Known Allergies (04/27/19) Impression/Plan of Care Free Text A P: [id number] Electronically Signed by Jenny Cruz MD on 9 at 2351 [facility] #:[id number] END OF REPORT 2019-04-27 23:51:00-00:00 [id number] [place] [address] PATIENT NAME: AMAURI CAPELLAN ADMIT DATE: 9 ACCOUNT NO: [id number] ROOM NO: [id number] AGE: 48 REPORT TYPE: HISTORY AND PHYSICAL SEX: F ADMITTING PHYSICIAN:Jenny Cruz MD ATTENDING PHYSICIAN:Jenny Cruz MD ADMISSION DATE: 04/27/2019 PRIMARY CARE PHYSICIAN: Not known. PRESENTATION: Abdominal distention and pain, alt ered mental status. HISTORY OF PRESENTING COMPLAINT: This is a 48-ye ar-old female who was transferred from [place] because of the abdominal pain, nausea and vomiting. She had history of hematemesis and black stools for 2 days. The patient has history of cirrhosis. She wa s found to have severe anemia with hemoglobin of 3. She was started on Protonix and Sandostatin drips along with pressor agents and she was later transferred to [facility] ER where she was started on PRBC transfusion. GI was also consulted. They advised conservative management at this time and the patient was later transferred to ICU for fur ther management. History is limited because of the patient's altered mental status. REVIEW OF SYSTEMS: Nausea, v omiting, hematemesis, melena, abdominal distention, ascites positive. Altered mental status positive . No history of dysuria, hematuria, urgency or frequency. No history of c ough, sputum or shortness of breath. No history of seizure activity. ALLERGIES: NO KNOWN DRUG ALLERGIES. MEDICATIONS: Please see the MAR. PAST MEDICAL HISTORY: Alcoholic liver disease, a nemia, ascites, cirrhosis, hypertension, neutropenia. PAST SURGICAL HISTORY: Hernia repair. SOCIAL HISTORY: No history of smoking, drugs or alcohol. PHYSICAL EXAMINATION: GENERAL: The patient lying in bed, in moderate d istress. VITAL SIGNS: Temperature 36.9. Pulse 132, 113. R espiratory rate 26, blood pressure 143/76, pulse ox 98%. Initial blood pre ssure 79/46. HEENT: Atraumatic, flushed face. NECK: Supple. CHEST: Decreased air entry. Occasional wheeze. O ccasional rales. ABDOMEN: Extensively distended with umbilical he rnia and prominent veins, ascites positive. CARDIOVASCULAR: S1, S2 audible. Tachycardia. No murmur, rub or gallop. PATIENT NAME: AMAURI CAPELLAN 7182 CENTRAL NERVOUS SYSTEM: Altered mental status. EXTREMITIES: Edema positive. LABORATORY DATA: At the peripheral ER in [facility]; WBC 10.1, hemoglobin 2.7 and platelets 197. Alcohol less than 5. Lactic a darcy 7.3. Sodium 131, potassium 4.2, chloride 105, carbon dioxide 14, anion gap 16.2, glucose 119, calcium 7.2, BUN 66, creatinine 1.6, albumin 1.5 . Total bilirubin is 0.8, alkaline phosphatase 129. Total protein 5.1. ALT 2.1, AST 53. Globulin 3.6, amylase 77, lipase 62. Gastric occult blood posi tive. Prothrombin time 20. INR 1.8 and PTT 30. Labs here at [facility]; lactic ac id 6.2. WBC 11.6, hemoglobin 5.6 and platelets 120. INR 1.46. Fibrinogen 232. Ionized calcium 0.83. VBG; pH 7.16, pCO2 of 23, pO2 23, bicarbonate 8.3. WBC 14.6, hemoglobin 3. 2 initially, platelets 217. INR 1.87. Sodium 136, potassium 4.5, chl oride 108, carbon dioxide 8, anion gap 20, BUN 57, creatinine 1.7, GFR 32, calcium 7. T otal bilirubin 0.61, AST 46, ALT 24. Troponin 0.64. Total protein 5.2, albumi n 1.5. CT abdomen and pelvis shows extensive ascites and nodular porsha re cirrhotic-appearing liver. No bowel obstruction. No free air. Extensive wall thicken ing of the stomach. Endoscopic correlation recommended. Fluid contai aline umbilical hernia. X-ray chest, no definite consolidation, question vascu lar congestion. Evaluation limited by low lung volume, nonspecific prominence of upper mediastinum. X-ray abdomen, appearance of abdomen is nearly nondiag nostic secondary to patient habitus. ASSESSMENT AND PLAN: 1. Septic shock on presentation with lac tic acid more than 6. ____ less than 9 and liver failure. We will continue sepsis prot ocol. Continue antibiotics. Follow up cultures. 2. Upper gastrointestinal bleed secondar y to varices. Continue Sandostatin and Protonix. Follow up with GI. 3. Severe acute blood loss anemia. Continue PRBC transfusion. Keep hemoglobin up to 7. 4. Severe ascites. Continue diuretics including spironolactone. Consider IR for paracentesis when the patient is stable. 5. Increase in troponin, possibly demand ischemi a. We cannot give aspirin at this time. We will consult Cardiology. Trend car diac enzymes. 6. The patient has hepatic encephalopathy. We wi ll continue lactulose to make sure at least 3 bowel movements per day. 7. We will do deep venous thrombosis and gastroi ntestinal prophylaxes. Condition discussed with the staff and the patie nt. Questions are answered. Advance directive discussed. Medications reviewed and reconciled. No family is around for discussion. The patient's condition i s critical. Dictated By: Jenny Cruz MD WT: HP:RAMILA/RUBÉN/MICHELLE PATIENT NAME: AMAURI CAPELLAN 7182 Conf#: [id number]/DID#: [id number] Authenticated by Jenny Cruz MD On 04/29/2019 07:0 0:34 AM Electronically Signed by Jenny Cruz MD on at 0700 PATIENT NAME: AMAURI CAPELLAN 7182 2019-04-27 19:38:00-00:[address] [facility] ([facility]) EMERGENCY PROVIDER REPORT REPORT#:[id number] REPORT STATUS: Signed DATE:04/27/19 TIME: 1937 PATIENT: AMAURI CAPELLAN UNIT #: [id number] ROOM/BED: AGE: 48 SEX: F PCP PHYS: No Primary or Family Ph ysician SERVICE AUTHOR: Oscar Mcleod MD * ALL edits or amendments must be made on the [employer]/computer document * HPI-Abd Pain F 40 and Over General Confirmed Patient Yes Initial Greet Date/Time 04/27/191934 Assumed Care at Time 1937 Date 04/27/19 Presentation Chief Complaint Abdominal pain Hx Obtained From Patient, Uat Tester Sudden in Onset? No Onset Occurred Days ago Symptom Duration Since onset Caused by No trauma by history Associated with Reports: Melena, Nausea, Vomiting. Exacerbated by Nothing Relieved by Nothing Free Text HPI Notes Free Text HPI Notes 48 y/o female presents to [facility] ED as a transfer from [facility] with c/o abd pain and n/v. Pt states she has v omited blood and has had black stool for 2 days. Pt has a PMhx of cirrhosis, HTN and anemia. Pt received less than 1 unit of PRVCs on arrival . Portions of this section were scribed by Liat Bennett on 04/27/19 at 2036 Risk-Abd Pain F 40 and Over )( Abdominal Aortic Aneurysm Risk factors review ed, Hypertension Portions of this section were scribed by Liat Bennett on 04/27/19 at 2026 Review of Systems ROS Statements All systems rev neg except as marked. Focused Review of Systems Constitutional Denies: Chills, Fatigue, Fever. Respiratory Denies: Shortness of breath, Wheezing. Cardiovascular Denies: Chest pain, Syncope. GI Reports: Abdominal pain, Melena, Nausea, Vomitin g. Female Denies: Dysuria, Hematuria. Musculoskeletal Denies: Back pain, Neck pain. Additional Review of Systems Eyes Denies: Blurred bilat, Discharge bilat. Ears/Nose/Throat Denies: Sinus problem, Sore throat. Skin Denies: Abrasion, Laceration. Neurologic Denies: Confusion, Dizziness. Psychiatric Denies: Agitation, Anxiety. Portions of this section were scribed by Liat Bennett on 04/27/19 at 2026 Past Medical History - Adult Stated Complaint GI BLEED Allergies Coded Allergies: No Known Allergies (04/27/19) Home Medications Reported Medications Unable to Obtain Home Medication History Pt reports no significant: Past surgical history , Family history Past Medical History: Reports: Anemia, Hypertension, Cirrhosis. Smoking status for patients 13 years old or olde r: Unknown,if ever smoked Portions of this section were scribed by Liat Bennett on 04/27/19 at 2026 Physical Exam Vital Signs Vital Signs First Documented: Result Date Time Pulse Ox 100 04/27 1930 B/P 79/46 04/27 1930 B/P Mean 57 04/27 1930 O2 Delivery Room air 04/27 1930 Temp 98.4 04/27 1930 Pulse 132 04/27 1930 Resp 20 04/27 1930 Last Documented: Result Date Time Pulse Ox 100 04/27 1930 B/P 79/46 04/27 1930 B/P Mean 57 04/27 1930 O2 Delivery Room air 04/27 1930 Temp 98.4 04/27 1930 Pulse 132 04/27 1930 Resp 20 04/27 1930 Review of Vital Signs Reviewed Focused PE General/Const General/Const Awake, Alert MS Head Head Atraumatic, Normocephalic Eyes Eyes Atraumatic, PERRL, EOMI Ears/Nose/Throat Ears/Nose/Throat Atraumatic, Airway patent, Muc ous membranes moist, Pharynx NL Resp/Chest Respiratory/Chest Atraumatic, Breath sounds NL, Breath sounds = bilat Cardiovascular Cardiovascular Heart sounds NL Heart Rate/Rhythm Tachycardia. Abdomen/GI Text/Dict Notes abd large and distended MS Back Back Atraumatic, Inspection NL, Full range of m otion Skin Skin Atraumatic, Color NL, Warm, Dry, Intact Genitourinary General Exam deferred Rectum Rectal for Blood Melena present. Neurologic Neurologic Oriented X3, Speech NL Additional PE MS Neck Neck Atraumatic, Supple, Full range of motion MS Upper Extrem Upper Extremity/MS Atraumatic, Inspection NL MS Wrist/Hand Wrist/Hand Atraumatic, Inspection NL MS Lower Extrem Lower Ext/Pelvis/MS Atraumatic, Inspection NL MS Ankle/Foot Ankle/Foot Atraumatic, Inspection NL Psychiatric Psychiatric Affect NL, Mood NL Portions of this section were scribed by Liat Bennett on 04/27/19 at 2036 Interpretation Diagnostics Lab Results Interpretation Results Laboratory Tests 04/27/192114: [Embedded Image Not Available] 04/27/191944: [Embedded Image Not Available] Laboratory Tests: 04/27 Blood Gas Puncture Site (DESCRIPTION Site) Venous VBG pH (7.32 - 7.42 pH units) 7.16 L VBG pCO2 (41 - 51 mmHg) 23 L VBG pO2 (25 - 40 mmHg) 23 L VBG HCO3 (24 - 28 mmol/L) 8.3 L O2 Delivery Method (DESCRIPTION COMMENT) NC Chemistry Ionized Calcium Javed (1.13 - 1.32 mmol/L) 0.83 L Hematology WBC (4.1 - 12.1 K/mm3) 11.6 RBC (3.8 - 5.5 M/mm3) 1.88 *L Hgb (10.6 - 15.8 G/DL) 5.6 *L Hct (31.8 - 47.4 %) 17.9 *L MCV (80.1 - 101.1 fL) 95.2 MCH (25.3 - 35.3 pg) 29.8 MCHC (32.7 - 35.1 G/DL) 31.3 L RDW (12.2 - 16.4 %) 15.1 Plt Count (155 - 337 K/mm3) 120 L MPV (6.8 - 11.2 fL) 12.1 H Gran % (37.8 - 82.6 %) 76.1 Lymph % (Auto) (14.1 - 45.4 %) 2.7 L [place] % (Auto) (2.5 - 11.7 %) 10.5 Eos % (Auto) (0.0 - 6.2 %) 0.2 Baso % (Auto) (0.0 - 2.1 %) 0.2 Gran # (2.0 - 13.7 k/mm3) 8.82 Lymph # (Auto) (0.6 - 3.8 K/mm3) 0.31 L [place] # (Auto) (0.11 - 0.59 K/mm3) 1.21 H Eos # (Auto) (0.0 - 0.4 K/mm3) 0.02 Baso # (Auto) (0.0 - 0.1 K/mm3) 0.02 Add Manual Diff (CRITERIA DIFF/SCN) MAN DIFF IN DICATED Immature Gran % (0.0 - 2.0 %) 10.3 H Nucleated RBC % (0.0 - 1.0 /100WBC%) 1.7 H Nucleated RBCs # (0.0 - 0.05 K/mm3) 0.20 H 04/27 Chemistry Sodium (133 - 144 mmol/L) 136.0 Potassium (3.5 - 5.1 mmol/L) 4.5 Chloride (95 - 105 mmol/L) 108 H Carbon Dioxide (21 - 32 mmol/L) 8 *L Anion Gap (4.0 - 15.0 GAP calc) 20.0 H BUN (7 - 18 MG/DL) 57 H Creatinine (0.55 - 1.30 MG/DL) 1.70 H Glomerular Filtr Rate (>60 estGFR) 32 L Glucose (70 - 110 MG/DL) 94 Calcium (8.5 - 10.1 MG/DL) 7.0 L Total Bilirubin (0.00 - 1.00 MG/DL) 0.61 Direct Bilirubin (0.00 - 0.30 MG/DL) 0.37 H Indirect Bilirubin (0.2 - 1.3 MG/DL) 0.24 AST (15 - 37 Unit/L) 46 H ALT (12 - 78 Unit/L) 24 Total Alk Phosphatase (45 - 117 Unit/L) 138 H Troponin I (0.000 - 0.045 NG/ML) 0.064 *H Total Protein (6.4 - 8.2 G/DL) 5.2 L Albumin (3.4 - 5.0 G/DL) 1.5 L Albumin/Globulin Ratio (1.2 - 2.2 RATIO) 0.4 L Specimen Appearance (1 NORMAL Index/DL) 1 BRIAN L <2 MG Specimen Hemolysis (1 NORMAL Index/DL) 1 NORMAL <10 MG Coagulation PT (9.4 - 12.5 SECONDS) 21.3 H INR (0.88 - 1.13 INR Unit) 1.87 H PTT (Dickinson) (24 - 37.7 SECONDS) 30.8 Hematology WBC (4.1 - 12.1 K/mm3) 14.6 H RBC (3.8 - 5.5 M/mm3) 1.07 *L Hgb (10.6 - 15.8 G/DL) 3.2 *L Hct (31.8 - 47.4 %) 10.8 *L MCV (80.1 - 101.1 fL) 100.9 MCH (25.3 - 35.3 pg) 29.9 MCHC (32.7 - 35.1 G/DL) 29.6 L RDW (12.2 - 16.4 %) 16.5 H Plt Count (155 - 337 K/mm3) 217 MPV (6.8 - 11.2 fL) 12.5 H Gran % (37.8 - 82.6 %) 71.3 Lymph % (Auto) (14.1 - 45.4 %) 4.2 L [place] % (Auto) (2.5 - 11.7 %) 12.6 H Eos % (Auto) (0.0 - 6.2 %) 0.3 Baso % (Auto) (0.0 - 2.1 %) 0.0 Gran # (2.0 - 13.7 k/mm3) 10.44 Lymph # (Auto) (0.6 - 3.8 K/mm3) 0.61 [place] # (Auto) (0.11 - 0.59 K/mm3) 1.85 H Eos # (Auto) (0.0 - 0.4 K/mm3) 0.04 Baso # (Auto) (0.0 - 0.1 K/mm3) 0.00 Add Manual Diff (CRITERIA DIFF/SCN) MAN DIFF IN DICATED Total Counted (100 #CELLS) 100 Immature Gran % (0.0 - 2.0 %) 11.6 H Seg Neutrophils % (40 - 75 %) 82 H Lymphocytes % (Manual) (18.7 - 40.6 %) 9 L Atypical Lymphs % (0 - 0 %) 2 H Monocytes % (Manual) (3.8 - 11.4 %) 2 L Nucleated RBC % (0.0 - 1.0 /100WBC%) 1.6 H Myelocytes (0 - 1 %) 4 H Promyelocytes (0 - 0 %) 1 H Nucleated RBCs # (0.0 - 0.05 K/mm3) 0.24 H Platelet Estimate (ADEQUATE ON SCAN) ADEQ Polychromasia (NONE ON SCAN) SLIGHT Anisocytosis (NONE ON SCAN) MOD H [place] Cells (NONE ON SCAN) FEW Microbiology: Date/Time Procedure - Status Source Growth 04/27 1956 Blood Culture - ORD BLOOD 04/27 1956 Blood Culture - ORD BLOOD Recent Impressions: RADIOLOGY - XR ABDOMEN 1 V 04/27 2010 Report Impression - Status: SIGNED Entered: 04/27/20192046 Impression: Appearance of the abdomen is nearly nondiagnosti c secondary to patient's habitus. No definite prominent small b owel dilation is visualized. Impression By: [email or web address] - Lorena Patton RADIOLOGY - XR CHEST 1 V 04/27 2033 Report Impression - Status: SIGNED Entered: 04/27/20192108 IMPRESSION: No definite consolidation. Question vascular con gestion, evaluation limited by low lung volumes Nonspecific prominence of the upper mediastinum Impression By: [email or web address] Mildred Patton ECG #1 Interpretation Date 04/27/19 Interpreted by ED physician Rate 109 ECG Q-T-ST - GA Non-specific ST changes Rhythm Tachycardia Portions of this section were scribed by Liat Bennett on 04/27/19 at 2036 Re-Evaluation MDM )( Re-Evaluation/Progress #1 Text/Dict Note Pt is now receiving 4th unit of PRVCs. No distress. Time of Re-Eval 2013 )( Re-Eval Status Improved Re-Evaluation/Progress #2 Text/Dict Note Reviewed labs and imaging w/ pt. Offered pt admi ssion for further care and evaluation. All questions an d concerns addressed. Pt is agreeable w/ the plan of care. Time of Eval 2036 Re-Eval Status Unchanged ED Course Medication(s) Ordered Medication(s) Ordered: Antineoplastic Agents Sig/Ever Start time Last Medication Dose Route Stop Time Status Admin Octreotide Acetate 500 MCG .[id number] ONE 04/27 2 000 CKD Sodium Chloride 249 ML IV 04/28 0829 Electrolytic, Caloric, And Stephen Sig/Ever Start time Last Medication Dose Route Stop Time Status Admin Calcium Gluconate 1,000 MG X1ED STA 04/27 2106 DC 04/27 Sodium Chloride 100 ML IV 04/275 2133 Gastrointestinal Drugs Sig/Ever Start time Last Medication Dose Route Stop Time Status Admin Pantoprazole Sodium 80 MG X1ED STA 04/27 1946 A C Sodium Chloride 100 ML IV 04/28 0545 Consultation Consultation Referral/Consult Name Sandy South MD Dispatcher Street Department Called Gastroenterology Requested Call Time 2014 Requested Call Date 04/27/19 Call Returned Call returned Call Returned Time 2014 Call Returned Date 04/27/[address] Department Agrees with eval, Agrees with plan Free Text Consult Notes No emergent endoscopy plan Portions of this section were scribed by Liat Bennett on 04/27/19 at 2036 Patient Discharge Departure Vital Signs/Condition Vital Signs First Documented: Result Date Time Pulse Ox 100 04/27 1930 B/P 79/46 04/27 1930 B/P Mean 57 04/27 1930 O2 Delivery Room air 04/27 1930 Temp 98.4 04/27 1930 Pulse 132 04/27 1930 Resp 20 04/27 1930 Last Documented: Result Date Time Pulse Ox 100 04/27 1930 B/P 79/46 04/27 1930 B/P Mean 57 04/27 1930 O2 Delivery Room air 04/27 1930 Temp 98.4 04/27 1930 Pulse 132 04/27 1930 Resp 20 04/27 1930 All vital signs available at the time of this en try have been reviewed. Condition Stable Clinical Impression Clinical Impression Primary Impression: Upper GI bleed Secondary Impressions: Hemor rhagic shock, Metabolic acidosis, Symptomatic anemia Time of Impression 2037 Disposition Decision Admit Admit Physician Name Jenny Cruz MD Admit Physician Hospitalist Request Time 2037 Request Date 04/27/19 )( Admission Accepts Yes )( Accepted Time 2037 )( Accepted Date 04/27/19 Call Information will see patient, agrees with eval, agrees with plan Critical Care Time Spent (minutes): 60 Services Performed Patient management by Alberto yan spent at bedside, Reviewing test results, Reviewing imaging, Discussing areli ent care, Documentation in record, Time with fam/surrogate Separately billable procedures excluded from alberto urszula. Patient was critically ill due to: GI bleed My treatment and management were: blood transfusion continued CC Note 1 Total critical care time [60 ] minutes. Total critical care time documented does not include time spent on separately billed proc edures or the services of residents, students, nurses or physician assista nts. I personally saw and examined the patient. I have reviewed all diagno stic interpretations and treatment plans as written. I was present for the gonzalez portions of any procedures performed and the inclusive time noted in any critical care statement. Critical care time includes patient m anagement by me, time spent at the patients bedside, time to review lab and imaging results, discussing patient care, documentation in the medical record, and time spent with the f amily or caregiver. CC Note 2 The high probability of sudden, clinically signi ficant deterioration in the patient's condition required the highest level of my preparedness to intervene urgently. The services I provided to t his patient were to treat and/or prevent clinically significant deterioration that could result in s evere disability or . Services included the follow ing: chart data review, reviewing nursing notes and/ or old charts, documentation time, consu ltant collaboration regarding findings and treatment options, medic ation orders and management, direct patient care, re -evaluations, vital sign assessments and orderin g, interpreting and reviewing diagnostic studies/lab tests. Aggregate critical care time was [60] mi nutes, which includes only time during which I was engaged in work directly related to the patient's care, as described above, whether at the bedside or elsewhe re in the Emergency Department. It did not include time spent performing other reported procedures or the services of residents, students, nurses or physician assista nts. Supervising Physician Note Scribe Statement Liat Bennett, 04/27/192015, scribing for and in the presence of [Oscar Mcleod]. Signed By: Liat Bennett, 04/27/192015 Provider Scribed Statement I personally performed the s ervices described in this documentation and reviewed the documentation that was dictated to the scrib e(s) in my presence, and it accurately records my words and actions. Oscar Mcleod, 04/27/19 Portions of this section were scribed by Liat Bennett on 04/27/19 at 2037 Electronically Signed by Oscar Mcleod MD on at [address] [facility] #:[id number] END OF REPORT
[2023-03-18] MEDS ORDERED: METOPROLOL TAR 25 MG TAB ONE (20:54)
[2023-03-18] MEDS ORDERED: FUROSEMIDE 40 MG/4 ML VIAL ONE (20:54)
[2023-03-18] MEDS ORDERED: ALBUMIN HUMAN 25% 100 ML IV ONE ×2 (20:55→22:22)
[2023-03-18 20:56] LABS: Absolute Lymphocytes (CBC) 0.5 K/uL (0.7-4.9); Lymphocytes % 6.8 % (15.3-44.8); MCV 96.3 fL (80-100); Platelets 108 thou/uL (152-406); RBC Red Blood Cell Count 4.05 M/uL (3.86-4.86)
[2023-03-18] MEDS ORDERED: SPIRONOLACTONE 25 MG TABLET ONE (20:56)
[2023-03-18 20:59] LABS: Protime INR 1.21
[2023-03-18 21:12] LABS: Albumin 2.8 g/dL (3.4-5.0); Bilirubin Direct 1.6 mg/dL (0-0.2); Bilirubin Indirect, Calculated 2.7 mg/dL (0.2-0.8); Bilirubin Total 4.3 mg/dL (0.2-1.0); Magnesium 2.1 mg/dL (1.6-2.4); Protein, Total 8.1 g/dL (6.4-8.2)
--- NOTE | 2023-03-18 21:12 | RAD REPORT ---
EXAM DESCRIPTION: RAD - Chest Single View - 03/18/2023 9:03 pm CLINICAL HISTORY: CHEST PAIN Chest pain. COMPARISON: <Comparisons> FINDINGS: Portable technique limits examination quality. Moderate pulmonary edema. The heart is significantly enlarged. No displaced fractures. IMPRESSION: Moderate CHF.
[2023-03-18 21:23] LABS: Troponin High Sensitivity 190.6 pg/mL (<58.9)
[2023-03-18] MEDS ORDERED: MORPHINE 4 MG/ML SYR ONE (22:14)
[2023-03-18] MEDS ORDERED: ONDANSETRON 4 MG/2 ML VIAL ONE (22:14)
--- NOTE | 2023-03-18 23:18 | ER ---
Nurse's Notes [facility] [place] Name: Amauri Miller Age: 52 yrs Sex: Female : 1970 Arrival Date: 03/18/2023 Time: 20:11 Bed 5 Private MD: Diagnosis: Acute on chronic systolic (congestive) heart failure;Alcoholic cirrhosis of liver with ascites;Subsequent non-ST elevation (NSTEMI) myocardial infarction;Abdominal wound dehiscence, thrombocytopenia, chronic alcoholic liver cirrhosis, lactic acidosis, combined systolic and diastolic heart failure, pulmonary edema Presentation: 03/18 20:00 Chief complaint: EMS states: Pt called EMS for edema to the face for the past 2 days. jb4 20:00 Coronavirus screen: At this time, the client does not indicate any symptoms associated jb4 with coronavirus-19. Ebola Screen: No symptoms or risks identified at this time. Initial Sepsis Screen: Does the patient meet any 2 criteria? RR > 20 per min. HR > 90 bpm. Yes Does the patient have a suspected source of infection? Yes: Skin breakdown/wound. Risk Assessment: Do you want to hurt yourself or someone else? Patient reports no desire to harm self or others. Onset of symptoms was March 16, 2023. Transition of care: patient was not received from another setting of care. 20:00 Method Of Arrival: EMS: [facility] jb4 20:00 Acuity: CASI 3 jb4 Historical: - Allergies: 21:14 No Known Allergies; jb4 - PMHx: 20:28 Anemia; Cirrhosis; esophageal varices; Hernia; second one, not repaired; possible htn; sp4 Screenin/15 04:55 [facility] ED Fall Risk Assessment (Adult) History of falling in the last 3 months, jb4 including since admission No falls in past 3 months (0 pts) Confusion or Disorientation No (0 pts) Score/Fall Risk Level 0 - 2 = Low Risk Oriented to surroundings, Maintained a safe environment. Abuse screen: Denies threats or abuse. Nutritional screening: No deficits noted. Tuberculosis screening: No symptoms or risk factors identified. Assessment: 03/18 20:00 General: Appears in no apparent distress. uncomfortable, Behavior is calm, cooperative, jb4 appropriate for age. Pain: Complains of pain in Generalized body pains Pain does not radiate. Pain currently is 8 out of 10 on a pain scale. Neuro: Level of Consciousness is awake, alert, obeys commands, Oriented to person, place, time, situation. Cardiovascular: Patient's skin is warm and dry. Respiratory: Airway is patent Respiratory effort is even, unlabored, Respiratory pattern is regular, symmetrical. GI: Wound to the right side of the abdomen. : No signs and/or symptoms were reported regarding the genitourinary system. EENT: No signs and/or symptoms were reported regarding the EENT system. Derm: Skin is intact, Skin is pink, warm \T\ dry. Musculoskeletal: Circulation, motion, and sensation intact. Range of motion: intact in all extremities. 21:16 Reassessment: Patient appears in no apparent distress at this time. Patient and/or jb4 family updated on plan of care and expected duration. Pain level reassessed. Patient is alert, oriented x 3, equal unlabored respirations, skin warm/dry/pink. 22:10 Reassessment: Patient appears in no apparent distress at this time. Patient and/or jb4 family updated on plan of care and expected duration. Pain level reassessed. Patient is alert, oriented x 3, equal unlabored respirations, skin warm/dry/pink. 23:50 Reassessment: Pt resting in bed with eyes closed, respirations are even and unlabored jb4 with no s/s of pain or distress noted. 03/19 01:00 Reassessment: Patient appears in no apparent distress at this time. Patient and/or jb4 family updated on plan of care and expected duration. Pain level reassessed. Patient is alert, oriented x 3, equal unlabored respirations, skin warm/dry/pink. 02:00 Reassessment: Patient appears in no apparent distress at this time. Patient and/or jb4 family updated on plan of care and expected duration. Pain level reassessed. Patient is alert, oriented x 3, equal unlabored respirations, skin warm/dry/pink. 03:00 Reassessment: Patient appears in no apparent distress at this time. Patient and/or jb4 family updated on plan of care and expected duration. Pain level reassessed. Patient is alert, oriented x 3, equal unlabored respirations, skin warm/dry/pink. 04:00 Reassessment: Patient appears in no apparent distress at this time. Patient and/or jb4 family updated on plan of care and expected duration. Pain level reassessed. Patient is alert, oriented x 3, equal unlabored respirations, skin warm/dry/pink. Vital Signs: 03/18 20:00 BP 119 / 79; Pulse 125; Resp 23; Temp 99.5(O); Pulse Ox 100% on R/A; Weight 88.9 kg; jb4 21:16 BP 117 / 40; Pulse 125; Resp 18; Pulse Ox 99% on R/A; jb4 22:10 BP 101 / 71; Pulse 96; Resp 19; Pulse Ox 95% on R/A; jb4 23:30 BP 109 / 75; Pulse 96; Resp 16; Pulse Ox 98% on 2 lpm NC; jb4 03/19 01:00 BP 110 / 81; Pulse 96; Resp 16; Pulse Ox 97% on 2 lpm NC; jb4 02:15 BP 114 / 85; Pulse 96; Resp 22; Pulse Ox 96% on 2 lpm NC; jb4 03:30 BP 105 / 84; Pulse 96; Resp 20; Pulse Ox 96% on 2 lpm NC; jb4 ED Course: 03/18 20:12 Patient arrived in ED. rv1 20:13 Marshall Lin MD is Attending Physician. sp4 20:30 Patient has correct armband on for positive identification. Bed in low position. Call jb4 light in reach. Side rails up X 1. Client placed on continuous cardiac and pulse oximetry monitoring. NIBP monitoring applied. screen tacker on. 20:38 Bharat Flores, RN is Primary Nurse. jb4 21:05 XRAY Chest (1 view) In Process Unspecified. EDMS 21:13 Triage completed. jb4 21:14 Arm band placed on right wrist. jb4 23:16 Larry Lee MD is Hospitalizing Provider. sp4 03/19 00:10 CT Abd/Pelvis - Without Contrast In Process Unspecified. EDMS 00:39 Navneet Akers MD is Hospitalizing Provider. la1 02:05 Attempted to initiate transfer with [facility] but was declined due capacity. rv1 02:15 Initiated transfer with Carmen at [facility]. rv1 02:42 Pt accepted to [facility] by Dr. Mckay. rv1 04:56 No provider procedures requiring assistance completed. Patient transferred, IV remains jb4 in place. Administered Medications: 03/18 20:59 Drug: Furosemide IVP 40 mg Route: IVP; Site: left forearm; jb4 20:59 Drug: Spironolactone PO 50 mg Route: PO; jb4 20:59 Drug: Albumin IVPB 25 grams Volume: 100 ml; Route: IVPB; Site: left forearm; jb4 20:59 Drug: Metoprolol PO 25 mg Route: PO; jb4 22:09 Drug: morphine IVP or IV 4 mg Route: IVP; Infused Over: 4 mins; Site: left forearm; jb4 22:09 Drug: Ondansetron IVP 4 mg Route: IVP; Site: left forearm; jb4 22:12 Drug: Albumin IVPB 25 grams Volume: 100 ml; Route: IVPB; Site: left forearm; jb4 Outcome: 23:17 Decision to Hospitalize by Provider. sp4 03/19 02:43 ER care complete, transfer ordered by . sp4 04:56 Transferred by ground EMS to [facility], Transfer form jb4 completed. X-rays sent w/ patient. 04:56 Condition: stable 04:56 Discharge instructions given to patient, Instructed on the need for transfer, Demonstrated understanding of instructions. 04:56 Patient left the ED. jb4 Signatures: Dispatcher [employer] EDMS Nam Barkley, CROWNING HAMMER OPERATOR-C CROWNING HAMMER OPERATOR-Cla1 Bharat Flores, RN RN jb4 Stacie Rolon rv1 Marshall Lin MD MD sp4 Corrections: (The following items were deleted from the chart) 04:07 03/18 23:30 BP 109 / 75; Pulse 96bpm; Resp 16bpm; Pulse Ox 98% RA; jb4 jb4
--- NOTE | 2023-03-18 23:18 | EDPHYS ---
Physician Documentation [facility] Name: Amauri Miller Age: 52 yrs Sex: Female : 1970 Arrival Date: 03/18/2023 Time: 20:11 Bed 5 Private MD: ED Physician Marshall Lin HPI: 03/18 20:13 This 52 yrs old Female presents to ER via Unassigned with complaints of edema. sp4 20:26 52-year-old female presents with worsening generalized edema associated with sp4 shortness of breath. Patient has history of liver cirrhosis generally she takes Lasix and Aldactone but has been out of her medications for over a month. Patient arrived with EMS her primary complaint is facial swelling and bilateral lower extremity swelling. Patient reports that her abdomen feels full but is not tensely distended. Patient reports shortness of breath with physical exertion, . 23:17 Past medical history positive for ascites with prior paracentesis. History of sp4 large-volume paracentesis up to 12 L. Chronic alcoholic cirrhosis. Acute on chronic anemia. Esophageal varices portal hypertensive gastropathy. Prior upper GI bleed. Blood transfusion. Orthostatic hypotension. Anemia of chronic disease. Also chronic enterocutaneous fistula. . Historical: - Allergies: 21:14 No Known Allergies; jb4 - PMHx: 20:28 Anemia; Cirrhosis; esophageal varices; Hernia; second one, not repaired; possible htn; sp4 ROS: 20:28 Constitutional: Negative for fever, chills, and weight loss, positive generalized sp4 weakness Cardiovascular: Negative for chest pain, palpitations, positive shortness of breath with physical exertion, positive generalized edema, positive lower extremity edema with pitting 20:28 All other systems are negative. Exam: 20:28 Constitutional: This is a well developed, well nourished patient who is awake, alert, sp4 patient is ill-appearing, no acute distress, nontoxic-appearing, mild jaundice , generalized edema with facial edema and bilateral lower extremity edema Head/Face: Normocephalic, atraumatic. Eyes: Pupils equal round and reactive to light, extra-ocular motions intact. Lids and lashes normal. Conjunctiva and sclera are not injected. Cornea within normal limits. Periorbital areas with no swelling, redness, or edema. ENT: Nares patent. No nasal discharge, no septal abnormalities noted. Tympanic membranes are normal and external auditory canals are clear. Oropharynx with no redness, swelling, or masses, exudates, or evidence of obstruction, uvula midline. Mucous membranes moist. Neck: Trachea midline, no thyromegaly or masses palpated, and no cervical lymphadenopathy. Supple, full range of motion without nuchal rigidity, or vertebral point tenderness. Positive jugular venous distention Chest/axilla: Normal chest wall appearance and motion. Nontender with no deformity. No lesions are appreciated. Cardiovascular: Regular rate and rhythm with a normal S1 and S2. No gallops, murmurs, or rubs. Normal PMI, No pulse deficits. Positive jugular venous distention, positive bilateral lower extremity edema with pitting +2 Respiratory: Lungs have equal breath sounds bilaterally, clear to auscultation and percussion. No rales, rhonchi or wheezes noted. No increased work of breathing, no retractions or nasal flaring. Abdomen/GI: Soft, non-tender, with normal bowel sounds. No distension or tympany. No guarding or rebound. No evidence of tenderness throughout. There is right lower abdomen enterocutaneous chronic appearing fistula with surrounding scar. Enterocutaneous fistula appears to be active with fecal matter Back: No spinal tenderness. No costovertebral tenderness. Skin: Warm, dry with normal turgor. with no rashes, no lesions, and no evidence of cellulitis. Positive jaundice MS/ Extremity: Pulses equal, no cyanosis. Neurovascular intact. Full, normal range of motion. Neuro: Awake and alert, GCS 15, oriented to person, place, time, and situation. Cranial nerves II-XII grossly intact. Motor strength 5/5 in all extremities. Sensory grossly intact. Psych: Awake, alert, with orientation to person, place and time. Behavior, mood, and affect are within normal limits 20:28 ECG was reviewed by the Attending Physician. EKG time 2019, there is sinus tachycardia interventricular block, no ST elevations, no ectopy 23:06 Please repeat EKG 2214, sinus rhythm at rate of 95, interventricular block present, sp4 no ST elevation, inverted depressed T waves leads III and aVF. Inverted T wave lead to no sign of ST elevated CA. No ectopy Vital Signs: 20:00 BP 119 / 79; Pulse 125; Resp 23; Temp 99.5(O); Pulse Ox 100% on R/A; Weight 88.9 kg; jb4 21:16 BP 117 / 40; Pulse 125; Resp 18; Pulse Ox 99% on R/A; jb4 22:10 BP 101 / 71; Pulse 96; Resp 19; Pulse Ox 95% on R/A; jb4 23:30 BP 109 / 75; Pulse 96; Resp 16; Pulse Ox 98% on 2 lpm NC; jb4 03/19 01:00 BP 110 / 81; Pulse 96; Resp 16; Pulse Ox 97% on 2 lpm NC; jb4 02:15 BP 114 / 85; Pulse 96; Resp 22; Pulse Ox 96% on 2 lpm NC; jb4 03:30 BP 105 / 84; Pulse 96; Resp 20; Pulse Ox 96% on 2 lpm NC; jb4 MDM: 03/18 20:15 Patient medically screened. sp4 23:12 Differential Diagnosis altered mental status, sepsis, flu. sp4 23:13 Data reviewed: vital signs, nurses notes, EMS record, old medical records, lab test sp4 result(s), EKG, radiologic studies, CT scan, plain films. Consideration of Admission/Observation Patient was admitted/placed on observation. Escalation of care including admission/observation considered. Management of patient was discussed with the following: Hospitalist: Discussed with admission team. ED course: Patient has elevated BNP, elevated troponin, signs of pulmonary edema on chest x-ray, signs of volume overload, exam revealed enterocutaneous abdominal fistula that is quite old but appears to be persistent. Patient at this time waiting for CT abdomen pelvis with p.o. contrast. . 23:14 ED course: Troponin is also elevated likely secondary to heart failure and volume sp4 overload. Patient denied chest pain on evaluation. CT is pending, EKG and repeat EKG revealed no ST elevations. . 03/19 01:24 ED course: CT report - IMPRESSION: 1. No findings to suggest enterocutaneous fistula. sp4 2. Moderate amount residual gas and stool within the ascending and transverse colon. 3. Moderately severe dehiscence of the anterior abdominal wall at about the umbilicus. 4. Evidence of anasarca with bilateral pleural effusions and diffuse subcutaneous edema. 5. Hepatic cirrhosis status post placement of a portal caval shunt. 6. Small amount of peritoneal ascites. 7. Questionable cystitis. Electronically signed by: Arcenio Yadav MD 03/19/2023 12:48 AM. 03/18 20:14 Order name: Basic Metabolic Panel; Complete Time: 21:32 sp4 03/18 20:14 Order name: CBC with Diff; Complete Time: 21:15 sp4 03/18 20:14 Order name: LFT's; Complete Time: 21:32 sp4 03/18 20:14 Order name: Magnesium; Complete Time: 21:32 sp4 03/18 20:14 Order name: NT PRO-BNP; Complete Time: 21:32 4 03/18 20:14 Order name: PT-INR; Complete Time: 21:15 sp4 03/18 20:14 Order name: Troponin HS; Complete Time: 21:32 sp4 03/18 20:24 Order name: Lactate w/ 2H reflex if indic.; Complete Time: 21:32 jb4 03/18 20:24 Order name: Blood Culture Adult (2) [facility] 03/18 20:38 Order name: AMMONIA; Complete Time: 21:15 jb4 03/18 23:13 Order name: SARS RAPID; Complete Time: 01:17 sp4 03/19 01:27 Order name: Troponin High Sensitivity; Complete Time: 02:39 kl 03/19 02:03 Order name: Lactate Sepsis 2 HR Follow-up; Complete Time: 02:39 EDMS 03/18 20:14 Order name: XRAY Chest (1 view); Complete Time: 21:15 sp4 03/18 20:44 Order name: CT Abd/Pelvis - Without Contrast 4 03/18 20:14 Order name: EKG; Complete Time: 20:15 4 03/18 22:09 Order name: EKG; Complete Time: 22:09 4 03/18 20:14 Order name: Cardiac monitoring; Complete Time: 20:39 sp4 03/18 20:14 Order name: EKG - Nurse/Tech; Complete Time: 20:39 4 03/18 20:14 Order name: IV Saline Lock; Complete Time: 20:39 4 03/18 20:14 Order name: Labs collected and sent; Complete Time: 20:39 4 03/18 20:14 Order name: O2 Per Protocol; Complete Time: 20:39 4 03/18 20:14 Order name: O2 Sat Monitoring; Complete Time: 20:39 sp4 03/18 22:09 Order name: EKG - Nurse/Tech; Complete Time: 22:37 sp4 EC/14 20:28 Rate is 124 beats/min. Rhythm is regular, Sinus tachycardia. [place] interval is normal. QRS sp4 interval is prolonged. QT interval is normal. T waves are Inverted in leads III, aVF. Administered Medications: 20:59 Drug: Furosemide IVP 40 mg Route: IVP; Site: left forearm; jb4 20:59 Drug: Spironolactone PO 50 mg Route: PO; jb4 20:59 Drug: Albumin IVPB 25 grams Volume: 100 ml; Route: IVPB; Site: left forearm; jb4 20:59 Drug: Metoprolol PO 25 mg Route: PO; jb4 22:09 Drug: morphine IVP or IV 4 mg Route: IVP; Infused Over: 4 mins; Site: left forearm; jb4 22:09 Drug: Ondansetron IVP 4 mg Route: IVP; Site: left forearm; jb4 22:12 Drug: Albumin IVPB 25 grams Volume: 100 ml; Route: IVPB; Site: left forearm; jb4 Disposition Summary: 03/19/23 02:43 Transfer Ordered Transfer Location: [facility] sp4 Reason: Higher level of care sp4 Condition: Serious(03/19/23 02:43) sp4 Problem: new(03/19/23 02:43) sp4 Symptoms: have improved(03/19/23 02:43) sp4 Accepting Physician: Albin BULLOCK Cardiology(03/19/23 04:56) jb4 Diagnosis - Acute on chronic systolic (congestive) heart failure(03/19/23 02:43) sp4 - Alcoholic cirrhosis of liver with ascites sp4 - Subsequent non-ST elevation (NSTEMI) myocardial infarction sp4 - Abdominal wound dehiscence, thrombocytopenia, chronic alcoholic liver cirrhosis, sp4 lactic acidosis, combined systolic and diastolic heart failure, pulmonary edema Forms: - Medication Reconciliation Form sp4 - SBAR form sp4 Signatures: Dispatcher [employer] EDMS Nam Barkley, DARRICKC VICE CHAIR-Cla1 Bharat Flores, RN RN jb4 Marshall Lin MD MD sp4 Corrections: (The following items were deleted from the chart) 21:45 21:32 Abdomen Pelvis W Con+CT.RAD.BRZ ordered. EDMS EDMS 23:19 20:28 Constitutional: This is a well developed, well nourished patient who is awake, sp4 alert, patient is ill-appearing, no acute distress, nontoxic-appearing, mild jaundice , generalized edema with facial edema and bilateral lower extremity edema Head/Face: Normocephalic, atraumatic. Eyes: Pupils equal round and reactive to light, extra-ocular motions intact. Lids and lashes normal. Conjunctiva and sclera are not injected. Cornea within normal limits. Periorbital areas with no swelling, redness, or edema. ENT: Nares patent. No nasal discharge, no septal abnormalities noted. Tympanic membranes are normal and external auditory canals are clear. Oropharynx with no redness, swelling, or masses, exudates, or evidence of obstruction, uvula midline. Mucous membranes moist. Neck: Trachea midline, no thyromegaly or masses palpated, and no cervical lymphadenopathy. Supple, full range of motion without nuchal rigidity, or vertebral point tenderness. Positive jugular venous distention Chest/axilla: Normal chest wall appearance and motion. Nontender with no deformity. No lesions are appreciated. Cardiovascular: Regular rate and rhythm with a normal S1 and S2. No gallops, murmurs, or rubs. Normal PMI, No pulse deficits. Positive jugular venous distention, positive bilateral lower extremity edema with pitting +2 Respiratory: Lungs have equal breath sounds bilaterally, clear to auscultation and percussion. No rales, rhonchi or wheezes noted. No increased work of breathing, no retractions or nasal flaring. Abdomen/GI: Soft, non-tender, with normal bowel sounds. No distension or tympany. No guarding or rebound. No evidence of tenderness throughout. Back: No spinal tenderness. No costovertebral tenderness. Skin: Warm, dry with normal turgor. with no rashes, no lesions, and no evidence of cellulitis. Positive jaundice MS/ Extremity: Pulses equal, no cyanosis. Neurovascular intact. Full, normal range of motion. Neuro: Awake and alert, GCS 15, oriented to person, place, time, and situation. Cranial nerves II-XII grossly intact. Motor strength 5/5 in all extremities. Sensory grossly intact. Psych: Awake, alert, with orientation to person, place and time. Behavior, mood, and affect are within normal limits sp4 03/19 00:39 03/18 23:17 Larry Lee sp4 la1 03/19 02:41 03/18 23:17 Inpatient Admission sp4 sp4 03/19 02:41 03/18 23:17 Telemetry/MedSurg (Inpatient) sp4 sp4 03/19 02:41 03/18 23:17 Stable sp4 sp4 03/19 02:41 03/18 23:17 new sp4 sp4 03/19 02:41 03/18 23:17 have improved sp4 sp4 03/19 02:41 03/18 23:17 Standard sp4 sp4 03/19 02:41 03/18 23:17 sp4 sp4 03/19 02:41 03/18 23:17 Acute on chronic systolic (congestive) heart failure sp4 sp4 03/19 02:41 03/18 23:17 Volume overload, non-ST elevated CA, liver cirrhosis, noncompliance with sp4 medical management, thrombocytopenia, pulmonary edema sp4 03/19 02:41 00:39 Navneet Akers la1 sp4 04:56 02:43 Albin BULLOCK Cardiology sp4 jb4
[2023-03-18 23:35] LABS: SARS-CoV-2 Antigen Rapid Res Negative (Negative)
[2023-03-19 05:20] VITALS: O2SAT 96
[2023-03-19 05:21] VITALS: BP 105/84
--- NOTE | 2023-03-19 13:36 | RAD REPORT ---
EXAM DESCRIPTION: CT - Abdomen Pelvis Wo Contrast - 03/19/2023 6:46 am CLINICAL HISTORY: Assess for enterocutaneous fistula. TECHNIQUE: CT scan of the abdomen and pelvis was performed with oral and without intravenous contras t. 5 mm axial images were obtained along with coronal and sagittal reformatted images. COMPARISON: 01/29/2019. DOSE OPTIMIZATION: This facility uses dose optimization techniques as appropriate to perform exams, i ncluding at least one of the following techniques: 1. Automated exposure control. 2. Adjustment of the mA and/or kV according to patient size (this includes techniques or standardized protocols for targeted exams where dose is matched to the indication/reason for exam, i.e. extremiti es or head). 3. Use of iterative reconstructive technique. FINDINGS: Lung Bases: There are no active infiltrates. There is a moderate-sized right pleural effusion and a small left pleural effusion. There is mild compressive atelectasis in the posterior lung bases. There is a moderate-sized pericardial effusion. There is mild cardiomegaly. Liver: There is been interval placement of a portal caval shunt. There is evidence of hepatic cirrhos is. Spleen: Normal. Pancreas: Normal. Gallbladder: There is evidence of cholelithiasis. Adrenal Glands: Normal. Kidneys: Normal. Retroperitoneal Structures: There is moderately severe obstructive disease about the abdominal aorta and iliac arteries. Bowel Survey: There is oral contrast within the stomach, throughout the small bowel, and within the ascending colon . The stomach is nondistended. The small bowel is unremarkable. The appendix is unremarkable. There is a moderate residual gas and stool within the ascending and transverse colon. There is severe diverticulosis of the sigmoid colon. There are no findings to suggest enterocutaneous fistula. Uterus and Adnexa: Normal. Urinary Bladder: There is mild urinary bladder wall thickening. Consider cystitis. Peritoneal Cavity: There is a small amount of peritoneal ascites. Mesenteric Structures: Normal. Abdominal Wall: There is a dehiscent of the anterior abdominal wall at and below above the umbilicus. This area measures 6.2 x 7.7 cm maximal transverse and longitudinal dimensions respectively. There is moderately severe diffuse subcutaneous edema suggestive of anasarca. Bony Structures: No suspicious lesions. IMPRESSION: 1. No findings to suggest enterocutaneous fistula. 2. Moderate amount residual gas and stool within the ascending and transverse colon. 3. Moderately severe dehiscence of the anterior abdominal wall at about the umbilicus. 4. Evidence of anasarca with bilateral pleural effusions and diffuse subcutaneous edema. 5. Hepatic cirrhosis status post placement of a portal caval shunt. 6. Small amount of peritoneal ascites. 7. Questionable cystitis. Electronically signed by: Arcenio Yadav MD 03/19/2023 12:48 AM CDT Due to temporary technical issues with the PACS/Fluency reporting system, reports are being signed by the in house radiologists without review as a courtesy to insure prompt reporting. The interpreting radiologist is fully responsible for the content of the report.
--- NOTE | 2023-03-19 17:02 | EKG ---
Test Date: 2023-03-18 Test Time: 22:14:39 Learning Developer: IRAM MEASUREMENT RESULTS: Intervals: Rate: 95 MN: 162 QRSD: 148 QT: 432 QTc: 542 [place]: P: 48 MN: 162 QRS: 101 T: -37 INTERPRETIVE STATEMENTS: Normal sinus rhythm Nonspecific intraventricular block Lateral infarct, age undetermined Abnormal ECG Compared to ECG 03/18/2023 20:20:48 Myocardial infarct finding now present Sinus tachycardia no longer present T-wave abnormality no longer present Possible ischemia no longer present Electronically Signed On 03-19-23 17:01:03 CDT by Filiberto Soliz
--- NOTE | 2023-03-19 17:02 | EKG ---
Test Date: 2023-03-18 Test Time: 20:20:48 Hris Administrator: CESAR MEASUREMENT RESULTS: Intervals: Rate: 124 MO: 138 QRSD: 132 QT: 340 QTc: 488 [place]: P: 53 MO: 138 QRS: 74 T: -50 INTERPRETIVE STATEMENTS: Sinus tachycardia Nonspecific intraventricular block T wave abnormality, consider inferior ischemia Abnormal ECG Compared to ECG 12/06/2018 04:46:01 T-wave abnormality now present Possible ischemia now present Electronically Signed On 03-19-23 17:01:19 CDT by Filiberto Soliz
== END 2023-03-19 04:56 | disposition short-term general hospital (02) ==
LOC: ER 20:11
DX: I50.23 Acute on chronic systolic (congestive) heart failure (principal); K70.31 Alcoholic cirrhosis of liver with ascites; I22.2 Subsequent non-ST elevation (NSTEMI) myocardial infarction; I21.9 Acute myocardial infarction, unspecified; D69.6 Thrombocytopenia, unspecified; T81.30XA Disruption of wound, unspecified, initial encounter; E87.20 Acidosis, unspecified; J81.1 Chronic pulmonary edema; Z20.822 Contact with and (suspected) exposure to COVID-19
CPT/HCPCS: 93005 ×2; 87040 ×2; 85025; 80048; 36415; 82140; 83735; 87205 ×3; 85610; 80076; 83605 ×2; 84484 ×2; 83880; 74176; 71045; 87811; J1940; J2405; P9047 ×2; 96374; 96375; 99285

== ENCOUNTER 2023-06-06 00:43 | Inpatient (IN) | payer OTHER ==
--- OUTSIDE RECORDS SUMMARY | 2023-06-06 00:58 | XMS REPORT | Continuity of Care Document ---
:1970 Author Organization [facility] t Address [address] [facility] [address] [place] [address] Care Team Providers Name Role Phone Yandy BULLOCK, Alison Primary Care Physician Bela Marroquin RN Attending Clinician Matty Welch MD Attending Clinician Nafisa Lopez LVN Attending Clinician Mar Sands Attending Clinician Unavailable Doctor Unassigned, Melvina Attending Clinician Unavailable Milagros Hernandez RN Attending Clinician Unavailable Nely BULLOCK, Stefany Watson Attending Clinician Maday Hernandez MD Attending Clinician MATTY WELCH Attending Clinician Unavailable Kathy BULLOCK, Markus Attending Clinician [email or web address] Attending Clinician Unavailable JANETTE HERNANDEZ MD Attending Clinician HUGO BOOKER Attending Clinician CHANTE ZAMBRANO Attending Clinician Unavail able CLEVE ALCOCER Attending Clinician Unavailable NICK MCKENZIE Attending Clinician Unavailable RAMON ARIAS Attending Clinician Unavailable Maday Hernandez MD Admitting Clinician MADAY HERNANDEZ Admitting Clinician Unavailable [email or web address] Admitting Clinician Unavailable CHANTE ZAMBRANO Admitting Clinician Unavail able NEAL WHEELER Admitting Clinician Unavailable NICK MCKENZIE Admitting Clinician Unavailable Payers Payer Name Policy Type Policy Effective Date Expiration Date Sour ce Number MEDICAID [facility] [id number] [facility] MEDICAID [facility] JAGDEEP CARE [facility] Problems Condition Condition Condition Status Onset Resolution Last Treating Co mments Source Name Details Category Date Date Treatment Clinician Date ZUNILDA (acute ZUNILDA (acute Disease Active U julian kidney kidney 8-20 ity of injury) injury) 00:00: [place] 00 [facility] Acquired Acquired Disease Active Unive rs pancytopen pancytopen 8-20 it y of ia ia 00:00: [place] [facility] Asymptomat Asymptomat Disease Active U julian ic ic 8-20 [place] of bacteriuri bacteriuri [place] [facility] Enterococc Enterococc Disease Active U julian al al 8-18 it[place] of bacte[place] [facility] Infected Infected Disease Active Unive rs hernioplas hernioplas 8-18 it y of ty mesh ty mesh 00:00: [place] [facility] Decompensa Decompensa Disease Active U julian jean claude jean claude 8-15 ity of hepatic hepatic 00:00: [place] cirrhosis cirrhosis [address] [place] [address] Acute Acute Disease Active Univers systolic systolic 8-15 ity of heart heart 00:00: [place] failure failure 00 Medical Branch Cirrhosis Cirrhosis Disease [facility] Bleeding [facility]eding Disease [facility] Medical 00 [place] Anemia Anemia Disease [facility] Center Generalize Generalize Disease Active 2017-[address] abdominal abdominal 00:00: [facility] pain pain 00 l Ascites Ascites Disease Active 2017-08 Methodi due to due to st alcoholic alcoholic 00:00: [facility] cirrhosis cirrhosis 00 l Hepatic Hepatic Disease Recurre 2017-[address] encephalop encephalop nce 0-19 Shayla kes athy athy 00:00: Medical 00 Center suspected suspected Disease Recurre [facility] Spontaneou Spontaneou nce 7-10 Shayla kes s s 00:00: Medical bacterial bacterial 00 Cent er peritoniti peritoniti s s Thrombocyt Thrombocyt Disease Recurre [facility] openia due openia due nce 7-10 Shayla kes to to 00:00: Medical sequestrat sequestrat 00 Ce nter ion ion s/p s/p Disease Active [facility] incisional incisional 7-10 Shayla kes hernia hernia 00:00: Medical repair repair 00 Center Acute pain Acute pain Disease Active [facility] 00:00: Medical 00 [place] Melena Melena Disease Active [facility] 00[facility] Medical 00 Center Acute Acute Disease Active [facility] hepatic hepatic 7- [facility] encephalop encephalop 00:00: Id dical athy athy 00 Center Acute Acute Disease Active [facility] blood loss blood loss 7-09 Shayla kes anemia anemia 00:00: Medical 00 Center Acute Acute Disease Active [facility] upper GI upper GI 7- [facility] bleed bleed 00:00: Medical 00 Center Acute Acute Disease Active [facility] renal renal [facility] failure failure 00:00: Medical (ARF) (ARF) 00 Center Alcoholic Alcoholic Disease Recurre Last [facility] cirrhosis cirrhosis nce 4-25 Assessmen L ukes of liver of liver 00:00: t & Plan: [facility] of this note might be different from the original. Cirrhosis based on labs, clinical symptoms, and imaging. Portal Portal Disease Recurre Last [facility] St hypertensi hypertensi nce 11-27 Assessmen [place] on on 00:00: t & Plan: Medical [address] [place] [address] g of this note might be different from the original. Portal hypertens ion is evidenced by gastric and esophagea l varices seen on EGD and CT scan 10/21/17 and splenomeg tara. Ascites Ascites Disease Active Last [facility] 00:00: t & Plan: Medical [address] [place] [address] g of this note might be different from the original. Last paracente sis on 10/28/17. Patient has required paracente sis every 1 to 1.5 weeks. Screening Screening Disease Active [facility] malignant malignant 00:00: t & Plan: M edical neoplasm neoplasm [facility] ter g of this note might be different from the original. Cirrhosis , regardles s of etiology, is a risk factor for developme nt of hepatocel lular carcinoma . The annual incidence of HCC varies from 1.5-7%. Thus, we recommend surveilla nce for HCC be performed using contrast MRI or CT imaging and alphafeto protein every 6 months. Abdominal Abdominal Problem Active [facility] Rhabdomyol Problem [facility] Altered Problem Active [facility] Open wound [facility] Active [facility] anterior [facility] Urinary Problem [facility] Confusion Problem [facility] Hypertensi Hypertensi Disease Active C [facility] on on [facility] Liver Liver Disease Active [facility] disorder disorder [facility] Allergies, Adverse Reactions, Alerts Allergy Allergy Status Severity Reaction(s) Onset Inactive Treating Comm ents Source Name Type Date Date Clinician No Known DA Active U [facility] Allergie 04-27 [place] [facility] 00:00: [facility] 00 [facility] NO KNOWN Drug Active Univers ALLERGIE Class ity of S [facility] Social History Social Habit Start Date Stop Date Quantity Comments Source History of tobacco Passive smoker Un iversity of use [facility] Gender identity Universit y of [facility] Sexual orientation [facility] Tobacco use and 2023-03-20 2023-03-20 Former smokeless Uni versity of exposure 00:00:00 00:00:00 tobacco user [facility] History of Social 2019-03-26 2019-03-[address] function 00:00:00 00:00:00 Hospital Alcohol intake 2018-12-06 2018-12-06 [facility] [place] [facility] (finding) Alcohol Comment 2018-08-04 2018-08-04 quit 2 months Method ist 00:00:00 00:00:00 [facility] Cigarettes smoked 2017-11-27 2017-11-[address] [facility] current (pack per 00:00:00 00:00:00 Medical Center day) - Reported Cigarette 2017-11-27 2017-11-[address] [facility] pack-years 00:00:00 00:00:00 [facility] Center Sex Ass[birth year] At [birth year] JOSE Santos kes 00:00:00 00:00:00 [facility] Center Smoking Status Start Date Stop Date Source Smokes tobacco daily 2023-03-20 00:00:00 [facility] ity [facility] Occasional tobacco smoker 2018-08-04 00:00:00 [facility] Medications Ordered Filled Start Stop Current Ordering Indication Dosage Frequency Signature Comments Components Source Medication Medication Date Date Medication? Clinician (SIG) Name Name lactulose 2022- No 30mL 30 mL, Unive rs (CEPHULAC) 03-28 Oral, ity of solution 30 13:15: 12:44 [place]CE, 1 [place] 00 :00 dose, On Medical [place] Branch 03/28/23 at 0815, Routine spironolact Yes 50mg 50 mg, Univ ers one 03-28 Oral, BID, ity of (ALDACTONE) 01:00: First dose [place] tablet 50 00 (after Medical mg last Branch modificati on) on Sat03/27/23 at 2000, Until Discontinu ed, Routine bumetanide Yes 2mg 2 mg, Univer s (BUMEX) 8-24 Oral, BID, ity of tablet 2 mg 01:00: First dose [place] 00 (after Medical last Branch modificati on) on Sat03/27/23 at 1999, Until Discontinu ed, Routine aspirin 81 2022-0 Yes [id number] 81mg Take 1 U nivers mg chewable 8-24 tablet by ity of tablet 00:00: mouth in [place] 00 the Medical morning. Branch metoprolol 2022-0 Yes [id number] 12.5mg Take 0.5 Univers succinate 8-24 tablets by ity of XL 25 mg 24 00:00: [place] tablet 00 the Medical morning. Branch aspirin 81 2022-0 Yes [id number] 81mg Take 1 U nivers mg chewable 8-24 tablet by ity of tablet 00:00: mouth in [place] 00 the Medical morning. Branch metoprolol 2022-0 Yes [id number] 12.5mg Take 0.5 Univers succinate 8-24 tablets by ity of XL 25 mg 24 00:00: [place] tablet 00 the Medical morning. Branch aspirin 81 2022-0 Yes [id number] 81mg Take 1 U nivers mg chewable 8-24 tablet by ity of tablet 00:00: mouth in [place] 00 the Medical morning. Branch metoprolol 2022-0 Yes [id number] 12.5mg Take 0.5 Univers succinate 8-24 tablets by ity of XL 25 mg 24 00:00: [place] tablet 00 the Medical morning. Branch aspirin 81 2022-0 Yes [id number] 81mg Take 1 U nivers mg chewable 8-24 tablet by ity of tablet 00:00: mouth in [place] 00 the Medical morning. Branch metoprolol 3-0 Yes [id number] 12.5mg Take 0.5 Univers succinate 8-24 tablets by ity of XL 25 mg 24 00:00: [place] tablet 00 the Medical morning. Branch aspirin 81 2022-0 Yes [id number] 81mg Take 1 U nivers mg chewable 8-24 tablet by ity of tablet 00:00: mouth in [place] 00 the Medical morning. Branch metoprolol 3-0 Yes [id number] 12.5mg Take 0.5 Univers succinate 8-24 tablets by ity of XL 25 mg 24 00:00: [place] tablet 00 the Medical morning. Branch aspirin 81 2022-0 Yes [id number] 81mg Take 1 U nivers mg chewable 8-24 tablet by ity of tablet 00:00: mouth in [place] 00 the Medical morning. Branch metoprolol 2022-0 Yes [id number] 12.5mg Take 0.5 Univers succinate 8-24 tablets by ity of XL 25 mg 24 00:00: [place] tablet 00 the Medical morning. Branch aspirin 81 2022-0 Yes [id number] 81mg Take 1 U nivers mg chewable 8-24 tablet by ity of tablet 00:00: mouth in [place] 00 the Medical morning. Branch metoprolol 3-0 Yes [id number] 12.5mg Take 0.5 Univers succinate 8-24 tablets by ity of XL 25 mg 24 00:00: [place] hr tablet 00 the Medical morning. Branch aspirin 81 2022-0 Yes [id number] 81mg Take 1 U nivers mg chewable 8-24 tablet by ity of tablet 00:00: mouth in [place] the Medical morning. Branch aspirin 81 2022-0 Yes [id number] 81mg Take 1 U nivers mg chewable 8-24 tablet by ity of tablet 00:00: mouth in [place] the Medical morning. Branch metoprolol 2022-0 Yes [id number] 12.5mg Take 0.5 Univers succinate 8-24 tablets by ity of XL 25 mg 24 00:00: [place] hr tablet 00 the Medical morning. Branch metoprolol 2022-0 Yes [id number] 12.5mg Take 0.5 Univers succinate 8-24 tablets by ity of XL 25 mg 24 00:00: [place] tablet 00 the Medical morning. Branch aspirin 81 2022-0 Yes [id number] 81mg Take 1 U nivers mg chewable 8-24 tablet by ity of tablet 00:00: mouth in [place] 00 the Medical morning. Branch metoprolol 3-0 Yes [id number] 12.5mg Take 0.5 Univers succinate 8-24 tablets by ity of XL 25 mg 24 00:00: [place] hr tablet 00 the Medical morning. Branch aspirin 81 2022-0 Yes [id number] 81mg Take 1 U nivers mg chewable 8-24 tablet by ity of tablet 00:00: mouth in [place] 00 the morning. Branch metoprolol 2022-0 Yes [id number] 12.5mg Take 0.5 Univers succinate 8-24 tablets by ity of XL 25 mg 24 00:00: [place] tablet 00 the morning. Branch amoxicillin 2022- Yes [id number] 1000mg Take 2 Univers 500 mg 8-24 09-22 capsules ity of capsule 00:00: 04:59 by mouth [place] 00 :00 in the [facility] and 2 capsules at noon and 2 capsules in the evening. Do all this for 28 days. amoxicillin 2022- Yes [id number] 1000mg Take 2 Univers 500 mg 8-24 09-22 capsules ity of capsule 00:00: 04:59 by mouth [place] 00 :00 in the [facility] and 2 capsules at noon and 2 capsules in the evening. Do all this for 28 days. amoxicillin 2022-2022- Yes [id number] 1000mg Take 2 Univers 500 mg 8-24 09-22 capsules ity of capsule 00:00: 04:59 by mouth [place] 00 :00 in the [facility] and 2 capsules at noon and 2 capsules in the evening. Do all this for 28 days. amoxicillin 2022- Yes [id number] 1000mg Take 2 Univers 500 mg 8-24 09-22 capsules ity of capsule 00:00: 04:59 by mouth [place] 00 :00 in the [facility] and 2 capsules at noon and 2 capsules in the evening. Do all this for 28 days. amoxicillin 2022- Yes [id number] 1000mg Take 2 Univers 500 mg 8-24 09-22 capsules ity of capsule 00:00: 04:59 by mouth [place] 00 :00 in the [facility] and 2 capsules at noon and 2 capsules in the evening. Do all this for 28 days. amoxicillin 2022-2022- Yes [id number] 1000mg Take 2 Univers 500 mg 8-24 09-22 capsules ity of capsule 00:00: 04:59 by mouth [place] 00 :00 in the [facility] and 2 capsules at noon and 2 capsules in the evening. Do all this for 28 days. amoxicillin 2022- Yes [id number] 1000mg Take 2 Univers 500 mg 8-24 09-22 capsules ity of capsule 00:00: 04:59 by mouth [place] 00 :00 in the [facility] morning Branch and 2 capsules at noon and 2 capsules in the evening. Do all this for 28 days. amoxicillin 2022- Yes [id number] 1000mg Take 2 Univers 500 mg 03-28 capsules ity of capsule 00:00: 04:59 by mouth [place] 00 :00 in the [facility] Branch and 2 capsules at noon and 2 capsules in the evening. Do all this for 28 days. amoxicillin 2022- Yes [id number] 1000mg Take 2 Univers 500 mg 03-28 capsules ity of capsule 00:00: 04:59 by mouth [place] 00 :00 in the [facility] morning Branch and 2 capsules at noon and 2 capsules in the evening. Do all this for 28 days. amoxicillin 2022- Yes [id number] 1000mg Take 2 Univers 500 mg 03-28 capsules ity of capsule 00:00: 04:59 by mouth [place] 00 :00 in the [facility] Branch and 2 capsules at noon and 2 capsules in the evening. Do all this for 28 days. amoxicillin 2022- Yes [id number] 1000mg Take 2 Univers 500 mg 03-28 capsules ity of capsule 00:00: 04:59 by mouth [place] 00 :00 in the [facility] and 2 capsules at noon and 2 capsules in the evening. Do all this for 28 days. bumetanide 2022- No 1mg 1 mg, Unive rs (BUMEX) 03-27 Oral, ity of tablet 1 mg 15:00: 14:27 ONCE, 1 [place] 00 :00 dose, On Medical Sat03/27/23 at 1000, Routine spironolact Yes 50mg 50 mg, Univ ers one 03-27 Oral, ity of (ALDACTONE) 14:00: [place], [place] tablet 50 00 First dose Medi rob mg (after Branch last modificati on) on Sat03/27/23 at 0900, Until Discontinu ed, Routine spironolact 2022- No 50mg 50 mg, Uni vers one 03-27 Oral, ity of (ALDACTONE) 14:00: 14:02 DAILY, [place] tablet 50 00 :51 First dose Medi rob mg (after Branch last modificati on) on Sat03/27/23 at 0900, Until Discontinu ed, Routine bumetanide 2022-0 Yes 1mg 1 mg, Univer s (BUMEX) 8-23 Oral, BID, ity of tablet 1 mg 01:00: First dose 00 (after Medical last Branch modificati on) on Sat03/26/23 at 1999, Until Discontinu ed, Routine bumetanide 2022-0 2022- No 1mg 1 mg, Unive rs (BUMEX) 8- 08-23 Oral, BID, ity o f tablet 1 mg 01:00: 14:02 First dose [place] 00 :51 (after Medical last Branch modificati on) on Sat03/26/23 at 1999, Until Discontinu ed, Routine rosuvastati 2022-0 Yes [id number] 40mg Take 1 Univers n 40 mg 8-23 tablet by ity of tablet 00:00: mouth at [place] [address] bedtime. Medical Branch spironolact 2022-0 Yes [id number] 50mg Take 1 Univers one 50 mg 8-23 tablet by ity o f tablet 00:00: mouth in [place] the Medical morning Branch and 1 tablet in the evening. lactulose 2022-0 Yes [id number] 30mL Take 30 mL Univers 10 gram/15 8-23 by mouth ity o f mL solution 00:00: [place] morning. Medical Branch bumetanide 2022-0 Yes [id number] 2mg Take 1 U nivers 2 mg tablet 8-23 tablet by ity of 00:00: mouth in [place] the Medical morning Branch and 1 tablet in the evening. midodrine 5 2022-0 Yes [id number] 5mg Take 1 Univers mg tablet 8-23 tablet by ity o f 00:00: mouth in [place] the Medical morning Branch and 1 tablet at noon and 1 tablet in the evening. rosuvastati 2022-0 Yes [id number] 40mg Take 1 Univers n 40 mg 8-23 tablet by ity of tablet 00:00: mouth at [place] [address] bedtime. [facility] Branch spironolact 2022-0 Yes [id number] 50mg Take 1 Univers one 50 mg 8-23 tablet by ity o f tablet 00:00: mouth in [place] the Medical morning Branch and 1 tablet in the evening. lactulose 2022-0 Yes [id number] 30mL Take 30 mL Univers 10 gram/15 8-23 by mouth ity o f mL solution 00:00: in the morning. Medical Branch bumetanide 2022-0 Yes [id number] 2mg Take 1 U nivers 2 mg tablet 8-23 tablet by ity of 00:00: mouth in [place] the Medical morning Branch and 1 tablet in the evening. midodrine 5 2022-0 Yes [id number] 5mg Take 1 Univers mg tablet 8-23 tablet by ity o f 00:00: mouth in [place] the Medical morning Branch and 1 tablet at noon and 1 tablet in the evening. rosuvastati 2022-0 Yes [id number] 40mg Take 1 Univers n 40 mg 8-23 tablet by ity of tablet 00:00: mouth at [place] [address] bedtime. Medical Branch spironolact 2022-0 Yes [id number] 50mg Take 1 Univers one 50 mg 8-23 tablet by ity o f tablet 00:00: mouth in [place] the Medical morning Branch and 1 tablet in the evening. lactulose 2022-0 Yes [id number] 30mL Take 30 mL Univers 10 gram/15 8-23 by mouth ity o f mL solution 00:00: in the morning. Medical Branch bumetanide 2022-0 Yes [id number] 2mg Take 1 U nivers 2 mg tablet 8-23 tablet by ity of 00:00: mouth in [place] the Medical morning Branch and 1 tablet in the evening. midodrine 5 2022-0 Yes [id number] 5mg Take 1 Univers mg tablet 8-23 tablet by ity o f 00:00: mouth in [place] the Medical morning Branch and 1 tablet at noon and 1 tablet in the evening. rosuvastati 3-0 Yes [id number] 40mg Take 1 Univers n 40 mg 8-23 tablet by ity of tablet 00:00: mouth at [place] [address] bedtime. Medical Branch spironolact 3-0 Yes [id number] 50mg Take 1 Univers one 50 mg 8-23 tablet by ity o f tablet 00:00: mouth in [place] the Medical morning Branch and 1 tablet in the evening. lactulose 3-0 Yes [id number] 30mL Take 30 mL Univers 10 gram/15 8-23 by mouth ity o f mL solution 00:00: in the [facility] morning. Medical Branch bumetanide 2022-0 Yes [id number] 2mg Take 1 U nivers 2 mg tablet 8-23 tablet by ity of 00:00: mouth in [place] the Medical morning Branch and 1 tablet in the evening. midodrine 5 2022-0 Yes [id number] 5mg Take 1 Univers mg tablet 8-23 tablet by ity o f 00:00: mouth in [place] the Medical morning Branch and 1 tablet at noon and 1 tablet in the evening. rosuvastati 2022-0 Yes [id number] 40mg Take 1 Univers n 40 mg 8-23 tablet by ity of tablet 00:00: mouth at [place] [address] bedtime. Medical Branch spironolact 2022-0 Yes [id number] 50mg Take 1 Univers one 50 mg 8-23 tablet by ity o f tablet 00:00: mouth in [place] the Medical morning Branch and 1 tablet in the evening. lactulose 2022-0 Yes [id number] 30mL Take 30 mL Univers 10 gram/15 8-23 by mouth ity o f mL solution 00:00: in the morning. Medical Branch bumetanide 2022-0 Yes [id number] 2mg Take 1 U nivers 2 mg tablet 8-23 tablet by ity of 00:00: mouth in [place] the Medical morning Branch and 1 tablet in the evening. midodrine 5 2022-0 Yes [id number] 5mg Take 1 Univers mg tablet 8-23 tablet by ity o f 00:00: mouth in [place] [address] the Medical morning Branch and 1 tablet at noon and 1 tablet in the evening. rosuvastati 3-0 Yes [id number] 40mg Take 1 Univers n 40 mg 8-23 tablet by ity of tablet 00:00: mouth at [place] [address] bedtime. Medical Branch spironolact 2022-0 Yes [id number] 50mg Take 1 Univers one 50 mg 8-23 tablet by ity o f tablet 00:00: mouth in [place] [address] the Medical morning Branch and 1 tablet in the evening. lactulose 2022-0 Yes [id number] 30mL Take 30 mL Univers 10 gram/15 8-23 by mouth ity o f mL solution 00:00: in the morning. Medical Branch bumetanide 2022-0 Yes [id number] 2mg Take 1 U nivers 2 mg tablet 8-23 tablet by ity of 00:00: mouth in [place] the Medical morning Branch and 1 tablet in the evening. midodrine 5 2022-0 Yes [id number] 5mg Take 1 Univers mg tablet 8-23 tablet by ity o f 00:00: mouth in [place] the Medical morning Branch and 1 tablet at noon and 1 tablet in the evening. rosuvastati 2022-0 Yes [id number] 40mg Take 1 Univers n 40 mg 8-23 tablet by ity of tablet 00:00: mouth at [place] [address] bedtime. Medical Branch spironolact 2022-0 Yes [id number] 50mg Take 1 Univers one 50 mg 8-23 tablet by ity o f tablet 00:00: mouth in [place] the Medical morning Branch and 1 tablet in the evening. bumetanide 2022-0 Yes [id number] 2mg Take 1 U nivers 2 mg tablet 8-23 tablet by ity of 00:00: mouth in [place] the Medical morning Branch and 1 tablet in the evening. midodrine 5 2022-0 Yes [id number] 5mg Take 1 Univers mg tablet 8-23 tablet by ity o f 00:00: mouth in [place] the Medical morning Branch and 1 tablet at noon and 1 tablet in the evening. rosuvastati 2022-0 Yes [id number] 40mg Take 1 Univers n 40 mg 8-23 tablet by ity of tablet 00:00: mouth at [place] [address] bedtime. Medical Branch spironolact 2022-0 Yes [id number] 50mg Take 1 Univers one 50 mg 8-23 tablet by ity o f tablet 00:00: mouth in [place] the Medical morning Branch and 1 tablet in the evening. lactulose 2022-0 Yes [id number] 30mL Take 30 mL Univers 10 gram/15 8-23 by mouth ity o f mL solution 00:00: in the morning. Medical Branch bumetanide 3-0 Yes [id number] 2mg Take 1 U nivers 2 mg tablet 8-23 tablet by ity of 00:00: mouth in [place] the Medical morning Branch and 1 tablet in the evening. midodrine 5 2022-0 Yes [id number] 5mg Take 1 Univers mg tablet 8-23 tablet by ity o f 00:00: mouth in [place] 00 the Medical morning Branch and 1 tablet at noon and 1 tablet in the evening. rosuvastati 3-0 Yes [id number] 40mg Take 1 Univers n 40 mg 8-23 tablet by ity of tablet 00:00: mouth at [place] [address] bedtime. Medical Branch spironolact 2022-0 Yes [id number] 50mg Take 1 Univers one 50 mg 8-23 tablet by ity o f tablet 00:00: mouth in [place] 00 the Medical morning Branch and 1 tablet in the evening. lactulose 2022-0 Yes [id number] 30mL Take 30 mL Univers 10 gram/15 8-23 by mouth ity o f mL solution 00:00: in the morning. Medical Branch lactulose 2022-0 Yes [id number] 30mL Take 30 mL Univers 10 gram/15 8-23 by mouth ity o f mL solution 00:00: in the morning. Medical Branch bumetanide 2022-0 Yes [id number] 2mg Take 1 U nivers 2 mg tablet 8-23 tablet by ity of 00:00: mouth in [place] the Medical morning Branch and 1 tablet in the evening. midodrine 5 2022-0 Yes [id number] 5mg Take 1 Univers mg tablet 8-23 tablet by ity o f 00:00: mouth in [place] 00 the Medical morning Branch and 1 tablet at noon and 1 tablet in the evening. rosuvastati 2022-0 Yes [id number] 40mg Take 1 Univers n 40 mg 8-23 tablet by ity of tablet 00:00: mouth at [place] [address] bedtime. Medical Branch spironolact 2022-0 Yes [id number] 50mg Take 1 Univers one 50 mg 8-23 tablet by ity o f tablet 00:00: mouth in [place] 00 the Medical morning Branch and 1 tablet in the evening. lactulose 2022-0 Yes [id number] 30mL Take 30 mL Univers 10 gram/15 8-23 by mouth ity o f mL solution 00:00: in the morning. Medical Branch bumetanide 3-0 Yes [id number] 2mg Take 1 U nivers 2 mg tablet 8-23 tablet by ity of 00:00: mouth in [place] [address] the [facility] and 1 tablet in the evening. midodrine 5 2022-0 Yes [id number] 5mg Take 1 Univers mg tablet 8-23 tablet by ity o f 00:00: mouth in [place] [address] the [facility] and 1 tablet at noon and 1 tablet in the evening. rosuvastati 2022-0 Yes [id number] 40mg Take 1 Univers n 40 mg 8-23 tablet by ity of tablet 00:00: mouth at [place] [address] bedtime. [facility] spironolact 2022-0 Yes [id number] 50mg Take 1 Univers one 50 mg 8-23 tablet by ity o f tablet 00:00: mouth in [place] [address] the [facility] and 1 tablet in the evening. lactulose 2022-0 Yes [id number] 30mL Take 30 mL Univers 10 gram/15 8-23 by mouth ity o f mL solution 00:00: in the [facility] morning. [facility] bumetanide 2022-0 Yes [id number] 2mg Take 1 U nivers 2 mg tablet 8-23 tablet by ity of 00:00: mouth in [place] [address] the [facility] and 1 tablet in the evening. midodrine 5 2022-0 Yes [id number] 5mg Take 1 Univers mg tablet 8-23 tablet by ity o f 00:00: mouth in [place] [address] the [facility] and 1 tablet at noon and 1 tablet in the evening. spironolact 2022- No 25mg 25 mg, Uni vers one 03-26 Oral, ity of (ALDACTONE) 14:00: 15:07 DAILY, [place] tablet 25 00 :32 First dose Medi rob mg (after [place] last modificati on) on Sat03/26/23 at 0900, Until Discontinu ed, Routine iopamidol 2022- No ONCE INTRA U nivers (ISOVUE 03-25 PROCEDURE, ity o f 370-500 mL) 16:54: 17:06 Starting [place] injection 00 :26 on Sat03/25/23 at [place] 1154, Until Sat03/25/23 at 1206, Routine, CV Intraproce dure verapamiL 2022-0 2022- No ONCE INTRA U nivers (ISOPTIN) 03-25 PROCEDURE, ity of injection 16:36: 17:06 Starting [place] as 25 :26 on [facility] 03/25/23 at Branch 1136, Until 03/25/23 at 1206, Routine, CV Intraproce dure nitroglycer 2023-0 2022- No ONCE INTRA Univers in (TRIDIL) 03-25 PROCEDURE, i ty of 2 mg in 10 16:36: 17:06 [place] D5W for 14 :26 on [facility] Cardiac 03/25/23 at Branch Cath 1136, Until 03/25/23 at 1206, Routine, CV Intraproce dure heparin 2022-0 2022- No ONCE INTRA Uni vers 1,000 03-25 PROCEDURE, ity of unit/mL 16:35: 17:06 Starting [place] injection 59 :26 on [facility] 03/25/23 at Branch 1135, Until 03/25/23 at 1206, Routine, CV Intraproce dure lidocaine 2022-0 2022- No ONCE INTRA U nivers 1% (PF) 03-25 PROCEDURE, ity o f (XYLOCAINE) 16:29: 17:06 Starting [place] injection 34 :26 on [facility] 03/25/23 at Branch 1129, Until Sat03/25/23 at 1206, Routine, CV Intraproce dure lidocaine 2022-0 2022- No ONCE INTRA U nivers 1% (PF) 03-25 PROCEDURE, ity o f (XYLOCAINE) 16:09: 17:06 Starting [place] injection 17 :26 on [facility] 03/25/23 at Branch 1109, Until 03/25/23 at 1206, Routine, CV Intraproce dure midazolam 2022-0 2022- No ONCE INTRA U nivers (VERSED) 03-25 PROCEDURE, ity of injection 16:04: 17:06 Starting [place] 28 :26 on [facility] 03/25/23 at Branch 1104, Until Sat03/25/23 at 1206, Routine, CV Intraproce dure FENTanyl PF 3-0 2022- No ONCE INTRA Univers (SUBLIMAZE 03-25 PROCEDURE, it y of (PF)) 16:04: 17:06 Starting [place] injection 19 :26 on [facility] 03/25/23 at Branch 1104, Until [facility] 03/25/23 at 1206, Routine, CV Intraproce dure KCL 2022- No 20meq 20 mEq, Univers (KLOR-CON 03-25 Oral, ity of M20) tablet 13:15: 13:31 ONCE, 1 [place] 20 mEq 00 :00 dose, On [facility] 03/25/23 at 0815, Routine rosuvastati Yes 40mg 40 mg, Univ ers n (CRESTOR) 03-25 Oral, QHS, it y of tablet 40 02:00: First dose [place] mg 00 on [facility] 03/24/23 at Branch 2100, Until Discontinu ed, Routine rosuvastati Yes 40mg 40 mg, Univ ers n (CRESTOR) 03-25 Oral, QHS, it y of tablet 40 02:00: First dose [place] mg 00 on [facility] 03/24/23 at Branch 2100, Until Discontinu ed, Routine ampicillin 2022- Yes 2000mg 2,000 mg, Univers (POLYCILLIN 03-24 IV ity of -N) 2,000 17:45: 17:44 Piggyback, [place] mg in NaCl 00 :00 Q4H ABX, Medic al 0.9% (NS) 30 doses, Branc h 100 mL First dose MINI-BAG (after last modificati on) on [place] 03/24/23 at 1245, Last dose on Sat03/29/23 at 0845, Administer over 30 Minutes, 100 mL
Reas on for Anti-Infec tive: Documented Infection< br>Documen jean claude Infection Site: Blood
D uration of Therapy: 7 days ampicillin 2022- Yes 2000mg 2,000 mg, Univers (POLYCILLIN 03-24 IV ity of -N) 2,000 17:45: 17:44 Piggyback, [place] mg in NaCl 00 :00 Q4H ABX, Medic al 0.9% (NS) 30 doses, Branc h 100 mL First dose MINI-BAG (after last modificati on) on [place] 03/24/23 at 1245, Last dose on Sat03/29/23 at 0845, Administer over 30 Minutes, 100 mL
Reas on for Anti-Infec tive: Documented Infection< br>Documen jean claude Infection Site: Blood
D uration of Therapy: 7 days magnesium 2022- No 2g 2 g, IV Univ ers sulfate in 03-24 Piggyback, it y of water 2 15:15: 17:26 Administer [place] gram/50 mL 00 :00 over 60 Medica l (4 %) Minutes, Branch infusion 2 ONCE, 1 g dose, On 03/24/23 at 1015, Routine bumetanide 2022- No .5mg 0.5 mg, Uni vers (BUMEX) 03-24 Oral, BID, ity o f tablet 0.5 03:15: 15:07 First dose [place] mg 00 :32 on [facility] Medical 03/23/23 at Branch 2215, Until Discontinu ed, Routine iopamidol 2022- No [id number] 80mL 80 mL, U nivers (ISOVUE 03-23 Intravenou ity o f 300-500 mL) 15:10: 15:10 s, ONCE, 1 [place] injection 00 :00 dose, On Medica l 80 mL Sat Branch 03/23/23 at 1030, Routine HYDROcodone Yes 1{tbl} 1 tablet, Univers -acetaminop 03-23 Oral, ity of hen (NORCO 14:48: Q6HPRN, [place] 5) 5-325 mg 02 Starting Medi rob tablet 1 on Sat Branch tablet 03/23/23 at 0948, Until Discontinu ed, Routine, Pain (scale 4-6) HYDROcodone Yes 1{tbl} 1 tablet, Univers -acetaminop 03-23 Oral, ity of hen (NORCO 14:48: Q6HPRN, [place] 5) 5-325 mg 02 Starting Medi rob tablet 1 on Sat Branch tablet 03/23/23 at 0948, Until Discontinu ed, Routine, Pain (scale 4-6) KCL 2022- No 40meq 40 mEq, Univers (KLOR-CON 03-23 Oral, Q2H, ity of M20) tablet 01:00: 04:59 2 doses, [place] 40 mEq 00 :00 First dose Medical on Sat [place] 03/22/23 at 2000, Last dose on Sat03/22/23 at 2200, Routine aspirin 2022-0 Yes 81mg 81 mg, Univers chewable 03-22 Oral, ity of tablet 81 14:00: DAILY, [place] mg 00 First dose Medical on Sat [place] 03/22/23 at 0900, Until Discontinu ed, Routine aspirin Yes 81mg 81 mg, Univers chewable 03-22 Oral, ity of tablet 81 14:00: DAILY, [place] mg 00 First dose Medical on Sat [place] 03/22/23 at 0900, Until Discontinu ed, Routine clopidogreL 2022- No 75mg 75 mg, Uni vers (PLAVIX) 75 03-22 Oral, ity of mg tablet 14:00: 15:21 DAILY, [place] 75 mg 00 :03 First dose Medical on Sat [place] 03/22/23 at 0900, Until Discontinu ed, Routine magnesium 2022- No 2g 2 g, IV Univ ers sulfate in 03-22 Piggyback, it y of water 2 13:15: 14:25 Administer [place] as gram/50 mL 00 :00 over 60 Medica l (4 %) Minutes, Branch infusion 2 ONCE, 1 g dose, On Sat03/22/23 at 0815, Routine KCL No 40meq 40 mEq, Univers (KLOR-CON 03-22 Oral, Q2H, ity of M20) tablet 13:00: 18:31 2 doses, [place] 40 mEq 00 :00 First dose Medical on Sat [place] 03/22/23 at 0800, Last dose on Sat03/22/23 at 1000, Routine ampicillin 2022- No 2000mg 2,000 mg, Univers (POLYCILLIN 03-22 IV ity of -N) 2,000 01:33: 14:48 Piggyback, [place] mg in NaCl 16 :16 Q4H ABX, Medic al 0.9% (NS) 17 doses, Branc h 100 mL First dose MINI-BAG (after last modificati on) on [facility] 03/21/23 at 2045, Last dose on Sat03/24/23 at 1245, Administer over 30 Minutes, 100 mL
Reas on for Anti-Infec tive: Documented Infection< br>Documen jean claude Infection Site: Blood
D uration of Therapy: 7 days KCL No 40meq 40 mEq, Univers (KLOR-CON 03-22 Oral, ity of M20) tablet 00:00: 23:29 ONCE, 1 [place] 40 mEq 00 :00 dose, On Medical [place] Branch 03/21/23 at 1900, Routine potassium 2022- No 20meq 20 mEq, IV Univers chloride in 03-21 Piggyback, i ty of water (KCL) 23:30: 05:50 Q2H, 2 [place] as 20 mEq/100 00 :00 doses, Medical mL RTU IVPB First dose Br anch 20 mEq on [facility] 03/21/23 at 1830, Last dose on [facility] 03/21/23 at 2000, 100 mL NaCl 0.9% 0 Yes 10mL 10 mL, Univer s (NS) 03-21 Slow IV ity of injection 20:33: Push, PRN, [place] 10 mL 25 Starting Medical on [facility] Branch 03/21/23 at 1533, Until Discontinu ed, Routine, line maintenanc e lidocaine 0 Yes 5mL 5 mL, Univers 1% (PF) 03-21 Subcutaneo ity of (XYLOCAINE) 20:33: us, PRN, [place] injection 5 25 Starting Medi rob mL on [facility] Branch 03/21/23 at 1533, Until Discontinu ed, Routine, Local anesthesia NaCl 0.9% 0 Yes 10mL 10 mL, Univer s (NS) 03-21 Slow IV ity of injection 20:33: Push, PRN, [place] 10 mL 25 Starting Medical on [facility] Branch 03/21/23 at 1533, Until Discontinu ed, Routine, line maintenanc e lidocaine 0 Yes 5mL 5 mL, Univers 1% (PF) 03-21 Subcutaneo ity of (XYLOCAINE) 20:33: us, PRN, [place] injection 5 25 Starting Medi rob mL on [facility] Branch 03/21/23 at 1533, Until Discontinu ed, Routine, Local anesthesia HEPARIN 2022- No 4000U 4,000 Univers SODIUM 03-21 Units, IV ity of (PORCINE) 20:15: 21:53 Push, [place] 1,000 00 :00 ONCE, 1 Medical UNIT/ML dose, On Branch BOLUS ACS [place] ORDER SET 03/21/23 at 1515, IVANA aspirin 2022- No 162mg 162 mg, Unive rs chewable 03-21 Oral, ity of tablet 162 20:15: 21:24 ONCE, 1 [place] mg 00 :00 dose, On Medical [place] Branch 03/21/23 at 1515, IVANA heparin 2022- No 0U/h 0-1,600 Univer s 25,000 03-21 Units/hr ity of Units/250 20:00: 14:47 (0-16 [place] mL 12 :55 mL/hr), IV Medical (Premixed Infusion, Branc h Bag) in TITRATE, 0.45 % NS Parameters in Admin. Instr., Starting on [place] 03/21/23 at 1500
In itiate dosing:&nb sp; & nbsp;&nbsp ; -Patient 83 kg or under: 900 Units/hr (Calculate d dose at 12 units/kg/h r) &n bsp; &nbs p; -Patient over 83 k,000 units/hr&n bsp;DO NOT Exceed the MAXIMUM 1,000 units/hr for initiation of heparin drip.&nbsp ; CAU TION - If LMWH given in ER, AVOID bolus and start next dose/drip 12 hrs after ER dosage.&nb sp; M ust program rate using programmab le infusion pump.&nbsp ; Sharmila ck with the ordering provider first prior to any administra tion should the patient be on existing/a dditional anticoagul ant therapy.&n bsp; Range, Dosing and Testing&nb sp; - aPTT < 40: & nbsp;Bolus 3000 units, increase rate 100 units/hr.& nbsp;- aPTT 40-49:&nbs p; In crease rate 50 units/hr. - aPTT 50-70:&amp ;nbsp;&nbs p;NO CHANGE.&nb sp;- aPTT 71-85:&nbs p; De crease rate 50 units/hr.& amp;nbsp;- aPTT 86-100:&nb sp; H old 30 minutes, decrease rate 100 units/hr.& nbsp;- aPTT 101-150:&n bsp; Hold 60 minutes, decrease rate 150 units/hr.& nbsp;- aPTT > 150: Hold 60 minutes, decrease rate 300 units/hr.& nbsp;&nbsp ;Check aPTT 6 hours after initiation , then Q6H after every change, aPTT Q12H once therapeuti c levels are reached.&a mp;nbsp;&n bsp;DO NOT ADJUST INITIAL BOLUS OR INITIAL INFUSION RATE.
heparin 2022- No 3000U FOR Univers (1,000 03-21 REBOLUSING ity of unit/mL, 10 20:00: 14:47 , Starting [place] mL vial) 01 :55 on [facility] Medical for 03/21/23 at [place] Rebolusing 1500, Until 03/24/23 at 0947, Routine
Dosing based on aPPT testing parameters (refer to continuous heparin drip order).
lidocaine Yes PRN, Univers 1% (PF) 03-21 Starting ity of (XYLOCAINE) 19:28: [place] injection 10 03/21/[address] Until Discontinu ed, Routine, Intra-op lidocaine Yes PRN, Univers 1% (PF) 03-21 Starting ity of (XYLOCAINE) 19:28: on [place] injection 10 03/21/[address] Until Discontinu ed, Routine, Intra-op magnesium 2022- No 2g 2 g, IV Univ ers sulfate in 03-21 Piggyback, it y of water 2 18:30: 18:55 Administer Zac as gram/50 mL 00 :00 over 60 Medica l (4 %) Minutes, Branch infusion 2 ONCE, 1 g dose, On [place] 03/21/23 at 1330, Routine spironolact 2022- No 50mg 50 mg, Uni vers one 03-21 Oral, ity of (ALDACTONE) 18:15: 04:29 DAILY, Zac as tablet 50 00 :35 First dose Medi rob mg (after Branch last modificati on) on [place] 03/21/23 at 1315, Until Discontinu ed, Routine potassium 2022-2022- No 20meq 20 mEq, IV Univers chloride in 03-21 Infusion, it y of water (KCL) 17:45: 21:44 Q2H ES, 2 [place] 20 mEq/100 00 :00 doses, Medical mL RTU IVPB First dose Br anch 20 mEq on [place] 03/21/23 at 1245, Last dose on [facility] 03/21/23 at 1445, 100 mL KCL 2022-2022- No 40meq 40 mEq, Univers (KLOR-CON 03-21 Oral, ity of M20) tablet 16:00: 15:14 ONCE, 1 [place] 40 mEq 00 :00 dose, On Medical [place] Branch 03/21/23 at 1100, Routine magnesium 2022-2022- No 4g 4 g, IV Univ ers sulfate in 03-21 Piggyback, it y of water 4 14:45: 16:27 at 25 [place] gram/50 mL 00 :00 mL/hr Medical (8 %) IV Administer Branc h Piggyback 4 over 120 g Minutes, ONCE, 1 dose, On [facility] 03/21/23 at 0945, Routine potassium 2022-0 2022- No 20meq 20 mEq, IV Univers chloride in 03-21 Piggyback, i ty of water (KCL) 13:00: 16:59 Q2H, 2 [place] 20 mEq/100 00 :00 doses, Medical mL RTU IVPB First dose Br anch 20 mEq on [place] 03/21/23 at 0800, Last dose on [facility] 03/21/23 at 1000, 100 mL KCL 2022-0 2022- No 40meq 40 mEq, Univers (KLOR-CON 03-21 Oral, ity of M20) tablet 12:30: 14:20 ONCE, 1 [place] 40 mEq 00 :00 dose, On [facility] 03/21/23 at 0730, Routine ampicillin 2022- No 2000mg 2,000 mg, Univers (POLYCILLIN 03-21 IV ity of -N) 2,000 09:30: 22:45 Piggyback, [place] mg in NaCl 00 :50 Q6H ABX, Medic al 0.9% (NS) 20 doses, Branc h 100 mL First dose MINI-BAG on [facility] 03/21/23 at 0430, Last dose on [facility] 03/25/23 at 2230, Administer over 30 Minutes, 100 mL
Reas on for Anti-Infec tive: Documented Infection< br>Documen jean claude Infection Site: Blood
D uration of Therapy: 7 days cyclobenzap 2022- No 5mg 5 mg, Univ ers rine 03-21 Oral, ity of (FLEXERIL) 03:00: 01:56 ONCE, 1 [place] tablet 5 mg 00 :00 dose, On [facility] 03/20/23 at 2200, Routine morpHINE (2 2022- No 2mg 2 mg, Slow Univers mg/mL) 03-20 IV Push, ity of injection 2 15:45: 15:01 ONCE, 1 [place] mg 00 :00 dose, On [facility] 03/20/23 at 1045, Routine KCL 2022- No 40meq 40 mEq, Univers (KLOR-CON 03-20 Oral, ity of M20) tablet 14:45: 14:25 ONCE, 1 [place] 40 mEq 00 :00 dose, On [facility] 03/20/23 at 0945, Routine magnesium 2022- No 2g 2 g, IV Univ ers sulfate in 03-20 Piggyback, it y of water 2 14:45: 16:52 Administer [place] as gram/50 mL 00 :00 over 60 Medica l (4 %) Minutes, Branch infusion 2 ONCE, 1 g dose, On [facility] 03/20/23 at 0945, Routine metoprolol Yes 12.5mg 12.5 mg, U nivers succinate 03-20 Oral, ity of XL (TOPROL 14:00: DAILY, [place] XL) tablet 00 First dose Med ical 12.5 mg on Sat03/20/23 at 0900, Until Discontinu ed, Routine metoprolol Yes 12.5mg 12.5 mg, U nivers succinate 03-20 Oral, ity of XL (TOPROL 14:00: DAILY, [place] XL) tablet 00 First dose Med ical 12.5 mg on Sat03/20/23 at 0900, Until Discontinu ed, Routine vancomycin 2022- No 15mg/kg 1,250 mg Univers 1,250 mg in 03-20 (rounded ity of NaCl 0.9% 10:45: 14:25 from [place] () 250 mL 00 :00 1,327.5 mg Me dical VIAL-MATE = 15 mg/kg Bran ch IV ?88.5 kg), piggyback IV Piggyback, ONCE, 1 dose, On Sat03/20/23 at 0545, Administer over 90 Minutes, 250 mL
Reas on for Anti-Infec tive: Documented Infection& lt;br>Docu mented Infection Site: Blood
D uration of Therapy: 7 days midodrine 0 Yes 5mg 5 mg, Univers (PROAMATINE 8-15 Oral, TID, it y of ) tablet 5 19:00: First dose [place] mg 00 on [facility] 03/19/23 at Branch 1400, Until Discontinu ed, Routine midodrine 0 Yes 5mg 5 mg, Univers (PROAMATINE 8-15 Oral, TID, it y of ) tablet 5 19:00: First dose [place] mg 00 on [facility] 03/19/23 at Branch 1400, Until Discontinu ed, Routine heparin 2022- No 5000U 5,000 Univers (porcine) 03-19 08-17 Units, ity of injection 19:00: 20:00 Subcutaneo [place] 5,000 Units 00 :44 us, Q8H, Medi rob First dose Branch on 03/19/23 at 1400, Until Discontinu ed, Routine bumetanide 2022- No 2mg/h 2 mg/hr Un javier (BUMEX) 10 03-19 (10 ity of mg in D5W 16:15: 04:31 mL/hr), IV [place] 50 mL IV 00 :06 Infusion, Medica l infusion CONTINUOUS Branc h , Starting on Sat03/19/23 at 1115 chlorothiaz 2022- No 500mg 500 mg, IV Univers herlinda 03-1918 Piggyback, ity of (DIURIL) 15:15: 16:40 DAILY, [place] 500 mg in 00 :19 First dose Medi rob NaCl 0.9% on Sat (NS) 50 mL 03/19/23 at 1015, Until Discontinu ed, Administer over 15 Minutes, 50 mL
Facu lty member approving Restricted medication : MADAY HERNANDEZ metoprolol 2022- No 25mg 25 mg, Univ ers succinate 03-19 Oral, ity of XL (TOPROL 14:00: 20:09 DAILY, [place] XL) tablet 00 :15 First dose Med ical 25 mg on Sat Branch 03/19/23 at 0900, Until Discontinu ed, Routine spironolact 2022- No 50mg 50 mg, Uni vers one 03-19 Oral, ity of (ALDACTONE) 14:00: 15:18 DAILY, [place] tablet 50 00 : First dose Medi rob mg on Sat Branch 03/19/23 at 0900, Until Discontinu ed, Routine furosemide 2022- No 40mg 40 mg, Univ ers (LASIX) 03-19 Slow IV ity of injection 13:00: 15:12 Push, [place] 40 mg 00 :06 Q12H, Medical First dose Branch on Sat03/19/23 at 0800, Until Discontinu ed, Routine acetaminoph Yes 650mg 650 mg, Un javier en 03-19 Oral, ity of (TYLENOL) 11:51: Q6HPRN, [place] tablet 650 43 Starting Medic al mg on Sat Branch 03/19/23 at 0651, Until Discontinu ed, Routine, Pain (scale 1-3) acetaminoph Yes 650mg 650 mg, Un javier en 15 Oral, ity of (TYLENOL) 11:51: Q6HPRN, [place] tablet 650 43 Starting Medic al mg on Sat Branch 03/19/23 at 0651, Until Discontinu ed, Routine, Pain (scale 1-3) Lactulose Lactulose 2019-0 Yes 20 THREE TIME [place] (LACTULOSE (LACTULOSE 12-15 A lle 10 GM/15 ML 10 GM/15 ML 13:48: DAY(09;15; [facility] ORAL SOLN) ORAL SOLN) 00 21) l 10 GM/15 ML 10 GM/15 ML H ospita JUSTINO JUSTINO l Rifaximin Rifaximin Yes 550 EVERY [place] (Xifaxan) (Xifaxan) 13 TWELVE lle 550 MG TAB 550 MG TAB 13:48: HOURS [facility] 00 l Hospita l sodium Yes 650mg Q.5D Take [address] [facility] [address] bicarbonate 5-06 mg by [facility] 325 MG 14:36: mouth 2 Medical tablet 31 (two) Center times daily . potassium Yes 20meq QD Take [address] [facility] chloride 5-06 mEq by [facility] (KLOR-CON) 14:36: mouth Medica l 20 mEq 31 daily. [place] packet nadolol Yes 20mg QD Take [address] [facility] (CORGARD) 5-06 by mouth [facility] 20 MG 14:36: daily. Medical tablet 31 [place] ferrous Yes 134mg QD Take 134 [facility] sulfate 134 5-06 mg by [facility] mg (27 mg 14:36: mouth Medical iron) Tab 31 daily. [place] folic acid Yes 1mg QD Take [address] (FOLVITE) 1 5-06 by mouth Luke s MG tablet 14:36: daily. Medica l 31 [place] furosemide Yes 40mg QD Take [address] (LASIX) 40 5-06 by mouth [facility] MG tablet 14:36: daily. Medica l 31 [place] lactulose Yes 20g Q.23400691 Take [address] [facility] (CEPHULAC) 5-06 [id number] by mouth 3 [facility] 20 gram 14:36: 3D (three) Medical packet 31 times Center daily. multivitami Yes 1{tbl} QD Take [address] n per 5-06 tablet by [facility] tablet 14:36: mouth Medical 31 daily. Center omeprazole 2019-0 Yes 40mg Q.5D Take [address] (PRILOSEC) 5-06 by mouth 2 Gely es 40 MG 14:36: (two) Medical capsule 31 times Center daily. spironolact 2019-0 Yes 100mg Q.5D Take [address] one 5-06 mg by [facility] (ALDACTONE) 14:36: mouth 2 Med ical 100 MG 31 (two) Center tablet times daily. potassium 2019-0 Yes 20meq Q.5D Take 20 Meth dipti chloride 1-[address] (KLOR-CON) 17:26: mouth 2 Hosp faye 20 mEq 49 (two) l packet times a day. ondansetron 2018-0 Yes 4mg Q8H Take 4 [...] a 49 l lactulose 2019-0 Yes 20g Q.[id number] Take 20 g [facility] (CEPHULAC) 1-04 [id number] mouth [address] 20 gram 17:26: 3D (three) Hospita packet 49 times a l day. midodrine 2019-0 Yes 5mg Q.34494636 Take 5 mg [facility] (PROAMATINE 1-04 [id number] mouth [facility] ) 5 MG [...] 49 (two) l packet times a day. ondansetron Yes 4mg Q8H Take 4 mg M ethodi ODT 1-[address] (ZOFRAN-ODT 17:26: every 8 Hos jorge alberto ) 4 MG 49 (eight) l disintegrat hours as ing tablet needed for nausea or vomiting. ferrous 2018-0 Yes 325mg QD Take 325 Metho di sulfate 325 1-[address] (65 FE) MG 17:26: mouth Hospit a tablet 49 daily with l breakfast. folic acid 0 Yes 1mg QD Take 1 mg Me thodi (FOLVITE) 1 1-[address] MG tablet 17:26: daily. Hospit a 49 l lactulose Yes 20g Q.26999917 Take 20 g [facility] (CEPHULAC) 1-04 [id number] mouth [address] 20 gram 17:26: 3D (three) Hospita packet 49 times a l day. midodrine 0 Yes 5mg Q.73398527 Take 5 mg [facility] (PROAMATINE 1-04 [id number] mouth [address] [facility] ) 5 MG 17:26: 3D (three) Hospita tablet 49 times a l day. nadolol Yes 20mg QD Take 20 mg Meth dipti (CORGARD) 1-[address] 20 MG 17:26: daily. Hospita tablet 49 l omeprazole Yes 40mg QD Take 40 mg M ethodi (PriLOSEC) 1-[address] 40 MG 17:26: daily. Hospita capsule 49 l rifAXIMin 2017-08 Yes 550mg Q.5D Take 1 [facility] 550 mg Tab 0-23 tablet [facility] 00:00: (550 mg Medical 00 total) by Center mouth 2 (two) times daily. ondansetron Yes TK [address] [facility] (ZOFRAN) 4 4-03 Q 8 H PRN Luke s MG tablet 00:00: Medical 00 Center midodrine 2017-[address] [facility] (PROAMATINE 3-20 DAILY [facility] ) 5 MG 00:00: Medical tablet 00 Center HYDROXYZINE HYDROXYZINE Yes 25 THREE TIME [place] [...] jorge alberto MG TAB MG TAB l Immunizations Ordered Filled Date Status Comments Source Immunization Name Immunization Name [facility] 2023-03-19 Completed [facility] 00:00:00 [facility] HBIG 2023-03-19 Completed [facility] 00:00:00 [facility] HBIG 2023-03-19 Completed [place] of 00:00:00 [facility] HBIG 2023-03-19 Completed University of 00:00:00 [facility] HBIG 2023-03-19 Completed [facility] of 00:00:00 [facility] HBIG 2023-03-19 Completed [facility] of 00:00:00 [facility] HBIG 2023-03-19 Completed [facility] of 00:00:00 [facility] HBIG 2023-03-19 Completed [place] of 00:00:00 [facility] HBIG Unknown Completed [facility] HBIG Unknown Completed [facility] HBIG Unknown Completed [facility] HBIG Unknown Completed [facility] Vital Signs Vital Name Observation Time Observation Value Comments Source Systolic blood 2023-03-28 104 mm[Hg] [facility] pressure 16:57:00 [facility] Diastolic blood 2023-03-28 68 mm[Hg] [place] o f pressure 16:57:00 [facility] Heart rate 2023-03-28 92 /min [facility] 16:57:00 [facility] Body temperature 2023-03-28 36.22 Erica [facility] 16:57:00 [facility] Respiratory rate 2023-03-28 20 /min [facility] 16:57:00 [facility] Oxygen saturation 2023-03-28 96 /min [facility] in Arterial blood 16:57:00 [facility] by Pulse oximetry [place] Body weight 2023-03-28 73.165 kg [facility] 01:37:00 [facility] BMI 2023-03-28 26.03 kg/m2 [facility] 01:37:00 [facility] Body height 2023-03-19 167.6 cm [facility] 11:23:00 [facility] Systolic blood 2023-03-25 111 mm[Hg] University of pressure 17:30:00 [facility] Diastolic blood 2023-03-25 59 mm[Hg] University o f pressure 17:30:00 [facility] Heart rate 2023-03-25 79 /min [facility] 17:30:00 [facility] Body temperature 2023-03-25 36.28 Erica [facility] 17:23:00 [facility] Respiratory rate 2023-03-25 20 /min [facility] 17:23:00 [facility] Oxygen saturation 2023-03-25 97 /min [facility] in Arterial blood 17:23:00 [facility] by Pulse oximetry [place] Body weight 2023-03-21 75.342 kg standing scale [facility] 10:52:00 [facility] BMI 2023-03-21 27.50 kg/m2 [facility] 10:52:00 [facility] Body height 2023-03-19 167.6 cm [facility] 11:23:00 [facility] Heart Rate 2020-01-02 80 /min [place] 09:00:00 [facility] BP Systolic 2020-01-02 110 mm[Hg] [place] 07:51:00 [facility] BP Diastolic 2020-01-02 62 mm[Hg] [place] 07:51:00 [facility] Body Temperature 2020-01-02 96.9 [degF] [place] 07:51:00 [facility] Respiratory rate 2020-01-02 16 /min [place] 07:51:00 [facility] Oxygen saturation 2020-01-02 96 /min [place] by Pulse oximetry 07:51:00 [facility] Height 2020-01-02 66 [in_i] [place] 06:00:00 [facility] Weight 2020-01-02 58.712 kg [place] 06:00:00 [facility] BMI (Body Mass 2020-01-02 20.9 kg/m2 [place] Index) 06:00:00 [facility] BP Systolic 2019-12-16 109 mm[Hg] [place] 13:56:00 [facility] BP Diastolic 2019-12-16 66 mm[Hg] [place] 13:56:00 [facility] Body Temperature 2019-12-16 98.5 [degF] [place] 13:56:00 [facility] Respiratory rate 2019-12-16 18 /min [place] 13:56:00 [facility] Heart Rate 2019-12-16 111 /min [place] 13:56:00 [facility] Oxygen saturation 2019-12-16 95 /min [place] by Pulse oximetry 13:56:00 [facility] Height 2019-12-16 68 [in_i] [place] 06:00:00 [facility] Weight 2019-12-16 51.029 kg [place] 06:00:00 [facility] BMI (Body Mass 2019-12-16 17.1 kg/m2 [place] Index) 06:00:00 [facility] Respiratory rate 2019-04-16 18 /min [place] 13:37:00 [facility] Procedures Procedure Date / Time Performing Clinician Source Performed EXTERNAL PROVIDER RECORDS 2023-04-04 05:01:00 Doctor Unassigned, [facility] Melvina [facility] POCT GLUCOSE (AUTOMATED) 2023-03-28 16:58:00 Matty Welch [facility] MAGNESIUM 2023-03-28 15:49:00 Tricia Arrington [facility] BASIC METABOLIC PANEL (NA, 2023-03-28 15:49:00 Tricia Arrington [facility] K, CL, CO2, GLUCOSE, BUN, [facility] CREATININE, CA) N-TERMINAL PRO-BNP 2023-03-28 15:49:00 Tricia Arrington [facility] POCT GLUCOSE (AUTOMATED) 2023-03-28 13:16:00 Matty Welch [facility] CBC WITH DIFF 2023-03-28 12:49:00 Cherise Costa [facility] PROTHROMBIN TIME / INR 2023-03-28 12:49:00 Cherise Costa [facility] POCT GLUCOSE (AUTOMATED) 2023-03-28 01:40:00 KenJasetam Jo U [facility] PROTHROMBIN TIME / INR 2023-03-28 00:24:00 Kade Brunson [facility] CBC WITH DIFF 2023-03-27 23:44:00 [facility] ALPHA FETOPROTEIN 2023-03-27 21:26[facility] 2023-03-27 21:26:00 [facility] ANTIBODY [facility] HEPATITIS B SURFACE 2023-03-27 21:26[facility] HCV ANTIBODY 2023-03-27 21:26[facility] AMMON[facility], [facility]ASMA 2023-03-27 16:48:00 Cherise Costa [facility] BILI UNCONJUGATED/BILI 2023-03-27 09:58:[address] [facility] COMP. METABOLIC PANEL 2023-03-27 09:58:00 Cherise Costa [facility] ([id number]) [facility] CBC WITH DIFF 2023-03-27 09:58:00 Cherise Costa [facility] N-TERMINAL PRO-BNP 2023-03-27 09:58:00 Cherise Costa [facility] TRANSTHORACIC ECHO (TTE) 2023-03-26 16:30:25 Cherise Costa [facility] TRANSTHORACIC ECHO (TTE) 2023-03-26 16:30:25 Cherise Costa [facility] HB ECG ROUTINE & RHYTHM 2023-03-26 13:38:05 Bianka Marroquin [facility] MAGNESIUM 2023-03-26 09:12:00 Cherise Costa [facility] HEPATIC FUNCTION PANEL 2023-03-26 09:12:00 Tim Sanchez [facility] ([id number]) (ALB,T.PRO,BILI [facility] T,BU/BC,ALT,AST,ALK PHOS) BASIC METABOLIC PANEL (NA, 2023-03-26 09:12:00 Cherise Costa [facility] K, CL, CO2, GLUCOSE, BUN, [facility] CREATININE, CA) CBC WITH DIFF 2023-03-26 09:12:00 Cherise Costa [facility] MAGNESIUM 2023-03-26 09:12:00 Cherise Costa [facility] HEPATIC FUNCTION PANEL 2023-03-26 09:12:00 [facility] ([id number] ([facility] T,BU/BC,ALT,AST,ALK PHOS) BASIC METABOLIC PANEL (NA, 2023-03-26 09:12:00 Cherise Costa [facility] K, CL, CO2, GLUCOSE, BUN, [facility] CREATININE, CA) CBC WITH DIFF 2023-03-26 09:12:00 Cherise Costa [facility] ACTIVATED PARTIAL THRMPLAS 2023-03-25 17:55:00 Cherise Costa [facility] ACTIVATED PARTIAL THRMPLAS 2023-03-25 17:55:00 Cherise Costa [facility] CARDIAC CATHETERIZATION 2023-03-25 16:46:55 David [facility] CARDIAC CATHETERIZATION 2023-03-25 16:46:55 David [facility] CARDIAC CATHETERIZATION 2023-03-25 16:46:55 David [facility] CARDIAC CATHETERIZATION 2023-03-25 16:46:55 David [facility] CARDIAC CATHETERIZATION 2023-03-25 16:46:55 David [facility] CARDIAC CATHETERIZATION 2023-03-25 16:46:55 David [facility] CATH PROCEDURE LOG 2023-03-25 16:08:34 David [facility] CATH PROCEDURE LOG 2023-03-25 16:08:34 Maday Hernandez [facility] HB ECG ROUTINE & RHYTHM 2023-03-25 12:43:31 Bianka Marroquin [facility] MAGNESIUM 2023-03-25 10:30:00 Cal[place]oun, [facility] C-REACTIVE PROTEIN 2023-03-25 10:30:00 [facility] HEPATIC FUNCTION PANEL 2023-03-25 10:30:00 [facility] ([id number]) (ALB,T.PRO,BILI [facility] T,BU/BC,ALT,AST,ALK PHOS) BASIC METABOLIC PANEL (NA, 2023-03-25 10:30:00 Cal[place], [facility] K, CL, CO2, GLUCOSE, BUN, [facility] CREATININE, CA) SEDIMENTATION RATE 2023-03-25 10:30:00 [facility] CBC WITH DIFF 2023-03-25 10:30:00 Cal[place], [facility] MAGNESIUM 2023-03-25 10:30:00 [place], [facility] C-REACTIVE PROTEIN 2023-03-25 10:30:00 [facility] HEPATIC FUNCTION PANEL 2023-03-25 10:30:00 [facility] ([id number]) (ALB,T.PRO,[facility] T,BU/BC,ALT,AST,ALK PHOS) BASIC METABOLIC PANEL (NA, 2023-03-25 10:30:00 Calhoun, [facility] K, CL, CO2, GLUCOSE, BUN, [facility] CREATININE, CA) SEDIMENTATION RATE 2023-03-25 10:30:00 [facility] CBC WITH DIFF 2023-03-25 10:30:00 [place], [facility] HB ECG ROUTINE & RHYTHM 2023-03-24 13:05:20 Bianka Marroquin [facility] HB ECG ROUTINE & RHYTHM 2023-03-24 13:05:20 Erik Jansen [facility] MAGNESIUM 2023-03-24 09:54:00 Erik Jansen [facility] HEPATIC FUNCTION PANEL 2023-03-24 09:54:00 Tim Sanchez [facility] ([id number]) (ALB,T.PRO,BILI [facility] T,BU/BC,ALT,AST,ALK PHOS) BASIC METABOLIC PANEL (NA, 2023-03-24 09:54:00 Karli Marroquin [facility] K, CL, CO2, GLUCOSE, BUN, [facility] CREATININE, CA) CBC WITH DIFF 2023-03-24 09:54:00 Erik Jansen [facility] MAGNESIUM 2023-03-24 09:54:00 Erik Jansen [facility] HEPATIC FUNCTION PANEL 2023-03-24 09:54:00 Laura Tim [facility] ([id number]) (ALB,T.PRO,[facility] T,BU/BC,ALT,AST,ALK PHOS) BASIC METABOLIC PANEL (NA, 2023-03-24 09:54:00 Karli Marroquin [facility] K, CL, CO2, GLUCOSE, BUN, [facility] CREATININE, CA) CBC WITH DIFF 2023-03-24 09:54:00 [facility] CBC WITHOUT DIFF 2023-03-23 23:25:00 Bianka Marroquin [facility] CBC WITHOUT DIFF 2023-03-23 23:25:00 Bianka Marroquin [facility] CBC WITHOUT DIFF 2023-03-23 19:09:00 Calhoun, Yamilet [facility] CBC WITHOUT DIFF 2023-03-23 19:09:00 Calhoun, Yamilet [facility] CT ABDOMEN PELVIS W 2023-03-23 15:18:24 [place] PELVIS W 2023-03-23 15:18:24 [facility] ECG ROUTINE & RHYTHM 2023-03-23 13:10:37 Erik Jansen [facility] HB ECG ROUTINE & RHYTHM 2023-03-23 13:10:37 Erik Jansen [facility] HEPATIC FUNCTION PANEL 2023-03-23 09:26:00 [facility] ([id number]) (ALB,T.PRO,BILI [facility] T,BU/BC,ALT,AST,ALK PHOS) BASIC METABOLIC PANEL (NA, 2023-03-23 09:26:00 Calh[place], [facility] K, CL, CO2, GLUCOSE, BUN, [facility] CREATININE, CA) CBC WITHOUT DIFF 2023-03-23 09:26:00 Tricia Arrington [facility] ACTIVATED PARTIAL THRMPLAS 2023-03-23 09:26:00 Tricia Arrington [facility] HEPATIC FUNCTION PANEL 2023-03-23 09:26:00 [facility] ([id number]) (ALB,[facility].PRO,[facility] T,BU/BC,ALT,AST,ALK PHOS) BASIC METABOLIC PANEL (NA, 2023-03-23 09:26:00 Calhoun, Yamilet Martins [facility] K, CL, CO2, GLUCOSE, BUN, [facility] CREATININE, CA) CBC WITHOUT DIFF 2023-03-23 09:26:00 Tricia Arrington [facility] ACTIVATED PARTIAL THRMPLAS 2023-03-23 09:26:00 Tricia Arrington [facility] ACTIVATED PARTIAL THRMPLAS 2023-03-23 04:06:00 Tricia Arrington [facility] ACTIVATED PARTIAL THRMPLAS 2023-03-23 04:06:00 Tricia Arrington [facility] BASIC METABOLIC PANEL (NA, 2023-03-22 18:38:00 Calhoun, Yamilet There se [facility] K, CL, CO2, GLUCOSE, BUN, [facility] CREATININE, CA) BASIC METABOLIC PANEL (NA, 2023-03-22 18:38:00 Calhoun, Yamilet There se [facility] K, CL, CO2, GLUCOSE, BUN, [facility] CREATININE, CA) BLOOD CULTURE SCREEN 2023-03-22 16:55:00 Maday Hernandez [facility] ACTIVATED PARTIAL THRMPLAS 2023-03-22 16:55:00 Tricia Arrington [facility] BLOOD CULTURE SCREEN 2023-03-22 16:55:00 [facility] PART[facility] THRMPLAS 2023-03-22 16:55:00 Tricia Arrington U [facility] HB ECG ROUTINE & RHYTHM 2023-03-22 13:37:33 Erik Jansen [facility] HB ECG ROUTINE & RHYTHM 2023-03-22 13:37:33 Erik Jansen [facility] MAGNESIUM 2023-03-22 10:45:00 Bianka Marroquin [facility] [place] HEPATIC FUNCTION PANEL 2023-03-22 10:45:00 [facility] ([id number]) (ALB,T.PRO,BILI [facility] T,BU/BC,ALT,AST,ALK PHOS) BASIC METABOLIC PANEL (NA, 2023-03-22 10:45:00 Karli Marroquin [facility] K, CL, CO2, GLUCOSE, BUN, [facility] CREATININE, CA) CBC WITH DIFF 2023-03-22 10:45:00 Bianka Marroquin [facility] [place] ACTIVATED PARTIAL THRMPLAS 2023-03-22 10:45:00 Tricia Arrington [facility] MAGNESIUM 2023-03-22 10:45:00 Erik Jansen [facility] HEPATIC FUNCTION PANEL 2023-03-22 10:45:00 Tim Sanchez [facility] ([id number]) (ALB,T.PRO,BILI [facility] T,BU/BC,ALT,AST,ALK PHOS) BASIC METABOLIC PANEL (NA, 2023-03-22 10:45:00 Erik Jansen [facility] K, CL, CO2, GLUCOSE, BUN, [facility] CREATININE, CA) CBC WITH DIFF 2023-03-22 10:45:00 Erik Jansen [facility] ACTIVATED PARTIAL THRMPLAS 2023-03-22 10:45:00 Tricia Arrington [facility] ACTIVATED PARTIAL THRMPLAS 2023-03-22 04:11:00 Tricia Arrington [facility] ACTIVATED PARTIAL THRMPLAS 2023-03-22 04:11:00 Tricia Arrington [facility] TROPONIN I 2023-03-21 21:16:00 Erik Jansen [facility] BASIC METABOLIC PANEL (NA, 2023-03-21 21:16:00 Erik Jansen [facility] K, CL, CO2, GLUCOSE, BUN, [facility] CREATININE, CA) PROTHROMBIN TIME / INR 2023-03-21 21:16:00 [facility] ACTIVATED PARTIAL THRMPLAS 2023-03-21 21:16:00 Tricia Arrington [facility] TROPONIN I 2023-03-21 21:16:00 Erik Jansen [facility] BASIC METABOLIC PANEL (NA, 2023-03-21 21:16:00 Erik Jansen [facility] K, CL, CO2, GLUCOSE, BUN, [facility] CREATININE, CA) PROTHROMBIN TIME / INR 2023-03-21 21:16:00 [facility] ACTIVATED PARTIAL THRMPLAS 2023-03-21 21:16:00 Tricia Arrington U [facility] XR CHEST 1 VW 2023-03-21 21:13:00 Bharathi Peters [facility] XR CHEST 1 VW 2023-03-21 21:13:00 Bharathi Peters [facility] T.PROTEIN BODY FLUID 2023-03-21 20:15:00 David [facility] BODY FLUID 2023-03-21 20:15:00 David [facility] CULTURE(AEROBIC/ANAEROBIC) [facility] TOTAL BODY FLUID 2023-03-21 20:15:00 David [facility] T.PROTEIN BODY FLUID 2023-03-21 20:15:00 David [facility] BODY FLUID 2023-03-21 20:15:00 David [facility] CULTURE(AEROBIC/ANAEROBIC) Medic [facility] LDH TOTAL BODY FLUID 2023-03-21 20:15:00 David [facility] IR THORACENTESIS WITH 2023-03-21 19:50:00 CalhounYamilet Shelli [facility] IR THORACENTESIS WITH 2023-03-21 19:50:00 CalhounYamilet Shelli [facility] MAGNESIUM 2023-03-21 17:02:00 [facility] BASIC METABOLIC PANEL (NA, 2023-03-21 17:02:00 Karli Marroquin [facility] K, CL, CO2, GLUCOSE, BUN, [facility] CREATININE, CA) MAGNESIUM 2023-03-21 17:02:00 [facility] BASIC METABOLIC PANEL (NA, 2023-03-21 17:02:00 Karli Marroquin [facility] K, CL, CO2, GLUCOSE, BUN, [facility] CREATININE, CA) HB ECG ROUTINE & RHYTHM 2023-03-21 13:18:38 [facility] & [facility]HYTHM 2023-03-21 13:18:38 [facility] POCT GLUCOSE (AUTOMATED) 2023-03-21 12:56:00 Ste[facility]ck[facility] PO[facility] GLUCOSE (AUTOMATED) 2023-03-21 12:56:00 Stefany [facility]ckay [facility] MAGNESIUM 2023-03-21 09:52:00 Erik Jansen [facility] HEPATIC FUNCTION PANEL 2023-03-21 09:52:00 [facility] ([id number] (ALB,T.PRO,[facility] T,BU/BC,ALT,AST,ALK PHOS) BASIC METABOLIC PANEL (NA, 2023-03-21 09:52:00 Karli Marroquin [facility] K, CL, CO2, GLUCOSE, BUN, [facility] CREATININE, CA) CBC WITH DIFF 2023-03-21 09:52:00 Erik Jansen [facility] MAGNESIUM 2023-03-21 09:52:00 [facility] HEPATIC FUNCTION PANEL 2023-03-21 09:52:00 iTm Sanchez [facility] ([id number]) (ALB,T.PRO,[facility] T,BU/BC,ALT,AST,ALK PHOS) BASIC METABOLIC PANEL (NA, 2023-03-21 09:52:00 Karli Marroquin [facility] K, CL, CO2, GLUCOSE, BUN, [facility] CREATININE, CA) CBC WITH DIFF 2023-03-21 09:52:00 [facility] ROUTINE & RHYTHM 2023-03-20 18:53:41 [facility] & RHYTHM 2023-03-20 18:53:41 Erik Jansen [facility] TROPONIN I 2023-03-20 16:17:00 Erik Jansen [facility] PROTHROMBIN TIME / INR 2023-03-20 16:17:00 CalhounYamilet U [facility] TROPONIN I 2023-03-20 16:17:00 Erik Jansen [facility] PROTHROMBIN TIME / INR 2023-03-20 16:17:00 CalhounYamilet U [facility] TRANSTHORACIC ECHO (TTE) 2023-03-20 12:40:20 Erik Jansen [facility] TRANSTHORACIC ECHO (TTE) 2023-03-20 12:40:20 Erik Jansen [facility] HB ECG ROUTINE & RHYTHM 2023-03-20 12:39:41 Erik Jansen [facility] HB ECG ROUTINE & RHYTHM 2023-03-20 12:39:41 Erik Jansen [facility] BLOOD CULTURE SCREEN 2023-03-20 11:30:00 Raul Davis [facility] BLOOD CULTURE WORKUP 2023-03-20 11:30:00 Susan [facility] GRAM POSITIVE BLOOD 2023-03-20 11:30:00 Susan [facility] PATHOGENS DNA Medical [facility] PROBE-ANAEROBIC BLOOD CULTURE SCREEN 2023-03-20 11:30:00 Raul Davis [facility] BLOOD CULTURE WORKUP 2023-03-20 11:30:00 Raul Davis [facility] GRAM POSITIVE BLOOD 2023-03-20 11:30:00 Susan [facility] PATHOGENS DNA [facility] PROBE-ANAEROBIC MAGNESIUM 2023-03-20 11:29:00 Erik Jansen [facility] TROPONIN I 2023-03-20 11:29:00 Erik Jansen [facility] BASIC METABOLIC PANEL (NA, 2023-03-20 11:29:00 Karli Marroquin [facility] K, CL, CO2, GLUCOSE, BUN, [facility] CREATININE, CA) HIV 1/2 AG-AB WITH REFLEX 2023-03-20 11:29:00 Odilia [facility] MAGNESIUM 2023-03-20 11:29:00 Erik Jansen [facility] TROPONIN I 2023-03-20 11:29:00 Erik Jansen [facility] BASIC METABOLIC PANEL (NA, 2023-03-20 11:29:00 Karli Marroquin [facility] K, CL, CO2, GLUCOSE, BUN, [facility] CREATININE, CA) HIV 1/2 AG-AB WITH REFLEX 2023-03-20 11:29:00 Odilia Lao Un [facility] CBC WITH DIFF 2023-03-20 11:28:00 Erik Jansen [facility] CBC WITH DIFF 2023-03-20 11:28:00 Erik Jansen [facility] CT ABDOMEN PELVIS WO 2023-03-19 21:51:07 [facility] 2023-03-19 21:51:07 Maday Hernandez [facility] TROPONIN I 2023-03-19 20:41:00 Erik Jansen [facility] URINE CULTURE 2023-03-19 20:41:00 Erik Jansen [facility] TROPONIN I 2023-03-19 20:41:00 Erik Jansen [facility] URINE CULTURE 2023-03-19 20:41:00 Erik Jansen [facility] URINE DRUG (IMMUNOASSAY) - 2023-03-19 19:05:00 Karli Marroquin [facility] COMPREHENSIVE DRUG SCREEN [facility] URINALYSIS 2023-03-19 19:05:00 Bianka Marroquin [facility] [place] GALV ONLY - URINE DRUG 2023-03-19 19:05:00 Bianka Marroquin [facility] (MSMS) - LAURA PANEL [facility] GALV ONLY - URINE DRUG 2023-03-19 19:05:00 Bianka [facility] [place] (LCMSMS) - MDMA PANEL [facility] URINE DRUG (LCMSMS) - 2023-03-19 19:05:00 Bianka Marroquin [facility] [place] SYNTHETIC OPIATES PANEL [facility] URINE DRUG (IMMUNOASSAY) - 2023-03-19 19:05:00 Karli Marroquin [facility] COMPREHENSIVE DRUG SCREEN [facility] URINALYSIS 2023-03-19 19:05:00 Bianka Marroquin [facility] [place] GALV ONLY - URINE DRUG 2023-03-19 19:05:00 Bianka Marroquin niversity [facility] (LCMSMS) - LAURA PANEL [facility] anch GALV ONLY - URINE DRUG 2023-03-19 19:05:00 Bianka Marroquin U [facility] (LCMSMS) - MDMA PANEL [facility] URINE DRUG (LCMSMS) - 2023-03-19 19:05:00 Bianka Marroquin [facility] [place] SYNTHETIC OPIATES PANEL [facility] CT THORAX WO CONTRAST 2023-03-19 18:27:23 Maday Hernandez [facility] CT THORAX WO CONTRAST 2023-03-19 18:27:23 Maday Hernandez [facility] BLOOD CULTURE SCREEN 2023-03-19 17:26:00 Maday Hernandez [facility] BLOOD CULTURE WORKUP 2023-03-19 17:26:00 Maday Hernandez [facility] BLOOD CULTURE WORKUP 2023-03-19 17:26:00 Maday Hernandez [facility] GRAM POSITIVE BLOOD 2023-03-19 17:26:00 [facility] PROBE-ANAEROBIC BLOOD CULTURE SCREEN 2023-03-19 17:26:00 HernandezMaday [facility] BLOOD CULTURE WORKUP 2023-03-19 17:26:00 David [facility] BLOOD CULTURE WORKUP 2023-03-19 17:26:00 David Maday [facility] GRAM POSITIVE BLOOD 2023-03-19 17:26:00 David [facility] PATHOGENS DNA [facility] PROBE-ANAEROBIC SERUM DRUG (IMMUNOASSAY) - 2023-03-19 16:51:00 Maday Hernandez [facility] COMPREHENSIVE DRUG SCREEN [facility] LACT[facility] ACID WHOLE BLOOD 2023-03-19 16:51:00 Bianka Marroquin [facility] SERUM DRUG (IMMUNOASSAY) - 2023-03-19 16:51:00 Maday Hernandez [facility] COMPREHENSIVE DRUG SCREEN Medica l [facility]anna LACTIC ACID WHOLE BLOOD 2023-03-19 16:51:00 Bianka Marroquin [facility] XR CHEST 1 VW 2023-03-19 14:11:00 Bianka Marroquin [facility] [place] XR CHEST 1 VW 2023-03-19 14:11:00 Bianka Marroquin [facility] [place] ACUTE CARE ARTERIAL BLOOD 2023-03-19 13:54:00 Stewart Marroquin [facility] ACUTE CARE ARTERIAL BLOOD 2023-03-19 13:54:00 Stewart Marroquin [facility] HB ECG ROUTINE & RHYTHM 2023-03-19 13:49:22 Bianka Marroquin [facility] HB ECG ROUTINE & RHYTHM 2023-03-19 13:49:22 Bianka Marroquin [facility] RHEUMATOID FACTOR 2023-03-19 13:31:00 Mariel Saenz [facility] COMP. METABOLIC PANEL 2023-03-19 13:31:00 Bianka Marroquin [facility] ([id number]) [facility] TOTAL BETA HCG ASSAY 2023-03-19 13:31:00 Bianka Marroquin [facility] ETHANOL 2023-03-19 13:31:00 David [facility] HEPATITIS C VIRUS (HCV) BY 2023-03-19 13:31:00 Karli Marroquin [facility] QUANTITATIVE NAAT [facility] RHEUMATOID FACTOR 2023-03-19 13:31:00 Mariel Saenz [facility] COMP. METABOLIC PANEL 2023-03-19 13:31:00 Bianka Marroquin [facility] ([id number]) [facility] TOTAL BETA HCG ASSAY 2023-03-19 13:31:00 Bianka Marroquin [facility] ETHANOL 2023-03-19 13:31:00 David [facility] HEPATITIS C VIRUS (HCV) BY 2023-03-19 13:31:00 Karli aMrroquin [facility] QUANTITATIVE NAAT [facility] LACTIC ACID WHOLE BLOOD 2023-03-19 13:12:00 Bianka Marroquin [facility] LACTIC ACID WHOLE BLOOD 2023-03-19 13:12:00 Bianka Marroquin [facility] PHOSPHORUS 2023-03-19 13:10:00 Bianka Marroquin [facility] [place] MAGNESIUM 2023-03-19 13:10:00 Bianka Marroquin [facility] [place] FERRITIN SERUM 2023-03-19 13:10:00 Bianka Marroquin [facility] [place] [facility] THYROID STIMULATING 2023-03-19 13:10:00 Bianka Marroquin [facility]ORMONE [facility] BASIC METABOLIC PANEL (NA, 2023-03-19 13:10:00 Karli Marroquin [facility] K, CL, CO2, GLUCOSE, BUN, [facility] CREATININE, CA) IRON PANEL 2023-03-19 13:10:00 Bianka Marroquin [facility] [place], [facility] CBC WITH DIFF 2023-03-19 13:10:00 [facility] 2023-03-19 13:10[facility]00 [facility] MAGNESIUM 2023-03-19 13:10:00 Erik Jansen [facility] FERRITIN SERUM 2023-03-19 13:10:00 Erik Jansen [facility] THYROID STIMULATING 2023-03-19 13:10:00 Bianka Marroquin [facility] BASIC METABOLIC PANEL (NA, 2023-03-19 13:10:00 Karli Marroquin [facility] K, CL, CO2, GLUCOSE, BUN, [facility] CREATININE, CA) IRON PANEL 2023-03-19 13:10:00 [facility] CBC WITH DIFF 2023-03-19 13:10:00 Erik Jansen [facility] BASIC METABOLIC PANEL 2020-01-02 00:00:00 [facility] CBCA W/PLT & AUTO 2020-01-02 00:00:00 [facility] AMMONIA 2020-01-02 00:00:00 [facility] ALCOHOL 2020-01-01 00:00:00 [facility] AMMONIA 2020-01-01 00:00:00 [facility] CK 2020-01-01 00:00:00 [facility] CKMB 2020-01-01 00:00:00 [facility] MYOGLOBIN,BLOOD 2020-01-01 00:00:00 [facility] TROPONIN I 2020-01-01 00:00:00 [facility] CBCA W/PLT & AUTO 2019-12-31 00:00:00 [facility] COMPREHENSIVE METABOLIC 2019-12-31 00:00:00 [facility] UA COMPLETE W/CULTURE 2019-12-31 00:00:00 [facility] PROTIME 2019-12-31 00:00:00 [facility] PTT 2019-12-31 00:00:00 [facility] CARDIAC MARKERS PANEL (ER) 2019-12-31 00:00:00 [facility] AMYLASE 2019-12-31 00:00:00 [facility] LIPASE 2019-12-31 00:00:00 [facility] BLOOD CULTURE 2019-12-31 00:00:00 [facility] PROCALCITONIN 2019-12-31 00:00:00 [facility] LACTIC ACID 2019-12-31 00:00:00 [facility] URINE CULTURE 2019-12-31 00:00:00 [facility] AMMONIA 2019-12-31 00:00:00 [facility] ALCOHOL 2019-12-31 00:00:00 [facility] URINE DRUG 2019-12-31 00:00:00 [facility] CK 2019-12-31 00:00:00 [facility] CKMB 2019-12-31 00:00:00 [facility] MYOGLOBIN,BLOOD 2019-12-31 00:00:00 [facility] TROPONIN I 2019-12-31 00:00:00 [facility] CT BRAIN W/O CONTRAST 2019-12-31 00:00:00 [facility] CHEST 1 VIEW (AP) 2019-12-31 00:00:00 [facility] AMMONIA 2019-12-16 00:00:00 [facility] BASIC METABOLIC PANEL 2019-12-15 00:00:00 [facility] AMMONIA 2019-12-15 00:00:00 [facility] AMMONIA 2019-12-14 00:00:00 [facility] BASIC METABOLIC PANEL 2019-12-14 00:00:00 [facility] MAGNESIUM 2019-12-14 00:00:00 [facility] CBCA W/PLT & AUTO 2019-12-13 00:00:00 [facility] COMPREHENSIVE METABOLIC 2019-12-13 00:00:00 [facility] AMMONIA 2019-12-13 00:00:00 [facility] CBCA W/PLT & AUTO 2019-12-12 00:00:00 [facility] COMPREHENSIVE METABOLIC 2019-12-12 00:00:00 [facility] UA COMPLETE W/CULTURE 2019-12-12 00:00:00 [facility] PROTIME 2019-12-12 00:00:00 [facility] PTT 2019-12-12 00:00:00 [facility] BNP RAPID 2019-12-12 00:00:00 [facility] AMYLASE 2019-12-12 00:00:00 [facility] LIPASE 2019-12-12 00:00:00 [facility] AMMONIA 2019-12-12 00:00:00 [facility] LACTIC ACID 2019-12-12 00:00:00 [facility] URINE DRUG 2019-12-12 00:00:00 [facility] BLOOD CULTURE 2019-12-12 00:00:00 [facility] CARDIAC MARKERS PANEL (ER) 2019-12-12 00:00:00 [facility] WOUND CULTURE 2019-12-12 00:00:00 [facility] ALCOHOL 2019-12-12 00:00:00 [facility] CHEST 1 VIEW (AP) 2019-12-12 00:00:00 [facility] CT ABD & PELVIS W CONTRAST 2019-12-12 00:00:00 [facility] CT BRAIN W/O CONTRAST 2019-12-12 00:00:00 [facility] CBCA W/PLT & AUTO 2019-04-27 00:00:00 [facility] COMPREHENSIVE METABOLIC 2019-04-27 00:00:00 [facility] AMYLASE 2019-04-27 00:00:00 [facility] LIPASE 2019-04-27 00:00:00 [facility] TYPE AND SCREEN 2019-04-27 00:00:00 [facility] PACKED CELLS (RBC) 2019-04-27 00:00:00 [facility] LACTIC ACID 2019-04-27 00:00:00 [facility] STOOL OCCULT BLOOD 2019-04-27 00:00:00 [facility] GASTRICULT 2019-04-27 00:00:00 [facility] PROTIME 2019-04-27 00:00:00 [facility] PTT 2019-04-27 00:00:00 [facility] FRESH FROZEN PLASMA 2019-04-27 00:00:00 [facility] ALCOHOL 2019-04-27 00:00:00 [facility] BASIC METABOLIC PANEL 2019-04-16 00:00:00 [facility] CBCA W/PLT & AUTO 2019-04-16 00:00:00 [facility] ERYTHROCYTE SEDIMENTATION 2019-04-16 00:00:00 [facility] AFT, SERUM,TUMOR MARKER* 2019-04-16 00:00:00 [facility] BASIC METABOLIC PANEL 2019-04-14 00:00:00 [facility] VANCOMYCIN TROUGH 2019-04-14 00:00:00 [facility] URINE CULTURE 2019-04-13 00:00:00 [facility] US ECHO GUIDANCE 2019-04-13 00:00:00 [facility] Hospital DRAINAGE OF PERITONEAL 2019-04-13 00:00:00 [facility] CAVITY, PERCUTANEOUS Hospital APPROACH, DIAGN VANCOMYCIN TROUGH 2019-04-12 00:00:00 [facility] CBCA W/PLT & AUTO 2019-04-12 00:00:00 [facility] COMPREHENSIVE METABOLIC 2019-04-12 00:00:00 [facility] BLOOD CULTURE 2019-04-12 00:00:00 [facility] BASIC METABOLIC PANEL 2019-04-11 00:00:00 [facility] CBCA W/PLT & AUTO 2019-04-11 00:00:00 [facility] VANCOMYCIN TROUGH 2019-04-10 00:00:00 [facility] CBCA W/PLT & AUTO 2019-04-10 00:00:00 [facility] BASIC METABOLIC PANEL 2019-04-10 00:00:00 [facility] BLOOD CULTURE 2019-04-10 00:00:00 [facility] CBCA W/PLT & AUTO 2019-04-09 00:00:00 [facility] COMPREHENSIVE METABOLIC 2019-04-09 00:00:00 [facility] PACKED CELLS (RBC) 2019-04-09 00:00:00 [facility] STOOL OCCULT BLOOD 2019-04-09 00:00:00 [facility] TYPE AND SCREEN 2019-04-09 00:00:00 [facility] HEMOGLOBIN 2019-04-09 00:00:00 [facility] HEMATOCRIT 2019-04-09 00:00:00 [facility] TRANSFUSE NONAUT RED BLOOD 2019-04-09 00:00:00 [facility] CELLS IN PERIPH VEIN, PERC [facility] URINE CULTURE 2019-04-08 00:00:00 [facility] PROTIME 2019-04-08 00:00:00 [facility] PTT 2019-04-08 00:00:00 [facility] A1C 2019-04-08 00:00:00 [facility] LIPID PANEL 2019-04-08 00:00:00 [facility] THYROID STIMULATING 2019-04-08 00:00:00 [facility] BODY FLUID CULTURE 2019-04-08 00:00:00 [facility] BODY FLUID CELL COUNT 2019-04-08 00:00:00 [facility] US ECHO GUIDANCE 2019-04-08 00:00:00 [facility] PARACENTESIS [facility] DRAINAGE OF PERITONEAL 2019-04-08 00:00:00 [facility] CAVITY, PERCUTANEOUS Hospital APPROACH CBCA W/PLT & AUTO 2019-04-07 00:00:00 [facility] COMPREHENSIVE METABOLIC 2019-04-07 00:00:00 [facility] LACTIC ACID 2019-04-07 00:00:00 [facility] UA COMPLETE W/CULTURE 2019-04-07 00:00:00 [facility] BLOOD CULTURE 2019-04-07 00:00:00 [facility] HIV ANTIGEN/ANTIBODY 2019-04-07 00:00:00 [facility] CHEST 2 VIEWS 2019-04-07 00:00:00 [facility] CT ABD & PELVIS W CONTRAST 2019-04-07 00:00:00 H [facility] Plan of Care Planned Activity Planned Date Details Comments Source Future Scheduled 2023-05-31 [facility]:33:20 malignant neoplasm of colon (procedure) [code = 560929391] Future Scheduled 2023-05-31 [facility] 22:33:20 malignant neoplasm of colon (procedure) [code = 937441425] Future Scheduled 2023-05-31 [facility] 22:33:20 malignant neoplasm of colon (procedure) [code = 746074307] Future Scheduled 2023-05-31 [facility] 22:33:20 (#1) [code = COVID-19 VACCINE (#1)] Future Scheduled 2023-05-31 [facility] 22:33:20 malignant neoplasm of cervix (procedure) [code = 677851277] Future Scheduled 2023-05-31 BREAST CANCER [facility] 22:33:20 SCREENING [code = BREAST CANCER SCREENING] Future Scheduled 2023-05-31 [facility] 22:33:20 malignant neoplasm of colon (procedure) [code = 833281673] Future Scheduled 2023-05-31 [facility] 22:33:20 malignant neoplasm of colon (procedure) [code = 325305518] Future Scheduled 2023-05-31 SH[facility]LES [facility]ACCINES [facility] 22:33:20 (1 of 2) [code = SHINGLES VACCINES (1 of 2)] Future Scheduled 2023-05-31 INFLUENZA VACCINE [facility] 22:33:20 (#1) [code = INFLUENZA VACCINE (#1)] Future Scheduled 2023-03-09 [facility] Test 14:37:42 malignant neoplasm of colon (procedure) [code = 111895853] Future Scheduled 2023-03-09 [facility] Test 14:37:42 malignant neoplasm of colon (procedure) [code = 528019018] Future Scheduled 2023-03-09 [facility] Test 14:37:42 malignant neoplasm of colon (procedure) [code = 590801025] Future Scheduled 2023-03-09 [facility]19 [facility] 14:37:42 (#1) [code = COVID-19 VACCINE (#1)] Future Scheduled 2023-03-09 [facility] Test 14:37:42 malignant neoplasm of cervix (procedure) [code = 045186777] Future Scheduled 2023-03-09 BREAST CANCER [facility] Test 14:37:42 SCREENING [code = BREAST CANCER SCREENING] Future Scheduled 2023-03-09 [facility] Test 14:37:42 malignant neoplasm of colon (procedure) [code = 301895392] Future Scheduled 2023-03-09 [facility] Test 14:37:42 malignant neoplasm of colon (procedure) [code = 815683561] Future Scheduled 2023-03-09 [facility]INES [facility] 14:37:42 (1 of 2) [code = SHINGLES VACCINES (1 of 2)] Future Scheduled 2023-03-09 IN[facility]UENZA VACCINE [facility] 14:37:42 [code = INFLUENZA VACCINE] Encounters Start End Encounter Admission Attending Care Care Encounter Source Date/Time Date/Time Type Type Clinicians Facility Department ID 2023-05-07 2023-05-07 Patient Bela Marroquin 1..840.114 [id number] [facility] 00:00:00 00:00:00 Outreach E EV[place] 350.1.13.10 [place] [id number] [facility] [address] 2023-04-25 2023-04-25 Telephone HENRY Welch 1.2.840.114 [id number] Univers 00:00:00 00:00:00 Khaled F HEALTH 350.1.13.10 [place] [phone] [facility] MEDICAL [address] OFFICE BUILDING 2023-04-19 2023-04-19 Transition PARUL Lopez 1.2.840.114 [id number] Univers 00:00:00 00:00:00 of Care Nafisa [place] 350.1.13.10 [place] [id number] [facility] [address] 2023-04-19 2023-04-19 Patient PARUL Proctor 1.2.840.114 [id number] Univers 00:00:00 00:00:00 Outreach Mar [place] 350.1.13.10 [place] [id number] [facility] [address] 2023-04-19 2023-04-19 Telephone HENRY Welch 1.2.840.114 [id number] Univers 00:00:00 00:00:00 [facility] 350.1.13.10 [place] [id number] [facility][note 3] [address] OFFICE BUILDING 2023-04-17 2023-04-17 Patient Esthela KORINAlbino 1.2.840.114 [id number] Univers 00:00:00 00:00:00 Outreach Mar [place] 350.1.13.[place] [id number] [facility] [address] 2023-04-16 2023-04-16 Patient PARUL Proctor 1.2.840.114 [id number] Univers 00:00:00 00:00:00 Outreach Mar [place] 350.1.13.[place] [phone] [facility] [address] 2023-04-04 2023-04-04 Orders Doctor DEANNE 1.2.840.114 [id number] Univers 00:00:00 00:00:00 Only Unassigned, JIGNESH 350.1.13.10 ity of [facility] 4.2.7.2.686 [place] [id number] [facility] [address] 2023-03-29 2023-03-29 Transition PARUL Hernandez 1.2.840.114 [id number] Univers 00:00:00 00:00:00 of Care Milagros JACKSONY 350.1.13.10 it y of [place] [id number] [facility] [address] 2023-03-19 2023-03-28 Hospital Stefany MckayNIE 1.2.840. 114 [id number] Univers 06:14:00 16:05:00 Encounter Maday Hernandez 350.1.13.10 ity of [facility] 4.2.7.2.686 [place] [id number] [facility] [address] 2023-03-19 2023-03-28 Inpatient U [facility] [id number] Univers 06:14:00 16:05:00 [facility] ity [facility] 2023-03-19 2023-03-28 Inpatient U [facility] [id number] Univers 06:14:00 16:05:00 [facility] ity [facility] 2023-03-25 2023-03-25 Surgery KRISTIE ChavezNIE 1.2.975.701 [id number] Univers 12:30:00 15:30:00 Afmalvin EGAN 350.1.13.10 it y of [facility] 4.2.7.2.686 [place] [id number] [facility] [address] 2022-11-11 2022-11-11 Outpatient GC_CCW_Rami PRIV PRIV [id number] [facility] 00:00:00 00:00:00 neni_R [id number] Medica l 2019-12-31 2020-01-02 Discharged [facility] H000 [id number] 14:14:00 13:39:00 Inpatient [facility] [address] [facility] 2019-12-12 2019-12-16 Discharged [facility] H000 [id number] vi 16:25:00 14:51:00 Inpatient [facility] [address] [facility] 2019-08-04 2019-08-04 Departed [facility] [id number] Denys 11:53:00 13:55:00 Emergency [facility] [address] [facility] 2019-04-27 2019-04-27 Departed [facility]ID [facility] [id number] Denys 15:16:00 18:31:00 Emergency JANETTE 01 e [facility] 2019-04-07 2019-04-16 Discharged HUGO BOOKER [facility] H00 [id number] Denys 17:12:00 14:25:00 Inpatient HASEEB ADHIKARI 69 ll e [facility] Results Test Description Test Time Test Comments Results Result Comments Source POCT GLUCOSE (AUTOMATED) 2023-03-28 16:59:23 Test Item Value Reference Range Interpretation Comme nts POCT GLU (test code = 9570091475) 127 mg/dL 70-110 H Notified Provider Lab Interpretation (test code = 24722-3) Abnormal [facility] GLUCOSE (AUTOMATED)2023-03-28 13:17:43 Test Item Value Reference Range Interpretation Comments POCT GLU (test code = 129 mg/dL 70-110 H Notifi ed Provider [id number]) Lab Interpretation (test Abnormal code = 27477-7) [facility] GLUCOSE (AUTOMATED)2023-03-28 01:41:55 Test Item Value Reference Range Interpretation Comments POCT GLU (test code = 7470079536) 190 mg/dL 70-110 H Lab Interpretation (test code = Abnormal 81987-8) [facility] [id number] 01:34:59 Test Item Value Reference Range Interpretation Comments PROTIME PATIENT (test 12.8 See_Comment H [Auto mated message] code = 5964-2) The system [employer] generated this result transmitted ref erence range: 10.1 - 1 2.6 Seconds. The reference range was not used to int erpret this result as normal/abnormal . INR (test code = 6301-6) 1.1 Nor mal INR <1.1; Warfarin Therap eutic range 2.0 to 3. 0 or 2.5 to 3.5, dep ending upon the indica tions. Lab Interpretation (test Abnormal code = 11012-4) [facility] [id number] 01:08:25 Test Item Value Reference Range Interpretation Comments HBsAB (test code = Indeterminate 5364692112) HBsAb 7.60 mIU/mL Semi-Quantitative (test code = 5253129324) YENI (test code = Unable to determine if YENI) antibody to Hepatitis B Surface Antigen is present at levels consistent with immunity. ?Patient's immune status should be assessed with other clinical information and/or retesting in 4-6 weeks as clinically indicated. ?If any questions, please contact Clinical Chemistry Director agricultural economist at .Interpretati on: ?Hepatitis B Surface Antibody ? Negative - Patient is considered to be not immune to infection with HBV. ? ? Positive - Anti-HBs detected at greater than or equal to 12 mIU/mL. ?Patient is considered to be immune to infection with HBV. ? [facility] WITH [id number] 23:57:50 Test Item Value Reference Range Interpretation Comments WBC (test code = 5.73 See_Comment [Automated 6690-2) message] The sy stem which generated this result transmitted reference range : 4.30 - 11.10 10*3/?L. The reference range was not used to interpret this result as normal/abnormal . RBC (test code = 3.20 See_Comment L [Automated 789-8) message] The sy stem which generated this result transmitted reference range : 3.93 - 5.25 10*6/?L. The reference range was not used to interpret this result as normal/abnormal . HGB (test code = 10.1 g/dL 11.6-15.0 L 718-7) HCT (test code = 31.0 % 35.7-45.2 L 4544-3) MCV (test code = 96.9 fL 80.6-95.5 H 787-2) MCH (test code = 31.6 pg 25.9-32.8 785-6) MCHC (test code = 32.6 g/dL 31.6-35.1 786-4) RDW-SD (test code = 61.7 fL 39.0-49.9 H 75080-3) RDW-CV (test code = 17.6 % 12.0-15.5 H 788-0) PLT (test code = 121 See_Comment L [Automated 777-3) message] The sy stem which generated this result transmitted reference range : 166 - 358 10*3/ ?L. The reference r raimundo was not used to interpret this result as normal/abnormal . MPV (test code = 11.4 fL 9.5-12.9 89207-1) NRBC/100 WBC (test 0.0 See_Comment [Automat ed code = 4743177643) message] The system which generated this result transmitted reference range : 0.0 - 10.0 /100 WBCs. The refer ence range was not u sed to interpret th is result as normal/abnormal . NRBC x10^3 (test code See_Comment [Auto mated = 5675211527) message] The s ystem which generated this result transmitted reference range : 10*3/?L. The reference range was not used to interpret this result as normal/abnormal . GRAN MAT (NEUT) % 73.7 % (test code = 770-8) IMM GRAN % (test code 0.50 % = 5510184664) LYMPH % (test code = 8.6 % 736-9) MONO % (test code = 13.6 % 5905-5) EOS % (test code = 1.7 % 713-8) BASO % (test code = 1.9 % 706-2) GRAN MAT x10^3(ANC) 4.22 10*3/uL 1.88-7.09 (test code = 0976615094) IMM GRAN x10^3 (test 0.03 10*3/uL 0.00-0.06 code = 8384697583) LYMPH x10^3 (test code 0.49 10*3/uL 1.32-3.29 L = 731-0) MONO x10^3 (test code 0.78 10*3/uL 0.33-0.92 = 742-7) EOS x10^3 (test code = 0.10 10*3/uL 0.03-0.39 711-2) BASO x10^3 (test code 0.11 10*3/uL 0.01-0.07 H = 704-7) Lab Interpretation Abnormal (test code = 63781-8) [facility] [id number] 23:43:25 Test Item Value Reference Range Interpretation Comments HCV Ab (test code = 72075-6) Negative HCV Semi-Quantitative (test code = 0.09 01090-1) [facility]ALPHA [id number] 23:29:28 Test Item Value Reference Range Interpretation Comments AFP (test code = 8.3 ng/mL <=7.5 H 5940532102) YENI (test code = YENI) Biotin has been reported to cause a negative bias, interpret results relative to patient's use of biotin. Lab Interpretation (test Abnormal code = 73438-6) [facility] [id number] 23:26:06 Test Item Value Reference Range Interpretation Comments HBsAg Semi-Quantitative (test code = 0.22 Negative 5195-3) [facility] CenterAMMON[facility], [id number] 17:07:38 Test Item Value Reference Range Interpretation Comments AMMONIA (test code = 2846147677) 57 umol/L 9-33 H Lab Interpretation (test code = Abnormal 48731-5) [facility] Center[facility]-TERMINAL [id number] 12:24:38 Test Item Value Reference Range Interpretation Comments NT-proBNP (test code = 1500 pg/mL <=125 H 53179-8) YENI (test code = YENI) Positive: Heart Failure Likely Lab Interpretation (test Abnormal code = 50390-1) [facility]. METABOLIC PANEL (04346)2023-03-27 12:13:42 Test Item Value Reference Range Interpretation Comments NA (test code = 135 mmol/L 135-145 6088854026) K (test code = 3.9 mmol/L 3.5-5.0 0568185252) CL (test code = 107 mmol/L 98-108 1620843411) CO2 TOTAL (test code = 19 mmol/L 23-31 L 0757508369) AGAP (test code = 9 2-16 8205130461) BUN (test code = 18 mg/dL 7-23 6235336727) GLUCOSE (test code = 90 mg/dL 70-110 3582364669) CREATININE (test code = 0.89 mg/dL 0.50-1.04 3841071963) TOTAL BILI (test code = 1.4 mg/dL 0.1-1.1 H 3611329913) CALCIUM (test code = 8.1 mg/dL 8.6-10.6 L 1439218409) T PROTEIN (test code = 7.0 g/dL 6.3-8.2 8623268623) ALBUMIN (test code = 3.0 g/dL 3.5-5.0 L 6838820812) ALK PHOS (test code = 151 U/L 34-122 H 8623451803) ALTv (test code = 35 U/L 5-35 1742-6) AST(SGOT) (test code = 74 U/L 13-40 H 7365381426) eGFR (test code = 66.3 mL/min/1.73m2 1238413883) YENI (test code = YENI) Association of Glomerular Filtration Rate (GFR) and Staging of Kidney Disease* + --+ --+ ------+| GFR (mL/min/1.73 m2) ?| With Kidney Damage ?| ?Without Kidney Damage+ --------+ --------+ +| ?>90 ?| ?Stage one ?| ? Normal ?+ ---+ ---+ -------+| ?60-89 ?| ?Stage two ?| ? Decreased GFR ? + --+ --+ ------+| ?30-59 ?| ?Stage three ?| ? Stage three ? + --+ --+ ------+| ?15-29 ?| ?Stage four ? | ? Stage four ?+ ---+ ---+ -------+| ?<15 (or dialysis) ? ?| ?Stage five ? | ? Stage five ?+ ---+ ---+ -------+ *Each stage assumes the associated GFR level has been in effect for at least three months. ?Stages 1 to 5, with or without kidney disease, indicate chronic kidney disease. Notes: Determination of stages one and two (with eGFR >59mL/min/1.73 m2) requires estimation of kidney damage for at least three months as defined by structural or functional abnormalities of the kidney, manifested by either:Pathological abnormalities or Markers of kidney damage (including abnormalities in the composition of the blood or urine or abnormalities in imaging tests). Lab Interpretation Abnormal (test code = 62860-5) [facility] UNCONJUGATED/BILI [id number] 12:13:42 Test Item Value Reference Range Interpretation Comments BILI CONJ (test code = 8074220029) 0.0 mg/dL 0.0-0.3 BILI UNCON (test code = 5000500529) 0.6 mg/dL 0.1-1.1 Lab Interpretation (test code = Normal 50251-0) [facility] WITH [id number] 10:12:45 Test Item Value Reference Range Interpretation Comments WBC (test code = 4.61 See_Comment [Automated 6690-2) message] The sy stem which generated this result transmitted reference range : 4.30 - 11.10 10*3/?L. The reference range was not used to interpret this result as normal/abnormal . RBC (test code = 3.18 See_Comment L [Automated 789-8) message] The sy stem which generated this result transmitted reference range : 3.93 - 5.25 10*6/?L. The reference range was not used to interpret this result as normal/abnormal . HGB (test code = 9.9 g/dL 11.6-15.0 L 718-7) HCT (test code = 30.8 % 35.7-45.2 L 4544-3) MCV (test code = 96.9 fL 80.6-95.5 H 787-2) MCH (test code = 31.1 pg 25.9-32.8 785-6) MCHC (test code = 32.1 g/dL 31.6-35.1 786-4) RDW-SD (test code = 62.8 fL 39.0-49.9 H 95636-2) RDW-CV (test code = 18.0 % 12.0-15.5 H 788-0) PLT (test code = 109 See_Comment L [Automated 777-3) message] The sy stem which generated this result transmitted reference range : 166 - 358 10*3/ ?L. The reference r raimundo was not used to interpret this result as normal/abnormal . MPV (test code = 11.9 fL 9.5-12.9 68743-7) NRBC/100 WBC (test 0.0 See_Comment [Automat ed code = 1724563674) message] The system which generated this result transmitted reference range : 0.0 - 10.0 /100 WBCs. The refer ence range was not u sed to interpret th is result as normal/abnormal . NRBC x10^3 (test code See_Comment [Auto mated = 7510561627) message] The s ystem which generated this result transmitted reference range : 10*3/?L. The reference range was not used to interpret this result as normal/abnormal . GRAN MAT (NEUT) % 64.4 % (test code = 770-8) IMM GRAN % (test code 0.90 % = 6889764043) LYMPH % (test code = 13.2 % 736-9) MONO % (test code = 13.7 % 5905-5) EOS % (test code = 5.0 % 713-8) BASO % (test code = 2.8 % 706-2) GRAN MAT x10^3(ANC) 2.97 10*3/uL 1.88-7.09 (test code = 6915987616) IMM GRAN x10^3 (test 0.04 10*3/uL 0.00-0.06 code = 1395881627) LYMPH x10^3 (test code 0.61 10*3/uL 1.32-3.29 L = 731-0) MONO x10^3 (test code 0.63 10*3/uL 0.33-0.92 = 742-7) EOS x10^3 (test code = 0.23 10*3/uL 0.03-0.39 711-2) BASO x10^3 (test code 0.13 10*3/uL 0.01-0.07 H = 704-7) Lab Interpretation Abnormal (test code = 52348-3) [id number]:01:42 Test Item Value Reference Range Interpretation Comments Blood Culture-Aerobic No organisms No growth Previo us (test code = 15205-6) isolated prelim inary verified result was Culture In Progress on 03/20/2023 at 11 01 CDTPrevious preliminary verified result was No growth a t 24 hours on 03/21/2023 at 08 01 CDTPrevious preliminary verified result was No growth a t 48 hours on 03/22/2023 at 08 01 CDTPrevious preliminary verified result was No growth a t 72 hours on 03/23/2023 at 08 01 CDT Blood No organisms No growth Previous Culture-Anaerobic isolated preliminar y (test code = 06722-7) verifi ed result was Culture In Progress on 03/20/2023 at 11 01 CDTPrevious preliminary verified result was No growth a t 24 hours on 03/21/2023 at 08 01 CDTPrevious preliminary verified result was No growth a t 48 hours on 03/22/2023 at 08 CDTPrevious preliminary verified result was No growth a t 72 hours on 03/23/2023 at 08 01 CDT Lab Interpretation Normal (test code = 23003-4) [facility] [id number] 13:01:42 Test Item Value Reference Range Interpretation Comments Blood Culture-Aerobic No organisms No growth Previo us (test code = 94327-7) isolated prelim inary verified result was Culture In Progress on 03/20/2023 at 11 01 CDTPrevious preliminary verified result was No growth a t 24 hours on 03/21/2023 at 08 CDTPrevious preliminary verified result was No growth a t 48 hours on 03/22/2023 at 08 CDTPrevious preliminary verified result was No growth a t 72 hours on 03/23/2023 at 08 01 CDT Blood No organisms No growth Previous Culture-Anaerobic isolated preliminar y (test code = 83059-5) verifi ed result was Culture In Progress on 03/20/2023 at 11 01 CDTPrevious preliminary verified result was No growth a t 24 hours on 03/21/2023 at 08 CDTPrevious preliminary verified result was No growth a t 48 hours on 03/22/2023 at 08 01 CDTPrevious preliminary verified result was No growth a t 72 hours on 03/23/2023 at 08 01 CDT Lab Interpretation Normal (test code = 18544-6) [facility] (ALB,T.PRO,BILI T,BU/BC,ALT,AST,ALK PHOS)2023-03-22 12:15:18 Test Item Value Reference Range Interpretation Comments TOTAL BILI (test code = 2626274079) 2.1 mg/dL 0.1-1.1 H BILI UNCON (test code = 4817522784) 1.2 mg/dL 0.1-1.1 H BILI CONJ (test code = 5258986420) 0.0 mg/dL 0.0-0.3 T PROTEIN (test code = 5744105897) 6.6 g/dL 6.3-8.2 ALBUMIN (test code = 6344245814) 2.9 g/dL 3.5-5.0 L ALK PHOS (test code = 6806408130) 119 U/L 34-122 ALTv (test code = 1742-6) 33 U/L 5-35 AST(SGOT) (test code = 3734327581) 51 U/L 13-40 H Lab Interpretation (test code = Abnormal 69661-2) [facility] 12:15:18 Test Item Value Reference Range Interpretation Comments MAGNESIUM (test code = 9638016752) 1.9 mg/dL 1.7-2.4 Lab Interpretation (test code = Normal 57455-8) [facility] (NA, K, CL, CO2, GLUCOSE, BUN, CREATININE, CA)2023-03-22 12:15:18 Test Item Value Reference Range Interpretation Comments NA (test code = 135 mmol/L 135-145 9380565085) K (test code = 3.5 mmol/L 3.5-5.0 0653968401) CL (test code = 91 mmol/L 98-108 L 4300004999) CO2 TOTAL (test code = 35 mmol/L 23-31 H 9757749001) AGAP (test code = 9 2-16 3213228522) BUN (test code = 23 mg/dL 7-23 9666904080) GLUCOSE (test code = 111 mg/dL 70-110 H 2105353974) CREATININE (test code = 1.25 mg/dL 0.50-1.04 H 6837224661) CALCIUM (test code = 8.5 mg/dL 8.6-10.6 L 0124797600) eGFR (test code = 44.8 mL/min/1.73m2 7886750574) YENI (test code = YENI) Association of Glomerular Filtration Rate (GFR) and Staging of Kidney Disease* + --+ --+ ------+| GFR (mL/min/1.73 m2) ?| With Kidney Damage ?| ?Without Kidney Damage+ --------+ --------+ +| ?>90 ?| ?Stage one ?| ? Normal ?+ ---+ ---+ -------+| ?60-89 ?| ?Stage two ?| ? Decreased GFR ? + --+ --+ ------+| ?30-59 ?| ?Stage three ?| ? Stage three ? + --+ --+ ------+| ?15-29 ?| ?Stage four ? | ? Stage four ?+ ---+ ---+ -------+| ?<15 (or dialysis) ? ?| ?Stage five ? | ? Stage five ?+ ---+ ---+ -------+ *Each stage assumes the associated GFR level has been in effect for at least three months. ?Stages 1 to 5, with or without kidney disease, indicate chronic kidney disease. Notes: Determination of stages one and two (with eGFR >59mL/min/1.73 m2) requires estimation of kidney damage for at least three months as defined by structural or functional abnormalities of the kidney, manifested by either:Pathological abnormalities or Markers of kidney damage (including abnormalities in the composition of the blood or urine or abnormalities in imaging tests). Lab Interpretation Abnormal (test code = 25473-1) [facility]59[facility] (ALB,T.PRO,BILI T,BU/BC,ALT,AST,ALK PHOS)2023-03-22 12:15:18 Test Item Value Reference Range Interpretation Comments TOTAL BILI (test code = 2580940607) 2.1 mg/dL 0.1-1.1 H BILI UNCON (test code = 4787284106) 1.2 mg/dL 0.1-1.1 H BILI CONJ (test code = 2722148584) 0.0 mg/dL 0.0-0.3 T PROTEIN (test code = 8743362147) 6.6 g/dL 6.3-8.2 ALBUMIN (test code = 3659238502) 2.9 g/dL 3.5-5.0 L ALK PHOS (test code = 1739797336) 119 U/L 34-122 ALTv (test code = 1742-6) 33 U/L 5-35 AST(SGOT) (test code = 0974114675) 51 U/L 13-40 H Lab Interpretation (test code = Abnormal 95735-9) [facility] 12:15:18 Test Item Value Reference Range Interpretation Comments MAGNESIUM (test code = 1636257023) 1.9 mg/dL 1.7-2.4 Lab Interpretation (test code = Normal 68744-3) [facility] METABOLIC PANEL (NA, K, CL, CO2, GLUCOSE, BUN, CREATININE, CA)2023-03-22 12:15:18 Test Item Value Reference Range Interpretation Comments NA (test code = 135 mmol/L 135-145 1035085989) K (test code = 3.5 mmol/L 3.5-5.0 0188283706) CL (test code = 91 mmol/L 98-108 L 5369638496) CO2 TOTAL (test code = 35 mmol/L 23-31 H 5376145703) AGAP (test code = 9 2-16 4026689684) BUN (test code = 23 mg/dL 7-23 1087887299) GLUCOSE (test code = 111 mg/dL 70-110 H 0054611496) CREATININE (test code = 1.25 mg/dL 0.50-1.04 H 5049673727) CALCIUM (test code = 8.5 mg/dL 8.6-10.6 L 3238178447) eGFR (test code = 44.8 mL/min/1.73m2 4356487824) YENI (test code = YENI) Association of Glomerular Filtration Rate (GFR) and Staging of Kidney Disease* + --+ --+ ------+| GFR (mL/min/1.73 m2) ?| With Kidney Damage ?| ?Without Kidney Damage+ --------+ --------+ +| ?>90 ?| ?Stage one ?| ? Normal ?+ ---+ ---+ -------+| ?60-89 ?| ?Stage two ?| ? Decreased GFR ? + --+ --+ ------+| ?30-59 ?| ?Stage three ?| ? Stage three ? + --+ --+ ------+| ?15-29 ?| ?Stage four ? | ? Stage four ?+ ---+ ---+ -------+| ?<15 (or dialysis) ? ?| ?Stage five ? | ? Stage five ?+ ---+ ---+ -------+ *Each stage assumes the associated GFR level has been in effect for at least three months. ?Stages 1 to 5, with or without kidney disease, indicate chronic kidney disease. Notes: Determination of stages one and two (with eGFR >59mL/min/1.73 m2) requires estimation of kidney damage for at least three months as defined by structural or functional abnormalities of the kidney, manifested by either:Pathological abnormalities or Markers of kidney damage (including abnormalities in the composition of the blood or urine or abnormalities in imaging tests). Lab Interpretation Abnormal (test code = 46467-6) [facility]for use with Heparin Infusion)2023-03-22 11:04:17 Test Item Value Reference Range Interpretation Comments APTT Patient (test code 95 See_Comment H [Au tomated message] = 3173-2) The system [employer] generated this result transmitted ref erence range: 26 - 36 Seconds. The reference range was not used to int erpret this result as normal/abnormal . Lab Interpretation (test Abnormal code = 17062-7) [facility] acute hospital (for use with Heparin Infusion)2023-03-22 11:04:17 Test Item Value Reference Range Interpretation Comments APTT Patient (test code 95 See_Comment H [Au tomated message] = 3173-2) The system [employer] generated this result transmitted ref erence range: 26 - 36 Seconds. The reference range was not used to int erpret this result as normal/abnormal . Lab Interpretation (test Abnormal code = 86062-7) [facility] WITH [id number] 11:00:10 Test Item Value Reference Range Interpretation Comments WBC (test code = 6.93 See_Comment [Automated 6690-2) message] The sy stem which generated this result transmitted reference range : 4.30 - 11.10 10*3/?L. The reference range was not used to interpret this result as normal/abnormal . RBC (test code = 3.63 See_Comment L [Automated 789-8) message] The sy stem which generated this result transmitted reference range : 3.93 - 5.25 10*6/?L. The reference range was not used to interpret this result as normal/abnormal . HGB (test code = 11.6 g/dL 11.6-15.0 718-7) HCT (test code = 34.2 % 35.7-45.2 L 4544-3) MCV (test code = 94.2 fL 80.6-95.5 787-2) MCH (test code = 32.0 pg 25.9-32.8 785-6) MCHC (test code = 33.9 g/dL 31.6-35.1 786-4) RDW-SD (test code = 56.0 fL 39.0-49.9 H 89703-1) RDW-CV (test code = 17.4 % 12.0-15.5 H 788-0) PLT (test code = 111 See_Comment L [Automated 777-3) message] The sy stem which generated this result transmitted reference range : 166 - 358 10*3/ ?L. The reference r raimundo was not used to interpret this result as normal/abnormal . MPV (test code = 12.0 fL 9.5-12.9 79685-9) NRBC/100 WBC (test 0.0 See_Comment [Automat ed code = 6089737904) message] The system which generated this result transmitted reference range : 0.0 - 10.0 /100 WBCs. The refer ence range was not u sed to interpret th is result as normal/abnormal . NRBC x10^3 (test code See_Comment [Auto mated = 4189790447) message] The s ystem which generated this result transmitted reference range : 10*3/?L. The reference range was not used to interpret this result as normal/abnormal . GRAN MAT (NEUT) % 72.0 % (test code = 770-8) IMM GRAN % (test code 0.60 % = 0772855219) LYMPH % (test code = 10.0 % 736-9) MONO % (test code = 13.1 % 5905-5) EOS % (test code = 3.0 % 713-8) BASO % (test code = 1.3 % 706-2) GRAN MAT x10^3(ANC) 4.99 10*3/uL 1.88-7.09 (test code = 5332603118) IMM GRAN x10^3 (test 0.04 10*3/uL 0.00-0.06 code = 7502014232) LYMPH x10^3 (test code 0.69 10*3/uL 1.32-3.29 L = 731-0) MONO x10^3 (test code 0.91 10*3/uL 0.33-0.92 = 742-7) EOS x10^3 (test code = 0.21 10*3/uL 0.03-0.39 711-2) BASO x10^3 (test code 0.09 10*3/uL 0.01-0.07 H = 704-7) Lab Interpretation Abnormal (test code = 33645-3) [facility] WITH [id number] 11:00:10 Test Item Value Reference Range Interpretation Comments WBC (test code = 6.93 See_Comment [Automated 6690-2) message] The sy stem which generated this result transmitted reference range : 4.30 - 11.10 10*3/?L. The reference range was not used to interpret this result as normal/abnormal . RBC (test code = 3.63 See_Comment L [Automated 789-8) message] The sy stem which generated this result transmitted reference range : 3.93 - 5.25 10*6/?L. The reference range was not used to interpret this result as normal/abnormal . HGB (test code = 11.6 g/dL 11.6-15.0 718-7) HCT (test code = 34.2 % 35.7-45.2 L 4544-3) MCV (test code = 94.2 fL 80.6-95.5 787-2) MCH (test code = 32.0 pg 25.9-32.8 785-6) MCHC (test code = 33.9 g/dL 31.6-35.1 786-4) RDW-SD (test code = 56.0 fL 39.0-49.9 H 42141-4) RDW-CV (test code = 17.4 % 12.0-15.5 H 788-0) PLT (test code = 111 See_Comment L [Automated 777-3) message] The sy stem which generated this result transmitted reference range : 166 - 358 10*3/ ?L. The reference r raimundo was not used to interpret this result as normal/abnormal . MPV (test code = 12.0 fL 9.5-12.9 46498-0) NRBC/100 WBC (test 0.0 See_Comment [Automat ed code = 1450147420) message] The system which generated this result transmitted reference range : 0.0 - 10.0 /100 WBCs. The refer ence range was not u sed to interpret th is result as normal/abnormal . NRBC x10^3 (test code See_Comment [Auto mated = 0595934507) message] The s ystem which generated this result transmitted reference range : 10*3/?L. The reference range was not used to interpret this result as normal/abnormal . GRAN MAT (NEUT) % 72.0 % (test code = 770-8) IMM GRAN % (test code 0.60 % = 2537061904) LYMPH % (test code = 10.0 % 736-9) MONO % (test code = 13.1 % 5905-5) EOS % (test code = 3.0 % 713-8) BASO % (test code = 1.3 % 706-2) GRAN MAT x10^3(ANC) 4.99 10*3/uL 1.88-7.09 (test code = 2260453987) IMM GRAN x10^3 (test 0.04 10*3/uL 0.00-0.06 code = 3409739938) LYMPH x10^3 (test code 0.69 10*3/uL 1.32-3.29 L = 731-0) MONO x10^3 (test code 0.91 10*3/uL 0.33-0.92 = 742-7) EOS x10^3 (test code = 0.21 10*3/uL 0.03-0.39 711-2) BASO x10^3 (test code 0.09 10*3/uL 0.01-0.07 H = 704-7) Lab Interpretation Abnormal (test code = 46286-1) [facility] 04:44:55 Test Item Value Reference Range Interpretation Comments APTT Patient (test code See_Comment HH [Au tomated message] = 3173-2) The system [employer] generated this result transmitted ref erence range: 26 - 36 Seconds. The reference range was not used to int erpret this result as normal/abnormal . Lab Interpretation (test Abnormal code = 56860-2) [facility] 04:44:55 Test Item Value Reference Range Interpretation Comments APTT Patient (test code See_Comment [Au tomated message] = 3173-2) The system [employer] generated this result transmitted ref erence range: 26 - 36 Seconds. The reference range was not used to int erpret this result as normal/abnormal . Lab Interpretation (test Abnormal code = 66792-9) [facility] [id number] 21:51:07 Test Item Value Reference Range Interpretation Comments TROPONIN I (test code = 0.069 ng/mL <=0.034 H 0392513941) YENI (test code = YENI) Reference (Normal) Range (defined by the 99th percentile reference limit): <= 0.034 ng/mL Note: Cardiac troponin begins to rise 3-4 hours after the onset of ischemia. Repeat in 4-6 hours if the sample was drawn within 3-4 hours of the onset of the symptom and found normal. Diagnosis of myocardial injury is made with acute changes in cTn concentrations with at least one serial sample above the 99th percentile upper reference limit (URL), taken together with the patient's clinical presentation. Biotin has been reported to cause a negative bias, interpret results relative to patient's use of biotin. Lab Interpretation Abnormal (test code = 57670-8) [facility] [id number] 21:51:07 Test Item Value Reference Range Interpretation Comments TROPONIN I (test code = 0.069 ng/mL <=0.034 H 0404327927) YENI (test code = YENI) Reference (Normal) Range (defined by the 99th percentile reference limit): <= 0.034 ng/mL Note: Cardiac troponin begins to rise 3-4 hours after the onset of ischemia. Repeat in 4-6 hours if the sample was drawn within 3-4 hours of the onset of the symptom and found normal. Diagnosis of myocardial injury is made with acute changes in cTn concentrations with at least one serial sample above the 99th percentile upper reference limit (URL), taken together with the patient's clinical presentation. Biotin has been reported to cause a negative bias, interpret results relative to patient's use of biotin. Lab Interpretation Abnormal (test code = 83091-6) [facility] [id number] 21:45:49 Test Item Value Reference Range Interpretation Comments PROTIME PATIENT (test 14.3 See_Comment H [Auto mated message] code = 5964-2) The system [facility] generated this result transmitted ref erence range: 10.1 - 1 2.6 Seconds. The reference range was not used to int erpret this result as normal/abnormal . INR (test code = 6301-6) 1.3 Nor mal INR <1.1; Warfarin Therap eutic range 2.0 to 3. 0 or 2.5 to 3.5, dep ending upon the indica tions. Lab Interpretation (test Abnormal code = 34744-6) [facility]49 Test Item Value Reference Range Interpretation Comments APTT Patient (test code = 35 See_Comment [ Automated message] 3173-2) The system [employer] generated this result transmitted ref erence range: 26 - 36 Seconds. The re ference range was not u sed to interpret this result as normal/abnor mal. Lab Interpretation (test Normal code = 70961-8) [facility] / [id number] 21:45:49 Test Item Value Reference Range Interpretation Comments PROTIME PATIENT (test 14.3 See_Comment H [Auto mated message] code = 5964-2) The system [facility] generated this result transmitted ref erence range: 10.1 - 1 2.6 Seconds. The reference range was not used to int erpret this result as normal/abnormal . INR (test code = 6301-6) 1.3 Nor mal INR <1.1; Warfarin Therap eutic range 2.0 to 3. 0 or 2.5 to 3.5, dep ending upon the indica tions. Lab Interpretation (test Abnormal code = 26026-7) [facility] 21:45:49 Test Item Value Reference Range Interpretation Comments APTT Patient (test code = 35 See_Comment [ Automated message] 4623-2) The system [employer] generated this result transmitted ref erence range: 26 - 36 Seconds. The re ference range was not u sed to interpret this result as normal/abnor mal. Lab Interpretation (test Normal code = 29264-8) [facility] METABOLIC PANEL (NA, K, CL, CO2, GLUCOSE, BUN, CREATININE, CA)2023-03-21 21:45:43 Test Item Value Reference Range Interpretation Comments NA (test code = 135 mmol/L 135-145 1364274226) K (test code = 3.4 mmol/L 3.5-5.0 L 8322939798) CL (test code = 86 mmol/L 98-108 L 1519365512) CO2 TOTAL (test code = 38 mmol/L 23-31 H 8017190393) AGAP (test code = 11 2-16 7155836435) BUN (test code = 21 mg/dL 7-23 9033551423) GLUCOSE (test code = 107 mg/dL 70-110 1919348451) CREATININE (test code = 1.13 mg/dL 0.50-1.04 H 2876477890) CALCIUM (test code = 9.4 mg/dL 8.6-10.6 8888728179) eGFR (test code = 50.4 mL/min/1.73m2 8273642386) YENI (test code = YENI) Association of Glomerular Filtration Rate (GFR) and Staging of Kidney Disease* + --+ --+ ------+| GFR (mL/min/1.73 m2) ?| With Kidney Damage ?| ?Without Kidney Damage+ --------+ --------+ +| ?>90 ?| ?Stage one ?| ? Normal ?+ ---+ ---+ -------+| ?60-89 ?| ?Stage two ?| ? Decreased GFR ? + --+ --+ ------+| ?30-59 ?| ?Stage three ?| ? Stage three ? + --+ --+ ------+| ?15-29 ?| ?Stage four ? | ? Stage four ?+ ---+ ---+ -------+| ?<15 (or dialysis) ? ?| ?Stage five ? | ? Stage five ?+ ---+ ---+ -------+ *Each stage assumes the associated GFR level has been in effect for at least three months. ?Stages 1 to 5, with or without kidney disease, indicate chronic kidney disease. Notes: Determination of stages one and two (with eGFR >59mL/min/1.73 m2) requires estimation of kidney damage for at least three months as defined by structural or functional abnormalities of the kidney, manifested by either:Pathological abnormalities or Markers of kidney damage (including abnormalities in the composition of the blood or urine or abnormalities in imaging tests). Lab Interpretation Abnormal (test code = 47330-6) [facility] METABOLIC PANEL (NA, K, CL, CO2, GLUCOSE, BUN, CREATININE, CA)2023-03-21 21:45:43 Test Item Value Reference Range Interpretation Comments NA (test code = 135 mmol/L 135-145 2854215701) K (test code = 3.4 mmol/L 3.5-5.0 L 4984733673) CL (test code = 86 mmol/L 98-108 L 6527647043) CO2 TOTAL (test code = 38 mmol/L 23-31 H 4859995766) AGAP (test code = 11 2-16 3917669851) BUN (test code = 21 mg/dL 7-23 1823889216) GLUCOSE (test code = 107 mg/dL 70-110 5715247147) CREATININE (test code = 1.13 mg/dL 0.50-1.04 H 4634266714) CALCIUM (test code = 9.4 mg/dL 8.6-10.6 0784917848) eGFR (test code = 50.4 mL/min/1.73m2 9113754559) YENI (test code = YENI) Association of Glomerular Filtration Rate (GFR) and Staging of Kidney Disease* + --+ --+ ------+| GFR (mL/min/1.73 m2) ?| With Kidney Damage ?| ?Without Kidney Damage+ --------+ --------+ +| ?>90 ?| ?Stage one ?| ? Normal ?+ ---+ ---+ -------+| ?60-89 ?| ?Stage two ?| ? Decreased GFR ? + --+ --+ ------+| ?30-59 ?| ?Stage three ?| ? Stage three ? + --+ --+ ------+| ?15-29 ?| ?Stage four ? | ? Stage four ?+ ---+ ---+ -------+| ?<15 (or dialysis) ? ?| ?Stage five ? | ? Stage five ?+ ---+ ---+ -------+ *Each stage assumes the associated GFR level has been in effect for at least three months. ?Stages 1 to 5, with or without kidney disease, indicate chronic kidney disease. Notes: Determination of stages one and two (with eGFR >59mL/min/1.73 m2) requires estimation of kidney damage for at least three months as defined by structural or functional abnormalities of the kidney, manifested by either:Pathological abnormalities or Markers of kidney damage (including abnormalities in the composition of the blood or urine or abnormalities in imaging tests). Lab Interpretation Abnormal (test code = 64458-2) [facility] METABOLIC PANEL (NA, K, CL, CO2, GLUCOSE, BUN, CREATININE, CA)2023-03-21 17:33:41 Test Item Value Reference Range Interpretation Comments NA (test code = 134 mmol/L 135-145 L 9165039028) K (test code = 2.5 mmol/L 3.5-5.0 LL 6766740682) CL (test code = 96 mmol/L 98-108 L 2264279208) CO2 TOTAL (test code = 32 mmol/L 23-31 H 1336808621) AGAP (test code = 6 2-16 6363836828) BUN (test code = 18 mg/dL 7-23 [id number]) GLUCOSE (test code = 90 mg/dL 70-110 8898827332) CREATININE (test code = 0.87 mg/dL 0.50-1.04 1101705764) CALCIUM (test code = 7.8 mg/dL 8.6-10.6 L 4200661665) eGFR (test code = 68.1 mL/min/1.73m2 1796831953) YENI (test code = YENI) Association of Glomerular Filtration Rate (GFR) and Staging of Kidney Disease* + --+ --+ ------+| GFR (mL/min/1.73 m2) ?| With Kidney Damage ?| ?Without Kidney Damage+ --------+ --------+ +| ?>90 ?| ?Stage one ?| ? Normal ?+ ---+ ---+ -------+| ?60-89 ?| ?Stage two ?| ? Decreased GFR ? + --+ --+ ------+| ?30-59 ?| ?Stage three ?| ? Stage three ? + --+ --+ ------+| ?15-29 ?| ?Stage four ? | ? Stage four ?+ ---+ ---+ -------+| ?<15 (or dialysis) ? ?| ?Stage five ? | ? Stage five ?+ ---+ ---+ -------+ *Each stage assumes the associated GFR level has been in effect for at least three months. ?Stages 1 to 5, with or without kidney disease, indicate chronic kidney disease. Notes: Determination of stages one and two (with eGFR >59mL/min/1.73 m2) requires estimation of kidney damage for at least three months as defined by structural or functional abnormalities of the kidney, manifested by either:Pathological abnormalities or Markers of kidney damage (including abnormalities in the composition of the blood or urine or abnormalities in imaging tests). Lab Interpretation Abnormal (test code = 40212-9) [facility] METABOLIC PANEL (NA, K, CL, CO2, GLUCOSE, BUN, CREATININE, CA)2023-03-21 17:33:41 Test Item Value Reference Range Interpretation Comments NA (test code = 134 mmol/L 135-145 L 9221456932) K (test code = 2.5 mmol/L 3.5-5.0 LL 2520807572) CL (test code = 96 mmol/L 98-108 L 5365586790) CO2 TOTAL (test code = 32 mmol/L 23-31 H 2335887367) AGAP (test code = 6 2-16 3324990222) BUN (test code = 18 mg/dL 7-23 2679628538) GLUCOSE (test code = 90 mg/dL 70-110 8771209025) CREATININE (test code = 0.87 mg/dL 0.50-1.04 0479794646) CALCIUM (test code = 7.8 mg/dL 8.6-10.6 L 2934443841) eGFR (test code = 68.1 mL/min/1.73m2 0386987528) YENI (test code = YENI) Association of Glomerular Filtration Rate (GFR) and Staging of Kidney Disease* + --+ --+ ------+| GFR (mL/min/1.73 m2) ?| With Kidney Damage ?| ?Without Kidney Damage+ --------+ --------+ +| ?>90 ?| ?Stage one ?| ? Normal ?+ ---+ ---+ -------+| ?60-89 ?| ?Stage two ?| ? Decreased GFR ? + --+ --+ ------+| ?30-59 ?| ?Stage three ?| ? Stage three ? + --+ --+ ------+| ?15-29 ?| ?Stage four ? | ? Stage four ?+ ---+ ---+ -------+| ?<15 (or dialysis) ? ?| ?Stage five ? | ? Stage five ?+ ---+ ---+ -------+ *Each stage assumes the associated GFR level has been in effect for at least three months. ?Stages 1 to 5, with or without kidney disease, indicate chronic kidney disease. Notes: Determination of stages one and two (with eGFR >59mL/min/1.73 m2) requires estimation of kidney damage for at least three months as defined by structural or functional abnormalities of the kidney, manifested by either:Pathological abnormalities or Markers of kidney damage (including abnormalities in the composition of the blood or urine or abnormalities in imaging tests). Lab Interpretation Abnormal (test code = 63348-5) [facility] Test Item Value Reference Range Interpretation Comments MAGNESIUM (test code = 8179579771) 1.9 mg/dL 1.7-2.4 Lab Interpretation (test code = Normal 54826-7) [facility]31[facility]28 Test Item Value Reference Range Interpretation Comments MAGNESIUM (test code = 5597266876) 1.9 mg/dL 1.7-2.4 Lab Interpretation (test code = Normal 85320-6) [facility] (ALB,T.PRO,BILI T,BU/BC,ALT,AST,ALK PHOS)2023-03-21 17:12:46 Test Item Value Reference Range Interpretation Comments TOTAL BILI (test code = 4143232278) 2.3 mg/dL 0.1-1.1 H BILI UNCON (test code = 9086812471) 1.4 mg/dL 0.1-1.1 H BILI CONJ (test code = 5095838618) 0.0 mg/dL 0.0-0.3 T PROTEIN (test code = 2561762761) 6.8 g/dL 6.3-8.2 ALBUMIN (test code = 8014509571) 3.0 g/dL 3.5-5.0 L ALK PHOS (test code = 3091022503) 106 U/L 34-122 ALTv (test code = 1742-6) 34 U/L 5-35 AST(SGOT) (test code = 7498042309) 52 U/L 13-40 H Lab Interpretation (test code = Abnormal 49704-5) [facility] (ALB,T.PRO,BILI T,BU/BC,ALT,AST,ALK PHOS)2023-03-21 17:12:46 Test Item Value Reference Range Interpretation Comments TOTAL BILI (test code = 1025298387) 2.3 mg/dL 0.1-1.1 H BILI UNCON (test code = 2242796534) 1.4 mg/dL 0.1-1.1 H BILI CONJ (test code = 9573937511) 0.0 mg/dL 0.0-0.3 T PROTEIN (test code = 7862665122) 6.8 g/dL 6.3-8.2 ALBUMIN (test code = 5217342573) 3.0 g/dL 3.5-5.0 L ALK PHOS (test code = 8151978074) 106 U/L 34-122 ALTv (test code = 1742-6) 34 U/L 5-35 AST(SGOT) (test code = 0647486117) 52 U/L 13-40 H Lab Interpretation (test code = Abnormal 19227-8) [facility] 12:57:27 Test Item Value Reference Range Interpretation Comments POCT GLU (test code = 132 mg/dL 70-110 H Notifi ed Provider [id number]) Lab Interpretation (test Abnormal code = 69273-7) [facility] 12:57:27 Test Item Value Reference Range Interpretation Comments POCT GLU (test code = 132 mg/dL 70-110 H Notifi ed Provider [id number]) Lab Interpretation (test Abnormal code = 46735-0) [facility] METABOLIC PANEL (NA, K, CL, CO2, GLUCOSE, BUN, CREATININE, CA)2023-03-21 11:42:15 Test Item Value Reference Range Interpretation Comments NA (test code = 133 mmol/L 135-145 L 8420470896) K (test code = 2.7 mmol/L 3.5-5.0 LL 6607710123) CL (test code = 92 mmol/L 98-108 L 0513118301) CO2 TOTAL (test code = 31 mmol/L 23-31 9487452291) AGAP (test code = 10 2-16 5156555260) BUN (test code = 22 mg/dL 7-23 1145036878) GLUCOSE (test code = 80 mg/dL 70-110 8336124386) CREATININE (test code = 1.12 mg/dL 0.50-1.04 H 2063265603) CALCIUM (test code = 8.6 mg/dL 8.6-10.6 7356045320) eGFR (test code = 50.9 mL/min/1.73m2 6553352925) YENI (test code = YENI) Association of Glomerular Filtration Rate (GFR) and Staging of Kidney Disease* + --+ --+ ------+| GFR (mL/min/1.73 m2) ?| With Kidney Damage ?| ?Without Kidney Damage+ --------+ --------+ +| ?>90 ?| ?Stage one ?| ? Normal ?+ ---+ ---+ -------+| ?60-89 ?| ?Stage two ?| ? Decreased GFR ? + --+ --+ ------+| ?30-59 ?| ?Stage three ?| ? Stage three ? + --+ --+ ------+| ?15-29 ?| ?Stage four ? | ? Stage four ?+ ---+ ---+ -------+| ?<15 (or dialysis) ? ?| ?Stage five ? | ? Stage five ?+ ---+ ---+ -------+ *Each stage assumes the associated GFR level has been in effect for at least three months. ?Stages 1 to 5, with or without kidney disease, indicate chronic kidney disease. Notes: Determination of stages one and two (with eGFR >59mL/min/1.73 m2) requires estimation of kidney damage for at least three months as defined by structural or functional abnormalities of the kidney, manifested by either:Pathological abnormalities or Markers of kidney damage (including abnormalities in the composition of the blood or urine or abnormalities in imaging tests). Lab Interpretation Abnormal (test code = 93819-2) [facility] METABOLIC PANEL (NA, K, CL, CO2, GLUCOSE, BUN, CREATININE, CA)2023-03-21 11:42:15 Test Item Value Reference Range Interpretation Comments NA (test code = 133 mmol/L 135-145 L 9376910143) K (test code = 2.7 mmol/L 3.5-5.0 LL 6757380689) CL (test code = 92 mmol/L 98-108 L 3697983903) CO2 TOTAL (test code = 31 mmol/L 23-31 2952289933) AGAP (test code = 10 2-16 4254691228) BUN (test code = 22 mg/dL 7-23 2294748422) GLUCOSE (test code = 80 mg/dL 70-110 6348521049) CREATININE (test code = 1.12 mg/dL 0.50-1.04 H 6227836428) CALCIUM (test code = 8.6 mg/dL 8.6-10.6 8670025484) eGFR (test code = 50.9 mL/min/1.73m2 8893145756) YENI (test code = YENI) Association of Glomerular Filtration Rate (GFR) and Staging of Kidney Disease* + --+ --+ ------+| GFR (mL/min/1.73 m2) ?| With Kidney Damage ?| ?Without Kidney Damage+ --------+ --------+ +| ?>90 ?| ?Stage one ?| ? Normal ?+ ---+ ---+ -------+| ?60-89 ?| ?Stage two ?| ? Decreased GFR ? + --+ --+ ------+| ?30-59 ?| ?Stage three ?| ? Stage three ? + --+ --+ ------+| ?15-29 ?| ?Stage four ? | ? Stage four ?+ ---+ ---+ -------+| ?<15 (or dialysis) ? ?| ?Stage five ? | ? Stage five ?+ ---+ ---+ -------+ *Each stage assumes the associated GFR level has been in effect for at least three months. ?Stages 1 to 5, with or without kidney disease, indicate chronic kidney disease. Notes: Determination of stages one and two (with eGFR >59mL/min/1.73 m2) requires estimation of kidney damage for at least three months as defined by structural or functional abnormalities of the kidney, manifested by either:Pathological abnormalities or Markers of kidney damage (including abnormalities in the composition of the blood or urine or abnormalities in imaging tests). Lab Interpretation Abnormal (test code = 56898-0) [facility] Test Item Value Reference Range Interpretation Comments MAGNESIUM (test code = 2354826890) 1.5 mg/dL 1.7-2.4 L Lab Interpretation (test code = Abnormal 64923-2) [facility] Test Item Value Reference Range Interpretation Comments MAGNESIUM (test code = 7104453057) 1.5 mg/dL 1.7-2.4 L Lab Interpretation (test code = Abnormal 22416-6) [facility] WITH [id number] 10:28:33 Test Item Value Reference Range Interpretation Comments WBC (test code = 6.90 See_Comment [Automated 2390-2) message] The sy stem which generated this result transmitted reference range : 4.30 - 11.10 10*3/?L. The reference range was not used to interpret this result as normal/abnormal . RBC (test code = 3.61 See_Comment L [Automated 774-8) message] The sy stem which generated this result transmitted reference range : 3.93 - 5.25 10*6/?L. The reference range was not used to interpret this result as normal/abnormal . HGB (test code = 11.5 g/dL 11.6-15.0 L 718-7) HCT (test code = 33.7 % 35.7-45.2 L 4544-3) MCV (test code = 93.4 fL 80.6-95.5 787-2) MCH (test code = 31.9 pg 25.9-32.8 785-6) MCHC (test code = 34.1 g/dL 31.6-35.1 786-4) RDW-SD (test code = 54.4 fL 39.0-49.9 H 99069-6) RDW-CV (test code = 17.1 % 12.0-15.5 H 788-0) PLT (test code = 108 See_Comment L [Automated 777-3) message] The sy stem which generated this result transmitted reference range : 166 - 358 10*3/ ?L. The reference r raimundo was not used to interpret this result as normal/abnormal . MPV (test code = 12.5 fL 9.5-12.9 40486-8) NRBC/100 WBC (test 0.0 See_Comment [Automat ed code = 1191777004) message] The system which generated this result transmitted reference range : 0.0 - 10.0 /100 WBCs. The refer ence range was not u sed to interpret th is result as normal/abnormal . NRBC x10^3 (test code See_Comment [Auto mated = 6850554014) message] The s ystem which generated this result transmitted reference range : 10*3/?L. The reference range was not used to interpret this result as normal/abnormal . GRAN MAT (NEUT) % 68.9 % (test code = 770-8) IMM GRAN % (test code 0.90 % = 8504554175) LYMPH % (test code = 11.9 % 736-9) MONO % (test code = 14.3 % 5905-5) EOS % (test code = 2.8 % 713-8) BASO % (test code = 1.2 % 706-2) GRAN MAT x10^3(ANC) 4.76 10*3/uL 1.88-7.09 (test code = 2260450583) IMM GRAN x10^3 (test 0.06 10*3/uL 0.00-0.06 code = 8549553058) LYMPH x10^3 (test code 0.82 10*3/uL 1.32-3.29 L = 731-0) MONO x10^3 (test code 0.99 10*3/uL 0.33-0.92 H = 742-7) EOS x10^3 (test code = 0.19 10*3/uL 0.03-0.39 711-2) BASO x10^3 (test code 0.08 10*3/uL 0.01-0.07 H = 704-7) Lab Interpretation Abnormal (test code = 28787-9) [facility] WITH [id number] 10:28:33 Test Item Value Reference Range Interpretation Comments WBC (test code = 6.90 See_Comment [Automated 6690-2) message] The sy stem which generated this result transmitted reference range : 4.30 - 11.10 10*3/?L. The reference range was not used to interpret this result as normal/abnormal . RBC (test code = 3.61 See_Comment L [Automated 789-8) message] The sy stem which generated this result transmitted reference range : 3.93 - 5.25 10*6/?L. The reference range was not used to interpret this result as normal/abnormal . HGB (test code = 11.5 g/dL 11.6-15.0 L 718-7) HCT (test code = 33.7 % 35.7-45.2 L 4544-3) MCV (test code = 93.4 fL 80.6-95.5 787-2) MCH (test code = 31.9 pg 25.9-32.8 785-6) MCHC (test code = 34.1 g/dL 31.6-35.1 786-4) RDW-SD (test code = 54.4 fL 39.0-49.9 H 36003-3) RDW-CV (test code = 17.1 % 12.0-15.5 H 788-0) PLT (test code = 108 See_Comment L [Automated 777-3) message] The sy stem which generated this result transmitted reference range : 166 - 358 10*3/ ?L. The reference r raimundo was not used to interpret this result as normal/abnormal . MPV (test code = 12.5 fL 9.5-12.9 87340-2) NRBC/100 WBC (test 0.0 See_Comment [Automat ed code = 6470282706) message] The system which generated this result transmitted reference range : 0.0 - 10.0 /100 WBCs. The refer ence range was not u sed to interpret th is result as normal/abnormal . NRBC x10^3 (test code See_Comment [Auto mated = 4973246123) message] The s ystem which generated this result transmitted reference range : 10*3/?L. The reference range was not used to interpret this result as normal/abnormal . GRAN MAT (NEUT) % 68.9 % (test code = 770-8) IMM GRAN % (test code 0.90 % = 8242853756) LYMPH % (test code = 11.9 % 736-9) MONO % (test code = 14.3 % 5905-5) EOS % (test code = 2.8 % 713-8) BASO % (test code = 1.2 % 706-2) GRAN MAT x10^3(ANC) 4.76 10*3/uL 1.88-7.09 (test code = 8014967816) IMM GRAN x10^3 (test 0.06 10*3/uL 0.00-0.06 code = 3249359945) LYMPH x10^3 (test code 0.82 10*3/uL 1.32-3.29 L = 731-0) MONO x10^3 (test code 0.99 10*3/uL 0.33-0.92 H = 742-7) EOS x10^3 (test code = 0.19 10*3/uL 0.03-0.39 711-2) BASO x10^3 (test code 0.08 10*3/uL 0.01-0.07 H = 704-7) Lab Interpretation Abnormal (test code = 10882-5) [facility] [id number] 17:19:43 Test Item Value Reference Range Interpretation Comments HIV 0.12 Negative Semi-quantitative (test code = 83073-7) YENI (test code = Non-reactive for HIV-1 YENI) antigen and HIV-1/HIV-2 antibodies. ?No laboratory evidence of HIV infection. ?Repeat in 2-4 weeks if acute HIV infection is suspected. [facility] WITH [id number] 17:19:43 Test Item Value Reference Range Interpretation Comments HIV 0.12 Negative Semi-quantitative (test code = 77834-3) YENI (test code = Non-reactive for HIV-1 YENI) antigen and HIV-1/HIV-2 antibodies. ?No laboratory evidence of HIV infection. ?Repeat in 2-4 weeks if acute HIV infection is suspected. [facility] [id number] 17:07:38 Test Item Value Reference Range Interpretation Comments TROPONIN I (test code = 0.117 ng/mL <=0.034 H 6108514081) YENI (test code = YENI) Reference (Normal) Range (defined by the 99th percentile reference limit): <= 0.034 ng/mL Note: Cardiac troponin begins to rise 3-4 hours after the onset of ischemia. Repeat in 4-6 hours if the sample was drawn within 3-4 hours of the onset of the symptom and found normal. Diagnosis of myocardial injury is made with acute changes in cTn concentrations with at least one serial sample above the 99th percentile upper reference limit (URL), taken together with the patient's clinical presentation. Biotin has been reported to cause a negative bias, interpret results relative to patient's use of biotin. Lab Interpretation Abnormal (test code = 25890-4) [facility] [id number] 17:07:38 Test Item Value Reference Range Interpretation Comments TROPONIN I (test code = 0.117 ng/mL <=0.034 H 1363405654) YENI (test code = YENI) Reference (Normal) Range (defined by the 99th percentile reference limit): <= 0.034 ng/mL Note: Cardiac troponin begins to rise 3-4 hours after the onset of ischemia. Repeat in 4-6 hours if the sample was drawn within 3-4 hours of the onset of the symptom and found normal. Diagnosis of myocardial injury is made with acute changes in cTn concentrations with at least one serial sample above the 99th percentile upper reference limit (URL), taken together with the patient's clinical presentation. Biotin has been reported to cause a negative bias, interpret results relative to patient's use of biotin. Lab Interpretation Abnormal (test code = 03681-4) [facility] [id number] 13:37:24 Test Item Value Reference Range Interpretation Comments TROPONIN I (test code = 0.136 ng/mL <=0.034 H 3137870620) YENI (test code = YENI) Reference (Normal) Range (defined by the 99th percentile reference limit): <= 0.034 ng/mL Note: Cardiac troponin begins to rise 3-4 hours after the onset of ischemia. Repeat in 4-6 hours if the sample was drawn within 3-4 hours of the onset of the symptom and found normal. Diagnosis of myocardial injury is made with acute changes in cTn concentrations with at least one serial sample above the 99th percentile upper reference limit (URL), taken together with the patient's clinical presentation. Biotin has been reported to cause a negative bias, interpret results relative to patient's use of biotin. Lab Interpretation Abnormal (test code = 45472-1) [facility] [id number] 13:37:24 Test Item Value Reference Range Interpretation Comments TROPONIN I (test code = 0.136 ng/mL <=0.034 H 8525669230) YENI (test code = YENI) Reference (Normal) Range (defined by the 99th percentile reference limit): <= 0.034 ng/mL Note: Cardiac troponin begins to rise 3-4 hours after the onset of ischemia. Repeat in 4-6 hours if the sample was drawn within 3-4 hours of the onset of the symptom and found normal. Diagnosis of myocardial injury is made with acute changes in cTn concentrations with at least one serial sample above the 99th percentile upper reference limit (URL), taken together with the patient's clinical presentation. Biotin has been reported to cause a negative bias, interpret results relative to patient's use of biotin. Lab Interpretation Abnormal (test code = 78126-4) [facility] WITH [id number] 12:34:44 Test Item Value Reference Range Interpretation Comments WBC (test code = 6.85 See_Comment [Automated 0690-2) message] The sy stem which generated this result transmitted reference range : 4.30 - 11.10 10*3/?L. The reference range was not used to interpret this result as normal/abnormal . RBC (test code = 3.60 See_Comment L [Automated 789-8) message] The sy stem which generated this result transmitted reference range : 3.93 - 5.25 10*6/?L. The reference range was not used to interpret this result as normal/abnormal . HGB (test code = 11.4 g/dL 11.6-15.0 L 718-7) HCT (test code = 34.2 % 35.7-45.2 L 4544-3) MCV (test code = 95.0 fL 80.6-95.5 787-2) MCH (test code = 31.7 pg 25.9-32.8 785-6) MCHC (test code = 33.3 g/dL 31.6-35.1 786-4) RDW-SD (test code = 57.2 fL 39.0-49.9 H 90288-9) RDW-CV (test code = 17.2 % 12.0-15.5 H 788-0) PLT (test code = 78 See_Comment L [Automated 777-3) message] The sy stem which generated this result transmitted reference range : 166 - 358 10*3/ ?L. The reference r raimundo was not used to interpret this result as normal/abnormal . MPV (test code = 12.4 fL 9.5-12.9 45556-1) IPF % (test code = 9.7 % 1.3-7.7 H Platelet count 1403541439) measured by fluorescence method. NRBC/100 WBC (test 0.0 See_Comment [Automat ed code = 3611955762) message] The system which generated this result transmitted reference range : 0.0 - 10.0 /100 WBCs. The refer ence range was not u sed to interpret th is result as normal/abnormal . NRBC x10^3 (test code See_Comment [Auto mated = 4489866792) message] The s ystem which generated this result transmitted reference range : 10*3/?L. The reference range was not used to interpret this result as normal/abnormal . GRAN MAT (NEUT) % 76.0 % (test code = 770-8) IMM GRAN % (test code 1.00 % = 7475601122) LYMPH % (test code = 9.1 % 736-9) MONO % (test code = 10.7 % 5905-5) EOS % (test code = 2.2 % 713-8) BASO % (test code = 1.0 % 706-2) GRAN MAT x10^3(ANC) 5.21 10*3/uL 1.88-7.09 (test code = 0713773590) IMM GRAN x10^3 (test 0.07 10*3/uL 0.00-0.06 H code = 8691441472) LYMPH x10^3 (test code 0.62 10*3/uL 1.32-3.29 L = 731-0) MONO x10^3 (test code 0.73 10*3/uL 0.33-0.92 = 742-7) EOS x10^3 (test code = 0.15 10*3/uL 0.03-0.39 711-2) BASO x10^3 (test code 0.07 10*3/uL 0.01-0.07 = 704-7) DAVID CELLS (test code 2+ See_Comment A [Auto mated = 2690-9) message] The sy stem which generated this result transmitted reference range : (none). The reference range was not used to interpret this result as normal/abnormal . Lab Interpretation Abnormal (test code = 30036-5) [facility] WITH [id number] 12:34:44 Test Item Value Reference Range Interpretation Comments WBC (test code = 6.85 See_Comment [Automated 3590-2) message] The sy stem which generated this result transmitted reference range : 4.30 - 11.10 10*3/?L. The reference range was not used to interpret this result as normal/abnormal . RBC (test code = 3.60 See_Comment L [Automated 119-8) message] The sy stem which generated this result transmitted reference range : 3.93 - 5.25 10*6/?L. The reference range was not used to interpret this result as normal/abnormal . HGB (test code = 11.4 g/dL 11.6-15.0 L 718-7) HCT (test code = 34.2 % 35.7-45.2 L 4544-3) MCV (test code = 95.0 fL 80.6-95.5 787-2) MCH (test code = 31.7 pg 25.9-32.8 785-6) MCHC (test code = 33.3 g/dL 31.6-35.1 786-4) RDW-SD (test code = 57.2 fL 39.0-49.9 H 47381-8) RDW-CV (test code = 17.2 % 12.0-15.5 H 788-0) PLT (test code = 78 See_Comment L [Automated 777-3) message] The sy stem which generated this result transmitted reference range : 166 - 358 10*3/ ?L. The reference r raimundo was not used to interpret this result as normal/abnormal . MPV (test code = 12.4 fL 9.5-12.9 26750-6) IPF % (test code = 9.7 % 1.3-7.7 H Platelet count 1716144230) measured by fluorescence method. NRBC/100 WBC (test 0.0 See_Comment [Automat ed code = 9015155284) message] The system which generated this result transmitted reference range : 0.0 - 10.0 /100 WBCs. The refer ence range was not u sed to interpret th is result as normal/abnormal . NRBC x10^3 (test code See_Comment [Auto mated = 7871200613) message] The s ystem which generated this result transmitted reference range : 10*3/?L. The reference range was not used to interpret this result as normal/abnormal . GRAN MAT (NEUT) % 76.0 % (test code = 770-8) IMM GRAN % (test code 1.00 % = 1877685970) LYMPH % (test code = 9.1 % 736-9) MONO % (test code = 10.7 % 5905-5) EOS % (test code = 2.2 % 713-8) BASO % (test code = 1.0 % 706-2) GRAN MAT x10^3(ANC) 5.21 10*3/uL 1.88-7.09 (test code = 2962733717) IMM GRAN x10^3 (test 0.07 10*3/uL 0.00-0.06 H code = 4603406055) LYMPH x10^3 (test code 0.62 10*3/uL 1.32-3.29 L = 731-0) MONO x10^3 (test code 0.73 10*3/uL 0.33-0.92 = 742-7) EOS x10^3 (test code = 0.15 10*3/uL 0.03-0.39 711-2) BASO x10^3 (test code 0.07 10*3/uL 0.01-0.07 = 704-7) DAVID CELLS (test code 2+ See_Comment A [Auto mated = 5657-) message] The sy stem which generated this result transmitted reference range : (none). The reference range was not used to interpret this result as normal/abnormal . Lab Interpretation Abnormal (test code = 95554-7) [facility] METABOLIC PANEL (NA, K, CL, CO2, GLUCOSE, BUN, CREATININE, CA)2023-03-20 12:27:07 Test Item Value Reference Range Interpretation Comments NA (test code = 135 mmol/L 135-145 2009301398) K (test code = 3.7 mmol/L 3.5-5.0 7896126608) CL (test code = 101 mmol/L 98-108 7692145332) CO2 TOTAL (test code = 23 mmol/L 23-31 2832001930) AGAP (test code = 11 2-16 1409799402) BUN (test code = 24 mg/dL 7-23 H 4480007129) GLUCOSE (test code = 83 mg/dL 70-110 7235876087) CREATININE (test code = 1.29 mg/dL 0.50-1.04 H 3762099666) CALCIUM (test code = 8.8 mg/dL 8.6-10.6 2296245952) eGFR (test code = 43.2 mL/min/1.73m2 1842804681) YENI (test code = YENI) Association of Glomerular Filtration Rate (GFR) and Staging of Kidney Disease* + --+ --+ ------+| GFR (mL/min/1.73 m2) ?| With Kidney Damage ?| ?Without Kidney Damage+ --------+ --------+ +| ?>90 ?| ?Stage one ?| ? Normal ?+ ---+ ---+ -------+| ?60-89 ?| ?Stage two ?| ? Decreased GFR ? + --+ --+ ------+| ?30-59 ?| ?Stage three ?| ? Stage three ? + --+ --+ ------+| ?15-29 ?| ?Stage four ? | ? Stage four ?+ ---+ ---+ -------+| ?<15 (or dialysis) ? ?| ?Stage five ? | ? Stage five ?+ ---+ ---+ -------+ *Each stage assumes the associated GFR level has been in effect for at least three months. ?Stages 1 to 5, with or without kidney disease, indicate chronic kidney disease. Notes: Determination of stages one and two (with eGFR >59mL/min/1.73 m2) requires estimation of kidney damage for at least three months as defined by structural or functional abnormalities of the kidney, manifested by either:Pathological abnormalities or Markers of kidney damage (including abnormalities in the composition of the blood or urine or abnormalities in imaging tests). Lab Interpretation Abnormal (test code = 60648-4) [facility] METABOLIC PANEL (NA, K, CL, CO2, GLUCOSE, BUN, CREATININE, CA)2023-03-20 12:27:07 Test Item Value Reference Range Interpretation Comments NA (test code = 135 mmol/L 135-145 3072376183) K (test code = 3.7 mmol/L 3.5-5.0 1294377807) CL (test code = 101 mmol/L 98-108 7424074943) CO2 TOTAL (test code = 23 mmol/L 23-31 1363236161) AGAP (test code = 11 2-16 6396400282) BUN (test code = 24 mg/dL 7-23 H 0118444625) GLUCOSE (test code = 83 mg/dL 70-110 6213670011) CREATININE (test code = 1.29 mg/dL 0.50-1.04 H 1396117215) CALCIUM (test code = 8.8 mg/dL 8.6-10.6 1373284101) eGFR (test code = 43.2 mL/min/1.73m2 1340490982) YENI (test code = YENI) Association of Glomerular Filtration Rate (GFR) and Staging of Kidney Disease* + --+ --+ ------+| GFR (mL/min/1.73 m2) ?| With Kidney Damage ?| ?Without Kidney Damage+ --------+ --------+ +| ?>90 ?| ?Stage one ?| ? Normal ?+ ---+ ---+ -------+| ?60-89 ?| ?Stage two ?| ? Decreased GFR ? + --+ --+ ------+| ?30-59 ?| ?Stage three ?| ? Stage three ? + --+ --+ ------+| ?15-29 ?| ?Stage four ? | ? Stage four ?+ ---+ ---+ -------+| ?<15 (or dialysis) ? ?| ?Stage five ? | ? Stage five ?+ ---+ ---+ -------+ *Each stage assumes the associated GFR level has been in effect for at least three months. ?Stages 1 to 5, with or without kidney disease, indicate chronic kidney disease. Notes: Determination of stages one and two (with eGFR >59mL/min/1.73 m2) requires estimation of kidney damage for at least three months as defined by structural or functional abnormalities of the kidney, manifested by either:Pathological abnormalities or Markers of kidney damage (including abnormalities in the composition of the blood or urine or abnormalities in imaging tests). Lab Interpretation Abnormal (test code = 83672-1) [facility]2023-08-16 12:17:19 Test Item Value Reference Range Interpretation Comments MAGNESIUM (test code = 3013355341) 1.6 mg/dL 1.7-2.4 L Lab Interpretation (test code = Abnormal 48021-8) [facility]19 Test Item Value Reference Range Interpretation Comments MAGNESIUM (test code = 1356817184) 1.6 mg/dL 1.7-2.4 L Lab Interpretation (test code = Abnormal 99910-5) [facility] Xjmgh4191-23-37 17:04:19 Test Item Value Reference Range Interpretation Comments LACTIC ACID (test code = 2.35 mmol/L 0.50-2.20 H 0057556279) Lab Interpretation (test code = Abnormal 41830-5) [facility] Whole Ljkqb5848-02-45 17:04:19 Test Item Value Reference Range Interpretation Comments LACTIC ACID (test code = 2.35 mmol/L 0.50-2.20 H 0867680988) Lab Interpretation (test code = Abnormal 39168-8) [facility]in Nnzga8267-09-08 15:11:49 Test Item Value Reference Range Interpretation Comments FERRITIN (test code = 94.0 ng/mL 11.0-264.0 8380668179) YENI (test code = YENI) Biotin has been reported to cause a negative bias, interpret results relative to patient's use of biotin. Lab Interpretation (test Normal code = 02643-5) [facility] CenterFer[facility]in Untni1365-82-48 15:11:49 Test Item Value Reference Range Interpretation Comments FERRITIN (test code = 94.0 ng/mL 11.0-264.0 5348245257) YENI (test code = YENI) Biotin has been reported to cause a negative bias, interpret results relative to patient's use of biotin. Lab Interpretation (test Normal code = 01884-4) [facility] Ocssi7228[facility] 14:37:02 Test Item Value Reference Range Interpretation Comments IRON (test code = 2994748897) 92 ug/dL 50-160 TIBC (test code = 2439736789) 317 ug/dL 250-410 % FE SAT (test code = 6818676375) 29 % 20-50 Lab Interpretation (test code = Normal 88144-3) [facility] Vqrom5944-83-86 14:37:02 Test Item Value Reference Range Interpretation Comments IRON (test code = 8159842927) 92 ug/dL 50-160 TIBC (test code = 7723095311) 317 ug/dL 250-410 % FE SAT (test code = 2810834438) 29 % 20-50 Lab Interpretation (test code = Normal 28960-0) [facility] 14:27:39 Test Item Value Reference Range Interpretation Comments MAGNESIUM (test code = 4626404917) 1.7 mg/dL 1.7-2.4 Lab Interpretation (test code = Normal 65212-2) [facility]osph[facility]2023-[facility] 14:27:39 Test Item Value Reference Range Interpretation Comments PHOSPHORUS (test code = 6001773281) 4.2 mg/dL 2.5-5.0 Lab Interpretation (test code = Normal 09682-7) [facility] Metabolic Panel (NA, K, CL, CO2, GLUCOSE, BUN, CREATININE, CA)2023-03-19 14:27:39 Test Item Value Reference Range Interpretation Comments NA (test code = 136 mmol/L 135-145 9222036207) K (test code = 4.4 mmol/L 3.5-5.0 Slight 8333893983) hemolysis CL (test code = 107 mmol/L 98-108 3447285296) CO2 TOTAL (test code 18 mmol/L 23-31 L = 8111918069) AGAP (test code = 11 2-16 7908336790) BUN (test code = 20 mg/dL 7-23 Slight 6453646348) hemolysis GLUCOSE (test code = 86 mg/dL 70-110 6290609271) CREATININE (test code 1.28 mg/dL 0.50-1.04 H = 1941695075) CALCIUM (test code = 8.1 mg/dL 8.6-10.6 L 9837107091) eGFR (test code = 43.6 mL/min/1.73m2 6034061708) YENI (test code = YENI) Association of Glomerular Filtration Rate (GFR) and Staging of Kidney Disease* + -----+ --------+ +| GFR (mL/min/1.73 m2) ?| With Kidney Damage ?| ?Without Kidney Damage+ +------- +---- --+| ?>90 ?| ?Stage one ?| ? Normal ?+ ------+ ---------+--------- +| ?60-89 ?| ?Stage two ?| ? Decreased GFR ? + -----+ --------+ +| ?30-59 ?| ?Stage three ?| ? Stage three ? + -----+ --------+ +| ?15-29 ?| ?Stage four ? | ? Stage four ?+ ------+ ---------+--------- +| ?<15 (or dialysis) ? ?| ?Stage five ? | ? Stage five ?+ ------+ ---------+--------- + *Each stage assumes the associated GFR level has been in effect for at least three months. ?Stages 1 to 5, with or without kidney disease, indicate chronic kidney disease. Notes: Determination of stages one and two (with eGFR >59mL/min/1.73 m2) requires estimation of kidney damage for at least three months as defined by structural or functional abnormalities of the kidney, manifested by either:Pathological abnormalities or Markers of kidney damage (including abnormalities in the composition of the blood or urine or abnormalities in imaging tests). Lab Interpretation Abnormal (test code = 08413-9) [facility] 14:27:39 Test Item Value Reference Range Interpretation Comments MAGNESIUM (test code = 8350456798) 1.7 mg/dL 1.7-2.4 Lab Interpretation (test code = Normal 16261-4) [facility] 14:27:39 Test Item Value Reference Range Interpretation Comments PHOSPHORUS (test code = 9298592015) 4.2 mg/dL 2.5-5.0 Lab Interpretation (test code = Normal 02464-6) [facility] CenterBasi Met[facility] (NA, K, CL, CO2, GLUCOSE, BUN, CREATININE, CA)2023-03-19 14:27:39 Test Item Value Reference Range Interpretation Comments NA (test code = 136 mmol/L 135-145 8459774571) K (test code = 4.4 mmol/L 3.5-5.0 Slight 0145066266) hemolysis CL (test code = 107 mmol/L 98-108 8108177807) CO2 TOTAL (test code 18 mmol/L 23-31 L = 6282879897) AGAP (test code = 11 2-16 5593557227) BUN (test code = 20 mg/dL 7-23 Slight 2384496567) hemolysis GLUCOSE (test code = 86 mg/dL 70-110 6780069324) CREATININE (test code 1.28 mg/dL 0.50-1.04 H = 7150017914) CALCIUM (test code = 8.1 mg/dL 8.6-10.6 L 0072489498) eGFR (test code = 43.6 mL/min/1.73m2 5389649736) YENI (test code = YENI) Association of Glomerular Filtration Rate (GFR) and Staging of Kidney Disease* + -----+ --------+ +| GFR (mL/min/1.73 m2) ?| With Kidney Damage ?| ?Without Kidney Damage+ +------- +---- --+| ?>90 ?| ?Stage one ?| ? Normal ?+ ------+ ---------+--------- +| ?60-89 ?| ?Stage two ?| ? Decreased GFR ? + -----+ --------+ +| ?30-59 ?| ?Stage three ?| ? Stage three ? + -----+ --------+ +| ?15-29 ?| ?Stage four ? | ? Stage four ?+ ------+ ---------+--------- +| ?<15 (or dialysis) ? ?| ?Stage five ? | ? Stage five ?+ ------+ ---------+--------- + *Each stage assumes the associated GFR level has been in effect for at least three months. ?Stages 1 to 5, with or without kidney disease, indicate chronic kidney disease. Notes: Determination of stages one and two (with eGFR >59mL/min/1.73 m2) requires estimation of kidney damage for at least three months as defined by structural or functional abnormalities of the kidney, manifested by either:Pathological abnormalities or Markers of kidney damage (including abnormalities in the composition of the blood or urine or abnormalities in imaging tests). Lab Interpretation Abnormal (test code = 68671-6) [facility] Arterial Blood Gas.2023-03-19 14:07:41 Test Item Value Reference Range Interpretation Comments PH (test code = 2) 7.43 7.35-7.45 PCO2 (test code = 24 See_Comment L [Automate d message] 9718393561) The system Diar[employer] generated this result transmitted ref erence range: 35 - 45 mmHg. The reference r raimundo was not used to interpret this result as normal/abnor mal. PO2 (test code = 68 See_Comment L [Automated message] 8590356760) The system Diar[employer] generated this result transmitted ref erence range: 80 - 100 mmHg. The reference r raimundo was not used to interpret this result as normal/abnor mal. HCO3 (test code = 15 See_Comment L [Automate d message] 3126709222) The system Diar[employer] generated this result transmitted ref erence range: 22 - 26 mEq/L. The reference r raimundo was not used to interpret this result as normal/abnor mal. BE (test code = -7.5 See_Comment L [Automated message] 6434713566) The system Diar[employer] generated this result transmitted ref erence range: -3.0 - 3 .0 mEq/L. The refe rence range was not u sed to interpret this result as normal/abnor mal. Lab Interpretation (test Abnormal code = 52038-4) [facility] Arterial Blood Gas.2023-03-19 14:07:41 Test Item Value Reference Range Interpretation Comments PH (test code = 2) 7.43 7.35-7.45 PCO2 (test code = 24 See_Comment L [Automate d message] 3116388308) The system Diar[employer] generated this result transmitted ref erence range: 35 - 45 mmHg. The reference r raimundo was not used to interpret this result as normal/abnor mal. PO2 (test code = 68 See_Comment L [Automated message] 2924898158) The system Diar[employer] generated this result transmitted ref erence range: 80 - 100 mmHg. The reference r raimundo was not used to interpret this result as normal/abnor mal. HCO3 (test code = 15 See_Comment L [Automate d message] 9953851164) The system Diar[employer] generated this result transmitted ref erence range: 22 - 26 mEq/L. The reference r raimundo was not used to interpret this result as normal/abnor mal. BE (test code = -7.5 See_Comment L [Automated message] 3758282017) The system Diar[employer] generated this result transmitted ref erence range: -3.0 - 3 .0 mEq/L. The refe rence range was not u sed to interpret this result as normal/abnor mal. Lab Interpretation (test Abnormal code = 18943-9) [facility] CenterLautic Acid Whole Wctiw6418-57-21 13:22:49 Test Item Value Reference Range Interpretation Comments LACTIC ACID (test code = 2.20 mmol/L 0.50-2.20 9821013628) Lab Interpretation (test code = Normal 65217-9) [facility] Trweu5915-83-45 13:22:49 Test Item Value Reference Range Interpretation Comments LACTIC ACID (test code = 2.20 mmol/L 0.50-2.20 7987601576) Lab Interpretation (test code = Normal 09855-5) [facility] Blood Towgx8118-13-69 03:50:00 Test Item Value Reference Range Interpretation Comments White Blood Count (test code = 6690-2) 3.1 4.1-12.9 [facility] Blood Sbyev4238-13-51 03:50:00 Test Item Value Reference Range Interpretation Comments Red Blood Count (test code = 789-8) 2.63 3.64-5.20 [facility] 03:50:00 Test Item Value Reference Range Interpretation Comments Hemoglobin (test code = 718-7) 8.1 10.6-15.6 [facility] CenterHematocrit2020-05-30 03:50:00 Test Item Value Reference Range Interpretation Comments Hematocrit (test code = 53891-3) 25.3 32.0-45.9 [facility] Corpuscular Lklwao9959-31-44 03:50:00 Test Item Value Reference Range Interpretation Comments Mean Corpuscular Volume (test code = 96.3 74.6-98.2 74938-3) [facility] Corpuscular Chekcluvzb8794-42-71 03:50:00 Test Item Value Reference Range Interpretation Comments Mean Corpuscular Hemoglobin (test code 30.9 24.3-33.8 = 96037-7) [facility] Corpuscular Hgb Concent Zrhi7148-46-61 03:50:00 Test Item Value Reference Range Interpretation Comments Mean Corpuscular Hgb Concent Diff (test 32.0 32.0-36.0 code = 50842-5) [facility] CenterRed Cell Distribution Jtibi5743-92-65 03:50:00 Test Item Value Reference Range Interpretation Comments Red Cell Distribution Width (test code 18.1 11.4-16.3 = 52445-8) 1+ ANISOCYTOSISCar[facility] CenterPlatelet Astwv6376-03-16 03:50:00 Test Item Value Reference Range Interpretation Comments Platelet Count (test code = 777-3) 129 168-441 [facility] CenterMe Platelet Drlhxf1335-47-48 03:50:00 Test Item Value Reference Range Interpretation Comments Mean Platelet Volume (test code = 9.1 6.8-10.2 30291-5) [facility] CenterGranulocytes (%)2020-01-02 03:50:00 Test Item Value Reference Range Interpretation Comments Granulocytes (%) (test code = 54305-2) 69.1 39.8-78.1 [facility] CenterLymphocytes %2020-01-02 03:50:00 Test Item Value Reference Range Interpretation Comments Lymphocytes % (test code = 736-9) 10.6 14.1-47.6 [facility] Hospital[facility] %2020-01-02 03:50:00 Test Item Value Reference Range Interpretation Comments Monocytes % (test code = 5905-5) 11.6 3.8-11.6 [facility] HospitalEosinophils %2020-01-02 03:50:00 Test Item Value Reference Range Interpretation Comments Eosinophils % (test code = 713-8) 6.5 0.6-7.3 [facility] CenterBasophils %2020-01-02 03:50:00 Test Item Value Reference Range Interpretation Comments Basophils % (test code = 50600-1) 2.2 0.0-2.0 [facility] CenterGranulocytes #2020-01-02 03:50:00 Test Item Value Reference Range Interpretation Comments Granulocytes # (test code = 89491-3) 2.2 1.6-10.1 [facility] CenterLymphocytes #2020-01-02 03:50:00 Test Item Value Reference Range Interpretation Comments Lymphocytes # (test code = 54975-0) 0.3 0.6-6.1 [facility] CenterMonocytes #2020-01-02 03:50:00 Test Item Value Reference Range Interpretation Comments Monocytes # (test code = 742-7) 0.4 0.2-1.5 [facility] CenterEosinophils #2020-01-02 03:50:00 Test Item Value Reference Range Interpretation Comments Eosinophils # (test code = 711-2) 0.2 0.0-0.9 [facility] CenterBasophils #2020-01-02 03:50:00 Test Item Value Reference Range Interpretation Comments Basophils # (test code = 17365-5) 0.1 0.0-0.2 [facility] CenterManual Pasbkczeloyx3500-59-68 03:50:00 Test Item Value Reference Range Interpretation Comments Manual Differential (test code = Manual NO Differential) [facility]odium Ladmd0073-26-04 03:50:00 Test Item Value Reference Range Interpretation Comments Sodium Level (test code = 2951-2) 141 135-144 [facility] CenterPotassium Gnuwm0908-94-59 03:50:00 Test Item Value Reference Range Interpretation Comments Potassium Level (test code = 2823-3) 2.5 3.5-5.1 Critical Result S_K:2.5 Called to and read back by: ISRAEL ROJAS at: 01/02/2020 06:19:53 by:SUSI JIMENEZMem[facility] Spine HospitalChloride Level 2020-01-02 03:50:00 Test Item Value Reference Range Interpretation Comments Chloride Level (test code = 2075-0) 125 101-111 [facility] CenterCarbon Dioxide Qzlda4626-57-50 03:50:00 Test Item Value Reference Range Interpretation Comments Carbon Dioxide Level (test code = 12 32 2027-) [facility] CenterAnion Qrx7408-95-10 03:50:00 Test Item Value Reference Range Interpretation Comments Anion Gap (test code = 86247-9) 6.5 10-20 [facility] CenterGlucose Qhtba5732-16-67 03:50:00 Test Item Value Reference Range Interpretation Comments Glucose Level (test code = 2345-7) 90 65-99 Prediabetes 100 to 125 mg/dlDiabetes 126mg/dl or higher Prediabetes refers to individuals with plasma glucose levelsintermediate between those considered normal and thoseconsidered diabetic and is also referred to as impairedglucose tolerance (IGT) or impaired fasting glucose (IFG). [facility] CenterBlood Urea Cqkrztjt4976-90-77 03:50:00 Test Item Value Reference Range Interpretation Comments Blood Urea Nitrogen (test code = 9 03-30 3094-0) [facility] CenterCreatinine2020-05-30 03:50:00 Test Item Value Reference Range Interpretation Comments Creatinine (test code = 2160-0) 0.5 0.44-1.00 [facility] CenterEGFR Hgsh8355-61-57 03:50:00 Test Item Value Reference Range Interpretation Comments EGFR Note (test code = 13364-8) 101.4 63.8-143.2 eGFR (Estimated Glomerular Filtration Rate) eGFR calculation value obtained using the [facility] Medical CenterQuadratic (Q) equation. The reportable reference range isrecommended to be greater than 60 ml/min/1.73m. This is anestimation of the patient's GFR and clinical correlation isrecommended. This eGFR calculation does not account for race. This resultmay differ from other equations available. [facility] CenterCalcium Xktak6611-46-58 03:50:00 Test Item Value Reference Range Interpretation Comments Calcium Level (test code = 72039-8) 7.2 8.9-10.3 [facility] CenterAmmonia2020-05-30 03:50:00 Test Item Value Reference Range Interpretation Comments Ammonia (test code = 51099-4) 90 11-35 [facility] CenterCreatine Jwzlhu2979-61-97 02:59:00 Test Item Value Reference Range Interpretation Comments Creatine Kinase (test code = 2157-6) 309 38-234 [facility] CenterCreatine Kinase TQ0546-38-30 02:59:00 Test Item Value Reference Range Interpretation Comments Creatine Kinase MB (test code = 5.90 0.6-6.3 36083-0) [facility] CenterTroponin [id number] 02:59:00 Test Item Value Reference Range Interpretation Comments Troponin I (test code = 83818-2) 0.02 0.00-0.03 Troponin I-Interpretation Reference : <0.03 [...] 3. Serial sampling is critical for accurate diagnosis.[facility] CenterMyoglobin 2020-01-01 02:59:00 Test Item Value Reference Range Interpretation Comments Myoglobin (test code = 2639-3) 91 14.3-65.8 [facility] CenterAlcohols2020-05-29 02:59:00 Test Item Value Reference Range Interpretation Comments Alcohols (test code = 5643-2) < 5 0-5 [facility] CenterLactic Acid Rbrjf2367-53-26 22:19:00 Test Item Value Reference Range Interpretation Comments Lactic Acid Level (test code = 2524-7) 1.9 0.5-2.0 [facility] CenterUrine Hsuhmja8657-11-21 15:16:00 Test Item Value Reference Range Interpretation Comments Urine Culture (test code = ESCHERICHIA COLI 630-4) [facility] CenterProthrombin Bedg7362-80-95 14:50:00 Test Item Value Reference Range Interpretation Comments Prothrombin Time (test code = 5964-2) 15.1 10.0-12.9 [facility] CenterINR International Normalized Aaljl5245-55-89 14:50:00 Test Item Value Reference Range Interpretation [...] Consensus Conference on Antithrombotic Therapy,Chest 2001; 119:Supplement 8-21.[facility] CenterActivated Partial Thromboplast Nuou6034-89-11 14:50:00 Test Item Value Reference Range Interpretation Comments Activated Partial Thromboplast Time 37.8 25.1-36.5 (test code = 3173-2) [facility] CenterAlbumin2020-05-28 14:50:00 Test Item Value Reference Range Interpretation Comments Albumin (test code = 1751-7) 2.4 3.5-5.0 [facility]tal Bryjopqly4874-11-43 14:50:00 Test Item Value Reference Range Interpretation Comments Total Bilirubin (test code = 1975-2) 1.6 0.2-1.2 [facility] CenterAlkaline Gcuclndarqc4993-62-86 14:50:00 Test Item Value Reference Range Interpretation Comments Alkaline Phosphatase (test code = 118 32-91 6768-6) [facility] CenterTotal Jbxpotj8446-49-30 14:50:00 Test Item Value Reference Range Interpretation Comments Total Protein (test code = 2885-2) 6.8 6.5-8.1 [facility] CenterAlanine Aminotransferase (ALT/SGPT)2019-12-31 14:50:00 Test Item Value Reference Range Interpretation Comments Alanine Aminotransferase (ALT/SGPT) 31 7-55 (test code = 1742-6) [facility] CenterAspartate Amino Transf (AST/SGOT)2019-12-31 14:50:00 Test Item Value Reference Range Interpretation Comments Aspartate Amino Transf (AST/SGOT) (test 78 15-41 code = 1920-8) [facility] CenterGlobulin2020-05-28 14:50:00 Test Item Value Reference Range Interpretation Comments Globulin (test code = 38834-4) 4.4 2.3-3.5 [facility] CenterAlbumin/Globulin Roxxr3850-87-30 14:50:00 Test Item Value Reference Range Interpretation Comments Albumin/Globulin Ratio (test code = 0.5 1.2-2.2 1759-0) [facility] CenterAmylase Jkcns8615-62-06 14:50:00 Test Item Value Reference Range Interpretation Comments Amylase Level (test code = 1798-8) 81 36-128 [facility] CenterLipase2020-05-28 14:50:00 Test Item Value Reference Range Interpretation Comments Lipase (test code = 3040-3) 18 22-51 [facility] CenterHdhynhvwEbirtvqwxtdnv7816-97-77 14:50:00 Test Item Value Reference Range Interpretation Comments Procalcitonin (test code = 69624-6) 0.10 0-0.49 PROCALCITONIN <0.50 ng/mL Systemic infection is not likely. Local bacterial infection is possible. PROCALCITONIN >0.50-2.00 ng/mL Systemic infection is possible. PROCALCITONIN >2.00 ng/mL Systemic infection is likely, unless other causes are known PROCALCITONIN >10.00 ng/mL Critical systemic inflammatory response, most likely due to bacterial sepsis.[facility] CenterUrine Cannabinoids Qbjjim6568-06-28 14:40:00 Test Item Value Reference Range Interpretation Comments Urine Cannabinoids Screen (test code NEGATIVE NEGATIVE = 83586-6) [facility] CenterPhencyclidine (PCP) Rexpou2775-47-21 14:40:00 Test Item Value Reference Range Interpretation Comments Phencyclidine (PCP) Screen (test NEGATIVE NEGATIVE code = Phencyclidine (PCP) Screen) [facility] CenterCocaine Dwbwqg8306-32-08 14:40:00 Test Item Value Reference Range Interpretation Comments Cocaine Screen (test code = 3397-7) NEGATIVE NEGATIVE [facility] CenterUrine Methamphetamines Rvbsqp3242-13-58 14:40:00 Test Item Value Reference Range Interpretation Comments Urine Methamphetamines Screen (test NEGATIVE NEGATIVE code = 67092-7) [facility] CenterOpiates Hoiqki2462-56-10 14:40:00 Test Item Value Reference Range Interpretation Comments Opiates Screen (test code = 97480-1) NEGATIVE NEGATIVE [facility] CenterUrine Amphetamines Wbpmmk4967-79-95 14:40:00 Test Item Value Reference Range Interpretation Comments Urine Amphetamines Screen (test code NEGATIVE NEGATIVE = 34727-2) [facility] CenterBenzodiazepines Qahhkv0827-87-95 14:40:00 Test Item Value Reference Range Interpretation Comments Benzodiazepines Screen (test code = NEGATIVE NEGATIVE 72952-2) [facility] CenterTricyclic Antidepressants Aixxxg7866-17-17 14:40:00 Test Item Value Reference Range Interpretation Comments Tricyclic Antidepressants Screen NEGATIVE NEGATIVE (test code = 03200-1) [facility] CenterMethadone Dmjyan7350-29-40 14:40:00 Test Item Value Reference Range Interpretation Comments Methadone Screen (test code = NEGATIVE NEGATIVE 03287-0) [facility] Barbiturates Lbxngu3514-41-80 14:40:00 Test Item Value Reference Range Interpretation Comments Urine Barbiturates Screen (test code NEGATIVE NEGATIVE = 91888-2) [facility] CenterOxycodone Hbipcc7943-90-73 14:40:00 Test Item Value Reference Range Interpretation Comments Oxycodone Screen (test code = NEGATIVE NEGATIVE 76832-2) [facility] CenterPropoxyphene Htjnji9274-28-12 14:40:00 Test Item Value Reference Range Interpretation Comments Propoxyphene Screen (test code = NEGATIVE NEGATIVE 68381-9) [facility] Buprenorphine Klyhjq9702-94-57 14:40:00 Test Item Value Reference Range Interpretation Comments Urine Buprenorphine Screen (test NEGATIVE NEGATIVE code = 3414-0) CUT OFF CONCENTRATIONS:AMPHETAMINE 500 ng/mlBARBITURATES 200 ng/mlBENZODIAZEPINES 150 ng/mlBUPRENORPHINE 10 ng/mlCOCAINE 150 ng/mlMETHAMPHETAMINE 500 ng/mlMETHADONE 200 ng/mlOPIATES 100 ng/mlOXYCODONE 100 ng/mlPHENCYCLIDINE 25 ng/mlPROPOXYPHENE 300 ng/mlCANNIBINOIDS 50 ng/mlTRICYCLIC VCMHMXIXGWMLAYF457 ng/ml ATTENTION:It is important to remember that the KidStartTOX device, likeother instant drug testing immunoassays are [...] presentbut below the cut-off level of the test.[facility] Pplfz1371-18-02 14:40:00 Test Item Value Reference Range Interpretation Comments Urine Color (test code = 23424-3) [place] YELLOW Substances that cause abnormal urine color may affect thereadability of test pads on urinalysis reagent strips. Thesesubstances include visible levels of blood or bilirubin anddrugs containing dyes (e.g., Pyridium, Azo Gantrisin, AzoGantanol), nitrofurantion (Macrodantin, Furadantin), orriboflavin.[facility] Shiipai0640-89-59 14:40:00 Test Item Value Reference Range Interpretation Comments Urine Clarity (test code = 79216-1) Cloudy CLEAR [facility] Fukvdbk3331-46-30 14:40:00 Test Item Value Reference Range Interpretation Comments Urine Glucose (test code = 5792-7) NEGATIVE NEGATIVE [facility] Hhxiouydl5879-06-29 14:40:00 Test Item Value Reference Range Interpretation Comments Urine Bilirubin (test code = 5770-3) NEGATIVE NEGATIVE [facility] Xsylgcz0389-22-16 14:40:00 Test Item Value Reference Range Interpretation Comments Urine Ketones (test code = 5797-6) NEGATIVE NEGATIVE [facility] Specific Ikewbni4804-78-18 14:40:00 Test Item Value Reference Range Interpretation Comments Urine Specific [place] (test code = 1.023 1.002-1.030 5811-5) [facility] Ewwgz4418-52-32 14:40:00 Test Item Value Reference Range Interpretation Comments Urine Blood (test code = 94547-3) SMALL NEGATIVE [facility] [id number] 14:40:00 Test Item Value Reference Range Interpretation Comments Urine pH (test code = 5803-2) 6 5.0-8.0 [facility] Udxqhrm2206-04-09 14:40:00 Test Item Value Reference Range Interpretation Comments Urine Protein (test code = 5804-0) 30 NEGATIVE [facility] Jastztsxaclp0739-35-41 14:40:00 Test Item Value Reference Range Interpretation Comments Urine Urobilinogen (test code = 2.0 NEGATIVE 43062-1) [facility] Svjawac0712-97-99 14:40:00 Test Item Value Reference Range Interpretation Comments Urine Nitrite (test code = 5802-4) POSITIVE NEGATIVE [facility] Leukocyte Zitjuidm9094-42-37 14:40:00 Test Item Value Reference Range Interpretation Comments Urine Leukocyte Esterase (test code = 250 NEGATIVE 40663-1) [facility] [id number] 14:40:00 Test Item Value Reference Range Interpretation Comments Urine RBC (test code = 28043-1) 6-14 0-2 [facility] [id number] 14:40:00 Test Item Value Reference Range Interpretation Comments Urine WBC (test code = 51223-2) TNTC 0-5 "Urine Culture test was reflexed and added to this specimen"[facility] Squamous Epithelial Lvuag7813-33-90 14:40:00 Test Item Value Reference Range Interpretation Comments Urine Squamous Epithelial Cells (test 0-2 0-5 code = 31515-6) [facility] Nqhjuguu2944-00-33 14:40:00 Test Item Value Reference Range Interpretation Comments Urine Bacteria (test code = 81638-5) 2+ NEGATIVE "Urine Culture test was reflexed and added to this specimen"[facility] WBC Uwsiaf9332-83-39 14:40:00 Test Item Value Reference Range Interpretation Comments Urine WBC Clumps (test code = 86285-2) 15-30 NEGATIVE [facility] Fdora4322-08-84 14:40:00 Test Item Value Reference Range Interpretation Comments Urine Mucus (test code = 21655-5) MANY NEGATIVE [facility] CenterAmmonia2020-05-13 05:00:00 Test Item Value Reference Range Interpretation Comments Ammonia (test code = 73282-6) 75 11-35 [facility] Aishs9775-17-46 04:11:00 Test Item Value Reference Range Interpretation Comments Sodium Level (test code = 2951-2) 135 135-144 [facility] CenterPotassium Cpzvx9708-49-45 04:11:00 Test Item Value Reference Range Interpretation Comments Potassium Level (test code = 2823-3) 4.2 3.5-5.1 [facility] CenterChloride Fvsfe3296-95-12 04:11:00 Test Item Value Reference Range Interpretation Comments Chloride Level (test code = 2075-0) 115 101-111 [facility] CenterCarbon Dioxide Hcilt2706-84-07 04:11:00 Test Item Value Reference Range Interpretation Comments Carbon Dioxide Level (test code = 16 8-9) [facility] CenterAnion Avw6411-09-54 04:11:00 Test Item Value Reference Range Interpretation Comments Anion Gap (test code = 52930-2) 8.2 10-20 [facility] CenterGlucose Yvbse5344-79-23 04:11:00 Test Item Value Reference Range Interpretation Comments Glucose Level (test code = 2345-7) 95 65-99 Prediabetes 100 to 125 mg/dlDiabetes 126mg/dl or higher Prediabetes refers to individuals with plasma glucose levelsintermediate between those considered normal and thoseconsidered diabetic and is also referred to as impairedglucose tolerance (IGT) or impaired fasting glucose (IFG). [facility] CenterBlood Urea Umxqojhe1273-36-32 04:11:00 Test Item Value Reference Range Interpretation Comments Blood Urea Nitrogen (test code = 03-30 3094-0) [facility] CenterCreatinine2020-05-12 04:11:00 Test Item Value Reference Range Interpretation Comments Creatinine (test code = 2160-0) 0.6 0.44-1.00 [facility] CenterEGFR Svnf3348-35-12 04:11:00 Test Item Value Reference Range Interpretation Comments EGFR Note (test code = 33988-6) 101.4 63.8-143.2 eGFR (Estimated Glomerular Filtration Rate) eGFR calculation value obtained using the [facility] Medical CenterQuadratic (MCQ) equation. The reportable reference range isrecommended to be greater than 60 ml/min/1.73m. This is anestimation of the patient's GFR and clinical correlation isrecommended. This eGFR calculation does not account for race. This resultmay differ from other equations available. [facility] CenterCalcium Cxvnh1383-87-59 04:11:00 Test Item Value Reference Range Interpretation Comments Calcium Level (test code = 37970-1) 7.7 8.9-10.3 [facility] CenterMagnesium Vdbuq1161-34-97 04:16:00 Test Item Value Reference Range Interpretation Comments Magnesium Level (test code = 12010-5) 2.0 1.8-2.5 [facility] Odpxk9943-72-56 04:16:00 Test Item Value Reference Range Interpretation Comments Magnesium Level (test code = 33453-2) 2.0 1.8-2.5 [facility] CenterManual Hryusedhvehf9565-24-85 03:08:00 Test Item Value Reference Range Interpretation Comments Manual Differential (test code = Manual NO Differential) [facility] CenterAlbumin2020-05-10 03:08:00 Test Item Value Reference Range Interpretation Comments Albumin (test code = 1751-7) 2.3 3.5-5.0 [facility] Klrjzpjkg7991-78-90 03:08:00 Test Item Value Reference Range Interpretation Comments Total Bilirubin (test code = 1975-2) 2.0 0.2-1.2 [facility] CenterAlkaline Aberhudgodw4816-19-57 03:08:00 Test Item Value Reference Range Interpretation Comments Alkaline Phosphatase (test code = 131 32-91 6768-6) [facility]tal Rljtlfv9969-86-29 03:08:00 Test Item Value Reference Range Interpretation Comments Total Protein (test code = 2885-2) 7.0 6.5-8.1 [facility] CenterAlanine Aminotransferase (ALT/SGPT)2019-12-13 03:08:00 Test Item Value Reference Range Interpretation Comments Alanine Aminotransferase (ALT/SGPT) 22 7-55 (test code = 1742-6) [facility] CenterAspartate Amino Transf (AST/SGOT)2019-12-13 03:08:00 Test Item Value Reference Range Interpretation Comments Aspartate Amino Transf (AST/SGOT) (test 65 15-41 code = 1920-8) [facility] CenterGlobulin2020-05-10 03:08:00 Test Item Value Reference Range Interpretation Comments Globulin (test code = 08861-7) 4.7 2.3-3.5 [facility] CenterAlbumin/Globulin Uyqjg0557-37-24 03:08:00 Test Item Value Reference Range Interpretation Comments Albumin/Globulin Ratio (test code = 0.5 1.2-2.2 1759-0) [facility] CenterWhite Blood Vgjeg9129-96-84 03:08:00 Test Item Value Reference Range Interpretation Comments White Blood Count (test code = 6690-2) 5.4 4.1-12.9 [facility] CenterRed Blood Mcjkt8112-56-03 03:08:00 Test Item Value Reference Range Interpretation Comments Red Blood Count (test code = 789-8) 3.05 3.64-5.20 [facility] CenterHemoglobin2020-05-10 03:08:00 Test Item Value Reference Range Interpretation Comments Hemoglobin (test code = 718-7) 9.6 10.6-15.6 [facility] CenterHematocrit2020-05-10 03:08:00 Test Item Value Reference Range Interpretation Comments Hematocrit (test code = 98637-9) 29.3 32.0-45.9 [facility] Corpuscular Imrusl5096-13-83 03:08:00 Test Item Value Reference Range Interpretation Comments Mean Corpuscular Volume (test code = 96.1 74.6-98.2 21860-8) [facility]uscular Uleyltoomk7260-79-67 03:08:00 Test Item Value Reference Range Interpretation Comments Mean Corpuscular Hemoglobin (test code 31.5 24.3-33.8 = 20253-7) [facility] Hgb Concent Ceqe6679-78-38 03:08:00 Test Item Value Reference Range Interpretation Comments Mean Corpuscular Hgb Concent Diff (test 32.8 32.0-36.0 code = 34548-4) [facility] CenterRed Cell Distribution Mtgxt1830-00-20 03:08:00 Test Item Value Reference Range Interpretation Comments Red Cell Distribution Width (test code 16.9 11.4-16.3 = 93916-4) [facility] CenterPlatelet Ycpzn5113-52-65 03:08:00 Test Item Value Reference Range Interpretation Comments Platelet Count (test code = 777-3) 208 168-441 [facility] CenterMean Platelet Nasixe8864-90-91 03:08:00 Test Item Value Reference Range Interpretation Comments Mean Platelet Volume (test code = 7.9 6.8-10.2 01841-2) [facility] CenterGranulocytes (%)2019-12-13 03:08:00 Test Item Value Reference Range Interpretation Comments Granulocytes (%) (test code = 58726-7) 75.3 39.8-78.1 [facility] CenterLymphocytes %2019-12-13 03:08:00 Test Item Value Reference Range Interpretation Comments Lymphocytes % (test code = 736-9) 6.2 14.1-47.6 [facility]2019-[facility]-13 03:08:00 Test Item Value Reference Range Interpretation Comments Monocytes % (test code = 5905-5) 9.5 3.8-11.6 [facility] CenterEosinophils %2019-12-13 03:08:00 Test Item Value Reference Range Interpretation Comments Eosinophils % (test code = 713-8) 6.8 0.6-7.3 [facility] CenterBasophils %2019-12-13 03:08:00 Test Item Value Reference Range Interpretation Comments Basophils % (test code = 94109-0) 2.2 0.0-2.0 [facility] CenterGranulocytes #2019-12-13 03:08:00 Test Item Value Reference Range Interpretation Comments Granulocytes # (test code = 01897-7) 4.1 1.6-10.1 [facility] CenterLymphocytes #2019-12-13 03:08:00 Test Item Value Reference Range Interpretation Comments Lymphocytes # (test code = 55697-9) 0.3 0.6-6.1 [facility] CenterMonocytes #2019-12-13 03:08:00 Test Item Value Reference Range Interpretation Comments Monocytes # (test code = 742-7) 0.5 0.2-1.5 [facility] CenterEosinophils #2019-12-13 03:08:00 Test Item Value Reference Range Interpretation Comments Eosinophils # (test code = 711-2) 0.4 0.0-0.9 [facility] CenterBasophils #2019-12-13 03:08:00 Test Item Value Reference Range Interpretation Comments Basophils # (test code = 92901-3) 0.1 0.0-0.2 [facility] CenterLactic Acid Lfunj4257-44-26 20:26:00 Test Item Value Reference Range Interpretation Comments Lactic Acid Level (test code = 2524-7) 1.8 0.5-2.0 [facility] CenterAlcohols2020-05-09 19:00:00 Test Item Value Reference Range Interpretation Comments Alcohols (test code = 5643-2) < 5 0-5 [facility] CenterUrine Cannabinoids Vdpoow0477-11-83 17:53:00 Test Item Value Reference Range Interpretation Comments Urine Cannabinoids Screen (test code NEGATIVE NEGATIVE = 96272-8) [facility] CenterPhencyclidine (PCP) Mjrohw5503-14-33 17:53:00 Test Item Value Reference Range Interpretation Comments Phencyclidine (PCP) Screen (test NEGATIVE NEGATIVE code = Phencyclidine (PCP) Screen) [facility] CenterCocaine Bujgqq0259-42-99 17:53:00 Test Item Value Reference Range Interpretation Comments Cocaine Screen (test code = 3397-7) NEGATIVE NEGATIVE [facility] CenterUrine Methamphetamines Mtklgo5201-86-96 17:53:00 Test Item Value Reference Range Interpretation Comments Urine Methamphetamines Screen (test NEGATIVE NEGATIVE code = 51436-8) [facility] CenterOpiates Lwmeyl7510-13-00 17:53:00 Test Item Value Reference Range Interpretation Comments Opiates Screen (test code = 21889-1) NEGATIVE NEGATIVE [facility] Amphetamines Kwcggj3227-55-17 17:53:00 Test Item Value Reference Range Interpretation Comments Urine Amphetamines Screen (test code NEGATIVE NEGATIVE = 93422-1) [facility] CenterBenzodiazepines Pzteld1040-39-01 17:53:00 Test Item Value Reference Range Interpretation Comments Benzodiazepines Screen (test code = NEGATIVE NEGATIVE 07133-0) [facility] CenterTricyclic Antidepressants Hxlpou4543-20-26 17:53:00 Test Item Value Reference Range Interpretation Comments Tricyclic Antidepressants Screen NEGATIVE NEGATIVE (test code = 13736-4) [facility] CenterMethadone Lxvkfy6461-20-21 17:53:00 Test Item Value Reference Range Interpretation Comments Methadone Screen (test code = NEGATIVE NEGATIVE 66230-2) [facility] CenterUrine Barbiturates Ojobvd7876-85-88 17:53:00 Test Item Value Reference Range Interpretation Comments Urine Barbiturates Screen (test code NEGATIVE NEGATIVE = 07523-3) [facility] CenterOxycodone Dicefi2203-07-50 17:53:00 Test Item Value Reference Range Interpretation Comments Oxycodone Screen (test code = NEGATIVE NEGATIVE 88972-7) [facility] CenterPropoxyphene Omslpd1904-93-98 17:53:00 Test Item Value Reference Range Interpretation Comments Propoxyphene Screen (test code = NEGATIVE NEGATIVE 60533-5) [facility] CenterUrine Buprenorphine Xxnbco6469-30-35 17:53:00 Test Item Value Reference Range Interpretation Comments Urine Buprenorphine Screen (test NEGATIVE NEGATIVE code = 3414-0) CUT OFF CONCENTRATIONS:AMPHETAMINE 500 ng/mlBARBITURATES 200 ng/mlBENZODIAZEPINES 150 ng/mlBUPRENORPHINE 10 ng/mlCOCAINE 150 ng/mlMETHAMPHETAMINE 500 ng/mlMETHADONE 200 ng/mlOPIATES 100 ng/mlOXYCODONE 100 ng/mlPHENCYCLIDINE 25 ng/mlPROPOXYPHENE 300 ng/mlCANNIBINOIDS 50 ng/mlTRICYCLIC ADZXLMOACNDTPZR408 ng/ml ATTENTION:It is important to remember that the KidStartTOX device, likeother instant drug testing immunoassays are [...] presentbut below the cut-off level of the test.[facility] Hgasz1128-31-29 17:53:00 Test Item Value Reference Range Interpretation Comments Urine Color (test code = 62631-8) [place] YELLOW Substances that cause abnormal urine color may affect thereadability of test pads on urinalysis reagent strips. Thesesubstances include visible levels of blood or bilirubin anddrugs containing dyes (e.g., Pyridium, Azo Gantrisin, AzoGantanol), nitrofurantion (Macrodantin, Furadantin), orriboflavin.[facility] Ecjzdei8228-47-35 17:53:00 Test Item Value Reference Range Interpretation Comments Urine Clarity (test code = 70904-4) Cloudy CLEAR [facility] Rkaumjr4027-95-17 17:53:00 Test Item Value Reference Range Interpretation Comments Urine Glucose (test code = 5792-7) NEGATIVE NEGATIVE [facility] Zzamrxcbb4569-69-45 17:53:00 Test Item Value Reference Range Interpretation Comments Urine Bilirubin (test code = 5770-3) NEGATIVE NEGATIVE [facility] Orfwmev4825-57-26 17:53:00 Test Item Value Reference Range Interpretation Comments Urine Ketones (test code = 5797-6) NEGATIVE NEGATIVE [facility] Specific Vhqudna9515-53-73 17:53:00 Test Item Value Reference Range Interpretation Comments Urine Specific [place] (test code = 1.014 1.002-1.030 5811-5) [facility] Xabsf1153-98-69 17:53:00 Test Item Value Reference Range Interpretation Comments Urine Blood (test code = 62256-0) NEGATIVE NEGATIVE [facility] [id number] 17:53:00 Test Item Value Reference Range Interpretation Comments Urine pH (test code = 5803-2) 7 5.0-8.0 [facility] Skqlzsr3087-27-23 17:53:00 Test Item Value Reference Range Interpretation Comments Urine Protein (test code = 5804-0) NEGATIVE NEGATIVE [facility] Pqqmqzatdnqd7355-15-64 17:53:00 Test Item Value Reference Range Interpretation Comments Urine Urobilinogen (test code = 4.0 NEGATIVE 21311-5) [facility] Vwfooeh7198-55-42 17:53:00 Test Item Value Reference Range Interpretation Comments Urine Nitrite (test code = 5802-4) NEGATIVE NEGATIVE [facility] Leukocyte Ueefettk9134-64-17 17:53:00 Test Item Value Reference Range Interpretation Comments Urine Leukocyte Esterase (test code = 25 NEGATIVE 08076-6) [facility] WRO3187-99-76 17:53:00 Test Item Value Reference Range Interpretation Comments Urine RBC (test code = 16611-2) 0-2 0-2 [facility] [id number] 17:53:00 Test Item Value Reference Range Interpretation Comments Urine WBC (test code = 82237-7) 3-5 0-5 [facility] Squamous Epithelial Tzijg7398-41-07 17:53:00 Test Item Value Reference Range Interpretation Comments Urine Squamous Epithelial Cells (test 31-50 0-5 code = 93621-4) [facility] Rrdknasy2126-27-07 17:53:00 Test Item Value Reference Range Interpretation Comments Urine Bacteria (test code = 51461-9) RARE NEGATIVE [facility] Hyaline Qijta5345-89-99 17:53:00 Test Item Value Reference Range Interpretation Comments Urine Hyaline Casts (test code = 0-2 0-2 08547-2) [facility] Amorphous Byyzdrez2149-43-17 17:53:00 Test Item Value Reference Range Interpretation Comments Urine Amorphous Crystals (test OCCASIONAL NEGATIVE code = 83578-4) [facility] Pezrq6207-19-08 17:53:00 Test Item Value Reference Range Interpretation Comments Urine Mucus (test code = 32206-2) 2+ NEGATIVE [facility] Hyaline Pbxjm3730-49-85 17:53:00 Test Item Value Reference Range Interpretation Comments Urine Hyaline Casts (test code = 0-2 0-2 47322-6) [facility] Amorphous Fjsqdbfs1221-34-68 17:53:00 Test Item Value Reference Range Interpretation Comments Urine Amorphous Crystals (test OCCASIONAL NEGATIVE code = 04631-9) [facility] CenterProthrombin Cwmj3241-62-47 16:30:00 Test Item Value Reference Range Interpretation Comments Prothrombin Time (test code = 5964-2) 16.0 10.0-12.9 [facility] CenterINR International Normalized Tnqhl2709-55-89 16:30:00 Test Item Value Reference Range Interpretation [...] Consensus Conference on Antithrombotic Therapy,Chest 2001; 119:Supplement 8-21.[facility] CenterActivated Partial Thromboplast Erqz0264-80-00 16:30:00 Test Item Value Reference Range Interpretation Comments Activated Partial Thromboplast Time 42.7 25.1-36.5 (test code = 3173-2) [facility] CenterAmylase Eupav2979-72-03 16:30:00 Test Item Value Reference Range Interpretation Comments Amylase Level (test code = 1798-8) 54 36-128 [facility] CenterLipase2020-05-09 16:30:00 Test Item Value Reference Range Interpretation Comments Lipase (test code = 3040-3) 19 22-51 [facility] CenterCreatine Ocmhse5165-35-97 16:30:00 Test Item Value Reference Range Interpretation Comments Creatine Kinase (test code = 2157-6) 1055 38-234 [facility] CenterCreatine Kinase FA0270-55-56 16:30:00 Test Item Value Reference Range Interpretation Comments Creatine Kinase MB (test code = 4.55 0.6-6.3 37090-6) [facility] CenterTroponin A6000-05-16 16:30:00 Test Item Value Reference Range Interpretation Comments Troponin I (test code = 51770-5) < 0.01 0.00-0.03 Troponin I-Interpretation Reference : [...] 3. Serial sampling is critical for accurate diagnosis.[facility] CenterMyoglobin 2019-12-12 16:30:00 Test Item Value Reference Range Interpretation Comments Myoglobin (test code = 2639-3) 1884 14.3-65.8 [facility] CenterB-Type Natriuretic Mvvkrxd4898-51-23 16:30:00 Test Item Value Reference Range Interpretation Comments B-Type Natriuretic Peptide (test code = 34 0-100 37232-0) [facility] Qefgsij7434-70-46 16:30:00 Test Item Value Reference Range Interpretation Comments Blood Culture (test code NO GROWTH AT 48 HRS = Blood Culture) [facility] CenterB-Type Natriuretic Lnwgagl1371-89-24 16:30:00 Test Item Value Reference Range Interpretation Comments B-Type Natriuretic Peptide (test code = 34 0-100 85954-0) [facility] [id number] 16:30:00 Test Item Value Reference Range Interpretation Comments Blood Culture (test code NO GROWTH AT 5 DAYS. = Blood Culture) [facility] [id number] 16:16:00 Test Item Value Reference Range Interpretation Comments Blood Culture (test code NO GROWTH AT 48 HRS = Blood Culture) [facility] [id number] 16:16:00 Test Item Value Reference Range Interpretation Comments Blood Culture (test code NO GROWTH AT 5 DAYS. = Blood Culture) [facility] PARACENTESIS W [id number] 08:09:00 Patient Name: AMAURI CHAUDHARY Unit No: [id number] EXAMS: CPT CODE: [id number] SP PARACENTESIS W IMAGE [id number] Site ID: [id number] EXAMINATION: Ultrasound-guided paracentesis. INDICATION: Ascites. CONSENT: Informed consent was obtained from the patient. The risks, benefits, potential complications and alternatives were reviewed and all questions answered to the patient's satisfaction. Sedation/Medications: None. FINDINGS: ascites. PROCEDURE: After sterile preparation and draping, 1% lidocaine was utilized forlocal anesthesia. Following sterile preparation and local anesthetic and using 2 D real-time ultrasound for guidance, a 5 Fr sheath on a trocar needle was introduced into the peritoneal fluid collection in the right lower quadrant from an anterior approach. Images of needle position documented. The sheath was advanced into the deepest fluid pocket and a total of 12.6 liters of harrison-colored fluid wasthen evacuated from the peritoneum without difficulty. Fluid was submitted to the laboratory. No immediate complications. IMPRESSION: Successful ultrasound guided paracentesis. Electronically Signedby Shilo Tesfaye on 05/04/2019 at 0809 Reported and signed by: Shilo Tesfaye CC: May Mcleod MD; Shilo Tesfaye MD Dictated Date/Time: 05/04/2019 (0809) Technologist: Toby Ruiz Time: DAP (Gy m2): Air Kerma (mGy): Trnscrpt: 05/04/2019 (0809) [facility] NAME: AMAURI CHAUDHARY Interventional Lab PHYS: Shilo Newton MD [address] [place], [place] [address] : 1970 AGE: 48 SEX: F [place] [address] LOC: B.243 W PHONE #: EXAM DATE: 05/01/2019 STATUS: DIS IN FAX #: RAD #: D/C DT 05/02/2019 PAGE 1 Signed ReportBASI METABOLIC [id number] 03:45:00 Test Item Value Reference Range Interpretation Comments SODIUM (test code = 134.0 mmol/L 133-144 N NA) POTASSIUM (test code 3.7 mmol/L 3.5-5.1 N = K) CHLORIDE (test code 109 mmol/L 95-105 H = CL) CARBON DIOXIDE (test 15 mmol/L 21-32 LL ON 04/06 03/23 AT code = CO2) 0344, B.LAB.BROTH SETTER CALLED TO JENNY CARTER . The report [...] Index/DL Is this a LINE draw? NVANCOMYCIN [id number] 22:26:00 Test Item Value Reference Range Interpretation [...] Goal (mcg/mL)------- ------ -- ------ Bacteremia, Endocarditis, 1 5-20 Osteomyelitis, MRSA pneumonia, heal thcare acquired pneumo pearl, meningitis, cul tures with EDMUNDO of 2 f or Vancomycin----- ------ ------ ------ Cellulitis, emp irical coverage 05-19 ------ - ------ UTI, pediatric patient 05-19 ------ - ------ Renal Function Note - Serum creatinin e and blood urea nitr ogen should be monit ored at baseline and every 48H while on Vancomycin. Is this a LINE draw? N- NM MYOCRD SPECT R/S [id number] 12:15:00 Patient Name: AMAURI CHAUDHARY Unit No: [id number] EXAMS: CPT CODE: [id number] NM MYOCRD SPECT R/S MULT [id number] The patient exercised according to standard Lexiscan [...] function. at 1215 Reported and signed by: Gavin Smart M.D. Nuclear Medicine Cardiology exams performed on dual head cameras with appropriate software for processing and reporting. CC: Juani Florez NP; Oscar [place] NAME: AMAURI CHAUDHARY eflow PHYS: Juani Ruiz NP [address] [place] [address] : 1970 AGE: 48 SEX: Jo [place], [place] [address] LOC: B.243 W PHONE #: [phone] EXAM DATE: 05/01/2019 STATUS: ADM IN FAX #: [phone] RAD NO: DC Dt: PAGE 1 SignedReport Patient Name:AMAURI CHAUDHARY Unit No: [id number] EXAMS: CPT CODE: [id number] NM MYOCRD SPECT R/S MULT [id number] (Continued) Technologist: Claudia Daniel; Courtney Campbell; ... Transcribed Date/Time: 05/01/2019 (1215) - [email or web address] Orig Print D/T: S: 05/01/2019 (1342) DILLON [place] NAME: AMAURI CHAUDHARY eflow PHYS: Juani Ruiz NP [address] [place] [address] : 1970 AGE: 48 SEX: F [place], [place] [address] LOC: Becki W PHONE #: [phone] EXAM DATE: 05/01/2019 STATUS:ADM IN FAX #: [phone] RAD NO: DC Dt: PAGE 2 Signed ReportBASIC METABOLIC [id number] 03:49:00 Test Item Value Reference Range Interpretation [...] Is this a LINE draw? NBASIC METABOLIC [id number] 03:40:00 Test Item Value Reference Range Interpretation [...] LIPINDEX) Index/DL Is this a LINE draw? NEBC W/AUTO [id number] 03:32:00 Test Item Value Reference Range Interpretation [...] 0.00 K/mm3 0.0-0.05 N NRBC#) GLUCOSE BEDSIDE [id number] 11:36:00 Test Item Value Reference Range Interpretation Comments GLUCOSE BEDSIDE TESTING (test code 121 MG/DL 70-119 H = GLUBED) CBC W/MANUAL [id number] 06:50:00 Test Item Value Reference Range Interpretation [...] CRITERIA (test code = MDIFF) DIFF/SCN WBC [id number] 06:50:00 Test Item Value Reference Range Interpretation [...] ON SCAN ADEQUATE = PLTEST) BASIC METABOLIC [id number] 05:10:00 Test Item Value Reference Range Interpretation [...] NORMAL code = LIPINDEX) Index/DL CBC W/MANUAL [id number] 04:26:00 Test Item Value Reference Range Interpretation [...] CRITERIA (test code = MDIFF) DIFF/SCN WBC [id number] 04:26:00 Test Item Value Reference Range Interpretation Comments TOTAL CELLS COUNTED (test code = #CELLS >100 TCC) SEGMENTED NEUTROPHILS (test code = % 40-75 SEG) LYMPHOCYTE (test code = LYMPH) % 18.7-40.6 MORPHOLOGY COMMENT (test code = MOC) ON SCAN NORMAL RBCS PLATELET ESTIMATE (test code = ON SCAN ADEQUATE PLTEST) CBC W/MANUAL [id number] 04:26:00 Test Item Value Reference Range Interpretation [...] CRITERIA (test code = MDIFF) DIFF/SCN WBC [id number] 04:26:00 Test Item Value Reference Range Interpretation Comments TOTAL CELLS COUNTED (test code = #CELLS >100 TCC) SEGMENTED NEUTROPHILS (test code = % 40-75 SEG) LYMPHOCYTE (test code = LYMPH) % 18.7-40.6 MORPHOLOGY COMMENT (test code = MOC) ON SCAN NORMAL RBCS PLATELET ESTIMATE (test code = ON SCAN ADEQUATE PLTEST) HGB [id number] 22:43:00 Test Item Value Reference Range Interpretation Comments RED BLOOD CELL (test code = RBC) 4.44 M/mm3 3.8-5.5 N HEMOGLOBIN (test code = HGB) 13.4 G/DL 10.6-15.8 N HEMATOCRIT (test code = HCT) 39.3 % 31.8-47.4 N MEAN CELL VOLUME (test code = MCV) 88.5 fL 80.1-101.[address] F[id number] 13:22:00 Test Item Value Reference Range Interpretation [...] ORGANISMS IDENTIFIED. Gianfranco ESPARZA MD. PERITONEAL FLD [id number] 13:22:00 Test Item Value Reference Interpretation Comments [...] the clinical contextfor inte rpretation. PERITONEAL FLD [id number] 13:22:00 Test Item Value Reference Range Interpretation [...] clinic al contextfor interpretation. Performed At: [facility] [address] [place], [place] [id number] Dagoberto Ricardo MD Ph:[phone] PERITONEAL FLD [id number] 13:22:00 Test Item Value Reference Range Interpretation [...] clinic al context forinterpretati on. CBC W/MANUAL [id number] 13:12:00 Test Item Value Reference Range Interpretation [...] CRITERIA (test code = MDIFF) DIFF/SCN WBC [id number] 13:12:00 Test Item Value Reference Range Interpretation [...] ON SCAN ADEQUATE = PLTEST) CBC W/MANUAL [id number] 11:53:00 Test Item Value Reference Range Interpretation [...] CRITERIA (test code = MDIFF) DIFF/SCN WBC [id number] 11:53:00 Test Item Value Reference Range Interpretation Comments TOTAL CELLS COUNTED (test code = #CELLS >100 TCC) SEGMENTED NEUTROPHILS (test code = % 40-75 SEG) LYMPHOCYTE (test code = LYMPH) % 18.7-40.6 MORPHOLOGY COMMENT (test code = MOC) ON SCAN NORMAL RBCS PLATELET ESTIMATE (test code = ON SCAN ADEQUATE PLTEST) CBC W/MANUAL [id number] 11:53:00 Test Item Value Reference Range Interpretation [...] CRITERIA (test code = MDIFF) DIFF/SCN WBC [id number] 11:53:00 Test Item Value Reference Range Interpretation Comments TOTAL CELLS COUNTED (test code = #CELLS >100 TCC) SEGMENTED NEUTROPHILS (test code = % 40-75 SEG) LYMPHOCYTE (test code = LYMPH) % 18.7-40.6 MORPHOLOGY COMMENT (test code = MOC) ON SCAN NORMAL RBCS PLATELET ESTIMATE (test code = ON SCAN ADEQUATE PLTEST) PERITONEAL FLD CELL [id number] 11:10:00 Test Item Value Reference Range Interpretation [...] NONE (test code = MESPT) PERITONEAL FLD [id number] 11:10:00 Test Item Value Reference Interpretation Comments [...] the clinical contextfor inte rpretation. PERITONEAL FLD [id number] 11:10:00 Test Item Value Reference Range Interpretation Comments PERITONEAL FLD LDH (test code = LDHPT) PERITONEAL FLD [id number] 11:10:00 Test Item Value Reference Range Interpretation Comments PERITONEAL FLD AMYLASE (test code = AMYPT) PERITONEAL FLD CELL [id number] 11:10:00 Test Item Value Reference Range Interpretation [...] NONE (test code = MESPT) PERITONEAL FLD [id number] 11:10:00 Test Item Value Reference Interpretation Comments [...] the clinical contextfor inte rpretation. PERITONEAL FLD [id number] 11:10:00 Test Item Value Reference Range Interpretation Comments PERITONEAL FLD LDH (test code = LDHPT) PERITONEAL FLD [id number] 11:10:00 Test Item Value Reference Range Interpretation [...] al context forinterpretati on. PERITONEAL FLD CELL [id number] 11:10:00 Test Item Value Reference Range Interpretation [...] NONE (test code = MESPT) PERITONEAL FLD [id number] 11:10:00 Test Item Value Reference Interpretation Comments [...] the clinical contextfor inte rpretation. PERITONEAL FLD [id number] 11:10:00 Test Item Value Reference Range Interpretation [...] clinic al contextfor interpretation. Performed At: [facility] [address] [facility] [place] , [place] [id number] Kyle L MD Ph:[phone] PERITONEAL FLD [id number] 11:10:00 Test Item Value Reference Range Interpretation [...] clinic al context forinterpretati on. BODY FLUID [id number] 11:10:00 Test Item Value Reference Range Interpretation [...] the clinical contextfor inte rpretation. Effective May jermain 2018 the reference i nterval for 053405 Albumin, Body Fluid will be changing to Not Estab.Performed At: [facility] [address] [id number] Dagoberto Ricardo MD Ph:[phone] Specimen comments: PERITONEAL FLUIDCBC W/MANUAL [id number] 06:17:00 Test Item Value Reference Range Interpretation [...] CRITERIA (test code = MDIFF) DIFF/SCN WBC [id number] 06:17:00 Test Item Value Reference Range Interpretation [...] code = FEW ON SCAN NONE OVAL) DAVID CELLS (test code = FEW ON SCAN NONE BUR) PLATELET ESTIMATE (test SL DECR ON SCAN ADEQUATE code = PLTEST) PLATELET MORPHOLOGY (test LARGE FEW ON SCAN NORMAL PLTS code = PLTMORPH) BASIC METABOLIC [id number] 04:00:00 Test Item Value Reference Range Interpretation [...] MG 1 NORMAL code = LIPINDEX) Index/DL [id number] 04:00:00 Test Item Value Reference Range Interpretation Comments MAGNESIUM (test code = MAG) 1.8 MG/DL 1.6-2.6 N CBC W/MANUAL [id number] 03:57:00 Test Item Value Reference Range Interpretation [...] CRITERIA (test code = MDIFF) DIFF/SCN WBC [id number] 03:57:00 Test Item Value Reference Range Interpretation Comments TOTAL CELLS COUNTED (test code = #CELLS >100 TCC) SEGMENTED NEUTROPHILS (test code = % 40-75 SEG) LYMPHOCYTE (test code = LYMPH) % 18.7-40.6 MORPHOLOGY COMMENT (test code = MOC) ON SCAN NORMAL RBCS PLATELET ESTIMATE (test code = ON SCAN ADEQUATE PLTEST) CBC W/MANUAL [id number] 03:57:00 Test Item Value Reference Range Interpretation [...] CRITERIA (test code = MDIFF) DIFF/SCN WBC [id number] 03:57:00 Test Item Value Reference Range Interpretation Comments TOTAL CELLS COUNTED (test code = #CELLS >100 TCC) SEGMENTED NEUTROPHILS (test code = % 40-75 SEG) LYMPHOCYTE (test code = LYMPH) % 18.7-40.6 MORPHOLOGY COMMENT (test code = MOC) ON SCAN NORMAL RBCS PLATELET ESTIMATE (test code = ON SCAN ADEQUATE PLTEST) CBC W/MANUAL [id number] 19:07:00 Test Item Value Reference Range Interpretation [...] (test code = MDIFF) INDICATED DIFF/SCN WBC [id number] 19:07:00 Test Item Value Reference Range Interpretation [...] SLIGHT ON SCAN NONE code = TOX) DAVID CELLS (test code = FEW ON SCAN NONE BUR) PLATELET ESTIMATE (test MOD DECR ON SCAN ADEQUATE A code = PLTEST) PLATELET MORPHOLOGY (test LARGE FEW ON SCAN NORMAL PLTS code = PLTMORPH) CBC W/MANUAL [id number] 19:06:00 Test Item Value Reference Range Interpretation [...] (test code = MDIFF) INDICATED DIFF/SCN WBC [id number] 19:06:00 Test Item Value Reference Range Interpretation [...] code = FEW ON SCAN NONE OVAL) DAVID CELLS (test code = FEW ON SCAN NONE BUR) PLATELET ESTIMATE (test MOD DECR ON SCAN ADEQUATE A code = PLTEST) PLATELET MORPHOLOGY (test LARGE FEW ON SCAN NORMAL PLTS code = PLTMORPH) CBC W/MANUAL [id number] 18:24:00 Test Item Value Reference Range Interpretation [...] (test code = MDIFF) INDICATED DIFF/SCN WBC [id number] 18:24:00 Test Item Value Reference Range Interpretation Comments TOTAL CELLS COUNTED (test code = #CELLS >100 TCC) SEGMENTED NEUTROPHILS (test code = % 40-75 SEG) LYMPHOCYTE (test code = LYMPH) % 18.7-40.6 MORPHOLOGY COMMENT (test code = MOC) ON SCAN NORMAL RBCS PLATELET ESTIMATE (test code = ON SCAN ADEQUATE PLTEST) CBC W/MANUAL [id number] 18:24:00 Test Item Value Reference Range Interpretation [...] (test code = MDIFF) INDICATED DIFF/SCN WBC [id number] 18:24:00 Test Item Value Reference Range Interpretation Comments TOTAL CELLS COUNTED (test code = #CELLS >100 TCC) SEGMENTED NEUTROPHILS (test code = % 40-75 SEG) LYMPHOCYTE (test code = LYMPH) % 18.7-40.6 MORPHOLOGY COMMENT (test code = MOC) ON SCAN NORMAL RBCS PLATELET ESTIMATE (test code = ON SCAN ADEQUATE PLTEST) PERITONEAL FLD CELL [id number] 17:43:00 Test Item Value Reference Range Interpretation [...] NONE (test code = MESPT) PERITONEAL FLD [id number] 17:43:00 Test Item Value Reference Range Interpretation Comments PERITONEAL FLD GLUCOSE (test code = GLUPT) PERITONEAL FLD [id number] 17:43:00 Test Item Value Reference Range Interpretation Comments PERITONEAL FLD LDH (test code = LDHPT) PERITONEAL FLD [id number] 17:43:00 Test Item Value Reference Range Interpretation Comments PERITONEAL FLD AMYLASE (test code = AMYPT) PERITONEAL FLD CELL [id number] 16:44:00 Test Item Value Reference Range Interpretation Comments PERITONEAL FLD COLOR (test STRAW DESCRIP. COLORLESS code = COLPT) PERITONEAL FLD APPEARANCE CLEAR DESCRIP. CLEAR (test code = APPPT) PERITONEAL FLD WBC (test code 126 #/mm3 0-300 N = WBCPT) PERITONEAL FLD RBC (test code 495 #/mm3 0-0 H = RBCPT) PERITONEAL FLD POLY (test code % 0-49 = POLYPT) PERITONEAL FLD [id number] 16:44:00 Test Item Value Reference Range Interpretation Comments PERITONEAL FLD GLUCOSE (test code = GLUPT) PERITONEAL FLD [id number] 16:44:00 Test Item Value Reference Range Interpretation Comments PERITONEAL FLD LDH (test code = LDHPT) PERITONEAL FLD [id number] 16:44:00 Test Item Value Reference Range Interpretation Comments PERITONEAL FLD AMYLASE (test code = AMYPT) PERITONEAL FLD CELL [id number] 16:39:00 Test Item Value Reference Range Interpretation Comments PERITONEAL FLD COLOR (test code = DESCRIP. COLORLESS COLPT) PERITONEAL FLD APPEARANCE (test DESCRIP. CLEAR code = APPPT) PERITONEAL FLD WBC (test code = 126 #/mm3 0-300 N WBCPT) PERITONEAL FLD RBC (test code = 495 #/mm3 0-0 H RBCPT) PERITONEAL FLD POLY (test code = % 0-49 POLYPT) PERITONEAL FLD [id number] 16:39:00 Test Item Value Reference Range Interpretation Comments PERITONEAL FLD GLUCOSE (test code = GLUPT) PERITONEAL FLD [id number] 16:39:00 Test Item Value Reference Range Interpretation Comments PERITONEAL FLD LDH (test code = LDHPT) PERITONEAL FLD [id number] 16:39:00 Test Item Value Reference Range Interpretation Comments PERITONEAL FLD AMYLASE (test code = AMYPT) PERITONEAL FLD CELL [id number] 16:35:00 Test Item Value Reference Range Interpretation Comments PERITONEAL FLD COLOR (test code = DESCRIP. COLORLESS COLPT) PERITONEAL FLD APPEARANCE (test DESCRIP. CLEAR code = APPPT) PERITONEAL FLD WBC (test code = #/mm3 0-300 WBCPT) PERITONEAL FLD RBC (test code = 495 #/mm3 0-0 H RBCPT) PERITONEAL FLD POLY (test code = % 0-49 POLYPT) PERITONEAL FLD [id number] 16:35:00 Test Item Value Reference Range Interpretation Comments PERITONEAL FLD GLUCOSE (test code = GLUPT) PERITONEAL FLD [id number] 16:35:00 Test Item Value Reference Range Interpretation Comments PERITONEAL FLD LDH (test code = LDHPT) PERITONEAL FLD [id number] 16:35:00 Test Item Value Reference Range Interpretation Comments PERITONEAL FLD AMYLASE (test code = AMYPT) - SP PARACENTESIS W [id number] 15:59:00 Patient Name: AMAURI CHAUDHARY Unit No: [id number] EXAMS: CPT CODE: [id number] SP PARACENTESIS W IMAGE 93235 Site ID: [id number] EXAMINATION: Ultrasound-guided paracentesis. INDICATION: [...] signed by: Shilo Tesfaye CC: Oscar Mcleod MD; Shilo Tesfaye MD Dictated Date/Time: 04/28/2019 (3689) Technologist: Tamar Ruiz Time:DAP (Gy m2): Air Kerma (mGy): Trnscrpt: 04/28/2019 (1559) [facility] [place] [facility] NAME: AMAURI CHAUDHARY Interventional Lab PHYS: Shilo Newton MD [address] [place] [address] Blvd : 1970 AGE: 48SEX: F [place], [place] [address] LOC: B.CCU23 D PHONE #: EXAM DATE: 04/28/2019 STATUS: ADM IN FAX #: RAD #: D/C DT PAGE 1 Signed ReportUA RFLX MICR CULT IF [id number] 14:08:00 Test Item Value Reference Range Interpretation [...] Criteria Indication for culture: Flank PainCBC W/MANUAL [id number] 13:04:00 Test Item Value Reference Range Interpretation [...] CRITERIA (test code = MDIFF) DIFF/SCN WBC [id number] 13:04:00 Test Item Value Reference Range Interpretation [...] ON SCAN ADEQUATE = PLTEST) CBC W/MANUAL [id number] 12:23:00 Test Item Value Reference Range Interpretation [...] CRITERIA (test code = MDIFF) DIFF/SCN WBC [id number] 12:23:00 Test Item Value Reference Range Interpretation Comments TOTAL CELLS COUNTED (test code = #CELLS >100 TCC) SEGMENTED NEUTROPHILS (test code = % 40-75 SEG) LYMPHOCYTE (test code = LYMPH) % 18.7-40.6 MORPHOLOGY COMMENT (test code = MOC) ON SCAN NORMAL RBCS PLATELET ESTIMATE (test code = ON SCAN ADEQUATE PLTEST) CBC W/MANUAL [id number] 12:23:00 Test Item Value Reference Range Interpretation [...] CRITERIA (test code = MDIFF) DIFF/SCN WBC [id number] 12:23:00 Test Item Value Reference Range Interpretation Comments TOTAL CELLS COUNTED (test code = #CELLS >100 TCC) SEGMENTED NEUTROPHILS (test code = % 40-75 SEG) LYMPHOCYTE (test code = LYMPH) % 18.7-40.6 MORPHOLOGY COMMENT (test code = MOC) ON SCAN NORMAL RBCS PLATELET ESTIMATE (test code = ON SCAN ADEQUATE PLTEST) CBC W/MANUAL [id number] 12:10:00 Test Item Value Reference Range Interpretation Comments WHITE BLOOD CELL 14.6 K/mm3 4.1-12.1 H (test code = WBC) RED BLOOD CELL (test 1.07 M/mm3 3.8-5.5 LL code = RBC) HEMOGLOBIN (test 3.2 G/DL 10.6-15.8 LL ON 04/27/19 AT code = HGB) 2028, B.LAB.AK CALLED TO [facility][1]. The report was confirmed b y read back protocols Y,N: Y. HEMATOCRIT (test 10.8 % 31.8-47.4 LL ON 04/27/19 AT code = HCT) B.LAB.AK CALLED TO [facility]. The report was confirmed by re ad [...] (test code = MDIFF) INDICATED DIFF/SCN PATHOLOGIST'S [id number] 12:10:00 Test Item Value Reference Range Interpretation Comments PATHOLOGIST'S EXTERNAL COMMENTS RBC'S- HYPOCHR OMIC ANEMIA FINDINGS (test WITH INCREASE D code = PATH) POLYCHROMASIA A NDNRBC'S. WBC'S- LEUKOCYT OSIS WITH LEFT SHIFT. RAREPROMYELOCYT ES IDENTIFIED. Gianfranco ESPARZA MD. WBC [id number] 12:10:00 Test Item Value Reference Range Interpretation [...] = MOD ON SCAN NONE A ANISO) DAVID CELLS (test code = BUR) FEW ON SCAN NONE PLATELET ESTIMATE (test code = ADEQ ON SCAN ADEQUATE PLTEST) [id number] 10:49:00 Test Item Value Reference Range Interpretation [...] trop onin levelscharacter istic of [place]. HCG [id number] 09:00:00 Test Item Value Reference Range Interpretation Comments HCG SERUM (test <1 mi-IU/ML 0-3 N INTERPRET B- HCG LEVELS code = HCG) LESS THAN OR EQ UAL TO 3 MIU/ML NEG Specimen comments: PRE-OP ENDOComments to Natural Resources Specialist: BLOOD ALREADY IN LABIs this a LINE draw? NCBC W/MANUAL [id number] 08:42:00 Test Item Value Reference Range Interpretation [...] CRITERIA (test code = MDIFF) DIFF/SCN WBC [id number] 08:42:00 Test Item Value Reference Range Interpretation [...] ON SCAN ADEQUATE = PLTEST) CBC W/MANUAL [id number] 07:01:00 Test Item Value Reference Range Interpretation [...] CRITERIA (test code = MDIFF) DIFF/SCN WBC [id number] 07:01:00 Test Item Value Reference Range Interpretation Comments TOTAL CELLS COUNTED (test code = #CELLS >100 TCC) SEGMENTED NEUTROPHILS (test code = % 40-75 SEG) LYMPHOCYTE (test code = LYMPH) % 18.7-40.6 MORPHOLOGY COMMENT (test code = MOC) ON SCAN NORMAL RBCS PLATELET ESTIMATE (test code = ON SCAN ADEQUATE PLTEST) CBC W/MANUAL [id number] 07:01:00 Test Item Value Reference Range Interpretation [...] CRITERIA (test code = MDIFF) DIFF/SCN WBC [id number] 07:01:00 Test Item Value Reference Range Interpretation Comments TOTAL CELLS COUNTED (test code = #CELLS >100 TCC) SEGMENTED NEUTROPHILS (test code = % 40-75 SEG) LYMPHOCYTE (test code = LYMPH) % 18.7-40.6 MORPHOLOGY COMMENT (test code = MOC) ON SCAN NORMAL RBCS PLATELET ESTIMATE (test code = ON SCAN ADEQUATE PLTEST) BASIC METABOLIC [id number] 06:50:00 Test Item Value Reference Range Interpretation [...] NORMAL code = LIPINDEX) Index/DL BASIC METABOLIC [id number] 06:42:00 Test Item Value Reference Range Interpretation [...] MG 1 NORMAL = LIPINDEX) Index/DL LACTIC [id number] 04:16:00 Test Item Value Reference Range Interpretation Comments LACTIC ACID (test code = LACT) 1.6 mmol/L 0.4-2.0 N Specimen comments: SEPSIS WORKUPTHYROID STIMULATING [id number] 02:23:00 Test Item Value Reference Range Interpretation Comments THYROID STIMULATING HORMONE 1.440 mc IU/ML 0.340-4.820 N (test code = TSH) [id number] 02:23:00 Test Item Value Reference Range Interpretation [...] 6-24 hours if concen trations <2 NG/ML. WBC [id number] 02:13:00 Test Item Value Reference Range Interpretation [...] code = OVAL) FEW ON SCAN NONE DAVID CELLS (test code = BUR) FEW ON SCAN NONE ACANTHOCYTES (test code = FEW ON SCAN NONE ACAN) PLATELET ESTIMATE (test code SL DECR ON SCAN ADEQUATE = PLTEST) CBC W/MANUAL [id number] 02:13:00 Test Item Value Reference Range Interpretation [...] CRITERIA (test code = MDIFF) INDICATED DIFF/SCN LACTIC [id number] 02:07:00 Test Item Value Reference Range Interpretation Comments LACTIC ACID (test 2.9 mmol/L 0.4-2.0 HH Critical v alues after the code = LACT) first occurrenc e are excluded fromca ll documentation requirements fo r this analyte due to thepatient diagnosis or th erapy protocols. Specimen comments: SEPSIS WORKUPTHYROID STIMULATING [id number] 01:58:00 Test Item Value Reference Range Interpretation Comments THYROID STIMULATING HORMONE 1.440 mc IU/ML 0.340-4.820 N (test code = TSH) [id number] 01:58:00 Test Item Value Reference Range Interpretation [...] code = NG/ML 0.00-0.10 PROCAL) THYROID STIMULATING [id number] 01:49:00 Test Item Value Reference Range Interpretation Comments THYROID STIMULATING HORMONE (test mc IU/ML 0.340-4.820 code = TSH) [id number] 01:49:00 Test Item Value Reference Range Interpretation [...] 0.00-0.10 PROCAL) - CT ABD PELVIS W/O [id number] 23:36:00 Patient Name: AMAURI CHAUDHARY Unit No: [id number] EXAMS: CPT CODE: [id number] CT ABD PELVIS W/O CONT 21099 AFTER HOURS SERVICE ON: 04/27/2019 11:32 PM [...] visualized. There is a fluid containing umbilical hernia measuring 6.4 cm. IMPRESSION: Extensive ascites and a nodular cirrhotic appearing liver. Cholelithiasis. No bowel obstruction or free air. Extensive wall thickening of the stomach. Endoscopic correlation recommended. Fluid containing umbilical hernia. at 2336 Reported and signed by: Lizeth España M.D. CC: Oscar Mcleod MD Dictated Date/Time: 04/27/2019 (2336) Technologist: Joselin Sosa CTDI: 10.62 DLP: 1250.01 Trnscrpt: 04/27/2019 (2336) [email or web address] DILLON Solano NAME: NEENA[address] PHYS: UBALDOSRIDEVI. - [place] [address] : 1970 AGE: 48 SEX: F LOC:Petey.CCU23 D PHONE #: [phone] EXAM DATE: 04/27/2019 STATUS: ADM IN FAX #: [phone] RAD #: D/C DT PAGE 1 Signed Report Patient Name: AMAURI CHAUDHARY Unit No: [id number] EXAMS: CPT CODE: [id number] CT ABD PELVIS W/O CONT 25717 (Continued) Orig Print D/T: S: 04/27/2019 (2340) DILLON Solano NAME: NEENA[address] PHYS: EDI. - [place] [address] : 1970 AGE: 48 SEX: F LOC: B.CCU23 D PHONE #: [phone] EXAM DATE: 04/27/2019 STATUS: ADM IN FAX #: [phone] RAD #: D/C DT PAGE 2 Signed ReportLACTIC ACID 2019-04-27 23:20:00 Test Item Value Reference Range Interpretation Comments LACTIC ACID (test 6.2 mmol/L 0.4-2.0 HH ON AT 2318, code = LACT) B.LAB.AR CALLED TO KIMBER[facility] PORTER . The report was conf irmed by read back emery cololiver Y,N:Y . Critica l values after the first occurrence are excluded. Specimen comments: SEPSIS WORKUPPT AND [id number] 22:26:00 Test Item Value Reference Interpretation Comments [...] BE AVOIDED DUE TO POSSIBLE HEPARINCONTAMIN ATION [id number] 22:26:00 Test Item Value Reference Range Interpretation Comments FIBRINOGEN (test code = FIB) 232 mg/dL 192-485 N CBC W/MANUAL [id number] 21:37:00 Test Item Value Reference Range Interpretation [...] = HCT) 2134, B.LAB.GP CALLED TO DEMIAN COOPER. The [...] (test code = MDIFF) INDICATED DIFF/SCN WBC [id number] 21:37:00 Test Item Value Reference Range Interpretation Comments TOTAL CELLS COUNTED (test code = #CELLS >100 TCC) SEGMENTED NEUTROPHILS (test code = % 40-75 SEG) LYMPHOCYTE (test code = LYMPH) % 18.7-40.6 MORPHOLOGY COMMENT (test code = MOC) ON SCAN NORMAL RBCS PLATELET ESTIMATE (test code = ON SCAN ADEQUATE PLTEST) CBC W/MANUAL [id number] 21:37:00 Test Item Value Reference Range Interpretation Comments WHITE BLOOD CELL 11.6 K/mm3 4.1-12.1 N (test code = WBC) RED BLOOD CELL (test 1.88 M/mm3 3.8-5.5 LL code = RBC) HEMOGLOBIN (test 5.6 G/DL 10.6-15.8 LL ON 04/27/19 AT code = HGB) 5, B.LAB.GP CALLED TO RIPAULA SHANNAN. The report was confirmed by re ad back protocols Y,N: Y. HEMATOCRIT (test 17.9 % 31.8-47.4 LL ON 04/27/19 AT code = HCT) 2134, B.LAB.GP [facility] [place] The report was confirmed by re ad [...] (test code = MDIFF) INDICATED DIFF/SCN WBC [id number] 21:37:00 Test Item Value Reference Range Interpretation Comments TOTAL CELLS COUNTED (test code = #CELLS >100 TCC) SEGMENTED NEUTROPHILS (test code = % 40-75 SEG) LYMPHOCYTE (test code = LYMPH) % 18.7-40.6 MORPHOLOGY COMMENT (test code = MOC) ON SCAN NORMAL RBCS PLATELET ESTIMATE (test code = ON SCAN ADEQUATE PLTEST) CALCIUM [id number] 21:33:00 Test Item Value Reference Range Interpretation Comments CALCIUM IONIZED (test code = ELDON) 0.83 mmol/L 1.13-1.32 L - XR CHEST 1 [id number] 21:06:00 FAX: Oscar Mcleod MD [phone] [place]: E St: PRE Patient Name: AMAURI IRWIN Unit No: [id number] EXAMS: CPT CODE: [id number] XR CHEST 1 V 61393 - XR CHEST 1 V, 04/27/2019 8:26 PM Reason For Examination: cp Comparison:None available Location: R16 Findings LUNGS: No definite consolidation, question vascular congestion although exam findings limited by low lung volumes PLEURA: No pleural effusions CARDIOMEDIASTINAL SILHOUETTE Nonspecific prominence of the upper mediastinum is seen possibly reflecting aortic ectasia IMPRESSION: No definite consolidation. Question vascular congestion, evaluation limited by low lungvolumes Nonspecific prominence of the upper mediastinum at 2105 Reported and signed by: Lorena Valderrama M.D. CC: Oscar Mcleod MD Dictated Date/Time: 04/27/2019 (2105)Technologist: James Hernandez Transcribed Date/Time: 04/27/2019(2105) By: [email or web address] Orig Print D/T: S: 04/27/2019 (2108) DILLON Solano NAME: AMAURI IRWIN [address] [place] [address] PHYS: EDI.Oscar Min MD, [place] [address] : 1970 AGE: 48 SEX: F LOC: B.ERS PHONE #: [phone] EXAM DATE: 04/27/2019 STATUS: PRE ER FAX #: RAD NO: DC Dt: PAGE 1 Signed ReportCBC W/MANUAL [id number] 21:05:00 Test Item Value Reference Range Interpretation Comments WHITE BLOOD CELL 14.6 K/mm3 4.1-12.1 H (test code = WBC) RED BLOOD CELL (test 1.07 M/mm3 3.8-5.5 LL code = RBC) HEMOGLOBIN (test 3.2 G/DL 10.6-15.8 LL ON 04/27/19 AT code = HGB) 2028, B.LAB.AK CALLED TO [facility]. The report was confirmed b y read back protocols Y,N: Y. HEMATOCRIT (test 10.8 % 31.8-47.4 LL ON 04/27/19 AT code = HCT) 2030, B.LAB.AK CALLED TO [facility]. The report was confirmed by re ad [...] (test code = MDIFF) INDICATED DIFF/SCN PATHOLOGIST'S [id number] 21:05:00 Test Item Value Reference Range Interpretation Comments PATHOLOGIST'S FINDINGS (test code = EXTERNAL COMMENTS PATH) WBC [id number] 21:05:00 Test Item Value Reference Range Interpretation [...] = MOD ON SCAN NONE A ANISO) DAVID CELLS (test code = BUR) FEW ON SCAN NONE PLATELET ESTIMATE (test code = ADEQ ON SCAN ADEQUATE PLTEST) [id number] 20:50:00 Test Item Value Reference Range Interpretation Comments TROPONIN-I 0.064 NG/ML 0.000-0.045 HH ON 04/27/19 AT 2050, (test code = B.LAB.SRS2 CALL ED TO [facility]) [facility]. The repo rt was confirmed by re [...] istic of [place]. - XR ABDOMEN 1 [id number] 20:44:00 FAX: Oscar Mcleod MD [phone] [place]: E St: PRE Patient Name: AMAURI IRWIN Unit No: [id number] EXAMS: CPT CODE: [id number] XR ABDOMEN 1 V 16521 - XR ABDOMEN 1 V, 04/27/2019 7:44 PM Reason For Examination: abd pain Comparison: None available Location: R16: Findings: Appearance of the abdomen is nearly nondiagnostic s econdary to patient's habitus. No definite prominent small bowel dilation is visualized. Impression:Appearance of the abdomen is nearly nondiagnostic secondary to patient's habitus. No definite prominent small bowel dilation is visualized. Electronically Signed by Lorena Valderrama M.D. on 0 04/27/2019 at 2043 Reported and signed by: Lorena Valderrama M.D. CC: Oscar Mcleod MD DictatedDate/Time: 04/27/2019 (2043)Technologist: James Hernandez Transcribed Date/Time: 04/27/2019 (2043) By: [email or web address] Orig Print D/T: S: 04/27/2019 (2046) DILLON Solano NAME: AMAURI IRWIN [address] [place] [address] PHYS: SIMAL. - Oscar Mcleod MD, [place] [address] : 1970 AGE: 48 SEX: F LOC: B.ERS PHONE #: [phone] EXAM DATE: 04/27/2019 STATUS: PRE ER FAX #: [phone] RAD NO: DC Dt: PAGE 1 Signed [id number] 20:36:00 Test Item Value Reference Range Interpretation Comments MODALITY (test code = MOD) NC COMMENT DESCRIPTION VENOUS BLOOD GAS [id number] 20:36:00 Test Item Value Reference Range Interpretation Comments VENOUS BLOOD GAS PH (test code 7.16 pH units 7.32-7.42 L = PHV) VENOUS BLOOD GAS [id number] 20:36:00 Test Item Value Reference Range Interpretation Comments VENOUS BLOOD GAS PCO2 (test code = 23 mmHg 41-51 L PCO2V) VENOUS BLOOD GAS [id number] 20:36:00 Test Item Value Reference Range Interpretation Comments VENOUS BLOOD GAS PO2 (test code = 23 mmHg 25-40 L PO2V) VBG [id number] 20:36:00 Test Item Value Reference Range Interpretation Comments VBG HCO3 (test code = HCO3V) 8.3 mmol/L 24-28 L VENOUS BLOOD GAS [id number] 20:36:00 Test Item Value Reference Range Interpretation Comments VENOUS BLOOD GAS SITE (test code Venous Site DESCRIPTION = SITEV) COMPREHENSIVE METABOLIC [id number] 20:32:00 Test Item Value Reference Range Interpretation [...] code = LIPINDEX) MG Index/DL CBC W/MANUAL [id number] 20:30:00 Test Item Value Reference Range Interpretation Comments WHITE BLOOD CELL 14.6 K/mm3 4.1-12.1 H (test code = WBC) RED BLOOD CELL (test 1.07 M/mm3 3.8-5.5 LL code = RBC) HEMOGLOBIN (test 3.2 G/DL 10.6-15.8 LL ON 04/27/19 AT code = HGB) 2028, BMagalyLABSUZY CALLED TO [facility]. The report was confirmed b y read back protocols Y,N: Y. HEMATOCRIT (test 10.8 % 31.8-47.4 LL ON 04/27/19 AT code = HCT) 2029, NataliiaLABSUZY CALLED TO [facility]. The report was confirmed by re ad [...] (test code = MDIFF) INDICATED DIFF/SCN PATHOLOGIST'S [id number] 20:30:00 Test Item Value Reference Range Interpretation Comments PATHOLOGIST'S FINDINGS (test code = EXTERNAL COMMENTS PATH) WBC [id number] 20:30:00 Test Item Value Reference Range Interpretation Comments TOTAL CELLS COUNTED (test code = #CELLS >100 TCC) SEGMENTED NEUTROPHILS (test code = % 40-75 SEG) LYMPHOCYTE (test code = LYMPH) % 18.7-40.6 MORPHOLOGY COMMENT (test code = MOC) ON SCAN NORMAL RBCS PLATELET ESTIMATE (test code = ON SCAN ADEQUATE PLTEST) CBC W/MANUAL [id number] 20:30:00 Test Item Value Reference Range Interpretation Comments WHITE BLOOD CELL 14.6 K/mm3 4.1-12.1 H (test code = WBC) RED BLOOD CELL (test 1.07 M/mm3 3.8-5.5 LL code = RBC) HEMOGLOBIN (test 3.2 G/DL 10.6-15.8 LL ON 04/27/19 AT code = HGB) 2028, B.LAB.AK CALLED TO [facility][1]. The report was confirmed b y read back protocols Y,N: Y. HEMATOCRIT (test 10.8 % 31.8-47.4 LL ON 04/27/19 AT code = HCT) B.LAB.AK CALLED TO [facility]. The report was confirmed by re ad [...] (test code = MDIFF) INDICATED DIFF/SCN WBC [id number] 20:30:00 Test Item Value Reference Range Interpretation Comments TOTAL CELLS COUNTED (test code = #CELLS >100 TCC) SEGMENTED NEUTROPHILS (test code = % 40-75 SEG) LYMPHOCYTE (test code = LYMPH) % 18.7-40.6 MORPHOLOGY COMMENT (test code = MOC) ON SCAN NORMAL RBCS PLATELET ESTIMATE (test code = ON SCAN ADEQUATE PLTEST) PT AND [id number] 20:25:00 Test Item Value Reference Interpretation Comments [...] DUE TO POSSIBLE HEPARINCONTAMIN ATION Lactic Acid [id number] 16:54:00 Test Item Value Reference Range Interpretation Comments Lactic Acid Level (test code = 2524-7) 7.3 0.5-2.0 HH Critical Result S_LAC:7.3 Called to and read back by: JOHAN BARTELTT at: 04/27/2019 16:57:46 by:SALVADOR [facility] CenterAlcohols 2019-04-27 16:52:00 Test Item Value Reference Range Interpretation Comments Alcohols (test code = 5643-2) < 5 0-5 [facility] CenterProthrombin [id number] 16:46:00 Test Item Value Reference Range Interpretation Comments Prothrombin Time (test code = 5964-2) 20.0 10.0-12.9 H [facility] CenterINR International Normalized [id number] 16:46:00 Test Item Value Reference Range Interpretation [...] Consensus Conference on Antithrombotic Therapy,Chest 2001; 119:Supplement 8-21.[facility] CenterActivated Partial Thromboplast [id number] 16:46:00 Test Item Value Reference Range Interpretation Comments Activated Partial Thromboplast Time 30.5 25.1-36.5 (test code = 3173-2) [facility]egmented Hwiwgktpvyk3671-01-97 16:36:00 Test Item Value Reference Range Interpretation Comments Segmented Neutrophils (test code = 85 42-75 H 21972-1) [facility] CenterMieqvcawDpjpzpjsuew2372-64-92 16:36:00 Test Item Value Reference Range Interpretation Comments Lymphocytes (test code = 40529-8) 5 20-51 L [facility] CenterMonocytes2019-09-23 16:36:00 Test Item Value Reference Range Interpretation Comments Monocytes (test code = 57530-9) 6 2-9 [facility] CenterGnelqdelZvkuglfxhqq9094-01-80 16:36:00 Test Item Value Reference Range Interpretation Comments Eosinophils (test code = 89604-5) 4 1-4 [facility] CenterNucleated Red Blood [id number] 16:36:00 Test Item Value Reference Range Interpretation Comments Nucleated Red Blood Cells (test code = 3 >0 H 35332-2) [facility] CenterPlatelet [id number] 16:36:00 Test Item Value Reference Range Interpretation Comments Platelet Estimate (test code = ADEQUATE ADEQUATE 48383-8) [facility] CenterPlatelet Wjkvbmcejr1014-90-23 16:36:00 Test Item Value Reference Range Interpretation Comments Platelet Morphology LARGE PLATELETS SEEN NORMAL (test code = 25100-2) [facility] CenterNormal RBC [id number] 16:36:00 Test Item Value Reference Range Interpretation Comments Normal RBC Morphology (test SEE MORPHOLOGY NORMAL code = 16775-6) [facility] CenterHdvxbtxwQyxnzxtwvnupg0008-01-68 16:36:00 Test Item Value Reference Range Interpretation Comments Hypochromasia (test code = 728-6) 1+ NONE A [facility] CenterBlood Urea [id number] 16:13:00 Test Item Value Reference Range Interpretation Comments Blood Urea Nitrogen (test code = 66 8-26 H 3094-0) [facility] CenterCreatinine2019-09-23 16:13:00 Test Item Value Reference Range Interpretation Comments Creatinine (test code = 2160-0) 1.6 0.44-1.00 H [facility] CenterEGFR [id number] 16:13:00 Test Item Value Reference Range Interpretation Comments EGFR Note (test code = 16053-0) 45.6 63.8-143.2 L eGFR (Estimated Glomerular Filtration Rate) eGFR calculation value obtained using the [facility] Medical CenterQuadratic (Q) equation. The reportable reference range isrecommended to be greater than 60 ml/min/1.73m. This is anestimation of the patient's GFR and clinical correlation isrecommended. This eGFR calculation does not account for race. This resultmay differ from other equations available. [facility] CenterAlbumin2019-09-23 16:13:00 Test Item Value Reference Range Interpretation Comments Albumin (test code = 1751-7) 1.5 3.5-5.0 L [facility] CenterTotal Ifeujbldp4797-01-76 16:13:00 Test Item Value Reference Range Interpretation Comments Total Bilirubin (test code = 1975-2) 0.8 0.2-1.2 [facility] CenterAlkaline Bnjayukjvwi0635-00-57 16:13:00 Test Item Value Reference Range Interpretation Comments Alkaline Phosphatase (test code = 129 32-91 H 6768-6) [facility] CenterTotal Pixxdfc7891-64-67 16:13:00 Test Item Value Reference Range Interpretation Comments Total Protein (test code = 2885-2) 5.1 6.5-8.1 L [facility] CenterAlanine Aminotransferase (ALT/SGPT)2019-04-27 16:13:00 Test Item Value Reference Range Interpretation Comments Alanine Aminotransferase (ALT/SGPT) 21 7-55 (test code = 1742-6) [facility] CenterAspartate Amino Transf (AST/SGOT)2019-04-27 16:13:00 Test Item Value Reference Range Interpretation Comments Aspartate Amino Transf (AST/SGOT) (test 53 15-41 H code = 1920-8) [facility] CenterGlobulin2019-09-23 16:13:00 Test Item Value Reference Range Interpretation Comments Globulin (test code = 02704-3) 3.6 2.3-3.5 H [facility] CenterAlbumin/Globulin Gafot2221-06-45 16:13:00 Test Item Value Reference Range Interpretation Comments Albumin/Globulin Ratio (test code = 0.4 1.2-2.2 L 1759-0) [facility] CenterAmylase Mrkfg4844-60-14 16:13:00 Test Item Value Reference Range Interpretation Comments Amylase Level (test code = 1798-8) 77 36-128 [facility] CenterLipase2019-09-23 16:13:00 Test Item Value Reference Range Interpretation Comments Lipase (test code = 3040-3) 62 22-51 H [facility] CenterWhite Blood Pdlms0266-20-62 16:06:00 Test Item Value Reference Range Interpretation Comments White Blood Count (test code = 6690-2) 10.1 4.1-12.9 [facility] CenterRed Blood Ldykq6538-27-67 16:06:00 Test Item Value Reference Range Interpretation Comments Red Blood Count (test code = 789-8) 0.85 3.64-5.20 L [facility] CenterHemoglobin2019-09-23 16:06:00 Test Item Value Reference Range Interpretation Comments Hemoglobin (test code = 718-7) 2.7 10.6-15.6 LL ALERT (CRITICAL) VALUE -CALLED RESULTS TO AND VERBAL READ BACK FROMANICETO GANDARA @ [id number] 04/27/19 LAB.MMACarrollton Regional Medical CenterHematocrit2019-09-23 16:06:00 Test Item Value Reference Range Interpretation Comments Hematocrit (test code = 77206-6) 8.2 32.0-45.9 L [facility] Corpuscular Yvlqan6315-95-87 16:06:00 Test Item Value Reference Range Interpretation Comments Mean Corpuscular Volume (test code = 96.6 74.6-98.2 58361-1) [facility]uscular Wrlupmypym5652-80-30 16:06:00 Test Item Value Reference Range Interpretation Comments Mean Corpuscular Hemoglobin (test code 31.5 24.3-33.8 = 35805-2) [facility]uscular Hgb Concent Mqxg9954-35-58 16:06:00 Test Item Value Reference Range Interpretation Comments Mean Corpuscular Hgb Concent Diff (test 32.6 32.0-36.0 code = 89817-5) [facility] CenterRed Cell Distribution Pznnh2098-55-14 16:06:00 Test Item Value Reference Range Interpretation Comments Red Cell Distribution Width (test code 16.9 11.4-16.3 H = 72712-8) [facility] CenterPlatelet Xhzso2463-13-92 16:06:00 Test Item Value Reference Range Interpretation Comments Platelet Count (test code = 777-3) 197 168-441 [facility] CenterMean Platelet Mcwgxh4018-08-97 16:06:00 Test Item Value Reference Range Interpretation Comments Mean Platelet Volume (test code = 10.3 6.8-10.2 H 64603-5) [facility] CenterGranulocytes (%)2019-04-27 16:06:00 Test Item Value Reference Range Interpretation Comments Granulocytes (%) (test code = 76638-9) 74.3 39.8-78.1 [facility] CenterLymphocytes %2019-04-27 16:06:00 Test Item Value Reference Range Interpretation Comments Lymphocytes % (test code = 736-9) 5.3 14.1-47.6 L [facility] HospitalMonocytes %2019-04-27 16:06:00 Test Item Value Reference Range Interpretation Comments Monocytes % (test code = 5905-5) 18.6 3.8-11.6 H [facility] HospitalEosinophils %2019-04-27 16:06:00 Test Item Value Reference Range Interpretation Comments Eosinophils % (test code = 713-8) 0.6 0.6-7.3 [facility] CenterBasophils %2019-04-27 16:06:00 Test Item Value Reference Range Interpretation Comments Basophils % (test code = 59352-6) 1.2 0.0-2.0 [facility] CenterGranulocytes #2019-04-27 16:06:00 Test Item Value Reference Range Interpretation Comments Granulocytes # (test code = 42744-1) 7.5 1.6-10.1 [facility] CenterLymphocytes #2019-04-27 16:06:00 Test Item Value Reference Range Interpretation Comments Lymphocytes # (test code = 07367-3) 0.5 0.6-6.1 L [facility] CenterMonocytes #2019-04-27 16:06:00 Test Item Value Reference Range Interpretation Comments Monocytes # (test code = 742-7) 1.9 0.2-1.5 H [facility] CenterEosinophils #2019-04-27 16:06:00 Test Item Value Reference Range Interpretation Comments Eosinophils # (test code = 711-2) 0.1 0.0-0.9 [facility] CenterBasophils #2019-04-27 16:06:00 Test Item Value Reference Range Interpretation Comments Basophils # (test code = 78801-4) 0.1 0.0-0.2 [facility] CenterManual Blgxlwawpisf9160-99-68 16:06:00 Test Item Value Reference Range Interpretation Comments Manual Differential (test code = Manual YES Differential) [facility]flugervilleodium Nblrb3756-56-15 16:05:00 Test Item Value Reference Range Interpretation Comments Sodium Level (test code = 2951-2) 131 135-144 L [facility] CenterPotassium Xnzhq0746-24-90 16:05:00 Test Item Value Reference Range Interpretation Comments Potassium Level (test code = 2823-3) 4.2 3.5-5.1 [facility] CenterChloride Nkwzp5451-39-07 16:05:00 Test Item Value Reference Range Interpretation Comments Chloride Level (test code = 2075-0) 105 101-111 [facility] CenterCarbon Dioxide Geniv9890-26-34 16:05:00 Test Item Value Reference Range Interpretation Comments Carbon Dioxide Level (test code = 14 22-32 L 2027-9) [facility] CenterAnion Upm0297-17-38 16:05:00 Test Item Value Reference Range Interpretation Comments Anion Gap (test code = 65280-9) 16.2 10-20 [facility] CenterGlucose Pylvv0581-27-78 16:05:00 Test Item Value Reference Range Interpretation Comments Glucose Level (test code = 2345-7) 119 65-99 H Prediabetes 100 to 125 mg/dlDiabetes 126mg/dl or higher Prediabetes refers to individuals with plasma glucose levelsintermediate between those considered normal and thoseconsidered diabetic and is also referred to as impairedglucose tolerance (IGT) or impaired fasting glucose (IFG). [facility] CenterCalcium Bbqre9563-53-62 16:05:00 Test Item Value Reference Range Interpretation Comments Calcium Level (test code = 78949-5) 7.2 8.9-10.3 L [facility]ood Yuvzhbg4058-71-06 14:23:00 Test Item Value Reference Range Interpretation Comments Blood Culture (test NO GROWTH AT 5 DAYS. code = 600-7) [facility] Dgdbsch4774-30-93 14:23:00 Test Item Value Reference Range Interpretation Comments Blood Culture (test NO GROWTH AT 5 DAYS. code = 600-7) [facility] CenterTumor Marker Alpha Ugvvnqgyqqq8403-91-10 08:25:00 Test Item Value Reference Range Interpretation Comments Tumor Marker Alpha Fetoprotein (test 3.1 0.0-8.3 code = 27584-6) [facility] Electrochemiluminescence Immunoassay(ECLIA) Values obtained with different assay methods or kits cannotbe used interchangeably. Results cannot be interpreted asabsolute evidence of the presence or absence of malignantdisease. This test is not interpretable in females.Performed at: - [facility] [address] [place] [address] [id number] Director: Dagoberto Rodriguez MD, Phone: [phone] Regional Medical CenterMiscellaneous Test Fpudsqd0314-95-41 14:03:00 Test Item Value Reference Range Interpretation Comments Miscellaneous Test Comment (test code = YES YES Miscellaneous Test Comment) [facility] CenterErythrocyte Sedimentation Xxrq3120-90-77 14:03:00 Test Item Value Reference Range Interpretation Comments Erythrocyte Sedimentation Rate (test 117 0-20 H code = 4537-7) [facility] CenterMiscellaneous Test Fypswrb4505-87-52 14:03:00 Test Item Value Reference Range Interpretation Comments Miscellaneous Test Comment (test code = YES YES Miscellaneous Test Comment) [facility] CenterErythrocyte Sedimentation Vbdy6961-22-71 14:03:00 Test Item Value Reference Range Interpretation Comments Erythrocyte Sedimentation Rate (test 117 0-20 H code = 4537-7) [facility] CenterBlood Bpwgmgq5748-10-24 05:49:00 Test Item Value Reference Range Interpretation Comments Blood Culture (test NO GROWTH AT 5 DAYS. code = 600-7) [facility] Ztgyaop5751-88-98 05:49:00 Test Item Value Reference Range Interpretation Comments Blood Culture (test NO GROWTH AT 5 DAYS. code = 600-7) [facility] Qmfuedr0508-39-36 05:49:00 Test Item Value Reference Range Interpretation Comments Blood Culture (test NO GROWTH AT 5 DAYS. code = 600-7) [facility]ervilleodium Obvub2287-04-49 05:16:00 Test Item Value Reference Range Interpretation Comments Sodium Level (test code = 2951-2) 129 135-144 L [facility] CenterPotassium Oqhxq6348-15-83 05:16:00 Test Item Value Reference Range Interpretation Comments Potassium Level (test code = 2823-3) 3.1 3.5-5.1 L [facility] CenterChloride Kgccc9822-28-32 05:16:00 Test Item Value Reference Range Interpretation Comments Chloride Level (test code = 2075-0) 107 101-111 [facility] CenterCarbon Dioxide Tllvg5550-89-29 05:16:00 Test Item Value Reference Range Interpretation Comments Carbon Dioxide Level (test code = 15 22-32 L 8-9) [facility] CenterAnion Dou5060-50-76 05:16:00 Test Item Value Reference Range Interpretation Comments Anion Gap (test code = 79612-5) 10.1 10-20 [facility] CenterGlucose Ehomw5790-87-73 05:16:00 Test Item Value Reference Range Interpretation Comments Glucose Level (test code = 2345-7) 117 65-99 H Prediabetes 100 to 125 mg/dlDiabetes 126 mg/dl or higher Prediabetes refers to individuals with plasma glucose levelsintermediate between those considered normal and thoseconsidered diabetic and is also referred to as impairedglucose tolerance (IGT) or impaired fasting glucose (IFG). [facility] CenterBlood Urea Vneekgfz9183-04-19 05:16:00 Test Item Value Reference Range Interpretation Comments Blood Urea Nitrogen (test code = 15 8- 3094-0) [facility] CenterCreatinine2019-09-12 05:16:00 Test Item Value Reference Range Interpretation Comments Creatinine (test code = 2160-0) 1.0 0.44-1.00 [facility] CenterEGFR Ptez5387-80-08 05:16:00 Test Item Value Reference Range Interpretation Comments EGFR Note (test code = 45961-1) 90.1 63.8-143.2 eGFR (Estimated Glomerular Filtration Rate) eGFR calculation value obtained using the [facility] CenterQuadratic (Q) equation. The reportable reference range isrecommended to be greater than 60 ml/min/1.73m. This is anestimation of the patient's GFR and clinical correlation isrecommended. This eGFR calculation does not account for race. This resultmay differ from other equations available. [facility] CenterCalcium Fmfly3177-07-71 05:16:00 Test Item Value Reference Range Interpretation Comments Calcium Level (test code = 93572-8) 7.6 8.9-10.3 L [facility] Blood Hrtor3048-26-76 05:05:00 Test Item Value Reference Range Interpretation Comments White Blood Count (test code = 6690-2) 8.1 4.1-12.9 [facility] Blood Qassa8215-73-85 05:05:00 Test Item Value Reference Range Interpretation Comments Red Blood Count (test code = 789-8) 2.54 3.64-5.20 L [facility] CenterHemoglobin2019-09-12 05:05:00 Test Item Value Reference Range Interpretation Comments Hemoglobin (test code = 718-7) 8.0 10.6-15.6 L [facility] CenterHematocrit2019-09-12 05:05:00 Test Item Value Reference Range Interpretation Comments Hematocrit (test code = 33201-2) 23.3 32.0-45.9 L [facility] Corpuscular Xxmyhe6625-42-87 05:05:00 Test Item Value Reference Range Interpretation Comments Mean Corpuscular Volume (test code = 91.8 74.6-98.2 89803-5) [facility] Corpuscular Gumixafkki2330-44-13 05:05:00 Test Item Value Reference Range Interpretation Comments Mean Corpuscular Hemoglobin (test code 31.6 24.3-33.8 = 48028-0) [facility] Corpuscular Hgb Concent Ntpr2585-74-66 05:05:00 Test Item Value Reference Range Interpretation Comments Mean Corpuscular Hgb Concent Diff (test 34.4 32.0-36.0 code = 39617-0) [facility] CenterRed Cell Distribution Djbwd8235-64-60 05:05:00 Test Item Value Reference Range Interpretation Comments Red Cell Distribution Width (test code 15.6 11.4-16.3 = 62665-7) [facility] CenterPlatelet Ctajy3603-01-58 05:05:00 Test Item Value Reference Range Interpretation Comments Platelet Count (test code = 777-3) 179 168-441 [facility] Platelet Ystpay4165-12-40 05:05:00 Test Item Value Reference Range Interpretation Comments Mean Platelet Volume (test code = 8.9 6.8-10.2 26418-1) [facility] CenterGranulocytes (%)2019-04-16 05:05:00 Test Item Value Reference Range Interpretation Comments Granulocytes (%) (test code = 14127-6) 79.9 39.8-78.1 [facility] %2019-04-16 05:05:00 Test Item Value Reference Range Interpretation Comments Lymphocytes % (test code = 736-9) 2.6 14.1-47.6 L [facility] HospitalMonocytes %2019-04-16 05:05:00 Test Item Value Reference Range Interpretation Comments Monocytes % (test code = 5905-5) 15.3 3.8-11.6 H [facility] HospitalEosinophils %2019-04-16 05:05:00 Test Item Value Reference Range Interpretation Comments Eosinophils % (test code = 713-8) 1.6 0.6-7.3 [facility] CenterBasophils %2019-04-16 05:05:00 Test Item Value Reference Range Interpretation Comments Basophils % (test code = 70582-9) 0.6 0.0-2.0 [facility] CenterGranulocytes #2019-04-16 05:05:00 Test Item Value Reference Range Interpretation Comments Granulocytes # (test code = 69102-7) 6.5 1.6-10.1 [facility] CenterLymphocytes #2019-04-16 05:05:00 Test Item Value Reference Range Interpretation Comments Lymphocytes # (test code = 27105-9) 0.2 0.6-6.1 L [facility] CenterMonocytes #2019-04-16 05:05:00 Test Item Value Reference Range Interpretation Comments Monocytes # (test code = 742-7) 1.2 0.2-1.5 [facility] CenterEosinophils #2019-04-16 05:05:00 Test Item Value Reference Range Interpretation Comments Eosinophils # (test code = 711-2) 0.1 0.0-0.9 [facility] CenterBasophils #2019-04-16 05:05:00 Test Item Value Reference Range Interpretation Comments Basophils # (test code = 19715-9) 0.0 0.0-0.2 [facility] CenterManual Wxkepbxhzlhg2583-40-39 05:05:00 Test Item Value Reference Range Interpretation Comments Manual Differential (test code = Manual NO Differential) [facility] CenterBlood Zdnzvmc1137-02-03 08:16:00 Test Item Value Reference Range Interpretation Comments Blood Culture (test code NO GROWTH AT 48 HRS = 600-7) [facility] CenterVancomycin Level Klxygt0022-23-26 07:38:00 Test Item Value Reference Range Interpretation Comments Vancomycin Level Trough (test code = 19.8 10-15 H 4092-3) [facility] CenterVancomycin Level Ephsvs0536-01-82 07:38:00 Test Item Value Reference Range Interpretation Comments Vancomycin Level Trough (test code = 19.8 10-15 H 4092-3) [facility] CenterAlbumin2019-09-08 05:51:00 Test Item Value Reference Range Interpretation Comments Albumin (test code = 1751-7) 2.1 3.5-5.0 L [facility]tal Gudrcciju8165-45-47 05:51:00 Test Item Value Reference Range Interpretation Comments Total Bilirubin (test code = 1975-2) 1.1 0.2-1.2 [facility] CenterAlkaline Hyxjkqvzfwr1533-87-05 05:51:00 Test Item Value Reference Range Interpretation Comments Alkaline Phosphatase (test code = 108 32-91 H 6768-6) [facility] Hospitaltal Gymdcrh9290-62-87 05:51:00 Test Item Value Reference Range Interpretation Comments Total Protein (test code = 2885-2) 5.9 6.5-8.1 L [facility] CenterAlanine Aminotransferase (ALT/SGPT)2019-04-12 05:51:00 Test Item Value Reference Range Interpretation Comments Alanine Aminotransferase (ALT/SGPT) 33 7-55 (test code = 1742-6) [facility] CenterAspartate Amino Transf (AST/SGOT)2019-04-12 05:51:00 Test Item Value Reference Range Interpretation Comments Aspartate Amino Transf (AST/SGOT) (test 64 15-41 H code = 1920-8) [facility] CenterGlobulin2019-09-08 05:51:00 Test Item Value Reference Range Interpretation Comments Globulin (test code = 04825-8) 3.8 2.3-3.5 H [facility] CenterAlbumin/Globulin Oprma3760-85-62 05:51:00 Test Item Value Reference Range Interpretation Comments Albumin/Globulin Ratio (test code = 0.6 1.2-2.2 L 1759-0) [facility] CenterUrine Jvklmvy7792-26-18 06:12:00 Test Item Value Reference Range Interpretation Comments Urine Culture (test Organism: Escherichia code = 630-4) Coli [facility] CenterUrine Qqvhiqs0549-45-85 06:12:00 Test Item Value Reference Range Interpretation Comments Urine Culture (test Organism: Escherichia code = 630-4) Coli [facility] CenterHemoglobin2019-09-05 15:43:00 Test Item Value Reference Range Interpretation Comments Hemoglobin (test code = 718-7) 8.0 10.6-15.6 L [facility] CenterHematocrit2019-09-05 15:43:00 Test Item Value Reference Range Interpretation Comments Hematocrit (test code = 26373-3) 24.1 32.0-45.9 L [facility] CenterHemoglobin2019-09-05 15:43:00 Test Item Value Reference Range Interpretation Comments Hemoglobin (test code = 718-7) 8.0 10.6-15.6 L [facility]oc[facility]-05 15:43:00 Test Item Value Reference Range Interpretation Comments Hematocrit (test code = 52245-6) 24.1 32.0-45.9 L [facility] Loqtpfm2137-50-15 08:19:00 Test Item Value Reference Range Interpretation Comments Blood Culture (test Organism: Group G code = 600-7) Streptococcus [facility] Ofjmzib4856-68-15 08:19:00 Test Item Value Reference Range Interpretation Comments Blood Culture (test Organism: Group G code = 600-7) Streptococcus [facility] CenterGlucose (Fingerstick)2019-04-08 17:31:00 Test Item Value Reference Range Interpretation Comments Glucose (Fingerstick) (test code = 207 65-99 H 12889-1) [facility] CenterGlucose (Fingerstick)2019-04-08 17:31:00 Test Item Value Reference Range Interpretation Comments Glucose (Fingerstick) (test code = 207 65-99 H 00694-3) [facility] CenterBody Fluid Segmented Krhbwknuxhw1822-04-14 15:46:00 Test Item Value Reference Range Interpretation Comments Body Fluid Segmented Neutrophils (test 96 code = 95928-4) [facility] CenterBody Fluid Lqtfdpvlyno8129-65-92 15:46:00 Test Item Value Reference Range Interpretation Comments Body Fluid Lymphocytes (test code = 4 66515-9) [facility]#CELLS MFZGKJC5346-26-64 15:46:00 Test Item Value Reference Range Interpretation Comments #CELLS COUNTED (test code = #CELLS 100 COUNTED) [facility] Fluid Segmented Jbkngwyohyz8007-85-54 15:46:00 Test Item Value Reference Range Interpretation Comments Body Fluid Segmented Neutrophils (test 96 code = 05615-4) [facility] Fluid Uveefjuufqr2403-10-94 15:46:00 Test Item Value Reference Range Interpretation Comments Body Fluid Lymphocytes (test code = 4 56727-6) [facility]#CELLS KJFXXNZ8169-97-31 15:46:00 Test Item Value Reference Range Interpretation Comments #CELLS COUNTED (test code = #CELLS 100 COUNTED) [facility] Fluid Xrhm2106-83-56 15:31:00 Test Item Value Reference Range Interpretation Comments Body Fluid Type (test code = PERITONEAL FLUID 77415-6) [facility] Fluid [id number] 15:31:00 Test Item Value Reference Range Interpretation Comments Body Fluid RBC (test code = 70429-7) 200 0-10 H [facility] Fluid TKW5068-39-28 15:31:00 Test Item Value Reference Range Interpretation Comments Body Fluid WBC (test code = 04312-5) 2200 0-20 H [facility]#GCKRTHZAZK8000-66-56 15:31:00 Test Item Value Reference Range Interpretation Comments #CONTAINERS (test code = #CONTAINERS) 1 [facility] CenterBF TOTAL [id number] 15:31:00 Test Item Value Reference Range Interpretation Comments BF TOTAL VOLUME (test code = BF TOTAL 1000 VOLUME) [facility] QDLPWHRP6883-59-87 15:31:00 Test Item Value Reference Range Interpretation Comments SPECIMEN ADEQUACY (test code = ADEQUATE SPECIMEN ADEQUACY) [facility] Fluid Rfss0636-31-19 15:31:00 Test Item Value Reference Range Interpretation Comments Body Fluid Type (test code = PERITONEAL FLUID 03865-6) [facility] Fluid [id number] 15:31:00 Test Item Value Reference Range Interpretation Comments Body Fluid RBC (test code = 09304-6) 200 0-10 H [facility] Fluid [id number] 15:31:00 Test Item Value Reference Range Interpretation Comments Body Fluid WBC (test code = 02200-8) 2200 0-20 H [facility]#NIHKZASHCQ2178-50-34 15:31:00 Test Item Value Reference Range Interpretation Comments #CONTAINERS (test code = #CONTAINERS) 1 [facility] CenterBF TOTAL [id number] 15:31:00 Test Item Value Reference Range Interpretation Comments BF TOTAL VOLUME (test code = BF TOTAL 1000 VOLUME) [facility] QBLRLNMC2569-68-69 15:31:00 Test Item Value Reference Range Interpretation Comments SPECIMEN ADEQUACY (test code = ADEQUATE SPECIMEN ADEQUACY) [facility] Smear Pathologist Ccxfam5371-25-19 14:25:00 Test Item Value Reference Range Interpretation Comments Blood Smear Pathologist PANCYTOPENIA. Review (test code = [place] [address]-0) BLASTS, SCHISTOCYTES, OR PLATELET CLUMPS IDENTFIED. DR. REEVES; LAB.[facility] Smear Pathologist Zbtqqt5013-82-13 14:25:00 Test Item Value Reference Range Interpretation Comments Blood Smear Pathologist PANCYTOPENIA. Review (test code = [place] [address]-2) BLASTS, SCHISTOCYTES, OR PLATELET CLUMPS IDENTFIED. DR. REEVES; LAB.[facility] Actkj3713-21-26 13:03:00 Test Item Value Reference Range Interpretation Comments Cholesterol Level (test code = 2093-3) 71 0-200 [facility] CenterTriglycerides Bcara5248-53-08 13:03:00 Test Item Value Reference Range Interpretation Comments Triglycerides Level (test code = 34 10-150 2571-8) Normal triglycerides: <150 mg/dLBorderline-high triglycerides: 150-199 mg/dLHigh triglycerides: 200-499 mg/dLVery high triglycerides: > or = 500 mg/dLCarrollton Regional Medical CenterHDL Ychxhoubvlm5556-03-27 13:03:00 Test Item Value Reference Range Interpretation Comments HDL Cholesterol (test code = 2085-9) 23.1 40-130 L [facility]/[id number] 13:03:00 Test Item Value Reference Range Interpretation Comments N/A (test code = 50704-3) 3.1 0.0-5.0 [facility] CenterLDL Cholesterol (Measured)2019-04-08 13:03:00 Test Item Value Reference Range Interpretation Comments LDL Cholesterol (Measured) (test code = 37 0-130 76125-0) *LDL Cholesterol <130 mg/dL, No CHD or CHD Risk Equivalent <100 mg/dL, With CHD or CHD Risk Equivalent LDL Cholesterol Therapeutic Goal:100 mg/dL or Less if CHD or CHD Risk Equivalent Present<130 mg/dL if No CHD or REq; 2 or more Risk Factors<160 mg/dL if No CHD or REq; 0-1 Risk Factors Reference: ATP III, SALVATORE, 285:19, 2051-54, 2001.[facility] CenterThyroid Stimulating Hormone (TSH)2019-04-08 13:03:00 Test Item Value Reference Range Interpretation Comments Thyroid Stimulating Hormone (TSH) (test 1.83 0.34-5.6 code = 3015-5) [facility] CenterCholesterol Cixbu1980-41-16 13:03:00 Test Item Value Reference Range Interpretation Comments Cholesterol Level (test code = 2093-3) 71 0-200 [facility] CenterTriglycerides Jmlmx1649-34-74 13:03:00 Test Item Value Reference Range Interpretation Comments Triglycerides Level (test code = 34 10-150 2571-8) Normal triglycerides: <150 mg/dLBorderline-high triglycerides: 150-199 mg/dLHigh triglycerides: 200-499 mg/dLVery high triglycerides: > or = 500 mg/dLHuThe Hospitals [facility] Providence [facility] CampusHDL Eeyudokvnmd3708-63-54 13:03:00 Test Item Value Reference Range Interpretation Comments HDL Cholesterol (test code = 2085-9) 23.1 40-130 L [facility] CenterN/[id number] 13:03:00 Test Item Value Reference Range Interpretation Comments N/A (test code = 66967-9) 3.1 0.0-5.0 [facility] CenterLDL Cholesterol (Measured)2019-04-08 13:03:00 Test Item Value Reference Range Interpretation Comments LDL Cholesterol (Measured) (test code = 37 0-130 97126-2) *LDL Cholesterol <130 mg/dL, No CHD or CHD Risk Equivalent <100 mg/dL, With CHD or CHD Risk Equivalent LDL Cholesterol Therapeutic Goal:100 mg/dL or Less if CHD or CHD Risk Equivalent Present<130 mg/dL if No CHD or REq; 2 or more Risk Factors<160 mg/dL if No CHD or REq; 0-1 Risk Factors Reference: ATP III, SALVATORE, 285:19, 0886-97, 2000.[facility] CenterThyroid Stimulating Hormone (TSH)2019-04-08 13:03:00 Test Item Value Reference Range Interpretation Comments Thyroid Stimulating Hormone (TSH) (test 1.83 0.34-5.6 code = 3015-5) [facility] CenterHemoglobin A1c Gquzzbp0197-52-02 12:52:00 Test Item Value Reference Range Interpretation Comments Hemoglobin A1c Percent (test code = 5.10 4.0-5.6 4548-4) Prediabetes 5.7% to 6.4%Diabetes 6.5% orhigher Elevated levels of HbA1c suggest the need for moreaggressive treatment of glycemia. The [place] [employer] recommends that a primary goal of therapy shouldbe a HbA1c of <7% and that physicians should reevaluate thetreatment regimen in patients with HbA1c values consistently>8%. [facility] CenterN/[id number] 12:52:00 Test Item Value Reference Range Interpretation Comments N/A (test code = 17650-9) 101 A1C Result% Estimated Avg.Glucose (EAG) 6.0% 126 mg/dL 6.5% 140 mg/dL 7.0% 154 mg/dL 7.5% 169 mg/dL 8.0% 183 mg/dL 8.5% 197 mg/dL 9.0% 212 mg/dL 9.5% 226 mg/dL10.0% 240 mg/dL Reference: ross Montero, Diabetes Care 31: 1437, 2008. [facility] CenterHemoglobin A1c [id number] 12:52:00 Test Item Value Reference Range Interpretation Comments Hemoglobin A1c Percent (test code = 5.10 4.0-5.6 4548-4) Prediabetes 5.7% to 6.4%Diabetes 6.5% orhigher Elevated levels of HbA1c suggest the need for moreaggressive treatment of glycemia. The [place] [employer] recommends that a primary goal of therapy shouldbe a HbA1c of <7% and that physicians should reevaluate thetreatment regimen in patients with HbA1c values consistently>8%. [facility]/[id number] 12:52:00 Test Item Value Reference Range Interpretation Comments N/A (test code = 51465-3) 101 A1C Result% Estimated Avg.Glucose (EAG) 6.0% 126 mg/dL 6.5% 140 mg/dL 7.0% 154 mg/dL 7.5% 169 mg/dL 8.0% 183 mg/dL 8.5% 197 mg/dL 9.0% 212 mg/dL 9.5% 226 mg/dL10.0% 240 mg/dL Reference: ross Montero, Diabetes Care 31: 1437, 2008. [facility]/[id number] 12:25:00 Test Item Value Reference Range Interpretation [...] recommended.Repeat testing recommended prior to treatment. Desirable [facility]/[id number] 12:25:00 Test Item Value Reference Range Interpretation [...] recommended.Repeat testing recommended prior to treatment. Desirable LevelsCarrollton Regional Medical CenterProthrombin [id number] 11:12:00 Test Item Value Reference Range Interpretation Comments Prothrombin Time (test code = 5964-2) 15.0 10.0-12.9 H [facility] CenterINR International Normalized Sgxxg6532-89-68 11:12:00 Test Item Value Reference Range Interpretation [...] Consensus Conference on Antithrombotic Therapy,Chest 2001; 119:Supplement 8-21.[facility] CenterActivated Partial Thromboplast [id number] 11:12:00 Test Item Value Reference Range Interpretation Comments Activated Partial Thromboplast Time 35.1 25.1-36.5 (test code = 3173-2) [facility] CenterUrine Wjvgk2797-90-64 01:06:00 Test Item Value Reference Range Interpretation Comments Urine Color (test code = 65896-1) [place] YELLOW A Substances that cause abnormal urine color may affect thereadability of test pads on urinalysis reagent strips. Thesesubstances include visible levels of blood or bilirubin anddrugs containing dyes (e.g., Pyridium, Azo Gantrisin, AzoGantanol), nitrofurantion (Macrodantin, Furadantin), orriboflavin.[facility] Nclhgee5831-79-75 01:06:00 Test Item Value Reference Range Interpretation Comments Urine Clarity (test code = 17878-2) Cloudy CLEAR A [facility] Edqyhpw2315-52-20 01:06:00 Test Item Value Reference Range Interpretation Comments Urine Glucose (test code = 5792-7) NEGATIVE NEGATIVE [facility] Nfefvquun1792-32-61 01:06:00 Test Item Value Reference Range Interpretation Comments Urine Bilirubin (test code = 5770-3) SMALL NEGATIVE A [facility] Ckjlqqy4849-73-20 01:06:00 Test Item Value Reference Range Interpretation Comments Urine Ketones (test code = 5797-6) NEGATIVE NEGATIVE [facility] Specific Fyuhbeo1741-90-59 01:06:00 Test Item Value Reference Range Interpretation Comments Urine Specific [place] (test code = 1.049 1.002-1.030 H 5811-5) [facility] Xwrye7291-77-55 01:06:00 Test Item Value Reference Range Interpretation Comments Urine Blood (test code = 44992-8) LARGE NEGATIVE A [facility] [id number] 01:06:00 Test Item Value Reference Range Interpretation Comments Urine pH (test code = 5803-2) 5 5.0-8.0 [facility] Tmgsjnd2408-89-52 01:06:00 Test Item Value Reference Range Interpretation Comments Urine Protein (test code = 5804-0) NEGATIVE NEGATIVE [facility] Kwwjbrvyzpnc0683-29-66 01:06:00 Test Item Value Reference Range Interpretation Comments Urine Urobilinogen (test code = 2.0 NEGATIVE A 45068-6) [facility] Yoxntvb4348-68-72 01:06:00 Test Item Value Reference Range Interpretation Comments Urine Nitrite (test code = 5802-4) NEGATIVE NEGATIVE [facility] Leukocyte Htoncyhe8994-70-13 01:06:00 Test Item Value Reference Range Interpretation Comments Urine Leukocyte Esterase (test code = 250 NEGATIVE A 43612-5) [facility] [id number] 01:06:00 Test Item Value Reference Range Interpretation Comments Urine RBC (test code = 65220-1) 15-30 0-2 A [facility] [id number] 01:06:00 Test Item Value Reference Range Interpretation Comments Urine WBC (test code = 24478-6) 6-14 0-5 A "Urine Culture test was reflexed and added to this specimen"[facility] Squamous Epithelial Mprud4274-27-65 01:06:00 Test Item Value Reference Range Interpretation Comments Urine Squamous Epithelial Cells (test 3-5 0-5 code = 05769-6) [facility] Mtndprnu4486-38-64 01:06:00 Test Item Value Reference Range Interpretation Comments Urine Bacteria (test code = 03607-8) RARE NEGATIVE A [facility] WBC Xlynly2831-31-95 01:06:00 Test Item Value Reference Range Interpretation Comments Urine WBC Clumps (test code = 54040-7) 6-14 NEGATIVE A [facility] Amorphous Njnwwurk5032-57-27 01:06:00 Test Item Value Reference Range Interpretation Comments Urine Amorphous Crystals (test code = RARE NEGATIVE A 94473-4) [facility] Aweby9963-65-94 01:06:00 Test Item Value Reference Range Interpretation Comments Urine Mucus (test code = 60987-9) 1+ NEGATIVE [facility] Mkpge4880-04-96 01:06:00 Test Item Value Reference Range Interpretation Comments Urine Color (test code = 95537-9) [place] YELLOW A Substances that cause abnormal urine color may affect thereadability of test pads on urinalysis reagent strips. Thesesubstances include visible levels of blood or bilirubin anddrugs containing dyes (e.g., Pyridium, Azo Gantrisin, AzoGantanol), nitrofurantion (Macrodantin, Furadantin), orriboflavin.[facility] Jzdjiac0232-83-85 01:06:00 Test Item Value Reference Range Interpretation Comments Urine Clarity (test code = 16402-0) Cloudy CLEAR A [facility] Kszthxv7136-88-29 01:06:00 Test Item Value Reference Range Interpretation Comments Urine Glucose (test code = 5792-7) NEGATIVE NEGATIVE [facility] [id number] 01:06:00 Test Item Value Reference Range Interpretation Comments Urine Bilirubin (test code = 5770-3) SMALL NEGATIVE A [facility] [id number] 01:06:00 Test Item Value Reference Range Interpretation Comments Urine Ketones (test code = 5797-6) NEGATIVE NEGATIVE [facility] Specific [id number] 01:06:00 Test Item Value Reference Range Interpretation Comments Urine Specific [place] (test code = 1.049 1.002-1.030 H 5811-5) [facility] [id number] 01:06:00 Test Item Value Reference Range Interpretation Comments Urine Blood (test code = 47089-4) LARGE NEGATIVE A [facility] [id number] 01:06:00 Test Item Value Reference Range Interpretation Comments Urine pH (test code = 5803-2) 5 5.0-8.0 [facility] Ornnjrh4666-14-05 01:06:00 Test Item Value Reference Range Interpretation Comments Urine Protein (test code = 5804-0) NEGATIVE NEGATIVE [facility] Pqrvfjqeohmr5360-40-86 01:06:00 Test Item Value Reference Range Interpretation Comments Urine Urobilinogen (test code = 2.0 NEGATIVE A 66619-9) [facility] [id number] 01:06:00 Test Item Value Reference Range Interpretation Comments Urine Nitrite (test code = 5802-4) NEGATIVE NEGATIVE [facility] Leukocyte Ebrqyrxy3893-90-94 01:06:00 Test Item Value Reference Range Interpretation Comments Urine Leukocyte Esterase (test code = 250 NEGATIVE A 98158-1) [facility] [id number] 01:06:00 Test Item Value Reference Range Interpretation Comments Urine RBC (test code = 37366-0) 15-30 0-2 A [facility] [id number] 01:06:00 Test Item Value Reference Range Interpretation Comments Urine WBC (test code = 95275-6) 6-14 0-5 A "Urine Culture test was reflexed and added to this specimen"[facility] Squamous Epithelial Odwvr7567-25-28 01:06:00 Test Item Value Reference Range Interpretation Comments Urine Squamous Epithelial Cells (test 3-5 0-5 code = 86307-2) [facility] Ewggcxal0480-41-51 01:06:00 Test Item Value Reference Range Interpretation Comments Urine Bacteria (test code = 62612-1) RARE NEGATIVE A [facility] WBC Zjkfqt9243-03-01 01:06:00 Test Item Value Reference Range Interpretation Comments Urine WBC Clumps (test code = 38939-5) 6-14 NEGATIVE A [facility] Amorphous Miwgbwos3116-83-06 01:06:00 Test Item Value Reference Range Interpretation Comments Urine Amorphous Crystals (test code = RARE NEGATIVE A 31886-9) [facility] Wuayv4753-86-54 01:06:00 Test Item Value Reference Range Interpretation Comments Urine Mucus (test code = 62730-8) 1+ NEGATIVE [facility] (1&2) Ag and Ab, 4th Rcwfxspfre7141-08-43 22:41:00 Test Item Value Reference Range Interpretation Comments HIV (1&2) Ag and Ab, 4th NONREACTIVE NONREACTIVE Generation (test code = 86398-3) Limitations -The interpretation of specimens with a [...] patients may give false positive test results. [facility] Ag and Ab, 4th Fxlchfztia5219-26-84 22:41:00 Test Item Value Reference Range Interpretation Comments HIV (1&2) Ag and Ab, 4th NONREACTIVE NONREACTIVE Generation (test code = 75904-5) Limitations -The interpretation of specimens with a [...] patients may give false positive test results. [facility] CenterL[facility] Acid [id number] 22:16:00 Test Item Value Reference Range Interpretation Comments Lactic Acid Level (test code = 2524-7) 2.2 0.5-2.0 Critical Result S_LAC:2.2 Called to and read back by: ADAL POMPA at: 04/07/2019 22:19:39 by:[facility] Neutrophils 2019-04-07 19:12:00 Test Item Value Reference Range Interpretation Comments Segmented Neutrophils (test code = 42 42-75 61111-3) [facility] CenterBand Atypfnvlcun7841-77-34 19:12:00 Test Item Value Reference Range Interpretation Comments Band Neutrophils (test code = 69169-5) 16 2-10 H [facility] CenterHbvzrsfbBgxbbvxzeyv7654-41-91 19:12:00 Test Item Value Reference Range Interpretation Comments Lymphocytes (test code = 84249-0) 30 20-51 [facility] CenterMonocytes2019-09-03 19:12:00 Test Item Value Reference Range Interpretation Comments Monocytes (test code = 60817-9) 10 2-9 H [facility] CenterBvcaylsvRvjrzfbhtbd6259-09-01 19:12:00 Test Item Value Reference Range Interpretation Comments Eosinophils (test code = 58896-1) 2 1-4 [facility] CenterPlatelet Ievrcwbo8580-54-18 19:12:00 Test Item Value Reference Range Interpretation Comments Platelet Estimate (test code = DECREASED ADEQUATE A 53802-9) [facility] CenterPlatelet Jqbsmgmvhm2400-36-13 19:12:00 Test Item Value Reference Range Interpretation Comments Platelet Morphology (test code = NORMAL NORMAL 55433-6) [facility] CenterNormal RBC [id number] 19:12:00 Test Item Value Reference Range Interpretation Comments Normal RBC Morphology (test code = NORMAL NORMAL 22930-7) [facility] Center[facility] Xikzqeuoufg3347-50-09 19:12:00 Test Item Value Reference Range Interpretation Comments Band Neutrophils (test code = 48419-0) 16 2-10 H [facility] CenterBASIC METABOLIC [id number] 05:46:00 Test Item Value Reference Range Interpretation [...] 697) EGFR (BEAKER) (test 64 mL/min/1.73 ESTIMA JEAN CLAUDE GFR IS code = 1092) sq m NOT ACCURATE CREATININE CLEARANCE IN PREDICTING GLOMERULAR FILTRATION RATE . ESTIMATED GFR I S NOT APPLICABLE FOR DIALYSIS PATIEN TS. CBC W/PLT COUNT & AUTO [id number] 05:30:00 Test Item Value Reference Range Interpretation [...] (BEAKER) (test code = 2801) BASIC METABOLIC [id number] 07:48:00 Test Item Value Reference Range Interpretation [...] 697) EGFR (BEAKER) (test 72 mL/min/1.73 ESTIMA JEAN CLAUDE GFR IS code = 1092) sq m NOT ACCURATE CREATININE CLEARANCE IN PREDICTING GLOMERULAR FILTRATION RATE . ESTIMATED GFR I S NOT APPLICABLE FOR DIALYSIS PATIEN TS. CBC W/PLT COUNT & AUTO [id number] 07:40:00 Test Item Value Reference Range Interpretation [...] PERCENT (BEAKER) (test code = 2801) U/S, [id number] 17:49:00TherapeuticReason for exam:- >AscitesShould this be performed at the bedside?->NoFINAL REPORT Paracentesis dated 12/06/2018 Procedure: Ultrasound-guided paracentes is. Preprocedure diagnosis: Ascites Postprocedure diagnosis: Ascites Conscious sedation: None. Radiologist: Laure Jules M.D. Sales Specialist: None Anesthesia: 1% Xylocaine mixed with sodium bicarbonate localanesthesia. Technique: After obtaining informed consent, ultrasound-guided paracentesis was performed under usual sterile technique. Using a 5 dominican drainage catheter, puncture was made in the right lower quadrant abdomen. Approximately 11,500 cc of serous fluid was removed. Patient tolerated the procedure well without complication. Complication: None Graft/Implant: None Estimated Blood Loss: None Impression: Ultrasound-guided paracentesis. Signed: Laure Jules MDReport Verified Date/Time: 12/06/2018 17:49:10 Reading Location: [facility] B1 C013W Consult Reading Room APTT 2018-12-06 15:10:00 Test Item Value Reference Range Interpretation Comments PARTIAL THROMBOPLASTIN TIME 35.9 seconds 22.5-36.0 (BEAKER) (test code = 760) PROTHROMBIN TIME/[id number] 15:09:00 Test Item Value Reference Range Interpretation [...] 0-100 (test code = 700) COMPREHENSIVE METABOLIC [id number] 13:12:00 Test Item Value Reference Range Interpretation [...] 347) EGFR (BEAKER) (test 89 mL/min/1.73 ESTIMA JEAN CLAUDE GFR IS code = 1092) sq m NOT ACCURATE CREATININE CLEARANCE IN PREDICTING GLOMERULAR FILTRATION RATE . ESTIMATED GFR I S NOT APPLICABLE FOR DIALYSIS PATIEN TS. CBC W/PLT COUNT & AUTO [id number] 13:05:00 Test Item Value Reference Range Interpretation [...] 0-1 PERCENT (BEAKER) (test code = 2801) [id number] 13:02:00 Test Item Value Reference Range Interpretation Comments AMMONIA (BEAKER) (test code = 348) 62 mol/L 18-72 U/S, [id number] 08:43:00Reason for exam:->ascitesReason for exam:->possible sbpShould this be performed at the bedside?->YesFINAL REPORT Ultrasound guided paracentesis, 05/23/2018. Clinical History: Ascites. Sedation: None. Child Protection Specialist: Mckenzie. Sales Specialist: None. Estimated Blood Loss: < 1 cc. [...] was achieved with 1% lidocaine, a 5 Chadian one-step catheter was advanced into the peritoneal cavity under ultrasound guidance. After completion of drainage, the catheter was removed. There was no evidence of complication. Patient Disposition: The patient was discharged from the ultrasound department after the paracentesis, in good condition. Impression:Successful ultrasound guided paracentesis. Signed: Pino Chin Verified Date/Time: 06/02/2018 08:43:07 Reading Location: [address] Body Reading Room BODY FLUID CULTURE + GRAM [id number] 08:26:00 Test Item Value Reference Range Interpretation Comments CULTURE (BEAKER) (test code No growth = 1095) GRAM STAIN RESULT (BEAKER) 2+ WBCs (test code = 1123) GRAM STAIN RESULT (BEAKER) No organisms seen (test code = 53771) BLOOD [id number] 19:00:00 Test Item Value Reference Range Interpretation Comments CULTURE (BEAKER) (test No growth in 5 days code = 1095) BLOOD [id number] 19:00:00 Test Item Value Reference Range Interpretation Comments CULTURE (BEAKER) (test No growth in 5 days code = 1095) BODY FLUID CELL COUNT WITH [id number] 15:04:00 Test Item Value Reference Range Interpretation [...] (BEAKER) (test code = malignant cells. 2619) [id number] Stanislav Sofia M.D. (BEAKER) (test code = (electronic 2620) signature) CONTAINER BODY FLUID Sterile Cup (BEAKER) (test code = 2873) BASIC METABOLIC [id number] 03:33:00 Test Item Value Reference Range Interpretation [...] 697) EGFR (BEAKER) (test 37 mL/min/1.73 ESTIMA JEAN CLAUDE GFR IS code = 1092) sq m NOT ACCURATE CREATININE CLEARANCE IN PREDICTING GLOMERULAR FILTRATION RATE . ESTIMATED GFR I S NOT APPLICABLE FOR DIALYSIS PATIEN TS. Specimen slightly ictericU/S, [id number] 16:05:00Reason for exam:- >ascites, please only remove about 3L, pt with ZUNILDA too, dont want to shift fluidbalanceFINAL REPORT Ultrasound guided paracentesis, 05/26/2018. Clinical History: Ascites. Sedation: None. Child Protection Specialist: Vishnu Perez MD Sales Specialist: None. Estimated Blood Loss: < 1 cc. [...] marked, and the anterior abdominal wall was eval uated with color Doppler to exclude presence of blood vessels traversing the area, the skin was prepped and draped in the usual sterile manner. After local anesthesia was achieved with 1% lidocaine, a 5 Chadian one-step catheter was advanced into the peritoneal cavity under ultrasound guidance. After completion of drainage, the catheter was removed. There was no evidence of complication. Impression:Successful ultrasound guided paracentesis. Signed: Vishnu Perezeport Verified Date/Time: 05/26/2018 16:05:11 Reading Location: [facility] Radiology Reading Room [facility] [id number] 05:55:00 Test Item Value Reference Range Interpretation [...] 347) EGFR (BEAKER) (test 31 mL/min/1.73 ESTIMA JEAN CLAUDE GFR IS code = 1092) sq m NOT ACCURATE CREATININE CLEARANCE IN PREDICTING GLOMERULAR FILTRATION RATE . ESTIMATED GFR I S NOT APPLICABLE FOR DIALYSIS PATIEN TS. [id number] 05:51:00 Test Item Value Reference Range Interpretation Comments POTASSIUM (BEAKER) (test code = 3.7 meq/L 3.5-5.5 379) [id number] 05:51:00 Test Item Value Reference Range Interpretation Comments MAGNESIUM (BEAKER) (test code = 2.1 mg/dL 1.5-3.0 627) [id number] 05:31:00 Test Item Value Reference Range Interpretation Comments AMMONIA (BEAKER) (test code = 348) 134 mol/L 12-72 H URINE [id number] 12:48:00 Test Item Value Reference Range Interpretation Comments CULTURE (BEAKER) (test code = 1095) No growth BASIC METABOLIC [id number] 04:24:00 Test Item Value Reference Range Interpretation [...] 697) EGFR (BEAKER) (test 23 mL/min/1.73 ESTIMA JEAN CLAUDE GFR IS code = 1092) sq m NOT ACCURATE CREATININE CLEARANCE IN PREDICTING GLOMERULAR FILTRATION RATE . ESTIMATED GFR I S NOT APPLICABLE FOR DIALYSIS PATIEN TS. CBC W/PLT COUNT & AUTO [id number] 03:55:00 Test Item Value Reference Range Interpretation [...] (BEAKER) (test code = 2801) HEPATITIS PANEL, [id number] 20:47:00 Test Item Value Reference Range Interpretation Comments HEPATITIS A IGM ANTIBODY (BEAKER) Nonreactive Nonreactive (test code = 498) HEPATITIS B CORE IGM ANTIBODY Nonreactive Nonreactive (BEAKER) (test code = 645) HEPATITIS C ANTIBODY (BEAKER) Nonreactive Nonreactive (test code = 367) HEPATITIS B SURFACE ANTIGEN (2) Nonreactive Nonreactive (BEAKER) (test code = 2585) ALPHA FETOPROTEIN (AFP), TUMOR [id number] 19:52:00 Test Item Value Reference Range Interpretation Comments ALPHA-FETOPROTEIN (BEAKER) (test 5.5 ng/mL <10.0 code = 1094) CREATININE, RANDOM [id number] 14:08:00 Test Item Value Reference Range Interpretation Comments CREATININE URINE (BEAKER) (test 42.7 mg/dL code = 375) Reference Range: No NormalsSODIUM, RANDOM [id number] 14:08:00 Test Item Value Reference Range Interpretation Comments SODIUM URINE (BEAKER) (test code = 28 meq/L 243) Reference Range: No NormalsOCCULT BLOOD, [id number] 13:56:00 Test Item Value Reference Range Interpretation Comments FECAL OCCULT BLOOD (BEAKER) (test Positive Negative A code = 618) U/S, RENAL, [id number] 11:53:00Reason for exam:->akiFINAL REPORT RENAL ULTRASOUND HISTORY: [...] MDReport Verified Date/Time: 05/24/2018 11:53:08 Reading Location: [address] Reading Room BASIC METABOLIC [id number] 05:13:00 Test Item Value Reference Range Interpretation [...] 697) EGFR (BEAKER) (test 18 mL/min/1.73 ESTIMA JEAN CLAUDE GFR IS code = 1092) sq m NOT ACCURATE CREATININE CLEARANCE IN PREDICTING GLOMERULAR FILTRATION RATE . ESTIMATED GFR I S NOT APPLICABLE FOR DIALYSIS PATIEN TS. CBC W/PLT COUNT & AUTO [id number] 04:39:00 Test Item Value Reference Range Interpretation [...] (BEAKER) (test code = 2801) BASIC METABOLIC [id number] 19:11:00 Test Item Value Reference Range Interpretation [...] 697) EGFR (BEAKER) (test 18 mL/min/1.73 ESTIMA JEAN CLAUDE GFR IS code = 1092) sq m NOT ACCURATE CREATININE CLEARANCE IN PREDICTING GLOMERULAR FILTRATION RATE . ESTIMATED GFR I S NOT APPLICABLE FOR DIALYSIS PATIEN TS. CT, BRAIN, WITHOUT [id number] 17:56:00Reason for exam:->ALTERED MENTAL STATUSReason for exam:->BLOATEDReason [...] evaluation with MRI is recommended. Signed: [facility] Verified Date/Time: 05/23/2018 17:56:33 Reading Location: [facility] Radiology Reading Room COMPREHENSIVE METABOLIC [id number] 16:54:00 Test Item Value Reference Range Interpretation [...] hemolyzed EGFR (BEAKER) (test 17 mL/min/1.73 ESTIMA JEAN CLAUDE GFR IS code = 1092) sq m NOT ACCURATE CREATININE CLEARANCE IN PREDICTING GLOMERULAR FILTRATION RATE . ESTIMATED GFR I S NOT APPLICABLE FOR DIALYSIS PATIEN TS. [id number] 16:38:00 Test Item Value Reference Range Interpretation Comments LIPASE (BEAKER) (test code = 749) 82 U/L 8-78 H PROTHROMBIN [id number] 16:28:00 Test Item Value Reference Range Interpretation [...] mechanical heart valves.CBC W/PLT COUNT & AUTO [id number] 16:26:00 Test Item Value Reference Range Interpretation [...] = 2801) RAD, CHEST, 1 VIEW, NON [id number] 16:22:00Reason for exam:->altered mental statusShould this be performed at the bedside?->YesIs the patient ?->NoFINAL REPORT CHEST AP PORTABLE History provided: Altered mental status Heart size normal. Lungs clear and vascularity normal. IMPRESSION: Clear chest. Signed: Bruno Serrano MDReportVerified Date/Time: 05/23/2018 16:22:47 Reading Location: [facility] Radiology Reading Room URINALYSIS W/ [id number] 16:19:00 Test Item Value Reference Range Interpretation [...] code = 2795) LACTIC ACID, VENOUS, WHOLE [id number] 16:12:00 Test Item Value Reference Range Interpretation Comments LACTATE BLOOD VENOUS 2.0 mmol/L 0.5-2.2 Specime n moderately (2) (BEAKER) (test hemolyzed code = 2872) Effective 12/07/2015: Units/Reference Range ChangeNew: 0.5-2.2 mmol/L Previous: 5- 20 mg/[id number] 16:07:00 Test Item Value Reference Range Interpretation Comments AMMONIA (BEAKER) 90 mol/L 12-72 H Specimen mo derately (test code = 348) hemolyzed AFB CULTURE + [id number] 00:02:00 Test Item Value Reference Range Interpretation Comments CULTURE (BEAKER) (test No acid-fast bacilli code = 1095) isolated in 42 days AFB SMEAR (BEAKER) No acid fast bacilli (test code = 994) seen FUNGUS CULTURE + [id number] 12:57:00 Test Item Value Reference Range Interpretation Comments CULTURE (BEAKER) (test No fungus isolated in code = 1095) 28 days FUNGUS SMEAR (BEAKER) No fungi seen (test code = 1406) BODY FLUID CULTURE + GRAM [id number] 05:31:00 Test Item Value Reference Range Interpretation Comments CULTURE (BEAKER) (test code No growth = 1095) GRAM STAIN RESULT (BEAKER) <1+ WBCs (test code = 1123) GRAM STAIN RESULT (BEAKER) No organisms seen (test code = 38751) ANAEROBIC [id number] 02:42:00 Test Item Value Reference Range Interpretation Comments CULTURE (BEAKER) (test No anaerobes isolated code = 1095) POCT-GLUCOSE [id number] 13:58:00 Test Item Value Reference Range Interpretation Comments POC-GLUCOSE METER 119 mg/dL 70-110 H TESTED AT [facility] 6720 (BEAKER) (test code = [facility] 1538) [address] CBC W/PLT COUNT & AUTO [id number] 09:22:00 Test Item Value Reference Range Interpretation [...] WBC 0-0 (test code = 413) POCT-GLUCOSE [id number] 08:54:00 Test Item Value Reference Range Interpretation Comments POC-GLUCOSE METER 135 mg/dL 70-110 H TESTED AT [facility] 6720 (BEAKER) (test code = [facility] 1538) [address] [id number] 06:41:00 Test Item Value Reference Range Interpretation Comments PHOSPHORUS (BEAKER) (test code = 3.5 mg/dL 2.3-4.7 604) [id number] 06:41:00 Test Item Value Reference Range Interpretation Comments MAGNESIUM (BEAKER) (test code = 1.7 mg/dL 1.6-2.6 627) BASIC METABOLIC [id number] 06:41:00 Test Item Value Reference Range Interpretation [...] 697) EGFR (BEAKER) (test 88 mL/min/1.73 ESTIMA JEAN CLAUDE GFR IS code = 1092) sq m NOT ACCURATE CREATININE CLEARANCE IN PREDICTING GLOMERULAR FILTRATION RATE . ESTIMATED GFR I S NOT APPLICABLE FOR DIALYSIS PATIEN TS. HEPATIC FUNCTION [id number] 06:41:00 Test Item Value Reference Range Interpretation [...] = 56 U/L 6-55 H 347) BLOOD [id number] 06:00:00 Test Item Value Reference Range Interpretation Comments CULTURE (BEAKER) (test No growth in 5 days code = 1095) BLOOD [id number] 06:00:00 Test Item Value Reference Range Interpretation Comments CULTURE (BEAKER) (test No growth in 5 days code = 1095) POCT-GLUCOSE [id number] 21:33:00 Test Item Value Reference Range Interpretation Comments POC-GLUCOSE METER 126 mg/dL 70-110 H TESTED AT [facility] 6720 (BEAKER) (test code = [place] 1538) [address] BODY FLUID CELL COUNT WITH [id number] 20:39:00 Test Item Value Reference Range Interpretation Comments APPEARANCE FLUID (BEAKER) (test Bloody Clear A code = 510) COLOR FLUID (BEAKER) (test code Red Colorless, Straw A = 511) RBC FLUID (BEAKER) (test code = 58583 /cu mm <=1 H 513) ADJUSTED WBC [...] EDTA Tube (test code = 2873) TISSUE [id number] 18:33:00Surgical Pathology Report Case: [id number] Authorizing Provider: Tamera Mayorga MD Collected: 02/11/2018 1338 Ordering Location: [place] [address] ICU Received: 02/11/2018 1613 Pathologist: Herminia Hope MD Specimen: Hernia Sac, Umbilical SKIN AND HERNIA SAC, EXCISION:- SKIN WITH ULCER, NECROSIS, HERNIAWITH FIBROSIS, ADHESION AND CHRONIC INFLAMMATION Signing Pathologist Direct Phone Line: [phone] signed by Herminia Hope MD on 02/14/2018 at 6:33 [id number] umbilical hernia Hernia sac umbilical The specimen is received in a formalin-filled container labeled with the patient's information and labeled "umbilical hernial sac" and consists of hemorrhagic membranous tissue measuring 6 x 3 x 0.2 cm with overlying brown skin measuring 5.5 x 3 x 0.3 cm, submitted in A1 and A2. Thereare no areas of suspicion. CG/ew PerformedPOCT-GLUCOSE [id number] 18:27:00 Test Item Value Reference Range Interpretation Comments POC-GLUCOSE METER 152 mg/dL 70-110 H TESTED AT [facility] 6720 (BEAKER) (test code = [place] 1538) [address] U/S, [id number] 17:34:00Send fluid for cell ct \\T\\ diff, [...] was removed. Signed: Bela Rios MDReport Verified Date/Time:02/14/2018 17:34:56 Reading Location: [address] Ultrasound Reading Room [id number] 15:56:00 Test Item Value Reference Range Interpretation Comments PARTIAL THROMBOPLASTIN TIME 28.9 seconds 22.5-36.0 (BEAKER) (test code = 760) PROTHROMBIN [id number] 15:55:00 Test Item Value Reference Range Interpretation [...] mechanical heart valves.CBC W/PLT COUNT & AUTO [id number] 15:49:00 Test Item Value Reference Range Interpretation [...] PERCENT (BEAKER) (test code = 2801) POCT-GLUCOSE [id number] 13:10:00 Test Item Value Reference Range Interpretation Comments POC-GLUCOSE METER 138 mg/dL 70-110 H TESTED AT [facility] 6720 (BEAKER) (test code = [place] 1538) [address] SURGICALLY OBTAINED CULTURE + GRAM [id number] 11:29:00 Test Item Value Reference Range Interpretation Comments CULTURE (BEAKER) (test code No growth = 1095) GRAM STAIN RESULT (BEAKER) <1+ WBCs (test code = 1123) GRAM STAIN RESULT (BEAKER) No organisms seen (test code = 11417) CBC W/PLT COUNT & AUTO [id number] 09:31:00 Test Item Value Reference Range Interpretation [...] PERCENT (BEAKER) (test code = 2801) POCT-GLUCOSE [id number] 08:00:00 Test Item Value Reference Range Interpretation Comments POC-GLUCOSE METER 100 mg/dL 70-110 TESTED AT [facility] 6720 (BEAKER) (test code = [facility] 1538) [address] [id number] 07:25:00 Test Item Value Reference Range Interpretation Comments PHOSPHORUS (BEAKER) (test code = 3.0 mg/dL 2.3-4.7 604) [id number] 07:25:00 Test Item Value Reference Range Interpretation Comments MAGNESIUM (BEAKER) (test code = 2.0 mg/dL 1.6-2.6 627) HEPATIC FUNCTION [id number] 07:25:00 Test Item Value Reference Range Interpretation [...] = 58 U/L 6-55 H 347) POCT-GLUCOSE [id number] 23:06:00 Test Item Value Reference Range Interpretation Comments POC-GLUCOSE METER 106 mg/dL 70-110 TESTED AT [place] [address] ([facility]) (test [facility] = [facility] 1538) [address] POCT-GLUCOSE [id number] 17:34:00 Test Item Value Reference Range Interpretation Comments POC-GLUCOSE METER 149 mg/dL 70-110 H TESTED AT [place] [address] ([facility]) (test code = [facility] 1538) [address] POCT-GLUCOSE [id number] 11:39:00 Test Item Value Reference Range Interpretation Comments POC-GLUCOSE METER 117 mg/dL 70-110 H TESTED AT [place] [address] ([facility]) (test code = [facility] 1538) [id number] POCT-GLUCOSE [id number] 08:13:00 Test Item Value Reference Range Interpretation Comments POC-GLUCOSE METER 126 mg/dL 70-110 H TESTED AT [place] [address] ([facility]) (test code = [facility] 1538) [address] [id number] 06:41:00 Test Item Value Reference Range Interpretation Comments PHOSPHORUS (BEAKER) (test code = 2.1 mg/dL 2.3-4.7 L 604) [id number] 06:41:00 Test Item Value Reference Range Interpretation Comments MAGNESIUM (BEAKER) (test code = 2.1 mg/dL 1.6-2.6 627) HEPATIC FUNCTION [id number] 06:41:00 Test Item Value Reference Range Interpretation [...] = 17 U/L 6-55 347) COMPREHENSIVE METABOLIC [id number] 06:41:00 Test Item Value Reference Range Interpretation [...] 347) EGFR (BEAKER) (test 73 mL/min/1.73 ESTIMA JEAN CLAUDE GFR IS code = 1092) sq m NOT ACCURATE CREATININE CLEARANCE IN PREDICTING GLOMERULAR FILTRATION RATE . ESTIMATED GFR I S NOT APPLICABLE FOR DIALYSIS PATIEN TS. CBC W/PLT COUNT & AUTO [id number] 06:25:00 Test Item Value Reference Range Interpretation [...] 0-1 PERCENT (BEAKER) (test code = 2801) SPIN/CONCENTRATION [id number] 15:23:00 Test Item Value Reference Range Interpretation Comments CONCENTRATION CHARGED (BEAKER) (test Done code = 2657) POCT-GLUCOSE [id number] 08:15:00 Test Item Value Reference Range Interpretation Comments POC-GLUCOSE METER 147 mg/dL 70-110 H TESTED AT [facility] 6720 (BEAKER) (test code = [place] 1538) [address] HIV-1 ANTIGEN WITH HIV-1/2 [id number] 06:57:00 Test Item Value Reference Range Interpretation Comments HIV-1 ANTIGEN WITH HIV 1\\T\\2 Nonreactive Nonreactive ANTIBODY (2) (BEAKER) (test code = 2586) [id number] 06:35:00 Test Item Value Reference Range Interpretation Comments PHOSPHORUS (BEAKER) (test code = 2.8 mg/dL 2.3-4.7 604) [id number] 06:35:00 Test Item Value Reference Range Interpretation Comments MAGNESIUM (BEAKER) (test code = 1.9 mg/dL 1.6-2.6 627) BASIC METABOLIC [id number] 06:35:00 Test Item Value Reference Range Interpretation [...] 697) EGFR (BEAKER) (test 70 mL/min/1.73 ESTIMA JEAN CLAUDE GFR IS code = 1092) sq m NOT ACCURATE CREATININE CLEARANCE IN PREDICTING GLOMERULAR FILTRATION RATE . ESTIMATED GFR I S NOT APPLICABLE FOR DIALYSIS PATIEN TS. HEPATIC FUNCTION [id number] 06:35:00 Test Item Value Reference Range Interpretation [...] 6-55 347) CBC W/PLT COUNT & AUTO [id number] 06:26:00 Test Item Value Reference Range Interpretation [...] 0-1 PERCENT (BEAKER) (test code = 2802) POCT-GLUCOSE [id number] 00:47:00 Test Item Value Reference Range Interpretation Comments POC-GLUCOSE METER 220 mg/dL 70-110 H TESTED AT [facility] 6720 (BEAKER) (test code = [facility] 1538) [address] [id number] 19:57:00 Test Item Value Reference Range Interpretation Comments PHOSPHORUS (BEAKER) (test code = 2.9 mg/dL 2.3-4.7 604) [id number] 19:57:00 Test Item Value Reference Range Interpretation Comments MAGNESIUM (BEAKER) (test code = 1.7 mg/dL 1.6-2.6 627) [id number] 16:27:00 Test Item Value Reference Range Interpretation [...] for patients with mechanical heart valves.BASIC METABOLIC [id number] 16:24:00 Test Item Value Reference Range Interpretation [...] 697) EGFR (BEAKER) (test 57 mL/min/1.73 ESTIMA JEAN CLAUDE GFR IS code = 1092) sq m NOT ACCURATE CREATININE CLEARANCE IN PREDICTING GLOMERULAR FILTRATION RATE . ESTIMATED GFR I S NOT APPLICABLE FOR DIALYSIS PATIEN TS. CBC W/PLT COUNT & AUTO [id number] 16:00:00 Test Item Value Reference Range Interpretation [...] code = 2801) HGB/HCT (H&H) - STAT [id number] 13:33:00 Test Item Value Reference Range Interpretation Comments HEMOGLOBIN (BEAKER) (test code = 8.7 g/dL 12.0-15.0 L 410) HEMATOCRIT (BEAKER) (test code = 26.0 % 36.0-45.0 L 411) THIS IS A VENOUS SAMPLECALCIUM, [id number] 13:33:00 Test Item Value Reference Range Interpretation Comments CALCIUM IONIZED (BEAKER) (test 1.07 mmol/L 1.12-1.27 L code = 698) PH, BLOOD (BEAKER) (test code = 7.28 1810) GLUCOSE-STAT [id number] 13:33:00 Test Item Value Reference Range Interpretation Comments GLUCOSE RANDOM (BEAKER) (test code 122 mg/dL 70-110 H = 652) THIS IS A VENOUS SAMPLETHIS IS A VENOUS SAMPLETHIS IS A VENOUS SAMPLESODIUM NA- STAT [id number] 13:32:00 Test Item Value Reference Range Interpretation Comments SODIUM (BEAKER) (test code = 381) 135 meq/L 135-148 THIS IS A VENOUS SAMPLETHIS IS A VENOUS SAMPLETHIS IS A VENOUS SAMPLEPOTASSIUM- STAT [id number] 13:32:00 Test Item Value Reference Range Interpretation Comments POTASSIUM (BEAKER) (test code = 3.9 meq/L 3.6-5.5 379) THIS IS A VENOUS SAMPLETHIS IS A VENOUS SAMPLETHIS IS A VENOUS SAMPLEU/S, ABDOMINAL, [id number] 09:32:00Reason for exam:->ascites, acute renal failure, hydronephrosisShould [...] MDReport Verified Date/Time: 02/11/2018 09:32:36 Reading Location: [facility] P006J Ultrasound Reading Room POCT-GLUCOSE [id number] 08:05:00 Test Item Value Reference Range Interpretation Comments POC-GLUCOSE METER 117 mg/dL 70-110 H TESTED AT [facility] 6720 (BEAKER) (test code = [facility] 1538) [address] COMPREHENSIVE METABOLIC [id number] 07:53:00 Test Item Value Reference Range Interpretation Comments TOTAL PROTEIN 6.1 gm/dL 6.0-8.3 (BEAKER) (test code = 770) ALBUMIN (BEAKER) 3.2 g/dL 3.5-5.0 L (test code = 1145) ALKALINE PHOSPHATASE 58 U/L 40-150 (BEAKER) (test code = 346) BILIRUBIN TOTAL 1.6 mg/dL 0.2-1.2 H (BEAKER) (test code = [...] 347) EGFR (BEAKER) (test 44 mL/min/1.73 ESTIMA JEAN CLAUDE GFR IS code = 1092) sq m NOT ACCURATE CREATININE CLEARANCE IN PREDICTING GLOMERULAR FILTRATION RATE . ESTIMATED GFR I S NOT APPLICABLE FOR DIALYSIS PATIEN TS. CT, [id number] 07:50:00FINAL REPORT HISTORY : Hernia, complicated Technique: [...] colopathy or underdistention. 5. Cholelithiasis. Signed: Tyrell Mercer Verified Date/Time: 02/11/2018 07:50:19 Reading Location: [facility] Diagnostic Imaging Reading Room - [place] [address] [id number] 07:06:00 Test Item Value Reference Range Interpretation [...] mechanical heart valves.CBC W/PLT COUNT & AUTO [id number] 06:22:00 Test Item Value Reference Range Interpretation [...] PERCENT (BEAKER) (test code = 2801) POCT-GLUCOSE [id number] 00:49:00 Test Item Value Reference Range Interpretation Comments POC-GLUCOSE METER 95 mg/dL 70-110 TESTED AT [place] [address] (BEAKER) (test code = [facility] [address] 1538) [id number] 21:49:00 Test Item Value Reference Range Interpretation Comments POTASSIUM (BEAKER) 3.9 meq/L 3.5-5.1 Specimen moderately (test code = 379) hemolyzed SODIUM, RANDOM [id number] 19:06:00 Test Item Value Reference Range Interpretation Comments SODIUM URINE (BEAKER) (test code = < meq/L 243) Reference Range: No NormalsCREATININE, RANDOM [id number] 19:02:00 Test Item Value Reference Range Interpretation Comments CREATININE URINE (BEAKER) (test 160.3 mg/dL code = 375) Reference Range: No NormalsPROTEIN, RANDOM [id number] 19:02:00 Test Item Value Reference Range Interpretation Comments PROTEIN, URINE (BEAKER) (test code = 19 mg/dL 0-14 H 1569) SCREEN, [id number] 18:47:00 Test Item Value Reference Range Interpretation Comments TEST URINE (BEAKER) (test Negative code = 583) POCT-GLUCOSE [id number] 18:08:00 Test Item Value Reference Range Interpretation Comments POC-GLUCOSE METER 183 mg/dL 70-110 H TESTED AT [place] [address] (BEAKER) (test code = [place] 1538) [address] [id number] 13:33:00 Test Item Value Reference Range Interpretation [...] CELLS (BEAKER) (test code = 413) POCT-GLUCOSE [id number] 11:51:00 Test Item Value Reference Range Interpretation Comments POC-GLUCOSE METER 123 mg/dL 70-110 H TESTED AT [place] [address] (BEAKER) (test code = [place] 1538) [address] POCT-GLUCOSE [id number] 06:46:00 Test Item Value Reference Range Interpretation Comments POC-GLUCOSE METER 237 mg/dL 70-110 H TESTED AT [facility] 6720 (BEAKER) (test code = [facility] 1538) [address] CBC (HEMOGRAM ONLY)2018-02-10 06:44:00 Test Item Value [...] (test code = 413) RAPID DRUG SCREEN, [id number] 06:12:00 Test Item Value Reference Range Interpretation [...] situations. Chain of custody not maintained. Some olwn-wjx-oeywiyr medications, as well as adulterants, may cause inaccurate results. Clinical correlation should be applied. A more comprehensive drug screen or confirmation of a detected drug may be performed upon request. URINALYSIS W/ REFLEX URINE [id number] 04:33:00 Test Item Value Reference Range Interpretation [...] code = 1584) SOURCE(BEAKER) (test code = 5400) BASIC METABOLIC [id number] 02:35:00 Test Item Value Reference Range Interpretation [...] 697) EGFR (BEAKER) (test 27 mL/min/1.73 ESTIMA JEAN CLAUDE GFR IS code = 1092) sq m NOT ACCURATE CREATININE CLEARANCE IN PREDICTING GLOMERULAR FILTRATION RATE . ESTIMATED GFR I S NOT APPLICABLE FOR DIALYSIS PATIEN TS. [id number] 02:35:00 Test Item Value Reference Range Interpretation Comments MAGNESIUM (BEAKER) (test code = 2.0 mg/dL 1.6-2.6 627) HEPATIC FUNCTION [id number] 02:35:00 Test Item Value Reference Range Interpretation [...] = 14 U/L 6-55 347) BLOOD GAS, [id number] 02:34:00 Test Item Value Reference Range Interpretation [...] (BEAKER) 37.0 C (test code = 1818) [id number] 02:33:00 Test Item Value Reference Range Interpretation Comments PHOSPHORUS (BEAKER) (test code = 3.7 mg/dL 2.3-4.7 604) [id number] 02:33:00 Test Item Value Reference Range Interpretation Comments LIPASE (BEAKER) (test code = 749) 40 U/L 8-78 CREATINE KINASE (CK), TOTAL AND [id number] 02:30:00 Test Item Value Reference Range Interpretation Comments CREATINE KINASE TOTAL (BEAKER) 30 U/L 29-200 (test code = 380) CREATINE KINASE-MB (BEAKER) (test 0.4 ng/mL 0.0-6.6 code = 750) CREATINE KINASE-MB INDEX (BEAKER) 1.3 % (test code = 395) CK-MB Reference Range:<6.7 Normal6.7-10.0 Borderline>10.0 AbnormalTROPONIN [id number] 02:30:00 Test Item Value Reference Range Interpretation [...] failure, acidosis, acute neurological disease, and persistent tachyarrhythmia.[id number] 02:19:00 Test Item Value Reference Range Interpretation Comments ETHANOL (BEAKER) (test code = 400) < mg/dL <=10 [id number] 02:17:00 Test Item Value Reference Range Interpretation Comments PARTIAL THROMBOPLASTIN TIME 32.8 seconds 22.5-36.0 (BEAKER) (test code = 760) LACTIC ACID, VENOUS, WHOLE [id number] 02:17:00 Test Item Value Reference Range Interpretation Comments LACTATE BLOOD VENOUS (2) (BEAKER) 1.2 mmol/L 0.5-2.2 (test code = 2872) Effective 12/07/2015: Units/Reference Range ChangeNew: 0.5-2.2 mmol/L Previous: 5- 20 mg/dLPROTHROMBIN TIME/[id number] 02:16:00 Test Item Value Reference Range Interpretation Comments PROTIME (BEAKER) (test code = 17.0 seconds 11.7-14.7 H 759) INR (BEAKER) (test code = 370) 1.4 <=5.9 RECOMMENDED COUMADIN/WARFARIN INR THERAPY RANGESSTANDARD DOSE: 2.0 - 3.0 Includes: PROPHYLAXIS for venous thrombosis, systemic embolization; TREATMENT for venous thrombosis and/or pulmonary embolus.HIGH RISK: Target INR is 2.5-3.5 for patients with mechanical heart valves.[id number] 02:16:00 Test Item Value Reference Range Interpretation Comments AMMONIA (BEAKER) (test code = 348) 75 mol/L 18-72 H [id number] 02:16:00 Test Item Value Reference Range Interpretation Comments FIBRINOGEN LEVEL (BEAKER) (test 372 mg/dl 225-434 code = 658) CBC W/PLT COUNT & AUTO [id number] 02:10:00 Test Item Value Reference Range Interpretation [...] (test code = 418) LÓPEZ TITER AND [id number] 09:50:00 Test Item Value Reference Range Interpretation Comments LÓPEZ TITER (BEAKER) (test code = :40 1541) LÓPEZ PATTERN (BEAKER) (test code = Speckled 1781) [id number] 15:34:00 Test Item Value Reference Range Interpretation Comments FERRITIN (BEAKER) (test code = 361) 237 ng/mL 5-275 HEPATITIS B SURFACE [id number] 14:54:00 Test Item Value Reference Range Interpretation Comments HEPATITIS B SURFACE ANTIBODY < mIU/mL <8.0 (BEAKER) (test code = 647) HEPATITIS B SURFACE [id number] 14:49:00 Test Item Value Reference Range Interpretation Comments HEPATITIS B SURFACE ANTIGEN (2) Nonreactive Nonreactive (BEAKER) (test code = 2585) HEPATITIS C [id number] 14:49:00 Test Item Value Reference Range Interpretation Comments HEPATITIS C ANTIBODY (BEAKER) Nonreactive Nonreactive (test code = 367) ALPHA FETOPROTEIN (AFP), TUMOR [id number] 14:48:00 Test Item Value Reference Range Interpretation Comments ALPHA-FETOPROTEIN (BEAKER) (test 4.9 ng/mL <10.0 code = 1094) HEPATITIS B CORE ANTIBODY, [id number] 14:48:00 Test Item Value Reference Range Interpretation Comments HEPATITIS B CORE TOTAL ANTIBODY Nonreactive Nonreactive (BEAKER) (test code = 497) HEPATITIS A ANTIBODY, [id number] 14:48:00 Test Item Value Reference Range Interpretation Comments HEPATITIS A IGG ANTIBODY (BEAKER) Nonreactive Nonreactive (test code = 2797) CBC W/PLT COUNT & AUTO [id number] 14:30:00 Test Item Value Reference Range Interpretation [...] (BEAKER) (test code = 2801) COMPREHENSIVE METABOLIC [id number] 14:28:00 Test Item Value Reference Range Interpretation [...] 347) EGFR (BEAKER) (test 30 mL/min/1.73 ESTIMA JEAN CLAUDE GFR IS code = 1092) sq m NOT ACCURATE CREATININE CLEARANCE IN PREDICTING GLOMERULAR FILTRATION RATE . ESTIMATED GFR I S NOT APPLICABLE FOR DIALYSIS PATIEN TS. BILIRUBIN, [id number] 14:28:00 Test Item Value Reference Range Interpretation [...] % 20-55 L (test code = 2590) [id number] 14:25:00 Test Item Value Reference Range Interpretation Comments ALPHA-1 ANTITRYPSIN (BEAKER) 151.80 mg/dL 90.00-200.00 (test code = 502) PROTHROMBIN TIME/[id number] 14:03:00 Test Item Value Reference Range Interpretation Comments PROTIME (BEAKER) (test code = 17.2 seconds 11.7-14.7 H 759) INR (BEAKER) (test code = 370) 1.4 <=5.9 RECOMMENDED COUMADIN/WARFARIN INR THERAPY RANGESSTANDARD DOSE: 2.0 - 3.0 Includes: PROPHYLAXIS for venous thrombosis, systemic embolization; TREATMENT for venous thrombosis and/or pulmonary embolus.HIGH RISK: Target INR is 2.5-3.5 for patients with mechanical heart valves. Consult Notes Date/Time Note Provider Source 2023-03-21 [id number]:00:00[facility] 16:00:00 Order(s): CONSULT VASCULAR ACCESS Vascular Access ServicesVAS was consulted for midline insertion. Consult has been acknowledged, and the patient's medical chart has been reviewed. Please see procedural note. [id number] [id number]:35:25Consul t noteTXT1.2.840.438370.1.13.104. 2.7.2.728487|[id number] ble for patient wylg74759-6Xsgenmy [address]EBTQPPJKJLZFMERWLRRRXD6189 -08-17T17:35:251.2.840.486223.1 .72.3.15|1.2.840.192793.1.13.10 4.2.7.2.727879_[id number] 2023-03-20 0605-92-62Z93:52:49[facility] 15:52:49 Order(s): CONSULT WOUND, OSTOMY, OR CONTINENCE CARE TEAM [facility] Nurse NoteConsult for abdominal wound. Pt has history of ventral hernia repair x 5 yrs ago with exposed mesh. Pt reports wound never closed. ASSESSMENT: Midline abdominal wound with small opening and scar tissue surrounding. Clear drainage. Exposed mesh. RECOMMENDATIONS: Cleanse skin with saline to remove dried crusts and drainage. Apply skin barrier film MM#[id number] to intact skin to protect from drainage. Apply dry absorbent gauze dressing daily. Surgery on consult for further interventions. Bela CERON RN [phone] signed by Bela William RN at 03/20/2023 3:57 PM [id number] xidsRX5972-68-19I74:57:48Consul t noteTXT1.2.840.195663.1.13.104. 2.7.2.587702|[id number] ble for patient wzza80689-2Gxmrsuo nwwoTBJQB-UZVTTCBESQ-HSEWLCDKGF[address] DkviHisxcoizqWwuxvqcoeLRYG[address]FJHFMXKWZMTGDGIMOUHKEQ7466 -08-16T15:57:481.2.840.008839.1 .72.3.15|1.2.840.278254.1.13.10 4.2.7.2.727879_[id number] 2023-03-20 0039-43-12S30:36:46[facility]ated [facility] 12:36:46 Order(s): CONSULT GENERAL RECONSTRUCTIVE SURGERY SURGERY Images from the original note were not included.Consult: FloorRequesting Service: IM Requesting Physician: Date of Service: 17:43HISTORYWe were asked to see this patient to give my opinion regarding Amauri December 52 year old female with PMH of CHF, cirrhosis, and NSTEMI who presents with RLQ pain. Patient describes a new RLQ pain that she describes a constant pain that doesn't radiate or get worse/better. Complained of chills and headache. No nausea/vomiting/fevers. She has PMH described as above. No allergies. No other surgeries than ones mentioned below. She smokes 1 pack per 3 weeks. Hx of marijuana use. Per chart review, patient had a history of an umbilical hernia repair w/ mesh that became infected. She was taken back to OR for incisional hernia repair. She said that her wound has not been able to heal since that procedure. MEDICATIONSCurrent Facility-Administered Medications Medication Dose Route Frequency Last Rate Last Admin acetaminophen (TYLENOL) tablet 650 mg 650 mg Oral Q6HPRN 650 mg at 03/19/23 1143 bumetanide (BUMEX) 10 mg in D5W 50 mL IV infusion 2 mg/hr IV Infusion CONTINUOUS 10 mL/hr at 03/20/23 1025 2 mg/hr at 03/20/23 1025 chlorothiazide (DIURIL) 500 mg in NaCl 0.9% (NS) 50 mL 500 mg IV Piggyback DAILY Stopped at 03/20/23 1036 heparin (porcine) injection 5,000 Units 5,000 Units Subcutaneous Q8H 5,000 Units at 03/19/23 2158 metoprolol succinate XL (TOPROL XL) tablet 12.5 mg 12.5 mg Oral DAILY 12.5 mg at 03/20/23 0811 midodrine (PROAMATINE) tablet 5 mg 5 mg Oral TID 5 mg at 03/20/23 0811 ALLERGIESNo Known Allergies HISTORIESNo past surgical history on file. No past medical history on file.No problems updated. No family history on file. Social History Socioeconomic History Marital status: Spouse name: Not on file Number of children: Not on file Years of education: Not on file Highest education level: Not on file Occupational History Not on file Tobacco Use Smoking status: Former Types: Cigarettes Passive exposure: Past Smokeless tobacco: Former Substance and Sexual Activity Alcohol use: Not on file Drug use: Not on file Sexual activity: Not on file Other Topics Concern Not on file Social History Narrative Not on file Social Determinants of Health Financial Resource Strain: Not on file Food Insecurity: Not on file Transportation Needs: Not on file Physical Activity: Not on file Stress: Not on file Social Connections: Not on file Intimate Partner Violence: Not on file Housing Stability: Not on file REVIEW OF SYSTEMSConstitutional: no fevers, has chills, headaches Cardiovascular: no chest painRespiratory: no shortness of breathGastrointestinal: no abdominal pain, nausea, vomiting, diarrheaMusculoskeletal: no back painIntegumentary: no rashes, umbilical lesion as described below in PENeurological: no stroke/TIA symptomsPHYSICAL EXAMTemp: [35.1 ?C (95.2 ?F)-37.4 ?C (99.3 ?F)] Heart Rate (monitor): [84] Pulse: [74-105] Resp: [18-20] BP: (91-110)/(60-82) MAP (mmHg): [71-92] Constitutional: awake, alert, no acute distressRespiratory: No use of accessory musculatureCardio: RRRAbdomen: soft, non-distended, fluid wave, mildly tender to palpation RLQ, without rigidity or rebound tenderness. Open wound in midline wound with exposed mesh from previous hernia repair without erythema or induration. (Removed suture from R lateral site) Chronic changes such as fibrosis seen around site. No signs of infection. Image below Extremities: no gross deformitiesSkin: warm and dryNeurologic: no localizing symptomsPsych:oriented to place and time, demonstrated good judgement and reasoning during the examination.LABORATORYINR 1.5WBC 6.85Tbili 5.3Cr 1.29 < 1.25 < 1.28RADIOLOGYCT THORAX WO CONTRASTResult Date: 03/19/2023Moderate right and trace left pleural effusions with associated relaxation atelectasis. Moderate cardiomegaly. Small pericardial effusion. Hepatic cirrhosis and postsurgical changes of TIPS with small volume of abdominal ascites. Cholelithiasis. I, Lurdes Rader MD., have reviewed this study and agree with the above report.Pending CTAP INJURIES/PROBLEMS/DIAGNOSES and TREATMENT PLAN:Diagnosis- Amauri Henson is a 52 year old female with PMH of cirrhosis, CHF, NSTEMI who presents with RLQ abdominal pain with an examination not reflective of acute abdomen. Given clinical examination, and imaging reflective of ascites we consider spontaneous bacterial peritonitis as a possible diagnosis. Child-Wayne 9. No acute care surgical intervention necessary indicated at this time. - no acute care surgical intervention- medical optimization of comorbid conditions- daily wound care for open abdominal wound- removal of mesh in the future recommended when patient is medically optimized Harley Meléndez, MS4The patient was discussed and seen with Dr. Lindsey. I personally examined the patient on 03/20/23 and have verified the medical student documentation and/or findings, including the history, physical exam, and medical decision making. Hernan William M.D.Plastic Surgery PGY-/ 5:49 PM ssociated attestation - John Lindsey - 03/20/2023 8:14 PM CDT I personally examined the patient on 03/20/2023 and agree with the Resident note as written. I actively participated in the decision-making process. Please see the note for additional details. 52 year old women with PMH of Cirrhosis and CHF with NSTEMI who presents with abdominal pain -No lactic acidosis -positive blood cultures -Exposed mesh in a chronic abdominal wound; CT does not demonstrate any collection; Continue wound care -No surgical intervention -Abdominal pain likely related to SBP [facility]St[facility] Hospitalra[facility] Surgery Faculty03/20/2023 8:11 PM 30179-4Mfqbsky [id number], Michael1.2.840.964568.1.13.104. 2.7.2.544365CqbigcwbChtjwpg8795 -08-16T20:14:34Consult noteTXT1.2.840.243670.1.13.104. 2.7.2.590565|[id number] ble for patient pbwj03573-5Cgxohfe noteLNSUR-PLASTIC AND RECONSTRUCTIVE SURGERYSUR-PLASTIC AND RECONSTRUCTIVE SURGERY[address] AeymXkhdojsltDkvhkbnycCRFT[address] 25594ZAZKXIXUVHKMPDJHVWLULB8796 -08-16T20:14:341.2.840.160428.1 .72.3.15|1.2.840.538213.1.13.10 4.2.7.2.727879_[id number] 2023-03-20 1663-18-21G25:35:42[facility] 10:35:42 Order(s): CONSULT INFECTIOUS DISEASE INFECTIOUS DISEASES CONSULT NOTEDate of Service: 03/20/2023 Consultation requested by: Maday Hernandez MDReason for Consultation: E faecalis bacteremiaChief Complaint: No chief complaint on file.History of Present Illness:Amauri Henson is a 52 year old female with past medical history of CHF, alcohol associated cirrhosis, NSTEMI is presenting to the hospital with complaints of shortness of breath, bilateral leg edema, and facial swellingO2 on arrival room air satting at 93%, otherwise hemodynamically stable, Tmax of 100.8. Labs show no leukocytosis, platelet of 89 with lymphopenia seen on differential. 03/19 blood cultures / positive for Enterococcus faecalis via DNA probe. Chest x-ray obtained on admission showed enlarged heart with otherwise clear lungs and right-sided pleural effusion seen on CT thorax without contrast.According to the patient, 2 days prior to admission she was started to have increasing edema in her legs, abdomen, and face to the point where her eyes had started to shut. She had some difficulty breathing with the swallowing, denies any cough, fever, chills.She has been having right-sided abdominal discomfort that has been present for a few weeks.History: Daughter 2 years back, started to consume alcohol more frequently. Now binge drinks once every 3 weeks. Smokes 1 to 2 packs/week. Intermittent use of marijuana, otherwise denies drug use however UDS was positive.On examination of her abdomen, noted bleeding and purulent drainage from chronic wound that has reportedly been there for the past 4 to 5 years. States that this wound has been present since her hernia surgery and has been draining since then. She attempts to clean it at home, intermittently foul odor and discharge is presentReview of Systems: General: Negative for fever, chills, weight change, dizziness, fatigue, change in appetiteSkin: Chronic suprapubic wound presentResp: Shortness of breathCardio: Intermittent palpitations, dyspnea on exertionGI: Positive abdominal pain, negative nausea/vomiting/diarrheaGU: Negative for dysuria, hematuria, increased frequency, difficutly urinatingPast medical history: she has no past medical history on file. - she does not report other medical history pertinent to CC/HPI.Patient Active Problem List Diagnosis Heart failure Obesity (BMI 30-39.9) Cirrhosis of liver Past surgical history: she has no past surgical history on file. - she does not report other surgical history pertinent to CC/HPI.Social history: she reports that she has quit smoking. Her smoking use included cigarettes. She has been exposed to tobacco smoke. She has quit using smokeless tobacco. - she does not report that home / work environment, living conditions, substance use, or travel are pertinent to CC/HPI.Family history: her family history is not on file. Otherwise, she does not report heritable immunodeficiencies, cancers, or diseases pertinent to CC/HPI.No Known Allergies Current medications: she has a current medication list which includes the following Facility-Administered Medications: magnesium sulfate in water, acetaminophen, bumetanide (BUMEX) 10 mg in D5W 50 mL IV infusion, chlorothiazide (DIURIL) 500 mg in NaCl 0.9% (NS) 50 mL, heparin (porcine), metoprolol succinate xl, and midodrine.Physical ExamBP 96/68 (BP Location: Left arm, Patient Position: Supine) | Pulse 97 | Temp 37.2 ?C (99 ?F) (Skin) | Resp 20 | Ht 1.676 m (5' 6") | Wt 83.6 kg (184 lb 3.2 oz) | SpO2 98% | BMI 29.73 kg/m? General: Pleasant and cooperative in no apparent distressNeuro: alert and oriented x 4, no gross focal deficitsCV: RRR, S1 and S2 normal; no murmurs, rubs or gallops; pedal edema; peripheral pulses Respiratory: Breathing ; normal respiratory effort, clear to auscultation bilaterally without wheezes or ralesGI: Abdomen is distended, tender in the right upper quadrant area and over her periumbilical woundMusculoskeletal: Bilateral lower extremity edemaSkin: warm and dry. Well-perfused.Peripheral IV 03/19/23 0600 Distal;Inferior;Left Wrist (Active) Site assessment Clean;Dry;Intact 03/20/23 08 Line status Saline Lock;Flushed 03/20/23 08 Line interventions None required 03/20/23 08 Dressing status Clean;Dry;Intact 03/20/23 08 Dressing intervention None required 03/20/23 08 Number of days: 1 Peripheral IV 03/19/23 0600 Distal;Inferior;Right Arm (Active) Site assessment Clean;Dry;Intact 03/20/23 08 Line status Infusing 03/20/23 08 Line interventions None required 03/20/23799 Dressing status Clean;Dry;Intact 03/20/23 08 Dressing intervention None required 03/20/23799 Number of days: 1 Pertinent laboratory findings: Recent Labs WBC 6.85 GRAN MAT (NEUT) % (%) Date Value 03/20/2023 76.0 GRAN MAT x10^3(ANC) (10*3/uL) Date Value 03/20/2023 5.21 LYMPH x10^3 (10*3/uL) Date Value 03/20/2023 0.62 (L) HGB (g/dL) Date Value 03/20/2023 11.4 (L) Recent Labs MCV 95.0 Recent Labs PLT 78* CREATININE (mg/dL) Date Value 03/20/2023 1.29 (H) Estimated Creatinine Clearance: 54.9 mL/min (A) (by C-G formula based on SCr of 1.29 mg/dL (H)).Recent Labs NA 135 K (mmol/L) Date Value 03/20/2023 3.7 No results found for: "HGBA1C"No results found for: "ESRWEST"No results found for: "CRP"Microbiology / Pathology: Lab Results Component Value Date CUR >100,000 CFU/mL Escherichia coli 03/19/2023 Radiology/Imaging: Reviewed in [facility]. Pertinent findings:CT THORAX WO CONTRASTResult Date: 03/19/2023Moderate right and trace left pleural effusions with associated relaxation atelectasis. Moderate cardiomegaly. Small pericardial effusion. Hepatic cirrhosis and postsurgical changes of TIPS with small volume of abdominal ascites. Cholelithiasis. I, Lurdes Rader MD., have reviewed this study and agree with the above report. Impression:Amauri Henson is a 52 year old female with Enterococcal faecalis bacteremia secondary to infected hernia meshAccording to the patient, had hernia repair surgery done around 4 to 5 years ago with a revision done 1 year later. Wound has been open and draining blood, and most recently foul-smelling purulent drainageHas been having significant right upper quadrant abdominal pain along with pain over her abdominal wound- Alcohol induced cirrhosisNonadherent to medications, states that it causes nauseaBinge drinks alcohol once every 2 weeksAsymptomatic bacteriuriaE. coli positive in the urine, patient has no symptoms of urinary dysfunctionRecommendations:Disc ontinue vancomycin and start patient on ampicillin 2 g every 6 hoursFollow-up on repeat blood culturesWould obtain abdominal CT scan with contrast to assess for underlying infectionPatient will need to have her underlying mesh addressed given her current bacteremia. Patient is at risk for reinfection with retained meshPlease call or page with questions or concerns Odilia ShiloInfectious Diseases ssociated attestation - Diamond Olivera MD - 03/21/2023 7:46 AM CDT Attending attestationDate of Service: 03/20/23I personally examined the patient on the date of service. I actively participated in the decision-making process. I agree w/ Dr Lao's assessment. Please see the fellow's note for additional details. Diamond James professor of Infectious Disease [id number] [id number], Melinda B1.2.840.165329.1.13.104.2.7.2. [id number] 7T07:46:00Consult noteTXT1.2.840.756675.1.13.104. 2.7.2.216540|[id number] ble for patient iuej88760-2Xvjfsxt noteLNUT[address] AyxqZwnmcgdvtTyjepgqsqGIYZ82091 80826XKDNBWVOCWMREUOGFPDXSM6806 -08-17T07:46:001.2.840.125677.1 .72.3.15|1.2.840.796937.1.13.10 4.2.7.2.727879_[id number] History and Physical Notes Date/Time Note Provider Source 2023-03-25 10:40:48 6255-36-17X55:40:48Formatting IM-CARDIOVASCU LAR [facility] of this note might be different DISEASE from the original.Cardiac Cath Pre-Procedure Sedation EvaluationSee H&P for medical history and current medications. Allergies were reviewed.Indication: 52 female PMHx of HFrEF, liver cirrhosis who presents for dyspnea on exertion and HF exacerbation as well as bacteremia from intra-abdominal source (most recent Bcx negative). Had troponin leak, plan for ischemic eval with LHC and RHC for hemodynamics.NPO StatusSolids: >6 hoursClear liquids: >2 hoursHistoryHistory of anesthesia/sedation complications: NoHistory of difficult airway: NoHistory of neck problems, craniofacial abnormalities, head/neck surgery: NoIncreased risk for airway obstruction, sleep apnea, morbid obesity: No Focused Physical Exam Heart: documented in H&P NormalLung: documented in H&P NormalAirway Mallampati: II (full visibility of soft palate and part of uvula)Mouth opening: NormalRange of motion neck: NormalDentition: NormalAssessment: ASA 2Plan: Moderate sedation The risks, benefits, and treatment options of sedation were discussed with the patient/guardian and they desire to proceed. The consent form was completed and signed. Case discussed with Dr. Earlene Kitchen #[phone] ssociated attestation - Markus Chavez MD - 03/25/2023 12:23 PM CDT Agree with pre procedure assessment. 29886-8Xdfhiku and physical [id number], Afaq1.2.840.850145.1.13.104.2.7 .2.013123StksohfkYitpHC8172-90- 21T12:23:55History and physical noteTXT1.2.840.282428.1.13.104. 2.7.2.178687|[id number] ble for patient gcxx58745-2Wqkyhtg and physical noteLNIM-CARDIOVASCULAR DISEASEIM-CARDIOVASCULAR DISEASEUT[address] BvqoFpauishpgKzfyfnkgrTNLG60680 45627JTWCXTXVZLPGTPZCTUPUDC5873 -08-21T12:23:551.2.840.006042.1 .72.3.15|1.2.840.448911.1.13.10 4.2.7.2.727879_[id number] 2023-03-19 15:45:06 0757-44-62V64:45:06Formatting [facility] of this note is different from the original.MCARED Admit H&PPCP: No primary care provider on file.Date of Service: 3CHIEF COMPLAINT: SOB and facial swellingHISTORY OF PRESENT ILLNESSScheduardo Henson is a 52 year old female with a PMHx of CHF, cirrhosis, NSTEMI who presents with complaints of shortness of breath, bilateral leg edema and bilateral facial swelling that started gradually the day before admission and is occurring continuously. Patient states that her cirrhosis was diagnosed four years ago due to alcohol and takes lasix and aldactone but has been out of her medications for a month and states that she stopped taking them because she felt better and didn't feel the need to take them. Shortness of breath is worse than baseline. Severity: 9 out of 10. Patient has not attempted self treatment. Shortness of breath is worse when laying flat. Other symptoms include abdominal distention, edema of leg(s), orthopnea: Increased to using 2 pillows at night a/w palpitations. Patient has not experienced similar symptoms in the past. Patient states that she was diagnosed with Alcoholic cirrhosis four ago was placed on spironolactone and furosemide. She states that she had a theurapetic para done weekly to remove ascitic fluid with large volume paracentesis with up to 12 L. This is the patient's first time presenting with "heart issues" and states that she never had any episodes of SOB. Patient was not previously diagnosed with Hear failure. Patient has not been compliant with medications recently.Patient was brought as [facility] to [facility]. Patient is currently placed on a bumex drip, diuril and is being diuresed cautiously due to an episode of hypotension. Midodrine was started due to low bp and Troprol XL was reduced to 12.5 kg. Past medical history: High blood pressure according to patient. No previous similar symptoms. Patient had a prior upper GI bleed and was given blood transfusion. Anemia of chronic disease. Past surgical history: Hernia repair 5 years ago Social history: Smokes 1/2 a pack every 4-5 days, drinks alcohol about 1 gallon every 5-6 daysFamily history: family history is not on file.Allergies: None Lives on "[place]" MEDICATIONS (From previous hospital) - Metoprolol 25 mg po - Furesomide 40 mg- Aldactone 50 mg po - Albumin 25 g- Morphine 4mg - Ondanetron 4 mg - Albumin 25 mgREVIEW OF SYSTEMSGeneral: (+) fatigue, (+) malaiseSkin: (-) rash, (-) lesionHEENT: (+) headache, (+) change in visionNeck: (-) difficulty swallowingHeme: (-) bleeding disorderResp: (+) shortness of breath, (-) coughCardio: (+) palpitations, (-) syncopeGI: (+) abdominal pain, (-) nausea, (-) vomiting, (-) diarrheaGU: (+) dysuria, (+) increased frequencyEndo: (+) cold intoleranceNeuro: (-) numbness, (-) tingling, (-) weaknessBack: (+) painMSS: (+) joint painPsych: (-) anxiety, (-) depressionPHYSICAL EXAMINATIONVitals: 03/19/23 0623 Weight: 88.5 kg (195 lb 3.2 oz) Height: 1.676 m (5' 6") Physical Exam: General: alert and oriented x4, no apparent distressNeck: supple, no lymphadenopathy, no bruits, no JVDCardio: S1, S2 normal; no murmurs, rubs or gallopsAbdomen: soft; non-tender; non-distended; normoactive bowel soundsExtremities: no clubbing, cyanosis, or edemaSkin: no rashesLABS/ IMAGING/EKG - reviewed TTE- PendingEKG- Pending CXR- Mild Cardiomegaly with clear lungs CT Thorax- Moderate right and trace left pleural effusions with associated relaxationatelectasis.- Moderate cardiomegaly. Small pericardial effusion.- Hepatic cirrhosis and postsurgical changes of TIPS with small volume ofabdominal ascites.- Cholelithiasis.CHART REVIEW: pertinent information as below: Cr: 1.25 Hb: 10.5Burr Cells: +2AST: 59 ALT: 33TSH: 3.68Lactic Acid: 2.2ASSESSMENT/PLANScharron Angela is a 52 year old female with PMH as listed above, admitted to the hospital with:Acute on Chronic Exacerbation of Heart Failure (Systolic)- Query/New?Alcoholic Cirrhosis of the liver Subsequent NSTEMIChronic Liver DiseaseLactic AcidosisHTN- Questionable ? Patient admitted for SOB, Abdominal distension and bilateral facial swelling. Was found to have cardiomegaly on CXR, lactic acid 2.2, Cr 1.25. Patient will undergo CT Thorax, abdomen and pelvis due to hx of cirrhosis. Patient had an episode of low blood pressure (86/58) and so midodrine was started and metoprolol dose was reduced. - Admit to Red Team - c/w metoprolol 12.5 mg - c/w Midodrine 5 mg tid - Switch IV Lasix 40 mg bid to Bumex drip - c/w Tele - STAT EKG - TTE Pending - Pending CT results - Follow Troponins - Follow Blood alcohol level - NC 2 L O2 - Tylenol for pain meds - Strict I&Os- Daily Weights - Mg >2, K>4- Heparin for DVT prophylaxis. Hx of Hernia repair Abdominal wall wound dehiscence UTI- Query? Patient had a hernia repair 5 years ago and complains of abdominal wall dehiscence ever since, She is complaining of some burning with urination. UA showed some elevated leukocyte esterase. Will send urine culture. - Follow urine cultures- Wound care for evaluation of wound dehiscence in abdomen. Pain ControlledTylenolProphylaxis: DVT- heparinStress Ulcer: NO indication for prophylaxis Code Status: addressed: Full Code Bianka Jansen MD PGY1 Internal Medicine 03/19/2023 ssociated attestation - Maday Hernandez MD - 03/21/2023 8:17 AM CDT I Maday Hernandez MD personally examined the patient and agree with Dr.Abdul Jansen 's note, assessment and plan as written. Please note corrections in my addendum. I actively participated in the decision-making process. I spent a total time of 120 minutes. The non-overlapping time spent for patient care includes: pre-Charting, obtaining and/or reviewing separately obtained history (Care Everywhere and our own records), performing a full medically appropriate examination and/or evaluation, counseling and educating patient/family/caregiver, ordering not only medications but tests and/or procedures, independently interpreting prior/current results and communicating them to the patient and/or relative, ordering referrals and/or communicating with other health clinical care coordinator (not separately reported), documenting clinical information in the electronic or other health record, and care coordination (not separately reported).52 y o F transferred from OSH for CHF.Acute CHFH/o Liver cirrhosis s/p TIPSAlcoholism - activeAmphetamine use - activeSmoking - activeCAD s/p PCI in the pastHernia repair complicated by abdominal wound dehiscenceSwitch to IV Diuril and Bumex dripCT CAPEcho jjahpie53694-2Npbgkow and physical [id number], Fatima1.2.840.980799.1.13.104.2 .7.2.436562VrteYqhfqgLJ7918-84- 17T08:17:50History and physical noteTXT1.2.840.374431.1.13.104. 2.7.2.302437|[id number] ble for patient ljmd29763-4Jwcdnbw and physical noteLNUT[address] AetpHhnlgwhehAcyyhputpJEXK52377 06996XIDGUJFHWGFLGHIEPJEIWG8311 -08-17T08:17:501.2.840.050411.1 .72.3.15|1.2.840.561114.1.13.10 4.2.7.2.727879_[id number] Procedure Notes Date/Time Note Provider Source 2023-03-25 11:00:08 3203-71-26D90:00:08Formatting IM-INTERVENTIO [facility] of this note might be CARDIOLOGY STAFF different from the original. Right/ Left Heart Cath/Coronary AngiographyDate of Service: 03/25/2023 11:00 AMIndication/Diagnosis: 52 y F with PMH of CAD, cirrhosis (ascites requiring weekly paracentesis), substance abuse, who p/w SOB and edema suggestive of CHF exacerbation in the setting of medication non compliance. TTE showed EF 20-25%. Also had E faecalis bacteremia likely 2/2 infected hernia mesh. INR 1, Plt 112. Fellow: Dr Rodriguez out completed: yesAseptic technique: ChlorprepLocal Anesthesia: 1% lidocaine without epinephrineSedation: fentanyl 62.5 mcg, Versed 2.5 mgAccess site: R radial, R brachialClosure Method: Mynx nba player TR Band Manual CompressionComplications: noneProcedure Details:RHC 7 Fr R cephalic6 Fr arrow swan (swan wire for RA to RV)Manual compressionLHC/SCA5/6 Fr right radial Artery5 Fr TIG to LV (LVEDP and pullback across aortic valve), LM, RCATR band. 55 cc contrastPost-Procedure Sedation AddendumImmediately prior to start of sedation, the patient was evaluated and there was no change from the pre-procedure evaluation. I was present and directed medical care.The patient underwent moderate sedation for the procedure. The medications administered were recorded in the MAR; oxygenation, ventilation and circulation were monitored continuously and were recorded in the EMR. I evaluated the patient after the procedure.The patient was evaluated immediately as recovering from sedation. Complications: noneFindings:Right Heart Catheterization:RA 20//19RV 35/7/17PA 36//25PCWP 9/8/9SVC sat 66%PA sat 67%CO/CI (Lito): 6.36/3.44CO/CI (Thermodilution): 4.26/2.3Coronary dominance: rightLeft main: Angiographically normalLAD: MLI Type 1/2 LAD D1: Angiographically normal D2: Angiographically normalRI: Angiographically normalLCX: Small sized, MLIRCA: Large sized, calcified with mild athero PDA: Large, MLI PLB: Large, MLILVEDP: 5Impression:Elevated right sided filling pressures (mean RA 19)Mild PH (mPAP 25)Normal left sided filling pressures (LVEDP 5, PCWP 9)Normal cardiac outputOverall normal coronaries with very mild atherosclerosis and some calcification (she does not have any prior coronary stents)Plan:Aggressive medical RxGDMT for LV dysfunctionFindings and plan discussed with pt and primary team (Dr Welch).I performed this procedure and supervised the fellow. I was present for the entire duration of the procedure. Markus Chavez MD 03/25/2023 11:00 AM 63233-0Twztyygbr pvggBL3136-35-42Z68:16:47Proce dure noteTXT1.2.840.410400.1.13.104 .2.7.2.329003|[id number] lable for patient hxin79557-4Pfuateacx noteLNIM-INTERVENTIONAL CARDIOLOGY STAFFIM-INTERVENTIONAL CARDIOLOGY STAFF[address] YtcqMcfybxubsLjkpjpvbfQSVA1405 190389QZSTVSZAJLPHFFKFKIFVMV30 27-03-212:16:471.2.840.65767 0.1.72.3.15|1.2.840.747171.1.1 3.104.2.7.2.727879_[id number] 2023-03-21 17:00:00 2849-18-85G96:00:00Formatting Fareed sandra RN [facility] of this note might be different from the original.Vascular Access ServicesA bedside timeout was conducted before procedure with Micaela Delaney RN. An ultrasound guided, 4fr 10 cm. MIDLINE was then placed in the left basilic vein, in 1 attempt(s). Local anesthetic was not used. Labs were not obtained.REF#: [id number] #: [id number]: 12/03/2023 07855-0Bgfywmfkj mqcjLX7529-92-21Z86:36:23Proce dure noteTXT1.2.840.195396.1.13.104 .2.7.2.663598|[id number] lable for patient wmha81709-5Bucnfpcyc [id number] Holubka RNUTMBUTMB - [address] JbloLqpuxitjaCovhulcguVVQZ6796 625638BNEAKAJFNHWZNRBYYLRVET40 27-03-17T17:36:231.2.840.55252 0.1.72.3.15|1.2.840.771961.1.1 3.104.2.7.2.727879_[id number]
[2023-06-06] MEDS ORDERED: NA CHLORIDE 0.9% 1,000 ML ONE (01:25)
[2023-06-06 01:27] LABS: Absolute Lymphocytes (CBC) 0.3 K/uL (0.7-4.9); Hematocrit 30.2 % (36.0-45.0); Lymphocytes % 8.8 % (15.3-44.8); MCV 91.1 fL (80-100); Platelets 101 thou/uL (152-406); RBC Red Blood Cell Count 3.31 M/uL (3.86-4.86)
[2023-06-06] MEDS ORDERED: FAMOTIDINE 20 MG/2 ML VIAL IV ONE (01:48)
[2023-06-06 01:53] LABS: Protime INR 1.5
[2023-06-06 01:57] LABS: Albumin 2.6 g/dL (3.4-5.0); Bilirubin Direct 1.1 mg/dL (0-0.2); Bilirubin Indirect, Calculated 0.9 mg/dL (0.2-0.8); Magnesium 2.4 mg/dL (1.6-2.4); Potassium 3.8 mEq/L (3.5-5.1); Protein, Total 7.6 g/dL (6.4-8.2)
[2023-06-06 01:58] LABS: Thyroid Stimulating Hormone 5.5 uIU/mL (0.358-3.740)
[2023-06-06 02:00] LABS: Troponin High Sensitivity 110.8 pg/mL (<58.9)
--- NOTE | 2023-06-06 02:29 | ER ---
Nurse's Notes [facility] Name: Amauri Miller Age: 52 yrs Sex: Female : 1970 Arrival Date: 06/06/2023 Time: 00:43 Bed 8 Private MD: Diagnosis: Alcoholic cirrhosis of liver with ascites;Cardiomegaly;Combined systolic (congestive) and diastolic (congestive) heart failure;Anemia, unspecified;Secondary thrombocytopenia;Dyspnea, unspecified;Non ST elevation [place] Presentation: 06/06 00:47 Chief complaint: Patient states: started feeling short of breath this morning jw7 (06/05/23) around 0930, and continued to get worse throughout the day. Stated "It felt like I was having heart palpitations". Coronavirus screen: At this time, the client does not indicate any symptoms associated with coronavirus-19. Ebola Screen: No symptoms or risks identified at this time. Initial Sepsis Screen: Does the patient meet any 2 criteria? No. Patient's initial sepsis screen is negative. Does the patient have a suspected source of infection? No. Patient's initial sepsis screen is negative. Risk Assessment: Do you want to hurt yourself or someone else? Patient reports no desire to harm self or others. Onset of symptoms was June 05, 2023 at 09:30. Care prior to arrival: Pt took her Primatene MIST Inhaler before EMS arrived. 00:47 Acuity: CASI 3 jw7 00:47 Method Of Arrival: EMS: [facility] jw7 Triage Assessment: 00:52 General: Appears in no apparent distress. comfortable, Behavior is calm, cooperative. jw7 Pain: Denies pain. EENT: No deficits noted. No signs and/or symptoms were reported regarding the EENT system. Neuro: Andrade Agitation-Sedation Scale (RASS): 0 - Alert and Calm Level of Consciousness is awake, alert, obeys commands, Oriented to person, place, time, situation. Cardiovascular: Heart tones S1 S2 present Capillary refill < 3 seconds Clubbing of nail beds is present JVD is absent Patient's skin is warm and dry. Respiratory: Airway is patent Trachea midline Respiratory effort is even, unlabored, Respiratory pattern is regular, symmetrical. GI: Abdomen is flat, non-distended, Bowel sounds present X 4 quads. : No deficits noted. No signs and/or symptoms were reported regarding the genitourinary system. Derm: Skin is intact, is healthy with good turgor, Skin is dry, Skin is normal, Skin temperature is warm. Musculoskeletal: Circulation, motion, and sensation intact. Range of motion: intact in all extremities. Historical: - Allergies: 00:52 No Known Allergies; jw7 - PMHx: 00:52 Anemia; Cirrhosis; esophageal varices; Hernia; second one; possible htn; jw7 - PSHx: 00:52 Hernia Repair (possible htn); jw7 - Immunization history:: Adult Immunizations unknown, Client reports having NOT received the Covid vaccine. Flu vaccine is not up to date. Patient has never been vaccinated. - Social history:: Smoking status: Patient reports the use of cigarette tobacco products, smokes one-half pack cigarettes per day, Reported history of juuling and/or vaping. Stated "I stopped drinking alcohol 2.5 weeks ago" . Screenin:02 [facility] ED Fall Risk Assessment (Adult) History of falling in the last 3 months, jw7 including since admission No falls in past 3 months (0 pts) Score/Fall Risk Level 0 - 2 = Low Risk Oriented to surroundings, Maintained a safe environment. Abuse screen: Denies threats or abuse. Denies injuries from another. Nutritional screening: No deficits noted. Tuberculosis screening: No symptoms or risk factors identified. Assessment: 01:15 General: SEE TRIAGE NOTE. bp 01:39 Reassessment: Patient appears in no apparent distress at this time. Patient is alert, bp oriented x 3, equal unlabored respirations, skin warm/dry/pink. 03:00 Reassessment: Patient appears in no apparent distress at this time. No changes from jw7 previously documented assessment. Patient and/or family updated on plan of care and expected duration. Pain level reassessed. Patient is alert, oriented x 3, equal unlabored respirations, skin warm/dry/pink. Vital Signs: 00:47 BP 109 / 78; Pulse 108; Resp 16 S; Temp 97.7; Pulse Ox 100% on R/A; Weight 77.11 kg; jw7 Height 5 ft. 5 in. ; Pain 0/10; 01:39 BP 105 / 64; Pulse 98; Resp 13; Pulse Ox 97% ; bp 03:00 BP 107 / 68; Pulse 94; Resp 22 S; Pulse Ox 98% on R/A; jw7 00:47 Body Mass Index 28.29 (77.11 kg, 165.1 cm) jw7 00:47 Pain Scale: Adult jw7 ED Course: 00:46 Patient arrived in ED. jw7 00:47 Josh Guevara MD is Attending Physician. bro 00:52 Triage completed. jw7 00:52 Arm band placed on. jw7 01:02 Patient has correct armband on for positive identification. Bed in low position. Call jw light in reach. Side rails up X2. 01:07 Inserted saline lock: 22 gauge in right forearm, using aseptic technique. Blood bp collected. 01:14 XRAY Chest (1 view) In Process Unspecified. EDMS 01:15 Abraham Hirsch, KIMBERLY is Primary Nurse. bp 02:01 Notified ED physician of a critical lab result(s). D Dimer 5147 Troponin 110.8. kl 02:27 Ion Angeles is Hospitalizing Provider. bro 02:41 CT Chest For PE Angio In Process Unspecified. EDMS 03:42 US Extremity Venous W Compression Tevin In Process Unspecified. EDMS 07:32 No provider procedures requiring assistance completed. Patient admitted, IV remains in ld1 place. Administered Medications: 02:26 Discontinued: ns 0.9% 1000 ml IV at 125 ml/hr continuous bro 01:15 Drug: NS 0.9% IV 1000 ml IV at 125 ml/hr continuous Route: IV; Rate: 125 ml/hr; Site: bp right forearm; 01:38 Drug: Famotidine IVP 20 mg IVP once; dilute with 10 mL 0.9% NaCl; give over 2 minutes bp Route: IVP; Site: right forearm; 03:09 Follow up: Response: No adverse reaction jw7 01:38 Drug: NS 0.9% IV 500 ml IV at bolus once Route: IV; Rate: bolus; Site: right forearm; bp 03:09 Drug: Furosemide IVP 40 mg IVP once; give over 2 minutes Route: IVP; Site: right jw forearm; Medication: 07:32 VIS not applicable for this client. ld1 Outcome: 02:28 Decision to Hospitalize by Provider. bro 07:32 Admitted to ER Hold. Please see [facility] for further documentation. ld1 07:32 Condition: stable 07:32 Instructed on the need for admit, 10:14 Patient left the ED. ld1 Signatures: Dispatcher [employer] Sherlyn Rico, RN RN Josh Zuluaga MD MD cha Peltier, Brian RN RN Maria D Damon RN RN ld1 Isabel Downs RN RN jw7
--- NOTE | 2023-06-06 02:29 | EDPHYS ---
Physician Documentation [facility] Name: Amauri Miller Age: 52 yrs Sex: Female : 1970 Arrival Date: 06/06/2023 Time: 00:43 Bed 8 Private MD: ED Physician Josh Guevara HPI: 06/06 01:37 This 52 yrs old Female presents to ER via EMS with complaints of Palpitations.bro 01:37 The patient presents with a history of heart racing. Context: The symptoms occur at [facility] rest, during sleep. Onset: The symptoms/episode began/occurred just prior to arrival, this morning. Duration: The patient or guardian reports a single episode, IMPROVING. Modifying factors: The symptoms are aggravated by anxiety, light activity. Associated signs and symptoms: Pertinent positives: anxiety, chest pain, lightheadedness, SOB. Severity of symptoms: At their worst the symptoms were mild moderate in the emergency department the symptoms are unchanged. The patient has not experienced similar symptoms in the past. Historical: - Allergies: 00:52 No Known Allergies; jw7 - PMHx: 00:52 Anemia; Cirrhosis; esophageal varices; Hernia; second one; possible htn; jw7 - PSHx: 00:52 Hernia Repair (possible htn); jw7 - Immunization history:: Adult Immunizations unknown, Client reports having NOT received the Covid vaccine. Flu vaccine is not up to date. Patient has never been vaccinated. - Social history:: Smoking status: Patient reports the use of cigarette tobacco products, smokes one-half pack cigarettes per day, Reported history of juuling and/or vaping. Stated "I stopped drinking alcohol 2.5 weeks ago" . ROS: 01:40 Constitutional: Negative for fever, chills, and weight loss, Eyes: Negative for injury, bro pain, redness, and discharge, ENT: Negative for injury, pain, and discharge, Neck: Negative for injury, pain, and swelling, Cardiovascular: Negative for chest pain, palpitations, and edema, Respiratory: Negative for shortness of breath, cough, wheezing, and pleuritic chest pain, Back: Negative for injury and pain, : Negative for injury, bleeding, discharge, and swelling, MS/Extremity: Negative for injury and deformity, Skin: Negative for injury, rash, and discoloration, Neuro: Negative for headache, weakness, numbness, tingling, and seizure, Psych: Negative for depression, anxiety, suicide ideation, homicidal ideation, and hallucinations, Allergy/Immunology: Negative for hives, rash, and allergies, Endocrine: Negative for neck swelling, polydipsia, polyuria, polyphagia, and marked weight changes, Hematologic/Lymphatic: Negative for swollen nodes, abnormal bleeding, and unusual bruising, 01:40 Abdomen/GI: Positive for abdominal pain, of the umbilical area, CHRONIC WOUND, 01:40 MS/extremity: Negative for acute changes, Exam: 01:40 Constitutional: This is a well developed, well nourished patient who is awake, alert, bro and in no acute distress. Head/Face: Normocephalic, atraumatic. Eyes: Pupils equal round and reactive to light, extra-ocular motions intact. Lids and lashes normal. Conjunctiva and sclera are non-icteric and not injected. Cornea within normal limits. Periorbital areas with no swelling, redness, or edema. ENT: Nares patent. No nasal discharge, no septal abnormalities noted. Tympanic membranes are normal and external auditory canals are clear. Oropharynx with no redness, swelling, or masses, exudates, or evidence of obstruction, uvula midline. Mucous membranes moist. Neck: Trachea midline, no thyromegaly or masses palpated, and no cervical lymphadenopathy. Supple, full range of motion without nuchal rigidity, or vertebral point tenderness. No Meningismus. Chest/axilla: Normal chest wall appearance and motion. Nontender with no deformity. No lesions are appreciated. Respiratory: Lungs have equal breath sounds bilaterally, clear to auscultation and percussion. No rales, rhonchi or wheezes noted. No increased work of breathing, no retractions or nasal flaring. Abdomen/GI: Soft, non-tender, with normal bowel sounds. No distension or tympany. No guarding or rebound. No evidence of tenderness throughout. Back: No spinal tenderness. No costovertebral tenderness. Full range of motion. Skin: Warm, dry with normal turgor. Normal color with no rashes, no lesions, and no evidence of cellulitis. MS/ Extremity: Pulses equal, no cyanosis. Neurovascular intact. Full, normal range of motion. Neuro: Awake and alert, GCS 15, oriented to person, place, time, and situation. Cranial nerves II-XII grossly intact. Motor strength 5/5 in all extremities. Sensory grossly intact. Cerebellar exam normal. Normal gait. Psych: Awake, alert, with orientation to person, place and time. Behavior, mood, and affect are within normal limits. 01:40 Cardiovascular: Rate: tachycardic, actual rate is 112 bpm, Rhythm: regular, Pulses: Pulses are 4+ in bilateral radial, brachial, femoral, popliteal, posterior tibial and and dorsalis pedis arteries.. Heart sounds: normal, Edema: is not appreciated, JVD: is not appreciated, 01:40 ECG was reviewed by the Attending Physician. Vital Signs: 00:47 BP 109 / 78; Pulse 108; Resp 16 S; Temp 97.7; Pulse Ox 100% on R/A; Weight 77.11 kg; jw7 Height 5 ft. 5 in. ; Pain 0/10; 01:39 BP 105 / 64; Pulse 98; Resp 13; Pulse Ox 97% ; bp 03:00 BP 107 / 68; Pulse 94; Resp 22 S; Pulse Ox 98% on R/A; jw7 00:47 Body Mass Index 28.29 (77.11 kg, 165.1 cm) [facility] 00:47 Pain Scale: Adult jw7 MDM: 00:47 Patient medically screened. bro 01:44 DESI Risk Score: 1 - 3 or more CAD risk factors, [Family HX] [HTN] [Active Smoker]. bro Differential diagnosis: arrythmia, dehydration, stress disorder. Data reviewed: vital signs, nurses notes, lab test result(s), EKG, radiologic studies, CT scan, plain films. Consideration of Admission/Observation Escalation of care including admission/observation considered. I considered the following discharge prescriptions or medication management in the emergency department Medications were administered in the Emergency Department. See MAR. Independent interpretation of the following test(s) in the Emergency Department EKG: See my EKG interpretation above. Test considered but Not performed: Ultrasound NO ABD USG. Care significantly affected by the following chronic conditions: HTN,ANEMIA, CIRRHOSIS, VARICES. 06/06 00:48 Order name: Basic Metabolic Panel; Complete Time: 02:23 bro 06/06 00:48 Order name: CBC with Diff; Complete Time: 03:44 bro 06/06 00:48 Order name: LFT's; Complete Time: 02:23 bro 06/06 00:48 Order name: Magnesium; Complete Time: 02:23 [facility] 06/06 00:48 Order name: NT PRO-BNP; Complete Time: 02:23 [facility] 06/06 00:48 Order name: PT-INR; Complete Time: 02:23 [facility] 06/06 00:48 Order name: Troponin HS; Complete Time: 02:23 [facility] 06/06 00:48 Order name: Lipase; Complete Time: 02:23 [facility] 06/06 00:48 Order name: Urinalysis w/ reflexes [facility] 06/06 01:37 Order name: AMMONIA; Complete Time: 03:44 [facility] 06/06 01:40 Order name: D-Dimer; Complete Time: 02:23 [facility] 06/06 01:41 Order name: Thyroid Stimulating Hormone; Complete Time: 02:23 [facility] 06/06 01:51 Order name: CBC Smear Scan; Complete Time: 03:44 [facility] 06/06 02:03 Order name: T4 Free; Complete Time: 02:23 [facility] 06/06 05:32 Order name: CBC with Automated Diff [facility] 06/06 05:32 Order name: CBC with Automated Diff [facility] 06/06 05:32 Order name: Comprehensive Metabolic Panel [facility] 06/06 05:32 Order name: Comprehensive Metabolic Panel [facility] 06/06 09:06 Order name: Troponin High Sensitivity [facility] 06/06 00:48 Order name: XRAY Chest (1 view) [facility] 06/06 01:37 Order name: CT Chest For PE Angio [facility] 06/06 02:23 Order name: US Extremity Venous W Compression Tevin [facility] 06/06 05:34 Order name: Echo with Doppler [facility] 06/06 00:48 Order name: EKG; Complete Time: 00:49 [facility] 06/06 00:48 Order name: Cardiac monitoring; Complete Time: 01:00 [facility] 06/06 00:48 Order name: EKG - Nurse/Tech; Complete Time: 01:15 [facility] 06/06 00:48 Order name: IV Saline Lock; Complete Time: 01:15 [facility] 06/06 00:48 Order name: Labs collected and sent; Complete Time: 01:15 [facility] 06/06 00:48 Order name: O2 Per Protocol; Complete Time: 01:00 [facility] 06/06 00:48 Order name: O2 Sat Monitoring; Complete Time: 01:00 [facility] EC:40 Rate is 101 beats/min. Rhythm is regular. QRS [place] is Normal. [place] interval is normal. bro QRS interval is prolonged at 148 msec. QT interval is normal. No Q waves. T waves are Normal. No ST changes noted. Clinical impression: Abnormal EKG without significant change and No evidence of ischemia. Interpreted by me. Reviewed by me. Administered Medications: 02:26 Discontinued: ns 0.9% 1000 ml IV at 125 ml/hr continuous bro 01:15 Drug: NS 0.9% IV 1000 ml IV at 125 ml/hr continuous Route: IV; Rate: 125 ml/hr; Site: bp right forearm; 01:38 Drug: Famotidine IVP 20 mg IVP once; dilute with 10 mL 0.9% NaCl; give over 2 minutes bp Route: IVP; Site: right forearm; 03:09 Follow up: Response: No adverse reaction jw7 01:38 Drug: NS 0.9% IV 500 ml IV at bolus once Route: IV; Rate: bolus; Site: right forearm; bp 03:09 Drug: Furosemide IVP 40 mg IVP once; give over 2 minutes Route: IVP; Site: right jw7 forearm; Disposition Summary: 06/06/23 02:28 Hospitalization Ordered Notes: Hospitalization Status: Inpatient Admission bro Provider: Ion Angeles cha Condition: Fair bro Problem: new bro Symptoms: have improved bro Bed/Room Type: Standard bro Location: [facility] ER HOLD(06/06/23 03:56) [facility] Room Assignment: ERHOLD-(06/06/23 03:56) eb1 Diagnosis - Alcoholic cirrhosis of liver with ascites bro - Cardiomegaly bro - Combined systolic (congestive) and diastolic (congestive) heart failure bro - Anemia, unspecified bro - Secondary thrombocytopenia bro - Dyspnea, unspecified bro - Non ST elevation [place] bro Forms: - Medication Reconciliation Form bro - SBAR form bro - Leadership Thank You Letter bro Signatures: Dispatcher [employer] EDMS Josh Guevara MD MD cha Peltier, Brian RN RN bp Sharona Nixon RN RN eb Isabel Downs RN RN jw7 Corrections: (The following items were deleted from the chart) 01:40 01:25 D-DIMER+COAG.LAB.BRZ ordered. EDMS EDMS 01:41 01:25 THYROID STIMULAT HORMONE+C.LAB.BRZ ordered. EDMS EDMS 03:56 02:28 Telemetry/MedSurg (Inpatient) [place] [id number] 03:56 02:28 [place] [id number]
[2023-06-06 03:00] LABS: Anisocytosis 2+; Blood Morphology Comment NOTED (NOT SEEN); Burr Cells 2+; Platelet Estimate ADEQ; White Blood Cell Scan OK (OK)
[2023-06-06] MEDS ORDERED: FUROSEMIDE 40 MG/4 ML VIAL ONE ×2 (03:04→07:58)
[2023-06-06 05:22] VITALS: BP 148/72; TEMP 97.6
--- NOTE | 2023-06-06 05:22 | P.HP ---
Certification for Inpatient Patient admitted to: Inpatient With expected LOS: >2 Midnights Patient will require the following post-hospital care: None Practitioner: I am a practitioner with admitting privileges, knowledge of patient current condition, hospital course, and medical plan of care. Services: Services provided to patient in accordance with Admission requirements found in Title 42 Section 412.3 of the Code of Federal Regulations Patient History Date of Service: 06/06/23 Reason for admission: SOB History of Present Illness: 52 yrs old Female with past medical history of hypertension, hyperlipidemia, alcoholic cirrhosis, tobacco abuse, portal hypertension, anemia, brought to ER with palpitation and shortness of breath. Patient think that she had a panic attack. Denies any chest pain. Associated with shortness of breath which was progressive even to minimal exertion and also orthopneic. Denies any fever or chills. No cough. Associated with lightheadedness. Denies any diaphoresis. Patient has been having shortness of breath and severely anxious and was brought to ER. No nausea vomiting or diarrhea. No melena. Patient states that she is taking her medications regularly. No previous history of CAD or CHF. Patient was assessed in the ER and was found to be severely short of breath and elevated BNP and troponin and was admitted for further management . Allergies No Known Allergies Allergy (Verified 02/10/19 18:00) Home medications list reviewed: Yes Home Medications: ondansetron HCL [Zofran] 4 mg PO Q8H PRN 04/06/18 Melatonin/Pyridoxine [Melatonin 5 mg Tablet] 10 mg PO BEDTIME 09/10/18 Pyridoxine [Vitamin B-6*] 50 mg PO BID 09/10/18 Ferrous Sulfate [Iron] 325 mg PO BID #60 tablet 09/27/18 Folic Acid 1 mg PO DAILY #30 tablet 09/27/18 Pantoprazole [Protonix Tab*] 40 mg PO BIDAC #60 tab 09/27/18 Rifaximin [Xifaxan] 550 mg PO BID #60 tablet 09/27/18 Thiamine HCl [Vitamin B-1*] 100 mg PO DAILY #30 tablet 09/27/18 Lactulose [Cephulac*] 30 ml PO TID 02/10/19 Midodrine HCl [Proamatine*] 5 mg PO BID 02/10/19 Potassium 1 tab PO DAILY 02/10/19 Spironolactone [Aldactone*] 50 mg PO BID 02/10/19 - Past Medical/Surgical History Diabetic: No Past Medical History: Reviewed- Non-Contributory -: Severe alcoholic cirrhosis -: Severe abdominal ascites with Multiple paracentesis -: History of GI bleed with esophageal varices -: Portal hypertensive gastropathy -: Anemia of chronic disease with iron deficiency -: anemia -: esophageal varices -: hernia Past Surgical History: Reviewed- Non-Contributory -: Multiple paracentesis -: Hernia repair -: Esophageal banding with multiple EGD's Psychosocial/ Personal History: Patient is single. She has 3 children. She does not work. - Family History Family History: Reviewed- Non-Contributory - Family History Father -: Liver disease Notes: patient adopted, does not any history of her parents - Social History Smoking Status: Current some day smoker Alcohol use: No CD- Drugs: No Caffeine use: Yes Review of Systems 10-point ROS is otherwise unremarkable General: Weakness Eyes: Unremarkable ENT: Unremarkable Cardiovascular: Orthopnea, Paroxysmal Noc. Dyspnea, Edema, Light Headedness Gastrointestinal: Nausea, Unremarkable Genitourinary: Unremarkable Musculoskeletal: Unremarkable Integumentary: Unremarkable Neurological: Unremarkable Physical Examination - Vital Signs Temperature: 97.6 F Blood Pressure: 148/72 Pulse: 88 Respirations: 18 Pulse Ox (%): 98 - Physical Exam General: Alert, Oriented x3, Mild distress HEENT: Atraumatic, Normocephalic Neck: Supple Respiratory: Diminished, Crackles/rales Cardiovascular: Regular rate/rhythm, Normal S1 S2, No gallops, Edema Capillary refill: <2 Seconds Gastrointestinal: Soft and benign, No tenderness, Distended, Ascites Musculoskeletal: No clubbing, No erythema, No tenderness, Swelling Integumentary: No rashes Neurological: Normal speech, Normal strength at 5/5 x4 extr, Cranial nerves 3-12 intact, Normal reflexes 2+ Lymphatics: No axilla or inguinal lymphadenopathy Other Physical/Emotional Findings: Anxious - Studies Laboratory Data (last 24 hrs) 06/06/23 06/06/23 06/06/23 01:07 01:07 01:07 WBC 3.50 L Hgb 9.6 L Hct 30.2 L Plt Count 101 L PT 16.5 H INR 1.50 Sodium 138 Potassium 3.8 BUN 15 Creatinine 1.05 H Glucose 89 Magnesium 2.4 Total Bilirubin 2.0 H AST 40 H ALT 25 Alkaline Phosphatase 133 H Lipase 42 Assessment and Plan - Problems (Diagnosis) (1) NSTEMI (non-ST elevated myocardial infarction) Current Visit: Yes Status: Acute Plan: Patient denies any chest pain Noted to have elevated troponin We will trend troponin Started on aspirin statin Monitor closely under telemetry We will get an echocardiogram Cardiology consult if troponins trending high (2) CHF exacerbation Current Visit: Yes Status: Acute Plan: Patient denies any previous history of CHF Patient has fluid overload from cirrhosis liver Started on aggressive diuresis Monitor renal parameters We will get an echocardiogram Continue diuresis, control of blood pressure, Coreg and SANTANA or ARB Monitor closely on telemetry (3) Cirrhosis, alcoholic Current Visit: No Status: Chronic Plan: Continue lactulose Patient did present alert awake oriented Continue home medications and titrate as needed Qualifiers: (4) Anemia Onset Date: 10/21/17 Current Visit: No Status: Chronic Plan: Anemia of chronic disease Monitor CBC Continue home medications Transfuse if hemoglobin drops to less than 7 Qualifiers: (5) Ascites Onset Date: 09/11/18 Current Visit: No Status: Chronic Plan: Continue diuretics At present does not need paracentesis Monitor closely Monitor LFTs and INR Qualifiers: (6) GERD (gastroesophageal reflux disease) Onset Date: 10/21/17 Current Visit: No Status: Chronic Plan: Continue home medications (7) Anxiety Current Visit: Yes Status: Acute Plan: Continue antianxiety medications Titrate as needed Reiterated the need for medication compliance Discharge Plan: Home Plan to discharge in: 48 Hours - Advance Directives Does patient have a Living Will: No Does patient have a Durable POA for Healthcare: No - Code Status/Comfort Care Code Status: Full Code Time Spent Managing Pts Care (In Minutes): 46
[2023-06-06 05:27] LABS: Specific Gravity 1.012 (1.005-1.030); Urine Bacteria <20 /HPF (<20); Urine Bilirubin NEGATIVE (Negative); Urine Blood Trace (Negative); Urine Clarity Extremely Turbid (Clear); Urine Color Light-Yellow (Yellow); Urine Glucose NEGATIVE (Negative); Urine Mucus Slight /HPF (None Seen); Urine Protein NEGATIVE (Negative); Urine Urobilinogen Normal (Normal); Urine WBC Clump Rare /HPF (None Seen); Urine pH 6.5 (5.0-7.0)
[2023-06-06] MEDS ORDERED: ACETAMINOPHEN 500 MG TAB PO PRN (05:27)
[2023-06-06] MEDS ORDERED: ONDANSETRON 4 MG/2 ML VIAL IV PRN (05:27)
[2023-06-06] MEDS ORDERED: MORPHINE 2 MG/ML SYR IV PRN (05:27)
[2023-06-06 06:18] VITALS: BMI 28.1
[2023-06-06] MEDS ORDERED: PANTOPRAZOLE 40MG TABLET PO SCH (07:30)
[2023-06-06] MEDS ORDERED: THIAMINE HCL 100 MG TABLET ONE (07:57)
[2023-06-06] MEDS ORDERED: PANTOPRAZOLE 40MG TABLET PO ONE (07:57)
[2023-06-06] MEDS ORDERED: FOLIC ACID 1 MG TABLET ONE (07:58)
[2023-06-06] MEDS ORDERED: LACTULOSE 20 GM/30 ML UCUP ONE (07:58)
[2023-06-06] MEDS ORDERED: ASPIRIN EC 81 MG TAB PO ONE (07:59)
[2023-06-06] MEDS ORDERED: INFLUENZA VACCINE (for 6+ mo) 0.5 ML DOSE IMVAC ONE (08:00)
[2023-06-06 08:44] VITALS: O2SAT 98
[2023-06-06] MEDS ORDERED: ASPIRIN EC 81 MG TAB PO SCH (09:00)
[2023-06-06] MEDS ORDERED: MIDODRINE HCL 5 MG TABLET PO SCH (09:00)
[2023-06-06] MEDS ORDERED: FERROUS SULFATE 325 MG TAB PO SCH (09:00)
[2023-06-06] MEDS ORDERED: LACTULOSE 20 GM/30 ML UCUP PO SCH (09:00)
[2023-06-06] MEDS ORDERED: Rifaximin 550 MG Tab PO SCH (09:00)
[2023-06-06] MEDS ORDERED: SPIRONOLACTONE 25 MG TABLET PO SCH (09:00)
[2023-06-06] MEDS ORDERED: FUROSEMIDE 40 MG/4 ML VIAL IV SCH (09:00)
[2023-06-06] MEDS ORDERED: PYRIDOXINE (VIT B6) 50 MG TAB PO SCH (09:00)
[2023-06-06] MEDS ORDERED: THIAMINE HCL 100 MG TABLET PO SCH (09:00)
[2023-06-06] MEDS ORDERED: FOLIC ACID 1 MG TABLET PO SCH (09:00)
--- NOTE | 2023-06-06 09:45 | EKG ---
Test Date: 2023-06-06 Test Time: 01:18:22 Extension Worker: JANESSA MEASUREMENT RESULTS: Intervals: Rate: 101 WV: 170 QRSD: 148 QT: 414 QTc: 536 [place]: P: 52 WV: 170 QRS: 69 T: 17 INTERPRETIVE STATEMENTS: Sinus tachycardia with fusion complexes Nonspecific intraventricular block Lateral infarct, age undetermined Abnormal ECG Compared to ECG 03/18/2023 22:14:39 Fusion complex(es) now present Sinus rhythm no longer present Myocardial infarct finding still present Electronically Signed On 06-06-23 09:44:55 CDT by Filiberto Soliz
--- NOTE | 2023-06-06 11:53 | RAD REPORT ---
EXAM DESCRIPTION: US Duplex Bilateral Lower Extremities Veins CLINICAL HISTORY: The patient is 52 years old and is Female; PAIN TECHNIQUE: Real-time duplex ultrasound scan of the bilateral lower extremity veins integrating B-mod e two-dimensional vascular structure, Doppler spectral analysis, color flow Doppler imaging and compr ession. COMPARISON: No relevant prior studies available. FINDINGS: Right deep veins: Unremarkable. No DVT in the right common femoral, femoral, proximal deep femoral or popliteal veins. The veins demonstrate normal color flow, are normally compressible , with normal phasic flow and/or augmentation response. Right superficial veins: Unremarkable. No thrombus in the visualized right great saphenous vein . Left deep veins: Unremarkable. No DVT in the left common femoral, femoral, proximal deep femora l or popliteal veins. The veins demonstrate normal color flow, are normally compressible, with norm al phasic flow and/or augmentation response. Left superficial veins: Unremarkable. No thrombus in the visualized left great saphenous vein. Soft tissues: No acute findings. No popliteal cyst. IMPRESSION: No evidence of acute DVT, bilateral lower extremities. Electronically signed by: La Nena Lucio MD 06/06/2023 4:05 AM CDT Due to temporary technical issues with the PACS/Fluency reporting system, reports are being signed by the in house radiologist without review as a courtesy to ensure prompt reporting. The interpreting r adiologist is fully responsible for the content of the report.
--- NOTE | 2023-06-06 11:54 | RAD REPORT ---
EXAM DESCRIPTION: CT Angiography Chest With Intravenous Contrast CLINICAL HISTORY: DYSPNEA TECHNIQUE: Axial computed tomographic angiography images of the chest with intravenous contrast. S agittal and coronal reformatted images were created and reviewed. This CT exam was performed using one or more of the following dose reduction techniques: automated exposure control, adjustment of t he mA and/or kV according to patient size, and/or use of iterative reconstruction technique. MIP reconstructed images were created and reviewed. COMPARISON: No relevant prior studies available. FINDINGS: Pulmonary arteries: Unremarkable. No pulmonary arterial filling defects. Aorta: Minimal atherosclerotic disease. No thoracic aortic aneurysm. Lungs: Mild right basilar consolidation. Pleural space: Small to moderate right pleural effusion. No pneumothorax. Heart: The heart is moderately enlarged. Moderate pericardial effusion. Coronary artery calcifi cation. No evidence of RV dysfunction. Bones/joints: See below. Soft tissues: Diffuse body wall edema. Lymph nodes: Unremarkable. No enlarged lymph nodes. Liver: The liver is enlarged with surface contour nodularity. Partially visualized hips. Intraperitoneal space: Small amount of ascites in the upper abdomen. IMPRESSION: 1. No pulmonary embolic disease. 2. Small to moderate right pleural effusion. Adjacent right basilar consolidation (atelectasis an d/or infiltrate). 3. Moderate pericardial effusion. 4. Other findings as above. Electronically signed by: Fozia Omalley MD 06/06/2023 3:16 AM CDT Due to temporary technical issues with the PACS/Fluency reporting system, reports are being signed by the in house radiologist without review as a courtesy to ensure prompt reporting. The interpreting r adiologist is fully responsible for the content of the report.
--- NOTE | 2023-06-06 12:08 | RAD REPORT ---
EXAM DESCRIPTION: XR Chest, 1 View CLINICAL HISTORY: The patient is 52 years old and is Female; DYSPNEA TECHNIQUE: Frontal view of the chest. COMPARISON: No relevant prior studies available. FINDINGS: Lungs: Possible right basilar consolidation. Pleural space: Blunting of the right costophrenic angle which may indicate a right pleural effusi on. No pneumothorax. Heart: Cardiac silhouette appears enlarged. Mediastinum: Unremarkable. Bones/joints: No acute findings. IMPRESSION: 1. Cardiac silhouette appears enlarged. 2. Blunting of the right costophrenic angle which may indicate a right pleural effusion. 3. Possible right basilar consolidation. Electronically signed by: John Russ MD 06/06/2023 1:27 AM CDT Due to temporary technical issues with the PACS/Fluency reporting system, reports are being signed by the in house radiologist without review as a courtesy to ensure prompt reporting. The interpreting r adiologist is fully responsible for the content of the report.
--- NOTE | 2023-06-06 14:46 | P.DS ---
Admission Date: 06/06/23 Discharge Date: 06/06/23 Reason for Admission: SOB Hospital Course: Problem: SD Amauri Miller is a pleasant 52 year old female with a past medical history significant for hypertension, hyperlipidemia, alcoholic cirrhosis, tobacco abuse, portal hypertension, anemia who was [facility] to [facility] on 06/06/23 for SD and CHF exacerbation. Amauri Miller presented to the ED with palpiations and severe shortness of breath. She had elevated troponin of 110/348, with negative EKG, and continued SOB. She reports using an inhaler which made her SOB worse and came to the ED thinking she was having a panic attack. Based on her history of SD with stent placement, her symptoms, and elevated troponins the medical staff deemed it necessary to admit her for further evaluation. Amauri was not willing to stay for admission for further observation, evaluation, and treatment. I personally spent 90 minutes in her room discussing the chance of high risk of cardiac arrest and upon leaving the facility based on her newly found lab values and continued SOB with heart palpitation. Amauri is of sound mind and was able to repeat in her own words her understanding of our conversation. She was anxious and stressed about needing to move after her daughter's recent murder and presently she is without a vehicle. She decided she needed to also straighten out her living arrangements since her eviction was scheduled for today. She states she will return to the ED later today, I continued to stress the need for her to remain for admission to save her life and get a more clear picture of her heart condition. Amauri has left the facility AMA. Today, I personally spent 90 minutes with Amauri, this time was spent in patient education of her life threatening medical situation she is currently experiencing. I have not recommended discharge <Jossy Tolliver - Last Filed: 06/06/23 16:23> Admission Date: 06/06/23 Discharge Date: 06/06/23 - Problems (1) NSTEMI (non-ST elevated myocardial infarction) Status: Acute (2) Palpitations Status: Acute (3) Alcoholic cirrhosis Onset Date: 09/11/18 Status: Chronic Qualifiers: Hospital Course: Working diagnosis-NSTEMI, SD not excluded. Patient was advised to stay in the hospital for further evaluation and treatment for NSTEMI. She was made aware her risk include cardiac arrest and if she does not stay for treatment. She voiced understanding but she signed out AGAINST MEDICAL ADVICE. <renee hartley - Last Filed: 06/06/23 16:55> Disposition: AMA-LEFT AGAINST MEDICAL ADVIC Vital Signs/Physical Exam: Temp Pulse Resp BP Pulse Ox 97.6 F 88 18 148/72 H 98 06/06/23 05:26 06/06/23 05:26 06/06/23 05:26 06/06/23 05:26 06/06/23 05:26 Other Physical/Emotional Findings: Anxious Laboratory Data at Discharge: WBC 3.50 thou/uL (4.3-10.9) L 06/06/23 01:07 Hgb 9.6 g/dL (12.0-15.0) L 06/06/23 01:07 Hct 30.2 % (36.0-45.0) L 06/06/23 01:07 Plt Count 101 thou/uL (152-406) L 06/06/23 01:07 PT 16.5 SECONDS (9.5-12.5) H 06/06/23 01:07 INR 1.50 06/06/23 01:07 Sodium 138 mEq/L (136-145) 06/06/23 01:07 Potassium 3.8 mEq/L (3.5-5.1) 06/06/23 01:07 BUN 15 mg/dL (7-18) 06/06/23 01:07 Creatinine 1.05 mg/dL (0.55-1.02) H 06/06/23 01:07 Glucose 89 mg/dL (74-106) 06/06/23 01:07 Magnesium 2.4 mg/dL (1.6-2.4) 06/06/23 01:07 Total Bilirubin 2.0 mg/dL (0.2-1.0) H 06/06/23 01:07 AST 40 U/L (15-37) H 06/06/23 01:07 ALT 25 U/L (13-56) 06/06/23 01:07 Alkaline Phosphatase 133 U/L (45-117) H 06/06/23 01:07 Lipase 42 U/L (13-75) 06/06/23 01:07 <Jossy Tolliver - Last Filed: 06/06/23 16:23> Vital Signs/Physical Exam: Temp Pulse Resp BP Pulse Ox 97.6 F 88 18 148/72 H 98 06/06/23 05:26 06/06/23 05:26 06/06/23 05:26 06/06/23 05:26 06/06/23 05:26 Laboratory Data at Discharge: WBC 3.50 thou/uL (4.3-10.9) L 06/06/23 01:07 Hgb 9.6 g/dL (12.0-15.0) L 06/06/23 01:07 Hct 30.2 % (36.0-45.0) L 06/06/23 01:07 Plt Count 101 thou/uL (152-406) L 06/06/23 01:07 PT 16.5 SECONDS (9.5-12.5) H 06/06/23 01:07 INR 1.50 06/06/23 01:07 Sodium 138 mEq/L (136-145) 06/06/23 01:07 Potassium 3.8 mEq/L (3.5-5.1) 06/06/23 01:07 BUN 15 mg/dL (7-18) 06/06/23 01:07 Creatinine 1.05 mg/dL (0.55-1.02) H 06/06/23 01:07 Glucose 89 mg/dL (74-106) 06/06/23 01:07 Magnesium 2.4 mg/dL (1.6-2.4) 06/06/23 01:07 Total Bilirubin 2.0 mg/dL (0.2-1.0) H 06/06/23 01:07 AST 40 U/L (15-37) H 06/06/23 01:07 ALT 25 U/L (13-56) 06/06/23 01:07 Alkaline Phosphatase 133 U/L (45-117) H 06/06/23 01:07 Lipase 42 U/L (13-75) 06/06/23 01:07 <renee hartley - Last Filed: 06/06/23 16:55> Time spent managing pt's care (in minutes): 90 <Jossy Tolliver - Last Filed: 06/06/23 16:23> <renee hartley - Last Filed: 06/06/23 16:55> Home Medications: ondansetron HCL [Zofran] 4 mg PO Q8H PRN 04/06/18 Melatonin/Pyridoxine [Melatonin 5 mg Tablet] 10 mg PO BEDTIME 09/10/18 Pyridoxine [Vitamin B-6*] 50 mg PO BID 09/10/18 Ferrous Sulfate [Iron] 325 mg PO BID #60 tablet 09/27/18 Folic Acid 1 mg PO DAILY #30 tablet 09/27/18 Pantoprazole [Protonix Tab*] 40 mg PO BIDAC #60 tab 09/27/18 Rifaximin [Xifaxan] 550 mg PO BID #60 tablet 09/27/18 Thiamine HCl [Vitamin B-1*] 100 mg PO DAILY #30 tablet 09/27/18 Lactulose [Cephulac*] 30 ml PO TID 02/10/19 Midodrine HCl [Proamatine*] 5 mg PO BID 02/10/19 Potassium 1 tab PO DAILY 02/10/19 Spironolactone [Aldactone*] 50 mg PO BID 02/10/19 Followup: NONE,NONE [Primary Care Provider] -
[2023-06-06] MEDS ORDERED: ATORVASTATIN 40 MG TAB PO SCH (21:00)
[2023-06-06] MEDS ORDERED: PYRIDOXINE PO SCH (21:00)
[2023-06-06] MEDS ORDERED: MELATONIN PO SCH (21:00)
== END 2023-06-06 10:13 | disposition left against medical advice (07) | DRG 280 ==
LOC: ER 00:43 → ERHOLD 05:29
PROVIDERS: ADMIT Family Medicine; ATTEND Internal Medicine
DX: I21.4 Non-ST elevation (NSTEMI) myocardial infarction (principal); I50.43 Acute on chronic combined systolic (congestive) and diastolic (congestive) heart failure; K76.6 Portal hypertension; I11.0 Hypertensive heart disease with heart failure; D64.9 Anemia, unspecified; E78.5 Hyperlipidemia, unspecified; D69.59 Other secondary thrombocytopenia; F41.9 Anxiety disorder, unspecified; K21.9 Gastro-esophageal reflux disease without esophagitis; K70.31 Alcoholic cirrhosis of liver with ascites; F17.210 Nicotine dependence, cigarettes, uncomplicated; Z53.29 Procedure and treatment not carried out because of patient's decision for other reasons; Z28.310 Unvaccinated for COVID-19; Z79.899 Other long term (current) drug therapy
CPT/HCPCS: 36415; 71045; 71275; 80048; 80076; 81001; 82140; 83690; 83735; 83880; 84439; 84443; 84484; 85025; 85379; 85610; 87077; 87086; 87088; 87186; 93005; 93970; 96374; 96375; 99285; J1940; J7030; Q9967

== ENCOUNTER 2023-06-27 07:59 | Inpatient (IN) | payer OTHER ==
--- OUTSIDE RECORDS SUMMARY | 2023-06-27 08:16 | XMS REPORT | Continuity of Care Document ---
:1970 Author Organization [facility] t Address [address] [place] [address] Care Team Providers Name Role Phone Yandy BULLOCK, Alison Primary Care Physician Daria HARRIS, Darya Velasquez Attending Clinician MARIEL GREY Attending Clinician Unavailable Lucina SALDANA K Nury Attending Clinician Mariel Grey DO Attending Clinician Lopez RN, Bela Lan Attending Clinician Ken BULLOCK, Matty Osorio Attending Clinician Nafisa Lopez LVN Attending Clinician Mar Sands Attending Clinician Unavailable Doctor Unassigned, [place] Attending Clinician Unavailable David HARRIS, Milagros Angelo Attending Clinician Unavailable Nely BULLOCK, Stefany Watson Attending Clinician Maday Hernandez MD Attending Clinician MATTY WELCH Attending Clinician Unavailable Kathy BULLOCK, Afaq Attending Clinician [email or web address] Attending Clinician Unavailable JANETTE HERNANDEZ MD Attending Clinician HUGO BOOKER Attending Clinician TAMMY ZAMBRANOEDTRAVIS PETERSON Attending Clinician Unavail able CLEVE ALCOCER Attending Clinician Unavailable NICK MCKENZIE Attending Clinician Unavailable RAMON ARIAS Attending Clinician Unavailable MARIEL GREY Admitting Clinician Unavailable Mariel Grey DO Admitting Clinician Maday Hernandez MD Admitting Clinician MADAY HERNANDEZ Admitting Clinician Unavailable [email or web address]_R Admitting Clinician Unavailable KENYA, HUGO-JARRED KOENIG-PARISMED Admitting Clinician Unavail able NEAL WHEELER Admitting Clinician Unavailable NICK MCKENZIE Admitting Clinician Unavailable Payers Payer Name Policy Type Policy Effective Date Expiration Date Sour ce Number MEDICAID NA [place] [id number] [facility] MEDICAID NA [facility] JAGDEEP CARE [facility] Problems Condition Condition Condition Status Onset Resolution Last Treating Co mments Source Name Details Category Date Date Treatment Clinician Date Ascites Ascites Disease Active 2022-08 Univers due to due to 1-12 [place] 00 [facility] ZUNILDA (acute ZUNILDA (acute Disease Active U nivers kidney kidney 8-20 ity of injury) injury) 00:00: [address] Acquired Acquired Disease Active Unive rs pancytopen pancytopen 8-20 it y of ia ia 00:00: [address] Asymptomat Asymptomat Disease Active U nivers ic ic 8-20 [place] bacteri[place] bacteriuri [place] [address] [place] [address] Branch Enterococc Enterococc Disease Active U nivers al al 8-18 it[place] of bacteremia [place] [facility] Infected Infected Disease Active Unive rs hernioplas hernioplas 8-18 it y of ty mesh ty mesh 00:00: [place] 00 [facility] Branch Decompensa Decompensa Disease Active U nivers jean claude jean claude 8-15 ity of hepatic hepatic 00:00: [place] cirrhosis cirrhosis 00 [facility] Branch Acute Acute Disease Active Univers systolic systolic 8-15 ity of heart heart 00:00: [place] failure failure 00 [facility] Branch Cirrhosis Cirrhosis Disease [facility] Bleeding [facility] 00 [place] Anemia Anemia Disease [facility] Medical 00 [place] Generalize Generalize Disease Active 2017-08 M ethodi [...] HI [facility] 7[facility]10 [facility] 00:[facility] Medical 00 Center Melena Melena Disease [facility] Center Acute Acute Disease Active [facility] hepatic hepatic 7[facility]09 [facility] encephalop encephalop 00:00: Me dical athy athy 00 Center Acute Acute Disease Active [facility] blood loss blood loss 02-10 kes anemia anemia 00:00: [address] Acute Acute Disease Active [facility] upper GI upper GI 02-10 kes bleed bleed 00:00: [address] Acute Acute Disease Active [facility] renal renal 02-10 [facility] failure failure 00:00: Medical (ARF) (ARF) Center Alcoholic Alcoholic Disease Recurre [facility] I St cirrhosis cirrhosis nce 11-27 Assessmen L ukes of liver of liver 00:00: t & Plan: Med ical with with [address] [place] [address] ascites ascites g of this note might be different from the original. Cirrhosis based on labs, clinical symptoms, and imaging. Portal Portal Disease Recurre [facility] hypertensi hypertensi ine 11-27 [facility] on on 00:00: t & Plan: Medical [address] [place] [address] g of this note might be different from the original. Portal hypertens ion is evidenced by gastric and esophagea l varices seen on EGD and CT scan 10/21/17 and splenomeg tara. Ascites Ascites Disease Active [facility] 11-27 [facility] 00:00: t & Plan: [address] g of this note might be different from the original. Last paracente sis on 10/28/17. Patient has required paracente sis every 1 to 1.5 weeks. Screening Screening Disease Active [facility] for for 11-27 [facility] malignant malignant 00:00: t & Plan: M edical neoplasm neoplasm [address] [facility] [address] g of this note might be [...] Disease Active C [facility] on on [facility] Liver Liver Disease Active [facility] disorder disorder [facility] Allergies, Adverse Reactions, Alerts Allergy Allergy Status Severity Reaction(s) Onset Inactive Treating Comm ents Source Name Type Date Date Clinician No Known DA Active [facility]ie 04-27 [place] 00:[facility] 00 [facility] NO KNOWN Drug Active Univers ALLERGIE Class [facility] Social History Social Habit Start Date Stop Date Quantity Comments Source Sexual orientation [facility] History of tobacco Passive smoker Un iversity of use [facility] Gender identity [facility] Tobacco use and 2023-06-16 2023-06-16 Former smokeless Uni versity of exposure 00:00:00 00:00:00 tobacco user [place] [facility] Tobacco Comment 2023-06-16 2023-06-16 4-5 cigarettes a Uni versity of 00:00:00 00:00:00 day and vapes [place] Medic va daily. Branch History of Social 2019-03-26 2019-03-[address] function 00:00:00 00:00:00 Hospital Alcohol intake 2018-12-06 2018-12-06 Current drinker JOSE Mcclendon 00:00:00 00:00:00 of [facility] Alcohol Comment 2018-08-04 2018-08-04 quit 2 months Method ist 00:00:00 00:00:00 Hospital Cigarettes smoked 2017-11-27 2017-11-27 JOSE Matos current (pack per 00:00:00 00:00:00 Medical Center day) - Reported Cigarette 2017-11-27 2017-11-27 JOSE Matos pack-years 00:00:00 00:00:00 Medical Center Sex [birth year] At [birth year] JOSE Santos vinicios 00:00:00 00:00:00 [facility] Smoking Status Start Date Stop Date Source Smokes tobacco daily 2023-06-16 00:00:00 [facility] Occasional tobacco smoker 2018-08-04 00:00:00 [facility] Medications Ordered Filled Start Stop Current Ordering Indication Dosage Frequency Signature Comments Components Source Medication Medication Date Date Medication? Clinician (SIG) Name Name foLIC acid 2022-08- Yes [id number] 1mg Take 1 Univers 1 mg tablet 08-21 [id number] tablet by i ty of 00:00: 05:59 mouth in [place] 00 :00 the [facility] for 30 days. foLIC acid 2022-08- Yes [id number] 1mg Take 1 Univers 1 mg tablet 08-21 [id number] tablet by i ty of 00:00: 05:59 mouth in [place] 00 :00 the [facility] for 30 days. foLIC acid 2022-08- Yes [id number] 1mg Take 1 Univers 1 mg tablet 08-21 [id number] tablet by i ty of 00:00: 05:59 mouth in [place] 00 :00 the [facility] for 30 days. foLIC acid 2022-08- Yes [id number] 1mg Take 1 Univers 1 mg tablet 08-21 [id number] tablet by i ty of 00:00: 05:59 mouth in [place] 00 :00 the [facility] for 30 days. foLIC acid 2022-08- Yes [id number] 1mg Take 1 Univers 1 mg tablet 08-21 [id number] tablet by i ty of 00:00: 05:59 mouth in [place] 00 :00 the [facility] morning [place] for 30 days. foLIC acid 2022-08- Yes [id number] 1mg Take 1 Univers 1 mg tablet 08-21 [id number] tablet by i ty of 00:00: 05:59 mouth in [place] 00 :00 the [facility] morning [place] for 30 days. foLIC acid 2022-08- Yes [id number] 1mg Take 1 Univers 1 mg tablet 08-21 [id number] tablet by i ty of 00:00: 05:59 mouth in [place] 00 :00 the [facility] morning [place] for 30 days. foLIC acid 2022-08- Yes [id number] 1mg Take 1 Univers 1 mg tablet 08-21 [id number] tablet by i ty of 00:00: 05:59 mouth in [place] 00 :00 the [facility] morning [place] for 30 days. fluconazole 2022-08- Yes [id number] 200mg Take 1 Univers 200 mg -21 06- 15917 tablet by ity of tablet 00:00: 05:59 mouth in [place] 00 :00 [facility] morning [place] for 2 days. fluconazole 2022-08- Yes [id number] 200mg Take 1 Univers 200 mg 1-17 -20 [id number] tablet by ity of tablet 00:00: 05:59 mouth in [place] 00 :00 the [facility] for 2 days. fluconazole 2022-08- Yes [id number] 200mg Take 1 Univers 200 mg 1-17 -20 [id number] tablet by ity of tablet 00:00: 05:59 mouth in [place] 00 :00 the [facility] for 2 days. fluconazole 2022-08- Yes [id number] 200mg Take 1 Univers 200 mg 1-17 - 87892 tablet by ity of tablet 00:00: 05:59 mouth in [place] 00 :00 the [facility] for 2 days. fluconazole 2022-08- Yes [id number] 200mg Take 1 Univers 200 mg 1-17 - [id number] tablet by ity of tablet 00:00: 05:59 mouth in [place] 00 :00 the [facility] for 2 days. fluconazole 2022-08- No [id number] 200mg Take 1 Univers 200 mg 1-17 - 73566 tablet by ity of tablet 00:00: 05:59 mouth in [place] 00 :00 the [facility] for 2 days. fluconazole 2022-08- No [id number] 200mg Take 1 Univers 200 mg 1-17 - 31602 tablet by ity of tablet 00:00: 05:59 mouth in [place] 00 :00 the [facility] for 2 days. fluconazole 2022-08- No [id number] 200mg Take 1 Univers 200 mg 1-17 -20 [id number] tablet by ity of tablet 00:00: 05:59 mouth in [place] 00 :00 the [facility] for 2 days. fluconazole 2022-08- No [id number] 200mg Take 1 Univers 200 mg 1-17 -16 [id number] tablet by ity of tablet 00:00: 00:00 mouth in [place] 00 :00 the [facility] for 2 days. foLIC acid 2022-08- No [id number] 1mg Take 1 Univers 1 mg tablet -21 06- 53747 tablet by i ty of 00:00: 00:00 mouth in [place] 00 :00 the Medical morning Branch for 30 days. zolpidem 2022-08 Yes 10mg 10 mg, Univers (AMBIEN) -16 Oral, ity of tablet 10 02:18: QHSPRN, [place] mg 05 Starting Medical on Sat Branch 06/19/23 at 2018, Until Discontinu ed, Routine, Insomnia levoFLOXaci 2022-08- Yes [id number] 750mg Take 1 Univers n 750 mg 08-20 [id number] tablet by ity of tablet 00:00: 05:59 mouth [place] 00 :00 every 24 Medical ([facility] ur) hours for 2 days. levoFLOXaci 2022-08- Yes [id number] 750mg Take 1 Univers n 750 mg 08-20 [id number] tablet by ity of tablet 00:00: 05:59 mouth [place] 00 :00 every 24 Medical ([facility] Branch ur) hours for 2 days. levoFLOXaci 2022-08- Yes [id number] 750mg Take 1 Univers n 750 mg 08-20 [id number] tablet by ity of tablet 00:00: 05:59 mouth [place] 00 :00 every 24 Medical ([facility] Branch ur) hours for 2 days. levoFLOXaci 2022-08- Yes [id number] 750mg Take 1 Univers n 750 mg 08-20 [id number] tablet by ity of tablet 00:00: 05:59 mouth [place] 00 :00 every 24 Medical ([facility] ur) hours for 2 days. levoFLOXaci 2022-08- Yes [id number] 750mg Take 1 Univers n 750 mg 08-20 [id number] tablet by ity of tablet 00:00: 05:59 mouth [place] 00 :00 every 24 Medical ([facility] ur) hours for 2 days. levoFLOXaci 2022-08- No [id number] 750mg Take 1 Univers n 750 mg 08-20 [id number] tablet by ity of tablet 00:00: 05:59 mouth [place] 00 :00 every 24 Medical ([facility] ur) hours for 2 days. levoFLOXaci 2022-08- No [id number] 750mg Take 1 Univers n 750 mg 08-20 [id number] tablet by ity of tablet 00:00: 05:59 mouth [place] 00 :00 every 24 Medical ([facility] ur) hours for 2 days. levoFLOXaci 2022-08 No [id number] 750mg Take 1 Univers n 750 mg 08-20 tablet by ity of tablet 00:00: 05:59 mouth [place] 00 :00 every 24 Medical ([facility] ur) hours for 2 days. levoFLOXaci 2022-08 No [id number] 750mg Take 1 Univers n 750 mg 08-20 tablet by ity of tablet 00:00: 00:00 mouth [place] 00 :00 every 24 Medical ([facility] Branch ur) hours for 2 days. KCL 2022-08 No 40meq 40 mEq, Univers (KLOR-CON 08-18 Oral, ity of M20) tablet 23:24: 00:42 ONCE, 1 [place] 40 [place]Eq 00 :00 dose, On [facility] 06/18/23 at 1730, Routine KCL 2022-08 No 40meq 40 mEq, Univers (KLOR-CON 08-18 Oral, ity of M20) tablet 01:15: 03:18 ONCE, 1 [place] 40 mEq 00 :00 dose, [facility]23 at 1915, Routine midodrine 2022-08 Yes 5mg 5 mg, Univers (PROAMATINE 08-17 Oral, ity of ) tablet 5 23:21: TIDPRN, [place] mg 52 Starting Medical on [facility] 06/17/23 at 1721, Until Discontinu ed, Routine, SBP <100 or DBP <60 KCL 2022-08 No 40meq 40 mEq, Univers (KLOR-CON 08-17 Oral, ity of M20) tablet 18:30: 18:15 ONCE, 1 [place] 40 mEq 00 :00 dose, On Medical [facility] 06/17/23 at 1230, Routine magnesium 2022-08- No 2g 2 g, IV Univ ers sulfate in 08-17 Piggyback, it y of water 2 18:15: 20:22 Administer Zac as gram/50 mL 00 :00 over 60 Medica l (4 %) Minutes, Branch infusion 2 ONCE, 1 g dose, On Sat06/17/23 at 1215, Routine cefTRIAXone 2022-08- Yes 1000mg 1,000 mg, Univers (ROCEPHIN) 08-1718 IV ity of 1,000 mg in 18:00: 17:59 Piggyback, [place] NaCl 0.9% 00 :00 Q24H ABX, Medic al (NS) 100 mL 5 doses, Bran ch MINI-BAG First dose (after last reorder) on Sat06/17/23 at 1200, Last dose on Sat06/21/23 at 1200, Administer over 30 Minutes, 100 mL
Reas on for Anti-Infec tive: Documented Infection< br>Documen jean claude Infection Site: Urine
D uration of Therapy: Other (see Comments) foLIC acid 2022-08 Yes 1mg 1 mg, Univer s (FOLATE) 08-17 Oral, ity of tablet 1 mg 15:00: DAILY[place] 00 First dose Medical on Sat06/17/23 at 0900, Until Discontinu ed, Routine spironolact 2022-08 Yes 50mg 50 mg, Univ ers one 08-17 Oral, ity of (ALDACTONE) 15:00: DAILY, [place] tablet 50 00 First dose Medi rob mg (after Branch last modificati on) on Sat06/17/23 at 0900, Until Discontinu ed, Routine metoprolol 2022-08 Yes 12.5mg 12.5 mg, U nivers succinate 08-17 Oral, ity of XL (TOPROL 15:00: DAILY, [place] XL) tablet 00 First dose Med ical 12.5 mg on Sat06/17/23 at 0900, Until Discontinu ed, Routine aspirin 2022-08 Yes 81mg 81 mg, Univers chewable 08-17 Oral, ity of tablet 81 15:00: DAILY, [place] mg 00 First dose Medical on Sat06/17/23 at 0900, Until Discontinu ed, Routine fluconazole 2022-08- Yes 200mg 200 mg, U nivers (DIFLUCAN) 08-17 Oral, ity of tablet 200 15:00: 14:59 DAILY, 7 [place] mg 00 :00 doses, Medical First dose Branch on Sat06/17/23 at 0900, Last dose on Sat06/23/23 at 0900, IVANA
Re ason for Anti-Infec tive: Documented Infection< br>Documen jean claude Infection Site: Urine
D uration of Therapy: 14 days morpHINE (2 2022-08 Yes 2mg 2 mg, Slow Univers mg/mL) 08-17 IV Push, ity of injection 2 05:17: Q4HPRN, [place] mg 29 Starting Medical on [facility] 06/16/23 at 2317, Until Discontinu ed, Routine, Pain (scale 7-10) proMETHazin 2022-08 No 25mg 25 mg, Uni vers e 08-17 Oral, ity of (PHENERGAN) 05:16: 23:24 Q6HPRN, [place] tablet 25 52 :55 Starting Medica l mg on [facility] 06/16/23 at 2316, Until 06/18/23 at 1724, Routine, Nausea and Vomiting (N/V) dextrose 50 2022-08 No 25mL 25 mL, Uni vers % in water 08-17 Slow IV ity o f (D50W) 05:00: 05:29 Push, [place] injection 00 :00 ONCE, 1 Medical 25 mL dose, On [facility] 06/16/23 at 2300, Routine traZODone 2022-08 Yes 50mg 50 mg, Univer s (DESYREL) 08-17 Oral, QHS, ity of tablet 50 04:30: First dose [place] mg 00 on [facility] 06/16/23 Branch at 2230, Until Discontinu ed, Routine albumin 2022-08 No 25g 25 g, IV Unive rs (ALBUMINAR 08-17 Infusion, ity of 25%) 25 % 03:15: 03:52 ONCE, 1 [place] injection 00 :00 dose, On Medica l 25 g [facility] 06/16/23 at 2115, 100 mL
Nina cation: NEPHROTIC SYNDROME (ACUTE, SEVERE PERIPHERAL OR PULMONARY EDEMA)
Comments: Short-term use of albumin in combinatio n with diuretic therapy when: serum albumin <2 g/dL and optimal diuretic therapy alone has failed thiamine 2022-08 No 100mg IV Univers (VITAMIN 08-17 Piggyback, ity of B1) 100 mg 03:15: 06:01 ONCE, 1 [place] NaCl 00 :00 dose, On Medical 0.9% (NS) [facility] piggyback 06/16/23 at 2115, 50 mL rosuvastati 2022-08 Yes 40mg 40 mg, Univ ers n (CRESTOR) 1-13 Oral, QHS, it y of tablet 40 03:00: First dose [place] mg 00 on [facility] 06/16/23 Branch at 2100, Until Discontinu ed, Routine bumetanide 2022-08 Yes 2mg 2 mg, Slow U nivers (BUMEX) 08-17 IV Push, ity of injection 2 02:30: BID AT [place] mg 00 0600 - Medical 1800, Branch First dose on [place] 06/16/23 at 2030, Until Discontinu ed, Routine midodrine 2022-08- No 5mg 5 mg, Univer s (PROAMATINE 08-17 Oral, TID, i ty of ) tablet 5 02:30: 19:29 First dose [place] mg 00 :10 (after Medical last Branch modificati on) on [place] 06/16/23 at 2030, Until Discontinu ed, Routine lactulose 2022-08 Yes 15mL 15 mL, Univer s (CEPHULAC) 08-17 Oral, TID, ity of solution 15 02:00: First dose [place] mL 00 on [facility] 06/16/23 Branch at 2000, Until Discontinu ed, Routine acetaminoph 2022-08- No 1{tbl} 1 tablet, Univers en-codeine 08-16 Oral, ity of (TYLENOL 20:17: 05:17 Q6HPRN, [place] #3) 300-30 39 :43 Starting Medic al mg tablet 1 on [facility] tablet 06/16/23 at 1417, Until [place] 06/16/23 at 2317, Routine, Pain (scale 4-6) acetaminoph 2022-08 Yes 650mg 650 mg, Un javier en -12 Oral, ity of (TYLENOL) 20:17: Q8HPRN, [place] tablet 650 31 Starting Medic al mg on [facility] 06/16/23 at 1417, Until Discontinu ed, Routine, Pain (scale 1-3) cefTRIAXone 2022-08 No 1000mg 1,000 mg, Univers (ROCEPHIN) 08-16 IV ity of 1,000 mg in 18:15: 19:20 Piggyback, [place] NaCl 0.9% 00 :00 ONCE, 1 Medical (NS) 100 mL dose, On [facility] MINI-BAG [place] 06/16/23 at 1215, Administer over 30 Minutes, 100 mL
Reas on for Anti-Infec tive: Documented Infection< br>Documen jean claude Infection Site: Urine
D uration of Therapy: Other (see Comments) iopamidol 2022-08- No [id number] 80mL 80 mL, Univers (ISOVUE 08-16 Intravenou ity o f 370-500 mL) 17:19: 17:19 s, ONCE, 1 [place] injection 00 :00 dose, On Medica l 80 mL [facility] 06/16/23 at 1130, Routine furosemide 2022-08 No 40mg 40 mg, IV U nivers (LASIX) 08-16 Push, ity of injection 16:45: 16:50 ONCE, 1 [place] 40 mg 00 :00 dose, On [facility] 06/16/23 at 1045, IVANA lactulose No 30mL 30 mL, Unive rs (CEPHULAC) 03-28 Oral, ity of solution 30 13:15: 12:44 ONCE, 1 [place] mL 00 :00 dose, On [facility] 03/28/23 at 0815, Routine spironolact Yes 50mg 50 mg, Univ ers one 03-28 Oral, BID, ity of (ALDACTONE) 01:00: First dose [place] tablet 50 00 (after Medical mg last Branch modificati on) on Sat03/27/23 at 2000, Until Discontinu ed, Routine bumetanide Yes 2mg 2 mg, Univer s (BUMEX) 03-28 Oral, BID, ity of tablet 2 mg 01:00: First dose [place] 00 (after Medical last Branch modificati on) on Sat03/27/23 at 2000, Until Discontinu ed, Routine aspirin 81 Yes [id number] 81mg Take 1 U nivers mg chewable 8-24 tablet by ity of tablet 00:00: mouth in [place] 00 the Medical morning. Branch metoprolol 3-0 Yes [id number] 12.5mg Take 0.5 Univers succinate 8-24 tablets by ity of XL 25 mg 24 00:00: mouth in [place] hr tablet 00 the Medical morning. Branch aspirin 81 2022-0 Yes [id number] 81mg Take 1 U nivers mg chewable 8-24 tablet by ity of tablet 00:00: mouth in [place] 00 the Medical morning. Branch metoprolol 2022-0 Yes [id number] 12.5mg Take 0.5 Univers succinate 8-24 tablets by ity of XL 25 mg 24 00:00: mouth in [place] hr tablet 00 the Medical morning. Branch aspirin 81 2022-0 Yes [id number] 81mg Take 1 U nivers mg chewable 8-24 tablet by ity of tablet 00:00: mouth in [place] 00 the Medical morning. Branch metoprolol 2022-0 Yes [id number] 12.5mg Take 0.5 Univers succinate 8-24 tablets by ity of XL 25 mg 24 00:00: mouth in [place] hr tablet 00 the Medical morning. Branch aspirin 81 2022-0 Yes [id number] 81mg Take 1 U nivers mg chewable 8-24 tablet by ity of tablet 00:00: mouth in [place] 00 the Medical morning. Branch metoprolol 2022-0 Yes [id number] 12.5mg Take 0.5 Univers succinate 8-24 tablets by ity of XL 25 mg 24 00:00: mouth in [place] hr tablet 00 the Medical morning. Branch aspirin 81 2022-0 Yes [id number] 81mg Take 1 U nivers mg chewable 8-24 tablet by ity of tablet 00:00: mouth in [place] 00 the Medical morning. Branch metoprolol 2022-0 Yes [id number] 12.5mg Take 0.5 Univers succinate 8-24 tablets by ity of XL 25 mg 24 00:00: mouth in [place] hr tablet 00 the Medical morning. Branch aspirin 81 2022-0 Yes [id number] 81mg Take 1 U nivers mg chewable 8-24 tablet by ity of tablet 00:00: mouth in [place] 00 the Medical morning. Branch metoprolol 2022-0 Yes [id number] 12.5mg Take 0.5 Univers succinate 8-24 tablets by ity of XL 25 mg 24 00:00: mouth in [place] hr tablet 00 the Medical morning. Branch aspirin 81 2022-0 Yes [id number] 81mg Take 1 U nivers mg chewable 8-24 tablet by ity of tablet 00:00: mouth in [place] 00 the Medical morning. Branch aspirin 81 2022-0 Yes [id number] 81mg Take 1 U nivers mg chewable 8-24 tablet by ity of tablet 00:00: mouth in [place] 00 the Medical morning. Branch metoprolol 2022-0 Yes [id number] 12.5mg Take 0.5 Univers succinate 8-24 tablets by ity of XL 25 mg 24 00:00: mouth in [place] hr tablet 00 the Medical morning. Branch aspirin 81 2022-0 Yes [id number] 81mg Take 1 U nivers mg chewable 8-24 tablet by ity of tablet 00:00: mouth in [place] 00 the Medical morning. Branch metoprolol 2022-0 Yes [id number] 12.5mg Take 0.5 Univers succinate 8-24 tablets by ity of XL 25 mg 24 00:00: mouth in [place] hr tablet 00 the Medical morning. Branch metoprolol 2022-0 Yes [id number] 12.5mg Take 0.5 Univers succinate 8-24 tablets by ity of XL 25 mg 24 00:00: mouth in [place] hr tablet 00 the Medical morning. Branch aspirin 81 2022-0 Yes [id number] 81mg Take 1 U nivers mg chewable 8-24 tablet by ity of tablet 00:00: mouth in [place] 00 the Medical morning. Branch metoprolol 2022-0 Yes [id number] 12.5mg Take 0.5 Univers succinate 8-24 tablets by ity of XL 25 mg 24 00:00: mouth in [place] hr tablet 00 the Medical morning. Branch aspirin 81 2022-0 Yes [id number] 81mg Take 1 U nivers mg chewable 8-24 tablet by ity of tablet 00:00: mouth in [place] 00 the Medical morning. Branch metoprolol 3-0 Yes [id number] 12.5mg Take 0.5 Univers succinate 8-24 tablets by ity of XL 25 mg 24 00:00: mouth in [place] hr tablet 00 the Medical morning. Branch aspirin 81 2022-0 Yes [id number] 81mg Take 1 U nivers mg chewable 8-24 tablet by ity of tablet 00:00: mouth in [place] 00 the Medical morning. Branch metoprolol 2022-0 Yes [id number] 12.5mg Take 0.5 Univers succinate 8-24 tablets by ity of XL 25 mg 24 00:00: mouth in [place] hr tablet 00 the Medical morning. Branch aspirin 81 2022-0 Yes [id number] 81mg Take 1 U nivers mg chewable 8-24 tablet by ity of tablet 00:00: mouth in [place] 00 the Medical morning. Branch metoprolol 2022-0 Yes [id number] 12.5mg Take 0.5 Univers succinate 8-24 tablets by ity of XL 25 mg 24 00:00: mouth in [place] hr tablet 00 the Medical morning. Branch aspirin 81 2022-0 Yes [id number] 81mg Take 1 U nivers mg chewable 8-24 tablet by ity of tablet 00:00: mouth in [place] 00 the Medical morning. Branch metoprolol 2022-0 Yes [id number] 12.5mg Take 0.5 Univers succinate 8-24 tablets by ity of XL 25 mg 24 00:00: mouth in [place] hr tablet 00 the Medical morning. Branch aspirin 81 2022-0 Yes [id number] 81mg Take 1 [facility] n[facility] mg chewable 8-24 tablet by ity of tablet 00:00: mouth in [place] 00 the Medical morning. Branch metoprolol 2022-0 Yes [id number] 12.5mg Take 0.5 [facility] succinate 8-24 tablets by ity of XL 25 mg 24 00:00: mouth in [place] hr tablet 00 the Medical morning. Branch aspirin 81 2022-0 Yes [id number] 81mg Take 1 [facility] nivers mg chewable 8-24 tablet by ity of tablet 00:00: mouth in [place] 00 the Medical morning. Branch metoprolol 2022-0 Yes [id number] 12.5mg Take 0.5 [facility] succinate 8-24 tablets by ity of XL 25 mg 24 00:00: mouth in [place] hr tablet 00 the Medical morning. Branch aspirin 81 2022-0 Yes [id number] 81mg Take 1 [facility] nivers mg chewable 8-24 tablet by ity of tablet 00:00: mouth in [place] 00 the Medical morning. Branch metoprolol 2022-0 Yes [id number] 12.5mg Take 0.5 [facility] succinate 8-24 tablets by ity of XL 25 mg 24 00:00: mouth in [place] hr tablet 00 the Medical morning. Branch aspirin 81 2022-0 Yes [id number] 81mg Take 1 [facility] n[facility] mg chewable 8-24 tablet by ity of tablet 00:00: mouth in [place] 00 the morning. Branch metoprolol 2022-0 Yes [id number] 12.5mg Take 0.5 [facility] succinate 8-24 tablets by ity of XL 25 mg 24 00:00: mouth in [place] hr tablet 00 the morning. Branch aspirin 81 2022-0 Yes [id number] 81mg Take 1 [facility] n[facility] mg chewable 8-24 tablet by ity of tablet 00:00: mouth in [place] 00 the morning. Branch metoprolol 2022-0 Yes [id number] 12.5mg Take 0.5 [facility] succinate 8-24 tablets by ity of XL 25 mg 24 00:00: mouth in [place] hr tablet 00 the morning. Branch amoxicillin 2022-0 2022- No [id number] 1000mg Take 2 [facility] 500 mg 8-24 09-22 capsules ity of capsule 00:00: 04:59 by mouth [place] 00 :00 in the Medical morning Branch and 2 capsules at noon and 2 capsules in the evening. Do all this for 28 days. amoxicillin 2022-0 2022- No [id number] 1000mg Take 2 [facility] 500 mg 8-24 09-22 capsules ity of capsule 00:00: 04:59 by mouth [place] 00 :00 in the Medical morning Branch and 2 capsules at noon and 2 capsules in the evening. Do all this for 28 days. amoxicillin 2022-0 2022- No [id number] 1000mg Take 2 [facility] 500 mg 8-24 09-22 capsules ity of capsule 00:00: 04:59 by mouth [place] 00 :00 in the Medical morning Branch and 2 capsules at noon and 2 capsules in the evening. Do all this for 28 days. amoxicillin 2022-0 2022- No [id number] 1000mg Take 2 [facility] 500 mg 8-24 09-22 capsules ity of capsule 00:00: 04:59 by mouth [place] 00 :00 in the Medical morning Branch and 2 capsules at noon and 2 capsules in the evening. Do all this for 28 days. amoxicillin 2023-0 2023- No [id number] 1000mg Take 2 [facility] 500 mg 8-24 09-22 capsules ity of capsule 00:00: 04:59 by mouth [place] 00 :00 in the Medical morning Branch and 2 capsules at noon and 2 capsules in the evening. Do all this for 28 days. amoxicillin 3-0 2023- No [id number] 1000mg Take 2 [facility] 500 mg 8-24 09-22 capsules ity of capsule 00:00: 04:59 by mouth [place] 00 :00 in the Medical morning Branch and 2 capsules at noon and 2 capsules in the evening. Do all this for 28 days. amoxicillin 2023-0 2023- No [id number] 1000mg Take 2 [facility] 500 mg 8-24 09-22 capsules ity of capsule 00:00: 04:59 by mouth [place] 00 :00 in the Medical morning Branch and 2 capsules at noon and 2 capsules in the evening. Do all this for 28 days. amoxicillin 3-0 3- No [id number] 1000mg Take 2 [facility] 500 mg 8-24 09-22 capsules ity of capsule 00:00: 04:59 by mouth [place] 00 :00 in the Medical morning Branch and 2 capsules at noon and 2 capsules in the evening. Do all this for 28 days. amoxicillin 3-0 2023- No [id number] 1000mg Take 2 [facility] 500 mg 8-24 09-22 capsules ity of capsule 00:00: 04:59 by mouth [place] 00 :00 in the Medical morning Branch and 2 capsules at noon and 2 capsules in the evening. Do all this for 28 days. amoxicillin 2023-0 2023- No [id number] 1000mg Take 2 [facility] 500 mg 8-24 09-22 capsules ity of capsule 00:00: 04:59 by mouth [place] 00 :00 in the Medical morning Branch and 2 capsules at noon and 2 capsules in the evening. Do all this for 28 days. amoxicillin 2023-0 2023- No [id number] 1000mg Take 2 [facility] 500 mg 8-24 09-22 capsules ity of capsule 00:00: 04:59 by mouth [place] 00 :00 in the Medical morning Branch and 2 capsules at noon and 2 capsules in the evening. Do all this for 28 days. bumetanide 2023-0 2022- No 1mg 1 mg, [facility] rs (BUMEX) 03-27 Oral, ity of tablet 1 mg 15:00: 14:27 ONCE, 1 [place] 00 :00 dose, On Sat03/27/23 at 1000, Routine spironolact 2022-0 Yes 50mg 50 mg, Univ ers one 03-27 Oral, ity of (ALDACTONE) 14:00: DAILY, [place] tablet 50 00 First dose Medi rob mg (after Branch last modificati on) on Sat03/27/23 at 0900, Until Discontinu ed, Routine spironolact 0 2022- No 50mg 50 mg, Uni vers one 03-27 Oral, ity of (ALDACTONE) 14:00: 14:02 DAILY, [place] tablet 50 00 :51 First dose Medi rob mg (after Branch last modificati on) on Sat03/27/23 at 0900, Until Discontinu ed, Routine bumetanide 0 Yes 1mg 1 mg, Univer s (BUMEX) 03-27 Oral, BID, ity of tablet 1 mg 01:00: First dose [place] 00 (after Medical last Branch modificati on) on Sat03/26/23 at 2000, Until Discontinu ed, Routine bumetanide 0 2022- No 1mg 1 mg, [facility] rs (BUMEX) 03-27 Oral, BID, ity o f tablet 1 mg 01:00: 14:02 First dose [place] 00 :51 (after Medical last Branch modificati on) on Sat03/26/23 at 1999, Until Discontinu ed, Routine bumetanide 2022-0 Yes [id number] 2mg Take 1 [facility] n[facility] 2 mg tablet -23 tablet by ity of 00:00: mouth in [place] the morning Branch and 1 tablet in the evening. midodrine 5 2022-0 Yes [id number] 5mg Take 1 [facility] mg tablet -23 tablet by ity o f 00:00: mouth in [place] 00 the morning Branch and 1 tablet at noon and 1 tablet in the evening. rosuvastati 2022-0 Yes [id number] 40mg Take 1 [facility] n 40 mg 8-23 tablet by ity of tablet 00:00: mouth at [place] bedtime. Medical Branch spironolact 3-0 Yes [id number] 50mg Take 1 [facility] one 50 mg 8-23 tablet by ity o f tablet 00:00: mouth in [place] the Medical morning Branch and 1 tablet in the evening. lactulose 3-0 Yes [id number] 30mL Take 30 mL [facility] 10 gram/15 8-23 by mouth ity o f mL solution 00:00: in the morning. Medical Branch bumetanide 3-0 Yes [id number] 2mg Take 1 [facility] 2 mg tablet 8-23 tablet by ity of 00:00: mouth in [place] the Medical morning Branch and 1 tablet in the evening. midodrine 5 2022-0 Yes [id number] 5mg Take 1 [facility] mg tablet 8-23 tablet by ity o f 00:00: mouth in [place] the Medical morning Branch and 1 tablet at noon and 1 tablet in the evening. rosuvastati 2022-0 Yes [id number] 40mg Take 1 [facility] n 40 mg 8-23 tablet by ity of tablet 00:00: mouth at [place] bedtime. Medical Branch spironolact 2022-0 Yes [id number] 50mg Take 1 [facility] one 50 mg 8-23 tablet by ity o f tablet 00:00: mouth in [place] the Medical morning Branch and 1 tablet in the evening. lactulose 3-0 Yes [id number] 30mL Take 30 mL [facility] 10 gram/15 8-23 by mouth ity o f mL solution 00:00: in the morning. Medical Branch lactulose 3-0 Yes [id number] 30mL Take 30 mL [facility] 10 gram/15 8-23 by mouth ity o f mL solution 00:00: in the morning. Medical Branch bumetanide 3-0 Yes [id number] 2mg Take 1 [facility] 2 mg tablet 8-23 tablet by ity of 00:00: mouth in [place] the Medical morning Branch and 1 tablet in the evening. midodrine 5 2022-0 Yes [id number] 5mg Take 1 [facility] mg tablet 8-23 tablet by ity o f 00:00: mouth in [place] the Medical morning Branch and 1 tablet at noon and 1 tablet in the evening. rosuvastati 3-0 Yes [id number] 40mg Take 1 [facility] n 40 mg 8-23 tablet by ity of tablet 00:00: mouth at [place] 00 bedtime. Medical Branch spironolact 2022-0 Yes [id number] 50mg Take 1 [facility] one 50 mg 8-23 tablet by ity o f tablet 00:00: mouth in [place] 00 the Medical morning Branch and 1 tablet in the evening. lactulose 3-0 Yes [id number] 30mL Take 30 mL [facility] 10 gram/15 8-23 by mouth ity o f mL solution 00:00: in the morning. Medical Branch bumetanide 2022-0 Yes [id number] 2mg Take 1 [facility] 2 mg tablet 8-23 tablet by ity of 00:00: mouth in [place] 00 the Medical morning Branch and 1 tablet in the evening. midodrine 5 2022-0 Yes [id number] 5mg Take 1 [facility] mg tablet 8-23 tablet by ity o f 00:00: mouth in [place] the Medical morning Branch and 1 tablet at noon and 1 tablet in the evening. rosuvastati 2022-0 Yes [id number] 40mg Take 1 [facility] n 40 mg 8-23 tablet by ity of tablet 00:00: mouth at [place] 00 bedtime. Medical Branch spironolact 2022-0 Yes [id number] 50mg Take 1 [facility] one 50 mg 8-23 tablet by ity o f tablet 00:00: mouth in [place] the Medical morning Branch and 1 tablet in the evening. lactulose 2022-0 Yes [id number] 30mL Take 30 mL [facility] 10 gram/15 8-23 by mouth ity o f mL solution 00:00: in the morning. Medical Branch bumetanide 2022-0 Yes [id number] 2mg Take 1 [facility] 2 mg tablet 8-23 tablet by ity of 00:00: mouth in [place] 00 the Medical morning Branch and 1 tablet in the evening. midodrine 5 2022-0 Yes [id number] 5mg Take 1 [facility] mg tablet 8-23 tablet by ity o f 00:00: mouth in [place] [address] the Medical morning Branch and 1 tablet at noon and 1 tablet in the evening. rosuvastati 3-0 Yes [id number] 40mg Take 1 [facility] n 40 mg 8-23 tablet by ity of tablet 00:00: mouth at [place] [address] bedtime. Medical Branch spironolact 2022-0 Yes [id number] 50mg Take 1 [facility] one 50 mg 8-23 tablet by ity o f tablet 00:00: mouth in [place] the Medical morning Branch and 1 tablet in the evening. lactulose 2022-0 Yes [id number] 30mL Take 30 mL [facility] 10 gram/15 8-23 by mouth ity o f mL solution 00:00: in the morning. Medical Branch bumetanide 2022-0 Yes [id number] 2mg Take 1 [facility] 2 mg tablet 8-23 tablet by ity of 00:00: mouth in [place] the Medical morning Branch and 1 tablet in the evening. midodrine 5 2022-0 Yes [id number] 5mg Take 1 [facility] mg tablet 8-23 tablet by ity o f 00:00: mouth in [place] the Medical morning Branch and 1 tablet at noon and 1 tablet in the evening. rosuvastati 2022-0 Yes [id number] 40mg Take 1 [facility] n 40 mg 8-23 tablet by ity of tablet 00:00: mouth at [place] [address] bedtime. Medical Branch spironolact 2022-0 Yes [id number] 50mg Take 1 [facility] one 50 mg 8-23 tablet by ity o f tablet 00:00: mouth in [place] the Medical morning Branch and 1 tablet in the evening. lactulose 2022-0 Yes [id number] 30mL Take 30 mL [facility] 10 gram/15 8-23 by mouth ity o f mL solution 00:00: in the morning. Medical Branch bumetanide 2022-0 Yes [id number] 2mg Take 1 [facility] n[facility] 2 mg tablet 8-23 tablet by ity of 00:00: mouth in [place] the Medical morning Branch and 1 tablet in the evening. midodrine 5 2022-0 Yes [id number] 5mg Take 1 [facility] mg tablet 8-23 tablet by ity o f 00:00: mouth in [place] the Medical morning Branch and 1 tablet at noon and 1 tablet in the evening. rosuvastati 3-0 Yes [id number] 40mg Take 1 [facility] n 40 mg 8-23 tablet by ity of tablet 00:00: mouth at [place] [address] bedtime. Medical Branch bumetanide 2023-0 Yes [id number] 2mg Take 1 [facility] 2 mg tablet 8-23 tablet by ity of 00:00: mouth in [place] 00 the Medical morning Branch and 1 tablet in the evening. spironolact 3-0 Yes [id number] 50mg Take 1 [facility] one 50 mg 8-23 tablet by ity o f tablet 00:00: mouth in [place] 00 the Medical morning Branch and 1 tablet in the evening. lactulose 3-0 Yes [id number] 30mL Take 30 mL [facility] 10 gram/15 8-23 by mouth ity o f mL solution 00:00: in the morning. Medical Branch bumetanide 3-0 Yes [id number] 2mg Take 1 [facility] nivers 2 mg tablet 8-23 tablet by ity of 00:00: mouth in [place] the Medical morning Branch and 1 tablet in the evening. midodrine 5 2022-0 Yes [id number] 5mg Take 1 [facility] mg tablet 8-23 tablet by ity o f 00:00: mouth in [place] the Medical morning Branch and 1 tablet at noon and 1 tablet in the evening. rosuvastati 2022-0 Yes [id number] 40mg Take 1 [facility] n 40 mg 8-23 tablet by ity of tablet 00:00: mouth at [place] [address] bedtime. Medical Branch spironolact 2022-0 Yes [id number] 50mg Take 1 [facility] one 50 mg 8-23 tablet by ity o f tablet 00:00: mouth in [place] the Medical morning Branch and 1 tablet in the evening. lactulose 2022-0 Yes [id number] 30mL Take 30 mL [facility] 10 gram/15 8-23 by mouth ity o f mL solution 00:00: in the morning. Medical Branch midodrine 5 2022-0 Yes [id number] 5mg Take 1 [facility] mg tablet 8-23 tablet by ity o f 00:00: mouth in [place] 00 the Medical morning Branch and 1 tablet at noon and 1 tablet in the evening. bumetanide 3-0 Yes [id number] 2mg Take 1 [facility] nivers 2 mg tablet 8-23 tablet by ity of 00:00: mouth in [place] [address] the Medical morning Branch and 1 tablet in the evening. midodrine 5 2022-0 Yes [id number] 5mg Take 1 [facility] mg tablet 8-23 tablet by ity o f 00:00: mouth in [place] the Medical morning Branch and 1 tablet at noon and 1 tablet in the evening. rosuvastati 3-0 Yes [id number] 40mg Take 1 [facility] n 40 mg 8-23 tablet by ity of tablet 00:00: mouth at [place] [address] bedtime. Medical Branch spironolact 3-0 Yes [id number] 50mg Take 1 [facility] one 50 mg 8-23 tablet by ity o f tablet 00:00: mouth in [place] 00 the Medical morning Branch and 1 tablet in the evening. lactulose 3-0 Yes [id number] 30mL Take 30 mL [facility] 10 gram/15 8-23 by mouth ity o f mL solution 00:00: in the morning. Medical Branch rosuvastati 3-0 Yes [id number] 40mg Take 1 [facility] n 40 mg 8-23 tablet by ity of tablet 00:00: mouth at [place] [address] bedtime. Medical Branch bumetanide 2022-0 Yes [id number] 2mg Take 1 [facility] 2 mg tablet 8-23 tablet by ity of 00:00: mouth in [place] the Medical morning Branch and 1 tablet in the evening. midodrine 5 2022-0 Yes [id number] 5mg Take 1 [facility] mg tablet 8-23 tablet by ity o f 00:00: mouth in [place] the Medical morning Branch and 1 tablet at noon and 1 tablet in the evening. rosuvastati 3-0 Yes [id number] 40mg Take 1 [facility] n 40 mg 8-23 tablet by ity of tablet 00:00: mouth at [place] [address] bedtime. Medical Branch spironolact 3-0 Yes [id number] 50mg Take 1 [facility] one 50 mg 8-23 tablet by ity o f tablet 00:00: mouth in [place] the Medical morning Branch and 1 tablet in the evening. lactulose 3-0 Yes [id number] 30mL Take 30 mL [facility] 10 gram/15 8-23 by mouth ity o f mL solution 00:00: in the morning. Medical Branch spironolact 3-0 Yes [id number] 50mg Take 1 [facility] one 50 mg 8-23 tablet by ity o f tablet 00:00: mouth in [place] the Medical morning Branch and 1 tablet in the evening. bumetanide 2023-0 Yes [id number] 2mg Take 1 [facility] 2 mg tablet 8-23 tablet by ity of 00:00: mouth in [place] 00 the Medical morning Branch and 1 tablet in the evening. midodrine 5 2022-0 Yes [id number] 5mg Take 1 [facility] mg tablet 8-23 tablet by ity o f 00:00: mouth in [place] 00 the Medical morning Branch and 1 tablet at noon and 1 tablet in the evening. rosuvastati 2022-0 Yes [id number] 40mg Take 1 [facility] n 40 mg 8-23 tablet by ity of tablet 00:00: mouth at [place] [address] bedtime. Medical Branch spironolact 2022-0 Yes [id number] 50mg Take 1 [facility] one 50 mg 8-23 tablet by ity o f tablet 00:00: mouth in [place] the Medical morning Branch and 1 tablet in the evening. lactulose 2022-0 Yes [id number] 30mL Take 30 mL [facility] 10 gram/15 8-23 by mouth ity o f mL solution 00:00: in the morning. Medical Branch lactulose 2022-0 Yes [id number] 30mL Take 30 mL [facility] 10 gram/15 8-23 by mouth ity o f mL solution 00:00: in the morning. Medical Branch bumetanide 2022-0 Yes [id number] 2mg Take 1 [facility] 2 mg tablet 8-23 tablet by ity of 00:00: mouth in [place] the Medical morning Branch and 1 tablet in the evening. midodrine 5 2022-0 Yes [id number] 5mg Take 1 [facility] mg tablet 8-23 tablet by ity o f 00:00: mouth in [place] the Medical morning Branch and 1 tablet at noon and 1 tablet in the evening. rosuvastati 3-0 Yes [id number] 40mg Take 1 [facility] n 40 mg 8-23 tablet by ity of tablet 00:00: mouth at [place] [address] bedtime. Medical Branch spironolact 2022-0 Yes [id number] 50mg Take 1 [facility] one 50 mg 8-23 tablet by ity o f tablet 00:00: mouth in [place] [address] the Medical morning Branch and 1 tablet in the evening. lactulose 2022-0 Yes [id number] 30mL Take 30 mL [facility] 10 gram/15 8-23 by mouth ity o f mL solution 00:00: in the morning. Medical Branch bumetanide 3-0 Yes [id number] 2mg Take 1 [facility] nivers 2 mg tablet 8-23 tablet by ity of 00:00: mouth in [place] 00 the Medical morning Branch and 1 tablet in the evening. midodrine 5 3-0 Yes [id number] 5mg Take 1 [facility] mg tablet 8-23 tablet by ity o f 00:00: mouth in [place] 00 the Medical morning Branch and 1 tablet at noon and 1 tablet in the evening. rosuvastati 3-0 Yes [id number] 40mg Take 1 [facility] n 40 mg 8-23 tablet by ity of tablet 00:00: mouth at [place] [address] bedtime. Medical Branch spironolact 2022-0 Yes [id number] 50mg Take 1 [facility] one 50 mg 8-23 tablet by ity o f tablet 00:00: mouth in [place] the Medical morning Branch and 1 tablet in the evening. lactulose 2022-0 Yes [id number] 30mL Take 30 mL [facility] 10 gram/15 8-23 by mouth ity o f mL solution 00:00: in the morning. Medical Branch bumetanide 2022-0 Yes [id number] 2mg Take 1 [facility] nivers 2 mg tablet 8-23 tablet by ity of 00:00: mouth in [place] the Medical morning Branch and 1 tablet in the evening. midodrine 5 2022-0 Yes [id number] 5mg Take 1 [facility] mg tablet 8-23 tablet by ity o f 00:00: mouth in [place] the Medical morning Branch and 1 tablet at noon and 1 tablet in the evening. rosuvastati 3-0 Yes [id number] 40mg Take 1 [facility] n 40 mg 8-23 tablet by ity of tablet 00:00: mouth at [place] [address] bedtime. Medical Branch spironolact 3-0 Yes [id number] 50mg Take 1 [facility] one 50 mg 8-23 tablet by ity o f tablet 00:00: mouth in [place] the Medical morning Branch and 1 tablet in the evening. lactulose 3-0 Yes [id number] 30mL Take 30 mL [facility] 10 gram/15 8-23 by mouth ity o f mL solution 00:00: in the morning. Medical Branch bumetanide 3-0 Yes [id number] 2mg Take 1 U nivers 2 mg tablet 8-23 tablet by ity of 00:00: mouth in [place] 00 the Medical morning Branch and 1 tablet in the evening. midodrine 5 2022-0 Yes [id number] 5mg Take 1 [facility] mg tablet 8-23 tablet by ity o f 00:00: mouth in [place] 00 the Medical morning Branch and 1 tablet at noon and 1 tablet in the evening. rosuvastati 2022-0 Yes [id number] 40mg Take 1 [facility] n 40 mg 8-23 tablet by ity of tablet 00:00: mouth at [place] [address] bedtime. Medical Branch spironolact 2022-0 Yes [id number] 50mg Take 1 [facility] one 50 mg 8-23 tablet by ity o f tablet 00:00: mouth in [place] 00 the Medical morning Branch and 1 tablet in the evening. lactulose 2022-0 Yes [id number] 30mL Take 30 mL [facility] 10 gram/15 8-23 by mouth ity o f mL solution 00:00: in the morning. Medical Branch bumetanide 2022-0 Yes [id number] 2mg Take 1 U nivers 2 mg tablet 8-23 tablet by ity of 00:00: mouth in [place] the Medical morning Branch and 1 tablet in the evening. midodrine 5 2022-0 Yes [id number] 5mg Take 1 [facility] mg tablet 8-23 tablet by ity o f 00:00: mouth in [place] 00 the Medical morning Branch and 1 tablet at noon and 1 tablet in the evening. rosuvastati 2022-0 Yes [id number] 40mg Take 1 [facility] n 40 mg 8-23 tablet by ity of tablet 00:00: mouth at [place] [address] bedtime. Medical Branch spironolact 2022-0 Yes [id number] 50mg Take 1 [facility] one 50 mg 8-23 tablet by ity o f tablet 00:00: mouth in [place] the Medical morning Branch and 1 tablet in the evening. lactulose 3-0 Yes [id number] 30mL Take 30 mL [facility] 10 gram/15 8-23 by mouth ity o f mL solution 00:00: in the morning. Medical Branch bumetanide 3-0 Yes [id number] 2mg Take 1 U nivers 2 mg tablet 8-23 tablet by ity of 00:00: mouth in [place] the [facility] and 1 tablet in the evening. midodrine 5 2022-0 Yes [id number] 5mg Take 1 [facility] mg tablet 8-23 tablet by ity o f 00:00: mouth in [place] the [facility] and 1 tablet at noon and 1 tablet in the evening. rosuvastati 2022-0 Yes [id number] 40mg Take 1 [facility] n 40 mg 8-23 tablet by ity of tablet 00:00: mouth at [place] [address] bedtime. [facility] spironolact 2022-0 Yes [id number] 50mg Take 1 [facility] one 50 mg 8-23 tablet by ity o f tablet 00:00: mouth in [place] the [facility] and 1 tablet in the evening. lactulose 2022-0 Yes [id number] 30mL Take 30 mL [facility] 10 gram/15 8-23 by mouth ity o f mL solution 00:00: in the [facility] morning. [facility] bumetanide 2022-0 Yes [id number] 2mg Take 1 U nivers 2 mg tablet 8-23 tablet by ity of 00:00: mouth in [place] [address] the [facility] and 1 tablet in the evening. midodrine 5 2022-0 Yes [id number] 5mg Take 1 [facility] mg tablet 8-23 tablet by ity o f 00:00: mouth in [place] the [facility] and 1 tablet at noon and 1 tablet in the evening. rosuvastati 2022-0 Yes [id number] 40mg Take 1 [facility] n 40 mg 8-23 tablet by ity of tablet 00:00: mouth at [place] [address] bedtime. [facility] spironolact 2022-0 Yes [id number] 50mg Take 1 [facility] one 50 mg 8-23 tablet by ity o f tablet 00:00: mouth in [place] [address] the [facility] and 1 tablet in the evening. spironolact 2022-0 2022- No 25mg 25 mg, Uni vers one 03-26 Oral, ity of (ALDACTONE) 14:00: 15:07 DAILY, [place] tablet 25 00 :32 First dose Medi rob mg (after Branch last modificati on) on Sat03/26/23 at 0900, Until Discontinu ed, Routine iopamidol 0 2022- No ONCE INTRA U nivers (ISOVUE 03-25 PROCEDURE, ity o f 370-500 mL) 16:54: 17:06 Starting [place] injection 00 :26 on [facility] 03/25/23 at Branch 1154, Until 03/25/23 at 1206, Routine, CV Intraproce dure verapamiL 2023-0 2023- No ONCE INTRA U nivers (ISOPTIN) 03-25 PROCEDURE, ity of injection 16:36: 17:06 Starting [place] 25 :26 on [facility] 03/25/23 at Branch 1136, Until 03/25/23 at 1206, Routine, CV Intraproce dure nitroglycer 2022-0 2022- No ONCE INTRA Univers in (TRIDIL) 03-25 PROCEDURE, i ty of 2 mg in 10 16:36: 17:06 Starting [place] mL D5W for 14 :26 on [facility] Cardiac 03/25/23 at Branch Cath 1136, Until 03/25/23 at 1206, Routine, CV Intraproce dure heparin 2022-0 2022- No ONCE INTRA Uni vers 1,000 03-25 PROCEDURE, ity of unit/mL 16:35: 17:06 Starting [place] injection 59 :26 on [facility] 03/25/23 at Branch 1135, Until Sat03/25/23 at 1206, Routine, CV Intraproce dure lidocaine 2022-0 2022- No ONCE INTRA U nivers 1% (PF) 03-25 PROCEDURE, ity o f (XYLOCAINE) 16:29: 17:06 Starting [place] injection 34 :26 on [facility] 03/25/23 at Branch 1129, Until 03/25/23 at 1206, Routine, CV Intraproce dure lidocaine 202-0 2022- No ONCE INTRA U nivers 1% (PF) 03-25 PROCEDURE, ity o f (XYLOCAINE) 16:09: 17:06 Starting [place] injection 17 :26 on [facility] 03/25/23 at Branch 1109, Until 03/25/23 at 1206, Routine, CV Intraproce dure midazolam 2023-0 2023- No ONCE INTRA U nivers (VERSED) 03-25 PROCEDURE, ity of injection 16:04: 17:06 Starting [place] 28 :26 on [facility] 03/25/23 at Branch 1104, Until [facility] 03/25/23 at 1206, Routine, CV Intraproce dure FENTanyl PF No ONCE INTRA Univers (SUBLIMAZE 03-25 PROCEDURE, it y of (PF)) 16:04: 17:06 Starting [place] injection 19 :26 on [facility] 03/25/23 at Branch 1104, Until [facility] 03/25/23 at 1206, Routine, CV Intraproce dure KCL 2022- No 20meq 20 mEq, Univers (KLOR-CON 03-25 Oral, ity of M20) tablet 13:15: 13:31 ONCE, 1 [place] 20 mEq 00 :00 dose, [facility] 03/25/23 at 0815, Routine rosuvastati Yes 40mg 40 mg, Univ ers n (CRESTOR) 8- Oral, QHS, it y of tablet 40 02:00: First dose [place] mg 00 on [facility] 03/24/23 at Branch 2100, Until Discontinu ed, Routine rosuvastati Yes 40mg 40 mg, Univ ers n (CRESTOR) - Oral, QHS, it y of tablet 40 02:00: First dose [place] mg 00 on [facility] 03/24/23 at Branch 2100, Until Discontinu ed, Routine ampicillin 2022- No 2000mg 2,000 mg, Univers (POLYCILLIN 03-24 IV ity of -N) 2,000 17:45: 17:44 Piggyback, [place] mg in NaCl 00 :00 Q4H ABX, Medic al 0.9% (NS) 30 doses, Branc h 100 mL First dose MINI-BAG (after last modificati on) on [place] 03/24/23 at 1245, Last dose on Sat03/29/23 at 0845, Administer over 30 Minutes, 100 mL
Reas on for Anti-Infec tive: Documented Infection< br>Documen jean claude Infection Site: Blood
D uration of Therapy: 7 days ampicillin 2022- No 2000mg 2,000 mg, Univers (POLYCILLIN 8-20 08-25 IV ity of -N) 2,000 17:45: 17:44 Piggyback, [place] mg in NaCl 00 :00 Q4H ABX, Medic al 0.9% (NS) 30 doses, Branc h 100 mL First dose MINI-BAG (after last modificati on) on 03/24/23 at 1245, Last dose on Sat03/29/23 [...] infusion 2 ONCE, 1 g dose, On [place] 03/24/23 at 1015, Routine bumetanide 2022- No .5mg 0.5 mg, Uni vers (BUMEX) 03-24 Oral, BID, ity o f tablet 0.5 03:15: 15:07 First dose [place] mg 00 :[address] [facility] Medical 03/23/23 at Branch 2215, Until Discontinu ed, Routine iopamidol 2022- No [id number] 80mL 80 mL, U nivers (ISOVUE 03-23 Intravenou ity o f 300-500 mL) 15:10: 15:10 s, ONCE, 1 [place] injection 00 :00 dose, On Medica l 80 mL Sat Branch 03/23/23 at 1030, Routine HYDROcodone 0 Yes 1{tbl} 1 tablet, Univers -acetaminop 8-19 Oral, ity of hen (NORCO 14:48: Q6HPRN, [place] 5) 5-325 mg 02 Starting Medi rob tablet 1 on Sat Branch tablet 03/23/23 at 0948, Until Discontinu ed, Routine, Pain (scale 4-6) HYDROcodone 2022-0 Yes 1{tbl} 1 tablet, Univers -acetaminop 8-19 Oral, ity of hen (NORCO 14:48: Q6HPRN, [place] 5) 5-325 mg 02 Starting Medi rob tablet 1 on Sat Branch tablet 03/23/23 at 0948, Until Discontinu ed, Routine, Pain (scale 4-6) KCL 2022- No 40meq 40 mEq, Univers (KLOR-CON 03-23 Oral, Q2H, ity of M20) tablet 01:00: 04:59 2 doses, [place] 40 mEq 00 :00 First dose Medical on Sat Branch 03/22/23 at 2000, Last dose on Sat03/22/23 at 2200, Routine aspirin Yes 81mg 81 mg, Univers chewable 03-22 Oral, ity of tablet 81 14:00: DAILY, [place] mg 00 First dose Medical on Sat Branch 03/22/23 at 0900, Until Discontinu ed, Routine aspirin Yes 81mg 81 mg, Univers chewable 03-22 Oral, ity of tablet 81 14:00: DAILY, [place] mg 00 First dose Medical on Sat Branch 03/22/23 at 0900, Until Discontinu ed, Routine clopidogreL 2022- No 75mg 75 mg, Uni vers (PLAVIX) 75 03-22 Oral, ity of mg tablet 14:00: 15:21 DAILY, [place] 75 mg 00 :03 First dose Medical on Sat Branch 03/22/23 at 0900, Until Discontinu ed, Routine magnesium 2022- No 2g 2 g, IV Univ ers sulfate in 03-22 Piggyback, it y of water 2 13:15: 14:25 Administer Zac as gram/50 mL 00 :00 over 60 Medica l (4 %) Minutes, Branch infusion 2 ONCE, 1 g dose, On Sat03/22/23 at 0815, Routine KCL 2022- No 40meq 40 mEq, Univers (KLOR-CON 03-22 Oral, Q2H, ity of M20) tablet 13:00: 18:31 2 doses, [place] 40 mEq 00 :00 First dose Medical on Sat Branch 03/22/23 at 0800, Last dose on Sat03/22/23 at 1000, Routine ampicillin 2022-2022- No 2000mg 2,000 mg, Univers (POLYCILLIN 03-22 IV ity of -N) 2,000 01:33: 14:48 Piggyback, [place] mg in NaCl 16 :16 Q4H ABX, Medic al 0.9% (NS) 17 doses, Branc h 100 mL First dose MINI-BAG (after last modificati on) on [facility] 03/21/23 at 2045, Last dose on [place] 03/24/23 at 1245, Administer over 30 Minutes, 100 mL
Reas on for Anti-Infec tive: Documented Infection< br>Documen jean claude Infection Site: Blood
D uration of Therapy: 7 days KCL 0 2022- No 40meq 40 mEq, Univers (KLOR-CON 03-22 Oral, ity of M20) tablet 00:00: 23:29 ONCE, 1 [place] 40 mEq 00 :00 dose, On Medical [facility] Branch 03/21/23 at 1900, Routine potassium 2022- No 20meq 20 mEq, IV Univers chloride in 03-21 Piggyback, i ty of water (KCL) 23:30: 05:50 Q2H, 2 [place] as 20 mEq/100 00 :00 doses, Medical mL RTU IVPB First dose Br anch 20 mEq on [facility] 03/21/23 at 1830, Last dose on [facility] 03/21/23 at 2000, 100 mL NaCl 0.9% 0 Yes 10mL 10 mL, Univer s (NS) 03-21 Slow IV ity of injection 20:33: Push, PRN, [place] 10 mL 25 Starting Medical on [facility] Branch 03/21/23 at 1533, Until Discontinu ed, Routine, line maintenanc e lidocaine 0 Yes 5mL 5 mL, Univers 1% (PF) 03-21 Subcutaneo ity of (XYLOCAINE) 20:33: us, PRN, [place] injection 5 25 Starting Medi rob mL on [facility] Branch 03/21/23 at 1533, Until Discontinu ed, Routine, Local anesthesia NaCl 0.9% 0 Yes 10mL 10 mL, Univer s (NS) 03-21 Slow IV ity of injection 20:33: Push, PRN, [place] 10 mL 25 Starting Medical on [facility] Branch 03/21/23 at 1533, Until Discontinu ed, Routine, line maintenanc e lidocaine Yes 5mL 5 mL, Univers 1% (PF) 03-21 Subcutaneo ity of (XYLOCAINE) 20:33: us, PRN, [place] injection 5 25 Starting Medi rob mL on [place] Branch 03/21/23 at 1533, Until Discontinu ed, [...] INITIAL BOLUS OR INITIAL INFUSION RATE.
heparin 0 2022- No 3000U FOR Univers (1,000 03-21 REBOLUSING ity of unit/mL, 10 20:00: 14:47 , Starting [place] mL vial) 01 :55 on [facility] Medical for 03/21/23 at [place] Rebolusing 1500, Until 03/24/23 at 0947, Routine
Dosing based on aPPT testing parameters (refer to continuous heparin drip order).
lidocaine 0 Yes PRN, Univers 1% (PF) 03-21 Starting ity of (XYLOCAINE) 19:28: on [place] injection 10 03/21/23 at [facility] [address] Until Discontinu ed, Routine, Intra-op lidocaine 2022-0 Yes PRN, Univers 1% (PF) 03-21 Starting ity of (XYLOCAINE) 19:28: on [place] injection 23 at Medi rob 1428, Branch Until Discontinu ed, Routine, Intra-op magnesium 2022- [...] at 1315, Until Discontinu ed, Routine potassium 2022- No 20meq 20 mEq, IV [facility] chloride in 03-21 Infusion, it y of water (KCL) 17:45: 21:44 Q2H ES, 2 [place] 20 mEq/100 00 :00 doses, Medical mL RTU IVPB First dose Br anch 20 mEq on [place] 03/21/23 at 1245, Last dose on [place] 03/21/23 at 1445, 100 mL KCL 2022- No 40meq 40 mEq, Univers (KLOR-CON 03-21 Oral, ity of M20) tablet 16:00: 15:14 ONCE, 1 [place] 40 mEq 00 :00 dose, On Medical [place] Branch 03/21/23 at 1100, Routine magnesium 2022- No 4g 4 g, IV Univ ers sulfate in 03-21 Piggyback, it y of water 4 14:45: 16:27 at 25 [place] gram/50 mL 00 :00 mL/hr Medical (8 %) IV Administer Branc h Piggyback 4 over 120 g Minutes, ONCE, 1 dose, On [place] 03/21/23 at 0945, Routine potassium 2022-0 2022- No 20meq 20 mEq, IV [facility] chloride in 03-21 Piggyback, i ty of water (KCL) 13:00: 16:59 Q2H, 2 [place] 20 mEq/100 00 :00 doses, Medical mL RTU IVPB First dose Br anch 20 mEq on [facility] 03/21/23 at 0800, Last dose on [facility] 03/21/23 at 1000, 100 mL KCL 2022- No 40meq 40 mEq, Univers (KLOR-CON 03-21 Oral, ity of M20) tablet 12:30: 14:20 ONCE, 1 [place] 40 mEq 00 :00 dose, On [facility] 03/21/23 at 0730, Routine ampicillin 2022- No 2000mg 2,000 mg, Univers (POLYCILLIN 03-21 IV ity of -N) 2,000 09:30: 22:45 Piggyback, [place] mg in NaCl 00 :50 Q6H ABX, Medic al 0.9% (NS) 20 doses, Branc h 100 mL First dose MINI-BAG on [facility] 03/21/23 at 0430, Last dose on [facility] 03/25/23 at 2230, Administer over 30 Minutes, 100 mL
Reas on for Anti-Infec tive: Documented Infection< br>Documen jean claude Infection Site: Blood
D uration of Therapy: 7 days cyclobenzap 2022- No 5mg 5 mg, Univ ers rine 03-21 Oral, ity of (FLEXERIL) 03:00: 01:56 ONCE, 1 [place] tablet 5 mg 00 :00 dose, On [facility] 03/20/23 at 2200, Routine morpHINE (2 No 2mg 2 mg, Slow Univers mg/mL) 03-20 IV Push, ity of injection 2 15:45: 15:01 ONCE, 1 [place] mg 00 :00 dose, On [facility] 03/20/23 at 1045, Routine KCL No 40meq 40 mEq, Univers (KLOR-CON 03-20 Oral, ity of M20) tablet 14:45: 14:25 ONCE, 1 [place] 40 mEq 00 :00 dose, On [facility] 03/20/23 at 0945, Routine magnesium 2022- No 2g 2 g, IV Univ ers sulfate in 03-20 Piggyback, it y of water 2 14:45: 16:52 Administer Zac as gram/50 mL 00 :00 over 60 Medica l (4 %) Minutes, Branch infusion 2 ONCE, 1 g dose, On Sat03/20/23 at 0945, Routine metoprolol 2022-0 Yes 12.5mg 12.5 mg, U nivers succinate 03-20 Oral, ity of XL (TOPROL 14:00: DAILY, [place] XL) tablet 00 First dose Med ical 12.5 mg on Sat03/20/23 at 0900, Until Discontinu ed, Routine metoprolol 2022-0 Yes 12.5mg 12.5 mg, U nivers succinate 03-20 Oral, ity of XL (TOPROL 14:00: DAILY, [place] XL) tablet 00 First dose Med ical 12.5 mg on Sat03/20/23 at 0900, Until Discontinu ed, Routine vancomycin 2022- No 15mg/kg 1,250 mg Univers 1,250 mg in 03-20 (rounded ity of NaCl 0.9% 10:45: 14:25 from [place] (NS) 250 mL 00 :00 1,327.5 mg Me dical VIAL-MATE = 15 mg/kg Bran ch IV ?88.5 kg), piggyback IV Piggyback, ONCE, 1 dose, On Sat03/20/23 at 0545, Administer over 90 Minutes, 250 mL
Reas on for Anti-Infec tive: Documented Infection& lt;br>Docu mented Infection Site: Blood
D uration of Therapy: 7 days midodrine 2022-0 Yes 5mg 5 mg, Univers (PROAMATINE 8-15 Oral, TID, it y of ) tablet 5 19:00: First dose [place] mg 00 on [facility] 03/19/23 at Branch 1400, Until Discontinu ed, Routine midodrine 2022-0 Yes 5mg 5 mg, Univers (PROAMATINE 8-15 Oral, TID, it y of ) tablet 5 19:00: First dose [place] mg 00 on [facility] 03/19/23 at Branch 1400, Until Discontinu ed, Routine heparin 2022-0 2022- No 5000U 5,000 Univers (porcine) 8-15 08-17 Units, ity of injection 19:00: 20:00 Subcutaneo [place] 5,000 Units 00 :44 us, Q8H, Medi rob First dose Branch on Sat03/19/23 at 1400, Until Discontinu ed, Routine bumetanide 2022- No 2mg/h 2 mg/hr Un javier (BUMEX) 10 03-19 (10 ity of mg in D5W 16:15: 04:31 mL/hr), IV [place] 50 mL IV 00 :06 Infusion, Medica l infusion CONTINUOUS Branc h , Starting on Sat03/19/23 at 1115 chlorothiaz 2022- No 500mg 500 mg, IV Univers herlinda 03-19 Piggyback, ity of (DIURIL) 15:15: 16:40 DAILY, [place] 500 mg in 00 :19 First dose Medi rob NaCl 0.9% on Sat Branch (NS) 50 mL 03/19/23 at 1015, Until Discontinu ed, Administer over 15 Minutes, 50 mL
Facu lty member approving Restricted medication : MADAY HERNANDEZ spironolact 2022- No 50mg 50 mg, Uni vers one 03-19 Oral, ity of (ALDACTONE) 14:00: 15:18 DAILY, [place] tablet 50 00 :23 First dose Medi rob mg on Sat Branch 03/19/23 at 0900, Until Discontinu ed, Routine metoprolol No 25mg 25 mg, Univ ers succinate 03-19 Oral, ity of XL (TOPROL 14:00: 20:09 DAILY, [place] XL) tablet 00 :15 First dose Med ical 25 mg on Sat Branch 03/19/23 at 0900, Until Discontinu ed, Routine furosemide No 40mg 40 mg, Univ ers (LASIX) 03-19 Slow IV ity of injection 13:00: 15:12 Push, [place] 40 mg 00 :06 Q12H, Medical First dose Branch on Sat03/19/23 at 0800, Until Discontinu ed, Routine acetaminoph Yes 650mg 650 mg, Un javier en 03-19 Oral, ity of (TYLENOL) 11:51: Q6HPRN, [place] tablet 650 43 Starting Medic al mg on e Branch 03/19/23 at 0651, Until Discontinu ed, Routine, Pain (scale 1-3) acetaminoph Yes 650mg 650 mg, Un javier en 8 Oral, ity of (TYLENOL) 11:51: Q6HPRN, [place] tablet 650 43 Starting Medic al mg on e Branch 03/19/23 at 0651, Until Discontinu ed, Routine, Pain (scale 1-3) Lactulose Lactulose 2019-0 Yes 20 THREE TIME [place] (LACTULOSE (LACTULOSE 12-15 A lle 10 GM/15 ML 10 GM/15 ML 13:48: DAY(15; [facility] ORAL SOLN) ORAL SOLN) 00 21) l 10 GM/15 ML 10 GM/15 ML H ospita JUSTINO JUSTINO l Rifaximin Rifaximin 0 Yes 550 EVERY [place] (Xifaxan) (Xifaxan) 13 TWELVE lle 550 MG TAB 550 MG TAB 13:48: HOURS [facility] 00 l Hospita l potassium 2018-0 Yes 20meq QD Take [address] [facility] chloride 5-06 mEq by [facility] (KLOR-CON) 14:36: mouth Medica l 20 mEq 31 daily. [place] packet nadolol Yes 20mg QD Take [address] [facility] (CORGARD) 5-06 by mouth [facility] 20 MG 14:36: daily. Medical tablet 31 [place] ferrous 0 Yes 134mg QD Take 134 [facility] sulfate 134 5-06 mg by [facility] mg (27 mg 14:36: mouth Medical iron) Tab 31 daily. [place] folic acid 0 Yes 1mg QD Take [address] (FOLVITE) 1 5-06 by mouth Luke s MG tablet 14:36: daily. Medica l 31 [place] furosemide 0 Yes 40mg QD Take [address] (LASIX) 40 5-06 by mouth [facility] MG tablet 14:36: daily. Medica l 31 [place] lactulose 0 Yes 20g Q.[id number] Take [address] [facility] (CEPHULAC) 5-06 [id number] by mouth 3 [facility] 20 gram 14:36: 3D (three) Medical packet 31 times Center daily. multivitami 2019-0 Yes 1{tbl} QD Take [address] n per 5-06 tablet by [facility] tablet 14:36: mouth Medical 31 daily. [place] omeprazole 2019-0 Yes 40mg Q.5D Take [address] (PRILOSEC) 5-06 by mouth 2 Gely es 40 MG 14:36: (two) Medical capsule 31 times Center daily. spironolact 2019-0 Yes 100mg Q.5D Take [address] one 5-06 mg by [facility] (ALDACTONE) 14:36: mouth 2 Med ical 100 MG 31 (two) Center tablet times daily. sodium 2019-0 Yes 650mg Q.5D Take [address] bicarbonate 5-06 mg by [facility] 325 MG 14:36: mouth 2 Medical tablet 31 (two) Center times daily . potassium 2018-0 Yes 20meq QD Take [address] chloride 5-06 mEq by [facility] (KLOR-CON) 14:36: mouth Medica l 20 mEq 31 daily. Center packet nadolol 0 Yes 20mg QD Take [address] [facility] [address] (CORGARD) 5-06 by mouth [facility] 20 MG 14:36: daily. Medical tablet 31 [place] ferrous 0 Yes 134mg QD Take 134 [facility] sulfate 134 5-06 mg by [facility] mg (27 mg 14:36: mouth Medical iron) Tab 31 daily. [place] folic acid 0 Yes 1mg QD Take [address] (FOLVITE) 1 5-06 by mouth Luke s MG tablet 14:36: daily. Medica l 31 [place] furosemide 0 Yes 40mg QD Take [address] (LASIX) 40 5-06 by mouth [facility] MG tablet 14:36: daily. Medica l 31 [place] lactulose 2018-0 Yes 20g Q.[id number] Take [address] [facility] (CEPHULAC) 5-06 [id number] by mouth 3 [facility] 20 gram 14:36: 3D (three) Medical packet 31 times Center daily. multivitami 2018-0 Yes 1{tbl} QD Take [address] n per 5-06 tablet by [facility] tablet 14:36: mouth Medical 31 daily. [place] omeprazole 0 Yes 40mg Q.5D Take [address] (PRILOSEC) 5-06 by mouth 2 [place] 40 MG 14:36: (two) Medical capsule 31 times Center daily. spironolact 2019-0 Yes 100mg Q.5D Take [address] one 5-06 mg by [facility] (ALDACTONE) 14:36: mouth 2 Med ical 100 MG 31 (two) Center tablet times daily. sodium 2019-0 Yes 650mg Q.5D Take [address] bicarbonate 5-06 mg by [facility] 325 MG 14:36: mouth 2 Medical tablet 31 (two) Center times daily . potassium 2019-0 Yes 20meq QD Take [address] chloride 5-06 mEq by [facility] (KLOR-CON) 14:36: mouth Medica l 20 mEq 31 daily. Center packet nadolol 0 Yes 20mg QD Take [address] [facility] [address] (CORGARD) 5-06 by mouth [facility] 20 MG 14:36: daily. Medical tablet 31 [place] ferrous 0 Yes 134mg QD Take 134 [facility] sulfate 134 5-06 mg by [facility] mg (27 mg 14:36: mouth Medical iron) Tab 31 daily. [place] folic acid 0 Yes 1mg QD Take [address] (FOLVITE) 1 5-06 by mouth Luke s MG tablet 14:36: daily. Medica l 31 [place] furosemide 0 Yes 40mg QD Take [address] (LASIX) 40 5-06 by mouth [facility] MG tablet 14:36: daily. Medica l 31 [place] lactulose 2018-0 Yes 20g Q.[id number] Take [address] [facility] [address] (CEPHULAC) 5-06 [id number] by mouth 3 [facility] 20 gram 14:36: 3D (three) Medical packet 31 times Center daily. multivitami 2019-0 Yes 1{tbl} QD Take [address] n per 5-06 tablet by [facility] tablet 14:36: mouth Medical 31 daily. Center omeprazole 2018-0 Yes 40mg Q.5D Take [address] (PRILOSEC) 5-06 by mouth 2 [place] 40 MG 14:36: (two) Medical capsule 31 times Center daily. spironolact 2019-0 Yes 100mg Q.5D Take [address] one 5-06 mg by [facility] (ALDACTONE) 14:36: mouth 2 Med ical 100 MG 31 (two) Center tablet times daily. sodium 2019-0 Yes 650mg Q.5D Take [address] bicarbonate 5-06 mg by [facility] 325 MG 14:36: mouth 2 Medical tablet 31 (two) Center times daily . potassium 2019-0 Yes 20meq Q.5D Take 20 Meth di[facility]i chloride 1-[address] (KLOR-CON) 17:26: mouth 2 Hosp faye 20 mEq 49 (two) l packet times a day. ondansetron 2019-0 Yes 4mg Q8H Take 4 mg M [...] a 49 l lactulose 2019-0 Yes 20g Q.[id number] Take 20 g [facility] (CEPHULAC) 1-04 [id number] mouth [facility] [address] 20 gram 17:26: 3D (three) Hospita packet 49 times a l day. midodrine 2019-0 Yes 5mg Q.10448250 Take 5 mg [facility] (PROAMATINE 1-04 [id number] mouth 3 [address] ) 5 MG [...] (two) l packet times a day. ondansetron 2019-0 Yes 4mg Q8H Take 4 mg M [...] a tablet 49 daily with l breakfast. ondansetron 2019-0 Yes 4mg Q8H Take 4 mg M [...] a 49 l lactulose 2019-0 Yes 20g Q.[id number] Take 20 g [facility] (CEPHULAC) 1-[id number] mouth [address] 20 gram 17:26: 3D (three) Hospita packet 49 times a l day. midodrine 2019-0 Yes 5mg Q.[id number] Take 5 mg [facility] (PROAMATINE -04 [id number] [address] mouth 3 st ) 5 MG [...] 49 (two) l packet times a day. folic acid 2019-0 Yes 1mg QD Take 1 mg Me [facility]odi (FOLVITE) 1 1-[address] MG tablet 17:26: daily. Hospit a 49 l lactulose 2019-0 Yes 20g Q.71591775 Take 20 g [facility] (CEPHULAC) - [id number] by mouth [facility] 20 gram 17:26: 3D (three) Hospita packet 49 times a l day. midodrine 2019-0 Yes 5mg Q.36966348 Take 5 mg [facility] (PROAMATINE - [id number] by mouth 3 st ) 5 MG 17:26: 3D (three) Hospita tablet 49 times a l day. nadolol 2019-0 Yes 20mg QD Take 20 mg Meth dipti (CORGARD) -[address] 20 MG 17:26: daily. [...] (two) l packet times a day. ondansetron 2019-0 Yes 4mg Q8H Take 4 mg M [...] Take 1 mg Me [facility]odi (FOLVITE) 1 -[address] MG tablet 17:26: daily. Hospit a 49 l lactulose 2019-0 Yes 20g Q.10449011 Take 20 g [facility] (CEPHULAC) - [id number] by mouth [facility] 20 gram 17:26: 3D (three) Hospita packet 49 times a l day. midodrine 2019-0 Yes 5mg Q.50018098 Take 5 mg [facility] (PROAMATINE - [id number] by mouth 3 st ) 5 MG 17:26: 3D (three) Hospita tablet 49 times a l day. nadolol Yes 20mg QD Take 20 mg Meth dipti (CORGARD) 08-[address] 20 MG 17:26: daily. Hospita tablet 49 l omeprazole Yes 40mg QD Take 40 mg M ethodi (PriLOSEC) [address] 40 MG 17:26: daily. Hospita capsule 49 l rifAXIMin 2017-08 Yes 550mg Q.5D Take 1 [facility] mg Tab 0-23 tablet [facility] 00:00: (550 mg Medical total) by Center mouth 2 (two) times daily. rifAXIMin 2017-08 Yes 550mg Q.5D Take 1 [facility] mg Tab 0-23 tablet [facility] 00:00: (550 mg Medical total) by Center mouth 2 (two) times daily. rifAXIMin 2017-08 Yes 550mg Q.5D Take 1 [facility] mg Tab 0-23 tablet [facility] 00:00: (550 mg Medical total) by Center mouth 2 (two) times daily. ondansetron Yes TK [address] [facility] (ZOFRAN) 4 4-03 Q 8 H PRN Luke [facility] MG tablet 00:00: Medical 00 [place] ondansetron Yes TK [address] [facility] (ZOFRAN) 4 4-03 Q 8 H PRN Luke s MG tablet 00:00: Medical 00 [place] ondansetron Yes TK [address] [facility] (ZOFRAN) 4 4-03 Q 8 H PRN Luke s MG tablet 00:00: Medical 00 [place] midodrine Yes TWICE [facility] (PROAMATINE 3-20 DAILY [facility] ) 5 MG 00:00: Medical tablet 00 [place] midodrine Yes TWICE [facility] (PROAMATINE 3-20 DAILY [facility] ) 5 MG 00:00: Medical tablet 00 [place] midodrine Yes TWICE [facility] (PROAMATINE 3-20 DAILY [facility] ) 5 MG 00:00: Medical tablet 00 [place] HYDROXYZINE HYDROXYZINE Yes 25 THREE TIME [place] HCL (ATARAX HCL (ATARAX A l le 25 MG TAB) 25 MG TAB) DAY(09;15; [facility] 25 MG TAB 25 MG TAB 21) l Hospita l Midodrine Midodrine Yes 5 THREE TIME [place] HCl HCl A lle (PROAMATINE (PROAMATINE DAY(;15; [facility] 5 MG TAB) 5 5 MG [...] Status Comments Source Immunization Name Immunization Name IG 2023-03-19 Completed [facility] 00:00: [facility] HBIG 2023-03-19 Completed University of 00:00: [facility] HBIG 2023-03-19 Completed University of 00:00: [facility] HBIG 2023-03-19 Completed University of 00:00:00 [facility] HBIG 2023-03-19 Completed University of 00:00:00 [facility] HBIG 2023-03-19 Completed University of 00:00:00 [facility] HBIG 2023-03-19 Completed University of 00:00:00 [facility] HBIG 2023-03-19 Completed University of 00:00:00 [facility] HBIG Unknown Completed [facility] HBIG Unknown Completed [facility] HBIG Unknown Completed [facility] HBIG Unknown Completed [facility] HBIG Unknown Completed [facility] HBIG Unknown Completed [facility] HBIG Unknown Completed [facility] HBIG Unknown Completed [facility] HBIG Unknown Completed [facility] HBIG Unknown Completed [facility] HBIG Unknown Completed [facility] HBIG Unknown Completed [facility] Vital Signs Vital Name Observation Time Observation Value Comments Source Systolic blood 2023-06-20 116 mm[Hg] [place] of pressure 17:31:00 [facility] Diastolic blood 2023-06-20 70 mm[Hg] [place] o f pressure 17:31:00 [facility] Heart rate 2023-06-20 94 /min University 17:31:00 [facility] Body temperature 2023-06-20 36.44 Erica University 17:31:00 [facility] Respiratory rate 2023-06-20 18 /min University of 17:31:00 [facility] Oxygen saturation 2023-06-20 94 /min University of in Arterial blood 17:31:00 [facility] rob by Pulse oximetry Branch Body weight 2023-06-20 92.171 kg University of 10:18:00 [facility] BMI 2023-06-20 32.80 kg/m2 University of 10:18:00 [facility] Body height 2023-06-16 167.6 cm University of 21:08:00 [facility] Systolic blood 2023-03-28 104 mm[Hg] University of pressure 16:57:00 [facility] Diastolic blood 2023-03-28 68 mm[Hg] University o f pressure 16:57:00 [facility] Heart rate 2023-03-28 92 /min University of 16:57:00 [facility] Body temperature 2023-03-28 36.22 Erica University of 16:57:00 [facility] Respiratory rate 2023-03-28 20 /min University of 16:57:00 [facility] Oxygen saturation 2023-03-28 96 /min University of in Arterial blood 16:57:00 [facility] by Pulse oximetry Branch Body weight 2023-03-28 73.165 kg University of 01:37:00 [facility] BMI 2023-03-28 26.03 kg/m2 University of 01:37:00 [facility] Body height 2023-03-19 167.6 cm University of 11:23:00 [facility] Systolic blood 2023-03-25 111 mm[Hg] University of pressure 17:30:00 [facility] Diastolic blood 2023-03-25 59 mm[Hg] University o f pressure 17:30:00 [facility] Heart rate 2023-03-25 79 /min University of 17:30:00 [facility] Body temperature 2023-03-25 36.28 Erica University of 17:23:00 [facility] Respiratory rate 2023-03-25 20 /min University of 17:23:00 [facility] Oxygen saturation 2023-03-25 97 /min University of in Arterial blood 17:23:00 [facility] by Pulse oximetry Branch Body weight 2023-03-21 75.342 kg standing scale University of 10:52:00 [facility] BMI 2023-03-21 27.50 kg/m2 University of 10:52:00 [facility] Body height 2023-03-19 167.6 cm [facility] :23:00 [facility] Heart Rate 2020-01-02 80 /min [place] 09:00:00 [facility] BP Systolic 2020-01-02 110 mm[Hg] 07:51:00 [facility] BP Diastolic 2020-01-02 62 mm[Hg] [place] 07:51:00 [facility] Body Temperature 2020-01-02 96.9 [degF] [place] 07:51:00 [facility] Respiratory rate 2020-01-02 16 /min [place] 07:51:00 [facility] Oxygen saturation 2020-01-02 96 /min [place] by Pulse oximetry 07:51:00 [facility] Height 2020-01-02 66 [in_i] [place] 06:00:00 [facility] Weight 2020-01-02 58.712 kg [place] 06:00:00 [facility] BMI (Body Mass 2020-01-02 20.9 kg/m2 [place] Index) 06:00:00 [facility] BP Systolic 2019-12-16 109 mm[Hg] 13:56:00 [facility] BP Diastolic 2019-12-16 66 mm[Hg] [place] 13:56:00 [facility] Body Temperature 2019-12-16 98.5 [degF] [place] 13:56:00 [facility] Respiratory rate 2019-12-16 18 /min [place] 13:56:00 [facility] Heart Rate 2019-12-16 111 /min [place] 13:56:00 [facility] Oxygen saturation 2019-12-16 95 /min [place] by Pulse oximetry 13:56:00 [facility] Height 2019-12-16 68 [in_i] [place] 06:00:00 [facility] Weight 2019-12-16 51.029 kg [place] 06:00:00 [facility] BMI (Body Mass 2019-12-16 17.1 kg/m2 [place] Index) 06:00:00 [facility] Respiratory rate 2019-04-16 18 /min [place] 13:37:00 [facility] Procedures Procedure Date / Time Performing Clinician Source Performed COMP. METABOLIC PANEL 2023-06-20 10:12:00 Batool Estrada [facility] ([id number]) [facility] CBC WITH DIFF 2023-06-20 10:12:00 Batool Estrada [facility] MAGNESIUM 2023-06-19 09:47:00 [facility] COMP. METABOLIC PANEL 2023-06-19 09:47:00 Batool Estrada [facility] ([id number]) [facility] CBC WITH DIFF 2023-06-19 09:47:00 Araceli Estradaherine [facility] MAGNESIUM 2023-06-18 09:18:00 La Nena Angulo [facility] BASIC METABOLIC PANEL (NA, 2023-06-18 09:18:00 La Nena Angulo [facility] K, CL, CO2, GLUCOSE, BUN, Medica l Branch CREATININE, CA) CBC WITH DIFF 2023-06-18 09:18:00 [place]ena Angulo [facility] BASIC METABOLIC PANEL (NA, 2023-06-17 23:33:00 La Nena Angulo [facility] K, CL, CO2, GLUCOSE, BUN, Medica l Branch CREATININE, CA) MAGNESIUM 2023-06-17 16:44:00 La Nena Angulo [facility] BASIC METABOLIC PANEL (NA, 2023-06-17 16:44:00 La Nena Angulo [facility] K, CL, CO2, GLUCOSE, BUN, Medica l Branch CREATININE, CA) LACTIC ACID WHOLE BLOOD 2023-06-17 03:52:[address] [facility] BASIC METABOLIC PANEL (NA, 2023-06-17 03:48:00 Mariel [facility] K, CL, CO2, GLUCOSE, BUN, Medica l Branch CREATININE, CA) LACTIC ACID WHOLE BLOOD 2023-06-16 23:59:[address] [facility] AMMONIA, PLASMA 2023-06-16 21:40:00 Mariel Grey [facility] LACTIC ACID WHOLE BLOOD 2023-06-16 21:40:[address] [facility] POCT GLUCOSE (AUTOMATED) 2023-06-16 20:18:00 Kimber Verdugo [facility] URINE CULTURE 2023-06-16 18:16:00 Kimber Verdugo [facility] LACTIC ACID WHOLE BLOOD 2023-06-16 18:14:00 Kimber Verdugo [facility] CT ABDOMEN PELVIS W 2023-06-16 17:27:51 [facility] URINALYSIS 2023-06-16 17:15:00 Kimber Verdugo [facility] XR CHEST 1 VW 2023-06-16 16:05:52 Kimber Verdugo [facility] PROTHROMBIN TIME / INR 2023-06-16 15:54:00 Kimber Verdugo [facility] ACTIVATED PARTIAL THRMPLAS 2023-06-16 15:54:00 [facility] WHOLE BLOOD 2023-06-16 15:54:00 Kimber Verdugo [facility] MAGNESIUM 2023-06-16 15:51:00 Kimber Verdugo [facility] TROPONIN I 2023-06-16 15:51:00 Kimber Verdugo [facility] COMP. METABOLIC PANEL 2023-06-16 15:51:00 Kimber Verdugo [facility] ([id number]) [facility] CBC WITH DIFF 2023-06-16 15:51:00 Kimber Verdugo [facility] RAPID INFLUENZA A/B 2023-06-16 15:51:00 [facility]MINAL PRO-BNP 2023-06-16 15:51:00 [facility] (ID NOW RAPID 2023-06-16 15:51:00 Kimber Verdugo [facility] TESTING) [facility] LAB ONLY COVID 2023-06-16 15:51:00 Kimber Verdugo [facility] HB ECG ROUTINE & RHYTHM 2023-06-16 15:33:32 Kimber Verdugo [facility] EXTERNAL PROVIDER RECORDS 2023-04-04 05:01:00 Doctor Unassigned, [facility] [place] [facility] POCT GLUCOSE (AUTOMATED) 2023-03-28 16:58:00 Matty Welch [facility] MAGNESIUM 2023-03-28 15:49:00 Murphy [facility] BASIC METABOLIC PANEL (NA, 2023-03-28 15:49:00 Tricia [facility] K, CL, CO2, GLUCOSE, BUN, [facility] CREATININE, CA) N-TERMINAL PRO-BNP 2023-03-28 15:49:00 Tricia Arrington [facility] POCT GLUCOSE (AUTOMATED) 2023-03-28 13:16:00 Matty Welch [facility] CBC WITH DIFF 2023-03-28 12:49:00 Cherise Costa [facility] PROTHROMBIN TIME / INR 2023-03-28 12:49:[address] [facility] POCT GLUCOSE (AUTOMATED) 2023-03-28 01:40:00 Matty Welch [facility] PROTHROMBIN TIME / INR 2023-03-28 00:24:00 Kade Brunson [facility] CBC WITH DIFF 2023-03-27 23:44:00 Nannette [facility] ALPHA FETOPROTEIN 2023-03-27 21:26:00 Dany [facility] HEPATITIS B SURFACE 2023-03-27 21:26:00 Mariel Saenz [facility] ANTIBODY [facility] HEPATITIS B SURFACE 2023-03-27 21:26:00 Mariel Saenz [facility] ANTIGEN [facility] HCV ANTIBODY 2023-03-27 21:26:00 Mariel Saenz [facility] AMMONIA, PLASMA 2023-03-27 16:48:00 Cherise Costa [facility] BILI UNCONJUGATED/BILI 2023-03-27 09:58:00 Lerint, [facility] COMP. METABOLIC PANEL 2023-03-27 09:58:00 Cherise Costa [facility] ([id number]) [facility] CBC WITH DIFF 2023-03-27 09:58:00 Cherise Costa [facility] N-TERMINAL PRO-BNP 2023-03-27 09:58:[address] [facility] TRANSTHORACIC ECHO (TTE) 2023-03-26 16:30:25 Cherise Costa [facility] TRANSTHORACIC ECHO (TTE) 2023-03-26 16:30:25 Cherise Costa [facility] HB ECG ROUTINE & RHYTHM 2023-03-26 13:38:05 Erik Jansen [facility] MAGNESIUM 2023-03-26 09:12:00 Cherise Costa [facility] HEPATIC FUNCTION PANEL 2023-03-26 09:12:00 [facility] Hospital[facility] ([id number]) (ALB,T.PRO,[facility] T,BU/BC,ALT,AST,ALK PHOS) BASIC METABOLIC PANEL (NA, 2023-03-26 09:12:00 Cherise Costa [facility] K, CL, CO2, GLUCOSE, BUN, Medica l Branch CREATININE, CA) CBC WITH DIFF 2023-03-26 09:12:00 Cherise Costa [facility] MAGNESIUM 2023-03-26 09:12:00 Cherise Costa [facility] HEPATIC FUNCTION PANEL 2023-03-26 09:12:00 [facility] ([id number] (ALB,T.PRO,[facility] T,BU/BC,ALT,AST,ALK PHOS) BASIC METABOLIC PANEL (NA, 2023-03-26 09:12:00 Cherise Costa [facility] K, CL, CO2, GLUCOSE, BUN, Medica l Branch CREATININE, CA) CBC WITH DIFF 2023-03-26 09:12:00 Cherise Costa [facility] ACTIVATED PARTIAL THRMPLAS 2023-03-25 17:55:00 Cherise Costa [facility] ACTIVATED PARTIAL THRMPLAS 2023-03-25 17:55:00 Cherise Costa [facility] CARDIAC CATHETERIZATION 2023-03-25 16:46:55 David [facility] CARDIAC CATHETERIZATION 2023-03-25 16:46:55 David [facility] CARDIAC CATHETERIZATION 2023-03-25 16:46:55 David [facility] CARDIAC CATHETERIZATION 2023-03-25 16:46:55 David [facility] CARDIAC CATHETERIZATION 2023-03-25 16:46:55 David [facility] CARDIAC CATHETERIZATION 2023-03-25 16:46:55 David [facility] CATH PROCEDURE LOG 2023-03-25 16:08:34 David [facility] CATH PROCEDURE LOG 2023-03-25 16:08:34 David [facility] HB ECG ROUTINE & RHYTHM 2023-03-25 12:43:31 Erik Jansen [facility] STRIP [facility] MAGNESIUM 2023-03-25 10:30:00 [facility] C-REACTIVE PROTEIN 2023-03-25 10:30:00 Dany [facility] HEPATIC FUNCTION PANEL 2023-03-25 10:30:00 [facility] Center[facility] saravia [facility] ([id number]) (ALB,T.PRO,BILI [facility] T,BU/BC,ALT,AST,ALK PHOS) BASIC METABOLIC PANEL (NA, 2023-03-25 10:30:00 Yamilet Kelly [facility] K, CL, CO2, GLUCOSE, BUN, Medica l Branch CREATININE, CA) SEDIMENTATION RATE 2023-03-25 10:30:00 Dany [facility] CBC WITH DIFF 2023-03-25 10:30:00 [place], [facility] MAGNESIUM 2023-03-25 10:30:00 [place], [facility] C-REACTIVE PROTEIN 2023-03-25 10:30:00 Dany [facility] HEPATIC FUNCTION PANEL 2023-03-25 10:30:00 Laura [facility] ([id number]) (ALB,T.PRO,[facility] T,BU/BC,ALT,AST,ALK PHOS) BASIC METABOLIC PANEL (NA, 2023-03-25 10:30:00 [place], [facility] K, CL, CO2, GLUCOSE, BUN, Medica l Branch CREATININE, CA) SEDIMENTATION RATE 2023-03-25 10:30:00 Dany [facility] CBC WITH DIFF 2023-03-25 10:30:00 [place], [facility] HB ECG ROUTINE & RHYTHM 2023-03-24 13:05:20 Erik Jansen [facility] HB ECG ROUTINE & RHYTHM 2023-03-24 13:05:20 Erik Jansen [facility] MAGNESIUM 2023-03-24 09:54:00 [facility] HEPATIC FUNCTION PANEL 2023-03-24 09:54:00 [facility]it [facility] ([id number]) (ALB,T.PRO,[facility] T,BU/BC,ALT,AST,ALK PHOS) BASIC METABOLIC PANEL (NA, 2023-03-24 09:54:[address] [facility] K, CL, CO2, GLUCOSE, BUN, [facility] CREATININE, CA) CBC WITH DIFF 2023-03-24 09:54:00 Erik Jansen [facility] MAGNESIUM 2023-03-24 09:54:00 Erik Jansen [facility] HEPATIC FUNCTION PANEL 2023-03-24 09:54:00 Tim Sanchez [facility] ([id number]) (ALB,T.PRO,BILI [facility] T,BU/BC,ALT,AST,ALK PHOS) BASIC METABOLIC PANEL (NA, 2023-03-24 09:54:[address] [facility] K, CL, CO2, GLUCOSE, BUN, [facility] CREATININE, CA) CBC WITH DIFF 2023-03-24 09:54:00 Bianka Marroquin [facility] CBC WITHOUT DIFF 2023-03-23 23:25:00 Erik Jansen [facility] CBC WITHOUT DIFF 2023-03-23 23:25:00 Erik Jansen [facility] CBC WITHOUT DIFF 2023-03-23 19:09:00 [place], [facility] CBC WITHOUT DIFF 2023-03-23 19:09:00 [place], [facility] CT ABDOMEN PELVIS W 2023-03-23 15:18:24 [place], [facility] CT ABDOMEN PELVIS W 2023-03-23 15:18:24 [place], [facility] HB ECG ROUTINE & RHYTHM 2023-03-23 13:10:37 Erik Jansen [facility] HB ECG ROUTINE & RHYTHM 2023-03-23 13:10:37 Erik Jansen [facility] HEPATIC FUNCTION PANEL 2023-03-23 09:26:00 Tim Sanchez [facility] ([id number]) (ALB,T.PRO,[facility] T,BU/BC,ALT,AST,ALK PHOS) BASIC METABOLIC PANEL (NA, 2023-03-23 09:26:00 [place], Yamilet [facility] K, CL, CO2, GLUCOSE, BUN, Medica l Branch CREATININE, CA) CBC WITHOUT DIFF 2023-03-23 09:26:00 Tricia Arrington [facility] ACTIVATED PARTIAL THRMPLAS 2023-03-23 09:26:00 Murphy, Hanan [facility] HEPATIC FUNCTION PANEL 2023-03-23 09:26:00 Tim Sanchez [facility] ([id number]) (ALB,T.PRO,BILI [facility] T,BU/BC,ALT,AST,ALK PHOS) BASIC METABOLIC PANEL (NA, 2023-03-23 09:26:00 [place], Yamilet There [facility] K, CL, CO2, GLUCOSE, BUN, Medica l Branch CREATININE, CA) CBC WITHOUT DIFF 2023-03-23 09:26:00 Tricia Arrington [facility] ACTIVATED PARTIAL THRMPLAS 2023-03-23 09:26:00 Tricia Arrington [facility] ACTIVATED PARTIAL THRMPLAS 2023-03-23 04:06:00 Tricia Arrington [facility] ACTIVATED PARTIAL THRMPLAS 2023-03-23 04:06:00 Tricia Arrington [facility] BASIC METABOLIC PANEL (NA, 2023-03-22 18:38:00 [place], [facility] K, CL, CO2, GLUCOSE, BUN, Medica l Branch CREATININE, CA) BASIC METABOLIC PANEL (NA, 2023-03-22 18:38:00 [place], [facility] K, CL, CO2, GLUCOSE, BUN, Medica [facility] Branch CREATININE, CA) BLOOD CULTURE SCREEN 2023-03-22 16:55:00 Maday Hernandez [facility] ACTIVATED PARTIAL THRMPLAS 2023-03-22 16:55:00 Tricia Arrington [facility] BLOOD CULTURE SCREEN 2023-03-22 16:55:00 Maday Hernandez [facility] ACTIVATED PARTIAL THRMPLAS 2023-03-22 16:55:00 Tricia Arrington [facility] HB ECG ROUTINE & RHYTHM 2023-03-22 13:37:33 Erik Jansen [facility] HB ECG ROUTINE & RHYTHM 2023-03-22 13:37:33 Erik Jansen [facility] MAGNESIUM 2023-03-22 10:45:00 Erik Jansen [facility] HEPATIC FUNCTION PANEL 2023-03-22 10:45:00 [facility] CenterShanna [facility]aviaNov[facility] ([id number]) (ALB,T.PRO,BILI [facility] T,BU/BC,ALT,AST,ALK PHOS) BASIC METABOLIC PANEL (NA, 2023-03-22 10:45:[address] [facility] K, CL, CO2, GLUCOSE, BUN, [facility] CREATININE, CA) CBC WITH DIFF 2023-03-22 10:45:00 Erik Jnasen [facility] ACTIVATED PARTIAL THRMPLAS 2023-03-22 10:45:00 Tricia Arrington [facility] MAGNESIUM 2023-03-22 10:45:00 Erik Jansen [facility] HEPATIC FUNCTION PANEL 2023-03-22 10:45:00 MartaTim saravia [facility] ([id number]) (ALB,T.PRO,BILI [facility] T,BU/BC,ALT,AST,ALK PHOS) BASIC METABOLIC PANEL (NA, 2023-03-22 10:45:[address] [facility] K, CL, CO2, GLUCOSE, BUN, [facility] CREATININE, CA) CBC WITH DIFF 2023-03-22 10:45:00 Erik Jansen [facility] ACTIVATED PARTIAL THRMPLAS 2023-03-22 10:45:00 Tricia Arrington [facility] ACTIVATED PARTIAL THRMPLAS 2023-03-22 04:11:00 Tricia Arrington [facility] ACTIVATED PARTIAL THRMPLAS 2023-03-22 04:11:00 [facility] TROPONIN I 2023-03-21 21:16:00 Erik Jansen [facility] BASIC METABOLIC PANEL (NA, 2023-03-21 21:16:00 Erik Jansen [facility] K, CL, CO2, GLUCOSE, BUN, [facility] CREATININE, CA) PROTHROMBIN TIME / INR 2023-03-21 21:16:00 Tricia [facility]rington [facility] ACTIVATED PARTIAL THRMPLAS 2023-03-21 21:16:00 Tricia Arrington [facility] TROPONIN I 2023-03-21 21:16:00 Erik Jansen [facility] BASIC METABOLIC PANEL (NA, 2023-03-21 21:16:[address] [facility] K, CL, CO2, GLUCOSE, BUN, [facility] CREATININE, CA) PROTHROMBIN TIME / INR 2023-03-21 21:16:00 Tricia Arrington [facility] ACTIVATED PARTIAL THRMPLAS 2023-03-21 21:16:00 Tricia Arrington [facility] XR CHEST 1 VW 2023-03-21 21:13:00 Bharathi Peters [facility] XR CHEST 1 VW 2023-03-21 21:13:00 Bharathi Peters [facility] T.PROTEIN BODY FLUID 2023-03-21 20:15:00 [facility] 2023-03-21 20:15:00 [facility]/ANAEROBIC) [facility]DH TOTAL BODY FLUID 2023-03-21 20:15:00 David [facility] T.PROTEIN BODY FLUID 2023-03-21 20:15:00 David [facility] BODY FLUID 2023-03-21 20:15:00 Hernandez, [facility] CULTURE(AEROBIC/ANAEROBIC) Medic al Branch LDH TOTAL BODY FLUID 2023-03-21 20:15:00 David [facility] IR THORACENTESIS WITH 2023-03-21 19:50:00 [place], Yamilet Shelli Un iversity [facility] IR THORACENTESIS WITH 2023-03-21 19:50:00 [place], Yamilet Shelli [facility] MAGNESIUM 2023-03-21 17:02:00 Erik Jansen [facility] BASIC METABOLIC PANEL (NA, 2023-03-21 17:02:00 Erik Jansen [facility] K, CL, CO2, GLUCOSE, BUN, [facility] [place] CREATININE, CA) MAGNESIUM 2023-03-21 17:02:00 Erik Jansen [facility] BASIC METABOLIC PANEL (NA, 2023-03-21 17:02:00 Erik Jansen [facility] K, CL, CO2, GLUCOSE, BUN, [facility] CREATININE, CA) HB ECG ROUTINE & RHYTHM 2023-03-21 13:18:38 Erik Jansen [facility] HB ECG ROUTINE & RHYTHM 2023-03-21 13:18:38 Erik Jansen [facility] POCT GLUCOSE (AUTOMATED) 2023-03-21 12:56:00 Stefany Mckay Un [facility] POCT GLUCOSE (AUTOMATED) 2023-03-21 12:56:00 Stefany Mckay Un iv[facility]ly [facility] MAGNESIUM 2023-03-21 09:52:00 Erik Jansen [facility] HEPATIC FUNCTION PANEL 2023-03-21 09:52:00 Tim Sanchez [facility] ([id number]) (ALB,T.PRO,BILI [facility] T,BU/BC,ALT,AST,ALK PHOS) BASIC METABOLIC PANEL (NA, 2023-03-21 09:52:[address] [facility] K, CL, CO2, GLUCOSE, BUN, [facility] CREATININE, CA) CBC WITH DIFF 2023-03-21 09:52:00 Erik Jansen [facility] MAGNESIUM 2023-03-21 09:52:00 Erik Jansen [facility] HEPATIC FUNCTION PANEL 2023-03-21 09:52:00 Tim Sanchez [facility] ([id number]) (ALB,T.PRO,BILI [facility] T,BU/BC,ALT,AST,ALK PHOS) BASIC METABOLIC PANEL (NA, 2023-03-21 09:52:00 Erik Jansen [facility] K, CL, CO2, GLUCOSE, BUN, [facility] CREATININE, CA) CBC WITH DIFF 2023-03-21 09:52:00 Erik Jansen [facility] HB ECG ROUTINE & RHYTHM 2023-03-20 18:53:41 Erik Jansen [facility] HB ECG ROUTINE & RHYTHM 2023-03-20 18:53:41 Erik Jansne [facility] TROPONIN I 2023-03-20 16:17:00 Erik Jansen [facility] PROTHROMBIN TIME / INR 2023-03-20 16:17:00 Yamilet Kelly [facility] TROPONIN I 2023-03-20 16:17:00 Erik Jansen [facility] PROTHROMBIN TIME / INR 2023-03-20 16:17:00 Yamilet Kelly [facility] TRANSTHORACIC ECHO (TTE) 2023-03-20 12:40:20 Erik Jansen [facility] TRANSTHORACIC ECHO (TTE) 2023-03-20 12:40:20 Erik Jansen [facility] HB ECG ROUTINE & RHYTHM 2023-03-20 12:39:41 [facility] & RHYTHM 2023-03-20 12:39:41 [facility] BLOOD CULTURE SCREEN 2023-03-20 11:30:00 Amemily [facility] BLOOD CULTURE WORKUP 2023-03-20 11:30:00 Ameri, [facility] GRAM POSITIVE BLOOD 2023-03-20 11:30:00 Ameri, [facility] PATHOGENS DNA [facility] PROBE-ANAEROBIC BLOOD CULTURE SCREEN 2023-03-20 11:30:00 Ameri, [facility] BLOOD CULTURE WORKUP 2023-03-20 11:30:00 Ameri, [facility] GRAM POSITIVE BLOOD 2023-03-20 11:30:00 Ameri, [facility] PATHOGENS DNA [facility] PROBE-ANAEROBIC MAGNESIUM 2023-03-20 11:29:00 Erik Jansen [facility] TROPONIN I 2023-03-20 11:29:00 Erik Jansen [facility] BASIC METABOLIC PANEL (NA, 2023-03-20 11:29:[address] [facility] K, CL, CO2, GLUCOSE, BUN, [facility] CREATININE, CA) HIV 1/2 AG-AB WITH REFLEX 2023-03-20 11:29:00 Odilia Lao Un [facility] MAGNESIUM 2023-03-20 11:29:00 Erik Jansen [facility] TROPONIN I 2023-03-20 11:29:00 rEik Jansen [facility] BASIC METABOLIC PANEL (NA, 2023-03-20 11:29:00 Erik Jansen [facility] K, CL, CO2, GLUCOSE, BUN, [facility] CREATININE, CA) HIV 1/2 AG-AB WITH REFLEX 2023-03-20 11:29:00 Odilia Lao Un [facility] CBC WITH DIFF 2023-03-20 11:28:00 Erik Jansen [facility] CBC WITH DIFF 2023-03-20 11:28:[address] [facility] ABDOMEN PELVIS WO 2023-03-19 21:51:07 David [facility] CONTRAST [facility] CT ABDOMEN PELVIS WO 2023-03-19 21:51:07 Maday Hernandez [facility] CONTRAST [facility] TROPONIN I 2023-03-19 20:41:00 Erik Jansen [facility] URINE CULTURE 2023-03-19 20:41:00 Erik Jansen [facility] TROPONIN I 2023-03-19 20:41:00 [facility] URINE CULTURE 2023-03-19 20:41:00 [facility] URINE DRUG (IMMUNOASSAY) - 2023-03-19 19:05:[address] [facility] COMPREHENSIVE DRUG SCREEN [facility] URINALYSIS 2023-03-19 19:05:00 Bianka Marroquin [facility] GALV ONLY - URINE DRUG 2023-03-19 19:05:00 [facility] GALV ONLY - URINE DRUG 2023-03-19 19:05:00 [facility] - MDMA PANEL [facility] URINE DRUG (LCMSMS) - 2023-03-19 19:05:00 Bianka Marroquin [facility] SYNTHETIC OPIATES PANEL [facility] URINE DRUG (IMMUNOASSAY) - 2023-03-19 19:05:00 Karli Marroquin [facility] COMPREHENSIVE DRUG SCREEN [facility] [place] URINALYSIS 2023-03-19 19:05:00 [facility] GALV ONLY - URINE DRUG 2023-03-19 19:05:00 Bianka [facility] - LAURA PANEL [facility] GALV ONLY - URINE DRUG 2023-03-19 19:05:00 [facility] - MDMA PANEL [facility] URINE DRUG [facility] - 2023-03-19 19:05:00 [facility] SYNTHETIC OPIATES PANEL [facility] CT THORAX WO CONTRAST 2023-03-19 18:27:23 David [facility] CT THORAX WO CONTRAST 2023-03-19 18:27:23 David [facility] BLOOD CULTURE SCREEN 2023-03-19 17:26:00 David [facility] BLOOD CULTURE WORKUP 2023-03-19 17:26:00 David [facility] BLOOD CULTURE WORKUP 2023-03-19 17:26:00 David [facility] GRAM POSITIVE BLOOD 2023-03-19 17:26:00 David Maday [facility] PATHOGENS DNA [facility] [place] PROBE-ANAEROBIC BLOOD CULTURE SCREEN 2023-03-19 17:26:00 David [facility] BLOOD CULTURE WORKUP 2023-03-19 17:26:00 David [facility] BLOOD CULTURE WORKUP 2023-03-19 17:26:00 David [facility] GRAM POSITIVE BLOOD 2023-03-19 17:26:00 David [facility] PATHOGENS DNA [facility] [place] PROBE-ANAEROBIC SERUM DRUG (IMMUNOASSAY) - 2023-03-19 16:51:00 [facility] COMPREHENSIVE DRUG SCREEN [facility] LACTIC ACID WHOLE BLOOD 2023-03-19 16:51:00 Bianka Marroquin [facility] SERUM DRUG (IMMUNOASSAY) - 2023-03-19 16:51:00 Mad[facility] COMPREHENSIVE DRUG SCREEN [facility] LACTIC ACID WHOLE BLOOD 2023-03-19 16:51:00 Bianka Marroquin [facility] XR CHEST 1 VW 2023-03-19 14:11:00 Bianka Marroquin [facility] XR CHEST 1 VW 2023-03-19 14:11:00 Bianka Marroquin [facility] ACUTE CARE ARTERIAL BLOOD 2023-03-19 13:54:00 Stewart Marroquin [facility] GAS [facility] ACUTE CARE ARTERIAL BLOOD 2023-03-19 13:54:00 Stewart Marroquin [facility] GAS [facility] HB ECG ROUTINE & RHYTHM 2023-03-19 13:49:22 Bianka Marroquin [facility] HB ECG ROUTINE & RHYTHM 2023-03-19 13:49:22 Bianka Marroquin [facility] RHEUMATOID FACTOR 2023-03-19 13:31:00 Dany [facility] COMP. METABOLIC PANEL 2023-03-19 13:31:00 Bianka Marroquin [facility] ([id number]) [facility] TOTAL BETA HCG ASSAY 2023-03-19 13:31:00 Bianka Marroquin [facility] ETHANOL 2023-03-19 13:31:00 David [facility] HEPATITIS C VIRUS (HCV) BY 2023-03-19 13:31:00 Karli Marroquin [facility] QUANTITATIVE NAAT [facility] [facility] RHEUMATOID FACTOR 2023-03-19 13:31:00 Dany [facility] COMP. METABOLIC PANEL 2023-03-19 13:31:00 Bianka Marroquin [facility] ([id number]) [facility] TOTAL BETA HCG ASSAY 2023-03-19 13:31:00 Bianka Marroquin [facility] ETHANOL 2023-03-19 13:31:00 [facility] HEPATITIS C VIRUS (HCV) BY 2023-03-19 13:31:00 Karli Marroquin [facility] QUANTITATIVE NAAT [facility] LACTIC ACID WHOLE BLOOD 2023-03-19 13:12:00 Bianka Marroquin [facility] LACTIC ACID WHOLE BLOOD 2023-03-19 13:12:00 Bianka Marroquin [facility] PHOSPHORUS 2023-03-19 13:10:00 Bianka Marroquin [facility] MAGNESIUM 2023-03-19 13:10:00 Bianka Marroquin [facility] FERRITIN SERUM 2023-03-19 13:10:00 Bianka Marroquin [facility] THYROID STIMULATING 2023-03-19 13:10:00 Bianka Marroquin [facility] BASIC METABOLIC PANEL (NA, 2023-03-19 13:10:[address] [facility] K, CL, CO2, GLUCOSE, BUN, [facility] CREATININE, CA) IRON PANEL 2023-03-19 13:10:00 Bianka Marroquin [facility] CBC WITH DIFF 2023-03-19 13:10:00 Bianka Marroquin [facility] PHOSPHORUS 2023-03-19 13:10:00 Bianka Marroquin [facility] MAGNESIUM 2023-03-19 13:10:00 Bianka Marroquin [facility] FERRITIN SERUM 2023-03-19 13:10:00 Bianka Marroquin [facility] THYROID STIMULATING 2023-03-19 13:10:00 [facility] BASIC [facility]OLIC PANEL (NA, 2023-03-19 13:10:[address] [facility] K, CL, CO2, GLUCOSE, BUN, [facility] CREATININE, CA) IRON PANEL 2023-03-19 13:10:00 Bianka Marroquin [facility] CBC WITH DIFF 2023-03-19 13:10:00 Erik Jansen Bianka [facility] BASIC METABOLIC PANEL 2020-01-02 00:00:00 [facility] CBCA W/PLT & AUTO 2020-01-02 00:00:00 [facility] AMMONIA 2020-01-02 00:00:00 [facility] ALCOHOL 2020-01-01 00:00:00 [facility] AMMONIA 2020-01-01 00:00:00 [facility] CK 2020-01-01 00:00:00 [facility] CKMB 2020-01-01 00:00:00 [facility] MYOGLOBIN,BLOOD 2020-01-01 00:00:00 [facility] TROPONIN I 2020-01-01 00:00:00 [facility] CBCA W/PLT & AUTO 2019-12-31 00:00:00 [facility] COMPREHENSIVE METABOLIC 2019-12-31 00:00:00 [facility] UA COMPLETE W/CULTURE 2019-12-31 00:00:00 [facility] PROTIME 2019-12-31 00:00:00 [facility] PTT 2019-12-31 00:00:00 [facility] CARDIAC MARKERS PANEL (ER) 2019-12-31 00:00:00 [facility] AMYLASE 2019-12-31 00:00:00 [facility] LIPASE 2019-12-31 00:00:00 [facility] BLOOD CULTURE 2019-12-31 00:00:00 [facility] PROCALCITONIN 2019-12-31 00:00:00 [facility] LACTIC ACID 2019-12-31 00:00:00 [facility] URINE CULTURE 2019-12-31 00:00:00 [facility] AMMONIA 2019-12-31 00:00:00 [facility] ALCOHOL 2019-12-31 00:00:00 [facility] URINE DRUG 2019-12-31 00:00:00 [facility] CK 2019-12-31 00:00:00 [facility] CKMB 2019-12-31 00:00:00 [facility] MYOGLOBIN,BLOOD 2019-12-31 00:00:00 [facility] TROPONIN I 2019-12-31 00:00:[address] [facility] [address] BRAIN W/O CONTRAST 2019-12-31 00:00:00 [facility] CHEST 1 VIEW (AP) 2019-12-31 00:00:00 [facility] AMMONIA 2019-12-16 00:00:00 [facility] BASIC METABOLIC PANEL 2019-12-15 00:00:00 [facility] AMMONIA 2019-12-15 00:00:00 [facility] AMMONIA 2019-12-14 00:00:00 [facility] BASIC METABOLIC PANEL 2019-12-14 00:00:00 [facility] MAGNESIUM 2019-12-14 00:00:00 [facility] CBCA W/PLT & AUTO 2019-12-13 00:00:00 [facility] COMPREHENSIVE METABOLIC 2019-12-13 00:00:00 [facility] AMMONIA 2019-12-13 00:00:00 [facility] CBCA W/PLT & AUTO 2019-12-12 00:00:00 [facility] COMPREHENSIVE METABOLIC 2019-12-12 00:00:00 [facility] UA COMPLETE W/CULTURE 2019-12-12 00:00:00 [facility] PROTIME 2019-12-12 00:00:00 [facility] PTT 2019-12-12 00:00:00 [facility] BNP RAPID 2019-12-12 00:00:00 [facility] AMYLASE 2019-12-12 00:00:00 [facility] LIPASE 2019-12-12 00:00:00 [facility] AMMONIA 2019-12-12 00:00:00 [facility] LACTIC ACID 2019-12-12 00:00:00 [facility] URINE DRUG 2019-12-12 00:00:00 [facility] BLOOD CULTURE 2019-12-12 00:00:00 [facility] CARDIAC MARKERS PANEL (ER) 2019-12-12 00:00:00 [facility] WOUND CULTURE 2019-12-12 00:00:00 [facility] ALCOHOL 2019-12-12 00:00:00 [facility] CHEST 1 VIEW (AP) 2019-12-12 00:00:[address] [facility] [place] [address] ABD & PELVIS W CONTRAST 2019-12-12 00:00:00 [facility] CT BRAIN W/O CONTRAST 2019-12-12 00:00:00 [facility] CBCA W/PLT & AUTO 2019-04-27 00:00:00 [facility] COMPREHENSIVE METABOLIC 2019-04-27 00:00:00 [facility] AMYLASE 2019-04-27 00:00:00 [facility] LIPASE 2019-04-27 00:00:00 [facility] TYPE AND SCREEN 2019-04-27 00:00:00 [facility] PACKED CELLS (RBC) 2019-04-27 00:00:00 [facility] LACTIC ACID 2019-04-27 00:00:00 [facility] STOOL OCCULT BLOOD 2019-04-27 00:00:00 [facility] GASTRICULT 2019-04-27 00:00:00 [facility] PROTIME 2019-04-27 00:00:00 [facility] PTT 2019-04-27 00:00:00 [facility] FRESH FROZEN PLASMA 2019-04-27 00:00:00 [facility] ALCOHOL 2019-04-27 00:00:00 [facility] BASIC METABOLIC PANEL 2019-04-16 00:00:00 [facility] CBCA W/PLT & AUTO 2019-04-16 00:00:00 [facility] ERYTHROCYTE SEDIMENTATION 2019-04-16 00:00:00 [facility] AFT, SERUM,TUMOR MARKER* 2019-04-16 00:00:00 [facility] BASIC METABOLIC PANEL 2019-04-14 00:00:00 [facility] VANCOMYCIN TROUGH 2019-04-14 00:00:00 [facility] URINE CULTURE 2019-04-13 00:00:00 [facility] US ECHO GUIDANCE 2019-04-13 00:00:00 [facility] DRAIN[facility] OF [facility]IT[facility]AL 2019-04-13 00:00:00 [facility] CAVITY, PERCUTANEOUS Hospital APPROACH, DIAGN VANCOMYCIN TROUGH 2019-04-12 00:00:00 [facility] CBCA W/PLT & AUTO 2019-04-12 00:00:00 [facility] COMPREHENSIVE METABOLIC 2019-04-12 00:00:00 [facility] BLOOD CULTURE 2019-04-12 00:00:00 [facility] BASIC METABOLIC PANEL 2019-04-11 00:00:00 [facility] CBCA W/PLT & AUTO 2019-04-11 00:00:00 [facility] VANCOMYCIN TROUGH 2019-04-10 00:00:00 [facility] CBCA W/PLT & AUTO 2019-04-10 00:00:00 [facility] BASIC METABOLIC PANEL 2019-04-10 00:00:00 [facility] BLOOD CULTURE 2019-04-10 00:00:00 [facility] CBCA W/PLT & AUTO 2019-04-09 00:00:00 [facility] COMPREHENSIVE METABOLIC 2019-04-09 00:00:00 [facility] PACKED CELLS (RBC) 2019-04-09 00:00:00 [facility] STOOL OCCULT BLOOD 2019-04-09 00:00:00 [facility] TYPE AND SCREEN 2019-04-09 00:00:00 [facility] HEMOGLOBIN 2019-04-09 00:00:00 [facility] HEMATOCRIT 2019-04-09 00:00:00 [facility] TRANSFUSE NONAUT RED BLOOD 2019-04-09 00:00:00 [facility] CELLS IN PERIPH VEIN, PERC [facility] URINE CULTURE 2019-04-08 00:00:00 [facility] PROTIME 2019-04-08 00:00:00 [facility] PTT 2019-04-08 00:00:00 [facility] A1C 2019-04-08 00:00:00 [facility] LIPID PANEL 2019-04-08 00:00:00 [facility] THYROID STIMULATING 2019-04-08 00:00:00 [facility] BODY FLUID CULTURE 2019-04-08 00:00:00 [facility] BODY FLUID CELL COUNT 2019-04-08 00:00:00 [facility] W/DIFF Hospital US ECHO GUIDANCE 2019-04-08 00:00:00 [facility] PARACENTESIS [facility] DRAINAGE OF PERITONEAL 2019-04-08 00:00:00 [facility] CAVITY, PERCUTANEOUS Hospital APPROACH CBCA W/PLT & AUTO 2019-04-07 00:00:00 [facility] COMPREHENSIVE METABOLIC 2019-04-07 00:00:00 [facility] LACTIC ACID 2019-04-07 00:00:00 [facility] UA COMPLETE W/CULTURE 2019-04-07 00:00:00 [facility] BLOOD CULTURE 2019-04-07 00:00:00 [facility] HIV ANTIGEN/ANTIBODY 2019-04-07 00:00:00 [facility] CHEST 2 VIEWS 2019-04-07 00:00:[address] [facility] [address] ABD & PELVIS W CONTRAST 2019-04-07 00:00:00 [facility] Plan of Care Planned Activity Planned Date Details Comments Source Future Scheduled 2023-05-31 Screening for [facility] Test 22:33:20 malignant neoplasm of colon (procedure) [code = 467878528] Future Scheduled 2023-05-31 Screening for [facility] Test 22:33:20 malignant neoplasm of colon (procedure) [code = 285497931] Future Scheduled 2023-05-31 Screening for [facility] Test 22:33:20 malignant neoplasm of colon (procedure) [code = 010693937] Future Scheduled 2023-05-31 [facility]:33:20 (#1) [code = COVID-19 VACCINE (#1)] Future Scheduled 2023-05-31 Screening for [facility] Test 22:33:20 malignant neoplasm of cervix (procedure) [code = 387028938] Future Scheduled 2023-05-31 BREAST CANCER [facility] Test 22:33:20 SCREENING [code = BREAST CANCER SCREENING] Future Scheduled 2023-05-31 Screening for [facility] Test 22:33:20 malignant neoplasm of colon (procedure) [code = 029942996] Future Scheduled 2023-05-31 Screening for [facility] Test 22:33:20 malignant neoplasm of colon (procedure) [code = 304343948] Future Scheduled 2023-05-31 [facility] 22:33:20 (1 of 2) [code = SHINGLES VACCINES (1 of 2)] Future Scheduled 2023-05-31 INFLUENZA VACCINE [facility] 22:33:20 (#1) [code = INFLUENZA VACCINE (#1)] Future Scheduled 2023-05-31 Screening for [facility] Test 22:33:20 malignant neoplasm of colon (procedure) [code = 335362315] Future Scheduled 2023-05-31 Screening for [facility] Test 22:33:20 malignant neoplasm of colon (procedure) [code = 351938510] Future Scheduled 2023-05-31 Screening for [facility] Test 22:33:20 malignant neoplasm of colon (procedure) [code = 178381378] Future Scheduled 2023-05-31 COVID-19 [facility]INE [facility] 22:33:20 (#1) [code = COVID-19 VACCINE (#1)] Future Scheduled 2023-05-31 Screening for [facility] Test 22:33:20 malignant neoplasm of cervix (procedure) [code = 235872302] Future Scheduled 2023-05-31 BREAST CANCER [facility] Test 22:33:20 SCREENING [code = BREAST CANCER SCREENING] Future Scheduled 2023-05-31 Screening for [facility] Test 22:33:20 malignant neoplasm of colon (procedure) [code = 953045412] Future Scheduled 2023-05-31 Screening for [facility] Test 22:33:20 malignant neoplasm of colon (procedure) [code = 985476054] Future Scheduled 2023-05-31 [facility] 22:33:20 (1 of 2) [code = SHINGLES VACCINES (1 of 2)] Future Scheduled 2023-05-31 [facility]ZA [facility]ACCINE [facility] 22:33:20 (#1) [code = INFLUENZA VACCINE (#1)] Future Scheduled 2023-05-31 Screening for [facility] Test 22:33:20 malignant neoplasm of colon (procedure) [code = 504299980] Future Scheduled 2023-05-31 Screening for [facility] Test 22:33:20 malignant neoplasm of colon (procedure) [code = 353084414] Future Scheduled 2023-05-31 Screening for [facility] Test 22:33:20 malignant neoplasm of colon (procedure) [code = 675539464] Future Scheduled 2023-05-31 COVID-19 [facility] 22:33:20 (#1) [code = COVID-19 VACCINE (#1)] Future Scheduled 2023-05-31 Screening for [facility] Test 22:33:20 malignant neoplasm of cervix (procedure) [code = 692894875] Future Scheduled 2023-05-31 BREAST CANCER [facility] Test 22:33:20 SCREENING [code = BREAST CANCER SCREENING] Future Scheduled 2023-05-31 Screening for [facility] Test 22:33:20 malignant neoplasm of colon (procedure) [code = 124392168] Future Scheduled 2023-05-31 Screening for [facility] Test 22:33:20 malignant neoplasm of colon (procedure) [code = 164148764] Future Scheduled 2023-05-31 [facility]ES [facility] 22:33:20 (1 of 2) [code = SHINGLES VACCINES (1 of 2)] Future Scheduled 2023-05-31 [facility]ZA [facility]ACCINE [facility] 22:33:20 (#1) [code = INFLUENZA VACCINE (#1)] Future Scheduled 2023-03-09 Screening for [facility] Test 14:37:42 malignant neoplasm of colon (procedure) [code = 643112486] Future Scheduled 2023-03-09 Screening for [facility] Test 14:37:42 malignant neoplasm of colon (procedure) [code = 615202488] Future Scheduled 2023-03-09 Screening for [facility] Test 14:37:42 malignant neoplasm of colon (procedure) [code = 057737481] Future Scheduled 2023-03-09 COVID-[facility] 14:37:42 (#1) [code = COVID-19 VACCINE (#1)] Future Scheduled 2023-03-09 Screening for [facility] Test 14:37:42 malignant neoplasm of cervix (procedure) [code = 685165282] Future Scheduled 2023-03-09 BREAST CANCER [facility] Test 14:37:42 SCREENING [code = BREAST CANCER SCREENING] Future Scheduled 2023-03-09 Screening for [facility] Test 14:37:42 malignant neoplasm of colon (procedure) [code = 104857962] Future Scheduled 2023-03-09 Screening for [facility] Test 14:37:42 malignant neoplasm of colon (procedure) [code = 280604615] Future Scheduled 2023-03-09 [facility]ES [facility] 14[facility]37:42 (1 of 2) [code = SHINGLES VACCINES (1 of 2)] Future Scheduled 2023-03-09 [facility]ACCINE [facility] 14:37:42 [code = INFLUENZA VACCINE] Encounters Start End Encounter Admission Attending Care Care Encounter Source Date/Time Date/Time Type Type Clinicians Facility Department ID 2023-06-21 2023-06-21 Transition PARUL Huff 1.2.840.114 [id number] [facility] 00:00:00 00:00:00 of Care Darya EVANS 350.1.13.10 i ty of [place] 4.2.7.2.686 [facility] [id number] [facility] [address] 2023-06-16 2023-06-20 Inpatient X QUE [facility] MARKY [id number] Univers 09:41:00 16:42:00 MARIEL saleh [facility] 2023-06-16 2023-06-20 Hospital Kimber Verdugo [facility] 1.2.840.1 [id number] Univers 09:41:00 16:42:00 Encounter Mariel Grey 350.1.13.10 ity of [place] 4.2.7.2.686 [facility] [id number] [facility] [address] 2023-05-07 2023-05-07 Patient Bela MarroquinAlbino 1.2.840.114 [id number] Univers 00:00:00 00:00:00 Outreach Riky JACKSON[place] 350.1.13.10 [id number] [facility] [address] 2023-04-25 2023-04-25 [facility]phone [facility] 1.2.840.114 [id number] Univers 00:00:00 00:00:00 Khaled F HEALTH 350.1.13.10 [place] [id number] [facility] [address] OFFICE BUILDING 2023-04-19 2023-04-19 Transition LopezPARUL boyd 1.2.840.114 [id number] Univers 00:00:00 00:00:00 of Care Nafisa [place] 350.1.13.10 [id number] [address] 2023-04-19 2023-04-19 Patient PARUL Proctor 1.2.840.114 [id number] Univers 00:00:00 00:00:00 Outreach Mar JACK[place] 350.1.13.10 [id number] [address] 2023-04-19 2023-04-19 Telephone Ken [facility] 1.2.840.114 [id number] Univers 00:00:00 00:00:00 Khaled F HEALTH 350.1.13.10 [place] [id number] [facility] [address] OFFICE BUILDING 2023-04-17 2023-04-17 Patient PARUL Proctor 1.2.840.114 [id number] Univers 00:00:00 00:00:00 Outreach Mar J [place] 350.1.13.10 [id number] [address] 2023-04-162023-04-16 Patient PARUL Proctor 1.2.840.114 [id number] Univers 00:00:00 00:00:00 Outreach Mar Don NATHAN 350.1.13.10 [place] [id number] [facility] [address] 2023-04-04 2023-04-04 Orders Doctor DEANNE 1.2.840.114 [id number] Univers 00:00:00 00:00:00 Only Unassigned, JIGNESH 350.1.13.10 ity of [place] [facility] 4.2.7.2.686 [place] [id number] [facility] [address] 2023-03-29 2023-03-29 Transition PARUL Hernandez 1.2.840.114 [id number] Univers 00:00:00 00:00:00 of Care Milagros Angelo [place] 350.1.13.10 [place] [id number] [facility] [address] 2023-03-19 2023-03-28 Hospital Stefany Mckay 1.2.840. 114 [id number] Univers 06:14:00 16:05:00 Encounter Maday Hernandez 350.1.13.10 ity of [facility] 4.2.7.2.686 [place] [id number] [facility] [address] 2023-03-19 2023-03-28 Inpatient U [facility] [id number] Univers 06:14:00 16:05:00 ALED ity [facility] 2023-03-19 2023-03-28 Inpatient U [facility] [id number] Univers 06:14:00 16:05:00 [facility] 2023-03-25 2023-03-25 Surgery MALLORIE Chavez [id number] [id number] Univers 12:30:00 15:30:00 Afaq JIGNESH 350.1.13.10 it y of HOSPITAL 4.2.7.2.686 [place] [id number] [facility] [address] 2022-11-11 2022-11-11 Outpatient GC_CCW_Rami PRIV PRIV [id number] [facility] 00:00:00 00:00:00 luisito_Estefania [id number] Medica l 2019-12-31 2020-01-02 Discharged [place] [id number] [place] 14:14:00 13:39:00 Inpatient [facility] 2019-12-12 2019-12-16 Discharged [place] [id number] [place] 16:25:00 14:51:00 Inpatient [facility] 66 [facility] 2019-08-04 2019-08-04 Departed [facility] [id number] [place] 11:53:00 13:55:00 Emergency [facility] 44 [facility] 2019-04-27 2019-04-27 Departed DAVID, [facility] [id number] [place] 15:16:00 18:31:00 Emergency JANETTE 01 [facility] 2019-04-07 2019-04-16 Discharged ADE, [facility] H00 [id number] [place] 17:12:00 14:25:00 Inpatient HASEEB ABBA 69 ll e [facility] Results Test Description Test Time Test Comments Results Result Comments Source Lactic Acid Whole Blood 2023-06-17 04:03:21 Test Item Value Reference Range Interpretation Comme nts LACTIC ACID (test code = 8353951255) 2.10 mmol/L 0.50-2.20 Lab Interpretation (test code = 11511-7) [facility] [id number] 00:09:59 Test Item Value Reference Range Interpretation Comments LACTIC ACID (test code = 3.00 mmol/L 0.50-2.20 H 0072767609) Lab Interpretation (test code = Abnormal 23492-6) [facility] [id number] 21:52:06 Test Item Value Reference Range Interpretation Comments LACTIC ACID (test code = 2.87 mmol/L 0.50-2.20 H 2696698267) Lab Interpretation (test code = Abnormal 75285-8) [facility] GLUCOSE (AUTOMATED)2023-06-16 20:20:12 Test Item Value Reference Range Interpretation Comments POCT GLU (test code = 0931614034) 83 mg/dL 70-110 Lab Interpretation (test code = Normal 00273-1) [facility] [id number] 18:19:03 Test Item Value Reference Range Interpretation Comments LACTIC ACID (test code = 2.74 mmol/L 0.50-2.20 H 7993436593) Lab Interpretation (test code = Abnormal 01082-9) [facility] THRMPLAS [id number] 16:48:01 Test Item Value Reference Range Interpretation Comments APTT Patient (test 35 See_Comment [Automat ed code = 3173-2) message] The system which generated this result transmitted reference range : 23 - 38 Seconds . The reference range was not used to interpr et this result as normal/abnormal . YENI (test code = YENI) The [facility] patient population mean normal value for aPTT is 30 seconds. Lab Interpretation Normal (test code = 53777-1) [facility] Time / [id number] 16:46:05 Test Item Value Reference Range Interpretation Comments PROTIME PATIENT (test 16.8 See_Comment H [Auto mated message] code = 5964-2) The system wh ich generated this result transmitted ref erence range: 12.0 - 1 4.7 Seconds. The reference range was not used to int erpret this result as normal/abnormal . INR (test code = 6301-6) 1.4 Nor mal INR <1.1; Warfarin Therap eutic range 2.0 to 3. 0 or 2.5 to 3.5, dep ending upon the indica tions. Lab Interpretation (test Abnormal code = 40456-9) [facility] [id number] 16:41:04 Test Item Value Reference Range Interpretation Comments TROPONIN I (test code = 0.021 ng/mL <=0.034 [id number]) YENI (test code = YENI) Reference (Normal) [...] to patient's use of biotin. Lab Interpretation Normal (test code = 05021-9) [facility] [id number] 16:38:23 Test Item Value Reference Range Interpretation Comments NT-proBNP (test code = 1990 pg/mL <=125 H 35299-1) YENI (test code = YENI) Positive: Heart Failure Likely Lab Interpretation (test Abnormal code = 66516-9) [facility] WITH [id number] 16:30:25 Test Item Value Reference Range Interpretation Comments WBC (test code = 3.77 See_Comment L [Automated 6690-2) message] The sy stem which generated this result transmitted reference range : 4.30 - 11.10 10*3/?L. The reference range was not used to interpret this result as normal/abnormal . RBC (test code = 3.43 See_Comment L [Automated 789-8) message] The sy stem which generated this result transmitted reference range : 3.93 - 5.25 10*6/?L. The reference range was not used to interpret this result as normal/abnormal . HGB (test code = 9.7 g/dL 11.6-15.0 L 718-7) HCT (test code = 31.4 % 35.7-45.2 L 4544-3) MCV (test code = 91.5 fL 80.6-95.5 787-2) MCH (test code = 28.3 pg 25.9-32.8 785-6) MCHC (test code = 30.9 g/dL 31.6-35.1 L 786-4) RDW-SD (test code = 66.7 fL 39.0-49.9 H 21996-8) RDW-CV (test code = 19.9 % 12.0-15.5 H 788-0) PLT (test code = 97 See_Comment L [Automated 777-3) message] The sy stem which generated this result transmitted reference range : 166 - 358 10*3/ ?L. The reference r raimundo was not used to interpret this result as normal/abnormal . MPV (test code = 11.9 fL 9.5-12.9 80493-5) IPF % (test code = 6.1 % 1.3-7.7 Platelet count [id number]) measured by fluorescence method. NRBC/100 WBC (test 0.0 See_Comment [Automat ed code = 5228990824) message] The system which generated this result transmitted reference range : 0.0 - 10.0 /100 WBCs. The refer ence range was not u sed to interpret th is result as normal/abnormal . NRBC x10^3 (test code See_Comment [Auto mated = 8258927718) message] The s ystem which generated this result transmitted reference range : 10*3/?L. The reference range was not used to interpret this result as normal/abnormal . GRAN MAT (NEUT) % 63.6 % (test code = 770-8) IMM GRAN % (test code 0.30 % = 1754411043) LYMPH % (test code = 11.7 % 736-9) MONO % (test code = 18.8 % 5905-5) EOS % (test code = 3.2 % 713-8) BASO % (test code = 2.4 % 706-2) GRAN MAT x10^3(ANC) 2.40 10*3/uL 1.88-7.09 (test code = 5251006974) IMM GRAN x10^3 (test 0.00-0.06 code = 6152687096) LYMPH x10^3 (test code 0.44 10*3/uL 1.32-3.29 L = 731-0) MONO x10^3 (test code 0.71 10*3/uL 0.33-0.92 = 742-7) EOS x10^3 (test code = 0.12 10*3/uL 0.03-0.39 711-2) BASO x10^3 (test code 0.09 10*3/uL 0.01-0.07 H = 704-7) Lab Interpretation Abnormal (test code = 22265-1) [facility] Test Item Value Reference Range Interpretation Comments MAGNESIUM (test code = 1466055344) 2.0 mg/dL 1.7-2.4 Lab Interpretation (test code = Normal 67789-4) [facility] (19584)2023-06-16 16:29:23 Test Item Value Reference Range Interpretation Comments NA (test code = 137 mmol/L 135-145 4598986518) K (test code = 3.3 mmol/L 3.5-5.0 L 6597483863) CL (test code = 106 mmol/L 98-108 5133216270) CO2 TOTAL (test code = 19 mmol/L 23-31 L 7559668683) AGAP (test code = 12 2-16 6165344915) BUN (test code = 16 mg/dL 7-23 3123049795) GLUCOSE (test code = 89 mg/dL 70-110 0236054806) CREATININE (test code = 0.86 mg/dL 0.50-1.04 0558202008) TOTAL BILI (test code = 2.0 mg/dL 0.1-1.1 H 2594200418) CALCIUM (test code = 8.6 mg/dL 8.6-10.6 6637915883) T PROTEIN (test code = 8.3 g/dL 6.3-8.2 H 4059619928) ALBUMIN (test code = 3.4 g/dL 3.5-5.0 L 7960738485) ALK PHOS (test code = 133 U/L 34-122 H 5740529508) ALTv (test code = 27 U/L 5-35 1742-6) AST(SGOT) (test code = 60 U/L 13-40 H 9805092760) eGFR (test code = 80.9 mL/min/1.73m2 CKD-EPI e GFR 49646-5) (2020). Assumin g creatinine has been stable day-to-d ay for at least th ree months, the eGF R indicates Categ ory G2 (60 - 89 mL/min/1.73 m2) Lab Interpretation (test Abnormal code = 97825-3) [facility] CenterL[facility] Whole [id number] 16:00:06 Test Item Value Reference Range Interpretation Comments LACTIC ACID (test code = 2.57 mmol/L 0.50-2.20 H 6209658898) Lab Interpretation (test code = Abnormal 98382-8) [facility] GLUCOSE (AUTOMATED)2023-03-28 16:59:23 Test Item Value Reference Range Interpretation Comments POCT GLU (test code = 127 mg/dL 70-110 H Notifi ed Provider [id number]) Lab Interpretation (test Abnormal code = 21092-7) [facility] GLUCOSE (AUTOMATED)2023-03-28 13:17:43 Test Item Value Reference Range Interpretation Comments POCT GLU (test code = 129 mg/dL 70-110 H Notifi ed Provider [id number]) Lab Interpretation (test Abnormal code = 96818-1) [facility] GLUCOSE (AUTOMATED)2023-03-28 01:41:55 Test Item Value Reference Range Interpretation Comments POCT GLU (test code = 1735610737) 190 mg/dL 70-110 H Lab Interpretation (test code = Abnormal 65676-2) [facility] CenterProth[facility]bin Time / [id number] 01:34:59 Test Item Value Reference Range Interpretation Comments PROTIME PATIENT (test 12.8 See_Comment H [Auto mated message] code = 5964-2) The system [employer] generated this result transmitted ref erence range: 10.1 - 1 2.6 Seconds. The reference range was not used to int erpret this result as normal/abnormal . INR (test code = 6301-6) 1.1 Nor mal INR <1.1; Warfarin Therap eutic range 2.0 to 3. 0 or 2.5 to 3.5, dep ending upon the indica tions. Lab Interpretation (test Abnormal code = 06287-5) [facility] CenterHEPATITIS B SURFACE [id number] 01:08:25 Test Item Value Reference Range Interpretation Comments HBsAB (test code = Indeterminate 7694496122) HBsAb 7.60 mIU/mL Semi-Quantitative (test code = 9815838701) YENI (test code = Unable to determine if YENI) antibody to Hepatitis B Surface Antigen is present at levels consistent with immunity. ?Patient's immune status should be assessed with other clinical information and/or retesting in 4-6 weeks as clinically indicated. ?If any questions, please contact Clinical Chemistry Director exchange consultant at .Interpretati on: ?Hepatitis B Surface Antibody ? Negative - Patient is considered to be not immune to infection with HBV. ? ? Positive - Anti-HBs detected at greater than or equal to 12 mIU/mL. ?Patient is considered to be immune to infection with HBV. ? [facility] WITH [id number] 23:57:50 Test Item Value Reference Range Interpretation Comments WBC (test code = 5.73 See_Comment [Automated 3890-2) message] The sy stem which generated this [...] (test code = 61.7 fL 39.0-49.9 H 17089-8) RDW-CV (test code = 17.6 % 12.0-15.5 H 788-0) PLT (test code = 121 See_Comment L [Automated 777-3) message] The sy stem which generated this result transmitted reference range : 166 - 358 10*3/ ?L. The reference r raimundo was not used to interpret this result as normal/abnormal . MPV (test code = 11.4 fL 9.5-12.9 05636-5) NRBC/100 WBC (test 0.0 See_Comment [Automat ed code = 5707321932) message] The system which generated this result transmitted reference range : 0.0 - 10.0 /100 WBCs. The refer ence range was not u sed to interpret th is result as normal/abnormal . NRBC x10^3 (test code See_Comment [Auto mated = 5753101199) message] The s ystem which generated this result transmitted reference range : 10*3/?L. The reference range was not used to interpret this result as normal/abnormal . GRAN MAT (NEUT) % 73.7 % (test code = 770-8) IMM GRAN % (test code 0.50 % = 6661094434) LYMPH % (test code = 8.6 % 736-9) MONO % (test code = 13.6 % 5905-5) EOS % (test code = 1.7 % 713-8) BASO % (test code = 1.9 % 706-2) GRAN MAT x10^3(ANC) 4.22 10*3/uL 1.88-7.09 (test code = 7443985788) IMM GRAN x10^3 (test 0.03 10*3/uL 0.00-0.06 code = 8829595263) LYMPH x10^3 (test code 0.49 10*3/uL 1.32-3.29 L = 731-0) MONO x10^3 (test code 0.78 10*3/uL 0.33-0.92 = 742-7) EOS x10^3 (test code = 0.10 10*3/uL 0.03-0.39 711-2) BASO x10^3 (test code 0.11 10*3/uL 0.01-0.07 H = 704-7) Lab Interpretation Abnormal (test code = 69121-4) [facility] CenterHCV [id number] 23:43:25 Test Item Value Reference Range Interpretation Comments HCV Ab (test code = 85888-2) Negative HCV Semi-Quantitative (test code = 0.09 89257-2) [facility] CenterALPHA [id number] 23:29:28 Test Item Value Reference Range Interpretation Comments AFP (test code = 8.3 ng/mL <=7.5 H 5534051204) YENI (test code = YENI) Biotin has been reported to cause a negative bias, interpret results relative to patient's use of biotin. Lab Interpretation (test Abnormal code = 69013-0) [facility] CenterHEPATITIS B SURFACE [id number] 23:26:06 Test Item Value Reference Range Interpretation Comments HBsAg Semi-Quantitative (test code = 0.22 Negative 5195-3) [facility] CenterAMMONIA, [id number] 17:07:38 Test Item Value Reference Range Interpretation Comments AMMONIA (test code = 8990776636) 57 umol/L 9-33 H Lab Interpretation (test code = Abnormal 94198-2) [facility] CenterN-TERMINAL [id number] 12:24:38 Test Item Value Reference Range Interpretation Comments NT-proBNP (test code = 1500 pg/mL <=125 H 01251-5) YENI (test code = YENI) Positive: Heart Failure Likely Lab Interpretation (test Abnormal code = 34362-8) [facility] CenterCOMP. METABOLIC PANEL (57334)2023-03-27 12:13:42 Test Item Value Reference Range Interpretation Comments NA (test code = 135 mmol/L 135-145 3428218865) K (test code = 3.9 mmol/L 3.5-5.0 8844960722) CL (test code = 107 mmol/L 98-108 1910866302) CO2 TOTAL (test code = 19 mmol/L 23-31 L 5913923156) AGAP (test code = 9 2-16 3935674360) BUN (test code = 18 mg/dL 7-23 7929394477) GLUCOSE (test code = 90 mg/dL 70-110 6652359752) CREATININE (test code = 0.89 mg/dL 0.50-1.04 5898660329) TOTAL BILI (test code = 1.4 mg/dL 0.1-1.1 H 9415640280) CALCIUM (test code = 8.1 mg/dL 8.6-10.6 L 9074422630) T PROTEIN (test code = 7.0 g/dL 6.3-8.2 9961584140) ALBUMIN (test code = 3.0 g/dL 3.5-5.0 L 5187645758) ALK PHOS (test code = 151 U/L 34-122 H 7013345716) ALTv (test code = 35 U/L 5-35 1742-6) AST(SGOT) (test code = 74 U/L 13-40 H 0410171593) eGFR (test code = 66.3 mL/min/1.73m2 5852796232) YENI (test code = YENI) Association of [...] tests). Lab Interpretation Abnormal (test code = 42368-2) [facility] UNCONJUGATED/BILI [id number] 12:13:42 Test Item Value Reference Range Interpretation Comments BILI CONJ (test code = 9455590101) 0.0 mg/dL 0.0-0.3 BILI UNCON (test code = 3041698981) 0.6 mg/dL 0.1-1.1 Lab Interpretation (test code = Normal 64369-4) [facility] WITH [id number] 10:12:45 Test Item Value Reference Range Interpretation [...] (test code = 62.8 fL 39.0-49.9 H 83638-1) RDW-CV (test code = 18.0 % 12.0-15.5 H 788-0) PLT (test code = 109 See_Comment L [Automated 777-3) message] The sy stem which generated this result transmitted reference range : 166 - 358 10*3/ ?L. The reference r raimundo was not used to interpret this result as normal/abnormal . MPV (test code = 11.9 fL 9.5-12.9 25014-8) NRBC/100 WBC (test 0.0 See_Comment [Automat ed code = 2430333066) message] The system which generated this result transmitted reference range : 0.0 - 10.0 /100 WBCs. The refer ence range was not u sed to interpret th is result as normal/abnormal . NRBC x10^3 (test code See_Comment [Auto mated = 8731262237) message] The s ystem which generated this result transmitted reference range : 10*3/?L. The reference range was not used to interpret this result as normal/abnormal . GRAN MAT (NEUT) % 64.4 % (test code = 770-8) IMM GRAN % (test code 0.90 % = 1759579114) LYMPH % (test code = 13.2 % 736-9) MONO % (test code = 13.7 % 5905-5) EOS % (test code = 5.0 % 713-8) BASO % (test code = 2.8 % 706-2) GRAN MAT x10^3(ANC) 2.97 10*3/uL 1.88-7.09 (test code = 8441141886) IMM GRAN x10^3 (test 0.04 10*3/uL 0.00-0.06 code = 7639058801) LYMPH x10^3 (test code 0.61 10*3/uL 1.32-3.29 L = 731-0) MONO x10^3 (test code 0.63 10*3/uL 0.33-0.92 = 742-7) EOS x10^3 (test code = 0.23 10*3/uL 0.03-0.39 711-2) BASO x10^3 (test code 0.13 10*3/uL 0.01-0.07 H = 704-7) Lab Interpretation Abnormal (test code = 81830-2) [facility] CenterBLOOD CULTURE [id number] 13:01:42 Test Item Value Reference Range Interpretation Comments Blood Culture-Aerobic No organisms No growth Previo us (test code = 13219-2) isolated prelim inary verified result was Culture [...] Culture-Anaerobic isolated preliminar y (test code = 99881-6) verifi ed result was Culture In Progress [...] CDT Lab Interpretation Normal (test code = 16544-3) [facility] CenterBLOOD CULTURE [id number] 13:01:42 Test Item Value Reference Range Interpretation Comments Blood Culture-Aerobic No organisms No growth Previo us (test code = 29223-8) isolated prelim inary verified result was Culture In Progress on 03/20/2023 at 11 CDTPrevious preliminary verified result was No growth a t 24 hours on 03/21/2023 at 08 CDTPrevious preliminary verified result was No growth a t 48 hours on 03/22/2023 at 08 CDTPrevious preliminary verified result was No growth a t 72 hours on 03/23/2023 at 03 05 CDT Blood No organisms No growth Previous Culture-Anaerobic isolated preliminar y (test code = 38068-9) verifi ed result was Culture In Progress on 03/20/2023 at 11 CDTPrevious preliminary verified result was No growth a t 24 hours on 03/21/2023 at 08 CDTPrevious preliminary verified result was No growth a t 48 hours on 03/22/2023 at 08 CDTPrevious preliminary verified result was No growth a t 72 hours on 03/23/2023 at 08 01 CDT Lab Interpretation Normal (test code = 46368-2) [facility] CenterHEPATIC FUNCTION PANEL (15231) (ALB,T.PRO,BILI T,BU/BC,ALT,AST,ALK PHOS)2023-03-22 12:15:18 Test Item Value Reference Range Interpretation Comments TOTAL BILI (test code = 2478060999) 2.1 mg/dL 0.1-1.1 H BILI UNCON (test code = 9956499115) 1.2 mg/dL 0.1-1.1 H BILI CONJ (test code = 0887924286) 0.0 mg/dL 0.0-0.3 T PROTEIN (test code = 0086709381) 6.6 g/dL 6.3-8.2 ALBUMIN (test code = 7079561946) 2.9 g/dL 3.5-5.0 L ALK PHOS (test code = 4489978040) 119 U/L 34-122 ALTv (test code = 1742-6) 33 U/L 5-35 AST(SGOT) (test code = 2450039534) 51 U/L 13-40 H Lab Interpretation (test code = Abnormal 68214-1) [facility] CenterMAGNESIUM2023-08-18 12:15:18 Test Item Value Reference Range Interpretation Comments MAGNESIUM (test code = 3678699323) 1.9 mg/dL 1.7-2.4 Lab Interpretation (test code = Normal 88242-6) [facility] METABOLIC PANEL (NA, K, CL, CO2, GLUCOSE, BUN, CREATININE, CA)2023-03-22 12:15:18 Test Item Value Reference Range Interpretation Comments NA (test code = 135 mmol/L 135-145 6182458466) K (test code = 3.5 mmol/L 3.5-5.0 9404151693) CL (test code = 91 mmol/L 98-108 L 2229344958) CO2 TOTAL (test code = 35 mmol/L 23-31 H 9206046325) AGAP (test code = 9 2-16 2109414835) BUN (test code = 23 mg/dL 7-23 7597287008) GLUCOSE (test code = 111 mg/dL 70-110 H 1086604922) CREATININE (test code = 1.25 mg/dL 0.50-1.04 H 3300693086) CALCIUM (test code = 8.5 mg/dL 8.6-10.6 L 9628264562) eGFR (test code = 44.8 mL/min/1.73m2 7424273421) YENI (test code = YENI) Association of [...] tests). Lab Interpretation Abnormal (test code = 50666-7) [facility] CenterHEPAT[facility] FUNCTION PANEL (75024) (ALB,T.PRO,BILI T,BU/BC,ALT,AST,ALK PHOS)2023-03-22 12:15:18 Test Item Value Reference Range Interpretation Comments TOTAL BILI (test code = 2684465422) 2.1 mg/dL 0.1-1.1 H BILI UNCON (test code = 2697038931) 1.2 mg/dL 0.1-1.1 H BILI CONJ (test code = 5989409038) 0.0 mg/dL 0.0-0.3 T PROTEIN (test code = 9909091283) 6.6 g/dL 6.3-8.2 ALBUMIN (test code = 3269418004) 2.9 g/dL 3.5-5.0 L ALK PHOS (test code = 8471709390) 119 U/L 34-122 ALTv (test code = 1742-6) 33 U/L 5-35 AST(SGOT) (test code = 6195691984) 51 U/L 13-40 H Lab Interpretation (test code = Abnormal 73901-5) [facility] CenterMAGN[facility]UM2023-08-18 12:15:18 Test Item Value Reference Range Interpretation Comments MAGNESIUM (test code = 1381646154) 1.9 mg/dL 1.7-2.4 Lab Interpretation (test code = Normal 30188-7) [facility] CenterBASIC [facility]OL[facility] PANEL (NA, K, CL, CO2, GLUCOSE, BUN, CREATININE, CA)2023-03-22 12:15:18 Test Item Value Reference Range Interpretation Comments NA (test code = 135 mmol/L 135-145 5798107279) K (test code = 3.5 mmol/L 3.5-5.0 1160390388) CL (test code = 91 mmol/L 98-108 L 8205964721) CO2 TOTAL (test code = 35 mmol/L 23-31 H 0072742417) AGAP (test code = 9 2-16 7693436756) BUN (test code = 23 mg/dL 7-23 8031590551) GLUCOSE (test code = 111 mg/dL 70-110 H 5086700111) CREATININE (test code = 1.25 mg/dL 0.50-1.04 H 2707846866) CALCIUM (test code = 8.5 mg/dL 8.6-10.6 L 8097547745) eGFR (test code = 44.8 mL/min/1.73m2 2903479679) YENI (test code = YENI) Association of [...] tests). Lab Interpretation Abnormal (test code = 50511-4) [facility] (for use with Heparin Infusion)2023-03-22 11:04:17 Test Item Value Reference Range Interpretation Comments APTT Patient (test code 95 See_Comment H [Au tomated message] = 3173-2) The system [facility] generated this result transmitted ref erence range: 26 - 36 Seconds. The reference range was not used to int erpret this result as normal/abnormal . Lab Interpretation (test Abnormal code = 32545-5) [facility] (for use with Heparin Infusion)2023-03-22 11:04:17 Test Item Value Reference Range Interpretation Comments APTT Patient (test code 95 See_Comment H [Au tomated message] = 3173-2) The system [facility] generated this result transmitted ref erence range: 26 - 36 Seconds. The reference range was not used to int erpret this result as normal/abnormal . Lab Interpretation (test Abnormal code = 96717-7) [facility] WITH [id number] 11:00:10 Test Item Value Reference Range Interpretation [...] (test code = 56.0 fL 39.0-49.9 H 07167-8) RDW-CV (test code = 17.4 % 12.0-15.5 H 788-0) PLT (test code = 111 See_Comment L [Automated 777-3) message] The sy stem which generated this result transmitted reference range : 166 - 358 10*3/ ?L. The reference r raimundo was not used to interpret this result as normal/abnormal . MPV (test code = 12.0 fL 9.5-12.9 12251-6) NRBC/100 WBC (test 0.0 See_Comment [Automat ed code = 6499559052) message] The system which generated this result transmitted reference range : 0.0 - 10.0 /100 WBCs. The refer ence range was not u sed to interpret th is result as normal/abnormal . NRBC x10^3 (test code See_Comment [Auto mated = 9420216728) message] The s ystem which generated this result transmitted reference range : 10*3/?L. The reference range was not used to interpret this result as normal/abnormal . GRAN MAT (NEUT) % 72.0 % (test code = 770-8) IMM GRAN % (test code 0.60 % = 1248938168) LYMPH % (test code = 10.0 % 736-9) MONO % (test code = 13.1 % 5905-5) EOS % (test code = 3.0 % 713-8) BASO % (test code = 1.3 % 706-2) GRAN MAT x10^3(ANC) 4.99 10*3/uL 1.88-7.09 (test code = 7980250290) IMM GRAN x10^3 (test 0.04 10*3/uL 0.00-0.06 code = 3277462559) LYMPH x10^3 (test code 0.69 10*3/uL 1.32-3.29 L = 731-0) MONO x10^3 (test code 0.91 10*3/uL 0.33-0.92 = 742-7) EOS x10^3 (test code = 0.21 10*3/uL 0.03-0.39 711-2) BASO x10^3 (test code 0.09 10*3/uL 0.01-0.07 H = 704-7) Lab Interpretation Abnormal (test code = 98945-5) [facility] WITH [id number] 11:00:10 Test Item Value Reference Range Interpretation [...] (test code = 56.0 fL 39.0-49.9 H 06944-2) RDW-CV (test code = 17.4 % 12.0-15.5 H 788-0) PLT (test code = 111 See_Comment L [Automated 777-3) message] The sy stem which generated this result transmitted reference range : 166 - 358 10*3/ ?L. The reference r raimundo was not used to interpret this result as normal/abnormal . MPV (test code = 12.0 fL 9.5-12.9 06118-9) NRBC/100 WBC (test 0.0 See_Comment [Automat ed code = 6680866881) message] The system which generated this result transmitted reference range : 0.0 - 10.0 /100 WBCs. The refer ence range was not u sed to interpret th is result as normal/abnormal . NRBC x10^3 (test code See_Comment [Auto mated = 6346429827) message] The s ystem which generated this result transmitted reference range : 10*3/?L. The reference range was not used to interpret this result as normal/abnormal . GRAN MAT (NEUT) % 72.0 % (test code = 770-8) IMM GRAN % (test code 0.60 % = 9374786917) LYMPH % (test code = 10.0 % 736-9) MONO % (test code = 13.1 % 5905-5) EOS % (test code = 3.0 % 713-8) BASO % (test code = 1.3 % 706-2) GRAN MAT x10^3(ANC) 4.99 10*3/uL 1.88-7.09 (test code = 1831045419) IMM GRAN x10^3 (test 0.04 10*3/uL 0.00-0.06 code = 8671611034) LYMPH x10^3 (test code 0.69 10*3/uL 1.32-3.29 L = 731-0) MONO x10^3 (test code 0.91 10*3/uL 0.33-0.92 = 742-7) EOS x10^3 (test code = 0.21 10*3/uL 0.03-0.39 711-2) BASO x10^3 (test code 0.09 10*3/uL 0.01-0.07 H = 704-7) Lab Interpretation Abnormal (test code = 11982-6) [facility] (for use with Heparin Infusion)2023-03-22 04:44:55 Test Item Value Reference Range Interpretation Comments APTT Patient (test code See_Comment [Au tomated message] = 3173-2) The system [employer] generated this result transmitted ref erence range: 26 - 36 Seconds. The reference range was not used to int erpret this result as normal/abnormal . Lab Interpretation (test Abnormal code = 28717-4) [facility] (for use with Heparin Infusion)2023-03-22 04:44:55 Test Item Value Reference Range Interpretation Comments APTT Patient (test code See_Comment HH [Au tomated message] = 3173-2) The system [facility] generated this result transmitted ref erence range: 26 - 36 Seconds. The reference range was not used to int erpret this result as normal/abnormal . Lab Interpretation (test Abnormal code = 77249-2) [facility] [id number] 21:51:07 Test Item Value Reference Range Interpretation Comments TROPONIN I (test code = 0.069 ng/mL <=0.034 H 6869756975) YENI (test code = YENI) Reference (Normal) [...] biotin. Lab Interpretation Abnormal (test code = 10813-6) [facility] [id number] 21:51:07 Test Item Value Reference Range Interpretation Comments TROPONIN I (test code = 0.069 ng/mL <=0.034 H 7077145680) YENI (test code = YENI) Reference (Normal) [...] biotin. Lab Interpretation Abnormal (test code = 17812-5) [facility] (PT) / [id number] 21:45:49 Test Item Value Reference Range Interpretation Comments PROTIME PATIENT (test 14.3 See_Comment H [Auto mated message] code = 5964-2) The system [employer] generated this result transmitted ref erence range: 10.1 - 1 2.6 Seconds. The reference range was not used to int erpret this result as normal/abnormal . INR (test code = 6301-6) 1.3 Nor mal INR <1.1; Warfarin Therap eutic range 2.0 to 3. 0 or 2.5 to 3.5, dep ending upon the indica tions. Lab Interpretation (test Abnormal code = 16602-4) [facility]eraPTT[facility] 21:45:49 Test Item Value Reference Range Interpretation Comments APTT Patient (test code = 35 See_Comment [ Automated message] 3173-2) The system [facility] generated this result transmitted ref erence range: 26 - 36 Seconds. The re ference range was not u sed to interpret this result as normal/abnor mal. Lab Interpretation (test Normal code = 74246-3) [facility] CenterProth[facility] Time (PT) / [id number] 21:45:49 Test Item Value Reference Range Interpretation Comments PROTIME PATIENT (test 14.3 See_Comment H [Auto mated message] code = 5964-2) The system [employer] generated this result transmitted ref erence range: 10.1 - 1 2.6 Seconds. The reference range was not used to int erpret this result as normal/abnormal . INR (test code = 6301-6) 1.3 Nor mal INR <1.1; Warfarin Therap eutic range 2.0 to 3. 0 or 2.5 to 3.5, dep ending upon the indica tions. Lab Interpretation (test Abnormal code = 09899-8) [facility] 21:45:49 Test Item Value Reference Range Interpretation Comments APTT Patient (test code = 35 See_Comment [ Automated message] 3173-2) The system [facility] generated this result transmitted ref erence range: 26 - 36 Seconds. The re ference range was not u sed to interpret this result as normal/abnor mal. Lab Interpretation (test Normal code = 61555-3) [facility] (NA, K, CL, CO2, GLUCOSE, BUN, CREATININE, CA)2023-03-21 21:45:43 Test Item Value Reference Range Interpretation Comments NA (test code = 135 mmol/L 135-145 6655915398) K (test code = 3.4 mmol/L 3.5-5.0 L 2066305492) CL (test code = 86 mmol/L 98-108 L 2535373919) CO2 TOTAL (test code = 38 mmol/L 23-31 H 8166443761) AGAP (test code = 11 2-16 8009846203) BUN (test code = 21 mg/dL 7-23 3307118688) GLUCOSE (test code = 107 mg/dL 70-110 2157198801) CREATININE (test code = 1.13 mg/dL 0.50-1.04 H 8150946742) CALCIUM (test code = 9.4 mg/dL 8.6-10.6 2149402879) eGFR (test code = 50.4 mL/min/1.73m2 8491509485) YENI (test code = YENI) Association of [...] tests). Lab Interpretation Abnormal (test code = 52333-2) [facility] METABOLIC PANEL (NA, K, CL, CO2, GLUCOSE, BUN, CREATININE, CA)2023-03-21 21:45:43 Test Item Value Reference Range Interpretation Comments NA (test code = 135 mmol/L 135-145 2419189840) K (test code = 3.4 mmol/L 3.5-5.0 L [id number]) CL (test code = 86 mmol/L 98-108 L [id number]) CO2 TOTAL (test code = 38 mmol/L 23-31 H [id number]) AGAP (test code = 11 2-16 [id number]) BUN (test code = 21 mg/dL 7-23 6438283860) GLUCOSE (test code = 107 mg/dL 70-110 [id number]) CREATININE (test code = 1.13 mg/dL 0.50-1.04 H 9660291204) CALCIUM (test code = 9.4 mg/dL 8.6-10.6 [id number]) eGFR (test code = 50.4 mL/min/1.73m2 1540501499) YENI (test code = YENI) Association of [...] tests). Lab Interpretation Abnormal (test code = 56880-3) [facility] METABOLIC PANEL (NA, K, CL, CO2, GLUCOSE, BUN, CREATININE, CA)2023-03-21 17:33:41 Test Item Value Reference Range Interpretation Comments NA (test code = 134 mmol/L 135-145 L 6918336381) K (test code = 2.5 mmol/L 3.5-5.0 LL 5413125000) CL (test code = 96 mmol/L 98-108 L 3875107275) CO2 TOTAL (test code = 32 mmol/L 23-31 H 7706776708) AGAP (test code = 6 2-16 6561948157) BUN (test code = 18 mg/dL 7-23 1486648512) GLUCOSE (test code = 90 mg/dL 70-110 9701116222) CREATININE (test code = 0.87 mg/dL 0.50-1.04 5801745502) CALCIUM (test code = 7.8 mg/dL 8.6-10.6 L 2496938580) eGFR (test code = 68.1 mL/min/1.73m2 3783225428) YENI (test code = YENI) Association of [...] tests). Lab Interpretation Abnormal (test code = 68065-2) [facility] (NA, K, CL, CO2, GLUCOSE, BUN, CREATININE, CA)2023-03-21 17:33:41 Test Item Value Reference Range Interpretation Comments NA (test code = 134 mmol/L 135-145 L 7742343093) K (test code = 2.5 mmol/L 3.5-5.0 LL 2499947865) CL (test code = 96 mmol/L 98-108 L 8685937040) CO2 TOTAL (test code = 32 mmol/L 23-31 H 8611632345) AGAP (test code = 6 2-16 8156653588) BUN (test code = 18 mg/dL 7-23 9706309053) GLUCOSE (test code = 90 mg/dL 70-110 2860245682) CREATININE (test code = 0.87 mg/dL 0.50-1.04 1017525966) CALCIUM (test code = 7.8 mg/dL 8.6-10.6 L 4957415166) eGFR (test code = 68.1 mL/min/1.73m2 2792506450) YENI (test code = YENI) Association of [...] tests). Lab Interpretation Abnormal (test code = 23294-7) [facility] 17:31:28 Test Item Value Reference Range Interpretation Comments MAGNESIUM (test code = 6812605436) 1.9 mg/dL 1.7-2.4 Lab Interpretation (test code = Normal 22263-7) [facility] 17:31:28 Test Item Value Reference Range Interpretation Comments MAGNESIUM (test code = 9878991355) 1.9 mg/dL 1.7-2.4 Lab Interpretation (test code = Normal 70595-4) [facility] (55520[facility] (ALB,T.PRO,BILI T,BU/BC,ALT,AST,ALK PHOS)2023-03-21 17:12:46 Test Item Value Reference Range Interpretation Comments TOTAL BILI (test code = 5633728849) 2.3 mg/dL 0.1-1.1 H BILI UNCON (test code = 6896223491) 1.4 mg/dL 0.1-1.1 H BILI CONJ (test code = 5664715887) 0.0 mg/dL 0.0-0.3 T PROTEIN (test code = 5509445612) 6.8 g/dL 6.3-8.2 ALBUMIN (test code = 1143280231) 3.0 g/dL 3.5-5.0 L ALK PHOS (test code = 3792572470) 106 U/L 34-122 ALTv (test code = 1742-6) 34 U/L 5-35 AST(SGOT) (test code = 9388775225) 52 U/L 13-40 H Lab Interpretation (test code = Abnormal 86033-7) [facility] (32597) (ALB,T.PRO,BILI T,BU/BC,ALT,AST,ALK PHOS)2023-03-21 17:12:46 Test Item Value Reference Range Interpretation Comments TOTAL BILI (test code = 0651679041) 2.3 mg/dL 0.1-1.1 H BILI UNCON (test code = 5106419482) 1.4 mg/dL 0.1-1.1 H BILI CONJ (test code = 7670245804) 0.0 mg/dL 0.0-0.3 T PROTEIN (test code = 8496579944) 6.8 g/dL 6.3-8.2 ALBUMIN (test code = 2607934932) 3.0 g/dL 3.5-5.0 L ALK PHOS (test code = 3695340133) 106 U/L 34-122 ALTv (test code = 1742-6) 34 U/L 5-35 AST(SGOT) (test code = 3637362849) 52 U/L 13-40 H Lab Interpretation (test code = Abnormal 16383-2) [facility])2023-03-21 12:57:27 Test Item Value Reference Range Interpretation Comments POCT GLU (test code = 132 mg/dL 70-110 H Notifi ed Provider [id number]) Lab Interpretation (test Abnormal code = 66882-1) [facility] GLUCOSE (AUTOMATED)2023-03-21 12:57:27 Test Item Value Reference Range Interpretation Comments POCT GLU (test code = 132 mg/dL 70-110 H Notifi ed Provider [id number]) Lab Interpretation (test Abnormal code = 66732-1) [facility] (NA, K, CL, CO2, GLUCOSE, BUN, CREATININE, CA)2023-03-21 11:42:15 Test Item Value Reference Range Interpretation Comments NA (test code = 133 mmol/L 135-145 L 2882948371) K (test code = 2.7 mmol/L 3.5-5.0 LL 2811070427) CL (test code = 92 mmol/L 98-108 L 9042360177) CO2 TOTAL (test code = 31 mmol/L 23-31 6980314436) AGAP (test code = 10 2-16 3025037631) BUN (test code = 22 mg/dL 7-23 9363385141) GLUCOSE (test code = 80 mg/dL 70-110 4976546592) CREATININE (test code = 1.12 mg/dL 0.50-1.04 H 8076599978) CALCIUM (test code = 8.6 mg/dL 8.6-10.6 6216303275) eGFR (test code = 50.9 mL/min/1.73m2 5212719494) YENI (test code = YENI) Association of [...] tests). Lab Interpretation Abnormal (test code = 19054-6) [facility] METABOLIC PANEL (NA, K, CL, CO2, GLUCOSE, BUN, CREATININE, CA)2023-03-21 11:42:15 Test Item Value Reference Range Interpretation Comments NA (test code = 133 mmol/L 135-145 L 0909742468) K (test code = 2.7 mmol/L 3.5-5.0 LL 2666415177) CL (test code = 92 mmol/L 98-108 L 2545378294) CO2 TOTAL (test code = 31 mmol/L 23-31 7764746862) AGAP (test code = 10 2-16 8846059547) BUN (test code = 22 mg/dL 7-23 5354876309) GLUCOSE (test code = 80 mg/dL 70-110 0677638735) CREATININE (test code = 1.12 mg/dL 0.50-1.04 H 3094240447) CALCIUM (test code = 8.6 mg/dL 8.6-10.6 6338866088) eGFR (test code = 50.9 mL/min/1.73m2 4576678762) YENI (test code = YENI) Association of [...] tests). Lab Interpretation Abnormal (test code = 60707-4) [facility] Test Item Value Reference Range Interpretation Comments MAGNESIUM (test code = 0716708023) 1.5 mg/dL 1.7-2.4 L Lab Interpretation (test code = Abnormal 29239-0) [facility] 11:06:40 Test Item Value Reference Range Interpretation Comments MAGNESIUM (test code = 5184452537) 1.5 mg/dL 1.7-2.4 L Lab Interpretation (test code = Abnormal 06232-5) [facility] WITH [id number] 10:28:33 Test Item Value Reference Range Interpretation Comments WBC (test code = 6.90 See_Comment [Automated 1490-2) message] The sy stem which generated this result transmitted reference range : 4.30 - 11.10 10*3/?L. The reference range was not used to interpret this result as normal/abnormal . RBC (test code = 3.61 See_Comment L [Automated 251-8) message] The sy stem which generated this [...] (test code = 54.4 fL 39.0-49.9 H 15588-8) RDW-CV (test code = 17.1 % 12.0-15.5 H 788-0) PLT (test code = 108 See_Comment L [Automated 777-3) message] The sy stem which generated this result transmitted reference range : 166 - 358 10*3/ ?L. The reference r raimundo was not used to interpret this result as normal/abnormal . MPV (test code = 12.5 fL 9.5-12.9 04758-8) NRBC/100 WBC (test 0.0 See_Comment [Automat ed code = 4024513829) message] The system which generated this result transmitted reference range : 0.0 - 10.0 /100 WBCs. The refer ence range was not u sed to interpret th is result as normal/abnormal . NRBC x10^3 (test code See_Comment [Auto mated = 8326409675) message] The s ystem which generated this result transmitted reference range : 10*3/?L. The reference range was not used to interpret this result as normal/abnormal . GRAN MAT (NEUT) % 68.9 % (test code = 770-8) IMM GRAN % (test code 0.90 % = 3204710976) LYMPH % (test code = 11.9 % 736-9) MONO % (test code = 14.3 % 5905-5) EOS % (test code = 2.8 % 713-8) BASO % (test code = 1.2 % 706-2) GRAN MAT x10^3(ANC) 4.76 10*3/uL 1.88-7.09 (test code = 2384628069) IMM GRAN x10^3 (test 0.06 10*3/uL 0.00-0.06 code = 2436912081) LYMPH x10^3 (test code 0.82 10*3/uL 1.32-3.29 L = 731-0) MONO x10^3 (test code 0.99 10*3/uL 0.33-0.92 H = 742-7) EOS x10^3 (test code = 0.19 10*3/uL 0.03-0.39 711-2) BASO x10^3 (test code 0.08 10*3/uL 0.01-0.07 H = 704-7) Lab Interpretation Abnormal (test code = 87596-0) [facility] WITH [id number] 10:28:33 Test Item Value Reference Range Interpretation [...] (test code = 54.4 fL 39.0-49.9 H 17324-8) RDW-CV (test code = 17.1 % 12.0-15.5 H 788-0) PLT (test code = 108 See_Comment L [Automated 777-3) message] The sy stem which generated this result transmitted reference range : 166 - 358 10*3/ ?L. The reference r raimundo was not used to interpret this result as normal/abnormal . MPV (test code = 12.5 fL 9.5-12.9 64245-0) NRBC/100 WBC (test 0.0 See_Comment [Automat ed code = 3079280014) message] The system which generated this result transmitted reference range : 0.0 - 10.0 /100 WBCs. The refer ence range was not u sed to interpret th is result as normal/abnormal . NRBC x10^3 (test code See_Comment [Auto mated = 8027830373) message] The s ystem which generated this result transmitted reference range : 10*3/?L. The reference range was not used to interpret this result as normal/abnormal . GRAN MAT (NEUT) % 68.9 % (test code = 770-8) IMM GRAN % (test code 0.90 % = 0390245169) LYMPH % (test code = 11.9 % 736-9) MONO % (test code = 14.3 % 5905-5) EOS % (test code = 2.8 % 713-8) BASO % (test code = 1.2 % 706-2) GRAN MAT x10^3(ANC) 4.76 10*3/uL 1.88-7.09 (test code = 2364178471) IMM GRAN x10^3 (test 0.06 10*3/uL 0.00-0.06 code = 0164180895) LYMPH x10^3 (test code 0.82 10*3/uL 1.32-3.29 L = 731-0) MONO x10^3 (test code 0.99 10*3/uL 0.33-0.92 H = 742-7) EOS x10^3 (test code = 0.19 10*3/uL 0.03-0.39 711-2) BASO x10^3 (test code 0.08 10*3/uL 0.01-0.07 H = 704-7) Lab Interpretation Abnormal (test code = 63574-5) [facility] 1/2 AG-AB WITH [id number] 17:19:43 Test Item Value Reference Range Interpretation Comments HIV 0.12 Negative Semi-quantitative (test code = 84638-7) YENI (test code = Non-reactive for HIV-1 YENI) antigen and HIV-1/HIV-2 antibodies. ?No laboratory evidence of HIV infection. ?Repeat in 2-4 weeks if acute HIV infection is suspected. [facility] 1/2 AG-AB WITH [id number] 17:19:43 Test Item Value Reference Range Interpretation Comments HIV 0.12 Negative Semi-quantitative (test code = 17821-4) YENI (test code = Non-reactive for HIV-1 YENI) antigen and HIV-1/HIV-2 antibodies. ?No laboratory evidence of HIV infection. ?Repeat in 2-4 weeks if acute HIV infection is suspected. [facility] [id number] 17:07:38 Test Item Value Reference Range Interpretation Comments TROPONIN I (test code = 0.117 ng/mL <=0.034 H 3598262574) YENI (test code = YENI) Reference (Normal) [...] biotin. Lab Interpretation Abnormal (test code = 23480-4) [facility] [id number] 17:07:38 Test Item Value Reference Range Interpretation Comments TROPONIN I (test code = 0.117 ng/mL <=0.034 H 9049792231) YENI (test code = YENI) Reference (Normal) [...] biotin. Lab Interpretation Abnormal (test code = 64745-8) [facility] [id number] 13:37:24 Test Item Value Reference Range Interpretation Comments TROPONIN I (test code = 0.136 ng/mL <=0.034 H 3730138263) YENI (test code = YENI) Reference (Normal) [...] biotin. Lab Interpretation Abnormal (test code = 34390-6) [facility] [id number] 13:37:24 Test Item Value Reference Range Interpretation Comments TROPONIN I (test code = 0.136 ng/mL <=0.034 H 2955234812) YENI (test code = YENI) Reference (Normal) [...] biotin. Lab Interpretation Abnormal (test code = 32143-6) [facility] WITH [id number] 12:34:44 Test Item Value Reference Range Interpretation Comments WBC (test code = 6.85 See_Comment [Automated 2219-2) message] The sy stem which generated this result transmitted reference range : 4.30 - 11.10 10*3/?L. The reference range was not used to interpret this result as normal/abnormal . RBC (test code = 3.60 See_Comment L [Automated 843-3) message] The sy stem which generated this [...] (test code = 57.2 fL 39.0-49.9 H 66286-0) RDW-CV (test code = 17.2 % 12.0-15.5 H 788-0) PLT (test code = 78 See_Comment L [Automated 777-3) message] The sy stem which generated this result transmitted reference range : 166 - 358 10*3/ ?L. The reference r raimundo was not used to interpret this result as normal/abnormal . MPV (test code = 12.4 fL 9.5-12.9 67563-5) IPF % (test code = 9.7 % 1.3-7.7 H Platelet count 7827599567) measured by fluorescence method. NRBC/100 WBC (test 0.0 See_Comment [Automat ed code = 3305533715) message] The system which generated this result transmitted reference range : 0.0 - 10.0 /100 WBCs. The refer ence range was not u sed to interpret th is result as normal/abnormal . NRBC x10^3 (test code See_Comment [Auto mated = 7312190585) message] The s ystem which generated this result transmitted reference range : 10*3/?L. The reference range was not used to interpret this result as normal/abnormal . GRAN MAT (NEUT) % 76.0 % (test code = 770-8) IMM GRAN % (test code 1.00 % = 2288819925) LYMPH % (test code = 9.1 % 736-9) MONO % (test code = 10.7 % 5905-5) EOS % (test code = 2.2 % 713-8) BASO % (test code = 1.0 % 706-2) GRAN MAT x10^3(ANC) 5.21 10*3/uL 1.88-7.09 (test code = 1700902961) IMM GRAN x10^3 (test 0.07 10*3/uL 0.00-0.06 H code = 5481057396) LYMPH x10^3 (test code 0.62 10*3/uL 1.32-3.29 L = 731-0) MONO x10^3 (test code 0.73 10*3/uL 0.33-0.92 = 742-7) EOS x10^3 (test code = 0.15 10*3/uL 0.03-0.39 711-2) BASO x10^3 (test code 0.07 10*3/uL 0.01-0.07 = 704-7) ETHAN CELLS (test code 2+ See_Comment A [Auto mated = 4857-9) message] The sy stem which generated this result transmitted reference range : (none). The reference range was not used to interpret this result as normal/abnormal . Lab Interpretation Abnormal (test code = 50175-1) [facility] WITH [id number] 12:34:44 Test Item Value Reference Range Interpretation Comments WBC (test code = 6.85 See_Comment [Automated 8103-2) message] The sy stem which generated this result transmitted reference range : 4.30 - 11.10 10*3/?L. The reference range was not used to interpret this result as normal/abnormal . RBC (test code = 3.60 See_Comment L [Automated 430-8) message] The sy stem which generated this [...] (test code = 57.2 fL 39.0-49.9 H 12161-2) RDW-CV (test code = 17.2 % 12.0-15.5 H 788-0) PLT (test code = 78 See_Comment L [Automated 777-3) message] The sy stem which generated this result transmitted reference range : 166 - 358 10*3/ ?L. The reference r raimundo was not used to interpret this result as normal/abnormal . MPV (test code = 12.4 fL 9.5-12.9 47920-5) IPF % (test code = 9.7 % 1.3-7.7 H Platelet count 0444025123) measured by fluorescence method. NRBC/100 WBC (test 0.0 See_Comment [Automat ed code = 1506664832) message] The system which generated this result transmitted reference range : 0.0 - 10.0 /100 WBCs. The refer ence range was not u sed to interpret th is result as normal/abnormal . NRBC x10^3 (test code See_Comment [Auto mated = 3856282278) message] The s ystem which generated this result transmitted reference range : 10*3/?L. The reference range was not used to interpret this result as normal/abnormal . GRAN MAT (NEUT) % 76.0 % (test code = 770-8) IMM GRAN % (test code 1.00 % = 8484788381) LYMPH % (test code = 9.1 % 736-9) MONO % (test code = 10.7 % 5905-5) EOS % (test code = 2.2 % 713-8) BASO % (test code = 1.0 % 706-2) GRAN MAT x10^3(ANC) 5.21 10*3/uL 1.88-7.09 (test code = 6143828660) IMM GRAN x10^3 (test 0.07 10*3/uL 0.00-0.06 H code = 8105494528) LYMPH x10^3 (test code 0.62 10*3/uL 1.32-3.29 L = 731-0) MONO x10^3 (test code 0.73 10*3/uL 0.33-0.92 = 742-7) EOS x10^3 (test code = 0.15 10*3/uL 0.03-0.39 711-2) BASO x10^3 (test code 0.07 10*3/uL 0.01-0.07 = 704-7) ETHAN CELLS (test code 2+ See_Comment A [Auto mated = 6113-8) message] The sy stem which generated this result transmitted reference range : (none). The reference range was not used to interpret this result as normal/abnormal . Lab Interpretation Abnormal (test code = 19071-7) [facility] METABOLIC PANEL (NA, K, CL, CO2, GLUCOSE, BUN, CREATININE, CA)2023-03-20 12:27:07 Test Item Value Reference Range Interpretation Comments NA (test code = 135 mmol/L 135-145 5843444307) K (test code = 3.7 mmol/L 3.5-5.0 2309151690) CL (test code = 101 mmol/L 98-108 4061694972) CO2 TOTAL (test code = 23 mmol/L 23-31 1208828430) AGAP (test code = 11 2-16 2250962532) BUN (test code = 24 mg/dL 7-23 H 4115882514) GLUCOSE (test code = 83 mg/dL 70-110 3984901318) CREATININE (test code = 1.29 mg/dL 0.50-1.04 H 5127318032) CALCIUM (test code = 8.8 mg/dL 8.6-10.6 8997612095) eGFR (test code = 43.2 mL/min/1.73m2 3860653443) YENI (test code = YENI) Association of [...] tests). Lab Interpretation Abnormal (test code = 67922-5) [facility] (NA, K, CL, CO2, GLUCOSE, BUN, CREATININE, CA)2023-03-20 12:27:07 Test Item Value Reference Range Interpretation Comments NA (test code = 135 mmol/L 135-145 2605831833) K (test code = 3.7 mmol/L 3.5-5.0 9163587983) CL (test code = 101 mmol/L 98-108 3098841670) CO2 TOTAL (test code = 23 mmol/L 23-31 1085707981) AGAP (test code = 11 2-16 5566375072) BUN (test code = 24 mg/dL 7-23 H 9441218770) GLUCOSE (test code = 83 mg/dL 70-110 1101373805) CREATININE (test code = 1.29 mg/dL 0.50-1.04 H 0669738359) CALCIUM (test code = 8.8 mg/dL 8.6-10.6 7307504792) eGFR (test code = 43.2 mL/min/1.73m2 8342863050) YENI (test code = YENI) Association of [...] tests). Lab Interpretation Abnormal (test code = 11715-5) [facility] 12:17:19 Test Item Value Reference Range Interpretation Comments MAGNESIUM (test code = 4488521863) 1.6 mg/dL 1.7-2.4 L Lab Interpretation (test code = Abnormal 73856-5) [facility] 12:17:19 Test Item Value Reference Range Interpretation Comments MAGNESIUM (test code = 9313432740) 1.6 mg/dL 1.7-2.4 L Lab Interpretation (test code = Abnormal 32746-7) [facility] CenterL[facility] Whole [id number] 17:04:19 Test Item Value Reference Range Interpretation Comments LACTIC ACID (test code = 2.35 mmol/L 0.50-2.20 H 4288811529) Lab Interpretation (test code = Abnormal 01096-6) [facility] CenterL[facility] Whole [id number] 17:04:19 Test Item Value Reference Range Interpretation Comments LACTIC ACID (test code = 2.35 mmol/L 0.50-2.20 H 0546194666) Lab Interpretation (test code = Abnormal 56145-7) [facility] CenterFerritin [id number] 15:11:49 Test Item Value Reference Range Interpretation Comments FERRITIN (test code = 94.0 ng/mL 11.0-264.0 6426375849) YENI (test code = YENI) Biotin has been reported to cause a negative bias, interpret results relative to patient's use of biotin. Lab Interpretation (test Normal code = 28653-7) [facility] CenterFer[facility]in [id number] 15:11:49 Test Item Value Reference Range Interpretation Comments FERRITIN (test code = 94.0 ng/mL 11.0-264.0 9829349496) YENI (test code = YENI) Biotin has been reported to cause a negative bias, interpret results relative to patient's use of biotin. Lab Interpretation (test Normal code = 51932-1) [id number] 14:37:02 Test Item Value Reference Range Interpretation Comments IRON (test code = 2660203459) 92 ug/dL 50-160 TIBC (test code = 1022058938) 317 ug/dL 250-410 % FE SAT (test code = 2519318272) 29 % 20-50 Lab Interpretation (test code = Normal 45740-3) [facility] CenterIron [id number] 14:37:02 Test Item Value Reference Range Interpretation Comments IRON (test code = 6334093275) 92 ug/dL 50-160 TIBC (test code = 1007797766) 317 ug/dL 250-410 % FE SAT (test code = 5857478093) 29 % 20-50 Lab Interpretation (test code = Normal 59993-4) [facility] CenterMagnesium2023-08-15 14:27:39 Test Item Value Reference Range Interpretation Comments MAGNESIUM (test code = 3910412058) 1.7 mg/dL 1.7-2.4 Lab Interpretation (test code = Normal 79617-3) [facility] CenterPhosphorus2023-08-15 14:27:39 Test Item Value Reference Range Interpretation Comments PHOSPHORUS (test code = 5248656108) 4.2 mg/dL 2.5-5.0 Lab Interpretation (test code = Normal 95241-8) [facility] CenterB[facility] (NA, K, CL, CO2, GLUCOSE, BUN, CREATININE, CA)2023-03-19 14:27:39 Test Item Value Reference Range Interpretation Comments NA (test code = 136 mmol/L 135-145 1846933220) K (test code = 4.4 mmol/L 3.5-5.0 Slight 4397474965) hemolysis CL (test code = 107 mmol/L 98-108 0309874184) CO2 TOTAL (test code 18 mmol/L 23-31 L = 5306427168) AGAP (test code = 11 2-16 8434360784) BUN (test code = 20 mg/dL 7-23 Slight 6225712864) hemolysis GLUCOSE (test code = 86 mg/dL 70-110 2005247735) CREATININE (test code 1.28 mg/dL 0.50-1.04 H = 5027757944) CALCIUM (test code = 8.1 mg/dL 8.6-10.6 L 0282467381) eGFR (test code = 43.6 mL/min/1.73m2 7698672794) YENI (test code = YENI) Association of [...] tests). Lab Interpretation Abnormal (test code = 46987-5) [facility]2023-08-15 14:27:39 Test Item Value Reference Range Interpretation Comments MAGNESIUM (test code = 3895406496) 1.7 mg/dL 1.7-2.4 Lab Interpretation (test code = Normal 51400-2) [facility]2023-08-15 14:27:39 Test Item Value Reference Range Interpretation Comments PHOSPHORUS (test code = 1843241106) 4.2 mg/dL 2.5-5.0 Lab Interpretation (test code = Normal 34888-3) [facility] (NA, K, CL, CO2, GLUCOSE, BUN, CREATININE, CA)2023-03-19 14:27:39 Test Item Value Reference Range Interpretation Comments NA (test code = 136 mmol/L 135-145 1537381238) K (test code = 4.4 mmol/L 3.5-5.0 Slight 7021659258) hemolysis CL (test code = 107 mmol/L 98-108 4539656918) CO2 TOTAL (test code 18 mmol/L 23-31 L = 0173895969) AGAP (test code = 11 2-16 6376896761) BUN (test code = 20 mg/dL 7-23 Slight 6515539074) hemolysis GLUCOSE (test code = 86 mg/dL 70-110 6305667195) CREATININE (test code 1.28 mg/dL 0.50-1.04 H = 9912322099) CALCIUM (test code = 8.1 mg/dL 8.6-10.6 L 0313032350) eGFR (test code = 43.6 mL/min/1.73m2 3644236642) YENI (test code = YENI) Association of [...] tests). Lab Interpretation Abnormal (test code = 73812-7) [facility] Arterial Blood Gas.2023-03-19 14:07:41 Test Item Value Reference Range Interpretation Comments PH (test code = 2) 7.43 7.35-7.45 PCO2 (test code = 24 See_Comment L [Automate d message] 7546868857) The system [facility] generated this result transmitted ref erence range: 35 - 45 mmHg. The reference r raimundo was not used to interpret this result as normal/abnor mal. PO2 (test code = 68 See_Comment L [Automated message] 6740470622) The system [facility] generated this result transmitted ref erence range: 80 - 100 mmHg. The reference r raimundo was not used to interpret this result as normal/abnor mal. HCO3 (test code = 15 See_Comment L [Automate d message] 8241428435) The system [facility] generated this result transmitted ref erence range: 22 - 26 mEq/L. The reference r raimundo was not used to interpret this result as normal/abnor mal. BE (test code = -7.5 See_Comment L [Automated message] 1313226314) The system [facility] generated this result transmitted ref erence range: -3.0 - 3 .0 mEq/L. The refe rence range was not u sed to interpret this result as normal/abnor mal. Lab Interpretation (test Abnormal code = 00495-3) [facility] Arterial Blood Gas.2023-03-19 14:07:41 Test Item Value Reference Range Interpretation Comments PH (test code = 2) 7.43 7.35-7.45 PCO2 (test code = 24 See_Comment L [Automate d message] [id number]) The system [facility] generated this result transmitted ref erence range: 35 - 45 mmHg. The reference r raimundo was not used to interpret this result as normal/abnor mal. PO2 (test code = 68 See_Comment L [Automated message] [id number]) The system [facility] generated this result transmitted ref erence range: 80 - 100 mmHg. The reference r raimundo was not used to interpret this result as normal/abnor mal. HCO3 (test code = 15 See_Comment L [Automate d message] [id number]) The system [facility] generated this result transmitted ref erence range: 22 - 26 mEq/L. The reference r raimundo was not used to interpret this result as normal/abnor mal. BE (test code = -7.5 See_Comment L [Automated message] [id number]) The system [facility] generated this result transmitted ref erence range: -3.0 - 3 .0 mEq/L. The refe rence range was not u sed to interpret this result as normal/abnor mal. Lab Interpretation (test Abnormal code = 86777-4) [facility] Mbsyv3172-01-40 13:22:49 Test Item Value Reference Range Interpretation Comments LACTIC ACID (test code = 2.20 mmol/L 0.50-2.20 [id number]) Lab Interpretation (test code = Normal 45443-9) [facility] Mynfq0746-50-92 13:22:49 Test Item Value Reference Range Interpretation Comments LACTIC ACID (test code = 2.20 mmol/L 0.50-2.20 [id number]) Lab Interpretation (test code = Normal 72647-5) [facility] Blood Amaxp2266-07-43 03:50:00 Test Item Value Reference Range Interpretation Comments White Blood Count (test code = 6690-2) 3.1 4.1-12.9 [facility] Cktku9593-42-52 03:50:00 Test Item Value Reference Range Interpretation Comments Red Blood Count (test code = 789-8) 2.63 3.64-5.20 [facility]Hemoglobin2020-05-30 03:50:00 Test Item Value Reference Range Interpretation Comments Hemoglobin (test code = 718-7) 8.1 10.6-15.6 [facility]Hematocrit2020-05-30 03:50:00 Test Item Value Reference Range Interpretation Comments Hematocrit (test code = 66611-8) 25.3 32.0-45.9 [facility] Corpuscular Lkydjo7439-94-55 03:50:00 Test Item Value Reference Range Interpretation Comments Mean Corpuscular Volume (test code = 96.3 74.6-98.2 33924-5) [facility] Corpuscular Hcedruxknp5514-10-12 03:50:00 Test Item Value Reference Range Interpretation Comments Mean Corpuscular Hemoglobin (test code 30.9 24.3-33.8 = 16161-5) [facility] Corpuscular Hgb Concent Lcij0531-22-93 03:50:00 Test Item Value Reference Range Interpretation Comments Mean Corpuscular Hgb Concent Diff (test 32.0 32.0-36.0 code = 52431-1) [facility] Cell Distribution Dcegf9345-07-20 03:50:00 Test Item Value Reference Range Interpretation Comments Red Cell Distribution Width (test code 18.1 11.4-16.3 = 92241-3) 1+ ANISOCYTOSISAd[facility] TexasPlatelet Dbtss4015-98-52 03:50:00 Test Item Value Reference Range Interpretation Comments Platelet Count (test code = 777-3) 129 168-441 [facility] Platelet Iarthq8340-16-04 03:50:00 Test Item Value Reference Range Interpretation Comments Mean Platelet Volume (test code = 9.1 6.8-10.2 53761-1) [facility] TexasGranulocytes (%)2020-01-02 03:50:00 Test Item Value Reference Range Interpretation Comments Granulocytes (%) (test code = 54815-9) 69.1 39.8-78.1 [facility] TexasLymphocytes %2020-01-02 03:50:00 Test Item Value Reference Range Interpretation Comments Lymphocytes % (test code = 736-9) 10.6 14.1-47.6 [facility] HospitalMonocytes %2020-01-02 03:50:00 Test Item Value Reference Range Interpretation Comments Monocytes % (test code = 5905-5) 11.6 3.8-11.6 [facility] HospitalEosinophils %2020-01-02 03:50:00 Test Item Value Reference Range Interpretation Comments Eosinophils % (test code = 713-8) 6.5 0.6-7.3 [facility]ophils %2020-01-02 03:50:00 Test Item Value Reference Range Interpretation Comments Basophils % (test code = 91333-3) 2.2 0.0-2.0 [facility] TexasGranulocytes #2020-01-02 03:50:00 Test Item Value Reference Range Interpretation Comments Granulocytes # (test code = 85499-5) 2.2 1.6-10.1 [facility] TexasLymphocytes #2020-01-02 03:50:00 Test Item Value Reference Range Interpretation Comments Lymphocytes # (test code = 96843-9) 0.3 0.6-6.1 [facility] TexasMonocytes #2020-01-02 03:50:00 Test Item Value Reference Range Interpretation Comments Monocytes # (test code = 742-7) 0.4 0.2-1.5 [facility] HospitalEosinophils #2020-01-02 03:50:00 Test Item Value Reference Range Interpretation Comments Eosinophils # (test code = 711-2) 0.2 0.0-0.9 [facility] TexasBasophils #2020-01-02 03:50:00 Test Item Value Reference Range Interpretation Comments Basophils # (test code = 50820-3) 0.1 0.0-0.2 [facility] TexasManual Fuafcuujlkcn2637-22-27 03:50:00 Test Item Value Reference Range Interpretation Comments Manual Differential (test code = Manual NO Differential) [facility] Vpyyq6922-38-46 03:50:00 Test Item Value Reference Range Interpretation Comments Sodium Level (test code = 2951-2) 141 135-144 [facility] TexasPotassium Sqekp1340-56-34 03:50:00 Test Item Value Reference Range Interpretation Comments Potassium Level (test code = 2823-3) 2.5 3.5-5.1 Critical Result S_K:2.5 Called to and read back by: ISRAEL ROJAS at: 01/02/2020 06:19:53 by:SUSI PinedaCarl R. Darnall [facility] Medical CenterChloride Level 2020-01-02 03:50:00 Test Item Value Reference Range Interpretation Comments Chloride Level (test code = 2075-0) 125 101-111 [facility] TexasCarbon Dioxide Utpws2425-92-11 03:50:00 Test Item Value Reference Range Interpretation Comments Carbon Dioxide Level (test code = 2027-9) [facility] TexasAnion Quw5368-45-77 03:50:00 Test Item Value Reference Range Interpretation Comments Anion Gap (test code = 51294-2) 6.5 10-20 [facility] TexasGlucose Eqdfd8455-65-92 03:50:00 Test Item Value Reference Range Interpretation Comments Glucose Level (test code = 2345-7) 90 65-99 Prediabetes 100 to 125 mg/dlDiabetes 126 mg/dl or higher Prediabetes refers to individuals with plasma glucose levelsintermediate between those considered normal and thoseconsidered diabetic and is also referred to as impairedglucose tolerance (IGT) or impaired fasting glucose (IFG). [facility] TexasBlood Urea Qxrenqrj9201-19-59 03:50:00 Test Item Value Reference Range Interpretation Comments Blood Urea Nitrogen (test code = 03-30 3094-0) [facility] TexasCreatinine2020-05-30 03:50:00 Test Item Value Reference Range Interpretation Comments Creatinine (test code = 2160-0) 0.5 0.44-1.00 [facility] TexasEGFR Izvx7272-17-51 03:50:00 Test Item Value Reference Range Interpretation Comments EGFR Note (test code = 21148-9) 101.4 63.8-143.2 eGFR (Estimated Glomerular Filtration Rate) eGFR calculation value obtained using the [facility] HospitalQuadratic (Q) equation. The reportable reference range isrecommended to be greater than 60 ml/min/1.73m. This is anestimation of the patient's GFR and clinical correlation isrecommended. This eGFR calculation does not account for race. This resultmay differ from other equations available. [facility] TexasCalcium Iygdh5569-66-14 03:50:00 Test Item Value Reference Range Interpretation Comments Calcium Level (test code = 29671-1) 7.2 8.9-10.3 [facility] TexasAmmonia2020-05-30 03:50:00 Test Item Value Reference Range Interpretation Comments Ammonia (test code = 63244-0) 90 11-35 [facility] TexasCreatine Ewkefp4157-66-90 02:59:00 Test Item Value Reference Range Interpretation Comments Creatine Kinase (test code = 2157-6) 309 38-234 [facility] TexasCreatine Kinase EP6163-43-86 02:59:00 Test Item Value Reference Range Interpretation Comments Creatine Kinase MB (test code = 5.90 0.6-6.3 60244-9) [facility] TexasTroponin K6205-87-63 02:59:00 Test Item Value Reference Range Interpretation Comments Troponin I (test code = 73285-3) 0.02 0.00-0.03 Troponin I-Interpretation Reference : <0.03 [...] 3. Serial sampling is critical for accurate diagnosis.[facility] TexasMyoglobin 2020-01-01 02:59:00 Test Item Value Reference Range Interpretation Comments Myoglobin (test code = 2639-3) 91 14.3-65.8 [facility] TexasAlcohols2020-05-29 02:59:00 Test Item Value Reference Range Interpretation Comments Alcohols (test code = 5643-2) < 5 0-5 [facility] TexasLactic Acid Chmxs3740-75-64 22:19:00 Test Item Value Reference Range Interpretation Comments Lactic Acid Level (test code = 2524-7) 1.9 0.5-2.0 [facility] TexasUrine Ofqtgfv5662-07-69 15:16:00 Test Item Value Reference Range Interpretation Comments Urine Culture (test code = ESCHERICHIA COLI 630-4) [facility] TexasAspartate Amino Transf (AST/SGOT)2019-12-31 14:50:00 Test Item Value Reference Range Interpretation Comments Aspartate Amino Transf (AST/SGOT) (test 78 15-41 code = 1920-8) [facility] TexasGlobulin2020-05-28 14:50:00 Test Item Value Reference Range Interpretation Comments Globulin (test code = 91724-2) 4.4 2.3-3.5 [facility] TexasAlbumin/Globulin Owrpm6504-27-31 14:50:00 Test Item Value Reference Range Interpretation Comments Albumin/Globulin Ratio (test code = 0.5 1.2-2.2 1759-0) [facility] TexasAmylase Lcqnz6351-11-77 14:50:00 Test Item Value Reference Range Interpretation Comments Amylase Level (test code = 1798-8) 81 36-128 [facility] TexasLipase2020-05-28 14:50:00 Test Item Value Reference Range Interpretation Comments Lipase (test code = 3040-3) 18 22-51 [facility] TexasHguxczvdXurizkrduwlqw7144-67-49 14:50:00 Test Item Value Reference Range Interpretation Comments Procalcitonin (test code = 54225-3) 0.10 0-0.49 PROCALCITONIN <0.50 ng/mL Systemic infection is not likely. Local bacterial infection is possible. PROCALCITONIN >0.50-2.00 ng/mL Systemic infection is possible. PROCALCITONIN >2.00 ng/mL Systemic infection is likely, unless other causes are known PROCALCITONIN >10.00 ng/mL Critical systemic inflammatory response, most likely due to bacterial sepsis.[facility] TexasProthrombin Pefd7677-29-07 14:50:00 Test Item Value Reference Range Interpretation Comments Prothrombin Time (test code = 5964-2) 15.1 10.0-12.9 [facility] TexasINR International Normalized Gqysu3077-25-43 14:50:00 Test Item Value Reference Range Interpretation [...] Thrombosis and Antiphospholipid syndrome Prevention of recurrent SD Sixth ACCP Consensus Conference on Antithrombotic Therapy,Chest 2001; 119:Supplement 8-21.[facility] TexasActivated Partial Thromboplast Hhrc1039-43-64 14:50:00 Test Item Value Reference Range Interpretation Comments Activated Partial Thromboplast Time 37.8 25.1-36.5 (test code = 3173-2) [facility] TexasAlbumin2020-05-28 14:50:00 Test Item Value Reference Range Interpretation Comments Albumin (test code = 1751-7) 2.4 3.5-5.0 [facility] Nvvhghtei9744-46-29 14:50:00 Test Item Value Reference Range Interpretation Comments Total Bilirubin (test code = 1975-2) 1.6 0.2-1.2 [facility] TexasAlkaline Bpdbekeqjsi2292-08-42 14:50:00 Test Item Value Reference Range Interpretation Comments Alkaline Phosphatase (test code = 118 32-91 6768-6) [facility] Ablfdkf9789-49-91 14:50:00 Test Item Value Reference Range Interpretation Comments Total Protein (test code = 2885-2) 6.8 6.5-8.1 [facility] TexasAlanine Aminotransferase (ALT/SGPT)2019-12-31 14:50:00 Test Item Value Reference Range Interpretation Comments Alanine Aminotransferase (ALT/SGPT) 31 7-55 (test code = 1742-6) [facility] Cannabinoids Yunkhz5228-73-68 14:40:00 Test Item Value Reference Range Interpretation Comments Urine Cannabinoids Screen (test code NEGATIVE NEGATIVE = 04125-7) [facility] TexasPhencyclidine (PCP) Sxxdow1516-71-14 14:40:00 Test Item Value Reference Range Interpretation Comments Phencyclidine (PCP) Screen (test NEGATIVE NEGATIVE code = Phencyclidine (PCP) Screen) [facility] TexasCocaine Mktfdw1410-52-67 14:40:00 Test Item Value Reference Range Interpretation Comments Cocaine Screen (test code = 3397-7) NEGATIVE NEGATIVE [facility] Methamphetamines Sqxxck8846-73-62 14:40:00 Test Item Value Reference Range Interpretation Comments Urine Methamphetamines Screen (test NEGATIVE NEGATIVE code = 54607-8) [facility] TexasOpiates Vmmciw3354-08-08 14:40:00 Test Item Value Reference Range Interpretation Comments Opiates Screen (test code = 06201-7) NEGATIVE NEGATIVE [facility] Amphetamines Dkruey6928-65-34 14:40:00 Test Item Value Reference Range Interpretation Comments Urine Amphetamines Screen (test code NEGATIVE NEGATIVE = 07088-3) [facility] TexasBenzodiazepines Phuwgn3739-94-75 14:40:00 Test Item Value Reference Range Interpretation Comments Benzodiazepines Screen (test code = NEGATIVE NEGATIVE 86583-3) [facility] TexasTricyclic Antidepressants Fcofft0047-13-83 14:40:00 Test Item Value Reference Range Interpretation Comments Tricyclic Antidepressants Screen NEGATIVE NEGATIVE (test code = 51540-9) [facility] TexasMethadone Gjbhpa6123-69-25 14:40:00 Test Item Value Reference Range Interpretation Comments Methadone Screen (test code = NEGATIVE NEGATIVE 99456-2) [facility] TexasUrine Barbiturates Lykpxh6500-06-45 14:40:00 Test Item Value Reference Range Interpretation Comments Urine Barbiturates Screen (test code NEGATIVE NEGATIVE = 41448-4) [facility] TexasOxycodone Flvkop1485-17-45 14:40:00 Test Item Value Reference Range Interpretation Comments Oxycodone Screen (test code = NEGATIVE NEGATIVE 25755-9) [facility] TexasPropoxyphene Nnzkdw0845-01-56 14:40:00 Test Item Value Reference Range Interpretation Comments Propoxyphene Screen (test code = NEGATIVE NEGATIVE 52759-7) [facility] Buprenorphine Iiqazy9896-67-46 14:40:00 Test Item Value Reference Range Interpretation Comments Urine Buprenorphine Screen (test NEGATIVE NEGATIVE code = 3414-0) CUT OFF CONCENTRATIONS:AMPHETAMINE 500 ng/mlBARBITURATES 200 ng/mlBENZODIAZEPINES 150 ng/mlBUPRENORPHINE 10 ng/mlCOCAINE 150 ng/mlMETHAMPHETAMINE 500 ng/mlMETHADONE 200 ng/mlOPIATES 100 ng/psYWLGXTIFK781 ng/mlPHENCYCLIDINE 25 ng/mlPROPOXYPHENE 300 ng/mlCANNIBINOIDS 50 ng/mlTRICYCLIC ANTIDEPRESSANTS 300 ng/ml ATTENTION:It is important to remember that the erentoTOX device, likeother instant drug testing immunoassays are [...] below the cut-off level of the test. [facility] TexasUrine Oudlx4070-68-36 14:40:00 Test Item Value Reference Range Interpretation Comments Urine Color (test code = 83664-9) [place] YELLOW Substances that cause abnormal urine color may affect thereadability of test pads on urinalysis reagent strips. Thesesubstances include visible levels of blood or bilirubin anddrugs containing dyes (e.g., Pyridium, Azo Gantrisin, AzoGantanol), nitrofurantion (Macrodantin, Furadantin), orriboflavin.[facility] Wemcwit8366-92-38 14:40:00 Test Item Value Reference Range Interpretation Comments Urine Clarity (test code = 44348-8) Cloudy CLEAR [facility] Avqsfva5604-29-70 14:40:00 Test Item Value Reference Range Interpretation Comments Urine Glucose (test code = 5792-7) NEGATIVE NEGATIVE [facility] Eywsivauk1086-31-92 14:40:00 Test Item Value Reference Range Interpretation Comments Urine Bilirubin (test code = 5770-3) NEGATIVE NEGATIVE [facility] Mqcaawp7133-67-62 14:40:00 Test Item Value Reference Range Interpretation Comments Urine Ketones (test code = 5797-6) NEGATIVE NEGATIVE [facility] Specific Apgdair5416-12-82 14:40:00 Test Item Value Reference Range Interpretation Comments Urine Specific Lena (test code = 1.023 1.002-1.030 5811-5) [facility] Zxcki1086-13-94 14:40:00 Test Item Value Reference Range Interpretation Comments Urine Blood (test code = 53001-7) SMALL NEGATIVE [facility] qH8649-84-25 14:40:00 Test Item Value Reference Range Interpretation Comments Urine pH (test code = 5803-2) 6 5.0-8.0 [facility] Lkympap3014-32-04 14:40:00 Test Item Value Reference Range Interpretation Comments Urine Protein (test code = 5804-0) 30 NEGATIVE [facility] Bzwyxmlxhyiz5666-70-28 14:40:00 Test Item Value Reference Range Interpretation Comments Urine Urobilinogen (test code = 2.0 NEGATIVE 60349-8) [facility] Kbxvqbq4134-43-34 14:40:00 Test Item Value Reference Range Interpretation Comments Urine Nitrite (test code = 5802-4) POSITIVE NEGATIVE [facility] Leukocyte Ojzujges7403-53-95 14:40:00 Test Item Value Reference Range Interpretation Comments Urine Leukocyte Esterase (test code = 250 NEGATIVE 81336-3) [facility] MNQ1485-40-14 14:40:00 Test Item Value Reference Range Interpretation Comments Urine RBC (test code = 77044-6) 6-14 0-2 [facility] QPM2363-90-02 14:40:00 Test Item Value Reference Range Interpretation Comments Urine WBC (test code = 39109-8) TNTC 0-5 "Urine Culture test was reflexed and added to this specimen"[facility] Squamous Epithelial Kgxnv4938-83-59 14:40:00 Test Item Value Reference Range Interpretation Comments Urine Squamous Epithelial Cells (test 0-2 0-5 code = 84847-2) [facility] Gmujveit0926-36-29 14:40:00 Test Item Value Reference Range Interpretation Comments Urine Bacteria (test code = 38312-0) 2+ NEGATIVE "Urine Culture test was reflexed and added to this specimen"[facility] WBC Rhxrfq9077-61-53 14:40:00 Test Item Value Reference Range Interpretation Comments Urine WBC Clumps (test code = 83395-6) 15-30 NEGATIVE [facility] Vyesm0447-56-01 14:40:00 Test Item Value Reference Range Interpretation Comments Urine Mucus (test code = 39942-4) MANY NEGATIVE [facility] TexasAmmonia2020-05-13 05:00:00 Test Item Value Reference Range Interpretation Comments Ammonia (test code = 21407-4) 75 11-35 [facility] Uzuay7680-57-21 04:11:00 Test Item Value Reference Range Interpretation Comments Sodium Level (test code = 2951-2) 135 135-144 [facility] TexasPotassium Tdccn6662-30-90 04:11:00 Test Item Value Reference Range Interpretation Comments Potassium Level (test code = 2823-3) 4.2 3.5-5.1 [facility] TexasChloride Uhiie9718-55-73 04:11:00 Test Item Value Reference Range Interpretation Comments Chloride Level (test code = 2075-0) 115 101-111 [facility] TexasCarbon Dioxide Sxubd2812-39-36 04:11:00 Test Item Value Reference Range Interpretation Comments Carbon Dioxide Level (test code = 16 8-9) [facility] TexasAnion Okg5614-89-24 04:11:00 Test Item Value Reference Range Interpretation Comments Anion Gap (test code = 93919-9) 8.2 10-20 [facility] TexasGlucose Xdnmg6596-98-72 04:11:00 Test Item Value Reference Range Interpretation Comments Glucose Level (test code = 2345-7) 95 65-99 Prediabetes 100 to 125 mg/dlDiabetes 126mg/dl or higher Prediabetes refers to individuals with plasma glucose levelsintermediate between those considered normal and thoseconsidered diabetic and is also referred to as impairedglucose tolerance (IGT) or impaired fasting glucose (IFG). [facility] TexasBlood Urea Iummkomf7054-37-69 04:11:00 Test Item Value Reference Range Interpretation Comments Blood Urea Nitrogen (test code = 6 03-30 3094-0) [facility] TexasCreatinine2020-05-12 04:11:00 Test Item Value Reference Range Interpretation Comments Creatinine (test code = 2160-0) 0.6 0.44-1.00 [facility]EGFR Yxfy2046-45-21 04:11:00 Test Item Value Reference Range Interpretation Comments EGFR Note (test code = 97717-4) 101.4 63.8-143.2 eGFR (Estimated Glomerular Filtration Rate) eGFR calculation value obtained using the [facility] HospitalQuadratic (Q) equation. The reportable reference range isrecommended to be greater than 60 ml/min/1.73m. This is anestimation of the patient's GFR and clinical correlation isrecommended. This eGFR calculation does not account for race. This resultmay differ from other equations available. [facility] TexasCalcium Lloxh0291-69-08 04:11:00 Test Item Value Reference Range Interpretation Comments Calcium Level (test code = 30257-3) 7.7 8.9-10.3 [facility] TexasMagnesium Efrxw0412-45-83 04:16:00 Test Item Value Reference Range Interpretation Comments Magnesium Level (test code = 26438-3) 2.0 1.8-2.5 [facility] Qpfsn5247-34-11 04:16:00 Test Item Value Reference Range Interpretation Comments Magnesium Level (test code = 47477-5) 2.0 1.8-2.5 [facility] Omsus8316-75-65 03:08:00 Test Item Value Reference Range Interpretation Comments White Blood Count (test code = 6690-2) 5.4 4.1-12.9 [facility] TexasRed Blood Wcete8216-32-88 03:08:00 Test Item Value Reference Range Interpretation Comments Red Blood Count (test code = 789-8) 3.05 3.64-5.20 [facility] TexasHemoglobin2020-05-10 03:08:00 Test Item Value Reference Range Interpretation Comments Hemoglobin (test code = 718-7) 9.6 10.6-15.6 [facility] TexasHematocrit2020-05-10 03:08:00 Test Item Value Reference Range Interpretation Comments Hematocrit (test code = 18058-8) 29.3 32.0-45.9 [facility] Corpuscular Whhgot7524-36-23 03:08:00 Test Item Value Reference Range Interpretation Comments Mean Corpuscular Volume (test code = 96.1 74.6-98.2 31192-4) [facility] Corpuscular Pbmtgfbxsd9182-58-28 03:08:00 Test Item Value Reference Range Interpretation Comments Mean Corpuscular Hemoglobin (test code 31.5 24.3-33.8 = 32304-3) [facility] Corpuscular Hgb Concent Mqgm8737-99-17 03:08:00 Test Item Value Reference Range Interpretation Comments Mean Corpuscular Hgb Concent Diff (test 32.8 32.0-36.0 code = 87582-8) [facility] TexasRed Cell Distribution Wlrqm2900-48-85 03:08:00 Test Item Value Reference Range Interpretation Comments Red Cell Distribution Width (test code 16.9 11.4-16.3 = 68300-0) [facility] TexasPlatelet Evatc2008-02-29 03:08:00 Test Item Value Reference Range Interpretation Comments Platelet Count (test code = 777-3) 208 168-441 [facility] TexasMean Platelet Kdfsme6286-09-57 03:08:00 Test Item Value Reference Range Interpretation Comments Mean Platelet Volume (test code = 7.9 6.8-10.2 67323-4) [facility] TexasGranulocytes (%)2019-12-13 03:08:00 Test Item Value Reference Range Interpretation Comments Granulocytes (%) (test code = 06745-6) 75.3 39.8-78.1 [facility] TexasLymphocytes %2019-12-13 03:08:00 Test Item Value Reference Range Interpretation Comments Lymphocytes % (test code = 736-9) 6.2 14.1-47.6 [facility] TexasMonocytes %2019-12-13 03:08:00 Test Item Value Reference Range Interpretation Comments Monocytes % (test code = 5905-5) 9.5 3.8-11.6 [facility] TexasEosinophils %2019-12-13 03:08:00 Test Item Value Reference Range Interpretation Comments Eosinophils % (test code = 713-8) 6.8 0.6-7.3 [facility] TexasBasophils %2019-12-13 03:08:00 Test Item Value Reference Range Interpretation Comments Basophils % (test code = 85903-8) 2.2 0.0-2.0 [facility] TexasGranulocytes #2019-12-13 03:08:00 Test Item Value Reference Range Interpretation Comments Granulocytes # (test code = 86194-8) 4.1 1.6-10.1 [facility] TexasLymphocytes #2019-12-13 03:08:00 Test Item Value Reference Range Interpretation Comments Lymphocytes # (test code = 37199-3) 0.3 0.6-6.1 [facility] TexasMonocytes #2019-12-13 03:08:00 Test Item Value Reference Range Interpretation Comments Monocytes # (test code = 742-7) 0.5 0.2-1.5 [facility] TexasEosinophils #2019-12-13 03:08:00 Test Item Value Reference Range Interpretation Comments Eosinophils # (test code = 711-2) 0.4 0.0-0.9 [facility] TexasBasophils #2019-12-13 03:08:00 Test Item Value Reference Range Interpretation Comments Basophils # (test code = 80452-7) 0.1 0.0-0.2 [facility] TexasManual Sbtodacyjmkw1755-57-36 03:08:00 Test Item Value Reference Range Interpretation Comments Manual Differential (test code = Manual NO Differential) [facility] TexasAlbumin2020-05-10 03:08:00 Test Item Value Reference Range Interpretation Comments Albumin (test code = 1751-7) 2.3 3.5-5.0 [facility] Rzxwdfjav2645-77-09 03:08:00 Test Item Value Reference Range Interpretation Comments Total Bilirubin (test code = 1975-2) 2.0 0.2-1.2 [facility] [place]Alkaline Pubsrknmuro6665-15-71 03:08:00 Test Item Value Reference Range Interpretation Comments Alkaline Phosphatase (test code = 131 32-91 6768-6) [facility] Kqtxqso1197-21-30 03:08:00 Test Item Value Reference Range Interpretation Comments Total Protein (test code = 2885-2) 7.0 6.5-8.1 [facility] Aminotransferase (ALT/SGPT)2019-12-13 03:08:00 Test Item Value Reference Range Interpretation Comments Alanine Aminotransferase (ALT/SGPT) 22 7-55 (test code = 1742-6) [facility] TexasAspartate Amino Transf (AST/SGOT)2019-12-13 03:08:00 Test Item Value Reference Range Interpretation Comments Aspartate Amino Transf (AST/SGOT) (test 65 15-41 code = 1920-8) [facility] TexasGlobulin2020-05-10 03:08:00 Test Item Value Reference Range Interpretation Comments Globulin (test code = 99467-4) 4.7 2.3-3.5 [facility] TexasAlbumin/Globulin Hpwit8785-57-82 03:08:00 Test Item Value Reference Range Interpretation Comments Albumin/Globulin Ratio (test code = 0.5 1.2-2.2 1759-0) [facility] TexasLactic Acid Xvprz0129-95-18 20:26:00 Test Item Value Reference Range Interpretation Comments Lactic Acid Level (test code = 2524-7) 1.8 0.5-2.0 [facility] TexasAlcohols2020-05-09 19:00:00 Test Item Value Reference Range Interpretation Comments Alcohols (test code = 5643-2) < 5 0-5 [facility] TexasUrine Cannabinoids Bjuiei6005-62-87 17:53:00 Test Item Value Reference Range Interpretation Comments Urine Cannabinoids Screen (test code NEGATIVE NEGATIVE = 67081-2) [facility] TexasPhencyclidine (PCP) Zixwdt2620-53-36 17:53:00 Test Item Value Reference Range Interpretation Comments Phencyclidine (PCP) Screen (test NEGATIVE NEGATIVE code = Phencyclidine (PCP) Screen) [facility] TexasCocaine Leqisf7235-96-49 17:53:00 Test Item Value Reference Range Interpretation Comments Cocaine Screen (test code = 3397-7) NEGATIVE NEGATIVE [facility] Methamphetamines Xymaob4110-13-62 17:53:00 Test Item Value Reference Range Interpretation Comments Urine Methamphetamines Screen (test NEGATIVE NEGATIVE code = 88183-8) [facility] TexasOpiates Uqroux1136-24-87 17:53:00 Test Item Value Reference Range Interpretation Comments Opiates Screen (test code = 85008-6) NEGATIVE NEGATIVE [facility] TexasUrine Amphetamines Bfxaxk4486-79-87 17:53:00 Test Item Value Reference Range Interpretation Comments Urine Amphetamines Screen (test code NEGATIVE NEGATIVE = 33086-6) [facility] TexasBenzodiazepines Mcjoai4907-41-97 17:53:00 Test Item Value Reference Range Interpretation Comments Benzodiazepines Screen (test code = NEGATIVE NEGATIVE 85682-2) [facility] TexasTricyclic Antidepressants Mhbjmr7913-99-24 17:53:00 Test Item Value Reference Range Interpretation Comments Tricyclic Antidepressants Screen NEGATIVE NEGATIVE (test code = 11949-3) [facility] TexasMethadone Epzedc7292-10-60 17:53:00 Test Item Value Reference Range Interpretation Comments Methadone Screen (test code = NEGATIVE NEGATIVE 82638-6) [facility] TexasUrine Barbiturates Mrjjkg0564-44-75 17:53:00 Test Item Value Reference Range Interpretation Comments Urine Barbiturates Screen (test code NEGATIVE NEGATIVE = 41885-4) [facility] TexasOxycodone Hcyjwc0106-50-91 17:53:00 Test Item Value Reference Range Interpretation Comments Oxycodone Screen (test code = NEGATIVE NEGATIVE 28521-5) [facility] TexasPropoxyphene Bhzbzm6651-60-41 17:53:00 Test Item Value Reference Range Interpretation Comments Propoxyphene Screen (test code = NEGATIVE NEGATIVE 34402-9) [facility] Buprenorphine Dbhgxq8978-29-31 17:53:00 Test Item Value Reference Range Interpretation Comments Urine Buprenorphine Screen (test NEGATIVE NEGATIVE code = 3414-0) CUT OFF CONCENTRATIONS:AMPHETAMINE 500 ng/mlBARBITURATES 200 ng/mlBENZODIAZEPINES 150 ng/mlBUPRENORPHINE 10 ng/mlCOCAINE 150 ng/mlMETHAMPHETAMINE 500 ng/mlMETHADONE 200 ng/mlOPIATES 100 ng/uiLZJXADYXR801 ng/mlPHENCYCLIDINE 25 ng/mlPROPOXYPHENE 300 ng/mlCANNIBINOIDS 50 ng/mlTRICYCLIC ANTIDEPRESSANTS 300 ng/ml ATTENTION:It is important to remember that the erentoTOX device, likeother instant drug testing immunoassays are [...] below the cut-off level of the test. [facility] TexasUrine Gjiuy7268-49-13 17:53:00 Test Item Value Reference Range Interpretation Comments Urine Color (test code = 56491-8) [place] YELLOW Substances that cause abnormal urine color may affect thereadability of test pads on urinalysis reagent strips. Thesesubstances include visible levels of blood or bilirubin anddrugs containing dyes (e.g., Pyridium, Azo Gantrisin, AzoGantanol), nitrofurantion (Macrodantin, Furadantin), orriboflavin.[facility] Uzznldi8439-83-04 17:53:00 Test Item Value Reference Range Interpretation Comments Urine Clarity (test code = 41557-8) Cloudy CLEAR [facility] Dohnrrf7714-73-34 17:53:00 Test Item Value Reference Range Interpretation Comments Urine Glucose (test code = 5792-7) NEGATIVE NEGATIVE [facility] Fjqthtbdh0687-35-12 17:53:00 Test Item Value Reference Range Interpretation Comments Urine Bilirubin (test code = 5770-3) NEGATIVE NEGATIVE [facility] Quhafdz5295-60-86 17:53:00 Test Item Value Reference Range Interpretation Comments Urine Ketones (test code = 5797-6) NEGATIVE NEGATIVE [facility] Specific Yexkfqo1052-80-95 17:53:00 Test Item Value Reference Range Interpretation Comments Urine Specific Lena (test code = 1.014 1.002-1.030 5811-5) [facility] Siigv1812-78-03 17:53:00 Test Item Value Reference Range Interpretation Comments Urine Blood (test code = 40872-1) NEGATIVE NEGATIVE [facility] [id number] 17:53:00 Test Item Value Reference Range Interpretation Comments Urine pH (test code = 5803-2) 7 5.0-8.0 [facility] Hzgafaf2074-78-29 17:53:00 Test Item Value Reference Range Interpretation Comments Urine Protein (test code = 5804-0) NEGATIVE NEGATIVE [facility] Uolxlauvztso6561-41-67 17:53:00 Test Item Value Reference Range Interpretation Comments Urine Urobilinogen (test code = 4.0 NEGATIVE 39426-6) [facility] Nabjkry0154-48-41 17:53:00 Test Item Value Reference Range Interpretation Comments Urine Nitrite (test code = 5802-4) NEGATIVE NEGATIVE [facility] Leukocyte Ypqyjklv7413-99-01 17:53:00 Test Item Value Reference Range Interpretation Comments Urine Leukocyte Esterase (test code = 25 NEGATIVE 84030-1) [facility] [id number] 17:53:00 Test Item Value Reference Range Interpretation Comments Urine RBC (test code = 05142-1) 0-2 0-2 [facility] [id number] 17:53:00 Test Item Value Reference Range Interpretation Comments Urine WBC (test code = 43740-4) 3-5 0-5 [facility] Squamous Epithelial Trkls6911-04-76 17:53:00 Test Item Value Reference Range Interpretation Comments Urine Squamous Epithelial Cells (test 31-50 0-5 code = 04420-6) [facility] Fdzaltdi4495-07-03 17:53:00 Test Item Value Reference Range Interpretation Comments Urine Bacteria (test code = 56070-5) RARE NEGATIVE [facility] Hyaline Fnfep2121-45-96 17:53:00 Test Item Value Reference Range Interpretation Comments Urine Hyaline Casts (test code = 0-2 0-2 74955-5) [facility] Amorphous Veevgnto0454-90-21 17:53:00 Test Item Value Reference Range Interpretation Comments Urine Amorphous Crystals (test OCCASIONAL NEGATIVE code = 23299-5) [facility] Pcyfw6444-31-12 17:53:00 Test Item Value Reference Range Interpretation Comments Urine Mucus (test code = 23927-7) 2+ NEGATIVE [facility] Hyaline Lkvdo7062-05-96 17:53:00 Test Item Value Reference Range Interpretation Comments Urine Hyaline Casts (test code = 0-2 0-2 71854-2) [facility] Amorphous Bfdjobgh5212-03-83 17:53:00 Test Item Value Reference Range Interpretation Comments Urine Amorphous Crystals (test OCCASIONAL NEGATIVE code = 49030-8) [facility] TexasProthrombin Ywde2757-17-81 16:30:00 Test Item Value Reference Range Interpretation Comments Prothrombin Time (test code = 5964-2) 16.0 10.0-12.9 [facility] TexasINR International Normalized Xjqzx5304-26-23 16:30:00 Test Item Value Reference Range Interpretation [...] Thrombosis and Antiphospholipid syndrome Prevention of recurrent SD Sixth ACCP Consensus Conference on Antithrombotic Therapy,Chest 2001; 119:Supplement 8-21.[facility] TexasActivated Partial Thromboplast Yxdc6222-44-77 16:30:00 Test Item Value Reference Range Interpretation Comments Activated Partial Thromboplast Time 42.7 25.1-36.5 (test code = 3173-2) [facility] TexasAmylase Miqij0827-16-86 16:30:00 Test Item Value Reference Range Interpretation Comments Amylase Level (test code = 1798-8) 54 36-128 [facility] TexasLipase2020-05-09 16:30:00 Test Item Value Reference Range Interpretation Comments Lipase (test code = 3040-3) 19 22-51 [facility] TexasCreatine Yyklsb3567-66-61 16:30:00 Test Item Value Reference Range Interpretation Comments Creatine Kinase (test code = 2157-6) 1055 38-234 [facility] TexasCreatine Kinase [id number] 16:30:00 Test Item Value Reference Range Interpretation Comments Creatine Kinase MB (test code = 4.55 0.6-6.3 79724-3) [facility] TexasTroponin [id number] 16:30:00 Test Item Value Reference Range Interpretation Comments Troponin I (test code = 29022-2) < 0.01 0.00-0.03 Troponin I-Interpretation Reference : [...] 3. Serial sampling is critical for accurate diagnosis.[facility] TexasMyoglobin 2019-12-12 16:30:00 Test Item Value Reference Range Interpretation Comments Myoglobin (test code = 2639-3) 1884 14.3-65.8 [facility] TexasB-Type Natriuretic Jiqdhvj6146-01-55 16:30:00 Test Item Value Reference Range Interpretation Comments B-Type Natriuretic Peptide (test code = 34 0-100 23945-5) [facility] Laarlea8097-31-80 16:30:00 Test Item Value Reference Range Interpretation Comments Blood Culture (test code NO GROWTH AT 48 HRS = Blood Culture) [facility] TexasB-Type Natriuretic Xqazgre8063-02-28 16:30:00 Test Item Value Reference Range Interpretation Comments B-Type Natriuretic Peptide (test code = 34 0-100 85389-9) [facility] Oqbagiy1867-60-66 16:30:00 Test Item Value Reference Range Interpretation Comments Blood Culture (test code NO GROWTH AT 5 DAYS. = Blood Culture) [facility] Xhccqtq4757-95-64 16:16:00 Test Item Value Reference Range Interpretation Comments Blood Culture (test code NO GROWTH AT 48 HRS = Blood Culture) [facility] Vwqvhib0995-33-83 16:16:00 Test Item Value Reference Range Interpretation Comments Blood Culture (test code NO GROWTH AT 5 DAYS. = Blood Culture) [facility] [place]- SP PARACENTESIS W GPHRF3389-03-06 08:09:00 Patient Name: AMAURI CAPELLAN Unit No: [id number] EXAMS: CPT CODE: [id number] SP PARACENTESIS W [id number] Site ID: [id number] EXAMINATION: Ultrasound-guided paracentesis. INDICATION: [...] Air Kerma (mGy): Trnscrpt: 05/04/2019 (0809) [facility] NAME: AMAURI CAPELLAN Interventional Lab PHYS: Shilo Newton MD [address] [place] [address] Bl : 1970 AGE: 48 SEX: F [place], [place] [address] LOC: B.243 W PHONE #: EXAM DATE: 05/01/2019 STATUS: DIS IN FAX #: RAD #: D/C DT 05/02/2019 PAGE 1 Signed ReportBASIC METABOLIC [id number] 03:45:00 Test Item Value Reference Range Interpretation Comments SODIUM (test code = 134.0 mmol/L 133-144 N NA) POTASSIUM (test code 3.7 mmol/L 3.5-5.1 N = K) CHLORIDE (test code 109 mmol/L 95-105 H = CL) CARBON DIOXIDE (test 15 mmol/L 21-32 LL ON 04/06 03/23 AT code = CO2) 0344, 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 The report [...] Index/DL Is this a LINE draw? NVANCOMYCIN [id number] 22:26:00 Test Item Value Reference Range Interpretation [...] LINE draw? N- NM MYOCRD SPECT R/S [id number] 12:15:00 Patient Name: AMAURI CAPELLAN Unit No: [id number] EXAMS: CPT CODE: [id number] NM MYOCRD SPECT R/S MULT 35750 The patient exercised according to standard Lexiscan [...] for processing and reporting. CC: Juani Florez SERVER SOFTWARE ENGINEER; Oscar Solano NAME: AMAURI CAPELLAN [employer] [facility] PHYS: Juani Ruiz SERVER SOFTWARE ENGINEER [address] [place] [address] : 1970 AGE: 48 SEX: BHAVIK AGUILAR [facility] LOC: B.243 W PHONE #: [phone] EXAM DATE: 05/01/2019 STATUS: ADM IN FAX #: [phone] RAD NO: DC Dt: PAGE 1 Signed Repo rt Patient Name: AMAURI CAPELLAN Unit No: [id number] EXAMS: CPT CODE: [id number] NM MYOCRD SPECT R/S MULT 52101 (Continued) Technologist: Claudia Daniel; Courtney Campbell; ... Transcribed Date/Time: 05/01/2019 (1215) - [id number] Orig Print D/T: S: 05/01/2019 (1218) DILLON Solano NAME: AMAURI CAPELLAN [employer] [facility] PHYS: Juani Ruiz Riky GOMEZ [address] [place] [address] : 1970 AGE: 48 SEX: BHAVIK AGUILAR [facility] LOC: B.243 W PHONE #: [phone] EXAM DATE: 05/01/2019 STATUS: ADMIN FAX #: [phone] RAD NO: DC Dt: PAGE 2 Signed ReportBASIC METABOLIC [id number] 03:49:00 Test Item Value Reference Range Interpretation [...] LIPINDEX) Index/DL Is this a LINE draw? ASIC METABOLIC [id number] 03:40:00 Test Item Value Reference Range Interpretation [...] Is this a LINE draw? NCBC W/AUTO [id number] 03:32:00 Test Item Value Reference Range Interpretation [...] 0.00 K/mm3 0.0-0.05 N NRBC#) GLUCOSE BEDSIDE [id number] 11:36:00 Test Item Value Reference Range Interpretation Comments GLUCOSE BEDSIDE TESTING (test code 121 MG/DL 70-119 H = GLUBED) CBC W/MANUAL [id number] 06:50:00 Test Item Value Reference Range Interpretation [...] CRITERIA (test code = MDIFF) DIFF/SCN WBC [id number] 06:50:00 Test Item Value Reference Range Interpretation [...] ON SCAN ADEQUATE = PLTEST) BASIC METABOLIC [id number] 05:10:00 Test Item Value Reference Range Interpretation Comments SODIUM (test code = 136.0 mmol/L 133-144 N NA) POTASSIUM (test code 4.2 mmol/L 3.5-5.1 N = K) CHLORIDE (test code 111 mmol/L 95-105 H = CL) CARBON DIOXIDE (test 15 mmol/L 21-32 LL ON 09/2 6/19 AT code = CO2) 0510, B.LAB.AR CALLED [...] NORMAL code = LIPINDEX) Index/DL CBC W/MANUAL [id number] 04:26:00 Test Item Value Reference Range Interpretation [...] CRITERIA (test code = MDIFF) DIFF/SCN WBC [id number] 04:26:00 Test Item Value Reference Range Interpretation Comments TOTAL CELLS COUNTED (test code = #CELLS >100 TCC) SEGMENTED NEUTROPHILS (test code = % 40-75 SEG) LYMPHOCYTE (test code = LYMPH) % 18.7-40.6 MORPHOLOGY COMMENT (test code = MOC) ON SCAN NORMAL RBCS PLATELET ESTIMATE (test code = ON SCAN ADEQUATE PLTEST) CBC W/MANUAL [id number] 04:26:00 Test Item Value Reference Range Interpretation [...] MAN DIFF INDICATED CRITERIA (test code = IFF) DIFF/SCN WBC [id number] 04:26:00 Test Item Value Reference Range Interpretation Comments TOTAL CELLS COUNTED (test code = #CELLS >100 TCC) SEGMENTED NEUTROPHILS (test code = % 40-75 SEG) LYMPHOCYTE (test code = LYMPH) % 18.7-40.6 MORPHOLOGY COMMENT (test code = MOC) ON SCAN NORMAL RBCS PLATELET ESTIMATE (test code = ON SCAN ADEQUATE PLTEST) HGB [id number] 22:43:00 Test Item Value Reference Range Interpretation Comments RED BLOOD CELL (test code = RBC) 4.44 M/mm3 3.8-5.5 N HEMOGLOBIN (test code = HGB) 13.4 G/DL 10.6-15.8 N HEMATOCRIT (test code = HCT) 39.3 % 31.8-47.4 N MEAN CELL VOLUME (test code = MCV) 88.5 fL 80.1-101.[address] F[address] [id number] 13:22:00 Test Item Value Reference Range Interpretation [...] ORGANISMS IDENTIFIED. Gianfranco ESPARZA MD. PERITONEAL FLD [id number] 13:22:00 Test Item Value Reference Interpretation Comments [...] the clinical contextfor inte rpretation. PERITONEAL FLD [id number] 13:22:00 Test Item Value Reference Range Interpretation [...] clinic al contextfor interpretation. Performed At: [facility] [address] [facility] , [place] [id number] Dagoberto Ricardo MD Ph:[phone] PERITONEAL FLD [id number] 13:22:00 Test Item Value Reference Range Interpretation [...] clinic al context forinterpretati on. CBC W/MANUAL [id number] 13:12:00 Test Item Value Reference Range Interpretation [...] CRITERIA (test code = MDIFF) DIFF/SCN WBC [id number] 13:12:00 Test Item Value Reference Range Interpretation [...] ON SCAN ADEQUATE = PLTEST) CBC W/MANUAL [id number] 11:53:00 Test Item Value Reference Range Interpretation [...] CRITERIA (test code = MDIFF) DIFF/SCN WBC [id number] 11:53:00 Test Item Value Reference Range Interpretation Comments TOTAL CELLS COUNTED (test code = #CELLS >100 TCC) SEGMENTED NEUTROPHILS (test code = % 40-75 SEG) LYMPHOCYTE (test code = LYMPH) % 18.7-40.6 MORPHOLOGY COMMENT (test code = MOC) ON SCAN NORMAL RBCS PLATELET ESTIMATE (test code = ON SCAN ADEQUATE PLTEST) CBC W/MANUAL [id number] 11:53:00 Test Item Value Reference Range Interpretation [...] CRITERIA (test code = MDIFF) DIFF/SCN WBC [id number] 11:53:00 Test Item Value Reference Range Interpretation Comments TOTAL CELLS COUNTED (test code = #CELLS >100 TCC) SEGMENTED NEUTROPHILS (test code = % 40-75 SEG) LYMPHOCYTE (test code = LYMPH) % 18.7-40.6 MORPHOLOGY COMMENT (test code = MOC) ON SCAN NORMAL RBCS PLATELET ESTIMATE (test code = ON SCAN ADEQUATE PLTEST) PERITONEAL FLD CELL [id number] 11:10:00 Test Item Value Reference Range Interpretation [...] NONE (test code = MESPT) PERITONEAL FLD [id number] 11:10:00 Test Item Value Reference Interpretation Comments [...] the clinical contextfor inte rpretation. PERITONEAL FLD [id number] 11:10:00 Test Item Value Reference Range Interpretation Comments PERITONEAL FLD LDH (test code = LDHPT) PERITONEAL FLD [id number] 11:10:00 Test Item Value Reference Range Interpretation Comments PERITONEAL FLD AMYLASE (test code = AMYPT) PERITONEAL FLD CELL [id number] 11:10:00 Test Item Value Reference Range Interpretation [...] NONE (test code = MESPT) PERITONEAL FLD [id number] 11:10:00 Test Item Value Reference Interpretation Comments [...] the clinical contextfor inte rpretation. PERITONEAL FLD [id number] 11:10:00 Test Item Value Reference Range Interpretation Comments PERITONEAL FLD LDH (test code = LDHPT) PERITONEAL FLD [id number] 11:10:00 Test Item Value Reference Range Interpretation [...] al context forinterpretati on. PERITONEAL FLD CELL [id number] 11:10:00 Test Item Value Reference Range Interpretation [...] NONE (test code = MESPT) PERITONEAL FLD [id number] 11:10:00 Test Item Value Reference Interpretation Comments [...] the clinical contextfor inte rpretation. PERITONEAL FLD [id number] 11:10:00 Test Item Value Reference Range Interpretation [...] the clinic al contextfor interpretation. Performed At: [facility] [address] [facility] AWILDA Oshea [id number] Kyle L MD Ph:[phone] PERITONEAL FLD [id number] 11:10:00 Test Item Value Reference Range Interpretation [...] clinic al context forinterpretati on. BODY FLUID [id number] 11:10:00 Test Item Value Reference Range Interpretation [...] jermain 2018 the reference i nterval for [id number] Albumin, Body Fluid will be changing to Not Estab.Performed At: [facility] [address] [place], [place] [id number] Dagoberto Ricardo MD Ph:[phone] Specimen comments: PERITONEAL FLUIDCBC W/MANUAL [id number] 06:17:00 Test Item Value Reference Range Interpretation [...] CRITERIA (test code = MDIFF) DIFF/SCN WBC [id number] 06:17:00 Test Item Value Reference Range Interpretation [...] NORMAL PLTS code = PLTMORPH) BASIC METABOLIC [id number] 04:00:00 Test Item Value Reference Range Interpretation [...] MG 1 NORMAL code = LIPINDEX) Index/DL [id number] 04:00:00 Test Item Value Reference Range Interpretation Comments MAGNESIUM (test code = MAG) 1.8 MG/DL 1.6-2.6 N CBC W/MANUAL [id number] 03:57:00 Test Item Value Reference Range Interpretation [...] CRITERIA (test code = MDIFF) DIFF/SCN WBC [id number] 03:57:00 Test Item Value Reference Range Interpretation Comments TOTAL CELLS COUNTED (test code = #CELLS >100 TCC) SEGMENTED NEUTROPHILS (test code = % 40-75 SEG) LYMPHOCYTE (test code = LYMPH) % 18.7-40.6 MORPHOLOGY COMMENT (test code = MOC) ON SCAN NORMAL RBCS PLATELET ESTIMATE (test code = ON SCAN ADEQUATE PLTEST) CBC W/MANUAL [id number] 03:57:00 Test Item Value Reference Range Interpretation [...] CRITERIA (test code = MDIFF) DIFF/SCN WBC [id number] 03:57:00 Test Item Value Reference Range Interpretation Comments TOTAL CELLS COUNTED (test code = #CELLS >100 TCC) SEGMENTED NEUTROPHILS (test code = % 40-75 SEG) LYMPHOCYTE (test code = LYMPH) % 18.7-40.6 MORPHOLOGY COMMENT (test code = MOC) ON SCAN NORMAL RBCS PLATELET ESTIMATE (test code = ON SCAN ADEQUATE PLTEST) CBC W/MANUAL [id number] 19:07:00 Test Item Value Reference Range Interpretation [...] (test code = MDIFF) INDICATED DIFF/SCN WBC [id number] 19:07:00 Test Item Value Reference Range Interpretation [...] NORMAL PLTS code = PLTMORPH) CBC W/MANUAL [id number] 19:06:00 Test Item Value Reference Range Interpretation [...] (test code = MDIFF) INDICATED DIFF/SCN WBC [id number] 19:06:00 Test Item Value Reference Range Interpretation [...] NORMAL PLTS code = PLTMORPH) CBC W/MANUAL [id number] 18:24:00 Test Item Value Reference Range Interpretation [...] (test code = MDIFF) INDICATED DIFF/SCN WBC [id number] 18:24:00 Test Item Value Reference Range Interpretation Comments TOTAL CELLS COUNTED (test code = #CELLS >100 TCC) SEGMENTED NEUTROPHILS (test code = % 40-75 SEG) LYMPHOCYTE (test code = LYMPH) % 18.7-40.6 MORPHOLOGY COMMENT (test code = MOC) ON SCAN NORMAL RBCS PLATELET ESTIMATE (test code = ON SCAN ADEQUATE PLTEST) CBC W/MANUAL [id number] 18:24:00 Test Item Value Reference Range Interpretation [...] (test code = MDIFF) INDICATED DIFF/SCN WBC [id number] 18:24:00 Test Item Value Reference Range Interpretation Comments TOTAL CELLS COUNTED (test code = #CELLS >100 TCC) SEGMENTED NEUTROPHILS (test code = % 40-75 SEG) LYMPHOCYTE (test code = LYMPH) % 18.7-40.6 MORPHOLOGY COMMENT (test code = MOC) ON SCAN NORMAL RBCS PLATELET ESTIMATE (test code = ON SCAN ADEQUATE PLTEST) PERITONEAL FLD CELL [id number] 17:43:00 Test Item Value Reference Range Interpretation [...] NONE (test code = MESPT) PERITONEAL FLD [id number] 17:43:00 Test Item Value Reference Range Interpretation Comments PERITONEAL FLD GLUCOSE (test code = GLUPT) PERITONEAL FLD [id number] 17:43:00 Test Item Value Reference Range Interpretation Comments PERITONEAL FLD LDH (test code = LDHPT) PERITONEAL FLD [id number] 17:43:00 Test Item Value Reference Range Interpretation Comments PERITONEAL FLD AMYLASE (test code = AMYPT) PERITONEAL FLD CELL [id number] 16:44:00 Test Item Value Reference Range Interpretation Comments PERITONEAL FLD COLOR (test STRAW DESCRIP. COLORLESS code = COLPT) PERITONEAL FLD APPEARANCE CLEAR DESCRIP. CLEAR (test code = APPPT) PERITONEAL FLD WBC (test code 126 #/mm3 0-300 N = WBCPT) PERITONEAL FLD RBC (test code 495 #/mm3 0-0 H = RBCPT) PERITONEAL FLD POLY (test code % 0-49 = POLYPT) PERITONEAL FLD [id number] 16:44:00 Test Item Value Reference Range Interpretation Comments PERITONEAL FLD GLUCOSE (test code = GLUPT) PERITONEAL FLD [id number] 16:44:00 Test Item Value Reference Range Interpretation Comments PERITONEAL FLD LDH (test code = LDHPT) PERITONEAL FLD [id number] 16:44:00 Test Item Value Reference Range Interpretation Comments PERITONEAL FLD AMYLASE (test code = AMYPT) PERITONEAL FLD CELL [id number] 16:39:00 Test Item Value Reference Range Interpretation Comments PERITONEAL FLD COLOR (test code = DESCRIP. COLORLESS COLPT) PERITONEAL FLD APPEARANCE (test DESCRIP. CLEAR code = APPPT) PERITONEAL FLD WBC (test code = 126 #/mm3 0-300 N WBCPT) PERITONEAL FLD RBC (test code = 495 #/mm3 0-0 H RBCPT) PERITONEAL FLD POLY (test code = % 0-49 POLYPT) PERITONEAL FLD [id number] 16:39:00 Test Item Value Reference Range Interpretation Comments PERITONEAL FLD GLUCOSE (test code = GLUPT) PERITONEAL FLD [id number] 16:39:00 Test Item Value Reference Range Interpretation Comments PERITONEAL FLD LDH (test code = LDHPT) PERITONEAL FLD [id number] 16:39:00 Test Item Value Reference Range Interpretation Comments PERITONEAL FLD AMYLASE (test code = AMYPT) PERITONEAL FLD CELL [id number] 16:35:00 Test Item Value Reference Range Interpretation Comments PERITONEAL FLD COLOR (test code = DESCRIP. COLORLESS COLPT) PERITONEAL FLD APPEARANCE (test DESCRIP. CLEAR code = APPPT) PERITONEAL FLD WBC (test code = #/mm3 0-300 WBCPT) PERITONEAL FLD RBC (test code = 495 #/mm3 0-0 H RBCPT) PERITONEAL FLD POLY (test code = % 0-49 POLYPT) PERITONEAL FLD [id number] 16:35:00 Test Item Value Reference Range Interpretation Comments PERITONEAL FLD GLUCOSE (test code = GLUPT) PERITONEAL FLD [id number] 16:35:00 Test Item Value Reference Range Interpretation Comments PERITONEAL FLD LDH (test code = LDHPT) PERITONEAL FLD [id number] 16:35:00 Test Item Value Reference Range Interpretation Comments PERITONEAL FLD AMYLASE (test code = AMYPT) - SP PARACENTESIS W [id number] 15:59:00 Patient Name: AMAURI CAPELLAN Unit No: [id number] EXAMS: CPT CODE: [id number] SP PARACENTESIS W [id number] Site ID: [id number] EXAMINATION: Ultrasound-guided paracentesis. INDICATION: [...] Mcleod MD;Shilo Tesfaye MD Dictated Date/Time: 04/28/2019 (0609) Technologist: Tamar Ruiz Time: DAP (Gy m2): Air Kerma (mGy): Trnscrpt: 04/28/2019 (2928) Tunde Solano IR NAME: [facility] PHYS: Shilo Newton MD [address] [place] [address] Blvd : 1970 AGE: 48 SEX: F [place], [place] [address] [facility] NO: [id number] LOC: NataliiaCCU23 D PHONE #: EXAM DATE: 04/28/2019 STATUS:ADM IN FAX #: RAD #: D/C DT PAGE 1 Signed ReportUA RFLX MICR CULT IF [id number] 14:08:00 Test Item Value Reference Range Interpretation [...] Criteria Indication for culture: Flank PainCBC W/MANUAL [id number] 13:04:00 Test Item Value Reference Range Interpretation [...] CRITERIA (test code = MDIFF) DIFF/SCN WBC [id number] 13:04:00 Test Item Value Reference Range Interpretation [...] ON SCAN ADEQUATE = PLTEST) CBC W/MANUAL [id number] 12:23:00 Test Item Value Reference Range Interpretation [...] CRITERIA (test code = MDIFF) DIFF/SCN WBC [id number] 12:23:00 Test Item Value Reference Range Interpretation Comments TOTAL CELLS COUNTED (test code = #CELLS >100 TCC) SEGMENTED NEUTROPHILS (test code = % 40-75 SEG) LYMPHOCYTE (test code = LYMPH) % 18.7-40.6 MORPHOLOGY COMMENT (test code = MOC) ON SCAN NORMAL RBCS PLATELET ESTIMATE (test code = ON SCAN ADEQUATE PLTEST) CBC W/MANUAL [id number] 12:23:00 Test Item Value Reference Range Interpretation [...] CRITERIA (test code = MDIFF) DIFF/SCN WBC [id number] 12:23:00 Test Item Value Reference Range Interpretation Comments TOTAL CELLS COUNTED (test code = #CELLS >100 TCC) SEGMENTED NEUTROPHILS (test code = % 40-75 SEG) LYMPHOCYTE (test code = LYMPH) % 18.7-40.6 MORPHOLOGY COMMENT (test code = MOC) ON SCAN NORMAL RBCS PLATELET ESTIMATE (test code = ON SCAN ADEQUATE PLTEST) CBC W/MANUAL [id number] 12:10:00 Test Item Value Reference Range Interpretation Comments WHITE BLOOD CELL 14.6 K/mm3 4.1-12.1 H (test code = WBC) RED BLOOD CELL (test 1.07 M/mm3 3.8-5.5 LL code = RBC) HEMOGLOBIN (test 3.2 G/DL 10.6-15.8 LL ON 04/27/19 AT code = HGB) 2028, B.LAB.AK CALLED TO [facility] ER. The report was confirmed b y read back protocols Y,N: Y. HEMATOCRIT (test 10.8 % 31.8-47.4 LL ON 04/27/19 AT code = HCT) 2029, B.LAB.AK CALLED TO [facility]. The report was confirmed by re [...] (test code = MDIFF) INDICATED DIFF/SCN PATHOLOGIST'S [id number] 12:10:00 Test Item Value Reference Range Interpretation Comments PATHOLOGIST'S EXTERNAL COMMENTS RBC'S- HYPOCHR OMIC ANEMIA FINDINGS (test WITH INCREASE D code = PATH) POLYCHROMASIA A NDNRBC'S. WBC'S- LEUKOCYT OSIS WITH LEFT SHIFT. RAREPROMYELOCYT ES IDENTIFIED. Gianfranco ESPARZA MD. WBC [id number] 12:10:00 Test Item Value Reference Range Interpretation [...] code = ADEQ ON SCAN ADEQUATE PLTEST) [id number] 10:49:00 Test Item Value Reference Range Interpretation [...] changes in trop onin levelscharacter istic of SD. HCG [id number] 09:00:00 Test Item Value Reference Range Interpretation Comments HCG SERUM (test <1 mi-IU/ML 0-3 N INTERPRET B- HCG LEVELS code = HCG) LESS THAN OR EQ UAL TO 3 MIU/ML NEG Specimen comments: PRE-OP ENDOComments to [employer] P[employer]: BLOOD ALREADY IN LABIs this a LINE draw? NCBC W/MANUAL [id number] 08:42:00 Test Item Value Reference Range Interpretation [...] CRITERIA (test code = MDIFF) DIFF/SCN WBC [id number] 08:42:00 Test Item Value Reference Range Interpretation [...] ON SCAN ADEQUATE = PLTEST) CBC W/MANUAL [id number] 07:01:00 Test Item Value Reference Range Interpretation [...] CRITERIA (test code = MDIFF) DIFF/SCN WBC [id number] 07:01:00 Test Item Value Reference Range Interpretation Comments TOTAL CELLS COUNTED (test code = #CELLS >100 TCC) SEGMENTED NEUTROPHILS (test code = % 40-75 SEG) LYMPHOCYTE (test code = LYMPH) % 18.7-40.6 MORPHOLOGY COMMENT (test code = MOC) ON SCAN NORMAL RBCS PLATELET ESTIMATE (test code = ON SCAN ADEQUATE PLTEST) CBC W/MANUAL [id number] 07:01:00 Test Item Value Reference Range Interpretation [...] CRITERIA (test code = MDIFF) DIFF/SCN WBC [id number] 07:01:00 Test Item Value Reference Range Interpretation Comments TOTAL CELLS COUNTED (test code = #CELLS >100 TCC) SEGMENTED NEUTROPHILS (test code = % 40-75 SEG) LYMPHOCYTE (test code = LYMPH) % 18.7-40.6 MORPHOLOGY COMMENT (test code = MOC) ON SCAN NORMAL RBCS PLATELET ESTIMATE (test code = ON SCAN ADEQUATE PLTEST) BASIC METABOLIC [id number] 06:50:00 Test Item Value Reference Range Interpretation [...] NORMAL code = LIPINDEX) Index/DL BASIC METABOLIC [id number] 06:42:00 Test Item Value Reference Range Interpretation [...] MG 1 NORMAL = LIPINDEX) Index/DL LACTIC [id number] 04:16:00 Test Item Value Reference Range Interpretation Comments LACTIC ACID (test code = LACT) 1.6 mmol/L 0.4-2.0 N Specimen comments: SEPSIS WORKUPTHYROID STIMULATING [id number] 02:23:00 Test Item Value Reference Range Interpretation Comments THYROID STIMULATING HORMONE 1.440 mc IU/ML 0.340-4.820 N (test code = TSH) [id number] 02:23:00 Test Item Value Reference Range Interpretation [...] changes in trop onin levelscharacter istic of SD. PROCALCITONIN (PCT)2019-04-28 02:23:00 Test Item Value Reference [...] if concen trations <2 NG/ML. CBC W/MANUAL [id number] 02:13:00 Test Item Value Reference Range Interpretation Comments WHITE BLOOD CELL 11.6 K/mm3 4.1-12.1 N (test code = WBC) RED BLOOD CELL (test 1.88 M/mm3 3.8-5.5 LL code = RBC) HEMOGLOBIN (test 5.6 G/DL 10.6-15.8 LL ON 04/27/19 AT code = HGB) 5, B.LAB.GP CALLED TO [facility]. The report [...] (test code = MDIFF) INDICATED DIFF/SCN WBC [id number] 02:13:00 Test Item Value Reference Range Interpretation [...] DECR ON SCAN ADEQUATE = PLTEST) LACTIC [id number] 02:07:00 Test Item Value Reference Range Interpretation Comments LACTIC ACID (test 2.9 mmol/L 0.4-2.0 HH Critical v alues after the code = LACT) first occurrenc e are excluded fromca ll documentation requirements fo r this analyte due to thepatient diagnosis or th erapy protocols. Specimen comments: SEPSIS WORKUPTHYROID STIMULATING [id number] 01:58:00 Test Item Value Reference Range Interpretation Comments THYROID STIMULATING HORMONE 1.440 mc IU/ML 0.340-4.820 N (test code = TSH) [id number] 01:58:00 Test Item Value Reference Range Interpretation [...] changes in trop onin levelscharacter istic of SD. PROCALCITONIN (PCT)2019-04-28 01:58:00 Test Item Value Reference Range Interpretation Comments PROCALCITONIN (PCT) (test code = NG/ML 0.00-0.10 PROCAL) THYROID STIMULATING [id number] 01:49:00 Test Item Value Reference Range Interpretation Comments THYROID STIMULATING HORMONE (test mc IU/ML 0.340-4.820 code = TSH) [id number] 01:49:00 Test Item Value Reference Range Interpretation [...] changes in trop onin levelscharacter istic of SD. PROCALCITONIN (PCT)2019-04-28 01:49:00 Test Item Value Reference Range Interpretation Comments PROCALCITONIN (PCT) (test code = NG/ML 0.00-0.10 PROCAL) - CT ABD PELVIS W/O [id number] 23:36:00 Patient Name: AMAURI CAPELLAN Unit No: [id number] EXAMS: CPT CODE: [id number] CT ABD PELVIS W/O CONT 52509 AFTER HOURS SERVICE ON: 04/27/2019 11:32 PM [...] multiple gallstones. There are no peripancreatic inflammatory changes.Kidneys and adrenal glands are within normal limits. There is no hydronephrosis. There is no retroperitoneal adenopathy. Bladder, uterus and adnexa are within normal limits. Small bowel loops are fluid-filled. There is no evidence of small bowel obstruction or free air. There is wall thickening of thegastric body and antrum. The appendix is not visualized. There is a fluid containing umbilical hernia measuring 6.4 cm. IMPRESSION: Extensive ascites and a nodular cirrhotic appearing liver. Cholelithiasis. No bowel obstruction or free air. Extensive wall thickening of the stomach. Endoscopic correlation recommended. Fluid containing umbilical hernia. at 2334 Reported and signed by: Lizeth España M.D. CC: Oscar Mcleod MDDictated Date/Time: 04/27/2019 (5033) Technologist: Joselin Sosa CTDI: 10.62 DLP: 1250.01 Trnscrpt: 04/27/2019 (4544) [email or web address] DILLON [place] NAME: AMAURI CAPELLAN [address] [place] [address] PHYS: UBALDOSRIDEVIMagalyOscar [place] [address] : 1970 AGE: 48 SEX: F LOC:B.CCU23 D PHONE #: [phone] EXAM DATE: 04/27/2019 STATUS: ADM IN FAX #: [phone] RAD #: D/CDT PAGE 1 Signed Report Patient Name: AMAURI CAPELLAN Unit No: [id number] EXAMS: CPT CODE: [id number] ABD PELVIS W/O CONT 05601 (Continued) Orig Print D/T: S: 04/27/2019 (7292) DILLON [place] NAME: NEENA[address] PHYS: EDIMagalyOscar Min [place] [address] : 1970 AGE: 48 SEX: F LOC: B.CCU23 D PHONE #: [phone] EXAM DATE: 04/27/2019 STATUS: ADM IN FAX #: [phone] RAD #: D/C DT PAGE 2 Signed ReportLACTIC ACID 2019-04-27 23:20:00 Test Item Value Reference Range Interpretation Comments LACTIC ACID (test 6.2 mmol/L 0.4-2.0 HH ON AT 2318, code = LACT) B.LAB.AR CALLED TO [facility] . The report was conf irmed by read back emery cololiver Y,N:Y . Critica l values after the first occurrence are excluded. Specimen comments: SEPSIS WORKUPPT AND [id number] 22:26:00 Test Item Value Reference Interpretation Comments [...] prevention in p rosthetic heart 3.0-5.4 A SD mortality reduc tion THROMBOPLASTIN TIME 21.3 SECONDS 24-37.7 L THERAPEU TIC RANGE FOR PARTIAL (test code UNFRACTIO NATED HEPARIN = = PTT) 50.5-83.6 SEC T his test is not recommen ded to monitor low molecularweight heparin or danaparoid. Order LMWH test COLLECTION THROUGH LINES THAT HAVE BEEN PREVIOUSLY FLUS HEDWITH HEPARIN SHOULD BE AVOIDED DUE TO POSSIBLE HEPARINCONTAMIN ATION [id number] 22:26:00 Test Item Value Reference Range Interpretation Comments FIBRINOGEN (test code = FIB) 232 mg/dL 192-485 N CBC W/MANUAL [id number] 21:37:00 Test Item Value Reference Range Interpretation [...] (test code = MDIFF) INDICATED DIFF/SCN WBC [id number] 21:37:00 Test Item Value Reference Range Interpretation Comments TOTAL CELLS COUNTED (test code = #CELLS >100 TCC) SEGMENTED NEUTROPHILS (test code = % 40-75 SEG) LYMPHOCYTE (test code = LYMPH) % 18.7-40.6 MORPHOLOGY COMMENT (test code = MOC) ON SCAN NORMAL RBCS PLATELET ESTIMATE (test code = ON SCAN ADEQUATE PLTEST) CBC W/MANUAL [id number] 21:37:00 Test Item Value Reference Range Interpretation [...] (test code = MDIFF) INDICATED DIFF/SCN WBC [id number] 21:37:00 Test Item Value Reference Range Interpretation Comments TOTAL CELLS COUNTED (test code = #CELLS >100 TCC) SEGMENTED NEUTROPHILS (test code = % 40-75 SEG) LYMPHOCYTE (test code = LYMPH) % 18.7-40.6 MORPHOLOGY COMMENT (test code = MOC) ON SCAN NORMAL RBCS PLATELET ESTIMATE (test code = ON SCAN ADEQUATE PLTEST) CALCIUM [id number] 21:33:00 Test Item Value Reference Range Interpretation Comments CALCIUM IONIZED (test code = ELDON) 0.83 mmol/L 1.13-1.32 L - XR CHEST 1 [id number] 21:06:00 FAX: Oscar Mcleod MD [phone] [place]: E St: PRE Patient Name: AMAURI IRWIN Unit No: [id number] EXAMS: CPT CODE: [id number] XR CHEST 1 V 93069 - XR CHEST 1 V, 04/27/2019 8:26 [...] Oscar Mcleod MD Dictated Date/Time: 04/27/2019 (2105)Technologist: Jamse Hernandez Transcribed Date/Time: 04/27/2019(2105) By: [email or web address] Orig Print D/T: S: 04/27/2019 (2108) DILLON Solano NAME: KELSI[address] PHYS: EDI. Oscar Mcleod [place], [place] [address] : 1970 AGE: 48 SEX:F LOC: B.ERS PHONE #: [phone] EXAM DATE: 04/27/2019 STATUS: PRE ER FAX #: [phone] RAD NO: DC Dt: PAGE 1 Signed ReportCBC W/MANUAL [id number] 21:05:00 Test Item Value Reference Range Interpretation Comments WHITE BLOOD CELL 14.6 K/mm3 4.1-12.1 H (test code = WBC) RED BLOOD CELL (test 1.07 M/mm3 3.8-5.5 LL code = RBC) HEMOGLOBIN (test 3.2 G/DL 10.6-15.8 LL ON 04/27/19 AT code = HGB) 2028, B.LAB.AK CALLED TO [facility] ER. The report was confirmed b y read back protocols Y,N: Y. HEMATOCRIT (test 10.8 % 31.8-47.4 LL ON 04/27/19 AT code = HCT) 2029, B.LAB.AK CALLED TO [facility]. The report was confirmed by re [...] (test code = MDIFF) INDICATED DIFF/SCN PATHOLOGIST'S [id number] 21:05:00 Test Item Value Reference Range Interpretation Comments PATHOLOGIST'S FINDINGS (test code = EXTERNAL COMMENTS PATH) WBC [id number] 21:05:00 Test Item Value Reference Range Interpretation [...] code = ADEQ ON SCAN ADEQUATE PLTEST) [id number] 20:50:00 Test Item Value Reference Range Interpretation Comments TROPONIN-I 0.064 NG/ML 0.000-0.045 HH ON 04/27/19 AT 205, (test code = B.LAB.SRS2 CALL ED TO [facility]) ELVIRA. The repo rt was confirmed by re [...] changes in trop onin levelscharacter istic of SD. - XR ABDOMEN 1 [id number] 20:44:00 FAX: Oscar Mcleod MD [phone] [place]: E St: PRE Patient Name: AMAURI IRWIN Unit No: [id number] EXAMS: CPT CODE: [id number] XR ABDOMEN 1 V 60631 - XR ABDOMEN 1 V, 04/27/2019 7:44 [...] 04/27/2019 (2046) DILLON Solano NAME: AMAURI IRWIN [address] [place] [address] PHYS: Oscar Barnett MD [place], [place] [address] : 1970 AGE: 48 SEX: F LOC: ANGELO PHONE #: [phone] EXAM DATE: 04/27/2019 STATUS: PRE ER FAX #: [phone] RAD NO: DC Dt: PAGE 1 Signed [id number] 20:36:00 Test Item Value Reference Range Interpretation Comments MODALITY (test code = MOD) NC COMMENT DESCRIPTION VENOUS BLOOD GAS [id number] 20:36:00 Test Item Value Reference Range Interpretation Comments VENOUS BLOOD GAS PH (test code 7.16 pH units 7.32-7.42 L = PHV) VENOUS BLOOD GAS [id number] 20:36:00 Test Item Value Reference Range Interpretation Comments VENOUS BLOOD GAS PCO2 (test code = 23 mmHg 41-51 L PCO2V) VENOUS BLOOD GAS [id number] 20:36:00 Test Item Value Reference Range Interpretation Comments VENOUS BLOOD GAS PO2 (test code = 23 mmHg 25-40 L PO2V) VBG [id number] 20:36:00 Test Item Value Reference Range Interpretation Comments VBG HCO3 (test code = HCO3V) 8.3 mmol/L 24-28 L VENOUS BLOOD GAS [id number] 20:36:00 Test Item Value Reference Range Interpretation Comments VENOUS BLOOD GAS SITE (test code Venous Site DESCRIPTION = SITEV) COMPREHENSIVE METABOLIC [id number] 20:32:00 Test Item Value Reference Range Interpretation [...] code = LIPINDEX) MG Index/DL CBC W/MANUAL [id number] 20:30:00 Test Item Value Reference Range Interpretation Comments WHITE BLOOD CELL 14.6 K/mm3 4.1-12.1 H (test code = WBC) RED BLOOD CELL (test 1.07 M/mm3 3.8-5.5 LL code = RBC) HEMOGLOBIN (test 3.2 G/DL 10.6-15.8 LL ON 04/27/19 AT code = HGB) 2028, B.LAB.AK CALLED TO [facility]. The report was confirmed b y read back protocols Y,N: Y. HEMATOCRIT (test 10.8 % 31.8-47.4 LL ON 04/27/19 AT code = HCT) B.LAB.AK CALLED TO [facility]. The report was confirmed by re [...] (test code = MDIFF) INDICATED DIFF/SCN PATHOLOGIST'S [id number] 20:30:00 Test Item Value Reference Range Interpretation Comments PATHOLOGIST'S FINDINGS (test code = EXTERNAL COMMENTS PATH) WBC [id number] 20:30:00 Test Item Value Reference Range Interpretation Comments TOTAL CELLS COUNTED (test code = #CELLS >100 TCC) SEGMENTED NEUTROPHILS (test code = % 40-75 SEG) LYMPHOCYTE (test code = LYMPH) % 18.7-40.6 MORPHOLOGY COMMENT (test code = MOC) ON SCAN NORMAL RBCS PLATELET ESTIMATE (test code = ON SCAN ADEQUATE PLTEST) CBC W/MANUAL [id number] 20:30:00 Test Item Value Reference Range Interpretation Comments WHITE BLOOD CELL 14.6 K/mm3 4.1-12.1 H (test code = WBC) RED BLOOD CELL (test 1.07 M/mm3 3.8-5.5 LL code = RBC) HEMOGLOBIN (test 3.2 G/DL 10.6-15.8 LL ON 04/27/19 AT code = HGB) 2028, B.LAB.AK CALLED TO [facility] ER. The report was confirmed b y read back protocols Y,N: Y. HEMATOCRIT (test 10.8 % 31.8-47.4 LL ON 04/27/19 AT code = HCT) 2029, B.LAB.AK CALLED TO [facility]. The report was confirmed by re [...] (test code = MDIFF) INDICATED DIFF/SCN WBC [id number] 20:30:00 Test Item Value Reference Range Interpretation Comments TOTAL CELLS COUNTED (test code = #CELLS >100 TCC) SEGMENTED NEUTROPHILS (test code = % 40-75 SEG) LYMPHOCYTE (test code = LYMPH) % 18.7-40.6 MORPHOLOGY COMMENT (test code = MOC) ON SCAN NORMAL RBCS PLATELET ESTIMATE (test code = ON SCAN ADEQUATE PLTEST) PT AND [id number] 20:25:00 Test Item Value Reference Interpretation Comments [...] prevention in p rosthetic heart 3.0-5.4 A SD mortality reduc tion THROMBOPLASTIN TIME 30.8 SECONDS 24-37.7 N THERAPEU TIC RANGE FOR PARTIAL (test code UNFRACTIO NATED HEPARIN = = PTT) 50.5-83.6 SEC T his test is not recommen ded to monitor low molecularweight heparin or danaparoid. Order LMWH test COLLECTION THROUGH LINES THAT HAVE BEEN PREVIOUSLY FLUS HEDWITH HEPARIN SHOULD BE AVOIDED DUE TO POSSIBLE HEPARINCONTAMIN ATION Lactic Acid [id number] 16:54:00 Test Item Value Reference Range Interpretation Comments Lactic Acid Level (test code = 2524-7) 7.3 0.5-2.0 Critical Result S_LAC:7.3 Called to and read back by: JOHAN BARTLETT at: 04/27/2019 16:57:46 by:SALVADOR WESTFormerly [facility] HospitalAlcohols 2019-04-27 16:52:00 Test Item Value Reference Range Interpretation Comments Alcohols (test code = 5643-2) < 5 0-5 [facility]Prothrombin [id number] 16:46:00 Test Item Value Reference Range Interpretation Comments Prothrombin Time (test code = 5964-2) 20.0 10.0-12.9 H [facility] TexasINR International Normalized [id number] 16:46:00 Test Item Value Reference Range Interpretation [...] Thrombosis and Antiphospholipid syndrome Prevention of recurrent SD Sixth ACCP Consensus Conference on Antithrombotic Therapy,Chest 2001; 119:Supplement 8-21.[facility] TexasActivated Partial Thromboplast [id number] 16:46:00 Test Item Value Reference Range Interpretation Comments Activated Partial Thromboplast Time 30.5 25.1-36.5 (test code = 3173-2) [facility] [id number] 16:36:00 Test Item Value Reference Range Interpretation Comments Segmented Neutrophils (test code = 85 42-75 H 63438-8) [facility] TexasMxbqxbhqOlkfhesrlbs3452-07-38 16:36:00 Test Item Value Reference Range Interpretation Comments Lymphocytes (test code = 94637-9) 5 20-51 L [facility] TexasMonocytes2019-09-23 16:36:00 Test Item Value Reference Range Interpretation Comments Monocytes (test code = 39393-5) 6 2-9 [facility] TexasMtpgipwsKvxesiofwks3258-98-36 16:36:00 Test Item Value Reference Range Interpretation Comments Eosinophils (test code = 25565-8) 4 1-4 [facility] TexasNucleated Red Blood [id number] 16:36:00 Test Item Value Reference Range Interpretation Comments Nucleated Red Blood Cells (test code = 3 >0 H 24968-9) [facility] TexasPlatelet [id number] 16:36:00 Test Item Value Reference Range Interpretation Comments Platelet Estimate (test code = ADEQUATE ADEQUATE 83172-2) [facility] TexasPlatelet Fufymaicnj8694-04-99 16:36:00 Test Item Value Reference Range Interpretation Comments Platelet Morphology LARGE PLATELETS SEEN NORMAL (test code = 51176-1) [facility] TexasNormal RBC Uwhwrkvzfh2576-11-83 16:36:00 Test Item Value Reference Range Interpretation Comments Normal RBC Morphology (test SEE MORPHOLOGY NORMAL code = 49852-9) [facility] TexasCxntmvmeIgjrvzaddthvf6857-69-21 16:36:00 Test Item Value Reference Range Interpretation Comments Hypochromasia (test code = 728-6) 1+ NONE A [facility] TexasBlood Urea [id number] 16:13:00 Test Item Value Reference Range Interpretation Comments Blood Urea Nitrogen (test code = 66 8-26 H 3094-0) [facility] TexasCreatinine2019-09-23 16:13:00 Test Item Value Reference Range Interpretation Comments Creatinine (test code = 2160-0) 1.6 0.44-1.00 H [facility] TexasEGFR Bpfk4864-02-26 16:13:00 Test Item Value Reference Range Interpretation Comments EGFR Note (test code = 19908-8) 45.6 63.8-143.2 L eGFR (Estimated Glomerular Filtration Rate) eGFR calculation value obtained using the Hca Florida [facility] Monroe HospitalQuadratic (MCQ) equation. The reportable reference range isrecommended to be greater than 60 ml/min/1.73m. This is anestimation of the patient's GFR and clinical correlation isrecommended. This eGFR calculation does not account for race. This resultmay differ from other equations available. [facility] TexasAlbumin2019-09-23 16:13:00 Test Item Value Reference Range Interpretation Comments Albumin (test code = 1751-7) 1.5 3.5-5.0 L [facility] TexasTotal Hnwqqdexl4637-90-40 16:13:00 Test Item Value Reference Range Interpretation Comments Total Bilirubin (test code = 1975-2) 0.8 0.2-1.2 [facility] TexasAlkaline Rkznyaophlw2402-23-59 16:13:00 Test Item Value Reference Range Interpretation Comments Alkaline Phosphatase (test code = 129 32-91 H 6768-6) [facility] TexasTotal Vyylowt9566-65-60 16:13:00 Test Item Value Reference Range Interpretation Comments Total Protein (test code = 2885-2) 5.1 6.5-8.1 L [facility] TexasAlanine Aminotransferase (ALT/SGPT)2019-04-27 16:13:00 Test Item Value Reference Range Interpretation Comments Alanine Aminotransferase (ALT/SGPT) 21 7-55 (test code = 1742-6) [facility] TexasAspartate Amino Transf (AST/SGOT)2019-04-27 16:13:00 Test Item Value Reference Range Interpretation Comments Aspartate Amino Transf (AST/SGOT) (test 53 15-41 H code = 1920-8) [facility] TexasGlobulin2019-09-23 16:13:00 Test Item Value Reference Range Interpretation Comments Globulin (test code = 28777-0) 3.6 2.3-3.5 H [facility] TexasAlbumin/Globulin Kulwm1422-48-12 16:13:00 Test Item Value Reference Range Interpretation Comments Albumin/Globulin Ratio (test code = 0.4 1.2-2.2 L 1759-0) [facility] TexasAmylase Lsxvv7341-67-65 16:13:00 Test Item Value Reference Range Interpretation Comments Amylase Level (test code = 1798-8) 77 36-128 [facility] TexasLipase2019-09-23 16:13:00 Test Item Value Reference Range Interpretation Comments Lipase (test code = 3040-3) 62 22-51 [facility] [id number] 16:06:00 Test Item Value Reference Range Interpretation Comments White Blood Count (test code = 6690-2) 10.1 4.1-12.9 [facility] [id number] 16:06:00 Test Item Value Reference Range Interpretation Comments Red Blood Count (test code = 789-8) 0.85 3.64-5.20 L [facility] 16:06:00 Test Item Value Reference Range Interpretation Comments Hemoglobin (test code = 718-7) 2.7 10.6-15.6 LL ALERT (CRITICAL) VALUE -CALLED RESULTS TO AND VERBAL READ BACK FROMANICETO GANDARA @ [id number] 04/27/19 [facility]Hematocrit2019-[facility]-23 16:06:00 Test Item Value Reference Range Interpretation Comments Hematocrit (test code = 04181-8) 8.2 32.0-45.9 L [facility] Corpuscular Pjrffc4817-55-31 16:06:00 Test Item Value Reference Range Interpretation Comments Mean Corpuscular Volume (test code = 96.6 74.6-98.2 25253-8) [facility] Corpuscular Zvsvfndxav5045-23-79 16:06:00 Test Item Value Reference Range Interpretation Comments Mean Corpuscular Hemoglobin (test code 31.5 24.3-33.8 = 00139-6) [facility] Corpuscular Hgb Concent Hulm0619-96-91 16:06:00 Test Item Value Reference Range Interpretation Comments Mean Corpuscular Hgb Concent Diff (test 32.6 32.0-36.0 code = 97328-5) [facility] Cell Distribution Chowc3853-78-51 16:06:00 Test Item Value Reference Range Interpretation Comments Red Cell Distribution Width (test code 16.9 11.4-16.3 H = 67243-5) [facility] TexasPlatelet Kkxrm7928-21-98 16:06:00 Test Item Value Reference Range Interpretation Comments Platelet Count (test code = 777-3) 197 168-441 [facility] TexasMean Platelet Mgwghj8354-87-62 16:06:00 Test Item Value Reference Range Interpretation Comments Mean Platelet Volume (test code = 10.3 6.8-10.2 H 22249-0) [facility] TexasGranulocytes (%)2019-04-27 16:06:00 Test Item Value Reference Range Interpretation Comments Granulocytes (%) (test code = 20652-4) 74.3 39.8-78.1 [facility] TexasLymphocytes %2019-04-27 16:06:00 Test Item Value Reference Range Interpretation Comments Lymphocytes % (test code = 736-9) 5.3 14.1-47.6 L [facility] TexasMonocytes %2019-04-27 16:06:00 Test Item Value Reference Range Interpretation Comments Monocytes % (test code = 5905-5) 18.6 3.8-11.6 H [facility]-27 16:06:00 Test Item Value Reference Range Interpretation Comments Eosinophils % (test code = 713-8) 0.6 0.6-7.3 [facility]ophils %2019-04-27 16:06:00 Test Item Value Reference Range Interpretation Comments Basophils % (test code = 96078-7) 1.2 0.0-2.0 [facility] TexasGranulocytes #2019-04-27 16:06:00 Test Item Value Reference Range Interpretation Comments Granulocytes # (test code = 94557-7) 7.5 1.6-10.1 [facility] TexasLymphocytes #2019-04-27 16:06:00 Test Item Value Reference Range Interpretation Comments Lymphocytes # (test code = 31076-0) 0.5 0.6-6.1 L [facility] TexasMonocytes #2019-04-27 16:06:00 Test Item Value Reference Range Interpretation Comments Monocytes # (test code = 742-7) 1.9 0.2-1.5 H [facility] TexasEosinophils #2019-04-27 16:06:00 Test Item Value Reference Range Interpretation Comments Eosinophils # (test code = 711-2) 0.1 0.0-0.9 [facility] TexasBasophils #2019-04-27 16:06:00 Test Item Value Reference Range Interpretation Comments Basophils # (test code = 53456-8) 0.1 0.0-0.2 [facility] TexasManual Mqnsrxhffirg4268-29-20 16:06:00 Test Item Value Reference Range Interpretation Comments Manual Differential (test code = Manual YES Differential) [facility] Wpivn1623-59-86 16:05:00 Test Item Value Reference Range Interpretation Comments Sodium Level (test code = 2951-2) 131 135-144 L [facility] TexasPotassium Wsrcm7645-06-83 16:05:00 Test Item Value Reference Range Interpretation Comments Potassium Level (test code = 2823-3) 4.2 3.5-5.1 [facility] TexasChloride Uuejc8508-14-42 16:05:00 Test Item Value Reference Range Interpretation Comments Chloride Level (test code = 2075-0) 105 101-111 [facility] TexasCarbon Dioxide Tfvov4540-89-22 16:05:00 Test Item Value Reference Range Interpretation Comments Carbon Dioxide Level (test code = 14 22-32 L 8-9) [facility] TexasAnion Yja6078-35-72 16:05:00 Test Item Value Reference Range Interpretation Comments Anion Gap (test code = 27982-3) 16.2 10-20 [facility] TexasGlucose Snlxu1221-65-64 16:05:00 Test Item Value Reference Range Interpretation Comments Glucose Level (test code = 2345-7) 119 65-99 H Prediabetes 100 to 125 mg/dlDiabetes 126 mg/dl or higher Prediabetes refers to individuals with plasma glucose levelsintermediate between those considered normal and thoseconsidered diabetic and is also referred to as impairedglucose tolerance (IGT) or impaired fasting glucose (IFG). [facility] TexasCalcium Nxzkc6944-58-34 16:05:00 Test Item Value Reference Range Interpretation Comments Calcium Level (test code = 48023-3) 7.2 8.9-10.3 L [facility] TexasBlood Duyeksw7966-66-59 14:23:00 Test Item Value Reference Range Interpretation Comments Blood Culture (test NO GROWTH AT 5 DAYS. code = 600-7) [facility] Wlevytg3109-69-03 14:23:00 Test Item Value Reference Range Interpretation Comments Blood Culture (test NO GROWTH AT 5 DAYS. code = 600-7) [facility] TexasTumor Marker Alpha Eicbvhgtznj7404-08-94 08:25:00 Test Item Value Reference Range Interpretation Comments Tumor Marker Alpha Fetoprotein (test 3.1 0.0-8.3 code = 88940-3) [facility] Electrochemiluminescence Immunoassay(ECLIA) Values obtained with different assay methods or kits cannotbe used interchangeably. Results cannot be interpreted asabsolute evidence of the presence or absence of malignantdisease. This test is not interpretable in females.Performed at: [address] [id number] Director: Dagoberto Rodriguez MD, Phone: [phone] Central TexasMiscellaneous Test Bbpqiuc2167-55-66 14:03:00 Test Item Value Reference Range Interpretation Comments Miscellaneous Test Comment (test code = YES YES Miscellaneous Test Comment) [facility] TexasErythrocyte Sedimentation Liok4675-16-96 14:03:00 Test Item Value Reference Range Interpretation Comments Erythrocyte Sedimentation Rate (test 117 0-20 H code = 4537-7) [facility] TexasMiscellaneous Test Wyysijm7754-87-32 14:03:00 Test Item Value Reference Range Interpretation Comments Miscellaneous Test Comment (test code = YES YES Miscellaneous Test Comment) [facility] TexasErythrocyte Sedimentation Tpof3547-42-34 14:03:00 Test Item Value Reference Range Interpretation Comments Erythrocyte Sedimentation Rate (test 117 0-20 H code = 4537-7) [facility] Ehftnvw6695-59-54 05:49:00 Test Item Value Reference Range Interpretation Comments Blood Culture (test NO GROWTH AT 5 DAYS. code = 600-7) [facility] Cbmbwbw8721-72-12 05:49:00 Test Item Value Reference Range Interpretation Comments Blood Culture (test NO GROWTH AT 5 DAYS. code = 600-7) [facility] Ekgyjjf5496-55-84 05:49:00 Test Item Value Reference Range Interpretation Comments Blood Culture (test NO GROWTH AT 5 DAYS. code = 600-7) [facility] Yvert7407-62-24 05:16:00 Test Item Value Reference Range Interpretation Comments Sodium Level (test code = 2951-2) 129 135-144 L [facility] TexasPotassium Fkiqi4580-70-08 05:16:00 Test Item Value Reference Range Interpretation Comments Potassium Level (test code = 2823-3) 3.1 3.5-5.1 L [facility] TexasChloride Hpiti4901-02-41 05:16:00 Test Item Value Reference Range Interpretation Comments Chloride Level (test code = 2075-0) 107 101-111 [facility] TexasCarbon Dioxide Fimld6006-62-11 05:16:00 Test Item Value Reference Range Interpretation Comments Carbon Dioxide Level (test code = 15 22-32 L 2027-9) [facility] TexasAnion Rwa0484-56-77 05:16:00 Test Item Value Reference Range Interpretation Comments Anion Gap (test code = 20718-9) 10.1 10-20 [facility] TexasGlucose Pqmpj1735-98-91 05:16:00 Test Item Value Reference Range Interpretation Comments Glucose Level (test code = 2345-7) 117 65-99 H Prediabetes 100 to 125 mg/dlDiabetes 126mg/dl or higher Prediabetes refers to individuals with plasma glucose levelsintermediate between those considered normal and thoseconsidered diabetic and is also referred to as impairedglucose tolerance (IGT) or impaired fasting glucose (IFG). [facility] TexasBlood Urea Nrrdbkeu7775-94-91 05:16:00 Test Item Value Reference Range Interpretation Comments Blood Urea Nitrogen (test code = 15 03-30 3094-0) [facility] TexasCreatinine2019-09-12 05:16:00 Test Item Value Reference Range Interpretation Comments Creatinine (test code = 2160-0) 1.0 0.44-1.00 [facility] TexasEGFR Vkwc1653-54-20 05:16:00 Test Item Value Reference Range Interpretation Comments EGFR Note (test code = 53943-9) 90.1 63.8-143.2 eGFR (Estimated Glomerular Filtration Rate) eGFR calculation value obtained using the [facility] HospitalQuadratic (Q) equation. The reportable reference range isrecommended to be greater than 60 ml/min/1.73m. This is anestimation of the patient's GFR and clinical correlation isrecommended. This eGFR calculation does not account for race. This resultmay differ from other equations available. [facility] TexasCalcium Psvly3996-72-54 05:16:00 Test Item Value Reference Range Interpretation Comments Calcium Level (test code = 52337-5) 7.6 8.9-10.3 L [facility] TexasWhite Blood Bfpvp2054-23-27 05:05:00 Test Item Value Reference Range Interpretation Comments White Blood Count (test code = 6690-2) 8.1 4.1-12.9 [facility] TexasRed Blood Uvrrd0282-73-33 05:05:00 Test Item Value Reference Range Interpretation Comments Red Blood Count (test code = 789-8) 2.54 3.64-5.20 L [facility] TexasHemoglobin2019-09-12 05:05:00 Test Item Value Reference Range Interpretation Comments Hemoglobin (test code = 718-7) 8.0 10.6-15.6 L [facility] TexasHematocrit2019-09-12 05:05:00 Test Item Value Reference Range Interpretation Comments Hematocrit (test code = 61587-3) 23.3 32.0-45.9 L [facility] Corpuscular Fetpov5985-10-36 05:05:00 Test Item Value Reference Range Interpretation Comments Mean Corpuscular Volume (test code = 91.8 74.6-98.2 50686-2) [facility] Corpuscular Fpakmwnplc0352-46-89 05:05:00 Test Item Value Reference Range Interpretation Comments Mean Corpuscular Hemoglobin (test code 31.6 24.3-33.8 = 85980-9) [facility] Corpuscular Hgb Concent Chrx7891-42-09 05:05:00 Test Item Value Reference Range Interpretation Comments Mean Corpuscular Hgb Concent Diff (test 34.4 32.0-36.0 code = 09626-5) [facility] TexasRed Cell Distribution Etotz0240-46-55 05:05:00 Test Item Value Reference Range Interpretation Comments Red Cell Distribution Width (test code 15.6 11.4-16.3 = 05662-1) [facility] TexasPlatelet Kdofs9726-67-47 05:05:00 Test Item Value Reference Range Interpretation Comments Platelet Count (test code = 777-3) 179 168-441 [facility] Platelet Feapra6435-30-61 05:05:00 Test Item Value Reference Range Interpretation Comments Mean Platelet Volume (test code = 8.9 6.8-10.2 95448-0) [facility] TexasGranulocytes (%)2019-04-16 05:05:00 Test Item Value Reference Range Interpretation Comments Granulocytes (%) (test code = 37475-4) 79.9 39.8-78.1 H [facility] TexasLymphocytes %2019-04-16 05:05:00 Test Item Value Reference Range Interpretation Comments Lymphocytes % (test code = 736-9) 2.6 14.1-47.6 L [facility] TexasMonocytes %2019-04-16 05:05:00 Test Item Value Reference Range Interpretation Comments Monocytes % (test code = 5905-5) 15.3 3.8-11.6 H [facility] TexasEosinophils %2019-04-16 05:05:00 Test Item Value Reference Range Interpretation Comments Eosinophils % (test code = 713-8) 1.6 0.6-7.3 [facility]Basophils %2019-04-16 05:05:00 Test Item Value Reference Range Interpretation Comments Basophils % (test code = 96519-4) 0.6 0.0-2.0 [facility] TexasGranulocytes #2019-04-16 05:05:00 Test Item Value Reference Range Interpretation Comments Granulocytes # (test code = 11573-6) 6.5 1.6-10.1 [facility] TexasLymphocytes #2019-04-16 05:05:00 Test Item Value Reference Range Interpretation Comments Lymphocytes # (test code = 91023-9) 0.2 0.6-6.1 L [facility] HospitalMonocytes #2019-04-16 05:05:00 Test Item Value Reference Range Interpretation Comments Monocytes # (test code = 742-7) 1.2 0.2-1.5 [facility] HospitalEosinophils #2019-04-16 05:05:00 Test Item Value Reference Range Interpretation Comments Eosinophils # (test code = 711-2) 0.1 0.0-0.9 [facility] TexasBasophils #2019-04-16 05:05:00 Test Item Value Reference Range Interpretation Comments Basophils # (test code = 60449-7) 0.0 0.0-0.2 [facility] TexasManual Fgpeossmtwaz2821-92-96 05:05:00 Test Item Value Reference Range Interpretation Comments Manual Differential (test code = Manual NO Differential) [facility] TexasBlood Tnootxq2062-49-23 08:16:00 Test Item Value Reference Range Interpretation Comments Blood Culture (test code NO GROWTH AT 48 HRS = 600-7) [facility] Ublvcz0418-61-59 07:38:00 Test Item Value Reference Range Interpretation Comments Vancomycin Level Trough (test code = 19.8 10-15 H 4092-3) [facility] Level Kiclxc3419-30-25 07:38:00 Test Item Value Reference Range Interpretation Comments Vancomycin Level Trough (test code = 19.8 10-15 H 4092-3) [facility] TexasAlbumin2019-09-08 05:51:00 Test Item Value Reference Range Interpretation Comments Albumin (test code = 1751-7) 2.1 3.5-5.0 L [facility] Zjxyfgcmc9094-05-73 05:51:00 Test Item Value Reference Range Interpretation Comments Total Bilirubin (test code = 1975-2) 1.1 0.2-1.2 [facility] TexasAlkaline Mdbtliuikxa7653-63-83 05:51:00 Test Item Value Reference Range Interpretation Comments Alkaline Phosphatase (test code = 108 32-91 H 6768-6) [facility] TexasTotal Jrnmhrv4828-61-38 05:51:00 Test Item Value Reference Range Interpretation Comments Total Protein (test code = 2885-2) 5.9 6.5-8.1 L [facility] TexasAlanine Aminotransferase (ALT/SGPT)2019-04-12 05:51:00 Test Item Value Reference Range Interpretation Comments Alanine Aminotransferase (ALT/SGPT) 33 7-55 (test code = 1742-6) [facility] TexasAspartate Amino Transf (AST/SGOT)2019-04-12 05:51:00 Test Item Value Reference Range Interpretation Comments Aspartate Amino Transf (AST/SGOT) (test 64 15-41 H code = 1920-8) [facility] TexasGlobulin2019-09-08 05:51:00 Test Item Value Reference Range Interpretation Comments Globulin (test code = 47227-0) 3.8 2.3-3.5 H [facility] TexasAlbumin/Globulin Vkopm1513-12-97 05:51:00 Test Item Value Reference Range Interpretation Comments Albumin/Globulin Ratio (test code = 0.6 1.2-2.2 L 1759-0) [facility] TexasUrine Rcjnrqn9045-45-17 06:12:00 Test Item Value Reference Range Interpretation Comments Urine Culture (test Organism: Escherichia code = 630-4) [facility] Lnhwujf8028-64-63 06:12:00 Test Item Value Reference Range Interpretation Comments Urine Culture (test Organism: Escherichia code = 630-4) Coli [facility] TexasHemoglobin2019-09-05 15:43:00 Test Item Value Reference Range Interpretation Comments Hemoglobin (test code = 718-7) 8.0 10.6-15.6 L [facility] TexasHematocrit2019-09-05 15:43:00 Test Item Value Reference Range Interpretation Comments Hematocrit (test code = 05010-2) 24.1 32.0-45.9 L [facility] TexasHemoglobin2019-09-05 15:43:00 Test Item Value Reference Range Interpretation Comments Hemoglobin (test code = 718-7) 8.0 10.6-15.6 L [facility] TexasHematocrit2019-09-05 15:43:00 Test Item Value Reference Range Interpretation Comments Hematocrit (test code = 92324-6) 24.1 32.0-45.9 L [facility] Ktjxhle6901-29-58 08:19:00 Test Item Value Reference Range Interpretation Comments Blood Culture (test Organism: Group G code = 600-7) Streptococcus [facility] Zxxqkku7163-96-34 08:19:00 Test Item Value Reference Range Interpretation Comments Blood Culture (test Organism: Group G code = 600-7) Streptococcus [facility] TexasGlucose (Fingerstick)2019-04-08 17:31:00 Test Item Value Reference Range Interpretation Comments Glucose (Fingerstick) (test code = 207 65-99 H 51480-1) [facility] TexasGlucose (Fingerstick)2019-04-08 17:31:00 Test Item Value Reference Range Interpretation Comments Glucose (Fingerstick) (test code = 207 65-99 H 09122-0) [facility] Fluid Segmented Coirrnfrzkj8265-11-17 15:46:00 Test Item Value Reference Range Interpretation Comments Body Fluid Segmented Neutrophils (test 96 code = 63287-0) [facility] Fluid Vjamdthqtpc0533-40-11 15:46:00 Test Item Value Reference Range Interpretation Comments Body Fluid Lymphocytes (test code = 4 97687-8) [facility]#CELLS ISUFVUK2663-89-63 15:46:00 Test Item Value Reference Range Interpretation Comments #CELLS COUNTED (test code = #CELLS 100 COUNTED) [facility] Segmented Kxyymtbtzdi1358-26-90 15:46:00 Test Item Value Reference Range Interpretation Comments Body Fluid Segmented Neutrophils (test 96 code = 53628-0) [facility] Skitlaayehe3230-99-32 15:46:00 Test Item Value Reference Range Interpretation Comments Body Fluid Lymphocytes (test code = 4 87953-3) [facility]#CELLS FLGBMJW8746-45-48 15:46:00 Test Item Value Reference Range Interpretation Comments #CELLS COUNTED (test code = #CELLS 100 COUNTED) [facility] Fluid Jyii6088-44-61 15:31:00 Test Item Value Reference Range Interpretation Comments Body Fluid Type (test code = PERITONEAL FLUID 77118-0) [facility] JPK0569-14-32 15:31:00 Test Item Value Reference Range Interpretation Comments Body Fluid RBC (test code = 02742-1) 200 0-10 H [facility] [id number] 15:31:00 Test Item Value Reference Range Interpretation Comments Body Fluid WBC (test code = 55132-5) 2200 0-20 H [facility]#JMCCBDNYXS7481-23-30 15:31:00 Test Item Value Reference Range Interpretation Comments #CONTAINERS (test code = #CONTAINERS) 1 [facility] TOTAL DMNYRP9416-48-31 15:31:00 Test Item Value Reference Range Interpretation Comments BF TOTAL VOLUME (test code = BF TOTAL 1000 VOLUME) [facility]PECIMEN RRVRBPHO9250-33-21 15:31:00 Test Item Value Reference Range Interpretation Comments SPECIMEN ADEQUACY (test code = ADEQUATE SPECIMEN ADEQUACY) [facility] Okrt7132-04-72 15:31:00 Test Item Value Reference Range Interpretation Comments Body Fluid Type (test code = PERITONEAL FLUID 91690-2) [facility] [id number] 15:31:00 Test Item Value Reference Range Interpretation Comments Body Fluid RBC (test code = 09065-5) 200 0-10 H [facility] Fluid [id number] 15:31:00 Test Item Value Reference Range Interpretation Comments Body Fluid WBC (test code = 50302-3) 2200 0-20 H [facility]#WQLGOBNUBX5723-84-46 15:31:00 Test Item Value Reference Range Interpretation Comments #CONTAINERS (test code = #CONTAINERS) 1 [facility] TOTAL EFOTDO0624-06-43 15:31:00 Test Item Value Reference Range Interpretation Comments BF TOTAL VOLUME (test code = BF TOTAL 1000 VOLUME) [facility]PEC[facility]EN GCKOGUNH2507-84-03 15:31:00 Test Item Value Reference Range Interpretation Comments SPECIMEN ADEQUACY (test code = ADEQUATE SPECIMEN ADEQUACY) [facility] Smear Pathologist Uyivzb6616-92-49 14:25:00 Test Item Value Reference Range Interpretation Comments Blood Smear Pathologist PANCYTOPENIA. Review (test code = [place] [address]-6) BLASTS, SCHISTOCYTES, OR PLATELET CLUMPS IDENTFIED. DR. REEVES; [facility]Blood Smear Pathologist Wyiiih2108-64-16 14:25:00 Test Item Value Reference Range Interpretation Comments Blood Smear Pathologist PANCYTOPENIA. Review (test code = [place] [address]-4) BLASTS, SCHISTOCYTES, OR PLATELET CLUMPS IDENTFIED. DR. REEVES; LAB[facility] DallasCholesterol Zateo0744-74-01 13:03:00 Test Item Value Reference Range Interpretation Comments Cholesterol Level (test code = 2093-3) 71 0-200 [facility] TexasTriglycerides Jcwvu9371-49-97 13:03:00 Test Item Value Reference Range Interpretation Comments Triglycerides Level (test code = 34 10-150 2571-8) Normal triglycerides: <150 mg/dLBorderline-high triglycerides: 150-199 mg/dLHigh triglycerides: 200-499 mg/dLVery high triglycerides: > or = 500 mg/dLAdventhealth Central TexasHDL Rbiwwglkysh9981-15-75 13:03:00 Test Item Value Reference Range Interpretation Comments HDL Cholesterol (test code = 2085-9) 23.1 40-130 L [facility]/E8086-58-46 13:03:00 Test Item Value Reference Range Interpretation Comments N/A (test code = 71525-6) 3.1 0.0-5.0 [facility] TexasLDL Cholesterol (Measured)2019-04-08 13:03:00 Test Item Value Reference Range Interpretation Comments LDL Cholesterol (Measured) (test code = 37 0-130 07746-9) *LDL Cholesterol <130 mg/dL, No CHD or CHD Risk Equivalent <100 mg/dL, With CHD or CHD Risk Equivalent LDL Cholesterol Therapeutic Goal:100 mg/dL or Less if CHD or CHD Risk Equivalent Present<130 mg/dL if No CHD or REq; 2 or more Risk Factors<160 mg/dL if No CHD or REq; 0-1 Risk Factors Reference: ATP III, SALVATORE, 285:19, 2486-97, 2000.[facility] TexasThyroid Stimulating Hormone (TSH)2019-04-08 13:03:00 Test Item Value Reference Range Interpretation Comments Thyroid Stimulating Hormone (TSH) (test 1.83 0.34-5.6 code = 3015-5) [facility] TexasCholesterol Fonyw5695-73-02 13:03:00 Test Item Value Reference Range Interpretation Comments Cholesterol Level (test code = 2093-3) 71 0-200 [facility] TexasTriglycerides Gsktv1850-03-33 13:03:00 Test Item Value Reference Range Interpretation Comments Triglycerides Level (test code = 34 10-150 2571-8) Normal triglycerides: <150 mg/dLBorderline-high triglycerides: 150-199 mg/dLHigh triglycerides: 200-499 mg/dLVery high triglycerides: > or = 500 mg/dLAdventhealth Central TexasHDL Lxjqbdgvdcu4677-53-17 13:03:00 Test Item Value Reference Range Interpretation Comments HDL Cholesterol (test code = 2085-9) 23.1 40-130 L [facility] TexasN/I0573-43-51 13:03:00 Test Item Value Reference Range Interpretation Comments N/A (test code = 12772-5) 3.1 0.0-5.0 [facility] TexasLDL Cholesterol (Measured)2019-04-08 13:03:00 Test Item Value Reference Range Interpretation Comments LDL Cholesterol (Measured) (test code = 37 0-130 06758-3) *LDL Cholesterol <130 mg/dL, No CHD or CHD Risk Equivalent <100 mg/dL, With CHD or CHD Risk Equivalent LDL Cholesterol Therapeutic Goal:100 mg/dL or Less if CHD or CHD Risk Equivalent Present<130 mg/dL if No CHD or REq; 2 or more Risk Factors<160 mg/dL if No CHD or REq; 0-1 Risk Factors Reference: ATP III, SALVATORE, 285:19, 2486-97, 2000.[facility] TexasThyroid Stimulating Hormone (TSH)2019-04-08 13:03:00 Test Item Value Reference Range Interpretation Comments Thyroid Stimulating Hormone (TSH) (test 1.83 0.34-5.6 code = 3015-5) [facility] TexasHemoglobin A1c Fopovko8837-82-90 12:52:00 Test Item Value Reference Range Interpretation Comments Hemoglobin A1c Percent (test code = 5.10 4.0-5.6 4548-4) Prediabetes 5.7% to 6.4%Diabetes 6.5% orhigher Elevated levels of HbA1c suggest the need for moreaggressive treatment of glycemia. The [place] DiabetesAssociation recommends that a primary goal of therapy shouldbe a HbA1c of <7% and that physicians should reevaluate thetreatment regimen in patients with HbA1c values consistently>8%. [facility]/[id number] 12:52:00 Test Item Value Reference Range Interpretation Comments N/A (test code = 48972-6) 101 A1C Result% Estimated Avg.Glucose (EAG) 6.0% 126 mg/dL 6.5% 140 mg/dL 7.0% 154 mg/dL 7.5% 169 mg/dL 8.0% 183 mg/dL 8.5% 197 mg/dL 9.0% 212 mg/dL 9.5% 226 mg/dL 10.0% 240 mg/dL Reference: ross Montero, Diabetes Care 31: 1437, 2008.[facility] TexasHemoglobin A1c Dwiumdt7364-11-03 12:52:00 Test Item Value Reference Range Interpretation Comments Hemoglobin A1c Percent (test code = 5.10 4.0-5.6 4548-4) Prediabetes 5.7% to 6.4%Diabetes 6.5% or higher Elevated levels of HbA1c suggest the need for moreaggressive treatment of glycemia. The [place] DiabetesAssociation recommends that a primary goal of therapy shouldbe a HbA1c of <7% and that physicians should reevaluate thetreatment regimen in patients with HbA1c values consistently>8%. [facility]/[id number] 12:52:00 Test Item Value Reference Range Interpretation Comments N/A (test code = 92879-7) 101 A1C Result% Estimated Avg.Glucose (EAG) 6.0% 126 mg/dL 6.5% 140 mg/dL 7.0% 154 mg/dL 7.5% 169 mg/dL 8.0% 183 mg/dL 8.5% 197 mg/dL 9.0% 212 mg/dL 9.5% 226 mg/dL10.0% 240 mg/dL Reference: ross Montero, Diabetes Care 31: 1437, 2008. [facility]/[id number] 12:25:00 Test Item Value Reference Range Interpretation Comments N/A (test code = N/A) CALCULATE BELOW CORONARY HEART DISEASE (CHD) RISK FACTORS: +1, Age (y): Men, >45 Women, >55 or Premature Menopause Without Estrogen Therapy +1, Family History of Premature CHD +1, Current Cigarette Smoking +1, Hypertension +1, Low HDL-C: <40 mg/dL -1, High HDL-C: 60mg/dL or More Total RFs CHD Risk Equivalents (REq): Diabetes Other Forms of Atherosclerotic Disease Lipid testing of hospitalized patients may be inaccurate dueto fluctuations from the patients normal metabolic state. Accurate triglyceride and LDL testing requires a fastingspecimen. If non-fasting cholesterol > or = 200 mg/dL orHDL is < 40 mg/dL, fasting lipid panel is recommended.Repeat testing recommended prior to treatment. Desirable [facility][id number] 12:25:00 Test Item Value Reference Range Interpretation [...] recommended.Repeat testing recommended prior to treatment. Desirable LevelsAd[facility] TexasProthrombin Vcqj5510-16-90 11:12:00 Test Item Value Reference Range Interpretation Comments Prothrombin Time (test code = 5964-2) 15.0 10.0-12.9 H [facility] TexasINR International Normalized [id number] 11:12:00 Test Item Value Reference Range Interpretation [...] Consensus Conference on Antithrombotic Therapy,Chest 2001; 119:Supplement 8-21.[facility] TexasActivated Partial Thromboplast Dcrs5787-24-52 11:12:00 Test Item Value Reference Range Interpretation Comments Activated Partial Thromboplast Time 35.1 25.1-36.5 (test code = 3173-2) [facility] [id number] 01:06:00 Test Item Value Reference Range Interpretation Comments Urine Color (test code = 34008-4) [place] YELLOW A Substances that cause abnormal urine color may affect thereadability of test pads on urinalysis reagent strips. Thesesubstances include visible levels of blood or bilirubin anddrugs containing dyes (e.g., Pyridium, Azo Gantrisin, AzoGantanol), nitrofurantion (Macrodantin, Furadantin), orriboflavin.[facility] TexasUrine Wpakekv6435-29-39 01:06:00 Test Item Value Reference Range Interpretation Comments Urine Clarity (test code = 89601-0) Cloudy CLEAR A [facility] Frwddeo4230-06-97 01:06:00 Test Item Value Reference Range Interpretation Comments Urine Glucose (test code = 5792-7) NEGATIVE NEGATIVE [facility] Qcfydjvtc5592-93-40 01:06:00 Test Item Value Reference Range Interpretation Comments Urine Bilirubin (test code = 5770-3) SMALL NEGATIVE A [facility] Dzjzqwo3508-55-53 01:06:00 Test Item Value Reference Range Interpretation Comments Urine Ketones (test code = 5797-6) NEGATIVE NEGATIVE [facility] Specific Tgardsu6060-44-88 01:06:00 Test Item Value Reference Range Interpretation Comments Urine Specific Lena (test code = 1.049 1.002-1.030 H 5811-5) [facility] Qrzmd0464-04-57 01:06:00 Test Item Value Reference Range Interpretation Comments Urine Blood (test code = 47262-1) LARGE NEGATIVE A [facility] [id number] 01:06:00 Test Item Value Reference Range Interpretation Comments Urine pH (test code = 5803-2) 5 5.0-8.0 [facility] [id number] 01:06:00 Test Item Value Reference Range Interpretation Comments Urine Protein (test code = 5804-0) NEGATIVE NEGATIVE [facility] Eyuskbaxxlzh7274-80-61 01:06:00 Test Item Value Reference Range Interpretation Comments Urine Urobilinogen (test code = 2.0 NEGATIVE A 40883-9) [facility] Mzlzqrd0437-78-15 01:06:00 Test Item Value Reference Range Interpretation Comments Urine Nitrite (test code = 5802-4) NEGATIVE NEGATIVE [facility] Leukocyte Lsxcowuk3003-98-21 01:06:00 Test Item Value Reference Range Interpretation Comments Urine Leukocyte Esterase (test code = 250 NEGATIVE A 03425-6) [facility] [id number] 01:06:00 Test Item Value Reference Range Interpretation Comments Urine RBC (test code = 07321-6) 15-30 0-2 A [facility] [id number] 01:06:00 Test Item Value Reference Range Interpretation Comments Urine WBC (test code = 75890-4) 6-14 0-5 A "Urine Culture test was reflexed and added to this specimen"[facility] Squamous Epithelial Leirv1057-33-27 01:06:00 Test Item Value Reference Range Interpretation Comments Urine Squamous Epithelial Cells (test 3-5 0-5 code = 76147-5) [facility] Vcscgxcp3789-25-53 01:06:00 Test Item Value Reference Range Interpretation Comments Urine Bacteria (test code = 17719-6) RARE NEGATIVE A [facility] WBC [id number] 01:06:00 Test Item Value Reference Range Interpretation Comments Urine WBC Clumps (test code = 04505-4) 6-14 NEGATIVE A [facility] Amorphous Skfbvjhq1283-34-15 01:06:00 Test Item Value Reference Range Interpretation Comments Urine Amorphous Crystals (test code = RARE NEGATIVE A 95190-4) [facility] Uvkxb4280-05-14 01:06:00 Test Item Value Reference Range Interpretation Comments Urine Mucus (test code = 32715-1) 1+ NEGATIVE [facility] Yqing0244-73-44 01:06:00 Test Item Value Reference Range Interpretation Comments Urine Color (test code = 85234-1) [place] YELLOW A Substances that cause abnormal urine color may affect thereadability of test pads on urinalysis reagent strips. Thesesubstances include visible levels of blood or bilirubin anddrugs containing dyes (e.g., Pyridium, Azo Gantrisin, AzoGantanol), nitrofurantion (Macrodantin, Furadantin), orriboflavin.[facility] Ufisbmc1296-80-87 01:06:00 Test Item Value Reference Range Interpretation Comments Urine Clarity (test code = 10942-8) Cloudy CLEAR A [facility] Vstipub8801-14-05 01:06:00 Test Item Value Reference Range Interpretation Comments Urine Glucose (test code = 5792-7) NEGATIVE NEGATIVE [facility] Hayofaizk7454-07-17 01:06:00 Test Item Value Reference Range Interpretation Comments Urine Bilirubin (test code = 5770-3) SMALL NEGATIVE A [facility] Cncgtee2893-04-09 01:06:00 Test Item Value Reference Range Interpretation Comments Urine Ketones (test code = 5797-6) NEGATIVE NEGATIVE [facility] Specific Erzhquq5980-91-55 01:06:00 Test Item Value Reference Range Interpretation Comments Urine Specific Lena (test code = 1.049 1.002-1.030 H 5811-5) [facility] Khpxh8718-15-17 01:06:00 Test Item Value Reference Range Interpretation Comments Urine Blood (test code = 70433-9) LARGE NEGATIVE A [facility] [id number] 01:06:00 Test Item Value Reference Range Interpretation Comments Urine pH (test code = 5803-2) 5 5.0-8.0 [facility] Jdwgxru4448-55-07 01:06:00 Test Item Value Reference Range Interpretation Comments Urine Protein (test code = 5804-0) NEGATIVE NEGATIVE [facility] Nltoxlqspynn6169-01-66 01:06:00 Test Item Value Reference Range Interpretation Comments Urine Urobilinogen (test code = 2.0 NEGATIVE A 07171-5) [facility] Ylcscpd4270-16-50 01:06:00 Test Item Value Reference Range Interpretation Comments Urine Nitrite (test code = 5802-4) NEGATIVE NEGATIVE [facility] Leukocyte Apwhvxgu9507-13-20 01:06:00 Test Item Value Reference Range Interpretation Comments Urine Leukocyte Esterase (test code = 250 NEGATIVE A 18022-0) [facility] [id number] 01:06:00 Test Item Value Reference Range Interpretation Comments Urine RBC (test code = 03509-3) 15-30 0-2 A [facility] [id number] 01:06:00 Test Item Value Reference Range Interpretation Comments Urine WBC (test code = 43623-3) 6-14 0-5 A "Urine Culture test was reflexed and added to this specimen"[facility] Squamous Epithelial Jajac9788-32-38 01:06:00 Test Item Value Reference Range Interpretation Comments Urine Squamous Epithelial Cells (test 3-5 0-5 code = 59659-3) [facility] Jufgvwpg5272-45-93 01:06:00 Test Item Value Reference Range Interpretation Comments Urine Bacteria (test code = 88327-7) RARE NEGATIVE A [facility] WBC Jnajys8787-11-40 01:06:00 Test Item Value Reference Range Interpretation Comments Urine WBC Clumps (test code = 04544-6) 6-14 NEGATIVE A [facility] Amorphous Zcgcdflv7031-86-06 01:06:00 Test Item Value Reference Range Interpretation Comments Urine Amorphous Crystals (test code = RARE NEGATIVE A 62782-7) [facility] Sppnf6570-29-95 01:06:00 Test Item Value Reference Range Interpretation Comments Urine Mucus (test code = 02716-0) 1+ NEGATIVE [facility] (1&2) Ag and Ab, 4th Phvdbhhkff6700-62-90 22:41:00 Test Item Value Reference Range Interpretation Comments HIV (1&2) Ag and Ab, 4th NONREACTIVE NONREACTIVE Generation (test code = 19384-9) Limitations -The interpretation of specimens with a [...] patients may give false positive test results. [facility]HIV (1&2) Ag and Ab, 4th Iagndeufrp7631-92-42 22:41:00 Test Item Value Reference Range Interpretation Comments HIV (1&2) Ag and Ab, 4th NONREACTIVE NONREACTIVE Generation (test code = 66114-1) Limitations -The interpretation of specimens with a [...] patients may give false positive test results. [facility] TexasLactic Acid [id number] 22:16:00 Test Item Value Reference Range Interpretation Comments Lactic Acid Level (test code = 2524-7) 2.2 0.5-2.0 Critical Result S_LAC:2.2 Called to and read back by: ADAL POMPA at: 04/07/2019 22:19:39 by:[facility] Texasegmented Neutrophils 2019-04-07 19:12:00 Test Item Value Reference Range Interpretation Comments Segmented Neutrophils (test code = 42 42-75 50334-8) [facility] TexasBand Vengvfqiykp3849-23-43 19:12:00 Test Item Value Reference Range Interpretation Comments Band Neutrophils (test code = 11422-1) 16 2-10 H [facility] TexasYssukgsaGrxjzuswbmf7358-57-96 19:12:00 Test Item Value Reference Range Interpretation Comments Lymphocytes (test code = 96214-7) 30 20-51 [facility] TexasMonocytes2019-09-03 19:12:00 Test Item Value Reference Range Interpretation Comments Monocytes (test code = 59802-1) 10 2-9 H [facility] TexasUrvebtieCtkswuraipb0840-17-29 19:12:00 Test Item Value Reference Range Interpretation Comments Eosinophils (test code = 16306-7) 2 1-4 [facility] TexasPlatelet Xugpenkg1464-69-88 19:12:00 Test Item Value Reference Range Interpretation Comments Platelet Estimate (test code = DECREASED ADEQUATE A 75329-6) [facility] TexasPlatelet Jyjkaemcyr4436-46-09 19:12:00 Test Item Value Reference Range Interpretation Comments Platelet Morphology (test code = NORMAL NORMAL 42017-8) [facility] TexasNormal RBC Wfabcwhnos6022-87-83 19:12:00 Test Item Value Reference Range Interpretation Comments Normal RBC Morphology (test code = NORMAL NORMAL 63735-0) [facility]Band Zllmxoygutr7218-74-97 19:12:00 Test Item Value Reference Range Interpretation Comments Band Neutrophils (test code = 65920-4) 16 2-10 H [facility]OLIC [id number] 05:46:00 Test Item Value Reference Range Interpretation [...] PATIEN TS. CBC W/PLT COUNT & AUTO [id number] 05:30:00 Test Item Value Reference Range Interpretation [...] (BEAKER) (test code = 2801) BASIC METABOLIC [id number] 07:48:00 Test Item Value Reference Range Interpretation [...] PATIEN TS. CBC W/PLT COUNT & AUTO [id number] 07:40:00 Test Item Value Reference Range Interpretation [...] PERCENT (BEAKER) (test code = 2801) U/S, [id number] 17:49:00TherapeuticReason for exam:- >AscitesShould this be performed at the bedside?->NoFINAL REPORT Paracentesis dated 12/06/2018 Procedure: Ultrasound-guided paracentes is. Preprocedure diagnosis: Ascites Postprocedure diagnosis: Ascites Conscious sedation: None. Radiologist: Laure Jules M.D. Railroad Purchasing Agent: None Anesthesia: 1% Xylocaine mixed with sodium bicarbonate localanesthesia. Technique: After obtaining informed consent, ultrasound-guided paracentesis was performed under usual sterile technique. Using a 5 hebrew drainage catheter, puncture was made in the right lower quadrant abdomen. Approximately 11,500 cc of serous fluid was removed. Patient tolerated the procedure well without complication. Complication: None Graft/Implant: None Estimated Blood Loss: None Impression: Ultrasound-guided paracentesis. Signed: Laure Jules Verified Date/Time: 12/06/2018 17:49:10 Reading Location: [address] Reading [facility] 2018-[facility] 15:10:00 Test Item Value Reference Range Interpretation Comments PARTIAL THROMBOPLASTIN TIME 35.9 seconds 22.5-36.0 (BEAKER) (test code = 760) PROTHROMBIN TIME/[id number] 15:09:00 Test Item Value Reference Range Interpretation [...] 0-100 (test code = 700) COMPREHENSIVE METABOLIC [id number] 13:12:00 Test Item Value Reference Range Interpretation [...] PATIEN TS. CBC W/PLT COUNT & AUTO [id number] 13:05:00 Test Item Value Reference Range Interpretation [...] 0-1 PERCENT (BEAKER) (test code = 2801) [id number] 13:02:00 Test Item Value Reference Range Interpretation Comments AMMONIA (BEAKER) (test code = 348) 62 mol/L 18-72 U/S, [id number] 08:43:00Reason for exam:->ascitesReason for exam:->possible sbpShould this be performed at the bedside?->YesFINAL REPORT Ultrasound guided paracentesis, 05/23/2018. Clinical History: Ascites. Sedation: None. Wholesale Buyer: Mckenzie. Railroad Purchasing Agent: None. Estimated Blood Loss: < 1 cc. [...] was achieved with 1% lidocaine, a 5 Citizen Of [place] one-step catheter was advanced into the peritoneal cavity under ultrasound guidance. After completion of drainage, the catheter was removed. There was no evidence of complication. Patient Disposition: The patient was discharged from the ultrasound department after the paracentesis, in good condition. Impression:Successful ultrasound guided paracentesis. Signed: Pino Chin Verified Date/Time: 06/02/2018 08:43:07 Reading Location: [place] [id number] Angio Body Reading Room BODY FLUID CULTURE + GRAM [id number] 08:26:00 Test Item Value Reference Range Interpretation Comments CULTURE (BEAKER) (test code No growth = 1095) GRAM STAIN RESULT (BEAKER) 2+ WBCs (test code = 1123) GRAM STAIN RESULT (BEAKER) No organisms seen (test code = 23853) BLOOD [id number] 19:00:00 Test Item Value Reference Range Interpretation Comments CULTURE (BEAKER) (test No growth in 5 days code = 1095) BLOOD [id number] 19:00:00 Test Item Value Reference Range Interpretation Comments CULTURE (BEAKER) (test No growth in 5 days code = 1095) BODY FLUID CELL COUNT WITH [id number] 15:04:00 Test Item Value Reference Range Interpretation [...] (BEAKER) (test code = malignant cells. 2619) [id number] Stanislav Sofia M.D. (BEAKER) (test code = (electronic 2580) signature) CONTAINER BODY FLUID Sterile Cup (BEAKER) (test code = 2873) BASIC METABOLIC [id number] 03:33:00 Test Item Value Reference Range Interpretation [...] FOR DIALYSIS PATIEN TS. Specimen slightly ictericU/S, [id number] 16:05:00Reason for exam:- >ascites, please only remove about 3L, pt with ZUNILDA too, dont want to shift fluidbalanceFINAL REPORT Ultrasound guided paracentesis, 05/26/2018. Clinical History: Ascites. Sedation: None. Wholesale Buyer: Vishnu Perez MD Railroad Purchasing Agent: None. Estimated Blood Loss: <1 cc. Specimen: [...] Perezeport Verified Date/Time: 05/26/2018 16:05:11 Reading Location: [facility] Radiology Reading Room COMPREHENSIVE METABOLIC [id number] 05:55:00 Test Item Value Reference Range Interpretation [...] S NOT APPLICABLE FOR DIALYSIS PATIEN TS. [id number] 05:51:00 Test Item Value Reference Range Interpretation Comments POTASSIUM (BEAKER) (test code = 3.7 meq/L 3.5-5.5 379) [id number] 05:51:00 Test Item Value Reference Range Interpretation Comments MAGNESIUM (BEAKER) (test code = 2.1 mg/dL 1.5-3.0 627) [id number] 05:31:00 Test Item Value Reference Range Interpretation Comments AMMONIA (BEAKER) (test code = 348) 134 mol/L 12-72 H URINE [id number] 12:48:00 Test Item Value Reference Range Interpretation Comments CULTURE (BEAKER) (test code = 1095) No growth BASIC METABOLIC [id number] 04:24:00 Test Item Value Reference Range Interpretation [...] PATIEN TS. CBC W/PLT COUNT & AUTO [id number] 03:55:00 Test Item Value Reference Range Interpretation [...] (BEAKER) (test code = 2801) HEPATITIS PANEL, [id number] 20:47:00 Test Item Value Reference Range Interpretation Comments HEPATITIS A IGM ANTIBODY (BEAKER) Nonreactive Nonreactive (test code = 498) HEPATITIS B CORE IGM ANTIBODY Nonreactive Nonreactive (BEAKER) (test code = 645) HEPATITIS C ANTIBODY (BEAKER) Nonreactive Nonreactive (test code = 367) HEPATITIS B SURFACE ANTIGEN (2) Nonreactive Nonreactive (BEAKER) (test code = 2585) ALPHA FETOPROTEIN (AFP), TUMOR [id number] 19:52:00 Test Item Value Reference Range Interpretation Comments ALPHA-FETOPROTEIN (BEAKER) (test 5.5 ng/mL <10.0 code = 1094) CREATININE, RANDOM [id number] 14:08:00 Test Item Value Reference Range Interpretation Comments CREATININE URINE (BEAKER) (test 42.7 mg/dL code = 375) Reference Range: No NormalsSODIUM, RANDOM [id number] 14:08:00 Test Item Value Reference Range Interpretation Comments SODIUM URINE (BEAKER) (test code = 28 meq/L 243) Reference Range: No NormalsOCCULT BLOOD, [id number] 13:56:00 Test Item Value Reference Range Interpretation Comments FECAL OCCULT BLOOD (BEAKER) (test Positive Negative A code = 618) U/S, RENAL, [id number] 11:53:00Reason for exam:->akiFINAL REPORT RENAL ULTRASOUND HISTORY: [...] MDReport Verified Date/Time: 05/24/2018 11:53:08 Reading Location: [address] Reading Room BASIC METABOLIC [id number] 05:13:00 Test Item Value Reference Range Interpretation [...] PATIEN TS. CBC W/PLT COUNT & AUTO [id number] 04:39:00 Test Item Value Reference Range Interpretation [...] (BEAKER) (test code = 2801) BASIC METABOLIC [id number] 19:11:00 Test Item Value Reference Range Interpretation [...] FOR DIALYSIS PATIEN TS. CT, BRAIN, WITHOUT [id number] 17:56:00Reason for exam:->ALTERED MENTAL STATUSReason for exam:->BLOATEDReason [...] Silver Verified Date/Time: 05/23/2018 17:56:33 Reading Location: [facility] Radiology Reading Room COMPREHENSIVE METABOLIC [id number] 16:54:00 Test Item Value Reference Range Interpretation [...] S NOT APPLICABLE FOR DIALYSIS PATIEN TS. [id number] 16:38:00 Test Item Value Reference Range Interpretation Comments LIPASE (BEAKER) (test code = 749) 82 U/L 8-78 H PROTHROMBIN TIME/[id number] 16:28:00 Test Item Value Reference Range Interpretation [...] mechanical heart valves.CBC W/PLT COUNT & AUTO [id number] 16:26:00 Test Item Value Reference Range Interpretation [...] = 2801) RAD, CHEST, 1 VIEW, NON [id number] 16:22:00Reason for exam:->altered mental statusShould this be performed at the bedside?->YesIs the patient ?->NoFINAL REPORT CHEST AP PORTABLE History provided: Altered mental status Heart size normal. Lungs clear and vascularity normal. IMPRESSION: Clear chest. Signed: Bruno Serrano MDReportVerified Date/Time: 05/23/2018 16:22:47 Reading Location: [facility] Radiology Reading Room URINALYSIS W/ [id number] 16:19:00 Test Item Value Reference Range Interpretation [...] code = 2795) LACTIC ACID, VENOUS, WHOLE [id number] 16:12:00 Test Item Value Reference Range Interpretation Comments LACTATE BLOOD VENOUS 2.0 mmol/L 0.5-2.2 Specime n moderately (2) (BEAKER) (test hemolyzed code = 2872) Effective 12/07/2015: Units/Reference Range ChangeNew: 0.5-2.2 mmol/L Previous: 5- 20 mg/[id number] 16:07:00 Test Item Value Reference Range Interpretation Comments AMMONIA (BEAKER) 90 mol/L 12-72 H Specimen mo derately (test code = 348) hemolyzed AFB CULTURE + [id number] 00:02:00 Test Item Value Reference Range Interpretation Comments CULTURE (BEAKER) (test No acid-fast bacilli code = 1095) isolated in 42 days AFB SMEAR (BEAKER) No acid fast bacilli (test code = 994) seen FUNGUS CULTURE + [id number] 12:57:00 Test Item Value Reference Range Interpretation Comments CULTURE (BEAKER) (test No fungus isolated in code = 1095) 28 days FUNGUS SMEAR (BEAKER) No fungi seen (test code = 1406) BODY FLUID CULTURE + GRAM [id number] 05:31:00 Test Item Value Reference Range Interpretation Comments CULTURE (BEAKER) (test code No growth = 1095) GRAM STAIN RESULT (BEAKER) <1+ WBCs (test code = 1123) GRAM STAIN RESULT (BEAKER) No organisms seen (test code = 86144) ANAEROBIC [id number] 02:42:00 Test Item Value Reference Range Interpretation Comments CULTURE (BEAKER) (test No anaerobes isolated code = 1095) POCT-GLUCOSE [id number] 13:58:00 Test Item Value Reference Range Interpretation Comments POC-GLUCOSE METER 119 mg/dL 70-110 H TESTED AT [facility] 6720 (BEAKER) (test code = [place] 1538) [address] CBC W/PLT COUNT & AUTO [id number] 09:22:00 Test Item Value Reference Range Interpretation [...] WBC 0-0 (test code = 413) POCT-GLUCOSE [id number] 08:54:00 Test Item Value Reference Range Interpretation Comments POC-GLUCOSE METER 135 mg/dL 70-110 H TESTED AT [facility] 6720 (BEAKER) (test code = MAGGY [place] 1538) [address] [id number] 06:41:00 Test Item Value Reference Range Interpretation Comments PHOSPHORUS (BEAKER) (test code = 3.5 mg/dL 2.3-4.7 604) [id number] 06:41:00 Test Item Value Reference Range Interpretation Comments MAGNESIUM (BEAKER) (test code = 1.7 mg/dL 1.6-2.6 627) BASIC METABOLIC [id number] 06:41:00 Test Item Value Reference Range Interpretation [...] APPLICABLE FOR DIALYSIS PATIEN TS. HEPATIC FUNCTION [id number] 06:41:00 Test Item Value Reference Range Interpretation [...] = 56 U/L 6-55 H 347) BLOOD [id number] 06:00:00 Test Item Value Reference Range Interpretation Comments CULTURE (BEAKER) (test No growth in 5 days code = 1095) BLOOD [id number] 06:00:00 Test Item Value Reference Range Interpretation Comments CULTURE (BEAKER) (test No growth in 5 days code = 1095) POCT-GLUCOSE [id number] 21:33:00 Test Item Value Reference Range Interpretation Comments POC-GLUCOSE METER 126 mg/dL 70-110 H TESTED AT [facility] 6720 (BEAKER) (test code = MAGGY [facility] 1535) [address] BODY FLUID CELL COUNT WITH [id number] 20:39:00 Test Item Value Reference Range Interpretation Comments APPEARANCE FLUID (BEAKER) (test Bloody Clear A code = 510) COLOR FLUID (BEAKER) (test code Red Colorless, Straw A = 511) RBC FLUID (BEAKER) (test code = 12725 /cu mm <=1 H 513) ADJUSTED WBC [...] EDTA Tube (test code = 2873) TISSUE [id number] 18:33:00Surgical Pathology Report Case: [id number] Authorizing Provider: Tamera Mayorga MD Collected: 02/11/2018 1338 Ordering Location: [place] [address] ICU Received: 02/11/2018 1613 Pathologist: Herminia Hope MD Specimen: Hernia Sac, Umbilical SKIN AND HERNIA SAC, EXCISION:- SKIN WITH ULCER, NECROSIS, HERNIAWITH FIBROSIS, ADHESION AND CHRONIC INFLAMMATION Signing Pathologist Direct Phone Line: [phone] signed by Herminia Hope MD on 02/14/2018 at 6:33 [id number] umbilical hernia Hernia sac umbilical The specimen is received in a formalin-filled container labeled with the patient's information and labeled "umbilical hernial sac" and consists of hemorrhagic membranous tissue measuring 6 x 3 x 0.2 cm with overlying brown skin measuring 5.5 x 3 x 0.3 cm, submitted in A1 and A2. Thereare no areas of suspicion. CG/ew PerformedPOCT-GLUCOSE [id number] 18:27:00 Test Item Value Reference Range Interpretation Comments POC-GLUCOSE METER 152 mg/dL 70-110 H TESTED AT [facility] 6720 ([facility]) (test code = MAGGY Mac [place] 1538) [address] U/S, [id number] 17:34:00Send fluid for cell ct \\T\\ diff, [...] Rios MDReport Verified Date/Time:02/14/2018 17:34:56 Reading Location: [address] Ultrasound Reading Room [id number] 15:56:00 Test Item Value Reference Range Interpretation Comments PARTIAL THROMBOPLASTIN TIME 28.9 seconds 22.5-36.0 (BEAKER) (test code = 760) PROTHROMBIN TIME/[id number] 15:55:00 Test Item Value Reference Range Interpretation [...] mechanical heart valves.CBC W/PLT COUNT & AUTO [id number] 15:49:00 Test Item Value Reference Range Interpretation [...] PERCENT (BEAKER) (test code = 2801) POCT-GLUCOSE [id number] 13:10:00 Test Item Value Reference Range Interpretation Comments POC-GLUCOSE METER 138 mg/dL 70-110 H TESTED AT [facility] 6720 (BEAKER) (test code = MAGGY Mac [facility] 1538) [address] SURGICALLY OBTAINED CULTURE + GRAM [id number] 11:29:00 Test Item Value Reference Range Interpretation Comments CULTURE (BEAKER) (test code No growth = 1095) GRAM STAIN RESULT (BEAKER) <1+ WBCs (test code = 1123) GRAM STAIN RESULT (BEAKER) No organisms seen (test code = 93701) CBC W/PLT COUNT & AUTO [id number] 09:31:00 Test Item Value Reference Range Interpretation [...] PERCENT (BEAKER) (test code = 2801) POCT-GLUCOSE [id number] 08:00:00 Test Item Value Reference Range Interpretation Comments POC-GLUCOSE METER 100 mg/dL 70-110 TESTED AT [facility] 6720 (BEAKER) (test code = MAGGY Mac [facility] 1538) [address] [id number] 07:25:00 Test Item Value Reference Range Interpretation Comments PHOSPHORUS (BEAKER) (test code = 3.0 mg/dL 2.3-4.7 604) [id number] 07:25:00 Test Item Value Reference Range Interpretation Comments MAGNESIUM (BEAKER) (test code = 2.0 mg/dL 1.6-2.6 627) HEPATIC FUNCTION [id number] 07:25:00 Test Item Value Reference Range Interpretation [...] = 58 U/L 6-55 H 347) POCT-GLUCOSE [id number] 23:06:00 Test Item Value Reference Range Interpretation Comments POC-GLUCOSE METER 106 mg/dL 70-110 TESTED AT [place] [address] (BEAKER) (test code = MAGGY [place] 1538) [address] POCT-GLUCOSE [id number] 17:34:00 Test Item Value Reference Range Interpretation Comments POC-GLUCOSE METER 149 mg/dL 70-110 H TESTED AT [place] [address] (BEAKER) (test code = MAGGY Mac [place] 1538) [address] POCT-GLUCOSE [id number] 11:39:00 Test Item Value Reference Range Interpretation Comments POC-GLUCOSE METER 117 mg/dL 70-110 H TESTED AT [place] [address] (BEAKER) (test code = MAGGY Mac [place] 1538) [address] POCT-GLUCOSE [id number] 08:13:00 Test Item Value Reference Range Interpretation Comments POC-GLUCOSE METER 126 mg/dL 70-110 H TESTED AT [place] [address] (BEAKER) (test code = MAGGY Mac [place] 1538) [address] [id number] 06:41:00 Test Item Value Reference Range Interpretation Comments PHOSPHORUS (BEAKER) (test code = 2.1 mg/dL 2.3-4.7 L 604) [id number] 06:41:00 Test Item Value Reference Range Interpretation Comments MAGNESIUM (BEAKER) (test code = 2.1 mg/dL 1.6-2.6 627) HEPATIC FUNCTION [id number] 06:41:00 Test Item Value Reference Range Interpretation [...] = 17 U/L 6-55 347) COMPREHENSIVE METABOLIC [id number] 06:41:00 Test Item Value Reference Range Interpretation [...] PATIEN TS. CBC W/PLT COUNT & AUTO [id number] 06:25:00 Test Item Value Reference Range Interpretation [...] % 0-1 PERCENT (BEAKER) (test code = 2803) SPIN/CONCENTRATION [id number] 15:23:00 Test Item Value Reference Range Interpretation Comments CONCENTRATION CHARGED (BEAKER) (test Done code = 0637) POCT-GLUCOSE [id number] 08:15:00 Test Item Value Reference Range Interpretation Comments POC-GLUCOSE METER 147 mg/dL 70-110 H TESTED AT [facility] 6720 (BEAKER) (test code = MAGGY [place] 4266) [address] HIV-1 ANTIGEN WITH HIV-1/2 [id number] 06:57:00 Test Item Value Reference Range Interpretation Comments HIV-1 ANTIGEN WITH HIV 1\\T\\2 Nonreactive Nonreactive ANTIBODY (2) (BEAKER) (test code = 2586) [id number] 06:35:00 Test Item Value Reference Range Interpretation Comments PHOSPHORUS (BEAKER) (test code = 2.8 mg/dL 2.3-4.7 604) [id number] 06:35:00 Test Item Value Reference Range Interpretation Comments MAGNESIUM (BEAKER) (test code = 1.9 mg/dL 1.6-2.6 627) BASIC METABOLIC [id number] 06:35:00 Test Item Value Reference Range Interpretation [...] APPLICABLE FOR DIALYSIS PATIEN TS. HEPATIC FUNCTION [id number] 06:35:00 Test Item Value Reference Range Interpretation [...] 6-55 347) CBC W/PLT COUNT & AUTO [id number] 06:26:00 Test Item Value Reference Range Interpretation [...] PERCENT (BEAKER) (test code = 2801) POCT-GLUCOSE [id number] 00:47:00 Test Item Value Reference Range Interpretation Comments POC-GLUCOSE METER 220 mg/dL 70-110 H TESTED AT [facility] 6720 (BEAKER) (test code = MAGGY [place] 1538) [address] [id number] 19:57:00 Test Item Value Reference Range Interpretation Comments PHOSPHORUS (BEAKER) (test code = 2.9 mg/dL 2.3-4.7 604) [id number] 19:57:00 Test Item Value Reference Range Interpretation Comments MAGNESIUM (BEAKER) (test code = 1.7 mg/dL 1.6-2.6 627) PT/[id number] 16:27:00 Test Item Value Reference Range Interpretation [...] for patients with mechanical heart valves.BASIC METABOLIC [id number] 16:24:00 Test Item Value Reference Range Interpretation [...] PATIEN TS. CBC W/PLT COUNT & AUTO [id number] 16:00:00 Test Item Value Reference Range Interpretation [...] code = 2801) HGB/HCT (H&H) - STAT [id number] 13:33:00 Test Item Value Reference Range Interpretation Comments HEMOGLOBIN (BEAKER) (test code = 8.7 g/dL 12.0-15.0 L 410) HEMATOCRIT (BEAKER) (test code = 26.0 % 36.0-45.0 L 411) THIS IS A VENOUS SAMPLECALCIUM, [id number] 13:33:00 Test Item Value Reference Range Interpretation Comments CALCIUM IONIZED (BEAKER) (test 1.07 mmol/L 1.12-1.27 L code = 698) PH, BLOOD (BEAKER) (test code = 7.28 1810) GLUCOSE-STAT [id number] 13:33:00 Test Item Value Reference Range Interpretation Comments GLUCOSE RANDOM (BEAKER) (test code 122 mg/dL 70-110 H = 652) THIS IS A VENOUS SAMPLETHIS IS A VENOUS SAMPLETHIS IS A VENOUS SAMPLESODIUM NA- STAT [id number] 13:32:00 Test Item Value Reference Range Interpretation Comments SODIUM (BEAKER) (test code = 381) 135 meq/L 135-148 THIS IS A VENOUS SAMPLETHIS IS A VENOUS SAMPLETHIS IS A VENOUS SAMPLEPOTASSIUM- STAT [id number] 13:32:00 Test Item Value Reference Range Interpretation Comments POTASSIUM (MEREDITH) (test code = 3.9 meq/L 3.6-5.5 379) THIS IS A VENOUS SAMPLETHIS IS A VENOUS SAMPLETHIS IS A VENOUS SAMPLEU/S, ABDOMINAL, [id number] 09:32:00Reason for exam:->ascites, acute renal failure, hydronephrosisShould [...] Riosort Verified Date/Time: 02/11/2018 09:32:36 Reading Location: [facility] P006J Ultrasound Reading Room POCT-GLUCOSE [id number] 08:05:00 Test Item Value Reference Range Interpretation Comments POC-GLUCOSE METER 117 mg/dL 70-110 H TESTED AT [facility] 6720 (BEAKER) (test code = MAGGY Mac [facility] 1538) [address] COMPREHENSIVE METABOLIC [id number] 07:53:00 Test Item Value Reference Range Interpretation [...] NOT APPLICABLE FOR DIALYSIS PATIEN TS. CT, [id number] 07:50:00FINAL REPORT HISTORY : Hernia, complicated Technique: [...] or underdistention. 5. Cholelithiasis. Signed: Tyrell Mercer MDReport Verified Date/Time: 02/11/2018 07:50:19 Reading Location: [facility] [place] Diagnostic Imaging Reading Room - [place] [address] PT/[id number] 07:06:00 Test Item Value Reference Range Interpretation [...] mechanical heart valves.CBC W/PLT COUNT & AUTO [id number] 06:22:00 Test Item Value Reference Range Interpretation [...] PERCENT (BEAKER) (test code = 2801) POCT-GLUCOSE [id number] 00:49:00 Test Item Value Reference Range Interpretation Comments POC-GLUCOSE METER 95 mg/dL 70-110 TESTED AT [place] [address] (BEAKER) ([facility] = [facility] [address] 1538) [id number] 21:49:00 Test Item Value Reference Range Interpretation Comments POTASSIUM (BEAKER) 3.9 meq/L 3.5-5.1 Specimen moderately (test code = 379) hemolyzed SODIUM, RANDOM [id number] 19:06:00 Test Item Value Reference Range Interpretation Comments SODIUM URINE (BEAKER) (test code = < meq/L 243) Reference Range: No NormalsCREATININE, RANDOM [id number] 19:02:00 Test Item Value Reference Range Interpretation Comments CREATININE URINE (BEAKER) (test 160.3 mg/dL code = 375) Reference Range: No NormalsPROTEIN, RANDOM [id number] 19:02:00 Test Item Value Reference Range Interpretation Comments PROTEIN, URINE (BEAKER) (test code = 19 mg/dL 0-14 H 1569) SCREEN, [id number] 18:47:00 Test Item Value Reference Range Interpretation Comments TEST URINE (BEAKER) (test Negative code = 583) POCT-GLUCOSE [id number] 18:08:00 Test Item Value Reference Range Interpretation Comments POC-GLUCOSE METER 183 mg/dL 70-110 H TESTED AT [facility] 67 (BEAKER) (test code = [facility] 1538) [address] [id number] 13:33:00 Test Item Value Reference Range Interpretation [...] CELLS (BEAKER) (test code = 413) POCT-GLUCOSE [id number] 11:51:00 Test Item Value Reference Range Interpretation Comments POC-GLUCOSE METER 123 mg/dL 70-110 H [facility] [place] [address] [facility] (test code = MAGGY [place] 1538) [address] POCT-GLUCOSE [id number] 06:46:00 Test Item Value Reference Range Interpretation Comments POC-GLUCOSE METER 237 mg/dL 70-110 H TESTED AT [place] [id number] ([facility] (test code = MAGGY [place] 1538) [address] CBC (HEMOGRAM ONLY)2018-02-10 06:44:00 Test Item Value [...] (test code = 413) RAPID DRUG SCREEN, [id number] 06:12:00 Test Item Value Reference Range Interpretation [...] situations. Chain of custody not maintained. Some pbtv-jks-cytbpce medications, as well as adulterants, may cause inaccurate results. Clinical correlation should be applied. Saira comprehensive drug screen or confirmation of a detected drug may be performed upon request.URINALYSIS W/ REFLEX URINE [id number] 04:33:00 Test Item Value Reference Range Interpretation [...] SOURCE(BEAKER) (test code = 2795) BASIC METABOLIC [id number] 02:35:00 Test Item Value Reference Range Interpretation [...] S NOT APPLICABLE FOR DIALYSIS PATIEN TS. [id number] 02:35:00 Test Item Value Reference Range Interpretation Comments MAGNESIUM (BEAKER) (test code = 2.0 mg/dL 1.6-2.6 627) HEPATIC FUNCTION [id number] 02:35:00 Test Item Value Reference Range Interpretation [...] = 14 U/L 6-55 347) BLOOD GAS, [id number] 02:34:00 Test Item Value Reference Range Interpretation [...] (BEAKER) 37.0 C (test code = 1818) [id number] 02:33:00 Test Item Value Reference Range Interpretation Comments PHOSPHORUS (BEAKER) (test code = 3.7 mg/dL 2.3-4.7 604) [id number] 02:33:00 Test Item Value Reference Range Interpretation Comments LIPASE (BEAKER) (test code = 749) 40 U/L 8-78 CREATINE KINASE (CK), TOTAL AND [id number] 02:30:00 Test Item Value Reference Range Interpretation Comments CREATINE KINASE TOTAL (BEAKER) 30 U/L 29-200 (test code = 380) CREATINE KINASE-MB (BEAKER) (test 0.4 ng/mL 0.0-6.6 code = 750) CREATINE KINASE-MB INDEX (BEAKER) 1.3 % (test code = 395) CK-MB Reference Range:<6.7 Normal6.7-10.0 Borderline>10.0 AbnormalTROPONIN [id number] 02:30:00 Test Item Value Reference Range Interpretation [...] failure, acidosis, acute neurological disease, and persistent tachyarrhythmia.[id number] 02:19:00 Test Item Value Reference Range Interpretation Comments ETHANOL (BEAKER) (test code = 400) < mg/dL <=10 [id number] 02:17:00 Test Item Value Reference Range Interpretation Comments PARTIAL THROMBOPLASTIN TIME 32.8 seconds 22.5-36.0 (BEAKER) (test code = 760) LACTIC ACID, VENOUS, WHOLE [id number] 02:17:00 Test Item Value Reference Range Interpretation Comments LACTATE BLOOD VENOUS (2) (BEAKER) 1.2 mmol/L 0.5-2.2 (test code = 2872) Effective 12/07/2015: Units/Reference Range ChangeNew: 0.5-2.2 mmol/L Previous: 5- 20 mg/dLPROTHROMBIN TIME/[id number] 02:16:00 Test Item Value Reference Range Interpretation Comments PROTIME (BEAKER) (test code = 17.0 seconds 11.7-14.7 H 759) INR (BEAKER) (test code = 370) 1.4 <=5.9 RECOMMENDED COUMADIN/WARFARIN INR THERAPY RANGESSTANDARD DOSE: 2.0 - 3.0 Includes: PROPHYLAXIS for venous thrombosis, systemic embolization; TREATMENT for venous thrombosis and/or pulmonary embolus.HIGH RISK: Target INR is 2.5-3.5 for patients with mechanical heart valves.[id number] 02:16:00 Test Item Value Reference Range Interpretation Comments AMMONIA (BEAKER) (test code = 348) 75 mol/L 18-72 H [id number] 02:16:00 Test Item Value Reference Range Interpretation Comments FIBRINOGEN LEVEL (BEAKER) (test 372 mg/dl 225-434 code = 658) CBC W/PLT COUNT & AUTO [id number] 02:10:00 Test Item Value Reference Range Interpretation [...] (test code = 418) LÓPEZ TITER AND [id number] 09:50:00 Test Item Value Reference Range Interpretation Comments LÓPEZ TITER (BEAKER) (test code = :40 1541) LÓPEZ PATTERN (BEAKER) (test code = Speckled 1781) [id number] 15:34:00 Test Item Value Reference Range Interpretation Comments FERRITIN (BEAKER) (test code = 361) 237 ng/mL 5-275 HEPATITIS B SURFACE [id number] 14:54:00 Test Item Value Reference Range Interpretation Comments HEPATITIS B SURFACE ANTIBODY < mIU/mL <8.0 (BEAKER) (test code = 647) HEPATITIS B SURFACE [id number] 14:49:00 Test Item Value Reference Range Interpretation Comments HEPATITIS B SURFACE ANTIGEN (2) Nonreactive Nonreactive (BEAKER) (test code = 2585) HEPATITIS C [id number] 14:49:00 Test Item Value Reference Range Interpretation Comments HEPATITIS C ANTIBODY (BEAKER) Nonreactive Nonreactive (test code = 367) ALPHA FETOPROTEIN (AFP), TUMOR [id number] 14:48:00 Test Item Value Reference Range Interpretation Comments ALPHA-FETOPROTEIN (BEAKER) (test 4.9 ng/mL <10.0 code = 1094) HEPATITIS B CORE ANTIBODY, [id number] 14:48:00 Test Item Value Reference Range Interpretation Comments HEPATITIS B CORE TOTAL ANTIBODY Nonreactive Nonreactive (BEAKER) (test code = 497) HEPATITIS A ANTIBODY, [id number] 14:48:00 Test Item Value Reference Range Interpretation Comments HEPATITIS A IGG ANTIBODY (BEAKER) Nonreactive Nonreactive (test code = 2797) CBC W/PLT COUNT & AUTO [id number] 14:30:00 Test Item Value Reference Range Interpretation [...] (BEAKER) (test code = 2801) COMPREHENSIVE METABOLIC [id number] 14:28:00 Test Item Value Reference Range Interpretation [...] NOT APPLICABLE FOR DIALYSIS PATIEN TS. BILIRUBIN, [id number] 14:28:00 Test Item Value Reference Range Interpretation [...] % 20-55 L (test code = 2590) NKMKB-5-[id number] 14:25:00 Test Item Value Reference Range Interpretation Comments ALPHA-1 ANTITRYPSIN (BEAKER) 151.80 mg/dL 90.00-200.00 (test code = 502) PROTHROMBIN TIME/[id number] 14:03:00 Test Item Value Reference Range Interpretation [...] Consult Notes Date/Time Note Provider Source 2023-03-21 6104-62-38W17:00:00[facility] 16:00:00 Order(s): CONSULT VASCULAR ACCESS Vascular Access ServicesVAS was consulted for midline insertion. Consult has been acknowledged, and the patient's medical chart has been reviewed. Please see procedural note. 49437-3Rdmgniu vurfGO1140-57-57K29:35:25Consul t noteTXT1.2.840.521822.1.13.104. 2.7.2.314527|[id number] ble for patient heil29889-9Aprzxwf [address] BfjnDcnvxcekqVsevczpdtJNJW75869 28860QKXPPIFXCUBGFYDEUVZNKN3324 -08-17T17:35:251.2.840.698481.1 .72.3.15|1.2.840.520909.1.13.10 4.2.7.2.727879_[id number] 2023-03-20 2139-02-36W49:52:49[facility] 15:52:49 Order(s): CONSULT WOUND, OSTOMY, OR CONTINENCE CARE TEAM [facility] Nurse NoteConsult for abdominal wound. Pt has history of ventral hernia repair x 5 yrs ago with exposed mesh. Pt reports wound never closed. ASSESSMENT: Midline abdominal wound with small opening and scar tissue surrounding. Clear drainage. Exposed mesh. RECOMMENDATIONS: Cleanse skin with saline to remove dried crusts and drainage. Apply skin barrier film [id number] to intact skin to protect from drainage. Apply dry absorbent gauze dressing daily. Surgery on consult for further interventions. Bela CERON RN [id number] signed by Bela William RN at 03/20/2023 3:57 PM ICP26003-5Rhzdofr wvreLO6819-78-81S38:57:48Consul t noteTXT1.2.840.123348.1.13.104. 2.7.2.413364|[id number] ble for patient rbuz14309-0Jwaelqe vqzvTXBUS-GHZWZNABWQ-TVKCGTNWAT [address] RvzuZcdwcevuxNbkjthugrLKLO97134 67757DACYYUGDGAVTKBUPHDRQZO4601 -08-16T15:57:481.2.840.356677.1 .72.3.15|1.2.840.447577.1.13.10 4.2.7.2.727879_[id number] 2023-03-20 4946-59-25N30:36:46[facility]ated [facility] 12:36:46 Order(s): CONSULT GENERAL RECONSTRUCTIVE SURGERY SURGERY [...] medical decision making. Hernan William M.D.Plastic Surgery PGY-108/ 5:49 PM ssociated attestation - John Lindsey [...] -Abdominal pain likely related to SBP John PerazaonTrauma/Acute Care Surgery Faculty03/20/2023 8:11 PM 71847-8Ymvyogq psmfGQ5532815Ffqyugcx, Michael1.2.840.836488.1.13.104. 2.7.2.451749NlfqlwqdZvtypko9389 -08-16T20:14:34Consult noteTXT1.2.840.388280.1.13.104. 2.7.2.871837|[id number] ble for patient keci03413-4Dgtgwbs noteLNSUR-PLASTIC AND RECONSTRUCTIVE SURGERYSUR-PLASTIC AND RECONSTRUCTIVE SURGERY[address] EweuDrbdowyelXhpsljmbiEAYY26744 64776DMATXZBACKWQHSYYTBNKYY6722 -08-16T20:14:341.2.840.075239.1 .72.3.15|1.2.840.167682.1.13.10 4.2.7.2.727879_[id number] 2023-03-20 9089-07-48E95:35:42[facility] 10:35:42 Order(s): CONSULT INFECTIOUS DISEASE INFECTIOUS DISEASES [...] lymphopenia seen on differential. 03/19 blood cultures 2/2 positive for Enterococcus faecalis via DNA probe. [...] Distal;Inferior;Left Wrist (Active) Site assessment Clean;Dry;Intact 03/20/23 0800 Line status Saline Lock;Flushed 03/20/23 0800 Line interventions None required 03/20/23 0800 Dressing status Clean;Dry;Intact 03/20/23 0800 Dressing intervention None required 03/20/23 0800 Number of days: 1 Peripheral IV 03/19/23 0600 Distal;Inferior;Right Arm (Active) Site assessment Clean;Dry;Intact 03/20/23 0800 Line status Infusing 03/20/23 0800 Line interventions None required 03/20/23 0800 Dressing status Clean;Dry;Intact 03/20/23 0800 Dressing intervention None required 03/20/23 0800 Number of days: 1 Pertinent laboratory findings: [...] CFU/mL Escherichia coli 03/19/2023 Radiology/Imaging: Reviewed in [facility]. Pertinent findings:CT THORAX WO CONTRASTResult Date: [...] call or page with questions or concerns Shafaq TariqInfectious Diseases ssociated attestation - Diamond Olivera MD - 03/21/2023 7:46 AM CDT Attending attestationDate of Service: 03/20/23I personally examined the patient on the date of service. I actively participated in the decision-making process. I agree w/ Dr Lao's assessment. Please see the fellow's note for additional details. Diamond Olivera [facility] professor of Infectious Disease SHJH40412-7Dckvkph [id number], Melinda B1.2.840.575035.1.13.104.2.7.2. 446783RmbfpkUooxqdoRHC1318-03-5 7T07:46:00Consult noteTXT1.2.840.591446.1.13.104. 2.7.2.691479|[id number] ble for patient prls72538-4Uwvacdb noteLNUT[address] UnmrHmhwnevnuNihirdciyWGKF15561 95[address]CKYPVRAMMOVYYYVKYDWYCR2635 -08-17T07:46:001.2.840.261057.1 .72.3.15|1.2.840.308770.1.13.10 4.2.7.2.727879_[id number] History and Physical Notes Date/Time Note Provider Source 2023-03-25 10:40:48 1465-90-01K92:40:48Formatting IM-CARDIOVASCU [facility] of this note might be different DISEASE [...] PM CDT Agree with pre procedure assessment. 79149-5Axvkoiu and physical thldNL6288328Inhupjvz, Afaq1.2.840.552537.1.13.104.2.7 .2.630447EuqbggvcTcacZC0366-62- 21T12:23:55History and physical noteTXT1.2.840.543453.1.13.104. 2.7.2.853811|[id number] [facility] eggx10084-8Rubseib and physical noteLNIM-CARDIOVASCULAR DISEASEIM-CARDIOVASCULAR DISEASEUT[address]BQXPUSKDRRIBKYPZSMUYOG3410 -08-21T12:23:551.2.840.825610.1 .72.3.15|1.2.840.097622.1.13.10 4.2.7.2.727879_[id number] 2023-03-19 15:45:06 3127-31-98L95:45:06Formatting [facility] of this note is different from the [...] recently.Patient was [facility] as [facility] from [facility]. Patient is currently placed on [...] is not on file.Allergies: None Lives on "[place]" MEDICATIONS (From previous hospital) - Metoprolol 25 [...] +2AST: 59 ALT: 33TSH: 3.68Lactic Acid: 2.2ASSESSMENT/PLANScharron December is a 52 year old female with [...] ordering referrals and/or communicating with other health adult care provider (not separately reported), documenting clinical information in the electronic or other health record, and care coordination (not separately reported).52 y o F transferred from OSH for CHF.Acute CHFH/o Liver cirrhosis s/p TIPSAlcoholism - activeAmphetamine use - activeSmoking - activeCAD s/p PCI in the pastHernia repair complicated by abdominal wound dehiscenceSwitch to IV Diuril and Bumex dripCT CAPEcho tzuhkos94190-5Eycgcxh and physical mswzVB6652698Tfsz, Fatima1.2.840.011131.1.13.104.2 .7.2.914287WubkYuvcfgMA7571-63- 17T08:17:50History and physical noteTXT1.2.840.848419.1.13.104. 2.7.2.510558|[id number] ble for patient ifwq01186-2Itvvvoa and physical noteLNUT67 [address] StreetTXTX[address] 77855FKEBHMAKKOAFTJCSAMXIYX7534 -08-17T08:17:501.2.840.704703.1 .72.3.15|1.2.840.740399.1.13.10 4.2.7.2.727879_[id number] Procedure Notes Date/Time Note Provider Source 2023-03-25 11:00:08 2623-75-00S08:00:08Formatting -INTERVENTIO [facility] of this note might be CARDIOLOGY STAFF [...] site: R radial, R brachialClosure Method: Mynx engagement quality consultant TR Band Manual CompressionComplications: noneProcedure Details:RHC 7 [...] recovering from sedation. Complications: noneFindings:Right Heart Catheterization:RA //RV 35/7/17PA 36//25PCWP 9//9SVC sat 66%PA sat 67%CO/CI (Lito): 6.36/3.44CO/CI (Thermodilution): [...] procedure. Markus Chavez MD 03/25/2023 11:00 AM 15330-7Yufuxexer fkwkAC1761-82-88Q18:16:47Proce dure noteTXT1.2.840.268856.1.13.104 .2.7.2.083822|[id number] lable for patient qhyo62717-1Zajujwotn noteLNIM-INTERVENTIONAL CARDIOLOGY STAFFIM-INTERVENTIONAL CARDIOLOGY STAFF[address]TXTX[address] 718779VCSNBWMWPBETOCWQYYLLBA74 27-03-212:16:471.2.840.88871 0.1.72.3.15|1.2.840.202810.1.1 3.104.2.7.2.727879_[id number] 2023-03-21 17:00:00 5298-26-12Z53:00:00Formatting Fareed sands RN [facility] of this note might be different from the original.Vascular Access ServicesA bedside timeout was conducted before procedure with Micaela Delaney RN. An ultrasound guided, 4fr 10 cm. MIDLINE was then placed in the left basilic vein, in 1 attempt(s). Local anesthetic was not used. Labs were not obtained.REF#: [id number] #: [id number]: 12/03/2023 21909-7Xnrzwpxrf yhddAW3793-60-63R87:36:23Proce dure noteTXT1.2.840.059018.1.13.104 .2.7.2.710424|[id number] lable for patient owhq32595-9Jxwqbvfag [id number] Holubka RN[address] StreetTXTX[address]4880ORBASASJYYDEFHLAYQJUDX66 27-03-177:36:231.2.840.42467 0.1.72.3.15|1.2.840.113133.1.1 3.104.2.7.2.727879_[id number] Notes Date/Time Note Provider Source 2023-04-19 5415-84-31C18:58:41Formatting of this Nafisa Lopez [facility] 11:58:41 note is different from the LEAD LEVEL DESIGNER original.CHP referral [place]. 10556-2Phgyddnwz encounter TgzmOV7681-41-68Z60:59:31Telephone encounter NoteTXT1.2.840.661155.1.13.104.2.7.2.7 56859|[id number] for patient [id number] John [address] BccgKddeocwjhNujppisgvSCZU9450688786HY MGEVGIGETPSUOCFDSJMJ5812-21-85D01:59:3 11.2.840.736959.1.72.3.15|1.2.840.1143 50.1.13.104.2.7.2.727879_[id number] 2023-03-29 0184-42-21B32:53:49Formatting of this Milagros Angelo Desmond victor RN [facility] 09:53:49 note might be different from the original.Images from the original note were not included.TRANSITIONAL CARE MANAGEMENT ASSESSMENT03/29/2023 Amauri HensonUzf010479KBfunalwr May is a 52 year old /White female was admitted on 03/19/[address] She was discharged on 03/28/23 with discharge disposition of HR- Routine Discharge.Admitting Physician: Kapil Hernandez Diagnosis:Acute on Chronic Exacerbation of systolic HF (EF 20-25%, class IV/stage C) SECONDARY DIAGNOSESAlcoholic Cirrhosis of the liver (s/p TIPS)Enterococcal faecalis bacteremia 2/2 infected hernia meshNSTEMI type 1CAD (s/p PCI)Lactic Acidosis likely 2/2 bacteremiaNo linked episodesTCM Gsn-zmyi-vd-face outreach documentation:Discharge AssessmentChart Assessed: 03/29/23TC Outreach Completed: 03/29/23Do you have a few minutes to speak with me about how you are doing at home?: Yes (Patient stated she is doing ok)Discharge InstructionsDo you understand your at-home instructions?: YesMedicationsHave you filled your prescriptions and do you have them in your home? : YesDo you know how to take your medications?: YesSuppliesDid you receive applicable home medical supplies/equipment?: N/AFollow Up AppointmentHas a follow up appointment been scheduled?: NoMay I assist with scheduling this appointment?: Patient will schedule (CM send appt request to Heart Failure team.Patient stated she has number to call to make f/u appt General Surgery, GI, ID and secure a PCP)Do you have any questions about your follow up appointments?: NoAre you able to get to your appointment? Who will be taking you?: Yes (Ex- will make sure she gets to her appt)Home Health AssistanceHas the home health nurse contacted you since you've been home?: N/ASurvey - RecognitionIs there anything you would like to share about your recent hospitalization, or anyone you would like to recognize?: NoDo you have any suggestions for improvement?: NoDo you have any other questions or concerns at this time?: NoFuture Appointments: Do you have any questions about your diagnosis? No Review reason for hospitalization and diagnosis: Acute on Chronic Exacerbation of systolic HF (EF 20-25%, class IV/stage C) SECONDARY DIAGNOSESAlcoholic Cirrhosis of the liver (s/p TIPS)Enterococcal faecalis bacteremia 2/2 infected hernia meshNSTEMI type 1CAD (s/p PCI)Lactic Acidosis likely 2/2 bacteremia Are you having any worsening symptoms? No Do you know what symptoms to watch for, and when to call your doctor? Yes CM reviewed s/s of worsening heart failurePlease give the patient contact numbers for our HF clinic or Discharging MD (Document contact information provided): Patient stated she has the number. CM sent request to HF team for f/u appt Do you understand your discharge instructions? YesCan you explain your Fluid restrictions? YesExample: 1.5L total fluid/24 hr-Specify patient's restriction: 50 ounces per dayAssess patient's understanding of what happens if they do not follow this restriction: Experience sob, swelling in legs, feet, ankles and/or stomach area, feeling fatigue more than usual, chest pains, rapid heartbeat, lightheadedness, sudden weight gain Emphasize importance of adherence: YesCan you explain your low sodium restriction? YesExample: 2gm/day-Specify patient's restriction:less than 2000 mg per day. Patient is aware that she consumes too much sodium and will be monitoringAssess patient's understanding of what happens if they do not follow this restriction: Experience sob, swelling in legs, feet, ankles and/or stomach area, feeling fatigue more than usual, chest pains, rapid heartbeat, lightheadedness, sudden weight gain Emphasize importance of adherence: YesAre you engaged in physical activity? YesEncourage/Educate (Refer to discharge instructions for activity): as tolerated Were you able to picker all of your medications? Yes Do you understand how to take your medications?YesStress importance of taking all medications as prescribed and address any questions: yes Has HF follow up appointment been scheduled? No May I assist with scheduling this appointment? Yes Do you have any questions about your follow up appointments? NoStress importance of attending this appointment. yesIf for some reason appointment with HF Clinic is not within 7 days, please notify Nurse Program Coordinators and document outcome: na Do you have transportation to your follow up appointments? Yes Has the home health nurse contacted you since you've been home? N/AEnsure they have contact info for [employer] company: na Have you received your DME? N/ADo you have a scale? YesEducate on daily weights, dry weight, weight log and what to do if they gain weight? CM educated patient on weighing self-daily after using the restroom and be watchful of sudden weight gain (more than 2-3 pounds in 1 day or 5 pounds in 1 week to notify MD).Do you have a BP/HR machine? YesEducate on keeping a log: yesPatient stated that [facility] staff gave her bp cuff, scale and pill box.CM reviewed HF action plan and daily zones checks with patient. 85390-3Xijkrclag encounter IgasON1126-63-33J37:20:35Telephone encounter NoteTXT1.2.840.527221.1.13.104.2.7.2.7 52846|[id number] for patient [id number] B David RNRONEN[address]TXTX[address]US SRPRGXUKEGMGQGATBAJC7384-82-75O32:20:3 51.2.840.683324.1.72.3.15|1.2.840.1143 50.1.13.104.2.7.2.727879_[id number] 2023-03-27 9674-96-47Y19:14:29Formatting of this [facility] 19:14:29 note might be different from the original.1800 Went in patients room to check on patient, blood noted on abdomen of gown, further investigation, Abdominal wound dressing oozing blood out of dressing from both sides. Pressure held, assisted patient to bed, Night resident paged VSS.Resident up to see patient, and assessing patient. Patient's son had called to say 30 minutes away to get patient, explained about patient's drainage and will have physician call him after. Son (Luis Carlos agreeable) Drainage has clotted, redressed abd wound, will draw labs, patient aware physician wanting patient not to be discharged, patient very emotional and stating "I just want to go home" Physician stated will talk to patients son, patient agreeable. 05260-7Nqcsh KgryBI0456-35-65X90:20:20Nurse NoteTXT1.2.840.583322.1.13.104.2.7.2.7 71438|[id number] for patient lmfv05209-8Mvsck NoteLNUT[address]TXTX[address]75[address]US RJEWWAVVQRSBNSRTQBYJ5152-10-34R87:20:2 01.2.840.942544.1.72.3.15|1.2.840.1143 50.1.13.104.2.7.2.727879_[id number] 2023-03-27 3035-35-90D04:55:08Formatting of this [facility] 16:55:08 note might be different from the original.Provided patient with written and verbal discharge instructions/education re heart failure, follow up, diet and medications. Patient verbalized understanding. Awaiting son to picker patient after he is done with his job approx 1830 25587-5Rzrbj KxnxFX2142-67-25X32:56:33Nurse NoteTXT1.2.840.111634.1.13.104.2.7.2.7 27874|[id number] for patient ddwp16296-1Hyelv [id number] NQJAKEGXESQHYTQNJUQC5086-07-83Q91:56:3 31.2.840.491662.1.72.3.15|1.2.840.1143 50.1.13.104.2.7.2.727879_[id number] 2023-03-27 8628-62-72V07:15:48Formatting of this [facility] 10:15:48 note might be different from the original.Called into room by patients call light, per patient states "I don't know where this blood is coming from?" Patient had accidentally pulled out midline from left arm, arm bleeding all over bed and patients gown about 2 feet by 2 feet area. Pressure held on left arm, midline found in bed dislodged from patient, catheter intact. Bleeding stopped, with pressure, coban applied to site, patient cleaned ,gown and linens changed, patient assisted up to chair, call light within reach. Red team notified and IV dislodged from patient. 73399-9Qyaki HrvnUH5675-68-38A00:19:10Nurse NoteTXT1.2.840.704006.1.13.104.2.7.2.7 93465|[id number] for patient xewi39099-8Ysjhd Note[address] NebvCwwnrblnoDaoxfdvdgPITO6784879069OU WCBVWHPDJWEZTWQNOVOG0576-26-05P33:19:1 01.2.840.508019.1.72.3.15|1.2.840.1143 50.1.13.104.2.7.2.727879_[id number] 2023-03-26 7058-52-30E37:57:36Formatting of this Darlene Watson [facility] 01:57:36 note might be different from the RN original.Problem: Discharge PlanningGoal: Adequate for dischargeOutcome: Progressing as expectedGoal: Effective communicationOutcome: Progressing as expected Problem: Discharge PlanningGoal: Adequate for dischargeOutcome: Progressing as expectedGoal: Adequate to move to next level of careOutcome: Progressing as expectedGoal: Knowledge of medication managementOutcome: Progressing as expected Problem: Cardiac Output - DecreasedGoal: Absence of signs and symptoms of decreased cardiac outputOutcome: Progressing as expected Problem: Falls, Risk ofGoal: Absence of fallsOutcome: Progressing as expected Problem: PainGoal: Control of pain at or below patient's documented comfort goalOutcome: Progressing as expectedGoal: Reduction in pain sensationOutcome: Progressing as expected Problem: Skin integrity Impaired (Risk or Actual)Goal: Wound healingOutcome: Progressing as expectedGoal: Prevention of new skin breakdownOutcome: Progressing as expected Problem: Tissue Perfusion, Cardiopulmonary - AlteredGoal: Circulatory function within specified parametersOutcome: Progressing as expected Problem: PainGoal: Control of pain at or below patient's documented comfort goalOutcome: Progressing as expectedGoal: Reduction in pain sensationOutcome: Progressing as expected Problem: Activity IntoleranceGoal: Improved activity toleranceOutcome: Progressing as expected Problem: Cardiac Output - DecreasedGoal: Cardiac output within specified parametersOutcome: Progressing as expectedGoal: Absence of signs and symptoms of decreased cardiac outputOutcome: Progressing as expected Problem: Tissue Perfusion, Cardiopulmonary - AlteredGoal: Circulatory function within specified parametersOutcome: Progressing as expected Problem: PainGoal: Control of pain at or below patient's documented comfort goalOutcome: Progressing as expectedGoal: Reduction in pain sensationOutcome: Progressing as expected Problem: Activity IntoleranceGoal: Improved activity toleranceOutcome: Progressing as expected Problem: Cardiac Output - DecreasedGoal: Cardiac output within specified parametersOutcome: Progressing as expectedGoal: Absence of signs and symptoms of decreased cardiac outputOutcome: Progressing as expected 31307-0Ezbi of care grypTN4027-99-50H21:58:06Plan of care noteTXT1.2.840.599626.1.13.104.2.7.2.7 03016|[id number] for patient [id number] Z Urdaneta RN[id number] JBPLOKWYVQSKCRHMOJMH5877-91-25L61:58:0 61.2.840.657005.1.72.3.15|1.2.840.1143 50.1.13.104.2.7.2.727879_[id number] 2023-03-25 3397-94-22M72:15:00Summary: Patient La Nena [facility] 15:15:00 removed TR BAND on her ownFormatting Nader killian RN of this note might be different from the original.Patient found in the shower - had removed her TR Band / immobilizer / and MERLE Bandage - LAST PTT was 88 when last checked - 90 minutes prior to her self removal of equipment - no bleeding from the site - no complaints of pain - vitals within normal range - no signs of distress - RED TEAM notified immediately - team went to the room to assess the patient - patient placed back in bed and immobilizer and merle wrap reapplied for remaining 24 hours 21167-0Rtuie RplqNG9200-25-61Y72:21:00Nurse NoteTXT1.2.840.177620.1.13.104.2.7.2.7 84104|[id number] for patient zafh36165-0KulmYM060212409Nhrxeawat Berkley-Garcia RNUT[id number] SRKJXSDSZABGSPIELRBF5594-03-88B31:21:0 01.2.840.159209.1.72.3.15|1.2.840.1143 50.1.13.104.2.7.2.727879_[id number] 2023-03-25 2839-43-27B60:00:26Formatting of this [facility] 07:00:26 note might be different from the original.Problem: Discharge PlanningGoal: Adequate for dischargeOutcome: Progressing as expectedGoal: Effective communicationOutcome: Progressing as expected Problem: Discharge PlanningGoal: Adequate for dischargeOutcome: Progressing as expectedGoal: Adequate to move to next level of careOutcome: Progressing as expectedGoal: Knowledge of medication managementOutcome: Progressing as expected Problem: Cardiac Output - DecreasedGoal: Absence of signs and symptoms of decreased cardiac outputOutcome: Progressing as expected Problem: Falls, Risk ofGoal: Absence of fallsOutcome: Progressing as expected Problem: PainGoal: Control of pain at or below patient's documented comfort goalOutcome: Progressing as expectedGoal: Reduction in pain sensationOutcome: Progressing as expected Problem: Skin integrity Impaired (Risk or Actual)Goal: Wound healingOutcome: Progressing as expectedGoal: Prevention of new skin breakdownOutcome: Progressing as expected Problem: Tissue Perfusion, Cardiopulmonary - AlteredGoal: Circulatory function within specified parametersOutcome: Progressing as expected Problem: PainGoal: Control of pain at or below patient's documented comfort goalOutcome: Progressing as expectedGoal: Reduction in pain sensationOutcome: Progressing as expected Problem: Activity IntoleranceGoal: Improved activity toleranceOutcome: Progressing as expected Problem: Cardiac Output - DecreasedGoal: Cardiac output within specified parametersOutcome: Progressing as expectedGoal: Absence of signs and symptoms of decreased cardiac outputOutcome: Progressing as expected 53597-6Igvj of care zklnLF3421-16-45Y61:00:41Plan of care noteTXT1.2.840.728855.1.13.104.2.7.2.7 75993|[id number] for patient qrig03530-8KnnxYEAVJRCKTW[address] PxzwYxodvqblqEmgmkyslrDAWB9867964875CW NTRPAXVHMSATHUOOADUY9812-00-65M29:00:4 11.2.840.504695.1.72.3.15|1.2.840.1143 50.1.13.104.2.7.2.727879_[id number] 2023-03-24 9343-50-86I08:44:43Formatting of this Renan Castellon RN [facility] 23:44:43 note might be different from the original.Problem: Discharge PlanningGoal: Adequate for dischargeOutcome: Progressing as expectedGoal: Effective communicationOutcome: Progressing as expected Problem: Discharge PlanningGoal: Adequate for dischargeOutcome: Progressing as expectedGoal: Adequate to move to next level of careOutcome: Progressing as expectedGoal: Knowledge of medication managementOutcome: Progressing as expected Problem: Cardiac Output - DecreasedGoal: Absence of signs and symptoms of decreased cardiac outputOutcome: Progressing as expected Problem: Falls, Risk ofGoal: Absence of fallsOutcome: Progressing as expected Problem: PainGoal: Control of pain at or below patient's documented comfort goalOutcome: Progressing as expectedGoal: Reduction in pain sensationOutcome: Progressing as expected Problem: Skin integrity Impaired (Risk or Actual)Goal: Wound healingOutcome: Progressing as expectedGoal: Prevention of new skin breakdownOutcome: Progressing as expected Problem: Tissue Perfusion, Cardiopulmonary - AlteredGoal: Circulatory function within specified parametersOutcome: Progressing as expected Problem: PainGoal: Control of pain at or below patient's documented comfort goalOutcome: Progressing as expectedGoal: Reduction in pain sensationOutcome: Progressing as expected Problem: Activity IntoleranceGoal: Improved activity toleranceOutcome: Progressing as expected Problem: Cardiac Output - DecreasedGoal: Cardiac output within specified parametersOutcome: Progressing as expectedGoal: Absence of signs and symptoms of decreased cardiac outputOutcome: Progressing as expected 66107-3Hyup of care ukelMC8338-38-49E72:44:46Plan of care noteTXT1.2.840.708882.1.13.104.2.7.2.7 03567|[id number] for patient [id number] Zuniga RN[id number] EFTFVGYLZBFCSYKATRTO6378-88-69F92:44:4 61.2.840.044558.1.72.3.15|1.2.840.1143 50.1.13.104.2.7.2.727879_[id number] 2023-03-24 4996-12-11P64:22:03Formatting of this Hank brewer RN [facility] 17:22:03 note might be different from the original.Problem: Discharge PlanningGoal: Adequate for dischargeOutcome: Progressing as expectedGoal: Effective communicationOutcome: Progressing as expected Problem: Discharge PlanningGoal: Adequate for dischargeOutcome: Progressing as expectedGoal: Adequate to move to next level of careOutcome: Progressing as expectedGoal: Knowledge of medication managementOutcome: Progressing as expected Problem: Cardiac Output - DecreasedGoal: Absence of signs and symptoms of decreased cardiac outputOutcome: Progressing as expected Problem: Falls, Risk ofGoal: Absence of fallsOutcome: Progressing as expected Problem: PainGoal: Control of pain at or below patient's documented comfort goalOutcome: Progressing as expectedGoal: Reduction in pain sensationOutcome: Progressing as expected Problem: Skin integrity Impaired (Risk or Actual)Goal: Wound healingOutcome: Progressing as expectedGoal: Prevention of new skin breakdownOutcome: Progressing as expected Problem: Tissue Perfusion, Cardiopulmonary - AlteredGoal: Circulatory function within specified parametersOutcome: Progressing as expected Problem: PainGoal: Control of pain at or below patient's documented comfort goalOutcome: Progressing as expectedGoal: Reduction in pain sensationOutcome: Progressing as expected Problem: Activity IntoleranceGoal: Improved activity toleranceOutcome: Progressing as expected Problem: Cardiac Output - DecreasedGoal: Cardiac output within specified parametersOutcome: Progressing as expectedGoal: Absence of signs and symptoms of decreased cardiac outputOutcome: Progressing as expected 49056-1Ykmv of care lthoMD7471-47-49W76:22:06Plan of care noteTXT1.2.840.321177.1.13.104.2.7.2.7 09589|[id number] for patient [id number] A Shields RN[id number] XVHEGNCANMXOBQOBWSGW1059-13-29W29:22:0 61.2.840.337706.1.72.3.15|1.2.840.1143 50.1.13.104.2.7.2.727879_[id number] 2023-03-24 9557-89-29L03:44:50Formatting of this [facility] 01:44:50 note might be different from the original.Problem: Discharge PlanningGoal: Adequate for dischargeOutcome: Progressing as expectedGoal: Effective communicationOutcome: Progressing as expected Problem: Discharge PlanningGoal: Adequate for dischargeOutcome: Progressing as expectedGoal: Adequate to move to next level of careOutcome: Progressing as expectedGoal: Knowledge of medication managementOutcome: Progressing as expected Problem: Cardiac Output - DecreasedGoal: Absence of signs and symptoms of decreased cardiac outputOutcome: Progressing as expected Problem: Falls, Risk ofGoal: Absence of fallsOutcome: Progressing as expected Problem: PainGoal: Control of pain at or below patient's documented comfort goalOutcome: Progressing as expectedGoal: Reduction in pain sensationOutcome: Progressing as expected Problem: Skin integrity Impaired (Risk or Actual)Goal: Wound healingOutcome: Progressing as expectedGoal: Prevention of new skin breakdownOutcome: Progressing as expected Problem: Tissue Perfusion, Cardiopulmonary - AlteredGoal: Circulatory function within specified parametersOutcome: Progressing as expected Problem: PainGoal: Control of pain at or below patient's documented comfort goalOutcome: Progressing as expectedGoal: Reduction in pain sensationOutcome: Progressing as expected Problem: Activity IntoleranceGoal: Improved activity toleranceOutcome: Progressing as expected Problem: Cardiac Output - DecreasedGoal: Cardiac output within specified parametersOutcome: Progressing as expectedGoal: Absence of signs and symptoms of decreased cardiac outputOutcome: Progressing as expected 99462-1Fsht of care hykiAH7791-66-08I02:44:54Plan of care noteTXT1.2.840.408649.1.13.104.2.7.2.7 65181|[id number] for patient thmh23217-4BnqbLSKDLQGUMI[address]vdG[id number] QWCNUGTKTAHGNVNRHDXF8054-34-62L60:44:5 41.2.840.917214.1.72.3.15|1.2.840.1143 50.1.13.104.2.7.2.727879_[id number] 2023-03-23 5053-29-62L59:08:54Formatting of this Bria Sands [facility] 14:08:54 note is different from the original. Rena sands RN 03/23/23 1400 Patient Observation Observations Patient abdominal dressing saturated with blood and clots. Removed dressing cleansed w/NS and covered with gauze and ABD pad and foam tape. Gown and underwear changed. lab drawn for CBC. Will notify red team. 14357-9Gxfif KkdsNY1776-93-45U37:08:58Nurse NoteTXT1.2.840.193058.1.13.104.2.7.2.7 69127|[id number] for patient zybo27216-7QwemAN882819894Hgvdosmh A Brooks-Dupla RNUT[id number] JSLFZHYWEPYQLRYWGZFP5500-65-17E02:08:5 81.2.840.313436.1.72.3.15|1.2.840.1143 50.1.13.104.2.7.2.727879_[id number] 2023-03-23 6052-63-65L71:36:05Formatting of this [facility] 07:36:05 note might be different from the original.Problem: Discharge PlanningGoal: Adequate for dischargeOutcome: Progressing as expectedGoal: Effective communicationOutcome: Progressing as expected Problem: Discharge PlanningGoal: Adequate for dischargeOutcome: Progressing as expectedGoal: Adequate to move to next level of careOutcome: Progressing as expectedGoal: Knowledge of medication managementOutcome: Progressing as expected Problem: Cardiac Output - DecreasedGoal: Absence of signs and symptoms of decreased cardiac outputOutcome: Progressing as expected Problem: Falls, Risk ofGoal: Absence of fallsOutcome: Progressing as expected Problem: PainGoal: Control of pain at or below patient's documented comfort goalOutcome: Progressing as expectedGoal: Reduction in pain sensationOutcome: Progressing as expected Problem: Skin integrity Impaired (Risk or Actual)Goal: Wound healingOutcome: Progressing as expectedGoal: Prevention of new skin breakdownOutcome: Progressing as expected Problem: Tissue Perfusion, Cardiopulmonary - AlteredGoal: Circulatory function within specified parametersOutcome: Progressing as expected Problem: PainGoal: Control of pain at or below patient's documented comfort goalOutcome: Progressing as expectedGoal: Reduction in pain sensationOutcome: Progressing as expected Problem: Activity IntoleranceGoal: Improved activity toleranceOutcome: Progressing as expected Problem: Cardiac Output - DecreasedGoal: Cardiac output within specified parametersOutcome: Progressing as expectedGoal: Absence of signs and symptoms of decreased cardiac outputOutcome: Progressing as expected 52767-0Zfow of care wdjsXB2829-44-06T21:36:13Plan of care noteTXT1.2.840.975751.1.13.104.2.7.2.7 80564|[id number] for patient cpsr49461-9NaejCBNAYQIEYK[id number] NZEOAPSGVVDPAXBDJBWW2164-12-14E10:36:1 31.2.840.113757.1.72.3.15|1.2.840.1143 50.1.13.104.2.7.2.727879_[id number] 2023-03-23 1456-83-91I22:17:35Formatting of this [facility] 07:17:35 note might be different from the original.Received report from off going nurse regarding patient bleeding from abdominal wound. Went to bedside to look at old dressing large bloody clots noted. Notified red team who came to bedside to assess patient bleeding moderate amounts of blood from abdominal wound. Red team consulting surgery to come assess. BMP added to labs. 03426-8Zekfp IpyyFN9937-52-33T48:24:22Nurse NoteTXT1.2.840.909469.1.13.104.2.7.2.7 52781|[id number] for patient thpg31810-7HsdlRBHALCXIUN[id number] VUTJIBTJOLAQOYSNWWIK3235-69-96P78:24:2 21.2.840.279371.1.72.3.15|1.2.840.1143 50.1.13.104.2.7.2.727879_[id number] 2023-03-23 3006-80-99P95:30:00Formatting of this [facility] 03:30:00 note might be different from the original.The nurse notified the MD on duty of that the Pt's abdominal dressing from an old surgical wound was saturated with blood accompanied by a few clots. The Pt is currently hemodynamically stable and non-symptomatic. The nurse was instructed to continue to monitor the Pt and to report any abnormal lab findings. The nurse will continue to monitor the Pt. 25847-5Tsokg XefxJG8894-62-69H90:27:31Nurse NoteTXT1.2.840.628430.1.13.104.2.7.2.7 73506|[id number] for patient cmyj50898-2DiveECOEZWMQBS92 [address]CbegEfaecxqecDgbjfxniwKGVI1965235934YB BYUSVPUGLYDPGWVIWVNZ3909-88-43D86:27:3 11.2.840.267259.1.72.3.15|1.2.840.1143 50.1.13.104.2.7.2.727879_[id number] 2023-03-23 5225-41-83G42:14:53Formatting of this [facility] 02:14:53 note might be different from the original.Problem: Discharge PlanningGoal: Adequate for dischargeOutcome: Progressing as expectedGoal: Effective communicationOutcome: Progressing as expected Problem: Discharge PlanningGoal: Adequate for dischargeOutcome: Progressing as expectedGoal: Adequate to move to next level of careOutcome: Progressing as expectedGoal: Knowledge of medication managementOutcome: Progressing as expected Problem: Cardiac Output - DecreasedGoal: Absence of signs and symptoms of decreased cardiac outputOutcome: Progressing as expected Problem: Falls, Risk ofGoal: Absence of fallsOutcome: Progressing as expected Problem: PainGoal: Control of pain at or below patient's documented comfort goalOutcome: Progressing as expectedGoal: Reduction in pain sensationOutcome: Progressing as expected Problem: Skin integrity Impaired (Risk or Actual)Goal: Wound healingOutcome: Progressing as expectedGoal: Prevention of new skin breakdownOutcome: Progressing as expected Problem: Tissue Perfusion, Cardiopulmonary - AlteredGoal: Circulatory function within specified parametersOutcome: Progressing as expected Problem: PainGoal: Control of pain at or below patient's documented comfort goalOutcome: Progressing as expectedGoal: Reduction in pain sensationOutcome: Progressing as expected Problem: Activity IntoleranceGoal: Improved activity toleranceOutcome: Progressing as expected Problem: Cardiac Output - DecreasedGoal: Cardiac output within specified parametersOutcome: Progressing as expectedGoal: Absence of signs and symptoms of decreased cardiac outputOutcome: Progressing as expected 49810-8Wgni of care yyenSO2596-96-88C06:14:57Plan of care noteTXT1.2.840.785748.1.13.104.2.7.2.7 21118|[id number] for patient wtht54063-1YrhzAQRNJOVMTE[id number] LRPVMEJRJFKGIEBDUZCI1413-36-35B15:14:5 71.2.840.748631.1.72.3.15|1.2.840.1143 50.1.13.104.2.7.2.727879_[id number] 2023-03-22 0701-53-34C59:16:13Formatting of this Nilda meng [facility] 04:16:13 note might be different from the RN original.Problem: Cardiac Output - DecreasedGoal: Absence of signs and symptoms of decreased cardiac outputOutcome: Progressing as expected Problem: Falls, Risk ofGoal: Absence of fallsOutcome: Progressing as expected Problem: PainGoal: Control of pain at or below patient's documented comfort goalOutcome: Progressing as expectedGoal: Reduction in pain sensationOutcome: Progressing as expected Problem: Skin integrity Impaired (Risk or Actual)Goal: Wound healingOutcome: Progressing as expectedGoal: Prevention of new skin breakdownOutcome: Progressing as expected Problem: Tissue Perfusion, Cardiopulmonary - AlteredGoal: Circulatory function within specified parametersOutcome: Progressing as expected 89687-7Mtvz of care sxxuCD1187-65-10D19:16:35Plan of care noteTXT1.2.840.730622.1.13.104.2.7.2.7 56789|[id number] for patient oyuu10953-4SeafVY164422101Wshhwk [place] [address]IM[address]LY[id number] BHTLPGOGVZKXOUJPLVVU7885-71-04F90:16:3 51.2.840.747060.1.72.3.15|1.2.840.1143 50.1.13.104.2.7.2.727879_[id number] 2023-03-21 9277-03-77N18:31:58Formatting of [facility] 19:31:58 note might be different from the original.Problem: Discharge PlanningGoal: Adequate for dischargeOutcome: Progressing as expectedGoal: Effective communicationOutcome: Progressing as expected Problem: Discharge PlanningGoal: Adequate for dischargeOutcome: Progressing as expectedGoal: Adequate to move to next level of careOutcome: Progressing as expectedGoal: Knowledge of medication managementOutcome: Progressing as expected Problem: Cardiac Output - DecreasedGoal: Absence of signs and symptoms of decreased cardiac outputOutcome: Progressing as expected Problem: Falls, Risk ofGoal: Absence of fallsOutcome: Progressing as expected Problem: PainGoal: Control of pain at or below patient's documented comfort goalOutcome: Progressing as expected Problem: Skin integrity Impaired (Risk or Actual)Goal: Wound healingOutcome: Progressing as expectedGoal: Prevention of new skin breakdownOutcome: Progressing as expected 87889-0Tidc of care daycKZ8561-70-38A72:32:08Plan of care noteTXT1.2.840.753815.1.13.104.2.7.2.7 16819|[id number] for patient djuw60443-0DecmXRBAMQMBBO[id number] APRHGNAOXFNPGWQKRFYG8956-78-51J92:32:0 81.2.840.948323.1.72.3.15|1.2.840.1143 50.1.13.104.2.7.2.727879_[id number] 2023-03-21 2572-85-98U92:46:52Formatting of this Cristóbal ramsey [facility] 17:46:52 note might be different from the original.Pharmacist Renal Dosing Adjustment NotePer chart review, patient Amauri Henson meets criteria for renal dose adjustment.Please note that the following medication(s) have been renally adjusted per P[employer]T approved pharmacist renal adjustment policy: Ampicillin 2 g IV q6h to y0hZtjjcn call with questions or concerns. ____[facility] [id number] 17:46 01620-0Cgmcj NoniVU5132-40-09X39:47:00Nurse NoteTXT1.2.840.842955.1.13.104.2.7.2.7 57297|[id number] for patient gsgk40452-3KbbvZN651674226Rvzk [id number] SVASFMJAPVRIRYFNHKLT9046-98-58T34:47:0 01.2.840.228445.1.72.3.15|1.2.840.1143 50.1.13.104.2.7.2.727879_[id number] 2023-03-21 9217-11-07Z35:04:49Formatting of this [facility] 01:04:49 note might be different from the original.Problem: Cardiac Output - DecreasedGoal: Absence of signs and symptoms of decreased cardiac outputOutcome: Progressing as expected Problem: Falls, Risk ofGoal: Absence of fallsOutcome: Progressing as expected Problem: PainGoal: Control of pain at or below patient's documented comfort goalOutcome: Progressing as expectedGoal: Reduction in pain sensationOutcome: Progressing as expected Problem: Skin integrity Impaired (Risk or Actual)Goal: Wound healingOutcome: Progressing as expectedGoal: Prevention of new skin breakdownOutcome: Progressing as expected Problem: Tissue Perfusion, Cardiopulmonary - AlteredGoal: Circulatory function within specified parametersOutcome: Progressing as expected Problem: PainGoal: Control of pain at or below patient's documented comfort goalOutcome: Progressing as expectedGoal: Reduction in pain sensationOutcome: Progressing as expected Problem: Cardiac Output - DecreasedGoal: Cardiac output within specified parametersOutcome: Progressing as expectedGoal: Absence of signs and symptoms of decreased cardiac outputOutcome: Progressing as expected 21645-1Foxa of care osvbKE6068-90-99V94:05:12Plan of care noteTXT1.2.840.300774.1.13.104.2.7.2.7 26325|[id number] for patient ajwa56987-2VetrGNCYVGWRZX[id number] DVHASZKRMGPDFSOBQQSR9906-11-74X35:05:1 21.2.840.292815.1.72.3.15|1.2.840.1143 50.1.13.104.2.7.2.727879_[id number] 2023-03-20 7265-08-67Y95:41:59Formatting of this [facility] 17:41:59 note might be different from the original.Problem: Discharge PlanningGoal: Adequate for dischargeOutcome: Progressing as expectedGoal: Effective communicationOutcome: Progressing as expected Problem: Discharge PlanningGoal: Adequate for dischargeOutcome: Progressing as expectedGoal: Adequate to move to next level of careOutcome: Progressing as expectedGoal: Knowledge of medication managementOutcome: Progressing as expected Problem: Cardiac Output - DecreasedGoal: Absence of signs and symptoms of decreased cardiac outputOutcome: Progressing as expected Problem: Falls, Risk ofGoal: Absence of fallsOutcome: Progressing as expected Problem: PainGoal: Control of pain at or below patient's documented comfort goalOutcome: Progressing as expectedGoal: Reduction in pain sensationOutcome: Progressing as expected Problem: Skin integrity Impaired (Risk or Actual)Goal: Wound healingOutcome: Progressing as expectedGoal: Prevention of new skin breakdownOutcome: Progressing as expected 09915-6Xlha of care ganqUS4686-22-19J47:42:13Plan of care noteTXT1.2.840.789815.1.13.104.2.7.2.7 34551|[id number] for patient uxxd64416-1GykfFQKNCXPUCB[id number] QNLKVAQTUMWBKPSPWVWU4632-75-35E64:42:1 31.2.840.788020.1.72.3.15|1.2.840.1143 50.1.13.104.2.7.2.727879_[id number] 2023-03-20 2729-44-01R56:10:29Formatting of this [facility] 02:10:29 note might be different from the original.Problem: Discharge PlanningGoal: Adequate for dischargeOutcome: Progressing as expectedGoal: Effective communicationOutcome: Progressing as expected Problem: Cardiac Output - DecreasedGoal: Absence of signs and symptoms of decreased cardiac outputOutcome: Progressing as expected Problem: Falls, Risk ofGoal: Absence of fallsOutcome: Progressing as expected Problem: PainGoal: Control of pain at or below patient's documented comfort goalOutcome: Progressing as expectedGoal: Reduction in pain sensationOutcome: Progressing as expected Problem: Skin integrity Impaired (Risk or Actual)Goal: Wound healingOutcome: Progressing as expectedGoal: Prevention of new skin breakdownOutcome: Progressing as expected Problem: Tissue Perfusion, Cardiopulmonary - AlteredGoal: Circulatory function within specified parametersOutcome: Progressing as expected 21046-4Qarl of care lffmFB8575-53-66R04:11:05Plan of care noteTXT1.2.840.460510.1.13.104.2.7.2.7 97914|[id number] for patient ewnk44642-0GyqzSUVPNDDDSS[id number] LYDCPPMQZBIOLDHLTHCW7534-19-30G03:11:0 51.2.840.309153.1.72.3.15|1.2.840.1143 50.1.13.104.2.7.2.727879_[id number] 2023-03-19 8843-14-68V94:01:59Formatting of this [facility] 16:01:59 note might be different from the original.Problem: Discharge PlanningGoal: Adequate for dischargeOutcome: Progressing as expectedGoal: Effective communicationOutcome: Progressing as expected Problem: Discharge PlanningGoal: Adequate for dischargeOutcome: Progressing as expectedGoal: Adequate to move to next level of careOutcome: Progressing as expectedGoal: Knowledge of medication managementOutcome: Progressing as expected Problem: Cardiac Output - DecreasedGoal: Absence of signs and symptoms of decreased cardiac outputOutcome: Progressing as expected Problem: Falls, Risk ofGoal: Absence of fallsOutcome: Progressing as expected Problem: PainGoal: Control of pain at or below patient's documented comfort goalOutcome: Progressing as expectedGoal: Reduction in pain sensationOutcome: Progressing as expected Problem: Skin integrity Impaired (Risk or Actual)Goal: Wound healingOutcome: Progressing as expectedGoal: Prevention of new skin breakdownOutcome: Progressing as expected Problem: Tissue Perfusion, Cardiopulmonary - AlteredGoal: Circulatory function within specified parametersOutcome: Progressing as expected Problem: PainGoal: Control of pain at or below patient's documented comfort goalOutcome: Progressing as expectedGoal: Reduction in pain sensationOutcome: Progressing as expected Problem: Activity IntoleranceGoal: Improved activity toleranceOutcome: Progressing as expected Problem: Cardiac Output - DecreasedGoal: Cardiac output within specified parametersOutcome: Progressing as expectedGoal: Absence of signs and symptoms of decreased cardiac outputOutcome: Progressing as expected 93449-9Gxdp of care koljGH8293-89-13X51:02:03Plan of care noteTXT1.2.840.679939.1.13.104.2.7.2.7 44161|[id number] for patient hgpq36282-9BfrtDWMHUEOHKJ[address]vdG[id number] HUKOPBWJMGXIWWNTVWBZ7368-88-18G44:02:0 31.2.840.804679.1.72.3.15|1.2.840.1143 50.1.13.104.2.7.2.727879_[id number] 2023-03-19 5511-39-54V79:34:01Formatting of this [facility] 06:34:01 note might be different from the RN original.Problem: Discharge PlanningGoal: Adequate for dischargeOutcome: Progressing as expectedGoal: Effective communicationOutcome: Progressing as expected Problem: Discharge PlanningGoal: Adequate for dischargeOutcome: Progressing as expectedGoal: Adequate to move to next level of careOutcome: Progressing as expectedGoal: Knowledge of medication managementOutcome: Progressing as expected Problem: Cardiac Output - DecreasedGoal: Absence of signs and symptoms of decreased cardiac outputOutcome: Progressing as expected Problem: Falls, Risk ofGoal: Absence of fallsOutcome: Progressing as expected Problem: PainGoal: Control of pain at or below patient's documented comfort goalOutcome: Progressing as expectedGoal: Reduction in pain sensationOutcome: Progressing as expected Problem: Skin integrity Impaired (Risk or Actual)Goal: Wound healingOutcome: Progressing as expectedGoal: Prevention of new skin breakdownOutcome: Progressing as expected Problem: Tissue Perfusion, Cardiopulmonary - AlteredGoal: Circulatory function within specified parametersOutcome: Progressing as expected Problem: PainGoal: Control of pain at or below patient's documented comfort goalOutcome: Progressing as expectedGoal: Reduction in pain sensationOutcome: Progressing as expected Problem: Activity IntoleranceGoal: Improved activity toleranceOutcome: Progressing as expected Problem: Cardiac Output - DecreasedGoal: Cardiac output within specified parametersOutcome: Progressing as expectedGoal: Absence of signs and symptoms of decreased cardiac outputOutcome: Progressing as expected 62494-2Cshd of care ewchNG0037-44-14U46:34:04Plan of care noteTXT1.2.840.367590.1.13.104.2.7.2.7 84834|[id number] for patient xmic47121-9DveyGT294698350Kobbo Albino Mackey RNUTMBUT[id number] OSWPMZZWCIRSINHZTLDX2334-82-01E11:34:0 41.2.840.346192.1.72.3.15|1.2.840.1143 50.1.13.104.2.7.2.727879_[id number] 2019-05-02 ZTgaklligfq256387289719-65-39Q16:37:00 [facility] 14:37:00 3937-[address] [address] PATIENT NAME: AMAURI CAPELLAN ADMIT DATE: 04/27/19ACCOUNT NO: [id number] ROOM NO: B.[facility] AGE: 48 REPORT TYPE: DISCHARGE SUMMARY SEX: F ADMITTING PHYSICIAN:May Dewitt MD ATTENDING PHYSICIAN:May Dewitt MD ADMISSION DATE: 04/27/2019DISCHARGE DATE: 05/02/2019 PRIMARY CARE PHYSICIAN: In [facility] COURSE: This is [place] 48[place] [facility] [place] [facility], [place], vomiting, hematemesis and black stools. Thepatient also had history of cirrhosis, admitted with diagnosis of septic shockwith lactate of more than 6 and with cirrhosis and upper GI bleed with varices.GI was consulted, was started on broad-spectrum antibiotics, also had severeascites. IR was consulted for paracentesis. The patient was seen bycardiologist due to elevated troponin levels and for preop evaluation prior toEGD. Had EGD done by Dr. South. PPI was continued. The patient remained inICU and later on she was able to be transferred out of ICU and has beenimproving. Had paracentesis by IR. Cultures stayed negative. The patient wasstarted on vancomycin for gram-positive cocci in blood, but at this time theycame back as a contamination. All of the cultures came back as contamination.Repeat blood cultures are negative. Plan was to discharge the patient today.The patient had a paracentesis yesterday as well. Today, she really wants to gohome. She states that she will leave AMA if not discharged. She is cleared by cardiology. Stress test was done, it came back as negative. Cleared by GI and all the consultants for the discharge. H and H has been negative. Denies any further bleeding. States that she is on the medical regimen and has a primary care physician and GI doctor in [place] and her cousin is on her way to come pick her up and again insisting to go home today. RN reports that she had a temperature of 100 earlier today, so I recommended to watch the temperature overnight today and make sure that she does not have any temperature, but the patient again seems to be leaning towards leaving and most likely will leave once her cousin is here, understands all the risk, but wants to sign AMA papers and leave once the cousin is here. If she agrees to stay, then she will be watched overnight and if remains fever free, then can be discharged tomorrow, but again the patient seems to be leaning towards leaving AMA once the cousin is here. She states that she has her doctor, GI doctor, primary care doctor and also gets paracentesis on regular basis every 2 weeks and her doctors are arranging it in [place] and agrees to follow up with primary care physician and GI on Saturday. FINAL DIAGNOSES:1. Septic shock, on presentation, resolved.2. Upper gastrointestinal bleed.3. Acute blood loss anemia.4. Now H and H is better. PATIENT NAME: AMAURI CAPELLAN 5. Severe recurrent ascites, increasing, paracentesis regularly as outpatient.6. Elevated troponin. Stress test negative. Cleared by cardiology for thedischarge.7. Hepatic encephalopathy, resolved. DISPOSITION: Home. DISCHARGE MEDICATIONS: See medication reconciliation form. DISCHARGE INSTRUCTIONS: The patient is actually recommended to stay today, butagain she is wanting to leave AMA, agrees to follow up with primary carephysician, GI, and IR on Saturday and recommended to go to the ER if any of thesymptoms worsens. Recommended to monitor the blood pressure. The patient isplanning to leave AMA. Dictated By: Chas Hilliard MD WT: DS:RAMILA/SARA/NTSDD: 05/02/2019 14:37:59DT: 05/03/2019 01:19:18Conf#: [id number]/DID#: [id number] Authenticated and Edited by Chas Hilliard MD On 05/03/19 11:39:48 PM at 2341 PATIENT NAME: AMAURI CAPELLAN wgfaejs9427-21-80N98:19:00B.[id number] 9-0013AVAvailable for patient abgiNSBCLDUEXHVEXA8469-06-68S21:41:45 2019-05-02 RGurcygfkft244414527165-47-04G76:26:00 [facility] 09:26:00 [facility] Prog.Note-VancomycinREPORT#:[id number] REPORT STATUS: SignedDATE:05/02/19 TIME: 925 PATIENT: AMAURI CAPELLAN UNIT #: [id number]#: [id number] [facility] AGE: 48 SEX: F ATTEND: May Dewitt [facility] AUTHOR: Abiodun Barlow [facility] * ALL edits or amendments must be made on the electronic/computer document * Vancomycin VancomycinMedication Therapy:Vancomycin Labs:Laboratory Tests: 05/01 2116 Toxicology Vancomycin Trough (10 - 20 mcG/ML) 23.1 H Laboratory Test : 05/02 030 Chemistry BUN (7 - 18 MG/DL) 22 H Creatinine (0.55 - 1.30 MG/DL) 0.97 Microbiology:04/30 121 BLOOD: Blood Culture - RES04/30 1213 BLOOD: Blood Culture - RES Treatment plan: consult (VANC TROUGH=23.1)Regimen: 243 SEPSIS GOAL 15-20 VANCOMYCIN 1500MG IVPB Q12HRS (1000,2200)TROUGH DUE 05-01-2019 @ 2100 = 23.1; 2200 DOSE WAS NOT GIVEN;LAST DOSE WAS GIVEN @904 ON 05/01; TROUGH WAS TAKEN @2115 ON 05/01 ON TIME;CHANGE ORDER TO; VANC 1.25GM IV Q12H (1000,2200);NEXT TROUGH DUE: 05/03 @2100= 04/30 SCR 1.09 CRCL 97 ML/MIN;05/01 SCR 0.96; CRCL=84ML/MIN;05/01 SCR 0.97; CRCL=83ML/MIN; at 0927 RPT #:[id number] OF REPORTPRProgress Pppj6536-39-16A68:26:00B.JFXV40879694- 0130AVAvailable for patient bhrhIVYPQQNLCPHUSO4938-87-33N67:27:20 2019-05-01 TLrwopfwuie931530653604-53-26O03:11:00 [facility] 17:11:00 [facility] ([facility])Op/Inv Procedure Note - BriefREPORT#:[id number] REPORT STATUS: SignedDATE:05/01/19 TIME: 1711 PATIENT: AMAURI CAPELLAN UNIT #: [id number]#: [id number] [facility] [birth year] AGE: 48 SEX: F ATTEND: May Dewitt AUTHOR: Shilo Tesfaye MD * ALL edits or amendments must be made on the electronic/computer document * Op/Inv Proc Note - Brief TEXT Brief Op/Inv Procedure NoteNote details:Pre-procedure: Ascites Post-procedure: Same Procedure: US-guided paracentesis Primary Surgeon: Dr. Moultontants: None Anesthetic: Local; EBL: Less than 10 cc Specimens Removed: None Complications: None Drains: None Fluid Findings: Harrison clear. Full procedure details will be under imaging. at 1711 RPT #:[id number] OF REPORTPNProcedure khax6337-55-71K49:11:00B.RZKE83437365- 0626AVAvailable for patient jghiLJUEEVWDQSNINY9311-86-50F82:12:05 2019-05-01 PDeurwyejui275502875009-38-63D14:30:00 [facility] 11:30:00 [facility])Cardiology Progress NoteREPORT#:[id number] REPORT STATUS: SignedDATE:05/01/19 TIME: 1130 PATIENT: AMAURI CAPELLAN UNIT #: [id number]#: [id number] [address] [birth year] AGE: 48 SEX: F ATTEND: May Dewitt [facility] AUTHOR: Magdalene Smart MD * ALL edits or amendments must be made on the electronic/computer document * Subjective Free Text Subj NotesFree Text Subj Notes:Patient is seen in the stress lab. She denies any active chest pain, palpitations or dizziness. Objective GeneralVS/I O:Vital Signs: Date Time Temp Pulse Resp B/P B/P Pulse O2 O2 Flow FiO2 Mean Ox Delivery Rate 05/01 0905 90/59 69.3 05/01 826 99.5 90 18 83/53 63.1 94 Room air 05/01 318 99.1 86 12 94/58 69.8 97 04/309 98.8 81 12 97/56 70.1 97 04/30 2054 98.4 79 14 96/59 71.2 100 04/30 1959 97.7 84 18 107/69 81.9 96 04/30 1621 98.1 85 18 104/65 78.1 98 Room air 04/30 1535 98 21 04/30 1207 98.6 83 20 110/68 81.6 98 Room air Patient Weight Weight (lb): 217Weight (oz): 2.49Weight (kg): 98.500 Free Text Obj NotesFree Text Obj Notes:General Impression: Alert and oriented x3, not in acute distressHEENT: Normocephalic atraumatic, extraocular movements intact, pupils equal and reactive to light bilaterallyCardiovascular: Heart regular rate and rhythm, S1 S2 audible, no murmursChest: Lungs clear to auscultation bilaterally, no rhonchi, no wheeze, no ralesAbdomen: Bowel sounds present, abdomen soft, non-tender, non-distended, no organomegalyExtremities: No cyanosis, clubbing or edema. Diagnosis, Assessment Plan Free Text DxA P NotesFree Text DxA P Notes:1. Preprocedure evaluation, cardiac clearancePatient with history of hypertension and cirrhosisShe denies history of diabetes, hyperlipidemia, stroke, CHF, lung disease or kidney diseaseMinimal troponin elevation likely demand ischemia in the setting of severe anemiaPatient of moderate risk for perioperative cardiovascular events. 2. GI bleed/Severe anemiaManagement per GI team. 3. Hypertension, Benign:Blood pressure will be checked at regular intervals and dose adjustment will be made accordingly.Patient is educated about the importance of low-sodium diet and exercise is recommended.Side effects of the medications currently being used for the patient were explained to him in detail. 4. AscitesStatus post paracentesis 5. Elevated lactic acid 6. Elevated troponinLikely demand ischemia in the setting of severe anemiano hx CAD, no CPObtain echo to evaluate LVEF, assess for RWMA and valve diseasePatient underwent stress test today. Pending results. at 1131 RPT #:[id number] OF REPORTPRProgress [id number]:30:00B.[id number] for patient [id number]:32:04 2019-05-01 [id number]:30:00 HCACR 11:30:00 [facility] ([facility])Hospitalist Progress NoteREPORT#:[id number] REPORT STATUS: SignedDATE:05/01/19 TIME: 1130 PATIENT: AMAURI CAPELLAN UNIT #: [id number]#: [id number] [facility] AGE: 48 SEX: F ATTEND: May Dewitt MDA AUTHOR: Chas Hilliard MD * ALL edits or amendments must be made on the electronic/computer document * SubjectiveChief Complaint:pt seen in roomblood Cx 1/2 +ve for GPCon vanc Back from stress testAbd is distendedPt has no c/o other than abdominal distentionDenies CP/sobPatient reports:Yes: resting comfortably. No: chest pain, chills, constipation, cough, diarrhea, dizziness, fever, headache, nausea, pain, shortness of breath, vomiting. Nursing reports:No: complaints. Objective GeneralVS/I O:Vital Signs: Date Time Temp Pulse Resp B/P B/P Pulse O2 O2 Flow FiO2 Mean Ox Delivery Rate 05/01 1209 37.5 82 18 100/61 73.9 99 Room air 05/01 0905 90/59 69.3 05/01 0826 37.5 90 18 83/53 63.1 94 Room air 05/01 0318 37.3 86 12 94/58 69.8 97 04/30 2339 37.1 81 12 97/56 70.1 97 04/30 2054 36.9 79 14 96/59 71.2 100 04/30 1959 36.5 84 18 107/69 81.9 96 04/30 1621 36.7 85 18 104/65 78.1 98 Room air 04/30 1535 98 21 Patient Weight Weight (lb): 217Weight (oz): 2.49Weight (kg): 98.500 Medications:Active Meds + DC'd Last 24 HrsRegadenoson 0.4 MG .STK-MED ONE IV (DC) Technetium TC99M Sestamibi 30.4 mCi .STK-MED ONE IV (DC) Technetium TC99M Sestamibi 13 mCi .STK-MED ONE IV (DC) Diphenhydramine HCl 50 MG BEDTIME PRN PRN PO Undefined Medication 1 APPLIC Q6H PRN PRN TOPICAL Acetaminophen 650 MG Q6H PRN PRN PO Vancomycin HCl 1,500 MG Q12H IV Sodium Chloride 500 MLFurosemide 40 MG DAILY PO Spironolactone 12.5 MG DAILY PO Miscellaneous Information 1 EACH ASDIR IV (CKD) Lactulose 30 ML TID PO (CKD) Pantoprazole 40 MG BID IV Thiamine HCl 100 MG Q24H IV Sodium Chloride 100 MLFurosemide 20 MG BLOOD-DOSE AFTER IV (DC) Mupirocin 1 APPLIC BID NASAL Calcium Gluconate 1,000 MG ASDIR PRN IV Sodium Chloride 100 MLMagnesium Sulfate 50 ML ASDIR PRN IV Magnesium [...] Phos/Sodium Phos 1 PKT ASDIR PRN PO (CKD) Potassium Phosphate 15 MM ASDIR PRN IV (CKD) Sodium Chloride 250 MLPotassium Phosphate 30 MM ASDIR PRN IV (CKD) Sodium Chloride 500 MLCeftriaxone Sodium 1 GM BEDTIME IV Sterile Water 10 MLAlbuterol Sulfate 2.5 MG RTQ6H PRN PRN INH Dextrose/Water 25 ML ASDIR PRN IV Glucagon 1 MG ASDIR PRN IM Glucose Polymer 15 GM ASDIR PRN PO Physical ExamGeneral appearance: alert, awake, oriented, no acute distressENT: moist mucosal membranesNeck: supple/no meningismusCardiovascular: regular rate rhythmRespiratory: decreased breath soundsAbdomen: ascites, fluid wave c/w ascites, non-tender, softExtremities: moves allPsychiatry: normal affect ResultsFindings/Data:Laboratory Tests 05/01 0235 Chemistry Sodium (133 - 144 mmol/L) 136.0 [...] 1 NORMAL <10 MG Laboratory Tests 05/01 0235 Hematology WBC (4.1 - 12.1 K/mm3) 9.5 [...] (Auto) (14.1 - 45.4 %) 4.0 L [place] % (Auto) (2.5 - 11.7 %) 10.5 Eos % (Auto) (0.0 - 6.2 %) 3.6 Baso % (Auto) (0.0 - 2.1 %) 0.6 Gran # (2.0 - 13.7 k/mm3) 7.31 Lymph # (Auto) (0.6 - 3.8 K/mm3) 0.38 L [place] # (Auto) (0.11 - 0.59 K/mm3) 1.00 H Eos # (Auto) (0.0 - 0.4 K/mm3) 0.34 Baso # (Auto) (0.0 - 0.1 K/mm3) 0.06 Immature Gran % (0.0 - 2.0 %) 4.6 H Nucleated RBC % (0.0 - 1.0 /100WBC%) 0.0 Nucleated RBCs # (0.0 - 0.05 K/mm3) 0.00 Results: labs reviewed, vital signs stable, current med profile rev'd Diagnosis, Assessment Plan Free Text DxA P NotesFree Text DxA P Notes:1. Septic shock on presentation with lactic acid more than 6. Resolvedblood cx +ve for GPC in 1/2 On vancFollow culture resultsIf am blood Cx negative this am then possibly contaminated specimen 2. Upper gastrointestinal bleed . ContinueProtonix. s/p EGD HH stable 3. Severe acute blood loss anemia. will monitor and keep hb above 7, HH stable 4. Severe ascites. Status post paracentesis 10 L of fluid removedWe will start patient on Lasix and small dose of Aldactone if blood pressure allows, BP on the lower side.Pt w distended abdomen.re consult IR for repeat paracentesis5. Increase in troponin, possibly demand ischemia. cardio following. Await stress test result6. Hepatic encephalopathy improved with the lactulose7. We will do deep venous thrombosis and gastrointestinal prophylaxes.8. Will advance diet increase activityDisposition if hemoglobin stable and repeat blood Cx negative from am will anticipate discharging her home tomorrowAwait IR for repeat paracentesisDw pt an RN at 1339 RPT #:[id number] OF REPORTPRProgress [id number]:30:00B.[id number] for patient [id number]:39:44 2019-04-30 [id number]:17:00 HCACR 15:17:00 [facility] ([facility])Hospitalist Progress NoteREPORT#:[id number] REPORT STATUS: SignedDATE:04/30/19 TIME: 1516 PATIENT: AMAURI CAPELLAN UNIT #: [id number]#: [id number] [facility] [birth year] AGE: 48 SEX: F ATTEND: May Dewitt AUTHOR: May Dewitt MD * ALL edits or amendments must be made on the electronic/computer document * SubjectiveChief Complaint:pt seen in roomblood Cx 1/2 +ve for GPCstarted on vanc Objective GeneralVS/I O:Vital Signs: Date Time Temp Pulse Resp B/P B/P Pulse O2 O2 Flow FiO2 Mean Ox Delivery Rate 04/30 2339 [...] 104/67 79.5 97 Patient Weight Weight (lb): 217Weight (oz): 2.49Weight (kg): 98.500 Medications:Active Meds + DC'd Last 24 HrsDiphenhydramine HCl 50 MG BEDTIME PRN PRN PO Undefined Medication 1 APPLIC Q6H PRN PRN TOPICAL Acetaminophen 650 MG Q6H PRN PRN PO Vancomycin HCl 1,500 MG Q12H IV Sodium Chloride 500 MLFurosemide 40 MG DAILY PO Spironolactone 12.5 MG DAILY PO Miscellaneous Information 1 EACH ASDIR IV (CKD) Lactulose 30 ML TID PO (CKD) Pantoprazole 40 MG BID IV Thiamine HCl 100 MG Q24H IV Sodium Chloride 100 MLFurosemide 20 MG BLOOD-DOSE AFTER IV (CKD) Mupirocin 1 APPLIC BID NASAL Calcium Gluconate 1,000 MG ASDIR PRN IV Sodium Chloride 100 MLMagnesium Sulfate 50 ML ASDIR PRN IV Magnesium [...] Phos/Sodium Phos 1 PKT ASDIR PRN PO (CKD) Potassium Phosphate 15 MM ASDIR PRN IV (CKD) Sodium Chloride 250 MLPotassium Phosphate 30 MM ASDIR PRN IV (CKD) Sodium Chloride 500 MLCeftriaxone Sodium 1 GM BEDTIME IV Sterile Water 10 MLAlbuterol Sulfate 2.5 MG RTQ6H PRN PRN INH Dextrose/Water 25 ML ASDIR PRN IV Glucagon 1 MG ASDIR PRN IM Glucose Polymer 15 GM ASDIR PRN PO Physical ExamGeneral appearance: alert, awake, orientedENT: moist mucosal membranesNeck: supple/no meningismusCardiovascular: regular rate rhythmRespiratory: decreased breath soundsAbdomen: ascites, fluid wave c/w ascites, non-tender, softExtremities: moves all ResultsFindings/Data:Laboratory Tests 04/30 04/30 0748 0329 Chemistry Sodium [...] L Specimen Appearance (1 NORMAL Index/DL) 1 NORMAL <2 MG Specimen Hemolysis (1 NORMAL Index/DL) [...] (Auto) (14.1 - 45.4 %) 3.9 L [place] % (Auto) (2.5 - 11.7 %) 9.4 Eos % (Auto) (0.0 - 6.2 %) 1.8 Baso % (Auto) (0.0 - 2.1 %) 0.5 Gran # (2.0 - 13.7 k/mm3) 8.56 Lymph # (Auto) (0.6 - 3.8 K/mm3) 0.42 L [place] # (Auto) (0.11 - 0.59 K/mm3) 1.01 H Eos # (Auto) (0.0 - 0.4 K/mm3) 0.19 Baso # (Auto) (0.0 - 0.1 K/mm3) 0.05 Add Manual Diff (CRITERIA DIFF/SCN) MAN DIFF INDICATED Total Counted (100 #CELLS) 100 Immature Gran [...] Diagnosis, Assessment Plan Free Text DxA P NotesFree Text DxA P Notes:1. Septic shock on presentation with lactic acid more than 6. We will continue sepsis protocol. Continue antibiotics. blood cx +ve for GPC in 1/2 On vancRepeated blood cX this amIf am blood Cx negative this am then possibly contaminated specimen 2. Upper gastrointestinal bleed . ContinueProtonix. s/p EGD DC octreotide 3. Severe acute blood loss anemia. will monitor and keep hb above 7 4. Severe ascites. Status post paracentesis 10 L of fluid removedWe will start patient on Lasix and small dose of Aldactone if blood pressure allows5. Increase in troponin, possibly demand ischemia. cardio following.6. Hepatic encephalopathy improved with the lactulose7. We will do deep venous thrombosis and gastrointestinal prophylaxes.8. Will advance diet increase activityDisposition if hemoglobin stable and repeat blood Cx negative from am will anticipate discharging her home tomorrow at 0200 RPT #:[id number] OF REPORTPRProgress [id number]:17:00B.[id number] for patient [id number]:00:50 2019-04-30 [id number]:28:00 HCACR 09:28:00 [facility] Prog.Note-VancomycinREPORT#:[id number] REPORT STATUS: SignedDATE:04/30/19 TIME: 927 PATIENT: AMAURI CAPELLAN UNIT #: [id number]#: [id number] [facility]: [birth year] AGE: 48 SEX: F ATTEND: Jenny Cruz [facility] AUTHOR: Margie Sargent [facility] * ALL edits or amendments must be made on the electronic/computer document * Vancomycin VancomycinMedication Therapy:Vancomycin Goal trough: 15-20 mcg/mlIndication for treatment:SEPSISCurrent therapy:VANCOMYCIN 1500MG IVPB E72GXqs of therapy:1Weight: Actual weight (kg): 99Labs:Laboratory Test : 04/30 04/29 0329 1125 Chemistry BUN (7 - 18 MG/DL) 38 H Creatinine (0.55 - 1.30 MG/DL) 1.09 Hematology WBC (4.1 - 12.1 K/mm3) 10.8 10.6 Microbiology:04/30 841 BLOOD: Blood Culture - ORD04/30 841 BLOOD: Blood Culture - ORD04/28 1418 PERITONEAL: Body Fluid Culture - RES04/28 1418 PERITONEAL: Gram Stain - RES04/27 2358 NASAL: MSSA Surveillance Screen - RES04/27 2358 NASAL: MRSA Screen - 2199 BLOOD: Blood Culture - RES GRAM POSITIVE COCCI04/27 2200 BLOOD: Blood Culture - RES04/27 2200 BLOOD: Blood Culture - RES GRAM POSITIVE COCCI Treatment plan: initiation of therapyFollow up: Lab:TROUGH DUE 05-01-19 @ 2100 at 0929 RPT #:[id number] OF REPORTPRProgress [id number]:28:00B.[id number] for patient qv[id number]:30:02 2019-04-30 [id number]:22:00 HCACR 09:22:00 [facility] ([facility])Gastroenterology Progress NoteREPORT#:[id number] REPORT STATUS: SignedDATE:04/30/19 TIME: 921 PATIENT: AMAURI CAPELLAN UNIT #: [id number]#: [id number] [facility]: [birth year] AGE: 48 SEX: F ATTEND: Jenny Cruz [facility] AUTHOR: Morelia Weston SERVER SOFTWARE ENGINEER * ALL edits or amendments must be made on the electronic/computer document * SubjectiveComments:Pt reports mild nausea but improved and no vomiting. Denies abd pain or cramping. Stools are loose due to lactulose but no bloody or black appearance. Objective Physical ExamVS/I O:Last Documented: Result Date Time Pulse Ox 93 04/30 749 B/P 94/56 04/30 749 B/P Mean 68.6 04/30 07 O2 Delivery Room air 04/30 07 Temp 98.4 04/30 07 Pulse 83 04/30 0749 Resp 18 04/30 0749 O2 Flow Rate 2.013109 04/27 2110 24 hour I O ending at 0700: 04/30 0700 04/29 1900 Intake Total Output Total Balance Number 1 Bowel Movements Number Voids 5 Patient 98.5 kg Weight Weight Bed scale Measurement Method Patient Weight Weight (lb): 217Weight (oz): 2.49Weight (kg): 98.500 HEENT: anicteric, moist mucosal membranesAbdomen: Abd distended with ascites fluid noted, large drsg intact to lower abd,active bowel sounds. soft, non-tender.Extremities: no clubbing, no cyanosis, no edemaNeuro/GANTRY CRANE OPERATOR: alert, oriented X 3Skin: dry, intact, normal color ResultsFindings/Data:Laboratory Tests 04/30/19328:[Embedded Image Not Available] 04/29/192234:[Embedded Image Not Available] 04/29/19 1125:[Embedded Image Not Available]Laboratory Tests 04/30 329 Chemistry Sodium (133 - [...] L Specimen Appearance (1 NORMAL Index/DL) 1 NORMAL <2 MG Specimen Hemolysis (1 NORMAL Index/DL) [...] (Auto) (14.1 - 45.4 %) 3.9 L [place] % (Auto) (2.5 - 11.7 %) 9.4 Eos % (Auto) (0.0 - 6.2 %) 1.8 Baso % (Auto) (0.0 - 2.1 %) 0.5 Gran # (2.0 - 13.7 k/mm3) 8.56 Lymph # (Auto) (0.6 - 3.8 K/mm3) 0.42 L [place] # (Auto) (0.11 - 0.59 K/mm3) 1.01 H Eos # (Auto) (0.0 - 0.4 K/mm3) 0.19 Baso # (Auto) (0.0 - 0.1 K/mm3) 0.05 Add Manual Diff (CRITERIA DIFF/SCN) MAN DIFF INDICATED Total Counted (100 #CELLS) 100 Immature Gran [...] (Auto) (14.1 - 45.4 %) 4.0 L [place] % (Auto) (2.5 - 11.7 %) 9.5 Eos % (Auto) (0.0 - 6.2 %) 0.3 Baso % (Auto) (0.0 - 2.1 %) 0.1 Gran # (2.0 - 13.7 k/mm3) 8.57 Lymph # (Auto) (0.6 - 3.8 K/mm3) 0.42 L [place] # (Auto) (0.11 - 0.59 K/mm3) 1.01 H Eos # (Auto) (0.0 - 0.4 K/mm3) 0.03 Baso # (Auto) (0.0 - 0.1 K/mm3) 0.01 Add Manual Diff (CRITERIA DIFF/SCN) MAN DIFF INDICATED Total Counted (100 #CELLS) 100 Immature Gran [...] 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 Continue PPI. S/p paracetesis paracentesis due to ascites-- will need diuretics on discharge if BP able to holdFollow H/H, transfuse to maintain hgb >7.0 and/or if hemodynamically unstable orsigns of occult GIB-stable.Lactulose TID for encephalopathy, goal 3-4 soft stools daily. Recommend albumin if low BPs-spironolactone/furosemide if b/p stable and renal fxn stableCheck for SBP with paracentesis with 10 liters removed, neg cultures. Repeat para prn symptomatic ascitesThrombocytopenia-stable. at 0925 RPT #:[id number] OF REPORTPRProgress [id number]:22:00B.[id number] for patient [id number]:25:40 2019-04-30 [id number]:22:00 HCACR 09:22:00 [facility] Progress NoteREPORT#:[id number] REPORT STATUS: SignedDATE:04/30/19 TIME: 921 PATIENT: AMAURI CAPELLAN UNIT #: [id number]#: [id number] [facility] [birth year] AGE: 48 SEX: F ATTEND: May Dewitt [facility] AUTHOR: Morelia Weston NP * ALL edits or amendments must be made on the electronic/computer document * SubjectiveComments:Pt reports mild nausea but improved and no vomiting. Denies abd pain or cramping. Stools are loose due to lactulose but no bloody or black appearance. Objective Physical ExamVS/I O:Last Documented: Result Date Time Pulse Ox 93 04/30 749 B/P 94/56 04/30 07 B/P Mean 68.6 04/30 07 O2 Delivery Room air 04/30 749 Temp 98.4 04/30 749 Pulse 83 04/30 0749 Resp 18 04/30 749 O2 Flow Rate 2.563217 04/27 2110 24 hour I O ending at 0700: 04/30 0700 04/29 1900 Intake Total Output Total Balance Number 1 Bowel Movements Number Voids 5 Patient 98.5 kg Weight Weight Bed scale Measurement Method Patient Weight Weight (lb): 217Weight (oz): 2.49Weight (kg): 98.500 HEENT: anicteric, moist mucosal membranesAbdomen: Abd distended with ascites fluid noted, large drsg intact to lower abd,active bowel sounds. soft, non-tender.Extremities: no clubbing, no cyanosis, no edemaNeuro/GANTRY CRANE OPERATOR: alert, oriented X 3Skin: dry, intact, normal color ResultsFindings/Data:Laboratory Tests 04/30/19328:[Embedded Image Not Available] 04/29/192234:[Embedded Image Not Available] 04/29/19 1125:[Embedded Image Not Available]Laboratory Tests 04/30 329 Chemistry Sodium (133 - [...] L Specimen Appearance (1 NORMAL Index/DL) 1 NORMAL <2 MG Specimen Hemolysis (1 NORMAL Index/DL) [...] (Auto) (14.1 - 45.4 %) 3.9 L [place] % (Auto) (2.5 - 11.7 %) 9.4 Eos % (Auto) (0.0 - 6.2 %) 1.8 Baso % (Auto) (0.0 - 2.1 %) 0.5 Gran # (2.0 - 13.7 k/mm3) 8.56 Lymph # (Auto) (0.6 - 3.8 K/mm3) 0.42 L [place] # (Auto) (0.11 - 0.59 K/mm3) 1.01 H Eos # (Auto) (0.0 - 0.4 K/mm3) 0.19 Baso # (Auto) (0.0 - 0.1 K/mm3) 0.05 Add Manual Diff (CRITERIA DIFF/SCN) MAN DIFF INDICATED Total Counted (100 #CELLS) 100 Immature Gran [...] (Auto) (14.1 - 45.4 %) 4.0 L [place] % (Auto) (2.5 - 11.7 %) 9.5 Eos % (Auto) (0.0 - 6.2 %) 0.3 Baso % (Auto) (0.0 - 2.1 %) 0.1 Gran # (2.0 - 13.7 k/mm3) 8.57 Lymph # (Auto) (0.6 - 3.8 K/mm3) 0.42 L [place] # (Auto) (0.11 - 0.59 K/mm3) 1.01 H Eos # (Auto) (0.0 - 0.4 K/mm3) 0.03 Baso # (Auto) (0.0 - 0.1 K/mm3) 0.01 Add Manual Diff (CRITERIA DIFF/SCN) MAN DIFF INDICATED Total Counted (100 #CELLS) 100 Immature Gran [...] 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 Continue PPI. S/p paracetesis paracentesis due to ascites-- will need diuretics on discharge if BP able to holdFollow H/H, transfuse to maintain hgb >7.0 and/or if hemodynamically unstable orsigns of occult GIB-stable.Lactulose TID for encephalopathy, goal 3-4 soft stools daily. Recommend albumin if low BPs-spironolactone/furosemide if b/p stable and renal fxn stableCheck for SBP with paracentesis with 10 liters removed, neg cultures. Repeat para prn symptomatic ascitesThrombocytopenia-stable. at 0925 at 1141 RPT #:[id number] OF REPORTPRProgress [id number]:22:00B.[id number] for patient [id number]:41:31 2019-04-29 [id number]:37:00 HCACR 15:37:00 [facility] ([facility])Cardiology Progress NoteREPORT#:[id number] REPORT STATUS: SignedDATE:04/29/19 TIME: 153 PATIENT: AMAURI CAPELLAN UNIT #: [id number]#: [id number] [facility] AGE: 48 SEX: F ATTEND: Jenny Cruz [facility] AUTHOR: Juani Florez SERVER SOFTWARE ENGINEER * ALL edits or amendments must be made on the electronic/computer document * SubjectiveComments:feeling betterno CPshe reports epeisode of CP yesterday after given med just prior to her EGDno recurrent pain Objective GeneralVS/I O:24 hour I O ending at 0700: 04/30 0700 04/29 1900 Intake Total Output Total Balance Number 1 Bowel Movements Number Voids 5 Patient 98.5 kg Weight Weight Bed scale Measurement Method Vital Signs: Date Time Temp Pulse Resp B/P B/P Pulse O2 O2 Flow FiO2 Mean Ox Delivery Rate 04/30 0749 [...] 90/55 70 97 04/29 1030 67 14 100/ 72 97 Patient Weight Weight (lb): 217Weight (oz): 2.49Weight (kg): 98.500 Medications:Active Meds + DC'd Last 24 HrsVancomycin HCl 1,500 MG Q12H IV Sodium Chloride 500 MLFurosemide 40 MG DAILY PO Spironolactone 12.5 MG DAILY PO Miscellaneous Information 1 EACH ASDIR IV (CKD) Lactulose 30 ML TID PO (CKD) Pantoprazole 40 MG BID IV Insulin Human Regular 100 UNIT ASDIR IV (CAN) Sodium Chloride 100 MLPotassium Chloride 40 MEQ ONCE ONE PO (DC) Thiamine HCl 100 MG Q24H IV Sodium Chloride 100 MLFurosemide 20 MG BLOOD-DOSE AFTER IV (CKD) Sodium Chloride 250 ML ASDIR IV (DC) Mupirocin 1 APPLIC BID NASAL Calcium Gluconate 1,000 MG ASDIR PRN IV Sodium Chloride 100 MLMagnesium Sulfate 50 ML ASDIR PRN IV Magnesium [...] Phos/Sodium Phos 1 PKT ASDIR PRN PO (CKD) Potassium Phosphate 15 MM ASDIR PRN IV (CKD) Sodium Chloride 250 MLPotassium Phosphate 30 MM ASDIR PRN IV (CKD) Sodium Chloride 500 MLCeftriaxone Sodium 1 GM BEDTIME IV Sterile Water 10 MLAlbuterol Sulfate 2.5 MG RTQ6H PRN PRN INH Dextrose/Water 25 ML ASDIR PRN IV Glucagon 1 MG ASDIR PRN IM Glucose Polymer 15 GM ASDIR PRN PO Norepinephrine/Dextrose 250 ML ASDIR IV (DC) Octreotide Acetate 500 MCG ASDIR IV (DC) Sodium Chloride 249 MLPantoprazole Sodium 80 MG ASDIR IV (DC) Sodium Chloride 100 ML Physical ExamGeneral appearance: alert, awake, oriented, no acute distress, pleasantHead/Eyes: atraumatic, EOMINeck: no JVDCardiovascular: CV assessment: regular rate and rhythm, normal heart soundsRespiratory: decreased breath sounds, no distressAbdomen: softGenitourinary: no foleyLower extremity: LE assessment: no edemaMusculoskeletal: MAENeuro/GANTRY CRANE OPERATOR: alert, oriented X 3Skin: dry (pale)Psychiatry: normal affect ResultsFindings/Data:Laboratory Tests 04/30 329 Chemistry Sodium (133 - [...] L Specimen Appearance (1 NORMAL Index/DL) 1 NORMAL <2 MG Specimen Hemolysis (1 NORMAL Index/DL) [...] (Auto) (14.1 - 45.4 %) 3.9 L [place] % (Auto) (2.5 - 11.7 %) 9.4 Eos % (Auto) (0.0 - 6.2 %) 1.8 Baso % (Auto) (0.0 - 2.1 %) 0.5 Gran # (2.0 - 13.7 k/mm3) 8.56 Lymph # (Auto) (0.6 - 3.8 K/mm3) 0.42 L [place] # (Auto) (0.11 - 0.59 K/mm3) 1.01 H Eos # (Auto) (0.0 - 0.4 K/mm3) 0.19 Baso # (Auto) (0.0 - 0.1 K/mm3) 0.05 Add Manual Diff (CRITERIA DIFF/SCN) MAN DIFF INDICATED Total Counted (100 #CELLS) 100 Immature Gran [...] (Auto) (14.1 - 45.4 %) 4.0 L [place] % (Auto) (2.5 - 11.7 %) 9.5 Eos % (Auto) (0.0 - 6.2 %) 0.3 Baso % (Auto) (0.0 - 2.1 %) 0.1 Gran # (2.0 - 13.7 k/mm3) 8.57 Lymph # (Auto) (0.6 - 3.8 K/mm3) 0.42 L [place] # (Auto) (0.11 - 0.59 K/mm3) 1.01 H Eos # (Auto) (0.0 - 0.4 K/mm3) 0.03 Baso # (Auto) (0.0 - 0.1 K/mm3) 0.01 Add Manual Diff (CRITERIA DIFF/SCN) MAN DIFF INDICATED Total Counted (100 #CELLS) 100 Immature Gran [...] Diagnosis, Assessment Plan Free Text DxA P NotesFree Text DxA P Notes:1. Preprocedure evaluation, cardiac clearancePatient with history of hypertension and cirrhosisShe denies history of diabetes, hyperlipidemia, stroke, CHF, lung disease or kidney diseaseMinimal troponin elevation likely demand ischemia in the setting of severe anemiaPatient of moderate risk for perioperative cardiovascular events. 2. GI bleed/Severe anemiaWork-up pending 3. HTNBPs on the low side. Continue to monitor.Patient states she always has low BPs. 4. AscitesStatus post paracentesis 5. Elevated lactic acid 6. Elevated troponinLikely demand ischemia in the setting of severe anemiano hx CAD, no CPObtain echo to evaluate LVEF, assess for RWMA and valve diseaseFurther ischemic eval when cleared from GI standpoint at 1017 RPT #:[id number] OF REPORTPRProgress [id number]:37:00B.[id number] for patient [id number]:17:46 2019-04-29 [id number]:56:00 HCACR 14:56:00 [facility] Progress NoteREPORT#:[id number] REPORT STATUS: SignedDATE:04/29/19 TIME: 1455 PATIENT: AMAURI CAPELLAN UNIT #: [id number]#: [id number] [address]VT[address] AGE: 48 SEX: F ATTEND: Jenny Cruz [facility] AUTHOR: Morelia Weston SERVER SOFTWARE ENGINEER * ALL edits or amendments must be made on the electronic/computer document * SubjectiveComments:Pt awake, alert, tolerating a diet. Reports nausea but denies vomiting. Large stool due to lactulose but no melena or hematochezia. Objective Physical ExamVS/I O:Last Documented: Result Date Time Pulse Ox 98 04/29 1422 Pulse 73 04/29 1422 Resp 24 04/29 1422 B/P 104/62 04/29 1400 B/P Mean 78 04/29 1400 O2 Delivery Room air 04/29 1004 Temp 98.5 04/29 0737 O2 Flow Rate 2.270217 04/27 2110 24 hour I O ending at 0700: 04/29 0700 04/28 1900 Intake Total 3450.00 1191.80 Output Total 1350 375 Balance 2100.00 816.80 Intake, Blood 250 Product Intake, IV 320.00 571.80 Intake, Oral 1380 120 Intake, 1750 250 Packed Cells Number 1 Bowel Movements Number Voids 1 Output, Urine 1350 375 Patient Weight Weight (lb): 217Weight (oz): 2.49Weight (kg): 98.500 Medications:Active Meds + DC'd Last 24 HrsFurosemide 40 MG DAILY PO Spironolactone 12.5 MG DAILY PO Potassium Chloride 40 MEQ ONCE ONE PO (DC) Albumin Human 200 ML ONCE ONE IV (DC) Thiamine HCl 100 MG Q24H IV Sodium Chloride 100 MLFurosemide 20 MG BLOOD-DOSE AFTER IV (CKD) Sodium Chloride 250 ML ASDIR IV (DC) Mupirocin 1 APPLIC BID NASAL Calcium Gluconate 1,000 MG ASDIR PRN IV Sodium Chloride 100 MLMagnesium Sulfate 50 ML ASDIR PRN IV Magnesium [...] Phos/Sodium Phos 1 PKT ASDIR PRN PO (CKD) Potassium Phosphate 15 MM ASDIR PRN IV (CKD) Sodium Chloride 250 MLPotassium Phosphate 30 MM ASDIR PRN IV (CKD) Sodium Chloride 500 MLSodium Chloride 250 ML ASDIR IV (DC) Ceftriaxone Sodium 1 GM BEDTIME IV Sterile Water 10 MLAlbuterol Sulfate 2.5 MG RTQ6H PRN PRN INH Dextrose/Water 25 ML ASDIR PRN IV Glucagon 1 MG ASDIR PRN IM Glucose Polymer 15 GM ASDIR PRN PO Norepinephrine/Dextrose 250 ML ASDIR IV (DC) Octreotide Acetate 500 MCG ASDIR IV (DC) Sodium Chloride 249 MLPantoprazole Sodium 80 MG ASDIR IV (CKD) Sodium Chloride 100 ML General appearance: chronically ill appearing, alert, awake, orientedHEENT: anicteric, moist mucosal membranesAbdomen: Abd distended with ascites fluid noted, large drsg intact to lower abd,active bowel sounds. soft, non-tender.Extremities: no clubbing, no cyanosis, no edemaNeuro/GANTRY CRANE OPERATOR: alert, oriented X 3Skin: dry, intact, normal color ResultsFindings/Data:Laboratory Tests 04/29/19 1125:[Embedded Image Not Available] 04/29/19 033:[Embedded Image Not Available] 04/28/19 1815:[Embedded Image Not Available]Laboratory Tests 04/29 330 Chemistry Sodium (133 - [...] (Auto) (14.1 - 45.4 %) 4.0 L [place] % (Auto) (2.5 - 11.7 %) 9.5 Eos % (Auto) (0.0 - 6.2 %) 0.3 Baso % (Auto) (0.0 - 2.1 %) 0.1 Gran # (2.0 - 13.7 k/mm3) 8.57 Lymph # (Auto) (0.6 - 3.8 K/mm3) 0.42 L [place] # (Auto) (0.11 - 0.59 K/mm3) 1.01 H Eos # (Auto) (0.0 - 0.4 K/mm3) 0.03 Baso # (Auto) (0.0 - 0.1 K/mm3) 0.01 Add Manual Diff (CRITERIA DIFF/SCN) MAN DIFF INDICATED Total Counted (100 #CELLS) 100 Immature Gran [...] (Auto) (14.1 - 45.4 %) 3.2 L [place] % (Auto) (2.5 - 11.7 %) 11.3 Eos % (Auto) (0.0 - 6.2 %) 0.0 Baso % (Auto) (0.0 - 2.1 %) 0.3 Gran # (2.0 - 13.7 k/mm3) 10.24 Lymph # (Auto) (0.6 - 3.8 K/mm3) 0.41 L [place] # (Auto) (0.11 - 0.59 K/mm3) 1.46 H Eos # (Auto) (0.0 - 0.4 K/mm3) 0.00 Baso # (Auto) (0.0 - 0.1 K/mm3) 0.04 Add Manual Diff (CRITERIA DIFF/SCN) MAN DIFF INDICATED Total Counted (100 #CELLS) 100 Immature Gran [...] Plt Morphology Comment (NORMAL PLTS ON SCAN) LARGE FEW Polychromasia (NONE ON SCAN) SLIGHT Anisocytosis (NONE ON SCAN) SLIGHT Ovalocytes (NONE ON SCAN) FEW Raysal Cells (NONE ON SCAN) FEW 04/28 1815 [...] (Auto) (14.1 - 45.4 %) 2.6 L [place] % (Auto) (2.5 - 11.7 %) 11.2 Eos % (Auto) (0.0 - 6.2 %) 0.0 Baso % (Auto) (0.0 - 2.1 %) 0.0 Gran # (2.0 - 13.7 k/mm3) 6.21 Lymph # (Auto) (0.6 - 3.8 K/mm3) 0.20 L [place] # (Auto) (0.11 - 0.59 K/mm3) 0.86 H Eos # (Auto) (0.0 - 0.4 K/mm3) 0.00 Baso # (Auto) (0.0 - 0.1 K/mm3) 0.00 Add Manual Diff (CRITERIA DIFF/SCN) MAN DIFF INDICATED Total Counted (100 #CELLS) 100 Immature Gran [...] Plt Morphology Comment (NORMAL PLTS ON SCAN) LARGE FEW Polychromasia (NONE ON SCAN) SLIGHT Anisocytosis (NONE ON SCAN) SLIGHT Ovalocytes (NONE ON SCAN) FEW Ethan Cells (NONE ON SCAN) FEW Diagnosis, Assessment PlanFree Text A P:Patient with cirrhosis non compliant with hx of esophageal varices who presents with anemia and hematemesis to an OSH - s/p EGD with portal hypertensive gastropathy, duodenitis with hemorrhage. Continue PPI, octreotide has been dc'd. S/p paracetesis paracentesis due to ascites-- will need diuretics on discharge if BP able to holdFollow H/H, transfuse to maintain hgb >7.0 and/or if hemodynamically unstable orsigns of occult GIB. If recurrent bleeding consider bleeding scan.Lactulose TID for encephalopathy, goal 3-4 soft stools daily. Recommend albumin if low BPs-spironolactone/furosemide if b/p stable and renal fxn stableCheck for SBP with paracentesis with 10 liters removed, gram stain pending but fluid cultures so far negative. at 1504 RPT #:[id number] OF REPORTPRProgress [id number]:56:[id number] for patient [id number]:05:11 2019-04-29 [id number]:56:00 [facility] 14:56:00 [facility] Progress NoteREPORT#:[id number] REPORT STATUS: SignedDATE:04/29/19 TIME: 1455 PATIENT: AMAURI CAPELLAN UNIT #: [id number]#: [id number] [facility] AGE: 48 SEX: F ATTEND: May Dewitt [facility] AUTHOR: Morelia Weston SERVER SOFTWARE ENGINEER * ALL edits or amendments must be made on the electronic/computer document * SubjectiveComments:Pt awake, alert, tolerating a diet. Reports nausea but denies vomiting. Large stool due to lactulose but no melena or hematochezia. Objective Physical ExamVS/I O:Last Documented: Result Date Time Pulse Ox 98 04/29 1422 Pulse 73 04/29 1422 Resp 24 04/29 1422 B/P 104/62 04/29 1400 B/P Mean 78 04/29 1400 O2 Delivery Room air 04/29 1004 Temp 98.5 04/29 0737 O2 Flow Rate 2.060533 04/27 2110 24 hour I O ending at 0700: 04/29 0700 04/28 1900 Intake Total 3450.00 1191.80 Output Total 1350 375 Balance 2100.00 816.80 Intake, Blood 250 Product Intake, IV 320.00 571.80 Intake, Oral 1380 120 Intake, 1750 250 Packed Cells Number 1 Bowel Movements Number Voids 1 Output, Urine 1350 375 Patient Weight Weight (lb): 217Weight (oz): 2.49Weight (kg): 98.500 Medications:Active Meds + DC'd Last 24 HrsFurosemide 40 MG DAILY PO Spironolactone 12.5 MG DAILY PO Potassium Chloride 40 MEQ ONCE ONE PO (DC) Albumin Human 200 ML ONCE ONE IV (DC) Thiamine HCl 100 MG Q24H IV Sodium Chloride 100 MLFurosemide 20 MG BLOOD-DOSE AFTER IV (CKD) Sodium Chloride 250 ML ASDIR IV (DC) Mupirocin 1 APPLIC BID NASAL Calcium Gluconate 1,000 MG ASDIR PRN IV Sodium Chloride 100 MLMagnesium Sulfate 50 ML ASDIR PRN IV Magnesium [...] Phos/Sodium Phos 1 PKT ASDIR PRN PO (CKD) Potassium Phosphate 15 MM ASDIR PRN IV (CKD) Sodium Chloride 250 MLPotassium Phosphate 30 MM ASDIR PRN IV (CKD) Sodium Chloride 500 MLSodium Chloride 250 ML ASDIR IV (DC) Ceftriaxone Sodium 1 GM BEDTIME IV Sterile Water 10 MLAlbuterol Sulfate 2.5 MG RTQ6H PRN PRN INH Dextrose/Water 25 ML ASDIR PRN IV Glucagon 1 MG ASDIR PRN IM Glucose Polymer 15 GM ASDIR PRN PO Norepinephrine/Dextrose 250 ML ASDIR IV (DC) Octreotide Acetate 500 MCG ASDIR IV (DC) Sodium Chloride 249 MLPantoprazole Sodium 80 MG ASDIR IV (CKD) Sodium Chloride 100 ML General appearance: chronically ill appearing, alert, awake, orientedHEENT: anicteric, moist mucosal membranesAbdomen: Abd distended with ascites fluid noted, large drsg intact to lower abd,active bowel sounds. soft, non-tender.Extremities: no clubbing, no cyanosis, no edemaNeuro/GANTRY CRANE OPERATOR: alert, oriented X 3Skin: dry, intact, normal color ResultsFindings/Data:Laboratory Tests 04/29/19 1125:[Embedded Image Not Available] 04/29/19 0330:[Embedded Image Not Available] 04/28/19 1815:[Embedded Image Not Available]Laboratory Tests 04/29 330 Chemistry Sodium (133 - [...] (Auto) (14.1 - 45.4 %) 4.0 L [place] % (Auto) (2.5 - 11.7 %) 9.5 Eos % (Auto) (0.0 - 6.2 %) 0.3 Baso % (Auto) (0.0 - 2.1 %) 0.1 Gran # (2.0 - 13.7 k/mm3) 8.57 Lymph # (Auto) (0.6 - 3.8 K/mm3) 0.42 L [place] # (Auto) (0.11 - 0.59 K/mm3) 1.01 H Eos # (Auto) (0.0 - 0.4 K/mm3) 0.03 Baso # (Auto) (0.0 - 0.1 K/mm3) 0.01 Add Manual Diff (CRITERIA DIFF/SCN) MAN DIFF INDICATED Total Counted (100 #CELLS) 100 Immature Gran [...] (Auto) (14.1 - 45.4 %) 3.2 L [place] % (Auto) (2.5 - 11.7 %) 11.3 Eos % (Auto) (0.0 - 6.2 %) 0.0 Baso % (Auto) (0.0 - 2.1 %) 0.3 Gran # (2.0 - 13.7 k/mm3) 10.24 Lymph # (Auto) (0.6 - 3.8 K/mm3) 0.41 L [place] # (Auto) (0.11 - 0.59 K/mm3) 1.46 H Eos # (Auto) (0.0 - 0.4 K/mm3) 0.00 Baso # (Auto) (0.0 - 0.1 K/mm3) 0.04 Add Manual Diff (CRITERIA DIFF/SCN) MAN DIFF INDICATED Total Counted (100 #CELLS) 100 Immature Gran [...] Plt Morphology Comment (NORMAL PLTS ON SCAN) LARGE FEW Polychromasia (NONE ON SCAN) SLIGHT Anisocytosis (NONE ON SCAN) SLIGHT Ovalocytes (NONE ON SCAN) FEW Raysal Cells (NONE ON SCAN) FEW 04/28 1815 [...] (Auto) (14.1 - 45.4 %) 2.6 L [place] % (Auto) (2.5 - 11.7 %) 11.2 Eos % (Auto) (0.0 - 6.2 %) 0.0 Baso % (Auto) (0.0 - 2.1 %) 0.0 Gran # (2.0 - 13.7 k/mm3) 6.21 Lymph # (Auto) (0.6 - 3.8 K/mm3) 0.20 L [place] # (Auto) (0.11 - 0.59 K/mm3) 0.86 H Eos # (Auto) (0.0 - 0.4 K/mm3) 0.00 Baso # (Auto) (0.0 - 0.1 K/mm3) 0.00 Add Manual Diff (CRITERIA DIFF/SCN) MAN DIFF INDICATED Total Counted (100 #CELLS) 100 Immature Gran [...] Plt Morphology Comment (NORMAL PLTS ON SCAN) LARGE FEW Polychromasia (NONE ON SCAN) SLIGHT Anisocytosis (NONE ON SCAN) SLIGHT Ovalocytes (NONE ON SCAN) FEW Ethan Cells (NONE ON SCAN) FEW Diagnosis, Assessment PlanFree Text A P:Patient with cirrhosis non compliant with hx of esophageal varices who presents with anemia and hematemesis to an OSH - s/p EGD with portal hypertensive gastropathy, duodenitis with hemorrhage. Continue PPI, octreotide has been dc'd. S/p paracetesis paracentesis due to ascites-- will need diuretics on discharge if BP able to holdFollow H/H, transfuse to maintain hgb >7.0 and/or if hemodynamically unstable orsigns of occult GIB. If recurrent bleeding consider bleeding scan.Lactulose TID for encephalopathy, goal 3-4 soft stools daily. Recommend albumin if low BPs-spironolactone/furosemide if b/p stable and renal fxn stableCheck for SBP with paracentesis with 10 liters removed, gram stain pending but fluid cultures so far negative. at 1504 at 1142 RPT #:[id number] OF REPORTPRProgress [id number]:56:[id number] for patient [id number]:42:23 2019-04-29 [id number]:35:00 [facility] 14:35:00 [facility] Progress NoteREPORT#:[id number] REPORT STATUS: SignedDATE:04/29/19 TIME: 1435 PATIENT: AMAURI CAPELLAN UNIT #: [id number]#: [id number] [address] [birth year] AGE: 48 SEX: F ATTEND: Jenny Cruz [facility] AUTHOR: Vanessa Webb MD * ALL edits or amendments must be made on the electronic/computer document * Subjective Free Text Subj NotesFree Subj Notes:pt feeling better Hb 10 today Status post paracentesis 10 L of fluid was removed Objective GeneralVS/I O:Vital Signs: Date Time Temp Pulse Resp B/P B/P Pulse O2 O2 Flow FiO2 Mean Ox Delivery Rate 04/29 1422 73 24 98 04/29 1400 [...] 04/29 1030 67 14 100/55 72 97 04/29 1004 97 Room air 04/29 1000 67 19 97/56 71 97 09/25 0930 64 21 109/60 80 97 09/25 [...] 62 94 09/25 0047 96 Room air 09/25 0030 72 99/58 76 96 09/25 0015 69 19 97 09/25 0000 72 21 89/54 69 97 09/24 2330 70 24 105/57 76 98 09/24 2309 37.0 09/ 2300 71 27 97/54 73 96 09/ 2249 37.4 09 2245 67 22 97 09/ 2239 37.4 69 15 103/56 98 09/ 2230 68 103/56 76 98 09/24 2200 69 106/53 73 97 09/24 2145 66 23 98 09/24 2130 78 89/63 72 97 09/24 2125 36.9 09/24 2115 68 19 98 09/24 2100 69 114/57 80 98 09/ 2059 36.9 69 14 107/56 98 09/ 2047 36.8 71 14 107/56 98 09/24 2030 71 107/56 78 97 09/2014 69 26 95 09/24 1999 65 106/58 77 96 09/24 1945 70 [...] 09/24 1457 67 21 103/57 74 98 04/28 1454 66 16 100/55 73 99 04/28 1451 71 22 105/56 76 98 04/28 1448 68 17 101/55 74 99 04/28 1445 68 28 102/58 75 99 04/28 1442 68 24 105/59 76 98 04/28 1439 67 24 95/57 72 99 04/28 1436 69 18 104/59 80 99 24 hour I O ending at 0700: 04/29 0700 04/28 1900 Intake Total 3450.00 1191.80 Output Total 1350 375 Balance 2100.00 816.80 Intake, Blood 250 Product Intake, IV 320.00 571.80 Intake, Oral 1380 120 Intake, 1750 250 Packed Cells Number 1 Bowel Movements Number Voids 1 Output, Urine 1350 375 Patient Weight Weight (lb): 217Weight (oz): 2.49Weight (kg): 98.500 Medications:Active Meds + DC'd Last 24 HrsAlbumin Human 200 ML ONCE ONE IV (DC) Thiamine HCl 100 MG Q24H IV Sodium Chloride 100 MLFurosemide 20 MG BLOOD-DOSE AFTER IV (CKD) Sodium Chloride 250 ML ASDIR IV (DC) Mupirocin 1 APPLIC BID NASAL Calcium Gluconate 1,000 MG ASDIR PRN IV Sodium Chloride 100 MLMagnesium Sulfate 50 ML ASDIR PRN IV Magnesium [...] Phos/Sodium Phos 1 PKT ASDIR PRN PO (CKD) Potassium Phosphate 15 MM ASDIR PRN IV (CKD) Sodium Chloride 250 MLPotassium Phosphate 30 MM ASDIR PRN IV (CKD) Sodium Chloride 500 MLSodium Chloride 250 ML ASDIR IV (DC) Ceftriaxone Sodium 1 GM BEDTIME IV Sterile Water 10 MLAlbuterol Sulfate 2.5 MG RTQ6H PRN PRN INH Dextrose/Water 25 ML ASDIR PRN IV Glucagon 1 MG ASDIR PRN IM Glucose Polymer 15 GM ASDIR PRN PO Norepinephrine/Dextrose 250 ML ASDIR IV Octreotide Acetate 500 MCG ASDIR IV (CKD) Sodium Chloride 249 MLPantoprazole Sodium 80 MG ASDIR IV (CKD) Sodium Chloride 100 ML Physical ExamGeneral appearance: , awake, orientedENT: moist mucosal membranesNeck: supple/no meningismusCardiovascular: regular rate rhythmRespiratory: decreased breath soundsAbdomen: ascites, fluid wave c/w ascites, non-tender, softExtremities: moves all ResultsFindings/Data:Laboratory Tests 04/29 0330 Chemistry Sodium (133 - [...] (Auto) (14.1 - 45.4 %) 4.0 L [place] % (Auto) (2.5 - 11.7 %) 9.5 Eos % (Auto) (0.0 - 6.2 %) 0.3 Baso % (Auto) (0.0 - 2.1 %) 0.1 Gran # (2.0 - 13.7 k/mm3) 8.57 Lymph # (Auto) (0.6 - 3.8 K/mm3) 0.42 L [place] # (Auto) (0.11 - 0.59 K/mm3) 1.01 H Eos # (Auto) (0.0 - 0.4 K/mm3) 0.03 Baso # (Auto) (0.0 - 0.1 K/mm3) 0.01 Add Manual Diff (CRITERIA DIFF/SCN) MAN DIFF INDICATED Total Counted (100 #CELLS) 100 Immature Gran [...] (Auto) (14.1 - 45.4 %) 3.2 L [place] % (Auto) (2.5 - 11.7 %) 11.3 Eos % (Auto) (0.0 - 6.2 %) 0.0 Baso % (Auto) (0.0 - 2.1 %) 0.3 Gran # (2.0 - 13.7 k/mm3) 10.24 Lymph # (Auto) (0.6 - 3.8 K/mm3) 0.41 L [place] # (Auto) (0.11 - 0.59 K/mm3) 1.46 H Eos # (Auto) (0.0 - 0.4 K/mm3) 0.00 Baso # (Auto) (0.0 - 0.1 K/mm3) 0.04 Add Manual Diff (CRITERIA DIFF/SCN) MAN DIFF INDICATED Total Counted (100 #CELLS) 100 Immature Gran [...] Plt Morphology Comment (NORMAL PLTS ON SCAN) LARGE FEW Polychromasia (NONE ON SCAN) SLIGHT Anisocytosis (NONE ON SCAN) SLIGHT Ovalocytes (NONE ON SCAN) FEW Raysal Cells (NONE ON SCAN) FEW 04/28 1815 [...] (Auto) (14.1 - 45.4 %) 2.6 L [place] % (Auto) (2.5 - 11.7 %) 11.2 Eos % (Auto) (0.0 - 6.2 %) 0.0 Baso % (Auto) (0.0 - 2.1 %) 0.0 Gran # (2.0 - 13.7 k/mm3) 6.21 Lymph # (Auto) (0.6 - 3.8 K/mm3) 0.20 L [place] # (Auto) (0.11 - 0.59 K/mm3) 0.86 H Eos # (Auto) (0.0 - 0.4 K/mm3) 0.00 Baso # (Auto) (0.0 - 0.1 K/mm3) 0.00 Add Manual Diff (CRITERIA DIFF/SCN) MAN DIFF INDICATED Total Counted (100 #CELLS) 100 Immature Gran [...] Plt Morphology Comment (NORMAL PLTS ON SCAN) LARGE FEW Polychromasia (NONE ON SCAN) SLIGHT Anisocytosis (NONE ON SCAN) SLIGHT Ovalocytes (NONE ON SCAN) FEW Ethan Cells (NONE ON SCAN) FEW Diagnosis, Assessment Plan Free Text DxA P NotesFree Text DxA P Notes:1. Septic shock on presentation with lactic acid more than 6. We will continue sepsis protocol. Continue antibiotics. Cultures negative today 2. Upper gastrointestinal bleed . ContinueProtonix. s/p EGD DC octreotide 3. Severe acute blood loss anemia. will monitor and keep hb above 7 4. Severe ascites. Status post paracentesis 10 L of fluid removedWe will start patient on Lasix and small dose of Aldactone if blood pressure allows5. Increase in troponin, possibly demand ischemia. cardio following.6. Hepatic encephalopathy improved with the lactulose7. We will do deep venous thrombosis and gastrointestinal prophylaxes.8. Will advance diet increase activityDisposition if hemoglobin stable will anticipate discharging her home tomorrow at 1438 RPT #:[id number] OF REPORTPRProgress [id number]:35:[id number] for patient [id number]:38:27 2019-04-29 [id number]:34:00 [facility] 14:34:00 [facility] ([facility])Critical Care Progress NoteREPORT#:[id number] REPORT STATUS: SignedDATE:04/29/19 TIME: 1434 PATIENT: AMAURI CAPELLAN UNIT #: [id number]#: [id number] [address]FW[address] AGE: 48 SEX: F ATTEND: Jenny rCuz AUTHOR: Andrew De Luna MD * ALL edits or amendments must be made on the electronic/computer document * SubjectivePatient reports:No: complaints. Nursing reports:No: complaints. Comments:THE PT SEEMS TO BE DOING FAIRLY WELL ON RX. Objective GeneralVS/I OLast Documented: Result Date Time Pulse Ox 98 04/29 1422 Pulse 73 04/29 1422 Resp 24 04/29 1422 B/P 104/62 04/29 1400 B/P Mean 78 04/29 1400 O2 Delivery Room air 04/29 1004 Temp 36.9 04/29 0737 O2 Flow Rate 2.786911 04/27 2110 24 hour I O ending at 0700: 04/29 0700 04/28 1900 Intake Total 3450.00 1191.80 Output Total 1350 375 Balance 2100.00 816.80 Intake, Blood 250 Product Intake, IV 320.00 571.80 Intake, Oral 1380 120 Intake, 1750 250 Packed Cells Number 1 Bowel Movements Number Voids 1 Output, Urine 1350 375 Physical ExamGeneral appearance: alert, awakeHead/Eyes: atraumatic, normocephalic, PERRLENT: normal ear left, normal ear right, normal noseNeck: full range of motion, non-tender, normal thyroidCardiovascular: normal heart sounds, normal S1 S2, normal rate and rhythmRespiratory/Chest: decreased breath sounds, aerating well, symmetric expansionAbdomen: ascites, soft, non-tenderExtremities: no clubbing, no cyanosis, no edema ResultsFindings/Data:Laboratory Tests 04/29/19 1125:[Embedded Image Not Available] 04/29/19 033:[Embedded Image Not Available] 04/28/19 1815:[Embedded Image Not Available]Laboratory Tests 04/29 330 Chemistry Sodium (133 - [...] (Auto) (14.1 - 45.4 %) 4.0 L [place] % (Auto) (2.5 - 11.7 %) 9.5 Eos % (Auto) (0.0 - 6.2 %) 0.3 Baso % (Auto) (0.0 - 2.1 %) 0.1 Gran # (2.0 - 13.7 k/mm3) 8.57 Lymph # (Auto) (0.6 - 3.8 K/mm3) 0.42 L [place] # (Auto) (0.11 - 0.59 K/mm3) 1.01 H Eos # (Auto) (0.0 - 0.4 K/mm3) 0.03 Baso # (Auto) (0.0 - 0.1 K/mm3) 0.01 Add Manual Diff (CRITERIA DIFF/SCN) MAN DIFF INDICATED Total Counted (100 #CELLS) 100 Immature Gran [...] (Auto) (14.1 - 45.4 %) 3.2 L [place] % (Auto) (2.5 - 11.7 %) 11.3 Eos % (Auto) (0.0 - 6.2 %) 0.0 Baso % (Auto) (0.0 - 2.1 %) 0.3 Gran # (2.0 - 13.7 k/mm3) 10.24 Lymph # (Auto) (0.6 - 3.8 K/mm3) 0.41 L [place] # (Auto) (0.11 - 0.59 K/mm3) 1.46 H Eos # (Auto) (0.0 - 0.4 K/mm3) 0.00 Baso # (Auto) (0.0 - 0.1 K/mm3) 0.04 Add Manual Diff (CRITERIA DIFF/SCN) MAN DIFF INDICATED Total Counted (100 #CELLS) 100 Immature Gran [...] Plt Morphology Comment (NORMAL PLTS ON SCAN) LARGE FEW Polychromasia (NONE ON SCAN) SLIGHT Anisocytosis (NONE ON SCAN) SLIGHT Ovalocytes (NONE ON SCAN) FEW Raysal Cells (NONE ON SCAN) FEW 04/28 1815 [...] (Auto) (14.1 - 45.4 %) 2.6 L [place] % (Auto) (2.5 - 11.7 %) 11.2 Eos % (Auto) (0.0 - 6.2 %) 0.0 Baso % (Auto) (0.0 - 2.1 %) 0.0 Gran # (2.0 - 13.7 k/mm3) 6.21 Lymph # (Auto) (0.6 - 3.8 K/mm3) 0.20 L [place] # (Auto) (0.11 - 0.59 K/mm3) 0.86 H Eos # (Auto) (0.0 - 0.4 K/mm3) 0.00 Baso # (Auto) (0.0 - 0.1 K/mm3) 0.00 Add Manual Diff (CRITERIA DIFF/SCN) MAN DIFF INDICATED Total Counted (100 #CELLS) 100 Immature Gran [...] Plt Morphology Comment (NORMAL PLTS ON SCAN) LARGE FEW Polychromasia (NONE ON SCAN) SLIGHT Anisocytosis (NONE ON SCAN) SLIGHT Ovalocytes (NONE ON SCAN) FEW Raysal Cells (NONE ON SCAN) FEW Microbiology:04/28 1418 PERITONEAL: Body Fluid Culture - RECD04/28 141 PERITONEAL: Gram Stain - [id number] NASAL: MSSA Surveillance Screen - RES04/27 2358 NASAL: MRSA Screen - 2199 BLOOD: Blood Culture - RES04/27 2200 BLOOD: Blood Culture - RES Results: labs reviewed, current med profile rev'd Treatment Prophylaxis Treatment ProphylaxisOxygen: nasal cannulaLines: peripheralAnti-infectives: ceftriaxoneUlcer prophylaxis: famotidine Diagnosis, Assessment PlanProblem List/A P: 1. Upper GI bleed 2. Symptomatic anemia 3. Hemorrhagic shock Free Text A P:04/28THE PT SEEMS TO BE DOING FAIRLY WELL ON SUPPLEMENTAL O2 AND HAS HAD ENDOSCOPY. CERTAINLY I AM CONCERNED ABOUT HER LONG HX OF TOBACCO AND ETOH ABUSE. THERE IS EVIDENCE OF CIRRHOSIS AND ASCITES WITH PROTAL HTN AND ONGOING DUODENITIS. WILL PLANDW RNVIEWED CXRFLU WITH GISERIAL H/HRX K PT SEEMS TO BE DOING FAIRLY WELLTHERE IS EVIDENCE OF CIRRHOSIS AND ASCITES WITH PROTAL HTN AND ONGOING DUODENITIS. THE PT UNDERWENT PARACENTESIS FOR 10 LITERS YESTERDAY. WILL PLANDW RNFLU WITH GISERIAL H/[facility] SURG at 1438 RPT #:[id number] OF REPORTPRProgress [id number]:34:[id number] for patient [id number]:39:07 2019-04-28 [id number]:42:00 [facility] 23:42:00 [facility] ([facility])GE Consultation NoteREPORT#:[id number] REPORT STATUS: SignedDATE:04/28/19 TIME: 2341 PATIENT: AMAURI CAPELLAN UNIT #: [id number]#: [id number] [address]ZN: 68 AGE: 48 SEX: F ATTEND: Jenny Cruz MDA AUTHOR: Sandy South MD * ALL edits or amendments must be made on the electronic/computer document * History of Present IllnessReason for consult:HematemesisHPI:This is a 48-year-old female who was transferred from [place] who has hx of cirrhosis because of the abdominal pain, nausea and vomiting blood. She was found to be severely anemic at [place]. Patient also presented encephalopathic. She was transfused on arrival. She has hx of esophageal varicesand banding. History - Adult longitudinalPast medical history:Reports: Anemia, Hypertension, Cirrhosis. 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 Review of SystemsUnable to obtain due to:encephalopathic Objective Physical ExamVS/I O:Last Documented: Result Date Time Temp 37.0 04/28 2309 Pulse Ox 96 04/28 2300 B/P 97/54 04/28 2300 B/P Mean 73 04/28 2300 Pulse 71 04/28 2300 Resp 27 04/28 2300 O2 Delivery Room air 04/28 0756 O2 Flow Rate 2.657583 04/27 2110 24 hour I O ending at 0700: 04/28 0700 04/27 1900 Intake Total 2151.70 Output Total Balance 2151.70 Intake, IV 1801.70 Intake, 350 Packed Cells Number 1 Bowel Movements Number Voids 4 Patient 74.091 kg Weight Weight Stated/Reported Measurement Method Patient Weight Weight (lb): Weight (oz): Weight (kg): 74.091 Medications:Active Meds + DC'd Last 24 HrsAlbumin Human 200 ML ONCE ONE IV (DC) Thiamine HCl 100 MG Q24H IV Sodium Chloride 100 MLFurosemide 20 MG BLOOD-DOSE AFTER IV (CKD) Sodium Chloride 250 ML ASDIR IV Lidocaine HCl 0 .STK-MED ONE .ROUTE (DC) Propofol 20 ML .STK-MED ONE IV (DC) Mupirocin 1 APPLIC BID NASAL Albumin Human 200 ML Q1H IV (DC) Hydrocortisone Sodium Succinate 100 MG Q12HR IV (DC) Lactulose 300 ML ONCE ONE RECTAL (DC) Sodium Chloride 700 MLCalcium Gluconate 1,000 MG ASDIR PRN IV Sodium Chloride 100 MLLactulose 1,000 ML ONCE ONE RECTAL (CAN) Magnesium [...] Phos/Sodium Phos 1 PKT ASDIR PRN PO (CKD) Potassium Phosphate 15 MM ASDIR PRN IV (CKD) Sodium Chloride 250 MLPotassium Phosphate 30 MM ASDIR PRN IV (CKD) Sodium Chloride 500 MLSodium Chloride 250 ML ASDIR IV Ceftriaxone Sodium 1 GM BEDTIME IV Sterile Water 10 MLAlbuterol Sulfate 2.5 MG RTQ6H PRN PRN INH Dextrose/Water 25 ML ASDIR PRN IV Glucagon 1 MG ASDIR PRN IM Glucose Polymer 15 GM ASDIR PRN PO Norepinephrine/Dextrose 250 ML ASDIR IV Octreotide Acetate 500 MCG ASDIR IV (CKD) Sodium Chloride 249 MLPantoprazole Sodium 80 MG ASDIR IV (CKD) Sodium Chloride 100 MLOctreotide Acetate 500 MCG .[id number] ONE IV (DC) Sodium Chloride 249 MLPantoprazole Sodium 80 MG X1ED STA IV (DC) Sodium Chloride 100 ML General appearance: awakeHEENT: normocephalicCardiovascular: normal heart soundsRespiratory: symmetric expansionAbdomen: ascitesExtremities: no cyanosisNeuro/GANTRY CRANE OPERATOR: disoriented ResultsFindings/Data:Laboratory Tests 04/28/19 1815:[Embedded Image Not Available] 04/28/19 1157:[Embedded Image Not Available] 04/28/19 0545:[Embedded Image Not Available]Laboratory Tests 04/28 04/28 04/28 1020 0545 0330 [...] (Auto) (14.1 - 45.4 %) 2.6 L [place] % (Auto) (2.5 - 11.7 %) 11.2 Eos % (Auto) (0.0 - 6.2 %) 0.0 Baso % (Auto) (0.0 - 2.1 %) 0.0 Gran # (2.0 - 13.7 k/mm3) 6.21 Lymph # (Auto) (0.6 - 3.8 K/mm3) 0.20 L [place] # (Auto) (0.11 - 0.59 K/mm3) 0.86 H Eos # (Auto) (0.0 - 0.4 K/mm3) 0.00 Baso # (Auto) (0.0 - 0.1 K/mm3) 0.00 Add Manual Diff (CRITERIA DIFF/SCN) MAN DIFF INDICATED Total Counted (100 #CELLS) 100 Immature Gran [...] Plt Morphology Comment (NORMAL PLTS ON SCAN) LARGE FEW Polychromasia (NONE ON SCAN) SLIGHT Anisocytosis [...] (Auto) (14.1 - 45.4 %) 2.8 L [place] % (Auto) (2.5 - 11.7 %) 9.7 Eos % (Auto) (0.0 - 6.2 %) 0.0 Baso % (Auto) (0.0 - 2.1 %) 0.1 Gran # (2.0 - 13.7 k/mm3) 7.93 Lymph # (Auto) (0.6 - 3.8 K/mm3) 0.27 L [place] # (Auto) (0.11 - 0.59 K/mm3) 0.94 H Eos # (Auto) (0.0 - 0.4 K/mm3) 0.00 Baso # (Auto) (0.0 - 0.1 K/mm3) 0.01 Add Manual Diff (CRITERIA DIFF/SCN) MAN DIFF INDICATED Total Counted (100 #CELLS) 100 Immature Gran [...] (Auto) (14.1 - 45.4 %) 3.1 L [place] % (Auto) (2.5 - 11.7 %) 9.3 Eos % (Auto) (0.0 - 6.2 %) 0.1 Baso % (Auto) (0.0 - 2.1 %) 0.5 Gran # (2.0 - 13.7 k/mm3) 9.07 Lymph # (Auto) (0.6 - 3.8 K/mm3) 0.35 L [place] # (Auto) (0.11 - 0.59 K/mm3) 1.07 H Eos # (Auto) (0.0 - 0.4 K/mm3) 0.01 Baso # (Auto) (0.0 - 0.1 K/mm3) 0.06 Add Manual Diff (CRITERIA DIFF/SCN) MAN DIFF INDICATED Total Counted (100 #CELLS) 100 Immature Gran [...] - 8.0 pH UNITS) 6.0 Ur Specific Lena (1.001 - 1.035 SG) 1.014 Urine Protein (<30 (1+) mg/dL) NEGATIVE (0) Urine Glucose (UA) ((NEG) 0 mg/dL) NEGATIVE (0) Urine Ketones ((NEG) 0 mg/dL) 0 (NEG) Urine Blood ((NEG) 0 mg/DL) NEGATIVE (0) Urine Nitrite (NEG SCREEN) NEGATIVE (0) Urine Bilirubin ((NEG) 0 mg/dL) NEGATIVE (0) Urine Urobilinogen (<2.0 (1+) mg/dL) NORMAL (0) Ur Leukocyte Esterase ((NEG) 0 Leuk/mcL) NEGATIVE (0) Urine RBC (0 - 3 #RBC/HPF) 0-3 Urine WBC (0 - 3 #WBC/HPF) 0-3 Ur Squamous Epith Cells (NONE - SQepi /HPF) RARE >0 Urine Bacteria (NONE - FEW /HPF) FEW >1 Urine Culture Screen (Cult byWBC Criteria) Crit NOTmet CULT-N/A Urine Comment (SpecComment Notes) [place]ROY SPEC Diagnosis, Assessment Plan Free Text DxA P NotesFree Text DxA P Notes:Patient with cirrhosis non compliant with hx of esophageal varices who presents with anemia and hematemesis to an OSH - currently on PPI and octreotide drips.Recommend EGD today to evalute for varices and need for possible bandingRecommend paracentesis due to ascites-- will need diuretics on discharge if BP able to holdMonitor H/H for now Lactulose TID for encephalopathyRecommend albumin if low BPsCheck for SBP with paracentesisIf bleeding persists then consider bleeding scan at 2350 RPT #:[id number] OF REPORTTUYwsxooyazrcm0507-26-68X05:4 2:00B.[id number] for patient eypyUCLARVBMEJGYJT6180-32-82W69:50:52 2019-04-28 [id number]:21:00 HCACR 17:21:00 [facility] ([facility])Hospitalist Progress NoteREPORT#:[id number] REPORT STATUS: SignedDATE:04/28/19 TIME: 1721 PATIENT: AMAURI CAPELLAN UNIT #: [id number]#: [id number] ROOM/BED: [place] [address]TTY33-ZETT: 69 AGE: 48 SEX: F ATTEND: Jenny Cruz AUTHOR: Vanessa Webb MD * ALL edits or amendments must be made on the electronic/computer document * Subjective Free Text Subj NotesFree Subj Notes:pt s/p transfusion S/p EGD Objective GeneralVS/I O:Vital Signs: Date Time Temp Pulse Resp B/P B/P Pulse O2 O2 Flow FiO2 Mean Ox Delivery Rate 04/28 1628 66 15 98 09/ 1627 67 22 105/59 78 98 09/ 1624 66 19 104/59 79 98 /24 1621 67 22 103/55 74 98 09/24 [...] 114 27 124/67 86 100 Room air / 2150 117 25 112/65 80 100 Room air / 2135 117 24 98/54 68 100 Room air /5 36.6 119 24 97/53 67 100 Room air /6 118 19 84/48 60 100 Room air 04/27 2110 36.8 119 23 77/40 52 100 Nasal 2.114245 cannula 04/27 2105 116 24 93/48 63 100 Nasal 2.127412 cannula 04/27 2000 117 24 99/59 72 99 Nasal 2.148041 cannula 04/27 1930 36.9 132 20 79/46 57 100 Room air 24 hour I O ending at 0700: 04/28 0700 04/27 1900 Intake Total 2151.70 Output Total Balance 2151.70 Intake, IV 1801.70 Intake, 350 Packed Cells Number 1 Bowel Movements Number Voids 4 Patient 74.091 kg Weight Weight Stated/Reported Measurement Method Patient Weight Weight (lb): Weight (oz): Weight (kg): 74.091 Medications:Active Meds + DC'd Last 24 HrsAlbumin Human 200 ML ONCE ONE IV (DC) Thiamine HCl 100 MG Q24H IV Sodium Chloride 100 MLFurosemide 20 MG BLOOD-DOSE AFTER IV (CKD) Sodium Chloride 250 ML ASDIR IV Lidocaine HCl 0 .STK-MED ONE .ROUTE (DC) Propofol 20 ML .STK-MED ONE IV (DC) Mupirocin 1 APPLIC BID NASAL Albumin Human 200 ML Q1H IV (DC) Hydrocortisone Sodium Succinate 100 MG Q12HR IV (DC) Lactulose 300 ML ONCE ONE RECTAL (DC) Sodium Chloride 700 MLCalcium Gluconate 1,000 MG ASDIR PRN IV Sodium Chloride 100 MLLactulose 1,000 ML ONCE ONE RECTAL (CAN) Magnesium [...] Phos/Sodium Phos 1 PKT ASDIR PRN PO (CKD) Potassium Phosphate 15 MM ASDIR PRN IV (CKD) Sodium Chloride 250 MLPotassium Phosphate 30 MM ASDIR PRN IV (CKD) Sodium Chloride 500 MLSodium Chloride 250 ML ASDIR IV Ceftriaxone Sodium 1 GM BEDTIME IV Sterile Water 10 MLAlbuterol Sulfate 2.5 MG RTQ6H PRN PRN INH Dextrose/Water 25 ML ASDIR PRN IV Glucagon 1 MG ASDIR PRN IM Glucose Polymer 15 GM ASDIR PRN PO Norepinephrine/Dextrose 250 ML ASDIR IV Octreotide Acetate 500 MCG ASDIR IV (CKD) Sodium Chloride 249 MLPantoprazole Sodium 80 MG ASDIR IV (CKD) Sodium Chloride 100 MLCalcium Gluconate 1,000 MG X1ED STA IV (DC) Sodium Chloride 100 MLOctreotide Acetate 500 MCG .[id number] ONE IV (DC) Sodium Chloride 249 MLPantoprazole Sodium 80 MG X1ED STA IV (DC) Sodium Chloride 100 ML Physical ExamGeneral appearance: alert, awakeENT: moist mucosal membranesNeck: supple/no meningismusCardiovascular: regular rate rhythmRespiratory: decreased breath soundsAbdomen: ascites, distendedExtremities: moves all ResultsFindings/Data:Laboratory Tests 04/27 2034 Blood Gas Puncture Site (DESCRIPTION Site) Venous VBG pH (7.32 - 7.42 pH units) 7.16 L VBG pCO2 (41 - 51 mmHg) 23 L VBG pO2 (25 - 40 mmHg) 23 L VBG HCO3 (24 - 28 mmol/L) 8.3 L O2 Delivery Method (DESCRIPTION COMMENT) DC Laboratory Tests 04/28 04/28 04/28 1020 0545 [...] NORMAL Index/DL) 1 NORMAL <10 MG 04/287 1067 9 Chemistry Lactic Acid (0.4 - 2.0 mmol/L) [...] L Specimen Appearance (1 NORMAL Index/DL) 1 NORMAL <2 MG Specimen Hemolysis (1 NORMAL Index/DL) [...] (Auto) (14.1 - 45.4 %) 2.8 L [place] % (Auto) (2.5 - 11.7 %) 9.7 Eos % (Auto) (0.0 - 6.2 %) 0.0 Baso % (Auto) (0.0 - 2.1 %) 0.1 Gran # (2.0 - 13.7 k/mm3) 7.93 Lymph # (Auto) (0.6 - 3.8 K/mm3) 0.27 L [place] # (Auto) (0.11 - 0.59 K/mm3) 0.94 H Eos # (Auto) (0.0 - 0.4 K/mm3) 0.00 Baso # (Auto) (0.0 - 0.1 K/mm3) 0.01 Add Manual Diff (CRITERIA DIFF/SCN) MAN DIFF INDICATED Total Counted (100 #CELLS) 100 Immature Gran [...] (Auto) (14.1 - 45.4 %) 3.1 L [place] % (Auto) (2.5 - 11.7 %) 9.3 Eos % (Auto) (0.0 - 6.2 %) 0.1 Baso % (Auto) (0.0 - 2.1 %) 0.5 Gran # (2.0 - 13.7 k/mm3) 9.07 Lymph # (Auto) (0.6 - 3.8 K/mm3) 0.35 L [place] # (Auto) (0.11 - 0.59 K/mm3) 1.07 H Eos # (Auto) (0.0 - 0.4 K/mm3) 0.01 Baso # (Auto) (0.0 - 0.1 K/mm3) 0.06 Add Manual Diff (CRITERIA DIFF/SCN) MAN DIFF INDICATED Total Counted (100 #CELLS) 100 Immature Gran [...] (Auto) (14.1 - 45.4 %) 2.7 L [place] % (Auto) (2.5 - 11.7 %) 10.5 Eos % (Auto) (0.0 - 6.2 %) 0.2 Baso % (Auto) (0.0 - 2.1 %) 0.2 Gran # (2.0 - 13.7 k/mm3) 8.82 Lymph # (Auto) (0.6 - 3.8 K/mm3) 0.31 L [place] # (Auto) (0.11 - 0.59 K/mm3) 1.21 H Eos # (Auto) (0.0 - 0.4 K/mm3) 0.02 Baso # (Auto) (0.0 - 0.1 K/mm3) 0.02 Add Manual Diff (CRITERIA DIFF/SCN) MAN DIFF INDICATED Total Counted (100 #CELLS) 100 Immature Gran [...] (Auto) (14.1 - 45.4 %) 4.2 L [place] % (Auto) (2.5 - 11.7 %) 12.6 H Eos % (Auto) (0.0 - 6.2 %) 0.3 Baso % (Auto) (0.0 - 2.1 %) 0.0 Gran # (2.0 - 13.7 k/mm3) 10.44 Lymph # (Auto) (0.6 - 3.8 K/mm3) 0.61 [place] # (Auto) (0.11 - 0.59 K/mm3) 1.85 H Eos # (Auto) (0.0 - 0.4 K/mm3) 0.04 Baso # (Auto) (0.0 - 0.1 K/mm3) 0.00 Add Manual Diff (CRITERIA DIFF/SCN) MAN DIFF INDICATED Total Counted (100 #CELLS) 100 Immature Gran [...] SLIGHT Anisocytosis (NONE ON SCAN) MOD H Raysal Cells (NONE ON SCAN) FEW Hem Pathologist [...] - 8.0 pH UNITS) 6.0 Ur Specific Lena (1.001 - 1.035 SG) 1.014 Urine Protein (<30 (1+) mg/dL) NEGATIVE (0) Urine Glucose (UA) ((NEG) 0 mg/dL) NEGATIVE (0) Urine Ketones ((NEG) 0 mg/dL) 0 (NEG) Urine Blood ((NEG) 0 mg/DL) NEGATIVE (0) Urine Nitrite (NEG SCREEN) NEGATIVE (0) Urine Bilirubin ((NEG) 0 mg/dL) NEGATIVE (0) Urine Urobilinogen (<2.0 (1+) mg/dL) NORMAL (0) Ur Leukocyte Esterase ((NEG) 0 Leuk/mcL) NEGATIVE (0) Urine RBC (0 - 3 #RBC/HPF) 0-3 Urine WBC (0 - 3 #WBC/HPF) 0-3 Ur Squamous Epith Cells (NONE - SQepi /HPF) RARE >0 Urine Bacteria (NONE - FEW /HPF) FEW >1 Urine Culture Screen (Cult byWBC Criteria) Crit NOTmet CULT-N/A Urine Comment (SpecComment Notes) [place] SPEC Diagnosis, Assessment Plan Free Text DxA P NotesFree Text DxA P Notes:1. Septic shock on presentation with lactic acid more than 6. We will continue sepsis protocol. Continue antibiotics. Follow up cultures.2. Upper gastrointestinal bleed secondary to varices. Continue Sandostatin andProtonix. s/p EGD 3. Severe acute blood loss anemia. will monitor and keep hb above 7 4. Severe ascites. IR consulted for paracentesis when the patient is stable.5. Increase in troponin, possibly demand ischemia. cardio following.6. The patient has hepatic encephalopathy. We will continue lactulose to makesure at least 3 bowel movements per day.7. We will do deep venous thrombosis and gastrointestinal prophylaxes. at 1725 RPT #:[id number] OF REPORTPRProgress Sfuc5505-50-03S97:21:00B.[id number] [id number] for patient vzswCOKCKQKBUEDNIK9652-72-60N34:25:58 2019-04-28 GCqoyzscmok889558093496-38-45J18:00:00 HCACR 16:00:00 [facility] ([facility])Op/Inv Procedure Note - BriefREPORT#:[id number] REPORT STATUS: SignedDATE:04/28/19 TIME: 1600 PATIENT: AMAURI CAPELLAN UNIT #: [id number]#: [id number] [address] AGE: 48 SEX: F ATTEND: Jenny Cruz AUTHOR: Shilo Tesfaye MD * ALL edits or amendments must be made on the electronic/computer document * Op/Inv Proc Note - Brief TEXT Brief Op/Inv Procedure NoteNote details:Pre-procedure: Ascites Post-procedure: Same Procedure: US-guided paracentesis Primary Surgeon: __Dr. Tesfaye_ Assistants: None Anesthetic: Local; EBL: Less than 10 cc Specimens Removed: None Complications: None Drains: None Fluid Findings: Harrison clear. Please see full procedure report under imaging. at 1600 RPT #:[id number] OF REPORTPNProcedure [id number]:00:00B.[id number]- [id number] for patient bydeATHXHHVBWGOGXC3160-33-22H88:00:50 2019-04-28 [id number]:14:00 HCACR 12:14:00 [facility])Critical Care Consult NoteREPORT#:[id number] REPORT STATUS: SignedDATE:04/28/19 TIME: 1214 PATIENT: AMAURI CAPELLAN UNIT #: [id number]#: [id number] [address]ZC: [address] AGE: 48 SEX: F ATTEND: Jenny Cruz AUTHOR: Andrew De Luna MD * ALL edits or amendments must be made on the electronic/computer document * History of Present Illness HPIRequesting clinician: hospitalistRmount [facility] for consult:CRITICAL CAREChief complaint:HEMATEMESISHPI:MRS CAPELLAN IS A 48 YO WF WHO PRESENTS TO [facility] WITH A HX OF HEMATEMESIS AND HEMATOCHEZIA, SHE HAS HAD ISSUES LIKE THIS IN THE PAST AND HAS BEEN DX WITH PORTAL 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 SHE DENIES ANY F C CHEST PAIN OR SOB WHEEZING COUGH OR SPUTUM PRODUCTION. History - Adult longitudinalPast medical history:Reports: Anemia, Hypertension, Cirrhosis. 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 Skin:Denies: itching, laceration. Allergy/Immun:Denies: itching, rhinorrhea. Eyes:Denies: photophobia, swelling. ENT:Denies: tongue pain, tongue swelling. Respiratory:Denies: SOLIZ (dyspnea on exertion), hemoptysis, non productive cough, SOB, wheezing. Cardiovascular:Denies: chest pain, SOLIZ (dyspnea on exertion), edema, orthopnea. GI:Reports: hematemesis, hematochezia, nausea, vomiting. Denies: melena. Objective Physical Exam:VS/I O:Last Documented: Result Date Time Pulse Ox 100 04/28 1103 Pulse 62 04/28 1103 Resp 26 04/28 1103 B/P 102/53 04/28 1100 B/P Mean 73 04/28 1100 O2 Delivery Room air 04/28 0756 Temp 37.6 04/28 0400 O2 Flow Rate 2.715873 04/27 2110 24 hour I O ending at 0700: 04/28 0700 04/27 1900 Intake Total 2151.70 Output Total Balance 2151.70 Intake, IV 1801.70 Intake, 350 Packed Cells Number 1 Bowel Movements Number Voids 4 Patient 74.091 kg Weight Weight Stated/Reported Measurement Method General appearance: alert, awakeHead/Eyes: atraumatic, normocephalic, PERRLENT: normal ear left, normal ear right, normal noseNeck: full range of motion, non-tender, normal thyroidCardiovascular: normal heart sounds, normal S1 S2, normal rate and rhythmRespiratory/Chest: decreased breath sounds, aerating well, symmetric expansionAbdomen: ascites, soft, non-tenderExtremities: no clubbing, no cyanosis, no edema Results:Findings/Data:Laboratory Tests 04/28/19 0545:[Embedded Image Not Available] 04/27/192114:[Embedded Image Not Available] 04/27/191944:[Embedded Image Not Available]Laboratory Tests 04/27 2034 Blood Gas Puncture Site (DESCRIPTION Site) Venous VBG pH (7.32 - 7.42 pH units) 7.16 L VBG pCO2 (41 - 51 mmHg) 23 L VBG pO2 (25 - 40 mmHg) 23 L VBG HCO3 (24 - 28 mmol/L) 8.3 L O2 Delivery Method (DESCRIPTION COMMENT) DC Laboratory Tests 04/28 04/28 04/28 1020 0536 0330 Chemistry Sodium (133 - 144 mmol/L) [...] MG 04/28 04/28 04/27 04/27 0107 7 2235 2115 Chemistry Lactic Acid (0.4 - 2.0 mmol/L) 2.9 *H 6.2 *H Ionized Calcium Javed (1.13 - 1.32 mmol/L) 0.83 L Troponin I (0.000 - 0.045 NG/ML) 0.304 *H Procalcitonin (0.00 - 0.10 NG/ML) 1.21 H TSH (0.340 - 4.820 mc IU/ML) 1.440 04/275 Chemistry Sodium (133 - 144 mmol/L) 136.0 [...] L Specimen Appearance (1 NORMAL Index/DL) 1 NORMAL <2 MG Specimen Hemolysis (1 NORMAL Index/DL) 1 NORMAL <10 MG Laboratory Tests 04/27 1945 Coagulation PT (9.4 - 12.5 SECONDS) 16.6 H 21.3 H INR (0.88 - 1.13 INR Unit) 1.46 H 1.87 H PTT (Young) (24 - 37.7 SECONDS) 21.3 L 30.8 [...] (Auto) (14.1 - 45.4 %) 3.1 L [place] % (Auto) (2.5 - 11.7 %) 9.3 Eos % (Auto) (0.0 - 6.2 %) 0.1 Baso % (Auto) (0.0 - 2.1 %) 0.5 Gran # (2.0 - 13.7 k/mm3) 9.07 Lymph # (Auto) (0.6 - 3.8 K/mm3) 0.35 L [place] # (Auto) (0.11 - 0.59 K/mm3) 1.07 H Eos # (Auto) (0.0 - 0.4 K/mm3) 0.01 Baso # (Auto) (0.0 - 0.1 K/mm3) 0.06 Add Manual Diff (CRITERIA DIFF/SCN) MAN DIFF INDICATED Total Counted (100 #CELLS) 100 Immature Gran [...] (Auto) (14.1 - 45.4 %) 2.7 L [place] % (Auto) (2.5 - 11.7 %) 10.5 Eos % (Auto) (0.0 - 6.2 %) 0.2 Baso % (Auto) (0.0 - 2.1 %) 0.2 Gran # (2.0 - 13.7 k/mm3) 8.82 Lymph # (Auto) (0.6 - 3.8 K/mm3) 0.31 L [place] # (Auto) (0.11 - 0.59 K/mm3) 1.21 H Eos # (Auto) (0.0 - 0.4 K/mm3) 0.02 Baso # (Auto) (0.0 - 0.1 K/mm3) 0.02 Add Manual Diff (CRITERIA DIFF/SCN) MAN DIFF INDICATED Total Counted (100 #CELLS) 100 Immature Gran [...] (Auto) (14.1 - 45.4 %) 4.2 L [place] % (Auto) (2.5 - 11.7 %) 12.6 H Eos % (Auto) (0.0 - 6.2 %) 0.3 Baso % (Auto) (0.0 - 2.1 %) 0.0 Gran # (2.0 - 13.7 k/mm3) 10.44 Lymph # (Auto) (0.6 - 3.8 K/mm3) 0.61 [place] # (Auto) (0.11 - 0.59 K/mm3) 1.85 H Eos # (Auto) (0.0 - 0.4 K/mm3) 0.04 Baso # (Auto) (0.0 - 0.1 K/mm3) 0.00 Add Manual Diff (CRITERIA DIFF/SCN) MAN DIFF INDICATED Total Counted (100 #CELLS) 100 Immature Gran [...] SLIGHT Anisocytosis (NONE ON SCAN) MOD H Raysal Cells (NONE ON SCAN) FEW Hem Pathologist Report (COMMENTS EXTERNAL) Laboratory Tests 04/28 0545 Miscellaneous Maternal Serum HCG (0 - 3 mi-IU/ML) <1 Microbiology:04/27 2358 NASAL: MSSA Surveillance Screen - RECD04/27 2358 NASAL: MRSA Screen - REC2199 BLOOD: Blood Culture - RES04/27 2200 BLOOD: Blood Culture - RES Radiology data:Recent Impressions:RADIOLOGY - XR ABDOMEN 1 V 04/27 2010 Report Impression - Status: SIGNED Entered: 04/27/20192046 Impression: Appearance of the abdomen is nearly nondiagnostic secondary topatient's habitus. No definite prominent small bowel dilation isvisualized.Impression By: GreggSRDeanna Valderrama M.D.RADIOLOGY - XR CHEST 1 V 04/27 2033 Report Impression - Status: SIGNED Entered: 04/27/20192108 IMPRESSION:No definite consolidation. Question vascular congestion, evaluationlimited by low lung volumesNonspecific prominence of the upper mediastinumImpression By: GreggSRDeanna Valderrama M.D.CAT SCAN - CT ABD PELVIS W/O CONT 04/27 2250 Report Impression - Status: SIGNED Entered: 04/27/2019 234 IMPRESSION: Extensive ascites and a nodular cirrhotic appearing liver. Cholelithiasis. No bowel obstruction or free air. Extensive wall thickening of the stomach. Endoscopic correlationrecommended. Fluid containing umbilical hernia.Impression By: [email or web address] - Lizeth España M.D. Results: labs reviewed, vital signs stable, x-ray personally reviewed, current med profile rev'd Treatment Prophylaxis Treatment ProphylaxisOxygen: nasal cannulaLines: peripheralAnti-infectives: ceftriaxoneUlcer prophylaxis: pantoprazole Diagnosis, Assessment Plan Diagnosis, Assessment PlanProblem List/A P: 1. Upper GI bleed 2. Symptomatic anemia 3. Hemorrhagic shock Free Text A P:04/28THE PT SEEMS TO BE DOING FAIRLY WELL ON SUPPLEMENTAL O2 AND HAS HAD ENDOSCOPY. CERTAINLY I AM CONCERNED ABOUT HER LONG HX OF TOBACCO AND ETOH ABUSE. THERE IS EVIDENCE OF CIRRHOSIS AND ASCITES WITH PROTAL HTN AND ONGOING DUODENITIS. WILL PLANDW RNVIEWED CXRFLU WITH GISERIAL H/HRX K at 1225 RPT #:[id number] OF REPORTGMUopylwdrbfic1899-17-81X00:1 4:00B.[id number] for patient ogecZSLRONGCQERRTT6376-38-58Y92:26:04 2019-04-28 [id number]:14:00 HCACR 11:14:00 [id number] [place] [address] PATIENT NAME: AMAURI CAPELLAN ADMIT DATE: 04/27/19ACCOUNT NO: [id number] ROOM NO: BCCU23 AGE: 48 REPORT TYPE: ELECTROCARDIOGRAM SEX: F ADMITTING PHYSICIAN:Jenny Cruz MD ATTENDING PHYSICIAN:Jenny Cruz MD Order:[id number] Reason : CHEST PAIN Test Date/Time Stamp:SatApr 28 2019 11:14:25Blood Pressure : / mmHGVent. Rate : 071 BPM Atrial Rate : 071 BPM P-R Int : 158 ms QRS Dur : 094 ms QT Int : 472 ms P-R-T Axes : 038 038 054 degrees QTc Int : 512 ms Normal sinus rhythmProlonged QTAbnormal ECGNo previous ECGs availableConfirmed by JING GARCIA MD ([id number]) on 04/29/2019 7:09:05 AM Referred By: Oscar Mcleod Confirmed by:JING GARCIA MD at 0709 PATIENT NAME: AMAURI CAPELLAN .CPS20 [id number] for patient phwoMIFTLDTUIEULHG0962-67-69C48:09:34 2019-04-28 [id number]:55:00 HCACR 10:55:00 [id number] [place] [address] PATIENT NAME: AMAURI CAPELLAN ADMIT DATE: 04/27/19ACCOUNT NO: [id number] ROOM NO: B.CCU23 AGE: 48 REPORT TYPE: ENDOSCOPY REPORT SEX: F ADMITTING PHYSICIAN:Jenny Cruz MD ATTENDING PHYSICIAN:Jenny Cruz MD ___Patient Name: Amauri Capellan Attending MD: Sandy South , MDMRN: [id number] Gender: FemaleProcedure Date No Time: 04/28/2019 Date of : 1970Instrument Name: E248 ___ Referring Physician: Oscar Mcleod,Indications: Recent gastrointestinal bleeding, HematemesisMedicines: Monitored Anesthesia Care Procedure: Upper GI endoscopyComplications: No immediate complications. Estimated blood loss: Minimal. Pre-Sedation Assessment: Pre-Anesthesia Assessment: - Prior to the procedure, a History and Physical was performed, and patient medications and allergies were reviewed. The patient's tolerance of previous anesthesia was also reviewed. The risks and benefits of the procedure and the sedation options and risks were discussed with the patient. All questions were answered, and informed consent was obtained. Prior Anticoagulants: The patient has taken no previous anticoagulant or antiplatelet agents. ASA Grade Assessment: IV - A patient with severe systemic disease that is a constant threat to life. After reviewing the risks and benefits, the patient was deemed in satisfactory condition to undergo the procedure. - H and P completed, I have examined the patient on this date and have reviewed the medical history, drug history, and previous anesthesia experience. Results of the relevant diagnostic studies have been reviewed. Planned choice of anesthesia risk, complications, benefits and alternatives have been discussed. - Airway Examination: normal oropharyngeal airway and neck mobility. After obtaining informed consent, the endoscope was passed under direct visualization. Throughout the procedure, the patient's blood pressure, EKG, pulse, and oxygen saturations were monitored continuously. The Endoscope was introduced through the mouth, and advanced to the second part of duodenum. The upper GI endoscopy was accomplished without difficulty. The patient tolerated the procedure well.Findings: The upper third of the esophagus and middle third of the esophagus were normal. A post variceal banding scar was found in the lower PATIENT NAME: AMAURI CAPELLAN third of the esophagus. The scar was unremarkable in appearance. Portal hypertensive gastropathy was found in the stomach. Retained fluid was found in the gastric fundus. Patchy moderate inflammation with hemorrhage characterized by friability was found in the duodenal bulb. Coagulation for hemostasis using argon plasma was successful. The second portion of the duodenum was normal.Estimated Blood Loss: Estimated blood loss was minimal.Impression: - Normal upper third of esophagus and middle third of esophagus. - Scar in the lower third of the esophagus. - Portal hypertensive gastropathy. - Retained gastric fluid. - Duodenitis with hemorrhage. Treated with argon plasma coagulation (APC). - Normal second portion of the duodenum. - No specimens collected.Recommendation: - Return patient to ICU for ongoing care. - NPO. - Continue present medications. - Use Prilosec (omeprazole) 40 mg PO BID for 6 weeks.Procedure Code(s): --- Professional --- 32402, Esophagogastroduodenoscopy, flexible, transoral; with control of bleeding, any methodDiagnosis Code(s): --- Professional --- K22.8, Other specified diseases of esophagus K76.6, Portal hypertension K31.89, Other diseases of stomach and duodenum K29.81, Duodenitis with bleeding K92.2, Gastrointestinal hemorrhage, unspecified K92.0, Hematemesis CPT copyright 2017 [employer]. All rights reserved. The codes documented in this report are preliminary and upon process development engineer review may be revised to meet current compliance requirements. Sandy South MD Sandy South MD04/28/2019 11:37:28 AMThis report has been signed electronically.Provation {[id number]}.pdf ProVation FT PDF at 1137 PATIENT NAME: AMAURI CAPELLAN yttmdys7785-66-93U47:37:00B.[id number] for patient nqzpOOGDTJDGPVCKOV0640-95-68E97:38:02 2019-04-28 [id number]:33:00 HCACR 10:33:00 [id number] [place] [address] PATIENT NAME: AMAURI CAPELLAN ADMIT DATE: 04/27/19ACCOUNT NO: [id number] [facility]: 48 REPORT TYPE: eECHOCARDIOGRAM REPORT SEX: F ADMITTING PHYSICIAN:Jenny Cruz MD ATTENDING PHYSICIAN:Jenny Cruz MD Name: AMAURI CAPELLAN Study Date: 04/28/2019 10:33 AMPatient Location:[place] [address] DMRN: [id number]: [id number] BP: 100/55 mmHgAccount #: [id number]: 66 inGender: Female Weight: 163 lbDOB: 1970 Gender: FemaleAge: 48 yrsEthnicity: W BSA: 1.8 w4Ehcvrg For Study: anemia/elevated trop Cardiac Measurements with Normal Values:Ao root diam: 3.2 cm 20-37 mmACS: 2.2 cm 15-26 mmLA dimension: 4.1 cm 19-40 mmLVIDd: 5.1 cm 37-56 mmLVIDs: 3.5 cm - IVSd: 0.95 cm6-11 mmRVDd: 2.5 cm 7-23 mm MMode/2D Measurements CalculationsLVPWd: 0.92 cm FS: 31.0 % EDV(Teich): 124.4 ml ESV(Teich): 51.8 ml EF(Teich): 58.3 % LVOT diam: 2.0 cmAo root area: 7.8 cm2 LVOT area: 3.1 cm2 Doppler Measurements CalculationsMV E max garfield: 83.8 cm/sec MV dec slope: 337.0 cm/sec2MV A max garfield: 60.2 cm/sec MV dec time: 0.25 secMV E/A: 1.4 TR max garfield: 265.0 cm/sec RAP systole: 5.0 mmHgTR max P.1 mmHgRVSP(TR): 33.1 mmHg ConclusionsLeft ventricular systolic function is normal. Ejection Fraction = 55-60%. PATIENT NAME: AMAURI CAPELLAN The left ventricular wall motion is normal.There is normal left ventricular wall thickness.Right ventricular systolic pressure is normal. Left VentricleThe left ventricle is normal in size. There is normal left ventricular wallthickness. Left ventricular systolic function is normal. Ejection Fraction =55-60%. The left ventricular wall motion is normal. Right VentricleThe right ventricle is normal in size and function. AtriaThe left atrium is mildly dilated. Right atrial size is normal. Mitral ValveThe mitral valve is normal in structure and function. There is trace mitralregurgitation. Tricuspid ValveThe tricuspid valve is normal in structure and function. There is tracetricuspid regurgitation. Right ventricular systolic pressure is normal. Aortic ValveThe aortic valve is normal in structure and function. Pulmonic ValveThe pulmonic valve is not well visualized. Great VesselsThe aortic root is normal size. Pericardium/PleuralThere is no pericardial effusion. ___ Electronically signed by: MAGDALENE SMART MD 04/29/2019 10:51 AMOrdering Physician: Sandra FlorezeReferring Physician: Oscar McleodPerformed By: Ayo Miller at 1052 PATIENT NAME: AMAURI CAPELLAN -25T10:51:00B.[id number] [facility] [id number]:52:24 2019-04-28 [id number]:23:00 [facility] 10:23:00 [facility] ([facility]PITALCardiology ConsultationREPORT#:[id number] REPORT STATUS: SignedDATE:04/28/19 TIME: 1023 PATIENT: AMAURI CAPELLAN UNIT #: [id number]#: [id number] [address]BPII: [address] AGE: 48 SEX: F ATTEND: Jenny Cruz [facility] AUTHOR: Lee Padron MD * ALL edits or amendments must be made on the electronic/computer document * History of Present Illness HPIRequesting Clinician: Hugo for consult:preop evalChief complaint:GI bleedHPI:48-year-old female presents with complaints of vomiting blood also passing dark stools over the last several days. She has a history of tobacco and alcohol abuse. She states she quit drinking drinking approximately 3 months ago. She denies chest pain, palpitations, syncope. She reports associated generalized weakness and dizziness. No history of CAD, CHF, diabetes, stroke, CKD.Patient has a history of hernia, with mesh repair. She has a history of anemia and has received blood transfusions in the past. History - Adult longitudinalPast medical history:Reports: Anemia, Hypertension, Cirrhosis. Alcohol use: Alcohol use (quit 3 months ago)Smoking status for patients 13 years old or older: Former SmokerMedications:Home Medications: Medication Dose/Rte/Freq Days Qty Entered Last Max Daily Dose Reviewed Unable to Obtain Home Medication History Current Hospital Medications:Anti-Infective Agents Sig/Ever Start time Last Medication Dose Route Stop Time Status Admin Ceftriaxone Sodium 1 GM BEDTIME 04/27 2359 AC 04/28 (ROCEPHIN) IV 05/02 0400 0132 Sterile Water 10 ML (STERILE WATER) Antineoplastic Agents Sig/Ever Start time Last Medication Dose Route Stop Time Status Admin Octreotide Acetate 500 MCG ASDIR 04/27 234 CKD 04/28 (SandoSTATIN) IV 05/27 2346 0133 Sodium Chloride 249 ML (NORMAL SALINE 250 ML) Octreotide Acetate 500 MCG .[id number] ONE 04/27 2000 DC (SandoSTATIN) IV 04/28 08 Sodium Chloride 249 ML (NORMAL SALINE 250 ML) Autonomic Drugs Sig/Ever Start time Last Medication Dose Route Stop Time Status Admin Albuterol Sulfate 2.5 MG RTQ6H PRN PRN 04/27 234 AC (PROVENTIL) INH 05/27 2346 Norepinephrine/ 250 ML ASDIR 04/27 2345 AC Dextrose IV 05/27 2346 (LEVOPHED-D5W 8 MG/ 250 ML) Blood Derivatives Sig/Ever Start time Last Medication Dose Route Stop Time Status Admin Albumin Human 200 ML Q1H 04/28 010 DC 04/28 (ALBUMINAR-25) IV 04/28 0259 0238 Central Nervous System Agents Sig/Ever Start time Last Medication Dose Route Stop Time Status Admin Magnesium Sulfate 50 ML ASDIR PRN 04/28 0015 AC (MAGNESIUM SULFATE IV 05/28 0016 2GM/50ML BAG) Magnesium Sulfate/ 100 ML ASDIR PRN 04/28 0015 AC Dextrose IV 05/28 0016 (MAGNESIUM SULFATE 1GM/D5W 100ML) Electrolytic, Caloric, And Stephen Sig/Ever Start time Last Medication Dose Route Stop Time Status Admin Lactulose 300 ML ONCE ONE 04/28 0100 DC 04/28 (CHRONULAC 20 GM/30 RECTAL 04/28 0101 0355 ML) Sodium Chloride 700 ML (SODIUM [...] HCl 4 MG Q6H PRN PRN 04/28 0015 AC (ZOFRAN) IV 05/28 0016 Pantoprazole Sodium 80 MG ASDIR 04/27 234 CKD 04/28 (Protonix IV) IV 05/27 2346 0134 Sodium Chloride 100 ML (NORMAL SALINE 100 ML) Pantoprazole Sodium 80 MG X1ED STA 04/27 1946 DC (Protonix IV) IV 04/28 0545 Sodium Chloride 100 ML (NORMAL SALINE 100 ML) Hormones And Synthetic Substit Sig/Ever Start time Last Medication Dose Route Stop Time Status Admin Hydrocortisone 100 MG Q12HR 04/28 0100 AC 04/28 Sodium Succinate IV 05/28 0101 0850 (Solu-CORTEF) Glucagon 1 MG ASDIR PRN 04/27 2345 AC (GLUCAGON) IM 05/27 2346 Skin And Mucous Membrane Agent Sig/Ever Start time Last Medication Dose Route Stop Time Status Admin Mupirocin 1 APPLIC BID 04/28 0200 AC 04/28 (BACTROBAN NASAL - NASAL 05/02 0901 0850 ADULT ICU) Allergies:Coded Allergies:No Known Allergies (04/27/19) Review of SystemsAdditional notes:12 point ROS performed with pertinent +/- per HPI Objective Physical ExamVS/I O:Vital Signs: Date Time Temp Pulse Resp B/P [...] 04/28 0530 91 15 96/52 71 92 09/24 0515 92 15 101/53 70 93 / 0507 93 Room air 04/28 0500 88 15 97/55 73 94 09/24 0445 83 11 89/51 65 96 /24 0430 92 21 94/55 69 92 /24 0415 96 29 88/53 65 93 / 0400 37.6 98 31 93/50 67 96 / 0345 37.5 98 23 93/55 68 09/ 0330 99 20 103/63 78 96 /24 0315 100 22 100/56 74 97 / 0300 99 19 97/53 72 94 /24 0245 106 30 109/68 83 96 /24 0230 102 18 106/65 80 91 /24 0215 109 23 85/46 61 95 / 0200 115 21 96/51 70 95 / 0145 112 22 98/54 74 95 / 0130 108 19 107/68 83 94 / 0115 109 20 113/69 86 96 / 0100 120 22 97/55 71 96 / 0045 109 17 112/63 79 98 / 0030 37.1 117 24 100/59 76 98 / 0015 113 17 94/53 69 98 / 0000 37.2 114 19 112/68 83 96 04/27 2345 115 19 117/75 92 97 04/27 2330 115 19 117/73 88 98 04/27 2315 37.2 113 26 143/76 100 98 04/27 2200 37.1 114 27 124/67 86 100 Room air 04/27 2150 117 25 112/65 80 100 Room air 04/275 117 24 98/54 68 100 Room air 04/275 36.6 119 24 97/53 67 100 Room air 04/276 118 19 84/48 60 100 Room air 04/27 2110 36.8 119 23 77/40 52 100 Nasal 2.131203 cannula 04/27 2105 116 24 93/48 63 100 Nasal 2.711684 cannula 04/27 2000 117 24 99/59 72 99 Nasal 2.671718 cannula 04/270 36.9 132 20 79/46 57 100 Room air 24 hour I O ending at 0700: 04/28 0700 04/27 1900 Intake Total 2151.70 Output Total Balance 2151.70 Intake, IV 1801.70 Intake, 350 Packed Cells Number 1 Bowel Movements Number Voids 4 Patient 74.091 kg Weight Weight Stated/Reported Measurement Method Patient Weight Weight (lb): Weight (oz): Weight (kg): 74.091 General appearance: awake, oriented, no acute distress, pleasantHead/Eyes: atraumatic, EOMINeck: no JVDCardiovascular: CV assessment: regular rate and rhythm, normal heart soundsRespiratory: decreased breath sounds, no distressAbdomen: distendedGenitourinary: no foleyLower extremity: LE assessment: no edemaMusculoskeletal: MAENeuro/GANTRY CRANE OPERATOR: alert, oriented X 3Skin: dry (pale)Psychiatry: normal affect ResultsFindings/Data:Laboratory Tests 04/27 2034 Blood Gas Puncture Site (DESCRIPTION Site) Venous VBG pH (7.32 - 7.42 pH units) 7.16 L VBG pCO2 (41 - 51 mmHg) 23 L VBG pO2 (25 - 40 mmHg) 23 L VBG HCO3 (24 - 28 mmol/L) 8.3 L O2 Delivery Method (DESCRIPTION COMMENT) DC Laboratory Tests 04/28 04/28 04/28 0545 0330 [...] NORMAL Index/DL) 1 NORMAL <10 MG 04/28 Chemistry Lactic Acid (0.4 - 2.0 mmol/L) [...] L Specimen Appearance (1 NORMAL Index/DL) 1 NORMAL <2 MG Specimen Hemolysis (1 NORMAL Index/DL) [...] (Auto) (14.1 - 45.4 %) 3.1 L [place] % (Auto) (2.5 - 11.7 %) 9.3 Eos % (Auto) (0.0 - 6.2 %) 0.1 Baso % (Auto) (0.0 - 2.1 %) 0.5 Gran # (2.0 - 13.7 k/mm3) 9.07 Lymph # (Auto) (0.6 - 3.8 K/mm3) 0.35 L [place] # (Auto) (0.11 - 0.59 K/mm3) 1.07 H Eos # (Auto) (0.0 - 0.4 K/mm3) 0.01 Baso # (Auto) (0.0 - 0.1 K/mm3) 0.06 Add Manual Diff (CRITERIA DIFF/SCN) MAN DIFF INDICATED Total Counted (100 #CELLS) 100 Immature Gran [...] SCAN) SLIGHT Ovalocytes (NONE ON SCAN) FEW 09/23 2115 Hematology WBC (4.1 - 12.1 K/mm3) [...] (Auto) (14.1 - 45.4 %) 2.7 L [place] % (Auto) (2.5 - 11.7 %) 10.5 Eos % (Auto) (0.0 - 6.2 %) 0.2 Baso % (Auto) (0.0 - 2.1 %) 0.2 Gran # (2.0 - 13.7 k/mm3) 8.82 Lymph # (Auto) (0.6 - 3.8 K/mm3) 0.31 L [place] # (Auto) (0.11 - 0.59 K/mm3) 1.21 H Eos # (Auto) (0.0 - 0.4 K/mm3) 0.02 Baso # (Auto) (0.0 - 0.1 K/mm3) 0.02 Add Manual Diff (CRITERIA DIFF/SCN) MAN DIFF INDICATED Total Counted (100 #CELLS) 100 Immature Gran [...] SCAN) SLIGHT Ovalocytes (NONE ON SCAN) FEW Raysal Cells (NONE ON SCAN) FEW Acanthocytes (Spur) [...] (Auto) (14.1 - 45.4 %) 4.2 L [place] % (Auto) (2.5 - 11.7 %) 12.6 H Eos % (Auto) (0.0 - 6.2 %) 0.3 Baso % (Auto) (0.0 - 2.1 %) 0.0 Gran # (2.0 - 13.7 k/mm3) 10.44 Lymph # (Auto) (0.6 - 3.8 K/mm3) 0.61 [place] # (Auto) (0.11 - 0.59 K/mm3) 1.85 H Eos # (Auto) (0.0 - 0.4 K/mm3) 0.04 Baso # (Auto) (0.0 - 0.1 K/mm3) 0.00 Add Manual Diff (CRITERIA DIFF/SCN) MAN DIFF INDICATED Total Counted (100 #CELLS) 100 Immature Gran [...] SLIGHT Anisocytosis (NONE ON SCAN) MOD H Raysal Cells (NONE ON SCAN) FEW Laboratory Tests 04/28 0545 Miscellaneous Maternal Serum HCG (0 - 3 mi-IU/ML) <1 Laboratory Tests 04/28 04/27 0107 1945 Chemistry Troponin I (0.000 - 0.045 NG/ML) 0.304 *H 0.064 *H Radiology Data:Recent Impressions:RADIOLOGY - XR ABDOMEN 1 V 04/27 2010 Report Impression - Status: SIGNED Entered: 04/27/20192046 Impression: Appearance of the abdomen is nearly nondiagnostic secondary topatient's habitus. No definite prominent small bowel dilation isvisualized.Impression By: Lilian Valderrama M.D.RADIOLOGY - XR CHEST 1 V 04/27 2033 Report Impression - Status: SIGNED Entered: 04/27/20192108 IMPRESSION:No definite consolidation. Question vascular congestion, evaluationlimited by low lung volumesNonspecific prominence of the upper mediastinumImpression By: GreggSRDeanna Valderrama M.D.CAT SCAN - CT ABD PELVIS W/O CONT 04/27 225 Report Impression - Status: SIGNED Entered: 04/27/2019 2340 IMPRESSION: Extensive ascites and a nodular cirrhotic appearing liver. Cholelithiasis. No bowel obstruction or free air. Extensive wall thickening of the stomach. Endoscopic correlationrecommended. Fluid containing umbilical hernia.Impression By: GreggMAMartin España M.D. Diagnosis, Assessment Plan Free Text DxA P NotesFree Text DxA P Notes:1. Preprocedure evaluation, cardiac clearancePatient with history of hypertension and cirrhosisShe denies history of diabetes, hyperlipidemia, stroke, CHF, lung disease or kidney diseaseMinimal troponin elevation likely demand ischemia in the setting of severe anemiaPatient of moderate risk for perioperative cardiovascular events. 2. GI bleed/Severe anemiaWork-up pending 3. HTNBPs on the low side. Continue to monitor 4. Ascites 5. Elevated lactic acid 6. Elevated troponinLikely demand ischemia in the setting of severe anemiano hx CAD, no CPObtain echo to evaluate LVEF, assess for RWMA and valve diseaseFurther ischemic eval when cleared from GI standpoint at 1033 RPT #:[id number] OF REPORTEOOonoymssckbj6032-71-86M43:2 3:00B.[id number] for patient fxjdFUVGKVWTKHCUWV3018-57-96B69:33:52 2019-04-27 [id number]:51:00 HCACR 23:51:00 [facility] ([facility])Admit Note - BriefREPORT#:[id number] REPORT STATUS: SignedDATE:04/27/19 TIME: 2350 PATIENT: AMAURI CAPELLAN UNIT #: [id number]#: [id number] [address]19[address]ZYTX: 69 AGE: 48 SEX: F ATTEND: Jenny Cruz [facility] AUTHOR: Jenny Cruz MD * ALL edits or amendments must be made on the electronic/computer document * History - Adult longitudinalAllergies:Coded Allergies:No Known Allergies (04/27/19) Impression/Plan of CareFree Text A P:[id number] at 2351 RPT #:[id number] OF REPORTCLClinical cmjy3993-00-44K13:51:00B.[id number] 0767AVAvailable for patient sgjxVWUWSACGDRYNTI8228-04-99H91:51:56 2019-04-27 [id number]:51:00 HCACR 23:51:00 [id number] [place], [place] [address] PATIENT NAME: AMAURI CAPELLAN ADMIT DATE: 04/27/19ACCOUNT NO: [id number] ROOM NO: CCU AGE: 48 REPORT TYPE: HISTORY AND PHYSICAL SEX: F ADMITTING PHYSICIAN:Jenny Cruz MD ATTENDING PHYSICIAN:Jenny Cruz MD ADMISSION DATE: 04/27/2019 PRIMARY CARE PHYSICIAN: Not known. PRESENTATION: Abdominal distention and pain, altered mental status. HISTORY OF PRESENTING COMPLAINT: This is a 48-year-old [place] pain, nausea and vomiting. She had history of hematemesis and black stools for 2 days. The patient hashistory of cirrhosis. She was found to have severe anemia with hemoglobin of 3. She was started on Protonix and Sandostatin drips along with pressor agents andshe was later transferred to [facility] ER where she was started on PRBC transfusion. GI was also consulted. They advised conservative management at this time andthe patient was later transferred to ICU for further management. History islimited because of the patient's altered mental status. REVIEW OF SYSTEMS: Nausea, vomiting, hematemesis, melena, abdominal distention,ascites positive. Altered mental status positive. No history of dysuria,hematuria, urgency or frequency. No history of cough, sputum or shortness ofbreath. No history of seizure activity. ALLERGIES: NO KNOWN DRUG ALLERGIES. MEDICATIONS: Please see the MAR. PAST MEDICAL HISTORY: Alcoholic liver disease, anemia, ascites, cirrhosis,hypertension, neutropenia. PAST SURGICAL HISTORY: Hernia repair. SOCIAL HISTORY: No history of smoking, drugs or alcohol. PHYSICAL EXAMINATION:GENERAL: The patient lying in bed, in moderate distress.VITAL SIGNS: Temperature 36.9. Pulse 132, 113. Respiratory rate 26, bloodpressure 143/76, pulse ox 98%. Initial blood pressure 79/46.HEENT: Atraumatic, flushed face.NECK: Supple.CHEST: Decreased air entry. Occasional wheeze. Occasional rales.ABDOMEN: Extensively distended with umbilical hernia and prominent veins,ascites positive.CARDIOVASCULAR: S1, S2 audible. Tachycardia. No murmur, rub or gallop. PATIENT NAME: AMAURI CAPELLAN CENTRAL NERVOUS SYSTEM: Altered mental status.EXTREMITIES: Edema positive. LABORATORY DATA: At the peripheral ER in [place]; WBC 10.1, hemoglobin 2.7and platelets 197. Alcohol less than 5. Lactic acid 7.3. Sodium 131,potassium 4.2, chloride 105, carbon dioxide 14, anion gap 16.2, glucose 119,calcium 7.2, BUN 66, creatinine 1.6, albumin 1.5. Total bilirubin is 0.8,alkaline phosphatase 129. Total protein 5.1. ALT 2.1, AST 53. Globulin 3.6,amylase 77, lipase 62. Gastric occult blood positive. Prothrombin time 20. INR 1.8 and PTT 30. Labs here at [facility]; lactic acid 6.2. WBC 11.6, hemoglobin 5.6 and platelets 120. INR 1.46. Fibrinogen 232. Ionized calcium 0.83. VBG; pH 7.16, pCO2 of 23,pO2 23, bicarbonate 8.3. WBC 14.6, hemoglobin 3.2 initially, platelets 217. INR 1.87. Sodium 136, potassium 4.5, chloride 108, carbon dioxide 8, anion gap20, BUN 57, creatinine 1.7, GFR 32, calcium 7. Total bilirubin 0.61, AST 46,ALT 24. Troponin 0.64. Total protein 5.2, albumin 1.5. CT abdomen and pelvisshows extensive ascites and nodular severe cirrhotic-appearing liver. No bowelobstruction. No free air. Extensive wall thickening of the stomach. Endoscopic correlation recommended. Fluid containing umbilical hernia. X-raychest, no definite consolidation, question vascular congestion. Evaluationlimited by low lung volume, nonspecific prominence of upper mediastinum. X-rayabdomen, appearance of abdomen is nearly nondiagnostic secondary to patienthabitus. ASSESSMENT AND PLAN:1. Septic shock on presentation with lactic acid more than 6. ____ less than 9 and liver failure. We will continue sepsis protocol. Continue antibiotics. Follow up cultures.2. Upper gastrointestinal bleed secondary to varices. Continue Sandostatin andProtonix. Follow up with GI.3. Severe acute blood loss anemia. Continue PRBC transfusion. Keep hemoglobinup to 7.4. Severe ascites. Continue diuretics including spironolactone. Consider IRfor paracentesis when the patient is stable.5. Increase in troponin, possibly demand ischemia. We cannot give aspirin atthis time. We will consult Cardiology. Trend cardiac enzymes.6. The patient has hepatic encephalopathy. We will continue lactulose to makesure at least 3 bowel movements per day.7. We will do deep venous thrombosis and gastrointestinal prophylaxes. Condition discussed with the staff and the patient. Questions are answered. Advance directive discussed. Medications reviewed and reconciled. No family isaround for discussion. The patient's condition is critical. Dictated By: Jenny Cruz MD WT: HP:B.MARLA/RUBÉN/NTSDD: 04/27/2019 23:51:29DT: 04/28/2019 02:02:44 PATIENT NAME: AMAURI CAPELLAN Conf#: [id number]/DID#: [id number] by Jenny Cruz MD On 04/29/2019 07:00:34 AM at 0700 PATIENT NAME: AMAURI CAPELLAN and physical fvdvjjzxttl8555-06-42M47:02:00B.VVO239 [id number] for patient kpnvMELURIAUIHCJVK9382-99-70F01:01:04 2019-04-27 [id number]:38:00 HCACR 19:38:00 [facility] ([facility]ITALEMERGENCY PROVIDER REPORTREPORT#:[id number] REPORT STATUS: SignedDATE:04/27/19 TIME: 1937 PATIENT: AMAURI CAPELLAN UNIT #: [id number]#: [id number] ROOM/BED:AGE: 48 SEX: F PCP PHYS: No Primary or Family PhysicianSERVICE AUTHOR: Oscar Mcleod MD * ALL edits or amendments must be made on the electronic/computer document * HPI-Abd Pain F 40 and Over GeneralConfirmed Patient YesInitial Greet Date/Time 04/27/195Assumed Care at Time 1937 Date 04/27/19 PresentationChief Complaint Abdominal painHx Obtained From Patient, ParamedicSudden in Onset? NoOnset Occurred Days agoSymptom Duration Since onsetCaused by No trauma by historyAssociated withReports: Melena, Nausea, Vomiting. Exacerbated by NothingRelieved by Nothing Free Text HPI NotesFree Text HPI Notes48 y/o female [facility] abd painand n/v. Pt states she has vomited blood and has had black stool for 2 days. Pt has a PMhx of cirrhosis, HTN and anemia. Pt received less than 1 unit of PRVCs on arrival. Portions of this section were scribed by Liat Bennett on 04/27/19 at 2036 Risk-Abd Pain F 40 and Over)( Abdominal Aortic Aneurysm Risk factors reviewed, Hypertension Portions of this section were scribed by Liat Bennett on 04/27/19 at 2026 Review of Systems ROS StatementsAll systems rev neg except as marked. Focused Review of SystemsConstitutionalDenies: Chills, Fatigue, Fever. RespiratoryDenies: Shortness of breath, Wheezing. CardiovascularDenies: Chest pain, Syncope. GIReports: Abdominal pain, Melena, Nausea, Vomiting. FemaleDenies: Dysuria, Hematuria. MusculoskeletalDenies: Back pain, Neck pain. Additional Review of SystemsEyesDenies: Blurred bilat, Discharge bilat. Ears/Nose/ThroatDenies: Sinus problem, Sore throat. SkinDenies: Abrasion, Laceration. NeurologicDenies: Confusion, Dizziness. PsychiatricDenies: Agitation, Anxiety. Portions of this section were scribed by Liat Bennett on 04/27/19 at 2026 Past Medical History - AdultStated Complaint GI BLEEDAllergiesCoded Allergies:No Known Allergies (04/27/19) Home MedicationsReported MedicationsUnable to Obtain Home Medication History Pt reports no significant: Past surgical history, Family historyPast Medical History:Reports: Anemia, Hypertension, Cirrhosis. Smoking status for patients 13 years old or older: Unknown,if ever smoked Portions of this section were scribed by Liat Bennett on 04/27/19 at 2026 Physical Exam Vital SignsVital SignsFirst Documented: Result Date Time Pulse Ox 100 [...] 1930 Review of Vital Signs Reviewed Focused PEGeneral/Const General/Const Awake, AlertMS Head Head Atraumatic, NormocephalicEyes Eyes Atraumatic, PERRL, EOMIEars/Nose/Throat Ears/Nose/Throat Atraumatic, Airway patent, Mucous membranes moist, Pharynx NLResp/Chest Respiratory/Chest Atraumatic, Breath sounds NL, Breath sounds = bilatCardiovascular Cardiovascular Heart sounds NL Heart Rate/Rhythm Tachycardia. Abdomen/GI Text/Dict Notesabd large and distendedMS Back Back Atraumatic, Inspection NL, Full range of motionSkin Skin Atraumatic, Color NL, Warm, Dry, IntactGenitourinary General Exam deferredRectum Rectal for Blood Melena present. Neurologic Neurologic Oriented X3, Speech NL Additional PEMS Neck Neck Atraumatic, Supple, Full range of motionMS Upper Extrem Upper Extremity/MS Atraumatic, Inspection NLMS Wrist/Hand Wrist/Hand Atraumatic, Inspection NLMS Lower Extrem Lower Ext/Pelvis/MS Atraumatic, Inspection NLMS Ankle/Foot Ankle/Foot Atraumatic, Inspection NLPsychiatric Psychiatric Affect NL, Mood NL Portions of this section were scribed by Liat Bennett on 04/27/19 at 2036 Interpretation Diagnostics Lab Results InterpretationResultsLaboratory Tests 04/27/192114:[Embedded Image Not Available] 04/27/191944:[Embedded Image Not Available]Laboratory Tests: 04/27 Blood Gas Puncture Site (DESCRIPTION [...] (Auto) (14.1 - 45.4 %) 2.7 L [place] % (Auto) (2.5 - 11.7 %) 10.5 Eos % (Auto) (0.0 - 6.2 %) 0.2 Baso % (Auto) (0.0 - 2.1 %) 0.2 Gran # (2.0 - 13.7 k/mm3) 8.82 Lymph # (Auto) (0.6 - 3.8 K/mm3) 0.31 L [place] # (Auto) (0.11 - 0.59 K/mm3) 1.21 H Eos # (Auto) (0.0 - 0.4 K/mm3) 0.02 Baso # (Auto) (0.0 - 0.1 K/mm3) 0.02 Add Manual Diff (CRITERIA DIFF/SCN) MAN DIFF INDICATED Immature Gran % (0.0 - 2.0 %) [...] L Specimen Appearance (1 NORMAL Index/DL) 1 NORMAL <2 MG Specimen Hemolysis (1 NORMAL Index/DL) 1 NORMAL <10 MG Coagulation PT (9.4 - 12.5 SECONDS) 21.3 H INR (0.88 - 1.13 INR Unit) 1.87 H PTT (Miguel) (24 - 37.7 SECONDS) 30.8 Hematology WBC [...] (Auto) (14.1 - 45.4 %) 4.2 L [place] % (Auto) (2.5 - 11.7 %) 12.6 H Eos % (Auto) (0.0 - 6.2 %) 0.3 Baso % (Auto) (0.0 - 2.1 %) 0.0 Gran # (2.0 - 13.7 k/mm3) 10.44 Lymph # (Auto) (0.6 - 3.8 K/mm3) 0.61 [place] # (Auto) (0.11 - 0.59 K/mm3) 1.85 H Eos # (Auto) (0.0 - 0.4 K/mm3) 0.04 Baso # (Auto) (0.0 - 0.1 K/mm3) 0.00 Add Manual Diff (CRITERIA DIFF/SCN) MAN DIFF INDICATED Total Counted (100 #CELLS) 100 Immature Gran [...] H Ethan Cells (NONE ON SCAN) FEW Microbiology: Date/Time Procedure - Status Source Growth 04/27 1956 Blood Culture - ORD BLOOD 04/27 1956 Blood Culture - ORD BLOOD Recent Impressions:RADIOLOGY - XR ABDOMEN 1 V 04/27 2010 Report Impression - Status: SIGNED Entered: 04/27/20192046 Impression: Appearance of the abdomen is nearly nondiagnostic secondary topatient's habitus. No definite prominent small bowel dilation isvisualized.Impression By: [email or web address] - Lorena Valderrama M.D.RADIOLOGY - XR CHEST 1 V 04/27 2033 Report Impression - Status: SIGNED Entered: 04/27/20192108 IMPRESSION:No definite consolidation. Question vascular congestion, evaluationlimited by low lung volumesNonspecific prominence of the upper mediastinumImpression By: GreggSR31 Mildred Valderrama M.D. ECG #1 InterpretationDate 04/27/19Interpreted by ED physicianRate 109ECG Q-T-ST - SD Non-specific ST changesRhythm Tachycardia Portions of this section were scribed by Liat Bennett on 04/27/19 at 2036 Re-Evaluation MDM )( Re-Evaluation/Progress #1Text/Dict NotePt is now receiving 4th unit of PRVCs. No distress.Time of Re-Eval 2013)( Re-Eval Status Improved Re-Evaluation/Progress #2Text/Dict NoteReviewed labs and imaging w/ pt. Offered pt admission for further care and evaluation. All questions and concerns addressed. Pt is agreeable w/ the plan ofcare. Time of Eval 2036Re-Eval Status Unchanged ED CourseMedication(s) OrderedMedication(s) Ordered:Antineoplastic Agents Sig/Ever Start time Last Medication Dose Route Stop Time Status Admin Octreotide Acetate 500 MCG .[id number] ONE 04/27 2000 CKD Sodium Chloride 249 ML IV 04/28 0829 Electrolytic, Caloric, And Stephen Sig/Ever Start time Last Medication Dose Route Stop Time Status Admin Calcium Gluconate 1,000 MG X1ED STA 04/27 2106 DC 04/27 Sodium Chloride 100 ML IV 04/275 2133 Gastrointestinal Drugs Sig/Ever Start time Last Medication Dose Route Stop Time Status Admin Pantoprazole Sodium 80 MG X1ED STA 04/27 1946 AC Sodium Chloride 100 ML IV 04/28 0545 ConsultationConsultation Referral/Consult Name Sandy South MD Customer Program Manager Called Gastroenterology Requested Call Time 2014 Requested Call Date 04/27/19 Call Returned Call returned Call Returned Time 2014 Call Returned Date 04/27/19 Customer Program Manager Agrees with eval, Agrees with plan Free Text Consult NotesNo emergent endoscopy plan Portions of this section were scribed by Liat Bennett on 04/27/19 at 2036 Patient Discharge Departure Vital Signs/ConditionVital SignsFirst Documented: Result Date Time Pulse Ox 100 [...] signs available at the time of this entry have been reviewed. Condition Stable Clinical ImpressionClinical ImpressionPrimary Impression: Upper GI bleedSecondary Impressions: Hemorrhagic shock, Metabolic acidosis, Symptomatic anemiaTime of Impression 2037 Disposition DecisionAdmit Admit Physician Name Jenny Cruz MD Admit Physician Hospitalist Request Time 2037 Request Date 04/27/19 )( Admission Accepts Yes )( Accepted Time 2037 )( Accepted Date 04/27/19 Call Information will see patient, agrees with eval, agrees with plan Critical CareTime Spent (minutes): 60Services Performed Patient management by me, Time spent at bedside, Reviewing test results, Reviewing imaging, Discussing patient care, Documentation in record, Time with fam/surrogateSeparately billable procedures excluded from time.Patient was critically ill due to:GI bleedMy treatment and management were:blood transfusion continued CC Note 1Total critical care time [60] minutes. Total critical care time documented does not include time spent on separately billed procedures or the services of residents, students, nurses or physician assistants. I personally saw and examined the patient. I have reviewed all diagnostic interpretations and treatment plans as written. I was present for the gonzalez portions of any proceduresperformed and the inclusive time noted in any critical care statement. Critical care time includes patient management by me, time spent at the patients bedside,time to review lab and imaging results, discussing patient care, documentation in the medical record, and time spent with the family or caregiver. CC Note 2The high probability of sudden, clinically significant deterioration in the patient's condition required the highest level of my preparedness to intervene urgently. The services I provided to this patient were to treat and/or prevent clinically significant deterioration that could result in severe disability or . Services included the following: chart data review, reviewing nursing notes and/or old charts, documentation time, senior health consultant collaboration regarding findings and treatment options, medication orders and management, direct patient care, re-evaluations, vital sign assessments and ordering, interpreting and reviewing diagnostic studies/lab tests. Aggregate critical care time was [60] minutes, which includes only time during which I was engaged in work directly related to the patient's care, as describedabove, whether at the bedside or elsewhere in the Emergency Department. It did not include time spent performing other reported procedures or the services of residents, students, nurses or physician assistants. Supervising Physician Note Scribe StatementLiat Bennett, 04/27/192015, scribing for and in the presence of [Oscar Mcleod].Signed By: Liat Bennett, 04/27/192015 Provider Scribed StatementI personally performed the services described in this documentation and reviewedthe documentation that was dictated to the scribe(s) in my presence, and it accurately records my words and actions. Oscar Mcleod, 04/27/19 Portions of this section were scribed by Liat Bennett on 04/27/19 at 2037 at 2201RPT #:[id number] OF REPORTColumbus Community Hospital department [id number] AVAvailable for patient [id number]
[2023-06-27 08:40] LABS: Absolute Lymphocytes (CBC) 0.4 K/uL (0.7-4.9); Hematocrit 27.9 % (36.0-45.0); Lymphocytes % 12.2 % (15.3-44.8); MCV 86.7 fL (80-100); MPV 8.9 fL (7.6-11.3); Platelets 97 thou/uL (152-406); RBC Red Blood Cell Count 3.22 M/uL (3.86-4.86)
[2023-06-27 09:00] LABS: Potassium 3.6 mEq/L (3.5-5.1); Troponin High Sensitivity 28.4 pg/mL (<58.9)
[2023-06-27 09:43] LABS: Platelet Estimate DECR
[2023-06-27 09:44] LABS: Anisocytosis 1+; Blood Morphology Comment NOTED (NOT SEEN)
--- NOTE | 2023-06-27 10:55 | RAD REPORT ---
EXAM DESCRIPTION: [place] Single View06/27/2023 10:10 am CLINICAL HISTORY: Shortness of breath COMPARISON: June 06, 2020. FINDINGS: Cardiac silhouette remains enlarged secondary to a combination of cardiomegaly and pericar dial effusion Right pleural effusion appears diminished since prior exam. There may be small left pleural effusion Lungs appear clear of acute infiltrate
--- NOTE | 2023-06-27 12:18 | ER ---
Nurse's Notes [facility] Name[facility] Age: 52 yrs Sex: Female : 1970 Arrival Date: 06/27/2023 Time: 07:59 Bed 6 Private MD: Diagnosis: Heart failure, unspecified Presentation: 06/27 08:03 Chief complaint: EMS states: Pt called EMS for difficulty breathing, pt found breathing ph 32 times per minute, appeared anxious, reports being seen recently in ED and dx w/ pericarditis, also reports hx of cirrhosis, room air Spo2 upon arrival to ED 97%. Coronavirus screen: Vaccine status: Patient reports receiving the 1st dose of the Covid vaccine. Ebola Screen: No symptoms or risks identified at this time. Initial Sepsis Screen: Does the patient meet any 2 criteria? RR > 20 per min. Does the patient have a suspected source of infection? No. Patient's initial sepsis screen is negative. Risk Assessment: Do you want to hurt yourself or someone else? Patient reports no desire to harm self or others. 08:03 Method Of Arrival: EMS: [facility] 08:03 Acuity: CASI 2 ph 08:08 Onset of symptoms was June 27, 2023. ph Triage Assessment: 08:06 General: Appears in no apparent distress. Behavior is calm, cooperative, Denies fever. ph Pain: Denies pain. Neuro: Level of Consciousness is awake, alert, obeys commands, Oriented to person, place, time, situation. Cardiovascular: Reports syncope, Denies chest pain, Capillary refill < 3 seconds in bilateral fingers Patient's skin is warm and dry. Rhythm is sinus tachycardia. Respiratory: Reports shortness of breath at rest Airway is patent Respiratory effort is labored, Respiratory pattern is tachypnea. GI: wound noted to mid abdomen, pt reports having hernia repair approx 4 years ago and states that the wound has been there since. : No signs and/or symptoms were reported regarding the genitourinary system. Derm: Skin is pink, warm \T\ dry. Musculoskeletal: Circulation, motion, and sensation intact. Range of motion: intact in all extremities. Historical: - Allergies: 08:06 No Known Allergies; ph - PMHx: 08:06 Anemia; Cirrhosis; esophageal varices; Hernia; second one; possible htn; ph - PSHx: 08:06 hernia repair (le); ph - Immunization history:: Adult Immunizations unknown. - Social history:: Smoking status: Patient reports the use of cigarette tobacco products, smokes one-half pack cigarettes per day. Screenin:08 [facility] ED Fall Risk Assessment (Adult) History of falling in the last 3 months, ph including since admission No falls in past 3 months (0 pts) Confusion or Disorientation No (0 pts) Intoxicated or Sedated No (0 pts) Impaired Gait No (0 pts) Mobility Assist Device Used No (0 pt) Altered Elimination No (0 pt) Score/Fall Risk Level 0 - 2 = Low Risk Oriented to surroundings, Maintained a safe environment. Abuse screen: Denies threats or abuse. Denies injuries from another. Nutritional screening: No deficits noted. Tuberculosis screening: No symptoms or risk factors identified. Assessment: 08:50 General: SEE TRIAGE ASSESSMENT . ph 08:56 Reassessment: Patient appears in no apparent distress at this time. Patient and/or ph family updated on plan of care and expected duration. Pain level reassessed. 09:56 Reassessment: Patient appears in no apparent distress at this time. No changes from kc6 previously documented assessment. Patient and/or family updated on plan of care and expected duration. Pain level reassessed. Patient is alert, oriented x 3, equal unlabored respirations, skin warm/dry/pink. Vital Signs: 08:03 BP 115 / 74; Pulse 102; Resp 28; Temp 97.8; Pulse Ox 97% on R/A; Weight 74.84 kg; ph Height 5 ft. 5 in. ; 08:57 BP 121 / 89; Pulse 101; Resp 22; Pulse Ox 98% on 2 lpm NC; ph 10:19 BP 115 / 82; Pulse 100; Resp 18 S; Pulse Ox 98% on R/A; kc6 12:00 BP 112 / 78; Pulse 94; Resp 20; Pulse Ox 97% on 2 lpm NC; ph 13:30 BP 109 / 76; Pulse 99; Resp 24; Pulse Ox 97% on 2 lpm NC; ph 08:03 Body Mass Index 27.46 (74.84 kg, 165.1 cm) ph ED Course: 08:01 Patient arrived in ED. kc6 08:01 Tom Romo DO is Attending Physician. ms3 08:03 Tierney, Maliha, RN is Primary Nurse. ph 08:06 Triage completed. ph 08:08 Arm band placed on Patient placed in an exam room, on a stretcher. ph 08:08 Patient has correct armband on for positive identification. Bed in low position. Call light in reach. Side rails up X 1. Client placed on continuous cardiac and pulse oximetry monitoring. NIBP monitoring applied. 08:45 Initial lab(s) drawn, by ut, sent to lab. Inserted saline lock: 22 gauge in right ph antecubital area, using aseptic technique. Blood collected. 10:14 Chest Single View In Process Unspecified. EDMS 12:17 Tom Romo DO is Hospitalizing Provider. ms3 12:17 Alexis Ma MD is Hospitalizing Provider. ms3 13:25 Abdomen In Process Unspecified. EDMS 13:25 Thorax Wo Con In Process Unspecified. EDMS 13:31 No provider procedures requiring assistance completed. Patient admitted, IV remains in ph place. 06/28 12:30 IV discontinued, intact, bleeding controlled, No redness/swelling at site. Pressure ll1 dressing applied. 12:35 Inserted saline lock: 22 gauge in left forearm, using aseptic technique. ll1 Administered Medications: No medications were administered Medication: 06/27 08:08 VIS not applicable for this client. ph Outcome: 12:17 Decision to Hospitalize by Provider. ms3 15:07 Admitted to ER Hold. Please see [facility] for further documentation. ph 15:07 Condition: stable 15:07 Instructed on the need for admit, 06/28 16:44 Patient left the ED. ll1 Signatures: Dispatcher [employer] EDNH Maliha Tierney, RN RN Rocky Sanders, RN RN ll1 Tom Romo DO DO ms3 Tea Beasley, RN RN kc6
--- NOTE | 2023-06-27 12:18 | EDPHYS ---
Physician Documentation [facility] Name: Amauri Miller Age: 52 yrs Sex: Female : 1970 Arrival Date: 06/27/2023 Time: 07:59 Bed 6 Private MD: ED Physician Tom Romo HPI: 06/27 08:02 This 52 yrs old Female presents to ER via Unassigned with complaints of ms3 Shortness of breath. 08:02 52-year-old female with past medical history of liver cirrhosis presents emergency ms3 department via [facility] for shortness of breath that is been ongoing for 3 months. Patient states today she panicked as she lives alone. Patient denies any nausea, vomiting, pain. Patient denies any alleviating or inciting factors. Historical: - Allergies: 08:06 No Known Allergies; ph - PMHx: 08:06 Anemia; Cirrhosis; esophageal varices; Hernia; second one; possible htn; ph - PSHx: 08:06 hernia repair (le); ph - Immunization history:: Adult Immunizations unknown. - Social history:: Smoking status: Patient reports the use of cigarette tobacco products, smokes one-half pack cigarettes per day. ROS: 08:02 Constitutional: Negative for fever, and chills. Neck: Negative for injury, pain, and ms3 swelling, Cardiovascular: Negative for chest pain, and palpitations. 08:02 Respiratory: Negative for shortness of breath, cough, wheezing, and pleuritic chest pain, Abdomen/GI: Negative for abdominal pain, nausea, vomiting, diarrhea, and constipation, MS/Extremity: Negative for injury and deformity, Skin: Negative for injury, rash, and discoloration, 08:02 Respiratory: Positive for shortness of breath, 08:02 All other systems are negative, Exam: 08:02 Constitutional: This is a well developed, well nourished patient who is awake, alert, ms3 and in no acute distress. Head/Face: Normocephalic, atraumatic. Neck: Trachea midline, no cervical lymphadenopathy. Supple, full range of motion without nuchal rigidity, or vertebral point tenderness. No Meningismus. Chest/axilla: Normal chest wall appearance and motion. Nontender with no deformity. Respiratory: Lungs have equal breath sounds bilaterally, clear to auscultation and percussion. No rales, rhonchi or wheezes noted. No increased work of breathing, no retractions or nasal flaring. Abdomen/GI: Soft, non-tender, with normal bowel sounds. No distension or tympany. No guarding or rebound. No evidence of tenderness throughout. Skin: Warm, dry with normal turgor. Normal color with no rashes, no lesions, and no evidence of cellulitis. MS/ Extremity: Pulses equal, no cyanosis. Neurovascular intact. Full, normal range of motion. 08:02 Cardiovascular: Rate: tachycardic, Rhythm: regular, Pulses: no pulse deficits are appreciated, Heart sounds: normal, normal S1and S2, 11:41 ECG was reviewed by the Attending Physician. ms3 Vital Signs: 08:03 BP 115 / 74; Pulse 102; Resp 28; Temp 97.8; Pulse Ox 97% on R/A; Weight 74.84 kg; ph Height 5 ft. 5 in. ; 08:57 BP 121 / 89; Pulse 101; Resp 22; Pulse Ox 98% on 2 lpm NC; ph 10:19 BP 115 / 82; Pulse 100; Resp 18 S; Pulse Ox 98% on R/A; kc6 12:00 BP 112 / 78; Pulse 94; Resp 20; Pulse Ox 97% on 2 lpm NC; ph 13:30 BP 109 / 76; Pulse 99; Resp 24; Pulse Ox 97% on 2 lpm NC; ph 08:03 Body Mass Index 27.46 (74.84 kg, 165.1 cm) ph MDM: 08:01 Patient medically screened. ms3 08:02 Differential diagnosis: Anxiety Reaction Chronic Obstructive Pulmonary Disease ms3 pneumonia, pulmonary edema. 17:21 Data reviewed: vital signs, nurses notes, lab test result(s), EKG, radiologic studies, ms3 and as a result, I will admit patient. Consideration of Admission/Observation Patient was admitted/placed on observation. Management of patient was discussed with the following: Hospitalist: . Independent interpretation of the following test(s) in the Emergency Department EKG: See my EKG interpretation above surveillance system monitor: rate is 112 beats/min, Rhythm is sinus tachycardia, with no ectopy, Interpretation: tachycardia. Historians other than the Patient: EMS: . Counseling: I had a detailed discussion with the patient and/or guardian regarding the historical points, exam findings, and any diagnostic results supporting the discharge/admit diagnosis, lab results, radiology results, the need for further work-up and treatment in the hospital. 06/27 08:37 Order name: Basic Metabolic Panel; Complete Time: 10:35 EDMS 06/27 08:37 Order name: Troponin High Sensitivity; Complete Time: 10:35 EDMS 06/27 08:37 Order name: NT PRO-BNP; Complete Time: 10:35 EDMS 06/27 08:37 Order name: CBC with Automated Diff; Complete Time: 10:35 EDMS 06/27 08:46 Order name: Manual Differential; Complete Time: 10:35 EDMS 06/27 13:15 Order name: Ammonia EDMS 06/27 13:21 Order name: Magnesium EDMS 06/27 13:21 Order name: Phosphorus EDMS 06/27 13:21 Order name: T4 Free EDMS 06/27 13:21 Order name: Thyroid Stimulating Hormone EDMS 06/27 13:21 Order name: Urinalysis w/ reflexes EDMS 06/27 13:22 Order name: Basic Metabolic Panel EDMS 06/27 13:22 Order name: Basic Metabolic Panel EDMS 06/27 13:22 Order name: CBC with Automated Diff EDMS 06/27 13:22 Order name: CBC with Automated Diff EDMS 06/27 13:22 Order name: Lipid Profile EDMS 06/27 13:22 Order name: Lipid Profile EDMS 06/27 17:44 Order name: Urinalysis w/ reflexes EDMS 06/28 06:43 Order name: CBC Smear Scan EDMS 06/27 09:43 Order name: Chest Single View; Complete Time: 11:40 EDMS 06/27 13:15 Order name: Abdomen ; Complete Time: 14:49 EDMS 06/27 13:15 Order name: Thorax Wo Con; Complete Time: 14:49 EDMS 06/27 13:25 Order name: Echo with Doppler EDMS 06/27 08:13 Order name: EKG; Complete Time: 11:47 ms3 06/27 08:13 Order name: Cardiac monitoring; Complete Time: 08:15 ms3 06/27 08:13 Order name: EKG - Nurse/Tech; Complete Time: 08:30 ms3 06/27 08:13 Order name: IV Saline Lock; Complete Time: 08:44 ms3 06/27 08:13 Order name: Labs collected and sent; Complete Time: 08:44 ms3 06/27 08:13 Order name: O2 Per Protocol; Complete Time: 08:15 ms3 06/27 08:13 Order name: O2 Sat Monitoring; Complete Time: 08:15 ms3 EC:41 Rate is 102 beats/min. Rhythm is regular. IL interval is normal. QRS interval is ms3 prolonged. Clinical impression: NSR w/ Non-specific ST/T Changes and Non-specific intraventricular block. Interpreted by me. Reviewed by me. Administered Medications: No medications were administered Disposition Summary: 06/27/23 12:17 Hospitalization Ordered Notes: Hospitalization Status: Inpatient Admission ms3 Provider: Alexis Ma ms3 Condition: Stable ms3 Problem: new ms3 Symptoms: are unchanged ms3 Bed/Room Type: Standard ms3 Location: Telemetry/MedSurg (Inpatient)(06/28/23 14:46) em1 Room Assignment: [facility](06/28/23 14:46) em1 Diagnosis - Heart failure, unspecified ms3 Forms: - Medication Reconciliation Form ms3 - SBAR form ms3 - Leadership Thank You Letter ms3 Signatures: Dispatcher [employer] EDMS Rafael Tomlinson em1 Maliha Tierney, RN Gladys Rockwell ph, RN Radha Baum RN RN ap3 Tom Romo DO DO ms3 Liliana Young RN RN pf1 Stacie Rolon rv1 Corrections: (The following items were deleted from the chart) 11:56 11:47 Chest Single View+RAD.RAD.BRZ ordered. EDMS EDMS 13:27 11:47 BASIC METABOLIC PANEL+C.LAB.BRZ ordered. EDMS EDMS 13:27 11:47 CBC+H.LAB.BRZ ordered. EDMS EDMS 13:27 11:47 Troponin High Sensitivity+C.LAB.BRZ ordered. EDMS EDMS 13:27 11:47 PROBNP+C.LAB.BRZ ordered. EDMS EDMS 14:54 12:17 Telemetry/MedSurg (observation) ms3 ap3 14:54 12:17 ms3 ap3 19:25 14:54 ERHOLD- ap3 rv1 19:26 14:54 [facility] ER HOLD ap3 rv1 19:26 19:25 rv1 rv1 19:28 19:26 430 rv1 cg 20:55 19:26 Telemetry/MedSurg (Inpatient) rv1 pf1 20:55 19:28 cg pf1 06/28 14:46 06/27 20:55 [facility] ER HOLD pf1 em1 06/28 14:46 06/27 20:55 ERHOLD- pf1 em1
[2023-06-27] MEDS ORDERED: LABETALOL 20 MG/4ML SYRINGE IV PRN (13:17)
[2023-06-27] MEDS: FUROSEMIDE 40 MG/4 ML VIAL IV SCH ×2 (13:30→17:00)
--- NOTE | 2023-06-27 13:31 | P.HP ---
Certification for Inpatient Patient admitted to: Inpatient With expected LOS: >2 Midnights Patient will require the following post-hospital care: None Practitioner: I am a practitioner with admitting privileges, knowledge of patient current condition, hospital course, and medical plan of care. Services: Services provided to patient in accordance with Admission requirements found in Title 42 Section 412.3 of the Code of Federal Regulations Patient History Date of Service: 06/27/23 Reason for admission: Shortness of breath. History of Present Illness: Patient is a 52-year-old female with a past medical history significant for anemia, cirrhosis, hypertension, nicotine dependence who presents with complaint of shortness of breath that has been ongoing for the past couple of months. Patient is a poor historian and unable to provide accurate history. Patient reported that she had "fluid drained from her lungs" 2 weeks ago at [facility] and ever since then patient has been having worsening shortness of breath with exertion. Patient also reports right rib cage pain onset 3 days ago, rated pain as 10/10 in severity and described pain as aching in quality. Patient reported associated signs and symptoms of abdominal distention, generalized swelling, generalized malaise, cough and orthopnea. Patient denies any other signs and symptoms. Symptoms are aggravated by exertion or relieved by nothing. Patient decided to present to the hospital due to worsening symptoms. Allergies No Known Allergies Allergy (Verified 02/10/19 18:00) Home Medications: ondansetron HCL [Zofran] 4 mg PO Q8H PRN 04/06/18 Melatonin/Pyridoxine [Melatonin 5 mg Tablet] 10 mg PO BEDTIME 09/10/18 Pyridoxine [Vitamin B-6*] 50 mg PO BID 09/10/18 Ferrous Sulfate [Iron] 325 mg PO BID #60 tablet 09/27/18 Folic Acid 1 mg PO DAILY #30 tablet 09/27/18 Pantoprazole [Protonix Tab*] 40 mg PO BIDAC #60 tab 09/27/18 Rifaximin [Xifaxan] 550 mg PO BID #60 tablet 09/27/18 Thiamine HCl [Vitamin B-1*] 100 mg PO DAILY #30 tablet 09/27/18 Lactulose [Cephulac*] 30 ml PO TID 02/10/19 Midodrine HCl [Proamatine*] 5 mg PO BID 02/10/19 Potassium 1 tab PO DAILY 02/10/19 Spironolactone [Aldactone*] 50 mg PO BID 02/10/19 - Past Medical/Surgical History Diabetic: No -: Severe alcoholic cirrhosis -: Severe abdominal ascites with Multiple paracentesis -: History of GI bleed with esophageal varices -: Portal hypertensive gastropathy -: Anemia of chronic disease with iron deficiency -: anemia -: esophageal varices -: hernia -: Multiple paracentesis -: Hernia repair -: Esophageal banding with multiple EGD's Psychosocial/ Personal History: Patient is single. She has 3 children. She does not work. - Family History Father -: Liver disease Notes: patient adopted, does not any history of her parents - Social History Smoking Status: Current every day smoker Counseled patient to stop smoking for: less than 10 minutes Smoking therapy provided: Yes Patient receptive to therapy: Yes Alcohol use: No CD- Drugs: No Caffeine use: Yes Place of Residence: Home Review of Systems General: Malaise Eyes: Unremarkable ENT: Unremarkable Respiratory: Cough, Dry, Shortness of Breath, SOB with Excertion Cardiovascular: Orthopnea Gastrointestinal: Distention Genitourinary: Unremarkable Musculoskeletal: Other (right rib cage pain, generalized edema) Integumentary: Unremarkable Neurological: Unremarkable Lymphatics: Unremarkable Physical Examination - Physical Exam General: Alert, Oriented x3, Cooperative, Mild distress HEENT: Atraumatic, PERRLA, Mucous membr. moist/pink, EOMI, Sclerae nonicteric Neck: Supple, 2+ carotid pulse no bruit, No LAD, Without JVD or thyroid abnormality Respiratory: Diminished Cardiovascular: Regular rate/rhythm, Normal S1 S2, Edema Capillary refill: <2 Seconds Gastrointestinal: Normal bowel sounds, Distended, Tenderness Musculoskeletal: No clubbing, No tenderness, Swelling Integumentary: No rashes, Tenderness/swelling Neurological: Normal speech, Normal strength at 5/5 x4 extr, Normal tone, Normal affect Lymphatics: No axilla or inguinal lymphadenopathy - Studies Laboratory Data (last 24 hrs) 06/27/23 06/27/23 06/27/23 08:25 08:25 08:13 WBC 3.20 L Cancelled Hgb 9.0 L Cancelled Hct 27.9 L Cancelled Plt Count 97 L Cancelled Sodium 134 L Potassium 3.6 BUN 16 Creatinine 1.16 H Glucose 106 06/27/23 08:13 WBC Hgb Hct Plt Count Sodium Cancelled Potassium Cancelled BUN Cancelled Creatinine Cancelled Glucose Cancelled Assessment and Plan - Plan --Suspected acute systolic or diastolic CHF. No recent echo on file. Patient reports a recent diagnosis of CHF. Patient placed on diuretics. Echocardiogram pending to assess cardiac structures and function. Chief Deputy Coroner consulted. Daily weight and strict I/O. We will await further recommendation from financial recruiter. --Pericardial effusion. Noted on CT imaging. Echocardiogram pending for further evaluation. Cardiology on board. Continue diuresis with Lasix. Further management per financial recruiter. --Decompensated liver cirrhosis. CT imaging indicates Small to moderate amount of ascites. Patient has a history of multiple paracentesis. Interventional radiology consulted for paracentesis. Continue lactulose and diuresis with Lasix. Continue home medication. --Nicotine dependence. Patient placed on nicotine patch and counseled on tobacco cessation. -- Right rib cage pain. Patient reported that she had thoracentesis about 2 weeks ago at [facility]. CT imaging indicates Small to moderate right and small left pleural effusions. Continue diuresis with Lasix. We will manage pain with current pain medication regimen. --Hypertension. Stable. Continue home medication. --GERD. Continue Protonix. --Iron deficiency anemia. Continue ferrous sulfate. --Insomnia. Continue home medication. --DVT prophylaxis with Lovenox subQ. Discharge Plan: Home Plan to discharge in: Greater than 2 days - Advance Directives Does patient have a Living Will: No Does patient have a Durable POA for Healthcare: No - Code Status/Comfort Care Code Status Assessed: Yes Physician Review: Patient Assessed, Agree with Above Assessment and Plan Critical Care: No
--- NOTE | 2023-06-27 13:45 | RAD REPORT ---
EXAM DESCRIPTION: CT - Thorax Wo Con - 06/27/2023 1:24 pm CLINICAL HISTORY: sob COMPARISON: none TECHNIQUE: Computed axial tomography of the chest was obtained. Contrast was not requested. All CT scans are performed using dose optimization technique as appropriate and may include automated exposure control or mA/KV adjustment according to patient size. FINDINGS: The evaluation of mediastinum, zhanna and vessels is limited secondary to lack of IV contras t administration. Small to moderate right pleural effusion without significant change. Small left pleural effusion. Right basilar atelectasis. Cardiomegaly. Moderate pericardial effusion without significant change No mediastinal or hilar lymphadenopathy IMPRESSION: Moderate pericardial effusion Small to moderate right and small left pleural effusions
--- NOTE | 2023-06-27 13:45 | RAD REPORT ---
EXAM DESCRIPTION: CT - Abdomen Pelvis Wo Contrast - 06/27/2023 1:23 pm CLINICAL HISTORY: Abdominal pain COMPARISON: March 2023 TECHNIQUE: Computed axial tomography of the abdomen and pelvis was obtained. IV and oral contrast we re not requested. All CT scans are performed using dose optimization technique as appropriate and may include automated exposure control or mA/KV adjustment according to patient size. FINDINGS: The evaluation of solid organs, vessels and bowel is limited secondary to the lack of con trast administration. Cirrhotic liver. TIPS in place. Cholelithiasis. Spleen, pancreas, adrenals and kidneys grossly normal. No adnexal mass. Diffuse edema throughout the subcutaneous tissues. Small to moderate amount of ascites IMPRESSION: Cirrhosis with anasarca
[2023-06-27] MEDS ORDERED: IPRATROPIUM BROM 0.5MG/2.5ML NEB SCH (14:00)
[2023-06-27] MEDS ORDERED: ALBUTEROL 2.5 MG/3 ML NEB SOL NEB SCH (14:00)
[2023-06-27] MEDS: LACTULOSE 20 GM/30 ML UCUP PO SCH ×2 (14:00→21:00)
[2023-06-27] MEDS ORDERED: ALBUTEROL 2.5 MG/3 ML NEB SOL ONE ×2 (14:36→19:58)
[2023-06-27] MEDS ORDERED: IPRATROPIUM BROM 0.5MG/2.5ML ONE ×2 (14:36→19:58)
[2023-06-27] MEDS ORDERED: HYDROCODONE/APAP 5/325 MG TAB ONE ×2 (14:58→21:21)
[2023-06-27] MEDS ORDERED: LACTULOSE 20 GM/30 ML UCUP ONE ×2 (14:59→21:21)
[2023-06-27] MEDS ORDERED: FUROSEMIDE 40 MG/4 ML VIAL ONE (14:59)
[2023-06-27] MEDS: NICOTINE 21 MG/PAT TD SCH (15:00)
[2023-06-27] MEDS: HYDROCODONE/APAP 5/325 MG TAB PO PRN ×2 (15:00→21:11)
[2023-06-27 17:42] LABS: Specific Gravity 1.012 (1.005-1.030); Urine Bacteria None Seen /HPF (<20); Urine Bilirubin NEGATIVE (Negative); Urine Blood 1+ (Negative); Urine Clarity Extremely Turbid (Clear); Urine Color Yellow (Yellow); Urine Glucose NEGATIVE (Negative); Urine Mucus Slight /HPF (None Seen); Urine Protein NEGATIVE (Negative); Urine RBC 21-50 /HPF (None Seen); Urine Trichomonas Present /HPF (None Seen); Urine Urobilinogen 1+ (Normal); Urine pH 6.5 (5.0-7.0)
[2023-06-28] MEDS: MORPHINE 2 MG/ML SYR IV PRN ×2 (02:44→09:30)
[2023-06-28] MEDS: HYDROCODONE/APAP 5/325 MG TAB PO PRN ×2 (04:39→12:29)
[2023-06-28] MEDS ORDERED: ALBUTEROL 2.5 MG/3 ML NEB SOL ONE (04:50)
[2023-06-28] MEDS ORDERED: HYDROCODONE/APAP 5/325 MG TAB ONE ×2 (04:50→12:19)
[2023-06-28 06:01] LABS: Absolute Lymphocytes (CBC) 0.4 K/uL (0.7-4.9); Hematocrit 27.1 % (36.0-45.0); Lymphocytes % 13.4 % (15.3-44.8); MCV 85.9 fL (80-100); MPV 9.2 fL (7.6-11.3); Platelets 96 thou/uL (152-406); RBC Red Blood Cell Count 3.16 M/uL (3.86-4.86)
[2023-06-28 06:11] LABS: Potassium 3.5 mEq/L (3.5-5.1)
[2023-06-28 06:43] LABS: Anisocytosis 1+; Blood Morphology Comment NOTED (NOT SEEN); Platelet Estimate DECR; White Blood Cell Scan OK (OK)
[2023-06-28] MEDS ORDERED: POTASSIUM 25 MEQ EFFERV TAB PO ONE (08:14)
[2023-06-28] MEDS: ALBUTEROL 2.5 MG/3 ML NEB SOL NEB SCH ×3 (08:28→19:40)
[2023-06-28] MEDS: ENOXAPARIN 40 MG/0.4 ML SQ SCH (09:00)
[2023-06-28] MEDS: NICOTINE 21 MG/PAT TD SCH (09:00)
[2023-06-28] MEDS: FUROSEMIDE 40 MG/4 ML VIAL IV SCH ×2 (09:00→17:06)
[2023-06-28] MEDS: LACTULOSE 20 GM/30 ML UCUP PO SCH ×3 (09:00→20:56)
[2023-06-28] MEDS: ASPIRIN 81 MG CHEWABLE TABLET PO SCH (09:00)
[2023-06-28] MEDS ORDERED: ASPIRIN 81 MG CHEWABLE TABLET ONE (09:48)
[2023-06-28] MEDS ORDERED: NICOTINE 21 MG/PAT TD ONE (09:48)
[2023-06-28] MEDS ORDERED: MORPHINE 2 MG/ML SYR ONE ×2 (09:49→12:18)
[2023-06-28] MEDS ORDERED: FUROSEMIDE 40 MG/4 ML VIAL ONE (09:49)
[2023-06-28] MEDS ORDERED: LACTULOSE 20 GM/30 ML UCUP ONE (09:49)
[2023-06-28] MEDS ORDERED: POTASSIUM 25 MEQ EFFERV TAB ONE (09:49)
--- NOTE | 2023-06-28 15:24 | P.PN ---
Subjective Date of Service: 06/28/23 Chief Complaint: Shortness of breath. Subjective: Improving Patient seen sitting up at bedside. Reports improvement in shortness of breath. Continue supportive care. Review of Systems General: Weakness Eyes: Unremarkable ENT: Unremarkable Respiratory: Shortness of Breath, SOB with Excertion Cardiovascular: Unremarkable Gastrointestinal: Nausea Genitourinary: Unremarkable Musculoskeletal: Unremarkable Integumentary: Unremarkable Neurological: Weakness Lymphatics: Unremarkable Physical Examination - Vital Signs Temperature: 97.8 F Blood Pressure: 113/76 Pulse: 105 Respirations: 18 Pulse Ox (%): 94 - Physical Exam General: Alert, In no apparent distress, Oriented x3, Cooperative HEENT: Atraumatic, PERRLA, EOMI Neck: Supple, JVD not distended Respiratory: Diminished Cardiovascular: Regular rate/rhythm, Normal S1 S2, Edema Capillary refill: <2 Seconds Gastrointestinal: Normal bowel sounds, No tenderness, Distended Musculoskeletal: No clubbing, No tenderness Integumentary: No rashes Neurological: Normal speech, Normal tone, Normal affect Lymphatics: No axilla or inguinal lymphadenopathy Assessment And Plan - Plan Interval Hx 06/28/23 Patient reports improvement in shortness of breath. Patient is achieving good diuresis with Lasix. Abdomen remains distended. Pending paracentesis by interventional radiology. Patient denies any chest pain. Patient reports episodes of nausea. Continue antiemetics. Continue supportive care. --DVT prophylaxis Lovenox subQ. --Suspected acute systolic or diastolic CHF. No recent echo on file. Patient reports a recent diagnosis of CHF. Patient placed on diuretics. Echocardiogram pending to assess cardiac structures and function. Drying And Winding Supervisor consulted. Daily weight and strict I/O. We will await further recommendation from print shop stenographer. --Pericardial effusion. Noted on CT imaging. Echocardiogram pending for further evaluation. Cardiology on board. Continue diuresis with Lasix. Further management per print shop stenographer. --Decompensated liver cirrhosis. CT imaging indicates Small to moderate amount of ascites. Patient has a history of multiple paracentesis. Interventional radiology consulted for paracentesis. Continue lactulose and diuresis with Lasix. Continue home medication. --Nicotine dependence. Patient placed on nicotine patch and counseled on tobacco cessation. -- Right rib cage pain. Patient reported that she had thoracentesis about 2 weeks ago at [facility]. CT imaging indicates Small to moderate right and small left pleural effusions. Continue diuresis with Lasix. We will manage pain with current pain medication regimen. --Hypertension. Stable. Continue home medication. --GERD. Continue Protonix. --Iron deficiency anemia. Continue ferrous sulfate. --Insomnia. Continue home medication. --DVT prophylaxis with Lovenox subQ. Discharge Plan: Home Plan to discharge in: Greater than 2 days Physician Review: Patient Assessed, Agree with Above Assessment and Plan Critical Care: No
--- NOTE | 2023-06-28 20:07 | RAD REPORT ---
EXAM DESCRIPTION: RAD - Chest Single View - 06/28/2023 6:00 am CLINICAL HISTORY: 52 years Female, Shortness of breath COMPARISON: CT chest and chest x-ray performed on 06/06/2023 TECHNIQUE: Single portable x-ray view of the chest performed on 06/28/2023 at 5:56 AM FINDINGS: The lungs are well expanded and are grossly clear. There may be a trace residual right ple ural effusion. No focal airspace consolidation is identified. There is no evidence of a pneumothorax. The cardiac silhouette is stable and is enlarged. A pericardial effusion is not excluded. The mediastinal contours are normal. No acute osseous abnormality is identified. No focal soft tissue abnormalities are seen. Lines and tubes: None. IMPRESSION: 1. No definite acute intrathoracic disease. There may be a trace residual right pleura l effusion. 2. Stable enlargement of the cardiac silhouette. A pericardial effusion is not excluded. Electronically signed by: Nhi Mcgowan DO 06/28/2023 06:38 AM [place] Due to temporary technical issues with the PACS/Fluency reporting system, reports are being signed by the in house radiologists without review as a courtesy to insure prompt reporting. The interpreting radiologist is fully responsible for the content of the report.
[2023-06-28 21:18] LABS: Magnesium 1.9 mg/dL (1.6-2.4); Phosphorus 3.9 mg/dL (2.5-4.9)
[2023-06-28 21:24] LABS: Thyroid Stimulating Hormone 13.1 uIU/mL (0.358-3.740)
[2023-06-29] MEDS: MELATONIN 5 MG TABLET PO SCH ×2 (00:11→21:27)
[2023-06-29] MEDS: HYDROCODONE/APAP 5/325 MG TAB PO PRN (00:11)
[2023-06-29] MEDS: ALBUTEROL 2.5 MG/3 ML NEB SOL NEB SCH ×4 (02:33→20:00)
[2023-06-29] MEDS: ONDANSETRON 4 MG/2 ML VIAL IV PRN (06:11)
[2023-06-29] MEDS: MORPHINE 2 MG/ML SYR IV PRN ×2 (06:11→11:58)
[2023-06-29] MEDS: NICOTINE 21 MG/PAT TD SCH (08:15)
[2023-06-29] MEDS: ENOXAPARIN 40 MG/0.4 ML SQ SCH (08:16)
[2023-06-29] MEDS: ASPIRIN 81 MG CHEWABLE TABLET PO SCH (08:16)
[2023-06-29] MEDS: LACTULOSE 20 GM/30 ML UCUP PO SCH ×3 (08:16→21:27)
[2023-06-29] MEDS: FUROSEMIDE 40 MG/4 ML VIAL IV SCH ×2 (08:17→16:20)
[2023-06-29 08:20] LABS: Absolute Lymphocytes (CBC) 0.2 K/uL (0.7-4.9); Hematocrit 27.1 % (36.0-45.0); Lymphocytes % 7.2 % (15.3-44.8); MPV 8.9 fL (7.6-11.3); Platelets 89 thou/uL (152-406); RBC Red Blood Cell Count 3.15 M/uL (3.86-4.86)
[2023-06-29 08:33] LABS: Potassium 3.1 mEq/L (3.5-5.1)
[2023-06-29] MEDS ORDERED: POTASSIUM CL SA 10 MEQ TAB PO ONE (08:39)
--- NOTE | 2023-06-29 15:47 | P.PN ---
Subjective Date of Service: 06/29/23 Chief Complaint: Shortness of breath. Subjective: Improving Patient seen sitting up at bedside. Reports improvement in shortness of breath. Continue supportive care. Review of Systems General: Unremarkable Eyes: Unremarkable ENT: Unremarkable Respiratory: SOB with Excertion Cardiovascular: Unremarkable Gastrointestinal: Distention Genitourinary: Unremarkable Musculoskeletal: Unremarkable Integumentary: Unremarkable Neurological: Unremarkable Lymphatics: Unremarkable Physical Examination - Vital Signs Temperature: 97.2 F Blood Pressure: 101/64 Pulse: 100 Respirations: 17 Pulse Ox (%): 100 - Physical Exam General: Alert, In no apparent distress, Oriented x3, Cooperative HEENT: Atraumatic, PERRLA, EOMI Neck: Supple, JVD not distended Respiratory: Normal air movement, Diminished Cardiovascular: Regular rate/rhythm, Normal S1 S2, Edema Capillary refill: <2 Seconds Gastrointestinal: Normal bowel sounds, No tenderness, Distended Musculoskeletal: No clubbing, No tenderness Integumentary: No rashes Neurological: Normal speech, Normal tone, Normal affect Lymphatics: No axilla or inguinal lymphadenopathy Assessment And Plan - Plan Interval Hx 06/29/23 Patient reports generalized abdominal pain\swelling. Continue current pain medication regimen.. Pending paracentesis. Patient reports improvement in shortness of breath. Patient also reports that she has been having good diuresis with Lasix. Continue supportive care. 06/28/23 Patient reports improvement in shortness of breath. Patient is achieving good diuresis with Lasix. Abdomen remains distended. Pending paracentesis by interventional radiology. Patient denies any chest pain. Patient reports episodes of nausea. Continue antiemetics. Continue supportive care. --DVT prophylaxis Lovenox subQ. --Suspected acute systolic or diastolic CHF. No recent echo on file. Patient reports a recent diagnosis of CHF. Patient placed on diuretics. Echocardiogram pending to assess cardiac structures and function. Supervisor Electronic Coils consulted. Daily weight and strict I/O. We will await further recommendation from monitoring manager. --Pericardial effusion. Noted on CT imaging. Echocardiogram pending for further evaluation. Cardiology on board. Continue diuresis with Lasix. Further management per monitoring manager. --Decompensated liver cirrhosis. CT imaging indicates Small to moderate amount of ascites. Patient has a history of multiple paracentesis. Interventional radiology consulted for paracentesis. Continue lactulose and diuresis with Lasix. Continue home medication. --Nicotine dependence. Patient placed on nicotine patch and counseled on tobacco cessation. -- Right rib cage pain. Patient reported that she had thoracentesis about 2 weeks ago at [facility]. CT imaging indicates Small to moderate right and small left pleural effusions. Continue diuresis with Lasix. We will manage pain with current pain medication regimen. --Hypertension. Stable. Continue home medication. --GERD. Continue Protonix. --Iron deficiency anemia. Continue ferrous sulfate. --Insomnia. Continue home medication. --DVT prophylaxis with Lovenox subQ. Discharge Plan: Home Plan to discharge in: Greater than 2 days Physician Review: Patient Assessed, Agree with Above Assessment and Plan Critical Care: No
[2023-06-29] MEDS ORDERED: POTASSIUM 25 MEQ EFFERV TAB PO ONE (17:47)
[2023-06-29] MEDS: ACETAMINOPHEN 325 MG TABLET PO PRN (17:57)
[2023-06-30] MEDS: ALBUTEROL 2.5 MG/3 ML NEB SOL NEB SCH ×5 (02:20→19:00)
[2023-06-30 03:25] LABS: Absolute Lymphocytes (CBC) 0.4 K/uL (0.7-4.9); Hematocrit 26.9 % (36.0-45.0); Lymphocytes % 12.6 % (15.3-44.8); MCV 86.4 fL (80-100); MPV 9.1 fL (7.6-11.3); Platelets 124 thou/uL (152-406); RBC Red Blood Cell Count 3.11 M/uL (3.86-4.86)
[2023-06-30 03:41] LABS: Potassium 3.5 mEq/L (3.5-5.1)
[2023-06-30 05:50] VITALS: BMI 33.8
[2023-06-30] MEDS: ENOXAPARIN 40 MG/0.4 ML SQ SCH (07:49)
[2023-06-30] MEDS: LACTULOSE 20 GM/30 ML UCUP PO SCH ×3 (07:49→22:13)
[2023-06-30] MEDS: FOLIC ACID 1 MG TABLET PO SCH (07:50)
[2023-06-30] MEDS: ASPIRIN 81 MG CHEWABLE TABLET PO SCH (07:50)
[2023-06-30] MEDS: NICOTINE 21 MG/PAT TD SCH (07:50)
[2023-06-30] MEDS: FUROSEMIDE 40 MG/4 ML VIAL IV SCH ×2 (07:56→16:28)
[2023-06-30] MEDS ORDERED: POTASSIUM 25 MEQ EFFERV TAB PO ONE (09:00)
--- NOTE | 2023-06-30 09:57 | P.PN ---
Subjective Date of Service: 06/30/23 Chief Complaint: Shortness of breath. Subjective: No new changes, Improving Physical Examination - Vital Signs Temperature: 97.7 F Blood Pressure: 140/44 Pulse: 93 Respirations: 17 Pulse Ox (%): 100 - Physical Exam General: Alert HEENT: Atraumatic Neck: Supple Respiratory: Normal air movement Cardiovascular: Regular rate/rhythm, Normal S1 S2 Gastrointestinal: Soft and benign Musculoskeletal: No swelling Integumentary: No tenderness/swelling Neurological: Normal speech Assessment And Plan - Plan - Plan Interval Hx 06/30/23. Patient continues to have significant abdominal swelling and leg swelling. Paracentesis ordered for a.m. Continue diuretic therapy and titrate to achieve adequate volume management. 06/29/23 Patient reports generalized abdominal pain\swelling. Continue current pain medication regimen.. Pending paracentesis. Patient reports improvement in shortness of breath. Patient also reports that she has been having good diuresis with Lasix. Continue supportive care. 06/28/23 Patient reports improvement in shortness of breath. Patient is achieving good diuresis with Lasix. Abdomen remains distended. Pending paracentesis by interventional radiology. Patient denies any chest pain. Patient reports episodes of nausea. Continue antiemetics. Continue supportive care. --DVT prophylaxis Lovenox subQ. --Suspected acute systolic or diastolic CHF. No recent echo on file. Patient reports a recent diagnosis of CHF. Patient placed on diuretics. Echocardiogram pending to assess cardiac structures and function. Copping Machine Operator consulted. Daily weight and strict I/O. We will await further recommendation from vice president of human resources. --Pericardial effusion. Noted on CT imaging. Echocardiogram pending for further evaluation. Cardiology on board. Continue diuresis with Lasix. Further management per vice president of human resources. --Decompensated liver cirrhosis. CT imaging indicates Small to moderate amount of ascites. Patient has a history of multiple paracentesis. Interventional radiology consulted for paracentesis. Continue lactulose and diuresis with Lasix. Continue home medication. --Nicotine dependence. Patient placed on nicotine patch and counseled on tobacco cessation. -- Right rib cage pain. Patient reported that she had thoracentesis about 2 weeks ago at [facility]. CT imaging indicates Small to moderate right and small left pleural effusions. Continue diuresis with Lasix. We will manage pain with current pain medication regimen. --Hypertension. Stable. Continue home medication. --GERD. Continue Protonix. --Iron deficiency anemia. Continue ferrous sulfate. --Insomnia. Continue home medication. --DVT prophylaxis with Lovenox subQ. Discharge Plan: Home. Plan to discharge in: Greater than 2 days. Physician Review: Patient Assessed, Agree with Above Assessment and Plan. Critical Care: No Physician Review: Patient Assessed, Agree with Above Assessment and Plan
[2023-06-30] MEDS: ACETAMINOPHEN 325 MG TABLET PO PRN (13:27)
[2023-06-30] MEDS: MELATONIN 5 MG TABLET PO SCH (21:00)
[2023-07-01] MEDS: MORPHINE 2 MG/ML SYR IV PRN (02:15)
[2023-07-01] MEDS: ALBUTEROL 2.5 MG/3 ML NEB SOL NEB SCH ×4 (02:27→21:00)
[2023-07-01 07:25] LABS: Protime INR 1.52
[2023-07-01 07:29] LABS: Potassium 3.2 mEq/L (3.5-5.1)
[2023-07-01] MEDS: NICOTINE 21 MG/PAT TD SCH (08:20)
[2023-07-01] MEDS: FUROSEMIDE 40 MG/4 ML VIAL IV SCH ×2 (08:22→18:11)
[2023-07-01] MEDS: FOLIC ACID 1 MG TABLET PO SCH ×2 (08:22→09:37)
[2023-07-01] MEDS: ASPIRIN 81 MG CHEWABLE TABLET PO SCH ×2 (08:22→09:37)
[2023-07-01] MEDS: LACTULOSE 20 GM/30 ML UCUP PO SCH ×4 (08:22→20:58)
[2023-07-01] MEDS: ENOXAPARIN 40 MG/0.4 ML SQ SCH (08:23)
[2023-07-01] MEDS ORDERED: POTASSIUM 25 MEQ EFFERV TAB PO ONE ×2 (09:00→17:00)
--- NOTE | 2023-07-01 09:24 | RAD REPORT ---
EXAM DESCRIPTION: US - Abdomen Exam Limited - 07/01/2023 8:57 am CLINICAL HISTORY: Asciites COMPARISON: Renal Ultrasound-Complete dated 09/11/2018 FINDINGS: Only a quite small volume of ascites is present. The amount of ascites is insufficient for paracentesis at this time.
[2023-07-01] MEDS: LEVOTHYROXINE SOD 0.125 MG TAB PO SCH (09:40)
--- NOTE | 2023-07-01 12:39 | P.DS ---
Admission Date: 06/27/23 Discharge Date: 07/06/23 Disposition: ROUTINE DISCHARGE Discharge Condition: FAIR Reason for Admission: Shortness of breath. Brief History of Present Illness: 52-year-old female with a past medical history significant for anemia, cirrhosis, hypertension, nicotine dependence who presents with complaint of shortness of breath that has been ongoing for the past couple of months. Patient is a poor historian and unable to provide accurate history. Patient reported that she had "fluid drained from her lungs" 2 weeks ago at [facility] and ever since then patient has been having worsening shortness of breath with exertion. Patient also reports right rib cage pain onset 3 days ago, rated pain as 10/10 in severity and described pain as aching in quality. Patient reported associated signs and symptoms of abdominal distention, generalized swelling, generalized malaise, cough and orthopnea. Patient denies any other signs and symptoms. Symptoms are aggravated by exertion or relieved by nothing. Patient decided to present to the hospital due to worsening symptoms. - Physical Exam General: Alert, Oriented x3, Cooperative, Mild distress HEENT: Atraumatic, PERRLA, Mucous membr. moist/pink, EOMI, Sclerae nonicteric Neck: Supple, 2+ carotid pulse no bruit, No LAD, Without JVD or thyroid abnormality Respiratory: Diminished Cardiovascular: Regular rate/rhythm, Normal S1 S2, Edema Capillary refill: <2 Seconds Gastrointestinal: Normal bowel sounds, Distended, Tenderness Musculoskeletal: No clubbing, No tenderness, Swelling Integumentary: No rashes, Tenderness/swelling Neurological: Normal speech, Normal strength at 5/5 x4 extr, Normal tone, Normal affect Lymphatics: No axilla or inguinal lymphadenopathy Hospital Course: Assessment And Recommendations: Acute on chronic systolic heart failure exacerbation ECHO ordered, No recent echo on file. Patient reports a recent diagnosis of CHF. Patient placed on diuretics. . Juice Tester consulted. Daily weight and strict I/O. We will await further recommendation from plant inspector. 07/04 N.p.o. after midnight for cardiac cath in the a.m. cardiac cath 07/05 nolan salazar normal Recommendation: Continuous diuresis and guideline directed medical therapy for heart failure. Per cardiology plan Systolic heart failure, very low ejection fraction. She needs ischemia evaluation once she becomes euvolemic and able to lie flat, plan for coronary angiogram. ECHO Severely depressed left ventricular ejection fraction is 25 to 30%, left atrial enlargement, moderate to severe mitral regurgitation, severe tricuspid regurgitation, moderate pulmonary hypertension with a right ventricular systolic pressure of 55-60 ECHO 07/01 COMMENTS: 1. SEVERELY DEPRESSED LEFT VENTRICULAR EJECTION FRACTION 25-30% 2. SEVERE ANTERIOR/ APICAL HYPOKINESIS 3. LEFT ATRIAL ENLARGEMENT 4. MODERATE TO SEVERE MITRAL REGURGITATION 5. SEVERE TRICUSPID REGURGITATION 6. MODERATE PULMONARY HYPERTENSION WITH RIGHT VENTRICULAR SYSTOLIC PRESSURE OF 55-60 mmHg Cardiology Assessment And Recommendations: 1. Acute on chronic systolic heart failure exacerbation, improving with diuretics. Continue IV diuresis for one more day. Carefully monitor BUN, creatinine, and electrolytes. 2. Systolic heart failure, fairly low ejection fraction. Recommend to start low- dose Entresto and continue metoprolol, titrate up as the blood pressure tolerates and she will need ischemia workup, a coronary angiogram or stress test to further evaluate the cause of systolic heart failure. 3. Anemia. This is chronic and no active bleeding. --Pericardial effusion. Noted on CT imaging Cardiology on board. Continue diuresis with Lasix. Further management per plant inspector. Follow-up with cardiology after discharge abdominal ultrasound FINDINGS: Only a quite small volume of ascites is present. The amount of ascites is insufficient for paracentesis at this time. abdominal ultrasound Small volume ascites, paracenteisis not preformed, --Decompensated liver cirrhosis. CT imaging indicates Small to moderate amount of ascites. Patient has a history of multiple paracentesis. Interventional radiology consulted for paracentesis. Continue continue lactulose and diuresis with Lasix, Xifaxan, lacutlose --Nicotine dependence. Patient placed on nicotine patch and counseled on tobacco cessation. -- Right rib cage pain. Patient reported that she had thoracentesis about 2 weeks ago at [facility]. CT imaging indicates Small to moderate right and small left pleural effusions. Continue diuresis with Lasix. We will manage pain with current pain medication regimen. --Hypertension. Stable. Continue home medication. --GERD. Continue Protonix. --Iron deficiency anemia. Continue ferrous sulfate. Sees Dr Guevara as PCP/Cirhhosis --Insomnia. Continue home medication. Vital Signs/Physical Exam: Temp Pulse Resp BP Pulse Ox 97.9 F 102 H 16 116/71 97 07/01/23 12:00 07/01/23 12:00 07/01/23 12:00 07/01/23 12:00 07/01/23 12:00 Laboratory Data at Discharge: WBC 3.20 thou/uL (4.3-10.9) L 06/30/23 02:57 Hgb 8.8 g/dL (12.0-15.0) L 06/30/23 02:57 Hct 26.9 % (36.0-45.0) L 06/30/23 02:57 Plt Count 124 thou/uL (152-406) L D 06/30/23 02:57 PT 16.7 SECONDS (9.5-12.5) H 07/01/23 06:34 INR 1.52 07/01/23 06:34 APTT 37.5 SECONDS (24.3-36.9) H 07/01/23 06:34 Sodium 136 mEq/L (136-145) 07/01/23 06:34 Potassium 3.2 mEq/L (3.5-5.1) L 07/01/23 06:34 BUN 15 mg/dL (7-18) 07/01/23 06:34 Creatinine 1.12 mg/dL (0.55-1.02) H 07/01/23 06:34 Glucose 83 mg/dL (74-106) 07/01/23 06:34 Phosphorus 3.9 mg/dL (2.5-4.9) 06/27/23 20:43 Magnesium 1.9 mg/dL (1.6-2.4) 06/27/23 20:43 Triglycerides 57 mg/dL (<150) 06/28/23 05:43 Cholesterol 83 mg/dL (<200) 06/28/23 05:43 HDL Cholesterol 31 mg/dL (40-60) L 06/28/23 05:43 Cholesterol/HDL Ratio 2.68 06/28/23 05:43 Home Medications: Folic Acid 1 mg PO DAILY #30 tablet 09/27/18 Aspirin Chewable [Aspirin Chewable*] 81 mg PO DAILY 14 Days #14 tab.chew 07/01/23 Furosemide [Lasix] 40 mg PO DAILY 14 Days #14 tab NS 07/01/23 Lactulose [Cephulac*] 20 ml PO TID 14 Days #1 bottle 07/01/23 Levothyroxine [Synthroid*] 0.125 mcg PO [id number] 14 Days #14 tab NS 07/01/23 Melatonin 10 mg PO BEDTIME 7 Days #7 tab NS 07/01/23 Rifaximin [Xifaxan] 550 mg PO BID 14 Days #28 tab NS 07/01/23 Spironolactone 25 mg PO DAILY 14 Days #14 tab 07/01/23 Spironolactone [Aldactone*] 25 mg PO DAILY tab 07/01/23 Tramadol HCl [Ultram] 1 tab PO Q6H PRN 7 Days #14 tab 07/01/23 New Medications: Aspirin Chewable [Aspirin Chewable*] 81 mg PO DAILY 14 Days #14 tab.chew Lactulose [Cephulac*] 20 ml PO TID 14 Days #1 bottle Furosemide [Lasix] 40 mg PO DAILY 14 Days #14 tab NS Melatonin 10 mg PO BEDTIME 7 Days #7 tab NS Spironolactone 25 mg PO DAILY 14 Days #14 tab Levothyroxine [Synthroid*] 0.125 mcg PO [id number] 14 Days #14 tab NS Tramadol HCl [Ultram] 1 tab PO Q6H PRN 7 Days #14 tab PRN Reason: Pain Scale 5-7 (Moderate) Rifaximin [Xifaxan] 550 mg PO BID 14 Days #28 tab NS Physician Discharge Instructions: GOAL: Clear understanding of disease process INSTRUCTIONS: Diet: Low sodium Activity: Fall precautions Physician Discharge Instructions: -DC IV and DC home -Follow-up with PCP in 1 to 2 weeks -Follow-up with [facility] in 1-2 weeks -Please call Dr. Etienne at [phone] if any questions regarding hospital stay -Please call nursing station at [phone] if any nursing or medication ques tions -Return to the emergency room if symptoms worsen -Talk to your PCP regarding weight loss prescriptions Diet: low sodium Activity: Ad alina DME: Date Ordered: Name of Company: [employer] Services Needed: None Name of Company: Date or Referral: IMMUNIZATION Influenza Vaccine Indicated: No Influenza Vaccine Given: No Date Given: Pneumonia Vaccine Indicated: No Pneumonia Vaccine Given: Date Given: Followup: NONE,NONE [Primary Care Provider] -
--- NOTE | 2023-07-01 16:58 | EKG ---
Test Date: 2023-06-27 Test Time: 08:27:07 Coal Screener: IRAM MEASUREMENT RESULTS: Intervals: Rate: 102 WI: 174 QRSD: 152 QT: 400 QTc: 521 [place]: P: 61 WI: 174 QRS: 94 T: -37 INTERPRETIVE STATEMENTS: Sinus tachycardia with fusion complexes Nonspecific intraventricular block Abnormal ECG Compared to ECG 06/06/2023 09:16:40 Fusion complex(es) now present Sinus rhythm no longer present Myocardial infarct finding no longer present Electronically Signed On 07-01-23 16:53:34 DIRECTOR DIABETES by Filiberto Soliz
--- NOTE | 2023-07-01 17:23 | P.PN ---
Subjective Date of Service: 07/01/23 Chief Complaint: Shortness of breath. Subjective: No new changes Review of Systems 10-point ROS is otherwise unremarkable Physical Examination - Vital Signs Temperature: 97.9 F Blood Pressure: 105/69 Pulse: 100 Respirations: 16 Pulse Ox (%): 97 - Physical Exam General: Alert, In no apparent distress, Obese HEENT: Atraumatic, Normocephalic Respiratory: Normal air movement, Diminished Cardiovascular: Edema (+2) Gastrointestinal: Normal bowel sounds, Soft and benign Musculoskeletal: No clubbing, No swelling Integumentary: No rashes, No breakdown Assessment And Plan - Plan Assesment/Plan acute systolic or diastolic CHF. No recent echo on file. Patient reports a recent diagnosis of CHF. Patient placed on diuretics. Echocardiogram pending to assess cardiac structures and function. Statistical Typist consulted. Daily weight and strict I/O. We will await further recommendation from emergency services director. --Pericardial effusion. Noted on CT imaging. Echocardiogram pending for further evaluation. Cardiology on board. Continue diuresis with Lasix. Further management per emergency services director. Follow-up with cardiology after discharge abdominal ultrasound FINDINGS: Only a quite small volume of ascites is present. The amount of ascites is insufficient for paracentesis at this time. abdominal ultrasound Small volume ascites, parac enteisis not preformed, ECHO pending report --Decompensated liver cirrhosis. CT imaging indicates Small to moderate amount of ascites. Patient has a history of multiple paracentesis. Interventional radiology consulted for paracentesis. Continue lactulose and diuresis with Lasix, Xifaxan. Continue home medication. --Nicotine dependence. Patient placed on nicotine patch and counseled on tobacco cessation. -- Right rib cage pain. Patient reported that she had thoracentesis about 2 weeks ago at [facility]. CT imaging indicates Small to moderate right and small left pleural effusions. Continue diuresis with Lasix. We will manage pain with current pain medication regimen. --Hypertension. Stable. Continue home medication. --GERD. Continue Protonix. --Iron deficiency anemia. Continue ferrous sulfate. --Insomnia. Continue home medication. cardiac diet full code DVT Lovenox subQ. Discharge Plan: Home Plan to discharge in: 48 Hours Physician Review: Patient Assessed, Agree with Above Assessment and Plan Critical Care: No Time Spent Managing PTS Care (In Minutes): 35
--- NOTE | 2023-07-01 20:07 | CON ---
Date of Consultation: 07/01/2023 Reason For Consultation: Shortness of breath and congestive heart failure. History Of Present Illness: 52-year-old female, history of liver cirrhosis, hypertension, anemia, pr esented with shortness of breath and lower extremity edema, no orthopnea, and she is short of breath to talk. She also did have some chest pain on and off, but not related to exertion. She is not avani r if she had any cardiac evaluation in the past. On echo, she had a low ejection fraction and right ventricular systolic pressure of 55 to 60 mmHg on an echo that was done today. Past Medical History: As outlined above in the HPI. Medications: Refer to reconciliation sheet for detailed list. Allergies: NO KNOWN DRUG ALLERGIES. Family History: No premature coronary artery disease or cancer. Social History: She is an active smoker. Does not drink or use any drugs. Review of Systems: All systems reviewed and they were negative except as mentioned in the HPI. Physical Examination: Vital Signs: Reviewed. Head and Neck: Pupils are equal, reactive to light. Intact eye movements. Positive JVD. No cervic al lymphadenopathy. Neck is supple. Thyroid is not enlarged. Lungs: Positive crackles in both lung bases. No accessory muscle use or muscle retraction. Heart: Regular rate and rhythm. No extra sounds. Abdomen: Soft, nontender. Bowel sounds positive. No organomegaly. No masses or hernia. No rigidi ty or rebound. Extremities: Positive edema 2+. No clubbing or cyanosis. Intact pulses. Skin: No rash or nodule. Neurologic: Alert, awake, oriented x3. No acute focal deficits appreciated. Lymph Nodes: No cervical or axillary lymphadenopathy. Investigations: BUN is 15, creatinine 1.1, and hemoglobin is 8.8. Assessment And Recommendations: 1.Acute on chronic systolic heart failure exacerbation. Her ejection fraction is 25% to 30% and the right ventricular systolic pressure is between 55 to 60 mmHg. Continue on diuresis. Monitor BUN, c reatinine, electrolytes. Strict low-salt diet. 2.Systolic heart failure, very low ejection fraction. She needs ischemia evaluation once she become s euvolemic and able to lie flat, plan for coronary angiogram. 3.Active smoker. She was counseled to quit. 4.Anemia. No active bleeding. Recommend GI workup on this matter. SR/MODL Voice ID: [id number] Report ID: [id number]
[2023-07-01] MEDS: MELATONIN 5 MG TABLET PO SCH (20:58)
[2023-07-01] MEDS: Rifaximin 550 MG Tab PO SCH (20:59)
[2023-07-02] MEDS: ALBUTEROL 2.5 MG/3 ML NEB SOL NEB SCH ×7 (01:00→19:48)
[2023-07-02] MEDS: ONDANSETRON 4 MG/2 ML VIAL IV PRN (01:06)
[2023-07-02] MEDS: MORPHINE 2 MG/ML SYR IV PRN ×3 (01:06→11:58)
[2023-07-02] MEDS: ALBUMIN HUMAN 25% 12.5 GM, FUROSEMIDE 100 MG in NA CHLORIDE 0.9% 40 ML IV SCH ×2 (06:16→11:59)
[2023-07-02] MEDS: LEVOTHYROXINE SOD 0.125 MG TAB PO SCH (06:17)
--- NOTE | 2023-07-02 08:14 | ECHO ---
HEIGHT: 5 ft 5 in WEIGHT: 202 lb 4 oz DATE OF STUDY: 07/01/[address]: Zahida Ramsay 2-DIMENSIONAL: YES M.MODE: YES DOPPLER: YES COLOR FLOW: YES TDS: PORTABLE: YES DEFINITY: BUBBLE STUDY: DIAGNOSIS: CONGESTIVE HEART FAILURE CARDIAC HISTORY: CATHERIZATION: SURGERY: PROSTHETIC VALVE: PACEMAKER: MEASUREMENTS (cm) DIASTOLIC (NORMALS) SYSTOLIC (NORMALS) IVSd 0.9 (0.6-1.2) LA Diam 4.3 (1.9-4.0) LVEF 25-30% LVIDd 6.4 (3.5-5.7) LVIDs 5.9 (2.0-3.5) %FS 7% LVPWd 1.0 (0.6-1.2) Ao Diam 3.0 (2.0-3.7) 2 DIMENSIONAL ASSESSMENT: RIGHT ATRIUM: NORMAL LEFT ATRIUM: ENLARGED RIGHT VENTRICLE: NORMAL LEFT VENTRICLE: DILATED LEFT VENTRICLE TRICUSPID VALVE: SEVERE TRICUSPID REGURGITATION MITRAL VALVE: MODERATE TO SEVERE MITRAL REGURGIATION PULMONIC VALVE: MILD PULMONIC INSUFFICIENCY AORTIC VALVE: MILD AORTIC INSUFFICIENCY PERICARDIAL EFFUSION: TRACE AORTIC ROOT: LEFT VENTRICULAR WALL MOTION: ANTERIOR/ APICAL SEVERE HYPOKINESIS DOPPLER/COLOR FLOW: SEE BELOW COMMENTS: 1. SEVERELY DEPRESSED LEFT VENTRICULAR EJECTION FRACTION 25-30% 2. SEVERE ANTERIOR/ APICAL HYPOKINESIS 3. LEFT ATRIAL ENLARGEMENT 4. MODERATE TO SEVERE MITRAL REGURGITATION 5. SEVERE TRICUSPID REGURGITATION 6. MODERATE PULMONARY HYPERTENSION WITH RIGHT VENTRICULAR SYSTOLIC PRESSURE OF 55-60 mmHg TECHNOLOGIST: OLGA LERNER
[2023-07-02] MEDS ORDERED: POTASSIUM 25 MEQ EFFERV TAB PO ONE (09:00)
[2023-07-02] MEDS ORDERED: FUROSEMIDE 40 MG TABLET PO SCH (09:00)
[2023-07-02] MEDS: FOLIC ACID 1 MG TABLET PO SCH (09:08)
[2023-07-02] MEDS: LACTULOSE 20 GM/30 ML UCUP PO SCH ×3 (09:08→21:22)
[2023-07-02] MEDS: ASPIRIN 81 MG CHEWABLE TABLET PO SCH (09:08)
[2023-07-02] MEDS: ENOXAPARIN 40 MG/0.4 ML SQ SCH (09:09)
[2023-07-02] MEDS: FUROSEMIDE 40 MG/4 ML VIAL IV SCH ×2 (09:14→09:15)
[2023-07-02] MEDS: METOPROLOL XL 25 MG TAB PO SCH (09:14)
[2023-07-02] MEDS: NICOTINE 21 MG/PAT TD SCH ×2 (09:16→22:30)
--- NOTE | 2023-07-02 14:33 | P.PN ---
Subjective Date of Service: 07/02/23 Chief Complaint: Shortness of breath. Subjective: Improving Reports feeling better, reports shortness of breath with exertion, reports history tobacco use, Review of Systems ROS perHPI Physical Examination - Vital Signs Temperature: 98.0 F Blood Pressure: 111/74 Pulse: 109 Respirations: 16 Pulse Ox (%): 95 - Physical Exam General: Alert, In no apparent distress, Oriented x3, Obese HEENT: Atraumatic, Normocephalic Neck: Supple, 2+ carotid pulse no bruit Respiratory: Normal air movement, Crackles/rales Cardiovascular: Normal pulses, Regular rate/rhythm Capillary refill: <2 Seconds Gastrointestinal: Normal bowel sounds, Soft and benign, Other (obese, hx cirrhosis) Musculoskeletal: Other (generalized weakness) Neurological: Normal gait, Normal speech, Normal strength at 5/5 x4 extr Assessment And Plan - Plan Assessment And Recommendations: Acute on chronic systolic heart failure exacerbation ECHO ordered, No recent echo on file. Patient reports a recent diagnosis of CHF. Patient placed on diuretics. Echocardiogram pending to assess cardiac structures and function. Demurrage Clerk consulted. Daily weight and strict I/O. We will await further recommendation from guest request runner. Per cardiology plan Systolic heart failure, very low ejection fraction. She needs ischemia evaluation once she becomes euvolemic and able to lie flat, plan for coronary angiogram. ejection fraction is 25% to 30% right ventricular systolic pressure is between 55 to 60 mmHg. Continue on diuresis. Monitor BUN, creatinine, electrolytes. Strict low-salt diet. --Pericardial effusion. Noted on CT imaging. Echocardiogram pending for further evaluation. Cardiology on board. Continue diuresis with Lasix. Further management per guest request runner. Follow-up with cardiology after discharge abdominal ultrasound FINDINGS: Only a quite small volume of ascites is present. The amount of ascites is insufficient for paracentesis at this time. abdominal ultrasound Small volume ascites, paracenteisis not preformed, ECHO pending report --Decompensated liver cirrhosis. CT imaging indicates Small to moderate amount of ascites. Patient has a history of multiple paracentesis. Interventional radiology consulted for paracentesis. Continue lactulose and diuresis with Lasix, Xifaxan. Continue home medication. --Nicotine dependence. Patient placed on nicotine patch and counseled on tobacco cessation. -- Right rib cage pain. Patient reported that she had thoracentesis about 2 weeks ago at [facility]. CT imaging indicates Small to moderate right and small left pleural effusions. Continue diuresis with Lasix. We will manage pain with current pain medication regimen. --Hypertension. Stable. Continue home medication. --GERD. Continue Protonix. --Iron deficiency anemia. Continue ferrous sulfate. Sees Dr Guevara as PCP/Cirhhosis --Insomnia. Continue home medication. cardiac diet full code DVT Lovenox subQ. Discharge Plan: Home - Code Status/Comfort Care Code Status: Full Code Physician Review: Patient Assessed, Agree with Above Assessment and Plan Critical Care: No Time Spent Managing PTS Care (In Minutes): 35
[2023-07-02] MEDS: Rifaximin 550 MG Tab PO SCH ×2 (15:08→21:00)
[2023-07-02] MEDS: SPIRONOLACTONE 25 MG TABLET PO SCH (15:09)
--- NOTE | 2023-07-02 15:19 | PN ---
Date of Progress Note: 07/02/2023 Subjective: Seen by bedside. She is doing much better today after aggressive diuresis yesterday. Review of Systems: Positive for mild orthopnea, lower extremity edema. No nausea, vomiting, or diarrhea. No abdominal pain. No chest pain. No shortness of breath. All other systems were reviewed, they were negative. Objective: Vital Signs: Reviewed. Head and Neck: Pupils are equal, reactive to light. Intact eye movements. Positive JVD. No cervic al lymphadenopathy. Neck is supple. Thyroid is not enlarged. Lungs: Decreased breathing sounds with faint crackles in the bases. No accessory muscle use or musc le retraction. Heart: Regular rate and rhythm. No extra sounds. Abdomen: Soft, nontender. Bowel sounds positive. No organomegaly. No masses or hernia. No rigidi ty or rebound. Extremities: 2+ edema bilaterally. No clubbing or cyanosis. Intact pulses. Skin: No rash or nodule. Neurologic: Alert, awake, oriented x3. No acute focal deficits appreciated. Investigations: BUN 13, creatinine 1.1, potassium is 3 and hemoglobin is 8.8. Assessment And Recommendations: 1.Acute on chronic systolic heart failure exacerbation, improving with diuretics. Continue IV diure sis for one more day. Carefully monitor BUN, creatinine, and electrolytes. 2.Systolic heart failure, fairly low ejection fraction. Recommend to start low-dose Entresto and co ntinue metoprolol, titrate up as the blood pressure tolerates and she will need ischemia workup, a co ronary angiogram or stress test to further evaluate the cause of systolic heart failure. 3.Anemia. This is chronic and no active bleeding. SR/MODL Voice ID: [id number] Report ID: [id number]
[2023-07-02] MEDS: MELATONIN 5 MG TABLET PO SCH (21:00)
[2023-07-02] MEDS: HYDROCODONE/APAP 5/325 MG TAB PO PRN (21:22)
[2023-07-03] MEDS: ALBUTEROL 2.5 MG/3 ML NEB SOL NEB SCH ×5 (00:58→20:01)
[2023-07-03] MEDS: METOPROLOL XL 25 MG TAB PO SCH (06:00)
[2023-07-03] MEDS: LEVOTHYROXINE SOD 0.125 MG TAB PO SCH (06:04)
--- NOTE | 2023-07-03 07:11 | P.PN ---
Subjective Date of Service: 07/03/23 Chief Complaint: Shortness of breath. Subjective: Improving Reports feeling better, reports shortness of breath with exertion, reports history tobacco use, Review of Systems ROS perHPI Physical Examination - Vital Signs Temperature: 97.3 F Blood Pressure: 99/57 Pulse: 80 Respirations: 16 Pulse Ox (%): 90 - Physical Exam General: Alert, In no apparent distress, Oriented x3, Obese HEENT: Atraumatic, Normocephalic Neck: Supple, 2+ carotid pulse no bruit Respiratory: Normal air movement, Diminished Cardiovascular: Normal pulses, Regular rate/rhythm Gastrointestinal: Normal bowel sounds, Soft and benign Musculoskeletal: No clubbing, No swelling Integumentary: No breakdown, Other (ue brusing from lab draws) Neurological: Normal strength at 5/5 x4 extr Assessment And Plan - Plan Assessment And Recommendations: Acute on chronic systolic heart failure exacerbation ECHO ordered, No recent echo on file. Patient reports a recent diagnosis of CHF. Patient placed on diuretics. Echocardiogram pending to assess cardiac structures and function. Core Loader consulted. Daily weight and strict I/O. We will await further recommendation from business machines teacher. Per cardiology plan Systolic heart failure, very low ejection fraction. She needs ischemia evaluation once she becomes euvolemic and able to lie flat, plan for coronary angiogram. ECHO Severely depressed left ventricular ejection fraction is 25 to 30%, left atrial enlargement, moderate to severe mitral regurgitation, severe tricuspid regurgitation, moderate pulmonary hypertension with a right ventricular systolic pressure of 55-60 --Pericardial effusion. Noted on CT imaging. Echocardiogram pending for f urther evaluation. Cardiology on board. Continue diuresis with Lasix. Further management per business machines teacher. Follow-up with cardiology after discharge abdominal ultrasound FINDINGS: Only a quite small volume of ascites is present. The amount of ascites is insufficient for paracentesis at this time. abdominal ultrasound Small volume ascites, paracenteisis not preformed, ECHO pending report --Decompensated liver cirrhosis. CT imaging indicates Small to moderate amount of ascites. Patient has a history of multiple paracentesis. Interventional radiology consulted for paracentesis. Continue lactulose and diuresis with Lasix, Xifaxan. Continue home medication. --Nicotine dependence. Patient placed on nicotine patch and counseled on tobacco cessation. -- Right rib cage pain. Patient reported that she had thoracentesis about 2 weeks ago at [facility]. CT imaging indicates Small to moderate right and small left pleural effusions. Continue diuresis with Lasix. We will manage pain with current pain medication regimen. --Hypertension. Stable. Continue home medication. --GERD. Continue Protonix. --Iron deficiency anemia. Continue ferrous sulfate. Sees Dr Guevara as PCP/Cirhhosis --Insomnia. Continue home medication. cardiac diet full code DVT Lovenox subQ. Discharge Plan: Home - Code Status/Comfort Care Code Status: Full Code Physician Review: Patient Assessed, Agree with Above Assessment and Plan Critical Care: No Time Spent Managing PTS Care (In Minutes): 35
[2023-07-03] MEDS: LACTULOSE 20 GM/30 ML UCUP PO SCH ×3 (08:37→20:48)
[2023-07-03] MEDS: SPIRONOLACTONE 25 MG TABLET PO SCH (08:37)
[2023-07-03] MEDS: ENOXAPARIN 40 MG/0.4 ML SQ SCH (08:38)
[2023-07-03] MEDS: ASPIRIN 81 MG CHEWABLE TABLET PO SCH (08:38)
[2023-07-03] MEDS: FOLIC ACID 1 MG TABLET PO SCH (08:38)
[2023-07-03] MEDS: Rifaximin 550 MG Tab PO SCH ×2 (08:38→20:49)
[2023-07-03] MEDS: FUROSEMIDE 40 MG/4 ML VIAL IV SCH ×2 (09:00→16:46)
[2023-07-03] MEDS ORDERED: ALBUMIN HUMAN 25% 12.5 GM, FUROSEMIDE 100 MG in NA CHLORIDE 0.9% 40 ML IV SCH (11:00)
[2023-07-03] MEDS: HYDROCODONE/APAP 5/325 MG TAB PO PRN (11:26)
[2023-07-03 13:51] LABS: Absolute Lymphocytes (CBC) 0.2 K/uL (0.7-4.9); Hematocrit 27.7 % (36.0-45.0); Lymphocytes % 7.7 % (15.3-44.8); MCV 84.7 fL (80-100); MPV 8.9 fL (7.6-11.3); Platelets 97 thou/uL (152-406); RBC Red Blood Cell Count 3.27 M/uL (3.86-4.86)
[2023-07-03 14:22] LABS: Potassium 2.9 mEq/L (3.5-5.1)
[2023-07-03 15:30] LABS: Anisocytosis 1+; Blood Morphology Comment NOTED (NOT SEEN); Platelet Estimate DECR
[2023-07-03] MEDS ORDERED: NA CHLORIDE 0.9% 0 ML ONE (16:41)
[2023-07-03] MEDS ORDERED: KCL 20 MEQ/100 mL IVPB 20 MEQ/100 ML BAG IV SCH (17:00)
[2023-07-03] MEDS ORDERED: POTASSIUM CL 40 MEQ in NA CHLORIDE 0.9% 500 ML IV SCH (19:00)
[2023-07-03] MEDS ORDERED: POTASSIUM 25 MEQ EFFERV TAB PO ONE (19:46)
[2023-07-03] MEDS ORDERED: POTASSIUM CL SA 10 MEQ TAB PO ONE (19:46)
[2023-07-03] MEDS: MELATONIN 5 MG TABLET PO SCH (21:00)
[2023-07-03] MEDS: ONDANSETRON 4 MG/2 ML VIAL IV PRN (21:51)
[2023-07-04] MEDS: ALBUTEROL 2.5 MG/3 ML NEB SOL NEB SCH ×5 (00:46→19:00)
[2023-07-04] MEDS: MORPHINE 2 MG/ML SYR IV PRN (00:58)
[2023-07-04] MEDS: METOPROLOL XL 25 MG TAB PO SCH (06:00)
[2023-07-04] MEDS: LEVOTHYROXINE SOD 0.125 MG TAB PO SCH (06:05)
[2023-07-04 06:28] LABS: Potassium 3.5 mEq/L (3.5-5.1)
[2023-07-04] MEDS ORDERED: POTASSIUM CL SA 10 MEQ TAB PO ONE (09:00)
[2023-07-04] MEDS: ENOXAPARIN 40 MG/0.4 ML SQ SCH (10:11)
[2023-07-04] MEDS: FOLIC ACID 1 MG TABLET PO SCH (10:11)
[2023-07-04] MEDS: LACTULOSE 20 GM/30 ML UCUP PO SCH ×3 (10:11→21:03)
[2023-07-04] MEDS: ASPIRIN 81 MG CHEWABLE TABLET PO SCH (10:11)
[2023-07-04] MEDS: Rifaximin 550 MG Tab PO SCH ×2 (10:12→21:04)
[2023-07-04] MEDS: SPIRONOLACTONE 25 MG TABLET PO SCH (10:12)
[2023-07-04] MEDS: NICOTINE 21 MG/PAT TD SCH (10:22)
[2023-07-04] MEDS: FUROSEMIDE 40 MG/4 ML VIAL IV SCH ×2 (10:23→17:26)
[2023-07-04] MEDS ORDERED: ALBUMIN HUMAN 25% 12.5 GM, FUROSEMIDE 100 MG in NA CHLORIDE 0.9% 40 ML IV SCH (11:00)
[2023-07-04] MEDS: HYDROCODONE/APAP 10/325 TAB PO PRN ×2 (11:15→21:03)
--- NOTE | 2023-07-04 14:29 | P.PN ---
Subjective Date of Service: 07/04/23 Chief Complaint: Shortness of breath. Subjective: Improving Reports feeling better, reports shortness of breath with exertion, reports history tobacco use, Review of Systems per HPI Physical Examination - Vital Signs Temperature: 98.2 F Blood Pressure: 116/63 Pulse: 104 Respirations: 16 Pulse Ox (%): 92 - Physical Exam General: Alert, In no apparent distress, Oriented x3 HEENT: Atraumatic, Normocephalic Neck: Supple, 2+ carotid pulse no bruit Respiratory: Normal air movement, Diminished Cardiovascular: Normal pulses, Regular rate/rhythm Capillary refill: <2 Seconds Gastrointestinal: Normal bowel sounds, Soft and benign Musculoskeletal: No clubbing, No swelling Integumentary: No breakdown, No significant lesion Neurological: Normal speech, Normal tone Assessment And Plan - Plan Assessment And Recommendations: Acute on chronic systolic heart failure exacerbation ECHO ordered, No recent echo on file. Patient reports a recent diagnosis of CHF. Patient placed on diuretics. Echocardiogram pending to assess cardiac structures and function. Water Supply Engineer consulted. Daily weight and strict I/O. We will await further recommendation from home improvement advisor. 07/04 N.p.o. after midnight for cardiac cath in the a.m. Per cardiology plan Systolic heart failure, very low ejection fraction. She needs ischemia evaluation once she becomes euvolemic and able to lie flat, plan for coronary angiogram. ECHO Severely depressed left ventricular ejection fraction is 25 to 30%, left atrial enlargement, moderate to severe mitral regurgitation, severe tricuspid regurgitation, moderate pulmonary hypertension with a right ventricular systolic pressure of 55-60 --Pericardial effusion. Noted on CT imaging. Echocardiogram pending for further evaluation. Cardiology on board. Continue diuresis with Lasix. Further management per home improvement advisor. Follow-up with cardiology after discharge abdominal ultrasound FINDINGS: Only a quite small volume of ascites is present. The amount of ascites is insufficient for paracentesis at this time. abdominal ultrasound Small volume ascites, paracenteisis not preformed, ECHO pending report --Decompensated liver cirrhosis. CT imaging indicates Small to moderate amount of ascites. Patient has a history of multiple paracentesis. Interventional radiology consulted for paracentesis. Continue lactulose and diuresis with Lasix, Xifaxan. Continue home medication. --Nicotine dependence. Patient placed on nicotine patch and counseled on tobacco cessation. -- Right rib cage pain. Patient reported that she had thoracentesis about 2 weeks ago at [facility]. CT imaging indicates Small to moderate right and small left pleural effusions. Continue diuresis with Lasix. We will manage pain with current pain medication regimen. --Hypertension. Stable. Continue home medication. --GERD. Continue Protonix. --Iron deficiency anemia. Continue ferrous sulfate. Sees Dr Guevara as PCP/Cirhhosis --Insomnia. Continue home medication. cardiac diet full code DVT Lovenox subQ. Discharge Plan: Home - Code Status/Comfort Care Code Status: Full Code Physician Review: Patient Assessed, Agree with Above Assessment and Plan Critical Care: No Time Spent Managing PTS Care (In Minutes): 35
[2023-07-04] MEDS: ALBUTEROL 2.5 MG/3 ML NEB SOL NEB PRN (23:17)
[2023-07-04] MEDS: MELATONIN 5 MG TABLET PO SCH (23:59)
[2023-07-05] MEDS: ASPIRIN 81 MG CHEWABLE TABLET PO SCH ×2 (04:21→08:03)
[2023-07-05] MEDS: LEVOTHYROXINE SOD 0.125 MG TAB PO SCH (05:28)
[2023-07-05] MEDS: METOPROLOL XL 25 MG TAB PO SCH (05:30)
[2023-07-05 07:31] LABS: Potassium 3.8 mEq/L (3.5-5.1)
[2023-07-05] MEDS ORDERED: POTASSIUM CL SA 10 MEQ TAB PO ONE (07:47)
[2023-07-05] MEDS: NICOTINE 21 MG/PAT TD SCH (08:03)
[2023-07-05] MEDS: HYDROCODONE/APAP 10/325 TAB PO PRN (08:03)
[2023-07-05] MEDS: LACTULOSE 20 GM/30 ML UCUP PO SCH ×3 (08:03→21:36)
[2023-07-05] MEDS: Rifaximin 550 MG Tab PO SCH ×2 (08:03→21:36)
[2023-07-05] MEDS: FOLIC ACID 1 MG TABLET PO SCH (08:03)
[2023-07-05] MEDS: FUROSEMIDE 40 MG/4 ML VIAL IV SCH ×2 (08:04→21:36)
[2023-07-05] MEDS: SPIRONOLACTONE 25 MG TABLET PO SCH (08:04)
[2023-07-05] MEDS: ENOXAPARIN 40 MG/0.4 ML SQ SCH (08:10)
[2023-07-05] MEDS ORDERED: MORPHINE 2 MG/ML SYR IV ONE (09:45)
[2023-07-05] MEDS: ALBUTEROL 2.5 MG/3 ML NEB SOL NEB PRN (11:28)
[2023-07-05] MEDS ORDERED: NA CHLORIDE 0.9% 500 ML ONE (17:26)
[2023-07-05] MEDS ORDERED: LIDOCAINE 1% 20 ML MDV ONE (17:44)
[2023-07-05] MEDS ORDERED: HEPA 1000U/500MLS 2,000 UNIT/1,000 ML BAG IV ONE (17:44)
[2023-07-05] MEDS ORDERED: VERAPAMIL HCL 10 MG/4 ML VIAL IV ONE (17:44)
[2023-07-05] MEDS ORDERED: FENTANYL CITR 100 MCG/2 ML ONE (17:44)
[2023-07-05] MEDS ORDERED: ASPIRIN 325 MG TAB ONE (17:45)
[2023-07-05] MEDS ORDERED: ATROPINE SULF 1 MG/10 ML SYR IV ONE (17:45)
[2023-07-05] MEDS ORDERED: MIDAZOLAM HCL 2 MG/2 ML INJ ONE (17:45)
[2023-07-05] MEDS ORDERED: TICAGRELOR 90 MG TABLET PO ONE (17:45)
[2023-07-05] MEDS ORDERED: CLOPIDOGREL 75 MG TABLET ONE (17:45)
[2023-07-05] MEDS ORDERED: HEPARIN 5000 UNIT/ML 1 ML VIAL ONE (17:45)
[2023-07-05] MEDS ORDERED: HEPARIN 10,000 UNIT/10 ML VIAL IV ONE (17:45)
[2023-07-05] MEDS ORDERED: HYDROCODONE/APAP 7.5/325 MG TAB PO PRN (18:16)
--- NOTE | 2023-07-05 19:22 | OP ---
Date of Procedure: 07/05/2023 Surgeon: JARRED GARY Procedures Performed: 1.Selective coronary angiogram. 2.Left heart catheterization. Indication: 1.New-onset systolic heart failure. 2.Elevated troponin. Access: Right femoral artery 6-Mozambican closed with 6-Mozambican Angio-Seal. Complications: None. Bleeding: Less than 20 mL. Description Of Procedure: After risks, benefits, and alternatives were explained, patient agreed to procedure and signed informed consent. Patient was brought into cardiac catheterization laboratory, prepped and draped in the usual sterile fashion. Then, I accessed right femoral artery using micropu ncture kit, ultrasound guidance, and fluoroscopy, placed 6-Mozambican [place] sheath and then took a 6-F rench JL4 catheter into the aortic root, engaged left main, took standard views and exchanged for 6-F rench JR4 catheter, engaged the RCA and took standard views and then the JR4 catheter was pushed over the wire into the LV, measured the LVEDP and pullback did not record any gradient and then the margie ter and the sheath were removed and 6-Moz[place]ican Angio-Seal was used for closure with good hemostasis. Findings: 1.Left main; very large and normal. 2.LAD; large and normal and normal diagonal branches. 3.Left circumflex; small and normal. 4.RCA; very large and dominant and normal. 5.Elevated LVEDP at 34 mmHg. Conclusion: 1.Normal coronary arteries. 2.Severely elevated LVEDP. Recommendation: Continuous diuresis and guideline directed medical therapy for heart failure. SR/MODL Voice ID: [id number] Report ID: [id number]
[2023-07-05] MEDS: MELATONIN 5 MG TABLET PO SCH (21:36)
[2023-07-06] MEDS ORDERED: TRAZODONE 50 MG TABLET PO ONE (01:45)
[2023-07-06] MEDS: LEVOTHYROXINE SOD 0.125 MG TAB PO SCH (05:57)
[2023-07-06] MEDS: METOPROLOL XL 25 MG TAB PO SCH (05:57)
--- NOTE | 2023-07-06 07:10 | P.PN ---
Subjective Date of Service: 07/06/23 Chief Complaint: Shortness of breath. Reports feeling better, reports shortness of breath with exertion, reports history tobacco use, - Physical Exam General: Alert, In no apparent distress, Oriented x3 HEENT: Atraumatic, Normocephalic Neck: Supple, 2+ carotid pulse no bruit Respiratory: Normal air movement, Diminished Cardiovascular: Normal pulses, Regular rate/rhythm Capillary refill: <2 Seconds Gastrointestinal: Normal bowel sounds, Soft and benign Musculoskeletal: No clubbing, No swelling Integumentary: No breakdown, No significant lesion Neurological: Normal speech, Normal tone Review of Systems per HPI Physical Examination - Vital Signs Temperature: 97.7 F Blood Pressure: 115/62 Pulse: 102 Respirations: 16 Pulse Ox (%): 95 Assessment And Plan - Plan Assessment And Recommendations: Acute on chronic systolic heart failure exacerbation ECHO ordered, No recent echo on file. Patient reports a recent diagnosis of CHF. Patient placed on diuretics. Echocardiogram pending to assess cardiac structures and function. Piece Maker consulted. Daily weight and strict I/O. We will await further recommendation from drafting teacher. 07/04 N.p.o. after midnight for cardiac cath in the a.m. Per cardiology plan Systolic heart failure, very low ejection fraction. She needs ischemia evaluation once she becomes euvolemic and able to lie flat, plan for coronary angiogram. ECHO Severely depressed left ventricular ejection fraction is 25 to 30%, left atrial enlargement, moderate to severe mitral regurgitation, severe tricuspid regurgitation, moderate pulmonary hypertension with a right ventricular systolic pressure of 55-60 Assessment And Recommendations: Acute on chronic systolic heart failure exacerbation ECHO ordered, No recent echo on file. Patient reports a recent diagnosis of CHF. Patient placed on diuretics. . Piece Maker consulted. Daily weight and strict I/O. We will await further recommendation from drafting teacher. 07/04 N.p.o. after midnight for cardiac cath in the a.m. cardiac cath 07/05 Findings: 1. Left main; very large and normal. 2. LAD; large and normal and normal diagonal branches. 3. Left circumflex; small and normal. 4. RCA; very large and dominant and normal. 5. Elevated LVEDP at 34 mmHg. Conclusion: 1. Normal coronary arteries. 2. Severely elevated LVEDP Recommendation: Continuous diuresis and guideline directed medical therapy for heart failure Per cardiology plan Systolic heart failure, very low ejection fraction. She needs ischemia evaluation once she becomes euvolemic and able to lie flat, plan for coronary angiogram. ECHO Severely depressed left ventricular ejection fraction is 25 to 30%, left atrial enlargement, moderate to severe mitral regurgitation, severe tricuspid regurgitation, moderate pulmonary hypertension with a right ventricular systolic pressure of 55-60 ECHO 07/01 COMMENTS: 1. SEVERELY DEPRESSED LEFT VENTRICULAR EJECTION FRACTION 25-30% 2. SEVERE ANTERIOR/ APICAL HYPOKINESIS 3. LEFT ATRIAL ENLARGEMENT 4. MODERATE TO SEVERE MITRAL REGURGITATION 5. SEVERE TRICUSPID REGURGITATION 6. MODERATE PULMONARY HYPERTENSION WITH RIGHT VENTRICULAR SYSTOLIC PRESSURE OF 55-60 mmHg Cardiology Assessment And Recommendations: 1. Acute on chronic systolic heart failure exacerbation, improving with diuretics. Continue IV diuresis for one more day. Carefully monitor BUN, creatinine, and electrolytes. 2. Systolic heart failure, fairly low ejection fraction. Recommend to start low- dose Entresto and continue metoprolol, titrate up as the blood pressure tolerates and she will need ischemia workup, a coronary angiogram or stress test to further evaluate the cause of systolic heart failure. 3. Anemia. This is chronic and no active bleeding. --Pericardial effusion. Noted on CT imaging. Echocardiogram pending for further evaluation. Cardiology on board. Continue diuresis with Lasix. Further management per drafting teacher. Follow-up with cardiology after discharge abdominal ultrasound FINDINGS: Only a quite small volume of ascites is present. The amount of ascites is insufficient for paracentesis at this time. abdominal ultrasound Small volume ascites, paracenteisis not preformed, ECHO pending report --Decompensated liver cirrhosis. CT imaging indicates Small to moderate amount of ascites. Patient has a history of multiple paracentesis. Interventional radiology consulted for paracentesis. Continue lactulose and diuresis with Lasix, Xifaxan. Continue home medication. --Nicotine dependence. Patient placed on nicotine patch and counseled on tobacco cessation. -- Right rib cage pain. Patient reported that she had thoracentesis about 2 weeks ago at [facility]. CT imaging indicates Small to moderate right and small left pleural effusions. Continue diuresis with Lasix. We will manage pain with current pain medication regimen. --Hypertension. Stable. Continue home medication. --GERD. Continue Protonix. --Iron deficiency anemia. Continue ferrous sulfate. Sees Dr Guevara as PCP/Cirhhosis --Insomnia. Continue home medication. cardiac diet full code DVT Lovenox subQ. Discharge Plan: Home - Code Status/Comfort Care Code Status: Full Code Physician Review: Patient Assessed, Agree with Above Assessment and Plan Critical Care: No Time Spent Managing PTS Care (In Minutes): 35
--- NOTE | 2023-07-06 07:12 | P.PN ---
Subjective Date of Service: 07/07/23 Chief Complaint: Shortness of breath. Reports feeling better, reports shortness of breath with exertion, reports history tobacco use, - Physical Exam General: Alert, In no apparent distress, Oriented x3 HEENT: Atraumatic, Normocephalic Neck: Supple, 2+ carotid pulse no bruit Respiratory: Normal air movement, Diminished Cardiovascular: Normal pulses, Regular rate/rhythm Capillary refill: <2 Seconds Gastrointestinal: Normal bowel sounds, Soft and benign Musculoskeletal: No clubbing, No swelling Integumentary: No breakdown, No significant lesion Neurological: Normal speech, Normal tone Review of Systems per hpi Physical Examination - Vital Signs Temperature: 97.7 F Blood Pressure: 115/62 Pulse: 102 Respirations: 16 Pulse Ox (%): 95 Assessment And Plan - Plan Assessment And Recommendations: Acute on chronic systolic heart failure exacerbation ECHO ordered, No recent echo on file. Patient reports a recent diagnosis of CHF. Patient placed on diuretics. Echocardiogram pending to assess cardiac structures and function. Legal Instructor consulted. Daily weight and strict I/O. We will await further recommendation from manager laboratory. 07/04 N.p.o. after midnight for cardiac cath in the a.m. Per cardiology plan Systolic heart failure, very low ejection fraction. She needs ischemia evaluation once she becomes euvolemic and able to lie flat, plan for coronary angiogram. ECHO Severely depressed left ventricular ejection fraction is 25 to 30%, left atrial enlargement, moderate to severe mitral regurgitation, severe tricuspid regurgitation, moderate pulmonary hypertension with a right ventricular systolic pressure of 55-60 Assessment And Recommendations: Acute on chronic systolic heart failure exacerbation ECHO ordered, No recent echo on file. Patient reports a recent diagnosis of CHF. Patient placed on diuretics. . Legal Instructor consulted. Daily weight and strict I/O. We will await further recommendation from manager laboratory. 07/04 N.p.o. after midnight for cardiac cath in the a.m. Per cardiology plan Systolic heart failure, very low ejection fraction. She needs ischemia evaluation once she becomes euvolemic and able to lie flat, plan for coronary angiogram. ECHO Severely depressed left ventricular ejection fraction is 25 to 30%, left atrial enlargement, moderate to severe mitral regurgitation, severe tricuspid regurgitation, moderate pulmonary hypertension with a right ventricular systolic pressure of 55-60 ECHO 07/01 COMMENTS: 1. SEVERELY DEPRESSED LEFT VENTRICULAR EJECTION FRACTION 25-30% 2. SEVERE ANTERIOR/ APICAL HYPOKINESIS 3. LEFT ATRIAL ENLARGEMENT 4. MODERATE TO SEVERE MITRAL REGURGITATION 5. SEVERE TRICUSPID REGURGITATION 6. MODERATE PULMONARY HYPERTENSION WITH RIGHT VENTRICULAR SYSTOLIC PRESSURE OF 55-60 mmHg Cardiology Assessment And Recommendations: 1. Acute on chronic systolic heart failure exacerbation, improving with diuretics. Continue IV diuresis for one more day. Carefully monitor BUN, creatinine, and electrolytes. 2. Systolic heart failure, fairly low ejection fraction. Recommend to start low- dose Entresto and continue metoprolol, titrate up as the blood pressure tolerates and she will need ischemia workup, a coronary angiogram or stress test to further evaluate the cause of systolic heart failure. 3. Anemia. This is chronic and no active bleeding. --Pericardial effusion. Noted on CT imaging. Echocardiogram pending for further evaluation. Cardiology on board. Continue diuresis with Lasix. Further management per manager laboratory. Follow-up with cardiology after discharge abdominal ultrasound FINDINGS: Only a quite small volume of ascites is present. The amount of ascites is insufficient for paracentesis at this time. abdominal ultrasound Small volume ascites, paracenteisis not preformed, ECHO pending report --Decompensated liver cirrhosis. CT imaging indicates Small to moderate amount of ascites. Patient has a history of multiple paracentesis. Interventional radiology consulted for paracentesis. Continue lactulose and diuresis with Lasix, Xifaxan. Continue home medication. --Nicotine dependence. Patient placed on nicotine patch and counseled on tobacco cessation. -- Right rib cage pain. Patient reported that she [facility] imaging indicates Small to moderate right and small left pleural effusions. Continue diuresis with Lasix. We will manage pain with current pain medication regimen. --Hypertension. Stable. Continue home medication. --GERD. Continue Protonix. --Iron deficiency anemia. Continue ferrous sulfate. Sees Dr Guevara as PCP/Cirhhosis --Insomnia. Continue home medication. cardiac diet full code DVT Lovenox subQ. Discharge Plan: Home - Code Status/Comfort Care Code Status: Full Code Physician Review: Patient Assessed, Agree with Above Assessment and Plan Critical Care: No Time Spent Managing PTS Care (In Minutes): 35
[2023-07-06] MEDS: FOLIC ACID 1 MG TABLET PO SCH (08:17)
[2023-07-06] MEDS: ASPIRIN 81 MG CHEWABLE TABLET PO SCH (08:18)
[2023-07-06] MEDS: ENOXAPARIN 40 MG/0.4 ML SQ SCH (08:18)
[2023-07-06] MEDS: FUROSEMIDE 40 MG/4 ML VIAL IV SCH ×2 (08:18→16:42)
[2023-07-06] MEDS: NICOTINE 21 MG/PAT TD SCH (08:19)
[2023-07-06] MEDS: LACTULOSE 20 GM/30 ML UCUP PO SCH ×2 (08:19→14:00)
[2023-07-06] MEDS: Rifaximin 550 MG Tab PO SCH (08:19)
[2023-07-06] MEDS: SPIRONOLACTONE 25 MG TABLET PO SCH (08:25)
[2023-07-06] MEDS: ONDANSETRON 4 MG/2 ML VIAL IV PRN (11:52)
[2023-07-06] MEDS: ALBUTEROL 2.5 MG/3 ML NEB SOL NEB PRN (15:24)
[2023-07-06 16:08] VITALS: O2SAT 93
[2023-07-07 08:25] VITALS: BP 115/62; TEMP 97.7
== END 2023-07-06 18:29 | disposition home or self-care (01) | DRG 286 ==
LOC: ER 07:59 → ERHOLD 13:27 → 4TH 06-28 16:14
PROVIDERS: ADMIT Internal Medicine Nephrology; ATTEND Hospitalist
PROC: 4A023N7 Measurement of Cardiac Sampling and Pressure, Left Heart, Percutaneous Approach (ICD-10-PCS; principal; 2023-07-05)
PROC: B2111ZZ Fluoroscopy of Multiple Coronary Arteries using Low Osmolar Contrast (ICD-10-PCS; 2023-07-05)
DX: I11.0 Hypertensive heart disease with heart failure (principal); I50.23 Acute on chronic systolic (congestive) heart failure; I31.39 Other pericardial effusion (noninflammatory); K74.60 Unspecified cirrhosis of liver; D50.9 Iron deficiency anemia, unspecified; G47.00 Insomnia, unspecified; K21.9 Gastro-esophageal reflux disease without esophagitis; I27.20 Pulmonary hypertension, unspecified; I08.1 Rheumatic disorders of both mitral and tricuspid valves; F17.210 Nicotine dependence, cigarettes, uncomplicated; R07.81 Pleurodynia; Z60.2 Problems related to living alone; Z71.6 Tobacco abuse counseling; Z79.82 Long term (current) use of aspirin; Z79.890 Hormone replacement therapy; Z79.899 Other long term (current) drug therapy
CPT/HCPCS: 36415; 71045; 71250; 74176; 76705; 80048; 80061; 81001; 82140; 83735; 83880; 84100; 84132; 84439; 84443; 84484; 85025; 85610; 85730; 87086; 87088; 93005; 93306; 94640; 99285; J0461; J1644; J1650; J1940; J2001; J2250; J2270; J2405; J3010; J3480; J7030; J7040; J7613; J7644; P9047